=== PATIENT | female | born 1990 | race Caucasian/White ===

== ENCOUNTER 2018-02-20 20:20 | Emergency (ER) | payer OTHER ==
--- OUTSIDE RECORDS SUMMARY | 2018-02-20 20:22 | XMS REPORT | Clinical Summary ---
:1990 Author Organization [facility] Address [address] [place] [address] Phone Care Team Providers Name Role Phone Unavailable Primary Care Provider Unavailable Allergies No Known Allergies Current Medications Prescription Sig. Disp. Refills Start Date End Date Status levETIRAcetam Take 1 tablet 60 tablet 2 05/19/2017 Active (KEPPRA) 1000 MG (1,000 mg tablet total) by mouth 2 (two) times daily. vitamin Take 1 tablet 90 tablet 3 05/20/2017 Active w/obrjliq-cham-tkwb by mouth te ( PLUS) daily. 27 mg iron- 1 mg Tab folic acid Take 2 180 tablet 3 05/19/2017 05/19/2018 Active (FOLVITE) 1 MG tablets (2 mg tablet total) by mouth 2 (two) times daily. levETIRAcetam Take 1,000 mg 05/19/2017 Discontinued (KEPPRA) 1000 MG by mouth 2 tablet (two) times daily. escitalopram Take 1 tablet 30 tablet 2 05/20/2017 08/18/2017 oxalate (LEXAPRO) 5 (5 mg total) MG tablet by mouth daily for 90 days. Active Problems Problem Noted Date Hypokalemia 05/18/2017 Acute encephalopathy 05/14/2017 Seizure disorder (HCC) 05/14/2017 Leukocytosis 05/14/2017 Less than 8 weeks gestation of 05/14/2017 Resolved Problems Problem Noted Date Resolved Date Altered mental status 05/14/2017 05/18/2017 Encounters Date Type Specialty Care Team Description 05/14/2017 - [facility] General Internal Stew Soriano Acute 05/19/2017 Encounter Medicine MD Do encephalopathy;Less Pritesh, Dipaben than 8 weeks MD Hemant gestation of Maria Elena Clark, ;Leukocyto sis, unspecified Lina Becker, type;Seizure MD disorder (HCC);Transient alteration of awareness;Hypokalem ia after 02/19/2017 Social History Tobacco Use Types Packs/Day Years Used Date Never Smoker Alcohol Use Drinks/Week oz/Week Comments No Sex Assigned at Date Recorded Not on file Last Filed Vital Signs Vital Sign Reading Time Taken Blood Pressure 112/71 05/19/2017 7:39 AM GROUP PRODUCT MANAGER Pulse 84 05/19/2017 7:39 AM GROUP PRODUCT MANAGER Temperature 36.7 C (98 F) 05/19/2017 7:39 AM GROUP PRODUCT MANAGER Respiratory Rate 20 05/19/2017 7:39 AM GROUP PRODUCT MANAGER Oxygen Saturation 97% 05/19/2017 7:39 AM GROUP PRODUCT MANAGER Inhaled Oxygen Concentration - - Weight 63.5 kg (139 lb 14.4 oz) 05/19/2017 6:00 AM GROUP PRODUCT MANAGER Height 157.5 cm (5' 2") 05/16/2017 11:58 AM GROUP PRODUCT MANAGER Body Mass Index 25.59 05/19/2017 6:00 AM GROUP PRODUCT MANAGER Plan of Treatment Not on file Results RHYTHM STRIP - SCAN (05/20/2017 12:42 PM)CBC with platelet count + automated diff (05/18/2017 2:33 PM)Only the most recent of2 resultswithin the time period is included. Component Value Ref Range WBC 9.7 3.5 - 10.5 K/L RBC 4.31 3.93 - 5.22 M/L Hemoglobin 10.0 (L) 11.2 - 15.7 GM/DL Hematocrit 31.9 (L) 34.1 - 44.9 % MCV 74.0 (L) 79.4 - 94.8 fL MCH 23.2 (L) 25.6 - 32.2 pg MCHC 31.3 (L) 32.2 - 35.5 GM/DL RDW 19.0 (H) 11.7 - 14.4 % Platelets 259 150 - 450 K/CU MM MPV 9.9 9.4 - 12.3 fL nRBC 0 0 - 0 /100 WBC % Neutros 70 % % Lymphs 21 % % Monos 8 % % Eos 1 % % Baso 1 % # Neutros 6.75 (H) 1.56 - 6.13 K/L # Lymphs 2.01 1.18 - 3.74 K/L # Monos 0.75 (H) 0.24 - 0.36 K/L # Eos 0.07 0.04 - 0.36 K/L # Baso 0.08 0.01 - 0.08 K/L Immature Granulocytes-Relative 0 0 - 1 % Specimen Performing Laboratory Blood - Central Venous Line [address] [address] CBC with platelet count + automated diff (05/18/2017 2:33 PM)Only the most recent of2 resultswithin the time period is included. Specimen Performing Laboratory Blood Narrative The following orders were created for panel order CBC with platelet count + automated diff. Procedure Abnormality Status --------- ------ CBC with platelet count ...[[id number]]AbnormalFinal result Please view results for these tests on the individual orders. hCG, quantitative, (05/18/2017 2:32 PM) Component Value Ref Range hCG Quant 99140 (H) 0 - 10 mIU/mL Specimen Performing Laboratory Blood - Central Venous Line [address] [address] Narrative Non- Females: <10 mIU/mL Females: Gestation AgeReference Range(mIU/mL) 0.2-1 Week5-50 1-2 Cvepe13-241 2-3 Weeks 100-5,000 3-4 Weeks 500-10,000 4-5 Weeks 1,000-50,000 5-6 Weeks10,000-100,000 6-8 Weeks15,000-200,000 2-3 Months 10,000-100,000 Comprehensive metabolic panel (05/18/2017 2:32 PM) Component Value Ref Range Protein, Total 7.0 6.0 - 8.3 gm/dL Albumin 3.9 3.5 - 5.0 g/dL Alkaline Phosphatase 50 40 - 150 U/L Total Bilirubin 0.5 0.2 - 1.2 mg/dL Sodium 140 136 - 145 meq/L Potassium 3.4 (L) 3.5 - 5.1 meq/L Chloride 107 98 - 107 meq/L CO2 21 (L) 22 - 29 meq/L BUN 6 (L) 7 - 21 mg/dL Creatinine 0.54 (L) 0.57 - 1.25 mg/dL Glucose 76 70 - 105 mg/dL Calcium 9.2 8.4 - 10.2 mg/dL AST 57 (H) 5 - 34 U/L ALT 84 (H) 6 - 55 U/L EGFR 135Comment: ESTIMATED GFR IS NOT ACCURATE mL/min/1.73 sq m CREATININE CLEARANCE IN PREDICTING GLOMERULAR FILTRATION RATE. ESTIMATED GFR IS NOT APPLICABLE FOR DIALYSIS PATIENTS. Specimen Performing Laboratory Blood - Central Venous Line [address] first trimester (05/17/2017 5:30 AM) Specimen Performing Laboratory Hydrocapsule Narrative FINAL REPORT ULTRASOUND FIRST TRIMESTER, ULTRASOUND TRANSVAGINAL, ULTRASOUND DUPLEX DOPPLER HISTORY: Vaginal bleeding, COMPARISON: No comparison pelvic imaging TECHNIQUE: Real-time ultrasound of the pelvis was performed transabdominally and transvaginally. Examination included color and spectral Doppler evaluation of the ovaries and M-mode Doppler evaluation of the embryo. FINDINGS: The uterus measures 5.4 x 7.4 x 13.9 cm in size. No uterine mass lesion is visualized. There is an intrauterine gestational sac. Mean gestational sac diameter measures 2.8 cm, correlating with an estimated gestational age of 8 weeks 1 day. An embryonic pole is evident. Hugoton-rump length measures 0.63 cm, correlating with estimated gestational age of 6 weeks 4 days. Average ultrasound age is 7 weeks 3 days. There is a cardiac activity within the embryo with a heart rate of 108 bpm. A yolk sac is present in the gestational sac. The right ovary measures 2.0 x 2.5 x 3.2 cm.No right adnexal mass. Normal arterial and venous waveforms are present in the right ovary. The left ovary measures 2.4 x 2.8 x 3.4 cm. No left adnexal mass. Normal arterial and venous waveforms are present in the left ovary. Minimal anechoic free fluid is present in the pelvis, which can be a normal physiologic finding. IMPRESSION: 1. Single living intrauterine , with an average ultrasound age of 7 weeks 3 days. Signed: Lashell Garrido MD Report Verified Date/Time:05/17/2017 07:52:37 Reading Location: [facility] B1 C013X Ortho Consult Reading Room Procedure Note Interface, External Ris In - 06/02/2017 2:31 AM GROUP PRODUCT MANAGER FINAL REPORT ULTRASOUND FIRST TRIMESTER, ULTRASOUND TRANSVAGINAL, ULTRASOUND DUPLEX DOPPLER HISTORY: Vaginal bleeding, COMPARISON: No comparison pelvic imaging TECHNIQUE: Real-time ultrasound of the pelvis was performed transabdominally and transvaginally. Examination included color and spectral Doppler evaluation of the ovaries and M-mode Doppler evaluation of the embryo. FINDINGS: The uterus measures 5.4 x 7.4 x 13.9 cm in size. No uterine mass lesion is visualized. There is an intrauterine gestational sac. Mean gestational sac diameter measures 2.8 cm, correlating with an estimated gestational age of 8 weeks 1 day. An embryonic pole is evident. Hugoton-rump length measures 0.63 cm, correlating with estimated gestational age of 6 weeks 4 days. Average ultrasound age is 7 weeks 3 days. There is a cardiac activity within the embryo with a heart rate of 108 bpm. A yolk sac is present in the gestational sac. The right ovary measures 2.0 x 2.5 x 3.2 cm. No right adnexal mass. Normal arterial and venous waveforms are present in the right ovary. The left ovary measures 2.4 x 2.8 x 3.4 cm. No left adnexal mass. Normal arterial and venous waveforms are present in the left ovary. Minimal anechoic free fluid is present in the pelvis, which can be a normal physiologic finding. IMPRESSION: 1. Single living intrauterine , with an average ultrasound age of 7 weeks 3 days. Signed: Lashell Garrido MD Report Verified Date/Time: 05/17/2017 07:52:37 Reading Location: [facility] B1 [id number] Ortho Consult Reading Room Screen, urine (05/17/2017 4:38 AM) Component Value Ref Range Preg Test, Ur Positive Specimen Performing Laboratory Urine - Urine, Clean Catch [address] [address] MR brain without IV contrast (05/15/2017 7:10 PM) Specimen Performing Laboratory RIS Narrative FINAL REPORT MRI brain without contrast 05/15/2017 6:51 PM CLINICAL INDICATION: Epilepsy Stroke evaluation TECHNIQUE: Multiplanar, multisequence MR imaging of the brain was performed utilizing the following imaging sequences: Axial T1, T2, FLAIR, GRE, and DWI; sagittal and coronal T1-weighted images. COMPARISON: None available FINDINGS: Patient motion limits this examination. Pathology may be obscured. With this limitation mind, there is no infarct, hematoma, mass, extra-axial collection, or hydrocephalus. Normal appearing flow-voids are present in the major intracranial vascular structures. The sellar and pineal regions are normal. The craniovertebral junction is intact. The orbits, face, and skull base are without worrisome finding. IMPRESSION: Motion limited, but otherwise unremarkable noncontrast examination. Signed: Inderjit Cordova MD Report Verified Date/Time:05/15/2017 18:54:11 Reading Location: [facility] Reading Room Procedure Note Interface, External Ris In - 05/15/2017 7:11 PM GROUP PRODUCT MANAGER FINAL REPORT MRI brain without contrast 05/15/2017 6:51 PM CLINICAL INDICATION: Epilepsy Stroke evaluation TECHNIQUE: Multiplanar, multisequence MR imaging of the brain was performed utilizing the following imaging sequences: Axial T1, T2, FLAIR, GRE, and DWI; sagittal and coronal T1-weighted images. COMPARISON: None available FINDINGS: Patient motion limits this examination. Pathology may be obscured. With this limitation mind, there is no infarct, hematoma, mass, extra-axial collection, or hydrocephalus. Normal appearing flow-voids are present in the major intracranial vascular structures. The sellar and pineal regions are normal. The craniovertebral junction is intact. The orbits, face, and skull base are without worrisome finding. IMPRESSION: Motion limited, but otherwise unremarkable noncontrast examination. Signed: Inderjit Cordova MD Report Verified Date/Time: 05/15/2017 18:54:11 Reading Location: [facility] Reading Room AWAKE AND DROWSY (05/15/2017 10:56 AM) Specimen Performing Laboratory RIS Narrative DATE OF TEST: 05/15/2017 DATE OF REPORT 05/15/2017 ACC: [id number] EE Start time: 1034 Stop time: 1054 ICD-10: R56.9 CPT Code: 03115 HISTORY: 26 y/o woman with epilepsy found down and now with a prolonged post-ictal state. MEDICATIONS THAT COULD AFFECT EEG: Kera TECHNICAL SUMMARY: This is a digital video EEG recorded with 32 input channels reviewed with bipolar and referential montages using the modified combinatorial system nomenclature. DESCRIPTION OF RECORD: During the maximally alert state, the background consists of diffuse 5-7 Hz theta intermixed with rare 2-4 Hz delta activity. There is superimposed intermittent generalized rhythmic 4-6 Hz theta activity, consistent with ciganek rhythm which is a normal variant. The background demonstrates spontaneous variability. Drowsiness was characterized by background attenuation. No stage 2 sleep structures are present. EVENTS: During the study, the patient's mother mentioned that the patient stared off 4 times. There was no associated electrographic correlate. HV: Hyperventilation was not performed. PHOTIC STIMULATION: Flash stimulation was not done. IMPRESSION: Abnormal awake and drowsy EEG 1. Diffuse theta and rare delta slowing, reactive CLINICAL CORRELATION: The diffuse slowing seen in this record is consistent with a moderate encephalopathy. An EEG without epileptiform discharges does not exclude the possibility of epilepsy. If the clinical suspicion of epilepsy remains, consider additional EEG recordings. Marika Smith M.D. Neurophysiology Fellow Noemí Harper M.D. Neurophysiology Attending Procedure Note Interface, External Ris In - 05/15/2017 12:08 PM GROUP PRODUCT MANAGER DATE OF TEST: 05/15/2017 DATE OF REPORT 05/15/2017 ACC: [id number] EE Start time: 1034 Stop time: 1054 ICD-10: R56.9 CPT Code: 28957 HISTORY: 26 y/o woman with epilepsy found down and now with a prolonged post-ictal state. MEDICATIONS THAT COULD AFFECT EEG: Keppra TECHNICAL SUMMARY: This is a digital video EEG recorded with 32 input channels reviewed with bipolar and referential montages using the modified combinatorial system nomenclature. DESCRIPTION OF RECORD: During the maximally alert state, the background consists of diffuse 5-7 Hz theta intermixed with rare 2-4 Hz delta activity. There is superimposed intermittent generalized rhythmic 4-6 Hz theta activity, consistent with ciganek rhythm which is a normal variant. The background demonstrates spontaneous variability. Drowsiness was characterized by background attenuation. No stage 2 sleep structures are present. EVENTS: During the study, the patient's mother mentioned that the patient stared off 4 times. There was no associated electrographic correlate. HV: Hyperventilation was not performed. PHOTIC STIMULATION: Flash stimulation was not done. IMPRESSION: Abnormal awake and drowsy EEG 1. Diffuse theta and rare delta slowing, reactive CLINICAL CORRELATION: The diffuse slowing seen in this record is consistent with a moderate encephalopathy. An EEG without epileptiform discharges does not exclude the possibility of epilepsy. If the clinical suspicion of epilepsy remains, consider additional EEG recordings. Marika Smith M.D. Neurophysiology Fellow Noemí Harper M.D. Neurophysiology Attending Blood culture (05/15/2017 2:44 AM) Component Value Ref Range Result No growth in 5 days Specimen Performing Laboratory Blood - Arm, [place] [address] Procalcitonin (05/15/2017 2:43 AM) Component Value Ref Range Procalcitonin 0.17 (H) <0.05 ng/mL Specimen [place] [address] Narrative SEPSIS RISK (ng/mL) Low:0.05-0.50 Intermediate: 0.51-2.00 High: >=2.01 Lactic acid, venous, whole blood (05/15/2017 2:43 AM) Component Value Ref Range Lactate, Venous 0.6 0.5 - 2.2 mmol/L Specimen [place] [address] Narrative Effective 10/17/2015: Units/Reference Range Change New: 0.5-2.2 mmol/LPrevious: 5-20 mg/dL Prothrombin time/INR (05/15/2017 2:43 AM) Component Value Ref Range Protime 14.5 11.7 - 14.7 seconds INR 1.1 <=5.9 Specimen Performing Laboratory Blood [facility] [address] Narrative RECOMMENDED COUMADIN/WARFARIN INR THERAPY RANGES STANDARD DOSE: 2.0 - 3.0 Includes: PROPHYLAXIS for venous thrombosis, systemic embolization; TREATMENT for venous thrombosis and/or pulmonary embolus. HIGH RISK: Target INR is 2.5-3.5 for patients with mechanical heart valves. Phosphorus (05/15/2017 2:43 AM) Component Value Ref Range Phosphorus 3.1 2.3 - 4.7 mg/dL Specimen Performing Laboratory Blood [address] [address] Magnesium (05/15/2017 2:43 AM) Component Value Ref Range Magnesium 1.9 1.6 - 2.6 mg/dL Specimen Performing Laboratory [address] [address] Creatine Kinase (CK) (05/15/2017 2:43 AM) Component Value Ref Range Total CK 200 29 - 200 U/L Specimen Performing Laboratory [address] [address] Basic Metabolic Panel (05/15/2017 2:43 AM) Component Value Ref Range Sodium 139 136 - 145 meq/L Potassium 3.7 3.5 - 5.1 meq/L Chloride 110 (H) 98 - 107 meq/L CO2 19 (L) 22 - 29 meq/L BUN 8 7 - 21 mg/dL Creatinine 0.57 0.57 - 1.25 mg/dL Glucose 92 70 - 105 mg/dL Calcium 9.2 8.4 - 10.2 mg/dL EGFR 127Comment: ESTIMATED GFR IS NOT ACCURATE mL/min/1.73 sq m CREATININE CLEARANCE IN PREDICTING GLOMERULAR FILTRATION RATE. ESTIMATED GFR IS NOT APPLICABLE FOR DIALYSIS PATIENTS. Specimen Performing Laboratory Blood [address] [address] XR chest 1 view portable / bedside (05/15/2017 1:00 AM) Specimen Performing Laboratory GE RIS Narrative FINAL REPORT History: Infection. Comparison: None. Findings: A single view of the chest is submitted. The cardiomediastinal contours are unremarkable. There is no focal consolidation, pneumothorax, large pleural effusion or evidence of overt pulmonary edema. There is no acute bony abnormality. Impression: No acute abnormality. Signed: Shabnam Dailey MD Report Verified Date/Time:05/15/2017 01:06:06 Reading Location: [address] Reading Room Procedure Note Interface, External Ris In - 05/15/2017 1:30 AM GROUP PRODUCT MANAGER FINAL REPORT History: Infection. Comparison: None. Findings: A single view of the chest is submitted. The cardiomediastinal contours are unremarkable. There is no focal consolidation, pneumothorax, large pleural effusion or evidence of overt pulmonary edema. There is no acute bony abnormality. Impression: No acute abnormality. Signed: Shabnam Dailey MD Report Verified Date/Time: 05/15/2017 01:06:06 Reading Location: [address] Reading Room after 02/19/2017
--- OUTSIDE RECORDS SUMMARY | 2018-02-20 20:22 | XMS REPORT ---
:1990 [facility] Address [address] [place] [address] Care Team Providers Name Role Phone MILES RODAS Unavailable Unavailable Problems This patient has no known problems. Allergies, Adverse Reactions, Alerts This patient has no known allergies or adverse reactions. Medications This patient has no known medications. Results Test Description Test Time Test Comments Text Results Atomic Results Result Comments BLOOD CULTURE 2017-05-20 10:00:00 Test Item Value Reference Range Comments CULTURE (BEAKER) (test aagj=7781) No growth in 5 days HCG, QUANTITATIVE, [id number] 15:37:00 Test Item Value Reference Range Comments GONADOTROPIN, CHORIONIC (HCG) QUANT (BEAKER) 50361 mIU/mL 0-10 (test pfvn=612) Non- Females: <10 mIU/mL Females: Gestation Age Reference Range(mIU/mL) 0.2-1 Week 5-50 1-2 Weeks 50-500 2-3 Weeks 100-5,000 3-4Weeks 500-10,000 4 -5 Weeks 1,000-50,000 5-6 Weeks 10,000-100,000 6-8 Weeks 15,000-200,000 2-3 Months 10,000-100,000COMPREHENSIVE METABOLIC [id number] 15:10:00 Test Item Value Reference Range Comments TOTAL PROTEIN (BEAKER) 7.0 gm/dL 6.0-8.3 (test aajs=125) ALBUMIN (BEAKER) (test 3.9 g/dL 3.5-5.0 qtfj=6522) ALKALINE PHOSPHATASE 50 U/L 40-150 (BEAKER) (test bgzt=583) BILIRUBIN TOTAL (BEAKER) 0.5 mg/dL 0.2-1.2 (test vzbr=228) SODIUM (BEAKER) (test 140 meq/L 136-145 ubta=494) POTASSIUM (BEAKER) (test 3.4 meq/L 3.5-5.1 lagl=553) CHLORIDE (BEAKER) (test 107 meq/L 98-107 nfaw=443) CO2 (BEAKER) (test 21 meq/L 22-29 mjnk=050) BLOOD UREA NITROGEN 6 mg/dL 7-21 (BEAKER) (test xuhh=301) CREATININE (BEAKER) (test 0.54 mg/dL 0.57-1.25 ioez=483) GLUCOSE RANDOM (BEAKER) 76 mg/dL 70-105 (test woyh=893) CALCIUM (BEAKER) (test 9.2 mg/dL 8.4-10.2 fmto=384) AST (SGOT) (BEAKER) (test 57 U/L 5-34 bqji=762) ALT (SGPT) (BEAKER) (test 84 U/L 6-55 bzpq=753) EGFR (BEAKER) (test 135 mL/min/1.73 sq ESTIMATED GFR IS NOT yagc=7607) m ACCURATE CREATININE CLEARANCE IN PREDICTING GLOMERULAR FILTRATION RATE. ESTIMATED GFR IS NOT APPLICABLE FOR DIALYSIS PATIENTS. CBC W/PLT COUNT & AUTO [id number] 14:53:00 Test Item Value Reference Range Comments WHITE BLOOD CELL COUNT (BEAKER) (test zrlh=973) 9.7 K/ L 3.5-10.5 RED BLOOD CELL COUNT (BEAKER) (test jzle=823) 4.31 M/ L 3.93-5.22 HEMOGLOBIN (BEAKER) (test nhut=448) 10.0 GM/DL 11.2-15.7 HEMATOCRIT (BEAKER) (test five=848) 31.9 % 34.1-44.9 MEAN CORPUSCULAR VOLUME (BEAKER) (test tgpq=717) 74.0 fL 79.4-94.8 MEAN CORPUSCULAR HEMOGLOBIN (BEAKER) (test 23.2 pg 25.6-32.2 csxr=166) MEAN CORPUSCULAR HEMOGLOBIN CONC (BEAKER) (test 31.3 GM/DL 32.2-35.5 wqqp=706) RED CELL DISTRIBUTION WIDTH (BEAKER) (test 19.0 % 11.7-14.4 prvs=111) PLATELET COUNT (BEAKER) (test wlya=432) 259 K/CU MM 150-450 MEAN PLATELET VOLUME (BEAKER) (test uqpx=585) 9.9 fL 9.4-12.3 NUCLEATED RED BLOOD CELLS (BEAKER) (test 0 /100 WBC 0-0 wypg=312) NEUTROPHILS RELATIVE PERCENT (BEAKER) (test 70 % byoy=541) LYMPHOCYTES RELATIVE PERCENT (BEAKER) (test 21 % girj=345) MONOCYTES RELATIVE PERCENT (BEAKER) (test 8 % yjag=309) EOSINOPHILS RELATIVE PERCENT (BEAKER) (test 1 % hzsv=848) BASOPHILS RELATIVE PERCENT (BEAKER) (test 1 % bfwf=081) NEUTROPHILS ABSOLUTE COUNT (BEAKER) (test 6.75 K/ L 1.56-6.13 ipaq=210) LYMPHOCYTES ABSOLUTE COUNT (BEAKER) (test 2.01 K/ L 1.18-3.74 bmgn=623) MONOCYTES ABSOLUTE COUNT (BEAKER) (test 0.75 K/ L 0.24-0.36 hldk=979) EOSINOPHILS ABSOLUTE COUNT (BEAKER) (test 0.07 K/ L 0.04-0.36 zzdb=957) BASOPHILS ABSOLUTE COUNT (BEAKER) (test 0.08 K/ L 0.01-0.08 ullg=584) IMMATURE GRANULOCYTES-RELATIVE PERCENT (BEAKER) 0 % 0-1 (test pnnq=9270) U/S, , FIRST [id number] 07:52:00Reason for exam:-> Reason for exam:->please include transvaginal ultrasound for datingFINAL REPORT ULTRASOUND FIRST TRIMESTER , ULTRASOUND TRANSVAGINAL, ULTRASOUND DUPLEX DOPPLER HISTORY: Vaginal bleeding, COMPARISON: No comparison pelvic imaging TECHNIQUE: Real-time ultrasound of the pelvis was performed transabdominally and transvaginally. Examination included color and spectral Doppler evaluation of the ovaries and M- mode Doppler evaluationof the embryo. FINDINGS: The uterus measures 5.4 x 7.4 x 13.9 cm in size. No uterine mass lesion is visualized. There is an intrauterine gestational sac. Mean gestational sac diameter measures 2.8 cm, correlating with an estimated gestational age of 8 weeks 1 day. An embryonic pole is evident. [place]-rump length measures 0.63 cm, correlating with estimated [...] 7 weeks 3 days. Signed: Lashell Garrido Verified Date/Time: 05/17/2017 07:52:37 Reading Location: [address] Ortho Consult Reading Room PREGNANCY SCREEN, [id number] 05:28:00 Test Item Value Reference Range Comments TEST URINE (BEAKER) (test sjkb=625) Positive MR, BRAIN, WITHOUT [id number] 18:54:00Reason for exam:->Stroke evaluationFINAL REPORT MRI brain without contrast 2016 6:51 PM CLINICAL INDICATION: EpilepsyStroke evaluation TECHNIQUE: Multiplanar, multisequence MR imaging of the brain was performed utilizing the following imaging sequences: Axial T1, T2, FLAIR, GRE, and DWI; sagittal and coronalT1-weighted images. COMPARISON: None available FINDINGS: Patient motion [...] otherwise unremarkable noncontrast examination. Signed: Inderjit Cordova Verified Date/Time: 05/15/2017 18 :54:11 Reading Location: [facility] Radiology Reading Room EEG AWAKE AND [id number] 12:08:00Reason for exam:->? nonconvulsive statusDATE OF TEST: 2016DATE OF REPORT 05/15/2017 ACC: [id number] EE Start time: 1034 Stop time: 1054 ICD-10: R56.9CPT Code: 57874JAMIOHA: 26 y/o woman with epilepsy found down and now with a prolonged post-ictal state.MEDICATIONS THAT COULD AFFECT EEG: KeppraTECHNICAL SUMMARY: This is a digitalvideo EEG recorded with 32 input channels reviewed with bipolar and referential montages using the modified combinatorial system nomenclature.DESCRIPTION OF RECORD: During the maximally alert state, [...] 4 times. There was no associated electrographic correlate.HV: Hyperventilation was not performed. PHOTIC STIMULATION: Flash stimulation was not done.IMPRESSION: Abnormal awake and drowsy EEG1. Diffuse theta and rare delta slowing, reactiveCLINICAL CORRELATION : The diffuse slowing seen in this record is consistent with a moderate encephalopathy.An EEG without epileptiform discharges does not exclude the possibility of epilepsy. If the clinicalsuspicion of epilepsy remains, consider additional EEG recordings.Marika Smith M.D.Neurophysiology FellowNoemí Harper M.D.Neurophysiology Attending [id number] 04:27:00 Test Item Value Reference Range Comments PROCALCITONIN (BEAKER) (test nmnf=5818) 0.17 ng/mL <0.05 SEPSIS RISK (ng/mL)Low: 0.05-0.50Intermediate: 0.51-2.00High: & gt;=[id number] 03:15:00 Test Item Value Reference Range Comments PHOSPHORUS (BEAKER) (test ljob=086) 3.1 mg/dL 2.3-4.7 [id number] 03:15:00 Test Item Value Reference Range Comments MAGNESIUM (BEAKER) (test zgwi=015) 1.9 mg/dL 1.6-2.6 BASIC METABOLIC [id number] 03:15:00 Test Item Value Reference Range Comments SODIUM (BEAKER) (test 139 meq/L 136-145 nxzd=620) POTASSIUM (BEAKER) (test 3.7 meq/L 3.5-5.1 ppet=232) CHLORIDE (BEAKER) (test 110 meq/L 98-107 gxsv=460) CO2 (BEAKER) (test 19 meq/L 22-29 ldya=928) BLOOD UREA NITROGEN 8 mg/dL 7-21 (BEAKER) (test fjrp=291) CREATININE (BEAKER) (test 0.57 mg/dL 0.57-1.25 izvc=623) GLUCOSE RANDOM (BEAKER) 92 mg/dL 70-105 (test hdua=988) CALCIUM (BEAKER) (test 9.2 mg/dL 8.4-10.2 fpav=658) EGFR (BEAKER) (test 127 mL/min/1.73 sq m ESTIMATED GFR IS NOT vxqo=1109) ACCURATE CREATININE CLEARANCE IN PREDICTING GLOMERULAR FILTRATION RATE. ESTIMATED GFR IS NOT APPLICABLE FOR DIALYSIS PATIENTS. CREATINE KINASE (CK)2017-05-15 03:15:00 Test Item Value Reference Range Comments CREATINE KINASE TOTAL (BEAKER) (test zhsw=092) 200 U/L 29-200 LACTIC ACID, VENOUS, WHOLE [id number] 03:09:00 Test Item Value Reference Range Comments LACTATE BLOOD VENOUS (2) (BEAKER) (test 0.6 mmol/L 0.5-2.2 xwcv=2800) Effective 10/17/2015: Units/Reference Range ChangeNew: 0.5-2.2 mmol/L Previous: 5 -20 mg/dLPROTHROMBIN TIME/[id number] 03:07:00 Test Item Value Reference Range Comments PROTIME (BEAKER) (test gjwa=749) 14.5 seconds 11.7-14.7 INR (BEAKER) (test kzso=746) 1.1 <=5.9 RECOMMENDED COUMADIN/WARFARIN INR THERAPY RANGESSTANDARD DOSE: 2.0 - 3.0 Includes: PROPHYLAXIS forvenous thrombosis, systemic embolization; TREATMENT for venous thrombosis and/or pulmonary embolus.HIGH RISK: Target INR is 2.5-3.5 for patients with mechanical heart valves.CBC W/PLT COUNT & AUTO [id number] 03:00:00 Test Item Value Reference Range Comments WHITE BLOOD CELL COUNT (BEAKER) (test fhha=016) 21.6 K/ L 3.5-10.5 RED BLOOD CELL COUNT (BEAKER) (test ikah=641) 4.04 M/ L 3.93-5.22 HEMOGLOBIN (BEAKER) (test azdv=095) 9.3 GM/DL 11.2-15.7 HEMATOCRIT (BEAKER) (test qrbu=958) 30.1 % 34.1-44.9 MEAN CORPUSCULAR VOLUME (BEAKER) (test kvpu=126) 74.5 fL 79.4-94.8 MEAN CORPUSCULAR HEMOGLOBIN (BEAKER) (test 23.0 pg 25.6-32.2 myhg=811) MEAN CORPUSCULAR HEMOGLOBIN CONC (BEAKER) (test 30.9 GM/DL 32.2-35.5 gpuf=418) RED CELL DISTRIBUTION WIDTH (BEAKER) (test 19.3 % 11.7-14.4 emcq=102) PLATELET COUNT (BEAKER) (test ripj=038) 250 K/CU MM 150-450 MEAN PLATELET VOLUME (BEAKER) (test iklb=726) 10.3 fL 9.4-12.3 NUCLEATED RED BLOOD CELLS (BEAKER) (test 0 /100 WBC 0-0 igeh=003) NEUTROPHILS RELATIVE PERCENT (BEAKER) (test 83 % jstl=462) LYMPHOCYTES RELATIVE PERCENT (BEAKER) (test 9 % sxza=841) MONOCYTES RELATIVE PERCENT (BEAKER) (test 8 % oupd=976) EOSINOPHILS RELATIVE PERCENT (BEAKER) (test 0 % byka=713) BASOPHILS RELATIVE PERCENT (BEAKER) (test 0 % oacm=290) NEUTROPHILS ABSOLUTE COUNT (BEAKER) (test 17.85 K/ L 1.56-6.13 vlnw=279) LYMPHOCYTES ABSOLUTE COUNT (BEAKER) (test 1.98 K/ L 1.18-3.74 ntwj=396) MONOCYTES ABSOLUTE COUNT (BEAKER) (test 1.62 K/ L 0.24-0.36 bwaq=626) EOSINOPHILS ABSOLUTE COUNT (BEAKER) (test 0.01 K/ L 0.04-0.36 gkkh=850) BASOPHILS ABSOLUTE COUNT (BEAKER) (test 0.04 K/ L 0.01-0.08 rtkv=531) IMMATURE GRANULOCYTES-RELATIVE PERCENT (BEAKER) 1 % 0-1 (test mulk=1032) RAD, CHEST, 1 VIEW, NON [id number] 01:06:00Reason for exam:->possible infectionShould this be performed at the bedside?->YesFINAL REPORT History: Infection. Comparison: None. Findings: A single view of the chest is submitted. The cardiomediastinal contours are unremarkable. There is no focal consolidation, pneumothorax, large pleural effusion or evidence of overt pulmonary edema. There is no acute bony abnormality. Impression: No acute abnormality. Signed: Shabnam Dailey MDReport Verified Date/Time: 2016 01:06:06 Reading Location: [address] Reading Room
[2018-02-20] MEDS ORDERED: NA CHLORIDE 0.9% 1,000 ML ONE ×2 (20:32→21:41)
[2018-02-20] MEDS ORDERED: NA CHLORIDE 0.9% 100 ML IV ONE (20:58)
[2018-02-20] MEDS ORDERED: LEVETIRACETAM 500 MG/5 ML VIAL IV ONE (20:58)
[2018-02-20 21:02] LABS: Absolute Lymphocytes (CBC) 3.4 K/uL (0.7-4.9); Absolute Monocytes 1.2 K/uL (0.1-1.3); Absolute Neutrophil 5.3 K/uL (1.8-8.0); Basophils % 0.9 % (0-1.3); Lymphocytes % 33.7 % (15.3-44.8); MCH 31.1 pg (27.0-35.0); MCV 91.9 fL (80-100); MPV 8.4 fL (7.6-11.3); Monocytes % 11.7 % (3.3-12.3); RBC Red Blood Cell Count 4.36 M/uL (3.86-4.86)
[2018-02-20 21:19] LABS: Albumin 4.4 g/dL (3.4-5.0); Bilirubin Total 0.4 mg/dL (0.2-1.0); Potassium 3.3 mmol/L (3.5-5.1); Protein, Total 8.1 g/dL (6.4-8.2)
[2018-02-20 21:49] LABS: Urine Blood 1+ (NEG); Urine Glucose NEGATIVE (NEG); Urine Protein 1+ (NEG); Urine Specific Gravity >1.030 (1.005-1.030); Urine pH 5.5 (5.0-7.0)
--- NOTE | 2018-02-21 00:19 | EDPHYS ---
Physician Documentation [facility] Name: Heather Hope Age: 27 yrs Sex: Female : 1990 Arrival Date: 02/20/2018 Time: 20:23 Bed 2 Private MD: ED Physician Alexandre Tomas HPI: 02/20 20:30 This 27 yrs old Female presents to ER via EMS with complaints of Seizure. ps1 20:30 long history of seizure and on Keppra. Unknown compliance. Has history of stress ps1 induced seizures. Managed by Monserrat. Had two witnessed seizures today. Got into argument with boyfriend today. Seizure lasted minutes and EMS called. 2mg ativan given and then had one in ambulance that spontaneously resolved. Pt currently post ictal. . 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 - Social history:: Smoking status: Patient/guardian denies using tobacco. - Ebola Screening: : No symptoms or risks identified at this time. ROS: 20:30 Unable to obtain ROS due to obtunded state, post ictal. ps1 Exam: 20:30 Head/Face: Normocephalic, atraumatic. Eyes: Pupils equal round and reactive to light, ps1 extra-ocular motions intact. Lids and lashes normal. Conjunctiva and sclera are non-icteric and not injected. Chest/axilla: Normal chest wall appearance and motion. Nontender with no deformity. No lesions are appreciated. Respiratory: Lungs have equal breath sounds bilaterally, clear to auscultation and percussion. No rales, rhonchi or wheezes noted. No increased work of breathing, no retractions or nasal flaring. Abdomen/GI: Soft, non-tender, with normal bowel sounds. No distension or tympany. No guarding or rebound. No evidence of tenderness throughout. 20:30 Constitutional: The patient appears ubtunded and post ictal 20:30 Cardiovascular: Rate: tachycardic, Rhythm: regular, Pulses: no pulse deficits are appreciated. 02/21 00:20 Head/face: Noted is contusion, of the forehead. ps1 Vital Signs: 02/20 20:26 BP 141 / 88; Pulse 138; Resp 20; Pulse Ox 99% on R/A; Weight 70.31 kg; Height 5 ft. 3 tl2 in. (160.02 cm); 21:15 BP 121 / 81; Pulse 126; Resp 14; Pulse Ox 99% on R/A; tl2 21:31 BP 128 / 80; Pulse 119; Resp 22; Pulse Ox 97% on R/A; tl2 22:00 BP 126 / 81; Pulse 101; Resp 18; Pulse Ox 97% on R/A; tl2 22:46 BP 117 / 77; Pulse 94; Resp 24; Pulse Ox 99% on R/A; tl2 23:35 BP 112 / 76; Pulse 88; Resp 14; Pulse Ox 98% on R/A; tl2 02/21 00:41 BP 109 / 71; Pulse 89; Resp 18; Pulse Ox 98% on R/A; tl2 02/20 20:26 Body Mass Index 27.46 (70.31 kg, 160.02 cm) tl2 Thomas Coma Score: 02/20 20:26 Eye Response: to voice(3). Verbal Response: confused(4). Motor Response: withdraws from tl2 pain(4). Total: 11. 21:31 Eye Response: spontaneous(4). Verbal Response: oriented(5). Motor Response: obeys tl2 commands(6). Total: 15. MDM: 20:36 Patient medically screened. ps1 02/21 00:19 Data reviewed: vital signs, nurses notes, lab test result(s), and as a result, I will ps1 discharge patient. Counseling: I had a detailed discussion with the patient and/or guardian regarding: the historical points, exam findings, and any diagnostic results supporting the discharge/admit diagnosis, the need for outpatient follow up, a neurologist. 02/20 20:46 Order name: Lactate; Complete Time: 22:06 ps1 02/20 20:46 Order name: CBC with Diff; Complete Time: 21:11 ps1 02/20 20:46 Order name: CMP; Complete Time: 21:23 ps1 02/20 21:32 Order name: Urine Dipstick--Ancillary (enter results); Complete Time: 22:06 2 02/20 21:32 Order name: Urine --Ancillary (enter results); Complete Time: 22:06 mw2 02/20 20:46 Order name: Urine Dipstick-Ancillary (obtain specimen); Complete Time: 21:33 ps1 02/20 21:16 Order name: Straight Cath; Complete Time: 21:33 tl2 02/20 23:54 Order name: Lactate Sepsis 2 HR Follow-up; Complete Time: 00:16 EDMS Administered Medications: 02/20 20:48 Drug: NS 0.9% 1000 ml Route: IV; Rate: 1 bolus; Site: right hand; tl1 21:36 Follow up: IV Status: Completed infusion tl1 20:56 Drug: Keppra 1000 mg Route: IV; Rate: calculated rate; Infused Over: 30 mins; Site: tl2 right hand; 21:32 Follow up: IV Status: Completed infusion tl2 21:36 Drug: NS 0.9% 1000 ml Route: IV; Rate: 1 bolus; Site: right hand; tl1 02/21 00:43 Follow up: IV Status: Completed infusion; IV Intake: 1000ml tl2 Disposition: 00:20 Chart complete. ps1 Disposition: 02/21/18 00:18 Discharged to Home. Impression: recurrent seizure. - Condition is Stable. - Discharge Instructions: Seizure, Adult. - Medication Reconciliation Form, Thank You Letter, Antibiotic Education, Prescription Opioid Use form. - Follow up: Private Physician; When: As needed; Reason: Recheck today's complaints, Continuance of care, Re-evaluation by your physician. Follow up: Emergency Department; When: As needed; Reason: Worsening of condition. - Problem is an acute exacerbation. - Symptoms have improved. Signatures: Dispatcher [employer] [facility] Sofia Smith RN RN tl1 Kristyn Garza RN RN tl2 Alexandre Tomas MD MD ps1 Corrections: (The following items were deleted from the chart) 02/20 23:29 23:20 LACTATE+C.LAB.BRZ ordered. [facility] 02/21 00:58 00:18 02/21/2018 00:18 Discharged to Home. Impression: recurrent seizure. Condition is tl2 Stable. Forms are Medication Reconciliation Form, Thank You Letter, Antibiotic Education, Prescription Opioid Use. Follow up: Private Physician; When: As needed; Reason: Recheck today's complaints, Continuance of care, Re-evaluation by your physician. Follow up: Emergency Department; When: As needed; Reason: Worsening of condition. Problem is an acute exacerbation. Symptoms have improved. ps1
--- NOTE | 2018-02-21 00:19 | ER ---
Nurse's Notes [facility] Name: Heather Hope Age: 27 yrs Sex: Female : 1990 Arrival Date: 02/20/2018 Time: 20:23 Bed 2 Private MD: Diagnosis: recurrent seizure Presentation: 02/20 20:24 Presenting complaint: EMS states: Pt had a small seizure today at 1300 and had another tl2 seizure that last 4 mins prior to EMS arrival. EMS gave 2 mg IM Ativan. EMS reports that pt had short seizure en route but resolved on it's own. Pt is post ictal. Transition of care: patient was not received from another setting of care. Onset of symptoms was February 20, 2018 at 20:00. Risk Assessment: Do you want to hurt yourself or someone else? Patient reports no desire to harm self or others. Initial Sepsis Screen: Does the patient meet any 2 criteria? No. Patient's initial sepsis screen is negative. Does the patient have a suspected source of infection? No. Patient's initial sepsis screen is negative. Care prior to arrival: Medication(s) given: 2 mg IM ativan. 20:24 Method Of Arrival: EMS: [facility] tl2 20:24 Acuity: DARLYN 2 tl2 Triage Assessment: 20:26 General: Appears in no apparent distress. uncomfortable, Behavior is listless, post tl2 ictal. Pain: Unable to use pain scale. Patient is disoriented. Neuro: Level of Consciousness is post ictal, Oriented to non verbal. Cardiovascular: Patient's skin is warm and dry. Respiratory: Airway is patent Respiratory effort is even, unlabored, Respiratory pattern is regular, symmetrical. GI: No signs and/or symptoms were reported involving the gastrointestinal system. : No signs and/or symptoms were reported regarding the genitourinary system. Derm: Skin is pink, warm \T\ dry. Injury Description: Head injury sustained to forehead is closed, small hematoma was sustained 30-60 minutes ago. 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 - Social history:: Smoking status: Patient/guardian denies using tobacco. - Ebola Screening: : No symptoms or risks identified at this time. Screenin:29 Abuse screen: Denies threats or abuse. Nutritional screening: No deficits noted. tl2 Tuberculosis screening: No symptoms or risk factors identified. Fall Risk Fall in past 12 months (25 points). Secondary diagnosis (15 points) seizures, IV access (20 points). Assessment: 20:30 General: see triage assessment. tl2 21:15 Reassessment: Patient appears in no apparent distress at this time. No changes from tl2 previously documented assessment. Patient and/or family updated on plan of care and expected duration. Pain level reassessed. 22:00 Reassessment: Pt beginning to wake up and is AOx3. Awaiting further lab results. tl2 23:35 Reassessment: Patient appears in no apparent distress at this time. Patient and/or tl2 family updated on plan of care and expected duration. Pain level reassessed. Patient is alert, oriented x 3, equal unlabored respirations, skin warm/dry/pink. 02/21 00:41 Reassessment: Pt was able to ambulate around room. Called mother to picker/puller patient. tl2 Vital Signs: 02/20 20:26 BP 141 / 88; Pulse 138; Resp 20; Pulse Ox 99% on R/A; Weight 70.31 kg; Height 5 ft. 3 tl2 in. (160.02 cm); 21:15 BP 121 / 81; Pulse 126; Resp 14; Pulse Ox 99% on R/A; tl2 21:31 BP 128 / 80; Pulse 119; Resp 22; Pulse Ox 97% on R/A; tl2 22:00 BP 126 / 81; Pulse 101; Resp 18; Pulse Ox 97% on R/A; tl2 22:46 BP 117 / 77; Pulse 94; Resp 24; Pulse Ox 99% on R/A; tl2 23:35 BP 112 / 76; Pulse 88; Resp 14; Pulse Ox 98% on R/A; tl2 02/21 00:41 BP 109 / 71; Pulse 89; Resp 18; Pulse Ox 98% on R/A; tl2 02/20 20:26 Body Mass Index 27.46 (70.31 kg, 160.02 cm) tl2 Thomas Coma Score: 02/20 20:26 Eye Response: to voice(3). Verbal Response: confused(4). Motor Response: withdraws from tl2 pain(4). Total: 11. 21:31 Eye Response: spontaneous(4). Verbal Response: oriented(5). Motor Response: obeys tl2 commands(6). Total: 15. ED Course: 20:23 Patient arrived in ED. tl2 20:24 Alexandre Tomas MD is Attending Physician. ps1 20:26 Triage completed. tl2 20:26 Arm band placed on right wrist. tl2 20:29 Patient has correct armband on for positive identification. Bed in low position. Call tl2 light in reach. Side rails up X2. Adult w/ patient. Seizure precautions initiated. 20:29 Inserted saline lock: 22 gauge in right hand, using aseptic technique. Blood collected. tl2 placed by CLAUDIA Padron. 02/21 00:41 No provider procedures requiring assistance completed. IV discontinued, intact, tl2 bleeding controlled, No redness/swelling at site. Pressure dressing applied. 00:57 Kristyn Garza RN is Primary Nurse. tl2 Administered Medications: 02/20 20:48 Drug: NS 0.9% 1000 ml Route: IV; Rate: 1 bolus; Site: right hand; tl1 21:36 Follow up: IV Status: Completed infusion tl1 20:56 Drug: Keppra 1000 mg Route: IV; Rate: calculated rate; Infused Over: 30 mins; Site: tl2 right hand; 21:32 Follow up: IV Status: Completed infusion tl2 21:36 Drug: NS 0.9% 1000 ml Route: IV; Rate: 1 bolus; Site: right hand; tl1 02/21 00:43 Follow up: IV Status: Completed infusion; IV Intake: 1000ml tl2 Intake: 00:43 IV: 1000ml; Total: 1000ml. tl2 Outcome: 00:18 Discharge ordered by . ps1 00:41 Discharged to home via wheelchair, with family. tl2 00:41 Condition: stable 00:41 Discharge instructions given to patient, family, Instructed on discharge instructions, follow up and referral plans. Demonstrated understanding of instructions, follow-up care. 00:58 Patient left the ED. tl2 Signatures: Sofia Smith RN RN tl1 Kristyn Garza RN RN tl2 Tomas, Alexandre, MD MD ps1
[2018-02-21 01:22] VITALS: O2SAT 98
[2018-02-21 01:23] VITALS: BP 109/71
== END 2018-02-21 00:58 | disposition home or self-care (01) ==
LOC: ER 20:20
DX: G40.802 Other epilepsy, not intractable, without status epilepticus (principal)
CPT/HCPCS: 36415; 80053; 81003; 81025; 83605; 85025; 96361; 96365; 99284; J1953; J7030

== ENCOUNTER 2018-04-08 16:36 | Emergency (ER) | payer OTHER ==
--- OUTSIDE RECORDS SUMMARY | 2018-04-08 16:38 | XMS REPORT ---
:1990 [facility] Address [address] [place] [address] Care Team Providers Name Role Phone MILES RODAS Unavailable Unavailable Problems This patient has no known problems. Allergies, Adverse Reactions, Alerts This patient has no known allergies or adverse reactions. Medications This patient has no known medications. Results Test Description Test Time Test Comments Text Results Atomic Results Result Comments BLOOD CULTURE 2017-05-20 10:00:00 Test Item Value Reference Range Comments CULTURE (BEAKER) (test lmqi=7181) No growth in 5 days HCG, QUANTITATIVE, [id number] 15:37:00 Test Item Value Reference Range Comments GONADOTROPIN, CHORIONIC (HCG) QUANT (BEAKER) 61960 mIU/mL 0-10 (test wiks=855) Non- Females: <10 mIU/mL Females: Gestation Age Reference Range(mIU/mL) 0.2-1 Week 5-50 1-2 Weeks 50-500 2-3 Weeks 100-5,000 3-4Weeks 500-10,000 4 -5 Weeks 1,000-50,000 5-6 Weeks 10,000-100,000 6-8 Weeks 15,000-200,000 2-3 Months 10,000-100,000COMPREHENSIVE METABOLIC [id number] 15:10:00 Test Item Value Reference Range Comments TOTAL PROTEIN (BEAKER) 7.0 gm/dL 6.0-8.3 (test qdga=074) ALBUMIN (BEAKER) (test 3.9 g/dL 3.5-5.0 ykmu=0458) ALKALINE PHOSPHATASE 50 U/L 40-150 (BEAKER) (test deob=221) BILIRUBIN TOTAL (BEAKER) 0.5 mg/dL 0.2-1.2 (test acns=224) SODIUM (BEAKER) (test 140 meq/L 136-145 fbmw=392) POTASSIUM (BEAKER) (test 3.4 meq/L 3.5-5.1 tppa=379) CHLORIDE (BEAKER) (test 107 meq/L 98-107 pbjs=832) CO2 (BEAKER) (test 21 meq/L 22-29 evbd=817) BLOOD UREA NITROGEN 6 mg/dL 7-21 (BEAKER) (test snyr=222) CREATININE (BEAKER) (test 0.54 mg/dL 0.57-1.25 uzkl=965) GLUCOSE RANDOM (BEAKER) 76 mg/dL 70-105 (test aqno=877) CALCIUM (BEAKER) (test 9.2 mg/dL 8.4-10.2 hoxj=833) AST (SGOT) (BEAKER) (test 57 U/L 5-34 cboy=774) ALT (SGPT) (BEAKER) (test 84 U/L 6-55 yimf=202) EGFR (BEAKER) (test 135 mL/min/1.73 sq ESTIMATED GFR IS NOT raia=6294) m ACCURATE CREATININE CLEARANCE IN PREDICTING GLOMERULAR FILTRATION RATE. ESTIMATED GFR IS NOT APPLICABLE FOR DIALYSIS PATIENTS. CBC W/PLT COUNT & AUTO [id number] 14:53:00 Test Item Value Reference Range Comments WHITE BLOOD CELL COUNT (BEAKER) (test cejj=106) 9.7 K/ L 3.5-10.5 RED BLOOD CELL COUNT (BEAKER) (test ptyi=731) 4.31 M/ L 3.93-5.22 HEMOGLOBIN (BEAKER) (test dwuc=591) 10.0 GM/DL 11.2-15.7 HEMATOCRIT (BEAKER) (test gogc=310) 31.9 % 34.1-44.9 MEAN CORPUSCULAR VOLUME (BEAKER) (test lark=573) 74.0 fL 79.4-94.8 MEAN CORPUSCULAR HEMOGLOBIN (BEAKER) (test 23.2 pg 25.6-32.2 wehg=555) MEAN CORPUSCULAR HEMOGLOBIN CONC (BEAKER) (test 31.3 GM/DL 32.2-35.5 yujx=138) RED CELL DISTRIBUTION WIDTH (BEAKER) (test 19.0 % 11.7-14.4 kbax=684) PLATELET COUNT (BEAKER) (test tany=729) 259 K/CU MM 150-450 MEAN PLATELET VOLUME (BEAKER) (test kxaf=572) 9.9 fL 9.4-12.3 NUCLEATED RED BLOOD CELLS (BEAKER) (test 0 /100 WBC 0-0 nbyb=943) NEUTROPHILS RELATIVE PERCENT (BEAKER) (test 70 % lpts=582) LYMPHOCYTES RELATIVE PERCENT (BEAKER) (test 21 % kzdc=721) MONOCYTES RELATIVE PERCENT (BEAKER) (test 8 % idcy=252) EOSINOPHILS RELATIVE PERCENT (BEAKER) (test 1 % otti=623) BASOPHILS RELATIVE PERCENT (BEAKER) (test 1 % dago=129) NEUTROPHILS ABSOLUTE COUNT (BEAKER) (test 6.75 K/ L 1.56-6.13 vqcp=171) LYMPHOCYTES ABSOLUTE COUNT (BEAKER) (test 2.01 K/ L 1.18-3.74 hqju=155) MONOCYTES ABSOLUTE COUNT (BEAKER) (test 0.75 K/ L 0.24-0.36 ehqh=220) EOSINOPHILS ABSOLUTE COUNT (BEAKER) (test 0.07 K/ L 0.04-0.36 kdad=435) BASOPHILS ABSOLUTE COUNT (BEAKER) (test 0.08 K/ L 0.01-0.08 tuxu=593) IMMATURE GRANULOCYTES-RELATIVE PERCENT (BEAKER) 0 % 0-1 (test rrdv=7525) U/S, , FIRST [id number] 07:52:00Reason for exam:-> Reason for exam:->please include [...] 1 day. An embryonic pole is evident. [place]-rump length measures 0.63 cm, correlating with estimated [...] Garrido Verified Date/Time: 05/17/2017 07:52:37 Reading Location: [address] Ortho Consult Reading Room PREGNANCY SCREEN, [id number] 05:28:00 Test Item Value Reference Range Comments TEST URINE (BEAKER) (test eivb=043) Positive MR, BRAIN, WITHOUT [id number] 18:54:00Reason for exam:->Stroke evaluationFINAL REPORT MRI brain [...] Verified Date/Time: 05/15/2017 18 :54:11 Reading Location: [facility] Radiology Reading Room EEG AWAKE AND [id number] 12:08:00Reason for exam:->? nonconvulsive statusDATE OF TEST: 2016DATE OF REPORT 05/15/2017 ACC: [id number] EE Start time: 1034 Stop time: 1054 ICD-10: R56.9CPT Code: 72839OIKNJIH: 26 y/o woman with epilepsy found down [...] recordings.Marika Smith M.D.Neurophysiology FellowNoemí Harper M.D.Neurophysiology Attending [id number] 04:27:00 Test Item Value Reference Range Comments PROCALCITONIN (BEAKER) (test aznq=5235) 0.17 ng/mL <0.05 SEPSIS RISK (ng/mL)Low: 0.05-0.50Intermediate: 0.51-2.00High: & gt;=[id number] 03:15:00 Test Item Value Reference Range Comments PHOSPHORUS (BEAKER) (test bckl=873) 3.1 mg/dL 2.3-4.7 [id number] 03:15:00 Test Item Value Reference Range Comments MAGNESIUM (BEAKER) (test sgnv=975) 1.9 mg/dL 1.6-2.6 BASIC METABOLIC [id number] 03:15:00 Test Item Value Reference Range Comments SODIUM (BEAKER) (test 139 meq/L 136-145 buzg=793) POTASSIUM (BEAKER) (test 3.7 meq/L 3.5-5.1 fxbe=590) CHLORIDE (BEAKER) (test 110 meq/L 98-107 bnce=473) CO2 (BEAKER) (test 19 meq/L 22-29 ikpe=729) BLOOD UREA NITROGEN 8 mg/dL 7-21 (BEAKER) (test gecn=413) CREATININE (BEAKER) (test 0.57 mg/dL 0.57-1.25 ljhl=848) GLUCOSE RANDOM (BEAKER) 92 mg/dL 70-105 (test swrc=171) CALCIUM (BEAKER) (test 9.2 mg/dL 8.4-10.2 mqhi=662) EGFR (BEAKER) (test 127 mL/min/1.73 sq m ESTIMATED GFR IS NOT fvjo=9201) ACCURATE CREATININE CLEARANCE IN PREDICTING GLOMERULAR FILTRATION RATE. ESTIMATED GFR IS NOT APPLICABLE FOR DIALYSIS PATIENTS. CREATINE KINASE (CK)2017-05-15 03:15:00 Test Item Value Reference Range Comments CREATINE KINASE TOTAL (BEAKER) (test abhm=551) 200 U/L 29-200 LACTIC ACID, VENOUS, WHOLE [id number] 03:09:00 Test Item Value Reference Range Comments LACTATE BLOOD VENOUS (2) (BEAKER) (test 0.6 mmol/L 0.5-2.2 evnc=2735) Effective 10/17/2015: Units/Reference Range ChangeNew: 0.5-2.2 mmol/L Previous: 5 -20 mg/dLPROTHROMBIN TIME/[id number] 03:07:00 Test Item Value Reference Range Comments PROTIME (BEAKER) (test wdwd=038) 14.5 seconds 11.7-14.7 INR (BEAKER) (test yjoq=933) 1.1 <=5.9 RECOMMENDED COUMADIN/WARFARIN INR THERAPY RANGESSTANDARD DOSE: 2.0 - 3.0 Includes: PROPHYLAXIS forvenous thrombosis, systemic embolization; TREATMENT for venous thrombosis and/or pulmonary embolus.HIGH RISK: Target INR is 2.5-3.5 for patients with mechanical heart valves.CBC W/PLT COUNT & AUTO [id number] 03:00:00 Test Item Value Reference Range Comments WHITE BLOOD CELL COUNT (BEAKER) (test botg=860) 21.6 K/ L 3.5-10.5 RED BLOOD CELL COUNT (BEAKER) (test kdtu=755) 4.04 M/ L 3.93-5.22 HEMOGLOBIN (BEAKER) (test mekb=533) 9.3 GM/DL 11.2-15.7 HEMATOCRIT (BEAKER) (test yyld=173) 30.1 % 34.1-44.9 MEAN CORPUSCULAR VOLUME (BEAKER) (test ymog=069) 74.5 fL 79.4-94.8 MEAN CORPUSCULAR HEMOGLOBIN (BEAKER) (test 23.0 pg 25.6-32.2 ricu=948) MEAN CORPUSCULAR HEMOGLOBIN CONC (BEAKER) (test 30.9 GM/DL 32.2-35.5 iqja=002) RED CELL DISTRIBUTION WIDTH (BEAKER) (test 19.3 % 11.7-14.4 kakv=423) PLATELET COUNT (BEAKER) (test vfyc=499) 250 K/CU MM 150-450 MEAN PLATELET VOLUME (BEAKER) (test ycqj=771) 10.3 fL 9.4-12.3 NUCLEATED RED BLOOD CELLS (BEAKER) (test 0 /100 WBC 0-0 bcik=890) NEUTROPHILS RELATIVE PERCENT (BEAKER) (test 83 % ribg=150) LYMPHOCYTES RELATIVE PERCENT (BEAKER) (test 9 % sehn=279) MONOCYTES RELATIVE PERCENT (BEAKER) (test 8 % xewp=121) EOSINOPHILS RELATIVE PERCENT (BEAKER) (test 0 % dhom=279) BASOPHILS RELATIVE PERCENT (BEAKER) (test 0 % cpak=891) NEUTROPHILS ABSOLUTE COUNT (BEAKER) (test 17.85 K/ L 1.56-6.13 kaoy=534) LYMPHOCYTES ABSOLUTE COUNT (BEAKER) (test 1.98 K/ L 1.18-3.74 snjk=245) MONOCYTES ABSOLUTE COUNT (BEAKER) (test 1.62 K/ L 0.24-0.36 szwc=132) EOSINOPHILS ABSOLUTE COUNT (BEAKER) (test 0.01 K/ L 0.04-0.36 idab=402) BASOPHILS ABSOLUTE COUNT (BEAKER) (test 0.04 K/ L 0.01-0.08 roaz=984) IMMATURE GRANULOCYTES-RELATIVE PERCENT (BEAKER) 1 % 0-1 (test alys=8881) RAD, CHEST, 1 VIEW, NON [id number] 01:06:00Reason for exam:->possible infectionShould this be performed [...] MDReport Verified Date/Time: 2016 01:06:06 Reading Location: [address] Reading Room
--- OUTSIDE RECORDS SUMMARY | 2018-04-08 16:38 | XMS REPORT | Clinical Summary ---
:1990 Author Organization [facility] Address [address] [place] [address] Phone Care Team Providers Name Role Phone Unavailable Primary Care Provider Unavailable Allergies No Known Allergies Current Medications Prescription Sig. Disp. Refills Start Date End Date Status levETIRAcetam Take 1 tablet 60 tablet 2 05/19/2017 Active (KEPPRA) 1000 MG (1,000 mg tablet total) by mouth 2 (two) times daily. vitamin Take 1 tablet 90 tablet 3 05/20/2017 Active w/kdjurht-uhgy-lyna by mouth te ( PLUS) daily. 27 [...] Type Specialty Care Team Description 05/14/2017 - [facility] General Internal Stew Soriano Acute 05/19/2017 Encounter Medicine MD Do encephalopathy;Less Pritesh, Dipaben than 8 weeks MD Hemant gestation of Maria Elena Clark, ;Leukocyto sis, unspecified Lina Becker, type;Seizure MD disorder (HCC);Transient alteration of awareness;Hypokalem ia after 04/07/2017 Social History Tobacco Use Types Packs/Day Years Used Date Never Smoker Alcohol Use Drinks/Week oz/Week Comments No Sex Assigned at Date Recorded Not on file Last Filed Vital Signs Vital Sign Reading Time Taken Blood Pressure 112/71 05/19/2017 7:39 AM COST ESTIMATOR Pulse 84 05/19/2017 7:39 AM COST ESTIMATOR Temperature 36.7 C (98 F) 05/19/2017 7:39 AM COST ESTIMATOR Respiratory Rate 20 05/19/2017 7:39 AM COST ESTIMATOR Oxygen Saturation 97% 05/19/2017 7:39 AM COST ESTIMATOR Inhaled Oxygen Concentration - - Weight 63.5 kg (139 lb 14.4 oz) 05/19/2017 6:00 AM COST ESTIMATOR Height 157.5 cm (5' 2") 05/16/2017 11:58 AM COST ESTIMATOR Body Mass Index 25.59 05/19/2017 6:00 AM COST ESTIMATOR Plan of Treatment Not on file Results [...] Performing Laboratory Blood - Central Venous Line [address] [address] CBC with platelet count + automated diff (05/18/2017 2:33 PM)Only the most recent of2 resultswithin the time period is included. Specimen Performing Laboratory Blood Narrative The following orders were created for panel order CBC with platelet count + automated diff. Procedure Abnormality Status --------- ------ CBC with platelet count ...[[id number]]AbnormalFinal result Please view results for these tests on the individual orders. hCG, quantitative, (05/18/2017 2:32 PM) Component Value Ref Range hCG Quant 44493 (H) 0 - 10 mIU/mL Specimen Performing Laboratory Blood - Central Venous Line [address] [address] Narrative Non- Females: <10 mIU/mL Females: Gestation AgeReference Range(mIU/mL) 0.2-1 Week5-50 1-2 Weqmt39-047 2-3 Weeks 100-5,000 3-4 Weeks 500-10,000 4-5 [...] Performing Laboratory Blood - Central Venous Line [address] first trimester (05/17/2017 5:30 AM) Specimen Performing Laboratory IDbyME Narrative FINAL REPORT ULTRASOUND FIRST TRIMESTER, ULTRASOUND [...] 1 day. An embryonic pole is evident. [place]-rump length measures 0.63 cm, correlating with estimated [...] MD Report Verified Date/Time:05/17/2017 07:52:37 Reading Location: [facility] B1 C013X Ortho Consult Reading Room Procedure Note Interface, External Ris In - 06/02/2017 2:31 AM COST ESTIMATOR FINAL REPORT ULTRASOUND FIRST TRIMESTER, ULTRASOUND TRANSVAGINAL, [...] 1 day. An embryonic pole is evident. [place]-rump length measures 0.63 cm, correlating with estimated [...] Report Verified Date/Time: 05/17/2017 07:52:37 Reading Location: [facility] B1 C013X Ortho Consult Reading Room Screen, urine (05/17/2017 4:38 AM) Component Value Ref Range Preg Test, Ur Positive Specimen Performing Laboratory Urine - Urine, Clean Catch [address] [address] MR brain without IV contrast (05/15/2017 7:10 [...] MD Report Verified Date/Time:05/15/2017 18:54:11 Reading Location: [facility] Reading Room Procedure Note Interface, External Ris In - 05/15/2017 7:11 PM COST ESTIMATOR FINAL REPORT MRI brain without contrast 05/15/2017 [...] Report Verified Date/Time: 05/15/2017 18:54:11 Reading Location: [facility] Reading Room AWAKE AND DROWSY (05/15/2017 10:56 AM) Specimen Performing Laboratory RIS Narrative DATE OF TEST: 05/15/2017 DATE OF REPORT 05/15/2017 ACC: [id number] EE Start time: 1034 Stop time: 1054 ICD-10: R56.9 CPT Code: 44870 HISTORY: 26 y/o woman with epilepsy found [...] External Ris In - 05/15/2017 12:08 PM COST ESTIMATOR DATE OF TEST: 05/15/2017 DATE OF REPORT 05/15/2017 ACC: [id number] EE Start time: 1034 Stop time: 1054 ICD-10: R56.9 CPT Code: 51300 HISTORY: 26 y/o woman with epilepsy found [...] Specimen Performing Laboratory Blood - Arm, [place] [address] Procalcitonin (05/15/2017 2:43 AM) Component Value Ref Range Procalcitonin 0.17 (H) <0.05 ng/mL Specimen [place] [address] Narrative SEPSIS RISK (ng/mL) Low:0.05-0.50 Intermediate: 0.51-2.00 High: >=2.01 Lactic acid, venous, whole blood (05/15/2017 2:43 AM) Component Value Ref Range Lactate, Venous 0.6 0.5 - 2.2 mmol/L Specimen [place] [address] Narrative Effective 10/17/2015: Units/Reference Range Change New: 0.5-2.2 mmol/LPrevious: 5-20 mg/dL Prothrombin time/INR (05/15/2017 2:43 AM) Component Value Ref Range Protime 14.5 11.7 - 14.7 seconds INR 1.1 <=5.9 Specimen Performing Laboratory Blood [facility] [address] Narrative RECOMMENDED COUMADIN/WARFARIN INR THERAPY RANGES STANDARD DOSE: 2.0 - 3.0 Includes: PROPHYLAXIS for venous thrombosis, systemic embolization; TREATMENT for venous thrombosis and/or pulmonary embolus. HIGH RISK: Target INR is 2.5-3.5 for patients with mechanical heart valves. Phosphorus (05/15/2017 2:43 AM) Component Value Ref Range Phosphorus 3.1 2.3 - 4.7 mg/dL Specimen Performing Laboratory Blood [address] [address] Magnesium (05/15/2017 2:43 AM) Component Value Ref Range Magnesium 1.9 1.6 - 2.6 mg/dL Specimen Performing Laboratory [address] [address] Creatine Kinase (CK) (05/15/2017 2:43 AM) Component Value Ref Range Total CK 200 29 - 200 U/L Specimen Performing Laboratory [address] [address] Basic Metabolic Panel (05/15/2017 2:43 AM) Component [...] FOR DIALYSIS PATIENTS. Specimen Performing Laboratory Blood [address] [address] XR chest 1 view portable / bedside [...] MD Report Verified Date/Time:05/15/2017 01:06:06 Reading Location: [address] Reading Room Procedure Note Interface, External Ris In - 05/15/2017 1:30 AM COST ESTIMATOR FINAL REPORT History: Infection. Comparison: None. Findings: A single view of the chest is submitted. The cardiomediastinal contours are unremarkable. There is no focal consolidation, pneumothorax, large pleural effusion or evidence of overt pulmonary edema. There is no acute bony abnormality. Impression: No acute abnormality. Signed: Shabnam Dailey MD Report Verified Date/Time: 05/15/2017 01:06:06 Reading Location: [address] Reading Room after 04/07/2017
[2018-04-08] MEDS ORDERED: NA CHLORIDE 0.9% 1,000 ML ONE (17:00)
[2018-04-08] MEDS ORDERED: levETIRAcetam 1,000 MG in NA CHLORIDE 0.9% 100 ML IV ONE (17:00)
[2018-04-08 17:05] LABS: Absolute Lymphocytes (CBC) 1.1 K/uL (0.7-4.9); Absolute Monocytes 0.4 K/uL (0.1-1.3); Absolute Neutrophil 3.9 K/uL (1.8-8.0); Basophils % 1.2 % (0-1.3); Eosinophils % 1.1 % (0-4.4); Hematocrit 36.8 % (36.0-45.0); Lymphocytes % 19.2 % (15.3-44.8); MCV 87.5 fL (80-100); MPV 8.3 fL (7.6-11.3)
--- NOTE | 2018-04-08 17:15 | RAD REPORT ---
EXAM DESCRIPTION: CT - Head Brain Wo Cont - 04/08/2018 5:09 pm CLINICAL HISTORY: SEIZURE COMPARISON: Head Brain Wo Cont dated 04/02/2016; Head Brain Wo Cont dated 03/13/2016 TECHNIQUE: All CT scans are performed using dose optimization technique as appropriate and may inclu de automated exposure control or mA/KV adjustment according to patient size. FINDINGS: No intracranial hemorrhage, hydrocephalus or extra-axial fluid collection.No areas of brai n edema or evidence of midline shift. The paranasal sinuses and mastoids are clear. The calvarium is intact. IMPRESSION: No acute intracranial abnormality.
[2018-04-08 17:17] LABS: BUN Blood Urea Nitrogen 7 mg/dL (7-18); Bicarbonate 25 mmol/L (21-32); Glucose Level 101 mg/dL (74-106); Potassium 3.8 mmol/L (3.5-5.1); Sodium Level 140 mmol/L (136-145)
--- NOTE | 2018-04-08 17:58 | ER ---
Nurse's Notes [facility] Name: Heather Hope Age: 27 yrs Sex: Female : 1990 Arrival Date: 04/08/2018 Time: 16:40 Bed 4 Private MD: None, None Diagnosis: Epilepsy and recurrent seizures Presentation: 04/08 16:42 Presenting complaint: EMS states: pt was seizing per resident who say patient outside sg of apartment building, EMS reports one violent seizure in route to the facility, pt has hx of seizures, is able to open eyes and follow basic commands at this time, pt aa\T\ox2 to self and situation. Transition of care: patient was not received from another setting of care. Onset of symptoms was April 08, 2018. Risk Assessment: Do you want to hurt yourself or someone else? Patient reports no desire to harm self or others. Initial Sepsis Screen: Does the patient meet any 2 criteria? No. Patient's initial sepsis screen is negative. Does the patient have a suspected source of infection? No. Patient's initial sepsis screen is negative. Care prior to arrival: IV initiated. 20 GA, in the left antecubital area. 16:42 Method Of Arrival: EMS: [facility] sg 16:42 Acuity: DARLYN 3 sg SOLAR SALES CONSULTANT: 16:44 pt reports unsure at this time sg Historical: - Allergies: 16:45 No Known Allergies; sg - Home Meds: 16:45 Keppra Oral [Active]; sg - PMHx: 16:45 Seizures; sg - Immunization history:: Adult Immunizations up to date. - Social history:: Smoking status: unknown. - Ebola Screening: : Patient negative for fever greater than or equal to 101.5 degrees Fahrenheit, and additional compatible Ebola Virus Disease symptoms Patient denies exposure to infectious person Patient denies travel to an Ebola-affected area in the 21 days before illness onset No symptoms or risks identified at this time. - Family history:: not pertinent. - Hospitalizations: : No recent hospitalization is reported. Screenin:50 Abuse screen: no s/s of abuse noted at this time, pt will not answer screening sg questions. Nutritional screening: No deficits noted. Tuberculosis screening: Never had TB. Fall Risk None identified. Assessment: 16:47 General: Behavior is fussy, quiet, uncooperative. Pain: Denies pain. Neuro: Level of sg Consciousness is alert, obeys commands, Oriented to person, situation, Tier Lift Operator are equal bilaterally Moves all extremities. Speech is normal, with teeth gritted during speech. Facial symmetry appears normal, Pupils are PERRLA. Cardiovascular: Capillary refill is brisk in bilateral fingers Patient's skin is warm and dry. Respiratory: Airway is patent Respiratory effort is even, unlabored, Respiratory pattern is regular, symmetrical, Breath sounds are clear. GI: No deficits noted. Abdomen is flat, non-distended, Bowel sounds present X 4 quads. : No deficits noted. EENT: No deficits noted. Derm: Skin is intact, is healthy with good turgor, Skin is mottled, pale, Skin temperature is warm. Musculoskeletal: Circulation, motion, and sensation intact. Range of motion: intact in all extremities. Vital Signs: 16:44 BP 133 / 97; Pulse 90; Resp 18; Temp 98.6; Pulse Ox 100% on R/A; Weight 70.31 kg; Pain sg 0/10; ED Course: 16:40 Patient arrived in ED. sg 16:40 Moi Avalos MD is Attending Physician. rn 16:41 Bart Maguire, CLAUDIA is Primary Nurse. sg 16:44 Triage completed. sg 16:44 Arm band placed on. sg 16:45 Initial lab(s) drawn, by ED staff, sent to lab. dh3 16:46 None, None is Private Physician. sg 16:46 No provider procedures requiring assistance completed. Initial lab(s) drawn, by ED sg staff, sent to lab. Maintain EMS IV. Dressing intact. Site clean \T\ dry. Gauge \T\ site: 20 G LAC. IV is patent, is intact, with good blood return. 16:47 Patient has correct armband on for positive identification. Bed in low position. Call sg light in reach. Side rails up X2. Seizure precautions initiated. child monitor on. Pulse ox on. NIBP on. Warm blanket given. Head of bed elevated. 16:55 Radiology exam delayed due to IV insertion attempt and/or patient not having vm2 appropriate IV at this time. 16:55 Inserted saline lock: 24 gauge in right hand, using aseptic technique. Flushed right sv hand with 5 ml normal saline. 16:57 EKG done, by drafting technician. reviewed by Moi Avalos MD. 3 17:[address] via stretcher. sg 17:10 CT Head Brain wo Cont In Process Unspecified. EDMS 17:18 CT completed. Patient tolerated procedure well. Patient moved back from CT. vm2 18:00 IV discontinued, intact, bleeding controlled, No redness/swelling at site. Pressure sg dressing applied, x2. Administered Medications: 17:30 Drug: NS 0.9% 1000 ml Route: IV; Rate: 1000 ml; Site: right hand; sg 17:30 Drug: Keppra 1000 mg Route: IV; Rate: calculated rate; Site: right hand; Point of Care Testing: Blood Glucose: 16:50 Blood Glucose: 114 mg/dL; 3 Ranges: Outcome: 17:57 Discharge ordered by . rn 18:00 Discharged to home via wheelchair, with family. sg 18:00 Condition: good 18:00 Discharge instructions given to patient, family, Instructed on discharge instructions, follow up and referral plans. safety practices, Demonstrated understanding of instructions, follow-up care. 18:08 Patient left the ED. hb Signatures: Dispatcher [employer] EDMarissa Azul RN RN sv Gay, Steven, RN RN sg Nieto, Roman, MD MD rn Baxter, Heather, RN RN Kelin Mendoza 2 Lissett Reyes 3 Aminah Nelson 3 Corrections: (The following items were deleted from the chart) 16:55 16:[address] vm2 vm2
--- NOTE | 2018-04-08 17:58 | EDPHYS ---
Physician Documentation [facility] Name: Heather Hope Age: 27 yrs Sex: Female : 1990 Arrival Date: 04/08/2018 Time: 16:40 Bed 4 Private MD: None, None ED Physician Moi Avalos HPI: 04/08 16:45 This 27 yrs old Female presents to ER via EMS with complaints of seizure. rn 16:45 The patient presents with a history of multiple seizures, a total of 2. Seizure onset: rn today. Associated injury: The patient did not suffer any apparent associated injury. Current symptoms: confusion. The patient has experienced similar episodes in the past. The patient has not recently seen a physician. EMS reports seizures, possible 2-3, at home, witnessed, patient now post-ictal, EMS did not have to give anything because no longer seizing, patient with it enough to report she takes seizure meds but cannot recall name of medication. Denies drug use.. 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 - Social history:: Smoking status: unknown. - Ebola Screening: : Patient negative for fever greater than or equal to 101.5 degrees Fahrenheit, and additional compatible Ebola Virus Disease symptoms Patient denies exposure to infectious person Patient denies travel to an Ebola-affected area in the 21 days before illness onset No symptoms or risks identified at this time. - Family history:: not pertinent. - Hospitalizations: : No recent hospitalization is reported. ROS: 16:45 Constitutional: Negative for fever, chills, and weight loss, Eyes: Negative for injury, rn pain, redness, and discharge, Neck: Negative for injury, pain, and swelling, Cardiovascular: Negative for chest pain, palpitations, and edema, Respiratory: Negative for shortness of breath, cough, wheezing, and pleuritic chest pain, Abdomen/GI: Negative for abdominal pain, nausea, vomiting, diarrhea, and constipation, MS/Extremity: Negative for injury and deformity, Skin: Negative for injury, rash, and discoloration, Neuro: Negative for weakness, numbness, tingling, + headache Exam: 16:45 Constitutional: This is a well developed, well nourished patient who is awake, rn post-ictal, answers some questions and follows come commands. Head/Face: Normocephalic, atraumatic. Eyes: Pupils equal round and reactive to light, extra-ocular motions intact. Lids and lashes normal. Conjunctiva and sclera are non-icteric and not injected. Cornea within normal limits. Periorbital areas with no swelling, redness, or edema. Forced upward eye deviation when checking pupil size, corrects when directed to do so. ENT: MMM Neck: Trachea midline, no thyromegaly or masses palpated, and no cervical lymphadenopathy. Supple, full range of motion without nuchal rigidity, or vertebral point tenderness. No Meningismus. Cardiovascular: Regular rate and rhythm with a normal S1 and S2. No gallops, murmurs, or rubs. Normal PMI, no JVD. No pulse deficits. Respiratory: Lungs have equal breath sounds bilaterally, clear to auscultation and percussion. No rales, rhonchi or wheezes noted. No increased work of breathing, no retractions or nasal flaring. Abdomen/GI: Soft, non-tender, with normal bowel sounds. No distension or tympany. No guarding or rebound. No evidence of tenderness throughout. MS/ Extremity: Pulses equal, no cyanosis. Neurovascular intact. Full, normal range of motion. Equal circumference. Neuro: Awake, post-ictal, Moveall4 extremities, answers some questions and follows some commands, no nystagmus. Vital Signs: 16:44 BP 133 / 97; Pulse 90; Resp 18; Temp 98.6; Pulse Ox 100% on R/A; Weight 70.31 kg; Pain sg 0/10; MDM: 16:40 Patient medically screened. rn 17:55 Differential diagnosis: seizure. Data reviewed: vital signs, nurses notes, lab test rn result(s), EKG, radiologic studies, CT scan, and as a result, I will discharge patient. Counseling: I had a detailed discussion with the patient and/or guardian regarding: the historical points, exam findings, and any diagnostic results supporting the discharge/admit diagnosis, lab results, radiology results, the need for outpatient follow up, to return to the emergency department if symptoms worsen or persist or if there are any questions or concerns that arise at home. Response to treatment: the patient's symptoms have markedly improved after treatment, the patient's condition has returned to base line, the patient is now symptom free, and as a result, I will discharge patient. Special discussion: I discussed with the patient/guardian in detail that at this point there is no indication for admission to the hospital. It is understood, however, that if the symptoms persist or worsen the patient needs to return immediately for re-evaluation. Based on the history and exam findings, there is no indication for further emergent testing or inpatient evaluation. I discussed with the patient/guardian the need to see the neurologist for further evaluation of the symptoms. ED course: Padminiienroyce here and I spoke to her mom, apparently has seizures weekly, her neurologist has wanted to add 2nd agent, but they didn't accept, now back to baseline, still ahs not urinated, but boyfriend wants to take her home, states usually sleeps them off for a day or so. Knows return precautions, and patient has been having seizures since man year. Recommend f/u with Dr. German for reassessment. . 17:58 Refusal of service: The patient/guardian displays adequate decision making capability rn and despite a detailed discussion of alternatives, benefits, risks, and consequences refuses: urine studies. 04/08 16:42 Order name: CBC with Diff; Complete Time: 17:13 rn 04/08 16:42 Order name: Basic Metabolic Panel; Complete Time: 17:17 rn 04/08 16:44 Order name: Dilantin rn 04/08 16:51 Order name: Glucose, Ancillary Testing; Complete Time: 17:13 EDMS 04/08 16:42 Order name: CT Head Brain wo Cont; Complete Time: 17:17 rn 04/08 16:42 Order name: EKG; Complete Time: 16:43 rn 04/08 16:42 Order name: EKG - Nurse/Tech; Complete Time: 17:39 rn 04/08 16:42 Order name: Glucose Level; Complete Time: 16:51 rn Administered Medications: 17:30 Drug: NS 0.9% 1000 ml Route: IV; Rate: 1000 ml; Site: right hand; sg 17:30 Drug: Keppra 1000 mg Route: IV; Rate: calculated rate; Site: right hand; sg Point of Care Testing: Blood Glucose: 16:50 Blood Glucose: 114 mg/dL; dh3 Ranges: Critical Glucose Levels:Adult <50 mg/dl or >400 mg/dl <40 mg/dl or >180 mg/dl Disposition: 04/08/18 17:57 Discharged to Home. Impression: Epilepsy and recurrent seizures. - Condition is Stable. - Discharge Instructions: Seizure, Adult. - Medication Reconciliation Form, Thank You Letter, Antibiotic Education, Prescription Opioid Use form. - Follow up: Private Physician; When: As needed; Reason: Recheck today's complaints, Re-evaluation by your physician. - Problem is new. - Symptoms have improved. Signatures: Dispatcher [employer] EDMS Bart Maguire RN RN Moi Avalos MD MD rn Baxter, Heather, RN RN Corrections: (The following items were deleted from the chart) 18:08 17:57 04/08/2018 17:57 Discharged to Home. Impression: Epilepsy and recurrent seizures. hb Condition is Stable. Forms are Medication Reconciliation Form, Thank You Letter, Antibiotic Education, Prescription Opioid Use. Follow up: Private Physician; When: As needed; Reason: Recheck today's complaints, Re-evaluation by your physician. Problem is new. Symptoms have improved. rn
[2018-04-08 18:15] VITALS: BP 133/97; TEMP 98.6; O2SAT 100
--- NOTE | 2018-04-09 07:30 | EKG ---
Test Date: 2018-04-08 Test Time: 16:55:30 Product Analyst: ARCADIO MEASUREMENT RESULTS: Intervals: Rate: 96 IL: 142 QRSD: 84 QT: 342 QTc: 432 [place]: P: 48 IL: 142 QRS: 23 T: 34 INTERPRETIVE STATEMENTS: Normal sinus rhythm Cannot rule out Anterior infarct, age undetermined Abnormal ECG Compared to ECG 05/14/2017 15:03:05 Myocardial infarct finding now present Electronically Signed On 04-09-18 07:27:45 CDT by Merrill Guzman
== END 2018-04-08 18:08 | disposition home or self-care (01) ==
LOC: ER 16:36
DX: G40.802 Other epilepsy, not intractable, without status epilepticus (principal)
CPT/HCPCS: 36415; 70450; 80048; 80185; 82962; 85025; 93005; 96374; 99285; J1953; J7030

== ENCOUNTER 2018-05-26 14:21 | Emergency (ER) | payer OTHER ==
--- OUTSIDE RECORDS SUMMARY | 2018-05-26 14:25 | XMS REPORT | Clinical Summary ---
:1990 Author Organization [facility] Address [address] [place] [address] Care Team Providers Name Role Phone Unavailable Primary Care Provider Unavailable Allergies No Known Allergies Medications Medication Sig Dispensed Refills Start Date End Date Status levETIRAcetam Take 1 tablet 60 tablet 2 05/19/2017 Active (KEPPRA) 1000 MG (1,000 mg tablet total) by mouth 2 (two) times daily. vitamin Take 1 tablet 90 tablet 3 05/20/2017 Active w/muhxobx-uzzc-jvfjdf by mouth daily. ( PLUS) 27 mg iron- 1 mg Tab escitalopram oxalate Take 1 tablet 30 tablet 2 05/20/2017 08/18/2017 (LEXAPRO) 5 MG tablet (5 mg total) by mouth daily for 90 days. folic acid (FOLVITE) Take 2 tablets 180 tablet 3 05/19/2017 05/19/2018 1 MG tablet (2 mg total) by mouth 2 (two) times daily. Active Problems Problem Noted Date Hypokalemia 05/18/2017 Acute encephalopathy 05/14/2017 Seizure disorder 05/14/2017 Leukocytosis 05/14/2017 Less than 8 weeks gestation of 05/14/2017 Social History Tobacco Use Types Packs/Day Years Used Date Never Smoker Alcohol Use Drinks/Week oz/Week Comments No Sex Assigned at Date Recorded Not on file Job Start Date Occupation Industry Not on file Not on file Not on file Travel History Travel Start Travel End No recent travel history available. Last Filed Vital Signs Not on file Plan of Treatment Not on file Results Not on fileafter 05/25/2017 Insurance Payer Benefit Plan / Group Subscriber ID Type Phone Address MEDICAID [place]ICAID [place] xxxxxxxxx Medicaid Advance Directives For more information, please contact:[address] [phone] Code Status Date Activated Date Inactivated Comments Full Code 05/14/2017 10:10 PM 05/19/2017 2:55 PM This code status was determined by: Patient
--- OUTSIDE RECORDS SUMMARY | 2018-05-26 14:25 | XMS REPORT ---
:1990 [facility] Address [address] [place] [address] Care Team Providers Name Role Phone MILES RODAS Unavailable Unavailable Problems This patient has no known problems. Allergies, Adverse Reactions, Alerts This patient has no known allergies or adverse reactions. Medications This patient has no known medications. Results Test Description Test Time Test Comments Text Results Atomic Results Result Comments BLOOD CULTURE 2017-05-20 10:00:00 Test Item Value Reference Range Comments CULTURE (BEAKER) (test xsxl=5659) No growth in 5 days HCG, QUANTITATIVE, [id number] 15:37:00 Test Item Value Reference Range Comments GONADOTROPIN, CHORIONIC (HCG) QUANT (BEAKER) 51417 mIU/mL 0-10 (test ayok=210) Non- Females: <10 mIU/mL Females: Gestation Age Reference Range(mIU/mL) 0.2-1 Week 5-50 1-2 Weeks 50-500 2-3 Weeks 100-5,000 3-4Weeks 500-10,000 4 -5 Weeks 1,000-50,000 5-6 Weeks 10,000-100,000 6-8 Weeks 15,000-200,000 2-3 Months 10,000-100,000COMPREHENSIVE METABOLIC [id number] 15:10:00 Test Item Value Reference Range Comments TOTAL PROTEIN (BEAKER) 7.0 gm/dL 6.0-8.3 (test qzsl=646) ALBUMIN (BEAKER) (test 3.9 g/dL 3.5-5.0 fjks=7396) ALKALINE PHOSPHATASE 50 U/L 40-150 (BEAKER) (test gzju=046) BILIRUBIN TOTAL (BEAKER) 0.5 mg/dL 0.2-1.2 (test cuef=619) SODIUM (BEAKER) (test 140 meq/L 136-145 dbmj=378) POTASSIUM (BEAKER) (test 3.4 meq/L 3.5-5.1 qodo=690) CHLORIDE (BEAKER) (test 107 meq/L 98-107 ziua=663) CO2 (BEAKER) (test 21 meq/L 22-29 qdvl=952) BLOOD UREA NITROGEN 6 mg/dL 7-21 (BEAKER) (test pxgm=028) CREATININE (BEAKER) (test 0.54 mg/dL 0.57-1.25 jdmz=134) GLUCOSE RANDOM (BEAKER) 76 mg/dL 70-105 (test mrub=005) CALCIUM (BEAKER) (test 9.2 mg/dL 8.4-10.2 hqxb=679) AST (SGOT) (BEAKER) (test 57 U/L 5-34 kupk=532) ALT (SGPT) (BEAKER) (test 84 U/L 6-55 tlys=571) EGFR (BEAKER) (test 135 mL/min/1.73 sq ESTIMATED GFR IS NOT xryk=0857) m ACCURATE CREATININE CLEARANCE IN PREDICTING GLOMERULAR FILTRATION RATE. ESTIMATED GFR IS NOT APPLICABLE FOR DIALYSIS PATIENTS. CBC W/PLT COUNT & AUTO [id number] 14:53:00 Test Item Value Reference Range Comments WHITE BLOOD CELL COUNT (BEAKER) (test mrmf=661) 9.7 K/ L 3.5-10.5 RED BLOOD CELL COUNT (BEAKER) (test ctps=709) 4.31 M/ L 3.93-5.22 HEMOGLOBIN (BEAKER) (test ljfp=501) 10.0 GM/DL 11.2-15.7 HEMATOCRIT (BEAKER) (test jbme=848) 31.9 % 34.1-44.9 MEAN CORPUSCULAR VOLUME (BEAKER) (test widb=171) 74.0 fL 79.4-94.8 MEAN CORPUSCULAR HEMOGLOBIN (BEAKER) (test 23.2 pg 25.6-32.2 kthh=730) MEAN CORPUSCULAR HEMOGLOBIN CONC (BEAKER) (test 31.3 GM/DL 32.2-35.5 fdge=435) RED CELL DISTRIBUTION WIDTH (BEAKER) (test 19.0 % 11.7-14.4 tsjf=886) PLATELET COUNT (BEAKER) (test cppu=469) 259 K/CU MM 150-450 MEAN PLATELET VOLUME (BEAKER) (test xutw=675) 9.9 fL 9.4-12.3 NUCLEATED RED BLOOD CELLS (BEAKER) (test 0 /100 WBC 0-0 wgww=568) NEUTROPHILS RELATIVE PERCENT (BEAKER) (test 70 % dqlc=904) LYMPHOCYTES RELATIVE PERCENT (BEAKER) (test 21 % qvmw=133) MONOCYTES RELATIVE PERCENT (BEAKER) (test 8 % vuyb=899) EOSINOPHILS RELATIVE PERCENT (BEAKER) (test 1 % ntnb=327) BASOPHILS RELATIVE PERCENT (BEAKER) (test 1 % vpcp=657) NEUTROPHILS ABSOLUTE COUNT (BEAKER) (test 6.75 K/ L 1.56-6.13 ckqe=035) LYMPHOCYTES ABSOLUTE COUNT (BEAKER) (test 2.01 K/ L 1.18-3.74 phst=356) MONOCYTES ABSOLUTE COUNT (BEAKER) (test 0.75 K/ L 0.24-0.36 odwc=640) EOSINOPHILS ABSOLUTE COUNT (BEAKER) (test 0.07 K/ L 0.04-0.36 vurl=338) BASOPHILS ABSOLUTE COUNT (BEAKER) (test 0.08 K/ L 0.01-0.08 vrwv=965) IMMATURE GRANULOCYTES-RELATIVE PERCENT (BEAKER) 0 % 0-1 (test lqxv=0093) U/S, , FIRST [id number] 07:52:00Reason for exam:-> Reason for exam:->please include [...] 1 day. An embryonic pole is evident. [place]-rump length measures 0.63 cm, correlating with estimated [...] Garrido Verified Date/Time: 05/17/2017 07:52:37 Reading Location: [address] Ortho Consult Reading Room PREGNANCY SCREEN, [id number] 05:28:00 Test Item Value Reference Range Comments TEST URINE (BEAKER) (test jznq=160) Positive MR, BRAIN, WITHOUT [id number] 18:54:00Reason for exam:->Stroke evaluationFINAL REPORT MRI brain [...] Verified Date/Time: 05/15/2017 18 :54:11 Reading Location: [facility] Radiology Reading Room EEG AWAKE AND [id number] 12:08:00Reason for exam:->? nonconvulsive statusDATE OF TEST: 2016DATE OF REPORT 05/15/2017 ACC: [id number] EE Start time: 1034 Stop time: 1054 ICD-10: R56.9CPT Code: 94660EIUOVIR: 26 y/o woman with epilepsy found down [...] recordings.Marika Smith M.D.Neurophysiology FellowNoemí Harper M.D.Neurophysiology Attending [id number] 04:27:00 Test Item Value Reference Range Comments PROCALCITONIN (BEAKER) (test feuq=5443) 0.17 ng/mL <0.05 SEPSIS RISK (ng/mL)Low: 0.05-0.50Intermediate: 0.51-2.00High: & gt;=[id number] 03:15:00 Test Item Value Reference Range Comments PHOSPHORUS (BEAKER) (test vyud=132) 3.1 mg/dL 2.3-4.7 [id number] 03:15:00 Test Item Value Reference Range Comments MAGNESIUM (BEAKER) (test uhvt=314) 1.9 mg/dL 1.6-2.6 BASIC METABOLIC [id number] 03:15:00 Test Item Value Reference Range Comments SODIUM (BEAKER) (test 139 meq/L 136-145 fuaj=636) POTASSIUM (BEAKER) (test 3.7 meq/L 3.5-5.1 kfdg=408) CHLORIDE (BEAKER) (test 110 meq/L 98-107 njtg=090) CO2 (BEAKER) (test 19 meq/L 22-29 pigd=295) BLOOD UREA NITROGEN 8 mg/dL 7-21 (BEAKER) (test cwyu=106) CREATININE (BEAKER) (test 0.57 mg/dL 0.57-1.25 gpkb=816) GLUCOSE RANDOM (BEAKER) 92 mg/dL 70-105 (test pqoz=580) CALCIUM (BEAKER) (test 9.2 mg/dL 8.4-10.2 vagx=470) EGFR (BEAKER) (test 127 mL/min/1.73 sq m ESTIMATED GFR IS NOT pnlf=6683) ACCURATE CREATININE CLEARANCE IN PREDICTING GLOMERULAR FILTRATION RATE. ESTIMATED GFR IS NOT APPLICABLE FOR DIALYSIS PATIENTS. CREATINE KINASE (CK)2017-05-15 03:15:00 Test Item Value Reference Range Comments CREATINE KINASE TOTAL (BEAKER) (test frns=395) 200 U/L 29-200 LACTIC ACID, VENOUS, WHOLE [id number] 03:09:00 Test Item Value Reference Range Comments LACTATE BLOOD VENOUS (2) (BEAKER) (test 0.6 mmol/L 0.5-2.2 eumw=0977) Effective 10/17/2015: Units/Reference Range ChangeNew: 0.5-2.2 mmol/L Previous: 5 -20 mg/dLPROTHROMBIN [id number] 03:07:00 Test Item Value Reference Range Comments PROTIME (BEAKER) (test bhuy=274) 14.5 seconds 11.7-14.7 INR (BEAKER) (test yegj=257) 1.1 <=5.9 RECOMMENDED COUMADIN/WARFARIN INR THERAPY RANGESSTANDARD DOSE: 2.0 - 3.0 Includes: PROPHYLAXIS forvenous thrombosis, systemic embolization; TREATMENT for venous thrombosis and/or pulmonary embolus.HIGH RISK: Target INR is 2.5-3.5 for patients with mechanical heart valves.CBC W/PLT COUNT & AUTO [id number] 03:00:00 Test Item Value Reference Range Comments WHITE BLOOD CELL COUNT (BEAKER) (test iwvs=897) 21.6 K/ L 3.5-10.5 RED BLOOD CELL COUNT (BEAKER) (test twvz=208) 4.04 M/ L 3.93-5.22 HEMOGLOBIN (BEAKER) (test ihir=802) 9.3 GM/DL 11.2-15.7 HEMATOCRIT (BEAKER) (test wwai=853) 30.1 % 34.1-44.9 MEAN CORPUSCULAR VOLUME (BEAKER) (test fcfh=970) 74.5 fL 79.4-94.8 MEAN CORPUSCULAR HEMOGLOBIN (BEAKER) (test 23.0 pg 25.6-32.2 qpjw=266) MEAN CORPUSCULAR HEMOGLOBIN CONC (BEAKER) (test 30.9 GM/DL 32.2-35.5 lqso=473) RED CELL DISTRIBUTION WIDTH (BEAKER) (test 19.3 % 11.7-14.4 vtce=107) PLATELET COUNT (BEAKER) (test dsqy=766) 250 K/CU MM 150-450 MEAN PLATELET VOLUME (BEAKER) (test fxvt=617) 10.3 fL 9.4-12.3 NUCLEATED RED BLOOD CELLS (BEAKER) (test 0 /100 WBC 0-0 wckw=956) NEUTROPHILS RELATIVE PERCENT (BEAKER) (test 83 % ybgq=637) LYMPHOCYTES RELATIVE PERCENT (BEAKER) (test 9 % jdaf=998) MONOCYTES RELATIVE PERCENT (BEAKER) (test 8 % klra=307) EOSINOPHILS RELATIVE PERCENT (BEAKER) (test 0 % xvmc=254) BASOPHILS RELATIVE PERCENT (BEAKER) (test 0 % hqqv=591) NEUTROPHILS ABSOLUTE COUNT (BEAKER) (test 17.85 K/ L 1.56-6.13 yoep=290) LYMPHOCYTES ABSOLUTE COUNT (BEAKER) (test 1.98 K/ L 1.18-3.74 tggc=257) MONOCYTES ABSOLUTE COUNT (BEAKER) (test 1.62 K/ L 0.24-0.36 bcyb=112) EOSINOPHILS ABSOLUTE COUNT (BEAKER) (test 0.01 K/ L 0.04-0.36 xnva=817) BASOPHILS ABSOLUTE COUNT (BEAKER) (test 0.04 K/ L 0.01-0.08 wzsm=301) IMMATURE GRANULOCYTES-RELATIVE PERCENT (BEAKER) 1 % 0-1 (test rxbq=5549) RAD, CHEST, 1 VIEW, NON [id number] 01:06:00Reason for exam:->possible infectionShould this be performed at the bedside?->YesFINAL REPORT History: Infection. Comparison: None. Findings: A single view of the chest is submitted. The cardiomediastinal contours are unremarkable. There is no focal consolidation, pneumothorax, large pleural effusion or evidence of overt pulmonary edema. There is no acute bony abnormality. Impression: No acute abnormality. Signed: Shabnam Daileyort Verified Date/Time: 2016 01:06:06 Reading Location: [address] Reading Room
--- NOTE | 2018-05-26 15:31 | RAD REPORT ---
EXAM DESCRIPTION: CT - Head Brain Wo Cont - 05/26/2018 3:21 pm CLINICAL HISTORY: Seizure;Trauma Seizure COMPARISON: Head Brain Wo Cont dated 04/08/2018; Head Brain Wo Cont dated 04/02/2016 TECHNIQUE: All CT scans are performed using dose optimization technique as appropriate and may inclu de automated exposure control or mA/KV adjustment according to patient size. FINDINGS: No intracranial hemorrhage, hydrocephalus or extra-axial fluid collection.No areas of brai n edema or evidence of midline shift. The paranasal sinuses and mastoids are clear. The calvarium is intact. IMPRESSION: No acute intracranial abnormality.
[2018-05-26 15:38] LABS: BUN Blood Urea Nitrogen 7 mg/dL (7-18); Bicarbonate 25 mmol/L (21-32); Glucose Level 81 mg/dL (74-106); Potassium 3.9 mmol/L (3.5-5.1); Sodium Level 138 mmol/L (136-145)
[2018-05-26] MEDS ORDERED: levETIRAcetam 1,000 MG in NA CHLORIDE 0.9% 100 ML IV ONE (16:00)
[2018-05-26] MEDS ORDERED: NA CHLORIDE 0.9% 1,000 ML ONE (16:02)
[2018-05-26 16:35] LABS: Absolute Lymphocytes (CBC) 1.3 K/uL (0.7-4.9); Absolute Monocytes 0.5 K/uL (0.1-1.3); Absolute Neutrophil 6.9 K/uL (1.8-8.0); Basophils % 0.9 % (0-1.3); Eosinophils % 0.2 % (0-4.4); Lymphocytes % 14.6 % (15.3-44.8); MCH 27.9 pg (27.0-35.0); MCV 82.2 fL (80-100); MPV 8.5 fL (7.6-11.3); Monocytes % 5.5 % (3.3-12.3); RBC Red Blood Cell Count 4.26 M/uL (3.86-4.86)
--- NOTE | 2018-05-26 17:59 | EDPHYS ---
Physician Documentation [facility] Name: Heather Hoep Age: 27 yrs Sex: Female : 1990 Arrival Date: 05/26/2018 Time: 14:28 Bed 19 Private MD: ED Physician Moi Avalos HPI: 05/26 15:50 This 27 yrs old Female presents to ER via EMS with complaints of Seizure. kb 15:50 The patient presents with a history of multiple seizures, a total of 3. Character of kb seizure(s): Loss of consciousness: the patient experienced loss of consciousness, during seizure(s), Motor activity: generalized, shaking all over, Incontinence: none, Apnea: the patient did not experience apnea, Circulation: the patient did not experience evidence of pulse disturbance. Seizure onset: today. Context: the seizure(s) was witnessed, by family. Seizure Hx: Original onset: longstanding. Associated injury: The patient did not suffer any apparent associated injury. EMS care: Ativan, IM. The patient has experienced similar episodes in the past, chronically. The patient has not recently seen a physician. EMS reports pt has had 3 seizures today, last one in route to ER. Pt responds to voice, follows commands. Reports she has seizures regularly, last one was yesterday. Takes [place]ney and sees Monserrat. Pt fell from standing position when she had the first seizure. No injuries noted or reported. Historical: - Allergies: 14:32 No Known Allergies; iw - Home Meds: 14:32 Keppra Oral [Active]; iw - PMHx: 14:32 Seizures; iw - Immunization history:: Adult Immunizations up to date. - Ebola Screening: : Patient negative for fever greater than or equal to 101.5 degrees Fahrenheit, and additional compatible Ebola Virus Disease symptoms Patient denies exposure to infectious person Patient denies travel to an Ebola-affected area in the 21 days before illness onset No symptoms or risks identified at this time. - Social history:: Smoking status: Patient/guardian denies using tobacco. ROS: 15:55 Constitutional: Negative for fever, chills, and weight loss, Eyes: Negative for injury, kb pain, redness, and discharge, ENT: Negative for injury, pain, and discharge, Neck: Negative for injury, pain, and swelling, Cardiovascular: Negative for chest pain, palpitations, and edema, Respiratory: Negative for shortness of breath, cough, wheezing, and pleuritic chest pain, Abdomen/GI: Negative for abdominal pain, nausea, vomiting, diarrhea, and constipation, Back: Negative for injury and pain, : Negative for injury, bleeding, discharge, and swelling, MS/Extremity: Negative for injury and deformity, Skin: Negative for injury, rash, and discoloration. 15:55 Neuro: Positive for seizure activity. Exam: 15:55 Constitutional: This is a well developed, well nourished patient who is awake, alert, kb and in no acute distress. Head/Face: Normocephalic, atraumatic. Eyes: Pupils equal round and reactive to light, extra-ocular motions intact. Lids and lashes normal. Conjunctiva and sclera are non-icteric and not injected. Cornea within normal limits. Periorbital areas with no swelling, redness, or edema. ENT: Nares patent. No nasal discharge, no septal abnormalities noted. Tympanic membranes are normal and external auditory canals are clear. Oropharynx with no redness, swelling, or masses, exudates, or evidence of obstruction, uvula midline. Mucous membranes moist. Neck: Trachea midline, no thyromegaly or masses palpated, and no cervical lymphadenopathy. Supple, full range of motion without nuchal rigidity, or vertebral point tenderness. No Meningismus. Chest/axilla: Normal chest wall appearance and motion. Nontender with no deformity. No lesions are appreciated. Cardiovascular: Regular rate and rhythm with a normal S1 and S2. No gallops, murmurs, or rubs. Normal PMI, no JVD. No pulse deficits. Respiratory: Lungs have equal breath sounds bilaterally, clear to auscultation and percussion. No rales, rhonchi or wheezes noted. No increased work of breathing, no retractions or nasal flaring. Abdomen/GI: Soft, non-tender, with normal bowel sounds. No distension or tympany. No guarding or rebound. No evidence of tenderness throughout. Skin: Warm, dry with normal turgor. Normal color with no rashes, no lesions, and no evidence of cellulitis. MS/ Extremity: Pulses equal, no cyanosis. Neurovascular intact. Full, normal range of motion. Neuro: Awake and alert, GCS 15, oriented to person, place, time, and situation. Cranial nerves II-XII grossly intact. Motor strength 5/5 in all extremities. Sensory grossly intact. Cerebellar exam normal. Normal gait. Vital Signs: 14:32 BP 117 / 74; Pulse 88; Resp 16 S; Temp 98.2; Pulse Ox 100% on 2 lpm NC; Weight 63.5 kg; iw Height 5 ft. 3 in. (160.02 cm); 15:57 BP 118 / 72; Pulse 91; Resp 19; Pulse Ox 100% on 1 lpm NC; aj 17:15 BP 129 / 74; Pulse 87; Resp 18; Pulse Ox 100% ; aj1 18:00 BP 129 / 80; Pulse 84; Resp 18; Pulse Ox 100% on R/A; aj1 14:32 Body Mass Index 24.80 (63.50 kg, 160.02 cm) iw [place] Coma Score: 18:21 Eye Response: spontaneous(4). Verbal Response: oriented(5). Motor Response: obeys aj1 commands(6). Total: 15. MDM: 14:39 Patient medically screened. kb 15:55 Data reviewed: vital signs, nurses notes. Data interpreted: Pulse oximetry: on room air kb is 100 %. Interpretation: normal. Counseling: I had a detailed discussion with the patient and/or guardian regarding: the historical points, exam findings, and any diagnostic results supporting the discharge/admit diagnosis, lab results, radiology results, the need for outpatient follow up, a neurologist, to return to the emergency department if symptoms worsen or persist or if there are any questions or concerns that arise at home. 17:06 ED course: Pt awake alert and oriented. No complaints at this time. States she feels kb good. 05/26 14:54 Order name: CBC with Diff; Complete Time: 16:42 05/26 14:54 Order name: Basic Metabolic Panel; Complete Time: 15:44 05/26 14:54 Order name: CT Head Brain wo Cont; Complete Time: 15:33 05/26 17:29 Order name: Urine Dipstick--Ancillary (enter results); Complete Time: 18:15 05/26 17:29 Order name: Urine --Ancillary (enter results); Complete Time: 18:15 05/26 14:56 Order name: Urine Dipstick-Ancillary (obtain specimen); Complete Time: 17:33 kb Administered Medications: 15:56 Drug: NS 0.9% 1000 ml Route: IV; Rate: 1000 ml; Site: left hand; aj 18:22 Follow up: IV Status: Completed infusion aj1 15:56 Drug: Keppra 1000 mg Route: IV; Rate: calculated rate; Site: left hand; aj 18:22 Follow up: IV Status: Completed infusion aj1 Disposition: 05/26/18 17:58 Discharged to Home. Impression: Epilepsy and recurrent seizures. - Condition is Stable. - Discharge Instructions: Seizure, Adult, [id number]. - Medication Reconciliation Form, Thank You Letter, Antibiotic Education, Prescription Opioid Use form. - Follow up: Emergency Department; When: As needed; Reason: Worsening of condition. Follow up: Private Physician; When: 2 - 3 days; Reason: Recheck today's complaints, Continuance of care, Re-evaluation by your physician. Addendum: 06/01/2018 01:36 Co-signature as Attending Physician, Moi Avalos MD. r n Signatures: Dispatcher [employer] EDOpal Mckenzie, TOBACCO ROLLER-C TOBACCO ROLLER-Ckb Cassidy Hall RN RN aj1 Arlene Wong RN RN aj Lashawn Jimenez RN RN iw Moi Avalos MD MD garment turner: (The following items were deleted from the chart) 05/26 18:30 17:58 05/26/2018 17:58 Discharged to Home. Impression: Epilepsy and recurrent seizures. aj1 Condition is Stable. Discharge Instructions: Seizure, Adult, [id number]. Forms are Medication Reconciliation Form, Thank You Letter, Antibiotic Education, Prescription Opioid Use. Follow up: Emergency Department; When: As needed; Reason: Worsening of condition. Follow up: Private Physician; When: 2 - 3 days; Reason: Recheck today's complaints, Continuance of care, Re-evaluation by your physician. kb
--- NOTE | 2018-05-26 17:59 | ER ---
Nurse's Notes [facility] Name: Heather Hope Age: 27 yrs Sex: Female : 1990 Arrival Date: 05/26/2018 Time: 14:28 Bed 19 Private MD: Diagnosis: Epilepsy and recurrent seizures Presentation: 05/26 14:28 Presenting complaint: EMS states: seizure X 3 today, hx of seizures, pt states she iw takes Keppra, oriented to person and time, EMS reports pt fell from standing and hit her head. Transition of care: patient was not received from another setting of care. Onset of symptoms was May 26, 2018. Risk Assessment: Do you want to hurt yourself or someone else? Patient reports no desire to harm self or others. Initial Sepsis Screen: Does the patient meet any 2 criteria? No. Patient's initial sepsis screen is negative. Does the patient have a suspected source of infection? No. Patient's initial sepsis screen is negative. Care prior to arrival: Medication(s) given: Ativan 2 mg IM right arm Med neb given. 14:28 Method Of Arrival: EMS: [facility] iw 14:28 Acuity: DARLYN 3 iw Triage Assessment: 18:21 General: Appears in no apparent distress. comfortable. aj1 Historical: - Allergies: 14:32 No Known Allergies; iw - Home Meds: 14:32 Keppra Oral [Active]; iw - PMHx: 14:32 Seizures; iw - Immunization history:: Adult Immunizations up to date. - Ebola Screening: : Patient negative for fever greater than or equal to 101.5 degrees Fahrenheit, and additional compatible Ebola Virus Disease symptoms Patient denies exposure to infectious person Patient denies travel to an Ebola-affected area in the 21 days before illness onset No symptoms or risks identified at this time. - Social history:: Smoking status: Patient/guardian denies using tobacco. Screenin:57 Abuse screen: Denies threats or abuse. Denies injuries from another. Nutritional aj screening: No deficits noted. Tuberculosis screening: No symptoms or risk factors identified. Fall Risk None identified. Assessment: 14:57 General: Appears in no apparent distress. comfortable, Behavior is calm, cooperative, aj appropriate for age. Pain: Denies pain. Neuro: Level of Consciousness is awake, obeys commands, lethargic, Oriented to person, place, time, situation, Appropriate for age Speech is normal, Seizure activity reported prior to arrival. Type of seizure: tonic-clonic seizure. Respiratory: Airway is patent Respiratory effort is even, unlabored, Respiratory pattern is regular, symmetrical. Derm: Skin is intact, is healthy with good turgor, Skin is pink, warm \T\ dry. normal. 17:15 General: Appears in no apparent distress. comfortable, Behavior is calm, cooperative. aj1 Pain: Denies pain. Neuro: Level of Consciousness is awake, alert, obeys commands, Oriented to person, place, time, situation, Moves all extremities. Full function Speech is normal, Facial symmetry appears normal. Cardiovascular: Patient's skin is warm and dry. Respiratory: Airway is patent Respiratory effort is even, unlabored, Respiratory pattern is regular, symmetrical. GI: No signs and/or symptoms were reported involving the gastrointestinal system. : No signs and/or symptoms were reported regarding the genitourinary system. EENT: No signs and/or symptoms were reported regarding the EENT system. Derm: No signs and/or symptoms reported regarding the dermatologic system. Skin is pink, warm \T\ dry. normal. Musculoskeletal: No signs and/or symptoms reported regarding the musculoskeletal system. Circulation, motion, and sensation intact. Vital Signs: 14:32 BP 117 / 74; Pulse 88; Resp 16 S; Temp 98.2; Pulse Ox 100% on 2 lpm NC; Weight 63.5 kg; iw Height 5 ft. 3 in. (160.02 cm); 15:57 BP 118 / 72; Pulse 91; Resp 19; Pulse Ox 100% on 1 lpm NC; aj 17:15 BP 129 / 74; Pulse 87; Resp 18; Pulse Ox 100% ; aj1 18:00 BP 129 / 80; Pulse 84; Resp 18; Pulse Ox 100% on R/A; aj1 14:32 Body Mass Index 24.80 (63.50 kg, 160.02 cm) iw [place] Coma Score: 18:21 Eye Response: spontaneous(4). Verbal Response: oriented(5). Motor Response: obeys aj1 commands(6). Total: 15. ED Course: 14:28 Patient arrived in ED. iw 14:29 Triage completed. iw 14:33 Arm band placed on. iw 14:38 [facility]resh[facility]. kb 14:39 Moi Avalos MD is Attending Physician. kb 14:55 Arlene Wong, RN is Primary Nurse. aj 14:57 Patient has correct armband on for positive identification. Pulse ox on. NIBP on. aj 14:57 Inserted saline lock: 24 gauge in left hand, using aseptic technique. aj 15:23 CT Head Brain wo Cont In Process Unspecified. EDMS 15:26 CT completed. Patient tolerated procedure well. Patient moved back from CT. mw3 17:15 Patient has correct armband on for positive identification. aj1 18:21 No provider procedures requiring assistance completed. IV discontinued, intact, aj1 bleeding controlled, No redness/swelling at site. Pressure dressing applied. Administered Medications: 15:56 Drug: NS 0.9% 1000 ml Route: IV; Rate: 1000 ml; Site: left hand; aj 18:22 Follow up: IV Status: Completed infusion aj1 15:56 Drug: Keppra 1000 mg Route: IV; Rate: calculated rate; Site: left hand; aj 18:22 Follow up: IV Status: Completed infusion aj1 Outcome: 17:58 Discharge ordered by . kb 18:22 Discharged to home ambulatory, with family. aj1 18:22 Condition: good 18:22 Discharge instructions given to patient, family, Instructed on discharge instructions, follow up and referral plans. Demonstrated understanding of instructions, follow-up care. 18:30 Patient left the ED. aj1 Signatures: Dispatcher [employer] EDMI Opal Gresham FNP-C FNP-Cassidy Bower RN RN aj1 Arlene Wong, RN Lashawn Hoffman RN RN iw Willis, Michelle mw3
[2018-05-26 18:13] LABS: Urine Blood NEGATIVE (NEG); Urine Glucose NEGATIVE (NEG); Urine Protein NEGATIVE (NEG); Urine Specific Gravity >1.030 (1.005-1.030); Urine pH 5.5 (5.0-7.0)
[2018-05-26 18:38] VITALS: TEMP 98.2; O2SAT 100
[2018-05-26 18:43] VITALS: BP 129/80
== END 2018-05-26 18:30 | disposition home or self-care (01) ==
LOC: ER 14:21
DX: G40.802 Other epilepsy, not intractable, without status epilepticus (principal)
CPT/HCPCS: 36415; 70450; 80048; 81003; 81025; 85025; 96365; 96366; 99284; J1953; J7030

== ENCOUNTER 2018-10-13 15:17 | Emergency (ER) | payer OTHER ==
--- OUTSIDE RECORDS SUMMARY | 2018-10-13 15:22 | XMS REPORT ---
:1990 [facility] Address [address] [place] [address] Care Team Providers Name Role Phone MILES RODAS Unavailable Unavailable Payers Payer Name Policy Type Policy Number Effective Date Expiration Date Problems This patient has no known problems. Allergies, Adverse Reactions, Alerts Allergy Allergy Status Severity Reaction(s) Onset Inactive Treating Comments Name Type Date Date Clinician No Known DA Active U 2017-04 Allergies -24 00:00:0 0 Medications This patient has no known medications. Results Test Description Test Time Test Comments Text Results Atomic Results Result Comments LEVETIRACETAM 2018-09-18 19:07:00 Test Item Value Reference Range Comments LEVETIRACETAM (test 28.7 ug/mL 10.0-40.0 This test was developed and its code=LEVTAM) performance characteristicsdetermined by [facility]. It has not been cleared orapproved by the Food and Drug Administration.Performed At: [facility] [id number] Dias MD Ph:[phone] BASIC METABOLIC [id number] 04:58:00 Test Item Value Reference Range Comments SODIUM (test code=NA) 138 MMOL/L 133-145 POTASSIUM (test code=K) 3.7 MMOL/L 3.6-5.2 CHLORIDE (test code=CL) 104 MMOL/L 100-108 CARBON DIOXIDE (test 25 MMOL/L 22-32 code=CO2) GLUCOSE (test code=GLU) 90 MG/DL 65-99 Results of this assay method may be falsely depressed orelevated if patient is taking sulfasalazine. BLOOD UREA NITROGEN (test 8 MG/DL 6-20 code=BUN) GLOMERULAR FILTRATION RATE 137 71-165 Reporting units: (test code=GFR) mL/min/1.73m\S\2 (Modified MDRD Formula) CREATININE (test code=CREAT) 0.53 MG/DL 0.60-1.00 CALCIUM (test code=CA) 8.9 MG/DL 8.7-10.5 [id number] 04:58:00 Test Item Value Reference Range Comments MAGNESIUM (test code=MAG) 1.9 MG/DL 1.8-2.4 CBC W/AUTO [id number] 04:08:00 Test Item Value Reference Range Comments WHITE BLOOD CELL (test code=WBC) 8.24 x10 3/uL 4.80-10.80 RED BLOOD CELL (test code=RBC) 4.57 x10 6/uL 4.2-5.4 HEMOGLOBIN (test code=HGB) 11.2 G/DL 12.0-16.0 HEMATOCRIT (test code=HCT) 35.3 % 37-47 MEAN CELL VOLUME (test code=MCV) 77.2 FL 81-99 MEAN CELL HGB (test code=MCH) 24.5 PG 27-31 MEAN CELL HGB CONCENTRATION (test code=MCHC) 31.7 G/DL 33-37 RED CELL DISTRIBUTION WIDTH (test code=RDW) 15.2 % 11.5-14.5 PLATELET COUNT (test code=PLT) 282 x10 3/uL 150-450 MEAN PLATELET VOLUME (test code=MPV) 10.3 FL 7.4-10.4 NEUTROPHIL % (test code=NT%) 47.0 % 42-86 IMMATURE GRANULOCYTE % (test code=IG%) 0.1 % 0.0-2.0 LYMPHOCYTE % (test code=LY%) 40.5 % 24-44 MONOCYTE % (test code=MO%) 9.0 % 0.0-4.0 EOSINOPHIL % (test code=EO%) 2.9 % 0.0-2.7 BASOPHIL % (test code=BA%) 0.5 % 0.0-0.5 NUCLEATED RBC % (test code=NRBC%) 0.0 % 0.0-0.0 NEUTROPHIL # (test code=NT#) 3.87 x10 3/uL 1.8-7.7 IMMATURE GRANULOCYTE # (test code=IG#) 0.01 x10 3/uL 0.00-0.03 LYMPHOCYTE # (test code=LY#) 3.34 x10 3/uL 1.0-4.8 MONOCYTE # (test code=MO#) 0.74 x10 3/uL 0.0-0.8 EOSINOPHIL # (test code=EO#) 0.24 x10 3/uL 0.0-0.5 BASOPHIL # (test code=BA#) 0.04 x10 3/uL 0.0-0.2 NUCLEATED RBC # (test code=NRBC#) 0.0 X10 3/uL 0.0-0.2 - MRI BRAIN W/O [id number] 13:51:00 Patient Name: SAHRA NETTLES Unit No: [id number] EXAMS: CPT CODE: [id number] MRI BRAIN W/O CONTRAST 38722 Reason: sz INDICATION: Seizure COMPARISON: CT brain, 09/14/2018 TECHNIQUE: Scans of the brain are performed inthe sagittal, coronal and transaxial planes using T1, fast spin-echo T2, FLAIR, gradientecho and diffusion-weighted scan protocols. FINDINGS: Examination is grossly suboptimal due to motion artifact. Only limited information can be obtained from this study. Theventricular system and subarachnoid spaces appear normal and no acute infarct or hemorrhage isidentified. No additional findings are seen. IMPRESSION: Grossly suboptimal MR due to motion artifact; no acute findings noted. Due to movement disorder, please do not reschedule this exam until the patient can hold still. at 1350 Reported and signed by: Lashell Anderson MD CC: Fanny Knowles DO; Jacob Gutierrez MD Technologist: Andre Self MRI Trscrpt Dt/ (5316)AngeliqueDW6 Orig Print D/T: S: 09/17/2018 (7412) [facility] CntNAME: SAHRA NETTLES NOVEMBER [address] PHYS: [place] [address] : 1990 AGE: 27 SEX: F LOC: D.D313 1 PHONE #: [phone] EXAM DATE: 09/17/2018 STATUS: ADM IN FAX #: RAD NO: DC Dt: PAGE 1 Signed [id number] 07:25:00 Test Item Value Reference Range Comments PROLACTIN (test code=PROLAC) 24.6 ng/mL 4.8-23.3 Performed At: [facility] [id number] Sb Man MD Ph:[phone] UA RFLX MICROSCOPIC [id number] 19:02:00 Test Item Value Reference Range Comments UA COLOR (test code=COLU) YELLOW YELLOW UA APPEARANCE (test code=APPU) CLEAR CLEAR UA GLUCOSE DIPSTICK (test code=DGLUU) NEGATIVE mg/dL NEGATIVE UA BILIRUBIN DIPSTICK (test code=BILU) NEGATIVE NEGATIVE UA KETONE DIPSTICK (test code=KETU) NEGATIVE mg/dL NEGATIVE UA SPECIFIC GRAVITY (test code=SGU) 1.015 1.001-1.035 UA BLOOD DIPSTICK (test code=RIVER) NEGATIVE NEGATIVE UA PH DIPSTICK (test code=MARY) 6.0 5.5-7.0 UA PROTEIN DIPSTICK (test code=PROU) NEGATIVE mg/dL NEGATIVE UA UROBILINOGEN DIPSTICK (test code=URO) NORMAL mg/dL NORMAL UA NITRITE DIPSTICK (test code=KIET) NEGATIVE NEGATIVE UA LEUKOCYTE ESTERASE DIPSTICK (test NEGATIVE NEGATIVE code=LEUU) UA COMMENT (test code=COMU) VOLUME 10-12 ML URINE SPECIMEN DESCRIPTION (test Clean Catch code=UASPEC) UA WBC (test code=WBCU) < 10 #/hpf <10 UA SQUAMOUS CELLS (test code=SQU) 0 - 20 #/lpf <100 UA CULTURE NEEDED? (test code=UACULT) Criteria not met URINE SOURCE: Clean CatchUA RFLX MICROSCOPIC [id number] 18:56:00 Test Item Value Reference Range Comments UA COLOR (test code=COLU) YELLOW YELLOW UA APPEARANCE (test code=APPU) CLEAR CLEAR UA GLUCOSE DIPSTICK (test code=DGLUU) NEGATIVE mg/dL NEGATIVE UA BILIRUBIN DIPSTICK (test code=BILU) NEGATIVE NEGATIVE UA KETONE DIPSTICK (test code=KETU) NEGATIVE mg/dL NEGATIVE UA SPECIFIC GRAVITY (test code=SGU) 1.015 1.001-1.035 UA BLOOD DIPSTICK (test code=RIVER) NEGATIVE NEGATIVE UA PH DIPSTICK (test code=MARY) 6.0 5.5-7.0 UA PROTEIN DIPSTICK (test code=PROU) NEGATIVE mg/dL NEGATIVE UA UROBILINOGEN DIPSTICK (test code=URO) NORMAL mg/dL NORMAL UA NITRITE DIPSTICK (test code=KIET) NEGATIVE NEGATIVE UA LEUKOCYTE ESTERASE DIPSTICK (test NEGATIVE NEGATIVE code=LEUU) UA COMMENT (test code=COMU) VOLUME 10-12 ML URINE SPECIMEN DESCRIPTION (test Clean Catch code=UASPEC) UA WBC (test code=WBCU) #/hpf <10 UA SQUAMOUS CELLS (test code=SQU) #/lpf <100 UA CULTURE NEEDED? (test code=UACULT) URINE SOURCE: Clean [id number] 15:56:00 Test Item Value Reference Range Comments CK (test code=CKT) 34 Units/L 26-192 BASIC METABOLIC [id number] 12:57:00 Test Item Value Reference Range Comments SODIUM (test code=NA) 136 MMOL/L 133-145 POTASSIUM (test code=K) 3.5 MMOL/L 3.6-5.2 CHLORIDE (test code=CL) 103 MMOL/L 100-108 CARBON DIOXIDE (test 26 MMOL/L 22-32 code=CO2) GLUCOSE (test code=GLU) 115 MG/DL 65-99 Results of this assay method may be falsely depressed orelevated if patient is taking sulfasalazine. BLOOD UREA NITROGEN (test 8 MG/DL 6-20 code=BUN) GLOMERULAR FILTRATION RATE 119 71-165 Reporting units: (test code=GFR) mL/min/1.73m\S\2 (Modified MDRD Formula) CREATININE (test code=CREAT) 0.60 MG/DL 0.60-1.00 CALCIUM (test code=CA) 8.6 MG/DL 8.7-10.5 [id number] 12:57:00 Test Item Value Reference Range Comments CK (test code=CKT) 32 Units/L 26-192 CBC W/AUTO [id number] 12:33:00 Test Item Value Reference Range Comments WHITE BLOOD CELL (test code=WBC) 8.89 x10 3/uL 4.80-10.80 RED BLOOD CELL (test code=RBC) 4.54 x10 6/uL 4.2-5.4 HEMOGLOBIN (test code=HGB) 11.2 G/DL 12.0-16.0 HEMATOCRIT (test code=HCT) 35.0 % 37-47 MEAN CELL VOLUME (test code=MCV) 77.1 FL 81-99 MEAN CELL HGB (test code=MCH) 24.7 PG 27-31 MEAN CELL HGB CONCENTRATION (test code=MCHC) 32.0 G/DL 33-37 RED CELL DISTRIBUTION WIDTH (test code=RDW) 14.6 % 11.5-14.5 PLATELET COUNT (test code=PLT) 288 x10 3/uL 150-450 MEAN PLATELET VOLUME (test code=MPV) 9.5 FL 7.4-10.4 NEUTROPHIL % (test code=NT%) 61.7 % 42-86 IMMATURE GRANULOCYTE % (test code=IG%) 0.2 % 0.0-2.0 LYMPHOCYTE % (test code=LY%) 27.1 % 24-44 MONOCYTE % (test code=MO%) 9.2 % 0.0-4.0 EOSINOPHIL % (test code=EO%) 1.1 % 0.0-2.7 BASOPHIL % (test code=BA%) 0.7 % 0.0-0.5 NUCLEATED RBC % (test code=NRBC%) 0.0 % 0.0-0.0 NEUTROPHIL # (test code=NT#) 5.48 x10 3/uL 1.8-7.7 IMMATURE GRANULOCYTE # (test code=IG#) 0.02 x10 3/uL 0.00-0.03 LYMPHOCYTE # (test code=LY#) 2.41 x10 3/uL 1.0-4.8 MONOCYTE # (test code=MO#) 0.82 x10 3/uL 0.0-0.8 EOSINOPHIL # (test code=EO#) 0.10 x10 3/uL 0.0-0.5 BASOPHIL # (test code=BA#) 0.06 x10 3/uL 0.0-0.2 NUCLEATED RBC # (test code=NRBC#) 0.0 X10 3/uL 0.0-0.2 TOTAL IRON BINDING [id number] 05:50:00 Test Item Value Reference Range Comments SERUM IRON (test code=IRON) 17 MCG/DL 50-170 TOTAL IRON BINDING CAPACITY (test code=TIBC) 363 MCG/DL 280-400 IRON SATURATION (test code=FESAT) 5 % 15-50 [id number] 05:50:00 Test Item Value Reference Range Comments FERRITIN (test code=LULI) 11 NG/ML 3-105 HEPATIC FUNCTION [id number] 05:32:00 Test Item Value Reference Range Comments TOTAL PROTEIN (test 7.7 G/DL 6.4-8.2 code=PROT) ALBUMIN (test code=ALB) 4.0 G/DL 3.4-5.0 GLOBULIN (test code=GLOB) 3.7 G/DL 1.5-3.8 ALBUMIN/GLOBULIN RATIO (test 1.1 1.1-2.2 code=A/G) BILIRUBIN TOTAL (test 0.3 MG/DL 0.0-1.0 code=BILT) BILIRUBIN DIRECT (test 0.1 MG/DL 0.0-0.3 code=BILD) BILIRUBIN INDIRECT (test 0.2 MG/DL 0.0-0.7 code=BILIND) SGOT/AST (test code=AST) 21 Units/L 15-37 Results of this assay method may be falsely depressed orelevated if patient is taking sulfasalazine. SGPT/ALT (test code=ALT) 21 Units/L 30-65 Results of this assay method may be falsely depressed orelevated if patient is taking sulfasalazine. ALKALINE PHOSPHATASE TOTAL 100 Units/L 50-136 (test code=ALKP) - CT HEAD/BRAIN W/O [id number] 20:19:00 Patient Name: SAHRA NETTLES Unit No: [id number] EXAMS: CPT CODE: [id number] CT HEAD/BRAIN W/O CONT 63960 Reason: seizure TECHNIQUE: Contiguous 5 mm images were obtained throughbrain. No contrast was given. FINDINGS: The ventricles are normal in size and configuration. There is no intracranial hemorrhage, mass effect or abnormal extra-axial fluid collection. There are no focal attenuation abnormalities within the brain parenchyma. Bone targeted windows are unremarkable. IMPRESSION: Negative at 2019 Reported and signed by: Lashell Jimenez MD CC: Keanu Vázquez MD; Cristiane Heath Technologist: Edel Cade CT Trscrpt Dt / (2018)Tristan Orig Print D/T: S: 07/2018 (2021) CTDI: DLP: [facility] NAME: NADINE NETTLESICA [facility] PHYS: HOGSAVANAH. - Keanu Váz[place] [address] : 1990 AGE: 27 SEX: F LOC: D.NER PHONE#: [phone] EXAM DATE: 07/2018 STATUS: REG ER FAX #: RAD NO: DC Dt: PAGE 1 Signed Report- XR CHEST 1 [id number] 20:18:00 [facility] Unit No: [id number] EXAMS: CPT CODE: [id number] XR CHEST 1 V 28659 Reason: screen for pneumonia FINDINGS: Single view ofthe chest shows normal heart size and pulmonary vasculature. The lungs are clear bilaterally. There is no focal infiltrate, pleural effusion or pneumothorax. IMPRESSION: No acute cardiopulmonary findings at 2018 Reported and signed by : Lashell Jimenez MD CC: Keanu Vázquez MD; Cristiane Heath Technologist: Edel Cade CT Trscrpt Dt/ (2017)Tristan Orig PrintD/T: S: 09/14/2018 (2020) [facility] NAME: NADINE NETTLESICA [facility] PHYS: [place] [address] : 1990 AGE: 27 SEX: F LOC: D.NER PHONE #: [phone] EXAM DATE: 09/14/2018 STATUS: REG ER FAX #: RAD NO: DC Dt: PAGE 1 Signed ReportHCG SERUM [id number] 20:04:00 Test Item Value Reference Range Comments HCG SERUM QUAL (test NEGATIVE NEGATIVE False negatives may occur when code=HCGQL) levels of hCGare below 10 mIU/ml. When is still suspected, a new specimenshould be obtained after 48 hours and re-tested.If waiting 48 hours is not medically advisable,the test result should be confirmed using aquantitative hCG assay. BASIC METABOLIC [id number] 19:51:00 Test Item Value Reference Range Comments SODIUM (test code=NA) 139 MMOL/L 133-145 POTASSIUM (test code=K) 3.9 MMOL/L 3.6-5.2 CHLORIDE (test code=CL) 101 MMOL/L 100-108 CARBON DIOXIDE (test 30 MMOL/L 22-32 code=CO2) GLUCOSE (test code=GLU) 95 MG/DL 65-99 Results of this assay method may be falsely depressed orelevated if patient is taking sulfasalazine. BLOOD UREA NITROGEN (test 9 MG/DL 6-20 code=BUN) GLOMERULAR FILTRATION RATE 96 71-165 Reporting units: (test code=GFR) mL/min/1.73m\S\2 (Modified MDRD Formula) CREATININE (test code=CREAT) 0.72 MG/DL 0.60-1.00 CALCIUM (test code=CA) 9.3 MG/DL 8.7-10.5 CBC W/AUTO [id number] 19:46:00 Test Item Value Reference Range Comments WHITE BLOOD CELL (test code=WBC) 10.04 x10 3/uL 4.80-10.80 RED BLOOD CELL (test code=RBC) 4.90 x10 6/uL 4.2-5.4 HEMOGLOBIN (test code=HGB) 10.9 G/DL 12.0-16.0 HEMATOCRIT (test code=HCT) 37.4 % 37-47 MEAN CELL VOLUME (test code=MCV) 76.3 FL 81-99 MEAN CELL HGB (test code=MCH) 22.2 PG 27-31 MEAN CELL HGB CONCENTRATION (test code=MCHC) 29.1 G/DL 33-37 RED CELL DISTRIBUTION WIDTH (test code=RDW) 15.0 % 11.5-14.5 PLATELET COUNT (test code=PLT) 371 x10 3/uL 150-450 MEAN PLATELET VOLUME (test code=MPV) 9.8 FL 7.4-10.4 NEUTROPHIL % (test code=NT%) 65.2 % 42-86 LYMPHOCYTE % (test code=LY%) 22.2 % 24-44 MONOCYTE % (test code=MO%) 10.5 % 0.0-4.0 EOSINOPHIL % (test code=EO%) 1.6 % 0.0-2.7 BASOPHIL % (test code=BA%) 0.5 % 0.0-0.5 NEUTROPHIL # (test code=NT#) 6.55 x10 3/uL 1.8-7.7 LYMPHOCYTE # (test code=LY#) 2.23 x10 3/uL 1.0-4.8 MONOCYTE # (test code=MO#) 1.05 x10 3/uL 0.0-0.8 EOSINOPHIL # (test code=EO#) 0.16 x10 3/uL 0.0-0.5 BASOPHIL # (test code=BA#) 0.05 x10 3/uL 0.0-0.2 BLOOD [id number] 10:00:00 Test Item Value Reference Range Comments CULTURE (BEAKER) (test udqq=6205) No growth in 5 days HCG, QUANTITATIVE, [id number] 15:37:00 Test Item Value Reference Range Comments GONADOTROPIN, CHORIONIC (HCG) QUANT (BEAKER) 30932 mIU/mL 0-10 (test qzgu=012) Non- Females: <10 mIU/mL Females: Gestation Age Reference Range(mIU/mL) 0.2-1 Week 5-50 1-2 Weeks 50-500 2-3 Weeks 100-5,000 3-4Weeks 500-10,000 4 -5 Weeks 1,000-50,000 5-6 Weeks 10,000-100,000 6-8 Weeks 15,000-200,000 2-3 Months 10,000-100,000COMPREHENSIVE METABOLIC [id number] 15:10:00 Test Item Value Reference Range Comments TOTAL PROTEIN (BEAKER) 7.0 gm/dL 6.0-8.3 (test kszr=661) ALBUMIN (BEAKER) (test 3.9 g/dL 3.5-5.0 frei=4051) ALKALINE PHOSPHATASE 50 U/L 40-150 (BEAKER) (test ufuo=035) BILIRUBIN TOTAL (BEAKER) 0.5 mg/dL 0.2-1.2 (test uqvq=965) SODIUM (BEAKER) (test 140 meq/L 136-145 wtbu=015) POTASSIUM (BEAKER) (test 3.4 meq/L 3.5-5.1 uzkm=025) CHLORIDE (BEAKER) (test 107 meq/L 98-107 npei=682) CO2 (BEAKER) (test 21 meq/L 22-29 xeqt=484) BLOOD UREA NITROGEN 6 mg/dL 7-21 (BEAKER) (test svpl=887) CREATININE (BEAKER) (test 0.54 mg/dL 0.57-1.25 dgcu=316) GLUCOSE RANDOM (BEAKER) 76 mg/dL 70-105 (test myji=848) CALCIUM (BEAKER) (test 9.2 mg/dL 8.4-10.2 kynp=852) AST (SGOT) (BEAKER) (test 57 U/L 5-34 zfut=643) ALT (SGPT) (BEAKER) (test 84 U/L 6-55 wkol=989) EGFR (BEAKER) (test 135 mL/min/1.73 sq ESTIMATED GFR IS NOT vvgb=2888) m ACCURATE CREATININE CLEARANCE IN PREDICTING GLOMERULAR FILTRATION RATE. ESTIMATED GFR IS NOT APPLICABLE FOR DIALYSIS PATIENTS. CBC W/PLT COUNT & AUTO [id number] 14:53:00 Test Item Value Reference Range Comments WHITE BLOOD CELL COUNT (BEAKER) (test rigx=399) 9.7 K/ L 3.5-10.5 RED BLOOD CELL COUNT (BEAKER) (test btjb=701) 4.31 M/ L 3.93-5.22 HEMOGLOBIN (BEAKER) (test mtaf=067) 10.0 GM/DL 11.2-15.7 HEMATOCRIT (BEAKER) (test kelw=012) 31.9 % 34.1-44.9 MEAN CORPUSCULAR VOLUME (BEAKER) (test ctuw=583) 74.0 fL 79.4-94.8 MEAN CORPUSCULAR HEMOGLOBIN (BEAKER) (test 23.2 pg 25.6-32.2 xqva=243) MEAN CORPUSCULAR HEMOGLOBIN CONC (BEAKER) (test 31.3 GM/DL 32.2-35.5 tpph=198) RED CELL DISTRIBUTION WIDTH (BEAKER) (test 19.0 % 11.7-14.4 dabz=686) PLATELET COUNT (BEAKER) (test mdqh=500) 259 K/CU MM 150-450 MEAN PLATELET VOLUME (BEAKER) (test ozhv=133) 9.9 fL 9.4-12.3 NUCLEATED RED BLOOD CELLS (BEAKER) (test 0 /100 WBC 0-0 njeq=412) NEUTROPHILS RELATIVE PERCENT (BEAKER) (test 70 % sgur=507) LYMPHOCYTES RELATIVE PERCENT (BEAKER) (test 21 % wbga=944) MONOCYTES RELATIVE PERCENT (BEAKER) (test 8 % xwbv=593) EOSINOPHILS RELATIVE PERCENT (BEAKER) (test 1 % snyy=730) BASOPHILS RELATIVE PERCENT (BEAKER) (test 1 % ilrf=320) NEUTROPHILS ABSOLUTE COUNT (BEAKER) (test 6.75 K/ L 1.56-6.13 yndk=938) LYMPHOCYTES ABSOLUTE COUNT (BEAKER) (test 2.01 K/ L 1.18-3.74 hqzt=715) MONOCYTES ABSOLUTE COUNT (BEAKER) (test 0.75 K/ L 0.24-0.36 dcgb=291) EOSINOPHILS ABSOLUTE COUNT (BEAKER) (test 0.07 K/ L 0.04-0.36 auqc=844) BASOPHILS ABSOLUTE COUNT (BEAKER) (test 0.08 K/ L 0.01-0.08 rsho=772) IMMATURE GRANULOCYTES-RELATIVE PERCENT (BEAKER) 0 % 0-1 (test zaen=3210) U/S, , FIRST [id number] 07:52:00Reason for exam:-> Reason for exam:->please include [...] 1 day. An embryonic pole is evident. Stigler-rump length measures 0.63 cm, correlating with estimated [...] Garrido Verified Date/Time: 05/17/2017 07:52:37 Reading Location: [address] Ortho Consult Reading Room PREGNANCY SCREEN, [id number] 05:28:00 Test Item Value Reference Range Comments TEST URINE (BEAKER) (test gqih=354) Positive MR, BRAIN, WITHOUT [id number] 18:54:00Reason for exam:->Stroke evaluationFINAL REPORT MRI brain [...] but otherwise unremarkable noncontrast examination. Signed: Inderjit Parra Verified Date/Time: 05/15/2017 18 :54:11 Reading Location: [facility] Radiology Reading Room EEG AWAKE AND [id number] 12:08:00Reason for exam:->? nonconvulsive statusDATE OF TEST: 2016DATE OF REPORT 05/15/2017 ACC: [id number] EE Start time: 1034 Stop time: 1054 ICD-10: R56.9CPT Code: 82965LCPEPVI: 26 y/o woman with epilepsy found down [...] remains, consider additional EEG recordings.Marika Smith M.D.Neurophysiology FellowSwathi Harper M.D.Neurophysiology Attending [id number] 04:27:00 Test Item Value Reference Range Comments PROCALCITONIN (BEAKER) (test yrmu=2855) 0.17 ng/mL <0.05 SEPSIS RISK (ng/mL)Low: 0.05-0.50Intermediate: 0.51-2.00High: & gt;=[id number] 03:15:00 Test Item Value Reference Range Comments PHOSPHORUS (BEAKER) (test ayfe=893) 3.1 mg/dL 2.3-4.7 [id number] 03:15:00 Test Item Value Reference Range Comments MAGNESIUM (BEAKER) (test iqjc=939) 1.9 mg/dL 1.6-2.6 BASIC METABOLIC [id number] 03:15:00 Test Item Value Reference Range Comments SODIUM (BEAKER) (test 139 meq/L 136-145 kokj=505) POTASSIUM (BEAKER) (test 3.7 meq/L 3.5-5.1 sdjn=306) CHLORIDE (BEAKER) (test 110 meq/L 98-107 pgqr=081) CO2 (BEAKER) (test 19 meq/L 22-29 cczb=092) BLOOD UREA NITROGEN 8 mg/dL 7-21 (BEAKER) (test feom=661) CREATININE (BEAKER) (test 0.57 mg/dL 0.57-1.25 ikog=306) GLUCOSE RANDOM (BEAKER) 92 mg/dL 70-105 (test jgml=087) CALCIUM (BEAKER) (test 9.2 mg/dL 8.4-10.2 hjha=265) EGFR (BEAKER) (test 127 mL/min/1.73 sq m ESTIMATED GFR IS NOT jnhg=2972) ACCURATE CREATININE CLEARANCE IN PREDICTING GLOMERULAR FILTRATION RATE. ESTIMATED GFR IS NOT APPLICABLE FOR DIALYSIS PATIENTS. CREATINE KINASE (CK)2017-05-15 03:15:00 Test Item Value Reference Range Comments CREATINE KINASE TOTAL (BEAKER) (test lgba=363) 200 U/L 29-200 LACTIC ACID, VENOUS, WHOLE [id number] 03:09:00 Test Item Value Reference Range Comments LACTATE BLOOD VENOUS (2) (BEAKER) (test 0.6 mmol/L 0.5-2.2 ikyr=9575) Effective 10/17/2015: Units/Reference Range ChangeNew: 0.5-2.2 mmol/L Previous: 5 -20 mg/dLPROTHROMBIN TIME/[id number] 03:07:00 Test Item Value Reference Range Comments PROTIME (BEAKER) (test anjs=336) 14.5 seconds 11.7-14.7 INR (BEAKER) (test okia=832) 1.1 <=5.9 RECOMMENDED COUMADIN/WARFARIN INR THERAPY RANGESSTANDARD DOSE: 2.0 - 3.0 Includes: PROPHYLAXIS forvenous thrombosis, systemic embolization; TREATMENT for venous thrombosis and/or pulmonary embolus.HIGH RISK: Target INR is 2.5-3.5 for patients with mechanical heart valves.CBC W/PLT COUNT & AUTO [id number] 03:00:00 Test Item Value Reference Range Comments WHITE BLOOD CELL COUNT (BEAKER) (test iqyo=006) 21.6 K/ L 3.5-10.5 RED BLOOD CELL COUNT (BEAKER) (test qytd=149) 4.04 M/ L 3.93-5.22 HEMOGLOBIN (BEAKER) (test wuka=503) 9.3 GM/DL 11.2-15.7 HEMATOCRIT (BEAKER) (test wgcs=589) 30.1 % 34.1-44.9 MEAN CORPUSCULAR VOLUME (BEAKER) (test pnrg=218) 74.5 fL 79.4-94.8 MEAN CORPUSCULAR HEMOGLOBIN (BEAKER) (test 23.0 pg 25.6-32.2 rfmz=978) MEAN CORPUSCULAR HEMOGLOBIN CONC (BEAKER) (test 30.9 GM/DL 32.2-35.5 twqy=920) RED CELL DISTRIBUTION WIDTH (BEAKER) (test 19.3 % 11.7-14.4 fsgp=401) PLATELET COUNT (BEAKER) (test plmd=240) 250 K/CU MM 150-450 MEAN PLATELET VOLUME (BEAKER) (test ebzv=729) 10.3 fL 9.4-12.3 NUCLEATED RED BLOOD CELLS (BEAKER) (test 0 /100 WBC 0-0 xfwx=776) NEUTROPHILS RELATIVE PERCENT (BEAKER) (test 83 % skxp=287) LYMPHOCYTES RELATIVE PERCENT (BEAKER) (test 9 % rmsx=252) MONOCYTES RELATIVE PERCENT (BEAKER) (test 8 % mnzr=184) EOSINOPHILS RELATIVE PERCENT (BEAKER) (test 0 % wxhq=537) BASOPHILS RELATIVE PERCENT (BEAKER) (test 0 % wrnd=499) NEUTROPHILS ABSOLUTE COUNT (BEAKER) (test 17.85 K/ L 1.56-6.13 pzrt=487) LYMPHOCYTES ABSOLUTE COUNT (BEAKER) (test 1.98 K/ L 1.18-3.74 xbez=070) MONOCYTES ABSOLUTE COUNT (BEAKER) (test 1.62 K/ L 0.24-0.36 gdbw=991) EOSINOPHILS ABSOLUTE COUNT (BEAKER) (test 0.01 K/ L 0.04-0.36 wuje=986) BASOPHILS ABSOLUTE COUNT (BEAKER) (test 0.04 K/ L 0.01-0.08 zzyu=291) IMMATURE GRANULOCYTES-RELATIVE PERCENT (BEAKER) 1 % 0-1 (test xkdz=4041) RAD, CHEST, 1 VIEW, NON [id number] 01:06:00Reason for exam:->possible infectionShould this be performed at the bedside?->YesFINAL REPORT History: Infection. Comparison: None. Findings: A single view of the chest is submitted. The cardiomediastinal contours are unremarkable. There is no focal consolidation, pneumothorax, large pleural effusion or evidence of overt pulmonary edema. There is no acute bony abnormality. Impression: No acute abnormality. Signed: Kobi Zhu MDReport Verified Date/Time: 2016 01:06:06 Reading Location: [address] Reading Room
--- OUTSIDE RECORDS SUMMARY | 2018-10-13 15:22 | XMS REPORT | Clinical Summary ---
:1990 Author Organization [facility] Address [address] [place] [address] Care Team Providers Name Role Phone Unavailable Primary Care Provider Unavailable Allergies No Known Allergies Medications Medication Sig Dispensed Refills Start Date End Date Status levETIRAcetam Take 1 tablet 60 tablet 2 05/19/2017 Active (KEPPRA) 1000 MG (1,000 mg tablet total) by mouth 2 (two) times daily. vitamin Take 1 tablet 90 tablet 3 05/20/2017 Active w/sccvkkf-plpd-rgxvxz by mouth daily. ( PLUS) 27 mg iron- 1 mg Tab folic acid (FOLVITE) Take 2 tablets 180 [...] Not on file Results Not on fileafter 10/12/2017 Insurance Payer Benefit Plan / Group Subscriber ID Type Phone Address MEDICAID [place] xxxxxxxxx Medicaid Advance Directives For more information, please contact:[address] [phone] Code Status Date Activated Date Inactivated Comments Full Code 05/14/2017 10:10 PM 05/19/2017 2:55 PM This code status was determined by: Patient
[2018-10-13] MEDS ORDERED: LORazepam 2 MG/ML VIAL ONE (15:34)
[2018-10-13] MEDS ORDERED: NA CHLORIDE 0.9% 1,000 ML ONE (15:47)
[2018-10-13 16:05] LABS: Urine Blood 3+ (NEG); Urine Glucose NEGATIVE (NEG); Urine Protein 3+ (NEG); Urine Specific Gravity >1.030 (1.005-1.030); Urine pH 5.5 (5.0-7.0)
[2018-10-13 16:06] LABS: Absolute Lymphocytes (CBC) 2.3 K/uL (0.7-4.9); Absolute Monocytes 0.8 K/uL (0.1-1.3); Absolute Neutrophil 4.7 K/uL (1.8-8.0); Basophils % 0.6 % (0-1.3); Eosinophils % 1.6 % (0-4.4); Hematocrit 37.3 % (36.0-45.0); Lymphocytes % 28.9 % (15.3-44.8); MPV 9.1 fL (7.6-11.3); Monocytes % 9.9 % (3.3-12.3); RBC Red Blood Cell Count 4.84 M/uL (3.86-4.86)
[2018-10-13 16:15] LABS: Barbiturates NEGATIVE (NEGATIVE); Benzodiazepines NEGATIVE (NEGATIVE); Cocaine NEGATIVE (NEGATIVE); METHAMPHETAM NEGATIVE (NEGATIVE); Methadone NEGATIVE (NEGATIVE); Opiates NEGATIVE (NEGATIVE); Phencyclidine NEGATIVE (NEGATIVE); THC Cannibis NEGATIVE (NEGATIVE)
[2018-10-13 16:19] LABS: Protime INR 1.02
[2018-10-13 16:29] LABS: ALT/SGPT 18 U/L (12-78); AST/SGOT 18 U/L (15-37); Albumin 4.3 g/dL (3.4-5.0); Alkaline Phosphatase 71 U/L (45-117); BUN Blood Urea Nitrogen 7 mg/dL (7-18); Bicarbonate 19 mmol/L (21-32); Bilirubin Direct < 0.1 mg/dL (0-0.2); Bilirubin Total 0.2 mg/dL (0.2-1.0); Glucose Level 93 mg/dL (74-106); Potassium 3.6 mmol/L (3.5-5.1); Protein, Total 8.2 g/dL (6.4-8.2); Sodium Level 142 mmol/L (136-145)
--- NOTE | 2018-10-13 16:48 | EKG ---
Test Date: 2018-10-13 Test Time: 15:52:19 [employer]: [place]IO MEASUREMENT RESULTS: Intervals: Rate: 126 SD: 150 QRSD: 80 QT: 284 QTc: 411 [place]: P: 47 SD: 150 QRS: 11 T: 3 INTERPRETIVE STATEMENTS: Sinus tachycardia Possible Left atrial enlargement Cannot rule out Anterior infarct, age undetermined Abnormal ECG Compared to ECG 04/08/2018 16:55:30 Sinus rhythm no longer present questionable myocardial infarct finding still present Electronically Signed On 10-13-18 16:47:48 CDT by Gerard Edwards
--- NOTE | 2018-10-13 17:06 | ER ---
Nurse's Notes [facility] Name: Heather Hope Age: 27 yrs Sex: Female : 1990 Arrival Date: 10/13/2018 Time: 15:18 Bed 2 Private MD: Diagnosis: Nonepileptic Seizure Presentation: 10/13 15:19 Presenting complaint: EMS states: pt had hx of seizure and been taking keppra 750 mg 2x hj a day; she was was in [place] for seizure check up; today, she was altered and was uncooperative and not herself on scene; when EMT checks her pupils she rolls them up and she is shaking uncontrollably, not seizure type; V/S stable;. Transition of care: patient was not received from another setting of care. Onset of symptoms was October 13, 2018. Risk Assessment: Do you want to hurt yourself or someone else? Patient reports no desire to harm self or others. Initial Sepsis Screen: Does the patient meet any 2 criteria? No. Patient's initial sepsis screen is negative. Does the patient have a suspected source of infection? No. Patient's initial sepsis screen is negative. Care prior to arrival: None. 15:19 Method Of Arrival: EMS 15:19 Acuity: DARLYN 2 hj Triage Assessment: 15:29 General: Appears in no apparent distress. uncomfortable, Behavior is restless, hj uncooperative. Pain: Unable to use pain scale. Patient is disoriented. Neuro: Level of Consciousness is awake, confused, Oriented to none. 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 - Social history:: Smoking status: unknown Patient/guardian denies using. - Ebola Screening: : Patient negative for fever greater than or equal to 101.5 degrees Fahrenheit, and additional compatible Ebola Virus Disease symptoms Patient denies exposure to infectious person Patient denies travel to an Ebola-affected area in the 21 days before illness onset. Screenin:29 Abuse screen: Denies threats or abuse. Denies injuries from another. Nutritional hj screening: No deficits noted. Tuberculosis screening: No symptoms or risk factors identified. Fall Risk None identified. Assessment: 16:11 General: Appears in no apparent distress. uncomfortable, Behavior is calm, cooperative, hj appropriate for age. Pain: Denies pain. Neuro: Level of Consciousness is awake, alert, obeys commands. Cardiovascular: Capillary refill < 3 seconds Patient's skin is warm and dry. Cardiovascular: Rhythm is sinus tachycardia. Respiratory: Airway is patent Respiratory effort is even, unlabored, Respiratory pattern is regular, symmetrical, Breath sounds are clear. GI: No signs and/or symptoms were reported involving the gastrointestinal system. : No signs and/or symptoms were reported regarding the genitourinary system. EENT: No signs and/or symptoms were reported regarding the EENT system. Derm: No signs and/or symptoms reported regarding the dermatologic system. Musculoskeletal: No signs and/or symptoms reported regarding the musculoskeletal system. 16:23 Reassessment: awaiting results and POC: Patient states feeling better. Patient states hj symptoms have improved. Vital Signs: 15:28 BP 126 / 74; Pulse 140; Resp 18; Temp 98.1(TE); Pulse Ox 100% on R/A; Weight 70.31 kg; hj Height 5 ft. 4 in. (162.56 cm); 16:10 BP 117 / 70; Pulse 117; Resp 18; Pulse Ox 100% on 2 lpm NC; hj 15:28 Body Mass Index 26.61 (70.31 kg, 162.56 cm) hj Thomas Coma Score: 15:29 Eye Response: to pain(2). Verbal Response: confused(4). Motor Response: localizes hj pain(5). Total: 11. ED Course: 15:18 Patient arrived in ED. hj 15:23 George Rojas PA is PHCP. jr8 15:23 Richard Peters MD is Attending Physician. jr8 15:26 Triage completed. hj 15:30 Arm band placed on right wrist. hj 15:31 Coy Bruno, CLAUDIA is Primary Nurse. hj 15:31 Patient has correct armband on for positive identification. Placed in gown. Bed in low hj position. Call light in reach. Side rails up X2. Seizure precautions initiated. 15:44 Initial lab(s) drawn, by ED staff, sent to lab. Inserted saline lock: 22 gauge in right iw hand, using aseptic technique. Blood collected. IV inserted by DANISH Vazquez Missed attempt(s): 20 gauge in left antecubital area. Bleeding controlled, band aid applied, catheter tip intact. 16:31 EKG done, by accessibility lift technician. reviewed by George PENG. 3 17:03 Srinivas German MD is Referral Physician. jr8 17:23 No provider procedures requiring assistance completed. IV discontinued, intact, hj bleeding controlled, No redness/swelling at site. Pressure dressing applied. Administered Medications: 15:23 Drug: Ativan 2 mg Route: IVP; Site: left hand; hj 15:38 Follow up: Response: No adverse reaction; Anxiety decreased hj 15:37 Drug: NS 0.9% 1000 ml Route: IV; Rate: 1000 ml; Site: right hand; hj 17:27 Follow up: IV Status: Completed infusion; IV Intake: 1000ml hj Intake: 17:27 IV: 1000ml; Total: 1000ml. Outcome: 17:06 Discharge ordered by . jr8 17:24 Discharged to home via wheelchair, with family. hj 17:24 Condition: stable 17:24 Discharge instructions given to patient, family, Instructed on discharge instructions, follow up and referral plans. Demonstrated understanding of instructions, follow-up care. 17:24 Patient left the ED. Signatures: Lashawn Jimenez, RN RN George Araujo PA PA [facility] Coy Bruno RN RN hj Montes, Shakira 3
--- NOTE | 2018-10-13 17:07 | EDPHYS ---
Physician Documentation [facility] Name: Heather Hope Age: 27 yrs Sex: Female : 1990 Arrival Date: 10/13/2018 Time: 15:18 Bed 2 Private MD: ED Physician Richard Peters HPI: 10/13 16:23 This 27 yrs old Female presents to ER via EMS with complaints of Probable jr8 Seizure, Altered Mental Status. 16:23 Seizure onset: just prior to arrival. Context: occurred at home, outdoors. EMS care: IV jr8 fluids. Current symptoms: agitation . It is unknown whether or not the patient has had similar symptoms in the past. It is unknown whether or not the patient has recently seen a physician. EMS called to patient possibly seizing outside her home. Per EMS patient was not seizing upon arrival. Stated that she was combative and with altered mentation. Would somewhat follow commands but not respond to them . 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 - Social history:: Smoking status: unknown Patient/guardian denies using. - Ebola Screening: : Patient negative for fever greater than or equal to 101.5 degrees Fahrenheit, and additional compatible Ebola Virus Disease symptoms Patient denies exposure to infectious person Patient denies travel to an Ebola-affected area in the 21 days before illness onset. ROS: 16:23 Unable to obtain ROS due to altered mental status. jr8 Exam: 16:23 Eyes: Pupils equal round and reactive to light, extra-ocular motions intact. Lids and jr8 lashes normal. Conjunctiva and sclera are non-icteric and not injected. Cornea within normal limits. Periorbital areas with no swelling, redness, or edema. ENT: Nares patent. No nasal discharge, no septal abnormalities noted. Tympanic membranes are normal and external auditory canals are clear. Oropharynx with no redness, swelling, or masses, exudates, or evidence of obstruction, uvula midline. Mucous membranes moist. Neck: Trachea midline, no thyromegaly or masses palpated, and no cervical lymphadenopathy. Supple, full range of motion without nuchal rigidity, or vertebral point tenderness. No Meningismus. Cardiovascular: Regular rate and rhythm with a normal S1 and S2. No gallops, murmurs, or rubs. Normal PMI, no JVD. No pulse deficits. Respiratory: Lungs have equal breath sounds bilaterally, clear to auscultation and percussion. No rales, rhonchi or wheezes noted. No increased work of breathing, no retractions or nasal flaring. Abdomen/GI: Soft, non-tender, with normal bowel sounds. No distension or tympany. No guarding or rebound. No evidence of tenderness throughout. Back: No spinal tenderness. No costovertebral tenderness. Full range of motion. Skin: Warm, dry with normal turgor. Normal color with no rashes, no lesions, and no evidence of cellulitis. MS/ Extremity: Pulses equal, no cyanosis. Neurovascular intact. Full, normal range of motion. Neuro: Awake. Not oriented to person, place, time, event. Motor strength 5/5 in all extremities. Sensory grossly intact. 16:42 ECG was reviewed by the Attending Physician. [facility] Vital Signs: 15:28 BP 126 / 74; Pulse 140; Resp 18; Temp 98.1(TE); Pulse Ox 100% on R/A; Weight 70.31 kg; hj Height 5 ft. 4 in. (162.56 cm); 16:10 BP 117 / 70; Pulse 117; Resp 18; Pulse Ox 100% on 2 lpm NC; hj 15:28 Body Mass Index 26.61 (70.31 kg, 162.56 cm) Thomas Coma Score: 15:29 Eye Response: to pain(2). Verbal Response: confused(4). Motor Response: localizes hj pain(5). Total: 11. MDM: 15:23 Patient medically screened. [facility] 16:23 Data reviewed: vital signs, nurses notes, lab test result(s). Data interpreted: Pulse 8 oximetry: on room air is 100 %. Interpretation: normal. Counseling: I had a detailed discussion with the patient and/or guardian regarding: the historical points, exam findings, and any diagnostic results supporting the discharge/admit diagnosis, lab results, the need for outpatient follow up, a family practitioner, to return to the emergency department if symptoms worsen or persist or if there are any questions or concerns that arise at home. ED course: After ativan patient responsive and alert to person, place, time, event. Initially upon arrival was fighting us and could somewhat follow commands but would not verbally respond . 17:01 ED course: Patient still A\T\O x 4 after medication. Feeling much better. No acute lab [facility] findings. Will have her f/u with Dr. German who is her neurologist . 10/13 15:23 Order name: Acetaminophen; Complete Time: 16:44 10/13 15:23 Order name: Basic Metabolic Panel; Complete Time: 16:44 10/13 15:23 Order name: CBC with Diff; Complete Time: 16:10/13 15:23 Order name: ETOH Level; Complete Time: 16:44 10/13 15:23 Order name: Hepatic Function; Complete Time: 16:44 10/13 15:23 Order name: PT-INR; Complete Time: 16:10/13 15:23 Order name: Ptt, Activated; Complete Time: 16:10/13 15:23 Order name: Salicylate; Complete Time: 16:10/13 15:23 Order name: Urine Drug Screen; Complete Time: 16:10/13 15:23 Order name: EKG; Complete Time: 15:24 10/13 15:53 Order name: Urine Dipstick--Ancillary (enter results); Complete Time: 16: 10/13 15:53 Order name: Urine --Ancillary (enter results); Complete Time: 16: 10/13 15:23 Order name: Urine Test (obtain specimen); Complete Time: 15:10/13 15:23 Order name: EKG - Nurse/Tech; Complete Time: 15:10/13 15:23 Order name: IV Saline Lock; Complete Time: 15:44 10/13 15:23 Order name: Labs collected and sent; Complete Time: 15:10/13 15:23 Order name: Urine Dipstick-Ancillary (obtain specimen); Complete Time: 15:58 EC:42 Rate is 126 beats/min. Rhythm is regular, Sinus tachycardia. QRS Clarkia is Normal. MD jr8 interval is normal at 150 msec. QRS interval is normal at 80 msec. QT interval is normal at 411 msec. No Q waves. T waves are Inverted in leads III, V1, V2. T waves are Flattened in leads V3, V4, V5, V6. No ST changes noted. Clinical impression: Sinus tachycardia and Non specific T wav abnormality to anterolateral leas . Interpreted by me. Reviewed by me. Administered Medications: 15:23 Drug: Ativan 2 mg Route: IVP; Site: left hand; 15:38 Follow up: Response: No adverse reaction; Anxiety decreased 15:37 Drug: NS 0.9% 1000 ml Route: IV; Rate: 1000 ml; Site: right hand; 17:27 Follow up: IV Status: Completed infusion; IV Intake: 1000ml Disposition: 18:40 Co-signature as Attending Physician, Richard Peters MD. ma2 Disposition: 10/13/18 17:06 Discharged to Home. Impression: Nonepileptic Seizure . - Condition is Stable. - Discharge Instructions: Nonepileptic Seizures. - Medication Reconciliation Form, Thank You Letter, Antibiotic Education, Prescription Opioid Use form. - Follow up: Srinivas German MD; When: 5 - 6 days; Reason: Recheck today's complaints, Continuance of care, Re-evaluation by your physician. - Problem is new. - Symptoms have improved. Signatures: Dispatcher [employer] EDMS George Rojas PA PA 8 Coy Bruno RN RN Richard Peters MD MD ma2 Corrections: (The following items were deleted from the chart) 15:57 15:23 Straight Cath ordered. [facility] 17:06 17:06 10/13/2018 17:06 Discharged to Home. Impression: Non epileptic Seizure . jr Condition is Stable. Forms are Medication Reconciliation Form, Thank You Letter, Antibiotic Education, Prescription Opioid Use. Follow up: Srinivas German; When: 5 - 6 days; Reason: Recheck today's complaints, Continuance of care, Re-evaluation by your physician. Problem is new. Symptoms have improved. [facility] 17:24 17:06 10/13/2018 17:06 Discharged to Home. Impression: Nonepileptic Seizure . Condition hj is Stable. Discharge Instructions: Nonepileptic Seizures. Forms are Medication Reconciliation Form, Thank You Letter, Antibiotic Education, Prescription Opioid Use. Follow up: Srinivas German; When: 5 - 6 days; Reason: Recheck today's complaints, Continuance of care, Re-evaluation by your physician. Problem is new. Symptoms have improved. jr8
[2018-10-13 17:44] VITALS: TEMP 98.1; O2SAT 100
[2018-10-13 17:46] VITALS: BP 117/70
== END 2018-10-13 17:24 | disposition home or self-care (01) ==
LOC: ER 15:17
DX: R56.9 Unspecified convulsions (principal); G40.909 Epilepsy, unspecified, not intractable, without status epilepticus
CPT/HCPCS: 36415; 80048; 80076; 80307; 80320; 80329; 81003; 81025; 85025; 85610; 85730; 93005; 96361; 96374; 99284; J7030

== ENCOUNTER 2018-12-23 17:33 | Emergency (ER) | payer OTHER ==
--- OUTSIDE RECORDS SUMMARY | 2018-12-23 17:35 | XMS REPORT | Clinical Summary ---
:1990 Author Organization [facility] Address [address] [place] [address] Care Team Providers Name Role Phone Unavailable Primary Care Provider Unavailable Allergies No Known Allergies Medications Medication Sig Dispensed Refills Start Date End Date Status levETIRAcetam Take 1 tablet 60 tablet 2 05/19/2017 Active (KEPPRA) 1000 MG (1,000 mg tablet total) by mouth 2 (two) times daily. vitamin Take 1 tablet 90 tablet 3 05/20/2017 Active w/[id number] by mouth daily. ( PLUS) 27 mg [...] Not on file Results Not on fileafter 12/22/2017 Insurance Payer Benefit Plan / Group Subscriber ID Type Phone Address [place]ICA[place] xxxxxxxxx Medicaid Advance Directives For more information, please contact:[address] [phone] Code Status Date Activated Date Inactivated Comments Full Code 05/14/2017 10:10 PM 05/19/2017 2:55 PM This code status was determined by: Patient
--- OUTSIDE RECORDS SUMMARY | 2018-12-23 17:36 | XMS REPORT ---
:1990 [facility] Address [address] [place] [address] Care Team Providers Name Role Phone MILES [...] Comments Text Results Atomic Results Result Comments LIPID PROFILE (CORONARY RISK) 2018-12-08 14:27:00 Test Item Value Reference Range Comments TRIGLYCERIDES (test code=TRIG) 39 MG/DL 30-200 CHOLESTEROL (test code=CHOL) 139 MG/DL 122-200 CHOLESTEROL/HDL RATIO (test 2.2 1.5-4.5 1. Initial classification based code=CHOLHDL) on total cholesterol: <200 mg/dl Desirable cholesterol 200-239 mg/dl Borderline high risk cholesterol >240 mg/dl High risk cholesterol2. Initial classification based on LDL cholesterol: <130 mg/dl Desirable LDL cholesterol 130-159 mg/dl Borderline high risk LDL >159 mg/dl High risk LDL cholesterol3. HDL < 35 mg/dl represent increased CHD risk; HDL > 60 mg/dl represent decreased CHD risk.4. Chol/HDL > 5.0 represent increased CHD risk in men; Chol/HDL > 4.5 represent increased CHD risk in women. HDL CHOLESTEROL (test code=HDL) 63 MG/DL 40-60 LIPOPROTEIN LDL (test code=LDL) 68 MG/DL 62-130 LIPOPROTEIN VLDL (test code=VLDL) 8 MG/DL 3-60 RAPID PLASMA [id number] 10:31:00 Test Item Value Reference Range Comments RAPID PLASMA REAGIN (test code=RPR) Nonreactive Nonreactive GLYCOSYLATED HEMOGLOBIN (HA1C)2018-12-07 10:05:00 Test Item Value Reference Range Comments GLYCOSYLATED HEMOGLOBIN (HA1C) (test 5.8 % TOT HB 4.5-6.2 code=GLYHGB) [id number] 15:31:00 Test Item Value Reference Range Comments ACETAMINOPHEN (test < 1 MCG/ML 10-30 Acetaminophen is possibly code=ACET) toxic at levels of: 1. more than 150 MCG/ML 4 hours post ingestion. 2. more than 50 MCG/ML 12 hours post ingestion. [id number] 15:31:00 Test Item Value Reference Range Comments SALICYLATE (test code=BOSSMAN) < 3 MG/DL 0-20 Reference Range: Analgesic.................. < 10 mg/dl Therapeutic................ 15-20 mg/dl Mild Toxicity.............. > 30 mg/dl Severe Toxicity............ > 60 mg/dl UA RFLX [id number] 14:18:00 Test Item Value Reference Range Comments UA COLOR (test code=COLU) YELLOW YELLOW UA APPEARANCE (test code=APPU) CLEAR CLEAR UA GLUCOSE DIPSTICK (test code=DGLUU) NEGATIVE mg/dL NEGATIVE UA BILIRUBIN DIPSTICK (test code=BILU) NEGATIVE NEGATIVE UA KETONE DIPSTICK (test code=KETU) NEGATIVE mg/dL NEGATIVE UA SPECIFIC GRAVITY (test code=SGU) 1.010 1.001-1.035 UA BLOOD DIPSTICK (test code=RIVER) 4+ NEGATIVE UA PH DIPSTICK (test code=MARY) 8.0 5.5-7.0 UA PROTEIN DIPSTICK (test code=PROU) NEGATIVE mg/dL NEGATIVE UA UROBILINOGEN DIPSTICK (test code=URO) NORMAL mg/dL NORMAL UA NITRITE DIPSTICK (test code=KIET) NEGATIVE NEGATIVE UA LEUKOCYTE ESTERASE DIPSTICK (test NEGATIVE NEGATIVE code=LEUU) UA COMMENT (test code=COMU) VOLUME 10-12 ML URINE SPECIMEN DESCRIPTION (test Clean Catch code=UASPEC) UA [id number] 14:18:00 Test Item Value Reference Range Comments UA WBC (test code=WBCU) < 10 #/hpf <10 UA RBC (test code=RBCU) 0-2 #/hpf NONE SEEN UA BACTERIA (test code=BACU) RARE #/hpf NONE SEEN UA SQUAMOUS CELLS (test code=SQU) 0 - 20 #/lpf <100 UA MUCUS (test code=MUCU) 1+ #/lpf NONE SEEN BASIC METABOLIC [id number] 14:16:00 Test Item Value Reference Range Comments SODIUM (test code=NA) 140 MMOL/L 133-145 POTASSIUM (test code=K) 4.3 MMOL/L 3.6-5.2 CHLORIDE (test code=CL) 104 MMOL/L 100-108 CARBON DIOXIDE (test 22 MMOL/L 22-32 code=CO2) GLUCOSE (test code=GLU) 91 MG/DL 65-99 Results of this assay method may be falsely depressed orelevated if patient is taking sulfasalazine. BLOOD UREA NITROGEN (test 10 MG/DL 6-20 code=BUN) GLOMERULAR FILTRATION RATE 131 71-165 Reporting units: (test code=GFR) mL/min/1.73m\S\2 (Modified MDRD Formula) CREATININE (test code=CREAT) 0.55 MG/DL 0.60-1.00 CALCIUM (test code=CA) 9.4 MG/DL 8.7-10.5 HEPATIC FUNCTION [id number] 14:16:00 Test Item Value Reference Range Comments TOTAL PROTEIN (test code=PROT) 7.6 G/DL 6.4-8.2 ALBUMIN (test code=ALB) 4.2 G/DL 3.4-5.0 GLOBULIN (test code=GLOB) 3.4 G/DL 1.5-3.8 ALBUMIN/GLOBULIN RATIO (test 1.2 1.1-2.2 code=A/G) BILIRUBIN TOTAL (test 0.5 MG/DL 0.0-1.0 code=BILT) BILIRUBIN DIRECT (test 0.2 MG/DL 0.0-0.3 code=BILD) BILIRUBIN INDIRECT (test 0.3 MG/DL 0.0-0.7 code=BILIND) SGOT/AST (test code=AST) 25 Units/L 15-37 Results of this assay method may be falsely depressed orelevated if patient is taking sulfasalazine. SGPT/ALT (test code=ALT) 43 Units/L 30-65 Results of this assay method may be falsely depressed orelevated if patient is taking sulfasalazine. ALKALINE PHOSPHATASE TOTAL 74 Units/L 50-136 (test code=ALKP) [id number] 14:16:00 Test Item Value Reference Range Comments CK (test code=CKT) 87 Units/L 26-192 [id number] 14:16:00 Test Item Value Reference Range Comments ALCOHOL (test code=ALC) < 3 MG/DL 0-10 0 - 10: Should be interpreted as NEGATIVE. 11 - 50: None to mild euphoria. 51 - 100: Mild influence on vision and dark adaptation. > 80: Legal intoxication; Depression of [place] K[place] REO; Increasing degree of poisoning. > 400: Fatalities reported. Results are for medical purposes only and not forlegal or employment evaluative purposes. BASIC METABOLIC [id number] 14:09:00 Test Item Value Reference Range Comments SODIUM (test code=NA) 140 MMOL/L 133-145 POTASSIUM (test code=K) 4.3 MMOL/L 3.6-5.2 CHLORIDE (test code=CL) 104 MMOL/L 100-108 CARBON DIOXIDE (test 22 MMOL/L 22-32 code=CO2) GLUCOSE (test code=GLU) 91 MG/DL 65-99 Results of this assay method may be falsely depressed orelevated if patient is taking sulfasalazine. BLOOD UREA NITROGEN (test 10 MG/DL 6-20 code=BUN) GLOMERULAR FILTRATION RATE 131 71-165 Reporting units: (test code=GFR) mL/min/1.73m\S\2 (Modified MDRD Formula) CREATININE (test code=CREAT) 0.55 MG/DL 0.60-1.00 CALCIUM (test code=CA) 9.4 MG/DL 8.7-10.5 HEPATIC FUNCTION [id number] 14:09:00 Test Item Value Reference Range Comments TOTAL PROTEIN (test code=PROT) G/DL 6.4-8.2 ALBUMIN (test code=ALB) G/DL 3.4-5.0 GLOBULIN (test code=GLOB) G/DL 1.5-3.8 ALBUMIN/GLOBULIN RATIO (test code=A/G) 1.1-2.2 BILIRUBIN TOTAL (test code=BILT) MG/DL 0.0-1.0 BILIRUBIN DIRECT (test code=BILD) MG/DL 0.0-0.3 SGOT/AST (test code=AST) Units/L 15-37 SGPT/ALT (test code=ALT) Units/L 30-65 ALKALINE PHOSPHATASE TOTAL (test code=ALKP) Units/L 50-136 [id number] 14:09:00 Test Item Value Reference Range Comments CK (test code=CKT) Units/L 26-192 [id number] 14:09:00 Test Item Value Reference Range Comments ALCOHOL (test code=ALC) MG/DL 0-10 LACTIC ACID [id number] 13:50:00 Test Item Value Reference Range Comments LACTIC ACID POC (test 0.97 MMOL/L 0.90-1.70 Performed by certified code=LACTP) mill control operator at [facility] [id number] 13:48:00 Test Item Value Reference Range Comments GLUBED (test code=GLUBED) 88 MG/DL 65-99 Performed by certified mill control operator at [facility] DRUG OF ABUSE SCREEN [id number] 13:43:00 Test Item Value Reference Range Comments UR COCAINE (test NEGATIVE NEGATIVE code=COCAU) UR MDMA (test NEGATIVE NEGATIVE code=MDMAQLU) UR CANNABINOIDS (test NEGATIVE NEGATIVE code=CANU) UR AMPHETAMINE (test NEGATIVE NEGATIVE code=AMPHU) UR BARBITURATE QUAL (test NEGATIVE NEGATIVE code=BARBQLU) UR BENZODIAZEPINE (test NEGATIVE NEGATIVE code=BENZU) UR OPIATES QUAL (test NEGATIVE NEGATIVE code=OPIAQLU) UR PHENCYCLIDINE (PCP) NEGATIVE NEGATIVE Urine Drug Abuse Screen provides (test code=PHENCU) preliminary results thatmay be confirmed by alternate methods (i.e., GC/MS) at [facility]. Results of screen may not be usedin criminal justice, job performance or professionalcredential review, or custody issues. Negative [place] ng/ml ----- Cocaine 300 Methamphetamine (Ecstacy) 500 Cannabinoids (THC) 50 Amphetamine 1000 Barbiturates 200 Benzodiazepines 200 Opiates 300 Phencyclidine (PCP) 25 UR HCG [id number] 13:39:00 Test Item Value Reference Range Comments UR HCG QUAL (test NEGATIVE NEGATIVE False negatives may occur when code=HCGQLU) levels of hCGare below 20 mIU/ml. When is still suspected, a new specimenshould be obtained after 48 hours and re-tested.If waiting 48 hours is not medically advisable,the test result should be confirmed using aquantitative hCG assay. UA RFLX [id number] 13:38:00 Test Item Value Reference Range Comments UA COLOR (test code=COLU) YELLOW YELLOW UA APPEARANCE (test code=APPU) CLEAR CLEAR UA GLUCOSE DIPSTICK (test code=DGLUU) NEGATIVE mg/dL NEGATIVE UA BILIRUBIN DIPSTICK (test code=BILU) NEGATIVE NEGATIVE UA KETONE DIPSTICK (test code=KETU) NEGATIVE mg/dL NEGATIVE UA SPECIFIC GRAVITY (test code=SGU) 1.010 1.001-1.035 UA BLOOD DIPSTICK (test code=RIVER) 4+ NEGATIVE UA PH DIPSTICK (test code=MARY) 8.0 5.5-7.0 UA PROTEIN DIPSTICK (test code=PROU) NEGATIVE mg/dL NEGATIVE UA UROBILINOGEN DIPSTICK (test code=URO) NORMAL mg/dL NORMAL UA NITRITE DIPSTICK (test code=KIET) NEGATIVE NEGATIVE UA LEUKOCYTE ESTERASE DIPSTICK (test NEGATIVE NEGATIVE code=LEUU) UA COMMENT (test code=COMU) VOLUME 10-12 ML URINE SPECIMEN DESCRIPTION (test Clean Catch code=UASPEC) UA [id number] 13:38:00 Test Item Value Reference Range Comments UA WBC (test code=WBCU) #/hpf <10 UA RBC (test code=RBCU) #/hpf NONE SEEN UA SQUAMOUS CELLS (test code=SQU) #/lpf <100 UA RFLX [id number] 13:38:00 Test Item Value Reference Range Comments UA COLOR (test code=COLU) YELLOW YELLOW UA APPEARANCE (test code=APPU) CLEAR CLEAR UA GLUCOSE DIPSTICK (test code=DGLUU) NEGATIVE mg/dL NEGATIVE UA BILIRUBIN DIPSTICK (test code=BILU) NEGATIVE NEGATIVE UA KETONE DIPSTICK (test code=KETU) NEGATIVE mg/dL NEGATIVE UA SPECIFIC GRAVITY (test code=SGU) 1.010 1.001-1.035 UA BLOOD DIPSTICK (test code=RIVER) 4+ NEGATIVE UA PH DIPSTICK (test code=MARY) 8.0 5.5-7.0 UA PROTEIN DIPSTICK (test code=PROU) NEGATIVE mg/dL NEGATIVE UA UROBILINOGEN DIPSTICK (test code=URO) NORMAL mg/dL NORMAL UA NITRITE DIPSTICK (test code=KIET) NEGATIVE NEGATIVE UA LEUKOCYTE ESTERASE DIPSTICK (test NEGATIVE NEGATIVE code=LEUU) UA COMMENT (test code=COMU) VOLUME 10-12 ML URINE SPECIMEN DESCRIPTION (test Clean Catch code=UASPEC) UA [id number] 13:38:00 Test Item Value Reference Range Comments UA WBC (test code=WBCU) #/hpf <10 UA RBC (test code=RBCU) #/hpf NONE SEEN UA SQUAMOUS CELLS (test code=SQU) #/lpf <100 CBC W/AUTO [id number] 13:26:00 Test Item Value Reference Range Comments WHITE BLOOD CELL (test code=WBC) 10.42 x10 3/uL 4.80-10.80 RED BLOOD CELL (test code=RBC) 4.71 x10 6/uL 4.2-5.4 HEMOGLOBIN (test code=HGB) 11.3 G/DL 12.0-16.0 HEMATOCRIT (test code=HCT) 35.7 % 37-47 MEAN CELL VOLUME (test code=MCV) 75.8 FL 81-99 MEAN CELL HGB (test code=MCH) 24.0 PG 27-31 MEAN CELL HGB CONCENTRATION (test code=MCHC) 31.7 G/DL 33-37 RED CELL DISTRIBUTION WIDTH (test code=RDW) 15.4 % 11.5-14.5 PLATELET COUNT (test code=PLT) 258 x10 3/uL 150-450 MEAN PLATELET VOLUME (test code=MPV) 10.9 FL 7.4-10.4 NEUTROPHIL % (test code=NT%) 72.0 % 42-86 LYMPHOCYTE % (test code=LY%) 17.9 % 24-44 MONOCYTE % (test code=MO%) 8.4 % 0.0-4.0 EOSINOPHIL % (test code=EO%) 1.2 % 0.0-2.7 BASOPHIL % (test code=BA%) 0.5 % 0.0-0.5 NEUTROPHIL # (test code=NT#) 7.51 x10 3/uL 1.8-7.7 LYMPHOCYTE # (test code=LY#) 1.86 x10 3/uL 1.0-4.8 MONOCYTE # (test code=MO#) 0.88 x10 3/uL 0.0-0.8 EOSINOPHIL # (test code=EO#) 0.12 x10 3/uL 0.0-0.5 BASOPHIL # (test code=BA#) 0.05 x10 3/uL 0.0-0.2 [id number] 19:07:00 Test Item Value Reference Range Comments LEVETIRACETAM (test 28.7 ug/mL 10.0-40.0 This test was developed and its code=LEVTAM) performance characteristicsdetermined by [employer]. It has not been cleared orapproved by the Food and Drug Administration.Performed At: [address] [id number] Dias MD Ph:[phone] BASIC METABOLIC [id number] 04:58:00 Test Item Value Reference Range Comments [...] 0.60-1.00 CALCIUM (test code=CA) 8.9 MG/DL 8.7-10.5 [id number] 04:58:00 Test Item Value Reference Range Comments MAGNESIUM (test code=MAG) 1.9 MG/DL 1.8-2.4 CBC W/AUTO [id number] 04:08:00 Test Item Value Reference Range Comments [...] X10 3/uL 0.0-0.2 - MRI BRAIN W/O [id number] 13:51:00 Patient Name: SAHRA NETTLES TIERRA Unit No: [id number] EXAMS: CPT CODE: [id number] MRI BRAIN W/O CONTRAST [id number] Reason: sz INDICATION: Seizure COMPARISON: CT brain, [...] until the patient can hold still. at 135 Reported and signed by: Lashell Anderson MD CC: Fanny Knowles DO; Jacob Gutierrez MD Technologist: Andre Self MRI Trscrpt Dt/ (9151)[id number] Orig Print D/T: S: 09/17/2018 (8707) [facility] CntNAME: SAHRA NETTLES [address] [facility] PHYS: Fe[place] [address] : 1990 AGE: 27 SEX: F LOC: D.D313 1 PHONE #: [phone] EXAM DATE: 09/17/2018 STATUS: ADM IN FAX #: RAD NO: DC Dt: PAGE 1 Signed [id number] 07:25:00 Test Item Value Reference Range Comments PROLACTIN (test code=PROLAC) 24.6 ng/mL 4.8-23.3 Performed At: [facility] [id number] Sb Man MD Ph:[phone] UA RFLX MICROSCOPIC [id number] 19:02:00 Test Item Value Reference Range Comments [...] met URINE SOURCE: Clean CatchUA RFLX MICROSCOPIC [id number] 18:56:00 Test Item Value Reference Range Comments [...] CULTURE NEEDED? (test code=UACULT) URINE SOURCE: Clean [id number] 15:56:00 Test Item Value Reference Range Comments CK (test code=CKT) 34 Units/L 26-192 BASIC METABOLIC [id number] 12:57:00 Test Item Value Reference Range Comments [...] 0.60-1.00 CALCIUM (test code=CA) 8.6 MG/DL 8.7-10.5 [id number] 12:57:00 Test Item Value Reference Range Comments CK (test code=CKT) 32 Units/L 26-192 CBC W/AUTO [id number] 12:33:00 Test Item Value Reference Range Comments [...] 0.0 X10 3/uL 0.0-0.2 TOTAL IRON BINDING [id number] 05:50:00 Test Item Value Reference Range Comments SERUM IRON (test code=IRON) 17 MCG/DL 50-170 TOTAL IRON BINDING CAPACITY (test code=TIBC) 363 MCG/DL 280-400 IRON SATURATION (test code=FESAT) 5 % 15-50 [id number] 05:50:00 Test Item Value Reference Range Comments FERRITIN (test code=LULI) 11 NG/ML 3-105 HEPATIC FUNCTION [id number] 05:32:00 Test Item Value Reference Range Comments [...] 50-136 (test code=ALKP) - CT HEAD/BRAIN W/O [id number] 20:19:00 Patient Name: SAHRA NETTLES Unit No: [id number] EXAMS: CPT CODE: [id number] CT HEAD/BRAIN W/O CONT 19694 Reason: seizure TECHNIQUE: Contiguous 5 mm images [...] Keanu Vázquez MD; Cristiane Heath Technologist: Edel BURNS Trscrpt Dt / (2018)Tristan Orig Print D/T: S: 07/2018 (2021) CTDI: DLP: [facility] NAME: SAHRA NETTLES N[address] [id number] [facility] PHYS: NGA. - Keanu Váz[place] [address] : 1990 AGE: 27 SEX: F LOC: RichNER PHONE#: [phone] EXAM DATE: 07/2018 STATUS: REG ER FAX #: RAD NO: DC Dt: PAGE 1 Signed Report- XR CHEST 1 [id number] 20:18:00 Patient Name: SAHRA NETTLES Unit No: [id number] EXAMS: CPT CODE: [id number] XR CHEST 1 V 08136 Reason: screen for pneumonia FINDINGS: Single view ofthe chest shows normal heart size and pulmonary vasculature. The lungs are clear bilaterally. There is no focal infiltrate, pleural effusion or pneumothorax. IMPRESSION: No acute cardiopulmonary findings at 2018 Reported and signed by : Lashell Jimenez MD CC: Keanu Vázquez MD; Cristiane Heath Technologist: Edel Cade CT Trscrpt Dt/ (2017)[email or web address] Orig PrintD/T: S: 09/14/2018 (2020) [facility] NAME: SAHRA NETTLES NOVEM[address] [id number] [facility] PHYS: NGA. - Keanu Váz[place] [address] : 1990 AGE: 27 SEX: F LOC: RichNER PHONE #: [phone] EXAM DATE: 09/14/2018 STATUS: REG ER FAX #: RAD NO: DC Dt: PAGE 1 Signed ReportHCG SERUM [id number] 20:04:00 Test Item Value Reference Range Comments HCG SERUM QUAL (test NEGATIVE NEGATIVE False negatives may occur when code=HCGQL) levels of hCGare below 10 mIU/ml. When is still suspected, a new specimenshould be obtained after 48 hours and re-tested.If waiting 48 hours is not medically advisable,the test result should be confirmed using aquantitative hCG assay. BASIC METABOLIC [id number] 19:51:00 Test Item Value Reference Range Comments [...] (test code=CA) 9.3 MG/DL 8.7-10.5 CBC W/AUTO [id number] 19:46:00 Test Item Value Reference Range Comments [...] (test code=BA#) 0.05 x10 3/uL 0.0-0.2 BLOOD [id number] 10:00:00 Test Item Value Reference Range Comments CULTURE (BEAKER) (test ceuh=2076) No growth in 5 days HCG, QUANTITATIVE, [id number] 15:37:00 Test Item Value Reference Range Comments GONADOTROPIN, CHORIONIC (HCG) QUANT (BEAKER) 51897 mIU/mL 0-10 (test pkng=300) Non- Females: <10 mIU/mL Females: Gestation Age Reference Range(mIU/mL) 0.2-1 Week 5-50 1-2 Weeks 50-500 2-3 Weeks 100-5,000 3-4Weeks 500-10,000 4 -5 Weeks 1,000-50,000 5-6 Weeks 10,000-100,000 6-8 Weeks 15,000-200,000 2-3 Months 10,000-100,000COMPREHENSIVE METABOLIC [id number] 15:10:00 Test Item Value Reference Range Comments TOTAL PROTEIN (BEAKER) 7.0 gm/dL 6.0-8.3 (test bdpf=261) ALBUMIN (BEAKER) (test 3.9 g/dL 3.5-5.0 sjfi=9905) ALKALINE PHOSPHATASE 50 U/L 40-150 (BEAKER) (test rwkd=118) BILIRUBIN TOTAL (BEAKER) 0.5 mg/dL 0.2-1.2 (test ydrm=785) SODIUM (BEAKER) (test 140 meq/L 136-145 rpxq=450) POTASSIUM (BEAKER) (test 3.4 meq/L 3.5-5.1 giri=040) CHLORIDE (BEAKER) (test 107 meq/L 98-107 emqg=252) CO2 (BEAKER) (test 21 meq/L 22-29 clvn=603) BLOOD UREA NITROGEN 6 mg/dL 7-21 (BEAKER) (test tshx=741) CREATININE (BEAKER) (test 0.54 mg/dL 0.57-1.25 fevq=782) GLUCOSE RANDOM (BEAKER) 76 mg/dL 70-105 (test hrrs=512) CALCIUM (BEAKER) (test 9.2 mg/dL 8.4-10.2 sdbw=948) AST (SGOT) (BEAKER) (test 57 U/L 5-34 voim=332) ALT (SGPT) (BEAKER) (test 84 U/L 6-55 fbhu=390) EGFR (BEAKER) (test 135 mL/min/1.73 sq ESTIMATED GFR IS NOT rtkd=5760) m ACCURATE CREATININE CLEARANCE IN PREDICTING GLOMERULAR FILTRATION RATE. ESTIMATED GFR IS NOT APPLICABLE FOR DIALYSIS PATIENTS. CBC W/PLT COUNT & AUTO [id number] 14:53:00 Test Item Value Reference Range Comments WHITE BLOOD CELL COUNT (BEAKER) (test ejkz=955) 9.7 K/ L 3.5-10.5 RED BLOOD CELL COUNT (BEAKER) (test vjri=923) 4.31 M/ L 3.93-5.22 HEMOGLOBIN (BEAKER) (test jdir=909) 10.0 GM/DL 11.2-15.7 HEMATOCRIT (BEAKER) (test fwwc=145) 31.9 % 34.1-44.9 MEAN CORPUSCULAR VOLUME (BEAKER) (test vklg=837) 74.0 fL 79.4-94.8 MEAN CORPUSCULAR HEMOGLOBIN (BEAKER) (test 23.2 pg 25.6-32.2 yvvk=234) MEAN CORPUSCULAR HEMOGLOBIN CONC (BEAKER) (test 31.3 GM/DL 32.2-35.5 rkyo=773) RED CELL DISTRIBUTION WIDTH (BEAKER) (test 19.0 % 11.7-14.4 jazi=551) PLATELET COUNT (BEAKER) (test pyur=319) 259 K/CU MM 150-450 MEAN PLATELET VOLUME (BEAKER) (test pkml=074) 9.9 fL 9.4-12.3 NUCLEATED RED BLOOD CELLS (BEAKER) (test 0 /100 WBC 0-0 dxnl=481) NEUTROPHILS RELATIVE PERCENT (BEAKER) (test 70 % etbc=074) LYMPHOCYTES RELATIVE PERCENT (BEAKER) (test 21 % zorg=682) MONOCYTES RELATIVE PERCENT (BEAKER) (test 8 % brry=321) EOSINOPHILS RELATIVE PERCENT (BEAKER) (test 1 % zoho=021) BASOPHILS RELATIVE PERCENT (BEAKER) (test 1 % nost=361) NEUTROPHILS ABSOLUTE COUNT (BEAKER) (test 6.75 K/ L 1.56-6.13 etyd=018) LYMPHOCYTES ABSOLUTE COUNT (BEAKER) (test 2.01 K/ L 1.18-3.74 luew=975) MONOCYTES ABSOLUTE COUNT (BEAKER) (test 0.75 K/ L 0.24-0.36 cbtw=819) EOSINOPHILS ABSOLUTE COUNT (BEAKER) (test 0.07 K/ L 0.04-0.36 lxot=462) BASOPHILS ABSOLUTE COUNT (BEAKER) (test 0.08 K/ L 0.01-0.08 eame=302) IMMATURE GRANULOCYTES-RELATIVE PERCENT (BEAKER) 0 % 0-1 (test hflp=6873) U/S, , FIRST [id number] 07:52:00Reason for exam:-> Reason for exam:->please include [...] 1 day. An embryonic pole is evident. [facility]-rump length measures 0.63 cm, correlating with estimated [...] Garrido Verified Date/Time: 05/17/2017 07:52:37 Reading Location: [facility] C013X Ortho Consult Reading Room PREGNANCY SCREEN, [id number] 05:28:00 Test Item Value Reference Range Comments TEST URINE (BEAKER) (test tmnb=224) Positive MR, BRAIN, WITHOUT [id number] 18:54:00Reason for exam:->Stroke evaluationFINAL REPORT MRI brain [...] Verified Date/Time: 05/15/2017 18 :54:11 Reading Location: [facility] Radiology Reading Room EEG AWAKE AND [id number] 12:08:00Reason for exam:->? nonconvulsive statusDATE OF TEST: 2016DATE OF REPORT 05/15/2017 ACC: [id number] EE Start time: 1034 Stop time: 1054 ICD-10: R56.9CPT Code: [id number]: 26 y/o woman with epilepsy found down [...] recordings.Marika Smith M.D.Neurophysiology FellowSwathi Harper M.D.Neurophysiology Attending [id number] 04:27:00 Test Item Value Reference Range Comments PROCALCITONIN (BEAKER) (test ulwr=9602) 0.17 ng/mL <0.05 SEPSIS RISK (ng/mL)Low: 0.05-0.50Intermediate: 0.51-2.00High: & gt;=[id number] 03:15:00 Test Item Value Reference Range Comments PHOSPHORUS (BEAKER) (test wwbq=573) 3.1 mg/dL 2.3-4.7 [id number] 03:15:00 Test Item Value Reference Range Comments MAGNESIUM (BEAKER) (test xbot=785) 1.9 mg/dL 1.6-2.6 BASIC METABOLIC [id number] 03:15:00 Test Item Value Reference Range Comments SODIUM (BEAKER) (test 139 meq/L 136-145 souq=403) POTASSIUM (BEAKER) (test 3.7 meq/L 3.5-5.1 ffza=954) CHLORIDE (BEAKER) (test 110 meq/L 98-107 swlm=653) CO2 (BEAKER) (test 19 meq/L 22-29 kcwg=062) BLOOD UREA NITROGEN 8 mg/dL 7-21 (BEAKER) (test yjha=563) CREATININE (BEAKER) (test 0.57 mg/dL 0.57-1.25 xwya=552) GLUCOSE RANDOM (BEAKER) 92 mg/dL 70-105 (test qyvt=931) CALCIUM (BEAKER) (test 9.2 mg/dL 8.4-10.2 woxl=913) EGFR (BEAKER) (test 127 mL/min/1.73 sq m ESTIMATED GFR IS NOT ldhc=2114) ACCURATE CREATININE CLEARANCE IN PREDICTING GLOMERULAR FILTRATION RATE. ESTIMATED GFR IS NOT APPLICABLE FOR DIALYSIS PATIENTS. CREATINE KINASE (CK)2017-05-15 03:15:00 Test Item Value Reference Range Comments CREATINE KINASE TOTAL (BEAKER) (test nard=049) 200 U/L 29-200 LACTIC ACID, VENOUS, WHOLE [id number] 03:09:00 Test Item Value Reference Range Comments LACTATE BLOOD VENOUS (2) (BEAKER) (test 0.6 mmol/L 0.5-2.2 pref=5066) Effective 10/17/2015: Units/Reference Range ChangeNew: 0.5-2.2 mmol/L Previous: 5 -20 mg/dLPROTHROMBIN [id number] 03:07:00 Test Item Value Reference Range Comments PROTIME (BEAKER) (test oylm=341) 14.5 seconds 11.7-14.7 INR (BEAKER) (test sddx=502) 1.1 <=5.9 RECOMMENDED COUMADIN/WARFARIN INR THERAPY RANGESSTANDARD DOSE: 2.0 - 3.0 Includes: PROPHYLAXIS forvenous thrombosis, systemic embolization; TREATMENT for venous thrombosis and/or pulmonary embolus.HIGH RISK: Target INR is 2.5-3.5 for patients with mechanical heart valves.CBC W/PLT COUNT & AUTO [id number] 03:00:00 Test Item Value Reference Range Comments WHITE BLOOD CELL COUNT (BEAKER) (test rfih=701) 21.6 K/ L 3.5-10.5 RED BLOOD CELL COUNT (BEAKER) (test nnqu=679) 4.04 M/ L 3.93-5.22 HEMOGLOBIN (BEAKER) (test sxkr=685) 9.3 GM/DL 11.2-15.7 HEMATOCRIT (BEAKER) (test ugqu=448) 30.1 % 34.1-44.9 MEAN CORPUSCULAR VOLUME (BEAKER) (test hacl=419) 74.5 fL 79.4-94.8 MEAN CORPUSCULAR HEMOGLOBIN (BEAKER) (test 23.0 pg 25.6-32.2 zpxv=048) MEAN CORPUSCULAR HEMOGLOBIN CONC (BEAKER) (test 30.9 GM/DL 32.2-35.5 krgg=722) RED CELL DISTRIBUTION WIDTH (BEAKER) (test 19.3 % 11.7-14.4 cedj=988) PLATELET COUNT (BEAKER) (test flrv=869) 250 K/CU MM 150-450 MEAN PLATELET VOLUME (BEAKER) (test kork=796) 10.3 fL 9.4-12.3 NUCLEATED RED BLOOD CELLS (BEAKER) (test 0 /100 WBC 0-0 ircr=419) NEUTROPHILS RELATIVE PERCENT (BEAKER) (test 83 % vout=158) LYMPHOCYTES RELATIVE PERCENT (BEAKER) (test 9 % pfxo=429) MONOCYTES RELATIVE PERCENT (BEAKER) (test 8 % hkhe=820) EOSINOPHILS RELATIVE PERCENT (BEAKER) (test 0 % pdwx=981) BASOPHILS RELATIVE PERCENT (BEAKER) (test 0 % mlzn=391) NEUTROPHILS ABSOLUTE COUNT (BEAKER) (test 17.85 K/ L 1.56-6.13 pjjt=725) LYMPHOCYTES ABSOLUTE COUNT (BEAKER) (test 1.98 K/ L 1.18-3.74 uxtq=662) MONOCYTES ABSOLUTE COUNT (BEAKER) (test 1.62 K/ L 0.24-0.36 bgkc=296) EOSINOPHILS ABSOLUTE COUNT (BEAKER) (test 0.01 K/ L 0.04-0.36 jsws=069) BASOPHILS ABSOLUTE COUNT (BEAKER) (test 0.04 K/ L 0.01-0.08 scak=841) IMMATURE GRANULOCYTES-RELATIVE PERCENT (BEAKER) 1 % 0-1 (test mbuw=5467) RAD, CHEST, 1 VIEW, NON [id number] 01:06:00Reason for exam:->possible infectionShould this be performed at the bedside?->YesFINAL REPORT History: Infection. Comparison: None. Findings: A single view of the chest is submitted. The cardiomediastinal contours are unremarkable. There is no focal consolidation, pneumothorax, large pleural effusion or evidence of overt pulmonary edema. There is no acute bony abnormality. Impression: No acute abnormality. Signed: Kobi Zhu MDRepwali Verified Date/Time: 2016 01:06:06 Reading Location: [address] Reading Room
[2018-12-23 18:21] LABS: Absolute Lymphocytes (CBC) 1.8 K/uL (0.7-4.9); Basophils % 0.9 % (0-1.3); Eosinophils % 1.3 % (0-4.4); Lymphocytes % 23.5 % (15.3-44.8); MPV 8.8 fL (7.6-11.3); RBC Red Blood Cell Count 4.35 M/uL (3.86-4.86)
[2018-12-23 18:25] LABS: Protime INR 1.09
[2018-12-23 18:41] LABS: ALT/SGPT 25 U/L (12-78); AST/SGOT 17 U/L (15-37); Alkaline Phosphatase 66 U/L (45-117); BUN Blood Urea Nitrogen 11 mg/dL (7-18); Bicarbonate 22 mmol/L (21-32); Bilirubin Direct < 0.1 mg/dL (0-0.2); Bilirubin Total 0.2 mg/dL (0.2-1.0); Glucose Level 97 mg/dL (74-106); Potassium 3.7 mmol/L (3.5-5.1); Protein, Total 7.7 g/dL (6.4-8.2); Sodium Level 142 mmol/L (136-145)
[2018-12-23] MEDS ORDERED: LORazepam 2 MG/ML VIAL ONE (19:48)
[2018-12-23] MEDS ORDERED: NA CHLORIDE 0.9% 100 ML IV ONE (20:09)
[2018-12-23] MEDS ORDERED: LEVETIRACETAM 500 MG/5 ML VIAL IV ONE (20:09)
[2018-12-23 20:43] LABS: Barbiturates NEGATIVE (NEGATIVE); Benzodiazepines NEGATIVE (NEGATIVE); Cocaine NEGATIVE (NEGATIVE); METHAMPHETAM NEGATIVE (NEGATIVE); Methadone NEGATIVE (NEGATIVE); Opiates NEGATIVE (NEGATIVE); Phencyclidine NEGATIVE (NEGATIVE); THC Cannibis NEGATIVE (NEGATIVE)
[2018-12-23 20:59] LABS: Urine Blood TRACE (NEG); Urine Glucose NEGATIVE (NEG); Urine Protein TRACE (NEG); Urine Specific Gravity >1.030 (1.005-1.030)
[2018-12-23] MEDS ORDERED: NA CHLORIDE 0.9% 1,000 ML ONE (21:06)
--- NOTE | 2018-12-23 21:31 | EDPHYS ---
Physician Documentation [facility] Name: Heather Hope Age: 28 yrs Sex: Female : 1990 Arrival Date: 12/23/2018 Time: 17:40 Bed 18 Private MD: ED Physician Johnathan Sanchez HPI: 12/23 17:48 This 28 yrs old Female presents to ER via EMS with complaints of Seizure. jmm 17:48 The patient presents after having a single isolated seizure. Seizure onset: just prior jmm to arrival. Context: the seizure(s) was witnessed, by family. Seizure Hx: Seizure medications: Keppra. Associated injury: The patient did not suffer any apparent associated injury. This is a 28 year old female with a history of epilepsy that presents to the ED after a generalized seizure. patient has had similar episode in the past. Patient states she has had increased stress due to family situation. . Historical: - Allergies: 17:46 No Known Allergies; ae4 - Home Meds: 17:46 Keppra Oral [Active]; ae4 - PMHx: 17:47 Seizures; ae4 - Immunization history:: Adult Immunizations up to date. - Social history:: Smoking status: Patient/guardian denies using tobacco. - Ebola Screening: : Patient negative for fever greater than or equal to 101.5 degrees Fahrenheit, and additional compatible Ebola Virus Disease symptoms Patient denies exposure to infectious person No symptoms or risks identified at this time. ROS: 17:48 Constitutional: Negative for fever, chills, and weight loss, Cardiovascular: Negative jmm for chest pain, palpitations, and edema, Respiratory: Negative for shortness of breath, cough, wheezing, and pleuritic chest pain, Abdomen/GI: Negative for abdominal pain, nausea, vomiting, diarrhea, and constipation, Back: Negative for injury and pain. 17:48 Neuro: Positive for seizure activity. 17:48 All other systems are negative. Exam: 17:48 Constitutional: This is a well developed, well nourished patient who is awake, alert, jmm and in no acute distress. Head/Face: atraumatic. Eyes: EOMI, no conjunctival erythema appreciated ENT: Moist Mucus Membranes Neck: Trachea midline, Supple Chest/axilla: Normal chest wall appearance and motion. Cardiovascular: Regular rate and rhythm. No edema appreciated Respiratory: Normal respirations, no respiratory distress appreciated Abdomen/GI: Non distended, soft Back: Normal ROM Skin: General appearance color normal MS/ Extremity: Moves all extremities, no obvious deformities appreciated, no edema noted to the lower extremities Neuro: Awake and alert, normal gait Psych: Behavior is normal, Mood is normal, Patient is cooperative and pleasant Vital Signs: 17:41 BP 127 / 86; Pulse 125; Resp 12; Temp 99.4(A); Pulse Ox 98% on R/A; Weight 81.65 kg (R);ae4 18:54 BP 128 / 99; Pulse 103; Resp 16; Pulse Ox 98% on R/A; ae4 19:15 BP 135 / 106; Pulse 111; Resp 21 S; Temp 99.3(O); Pulse Ox 99% on R/A; cc3 19:30 BP 152 / 110; Pulse 106; Resp 22 S; Pulse Ox 100% on R/A; cc3 19:45 BP 141 / 77; Pulse 124; Resp 32 S; Pulse Ox 100% on Non-rebreather mask; cc3 20:00 BP 131 / 75; Pulse 125; Resp 17 S; Pulse Ox 100% on Non-rebreather mask; cc3 20:30 BP 131 / 81; Pulse 126; Resp 20 S; Pulse Ox 100% on Non-rebreather mask; cc3 21:10 BP 125 / 85; Pulse 107; Resp 17 S; Pulse Ox 98% on R/A; cc3 21:30 BP 126 / 81; Pulse 106; Resp 19 S; Pulse Ox 98% on R/A; cc3 21:50 BP 121 / 57; Pulse 103; Resp 18 S; Pulse Ox 98% on R/A; cc3 22:00 BP 114 / 54; Pulse 104; Resp 20 S; Pulse Ox 99% on R/A; cc3 [place] Coma Score: 17:47 Eye Response: to pain(2). Verbal Response: none(1). Motor Response: withdraws from ae4 pain(4). Total: 7. 18:52 Eye Response: spontaneous(4). Verbal Response: oriented(5). Motor Response: obeys ae4 commands(6). Total: 15. MDM: 18:05 Patient medically screened. juarez 21:26 Data reviewed: vital signs, nurses notes. Counseling: I had a detailed discussion with juarez the patient and/or guardian regarding: the historical points, exam findings, and any diagnostic results supporting the discharge/admit diagnosis, lab results, the need for outpatient follow up, to return to the emergency department if symptoms worsen or persist or if there are any questions or concerns that arise at home. ED course: While in the ED patient had apparent seizure and was combatitive, pulling off O2 mask. I discussed this episode with Dr. German whom states the patient has a combination of pseudo and epileptics seizures. Patient o2 has been maintained throughout the evaluation. patient is non toxic in the ED. Dr. German advised to discharge the patient and will follow up in clinic. . 12/23 17:48 Order name: Acetaminophen; Complete Time: 18:57 [facility] 12/23 17:48 Order name: Basic Metabolic Panel; Complete Time: 18:57 [facility] 12/23 17:48 Order name: CBC with Diff; Complete Time: 18:57 [facility] 12/23 17:48 Order name: ETOH Level; Complete Time: 18:57 [facility] 12/23 17:48 Order name: Hepatic Function; Complete Time: 18:57 [facility] 12/23 17:48 Order name: PT-INR; Complete Time: 18:57 [facility] 12/23 17:48 Order name: Ptt, Activated; Complete Time: 18:57 [facility] 12/23 17:48 Order name: Salicylate; Complete Time: 18:57 [facility] 12/23 17:48 Order name: Urine Drug Screen; Complete Time: 20:46 [facility] 12/23 20:47 Order name: Urine Dipstick--Ancillary (enter results); Complete Time: 21:09 [facility] 12/23 20:47 Order name: Urine --Ancillary (enter results); Complete Time: 21:09 [facility] 12/23 17:48 Order name: EKG; Complete Time: 17:48 [facility] 12/23 17:48 Order name: EKG - Nurse/Tech; Complete Time: 20:01 [facility] 12/23 17:48 Order name: IV Saline Lock; Complete Time: 18:17 [facility] 12/23 17:48 Order name: Labs collected and sent; Complete Time: 18:17 [facility] 12/23 17:48 Order name: Urine Dipstick-Ancillary (obtain specimen); Complete Time: 20:32 [facility] Administered Medications: 19:33 Drug: Ativan 1 mg Route: IVP; Site: right wrist; cc3 20:00 Follow up: Response: No adverse reaction cc3 19:35 Drug: Ativan 1 mg Route: IVP; Site: right wrist; cc3 20:00 Follow up: Response: No adverse reaction cc3 19:55 Drug: Keppra 1000 mg Route: IV; Rate: calculated rate; Site: right wrist; cc3 20:13 Follow up: Response: No adverse reaction; IV Status: Completed infusion; IV Intake: cc3 100ml 20:45 Drug: NS 0.9% 1000 ml Route: IV; Rate: 1 bolus; Site: right wrist; cc3 22:05 Follow up: Response: No adverse reaction; IV Status: Completed infusion; IV Intake: cc3 1000ml Disposition: 12/24 07:53 Co-signature as Attending Physician, Johnathan Sanchez MD I agree with the assessment and kdr plan of care. Disposition: 12/23/18 21:30 Discharged to Home. Impression: Epilepsy and recurrent seizures. - Condition is Stable. - Discharge Instructions: Seizure, Adult. - Medication Reconciliation Form, Thank You Letter, Antibiotic Education, Prescription Opioid Use form. - Follow up: Srinivas German MD; When: 2 - 3 days; Reason: Recheck today's complaints, Continuance of care, Re-evaluation by your physician. Signatures: Dispatcher [employer] EDMS Johnathan Sanchez MD MD kdr Mickail, Joel, PA PA [facility] Brenna Olson 3 Tarun Barrios RN RN ae4 Corrections: (The following items were deleted from the chart) 12/23 22:16 21:30 12/23/2018 21:30 Discharged to Home. Impression: Epilepsy and recurrent seizures. cc3 Condition is Stable. Forms are Medication Reconciliation Form, Thank You Letter, Antibiotic Education, Prescription Opioid Use. Follow up: Srinivas German; When: 2 - 3 days; Reason: Recheck today's complaints, Continuance of care, Re-evaluation by your physician. song
--- NOTE | 2018-12-23 21:31 | ER ---
Nurse's Notes [facility] Name: Heather Hope Age: 28 yrs Sex: Female : 1990 Arrival Date: 12/23/2018 Time: 17:40 Bed 18 Private MD: Diagnosis: Epilepsy and recurrent seizures Presentation: 12/23 17:43 Presenting complaint: EMS states: EMS states patient had a convulsive seizure witness ae4 by patient's aunt. Transition of care: patient was not received from another setting of care. Care prior to arrival: IV initiated. 22 GA, in the right wrist, Glucose check: 101 2nd glucose check 100. 17:43 Method Of Arrival: EMS: [facility] ae4 17:43 Acuity: DARLYN 2 ae4 18:52 Onset of symptoms was December 23, 2018 at 16:30. Risk Assessment: Do you want to hurt ae4 yourself or someone else? Patient reports no desire to harm self or others. Initial Sepsis Screen: Does the patient meet any 2 criteria? HR > 90 bpm. No. Patient's initial sepsis screen is negative. Does the patient have a suspected source of infection? No. Patient's initial sepsis screen is negative. Triage Assessment: 18:52 General: Appears in no apparent distress. Patient now appears more relaxed. . ae4 Historical: - Allergies: 17:46 No Known Allergies; ae4 - Home Meds: 17:46 Keppra Oral [Active]; ae4 - PMHx: 17:47 Seizures; ae4 - Immunization history:: Adult Immunizations up to date. - Social history:: Smoking status: Patient/guardian denies using tobacco. - Ebola Screening: : Patient negative for fever greater than or equal to 101.5 degrees Fahrenheit, and additional compatible Ebola Virus Disease symptoms Patient denies exposure to infectious person No symptoms or risks identified at this time. Screenin:50 Abuse screen: Denies threats or abuse. Nutritional screening: No deficits noted. ae4 Tuberculosis screening: No symptoms or risk factors identified. Fall Risk None identified. Assessment: 17:18 Reassessment: Patient is sitting up. General: Behavior is agitated. Neuro: Level of ae4 Consciousness is awake, alert, obeys commands, Oriented to person, place, situation. Respiratory: Airway is patent Respiratory effort is even, unlabored, Respiratory pattern is regular. 17:28 General: Appears in no apparent distress. Behavior is quiet. Pain: Unable to use pain ae4 scale. Patient is unresponsive. Patient withdraws to pain. Neuro: Level of Consciousness is post ictal, unresponsive, Oriented to none Cardiovascular: Skin is warm and mildly diaphoretic.. Respiratory: Airway is patent Respiratory effort is even, unlabored, shallow, Respiratory pattern is regular. Respiratory: Breath sounds are clear bilaterally. GI: Abdomen is round distended, Bowel sounds present X 4 quads. : No signs and/or symptoms were reported regarding the genitourinary system. EENT: No signs and/or symptoms were reported regarding the EENT system. Derm: Skin is normal. Musculoskeletal: No signs and/or symptoms reported regarding the musculoskeletal system. 18:42 Reassessment: Patient's aunt is at bedside, patient is visibly upset, crying. ae4 19:10 Reassessment: Patient appears in no apparent distress at this time. Patient and/or cc3 family updated on plan of care and expected duration. Pain level reassessed. Patient is alert, oriented x 3, equal unlabored respirations, skin warm/dry/pink. Received this female post-ictal patient from morning shift RN Zora with IV cannula gauge 22 at the right wrist saline locked. Aunt at bedside. Patient denies pain at this time. General: Appears in no apparent distress. comfortable, Behavior is calm, cooperative, appropriate for age. Pain: Denies pain. Neuro: Level of Consciousness is awake, alert, obeys commands, Oriented to person, place, situation, Appropriate for age. Cardiovascular: Denies chest pain, Capillary refill < 3 seconds Patient's skin is warm and dry. Respiratory: Airway is patent Respiratory effort is even, unlabored, Respiratory pattern is regular, symmetrical. GI: Abdomen is round distended, Bowel sounds present X 4 quads. : No signs and/or symptoms were reported regarding the genitourinary system. EENT: Sclera/Cornea are clear in bilaterally Nares are clear Throat with gag reflex present. Derm: Skin is intact, is healthy with good turgor, Skin is normal. Musculoskeletal: Circulation, motion, and sensation intact. Range of motion: intact in all extremities. 19:31 Reassessment: When research food technologist Tom was about to do an ECG for the patient, the patient cc3 suddenly just had generalized seizures with eyes rolled upwards. Immediately put the patient side-lying position and administered oxygen therapy by non-rebreather mask and informed provider DANISH Holt with new orders made and carried out. 19:40 Reassessment: Patient appears in no apparent distress at this time. Patient and/or cc3 family updated on plan of care and expected duration. Pain level reassessed. Patient confused and restless post-ictal GCS 14/15, DANISH Holt aware. 20:00 Reassessment: Patient appears in no apparent distress at this time. Patient and/or cc3 family updated on plan of care and expected duration. Pain level reassessed. Patient awake but still confused, GCS 14/15. Aunt at bedside. Patient denies pain at this time. 20:35 Reassessment: Patient appears in no apparent distress at this time. Patient and/or cc3 family updated on plan of care and expected duration. Pain level reassessed. Patient is alert, oriented x 3, equal unlabored respirations, skin warm/dry/pink. Patient cannot remember that she just had a seizure earlier. Patient can now answer questions, GCS 15/15. Aunt still at bedside. Patient denies pain at this time. Patient states feeling better. 21:13 Reassessment: Patient appears in no apparent distress at this time. Patient and/or cc3 family updated on plan of care and expected duration. Pain level reassessed. Patient is alert, oriented x 3, equal unlabored respirations, skin warm/dry/pink. 21:30 Reassessment: Patient appears in no apparent distress at this time. Patient and/or cc3 family updated on plan of care and expected duration. Pain level reassessed. Patient is alert, oriented x 3, equal unlabored respirations, skin warm/dry/pink. DANISH Holt ordered discharge for the patient after the bolus IV fluids. Discharge instructions explained to the patient and her aunt. Patient denies pain at this time. Patient states feeling better. Patient states symptoms have improved. 22:10 Reassessment: Patient appears in no apparent distress at this time. Patient and/or cc3 family updated on plan of care and expected duration. Pain level reassessed. Patient is alert, oriented x 3, equal unlabored respirations, skin warm/dry/pink. IV fluid bolus completed. Patient discharged home, no prescription given. IV cannula removed and patient left ER vitally stable by wheelchair escorted by me and the patient's aunt to their car. No valuables left in the patient's room. Patient denies pain at this time. Patient states feeling better. Patient states symptoms have improved. Vital Signs: 17:41 BP 127 / 86; Pulse 125; Resp 12; Temp 99.4(A); Pulse Ox 98% on R/A; Weight 81.65 kg (R);ae4 18:54 BP 128 / 99; Pulse 103; Resp 16; Pulse Ox 98% on R/A; ae4 19:15 BP 135 / 106; Pulse 111; Resp 21 S; Temp 99.3(O); Pulse Ox 99% on R/A; cc3 19:30 BP 152 / 110; Pulse 106; Resp 22 S; Pulse Ox 100% on R/A; cc3 19:45 BP 141 / 77; Pulse 124; Resp 32 S; Pulse Ox 100% on Non-rebreather mask; cc3 20:00 BP 131 / 75; Pulse 125; Resp 17 S; Pulse Ox 100% on Non-rebreather mask; cc3 20:30 BP 131 / 81; Pulse 126; Resp 20 S; Pulse Ox 100% on Non-rebreather mask; cc3 21:10 BP 125 / 85; Pulse 107; Resp 17 S; Pulse Ox 98% on R/A; cc3 21:30 BP 126 / 81; Pulse 106; Resp 19 S; Pulse Ox 98% on R/A; cc3 21:50 BP 121 / 57; Pulse 103; Resp 18 S; Pulse Ox 98% on R/A; cc3 22:00 BP 114 / 54; Pulse 104; Resp 20 S; Pulse Ox 99% on R/A; cc3 [place] Coma Score: 17:47 Eye Response: to pain(2). Verbal Response: none(1). Motor Response: withdraws from ae4 pain(4). Total: 7. 18:52 Eye Response: spontaneous(4). Verbal Response: oriented(5). Motor Response: obeys ae4 commands(6). Total: 15. ED Course: 17:40 Patient arrived in ED. iw 17:41 Og [facility] j[facility] 17:41 Johnathan Sanchez MD is Attending Physician. [facility] 17:41 Tarun Barrios, RN is Primary Nurse. ae4 17:41 Arm band placed on right wrist. ae4 17:45 Triage completed. ae4 17:45 panel monitor on. Pulse ox on. NIBP on. jp3 17:45 Bed in low position. Call light in reach. Side rails up X 1. Side rails up X2. Seizure jp3 precautions initiated. 18:00 Maintain EMS IV. Dressing intact. Good blood return noted. Site clean \T\ dry. Gauge \T\ cindy 3 site: 22-gauge in right wrist. 18:10 Initial lab(s) drawn, by me, sent to lab. jp3 18:17 Salicylate Sent. jp3 18:17 Ptt, Activated Sent. jp3 18:17 PT-INR Sent. jp3 18:18 Hepatic Function Sent. jp3 18:18 ETOH Level Sent. jp3 18:18 CBC with Diff Sent. jp3 18:18 Basic Metabolic Panel Sent. jp3 18:18 Acetaminophen Sent. jp3 21:30 Srinivas German MD is Referral Physician. [facility] 22:10 No provider procedures requiring assistance completed. IV discontinued, intact, cc3 bleeding controlled, No redness/swelling at site. Pressure dressing applied. Administered Medications: 19:33 Drug: Ativan 1 mg Route: IVP; Site: right wrist; cc3 20:00 Follow up: Response: No adverse reaction cc3 19:35 Drug: Ativan 1 mg Route: IVP; Site: right wrist; cc3 20:00 Follow up: Response: No adverse reaction cc3 19:55 Drug: Keppra 1000 mg Route: IV; Rate: calculated rate; Site: right wrist; cc3 20:13 Follow up: Response: No adverse reaction; IV Status: Completed infusion; IV Intake: cc3 100ml 20:45 Drug: NS 0.9% 1000 ml Route: IV; Rate: 1 bolus; Site: right wrist; cc3 22:05 Follow up: Response: No adverse reaction; IV Status: Completed infusion; IV Intake: cc3 1000ml Intake: 20:13 IV: 100ml; Total: 100ml. cc3 22:05 IV: 1000ml; Total: 1100ml. cc3 Outcome: 21:30 Discharge ordered by . jmm 22:10 Discharged to home via wheelchair, with family. cc3 22:10 Condition: stable 22:10 Discharge instructions given to patient, family, Instructed on discharge instructions, follow up and referral plans. Demonstrated understanding of instructions, follow-up care. 22:16 Patient left the ED. cc3 Signatures: Og Holt, Lashawn Gagnon RN RN Nasir Collins jp3 Brenna Olson cc3 Tarun Barrios RN RN ae4 Corrections: (The following items were deleted from the chart) 17:43 17:41 BP 127 / 86; Pulse 125bpm; Resp 12bpm; Pulse Ox 98% RA; Temp 99.4F Axillary; ae4 68.04 kg Reported; ae4 20:10 19:15 BP 135 / 106; Pulse 111bpm; Resp 21bpm; Spontaneous; Pulse Ox 99% RA; cc3 cc3 21:12 19:10 Reassessment: Patient appears in no apparent distress at this time. Patient cc3 and/or family updated on plan of care and expected duration. Pain level reassessed. Patient is alert, oriented x 3, equal unlabored respirations, skin warm/dry/pink. Received this female post-ictal patient from morning shift RN Zora with IV cannula gauge 22 at the right wrist saline locked. Patient denies pain at this time. cc3 21:12 20:00 Reassessment: Patient appears in no apparent distress at this time. Patient cc3 and/or family updated on plan of care and expected duration. Pain level reassessed. Patient awake but still confused. Patient denies pain at this time. cc3 22:20 20:35 Reassessment: Patient appears in no apparent distress at this time. Patient cc3 and/or family updated on plan of care and expected duration. Pain level reassessed. Patient is alert, oriented x 3, equal unlabored respirations, skin warm/dry/pink. Patient cannot remember that she just had a seizure earlier. Patient can now answer questions. Aunt still at bedside. Patient denies pain at this time. Patient states feeling better. cc3 22:21 19:40 Reassessment: Patient appears in no apparent distress at this time. Patient cc3 and/or family updated on plan of care and expected duration. Pain level reassessed. Patient confused and restless post-ictal, DANISH hidalgo. cc3 : 20:00 Reassessment: Patient appears in no apparent distress at this time. Patient cc3 and/or family updated on plan of care and expected duration. Pain level reassessed. Patient awake but still confused. Aunt at bedside. Patient denies pain at this time. cc3
[2018-12-23 22:54] VITALS: TEMP 99.3
[2018-12-23 23:01] VITALS: O2SAT 98
[2018-12-23 23:03] VITALS: BP 121/57
--- NOTE | 2018-12-24 07:34 | EKG ---
Test Date: 2018-12-23 Test Time: 19:41:26 Lcac Operator: AG3 MEASUREMENT RESULTS: Intervals: Rate: 125 CA: 156 QRSD: 78 QT: 292 QTc: 421 [place]: P: 52 CA: 156 QRS: 22 T: 10 INTERPRETIVE STATEMENTS: Sinus tachycardia Possible Left atrial enlargement Possible Anterior infarct, age undetermined Abnormal ECG Compared to ECG 10/13/2018 15:52:19 No significant changes Electronically Signed On 12-24-18 07:33:56 CDT by Merrill Guzman
== END 2018-12-23 22:16 | disposition home or self-care (01) ==
LOC: ER 17:33
DX: G40.802 Other epilepsy, not intractable, without status epilepticus (principal)
CPT/HCPCS: 36415; 80048; 80076; 80307; 80320; 80329; 81003; 81025; 85025; 85610; 85730; 93005; 96361; 96365; 96375; 99284; J1953; J7030

== ENCOUNTER 2018-12-24 20:11 | Emergency (ER) | payer OTHER ==
--- OUTSIDE RECORDS SUMMARY | 2018-12-24 20:13 | XMS REPORT | Clinical Summary ---
:1990 Author Organization [facility] Address [address] [place] [address] Care Team Providers Name Role Phone Unavailable Primary Care Provider Unavailable Allergies No Known Allergies Medications Medication Sig Dispensed Refills Start Date End Date Status levETIRAcetam Take 1 tablet 60 tablet 2 05/19/2017 Active (KEPPRA) 1000 MG (1,000 mg tablet total) by mouth 2 (two) times daily. vitamin Take 1 tablet 90 tablet 3 05/20/2017 Active w/tctjxkm-euhh-dnepky by mouth daily. ( PLUS) 27 mg [...] Not on file Results Not on fileafter 12/23/2017 Insurance Payer Benefit Plan / Group Subscriber ID Type Phone Address [place]ICA[place] xxxxxxxxx Medicaid Advance Directives For more information, please contact:[address] [phone] Code Status Date Activated Date Inactivated Comments Full Code 05/14/2017 10:10 PM 05/19/2017 2:55 PM This code status was determined by: Patient
--- OUTSIDE RECORDS SUMMARY | 2018-12-24 20:14 | XMS REPORT ---
:1990 [facility] Address [address] [place] [address] Care Team Providers Name Role Phone MILES [...] (test code=VLDL) 8 MG/DL 3-60 RAPID PLASMA [id number] 10:31:00 Test Item Value Reference Range Comments RAPID PLASMA REAGIN (test code=RPR) Nonreactive Nonreactive GLYCOSYLATED HEMOGLOBIN (HA1C)2018-12-07 10:05:00 Test Item Value Reference Range Comments GLYCOSYLATED HEMOGLOBIN (HA1C) (test 5.8 % TOT HB 4.5-6.2 code=GLYHGB) [id number] 15:31:00 Test Item Value Reference Range Comments ACETAMINOPHEN (test < 1 MCG/ML 10-30 Acetaminophen is possibly code=ACET) toxic at levels of: 1. more than 150 MCG/ML 4 hours post ingestion. 2. more than 50 MCG/ML 12 hours post ingestion. [id number] 15:31:00 Test Item Value Reference Range Comments SALICYLATE (test code=BOSSMAN) < 3 MG/DL 0-20 Reference Range: Analgesic.................. < 10 mg/dl Therapeutic................ 15-20 mg/dl Mild Toxicity.............. > 30 mg/dl Severe Toxicity............ > 60 mg/dl UA RFLX [id number] 14:18:00 Test Item Value Reference Range Comments [...] SPECIMEN DESCRIPTION (test Clean Catch code=UASPEC) UA [id number] 14:18:00 Test Item Value Reference Range Comments UA WBC (test code=WBCU) < 10 #/hpf <10 UA RBC (test code=RBCU) 0-2 #/hpf NONE SEEN UA BACTERIA (test code=BACU) RARE #/hpf NONE SEEN UA SQUAMOUS CELLS (test code=SQU) 0 - 20 #/lpf <100 UA MUCUS (test code=MUCU) 1+ #/lpf NONE SEEN BASIC METABOLIC [id number] 14:16:00 Test Item Value Reference Range Comments [...] (test code=CA) 9.4 MG/DL 8.7-10.5 HEPATIC FUNCTION [id number] 14:16:00 Test Item Value Reference Range Comments [...] PHOSPHATASE TOTAL 74 Units/L 50-136 (test code=ALKP) [id number] 14:16:00 Test Item Value Reference Range Comments CK (test code=CKT) 87 Units/L 26-192 [id number] 14:16:00 Test Item Value Reference Range Comments ALCOHOL (test code=ALC) < 3 MG/DL 0-10 0 - 10: Should be interpreted as NEGATIVE. 11 - 50: None to mild euphoria. 51 - 100: Mild influence on vision and dark adaptation. > 80: Legal intoxication; Depression of JUNIOR NETWORK ADMINISTRATOR; Increasing degree of poisoning. > 400: Fatalities reported. Results are for medical purposes only and not forlegal or employment evaluative purposes. BASIC METABOLIC [id number] 14:09:00 Test Item Value Reference Range Comments [...] (test code=CA) 9.4 MG/DL 8.7-10.5 HEPATIC FUNCTION [id number] 14:09:00 Test Item Value Reference Range Comments TOTAL PROTEIN (test code=PROT) G/DL 6.4-8.2 ALBUMIN (test code=ALB) G/DL 3.4-5.0 GLOBULIN (test code=GLOB) G/DL 1.5-3.8 ALBUMIN/GLOBULIN RATIO (test code=A/G) 1.1-2.2 BILIRUBIN TOTAL (test code=BILT) MG/DL 0.0-1.0 BILIRUBIN DIRECT (test code=BILD) MG/DL 0.0-0.3 SGOT/AST (test code=AST) Units/L 15-37 SGPT/ALT (test code=ALT) Units/L 30-65 ALKALINE PHOSPHATASE TOTAL (test code=ALKP) Units/L 50-136 [id number] 14:09:00 Test Item Value Reference Range Comments CK (test code=CKT) Units/L 26-192 [id number] 14:09:00 Test Item Value Reference Range Comments ALCOHOL (test code=ALC) MG/DL 0-10 LACTIC ACID [id number] 13:50:00 Test Item Value Reference Range Comments LACTIC ACID POC (test 0.97 MMOL/L 0.90-1.70 Performed by certified code=LACTP) brim stretching machine operator at [facility] [id number] 13:48:00 Test Item Value Reference Range Comments GLUBED (test code=GLUBED) 88 MG/DL 65-99 Performed by certified brim stretching machine operator at [facility] DRUG OF ABUSE SCREEN [id number] 13:43:00 Test Item Value Reference Range Comments [...] confirmed by alternate methods (i.e., [facility]) [facility]. Results of screen may not be usedin criminal justice, job performance or professionalcredential review, or infant custody issues. Negative [place] Level ng/ml ----- Cocaine 300 Methamphetamine (Ecstacy) 500 Cannabinoids (THC) 50 Amphetamine 1000 Barbiturates 200 Benzodiazepines 200 Opiates 300 Phencyclidine (PCP) 25 UR HCG [id number] 13:39:00 Test Item Value Reference Range Comments UR HCG QUAL (test NEGATIVE NEGATIVE False negatives may occur when code=HCGQLU) levels of hCGare below 20 mIU/ml. When is still suspected, a new specimenshould be obtained after 48 hours and re-tested.If waiting 48 hours is not medically advisable,the test result should be confirmed using aquantitative hCG assay. UA RFLX [id number] 13:38:00 Test Item Value Reference Range Comments [...] SPECIMEN DESCRIPTION (test Clean Catch code=UASPEC) UA [id number] 13:38:00 Test Item Value Reference Range Comments UA WBC (test code=WBCU) #/hpf <10 UA RBC (test code=RBCU) #/hpf NONE SEEN UA SQUAMOUS CELLS (test code=SQU) #/lpf <100 UA RFLX [id number] 13:38:00 Test Item Value Reference Range Comments [...] SPECIMEN DESCRIPTION (test Clean Catch code=UASPEC) UA [id number] 13:38:00 Test Item Value Reference Range Comments UA WBC (test code=WBCU) #/hpf <10 UA RBC (test code=RBCU) #/hpf NONE SEEN UA SQUAMOUS CELLS (test code=SQU) #/lpf <100 CBC W/AUTO [id number] 13:26:00 Test Item Value Reference Range Comments [...] # (test code=BA#) 0.05 x10 3/uL 0.0-0.2 [id number] 19:07:00 Test Item Value Reference Range Comments LEVETIRACETAM (test 28.7 ug/mL 10.0-40.0 This test was developed and its code=LEVTAM) performance characteristicsdetermined by [employer]. It has not been cleared orapproved by the Food and Drug Administration.Performed At: Lab[address] [id number] Dias MD Ph:[phone] BASIC METABOLIC [id number] 04:58:00 Test Item Value Reference Range Comments [...] 0.60-1.00 CALCIUM (test code=CA) 8.9 MG/DL 8.7-10.5 [id number] 04:58:00 Test Item Value Reference Range Comments MAGNESIUM (test code=MAG) 1.9 MG/DL 1.8-2.4 CBC W/AUTO [id number] 04:08:00 Test Item Value Reference Range Comments [...] X10 3/uL 0.0-0.2 - MRI BRAIN W/O [id number] 13:51:00 Patient Name: SAHRA NETTLES NOVEMBER Unit No: [id number] EXAMS: CPT CODE: [id number] MRI BRAIN W/O CONTRAST 96526 Reason: sz INDICATION: Seizure COMPARISON: CT brain, [...] until the patient can hold still. at 1352 Reported and signed by: Lashell Anderson MD CC: Fanny Knowles DO; Jacob Gutierrez MD Technologist: Andre Self MRI Trscrpt Dt/ (4970)Aurelio.DW6 Orig Print D/T: S: 09/17/2018 (8375) [facility] CntNAME: SAHRA NETTLES NOVEMBER [address] [facility] PHYS: [place] [address] : 1990 AGE: 27 SEX: F LOC: D.D313 1 PHONE #: [phone] EXAM DATE: 09/17/2018 STATUS: ADM IN FAX #: RAD NO: DC Dt: PAGE 1 Signed [id number] 07:25:00 Test Item Value Reference Range Comments PROLACTIN (test code=PROLAC) 24.6 ng/mL 4.8-23.3 Performed At: Lab[address] [id number] Sb Man MD Ph:[phone] UA RFLX MICROSCOPIC [id number] 19:02:00 Test Item Value Reference Range Comments [...] met URINE SOURCE: Clean CatchUA RFLX MICROSCOPIC [id number] 18:56:00 Test Item Value Reference Range Comments [...] CULTURE NEEDED? (test code=UACULT) URINE SOURCE: Clean [id number] 15:56:00 Test Item Value Reference Range Comments CK (test code=CKT) 34 Units/L 26-192 BASIC METABOLIC [id number] 12:57:00 Test Item Value Reference Range Comments [...] 0.60-1.00 CALCIUM (test code=CA) 8.6 MG/DL 8.7-10.5 [id number] 12:57:00 Test Item Value Reference Range Comments CK (test code=CKT) 32 Units/L 26-192 CBC W/AUTO [id number] 12:33:00 Test Item Value Reference Range Comments [...] 0.0 X10 3/uL 0.0-0.2 TOTAL IRON BINDING [id number] 05:50:00 Test Item Value Reference Range Comments SERUM IRON (test code=IRON) 17 MCG/DL 50-170 TOTAL IRON BINDING CAPACITY (test code=TIBC) 363 MCG/DL 280-400 IRON SATURATION (test code=FESAT) 5 % 15-50 [id number] 05:50:00 Test Item Value Reference Range Comments FERRITIN (test code=LULI) 11 NG/ML 3-105 HEPATIC FUNCTION [id number] 05:32:00 Test Item Value Reference Range Comments [...] 50-136 (test code=ALKP) - CT HEAD/BRAIN W/O [id number] 20:19:00 Patient Name: SAHRA NETTLES Unit No: [id number] EXAMS: CPT CODE: [id number] CT HEAD/BRAIN W/O CONT 08385 Reason: seizure TECHNIQUE: Contiguous 5 mm images [...] Print D/T: S: 07/2018 (2021) CTDI: DLP: [facility] NAME: SAHRA NETTLES TIERRA [address] [facility] PHYS: WONGJA. - Keanu Váz[place] [address] : 1990 AGE: 27 SEX: F LOC: RichNER PHONE#: [phone] EXAM DATE: 07/2018 STATUS: REG ER FAX #: RAD NO: DC Dt: PAGE 1 Signed Report- XR CHEST 1 [id number] 20:18:00 Patient Name: SAHRA NETTLES Unit No: [id number] EXAMS: CPT CODE: [id number] XR CHEST 1 V 93253 Reason: screen for pneumonia FINDINGS: Single view ofthe chest shows normal heart size and pulmonary vasculature. The lungs are clear bilaterally. There is no focal infiltrate, pleural effusion or pneumothorax. IMPRESSION: No acute cardiopulmonary findings at 2018 Reported and signed by : Lashell Jimenez MD CC: Keanu Vázquez MD; Cristiane Heath Technologist: Edel BURNS Trscrpt Dt/ (2017)t.DKW Orig PrintD/T: S: 09/14/2018 (2020) [facility] NAME: SAHRA NETTLES TIERRA [address] [facility] PHYS: NGA. - Keanu Váz[place] [address] : 1990 AGE: 27 SEX: F LOC: RichNER PHONE #: [phone] EXAM DATE: 09/14/2018 STATUS: REG ER FAX #: RAD NO: DC Dt: PAGE 1 Signed ReportHCG SERUM [id number] 20:04:00 Test Item Value Reference Range Comments HCG SERUM QUAL (test NEGATIVE NEGATIVE False negatives may occur when code=HCGQL) levels of hCGare below 10 mIU/ml. When is still suspected, a new specimenshould be obtained after 48 hours and re-tested.If waiting 48 hours is not medically advisable,the test result should be confirmed using aquantitative hCG assay. BASIC METABOLIC [id number] 19:51:00 Test Item Value Reference Range Comments [...] (test code=CA) 9.3 MG/DL 8.7-10.5 CBC W/AUTO [id number] 19:46:00 Test Item Value Reference Range Comments [...] (test code=BA#) 0.05 x10 3/uL 0.0-0.2 BLOOD [id number] 10:00:00 Test Item Value Reference Range Comments CULTURE (BEAKER) (test qpln=9062) No growth in 5 days HCG, QUANTITATIVE, [id number] 15:37:00 Test Item Value Reference Range Comments GONADOTROPIN, CHORIONIC (HCG) QUANT (BEAKER) 16608 mIU/mL 0-10 (test ykjw=698) Non- Females: <10 mIU/mL Females: Gestation Age Reference Range(mIU/mL) 0.2-1 Week 5-50 1-2 Weeks 50-500 2-3 Weeks 100-5,000 3-4Weeks 500-10,000 4 -5 Weeks 1,000-50,000 5-6 Weeks 10,000-100,000 6-8 Weeks 15,000-200,000 2-3 Months 10,000-100,000COMPREHENSIVE METABOLIC [id number] 15:10:00 Test Item Value Reference Range Comments TOTAL PROTEIN (BEAKER) 7.0 gm/dL 6.0-8.3 (test fdnl=127) ALBUMIN (BEAKER) (test 3.9 g/dL 3.5-5.0 cxll=6807) ALKALINE PHOSPHATASE 50 U/L 40-150 (BEAKER) (test uuas=100) BILIRUBIN TOTAL (BEAKER) 0.5 mg/dL 0.2-1.2 (test lyky=134) SODIUM (BEAKER) (test 140 meq/L 136-145 ddkp=329) POTASSIUM (BEAKER) (test 3.4 meq/L 3.5-5.1 jnec=102) CHLORIDE (BEAKER) (test 107 meq/L 98-107 llyu=390) CO2 (BEAKER) (test 21 meq/L 22-29 mzha=444) BLOOD UREA NITROGEN 6 mg/dL 7-21 (BEAKER) (test odnh=250) CREATININE (BEAKER) (test 0.54 mg/dL 0.57-1.25 hlhs=744) GLUCOSE RANDOM (BEAKER) 76 mg/dL 70-105 (test undj=823) CALCIUM (BEAKER) (test 9.2 mg/dL 8.4-10.2 ftzk=830) AST (SGOT) (BEAKER) (test 57 U/L 5-34 jxhe=102) ALT (SGPT) (BEAKER) (test 84 U/L 6-55 ixxz=066) EGFR (BEAKER) (test 135 mL/min/1.73 sq ESTIMATED GFR IS NOT sxwl=8010) m ACCURATE CREATININE CLEARANCE IN PREDICTING GLOMERULAR FILTRATION RATE. ESTIMATED GFR IS NOT APPLICABLE FOR DIALYSIS PATIENTS. CBC W/PLT COUNT & AUTO [id number] 14:53:00 Test Item Value Reference Range Comments WHITE BLOOD CELL COUNT (BEAKER) (test nifr=136) 9.7 K/ L 3.5-10.5 RED BLOOD CELL COUNT (BEAKER) (test tvse=923) 4.31 M/ L 3.93-5.22 HEMOGLOBIN (BEAKER) (test ggqv=632) 10.0 GM/DL 11.2-15.7 HEMATOCRIT (BEAKER) (test rjna=369) 31.9 % 34.1-44.9 MEAN CORPUSCULAR VOLUME (BEAKER) (test xxlq=423) 74.0 fL 79.4-94.8 MEAN CORPUSCULAR HEMOGLOBIN (BEAKER) (test 23.2 pg 25.6-32.2 wxxf=483) MEAN CORPUSCULAR HEMOGLOBIN CONC (BEAKER) (test 31.3 GM/DL 32.2-35.5 vggs=160) RED CELL DISTRIBUTION WIDTH (BEAKER) (test 19.0 % 11.7-14.4 zaex=515) PLATELET COUNT (BEAKER) (test hyby=019) 259 K/CU MM 150-450 MEAN PLATELET VOLUME (BEAKER) (test gosp=142) 9.9 fL 9.4-12.3 NUCLEATED RED BLOOD CELLS (BEAKER) (test 0 /100 WBC 0-0 bpjp=722) NEUTROPHILS RELATIVE PERCENT (BEAKER) (test 70 % idwd=329) LYMPHOCYTES RELATIVE PERCENT (BEAKER) (test 21 % zmwe=273) MONOCYTES RELATIVE PERCENT (BEAKER) (test 8 % mobk=266) EOSINOPHILS RELATIVE PERCENT (BEAKER) (test 1 % miob=050) BASOPHILS RELATIVE PERCENT (BEAKER) (test 1 % rdla=539) NEUTROPHILS ABSOLUTE COUNT (BEAKER) (test 6.75 K/ L 1.56-6.13 oklv=851) LYMPHOCYTES ABSOLUTE COUNT (BEAKER) (test 2.01 K/ L 1.18-3.74 lzdp=069) MONOCYTES ABSOLUTE COUNT (BEAKER) (test 0.75 K/ L 0.24-0.36 uqxf=548) EOSINOPHILS ABSOLUTE COUNT (BEAKER) (test 0.07 K/ L 0.04-0.36 tolj=719) BASOPHILS ABSOLUTE COUNT (BEAKER) (test 0.08 K/ L 0.01-0.08 smrv=958) IMMATURE GRANULOCYTES-RELATIVE PERCENT (BEAKER) 0 % 0-1 (test fkha=7588) U/S, , FIRST [id number] 07:52:00Reason for exam:-> Reason for exam:->please include [...] 1 day. An embryonic pole is evident. [place]-rump length measures 0.63 cm, correlating with estimated [...] Garrido Verified Date/Time: 05/17/2017 07:52:37 Reading Location: [facility] C0X Ortho Consult Reading Room PREGNANCY SCREEN, [id number] 05:28:00 Test Item Value Reference Range Comments TEST URINE (BEAKER) (test vtcv=269) Positive MR, BRAIN, WITHOUT [id number] 18:54:00Reason for exam:->Stroke evaluationFINAL REPORT MRI brain [...] Verified Date/Time: 05/15/2017 18 :54:11 Reading Location: [facility] Radiology Reading Room EEG AWAKE AND [id number] 12:08:00Reason for exam:->? nonconvulsive statusDATE OF TEST: 2016DATE OF REPORT 05/15/2017 ACC: [id number] EE Start time: 1034 Stop time: 1054 ICD-10: R56.9CPT Code: 79476ESKLBIB: 26 y/o woman with epilepsy found down [...] recordings.Marika Smith M.D.Neurophysiology FellowSwathi Harper M.D.Neurophysiology Attending [id number] 04:27:00 Test Item Value Reference Range Comments PROCALCITONIN (BEAKER) (test lwgu=4283) 0.17 ng/mL <0.05 SEPSIS RISK (ng/mL)Low: 0.05-0.50Intermediate: 0.51-2.00High: & gt;=[id number] 03:15:00 Test Item Value Reference Range Comments PHOSPHORUS (BEAKER) (test ytme=654) 3.1 mg/dL 2.3-4.7 [id number] 03:15:00 Test Item Value Reference Range Comments MAGNESIUM (BEAKER) (test qxmt=058) 1.9 mg/dL 1.6-2.6 BASIC METABOLIC [id number] 03:15:00 Test Item Value Reference Range Comments SODIUM (BEAKER) (test 139 meq/L 136-145 oqlb=654) POTASSIUM (BEAKER) (test 3.7 meq/L 3.5-5.1 thpl=024) CHLORIDE (BEAKER) (test 110 meq/L 98-107 ungl=537) CO2 (BEAKER) (test 19 meq/L 22-29 uyto=405) BLOOD UREA NITROGEN 8 mg/dL 7-21 (BEAKER) (test yazq=767) CREATININE (BEAKER) (test 0.57 mg/dL 0.57-1.25 dzwg=154) GLUCOSE RANDOM (BEAKER) 92 mg/dL 70-105 (test nmyc=173) CALCIUM (BEAKER) (test 9.2 mg/dL 8.4-10.2 ckam=503) EGFR (BEAKER) (test 127 mL/min/1.73 sq m ESTIMATED GFR IS NOT hrbj=9591) ACCURATE CREATININE CLEARANCE IN PREDICTING GLOMERULAR FILTRATION RATE. ESTIMATED GFR IS NOT APPLICABLE FOR DIALYSIS PATIENTS. CREATINE KINASE (CK)2017-05-15 03:15:00 Test Item Value Reference Range Comments CREATINE KINASE TOTAL (BEAKER) (test xjvr=195) 200 U/L 29-200 LACTIC ACID, VENOUS, WHOLE [id number] 03:09:00 Test Item Value Reference Range Comments LACTATE BLOOD VENOUS (2) (BEAKER) (test 0.6 mmol/L 0.5-2.2 sfoy=2790) Effective 10/17/2015: Units/Reference Range ChangeNew: 0.5-2.2 mmol/L Previous: 5 -20 mg/dLPROTHROMBIN TIME/[id number] 03:07:00 Test Item Value Reference Range Comments PROTIME (BEAKER) (test yvxw=578) 14.5 seconds 11.7-14.7 INR (BEAKER) (test urlr=039) 1.1 <=5.9 RECOMMENDED COUMADIN/WARFARIN INR THERAPY RANGESSTANDARD DOSE: 2.0 - 3.0 Includes: PROPHYLAXIS forvenous thrombosis, systemic embolization; TREATMENT for venous thrombosis and/or pulmonary embolus.HIGH RISK: Target INR is 2.5-3.5 for patients with mechanical heart valves.CBC W/PLT COUNT & AUTO [id number] 03:00:00 Test Item Value Reference Range Comments WHITE BLOOD CELL COUNT (BEAKER) (test dmwo=554) 21.6 K/ L 3.5-10.5 RED BLOOD CELL COUNT (BEAKER) (test oixd=868) 4.04 M/ L 3.93-5.22 HEMOGLOBIN (BEAKER) (test jphs=560) 9.3 GM/DL 11.2-15.7 HEMATOCRIT (BEAKER) (test dnbd=843) 30.1 % 34.1-44.9 MEAN CORPUSCULAR VOLUME (BEAKER) (test fjoj=403) 74.5 fL 79.4-94.8 MEAN CORPUSCULAR HEMOGLOBIN (BEAKER) (test 23.0 pg 25.6-32.2 boyc=152) MEAN CORPUSCULAR HEMOGLOBIN CONC (BEAKER) (test 30.9 GM/DL 32.2-35.5 rdgn=526) RED CELL DISTRIBUTION WIDTH (BEAKER) (test 19.3 % 11.7-14.4 vcgi=588) PLATELET COUNT (BEAKER) (test ccfr=503) 250 K/CU MM 150-450 MEAN PLATELET VOLUME (BEAKER) (test bvwa=444) 10.3 fL 9.4-12.3 NUCLEATED RED BLOOD CELLS (BEAKER) (test 0 /100 WBC 0-0 xkze=429) NEUTROPHILS RELATIVE PERCENT (BEAKER) (test 83 % tobu=054) LYMPHOCYTES RELATIVE PERCENT (BEAKER) (test 9 % pdus=928) MONOCYTES RELATIVE PERCENT (BEAKER) (test 8 % srmb=471) EOSINOPHILS RELATIVE PERCENT (BEAKER) (test 0 % qrkq=212) BASOPHILS RELATIVE PERCENT (BEAKER) (test 0 % gqmc=664) NEUTROPHILS ABSOLUTE COUNT (BEAKER) (test 17.85 K/ L 1.56-6.13 pauh=964) LYMPHOCYTES ABSOLUTE COUNT (BEAKER) (test 1.98 K/ L 1.18-3.74 krsj=164) MONOCYTES ABSOLUTE COUNT (BEAKER) (test 1.62 K/ L 0.24-0.36 rnml=013) EOSINOPHILS ABSOLUTE COUNT (BEAKER) (test 0.01 K/ L 0.04-0.36 udli=834) BASOPHILS ABSOLUTE COUNT (BEAKER) (test 0.04 K/ L 0.01-0.08 cndq=139) IMMATURE GRANULOCYTES-RELATIVE PERCENT (BEAKER) 1 % 0-1 (test lnzx=5451) RAD, CHEST, 1 VIEW, NON [id number] 01:06:00Reason for exam:->possible infectionShould this be performed [...] MDReport Verified Date/Time: 2016 01:06:06 Reading Location: [address] Reading Room
[2018-12-24] MEDS ORDERED: ACETAMINOPHEN 650MG/RECT SUPP PR ONE (21:28)
[2018-12-24 21:29] LABS: Absolute Lymphocytes (CBC) 1.8 K/uL (0.7-4.9); Basophils % 0.7 % (0-1.3); Eosinophils % 1.2 % (0-4.4); Hematocrit 31.8 % (36.0-45.0); MPV 8.5 fL (7.6-11.3); Monocytes % 7.5 % (3.3-12.3); RBC Red Blood Cell Count 4.26 M/uL (3.86-4.86)
[2018-12-24 21:31] LABS: Protime INR 1.11
[2018-12-24 21:37] LABS: Urine Blood NEGATIVE (NEG); Urine Glucose NEGATIVE (NEG); Urine Protein TRACE (NEG); Urine Specific Gravity >1.030 (1.005-1.030)
[2018-12-24 21:48] LABS: ALT/SGPT 21 U/L (12-78); AST/SGOT 13 U/L (15-37); Albumin 3.8 g/dL (3.4-5.0); Alkaline Phosphatase 65 U/L (45-117); BUN Blood Urea Nitrogen 9 mg/dL (7-18); Bicarbonate 28 mmol/L (21-32); Bilirubin Direct < 0.1 mg/dL (0-0.2); Bilirubin Total 0.2 mg/dL (0.2-1.0); Creatine Phosphokinase 74 U/L (26-192); Glucose Level 104 mg/dL (74-106); Lipase 131 U/L (73-393); Potassium 3.7 mmol/L (3.5-5.1); Protein, Total 7.3 g/dL (6.4-8.2); Sodium Level 142 mmol/L (136-145)
[2018-12-24 21:58] LABS: Urine Bacteria <20 /HPF (<20); Urine Culture Reflex Order NOT NEEDED; Urine Mucus 3+ /HPF (NONE SEEN); Urine RBC <5 /HPF (NONE SEEN)
[2018-12-24] MEDS ORDERED: NA CHLORIDE 0.9% 1,000 ML ONE (23:48)
--- NOTE | 2018-12-25 00:02 | EDPHYS ---
Physician Documentation [facility] Name: Heather Hope Age: 28 yrs Sex: Female : 1990 Arrival Date: 12/24/2018 Time: 20:09 Bed 3 Private MD: ED Physician Silvio Espinoza HPI: 12/24 23:53 This 28 yrs old Female presents to ER via EMS with complaints of Altered gs Mental Status - Possible seizure, Fever. 23:53 The patient presents after having a single isolated seizure. Character of seizure(s): gs Motor activity: generalized. Seizure onset: just prior to arrival. Associated injury: The patient did not suffer any apparent associated injury. Current symptoms: confusion, decreased level of consciousness, is sleeping but easy to arouse. The patient has experienced similar episodes in the past, a few times. The patient has been recently seen at the [facility] Emergency Department, yesterday. 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 - Social history:: The patient lives at home, Smoking status: Patient uses tobacco products. - Ebola Screening: : No symptoms or risks identified at this time. ROS: 23:53 All other systems are negative. gs Exam: 23:53 Head/Face: Normocephalic, atraumatic. Eyes: Pupils equal round and reactive to light, gs extra-ocular motions intact. Lids and lashes normal. Conjunctiva and sclera are non-icteric and not injected. Cornea within normal limits. Periorbital areas with no swelling, redness, or edema. ENT: Nares patent. No nasal discharge, no septal abnormalities noted. Tympanic membranes are normal and external auditory canals are clear. Oropharynx with no redness, swelling, or masses, exudates, or evidence of obstruction, uvula midline. Mucous membranes moist. Neck: Trachea midline, no thyromegaly or masses palpated, and no cervical lymphadenopathy. Supple, full range of motion without nuchal rigidity, or vertebral point tenderness. No Meningismus. Chest/axilla: Normal chest wall appearance and motion. Nontender with no deformity. No lesions are appreciated. 23:53 Respiratory: Lungs have equal breath sounds bilaterally, clear to auscultation and percussion. No rales, rhonchi or wheezes noted. No increased work of breathing, no retractions or nasal flaring. Abdomen/GI: Soft, non-tender, with normal bowel sounds. No distension or tympany. No guarding or rebound. No evidence of tenderness throughout. Back: No spinal tenderness. No costovertebral tenderness. Full range of motion. Skin: Warm, dry with normal turgor. Normal color with no rashes, no lesions, and no evidence of cellulitis. MS/ Extremity: Pulses equal, no cyanosis. Neurovascular intact. Full, normal range of motion. 23:53 Constitutional: The patient appears lethargic. 23:53 Neck: ROM/movement: no acute changes, Meningeal signs: are not present. 23:53 Cardiovascular: Rate: tachycardic, Rhythm: regular, Pulses: no pulse deficits are appreciated. 23:53 Neuro: Orientation: to person, place, time, situation, Cranial nerves: CN II- XII are normal as tested, Cerebellar function: is grossly normal, Motor: moves all fours, Sensation: no obvious gross deficits. Vital Signs: 20:17 BP 133 / 92; Pulse 122; Resp 16; Temp 101(R); Pulse Ox 100% on R/A; Weight 81.65 kg; lp1 21:00 BP 114 / 80; Pulse 95; Resp 16; Pulse Ox 97% on R/A; lp1 22:00 BP 133 / 86; Pulse 98; Resp 16; Pulse Ox 98% on R/A; lp1 22:30 BP 124 / 82; Pulse 92; Resp 18; Pulse Ox 99% on R/A; lp1 23:30 BP 128 / 81; Pulse 94; Resp 19; Temp 98.8(O); Pulse Ox 99% on R/A; lp1 12/25 00:05 BP 119 / 71; Pulse 99; Resp 19; Pulse Ox 100% on R/A; rr5 MDM: 12/24 20:42 Patient medically screened. gs 23:53 Differential diagnosis: seizure, sepsis. Data reviewed: vital signs, nurses notes. Data gs reviewed: old medical records, lab test result(s). Counseling: I had a detailed discussion with the patient and/or guardian regarding: the historical points, exam findings, and any diagnostic results supporting the discharge/admit diagnosis, lab results, the need for outpatient follow up. ED course: pt. much more lucid back to baseline per significant other, pt states she had a seizure she denies headache neck pain neck stiffness doesn't want LP. will forego LP based on pt wishes, improved mental status to baseline, normal labs, no physical signs of meningitis. plan discharge.. 12/24 20:42 Order name: Basic Metabolic Panel; Complete Time: 21:56 12/24 20:42 Order name: Blood Culture Adult (2) 12/24 20:42 Order name: CBC with Diff; Complete Time: 21:31 12/24 20:42 Order name: CPK; Complete Time: 21:56 12/24 20:42 Order name: Lactate; Complete Time: 21:56 12/24 20:42 Order name: LFT's; Complete Time: 21:56 12/24 20:42 Order name: Lipase; Complete Time: 21:56 12/24 20:42 Order name: Procalcitonin; Complete Time: 23:16 12/24 20:42 Order name: Protime (+inr); Complete Time: 21:56 12/24 20:42 Order name: Urine Microscopic Only; Complete Time: 23:16 12/24 21:32 Order name: Urine Dipstick--Ancillary (enter results); Complete Time: 21:56 [facility] 12/24 21:32 Order name: Urine --Ancillary (enter results) [facility] 12/24 21:33 Order name: Urine --Ancillary; Complete Time: 21:56 EDMS 12/24 20:42 Order name: Chest Single View XRAY 12/24 20:42 Order name: Accucheck; Complete Time: 23:43 12/24 20:42 Order name: Cardiac monitoring; Complete Time: 21:34 12/24 20:42 Order name: EKG - Nurse/Tech; Complete Time: 21:34 12/24 20:42 Order name: IV Saline Lock - Large Bore; Complete Time: 21:34 12/24 20:42 Order name: Labs collected and sent; Complete Time: 21:34 12/24 20:42 Order name: O2 Per Protocol; Complete Time: 21:34 12/24 20:42 Order name: O2 Sat Monitoring; Complete Time: 21:27 12/24 20:42 Order name: Urine Dipstick-Ancillary (obtain specimen); Complete Time: 21:34 Administered Medications: 21: Not Given (Duplicate Order): Tylenol 650 mg PO once tl1 21:27 Drug: Tylenol Suppository 650 mg Route: MT; tl1 23:38 Follow up: Response: Temperature is decreased lp1 23:37 Drug: NS 0.9% 1000 ml Route: IV; Rate: 1000 ml; Site: right antecubital; lp1 12/25 00:07 Follow up: Response: No adverse reaction; IV Status: Completed infusion; IV Intake: rr5 1000ml Disposition: 12/25/18 00:00 Discharged to Home. Impression: Epilepsy and recurrent seizures, Fever, unspecified. - Condition is Stable. - Discharge Instructions: Fever, Adult, Seizure, Adult. - Medication Reconciliation Form, Thank You Letter, Antibiotic Education, Prescription Opioid Use form. - Follow up: Private Physician; When: 2 - 3 days; Reason: Re-evaluation by your physician. Signatures: Dispatcher [employer] Marla Rodríguez RN RN lp1 Sofia Smith RN RN tl1 Silvio Espinoza MD MD Chicho Colunga RN RN rr5 Corrections: (The following items were deleted from the chart) 00:12/24 21:57 LP Consents ordered. rr5 12/25 00:12/24 21:57 LP Setup ordered. rr5 12/25 00:25 00:00 12/25/2018 00:00 Discharged to Home. Impression: Epilepsy and recurrent seizures; rr5 Fever, unspecified. Condition is Stable. Forms are Medication Reconciliation Form, Thank You Letter, Antibiotic Education, Prescription Opioid Use. Follow up: Private Physician; When: 2 - 3 days; Reason: Re-evaluation by your physician.
--- NOTE | 2018-12-25 00:02 | ER ---
Nurse's Notes [facility] Name: Heather Hope Age: 28 yrs Sex: Female : 1990 Arrival Date: 12/24/2018 Time: 20:09 Bed 3 Private MD: Diagnosis: Epilepsy and recurrent seizures;Fever, unspecified Presentation: 12/24 20:14 Presenting complaint: EMS states: Called to [facility] for patient with seizure-like lp1 activity; Hx of seizures related to stress; Per EMS, patient responsive to questions en route to ED, patient unresponsive on arrival to ED. Transition of care: patient was not received from another setting of care. Onset of symptoms was December 24, 2018. Risk Assessment: Do you want to hurt yourself or someone else? Unable to obtain. Initial Sepsis Screen: Does the patient meet any 2 criteria? Temp <36.0*C (96.8*F)) or > 38.3*C (100.9*F). Altered Mental Status. HR > 90 bpm. Yes Does the patient have a suspected source of infection? No. Patient's initial sepsis screen is negative. If YES to both, name of provider notified: Silvio Espinoza MD Care prior to arrival: Glucose check: 106. 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 - Social history:: The patient lives at home, Smoking status: Patient uses tobacco products. - Ebola Screening: : No symptoms or risks identified at this time. Screenin:44 Abuse screen: Denies threats or abuse. Denies injuries from another. Nutritional lp1 screening: No deficits noted. Tuberculosis screening: No symptoms or risk factors identified. Fall Risk Total Green Fall Scale indicates High Risk Score (45 or more points). Fall prevention measures have been instituted. Side Rails Up X 2 Frequent Obs/Assessments Occuring. Assessment: 20:30 General: Appears in no apparent distress. unkempt, Behavior is unresponsive. Pain: lp1 Unable to use pain scale. Patient is disoriented. FLACC scale score is 0 out of 10. Neuro: Level of Consciousness is unresponsive, Patient not responding to questions, keeping eyes closed, repositioning self independently in stretcher . Cardiovascular: Patient's skin is warm and dry. Respiratory: Airway is patent Respiratory effort is even, unlabored. GI: No deficits noted. : No deficits noted. EENT: No deficits noted. Derm: Skin is pink, warm \T\ dry. Musculoskeletal: No deficits noted. 21:00 Reassessment: Dr. Espinoza verbal order to cancel Code Sepsis protocol. lp1 21:30 Reassessment: Patient appears in no apparent distress at this time. No changes from lp1 previously documented assessment. Patient resting, eyes closed, respirations unlabored; Not responding to questions. 22:40 Reassessment: Patient's boyfriend at bedside; patient talking with boyfriend. lp1 23:30 Reassessment: Dr. Espinoza spoke with patient about plan of care; Verbal order to cancel lp1 plan for Lumbar pucture, administer NS 1L bolus. 23:39 Reassessment: Patient arousable with verbal stimuli, unable to recall what happened, lp1 reoriented by nurse and updated on plan of care; Patient continued resting with eyes closed. 12/25 00:08 Reassessment: Patient appears in no apparent distress at this time. Patient is alert, rr5 oriented x 3, equal unlabored respirations, skin warm/dry/pink. Spoke to Mr. rodriguez ( [phone])over the phone to assist the patient going home. 00:23 Reassessment: Patient appears in no apparent distress at this time. Patient is alert, rr5 oriented x 3, equal unlabored respirations, skin warm/dry/pink. accompanied by her boyfiend, no complaints made,ambulatory steady gait noted, discharged. Vital Signs: 12/24 20:17 BP 133 / 92; Pulse 122; Resp 16; Temp 101(R); Pulse Ox 100% on R/A; Weight 81.65 kg; lp1 21:00 BP 114 / 80; Pulse 95; Resp 16; Pulse Ox 97% on R/A; lp1 22:00 BP 133 / 86; Pulse 98; Resp 16; Pulse Ox 98% on R/A; lp1 22:30 BP 124 / 82; Pulse 92; Resp 18; Pulse Ox 99% on R/A; lp1 23:30 BP 128 / 81; Pulse 94; Resp 19; Temp 98.8(O); Pulse Ox 99% on R/A; lp1 12/25 00:05 BP 119 / 71; Pulse 99; Resp 19; Pulse Ox 100% on R/A; rr5 ED Course: 12/24 20:09 Patient arrived in ED. dm5 20:17 Triage completed. lp1 20:18 Arm band placed on. lp1 20:29 Silvio Espinoza MD is Attending Physician. gs 20:30 Patient has correct armband on for positive identification. Placed in gown. Bed in low lp1 position. Side rails up X2. Seizure precautions initiated. laboratory monitor on. Pulse ox on. NIBP on. 20:31 Marla Gibson, CLAUDIA is Primary Nurse. lp1 21:00 Chest Single View XRAY In Process Unspecified. EDMS 21:28 No provider procedures requiring assistance completed. Straight cath inserted, using tl1 sterile technique, 14 Fr. Returned clear yellow urine. Patient tolerated well. 12/25 00:10 IV discontinued, intact, bleeding controlled, No redness/swelling at site. Pressure rr5 dressing applied. Administered Medications: 12/24 21:26 Not Given (Duplicate Order): Tylenol 650 mg PO once tl1 21:27 Drug: Tylenol Suppository 650 mg Route: MI; tl1 23:38 Follow up: Response: Temperature is decreased lp1 23:37 Drug: NS 0.9% 1000 ml Route: IV; Rate: 1000 ml; Site: right antecubital; lp1 12/25 00:07 Follow up: Response: No adverse reaction; IV Status: Completed infusion; IV Intake: rr5 1000ml Intake: 00:07 IV: 1000ml; Total: 1000ml. rr5 Outcome: 00:00 Discharge ordered by . gs 00:10 Discharged to home ambulatory, with family. rr5 00:10 Condition: stable 00:10 Discharge instructions given to patient, Instructed on discharge instructions, follow up and referral plans. Demonstrated understanding of instructions, follow-up care. 00:25 Patient left the ED. rr5 Signatures: Dispatcher [employer] EDMS Sophia Jimenez, RN RN dm5 Marla Gibson RN RN lp1 Sofia Smith RN RN tl1 Silvio Espinoza MD MD Chicho Colunga RN RN rr5 Corrections: (The following items were deleted from the chart) 12/24 20:20 20:17 BP 133 / 92; Pulse 122bpm; Resp 16bpm; Pulse Ox 100% RA; Temp 101F Rectal; lp1 lp1 22:05 21:44 Fall Risk None identified. lp1 lp1
[2018-12-25 00:55] VITALS: TEMP 98.8
[2018-12-25 00:56] VITALS: BP 119/71; O2SAT 100
--- NOTE | 2018-12-25 12:06 | RAD REPORT ---
EXAM DESCRIPTION: RAD - Chest Single View - 12/24/2018 9:03 pm CLINICAL HISTORY: FEVER Chest pain. COMPARISON: <Comparisons> FINDINGS: Portable technique limits examination quality. The lungs are grossly clear. The heart is upper limit of normal in size. No displaced fractures. IMPRESSION: No acute intrathoracic process suspected.
== END 2018-12-25 00:25 | disposition home or self-care (01) ==
LOC: ER 20:11
DX: G40.802 Other epilepsy, not intractable, without status epilepticus (principal); R50.9 Fever, unspecified; Z72.0 Tobacco use
CPT/HCPCS: 36415; 51702; 71045; 80048; 80076; 81003; 81015; 81025; 82550; 83605; 83690; 84145; 85025; 85610; 87040; 99284; J7030

== ENCOUNTER 2018-12-25 18:54 | Emergency (ER) | payer OTHER ==
--- OUTSIDE RECORDS SUMMARY | 2018-12-25 18:56 | XMS REPORT | Clinical Summary ---
:1990 Author Organization [facility] Address [address] [place] [address] Care Team Providers Name Role Phone Unavailable Primary Care Provider Unavailable Allergies No Known Allergies Medications Medication Sig Dispensed Refills Start Date End Date Status levETIRAcetam Take 1 tablet 60 tablet 2 05/19/2017 Active (KEPPRA) 1000 MG (1,000 mg tablet total) by mouth 2 (two) times daily. vitamin Take 1 tablet 90 tablet 3 05/20/2017 Active w/jkzqkmc-kyqh-[id number] by mouth daily. ( PLUS) 27 mg [...] Not on file Results Not on fileafter 12/24/2017 Insurance Payer Benefit Plan / Group Subscriber ID Type Phone Address [place]ICA[place] xxxxxxxxx Medicaid Advance Directives For more information, please contact:[address] [phone] Code Status Date Activated Date Inactivated Comments Full Code 05/14/2017 10:10 PM 05/19/2017 2:55 PM This code status was determined by: Patient
--- OUTSIDE RECORDS SUMMARY | 2018-12-25 18:58 | XMS REPORT ---
:1990 [facility] [address] [place] [address] Care Team Providers Name Role Phone MILES [...] (test code=VLDL) 8 MG/DL 3-60 RAPID PLASMA [id number] 10:31:00 Test Item Value Reference Range Comments RAPID PLASMA REAGIN (test code=RPR) Nonreactive Nonreactive GLYCOSYLATED HEMOGLOBIN (HA1C)2018-12-07 10:05:00 Test Item Value Reference Range Comments GLYCOSYLATED HEMOGLOBIN (HA1C) (test 5.8 % TOT HB 4.5-6.2 code=GLYHGB) [id number] 15:31:00 Test Item Value Reference Range Comments ACETAMINOPHEN (test < 1 MCG/ML 10-30 Acetaminophen is possibly code=ACET) toxic at levels of: 1. more than 150 MCG/ML 4 hours post ingestion. 2. more than 50 MCG/ML 12 hours post ingestion. [id number] 15:31:00 Test Item Value Reference Range Comments SALICYLATE (test code=BOSSMAN) < 3 MG/DL 0-20 Reference Range: Analgesic.................. < 10 mg/dl Therapeutic................ 15-20 mg/dl Mild Toxicity.............. > 30 mg/dl Severe Toxicity............ > 60 mg/dl UA RFLX [id number] 14:18:00 Test Item Value Reference Range Comments [...] SPECIMEN DESCRIPTION (test Clean Catch code=UASPEC) UA [id number] 14:18:00 Test Item Value Reference Range Comments UA WBC (test code=WBCU) < 10 #/hpf <10 UA RBC (test code=RBCU) 0-2 #/hpf NONE SEEN UA BACTERIA (test code=BACU) RARE #/hpf NONE SEEN UA SQUAMOUS CELLS (test code=SQU) 0 - 20 #/lpf <100 UA MUCUS (test code=MUCU) 1+ #/lpf NONE SEEN BASIC METABOLIC [id number] 14:16:00 Test Item Value Reference Range Comments [...] (test code=CA) 9.4 MG/DL 8.7-10.5 HEPATIC FUNCTION [id number] 14:16:00 Test Item Value Reference Range Comments [...] PHOSPHATASE TOTAL 74 Units/L 50-136 (test code=ALKP) [id number] 14:16:00 Test Item Value Reference Range Comments CK (test code=CKT) 87 Units/L 26-192 [id number] 14:16:00 Test Item Value Reference Range Comments ALCOHOL (test code=ALC) < 3 MG/DL 0-10 0 - 10: Should be interpreted as NEGATIVE. 11 - 50: None to mild euphoria. 51 - 100: Mild influence on vision and dark adaptation. > 80: Legal intoxication; Depression of SOLAR TECH; Increasing degree of poisoning. > 400: Fatalities reported. Results are for medical purposes only and not forlegal or employment evaluative purposes. BASIC METABOLIC [id number] 14:09:00 Test Item Value Reference Range Comments [...] (test code=CA) 9.4 MG/DL 8.7-10.5 HEPATIC FUNCTION [id number] 14:09:00 Test Item Value Reference Range Comments TOTAL PROTEIN (test code=PROT) G/DL 6.4-8.2 ALBUMIN (test code=ALB) G/DL 3.4-5.0 GLOBULIN (test code=GLOB) G/DL 1.5-3.8 ALBUMIN/GLOBULIN RATIO (test code=A/G) 1.1-2.2 BILIRUBIN TOTAL (test code=BILT) MG/DL 0.0-1.0 BILIRUBIN DIRECT (test code=BILD) MG/DL 0.0-0.3 SGOT/AST (test code=AST) Units/L 15-37 SGPT/ALT (test code=ALT) Units/L 30-65 ALKALINE PHOSPHATASE TOTAL (test code=ALKP) Units/L 50-136 [id number] 14:09:00 Test Item Value Reference Range Comments CK (test code=CKT) Units/L 26-192 [id number] 14:09:00 Test Item Value Reference Range Comments ALCOHOL (test code=ALC) MG/DL 0-10 LACTIC ACID [id number] 13:50:00 Test Item Value Reference Range Comments LACTIC ACID POC (test 0.97 MMOL/L 0.90-1.70 Performed by certified code=LACTP) roaster operator at [facility] [id number] 13:48:00 Test Item Value Reference Range Comments GLUBED (test code=GLUBED) 88 MG/DL 65-99 Performed by certified roaster operator at [facility] DRUG OF ABUSE SCREEN [id number] 13:43:00 Test Item Value Reference Range Comments [...] confirmed by alternate methods (i.e., GC/MS) [facility]. Results of screen may not be usedin criminal justice, job performance or professionalcredential review, or infant custody issues. Negative [place] Level ng/ml ----- Cocaine 300 Methamphetamine (Ecstacy) 500 Cannabinoids (THC) 50 Amphetamine 1000 Barbiturates 200 Benzodiazepines 200 Opiates 300 Phencyclidine (PCP) 25 UR HCG [id number] 13:39:00 Test Item Value Reference Range Comments UR HCG QUAL (test NEGATIVE NEGATIVE False negatives may occur when code=HCGQLU) levels of hCGare below 20 mIU/ml. When is still suspected, a new specimenshould be obtained after 48 hours and re-tested.If waiting 48 hours is not medically advisable,the test result should be confirmed using aquantitative hCG assay. UA RFLX [id number] 13:38:00 Test Item Value Reference Range Comments [...] SPECIMEN DESCRIPTION (test Clean Catch code=UASPEC) UA [id number] 13:38:00 Test Item Value Reference Range Comments UA WBC (test code=WBCU) #/hpf <10 UA RBC (test code=RBCU) #/hpf NONE SEEN UA SQUAMOUS CELLS (test code=SQU) #/lpf <100 UA RFLX [id number] 13:38:00 Test Item Value Reference Range Comments [...] SPECIMEN DESCRIPTION (test Clean Catch code=UASPEC) UA [id number] 13:38:00 Test Item Value Reference Range Comments UA WBC (test code=WBCU) #/hpf <10 UA RBC (test code=RBCU) #/hpf NONE SEEN UA SQUAMOUS CELLS (test code=SQU) #/lpf <100 CBC W/AUTO [id number] 13:26:00 Test Item Value Reference Range Comments [...] # (test code=BA#) 0.05 x10 3/uL 0.0-0.2 [id number] 19:07:00 Test Item Value Reference Range Comments LEVETIRACETAM (test 28.7 ug/mL 10.0-40.0 This test was developed and its code=LEVTAM) performance characteristicsdetermined by [employer]. It has not been cleared orapproved by the Food and Drug Administration.Performed At: [address] [id number] Dias MD Ph:[phone] BASIC METABOLIC [id number] 04:58:00 Test Item Value Reference Range Comments [...] 0.60-1.00 CALCIUM (test code=CA) 8.9 MG/DL 8.7-10.5 [id number] 04:58:00 Test Item Value Reference Range Comments MAGNESIUM (test code=MAG) 1.9 MG/DL 1.8-2.4 CBC W/AUTO [id number] 04:08:00 Test Item Value Reference Range Comments [...] X10 3/uL 0.0-0.2 - MRI BRAIN W/O [id number] 13:51:00 Patient Name: SAHRA NETTLES NOVEMBER Unit No: [id number] EXAMS: CPT CODE: [id number] MRI BRAIN W/O CONTRAST 00311 Reason: sz INDICATION: Seizure COMPARISON: CT brain, [...] MD Technologist: Andre Self MRI Trscrpt Dt/ (7292)Aurelio.DW6 Orig Print D/T: S: 09/17/2018 (5250) [facility] CntNAME: SAHRA NETTLES NOVEMBER [address] [facility] PHYS: [place] [address] : 1990 AGE: 27 SEX: F LOC: D.D313 1 PHONE #: [phone] EXAM DATE: 09/17/2018 STATUS: ADM IN FAX #: RAD NO: DC Dt: PAGE 1 Signed [id number] 07:25:00 Test Item Value Reference Range Comments PROLACTIN (test code=PROLAC) 24.6 ng/mL 4.8-23.3 Performed At: [facility] [id number] Sb Man MD Ph:[phone] UA RFLX MICROSCOPIC [id number] 19:02:00 Test Item Value Reference Range Comments [...] met URINE SOURCE: Clean CatchUA RFLX MICROSCOPIC [id number] 18:56:00 Test Item Value Reference Range Comments [...] CULTURE NEEDED? (test code=UACULT) URINE SOURCE: Clean [id number] 15:56:00 Test Item Value Reference Range Comments CK (test code=CKT) 34 Units/L 26-192 BASIC METABOLIC [id number] 12:57:00 Test Item Value Reference Range Comments [...] 0.60-1.00 CALCIUM (test code=CA) 8.6 MG/DL 8.7-10.5 [id number] 12:57:00 Test Item Value Reference Range Comments CK (test code=CKT) 32 Units/L 26-192 CBC W/AUTO [id number] 12:33:00 Test Item Value Reference Range Comments [...] 0.0 X10 3/uL 0.0-0.2 TOTAL IRON BINDING [id number] 05:50:00 Test Item Value Reference Range Comments SERUM IRON (test code=IRON) 17 MCG/DL 50-170 TOTAL IRON BINDING CAPACITY (test code=TIBC) 363 MCG/DL 280-400 IRON SATURATION (test code=FESAT) 5 % 15-50 [id number] 05:50:00 Test Item Value Reference Range Comments FERRITIN (test code=LULI) 11 NG/ML 3-105 HEPATIC FUNCTION [id number] 05:32:00 Test Item Value Reference Range Comments [...] 50-136 (test code=ALKP) - CT HEAD/BRAIN W/O [id number] 20:19:00 Patient Name: SAHRA NETTLES Unit No: [id number] EXAMS: CPT CODE: [id number] CT HEAD/BRAIN W/O CONT 62452 Reason: seizure TECHNIQUE: Contiguous 5 mm images [...] Print D/T: S: 07/2018 (2021) CTDI: DLP: [facility] NAME: SAHRA NETTLES TIERRA [address] [facility] PHYS: WONGJA. - Keanu Váz[place] [address] : 1990 AGE: 27 SEX: F LOC: RichNER PHONE#: [phone] EXAM DATE: 07/2018 STATUS: REG ER FAX #: RAD NO: DC Dt: PAGE 1 Signed Report- XR CHEST 1 [id number] 20:18:00 Patient Name: SAHRA NETTLES Unit No: [id number] EXAMS: CPT CODE: [id number] XR CHEST 1 V 27887 Reason: screen for pneumonia FINDINGS: Single view ofthe chest shows normal heart size and pulmonary vasculature. The lungs are clear bilaterally. There is no focal infiltrate, pleural effusion or pneumothorax. IMPRESSION: No acute cardiopulmonary findings at 2018 Reported and signed by : Lashell Jimenez MD CC: Keanu Vázquez MD; Cristiane Heath Technologist: Edel BURNS Trscrpt Dt/ (2017)t.DKW Orig PrintD/T: S: 09/14/2018 (2020) [facility] NAME: SAHRA NETTLES TIERRA [address] [facility] PHYS: NGA. - Keanu Váz[place] [address] : 1990 AGE: 27 SEX: F LOC: RichNER PHONE #: [phone] EXAM DATE: 09/14/2018 STATUS: REG ER FAX #: RAD NO: DC Dt: PAGE 1 Signed ReportHCG SERUM [id number] 20:04:00 Test Item Value Reference Range Comments HCG SERUM QUAL (test NEGATIVE NEGATIVE False negatives may occur when code=HCGQL) levels of hCGare below 10 mIU/ml. When is still suspected, a new specimenshould be obtained after 48 hours and re-tested.If waiting 48 hours is not medically advisable,the test result should be confirmed using aquantitative hCG assay. BASIC METABOLIC [id number] 19:51:00 Test Item Value Reference Range Comments [...] (test code=CA) 9.3 MG/DL 8.7-10.5 CBC W/AUTO [id number] 19:46:00 Test Item Value Reference Range Comments [...] (test code=BA#) 0.05 x10 3/uL 0.0-0.2 BLOOD [id number] 10:00:00 Test Item Value Reference Range Comments CULTURE (BEAKER) (test bahe=3575) No growth in 5 days HCG, QUANTITATIVE, [id number] 15:37:00 Test Item Value Reference Range Comments GONADOTROPIN, CHORIONIC (HCG) QUANT (BEAKER) 57521 mIU/mL 0-10 (test ebew=507) Non- Females: <10 mIU/mL Females: Gestation Age Reference Range(mIU/mL) 0.2-1 Week 5-50 1-2 Weeks 50-500 2-3 Weeks 100-5,000 3-4Weeks 500-10,000 4 -5 Weeks 1,000-50,000 5-6 Weeks 10,000-100,000 6-8 Weeks 15,000-200,000 2-3 Months 10,000-100,000COMPREHENSIVE METABOLIC [id number] 15:10:00 Test Item Value Reference Range Comments TOTAL PROTEIN (BEAKER) 7.0 gm/dL 6.0-8.3 (test yqux=338) ALBUMIN (BEAKER) (test 3.9 g/dL 3.5-5.0 oqvd=4906) ALKALINE PHOSPHATASE 50 U/L 40-150 (BEAKER) (test qtcn=161) BILIRUBIN TOTAL (BEAKER) 0.5 mg/dL 0.2-1.2 (test aain=521) SODIUM (BEAKER) (test 140 meq/L 136-145 ejvf=207) POTASSIUM (BEAKER) (test 3.4 meq/L 3.5-5.1 bivq=284) CHLORIDE (BEAKER) (test 107 meq/L 98-107 qkbk=428) CO2 (BEAKER) (test 21 meq/L 22-29 yhni=848) BLOOD UREA NITROGEN 6 mg/dL 7-21 (BEAKER) (test ropi=517) CREATININE (BEAKER) (test 0.54 mg/dL 0.57-1.25 imsb=176) GLUCOSE RANDOM (BEAKER) 76 mg/dL 70-105 (test aeiy=532) CALCIUM (BEAKER) (test 9.2 mg/dL 8.4-10.2 wixk=508) AST (SGOT) (BEAKER) (test 57 U/L 5-34 rtki=081) ALT (SGPT) (BEAKER) (test 84 U/L 6-55 aqxd=410) EGFR (BEAKER) (test 135 mL/min/1.73 sq ESTIMATED GFR IS NOT xtnn=9581) m ACCURATE CREATININE CLEARANCE IN PREDICTING GLOMERULAR FILTRATION RATE. ESTIMATED GFR IS NOT APPLICABLE FOR DIALYSIS PATIENTS. CBC W/PLT COUNT & AUTO [id number] 14:53:00 Test Item Value Reference Range Comments WHITE BLOOD CELL COUNT (BEAKER) (test fqrh=260) 9.7 K/ L 3.5-10.5 RED BLOOD CELL COUNT (BEAKER) (test bsyx=222) 4.31 M/ L 3.93-5.22 HEMOGLOBIN (BEAKER) (test ylro=545) 10.0 GM/DL 11.2-15.7 HEMATOCRIT (BEAKER) (test wujz=064) 31.9 % 34.1-44.9 MEAN CORPUSCULAR VOLUME (BEAKER) (test apmd=916) 74.0 fL 79.4-94.8 MEAN CORPUSCULAR HEMOGLOBIN (BEAKER) (test 23.2 pg 25.6-32.2 wcsz=881) MEAN CORPUSCULAR HEMOGLOBIN CONC (BEAKER) (test 31.3 GM/DL 32.2-35.5 rwcx=441) RED CELL DISTRIBUTION WIDTH (BEAKER) (test 19.0 % 11.7-14.4 ftyr=634) PLATELET COUNT (BEAKER) (test sduz=182) 259 K/CU MM 150-450 MEAN PLATELET VOLUME (BEAKER) (test bpql=295) 9.9 fL 9.4-12.3 NUCLEATED RED BLOOD CELLS (BEAKER) (test 0 /100 WBC 0-0 yqmv=471) NEUTROPHILS RELATIVE PERCENT (BEAKER) (test 70 % vvae=599) LYMPHOCYTES RELATIVE PERCENT (BEAKER) (test 21 % ruha=716) MONOCYTES RELATIVE PERCENT (BEAKER) (test 8 % rgas=906) EOSINOPHILS RELATIVE PERCENT (BEAKER) (test 1 % tsqj=915) BASOPHILS RELATIVE PERCENT (BEAKER) (test 1 % mfgw=513) NEUTROPHILS ABSOLUTE COUNT (BEAKER) (test 6.75 K/ L 1.56-6.13 lsoo=768) LYMPHOCYTES ABSOLUTE COUNT (BEAKER) (test 2.01 K/ L 1.18-3.74 nlzl=364) MONOCYTES ABSOLUTE COUNT (BEAKER) (test 0.75 K/ L 0.24-0.36 gqyt=376) EOSINOPHILS ABSOLUTE COUNT (BEAKER) (test 0.07 K/ L 0.04-0.36 jzjt=292) BASOPHILS ABSOLUTE COUNT (BEAKER) (test 0.08 K/ L 0.01-0.08 fxxo=863) IMMATURE GRANULOCYTES-RELATIVE PERCENT (BEAKER) 0 % 0-1 (test qtdv=4937) U/S, , FIRST [id number] 07:52:00Reason for exam:-> Reason for exam:->please include [...] 1 day. An embryonic pole is evident. [place]-rump length measures 0.63 cm, correlating with estimated [...] Garrido Verified Date/Time: 05/17/2017 07:52:37 Reading Location: [facility] C0X Ortho Consult Reading Room PREGNANCY SCREEN, [id number] 05:28:00 Test Item Value Reference Range Comments TEST URINE (BEAKER) (test fbha=286) Positive MR, BRAIN, WITHOUT [id number] 18:54:00Reason for exam:->Stroke evaluationFINAL REPORT MRI brain [...] Verified Date/Time: 05/15/2017 18 :54:11 Reading Location: [facility] Radiology Reading Room EEG AWAKE AND [id number] 12:08:00Reason for exam:->? nonconvulsive statusDATE OF TEST: 2016DATE OF REPORT 05/15/2017 ACC: [id number] EE Start time: 1034 Stop time: 1054 ICD-10: R56.9CPT Code: 54646SGUIGPW: 26 y/o woman with epilepsy found down [...] recordings.Marika Smith M.D.Neurophysiology FellowSwathi Harper M.D.Neurophysiology Attending [id number] 04:27:00 Test Item Value Reference Range Comments PROCALCITONIN (BEAKER) (test qvzq=2694) 0.17 ng/mL <0.05 SEPSIS RISK (ng/mL)Low: 0.05-0.50Intermediate: 0.51-2.00High: & gt;=[id number] 03:15:00 Test Item Value Reference Range Comments PHOSPHORUS (BEAKER) (test caiw=259) 3.1 mg/dL 2.3-4.7 [id number] 03:15:00 Test Item Value Reference Range Comments MAGNESIUM (BEAKER) (test dzrj=486) 1.9 mg/dL 1.6-2.6 BASIC METABOLIC [id number] 03:15:00 Test Item Value Reference Range Comments SODIUM (BEAKER) (test 139 meq/L 136-145 lqpo=925) POTASSIUM (BEAKER) (test 3.7 meq/L 3.5-5.1 oncl=348) CHLORIDE (BEAKER) (test 110 meq/L 98-107 udfr=477) CO2 (BEAKER) (test 19 meq/L 22-29 fvcx=193) BLOOD UREA NITROGEN 8 mg/dL 7-21 (BEAKER) (test igis=235) CREATININE (BEAKER) (test 0.57 mg/dL 0.57-1.25 tleg=529) GLUCOSE RANDOM (BEAKER) 92 mg/dL 70-105 (test xsri=133) CALCIUM (BEAKER) (test 9.2 mg/dL 8.4-10.2 twqo=444) EGFR (BEAKER) (test 127 mL/min/1.73 sq m ESTIMATED GFR IS NOT zvno=6539) ACCURATE CREATININE CLEARANCE IN PREDICTING GLOMERULAR FILTRATION RATE. ESTIMATED GFR IS NOT APPLICABLE FOR DIALYSIS PATIENTS. CREATINE KINASE (CK)2017-05-15 03:15:00 Test Item Value Reference Range Comments CREATINE KINASE TOTAL (BEAKER) (test gffe=072) 200 U/L 29-200 LACTIC ACID, VENOUS, WHOLE [id number] 03:09:00 Test Item Value Reference Range Comments LACTATE BLOOD VENOUS (2) (BEAKER) (test 0.6 mmol/L 0.5-2.2 vdfu=3518) Effective 10/17/2015: Units/Reference Range ChangeNew: 0.5-2.2 mmol/L Previous: 5 -20 mg/dLPROTHROMBIN TIME/[id number] 03:07:00 Test Item Value Reference Range Comments PROTIME (BEAKER) (test nrfu=737) 14.5 seconds 11.7-14.7 INR (BEAKER) (test gfge=819) 1.1 <=5.9 RECOMMENDED COUMADIN/WARFARIN INR THERAPY RANGESSTANDARD DOSE: 2.0 - 3.0 Includes: PROPHYLAXIS forvenous thrombosis, systemic embolization; TREATMENT for venous thrombosis and/or pulmonary embolus.HIGH RISK: Target INR is 2.5-3.5 for patients with mechanical heart valves.CBC W/PLT COUNT & AUTO [id number] 03:00:00 Test Item Value Reference Range Comments WHITE BLOOD CELL COUNT (BEAKER) (test snhx=101) 21.6 K/ L 3.5-10.5 RED BLOOD CELL COUNT (BEAKER) (test lsbs=518) 4.04 M/ L 3.93-5.22 HEMOGLOBIN (BEAKER) (test nhqc=694) 9.3 GM/DL 11.2-15.7 HEMATOCRIT (BEAKER) (test xmqz=365) 30.1 % 34.1-44.9 MEAN CORPUSCULAR VOLUME (BEAKER) (test sjvc=826) 74.5 fL 79.4-94.8 MEAN CORPUSCULAR HEMOGLOBIN (BEAKER) (test 23.0 pg 25.6-32.2 asft=830) MEAN CORPUSCULAR HEMOGLOBIN CONC (BEAKER) (test 30.9 GM/DL 32.2-35.5 hjvh=706) RED CELL DISTRIBUTION WIDTH (BEAKER) (test 19.3 % 11.7-14.4 dsqm=138) PLATELET COUNT (BEAKER) (test hkqd=095) 250 K/CU MM 150-450 MEAN PLATELET VOLUME (BEAKER) (test uysr=814) 10.3 fL 9.4-12.3 NUCLEATED RED BLOOD CELLS (BEAKER) (test 0 /100 WBC 0-0 wgpn=228) NEUTROPHILS RELATIVE PERCENT (BEAKER) (test 83 % tufa=356) LYMPHOCYTES RELATIVE PERCENT (BEAKER) (test 9 % jwja=951) MONOCYTES RELATIVE PERCENT (BEAKER) (test 8 % qhba=965) EOSINOPHILS RELATIVE PERCENT (BEAKER) (test 0 % sjfv=644) BASOPHILS RELATIVE PERCENT (BEAKER) (test 0 % axvb=135) NEUTROPHILS ABSOLUTE COUNT (BEAKER) (test 17.85 K/ L 1.56-6.13 gnbd=578) LYMPHOCYTES ABSOLUTE COUNT (BEAKER) (test 1.98 K/ L 1.18-3.74 zgaw=228) MONOCYTES ABSOLUTE COUNT (BEAKER) (test 1.62 K/ L 0.24-0.36 yjdt=571) EOSINOPHILS ABSOLUTE COUNT (BEAKER) (test 0.01 K/ L 0.04-0.36 kebm=986) BASOPHILS ABSOLUTE COUNT (BEAKER) (test 0.04 K/ L 0.01-0.08 qmyj=201) IMMATURE GRANULOCYTES-RELATIVE PERCENT (BEAKER) 1 % 0-1 (test dath=8997) RAD, CHEST, 1 VIEW, NON [id number] 01:06:00Reason for exam:->possible infectionShould this be performed [...] Verified Date/Time: 2016 01:06:06 Reading Location: [address] Reading Room
[2018-12-25 19:16] LABS: Absolute Lymphocytes (CBC) 2.7 K/uL (0.7-4.9); Basophils % 1.1 % (0-1.3); Eosinophils % 1.6 % (0-4.4); Hematocrit 35.5 % (36.0-45.0); Lymphocytes % 28.2 % (15.3-44.8); MPV 8.8 fL (7.6-11.3); Monocytes % 9.7 % (3.3-12.3); RBC Red Blood Cell Count 4.74 M/uL (3.86-4.86)
[2018-12-25] MEDS ORDERED: NA CHLORIDE 0.9% 100 ML IV ONE (19:28)
[2018-12-25] MEDS ORDERED: LEVETIRACETAM 500 MG/5 ML VIAL IV ONE (19:28)
[2018-12-25] MEDS ORDERED: NA CHLORIDE 0.9% 1,000 ML ONE (19:28)
[2018-12-25 19:35] LABS: Potassium 3.9 mmol/L (3.5-5.1)
[2018-12-25] MEDS ORDERED: ACETAMINOPHEN 650MG/RECT SUPP PR ONE (19:36)
[2018-12-25 19:41] LABS: Barbiturates NEGATIVE (NEGATIVE); Benzodiazepines NEGATIVE (NEGATIVE); Cocaine NEGATIVE (NEGATIVE); METHAMPHETAM NEGATIVE (NEGATIVE); Methadone NEGATIVE (NEGATIVE); Opiates NEGATIVE (NEGATIVE); Phencyclidine NEGATIVE (NEGATIVE); THC Cannibis NEGATIVE (NEGATIVE)
[2018-12-25 19:42] LABS: ALT/SGPT 22 U/L (12-78); AST/SGOT 20 U/L (15-37); Alkaline Phosphatase 73 U/L (45-117); Bilirubin Direct < 0.1 mg/dL (0-0.2); Bilirubin Total 0.3 mg/dL (0.2-1.0); Protein, Total 7.9 g/dL (6.4-8.2)
[2018-12-25] MEDS ORDERED: MIDAZOLAM HCL 2 MG/2 ML INJ ONE (19:53)
[2018-12-25 20:27] LABS: CSF Glucose 63 mg/dL (40-70)
--- NOTE | 2018-12-25 20:40 | RAD REPORT ---
EXAM DESCRIPTION: CT - Head Brain Wo Cont - 12/25/2018 8:30 pm CLINICAL HISTORY: CONFUSED Headache, altered consciousness, drowsiness COMPARISON: Head Brain Wo Cont dated 05/26/2018; Head Brain Wo Cont dated 04/08/2018 TECHNIQUE: All CT scans are performed using dose optimization technique as appropriate and may inclu de automated exposure control or mA/KV adjustment according to patient size. FINDINGS: No intracranial hemorrhage, hydrocephalus or extra-axial fluid collection.No areas of brai n edema or evidence of midline shift. The paranasal sinuses and mastoids are clear. The calvarium is intact. IMPRESSION: No acute intracranial abnormality.
[2018-12-25 21:06] LABS: Body Fluid Source CSF; Color of fluid Colorless (COLORLESS)
[2018-12-25 21:07] LABS: Appearance CLEAR (CLEAR); Body Fluid WBC 1 /mm^3
[2018-12-25 21:16] LABS: Appearance CLEAR (CLEAR); Body Fluid Source CSF; Body Fluid WBC 1 /mm^3; Color of fluid Colorless (COLORLESS); Fluid Total Volume 4 ml
[2018-12-25 22:08] LABS: Urine Blood NEGATIVE (NEG); Urine Glucose NEGATIVE (NEG); Urine Protein TRACE (NEG)
--- NOTE | 2018-12-25 22:16 | EKG ---
Test Date: 2018-12-24 Test Time: 21:36:39 Crew Dispatcher: DORY MEASUREMENT RESULTS: Intervals: Rate: 92 WY: 148 QRSD: 78 QT: 344 QTc: 425 [place]: P: 46 WY: 148 QRS: 21 T: 10 INTERPRETIVE STATEMENTS: Normal sinus rhythm Normal ECG Compared to ECG 12/23/2018 19:41:26 Sinus tachycardia no longer present Myocardial infarct finding no longer present Electronically Signed On 12-25-18 22:16:03 CDT by Gerard Edwards
--- NOTE | 2018-12-26 01:01 | EDPHYS ---
Physician Documentation [facility] Name: Heather Hope Age: 28 yrs Sex: Female : 1990 Arrival Date: 12/25/2018 Time: 18:55 Bed 3 Private MD: ED Physician Silvio Mendoza HPI: 12/25 18:56 This 28 yrs old Female presents to ER via Unassigned with complaints of rn Probable Seizure. 18:58 The patient presents after having a possible seizure episode. Character of seizure(s): rn Motor activity: generalized, Incontinence: none, Apnea: the patient did not experience apnea, Circulation: the patient did not experience evidence of pulse disturbance. Associated injury: The patient did not suffer any apparent associated injury. The patient has experienced similar episodes in the past. Patient brought by EMS, found in grass for unknown length of time, seen last night by Dr mendoza, negative w/u for fever and seizure. Has known seizure disorder, takes keppra and other medication, no seizure like activity noted by EMS, but altered and rocking back and forth. Still febrile. Patient not cooperative, seems agitated.. 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 - Social history:: Smoking status: unknown. - Ebola Screening: : Unable to complete screening because. - Unable to obtain history due to: patient being uncooperative. ROS: 19:00 Unable to obtain ROS due to patient being uncooperative. rn Exam: 18:58 Constitutional: Agitated, no seizure activity, rocking back and forth and yelling at lab rn Head/Face: Normocephalic, atraumatic. Eyes: Pupils equal round and reactive to light, no nystagmus ENT: dry MM Neck: Trachea midline, no thyromegaly or masses palpated, resistant to neck mobility, difficult to assess for meningeal signs Cardiovascular: tachycardic, regular, no murmur Respiratory: mild tachypnea, clear bilateral breath sounds Abdomen/GI: soft, non-tender MS/ Extremity: Pulses equal, no cyanosis. Neuro: Awake, rocking, moving all 4 extremities, but not cooperative Vital Signs: 20:07 BP 124 / 73; Pulse 96; Resp 20 S; Temp 98.5(TE); Pulse Ox 100% on R/A; Weight 81.65 kg jd3 (R); Pain 0/10; 21:22 BP 122 / 75; Pulse 85; Resp 19 S; Pulse Ox 100% on R/A; Pain 0/10; jd3 22:10 BP 125 / 81; Pulse 95; Resp 18 S; Pulse Ox 99% on R/A; Pain 0/10; jd3 23:12 BP 126 / 80; Pulse 74; Resp 17 S; Pulse Ox 100% on R/A; Pain 0/10; jd3 12/26 00:08 BP 133 / 81; Pulse 67; Resp 18 S; Pulse Ox 100% on R/A; Pain 0/10; jd3 02:34 BP 120 / 80; Pulse 65; Resp 18 S; Temp 98.1(TE); Pulse Ox 99% on R/A; Pain 0/10; jd3 04:01 BP 130 / 82; Pulse 94; Resp 17 S; Pulse Ox 100% on R/A; Pain 0/10; jd3 04:37 BP 113 / 73; Pulse 71; Resp 17 S; Pulse Ox 99% on R/A; Pain 0/10; jd3 [place] Coma Score: 12/25 20:09 Eye Response: to pain(2). Verbal Response: incomprehensible(2). Motor Response: jd3 localizes pain(5). Total: 9. 20:12 Eye Response: to pain(2). Verbal Response: incomprehensible(2). Motor Response: jd3 localizes pain(5). Total: 9. 21:22 Eye Response: to pain(2). Verbal Response: incomprehensible(2). Motor Response: jd3 localizes pain(5). Total: 9. 22:10 Eye Response: to pain(2). Verbal Response: incomprehensible(2). Motor Response: jd3 localizes pain(5). Total: 9. 23:12 Eye Response: to pain(2). Verbal Response: oriented(5). Motor Response: localizes jd3 pain(5). Total: 12. 12/26 00:08 Eye Response: spontaneous(4). Verbal Response: oriented(5). Motor Response: obeys jd3 commands(6). Total: 15. 01:13 Eye Response: spontaneous(4). Verbal Response: oriented(5). Motor Response: obeys jd3 commands(6). Total: 15. 02:34 Eye Response: spontaneous(4). Verbal Response: oriented(5). Motor Response: obeys jd3 commands(6). Total: 15. 04:03 Eye Response: spontaneous(4). Verbal Response: oriented(5). Motor Response: obeys jd3 commands(6). Total: 15. Procedures: 00:55 Lumbar Puncture: Patient placed in right lateral decubitus position. Collected 5 ml's gs of clear fluid. Puncture site dressed with band aid, Patient tolerated well. MDM: 12/25 18:56 Patient medically screened. rn 19:00 Differential diagnosis: drug overdose, seizure, fever unknown origin, meningitis, rn encephalitis. Transition of care: After a detail discussion of the patient's case, care is transferred to Silvio Mendoza MD. ED course: Pt signed out to Dr. Mendoza pending w/u, will likely need LP to complete workup as not performed last visit. . 12/26 00:55 Data reviewed: vital signs, nurses notes. Counseling: I had a detailed discussion with gs the patient and/or guardian regarding: the historical points, exam findings, and any diagnostic results supporting the discharge/admit diagnosis, lab results, radiology results, the need for outpatient follow up. Response to treatment: the patient's symptoms have markedly improved after treatment. 00:55 ED course: improved back to baseline sleeping arousable. workup negative including LP. gs plan discharge. 12/25 18:57 Order name: CBC with Diff; Complete Time: 19:25 rn 12/25 18:57 Order name: Basic Metabolic Panel; Complete Time: 20:56 rn 12/25 18:57 Order name: Flu; Complete Time: 20:56 rn 12/25 18:57 Order name: Strep; Complete Time: 20:56 rn 12/25 19:00 Order name: Acetaminophen rn 12/25 19:00 Order name: ETOH Level 12/25 19:00 Order name: Hepatic Function 12/25 19:00 Order name: Salicylate; Complete Time: 20:56 12/25 19:00 Order name: Urine Drug Screen; Complete Time: 20:56 12/25 19:01 Order name: Acetaminophen Level; Complete Time: 20:56 [facility] 12/25 19:01 Order name: Alcohol Serum/Plasma; Complete Time: 20:56 [facility] 12/25 19:01 Order name: Liver (Hepatic) Function; Complete Time: 20:56 [facility] 12/25 19:22 Order name: Urine Dipstick--Ancillary (enter results) [facility] 12/25 19:22 Order name: Urine --Ancillary (enter results) [facility] 12/25 18:57 Order name: IV Start; Complete Time: 20:14 12/25 19:00 Order name: EKG; Complete Time: 19:02 12/25 19:31 Order name: Blood Culture* 12/25 19:31 Order name: Lactate; Complete Time: 21:43 12/25 19:31 Order name: Procalcitonin 12/25 19:31 Order name: Csf Culture 12/25 19:31 Order name: Fluid Cell Count,Body; Complete Time: 21:43 12/25 19:31 Order name: Spinal Fluid Profile; Complete Time: 21:43 12/25 19:35 Order name: CPK; Complete Time: 21:43 12/25 19:38 Order name: Throat Culture [facility] 12/25 20:01 Order name: CT Head Brain wo Cont; Complete Time: 20:56 12/25 19:00 Order name: EKG - Nurse/Tech; Complete Time: 20:47 12/25 19:00 Order name: Labs collected and sent; Complete Time: 20:47 12/25 19:00 Order name: Urine Dipstick-Ancillary (obtain specimen); Complete Time: 19:21 12/25 19:21 Order name: Straight Cath - Urine; Complete Time: 19:21 aa5 12/25 19:31 Order name: LP Consents; Complete Time: 20:14 12/25 19:31 Order name: LP Setup; Complete Time: 20:14 Administered Medications: 07/13 19:15 Drug: NS 0.9% 1000 ml Route: IV; Rate: 1000 ml; Site: right antecubital; jb4 20:30 Follow up: Response: No adverse reaction; IV Status: Completed infusion; IV Intake: jd3 1000ml 19:15 Drug: Keppra 1000 mg Route: IV; Rate: 1 calculated rate; Site: right antecubital; jb4 20:15 Follow up: Response: No adverse reaction; IV Status: Completed infusion jd3 19:20 Drug: Tylenol Suppository 650 mg Route: [place]; jb4 20:20 Follow up: Response: No adverse reaction jd3 20:13 Not Given (Physician Discretion): Versed 2 mg IVP once; hold for lp jd3 Point of Care Testing: Blood Glucose: : Blood Glucose: 93 mg/dL; rb1 Ranges: Critical Glucose Levels:Adult <50 mg/dl or >400 mg/dl <40 mg/dl or >180 mg/dl Disposition: 12/26/18 00:59 Discharged to Home. Impression: Epilepsy and recurrent seizures. - Condition is Stable. - Discharge Instructions: Seizure, Adult. - Medication Reconciliation Form, Thank You Letter, Antibiotic Education, Prescription Opioid Use form. - Follow up: Private Physician; When: 2 - 3 days; Reason: Re-evaluation by your physician. Signatures: Dispatcher [employer] EDMoi Damian MD MD rn Calderon, Audri RN RN aa5 Don Ag RN RN jb4 Silvio Mendoza MD MD gs Davies, Jonathon, RN RN jd3 Corrections: (The following items were deleted from the chart) 19:03 18:58 Constitutional: Agitated, no seizure activity, rocking back and forth and yelling rn at staff pharmac[facility] 12/26 05:08 00:59 12/26/2018 00:59 Discharged to Home. Impression: Epilepsy and recurrent seizures. jd3 Condition is Stable. Forms are Medication Reconciliation Form, Thank You Letter, Antibiotic Education, Prescription Opioid Use. Follow up: Private Physician; When: 2 - 3 days; Reason: Re-evaluation by your physician. gs
--- NOTE | 2018-12-26 01:01 | ER ---
Nurse's Notes [facility] Name: Heather Hope Age: 28 yrs Sex: Female : 1990 Arrival Date: 12/25/2018 Time: 18:55 Bed 3 Private MD: Diagnosis: Epilepsy and recurrent seizures Presentation: 12/25 18:55 Presenting complaint: EMS states: called out for unresponsive patient lying down on aa5 grass outside an apartment complex. EMS reports pt has history of seizures, EMS reports pt was awake upon their arrival and uncooperative. Pt screaming "I am not putting on an act". Pt awake, currently not following commands and not answering questions. 18:55 Transition of care: patient was not received from another setting of care. Onset of aa5 symptoms was December 25, 2018. Risk Assessment: Do you want to hurt yourself or someone else? Unable to obtain. Care prior to arrival: None. 18:55 Acuity: DARLYN 2 aa5 18:55 Method Of Arrival: EMS: [facility] aa5 20:12 Initial Sepsis Screen: Does the patient meet any 2 criteria? Altered Mental Status. HR jd3 > 90 bpm. Yes Does the patient have a suspected source of infection? No. Patient's initial sepsis screen is negative. 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 - Social history:: Smoking status: unknown. - Ebola Screening: : Unable to complete screening because. - Unable to obtain history due to: patient being uncooperative. Screenin:10 Abuse screen: no signs of abuse noted. Nutritional screening: No deficits noted. jd3 21:22 Tuberculosis screening: No symptoms or risk factors identified. Fall Risk IV access (20 jd3 points). Gait- Impaired (20 pts.). Total Green Fall Scale indicates Low Risk Score (25-44 pts). Fall prevention measures have been instituted. Side Rails Up X 2 Placed close to Nursing Station Frequent Obs/Assesments occuring. Assessment: 19:00 General: Appears distressed, uncomfortable, Behavior is uncooperative. Pain: Unable to jb4 use pain scale. Patient is disoriented. Neuro: Level of Consciousness is awake, confused, Oriented to none. Cardiovascular: Warm, clammy. Respiratory: Airway is patent Respiratory effort is even, labored, Respiratory pattern is symmetrical, hyperventilation. GI: No signs and/or symptoms were reported involving the gastrointestinal system. : No signs and/or symptoms were reported regarding the genitourinary system. EENT: No signs and/or symptoms were reported regarding the EENT system. Derm: Skin is intact, Skin is diaphoretic, Skin is normal, Skin temperature is warm. Musculoskeletal: Circulation, motion, and sensation intact. Range of motion: intact in all extremities. 19:45 Reassessment: Report given to CLAUDIA Weir. jb4 20:02 Reassessment: report received from Mundo TAYLOR. Dr. Olga oliveraing LP at bedside. jd3 General: Appears comfortable, well nourished, Behavior is drowsy. Pain: Unable to use pain scale. Patient is disoriented. FLACC scale score is 0 out of 10. Neuro: Level of Consciousness is post ictal, Oriented to none. Cardiovascular: Heart tones S1 S2 present Capillary refill < 3 seconds Patient's skin is warm and dry. Rhythm is sinus rhythm. Respiratory: Airway is patent Respiratory effort is even, unlabored, Respiratory pattern is regular, symmetrical, Breath sounds are clear bilaterally. GI: Abdomen is round non-distended, Bowel sounds present X 4 quads. Abd is soft and non tender X 4 quads. : No signs and/or symptoms were reported regarding the genitourinary system. EENT: No signs and/or symptoms were reported regarding the EENT system. Derm: Skin is intact, Skin is diaphoretic, Skin is normal, Skin temperature is warm. 21:20 Reassessment: No changes from previously documented assessment. Patient and/or family jd3 updated on plan of care and expected duration. Pain level reassessed. pt with even and unlabored respirations, responding to pain. monitoring vital signs. 22:08 Reassessment: Patient and/or family updated on plan of care and expected duration. Pain jd3 level reassessed. pt lying in bed with eyes closed, even and unlabored respirations. responds to painful stimulus. seizure pads in place. 23:09 Reassessment: Patient and/or family updated on plan of care and expected duration. Pain jd3 level reassessed. pt tuning self. responds to painful stimulus. even and unlabored respirations. seizure pads in place. lungs clear to auscultate. A\\T\\O X 3 when awoke. pt still drowsy. 12/26 00:06 Reassessment: Patient appears in no apparent distress at this time. Patient and/or jd3 family updated on plan of care and expected duration. Pain level reassessed. Patient is alert, oriented x 3, equal unlabored respirations, skin warm/dry/pink. pt assisted to wheelchair and to the restroom. pt ambulated with even and steady gait into and out of restroom to wheelchair. pt's boyfriend called and he reported he will not be able to pick her up till 0500. pt is awake and alert A\\T\\O X 4. Patient denies pain at this time. 00:08 Neuro: Level of Consciousness is awake, alert, obeys commands, Oriented to person, jd3 place, time, situation. 01:13 Reassessment: Patient appears in no apparent distress at this time. Patient and/or jd3 family updated on plan of care and expected duration. Pain level reassessed. Patient is alert, oriented x 3, equal unlabored respirations, skin warm/dry/pink. Patient denies pain at this time. 02:35 Reassessment: Patient appears in no apparent distress at this time. Patient and/or jd3 family updated on plan of care and expected duration. Pain level reassessed. Patient is alert, oriented x 3, equal unlabored respirations, skin warm/dry/pink. resting in bed with eyes closed, even and unlabored respirations, pt denied pain. awaiting discharge. Patient denies pain at this time. 04:01 Reassessment: Patient appears in no apparent distress at this time. No changes from jd3 previously documented assessment. Patient and/or family updated on plan of care and expected duration. Pain level reassessed. Patient is alert, oriented x 3, equal unlabored respirations, skin warm/dry/pink. Patient denies pain at this time. 04:40 Reassessment: Patient appears in no apparent distress at this time. No changes from jd3 previously documented assessment. Patient and/or family updated on plan of care and expected duration. Pain level reassessed. Patient is alert, oriented x 3, equal unlabored respirations, skin warm/dry/pink. 05:04 Reassessment: Patient appears in no apparent distress at this time. Patient and/or d3 family updated on plan of care and expected duration. Pain level reassessed. Patient is alert, oriented x 3, equal unlabored respirations, skin warm/dry/pink. pt's boyfriend arrived to take pt home, pt reported understanding of discharge instructions. even and steady gait upon discharge. 05:06 Neuro: Level of Consciousness is awake, alert, obeys commands, Oriented to person, jd3 place, time, situation. Vital Signs: 12/25 20:07 BP 124 / 73; Pulse 96; Resp 20 S; Temp 98.5(TE); Pulse Ox 100% on R/A; Weight 81.65 kg jd3 (R); Pain 0/10; 21:22 BP 122 / 75; Pulse 85; Resp 19 S; Pulse Ox 100% on R/A; Pain 0/10; jd3 22:10 BP 125 / 81; Pulse 95; Resp 18 S; Pulse Ox 99% on R/A; Pain 0/10; jd3 23:12 BP 126 / 80; Pulse 74; Resp 17 S; Pulse Ox 100% on R/A; Pain 0/10; jd3 12/26 00:08 BP 133 / 81; Pulse 67; Resp 18 S; Pulse Ox 100% on R/A; Pain 0/10; jd3 02:34 BP 120 / 80; Pulse 65; Resp 18 S; Temp 98.1(TE); Pulse Ox 99% on R/A; Pain 0/10; jd3 04:01 BP 130 / 82; Pulse 94; Resp 17 S; Pulse Ox 100% on R/A; Pain 0/10; jd3 04:37 BP 113 / 73; Pulse 71; Resp 17 S; Pulse Ox 99% on R/A; Pain 0/10; jd3 [place] Coma Score: 12/25 20:09 Eye Response: to pain(2). Verbal Response: incomprehensible(2). Motor Response: jd3 localizes pain(5). Total: 9. 20:12 Eye Response: to pain(2). Verbal Response: incomprehensible(2). Motor Response: jd3 localizes pain(5). Total: 9. :22 Eye Response: to pain(2). Verbal Response: incomprehensible(2). Motor Response: jd3 localizes pain(5). Total: 9. 22:10 Eye Response: to pain(2). Verbal Response: incomprehensible(2). Motor Response: jd3 localizes pain(5). Total: 9. 23:12 Eye Response: to pain(2). Verbal Response: oriented(5). Motor Response: localizes jd3 pain(5). Total: 12. 12/26 00:08 Eye Response: spontaneous(4). Verbal Response: oriented(5). Motor Response: obeys jd3 commands(6). Total: 15. 01:13 Eye Response: spontaneous(4). Verbal Response: oriented(5). Motor Response: obeys jd3 commands(6). Total: 15. 02:34 Eye Response: spontaneous(4). Verbal Response: oriented(5). Motor Response: obeys jd3 commands(6). Total: 15. 04:03 Eye Response: spontaneous(4). Verbal Response: oriented(5). Motor Response: obeys jd3 commands(6). Total: 15. ED Course: 12/25 18:55 Patient arrived in ED. aa5 18:55 Steve Arreaga PA is PHCP. cp 18:55 Moi Avalos MD is Attending Physician. cp 18:55 Arm band placed on Patient placed in an exam room, on a stretcher. aa5 18:59 Triage completed. aa5 19:21 Straight cath inserted, using sterile technique, 16 Fr. Specimen obtained. Returned aa5 clear yellow urine. Patient tolerated well. 19:24 Attending Physician role handed off by Moi Avalos MD 19:24 Silvio Espinoza MD is Attending Physician. gs 20:02 Eric Powell RN is Primary Nurse. jd3 20:11 Patient has correct armband on for positive identification. Placed in gown. Bed in low jd3 position. Call light in reach. Side rails up X2. Seizure precautions initiated. 20:[address] mw3 20:29 CT completed. Patient tolerated procedure well. Patient moved back from CT. mw3 20:29 CT Head Brain wo Cont In Process Unspecified. EDMS 21:05 First set of blood cultures drawn Second set of blood cultures drawn by me. Inserted rr5 saline lock: 22 gauge in left antecubital area, using aseptic technique. Blood collected. 12/26 00:09 No provider procedures requiring assistance completed. jd3 05:07 IV discontinued, intact, bleeding controlled, No redness/swelling at site. Pressure jd3 dressing applied. Administered Medications: 12/25 19:15 Drug: NS 0.9% 1000 ml Route: IV; Rate: 1000 ml; Site: right antecubital; jb4 20:30 Follow up: Response: No adverse reaction; IV Status: Completed infusion; IV Intake: jd3 1000ml 19:15 Drug: Keppra 1000 mg Route: IV; Rate: 1 calculated rate; Site: right antecubital; jb4 20:15 Follow up: Response: No adverse reaction; IV Status: Completed infusion jd3 19:20 Drug: Tylenol Suppository 650 mg Route: [place]; jb4 20:20 Follow up: Response: No adverse reaction jd3 20:13 Not Given (Physician Discretion): Versed 2 mg IVP once; hold for lp jd3 Point of Care Testing: Blood Glucose: 19:19 Blood Glucose: 93 mg/dL; rb1 Ranges: Intake: 20:30 IV: 1000ml; Total: 1000ml. jd3 Outcome: 12/26 00:59 Discharge ordered by . 05:05 Discharged to home ambulatory, with family. jd3 05:05 Condition: stable 05:05 Discharge instructions given to patient, family, Instructed on discharge instructions, follow up and referral plans. Demonstrated understanding of instructions, follow-up care. 05:08 Patient left the ED. jd3 Signatures: Dispatcher [employer] EDMS Mio Avalos MD MD rn Calderon, Audri, RN RN aa5 Steve Arreaga PA PA cp Barber, Rebecca, RN RN rb1 Don Ag RN RN jb4 Silvio Espinoza MD MD gs Davies, Jonathon, RN RN jd3 Ita Talley mw3 Chicho Colunga RN RN rr5 Corrections: (The following items were deleted from the chart) 12/25 21:05 21:05 Inserted saline lock: 22 gauge in left antecubital area, using aseptic technique. rr5 Blood collected. rr5 21:05 21:05 Second set of blood cultures drawn by me, rr5 rr5 23:11 22:08 Reassessment: Patient and/or family updated on plan of care and expected jd3 duration. Pain level reassessed. pt lying in bed with eyes closed, even and unlabored respirations. responds to painful stimulus. seizure percussions in place. jd3 23:11 23:09 Reassessment: Patient and/or family updated on plan of care and expected jd3 duration. Pain level reassessed. pt tuning self. responds to painful stimulus. even and unlabored respirations. jd3 23:16 23:12 GCS: 9, jd3 jd3 23:18 23:09 Reassessment: Patient and/or family updated on plan of care and expected jd3 duration. Pain level reassessed. pt tuning self. responds to painful stimulus. even and unlabored respirations. seizure pads in place. lungs clear to auscultate. A\\T\\O X 0. jd3 23:19 23:12 GCS: 11, jd3 jd3 23:22 20:07 BP 124 / 73; Pulse 96bpm; Resp 20bpm; Spontaneous; Pulse Ox 100% RA; Temp 98.5F jd3 Temporal; Pain 0/10; jd3 12/26 05:07 05:04 Reassessment: Patient appears in no apparent distress at this time. Patient jd3 and/or family updated on plan of care and expected duration. Pain level reassessed. Patient is alert, oriented x 3, equal unlabored respirations, skin warm/dry/pink. pt's boyfriend arrived to take pt home, pt reported understanding of discharge instructions. even and steady gait upon discharge. jd3
[2018-12-26 05:49] VITALS: TEMP 98.1
[2018-12-26 05:52] VITALS: BP 113/73; O2SAT 99
--- NOTE | 2018-12-26 20:11 | EKG ---
Test Date: 2018-12-25 Test Time: 20:42:43 Puffer Tender: JUSTIN MEASUREMENT RESULTS: Intervals: Rate: 93 NE: 142 QRSD: 74 QT: 344 QTc: 427 [place]: P: 51 NE: 142 QRS: 13 T: 9 INTERPRETIVE STATEMENTS: Normal sinus rhythm Normal ECG Compared to ECG 12/24/2018 21:36:39 No significant changes Electronically Signed On 12-26-18 20:09:12 CDT by Gerard Edwards
== END 2018-12-26 05:08 | disposition home or self-care (01) ==
LOC: ER 18:54
PROC: 009U3ZX Drainage of Spinal Canal, Percutaneous Approach, Diagnostic (ICD-10-PCS; principal; 2018-12-26)
DX: G40.802 Other epilepsy, not intractable, without status epilepticus (principal)
CPT/HCPCS: 36415; 51702; 62270; 70450; 80048; 80076; 80307; 80320; 80329; 81003; 81025; 82550; 82945; 82962; 83605; 84145; 84157; 85025; 87040; 87070; 87081; 87205; 87804; 89050; 93005; 96365; 99285; J1953; J2250; J7030

== ENCOUNTER 2019-02-02 16:27 | Emergency (ER) | payer OTHER ==
--- OUTSIDE RECORDS SUMMARY | 2019-02-02 16:29 | XMS REPORT | Clinical Summary ---
:1990 Author Organization [facility] Address [address] [place] [address] Care Team Providers Name Role Phone Unavailable Primary Care Provider Unavailable Allergies No Known Allergies Medications Medication Sig Dispensed Refills Start Date End Date Status levETIRAcetam Take 1 tablet 60 tablet 2 05/19/2017 Active (KEPPRA) 1000 MG (1,000 mg tablet total) by mouth 2 (two) times daily. vitamin Take 1 tablet 90 tablet 3 05/20/2017 Active w/unvicjs-yupv-irklxc by mouth daily. ( PLUS) 27 mg [...] Not on file Results Not on fileafter 02/01/2018 Insurance Payer Benefit Plan / Group Subscriber ID Type Phone Address [place]ICA[place] xxxxxxxxx Medicaid Advance Directives For more information, please contact:[address] [phone] Code Status Date Activated Date Inactivated Comments Full Code 05/14/2017 10:10 PM 05/19/2017 2:55 PM This code status was determined by: Patient
--- OUTSIDE RECORDS SUMMARY | 2019-02-02 16:30 | XMS REPORT ---
:1990 [facility] Address [address] [place] [address] Care Team Providers Name Role Phone MILES [...] (test code=VLDL) 8 MG/DL 3-60 RAPID PLASMA [id number] 10:31:00 Test Item Value Reference Range Comments RAPID PLASMA REAGIN (test code=RPR) Nonreactive Nonreactive GLYCOSYLATED HEMOGLOBIN (HA1C)2018-12-07 10:05:00 Test Item Value Reference Range Comments GLYCOSYLATED HEMOGLOBIN (HA1C) (test 5.8 % TOT HB 4.5-6.2 code=GLYHGB) [id number] 15:31:00 Test Item Value Reference Range Comments ACETAMINOPHEN (test < 1 MCG/ML 10-30 Acetaminophen is possibly code=ACET) toxic at levels of: 1. more than 150 MCG/ML 4 hours post ingestion. 2. more than 50 MCG/ML 12 hours post ingestion. [id number] 15:31:00 Test Item Value Reference Range Comments SALICYLATE (test code=BOSSMAN) < 3 MG/DL 0-20 Reference Range: Analgesic.................. < 10 mg/dl Therapeutic................ 15-20 mg/dl Mild Toxicity.............. > 30 mg/dl Severe Toxicity............ > 60 mg/dl UA RFLX [id number] 14:18:00 Test Item Value Reference Range Comments [...] SPECIMEN DESCRIPTION (test Clean Catch code=UASPEC) UA [id number] 14:18:00 Test Item Value Reference Range Comments UA WBC (test code=WBCU) < 10 #/hpf <10 UA RBC (test code=RBCU) 0-2 #/hpf NONE SEEN UA BACTERIA (test code=BACU) RARE #/hpf NONE SEEN UA SQUAMOUS CELLS (test code=SQU) 0 - 20 #/lpf <100 UA MUCUS (test code=MUCU) 1+ #/lpf NONE SEEN BASIC METABOLIC [id number] 14:16:00 Test Item Value Reference Range Comments [...] (test code=CA) 9.4 MG/DL 8.7-10.5 HEPATIC FUNCTION [id number] 14:16:00 Test Item Value Reference Range Comments [...] PHOSPHATASE TOTAL 74 Units/L 50-136 (test code=ALKP) [id number] 14:16:00 Test Item Value Reference Range Comments CK (test code=CKT) 87 Units/L 26-192 [id number] 14:16:00 Test Item Value Reference Range Comments ALCOHOL (test code=ALC) < 3 MG/DL 0-10 0 - 10: Should be interpreted as NEGATIVE. 11 - 50: None to mild euphoria. 51 - 100: Mild influence on vision and dark adaptation. > 80: Legal intoxication; Depression of SUPERVISOR HOUSECLEANER; Increasing degree of poisoning. > 400: Fatalities reported. Results are for medical purposes only and not forlegal or employment evaluative purposes. BASIC METABOLIC [id number] 14:09:00 Test Item Value Reference Range Comments [...] (test code=CA) 9.4 MG/DL 8.7-10.5 HEPATIC FUNCTION [id number] 14:09:00 Test Item Value Reference Range Comments TOTAL PROTEIN (test code=PROT) G/DL 6.4-8.2 ALBUMIN (test code=ALB) G/DL 3.4-5.0 GLOBULIN (test code=GLOB) G/DL 1.5-3.8 ALBUMIN/GLOBULIN RATIO (test code=A/G) 1.1-2.2 BILIRUBIN TOTAL (test code=BILT) MG/DL 0.0-1.0 BILIRUBIN DIRECT (test code=BILD) MG/DL 0.0-0.3 SGOT/AST (test code=AST) Units/L 15-37 SGPT/ALT (test code=ALT) Units/L 30-65 ALKALINE PHOSPHATASE TOTAL (test code=ALKP) Units/L 50-136 [id number] 14:09:00 Test Item Value Reference Range Comments CK (test code=CKT) Units/L 26-192 [id number] 14:09:00 Test Item Value Reference Range Comments ALCOHOL (test code=ALC) MG/DL 0-10 LACTIC ACID [id number] 13:50:00 Test Item Value Reference Range Comments LACTIC ACID POC (test 0.97 MMOL/L 0.90-1.70 Performed by certified code=LACTP) unisaw operator at [facility] [id number] 13:48:00 Test Item Value Reference Range Comments GLUBED (test code=GLUBED) 88 MG/DL 65-99 Performed by certified unisaw operator at [facility] DRUG OF ABUSE SCREEN [id number] 13:43:00 Test Item Value Reference Range Comments [...] confirmed by alternate methods (i.e., GC[facility]MS) [facility]. Results of screen may not be usedin criminal justice, job performance or professionalcredential review, or infant custody issues. Negative [place] Level ng/ml ----- Cocaine 300 Methamphetamine (Ecstacy) 500 Cannabinoids (THC) 50 Amphetamine 1000 Barbiturates 200 Benzodiazepines 200 Opiates 300 Phencyclidine (PCP) 25 UR HCG [id number] 13:39:00 Test Item Value Reference Range Comments UR HCG QUAL (test NEGATIVE NEGATIVE False negatives may occur when code=HCGQLU) levels of hCGare below 20 mIU/ml. When is still suspected, a new specimenshould be obtained after 48 hours and re-tested.If waiting 48 hours is not medically advisable,the test result should be confirmed using aquantitative hCG assay. UA RFLX [id number] 13:38:00 Test Item Value Reference Range Comments [...] SPECIMEN DESCRIPTION (test Clean Catch code=UASPEC) UA [id number] 13:38:00 Test Item Value Reference Range Comments UA WBC (test code=WBCU) #/hpf <10 UA RBC (test code=RBCU) #/hpf NONE SEEN UA SQUAMOUS CELLS (test code=SQU) #/lpf <100 UA RFLX [id number] 13:38:00 Test Item Value Reference Range Comments [...] SPECIMEN DESCRIPTION (test Clean Catch code=UASPEC) UA [id number] 13:38:00 Test Item Value Reference Range Comments UA WBC (test code=WBCU) #/hpf <10 UA RBC (test code=RBCU) #/hpf NONE SEEN UA SQUAMOUS CELLS (test code=SQU) #/lpf <100 CBC W/AUTO [id number] 13:26:00 Test Item Value Reference Range Comments [...] # (test code=BA#) 0.05 x10 3/uL 0.0-0.2 [id number] 19:07:00 Test Item Value Reference Range Comments LEVETIRACETAM (test 28.7 ug/mL 10.0-40.0 This test was developed and its code=LEVTAM) performance characteristicsdetermined by [employer]. It has not been cleared orapproved by the Food and Drug Administration.Performed At: [address] [id number] Dias MD Ph:[phone] BASIC METABOLIC [id number] 04:58:00 Test Item Value Reference Range Comments [...] 0.60-1.00 CALCIUM (test code=CA) 8.9 MG/DL 8.7-10.5 [id number] 04:58:00 Test Item Value Reference Range Comments MAGNESIUM (test code=MAG) 1.9 MG/DL 1.8-2.4 CBC W/AUTO [id number] 04:08:00 Test Item Value Reference Range Comments [...] X10 3/uL 0.0-0.2 - MRI BRAIN W/O [id number] 13:51:00 Patient Name: SAHRA NETTLES TIERRA Unit No: [id number] EXAMS: CPT CODE: [id number] MRI BRAIN W/O CONTRAST 69995 Reason: sz INDICATION: Seizure COMPARISON: CT brain, [...] until the patient can hold still. at 1354 Reported and signed by: Lashell Anderson MD CC: Fanny Knowles DO; Jacob Gutierrez MD Technologist: Andre Self MRI Trscrpt Dt/ (2529)t.GAVIOTAR.[email or web address] Orig Print D/T: S: 09/17/2018 (9459) [facility] N[facility]EM[facility] [address] PHYS: [place] [address] : 1990 AGE: 27 SEX: F LOC: D.D313 1 PHONE #: [phone] EXAM DATE: 09/17/2018 STATUS: ADM IN FAX #: RAD NO: DC Dt: PAGE 1 Signed [id number] 07:25:00 Test Item Value Reference Range Comments PROLACTIN (test code=PROLAC) 24.6 ng/mL 4.8-23.3 Performed At: [facility] [place] [id number] Sb Man MD Ph:[phone] UA RFLX MICROSCOPIC [id number] 19:02:00 Test Item Value Reference Range Comments [...] met URINE SOURCE: Clean CatchUA RFLX MICROSCOPIC [id number] 18:56:00 Test Item Value Reference Range Comments [...] CULTURE NEEDED? (test code=UACULT) URINE SOURCE: Clean [id number] 15:56:00 Test Item Value Reference Range Comments CK (test code=CKT) 34 Units/L 26-192 BASIC METABOLIC [id number] 12:57:00 Test Item Value Reference Range Comments [...] 0.60-1.00 CALCIUM (test code=CA) 8.6 MG/DL 8.7-10.5 [id number] 12:57:00 Test Item Value Reference Range Comments CK (test code=CKT) 32 Units/L 26-192 CBC W/AUTO [id number] 12:33:00 Test Item Value Reference Range Comments [...] 0.0 X10 3/uL 0.0-0.2 TOTAL IRON BINDING [id number] 05:50:00 Test Item Value Reference Range Comments SERUM IRON (test code=IRON) 17 MCG/DL 50-170 TOTAL IRON BINDING CAPACITY (test code=TIBC) 363 MCG/DL 280-400 IRON SATURATION (test code=FESAT) 5 % 15-50 [id number] 05:50:00 Test Item Value Reference Range Comments FERRITIN (test code=LULI) 11 NG/ML 3-105 HEPATIC FUNCTION [id number] 05:32:00 Test Item Value Reference Range Comments [...] 50-136 (test code=ALKP) - CT HEAD/BRAIN W/O [id number] 20:19:00 Patient Name: SAHRA NETTLES Unit No: [id number] EXAMS: CPT CODE: [id number] CT HEAD/BRAIN W/O CONT 36449 Reason: seizure TECHNIQUE: Contiguous 5 mm images [...] Print D/T: S: 07/2018 (2021) CTDI: DLP: [facility] NAME: SAHRA NETTLES November [facility] PHYS: NGA. - Keanu Váz[place] [address] : 1990 AGE: 27 SEX: F LOC: RichNER PHONE#: [phone] EXAM DATE: 07/2018 STATUS: REG ER FAX #: RAD NO: DC Dt: PAGE 1 Signed Report- XR CHEST 1 [id number] 20:18:00 Patient Name: SAHRA NETTLES Unit No: [id number] EXAMS: CPT CODE: [id number] XR CHEST 1 V 55258 Reason: screen for pneumonia FINDINGS: Single view ofthe chest shows normal heart size and pulmonary vasculature. The lungs are clear bilaterally. There is no focal infiltrate, pleural effusion or pneumothorax. IMPRESSION: No acute cardiopulmonary findings at 2018 Reported and signed by : Lashell Jimenze MD CC: Keanu Vázquez MD; Cristiane Heath Technologist: Edel Cade CT Trscrpt Dt/ (2017)t.FABIW Orig PrintD/T: S: 09/14/2018 (2020) [facility] NAME: SAHRA NETTLES November [facility] PHYS: NGA. - Keanu Váz[place] [address] : 1990 AGE: 27 SEX: F LOC: MATT PHONE #: [phone] EXAM DATE: 09/14/2018 STATUS: REG ER FAX #: RAD NO: DC Dt: PAGE 1 Signed ReportHCG SERUM [id number] 20:04:00 Test Item Value Reference Range Comments HCG SERUM QUAL (test NEGATIVE NEGATIVE False negatives may occur when code=HCGQL) levels of hCGare below 10 mIU/ml. When is still suspected, a new specimenshould be obtained after 48 hours and re-tested.If waiting 48 hours is not medically advisable,the test result should be confirmed using aquantitative hCG assay. BASIC METABOLIC [id number] 19:51:00 Test Item Value Reference Range Comments [...] (test code=CA) 9.3 MG/DL 8.7-10.5 CBC W/AUTO [id number] 19:46:00 Test Item Value Reference Range Comments [...] (test code=BA#) 0.05 x10 3/uL 0.0-0.2 BLOOD [id number] 10:00:00 Test Item Value Reference Range Comments CULTURE (BEAKER) (test olht=6466) No growth in 5 days HCG, QUANTITATIVE, [id number] 15:37:00 Test Item Value Reference Range Comments GONADOTROPIN, CHORIONIC (HCG) QUANT (BEAKER) 21144 mIU/mL 0-10 (test jlod=982) Non- Females: <10 mIU/mL Females: Gestation Age Reference Range(mIU/mL) 0.2-1 Week 5-50 1-2 Weeks 50-500 2-3 Weeks 100-5,000 3-4Weeks 500-10,000 4 -5 Weeks 1,000-50,000 5-6 Weeks 10,000-100,000 6-8 Weeks 15,000-200,000 2-3 Months 10,000-100,000COMPREHENSIVE METABOLIC [id number] 15:10:00 Test Item Value Reference Range Comments TOTAL PROTEIN (BEAKER) 7.0 gm/dL 6.0-8.3 (test epbf=084) ALBUMIN (BEAKER) (test 3.9 g/dL 3.5-5.0 opov=5655) ALKALINE PHOSPHATASE 50 U/L 40-150 (BEAKER) (test ggkp=911) BILIRUBIN TOTAL (BEAKER) 0.5 mg/dL 0.2-1.2 (test fulu=640) SODIUM (BEAKER) (test 140 meq/L 136-145 anah=098) POTASSIUM (BEAKER) (test 3.4 meq/L 3.5-5.1 mxzy=315) CHLORIDE (BEAKER) (test 107 meq/L 98-107 zsft=978) CO2 (BEAKER) (test 21 meq/L 22-29 vrez=988) BLOOD UREA NITROGEN 6 mg/dL 7-21 (BEAKER) (test owbm=539) CREATININE (BEAKER) (test 0.54 mg/dL 0.57-1.25 lffm=662) GLUCOSE RANDOM (BEAKER) 76 mg/dL 70-105 (test vnyd=562) CALCIUM (BEAKER) (test 9.2 mg/dL 8.4-10.2 fqhh=394) AST (SGOT) (BEAKER) (test 57 U/L 5-34 xvbu=749) ALT (SGPT) (BEAKER) (test 84 U/L 6-55 wakb=185) EGFR (BEAKER) (test 135 mL/min/1.73 sq ESTIMATED GFR IS NOT xdad=7944) m ACCURATE CREATININE CLEARANCE IN PREDICTING GLOMERULAR FILTRATION RATE. ESTIMATED GFR IS NOT APPLICABLE FOR DIALYSIS PATIENTS. CBC W/PLT COUNT & AUTO [id number] 14:53:00 Test Item Value Reference Range Comments WHITE BLOOD CELL COUNT (BEAKER) (test hocl=335) 9.7 K/ L 3.5-10.5 RED BLOOD CELL COUNT (BEAKER) (test pxgn=267) 4.31 M/ L 3.93-5.22 HEMOGLOBIN (BEAKER) (test yced=019) 10.0 GM/DL 11.2-15.7 HEMATOCRIT (BEAKER) (test fwzx=308) 31.9 % 34.1-44.9 MEAN CORPUSCULAR VOLUME (BEAKER) (test ltxl=255) 74.0 fL 79.4-94.8 MEAN CORPUSCULAR HEMOGLOBIN (BEAKER) (test 23.2 pg 25.6-32.2 jkvf=362) MEAN CORPUSCULAR HEMOGLOBIN CONC (BEAKER) (test 31.3 GM/DL 32.2-35.5 velw=105) RED CELL DISTRIBUTION WIDTH (BEAKER) (test 19.0 % 11.7-14.4 ogzc=679) PLATELET COUNT (BEAKER) (test nqua=713) 259 K/CU MM 150-450 MEAN PLATELET VOLUME (BEAKER) (test omzb=106) 9.9 fL 9.4-12.3 NUCLEATED RED BLOOD CELLS (BEAKER) (test 0 /100 WBC 0-0 rhhb=112) NEUTROPHILS RELATIVE PERCENT (BEAKER) (test 70 % ggot=547) LYMPHOCYTES RELATIVE PERCENT (BEAKER) (test 21 % utyk=598) MONOCYTES RELATIVE PERCENT (BEAKER) (test 8 % davs=589) EOSINOPHILS RELATIVE PERCENT (BEAKER) (test 1 % qvmn=664) BASOPHILS RELATIVE PERCENT (BEAKER) (test 1 % grho=815) NEUTROPHILS ABSOLUTE COUNT (BEAKER) (test 6.75 K/ L 1.56-6.13 uaif=675) LYMPHOCYTES ABSOLUTE COUNT (BEAKER) (test 2.01 K/ L 1.18-3.74 jwzg=729) MONOCYTES ABSOLUTE COUNT (BEAKER) (test 0.75 K/ L 0.24-0.36 kbpa=021) EOSINOPHILS ABSOLUTE COUNT (BEAKER) (test 0.07 K/ L 0.04-0.36 tjbh=805) BASOPHILS ABSOLUTE COUNT (BEAKER) (test 0.08 K/ L 0.01-0.08 xiln=532) IMMATURE GRANULOCYTES-RELATIVE PERCENT (BEAKER) 0 % 0-1 (test pduj=2262) U/S, , FIRST [id number] 07:52:00Reason for exam:-> Reason for exam:->please include [...] 1 day. An embryonic pole is evident. [place]-rump length measures 0.63 cm, correlating with estimated [...] Garrido Verified Date/Time: 05/17/2017 07:52:37 Reading Location: [facility] C013X Ortho Consult Reading Room PREGNANCY SCREEN, [id number] 05:28:00 Test Item Value Reference Range Comments TEST URINE (BEAKER) (test rxxh=039) Positive MR, BRAIN, WITHOUT [id number] 18:54:00Reason for exam:->Stroke evaluationFINAL REPORT MRI brain [...] Verified Date/Time: 05/15/2017 18 :54:11 Reading Location: [facility] Radiology Reading Room EEG AWAKE AND [id number] 12:08:00Reason for exam:->? nonconvulsive statusDATE OF TEST: 2016DATE OF REPORT 05/15/2017 ACC: [id number] EE Start time: 1034 Stop time: 1054 ICD-10: R56.9CPT Code: 32520RDKLEVJ: 26 y/o woman with epilepsy found down [...] recordings.Marika Smith M.D.Neurophysiology FellowSwathi Harper M.D.Neurophysiology Attending [id number] 04:27:00 Test Item Value Reference Range Comments PROCALCITONIN (BEAKER) (test inst=0713) 0.17 ng/mL <0.05 SEPSIS RISK (ng/mL)Low: 0.05-0.50Intermediate: 0.51-2.00High: & gt;=[id number] 03:15:00 Test Item Value Reference Range Comments PHOSPHORUS (BEAKER) (test xmbp=695) 3.1 mg/dL 2.3-4.7 [id number] 03:15:00 Test Item Value Reference Range Comments MAGNESIUM (BEAKER) (test yliv=829) 1.9 mg/dL 1.6-2.6 BASIC METABOLIC [id number] 03:15:00 Test Item Value Reference Range Comments SODIUM (BEAKER) (test 139 meq/L 136-145 kulo=180) POTASSIUM (BEAKER) (test 3.7 meq/L 3.5-5.1 hohx=745) CHLORIDE (BEAKER) (test 110 meq/L 98-107 lfrg=308) CO2 (BEAKER) (test 19 meq/L 22-29 axln=907) BLOOD UREA NITROGEN 8 mg/dL 7-21 (BEAKER) (test flvs=763) CREATININE (BEAKER) (test 0.57 mg/dL 0.57-1.25 mzef=757) GLUCOSE RANDOM (BEAKER) 92 mg/dL 70-105 (test wbbf=452) CALCIUM (BEAKER) (test 9.2 mg/dL 8.4-10.2 tcrz=051) EGFR (BEAKER) (test 127 mL/min/1.73 sq m ESTIMATED GFR IS NOT nljw=2503) ACCURATE CREATININE CLEARANCE IN PREDICTING GLOMERULAR FILTRATION RATE. ESTIMATED GFR IS NOT APPLICABLE FOR DIALYSIS PATIENTS. CREATINE KINASE (CK)2017-05-15 03:15:00 Test Item Value Reference Range Comments CREATINE KINASE TOTAL (BEAKER) (test fyid=664) 200 U/L 29-200 LACTIC ACID, VENOUS, WHOLE [id number] 03:09:00 Test Item Value Reference Range Comments LACTATE BLOOD VENOUS (2) (BEAKER) (test 0.6 mmol/L 0.5-2.2 haje=7508) Effective 10/17/2015: Units/Reference Range ChangeNew: 0.5-2.2 mmol/L Previous: 5 -20 mg/dLPROTHROMBIN TIME/[id number] 03:07:00 Test Item Value Reference Range Comments PROTIME (BEAKER) (test oara=035) 14.5 seconds 11.7-14.7 INR (BEAKER) (test kfhx=351) 1.1 <=5.9 RECOMMENDED COUMADIN/WARFARIN INR THERAPY RANGESSTANDARD DOSE: 2.0 - 3.0 Includes: PROPHYLAXIS forvenous thrombosis, systemic embolization; TREATMENT for venous thrombosis and/or pulmonary embolus.HIGH RISK: Target INR is 2.5-3.5 for patients with mechanical heart valves.CBC W/PLT COUNT & AUTO [id number] 03:00:00 Test Item Value Reference Range Comments WHITE BLOOD CELL COUNT (BEAKER) (test qnqk=474) 21.6 K/ L 3.5-10.5 RED BLOOD CELL COUNT (BEAKER) (test jahf=048) 4.04 M/ L 3.93-5.22 HEMOGLOBIN (BEAKER) (test uspi=119) 9.3 GM/DL 11.2-15.7 HEMATOCRIT (BEAKER) (test dtsf=137) 30.1 % 34.1-44.9 MEAN CORPUSCULAR VOLUME (BEAKER) (test yhjf=273) 74.5 fL 79.4-94.8 MEAN CORPUSCULAR HEMOGLOBIN (BEAKER) (test 23.0 pg 25.6-32.2 qgyb=503) MEAN CORPUSCULAR HEMOGLOBIN CONC (BEAKER) (test 30.9 GM/DL 32.2-35.5 quxt=159) RED CELL DISTRIBUTION WIDTH (BEAKER) (test 19.3 % 11.7-14.4 jjiz=447) PLATELET COUNT (BEAKER) (test bcvs=024) 250 K/CU MM 150-450 MEAN PLATELET VOLUME (BEAKER) (test sokg=336) 10.3 fL 9.4-12.3 NUCLEATED RED BLOOD CELLS (BEAKER) (test 0 /100 WBC 0-0 rlgx=501) NEUTROPHILS RELATIVE PERCENT (BEAKER) (test 83 % epbi=867) LYMPHOCYTES RELATIVE PERCENT (BEAKER) (test 9 % vfqs=529) MONOCYTES RELATIVE PERCENT (BEAKER) (test 8 % hwea=051) EOSINOPHILS RELATIVE PERCENT (BEAKER) (test 0 % wzix=586) BASOPHILS RELATIVE PERCENT (BEAKER) (test 0 % bvjl=478) NEUTROPHILS ABSOLUTE COUNT (BEAKER) (test 17.85 K/ L 1.56-6.13 ylgp=426) LYMPHOCYTES ABSOLUTE COUNT (BEAKER) (test 1.98 K/ L 1.18-3.74 xevx=660) MONOCYTES ABSOLUTE COUNT (BEAKER) (test 1.62 K/ L 0.24-0.36 cdsd=816) EOSINOPHILS ABSOLUTE COUNT (BEAKER) (test 0.01 K/ L 0.04-0.36 dhfb=378) BASOPHILS ABSOLUTE COUNT (BEAKER) (test 0.04 K/ L 0.01-0.08 yigk=098) IMMATURE GRANULOCYTES-RELATIVE PERCENT (BEAKER) 1 % 0-1 (test lsmr=8777) RAD, CHEST, 1 VIEW, NON [id number] 01:06:00Reason for exam:->possible infectionShould this be performed [...] MDReport Verified Date/Time: 2016 01:06:06 Reading Location: [address] Reading Room
[2019-02-02] MEDS ORDERED: FAMOTIDINE 20 MG/2 ML VIAL IV ONE (17:13)
[2019-02-02] MEDS ORDERED: ONDANSETRON 4 MG/2 ML VIAL ONE (17:13)
[2019-02-02] MEDS ORDERED: NA CHLORIDE 0.9% 1,000 ML ONE (17:13)
[2019-02-02 17:21] LABS: Absolute Lymphocytes (CBC) 1.4 K/uL (0.7-4.9); Basophils % 0.5 % (0-1.3); Hematocrit 31.5 % (36.0-45.0); Lymphocytes % 12.7 % (15.3-44.8); MPV 8.6 fL (7.6-11.3); RBC Red Blood Cell Count 4.36 M/uL (3.86-4.86)
[2019-02-02 17:22] LABS: Protime INR 0.92
[2019-02-02 17:32] LABS: ALT/SGPT 75 U/L (12-78); AST/SGOT 42 U/L (15-37); Albumin 3.8 g/dL (3.4-5.0); Alkaline Phosphatase 93 U/L (45-117); BUN Blood Urea Nitrogen 8 mg/dL (7-18); Bicarbonate 24 mmol/L (21-32); Bilirubin Direct < 0.1 mg/dL (0-0.2); Bilirubin Total 0.2 mg/dL (0.2-1.0); Glucose Level 101 mg/dL (74-106); Potassium 3.8 mmol/L (3.5-5.1); Protein, Total 7.5 g/dL (6.4-8.2); Sodium Level 141 mmol/L (136-145)
[2019-02-02] MEDS ORDERED: levETIRAcetam 1,000 MG in NA CHLORIDE 0.9% 100 ML IV ONE (18:15)
[2019-02-02 19:12] LABS: Barbiturates NEGATIVE (NEGATIVE); Benzodiazepines POSITIVE (NEGATIVE); Cocaine NEGATIVE (NEGATIVE); METHAMPHETAM NEGATIVE (NEGATIVE); Methadone NEGATIVE (NEGATIVE); Opiates NEGATIVE (NEGATIVE); Phencyclidine NEGATIVE (NEGATIVE); THC Cannibis NEGATIVE (NEGATIVE)
--- NOTE | 2019-02-02 19:12 | EDPHYS ---
Physician Documentation [facility] Name: Heather Hope Age: 28 yrs Sex: Female : 1990 Arrival Date: 02/02/2019 Time: 16:29 Bed 3 Private MD: ED Physician Moi Avalos HPI: 02/02 16:40 This 28 yrs old Female presents to ER via EMS with complaints of Seizure. cp 16:40 The patient presents with a history of multiple seizures, a total of 2, that last an cp unknown period of time, the episode(s) was witnessed, by EMS personnel. 16:40 Character of seizure(s): Loss of consciousness: the patient experienced loss of cp consciousness, Motor activity: generalized, shaking all over, Incontinence: none. Seizure onset: today. Context: occurred at home. Seizure Hx: Cause: unknown, Seizure medications: Keppra. Associated injury: The patient did not suffer any apparent associated injury. EMS care: versed, IM, 5 mg(s). Current symptoms: decreased level of consciousness, unable to arouse. Historical: - Allergies: 16:44 No Known Allergies; iw - Home Meds: 16:44 Fycompa 4 mg Oral tab 1 tab once daily [Active]; Keppra 750 mg Oral tab 2 tabs 2 times iw per day [Active]; - PMHx: 16:44 Seizures; iw - PSHx: 16:44 None; iw - Immunization history:: Adult Immunizations unknown. - Social history:: Smoking status: unknown. - Ebola Screening: : Patient negative for fever greater than or equal to 101.5 degrees Fahrenheit, and additional compatible Ebola Virus Disease symptoms Patient denies exposure to infectious person Patient denies travel to an Ebola-affected area in the 21 days before illness onset No symptoms or risks identified at this time. ROS: 16:45 Constitutional: Negative for fever. cp 16:45 Abdomen/GI: Positive for vomiting. 16:45 Neuro: Positive for history of seizure. 16:45 Unable to obtain ROS due to patient sedated. Exam: 16:40 ECG was reviewed by the Attending Physician. cp 16:50 Constitutional: The patient appears in no acute distress, alert, awake, non-toxic, well cp developed, well nourished. 16:50 Head/Face: Normocephalic, atraumatic. cp 16:50 Eyes: Periorbital structures: appear normal, Pupils: dilated, bilaterally, Conjunctiva: normal, no exudate, no injection, Lids and lashes: appear normal, bilaterally. 16:50 ENT: External ear(s): are unremarkable, Ear canal(s): are normal, clear, TM's: dullness, bilaterally, Nose: is normal, Mouth: Lips: moist, Oral mucosa: moist, Posterior pharynx: Airway: no evidence of obstruction, patent. 16:50 Chest/axilla: Inspection: normal, Palpation: is normal, no crepitus, no tenderness. 16:50 Cardiovascular: Rate: tachycardic, Rhythm: regular, Heart sounds: murmur, not appreciated, Edema: is not appreciated. 16:50 Respiratory: the patient does not display signs of respiratory distress, Respirations: normal, no use of accessory muscles, no retractions, no splinting, no tachypnea, labored breathing, is not present, Breath sounds: are clear throughout, no decreased breath sounds, no stridor, no wheezing. 16:50 Abdomen/GI: Inspection: abdomen appears normal, Palpation: abdomen is soft and non-tender, in all quadrants. 16:50 Musculoskeletal/extremity: Exam is negative for decreased range of motion, deformity, injury. 16:50 Skin: no rash present. 16:50 Neuro: Mentation: somnolent, responsive to pain. Vital Signs: 16:45 BP 133 / 84; Pulse 129; Resp 14 S; Temp 98.0(TE); Pulse Ox 100% on R/A; Weight 63.5 kg; iw Height 5 ft. 3 in. (160.02 cm); Pain 0/10; 17:06 BP 133 / 84; Pulse 116; Resp 18; Pulse Ox 99% on R/A; ph 18:00 BP 127 / 78; Pulse 110; Resp 18; Pulse Ox 99% on R/A; ph 16:45 Body Mass Index 24.80 (63.50 kg, 160.02 cm) iw Thomas Coma Score: 17:08 Eye Response: to voice(3). Verbal Response: oriented(5). Motor Response: obeys ph commands(6). Total: 14. MDM: 16:35 Patient medically screened. cp 19:10 Data reviewed: vital signs, nurses notes, lab test result(s), EKG, I have discussed the cp patient's presentation/case with the attending Emergency Department Physician; and as a result, I will discharge patient. 19:10 Differential diagnosis: cerebral vascular accident, drug overdose, seizure, TIA. cp Counseling: I had a detailed discussion with the patient and/or guardian regarding: the historical points, exam findings, and any diagnostic results supporting the discharge/admit diagnosis, lab results, the need for outpatient follow up, a neurologist. 02/02 16:33 Order name: Acetaminophen; Complete Time: 17:56 02/02 18:43 Interpretation: Reviewed. 02/02 16:33 Order name: Basic Metabolic Panel; Complete Time: 17:56 02/02 16:33 Order name: CBC with Diff; Complete Time: 17:56 02/02 18:44 Interpretation: Normal except: HGB 10.0; HCT 31.5; MCV 72.2; MCH 22.9; MCHC 31.7; RDW cp 15.8; MANUEL% 77.6; LYM% 12.7; NEUT A 8.3. 02/02 16:33 Order name: ETOH Level; Complete Time: 17:56 02/02 16:33 Order name: Hepatic Function; Complete Time: 17:56 02/02 18:44 Interpretation: Normal except: AST 42; GLOB 3.7; A/G 1.0. 02/02 16:33 Order name: PT-INR; Complete Time: 17:56 02/02 16:33 Order name: Ptt, Activated; Complete Time: 17:56 02/02 16:33 Order name: Salicylate; Complete Time: 18:43 02/02 18:43 Interpretation: Reviewed. 02/02 16:33 Order name: Urine Drug Screen 02/02 19:34 Order name: Urine Dipstick--Ancillary (enter results) [facility] 02/02 19:34 Order name: Urine --Ancillary (enter results) [facility] 02/02 16:33 Order name: Seizure Precautions; Complete Time: 16:58 02/02 16:33 Order name: Urine Test (obtain specimen); Complete Time: 19:12 02/02 16:33 Order name: EKG; Complete Time: 16:34 02/02 16:33 Order name: EKG - Nurse/Tech; Complete Time: 16:58 cp 02/02 16:33 Order name: IV Saline Lock; Complete Time: 16:58 cp 02/02 16:33 Order name: Labs collected and sent; Complete Time: 17:08 cp 02/02 16:33 Order name: Urine Dipstick-Ancillary (obtain specimen); Complete Time: 19:12 cp EC:40 Rate is 132 beats/min. Rhythm is regular. DC interval is normal. QRS interval is cp normal. QT interval is normal. T waves are Inverted in leads V2, V3. Interpreted by me. Reviewed by me. Administered Medications: 17:18 Drug: NS 0.9% 1000 ml Route: IV; Rate: 1 bolus; Site: right forearm; ph 19:27 Follow up: Response: No adverse reaction; IV Status: Completed infusion ph 17:18 Drug: Zofran 4 mg Route: IVP; Site: right forearm; ph 18:30 Follow up: Response: No adverse reaction ph 17:18 Drug: Pepcid 20 mg Route: IVP; Site: right forearm; ph 19:12 Follow up: Response: No adverse reaction ak1 18:11 Not Given (not carried in facility per pharmacist Fco): Fycompa 4 mg PO once sg 18:36 Drug: Keppra 1000 mg Route: IV; Rate: calculated rate; Site: right forearm; ph 19:27 Follow up: Response: No adverse reaction; IV Status: Completed infusion ph Disposition: 20:00 Chart complete. cp Disposition: 02/02/19 19:11 Discharged to Home. Impression: Epilepsy and recurrent seizures. - Condition is Stable. - Discharge Instructions: Seizure, Adult. - Medication Reconciliation Form, Thank You Letter, Antibiotic Education, Prescription Opioid Use form. - Follow up: Srinivas German MD; When: 1 - 2 days; Reason: seizure disorder. - Problem is an ongoing problem. - Symptoms have improved. Signatures: Dispatcher [employer] EDLashawn Quinones RN RN Lakesha Merlos RN RN ak1 Ewa Garcia RN RN Steve Kwon PA PA cp Gay, Steven RN sg Corrections: (The following items were deleted from the chart) 19:46 19:11 02/02/2019 19:11 Discharged to Home. Impression: Epilepsy and recurrent seizures. ak1 Condition is Stable. Forms are Medication Reconciliation Form, Thank You Letter, Antibiotic Education, Prescription Opioid Use. Follow up: Srinivas German; When: 1 - 2 days; Reason: seizure disorder. Problem is an ongoing problem. Symptoms have improved. cp
--- NOTE | 2019-02-02 19:12 | ER ---
Nurse's Notes [facility] Name: Heather Hope Age: 28 yrs Sex: Female : 1990 Arrival Date: 02/02/2019 Time: 16:29 Bed 3 Private MD: Diagnosis: Epilepsy and recurrent seizures Presentation: 02/02 16:33 Presenting complaint: Presenting complaint: EMS states: seizure like activity X 2 iw lasted 5 minutes each, hx of nonepileptic seizures, EMS administered 5 mg versed IM, pt arrives to ER drowsy and oriented X 0, VSS, respirations even and unlabored. 16:41 Transition of care: patient was not received from another setting of care. Onset of iw symptoms was February 02, 2019. Risk Assessment: Do you want to hurt yourself or someone else? Patient reports no desire to harm self or others. Initial Sepsis Screen: Does the patient meet any 2 criteria? No. Patient's initial sepsis screen is negative. Does the patient have a suspected source of infection? No. Patient's initial sepsis screen is negative. Care prior to arrival: None. 16:41 Method Of Arrival: EMS: [facility] iw 16:41 Acuity: DARLYN 2 iw Historical: - Allergies: 16:44 No Known Allergies; iw - Home Meds: 16:44 Fycompa 4 mg Oral tab 1 tab once daily [Active]; Keppra 750 mg Oral tab 2 tabs 2 times iw per day [Active]; - PMHx: 16:44 Seizures; iw - PSHx: 16:44 None; iw - Immunization history:: Adult Immunizations unknown. - Social history:: Smoking status: unknown. - Ebola Screening: : Patient negative for fever greater than or equal to 101.5 degrees Fahrenheit, and additional compatible Ebola Virus Disease symptoms Patient denies exposure to infectious person Patient denies travel to an Ebola-affected area in the 21 days before illness onset No symptoms or risks identified at this time. Screenin:07 Abuse screen: Denies injuries from another. Abuse screen: Denies threats or abuse. ph Nutritional screening: No deficits noted. Tuberculosis screening: No symptoms or risk factors identified. Fall Risk No fall in past 12 months (0 pts). Secondary diagnosis (15 points) seizures, IV access (20 points). Ambulatory Aid- None/Bed Rest/Nurse Assist (0 pts). Gait- Normal/Bed Rest/Wheelchair (0 pts) Mental Status- Oriented to own ability (0 pts). Total Green Fall Scale indicates High Risk Score (45 or more points). Fall prevention measures have been instituted. Side Rails Up X 2 Placed Close to Nursing Station Frequent Obs/Assessments Occuring As available patient and family educated on Fall Prevention Program and Strategies. Assessment: 17:06 General: Appears in no apparent distress. comfortable, slender, Behavior is drowsy, ph inappropriate for age, quiet. Pain: Denies pain. Neuro: Level of Consciousness is obeys commands, lethargic, listless, post ictal, Oriented to person, place. Neuro: Seizure activity reported prior to arrival. Patient is post-ictal at this time. Cardiovascular: Capillary refill < 3 seconds in bilateral fingers Patient's skin is warm and dry. Respiratory: Airway is patent Respiratory effort is even, unlabored. Derm: Skin is healthy with good turgor, Skin is pink, warm \\T\\ dry. Musculoskeletal: Circulation, motion, and sensation intact. Range of motion: intact in all extremities. 17:07 Reassessment: pt appears to be sleeping, awakens periodically , states "why do y'all iw keep saying nothing's wrong with me, do y'all think I'm faking this, why would I do that? Do you think I can get transported to another hospital to see a seizure specialist?", pt advised that our staff did not say nothing was wrong with her but sometimes people have different reactions to stress, pt then goes back to sleep, VSS, respirations even and unlabored. 18:09 Reassessment: Patient appears in no apparent distress at this time. orders for sg medication faxed to pharmacy at this time, awaiting delivery of medication. will continue to monitor\\E\\. 18:15 Reassessment: Patient appears in no apparent distress at this time. Patient and/or ph family updated on plan of care and expected duration. Pain level reassessed. Patient is alert, oriented x 3, equal unlabored respirations, skin warm/dry/pink. Pt awake and alert at this time, states, " I want to be transferred to another hospital because y'all never do anything for me here. I need to know why I'm having seizures and you can never tell me." Explained to pt that she did not meet criteria for transfer d/t her having a seizure hx, informed pt that she needed to follow up w/ neurologist for further testing. 19:33 General: Behavior is uncooperative. Neuro: Oriented to person, place, time, situation, ak1 pt upset and refused to sign discharge papers. pt next of kin on face sheet [facility] was contacted to pick pt up. pt "seized" pt has no neurological deficits. pt remains awake and grabbing at nurses while "seizing" pt informed to contact her neurologist for follow up visit. pt stated she saw her neurologist yesterday. pt stated she is upset she is not being transferred. pt informed she is being discharged but can go POV to any other ER she wishes. . 19:44 Reassessment: pt A\\T\\OX4 and ambulated to vehicle with no assistance. ak1 Vital Signs: 16:45 BP 133 / 84; Pulse 129; Resp 14 S; Temp 98.0(TE); Pulse Ox 100% on R/A; Weight 63.5 kg; iw Height 5 ft. 3 in. (160.02 cm); Pain 0/10; 17:06 BP 133 / 84; Pulse 116; Resp 18; Pulse Ox 99% on R/A; ph 18:00 BP 127 / 78; Pulse 110; Resp 18; Pulse Ox 99% on R/A; ph 16:45 Body Mass Index 24.80 (63.50 kg, 160.02 cm) iw Thomas Coma Score: 17:08 Eye Response: to voice(3). Verbal Response: oriented(5). Motor Response: obeys ph commands(6). Total: 14. ED Course: 16:29 Patient arrived in ED. iw 16:32 Steve Arreaga PA is PHCP. cp 16:32 Moi Avalos MD is Attending Physician. cp 16:44 Triage completed. iw 16:46 Arm band placed on. iw 16:49 EKG done, by flight test data acquisition technician. reviewed by Steve PENG. sm3 17:07 Patient has correct armband on for positive identification. Placed in gown. Call light ph in reach. Side rails up X2. Seizure precautions initiated. electronic device monitor on. Pulse ox on. NIBP on. Warm blanket given. 17:07 Initial lab(s) drawn, by me, sent to lab. Maintain EMS IV. Dressing intact. Good blood iw return noted. Site clean \\T\\ dry. Gauge \\T\\ site: 20 RFA. 17:12 Ewa Garcia RN is Primary Nurse. ph 18:19 Ewa Garcia RN is Primary Nurse. ph 18:36 No provider procedures requiring assistance completed. ph 19:10 Srinivas German MD is Referral Physician. cp 19:36 IV discontinued, intact, bleeding controlled, No redness/swelling at site. Pressure ak1 dressing applied. Administered Medications: 17:18 Drug: NS 0.9% 1000 ml Route: IV; Rate: 1 bolus; Site: right forearm; ph 19:27 Follow up: Response: No adverse reaction; IV Status: Completed infusion ph 17:18 Drug: Zofran 4 mg Route: IVP; Site: right forearm; ph 18:30 Follow up: Response: No adverse reaction ph 17:18 Drug: Pepcid 20 mg Route: IVP; Site: right forearm; ph 19:12 Follow up: Response: No adverse reaction ak1 18:11 Not Given (not carried in facility per pharmacist Fco): Fycompa 4 mg PO once sg 18:36 Drug: Keppra 1000 mg Route: IV; Rate: calculated rate; Site: right forearm; ph 19:27 Follow up: Response: No adverse reaction; IV Status: Completed infusion ph Outcome: 19:11 Discharge ordered by MD. cp 19:36 Discharged to home via wheelchair, with family, pt placed in wheelchair with gait belt ak1 for security due to "seizures" 19:36 Condition: stable 19:36 Discharge instructions given to patient, Instructed on discharge instructions, follow up and referral plans. Demonstrated understanding of instructions, follow-up care. 19:46 Patient left the ED. ak1 Signatures: Bart Maguire RN RN sg Lashawn Jimenez RN RN Lakesha Merlos RN RN ak1 Ewa Garcia RN RN Steve Arreaga PA PA cp Aminah Nelson 3 Corrections: (The following items were deleted from the chart) 16:44 16:33 Presenting complaint: iw iw 17:12 17:07 Reassessment: pt appears to be sleeping, awakens periodically , states "why do iw y'all keep saying nothing's wrong with me, do y'all think I'm faking this, why would I do that? Do you think I can get transported to another hospital to see a seizure specialist?", pt advised that our staff did not say nothing was wrong with her but sometimes have different reactions to stress, pt then goes back to sleep, VSS, respirations even and unlabored iw 18:36 18:36 Keppra 1000 mg IV at calculated rate in left antecubital ph ph
[2019-02-02 19:54] LABS: Urine Blood NEGATIVE (NEG); Urine Glucose NEGATIVE (NEG); Urine Protein NEGATIVE (NEG)
[2019-02-02 20:32] VITALS: TEMP 98
[2019-02-02 20:34] VITALS: O2SAT 99
[2019-02-02 20:35] VITALS: BP 127/78
--- NOTE | 2019-02-02 22:17 | EKG ---
Test Date: 2019-02-02 Test Time: 16:30:39 [employer]: AR[place]IO MEASUREMENT RESULTS: Intervals: Rate: 132 FL: 142 QRSD: 74 QT: 302 QTc: 447 [place]: P: 49 FL: 142 QRS: 19 T: 11 INTERPRETIVE STATEMENTS: Sinus tachycardia Cannot rule out Anterior infarct, age undetermined Abnormal ECG Compared to ECG 12/25/2018 20:42:43 Myocardial infarct finding now present Sinus rhythm no longer present Electronically Signed On 02-02-19 22:16:19 CDT by Gerard Edwards
== END 2019-02-02 19:46 | disposition home or self-care (01) ==
LOC: ER 16:27
DX: G40.909 Epilepsy, unspecified, not intractable, without status epilepticus (principal)
CPT/HCPCS: 93005; 85025; 80048; 36415; 80320; 80329 ×2; 81025; 85610; 80076; 80307 ×8; 85730; 81003; J1953; J7030; J2405; 96361; 96365; 96375; 99284

== ENCOUNTER 2019-07-03 20:46 | Emergency (ER) | payer OTHER ==
--- OUTSIDE RECORDS SUMMARY | 2019-07-03 20:51 | XMS REPORT | Summary of Care ---
:1990 Author Organization [facility] Address [address] [id number] Care Team Providers Name Role Phone Doctor Unassigned, [place] Insurance Hmo Unavailable Bibi Hicks [facility] Primary Care Provider Reason for Referral (Routine) Status Reason Specialty Diagnoses / Referred By Referred To Procedures Contact Contact New Request Diagnoses Recurrent seizures Griffin Rascon Roshunda Procedures Discharge Follow-up: PCP BIBI HICKS; 3-5 Days 301 [facility], [place], [place] [address] Phone: [place] [address] Phone: MRI/CAT Scan (STAT) Status Reason Specialty Diagnoses / Referred By Referred To Procedures Contact Contact New Request Diagnostic Diagnoses Recurrent seizures Griffin Rascon S Radiology Procedures CT HEAD WO CONTRAST [address] [place] [address] MRI/CAT Scan (STAT) Status Reason Specialty Diagnoses / Referred By Referred To Procedures Contact Contact New Request Diagnostic Diagnoses Recurrent seizures Griffin Rascon S Radiology Procedures CT HEAD WO CONTRAST [address] [place] [address] Reason for Visit Reason Comments Seizures Auth/Cert Status Reason Specialty Diagnoses / Referred By Referred To Procedures Contact Contact Emergency Medicine [facility] [address] [place] [address] [place] [address] Encounter Details Date Type Department Care Team Description 02/03/2019 - Hospital Encounter Neurology/Neurologica Kris Rogers MD 301 [facility] [id number] [place] [address] [phone] Seizure 02/04/2019 l Surgery (ERIC 11B) Griffin Rascon [address] [place], [place] [id number] [address] [place], [place] [id number] Allergies No Known Allergiesdocumented as of this encounter (statuses as of 02/04/2019) Medications Medication Sig Dispensed Refills Start Date End Date Status levETIRAcetam 750 mg Take 2 tablets by 60 tablet 2 12/14/2017 Active tablet mouth 2 (two) times daily. ibuprofen 600 mg Take 1 tablet by 60 tablet 2 11/19/2018 Active tabletIndications: mouth every 6 Breakthrough bleeding (six) hours as on depo provera needed for Pain (scale 1-3) or Pain (scale 4-6). perampanel 4 mg Tab Take 4 mg by 0 Active mouth 2 (two) times daily. rufinamide (BANZEL) 400 Take 1 tablet by 30 tablet 4 02/04/2019 Active mg tabletIndications: mouth 2 (two) Recurrent seizures times daily with meals. Hospital, Clinic, or Other Ordered Dose Route Frequency Start Date End Date Status Facility Administered Medication medroxyPROGESTERone 150 mg IM [id number] 08/30/2018 07/31/2019 Active (DEPO-PROVERA) injection 150 mgIndications: control counseling documented as of this encounter (statuses as of 02/04/2019) Active Problems Problem Noted Date Seizure 02/03/2019 Obesity, unspecified classification, unspecified obesity type, unspecified whether serious comorbidity present BMI 27.0-27.9,adult 05/12/2018 Well woman exam 05/12/2018 Encounter for contraceptive management, unspecified type 05/12/2018 Corpus luteum cyst or hematoma 03/10/2018 Papanicolaou smear of cervix with low grade squamous intraepithelial 2017 lesion (LGSIL) Status epilepticus 06/14/2017 Seizures 06/13/2017 documented as of this encounter (statuses as of 02/04/2019) Resolved Problems Problem Noted Date Resolved Date (spontaneous vaginal delivery) 12/13/2017 01/04/2018 Liveborn infant by vaginal delivery 12/13/2017 01/04/2018 37 weeks gestation of 12/12/2017 01/04/2018 Oligohydramnios in third trimester 12/12/2017 01/04/2018 BMI 23.0-23.9, adult 12/12/2017 01/04/2018 Oligohydramnios in rivera in third trimester 12/12/20172017 36 weeks gestation of 12/10/2017 01/04/2018 Supervision of high risk in third trimester 10/22/2017 01/04/2018 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 10/22/2017 01/04/2018 H/O maternal Chlamydia infection, currently , third 10/22/20172017 trimester LGSIL Pap smear of vagina 06/24/2017 10/22/2017 Overview: If patient does not receive colpo she will need colpo at 6 weeks Rh negative state in antepartum period 06/23/2017 01/04/2018 Overview: Will need rhogam at 28 weeks prn Chlamydia infection affecting 06/23/2017 01/04/2018 Overview: ERICK in 3/4 weeks and at 36 weeks Supervision of high-risk 06/22/2017 01/04/2018 Multiparity 06/22/2017 01/04/2018 History of miscarriage 06/22/2017 01/04/2018 Epilepsy affecting 06/22/2017 01/04/2018 10 weeks gestation of 06/13/2017 06/22/2017 Epilepsy affecting in first trimester 06/13/2017 06/22/2017 documented as of this encounter (statuses as of 02/04/2019) Immunizations Name Administration Dates Next Due Influenza Virus Vaccine Quad IM 3+ YRS 06/22/2017 Rho (d) Immune Globulin 12/13/2017, 12/21/2009 Tdap 10/22/2017 documented as of this encounter Social History Tobacco Use Types Packs/Day Years Used Date Light Tobacco Smoker Smokeless Tobacco: Never Used Tobacco Cessation: Ready to Quit: Yes; Counseling Given: Yes Alcohol Use Drinks/Week oz/Week Comments No Education Answer Date Recorded What is the highest level of school you have Some college, no degree 2018 completed or the highest degree you have received? Sex Assigned at Date Recorded Not on file Job Start Date Occupation Industry Not on file Not on file Not on file Travel History Travel Start Travel End No recent travel history available. documented as of this encounter Last Filed Vital Signs Vital Sign Reading Time Taken Comments Blood Pressure 112/65 02/04/2019 4:00 PM CDT Pulse 90 02/04/2019 4:00 PM CDT Temperature 36.3 C (97.4 F) 02/04/2019 4:00 PM CDT Respiratory Rate 18 02/04/2019 4:00 PM CDT Oxygen Saturation 96% 02/04/2019 4:00 PM CDT Inhaled Oxygen Concentration - - Weight 70.4 kg (155 lb 4 oz) 02/03/2019 3:50 PM CDT Height 160 cm (5' 3") 02/03/2019 9:53 PM CDT Body Mass Index 27.5 02/03/2019 3:50 PM CDT documented in this encounter Discharge Summaries Delonte Rivers MD - 02/04/2019 3:02 PM CDT GENERAL NEUROLOGY DISCHARGE SUMMARY Date of Service: 02/04/2019 15:34 ADMIT DATE: 02/03/2019 DISCHARGE DATE: 02/04/2019 15:34 ATTENDING MD: Tarah NGO MD: Kalina PCP: Bibi Hicks CHIEF COMPLAINT Seizures FINAL DIAGNOSIS Breakthrough seizures SECONDARY DIAGNOSIS: (any diagnosis that, on this admission, required clinical evaluation, therapeutic treatment, diagnostic procedures, extended hospital stay , or additional nursing care/monitoring) None HOSPITAL COURSE Heather Hope is a 28 year old female lady known history of seizure disorder presented to the hospital with a chief complaint off recurrent breakthrough seizures. The patient reports that shewas first diagnosed with epilepsy in her abdominal symptoms. She has been on several different kind of antiepileptic medications since. Most recently she is on Keppra 1500 mg twice a day and Perampanel8 mg daily at bedtime. She has a poorly controlled seizure frequency. At present she reports one seizure every 2 months. Over the past 3 days she has had 5 seizure episodes. Hence, she went to the outside hospital ER for further evaluation from there she was transferred here for neurologic workup. Thepatient reports excessive stress recently, which could have triggered her seizure episodes. The seizure semiology is vague. She is not able to describe her seizure valve. She claims complete loss of consciousness with each of her seizure. However, she doesn't go to the hospital every time she has a seizure. She usually tries to sleep it off and she is back to her normal baseline. The patient currently lives with her boyfriend and her daughter. She reports increase in the frequency of her seizures when she was with her daughter. The seizure frequency has since reduced. No trauma, andinfections, or any other precipitating factors at the onset of her seizure spells. She describes herseizures as always being generalized tonic-clonic in nature. She has postictal confusion which lastsfor several hours. Denies alcohol , smoking, illicit drug use, and any psychiatry illnesses. Not on any other medications other than Keppra and Perampanel. She was loaded with Dilantin and continued on Keppra. Both AEDs levels were therapeutic. CTH and labresults were unremarkable. She did not have any more seizures during the night and the next morning and did not complain of any other symptoms. She was explained that she will need to follow with her Neurologist to adjust her seizure medications. Discharged on Keppra and Banzel and advised to continuePerampanel. She was also advised to use the Copper IUD for contraception as Perampanel can interact with Depo-Provera. PLAN / ITEMS FOR FOLLOW UP PROVIDER: 1. Follow up with Neurology - adjust seizure medications PHYSICAL EXAM ON DISCHARGE: General: Alert and oriented x 4 (time, person, place and situation); no apparent distress. Mental Status: Consciousness, attention, concentration: normal, Stays focused and on task while being questioned. Speech/ Language: intact to comprehension, fluency, repetition and naming. Fund of knowledge: is congruent with level of education. Remote and recent memory: normal, can recall recent and distant memories Cranial Nerves: I. Not tested. II. PERRL. FOV full to confrontation. Discs visualized, no papilledema. III. IV., . Extraocular movements intact without nystagmus. V. Normal sensation in V1-3 distributions. VII. No facial droop noted. VIII. Hearing intact. IX., X. Palatal elevation and gag response present symmetrically. XI. Normal Strength of sternocleidomastoid and trapezius muscles bilaterally. XII. Tongue in midline. Motor: Tone: normal Bulk: normal STRENGTH Right Left Deltoid 5 5 Biceps 5 5 Triceps 5 5 Wrist extensors 5 5 Interossei 5 5 Hip flexors 5 5 Knee flexors (hamstring) 5 5 Knee extensors(quadriceps) 5 5 Ankle dorsiflexors 5 5 Ankle plantarflexors 5 5 DTR's: Right Left Biceps 2+ 2+ Triceps 2+ 2+ Brachioradialis 2+ 2+ Patella 2+ 2+ Achilles 2+ 2+ Pathologic reflexes and signs: Parikh: absent Babinski: absent Jaw Jerk: absent Cerebellar: Nystagmus: neg, FTN: nl, HTS:nl, Tremors: neg, Dysdiadochokinesia: neg Sensory: LT: intact, temperature: intact, PP: intact, proprioception: intact, Vibration: intact Gait: normal HEENT: pupils equal, round, reactive to light; extraocular movements intact; oropharynx clear; moistmucous membranes Lungs: clear to auscultation bilaterally Cardio: S1, S2 normal Extremities:no cyanosis,clubbing or edema Neck:supple,no carotid bruit,no JVD Abdomen: soft; non-tender; non-distended; normoactive bowel sounds heard PROCEDURES: None PERTINENT LABORATORY/IMAGING FINDINGS: Hospital Encounter on 02/03/19 CT HEAD WO CONTRAST Narrative * * * * * * * * ORIGINAL REPORT * * * * * * * * EXAM: CT HEAD WO CONTRAST HISTORY: Breakthrough seizures TECHNIQUE: CT of the head was performed without intravenous contrast. Sagittal and coronal reformats were generated. COMPARISON: None. FINDINGS: The ventricles and sulci are normal in caliber and configuration. No hydrocephalus, midline shift or pathological extra-axial fluid collection is present. The basal cisterns are unremarkable. There is no acute intracranial hemorrhage or significant mass effect. No parenchymal attenuation abnormality. The edmondson-white matter differentiation is preserved. The mastoid air cells and paranasal air sinuses are clear. The calvarium and central skull base are unremarkable. Impression No acute intracranial abnormality. DISCHARGE MEDICATIONS: Current Discharge Medication List START taking these medications Details rufinamide (BANZEL) 400 mg Take 400 mg by mouth 2 (two) times daily with meals. Qty: 30 tablet, Refills: 4 Start date: 02/04/2019 Associated Diagnoses: Recurrent seizures CONTINUE these medications which have NOT CHANGED Details perampanel (FYCOMPA) 4 mg Take 4 mg by mouth 2 (two) times daily. ibuprofen (IBU) 600 mg Take 600 mg by mouth every 6 (six) hours as needed for Pain (scale 1-3) or Pain (scale 4-6). Qty: 60 tablet, Refills: 2 Associated Diagnoses: Breakthrough bleeding on depo provera levETIRAcetam (KEPPRA) 1,500 mg Take 1,500 mg by mouth 2 (two) times daily. Qty: 60 tablet, Refills: 2 DISCHARGE DISPOSITION: Activity: as tolerated Discharged :Discharged: Home Condition at discharge: Fair PT/OT Follow-Up: no FOLLOW-UP APPOINTMENTS: Follow up with PCP in 5 days and with [facility] Neurology Clinics No future appointments. Discharge Orders Discharge Follow-up: PCP BIBI HICKS; 3-5 Days To PCP: BIBI HICKS [[id number]] Patient's Preferred Location: Unknown Discharge Disposition: Home, (AHR) When (Patients with risk for unplanned readmission score over 16 or those noted as Hospital Dependent should follow up within 7 days with PCP or primary DX specialist): 3-5 Days Risk of Unplanned Readmission:( Score greater than 16 indicates high risk) 5 Cardiac (2 gm Sodium, Low Fat, Low Cholesterol) Diet; Texture: Regular. Texture Regular. Diabetic: No Discharge Condition - Discharge Condition: FAIR Discharge Activity Discharge Activity: As Tolerated VTE Propylaxis- Was ordered during hospitalization Discharge Instructions Order Comments: Follow up with your Neurologist and discuss the need to adjust your AEDs to prevent further seizures. Delonte Gilman M.D Neurology (PGY-2) Doctor's Number: [id number] Pager: [phone] documented in this encounter Discharge Instructions AttachmentsThe following attachments cannot be sent through Care Everywhere.Seizure, Safety During A: Epilepsy (Taiwanese)How Seizures Affect the Body, Epilepsy (Taiwanese)Epilepsy, Treating, Medicines (Taiwanese)Rufinamide tablets (Taiwanese)documented in this encounter Progress Notes Antonina Rios RN - 02/04/2019 4:59 PM CDTCARE MANAGEMENT NOTE CC met with patient and she did not want to answer SFA questions, however she stated she doesn't know if she will have a ride home. CC contacted patient boyfriend Gee Goodwin P: [phone]. He stated that he was getting dressed to come and get her now. CC told patient that her boyfriend was on the way to pick her up. CC also left voucher #[id number] and put the patient [address] [place] [address] for [employer] P: [phone] just in case he doesn't arrive. CC instructed RN toplace under my door if it isn't used. CC to continue to follow and assist in discharge planning. Antonina DUNCAN", RN-BSN Bar[employer] [facility] [phone] [email or web address] documented in this encounter Plan of Treatment Name Type Priority Associated Diagnoses Date/Time Blood Culture - Peripheral LAB [facility] 02/03/2019 11:22 PM CDT Vein Blood Culture - Peripheral LAB [facility] 02/03/2019 11:22 PM CDT Vein # 2 Name Type Priority Associated Diagnoses Order Schedule GALV/CLC ONLY - URINE DRUG LAB Routine ONCE for 1 Occurrences (IMMUNOASSAY) - starting 02/03/2019 COMPREHENSIVE DRUG SCREEN until 02/03/2019 TEST, URINE LAB Routine ONCE for 1 Occurrences starting 02/03/2019 until 02/03/2019 URINALYSIS LAB Routine ONCE for 1 Occurrences starting 02/03/2019 until 02/03/2019 URINE CULTURE LAB Routine ONCE for 1 Occurrences starting 02/03/2019 until 02/03/2019 CBC with Differential LAB Routine EVERY MORNING AT 0400 for 3 Occurrences starting 02/04/2019 until 02/06/2019, 1 completed Basic Metabolic Panel (NA, LAB Routine EVERY MORNING AT 0400 K, CL, CO2, GLUCOSE, BUN, for 3 Occurrences CREATININE, CA) starting 02/04/2019 until 02/06/2019, 1 completed Magnesium Serum LAB Routine EVERY MORNING AT 0400 for 3 Days starting 02/04/2019 until 02/06/2019, 1 completed Health Maintenance Due Date Last Done Comments PNEUMOCOCCAL 0-64 YEARS COMBINED SERIES (1 11/08/1995 of 1 - PPSV23) INFLUENZA VACCINE (#1) 2019 06/22/2017 PAP SMEAR 07/13/2021 07/13/2018, 06/22/2017 DTaP,Tdap,and Td Vaccines (2 - Td) 10/23/2027 10/22/2017 documented as of this encounter Procedures Procedure Name Priority Date/Time Associated Comments Diagnosis CBC WITH DIFFERENTIAL Routine 02/04/2019 12:22 Results for this AM CDT procedure are in the results section. CBC WITH DIFF Routine 02/04/2019 12:22 Results for this AM CDT procedure are in the results section. BASIC METABOLIC PANEL Routine 02/04/2019 12:22 Results for this (NA, K, CL, CO2, AM CDT procedure are in GLUCOSE, BUN, the results CREATININE, CA) section. MAGNESIUM Routine 02/04/2019 12:22 Results for this AM CDT procedure are in the results section. EXTRA TUBE RED Routine 02/03/2019 11:21 PM CDT KEPPRA (LEVETIRACETAM) Routine 02/03/2019 11:21 Results for this PM CDT procedure are in the results section. PHENYTOIN FREE Routine 02/03/2019 11:21 Results for this PM CDT procedure are in the results section. ETHANOL Routine 02/03/2019 11:21 Results for this PM CDT procedure are in the results section. PHENYTOIN Routine 02/03/2019 11:21 Results for this PM CDT procedure are in the results section. TEST, SERUM Routine 02/03/2019 11:21 Results for this PM CDT procedure are in the results section. CREATINE KINASE Routine 02/03/2019 11:21 Results for this PM CDT procedure are in the results section. CT HEAD WO CONTRAST STAT 02/03/2019 10:39 Recurrent seizures Results for this PM CDT procedure are in the results section. CBC WITH DIFFERENTIAL STAT 02/03/2019 5:46 Recurrent seizures Results for this PM CDT procedure are in the results section. CBC WITH DIFF STAT 02/03/2019 5:46 Recurrent seizures Results for this PM CDT procedure are in the results section. COMP. METABOLIC PANEL STAT 02/03/2019 5:46 Recurrent seizures Results for this ([id number]) PM CDT procedure are in the results section. HEPATIC FUNCTION PANEL Add-on 02/03/2019 5:46 Results for this ([id number]) (ALB,T.PRO,BILI PM CDT procedure are in T,BU/BC,ALT,AST,ALK the results PHOS) section. MAGNESIUM STAT 02/03/2019 5:46 Recurrent seizures Results for this PM CDT procedure are in the results section. PHOSPHORUS Add-on 02/03/2019 5:46 Results for this PM CDT procedure are in the results section. POCT TEST SUSAN 02/03/2019 5:33 Recurrent seizures Results for this PM CDT procedure are in the results section. ADC / LCC - DRUG SCREEN STAT 02/03/2019 5:32 Recurrent seizures Results for this TRIAGE PM CDT procedure are in the results section. URINALYSIS STAT 02/03/2019 5:32 Recurrent seizures Results for this PM CDT procedure are in the results section. EMERGENCY SERVICES Routine 02/03/2019 12:01 AGREEMENTS AND AM CDT AUTHORIZATIONS EMERGENCY DEPARTMENT Routine 02/03/2019 12:01 DOCUMENTS AM CDT documented in this encounter Results CBC WITH DIFFERENTIAL (02/04/2019 12:22 AM CDT) WBC 10.47 4.30 - 11.10 [facility] 10*3/L SERVICES RBC 4.35 3.93 - 5.25 [facility] 10*6/L SERVICES HGB 9.7 (L) 11.6 - 15.0 [facility] g/dL SERVICES HCT 32.1 (L) 35.7 - 45.2 % [facility] SERVICES MCV 73.8 (L) 80.6 - 95.5 fL [facility] SERVICES MCH 22.3 (L) 25.9 - 32.8 pg [facility] SERVICES MCHC 30.2 (L) 31.6 - 35.1 [facility] g/dL SERVICES RDW-SD 40.5 39.0 - 49.9 fL [facility] SERVICES RDW-CV 15.1 12.0 - 15.5 % [facility] SERVICES PLT 305 166 - 358 [facility] 10*3/L SERVICES MPV 10.3 9.5 - 12.9 fL [facility] SERVICES NRBC/100 WBC 0.0 0.0 - 10.0 /100 [facility] WBCs SERVICES NRBC x10^3 <0.01 10*3/L [facility] SERVICES GRAN MAT (NEUT) % 58.2 % [facility] SERVICES IMM GRAN % 0.40 % [facility] LYMPH % 31.2 % [facility] MONO % 8.2 % [facility] EOS % 1.5 % [facility] BASO % 0.5 % [facility] SERVICES GRAN MAT x10^3(ANC) 6.09 1.88 - 7.09 [facility] 10*3/uL SERVICES IMM GRAN x10^3 0.04 0.00 - 0.06 [facility] 10*3/uL SERVICES LYMPH x10^3 3.27 1.32 - 3.29 [facility] 10*3/uL SERVICES MONO x10^3 0.86 0.33 - 0.92 [facility] 10*3/uL SERVICES EOS x10^3 0.16 0.03 - 0.39 [facility] 10*3/uL SERVICES BASO x10^3 0.05 0.01 - 0.07 [facility] 10*3/uL SERVICES Specimen Blood - ARM, RIGHT Performing Organization Address City/[facility]/Zipcode Phone Number [facility] SERVICES CLIA: [id number], [address] [place] [address] [facility] Magnesium Serum (02/04/2019 12:22 AM CDT) MAGNESIUM 2.1 1.7 - 2.4 mg/dL [facility] SERVICES Specimen Blood - ARM, RIGHT Performing Organization Address [facility] Phone Number [facility] SERVICES CLIA: [id number], [address] [place] [address] [facility] Basic Metabolic Panel (NA, K, CL, CO2, GLUCOSE, BUN, CREATININE, CA) (2018 12:22 AM CDT) NA 141 135 - 145 [facility] mmol/L SERVICES K 3.2 (L) 3.5 - 5.0 [facility] mmol/L SERVICES CL 106 98 - 108 mmol/L [facility] SERVICES CO2 TOTAL 24 23 - 31 mmol/L [facility] SERVICES AGAP 11 2 - 16 [facility] SERVICES BUN 9 7 - 23 mg/dL [facility] SERVICES GLUCOSE 91 70 - 110 mg/dL [facility] SERVICES CREATININE 0.50 0.50 - 1.04 [facility] mg/dL SERVICES CALCIUM 9.3 8.6 - 10.6 [facility] mg/dL SERVICES eGFR Calculation 145.9 mL/min/1.73m2 [facility] (Non- SERVICES English) eGFR Calculation 176.8 mL/min/1.73m2 [facility] () SERVICES Specimen Blood - ARM, RIGHT Narrative Performed At Association of Glomerular Filtration Rate (GFR) and Staging [facility] SERVICES of Kidney Disease* + + + + | GFR (mL/min/1.73 m2)| With Kidney Damage|Without Kidney Damage + + + + |>90|Stage one| Normal + + + + |60-89|Stage two| Decreased GFR + + + + |30-59|Stage three| Stage three + + + + |15-29|Stage four | Stage four + + + + |<15 (or dialysis)|Stage five | Stage five + + + + *Each stage assumes the associated GFR level has been in effect for at least three months.Stages 1 to 5, with or without kidney disease, indicate chronic kidney disease. Notes: Determination of stages one and two (with eGFR >59mL/min/1.73 m2) requires estimation of kidney damage for at least three months as defined by structural or functional abnormalities of the kidney, manifested by either: Pathological abnormalities or Markers of kidney damage (including abnormalities in the composition of the blood or urine or abnormalities in imaging tests). Performing Organization Address [facility] Phone Number [facility] SERVICES CLIA: [id number], [address] [place] [address] [facility] EXTRA TUBE RED (02/03/2019 11:21 PM CDT) Specimen Blood Performing Organization Address [facility] Phone Number [facility] CLIA: [id number], [address] [place] [address] [phone] [facility] ETHANOL (02/03/2019 11:21 PM CDT) ALCOHOL <10 mg/dL [facility] SERVICES Specimen Blood - ARM, LEFT Narrative Performed At Toxic Greater than or equal to 80 mg/dL. [facility] NOTE: Whole blood values are approximately 10% to 15% lower than serum and plasma. Performing Organization Address [facility] Phone Number [facility] CLIA: [id number], [address] [place] [address] [phone] [address] CREATINE KINASE (02/03/2019 11:21 PM CDT) CK 71 33 - 194 U/L [facility] Specimen Blood - ARM, LEFT Performing Organization Address City/State/Zipcode Phone Number [facility] CLIA: [id number], [address] [place] [phone] [facility] TEST, SERUM (02/03/2019 11:21 PM CDT) PREG SERUM Negative [facility] Specimen Blood - ARM, LEFT Narrative Performed At Less than 10 IU/L.If low titer or ectopic is [facility] suspected, resubmit specimen in 48-72 hours. Performing Organization Address City/State/Zipcode Phone Number [facility] CLIA: [id number], [address] [place] [address] [phone] [facility] KEPPRA (LEVETIRACETAM) (02/03/2019 11:21 PM CDT) KEPPRA 19 12 - 46 ug/mL [facility] Specimen Blood - ARM, LEFT Narrative Performed At Therapeutic range: 12-46 g/mLToxic: Not well [facility] established. Test developed and characteristics determined by [facility] Laboratory Services. Performing Organization Address City/State/[facility] Cent[facility] Phone Number [facility] CLIA: [id number], [address] [place] [address] [facility] PHENYTOIN (02/03/2019 11:21 PM CDT) PHENYTOIN 23.5 (H) 10.0 - 20.0 ug/mL [facility] Specimen Blood - ARM, LEFT Narrative Performed At Toxic Range: [facility] 0-3 Months Greater than 14 ug/mL 3 Months - 150 Years Greater than 20 ug/mL Performing Organization Address City/State/Zipcode Phone Number [facility] CLIA: [id number], [address] [place] [address] [phone] [facility] PHENYTOIN FREE (02/03/2019 11:21 PM CDT) PHENY FREE 1.7 1.0 - 2.0 ug/mL [facility] Specimen Blood - ARM, LEFT Narrative Performed At Toxic Range: Greater than 2.5 ug/mL [facility] Test developed and characteristics determined by [facility]. Performing Organization Address City/State/Zipcode Phone Number [facility] CLIA: [id number], [address] [place] [address] [phone] [facility] CT HEAD WO CONTRAST (02/03/2019 10:39 PM CDT) Specimen Impressions Performed At PACS/VR/DOSE No acute intracranial abnormality. Narrative Performed At * * * * * * * * ORIGINAL REPORT * * * * * * * * PACS/VR/DOSE EXAM: CT HEAD WO CONTRAST HISTORY: Breakthrough seizures TECHNIQUE: CT of the head was performed without intravenous contrast. Sagittal and coronal reformats were generated. COMPARISON: None. FINDINGS: The ventricles and sulci are normal in caliber and configuration. No hydrocephalus, midline shift or pathological extra-axial fluid collection is present. The basal cisterns are unremarkable. There is no acute intracranial hemorrhage or significant mass effect. No parenchymal attenuation abnormality. The edmondson-white matter differentiation is preserved. The mastoid air cells and paranasal air sinuses are clear. The calvarium and central skull base are unremarkable. Procedure Note [facility], Radiant Results Inft User - 02/03/2019 11:06 PM CDT * * * * * * * * ORIGINAL REPORT * * * * * * * * EXAM: CT HEAD WO CONTRAST HISTORY: Breakthrough seizures TECHNIQUE: CT of the head was performed without intravenous contrast. Sagittal and coronal reformats were generated. COMPARISON: None. FINDINGS: The ventricles and sulci are normal in caliber and configuration. No hydrocephalus, midline shift or pathological extra-axial fluid collection is present. The basal cisterns are unremarkable. There is no acute intracranial hemorrhage or significant mass effect. No parenchymal attenuation abnormality. The edmondson-white matter differentiation is preserved. The mastoid air cells and paranasal air sinuses are clear. The calvarium and central skull base are unremarkable. IMPRESSION No acute intracranial abnormality. Performing Organization Address City/State/Zipcode Phone Number PACS/VR/DOSE HEPATIC FUNCTION PANEL ([id number]) (ALB,T.PRO,BILI T,BU/BC,ALT,AST,ALK PHOS) (2018 5:46 PM CDT) TOTAL BILI 0.3 0.1 - 1.1 mg/dL [facility] BILI UNCON 0.2 0.1 - 1.1 mg/dL [facility] BILI CONJ 0.0 0.0 - 0.3 mg/dL [facility] T PROTEIN 8.2 6.3 - 8.2 g/dL [facility] ALBUMIN 4.7 3.5 - 5.0 g/dL [facility] ALK PHOS 87 34 - 122 U/L [facility] ALT(SGPT) 80 (H) 9 - 51 U/L [facility] AST(SGOT) 53 (H) 13 - 40 U/L [facility] Specimen Blood - VENOUS Performing Organization Address [facility] Phone Number [facility] CLIA: [id number], [address] [place] [address] Phosphorus Serum (02/03/2019 5:46 PM CDT) [facility] PHOSPHORUS 4.3 2.5 - 5.0 mg/dL [facility] Specimen Blood - VENOUS Performing Organization Address City/[facility] Phone Number [facility] CLIA: [id number], [address] [place] [address] CBC WITH DIFFERENTIAL (02/03/2019 5:46 PM CDT) [facility] WBC 9.60 4.30 - 11.10 [facility] 10*3/L [facility] RBC 4.79 3.93 - 5.25 [facility] 10*6/L [facility] HGB 10.8 (L) 11.6 - 15.0 [facility] g/dL [facility] HCT 35.8 35.7 - 45.2 % [facility] MCV 74.7 (L) 80.6 - 95.5 fL [facility] MCH 22.5 (L) 25.9 - 32.8 pg [facility] MCHC 30.2 (L) 31.6 - 35.1 [facility] g/dL [facility] RDW-SD 40.9 39.0 - 49.9 fL [facility] RDW-CV 15.2 12.0 - 15.5 % [facility] PLT 346 166 - 358 [facility] 10*3/L HOSPITAL LABORATORY MPV 10.3 9.5 - 12.9 fL [facility] NRBC/100 WBC 0.0 0.0 - 10.0 /100 [facility] WBCs [facility] NRBC x10^3 <0.01 10*3/L [facility] GRAN MAT (NEUT) % 63.0 % [facility] IMM GRAN % 0.30 % [facility] LYMPH % 27.0 % [facility] MONO % 7.3 % [facility] EOS % 1.7 % [facility] BASO % 0.7 % [facility] GRAN MAT x10^3(ANC) 6.05 1.88 - 7.09 [facility] 10*3/uL [facility] IMM GRAN x10^3 0.03 0.00 - 0.06 [facility] 10*3/uL HOSPITAL LABORATORY LYMPH x10^3 2.59 1.32 - 3.29 [facility] 10*3/uL HOSPITAL LAB[facility]ORY MONO x10^3 0.70 0.33 - 0.92 [facility] 10*3/uL HOSPITAL LABORATORY EOS x10^3 0.16 0.03 - 0.39 [facility] 10*3/uL HOSPITAL LABORATORY BASO x10^3 0.07 0.01 - 0.07 [facility] 10*3/uL [facility] Specimen Blood - VENOUS Performing Organization Address City/State/Zipcode Phone Number [facility] CLIA: [id number], [address] [place] [address] COMP. METABOLIC PANEL ([id number]) (02/03/2019 5:46 PM CDT) NA 142 135 - 145 [facility] mmol/L [facility] K 3.8 3.5 - 5.0 [facility] mmol/L [facility] CL 106 98 - 108 mmol/L [facility] CO2 TOTAL 24 23 - 31 mmol/L [facility] AGAP 12 2 - 16 [facility] BUN 8 7 - 23 mg/dL [facility] GLUCOSE 91 70 - 110 mg/dL [facility] CREATININE 0.45 (L) 0.50 - 1.04 [facility] mg/dL [facility] TOTAL BILI 0.4 0.1 - 1.1 mg/dL [facility] CALCIUM 9.0 8.6 - 10.6 [facility] mg/dL [facility] T PROTEIN 8.2 6.3 - 8.2 g/dL [facility] ALBUMIN 4.7 3.5 - 5.0 g/dL [facility] ALK PHOS 85 34 - 122 U/L [facility] ALT(SGPT) 70 (H) 9 - 51 U/L [facility] AST(SGOT) 49 (H) 13 - 40 U/L [facility] eGFR Calculation 164.7 mL/min/1.73m2 [facility] English) eGFR Calculation 199.7 mL/min/1.73m2 [facility] () [facility] Specimen Blood - VENOUS Narrative Performed At Association of Glomerular Filtration Rate (GFR) [facility] LABOR[facility] and Staging of Kidney Disease* + + +- + | GFR (mL/min/1.73 m2)| With Kidney Damage|Without Kidney Damage + + +- + |>90| Stage one| Normal + + +- + |60-89|S tage two| Decreased GFR + + +- + |30-59|S tage three| Stage three + + +- + |15-29|S tage four | Stage four + + +- + |<15 (or dialysis)|Stage five | Stage five + + +- + *Each stage assumes the associated GFR level has been in effect for at least three months.Stages 1 to 5, with or without kidney disease, indicate chronic kidney disease. Notes: Determination of stages one and two (with eGFR >59mL/min/1.73 m2) requires estimation of kidney damage for at least three months as defined by structural or functional abnormalities of the kidney, manifested by either: Pathological abnormalities or Markers of kidney damage (including abnormalities in the composition of the blood or urine or abnormalities in imaging tests). Performing Organization Address City/State/Zipcode Phone Number [facility] CLIA: [id number], [address] [place] [address] MAGNESIUM (02/03/2019 5:46 PM CDT) [facility] MAGNESIUM 2.3 1.7 - 2.4 mg/dL [facility] Specimen Blood - VENOUS Performing Organization Address City/[facility]/Zipcode Phone Number [facility] CLIA: [id number], [address] [place] [address] POCT TEST (02/03/2019 5:33 PM CDT) POCT PREG negative On board controls acceptable present with C Line POCT PREG LOT # [id number] POCT PREG TEST DATE 06/14/2002 Specimen Urine - URINE, CLEAN CATCH ADC / LCC - DRUG SCREEN TRIAGE (02/03/2019 5:32 PM CDT) BENZO U Negative Negative [facility] SHAHANA U Negative Negative [facility] AMPHET Negative Negative [facility] THC Negative Negative [facility] METHADONE Negative Negative [facility] Meth U Negative Negative [facility] OPIATES Negative Negative [facility] Cocaine Metabolite Negative Negative [facility] PROPOXY Negative Negative [facility] Tric U Negative Negative [facility] PCP Negative Negative [facility] OXYCOD Negative Negative [facility] Specimen Urine - URINE, CLEAN CATCH Narrative Performed At Urine Drug Cutoff Ranges [facility] Benzodiazepines: 150 ng/mL Barbiturates: 200 ng/mL Amphetamine: 500 ng/mL Cannabinoids: 50ng/mL Methadone: 200 ng/mL Methamphetamine: 500 ng/mL Opiates: 100 ng/mL or 2000 ng/mL Cocaine: 150 ng/mL Propoxyphene:300 ng/mL Tricyclics:300 ng/mL Oxycodone: 100 ng/mL PCP: 25ng/mL The results are to be used only for medical (i.e., treatment) purposes. Unconfirmed screening results must not be used for non-medical purposes (e.g., employment testing, legal testing). Performing Organization Address City/[facility]/Zipcode Phone Number [facility] CLIA: [id number], [address] [place] [address] URINALYSIS (02/03/2019 5:32 PM CDT) APPEARANCE Clear Clear [facility] COLOR Yellow Yellow [facility] PH 5.5 4.8 - 8.0 [facility] SP GRAVITY >=1.030 1.003 - 1.030 [facility] GLU U QUAL Negative Negative [facility] BLOOD Large (A) Negative [facility] KETONES Negative Negative [facility] PROTEIN Negative Negative [facility] UROBILIN 0.2 mg/dL 0-1.0 mg/dL [facility] BILIRUBIN Negative Negative [facility] NITRITE Negative Negative [facility] LEUK BLAKE Negative Negative [facility] RBC/HPF 15 (H) 0 - 3 HPF [facility] WBC/HPF 1 0 - 5 HPF [facility] BACTERIA Moderate (A) Negative [facility] MUCOUS Slight (A) Negative LPF [facility] SQ EPITH 1 HPF [facility] Specimen Urine - URINE, CLEAN CATCH Performing Organization Address City/State/Zipcode Phone Number [facility] CLIA: [id number], [address] [place] [address] documented in this encounter Visit Diagnoses Diagnosis Recurrent seizures - Primary Other forms of epilepsy and recurrent seizures without mention of intractable epilepsy Seizure Other convulsions documented in this encounter Administered Medications Medication Order MAR Action Action Date Dose Rate Site heparin injection 5,000 Given 02/03/2019 11:15 PM 5,000 Units Abdomen-SC Units CDT 5,000 Units, Subcutaneous, Q8H, First dose on Thu02/03/19 at 2200, Until Discontinued, Routine levETIRAcetam (KEPPRA) tablet 1,500 mg Given 02/04/2019 8:13 AM CDT 1,500 mg 1,500 mg, Oral, BID, First dose on Thu02/03/19 at 2200, Until Discontinued, Routine Given 02/03/2019 11:14 PM CDT 1,500 mg phenytoin Extended (DILANTIN KAPSEAL) capsule 100 mg 100 mg, Oral, TID, First dose on Thu02/04/19 at 0800, Until Discontinued, Routine Medication Order MAR Action Action Date Dose Rate Site fosphenytoin (CEREBYX) Given 02/03/2019 6:58 PM CDT 1,408 mg PE injection 1,408 mg PE 1,408 mg PE (20 mg PE/kg 70.4 kg), IV Piggyback, ONCE, 1 dose, Neris 02/03/19 at 1945, SUSAN KCL (KLOR-CON M20) tablet 40 mEq Given 02/04/2019 2:53 AM CDT 40 mEq 40 mEq, Oral, ONCE, 1 dose, Thu02/04/19 at 0330, Routine potassium acetate 40 mEq in NaCl 0.9% (NS) Given 02/04/2019 3:22 AM CDT 40 mEq piggyback 40 mEq, IV Piggyback, ONCE, 1 dose, Thu02/04/19 at 0330, 250 mL documented in this encounter documented as of this encounter
--- OUTSIDE RECORDS SUMMARY | 2019-07-03 20:51 | XMS REPORT | Summary of Care ---
:1990 Author Organization [address] [address] Care Team Providers Name Role Phone Doctor Unassigned, [place] [employer] Hmo Unavailable Bibi HicksP Primary Care Provider Reason for Visit Reason Comments Follow-up ED F/U [facility] (02/02/19) Encounter Details Date Type Department Care Team Description 02/02/[address] [facility] Parker Nieves, Follow-up (ED F/U Accountable Care RN [address] Yvonne FARIA (02/02/19)) [place] [id number] Allergies No Known Allergiesdocumented as of this encounter (statuses as of 02/02/2019) Medications Medication Sig Dispensed Refills Start Date End Date Status levETIRAcetam 750 mg Take 2 tablets by 60 tablet 2 12/14/2017 Active tablet mouth 2 (two) times daily. ibuprofen 600 mg Take 1 tablet by 60 tablet 2 11/19/2018 Active tabletIndications: mouth every 6 Breakthrough bleeding (six) hours as on depo provera needed for Pain (scale 1-3) or Pain (scale 4-6). Hospital, Clinic, or Other Ordered Dose Route Frequency Start Date End Date Status Facility Administered Medication medroxyPROGESTERone 150 mg IM [id number] 08/30/2018 07/31/2019 Active (DEPO-PROVERA) injection 150 mgIndications: control counseling documented as of this encounter (statuses as of 02/02/2019) Active Problems Problem Noted Date Obesity, unspecified classification, unspecified obesity type, unspecified whether serious comorbidity present BMI 27.0-27.9,adult 05/12/2018 Well woman exam 05/12/2018 Encounter for contraceptive management, unspecified type 05/12/2018 Corpus luteum cyst or hematoma 03/10/2018 Papanicolaou smear of cervix with low grade squamous intraepithelial 2017 lesion (LGSIL) Status epilepticus 06/14/2017 Seizures 06/13/2017 documented as of this encounter (statuses as of 02/02/2019) Resolved Problems Problem Noted Date Resolved Date [...] as of this encounter (statuses as of 02/02/2019) Immunizations Name Administration Dates Next Due Influenza Virus Vaccine Quad IM 3+ YRS 06/22/2017 Rho (d) Immune Globulin 12/13/2017, 12/21/2009 Tdap 10/22/2017 documented as of this encounter Social History Tobacco Use Types Packs/Day Years Used Date Never Smoker Smokeless Tobacco: Never Used Alcohol Use Drinks/Week oz/Week Comments No Sex Assigned at Date Recorded Not on file Job Start Date Occupation Industry Not on file Not on file Not on file Travel History Travel Start Travel End No recent travel history available. documented as of this encounter Last Filed Vital Signs Not on filedocumented in this encounter Progress Notes Parker Nieves RN - 02/02/2019 4:47 PM CDTJenichol Hope is a 28 year old female. Attempted to contact patient to help schedule a follow up appointment with her PCP following her recent ED visit, but she did not answer the call. Left a voicemail message requesting call back. Parker Nieves MSN, RN [facility] Care Management [phone] documented in this encounter Plan of Treatment Health Maintenance Due Date Last Done Comments INFLUENZA VACCINE (#1) 2019 06/22/2017 PAP SMEAR 07/13/2021 07/13/2018, 06/22/2017 DTaP,Tdap,and Td Vaccines (2 10/23/2027 10/22/2017 - Td) PNEUMOCOCCAL 0-64 YEARS Aged Out No longer eligible based COMBINED SERIES on patient's age to complete this topic documented as of this encounter Results Not on filedocumented in this encounter Insurance Payer Benefit Plan Subscriber ID Effective Phone Address Type / Group Dates CIGNA CIGNA II [id number] 2017-Prese HMO/PPO/POS nt HEALTHY [id number] xxxxxxxxx 2018-Pres [phone] Medicaid [place] [employer] ent [address] [place] [address] documented as of this encounter Advance Directives Name Relationship Healthcare Agent Communication Relationship Toya Schumacher Mother Primary healthcare agent
--- OUTSIDE RECORDS SUMMARY | 2019-07-03 20:51 | XMS REPORT | Summary of Care ---
:1990 Author Organization [facility] Address [address] [place] [address] Care Team Providers Name Role Phone Doctor Unassigned, [place] [employer] Hmo Unavailable Bibi Hicks Primary Care Provider Reason for Visit Auth/Cert Status Reason Specialty Diagnoses / Procedures Referred By Contact Referred To Contact [facility] [place] [facility] [address] [place] [address] Encounter Details Date Type Department Care Team Description 02/24/2019 Hospital Encounter [facility] Caesar Hussein MD CENTER [address] [facility] [id number] [place] [address] [place] [address] Allergies No Known Allergiesdocumented as of this encounter (statuses as of 02/27/2019) Medications Medication Sig Dispensed Refills Start Date [...] Facility Administered Medication medroxyPROGESTERone 150 mg IM [id number] 08/30/2018 07/31/2019 Active (DEPO-PROVERA) injection 150 mgIndications: control counseling documented as of this encounter (statuses as of 02/27/2019) Active Problems Problem Noted Date Seizure 02/03/2019 Obesity, unspecified classification, unspecified obesity type, unspecified whether serious comorbidity present BMI 27.0-27.9,adult 05/12/2018 Well woman exam 05/12/2018 Encounter for contraceptive management, unspecified type 05/12/2018 Corpus luteum cyst or hematoma 03/10/2018 Papanicolaou smear of cervix with low grade squamous intraepithelial 2017 lesion (LGSIL) Status epilepticus 06/14/2017 Seizures 06/13/2017 documented as of this encounter (statuses as of 02/27/2019) Resolved Problems Problem Noted Date Resolved Date (spontaneous vaginal delivery) 12/13/2017 01/04/2018 Liveborn by vaginal delivery 12/13/2017 01/04/2018 37 weeks [...] as of this encounter (statuses as of 02/27/2019) Immunizations Name Administration Dates Next Due Influenza Virus Vaccine Quad IM 3+ YRS 06/22/2017 Rho (d) Immune Globulin 12/13/2017, 12/21/2009 Tdap 10/22/2017 documented as of this encounter Social History Tobacco Use Types Packs/Day Years Used Date Light Tobacco Smoker Smokeless Tobacco: Never Used Alcohol Use Drinks/Week oz/Week Comments No Education [...] Signs Not on filedocumented in this encounter Plan of Treatment Health Maintenance Due Date Last Done Comments PNEUMOCOCCAL 0-64 YEARS COMBINED SERIES (1 11/08/1995 of 1 - PPSV23) INFLUENZA VACCINE (#1) 2019 06/22/2017 PAP SMEAR 07/13/2021 07/13/2018, 06/22/2017 DTaP,Tdap,and Td Vaccines (2 - Td) 10/23/2027 10/22/2017 documented as of this encounter Results Not on filedocumented in this encounter documented as of this encounter
--- OUTSIDE RECORDS SUMMARY | 2019-07-03 20:51 | XMS REPORT | Summary of Care ---
:[address] [facility] - Health Address [address] [place] [address] Care Team Providers Name Role Phone Doctor Unassigned, [place] [employer]mo Unavailable Bibi Hicks Primary Care Provider Reason for Visit Reason Comments Transition Of Care Encounter Details Date Type Department Care Team Description 02/07/2019 Transition of Care [facility] Transition Of [facility] [address] Allergies No Known Allergiesdocumented as of this encounter (statuses as of 02/08/2019) Medications Medication Sig Dispensed Refills Start Date [...] Facility Administered Medication medroxyPROGESTERone 150 mg IM [id number] 08/30/2018 07/31/2019 Active (DEPO-PROVERA) injection 150 mgIndications: control counseling documented as of this encounter (statuses as of 02/08/2019) Active Problems Problem Noted Date Seizure 02/03/2019 Obesity, unspecified classification, unspecified obesity type, unspecified whether serious comorbidity present BMI 27.0-27.9,adult 05/12/2018 Well woman exam 05/12/2018 Encounter for contraceptive management, unspecified type 05/12/2018 Corpus luteum cyst or hematoma 03/10/2018 Papanicolaou smear of cervix with low grade squamous intraepithelial 2017 lesion (LGSIL) Status epilepticus 06/14/2017 Seizures 06/13/2017 documented as of this encounter (statuses as of 02/08/2019) Resolved Problems Problem Noted Date Resolved Date [...] as of this encounter (statuses as of 02/08/2019) Immunizations Name Administration Dates Next Due Influenza [...] Type / Group Dates CIGNA CIGNA II [id number] 2017-Prese HMO/PPO/POS nt HEALTHY [id number]-RMCHP xxxxxxxxx 2018-Pres [phone] Medicaid [place] [employer] ent [address] [place] [address] documented as of this encounter
--- OUTSIDE RECORDS SUMMARY | 2019-07-03 20:51 | XMS REPORT ---
:1990 [facility] [address] [place] [address] Care Team Providers Name Role Phone MILES RODAS Unavailable Unavailable Payers Payer Name Policy Type Policy Number Effective Date Expiration Date Problems This patient has no known problems. Allergies, Adverse Reactions, Alerts Allergy Allergy Status Severity Reaction(s) Onset Inactive Treating Comments Name Type Date Date Clinician No Known DA Active U 2019-02 Allergies -11 00:00:0 0 No Known DA Active U 2017-04 Allergies -24 00:00:0 0 Medications This patient has no known medications. Results Test Description Test Time Test Comments Text Results Atomic Results Result Comments RPR Qualitative 2019-02-25 12:07:58 Test Item Value Reference Range Comments RPR Qual (test code=RPR Qual) Non-Reactive Non-Reactive Reactive Control (test code=Reactive Control) Reactive Weak Reactive Control (test code=Weak Reactive Control) Weak Reactive Non-Reactive Control (test code=Non-Reactive Control) Non-Reactive Lot # (test code=Lot #) [id number] Expiration Dt (test code=Expiration Dt) 04-14-2020 Thyroid Stimulating [id number] 07:59:52 Test Item Value Reference Range Comments TSH (test code=TSH) 0.717 mIU/mL 0.270-4.200 Lipid [id number] 07:52:46 Test Item Value Reference Range Comments Cholesterol Total (test 141 mg/dL 0-200 RISK OF HEART DISEASEPublished code=Cholesterol Total) by [place] [employer] Analyte Optimal Borderline Increased RiskCHOL <200 200-239 >240TRIG <150 150-199 >200HDL Male >60 <40HDL Female >60 <50LDL <100 130-159 >160LDL Near optimal is 100-129 Triglycerides (test 59 mg/dL 9-200 code=Triglycerides) HDL (test code=HDL) 57 mg/dL 50-60 LDL (test code=LDL) 73 mg/dL 0-130 The equation being used in this calculation is LDL=(Chol - HDL) - (Trig / 5) VLDL (test code=VLDL) 12 mg/dL 5-40 The equation being used in this calculation is VLDL=Trig / 5 Chol/HDL (test 2.5 ratio 0.0-4.4 code=Chol/HDL) LDL/HDL Ratio (test 1 The equation being used in this code=LDL/HDL Ratio) calculation is LDL/HDL Ratio=LDL Calc/HDL Chol Urine Drug [id number] 15:27:40 Test Item Value Reference Range Comments Amphetamine Screen Ur (test Negative Negative code=Amphetamine Screen Ur) Barbiturate Screen Ur (test Negative Negative code=Barbiturate Screen Ur) Benzodiazepines Ur (test POSITIVE Negative code=Benzodiazepines Ur) Cocaine Screen Ur (test Negative Negative code=Cocaine Screen Ur) U Methadone Scr (test code=U Negative Negative Methadone Scr) Opiate Screen Ur (test Negative Negative code=Opiate Screen Ur) U PCP Scrn (test code=U PCP Negative Negative Scrn) Cannabinoid Screen Ur (test Negative Negative code=Cannabinoid Screen Ur) U TCA (test code=U TCA) Negative Negative The results of all drug screen tests are only preliminary. Clinical consideration and professional judgment should be applied to any drug of abuse test result, particularly when preliminary positive results are obtained. Please order a separate confirmatory test if desired. Comprehensive Metabolic [id number] 15:15:20 Test Item Value Reference Range Comments Sodium Level (test code=Sodium Level) 140.0 mmol/L 135.0-145.0 Potassium Level (test code=Potassium Level) 3.8 mmol/L 3.5-5.1 Chloride Level (test code=Chloride Level) 103 mmol/L 98-105 CO2 (test code=CO2) 24 mmol/L 22-29 Anion Gap (test code=Anion Gap) 13 mmol/L 7-16 BUN (test code=BUN) 7.20 mg/dL 6.00-20.00 Creatinine Level (test code=Creatinine Level) 0.70 mg/dL 0.50-0.90 BUN/Creat Ratio (test code=BUN/Creat Ratio) 10 Glucose Level (test code=Glucose Level) 135 mg/dL 70-115 Calcium Level (test code=Calcium Level) 9.4 mg/dL 8.3-10.5 Alk Phos (test code=Alk Phos) 95 U/L 35-104 Bilirubin Total (test code=Bilirubin Total) 0.2 mg/dL 0.1-0.9 Albumin Level (test code=Albumin Level) 5.0 g/dL 3.5-5.2 Protein Total (test code=Protein Total) 7.7 g/dL 6.4-8.3 ALT (test code=ALT) 24 U/L 1-33 AST (test code=AST) 24 U/L 1-32 Globulin (test code=Globulin) 2.7 g/dL 2.9-3.1 A/G Ratio (test code=A/G Ratio) 1.9 ratio Comprehensive Metabolic [id number] 15:15:20 Test Item Value Reference Range Comments Sodium Level (test 140.0 mmol/L 135.0-145.0 code=Sodium Level) Potassium Level (test 3.8 mmol/L 3.5-5.1 code=Potassium Level) Chloride Level (test 103 mmol/L 98-105 code=Chloride Level) CO2 (test code=CO2) 24 mmol/L 22-29 Anion Gap (test 13 mmol/L 7-16 code=Anion Gap) BUN (test code=BUN) 7.20 mg/dL 6.00-20.00 Creatinine Level (test 0.70 mg/dL 0.50-0.90 code=Creatinine Level) BUN/Creat Ratio (test 10 code=BUN/Creat Ratio) Glucose Level (test 135 mg/dL 70-115 code=Glucose Level) Calcium Level (test 9.4 mg/dL 8.3-10.5 code=Calcium Level) Alk Phos (test code=Alk 95 U/L 35-104 Phos) Bilirubin Total (test 0.2 mg/dL 0.1-0.9 code=Bilirubin Total) Albumin Level (test 5.0 g/dL 3.5-5.2 code=Albumin Level) Protein Total (test 7.7 g/dL 6.4-8.3 code=Protein Total) ALT (test code=ALT) 24 U/L 1-33 AST (test code=AST) 24 U/L 1-32 Globulin (test 2.7 g/dL 2.9-3.1 code=Globulin) A/G Ratio (test code=A/G 1.9 ratio Ratio) eGFR AA (test code=eGFR >60 mL/min/1.73 m2 eGFR (estimated AA) Glomerular Filtration Rate) is an estimated value, calculated from the patient's serum creatinine using the MDRD equation. It is NOT the patient's actual GFR. The eGFR provides a more clinically useful measure of kidney disease than serum creatinine alone.This calculation takes sex and race into account, if the information is provided. If the race is not provided, and the patient is -[place], multiply by 1.212. If sex is not provided, and the patient is female, multiply by 0.742. Results for patients <18 years of age have not been validated by the MDRD study and should be interpreted with caution. eGFR Result Interpretation:eGFR > or=60 is in the Normal RangeeGFR < 60 may mean kidney diseaseeGFR < 15 may mean kidney failure Ranges recommended by the National Kidney Foundation, http://nkdep.nih.gov Alcohol [id number] 15:15:20 Test Item Value Reference Range Comments Ethanol Level (test <0.00 g/dL 0.00-0.01 Intoxicated 0.080 g/dL or more code=Ethanol Level) Ethanol Inst (test <0 code=Ethanol Inst) Comprehensive Metabolic [id number] 15:15:20 Test Item Value Reference Range Comments Sodium Level (test 140.0 mmol/L 135.0-145.0 code=Sodium Level) Potassium Level (test 3.8 mmol/L 3.5-5.1 code=Potassium Level) Chloride Level (test 103 mmol/L 98-105 code=Chloride Level) CO2 (test code=CO2) 24 mmol/L 22-29 Anion Gap (test 13 mmol/L 7-16 code=Anion Gap) BUN (test code=BUN) 7.20 mg/dL 6.00-20.00 Creatinine Level (test 0.70 mg/dL 0.50-0.90 code=Creatinine Level) BUN/Creat Ratio (test 10 code=BUN/Creat Ratio) Glucose Level (test 135 mg/dL 70-115 code=Glucose Level) Calcium Level (test 9.4 mg/dL 8.3-10.5 code=Calcium Level) Alk Phos (test code=Alk 95 U/L 35-104 Phos) Bilirubin Total (test 0.2 mg/dL 0.1-0.9 code=Bilirubin Total) Albumin Level (test 5.0 g/dL 3.5-5.2 code=Albumin Level) Protein Total (test 7.7 g/dL 6.4-8.3 code=Protein Total) ALT (test code=ALT) 24 U/L 1-33 AST (test code=AST) 24 U/L 1-32 Globulin (test 2.7 g/dL 2.9-3.1 code=Globulin) A/G Ratio (test code=A/G 1.9 ratio Ratio) eGFR AA (test code=eGFR >60 mL/min/1.73 m2 eGFR (estimated AA) Glomerular Filtration Rate) is an estimated value, calculated from the patient's serum creatinine using the MDRD equation. It is NOT the patient's actual GFR. The eGFR provides a more clinically useful measure of kidney disease than serum creatinine alone.This calculation takes sex and race into account, if the information is provided. If the race is not provided, and the patient is -[place], multiply by 1.212. If sex is not provided, and the patient is female, multiply by 0.742. Results for patients <18 years of age have not been validated by the MDRD study and should be interpreted with caution. eGFR Result Interpretation:eGFR > or=60 is in the Normal RangeeGFR < 60 may mean kidney diseaseeGFR < 15 may mean kidney failure Ranges recommended by the National Kidney Foundation, http://nkdep.nih.gov eGFR Non-AA (test >60.00 mL/min/1.73 eGFR (estimated code=eGFR Non-AA) m2 Glomerular Filtration Rate) is an estimated value, calculated from the patient's serum creatinine using the MDRD equation. It is NOT the patient's actual GFR. The eGFR provides a more clinically useful measure of kidney disease than serum creatinine alone.This calculation takes sex and race into account, if the information is provided. If the race is not provided, and the patient is -[place], multiply by 1.212. If sex is not provided, and the patient is female, multiply by 0.742. Results for patients <18 years of age have not been validated by the MDRD study and should be interpreted with caution. eGFR Result Interpretation:eGFR > or=60 is in the Normal RangeeGFR < 60 may mean kidney diseaseeGFR < 15 may mean kidney failure Ranges recommended by the National Kidney Foundation, http://nkdep.nih.gov Urinalysis [id number] 15:11:20 Test Item Value Reference Range Comments UA WBC (test code=UA WBC) 6-10 0-5 UA RBC (test code=UA RBC) 0-5 0-5 UA Bacteria (test code=UA Bacteria) Moderate UA Squam Epithelial (test code=UA Squam Epithelial) TNTC UA Mucous (test code=UA Mucous) Few Urinalysis with Microscopic if [id number] 14:42:58 Test Item Value Reference Range Comments UA Color (test code=UA Color) YELLO Yellow UA Appear (test code=UA CLEAR Clear Appear) UA pH (test code=UA pH) 6.5 UA Spec Grav (test code=UA 1.014 1.001-1.035 Spec Grav) UA Glucose (test code=UA NEG Negative Glucose) UA Ketones (test code=UA NEG Negative Ketones) UA Blood (test code=UA Blood) 250 cells/mcL Negative UA Protein (test code=UA NEG Negative Protein) UA Bili (test code=UA Bili) NEG Negative UA Urobilinogen (test code=UA 0.2 mg/dL Urobilinogen) UA Nitrite (test code=UA NEG Negative Nitrite) UA Leuk Est (test code=UA Leuk NEG Negative Est) UA Micro Ind? (test code=UA Indicated Not Indicated Result created by rule Micro Ind?) GL_SJM_UA_MICRO_IND Complete Blood Count with [id number] 14:37:26 Test Item Value Reference Range Comments WBC (test code=WBC) 9.2 x10 4.4-10.5 RBC (test code=RBC) 4.84 x10 3.75-5.20 Hgb (test code=Hgb) 10.8 g/dL 12.2-14.8 Hct (test code=Hct) 35.3 % 36.5-44.4 MCV (test code=MCV) 72.90 fL 80.00-100.00 MCHC (test code=MCHC) 30.60 g/dL 32.00-37.50 MCH (test code=MCH) 22.3 pg 27.0-32.5 RDW CV (test code=RDW CV) 14.8 % 11.5-14.5 Platelets (test 332.0 x10 140.0-440.0 code=Platelets) MPV (test code=MPV) 9.7 fL Slide Review (test code=Slide Auto Auto Result created by Review) GL_SJM_SLIDE_REV_AUTO GL_SJM_XN_RFLX nRBC (test code=nRBC) 0 NRBC Abs (test code=NRBC Abs) 0.00 x10 Pos Morph XN (test code=Pos A Morph XN) IPF (test code=IPF) 0 % Automated [id number] 14:37:26 Test Item Value Reference Range Comments Neutro Auto (test code=Neutro Auto) 65.8 % 36.0-70.0 Lymph Auto (test code=Lymph Auto) 25.5 % 12.0-44.0 [place] Auto (test code=[place] Auto) 7.3 % 0.0-11.0 Eos, Auto (test code=Eos, Auto) 0.7 % 0.0-7.0 Basophil Auto (test code=Basophil Auto) 0.5 % 0.0-2.0 Neutro Absolute (test code=Neutro Absolute) 6.0 x10 1.6-7.4 Lymph Absolute (test code=Lymph Absolute) 2.34 x10 .50-4.60 [place] Absolute (test code=[place] Absolute) .67 x10 .00-1.20 Eos Absolute (test code=Eos Absolute) 0.06 x10 0.00-0.74 Baso Absolute (test code=Baso Absolute) 0.05 x10 0.00-0.21 IG [id number] 14:37:26 Test Item Value Reference Range Comments IG (test code=IG) 0.2 % 0.0-5.0 IG Abs (test code=IG Abs) 0 x10 HCG Qualitative [id number] 14:34:08 Test Item Value Reference Range Comments hCG Ur (test code=hCG Ur) Negative If the result is "Negative" in patients suspected to be , recommend retest with a sample obtained 48 to 72 hours later, or by ordering a quantitative assay. If the result is "Borderline" testing should be repeated in 48 to 72 hours. Lot # (test code=Lot #) [id number] Expiration Dt (test 2020-03-14 code=Expiration Dt) Neg Control (test code=Neg Negative Control) Pos Control (test code=Pos Positive Control) Internal QC (test Acceptable code=Internal QC) DRUGS OF ABUSE SCREEN [id number] 17:11:00 Test Item Value Reference Range Comments URN COCAINE (test NEGATIVE NEGATIVE Cocaine cut-off concentration: code=COCAURN) 300 ng/mL URN CANNABINOIDS (test NEGATIVE NEGATIVE Cannabinoids cut-off code=CANNABURN) concentration: 50 ng/mL URN AMPHETAMINE (test NEGATIVE NEGATIVE Amphetamine cut-off code=AMPHETURN) concentration: 1000 ng/mL URN BARBITURATE (test NEGATIVE NEGATIVE Barbiturate cut-off code=BARBITURN) concentration: 200 ng/mL URN BENZODIAZEPINE (test NEGATIVE NEGATIVE Benzodiazepine cut-off code=BENZOURN) concentration: 200 ng/mL URN OPIATES (test NEGATIVE NEGATIVE Opiates cut-off concentration: code=OPIATURN) 200 ng/mL URN PHENCYCLIDINE (PCP) (test NEGATIVE NEGATIVE Phencyclidine(PCP) cut-off code=PHENCURN) concentration: 25 ng/ml URN METHADONE (test NEGATIVE NEGATIVE Methadone cut-off code=METHAURN) concentration: 300 ng/mL URINALYSIS [id number] 17:08:00 Test Item Value Reference Range Comments UA COLOR (test code=COLU) YELLOW UA APPEARANCE (test code=APPU) SLHZY UA GLUCOSE DIPSTICK (test code=DGLUU) NORMAL mg/dl NORMAL UA BILIRUBIN DIPSTICK (test code=BILU) NEGATIVE mg/dL NEGATIVE UA KETONE DIPSTICK (test code=KETU) NEGATIVE mg/dl NEGATIVE UA SPECIFIC GRAVITY (test code=SGU) 1.020 1.000-1.030 UA BLOOD DIPSTICK (test code=RIVER) 250 Gilbert/micL Gilbert/micL NEGATIVE UA PH DIPSTICK (test code=MARY) 6.0 5.0-9.0 UA PROTEIN DIPSTICK (test code=PROU) NEGATIVE mg/dl NEGATIVE UA UROBILINIOGEN DIPSTICK (test NORMAL mg/dl NORMAL code=URO) UA NITRITE DIPSTICK (test code=KIET) NEGATIVE NEGATIVE UA LEUKOCYTE ESTERASE DIPSTICK (test NEGATIVE Bryan/micL NEGATIVE code=LEUU) UA WBC (test code=WBCU) 0-3 WBC/HPF NONE UA RBC (test code=RBCU) 10-25 RBC/HPF 0-3 UA EPITHELIAL CELLS (test code=EPIU) 5-10 EPI/HPF 0-3 UA BACTERIA (test code=BACU) MOD NONE URINALYSIS [id number] 17:00:00 Test Item Value Reference Range Comments UA COLOR (test code=COLU) UA APPEARANCE (test code=APPU) UA GLUCOSE DIPSTICK (test code=DGLUU) NORMAL mg/dl NORMAL UA BILIRUBIN DIPSTICK (test code=BILU) NEGATIVE mg/dL NEGATIVE UA KETONE DIPSTICK (test code=KETU) NEGATIVE mg/dl NEGATIVE UA SPECIFIC GRAVITY (test code=SGU) 1.020 1.000-1.030 UA BLOOD DIPSTICK (test code=RIVER) 250 [place]/micL Gilbert/micL NEGATIVE UA PH DIPSTICK (test code=MARY) 6.0 5.0-9.0 UA PROTEIN DIPSTICK (test code=PROU) NEGATIVE mg/dl NEGATIVE UA UROBILINIOGEN DIPSTICK (test NORMAL mg/dl NORMAL code=URO) UA NITRITE DIPSTICK (test code=KIET) NEGATIVE NEGATIVE UA LEUKOCYTE ESTERASE DIPSTICK (test NEGATIVE Bryan/micL NEGATIVE code=LEUU) UA WBC (test code=WBCU) WBC/HPF NONE UA RBC (test code=RBCU) RBC/HPF 0-3 UA EPITHELIAL CELLS (test code=EPIU) EPI/HPF 0-3 UA BACTERIA (test code=BACU) NONE HCG SERUM [id number] 16:52:00 Test Item Value Reference Range Comments HCG SERUM QUAL (test code=HCGQL) NEGATIVE NEGATIVE - CT HEAD/BRAIN W/O [id number] 16:51:00 FAX: Theresa Fields MD [place]: St: REG Name: SAHRA NTETLES [facility] : 1990 Age/S: 28/F [address] [facility] Unit: [id number] Loc: [place], [place] Phys: [place] [id number] Acct: [id number] Dis Date: Status: REG ER PHONE #: [phone] Exam Date: 02/23/2019 1642 FAX #: [phone] Reason: SEIZURE EXAMS: CPT CODE: [id number] CT HEAD/BRAIN W/O CONT 04040 Dictation location: U19. CT HEAD WITHOUT CONTRAST. HISTORY: SEIZURE COMPARISON: No comparison is available. TECHNIQUE: Axial CT images of the head were obtained with coronal and/or sagittal reformattedviews. Automated exposure control, iterative reconstruction technique, and/or adjustment of mA and/or kV according to patient's size was utilized for radiation dose reduction. IV CONTRAST: None. FINDINGS: No intracranial abnormalities such as hemorrhage, mass, mass effect, hydrocephalus, midline shift, extra-axial fluid collection or secondary signs of an acute infarct are noted. The calvarium and skull base are intact.The visualized paranasal sinus and mastoid air cells are clear. IMPRESSION: No evidence of acute intracranial abnormality. at 1651 Reported and signed by: Mark Morrison M.D. CC: Theresa Fields MD Technologist: SAHRA DICKSON Trnscrd Dt/Tm: 02/23/2019 ([id number]) [id number] Orig Print D/T: S: 02/23/2019 (1654 PAGE 1 Signed ReportBASIC METABOLIC [id number] 16:31:00 Test Item Value Reference Range Comments SODIUM (test code=NA) 138 mmol/l 134.0-147.0 POTASSIUM (test code=K) 3.8 mmol/L 3.6-5.2 CHLORIDE (test code=CL) 102 mmol/l 98.0-107.0 CARBON DIOXIDE (test code=CO2) 26.7 mmol/l 21.0-33.0 ANION GAP (test code=GAP) 13.1 0-20 GLUCOSE (test code=GLU) 110 mg/dl 70.0-110.0 BLOOD UREA NITROGEN (test code=BUN) 8 mg/dl 7.0-18.0 CREATININE (test code=CREAT) 0.66 mg/dL 0.60-1.30 GFR NON BLACK (test code=GFRNONBLACK) 112 mL/min 110-120 GFR BLACK (test code=GFRBLACK) 136 mL/min 133-145 CALCIUM (test code=CA) 8.8 mg/dl 8.0-10.5 BASIC METABOLIC [id number] 16:26:00 Test Item Value Reference Range Comments SODIUM (test code=NA) 138 mmol/l 134.0-147.0 POTASSIUM (test code=K) 3.8 mmol/L 3.6-5.2 CHLORIDE (test code=CL) 102 mmol/l 98.0-107.0 CARBON DIOXIDE (test code=CO2) 26.7 mmol/l 21.0-33.0 ANION GAP (test code=GAP) 13.1 0-20 GLUCOSE (test code=GLU) mg/dl 70.0-110.0 BLOOD UREA NITROGEN (test code=BUN) mg/dl 7.0-18.0 CREATININE (test code=CREAT) mg/dL 0.60-1.30 GFR NON BLACK (test code=GFRNONBLACK) mL/min 110-120 GFR BLACK (test code=GFRBLACK) mL/min 133-145 CALCIUM (test code=CA) mg/dl 8.0-10.5 CBC W/AUTO [id number] 16:15:00 Test Item Value Reference Range Comments WHITE BLOOD CELL (test code=WBC) 8.0 K/mm3 4.5-11.0 RED BLOOD CELL (test code=RBC) 4.57 M/mm3 3.80-5.20 HEMOGLOBIN (test code=HGB) 10.1 gm/dL 12.0-16.0 HEMATOCRIT (test code=HCT) 33.6 % 36.0-48.0 MEAN CELL VOLUME (test code=MCV) 73.5 UM3 82.0-99.0 MEAN CELL HGB (test code=MCH) 22.1 UUG 25.5-32.5 MEAN CELL HGB CONCETRATION (test code=MCHC) 30.1 gm/dL 29.0-35.5 RED CELL DISTRIBUTION WIDTH (test code=RDW) 15.0 % 11.5-15.0 RED CELL DISTRIBUTION WIDTH SD (test 39.3 fL 34.8-50.2 code=RDW-SD) PLATELET COUNT (test code=PLT) 319 K/mm3 150-400 MEAN PLATELET VOLUME (test code=MPV) 10.5 fl 7.4-10.4 NEUTROPHIL % (test code=NT%) 59.5 % 49.0-76.0 IMMATURE GRANULOCYTE % (test code=IG%) 0.2 % 0.0-0.4 LYMPHOCYTE % (test code=LY%) 26.9 % 23.0-38.0 MONOCYTE % (test code=MO%) 10.4 % 1.0-10.0 EOSINOPHIL % (test code=EO%) 2.1 % 1.0-5.0 BASOPHIL % (test code=BA%) 0.9 % 0.0-1.0 NEUTROPHIL # (test code=NT#) 4.8 K/mm3 2.4-6.3 IMMATURE GRANULOCYTE # (test code=IG#) 0.02 x10 3/uL 0.00-0.07 LYMPHOCYTE # (test code=LY#) 2.2 K/mm3 1.2-4.0 MONOCYTE # (test code=MO#) 0.8 K/mm3 0.0-0.6 EOSINOPHIL # (test code=EO#) 0.2 K/MM3 0.0-0.7 BASOPHIL # (test code=BA#) 0.1 K/mm3 0.0-0.2 LIPID PROFILE (CORONARY RISK)2018-12-08 14:27:00 Test Item Value Reference Range Comments TRIGLYCERIDES (test 39 MG/DL 30-200 code=TRIG) CHOLESTEROL (test code=CHOL) 139 MG/DL 122-200 CHOLESTEROL/HDL RATIO (test 2.2 1.5-4.5 1. Initial classification code=CHOLHDL) based on total cholesterol: <200 mg/dl Desirable cholesterol [...] CHD risk in women. HDL CHOLESTEROL (test 63 MG/DL 40-60 code=HDL) LIPOPROTEIN LDL (test 68 MG/DL 62-130 code=LDL) LIPOPROTEIN VLDL (test 8 MG/DL 3-60 code=VLDL) RAPID PLASMA [id number] 10:31:00 Test Item Value Reference Range Comments RAPID PLASMA REAGIN (test code=RPR) Nonreactive Nonreactive GLYCOSYLATED HEMOGLOBIN (HA1C)2018-12-07 10:05:00 Test Item Value Reference Range Comments GLYCOSYLATED HEMOGLOBIN (HA1C) (test 5.8 % TOT HB 4.5-6.2 code=GLYHGB) [id number] 15:31:00 Test Item Value Reference Range Comments ACETAMINOPHEN (test < 1 MCG/ML 10-30 Acetaminophen is possibly code=ACET) toxic at levels of: 1. more than 150 MCG/ML 4 hours post ingestion. 2. more than 50 MCG/ML 12 hours post ingestion. [id number] 15:31:00 Test Item Value Reference Range Comments SALICYLATE (test code=BOSSMAN) < 3 MG/DL 0-20 Reference Range: Analgesic.................. < 10 mg/dl Therapeutic................ 15-20 mg/dl Mild Toxicity.............. > 30 mg/dl Severe Toxicity............ > 60 mg/dl UA RFLX [id number] 14:18:00 Test Item Value Reference Range Comments [...] SPECIMEN DESCRIPTION (test Clean Catch code=UASPEC) UA [id number] 14:18:00 Test Item Value Reference Range Comments UA WBC (test code=WBCU) < 10 #/hpf <10 UA RBC (test code=RBCU) 0-2 #/hpf NONE SEEN UA BACTERIA (test code=BACU) RARE #/hpf NONE SEEN UA SQUAMOUS CELLS (test code=SQU) 0 - 20 #/lpf <100 UA MUCUS (test code=MUCU) 1+ #/lpf NONE SEEN BASIC METABOLIC [id number] 14:16:00 Test Item Value Reference Range Comments [...] RATE 131 71-165 Reporting units: (test code=GFR) mL/min/1.73m\\S\\2 (Modified MDRD Formula) CREATININE (test code=CREAT) 0.55 MG/DL 0.60-1.00 CALCIUM (test code=CA) 9.4 MG/DL 8.7-10.5 HEPATIC FUNCTION [id number] 14:16:00 Test Item Value Reference Range Comments [...] PHOSPHATASE TOTAL 74 Units/L 50-136 (test code=ALKP) [id number] 14:16:00 Test Item Value Reference Range Comments CK (test code=CKT) 87 Units/L 26-192 [id number] 14:16:00 Test Item Value Reference Range Comments ALCOHOL (test code=ALC) < 3 MG/DL 0-10 0 - 10: Should be interpreted as NEGATIVE. 11 - 50: None to mild euphoria. 51 - 100: Mild influence on vision and dark adaptation. > 80: Legal intoxication; Depression of MEAT MANAGER; Increasing degree of poisoning. > 400: Fatalities reported. Results are for medical purposes only and not forlegal or employment evaluative purposes. BASIC METABOLIC [id number] 14:09:00 Test Item Value Reference Range Comments [...] RATE 131 71-165 Reporting units: (test code=GFR) mL/min/1.73m\\S\\2 (Modified MDRD Formula) CREATININE (test code=CREAT) 0.55 MG/DL 0.60-1.00 CALCIUM (test code=CA) 9.4 MG/DL 8.7-10.5 HEPATIC FUNCTION [id number] 14:09:00 Test Item Value Reference Range Comments TOTAL PROTEIN (test code=PROT) G/DL 6.4-8.2 ALBUMIN (test code=ALB) G/DL 3.4-5.0 GLOBULIN (test code=GLOB) G/DL 1.5-3.8 ALBUMIN/GLOBULIN RATIO (test code=A/G) 1.1-2.2 BILIRUBIN TOTAL (test code=BILT) MG/DL 0.0-1.0 BILIRUBIN DIRECT (test code=BILD) MG/DL 0.0-0.3 SGOT/AST (test code=AST) Units/L 15-37 SGPT/ALT (test code=ALT) Units/L 30-65 ALKALINE PHOSPHATASE TOTAL (test code=ALKP) Units/L 50-136 [id number] 14:09:00 Test Item Value Reference Range Comments CK (test code=CKT) Units/L 26-192 [id number] 14:09:00 Test Item Value Reference Range Comments ALCOHOL (test code=ALC) MG/DL 0-10 LACTIC ACID [id number] 13:50:00 Test Item Value Reference Range Comments LACTIC ACID POC (test 0.97 MMOL/L 0.90-1.70 Performed by certified code=LACTP) letterset press set up operator at [facility] [id number] 13:48:00 Test Item Value Reference Range Comments GLUBED (test code=GLUBED) 88 MG/DL 65-99 Performed by certified letterset press set up operator at [facility] DRUG OF ABUSE SCREEN [id number] 13:43:00 Test Item Value Reference Range Comments [...] confirmed by alternate methods (i.e., GC/MS) at [facility]. Results of screen may not be usedin criminal justice, job performance or professionalcredential review, or custody issues. Negative [place] Level ng/ml ----- Cocaine 300 Methamphetamine (Ecstacy) 500 Cannabinoids (THC) 50 Amphetamine 1000 Barbiturates 200 Benzodiazepines 200 Opiates 300 Phencyclidine (PCP) 25 UR HCG [id number] 13:39:00 Test Item Value Reference Range Comments UR HCG QUAL (test NEGATIVE NEGATIVE False negatives may occur when code=HCGQLU) levels of hCGare below 20 mIU/ml. When is still suspected, a new specimenshould be obtained after 48 hours and re-tested.If waiting 48 hours is not medically advisable,the test result should be confirmed using aquantitative hCG assay. UA RFLX [id number] 13:38:00 Test Item Value Reference Range Comments [...] SPECIMEN DESCRIPTION (test Clean Catch code=UASPEC) UA [id number] 13:38:00 Test Item Value Reference Range Comments UA WBC (test code=WBCU) #/hpf <10 UA RBC (test code=RBCU) #/hpf NONE SEEN UA SQUAMOUS CELLS (test code=SQU) #/lpf <100 UA RFLX [id number] 13:38:00 Test Item Value Reference Range Comments [...] SPECIMEN DESCRIPTION (test Clean Catch code=UASPEC) UA [id number] 13:38:00 Test Item Value Reference Range Comments UA WBC (test code=WBCU) #/hpf <10 UA RBC (test code=RBCU) #/hpf NONE SEEN UA SQUAMOUS CELLS (test code=SQU) #/lpf <100 CBC W/AUTO [id number] 13:26:00 Test Item Value Reference Range Comments [...] # (test code=BA#) 0.05 x10 3/uL 0.0-0.2 [id number] 19:07:00 Test Item Value Reference Range Comments LEVETIRACETAM (test 28.7 ug/mL 10.0-40.0 This test was developed and its code=LEVTAM) performance characteristicsdetermined by [facility]. It has not been cleared orapproved by the Food and Drug Administration.Performed At: [address] [id number] Dias MD Ph:[phone] BASIC METABOLIC [id number] 04:58:00 Test Item Value Reference Range Comments [...] RATE 137 71-165 Reporting units: (test code=GFR) mL/min/1.73m\\S\\2 (Modified MDRD Formula) CREATININE (test code=CREAT) 0.53 MG/DL 0.60-1.00 CALCIUM (test code=CA) 8.9 MG/DL 8.7-10.5 [id number] 04:58:00 Test Item Value Reference Range Comments MAGNESIUM (test code=MAG) 1.9 MG/DL 1.8-2.4 CBC W/AUTO [id number] 04:08:00 Test Item Value Reference Range Comments [...] X10 3/uL 0.0-0.2 - MRI BRAIN W/O [id number] 13:51:00 Patient Name: SAHRA NETTLES Unit No: [id number] EXAMS: CPT CODE: [id number] MRI BRAIN W/O CONTRAST 46641 Reason: sz INDICATION: Seizure COMPARISON: CT brain, [...] until the patient can hold still. at 1351 Reported and signed by: Lashell Anderson MD CC: Fanny Knowles DO; Jacob Gutierrez MD Technologist: Andre FRANCIS Trscrpt Dt/ (4625)Aurelio.DW6 Orig Print D/T: S: 09/17/2018 (6377) [facility] CntNAME: SAHRA NETTLES [address]EM[address] PHYS: [place] [address] : 1990 AGE: 27 SEX: F LOC: D.D313 1 PHONE #: [phone] EXAM DATE: 09/17/2018 STATUS: ADM IN FAX #: RAD NO: DC Dt: PAGE 1 Signed [id number] 07:25:00 Test Item Value Reference Range Comments PROLACTIN (test code=PROLAC) 24.6 ng/mL 4.8-23.3 Performed At: [facility] [address] [id number] Sb Man MD Ph:[phone] UA RFLX MICROSCOPIC [id number] 19:02:00 Test Item Value Reference Range Comments [...] met URINE SOURCE: Clean CatchUA RFLX MICROSCOPIC [id number] 18:56:00 Test Item Value Reference Range Comments [...] CULTURE NEEDED? (test code=UACULT) URINE SOURCE: Clean [id number] 15:56:00 Test Item Value Reference Range Comments CK (test code=CKT) 34 Units/L 26-192 BASIC METABOLIC [id number] 12:57:00 Test Item Value Reference Range Comments [...] RATE 119 71-165 Reporting units: (test code=GFR) mL/min/1.73m\\S\\2 (Modified MDRD Formula) CREATININE (test code=CREAT) 0.60 MG/DL 0.60-1.00 CALCIUM (test code=CA) 8.6 MG/DL 8.7-10.5 [id number] 12:57:00 Test Item Value Reference Range Comments CK (test code=CKT) 32 Units/L 26-192 CBC W/AUTO [id number] 12:33:00 Test Item Value Reference Range Comments [...] 0.0 X10 3/uL 0.0-0.2 TOTAL IRON BINDING [id number] 05:50:00 Test Item Value Reference Range Comments SERUM IRON (test code=IRON) 17 MCG/DL 50-170 TOTAL IRON BINDING CAPACITY (test code=TIBC) 363 MCG/DL 280-400 IRON SATURATION (test code=FESAT) 5 % 15-50 [id number] 05:50:00 Test Item Value Reference Range Comments FERRITIN (test code=LULI) 11 NG/ML 3-105 HEPATIC FUNCTION [id number] 05:32:00 Test Item Value Reference Range Comments [...] 50-136 (test code=ALKP) - CT HEAD/BRAIN W/O [id number] 20:19:00 Patient Name: SAHRA NETTLES Unit No: [id number] EXAMS: CPT CODE: [id number] CT HEAD/BRAIN W/O CONT 68784 Reason: seizure TECHNIQUE: Contiguous 5 mm images [...] Heath Technologist: Edel BURNS Trscrpt Dt / (2018)t.PAMELA Orig Print D/T: S: 07/2018 (2021) CTDI: DLP: [facility] NAME: [place] [id number] PHYS: NGA. - Keanu V[address] [address] : 1990 AGE: 27 SEX: F LOC: D.NER PHONE#: [phone] EXAM DATE: 07/2018 STATUS: REG ER FAX #: RAD NO: DC Dt: PAGE 1 Signed Report- XR CHEST 1 [id number] 20:18:00 Patient Name: [facility] Unit No: [id number] EXAMS: CPT CODE: [id number] XR CHEST 1 V 68211 Reason: screen for pneumonia FINDINGS: Single view ofthe chest shows normal heart size and pulmonary vasculature. The lungs are clear bilaterally. There is no focal infiltrate, pleural effusion or pneumothorax. IMPRESSION: No acute cardiopulmonary findings at 2018 Reported and signed by : Lashell Jimenez MD CC: Keanu Vázquez MD; Cristiane Heath Technologist: Edel Cade CT Trscrpt Dt/ (2017)Tristan Orig PrintD/T: S: 09/14/2018 (2020) [facility] NAME: [facility] PHYS: [place] [address] : 1990 AGE: 27 SEX: F LOC: MATT PHONE #: [phone] EXAM DATE: 09/14/2018 STATUS: REG ER FAX #: RAD NO: DC Dt: PAGE 1 Signed ReportHCG SERUM [id number] 20:04:00 Test Item Value Reference Range Comments HCG SERUM QUAL (test NEGATIVE NEGATIVE False negatives may occur when code=HCGQL) levels of hCGare below 10 mIU/ml. When is still suspected, a new specimenshould be obtained after 48 hours and re-tested.If waiting 48 hours is not medically advisable,the test result should be confirmed using aquantitative hCG assay. BASIC METABOLIC [id number] 19:51:00 Test Item Value Reference Range Comments [...] RATE 96 71-165 Reporting units: (test code=GFR) mL/min/1.73m\\S\\2 (Modified MDRD Formula) CREATININE (test code=CREAT) 0.72 MG/DL 0.60-1.00 CALCIUM (test code=CA) 9.3 MG/DL 8.7-10.5 CBC W/AUTO [id number] 19:46:00 Test Item Value Reference Range Comments [...] (test code=BA#) 0.05 x10 3/uL 0.0-0.2 BLOOD [id number] 10:00:00 Test Item Value Reference Range Comments CULTURE (Keenko) (test qipd=3992) No growth in 5 days HCG, QUANTITATIVE, [id number] 15:37:00 Test Item Value Reference Range Comments GONADOTROPIN, CHORIONIC (HCG) QUANT (DecoSnapAKER) 15015 mIU/mL 0-10 (test xodv=514) Non- Females: <10 mIU/mL Females: Gestation Age Reference Range(mIU/mL) 0.2-1 Week 5-50 1-2 Weeks 50-500 2-3 Weeks 100-5,000 3-4Weeks 500-10,000 4 -5 Weeks 1,000-50,000 5-6 Weeks 10,000-100,000 6-8 Weeks 15,000-200,000 2-3 Months 10,000-100,000COMPREHENSIVE METABOLIC [id number] 15:10:00 Test Item Value Reference Range Comments TOTAL PROTEIN (BEAKER) 7.0 gm/dL 6.0-8.3 (test zjhm=338) ALBUMIN (BEAKER) (test 3.9 g/dL 3.5-5.0 onlk=5747) ALKALINE PHOSPHATASE 50 U/L 40-150 (BEAKER) (test kavu=317) BILIRUBIN TOTAL (BEAKER) 0.5 mg/dL 0.2-1.2 (test jzzi=404) SODIUM (BEAKER) (test 140 meq/L 136-145 iszx=747) POTASSIUM (BEAKER) (test 3.4 meq/L 3.5-5.1 wqna=734) CHLORIDE (BEAKER) (test 107 meq/L 98-107 gazt=945) CO2 (BEAKER) (test 21 meq/L 22-29 bzym=608) BLOOD UREA NITROGEN 6 mg/dL 7-21 (BEAKER) (test jxfn=730) CREATININE (BEAKER) (test 0.54 mg/dL 0.57-1.25 mkob=241) GLUCOSE RANDOM (BEAKER) 76 mg/dL 70-105 (test fsax=982) CALCIUM (BEAKER) (test 9.2 mg/dL 8.4-10.2 lsjl=159) AST (SGOT) (BEAKER) (test 57 U/L 5-34 rqik=585) ALT (SGPT) (BEAKER) (test 84 U/L 6-55 wefw=924) EGFR (BEAKER) (test 135 mL/min/1.73 sq ESTIMATED GFR IS NOT prum=2900) m ACCURATE CREATININE CLEARANCE IN PREDICTING GLOMERULAR FILTRATION RATE. ESTIMATED GFR IS NOT APPLICABLE FOR DIALYSIS PATIENTS. CBC W/PLT COUNT & AUTO [id number] 14:53:00 Test Item Value Reference Range Comments WHITE BLOOD CELL COUNT (BEAKER) (test vzfd=429) 9.7 K/ L 3.5-10.5 RED BLOOD CELL COUNT (BEAKER) (test uddr=711) 4.31 M/ L 3.93-5.22 HEMOGLOBIN (BEAKER) (test kqvm=480) 10.0 GM/DL 11.2-15.7 HEMATOCRIT (BEAKER) (test btld=199) 31.9 % 34.1-44.9 MEAN CORPUSCULAR VOLUME (BEAKER) (test pvyu=004) 74.0 fL 79.4-94.8 MEAN CORPUSCULAR HEMOGLOBIN (BEAKER) (test 23.2 pg 25.6-32.2 drwt=897) MEAN CORPUSCULAR HEMOGLOBIN CONC (BEAKER) (test 31.3 GM/DL 32.2-35.5 wgiy=065) RED CELL DISTRIBUTION WIDTH (BEAKER) (test 19.0 % 11.7-14.4 cjxz=948) PLATELET COUNT (BEAKER) (test fmnb=585) 259 K/CU MM 150-450 MEAN PLATELET VOLUME (BEAKER) (test hbio=820) 9.9 fL 9.4-12.3 NUCLEATED RED BLOOD CELLS (BEAKER) (test 0 /100 WBC 0-0 mwab=666) NEUTROPHILS RELATIVE PERCENT (BEAKER) (test 70 % lqcm=977) LYMPHOCYTES RELATIVE PERCENT (BEAKER) (test 21 % ujtc=205) MONOCYTES RELATIVE PERCENT (BEAKER) (test 8 % fkde=235) EOSINOPHILS RELATIVE PERCENT (BEAKER) (test 1 % hpkt=277) BASOPHILS RELATIVE PERCENT (BEAKER) (test 1 % udoh=131) NEUTROPHILS ABSOLUTE COUNT (BEAKER) (test 6.75 K/ L 1.56-6.13 oimx=822) LYMPHOCYTES ABSOLUTE COUNT (BEAKER) (test 2.01 K/ L 1.18-3.74 ygrl=740) MONOCYTES ABSOLUTE COUNT (BEAKER) (test 0.75 K/ L 0.24-0.36 wcoe=990) EOSINOPHILS ABSOLUTE COUNT (BEAKER) (test 0.07 K/ L 0.04-0.36 xyrw=487) BASOPHILS ABSOLUTE COUNT (BEAKER) (test 0.08 K/ L 0.01-0.08 dygb=077) IMMATURE GRANULOCYTES-RELATIVE PERCENT (BEAKER) 0 % 0-1 (test ykqn=7143) U/S, , FIRST [id number] 07:52:00Reason for exam:-> Reason for exam:->please include [...] 1 day. An embryonic pole is evident. [place]-rump length measures 0.63 cm, correlating with estimated [...] 7 weeks 3 days. Signed: Lashell Garrido MDReport Verified Date/Time: 05/17/2017 07:52:37 Reading Location: [address] Ortho Consult Reading Room PREGNANCY SCREEN, [id number] 05:28:00 Test Item Value Reference Range Comments TEST URINE (BEAKER) (test jtzc=488) Positive MR, BRAIN, WITHOUT [id number] 18:54:00Reason for exam:->Stroke evaluationFINAL REPORT MRI brain [...] Verified Date/Time: 05/15/2017 18 :54:11 Reading Location: [facility] Radiology Reading Room EEG AWAKE AND [id number] 12:08:00Reason for exam:->? nonconvulsive statusDATE OF TEST: 2016DATE OF REPORT 05/15/2017 ACC: [id number] EE Start time: 1034 Stop time: 1054 ICD-10: R56.9CPT Code: 01171LFKSQUM: 26 y/o woman with epilepsy found down [...] recordings.Marika Smith M.D.Neurophysiology FellowSwathi Harper M.D.Neurophysiology Attending [id number] 04:27:00 Test Item Value Reference Range Comments PROCALCITONIN (BEAKER) (test wsie=8346) 0.17 ng/mL <0.05 SEPSIS RISK (ng/mL)Low: 0.05-0.50Intermediate: 0.51-2.00High: & gt;=[id number] 03:15:00 Test Item Value Reference Range Comments PHOSPHORUS (BEAKER) (test snyz=798) 3.1 mg/dL 2.3-4.7 [id number] 03:15:00 Test Item Value Reference Range Comments MAGNESIUM (BEAKER) (test yrvj=923) 1.9 mg/dL 1.6-2.6 BASIC METABOLIC [id number] 03:15:00 Test Item Value Reference Range Comments SODIUM (BEAKER) (test 139 meq/L 136-145 rvbf=761) POTASSIUM (BEAKER) (test 3.7 meq/L 3.5-5.1 gpny=255) CHLORIDE (BEAKER) (test 110 meq/L 98-107 slaz=374) CO2 (BEAKER) (test 19 meq/L 22-29 drso=500) BLOOD UREA NITROGEN 8 mg/dL 7-21 (BEAKER) (test yyba=213) CREATININE (BEAKER) (test 0.57 mg/dL 0.57-1.25 kpdi=081) GLUCOSE RANDOM (BEAKER) 92 mg/dL 70-105 (test hybe=681) CALCIUM (BEAKER) (test 9.2 mg/dL 8.4-10.2 oqbo=540) EGFR (BEAKER) (test 127 mL/min/1.73 sq m ESTIMATED GFR IS NOT myws=1129) ACCURATE CREATININE CLEARANCE IN PREDICTING GLOMERULAR FILTRATION RATE. ESTIMATED GFR IS NOT APPLICABLE FOR DIALYSIS PATIENTS. CREATINE KINASE (CK)2017-05-15 03:15:00 Test Item Value Reference Range Comments CREATINE KINASE TOTAL (BEAKER) (test iwys=542) 200 U/L 29-200 LACTIC ACID, VENOUS, WHOLE [id number] 03:09:00 Test Item Value Reference Range Comments LACTATE BLOOD VENOUS (2) (BEAKER) (test 0.6 mmol/L 0.5-2.2 glvs=5148) Effective 10/17/2015: Units/Reference Range ChangeNew: 0.5-2.2 mmol/L Previous: 5 -20 mg/dLPROTHROMBIN TIME/[id number] 03:07:00 Test Item Value Reference Range Comments PROTIME (BEAKER) (test fluc=848) 14.5 seconds 11.7-14.7 INR (BEAKER) (test gnsv=870) 1.1 <=5.9 RECOMMENDED COUMADIN/WARFARIN INR THERAPY RANGESSTANDARD DOSE: 2.0 - 3.0 Includes: PROPHYLAXIS forvenous thrombosis, systemic embolization; TREATMENT for venous thrombosis and/or pulmonary embolus.HIGH RISK: Target INR is 2.5-3.5 for patients with mechanical heart valves.CBC W/PLT COUNT & AUTO [id number] 03:00:00 Test Item Value Reference Range Comments WHITE BLOOD CELL COUNT (BEAKER) (test jmhu=682) 21.6 K/ L 3.5-10.5 RED BLOOD CELL COUNT (BEAKER) (test srge=071) 4.04 M/ L 3.93-5.22 HEMOGLOBIN (BEAKER) (test twlg=300) 9.3 GM/DL 11.2-15.7 HEMATOCRIT (BEAKER) (test xlof=122) 30.1 % 34.1-44.9 MEAN CORPUSCULAR VOLUME (BEAKER) (test nhqj=598) 74.5 fL 79.4-94.8 MEAN CORPUSCULAR HEMOGLOBIN (BEAKER) (test 23.0 pg 25.6-32.2 asdx=270) MEAN CORPUSCULAR HEMOGLOBIN CONC (BEAKER) (test 30.9 GM/DL 32.2-35.5 bkzn=865) RED CELL DISTRIBUTION WIDTH (BEAKER) (test 19.3 % 11.7-14.4 zkeq=923) PLATELET COUNT (BEAKER) (test vuio=192) 250 K/CU MM 150-450 MEAN PLATELET VOLUME (BEAKER) (test xyti=768) 10.3 fL 9.4-12.3 NUCLEATED RED BLOOD CELLS (BEAKER) (test 0 /100 WBC 0-0 gxxv=860) NEUTROPHILS RELATIVE PERCENT (BEAKER) (test 83 % tumj=758) LYMPHOCYTES RELATIVE PERCENT (BEAKER) (test 9 % jnyz=724) MONOCYTES RELATIVE PERCENT (BEAKER) (test 8 % smzb=370) EOSINOPHILS RELATIVE PERCENT (BEAKER) (test 0 % ersr=813) BASOPHILS RELATIVE PERCENT (BEAKER) (test 0 % mhwe=000) NEUTROPHILS ABSOLUTE COUNT (BEAKER) (test 17.85 K/ L 1.56-6.13 hofl=723) LYMPHOCYTES ABSOLUTE COUNT (BEAKER) (test 1.98 K/ L 1.18-3.74 cklk=412) MONOCYTES ABSOLUTE COUNT (BEAKER) (test 1.62 K/ L 0.24-0.36 rllb=642) EOSINOPHILS ABSOLUTE COUNT (BEAKER) (test 0.01 K/ L 0.04-0.36 bkbo=077) BASOPHILS ABSOLUTE COUNT (BEAKER) (test 0.04 K/ L 0.01-0.08 xgtj=949) IMMATURE GRANULOCYTES-RELATIVE PERCENT (BEAKER) 1 % 0-1 (test hmwq=2726) RAD, CHEST, 1 VIEW, NON [id number] 01:06:00Reason for exam:->possible infectionShould this be performed [...] MDReport Verified Date/Time: 2016 01:06:06 Reading Location: [address] Reading Room
[2019-07-03] MEDS ORDERED: LEVETIRACETAM 500 MG/5 ML VIAL IV ONE (21:45)
[2019-07-03] MEDS ORDERED: NA CHLORIDE 0.9% 0 ML ONE (21:46)
[2019-07-03] MEDS ORDERED: NA CHLORIDE 0.9% 1,000 ML ONE (21:46)
[2019-07-03] MEDS ORDERED: NA CHLORIDE 0.9% 100 ML IV ONE (21:52)
--- NOTE | 2019-07-03 22:10 | RAD REPORT ---
EXAM DESCRIPTION: RAD - Chest Single View - 07/03/2019 10:02 pm CLINICAL HISTORY: COUGH Chest pain. COMPARISON: Chest Single View dated 12/24/2018; Chest Single View dated 12/05/2016 FINDINGS: Portable technique limits examination quality. The lungs are grossly clear. The heart is normal in size. No displaced fractures. IMPRESSION: No acute intrathoracic process suspected.
[2019-07-03 22:26] LABS: Absolute Lymphocytes (CBC) 1.2 K/uL (0.7-4.9); Basophils % 0.7 % (0-1.3); Hematocrit 30.4 % (36.0-45.0); Lymphocytes % 14.6 % (15.3-44.8); MPV 8.2 fL (7.6-11.3); RBC Red Blood Cell Count 4.25 M/uL (3.86-4.86)
[2019-07-03 22:30] LABS: Protime INR 1.11
[2019-07-03 22:43] LABS: ALT/SGPT 22 U/L (12-78); AST/SGOT 14 U/L (15-37); Albumin 3.7 g/dL (3.4-5.0); Alkaline Phosphatase 73 U/L (45-117); BUN Blood Urea Nitrogen 9 mg/dL (7-18); Bicarbonate 24 mmol/L (21-32); Bilirubin Direct 0.1 mg/dL (0-0.2); Bilirubin Total 0.4 mg/dL (0.2-1.0); Glucose Level 88 mg/dL (74-106); Potassium 3.6 mmol/L (3.5-5.1); Protein, Total 7.1 g/dL (6.4-8.2); Sodium Level 141 mmol/L (136-145); Troponin (Emerg Dept Use Only) < 0.02 ng/mL (0.0-0.045)
[2019-07-03 22:50] LABS: NT PRO-BNP 56 pg/mL (<125)
[2019-07-03 23:04] LABS: Urine Blood 3+ (NEG); Urine Glucose NEGATIVE (NEG); Urine Protein TRACE (NEG); Urine Specific Gravity >1.030 (1.005-1.030); Urine pH 5.5 (5.0-7.0)
[2019-07-03 23:20] LABS: Barbiturates NEGATIVE (NEGATIVE); Benzodiazepines NEGATIVE (NEGATIVE); Cocaine NEGATIVE (NEGATIVE); METHAMPHETAM NEGATIVE (NEGATIVE); Methadone NEGATIVE (NEGATIVE); Opiates NEGATIVE (NEGATIVE); Phencyclidine NEGATIVE (NEGATIVE); THC Cannibis NEGATIVE (NEGATIVE)
--- NOTE | 2019-07-03 23:23 | ER ---
Nurse's Notes [facility] Name: Heather Hope Age: 28 yrs Sex: Female : 1990 Arrival Date: 07/03/2019 Time: 20:49 Bed 6 Private MD: Diagnosis: Epilepsy and recurrent seizures Presentation: 07/03 20:51 Presenting complaint: EMS states: Pt was found in the drive way on her side un jb4 responsive. She has reportedly had 2 seizures in total. She was post-ictal but was aroused by sternal rubs. Pt was A\T\ O x1 while loading her into the ambulance, began to have seizure like activity, was given 2mg of Ativan. After Ativan was given was able to give her name and date of birht. Transition of care: patient was not received from another setting of care. Onset of symptoms was July 03, 2019. Risk Assessment: Do you want to hurt yourself or someone else? Patient reports no desire to harm self or others. Initial Sepsis Screen: Does the patient meet any 2 criteria? RR > 20 per min. HR > 90 bpm. Yes Does the patient have a suspected source of infection? No. Patient's initial sepsis screen is negative. Care prior to arrival: Medication(s) given: Ativan 2mg IV initiated. 20 GA, in the right hand. 20:51 Method Of Arrival: EMS: [facility] 20:51 Acuity: DARLYN 2 jb4 Historical: - Allergies: 21:01 No Known Allergies; jb4 - Home Meds: 21:01 Keppra 750 mg Oral tab 2 tabs 2 times per day [Active]; Prozac Oral [Active]; jb4 - PMHx: 21:01 Seizures; jb4 - PSHx: 21:01 None; jb4 - Immunization history:: Adult Immunizations unknown. - Social history:: Smoking status: unknown. - Ebola Screening: : No symptoms or risks identified at this time. - Family history:: not pertinent. Screenin:01 Abuse screen: Denies threats or abuse. Nutritional screening: No deficits noted. jb4 Tuberculosis screening: No symptoms or risk factors identified. Fall Risk IV access (20 points). Mental Status- Overestimates/Forgets Limitations (15 pts.). Total Green Fall Scale indicates Low Risk Score (25-44 pts). Fall prevention measures have been instituted. Side Rails Up X 2 Placed close to Nursing Station Frequent Obs/Assesments occuring Family Present and informed to notify staff if they need to leave bedside As available Patient and Family Educated on Fall Prevention Program and strategies. Assessment: 21:01 General: Appears in no apparent distress. comfortable, Behavior is calm, cooperative, jb4 appropriate for age. Pain: Denies pain. Neuro: Level of Consciousness is awake, obeys commands, lethargic, Oriented to person, place, time, situation. Cardiovascular: Patient's skin is warm and dry. Respiratory: Airway is patent Respiratory effort is even, unlabored, Respiratory pattern is regular, symmetrical. GI: No signs and/or symptoms were reported involving the gastrointestinal system. : No signs and/or symptoms were reported regarding the genitourinary system. EENT: No signs and/or symptoms were reported regarding the EENT system. Derm: Skin is intact, Skin is pink, warm \T\ dry. Musculoskeletal: Circulation, motion, and sensation intact. Range of motion: intact in all extremities. 22:30 Reassessment: Patient appears in no apparent distress at this time. Patient and/or jb4 family updated on plan of care and expected duration. Pain level reassessed. Patient is alert, oriented x 3, equal unlabored respirations, skin warm/dry/pink. 23:28 Reassessment: Patient appears in no apparent distress at this time. Patient and/or jb4 family updated on plan of care and expected duration. Pain level reassessed. Patient is alert, oriented x 3, equal unlabored respirations, skin warm/dry/pink. Called pt's mother, informed her of D/c status. D/c pending arrival of pt's mother. Vital Signs: 21:01 BP 138 / 103; Pulse 123; Resp 23; Temp 98.3(A); Pulse Ox 100% on R/A; Weight 68.04 kg jb4 (R); Height 5 ft. 7 in. (170.18 cm) (R); Pain 0/10; 22:00 BP 132 / 76; Pulse 109; Resp 16; Pulse Ox 98% on R/A; jb4 23:00 BP 123 / 87; Pulse 99; Resp 18; Pulse Ox 100% on R/A; jb4 21:01 Body Mass Index 23.49 (68.04 kg, 170.18 cm) jb4 ED Course: 20:49 Patient arrived in ED. rv 20:49 Steve Lawrence MD is Attending Physician. [facility] 20:54 Triage completed. jb4 21:01 Arm band placed on right wrist. jb4 21:01 Patient has correct armband on for positive identification. Bed in low position. Call jb4 light in reach. Side rails up X 1. purse maker on. Pulse ox on. NIBP on. 21:01 Maintain EMS IV. Dressing intact. Site clean \T\ dry. Gauge \T\ site: 20g Rhand. IV is michael 4 patent, is intact, with fluids infusing freely. 21:26 Don Ag, RN is Primary Nurse. jb4 22:03 XRAY Chest (1 view) In Process Unspecified. EDMS 22:45 CT Head Brain wo Cont In Process Unspecified. EDMS 23:23 Srinivas German MD is Referral Physician. [facility] 23:50 No provider procedures requiring assistance completed. IV discontinued, intact, jb4 bleeding controlled, No redness/swelling at site. Pressure dressing applied. Administered Medications: 21:54 Drug: NS 0.9% 1000 ml Route: IV; Rate: 1 bolus; Site: right hand; jb4 23:00 Follow up: Response: No adverse reaction; IV Status: Completed infusion; IV Intake: jb4 1000ml 21:54 Drug: Keppra 1000 mg Route: IV; Rate: per protocol; Site: right hand; jb4 22:09 Follow up: Response: No adverse reaction; IV Status: Completed infusion jb4 Intake: 23:00 IV: 1000ml; Total: 1000ml. jb4 Outcome: 23:23 Discharge ordered by . [facility] 23:50 Discharged to home via wheelchair, with family. jb4 23:50 Condition: stable 23:50 Discharge instructions given to patient, family, Instructed on discharge instructions, follow up and referral plans. medication usage, Demonstrated understanding of instructions, follow-up care, medications, Prescriptions given X 1. 23:51 Patient left the ED. mt Signatures: Dispatcher [employer] EDME Steve Lawrence MD MD cha Bryson, James, RN RN [facility] Rita Heath mt, Ronaldo, RN RN rv Corrections: (The following items were deleted from the chart) 22:43 21:01 Neuro: Level of Consciousness is awake, alert, obeys commands, Oriented to jb4 person, place, time, situation, jb4
--- NOTE | 2019-07-03 23:24 | EDPHYS ---
Physician Documentation [facility] Name: Heather Hope Age: 28 yrs Sex: Female : 1990 Arrival Date: 07/03/2019 Time: 20:49 Bed 6 Private MD: Steve Botello HPI: 07/03 21:40 This 28 yrs old Female presents to ER via EMS with complaints of two seizures issac and not acting right. 21:40 The patient presents with a history of multiple seizures, a total of 2. Character of issac seizure(s): Loss of consciousness: it is not known if the patient experienced loss of consciousness, Motor activity: generalized, Incontinence: none, Apnea: the patient did not experience apnea, Circulation: the patient did not experience evidence of pulse disturbance. Seizure onset: just prior to arrival. Context: the seizure(s) was witnessed, unknown. Seizure Hx: Last seizure: The patient's last seizure was approximately 1 week(s) ago. Associated injury: The patient did not suffer any apparent associated injury. The patient has experienced similar episodes in the past, multiple times. Historical: - Allergies: 21:01 No Known Allergies; jb4 - Home Meds: 21:01 Keppra 750 mg Oral tab 2 tabs 2 times per day [Active]; Prozac Oral [Active]; jb4 - PMHx: 21:01 Seizures; jb4 - PSHx: 21:01 None; jb4 - Immunization history:: Adult Immunizations unknown. - Social history:: Smoking status: unknown. - Ebola Screening: : No symptoms or risks identified at this time. - Family history:: not pertinent. ROS: 21:40 Constitutional: Negative for fever, chills, and weight loss, Eyes: Negative for injury, issac pain, redness, and discharge, ENT: Negative for injury, pain, and discharge, Neck: Negative for injury, pain, and swelling, Cardiovascular: Negative for chest pain, palpitations, and edema, Respiratory: Negative for shortness of breath, cough, wheezing, and pleuritic chest pain, Abdomen/GI: Negative for abdominal pain, nausea, vomiting, diarrhea, and constipation, Back: Negative for injury and pain, : Negative for injury, bleeding, discharge, and swelling, MS/Extremity: Negative for injury and deformity, Skin: Negative for injury, rash, and discoloration, Psych: Negative for depression, anxiety, suicide ideation, homicidal ideation, and hallucinations, Allergy/Immunology: Negative for hives, rash, and allergies, Endocrine: Negative for neck swelling, polydipsia, polyuria, polyphagia, and marked weight changes, Hematologic/Lymphatic: Negative for swollen nodes, abnormal bleeding, and unusual bruising. 21:40 Neuro: Positive for altered mental status, seizure activity, weakness. Exam: 21:40 Constitutional: This is a well developed, well nourished patient who is awake, alert, issac and in no acute distress. Head/Face: Normocephalic, atraumatic. Eyes: Pupils equal round and reactive to light, extra-ocular motions intact. Lids and lashes normal. Conjunctiva and sclera are non-icteric and not injected. Cornea within normal limits. Periorbital areas with no swelling, redness, or edema. ENT: Nares patent. No nasal discharge, no septal abnormalities noted. Tympanic membranes are normal and external auditory canals are clear. Oropharynx with no redness, swelling, or masses, exudates, or evidence of obstruction, uvula midline. Mucous membranes moist. Neck: Trachea midline, no thyromegaly or masses palpated, and no cervical lymphadenopathy. Supple, full range of motion without nuchal rigidity, or vertebral point tenderness. No Meningismus. Chest/axilla: Normal chest wall appearance and motion. Nontender with no deformity. No lesions are appreciated. Respiratory: Lungs have equal breath sounds bilaterally, clear to auscultation and percussion. No rales, rhonchi or wheezes noted. No increased work of breathing, no retractions or nasal flaring. Abdomen/GI: Soft, non-tender, with normal bowel sounds. No distension or tympany. No guarding or rebound. No evidence of tenderness throughout. Back: No spinal tenderness. No costovertebral tenderness. Full range of motion. Female : Normal external genitalia. Skin: Warm, dry with normal turgor. Normal color with no rashes, no lesions, and no evidence of cellulitis. MS/ Extremity: Pulses equal, no cyanosis. Neurovascular intact. Full, normal range of motion. Psych: Awake, alert, with orientation to person, place and time. Behavior, mood, and affect are within normal limits. 21:40 Cardiovascular: Rate: tachycardic, Rhythm: regular, Pulses: Pulses are 4+ in bilateral radial, brachial, femoral, popliteal, posterior tibial and and dorsalis pedis arteries.. Heart sounds: normal, Edema: is not appreciated, JVD: is not appreciated. 21:40 Neuro: Orientation: to person, place, time, situation, Mentation: slow to respond, Memory: unable to test, Cranial nerves: grossly normal, is grossly normal based on the patient's age, Cerebellar function: unable to test, Motor: moves all fours, strength is normal, Sensation: no obvious gross deficits, appropriate no acute changes, Gait: not tested. seizure activity, is not displayed by the patient. Vital Signs: 21:01 BP 138 / 103; Pulse 123; Resp 23; Temp 98.3(A); Pulse Ox 100% on R/A; Weight 68.04 kg jb4 (R); Height 5 ft. 7 in. (170.18 cm) (R); Pain 0/10; 22:00 BP 132 / 76; Pulse 109; Resp 16; Pulse Ox 98% on R/A; jb4 23:00 BP 123 / 87; Pulse 99; Resp 18; Pulse Ox 100% on R/A; jb4 21:01 Body Mass Index 23.49 (68.04 kg, 170.18 cm) jb4 MDM: 20:49 Patient medically screened. [facility] 21:43 Data reviewed: vital signs, nurses notes, lab test result(s), EKG, radiologic studies, [facility] CT scan, plain films. 07/03 21:38 Order name: Basic Metabolic Panel; Complete Time: 23:19 [facility] 07/03 21:38 Order name: CBC with Diff; Complete Time: 22:34 [facility] 07/03 21:38 Order name: LFT's; Complete Time: 23:19 [facility] 07/03 21:38 Order name: Magnesium; Complete Time: 23:19 [facility] 07/03 21:38 Order name: NT PRO-BNP; Complete Time: 23:19 [facility] 07/03 21:38 Order name: PT-INR; Complete Time: 23:19 [facility] 07/03 21:38 Order name: Troponin (emerg Dept Use Only); Complete Time: 23:19 [facility] 07/03 21:38 Order name: Acetaminophen; Complete Time: 23:19 [facility] 07/03 21:38 Order name: ETOH Level; Complete Time: 23:19 [facility] 07/03 21:38 Order name: Salicylate; Complete Time: 23:19 [facility] 07/03 21:38 Order name: Urine Drug Screen; Complete Time: 23:23 [facility] 07/03 22:52 Order name: Urine Dipstick--Ancillary (enter results); Complete Time: 23:19 id 07/03 22:52 Order name: Urine --Ancillary (enter results); Complete Time: 23:19 id 07/03 21:38 Order name: XRAY Chest (1 view); Complete Time: 22:34 [facility] 07/03 21:38 Order name: EKG; Complete Time: 21:39 [facility] 07/03 21:38 Order name: Cardiac monitoring; Complete Time: 21:39 [facility] 07/03 21:38 Order name: EKG - Nurse/Tech; Complete Time: 21:39 [facility] 07/03 21:38 Order name: IV Saline Lock; Complete Time: 21:39 [facility] 07/03 21:38 Order name: Labs collected and sent; Complete Time: 22:43 [facility] 07/03 21:38 Order name: O2 Per Protocol; Complete Time: 21:39 [facility] 07/03 21:38 Order name: O2 Sat Monitoring; Complete Time: 21:39 [facility] 07/03 21:38 Order name: Urine Dipstick-Ancillary (obtain specimen); Complete Time: 22:43 [facility] 07/03 21:38 Order name: CT Head Brain wo Cont [facility] 07/03 21:38 Order name: Seizure Precautions; Complete Time: 21:40 [facility] Administered Medications: 21:54 Drug: NS 0.9% 1000 ml Route: IV; Rate: 1 bolus; Site: right hand; jb4 23:00 Follow up: Response: No adverse reaction; IV Status: Completed infusion; IV Intake: jb4 1000ml 21:54 Drug: Keppra 1000 mg Route: IV; Rate: per protocol; Site: right hand; jb4 22:09 Follow up: Response: No adverse reaction; IV Status: Completed infusion jb4 Disposition: 07/03/19 23:23 Discharged to Home. Impression: Epilepsy and recurrent seizures. - Condition is Stable. - Discharge Instructions: Seizure, Adult, Seizure, Adult, [id number]. - Prescriptions for Keppra 500 mg Oral Tablet - take 2 tablet by ORAL route every 12 hours; 60 tablet. - Medication Reconciliation Form, Thank You Letter, Antibiotic Education, Prescription Opioid Use form. - Follow up: Private Physician; When: 2 - 3 days; Reason: Recheck today's complaints, Continuance of care, Re-evaluation by your physician. Follow up: Srinivas German; When: 2 - 3 days; Reason: Recheck today's complaints, Continuance of care, Re-evaluation by your physician. - Problem is new. - Symptoms have improved. Signatures: Dispatcher [employer] [facility] Steve Lawrence MD MD cha Bryson, James, RN RN jb4 Rita Heath id Corrections: (The following items were deleted from the chart) 22:22 21:39 PTT, ACTIVATED+[email or web address] ordered. [facility] 23:51 23:23 07/03/2019 23:23 Discharged to Home. Impression: Epilepsy and recurrent seizures. mt Condition is Stable. Discharge Instructions: Seizure, Adult, Seizure, Adult, [id number]. Prescriptions for Keppra 500 mg Oral Tablet - take 2 tablet by ORAL route every 12 hours; 60 tablet. and Forms are Medication Reconciliation Form, Thank You Letter, Antibiotic Education, Prescription Opioid Use. Follow up: Private Physician; When: 2 - 3 days; Reason: Recheck today's complaints, Continuance of care, Re-evaluation by your physician. Follow up: Srinivas German; When: 2 - 3 days; Reason: Recheck today's complaints, Continuance of care, Re-evaluation by your physician. Problem is new. Symptoms have improved. issac
[2019-07-03 23:55] VITALS: TEMP 98.3
[2019-07-03 23:58] VITALS: BP 123/87; O2SAT 100
--- NOTE | 2019-07-04 10:28 | EKG ---
Test Date: 2019-07-03 Test Time: 20:57:11 Safety Inspector: JUSTIN MEASUREMENT RESULTS: Intervals: Rate: 109 NC: 156 QRSD: 82 QT: 336 QTc: 452 Elmer: P: 43 NC: 156 QRS: 8 T: 8 INTERPRETIVE STATEMENTS: Sinus tachycardia Otherwise normal ECG Compared to ECG 02/02/2019 16:30:39 Myocardial infarct finding no longer present Electronically Signed On 07-04-19 10:27:07 SENIOR DIRECTOR INSIGHT by Gerard Edwards
--- NOTE | 2019-07-04 12:42 | RAD REPORT ---
EXAM DESCRIPTION: CT Head Brain Wo Cont CLINICAL HISTORY: SEIZURE TECHNIQUE: Contiguous axial CT images obtained through the brain without IV contrast. Coronal and sa gittal reformatted images were provided. This exam was performed according to our departmental dose-optimization program, which includes autom ated exposure control, adjustment of the mA and/or kV according to patient size and/or use of iterati ve reconstruction technique. COMPARISON: 12/25/2018 FINDINGS: Brain: No significant white matter changes. No focal mass effect. Brantley-white matter differ entiation is within normal limits. No hemorrhage. Ventricles: No ventriculomegaly or midline shift. Extra-axial spaces: No extra-axial collection or hemorrhage. Paranasal sinuses and mastoid air cells: Well-aerated Vessels: Unremarkable Bones: Unremarkable Soft tissues: Unremarkable IMPRESSION: No acute intracranial or extra-axial abnormality. Electronically signed by: Nava Chapman MD 07/03/2019 10:57 PM MANAGER MONEY Due to temporary technical issues with the PACS/Fluency reporting system, reports are being signed by the in house radiologist as a courtesy to ensure prompt reporting. The interpreting radiologist is f ully responsible for the content of the report.
== END 2019-07-03 23:51 | disposition home or self-care (01) ==
LOC: ER 20:46
DX: G40.909 Epilepsy, unspecified, not intractable, without status epilepticus (principal)
CPT/HCPCS: 96361; 93005; 85025; 80048; 36415; 80320; 83735; 80329 ×2; 81025; 85610; 80076; 80307 ×8; 81003; 84484; 83880; 70450; 71045; 96374; 99284; J1953; J7030

== ENCOUNTER 2019-08-09 16:22 | Emergency (ER) | payer OTHER ==
--- OUTSIDE RECORDS SUMMARY | 2019-08-09 16:32 | XMS REPORT ---
:1990 [facility] [address] [place] [address] Care Team Providers Name Role Phone MILES [...] Dt (test code=Expiration Dt) 04-14-2020 Thyroid Stimulating [id number] 07:59:52 Test Item Value Reference Range Comments TSH (test code=TSH) 0.717 mIU/mL 0.270-4.200 Lipid [id number] 07:52:46 Test Item Value Reference Range Comments Cholesterol Total (test 141 mg/dL 0-200 RISK OF HEART DISEASEPublished code=Cholesterol Total) by [place] [employer] Analyte Optimal Borderline Increased RiskCHOL [...] is LDL/HDL Ratio=LDL Calc/HDL Chol Urine Drug [id number] 15:27:40 Test Item Value Reference Range Comments [...] separate confirmatory test if desired. Comprehensive Metabolic [id number] 15:15:20 Test Item Value Reference Range Comments [...] (test code=A/G Ratio) 1.9 ratio Comprehensive Metabolic [id number] 15:15:20 Test Item Value Reference Range Comments [...] is not provided, and the patient is -Belgian, multiply by 1.212. If sex is not [...] by the National Kidney Foundation, http://nkdep.nih.gov Alcohol [id number] 15:15:20 Test Item Value Reference Range Comments Ethanol Level (test <0.00 g/dL 0.00-0.01 Intoxicated 0.080 g/dL or more code=Ethanol Level) Ethanol Inst (test <0 code=Ethanol Inst) Comprehensive Metabolic [id number] 15:15:20 Test Item Value Reference Range Comments [...] is not provided, and the patient is -Belgian, multiply by 1.212. If sex is not [...] is not provided, and the patient is -Belgian, multiply by 1.212. If sex is not [...] by the National Kidney Foundation, http://nkdep.nih.gov Urinalysis [id number] 15:11:20 Test Item Value Reference Range Comments UA WBC (test code=UA WBC) 6-10 0-5 UA RBC (test code=UA RBC) 0-5 0-5 UA Bacteria (test code=UA Bacteria) Moderate UA Squam Epithelial (test code=UA Squam Epithelial) TNTC UA Mucous (test code=UA Mucous) Few Urinalysis with Microscopic if [id number] 14:42:58 Test Item Value Reference Range Comments [...] Micro Ind?) GL_SJM_UA_MICRO_IND Complete Blood Count with [id number] 14:37:26 Test Item Value Reference Range Comments [...] XN) IPF (test code=IPF) 0 % Automated [id number] 14:37:26 Test Item Value Reference Range Comments Neutro Auto (test code=Neutro Auto) 65.8 % 36.0-70.0 Lymph Auto (test code=Lymph Auto) 25.5 % 12.0-44.0 Yazoo Auto (test code=Yazoo Auto) 7.3 % 0.0-11.0 Eos, Auto (test code=Eos, Auto) 0.7 % 0.0-7.0 Basophil Auto (test code=Basophil Auto) 0.5 % 0.0-2.0 Neutro Absolute (test code=Neutro Absolute) 6.0 x10 1.6-7.4 Lymph Absolute (test code=Lymph Absolute) 2.34 x10 .50-4.60 Yazoo Absolute (test code=Yazoo Absolute) .67 x10 .00-1.20 Eos Absolute (test code=Eos Absolute) 0.06 x10 0.00-0.74 Baso Absolute (test code=Baso Absolute) 0.05 x10 0.00-0.21 IG [id number] 14:37:26 Test Item Value Reference Range Comments IG (test code=IG) 0.2 % 0.0-5.0 IG Abs (test code=IG Abs) 0 x10 HCG Qualitative [id number] 14:34:08 Test Item Value Reference Range Comments hCG Ur (test code=hCG Ur) Negative If the result is "Negative" in patients suspected to be , recommend retest with a sample obtained 48 to 72 hours later, or by ordering a quantitative assay. If the result is "Borderline" testing should be repeated in 48 to 72 hours. Lot # (test code=Lot #) [id number] Expiration Dt (test 2020-03-14 code=Expiration Dt) Neg Control (test code=Neg Negative Control) Pos Control (test code=Pos Positive Control) Internal QC (test Acceptable code=Internal QC) DRUGS OF ABUSE SCREEN [id number] 17:11:00 Test Item Value Reference Range Comments [...] Methadone cut-off code=METHAURN) concentration: 300 ng/mL URINALYSIS [id number] 17:08:00 Test Item Value Reference Range Comments [...] UA BACTERIA (test code=BACU) MOD NONE URINALYSIS [id number] 17:00:00 Test Item Value Reference Range Comments [...] UA BACTERIA (test code=BACU) NONE HCG SERUM [id number] 16:52:00 Test Item Value Reference Range Comments HCG SERUM QUAL (test code=HCGQL) NEGATIVE NEGATIVE - CT HEAD/BRAIN W/O [id number] 16:51:00 FAX: Theresa Fields MD [place]: St: REG Name: SAHRA NETTLES [facility] : 1990 Age/S: 28/F [address] [facility] Unit: [id number] Loc: [place], [place]: [place] [address] Acct: [id number] Dis Date: Status: REG ER PHONE #: [phone] Exam Date: 02/23/2019 1642 FAX #: [phone] Reason: SEIZURE EXAMS: CPT CODE: [id number] CT HEAD/BRAIN W/O CONT 18893 Dictation location: U19. CT HEAD WITHOUT CONTRAST. [...] No evidence of acute intracranial abnormality. at 6501 Reported and signed by: Mark Morrison M.D. CC: Theresa Fields MD Technologist: SAHRA DICKSON Trnscrd Dt/Tm: 02/23/2019 (9507) [email or web address] Orig Print D/T: S: 02/23/2019 (1654 PAGE 1 Signed ReportBASIC METABOLIC [id number] 16:31:00 Test Item Value Reference Range Comments [...] (test code=CA) 8.8 mg/dl 8.0-10.5 BASIC METABOLIC [id number] 16:26:00 Test Item Value Reference Range Comments [...] CALCIUM (test code=CA) mg/dl 8.0-10.5 CBC W/AUTO [id number] 16:15:00 Test Item Value Reference Range Comments [...] (test 8 MG/DL 3-60 code=VLDL) RAPID PLASMA [id number] 10:31:00 Test Item Value Reference Range Comments RAPID PLASMA REAGIN (test code=RPR) Nonreactive Nonreactive GLYCOSYLATED HEMOGLOBIN (HA1C)2018-12-07 10:05:00 Test Item Value Reference Range Comments GLYCOSYLATED HEMOGLOBIN (HA1C) (test 5.8 % TOT HB 4.5-6.2 code=GLYHGB) [id number] 15:31:00 Test Item Value Reference Range Comments ACETAMINOPHEN (test < 1 MCG/ML 10-30 Acetaminophen is possibly code=ACET) toxic at levels of: 1. more than 150 MCG/ML 4 hours post ingestion. 2. more than 50 MCG/ML 12 hours post ingestion. [id number] 15:31:00 Test Item Value Reference Range Comments SALICYLATE (test code=BOSSMAN) < 3 MG/DL 0-20 Reference Range: Analgesic.................. < 10 mg/dl Therapeutic................ 15-20 mg/dl Mild Toxicity.............. > 30 mg/dl Severe Toxicity............ > 60 mg/dl UA RFLX [id number] 14:18:00 Test Item Value Reference Range Comments [...] SPECIMEN DESCRIPTION (test Clean Catch code=UASPEC) UA [id number] 14:18:00 Test Item Value Reference Range Comments UA WBC (test code=WBCU) < 10 #/hpf <10 UA RBC (test code=RBCU) 0-2 #/hpf NONE SEEN UA BACTERIA (test code=BACU) RARE #/hpf NONE SEEN UA SQUAMOUS CELLS (test code=SQU) 0 - 20 #/lpf <100 UA MUCUS (test code=MUCU) 1+ #/lpf NONE SEEN BASIC METABOLIC [id number] 14:16:00 Test Item Value Reference Range Comments [...] (test code=CA) 9.4 MG/DL 8.7-10.5 HEPATIC FUNCTION [id number] 14:16:00 Test Item Value Reference Range Comments [...] PHOSPHATASE TOTAL 74 Units/L 50-136 (test code=ALKP) [id number] 14:16:00 Test Item Value Reference Range Comments CK (test code=CKT) 87 Units/L 26-192 [id number] 14:16:00 Test Item Value Reference Range Comments ALCOHOL (test code=ALC) < 3 MG/DL 0-10 0 - 10: Should be interpreted as NEGATIVE. 11 - 50: None to mild euphoria. 51 - 100: Mild influence on vision and dark adaptation. > 80: Legal intoxication; Depression of PRIMER PRESS OPERATOR; Increasing degree of poisoning. > 400: Fatalities reported. Results are for medical purposes only and not forlegal or employment evaluative purposes. BASIC METABOLIC [id number] 14:09:00 Test Item Value Reference Range Comments [...] (test code=CA) 9.4 MG/DL 8.7-10.5 HEPATIC FUNCTION [id number] 14:09:00 Test Item Value Reference Range Comments TOTAL PROTEIN (test code=PROT) G/DL 6.4-8.2 ALBUMIN (test code=ALB) G/DL 3.4-5.0 GLOBULIN (test code=GLOB) G/DL 1.5-3.8 ALBUMIN/GLOBULIN RATIO (test code=A/G) 1.1-2.2 BILIRUBIN TOTAL (test code=BILT) MG/DL 0.0-1.0 BILIRUBIN DIRECT (test code=BILD) MG/DL 0.0-0.3 SGOT/AST (test code=AST) Units/L 15-37 SGPT/ALT (test code=ALT) Units/L 30-65 ALKALINE PHOSPHATASE TOTAL (test code=ALKP) Units/L 50-136 [id number] 14:09:00 Test Item Value Reference Range Comments CK (test code=CKT) Units/L 26-192 [id number] 14:09:00 Test Item Value Reference Range Comments ALCOHOL (test code=ALC) MG/DL 0-10 LACTIC ACID [id number] 13:50:00 Test Item Value Reference Range Comments LACTIC ACID POC (test 0.97 MMOL/L 0.90-1.70 Performed by certified code=LACTP) cement grinding mill operator at [facility] [id number] 13:48:00 Test Item Value Reference Range Comments GLUBED (test code=GLUBED) 88 MG/DL 65-99 Performed by certified cement grinding mill operator at [facility] DRUG OF ABUSE SCREEN [id number] 13:43:00 Test Item Value Reference Range Comments [...] confirmed by alternate methods (i.e., GC/MS) at [facility]. Results of screen may not be usedin criminal justice, job performance or professionalcredential review, or custody issues. Negative [place] Level ng/ml ----- Cocaine 300 Methamphetamine (Ecstacy) 500 Cannabinoids (THC) 50 Amphetamine 1000 Barbiturates 200 Benzodiazepines 200 Opiates 300 Phencyclidine (PCP) 25 UR HCG [id number] 13:39:00 Test Item Value Reference Range Comments UR HCG QUAL (test NEGATIVE NEGATIVE False negatives may occur when code=HCGQLU) levels of hCGare below 20 mIU/ml. When is still suspected, a new specimenshould be obtained after 48 hours and re-tested.If waiting 48 hours is not medically advisable,the test result should be confirmed using aquantitative hCG assay. UA RFLX [id number] 13:38:00 Test Item Value Reference Range Comments [...] SPECIMEN DESCRIPTION (test Clean Catch code=UASPEC) UA [id number] 13:38:00 Test Item Value Reference Range Comments UA WBC (test code=WBCU) #/hpf <10 UA RBC (test code=RBCU) #/hpf NONE SEEN UA SQUAMOUS CELLS (test code=SQU) #/lpf <100 UA RFLX [id number] 13:38:00 Test Item Value Reference Range Comments [...] SPECIMEN DESCRIPTION (test Clean Catch code=UASPEC) UA [id number] 13:38:00 Test Item Value Reference Range Comments UA WBC (test code=WBCU) #/hpf <10 UA RBC (test code=RBCU) #/hpf NONE SEEN UA SQUAMOUS CELLS (test code=SQU) #/lpf <100 CBC W/AUTO [id number] 13:26:00 Test Item Value Reference Range Comments [...] # (test code=BA#) 0.05 x10 3/uL 0.0-0.2 [id number] 19:07:00 Test Item Value Reference Range Comments LEVETIRACETAM (test 28.7 ug/mL 10.0-40.0 This test was developed and its code=LEVTAM) performance characteristicsdetermined by [facility]. It has not been cleared orapproved by the Food and Drug Administration.Performed At: [address] [id number] Dias MD Ph:[phone] BASIC METABOLIC [id number] 04:58:00 Test Item Value Reference Range Comments [...] 0.60-1.00 CALCIUM (test code=CA) 8.9 MG/DL 8.7-10.5 [id number] 04:58:00 Test Item Value Reference Range Comments MAGNESIUM (test code=MAG) 1.9 MG/DL 1.8-2.4 CBC W/AUTO [id number] 04:08:00 Test Item Value Reference Range Comments [...] X10 3/uL 0.0-0.2 - MRI BRAIN W/O [id number] 13:51:00 Patient Name: SAHRA NETTLES Unit No: [id number] EXAMS: CPT CODE: [id number] MRI BRAIN W/O CONTRAST 58945 Reason: sz INDICATION: Seizure COMPARISON: CT brain, [...] Gutierrez MD Technologist: Andre FRANCIS Trscrpt Dt/ (9203)AngeliqueDW6 Orig Print D/T: S: 09/17/2018 (8409) [facility] CntNAME: SAHRA NETTLES NOVEM[address] PHYS: [place] [address] : 1990 AGE: 27 SEX: F LOC: D.D313 1 PHONE #: [phone] EXAM DATE: 09/17/2018 STATUS: ADM IN FAX #: RAD NO: DC Dt: PAGE 1 Signed [id number] 07:25:00 Test Item Value Reference Range Comments PROLACTIN (test code=PROLAC) 24.6 ng/mL 4.8-23.3 Performed At: [facility] [address] [id number] Sb Man MD Ph:[phone] UA RFLX MICROSCOPIC [id number] 19:02:00 Test Item Value Reference Range Comments [...] met URINE SOURCE: Clean CatchUA RFLX MICROSCOPIC [id number] 18:56:00 Test Item Value Reference Range Comments [...] CULTURE NEEDED? (test code=UACULT) URINE SOURCE: Clean [id number] 15:56:00 Test Item Value Reference Range Comments CK (test code=CKT) 34 Units/L 26-192 BASIC METABOLIC [id number] 12:57:00 Test Item Value Reference Range Comments [...] 0.60-1.00 CALCIUM (test code=CA) 8.6 MG/DL 8.7-10.5 [id number] 12:57:00 Test Item Value Reference Range Comments CK (test code=CKT) 32 Units/L 26-192 CBC W/AUTO [id number] 12:33:00 Test Item Value Reference Range Comments [...] 0.0 X10 3/uL 0.0-0.2 TOTAL IRON BINDING [id number] 05:50:00 Test Item Value Reference Range Comments SERUM IRON (test code=IRON) 17 MCG/DL 50-170 TOTAL IRON BINDING CAPACITY (test code=TIBC) 363 MCG/DL 280-400 IRON SATURATION (test code=FESAT) 5 % 15-50 [id number] 05:50:00 Test Item Value Reference Range Comments FERRITIN (test code=LULI) 11 NG/ML 3-105 HEPATIC FUNCTION [id number] 05:32:00 Test Item Value Reference Range Comments [...] 50-136 (test code=ALKP) - CT HEAD/BRAIN W/O [id number] 20:19:00 Patient Name: SAHRA NETTLES Unit No: [id number] EXAMS: CPT CODE: [id number] CT HEAD/BRAIN W/O CONT 18870 Reason: seizure TECHNIQUE: Contiguous 5 mm images [...] Print D/T: S: 07/2018 (2021) CTDI: DLP: [facility] NAME: SAMAN[place]A [place] [id number] PHYS: NGA. - Keanu Váz[place] [address] : 1990 AGE: 27 SEX: F LOC: D.NER PHONE#: [phone] EXAM DATE: 07/2018 STATUS: REG ER FAX #: RAD NO: DC Dt: PAGE 1 Signed Report- XR CHEST 1 [id number] 20:18:00 [facility] Unit No: [id number] EXAMS: CPT CODE: [id number] XR CHEST 1 V 17926 Reason: screen for pneumonia FINDINGS: Single view ofthe chest shows normal heart size and pulmonary vasculature. The lungs are clear bilaterally. There is no focal infiltrate, pleural effusion or pneumothorax. IMPRESSION: No acute cardiopulmonary findings at 2018 Reported and signed by : Lashell Jimenez MD CC: Keanu Vázquez MD; Cristiane Heath Technologist: Edel Cade CT Trscrpt Dt/ (2017)Tristan Orig PrintD/T: S: 09/14/2018 (2020) [facility] PHYS: NGA. - Keanu Váz[place] [address] : 1990 AGE: 27 SEX: F LOC: MATT PHONE #: [phone] EXAM DATE: 09/14/2018 STATUS: REG ER FAX #: RAD NO: DC Dt: PAGE 1 Signed ReportHCG SERUM [id number] 20:04:00 Test Item Value Reference Range Comments HCG SERUM QUAL (test NEGATIVE NEGATIVE False negatives may occur when code=HCGQL) levels of hCGare below 10 mIU/ml. When is still suspected, a new specimenshould be obtained after 48 hours and re-tested.If waiting 48 hours is not medically advisable,the test result should be confirmed using aquantitative hCG assay. BASIC METABOLIC [id number] 19:51:00 Test Item Value Reference Range Comments [...] (test code=CA) 9.3 MG/DL 8.7-10.5 CBC W/AUTO [id number] 19:46:00 Test Item Value Reference Range Comments [...] (test code=BA#) 0.05 x10 3/uL 0.0-0.2 BLOOD [id number] 10:00:00 Test Item Value Reference Range Comments CULTURE (Getaround) (test pbxs=6811) No growth in 5 days HCG, QUANTITATIVE, [id number] 15:37:00 Test Item Value Reference Range Comments GONADOTROPIN, CHORIONIC (HCG) QUANT (Getaround) 72319 mIU/mL 0-10 (test dmgf=060) Non- Females: <10 mIU/mL Females: Gestation Age Reference Range(mIU/mL) 0.2-1 Week 5-50 1-2 Weeks 50-500 2-3 Weeks 100-5,000 3-4Weeks 500-10,000 4 -5 Weeks 1,000-50,000 5-6 Weeks 10,000-100,000 6-8 Weeks 15,000-200,000 2-3 Months 10,000-100,000COMPREHENSIVE METABOLIC [id number] 15:10:00 Test Item Value Reference Range Comments TOTAL PROTEIN (BEAKER) 7.0 gm/dL 6.0-8.3 (test rtkm=736) ALBUMIN (BEAKER) (test 3.9 g/dL 3.5-5.0 dard=6216) ALKALINE PHOSPHATASE 50 U/L 40-150 (BEAKER) (test eoum=109) BILIRUBIN TOTAL (BEAKER) 0.5 mg/dL 0.2-1.2 (test hcfw=644) SODIUM (BEAKER) (test 140 meq/L 136-145 mrsl=240) POTASSIUM (BEAKER) (test 3.4 meq/L 3.5-5.1 zfpq=272) CHLORIDE (BEAKER) (test 107 meq/L 98-107 nrca=184) CO2 (BEAKER) (test 21 meq/L 22-29 ymmp=119) BLOOD UREA NITROGEN 6 mg/dL 7-21 (BEAKER) (test nrrm=272) CREATININE (BEAKER) (test 0.54 mg/dL 0.57-1.25 eqob=511) GLUCOSE RANDOM (BEAKER) 76 mg/dL 70-105 (test fuay=033) CALCIUM (BEAKER) (test 9.2 mg/dL 8.4-10.2 scmg=043) AST (SGOT) (BEAKER) (test 57 U/L 5-34 kvjh=293) ALT (SGPT) (BEAKER) (test 84 U/L 6-55 kvdd=207) EGFR (BEAKER) (test 135 mL/min/1.73 sq ESTIMATED GFR IS NOT glci=9162) m ACCURATE CREATININE CLEARANCE IN PREDICTING GLOMERULAR FILTRATION RATE. ESTIMATED GFR IS NOT APPLICABLE FOR DIALYSIS PATIENTS. CBC W/PLT COUNT & AUTO [id number] 14:53:00 Test Item Value Reference Range Comments WHITE BLOOD CELL COUNT (BEAKER) (test zzou=745) 9.7 K/ L 3.5-10.5 RED BLOOD CELL COUNT (BEAKER) (test zony=777) 4.31 M/ L 3.93-5.22 HEMOGLOBIN (BEAKER) (test zmva=142) 10.0 GM/DL 11.2-15.7 HEMATOCRIT (BEAKER) (test auic=424) 31.9 % 34.1-44.9 MEAN CORPUSCULAR VOLUME (BEAKER) (test ijgh=007) 74.0 fL 79.4-94.8 MEAN CORPUSCULAR HEMOGLOBIN (BEAKER) (test 23.2 pg 25.6-32.2 vevz=457) MEAN CORPUSCULAR HEMOGLOBIN CONC (BEAKER) (test 31.3 GM/DL 32.2-35.5 gzwp=547) RED CELL DISTRIBUTION WIDTH (BEAKER) (test 19.0 % 11.7-14.4 ilbx=096) PLATELET COUNT (BEAKER) (test wwhk=546) 259 K/CU MM 150-450 MEAN PLATELET VOLUME (BEAKER) (test mojh=968) 9.9 fL 9.4-12.3 NUCLEATED RED BLOOD CELLS (BEAKER) (test 0 /100 WBC 0-0 cwxq=741) NEUTROPHILS RELATIVE PERCENT (BEAKER) (test 70 % jtcp=752) LYMPHOCYTES RELATIVE PERCENT (BEAKER) (test 21 % aqpd=282) MONOCYTES RELATIVE PERCENT (BEAKER) (test 8 % xsft=417) EOSINOPHILS RELATIVE PERCENT (BEAKER) (test 1 % msnx=116) BASOPHILS RELATIVE PERCENT (BEAKER) (test 1 % kixz=678) NEUTROPHILS ABSOLUTE COUNT (BEAKER) (test 6.75 K/ L 1.56-6.13 ygio=327) LYMPHOCYTES ABSOLUTE COUNT (BEAKER) (test 2.01 K/ L 1.18-3.74 fchg=556) MONOCYTES ABSOLUTE COUNT (BEAKER) (test 0.75 K/ L 0.24-0.36 vgsk=651) EOSINOPHILS ABSOLUTE COUNT (BEAKER) (test 0.07 K/ L 0.04-0.36 mtrh=694) BASOPHILS ABSOLUTE COUNT (BEAKER) (test 0.08 K/ L 0.01-0.08 figk=436) IMMATURE GRANULOCYTES-RELATIVE PERCENT (BEAKER) 0 % 0-1 (test nzku=9711) U/S, , FIRST [id number] 07:52:00Reason for exam:-> Reason for exam:->please include [...] 1 day. An embryonic pole is evident. Glassmanor-rump length measures 0.63 cm, correlating with estimated [...] MDReport Verified Date/Time: 05/17/2017 07:52:37 Reading Location: [address] Consult Reading Room PREGNANCY SCREEN, [id number] 05:28:00 Test Item Value Reference Range Comments TEST URINE (BEAKER) (test vwls=868) Positive MR, BRAIN, WITHOUT [id number] 18:54:00Reason for exam:->Stroke evaluationFINAL REPORT MRI brain [...] Verified Date/Time: 05/15/2017 18 :54:11 Reading Location: [facility] Radiology Reading Room EEG AWAKE AND [id number] 12:08:00Reason for exam:->? nonconvulsive statusDATE OF TEST: 2016DATE OF REPORT 05/15/2017 ACC: [id number] EE Start time: 1034 Stop time: 1054 ICD-10: R56.9CPT Code: 82354BULVOCI: 26 y/o woman with epilepsy found down [...] recordings.Marika Smith M.D.Neurophysiology FellowSwathi Harper M.D.Neurophysiology Attending [id number] 04:27:00 Test Item Value Reference Range Comments PROCALCITONIN (BEAKER) (test eymk=5861) 0.17 ng/mL <0.05 SEPSIS RISK (ng/mL)Low: 0.05-0.50Intermediate: 0.51-2.00High: & gt;=[id number] 03:15:00 Test Item Value Reference Range Comments PHOSPHORUS (BEAKER) (test ynzl=078) 3.1 mg/dL 2.3-4.7 [id number] 03:15:00 Test Item Value Reference Range Comments MAGNESIUM (BEAKER) (test fjdt=235) 1.9 mg/dL 1.6-2.6 BASIC METABOLIC [id number] 03:15:00 Test Item Value Reference Range Comments SODIUM (BEAKER) (test 139 meq/L 136-145 cxqb=156) POTASSIUM (BEAKER) (test 3.7 meq/L 3.5-5.1 kbyd=781) CHLORIDE (BEAKER) (test 110 meq/L 98-107 fctk=864) CO2 (BEAKER) (test 19 meq/L 22-29 wekg=534) BLOOD UREA NITROGEN 8 mg/dL 7-21 (BEAKER) (test nykk=537) CREATININE (BEAKER) (test 0.57 mg/dL 0.57-1.25 evum=479) GLUCOSE RANDOM (BEAKER) 92 mg/dL 70-105 (test ephx=599) CALCIUM (BEAKER) (test 9.2 mg/dL 8.4-10.2 idir=452) EGFR (BEAKER) (test 127 mL/min/1.73 sq m ESTIMATED GFR IS NOT gyvp=9025) ACCURATE CREATININE CLEARANCE IN PREDICTING GLOMERULAR FILTRATION RATE. ESTIMATED GFR IS NOT APPLICABLE FOR DIALYSIS PATIENTS. CREATINE KINASE (CK)2017-05-15 03:15:00 Test Item Value Reference Range Comments CREATINE KINASE TOTAL (BEAKER) (test phny=794) 200 U/L 29-200 LACTIC ACID, VENOUS, WHOLE [id number] 03:09:00 Test Item Value Reference Range Comments LACTATE BLOOD VENOUS (2) (BEAKER) (test 0.6 mmol/L 0.5-2.2 epzw=3484) Effective 10/17/2015: Units/Reference Range ChangeNew: 0.5-2.2 mmol/L Previous: 5 -20 mg/dLPROTHROMBIN TIME/[id number] 03:07:00 Test Item Value Reference Range Comments PROTIME (BEAKER) (test juam=092) 14.5 seconds 11.7-14.7 INR (BEAKER) (test nlex=067) 1.1 <=5.9 RECOMMENDED COUMADIN/WARFARIN INR THERAPY RANGESSTANDARD DOSE: 2.0 - 3.0 Includes: PROPHYLAXIS forvenous thrombosis, systemic embolization; TREATMENT for venous thrombosis and/or pulmonary embolus.HIGH RISK: Target INR is 2.5-3.5 for patients with mechanical heart valves.CBC W/PLT COUNT & AUTO [id number] 03:00:00 Test Item Value Reference Range Comments WHITE BLOOD CELL COUNT (BEAKER) (test mfgs=607) 21.6 K/ L 3.5-10.5 RED BLOOD CELL COUNT (BEAKER) (test kjjb=073) 4.04 M/ L 3.93-5.22 HEMOGLOBIN (BEAKER) (test nhyb=274) 9.3 GM/DL 11.2-15.7 HEMATOCRIT (BEAKER) (test wanc=664) 30.1 % 34.1-44.9 MEAN CORPUSCULAR VOLUME (BEAKER) (test bfjh=233) 74.5 fL 79.4-94.8 MEAN CORPUSCULAR HEMOGLOBIN (BEAKER) (test 23.0 pg 25.6-32.2 jxfj=259) MEAN CORPUSCULAR HEMOGLOBIN CONC (BEAKER) (test 30.9 GM/DL 32.2-35.5 wxtq=334) RED CELL DISTRIBUTION WIDTH (BEAKER) (test 19.3 % 11.7-14.4 xmbx=116) PLATELET COUNT (BEAKER) (test brrd=071) 250 K/CU MM 150-450 MEAN PLATELET VOLUME (BEAKER) (test gcsj=086) 10.3 fL 9.4-12.3 NUCLEATED RED BLOOD CELLS (BEAKER) (test 0 /100 WBC 0-0 fdeb=827) NEUTROPHILS RELATIVE PERCENT (BEAKER) (test 83 % xqsk=948) LYMPHOCYTES RELATIVE PERCENT (BEAKER) (test 9 % xmyt=747) MONOCYTES RELATIVE PERCENT (BEAKER) (test 8 % wfng=429) EOSINOPHILS RELATIVE PERCENT (BEAKER) (test 0 % qwdt=071) BASOPHILS RELATIVE PERCENT (BEAKER) (test 0 % bzbg=039) NEUTROPHILS ABSOLUTE COUNT (BEAKER) (test 17.85 K/ L 1.56-6.13 tayp=227) LYMPHOCYTES ABSOLUTE COUNT (BEAKER) (test 1.98 K/ L 1.18-3.74 owuv=771) MONOCYTES ABSOLUTE COUNT (BEAKER) (test 1.62 K/ L 0.24-0.36 webv=847) EOSINOPHILS ABSOLUTE COUNT (BEAKER) (test 0.01 K/ L 0.04-0.36 jkom=924) BASOPHILS ABSOLUTE COUNT (BEAKER) (test 0.04 K/ L 0.01-0.08 oztg=376) IMMATURE GRANULOCYTES-RELATIVE PERCENT (BEAKER) 1 % 0-1 (test jazy=0640) RAD, CHEST, 1 VIEW, NON [id number] 01:06:00Reason for exam:->possible infectionShould this be performed [...] MDReport Verified Date/Time: 2016 01:06:06 Reading Location: [address] Reading Room
[2019-08-09] MEDS ORDERED: ONDANSETRON 4 MG/2 ML VIAL ONE (16:53)
[2019-08-09] MEDS ORDERED: NA CHLORIDE 0.9% 1,000 ML ONE (17:05)
[2019-08-09 17:36] LABS: Absolute Lymphocytes (CBC) 2.1 K/uL (0.7-4.9); Basophils % 0.6 % (0-1.3); Hematocrit 28.3 % (36.0-45.0); Lymphocytes % 24.9 % (15.3-44.8); MPV 8.4 fL (7.6-11.3); RBC Red Blood Cell Count 3.85 M/uL (3.86-4.86)
[2019-08-09] MEDS ORDERED: levETIRAcetam 1,000 MG in NA CHLORIDE 0.9% 100 ML IV ONE (18:00)
[2019-08-09 18:25] LABS: BUN Blood Urea Nitrogen 7 mg/dL (7-18); Bicarbonate 26 mmol/L (21-32); Glucose Level 109 mg/dL (74-106); Potassium 3.6 mmol/L (3.5-5.1); Sodium Level 140 mmol/L (136-145)
--- NOTE | 2019-08-09 18:36 | RAD REPORT ---
EXAM DESCRIPTION: CT - Head Brain W Cont - 08/09/2019 6:30 pm CLINICAL HISTORY: seizure COMPARISON: Head Brain Wo Cont dated 07/03/2019 TECHNIQUE: Axial 5 mm thick images of the head were obtained without IV contrast. All CT scans are performed using dose optimization technique as appropriate and may include automated exposure control or mA/KV adjustment according to patient size. FINDINGS: No intracranial hemorrhage, mass, edema or shift of mid-line structures. No acute infarcti on changes seen. No abnormal extra-axial fluid collections. Ventricles are normal. Physiologic calcif ications are present. Mastoid air cells and visualized portions of the paranasal sinuses are clear. No acute bony findings. IMPRESSION: Negative non-contrast CT head examination. No significant change from July 03 imagi ng.
--- NOTE | 2019-08-09 19:22 | RAD REPORT ---
EXAM DESCRIPTION: RAD - Chest Single View - 08/09/2019 6:34 pm CLINICAL HISTORY: r/o pneumonia, shortness of breath, chest pain episodes COMPARISON: Chest Single View dated 07/03/2019 TECHNIQUE: AP portable chest image was obtained 08/09/2019 6:34 pm . FINDINGS: Lungs are clear. Heart and vasculature are normal. No measurable pleural effusion and no p neumothorax. No acute bony abnormality seen. No acute aortic findings suspected. IMPRESSION: No acute cardiopulmonary process. No significant interval change.
--- NOTE | 2019-08-09 23:33 | EDPHYS ---
Physician Documentation [facility] Name: Heather Hope Age: 28 yrs Sex: Female : 1990 Arrival Date: 08/09/2019 Time: 16:23 Bed 5 Private MD: ED Physician Rambo Beck HPI: 08/09 16:59 This 28 yrs old Female presents to ER via Ambulatory with complaints of kb Seizure, Vaginal Bleeding. 16:59 The patient presents with a history of multiple seizures, multiple over the last 4 kb days. Character of seizure(s): Loss of consciousness: the patient experienced loss of consciousness, Motor activity: generalized, shaking all over, Incontinence: none. Seizure onset: 4 days ago. Context: Contributing factors: unknown. Seizure Hx: Original onset: longstanding. Associated injury: The patient did not suffer any apparent associated injury. Current symptoms: Currently, the patient is not experiencing any symptoms, the patient feels back to baseline, no decreased level of consciousness, no confusion, no dysphasia, no headache, no paralysis, no visual changes. The patient has experienced similar episodes in the past. The patient has not recently seen a physician. Pt reports seizures over the past 4 days, vaginal bleeding for 2 weeks, and head and chest pain after a fall caused by a seizure 3 days ago. Historical: - Allergies: 16:28 No Known Allergies; sv - PMHx: 16:28 Seizures; sv - PSHx: 16:28 None; sv - Immunization history:: Adult Immunizations unknown. - Coronavirus screen:: The patient has NOT traveled to [place] in the past 14 days. - Social history:: Smoking status: unknown. - Ebola Screening: : No symptoms or risks identified at this time. ROS: 16:52 Constitutional: Negative for fever, chills, and weight loss, ENT: Negative for injury, kb pain, and discharge, Neck: Negative for injury, pain, and swelling, Respiratory: Negative for shortness of breath, cough, wheezing, and pleuritic chest pain, Abdomen/GI: Negative for abdominal pain, nausea, vomiting, diarrhea, and constipation, Back: Negative for injury and pain, MS/Extremity: Negative for injury and deformity, Skin: Negative for injury, rash, and discoloration. 16:52 Cardiovascular: Positive for chest pain. 16:52 Neuro: Positive for seizure activity. 16:58 : Positive for vaginal bleeding. kb Exam: 17:07 Head/Face: Normocephalic, atraumatic. ENT: Nares patent. No nasal discharge, no kb septal abnormalities noted. Tympanic membranes are normal and external auditory canals are clear. Oropharynx with no redness, swelling, or masses, exudates, or evidence of obstruction, uvula midline. Mucous membranes moist. Neck: Trachea midline, no thyromegaly or masses palpated, and no cervical lymphadenopathy. Supple, full range of motion without nuchal rigidity, or vertebral point tenderness. No Meningismus. Chest/axilla: Normal chest wall appearance and motion. Nontender with no deformity. No lesions are appreciated. Respiratory: Lungs have equal breath sounds bilaterally, clear to auscultation and percussion. No rales, rhonchi or wheezes noted. No increased work of breathing, no retractions or nasal flaring. Abdomen/GI: Soft, non-tender, with normal bowel sounds. No distension or tympany. No guarding or rebound. No evidence of tenderness throughout. Skin: Warm, dry with normal turgor. Normal color with no rashes, no lesions, and no evidence of cellulitis. MS/ Extremity: Pulses equal, no cyanosis. Neurovascular intact. Full, normal range of motion. 17:07 Constitutional: The patient appears drowsy 17:07 Cardiovascular: Rate: tachycardic, Rhythm: regular, Pulses: no pulse deficits are appreciated, Heart sounds: normal, normal S1and S2. 17:07 Neuro: Orientation: to person, place, time \T\ situation. Mentation: is normal, able to follow commands. 17:16 ECG was reviewed by the Attending Physician. kb Vital Signs: 16:28 BP 128 / 86; Pulse 130; Resp 20; Temp 98.8(TE); Pulse Ox 98% ; Weight 58.97 kg; Height sv 5 ft. 3 in. (160.02 cm); 17:46 BP 110 / 76; Pulse 133; Resp 18; Pulse Ox 100% ; ph 19:04 BP 124 / 73; Pulse 114; Resp 18; Pulse Ox 98% on R/A; ph 16:28 Body Mass Index 23.03 (58.97 kg, 160.02 cm) sv [place] Coma Score: 16:54 Eye Response: to voice(3). Verbal Response: confused(4). Motor Response: localizes ph pain(5). Total: 12. MDM: 16:43 Patient medically screened. kb 16:52 Data reviewed: vital signs, nurses notes. Data interpreted: Pulse oximetry: on room air kb is 98 %. Interpretation: normal. 17:41 Transition of care: After a detail discussion of the patient's case, care is kb transferred to Rambo Beck MD. 19:52 Data reviewed: lab test result(s), CBC, electrolytes, radiologic studies, CT scan. tw4 Counseling: I had a detailed discussion with the patient and/or guardian regarding: the historical points, exam findings, and any diagnostic results supporting the discharge/admit diagnosis, lab results. Special discussion: I discussed with the patient/guardian in detail that at this point there is no indication for admission to the hospital. It is understood, however, that if the symptoms persist or worsen the patient needs to return immediately for re-evaluation. 08/09 16:51 Order name: CBC with Diff 08/09 16:51 Order name: Basic Metabolic Panel 08/09 17:07 Order name: CT Head Brain wo Cont 08/09 17:07 Order name: Chest Single View XRAY 08/09 16:51 Order name: IV Start; Complete Time: 16:58 kb 08/09 16:51 Order name: EKG; Complete Time: 22:46 kb 08/09 16:51 Order name: EKG - Nurse/Tech; Complete Time: 17:18 kb EC:16 Rate is 133 beats/min. Rhythm is regular, Sinus tachycardia. QRS [place] is Normal. SC kb interval is normal at 112 msec. QRS interval is normal at 84 msec. QT interval is normal at 386 msec. Administered Medications: 16:57 Drug: Zofran 4 mg Route: IVP; Site: right antecubital; ph 18:33 Follow up: Response: No adverse reaction; Nausea is decreased ph 17:16 Drug: NS 0.9% 1000 ml Route: IV; Rate: 1000 ml; Site: right antecubital; ph 17:45 Drug: Keppra 1000 mg Route: IV; Rate: calculated rate; Site: right antecubital; ph 18:00 Follow up: Response: No adverse reaction; IV Status: Completed infusion ph Disposition: 19:54 Co-signature as Attending Physician, Rmabo Beck MD I agree with the assessment and tw4 plan of care. Disposition: 08/09/19 19:53 Discharged to Home. Impression: Epilepsy and recurrent seizures. - Condition is Stable. - Discharge Instructions: Seizure, Adult. - Prescriptions for Keppra 750 mg Oral Tablet - take 1 tablet by ORAL route every 12 hours; 20 tablet. - Medication Reconciliation Form, Thank You Letter, Antibiotic Education, Prescription Opioid Use form. - Follow up: Private Physician; When: Upon discharge from the Emergency Department; Reason: If symptoms return, Recheck today's complaints, Continuance of care, Re-evaluation by your physician. - Problem is an ongoing problem. - Symptoms have improved. Signatures: Dispatcher [employer] EDMS Opal Gresham, HEAD FIELD HOCKEY COACH-C HEAD FIELD HOCKEY COACH-Marissa Espitia, RN RN Bart Arnett RN RN Ewa Dominguez RN Rambo Ham ph, MD MD tw4 Corrections: (The following items were deleted from the chart) 20:51 19:53 08/09/2019 19:53 Discharged to Home. Impression: Epilepsy and recurrent seizures. sg Condition is Stable. Forms are Medication Reconciliation Form, Thank You Letter, Antibiotic Education, Prescription Opioid Use. Follow up: Private Physician; When: Upon discharge from the Emergency Department; Reason: If symptoms return, Recheck today's complaints, Continuance of care, Re-evaluation by your physician. Problem is an ongoing problem. Symptoms have improved. tw4
--- NOTE | 2019-08-09 23:33 | ER ---
Nurse's Notes [facility] Name: Heather Hope Age: 28 yrs Sex: Female : 1990 Arrival Date: 08/09/2019 Time: 16:23 Bed 5 Private MD: Diagnosis: Epilepsy and recurrent seizures Presentation: 08/09 16:26 Presenting complaint: Patient states: mx seizures the past 4 days, has a hx of sv seizures. Reports vaginal bleeding x 2 week and the bleeding has increased, is going through 3 pads an hours. Reports she had fallen 3 days ago after having a seizure and hit her head and started having chest pain since then. Transition of care: patient was not received from another setting of care. Onset of symptoms was August 06, 2019. Care prior to arrival: None. 16:26 Method Of Arrival: Ambulatory sv 16:26 Acuity: DARLYN 2 sv 16:55 Risk Assessment: Do you want to hurt yourself or someone else? Patient reports no ph desire to harm self or others. Initial Sepsis Screen: Does the patient meet any 2 criteria? Altered Mental Status. HR > 90 bpm. No. Patient's initial sepsis screen is negative. Does the patient have a suspected source of infection? No. Patient's initial sepsis screen is negative. Triage Assessment: 16:54 General: Appears ill, Behavior is drowsy, uncooperative. ph Historical: - Allergies: 16:28 No Known Allergies; sv - PMHx: 16:28 Seizures; sv - PSHx: 16:28 None; sv - Immunization history:: Adult Immunizations unknown. - Coronavirus screen:: The patient has NOT traveled to [place] in the past 14 days. - Social history:: Smoking status: unknown. - Ebola Screening: : No symptoms or risks identified at this time. Screenin:53 Abuse screen: Denies threats or abuse. Nutritional screening: No deficits noted. ph Tuberculosis screening: No symptoms or risk factors identified. Fall Risk Fall in past 12 months (25 points). Secondary diagnosis (15 points) seizures, IV access (20 points). Ambulatory Aid- None/Bed Rest/Nurse Assist (0 pts). Gait- Impaired (20 pts.). Mental Status- Total Green Fall Scale indicates High Risk Score (45 or more points). Assessment: 16:51 General: Appears ill, Behavior is drowsy, uncooperative. Pain: Unable to use pain ph scale. Patient is disoriented. Neuro: Reports multiple seizures the past few days. Cardiovascular:. Respiratory: No deficits noted. GI: No deficits noted. : Reports vaginal bleeding that is. 19:02 : Reports vaginal bleeding that is heavy flow. Derm: Skin is intact, is healthy with ph good turgor, Skin is pink, warm \\T\\ dry. Musculoskeletal: Circulation, motion, and sensation intact. Range of motion: intact in all extremities. 19:05 Reassessment: PT is resting in bed with eyes closed, respirations are even, symmetrical jb4 and unlabored. No s/s of distress or pain noted. Skin is intact, pink warm and dry. 20:40 Reassessment: at bedside updating pt on results and discharge instructions, sg pt stated understanding, pt is alert and oriented x 3 at this time, reports "feeling groggy, tired." pt to be discharged to home. Vital Signs: 16:28 BP 128 / 86; Pulse 130; Resp 20; Temp 98.8(TE); Pulse Ox 98% ; Weight 58.97 kg; Height sv 5 ft. 3 in. (160.02 cm); 17:46 BP 110 / 76; Pulse 133; Resp 18; Pulse Ox 100% ; ph 19:04 BP 124 / 73; Pulse 114; Resp 18; Pulse Ox 98% on R/A; ph 16:28 Body Mass Index 23.03 (58.97 kg, 160.02 cm) sv [place] Coma Score: 16:54 Eye Response: to voice(3). Verbal Response: confused(4). Motor Response: localizes ph pain(5). Total: 12. ED Course: 16:23 Patient arrived in ED. as 16:27 Triage completed. sv 16:28 Arm band placed on. sv 16:32 Ramonita Barrera RN is Primary Nurse. jl7 16:43 Opal Gresham FNP-C [facility]. kb 16:43 Johnathan Sanchez MD is Attending Physician. kb 16:45 Inserted saline lock: 20 gauge in right antecubital area, using aseptic technique. ph Blood collected. 16:51 Ewa Garcia, CLAUDIA is Primary Nurse. ph 16:56 Patient has correct armband on for positive identification. Fall risk band placed. Bed ph in low position. Call light in reach. Side rails up X2. Adult w/ patient. Seizure precautions initiated. Pulse ox on. NIBP on. 17:42 Rambo Beck MD is Attending Physician. kb 17:45 Warm blanket given. Pillow given. Verbal reassurance given. Head of bed elevated. ph Turned to back. 19:53 Primary Nurse role handed off by Ewa Garcia, CLAUDIA jb4 19:53 Don Ag, RN is Primary Nurse. jb4 20:45 No provider procedures requiring assistance completed. IV discontinued, intact, sg bleeding controlled, No redness/swelling at site. Pressure dressing applied. Administered Medications: 16:57 Drug: Zofran 4 mg Route: IVP; Site: right antecubital; ph 18:33 Follow up: Response: No adverse reaction; Nausea is decreased ph 17:16 Drug: NS 0.9% 1000 ml Route: IV; Rate: 1000 ml; Site: right antecubital; ph 17:45 Drug: Keppra 1000 mg Route: IV; Rate: calculated rate; Site: right antecubital; ph 18:00 Follow up: Response: No adverse reaction; IV Status: Completed infusion ph Outcome: 19:53 Discharge ordered by . tw4 20:45 Discharged to pt able to ambulate to wheelchair for [facility] 20:45 Condition: good 20:45 Discharge instructions given to patient, Instructed on discharge instructions, follow up and referral plans. safety practices, Demonstrated understanding of instructions, follow-up care, medications, Prescriptions given X 1. 20:51 Patient left the ED. sg Signatures: Opal Gresham FNP-C FNP-Marissa Espitia RN RN Bart Maguire RN RN sg Codi Bianchi as Ewa Garcia RN RN Don Ag RN RN jb4 Ramonita Barrera RN RN jl7 Rambo Beck MD MD tw4 Corrections: (The following items were deleted from the chart) 16:29 16:26 Presenting complaint: Patient states: mx seizures the past 4 days, has a hx of sv seizures. Reports vaginal bleeding x 2 week and the bleeding has increased, is going through 3 pads an hours. sv 16:29 16:28 Pulse 130bpm; Resp 20bpm; Pulse Ox 98%; Temp 98.8F Temporal; 58.97 kg; Height 5 sv ft. 3 in.; BMI: 23.0; sv
[2019-08-10 01:17] VITALS: TEMP 98.8
[2019-08-10 01:20] VITALS: BP 124/73; O2SAT 98
--- NOTE | 2019-08-10 08:18 | EKG ---
Test Date: 2019-08-09 Test Time: 16:57:01 Facility Mechanic: MARISOL MEASUREMENT RESULTS: Intervals: Rate: 133 [place]: 112 QRSD: 84 QT: 386 QTc: 574 [place]: P: [place]: 112 QRS: 62 T: 27 INTERPRETIVE STATEMENTS: Sinus tachycardia Otherwise normal ECG Compared to ECG 07/03/2019 20:57:11 No significant changes Electronically Signed On 08-10-19 08:17:53 HUMAN SERVICES ASSISTANT by Gerard Edwards
== END 2019-08-09 20:51 | disposition home or self-care (01) ==
LOC: ER 16:22
DX: G40.802 Other epilepsy, not intractable, without status epilepticus (principal)
CPT/HCPCS: 93005; 85025; 80048; 36415; 70460; 71045; 96375; 96374; 99284; J1953; J7030; J2405

== ENCOUNTER 2019-08-21 13:23 | Observation (INO) | payer OTHER ==
--- OUTSIDE RECORDS SUMMARY | 2019-08-21 13:27 | XMS REPORT ---
:1990 [facility] Address [address] [place] [address] Care Team Providers Name Role Phone MILES [...] Dt (test code=Expiration Dt) 04-14-2020 Thyroid Stimulating [id number] 07:59:52 Test Item Value Reference Range Comments TSH (test code=TSH) 0.717 mIU/mL 0.270-4.200 Lipid [id number] 07:52:46 Test Item Value Reference Range Comments Cholesterol Total (test 141 mg/dL 0-200 RISK OF HEART DISEASEPublished code=Cholesterol Total) by [employer] Analyte Optimal Borderline Increased RiskCHOL [...] is LDL/HDL Ratio=LDL Calc/HDL Chol Urine Drug [id number] 15:27:40 Test Item Value Reference Range Comments [...] separate confirmatory test if desired. Comprehensive Metabolic [id number] 15:15:20 Test Item Value Reference Range Comments [...] (test code=A/G Ratio) 1.9 ratio Comprehensive Metabolic [id number] 15:15:20 Test Item Value Reference Range Comments [...] is not provided, and the patient is -Polish, multiply by 1.212. If sex is not [...] by the National Kidney Foundation, http://nkdep.nih.gov Alcohol [id number] 15:15:20 Test Item Value Reference Range Comments Ethanol Level (test <0.00 g/dL 0.00-0.01 Intoxicated 0.080 g/dL or more code=Ethanol Level) Ethanol Inst (test <0 code=Ethanol Inst) Comprehensive Metabolic [id number] 15:15:20 Test Item Value Reference Range Comments [...] is not provided, and the patient is -Polish, multiply by 1.212. If sex is not [...] is not provided, and the patient is -Polish, multiply by 1.212. If sex is not [...] by the National Kidney Foundation, http://nkdep.nih.gov Urinalysis [id number] 15:11:20 Test Item Value Reference Range Comments UA WBC (test code=UA WBC) 6-10 0-5 UA RBC (test code=UA RBC) 0-5 0-5 UA Bacteria (test code=UA Bacteria) Moderate UA Squam Epithelial (test code=UA Squam Epithelial) TNTC UA Mucous (test code=UA Mucous) Few Urinalysis with Microscopic if [id number] 14:42:58 Test Item Value Reference Range Comments [...] Micro Ind?) GL_SJM_UA_MICRO_IND Complete Blood Count with [id number] 14:37:26 Test Item Value Reference Range Comments [...] XN) IPF (test code=IPF) 0 % Automated [id number] 14:37:26 Test Item Value Reference Range Comments Neutro Auto (test code=Neutro Auto) 65.8 % 36.0-70.0 Lymph Auto (test code=Lymph Auto) 25.5 % 12.0-44.0 Lyman Auto (test code=Lyman Auto) 7.3 % 0.0-11.0 Eos, Auto (test code=Eos, Auto) 0.7 % 0.0-7.0 Basophil Auto (test code=Basophil Auto) 0.5 % 0.0-2.0 Neutro Absolute (test code=Neutro Absolute) 6.0 x10 1.6-7.4 Lymph Absolute (test code=Lymph Absolute) 2.34 x10 .50-4.60 Lyman Absolute (test code=Lyman Absolute) .67 x10 .00-1.20 Eos Absolute (test code=Eos Absolute) 0.06 x10 0.00-0.74 Baso Absolute (test code=Baso Absolute) 0.05 x10 0.00-0.21 IG [id number] 14:37:26 Test Item Value Reference Range Comments IG (test code=IG) 0.2 % 0.0-5.0 IG Abs (test code=IG Abs) 0 x10 HCG Qualitative [id number] 14:34:08 Test Item Value Reference Range Comments hCG Ur (test code=hCG Ur) Negative If the result is "Negative" in patients suspected to be , recommend retest with a sample obtained 48 to 72 hours later, or by ordering a quantitative assay. If the result is "Borderline" testing should be repeated in 48 to 72 hours. Lot # (test code=Lot #) [id number] Expiration Dt (test 2020-03-14 code=Expiration Dt) Neg Control (test code=Neg Negative Control) Pos Control (test code=Pos Positive Control) Internal QC (test Acceptable code=Internal QC) DRUGS OF ABUSE SCREEN [id number] 17:11:00 Test Item Value Reference Range Comments [...] Methadone cut-off code=METHAURN) concentration: 300 ng/mL URINALYSIS [id number] 17:08:00 Test Item Value Reference Range Comments [...] UA BACTERIA (test code=BACU) MOD NONE URINALYSIS [id number] 17:00:00 Test Item Value Reference Range Comments [...] UA BACTERIA (test code=BACU) NONE HCG SERUM [id number] 16:52:00 Test Item Value Reference Range Comments HCG SERUM QUAL (test code=HCGQL) NEGATIVE NEGATIVE - CT HEAD/BRAIN W/O [id number] 16:51:00 FAX: Theresa Fields MD [place]: St: REG Name: SAHRA NETTLES [facility] : 1990 Age/S: 28/F [address] Unit: [id number] Loc: [place], [place]: [place] [id number] Acct: [id number] Dis Date: Status: REG ER PHONE #: [phone] Exam Date: 02/23/2019 1642 FAX #: [phone] Reason: SEIZURE EXAMS: CPT CODE: [id number] CT HEAD/BRAIN W/O CONT 07396 Dictation location: U19. CT HEAD WITHOUT CONTRAST. [...] No evidence of acute intracranial abnormality. at 2891 Reported and signed by: Mark Morrison M.D. CC: Theresa Fields MD Technologist: SAHRA DICKSON Trnscrd Dt/Tm: 02/23/2019 (6304) AngeliqueSP17 Orig Print D/T: S: 02/23/2019 (1654 PAGE 1 Signed ReportBASIC METABOLIC [id number] 16:31:00 Test Item Value Reference Range Comments [...] (test code=CA) 8.8 mg/dl 8.0-10.5 BASIC METABOLIC [id number] 16:26:00 Test Item Value Reference Range Comments [...] CALCIUM (test code=CA) mg/dl 8.0-10.5 CBC W/AUTO [id number] 16:15:00 Test Item Value Reference Range Comments [...] (test 8 MG/DL 3-60 code=VLDL) RAPID PLASMA [id number] 10:31:00 Test Item Value Reference Range Comments RAPID PLASMA REAGIN (test code=RPR) Nonreactive Nonreactive GLYCOSYLATED HEMOGLOBIN (HA1C)2018-12-07 10:05:00 Test Item Value Reference Range Comments GLYCOSYLATED HEMOGLOBIN (HA1C) (test 5.8 % TOT HB 4.5-6.2 code=GLYHGB) [id number] 15:31:00 Test Item Value Reference Range Comments ACETAMINOPHEN (test < 1 MCG/ML 10-30 Acetaminophen is possibly code=ACET) toxic at levels of: 1. more than 150 MCG/ML 4 hours post ingestion. 2. more than 50 MCG/ML 12 hours post ingestion. [id number] 15:31:00 Test Item Value Reference Range Comments SALICYLATE (test code=BOSSMAN) < 3 MG/DL 0-20 Reference Range: Analgesic.................. < 10 mg/dl Therapeutic................ 15-20 mg/dl Mild Toxicity.............. > 30 mg/dl Severe Toxicity............ > 60 mg/dl UA RFLX [id number] 14:18:00 Test Item Value Reference Range Comments [...] SPECIMEN DESCRIPTION (test Clean Catch code=UASPEC) UA [id number] 14:18:00 Test Item Value Reference Range Comments UA WBC (test code=WBCU) < 10 #/hpf <10 UA RBC (test code=RBCU) 0-2 #/hpf NONE SEEN UA BACTERIA (test code=BACU) RARE #/hpf NONE SEEN UA SQUAMOUS CELLS (test code=SQU) 0 - 20 #/lpf <100 UA MUCUS (test code=MUCU) 1+ #/lpf NONE SEEN BASIC METABOLIC [id number] 14:16:00 Test Item Value Reference Range Comments [...] (test code=CA) 9.4 MG/DL 8.7-10.5 HEPATIC FUNCTION [id number] 14:16:00 Test Item Value Reference Range Comments [...] PHOSPHATASE TOTAL 74 Units/L 50-136 (test code=ALKP) [id number] 14:16:00 Test Item Value Reference Range Comments CK (test code=CKT) 87 Units/L 26-192 [id number] 14:16:00 Test Item Value Reference Range Comments ALCOHOL (test code=ALC) < 3 MG/DL 0-10 0 - 10: Should be interpreted as NEGATIVE. 11 - 50: None to mild euphoria. 51 - 100: Mild influence on vision and dark adaptation. > 80: Legal intoxication; Depression of CENTRIFUGAL SEPARATOR; Increasing degree of poisoning. > 400: Fatalities reported. Results are for medical purposes only and not forlegal or employment evaluative purposes. BASIC METABOLIC [id number] 14:09:00 Test Item Value Reference Range Comments [...] (test code=CA) 9.4 MG/DL 8.7-10.5 HEPATIC FUNCTION [id number] 14:09:00 Test Item Value Reference Range Comments TOTAL PROTEIN (test code=PROT) G/DL 6.4-8.2 ALBUMIN (test code=ALB) G/DL 3.4-5.0 GLOBULIN (test code=GLOB) G/DL 1.5-3.8 ALBUMIN/GLOBULIN RATIO (test code=A/G) 1.1-2.2 BILIRUBIN TOTAL (test code=BILT) MG/DL 0.0-1.0 BILIRUBIN DIRECT (test code=BILD) MG/DL 0.0-0.3 SGOT/AST (test code=AST) Units/L 15-37 SGPT/ALT (test code=ALT) Units/L 30-65 ALKALINE PHOSPHATASE TOTAL (test code=ALKP) Units/L 50-136 [id number] 14:09:00 Test Item Value Reference Range Comments CK (test code=CKT) Units/L 26-192 [id number] 14:09:00 Test Item Value Reference Range Comments ALCOHOL (test code=ALC) MG/DL 0-10 LACTIC ACID [id number] 13:50:00 Test Item Value Reference Range Comments LACTIC ACID POC (test 0.97 MMOL/L 0.90-1.70 Performed by certified code=LACTP) electric drill operator at [facility] [id number] 13:48:00 Test Item Value Reference Range Comments GLUBED (test code=GLUBED) 88 MG/DL 65-99 Performed by certified electric drill operator at [facility] DRUG OF ABUSE SCREEN [id number] 13:43:00 Test Item Value Reference Range Comments [...] confirmed by alternate methods (i.e., GC/MS) at [facility]. Results of screen may not be usedin criminal justice, job performance or professionalcredential review, or infant custody issues. Negative Robinson Level ng/ml ----- Cocaine 300 Methamphetamine (Ecstacy) 500 Cannabinoids (THC) 50 Amphetamine 1000 Barbiturates 200 Benzodiazepines 200 Opiates 300 Phencyclidine (PCP) 25 UR HCG [id number] 13:39:00 Test Item Value Reference Range Comments UR HCG QUAL (test NEGATIVE NEGATIVE False negatives may occur when code=HCGQLU) levels of hCGare below 20 mIU/ml. When is still suspected, a new specimenshould be obtained after 48 hours and re-tested.If waiting 48 hours is not medically advisable,the test result should be confirmed using aquantitative hCG assay. UA RFLX [id number] 13:38:00 Test Item Value Reference Range Comments [...] SPECIMEN DESCRIPTION (test Clean Catch code=UASPEC) UA [id number] 13:38:00 Test Item Value Reference Range Comments UA WBC (test code=WBCU) #/hpf <10 UA RBC (test code=RBCU) #/hpf NONE SEEN UA SQUAMOUS CELLS (test code=SQU) #/lpf <100 UA RFLX [id number] 13:38:00 Test Item Value Reference Range Comments [...] SPECIMEN DESCRIPTION (test Clean Catch code=UASPEC) UA [id number] 13:38:00 Test Item Value Reference Range Comments UA WBC (test code=WBCU) #/hpf <10 UA RBC (test code=RBCU) #/hpf NONE SEEN UA SQUAMOUS CELLS (test code=SQU) #/lpf <100 CBC W/AUTO [id number] 13:26:00 Test Item Value Reference Range Comments [...] # (test code=BA#) 0.05 x10 3/uL 0.0-0.2 [id number] 19:07:00 Test Item Value Reference Range Comments LEVETIRACETAM (test 28.7 ug/mL 10.0-40.0 This test was developed and its code=LEVTAM) performance characteristicsdetermined by [facility]. It has not been cleared orapproved by the Food and Drug Administration.Performed At: [address] [id number] Dias MD Ph:[phone] BASIC METABOLIC [id number] 04:58:00 Test Item Value Reference Range Comments [...] 0.60-1.00 CALCIUM (test code=CA) 8.9 MG/DL 8.7-10.5 [id number] 04:58:00 Test Item Value Reference Range Comments MAGNESIUM (test code=MAG) 1.9 MG/DL 1.8-2.4 CBC W/AUTO [id number] 04:08:00 Test Item Value Reference Range Comments [...] X10 3/uL 0.0-0.2 - MRI BRAIN W/O [id number] 13:51:00 Patient Name: SAHRA NETTLES Unit No: [id number] EXAMS: CPT CODE: [id number] MRI BRAIN W/O CONTRAST 19801 Reason: sz INDICATION: Seizure COMPARISON: CT brain, [...] Gutierrez MD Technologist: Andre FRANCIS Trscrpt Dt/ (6014)Aurelio.DW6 Orig Print D/T: S: 09/17/2018 (0470) [facility] CntNAME: SAHRA NETTLES [address] PHYS: [place] [address] : 1990 AGE: 27 SEX: F LOC: D.D313 1 PHONE #: [phone] EXAM DATE: 09/17/2018 STATUS: ADM IN FAX #: RAD NO: DC Dt: PAGE 1 Signed [id number] 07:25:00 Test Item Value Reference Range Comments PROLACTIN (test code=PROLAC) 24.6 ng/mL 4.8-23.3 Performed At: [facility] [address] [id number] Sb Man MD Ph:[phone] UA RFLX MICROSCOPIC [id number] 19:02:00 Test Item Value Reference Range Comments [...] met URINE SOURCE: Clean CatchUA RFLX MICROSCOPIC [id number] 18:56:00 Test Item Value Reference Range Comments [...] CULTURE NEEDED? (test code=UACULT) URINE SOURCE: Clean [id number] 15:56:00 Test Item Value Reference Range Comments CK (test code=CKT) 34 Units/L 26-192 BASIC METABOLIC [id number] 12:57:00 Test Item Value Reference Range Comments [...] 0.60-1.00 CALCIUM (test code=CA) 8.6 MG/DL 8.7-10.5 [id number] 12:57:00 Test Item Value Reference Range Comments CK (test code=CKT) 32 Units/L 26-192 CBC W/AUTO [id number] 12:33:00 Test Item Value Reference Range Comments [...] 0.0 X10 3/uL 0.0-0.2 TOTAL IRON BINDING [id number] 05:50:00 Test Item Value Reference Range Comments SERUM IRON (test code=IRON) 17 MCG/DL 50-170 TOTAL IRON BINDING CAPACITY (test code=TIBC) 363 MCG/DL 280-400 IRON SATURATION (test code=FESAT) 5 % 15-50 [id number] 05:50:00 Test Item Value Reference Range Comments FERRITIN (test code=LULI) 11 NG/ML 3-105 HEPATIC FUNCTION [id number] 05:32:00 Test Item Value Reference Range Comments [...] 50-136 (test code=ALKP) - CT HEAD/BRAIN W/O [id number] 20:19:00 Patient Name: SAHRA NETTLES Unit No: [id number] EXAMS: CPT CODE: [id number] CT HEAD/BRAIN W/O CONT 79340 Reason: seizure TECHNIQUE: Contiguous 5 mm images [...] Print D/T: S: 07/2018 (2021) CTDI: DLP: [facility] NAME: [address] PHYS: NGA. - Keanu Váz[place] [address] : 1990 AGE: 27 SEX: F LOC: D.NER PHONE#: [phone] EXAM DATE: 07/2018 STATUS: REG ER FAX #: RAD NO: DC Dt: PAGE 1 Signed Report- XR CHEST 1 [id number] 20:18:00 [facility] Unit No: [id number] EXAMS: CPT CODE: [id number] XR CHEST 1 V 64661 Reason: screen for pneumonia FINDINGS: Single view ofthe chest shows normal heart size and pulmonary vasculature. The lungs are clear bilaterally. There is no focal infiltrate, pleural effusion or pneumothorax. IMPRESSION: No acute cardiopulmonary findings at 2018 Reported and signed by : Lashell Jimenez MD CC: Keanu Vázquez MD; Cristiane Heath Technologist: Edel Cade CT Trscrpt Dt/ (2017)Tristan Orig PrintD/T: S: 09/14/2018 (2020) [facility]: NGA. - Keanu Váz[place] [address] : 1990 AGE: 27 SEX: F LOC: MATT PHONE #: [phone] EXAM DATE: 09/14/2018 STATUS: REG ER FAX #: RAD NO: DC Dt: PAGE 1 Signed ReportHCG SERUM [id number] 20:04:00 Test Item Value Reference Range Comments HCG SERUM QUAL (test NEGATIVE NEGATIVE False negatives may occur when code=HCGQL) levels of hCGare below 10 mIU/ml. When is still suspected, a new specimenshould be obtained after 48 hours and re-tested.If waiting 48 hours is not medically advisable,the test result should be confirmed using aquantitative hCG assay. BASIC METABOLIC [id number] 19:51:00 Test Item Value Reference Range Comments [...] (test code=CA) 9.3 MG/DL 8.7-10.5 CBC W/AUTO [id number] 19:46:00 Test Item Value Reference Range Comments [...] (test code=BA#) 0.05 x10 3/uL 0.0-0.2 BLOOD [id number] 10:00:00 Test Item Value Reference Range Comments CULTURE (StyleCaster) (test ljzn=7896) No growth in 5 days HCG, QUANTITATIVE, [id number] 15:37:00 Test Item Value Reference Range Comments GONADOTROPIN, CHORIONIC (HCG) QUANT (MopedAKER) 12467 mIU/mL 0-10 (test mjzc=427) Non- Females: <10 mIU/mL Females: Gestation Age Reference Range(mIU/mL) 0.2-1 Week 5-50 1-2 Weeks 50-500 2-3 Weeks 100-5,000 3-4Weeks 500-10,000 4 -5 Weeks 1,000-50,000 5-6 Weeks 10,000-100,000 6-8 Weeks 15,000-200,000 2-3 Months 10,000-100,000COMPREHENSIVE METABOLIC [id number] 15:10:00 Test Item Value Reference Range Comments TOTAL PROTEIN (BEAKER) 7.0 gm/dL 6.0-8.3 (test iulm=952) ALBUMIN (BEAKER) (test 3.9 g/dL 3.5-5.0 cobx=3142) ALKALINE PHOSPHATASE 50 U/L 40-150 (BEAKER) (test gizl=480) BILIRUBIN TOTAL (BEAKER) 0.5 mg/dL 0.2-1.2 (test xrot=617) SODIUM (BEAKER) (test 140 meq/L 136-145 tmae=468) POTASSIUM (BEAKER) (test 3.4 meq/L 3.5-5.1 rknj=849) CHLORIDE (BEAKER) (test 107 meq/L 98-107 bxlb=236) CO2 (BEAKER) (test 21 meq/L 22-29 tkmk=354) BLOOD UREA NITROGEN 6 mg/dL 7-21 (BEAKER) (test nwzy=074) CREATININE (BEAKER) (test 0.54 mg/dL 0.57-1.25 ojak=389) GLUCOSE RANDOM (BEAKER) 76 mg/dL 70-105 (test hytb=658) CALCIUM (BEAKER) (test 9.2 mg/dL 8.4-10.2 phly=472) AST (SGOT) (BEAKER) (test 57 U/L 5-34 dhtx=113) ALT (SGPT) (BEAKER) (test 84 U/L 6-55 qplb=150) EGFR (BEAKER) (test 135 mL/min/1.73 sq ESTIMATED GFR IS NOT fkjg=6858) m ACCURATE CREATININE CLEARANCE IN PREDICTING GLOMERULAR FILTRATION RATE. ESTIMATED GFR IS NOT APPLICABLE FOR DIALYSIS PATIENTS. CBC W/PLT COUNT & AUTO [id number] 14:53:00 Test Item Value Reference Range Comments WHITE BLOOD CELL COUNT (BEAKER) (test omkl=311) 9.7 K/ L 3.5-10.5 RED BLOOD CELL COUNT (BEAKER) (test onwq=914) 4.31 M/ L 3.93-5.22 HEMOGLOBIN (BEAKER) (test msvi=022) 10.0 GM/DL 11.2-15.7 HEMATOCRIT (BEAKER) (test twic=791) 31.9 % 34.1-44.9 MEAN CORPUSCULAR VOLUME (BEAKER) (test edff=478) 74.0 fL 79.4-94.8 MEAN CORPUSCULAR HEMOGLOBIN (BEAKER) (test 23.2 pg 25.6-32.2 aadt=081) MEAN CORPUSCULAR HEMOGLOBIN CONC (BEAKER) (test 31.3 GM/DL 32.2-35.5 mafz=672) RED CELL DISTRIBUTION WIDTH (BEAKER) (test 19.0 % 11.7-14.4 dojx=608) PLATELET COUNT (BEAKER) (test clqi=309) 259 K/CU MM 150-450 MEAN PLATELET VOLUME (BEAKER) (test hyaa=895) 9.9 fL 9.4-12.3 NUCLEATED RED BLOOD CELLS (BEAKER) (test 0 /100 WBC 0-0 ccsm=404) NEUTROPHILS RELATIVE PERCENT (BEAKER) (test 70 % ulwf=989) LYMPHOCYTES RELATIVE PERCENT (BEAKER) (test 21 % mbcp=960) MONOCYTES RELATIVE PERCENT (BEAKER) (test 8 % hmfn=129) EOSINOPHILS RELATIVE PERCENT (BEAKER) (test 1 % vyga=408) BASOPHILS RELATIVE PERCENT (BEAKER) (test 1 % hoqf=499) NEUTROPHILS ABSOLUTE COUNT (BEAKER) (test 6.75 K/ L 1.56-6.13 zxcs=085) LYMPHOCYTES ABSOLUTE COUNT (BEAKER) (test 2.01 K/ L 1.18-3.74 kjty=252) MONOCYTES ABSOLUTE COUNT (BEAKER) (test 0.75 K/ L 0.24-0.36 qhof=714) EOSINOPHILS ABSOLUTE COUNT (BEAKER) (test 0.07 K/ L 0.04-0.36 wluk=521) BASOPHILS ABSOLUTE COUNT (BEAKER) (test 0.08 K/ L 0.01-0.08 lmjt=822) IMMATURE GRANULOCYTES-RELATIVE PERCENT (BEAKER) 0 % 0-1 (test vyzr=6932) U/S, , FIRST [id number] 07:52:00Reason for exam:-> Reason for exam:->please include [...] 1 day. An embryonic pole is evident. [place]-rump length measures 0.63 cm, correlating with [...] MDReport Verified Date/Time: 05/17/2017 07:52:37 Reading Location: [address] Consult Reading Room PREGNANCY SCREEN, [id number] 05:28:00 Test Item Value Reference Range Comments TEST URINE (BEAKER) (test fdju=525) Positive MR, BRAIN, WITHOUT [id number] 18:54:00Reason for exam:->Stroke evaluationFINAL REPORT MRI brain [...] Verified Date/Time: 05/15/2017 18 :54:11 Reading Location: [facility] Reading Room EEG AWAKE AND [id number] 12:08:00Reason for exam:->? nonconvulsive statusDATE OF TEST: 2016DATE OF REPORT 05/15/2017 ACC: [id number] EE Start time: 1034 Stop time: 105 ICD-10: R56.9CPT Code: 04518VMEHJTX: 26 y/o woman with epilepsy found down [...] recordings.Marika Smith M.D.Neurophysiology FellowSwathi Harper M.D.Neurophysiology Attending [id number] 04:27:00 Test Item Value Reference Range Comments PROCALCITONIN (BEAKER) (test rgwp=3172) 0.17 ng/mL <0.05 SEPSIS RISK (ng/mL)Low: 0.05-0.50Intermediate: 0.51-2.00High: & gt;=[id number] 03:15:00 Test Item Value Reference Range Comments PHOSPHORUS (BEAKER) (test xzne=869) 3.1 mg/dL 2.3-4.7 [id number] 03:15:00 Test Item Value Reference Range Comments MAGNESIUM (BEAKER) (test jowu=450) 1.9 mg/dL 1.6-2.6 BASIC METABOLIC [id number] 03:15:00 Test Item Value Reference Range Comments SODIUM (BEAKER) (test 139 meq/L 136-145 ryde=755) POTASSIUM (BEAKER) (test 3.7 meq/L 3.5-5.1 xtip=372) CHLORIDE (BEAKER) (test 110 meq/L 98-107 jxht=746) CO2 (BEAKER) (test 19 meq/L 22-29 xdeq=962) BLOOD UREA NITROGEN 8 mg/dL 7-21 (BEAKER) (test lkrc=847) CREATININE (BEAKER) (test 0.57 mg/dL 0.57-1.25 uwtq=533) GLUCOSE RANDOM (BEAKER) 92 mg/dL 70-105 (test ftle=540) CALCIUM (BEAKER) (test 9.2 mg/dL 8.4-10.2 erhf=322) EGFR (BEAKER) (test 127 mL/min/1.73 sq m ESTIMATED GFR IS NOT aaer=2959) ACCURATE CREATININE CLEARANCE IN PREDICTING GLOMERULAR FILTRATION RATE. ESTIMATED GFR IS NOT APPLICABLE FOR DIALYSIS PATIENTS. CREATINE KINASE (CK)2017-05-15 03:15:00 Test Item Value Reference Range Comments CREATINE KINASE TOTAL (BEAKER) (test pvvs=665) 200 U/L 29-200 LACTIC ACID, VENOUS, WHOLE [id number] 03:09:00 Test Item Value Reference Range Comments LACTATE BLOOD VENOUS (2) (BEAKER) (test 0.6 mmol/L 0.5-2.2 zigj=6827) Effective 10/17/2015: Units/Reference Range ChangeNew: 0.5-2.2 mmol/L Previous: 5 -20 mg/dLPROTHROMBIN TIME/[id number] 03:07:00 Test Item Value Reference Range Comments PROTIME (BEAKER) (test sqbw=642) 14.5 seconds 11.7-14.7 INR (BEAKER) (test myds=870) 1.1 <=5.9 RECOMMENDED COUMADIN/WARFARIN INR THERAPY RANGESSTANDARD DOSE: 2.0 - 3.0 Includes: PROPHYLAXIS forvenous thrombosis, systemic embolization; TREATMENT for venous thrombosis and/or pulmonary embolus.HIGH RISK: Target INR is 2.5-3.5 for patients with mechanical heart valves.CBC W/PLT COUNT & AUTO [id number] 03:00:00 Test Item Value Reference Range Comments WHITE BLOOD CELL COUNT (BEAKER) (test ozts=529) 21.6 K/ L 3.5-10.5 RED BLOOD CELL COUNT (BEAKER) (test whdr=238) 4.04 M/ L 3.93-5.22 HEMOGLOBIN (BEAKER) (test nyjw=195) 9.3 GM/DL 11.2-15.7 HEMATOCRIT (BEAKER) (test cqeh=048) 30.1 % 34.1-44.9 MEAN CORPUSCULAR VOLUME (BEAKER) (test hakv=597) 74.5 fL 79.4-94.8 MEAN CORPUSCULAR HEMOGLOBIN (BEAKER) (test 23.0 pg 25.6-32.2 exuo=680) MEAN CORPUSCULAR HEMOGLOBIN CONC (BEAKER) (test 30.9 GM/DL 32.2-35.5 wzco=583) RED CELL DISTRIBUTION WIDTH (BEAKER) (test 19.3 % 11.7-14.4 rmfn=747) PLATELET COUNT (BEAKER) (test hyex=735) 250 K/CU MM 150-450 MEAN PLATELET VOLUME (BEAKER) (test etmf=959) 10.3 fL 9.4-12.3 NUCLEATED RED BLOOD CELLS (BEAKER) (test 0 /100 WBC 0-0 mwel=210) NEUTROPHILS RELATIVE PERCENT (BEAKER) (test 83 % lnar=728) LYMPHOCYTES RELATIVE PERCENT (BEAKER) (test 9 % pcha=691) MONOCYTES RELATIVE PERCENT (BEAKER) (test 8 % xrpx=818) EOSINOPHILS RELATIVE PERCENT (BEAKER) (test 0 % zwca=241) BASOPHILS RELATIVE PERCENT (BEAKER) (test 0 % orwy=295) NEUTROPHILS ABSOLUTE COUNT (BEAKER) (test 17.85 K/ L 1.56-6.13 ppjl=660) LYMPHOCYTES ABSOLUTE COUNT (BEAKER) (test 1.98 K/ L 1.18-3.74 zyba=078) MONOCYTES ABSOLUTE COUNT (BEAKER) (test 1.62 K/ L 0.24-0.36 eosu=464) EOSINOPHILS ABSOLUTE COUNT (BEAKER) (test 0.01 K/ L 0.04-0.36 ardt=386) BASOPHILS ABSOLUTE COUNT (BEAKER) (test 0.04 K/ L 0.01-0.08 etfw=768) IMMATURE GRANULOCYTES-RELATIVE PERCENT (BEAKER) 1 % 0-1 (test dwct=5967) RAD, CHEST, 1 VIEW, NON [id number] 01:06:00Reason for exam:->possible infectionShould this be performed [...] MDReport Verified Date/Time: 2016 01:06:06 Reading Location: [address] Reading Room
--- OUTSIDE RECORDS SUMMARY | 2019-08-21 13:28 | XMS REPORT | Summary of Care ---
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 [address] [place] [address] Reason for Visit Reason Comments Vaginal Bleeding on-going for 3 weeks Encounter Details Date Type Department Care Team Description 08/10/2019 Office Visit [facility] Women's Daina Adam, Abnormal vaginal bleeding (Primary Dx); [facility]- Hany MENDOZA Papanicolaou smear of cervix with low grade squamous intraepithelial lesion ( LGSIL); [address] [place] [address] Iron deficiency anemia, unspecified iron deficiency anemia type; [address] Dr. Osborn [facility] 208 [address] [place], [place] [phone] [address] Allergies No Known Allergiesdocumented as of this encounter (statuses as of 08/10/2019) Medications Medication Sig Dispensed Refills Start Date End Date Status levETIRAcetam 750 mg Take 2 60 tablet 2 12/14/2017 Active tablet tablets by mouth 2 (two) times daily. ibuprofen 600 mg Take 1 tablet 60 tablet 2 11/19/2018 Active tabletIndications: by mouth Breakthrough bleeding on every 6 (six) depo provera hours as needed for Pain (scale 1-3) or Pain (scale 4-6). perampanel 4 mg Tab Take 4 mg by 0 Active mouth 2 (two) times daily. rufinamide (BANZEL) 400 mg Take 1 tablet 30 tablet 4 02/04/2019 Active tabletIndications: by mouth 2 Recurrent seizures (two) times daily with meals. fluoxetine HCl (PROZAC Take by 0 Active ORAL) mouth. medroxyPROGESTERone 10 mg Take 1 tablet 10 tablet 0 08/10/2019 08/20/2019 Active tabletIndications: by mouth Abnormal vaginal bleeding daily for 10 days. documented as of this encounter (statuses as of 08/10/2019) Active Problems Problem Noted Date Abnormal vaginal bleeding 08/10/2019 Seizure 02/03/2019 Obesity, unspecified classification, unspecified obesity type, unspecified whether serious comorbidity present BMI 27.0-27.9,adult 05/12/2018 Well woman exam 05/12/2018 Encounter for contraceptive management, unspecified type 05/12/2018 Corpus luteum cyst or hematoma 03/10/2018 Papanicolaou smear of cervix with low grade squamous intraepithelial 2017 lesion (LGSIL) Status epilepticus 06/14/2017 Seizures 06/13/2017 documented as of this encounter (statuses as of 08/10/2019) Resolved Problems Problem Noted Date Resolved Date [...] as of this encounter (statuses as of 08/10/2019) Immunizations Name Administration Dates Next Due Influenza Virus Vaccine Quad IM 3+ YRS 06/22/2017 Rho (d) Immune Globulin 12/13/2017, 12/21/2009 Tdap 10/22/2017 documented as of this encounter Social History Tobacco Use Types Packs/Day Years Used Date Former Smoker Smokeless Tobacco: Never Used Alcohol Use [...] Sign Reading Time Taken Comments Blood Pressure 126/81 08/10/2019 2:34 PM ROPE TIER Pulse 97 08/10/2019 2:34 PM ROPE TIER Temperature 36.9 C (98.4 F) 08/10/2019 2:34 PM ROPE TIER Respiratory Rate 18 08/10/2019 2:34 PM ROPE TIER Oxygen Saturation - - Inhaled Oxygen Concentration - - Weight 66.2 kg (146 lb) 08/10/2019 2:34 PM ROPE TIER Height 160 cm (5' 3") 08/10/2019 2:34 PM ROPE TIER Body Mass Index 25.86 08/10/2019 2:34 PM ROPE TIER documented in this encounter Progress Notes Daina Adam MD - 08/10/2019 2:00 PM CST Chief complaint: Chief Complaint Patient presents with Vaginal Bleeding on-going for 3 weeks 28 year-old present today for evaluation of abnormal vaginal bleeding ongoing since 07/17/2019. Bleeding is heavy with clots and painful, she wears at least 2 pads at a time and soaks through them. Her is known to have seizure disorder and reports that she has more seizure episodes( despite taking her medication, Keppra) since the bleeding started, necessitating visits to ER, her last visit [facility] ER. Her cycles are regular- although she is known to have heavier periods, she has never bled for this length of time and reports that her period in Jun was normal. She was on Depo Provera last year but had to stop due to continual breakthrough bleeding, last depo shot was Mar last year. Lab work done yesterday, which I reviewed ( BMP and CBC ) showed Iron deficiency anemia with a hemoglobin of 9 g/dl. Patient reports that she would like a hysterectomy as she is sure she has completed her family. She denies any abnormal vaginal discharge, reports being a stable relationship. Her last pap smear was abnormal in Jun 2018, LGSIL s/p normal colposcopy per patient. Histories Past Medical History: Diagnosis Date Chlamydia infection affecting 06/23/2017 Corpus luteum cyst or hematoma 03/10/2018 Pap smear abnormality of cervix 06/22/2017 Seizures 2006 Started having seizures at 13 y/o; currently on Keppra; last episode 05/06/18 Family History Problem Relation Age of Onset Hypertension Mother Cancer Maternal Grandmother Cancer Maternal Grandfather Other - see comments Paternal Grandmother MS Arthritis NoFHx Asthma NoFHx defects NoFHx Breast Cancer NoFHx Colon Cancer NoFHx Ovarian Cancer NoFHx Uterine Cancer NoFHx Depression NoFHx Diabetes NoFHx Genetic NoFHx Heart NoFHx High cholesterol NoFHx Mental retardation NoFHx Neurological NoFHx Psychiatry NoFHx Osteoporosis NoFHx Family Status Relation Name Status Mo Alive Fa Alive MGMo MGFa PGMo (Not Specified) NoFHx (Not Specified) Past Surgical History: Procedure Laterality Date OBSTETRICAL CARE,VAG DELIV ONLY 12/21/2009 Social History Socioeconomic History Marital status: Single Spouse name: Gee Goodwin Number of children: 1 Years of education: Not on file Highest education level: Some college, no degree Occupational History Not on file Social Needs Financial resource strain: Patient refused Food insecurity: Worry: Patient refused Inability: Patient refused Transportation needs: Medical: Patient refused Non-medical: Patient refused Tobacco Use Smoking status: Former Smoker Smokeless tobacco: Never Used Substance and Sexual Activity Alcohol use: No Drug use: No Sexual activity: Not Currently Partners: Male control/protection: None Lifestyle Physical activity: Days per week: Not on file Minutes per session: Not on file Stress: Not on file Relationships Social connections: Talks on phone: Not on file Gets together: Not on file Attends anabaptism service: Not on file Active member of club or organization: Not on file Attends meetings of clubs or organizations: Not on file Relationship status: Not on file Intimate partner violence: Fear of current or ex partner: Not on file Emotionally abused: Not on file Physically abused: Not on file Forced sexual activity: Not on file Other Topics Concern Not on file Social History Narrative Patient denies abuse or domestic violence. Social History Substance and Sexual Activity Sexual Activity Not Currently Partners: Male control/protection: None Labs No new labs Radiology No new radiology. Allergies Heather has No Known Allergies. Medications Heather has a current medication list which includes the following prescription( s): fluoxetine hcl, medroxyprogesterone, levetiracetam, rufinamide, perampanel, and ibuprofen. Review of Systems Constitutional: Negative. HENT: Negative. Eyes: Negative. Respiratory: Negative. Breasts: Negative. Cardiovascular: Negative. Gastrointestinal: Negative. Genitourinary: Positive for vaginal bleeding and menstrual problem. Musculoskeletal: Negative. Skin: Negative. Neurological: Negative. Psychiatric/Behavioral: Negative. Endocrine: Endocrine negative BP 126/81 (BP Location: Left arm, Patient Position: Sitting, BP CUFF SIZE: Adult Medium) | Pulse 97 | Temp 36.9 C (98.4 F) (Oral) | Resp 18 | Ht 5' 3" (1.6 m) | Wt 146 lb (66.2 kg) | LMP 07/17/2019 | BMI 25.86 kg/m Pregravid BMI: Could not be calculated Physical Exam Vitals reviewed. Constitutional: She is oriented to person, place, and time. She appears well- developed and well-groomed. Abdominal: Abdomen is soft. No mass palpated. No tenderness present. There is no rigidity and no guarding. Neuro/Psychiatric: Patient looked sleepy- reports that she is tired She is oriented to person, place, and time. External genitalia: Normal external genitalia appropriate for age. Urethral meatus: Normal urethral meatus Urethra: Normal urethra. Bladder: Normal bladder Vagina:Vaginal discharge (moderate amount of blood in the fonix with dim sized clots) found. Cervix: Normal cervix. Small clot at cervical os. Os closed Uterus: Uterus is normal size (less than 8 weks size, anteverted and slightly tender), normal contour and normal position. Normal uterus Adnexa: Right adnexa without tenderness or mass. Left adnexa without tenderness or mass. Assessment/Plan Abnormal vaginal bleeding (primary encounter diagnosis) Comment: Discussed the various etiologies of abnormal uterine bleeding, including polyps, fibroids,hyperplasia or atypia, anovulation, adenomyosis etc. Evaluation will typical evaluation usually include pelvic US, sonohysterogram and endometrial biopsyas indicated. UPT in the office was negative today. I ordered a pelvic sonogram, TSH and also screened her infection. Progestin prescribed for short term. We discussed Mirena IUD- as I think she would be a good candidate for it especially if the pelvic sonogram is normal. Information provided. Plan: [facility] ONLY - VAGINAL PATHOGENS BY DNA PROBE, GC & CHLAMYDIA AMPLIFIED ASSAY, THYROID STIMULATING HORMONE, medroxyPROGESTERone 10 mg tablet, US PELVIS COMPLETE WITH TRANSVAGINAL Seizures Comment: Recommend contacting her neurologist, Dr Cleveland about the increased frequency of seizures. Papanicolaou smear of cervix with low grade squamous intraepithelial lesion ( LGSIL) Needs a pap smear at next visit- I was unable to perform one today. I recommend that she is seen in 1-2 weeks for review of her sonogram and also for an annual examination. Iron deficiency anemia, unspecified iron deficiency anemia type Start daily Iron supplements, OTC with increased fibre to reduce risk of constipation. Daina Adam MD 08/10/2019 4:00 PM documented in this encounter Plan of Treatment Date Type Specialty Care Team Description 08/24/2019 Office Visit Obstetrics & Gynecology Daina Adam MD [address] [place] [address] [place] [phone] Name Type Priority Associated Diagnoses Order Schedule [facility] ONLY - VAGINAL LAB Routine Abnormal vaginal Ordered: 08/10/2019 PATHOGENS BY DNA PROBE bleeding GC & CHLAMYDIA AMPLIFIED LAB Routine Abnormal vaginal Ordered: 08/10/2019 ASSAY bleeding THYROID STIMULATING LAB Routine Abnormal vaginal Expected: 08/11/2019 HORMONE bleeding (Approximate), Expires: 11/08/2019 US PELVIS COMPLETE WITH IMAGING Routine Abnormal vaginal Expected: TRANSVAGINAL bleeding 08/10/2019, Expires: 08/10/2020 Health Maintenance Due Date Last Done Comments INFLUENZA VACCINE (#1) 2019 06/22/2017 PAP SMEAR 07/13/2021 07/13/2018, 06/22/2017 DTaP,Tdap,and Td Vaccines (2 10/23/2027 10/22/2017 - Td) PNEUMOCOCCAL 0-64 YEARS Aged Out No longer eligible based COMBINED SERIES on patient's age to complete this topic documented as of this encounter Results Not on filedocumented in this encounter Visit Diagnoses Diagnosis Abnormal vaginal bleeding - Primary Other specified noninflammatory disorder of vagina Papanicolaou smear of cervix with low grade squamous intraepithelial lesion ( LGSIL) Iron deficiency anemia, unspecified iron deficiency anemia type Seizures Other convulsions documented in this encounter documented as of this encounter
--- OUTSIDE RECORDS SUMMARY | 2019-08-21 13:28 | XMS REPORT | Summary of Care ---
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 documented as of this encounter (statuses as of 08/10/2019) Active Problems Problem Noted Date Seizure 02/03/2019 [...] encounter Procedures Procedure Name Priority Date/Time Associated Diagnosis Comments ASSIGNMENT OF BENEFITS Routine 08/10/2019 2:10 PM CHECKING CLERK documented in this encounter Results Not on filedocumented in this encounter Insurance Payer Benefit Plan / Group Subscriber ID Effective Dates Phone Address Type EDELMIRA CIGERLINDA II [id number] 2017-Present HMO/PPO/POS documented as of this encounter
--- OUTSIDE RECORDS SUMMARY | 2019-08-21 13:28 | XMS REPORT | Summary of Care ---
:[address] [facility] Address [address] [place] [address] Care Team Providers Name Role Phone Doctor Unassigned, 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 metroNIDAZOLE 500 mg Take 1 tablet 14 tablet 0 08/12/2019 08/19/2019 Active tabletIndications: BV by mouth 2 (bacterial vaginosis) (two) times daily for 7 days. documented as of this encounter (statuses as of 08/12/2019) Active Problems Problem Noted Date Abnormal vaginal [...] as of this encounter (statuses as of 08/12/2019) Resolved Problems Problem Noted Date Resolved Date [...] as of this encounter (statuses as of 08/12/2019) Immunizations Name Administration Dates Next Due Influenza [...] on filedocumented in this encounter Progress Notes Daina Adam MD - 08/12/2019 8:15 AM CSTPositive BV. Metronidazole prescribed. Patient notified by staff documented in this encounter Plan of Treatment Date Type Specialty Care Team Description 08/24/2019 Office Visit Obstetrics & Gynecology Daina Adam MD [address] [place] [address] [place] [address] Health Maintenance Due Date Last Done Comments INFLUENZA VACCINE (#1) 2019 06/22/2017 PAP SMEAR 07/13/2021 07/13/2018, 06/22/2017 DTaP,Tdap,and Td Vaccines (2 10/23/2027 10/22/2017 - Td) PNEUMOCOCCAL 0-64 YEARS Aged Out No longer eligible based COMBINED SERIES on patient's age to complete this topic documented as of this encounter Results Not on filedocumented in this encounter Visit Diagnoses Diagnosis BV (bacterial vaginosis) - Primary Vaginitis and vulvovaginitis, unspecified documented in this encounter Insurance Payer Benefit Plan / Group Subscriber ID Effective Dates Phone Address Type EDELMIRA HICKEY II [id number] 2017-Present HMO/PPO/POS documented as of this encounter
--- OUTSIDE RECORDS SUMMARY | 2019-08-21 13:28 | XMS REPORT | Summary of Care ---
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 [address] [place] [address] Reason for Visit Reason Comments Vaginal Bleeding on-going for 3 weeks Encounter Details Date Type Department Care Team Description 08/10/2019 Office Visit [facility] Women's Daina Adam, Abnormal vaginal bleeding (Primary Dx); [facility]- Hany MENDOZA Papanicolaou smear of cervix with low grade squamous intraepithelial lesion ( LGSIL); [address] [place] [address] Iron deficiency anemia, unspecified iron deficiency anemia type; [address] Dr. [facility] 208 [address] [place], [place] [phone] [address] Allergies No Known Allergiesdocumented as of [...] Comments Blood Pressure 126/81 08/10/2019 2:34 PM DOOR FRAMER Pulse 97 08/10/2019 2:34 PM DOOR FRAMER Temperature 36.9 C (98.4 F) 08/10/2019 2:34 PM DOOR FRAMER Respiratory Rate 18 08/10/2019 2:34 PM DOOR FRAMER Oxygen Saturation - - Inhaled Oxygen Concentration - - Weight 66.2 kg (146 lb) 08/10/2019 2:34 PM DOOR FRAMER Height 160 cm (5' 3") 08/10/2019 2:34 PM DOOR FRAMER Body Mass Index 25.86 08/10/2019 2:34 PM DOOR FRAMER documented in this encounter Progress Notes Daina [...] ER, [facility]. Her cycles are regular- although [...] file Gets together: Not on file Attends religion service: Not on file Active member of [...] Visit Obstetrics & Gynecology Daina Adam MD [address] [place] [address] [place] [phone] Name Type Priority Associated Diagnoses Order Schedule [...]
--- OUTSIDE RECORDS SUMMARY | 2019-08-21 13:29 | XMS REPORT | Summary of Care ---
:1990 Author Organization [facility] Address [address] [place] [address] Care Team Providers Name Role Phone Doctor Unassigned, [place] Insurance Hmo Unavailable [facility] Primary Care Provider Fanny Damian welt sewer Unavailable Reason for Visit Reason Comments Notification patient wishes to cancel u/s appointment Encounter Details Date Type Department Care Team Description 08/12/2019 Telephone [facility] Women's AdDaina salvador MD Notification (patient Healthcare- [address] wishes to cancel u/s [address] [place] [address], [address] appointment) [address] [place] [phone] Allergies No Known Allergiesdocumented as of this encounter (statuses as of 08/17/2019) Medications Medication Sig Dispensed Refills Start Date [...] as of this encounter (statuses as of 08/17/2019) Active Problems Problem Noted Date Abnormal vaginal [...] as of this encounter (statuses as of 08/17/2019) Resolved Problems Problem Noted Date Resolved Date [...] as of this encounter (statuses as of 08/17/2019) Immunizations Name Administration Dates Next Due Influenza [...] filedocumented in this encounter Plan of Treatment Date Type Specialty Care Team Description 08/17/2019 Appointment Radiology Daina Adam MD [address] [place] [address] Dr. Bueno [address] [place] [phone] 08/24/2019 Office Visit Obstetrics & Gynecology Daina Adam MD [address] [place] [address] [place] [phone] Health Maintenance Due Date Last Done Comments [...] Dates Phone Address Type EDELMIRA HICKEY II [id number] 2017-Present HMO/PPO/POS documented as of this encounter
[2019-08-21 15:27] LABS: Absolute Lymphocytes (CBC) 1.3 K/uL (0.7-4.9); Basophils % 0.5 % (0-1.3); Hematocrit 22.5 % (36.0-45.0); Lymphocytes % 18.8 % (15.3-44.8); MPV 7.8 fL (7.6-11.3)
[2019-08-21 15:38] LABS: BUN Blood Urea Nitrogen 9 mg/dL (7-18); Bicarbonate 23 mmol/L (21-32); Glucose Level 87 mg/dL (74-106); Potassium 3.8 mmol/L (3.5-5.1); Sodium Level 138 mmol/L (136-145)
[2019-08-21] MEDS ORDERED: NA CHLORIDE 0.9% 1,000 ML ONE (16:00)
[2019-08-21] MEDS ORDERED: ONDANSETRON 4 MG/2 ML VIAL ONE (16:00)
[2019-08-21] MEDS ORDERED: NA CHLORIDE 0.9% 500 ML ONE (19:50)
--- NOTE | 2019-08-21 20:05 | EDPHYS ---
Physician Documentation [facility] Name: Heather Hope Age: 28 yrs Sex: Female : 1990 Arrival Date: 08/21/2019 Time: 13:26 Bed 8 Private MD: ED Physician Moi Avalos HPI: 08/20 15:13 This 28 yrs old Female presents to ER via Ambulatory with complaints of la1 Probable Seizure, Vaginal Bleeding. 15:13 The patient presents with a history of multiple seizures, pt reports she has had an la1 increase in the number of seizures that she has for the last week. Pt reports she usually has them once a month but has been having them daily for the last week. . Character of seizure(s): Loss of consciousness: it is not known if the patient experienced loss of consciousness, Motor activity: generalized. Context: the seizure(s) was witnessed, by family. Current symptoms: Currently, the patient is not experiencing any symptoms. The patient has experienced similar episodes in the past. pt had an EEG with Dr. montgomery about three weeks ago which she reports did not show anything. Has had two negative ct head WO contrast here in the last two months. PT states she would really like a place to stay for the next few days. Pt is requesting transfer to another acute care for a new neurologist to evaluate her sz disorder. After discussing the requirements that need to be met for emergent transfer pt then asked is there was a mental hospital we could send her to for a few days. When asked if pt is Suicidal she denies but states she has been in the past. Pt is unhappy that when she has workups when nothing is found that she is discharged. 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 - Social history:: Smoking status: unknown. ROS: 15:22 Constitutional: Negative for fever, chills, and weight loss, Eyes: Negative for injury, la1 pain, redness, and discharge, ENT: Negative for injury, pain, and discharge, Neck: Negative for injury, pain, and swelling, Cardiovascular: Negative for chest pain, palpitations, and edema, Respiratory: Negative for shortness of breath, cough, wheezing, and pleuritic chest pain. 15:22 Back: Negative for injury and pain. 15:22 MS/Extremity: Negative for injury and deformity. 15:22 Abdomen/GI: Positive for nausea. 15:22 : Positive for vaginal bleeding. 15:22 Neuro: Positive for seizure activity, Negative for altered mental status, dizziness, hearing loss, speech changes, tinnitus. 15:22 Psych: Negative for alcohol dependence, auditory hallucinations, visual hallucinations, homicidal ideation, suicide gesture, suicidal ideation. Exam: 15:23 Constitutional: This is a well developed, well nourished patient who is awake, alert, la1 and in no acute distress. Head/Face: Normocephalic, atraumatic. Eyes: Pupils equal round and reactive to light, extra-ocular motions intact. Lids and lashes normal. Conjunctiva and sclera are non-icteric and not injected. Cornea within normal limits. Periorbital areas with no swelling, redness, or edema. ENT: Mucous membranes moist. Neck: Trachea midlineSupple, full range of motion without nuchal rigidity, or vertebral point tenderness. No Meningismus. Chest/axilla: Normal chest wall appearance and motion. Nontender with no deformity. No lesions are appreciated. Cardiovascular: Regular rate and rhythm with a normal S1 and S2. No gallops, murmurs, or rubs. Normal PMI, no JVD. No pulse deficits. Respiratory: Lungs have equal breath sounds bilaterally, clear to auscultation Abdomen/GI: Soft, non-tender, with normal bowel sounds. No distension or tympany. No guarding or rebound. No evidence of tenderness throughout. Back: No spinal tenderness. No costovertebral tenderness. Full range of motion. Skin: Warm, dry with normal turgor. Normal color with no rashes, no lesions, and no evidence of cellulitis. MS/ Extremity: Pulses equal, no cyanosis. Neurovascular intact. Full, normal range of motion. Neuro: Awake and alert, GCS 15, oriented to person, place, time, and situation. Cranial nerves II-XII grossly intact. Motor strength 5/5 in all extremities. Sensory grossly intact. Cerebellar exam normal. Normal gait. Vital Signs: 13:30 BP 129 / 86; Pulse 100; Resp 18; Temp 98.9; Pulse Ox 98% on R/A; Weight 63.5 kg; Height ph 5 ft. 3 in. (160.02 cm); 14:50 BP 120 / 77; Pulse 100; Resp 18; Pulse Ox 100% on R/A; aj1 15:50 BP 119 / 73; Pulse 90; Resp 18; Pulse Ox 100% on R/A; aj1 16:50 BP 130 / 82; Pulse 111; Resp 18; Pulse Ox 100% on R/A; aj1 17:45 BP 130 / 82; Pulse 112; Resp 20; Pulse Ox 100% on R/A; aj1 18:41 BP 131 / 77; Pulse 90; Resp 17; Pulse Ox 100% on R/A; aj1 20:15 BP 125 / 89; Pulse 94; Resp 16; Pulse Ox 99% on R/A; rv 22:36 BP 121 / 75; Pulse 96; Resp 17; Temp 98; Pulse Ox 100% on R/A; rv 13:30 Body Mass Index 24.80 (63.50 kg, 160.02 cm) ph Thomas Coma Score: 20:16 Eye Response: spontaneous(4). Verbal Response: oriented(5). Motor Response: obeys rv commands(6). Total: 15. MDM: 13:54 Patient medically screened. la1 20:00 Data reviewed: vital signs, nurses notes, lab test result(s), I have discussed the la1 patient's presentation/case with the attending Emergency Department Physician; and as a result, I will admit patient. Data interpreted: Pulse oximetry: on room air is 100 %. Counseling: I had a detailed discussion with the patient and/or guardian regarding: the historical points, exam findings, and any diagnostic results supporting the discharge/admit diagnosis, lab results, the need for further work-up and treatment in the hospital. ED course: pt hgb was 7.2, still having active mild vaginal bleeding and reporting feeling very tired. Attempted to transfuse in the ED but pt had many antibodies and it would take about 5 hours to get the blood and then longer to transfuse. Discussed case with hospitalist who was willing to admit her as an obs patient for anemia and a transfusion. This was discussed with the patient who verbally agreed with the plan of care. 08/20 15:19 Order name: Basic Metabolic Panel; Complete Time: 15:49 [facility] 08/20 15:19 Order name: CBC with Automated Diff; Complete Time: 15:49 [facility] 08/20 15:59 Order name: Urine --Ancillary (enter results) eb 08/20 16:47 Order name: Type and Screen [facility] 08/20 20:14 Order name: CBC w/o diff ls4 08/20 20:58 Order name: Ferritin [facility] 08/20 20:58 Order name: Transferrin Sat/Iron Binding [facility] 08/20 21:09 Order name: Packed RBC Leukored [facility] 08/20 14:34 Order name: IV Saline Lock; Complete Time: 15:02 [facility] 08/20 14:34 Order name: Labs collected and sent; Complete Time: 15:02 [facility] 08/20 14:34 Order name: Urine Dipstick-Ancillary (obtain specimen); Complete Time: 16:31 [facility] 08/20 14:34 Order name: Urine Test (obtain specimen); Complete Time: 16:31 [facility] 08/20 20:57 Order name: CONS Pharmacy Consult [facility] 08/20 20:58 Order name: CONS Physician Consult [facility] 08/20 20:58 Order name: CONS Physician Consult [facility] 08/20 20:58 Order name: Regular EDMS Administered Medications: 16:15 Drug: NS 0.9% 1000 ml Route: IV; Rate: 1000 ml; Site: right forearm; em 19:58 Follow up: IV Status: Completed infusion; IV Intake: 1000ml rv 16:20 Drug: Zofran (Ondansetron) 4 mg Route: IVP; Site: right forearm; em 19:58 Follow up: Response: No adverse reaction rv Disposition: 08/21 07:04 Co-signature as Attending Physician, Moi Avalos MD. rn Disposition: 08/21/19 20:04 Hospitalization ordered by Yonathan Haynes for Observation. Preliminary diagnosis are Anemia, Abnormal uterine and vaginal bleeding, unspecified. - Bed requested for Telemetry/MedSurg (observation). - Status is Observation. rv - Condition is Stable. - Problem is an ongoing problem. - Symptoms are unchanged. Signatures: Dispatcher [facility] Cassidy Hall, RN RN aj1 Rayo Hernandez, RN RN Moi Casanova MD MD rn Killian Zee, LEGISLATIVE ADVOCATE-C LEGISLATIVE ADVOCATE-Cla1 Ewa Garcia RN RN ph Garcia, Cindy, RN CLAUDIA cg Aniceto See, RN RN rv Corrections: (The following items were deleted from the chart) 08/20 19:32 17:16 BASIC METABOLIC PANEL+C.LAB.BRZ ordered. [facility] EDMS 19:33 17:16 CBC+H.LAB.BRZ ordered. [facility] EDMS 19:33 17:22 TYPE AND SCREEN+BB.LAB.BRZ ordered. [facility] 21:08 20:57 Packed RBC Leukored ordered. EDNY EDNY 21:08 21:00 ABO/RH typing ordered. EDNY EDNY 21:08 21:00 Antibody Screen ordered. EDNY EDNY 21:36 20:04 Hospitalization Ordered by Yonathan Haynes MD for Observation. Preliminary cg diagnosis is Anemia; Abnormal uterine and vaginal bleeding, unspecified. Bed requested for Telemetry/MedSurg (observation). Status is Observation. Condition is Stable. Problem is an ongoing problem. Symptoms are unchanged. la1 22:37 21:36 08/21/2019 20:04 Hospitalization Ordered by Yonathan Haynes MD for Observation. rv Preliminary diagnosis is Anemia; Abnormal uterine and vaginal bleeding, unspecified. Bed requested for Telemetry/MedSurg (observation). Status is Observation. Condition is Stable. Problem is an ongoing problem. Symptoms are unchanged. cg
--- NOTE | 2019-08-21 20:05 | ER ---
Nurse's Notes [facility] Name: Heather Hope Age: 28 yrs Sex: Female : 1990 Arrival Date: 08/21/2019 Time: 13:26 Bed 8 Private MD: Diagnosis: Anemia;Abnormal uterine and vaginal bleeding, unspecified Presentation: 08/20 13:30 Chief complaint: Patient states: Having frequent seizures x 1 week, heavy vaginal ph bleeding x 1 month, reports hx of seizures, states, " I've already come here for my seizures but y'all never do anything for me, Do you think y'all can transfer me or something?". Coronavirus screen: The patient has NOT traveled to a country currently being monitored by the [facility] within the last 14 days. The patient has NOT had contact with any known and/or suspected case of coronavirus. Ebola Screen: No symptoms or risks identified at this time. Initial Sepsis Screen: Does the patient meet any 2 criteria? No. Patient's initial sepsis screen is negative. Does the patient have a suspected source of infection? No. Patient's initial sepsis screen is negative. Risk Assessment: Do you want to hurt yourself or someone else? Patient reports no desire to harm self or others. 13:30 Method Of Arrival: Ambulatory ph 13:30 Acuity: DARLYN 3 ph 20:16 Onset of symptoms is unknown. rv Triage Assessment: 20:16 General: Appears in no apparent distress. 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 - Social history:: Smoking status: unknown. Screenin:50 Abuse screen: Denies threats or abuse. Denies injuries from another. Nutritional aj1 screening: No deficits noted. Tuberculosis screening: No symptoms or risk factors identified. 20:16 Fall Risk Fall in past 12 months (25 points). Secondary diagnosis (15 points) seizures, rv IV access (20 points). Ambulatory Aid- None/Bed Rest/Nurse Assist (0 pts). Gait- Normal/Bed Rest/Wheelchair (0 pts) Mental Status- Oriented to own ability (0 pts). Total Green Fall Scale indicates Low Risk Score (25-44 pts). Fall prevention measures have been instituted. Side Rails Up X 2 Placed close to Nursing Station Frequent Obs/Assesments occuring As available Patient and Family Educated on Fall Prevention Program and strategies. Assessment: 13:50 General: Appears in no apparent distress. comfortable, Behavior is cooperative, aj1 appropriate for age, agitated. Pain: Denies pain. Neuro: Level of Consciousness is awake, alert, obeys commands, Oriented to person, place, time, situation, Moves all extremities. Full function Gait is steady, Speech is normal, Facial symmetry appears normal, Reports increased seizures, states that she has seen her neurologist Dr. German, who increased her seizure medications. Cardiovascular: Patient's skin is warm and dry. Respiratory: Airway is patent Respiratory effort is even, unlabored, Respiratory pattern is regular, symmetrical. GI: No signs and/or symptoms were reported involving the gastrointestinal system. : Reports vaginal bleeding that is bright red, States that she has seen her AGRICULTURAL SERVICE WORKER, was prescribed medication to stop the bleeding, of which she has one pill left and advised to follow up after completing the medicine if the bleeding has not stopped. EENT: No signs and/or symptoms were reported regarding the EENT system. Derm: No signs and/or symptoms reported regarding the dermatologic system. Skin is pink, warm \\T\\ dry. normal. Musculoskeletal: No signs and/or symptoms reported regarding the musculoskeletal system. Circulation, motion, and sensation intact. 14:50 Reassessment: Patient appears in no apparent distress at this time. No changes from aj1 previously documented assessment. Patient and/or family updated on plan of care and expected duration. Pain level reassessed. Patient is alert, oriented x 3, equal unlabored respirations, skin warm/dry/pink. 15:50 Reassessment: Patient appears in no apparent distress at this time. No changes from aj1 previously documented assessment. Patient and/or family updated on plan of care and expected duration. Pain level reassessed. Patient is alert, oriented x 3, equal unlabored respirations, skin warm/dry/pink. 16:45 Reassessment: Patient assisted to the restroom, voided x1, tolerated well. aj1 16:50 Reassessment: Patient appears in no apparent distress at this time. No changes from aj1 previously documented assessment. Patient and/or family updated on plan of care and expected duration. Pain level reassessed. Patient is alert, oriented x 3, equal unlabored respirations, skin warm/dry/pink. 17:00 Reassessment: Patient assisted to restroom, voided x1 tolerated well. aj1 17:45 Reassessment: Patient assisted to the restroom, voided x1, tolerated well. aj1 18:00 Reassessment: Patient requests a glass of water, patient given a glass of water. aj1 18:12 Reassessment: Patient requests a glass of water, glass of water provided. aj1 18:40 Reassessment: Patient assisted to bathroom, voided x1, tolerated well. aj1 18:52 Reassessment: Patient ambulated to the bathroom, accompanied by family. Voided x1, then aj1 returned to bed. Tolerated well. Vital Signs: 13:30 BP 129 / 86; Pulse 100; Resp 18; Temp 98.9; Pulse Ox 98% on R/A; Weight 63.5 kg; Height ph 5 ft. 3 in. (160.02 cm); 14:50 BP 120 / 77; Pulse 100; Resp 18; Pulse Ox 100% on R/A; aj1 15:50 BP 119 / 73; Pulse 90; Resp 18; Pulse Ox 100% on R/A; aj1 16:50 BP 130 / 82; Pulse 111; Resp 18; Pulse Ox 100% on R/A; aj1 17:45 BP 130 / 82; Pulse 112; Resp 20; Pulse Ox 100% on R/A; aj1 18:41 BP 131 / 77; Pulse 90; Resp 17; Pulse Ox 100% on R/A; aj1 20:15 BP 125 / 89; Pulse 94; Resp 16; Pulse Ox 99% on R/A; rv 22:36 BP 121 / 75; Pulse 96; Resp 17; Temp 98; Pulse Ox 100% on R/A; rv 13:30 Body Mass Index 24.80 (63.50 kg, 160.02 cm) ph Thomas Coma Score: 20:16 Eye Response: spontaneous(4). Verbal Response: oriented(5). Motor Response: obeys rv commands(6). Total: 15. ED Course: 13:26 Patient arrived in ED. ag5 13:28 None, None is Private Physician. ag5 13:34 Triage completed. ph 13:36 Arm band placed on Patient placed in an exam room. ph 13:39 Cassidy Hall, RN is Primary Nurse. aj1 13:50 Patient has correct armband on for positive identification. Bed in low position. Call aj1 light in reach. Side rails up X 1. 13:50 No provider procedures requiring assistance completed. aj1 13:54 Killian Zee FNP-C is PHCP. la1 13:54 Moi Avalos MD is Attending Physician. la1 15:00 Initial lab(s) drawn, by me, sent to lab. Inserted saline lock: 22 gauge in right em forearm, using aseptic technique. Blood collected. 16:25 T\\T\\S collected, blood band applied to patient. em 19:58 Repeat lab(s) drawn. by me, sent to lab. Inserted saline lock: 20 gauge in left rv forearm, using aseptic technique. Blood collected. 20:04 Yonathan Haynes MD is Hospitalizing Provider. la1 20:16 Fall risk band placed. Placed in gown. Side rails up X2. Seizure precautions initiated. rv 22:37 IV is patent, with fluids infusing freely, with good blood return, Patient admitted, IV rv remains in place. Administered Medications: 16:15 Drug: NS 0.9% 1000 ml Route: IV; Rate: 1000 ml; Site: right forearm; em 19:58 Follow up: IV Status: Completed infusion; IV Intake: 1000ml rv 16:20 Drug: Zofran (Ondansetron) 4 mg Route: IVP; Site: right forearm; em 19:58 Follow up: Response: No adverse reaction rv Intake: 19:58 IV: 1000ml; Total: 1000ml. rv Outcome: 20:04 Decision to Hospitalize by Provider. la1 22:36 Admitted to Tele accompanied by [facility], via wheelchair, room 425, with chart, Report rv called to CON TAYLOR 22:36 Condition: good 22:36 Instructed on the need for admit, Demonstrated understanding of instructions. 22:37 Patient left the ED. rv Signatures: Cassidy Hall RN RN aj1 Rayo Hernandez RN Killian Jurado, DRAFTING LAYOUT WORKER-C DRAFTING LAYOUT WORKER-Cla1 Ewa Garcia RN RN ph Vicente, Ronaldo, RN RN rv Gaskin, Ajare 5 Corrections: (The following items were deleted from the chart) 18:10 17:45 Reassessment: Patient assisted to the restroom, tolerated well aj1 aj1 18:10 17:00 Reassessment: Patient assisted to restroom, tolerated wel [place] [id number]
[2019-08-21 20:32] LABS: Urine Specific Gravity 1.025 (1.005-1.030)
[2019-08-21] MEDS ORDERED: ONDANSETRON 4 MG/2 ML VIAL IV PRN (20:49)
[2019-08-21] MEDS ORDERED: MORPHINE 2 MG/ML SYR IV PRN (20:49)
[2019-08-21] MEDS: MEDROXYPROGESTERONE 5 MG TAB PO SCH (20:54)
[2019-08-21] MEDS ORDERED: LORazepam 2 MG/ML VIAL IV PRN (20:55)
[2019-08-21 22:50] LABS: Ferritin 2.3 ng/mL (8-388)
--- NOTE | 2019-08-21 23:23 | HP ---
Date of Admission: 08/21/2019 Presenting Complaint: Weakness and feeling sick. History Of Present Illness: Ms. Heather Hope is a 28-year-old female with past medical hi story of seizure disorder, who presented because of history of recurrent seizures more frequent now s lisa the last 2 months. She was seen by Dr. German 1 week ago and has a Keppra dose adjusted. The patient says she has a seizure episode again yesterday that was witnessed by the mom. She is unable to tell if she has any postictal incontinence or actual pattern of the seizures. She also has been having vaginal bleeding since the last 2 months. She was seen in a Gynecology Clinic in [place] 10 days ago, started on medroxyprogesterone for 10 days, which she says she finished yesterday, but she still continued to pass clots in the vagina. She says she has not had any gynecological workup or ob esity in the past. She is unable to tell who her doctor that saw her at the clinic was. She is an e xtremely poor historian. She presented today because of complaining of the same recurrent seizures a nd vaginal bleed. She is unsure if she has any fever or chills. She is unsure if she has any dysuri a. On presentation, she was noted with a hemoglobin of 7.2 and was initially planned to be transfuse d 2 units and discharged from the emergency room, but she was reported by the blood bank to have mult iple antibodies and delay in transfusion. She has been admitted for observation until she is able to get PRBC. She denies any palpitations, but she has just feels unwell. She denies any recent travel . She states she has not had blood or PRBC blood transfusion in the past. Past Medical History: Seizures, recurrent seizures. Past Surgical History: Unknown. Family History: Both parents are alive, well. Allergies: THE PATIENT DENIES ANY KNOWN ALLERGIES. Home Medications: Keppra 750 b.i.d. Review of Systems: All systems reviewed x14 were negative except to complain of nausea. Physical Examination: Vital signs: Blood pressure 129/86, pulse ranging from 90 to 112, respiratory rate of 18, temperatur e 98.9, O2 saturation 98 on room air. Weight 63.5 kg. General: A young female, lying in bed, feeling drowsy, but not in any distress. Head: Atraumatic, normocephalic. Pupils equal, reactive to light. Slightly pale conjunctiva. Neck: No JVD. No carotid bruit. Respiratory: Good air entry. No crepitation. Cardiovascular: S1, S2. Rate and rhythm regular. Intermittent tachycardia. GI: Abdomen full, soft, nontender. No epigastric tenderness. No rebound tenderness. : Deferred. Rectal: Deferred. Musculoskeletal: No pedal edema. No calf tenderness. Neuro: Patient is alert, oriented. Cranial nerves 2 through 12 grossly intact. Laboratory Data: WBC 7.1, hemoglobin 7.2, platelet 403, neutrophils 73%, no bands. Sodium 138, pota ssium 3.8, bicarb 23, EGFR 90, creatinine 0.2. Urinalysis, urine test was negative. No fu ll urinalysis done. Impression: 1.Recurrent vaginal bleed. 2.Recurrent seizures, on medication. 3.Symptomatic anemia -- mild. Plan: We admit patient to observation. We await PRBC from blood bank and transfuse 2 units when blo od available. We will obtain iron level and give iron replacement if low. We will resume patient on medroxyprogesterone again since she having vaginal bleed. We will consult Gynecology, if any is michelle ilable, to evaluate patient in a.m. We will also consult Dr. German, patient's neurologist to see patient. If cleared by Neurology, the patient can be discharged home posttransfusion. We do DVT prophylaxis with SCDs. No heparin for now. We do Pepcid for GI prophyla xis. Continue to monitor patient. EO/MODL Voice ID: [id number]
[2019-08-21] MEDS: D5 0.9 NS 1,000 ML IV SCH (23:37)
[2019-08-21] MEDS: FAMOTIDINE 20 MG TAB PO SCH (23:37)
[2019-08-21] MEDS: levETIRAcetam 500 MG TAB PO SCH (23:37)
[2019-08-22 00:34] VITALS: BMI 24.6
[2019-08-22] MEDS ORDERED: ACETAMINOPHEN 325 MG TABLET PO PRN (02:27)
[2019-08-22] MEDS ORDERED: DIPHENHYDRAMINE 50 MG/ML VIAL IV PRN (02:27)
[2019-08-22] MEDS ORDERED: INFLUENZA VACCINE (for 3y+) 0.5 ML DOSE IMVAC ONE (02:46)
[2019-08-22] MEDS ORDERED: NA CHLORIDE 0.9% 250 ML ONE (03:28)
--- NOTE | 2019-08-22 06:12 | P.PN ---
Date of Service: 08/22/19 pt started on PRBC , tolerating well. Blood bank d/w and earlier report of pt having multiple antibodies was an error . patient did not have multiple antibodies .
[2019-08-22] MEDS: D5 0.9 NS 1,000 ML IV SCH (07:00)
[2019-08-22] MEDS ORDERED: NA CHLORIDE 0.9% 500 ML ONE (08:21)
[2019-08-22] MEDS: levETIRAcetam 500 MG TAB PO SCH (08:29)
[2019-08-22] MEDS: FAMOTIDINE 20 MG TAB PO SCH (08:29)
--- NOTE | 2019-08-22 08:51 | CON ---
This 28-year-old 2, para 2, with history of seizure disorder and anemia. Patient states that she has been seen by [facility] for this problem, has been on Depo-Provera for about a year, but has anirudh nued to have bleeding especially during the last 2 to 3 months. She has consulted with them about op tions of treatment including Mirena IUD, and ablation with a tubal at the same time. I think that th is is a reasonable thing given the history that she says every time she has bleeding problems it gets low enough to where it triggers her seizures. Patient is currently bleeding but not severely. She is receiving a blood transfusion. I would suggest at this point to start her on control pills twice a day for the next 30 days, not for control but of course for bleeding control. She has an appointment with [facility] next week, I think if we get her bleeding under control she can then discuss with them the options that they have already been talking about such as the tubal ligation and ablat ion the same time or to a minimum Mirena IUD which they have also discussed and we discussed again to day. Other options including getting back on the Depo with control pills as a supplement even Nexplanon but I think of all those options the ablation with concomitant tubal sterilization would be the most long-lasting solution and it would be of benefit to the patient is certainly what she wishe s. Secondly, would be the Mirena IUD which I think is a very good second choice. Full discussion wi the patient, she is slightly obtunded this morning because of the Benadryl she was given before e blood transfusion but during the conversation she became more coherent and was alert by the end of the conversation and stated that she understood everything and would follow up with [facility]. DEJON/MARIA ESTHER Voice ID: [id number] Report ID: [id number]
[2019-08-22] MEDS: MEDROXYPROGESTERONE 5 MG TAB PO SCH (09:00)
[2019-08-22 12:17] VITALS: O2SAT 96
[2019-08-22 12:19] VITALS: BP 103/58; TEMP 98.8
[2019-08-22 13:53] LABS: ALT/SGPT 17 U/L (12-78); AST/SGOT 18 U/L (15-37); Albumin 3.3 g/dL (3.4-5.0); Alkaline Phosphatase 77 U/L (45-117); BUN Blood Urea Nitrogen 6 mg/dL (7-18); Bicarbonate 23 mmol/L (21-32); Bilirubin Total 0.5 mg/dL (0.2-1.0); Glucose Level 113 mg/dL (74-106); Protein, Total 6.6 g/dL (6.4-8.2); Sodium Level 141 mmol/L (136-145)
[2019-08-22 13:58] LABS: Absolute Lymphocytes (CBC) 1.8 K/uL (0.7-4.9); Basophils % 0.9 % (0-1.3); Hematocrit 27.2 % (36.0-45.0); Lymphocytes % 24.4 % (15.3-44.8); MPV 8.1 fL (7.6-11.3); RBC Red Blood Cell Count 3.68 M/uL (3.86-4.86)
--- NOTE | 2019-08-22 14:53 | P.DS ---
Admission Date: 08/21/19 Discharge Date: 08/22/19 Primary Care Provider: [facility] [place] [facility] Reason for Admission: Anemia from Menometrorrhagia Consultations: Dr. Hernandez Brief History of Present Illness: Patient came to ED for increased weakness seizures secondary to chronic vaginal bleeding over the past 2 months without resolution. Stated that she has had this in past and that the anemia causes her to have seizures. Patient found to be anemic in ED and was admitted for transfusion and consult with OB Hospital Course: Patient has remained stable while in the hospital. Bleeding controlled at this time. Was put on Provera once daily and OB was consulted. Patient was also transfused. Latest Hemoglobin was 8.7. Patient feeling tired but better. Discussed with her that she must f/u with OB for IUD placement or ablation. That until then will need to be on OCPs to control bleeding. Will also start her on iron supplementation. Knows to come back to ED if something were to change or worsen. <Emil Rojas - Last Filed: 08/22/19 14:48> Admission Date: 08/21/19 Discharge Date: 08/23/19 <Linnea Farris - Last Filed: 08/23/19 14:17> Disposition: ROUTINE DISCHARGE Discharge Condition: GOOD Vital Signs/Physical Exam: Temp Pulse Resp BP Pulse Ox 98.8 F 90 18 103/58 L 96 08/22/19 12:00 08/22/19 12:00 08/22/19 12:00 08/22/19 12:00 08/22/19 12:00 General: Alert, In no apparent distress, Oriented x3 HEENT: PERRLA, Mucous membr. moist/pink, EOMI Neck: Supple, 2+ carotid pulse no bruit, JVD not distended Respiratory: Clear to auscultation bilaterally, Normal air movement Cardiovascular: No edema, Normal pulses, Regular rate/rhythm, Normal S1 S2, No gallops, No rubs, No murmurs Capillary refill: <2 Seconds Gastrointestinal: Normal bowel sounds, Soft and benign, Non-distended, No ascites, No tenderness, No masses, No rebound, No guarding Musculoskeletal: No clubbing, No swelling, No contractures, No erythema, No tenderness, No warmth Integumentary: No rashes, No breakdown, No significant lesion, No tenderness/ swelling, No erythema, No warmth, No cyanosis Neurological: Normal speech, Normal strength at 5/5 x4 extr, Normal tone, Sensation intact, Cranial nerves 3-12 intact, Normal reflexes 2+, Normal affect Lymphatics: No axilla or inguinal lymphadenopathy Laboratory Data at Discharge: WBC 7.2 K/uL (4.3-10.9) 08/22/19 13:22 Hgb 8.7 g/dL (12.0-15.0) L 08/22/19 13:22 Hct 27.2 % (36.0-45.0) L D 08/22/19 13:22 Plt Count 345 K/uL (152-406) 08/22/19 13:22 Sodium 141 mmol/L (136-145) 08/22/19 13:22 Potassium 4.0 mmol/L (3.5-5.1) 08/22/19 13:22 BUN 6 mg/dL (7-18) L 08/22/19 13:22 Creatinine 0.56 mg/dL (0.55-1.3) 08/22/19 13:22 Glucose 113 mg/dL (74-106) H 08/22/19 13:22 Total Bilirubin 0.5 mg/dL (0.2-1.0) 08/22/19 13:22 AST 18 U/L (15-37) 08/22/19 13:22 ALT 17 U/L (12-78) 08/22/19 13:22 Alkaline Phosphatase 77 U/L (45-117) 08/22/19 13:22 <Emil Rojas - Last Filed: 08/22/19 14:48> Vital Signs/Physical Exam: Temp Pulse Resp BP Pulse Ox 98.8 F 90 18 103/58 L 96 08/22/19 12:00 08/22/19 12:00 08/22/19 12:00 08/22/19 12:00 08/22/19 12:00 Laboratory Data at Discharge: WBC 7.2 K/uL (4.3-10.9) 08/22/19 13:22 Hgb 8.7 g/dL (12.0-15.0) L 08/22/19 13:22 Hct 27.2 % (36.0-45.0) L D 08/22/19 13:22 Plt Count 345 K/uL (152-406) 08/22/19 13:22 Sodium 141 mmol/L (136-145) 08/22/19 13:22 Potassium 4.0 mmol/L (3.5-5.1) 08/22/19 13:22 BUN 6 mg/dL (7-18) L 08/22/19 13:22 Creatinine 0.56 mg/dL (0.55-1.3) 08/22/19 13:22 Glucose 113 mg/dL (74-106) H 08/22/19 13:22 Total Bilirubin 0.5 mg/dL (0.2-1.0) 08/22/19 13:22 AST 18 U/L (15-37) 08/22/19 13:22 ALT 17 U/L (12-78) 08/22/19 13:22 Alkaline Phosphatase 77 U/L (45-117) 08/22/19 13:22 <Linnea Farris - Last Filed: 08/23/19 14:17> Patient Discharge Instructions: 1.Follow up with [facility] [place] this upcoming week for talks about Ablasion surgery and possible IUD placement. 2. Take OCP as prescribed for bleeding control. 3. Take iron supplementation. 4. Rest for next couple of days. 5. Return to ED if worse Diet: Regular Activity: Ad jack Time spent managing pt's care (in minutes): 45 <Emil Rojas - Last Filed: 08/22/19 14:48> Physician Review: Patient Assessed, Agree with Above Assessment and Plan (Case discussed w PA. Chart reviewed) <Linnea Farris - Last Filed: 08/23/19 14:17> Home Medications: Levetiracetam [Keppra] 1 tab PO BID 08/21/19 Ferrous Sulfate 325 mg PO BID #60 tablet 08/22/19 Medroxyprogester [Provera*] 10 mg PO DAILY #30 tab 08/22/19 New Medications: Ferrous Sulfate 325 mg PO BID #60 tablet Medroxyprogester [Provera*] 10 mg PO DAILY #30 tab
--- NOTE | 2019-08-23 00:38 | CON ---
Reason For Consultation: Consultation called because of seizures. History Of Present Illness: Ms. Hope is a 28-year-old right-handed patient who was seen in clinic for localization-related complex partial seizures. She has frequent seizures despite taking Keppra 750 mg twice daily. She has had an increase in seizure frequency over the last 2 months, coin cident with increasing menses type bleeding that she says has been excessive for at least 2 months. She has become weak and in the emergency room blood work revealed a hemoglobin of 7.2. She was admit vandana for further evaluation and blood transfusion. Previously, she was seen in the [facility] for the excess bleeding and was treated medically with medroxyprogesterone, which did not help. H er next possibility is surgical treatment for which she was seeking a followup. In hospital she had no evidence of infection with blood work showing a normal white blood cell count and her chemistries essentially unremarkable. Since hospitalization she has had no additional seizure-like activity and she did have Keppra dosage adjusted to 1000 mg twice daily. Past Medical History: Includes [id number] seizures. Past Surgical History: None. Family History: Noncontributory. Allergies: NO KNOWN DRUG ALLERGIES. Medications: At home, Keppra 750 mg twice daily. Review of Systems: She reports excess bleeding, diffuse weakness, and multiple seizures, otherwise a 10-point systems re viewed and negative. Physical Examination: Vital Signs: Blood pressure 103/58, pulse 90, respiratory rate 17, temperature 98.8, oxygen saturati on 96% on room air. Weight 139 pounds, height 5 feet 3 inches, BMI 24.6. General: Ms. Hope is resting in bed. She is in no acute distress. HEENT: She is normocephalic, atraumatic. Sclerae anicteric. Oropharynx is pink and moist. Neck: Supple. Chest: Clear. Heart: Regular. Extremities: Showed no edema, cyanosis, or clubbing. Neurologic: Alert, oriented to situation, place, and person. She has no postictal state at this poi nt. Her cranial nerve exam show no deficits. She has no deficits in terms of motor, coordination, s trength, balance, and gait. Assessment: Ms. Hope is a 28-year-old patient with localization-related seizures who has had an inc rease in seizure frequency with excess of vaginal bleeding from prolonged menstrual cycles. She is t o be evaluated by gynecology at [facility] for possible surgical procedure. She failed medical management for controlling her excess bleeding. Plan: 1.She will continue actually the increased Keppra dosage of 1000 mg twice daily. 2.She should have blood levels done in a week. 3.Follow up in Dr. German's clinic in 2 weeks. 4.Maintain a seizure diary. WILFRED/MARIA ESTHER Voice ID: [id number] Report ID: [id number]
== END 2019-08-22 15:38 | disposition home or self-care (01) ==
LOC: ER 13:23 → ERHOLD 21:38 → 4TH 22:19
PROVIDERS: ADMIT Internal Medicine; ATTEND Family Medicine
PROC: 30233N1 Transfusion of Nonautologous Red Blood Cells into Peripheral Vein, Percutaneous Approach (ICD-10-PCS; principal; 2019-08-22)
DX: D64.9 Anemia, unspecified (principal); N93.8 Other specified abnormal uterine and vaginal bleeding; G40.909 Epilepsy, unspecified, not intractable, without status epilepticus; Z79.899 Other long term (current) drug therapy
CPT/HCPCS: 36430; 96361; 85025 ×2; 80048; 36415 ×2; 86900; 86850; 81025; 86901; 85027; 82728; 83540; 80053; 84466; 96374; 99285; J1200; P9016 ×2; J7042; J7030 ×2; J7040 ×2; J2405; G0378 ×3

== ENCOUNTER 2019-10-12 14:40 | Emergency (ER) | payer OTHER ==
--- OUTSIDE RECORDS SUMMARY | 2019-10-12 14:43 | XMS REPORT ---
:1990 Author Organization [facility] t Address [address] [place] [address] Care Team Providers Name Role Phone BRANDO RODAS Unavailable Unavailable Payers Payer Name Policy Type Policy Number Effective Date Expiration D ate Problems This patient has no known problems. Allergies, Adverse Reactions, Alerts Allergy Allergy Status Severity Reaction(s) Onset Inactive Treating C omments Name Type Date Date Clinician No Known DA Active U 2019-02 Allergies -11 00:00:0 0 No Known DA Active U 2017-04 Allergies -24 00:00:0 0 Medications This patient has no known medications. Results Test Description Test Time Test Comments Text Results Atomic Results Result Comments RPR Qualitative 2019-02-25 12:07:58 Test Item Value Reference Range Comments RPR Qual (test code = RPR Qual) Non-Reactive Non-Reactive Reactive Control (test code = Reactive Control) Reactive Weak Reactive Control (test code = Weak Reactive Weak Reactive Control) Non-Reactive Control (test code = Non-Reactive Control) Non-Reac tive Lot # (test code = Lot #) [id number] Expiration Dt (test code = Expiration Dt) 04-14-2020 Thyroid Stimulating [id number] 07:59:52 Test Item Value Reference Range Comments TSH (test code = TSH) 0.717 mIU/mL 0.270-4.200 Lipid [id number] 07:52:46 Test Item Value Reference Range Comments Cholesterol Total (test code 141 mg/dL 0-200 RIS K OF HEART DISEASEPublished = Cholesterol Total) by [place] [employer] Analyte Optimal Borderline Increased RiskCH OL <200 200-239 >240TRIG <150 150-199 >200HDL Male >6 0 <40HDL Female >60 <50 LDL <100 130-159 >160LDL Near optimal is 100-129 Triglycerides (test code = 59 mg/dL 9-200 Triglycerides) HDL (test code = HDL) 57 mg/dL 50-60 LDL (test code = LDL) 73 mg/dL 0-130 The equati on being used in this calculation is LDL = (Chol - HDL) - (Trig / 5 ) VLDL (test code = VLDL) 12 mg/dL 5-40 The equa tion being used in this calculation is VLDL = Trig / 5 Chol/HDL (test code = 2.5 ratio 0.0-4.4 Chol/HDL) LDL/HDL Ratio (test code = 1 The e quation being used in this LDL/HDL Ratio) calculation is LDL/HDL Ratio=LDL Calc/H DL Chol Urine Drug [id number] 15:27:40 Test Item Value Reference Range Comments Amphetamine Screen Ur (test Negative Negative code = Amphetamine Screen Ur) Barbiturate Screen Ur (test Negative Negative code = Barbiturate Screen Ur) Benzodiazepines Ur (test code = POSITIVE Negative Benzodiazepines Ur) Cocaine Screen Ur (test code = Negative Negative Cocaine Screen Ur) U Methadone Scr (test code = U Negative Negative Methadone Scr) Opiate Screen Ur (test code = Negative Negative Opiate Screen Ur) U PCP Scrn (test code = U PCP Negative Negative Scrn) Cannabinoid Screen Ur (test Negative Negative code = Cannabinoid Screen Ur) U TCA (test code = U TCA) Negative Negative The re sults of all drug screen tests are only preliminary. Cli nical consideration an d professional peter gment should be applied to an y drug of abuse test resul t, particularly whe n preliminary positive results are obtained. Please order a separate confirm atory test if desired. Comprehensive Metabolic [id number] 15:15:20 Test Item Value Reference Range Comments Sodium Level (test code = Sodium Level) 140.0 mmol/L 135.0-14 5.0 Potassium Level (test code = Potassium Level) 3.8 mmol/L 3. 5-5.1 Chloride Level (test code = Chloride Level) 103 mmol/L 98-1 05 CO2 (test code = CO2) 24 mmol/L 22-29 Anion Gap (test code = Anion Gap) 13 mmol/L 7-16 BUN (test code = BUN) 7.20 mg/dL 6.00-20.00 Creatinine Level (test code = Creatinine Level) 0.70 mg/dL 0.50-0.90 BUN/Creat Ratio (test code = BUN/Creat Ratio) 10 Glucose Level (test code = Glucose Level) 135 mg/dL 70-115 Calcium Level (test code = Calcium Level) 9.4 mg/dL 8.3-10 .5 Alk Phos (test code = Alk Phos) 95 U/L 35-104 Bilirubin Total (test code = Bilirubin Total) 0.2 mg/dL 0. 1-0.9 Albumin Level (test code = Albumin Level) 5.0 g/dL 3.5-5. 2 Protein Total (test code = Protein Total) 7.7 g/dL 6.4-8. 3 ALT (test code = ALT) 24 U/L 1-33 AST (test code = AST) 24 U/L 1-32 Globulin (test code = Globulin) 2.7 g/dL 2.9-3.1 A/G Ratio (test code = A/G Ratio) 1.9 ratio Comprehensive Metabolic [id number] 15:15:20 Test Item Value Reference Range Comments Sodium Level (test code = 140.0 mmol/L 135.0-145.0 Sodium Level) Potassium Level (test 3.8 mmol/L 3.5-5.1 code = Potassium Level) Chloride Level (test code 103 mmol/L 98-105 = Chloride Level) CO2 (test code = CO2) 24 mmol/L 22-29 Anion Gap (test code = 13 mmol/L 7-16 Anion Gap) BUN (test code = BUN) 7.20 mg/dL 6.00-20.00 Creatinine Level (test 0.70 mg/dL 0.50-0.90 code = Creatinine Level) BUN/Creat Ratio (test 10 code = BUN/Creat Ratio) Glucose Level (test code 135 mg/dL 70-115 = Glucose Level) Calcium Level (test code 9.4 mg/dL 8.3-10.5 = Calcium Level) Alk Phos (test code = Alk 95 U/L 35-104 Phos) Bilirubin Total (test 0.2 mg/dL 0.1-0.9 code = Bilirubin Total) Albumin Level (test code 5.0 g/dL 3.5-5.2 = Albumin Level) Protein Total (test code 7.7 g/dL 6.4-8.3 = Protein Total) ALT (test code = ALT) 24 U/L 1-33 AST (test code = AST) 24 U/L 1-32 Globulin (test code = 2.7 g/dL 2.9-3.1 Globulin) A/G Ratio (test code = 1.9 ratio A/G Ratio) eGFR AA (test code = eGFR >60 mL/min/1.73 m2 eGF R (estimated AA) Glomerular Filtr ation Rate) is an shae mated value, calculate d from the patient's se rum creatinine using the MDRD equation. It is NOT the patient's actual GFR. The eGFR provides a more clinically usefu l measure of kidney diseas e than serum creatinine alone.This ca lculation takes sex and ra ce into account, if the information is p rovided. If the race is n ot provided, and th e patient is -Ameri can, multiply by 1.21 2. If sex is not provided, and the patient is femal e, multiply by 0.74 2. Results for christin ents <18 years of age hav e not been validated b y the MDRD study and s tabitha be interpreted with caution. eGFR Result Interpretation:e GFR > or = 60 is in the N ormal RangeeGFR < 60 m ay mean kidney diseaseeG FR < 15 may mean kidney failure Range s recommended by nina arguelles [employer] Foundation, http://nkdep.nih .gov Alcohol [id number] 15:15:20 Test Item Value Reference Range Comments Ethanol Level (test code = <0.00 g/dL 0.00-0.01 Intox icated 0.080 g/dL or more Ethanol Level) Ethanol Inst (test code = <0 Ethanol Inst) Comprehensive Metabolic [id number] 15:15:20 Test Item Value Reference Range Comments Sodium Level (test code = 140.0 mmol/L 135.0-145.0 Sodium Level) Potassium Level (test 3.8 mmol/L 3.5-5.1 code = Potassium Level) Chloride Level (test code 103 mmol/L 98-105 = Chloride Level) CO2 (test code = CO2) 24 mmol/L 22-29 Anion Gap (test code = 13 mmol/L 7-16 Anion Gap) BUN (test code = BUN) 7.20 mg/dL 6.00-20.00 Creatinine Level (test 0.70 mg/dL 0.50-0.90 code = Creatinine Level) BUN/Creat Ratio (test 10 code = BUN/Creat Ratio) Glucose Level (test code 135 mg/dL 70-115 = Glucose Level) Calcium Level (test code 9.4 mg/dL 8.3-10.5 = Calcium Level) Alk Phos (test code = Alk 95 U/L 35-104 Phos) Bilirubin Total (test 0.2 mg/dL 0.1-0.9 code = Bilirubin Total) Albumin Level (test code 5.0 g/dL 3.5-5.2 = Albumin Level) Protein Total (test code 7.7 g/dL 6.4-8.3 = Protein Total) ALT (test code = ALT) 24 U/L 1-33 AST (test code = AST) 24 U/L 1-32 Globulin (test code = 2.7 g/dL 2.9-3.1 Globulin) A/G Ratio (test code = 1.9 ratio A/G Ratio) eGFR AA (test code = eGFR >60 mL/min/1.73 m2 eGF R (estimated AA) Glomerular Filtr ation Rate) is an shae mated value, calculate d from the patient's se rum creatinine using the MDRD equation. It is NOT the patient's actual GFR. The eGFR provides a more clinically usefu l measure of kidney diseas e than serum creatinine alone.This ca lculation takes sex and ra ce into account, if the information is p rovided. If the race is n ot provided, and th e patient is -Ameri can, multiply by 1.21 2. If sex is not provided, and the patient is femal e, multiply by 0.74 2. Results for christin ents <18 years of age hav e not been validated b y the MDRD study and marion lu be interpreted with caution. eGFR Result Interpretation:e GFR > or = 60 is in the N ormal RangeeGFR < 60 m ay mean kidney diseaseeG FR < 15 may mean kidney failure Range s recommended by nina arguelles [employer] Foundation, http://nkdep.nih .gov eGFR Non-AA (test code = >60.00 mL/min/1.73 eGFR (estimated eGFR Non-AA) m2 Glomerular Filtr ation Rate) is an shae mated value, calculate d from the patient's se rum creatinine using the MDRD equation. It is NOT the patient's actual GFR. The eGFR provides a more clinically usefu l measure of kidney diseas e than serum creatinine alone.This ca lculation takes sex and ra ce into account, if the information is p rovided. If the race is n ot provided, and th e patient is -Ameri can, multiply by 1.21 2. If sex is not provided, and the patient is femal e, multiply by 0.74 2. Results for christin ents <18 years of age hav e not been validated b y the MDRD study and s tabitha be interpreted with caution. eGFR Result Interpretation:e GFR > or = 60 is in the N ormal RangeeGFR < 60 m ay mean kidney diseaseeG FR < 15 may mean kidney failure Range s recommended by nina arguelles National Kid[employer] Foundation, http://nkdep.nih .gov Urinalysis [id number] 15:11:20 Test Item Value Reference Range Comments UA WBC (test code = UA WBC) 6-10 0-5 UA RBC (test code = UA RBC) 0-5 0-5 UA Bacteria (test code = UA Bacteria) Moderate UA Squam Epithelial (test code = UA Squam TNTC Epithelial) UA Mucous (test code = UA Mucous) Few Urinalysis with Microscopic if [id number] 14:42:58 Test Item Value Reference Range Comments UA Color (test code = UA YELLO Yellow Color) UA Appear (test code = UA CLEAR Clear Appear) UA pH (test code = UA pH) 6.5 UA Spec Grav (test code = UA 1.014 1.001-1.035 Spec Grav) UA Glucose (test code = UA NEG Negative Glucose) UA Ketones (test code = UA NEG Negative Ketones) UA Blood (test code = UA 250 cells/mcL Negative Blood) UA Protein (test code = UA NEG Negative Protein) UA Bili (test code = UA Bili) NEG Negative UA Urobilinogen (test code = 0.2 mg/dL UA Urobilinogen) UA Nitrite (test code = UA NEG Negative Nitrite) UA Leuk Est (test code = UA NEG Negative Leuk Est) UA Micro Ind? (test code = UA Indicated Not Indicated Re sult created by rule Micro Ind?) GL_SJM_UA_MICRO_ IND Complete Blood Count with [id number] 14:37:26 Test Item Value Reference Range Comments WBC (test code = WBC) 9.2 x10 4.4-10.5 RBC (test code = RBC) 4.84 x10 3.75-5.20 Hgb (test code = Hgb) 10.8 g/dL 12.2-14.8 Hct (test code = Hct) 35.3 % 36.5-44.4 MCV (test code = MCV) 72.90 fL 80.00-100.00 MCHC (test code = MCHC) 30.60 g/dL 32.00-37.50 MCH (test code = MCH) 22.3 pg 27.0-32.5 RDW CV (test code = RDW CV) 14.8 % 11.5-14.5 Platelets (test code = 332.0 x10 140.0-440.0 Platelets) MPV (test code = MPV) 9.7 fL Slide Review (test code = Auto Auto Result created by Slide Review) GL_SJM_SLIDE_REV _AUTO GL_SJM_XN_RFLX nRBC (test code = nRBC) 0 NRBC Abs (test code = NRBC 0.00 x10 Abs) Pos Morph XN (test code = Pos A Morph XN) IPF (test code = IPF) 0 % Automated [id number] 14:37:26 Test Item Value Reference Range Comments Neutro Auto (test code = Neutro Auto) 65.8 % 36.0-70.0 Lymph Auto (test code = Lymph Auto) 25.5 % 12.0-44.0 [place] Auto (test code = [place] Auto) 7.3 % 0.0-11.0 Eos, Auto (test code = Eos, Auto) 0.7 % 0.0-7.0 Basophil Auto (test code = Basophil Auto) 0.5 % 0.0-2. 0 Neutro Absolute (test code = Neutro Absolute) 6.0 x10 1. 6-7.4 Lymph Absolute (test code = Lymph Absolute) 2.34 x10 .50- 4.60 [place] Absolute (test code = [place] Absolute) .67 x10 .00-1. 20 Eos Absolute (test code = Eos Absolute) 0.06 x10 0.00-0.7 4 Baso Absolute (test code = Baso Absolute) 0.05 x10 0.00-0 .21 IG [id number] 14:37:26 Test Item Value Reference Range Comments IG (test code = IG) 0.2 % 0.0-5.0 IG Abs (test code = IG Abs) 0 x10 HCG Qualitative [id number] 14:34:08 Test Item Value Reference Range Comments hCG Ur (test code = hCG Ur) Negative If t he result is "Negative" in patients suspect ed to be , recomm end retest with a sample ob tained 48 to 72 hours later, or by ordering a quantitative a ssay. If the result is "Borde rline" testing should be repeat ed in 48 to 72 hours. Lot # (test code = Lot #) [id number] Expiration Dt (test code = 2020-03-14 Expiration Dt) Neg Control (test code = Neg Negative Control) Pos Control (test code = Pos Positive Control) Internal QC (test code = Acceptable Internal QC) DRUGS OF ABUSE SCREEN [id number] 17:11:00 Test Item Value Reference Range Comments URN COCAINE (test code = NEGATIVE NEGATIVE Cocaine cut-off concentration: COCAURN) 300 ng/mL URN CANNABINOIDS (test code = NEGATIVE NEGATIVE Ca nnabinoids cut-off CANNABURN) concentration: 5 0 ng/mL URN AMPHETAMINE (test code = NEGATIVE NEGATIVE Amp hetamine cut-off AMPHETURN) concentration: 1 000 ng/mL URN BARBITURATE (test code = NEGATIVE NEGATIVE Bar biturate cut-off BARBITURN) concentration: 2 00 ng/mL URN BENZODIAZEPINE (test code NEGATIVE NEGATIVE Be nzodiazepine cut-off = BENZOURN) concentration: 2 00 ng/mL URN OPIATES (test code = NEGATIVE NEGATIVE Opiates cut-off concentration: OPIATURN) 200 ng/mL URN PHENCYCLIDINE (PCP) (test NEGATIVE NEGATIVE Ph encyclidine(PCP) cut-off code = PHENCURN) concentration: 25 ng/ml URN METHADONE (test code = NEGATIVE NEGATIVE Metha done cut-off METHAURN) concentration: 3 00 ng/mL URINALYSIS [id number] 17:08:00 Test Item Value Reference Range Comments UA COLOR (test code = COLU) YELLOW UA APPEARANCE (test code = APPU) SLHZY UA GLUCOSE DIPSTICK (test code = NORMAL mg/dl NORMAL DGLUU) UA BILIRUBIN DIPSTICK (test code = NEGATIVE mg/dL NEGATIVE BILU) UA KETONE DIPSTICK (test code = KETU) NEGATIVE mg/dl NEGATIVE UA SPECIFIC GRAVITY (test code = SGU) 1.020 1.000-1.03 0 UA BLOOD DIPSTICK (test code = RIVER) 250 Gilbert/micL Gilbert/micL NEGATI VE UA PH DIPSTICK (test code = MARY) 6.0 5.0-9.0 UA PROTEIN DIPSTICK (test code = PROU) NEGATIVE mg/dl NEGATIVE UA UROBILINIOGEN DIPSTICK (test code = NORMAL mg/dl NORMAL URO) UA NITRITE DIPSTICK (test code = KIET) NEGATIVE NEGATIVE UA LEUKOCYTE ESTERASE DIPSTICK (test NEGATIVE Bryan/micL NEGATIVE code = LEUU) UA WBC (test code = WBCU) 0-3 WBC/HPF NONE UA RBC (test code = RBCU) 10-25 RBC/HPF 0-3 UA EPITHELIAL CELLS (test code = EPIU) 5-10 EPI/HPF 0-3 UA BACTERIA (test code = BACU) MOD NONE URINALYSIS [id number] 17:00:00 Test Item Value Reference Range Comments UA COLOR (test code = COLU) UA APPEARANCE (test code = APPU) UA GLUCOSE DIPSTICK (test code = NORMAL mg/dl NORMAL DGLUU) UA BILIRUBIN DIPSTICK (test code = NEGATIVE mg/dL NEGATIVE BILU) UA KETONE DIPSTICK (test code = KETU) NEGATIVE mg/dl NEGATIVE UA SPECIFIC GRAVITY (test code = SGU) 1.020 1.000-1.03 0 UA BLOOD DIPSTICK (test code = RIVER) 250 Gilbert/micL Gilbert/micL NEGATI VE UA PH DIPSTICK (test code = MARY) 6.0 5.0-9.0 UA PROTEIN DIPSTICK (test code = PROU) NEGATIVE mg/dl NEGATIVE UA UROBILINIOGEN DIPSTICK (test code = NORMAL mg/dl NORMAL URO) UA NITRITE DIPSTICK (test code = KIET) NEGATIVE NEGATIVE UA LEUKOCYTE ESTERASE DIPSTICK (test NEGATIVE Bryan/micL NEGATIVE code = LEUU) UA WBC (test code = WBCU) WBC/HPF NONE UA RBC (test code = RBCU) RBC/HPF 0-3 UA EPITHELIAL CELLS (test code = EPIU) EPI/HPF 0-3 UA BACTERIA (test code = BACU) NONE HCG SERUM [id number] 16:52:00 Test Item Value Reference Range Comments HCG SERUM QUAL (test code = HCGQL) NEGATIVE NEGATIVE - CT HEAD/BRAIN W/O [id number] 16:51:00 FAX: Theresa Fields MD [place]: St: REG Name: SAHRA NETTLES [facility] : 1990 Age/S: 28/F [address] [facility] Unit: [id number] Loc: [place], [place] Phys: [place] [id number] Acct: [id number] Dis Date: Status: REG ER PHONE #: [phone] Exam Date: 02/23/2019 1642 FAX #: [phone] Reason: SEIZURE EXAMS: CPT CODE: [id number] CT HEAD/BRAIN W/O CONT [id number] Dictation location: U19. CT HEAD WITHOUT CONTRAST. HISTORY: SEIZURE COMPARISON: No comparison is available. TECHNIQUE: Axial CT images of the head were obtained with coronal and/or sagittal reformattedviews. Automated exposure control, iterative reconstruction technique, and/or adjustment of mA and/or kV according to patient's size was utilized for radiation dose reduction. IV CONTRAST: None. FINDINGS: No intracranial abnormalities such as hemor rhage, mass, mass effect, hydrocephalus, midline shift, extra-axial fluid collection or secondary signs of an acute infarct are noted. The calvarium and skull base are intact.The visualized paranasal sinus and mastoid air cells are clear. IMPRESSION: No evidence of acute intracranial abnormality. at 1651 Reported and signed by: Mark Morrison M.D. CC: Theresa Fields MD Technologist: SAHRA DICKSON Trnscrd Dt/Tm: 02/23/2019 (4621) [email or web address] Orig Print D/T: S: 02/23/2019 ([id number] PAGE 1 Signed ReportBASIC METABOLIC [id number] 16:31:00 Test Item Value Reference Range Comments SODIUM (test code = NA) 138 mmol/l 134.0-147.0 POTASSIUM (test code = K) 3.8 mmol/L 3.6-5.2 CHLORIDE (test code = CL) 102 mmol/l 98.0-107.0 CARBON DIOXIDE (test code = CO2) 26.7 mmol/l 21.0-33.0 ANION GAP (test code = GAP) 13.1 0-20 GLUCOSE (test code = GLU) 110 mg/dl 70.0-110.0 BLOOD UREA NITROGEN (test code = BUN) 8 mg/dl 7.0-18.0 CREATININE (test code = CREAT) 0.66 mg/dL 0.60-1.30 GFR NON BLACK (test code = GFRNONBLACK) 112 mL/min 110-120 GFR BLACK (test code = GFRBLACK) 136 mL/min 133-145 CALCIUM (test code = CA) 8.8 mg/dl 8.0-10.5 BASIC METABOLIC [id number] 16:26:00 Test Item Value Reference Range Comments SODIUM (test code = NA) 138 mmol/l 134.0-147.0 POTASSIUM (test code = K) 3.8 mmol/L 3.6-5.2 CHLORIDE (test code = CL) 102 mmol/l 98.0-107.0 CARBON DIOXIDE (test code = CO2) 26.7 mmol/l 21.0-33.0 ANION GAP (test code = GAP) 13.1 0-20 GLUCOSE (test code = GLU) mg/dl 70.0-110.0 BLOOD UREA NITROGEN (test code = BUN) mg/dl 7.0-18.0 CREATININE (test code = CREAT) mg/dL 0.60-1.30 GFR NON BLACK (test code = GFRNONBLACK) mL/min 110-120 GFR BLACK (test code = GFRBLACK) mL/min 133-145 CALCIUM (test code = CA) mg/dl 8.0-10.5 CBC W/AUTO [id number] 16:15:00 Test Item Value Reference Range Comments WHITE BLOOD CELL (test code = WBC) 8.0 K/mm3 4.5-11.0 RED BLOOD CELL (test code = RBC) 4.57 M/mm3 3.80-5.20 HEMOGLOBIN (test code = HGB) 10.1 gm/dL 12.0-16.0 HEMATOCRIT (test code = HCT) 33.6 % 36.0-48.0 MEAN CELL VOLUME (test code = MCV) 73.5 UM3 82.0-99.0 MEAN CELL HGB (test code = MCH) 22.1 UUG 25.5-32.5 MEAN CELL HGB CONCETRATION (test code = MCHC) 30.1 gm/dL 29 .0-35.5 RED CELL DISTRIBUTION WIDTH (test code = RDW) 15.0 % 11 .5-15.0 RED CELL DISTRIBUTION WIDTH SD (test code = 39.3 fL 34.8 -50.2 RDW-SD) PLATELET COUNT (test code = PLT) 319 K/mm3 150-400 MEAN PLATELET VOLUME (test code = MPV) 10.5 fl 7.4-10.4 NEUTROPHIL % (test code = NT%) 59.5 % 49.0-76.0 IMMATURE GRANULOCYTE % (test code = IG%) 0.2 % 0.0-0.4 LYMPHOCYTE % (test code = LY%) 26.9 % 23.0-38.0 MONOCYTE % (test code = MO%) 10.4 % 1.0-10.0 EOSINOPHIL % (test code = EO%) 2.1 % 1.0-5.0 BASOPHIL % (test code = BA%) 0.9 % 0.0-1.0 NEUTROPHIL # (test code = NT#) 4.8 K/mm3 2.4-6.3 IMMATURE GRANULOCYTE # (test code = IG#) 0.02 x10 3/uL 0.00-0. 07 LYMPHOCYTE # (test code = LY#) 2.2 K/mm3 1.2-4.0 MONOCYTE # (test code = MO#) 0.8 K/mm3 0.0-0.6 EOSINOPHIL # (test code = EO#) 0.2 K/MM3 0.0-0.7 BASOPHIL # (test code = BA#) 0.1 K/mm3 0.0-0.2 LIPID PROFILE (CORONARY RISK)2018-12-08 14:27:00 Test Item Value Reference Range Comments TRIGLYCERIDES (test code = 39 MG/DL 30-200 TRIG) CHOLESTEROL (test code = 139 MG/DL 122-200 CHOL) CHOLESTEROL/HDL RATIO (test 2.2 1.5-4.5 1. Initial classification code = CHOLHDL) based on total c holesterol: <200 mg/dl Desirable choles terol 200-239 mg/dl Borderline high risk choles terol >240 mg/dl High risk cholesterol2. Initial classification b ased on LDL cholesterol: <130 mg/dl Desirable LDL cholesterol 130-159 mg/dl Borde rline high risk LDL > 159 mg/dl High risk LDL cholesterol3. HDL < 35 mg/dl represent increased CHD ri sk; HDL > 60 mg/dl represe nt decreased CHD risk.4. Ch ol/HDL > 5.0 represent increa sed CHD risk in men; Chol /HDL > 4.5 represent increa sed CHD risk in women. HDL CHOLESTEROL (test code = 63 MG/DL 40-60 HDL) LIPOPROTEIN LDL (test code = 68 MG/DL 62-130 LDL) LIPOPROTEIN VLDL (test code = 8 MG/DL 3-60 VLDL) RAPID PLASMA [id number] 10:31:00 Test Item Value Reference Range Comments RAPID PLASMA REAGIN (test code = RPR) Nonreactive Nonreactiv e GLYCOSYLATED HEMOGLOBIN (HA1C)2018-12-07 10:05:00 Test Item Value Reference Range Comments GLYCOSYLATED HEMOGLOBIN (HA1C) (test code = 5.8 % TOT HB 4.5- 6.2 GLYHGB) [id number] 15:31:00 Test Item Value Reference Range Comments ACETAMINOPHEN (test code = < 1 MCG/ML 10-30 Aceta minophen is possibly ACET) toxic at levels of: 1. more than 150 MCG/ML 4 hours post ingestion. 2. mo re than 50 MCG/ML 12 hours post ingestion. [id number] 15:31:00 Test Item Value Reference Range Comments SALICYLATE (test code = BOSSMAN) < 3 MG/DL 0-20 Ref erence Range: Analgesic....... ........... < 10 mg/dl Therapeutic..... ........... 15-20 mg/dl Mil d Toxicity........ ...... > 30 mg/dl Severe Toxicity........ .... > 60 mg/dl UA RFLX [id number] 14:18:00 Test Item Value Reference Range Comments UA COLOR (test code = COLU) YELLOW YELLOW UA APPEARANCE (test code = APPU) CLEAR CLEAR UA GLUCOSE DIPSTICK (test code = DGLUU) NEGATIVE mg/dL NEGATIVE UA BILIRUBIN DIPSTICK (test code = BILU) NEGATIVE NEGATIV E UA KETONE DIPSTICK (test code = KETU) NEGATIVE mg/dL NEGATIVE UA SPECIFIC GRAVITY (test code = SGU) 1.010 1.001-1.03 5 UA BLOOD DIPSTICK (test code = RIVER) 4+ NEGATIVE UA PH DIPSTICK (test code = MARY) 8.0 5.5-7.0 UA PROTEIN DIPSTICK (test code = PROU) NEGATIVE mg/dL NEGATIVE UA UROBILINOGEN DIPSTICK (test code = URO) NORMAL mg/dL MISAEL L UA NITRITE DIPSTICK (test code = KIET) NEGATIVE NEGATIVE UA LEUKOCYTE ESTERASE DIPSTICK (test code = NEGATIVE NEGA TIVE LEUU) UA COMMENT (test code = COMU) VOLUME 10-12 ML URINE SPECIMEN DESCRIPTION (test code = Clean Catch UASPEC) UA [id number] 14:18:00 Test Item Value Reference Range Comments UA WBC (test code = WBCU) < 10 #/hpf <10 UA RBC (test code = RBCU) 0-2 #/hpf NONE SEEN UA BACTERIA (test code = BACU) RARE #/hpf NONE SEEN UA SQUAMOUS CELLS (test code = SQU) 0 - 20 #/lpf <100 UA MUCUS (test code = MUCU) 1+ #/lpf NONE SEEN BASIC METABOLIC [id number] 14:16:00 Test Item Value Reference Range Comments SODIUM (test code = NA) 140 MMOL/L 133-145 POTASSIUM (test code = K) 4.3 MMOL/L 3.6-5.2 CHLORIDE (test code = CL) 104 MMOL/L 100-108 CARBON DIOXIDE (test code = 22 MMOL/L 22-32 CO2) GLUCOSE (test code = GLU) 91 MG/DL 65-99 Result s of this assay method may be falsely d epressed orelevated if pa tient is taking sulfasala zine. BLOOD UREA NITROGEN (test 10 MG/DL 6-20 code = BUN) GLOMERULAR FILTRATION RATE 131 71-165 Repor ting units: (test code = GFR) mL/min/1.73m\\S \\2 (Modified MDRD Formula) CREATININE (test code = 0.55 MG/DL 0.60-1.00 CREAT) CALCIUM (test code = CA) 9.4 MG/DL 8.7-10.5 HEPATIC FUNCTION [id number] 14:16:00 Test Item Value Reference Range Comments TOTAL PROTEIN (test code = 7.6 G/DL 6.4-8.2 PROT) ALBUMIN (test code = ALB) 4.2 G/DL 3.4-5.0 GLOBULIN (test code = GLOB) 3.4 G/DL 1.5-3.8 ALBUMIN/GLOBULIN RATIO (test 1.2 1.1-2.2 code = A/G) BILIRUBIN TOTAL (test code = 0.5 MG/DL 0.0-1.0 BILT) BILIRUBIN DIRECT (test code = 0.2 MG/DL 0.0-0.3 BILD) BILIRUBIN INDIRECT (test code 0.3 MG/DL 0.0-0.7 = BILIND) SGOT/AST (test code = AST) 25 Units/L 15-37 Resul ts of this assay method may be falsely d epressed orelevated if pa tient is taking sulfasala zine. SGPT/ALT (test code = ALT) 43 Units/L 30-65 Resul ts of this assay method may be falsely d epressed orelevated if pa tient is taking sulfasala zine. ALKALINE PHOSPHATASE TOTAL 74 Units/L 50-136 (test code = ALKP) [id number] 14:16:00 Test Item Value Reference Range Comments CK (test code = CKT) 87 Units/L 26-192 [id number] 14:16:00 Test Item Value Reference Range Comments ALCOHOL (test code = ALC) < 3 MG/DL 0-10 0 - 10: Should be interpreted as NEGATIVE. 11 - 50: None to mild euphoria. 5 1 - 100: Mild influence on vis ion and dark adaptation. 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 > 400: Fatalities reported. Result s are for medical purposes only an d not forlegal or employment evalu ative purposes. BASIC METABOLIC [id number] 14:09:00 Test Item Value Reference Range Comments SODIUM (test code = NA) 140 MMOL/L 133-145 POTASSIUM (test code = K) 4.3 MMOL/L 3.6-5.2 CHLORIDE (test code = CL) 104 MMOL/L 100-108 CARBON DIOXIDE (test code = 22 MMOL/L 22-32 CO2) GLUCOSE (test code = GLU) 91 MG/DL 65-99 Result s of this assay method may be falsely d epressed orelevated if hailey hicks is taking sulfasala zine. BLOOD UREA NITROGEN (test 10 MG/DL 6-20 code = BUN) GLOMERULAR FILTRATION RATE 131 71-165 Repor ting units: (test code = GFR) mL/min/1.73m\\S \\2 (Modified MDRD Formula) CREATININE (test code = 0.55 MG/DL 0.60-1.00 CREAT) CALCIUM (test code = CA) 9.4 MG/DL 8.7-10.5 HEPATIC FUNCTION [id number] 14:09:00 Test Item Value Reference Range Comments TOTAL PROTEIN (test code = PROT) G/DL 6.4-8.2 ALBUMIN (test code = ALB) G/DL 3.4-5.0 GLOBULIN (test code = GLOB) G/DL 1.5-3.8 ALBUMIN/GLOBULIN RATIO (test code = A/G) 1.1-2.2 BILIRUBIN TOTAL (test code = BILT) MG/DL 0.0-1.0 BILIRUBIN DIRECT (test code = BILD) MG/DL 0.0-0.3 SGOT/AST (test code = AST) Units/L 15-37 SGPT/ALT (test code = ALT) Units/L 30-65 ALKALINE PHOSPHATASE TOTAL (test code = ALKP) Units/L 50 -136 [id number] 14:09:00 Test Item Value Reference Range Comments CK (test code = CKT) Units/L 26-192 [id number] 14:09:00 Test Item Value Reference Range Comments ALCOHOL (test code = ALC) MG/DL 0-10 LACTIC ACID [id number] 13:50:00 Test Item Value Reference Range Comments LACTIC ACID POC (test code 0.97 MMOL/L 0.90-1.70 Perfo rmed by certified = LACTP) long distance operator at [facility] [id number] 13:48:00 Test Item Value Reference Range Comments GLUBED (test code = GLUBED) 88 MG/DL 65-99 Perf ormed by certified long distance operator at [facility] DRUG OF ABUSE SCREEN [id number] 13:43:00 Test Item Value Reference Range Comments UR COCAINE (test code = NEGATIVE NEGATIVE COCAU) UR MDMA (test code = NEGATIVE NEGATIVE MDMAQLU) UR CANNABINOIDS (test code NEGATIVE NEGATIVE = CANU) UR AMPHETAMINE (test code NEGATIVE NEGATIVE = AMPHU) UR BARBITURATE QUAL (test NEGATIVE NEGATIVE code = BARBQLU) UR BENZODIAZEPINE (test NEGATIVE NEGATIVE code = BENZU) UR OPIATES QUAL (test code NEGATIVE NEGATIVE = OPIAQLU) UR PHENCYCLIDINE (PCP) NEGATIVE NEGATIVE Urine Charlie g Abuse Screen provides (test code = PHENCU) preliminary results thatmay be confirmed by alt ernate methods (i.e., GC/[facility]) [facility]. Res ults of screen may not be usedin cr iminal justice, job performance or professionalcred ential review, or custody i ssues. Negative [place] Level ng/ml -------- ----- Cocaine 300 Methamphetamine (Ecstacy) 500 Cannabinoids (TH C) 50 Amphetamine 1000 Barbiturates 200 Benzodiazepines 200 Opiates 300 Phe ncyclidine (PCP) 25 UR HCG [id number] 13:39:00 Test Item Value Reference Range Comments UR HCG QUAL (test code = NEGATIVE NEGATIVE False n egatives may occur when HCGQLU) levels of hCGare below 20 mIU/ml. When i s still suspected, a new specimensh ould be obtained after 48 hours a nd re-tested.If waiting 48 hours is not medically advisable,the te st result should be confirmed using aquantitative hCG assay. UA RFLX [id number] 13:38:00 Test Item Value Reference Range Comments UA COLOR (test code = COLU) YELLOW YELLOW UA APPEARANCE (test code = APPU) CLEAR CLEAR UA GLUCOSE DIPSTICK (test code = DGLUU) NEGATIVE mg/dL NEGATIVE UA BILIRUBIN DIPSTICK (test code = BILU) NEGATIVE NEGATIV E UA KETONE DIPSTICK (test code = KETU) NEGATIVE mg/dL NEGATIVE UA SPECIFIC GRAVITY (test code = SGU) 1.010 1.001-1.03 5 UA BLOOD DIPSTICK (test code = RIVER) 4+ NEGATIVE UA PH DIPSTICK (test code = MARY) 8.0 5.5-7.0 UA PROTEIN DIPSTICK (test code = PROU) NEGATIVE mg/dL NEGATIVE UA UROBILINOGEN DIPSTICK (test code = URO) NORMAL mg/dL MISAEL L UA NITRITE DIPSTICK (test code = KIET) NEGATIVE NEGATIVE UA LEUKOCYTE ESTERASE DIPSTICK (test code = NEGATIVE NEGA TIVE LEUU) UA COMMENT (test code = COMU) VOLUME 10-12 ML URINE SPECIMEN DESCRIPTION (test code = Clean Catch UASPEC) UA [id number] 13:38:00 Test Item Value Reference Range Comments UA WBC (test code = WBCU) #/hpf <10 UA RBC (test code = RBCU) #/hpf NONE SEEN UA SQUAMOUS CELLS (test code = SQU) #/lpf <100 UA RFLX [id number] 13:38:00 Test Item Value Reference Range Comments UA COLOR (test code = COLU) YELLOW YELLOW UA APPEARANCE (test code = APPU) CLEAR CLEAR UA GLUCOSE DIPSTICK (test code = DGLUU) NEGATIVE mg/dL NEGATIVE UA BILIRUBIN DIPSTICK (test code = BILU) NEGATIVE NEGATIV E UA KETONE DIPSTICK (test code = KETU) NEGATIVE mg/dL NEGATIVE UA SPECIFIC GRAVITY (test code = SGU) 1.010 1.001-1.03 5 UA BLOOD DIPSTICK (test code = RIVER) 4+ NEGATIVE UA PH DIPSTICK (test code = MARY) 8.0 5.5-7.0 UA PROTEIN DIPSTICK (test code = PROU) NEGATIVE mg/dL NEGATIVE UA UROBILINOGEN DIPSTICK (test code = URO) NORMAL mg/dL MISAEL L UA NITRITE DIPSTICK (test code = KIET) NEGATIVE NEGATIVE UA LEUKOCYTE ESTERASE DIPSTICK (test code = NEGATIVE NEGA TIVE LEUU) UA COMMENT (test code = COMU) VOLUME 10-12 ML URINE SPECIMEN DESCRIPTION (test code = Clean Catch UASPEC) UA [id number] 13:38:00 Test Item Value Reference Range Comments UA WBC (test code = WBCU) #/hpf <10 UA RBC (test code = RBCU) #/hpf NONE SEEN UA SQUAMOUS CELLS (test code = SQU) #/lpf <100 CBC W/AUTO [id number] 13:26:00 Test Item Value Reference Range Comments WHITE BLOOD CELL (test code = WBC) 10.42 x10 3/uL 4.80-10.80 RED BLOOD CELL (test code = RBC) 4.71 x10 6/uL 4.2-5.4 HEMOGLOBIN (test code = HGB) 11.3 G/DL 12.0-16.0 HEMATOCRIT (test code = HCT) 35.7 % 37-47 MEAN CELL VOLUME (test code = MCV) 75.8 FL 81-99 MEAN CELL HGB (test code = MCH) 24.0 PG 27-31 MEAN CELL HGB CONCENTRATION (test code = 31.7 G/DL 33-37 MCHC) RED CELL DISTRIBUTION WIDTH (test code = RDW) 15.4 % 11 .5-14.5 PLATELET COUNT (test code = PLT) 258 x10 3/uL 150-450 MEAN PLATELET VOLUME (test code = MPV) 10.9 FL 7.4-10.4 NEUTROPHIL % (test code = NT%) 72.0 % 42-86 LYMPHOCYTE % (test code = LY%) 17.9 % 24-44 MONOCYTE % (test code = MO%) 8.4 % 0.0-4.0 EOSINOPHIL % (test code = EO%) 1.2 % 0.0-2.7 BASOPHIL % (test code = BA%) 0.5 % 0.0-0.5 NEUTROPHIL # (test code = NT#) 7.51 x10 3/uL 1.8-7.7 LYMPHOCYTE # (test code = LY#) 1.86 x10 3/uL 1.0-4.8 MONOCYTE # (test code = MO#) 0.88 x10 3/uL 0.0-0.8 EOSINOPHIL # (test code = EO#) 0.12 x10 3/uL 0.0-0.5 BASOPHIL # (test code = BA#) 0.05 x10 3/uL 0.0-0.2 [id number] 19:07:00 Test Item Value Reference Range Comments LEVETIRACETAM (test 28.7 ug/mL 10.0-40.0 This test wa s developed and its code = LEVTAM) performance characteristicsd etermined by [employer]. It has not been cleared orapproved by [facility] Food and Drug Administration.P erformed At: [facility] [id number] [place], [place] [id number] Dias MD Ph:[phone] BASIC METABOLIC [id number] 04:58:00 Test Item Value Reference Range Comments SODIUM (test code = NA) 138 MMOL/L 133-145 POTASSIUM (test code = K) 3.7 MMOL/L 3.6-5.2 CHLORIDE (test code = CL) 104 MMOL/L 100-108 CARBON DIOXIDE (test code = 25 MMOL/L 22-32 CO2) GLUCOSE (test code = GLU) 90 MG/DL 65-99 Result s of this assay method may be falsely d epressed orelevated if hailey hicks is taking sulfasala zine. BLOOD UREA NITROGEN (test 8 MG/DL 6-20 code = BUN) GLOMERULAR FILTRATION RATE 137 71-165 Repor ting units: (test code = GFR) mL/min/1.73m\\S \\2 (Modified MDRD Formula) CREATININE (test code = 0.53 MG/DL 0.60-1.00 CREAT) CALCIUM (test code = CA) 8.9 MG/DL 8.7-10.5 [id number] 04:58:00 Test Item Value Reference Range Comments MAGNESIUM (test code = MAG) 1.9 MG/DL 1.8-2.4 CBC W/AUTO [id number] 04:08:00 Test Item Value Reference Range Comments WHITE BLOOD CELL (test code = WBC) 8.24 x10 3/uL 4.80-10.80 RED BLOOD CELL (test code = RBC) 4.57 x10 6/uL 4.2-5.4 HEMOGLOBIN (test code = HGB) 11.2 G/DL 12.0-16.0 HEMATOCRIT (test code = HCT) 35.3 % 37-47 MEAN CELL VOLUME (test code = MCV) 77.2 FL 81-99 MEAN CELL HGB (test code = MCH) 24.5 PG 27-31 MEAN CELL HGB CONCENTRATION (test code = MCHC) 31.7 G/DL 3 3-37 RED CELL DISTRIBUTION WIDTH (test code = RDW) 15.2 % 11 .5-14.5 PLATELET COUNT (test code = PLT) 282 x10 3/uL 150-450 MEAN PLATELET VOLUME (test code = MPV) 10.3 FL 7.4-10.4 NEUTROPHIL % (test code = NT%) 47.0 % 42-86 IMMATURE GRANULOCYTE % (test code = IG%) 0.1 % 0.0-2.0 LYMPHOCYTE % (test code = LY%) 40.5 % 24-44 MONOCYTE % (test code = MO%) 9.0 % 0.0-4.0 EOSINOPHIL % (test code = EO%) 2.9 % 0.0-2.7 BASOPHIL % (test code = BA%) 0.5 % 0.0-0.5 NUCLEATED RBC % (test code = NRBC%) 0.0 % 0.0-0.0 NEUTROPHIL # (test code = NT#) 3.87 x10 3/uL 1.8-7.7 IMMATURE GRANULOCYTE # (test code = IG#) 0.01 x10 3/uL 0.00-0. 03 LYMPHOCYTE # (test code = LY#) 3.34 x10 3/uL 1.0-4.8 MONOCYTE # (test code = MO#) 0.74 x10 3/uL 0.0-0.8 EOSINOPHIL # (test code = EO#) 0.24 x10 3/uL 0.0-0.5 BASOPHIL # (test code = BA#) 0.04 x10 3/uL 0.0-0.2 NUCLEATED RBC # (test code = NRBC#) 0.0 X10 3/uL 0.0-0.2 - MRI BRAIN W/O [id number] 13:51:00 Patient Name: SAHRA NETTLES Unit No: [id number] EXAMS: CPT CODE: [id number] MRI BRAIN W/O CONTRAST [id number] Reason: sz INDICATION: Seizure COMPARISON: CT brain, [...] MD Technologist: Andre Self MRI Trscrpt Dt/ ([email or web address] Orig Print D/T: S: 09/17/2018 (2314) [facility] CntNAME: SAHRA NETTLES [address] [facility] PHYS: [place] [address] : 1990 AGE: 27 SEX: F LOC: D.D313 1 PHONE #: [phone] EXAM DATE: 09/17/2018 STATUS: ADM IN FAX #: RAD NO: DC Dt: PAGE 1 Signed [id number] 07:25:00 Test Item Value Reference Range Comments PROLACTIN (test code = 24.6 ng/mL 4.8-23.3 Performed At: [facility] PROLAC) [address] [id number] Sb Man MD Ph:[phone] UA RFLX MICROSCOPIC [id number] 19:02:00 Test Item Value Reference Range Comments UA COLOR (test code = COLU) YELLOW YELLOW UA APPEARANCE (test code = APPU) CLEAR CLEAR UA GLUCOSE DIPSTICK (test code = DGLUU) NEGATIVE mg/dL NEGATIVE UA BILIRUBIN DIPSTICK (test code = BILU) NEGATIVE NEGATIV E UA KETONE DIPSTICK (test code = KETU) NEGATIVE mg/dL NEGATIVE UA SPECIFIC GRAVITY (test code = SGU) 1.015 1.001-1.03 5 UA BLOOD DIPSTICK (test code = RIVER) NEGATIVE NEGATIVE UA PH DIPSTICK (test code = MARY) 6.0 5.5-7.0 UA PROTEIN DIPSTICK (test code = PROU) NEGATIVE mg/dL NEGATIVE UA UROBILINOGEN DIPSTICK (test code = URO) NORMAL mg/dL MISAEL L UA NITRITE DIPSTICK (test code = KIET) NEGATIVE NEGATIVE UA LEUKOCYTE ESTERASE DIPSTICK (test code = NEGATIVE NEGA TIVE LEUU) UA COMMENT (test code = COMU) VOLUME 10-12 ML URINE SPECIMEN DESCRIPTION (test code = Clean Catch UASPEC) UA WBC (test code = WBCU) < 10 #/hpf <10 UA SQUAMOUS CELLS (test code = SQU) 0 - 20 #/lpf <100 UA CULTURE NEEDED? (test code = UACULT) Criteria not met URINE SOURCE: Clean CatchUA RFLX MICROSCOPIC [id number] 18:56:00 Test Item Value Reference Range Comments UA COLOR (test code = COLU) YELLOW YELLOW UA APPEARANCE (test code = APPU) CLEAR CLEAR UA GLUCOSE DIPSTICK (test code = DGLUU) NEGATIVE mg/dL NEGATIVE UA BILIRUBIN DIPSTICK (test code = BILU) NEGATIVE NEGATIV E UA KETONE DIPSTICK (test code = KETU) NEGATIVE mg/dL NEGATIVE UA SPECIFIC GRAVITY (test code = SGU) 1.015 1.001-1.03 5 UA BLOOD DIPSTICK (test code = RIVER) NEGATIVE NEGATIVE UA PH DIPSTICK (test code = MARY) 6.0 5.5-7.0 UA PROTEIN DIPSTICK (test code = PROU) NEGATIVE mg/dL NEGATIVE UA UROBILINOGEN DIPSTICK (test code = URO) NORMAL mg/dL MISAEL L UA NITRITE DIPSTICK (test code = KIET) NEGATIVE NEGATIVE UA LEUKOCYTE ESTERASE DIPSTICK (test code = NEGATIVE NEGA TIVE LEUU) UA COMMENT (test code = COMU) VOLUME 10-12 ML URINE SPECIMEN DESCRIPTION (test code = Clean Catch UASPEC) UA WBC (test code = WBCU) #/hpf <10 UA SQUAMOUS CELLS (test code = SQU) #/lpf <100 UA CULTURE NEEDED? (test code = UACULT) URINE SOURCE: Clean [id number] 15:56:00 Test Item Value Reference Range Comments CK (test code = CKT) 34 Units/L 26-192 BASIC METABOLIC [id number] 12:57:00 Test Item Value Reference Range Comments SODIUM (test code = NA) 136 MMOL/L 133-145 POTASSIUM (test code = K) 3.5 MMOL/L 3.6-5.2 CHLORIDE (test code = CL) 103 MMOL/L 100-108 CARBON DIOXIDE (test code = 26 MMOL/L 22-32 CO2) GLUCOSE (test code = GLU) 115 MG/DL 65-99 Result s of this assay method may be falsely d epressed orelevated if hailey hicks is taking sulfasala zine. BLOOD UREA NITROGEN (test 8 MG/DL 6-20 code = BUN) GLOMERULAR FILTRATION RATE 119 71-165 Repor ting units: (test code = GFR) mL/min/1.73m\\S \\2 (Modified MDRD Formula) CREATININE (test code = 0.60 MG/DL 0.60-1.00 CREAT) CALCIUM (test code = CA) 8.6 MG/DL 8.7-10.5 [id number] 12:57:00 Test Item Value Reference Range Comments CK (test code = CKT) 32 Units/L 26-192 CBC W/AUTO [id number] 12:33:00 Test Item Value Reference Range Comments WHITE BLOOD CELL (test code = WBC) 8.89 x10 3/uL 4.80-10.80 RED BLOOD CELL (test code = RBC) 4.54 x10 6/uL 4.2-5.4 HEMOGLOBIN (test code = HGB) 11.2 G/DL 12.0-16.0 HEMATOCRIT (test code = HCT) 35.0 % 37-47 MEAN CELL VOLUME (test code = MCV) 77.1 FL 81-99 MEAN CELL HGB (test code = MCH) 24.7 PG 27-31 MEAN CELL HGB CONCENTRATION (test code = MCHC) 32.0 G/DL 3 3-37 RED CELL DISTRIBUTION WIDTH (test code = RDW) 14.6 % 11 .5-14.5 PLATELET COUNT (test code = PLT) 288 x10 3/uL 150-450 MEAN PLATELET VOLUME (test code = MPV) 9.5 FL 7.4-10.4 NEUTROPHIL % (test code = NT%) 61.7 % 42-86 IMMATURE GRANULOCYTE % (test code = IG%) 0.2 % 0.0-2.0 LYMPHOCYTE % (test code = LY%) 27.1 % 24-44 MONOCYTE % (test code = MO%) 9.2 % 0.0-4.0 EOSINOPHIL % (test code = EO%) 1.1 % 0.0-2.7 BASOPHIL % (test code = BA%) 0.7 % 0.0-0.5 NUCLEATED RBC % (test code = NRBC%) 0.0 % 0.0-0.0 NEUTROPHIL # (test code = NT#) 5.48 x10 3/uL 1.8-7.7 IMMATURE GRANULOCYTE # (test code = IG#) 0.02 x10 3/uL 0.00-0. 03 LYMPHOCYTE # (test code = LY#) 2.41 x10 3/uL 1.0-4.8 MONOCYTE # (test code = MO#) 0.82 x10 3/uL 0.0-0.8 EOSINOPHIL # (test code = EO#) 0.10 x10 3/uL 0.0-0.5 BASOPHIL # (test code = BA#) 0.06 x10 3/uL 0.0-0.2 NUCLEATED RBC # (test code = NRBC#) 0.0 X10 3/uL 0.0-0.2 TOTAL IRON BINDING [id number] 05:50:00 Test Item Value Reference Range Comments SERUM IRON (test code = IRON) 17 MCG/DL 50-170 TOTAL IRON BINDING CAPACITY (test code = TIBC) 363 MCG/DL 2 80-400 IRON SATURATION (test code = FESAT) 5 % 15-50 [id number] 05:50:00 Test Item Value Reference Range Comments FERRITIN (test code = LULI) 11 NG/ML 3-105 HEPATIC FUNCTION [id number] 05:32:00 Test Item Value Reference Range Comments TOTAL PROTEIN (test code = 7.7 G/DL 6.4-8.2 PROT) ALBUMIN (test code = ALB) 4.0 G/DL 3.4-5.0 GLOBULIN (test code = GLOB) 3.7 G/DL 1.5-3.8 ALBUMIN/GLOBULIN RATIO (test 1.1 1.1-2.2 code = A/G) BILIRUBIN TOTAL (test code = 0.3 MG/DL 0.0-1.0 BILT) BILIRUBIN DIRECT (test code = 0.1 MG/DL 0.0-0.3 BILD) BILIRUBIN INDIRECT (test code 0.2 MG/DL 0.0-0.7 = BILIND) SGOT/AST (test code = AST) 21 Units/L 15-37 Resul ts of this assay method may be falsely d epressed orelevated if pa tient is taking sulfasala zine. SGPT/ALT (test code = ALT) 21 Units/L 30-65 Resul ts of this assay method may be falsely d epressed orelevated if pa tient is taking sulfasala zine. ALKALINE PHOSPHATASE TOTAL 100 Units/L 50-136 (test code = ALKP) - CT HEAD/BRAIN W/O [id number] 20:19:00 Patient Name: SAHRA NETTLES Unit No: [id number] EXAMS: CPT CODE: [id number] CT HEAD/BRAIN W/O CONT 55502 Reason: seizure TECHNIQUE: Contiguous 5 mm images [...] Cristiane Heath Technologist: Edel BURNS Trscrpt Dt/ (2019)Tristan Orig Print D/T: S: 09/14/2018 (2021) CTDI: DLP: [facility] NAME: SAHRA NETTLES [facility] PHYS: NGA. - Keanu Váz[place] [address] : 1990 AGE: 27 SEX: F LOC: D.NER PHONE#: [phone] EXAM DATE: 09/14/2018 STATUS: REG ER FAX #: RAD NO: DC Dt: PAGE 1 Signed Report- XR CHEST 1 [id number] 20:18:00 Patient Name: SAHRA NETTLES [facility] Unit No: [id number] EXAMS: CPT CODE: [id number] XR CHEST 1 V 18684 Reason: screen for pneumonia FINDINGS: Single view ofthe chest shows normal heart size and pulmonary vasculature. The lungs are clear bilaterally. There is no focal infiltrate, pleural effusion or pneumothorax. IMPRESSION: No a cute cardiopulmonary findings at 2018 Reported and signed by: Lashell Jimenez MD CC: Keanu Vázquez MD; Cristiane Heath Technologist: Edel Cade CT Trscrpt Dt/ (2017)Tristan Orig PrintD/T: S: 09/14/2018 (2020) [facility] NAME: SAHRA NETTLES November [facility] PHYS: WONGSAVANAH. - Keanu Váz[place] [address] : 1990 AGE: 27 SEX: F LOC: D.NER PHONE #: [phone] EXAM DATE: STATUS: REG ER FAX #: RAD NO: DC Dt: PAGE 1 Signed ReportHCG SERUM [id number] 20:04:00 Test Item Value Reference Range Comments HCG SERUM QUAL (test code NEGATIVE NEGATIVE False negatives may occur when = HCGQL) levels of hCGare below 10 mIU/ml. When i s still suspected, a new specimensh ould be obtained after 48 hours a nd re-tested.If waiting 48 hours is not medically advisable,the te st result should be confirmed usi ng aquantitative hCG assay. BASIC METABOLIC [id number] 19:51:00 Test Item Value Reference Range Comments SODIUM (test code = NA) 139 MMOL/L 133-145 POTASSIUM (test code = K) 3.9 MMOL/L 3.6-5.2 CHLORIDE (test code = CL) 101 MMOL/L 100-108 CARBON DIOXIDE (test code = 30 MMOL/L 22-32 CO2) GLUCOSE (test code = GLU) 95 MG/DL 65-99 Result s of this assay method may be falsely d epressed orelevated if hailey hicks is taking sulfasala zine. BLOOD UREA NITROGEN (test 9 MG/DL 6-20 code = BUN) GLOMERULAR FILTRATION RATE 96 71-165 Repor ting units: (test code = GFR) mL/min/1.73m\\S \\2 (Modified MDRD Formula) CREATININE (test code = 0.72 MG/DL 0.60-1.00 CREAT) CALCIUM (test code = CA) 9.3 MG/DL 8.7-10.5 CBC W/AUTO [id number] 19:46:00 Test Item Value Reference Range Comments WHITE BLOOD CELL (test code = WBC) 10.04 x10 3/uL 4.80-10.80 RED BLOOD CELL (test code = RBC) 4.90 x10 6/uL 4.2-5.4 HEMOGLOBIN (test code = HGB) 10.9 G/DL 12.0-16.0 HEMATOCRIT (test code = HCT) 37.4 % 37-47 MEAN CELL VOLUME (test code = MCV) 76.3 FL 81-99 MEAN CELL HGB (test code = MCH) 22.2 PG 27-31 MEAN CELL HGB CONCENTRATION (test code = 29.1 G/DL 33-37 MCHC) RED CELL DISTRIBUTION WIDTH (test code = RDW) 15.0 % 11 .5-14.5 PLATELET COUNT (test code = PLT) 371 x10 3/uL 150-450 MEAN PLATELET VOLUME (test code = MPV) 9.8 FL 7.4-10.4 NEUTROPHIL % (test code = NT%) 65.2 % 42-86 LYMPHOCYTE % (test code = LY%) 22.2 % 24-44 MONOCYTE % (test code = MO%) 10.5 % 0.0-4.0 EOSINOPHIL % (test code = EO%) 1.6 % 0.0-2.7 BASOPHIL % (test code = BA%) 0.5 % 0.0-0.5 NEUTROPHIL # (test code = NT#) 6.55 x10 3/uL 1.8-7.7 LYMPHOCYTE # (test code = LY#) 2.23 x10 3/uL 1.0-4.8 MONOCYTE # (test code = MO#) 1.05 x10 3/uL 0.0-0.8 EOSINOPHIL # (test code = EO#) 0.16 x10 3/uL 0.0-0.5 BASOPHIL # (test code = BA#) 0.05 x10 3/uL 0.0-0.2 BLOOD [id number] 10:00:00 Test Item Value Reference Range Comments CULTURE (BEAKER) (test code = 1095) No growth in 5 days HCG, QUANTITATIVE, [id number] 15:37:00 Test Item Value Reference Range Comments GONADOTROPIN, CHORIONIC (HCG) QUANT (BEAKER) 31891 mIU/mL 0-1 0 (test code = 649) Non- Females: <10 mIU/mL Females: Gestation Age Reference Range(mIU/mL) 0.2-1 Week 5-50 1-2 Weeks 50-500 2-3 Weeks 100-5,000 3-4Weeks 500-10,000 4-5 Weeks 1,000-50,000 5-6 Weeks 10,000-100,000 6-8 Weeks 15,000-200,000 2-3 Months 10,000-100,000COMPREHENSIVE METABOLIC [id number] 15:10:00 Test Item Value Reference Range Comments TOTAL PROTEIN (BEAKER) 7.0 gm/dL 6.0-8.3 (test code = 770) ALBUMIN (BEAKER) (test 3.9 g/dL 3.5-5.0 code = 1145) ALKALINE PHOSPHATASE 50 U/L 40-150 (BEAKER) (test code = 346) BILIRUBIN TOTAL (BEAKER) 0.5 mg/dL 0.2-1.2 (test code = 377) SODIUM (BEAKER) (test code 140 meq/L 136-145 = 381) POTASSIUM (BEAKER) (test 3.4 meq/L 3.5-5.1 code = 379) CHLORIDE (BEAKER) (test 107 meq/L 98-107 code = 382) CO2 (BEAKER) (test code = 21 meq/L 22-29 355) BLOOD UREA NITROGEN 6 mg/dL 7-21 (BEAKER) (test code = 354) CREATININE (BEAKER) (test 0.54 mg/dL 0.57-1.25 code = 358) GLUCOSE RANDOM (BEAKER) 76 mg/dL 70-105 (test code = 652) CALCIUM (BEAKER) (test 9.2 mg/dL 8.4-10.2 code = 697) AST (SGOT) (BEAKER) (test 57 U/L 5-34 code = 353) ALT (SGPT) (BEAKER) (test 84 U/L 6-55 code = 347) EGFR (BEAKER) (test code = 135 mL/min/1.73 sq ES TIMATED GFR IS NOT 1092) m ACCURATE CREA TININE CLEARANCE IN PRE DICTING GLOMERULAR FILTR ATION RATE. ESTIMATED GFR IS NOT APPLICABLE F OR DIALYSIS PATIENT S. CBC W/PLT COUNT & AUTO [id number] 14:53:00 Test Item Value Reference Range Comments WHITE BLOOD CELL COUNT (BEAKER) (test code = 9.7 K/ L 3.5 -10.5 775) RED BLOOD CELL COUNT (BEAKER) (test code = 761) 4.31 M/ L 3.93-5.22 HEMOGLOBIN (BEAKER) (test code = 410) 10.0 GM/DL 11.2-15.7 HEMATOCRIT (BEAKER) (test code = 411) 31.9 % 34.1-44.9 MEAN CORPUSCULAR VOLUME (BEAKER) (test code = 74.0 fL 79 .4-94.8 753) MEAN CORPUSCULAR HEMOGLOBIN (BEAKER) (test code 23.2 pg 25.6-32.2 = 751) MEAN CORPUSCULAR HEMOGLOBIN CONC (BEAKER) (test 31.3 GM/DL 32.2-35.5 code = 752) RED CELL DISTRIBUTION WIDTH (BEAKER) (test code 19.0 % 11.7-14.4 = 412) PLATELET COUNT (BEAKER) (test code = 756) 259 K/CU MM 150-45 0 MEAN PLATELET VOLUME (BEAKER) (test code = 754) 9.9 fL 9.4-12.3 NUCLEATED RED BLOOD CELLS (BEAKER) (test code = 0 /100 WBC 0-0 413) NEUTROPHILS RELATIVE PERCENT (BEAKER) (test code 70 % = 429) LYMPHOCYTES RELATIVE PERCENT (BEAKER) (test code 21 % = 430) MONOCYTES RELATIVE PERCENT (BEAKER) (test code = 8 % 431) EOSINOPHILS RELATIVE PERCENT (BEAKER) (test code 1 % = 432) BASOPHILS RELATIVE PERCENT (BEAKER) (test code = 1 % 437) NEUTROPHILS ABSOLUTE COUNT (BEAKER) (test code = 6.75 K/ L 1.56-6.13 670) LYMPHOCYTES ABSOLUTE COUNT (BEAKER) (test code = 2.01 K/ L 1.18-3.74 414) MONOCYTES ABSOLUTE COUNT (BEAKER) (test code = 0.75 K/ L 0 .24-0.36 415) EOSINOPHILS ABSOLUTE COUNT (BEAKER) (test code = 0.07 K/ L 0.04-0.36 416) BASOPHILS ABSOLUTE COUNT (BEAKER) (test code = 0.08 K/ L 0 .01-0.08 417) IMMATURE GRANULOCYTES-RELATIVE PERCENT (BEAKER) 0 % 0-1 (test code = 2801) U/S, , FIRST [id number] 07:52:00Reason for exam:-> Reason for exam:->please include transvaginal ultrasound for dating FINAL REPORT ULTRASOUND FIRST TRIMESTER, ULTRASOUND TRANSVAGINAL, ULTRASOUND DUPLEX DOPPLER HISTORY: Vaginal bleeding, COMPARISON: No comparison pelvic imaging TECHNIQUE: Real-time ultrasound of the pelvis was performed transabdominally and transvaginally. Exa mination included color and spectral Doppler evaluation of the ovaries and M- mode Doppler evaluationof the embryo. FINDINGS: The uterus measures 5.4 x 7.4 x 13.9 cm in size. No uterine mass lesion is visualized. There is an intrauterine gestational sac. Mean gestational sac diameter measures 2.8 cm,correlating with an estimated gestational age of 8 weeks 1 day. An embryonic pole is evident. Nevis-rump length measures 0.63 cm, correlating with estimated [...] Garrido Verified Date/Time: 05/17/2017 07:52:37 Reading Location: [address] Ortho Consult Reading Room PREGNANCY SCREEN, [id number] 05:28:00 Test Item Value Reference Range Comments TEST URINE (BEAKER) (test code = 583) Positive MR, BRAIN, WITHOUT [id number] 18:54:00Reason for exam:->Stroke evaluationFINAL REPORT MRI brain without contrast 05/15/2017 6:51 PM CLINICAL INDICATION: EpilepsyStroke evaluation TECHNIQUE: [...] examination. Signed: Inderjit Parra Verified Date/Time: 05/15/2017 18:54:11 Reading Location: [facility] Radiology Reading Room EEG AWAKE AND [id number] 12:08:00Reason for exam:->? nonconvulsive statusDATE OF TEST: 05/15/2017DATE OF REPORT 05/15/2017 ACC: [id number] EE Start time: 1034 Stop time: 1054 ICD-10: R56.9CPT Code: 91690BILTGUN: 26 y/o woman with epilepsy found down [...] Diffuse theta and rare delta slowing, reactiveCLINICAL CORRELATION: The diffuse slowing seen in this record is consistent with a moderate encephalopathy.An EEG without epileptiform discharges does not exclude the possibility of epilepsy. If the clinicalsuspicion of epilepsy remains, consider additional EEG recordings.Marika Smith M.D.Neurophysiology FellowSwathi Harper M.D.Neurophysiology Attending [id number] 04:27:00 Test Item Value Reference Range Comments PROCALCITONIN (BEAKER) (test code = 3036) 0.17 ng/mL <0.05 SEPSIS RISK (ng/mL)Low: 0.05-0.50Intermediate: 0.51-2.00High: >=[id number] 03:15:00 Test Item Value Reference Range Comments PHOSPHORUS (BEAKER) (test code = 604) 3.1 mg/dL 2.3-4.7 [id number] 03:15:00 Test Item Value Reference Range Comments MAGNESIUM (BEAKER) (test code = 627) 1.9 mg/dL 1.6-2.6 BASIC METABOLIC [id number] 03:15:00 Test Item Value Reference Range Comments SODIUM (BEAKER) (test 139 meq/L 136-145 code = 381) POTASSIUM (BEAKER) (test 3.7 meq/L 3.5-5.1 code = 379) CHLORIDE (BEAKER) (test 110 meq/L 98-107 code = 382) CO2 (BEAKER) (test code = 19 meq/L 22-29 355) BLOOD UREA NITROGEN 8 mg/dL 7-21 (BEAKER) (test code = 354) CREATININE (BEAKER) (test 0.57 mg/dL 0.57-1.25 code = 358) GLUCOSE RANDOM (BEAKER) 92 mg/dL 70-105 (test code = 652) CALCIUM (BEAKER) (test 9.2 mg/dL 8.4-10.2 code = 697) EGFR (BEAKER) (test code 127 mL/min/1.73 sq m ES TIMATED GFR IS NOT = 1092) ACCURATE CREA TININE CLEARANCE IN PRE DICTING GLOMERULAR FILTR ATION RATE. ESTIMATED GFR IS NOT APPLICABLE F OR DIALYSIS PATIENT S. CREATINE KINASE (CK)2017-05-15 03:15:00 Test Item Value Reference Range Comments CREATINE KINASE TOTAL (BEAKER) (test code = 380) 200 U/L 29-200 LACTIC ACID, VENOUS, WHOLE [id number] 03:09:00 Test Item Value Reference Range Comments LACTATE BLOOD VENOUS (2) (BEAKER) (test code = 0.6 mmol/L 0 .5-2.2 2872) Effective 10/17/2015: Units/Reference Range ChangeNew: 0.5-2.2 mmol/L Previous: 5-20 mg/dLPROTHROMBIN TIME/[id number] 03:07:00 Test Item Value Reference Range Comments PROTIME (BEAKER) (test code = 759) 14.5 seconds 11.7-14.7 INR (BEAKER) (test code = 370) 1.1 <=5.9 RECOMMENDED COUMADIN/WARFARIN INR THERAPY RANGESSTANDARD DOSE: 2.0 - 3.0 Includes: PROPHYLAXIS forvenous thrombosis, systemic embolization; TREATMENT for venous thrombosis and/or pulmonary embolus.HIGH RISK: Target INR is 2.5-3.5 for patients with mechanical heart valves.CBC W/PLT COUNT & AUTO DIFFERENTIAL 2017-05-15 03:00:00 Test Item Value Reference Range Comments WHITE BLOOD CELL COUNT (BEAKER) (test code = 21.6 K/ L 3.5 -10.5 775) RED BLOOD CELL COUNT (BEAKER) (test code = 761) 4.04 M/ L 3.93-5.22 HEMOGLOBIN (BEAKER) (test code = 410) 9.3 GM/DL 11.2-15.7 HEMATOCRIT (BEAKER) (test code = 411) 30.1 % 34.1-44.9 MEAN CORPUSCULAR VOLUME (BEAKER) (test code = 74.5 fL 79 .4-94.8 753) MEAN CORPUSCULAR HEMOGLOBIN (BEAKER) (test code 23.0 pg 25.6-32.2 = 751) MEAN CORPUSCULAR HEMOGLOBIN CONC (BEAKER) (test 30.9 GM/DL 32.2-35.5 code = 752) RED CELL DISTRIBUTION WIDTH (BEAKER) (test code 19.3 % 11.7-14.4 = 412) PLATELET COUNT (BEAKER) (test code = 756) 250 K/CU MM 150-45 0 MEAN PLATELET VOLUME (BEAKER) (test code = 754) 10.3 fL 9.4-12.3 NUCLEATED RED BLOOD CELLS (BEAKER) (test code = 0 /100 WBC 0-0 413) NEUTROPHILS RELATIVE PERCENT (BEAKER) (test code 83 % = 429) LYMPHOCYTES RELATIVE PERCENT (BEAKER) (test code 9 % = 430) MONOCYTES RELATIVE PERCENT (BEAKER) (test code = 8 % 431) EOSINOPHILS RELATIVE PERCENT (BEAKER) (test code 0 % = 432) BASOPHILS RELATIVE PERCENT (BEAKER) (test code = 0 % 437) NEUTROPHILS ABSOLUTE COUNT (BEAKER) (test code = 17.85 K/ L 1.56-6.13 670) LYMPHOCYTES ABSOLUTE COUNT (BEAKER) (test code = 1.98 K/ L 1.18-3.74 414) MONOCYTES ABSOLUTE COUNT (BEAKER) (test code = 1.62 K/ L 0 .24-0.36 415) EOSINOPHILS ABSOLUTE COUNT (BEAKER) (test code = 0.01 K/ L 0.04-0.36 416) BASOPHILS ABSOLUTE COUNT (BEAKER) (test code = 0.04 K/ L 0 .01-0.08 417) IMMATURE GRANULOCYTES-RELATIVE PERCENT (BEAKER) 1 % 0-1 (test code = 2801) RAD, CHEST, 1 VIEW, NON [id number] 01:06:00Reason for exam:->possible infectionShould this be performed at the bedside?->YesFINAL REPORT History: Infection. Comparison: None. Findings: A single view of the chest is submitted. The cardiomediastinal contours are unremarkable. There is no focal consolidation, pneumothorax, large pleural effusion or evidence of overt pulmonary edema. There is no acute bony abnormality. Impression: No acute abnormality. Signed: Kobi Zhu MDReport Verified Date/Time: 05/15/2017 01:06:06 Reading Location: [address] Reading Room
--- OUTSIDE RECORDS SUMMARY | 2019-10-12 14:46 | XMS REPORT | Summary of Care ---
:1990 Author Organization [facility] Address [address] [place] [id number] Care Team Providers Name Role Phone Doctor Unassigned, [place] Insurance Hmo Unavailable Stepan Henderson Primary Care Provider Reason for Visit Reason Comments Follow-up Encounter Details Date Type Department Care Team Description 10/06/2019 Telemedicine Visit [facility] Cecilia Salinas Abnor mal vaginal bleeding (Primary Dx); Women's PA-C Surveillance for control, oral con [address], [address] [place] [phone] Allergies No Known Allergiesdocumented as of this encounter (statuses as of 10/06/2019) Medications Medication Sig Dispensed Refills Start Date End Date Status levETIRAcetam 750 mg Take 2 tablets 60 tablet 2 12/14/2017 Active tablet by mouth 2 (two) times daily. ibuprofen 600 mg Take 1 tablet 60 tablet 2 11/19/2018 Active tabletIndications: by mouth every Breakthrough bleeding on 6 (six) hours depo provera as needed for Pain (scale 1-3) or Pain (scale 4-6). perampanel 4 mg Tab Take 4 mg by 0 Active mouth 2 (two) times daily. rufinamide (BANZEL) 400 mg Take 1 tablet 30 tablet 4 9 Active tabletIndications: by mouth 2 Recurrent seizures (two) times daily with meals. fluoxetine HCl (PROZAC Take by 0 Active ORAL) mouth. medroxyPROGESTERone Take 1 tablet 30 tablet 3 10/06/2019 Active (PROVERA) 10 mg by mouth tabletIndications: daily. Abnormal vaginal bleeding, Surveillance for control, oral contraceptives documented as of this encounter (statuses as of 10/06/2019) Active Problems Problem Noted Date Abnormal vaginal bleeding 08/10/2019 Seizure 02/03/2019 Obesity, unspecified classification, unspecified obesi ty type, unspecified 05/12/2018 whether serious comorbidity present BMI 27.0-27.9,adult 05/12/2018 Well woman exam 05/12/2018 Encounter for contraceptive management, unspecified ty pe 05/12/2018 Corpus luteum cyst or hematoma 03/10/2018 Papanicolaou smear of cervix with low grade squamous i ntraepithelial 10/22/2017 lesion (LGSIL) Status epilepticus 06/14/2017 Seizures 06/13/2017 documented as of this encounter (statuses as of 10/06/2019) Resolved Problems Problem Noted Date Resolved Date (spontaneous vaginal delivery) 12/13/201701/04 Liveborn by vaginal delivery 12/13/201712/14 37 weeks gestation of 12/12/2017 01/05/20 18 Oligohydramnios in third trimester 12/12/201701/04 BMI 23.0-23.9, adult 12/12/2017 01/04/2018 Oligohydramnios in [place] in third trimester 01/04/2018 36 weeks gestation of 12/10/2017 01/05/20 18 Supervision of high risk in third trimester 201701/04/2018 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 10/22/2017 01/04/2018 H/O maternal Chlamydia infection, currently , third 10/22/2017 01/04/2018 trimester LGSIL Pap smear of vagina 06/24/2017 10/22/2017 Overview: If patient does not receive colpo she wi ll need colpo at 6 weeks Rh negative state in antepartum period 06/23/2017 0 01/04/2018 Overview: Will need rhogam at 28 weeks prn Chlamydia infection affecting 06/23/2017 01/04/2018 Overview: ERICK in 3/4 weeks and at 36 weeks Supervision of high-risk 06/22/201701/04 Multiparity 06/22/2017 01/04/2018 History of miscarriage 06/22/2017 01/04/2018 Epilepsy affecting 06/22/2017 01/04/2018 10 weeks gestation of 06/13/2017 06/22/19 18 Epilepsy affecting in first trimester 06/13/2017 06/22/2017 documented as of this encounter (statuses as of 10/06/2019) Immunizations Name Administration Dates Next Due Influenza Virus Vaccine Quad IM 3+ YRS 06/22/2017 Rho (d) Immune Globulin 12/13/2017, 12/21/2009 Tdap 10/22/2017 documented as of this encounter Social History Tobacco Use Types Packs/Day Years Used Date Former Smoker Smokeless Tobacco: Never Used Alcohol Use Drinks/Week oz/Week Comments No Education Answer Date Recorded What is the highest level of school you have Some college, n o degree 02/03/2019 completed or the highest degree you have received? Sex Assigned at Date Recorded Not on file Job Start Date Occupation Industry Not on file Not on file Not on file Travel History Travel Start Travel End No recent travel history available. documented as of this encounter Last Filed Vital Signs Not on filedocumented in this encounter Progress Notes Cecilia Salinas PA-C - 10/06/2019 3:00 PM CDT TELEHEALTH NOTE -conducted OV via telehealth due to covid-19 crisis- Verbal consent obtained from Patient: Heather Hope for telehealth services provided below. Communication with patient was conducted via Telephone due to patient unable to obtain video call option. Location of Patient: [facility] Location of Provider: Office Date of Service: 10/06/2019 Chief Complaint: FOLLOW-UP on irregular bleeding HPI: Heather Hope is a 28 year old female with Past Medical History: Diagnosis Date Chlamydia infection affecting 06/23/2017 Corpus luteum cyst or hematoma 03/10/2018 Pap smear abnormality of cervix 06/22/2017 Seizures 2006 Started having seizures at 13 y/o; currently on Keppra; last episode 05/06/18 Patient reports she had to go to the ER in [place] on august 20, 2019 for a blood transfusion dueto heavy menses. Patient was suppose to get IUD placed and is wanting to get something scheduled SUSAN. Patient is also wanting to discuss possible ablation. Patient was prescribed OCPs and reports it has been better controlled. She has no complaints and reports is doing well. Patient denies any abnormal/pelvic pain, discharge, dysuria, hematuria, abnormal bleeding. MEDICATIONS: No outpatient medications have been marked as taking for the 10/06/19 encounter (Telemedicine Visit) with Cecilia Salinas PA-C. ROS She has no complaints and reports is doing well. Patient denies any abnormal/pelvic pain, discharge, dysuria, hematuria, abnormal bleeding. Denies fever, chills, body aches, sob, chest pain, dyspnea. ROS otherwise negative. TELEHEALTH EXAM Alert. Happy. Stable. Answering and asking questions appropriately. ASSESSMENT/ PLAN Heather Hope is a 28 year old female with PMH as above presenting with: 1. Abnormal vaginal bleeding FOLLOW-UP with dr ALMAZAN for IUD insertion. 2. Surveillance for control, oral contraceptives Patient denies self or family history of thromboembolic disease or thrombophilia, migraine headache. I counseled patient regarding use of oral contraceptives. There are combined oral contraceptive, which has both estrogen and progestin, and there is progestin only oral contraceptive. With typical us e, 9 out 100 women get in the first year and with perfect use 0.3 out of 100 women get in the first year according to ACOG Practice Bulletin. Risks include but not limited to increase risk of thromboembolic disease, headache, weight gain, mood lability, and breast cancer. Decrease risks of ovarian cancer, colon cancer, and endometrial cancer. Oral contraceptive may decrease milk supply. Alternatives reviewed include patch, ring, Depo-Provera, Nexplanon, and IUD. Advise using condoms for STDs prevention. Plan of care, desired health behaviors, goals, Ddx, and any prescribed medications were discussed with the patient. I spent 15 minute(s) conducting this Telehealth encounter with the patient over the telephone due to patient unable to botain video call option. Education resources and self-management t ools were provided is the AVS which is accessible through [employer]. Patient/guardian/family verbalized understanding and agrees to the plan of care. Barriers to care: None. Ability to manage care: Good. If applicable, the [employer] database was accessed to review any controlled substance prescription claims data. If the patient is taking prescribed medications, the [employer] prescription claims data in Epic was reviewed to assess patient compliance with the medication treatment plan. COVID-19 precautions given including frequent handwashing, social distancing, cleaning and disinfecting, indications for testing, etc. After visit summary (AVS ) documentation will be available through [employer] for this encounter. Cecilia Salinas PA-C 10/06/2019 3:19 PM documented in this encounter Plan of Treatment Date Type Specialty Care Team Description 10/07/2019 Office Visit Obstetrics & Gynecology AdCherrie salvador MD [address] [place] [address] Dr. Carpio [place] [phone] Health Maintenance Due Date Last Done Comments INFLUENZA VACCINE (#1) 2019 06/22/2017 PAP SMEAR 07/13/2021 07/13/2018, 06/22/2017 DTaP,Tdap,and Td Vaccines (2 10/23/2027 10/22/2017 - Td) PNEUMOCOCCAL 0-64 YEARS Aged Out No longe r eligible based COMBINED SERIES on patient's age to complete this to [facility] documented as of this encounter Results Not on filedocumented in this encounter Visit Diagnoses Diagnosis Abnormal vaginal bleeding - Primary Other specified noninflammatory disorder of vagina Surveillance for control, oral con traceptives Surveillance of previously prescribed co ntraceptive pill documented in this encounter documented as of this encounter
--- OUTSIDE RECORDS SUMMARY | 2019-10-12 14:46 | XMS REPORT | Summary of Care ---
:1990 Author Organization [facility] Address [address] [place] [address] Care Team Providers Name Role Phone Doctor Unassigned, [place] Insurance Hmo Unavailable Stepan Henderson Primary Care Provider Reason for Visit Reason Comments Refill Request Encounter Details Date Type Department Care Team Description 10/11/2019 Refill [facility] Women's Alda Salinas PA-C Refill Request Healthcare- [address], [address] [facility] [address] [place] [address] [place] [address] [phone] Allergies No Known Allergiesdocumented as of this encounter (statuses as of 10/11/2019) Medications Medication Sig Dispensed Refills Start Date End Date Status levETIRAcetam 750 mg Take 2 60 tablet 2 12/14/2017 Active tablet tablets by mouth 2 (two) times daily. ibuprofen 600 mg Take 1 60 tablet 2 11/19/2018 Ac tive tabletIndications: tablet by Breakthrough bleeding on mouth every depo provera 6 (six) hours as needed for Pain (scale 1-3) or Pain (scale 4-6). perampanel 4 mg Tab Take 4 mg by 0 Active mouth 2 (two) times daily. rufinamide (BANZEL) 400 Take 1 30 tablet 4 02/04/2019 Active mg tabletIndications: tablet by Recurrent seizures mouth 2 (two) times daily with meals. fluoxetine HCl (PROZAC Take by 0 Active ORAL) mouth. MEDROXYPROGESTERONE 10 TAKE 1 90 tablet 0 10/11/2019 Active mg tabletIndications: TABLET BY Abnormal vaginal MOUTH EVERY bleeding, Surveillance DAY for control, oral contraceptives medroxyPROGESTERone Take 1 30 tablet 3 10/06/2019 10/11/19 Discontinued (PROVERA) 10 mg tablet by 20 tabletIndications: mouth daily. Abnormal vaginal bleeding, Surveillance for control, oral contraceptives documented as of this encounter (statuses as of 10/11/2019) Active Problems Problem Noted Date Abnormal vaginal [...] as of this encounter (statuses as of 10/11/2019) Resolved Problems Problem Noted Date Resolved Date [...] as of this encounter (statuses as of 10/11/2019) Immunizations Name Administration Dates Next Due Influenza [...] on patient's age to complete this to pic documented as of this encounter Results Not on filedocumented in this encounter Visit Diagnoses Diagnosis Abnormal vaginal bleeding Other specified noninflammatory disorder of vagina Surveillance for control, oral con traceptives Surveillance of previously prescribed co ntraceptive pill documented in this encounter Insurance Payer Benefit Plan / Group Subscriber ID Effective Dates Phone Address Type EDELMIRA HICKEY II [id number] 2017-Present H [place]/PPO/POS documented as of this encounter
--- NOTE | 2019-10-12 15:57 | RAD REPORT ---
EXAM DESCRIPTION: RAD - Chest Single View - 10/12/2019 3:50 pm CLINICAL HISTORY: syncope, shortness of breath COMPARISON: August 09 TECHNIQUE: AP portable chest image was obtained 10/12/2019 3:50 pm . FINDINGS: Lungs are clear. Heart and vasculature are normal. No measurable pleural effusion and no p neumothorax. No acute bony abnormality seen. No acute aortic findings suspected. Clothing artifact ov erlies the midline lower chest. IMPRESSION: No acute cardiopulmonary process.
[2019-10-12 16:33] LABS: Absolute Lymphocytes (CBC) 2.1 K/uL (0.7-4.9); Hematocrit 36.9 % (36.0-45.0); Lymphocytes % 20.2 % (15.3-44.8); MPV 8.3 fL (7.6-11.3); RBC Red Blood Cell Count 4.59 M/uL (3.86-4.86)
[2019-10-12 16:38] LABS: Barbiturates NEGATIVE (NEGATIVE); Benzodiazepines NEGATIVE (NEGATIVE); Cocaine NEGATIVE (NEGATIVE); METHAMPHETAM NEGATIVE (NEGATIVE); Methadone NEGATIVE (NEGATIVE); Opiates NEGATIVE (NEGATIVE); Phencyclidine NEGATIVE (NEGATIVE); THC Cannibis NEGATIVE (NEGATIVE)
[2019-10-12 16:53] LABS: Anisocytosis 1+; Blood Morphology Comment NOTED (NOT SEEN); Platelet Estimate ADEQ; Urine White Blood Cell Casts OK
[2019-10-12 16:55] LABS: ALT/SGPT 27 U/L (12-78); AST/SGOT 21 U/L (15-37); Albumin 3.6 g/dL (3.4-5.0); Alkaline Phosphatase 84 U/L (45-117); BUN Blood Urea Nitrogen 7 mg/dL (7-18); Bicarbonate 25 mmol/L (21-32); Bilirubin Direct < 0.1 mg/dL (0-0.2); Bilirubin Total 0.2 mg/dL (0.2-1.0); Glucose Level 111 mg/dL (74-106); NT PRO-BNP 55 pg/mL (<125); Potassium 3.8 mmol/L (3.5-5.1); Protein, Total 7.4 g/dL (6.4-8.2); Sodium Level 138 mmol/L (136-145); Troponin (Emerg Dept Use Only) < 0.02 ng/mL (0.0-0.045)
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
[2019-10-12 17:36] VITALS: TEMP 98.3; O2SAT 100
[2019-10-12 17:41] VITALS: BP 114/76
[2019-10-12 19:33] LABS: Urine Blood NEGATIVE (NEG); Urine Glucose NEGATIVE (NEG); Urine Protein NEGATIVE (NEG); Urine pH 5.5 (5.0-7.0)
--- NOTE | 2019-10-13 14:42 | EKG ---
Test Date: 2019-10-12 Test Time: 15:29:32 Clinical Research Assistant: PATY MEASUREMENT RESULTS: Intervals: Rate: 101 MD: 148 QRSD: 82 QT: 352 QTc: 456 Ida: P: 65 MD: 148 QRS: 49 T: 47 INTERPRETIVE STATEMENTS: Sinus tachycardia Possible Left atrial enlargement Borderline ECG Compared to ECG 08/09/2019 16:57:01 No significant changes Electronically Signed On 10-13-19 14:41:06 CDT by Merrill Guzman
== END 2019-10-12 17:17 | disposition home or self-care (01) ==
LOC: ER 14:40
DX: R55 Syncope and collapse (principal); R56.9 Unspecified convulsions
CPT/HCPCS: 36415; 71045; 80048; 80076; 80307; 81003; 81025; 83735; 83880; 84484; 85025; 93005; 99283

== ENCOUNTER 2019-10-23 19:01 | Emergency (ER) | payer OTHER ==
--- OUTSIDE RECORDS SUMMARY | 2019-10-23 19:04 | XMS REPORT | Clinical Summary ---
:1990 Author [facility] Address [address] [place] [address] Care Team Providers Name Role Phone Unavailable Primary Care Provider Unavailable Allergies No Known Allergies Medications Medication Sig Dispensed Refills Start Date End Date Status levETIRAcetam (KEPPRA) Take 1 tablet 60 tablet 2 05/19/2017 Active 1000 MG tablet (1,000 mg total) by mouth 2 (two) times daily. vitamin Take 1 tablet by 90 tablet 3 05/20/2017 Active w/dcznjjh-qqyb-bsvcrv mouth daily. ( PLUS) 27 mg iron- 1 mg Tab Active Problems Problem Noted Date Hypokalemia 05/18/2017 [...] Not on file Results Not on fileafter 10/22/2018 Insurance Payer Benefit Plan / Group Subscriber ID Type Phone A [facility] MEDICAID MEDICAID [place] xxxxxxxxx Medicaid [id number] 1 Advance Directives For more information, please contact:[facility] ke'[facility]ardAejdux[address] [place], [place] [phone] Code Status Date Activated Date Inactivated Comments Full Code 05/14/2017 10:10 PM 05/19/2017 2:55 PM This code status was determined by: Patient
--- OUTSIDE RECORDS SUMMARY | 2019-10-23 19:06 | XMS REPORT ---
:1990 Author Organization [facility] t Address [address] [place] [address] Care Team Providers Name Role Phone BRANDO [...] code = Expiration Dt) 04-14-2020 Thyroid Stimulating [id number] 07:59:52 Test Item Value Reference Range Comments TSH (test code = TSH) 0.717 mIU/mL 0.270-4.200 Lipid [id number] 07:52:46 Test Item Value Reference Range Comments Cholesterol Total (test code 141 mg/dL 0-200 RIS K OF HEART DISEASEPublished = Cholesterol Total) by [employer] Analyte Optimal Borderline Increased RiskCH [...] LDL/HDL Ratio=LDL Calc/H DL Chol Urine Drug [id number] 15:27:40 Test Item Value Reference Range Comments [...] confirm atory test if desired. Comprehensive Metabolic [id number] 15:15:20 Test Item Value Reference Range Comments [...] = A/G Ratio) 1.9 ratio Comprehensive Metabolic [id number] 15:15:20 Test Item Value Reference Range Comments [...] arguelles National Kidney Foundation, http://nkdep.nih .gov Alcohol [id number] 15:15:20 Test Item Value Reference Range Comments Ethanol Level (test code = <0.00 g/dL 0.00-0.01 Intox icated 0.080 g/dL or more Ethanol Level) Ethanol Inst (test code = <0 Ethanol Inst) Comprehensive Metabolic [id number] 15:15:20 Test Item Value Reference Range Comments [...] b y the MDRD study and s hould be interpreted with caution. eGFR Result Interpretation:e GFR > or = 60 is in the N ormal RangeeGFR < 60 m ay mean kidney diseaseeG FR < 15 may mean kidney failure Range s recommended by nina arguelles National Kidney Foundation, http://nkdep.nih .gov Urinalysis [id number] 15:11:20 Test Item Value Reference Range Comments UA WBC (test code = UA WBC) 6-10 0-5 UA RBC (test code = UA RBC) 0-5 0-5 UA Bacteria (test code = UA Bacteria) Moderate UA Squam Epithelial (test code = UA Squam TNTC Epithelial) UA Mucous (test code = UA Mucous) Few Urinalysis with Microscopic if [id number] 14:42:58 Test Item Value Reference Range Comments [...] Ind?) GL_SJM_UA_MICRO_ IND Complete Blood Count with [id number] 14:37:26 Test Item Value Reference Range Comments [...] (test code = IPF) 0 % Automated [id number] 14:37:26 Test Item Value Reference Range Comments Neutro Auto (test code = Neutro Auto) 65.8 % 36.0-70.0 Lymph Auto (test code = Lymph Auto) 25.5 % 12.0-44.0 [place] Auto (test code = [place] Auto) 7.3 % 0.0-11.0 Eos, Auto (test code = Eos, Auto) 0.7 % 0.0-7.0 Basophil Auto (test code = Basophil Auto) 0.5 % 0.0-2. 0 Neutro Absolute (test code = Neutro Absolute) 6.0 x10 1. 6-7.4 Lymph Absolute (test code = Lymph Absolute) 2.34 x10 .50- 4.60 [place] Absolute (test code = [place] Absolute) .67 x10 .00-1. 20 Eos Absolute (test code = Eos Absolute) 0.06 x10 0.00-0.7 4 Baso Absolute (test code = Baso Absolute) 0.05 x10 0.00-0 .21 IG [id number] 14:37:26 Test Item Value Reference Range Comments IG (test code = IG) 0.2 % 0.0-5.0 IG Abs (test code = IG Abs) 0 x10 HCG Qualitative [id number] 14:34:08 Test Item Value Reference Range Comments [...] Lot # (test code = Lot #) [id number] Expiration Dt (test code = 2020-03-14 Expiration Dt) Neg Control (test code = Neg Negative Control) Pos Control (test code = Pos Positive Control) Internal QC (test code = Acceptable Internal QC) DRUGS OF ABUSE SCREEN [id number] 17:11:00 Test Item Value Reference Range Comments [...] cut-off [place]) concentration: 3 00 ng/mL URINALYSIS [id number] 17:08:00 Test Item Value Reference Range Comments [...] (test code = BACU) MOD NONE URINALYSIS [id number] 17:00:00 Test Item Value Reference Range Comments [...] (test code = BACU) NONE HCG SERUM [id number] 16:52:00 Test Item Value Reference Range Comments HCG SERUM QUAL (test code = HCGQL) NEGATIVE NEGATIVE - CT HEAD/BRAIN W/O [id number] 16:51:00 FAX: Theresa Fields MD [place]: St: REG Name: SAHRA NETTLES [facility] : 1990 Age/S: 28/F [address] [facility] Unit: [id number] Loc: [place], [place]: [place] [id number] Acct: [id number] Dis Date: Status: REG ER PHONE #: [phone] Exam Date: 02/23/2019 1642 FAX #: [phone] Reason: SEIZURE EXAMS: CPT CODE: [id number] CT HEAD/BRAIN W/O CONT 37538 Dictation location: U19. CT HEAD WITHOUT CONTRAST. [...] MD Technologist: SAHRA DICKSON Trnscrd Dt/Tm: 02/23/2019 (0191) t.SDR.SP17 Orig Print D/T: S: 02/23/2019 (9114 PAGE 1 Signed ReportBASIC METABOLIC [id number] 16:31:00 Test Item Value Reference Range Comments [...] = CA) 8.8 mg/dl 8.0-10.5 BASIC METABOLIC [id number] 16:26:00 Test Item Value Reference Range Comments [...] code = CA) mg/dl 8.0-10.5 CBC W/AUTO [id number] 16:15:00 Test Item Value Reference Range Comments [...] = 8 MG/DL 3-60 VLDL) RAPID PLASMA [id number] 10:31:00 Test Item Value Reference Range Comments RAPID PLASMA REAGIN (test code = RPR) Nonreactive Nonreactiv e GLYCOSYLATED HEMOGLOBIN (HA1C)2018-12-07 10:05:00 Test Item Value Reference Range Comments GLYCOSYLATED HEMOGLOBIN (HA1C) (test code = 5.8 % TOT HB 4.5- 6.2 GLYHGB) [id number] 15:31:00 Test Item Value Reference Range Comments ACETAMINOPHEN (test code = < 1 MCG/ML 10-30 Aceta minophen is possibly ACET) toxic at levels of: 1. more than 150 MCG/ML 4 hours post ingestion. 2. mo re than 50 MCG/ML 12 hours post ingestion. [id number] 15:31:00 Test Item Value Reference Range Comments SALICYLATE (test code = BOSSMAN) < 3 MG/DL 0-20 Ref erence Range: Analgesic....... ........... < 10 mg/dl Therapeutic..... ........... 15-20 mg/dl Mil d Toxicity........ ...... > 30 mg/dl Severe Toxicity........ .... > 60 mg/dl UA RFLX [id number] 14:18:00 Test Item Value Reference Range Comments [...] (test code = Clean Catch UASPEC) UA [id number] 14:18:00 Test Item Value Reference Range Comments UA WBC (test code = WBCU) < 10 #/hpf <10 UA RBC (test code = RBCU) 0-2 #/hpf NONE SEEN UA BACTERIA (test code = BACU) RARE #/hpf NONE SEEN UA SQUAMOUS CELLS (test code = SQU) 0 - 20 #/lpf <100 UA MUCUS (test code = MUCU) 1+ #/lpf NONE SEEN BASIC METABOLIC [id number] 14:16:00 Test Item Value Reference Range Comments [...] = CA) 9.4 MG/DL 8.7-10.5 HEPATIC FUNCTION [id number] 14:16:00 Test Item Value Reference Range Comments [...] if hailey hicks is taking sulfasala zine. SGPT/ALT (test code = ALT) 43 Units/L 30-65 Resul ts of this assay method may be falsely d epressed orelevated if hailey hicks is taking sulfasala zine. ALKALINE PHOSPHATASE TOTAL 74 Units/L 50-136 (test code = ALKP) [id number] 14:16:00 Test Item Value Reference Range Comments CK (test code = CKT) 87 Units/L 26-192 [id number] 14:16:00 Test Item Value Reference Range Comments ALCOHOL (test code = ALC) < 3 MG/DL 0-10 0 - 10: Should be interpreted as NEGATIVE. 11 - 50: None to mild euphoria. 5 1 - 100: Mild influence on vis ion and dark adaptation. > 80: Legal intoxication; De pression of HVAC PROJECT MANAGER; Increa sing degree of poisoning. > 400: Fatalities reported. Result s are for medical purposes only an d not forlegal or employment evalu ative purposes. BASIC METABOLIC [id number] 14:09:00 Test Item Value Reference Range Comments [...] = CA) 9.4 MG/DL 8.7-10.5 HEPATIC FUNCTION [id number] 14:09:00 Test Item Value Reference Range Comments [...] (test code = ALKP) Units/L 50 -136 [id number] 14:09:00 Test Item Value Reference Range Comments CK (test code = CKT) Units/L 26-192 [id number] 14:09:00 Test Item Value Reference Range Comments ALCOHOL (test code = ALC) MG/DL 0-10 LACTIC ACID [id number] 13:50:00 Test Item Value Reference Range Comments LACTIC ACID POC (test code 0.97 MMOL/L 0.90-1.70 Perfo rmed by certified = LACTP) exposure machine operator at [facility] [id number] 13:48:00 Test Item Value Reference Range Comments GLUBED (test code = GLUBED) 88 MG/DL 65-99 Perf ormed by certified exposure machine operator at [facility] DRUG OF ABUSE SCREEN [id number] 13:43:00 Test Item Value Reference Range Comments [...] by alt ernate methods (i.e., GC/MS) at [facility]. Res ults of screen may not be usedin cr iminal justice, job performance or professionalcred ential review, or custody i ssues. Negative [place] Level ng/ml -------- ----- Cocaine 300 Methamphetamine (Ecstacy) 500 Cannabinoids (TH C) 50 Amphetamine 1000 Barbiturates 200 Benzodiazepines 200 Opiates 300 Phe ncyclidine (PCP) 25 UR HCG [id number] 13:39:00 Test Item Value Reference Range Comments [...] confirmed using aquantitative hCG assay. UA RFLX [id number] 13:38:00 Test Item Value Reference Range Comments [...] (test code = Clean Catch UASPEC) UA [id number] 13:38:00 Test Item Value Reference Range Comments UA WBC (test code = WBCU) #/hpf <10 UA RBC (test code = RBCU) #/hpf NONE SEEN UA SQUAMOUS CELLS (test code = SQU) #/lpf <100 UA RFLX [id number] 13:38:00 Test Item Value Reference Range Comments [...] (test code = Clean Catch UASPEC) UA [id number] 13:38:00 Test Item Value Reference Range Comments UA WBC (test code = WBCU) #/hpf <10 UA RBC (test code = RBCU) #/hpf NONE SEEN UA SQUAMOUS CELLS (test code = SQU) #/lpf <100 CBC W/AUTO [id number] 13:26:00 Test Item Value Reference Range Comments [...] code = BA#) 0.05 x10 3/uL 0.0-0.2 [id number] 19:07:00 Test Item Value Reference Range Comments LEVETIRACETAM (test 28.7 ug/mL 10.0-40.0 This test wa s developed and its code = LEVTAM) performance characteristicsd etermined by [employer]. It has not been cleared orapproved by [facility] Food and Drug Administration.P erformed At: [facility] [id number] [place], [place] [id number] Dias MD Ph:[phone] BASIC METABOLIC [id number] 04:58:00 Test Item Value Reference Range Comments [...] (test code = CA) 8.9 MG/DL 8.7-10.5 [id number] 04:58:00 Test Item Value Reference Range Comments MAGNESIUM (test code = MAG) 1.9 MG/DL 1.8-2.4 CBC W/AUTO [id number] 04:08:00 Test Item Value Reference Range Comments [...] X10 3/uL 0.0-0.2 - MRI BRAIN W/O [id number] 13:51:00 Patient Name: SAHRA NETTLES TIERRA Unit No: [id number] EXAMS: CPT CODE: [id number] MRI BRAIN W/O CONTRAST 41681 Reason: sz INDICATION: Seizure COMPARISON: CT brain, [...] MD Technologist: Andre Self MRI Trscrpt Dt/ (4033)tRAMSESR.DW6 Orig Print D/T: S: 09/17/2018 (1905) [facility] CntNAME: SAHRA NETTLES NOVEMBER [address] PHYS: [place] [address] : 1990 AGE: 27 SEX: F LOC: D.D313 1 PHONE #: [phone] EXAM DATE: 09/17/2018 STATUS: ADM IN FAX #: RAD NO: DC Dt: PAGE 1 Signed [id number] 07:25:00 Test Item Value Reference Range Comments PROLACTIN (test code = 24.6 ng/mL 4.8-23.3 Performed At: [facility] PROLAC) [address] [address]Dnvza Sb Man MD Ph:[phone] UA RFLX MICROSCOPIC [id number] 19:02:00 Test Item Value Reference Range Comments [...] met URINE SOURCE: Clean CatchUA RFLX MICROSCOPIC [id number] 18:56:00 Test Item Value Reference Range Comments [...] (test code = UACULT) URINE SOURCE: Clean [id number] 15:56:00 Test Item Value Reference Range Comments CK (test code = CKT) 34 Units/L 26-192 BASIC METABOLIC [id number] 12:57:00 Test Item Value Reference Range Comments [...] (test code = CA) 8.6 MG/DL 8.7-10.5 [id number] 12:57:00 Test Item Value Reference Range Comments CK (test code = CKT) 32 Units/L 26-192 CBC W/AUTO [id number] 12:33:00 Test Item Value Reference Range Comments [...] 0.0 X10 3/uL 0.0-0.2 TOTAL IRON BINDING [id number] 05:50:00 Test Item Value Reference Range Comments SERUM IRON (test code = IRON) 17 MCG/DL 50-170 TOTAL IRON BINDING CAPACITY (test code = TIBC) 363 MCG/DL 2 80-400 IRON SATURATION (test code = FESAT) 5 % 15-50 [id number] 05:50:00 Test Item Value Reference Range Comments FERRITIN (test code = LULI) 11 NG/ML 3-105 HEPATIC FUNCTION [id number] 05:32:00 Test Item Value Reference Range Comments [...] code = ALKP) - CT HEAD/BRAIN W/O [id number] 20:19:00 Patient Name: SAHRA NETTLES Unit No: [id number] EXAMS: CPT CODE: [id number] CT HEAD/BRAIN W/O CONT 12241 Reason: seizure TECHNIQUE: Contiguous 5 mm images [...] Cristiane Heath Technologist: Edel BURNS Trscrpt Dt/ (2019)t.SDR.DKW Orig Print D/T: S: 09/14/2018 (2021) CTDI: DLP: [facility] NAME: NADINE NETTLESICA November [facility] PHYS: NGA. - Keanu Vázquez [place] [address] : 1990 AGE: 27 SEX: F LOC: D.NER PHONE#: [phone] EXAM DATE: 09/14/2018 STATUS: REG ER FAX #: RAD NO: DC Dt: PAGE 1 Signed Report- XR CHEST 1 [id number] 20:18:00 Patient Name: SAHRA NETTLES [facility] Unit No: [id number] EXAMS: CPT CODE: [id number] XR CHEST 1 V 73327 Reason: screen for pneumonia FINDINGS: Single view ofthe chest shows normal heart size and pulmonary vasculature. The lungs are clear bilaterally. There is no focal infiltrate, pleural effusion or pneumothorax. IMPRESSION: No a cute cardiopulmonary findings at 2018 Reported and signed by: Lashell Jimenez MD CC: Keanu Vázquez MD; Cristiane Heath Technologist: Edel Cade CT Trscrpt Dt/ (2017)Tristan Orig PrintD/T: S: 09/14/2018 (2020) [facility] NAME: NADINE NETTLESICA November [facility] PHYS: - Keanu Váz[place] [address] : 1990 AGE: 27 SEX: F LOC: D.NER PHONE #: [phone] EXAM DATE: STATUS: REG ER FAX #: RAD NO: DC Dt: PAGE 1 Signed ReportHCG SERUM [id number] 20:04:00 Test Item Value Reference Range Comments [...] usi ng aquantitative hCG assay. BASIC METABOLIC [id number] 19:51:00 Test Item Value Reference Range Comments [...] = CA) 9.3 MG/DL 8.7-10.5 CBC W/AUTO [id number] 19:46:00 Test Item Value Reference Range Comments [...] = BA#) 0.05 x10 3/uL 0.0-0.2 BLOOD [id number] 10:00:00 Test Item Value Reference Range Comments CULTURE (BEAKER) (test code = 1095) No growth in 5 days HCG, QUANTITATIVE, [id number] 15:37:00 Test Item Value Reference Range Comments GONADOTROPIN, CHORIONIC (HCG) QUANT (BEAKER) 20877 mIU/mL 0-1 0 (test code = 649) Non- Females: <10 mIU/mL Females: Gestation Age Reference Range(mIU/mL) 0.2-1 Week 5-50 1-2 Weeks 50-500 2-3 Weeks 100-5,000 3-4Weeks 500-10,000 4-5 Weeks 1,000-50,000 5-6 Weeks 10,000-100,000 6-8 Weeks 15,000-200,000 2-3 Months 10,000-100,000COMPREHENSIVE METABOLIC [id number] 15:10:00 Test Item Value Reference Range Comments [...] PATIENT S. CBC W/PLT COUNT & AUTO [id number] 14:53:00 Test Item Value Reference Range Comments [...] (test code = 2801) U/S, , FIRST [id number] 07:52:00Reason for exam:-> Reason for exam:->please include [...] 1 day. An embryonic pole is evident. [place]-rump length measures 0.63 cm, correlating with estimated [...] Garrido Verified Date/Time: 05/17/2017 07:52:37 Reading Location: [facility] C013X Ortho Consult Reading Room PREGNANCY SCREEN, [id number] 05:28:00 Test Item Value Reference Range Comments TEST URINE (BEAKER) (test code = 583) Positive MR, BRAIN, WITHOUT [id number] 18:54:00Reason for exam:->Stroke evaluationFINAL REPORT MRI brain [...] Parra Verified Date/Time: 05/15/2017 18:54:11 Reading Location: [facility] Radiology Reading Room EEG AWAKE AND [id number] 12:08:00Reason for exam:->? nonconvulsive statusDATE OF TEST: 05/15/2017DATE OF REPORT 05/15/2017 ACC: [id number] EE Start time: 1034 Stop time: 1054 ICD-10: R56.9CPT Code: 94730GZNGTVM: 26 y/o woman with epilepsy found down [...] recordings.Marika Smith M.D.Neurophysiology FellowSwathi Harper M.D.Neurophysiology Attending [id number] 04:27:00 Test Item Value Reference Range Comments PROCALCITONIN (BEAKER) (test code = 3036) 0.17 ng/mL <0.05 SEPSIS RISK (ng/mL)Low: 0.05-0.50Intermediate: 0.51-2.00High: >=[id number] 03:15:00 Test Item Value Reference Range Comments PHOSPHORUS (BEAKER) (test code = 604) 3.1 mg/dL 2.3-4.7 [id number] 03:15:00 Test Item Value Reference Range Comments MAGNESIUM (BEAKER) (test code = 627) 1.9 mg/dL 1.6-2.6 BASIC METABOLIC [id number] 03:15:00 Test Item Value Reference Range Comments [...] 200 U/L 29-200 LACTIC ACID, VENOUS, WHOLE [id number] 03:09:00 Test Item Value Reference Range Comments LACTATE BLOOD VENOUS (2) (BEAKER) (test code = 0.6 mmol/L 0 .5-2.2 2872) Effective 10/17/2015: Units/Reference Range ChangeNew: 0.5-2.2 mmol/L Previous: 5-20 mg/dLPROTHROMBIN TIME/[id number] 03:07:00 Test Item Value Reference Range Comments [...] = 2801) RAD, CHEST, 1 VIEW, NON [id number] 01:06:00Reason for exam:->possible infectionShould this be performed [...] MDReport Verified Date/Time: 05/15/2017 01:06:06 Reading Location: [address] Reading Room
[2019-10-23 19:30] LABS: Absolute Lymphocytes (CBC) 1.9 K/uL (0.7-4.9); Basophils % 0.6 % (0-1.3); Hematocrit 39.2 % (36.0-45.0); Lymphocytes % 18.1 % (15.3-44.8); MPV 7.7 fL (7.6-11.3); RBC Red Blood Cell Count 4.75 M/uL (3.86-4.86)
[2019-10-23] MEDS ORDERED: NA CHLORIDE 0.9% 1,000 ML ONE (19:31)
[2019-10-23] MEDS ORDERED: NA CHLORIDE 0.9% 100 ML IV ONE (19:31)
[2019-10-23] MEDS ORDERED: LEVETIRACETAM 500 MG/5 ML VIAL IV ONE (19:31)
[2019-10-23] MEDS ORDERED: PROMETHAZINE INJ 25 MG/ML AMP ONE (19:44)
[2019-10-23 19:47] LABS: BUN Blood Urea Nitrogen 16 mg/dL (7-18); Bicarbonate 28 mmol/L (21-32); Glucose Level 88 mg/dL (74-106); Potassium 3.9 mmol/L (3.5-5.1); Sodium Level 140 mmol/L (136-145)
[2019-10-23 19:57] LABS: Anisocytosis 1+; Blood Morphology Comment NOTED (NOT SEEN); Platelet Estimate ADEQ; Urine White Blood Cell Casts OK
[2019-10-23 20:26] LABS: Urine Blood NEGATIVE (NEG); Urine Glucose NEGATIVE (NEG); Urine Protein NEGATIVE (NEG); Urine Specific Gravity >1.030 (1.005-1.030); Urine pH 6.5 (5.0-7.0)
[2019-10-23 20:28] LABS: Urine Bacteria <20 /HPF (<20); Urine Culture Reflex Order NOT NEEDED; Urine RBC NONE SEEN /HPF (NONE SEEN)
[2019-10-23 20:29] LABS: Barbiturates NEGATIVE (NEGATIVE); Benzodiazepines NEGATIVE (NEGATIVE); Cocaine NEGATIVE (NEGATIVE); METHAMPHETAM NEGATIVE (NEGATIVE); Methadone NEGATIVE (NEGATIVE); Opiates NEGATIVE (NEGATIVE); Phencyclidine NEGATIVE (NEGATIVE); THC Cannibis NEGATIVE (NEGATIVE)
--- NOTE | 2019-10-23 20:35 | EDPHYS ---
Physician Documentation [facility] Name: Heather Hope Age: 28 yrs Sex: Female : 1990 Arrival Date: 10/23/2019 Time: 19:08 Bed 5 Private MD: ED Physician Tariq Doe HPI: 10/22 19:22 This 28 yrs old Female presents to ER via Wheelchair with complaints of snw seizure. 19:22 The patient presents the episode(s) was witnessed, registration. Character of snw seizure(s): Loss of consciousness: the patient did not lose consciousness, Motor activity: blank stare, Incontinence: none, Apnea: Circulation: the patient did not experience evidence of pulse disturbance. Seizure onset: the onset is not known. Context: the seizure(s) was witnessed, registration in lobby. Seizure Hx: Cause: epilepsy, Last seizure: The patient's last seizure 10/12/19, Seizure medications: Keppra. Associated injury: The patient did not suffer any apparent associated injury. Current symptoms: confusion. The patient has experienced similar episodes in the past, chronically. 10/11 - similar presentation. Historical: - Allergies: 19:15 No Known Drug Allergies; ll1 - PMHx: 19:15 Seizures; Anemia; ll1 - PSHx: 19:15 Unable to obtain; ll1 - Social history:: Smoking status: unknown. ROS: 19:22 Constitutional: Negative for fever, chills, and weight loss, Eyes: Negative for injury, snw pain, redness, and discharge, ENT: Negative for injury, pain, and discharge, Neck: Negative for injury, pain, and swelling, Cardiovascular: Negative for chest pain, palpitations, and edema, Respiratory: Negative for shortness of breath, cough, wheezing, and pleuritic chest pain, Abdomen/GI: Negative for abdominal pain, nausea, vomiting, diarrhea, and constipation, Back: Negative for injury and pain, : Negative for injury, bleeding, discharge, and swelling, MS/Extremity: Negative for injury and deformity, Neuro: Negative for headache, weakness, numbness, tingling, and seizure, Psych: Negative for depression, anxiety, suicide ideation, homicidal ideation, and hallucinations. 19:22 Neuro: Positive for seizure activity. snw Exam: 19:21 Head/Face: Normocephalic, atraumatic. Eyes: Pupils equal round and reactive to light, snw extra-ocular motions intact. Lids and lashes normal. Conjunctiva and sclera are non-icteric and not injected. Cornea within normal limits. Periorbital areas with no swelling, redness, or edema. ENT: Nares patent. No nasal discharge, no septal abnormalities noted. Tympanic membranes are normal and external auditory canals are clear. Oropharynx with no redness, swelling, or masses, exudates, or evidence of obstruction, uvula midline. Mucous membranes moist. Neck: Trachea midline, no thyromegaly or masses palpated, and no cervical lymphadenopathy. Supple, full range of motion without nuchal rigidity, or vertebral point tenderness. No Meningismus. Chest/axilla: Normal chest wall appearance and motion. Nontender with no deformity. No lesions are appreciated. Cardiovascular: Regular rate and rhythm with a normal S1 and S2. No gallops, murmurs, or rubs. Normal PMI, no JVD. No pulse deficits. Respiratory: Lungs have equal breath sounds bilaterally, clear to auscultation and percussion. No rales, rhonchi or wheezes noted. No increased work of breathing, no retractions or nasal flaring. Abdomen/GI: Soft, non-tender, with normal bowel sounds. No distension or tympany. No guarding or rebound. No evidence of tenderness throughout. Back: No spinal tenderness. No costovertebral tenderness. Full range of motion. MS/ Extremity: Pulses equal, no cyanosis. Neurovascular intact. Full, normal range of motion. Neuro: Awake and alert, GCS 15, oriented to person, place, time, and situation. Cranial nerves II-XII grossly intact. Motor strength 5/5 in all extremities. Sensory grossly intact. Cerebellar exam normal. Normal gait. Psych: Awake, alert, with orientation to person, place and time. Behavior, mood, and affect are within normal limits. 19:21 Constitutional: The patient appears agitated, obese. 19:21 Skin: Appearance: normal except for affected area, healing burn to right forearm/thigh. Vital Signs: 19:12 BP 129 / 86; Pulse 108; Resp 18; Temp 97.9; Pulse Ox 100% ; Pain 0/10; ll1 20:30 BP 123 / 86; Pulse 99; Resp 16; Pulse Ox 100% on R/A; jb4 MDM: 19:16 Patient medically screened. snw 20:35 Data reviewed: vital signs, nurses notes. Data interpreted: Pulse oximetry: on room air snw is 100 %. Interpretation: normal. Counseling: I had a detailed discussion with the patient and/or guardian regarding: the historical points, exam findings, and any diagnostic results supporting the discharge/admit diagnosis, lab results, the need for outpatient follow up, to return to the emergency department if symptoms worsen or persist or if there are any questions or concerns that arise at home. Special discussion: Based on the history and exam findings, there is no indication for further emergent testing or inpatient evaluation. I discussed with the patient/guardian the need to see the neurologist for further evaluation of the symptoms. I discussed with the patient/guardian the need to see the primary care provider for further evaluation of the symptoms. 10/22 19:15 Order name: UDS; Complete Time: 20:33 snw 10/22 19:15 Order name: Urine Microscopic Only; Complete Time: 20:33 snw 10/22 19:15 Order name: CBC with Diff; Complete Time: 20:00 snw 10/22 19:15 Order name: Chem 7; Complete Time: 19:47 snw 10/22 19:32 Order name: CBC Smear Scan; Complete Time: 20:00 EDMS 10/22 20:20 Order name: Urine Dipstick--Ancillary (enter results); Complete Time: 20:27 mw2 10/22 19:15 Order name: Urine Test (obtain specimen); Complete Time: 20:06 snw 10/22 19:15 Order name: Seizure Precautions; Complete Time: 20:06 snw 10/22 20:20 Order name: Urine --Ancillary (enter results); Complete Time: 20:27 mw2 Administered Medications: 19:30 Drug: Keppra 500 mg Route: IV; Rate: calculated rate; Site: right antecubital; jb4 20:00 Follow up: Response: No adverse reaction; IV Status: Completed infusion; IV Intake: jb4 100ml 19:30 Drug: NS 0.9% 1000 ml Route: IV; Rate: 1 bolus; Site: right antecubital; jb4 20:30 Follow up: Response: No adverse reaction; IV Status: Completed infusion; IV Intake: jb4 1000ml 19:40 Drug: Phenergan 12.5 mg Route: IVP; Site: right antecubital; jb4 20:10 Follow up: Response: No adverse reaction; Nausea is decreased jb4 Disposition: 10/23 07:08 Co-signature as Attending Physician, Tariq Doe MD I agree with the assessment and [facility] plan of care. Disposition: 10/23/19 20:34 Discharged to Home. Impression: Epilepsy and recurrent seizures. - Condition is Stable. - Discharge Instructions: Seizure, Adult. - Medication Reconciliation Form, Thank You Letter, Antibiotic Education, Prescription Opioid Use form. - Follow up: Emergency Department; When: As needed; Reason: Worsening of condition. Follow up: Private Physician; When: 1 - 2 days; Reason: Recheck today's complaints, Continuance of care, Re-evaluation by your physician. Signatures: Dispatcher [employer] EDMS Ruby Snider, REVENUE ACCOUNTANT-C REVENUE ACCOUNTANT-Csnw Don Ag RN RN jb4 Brittnee Tobar mw2 Donald Marcum RN RN 1 Tariq Doe MD MD [facility] Corrections: (The following items were deleted from the chart) 10/22 19:22 19:22 Skin: Positive for snw snw 20:59 20:34 10/23/2019 20:34 Discharged to Home. Impression: Epilepsy and recurrent seizures. mw2 Condition is Stable. Forms are Medication Reconciliation Form, Thank You Letter, Antibiotic Education, Prescription Opioid Use. Follow up: Emergency Department; When: As needed; Reason: Worsening of condition. Follow up: Private Physician; When: 1 - 2 days; Reason: Recheck today's complaints, Continuance of care, Re-evaluation by your physician. snw
--- NOTE | 2019-10-23 20:35 | ER ---
Nurse's Notes [facility] Name: Heather Hope Age: 28 yrs Sex: Female : 1990 Arrival Date: 10/23/2019 Time: 19:08 Bed 5 Private MD: Diagnosis: Epilepsy and recurrent seizures Presentation: 10/22 19:12 Chief complaint: Patient states: Came to ER window altered. Doesn't know where she is ll1 or what she is doing here. Fell out of chair while trying to register. No seizure activity noted. + N/V. Very altered, responds to painful stimuli. Coronavirus screen: Proceed with normal triage. Patient denies a cough. Patient denies shortness of breath or difficulty breathing. Patient denies measured and/or subjective temperature greater than 100.4F prior to today's visit. Patient denies travel on a cruise ship or to a country the [facility] currently lists as an affected area. Patient denies contact with known and/or suspected case of COVID-19. Ebola Screen: Patient denies travel to an Ebola-affected area in the 21 days before illness onset. Initial Sepsis Screen: Does the patient meet any 2 criteria? HR > 90 bpm. No. Patient's initial sepsis screen is negative. Does the patient have a suspected source of infection? No. Patient's initial sepsis screen is negative. Risk Assessment: Do you want to hurt yourself or someone else? Unable to obtain. Onset of symptoms is unknown. 19:12 Method Of Arrival: Wheelchair ll1 19:12 Acuity: DARLYN 2 ll1 Historical: - Allergies: 19:15 No Known Drug Allergies; ll1 - PMHx: 19:15 Seizures; Anemia; ll1 - PSHx: 19:15 Unable to obtain; ll1 - Social history:: Smoking status: unknown. Screenin:15 Abuse screen: Denies threats or abuse. Nutritional screening: No deficits noted. jb4 Tuberculosis screening: No symptoms or risk factors identified. Fall Risk Secondary diagnosis (15 points) Seizures. Gait- Impaired (20 pts.). Mental Status- Overestimates/Forgets Limitations (15 pts.). Assessment: 19:15 General: Appears in no apparent distress. uncomfortable, Behavior is uncooperative. jb4 Pain: Denies pain. Neuro: Level of Consciousness is post ictal, Oriented to none. Cardiovascular: Patient's skin is warm and dry. Respiratory: Airway is patent Respiratory effort is even, unlabored, Respiratory pattern is regular, symmetrical. GI: Pt is actively vomiting. : No signs and/or symptoms were reported regarding the genitourinary system. EENT: No signs and/or symptoms were reported regarding the EENT system. Derm: Skin is pink, warm \T\ dry. Musculoskeletal: Circulation, motion, and sensation intact. Range of motion: intact in all extremities. 19:15 Injury Description: Pt has healing scabbed over gomez on her right posterior forearm, jb4 and right lateral thigh. 20:30 Reassessment: Patient appears in no apparent distress at this time. Patient and/or jb4 family updated on plan of care and expected duration. Pain level reassessed. Patient is alert, oriented x 3, equal unlabored respirations, skin warm/dry/pink. 20:50 Reassessment: Patient appears in no apparent distress at this time. Patient and/or jb4 family updated on plan of care and expected duration. Pain level reassessed. Patient is alert, oriented x 3, equal unlabored respirations, skin warm/dry/pink. Pt verbalized understanding of D/c and follow up instructions. Ambulates with steady gait. Is not longer vomiting or exhibiting signs of seizure like activity. Assisted to vehicle via wheelchair. Vital Signs: 19:12 BP 129 / 86; Pulse 108; Resp 18; Temp 97.9; Pulse Ox 100% ; Pain 0/10; ll1 20:30 BP 123 / 86; Pulse 99; Resp 16; Pulse Ox 100% on R/A; jb4 ED Course: 19:08 Patient arrived in ED. lp1 19:15 Triage completed. ll1 19:15 Ruby Snider FNP-C [facility] snw 19:15 Tariq Doe MD is Attending Physician. snw 19:15 Patient has correct armband on for positive identification. Placed in gown. Bed in low jb4 position. Call light in reach. Side rails up X2. Seizure precautions initiated. weekday babysitter on. Pulse ox on. NIBP on. 19:16 Arm band placed on Patient placed in an exam room, on a stretcher. ll1 19:31 Aniceto See RN is Primary Nurse. rv 20:45 No provider procedures requiring assistance completed. IV discontinued, intact, jb4 bleeding controlled, No redness/swelling at site. Pressure dressing applied. Administered Medications: 19:30 Drug: Keppra 500 mg Route: IV; Rate: calculated rate; Site: right antecubital; jb4 20:00 Follow up: Response: No adverse reaction; IV Status: Completed infusion; IV Intake: jb4 100ml 19:30 Drug: NS 0.9% 1000 ml Route: IV; Rate: 1 bolus; Site: right antecubital; jb4 20:30 Follow up: Response: No adverse reaction; IV Status: Completed infusion; IV Intake: jb4 1000ml 19:40 Drug: Phenergan 12.5 mg Route: IVP; Site: right antecubital; jb4 20:10 Follow up: Response: No adverse reaction; Nausea is decreased jb4 Intake: 20:00 IV: 100ml; Total: 100ml. jb4 20:30 IV: 1000ml; Total: 1100ml. jb4 Outcome: 20:34 Discharge ordered by . snw 20:45 Discharged to home via wheelchair, with family. jb4 20:45 Condition: stable 20:45 Discharge instructions given to patient, family, Instructed on discharge instructions, follow up and referral plans. Demonstrated understanding of instructions, follow-up care. 20:59 Patient left the ED. mw2 Signatures: Ruby Snider, MEDICAL REPRESENTATIVE-C MEDICAL REPRESENTATIVE-Csnw Marla Gibson RN RN lp1 Don Ag RN RN jb4 Brittnee Tobar mw2 Aniceto See RN RN rv Lewis, Lynsay RN RN ll1 Corrections: (The following items were deleted from the chart) 22:34 19:15 Derm: Skin is intact, Skin is pink, warm \T\ dry. jb4 jb4
[2019-10-23 21:10] VITALS: BP 129/86; TEMP 97.9; O2SAT 100
--- NOTE | 2019-10-24 18:46 | EKG ---
Test Date: 2019-10-23 Test Time: 19:24:36 Landscape Crew Leader: ANGELO MEASUREMENT RESULTS: Intervals: Rate: 109 MO: 140 QRSD: 76 QT: 322 QTc: 433 [place]: P: 47 MO: 140 QRS: 11 T: 21 INTERPRETIVE STATEMENTS: Sinus tachycardia Otherwise normal ECG Compared to ECG 10/12/2019 15:29:32 No significant changes Electronically Signed On 10-24-19 18:44:03 CDT by Merrill Guzman
== END 2019-10-23 20:59 | disposition home or self-care (01) ==
LOC: ER 19:01
DX: G40.909 Epilepsy, unspecified, not intractable, without status epilepticus (principal)
CPT/HCPCS: 96365; 93005; 85025; 80048; 36415; 81025; 80307 ×8; 96375; 99284; J2550; J1953; J7030; 81003; 81015

== ENCOUNTER 2019-11-09 23:03 | Emergency (ER) | payer OTHER ==
--- OUTSIDE RECORDS SUMMARY | 2019-11-09 23:05 | XMS REPORT | Clinical Summary ---
:[address] [facility] Address [address] [place] [address] Care Team Providers Name Role Phone Unavailable Primary Care Provider Unavailable Allergies No Known Allergies Medications Medication Sig Dispensed Refills Start Date End Date Status levETIRAcetam (KEPPRA) Take 1 tablet 60 tablet 2 05/19/2017 Active 1000 MG tablet (1,000 mg total) by mouth 2 (two) times daily. vitamin Take 1 tablet by 90 tablet 3 05/20/2017 Active w/jhnmswz-grkn-[id number] mouth daily. ( PLUS) 27 mg iron- [...] Not on file Results Not on fileafter 11/08/2018 Insurance Payer Benefit Plan / Group Subscriber ID Type Phone [facility] MEDICAID [place]ICAID [place] xxxxxxxxx Medicaid [id number] 1 Advance Directives For more information, please contact: [employer] Info [facility] [place], [place] [phone] Code Status Date Activated Date Inactivated Comments Full Code 05/14/2017 10:10 PM 05/19/2017 2:55 PM This code status was determined by: Patient
--- OUTSIDE RECORDS SUMMARY | 2019-11-09 23:08 | XMS REPORT ---
:1990 Author Organization [facility] t Address [address] [place] [address] Care Team Providers Name Role Phone Aleksandar MENDOZA Attending Clinician Rita SABA Attending Clinician Magda Adam MD Attending Clinician BRANDO RODAS Attending Clinician Unavailable Juliano DEJESUS Admitting Clinician Unavailable Payers Payer Name Policy Type Policy Number Effective Date Expiration Date S ource Problems This patient has no known problems. Allergies, Adverse Reactions, Alerts Allergy Allergy Status Severity Reaction(s) Onset Inactive Treating Comm ents Source Name Type Date Date Clinician No Known DA Active U [facility] No Known DA Active U 2016-06 [facility] 07-08 [facility] 00:00: Jess 00 [facility] Medications This patient has no known medications. Procedures This patient has no known procedures. Encounters Start End Encounter Admission Attending Care Care Encounter Source Date/Time Date/Time Type Type Clinicians Facility Department ID 2019-10-24 2019-10-24 [facility] [id number] 14:33:37 23:59:00 Encounter Sj OCHOA [id number] MEDICAL [id number] [place] [id number] 2019-10-11 2019-10-11 [id number] 00:00:00 00:00:00 Cecilia Leach [id number] [place] [id number] Professio [phone] [address] 2019-10-06 2019-10-06 [facility] [id number] 08:13:12 15:30:52 ne Visit Cecilia Leach [id number] [place] [id number] Professio [phone] [address] 2019-08-12 2019-08-12 Case Ad, [facility] [id number] 00:00:00 00:00:00 Management Daina Leach [id number] [place] [id number] Professio [phone] [address] 2019-08-12 2019-08-12 Telephone Ad, [facility] [id number] 00:00:00 00:00:00 Daina Leach [id number] [place] [id number] Professio [phone] [address] 2019-08-10 2019-08-10 Office Adum, [facility] [id number] 14:12:35 15:35:54 Visit Daina Leach [id number] [place] [id number] Professio [phone] [address] Results Test Description Test Time Test Comments Results Result Comments Source RPR Qualitative 2019-10-25 16:47:08 Test Item Value Reference Range Interpretation Comme nts RPR Qual (test code = RPR Qual) Non-Reactive Non-Reactive Reactive Control (test code = Reactive Control) Reactive Weak Reactive Control (test code = Weak Reactive Weak Reactive Control) Non-Reactive Control (test code = Non-Reactive Non-Reactive Control) Lot # (test code = Lot #) [id number] Expiration Dt (test code = Expiration Dt) 06-14-2020 N Thyroid Stimulating [id number] 06:31:44 Test Item Value Reference Range Interpretation Comments TSH (test code = TSH) 3.830 mIU/mL 0.270-4.200 Lipid [id number] 06:24:40 Test Item Value Reference Range Interpretation Comments Cholesterol Total 152 mg/dL 0-200 RISK OF HE ART (test code = DISEASEPublishe d by Cholesterol Total) [employer] Laurel lyte Optimal Borderl ine Increased RiskC HOL <200 200-239 >2 40TRIG <150 150-199 >2 00HDL Male >60 <40H DL Female >60 <5 0LDL <100 130-159 >1 60LDL Near optimal is 100-129 Triglycerides (test 43 mg/dL 9-200 code = Triglycerides) HDL (test code = HDL) 66 mg/dL 50-60 H LDL (test code = LDL) 77 mg/dL 0-130 The eq uation being used in this calcula tion is LDL = (Chol - H DL) - (Trig / 5) VLDL (test code = 9 mg/dL 5-40 The equati on being used VLDL) in this calcula tion is VLDL = Trig / 5 Chol/HDL (test code = 2.3 ratio 0.0-4.4 Chol/HDL) LDL/HDL Ratio (test 1 N The equa tion being used code = LDL/HDL Ratio) in thi s calculation is LDL/HDL Ratio=L DL Calc/HDL Chol Urine Drug [id number] 21:53:06 Test Item Value Reference Range Interpretation Comments Amphetamine Screen Ur Negative Negative (test code = Amphetamine Screen Ur) Barbiturate Screen Ur Negative Negative (test code = Barbiturate Screen Ur) Benzodiazepines Ur (test Negative Negative code = Benzodiazepines Ur) Cocaine Screen Ur (test Negative Negative code = Cocaine Screen Ur) U Methadone Scr (test Negative Negative code = U Methadone Scr) Opiate Screen Ur (test Negative Negative code = Opiate Screen Ur) U PCP Scrn (test code = Negative Negative U PCP Scrn) Cannabinoid Screen Ur Negative Negative (test code = Cannabinoid Screen Ur) U TCA (test code = U Negative Negative The res ults of all TCA) drug screen devin ts are only preliminar y. Clinical consideration a nd professional ju dgment should be appli ed to any drug of abu se test result, particularly wh en preliminary pos itive results are obt ained. Please order a separate confir matory test if desired . Urinalysis with Culture, if [id number] 21:40:53 Test Item Value Reference Range Interpretation Comments UA Color (test code = UA Color) YELLO Yellow UA Appear (test code = UA CLEAR Clear Appear) UA pH (test code = UA pH) 5.0 UA Spec Grav (test code = UA 1.030 1.001-1.035 Spec Grav) UA Glucose (test code = UA NEG Negative Glucose) UA Bili (test code = UA Bili) NEG Negative UA Ketones (test code = UA NEG Negative Ketones) UA Blood (test code = UA Blood) NEG Negative UA Protein (test code = UA NEG Negative Protein) UA Urobilinogen (test code = UA .2 mg/dL >0.2 Urobilinogen) UA Nitrite (test code = UA NEG Negative Nitrite) UA Leuk Est (test code = UA NEG Negative Leuk Est) UA Micro Ind? (test code = UA Not Indicated Not Indicated Micro Ind?) Comprehensive Metabolic [id number] 21:34:15 Test Item Value Reference Range Interpretation Comments Sodium Level (test code = Sodium 139.0 mmol/L 135.0-145.0 Level) Potassium Level (test code = 4.0 mmol/L 3.5-5.1 Potassium Level) Chloride Level (test code = 104 mmol/L 98-105 Chloride Level) CO2 (test code = CO2) 24 mmol/L 22-29 Anion Gap (test code = Anion 11 mmol/L 7-16 Gap) BUN (test code = BUN) 9.90 mg/dL 6.00-20.00 Creatinine Level (test code = 0.60 mg/dL 0.50-0.90 Creatinine Level) BUN/Creat Ratio (test code = 16 N BUN/Creat Ratio) Glucose Level (test code = 95 mg/dL 70-115 Glucose Level) Calcium Level (test code = 9.0 mg/dL 8.3-10.5 Calcium Level) Alk Phos (test code = Alk Phos) 83 U/L 35-104 Bilirubin Total (test code = <0.1 mg/dL 0.1-0.9 Bilirubin Total) Albumin Level (test code = 4.3 g/dL 3.5-5.2 Albumin Level) Protein Total (test code = 7.0 g/dL 6.4-8.3 Protein Total) ALT (test code = ALT) 40 U/L 1-33 H AST (test code = AST) 48 U/L 1-32 H Globulin (test code = Globulin) 2.7 g/dL 2.9-3.1 L A/G Ratio (test code = A/G 1.6 ratio N Ratio) Alcohol [id number] 21:34:15 Test Item Value Reference Range Interpretation Comments Ethanol Level (test <0.00 g/dL 0.00-0.01 Intoxica vandana 0.080 g/dL code = Ethanol or more Level) Ethanol Inst (test <0 N code = Ethanol Inst) Comprehensive Metabolic [id number] 21:34:15 Test Item Value Reference Range Interpretation Comments Sodium Level (test 139.0 mmol/L 135.0-145.0 code = Sodium Level) Potassium Level 4.0 mmol/L 3.5-5.1 (test code = Potassium Level) Chloride Level (test 104 mmol/L 98-105 code = Chloride Level) CO2 (test code = 24 mmol/L 22-29 CO2) Anion Gap (test code 11 mmol/L 7-16 = Anion Gap) BUN (test code = 9.90 mg/dL 6.00-20.00 BUN) Creatinine Level 0.60 mg/dL 0.50-0.90 (test code = Creatinine Level) BUN/Creat Ratio 16 N (test code = BUN/Creat Ratio) Glucose Level (test 95 mg/dL 70-115 code = Glucose Level) Calcium Level (test 9.0 mg/dL 8.3-10.5 code = Calcium Level) Alk Phos (test code 83 U/L 35-104 = Alk Phos) Bilirubin Total <0.1 mg/dL 0.1-0.9 (test code = Bilirubin Total) Albumin Level (test 4.3 g/dL 3.5-5.2 code = Albumin Level) Protein Total (test 7.0 g/dL 6.4-8.3 code = Protein Total) ALT (test code = 40 U/L 1-33 H ALT) AST (test code = 48 U/L 1-32 H AST) Globulin (test code 2.7 g/dL 2.9-3.1 L = Globulin) A/G Ratio (test code 1.6 ratio N = A/G Ratio) eGFR AA (test code = >60 N eGFR (e stimated eGFR AA) mL/min/1.73 m2 Glomerular Filtration Rate ) is an estimated va lue, calculated from the patient's serum creatinine usin g the MDRD equation. It is NOT the patient 's actual GFR. The eGFR provides a more clinically usef ul measure of kidn ey disease than se rum creatinine alone.This calculation nisa es sex and race in to account, if the information is provided. If th e race is not provided, and t he patient is -Yanira n, multiply by 1.2 12. If sex is not provided, and t he patient is fema le, multiply by 0.7 42. Results for pat ients <18 years of ag e have not been validated by th e MDRD study and should be interpreted wit h caution. eGFR R esult Interpretation: eGFR > or = 60 is in the Normal RangeeGF R < 60 may mean kid shannan diseaseeGFR < 1 5 may mean kidney failure Rang es recommended by the National Kidney Foundation, http://nkdep.ni h.gov Comprehensive Metabolic [id number] 21:34:15 Test Item Value Reference Range Interpretation Comments Sodium Level (test 139.0 mmol/L 135.0-145.0 code = Sodium Level) Potassium Level 4.0 mmol/L 3.5-5.1 (test code = Potassium Level) Chloride Level (test 104 mmol/L 98-105 code = Chloride Level) CO2 (test code = 24 mmol/L 22-29 CO2) Anion Gap (test code 11 mmol/L 7-16 = Anion Gap) BUN (test code = 9.90 mg/dL 6.00-20.00 BUN) Creatinine Level 0.60 mg/dL 0.50-0.90 (test code = Creatinine Level) BUN/Creat Ratio 16 N (test code = BUN/Creat Ratio) Glucose Level (test 95 mg/dL 70-115 code = Glucose Level) Calcium Level (test 9.0 mg/dL 8.3-10.5 code = Calcium Level) Alk Phos (test code 83 U/L 35-104 = Alk Phos) Bilirubin Total <0.1 mg/dL 0.1-0.9 (test code = Bilirubin Total) Albumin Level (test 4.3 g/dL 3.5-5.2 code = Albumin Level) Protein Total (test 7.0 g/dL 6.4-8.3 code = Protein Total) ALT (test code = 40 U/L 1-33 H ALT) AST (test code = 48 U/L 1-32 H AST) Globulin (test code 2.7 g/dL 2.9-3.1 L = Globulin) A/G Ratio (test code 1.6 ratio N = A/G Ratio) eGFR AA (test code = >60 N eGFR (e stimated eGFR AA) mL/min/1.73 m2 Glomerular Filtration Rate ) is an estimated va lue, calculated from the patient's serum creatinine usin g the MDRD equation. It is NOT the patient 's actual GFR. The eGFR provides a more clinically usef ul measure of kidn ey disease than se rum creatinine alone.This calculation nisa es sex and race in to account, if the information is provided. If th e race is not provided, and t he patient is -Yanira n, multiply by 1.2 12. If sex is not provided, and t he patient is fema le, multiply by 0.7 42. Results for pat ients <18 years of ag e have not been validated by th e MDRD study and should be interpreted wit h caution. eGFR R esult Interpretation: eGFR > or = 60 is in the Normal RangeeGF R < 60 may mean kid shannan diseaseeGFR < 1 5 may mean kidney failure Rang es recommended by the National Kidney Foundation, http://nkdep.ni h.gov eGFR Non-AA (test >60.00 N eGFR (shae mated code = eGFR Non-AA) mL/min/1.73 m2 Glomer ular Filtration Rate ) is an estimated va lue, calculated from the patient's serum creatinine usin g the MDRD equation. It is NOT the patient 's actual GFR. The eGFR provides a more clinically usef ul measure of kidn ey disease than se rum creatinine alone.This calculation nisa es sex and race in to account, if the information is provided. If th e race is not provided, and t he patient is -Yanira n, multiply by 1.2 12. If sex is not provided, and t he patient is fema le, multiply by 0.7 42. Results for pat ients <18 years of ag e have not been validated by th e MDRD study and should be interpreted wit h caution. eGFR R esult Interpretation: eGFR > or = 60 is in the Normal RangeeGF R < 60 may mean kid shannan diseaseeGFR < 1 5 may mean kidney failure Rang es recommended by the National Kidney Foundation, http://nkdep.ni h.gov Complete Blood Count with [id number] 21:15:24 Test Item Value Reference Range Interpretation Comments WBC (test code = WBC) 11.5 x10 4.4-10.5 H RBC (test code = RBC) 4.38 x10 3.75-5.20 Hgb (test code = Hgb) 11.5 g/dL 12.2-14.8 L Hct (test code = Hct) 38.1 % 36.5-44.4 MCV (test code = MCV) 87.00 fL 80.00-100.00 MCHC (test code = 30.20 g/dL 32.00-37.50 L MCHC) RDW CV (test code = 18.2 % 11.5-14.5 H RDW CV) MCH (test code = MCH) 26.3 pg 27.0-32.5 L Platelets (test code = 306.0 x10 140.0-440.0 Platelets) MPV (test code = MPV) 9.2 fL N Slide Review (test Auto Auto Result cr eated by code = Slide Review) GL_SJM_ SLIDE_REV_AUTO nRBC (test code = 0 N nRBC) NRBC Abs (test code = 0.00 x10 N NRBC Abs) IPF (test code = IPF) 0 % N Automated [id number] 21:15:24 Test Item Value Reference Range Interpretation Comments Neutro Auto (test code = Neutro 54.3 % 36.0-70.0 Auto) Lymph Auto (test code = Lymph Auto) 32.3 % 12.0-44.0 Fisher Auto (test code = Fisher Auto) 11.1 % 0.0-11.0 H Eos, Auto (test code = Eos, Auto) 1.3 % 0.0-7.0 Basophil Auto (test code = Basophil 0.7 % 0.0-2.0 Auto) Neutro Absolute (test code = Neutro 6.2 x10 1.6-7.4 Absolute) Lymph Absolute (test code = Lymph 3.71 x10 .50-4.60 Absolute) Fisher Absolute (test code = Fisher 1.28 x10 .00-1.20 H Absolute) Eos Absolute (test code = Eos 0.15 x10 0.00-0.74 Absolute) Baso Absolute (test code = Baso 0.08 x10 0.00-0.21 Absolute) IG [id number] 21:15:24 Test Item Value Reference Range Interpretation Comments IG (test code = IG) 0.3 % 0.0-5.0 IG Abs (test code = IG Abs) 0 x10 N HCG Qualitative [id number] 20:45:17 Test Item Value Reference Range Interpretation Comments hCG Ur (test code = Negative If the r esult is hCG Ur) "Negative" in p atients suspected to be , recom mend retest with a s ample obtained 48 to 72 hours later, or by ordering a quantitative as say. If the result i s "Borderline" te sting should be repea vandana in 48 to 72 hours. Lot # (test code = [id number] N Lot #) Expiration Dt (test 2020-12-12 N code = Expiration Dt) Neg Control (test Negative code = Neg Control) Pos Control (test Positive code = Pos Control) Internal QC (test Acceptable code = Internal QC) RPR [id number] 12:07:58 Test Item Value Reference Range Interpretation Comments RPR Qual (test code = RPR Qual) Non-Reactive Non-Reactive Reactive Control (test code = Reactive Reactive Control) Weak Reactive Control (test Weak Reactive code = Weak Reactive Control) Non-Reactive Control (test code Non-Reactive = Non-Reactive Control) Lot # (test code = Lot #) [id number] N Expiration Dt (test code = 04-14-2020 N Expiration Dt) Thyroid Stimulating [id number] 07:59:52 Test Item Value Reference Range Interpretation Comments TSH (test code = TSH) 0.717 mIU/mL 0.270-4.200 Lipid [id number] 07:52:46 Test Item Value Reference Range Interpretation Comments Cholesterol Total 141 mg/dL 0-200 RISK OF HE ART (test code = DISEASEPublishe d by Cholesterol Total) [employer] Laurel lyte Optimal Borderl ine Increased RiskC HOL <200 200-239 >2 40TRIG <150 150-199 >2 00HDL Male >60 <40H DL Female >60 <5 0LDL <100 130-159 >1 60LDL Near optimal is 100-129 Triglycerides (test 59 mg/dL 9-200 code = Triglycerides) HDL (test code = HDL) 57 mg/dL 50-60 LDL (test code = LDL) 73 mg/dL 0-130 The eq uation being used in this calcula tion is LDL = (Chol - H DL) - (Trig / 5) VLDL (test code = 12 mg/dL 5-40 The equati on being used VLDL) in this calcula tion is VLDL = Trig / 5 Chol/HDL (test code = 2.5 ratio 0.0-4.4 Chol/HDL) LDL/HDL Ratio (test 1 N The equa tion being used code = LDL/HDL Ratio) in thi s calculation is LDL/HDL Ratio=L DL Calc/HDL Chol Urine Drug [id number] 15:27:40 Test Item Value Reference Range Interpretation Comments Amphetamine Screen Ur Negative Negative (test code = Amphetamine Screen Ur) Barbiturate Screen Ur Negative Negative (test code = Barbiturate Screen Ur) Benzodiazepines Ur (test POSITIVE Negative A code = Benzodiazepines Ur) Cocaine Screen Ur (test Negative Negative code = Cocaine Screen Ur) U Methadone Scr (test Negative Negative code = U Methadone Scr) Opiate Screen Ur (test Negative Negative code = Opiate Screen Ur) U PCP Scrn (test code = Negative Negative U PCP Scrn) Cannabinoid Screen Ur Negative Negative (test code = Cannabinoid Screen Ur) U TCA (test code = U Negative Negative The res ults of all TCA) drug screen devin ts are only preliminar y. Clinical consideration a nd professional ju dgment should be appli ed to any drug of abu se test result, particularly wh en preliminary pos itive results are obt ained. Please order a separate confir matory test if desired . Comprehensive Metabolic [id number] 15:15:20 Test Item Value Reference Range Interpretation Comments Sodium Level (test code = Sodium 140.0 mmol/L 135.0-145.0 Level) Potassium Level (test code = 3.8 mmol/L 3.5-5.1 Potassium Level) Chloride Level (test code = 103 mmol/L 98-105 Chloride Level) CO2 (test code = CO2) 24 mmol/L 22-29 Anion Gap (test code = Anion 13 mmol/L 7-16 Gap) BUN (test code = BUN) 7.20 mg/dL 6.00-20.00 Creatinine Level (test code = 0.70 mg/dL 0.50-0.90 Creatinine Level) BUN/Creat Ratio (test code = 10 N BUN/Creat Ratio) Glucose Level (test code = 135 mg/dL 70-115 H Glucose Level) Calcium Level (test code = 9.4 mg/dL 8.3-10.5 Calcium Level) Alk Phos (test code = Alk Phos) 95 U/L 35-104 Bilirubin Total (test code = 0.2 mg/dL 0.1-0.9 Bilirubin Total) Albumin Level (test code = 5.0 g/dL 3.5-5.2 Albumin Level) Protein Total (test code = 7.7 g/dL 6.4-8.3 Protein Total) ALT (test code = ALT) 24 U/L 1-33 AST (test code = AST) 24 U/L 1-32 Globulin (test code = Globulin) 2.7 g/dL 2.9-3.1 L A/G Ratio (test code = A/G 1.9 ratio N Ratio) Comprehensive Metabolic [id number] 15:15:20 Test Item Value Reference Range Interpretation Comments Sodium Level (test 140.0 mmol/L 135.0-145.0 code = Sodium Level) Potassium Level 3.8 mmol/L 3.5-5.1 (test code = Potassium Level) Chloride Level (test 103 mmol/L 98-105 code = Chloride Level) CO2 (test code = 24 mmol/L 22-29 CO2) Anion Gap (test code 13 mmol/L 7-16 = Anion Gap) BUN (test code = 7.20 mg/dL 6.00-20.00 BUN) Creatinine Level 0.70 mg/dL 0.50-0.90 (test code = Creatinine Level) BUN/Creat Ratio 10 N (test code = BUN/Creat Ratio) Glucose Level (test 135 mg/dL 70-115 H code = Glucose Level) Calcium Level (test 9.4 mg/dL 8.3-10.5 code = Calcium Level) Alk Phos (test code 95 U/L 35-104 = Alk Phos) Bilirubin Total 0.2 mg/dL 0.1-0.9 (test code = Bilirubin Total) Albumin Level (test 5.0 g/dL 3.5-5.2 code = Albumin Level) Protein Total (test 7.7 g/dL 6.4-8.3 code = Protein Total) ALT (test code = 24 U/L 1-33 ALT) AST (test code = 24 U/L 1-32 AST) Globulin (test code 2.7 g/dL 2.9-3.1 L = Globulin) A/G Ratio (test code 1.9 ratio N = A/G Ratio) eGFR AA (test code = >60 N eGFR (e stimated eGFR AA) mL/min/1.73 m2 Glomerular Filtration Rate ) is an estimated va lue, calculated from the patient's serum creatinine usin g the MDRD equation. It is NOT the patient 's actual GFR. The eGFR provides a more clinically usef ul measure of kidn ey disease than se rum creatinine alone.This calculation nisa es sex and race in to account, if the information is provided. If th e race is not provided, and t he patient is -Yanira n, multiply by 1.2 12. If sex is not provided, and t he patient is fema le, multiply by 0.7 42. Results for pat ients <18 years of ag e have not been validated by th e MDRD study and should be interpreted wit h caution. eGFR R esult Interpretation: eGFR > or = 60 is in the Normal RangeeGF R < 60 may mean kid shannan diseaseeGFR < 1 5 may mean kidney failure Rang es recommended by the National Kidney Foundation, http://nkdep.ni h.gov Alcohol [id number] 15:15:20 Test Item Value Reference Range Interpretation Comments Ethanol Level (test <0.00 g/dL 0.00-0.01 Intoxica vandana 0.080 g/dL code = Ethanol or more Level) Ethanol Inst (test <0 N code = Ethanol Inst) Comprehensive Metabolic [id number] 15:15:20 Test Item Value Reference Range Interpretation Comments Sodium Level (test 140.0 mmol/L 135.0-145.0 code = Sodium Level) Potassium Level 3.8 mmol/L 3.5-5.1 (test code = Potassium Level) Chloride Level (test 103 mmol/L 98-105 code = Chloride Level) CO2 (test code = 24 mmol/L 22-29 CO2) Anion Gap (test code 13 mmol/L 7-16 = Anion Gap) BUN (test code = 7.20 mg/dL 6.00-20.00 BUN) Creatinine Level 0.70 mg/dL 0.50-0.90 (test code = Creatinine Level) BUN/Creat Ratio 10 N (test code = BUN/Creat Ratio) Glucose Level (test 135 mg/dL 70-115 H code = Glucose Level) Calcium Level (test 9.4 mg/dL 8.3-10.5 code = Calcium Level) Alk Phos (test code 95 U/L 35-104 = Alk Phos) Bilirubin Total 0.2 mg/dL 0.1-0.9 (test code = Bilirubin Total) Albumin Level (test 5.0 g/dL 3.5-5.2 code = Albumin Level) Protein Total (test 7.7 g/dL 6.4-8.3 code = Protein Total) ALT (test code = 24 U/L 1-33 ALT) AST (test code = 24 U/L 1-32 AST) Globulin (test code 2.7 g/dL 2.9-3.1 L = Globulin) A/G Ratio (test code 1.9 ratio N = A/G Ratio) eGFR AA (test code = >60 N eGFR (e stimated eGFR AA) mL/min/1.73 m2 Glomerular Filtration Rate ) is an estimated va lue, calculated from the patient's serum creatinine usin g the MDRD equation. It is NOT the patient 's actual GFR. The eGFR provides a more clinically usef ul measure of kidn ey disease than se rum creatinine alone.This calculation nisa es sex and race in to account, if the information is provided. If th e race is not provided, and t he patient is -Yanira n, multiply by 1.2 12. If sex is not provided, and t he patient is fema le, multiply by 0.7 42. Results for pat ients <18 years of ag e have not been validated by [facility] MDRD study and should be interpreted wit h caution. eGFR R esult Interpretation: eGFR > or = 60 is in the Normal RangeeGF R < 60 may mean kid shannan diseaseeGFR < 1 5 may mean kidney failure Rang es recommended by the National Kidney Foundation, http://nkdep.ni h.gov eGFR Non-AA (test >60.00 N eGFR (shae mated code = eGFR Non-AA) mL/min/1.73 m2 Glomer ular Filtration Rate ) is an estimated va lue, calculated from the patient's serum creatinine usin g the MDRD equation. It is NOT the patient 's actual GFR. The eGFR provides a more clinically usef ul measure of kidn ey disease than se rum creatinine alone.This calculation nisa es sex and race in to account, if the information is provided. If th e race is not provided, and t he patient is -Yanira n, multiply by 1.2 12. If sex is not provided, and t he patient is fema le, multiply by 0.7 42. Results for pat ients <18 years of ag e have not been validated by [facility] MDRD study and should be interpreted wit h caution. eGFR R esult Interpretation: eGFR > or = 60 is in the Normal RangeeGF R < 60 may mean kid shannan diseaseeGFR < 1 5 may mean kidney failure Rang es recommended by the National Kidney Foundation, http://nkdep.ni h.gov Urinalysis [id number] 15:11:20 Test Item Value Reference Range Interpretation Comments UA WBC (test code = UA WBC) 6-10 0-5 A UA RBC (test code = UA RBC) 0-5 0-5 UA Bacteria (test code = UA Moderate A Bacteria) UA Squam Epithelial (test code = UA TNTC A Squam Epithelial) UA Mucous (test code = UA Mucous) Few A Urinalysis with Microscopic if [id number] 14:42:58 Test Item Value Reference Range Interpretation Comments UA Color (test code = YELLO Yellow UA Color) UA Appear (test code = CLEAR Clear UA Appear) UA pH (test code = UA 6.5 pH) UA Spec Grav (test 1.014 1.001-1.035 code = UA Spec Grav) UA Glucose (test code NEG Negative = UA Glucose) UA Ketones (test code NEG Negative = UA Ketones) UA Blood (test code = 250 cells/mcL Negative A UA Blood) UA Protein (test code NEG Negative = UA Protein) UA Bili (test code = NEG Negative UA Bili) UA Urobilinogen (test 0.2 mg/dL N code = UA Urobilinogen) UA Nitrite (test code NEG Negative = UA Nitrite) UA Leuk Est (test code NEG Negative = UA Leuk Est) UA Micro Ind? (test Indicated Not Indicated A Result created by code = UA Micro Ind?) rule [id number] _IN D Complete Blood Count with [id number] 14:37:26 Test Item Value Reference Range Interpretation Comments WBC (test code = WBC) 9.2 x10 4.4-10.5 RBC (test code = RBC) 4.84 x10 3.75-5.20 Hgb (test code = Hgb) 10.8 g/dL 12.2-14.8 L Hct (test code = Hct) 35.3 % 36.5-44.4 L MCV (test code = MCV) 72.90 fL 80.00-100.00 L MCHC (test code = 30.60 g/dL 32.00-37.50 L MCHC) MCH (test code = MCH) 22.3 pg 27.0-32.5 L RDW CV (test code = 14.8 % 11.5-14.5 H RDW CV) Platelets (test code = 332.0 x10 140.0-440.0 Platelets) MPV (test code = MPV) 9.7 fL N Slide Review (test Auto Auto Result cr eated by code = Slide Review) GL_SJM_ SLIDE_REV_AUTO GL_SJM_XN_RFLX nRBC (test code = 0 N nRBC) NRBC Abs (test code = 0.00 x10 N NRBC Abs) Pos Morph XN (test A N code = Pos Morph XN) IPF (test code = IPF) 0 % N Automated [id number] 14:37:26 Test Item Value Reference Range Interpretation Comments Neutro Auto (test code = Neutro 65.8 % 36.0-70.0 Auto) Lymph Auto (test code = Lymph Auto) 25.5 % 12.0-44.0 Fisher Auto (test code = Fisher Auto) 7.3 % 0.0-11.0 Eos, Auto (test code = Eos, Auto) 0.7 % 0.0-7.0 Basophil Auto (test code = Basophil 0.5 % 0.0-2.0 Auto) Neutro Absolute (test code = Neutro 6.0 x10 1.6-7.4 Absolute) Lymph Absolute (test code = Lymph 2.34 x10 .50-4.60 Absolute) Fisher Absolute (test code = Fisher .67 x10 .00-1.20 Absolute) Eos Absolute (test code = Eos 0.06 x10 0.00-0.74 Absolute) Baso Absolute (test code = Baso 0.05 x10 0.00-0.21 Absolute) IG [id number] 14:37:26 Test Item Value Reference Range Interpretation Comments IG (test code = IG) 0.2 % 0.0-5.0 IG Abs (test code = IG Abs) 0 x10 N HCG Qualitative [id number] 14:34:08 Test Item Value Reference Range Interpretation Comments hCG Ur (test code = Negative If the r esult is hCG Ur) "Negative" in p atients suspected to be , recom mend retest with a s ample obtained 48 to 72 hours later, or by ordering a quantitative as say. If the result i s "Borderline" te sting should be repea vandana in 48 to 72 hours. Lot # (test code = [id number] N Lot #) Expiration Dt (test 2020-03-14 N code = Expiration Dt) Neg Control (test Negative code = Neg Control) Pos Control (test Positive code = Pos Control) Internal QC (test Acceptable code = Internal QC) DRUGS OF ABUSE SCREEN [id number] 17:11:00 Test Item Value Reference Range Interpretation Comments URN COCAINE (test code NEGATIVE NEGATIVE Cocai ne cut-off = COCAURN) concentration: 300 ng/mL URN CANNABINOIDS (test NEGATIVE NEGATIVE Canna binoids cut-off code = CANNABURN) concentrat ion: 50 ng/mL URN AMPHETAMINE (test NEGATIVE NEGATIVE Amphet amine cut-off code = AMPHETURN) concentrat ion: 1000 ng/mL URN BARBITURATE (test NEGATIVE NEGATIVE Barbit urate cut-off code = BARBITURN) concentrat ion: 200 ng/mL URN BENZODIAZEPINE NEGATIVE NEGATIVE Benzodiaz epine cut-off (test code = BENZOURN) miguel ntration: 200 ng/mL URN OPIATES (test code NEGATIVE NEGATIVE Opiat es cut-off = OPIATURN) concentration: 200 ng/mL URN PHENCYCLIDINE (PCP) NEGATIVE NEGATIVE Phen cyclidine(PCP) (test code = PHENCURN) cut-o ff concentration: 25 ng/ml URN METHADONE (test NEGATIVE NEGATIVE Methadon e cut-off code = METHAURN) concentrati on: 300 ng/mL URINALYSIS [id number] 17:08:00 Test Item Value Reference Range Interpretation Comments UA COLOR (test code = YELLOW COLU) UA APPEARANCE (test code SLHZY = APPU) UA GLUCOSE DIPSTICK (test NORMAL mg/dl NORMAL code = DGLUU) UA BILIRUBIN DIPSTICK NEGATIVE mg/dL NEGATIVE (test code = BILU) UA KETONE DIPSTICK (test NEGATIVE mg/dl NEGATIVE code = KETU) UA SPECIFIC GRAVITY (test 1.020 1.000-1.030 code = SGU) UA BLOOD DIPSTICK (test 250 Gilbert/micL NEGATIVE A code = RIVER) Gilbert/micL UA PH DIPSTICK (test code 6.0 5.0-9.0 = MARY) UA PROTEIN DIPSTICK (test NEGATIVE mg/dl NEGATIVE code = PROU) UA UROBILINIOGEN DIPSTICK NORMAL mg/dl NORMAL (test code = URO) UA NITRITE DIPSTICK (test NEGATIVE NEGATIVE code = KIET) UA LEUKOCYTE ESTERASE NEGATIVE Bryan/micL NEGATIVE DIPSTICK (test code = LEUU) UA WBC (test code = WBCU) 0-3 WBC/HPF NONE UA RBC (test code = RBCU) 10-25 RBC/HPF 0-3 A UA EPITHELIAL CELLS (test 5-10 EPI/HPF 0-3 A code = EPIU) UA BACTERIA (test code = MOD NONE BACU) URINALYSIS [id number] 17:00:00 Test Item Value Reference Range Interpretation Comments UA COLOR (test code = COLU) UA APPEARANCE (test code = APPU) UA GLUCOSE DIPSTICK (test NORMAL mg/dl NORMAL code = DGLUU) UA BILIRUBIN DIPSTICK NEGATIVE mg/dL NEGATIVE (test code = BILU) UA KETONE DIPSTICK (test NEGATIVE mg/dl NEGATIVE code = KETU) UA SPECIFIC GRAVITY (test 1.020 1.000-1.030 code = SGU) UA BLOOD DIPSTICK (test 250 Gilbert/micL NEGATIVE A code = RIVER) Gilbert/micL UA PH DIPSTICK (test code 6.0 5.0-9.0 = MARY) UA PROTEIN DIPSTICK (test NEGATIVE mg/dl NEGATIVE code = PROU) UA UROBILINIOGEN DIPSTICK NORMAL mg/dl NORMAL (test code = URO) UA NITRITE DIPSTICK (test NEGATIVE NEGATIVE code = KIET) UA LEUKOCYTE ESTERASE NEGATIVE Bryan/micL NEGATIVE DIPSTICK (test code = LEUU) UA WBC (test code = WBCU) WBC/HPF NONE UA RBC (test code = RBCU) RBC/HPF 0-3 UA EPITHELIAL CELLS (test EPI/HPF 0-3 code = EPIU) UA BACTERIA (test code = NONE BACU) HCG SERUM [id number] 16:52:00 Test Item Value Reference Range Interpretation Comments HCG SERUM QUAL (test code = HCGQL) NEGATIVE NEGATIVE - CT HEAD/BRAIN W/O [id number] 16:51:00 FAX: Theresa Fields MD [place]: EM St: REG Name: SAHRA NETTLES [facility] : 1990 Age/S: 28/F [address] [facility] Unit: [id number] Loc: E.[place], [place] Phys: [place] [id number] Acct: [id number] Dis Date: Status: REG ER PHONE #: [phone] Exam Date: 02/23/2019 1642 FAX #: [phone] Reason: SEIZURE EXAMS: CPT CODE: [id number] CT HEAD/BRAIN W/O CONT [id number] Dictation location: U19. CT HEAD WITHOUT CONTRAST. [...] signed by: Mark Morrison M.D. CC: Theresa iFelds MD Technologist: SAHRA DICKSON Trnscrd Dt/Tm: 02/23/2019 (0081) [email or web address] Orig Print D/T: S: 02/23/2019 (3544 PAGE 1 Signed ReportBASIC METABOLIC [id number] 16:31:00 Test Item Value Reference Range Interpretation Comments SODIUM (test code = NA) 138 mmol/l 134.0-147.0 N POTASSIUM (test code = K) 3.8 mmol/L 3.6-5.2 N CHLORIDE (test code = CL) 102 mmol/l 98.0-107.0 N CARBON DIOXIDE (test code = CO2) 26.7 mmol/l 21.0-33.0 N ANION GAP (test code = GAP) 13.1 0-20 N GLUCOSE (test code = GLU) 110 mg/dl 70.0-110.0 N BLOOD UREA NITROGEN (test code = 8 mg/dl 7.0-18.0 N BUN) CREATININE (test code = CREAT) 0.66 mg/dL 0.60-1.30 N GFR NON BLACK (test code = 112 mL/min 110-120 N GFRNONBLACK) GFR BLACK (test code = GFRBLACK) 136 mL/min 133-145 N CALCIUM (test code = CA) 8.8 mg/dl 8.0-10.5 N BASIC METABOLIC [id number] 16:26:00 Test Item Value Reference Range Interpretation Comments SODIUM (test code = NA) 138 mmol/l 134.0-147.0 N POTASSIUM (test code = K) 3.8 mmol/L 3.6-5.2 N CHLORIDE (test code = CL) 102 mmol/l 98.0-107.0 N CARBON DIOXIDE (test code = CO2) 26.7 mmol/l 21.0-33.0 N ANION GAP (test code = GAP) 13.1 0-20 N GLUCOSE (test code = GLU) mg/dl 70.0-110.0 BLOOD UREA NITROGEN (test code = mg/dl 7.0-18.0 BUN) CREATININE (test code = CREAT) mg/dL 0.60-1.30 GFR NON BLACK (test code = mL/min 110-120 GFRNONBLACK) GFR BLACK (test code = GFRBLACK) mL/min 133-145 CALCIUM (test code = CA) mg/dl 8.0-10.5 CBC W/AUTO [id number] 16:15:00 Test Item Value Reference Range Interpretation Comments WHITE BLOOD CELL (test code = 8.0 K/mm3 4.5-11.0 N WBC) RED BLOOD CELL (test code = 4.57 M/mm3 3.80-5.20 N RBC) HEMOGLOBIN (test code = HGB) 10.1 gm/dL 12.0-16.0 L HEMATOCRIT (test code = HCT) 33.6 % 36.0-48.0 L MEAN CELL VOLUME (test code = 73.5 UM3 82.0-99.0 L MCV) MEAN CELL HGB (test code = MCH) 22.1 UUG 25.5-32.5 L MEAN CELL HGB CONCETRATION 30.1 gm/dL 29.0-35.5 N (test code = MCHC) RED CELL DISTRIBUTION WIDTH 15.0 % 11.5-15.0 N (test code = RDW) RED CELL DISTRIBUTION WIDTH SD 39.3 fL 34.8-50.2 N (test code = RDW-SD) PLATELET COUNT (test code = 319 K/mm3 150-400 N PLT) MEAN PLATELET VOLUME (test code 10.5 fl 7.4-10.4 H = MPV) NEUTROPHIL % (test code = NT%) 59.5 % 49.0-76.0 N IMMATURE GRANULOCYTE % (test 0.2 % 0.0-0.4 N code = IG%) LYMPHOCYTE % (test code = LY%) 26.9 % 23.0-38.0 N MONOCYTE % (test code = MO%) 10.4 % 1.0-10.0 H EOSINOPHIL % (test code = EO%) 2.1 % 1.0-5.0 N BASOPHIL % (test code = BA%) 0.9 % 0.0-1.0 N NEUTROPHIL # (test code = NT#) 4.8 K/mm3 2.4-6.3 N IMMATURE GRANULOCYTE # (test 0.02 x10 3/uL 0.00-0.07 N code = IG#) LYMPHOCYTE # (test code = LY#) 2.2 K/mm3 1.2-4.0 N MONOCYTE # (test code = MO#) 0.8 K/mm3 0.0-0.6 H EOSINOPHIL # (test code = EO#) 0.2 K/MM3 0.0-0.7 N BASOPHIL # (test code = BA#) 0.1 K/mm3 0.0-0.2 N LIPID PROFILE (CORONARY RISK)2018-12-08 14:27:00 Test Item Value Reference Range Interpretation Comments TRIGLYCERIDES (test 39 MG/DL 30-200 N code = TRIG) CHOLESTEROL (test code 139 MG/DL 122-200 N = CHOL) CHOLESTEROL/HDL RATIO 2.2 1.5-4.5 N 1. I nitial (test code = CHOLHDL) classi fication based on total choles terol: <200 mg/dl Desirable chol esterol 200-239 m g/dl Borderline hi gh risk cholesterol >240 mg/dl H igh risk cholestero l2. Initial classif ication based on LDL cholesterol: <130 mg/dl Desirable LDL cholesterol 130-159 mg/dl Borderline high risk LDL >159 mg/dl High risk LDL cholesterol3. HDL < 35 mg/dl repres ent increased CHD r isk; HDL > 60 mg/dl represent decre ased CHD risk.4. C hol/HDL > 5.0 represent increased CHD risk in men; Chol/H DL > 4.5 represent increased CHD risk in women. HDL CHOLESTEROL (test 63 MG/DL 40-60 H code = HDL) LIPOPROTEIN LDL (test 68 MG/DL 62-130 N code = LDL) LIPOPROTEIN VLDL (test 8 MG/DL 3-60 N code = VLDL) RAPID PLASMA [id number] 10:31:00 Test Item Value Reference Range Interpretation Comments RAPID PLASMA REAGIN (test code = Nonreactive Nonreactive RPR) GLYCOSYLATED HEMOGLOBIN (HA1C)2018-12-07 10:05:00 Test Item Value Reference Range Interpretation Comments GLYCOSYLATED HEMOGLOBIN (HA1C) 5.8 % TOT HB 4.5-6.2 N (test code = GLYHGB) [id number] 15:31:00 Test Item Value Reference Range Interpretation Comments ACETAMINOPHEN (test < 1 MCG/ML 10-30 L Acetamin ophen is code = ACET) possibly toxic at levels of: 1. m ore than 150 MCG/ML 4 hours post kaylin stion. 2. more than 5 0 MCG/ML 12 hours post ingestion. [id number] 15:31:00 Test Item Value Reference Range Interpretation Comments SALICYLATE (test code = < 3 MG/DL 0-20 N Refe rence Range: BOSSMAN) Analgesic...... ...... ...... < 10 mg /dl Therapeutic.... ...... ...... 15-20 mg /dl Mild Toxicity....... ...... . > 30 mg/dl Severe Toxicity....... ..... > 60 mg/dl UA RFLX [id number] 14:18:00 Test Item Value Reference Range Interpretation Comments UA COLOR (test code = COLU) YELLOW YELLOW UA APPEARANCE (test code = CLEAR CLEAR APPU) UA GLUCOSE DIPSTICK (test NEGATIVE mg/dL NEGATIVE code = DGLUU) UA BILIRUBIN DIPSTICK (test NEGATIVE NEGATIVE code = BILU) UA KETONE DIPSTICK (test code NEGATIVE mg/dL NEGATIVE = KETU) UA SPECIFIC GRAVITY (test 1.010 1.001-1.035 N code = SGU) UA BLOOD DIPSTICK (test code 4+ NEGATIVE A = RIVER) UA PH DIPSTICK (test code = 8.0 5.5-7.0 H MARY) UA PROTEIN DIPSTICK (test NEGATIVE mg/dL NEGATIVE code = PROU) UA UROBILINOGEN DIPSTICK NORMAL mg/dL NORMAL (test code = URO) UA NITRITE DIPSTICK (test NEGATIVE NEGATIVE code = KIET) UA LEUKOCYTE ESTERASE NEGATIVE NEGATIVE DIPSTICK (test code = LEUU) UA COMMENT (test code = COMU) VOLUME 10-12 ML URINE SPECIMEN DESCRIPTION Clean Catch (test code = UASPEC) UA [id number] 14:18:00 Test Item Value Reference Range Interpretation Comments UA WBC (test code = WBCU) < 10 #/hpf <10 UA RBC (test code = RBCU) 0-2 #/hpf NONE SEEN A UA BACTERIA (test code = BACU) RARE #/hpf NONE SEEN UA SQUAMOUS CELLS (test code = 0 - 20 #/lpf <100 SQU) UA MUCUS (test code = MUCU) 1+ #/lpf NONE SEEN BASIC METABOLIC [id number] 14:16:00 Test Item Value Reference Range Interpretation Comments SODIUM (test code = 140 MMOL/L 133-145 N NA) POTASSIUM (test code = 4.3 MMOL/L 3.6-5.2 N K) CHLORIDE (test code = 104 MMOL/L 100-108 N CL) CARBON DIOXIDE (test 22 MMOL/L 22-32 N code = CO2) GLUCOSE (test code = 91 MG/DL 65-99 N Results of this assay GLU) method may be f alsely depressed orele vated if patient is t aking sulfasalazine. BLOOD UREA NITROGEN 10 MG/DL 6-20 N (test code = BUN) GLOMERULAR FILTRATION 131 71-165 N Report ing units: RATE (test code = GFR) mL/mi n/1.73m\\S\\2 (Modified MDRD Formula) CREATININE (test code 0.55 MG/DL 0.60-1.00 L = CREAT) CALCIUM (test code = 9.4 MG/DL 8.7-10.5 N CA) HEPATIC FUNCTION [id number] 14:16:00 Test Item Value Reference Range Interpretation Comments TOTAL PROTEIN (test 7.6 G/DL 6.4-8.2 N code = PROT) ALBUMIN (test code = 4.2 G/DL 3.4-5.0 N ALB) GLOBULIN (test code = 3.4 G/DL 1.5-3.8 N GLOB) ALBUMIN/GLOBULIN RATIO 1.2 1.1-2.2 N (test code = A/G) BILIRUBIN TOTAL (test 0.5 MG/DL 0.0-1.0 N code = BILT) BILIRUBIN DIRECT (test 0.2 MG/DL 0.0-0.3 N code = BILD) BILIRUBIN INDIRECT 0.3 MG/DL 0.0-0.7 N (test code = BILIND) SGOT/AST (test code = 25 Units/L 15-37 N Result s of this assay AST) method may be f alsely depressed orele vated if patient is t aking sulfasalazine. SGPT/ALT (test code = 43 Units/L 30-65 N Result s of this assay ALT) method may be f alsely depressed orele vated if patient is t aking sulfasalazine. ALKALINE PHOSPHATASE 74 Units/L 50-136 N TOTAL (test code = ALKP) [id number] 14:16:00 Test Item Value Reference Range Interpretation Comments CK (test code = CKT) 87 Units/L 26-192 N [id number] 14:16:00 Test Item Value Reference Range Interpretation Comments ALCOHOL (test code = < 3 MG/DL 0-10 N 0 - 10: Should be ALC) interpreted as NEGATIVE. 11 - 50: None to mild euphoria. 51 - 100: Mild influence on vision and dark adapta tion. > 80: Legal intoxication; D epression of OIL FIELD PUMPER; Increasing degr ee of poisoning. > 400: Fatalities repo rted. Results are for medical purposes only a nd not forlegal or emp loyment evaluative purp oses. BASIC METABOLIC [id number] 14:09:00 Test Item Value Reference Range Interpretation Comments SODIUM (test code = 140 MMOL/L 133-145 N NA) POTASSIUM (test code = 4.3 MMOL/L 3.6-5.2 N K) CHLORIDE (test code = 104 MMOL/L 100-108 N CL) CARBON DIOXIDE (test 22 MMOL/L 22-32 N code = CO2) GLUCOSE (test code = 91 MG/DL 65-99 N Results of this assay GLU) method may be f alsely depressed orele vated if patient is t aking sulfasalazine. BLOOD UREA NITROGEN 10 MG/DL 6-20 N (test code = BUN) GLOMERULAR FILTRATION 131 71-165 N Report ing units: RATE (test code = GFR) mL/mi n/1.73m\\S\\2 (Modified MDRD Formula) CREATININE (test code 0.55 MG/DL 0.60-1.00 L = CREAT) CALCIUM (test code = 9.4 MG/DL 8.7-10.5 N CA) HEPATIC FUNCTION [id number] 14:09:00 Test Item Value Reference Range Interpretation Comments TOTAL PROTEIN (test code = PROT) G/DL 6.4-8.2 ALBUMIN (test code = ALB) G/DL 3.4-5.0 GLOBULIN (test code = GLOB) G/DL 1.5-3.8 ALBUMIN/GLOBULIN RATIO (test code = 1.1-2.2 A/G) BILIRUBIN TOTAL (test code = BILT) MG/DL 0.0-1.0 BILIRUBIN DIRECT (test code = BILD) MG/DL 0.0-0.3 SGOT/AST (test code = AST) Units/L 15-37 SGPT/ALT (test code = ALT) Units/L 30-65 ALKALINE PHOSPHATASE TOTAL (test Units/L 50-136 code = ALKP) [id number] 14:09:00 Test Item Value Reference Range Interpretation Comments CK (test code = CKT) Units/L 26-192 [id number] 14:09:00 Test Item Value Reference Range Interpretation Comments ALCOHOL (test code = ALC) MG/DL 0-10 LACTIC ACID [id number] 13:50:00 Test Item Value Reference Range Interpretation Comments LACTIC ACID POC 0.97 MMOL/L 0.90-1.70 N Performed by certified (test code = LACTP) shredding machine operator at [facility] [id number] 13:48:00 Test Item Value Reference Range Interpretation Comments GLUBED (test code = 88 MG/DL 65-99 N Performe d by certified GLUBED) shredding machine operator at [facility] DRUG OF ABUSE SCREEN [id number] 13:43:00 Test Item Value Reference Interpretation Comments Range UR COCAINE (test NEGATIVE NEGATIVE code = COCAU) UR MDMA (test code = NEGATIVE NEGATIVE MDMAQLU) UR CANNABINOIDS NEGATIVE NEGATIVE (test code = CANU) UR AMPHETAMINE (test NEGATIVE NEGATIVE code = AMPHU) UR BARBITURATE QUAL NEGATIVE NEGATIVE (test code = BARBQLU) UR BENZODIAZEPINE NEGATIVE NEGATIVE (test code = BENZU) UR OPIATES QUAL NEGATIVE NEGATIVE (test code = OPIAQLU) UR PHENCYCLIDINE NEGATIVE NEGATIVE Urine Drug Abuse Screen (PCP) (test code = provides preliminary PHENCU) results thatmay be confirmed by [place] rader methods (i.e., GC/MS) at [facility]. Results of scre en may not be usedin crimi nal justice, job performance or professionalcre dential review, or infa nt custody issues. Negativ e [place] Level ng/ml ------- ----- Cocaine 300 Methamp hetamine (Ecstacy) 500 Cannabinoids (THC) 50 Amphetamine 1000 Barbiturate s 200 Benzodia zepines 200 Opiat es 300 Ph encyclidine (PCP) 25 UR HCG [id number] 13:39:00 Test Item Value Reference Range Interpretation Comments UR HCG QUAL (test NEGATIVE NEGATIVE False nega tives may occur code = HCGQLU) when levels o f hCGare below 20 mIU/ml. When is still suspec vandana, a new specimenshould be obtained after 48 hours and re-tested.If wa iting 48 hours is not me dically advisable,the t est result should be confi rmed using aquantitative h CG assay. UA RFLX [id number] 13:38:00 Test Item Value Reference Range Interpretation Comments UA COLOR (test code = COLU) YELLOW YELLOW UA APPEARANCE (test code = CLEAR CLEAR APPU) UA GLUCOSE DIPSTICK (test NEGATIVE mg/dL NEGATIVE code = DGLUU) UA BILIRUBIN DIPSTICK (test NEGATIVE NEGATIVE code = BILU) UA KETONE DIPSTICK (test code NEGATIVE mg/dL NEGATIVE = KETU) UA SPECIFIC GRAVITY (test 1.010 1.001-1.035 N code = SGU) UA BLOOD DIPSTICK (test code 4+ NEGATIVE A = RIVER) UA PH DIPSTICK (test code = 8.0 5.5-7.0 H MARY) UA PROTEIN DIPSTICK (test NEGATIVE mg/dL NEGATIVE code = PROU) UA UROBILINOGEN DIPSTICK NORMAL mg/dL NORMAL (test code = URO) UA NITRITE DIPSTICK (test NEGATIVE NEGATIVE code = KIET) UA LEUKOCYTE ESTERASE NEGATIVE NEGATIVE DIPSTICK (test code = LEUU) UA COMMENT (test code = COMU) VOLUME 10-12 ML URINE SPECIMEN DESCRIPTION Clean Catch (test code = UASPEC) UA [id number] 13:38:00 Test Item Value Reference Range Interpretation Comments UA WBC (test code = WBCU) #/hpf <10 UA RBC (test code = RBCU) #/hpf NONE SEEN UA SQUAMOUS CELLS (test code = SQU) #/lpf <100 UA RFLX [id number] 13:38:00 Test Item Value Reference Range Interpretation Comments UA COLOR (test code = COLU) YELLOW YELLOW UA APPEARANCE (test code = CLEAR CLEAR APPU) UA GLUCOSE DIPSTICK (test NEGATIVE mg/dL NEGATIVE code = DGLUU) UA BILIRUBIN DIPSTICK (test NEGATIVE NEGATIVE code = BILU) UA KETONE DIPSTICK (test code NEGATIVE mg/dL NEGATIVE = KETU) UA SPECIFIC GRAVITY (test 1.010 1.001-1.035 N code = SGU) UA BLOOD DIPSTICK (test code 4+ NEGATIVE A = RIVER) UA PH DIPSTICK (test code = 8.0 5.5-7.0 H MARY) UA PROTEIN DIPSTICK (test NEGATIVE mg/dL NEGATIVE code = PROU) UA UROBILINOGEN DIPSTICK NORMAL mg/dL NORMAL (test code = URO) UA NITRITE DIPSTICK (test NEGATIVE NEGATIVE code = KIET) UA LEUKOCYTE ESTERASE NEGATIVE NEGATIVE DIPSTICK (test code = LEUU) UA COMMENT (test code = COMU) VOLUME 10-12 ML URINE SPECIMEN DESCRIPTION Clean Catch (test code = UASPEC) UA [id number] 13:38:00 Test Item Value Reference Range Interpretation Comments UA WBC (test code = WBCU) #/hpf <10 UA RBC (test code = RBCU) #/hpf NONE SEEN UA SQUAMOUS CELLS (test code = SQU) #/lpf <100 CBC W/AUTO [id number] 13:26:00 Test Item Value Reference Range Interpretation Comments WHITE BLOOD CELL (test code = 10.42 x10 3/uL 4.80-10.80 N WBC) RED BLOOD CELL (test code = 4.71 x10 6/uL 4.2-5.4 N RBC) HEMOGLOBIN (test code = HGB) 11.3 G/DL 12.0-16.0 L HEMATOCRIT (test code = HCT) 35.7 % 37-47 L MEAN CELL VOLUME (test code = 75.8 FL 81-99 L MCV) MEAN CELL HGB (test code = 24.0 PG 27-31 L MCH) MEAN CELL HGB CONCENTRATION 31.7 G/DL 33-37 L (test code = MCHC) RED CELL DISTRIBUTION WIDTH 15.4 % 11.5-14.5 H (test code = RDW) PLATELET COUNT (test code = 258 x10 3/uL 150-450 N PLT) MEAN PLATELET VOLUME (test 10.9 FL 7.4-10.4 H code = MPV) NEUTROPHIL % (test code = NT%) 72.0 % 42-86 N LYMPHOCYTE % (test code = LY%) 17.9 % 24-44 L MONOCYTE % (test code = MO%) 8.4 % 0.0-4.0 H EOSINOPHIL % (test code = EO%) 1.2 % 0.0-2.7 N BASOPHIL % (test code = BA%) 0.5 % 0.0-0.5 N NEUTROPHIL # (test code = NT#) 7.51 x10 3/uL 1.8-7.7 N LYMPHOCYTE # (test code = LY#) 1.86 x10 3/uL 1.0-4.8 N MONOCYTE # (test code = MO#) 0.88 x10 3/uL 0.0-0.8 H EOSINOPHIL # (test code = EO#) 0.12 x10 3/uL 0.0-0.5 N BASOPHIL # (test code = BA#) 0.05 x10 3/uL 0.0-0.2 N [id number] 19:07:00 Test Item Value Reference Interpretation Comments Range LEVETIRACETAM 28.7 ug/mL 10.0-40.0 This test was developed and (test code = its performance LEVTAM) characteristics determined by [facility]. It has not been cleared orappro froylan by the Food and Drug Administration. Performed At: [facility] [id number] [facility] [place], [place] [id number] ra Larissa MENDOZA Ph:[phone] BASIC METABOLIC [id number] 04:58:00 Test Item Value Reference Range Interpretation Comments SODIUM (test code = 138 MMOL/L 133-145 N NA) POTASSIUM (test code = 3.7 MMOL/L 3.6-5.2 N K) CHLORIDE (test code = 104 MMOL/L 100-108 N CL) CARBON DIOXIDE (test 25 MMOL/L 22-32 N code = CO2) GLUCOSE (test code = 90 MG/DL 65-99 N Results of this assay GLU) method may be f alsely depressed orele vated if patient is t aking sulfasalazine. BLOOD UREA NITROGEN 8 MG/DL 6-20 N (test code = BUN) GLOMERULAR FILTRATION 137 71-165 N Report ing units: RATE (test code = GFR) mL/mi n/1.73m\\S\\2 (Modified MDRD Formula) CREATININE (test code 0.53 MG/DL 0.60-1.00 L = CREAT) CALCIUM (test code = 8.9 MG/DL 8.7-10.5 N CA) [id number] 04:58:00 Test Item Value Reference Range Interpretation Comments MAGNESIUM (test code = MAG) 1.9 MG/DL 1.8-2.4 N CBC W/AUTO [id number] 04:08:00 Test Item Value Reference Range Interpretation Comments WHITE BLOOD CELL (test code = 8.24 x10 3/uL 4.80-10.80 N WBC) RED BLOOD CELL (test code = 4.57 x10 6/uL 4.2-5.4 N RBC) HEMOGLOBIN (test code = HGB) 11.2 G/DL 12.0-16.0 L HEMATOCRIT (test code = HCT) 35.3 % 37-47 L MEAN CELL VOLUME (test code = 77.2 FL 81-99 L MCV) MEAN CELL HGB (test code = MCH) 24.5 PG 27-31 L MEAN CELL HGB CONCENTRATION 31.7 G/DL 33-37 L (test code = MCHC) RED CELL DISTRIBUTION WIDTH 15.2 % 11.5-14.5 H (test code = RDW) PLATELET COUNT (test code = 282 x10 3/uL 150-450 N PLT) MEAN PLATELET VOLUME (test code 10.3 FL 7.4-10.4 N = MPV) NEUTROPHIL % (test code = NT%) 47.0 % 42-86 N IMMATURE GRANULOCYTE % (test 0.1 % 0.0-2.0 N code = IG%) LYMPHOCYTE % (test code = LY%) 40.5 % 24-44 N MONOCYTE % (test code = MO%) 9.0 % 0.0-4.0 H EOSINOPHIL % (test code = EO%) 2.9 % 0.0-2.7 H BASOPHIL % (test code = BA%) 0.5 % 0.0-0.5 N NUCLEATED RBC % (test code = 0.0 % 0.0-0.0 N NRBC%) NEUTROPHIL # (test code = NT#) 3.87 x10 3/uL 1.8-7.7 N IMMATURE GRANULOCYTE # (test 0.01 x10 3/uL 0.00-0.03 N code = IG#) LYMPHOCYTE # (test code = LY#) 3.34 x10 3/uL 1.0-4.8 N MONOCYTE # (test code = MO#) 0.74 x10 3/uL 0.0-0.8 N EOSINOPHIL # (test code = EO#) 0.24 x10 3/uL 0.0-0.5 N BASOPHIL # (test code = BA#) 0.04 x10 3/uL 0.0-0.2 N NUCLEATED RBC # (test code = 0.0 X10 3/uL 0.0-0.2 N NRBC#) - MRI BRAIN W/O [id number] 13:51:00 Patient Name: SAHRA NETTLES Unit No: [id number] EXAMS: CPT CODE: [id number] MRI BRAIN W/O CONTRAST 11240 Reason: sz INDICATION: Seizure COMPARISON: CT brain, [...] MD Technologist: Andre Self MRI Trscrpt Dt/ ([id number] Orig Print D/T: S: 09/17/2018 ([id number]) [facility] CntNAME: SAHRA NETTLES NOVEMBER [address] [facility] PHYS: [place] [address] : 1990 AGE: 27 SEX: F LOC: [phone] PHONE #: [phone] EXAM DATE: 09/17/2018 STATUS: ADM IN FAX #: RAD NO: DC Dt: PAGE 1 Signed [id number] 07:25:00 Test Item Value Reference Range Interpretation Comments PROLACTIN (test code = 24.6 ng/mL 4.8-23.3 H Perfo rmed At: HD PROLAC) [facility] [address] [id number] Sb Man MD Ph:[phone] UA RFLX MICROSCOPIC [id number] 19:02:00 Test Item Value Reference Range Interpretation Comments UA COLOR (test code = COLU) YELLOW YELLOW UA APPEARANCE (test code = CLEAR CLEAR APPU) UA GLUCOSE DIPSTICK (test NEGATIVE mg/dL NEGATIVE code = DGLUU) UA BILIRUBIN DIPSTICK (test NEGATIVE NEGATIVE code = BILU) UA KETONE DIPSTICK (test NEGATIVE mg/dL NEGATIVE code = KETU) UA SPECIFIC GRAVITY (test 1.015 1.001-1.035 N code = SGU) UA BLOOD DIPSTICK (test code NEGATIVE NEGATIVE = RIVER) UA PH DIPSTICK (test code = 6.0 5.5-7.0 N MARY) UA PROTEIN DIPSTICK (test NEGATIVE mg/dL NEGATIVE code = PROU) UA UROBILINOGEN DIPSTICK NORMAL mg/dL NORMAL (test code = URO) UA NITRITE DIPSTICK (test NEGATIVE NEGATIVE code = KIET) UA LEUKOCYTE ESTERASE NEGATIVE NEGATIVE DIPSTICK (test code = LEUU) UA COMMENT (test code = VOLUME 10-12 ML COMU) URINE SPECIMEN DESCRIPTION Clean Catch (test code = UASPEC) UA WBC (test code = WBCU) < 10 #/hpf <10 UA SQUAMOUS CELLS (test code 0 - 20 #/lpf <100 = SQU) UA CULTURE NEEDED? (test Criteria not met code = UACULT) URINE SOURCE: Clean CatchUA RFLX MICROSCOPIC [id number] 18:56:00 Test Item Value Reference Range Interpretation Comments UA COLOR (test code = COLU) YELLOW YELLOW UA APPEARANCE (test code = CLEAR CLEAR APPU) UA GLUCOSE DIPSTICK (test NEGATIVE mg/dL NEGATIVE code = DGLUU) UA BILIRUBIN DIPSTICK (test NEGATIVE NEGATIVE code = BILU) UA KETONE DIPSTICK (test code NEGATIVE mg/dL NEGATIVE = KETU) UA SPECIFIC GRAVITY (test 1.015 1.001-1.035 N code = SGU) UA BLOOD DIPSTICK (test code NEGATIVE NEGATIVE = RIVER) UA PH DIPSTICK (test code = 6.0 5.5-7.0 N MARY) UA PROTEIN DIPSTICK (test NEGATIVE mg/dL NEGATIVE code = PROU) UA UROBILINOGEN DIPSTICK NORMAL mg/dL NORMAL (test code = URO) UA NITRITE DIPSTICK (test NEGATIVE NEGATIVE code = KIET) UA LEUKOCYTE ESTERASE NEGATIVE NEGATIVE DIPSTICK (test code = LEUU) UA COMMENT (test code = COMU) VOLUME 10-12 ML URINE SPECIMEN DESCRIPTION Clean Catch (test code = UASPEC) UA WBC (test code = WBCU) #/hpf <10 UA SQUAMOUS CELLS (test code #/lpf <100 = SQU) UA CULTURE NEEDED? (test code = UACULT) URINE SOURCE: Clean [id number] 15:56:00 Test Item Value Reference Range Interpretation Comments CK (test code = CKT) 34 Units/L 26-192 N BASIC METABOLIC [id number] 12:57:00 Test Item Value Reference Range Interpretation Comments SODIUM (test code = 136 MMOL/L 133-145 N NA) POTASSIUM (test code = 3.5 MMOL/L 3.6-5.2 L K) CHLORIDE (test code = 103 MMOL/L 100-108 N CL) CARBON DIOXIDE (test 26 MMOL/L 22-32 N code = CO2) GLUCOSE (test code = 115 MG/DL 65-99 H Results of this assay GLU) method may be f alsely depressed orele vated if patient is t aking sulfasalazine. BLOOD UREA NITROGEN 8 MG/DL 6-20 N (test code = BUN) GLOMERULAR FILTRATION 119 71-165 N Report ing units: RATE (test code = GFR) mL/mi n/1.73m\\S\\2 (Modified MDRD Formula) CREATININE (test code 0.60 MG/DL 0.60-1.00 N = CREAT) CALCIUM (test code = 8.6 MG/DL 8.7-10.5 L CA) [id number] 12:57:00 Test Item Value Reference Range Interpretation Comments CK (test code = CKT) 32 Units/L 26-192 N CBC W/AUTO [id number] 12:33:00 Test Item Value Reference Range Interpretation Comments WHITE BLOOD CELL (test code = 8.89 x10 3/uL 4.80-10.80 N WBC) RED BLOOD CELL (test code = 4.54 x10 6/uL 4.2-5.4 N RBC) HEMOGLOBIN (test code = HGB) 11.2 G/DL 12.0-16.0 L HEMATOCRIT (test code = HCT) 35.0 % 37-47 L MEAN CELL VOLUME (test code = 77.1 FL 81-99 L MCV) MEAN CELL HGB (test code = MCH) 24.7 PG 27-31 L MEAN CELL HGB CONCENTRATION 32.0 G/DL 33-37 L (test code = MCHC) RED CELL DISTRIBUTION WIDTH 14.6 % 11.5-14.5 H (test code = RDW) PLATELET COUNT (test code = 288 x10 3/uL 150-450 N PLT) MEAN PLATELET VOLUME (test code 9.5 FL 7.4-10.4 N = MPV) NEUTROPHIL % (test code = NT%) 61.7 % 42-86 N IMMATURE GRANULOCYTE % (test 0.2 % 0.0-2.0 N code = IG%) LYMPHOCYTE % (test code = LY%) 27.1 % 24-44 N MONOCYTE % (test code = MO%) 9.2 % 0.0-4.0 H EOSINOPHIL % (test code = EO%) 1.1 % 0.0-2.7 N BASOPHIL % (test code = BA%) 0.7 % 0.0-0.5 H NUCLEATED RBC % (test code = 0.0 % 0.0-0.0 N NRBC%) NEUTROPHIL # (test code = NT#) 5.48 x10 3/uL 1.8-7.7 N IMMATURE GRANULOCYTE # (test 0.02 x10 3/uL 0.00-0.03 N code = IG#) LYMPHOCYTE # (test code = LY#) 2.41 x10 3/uL 1.0-4.8 N MONOCYTE # (test code = MO#) 0.82 x10 3/uL 0.0-0.8 H EOSINOPHIL # (test code = EO#) 0.10 x10 3/uL 0.0-0.5 N BASOPHIL # (test code = BA#) 0.06 x10 3/uL 0.0-0.2 N NUCLEATED RBC # (test code = 0.0 X10 3/uL 0.0-0.2 N NRBC#) TOTAL IRON BINDING [id number] 05:50:00 Test Item Value Reference Range Interpretation Comments SERUM IRON (test code = IRON) 17 MCG/DL 50-170 L TOTAL IRON BINDING CAPACITY (test 363 MCG/DL 280-400 N code = TIBC) IRON SATURATION (test code = 5 % 15-50 L FESAT) [id number] 05:50:00 Test Item Value Reference Range Interpretation Comments FERRITIN (test code = LULI) 11 NG/ML 3-105 N HEPATIC FUNCTION [id number] 05:32:00 Test Item Value Reference Range Interpretation Comments TOTAL PROTEIN (test 7.7 G/DL 6.4-8.2 N code = PROT) ALBUMIN (test code = 4.0 G/DL 3.4-5.0 N ALB) GLOBULIN (test code = 3.7 G/DL 1.5-3.8 N GLOB) ALBUMIN/GLOBULIN RATIO 1.1 1.1-2.2 N (test code = A/G) BILIRUBIN TOTAL (test 0.3 MG/DL 0.0-1.0 N code = BILT) BILIRUBIN DIRECT (test 0.1 MG/DL 0.0-0.3 N code = BILD) BILIRUBIN INDIRECT 0.2 MG/DL 0.0-0.7 N (test code = BILIND) SGOT/AST (test code = 21 Units/L 15-37 N Result s of this AST) assay method ma y be falsely depress ed orelevated if patient is taki ng sulfasalazine. SGPT/ALT (test code = 21 Units/L 30-65 L Result s of this ALT) assay method ma y be falsely depress ed orelevated if patient is taki ng sulfasalazine. ALKALINE PHOSPHATASE 100 Units/L 50-136 N TOTAL (test code = ALKP) - CT HEAD/BRAIN W/O [id number] 20:19:00 Patient Name: SAHRA NETTLES Unit No: [id number] EXAMS: CPT CODE: [id number] CT HEAD/BRAIN W/O CONT [id number] Reason: seizure TECHNIQUE: Contiguous 5 mm images [...] Heath Technologist: Edel Cade CT Trscrpt Dt/ (2018)Tristan Orig Print D/T: S: 09/14/2018 (2021) CTDI: DLP: [facility] NAME: SAHRA NETTLES [address]ER[address] [address] [facility] PHYS: NGA. - Keanu Váz[place] [address] : 1990 AGE: 27 SEX: F LOC: DCHERYL PHONE#: [phone] EXAM DATE: 09/14/2018 STATUS: REG ER FAX #: RAD NO: DC Dt: PAGE 1 Signed Report- XR CHEST 1 [id number] 20:18:00 Patient Name: SAHRA NETTLES Unit No: [id number] EXAMS: CPT CODE: [id number] XR CHEST 1 V [id number] Reason: screen for pneumonia FINDINGS: Single view ofthe chest shows normal heart size and pulmonary vasculature. The lungs are clear bilaterally. There is no focal infiltrate, pleural effusion or pneumothorax. IMPRESSION: No a cute cardiopulmonary findings at 2018 Reported and signed by: Lashell Jimenez MD CC: Keanu Vázquez MD; Cristiane Heath Technologist: Edel Cade CT Trscrpt Dt/ (2017)t.[email or web address] Orig PrintD/T: S: 09/14/2018 (2020) [facility] NAME: SAHRA NETTLES [address] [facility] PHYS: NGA. Keanu Váz[place] [address] : 1990 AGE: 27 SEX: F LOC: D.NER PHONE #: [phone] EXAM DATE: STATUS: REG ER FAX #: RAD NO: DC Dt: PAGE 1 Signed ReportHCG SERUM [id number] 20:04:00 Test Item Value Reference Range Interpretation Comments HCG SERUM QUAL NEGATIVE NEGATIVE False negativ es may occur (test code = when levels of hCGare below HCGQL) 10 mIU/ml. When is still suspec vandana, a new specimenshould be obtained after 48 hours and re-tested.If wa iting 48 hours is not me dically advisable,the t est result should be confi rmed using aquantitative h CG assay. BASIC METABOLIC [id number] 19:51:00 Test Item Value Reference Range Interpretation Comments SODIUM (test code = 139 MMOL/L 133-145 N NA) POTASSIUM (test code = 3.9 MMOL/L 3.6-5.2 N K) CHLORIDE (test code = 101 MMOL/L 100-108 N CL) CARBON DIOXIDE (test 30 MMOL/L 22-32 N code = CO2) GLUCOSE (test code = 95 MG/DL 65-99 N Results of this assay GLU) method may be f alsely depressed orele vated if patient is t aking sulfasalazine. BLOOD UREA NITROGEN 9 MG/DL 6-20 N (test code = BUN) GLOMERULAR FILTRATION 96 71-165 N Report ing units: RATE (test code = GFR) mL/mi n/1.73m\\S\\2 (Modified MDRD Formula) CREATININE (test code 0.72 MG/DL 0.60-1.00 N = CREAT) CALCIUM (test code = 9.3 MG/DL 8.7-10.5 N CA) CBC W/AUTO [id number] 19:46:00 Test Item Value Reference Range Interpretation Comments WHITE BLOOD CELL (test code = 10.04 x10 3/uL 4.80-10.80 N WBC) RED BLOOD CELL (test code = 4.90 x10 6/uL 4.2-5.4 N RBC) HEMOGLOBIN (test code = HGB) 10.9 G/DL 12.0-16.0 L HEMATOCRIT (test code = HCT) 37.4 % 37-47 N MEAN CELL VOLUME (test code = 76.3 FL 81-99 L MCV) MEAN CELL HGB (test code = 22.2 PG 27-31 L MCH) MEAN CELL HGB CONCENTRATION 29.1 G/DL 33-37 L (test code = MCHC) RED CELL DISTRIBUTION WIDTH 15.0 % 11.5-14.5 H (test code = RDW) PLATELET COUNT (test code = 371 x10 3/uL 150-450 N PLT) MEAN PLATELET VOLUME (test 9.8 FL 7.4-10.4 N code = MPV) NEUTROPHIL % (test code = NT%) 65.2 % 42-86 N LYMPHOCYTE % (test code = LY%) 22.2 % 24-44 L MONOCYTE % (test code = MO%) 10.5 % 0.0-4.0 H EOSINOPHIL % (test code = EO%) 1.6 % 0.0-2.7 N BASOPHIL % (test code = BA%) 0.5 % 0.0-0.5 N NEUTROPHIL # (test code = NT#) 6.55 x10 3/uL 1.8-7.7 N LYMPHOCYTE # (test code = LY#) 2.23 x10 3/uL 1.0-4.8 N MONOCYTE # (test code = MO#) 1.05 x10 3/uL 0.0-0.8 H EOSINOPHIL # (test code = EO#) 0.16 x10 3/uL 0.0-0.5 N BASOPHIL # (test code = BA#) 0.05 x10 3/uL 0.0-0.2 N BLOOD [id number] 10:00:00 Test Item Value Reference Range Interpretation Comments CULTURE (BEAKER) (test No growth in 5 days code = 1095) HCG, QUANTITATIVE, [id number] 15:37:00 Test Item Value Reference Range Interpretation Comments GONADOTROPIN, CHORIONIC (HCG) 55910 mIU/mL 0-10 H QUANT (BEAKER) (test code = 649) Non- Females: <10 mIU/mL Females: Gestation Age Reference Range(mIU/mL) 0.2-1 Week 5-50 1-2 Weeks 50-500 2-3 Weeks 100-5,000 3-4Weeks 500-10,000 4-5 Weeks 1,000-50,000 5-6 Weeks 10,000-100,000 6-8 Weeks 15,000-200,000 2-3 Months 10,000-100,000COMPREHENSIVE METABOLIC [id number] 15:10:00 Test Item Value Reference Range Interpretation Comments TOTAL PROTEIN 7.0 gm/dL 6.0-8.3 (BEAKER) (test code = 770) ALBUMIN (BEAKER) 3.9 g/dL 3.5-5.0 (test code = 1145) ALKALINE PHOSPHATASE 50 U/L 40-150 (BEAKER) (test code = 346) BILIRUBIN TOTAL 0.5 mg/dL 0.2-1.2 (BEAKER) (test code = 377) SODIUM (BEAKER) (test 140 meq/L 136-145 code = 381) POTASSIUM (BEAKER) 3.4 meq/L 3.5-5.1 L (test code = 379) CHLORIDE (BEAKER) 107 meq/L 98-107 (test code = 382) CO2 (BEAKER) (test 21 meq/L 22-29 L code = 355) BLOOD UREA NITROGEN 6 mg/dL 7-21 L (BEAKER) (test code = 354) CREATININE (BEAKER) 0.54 mg/dL 0.57-1.25 L (test code = 358) GLUCOSE RANDOM 76 mg/dL 70-105 (BEAKER) (test code = 652) CALCIUM (BEAKER) 9.2 mg/dL 8.4-10.2 (test code = 697) AST (SGOT) (BEAKER) 57 U/L 5-34 H (test code = 353) ALT (SGPT) (BEAKER) 84 U/L 6-55 H (test code = 347) EGFR (BEAKER) (test 135 ESTIMATE D GFR IS code = 1092) mL/min/1.73 sq NOT ACCURA TE m CREATININE CLEARANCE IN PREDICTING GLOMERULAR FILTRATION RATE . ESTIMATED GFR I S NOT APPLICABLE FOR DIALYSIS PATIEN TS. CBC W/PLT COUNT & AUTO [id number] 14:53:00 Test Item Value Reference Range Interpretation Comments WHITE BLOOD CELL COUNT (BEAKER) 9.7 K/ L 3.5-10.5 (test code = 775) RED BLOOD CELL COUNT (BEAKER) 4.31 M/ L 3.93-5.22 (test code = 761) HEMOGLOBIN (BEAKER) (test code = 10.0 GM/DL 11.2-15.7 L 410) HEMATOCRIT (BEAKER) (test code = 31.9 % 34.1-44.9 L 411) MEAN CORPUSCULAR VOLUME (BEAKER) 74.0 fL 79.4-94.8 L (test code = 753) MEAN CORPUSCULAR HEMOGLOBIN 23.2 pg 25.6-32.2 L (BEAKER) (test code = 751) MEAN CORPUSCULAR HEMOGLOBIN CONC 31.3 GM/DL 32.2-35.5 L (BEAKER) (test code = 752) RED CELL DISTRIBUTION WIDTH 19.0 % 11.7-14.4 H (BEAKER) (test code = 412) PLATELET COUNT (BEAKER) (test 259 K/CU MM 150-450 code = 756) MEAN PLATELET VOLUME (BEAKER) 9.9 fL 9.4-12.3 (test code = 754) NUCLEATED RED BLOOD CELLS 0 /100 WBC 0-0 (BEAKER) (test code = 413) NEUTROPHILS RELATIVE PERCENT 70 % (BEAKER) (test code = 429) LYMPHOCYTES RELATIVE PERCENT 21 % (BEAKER) (test code = 430) MONOCYTES RELATIVE PERCENT 8 % (BEAKER) (test code = 431) EOSINOPHILS RELATIVE PERCENT 1 % (BEAKER) (test code = 432) BASOPHILS RELATIVE PERCENT 1 % (BEAKER) (test code = 437) NEUTROPHILS ABSOLUTE COUNT 6.75 K/ L 1.56-6.13 H (BEAKER) (test code = 670) LYMPHOCYTES ABSOLUTE COUNT 2.01 K/ L 1.18-3.74 (BEAKER) (test code = 414) MONOCYTES ABSOLUTE COUNT (BEAKER) 0.75 K/ L 0.24-0.36 H (test code = 415) EOSINOPHILS ABSOLUTE COUNT 0.07 K/ L 0.04-0.36 (BEAKER) (test code = 416) BASOPHILS ABSOLUTE COUNT (BEAKER) 0.08 K/ L 0.01-0.08 (test code = 417) IMMATURE GRANULOCYTES-RELATIVE 0 % 0-1 PERCENT (BEAKER) (test code = 2801) U/S, , FIRST [id number] 07:52:00Reason for exam:-> Reason for exam:->please include [...] 1 day. An embryonic pole is evident. Boling-rump length measures 0.63 cm, correlating with estimated [...] Garrido Verified Date/Time: 05/17/2017 07:52:37 Reading Location: [facility] [id number] Ortho Consult Reading Room PREGNANCY SCREEN, [id number] 05:28:00 Test Item Value Reference Range Interpretation Comments TEST URINE (BEAKER) (test Positive code = 583) MR, BRAIN, WITHOUT [id number] 18:54:00Reason for exam:->Stroke evaluationFINAL REPORT MRI brain [...] Parra Verified Date/Time: 05/15/2017 18:54:11 Reading Location: [facility] Radiology Reading Room EEG AWAKE AND [id number] 12:08:00Reason for exam:->? nonconvulsive statusDATE OF TEST: 05/15/2017DATE OF REPORT 05/15/2017 ACC: [id number] EE Start time: 1034 Stop time: 1054 ICD-10: R56.9CPT Code: 01171UFKWJDX: 26 y/o woman with epilepsy found down [...] recordings.Marika Smith M.D.Neurophysiology FellowSwathi Harper M.D.Neurophysiology Attending [id number] 04:27:00 Test Item Value Reference Range Interpretation Comments PROCALCITONIN (BEAKER) (test code 0.17 ng/mL <0.05 H = 3036) SEPSIS RISK (ng/mL)Low: 0.05-0.50Intermediate: 0.51-2.00High: >=[id number] 03:15:00 Test Item Value Reference Range Interpretation Comments PHOSPHORUS (BEAKER) (test code = 3.1 mg/dL 2.3-4.7 604) [id number] 03:15:00 Test Item Value Reference Range Interpretation Comments MAGNESIUM (BEAKER) (test code = 1.9 mg/dL 1.6-2.6 627) BASIC METABOLIC [id number] 03:15:00 Test Item Value Reference Range Interpretation Comments SODIUM (BEAKER) 139 meq/L 136-145 (test code = 381) POTASSIUM (BEAKER) 3.7 meq/L 3.5-5.1 (test code = 379) CHLORIDE (BEAKER) 110 meq/L 98-107 H (test code = 382) CO2 (BEAKER) (test 19 meq/L 22-29 L code = 355) BLOOD UREA NITROGEN 8 mg/dL 7-21 (BEAKER) (test code = 354) CREATININE (BEAKER) 0.57 mg/dL 0.57-1.25 (test code = 358) GLUCOSE RANDOM 92 mg/dL 70-105 (BEAKER) (test code = 652) CALCIUM (BEAKER) 9.2 mg/dL 8.4-10.2 (test code = 697) EGFR (BEAKER) (test 127 mL/min/1.73 ESTIM ATED GFR IS code = 1092) sq m NOT ACCURATE CREATININE CLEARANCE IN PREDICTING GLOMERULAR FILTRATION RATE . ESTIMATED GFR I S NOT APPLICABLE FOR DIALYSIS PATIEN TS. CREATINE KINASE (CK)2017-05-15 03:15:00 Test Item Value Reference Range Interpretation Comments CREATINE KINASE TOTAL (BEAKER) (test 200 U/L 29-200 code = 380) LACTIC ACID, VENOUS, WHOLE [id number] 03:09:00 Test Item Value Reference Range Interpretation Comments LACTATE BLOOD VENOUS (2) (BEAKER) 0.6 mmol/L 0.5-2.2 (test code = 2872) Effective 10/17/2015: Units/Reference Range ChangeNew: 0.5-2.2 mmol/L Previous: 5-20 mg/dLPROTHROMBIN TIME/[id number] 03:07:00 Test Item Value Reference Range Interpretation Comments PROTIME (BEAKER) (test code = 14.5 seconds 11.7-14.7 759) INR (BEAKER) (test code = 370) 1.1 <=5.9 RECOMMENDED COUMADIN/WARFARIN INR THERAPY RANGESSTANDARD DOSE: 2.0 - 3.0 Includes: PROPHYLAXIS forvenous thrombosis, systemic embolization; TREATMENT for venous thrombosis and/or pulmonary embolus.HIGH RISK: Target INR is 2.5-3.5 for patients with mechanical heart valves.CBC W/PLT COUNT & AUTO DIFFERENTIAL 2017-05-15 03:00:00 Test Item Value Reference Range Interpretation Comments WHITE BLOOD CELL COUNT (BEAKER) 21.6 K/ L 3.5-10.5 H (test code = 775) RED BLOOD CELL COUNT (BEAKER) 4.04 M/ L 3.93-5.22 (test code = 761) HEMOGLOBIN (BEAKER) (test code = 9.3 GM/DL 11.2-15.7 L 410) HEMATOCRIT (BEAKER) (test code = 30.1 % 34.1-44.9 L 411) MEAN CORPUSCULAR VOLUME (BEAKER) 74.5 fL 79.4-94.8 L (test code = 753) MEAN CORPUSCULAR HEMOGLOBIN 23.0 pg 25.6-32.2 L (BEAKER) (test code = 751) MEAN CORPUSCULAR HEMOGLOBIN CONC 30.9 GM/DL 32.2-35.5 L (BEAKER) (test code = 752) RED CELL DISTRIBUTION WIDTH 19.3 % 11.7-14.4 H (BEAKER) (test code = 412) PLATELET COUNT (BEAKER) (test 250 K/CU MM 150-450 code = 756) MEAN PLATELET VOLUME (BEAKER) 10.3 fL 9.4-12.3 (test code = 754) NUCLEATED RED BLOOD CELLS 0 /100 WBC 0-0 (BEAKER) (test code = 413) NEUTROPHILS RELATIVE PERCENT 83 % (BEAKER) (test code = 429) LYMPHOCYTES RELATIVE PERCENT 9 % (BEAKER) (test code = 430) MONOCYTES RELATIVE PERCENT 8 % (BEAKER) (test code = 431) EOSINOPHILS RELATIVE PERCENT 0 % (BEAKER) (test code = 432) BASOPHILS RELATIVE PERCENT 0 % (BEAKER) (test code = 437) NEUTROPHILS ABSOLUTE COUNT 17.85 K/ L 1.56-6.13 H (BEAKER) (test code = 670) LYMPHOCYTES ABSOLUTE COUNT 1.98 K/ L 1.18-3.74 (BEAKER) (test code = 414) MONOCYTES ABSOLUTE COUNT (BEAKER) 1.62 K/ L 0.24-0.36 H (test code = 415) EOSINOPHILS ABSOLUTE COUNT 0.01 K/ L 0.04-0.36 L (BEAKER) (test code = 416) BASOPHILS ABSOLUTE COUNT (BEAKER) 0.04 K/ L 0.01-0.08 (test code = 417) IMMATURE GRANULOCYTES-RELATIVE 1 % 0-1 PERCENT (BEAKER) (test code = 2801) RAD, CHEST, 1 VIEW, NON [id number] 01:06:00Reason for exam:->possible infectionShould this be performed [...] MDReport Verified Date/Time: 05/15/2017 01:06:06 Reading Location: [address] Reading Room
--- OUTSIDE RECORDS SUMMARY | 2019-11-09 23:09 | XMS REPORT | Summary of Care ---
:1990 Author Organization [facility] Address [address] [place] [address] Care Team Providers Name Role Phone Doctor Unassigned, [place] Insurance Hmo Unavailable [facility] Primary Care Provider Reason for Visit Auth/Cert Status Reason Specialty Diagnoses / Procedures Referred By Wanda armas Referred To Contact [facility] [place] [address] [place] [phone] Phone: Encounter Details Date Type Department Care Team Description 10/24/2019 Hospital Encounter [facility] AleksandarDaisy reyes [place] [address] [id number] [place] [address] [phone] Allergies No Known Allergiesdocumented as of this encounter (statuses as of 11/01/2019) Medications Medication Sig Dispensed Refills Start Date [...] by 0 Active ORAL) mouth. MEDROXYPROGESTERONE 10 mg TAKE 1 TABLET 90 tablet 0 10/11/2019 Active tabletIndications: BY MOUTH EVERY Abnormal vaginal bleeding, DAY Surveillance for control, oral contraceptives documented as of this encounter (statuses as of 11/01/2019) Active Problems Problem Noted Date Abnormal vaginal [...] as of this encounter (statuses as of 11/01/2019) Resolved Problems Problem Noted Date Resolved Date [...] as of this encounter (statuses as of 11/01/2019) Immunizations Name Administration Dates Next Due Influenza [...] Due Date Last Done Comments INFLUENZA VACCINE (Season 02/14/2020 06/22/2017 Ended) PAP SMEAR 07/13/2021 07/13/2018, 06/22/2017 DTaP,Tdap,and Td Vaccines (2 10/23/2027 10/22/2017 - Td) PNEUMOCOCCAL 0-64 YEARS Aged Out No longe r eligible based COMBINED SERIES on patient's age to complete this to [facility] documented as of this encounter Results Not on filedocumented in this encounter documented as of this encounter
[2019-11-09 23:59] LABS: Absolute Lymphocytes (CBC) 2.7 K/uL (0.7-4.9); Basophils % 0.7 % (0-1.3); Hematocrit 33.7 % (36.0-45.0); Lymphocytes % 30.2 % (15.3-44.8); MPV 8.2 fL (7.6-11.3); RBC Red Blood Cell Count 4.14 M/uL (3.86-4.86)
[2019-11-10 00:03] LABS: Protime INR 0.98
[2019-11-10 00:28] LABS: ALT/SGPT 45 U/L (12-78); AST/SGOT 33 U/L (15-37); Albumin 3.4 g/dL (3.4-5.0); Alkaline Phosphatase 75 U/L (45-117); BUN Blood Urea Nitrogen 6 mg/dL (7-18); Bicarbonate 23 mmol/L (21-32); Bilirubin Direct < 0.1 mg/dL (0-0.2); Bilirubin Total 0.2 mg/dL (0.2-1.0); Glucose Level 104 mg/dL (74-106); Potassium 3.5 mmol/L (3.5-5.1); Protein, Total 6.8 g/dL (6.4-8.2); Sodium Level 138 mmol/L (136-145)
[2019-11-10 01:17] LABS: Blood Morphology Comment NOT SEEN (NOT SEEN); Platelet Estimate ADEQ; Urine White Blood Cell Casts OK
[2019-11-10 01:29] LABS: Barbiturates NEGATIVE (NEGATIVE); Benzodiazepines NEGATIVE (NEGATIVE); Cocaine NEGATIVE (NEGATIVE); METHAMPHETAM NEGATIVE (NEGATIVE); Methadone NEGATIVE (NEGATIVE); Opiates NEGATIVE (NEGATIVE); Phencyclidine NEGATIVE (NEGATIVE); THC Cannibis NEGATIVE (NEGATIVE)
[2019-11-10 04:40] VITALS: TEMP 98
[2019-11-10 04:43] VITALS: BP 106/72; O2SAT 98
--- NOTE | 2019-11-10 06:18 | EKG ---
Test Date: 2019-11-09 Test Time: 23:21:01 Metropolitan Editor: TT MEASUREMENT RESULTS: Intervals: Rate: 96 SD: 156 QRSD: 74 QT: 346 QTc: 437 [place]: P: 43 SD: 156 QRS: 27 T: 31 INTERPRETIVE STATEMENTS: Normal sinus rhythm Normal ECG Compared to ECG 10/23/2019 19:24:36 Sinus tachycardia no longer present Electronically Signed On 11-10-19 06:17:37 CDT by Merrill Guzman
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
--- NOTE | 2019-11-14 15:23 | EDPHYS ---
Physician Documentation [facility] Name: Heather Hope Age: 29 yrs Sex: Female : 1990 Arrival Date: 11/09/2019 Time: 23:05 Bed 4 Private MD: ED Physician Richard Peters HPI: 11/08 23:10 This 29 yrs old Female presents to ER via Unassigned with complaints of ma2 Seizure. 23:10 The patient presents after having a single isolated seizure. Seizure onset: just prior ma2 to arrival. Current symptoms: Currently, the patient is not experiencing any symptoms. The patient has experienced similar episodes in the past. has si mom thinks she overdosed tylenol 1 nathalia prior to arrival. 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 - Social history:: Patient/guardian denies using alcohol, street drugs, The patient lives with family, Smoking status: unknown. - Family history:: not pertinent. ROS: 23:10 Constitutional: Negative for fever, chills, and weight loss, Eyes: Negative for injury, ma2 pain, redness, and discharge, Cardiovascular: Negative for chest pain, palpitations, and edema. 23:10 All other systems are negative. Exam: 23:10 Constitutional: This is a well developed, well nourished patient who is awake, alert, ma2 and in no acute distress. Chest/axilla: Normal chest wall appearance and motion. Nontender with no deformity. No lesions are appreciated. Cardiovascular: Regular rate and rhythm with a normal S1 and S2. No gallops, murmurs, or rubs. Normal PMI, no JVD. No pulse deficits. Respiratory: Lungs have equal breath sounds bilaterally, clear to auscultation and percussion. No rales, rhonchi or wheezes noted. No increased work of breathing, no retractions or nasal flaring. Abdomen/GI: Soft, non-tender, with normal bowel sounds. No distension or tympany. No guarding or rebound. No evidence of tenderness throughout. Skin: Warm, dry with normal turgor. Normal color with no rashes, no lesions, and no evidence of cellulitis. MS/ Extremity: Pulses equal, no cyanosis. Neurovascular intact. Full, normal range of motion. Neuro: Awake and alert, GCS 15, oriented to person, place, time, and situation. Cranial nerves II-XII grossly intact. Motor strength 5/5 in all extremities. Sensory grossly intact. Cerebellar exam normal. Normal gait. 23:10 Psych: Behavior/mood is suicidal, depressed, Affect is flat. Vital Signs: 23:05 BP 121 / 78; Pulse 103; Resp 16; Pulse Ox 100% on R/A; jb4 23:08 BP 121 / 78; Pulse 92; Resp 18; Temp 98; Pulse Ox 100% on R/A; mg2 11/09 01:00 BP 115 / 80; Pulse 84; Resp 18; Pulse Ox 99% on R/A; mg2 04:12 BP 106 / 72; Pulse 76; Resp 18; Pulse Ox 98% on R/A; mg2 Thomas Coma Score: 01:24 Eye Response: to voice(3). Verbal Response: incomprehensible(2). Motor Response: obeys mg2 commands(6). Total: 11. MDM: 11/08 23:05 Patient medically screened. [facility] 23:10 Differential diagnosis: drug overdose, seizure, si. [facility] 11/09 00:35 Data reviewed: vital signs, nurses notes. Counseling: I had a detailed discussion with ma2 the patient and/or guardian regarding: the historical points, exam findings, and any diagnostic results supporting the discharge/admit diagnosis, the presence of at least one elevated blood pressure reading (>120/80) during this emergency department visit, the need for outpatient follow up. Response to treatment: the patient's symptoms have markedly improved after treatment. 03:51 ED course: patient is awake talking denies si, mom mentioned that she did not report si ma2 but she think that it could be as she has had that before. . 11/08 23:06 Order name: Acetaminophen; Complete Time: 00:34 [facility] 11/08 23:06 Order name: Basic Metabolic Panel; Complete Time: 00:34 [facility] 11/08 23:06 Order name: CBC with Diff [facility] 11/08 23:06 Order name: ETOH Level; Complete Time: 00:34 [facility] 11/08 23:06 Order name: Hepatic Function; Complete Time: 00:34 [facility] 11/08 23:06 Order name: PT-INR; Complete Time: 00:34 [facility] 11/08 23:06 Order name: Ptt, Activated; Complete Time: 00:34 [facility] 11/08 23:06 Order name: Salicylate; Complete Time: 00:34 [facility] 11/08 23:06 Order name: Urine Drug Screen [facility] 11/08 23:06 Order name: EKG; Complete Time: 23:07 [facility] 11/08 23:31 Order name: Glucose, Ancillary Testing; Complete Time: 00:34 [facility] 11/09 00:19 Order name: CBC Smear Scan [facility] 11/09 01:46 Order name: Acetaminophen; Complete Time: 03:26 [facility] 11/08 23:06 Order name: Urine Test (obtain specimen); Complete Time: 01:00 [facility] 11/08 23:06 Order name: EKG - Nurse/Tech; Complete Time: 23:22 [facility] 11/08 23:06 Order name: IV Saline Lock; Complete Time: 23:22 [facility] 11/08 23:06 Order name: Labs collected and sent; Complete Time: 23:22 [facility] 11/08 23:06 Order name: Urine Dipstick-Ancillary (obtain specimen); Complete Time: 23:22 ma Administered Medications: No medications were administered Disposition: 11/10/19 03:52 Discharged to Home. Impression: Major depressive disorder, recurrent. - Condition is Stable. - Discharge Instructions: Major Depressive Disorder. - Medication Reconciliation Form, Thank You Letter, Antibiotic Education, Prescription Opioid Use form. - Follow up: Private Physician; When: Tomorrow; Reason: If symptoms return. Signatures: Dispatcher [employer] Don Ramachandran RN RN jb4 Richard Peters MD MD ma2 Adair Mccormick RN RN mg2 Corrections: (The following items were deleted from the chart) 00:35 11/08 23:08 ACETAMINOPHEN+C.LAB.BRZ ordered. [facility] 05/28 03:52 00:35 11/10/2019 00:35 Transfer ordered to Psych Facility. Diagnosis is Suicidal ma2 ideations. Reason for transfer: Higher level of care. Accepting physician is osh. Condition is Stable. Problem is new. Symptoms are unchanged. ma2 04:34 03:52 11/10/2019 03:52 Discharged to Home. Impression: Major depressive disorder, mg2 recurrent. Condition is Stable. Forms are Medication Reconciliation Form, Thank You Letter, Antibiotic Education, Prescription Opioid Use. Follow up: Private Physician; When: Tomorrow; Reason: If symptoms return. ma2
== END 2019-11-10 04:34 | disposition home or self-care (01) ==
LOC: ER 23:03
DX: F33.9 Major depressive disorder, recurrent, unspecified (principal)
CPT/HCPCS: 36415; 80048; 80076; 80307; 80320; 80329; 82947; 85025; 85610; 85730; 93005; 99284

== ENCOUNTER 2019-11-11 15:57 | Emergency (ER) | payer OTHER ==
--- OUTSIDE RECORDS SUMMARY | 2019-11-11 15:59 | XMS REPORT | Clinical Summary ---
:1990 [facility] Address [address] [place] [address] Care Team Providers Name Role Phone Unavailable Primary Care Provider Unavailable Allergies No Known Allergies Medications Medication Sig Dispensed Refills Start Date End Date Status levETIRAcetam (KEPPRA) Take 1 tablet 60 tablet 2 05/19/2017 Active 1000 MG tablet (1,000 mg total) by mouth 2 (two) times daily. vitamin Take 1 tablet by 90 tablet 3 05/20/2017 Active w/ectzcnv-vziy-afejsk mouth daily. ( PLUS) 27 mg iron- [...] Not on file Results Not on fileafter 11/10/2018 Insurance Payer Benefit Plan / Group Subscriber ID Type Phone A [facility] MEDICAID [place]ICAID [place] xxxxxxxxx Medicaid [id number] 1 Advance Directives For more information, please contact:[facility] [employer] [facility] [place] [address] [place], [place] [phone] Code Status Date Activated Date Inactivated Comments Full Code 05/14/2017 10:10 PM 05/19/2017 2:55 PM This code status was determined by: Patient
--- OUTSIDE RECORDS SUMMARY | 2019-11-11 16:03 | XMS REPORT ---
:1990 Author Organization [facility] t Address [address] [place] [address] Care Team Providers Name Role Phone Aleksandar [...] Allergie 07-08 Corpus s 00:00: [facility] Medications This patient has no known medications. Procedures This patient has no known procedures. Encounters Start End Encounter Admission Attending Care Care Encounter Source Date/Time Date/Time Type Type Clinicians Facility Department ID 2019-10-24 2019-10-24 [facility] [id number] 14:33:37 23:59:00 Encounter Sj OCHOA 350.1.13.10 MEDICAL 4.2.7.2.686 [place] [id number] 2019-10-11 2019-10-11 [facility] [id number] 00:00:00 00:00:00 Cecilia Leach 350.1.13.10 [place] 4.2.7.2.686 Professio [phone] [address] 2019-10-06 2019-10-06 [facility] [id number] 08:13:12 15:30:52 ne Visit Cecilia Leach 350.1.13.10 [place] 4.2.7.2.686 Professio [phone] [address] 2019-08-12 2019-08-12 Case Ad, [facility] [id number] 00:00:00 00:00:00 Management Daina Leach 350.1.13.10 [place] 4.2.7.2.686 Professio [phone] [address] 2019-08-12 2019-08-12 Telephone Ad, [facility] [id number] 00:00:00 00:00:00 Daina Leach 350.1.13.10 [place] 4.2.7.2.686 Professio [phone] [address] 2019-08-10 2019-08-10 Office Adum, [facility] [id number] 14:12:35 15:35:54 Visit Daina Leach 350.1.13.10 [place] 4.2.7.2.686 Professio [phone] [address] Results Test Description Test Time Test [...] = Expiration Dt) 06-14-2020 N Thyroid Stimulating [id number] 06:31:44 Test Item Value Reference Range Interpretation Comments TSH (test code = TSH) 3.830 mIU/mL 0.270-4.200 Lipid [id number] 06:24:40 Test Item Value Reference Range Interpretation Comments Cholesterol Total 152 mg/dL 0-200 RISK OF HE ART (test code = DISEASEPublishe d by Cholesterol Total) [place] [employer] Laurel lyte Optimal Borderl ine [...] LDL/HDL Ratio=L DL Calc/HDL Chol Urine Drug [id number] 21:53:06 Test Item Value Reference Range Interpretation [...] if desired . Urinalysis with Culture, if [id number] 21:40:53 Test Item Value Reference Range Interpretation [...] Indicated Not Indicated Micro Ind?) Comprehensive Metabolic [id number] 21:34:15 Test Item Value Reference Range Interpretation [...] = A/G 1.6 ratio N Ratio) Alcohol [id number] 21:34:15 Test Item Value Reference Range Interpretation Comments Ethanol Level (test <0.00 g/dL 0.00-0.01 Intoxica vandana 0.080 g/dL code = Ethanol or more Level) Ethanol Inst (test <0 N code = Ethanol Inst) Comprehensive Metabolic [id number] 21:34:15 Test Item Value Reference Range Interpretation [...] National Kidney Foundation, http://nkdep.ni h.gov Comprehensive Metabolic [id number] 21:34:15 Test Item Value Reference Range Interpretation [...] Foundation, http://nkdep.ni h.gov Complete Blood Count with Udrxxmexwdfj0134-78-12 21:15:24 Test Item Value Reference Range Interpretation [...] code = IPF) 0 % N Automated [id number] 21:15:24 Test Item Value Reference Range Interpretation Comments Neutro Auto (test code = Neutro 54.3 % 36.0-70.0 Auto) Lymph Auto (test code = Lymph Auto) 32.3 % 12.0-44.0 Kinney Auto (test code = Kinney Auto) 11.1 % 0.0-11.0 H Eos, Auto (test code = Eos, Auto) 1.3 % 0.0-7.0 Basophil Auto (test code = Basophil 0.7 % 0.0-2.0 Auto) Neutro Absolute (test code = Neutro 6.2 x10 1.6-7.4 Absolute) Lymph Absolute (test code = Lymph 3.71 x10 .50-4.60 Absolute) Kinney Absolute (test code = Kinney 1.28 x10 .00-1.20 H Absolute) Eos Absolute (test code = Eos 0.15 x10 0.00-0.74 Absolute) Baso Absolute (test code = Baso 0.08 x10 0.00-0.21 Absolute) IG [id number] 21:15:24 Test Item Value Reference Range Interpretation Comments IG (test code = IG) 0.3 % 0.0-5.0 IG Abs (test code = IG Abs) 0 x10 N HCG Qualitative [id number] 20:45:17 Test Item Value Reference Range Interpretation [...] 72 hours. Lot # (test code = [id number] N Lot #) Expiration Dt (test 2020-12-12 N code = Expiration Dt) Neg Control (test Negative code = Neg Control) Pos Control (test Positive code = Pos Control) Internal QC (test Acceptable code = Internal QC) RPR [id number] 12:07:58 Test Item Value Reference Range Interpretation [...] = 04-14-2020 N Expiration Dt) Thyroid Stimulating [id number] 07:59:52 Test Item Value Reference Range Interpretation Comments TSH (test code = TSH) 0.717 mIU/mL 0.270-4.200 Lipid [id number] 07:52:46 Test Item Value Reference Range Interpretation Comments Cholesterol Total 141 mg/dL 0-200 RISK OF HE ART (test code = DISEASEPublishe d by Cholesterol Total) [employer] Laurel lyte Optimal Borderl ine [...] LDL/HDL Ratio=L DL Calc/HDL Chol Urine Drug [id number] 15:27:40 Test Item Value Reference Range Interpretation [...] matory test if desired . Comprehensive Metabolic [id number] 15:15:20 Test Item Value Reference Range Interpretation [...] A/G 1.9 ratio N Ratio) Comprehensive Metabolic [id number] 15:15:20 Test Item Value Reference Range Interpretation [...] the National Kidney Foundation, http://nkdep.ni h.gov Alcohol [id number] 15:15:20 Test Item Value Reference Range Interpretation Comments Ethanol Level (test <0.00 g/dL 0.00-0.01 Intoxica vandana 0.080 g/dL code = Ethanol or more Level) Ethanol Inst (test <0 N code = Ethanol Inst) Comprehensive Metabolic [id number] 15:15:20 Test Item Value Reference Range Interpretation [...] ag e have not been validated by [facility] MDRD study and should be interpreted [...] ag e have not been validated by [facility] MDRD study and should be interpreted wit h caution. eGFR R esult Interpretation: eGFR > or = 60 is in the Normal RangeeGF R < 60 may mean kid shannan diseaseeGFR < 1 5 may mean kidney failure Rang es recommended by the National Kidney Foundation, http://nkdep.ni h.gov Urinalysis [id number] 15:11:20 Test Item Value Reference Range Interpretation Comments UA WBC (test code = UA WBC) 6-10 0-5 A UA RBC (test code = UA RBC) 0-5 0-5 UA Bacteria (test code = UA Moderate A Bacteria) UA Squam Epithelial (test code = UA TNTC A Squam Epithelial) UA Mucous (test code = UA Mucous) Few A Urinalysis with Microscopic if [id number] 14:42:58 Test Item Value Reference Range Interpretation [...] GL_SJM_UA_MICRO _IN D Complete Blood Count with Zlkvukdidlnh9056-75-80 14:37:26 Test Item Value Reference Range Interpretation [...] code = IPF) 0 % N Automated [id number] 14:37:26 Test Item Value Reference Range Interpretation Comments Neutro Auto (test code = Neutro 65.8 % 36.0-70.0 Auto) Lymph Auto (test code = Lymph Auto) 25.5 % 12.0-44.0 Kinney Auto (test code = Kinney Auto) 7.3 % 0.0-11.0 Eos, Auto (test code = Eos, Auto) 0.7 % 0.0-7.0 Basophil Auto (test code = Basophil 0.5 % 0.0-2.0 Auto) Neutro Absolute (test code = Neutro 6.0 x10 1.6-7.4 Absolute) Lymph Absolute (test code = Lymph 2.34 x10 .50-4.60 Absolute) Kinney Absolute (test code = Kinney .67 x10 .00-1.20 Absolute) Eos Absolute (test code = Eos 0.06 x10 0.00-0.74 Absolute) Baso Absolute (test code = Baso 0.05 x10 0.00-0.21 Absolute) IG [id number] 14:37:26 Test Item Value Reference Range Interpretation Comments IG (test code = IG) 0.2 % 0.0-5.0 IG Abs (test code = IG Abs) 0 x10 N HCG Qualitative [id number] 14:34:08 Test Item Value Reference Range Interpretation [...] 72 hours. Lot # (test code = [id number] N Lot #) Expiration Dt (test 2020-03-14 N code = Expiration Dt) Neg Control (test Negative code = Neg Control) Pos Control (test Positive code = Pos Control) Internal QC (test Acceptable code = Internal QC) DRUGS OF ABUSE SCREEN [id number] 17:11:00 Test Item Value Reference Range Interpretation [...] = [place]) concentrati on: 300 ng/mL URINALYSIS [id number] 17:08:00 Test Item Value Reference Range Interpretation [...] (test code = MOD NONE BACU) URINALYSIS [id number] 17:00:00 Test Item Value Reference Range Interpretation [...] (test code = NONE BACU) HCG SERUM [id number] 16:52:00 Test Item Value Reference Range Interpretation Comments HCG SERUM QUAL (test code = HCGQL) NEGATIVE NEGATIVE - CT HEAD/BRAIN W/O [id number] 16:51:00 FAX: Theresa Fields MD [place]: EM St: REG Name: SAHRA NETTLES [facility] : 1990 Age/S: 28/F [address] [facility] Unit: [id number] Loc: E.ERS [place], [place]: [place] [id number] Acct: [id number] Dis Date: Status: REG ER PHONE #: [phone] Exam Date: 02/23/2019 1642 FAX #: [phone] Reason: SEIZURE EXAMS: CPT CODE: [id number] CT HEAD/BRAIN W/O CONT 17587 Dictation location: U19. CT HEAD WITHOUT CONTRAST. [...] MD Technologist: SAHRA DICKSON Trnscrd Dt/Tm: 02/23/2019 (7191) [email or web address] Orig Print D/T: S: 02/23/2019 (0957 PAGE 1 Signed ReportBASIC METABOLIC [id number] 16:31:00 Test Item Value Reference Range Interpretation [...] CA) 8.8 mg/dl 8.0-10.5 N BASIC METABOLIC [id number] 16:26:00 Test Item Value Reference Range Interpretation [...] code = CA) mg/dl 8.0-10.5 CBC W/AUTO [id number] 16:15:00 Test Item Value Reference Range Interpretation [...] 3-60 N code = VLDL) RAPID PLASMA [id number] 10:31:00 Test Item Value Reference Range Interpretation Comments RAPID PLASMA REAGIN (test code = Nonreactive Nonreactive RPR) GLYCOSYLATED HEMOGLOBIN (HA1C)2018-12-07 10:05:00 Test Item Value Reference Range Interpretation Comments GLYCOSYLATED HEMOGLOBIN (HA1C) 5.8 % TOT HB 4.5-6.2 N (test code = GLYHGB) [id number] 15:31:00 Test Item Value Reference Range Interpretation Comments ACETAMINOPHEN (test < 1 MCG/ML 10-30 L Acetamin ophen is code = ACET) possibly toxic at levels of: 1. m ore than 150 MCG/ML 4 hours post kaylin stion. 2. more than 5 0 MCG/ML 12 hours post ingestion. [id number] 15:31:00 Test Item Value Reference Range Interpretation Comments SALICYLATE (test code = < 3 MG/DL 0-20 N Refe rence Range: BOSSMAN) Analgesic...... ...... ...... < 10 mg /dl Therapeutic.... ...... ...... 15-20 mg /dl Mild Toxicity....... ...... . > 30 mg/dl Severe Toxicity....... ..... > 60 mg/dl UA RFLX [id number] 14:18:00 Test Item Value Reference Range Interpretation [...] Clean Catch (test code = UASPEC) UA [id number] 14:18:00 Test Item Value Reference Range Interpretation Comments UA WBC (test code = WBCU) < 10 #/hpf <10 UA RBC (test code = RBCU) 0-2 #/hpf NONE SEEN A UA BACTERIA (test code = BACU) RARE #/hpf NONE SEEN UA SQUAMOUS CELLS (test code = 0 - 20 #/lpf <100 SQU) UA MUCUS (test code = MUCU) 1+ #/lpf NONE SEEN BASIC METABOLIC [id number] 14:16:00 Test Item Value Reference Range Interpretation [...] 9.4 MG/DL 8.7-10.5 N CA) HEPATIC FUNCTION [id number] 14:16:00 Test Item Value Reference Range Interpretation [...] 50-136 N TOTAL (test code = ALKP) [id number] 14:16:00 Test Item Value Reference Range Interpretation Comments CK (test code = CKT) 87 Units/L 26-192 N [id number] 14:16:00 Test Item Value Reference Range Interpretation Comments ALCOHOL (test code = < 3 MG/DL 0-10 N 0 - 10: Should be ALC) interpreted as NEGATIVE. 11 - 50: None to mild euphoria. 51 - 100: Mild influence on vision and dark adapta tion. > 80: Legal intoxication; D epression of STOREROOM CLERK; Increasing degr ee of poisoning. > 400: Fatalities repo rted. Results are for medical purposes only a nd not forlegal or emp loyment evaluative purp oses. BASIC METABOLIC [id number] 14:09:00 Test Item Value Reference Range Interpretation [...] 9.4 MG/DL 8.7-10.5 N CA) HEPATIC FUNCTION [id number] 14:09:00 Test Item Value Reference Range Interpretation [...] TOTAL (test Units/L 50-136 code = ALKP) [id number] 14:09:00 Test Item Value Reference Range Interpretation Comments CK (test code = CKT) Units/L 26-192 [id number] 14:09:00 Test Item Value Reference Range Interpretation Comments ALCOHOL (test code = ALC) MG/DL 0-10 LACTIC ACID [id number] 13:50:00 Test Item Value Reference Range Interpretation Comments LACTIC ACID POC 0.97 MMOL/L 0.90-1.70 N Performed by certified (test code = LACTP) desktop publishing operator at [facility] [id number] 13:48:00 Test Item Value Reference Range Interpretation Comments GLUBED (test code = 88 MG/DL 65-99 N Performe d by certified GLUBED) desktop publishing operator at [facility] DRUG OF ABUSE SCREEN [id number] 13:43:00 Test Item Value Reference Interpretation Comments [...] by layton rader methods (i.e., GC/MS) at [facility]. Results of scre en may not be usedin crimi nal justice, job performance or professionalcre dential review, or infa nt custody issues. Negativ e [place] Level ng/ml ------- ----- Cocaine 300 Methamp hetamine (Ecstacy) 500 Cannabinoids (THC) 50 Amphetamine 1000 Barbiturate s 200 Benzodia zepines 200 Opiat es 300 Ph encyclidine (PCP) 25 UR HCG [id number] 13:39:00 Test Item Value Reference Range Interpretation [...] using aquantitative h CG assay. UA RFLX [id number] 13:38:00 Test Item Value Reference Range Interpretation [...] Clean Catch (test code = UASPEC) UA [id number] 13:38:00 Test Item Value Reference Range Interpretation Comments UA WBC (test code = WBCU) #/hpf <10 UA RBC (test code = RBCU) #/hpf NONE SEEN UA SQUAMOUS CELLS (test code = SQU) #/lpf <100 UA RFLX [id number] 13:38:00 Test Item Value Reference Range Interpretation [...] Clean Catch (test code = UASPEC) UA [id number] 13:38:00 Test Item Value Reference Range Interpretation Comments UA WBC (test code = WBCU) #/hpf <10 UA RBC (test code = RBCU) #/hpf NONE SEEN UA SQUAMOUS CELLS (test code = SQU) #/lpf <100 CBC W/AUTO [id number] 13:26:00 Test Item Value Reference Range Interpretation [...] = BA#) 0.05 x10 3/uL 0.0-0.2 N [id number] 19:07:00 Test Item Value Reference Interpretation Comments Range LEVETIRACETAM 28.7 ug/mL 10.0-40.0 This test was developed and (test code = its performance LEVTAM) characteristics determined by [facility]. It has not been cleared orappro froylan by the Food and Drug Administration. Performed At: [facility] [address] [facility] [place], [place] [id number] ra Larissa MENDOZA Ph:[phone] BASIC METABOLIC [id number] 04:58:00 Test Item Value Reference Range Interpretation [...] code = 8.9 MG/DL 8.7-10.5 N CA) [id number] 04:58:00 Test Item Value Reference Range Interpretation Comments MAGNESIUM (test code = MAG) 1.9 MG/DL 1.8-2.4 N CBC W/AUTO [id number] 04:08:00 Test Item Value Reference Range Interpretation [...] 0.0-0.2 N NRBC#) - MRI BRAIN W/O [id number] 13:51:00 Patient Name: SAHRA NETTLES Unit No: [id number] EXAMS: CPT CODE: [id number] MRI BRAIN W/O CONTRAST 73588 Reason: sz INDICATION: Seizure COMPARISON: CT brain, [...] MD Technologist: Andre Self MRI Trscrpt Dt/ (5590)t.GAVIOTARVipinDW6 Orig Print D/T: S: 09/17/2018 (1596) [facility] CntNAME: SAHRA NETTLES NOVEMBER [address] [facility] PHYS: [place] [address] : 1990 AGE: 27 SEX: F LOC: D.D313 1 PHONE #: [phone] EXAM DATE: 09/17/2018 STATUS: ADM IN FAX #: RAD NO: DC Dt: PAGE 1 Signed [id number] 07:25:00 Test Item Value Reference Range Interpretation Comments PROLACTIN (test code = 24.6 ng/mL 4.8-23.3 H Perfo rmed At: HD PROLAC) [facility] [address] [id number] Sb Man MD Ph:[phone] UA RFLX MICROSCOPIC [id number] 19:02:00 Test Item Value Reference Range Interpretation [...] UACULT) URINE SOURCE: Clean CatchUA RFLX MICROSCOPIC [id number] 18:56:00 Test Item Value Reference Range Interpretation [...] (test code = UACULT) URINE SOURCE: Clean [id number] 15:56:00 Test Item Value Reference Range Interpretation Comments CK (test code = CKT) 34 Units/L 26-192 N BASIC METABOLIC [id number] 12:57:00 Test Item Value Reference Range Interpretation [...] code = 8.6 MG/DL 8.7-10.5 L CA) [id number] 12:57:00 Test Item Value Reference Range Interpretation Comments CK (test code = CKT) 32 Units/L 26-192 N CBC W/AUTO [id number] 12:33:00 Test Item Value Reference Range Interpretation [...] 3/uL 0.0-0.2 N NRBC#) TOTAL IRON BINDING [id number] 05:50:00 Test Item Value Reference Range Interpretation Comments SERUM IRON (test code = IRON) 17 MCG/DL 50-170 L TOTAL IRON BINDING CAPACITY (test 363 MCG/DL 280-400 N code = TIBC) IRON SATURATION (test code = 5 % 15-50 L FESAT) [id number] 05:50:00 Test Item Value Reference Range Interpretation Comments FERRITIN (test code = LULI) 11 NG/ML 3-105 N HEPATIC FUNCTION [id number] 05:32:00 Test Item Value Reference Range Interpretation [...] code = ALKP) - CT HEAD/BRAIN W/O [id number] 20:19:00 Patient Name: SAHRA NETTLES Unit No: [id number] EXAMS: CPT CODE: [id number] CT HEAD/BRAIN W/O CONT 28099 Reason: seizure TECHNIQUE: Contiguous 5 mm images [...] Print D/T: S: 09/14/2018 (2021) CTDI: DLP: [facility] NAME: SAHRA NETTLES [address] [address] [facility] PHYS: NGA. - Keanu Váz[place] [address] : 1990 AGE: 27 SEX: F LOC: DCHERYL PHONE#: [phone] EXAM DATE: 09/14/2018 STATUS: REG ER FAX #: RAD NO: DC Dt: PAGE 1 Signed Report- XR CHEST 1 [id number] 20:18:00 Patient Name: SAHRA NETTLES Unit No: [id number] EXAMS: CPT CODE: [id number] XR CHEST 1 V 01063 Reason: screen for pneumonia FINDINGS: Single view ofthe chest shows normal heart size and pulmonary vasculature. The lungs are clear bilaterally. There is no focal infiltrate, pleural effusion or pneumothorax. IMPRESSION: No a cute cardiopulmonary findings at 2018 Reported and signed by: Lashell Jimenez MD CC: Kenau Vázquez MD; Cristiane Heath Technologist: Edel Cade CT Trscrpt Dt/ (2017)t.GAVIOTAR.DKW Orig PrintD/T: S: 09/14/2018 (2020) [facility] NAME: SAHRA NETTLES [address] [facility] PHYS: NGA. Keanu Váz[place] [address] : 1990 AGE: 27 SEX: F LOC: D.NER PHONE #: [phone] EXAM DATE: STATUS: REG ER FAX #: RAD NO: DC Dt: PAGE 1 Signed ReportHCG SERUM [id number] 20:04:00 Test Item Value Reference Range Interpretation [...] using aquantitative h CG assay. BASIC METABOLIC [id number] 19:51:00 Test Item Value Reference Range Interpretation [...] 9.3 MG/DL 8.7-10.5 N CA) CBC W/AUTO [id number] 19:46:00 Test Item Value Reference Range Interpretation [...] BA#) 0.05 x10 3/uL 0.0-0.2 N BLOOD [id number] 10:00:00 Test Item Value Reference Range Interpretation Comments CULTURE (BEAKER) (test No growth in 5 days code = 1095) HCG, QUANTITATIVE, [id number] 15:37:00 Test Item Value Reference Range Interpretation Comments GONADOTROPIN, CHORIONIC (HCG) 96969 mIU/mL 0-10 H QUANT (BEAKER) (test code = 649) Non- Females: <10 mIU/mL Females: Gestation Age Reference Range(mIU/mL) 0.2-1 Week 5-50 1-2 Weeks 50-500 2-3 Weeks 100-5,000 3-4Weeks 500-10,000 4-5 Weeks 1,000-50,000 5-6 Weeks 10,000-100,000 6-8 Weeks 15,000-200,000 2-3 Months 10,000-100,000COMPREHENSIVE METABOLIC [id number] 15:10:00 Test Item Value Reference Range Interpretation [...] PATIEN TS. CBC W/PLT COUNT & AUTO [id number] 14:53:00 Test Item Value Reference Range Interpretation [...] (test code = 2801) U/S, , FIRST [id number] 07:52:00Reason for exam:-> Reason for exam:->please include [...] 1 day. An embryonic pole is evident. [place]-rump length measures 0.63 cm, correlating with estimated [...] Garrido Verified Date/Time: 05/17/2017 07:52:37 Reading Location: [facility] C013X Ortho Consult Reading Room PREGNANCY SCREEN, [id number] 05:28:00 Test Item Value Reference Range Interpretation Comments TEST URINE (BEAKER) (test Positive code = 583) MR, BRAIN, WITHOUT [id number] 18:54:00Reason for exam:->Stroke evaluationFINAL REPORT MRI brain [...] Parra Verified Date/Time: 05/15/2017 18:54:11 Reading Location: [facility] Radiology Reading Room EEG AWAKE AND [id number] 12:08:00Reason for exam:->? nonconvulsive statusDATE OF TEST: 05/15/2017DATE OF REPORT 05/15/2017 ACC: [id number] EE Start time: 1034 Stop time: 1054 ICD-10: R56.9CPT Code: 69830UXSQCTE: 26 y/o woman with epilepsy found down [...] recordings.Marika Smith M.D.Neurophysiology FellowSwathi Harper M.D.Neurophysiology Attending [id number] 04:27:00 Test Item Value Reference Range Interpretation Comments PROCALCITONIN (BEAKER) (test code 0.17 ng/mL <0.05 H = 3036) SEPSIS RISK (ng/mL)Low: 0.05-0.50Intermediate: 0.51-2.00High: >=[id number] 03:15:00 Test Item Value Reference Range Interpretation Comments PHOSPHORUS (BEAKER) (test code = 3.1 mg/dL 2.3-4.7 604) [id number] 03:15:00 Test Item Value Reference Range Interpretation Comments MAGNESIUM (BEAKER) (test code = 1.9 mg/dL 1.6-2.6 627) BASIC METABOLIC [id number] 03:15:00 Test Item Value Reference Range Interpretation [...] code = 380) LACTIC ACID, VENOUS, WHOLE [id number] 03:09:00 Test Item Value Reference Range Interpretation Comments LACTATE BLOOD VENOUS (2) (BEAKER) 0.6 mmol/L 0.5-2.2 (test code = 2872) Effective 10/17/2015: Units/Reference Range ChangeNew: 0.5-2.2 mmol/L Previous: 5-20 mg/dLPROTHROMBIN TIME/[id number] 03:07:00 Test Item Value Reference Range Interpretation [...] = 2801) RAD, CHEST, 1 VIEW, NON [id number] 01:06:00Reason for exam:->possible infectionShould this be performed [...] MDReport Verified Date/Time: 05/15/2017 01:06:06 Reading Location: [address] Reading Room
[2019-11-11 16:43] LABS: Absolute Lymphocytes (CBC) 2.5 K/uL (0.7-4.9); Basophils % 0.9 % (0-1.3); Hematocrit 33.8 % (36.0-45.0); Lymphocytes % 28.6 % (15.3-44.8); MPV 8.1 fL (7.6-11.3); RBC Red Blood Cell Count 4.12 M/uL (3.86-4.86)
[2019-11-11] MEDS ORDERED: SILVER SULFADIAZINE 1% 25 GM TOP ONE (16:47)
[2019-11-11] MEDS ORDERED: NA CHLORIDE 0.9% 1,000 ML ONE (16:47)
[2019-11-11] MEDS ORDERED: LORazepam 2 MG/ML VIAL ONE (16:47)
[2019-11-11] MEDS ORDERED: levETIRAcetam 1,000 MG in NA CHLORIDE 0.9% 100 ML IV ONE (17:00)
[2019-11-11 17:18] LABS: Protime INR 1.01
[2019-11-11 17:23] LABS: ALT/SGPT 47 U/L (12-78); AST/SGOT 33 U/L (15-37); Albumin 3.5 g/dL (3.4-5.0); Alkaline Phosphatase 84 U/L (45-117); BUN Blood Urea Nitrogen 7 mg/dL (7-18); Bicarbonate 25 mmol/L (21-32); Bilirubin Direct < 0.1 mg/dL (0-0.2); Bilirubin Total 0.2 mg/dL (0.2-1.0); Glucose Level 104 mg/dL (74-106); Potassium 3.7 mmol/L (3.5-5.1); Sodium Level 140 mmol/L (136-145)
[2019-11-11 19:10] LABS: Barbiturates NEGATIVE (NEGATIVE); Benzodiazepines NEGATIVE (NEGATIVE); Cocaine NEGATIVE (NEGATIVE); METHAMPHETAM NEGATIVE (NEGATIVE); Methadone NEGATIVE (NEGATIVE); Opiates NEGATIVE (NEGATIVE); Phencyclidine NEGATIVE (NEGATIVE); THC Cannibis NEGATIVE (NEGATIVE)
[2019-11-11 19:43] LABS: Urine Blood NEGATIVE (NEG); Urine Glucose NEGATIVE (NEG); Urine Protein NEGATIVE (NEG); Urine pH 6.5 (5.0-7.0)
--- NOTE | 2019-11-11 19:59 | RAD REPORT ---
EXAM DESCRIPTION: CT - Head C Spine Mpr Wo Con - 11/11/2019 7:43 pm CLINICAL HISTORY: Seizure. Head and neck injury status post fall. Head and neck pain COMPARISON: 2016 TECHNIQUE: Computed axial tomography of the head and cervical spine was obtained. Sagittal and coronal reconstruction was performed. All CT scans are performed using dose optimization technique as appropriate and may include automated exposure control or mA/KV adjustment according to patient size. FINDINGS: An intracranial bleed is not seen. The ventricles are normal in caliber. An extra-axial fl uid collection is not noted.Fluid within the visualized sinuses and mastoids is not seen A cervical fracture is not visualized. No dislocation is noted. IMPRESSION: No acute intracranial abnormality is seen. A cervical fracture is not visualized. If the patient continues to have symptoms to suggest intracra nial /spinal cord pathology then MRI would be recommended
--- NOTE | 2019-11-11 20:08 | RAD REPORT ---
EXAM DESCRIPTION: CT - Facial Bones W/ Mpr - 11/11/2019 7:43 pm CLINICAL HISTORY: Facial injury status post fall. Facial pain COMPARISON: 2009 TECHNIQUE: Computed axial tomography of the face was obtained. Coronal and sagittal reconstruction w as performed. All CT scans are performed using dose optimization technique as appropriate and may include automated exposure control or mA/KV adjustment according to patient size. FINDINGS: Left cheek /supraorbital swelling. A fracture is not seen. A TMJ dislocation is not noted. The globes are intact. Fluid within the sinuses is not seen. IMPRESSION: Negative for a facial fracture.
[2019-11-11 22:23] VITALS: TEMP 100
[2019-11-11 22:30] VITALS: O2SAT 97
[2019-11-11 22:33] VITALS: BP 129/82
--- NOTE | 2019-11-12 12:55 | EKG ---
Test Date: 2019-11-11 Test Time: 18:00:41 Motion Picture Scene Builder: MARISOL MEASUREMENT RESULTS: Intervals: Rate: 117 WV: 164 QRSD: 72 QT: 326 QTc: 454 [place]: P: 53 WV: 164 QRS: 36 T: 36 INTERPRETIVE STATEMENTS: Sinus tachycardia Cannot rule out Anterior infarct, age undetermined Abnormal ECG Electronically Signed On 11-12-19 12:54:26 CDT by Merrill Guzman
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
== END 2019-11-11 21:49 | disposition home or self-care (01) ==
LOC: ER 15:57
PROC: 05HQ33Z Insertion of Infusion Device into Left External Jugular Vein, Percutaneous Approach (ICD-10-PCS; principal; 2019-11-11)
DX: G40.802 Other epilepsy, not intractable, without status epilepticus (principal); T22.211A Burn of second degree of right forearm, initial encounter; W18.00XA Striking against unspecified object with subsequent fall, initial encounter; Y93.9 Activity, unspecified; Y92.9 Unspecified place or not applicable
CPT/HCPCS: 96365; 96361; 93005; 85025; 80048; 36415; 80320; 80329 ×2; 81025; 85610; 80076; 80307 ×8; 85730; 81003; 70450; 72125; 70486; 76377; 51702; 96375; 99285; 36569; J1953; J7030

== ENCOUNTER 2019-12-14 17:30 | Emergency (ER) | payer OTHER ==
[2019-12-14] MEDS ORDERED: ONDANSETRON 4 MG/2 ML VIAL ONE (18:25)
[2019-12-14] MEDS ORDERED: NA CHLORIDE 0.9% 1,000 ML ONE (18:25)
[2019-12-14 18:46] LABS: Hematocrit 37.5 % (36.0-45.0); RBC Red Blood Cell Count 4.33 M/uL (3.86-4.86)
[2019-12-14 18:47] LABS: Absolute Lymphocytes (CBC) 2.1 K/uL (0.7-4.9); Basophils % 0.7 % (0-1.3); Lymphocytes % 21.2 % (15.3-44.8); MPV 8.3 fL (7.6-11.3)
[2019-12-14 18:49] LABS: BUN Blood Urea Nitrogen 7 mg/dL (7-18); Bicarbonate 24 mmol/L (21-32); Glucose Level 103 mg/dL (74-106); Sodium Level 140 mmol/L (136-145)
[2019-12-14] MEDS ORDERED: levETIRAcetam 1,000 MG in NA CHLORIDE 0.9% 100 ML IV ONE (19:00)
--- NOTE | 2019-12-14 19:27 | ER ---
Nurse's Notes [facility] Name: Heather Hope Age: 29 yrs Sex: Female : 1990 Arrival Date: 12/14/2019 Time: 17:32 Bed 19 Private MD: Diagnosis: Epilepsy and recurrent seizures Presentation: 12/13 17:35 Chief complaint: EMS states: Called for possible seizure. He friend is driving her from ca1 work when she noticed a possible seizure that lasted 5 seconds. Pt has history of seizure with multiple ER visits. Pt is currently taking Keppra for the seizures. Pt is drowsy but easily awaken. VS: BP 134/60, WA 70, RR 20, 98% RA. T-99.8F, BGL 89. 17:43 Coronavirus screen: Proceed with normal triage. Patient denies a cough. Patient denies ca1 shortness of breath or difficulty breathing. Patient denies measured and/or subjective temperature greater than 100.4F prior to today's visit. Patient denies travel on a cruise ship or to a country the [facility] currently lists as an affected area. Patient denies contact with known and/or suspected case of COVID-19. Ebola Screen: Patient negative for fever greater than or equal to 101.5 degrees Fahrenheit, and additional compatible Ebola Virus Disease symptoms Patient denies exposure to infectious person. Patient denies travel to an Ebola-affected area in the 21 days before illness onset. No symptoms or risks identified at this time. Initial Sepsis Screen: Does the patient meet any 2 criteria? No. Patient's initial sepsis screen is negative. Does the patient have a suspected source of infection? No. Patient's initial sepsis screen is negative. Risk Assessment: Do you want to hurt yourself or someone else? Patient reports no desire to harm self or others. Onset of symptoms was December 14, 2019. 17:43 Method Of Arrival: EMS: [facility] ca1 17:43 Acuity: DARLYN 3 ca1 Triage Assessment: 17:47 General: Appears in no apparent distress. comfortable, Behavior is calm, cooperative, ca1 drowsy. Pain: Denies pain. Pain: Pain began pt states, "I just don't feel right". EENT: No signs and/or symptoms were reported regarding the EENT system. Neuro: Level of Consciousness is obeys commands, Oriented to person, place, time, situation, Appropriate for age. Neuro: Revising Clerk are equal bilaterally Moves all extremities. Speech is normal, Facial symmetry appears normal, Pupils are PERRLA. Cardiovascular: Heart tones S1 S2 present Capillary refill < 3 seconds Patient's skin is warm and dry. Respiratory: Airway is patent Respiratory effort is even, unlabored, Respiratory pattern is regular, symmetrical. GI: Abdomen is round non-distended, Bowel sounds present X 4 quads. Abd is soft and non tender X 4 quads. : No signs and/or symptoms were reported regarding the genitourinary system. Derm: Skin is intact, is healthy with good turgor, Skin is pink, warm \\T\\ dry. Musculoskeletal: Circulation, motion, and sensation intact. Capillary refill < 3 seconds. 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 - Social history:: Smoking status: Patient denies any tobacco usage or history of. Screenin:50 Abuse screen: Denies threats or abuse. Denies injuries from another. Nutritional ca1 screening: No deficits noted. Tuberculosis screening: No symptoms or risk factors identified. Fall Risk IV access (20 points). Assessment: 17:50 Reassessment: see triage assessment. ca1 17:53 GI: Pt is actively vomiting undigested food. ca1 18:50 Reassessment: Patient appears in no apparent distress at this time. No changes from ca1 previously documented assessment. Patient and/or family updated on plan of care and expected duration. Pain level reassessed. Patient is alert, oriented x 3, equal unlabored respirations, skin warm/dry/pink. 19:35 Reassessment: Patient appears in no apparent distress at this time. Patient is alert, ca1 oriented x 3, equal unlabored respirations, skin warm/dry/pink. Patient is alert/active/playful, equal unlabored respirations, skin warm/dry/pink. Pt ambulated to restroom. Vital Signs: 17:43 BP 128 / 78; Pulse 116; Resp 18 S; Temp 98.9(O); Pulse Ox 99% on R/A; Weight 64.86 kg ca1 (R); Height 5 ft. 3 in. (160.02 cm) (R); Pain 0/10; 18:30 BP 124 / 82; Pulse 98; Resp 15 S; Pulse Ox 100% on R/A; ca1 19:35 BP 134 / 82; Pulse 95; Resp 15 S; Pulse Ox 100% on R/A; ca1 17:43 Body Mass Index 25.33 (64.86 kg, 160.02 cm) ca1 ED Course: 17:32 Patient arrived in ED. ss 17:35 Jannette Romero, RN is Primary Nurse. ca1 17:47 Triage completed. ca1 17:47 Arm band placed on right wrist. ca1 17:50 Patient has correct armband on for positive identification. Bed in low position. Call ca1 light in reach. Side rails up X2. Seizure precautions initiated. Pulse ox on. NIBP on. Door closed. Noise minimized. Lights dimmed. Warm blanket given. 17:50 No provider procedures requiring assistance completed. ca1 17:56 [facility] Gresh[facility]C [facility]. kb 17:56 Johnathan Sanchez MD is Attending Physician. kb 18:20 Initial lab(s) drawn, by me, sent to lab. Inserted saline lock: 22 gauge in right hand, ca1 using aseptic technique. Blood collected. 20:05 IV discontinued, intact, bleeding controlled, No redness/swelling at site. Pressure ca1 dressing applied. Administered Medications: 18:25 Drug: NS 0.9% 1000 ml Route: IV; Rate: 1000 ml; Site: right hand; ca1 19:36 Follow up: Response: No adverse reaction; IV Status: Completed infusion ca1 18:27 Drug: Zofran (Ondansetron) 4 mg Route: IVP; Site: right hand; ca1 19:36 Follow up: Response: No adverse reaction; Nausea is decreased ca1 18:35 Drug: Keppra 1000 mg Route: IV; Rate: calculated rate; Site: right hand; ca1 18:52 Follow up: Response: No adverse reaction; IV Status: Completed infusion ca1 Outcome: 19:27 Discharge ordered by . kb 20:05 Discharged to home ambulatory. ca1 20:05 Condition: stable 20:05 Discharge instructions given to patient, Instructed on discharge instructions, follow up and referral plans. Demonstrated understanding of instructions, follow-up care. 20:06 Patient left the ED. ca1 Signatures: Opal Gresham, Anyi Henriquez RN RN ss Jannette Romero RN RN ca1 Corrections: (The following items were deleted from the chart) 17:47 17:35 Chief complaint: EMS states: Called for possible seizure. He friend is driving ca1 her from work when she noticed a possible seizure that lasted 5 seconds. Pt has history of seizure with multiple ER visits. Pt is currently taking Keppra for the seizures. Pt is drowsy but easily awaken. ca1
--- NOTE | 2019-12-14 19:27 | EDPHYS ---
Physician Documentation [facility] Name: Heather Hope Age: 29 yrs Sex: Female : 1990 Arrival Date: 12/14/2019 Time: 17:32 Bed 19 Private MD: ED Physician Johanthan Sanchez HPI: 12/13 18:36 This 29 yrs old Female presents to ER via EMS with complaints of seizure. kb 18:36 The patient presents after having a single isolated seizure, that lasted 5 second(s). kb Character of seizure(s): Loss of consciousness: the patient experienced loss of consciousness, Motor activity: generalized, shaking all over, Incontinence: none, Apnea: the patient did not experience apnea. Seizure onset: just prior to arrival. Context: the seizure(s) was witnessed, by a friend, occurred in passenger seat of car, occurred while the patient was sitting, Contributing factors: unknown. Seizure Hx: Original onset: longstanding, Last seizure: The patient's last seizure was approximately 1 month(s) ago. Associated injury: The patient did not suffer any apparent associated injury. EMS care: none. Current symptoms: Currently, the patient is not experiencing any symptoms. The patient has experienced similar episodes in the past, chronically. The patient has not recently seen a physician. 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 Reports fatigue and nausea that is normal for her after a seizure. Has not seen a neurologist in a long time, but has been on keppra. 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 - Social history:: Smoking status: Patient denies any tobacco usage or history of. ROS: 18:35 Constitutional: Negative for fever, chills, and weight loss, Cardiovascular: Negative kb for chest pain, palpitations, and edema, Respiratory: Negative for shortness of breath, cough, wheezing, and pleuritic chest pain, Back: Negative for injury and pain, MS/Extremity: Negative for injury and deformity, Skin: Negative for injury, rash, and discoloration. 18:35 Abdomen/GI: Positive for nausea, Negative for abdominal pain, vomiting, diarrhea. 18:35 Neuro: Positive for seizure activity, Negative for altered mental status, dizziness, gait disturbance, headache, hearing loss, loss of consciousness, numbness, speech changes, syncope, near syncope, tingling, tinnitus, tremor, visual changes, weakness. Exam: 18:35 Constitutional: This is a well developed, well nourished patient who is awake, alert, kb and in no acute distress. Head/Face: Normocephalic, atraumatic. Eyes: Pupils equal round and reactive to light, extra-ocular motions intact. Lids and lashes normal. Conjunctiva and sclera are non-icteric and not injected. Cornea within normal limits. Periorbital areas with no swelling, redness, or edema. Chest/axilla: Normal chest wall appearance and motion. Nontender with no deformity. No lesions are appreciated. Cardiovascular: Regular rate and rhythm with a normal S1 and S2. No gallops, murmurs, or rubs. Normal PMI, no JVD. No pulse deficits. Respiratory: Lungs have equal breath sounds bilaterally, clear to auscultation and percussion. No rales, rhonchi or wheezes noted. No increased work of breathing, no retractions or nasal flaring. Abdomen/GI: Soft, non-tender, with normal bowel sounds. No distension or tympany. No guarding or rebound. No evidence of tenderness throughout. Skin: Warm, dry with normal turgor. Normal color with no rashes, no lesions, and no evidence of cellulitis. MS/ Extremity: Pulses equal, no cyanosis. Neurovascular intact. Full, normal range of motion. Neuro: Awake and alert, GCS 15, oriented to person, place, time, and situation. Cranial nerves II-XII grossly intact. Motor strength 5/5 in all extremities. Sensory grossly intact. Cerebellar exam normal. Normal gait. Vital Signs: 17:43 BP 128 / 78; Pulse 116; Resp 18 S; Temp 98.9(O); Pulse Ox 99% on R/A; Weight 64.86 kg ca1 (R); Height 5 ft. 3 in. (160.02 cm) (R); Pain 0/10; 18:30 BP 124 / 82; Pulse 98; Resp 15 S; Pulse Ox 100% on R/A; ca1 19:35 BP 134 / 82; Pulse 95; Resp 15 S; Pulse Ox 100% on R/A; ca1 17:43 Body Mass Index 25.33 (64.86 kg, 160.02 cm) ca1 MDM: 17:56 Patient medically screened. kb 18:35 Data reviewed: vital signs, nurses notes. Data interpreted: Pulse oximetry: on room air kb is 99 %. Interpretation: normal. 19:26 Counseling: I had a detailed discussion with the patient and/or guardian regarding: the kb historical points, exam findings, and any diagnostic results supporting the discharge/admit diagnosis, lab results, the need for outpatient follow up, a neurologist, to return to the emergency department if symptoms worsen or persist or if there are any questions or concerns that arise at home. 12/13 17:56 Order name: CBC with Diff kb 12/13 17:56 Order name: Basic Metabolic Panel; Complete Time: 18:51 kb 12/13 19:20 Order name: Urine Dipstick--Ancillary (enter results); Complete Time: 19:33 ar5 12/13 19:20 Order name: Urine --Ancillary (enter results); Complete Time: 19:33 ar5 12/13 17:56 Order name: Urine Dipstick-Ancillary (obtain specimen); Complete Time: 19:18 kb 12/13 17:56 Order name: IV Start; Complete Time: 18:42 kb Administered Medications: 18:25 Drug: NS 0.9% 1000 ml Route: IV; Rate: 1000 ml; Site: right hand; ca1 19:36 Follow up: Response: No adverse reaction; IV Status: Completed infusion ca1 18:27 Drug: Zofran (Ondansetron) 4 mg Route: IVP; Site: right hand; ca1 19:36 Follow up: Response: No adverse reaction; Nausea is decreased ca1 18:35 Drug: Keppra 1000 mg Route: IV; Rate: calculated rate; Site: right hand; ca1 18:52 Follow up: Response: No adverse reaction; IV Status: Completed infusion ca1 Disposition: 12/14 05:45 Co-signature as Attending Physician, Johnathan Sanchez MD I agree with the assessment and kdr plan of care. Disposition: 12/14/19 19:27 Discharged to Home. Impression: Epilepsy and recurrent seizures. - Condition is Stable. - Discharge Instructions: Seizure, Adult, [id number]. - Medication Reconciliation Form, Thank You Letter, Antibiotic Education, Prescription Opioid Use form. - Follow up: Emergency Department; When: As needed; Reason: Worsening of condition. Follow up: Private Physician; When: 2 - 3 days; Reason: Recheck today's complaints, Continuance of care, Re-evaluation by your physician. Signatures: Dispatcher [employer] EDOpal Mckenzie, SARAH-C SARAH-Johnathan Ngo MD MD [facility] Jannette Romero RN RN ca1 Corrections: (The following items were deleted from the chart) 12/13 20:06 19:27 12/14/2019 19:27 Discharged to Home. Impression: Epilepsy and recurrent seizures. ca1 Condition is Stable. Forms are Medication Reconciliation Form, Thank You Letter, Antibiotic Education, Prescription Opioid Use. Follow up: Emergency Department; When: As needed; Reason: Worsening of condition. Follow up: Private Physician; When: 2 - 3 days; Reason: Recheck today's complaints, Continuance of care, Re-evaluation by your physician. kb
[2019-12-14 19:28] LABS: Urine Blood NEGATIVE (NEG); Urine Glucose NEGATIVE (NEG); Urine Protein TRACE (NEG); Urine Specific Gravity 1.025 (1.005-1.030); Urine pH 7.5 (5.0-7.0)
--- OUTSIDE RECORDS SUMMARY | 2019-12-14 19:31 | XMS REPORT | Clinical Summary ---
:1990 Author Organization [facility] Address [address] [place] [address] Care Team Providers Name Role Phone Asked, No Pcp Primary Care Provider Unavailable Allergies No Known Allergies Medications Medication Sig Dispensed Refills Start End Date Status Date levETIRAcetam Take 3 tablets 180 tablet 0 12/15/19 Active (KEPPRA) 750 MG (2,250 mg total) 0 20 tablet by mouth 2 (two) times a day for 30 days. B complex-vitamin Take 1 tablet by 30 tablet 0 12/14 Active C-folic acid mouth daily for 0 20 (FOLBEE PLUS 5 30 days. MG) 5 mg tablet per tablet cloBAZam (ONFI) Take 1 tablet 30 tablet 0 12/15/19 Active 10 mg tablet (10 mg total) by 0 20 mouth nightly for 30 days. ferrous sulfate Take 1 tablet 60 tablet 0 12/15/19 Active 325 (65 FE) MG (325 mg total) 0 20 tablet by mouth 2 (two) times a day with meals for 30 days. docusate sodium Take 1 capsule 60 capsule 0 12/15/19 Active (COLACE) 100 MG (100 mg total) 0 20 capsule by mouth 2 (two) times a day as needed for constipation for up to 30 days. levETIRAcetam Take 750 mg by 0 11/15/19 D iscontinued (KEPPRA) 750 MG mouth 2 (two) 20 (Stop Taking at tablet times a day. Dischar ge) Active Problems Problem Noted Date Seizure 11/12/2019 Encounters Date Type Specialty Care Team Description 11/24/2019 Telephone Neurology Richard Henley MD 11/17/2019 Patient Outreach Quality Nola Sevilla RN 11/16/2019 Patient Outreach Quality Nola Sevilla RN 11/12/2019 - Hospital Encounter General Internal Shari Bailey (HCC) 11/15/2019 Medicine MD Adolfo (Primary Dx) Caesar Maxwell MD Adenwala, Yusuf Ebrahim, MD 10/31/2019 Travel 10/24/2019 Travel after 12/13/2018 Social History Tobacco Use Types Packs/Day Years Used Date Never Smoker Smokeless Tobacco: Never Used Alcohol Use Drinks/Week oz/Week Comments Not Currently Sex Assigned at Date Recorded Not on file Job Start Date Occupation Industry Not on file Not on file Not on file Travel History Travel Start Travel End No recent travel history available. Last Filed Vital Signs Vital Sign Reading Time Taken Comments Blood Pressure 114/74 11/15/2019 12:02 PM CDT Pulse 93 11/15/2019 12:02 PM CDT Temperature 36.8 C (98.2 F) 11/15/2019 12:02 PM CDT Respiratory Rate 18 11/15/2019 12:02 PM CDT Oxygen Saturation 97% 11/15/2019 12:02 PM CDT Inhaled Oxygen Concentration - - Weight 69 kg (152 lb 3.2 oz) 11/12/2019 8:45 PM CDT Height 160 cm (5' 3") 11/12/2019 8:45 PM CDT Body Mass Index 26.96 11/12/2019 8:45 PM CDT Plan of Treatment Health Maintenance Due Date Last Done Comments CERVICAL CANCER SCREENING 2010 INFLUENZA VACCINE 01/14/2020 Procedures Procedure Name Priority Date/Time Associated Comments Diagnosis UNMONITORED VIDEO-EEG STAT 11/15/2019 9:41 Re sults for this 36 HRS 1 MIN-50 HRS AM CDT procedur e are in the results section. MANUAL DIFFERENTIAL Routine 11/15/2019 4:30 Resu lts for this AM CDT procedure are i n the results section. CBC WITH PLATELET AND Routine 11/15/2019 4:30 Re sults for this DIFFERENTIAL AM CDT procedure are i n the results section. ESTIMATED GFR Routine 11/15/2019 4:00 Results fo r this AM CDT procedure are i n the results section. BASIC METABOLIC PANEL Routine 11/15/2019 4:00 Re sults for this AM CDT procedure are i n the results section. UNMONITORED VIDEO STAT 11/15/2019 1:22 Result s for this DAILY AM CDT procedure are i n the results section. EEG SETUP STAT 11/14/2019 12:26 Results for this AM CDT procedure are i n the results section. EEG (ROUTINE) STAT 11/13/2019 7:46 Results fo r this AM CDT procedure are i n the results section. MANUAL DIFFERENTIAL Routine 11/13/2019 4:00 Resu lts for this AM CDT procedure are i n the results section. ESTIMATED GFR Routine 11/13/2019 4:00 Results fo r this AM CDT procedure are i n the results section. FERRITIN LEVEL Routine 11/13/2019 4:00 Results f or this AM CDT procedure are i n the results section. TOTAL IRON BINDING Routine 11/13/2019 4:00 Resul ts for this CAPACITY AM CDT procedure are i n the results section. BASIC METABOLIC PANEL Routine 11/13/2019 4:00 Re sults for this AM CDT procedure are i n the results section. CBC WITH PLATELET AND Routine 11/13/2019 4:00 Re sults for this DIFFERENTIAL AM CDT procedure are i n the results section. MRI BRAIN W WO Routine 11/13/2019 2:16 Results f or this CONTRAST AM CDT procedure are i n the results section. CONSULT TO OSTOMY CARE Routine 11/12/2019 11:40 NURSE PM CDT ECG 12-LEAD Routine 11/12/2019 9:10 Results for this PM CDT procedure are i n the results section. MARCELINO TITER Routine 11/12/2019 7:40 Results for this PM CDT procedure are i n the results section. PROLACTIN LEVEL Routine 11/12/2019 7:40 Results for this PM CDT procedure are i n the results section. CREATINE KINASE, TOTAL Routine 11/12/2019 7:40 R esults for this (CPK) PM CDT procedure are i n the results section. VITAMIN D 25 HYDROXY Routine 11/12/2019 7:40 Res ults for this LEVEL PM CDT procedure are i n the results section. HIV AG/AB COMBINATION Routine 11/12/2019 7:40 Re sults for this PM CDT procedure are i n the results section. SYPHILIS TOTAL Routine 11/12/2019 7:40 Results f or this ANTIBODY PM CDT procedure are i n the results section. T4, FREE Routine 11/12/2019 7:40 Results for this PM CDT procedure are i n the results section. THYROID STIMULATING Routine 11/12/2019 7:40 Resu lts for this HORMONE PM CDT procedure are i n the results section. RHEUMATOID FACTOR Routine 11/12/2019 7:40 Result s for this PM CDT procedure are i n the results section. SEDIMENTATION RATE Routine 11/12/2019 7:40 Resul ts for this PM CDT procedure are i n the results section. CORTISOL LEVEL, RANDOM Routine 11/12/2019 7:40 R esults for this PM CDT procedure are i n the results section. HOMOCYSTINE, PLASMA Routine 11/12/2019 7:40 Resu lts for this PM CDT procedure are i n the results section. C-REACTIVE PROTEIN Routine 11/12/2019 7:40 Resul ts for this PM CDT procedure are i n the results section. VITAMIN B12 LEVEL Routine 11/12/2019 7:40 Result s for this PM CDT procedure are i n the results section. FOLATE LEVEL Routine 11/12/2019 7:40 Results for this PM CDT procedure are i n the results section. MARCELINO Routine 11/12/2019 7:40 Results for this PM CDT procedure are i n the results section. CT CERVICAL SPINE WO STAT 11/12/2019 6:12 Res ults for this CONTRAST PM CDT procedure are i n the results section. CT MAXILLOFACIAL WO STAT 11/12/2019 6:09 Resu lts for this CONTRAST PM CDT procedure are i n the results section. CT HEAD WO CONTRAST STAT 11/12/2019 6:09 Resu lts for this PM CDT procedure are i n the results section. XR CHEST 1 VW PORTABLE STAT 11/12/2019 5:35 R esults for this PM CDT procedure are i n the results section. ESTIMATED GFR STAT 11/12/2019 5:04 Results fo r this PM CDT procedure are i n the results section. KEPPRA (LEVETIRACETAM) STAT 11/12/2019 5:04 R esults for this LEVEL PM CDT procedure are i n the results section. ALCOHOL LEVEL, BLOOD STAT 11/12/2019 5:04 Res ults for this PM CDT procedure are i n the results section. COMPREHENSIVE STAT 11/12/2019 5:04 Results fo r this METABOLIC PANEL PM CDT procedure ar e in the results section. HC COMPLETE BLD COUNT STAT 11/12/2019 5:04 Re sults for this W/AUTO DIFF PM CDT procedure are i n the results section. URINE DRUGS OF ABUSE STAT 11/12/2019 2:44 Res ults for this SCREEN PM CDT procedure are i n the results section. HCG QUALITATIVE, URINE Routine 11/12/2019 2:44 R esults for this SCREEN PM CDT procedure are i n the results section. URINALYSIS SCREEN AND Routine 11/12/2019 2:44 Re sults for this MICROSCOPY, WITH PM CDT procedure a re in REFLEX TO CULTURE the result s section. URINE CULTURE Routine 11/12/2019 2:44 Results fo r this PM CDT procedure are i n the results section. after 12/13/2018 Results Continuous EEG monitoring (11/15/2019 9:41 AM CDT) Narrative Performed At This result has an attachment that is no t available. CONTINUOUS VIDEO-EEG MONITORING REPORT Patient Name: Heather Hope Date of : 1990 Gender: female Initial Study Start Date: 11/13/2019 Initial Study Start Time: 5:07 Current Study Start Date: 11/15/2019 Current Study Start Time: 00:00 Current Study End Date: 11/15/2019 Current Study End Time: 7:33 Indication Seizures Technical Summary Technique:Modified international 10/20 system of EEG e lectrode placement was used. Visual Analysis of EEG-Video Monitoring:This electroen cephalogram was recorded simultaneously with video throughout the sonya toring. The EEG was visually inspected and analyzed for characterization o f the background activity in all awake and sleep states, abnormal focal and generalized features, and intraictal and ictal epileptiform activi ty. Electrical seizure activity was correlated with the patients clin ical activity recorded on video and video captured clinical events w ere correlated with simultaneously recorded EEG activity. Computer Analysis of EEG Waveforms:The EEG underwent c ontinuous computerized digital spectral analysis, which consiste d of real time detection of electrical events that could be considere d epileptiform. All electrographic events identified by the detection prog cass were visually inspected in order to assess the waveform characterist ics and significance of these electrographic events. All intraictal and ict al epileptiform events are described further below with additional det ails of the visual analysis of the EEG. Events detected by computer riky sis that were not determined by visual analysis to be epileptiform were considered to be myogenic, biologic, mechanical, or electrical artifact in origin. Only computer detected events that have been verified by vi sual inspection to be interictal or ictal epileptiform discharges are rep orted below and considered in the final report of this monitoring stud y. Findings Awake Recordings:The occipital dominant rhythm is 8- 9 Hz.2-3 Hz activity was present in all regions. 18-22 Hz activity was pres ent in all regions.Intermittent 3-4 Hz activity with sharp wave s were recorded in the right frontal central temporal greater than left f rontal cental temporal regions. Sleep Recording:Intermittent 3-4 Hz activity with sharp waves were recorded in the right frontal central temporal greater than left frontal central temporal regions. Hyperventilation: Was not performed. Photic Stimulation: Was not performed. Impression:The background activity is mildly diffuse ly slow which is consistent with a diffuse disturbance in brain functio n with focal potentially epileptogenic lesions in the right and lef t frontal central temporal regions independently. No seizures occurred. ICD-10 Code: R56.9 Manual differential (11/15/2019 4:30 AM CDT)Only the most recent of2 results within the time period is included. Manual differential PERFORMED [facility] Neutrophils 51.0 39.0 - 69.0 % [facility] Lymphocytes 34.0 25.0 - 45.0 % [facility] Monocytes 13.0 (H) 0.0 - 10.0 % [facility] Eosinophils 2.0 0.0 - 5.0 % [facility] Basophils 0.0 0.0 - 1.0 % [facility] Metamyelocytes 0 % [facility] Promyelocytes 0 % [facility] Platelet slide review Sana adequate [facility] Anisocytosis Moderate [facility] Ovalocytes Moderate [facility] Enlarged platelets Moderate (A) [facility] Specimen Performing Organization Address City/State/Zipcode Phone Number [facility] DEPARTMENT OF PATHOLOGY AND [address], [place] [phone] GENOMIC MEDICINE [facility] [address] [place] [address] CBC with platelet and differential (11/15/2019 4:30 AM CDT)Only the most recent of3 resultswithin the time period is included. Pathologist Sig nature WBC 7.99 4.50 - 11.00 k/uL [facility] RBC 4.06 (L) 4.20 - 5.50 m/uL [facility] HGB 10.8 (L) 12.0 - 16.0 g/dL [facility] HCT 34.1 (L) 37.0 - 47.0 % [facility] MCV 84.0 82.0 - 100.0 fL [facility] MCH 26.6 (L) 27.0 - 34.0 pg [facility] MCHC 31.7 31.0 - 37.0 g/dL [facility] RDW - SD 48.1 37.0 - 55.0 fL [facility] MPV 10.2 8.8 - 13.2 fL [facility] Platelet count 251 150 - 400 k/uL [facility] Nucleated RBC 0.00 /100 WBC [facility] Neutrophils 51.0 39.0 - 69.0 % [facility] Lymphocytes 34.0 25.0 - 45.0 % [facility] Monocytes 13.0 (H) 0.0 - 10.0 % [facility] Eosinophils 2.0 0.0 - 5.0 % [facility] Basophils 0.0 0.0 - 1.0 % [facility] Specimen Blood Performing Organization Address City/State/Zipcode Phone Number [facility] DEPARTMENT OF PATHOLOGY AND [address] [place] [phone] GENOMIC MEDICINE [address] [address] Estimated GFR (11/15/2019 4:00 AM CDT)Only the most recent of3 resultswithin the time period is included. Estimated GFR >=90 mL/min/1.73 [facility] Comment: m2 HOSPITAL Catergory Units Interpretation G1 >=90 Normal or high G2 60-89 Mildly decreased G3a 45-59 Mildly to moderately decreas ed G3b 30-44 Moderately to severely decre ased G4 15-29 Severely decreased G5 <15 Kidney failure The eGFR was calculated using the Chronic Kidney Disea se Epidemiology Collaboration (CKD-EPI) equation. Interpretation is based on recommendations of the National Kidney Foundation-Kidney Disease Outcomes Neel lity Initiative (NKF-KDOQI) published in 2014. Specimen Performing Organization Address City/State/Zipcode Phone Number [facility] DEPARTMENT OF PATHOLOGY AND [address] [place] [address] [phone] [address] Basic metabolic panel (11/15/2019 4:00 AM CDT)Only the most recent of2 results within the time period is included. Pathologist Sig nature Sodium 135 135 - 148 mEq/L [facility] Potassium 3.4 (L) 3.5 - 5.0 mEq/L [facility] Chloride 103 98 - 112 mEq/L [facility] CO2 21 (L) 24 - 31 mEq/L [facility] Anion gap 11@ANIO 7 - 15 mEq/L [facility] BUN 9 6 - 20 mg/dL [facility] Creatinine 0.48 (L) 0.50 - 0.90 mg/dL [facility] Glucose 95 65 - 99 mg/dL [facility] Calcium 9.2 8.3 - 10.2 mg/dL [facility] Specimen Blood Performing Organization Address City/State/Zipcode Phone Number [facility] DEPARTMENT OF PATHOLOGY AND [address] [place] [phone] Continuous EEG monitoring (11/15/2019 1:22 AM CDT) Narrative Performed At This result has an attachment that is no t available. CONTINUOUS VIDEO-EEG MONITORING REPORT Patient Name: Heather Hope Date of : 1990 Gender: female Initial Study Start Date: 11/13/2019 Initial Study Start Time: 5:07 Current Study Start Date: 11/14/2019 Current Study Start Time: 00:00 Current Study End Date: 11/14/2019 Current Study End Time: 23:59 Indication Seizures Technical Summary Technique:Modified international 10/20 system of EEG e lectrode placement was used. Visual Analysis of EEG-Video Monitoring:This electroen cephalogram was recorded simultaneously with video throughout the toring. The EEG was visually inspected and analyzed for characterization o f the background activity in all awake and sleep states, abnormal focal and generalized features, and intraictal and ictal epileptiform activi ty. Electrical seizure activity was correlated with the patients clin ical activity recorded on video and video captured clinical events w ere correlated with simultaneously recorded EEG activity. Computer Analysis of EEG Waveforms:The EEG underwent c ontinuous computerized digital spectral analysis, which consiste d of real time detection of electrical events that could be considere d epileptiform. All electrographic events identified by the detection prog cass were visually inspected in order to assess the waveform characterist ics and significance of these electrographic events. All intraictal and ict al epileptiform events are described further below with additional det ails of the visual analysis of the EEG. Events detected by computer riky sis that were not determined by visual analysis to be epileptiform were considered to be myogenic, biologic, mechanical, or electrical artifact in origin. Only computer detected events that have been verified by vi sual inspection to be interictal or ictal epileptiform discharges are rep orted below and considered in the final report of this monitoring stud y. Findings Awake Recordings:The occipital dominant rhythm is 8- 9 Hz.2-3 Hz activity was present in all regions. 18-22 Hz activity was pres ent in all regions.Intermittent 3-4 Hz activity with sharp wave s were recorded in the right frontal central temporal greater than left f rontal cental temporal regions. Sleep Recording:Intermittent 3-4 Hz activity with sharp waves were recorded in the right frontal central temporal greater than left frontal central temporal regions. Hyperventilation: Was not performed. Photic Stimulation: Was not performed. Impression:The background activity is mildly diffuse ly slow which is consistent with a diffuse disturbance in brain functio n with focal potentially epileptogenic lesions in the right and lef t frontal central temporal regions independently. No seizures occurred. ICD-10 Code: R56.9 Continuous EEG monitoring (11/14/2019 12:26 AM CDT) Narrative Performed At This result has an attachment that is no t available. CONTINUOUS VIDEO-EEG MONITORING REPORT Patient Name: Heather Hope Date of : 1990 Gender: female Initial Study Start Date: 11/13/2019 Initial Study Start Time: 5:07 Current Study Start Date: 11/13/2019 Current Study Start Time: 5:07 Current Study End Date: 11/13/2019 Current Study End Time: 23:59 Indication Seizures Technical Summary Technique:Modified international 10/20 system of EEG e lectrode placement was used. Visual Analysis of EEG-Video Monitoring:This electroen cephalogram was recorded simultaneously with video throughout the sonya toring. The EEG was visually inspected and analyzed for characterization o f the background activity in all awake and sleep states, abnormal focal and generalized features, and intraictal and ictal epileptiform activi ty. Electrical seizure activity was correlated with the patients clin ical activity recorded on video and video captured clinical events w ere correlated with simultaneously recorded EEG activity. Computer Analysis of EEG Waveforms:The EEG underwent c ontinuous computerized digital spectral analysis, which consiste d of real time detection of electrical events that could be considere d epileptiform. All electrographic events identified by the detection prog cass were visually inspected in order to assess the waveform characterist ics and significance of these electrographic events. All intraictal and ict al epileptiform events are described further below with additional det ails of the visual analysis of the EEG. Events detected by computer riky sis that were not determined by visual analysis to be epileptiform were considered to be myogenic, biologic, mechanical, or electrical artifact in origin. Only computer detected events that have been verified by vi sual inspection to be interictal or ictal epileptiform discharges are rep orted below and considered in the final report of this monitoring stud y. Findings Awake Recordings: The occipital dominant rhythm is 6-7 Hz. 2-3 Hz activity was present in all regions. 18-22 Hz activity was pres ent in all regions. Intermittent 3-4 Hz activity with sharp waves were rec orded in the right frontal central temporal greater than left frontal [place] temporal regions. Sleep Recording: Intermittent 3-4 Hz activity with s harp waves were recorded in the right frontal central temporal greater than left frontal central temporal regions. Hyperventilation: Was not performed. Photic Stimulation: Was not performed. Impression: The background activity is diffusely slow which is consistent with a diffuse disturbance in brain function with foca l potentially epileptogenic lesions in the right and left frontal ce ntral temporal regions independently. No seizures occurred. ICD-10 Code: R56.9 EEG (routine) - Baseline EEG (11/13/2019 7:46 AM CDT) Narrative Performed At This result has an attachment that is no t available. EEG RECORDING AWAKE & ASLEEP - Baseline for Bedside Date of Service:11/13/19 Awake Recordings: The occipital dominant rhythm is 6-7 Hz. 2-3 Hz activity was present in all regions. 18-22 Hz activity was pres ent in all regions. Intermittent 3-4 Hz activity with sharp waves were rec orded in the right frontal temporal greater than left frontal temporal re gions. Sleep Recording: Intermittent 3-4 Hz activity with s harp waves were recorded in the right frontal temporal greater than le ft frontal temporal regions. Hyperventilation: Was not performed. Photic Stimulation: Was not performed. Impression: The background activity is diffusely slow which is consistent with a diffuse disturbance in brain function with foca l potentially epileptogenic lesions in the right and left frontal te mporal regions independently. No seizures occurred. ICD-10 Code: R56.9 Romain Bailey MD Fellow, Clinical Neurophysiology I reviewed the entire EEG and agree with the above fin dings. Richard Henley MD Total iron binding capacity (11/13/2019 4:00 AM CDT) Pathologist [facility] nature Iron level 20 (L) 37 - 145 ug/dL [facility] Iron binding capacity 335 200 - 400 ug/dL [facility] % Saturation 6.0 (L) 15.0 - 38.0 % [facility] Specimen Blood Performing Organization Address City/[facility] Phone Number [facility] DEPARTMENT OF PATHOLOGY AND [address] [place], [place] [phone] Ferritin level (11/13/2019 4:00 AM CDT) Pathologist Sig [facility] Ferritin level <13 (A) 13 - 150 ng/mL [facility] Specimen Blood Performing Organization Address City/[facility] Phone Number [facility] DEPARTMENT OF PATHOLOGY AND [address] [place] [phone] MRI Brain W Wo Contrast (11/13/2019 2:16 AM CDT) Specimen Narrative Performed At This result has an attachment that is no t available. EXAMINATION: MRI BRAIN W WO CONTRAST RADIANT CLINICAL HISTORY: Seizure protocol COMPARISON: Head CT on 11/12/2019 TECHNIQUE: Brain MRI without and with in travenous gadolinium contrast, seizure protocol, including high resolution 3D T1 DOWD, coronal oblique T2 FSE and T2 FLAIR, and 3D pCASL with PLD of 1.5 seconds. FINDINGS: The study is somewhat limited by patient motion, particularly on high-resolution coronal 3D T1 DOWD, T2 FSE, and T2 FLAIR images. Accounting for this limitation, the brain appears normal in signal and configuration with no evidence of acute infarction, hemorrhage, mass lesion, or abnormal enhancement. Hippocampi are symmetric and within norm al limits in signal and configuration with no evidence of mesial temporal sclerosis. No evidence of edmondson matter heterotopia or cortical dysplasia. Cerebral perfusion is unremarkable with no interictal hypoperfusion or cuco- ictal hyperperfusion identified. Ventricles, sulci, and cisterns are norm al in size and configuration. No extra- axial fluid collection. Flow voids of the major intracranial vessels are intact. Visualized paranasal sinuses and mastoid air cells are clear. Bones, orbits, and soft tissues are unremarkable. IMPRESSION: 1. Unremarkable brain MRI with no struct ural abnormality identified to explain patient's seizures. 2. Cerebral perfusion within normal limi ts with no regional interictal hypoperfusion or cuco-ictal hyperperfusion to localize seizure focus. [facility]-[id number] Procedure Note [facility], Radiology Results - 11/13/2019 6:14 AM CDT EXAMINATION: MRI BRAIN W WO CONTRAST CLINICAL HISTORY: Seizure protocol COMPARISON: Head CT on 11/12/2019 TECHNIQUE: Brain MRI without and with in travenous gadolinium contrast, seizure protocol, including high resolution 3D T1 DOWD, coronal oblique T2 FSE and T2 FLAIR, and 3D pCASL with PLD of 1.5 seconds. FINDINGS: The study is somewhat limited by patient motion, particularly on high-resolution coronal 3D T1 DOWD, T2 FSE, and T2 FLAIR images. Accounting for this limitation, the brain appears normal in signal and configuration with no evidence of acute infarction, hemorrhage, mass lesion, or abnormal enh ancement. Hippocampi are symmetric and within norm al limits in signal and configuration with no evidence of mesial temporal sclerosis. No evidence of edmondson matter heterotopia or cortical dysplasia. Cerebral perfusion is unremarkable with no interictal hypoperfusion or cuco- ictal hyperperfusion identified. Ventricles, sulci, and cisterns are norm al in size and configuration. No extra- axial fluid collection. Flow voids of the major intracranial vessels are intact. Visualized paranasal sinuses and mastoid air cells are clear. Bones, orbits, and soft tissues are unremarkable. IMPRESSION: 1. Unremarkable brain MRI with no struct ural abnormality identified to explain patient's seizures. 2. Cerebral perfusion within normal limi ts with no regional interictal hypoperfusion or cuco-ictal hyperperfusion to localize seizure focus. [facility]-[id number] Performing Organization Address City/State/Zipcode Phone Number [facility] [address] [place] [address] ECG 12 lead (11/12/2019 9:10 PM CDT) Pathologist Sig nature Ventricular rate 81 [facility] Atrial rate 81 [facility] DE interval 164 [facility] QRSD interval 84 [facility] QT interval 386 [facility] QTC interval 448 [facility] MUSE P axis 1 52 [facility] MUSE QRS axis 1 4 [facility] MUSE T wave axis 13 [facility] MUSE EKG impression Normal sinus [facility] MUSE rhythm-Normal ECG-No previous ECGs available-Electronicall y Signed By Adrian Ibarra MD ([id number]) on 11/13/2019 8:07:25 PM Specimen Narrative Performed At This result has an attachment that is no t available. Performing Organization Address [facility] Phone Number [facility] MUSE [address] [place] [phone] Syphilis total antibody (11/12/2019 7:40 PM CDT) Pathologist [facility] Syphilis total Non-reactiveComment Non-reactive [facility] antibody : No serological HOSPITAL evidence of syphilis infection. Specimen Serum Performing Organization Address [facility] Phone Number [facility] DEPARTMENT OF PATHOLOGY AND [address] [place] [address] [phone] [address] HIV Ag/Ab combination (11/12/2019 7:40 PM CDT) Pathologist [facility] HIV Ag/Ab combination Non-reactive Non-reactive [facility] Specimen Blood Performing Organization Address [facility] Phone Number [facility] DEPARTMENT OF PATHOLOGY AND [address] [place] [address] [phone] [address] Homocystine, plasma (11/12/2019 7:40 PM CDT) Pathologist [facility] Homocysteine 10.3 0.0 - 15.0 [facility] Comment: umol/L HOSPITAL The risk for coronary vascular disease increases progr essively with homocysteine concentration. A 3.4 times greater risk is associated with a homocysteine concentration of greate r than 15.8 umol/L as compared to a concentration below 14.1 umol/L. Specimen Blood Performing Organization Address City/[facility]/Zipcode Phone Number [facility] DEPARTMENT OF PATHOLOGY AND [address] [place] [address] [phone] [address] MARCELINO titer (11/12/2019 7:40 PM CDT) Pathologist Sig nature MARCELINO titer 1:160 (A) Not-Detected [facility] MARCELINO pattern Homogeneous (A) Not-Detected [facility] Specimen Blood Performing Organization Address City/[facility]/Zipcode Phone Number [facility] DEPARTMENT OF PATHOLOGY AND [address] [place] [address] [phone] [address] Vitamin D 25 hydroxy level (11/12/2019 7:40 PM CDT) Vitamin D, 13.6 (L) 30.0 - 150.0 [facility] 25-hydroxy Comment: ng/mL HOSPITAL This assay reports the sum of 25-hydroxy vitamin D3 an d 25-hydroxy vitamin D2. Reference range: 0-17 years: Deficiency: less than 20ng/mL Optimum level: greater than or equal to 20 ng/mL. 18 years and older: Deficiency: less than 20ng/mL Insufficiency: 20-29 ng/mL Optimum Level: 30-80 ng/mL The assay reportable range is 3.4 155.9 ng/mL. Level s higher than 150 ng/mL may be associated with toxicity. If toxicity is clinically suspected and the reported r esult is >155.9 ng/mL,contact lab for alternative methods to obtain a definitive level. If separate quantitation of 25-hydroxy vitamin D3 and 25-hydroxy vitamin D2 is needed, please contact lab for alternative methods. Specimen Blood Performing Organization Address City/State/Zipcode Phone Number [facility] DEPARTMENT OF PATHOLOGY AND [address] [place] [address] [phone] [address] Prolactin level (11/12/2019 7:40 PM CDT) Pathologist Sig nature Prolactin 22 5 - 23 ng/mL [facility] Specimen Performing Organization Address City/State/Zipcode Phone Number [facility] DEPARTMENT OF PATHOLOGY AND [address] [place] [address] [phone] [address] Sedimentation rate (11/12/2019 7:40 PM CDT) Pathologist Sig [facility] Sedimentation rate 9 0 - 20 mm/hr [facility] Specimen Blood Performing Organization Address City/[facility] Cent[facility]ode Phone Number [facility] DEPARTMENT OF PATHOLOGY AND [address] [place] [address] [place] [phone] Rheumatoid factor (11/12/2019 7:40 PM CDT) Pathologist [facility] Rheumatoid factor <10 0 - 13 IU/mL [facility] Specimen Blood Performing Organization Address [facility] Centercode Phone Number [facility] DEPARTMENT OF PATHOLOGY AND [address] [place] [address] [place] [phone] C-reactive protein (11/12/2019 7:40 PM CDT) Pathologist [facility] CRP <0.30 0.00 - 0.50 mg/dL [facility] Specimen Blood Performing Organization Address [facility] Phone Number [facility] DEPARTMENT OF PATHOLOGY AND [address] [place] [phone] MARCELINO (11/12/2019 7:40 PM CDT) MARCELINO screen Positive (A) Negative [facility] Comment: HOSPITAL Test performed using NOVA Lite DAPI MARCELINO kit (Indirect Immunofluorescence Assay) for Anti-Nuclear Antibody on InterseA-Lyser 160 Analyzer. Specimen Blood Performing Organization Address [facility] Phone Number [facility] DEPARTMENT OF PATHOLOGY AND [address] [place] [address] Thyroid stimulating hormone (11/12/2019 7:40 PM CDT) Pathologist Sig [facility] TSH 2.21 0.27 - 4.20 uIU/mL [facility] Specimen Blood Performing Organization Address [facility] Phone Number [facility] DEPARTMENT OF PATHOLOGY AND [address] [place] [address] [place] [address] T4, free (11/12/2019 7:40 PM CDT) Pathologist [facility] T4, free 1.2 0.9 - 1.7 ng/dL [facility] Specimen Blood Performing Organization Address City/[facility] Centercode Phone Number [facility] DEPARTMENT OF PATHOLOGY AND [address] [place] [address] [phone] [address] Folate level (11/12/2019 7:40 PM CDT) Pathologist Sig [facility] Folate 9.3 4.8 - 24.2 ng/mL [facility] Specimen Serum Performing Organization Address [facility] Centercode Phone Number [facility] DEPARTMENT OF PATHOLOGY AND [address] [place] [address] [phone] [address] Vitamin B12 level (11/12/2019 7:40 PM CDT) [facility] Vitamin B12 [phone] 946 [facility] Comment: pg/mL HOSPITAL Significant overlap exists between normal and deficien cy states. However, most patients with deficiencies will have Ser um B12 <200 pg/mL. Specimen Serum Performing Organization Address [facility] Phone Number [facility] DEPARTMENT OF PATHOLOGY AND [address] [place] [address] [phone] [address] Creatine kinase, total (CPK) (11/12/2019 7:40 PM CDT) Pathologist [facility] Creatine kinase 56 26 - 192 U/L [facility] Specimen Performing Organization Address [facility] Centercode Phone Number [facility] DEPARTMENT OF PATHOLOGY AND [address] [place] [address] [phone] [address] Cortisol level, random (11/12/2019 7:40 PM CDT) Pathologist [facility] Cortisol, random 2 ug/dL [facility] Comment: HOSPITAL Reference Ranges are not established for non-timed Cor tisol levels. Reference Range for Timed Cortisol: 6 - 10 AM 6 - 18 ug/d l 4 - 8 PM 3 - 11 ug/ dl Specimen Blood Performing Organization Address [facility] Centercode Phone Number [facility] DEPARTMENT OF PATHOLOGY AND [address] [place] [address] [phone] [address] [address] Cervical Spine Wo Contrast (11/12/2019 6:12 PM CDT) Specimen Narrative Performed At EXAMINATION: CT CERVICAL SPINE WO CONTRA ST [facility] CLINICAL HISTORY: fall COMPARISON: None TECHNIQUE: Axial noncontrast enhanced images of the ce rvical spine were obtained with coronal and sagittal reconstructed algor ithms. CT imaging was performed with iterative reconstruction technique and/or automated exposure control to reduce radiation dose. FINDINGS: There is straightening of the normal cervical lordosis which may be positional in nature. There is grade 1 anterolisthesis of C4 on C5 by 0.4 cm. The vertebral body heights are maintained. No acute fracture or subluxation is identified in the cervica l spine. The bony spinal canal of the cervical spine is patent. No high-grade bony neural foraminal narrowing is ident ified in the cervical spine. The visualized mastoid air cells are clear bilaterally . The occipital condyles are intact. The included lung apices are clear bilat erally. IMPRESSION: No acute fracture or subluxation identif ied in the cervical spine. [facility]-[id number] Procedure Note Interface, Radiology Results Incoming - 11/12/2019 6:20 PM CDT EXAMINATION: CT CERVICAL SPINE WO CONTRAST CLINICAL HISTORY: fall COMPARISON: None TECHNIQUE: Axial noncontrast enhanced im ages of the cervical spine were obtained with coronal and sagittal reconstructed algorithms. CT imaging was performed with iterative reconstruction technique and/or automated exposure control to reduce radiation dose. FINDINGS: There is straightening of the normal cer vical lordosis which may be positional in nature. There is grade 1 anterolisthesis of C4 on C5 by 0.4 cm. The vertebral body heights are maintained. No acute fracture or subluxation is identified in the cervica l spine. The bony spinal canal of the cervical sp ine is patent. No high-grade bony neural foraminal narrowing is identified in the cervical spine. The visualized mastoid air cells are jaret ar bilaterally. The occipital condyles are intact. The included lung apices are clear bilat erally. IMPRESSION: No acute fracture or subluxation identif ied in the cervical spine. [facility]-[id number] Performing Organization Address City/State/Zipcode Phone Number [facility] [address] [place] [address] CT Maxillofacial Wo Contrast (11/12/2019 6:09 PM CDT) Specimen Narrative Performed At EXAMINATION: CT MAXILLOFACIAL WO CONTRAS T [facility] CLINICAL HISTORY: Facial trauma fx sofy pected COMPARISON: None TECHNIQUE: Axial noncontrast enhanced images through the maxillofacial bones were obtained with bone and soft tissue algorith ms. Coronal and sagittal reconstructions were also perfo rmed. CT imaging was performed with iterative reconstruction techniques and/or automated exposure control to reduce rad iation dose. IMPRESSION: There is soft tissue swelling over the l eft zygoma and left maxilla. No fractures identified. Postseptal orbital soft tissues are unre markable. The paranasal sinuses are clear. [facility]-[id number] Procedure Note Interface, Radiology Results Incoming - 11/12/2019 6:18 PM CDT EXAMINATION: CT MAXILLOFACIAL WO CONTRAST CLINICAL HISTORY: Facial trauma fx susp ected COMPARISON: None TECHNIQUE: Axial noncontrast enhanced i mages through the maxillofacial bones were obtained with bone and soft tissue algorithms. Coronal and sagittal reconstructions were also performed. CT imaging was performed with iterative reconstruction techniques and/or automated exposure control to reduce radiation dose. IMPRESSION: There is soft tissue swelling over the l eft zygoma and left maxilla. No fractures identified. Postseptal orbital soft tissues are unre markable. The paranasal sinuses are clear. [facility]-[id number] Performing Organization Address City/State/Zipcode Phone Number [facility] [address] [place] [address] CT Head Wo Contrast (11/12/2019 6:09 PM CDT) Specimen Narrative Performed At EXAMINATION: CT HEAD WO CONTRAST [facility] CLINICAL HISTORY: Seizure new nontra umatic 18-40 yrs COMPARISON: None TECHNIQUE: Noncontrast CT of the brain was performed f rom the skull base to the vertex. Both soft tissue and bone reconstructio n algorithms are interpreted. CT imaging was performed with iterative reconstruction techniques and/or automated exposure control to reduce rad iation dose. FINDINGS: No intracranial hemorrhage, extra-axial collection, or mass-effect is seen. No acute cortical infarct is identified. No hy perdense vessel is seen. No air-fluid level is seen in the visualized portions of the paranasal sinuses. Mastoid air cells are clear. IMPRESSION: No acute intracranial abnormality identi fied. [facility]-[id number] Procedure Note Interface, Radiology Results Incoming - 11/12/2019 6:14 PM CDT EXAMINATION: CT HEAD WO CONTRAST CLINICAL HISTORY: Seizure new nontraum atic 18-40 yrs COMPARISON: None TECHNIQUE: Noncontrast CT of the brain w as performed from the skull base to the vertex. Both soft tissue and bone reconstruction algorithms are interpreted. CT imaging was performed with iterative reconstruction techniques and/or automated exposure control to reduce radiation dose. FINDINGS: No intracranial hemorrhage, extra-axial collection, or mass-effect is seen. No acute cortical infarct is identified. No hyperdense vessel is seen. No air-fluid level is seen in the visual ized portions of the paranasal sinuses. Mastoid air cells are clear. IMPRESSION: No acute intracranial abnormality identi fied. [id number] Performing Organization Address [facility] Phone Number [facility] [address] [place] [address] XR Chest 1 Vw Portable (11/12/2019 5:35 PM CDT) Specimen Narrative Performed At EXAMINATION: XR CHEST 1 [facility]W [facility]ABLE [facility] CL[facility]ICAL [facility]: SOB XR CHEST 1 VW PORTABLE images are subm itted COMPARISON: NONE FINDINGS: The cardiac silhouette is normal in size. The pulmonar y vasculature is within normal limits. The lung zones have no focal are a of consolidation. There is no pleural effus ion or pneumothorax. IMPRESSION: 1. There is no acute cardiopulmonary dis ease. [id number] Procedure Note Hm Interface, Radiology Results Incoming - 11/12/2019 5:40 PM CDT EXAMINATION: XR CHEST 1 VW PORTABLE CLINICAL HISTORY: SOB XR CHEST 1 VW PORTABLE images are submi tted COMPARISON: NONE FINDINGS: The cardiac silhouette is normal in size . The pulmonary vasculature is within normal limits. The lung zones have no focal area of consolidation. There is no pleural effusion or pneumothorax. IMPRESSION: 1. There is no acute cardiopulmonary dis ease. [id number] Performing Organization Address [facility] Phone Number [facility] [address] [place] [address] Keppra (Levetiracetam) level (11/12/2019 5:04 PM CDT) Levetiracetam 30 12 - 46 ug/mL [facility] Comment: INTERPRETIVE INFORMATION: Keppra (Levetiracetam) Therapeutic Range: 12-46 ug/mL Toxic: Not well Established Pharmacokinetics of levetiracetam are affected by lamberto l function. Adverse effects may include somnolence, weakness, head ache and vomiting. This levetiracetam (Keppra) immunoassay uses the [employer] reagents, which has known cross-reactivity with the dr norma collinsracetam (Briviact) and may report inaccurate resu lts. Patients transitioning from levetiracetam to brivarace goldstein or those who are using both medications should not monitor drug concentrations with the [employer] assay. These p atients should be monitored using a validated chromatographic methodology that distinguishes between drugs to determine drug con centrations. Performed by [facility], [address] [place] [address] [id number] [email or web address], Josué Barreto MD, Lab. Director Specimen Serum Performing Organization Address [facility]/Zipcode Phone Number [facility] [address] [place] [address] [facility] [address] [place] [address] Alcohol level, blood (11/12/2019 5:04 PM CDT) Alcohol None Detected mg/dL [facility] Comment: HOSPITAL Normal None Detected Legal Intoxication in [place] 80 mg/dL (0.08%) - Whole Blood Toxic Concentration 200 mg/dL (0.2%) Potentially Fatal 350 - 500 mg/dL (0. 35 - 0.5%) Alcohol percent None Detected % [facility] Specimen Blood Performing Organization Address City/[facility]/Zipcode Phone Number [facility] DEPARTMENT OF PATHOLOGY AND [address] [place] [phone] GENOMIC MEDICINE [address] [address] Comprehensive metabolic panel (11/12/2019 5:04 PM CDT) Sodium 142 135 - 148 [facility] mEq/L [facility] Potassium 3.7 3.5 - 5.0 [facility] mEq/L [facility] Chloride 106 98 - 112 [facility] mEq/L [facility] CO2 22 (L) 24 - 31 mEq/L [facility] Anion gap 14@ANIO 7 - 15 mEq/L [facility] BUN 4 (L) 6 - 20 mg/dL [facility] Creatinine 0.60 0.50 - 0.90 [facility] mg/dL HOSPITAL Glucose 98 65 - 99 mg/dL [facility] Calcium 9.4 8.3 - 10.2 [facility] mg/dL HOSPITAL Protein 7.2 6.3 - 8.3 [facility] Comment: g/dL [facility] - [place] 4.6-7.0 g/dL 1 week 4.4-7.6 g/dL 7 months-1year 5.1-7.3 g/dL 1-2 years 5.6-7.5 g/dL >3 years 6.0-8.0 g/dL 18-150 6.3-8.3 g/dL Albumin 3.7 3.5 - 5.0 [facility] g/dL HOSPITAL A/G ratio 1.1 0.7 - 3.8 [facility] Alkaline phosphatase 79 35 - 104 U/L [facility] AST 29 10 - 35 U/L [facility] ALT 39 5 - 50 U/L [facility] Total bilirubin <0.2 0.0 - 1.2 [facility] mg/dL [facility] Specimen Blood Performing Organization Address City/State/Zipcode Phone Number [facility] DEPARTMENT OF PATHOLOGY AND [address] [place], [place] [address] GENOMIC MEDICINE [address] [address] Urinalysis screen and microscopy, with reflex to culture (11/12/2019 2:44 PM CDT) Specimen site Clean catch [facility] Color, UA Straw [facility] Appearance, UA Hazy [facility] Specific gravity, UA 1.020 1.001 - 1.035 [facility] pH, UA 8.0 5.0 - 8.5 [facility] Protein, UA Negative Negative [facility] Glucose, UA Negative Negative [facility] Ketones, UA Negative Negative [facility] Bilirubin, UA Negative Negative [facility] Blood, UA Negative Negative [facility] Nitrite, UA Negative Negative [facility] Urobilinogen, UA <2.0 <2.0 [facility] Leukocyte esterase, Negative Negative [facility] Epithelial cells, UA 6 /HPF [facility] WBC, UA <1 0 - 4 /HPF [facility] RBC, UA None seen 0 - 5 /HPF [facility] Bacteria, UA Few None seen [facility] Yeast, UA None seen [facility] Yeast with None seen [facility] pseudohyphae, UA HOSPITAL Specimen Urine Performing Organization Address City/[facility]/Zipcode Phone Number [facility] DEPARTMENT OF PATHOLOGY AND [address] [place] [address] [phone] [address] hCG qualitative, urine screen (11/12/2019 2:44 PM CDT) hCG qualitative, NegativeComment: [facility] urine Sensitivity of [facility] test: 25 mIU/mL Specimen Urine Performing Organization Address City/[facility] Phone Number [facility] DEPARTMENT OF PATHOLOGY AND [address] [place] [address] [phone] [address] Urine drugs of abuse screen (11/12/2019 2:44 PM CDT) Amphetamine screen, Negative [place] urine [facility] Barbiturate screen, Negative [place] urine [facility] Benzodiazepine Negative [place] screen, urine [facility] Cocaine screen, urine Negative [facility] Methadone metabolite Negative [place] (EDDP), urine [facility] Opiates screen, urine Negative [facility] Oxycodone screen, Negative [place] urine [facility] Phencyclidine screen, Negative [place] urine [facility] Tricyclic screen, Negative [place] urine [facility] Cannabinoid screen, Negative [place] urine Comment: [facility] Drug screen minimum concentration of detectability [facility]OSPITAL Amphetamines 1000 ng/mL Barbiturates 200 ng/mL Benzodiazepines 300 ng/mL Cocaine 300 ng/mL Methadone 300 ng/mL Opiates 300 ng/mL Oxycodone 300 ng/mL Phencyclidine 25 ng/mL Cannabinoids 50 ng/mL Tricyclics 1000 ng/mL Results are from screening tests and should only be used for medical evaluation. Drug testing for legal purposes requires definitive (or confirmatory) testing methods, which are available upon request. Contact the laboratory if definitive testing is requir ed. Specimen Urine Performing Organization Address City/[facility] Phone Number [facility] DEPARTMENT OF PATHOLOGY AND [address] [place] [address] [phone] [address] Urine culture (11/12/2019 2:44 PM CDT) Pathologist Sig nature Urine culture SEE COMMENTComment: [facility] Bacteriuria screen HOSPITAL negative. 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
--- OUTSIDE RECORDS SUMMARY | 2019-12-14 19:31 | XMS REPORT | Clinical Summary ---
:1990 Author Organization [facility] Address [address] [place] [address] Care Team Providers Name Role Phone Unavailable Primary Care Provider Unavailable Allergies No Known Allergies Medications Medication Sig Dispensed Refills Start Date End Date Status levETIRAcetam (KEPPRA) Take 1 tablet 60 tablet 2 05/19/2017 Active 1000 MG tablet (1,000 mg total) by mouth 2 (two) times daily. vitamin Take 1 tablet by 90 tablet 3 05/20/2017 Active w/crbznng-qdnw-qyesqh mouth daily. ( PLUS) 27 mg iron- [...] Not on file Results Not on fileafter 12/13/2018 Insurance Payer Benefit Plan / Group Subscriber ID Type Phone A [facility] MEDICAID [place]ICA[place] xxxxxxxxx Medicaid [id number] Advance Directives For more information, please contact:[facility] [place], [place] [phone] Code Status Date Activated Date Inactivated Comments Full Code 05/14/2017 10:10 PM 05/19/2017 2:55 PM This code status was determined by: Patient
--- OUTSIDE RECORDS SUMMARY | 2019-12-14 19:36 | XMS REPORT | Continuity of Care Document ---
:1990 Author Organization [facility] t Address [address] [place] [address] Care Team Providers Name Role Phone Asked, Pcp Primary Care Physician Unavailable Adrianne Hansen Attending Clinician Rita SABA Attending Clinician Doctor Unassigned, Name Attending Clinician Unavailable Lory MENDOZA Attending Clinician Di TAYLOR Attending Clinician Unavailable Adolfo Bailey MD Attending Clinician Alissa MENDOZA Attending Clinician Susi Diana MD Attending Clinician Aleksandar MENDOZA Attending Clinician Kia MENDOZA, L Attending Clinician BRANDO RODAS Attending Clinician Unavailable ALISSA Admitting Clinician Unavailable Juliano DEJESUS Admitting Clinician Unavailable Payers Payer Name Policy Type Policy Number Effective Date Expiration Date S sb CIGNACIGNA OPEN xxxxxxxxxxx 2019 [place] ACCESS/NETWORKxx 00:00:00 Methodis t 0-PresentHMO MEDICAIDMEDICAID xxxxxxxxx 2019 [place] 00:00:00 Methodis t 0-PresentMedicai d Problems Condition Condition Condition Status Onset Resolution Last Treating Co mments Source Name Details Category Date Date Treatment Clinician Date Seizure Seizure Disease Active [place] 11-11 [facility] 00:00: st 00 Hypokalemi Hypokalemi Disease Active 2016-[address] [facility]04 [facility] Acute Acute Disease Active 2016-[address] [facility] encephalop encephalop 1-30 Marianna kes - athy athy 00:00: Medical 00 Means Seizure Seizure Disease Active 2016-[address] [facility] [address] disorder disorder 1-30 [facility] - 00:[facility] Medical 00 Means Leukocytos Leukocytos Disease Active 2016-[address] [facility] is 1-30 [facility] 00 Center Less than Less than Disease Active 2016-[address] [facility] 8 weeks 8 weeks 1-30 [facility] - gestation gestation 00:00: [facility] Allergies, Adverse Reactions, Alerts Allergy Allergy Status Severity Reaction(s) Onset Inactive Treating Comm ents Source Name Type Date Date Clinician No Known DA Active [facility] 9[facility]11 [facility] No Known DA Active U 2016-06 [facility] Allergie -24 [facility] s 00:00: Jess Medical Means Social History Social Habit Start Date Stop Date Quantity Comments Source Sex Assigned At [facility] ethodist Alcohol intake 2019-11-12 2019-11-12 Ex-drinker [facility] thodist 00:00:00 00:00:00 (finding) Smoking Status Start Date Stop Date Source Never smoker [place] Methodis t Medications Ordered Filled Start Stop Current Ordering Indication Dosage Frequency Signature Comments Components Source Medication Medication Date Date Medication? Clinician (SIG) Name Name levETIRAcet 2019- No 750mg Q.5D Take 750 [facility] am (KEPPRA) 11-1402 mg by Method i 750 MG 17:12: 00:[address] tablet 15 :00 (two) times a day. levETIRAcet 2019- Yes 2250mg Q.5D Take 3 [place] am (KEPPRA) 11-14 tablets Meth maude 750 MG 00:00: 23:59 (2,[address] tablet 00 :00 total) by mouth 2 (two) times a day for 30 days. B 2019- Yes 1{tbl} QD Take 1 [facility] complex-vit 11-14 tablet by Dc thodi carter 00:00: 23:[address] C-folic 00 :00 daily for acid 30 days. (FOLBEE PLUS 5 MG) 5 mg tablet per tablet cloBAZam 2019- Yes 10mg QD Take 1 [place] (ONFI) 10 11-14 tablet (10 Met hodi mg tablet 00:00: 23:59 mg total) st 00 :00 by mouth nightly for 30 days. ferrous 2019- Yes 325mg Q.5D Take 1 [place] sulfate 325 11-14 tablet Metho di (65 FE) MG 00:00: 23:59 ([address] tablet 00 :00 total) by mouth 2 (two) times a day with meals for 30 days. docusate 2019- Yes 100mg Q.5D Take 1 [place] on sodium 11-14 capsule Methodi (COLACE) 00:00: 23:59 ([address] 100 MG 00 :00 total) by capsule mouth 2 (two) times a day as needed for constipati on for up to 30 days. 2016-06 Yes 1{tbl} QD Take 1 [facility] vitamin 2-06 tablet by [facility] - w/calcium-i 00:00: mouth Medic al arabella-folate 00 daily. Center ( PLUS) 27 mg iron- 1 mg Tab levETIRAcet 2016-06 Yes 1000mg Q.5D Take [address] am (KEPPRA) 2-05 tablet [facility] - 1000 MG 00:00: (1,000 mg Medic al tablet 00 total) by Center mouth 2 (two) times daily. Vital Signs Vital Name Observation Time Observation Value Comments Source Systolic blood 2019-11-15 12:02:13 114 mm[Hg] Luz n [facility] pressure Diastolic blood 2019-11-15 12:02:13 74 mm[Hg] Julee on [facility] pressure Heart rate 2019-11-15 12:02:13 93 /min Enrique Piedra Body temperature 2019-11-15 12:02:13 36.78 Melody Hous ton [facility] Respiratory rate 2019-11-15 12:02:13 18 /min Sonja ton [facility] Oxygen saturation in 2019-11-15 12:02:13 97 /min Enrique Piedra Arterial blood by Pulse oximetry Body height 2019-11-12 20:45:30 160 cm Enrique Piedra Body weight 2019-11-12 20:45:30 69.037 kg Enrique Piedra BMI 2019-11-12 20:45:30 26.96 kg/m2 Enrique Piedra Procedures Procedure Date / Time Performing Clinician Source Performed UNMONITORED VIDEO-EEG 36 2019-11-15 09:41:23 Bina Bonds HRS 1 MIN-50 HRS CBC WITH PLATELET AND 2019-11-15 04:30:00 Adrian Diana DIFFERENTIAL Ebrahim MANUAL DIFFERENTIAL 2019-11-15 04:30:00 Adrian Dianaist Ebrahim BASIC METABOLIC PANEL 2019-11-15 04:00:00 Adrian Diana Ebrahim ESTIMATED GFR 2019-11-15 04:00:00 Adrian Diana Meth odist Ebrahim UNMONITORED VIDEO DAILY 2019-11-15 01:22:22 Bina Bonds EEG SETUP 2019-11-14 00:26:44 Bina Bonds EEG (ROUTINE) 2019-11-13 07:46:23 Bina Bonds CBC WITH PLATELET AND 2019-11-13 04:00:00 Caesar Maxwellist DIFFERENTIAL BASIC METABOLIC PANEL 2019-11-13 04:00:00 Caesar Maxwell on [facility] TOTAL IRON BINDING 2019-11-13 04:00:00 Caesar Maxwell [facility] CAPACITY FERRITIN LEVEL 2019-11-13 04:00:00 Caesar Maxwell Met hodist ESTIMATED GFR 2019-11-13 04:00:00 Caesar Maxwell Met hodist MANUAL DIFFERENTIAL 2019-11-13 04:00:00 Caesar Maxwell MRI BRAIN W WO CONTRAST 2019-11-13 02:16:00 Bina Bonds CONSULT TO OSTOMY CARE 2019-11-12 23:40:27 Caesar Maxwell [facility] NURSE ECG 12-LEAD 2019-11-12 21:10:47 Bina Bonds MARCELINO 2019-11-12 19:40:00 Bina Bonds FOLATE LEVEL 2019-11-12 19:40:00 Bina Bonds VITAMIN B12 LEVEL 2019-11-12 19:40:00 Bina Bonds [facility] C-REACTIVE PROTEIN 2019-11-12 19:40:00 Bina Bonds on Anglican HOMOCYSTINE, PLASMA 2019-11-12 19:40:00 Bina Bonds [facility] CORTISOL LEVEL, RANDOM 2019-11-12 19:40:00 Bina Bondsston [facility] SEDIMENTATION RATE 2019-11-12 19:40:00 Bina Bonds on Anglican RHEUMATOID FACTOR 2019-11-12 19:40:00 Bina Bonds [facility] THYROID STIMULATING 2019-11-12 19:40:00 Bina Bonds [facility] HORMONE T4, FREE 2019-11-12 19:40:00 Bina Bonds SYPHILIS TOTAL ANTIBODY 2019-11-12 19:40:00 Bina Bonds HIV AG/AB COMBINATION 2019-11-12 19:40:00 Bina Bonds [facility] VITAMIN D 25 HYDROXY 2019-11-12 19:40:00 Bina Bonds stoalberta Anglican LEVEL CREATINE KINASE, TOTAL 2019-11-12 19:40:00 Bailey, Shari Ladd on Anglican (CPK) Adolfo PROLACTIN LEVEL 2019-11-12 19:40:00 Shari Bailey Meth odist Adolfo MARCELINO TITER 2019-11-12 19:40:00 Shari Bailey Meth odist Adolfo CT CERVICAL SPINE WO 2019-11-12 18:12:54 Shari Bailey [facility] CONTRAST Adolfo CT MAXILLOFACIAL WO 2019-11-12 18:09:40 Shari Bailey [facility] CONTRAST Adolfo CT HEAD WO CONTRAST 2019-11-12 18:09:19 BaileyShari chase [facility] Adolfo XR CHEST 1 VW PORTABLE 2019-11-12 17:35:36 Leo Shari Ladd on Anglican Adolfo HC COMPLETE BLD COUNT 2019-11-12 17:04:00 Shari Bailey Anglican W/AUTO DIFF [facility] COMPREHENSIVE METABOLIC 2019-11-12 17:04:00 Shari Bailey [facility] PANEL [facility] ALCOHOL LEVEL, BLOOD 2019-11-12 17:04:00 Leo Sharimayda Nunez Anglican Adolfo KEPPRA (LEVETIRACETAM) 2019-11-12 17:04:00 Shari Bailey on Anglican LEVEL [facility] ESTIMATED GFR 2019-11-12 17:04:00 BaileyShari chase Meth odist Adolfo URINE CULTURE 2019-11-12 14:44:00 Keanu Flores Meth odist URINALYSIS SCREEN AND 2019-11-12 14:44:00 Keanu Flores [facility] MICROSCOPY, WITH REFLEX TO CULTURE HCG QUALITATIVE, URINE 2019-11-12 14:44:00 Keanu Flores [facility] SCREEN URINE DRUGS OF ABUSE 2019-11-12 14:44:00 Keanu Floresist SCREEN Plan of Care Planned Activity Planned Date Details Comments Source Future Scheduled 2020-01-14 INFLUENZA VACCINE Luz pinzon [facility] Test 00:00:00 [code = INFLUENZA VACCINE] Future Scheduled 2010 Screening for [facility] thodist Test 00:00:00 malignant neoplasm of cervix (procedure) [code = 243807666] Encounters Start End Encounter Admission Attending Care Care Encounter Source Date/Time Date/Time Type Type Clinicians Facility Department ID 2019-11-29 2019-11-29 Emergency Rohit [facility] [id number] 13:51:42 18:42:00 Brittany Leach [id number] [place] 4.2.7.2.686 [place] [id number] 2019-11-29 2019-11-29 Telephone Rita [facility] [id number] 00:00:00 00:00:00 Cecilia Leach [id number] [place] [id number] [id number] 134 [facility] 2019-11-29 2019-11-29 Orders Doctor ELVIA [id number] 00:00:00 00:00:00 Only Unassigned, MICHAELLE [id number] [place] [facility] 4.2.7.2.686 [id number] 2019-11-12 2019-11-15 Inpatient [facility] [id number] [place] 00:00:00 00:00:[address] 2019-10-24 2019-10-24 [facility] [id number] 14:33:37 23:59:00 Encounter Sj OCHOA [id number] MEDICAL 4.2.7.2.686 [place] [id number] 2019-10-11 2019-10-11 [id number] 00:00:00 00:00:00 Cecilia Leach [id number] [place] 4.2.7.2.686 [facility] [phone] [facility] 134 [facility] 2019-10-06 2019-10-06 Telemedici Rita [facility] [id number] 08:13:12 15:30:52 ne Visit Cecilia Leach [id number] [place] 4.2.7.2.686 Professio [id number] [address] 2019-08-12 2019-08-12 [facility] [id number] 00:00:00 00:00:00 Management Daina Leach [id number] [place] 4.2.7.2.686 Professio [id number] [address] 2019-08-12 2019-08-12 Telephone Ad, [facility] [id number] 00:00:00 00:00:00 Daina Leach 350.1.13.10 [place] 4.2.7.2.686 Professio [id number] [address] 2019-08-10 2019-08-10 [facility] [id number] 14:12:35 15:35:54 Visit Daina Leach 350.1.13.10 [place] 4.2.7.2.686 Professio [id number] [address] Results Test Description Test Test Results Result Source Time Comments Comments Continuous EEG 2019-11- CONTINUOUS VIDEO-EEG [facility] [address] 17:34:53 Patient Name: Heather Hope Date of : 1990 Gender: female Initial Study Start Date: 11/13/2019Initial Study Start Time: 5:07 Current Study Start Date: 11/15/2019Current Study Start Time: 00:00 Current Study End Date: 11/15/2019Current Study End Time: 7:33 IndicationSeizures Technical SummaryTechnique:Modifie d international 10/20 system of EEG electrode placement was used. Visual Analysis of EEG-Video Monitoring:This electroencephalogram was recorded simultaneously with video throughout the monitoring. The EEG was visually inspected and analyzed for characterization of the background activity in all awake and sleep states, abnormal focal and generalized features, and intraictal and ictal epileptiform activity. Electrical seizure activity was correlated with the patients clinical activity recorded on video and video captured clinical events were correlated with simultaneously recorded EEG activity. Computer Analysis of EEG Waveforms:The EEG underwent continuous computerized digital spectral analysis, which consisted of real time detection of electrical events that could be considered epileptiform. All electrographic events identified by the detection program were visually inspected in order to assess the waveform characteristics and significance of these electrographic events. All intraictal and ictal epileptiform events are described further below with additional details of the visual analysis of the EEG. Events detected by computer analysis that were not determined by visual analysis to be epileptiform were considered to be myogenic, biologic, mechanical, or electrical artifact in origin. Only computer detected events that have been verified by visual inspection to be interictal or ictal epileptiform discharges are reported below and considered in the final report of this monitoring study. Findings Awake Recordings: The occipital dominant rhythm is 8-9 Hz. 2-3 Hz activity was present in all regions. 18-22 Hz activity was present in all regions. Intermittent 3-4 Hz activity with sharp waves were recorded in the right frontal central temporal greater than left frontal cental temporal regions. Sleep Recording: Intermittent 3-4 Hz activity with sharp waves were recorded in the right frontal central temporal greater than left frontal central temporal regions. Hyperventilation: Was not performed. Photic Stimulation: Was not performed. Impression: The background activity is mildly diffusely slow which is consistent with a diffuse disturbance in brain function with focal potentially epileptogenic lesions in the right and left frontal central temporal regions independently. No seizures occurred. ICD-10 Code: R56.9 MARCELINO titer 2019-11-15 13:12:21 Test Item Value Reference Range Interpretation Comme nts MARCELINO titer (test code = 04719-8) 1:160 Not-Detected A MARCELINO pattern (test code = 21100-7) Homogeneous Not-Detected A Lab Interpretation (test code = 68796-9) [facility]normal [id number] 13:08:33 Test Item Value Reference Range Interpretation Comments MARCELINO screen (test code Positive Negative A Test p erformed using = 550) NOVA Lite DAPI MARCELINO kit (Indirect Immunofluoresce nce Assay) for Anti -Nuclear Antibody on Social Shopping Network[employer]-Lyser 16 0 Analyzer. Lab Interpretation Abnormal (test code = 74292-2) [place] [facility] with platelet and [id number] 08:57:11 Test Item Value Reference Range Interpretation Comments WBC (test code = 78413-2) 7.99 4.50- 11.00 k/uL RBC (test code = 03713-1) 4.06 m/uL 4.2-5.5 L HGB (test code = 718-7) 10.8 g/dL 12-16 L HCT (test code = 4544-3) 34.1 % 37-47 L MCV (test code = 787-2) 84.0 fL 82-100 MCH (test code = 785-6) 26.6 pg 27-34 L MCHC (test code = 786-4) 31.7 g/dL 31-37 RDW - SD (test code = 41885-0) 48.1 fL 37-55 MPV (test code = 86435-1) 10.2 fL 8.8-13.2 Platelet count (test code = 251 150- 400 k/uL 14722-9) Nucleated RBC (test code = 0.00 /100 WBC 82328-3) Neutrophils (test code = 15585-5) 51.0 % 39-69 Lymphocytes (test code = 65650-9) 34.0 % 25-45 Monocytes (test code = 15507-7) 13.0 % 0-10 H Eosinophils (test code = 24141-8) 2.0 % 0-5 Basophils (test code = 28731-4) 0.0 % 0-1 Lab Interpretation (test code = Abnormal 16286-3) Enrique MethodistManual [id number] 08:57:11 Test Item Value Reference Range Interpretation Comments Manual differential (test code = PERFORMED 97862-1) Neutrophils (test code = 51.0 % 39-69 18518-3) Lymphocytes (test code = 34.0 % 25-45 54337-3) Monocytes (test code = 85990-4) 13.0 % 0-10 H Eosinophils (test code = 2.0 % 0-5 76771-3) Basophils (test code = 16109-6) 0.0 % 0-1 Metamyelocytes (test code = 0 % 740-1) Promyelocytes (test code = 0 % 783-1) Platelet slide review (test code Sana adequate = 65199-5) Anisocytosis (test code = 702-1) Moderate Ovalocytes (test code = 774-0) Moderate Enlarged platelets (test code = Moderate A 52834-7) Lab Interpretation (test code = Abnormal 76108-2) Enrique MethodistContinuous EEG [id number] 07:42:19CONTINUOUS VIDEO- EEG MONITORING REPORT Patient Name: Heather Hope Date of : 1990 Gender: female Initial Study Start Date: 11/13/2019Initial Study Start Time: 5:07 Current Study Start Date: 11/14/2019Current Study Start Time: 00:00 Current Study End Date: 11/14/2019Current Study End Time: 23:59 IndicationSeizures Technical SummaryTechnique:Modified international 10/20 system of EEG electrode placement was used. Visual Analysis of EEG-Video Monitoring:This electroencephalogram was recorded simultaneously with video throughout the monitoring. The EEG was visually inspected and analyzed for characterization of the background activity in all awake and sleep states, abnormal focal and generalized features, and intraictal and ictal epileptiform activity. Electrical seizure activity was correlated with the patients clinical activity recorded on video and video captured clinical events were correlated with simultaneously recorded EEG activity. Computer Analysis of EEG Waveforms:The EEG underwent continuous computerized digital spectral analysis, which consisted of real time detection of electrical events that could be considered epileptiform. Allelectrographic events identified by the detection program were visually inspected in order to assessthe waveform characteristics and significance of these electrographic events. All intraictal and ictal epileptiform events are described further below with additional details of the visual analysis of the EEG. Events detected by computer analysis that were not determined by visual analysis to be epileptiform were considered to be myogenic, biologic, mechanical, or electrical artifact in origin. Only computer detected events that have been verified by visual inspection to be interictal or ictal epileptiform discharges are reported below and considered in the final report of this monitoring study. Findings Awake Recordings: The occipital dominant rhythm is 8-9 Hz. 2-3 Hz activity was present in all regions. 18-22 Hz activity was present in all regions. Intermittent 3-4 Hz activity with sharp waves were recorded in the right frontal central temporal greater than left frontal cental temporal regions. Sleep Recording: Intermittent 3-4 Hz activity with sharp waves were recorded in the right frontal central temporal greater than left frontal central temporal regions. Hyperventilation: Was not performed. Photic Stimulation: Was not performed. Impression: The background activity is mildly diffusely slow which is consistent with a diffuse disturbance in brain function with focal potentially epileptoge stefania lesions in the right and left frontal central temporal regions independently. No seizures occurred. ICD-10 Code: R56.9[facility] MethodistBasic metabolic [id number] 06:44:31 Test Item Value Reference Range Interpretation Comments Sodium (test code = 2951-2) 135 135- 148 mEq/L Potassium (test code = 2823-3) 3.4 3.5- 5.0 mEq/L L Chloride (test code = 2075-0) 103 98- 112 mEq/L CO2 (test code = 2027-9) 21 24- 31 mEq/L L Anion gap (test code = 25511-7) 11@ANIO 7- 15 mEq/L BUN (test code = 3094-0) 9 mg/dL 6-20 Creatinine (test code = 2160-0) 0.48 mg/dL 0.5-0.9 L Glucose (test code = 2345-7) 95 mg/dL 65-99 Calcium (test code = 44855-2) 9.2 mg/dL 8.3-10.2 Lab Interpretation (test code = Abnormal 89660-0) Nunez MethodistEstimated [id number] 06:44:31 Test Item Value Reference Range Interpretation Comments Estimated GFR (test >=90 mL/min/1.73 m2 Catjohn wiggins Units code = 5488) InterpretationG 1 >=90 Normal or highG2 60-89 Mildly dtyodrnagQ5z 45-59 Mildly to mode rately tfwwrokaoN5g 30-44 Moderately to severely decreasedG4 15-29 Severely decre asedG5 <15 Kidn ey failureThe eGFR was calculated alyssa fortune the Chronic Kidney Disease Epidemiology Co llaboration (CKD-EPI) equat ion. Interpretation is based on recommendations of the National Kidney Foundation-Kidn ey Disease Outcomes Qualit y Initiative (NKF-KDOQI) pub lished in 2014. Enrique CruzistKeppra (Levetiracetam) [id number] 05:29:41 Test Item Value Reference Interpretation Comments Range Levetiracetam 30 ug/mL 12-46 INTERPRETIVE I NFORMATION: (test code = Danilora 4478-4) (Levetiracetam) Therapeutic Range: 12-46 u g/mL Toxic: Not wel l EstablishedPhar macokinetics of levetiracetam a re affected by renal function. Adverse effects may include andi nolence, weakness, heada justus and vomiting.This l evetiracetam (Keppra) immuno assay uses the [employer] reagents, which has known cross -reactivity with the drug brivar acetam (Briviact) and may report inaccurate resu lts. Patients transitioning f rom levetiracetam t o brivaracetam or those who ar e using both medications alejandra uld not monitor drug concentrat ions with the [employer] assay. These patients should be monitored using a validat ed chromatographic methodology that distinguis hes between drugs to determ ine drug concentrations. Performed by [facility],[address] [facility],[place] [address] thj .[employer], Josué Barreto MD, Lab. Director Enrique CruzistVitamin D 25 hydroxy [id number] 15:46:04 Test Item Value Reference Range Interpretation Comments Vitamin D, 25-hydroxy 13.6 ng/mL 30-150 L This a ssay reports (test code = 1989-3) the sum of 25-hydroxy vandana min D3 and 25-hydro xy vitamin D2. Reference range :0-17 years:Deficienc y: less than 20ng/mLOptimum level: greater than or equal to 20 ng/mL.18 years and older:Deficienc y: less than 20ng/mLInsuffic iency : 20-29 ng/mLOp timum Level: 30-80 ng/mLThe assay reportable rang e is 3.4 155.9 ng/m L. Levels higher t strickland 150 ng/mL may b e associated with toxicity.If tox icity is clinically suspected and t he reported result is >155.9 ng/mL,co ntact lab for alterna tive methods to obta in a definitive lev el.If separate quantitation of 25-hydroxy vandana min D3 and 25-hydro xy vitamin D2 is needed, please contact lab for alternative met hods. Lab Interpretation Abnormal (test code = 04664-1) Enrique PiedraContinuous EEG [id number] 07:19:24 CONTINUOUS VIDEO-EEG MONITORING REPORT Patient Name: Heather Hope Date of : 1990 Gender: female Initial Study Start Date: 11/13/2019Initial Study Start Time: 5:07 Current StudyStart Date: 11/13/2019Current Study Start Time: 5:07 Current Study End Date: 11/13/2019Current Study End Time: 23:59 IndicationSeizures Technical SummaryTechnique:Modified international 10/20 system of EEG electrode placement was used. Visual Analysis of EEG-Video Monitoring:This electroencephalogram was recorded simultaneously with video throughout the monitoring. The EEG was visually inspected and analyzed for characterization of the background activity in all awake and sleep states, abnormal focaland generalized features, and intraictal and ictal epileptiform activity. Electrical seizure activity was correlated with the patients clinical activity recorded on video and video captured clinical events were correlated with simultaneously recorded EEG activity. Computer Analysis of EEG Waveforms:The EEG underwent continuous computerized digital spectral analysis, which consisted of real time detection of electrical events that could be considered epileptiform. All electrographic events identified by the detection program were visually inspected in order to assess the waveform characteristics and significance of these electrographic events. All intraictal and ictal epileptiform events are described further below with additional details of the visual analysis of the EEG. Events detected by computer analysis that were not determined by visual analysis to be epileptiform were considered to be myogenic, biologic, mechanical, or electrical artifact in origin. Only computer detected events that have been verified by visual inspection to be interictal or ictal epileptiform discharges are reported below and considered in the final report of this monitoring study. Findings Awake Recordings: The occipital dominant rhythm is 6-7 Hz. 2-3 Hz activity was present in all regions. 18-22 Hz activity was pr esent in all regions. Intermittent 3-4 Hz activity with sharp waves were recorded in the right frontal central temporal greater than left frontal cental temporal regions. Sleep Recording: Intermittent3-4 Hz activity with sharp waves were recorded in the right frontal central temporal greater than left frontal central temporal regions. Hyperventilation: Was not performed. Photic Stimulation: Was notperformed. Impression: The background activity is diffusely slow which is consistent with a diffuse disturbance in brain function with focal potentially epileptogenic lesions in the right and left frontal central temporal regions independently. No seizures occurred. ICD-10 Code: R56.9[facility] (routine) - Baseline [id number] 06:43:32EEG RECORDING AWAKE & ASLEEP - Baseline for Bedside Date of Service:11/13/19 Awake Recordings: The occipital dominant rhythm is 6-7 Hz. 2-3 Hz activity was present in all regions. 18-22 Hz activitywas present in all regions. Intermittent 3-4 Hz activity with sharp waves were recorded in the rightfrontal temporal greater than left frontal temporal regions. Sleep Recording: Intermittent 3-4 Hz activity with sharp waves were recorded in the right frontal temporal greater than left frontal temporal regions. Hyperventilation: Was not performed. Photic Stimulation: Was not performed. Impression: The background activity is diffusely slow which is consistent with a diffuse disturbance in brain function with focal potentially epileptogenic lesions in the right and left frontal temporal regions indep endently. No seizures occurred. ICD-10 Code: R56.9 Shahzad Childers, Clinical Neurophysiology I reviewed the entire EEG and agree with the above findings. Toya Rojo MethodistECG 12 [id number] 20:07:26 Test Item Value Reference Range Interpretation Comments Ventricular rate (test 81 code = 253) Atrial rate (test code = 81 255) MI interval (test code = 164 266) QRSD interval (test code 84 = 260) QT interval (test code = 386 264) QTC interval (test code 448 = 265) P axis 1 (test code = 52 267) QRS axis 1 (test code = 4 268) T wave axis (test code = 13 270) EKG impression (test Normal sinus code = 273) rhythm-Normal ECG-No previous ECGs available-Electronica lly Signed By Adrian Ibarra MD ([id number]) on 11/13/2019 8:07:25 PM [place] MethodistSyphilis total eaqryuvy3944-26-35 10:13:08 Test Item Value Reference Range Interpretation Comments Syphilis total Non-reactive Non-reactive No serologica l antibody (test code evidence of syphilis = 6194) infection. [facility] MethodistFerritin zfxzh8658-31-50 07:54:01 Test Item Value Reference Range Interpretation Comments Ferritin level (test code = 2276-4) <13 13-150 A Lab Interpretation (test code = Abnormal 09598-6) [facility] MethodistTotal iron binding sedpdwwa0697-80-93 07:50:12 Test Item Value Reference Range Interpretation Comments Iron level (test code = 2498-4) 20 ug/dL 37-145 L Iron binding capacity (test code = 335 ug/dL 822-656 5114-7) % Saturation (test code = 2502-3) 6.0 % 15-38 L Lab Interpretation (test code = Abnormal 80221-0) [facility]MRI Brain W Wo [id number] 06:11:14Hm Interface, Radiology Results 11/13/2019 6:14 AM CDTEXAMINATION: MRI BRAIN W WO CONTRASTCLINICAL HISTORY: Seizure protocolCOMPARISON: Head CT on 11/12/2019TECHNIQUE: Brain MRI without and with intravenous gadolinium contrast, seizure protocol, including high resolution 3D T1 DOWD, coronal oblique T2 FSE and T2 FLAIR, and 3D pCASL with PLD of 1.5 seconds.FINDINGS:The study is somewhatlimited by patient motion, particularly on high-resolution coronal 3D T1 DOWD, T2 FSE, and T2 FLAIRimages. Accounting for this limitation, the brain appears normal in signal and configuration with noevidence of acute infarction, hemorrhage, mass lesion, or abnormal enhancement.Hippocampi are symmetric and within normal limits in signal and configuration with no evidence of mesial temporal sclerosis. No evidence of edmondson matter heterotopia or cortical dysplasia.Cerebral perfusion is unremarkable with no interictal hypoperfusion or cuco-ictal hyperperfusion identified.Ventricles, sulci, and cisterns are normal in size and configuration. No extra-axial fluid collection. Flow voids of the major intracranial vessels are intact.Visualized paranasal sinuses and mastoid air cells are clear. Bones, orbits, and soft tissues are unremarkable.IMPRESSION:1. Unremarkable brain MRI with no structural abnormality identified to explain patient's seizures.2. Cerebral perfusion within normal limits with no regional interictal hypoperfusion or cuco-ictal hyperperfusion to localize seizure focus.[facility]-[id number] MethodistSedimentation rate 2019-11-12 22:03:32 Test Item Value Reference Range Interpretation Comments Sedimentation rate (test code = 9 0- 20 mm/hr 51363-9) [place] [facility]Ab wvgyaatwiwf4334-23-76 21:46:22 Test Item Value Reference Range Interpretation Comments HIV Ag/Ab combination (test code Non-reactive Non-reactive = 5299) [facility] Station[facility]itamin B12 wwzny8632-93-49 20:56:33 Test Item Value Reference Range Interpretation Comments Vitamin B12 (test 466 pg/mL 211-946 Significan t overlap code = 2132-9) exists betwee n normal and deficiency states.However, most patients with deficiencies wi ll have Serum B12 <2 00 pg/mL. [place] MethodistFolate llffu2301-59-63 20:56:33 Test Item Value Reference Range Interpretation Comments Folate (test code = 2284-8) 9.3 ng/mL 4.8-24.2 [facility] MethodistT4, fzpn5264-88-70 20:48:50 Test Item Value Reference Range Interpretation Comments T4, free (test code = 3024-7) 1.2 ng/dL 0.9-1.7 [facility] MethodistCortisol level, vsswzp2516-24-04 20:48:37 Test Item Value Reference Range Interpretation Comments Cortisol, random 2 ug/dL Reference R anges are not (test code = 2143-6) establi shed for non-timed Cortisol levels .Reference Range for Timed Cortisol: 6 - 10 AM 6 - 18 ug/dl 4 - 8 PM 3 - 11 ug/ dl [place] MethodistThyroid stimulating andkwon4606-00-05 20:48:37 Test Item Value Reference Range Interpretation Comments TSH (test code = 3016-3) 2.21 0.27- 4.20 uIU/mL [place] MethodistProlactin vyumn1897-28-82 20:48:36 Test Item Value Reference Range Interpretation Comments Prolactin (test code = 2842-3) 22 ng/mL 5-23 [place] MethodistCreatine kinase, total (CPK)2019-11-12 20:42:35 Test Item Value Reference Range Interpretation Comments Creatine kinase (test code = 2157-6) 56 U/L 26-192 [facility] MethodistC-reactive lqqsfiw8699-86-21 20:42:35 Test Item Value Reference Range Interpretation Comments CRP (test code = 1987-) <0.30 0-0.5 [facility] MethodistRheumatoid qkfybv4789-78-11 20:36:01 Test Item Value Reference Range Interpretation Comments Rheumatoid factor (test code = 16678-7) <10 0- 13 IU/mL [place] MethodistHomocystine, brdaqm2910-90-71 20:36:01 Test Item Value Reference Range Interpretation Comments Homocysteine (test 10.3 umol/L 0-15 The risk for coronary code = 97127-1) vascular dis ease increases progressively w ith homocysteine concentration. A 3.4 times greater r isk is associated wit h a homocysteine concentration o f greater than 15.8 umol/L as carlin red to a concentration below 14.1 umol/L. [facility] MethodistCT Cervical Spine Wo Qvxuikex8686-16-49 18:17:20Hm Interface, Radiology Results 11/12/2019 6:20 PM CDTEXAMINATION: CT CERVICAL SPINE WO CONTRASTCLINICAL HISTORY: fallCOMPARISON: NoneTECHNIQUE: Axial noncontrast enhanced images of the cervical spine were obtained with coronal and sagittal reconstructed algorithms. CT imaging was performed with iterative reconstruction technique and/or automated exposure control to reduce radiation dose.FINDINGS:There is straightening of the normal cervical lordosis which may be positional in nature. There is grade 1 anterolisthesis of C4 on C5 by 0.4 cm. The vertebral body heights are maintained. No acute fracture or subluxation is identified in the cervical spine.The bony spinal canal of the cervical spine is patent. No high-grade bony neural foraminal narrowing is identified in the cervical spine.The visualized mastoid air cells are clear bilaterally. The occipital condyles are intact.The included lung apices are clear bilaterally. IMPRESSION: No acute fracture or subluxation identified in the cervical spine.[facility]-[id number] MethodistCT Maxillofacial Wo Kgqugisz6072-51-39 18:15:46Hm Interface, Radiology Results 11/12/2019 6:18 PM CDTEXAMINATION: CT MAXILLOFACIAL WO CONTRASTCLINICAL HISTORY: Facial trauma fx suspectedCOMPARISON: NoneTECHNIQUE: Axial noncontrast enhanced images through the maxillofacial bones were obtained with bone and soft tissue algorithms. Barbara nal and sagittal reconstructions were also performed. CT imaging was performed with iterative reconstruction techniques and/or automated exposure control to reduce radiation dose.IMPRESSION:There is soft tissue swelling over the left zygoma and left maxilla.No fractures identified.Postseptal orbital soft tissues are unremarkable.The paranasal sinuses are clear.[facility]-[id number] [facility] CT Head Wo Tmmdzlqv7199-75-03 18:11:26Hm Interface, Radiology Results 11/12/2019 6:14 PM CDTEXAMINATION: CT HEAD WO CONTRASTCLINICAL HISTORY: Seizure new nontraumatic 18-40 yrsCOMPARISON: NoneTECHNIQUE: Noncontrast CT of the brain was performed from the skull base to the vertex. Both soft tissue and bone reconstruction algorithms are interpreted.CT imaging was performed with iterative reconstruction techniques and/or automated exposure control to reduce radiation dose.FINDINGS:No intracranial hemorrhage, extra-axial collection, or mass-effect is seen. No acute cortical infarct is identified. No hyperdense vessel is seen.No air-fluid level is seen in the visualized portions of the paranasal sinuses. Mastoid air cells are clear.IMPRESSION:No acute intracranial abnormality identified.[facility]-[id number] MethodistComprehensive metabolic fdimm8983-28-19 18:10:58 Test Item Value Reference Range Interpretation Comments Sodium (test code = 142 135- 148 mEq/L 2951-2) Potassium (test code = 3.7 3.5- 5.0 mEq/L 2823-3) Chloride (test code = 106 98- 112 mEq/L 2075-0) CO2 (test code = 2027-9) 22 24- 31 mEq/L L Anion gap (test code = 14@ANIO 7- 15 mEq/L 82132-2) BUN (test code = 3094-0) 4 mg/dL 6-20 L Creatinine (test code = 0.60 mg/dL 0.5-0.9 2160-0) Glucose (test code = 98 mg/dL 65-99 2345-7) Calcium (test code = 9.4 mg/dL 8.3-10.2 05829-2) Protein (test code = 7.2 g/dL 6.3-8.3 -[place] n 2885-2) 4.6-7.0 g/dL1 week 4.4-7 .6 g/dL7 months-1y ear 5.1-7 .3 g/dL1-2 years 5.6-7 .5 g/dL>3 years 6.0-8 .0 g/oH27-329 6.3-8 .3 g/dL Albumin (test code = 3.7 g/dL 3.5-5 1751-7) A/G ratio (test code = 1.1 0.7-3.8 1759-0) Alkaline phosphatase 79 U/L 35-104 (test code = 6768-6) AST (test code = 1920-8) 29 U/L 10-35 ALT (test code = 1742-6) 39 U/L 5-50 Total bilirubin (test <0.2 0-1.2 code = 1975-2) Lab Interpretation (test Abnormal code = 85676-0) [facility] MethodistAlcohol level, [id number] 18:06:03 Test Item Value Reference Range Interpretation Comments Alcohol percent None Detected % Normal (test code = None Detec tedLegal 5643-2) Intoxication in [place] 80 mg/dL (0.08% ) - Whole BloodToxi c Concentration 200 mg/dL (0.2%)Potential ly Fatal 350 - 500 mg/dL (0.35 - 0 .5%) [facility] MethodistXR Chest 1 Vw Zlstftgr5488-88-27 17:37:03Hm Interface, Radiology Results 11/12/2019 5:40 PM CDTEXAMINATION: XR CHEST 1 VW PORTABLECLINICAL HISTORY: SOBXR CHEST 1 VW PORTABLE images are submittedCOMPARISON: NONEFINDINGS:The cardiac silhouette is normal in size. The pulmonary vasculature is within normal limits. The lung zones have no focal area of consolidation. There is no pleural effusion or pneumothorax.IMPRESSION:1. Thereis no acute cardiopulmonary disease.[id number] [facility] Urinalysis screen and microscopy, with reflex to qqwbhuk9461-18-55 16:10:59 Test Item Value Reference Range Interpretation Comments Specimen site (test code = Clean catch 5327978) Color, UA (test code = 5778-6) Straw Appearance, UA (test code = Hazy 5767-9) Specific gravity, UA (test code = 1.020 1.001-1.035 5811-5) pH, UA (test code = 5803-2) 8.0 5.0-8.5 Protein, UA (test code = 31333-6) Negative Negative Glucose, UA (test code = 12177-4) Negative Negative Ketones, UA (test code = 2514-8) Negative Negative Bilirubin, UA (test code = Negative Negative 5770-3) Blood, UA (test code = 5794-3) Negative Negative Nitrite, UA (test code = 5802-4) Negative Negative Urobilinogen, UA (test code = <2.0 <2.0 76706-5) Leukocyte esterase, UA (test code Negative Negative = 5799-2) Epithelial cells, UA (test code = 6 /HPF 5787-7) WBC, UA (test code = 5821-4) <1 0- 4 /HPF RBC, UA (test code = 97827-9) None seen 0- 5 /HPF Bacteria, UA (test code = Few None seen 63576-6) Yeast, UA (test code = 30906-6) None seen Yeast with pseudohyphae, UA (test None seen code = 97131-7) Enrique Bowman drugs of abuse lppmju8282-32-84 15:33:59 Test Item Value Reference Interpretation Comments Range Amphetamine screen, Negative urine (test code = 3349-8) Barbiturate screen, Negative urine (test code = 3377-9) Benzodiazepine Negative screen, urine (test code = 3390-2) Cocaine screen, Negative urine (test code = 3397-7) Methadone Negative metabolite (EDDP), urine (test code = 56509-9) Opiates screen, Negative urine (test code = 3879-4) Oxycodone screen, Negative urine (test code = 20591-7) Phencyclidine Negative screen, urine (test code = 3936-2) Tricyclic screen, Negative urine (test code = 42438-4) Cannabinoid screen, Negative Drug scr een minimum urine (test code = concentra tion of 3427-2) detectabilityAm phetamines 1000 ng/mLBarbiturat es 200 ng/mLBe nzodiazepines 300 ng/mLCocaine 300 ng/mLMethadone 300 ng/mLOp iates 300 ng/mLOxycodone 300 ng/mLPh encyclidine 25 ng/mLCannabinoi ds 50 ng/mLTr icyclics 1000 ng/mLResults are from screen ing tests and should only be used for medical evaluat ion. Drug testing for leg al purposes requires defini tive (or confirmatory) t esting methods, which are available upon request. C ontact the laboratory if d efinitive testing is requ ired. Enrique Bowman ggohzql9553-83-23 15:28:27 Test Item Value Reference Range Interpretation Comments Urine culture (test SEE COMMENT Bacteriu landry screen code = 9793335) negative. [facility] qualitative, urine racaqt0133-48-61 15:26:18 Test Item Value Reference Range Interpretation Comments hCG qualitative, Negative Sensitivity of HCG test: urine (test code = 25 mIU/mL 6-3) [facility] MethodistRPR Jqsasumthpv1209-60-38 16:47:08 Test Item Value Reference Range Interpretation Comments RPR Qual (test code = RPR Qual) Non-Reactive Non-Reactive Reactive Control (test code = Reactive Reactive Control) Weak Reactive Control (test Weak Reactive code = Weak Reactive Control) Non-Reactive Control (test code Non-Reactive = Non-Reactive Control) Lot # (test code = Lot #) [id number] Expiration Dt (test code = 06-14-2020 N Expiration Dt) Thyroid Stimulating Fecebug0768-39-95 06:31:44 Test Item Value Reference Range Interpretation Comments TSH (test code = TSH) 3.830 mIU/mL 0.270-4.200 Lipid Qyhbk3749-93-34 06:24:40 Test Item Value Reference Range Interpretation Comments Cholesterol Total 152 mg/dL 0-200 RISK OF HE ART (test code = DISEASEPublishe d by Cholesterol Total) [employer] Marcelino lyte Optimal Borderl ine Increased RiskC HOL [...] LDL/HDL Ratio=L DL Calc/HDL Chol Urine Drug Alsukg1068-56-69 21:53:06 Test Item Value Reference Range Interpretation [...] if desired . Urinalysis with Culture, if vpqxzeqzk7405-68-30 21:40:53 Test Item Value Reference Range Interpretation [...] Indicated Not Indicated Micro Ind?) Comprehensive Metabolic Ewcuc1559-02-05 21:34:15 Test Item Value Reference Range Interpretation [...] = A/G 1.6 ratio N Ratio) Alcohol Wyrlz6522-50-44 21:34:15 Test Item Value Reference Range Interpretation Comments Ethanol Level (test <0.00 g/dL 0.00-0.01 Intoxica vandana 0.080 g/dL code = Ethanol or more Level) Ethanol Inst (test <0 N code = Ethanol Inst) Comprehensive Metabolic Lckjg3059-95-21 21:34:15 Test Item Value Reference Range Interpretation [...] National Kidney Foundation, http://nkdep.ni h.gov Comprehensive Metabolic Qhclg8012-48-08 21:34:15 Test Item Value Reference Range Interpretation [...] Foundation, http://nkdep.ni h.gov Complete Blood Count with Dqlnxbrpxbbz5230-74-90 21:15:24 Test Item Value Reference Range Interpretation [...] code = IPF) 0 % N Automated Rawopepbyoqb4812-32-55 21:15:24 Test Item Value Reference Range Interpretation Comments Neutro Auto (test code = Neutro 54.3 % 36.0-70.0 Auto) Lymph Auto (test code = Lymph Auto) 32.3 % 12.0-44.0 [place] Auto (test code = [place] Auto) 11.1 % 0.0-11.0 H Eos, Auto (test code = Eos, Auto) 1.3 % 0.0-7.0 Basophil Auto (test code = Basophil 0.7 % 0.0-2.0 Auto) Neutro Absolute (test code = Neutro 6.2 x10 1.6-7.4 Absolute) Lymph Absolute (test code = Lymph 3.71 x10 .50-4.60 Absolute) [place] Absolute (test code = [place] 1.28 x10 .00-1.20 H Absolute) Eos Absolute (test code = Eos 0.15 x10 0.00-0.74 Absolute) Baso Absolute (test code = Baso 0.08 x10 0.00-0.21 Absolute) IG [id number] 21:15:24 Test Item Value Reference Range Interpretation Comments IG (test code = IG) 0.3 % 0.0-5.0 IG Abs (test code = IG Abs) 0 x10 N HCG Qualitative [id number] 20:45:17 Test Item Value Reference Range Interpretation [...] 72 hours. Lot # (test code = [id number] N Lot #) Expiration Dt (test 2020-12-12 N code = Expiration Dt) Neg Control (test Negative code = Neg Control) Pos Control (test Positive code = Pos Control) Internal QC (test Acceptable code = Internal QC) RPR Ihfqrptstnu9625-60-23 12:07:58 Test Item Value Reference Range Interpretation [...] = 04-14-2020 N Expiration Dt) Thyroid Stimulating Vzyseug6541-50-04 07:59:52 Test Item Value Reference Range Interpretation Comments TSH (test code = TSH) 0.717 mIU/mL 0.270-4.200 Lipid Ylaay5204-40-11 07:52:46 Test Item Value Reference Range Interpretation Comments Cholesterol Total 141 mg/dL 0-200 RISK OF HE ART (test code = DISEASEPublishe d by Cholesterol Total) [employer] Marcelino lyte Optimal Borderl ine Increased RiskC HOL [...] LDL/HDL Ratio=L DL Calc/HDL Chol Urine Drug [id number] 15:27:40 Test Item Value Reference Range Interpretation [...] matory test if desired . Comprehensive Metabolic [id number] 15:15:20 Test Item Value Reference Range Interpretation [...] A/G 1.9 ratio N Ratio) Comprehensive Metabolic [id number] 15:15:20 Test Item Value Reference Range Interpretation [...] the National Kidney Foundation, http://nkdep.ni h.gov Alcohol Mseyc2253-41-79 15:15:20 Test Item Value Reference Range Interpretation Comments Ethanol Level (test <0.00 g/dL 0.00-0.01 Intoxica vandana 0.080 g/dL code = Ethanol or more Level) Ethanol Inst (test <0 N code = Ethanol Inst) Comprehensive Metabolic [id number] 15:15:20 Test Item Value Reference Range Interpretation [...] ag e have not been validated by [facility] MDRD study and should be interpreted [...] ag e have not been validated by [facility] MDRD study and should be interpreted wit h caution. eGFR R esult Interpretation: eGFR > or = 60 is in the Normal RangeeGF R < 60 may mean kid shannan diseaseeGFR < 1 5 may mean kidney failure Rang es recommended by the National Kidney Foundation, http://nkdep.ni h.gov Urinalysis Wruzcxepvds9324-21-41 15:11:20 Test Item Value Reference Range Interpretation Comments UA WBC (test code = UA WBC) 6-10 0-5 A UA RBC (test code = UA RBC) 0-5 0-5 UA Bacteria (test code = UA Moderate A Bacteria) UA Squam Epithelial (test code = UA TNTC A Squam Epithelial) UA Mucous (test code = UA Mucous) Few A Urinalysis with Microscopic if egryoqyhe8136-33-41 14:42:58 Test Item Value Reference Range Interpretation [...] GL_SJM_UA_MICRO _IN D Complete Blood Count with Gdrnlwjkpcla8761-07-69 14:37:26 Test Item Value Reference Range Interpretation [...] code = IPF) 0 % N Automated Nhcsnprbmail1649-92-00 14:37:26 Test Item Value Reference Range Interpretation Comments Neutro Auto (test code = Neutro 65.8 % 36.0-70.0 Auto) Lymph Auto (test code = Lymph Auto) 25.5 % 12.0-44.0 [place] Auto (test code = [place] Auto) 7.3 % 0.0-11.0 Eos, Auto (test code = Eos, Auto) 0.7 % 0.0-7.0 Basophil Auto (test code = Basophil 0.5 % 0.0-2.0 Auto) Neutro Absolute (test code = Neutro 6.0 x10 1.6-7.4 Absolute) Lymph Absolute (test code = Lymph 2.34 x10 .50-4.60 Absolute) [place] Absolute (test code = [place] .67 x10 .00-1.20 Absolute) Eos Absolute (test code = Eos 0.06 x10 0.00-0.74 Absolute) Baso Absolute (test code = Baso 0.05 x10 0.00-0.21 Absolute) IG [id number] 14:37:26 Test Item Value Reference Range Interpretation Comments IG (test code = IG) 0.2 % 0.0-5.0 IG Abs (test code = IG Abs) 0 x10 N HCG Qualitative [id number] 14:34:08 Test Item Value Reference Range Interpretation [...] 72 hours. Lot # (test code = [id number] N Lot #) Expiration Dt (test 2020-03-14 N code = Expiration Dt) Neg Control (test Negative code = Neg Control) Pos Control (test Positive code = Pos Control) Internal QC (test Acceptable code = Internal QC) DRUGS OF ABUSE SCREEN [id number] 17:11:00 Test Item Value Reference Range Interpretation [...] = [place]) concentrati on: 300 ng/mL URINALYSIS [id number] 17:08:00 Test Item Value Reference Range Interpretation [...] (test code = MOD NONE BACU) URINALYSIS [id number] 17:00:00 Test Item Value Reference Range Interpretation [...] (test code = NONE BACU) HCG SERUM [id number] 16:52:00 Test Item Value Reference Range Interpretation Comments HCG SERUM QUAL (test code = HCGQL) NEGATIVE NEGATIVE - CT HEAD/BRAIN W/O [id number] 16:51:00 FAX: Theresa Fields MD Sheldon: STACEY St: REG Name: HEATHER HOPE [facility] : 1990 Age/S: 28/F [address] [facility] [place] Unit: [id number] Loc: K[place], [place]: [place] [id number] Acct: [id number] Dis Date: Status: REG ER PHONE #: [phone] Exam Date: 02/23/2019 1642 FAX #: [phone] Reason: SEIZURE EXAMS: CPT CODE: [id number] CT HEAD/BRAIN W/O CONT [id number] Dictation location: U19. CT HEAD WITHOUT CONTRAST. [...] Morrison M.D. CC: Theresa Fields MD Technologist: HEATHER DICKSON Trnscrd Dt/Tm: 02/23/2019 (1651) [id number].[email or web address] Orig Print D/T: S: 02/23/2019 (6714 PAGE 1 Signed ReportBASI METABOLIC [id number] 16:31:00 Test Item Value Reference Range Interpretation [...] CA) 8.8 mg/dl 8.0-10.5 N BASIC METABOLIC [id number] 16:26:00 Test Item Value Reference Range Interpretation [...] code = CA) mg/dl 8.0-10.5 CBC W/AUTO [id number] 16:15:00 Test Item Value Reference Range Interpretation [...] 3-60 N code = VLDL) RAPID PLASMA [id number] 10:31:00 Test Item Value Reference Range Interpretation Comments RAPID PLASMA REAGIN (test code = Nonreactive Nonreactive RPR) GLYCOSYLATED HEMOGLOBIN (HA1C)2018-12-07 10:05:00 Test Item Value Reference Range Interpretation Comments GLYCOSYLATED HEMOGLOBIN (HA1C) 5.8 % TOT HB 4.5-6.2 N (test code = GLYHGB) [id number] 15:31:00 Test Item Value Reference Range Interpretation Comments ACETAMINOPHEN (test < 1 MCG/ML 10-30 L Acetamin ophen is code = ACET) possibly toxic at levels of: 1. m ore than 150 MCG/ML 4 hours post kaylin stion. 2. more than 5 0 MCG/ML 12 hours post ingestion. [id number] 15:31:00 Test Item Value Reference Range Interpretation Comments SALICYLATE (test code = < 3 MG/DL 0-20 N Refe rence Range: BOSSMAN) Analgesic...... ...... ...... < 10 mg /dl Therapeutic.... ...... ...... 15-20 mg /dl Mild Toxicity....... ...... . > 30 mg/dl Severe Toxicity....... ..... > 60 mg/dl UA RFLX [id number] 14:18:00 Test Item Value Reference Range Interpretation [...] Clean Catch (test code = UASPEC) UA [id number] 14:18:00 Test Item Value Reference Range Interpretation Comments UA WBC (test code = WBCU) < 10 #/hpf <10 UA RBC (test code = RBCU) 0-2 #/hpf NONE SEEN A UA BACTERIA (test code = BACU) RARE #/hpf NONE SEEN UA SQUAMOUS CELLS (test code = 0 - 20 #/lpf <100 SQU) UA MUCUS (test code = MUCU) 1+ #/lpf NONE SEEN BASIC METABOLIC [id number] 14:16:00 Test Item Value Reference Range Interpretation [...] 9.4 MG/DL 8.7-10.5 N CA) HEPATIC FUNCTION [id number] 14:16:00 Test Item Value Reference Range Interpretation [...] 50-136 N TOTAL (test code = ALKP) [id number] 14:16:00 Test Item Value Reference Range Interpretation Comments CK (test code = CKT) 87 Units/L 26-192 N [id number] 14:16:00 Test Item Value Reference Range Interpretation Comments ALCOHOL (test code = < 3 MG/DL 0-10 N 0 - 10: Should be ALC) interpreted as NEGATIVE. 11 - 50: None to mild euphoria. 51 - 100: Mild influence on vision and dark adapta tion. > 80: Legal intoxication; D epression of AUTOMOTIVE HEAVY MECHANIC; Increasing degr ee of poisoning. > 400: Fatalities repo rted. Results are for medical purposes only a nd not forlegal or emp loyment evaluative purp oses. BASIC METABOLIC [id number] 14:09:00 Test Item Value Reference Range Interpretation [...] 9.4 MG/DL 8.7-10.5 N CA) HEPATIC FUNCTION [id number] 14:09:00 Test Item Value Reference Range Interpretation [...] TOTAL (test Units/L 50-136 code = ALKP) [id number] 14:09:00 Test Item Value Reference Range Interpretation Comments CK (test code = CKT) Units/L 26-192 [id number] 14:09:00 Test Item Value Reference Range Interpretation Comments ALCOHOL (test code = ALC) MG/DL 0-10 LACTIC ACID [id number] 13:50:00 Test Item Value Reference Range Interpretation Comments LACTIC ACID POC 0.97 MMOL/L 0.90-1.70 N Performed by certified (test code = LACTP) 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 Results of scre en may not be usedin crimi nal justice, job performance or professionalcre dential review, or infa nt custody issues. Negativ e [place] Level ng/ml ------- ----- Cocaine 300 Methamp hetamine (Ecstacy) 500 Cannabinoids (THC) 50 Amphetamine 1000 Barbiturate s 200 Benzodia zepines 200 Opiat es 300 Ph encyclidine (PCP) 25 UR HCG [id number] 13:39:00 Test Item Value Reference Range Interpretation [...] using aquantitative h CG assay. UA RFLX [id number] 13:38:00 Test Item Value Reference Range Interpretation [...] Clean Catch (test code = UASPEC) UA [id number] 13:38:00 Test Item Value Reference Range Interpretation Comments UA WBC (test code = WBCU) #/hpf <10 UA RBC (test code = RBCU) #/hpf NONE SEEN UA SQUAMOUS CELLS (test code = SQU) #/lpf <100 UA RFLX [id number] 13:38:00 Test Item Value Reference Range Interpretation [...] Clean Catch (test code = UASPEC) UA [id number] 13:38:00 Test Item Value Reference Range Interpretation Comments UA WBC (test code = WBCU) #/hpf <10 UA RBC (test code = RBCU) #/hpf NONE SEEN UA SQUAMOUS CELLS (test code = SQU) #/lpf <100 CBC W/AUTO [id number] 13:26:00 Test Item Value Reference Range Interpretation [...] = BA#) 0.05 x10 3/uL 0.0-0.2 N [id number] 19:07:00 Test Item Value Reference Interpretation Comments Range LEVETIRACETAM 28.7 ug/mL 10.0-40.0 This test was developed and (test code = its performance LEVTAM) characteristics determined by [facility]. It has not been cleared orappro froylan by the Food and Drug Administration. Performed At: [facility] [address] [facility] [place], [place] [id number] ra Larissa MENDOZA Ph:[phone] BASIC METABOLIC [id number] 04:58:00 Test Item Value Reference Range Interpretation [...] code = 8.9 MG/DL 8.7-10.5 N CA) [id number] 04:58:00 Test Item Value Reference Range Interpretation Comments MAGNESIUM (test code = MAG) 1.9 MG/DL 1.8-2.4 N CBC W/AUTO [id number] 04:08:00 Test Item Value Reference Range Interpretation [...] 0.0-0.2 N NRBC#) - MRI BRAIN W/O [id number] 13:51:00 Patient Name: HEATHER HOPE Unit No: [id number] EXAMS: CPT CODE: [id number] MRI BRAIN W/O CONTRAST 07675 Reason: sz INDICATION: Seizure COMPARISON: CT brain, [...] until the patient can hold still. at 1355 Reported and signed by: Lashell Anderson MD CC: Fanny Knowles DO; Jacob Gutierrez MD Technologist: Andre Self MRI Trscrpt Dt/ (0019)t.DW6 Orig Print D/T: S: 09/17/2018 (8061) [facility] CntNAME: YOONHEATHER NOVEMBER [address] [facility] PHYS: [place] [address] : 1990 AGE: 27 SEX: F LOC: D.D313 1 PHONE #: [phone] EXAM DATE: 09/17/2018 STATUS: ADM IN FAX #: RAD NO: DC Dt: PAGE 1 Signed [id number] 07:25:00 Test Item Value Reference Range Interpretation Comments PROLACTIN (test code = 24.6 ng/mL 4.8-23.3 H Perfo rmed At: HD PROLAC) [facility] [address] [id number] Sb Man MD Ph:[phone] UA RFLX MICROSCOPIC [id number] 19:02:00 Test Item Value Reference Range Interpretation [...] UACULT) URINE SOURCE: Clean CatchUA RFLX MICROSCOPIC [id number] 18:56:00 Test Item Value Reference Range Interpretation [...] (test code = UACULT) URINE SOURCE: Clean [id number] 15:56:00 Test Item Value Reference Range Interpretation Comments CK (test code = CKT) 34 Units/L 26-192 N BASIC METABOLIC [id number] 12:57:00 Test Item Value Reference Range Interpretation [...] code = 8.6 MG/DL 8.7-10.5 L CA) [id number] 12:57:00 Test Item Value Reference Range Interpretation Comments CK (test code = CKT) 32 Units/L 26-192 N CBC W/AUTO [id number] 12:33:00 Test Item Value Reference Range Interpretation [...] 3/uL 0.0-0.2 N NRBC#) TOTAL IRON BINDING [id number] 05:50:00 Test Item Value Reference Range Interpretation Comments SERUM IRON (test code = IRON) 17 MCG/DL 50-170 L TOTAL IRON BINDING CAPACITY (test 363 MCG/DL 280-400 N code = TIBC) IRON SATURATION (test code = 5 % 15-50 L FESAT) [id number] 05:50:00 Test Item Value Reference Range Interpretation Comments FERRITIN (test code = LULI) 11 NG/ML 3-105 N HEPATIC FUNCTION [id number] 05:32:00 Test Item Value Reference Range Interpretation [...] code = ALKP) - CT HEAD/BRAIN W/O [id number] 20:19:00 Patient Name: HEATHER HOPE Unit No: [id number] EXAMS: CPT CODE: [id number] CT HEAD/BRAIN W/O CONT 76538 Reason: seizure TECHNIQUE: Contiguous 5 mm images [...] Cristiane Heath Technologist: Edel BURNS Trscrpt Dt/ (2018)Tristan Orig Print D/T: S: 09/14/2018 (2021) CTDI: DLP: [facility] NAME: HEATHER HOPE [id number] [facility] PHYS: NGA. - Keanu Váz[place] [address] : 1990 AGE: 27 SEX: F LOC: D.KIN PHONE#: [phone] EXAM DATE: 09/14/2018 STATUS: REG ER FAX #: RAD NO: DC Dt: PAGE 1 Signed Report- XR CHEST 1 [id number] 20:18:00 Patient Name: HEATHER HOPE Unit No: [id number] EXAMS: CPT CODE: [id number] XR CHEST 1 V 53918 Reason: screen for pneumonia FINDINGS: Single view ofthe chest shows normal heart size and pulmonary vasculature. The lungs are clear bilaterally. There is no focal infiltrate, pleural effusion or pneumothorax. IMPRESSION: No a cute cardiopulmonary findings at 2018 Reported and signed by: Lashell Jimenez MD CC: Keanu Vázquez MD; Cristiane Heath Technologist: Edel BURNS Trscrpt Dt/ (2017)tDAINA.DKW Orig PrintD/T: S: 09/14/2018 (2020) [facility] NAME: HEATHER HOPE [address] [facility] PHYS: NGA. - Keanu Váz[place] [address] : 1990 AGE: 27 SEX: F LOC: RichNER PHONE #: [phone] EXAM DATE: STATUS: REG ER FAX #: RAD NO: DC Dt: PAGE 1 Signed ReportHCG SERUM [id number] 20:04:00 Test Item Value Reference Range Interpretation [...] using aquantitative h CG assay. BASIC METABOLIC [id number] 19:51:00 Test Item Value Reference Range Interpretation [...] 9.3 MG/DL 8.7-10.5 N CA) CBC W/AUTO [id number] 19:46:00 Test Item Value Reference Range Interpretation [...] BA#) 0.05 x10 3/uL 0.0-0.2 N BLOOD [id number] 10:00:00 Test Item Value Reference Range Interpretation Comments CULTURE (BEAKER) (test No growth in 5 days code = 1095) HCG, QUANTITATIVE, [id number] 15:37:00 Test Item Value Reference Range Interpretation Comments GONADOTROPIN, CHORIONIC (HCG) 55976 mIU/mL 0-10 H QUANT (BEAKER) (test code = 649) Non- Females: <10 mIU/mL Females: Gestation Age Reference Range(mIU/mL) 0.2-1 Week 5-50 1-2 Weeks 50-500 2-3 Weeks 100-5,000 3-4Weeks 500-10,000 4-5 Weeks 1,000-50,000 5-6 Weeks 10,000-100,000 6-8 Weeks 15,000-200,000 2-3 Months 10,000-100,000COMPREHENSIVE METABOLIC [id number] 15:10:00 Test Item Value Reference Range Interpretation [...] PATIEN TS. CBC W/PLT COUNT & AUTO [id number] 14:53:00 Test Item Value Reference Range Interpretation [...] (test code = 2801) U/S, , FIRST [id number] 07:52:00Reason for exam:-> Reason for exam:->please include [...] 1 day. An embryonic pole is evident. [place]-rump length measures 0.63 cm, correlating with estimated [...] Garrido Verified Date/Time: 05/17/2017 07:52:37 Reading Location: [facility] C013X Ortho Consult Reading Room PREGNANCY SCREEN, [id number] 05:28:00 Test Item Value Reference Range Interpretation Comments TEST URINE (BEAKER) (test Positive code = 583) MR, BRAIN, WITHOUT [id number] 18:54:00Reason for exam:->Stroke evaluationFINAL REPORT MRI brain [...] limited, but otherwise unremarkable noncontrast examination. Signed: Brandon Parraort Verified Date/Time: 05/15/2017 18:54:11 Reading Location: [facility] Radiology Reading Room EEG AWAKE AND [id number] 12:08:00Reason for exam:->? nonconvulsive statusDATE OF TEST: 05/15/2017DATE OF REPORT 05/15/2017 ACC: [id number] EE Start time: 1034 Stop time: 1054 ICD-10: R56.9CPT Code: 92576ZWFIPPM: 26 y/o woman with epilepsy found down [...] recordings.Marika Smith M.D.Neurophysiology FellowSwathi Harper M.D.Neurophysiology Attending [id number] 04:27:00 Test Item Value Reference Range Interpretation Comments PROCALCITONIN (BEAKER) (test code 0.17 ng/mL <0.05 H = 3036) SEPSIS RISK (ng/mL)Low: 0.05-0.50Intermediate: 0.51-2.00High: >=[id number] 03:15:00 Test Item Value Reference Range Interpretation Comments PHOSPHORUS (BEAKER) (test code = 3.1 mg/dL 2.3-4.7 604) [id number] 03:15:00 Test Item Value Reference Range Interpretation Comments MAGNESIUM (BEAKER) (test code = 1.9 mg/dL 1.6-2.6 627) BASIC METABOLIC [id number] 03:15:00 Test Item Value Reference Range Interpretation [...] code = 380) LACTIC ACID, VENOUS, WHOLE [id number] 03:09:00 Test Item Value Reference Range Interpretation Comments LACTATE BLOOD VENOUS (2) (BEAKER) 0.6 mmol/L 0.5-2.2 (test code = 2872) Effective 10/17/2015: Units/Reference Range ChangeNew: 0.5-2.2 mmol/L Previous: 5-20 mg/dLPROTHROMBIN TIME/[id number] 03:07:00 Test Item Value Reference Range Interpretation [...] = 2801) RAD, CHEST, 1 VIEW, NON [id number] 01:06:00Reason for exam:->possible infectionShould this be performed at the bedside?->YesFINAL REPORT History: Infection. Comparison: None. Findings: A single view of the chest is submitted. The cardiomediastinal contours are unremarkable. There is no focal consolidation, pneumothorax, large pleural effusion or evidence of overt pulmonary edema. There is no acute bony abnormality. Impression: No acute abnormality. Signed: Shbanam Zhu Verified Date/Time: 05/15/2017 01:06:06 Reading Location: [address] Reading Room
--- OUTSIDE RECORDS SUMMARY | 2019-12-14 19:37 | XMS REPORT | Summary of Care ---
:1990 Author Organization [facility] - Health Address [address] [place] [address] Care Team Providers Name Role Phone Doctor Unassigned, [place] Insurance Hmo Unavailable Denilson Lorenz MD Primary Care Provider Encounter Details Date Type Department Care Team Description 11/29/2019 Orders Only [facility] Doctor Unassigned, No [address] [facility] Name [place] [phone] [place] [address] Allergies No Known Allergiesdocumented as of this encounter (statuses as of 11/29/2019) Medications Medication Sig Dispensed Refills Start Date [...] as of this encounter (statuses as of 11/29/2019) Active Problems Problem Noted Date Abnormal vaginal [...] as of this encounter (statuses as of 11/29/2019) Resolved Problems Problem Noted Date Resolved Date [...] as of this encounter (statuses as of 11/29/2019) Immunizations Name Administration Dates Next Due Influenza [...] Treatment Date Type Specialty Care Team Description 12/16/2019 Office Visit Family Medicine Don Lorenz MD [address] [place] [address] [phone] Health Maintenance Due Date Last Done Comments Depression Screening 2001 INFLUENZA VACCINE (Season 02/14/2020 06/22/2017 Ended) PAP SMEAR 07/13/2021 07/13/2018, 06/22/2017 DTaP,Tdap,and Td Vaccines (2 10/23/2027 10/22/2017 - Td) PNEUMOCOCCAL 0-64 YEARS Aged Out No longe r eligible based COMBINED SERIES on patient's age to complete this to [facility] documented as of this encounter Procedures Procedure Name Priority Date/Time Associated Diagnosis Comme nts CONSENT/REFUSAL FOR Routine 11/29/2019 1:45 PM CDT DIAGNOSIS AND TREATMENT documented in this encounter Results Not on filedocumented in this encounter Insurance Payer Benefit Plan / Group Subscriber ID Effective Dates Phone Address Type CIGERLINDA CIGERLINDA II [id number] 2017-Present H [place]/PPO/POS documented as of this encounter
--- OUTSIDE RECORDS SUMMARY | 2019-12-14 19:37 | XMS REPORT | Summary of Care ---
:1990 Author Organization [facility] Address [address] [place] [address] Care Team Providers Name Role Phone Doctor Unassigned, [place] Insurance Hmo Unavailable Denilson Lorenz MD Primary Care Provider Reason for Visit Reason Comments Assessment Encounter Details Date Type Department Care Team Description 11/29/2019 Telephone [facility] Women's Alda Salinas PA-C Assessment [facility] [place] [address] [address] [place] [address] [place] [address] [phone] Allergies No Known Allergiesdocumented as of this [...] Resolved Date (spontaneous vaginal delivery) 12/13/201701/04 Liveborn infant by vaginal delivery 12/13/201712/14 37 weeks gestation [...] Office Visit Family Medicine Don Lorenz MD [address] [place] [address] [phone] Health Maintenance Due Date Last Done Comments Depression Screening 2001 INFLUENZA VACCINE (Season 02/14/2020 06/22/2017 Ended) PAP SMEAR 07/13/2021 07/13/2018, 06/22/2017 DTaP,Tdap,and Td Vaccines (2 10/23/2027 10/22/2017 - Td) PNEUMOCOCCAL 0-64 YEARS Aged Out No longe r eligible based COMBINED SERIES on patient's age to complete this to [facility] documented as of this encounter Results Not on filedocumented in this encounter Insurance Payer Benefit Plan / Group Subscriber ID Effective Dates Phone Address Type CIGALDA CIGALDA II [id number] 2017-Present H [place]/PPO/POS documented as of this encounter
--- OUTSIDE RECORDS SUMMARY | 2019-12-14 19:39 | XMS REPORT | Summary of Care ---
:1990 Author Organization [facility] - [facility] Address [address] [place] [address] Care Team Providers Name Role Phone Doctor Unassigned, [place] [employer] Unavailable Denilson Lorenz MD Primary Care Provider Reason for Referral MRI/CAT Scan (STAT) Status Reason Specialty Diagnoses / Referred By Referred To Procedures Contact Contact New Request Diagnostic Diagnoses Abdominal pain, unspecified abdominal location [place], Radiology Procedures CT ABDOMEN PELVIS W CONTRAST Folusho F, FIRST PRESS OPERATOR [address] [facility] [address] [place] [id number] Reason for Visit Reason Comments Sore Throat Abdominal Pain Body Aches Auth/Cert Status Reason Specialty Diagnoses / Referred By Referred To Procedures Contact Contact Emergency Medicine [facility] Em ergency Dept [address] [place] [address] Fax: Encounter Details Date Type Department Care Team Description 11/29/2019 Emergency ADC-Emergency [place] Folusho Abdominal pain, unspecified abdominal location (Primary Dx); Department F, FIRST PRESS OPERATOR Dehydration [address] [place] [id number] [place] [address] [phone] Allergies No Known Allergiesdocumented as of this [...] Travel End No recent travel history available. COVID-19 Exposure Response Date Recorded In the last month, have you been in contact with No / Unsure 11/29/2019 1:46 PM CDT someone who was confirmed or suspected to have Coronavirus / COVID-19? documented as of this encounter Last Filed Vital Signs Vital Sign Reading Time Taken Comments Blood Pressure 117/77 11/29/2019 5:55 PM CDT Pulse 83 11/29/2019 5:55 PM CDT Temperature 37 C (98.6 F) 11/29/2019 4:55 PM CDT Respiratory Rate 16 11/29/2019 5:55 PM CDT Oxygen Saturation 100% 11/29/2019 5:55 PM CDT Inhaled Oxygen Concentration - - Weight 64.9 kg (143 lb) 11/29/2019 1:56 PM CDT Height 160 cm (5' 3") 11/29/2019 1:56 PM CDT Body Mass Index 25.33 11/29/2019 1:56 PM CDT documented in this encounter Discharge Instructions Brittany Salvador FNP - 11/29/2019 You were seen today for Chief Complaint Patient presents with Sore Throat Abdominal Pain Body Aches Your ER diagnosis was ICD-10-CM ICD-9-CM 1. Abdominal pain, unspecified abdominal location R10.9 789.00 2. Dehydration E86.0 276.51 NO LIFE-THREATENING FINDINGS ON TODAY'S EXAM. YOUR PRESCRIPTIONS : Medication List ASK your doctor about these medications ibuprofen 600 mg tablet Commonly known as: IBU Take 1 tablet by mouth every 6 (six) hours as needed for Pain (scale 1-3) or Pain (scale 4-6). levETIRAcetam 750 mg tablet Commonly known as: KEPPRA Take 2 tablets by mouth 2 (two) times daily. medroxyPROGESTERone 10 mg tablet Commonly known as: CYCRIN TAKE 1 TABLET BY MOUTH EVERY DAY perampanel 4 mg Tab Commonly known as: FYCOMPA PROZAC ORAL rufinamide 400 mg tablet Commonly known as: BANZEL Take 1 tablet by mouth 2 (two) times daily with meals. ER precautions and follow up : 1. Return to ER if your symptoms should worsen or fail to improve within 72 hours. 2. The care provided in the emergency room was for acute problems only. 3. You should follow up with your primary care provider within 72 hours. 4. Fill and take all your medications as prescribed. 5. Make sure you are staying adequately hydrated. Busque attencion immediatamente si usted tiene los sitomas sigue, vuelve peor o si hay sitomas nuevas o para cualquiera preoccupacion incluyendo dolor del pecho, falta aire, se siente debile, mas fievre, mas dolor, nausea, vomitando, sangrando que no es normal, confusion, baja or pierdas conciencia. FOLLOW-UP RECOMMENDATIONS: RECOMMEND FOLLOW-UP WITH A PRIMARY CARE PROVIDER OR SPECIALIST IN 2-5 DAYS, ESPECIALLY IF NO IMPROVEMENT IN SYMPTOMS. MAY FOLLOW-UP WITH A PROVIDER OF YOUR CHOICE, SUCH : 1. A PHYSICIAN OF YOUR CHOICE 2. [facility], . LOCATIONS IN [facility] 3. [facility], [address], [place]; [phone] OR, IF YOU WISH TO FOLLOW-UP WITHIN THE [facility], MAY TRY THESE OPTIONS (CLINIC APPOINTMENTS AVAILABLE ON GDPH-SS-PZAN BASIS): 1. SCHEDULE AN APPOINTMENT ONLINE AT [email or web address][facility] 2. OR CALL THE [facility] AT OR 3. OR CALL YOUR [facility] PHYSICIAN'S OFFICE DIRECTLY IF YOU ARE ALREADY AN ESTABLISHED [facility] PATIENT. documented in this encounter Plan of Treatment Date Type Specialty Care Team Description 12/16/2019 Office Visit Family Medicine Don Lorenz MD [address] [place] [address] [phone] Health Maintenance Due Date Last Done Comments Depression Screening 2001 INFLUENZA VACCINE (Season 02/14/2020 06/22/2017 Ended) PAP SMEAR 07/13/2021 07/13/2018, 06/22/2017 DTaP,Tdap,and Td Vaccines (2 10/23/2027 10/22/2017 - Td) PNEUMOCOCCAL 0-64 YEARS Aged Out No longe r eligible based COMBINED SERIES on patient's age to complete this to [facility] documented as of this encounter Procedures Procedure Name Priority Date/Time Associated Diagnosis Comme nts CT ABDOMEN PELVIS W STAT 11/29/2019 4:09 Abdominal pain, R esults for this CONTRAST PM CDT unspecified procedure are i n abdominal location the resul ts section. POCT TEST Routine 11/29/2019 2:28 Abdominal pain, R esults for this PM CDT unspecified procedure are i n abdominal location the resul ts section. COVID-19 (ID NOW STAT 11/29/2019 2:25 Abdominal pain, Resu lts for this RAPID TESTING) PM CDT unspecified procedure are in abdominal location the resul ts section. CBC WITH DIFFERENTIAL STAT 11/29/2019 2:25 Abdominal pain, Results for this PM CDT unspecified procedure are i n abdominal location the resul ts section. URINALYSIS STAT 11/29/2019 2:25 Abdominal pain, Results for this PM CDT unspecified procedure are i n abdominal location the resul ts section. CBC WITH DIFFERENTIAL Routine 11/29/2019 2:25 Abdominal pain, Results for this PM CDT unspecified procedure are i n abdominal location the resul ts section. COMP. METABOLIC PANEL STAT 11/29/2019 2:25 Abdominal pain, Results for this (67105) PM CDT unspecified procedure are i n abdominal location the resul ts section. LIPASE STAT 11/29/2019 2:25 Abdominal pain, Results for this PM CDT unspecified procedure are i n abdominal location the resul ts section. NOTICE OF PRIVACY Routine 11/29/2019 1:51 PRACTICES PM CDT documented in this encounter Results CT ABDOMEN PELVIS W CONTRAST (11/29/2019 4:09 PM CDT) Specimen Narrative Performed At CT Abdomen and Pelvis with intravenous c ontrast. PACS/VR/DOSE CLINICAL HISTORY: Abdominal pain. Fever. Nausea, vomiting. Abscess suspected. DOSE: Up-to-date CT equipment and radiation dose reduc tion techniques were employed. CTDIvol: 8.53 mGy. DLP: 405 mGy-cm. TECHNIQUE : Contiguous axial imaging fro m the level of the lung bases through the pubic symphysis were perform ed after the uncomplicated administration of Omnipaque contrast mat erial. Coronal and sagittal reconstructions were obtained. Auto mA and/or iterativ e reconstruction were used to reduce radiation dose. FINDINGS: Comparison is made with 019 study. Lower lungs: Clear. No pleural effusion or pericardial effusion. Short sliding hiatal hernia noted. Liver, Gallbladder and Spleen: Liver is 12.6 cm and sp shantanu is 12 x 3.5 cm in size. No focal lesions detected in th e liver or in the spleen. No calcified gallstones. Biliary ducts and the pancreatic duct appear of normal size. Peritoneum: No free air or free fluid. No lymphadenopathy. Pancreas and Adrenals: Unremarkable pa ncreas and adrenal glands. Kidneys and Ureters: No visible calculi in the renal collecting systems. No hydroureter or hydronephrosis. No enh ancing kidney lesions. Vessels: Normal. Retroperitoneum: No abnormal fluid or ly mphadenopathy. Bowel: No acute findings. Mild constipat ion noted. Normal appendix is visualized. Bladder and Reproductive Organs: Grossly unremarkable unopacified urinary bladder. Cystic lesions in the ovaries n oted, none larger than 1.5 cm in size, consistent with physiologic change s. Minimal free fluid in the cul-de-sac is also consistent with physi ologic changes. Bones: Unremarkable. Soft tissues: Unremarkable. CONCLUSION: 1. No acute findings detected in CT scan of abdomen and pelvis. 2. Small cysts in the ovaries and small amount of flui d in the cul-de-sac likely physiologic changes. Procedure Note [facility], Radiant Results Inft User - 2019 4:[address] Abdomen and Pelvis with intravenous contrast. CLINICAL HISTORY: Abdominal pain. Fever. Nausea, vomiting. Abscess suspected. DOSE: Up-to-date CT equipment and radiat ion dose reduction techniques were employed. CTDIvol: 8.53 mGy. DLP: 405 mGy-cm. TECHNIQUE : Contiguous axial imaging fro m the level of the lung bases through the pubic symphysis were perform ed after the uncomplicated administration of Omnipaque contrast mat erial. Coronal and sagittal reconstructions were obtained. Auto mA a nd/or iterative reconstruction were used to reduce radiation dose. FINDINGS: Comparison is made with 019 study. Lower lungs: Clear. No pleural effusion or pericardial effusion. Short sliding hiatal hernia noted. Liver, Gallbladder and Spleen: Liver is 12.6 cm and spleen is 12 x 3.5 cm in size. No focal lesions detected in th e liver or in the spleen. No calcified gallstones. Biliary ducts and the pancreatic duct appear of normal size. Peritoneum: No free air or free fluid. No lymphadenopathy. Pancreas and Adrenals: Unremarkable infante creas and adrenal glands. Kidneys and Ureters: No visible calculi in the renal collecting systems. No hydroureter or hydronephrosis. No enh ancing kidney lesions. Vessels: Normal. Retroperitoneum: No abnormal fluid or ly mphadenopathy. Bowel: No acute findings. Mild constipat ion noted. Normal appendix is visualized. Bladder and Reproductive Organs: Grossly unremarkable unopacified urinary bladder. Cystic lesions in the ovaries n oted, none larger than 1.5 cm in size, consistent with physiologic change s. Minimal free fluid in the cul-de-sac is also consistent with physi ologic changes. Bones: Unremarkable. Soft tissues: Unremarkable. CONCLUSION: 1. No acute findings detected in CT scan of abdomen and pelvis. 2. Small cysts in the ovaries and small amount of fluid in the cul-de-sac likely physiologic changes. Performing Organization Address City/[facility]/Zipcode Phone Number PACS/VR/DOSE POCT Test (11/29/2019 2:28 PM CDT) Pathologist [facility] christopher POCT PREG negative On board controls acceptable present with C Line Specimen Urine - URINE, CLEAN CATCH COVID-19 (ID NOW RAPID TESTING) (11/29/2019 2:25 PM CDT) SARS-CoV-2 Rapid ID Not Detected Not Detected [facility] Specimen Swab - NASOPHARYNGEAL SWAB Narrative Performed At IN NOW COVID-19 Assay is an isothermal nucleic [facility] acid amplification test intended for the qualitative detection of nucleic acid from SARS-CoV-2 viral RNA in nasopharyngeal (LABORER HEADING) specimens. It is used under Emergency Use Authorization (EUA) by FDA. The limit of detection (LOD) of the assay is 125 Genome Equivalents/mL. A positive result is indicative of the presence of SARS-CoV-2 RNA. Clinical correlation with patient history and other diagnostic information is necessary to determine patient infection status. A negative (Not Detected) result does not preclude SARS-CoV-2 infection. In patients with clinical symptoms and other tests that are consistent with SARS-CoV-2 infection, negative results should be treated as presumptive negative and a new specimen should be tested with alternative PCR molecular test. Invalid: Please collect a new specimen for repeat patient testing if clinically indicated. Performing Organization Address City/[facility]/Zipcode Phone Number [facility] CLIA: [id number], [address] [place], [place] [address] CBC WITH DIFFERENTIAL (11/29/2019 2:25 PM CDT) [facility] christopher WBC 7.66 4.30 - 11.10 [facility] 10*3/L [facility] RBC 4.37 3.93 - 5.25 [facility] 10*6/L [facility] HGB 12.1 11.6 - 15.0 [facility] g/dL [facility] HCT 36.9 35.7 - 45.2 % [facility] MCV 84.4 80.6 - 95.5 fL [facility] MCH 27.7 25.9 - 32.8 pg [facility] MCHC 32.8 31.6 - 35.1 [facility] g/dL [facility] RDW-SD 47.7 39.0 - 49.9 fL [facility] RDW-CV 15.9 (H) 12.0 - 15.5 % [facility] PLT 279 166 - 358 [facility] 10*3/L [facility] MPV 9.4 (L) 9.5 - 12.9 fL [facility] NRBC/100 WBC 0.0 0.0 - 10.0 /100 [facility] WBCs [facility] NRBC x10^3 <0.01 10*3/L [facility] GRAN MAT (NEUT) % 64.7 % [facility] IMM GRAN % 0.40 % [facility] LYMPH % 25.6 % [facility] MONO % 7.2 % [facility] EOS % 1.4 % [facility] BASO % 0.7 % [facility] GRAN MAT x10^3(ANC) 4.96 1.88 - 7.09 [facility] 10*3/uL [facility] IMM GRAN x10^3 0.03 0.00 - 0.06 [facility] 10*3/uL [facility] LYMPH x10^3 1.96 1.32 - 3.29 [facility] 10*3/uL [facility] MONO x10^3 0.55 0.33 - 0.92 [facility] 10*3/uL [facility] EOS x10^3 0.11 0.03 - 0.39 [facility] 10*3/uL [facility] BASO x10^3 0.05 0.01 - 0.07 [facility] 10*3/uL [facility] Specimen Blood - VENOUS Performing Organization Address City/State/Zipcode Phone Number [facility] CLIA: [id number], [address] [place], [place] [address] Urinalysis (11/29/2019 2:25 PM CDT) Pathologist Sig nature APPEARANCE Cloudy (A) Clear [facility] COLOR Yellow Yellow [facility] PH 6.0 4.8 - 8.0 [facility] SP GRAVITY 1.025 1.003 - 1.030 [facility] GLU U QUAL Normal Normal [facility] BLOOD 3+ (A) Negative [facility] KETONES Negative Negative [facility] PROTEIN 30 mg/dL (A) Negative [facility] UROBILIN Normal Normal [facility] BILIRUBIN Negative Negative [facility] NITRITE Negative Negative [facility] LEUK BLAKE Negative Negative [facility] RBC/HPF >182 (H) 0 - 3 HPF [facility] WBC/HPF 0 0 - 5 HPF [facility] BACTERIA Negative Negative [facility] MUCOUS Slight (A) Negative LPF [facility] SQ EPITH 1 HPF [facility] Specimen Urine - URINE, CLEAN CATCH Performing Organization Address [facility] Phone Number [facility] CLIA: [id number], [address] [place] [address] Lipase, Serum (11/29/2019 2:25 PM CDT) Pathologist Sig nature LIPASE 35 0 - 220 U/L [facility] Specimen Blood - VENOUS Performing Organization Address [facility] Phone Number [facility] CLIA: [id number], [address] [place] [address] Complete Metabolic Panel (11/29/2019 2:25 PM CDT) NA 137 135 - 145 [facility] mmol/L [facility] K 3.8 3.5 - 5.0 [facility] mmol/L [facility] CL 107 98 - 108 mmol/L [facility] CO2 TOTAL 23 23 - 31 mmol/L [facility] AGAP 7 2 - 16 [facility] BUN 6 (L) 7 - 23 mg/dL [facility] GLUCOSE 89 70 - 110 mg/dL [facility] CREATININE 0.42 (L) 0.50 - 1.04 [facility] mg/dL [facility] TOTAL BILI 0.4 0.1 - 1.1 mg/dL [facility] CALCIUM 9.1 8.6 - 10.6 [facility] mg/dL [facility] T PROTEIN 7.8 6.3 - 8.2 g/dL [facility] ALBUMIN 4.5 3.5 - 5.0 g/dL [facility] ALK PHOS 75 34 - 122 U/L [facility] ALTv 29 5 - 35 U/L [facility] AST(SGOT) 32 13 - 40 U/L [facility] eGFR Calculation 177.2 mL/min/1.73m2 [facility] (Non[facility] LABORATORY [place]) eGFR Calculation 214.7 mL/min/1.73m2 [facility] () [facility] Specimen Blood - VENOUS Narrative Performed At [facility] of Glomerular Filtration Rate (GFR) [facility] and Staging of Kidney Disease* + + +- + | GFR (mL/min/1.73 m2) | With Kidney Damage | Without Kidney Damage + + +- + | >90 | Stage one | Normal + + +- + | 60-89 | Stage two | Decreased GFR + + +- + | 30-59 | Stage three | Stage three + + +- + | 15-29 | Stage four | Stage four + + +- + | <15 (or dialysis) | Stage five | Stage five + + +- + *Each stage assumes the associated GFR level has been in effect for at least three months. Stages 1 to 5, with or without kidney [...] tests). Performing Organization Address City/State/Zipcode Phone Number [facility] CLIA: [id number], [address] [place], [place] [address] documented in this encounter Visit Diagnoses Diagnosis Abdominal pain, unspecified abdominal lo cation - Primary Dehydration documented in this encounter Administered Medications Medication Order MAR Action Action Date Dose Rate Site iohexol (OMNIPAQUE 350 BULK-100 Given 11/29/2019 4:05 PM CDT 12 0 mL mL) injection 120 mL 120 mL, Intravenous, ONCE, 1 dose, 11/29/19 at 1615, Routine maalox:diphenhydrAMINE:lidocaine 2 % viscous Given 4:57 PM CDT 15 mL 1:1:1 (FIRST-MOUTHWASH BLM) oral suspension 15 mL 15 mL, Oral, ONCE, 1 dose, 11/29/19 at 1630, Routine morpHINE injection 4 mg Given 11/29/2019 4:55 PM CDT 4 mg 4 mg, Slow IV Push, ONCE, 1 dose, 11/29/19 at 1630, STAT NaCl 0.9% (NS) bolus infusion New Bag 11/29/2019 4:52 PM CDT 1,000 mL 999 mL/hr 1,000 mL at 999 mL/hr, 1,000 mL, IV Infusion, ONCE, 1 dose, 11/29/19 at 1630, STAT ondansetron (ZOFRAN (PF)) injection 4 mg Given 11/29/2019 4:54 PM CDT 4 mg 4 mg, Slow IV Push, ONCE, 1 dose, 11/29/19 at 1630, SUSAN documented in this encounter Insurance Payer Benefit Plan Subscriber ID Effective Dates Phone Address Type / Group EDELMIRA [place] [id number] [facility] xxxxxxxxx 2019-[facility] Medicaid COMM PLAN - STAR t MANAGED MEDICAID documented as of this encounter
[2019-12-14 20:18] VITALS: TEMP 98.9
[2019-12-14 20:19] VITALS: O2SAT 100
[2019-12-14 20:21] VITALS: BP 134/82
[2019-12-14 21:16] LABS: Urine White Blood Cell Casts OK
[2019-12-14 21:17] LABS: Blood Morphology Comment NOT SEEN (NOT SEEN); Platelet Estimate ADEQ
== END 2019-12-14 20:06 | disposition home or self-care (01) ==
LOC: ER 17:30
DX: G40.802 Other epilepsy, not intractable, without status epilepticus (principal)
CPT/HCPCS: 96365; 96361; 85025; 80048; 36415; 81025; 81003; 96375; 99284; J1953; J7030; J2405

== ENCOUNTER 2019-12-14 21:46 | Emergency (ER) | payer OTHER ==
--- OUTSIDE RECORDS SUMMARY | 2019-12-14 21:49 | XMS REPORT | Clinical Summary ---
:1990 Author Organization [facility] Address [address] [place] [address] Care Team Providers Name Role Phone Asked, [...] time period is included. Manual differential PERFORMED [facility] Neutrophils 51.0 39.0 - 69.0 % [facility] Lymphocytes 34.0 25.0 - 45.0 % [facility] Monocytes 13.0 (H) 0.0 - 10.0 % [facility] Eosinophils 2.0 0.0 - 5.0 % [facility] Basophils 0.0 0.0 - 1.0 % [facility] Metamyelocytes 0 % [facility] Promyelocytes 0 % [facility] Platelet slide review Sana adequate [facility] Anisocytosis Moderate [facility] Ovalocytes Moderate [facility] Enlarged platelets Moderate (A) [facility] Specimen Performing Organization Address City/State/Zipcode Phone Number [facility] DEPARTMENT OF PATHOLOGY AND [address] [place], [place] [phone] GENOMIC MEDICINE [facility] [address] [place] [address] CBC with platelet and differential (11/15/2019 4:30 AM CDT)Only the most recent of3 resultswithin the time period is included. Pathologist Sig nature WBC 7.99 4.50 - 11.00 k/uL [facility] RBC 4.06 (L) 4.20 - 5.50 m/uL [facility] HGB 10.8 (L) 12.0 - 16.0 g/dL [facility] HCT 34.1 (L) 37.0 - 47.0 % [facility] MCV 84.0 82.0 - 100.0 fL [facility] MCH 26.6 (L) 27.0 - 34.0 pg [facility] MCHC 31.7 31.0 - 37.0 g/dL [facility] RDW - SD 48.1 37.0 - 55.0 fL [facility] MPV 10.2 8.8 - 13.2 fL [facility] Platelet count 251 150 - 400 k/uL [facility] Nucleated RBC 0.00 /100 WBC [facility] Neutrophils 51.0 39.0 - 69.0 % [facility] Lymphocytes 34.0 25.0 - 45.0 % [facility] Monocytes 13.0 (H) 0.0 - 10.0 % [facility] Eosinophils 2.0 0.0 - 5.0 % [facility] Basophils 0.0 0.0 - 1.0 % [facility] Specimen Blood Performing Organization Address City/State/Zipcode Phone Number [facility] DEPARTMENT OF PATHOLOGY AND [address] [place] [phone] [address] Estimated GFR (11/15/2019 4:00 AM CDT)Only the most recent of3 resultswithin the time period is included. Estimated GFR >=90 mL/min/1.73 [facility] Comment: m2 HOSPITAL Catergory Units Interpretation G1 [...] Specimen Performing Organization Address City/State/Zipcode Phone Number [facility] DEPARTMENT OF PATHOLOGY AND [address] [place] [address] [phone] [address] Basic metabolic panel (11/15/2019 4:00 AM CDT)Only the most recent of2 results within the time period is included. Pathologist Sig nature Sodium 135 135 - 148 mEq/L [facility] Potassium 3.4 (L) 3.5 - 5.0 mEq/L [facility] Chloride 103 98 - 112 mEq/L [facility] CO2 21 (L) 24 - 31 mEq/L [facility] Anion gap 11@ANIO 7 - 15 mEq/L [facility] BUN 9 6 - 20 mg/dL [facility] Creatinine 0.48 (L) 0.50 - 0.90 mg/dL [facility] Glucose 95 65 - 99 mg/dL [facility] Calcium 9.2 8.3 - 10.2 mg/dL [facility] Specimen Blood Performing Organization Address City/State/Zipcode Phone Number [facility] DEPARTMENT OF PATHOLOGY AND [address] [place] [phone] Continuous EEG monitoring (11/15/2019 1:22 AM CDT) [...] binding capacity (11/13/2019 4:00 AM CDT) Pathologist [facility] nature Iron level 20 (L) 37 - 145 ug/dL [facility] Iron binding capacity 335 200 - 400 ug/dL [facility] % Saturation 6.0 (L) 15.0 - 38.0 % [facility] Specimen Blood Performing Organization Address City/[facility] Phone Number [facility] DEPARTMENT OF PATHOLOGY AND [address] [place], [place] [phone] Ferritin level (11/13/2019 4:00 AM CDT) Pathologist [facility] Ferritin level <13 (A) 13 - 150 ng/mL [facility] Specimen Blood Performing Organization Address City/[facility] Phone Number [facility] DEPARTMENT OF PATHOLOGY AND [address] [place] [phone] MRI Brain W Wo Contrast (11/13/2019 2:16 [...] or cuco-ictal hyperperfusion to localize seizure focus. [facility]-[id number] Procedure Note [facility], Radiology Results - 11/13/2019 6:14 AM CDT [...] or cuco-ictal hyperperfusion to localize seizure focus. [facility]-[id number] Performing Organization Address City/State/Zipcode Phone Number [facility] [address] [place] [address] ECG 12 lead (11/12/2019 9:10 PM CDT) Pathologist Sig nature Ventricular rate 81 [facility] Atrial rate 81 [facility] IA interval 164 [facility] QRSD interval 84 [facility] QT interval 386 [facility] QTC interval 448 [facility] MUSE P axis 1 52 [facility] MUSE QRS axis 1 4 [facility] MUSE T wave axis 13 [facility] MUSE EKG impression Normal sinus [facility] MUSE rhythm-Normal ECG-No previous ECGs available-Electronicall y Signed By Adrian Ibarra MD ([id number]) on 11/13/2019 8:07:25 PM Specimen Narrative Performed At This result has an attachment that is no t available. Performing Organization Address [facility] Phone Number [facility] MUSE [address] [place] [phone] Syphilis total antibody (11/12/2019 7:40 PM CDT) Pathologist [facility] Syphilis total Non-reactiveComment Non-reactive [facility] antibody : No serological HOSPITAL evidence of syphilis infection. Specimen Serum Performing Organization Address [facility] Phone Number [facility] DEPARTMENT OF PATHOLOGY AND [address] [place] [address] [phone] [address] HIV Ag/Ab combination (11/12/2019 7:40 PM CDT) Pathologist [facility] HIV Ag/Ab combination Non-reactive Non-reactive [facility] Specimen Blood Performing Organization Address [facility] Phone Number [facility] DEPARTMENT OF PATHOLOGY AND [address] [place] [address] [phone] [address] Homocystine, plasma (11/12/2019 7:40 PM CDT) Pathologist [facility] Homocysteine 10.3 0.0 - 15.0 [facility] Comment: umol/L HOSPITAL The risk for coronary vascular disease increases progr essively with homocysteine concentration. A 3.4 times greater risk is associated with a homocysteine concentration of greate r than 15.8 umol/L as compared to a concentration below 14.1 umol/L. Specimen Blood Performing Organization Address City/[facility]/Zipcode Phone Number [facility] DEPARTMENT OF PATHOLOGY AND [address] [place] [address] [phone] [address] MARCELINO titer (11/12/2019 7:40 PM CDT) Pathologist Sig nature MARCELINO titer 1:160 (A) Not-Detected [facility] MARCELINO pattern Homogeneous (A) Not-Detected [facility] Specimen Blood Performing Organization Address City/[facility]/Zipcode Phone Number [facility] DEPARTMENT OF PATHOLOGY AND [address] [place] [address] [phone] [address] Vitamin D 25 hydroxy level (11/12/2019 7:40 PM CDT) Vitamin D, 13.6 (L) 30.0 - 150.0 [facility] 25-hydroxy Comment: ng/mL HOSPITAL This assay reports [...] Blood Performing Organization Address City/State/Zipcode Phone Number [facility] DEPARTMENT OF PATHOLOGY AND [address] [place] [address] [phone] [address] Prolactin level (11/12/2019 7:40 PM CDT) Pathologist Sig nature Prolactin 22 5 - 23 ng/mL [facility] Specimen Performing Organization Address City/State/Zipcode Phone Number [facility] DEPARTMENT OF PATHOLOGY AND [address] [place] [address] [phone] [address] Sedimentation rate (11/12/2019 7:40 PM CDT) Pathologist [facility] Sedimentation rate 9 0 - 20 mm/hr [facility] Specimen Blood Performing Organization Address City/[facility] Phone Number [facility] DEPARTMENT OF PATHOLOGY AND [address] [place] [address] [place] [phone] Rheumatoid factor (11/12/2019 7:40 PM CDT) Pathologist [facility] Rheumatoid factor <10 0 - 13 IU/mL [facility] Specimen Blood Performing Organization Address [facility] Phone Number [facility] DEPARTMENT OF PATHOLOGY AND [address] [place] [address] [place] [phone] C-reactive protein (11/12/2019 7:40 PM CDT) Pathologist [facility] CRP <0.30 0.00 - 0.50 mg/dL [facility] Specimen Blood Performing Organization Address [facility] Phone Number [facility] DEPARTMENT OF PATHOLOGY AND [address] [place] [phone] MARCELINO (11/12/2019 7:40 PM CDT) MARCELINO screen Positive (A) Negative [facility] Comment: HOSPITAL Test performed using NOVA Lite DAPI MARCELINO kit (Indirect Immunofluorescence Assay) for Anti-Nuclear Antibody on VisionGate[employer]-Lyser 160 Analyzer. Specimen Blood Performing Organization Address [facility] Phone Number [facility] DEPARTMENT OF PATHOLOGY AND [address] [place] [address] Thyroid stimulating hormone (11/12/2019 7:40 PM CDT) Pathologist [facility] TSH 2.21 0.27 - 4.20 uIU/mL [facility] Specimen Blood Performing Organization Address [facility] Phone Number [facility] DEPARTMENT OF PATHOLOGY AND [address] [place] [address] [place] [phone] T4, free (11/12/2019 7:40 PM CDT) Pathologist [facility] T4, free 1.2 0.9 - 1.7 ng/dL [facility] Specimen Blood Performing Organization Address City/[facility] Phone Number [facility] DEPARTMENT OF PATHOLOGY AND [address] [place] [address] [phone] [address] Folate level (11/12/2019 7:40 PM CDT) Pathologist [facility] Folate 9.3 4.8 - 24.2 ng/mL [facility] Specimen Serum Performing Organization Address [facility] Phone Number [facility] DEPARTMENT OF PATHOLOGY AND [address] [place] [address] [phone] [address] Vitamin B12 level (11/12/2019 7:40 PM CDT) [facility] Vitamin B12 466 211 - 946 [facility] Comment: pg/mL HOSPITAL Significant overlap exists between normal and deficien cy states. However, most patients with deficiencies will have Ser um B12 <200 pg/mL. Specimen Serum Performing Organization Address [facility] Phone Number [facility] DEPARTMENT OF PATHOLOGY AND [address] [place] [address] [phone] [address] Creatine kinase, total (CPK) (11/12/2019 7:40 PM CDT) Pathologist [facility] Creatine kinase 56 26 - 192 U/L [facility] Specimen Performing Organization Address [facility] Phone Number [facility] DEPARTMENT OF PATHOLOGY AND [address] [place] [address] [phone] [address] Cortisol level, random (11/12/2019 7:40 PM CDT) Pathologist [facility] Cortisol, random 2 ug/dL [facility] Comment: HOSPITAL Reference Ranges are not established for non-timed Cor tisol levels. Reference Range for Timed Cortisol: 6 - 10 AM 6 - 18 ug/d l 4 - 8 PM 3 - 11 ug/ dl Specimen Blood Performing Organization Address [facility] Phone Number [facility] DEPARTMENT OF PATHOLOGY AND [address] [place] [address] [phone] [address] [address] Cervical Spine Wo Contrast (11/12/2019 6:12 [...] subluxation identif ied in the cervical spine. [facility]-[id number] Procedure Note Interface, Radiology Results Incoming - [...] subluxation identif ied in the cervical spine. [facility]-[id number] Performing Organization Address City/State/Zipcode Phone Number [facility] [address] [place] [address] CT Maxillofacial Wo Contrast (11/12/2019 6:09 PM [...] unre markable. The paranasal sinuses are clear. [facility]-[id number] Procedure Note Interface, Radiology Results Incoming - [...] unre markable. The paranasal sinuses are clear. [facility]-[id number] Performing Organization Address City/State/Zipcode Phone Number [facility] [address] [place] [address] CT Head Wo Contrast (11/12/2019 6:09 PM [...] IMPRESSION: No acute intracranial abnormality identi fied. [facility]-[id number] Procedure Note Interface, Radiology Results Incoming - [...] IMPRESSION: No acute intracranial abnormality identi fied. [facility]-[id number] Performing Organization Address [facility] Phone Number [facility] [address] [place] [address] XR Chest 1 Vw Portable (11/12/2019 5:35 PM CDT) Specimen Narrative Performed At EXAMINATION: XR CHEST 1 VW PORTABLE [facility]: SOB XR CHEST 1 VW PORTABLE images are subm itted COMPARISON: NONE FINDINGS: The cardiac silhouette is normal in size. The pulmonar y vasculature is within normal limits. The lung zones have no focal are a of consolidation. There is no pleural effus ion or pneumothorax. IMPRESSION: 1. There is no acute cardiopulmonary dis ease. [id number] Procedure Note Hm Interface, Radiology Results Incoming [...] There is no acute cardiopulmonary dis ease. [id number] Performing Organization Address [facility] Phone Number [facility] [address] [place] [address] Keppra (Levetiracetam) level (11/12/2019 5:04 PM CDT) Levetiracetam 30 12 - 46 ug/mL [facility] Comment: INTERPRETIVE INFORMATION: Keppra (Levetiracetam) Therapeutic Range: 12-46 ug/mL Toxic: Not well Established Pharmacokinetics of levetiracetam are affected by lamberto l function. Adverse effects may include somnolence, weakness, head ache and vomiting. This levetiracetam (Keppra) immunoassay uses the [employer] D allyve reagents, which has known cross-reactivity with the dr norma collinsracetam (Briviact) and may report inaccurate resu lts. Patients transitioning from levetiracetam to brivarace goldstein or those who are using both medications should not monitor drug concentrations with the [employer] Diagnostics assay. These p atients should be monitored using a validated chromatographic methodology that distinguishes between drugs to determine drug con centrations. Performed by [facility], [address] [place] [id number] [email or web address], Josué Barreto MD, Lab. Director Specimen Serum Performing Organization Address [facility]/Zipcode Phone Number [facility] [address] [place] [address] [facility] [address] [place] [address] Alcohol level, blood (11/12/2019 5:04 PM CDT) Alcohol None Detected mg/dL [facility] Comment: HOSPITAL Normal None Detected Legal Intoxication in [place] 80 mg/dL (0.08%) - Whole Blood Toxic Concentration 200 mg/dL (0.2%) Potentially Fatal 350 - 500 mg/dL (0. 35 - 0.5%) Alcohol percent None Detected % [facility] Specimen Blood Performing Organization Address City/[facility]/Zipcode Phone Number [facility] DEPARTMENT OF PATHOLOGY AND [address] [place] [phone] GENOM[address] [address] Comprehensive metabolic panel (11/12/2019 5:04 PM CDT) Sodium 142 135 - 148 [facility] mEq/L [facility] Potassium 3.7 3.5 - 5.0 [facility] mEq/L [facility] Chloride 106 98 - 112 [facility] mEq/L [facility] CO2 22 (L) 24 - 31 mEq/L [facility] Anion gap 14@ANIO 7 - 15 mEq/L [facility] BUN 4 (L) 6 - 20 mg/dL [facility] Creatinine 0.60 0.50 - 0.90 [facility] mg/dL HOSPITAL Glucose 98 65 - 99 mg/dL [facility] Calcium 9.4 8.3 - 10.2 [facility] mg/dL HOSPITAL Protein 7.2 6.3 - 8.3 [facility] Comment: g/dL [facility] - [facility] 4.6-7.0 g/dL 1 week 4.4-7.6 g/dL 7 months-1year 5.1-7.3 g/dL 1-2 years 5.6-7.5 g/dL >3 years 6.0-8.0 g/dL 18-150 6.3-8.3 g/dL Albumin 3.7 3.5 - 5.0 [facility] g/dL HOSPITAL A/G ratio 1.1 0.7 - 3.8 [facility] Alkaline phosphatase 79 35 - 104 U/L [facility] AST 29 10 - 35 U/L [facility] ALT 39 5 - 50 U/L [facility] Total bilirubin <0.2 0.0 - 1.2 [facility] mg/dL [facility] Specimen Blood Performing Organization Address City/State/Zipcode Phone Number [facility] DEPARTMENT OF PATHOLOGY AND [address] [place], [place] [address] GENOMIC [address] [address] Urinalysis screen and microscopy, with reflex to culture (11/12/2019 2:44 PM CDT) Specimen site Clean catch [facility] Color, UA Straw [facility] Appearance, UA Hazy [facility] Specific gravity, UA 1.020 1.001 - 1.035 [facility] pH, UA 8.0 5.0 - 8.5 [facility] Protein, UA Negative Negative [facility] Glucose, UA Negative Negative [facility] Ketones, UA Negative Negative [facility] Bilirubin, UA Negative Negative [facility] Blood, UA Negative Negative [facility] Nitrite, UA Negative Negative [facility] Urobilinogen, UA <2.0 <2.0 [facility] Leukocyte esterase, Negative Negative [facility] Epithelial cells, UA 6 /HPF [facility] WBC, UA <1 0 - 4 /HPF [facility] RBC, UA None seen 0 - 5 /HPF [facility] Bacteria, UA Few None seen [facility] Yeast, UA None seen [facility] Yeast with None seen [facility] pseudohyphae, UA HOSPITAL Specimen Urine Performing Organization Address City/[facility]/Zipcode Phone Number [facility] DEPARTMENT OF PATHOLOGY AND [address] [place] [address] [phone] [address] hCG qualitative, urine screen (11/12/2019 2:44 PM CDT) hCG qualitative, NegativeComment: [facility] urine Sensitivity of [facility] test: 25 mIU/mL Specimen Urine Performing Organization Address City/[facility] Phone Number [facility] DEPARTMENT OF PATHOLOGY AND [address] [place] [address] [phone] [address] Urine drugs of abuse screen (11/12/2019 2:44 PM CDT) Amphetamine screen, Negative [facility] Barbiturate screen, Negative [place] urine [facility] Benzodiazepine Negative [place] screen, urine [facility] Cocaine screen, urine Negative [facility] Methadone metabolite Negative [facility] (EDDP), urine [facility] Opiates screen, urine Negative [facility] Oxycodone screen, Negative [place] urine [facility] Phencyclidine screen, Negative [place] urine [facility] Tricyclic screen, Negative [place] urine [facility] Cannabinoid screen, Negative [facility] urine Comment: PENTECOSTALISM Drug screen minimum concentration of detectability HOSPITAL [...] requir ed. Specimen Urine Performing Organization Address City/[facility] Phone Number [facility] DEPARTMENT OF PATHOLOGY AND [address] [place] [address] [phone] [address] Urine culture (11/12/2019 2:44 PM CDT) Pathologist Sig nature Urine culture SEE COMMENTComment: [facility] Bacteriuria screen HOSPITAL negative. 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
--- OUTSIDE RECORDS SUMMARY | 2019-12-14 21:49 | XMS REPORT | Clinical Summary ---
:1990 Author Organization [facility] Address [address] [place] [address] Care Team Providers Name Role Phone Unavailable Primary Care Provider Unavailable Allergies No Known Allergies Medications Medication Sig Dispensed Refills Start Date End Date Status levETIRAcetam (KEPPRA) Take 1 tablet 60 tablet 2 05/19/2017 Active 1000 MG tablet (1,000 mg total) by mouth 2 (two) times daily. vitamin Take 1 tablet by 90 tablet 3 05/20/2017 Active w/xrqfthu-kggs-ucweej mouth daily. ( PLUS) 27 mg iron- [...] / Group Subscriber ID Type Phone A [facility] MEDICAID MEDICAID OF [place] xxxxxxxxx Medicaid [id number] Advance Directives For more information, please contact:[facility] B-Obvious ke'[facility] CenterHqrlfb[address] [place], [place] [phone] Code Status Date Activated Date Inactivated Comments Full Code 05/14/2017 10:10 PM 05/19/2017 2:55 PM This code status was determined by: Patient
--- OUTSIDE RECORDS SUMMARY | 2019-12-14 21:53 | XMS REPORT | Continuity of Care Document ---
:1990 Author Organization [facility] t Address [address] [place] [address] Care Team Providers Name Role Phone Asked, Pcp Primary Care Physician Unavailable Rohit SMITH F Attending Clinician Rita SABA Attending Clinician Doctor Unassigned, Name Attending Clinician Unavailable Lory MENDOZA Attending Clinician Di TAYLOR Attending Clinician Unavailable Adolfo Bailey MD Attending Clinician Alissa MENDOZA Attending Clinician Susi Diana MD Attending Clinician Aleksandar MENDOZA Attending Clinician Magda Adam MD Attending Clinician BRANDO RODAS Attending Clinician Unavailable ALISSA Admitting Clinician Unavailable Juliano DEJESUS Admitting Clinician Unavailable Payers Payer Name Policy Type Policy Number Effective Date Expiration Date Moses basurto CIGNACIGNA OPEN xxxxxxxxxxx 2019 [place] ACCESS/NETWORKxx 00:00:00 Methodis t 0-PresentHMO MEDICAIDMEDICAID xxxxxxxxx 2019 [place] 00:00:00 Methodis t 0-PresentMedicai d Problems Condition Condition Condition Status Onset Resolution Last Treating Co mments Source Name Details Category Date Date Treatment Clinician Date Seizure Seizure Disease Active [place] 11-11 Methodi 00:00: st 00 Hypokalemi Hypokalemi Disease Active 2016-[address] [facility] Acute Acute Disease Active 2016-[address] [facility] [address] encephalop encephalop 1-30 [facility] kes - athy athy 00:00: [facility] 00 Center Seizure Seizure Disease Active 2016-[address] [facility] [address] disorder disorder 1-30 [facility] 00 [place] Leukocytos Leukocytos Disease Active 2016-[address] [facility] 1-[facility] Less than Less than Disease Active 2016-[address] [facility] [address] 8 weeks 8 weeks 1-30 [facility] - gestation gestation 00:00: [facility] jesica of of 00 Center Allergies, Adverse Reactions, Alerts Allergy Allergy Status Severity Reaction(s) Onset Inactive Treating Comm ents Source Name Type Date Date Clinician No Known DA Active U [facility]11 [facility] No Known DA Active U 2016-06 [facility] Allergie 24 [facility] s 00:00: [address] Social History Social Habit Start Date Stop Date Quantity Comments Source Sex Assigned At [facility] ethodist Alcohol intake 2019-11-12 2019-11-12 Ex-drinker [facility] thodist 00:00:00 00:00:00 (finding) Smoking Status Start Date Stop Date Source Never smoker [place] Methodis t Medications Ordered Filled Start Stop Current Ordering Indication Dosage Frequency Signature Comments Components Source Medication Medication Date Date Medication? Clinician (SIG) Name Name levETIRAcet 2020- No 750mg Q.5D Take 750 Nunez am [...] Take 1 Nunez complex-vit 11-14 tablet by Me mohan carter 00:00: 23:[address] C-folic 00 [...] Systolic blood 2019-11-15 12:02:13 114 mm[Hg] Luz pinzon Baptism pressure Diastolic blood 2019-11-15 12:02:13 74 mm[Hg] Julee on Baptism pressure Heart rate 2019-11-15 12:02:13 93 /min Enrique Piedra Body temperature 2019-11-15 12:02:13 36.78 Melody Sonja ton Baptism Respiratory rate 2019-11-15 12:02:13 18 /min Sonja ton Baptism Oxygen saturation in 2019-11-15 12:02:13 97 /min [...] DIFFERENTIAL Ebrahim MANUAL DIFFERENTIAL 2019-11-15 04:30:00 Adrian Diana Ebrahim BASIC METABOLIC PANEL 2019-11-15 04:00:00 Adrian Diana Ebrahim ESTIMATED GFR 2019-11-15 04:00:00 Adrian Diana Meth odist Ebrahim UNMONITORED VIDEO DAILY 2019-11-15 01:22:22 Bina Bonds EEG SETUP 2019-11-14 00:26:44 Bina Bonds EEG (ROUTINE) 2019-11-13 07:46:23 Bina Bonds CBC WITH PLATELET AND 2019-11-13 04:00:00 Caesar Maxwell on Bapt[facility] DIFFERENTIAL BASIC METABOLIC PANEL 2019-11-13 04:00:00 Caesar Maxwell on [facility] TOTAL IRON BINDING 2019-11-13 04:00:00 Caesar Maxwell [facility] CAPACITY FERRITIN LEVEL 2019-11-13 04:00:00 Caesar Maxwell Met hodist ESTIMATED GFR 2019-11-13 04:00:00 Caesar Maxwell Met hodist MANUAL DIFFERENTIAL 2019-11-13 04:00:00 Caesar Maxwell MRI BRAIN W WO CONTRAST 2019-11-13 02:16:00 Bina Bonds CONSULT TO OSTOMY CARE 2019-11-12 23:40:27 Caesar Maxwell [facility] NURSE ECG 12-LEAD 2019-11-12 21:10:47 Bina Bonds MARCELINO 2019-11-12 19:40:00 Bina Bonds FOLATE LEVEL 2019-11-12 19:40:00 Bina Bonds VITAMIN B12 LEVEL 2019-11-12 19:40:00 Bina Bonds [facility] C-REACTIVE PROTEIN 2019-11-12 19:40:00 Bina Bonds on Baptism HOMOCYSTINE, PLASMA 2019-11-12 19:40:00 Bina Bonds [facility] CORTISOL LEVEL, RANDOM 2019-11-12 19:40:00 Bina Bonds [facility] SEDIMENTATION RATE 2019-11-12 19:40:00 Bina Bonds on Baptism RHEUMATOID FACTOR 2019-11-12 19:40:00 Bina Bonds [facility] THYROID STIMULATING 2019-11-12 19:40:00 Bina Bonds [facility] HORMONE T4, FREE 2019-11-12 19:40:00 Bina Bonds SYPHILIS TOTAL ANTIBODY 2019-11-12 19:40:00 Bina Bonds HIV AG/AB COMBINATION 2019-11-12 19:40:00 Bina Bonds [facility] VITAMIN D 25 HYDROXY 2019-11-12 19:40:00 Bina Bonds stoalberta Baptism LEVEL CREATINE KINASE, TOTAL 2019-11-12 19:40:00 Bailey, Shari Ladd on Baptism (CPK) Adolfo PROLACTIN LEVEL 2019-11-12 19:40:00 Shari Bailey Meth odist Adolfo MARCELINO TITER 2019-11-12 19:40:00 Shari Bailey Meth odist Adolfo CT CERVICAL SPINE WO 2019-11-12 18:12:54 Shari Bailey Nunez Baptism CONTRAST Adolfo CT MAXILLOFACIAL WO 2019-11-12 18:09:40 Shari Bailey [facility] CONTRAST Adolfo CT HEAD WO CONTRAST 2019-11-12 18:09:19 Shari Bailey Enrique Baptism Adolfo XR CHEST 1 VW PORTABLE 2019-11-12 17:35:36 Leo Shari Ladd on Baptism Adolfo HC COMPLETE BLD COUNT 2019-11-12 17:04:00 Shari Bailey Bapt[facility] W/AUTO DIFF [facility] [place] COMPREHENSIVE METABOLIC 2019-11-12 17:04:00 Shari Bailey [facility] PANEL [facility] [place] ALCOHOL LEVEL, BLOOD 2019-11-12 17:04:00 Leo Shari Enrique Baptism Adolfo KEPPRA (LEVETIRACETAM) 2019-11-12 17:04:00 Shari Bailey on Baptism LEVEL [facility] [place] ESTIMATED GFR 2019-11-12 17:04:00 Shari Bailey Enrique Meth odist Adolfo URINE CULTURE 2019-11-12 14:44:00 Keanu Flores Meth odist URINALYSIS SCREEN AND 2019-11-12 14:44:00 Keanu Flores Bapt[facility] MICROSCOPY, WITH REFLEX TO CULTURE HCG QUALITATIVE, URINE 2019-11-12 14:44:00 Keanu Flores [facility] SCREEN URINE DRUGS OF ABUSE 2019-11-12 14:44:00 Keanu Flores [facility] SCREEN Plan of Care Planned Activity Planned Date Details Comments Source Future Scheduled 2020-01-14 INFLUENZA VACCINE Luz n Baptism Test 00:00:00 [code = INFLUENZA VACCINE] Future Scheduled 2010 Screening for Nunez Me thodist Test 00:00:00 malignant neoplasm of cervix (procedure) [code = 649506912] Encounters Start End Encounter Admission Attending Care Care Encounter Source Date/Time Date/Time Type Type Clinicians Facility Department ID 2019-11-29 2019-11-29 Emergency Rohit [facility] [id number] 13:51:42 18:42:00 Brittany Leach [id number] [place] 4.2.7.2.686 [place] [id number] 2019-11-29 2019-11-29 [facility] [id number] 00:00:00 00:00:00 Cecilia Leach [id number] [place] 4.2.7.2.686 Profess[place] [id number] [address] 2019-11-29 2019-11-29 Orders Doctor ELVIA [id number] 00:00:00 00:00:00 Only Unassigned, MICHAELLE [id number] [place] [facility] 4.2.7.2.686 [id number] 2019-11-12 2019-11-15 Inpatient [place] [id number] [place] 00:00:00 00:00:[address] 2019-10-24 2019-10-24 [facility] [id number] 14:33:37 23:59:00 Encounter Sj OCHOA [id number] MEDICAL 4.2.7.2.686 [place] [id number] 2019-10-11 2019-10-11 [facility] [id number] 00:00:00 00:00:00 Cecilia Leach [id number] [place] 4.2.7.2.686 Professio [id number] [address] 2019-10-06 2019-10-06 [facility]medici [facility] [id number] 08:13:12 15:30:52 ne Visit Cecilia Leach [id number] [place] 4.2.7.2.686 Professio [id number] [address] 2019-08-12 2019-08-12 Case Ad, [facility] [id number] 00:00:00 00:00:00 Management Daina Leach [id number] [place] 4.2.7.2.686 Professio [id number] [address] 2019-08-12 2019-08-12 Telephone Ad, [facility] [id number] 00:00:00 00:00:00 Daina Leach 350.1.13.10 [place] 4.2.7.2.686 Professio [id number] [address] 2019-08-10 2019-08-10 Office Admodesto [facility] [id number] 14:12:35 15:35:54 Visit Daina Leach 350.1.13.10 [place] 4.2.7.2.686 Professio [id number] [address] Results Test Description Test Test Results Result Source Time Comments Comments Continuous EEG 2019-11- CONTINUOUS VIDEO-EEG [facility] [address] 17:34:53 Patient [...] Comme nts MARCELINO titer (test code = 01104-7) 1:160 Not-Detected A MARCELINO pattern (test code = 78586-6) Homogeneous Not-Detected A Lab Interpretation (test code = 39898-9) Abnormal [place] IsdhfkgjvCTL6332-79-95 13:08:33 Test Item Value Reference Range Interpretation Comments MARCELINO screen (test code Positive Negative A Test p erformed using = 550) NOVA Lite DAPI MARCELINO kit (Indirect Immunofluoresce nce Assay) for Anti -Nuclear Antibody on Printed PieceA-Lyser 16 0 Analyzer. Lab Interpretation Abnormal (test code = 91742-3) [place] MethodistCB with platelet and owdbnwdknqnj8579-68-62 08:57:11 Test Item Value Reference Range Interpretation Comments WBC (test code = 50346-2) 7.99 4.50- 11.00 k/uL RBC (test code = 84059-4) 4.06 m/uL 4.2-5.5 L HGB (test code = 718-7) 10.8 g/dL 12-16 L HCT (test code = 4544-3) 34.1 % 37-47 L MCV (test code = 787-2) 84.0 fL 82-100 MCH (test code = 785-6) 26.6 pg 27-34 L MCHC (test code = 786-4) 31.7 g/dL 31-37 RDW - SD (test code = 79206-6) 48.1 fL 37-55 MPV (test code = 58969-6) 10.2 fL 8.8-13.2 Platelet count (test code = 251 150- 400 k/uL 14453-3) Nucleated RBC (test code = 0.00 /100 WBC 71681-6) Neutrophils (test code = 29113-3) 51.0 % 39-69 Lymphocytes (test code = 83476-4) 34.0 % 25-45 Monocytes (test code = 80830-7) 13.0 % 0-10 H Eosinophils (test code = 80167-6) 2.0 % 0-5 Basophils (test code = 92828-1) 0.0 % 0-1 Lab Interpretation (test code = Abnormal 07273-7) Enrique MethodistManual fmltukrdmmjm2225-87-51 08:57:11 Test Item Value Reference Range Interpretation Comments Manual differential (test code = PERFORMED 74168-3) Neutrophils (test code = 51.0 % 39-69 19753-4) Lymphocytes (test code = 34.0 % 25-45 84854-5) Monocytes (test code = 18086-4) 13.0 % 0-10 H Eosinophils (test code = 2.0 % 0-5 63939-6) Basophils (test code = 69383-0) 0.0 % 0-1 Metamyelocytes (test code = 0 % 740-1) Promyelocytes (test code = 0 % 783-1) Platelet slide review (test code Sana adequate = 70151-1) Anisocytosis (test code = 702-1) Moderate Ovalocytes (test code = 774-0) Moderate Enlarged platelets (test code = Moderate A 00326-4) Lab Interpretation (test code = Abnormal 45026-0) Enrique MethodistContinuous EEG lxutuajyvl8786-80-43 07:42:19CONTINUOUS VIDEO- EEG MONITORING REPORT Patient Name: [...] regions independently. No seizures occurred. ICD-10 Code: R56.9HTexoma Medical CenteristBasic metabolic yjdfk2902-98-86 06:44:31 Test Item Value Reference Range Interpretation Comments Sodium (test code = 2951-2) 135 135- 148 mEq/L Potassium (test code = 2823-3) 3.4 3.5- 5.0 mEq/L L Chloride (test code = 2075-0) 103 98- 112 mEq/L CO2 (test code = 8-9) 21 24- 31 mEq/L L Anion gap (test code = 32304-7) 11@ANIO 7- 15 mEq/L BUN (test code = 3094-0) 9 mg/dL 6-20 Creatinine (test code = 2160-0) 0.48 mg/dL 0.5-0.9 L Glucose (test code = 2345-7) 95 mg/dL 65-99 Calcium (test code = 63784-0) 9.2 mg/dL 8.3-10.2 Lab Interpretation (test code = Abnormal 25326-3) Enrique MethodistEstimated [id number] 06:44:31 Test Item Value Reference Range Interpretation Comments Estimated GFR (test >=90 mL/min/1.73 m2 [facility] Units code = 5488) InterpretationG 1 >=90 Normal or highG2 60-89 Mildly zfpkxkaovU9c 45-59 Mildly to mode rately zgwbotlkuR8x 30-44 Moderately to severely decreasedG4 15-29 Severely decre asedG5 <15 Kidn ey failureThe eGFR was calculated alyssa fortune the Chronic Kidney Disease Epidemiology Co llaboration (CKD-EPI) equat ion. Interpretation is based on recommendations of the National Kidney Foundation-Kidn ey Disease Outcomes Qualit y Initiative (NKF-KDOQI) pub lished in 2014. Enrique MethodistKeppra (Levetiracetam) [id number] 05:29:41 Test Item Value Reference Interpretation Comments Range Levetiracetam 30 ug/mL 12-46 INTERPRETIVE I NFORMATION: (test code = Keppra 4478-4) (Levetiracetam) Therapeutic Range: 12-46 u g/mL Toxic: Not wel l EstablishedPhar macokinetics of levetiracetam a re affected by renal function. Adverse effects may include andi nolence, weakness, heada justus and vomiting.This l evetiracetam (Keppra) immuno assay uses the [employer] reagents, which has known cross -reactivity [...] to determ ine drug concentrations. Performed by [facility] [facility],[address] [facility], [facility],[place] [address] .[employer], Josué Barreto MD, Lab. Director Enrique CruzistVitamin D 25 hydroxy pyykz1878-21-14 15:46:04 Test Item Value Reference Range Interpretation Comments Vitamin D, 25-hydroxy 13.6 ng/mL 30-150 L This a ssay reports (test code = 1989-) the sum of 25-hydroxy vandana min D3 [...] hods. Lab Interpretation Abnormal (test code = 81000-4) Enrique PiedraContinuous EEG sandrlmnsu4297-73-62 07:19:24 CONTINUOUS VIDEO-EEG MONITORING REPORT Patient Name: [...] regions independently. No seizures occurred. ICD-10 Code: R56.9[facility] EEG (routine) - Baseline [id number] 06:43:32EEG RECORDING AWAKE & ASLEEP - Baseline [...] EEG and agree with the above findings. Richard Henley MDSpringfield MethodistECG 12 nldj1611-71-69 20:07:26 Test Item Value Reference Range Interpretation Comments Ventricular rate (test 81 code = 253) Atrial rate (test code = 81 255) NC interval (test code = 164 266) QRSD [...] Ibarra MD (1082) on 11/13/2019 8:07:25 PM [place] MethodistSyphilis total xjjxtifq6054-53-57 10:13:08 Test Item Value Reference Range Interpretation Comments Syphilis total Non-reactive Non-reactive No serologica l antibody (test code evidence of syphilis = 6194) infection. [place] MethodistFerritin dvolu4984-95-39 07:54:01 Test Item Value Reference Range Interpretation Comments Ferritin level (test code = 2276-4) <13 13-150 A Lab Interpretation (test code = Abnormal 85281-0) [place] MethodistTotal iron binding dksdtkge3347-99-44 07:50:12 Test Item Value Reference Range Interpretation Comments Iron level (test code = 2498-4) 20 ug/dL 37-145 L Iron binding capacity (test code = 335 ug/dL 128-486 7982-7) % Saturation (test code = 2502-3) 6.0 % 15-38 L Lab Interpretation (test code = Abnormal 74497-4) [place] BaptismMRI Brain W Wo Iegxncma4708-29-21 06:11:14Hm Interface, Radiology Results 11/13/2019 6:14 AM [...] hypoperfusion or cuco-ictal hyperperfusion to localize seizure focus.[facility]-[id number] MethodistSedimentation rate 2019-11-12 22:03:32 Test Item Value Reference Range Interpretation Comments Sedimentation rate (test code = 9 0- 20 mm/hr 16456-1) [facility]Ab gjnjozxkzcl4097-77-99 21:46:22 Test Item Value Reference Range Interpretation Comments HIV Ag/Ab combination (test code Non-reactive Non-reactive = 5299) [facility]healthVitamin B12 llrjg4191-74-57 20:56:33 Test Item Value Reference Range Interpretation Comments Vitamin B12 (test 466 pg/mL 211-946 Significan t overlap code = 2132-9) exists betwee n normal and deficiency states.However, most patients with deficiencies wi ll have Serum B12 <2 00 pg/mL. [place] MethodistFolate xlayq1322-35-05 20:56:33 Test Item Value Reference Range Interpretation Comments Folate (test code = 2284-8) 9.3 ng/mL 4.8-24.2 [place] MethodistT4, quzd8840-50-57 20:48:50 Test Item Value Reference Range Interpretation Comments T4, free (test code = 3024-7) 1.2 ng/dL 0.9-1.7 [place] MethodistCortisol level, tiosjh4543-65-08 20:48:37 Test Item Value Reference Range Interpretation Comments Cortisol, random 2 ug/dL Reference R anges are not (test code = 2143-6) establi shed for non-timed Cortisol levels .Reference Range for Timed Cortisol: 6 - 10 AM 6 - 18 ug/dl 4 - 8 PM 3 - 11 ug/ dl [place] MethodistThyroid stimulating gwsnbsw6949-89-15 20:48:37 Test Item Value Reference Range Interpretation Comments TSH (test code = 3016-3) 2.21 0.27- 4.20 uIU/mL [place] MethodistProlactin zvoga4835-57-40 20:48:36 Test Item Value Reference Range Interpretation Comments Prolactin (test code = 2842-3) 22 ng/mL 5-23 [place] MethodistCreatine kinase, total (CPK)2019-11-12 20:42:35 Test Item Value Reference Range Interpretation Comments Creatine kinase (test code = 2157-6) 56 U/L 26-192 [place] MethodistC-reactive xcpbmrd0281-45-44 20:42:35 Test Item Value Reference Range Interpretation Comments CRP (test code = 1987-) <0.30 0-0.5 [place] MethodistRheumatoid ebpwfu1884-07-22 20:36:01 Test Item Value Reference Range Interpretation Comments Rheumatoid factor (test code = 19417-4) <10 0- 13 IU/mL [place] MethodistHomocystine, avksif2020-63-87 20:36:01 Test Item Value Reference Range Interpretation Comments Homocysteine (test 10.3 umol/L 0-15 The risk for coronary code = 41428-2) vascular dis ease increases progressively w ith homocysteine concentration. A 3.4 times greater r isk is associated wit h a homocysteine concentration o f greater than 15.8 umol/L as carlin red to a concentration below 14.1 umol/L. [place] MethodistCT Cervical Spine Wo [id number] 18:17:20Hm Interface, Radiology Results 11/12/2019 6:20 PM [...] fracture or subluxation identified in the cervical spine.[facility]-[id number] MethodistCT Maxillofacial Wo Namogooq5779-28-95 18:15:46Hm Interface, Radiology Results 11/12/2019 6:18 PM [...] soft tissues are unremarkable.The paranasal sinuses are clear.[facility]-[id number] Baptism CT Head Wo [id number] 18:11:26Hm Interface, Radiology Results 11/12/2019 6:14 PM [...] air cells are clear.IMPRESSION:No acute intracranial abnormality identified.[facility]-[id number] MethodistComprehensive metabolic fomnp8522-00-37 18:10:58 Test Item Value Reference Range Interpretation Comments Sodium (test code = 142 135- 148 mEq/L 2951-2) Potassium (test code = 3.7 3.5- 5.0 mEq/L 2823-3) Chloride (test code = 106 98- 112 mEq/L 2075-0) CO2 (test code = 2027-9) 22 24- 31 mEq/L L Anion gap (test code = 14@ANIO 7- 15 mEq/L 42500-7) BUN (test code = 3094-0) 4 mg/dL 6-20 L Creatinine (test code = 0.60 mg/dL 0.5-0.9 2160-0) Glucose (test code = 98 mg/dL 65-99 2345-7) Calcium (test code = 9.4 mg/dL 8.3-10.2 11186-8) Protein (test code = 7.2 g/dL 6.3-8.3 -[place] n 2885-2) 4.6-7.0 g/dL1 week 4.4-7 .6 g/dL7 months-1y ear 5.1-7 .3 g/dL1-2 years 5.6-7 .5 g/dL>3 years 6.0-8 .0 g/rO92-233 6.3-8 .3 g/dL Albumin (test code = 3.7 g/dL 3.5-5 1751-7) A/G ratio (test code = 1.1 0.7-3.8 1759-0) Alkaline phosphatase 79 U/L 35-104 (test code = 6768-6) AST (test code = 1920-8) 29 U/L 10-35 ALT (test code = 1742-6) 39 U/L 5-50 Total bilirubin (test <0.2 0-1.2 code = 1975-2) Lab Interpretation (test Abnormal code = 08160-5) [place] MethodistAlcohol level, [id number] 18:06:03 Test Item Value Reference Range Interpretation Comments Alcohol percent None Detected % Normal (test code = None Detec tedLegal 5643-2) Intoxication in [place] 80 mg/dL (0.08% ) - Whole BloodToxi c Concentration 200 mg/dL (0.2%)Potential ly Fatal 350 - 500 mg/dL (0.35 - 0 .5%) [place] MethodistXR Chest 1 Vw Daqkpbzq5910-65-63 17:37:03Hm Interface, Radiology Results 11/12/2019 5:40 PM CDTEXAMINATION: XR CHEST 1 VW PORTABLECLINICAL HISTORY: SOBXR CHEST 1 VW PORTABLE images are submittedCOMPARISON: NONEFINDINGS:The cardiac silhouette is normal in size. The pulmonary vasculature is within normal limits. The lung zones have no focal area of consolidation. There is no pleural effusion or pneumothorax.IMPRESSION:1. Thereis no acute cardiopulmonary disease.[id number] Baptism Urinalysis screen and microscopy, with reflex to kshtsih0704-01-97 16:10:59 Test Item Value Reference Range Interpretation Comments Specimen site (test code = Clean catch 8048905) Color, UA (test code = 5778-6) Straw Appearance, UA (test code = Hazy 5767-9) Specific gravity, UA (test code = 1.020 1.001-1.035 5811-5) pH, UA (test code = 5803-2) 8.0 5.0-8.5 Protein, UA (test code = 20469-2) Negative Negative Glucose, UA (test code = 03059-7) Negative Negative Ketones, UA (test code = 2514-8) Negative Negative Bilirubin, UA (test code = Negative Negative 5770-3) Blood, UA (test code = 5794-3) Negative Negative Nitrite, UA (test code = 5802-4) Negative Negative Urobilinogen, UA (test code = <2.0 <2.0 10520-5) Leukocyte esterase, UA (test code Negative Negative = 5799-2) Epithelial cells, UA (test code = 6 /HPF 5787-7) WBC, UA (test code = 5821-4) <1 0- 4 /HPF RBC, UA (test code = 09176-6) None seen 0- 5 /HPF Bacteria, UA (test code = Few None seen 67854-8) Yeast, UA (test code = 20697-0) None seen Yeast with pseudohyphae, UA (test None seen code = 36407-3) Enrique Bowman drugs of abuse [id number] 15:33:59 Test Item Value Reference Interpretation Comments Range Amphetamine screen, Negative urine (test code = 3349-8) Barbiturate screen, Negative urine (test code = 3377-9) Benzodiazepine Negative screen, urine (test code = 3390-2) Cocaine screen, Negative urine (test code = 3397-7) Methadone Negative metabolite (EDDP), urine (test code = 20632-2) Opiates screen, Negative urine (test code = 3879-4) Oxycodone screen, Negative urine (test code = 42424-1) Phencyclidine Negative screen, urine (test code = 3936-2) Tricyclic screen, Negative urine (test code = 27660-0) Cannabinoid screen, Negative Drug scr een minimum [...] efinitive testing is requ ired. Enrique Bowman ofxwanb1165-32-29 15:28:27 Test Item Value Reference Range Interpretation Comments Urine culture (test SEE COMMENT Bacteriu landry screen code = 7884754) negative. Enrique Carrizales qualitative, urine elowzi2536-02-60 15:26:18 Test Item Value Reference Range Interpretation Comments hCG qualitative, Negative Sensitivity of HCG test: urine (test code = 25 mIU/mL 2106-3) Enrique MethodistRPR Objxzoqrmnx7397-73-14 16:47:08 Test Item Value Reference Range Interpretation [...] = 06-14-2020 N Expiration Dt) Thyroid Stimulating Ygidvxd3104-29-37 06:31:44 Test Item Value Reference Range Interpretation Comments TSH (test code = TSH) 3.830 mIU/mL 0.270-4.200 Lipid Izgrx3136-39-55 06:24:40 Test Item Value Reference Range Interpretation Comments Cholesterol Total 152 mg/dL 0-200 RISK OF HE ART (test code = DISEASEPublishe d by Cholesterol Total) [place] [employer] Marcelino lyte Optimal Borderl ine [...] LDL/HDL Ratio=L DL Calc/HDL Chol Urine Drug [id number] 21:53:06 Test Item Value Reference Range Interpretation [...] if desired . Urinalysis with Culture, if izupznwwu2876-44-26 21:40:53 Test Item Value Reference Range Interpretation [...] Indicated Not Indicated Micro Ind?) Comprehensive Metabolic Qtzgf6093-58-30 21:34:15 Test Item Value Reference Range Interpretation [...] = A/G 1.6 ratio N Ratio) Alcohol Lnxqv2201-23-85 21:34:15 Test Item Value Reference Range Interpretation Comments Ethanol Level (test <0.00 g/dL 0.00-0.01 Intoxica vandana 0.080 g/dL code = Ethanol or more Level) Ethanol Inst (test <0 N code = Ethanol Inst) Comprehensive Metabolic Ixdsw3850-58-18 21:34:15 Test Item Value Reference Range Interpretation [...] National Kidney Foundation, http://nkdep.ni h.gov Comprehensive Metabolic Dsgvz4802-68-58 21:34:15 Test Item Value Reference Range Interpretation [...] ag e have not been validated by e MDRD study and should be interpreted wit h caution. eGFR R esult Interpretation: eGFR > or = 60 is in the Normal RangeeGF R < 60 may mean kid shannan diseaseeGFR < 1 5 may mean kidney failure Rang es recommended by the National Kidney Foundation, http://nkdep.ni h.gov Complete Blood Count with [id number] 21:15:24 Test Item Value Reference Range Interpretation [...] code = IPF) 0 % N Automated [id number] 21:15:24 Test Item Value Reference Range Interpretation Comments Neutro Auto (test code = Neutro 54.3 % 36.0-70.0 Auto) Lymph Auto (test code = Lymph Auto) 32.3 % 12.0-44.0 Gilpin Auto (test code = Gilpin Auto) 11.1 % 0.0-11.0 H Eos, Auto (test code = Eos, Auto) 1.3 % 0.0-7.0 Basophil Auto (test code = Basophil 0.7 % 0.0-2.0 Auto) Neutro Absolute (test code = Neutro 6.2 x10 1.6-7.4 Absolute) Lymph Absolute (test code = Lymph 3.71 x10 .50-4.60 Absolute) Gilpin Absolute (test code = Gilpin 1.28 x10 .00-1.20 H Absolute) Eos Absolute (test code = Eos 0.15 x10 0.00-0.74 Absolute) Baso Absolute (test code = Baso 0.08 x10 0.00-0.21 Absolute) IG [id number] 21:15:24 Test Item Value Reference Range Interpretation Comments IG (test code = IG) 0.3 % 0.0-5.0 IG Abs (test code = IG Abs) 0 x10 N HCG Qualitative [id number] 20:45:17 Test Item Value Reference Range Interpretation [...] 72 hours. Lot # (test code = [id number] N Lot #) Expiration Dt (test 2020-12-12 N code = Expiration Dt) Neg Control (test Negative code = Neg Control) Pos Control (test Positive code = Pos Control) Internal QC (test Acceptable code = Internal QC) RPR [id number] 12:07:58 Test Item Value Reference Range Interpretation [...] = 04-14-2020 N Expiration Dt) Thyroid Stimulating [id number] 07:59:52 Test Item Value Reference Range Interpretation Comments TSH (test code = TSH) 0.717 mIU/mL 0.270-4.200 Lipid [id number] 07:52:46 Test Item Value Reference Range Interpretation Comments Cholesterol Total 141 mg/dL 0-200 RISK OF HE ART (test code = DISEASEPublishe d by Cholesterol Total) [employer] Marcelino lyte Optimal Borderl ine [...] LDL/HDL Ratio=L DL Calc/HDL Chol Urine Drug [id number] 15:27:40 Test Item Value Reference Range Interpretation [...] y. Clinical consideration a nd professional ju dgjessica should be appli ed to any drug of abu se test result, particularly wh en preliminary pos itive results are obt ained. Please order a separate confir matory test if desired . Comprehensive Metabolic [id number] 15:15:20 Test Item Value Reference Range Interpretation [...] A/G 1.9 ratio N Ratio) Comprehensive Metabolic [id number] 15:15:20 Test Item Value Reference Range Interpretation [...] the National Kidney Foundation, http://nkdep.ni h.gov Alcohol [id number] 15:15:20 Test Item Value Reference Range Interpretation Comments Ethanol Level (test <0.00 g/dL 0.00-0.01 Intoxica vandana 0.080 g/dL code = Ethanol or more Level) Ethanol Inst (test <0 N code = Ethanol Inst) Comprehensive Metabolic [id number] 15:15:20 Test Item Value Reference Range Interpretation [...] ag e have not been validated by [facility] MDRD study and should be interpreted wit h caution. eGFR R esult Interpretation: eGFR > or = 60 is in the Normal RangeeGF R < 60 may mean kid shannan diseaseeGFR < 1 5 may mean kidney failure Rang es recommended by the National Kidney Foundation, http://nkdep.ni h.gov eGFR Non-AA (test >60.00 N eGFR (sahe mated code = eGFR Non-AA) mL/min/1.73 m2 [...] ag e have not been validated by [facility] MDRD study and should be interpreted wit h caution. eGFR R esult Interpretation: eGFR > or = 60 is in the Normal RangeeGF R < 60 may mean kid shannan diseaseeGFR < 1 5 may mean kidney failure Rang es recommended by the National Kidney Foundation, http://nkdep.ni h.gov Urinalysis [id number] 15:11:20 Test Item Value Reference Range Interpretation Comments UA WBC (test code = UA WBC) 6-10 0-5 A UA RBC (test code = UA RBC) 0-5 0-5 UA Bacteria (test code = UA Moderate A Bacteria) UA Squam Epithelial (test code = UA TNTC A Squam Epithelial) UA Mucous (test code = UA Mucous) Few A Urinalysis with Microscopic if [id number] 14:42:58 Test Item Value Reference Range Interpretation [...] GL_SJM_UA_MICRO _IN D Complete Blood Count with [id number] 14:37:26 Test Item Value Reference Range Interpretation [...] code = IPF) 0 % N Automated [id number] 14:37:26 Test Item Value Reference Range Interpretation Comments Neutro Auto (test code = Neutro 65.8 % 36.0-70.0 Auto) Lymph Auto (test code = Lymph Auto) 25.5 % 12.0-44.0 Gilpin Auto (test code = Gilpin Auto) 7.3 % 0.0-11.0 Eos, Auto (test code = Eos, Auto) 0.7 % 0.0-7.0 Basophil Auto (test code = Basophil 0.5 % 0.0-2.0 Auto) Neutro Absolute (test code = Neutro 6.0 x10 1.6-7.4 Absolute) Lymph Absolute (test code = Lymph 2.34 x10 .50-4.60 Absolute) Gilpin Absolute (test code = Gilpin .67 x10 .00-1.20 Absolute) Eos Absolute (test code = Eos 0.06 x10 0.00-0.74 Absolute) Baso Absolute (test code = Baso 0.05 x10 0.00-0.21 Absolute) IG [id number] 14:37:26 Test Item Value Reference Range Interpretation Comments IG (test code = IG) 0.2 % 0.0-5.0 IG Abs (test code = IG Abs) 0 x10 N HCG Qualitative [id number] 14:34:08 Test Item Value Reference Range Interpretation [...] 72 hours. Lot # (test code = [id number] N Lot #) Expiration Dt (test 2020-03-14 N code = Expiration Dt) Neg Control (test Negative code = Neg Control) Pos Control (test Positive code = Pos Control) Internal QC (test Acceptable code = Internal QC) DRUGS OF ABUSE SCREEN [id number] 17:11:00 Test Item Value Reference Range Interpretation [...] = [place]) concentrati on: 300 ng/mL URINALYSIS [id number] 17:08:00 Test Item Value Reference Range Interpretation [...] (test code = MOD NONE BACU) URINALYSIS [id number] 17:00:00 Test Item Value Reference Range Interpretation [...] (test code = NONE BACU) HCG SERUM [id number] 16:52:00 Test Item Value Reference Range Interpretation Comments HCG SERUM QUAL (test code = HCGQL) NEGATIVE NEGATIVE - CT HEAD/BRAIN W/O [id number] 16:51:00 FAX: Theresa Fields MD [place]: [address]: REG Name: HEATHER HOPE [facility] : 1990 Age/S: 28/F [address] Unit: [id number] Loc: [place], [place]: [place] [address] Acct: [id number] Dis Date: Status: REG ER PHONE #: [phone] Exam Date: 02/23/2019 1642 FAX #: [phone] Reason: SEIZURE EXAMS: CPT CODE: [id number] CT HEAD/BRAIN W/O CONT 65409 Dictation location: U19. CT HEAD WITHOUT CONTRAST. [...] Technologist: HEATHER DICKSON Trnscrd Dt/Tm: 02/23/2019 (1651) t.GAVIOTAR.SP17 Orig Print D/T: S: 02/23/2019 (0754 PAGE 1 Signed ReportBASIC METABOLIC [id number] 16:31:00 Test Item Value Reference Range Interpretation [...] CA) 8.8 mg/dl 8.0-10.5 N BASIC METABOLIC [id number] 16:26:00 Test Item Value Reference Range Interpretation [...] code = CA) mg/dl 8.0-10.5 CBC W/AUTO [id number] 16:15:00 Test Item Value Reference Range Interpretation [...] 3-60 N code = VLDL) RAPID PLASMA [id number] 10:31:00 Test Item Value Reference Range Interpretation Comments RAPID PLASMA REAGIN (test code = Nonreactive Nonreactive RPR) GLYCOSYLATED HEMOGLOBIN (HA1C)2018-12-07 10:05:00 Test Item Value Reference Range Interpretation Comments GLYCOSYLATED HEMOGLOBIN (HA1C) 5.8 % TOT HB 4.5-6.2 N (test code = GLYHGB) [id number] 15:31:00 Test Item Value Reference Range Interpretation Comments ACETAMINOPHEN (test < 1 MCG/ML 10-30 L Acetamin ophen is code = ACET) possibly toxic at levels of: 1. m ore than 150 MCG/ML 4 hours post kaylin stion. 2. more than 5 0 MCG/ML 12 hours post ingestion. [id number] 15:31:00 Test Item Value Reference Range Interpretation Comments SALICYLATE (test code = < 3 MG/DL 0-20 N Refe rence Range: BOSSMAN) Analgesic...... ...... ...... < 10 mg /dl Therapeutic.... ...... ...... 15-20 mg /dl Mild Toxicity....... ...... . > 30 mg/dl Severe Toxicity....... ..... > 60 mg/dl UA RFLX [id number] 14:18:00 Test Item Value Reference Range Interpretation [...] Clean Catch (test code = UASPEC) UA [id number] 14:18:00 Test Item Value Reference Range Interpretation Comments UA WBC (test code = WBCU) < 10 #/hpf <10 UA RBC (test code = RBCU) 0-2 #/hpf NONE SEEN A UA BACTERIA (test code = BACU) RARE #/hpf NONE SEEN UA SQUAMOUS CELLS (test code = 0 - 20 #/lpf <100 SQU) UA MUCUS (test code = MUCU) 1+ #/lpf NONE SEEN BASIC METABOLIC [id number] 14:16:00 Test Item Value Reference Range Interpretation [...] 9.4 MG/DL 8.7-10.5 N CA) HEPATIC FUNCTION [id number] 14:16:00 Test Item Value Reference Range Interpretation [...] 50-136 N TOTAL (test code = ALKP) [id number] 14:16:00 Test Item Value Reference Range Interpretation Comments CK (test code = CKT) 87 Units/L 26-192 N [id number] 14:16:00 Test Item Value Reference Range Interpretation Comments ALCOHOL (test code = < 3 MG/DL 0-10 N 0 - 10: Should be ALC) interpreted as NEGATIVE. 11 - 50: None to mild euphoria. 51 - 100: Mild influence on vision and dark adapta tion. > 80: Legal intoxication; D epression of [employer] [facility] DIRECTOR; Increasing degr ee of poisoning. > 400: Fatalities repo rted. Results are for medical purposes only a nd not forlegal or emp loyment evaluative purp oses. BASIC METABOLIC [id number] 14:09:00 Test Item Value Reference Range Interpretation [...] 9.4 MG/DL 8.7-10.5 N CA) HEPATIC FUNCTION [id number] 14:09:00 Test Item Value Reference Range Interpretation [...] TOTAL (test Units/L 50-136 code = ALKP) [id number] 14:09:00 Test Item Value Reference Range Interpretation Comments CK (test code = CKT) Units/L 26-192 [id number] 14:09:00 Test Item Value Reference Range Interpretation Comments ALCOHOL (test code = ALC) MG/DL 0-10 LACTIC ACID [id number] 13:50:00 Test Item Value Reference Range Interpretation Comments LACTIC ACID POC 0.97 MMOL/L 0.90-1.70 N Performed by certified (test code = LACTP) hose operator at [facility] [id number] 13:48:00 Test Item Value Reference Range Interpretation Comments GLUBED (test code = 88 MG/DL 65-99 N Performe d by certified GLUBED) hose operator at [facility] DRUG OF ABUSE SCREEN [id number] 13:43:00 Test Item Value Reference Interpretation Comments [...] by layton rader methods (i.e., GC/MS) at [facility]. Results of scre en may not be usedin crimi nal justice, job performance or professionalcre dential review, or infa nt custody issues. Negativ e [place] Level ng/ml ------- ----- Cocaine 300 Methamp hetamine (Ecstacy) 500 Cannabinoids (THC) 50 Amphetamine 1000 Barbiturate s 200 Benzodia zepines 200 Opiat es 300 Ph encyclidine (PCP) 25 UR HCG [id number] 13:39:00 Test Item Value Reference Range Interpretation [...] using aquantitative h CG assay. UA RFLX [id number] 13:38:00 Test Item Value Reference Range Interpretation [...] Clean Catch (test code = UASPEC) UA [id number] 13:38:00 Test Item Value Reference Range Interpretation Comments UA WBC (test code = WBCU) #/hpf <10 UA RBC (test code = RBCU) #/hpf NONE SEEN UA SQUAMOUS CELLS (test code = SQU) #/lpf <100 UA RFLX [id number] 13:38:00 Test Item Value Reference Range Interpretation [...] Clean Catch (test code = UASPEC) UA [id number] 13:38:00 Test Item Value Reference Range Interpretation Comments UA WBC (test code = WBCU) #/hpf <10 UA RBC (test code = RBCU) #/hpf NONE SEEN UA SQUAMOUS CELLS (test code = SQU) #/lpf <100 CBC W/AUTO [id number] 13:26:00 Test Item Value Reference Range Interpretation [...] = BA#) 0.05 x10 3/uL 0.0-0.2 N [id number] 19:07:00 Test Item Value Reference Interpretation Comments Range LEVETIRACETAM 28.7 ug/mL 10.0-40.0 This test was developed and (test code = its performance LEVTAM) characteristics determined by [facility]. It has not been cleared orappro froylan by the Food and Drug Administration. Performed At: [facility] [facility] ServicesallanFR[place], [place] [id number] ra Larissa MENDOZA Ph:[phone] BASIC METABOLIC [id number] 04:58:00 Test Item Value Reference Range Interpretation [...] code = 8.9 MG/DL 8.7-10.5 N CA) [id number] 04:58:00 Test Item Value Reference Range Interpretation Comments MAGNESIUM (test code = MAG) 1.9 MG/DL 1.8-2.4 N CBC W/AUTO [id number] 04:08:00 Test Item Value Reference Range Interpretation [...] 0.0-0.2 N NRBC#) - MRI BRAIN W/O [id number] 13:51:00 Patient Name: HEATHER HOPE Unit No: [id number] EXAMS: CPT CODE: [id number] MRI BRAIN W/O CONTRAST 60763 Reason: sz INDICATION: Seizure COMPARISON: CT brain, [...] MD Technologist: Andre Self MRI Trscrpt Dt/ (6289)tHELENDW6 Orig Print D/T: S: 09/17/2018 (8454) [facility] CntNAME: HEATHER HOPE NOVEMBER [address] PHYS: Fele[place] [address] : 1990 AGE: 27 SEX: F LOC: D.D313 1 PHONE #: [phone] EXAM DATE: 09/17/2018 STATUS: ADM IN FAX #: RAD NO: DC Dt: PAGE 1 Signed [id number] 07:25:00 Test Item Value Reference Range Interpretation Comments PROLACTIN (test code = 24.6 ng/mL 4.8-23.3 H Perfo rmed At: HD PROLAC) [facility] [address] [id number] Sb Man MD Ph:[phone] UA RFLX MICROSCOPIC [id number] 19:02:00 Test Item Value Reference Range Interpretation [...] UACULT) URINE SOURCE: Clean CatchUA RFLX MICROSCOPIC [id number] 18:56:00 Test Item Value Reference Range Interpretation [...] (test code = UACULT) URINE SOURCE: Clean [id number] 15:56:00 Test Item Value Reference Range Interpretation Comments CK (test code = CKT) 34 Units/L 26-192 N BASIC METABOLIC [id number] 12:57:00 Test Item Value Reference Range Interpretation [...] code = 8.6 MG/DL 8.7-10.5 L CA) [id number] 12:57:00 Test Item Value Reference Range Interpretation Comments CK (test code = CKT) 32 Units/L 26-192 N CBC W/AUTO [id number] 12:33:00 Test Item Value Reference Range Interpretation [...] 3/uL 0.0-0.2 N NRBC#) TOTAL IRON BINDING [id number] 05:50:00 Test Item Value Reference Range Interpretation Comments SERUM IRON (test code = IRON) 17 MCG/DL 50-170 L TOTAL IRON BINDING CAPACITY (test 363 MCG/DL 280-400 N code = TIBC) IRON SATURATION (test code = 5 % 15-50 L FESAT) [id number] 05:50:00 Test Item Value Reference Range Interpretation Comments FERRITIN (test code = LULI) 11 NG/ML 3-105 N HEPATIC FUNCTION [id number] 05:32:00 Test Item Value Reference Range Interpretation [...] code = ALKP) - CT HEAD/BRAIN W/O [id number] 20:19:00 Patient Name: HEATHER HOPE Unit No: [id number] EXAMS: CPT CODE: [id number] CT HEAD/BRAIN W/O CONT 68150 Reason: seizure TECHNIQUE: Contiguous 5 mm images [...] Cristiane Heath Technologist: Edel BURNS Trscrpt Dt/ (2018)t.FABIW Orig Print D/T: S: 09/14/2018 (2021) CTDI: DLP: [facility] NAME: HEATHER HOPE [address] [address] [facility] PHYS: NGA. Keanu Váz[place] [address] : 1990 AGE: 27 SEX: F LOC: D.NER PHONE#: [phone] EXAM DATE: 09/14/2018 STATUS: REG ER FAX #: RAD NO: DC Dt: PAGE 1 Signed Report- XR CHEST 1 [id number] 20:18:00 Patient Name: HEATHER HOPE Unit No: [id number] EXAMS: CPT CODE: [id number] XR CHEST 1 V 07537 Reason: screen for pneumonia FINDINGS: Single view ofthe chest shows normal heart size and pulmonary vasculature. The lungs are clear bilaterally. There is no focal infiltrate, pleural effusion or pneumothorax. IMPRESSION: No a cute cardiopulmonary findings at 2018 Reported and signed by: Lashell Jimenez MD CC: Keanu Vázquez MD; Cristiane Heath Technologist: Edel BURNS Trscrpt Dt/ (2017)tHELENDKW Orig PrintD/T: S: 09/14/2018 (2020) [facility] NAME: HEATHER HOPE [address] PHYS: NGA. - Keanu Váz[place] [address] : 1990 AGE: 27 SEX: F LOC: MATT PHONE #: [phone] EXAM DATE: STATUS: REG ER FAX #: RAD NO: DC Dt: PAGE 1 Signed ReportHCG SERUM [id number] 20:04:00 Test Item Value Reference Range Interpretation [...] using aquantitative h CG assay. BASIC METABOLIC [id number] 19:51:00 Test Item Value Reference Range Interpretation [...] 9.3 MG/DL 8.7-10.5 N CA) CBC W/AUTO [id number] 19:46:00 Test Item Value Reference Range Interpretation [...] BA#) 0.05 x10 3/uL 0.0-0.2 N BLOOD [id number] 10:00:00 Test Item Value Reference Range Interpretation Comments CULTURE (BEAKER) (test No growth in 5 days code = 1095) HCG, QUANTITATIVE, [id number] 15:37:00 Test Item Value Reference Range Interpretation Comments GONADOTROPIN, CHORIONIC (HCG) 49957 mIU/mL 0-10 H QUANT (BEAKER) (test code = 649) Non- Females: <10 mIU/mL Females: Gestation Age Reference Range(mIU/mL) 0.2-1 Week 5-50 1-2 Weeks 50-500 2-3 Weeks 100-5,000 3-4Weeks 500-10,000 4-5 Weeks 1,000-50,000 5-6 Weeks 10,000-100,000 6-8 Weeks 15,000-200,000 2-3 Months 10,000-100,000COMPREHENSIVE METABOLIC [id number] 15:10:00 Test Item Value Reference Range Interpretation [...] PATIEN TS. CBC W/PLT COUNT & AUTO [id number] 14:53:00 Test Item Value Reference Range Interpretation [...] (test code = 2801) U/S, , FIRST [id number] 07:52:00Reason for exam:-> Reason for exam:->please include [...] 1 day. An embryonic pole is evident. Massac-rump length measures 0.63 cm, correlating with estimated [...] 05/17/2017 07:52:37 Reading Location: [facility] C013X Ortho Consult Reading Room PREGNANCY SCREEN, [id number] 05:28:00 Test Item Value Reference Range Interpretation Comments TEST URINE (BEAKER) (test Positive code = 583) MR, BRAIN, WITHOUT [id number] 18:54:00Reason for exam:->Stroke evaluationFINAL REPORT MRI brain [...] but otherwise unremarkable noncontrast examination. Signed: Brandon Parra Verified Date/Time: 05/15/2017 18:54:11 Reading Location: [facility] Radiology Reading Room EEG AWAKE AND [id number] 12:08:00Reason for exam:->? nonconvulsive statusDATE OF TEST: 05/15/2017DATE OF REPORT 05/15/2017 ACC: [id number] EE Start time: 1034 Stop time: 1054 ICD-10: R56.9CPT Code: 78197UFGXMZC: 26 y/o woman with epilepsy found down [...] recordings.Marika Smith M.D.Neurophysiology FellowSwathi Harper M.D.Neurophysiology Attending [id number] 04:27:00 Test Item Value Reference Range Interpretation Comments PROCALCITONIN (BEAKER) (test code 0.17 ng/mL <0.05 H = 3036) SEPSIS RISK (ng/mL)Low: 0.05-0.50Intermediate: 0.51-2.00High: >=[id number] 03:15:00 Test Item Value Reference Range Interpretation Comments PHOSPHORUS (BEAKER) (test code = 3.1 mg/dL 2.3-4.7 604) [id number] 03:15:00 Test Item Value Reference Range Interpretation Comments MAGNESIUM (BEAKER) (test code = 1.9 mg/dL 1.6-2.6 627) BASIC METABOLIC [id number] 03:15:00 Test Item Value Reference Range Interpretation [...] code = 380) LACTIC ACID, VENOUS, WHOLE [id number] 03:09:00 Test Item Value Reference Range Interpretation Comments LACTATE BLOOD VENOUS (2) (BEAKER) 0.6 mmol/L 0.5-2.2 (test code = 2872) Effective 10/17/2015: Units/Reference Range ChangeNew: 0.5-2.2 mmol/L Previous: 5-20 mg/dLPROTHROMBIN TIME/[id number] 03:07:00 Test Item Value Reference Range Interpretation [...] = 2801) RAD, CHEST, 1 VIEW, NON [id number] 01:06:00Reason for exam:->possible infectionShould this be performed at the bedside?->YesFINAL REPORT History: Infection. Comparison: None. Findings: A single view of the chest is submitted. The cardiomediastinal contours are unremarkable. There is no focal consolidation, pneumothorax, large pleural effusion or evidence of overt pulmonary edema. There is no acute bony abnormality. Impression: No acute abnormality. Signed: Shabnam Zhu Verified Date/Time: 05/15/2017 01:06:06 Reading Location: [address] Reading Room
[2019-12-14 22:27] LABS: Absolute Lymphocytes (CBC) 2.2 K/uL (0.7-4.9); Basophils % 0.6 % (0-1.3); Hematocrit 33.1 % (36.0-45.0); Lymphocytes % 26.1 % (15.3-44.8); MPV 8.1 fL (7.6-11.3); RBC Red Blood Cell Count 3.88 M/uL (3.86-4.86)
[2019-12-14 22:32] LABS: Protime INR 0.97
[2019-12-14 22:41] LABS: ALT/SGPT 19 U/L (12-78); AST/SGOT 15 U/L (15-37); Albumin 3.2 g/dL (3.4-5.0); Alkaline Phosphatase 65 U/L (45-117); BUN Blood Urea Nitrogen 8 mg/dL (7-18); Bicarbonate 22 mmol/L (21-32); Bilirubin Direct < 0.1 mg/dL (0-0.2); Bilirubin Total 0.2 mg/dL (0.2-1.0); CKMB Creatine Kinase MB < 1.0 ng/mL (0.3-3.6); Creatine Phosphokinase 88 U/L (26-192); Glucose Level 87 mg/dL (74-106); Lipase 47 U/L (73-393); Magnesium 1.9 mg/dL (1.8-2.4); Potassium 3.7 mmol/L (3.5-5.1); Protein, Total 6.4 g/dL (6.4-8.2); Sodium Level 141 mmol/L (136-145); Troponin (Emerg Dept Use Only) < 0.02 ng/mL (0.0-0.045)
[2019-12-14] MEDS ORDERED: LIDOCAINE 1% MPF 5 ML VIAL ONE (23:15)
[2019-12-14] MEDS ORDERED: CEFAZOLIN/SWI 1gm 1 GM/10 ML SYR ONE (23:36)
[2019-12-14] MEDS ORDERED: TETANUS & DIPHTHERIA TOX,ADULT 0.5 ML VIAL ONE (23:36)
[2019-12-15 00:42] LABS: Barbiturates NEGATIVE (NEGATIVE); Benzodiazepines NEGATIVE (NEGATIVE); Cocaine NEGATIVE (NEGATIVE); METHAMPHETAM NEGATIVE (NEGATIVE); Methadone NEGATIVE (NEGATIVE); Opiates NEGATIVE (NEGATIVE); Phencyclidine NEGATIVE (NEGATIVE); THC Cannibis NEGATIVE (NEGATIVE)
--- NOTE | 2019-12-15 01:07 | EDPHYS ---
Physician Documentation [facility] Name: Heather Hope Age: 29 yrs Sex: Female : 1990 Arrival Date: 12/14/2019 Time: 21:44 Bed 3 Private MD: ED Physician Steve Lawrence HPI: 12/13 23:07 This 29 yrs old Female presents to ER via EMS with complaints of Syncope, issac Probable Seizure. 23:07 The patient has experienced syncope, became unresponsive, collapsed. Onset: The issac symptoms/episode began/occurred just prior to arrival. Duration: This was a single episode, that lasted an unknown period of time. Context: the episode(s) was witnessed, by a bystander. Associated injury: Head/face: mouth, laceration, pain, swelling. Associated signs and symptoms: Pertinent positives: weakness. Unable to obtain HPI due to post ictal. Historical: - Allergies: 12/14 01:46 No Known Allergies; sg - PMHx: 01:46 Seizures; Anemia; sg - PSHx: 01:46 None; sg - Immunization history:: Adult Immunizations unknown. - Social history:: Smoking status: unknown. - Family history:: not pertinent. ROS: 12/13 23:07 Constitutional: Negative for fever, chills, and weight loss, Eyes: Negative for injury, issac pain, redness, and discharge, Neck: Negative for injury, pain, and swelling, Cardiovascular: Negative for chest pain, palpitations, and edema, Respiratory: Negative for shortness of breath, cough, wheezing, and pleuritic chest pain, Abdomen/GI: Negative for abdominal pain, nausea, vomiting, diarrhea, and constipation, Back: Negative for injury and pain, : Negative for injury, bleeding, discharge, and swelling, MS/Extremity: Negative for injury and deformity, Skin: Negative for injury, rash, and discoloration, Psych: Negative for depression, anxiety, suicide ideation, homicidal ideation, and hallucinations, Allergy/Immunology: Negative for hives, rash, and allergies, Endocrine: Negative for neck swelling, polydipsia, polyuria, polyphagia, and marked weight changes, Hematologic/Lymphatic: Negative for swollen nodes, abnormal bleeding, and unusual bruising. ENT: Positive for dental pain, injury or acute deformity, of the mouth. Neuro: Positive for altered mental status, weakness. Exam: 23:07 Constitutional: This is a well developed, well nourished patient who is awake, alert, issac and in no acute distress. Eyes: Pupils equal round and reactive to light, extra-ocular motions intact. Lids and lashes normal. Conjunctiva and sclera are non-icteric and not injected. Cornea within normal limits. Periorbital areas with no swelling, redness, or edema. Neck: Trachea midline, no thyromegaly or masses palpated, and no cervical lymphadenopathy. Supple, full range of motion without nuchal rigidity, or vertebral point tenderness. No Meningismus. Chest/axilla: Normal chest wall appearance and motion. Nontender with no deformity. No lesions are appreciated. Cardiovascular: Regular rate and rhythm with a normal S1 and S2. No gallops, murmurs, or rubs. Normal PMI, no JVD. No pulse deficits. Respiratory: Lungs have equal breath sounds bilaterally, clear to auscultation and percussion. No rales, rhonchi or wheezes noted. No increased work of breathing, no retractions or nasal flaring. Abdomen/GI: Soft, non-tender, with normal bowel sounds. No distension or tympany. No guarding or rebound. No evidence of tenderness throughout. Back: No spinal tenderness. No costovertebral tenderness. Full range of motion. Skin: Warm, dry with normal turgor. Normal color with no rashes, no lesions, and no evidence of cellulitis. MS/ Extremity: Pulses equal, no cyanosis. Neurovascular intact. Full, normal range of motion. Psych: Awake, alert, with orientation to person, place and time. Behavior, mood, and affect are within normal limits. 23:07 Head/face: Noted is contusion, swelling, tenderness, that is moderate, of the mouth. 23:07 Neuro: Orientation: unable to test, Mentation: unable to test, post ictal, Cranial nerves: no acute changes, Cerebellar function: unable to test, Motor: moves all fours, Sensation: unable to test, Gait: not tested. seizure activity, is not displayed by the patient. Vital Signs: 22:03 BP 127 / 87; Pulse 96; Resp 18; Pulse Ox 99% on R/A; ea 12/14 00:39 BP 130 / 90; Pulse 81; Resp 18; Pulse Ox 100% on R/A; ea Laceration: 12/13 23:07 Wound Repair of 1cm ( 0.4in ) subcutaneous laceration to lower lip. Irregularly issac shaped.. Distal neuro/vascular/tendon intact. Anesthesia: Local anesthetic administered with 3 mls of 1% lidocaine. Wound prep: Simple cleansing by me. Skin closed with 2 1-0 Prolene using simple sutures and sterile technique. Dressed with Neosporin. Patient tolerated well. MDM: 22:53 Patient medically screened. [facility] 23:07 Differential Diagnosis: drug effect, , vasovagal episode. Data reviewed: vital issac signs, nurses notes, EMS record, lab test result(s), EKG, radiologic studies, CT scan. Data interpreted: equipment monitor phototypesetting: rate is 96 beats/min, rhythm is regular, Pulse oximetry: on room air is 99 %. Test interpretation: by ED physician or midlevel provider: ECG, plain radiologic studies. Counseling: I had a detailed discussion with the patient and/or guardian regarding: the historical points, exam findings, and any diagnostic results supporting the discharge/admit diagnosis, lab results, radiology results, the need for outpatient follow up, for definitive care, a neurosurgeon. 12/14 01:05 ED course: pt awake, patient knows to follow up, return if worsens. [facility] 12/13 21:48 Order name: FSBG - FOR PT WITH NO ID; Complete Time: 00:11 12/13 22:04 Order name: Basic Metabolic Panel; Complete Time: 00:11 12/13 22:04 Order name: CBC with Diff; Complete Time: 00:11 12/13 22:04 Order name: Ckmb; Complete Time: 00:11 12/13 22:04 Order name: CPK; Complete Time: 00:11 12/13 22:04 Order name: Hepatic Function; Complete Time: 00:11 12/13 22:04 Order name: Lipase; Complete Time: 00:11 12/13 22:04 Order name: Magnesium; Complete Time: 00:11 12/13 22:04 Order name: Protime (+inr); Complete Time: 00:11 12/13 22:04 Order name: Ptt, Activated; Complete Time: 00:11 12/13 22:04 Order name: Troponin (emerg Dept Use Only); Complete Time: 00:11 12/13 23:07 Order name: UDS; Complete Time: 01:05 [facility] 12/13 23:07 Order name: CT Head C Spine [facility] 12/13 22:04 Order name: EKG; Complete Time: 22:06 12/13 22:04 Order name: Cardiac monitoring; Complete Time: 22:05 12/13 22:04 Order name: EKG - Nurse/Tech; Complete Time: 22:05 12/13 22:04 Order name: IV Saline Lock; Complete Time: 22:06 12/13 22:04 Order name: Labs collected and sent; Complete Time: 22:06 12/13 22:04 Order name: NPO; Complete Time: 22:06 12/13 22:04 Order name: O2 Per Protocol; Complete Time: 22:06 12/13 22:04 Order name: O2 Sat Monitoring; Complete Time: 22:06 12/13 23:07 Order name: Prolene, Sutures; Complete Time: 23:10 [facility] 12/13 23:07 Order name: Dressing - Wound; Complete Time: 23:10 [facility] 12/13 23:07 Order name: Gloves, Sterile; Complete Time: 23:10 [facility] 12/13 23:07 Order name: CT Facial Bones W/O Con [facility] 12/13 23:07 Order name: Setup Suture Tray; Complete Time: 23:10 [facility] 12/13 23:07 Order name: Seizure Precautions; Complete Time: 23:10 [facility] Administered Medications: 12/13 23:22 Drug: Lidocaine (2 %) 2 ml {Note: administered by provider.} Volume: 5 ml; Route: ea Infiltration; 12/14 00:20 Drug: Ancef 1 grams Route: IVPB; Site: left antecubital; ea 00:22 Drug: Tetanus-Diphtheria Toxoid Adult 0.5 ml {Felt Dyeing Machine Tender: [employer]. Exp: ls4 07/29/2021. Lot #: [id number]. } Route: IM; Site: right deltoid; Disposition: 12/15/19 01:06 Discharged to Home. Impression: Syncope and collapse, Epileptic seizures related to external causes, Laceration without foreign body of other part of head - lip, lower. - Condition is Stable. - Discharge Instructions: Facial Laceration, Syncope, Near-Syncope, [id number], Facial Laceration, Anud-fa-Oukb, Syncope, Hflm-wf-Wyak. - Prescriptions for Keflex 500 mg Oral Capsule - take 1 capsule by ORAL route every 6 hours for 7 days; 28 capsule. Keppra 500 mg Oral Tablet - take 1 tablet by ORAL route every 12 hours; 20 tablet. - Medication Reconciliation Form, Thank You Letter, Antibiotic Education, Prescription Opioid Use form. - Follow up: Private Physician; When: 2 - 3 days; Reason: Recheck today's complaints, Continuance of care, Re-evaluation by your physician. Follow up: Srinivas German; When: 2 - 3 days; Reason: Recheck today's complaints, Re-evaluation by your physician. - Problem is new. - Symptoms have improved. Signatures: Dispatcher [employer] EDBart Koch RN Steve Umaña MD MD cha Antunez, Elena RN Bernarda Sorensen ea, RN RN ls4 Corrections: (The following items were deleted from the chart) 02:03 01:06 12/15/2019 01:06 Discharged to Home. Impression: Syncope and collapse; Epileptic ea seizures related to external causes; Laceration without foreign body of other part of head - lip, lower. Condition is Stable. Discharge Instructions: Facial Laceration, Syncope, Near-Syncope, Eych-gu-Canj, Facial Laceration, Csqc-bt-Gsgl, Syncope, Gjuo-en-Umtw. Prescriptions for Keflex 500 mg Oral Capsule - take 1 capsule by ORAL route every 6 hours for 7 days; 28 capsule, Keppra 500 mg Oral Tablet - take 1 tablet by ORAL route every 12 hours; 20 tablet. and Forms are Medication Reconciliation Form, Thank You Letter, Antibiotic Education, Prescription Opioid Use. Follow up: Private Physician; When: 2 - 3 days; Reason: Recheck today's complaints, Continuance of care, Re-evaluation by your physician. Follow up: Srinivas German; When: 2 - 3 days; Reason: Recheck today's complaints, Re-evaluation by your physician. Problem is new. Symptoms have improved. issac
--- NOTE | 2019-12-15 01:07 | ER ---
Nurse's Notes [facility] Name: Heather Hope Age: 29 yrs Sex: Female : 1990 Arrival Date: 12/14/2019 Time: 21:44 Bed 3 Private MD: Diagnosis: Syncope and collapse;Epileptic seizures related to external causes;Laceration without foreign body of other part of head-lip, lower Presentation: 12/13 21:45 Chief complaint: EMS states: A bystander reports the patient was walking in the parking sg lot with keys in hand when she fell face forward to the ground and sat herself up with bleeding to nose and lip, pt aa\T\ox1 per EMS, no one reported to EMS any seizure like activity, just that the patient fell forward hitting head on the parking lot pavement. Coronavirus screen: Proceed with normal triage. Ebola Screen: Patient negative for fever greater than or equal to 101.5 degrees Fahrenheit, and additional compatible Ebola Virus Disease symptoms Patient denies exposure to infectious person. Patient denies travel to an Ebola-affected area in the 21 days before illness onset. No symptoms or risks identified at this time. Initial Sepsis Screen: Does the patient meet any 2 criteria? No. Patient's initial sepsis screen is negative. Does the patient have a suspected source of infection? No. Patient's initial sepsis screen is negative. Risk Assessment: Do you want to hurt yourself or someone else? Patient reports no desire to harm self or others. Onset of symptoms was December 14, 2019. Care prior to arrival: Cervical collar in place. Placed on backboard. IV initiated. 20 GA, in the left antecubital area, Glucose check: 119 Oxygen administered. via nasal cannula. Transition of care: patient was not received from another setting of care. 21:45 Acuity: DARLYN 3 sg 21:45 Method Of Arrival: EMS: [facility] sg Historical: - Allergies: 12/14 01:46 No Known Allergies; sg - PMHx: 01:46 Seizures; Anemia; sg - PSHx: 01:46 None; sg - Immunization history:: Adult Immunizations unknown. - Social history:: Smoking status: unknown. - Family history:: not pertinent. Screenin/01 21:57 Abuse screen: Denies threats or abuse. Nutritional screening: No deficits noted. ea Tuberculosis screening: No symptoms or risk factors identified. Fall Risk IV access (20 points). Assessment: 22:01 General: Appears pt reacts to painful stimulus . Behavior is drowsy. Pain: Unable to ea use pain scale. FLACC scale score is 2 out of 10. Neuro: Level of Consciousness is post ictal, Oriented to none. Cardiovascular: Patient's skin is warm and dry. Respiratory: Airway is patent Respiratory effort is even, unlabored, Respiratory pattern is regular, symmetrical. Derm: Skin is pink, warm \T\ dry. Injury Description: Laceration sustained to mouth is jagged, was sustained less than 30 minutes ago. a small amount of bleeding noted at this time. 23:00 Reassessment: Patient and/or family updated on plan of care and expected duration. Pain ea level reassessed. Pt resting with eyes closed, respirations even and unlabored. Chest expansions even and symmetrical. 12/14 00:37 Reassessment: Patient and/or family updated on plan of care and expected duration. Pain ea level reassessed. Pt resting with eyes closed, respirations even and unlabored, chest expansions even and symmetrical. Vital Signs: 12/13 22:03 BP 127 / 87; Pulse 96; Resp 18; Pulse Ox 99% on R/A; ea 12/14 00:39 BP 130 / 90; Pulse 81; Resp 18; Pulse Ox 100% on R/A; ea ED Course: 12/13 21:44 Patient arrived in ED. sg 21:47 Triage completed. sg 21:47 Arm band placed on. sg 21:57 Cammie Ramos, RN is Primary Nurse. ea 22:02 Patient has correct armband on for positive identification. Bed in low position. Call ea light in reach. Side rails up X2. color television console monitor on. Pulse ox on. NIBP on. 22:02 Maintain EMS IV. Dressing intact. Good blood return noted. Site clean \T\ dry. Gauge \T\ ea site: 20G Left hand. 22:53 Steve Lawrence MD is Attending Physician. issac 23:38 Assist provider with laceration repair on mouth that was 2.5 cm. or less using royal. ea Set up tray. Performed by Steve Lawrence MD Patient tolerated well. 12/14 00:10 CT Head C Spine In Process Unspecified. EDMS 00:10 CT Facial Bones W/O Con In Process Unspecified. EDMS 01:06 Srinivas German MD is Referral Physician. issac Administered Medications: 12/13 23:22 Drug: Lidocaine (2 %) 2 ml {Note: administered by provider.} Volume: 5 ml; Route: ea Infiltration; 12/14 00:20 Drug: Ancef 1 grams Route: IVPB; Site: left antecubital; ea 00:22 Drug: Tetanus-Diphtheria Toxoid Adult 0.5 ml {Publicity Consultant: [employer]. Exp: ls4 07/29/2021. Lot #: [id number]. } Route: IM; Site: right deltoid; Outcome: 01:06 Discharge ordered by . issac 02:03 Patient left the ED. ea Signatures: Dispatcher [employer] EDNC Bart Maguire, RN Steve Umaña MD MD cha Antunez, Elena RN RN Bernarda Conway RN RN ls4
[2019-12-15 02:10] VITALS: BP 130/90; O2SAT 100
--- NOTE | 2019-12-15 14:09 | RAD REPORT ---
EXAM DESCRIPTION: CT - [id number] - 12/15/2019 8:28 am CLINICAL HISTORY: The patient is 29 years old and is Female; PAIN TECHNIQUE: Axial computed tomography images of the head/brain and cervical spine without intravenous contrast. Sagittal and coronal reformatted images were created and reviewed. This CT exam was pe rformed using one or more of the following dose reduction techniques: automated exposure control, a djustment of the mA and/or kV according to patient size, and/or use of iterative reconstruction techn ique. COMPARISON: No relevant prior studies available. FINDINGS: BRAIN: Unremarkable. No hemorrhage. No significant white matter disease. No edema. VENTRICLES: Unremarkable. No ventriculomegaly. SKULL: No acute fracture. SINUSES: Unremarkable as visualized. No acute sinusitis. MASTOID AIR CELLS: Unremarkable as visualized. No mastoid effusion. VERTEBRAE: The vertebral body heights and alignment are maintained. No acute fracture. DISCS/SPINAL CANAL/NEURAL FORAMINA: The intervertebral disc spaces are maintained. No spinal can al stenosis. SOFT TISSUES: The soft tissues are normal. LUNG APICES: Unremarkable as visualized. IMPRESSION: 1. No acute intracranial findings. 2. No fracture or malalignment of the cervical spine. EXAM DESCRIPTION: CT Maxillofacial Without Intravenous Contrast CLINICAL HISTORY: The patient is 29 years old and is Female; PAIN TECHNIQUE: Axial computed tomography images of the face without intravenous contrast. Sagittal and coronal reformatted images were created and reviewed. This CT exam was performed using one or more of the following dose reduction techniques: automated exposure control, adjustment of the mA and/o r kV according to patient size, and/or use of iterative reconstruction technique. COMPARISON: No relevant prior studies available. FINDINGS: BONES/JOINTS: The orbital floors and bob are intact. The zygomatic arches and pteryg oid plates are intact. The visualized maxilla and mandible are intact. SOFT TISSUES: Unremarkable. ORBITS: The globes, extraocular muscles, and optic nerve complexes are within normal limits. SINUSES: The visualized paranasal sinuses are clear. No air-fluid levels. NASAL CAVITY/SEPTUM: The nasal bones are intact. IMPRESSION: No acute facial fracture. Electronically signed by: Tiffany Funes MD 12/15/2019 12:22 AM CDT Due to temporary technical issues with the PACS/Fluency reporting system, reports are being signed by the in house radiologist as a courtesy to ensure prompt reporting. The interpreting radiologist is f ully responsible for the content of the report.
--- NOTE | 2019-12-15 14:12 | RAD REPORT ---
EXAM DESCRIPTION: CT - Facial Bones W/ Mpr - 12/15/2019 8:28 am CLINICAL HISTORY: The patient is 29 years old and is Female; PAIN TECHNIQUE: Axial computed tomography images of the head/brain and cervical spine without intravenous contrast. Sagittal and coronal reformatted images were created and reviewed. This CT exam was pe rformed using one or more of the following dose reduction techniques: automated exposure control, a djustment of the mA and/or kV according to patient size, and/or use of iterative reconstruction techn ique. COMPARISON: No relevant prior studies available. FINDINGS: BRAIN: Unremarkable. No hemorrhage. No significant white matter disease. No edema. VENTRICLES: Unremarkable. No ventriculomegaly. SKULL: No acute fracture. SINUSES: Unremarkable as visualized. No acute sinusitis. MASTOID AIR CELLS: Unremarkable as visualized. No mastoid effusion. VERTEBRAE: The vertebral body heights and alignment are maintained. No acute fracture. DISCS/SPINAL CANAL/NEURAL FORAMINA: The intervertebral disc spaces are maintained. No spinal can al stenosis. SOFT TISSUES: The soft tissues are normal. LUNG APICES: Unremarkable as visualized. IMPRESSION: 1. No acute intracranial findings. 2. No fracture or malalignment of the cervical spine. EXAM DESCRIPTION: CT Maxillofacial Without Intravenous Contrast CLINICAL HISTORY: The patient is 29 years old and is Female; PAIN TECHNIQUE: Axial computed tomography images of the face without intravenous contrast. Sagittal and coronal reformatted images were created and reviewed. This CT exam was performed using one or more of the following dose reduction techniques: automated exposure control, adjustment of the mA and/o r kV according to patient size, and/or use of iterative reconstruction technique. COMPARISON: No relevant prior studies available. FINDINGS: BONES/JOINTS: The orbital floors and bob are intact. The zygomatic arches and pteryg oid plates are intact. The visualized maxilla and mandible are intact. SOFT TISSUES: Unremarkable. ORBITS: The globes, extraocular muscles, and optic nerve complexes are within normal limits. SINUSES: The visualized paranasal sinuses are clear. No air-fluid levels. NASAL CAVITY/SEPTUM: The nasal bones are intact. IMPRESSION: No acute facial fracture. Electronically signed by: Tiffany Funes MD 12/15/2019 12:22 AM CDT Due to temporary technical issues with the PACS/Fluency reporting system, reports are being signed by the in house radiologist as a courtesy to ensure prompt reporting. The interpreting radiologist is f ully responsible for the content of the report.
== END 2019-12-15 02:03 | disposition home or self-care (01) ==
LOC: ER 21:46
PROC: 0CQ1XZZ Repair Lower Lip, External Approach (ICD-10-PCS; principal; 2019-12-15)
DX: G40.509 Epileptic seizures related to external causes, not intractable, without status epilepticus (principal); S01.511A Laceration without foreign body of lip, initial encounter; Z23 Encounter for immunization
CPT/HCPCS: 93005; 85025; 80048; 36415; 83735; 82550; 85610; 82947; 80076; 80307 ×8; 85730; 84484; 82553; 83690; 70450; 72125; 70486; 76377; 90471; 90714; 96374; 99284; 12011; J0690

== ENCOUNTER 2019-12-15 17:37 | Emergency (ER) | payer OTHER ==
[2019-12-15 19:59] LABS: Absolute Lymphocytes (CBC) 0.8 K/uL (0.7-4.9); Basophils % 0.3 % (0-1.3); Hematocrit 40.5 % (36.0-45.0); Lymphocytes % 6.5 % (15.3-44.8); MPV 8.3 fL (7.6-11.3); RBC Red Blood Cell Count 4.67 M/uL (3.86-4.86)
[2019-12-15 20:07] LABS: BUN Blood Urea Nitrogen 8 mg/dL (7-18); Bicarbonate 24 mmol/L (21-32); Glucose Level 109 mg/dL (74-106); Potassium 4.2 mmol/L (3.5-5.1); Sodium Level 138 mmol/L (136-145)
--- OUTSIDE RECORDS SUMMARY | 2019-12-15 21:14 | XMS REPORT | Clinical Summary ---
:1990 Author Organization [facility] Address [address] [place] [address] Care Team Providers Name Role Phone Asked, [...] Ebrahim, MD 10/31/2019 Travel 10/24/2019 Travel after 12/14/2018 Social History Tobacco Use Types Packs/Day Years [...] are i n the results section. after 12/14/2018 Results Continuous EEG monitoring (11/15/2019 9:41 AM [...] time period is included. Manual differential PERFORMED [facility] Neutrophils 51.0 39.0 - 69.0 % [facility] Lymphocytes 34.0 25.0 - 45.0 % [facility] Monocytes 13.0 (H) 0.0 - 10.0 % [facility] Eosinophils 2.0 0.0 - 5.0 % [facility] Basophils 0.0 0.0 - 1.0 % [facility] Metamyelocytes 0 % [facility] Promyelocytes 0 % [facility] Platelet slide review Sana adequate [facility] Anisocytosis Moderate [facility] Ovalocytes Moderate [facility] Enlarged platelets Moderate (A) [facility] Specimen Performing Organization Address City/State/Zipcode Phone Number [facility] DEPARTMENT OF PATHOLOGY AND [address] [place], [place] [address] GENOMIC MEDICINE [facility] [address] [place] [address] CBC with platelet and differential (11/15/2019 4:30 AM CDT)Only the most recent of3 resultswithin the time period is included. Pathologist Sig nature WBC 7.99 4.50 - 11.00 k/uL [facility] RBC 4.06 (L) 4.20 - 5.50 m/uL [facility] HGB 10.8 (L) 12.0 - 16.0 g/dL [facility] HCT 34.1 (L) 37.0 - 47.0 % [facility] MCV 84.0 82.0 - 100.0 fL [facility] MCH 26.6 (L) 27.0 - 34.0 pg [facility] MCHC 31.7 31.0 - 37.0 g/dL [facility] RDW - SD 48.1 37.0 - 55.0 fL [facility] MPV 10.2 8.8 - 13.2 fL [facility] Platelet count 251 150 - 400 k/uL [facility] Nucleated RBC 0.00 /100 WBC [facility] Neutrophils 51.0 39.0 - 69.0 % [facility] Lymphocytes 34.0 25.0 - 45.0 % [facility] Monocytes 13.0 (H) 0.0 - 10.0 % [facility] Eosinophils 2.0 0.0 - 5.0 % [facility] Basophils 0.0 0.0 - 1.0 % [facility] Specimen Blood Performing Organization Address City/State/Zipcode Phone Number [facility] DEPARTMENT OF PATHOLOGY AND [address] [place] [phone] GENOM[address] [address] Estimated GFR (11/15/2019 4:00 AM CDT)Only the most recent of3 resultswithin the time period is included. Estimated GFR >=90 mL/min/1.73 [facility] Comment: m2 HOSPITAL Catergory Units Interpretation [...] Specimen Performing Organization Address City/State/Zipcode Phone Number [facility] DEPARTMENT OF PATHOLOGY AND [address] [place] [address] [phone] [address] Basic metabolic panel (11/15/2019 4:00 AM CDT)Only the most recent of2 results within the time period is included. Pathologist Sig nature Sodium 135 135 - 148 mEq/L [facility] Potassium 3.4 (L) 3.5 - 5.0 mEq/L [facility] Chloride 103 98 - 112 mEq/L [facility] CO2 21 (L) 24 - 31 mEq/L [facility] Anion gap 11@ANIO 7 - 15 mEq/L [facility] BUN 9 6 - 20 mg/dL [facility] Creatinine 0.48 (L) 0.50 - 0.90 mg/dL [facility] Glucose 95 65 - 99 mg/dL [facility] Calcium 9.2 8.3 - 10.2 mg/dL [facility] Specimen Blood Performing Organization Address City/State/Zipcode Phone Number [facility] DEPARTMENT OF PATHOLOGY AND [address] [place] [phone] Continuous EEG monitoring (11/15/2019 1:22 AM CDT) [...] binding capacity (11/13/2019 4:00 AM CDT) Pathologist [facility] nature Iron level 20 (L) 37 - 145 ug/dL [facility] Iron binding capacity 335 200 - 400 ug/dL [facility] % Saturation 6.0 (L) 15.0 - 38.0 % [facility] Specimen Blood Performing Organization Address City[facility] Phone Number [facility] DEPARTMENT OF PATHOLOGY AND [address] [place], [place] [phone] Ferritin level (11/13/2019 4:00 AM CDT) Pathologist Sig [facility] Ferritin level <13 (A) 13 - 150 ng/mL [facility] Specimen Blood Performing Organization Address City[facility] Phone Number [facility] DEPARTMENT OF PATHOLOGY AND [address] [place] [phone] MRI Brain W Wo Contrast (11/13/2019 2:16 [...] or cuco-ictal hyperperfusion to localize seizure focus. [id number] Procedure Note [facility], Radiology Results - 11/13/2019 6:14 AM CDT EXAMINATION: MRI BRAIN W WO CONTRAST CLINICAL HISTORY: Seizure protocol COMPARISON: Head CT on 11/12/2019 TECHNIQUE: Brain MRI without and with in travenous gadolinium contrast, seizure protocol, including high resolution 3D T1 DWOD, coronal oblique T2 FSE and T2 FLAIR, [...] or cuco-ictal hyperperfusion to localize seizure focus. [id number] Performing Organization Address City/State/Zipcode Phone Number [facility] [address] [place] [address] ECG 12 lead (11/12/2019 9:10 PM CDT) Pathologist Sig nature Ventricular rate 81 [facility] Atrial rate 81 [facility] RI interval 164 [facility] QRSD interval 84 [facility] QT interval 386 [facility] QTC interval 448 [facility] P axis 1 52 [facility] MUSE QRS axis 1 4 [facility] T wave axis 13 [facility] EKG impression Normal sinus [facility] MUSE rhythm-Normal ECG-No previous ECGs available-Electronicall y Signed By Adrian Ibarra MD ([id number]) on 11/13/2019 8:07:25 PM Specimen Narrative Performed At This result has an attachment that is no t available. Performing Organization Address [facility] Phone Number [facility] MUSE [address] [place] [phone] Syphilis total antibody (11/12/2019 7:40 PM CDT) Pathologist [facility] [place] Syphilis total Non-reactiveComment Non-reactive [facility] antibody : No serological HOSPITAL evidence of syphilis infection. Specimen Serum Performing Organization Address [facility] Phone Number [facility] DEPARTMENT OF PATHOLOGY AND [address] [place] [address] [phone] [address] HIV Ag/Ab combination (11/12/2019 7:40 PM CDT) Pathologist [facility] [place] HIV Ag/Ab combination Non-reactive Non-reactive [facility] Specimen Blood Performing Organization Address [place]/[facility] Phone Number [facility] DEPARTMENT OF PATHOLOGY AND [address] [place] [address] [phone] [address] Homocystine, plasma (11/12/2019 7:40 PM CDT) Pathologist [facility] Homocysteine 10.3 0.0 - 15.0 [facility] Comment: umol/L HOSPITAL The risk for coronary vascular disease increases progr essively with homocysteine concentration. A 3.4 times greater risk is associated with a homocysteine concentration of greate r than 15.8 umol/L as compared to a concentration below 14.1 umol/L. Specimen Blood Performing Organization Address City/[facility]/Zipcode Phone Number [facility] DEPARTMENT OF PATHOLOGY AND [address] [place] [address] [phone] [address] MARCELINO titer (11/12/2019 7:40 PM CDT) Pathologist Sig nature MARCELINO titer 1:160 (A) Not-Detected [facility] MARCELINO pattern Homogeneous (A) Not-Detected [facility] Specimen Blood Performing Organization Address City/[facility]/Zipcode Phone Number [facility] DEPARTMENT OF PATHOLOGY AND [address] [place] [address] [phone] [address] Vitamin D 25 hydroxy level (11/12/2019 7:40 PM CDT) Vitamin D, 13.6 (L) 30.0 - 150.0 [facility] 25-hydroxy Comment: ng/mL HOSPITAL This assay [...] Blood Performing Organization Address City/State/Zipcode Phone Number [facility] DEPARTMENT OF PATHOLOGY AND [address] [place] [address] [phone] [address] Prolactin level (11/12/2019 7:40 PM CDT) Pathologist Sig nature Prolactin 22 5 - 23 ng/mL [facility] Specimen Performing Organization Address City/State/Zipcode Phone Number [facility] DEPARTMENT OF PATHOLOGY AND [address] [place] [address] [phone] [address] Sedimentation rate (11/12/2019 7:40 PM CDT) Pathologist Sig [facility] Sedimentation rate 9 0 - 20 mm/hr [facility] Specimen Blood Performing Organization Address City[facility] Phone Number [facility] DEPARTMENT OF PATHOLOGY AND [address] [place] [address] [place] [phone] Rheumatoid factor (11/12/2019 7:40 PM CDT) Pathologist [facility] Rheumatoid factor <10 0 - 13 IU/mL [facility] Specimen Blood Performing Organization Address [place]/[facility] Phone Number [facility] DEPARTMENT OF PATHOLOGY AND [address] [place] [address] [place] [phone] C-reactive protein (11/12/2019 7:40 PM CDT) Pathologist [facility] CRP <0.30 0.00 - 0.50 mg/dL [facility] Specimen Blood Performing Organization Address [facility] Phone Number [facility] DEPARTMENT OF PATHOLOGY AND [address] [place] [phone] MARCELINO (11/12/2019 7:40 PM CDT) MARCELINO screen Positive (A) Negative [facility] Comment: HOSPITAL Test performed using NOVA Lite DAPI MARCELINO kit (Indirect Immunofluorescence Assay) for Anti-Nuclear Antibody on SocureA-Lyser 160 Analyzer. Specimen Blood Performing Organization Address [place]/[facility] Phone Number [facility] DEPARTMENT OF PATHOLOGY AND [address] [place] [address] Thyroid stimulating hormone (11/12/2019 7:40 PM CDT) Pathologist Sig [facility] TSH 2.21 0.27 - 4.20 uIU/mL [facility] Specimen Blood Performing Organization Address [place] Phone Number [facility] DEPARTMENT OF PATHOLOGY AND [address] [place] [address] [place] [address] T4, free (11/12/2019 7:40 PM CDT) Pathologist [facility] T4, free 1.2 0.9 - 1.7 ng/dL [facility] Specimen Blood Performing Organization Address City[facility] Phone Number [facility] DEPARTMENT OF PATHOLOGY AND [address] [place] [address] [phone] [address] Folate level (11/12/2019 7:40 PM CDT) Pathologist Sig [facility] Folate 9.3 4.8 - 24.2 ng/mL [facility] Specimen Serum Performing Organization Address [place] Phone Number [facility] DEPARTMENT OF PATHOLOGY AND [address] [place] [address] [phone] [address] Vitamin B12 level (11/12/2019 7:40 PM CDT) [facility] Vitamin B12 466 211 - 946 [facility] Comment: pg/mL HOSPITAL Significant overlap exists between normal and deficien cy states. However, most patients with deficiencies will have Ser um B12 <200 pg/mL. Specimen Serum Performing Organization Address [place]/[facility] Phone Number [facility] DEPARTMENT OF PATHOLOGY AND [address] [place] [address] [phone] [address] Creatine kinase, total (CPK) (11/12/2019 7:40 PM CDT) Pathologist [facility] Creatine kinase 56 26 - 192 U/L [facility] Specimen Performing Organization Address [place] Phone Number [facility] DEPARTMENT OF PATHOLOGY AND [address] [place] [address] [phone] [address] Cortisol level, random (11/12/2019 7:40 PM CDT) Pathologist [facility] [place] Cortisol, random 2 ug/dL [facility] Comment: HOSPITAL Reference Ranges are not established for non-timed Cor tisol levels. Reference Range for Timed Cortisol: 6 - 10 AM 6 - 18 ug/d l 4 - 8 PM 3 - 11 ug/ dl Specimen Blood Performing Organization Address [place] Phone Number [facility] DEPARTMENT OF PATHOLOGY AND [address] [place] [address] [phone] [address] [address] Cervical Spine Wo Contrast (11/12/2019 6:12 [...] subluxation identif ied in the cervical spine. [id number] Procedure Note Interface, Radiology Results Incoming - [...] subluxation identif ied in the cervical spine. [id number] Performing Organization Address City/State/Zipcode Phone Number [facility] [address] [place] [address] CT Maxillofacial Wo Contrast (11/12/2019 6:09 PM [...] unre markable. The paranasal sinuses are clear. [id number] Procedure Note Interface, Radiology Results Incoming - [...] unre markable. The paranasal sinuses are clear. [id number] Performing Organization Address City/State/Zipcode Phone Number [facility] [address] [place] [address] CT Head Wo Contrast (11/12/2019 6:09 PM [...] IMPRESSION: No acute intracranial abnormality identi fied. [id number] Procedure Note Interface, Radiology Results Incoming - [...] IMPRESSION: No acute intracranial abnormality identi fied. [id number] Performing Organization Address [place] Phone Number [facility] [address] [place] [address] XR Chest 1 Vw Portable (11/12/2019 5:35 PM CDT) Specimen Narrative Performed At EXAMINATION: XR CHEST 1 VW PORTABLE [facility] CL[facility]ICAL [facility]: SOB XR CHEST 1 VW PORTABLE images are subm itted COMPARISON: NONE FINDINGS: The cardiac silhouette is normal in size. The pulmonar y vasculature is within normal limits. The lung zones have no focal are a of consolidation. There is no pleural effus ion or pneumothorax. IMPRESSION: 1. There is no acute cardiopulmonary dis ease. [id number] Procedure Note Hm Interface, Radiology Results Incoming [...] There is no acute cardiopulmonary dis ease. [id number] Performing Organization Address [place]/[facility] Phone Number [facility] [address] [place] [address] Keppra (Levetiracetam) level (11/12/2019 5:04 PM CDT) Levetiracetam 30 12 - 46 ug/mL [facility] Comment: INTERPRETIVE INFORMATION: Keppra (Levetiracetam) Therapeutic Range: 12-46 ug/mL Toxic: Not well Established Pharmacokinetics of levetiracetam are affected by lamberto l function. Adverse effects may include somnolence, weakness, head ache and vomiting. This levetiracetam (Keppra) immunoassay uses the [employer] reagents, which has known cross-reactivity with the dr norma collinsracetam (Briviact) and may report inaccurate resu lts. Patients transitioning from levetiracetam to brivarace goldstein or those who are using both medications should not monitor drug concentrations with the [employer] assay. These p atients should be monitored using a validated chromatographic methodology that distinguishes between drugs to determine drug con centrations. Performed by [facility], [address] [place] [id number] [email or web address], Josué Barreto MD, Lab. Director Specimen Serum Performing Organization Address [place]/[facility]/Zipcode Phone Number [facility] [address] [place] [address] [facility] [address] [place] [address] Alcohol level, blood (11/12/2019 5:04 PM CDT) Alcohol None Detected mg/dL [facility] Comment: HOSPITAL Normal None Detected Legal Intoxication in [place] 80 mg/dL (0.08%) - Whole Blood Toxic Concentration 200 mg/dL (0.2%) Potentially Fatal 350 - 500 mg/dL (0. 35 - 0.5%) Alcohol percent None Detected % [facility] Specimen Blood Performing Organization Address City/[facility]/Zipcode Phone Number [facility] DEPARTMENT OF PATHOLOGY AND [address] [place] [phone] GENOMIC MEDICINE [address] [address] Comprehensive metabolic panel (11/12/2019 5:04 PM CDT) Sodium 142 135 - 148 [facility] mEq/L [facility] Potassium 3.7 3.5 - 5.0 [facility] mEq/L [facility] Chloride 106 98 - 112 [facility] mEq/L [facility] CO2 22 (L) 24 - 31 mEq/L [facility] Anion gap 14@ANIO 7 - 15 mEq/L [facility] BUN 4 (L) 6 - 20 mg/dL [facility] Creatinine 0.60 0.50 - 0.90 [facility] mg/dL HOSPITAL Glucose 98 65 - 99 mg/dL [facility] Calcium 9.4 8.3 - 10.2 [facility] mg/dL HOSPITAL Protein 7.2 6.3 - 8.3 [facility] Comment: g/dL HOSPITAL - [place] 4.6-7.0 g/dL 1 week 4.4-7.6 g/dL 7 months-1year 5.1-7.3 g/dL 1-2 years 5.6-7.5 g/dL >3 years 6.0-8.0 g/dL 18-150 6.3-8.3 g/dL Albumin 3.7 3.5 - 5.0 [facility] g/dL HOSPITAL A/G ratio 1.1 0.7 - 3.8 [facility] Alkaline phosphatase 79 35 - 104 U/L [facility] AST 29 10 - 35 U/L [facility] ALT 39 5 - 50 U/L [facility] Total bilirubin <0.2 0.0 - 1.2 [facility] mg/dL [facility] Specimen Blood Performing Organization Address City/State/Zipcode Phone Number [facility] DEPARTMENT OF PATHOLOGY AND [address] [place], [place] [phone] GENOMIC MEDIC[address] [address] Urinalysis screen and microscopy, with reflex to culture (11/12/2019 2:44 PM CDT) Specimen site Clean catch [facility] Color, UA Straw [facility] Appearance, UA Hazy [facility] Specific gravity, UA 1.020 1.001 - 1.035 [facility] pH, UA 8.0 5.0 - 8.5 [facility] Protein, UA Negative Negative [facility] Glucose, UA Negative Negative [facility] Ketones, UA Negative Negative [facility] Bilirubin, UA Negative Negative [facility] Blood, UA Negative Negative [facility] Nitrite, UA Negative Negative [facility] Urobilinogen, UA <2.0 <2.0 [facility] Leukocyte esterase, Negative Negative [facility] Epithelial cells, UA 6 /HPF [facility] WBC, UA <1 0 - 4 /HPF [facility] RBC, UA None seen 0 - 5 /HPF [facility] Bacteria, UA Few None seen [facility] Yeast, UA None seen [facility] Yeast with None seen [facility] pseudohyphae, UA HOSPITAL Specimen Urine Performing Organization Address City/[facility]/Zipcode Phone Number [facility] DEPARTMENT OF PATHOLOGY AND [address] [place] [address] [phone] [address] hCG qualitative, urine screen (11/12/2019 2:44 PM CDT) hCG qualitative, NegativeComment: [facility] urine Sensitivity of [facility] test: 25 mIU/mL Specimen Urine Performing Organization Address [facility] Phone Number [facility] DEPARTMENT OF PATHOLOGY AND [address] [place] [address] [phone] [address] Urine drugs of abuse screen (11/12/2019 2:44 PM CDT) Amphetamine screen, Negative SAYRE urine [facility] Barbiturate screen, Negative [facility] urine [facility] Benzodiazepine Negative [facility] screen, urine [facility] Cocaine screen, urine Negative [facility] Methadone metabolite Negative [facility] (EDDP), urine [facility] Opiates screen, urine Negative [facility] Oxycodone screen, Negative [facility] urine [facility] Phencyclidine screen, Negative [facility] urine [facility] Tricyclic screen, Negative [facility] urine [facility] Cannabinoid screen, Negative [facility] urine Comment: [facility] Drug screen minimum concentration of detectability HOSPITAL [...] requir ed. Specimen Urine Performing Organization Address [facility] Phone Number [facility] DEPARTMENT OF PATHOLOGY AND [address] [place] [address] [phone] [address] Urine culture (11/12/2019 2:44 PM CDT) Pathologist Sig nature Urine culture SEE COMMENTComment: [facility] Bacteriuria screen HOSPITAL negative. 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
--- OUTSIDE RECORDS SUMMARY | 2019-12-15 21:14 | XMS REPORT | Clinical Summary ---
:1990 Author Organization [facility] Address [address] [place] [address] Care Team Providers Name Role Phone Unavailable Primary Care Provider Unavailable Allergies No Known Allergies Medications Medication Sig Dispensed Refills Start Date End Date Status levETIRAcetam (KEPPRA) Take 1 tablet 60 tablet 2 05/19/2017 Active 1000 MG tablet (1,000 mg total) by mouth 2 (two) times daily. vitamin Take 1 tablet by 90 tablet 3 05/20/2017 Active w/roebetl-qtrh-pjxlgp mouth daily. ( PLUS) 27 mg iron- [...] Not on file Results Not on fileafter 12/14/2018 Insurance Payer Benefit Plan / Group Subscriber ID Type Phone A [facility] MEDICAID [place] xxxxxxxxx Medicaid [id number] 1 Advance Directives For more information, please contact:[facility] [employer] [facility] [id number] [place], [place] [phone] Code Status Date Activated Date Inactivated Comments Full Code 05/14/2017 10:10 PM 05/19/2017 2:55 PM This code status was determined by: Patient
--- OUTSIDE RECORDS SUMMARY | 2019-12-15 21:18 | XMS REPORT | Continuity of Care Document ---
:1990 Author Organization [facility] t Address [address] [place] [address] Care Team Providers Name Role Phone Asked, Pcp Primary Care Physician Unavailable Adrianne Hansen Attending Clinician Rita SABA Attending Clinician Doctor Unassigned, Name Attending Clinician Unavailable Lroy MENDOZA Attending Clinician Di TAYLOR Attending Clinician Unavailable Adolfo Bailey MD Attending Clinician Alissa MENDOZA Attending Clinician Susi Diana MD Attending Clinician Aleksandar MENDOZA Attending Clinician Kia MENDOZA, L Attending Clinician BRANDO RODAS Attending Clinician Unavailable ALISSA Admitting Clinician Unavailable Juliano DEJESUS Admitting Clinician Unavailable Payers Payer Name Policy Type Policy Number Effective Date Expiration Date S sb CIGNACIGNA OPEN xxxxxxxxxxx 2019 [place] ACCESS/NETWORKxx 00:00:00 Methodis t 0-PresentHMO MEDICAIDMEDICAID xxxxxxxxx 2019 [place] 00:00:00 Methodis t 0-PresentMedicai d Problems Condition Condition Condition Status Onset Resolution Last Treating Co mments Source Name Details Category Date Date Treatment Clinician Date Seizure Seizure Disease Active [place] 11-11 [facility]: st 00 Hypokalemi Hypokalemi Disease Active 2016-[address] [facility] [place] Acute Acute Disease Active 2016-[address] [facility] encephalop encephalop 1-30 [place] kes - athy athy 00:00: Medical 00 [place] Seizure Seizure Disease Active 2016-[address] [facility] [address] disorder disorder 1-30 [facility] 00 [place] Leukocytos Leukocytos Disease Active 2016-[address] [facility] is 1-30 [facility] 00 Center Less than Less than Disease Active 2016-[address] [facility] 8 weeks 8 weeks 1-30 [facility] - gestation gestation 00:00: [facility] Allergies, Adverse Reactions, Alerts Allergy Allergy Status Severity Reaction(s) Onset Inactive Treating Comm ents Source Name Type Date Date Clinician No Known DA Active [facility] No Known DA Active U 2016-06 [facility] Allergie -24 [facility] [facility] 00:[facility]: [facility] [place] Social History Social Habit Start Date Stop Date Quantity Comments Source Sex Assigned At [facility] ethodist Alcohol intake 2019-11-12 2019-11-12 Ex-drinker [facility] thodist 00:00:00 00:00:00 (finding) Smoking Status Start Date Stop Date Source Never smoker [place] Methodis t Medications Ordered Filled Start Stop [...] Take 1 Nunez complex-vit 11-14 tablet by Mo thodi carter 00:00: 23:[address] C-folic [...] blood 2019-11-15 12:02:13 114 mm[Hg] Luz n Pentecostal pressure Diastolic blood 2019-11-15 12:02:13 74 mm[Hg] Julee on Pentecostal pressure Heart rate 2019-11-15 12:02:13 93 /min Enrique Piedra Body temperature 2019-11-15 12:02:13 36.78 Melody Hous ton Pentecostal Respiratory rate 2019-11-15 12:02:13 18 /min Sonja ton Pentecostal Oxygen saturation in 2019-11-15 12:02:13 97 /min [...] METABOLIC PANEL 2019-11-13 04:00:00 Caesar Maxwell on [facility] TOTAL IRON BINDING 2019-11-13 04:00:00 Caesar Maxwell [facility] CAPACITY FERRITIN LEVEL 2019-11-13 04:00:00 Caesar Maxwell Met hodist ESTIMATED GFR 2019-11-13 04:00:00 Caesar Maxwell Met hodist MANUAL DIFFERENTIAL 2019-11-13 04:00:00 Caesar Maxwell MRI BRAIN W WO CONTRAST 2019-11-13 02:16:00 Bina Bonds CONSULT TO OSTOMY CARE 2019-11-12 23:40:27 Caesar Maxwell [facility]ec[facility]al NURSE ECG 12-LEAD 2019-11-12 21:10:47 Bina Bonds MARCELINO 2019-11-12 19:40:00 Bina Bonds FOLATE LEVEL 2019-11-12 19:40:00 Bina Bonds VITAMIN B12 LEVEL 2019-11-12 19:40:00 Bina Bonds [facility]al C-REACTIVE PROTEIN 2019-11-12 19:40:00 Bina Bonds on [facility]ec[facility]al HOMOCYSTINE, PLASMA 2019-11-12 19:40:00 Bina Bonds [facility]al CORTISOL LEVEL, RANDOM 2019-11-12 19:40:00 Bina Bondsston [facility]ec[facility]al SEDIMENTATION RATE 2019-11-12 19:40:00 Bina Bonds on [facility]ec[facility]al RHEUMATOID FACTOR 2019-11-12 19:40:00 Bina Bonds [facility] THYROID STIMULATING 2019-11-12 19:40:00 Bina Bonds [facility] HORMONE T4, FREE 2019-11-12 19:40:00 Bina Bonds SYPHILIS TOTAL ANTIBODY 2019-11-12 19:40:00 Bina Bonds HIV AG/AB COMBINATION 2019-11-12 19:40:00 Bina Bonds [facility] VITAMIN D 25 HYDROXY 2019-11-12 19:40:00 Bina Bonds stoalberta Pentecostal LEVEL CREATINE KINASE, TOTAL 2019-11-12 19:40:00 Bailey, Shari Ladd on Pentecostal (CPK) Adolfo PROLACTIN LEVEL 2019-11-12 19:40:00 Shari Bailey Meth odist Adolfo MARCELINO TITER 2019-11-12 19:40:00 Shari Bailey Meth odist Adolfo CT CERVICAL SPINE WO 2019-11-12 18:12:54 Shari Bailey [facility]ec[facility]al CONTRAST Adolfo CT MAXILLOFACIAL WO 2019-11-12 18:09:40 Shari Bailey [facility]ec[facility] CONTRAST Adolfo CT HEAD WO CONTRAST 2019-11-12 18:09:19 BaileyShari chase Pentecostal Adolfo XR CHEST 1 VW PORTABLE 2019-11-12 17:35:36 Leo Shari Ladd on Pentecostal Adolfo HC COMPLETE BLD COUNT 2019-11-12 17:04:00 Shari Bailey [facility]ec[facility]al W/AUTO DIFF [facility] COMPREHENSIVE METABOLIC 2019-11-12 17:04:00 Shari Bailey [facility]ec[facility]al PANEL [facility] ALCOHOL LEVEL, BLOOD 2019-11-12 17:04:00 Leo Sharimayda Nunez Pentecostal Adolfo KEPPRA (LEVETIRACETAM) 2019-11-12 17:04:00 Shari Bailey on Pentecostal LEVEL [facility] ESTIMATED GFR 2019-11-12 17:04:00 BaileyShari chase Meth odist Adolfo URINE CULTURE 2019-11-12 14:44:00 Keanu Flores Meth odist URINALYSIS SCREEN AND 2019-11-12 14:44:00 Keanu Flores [facility] MICROSCOPY, WITH REFLEX TO CULTURE HCG QUALITATIVE, URINE 2019-11-12 14:44:00 Keanu Flores [facility] SCREEN URINE DRUGS OF ABUSE 2019-11-12 14:44:00 Keanu Floresist SCREEN Plan of Care Planned Activity Planned Date Details Comments Source Future Scheduled 2020-01-14 INFLUENZA VACCINE Luz pinzon [facility]ec[facility]al Test 00:00:00 [code = INFLUENZA VACCINE] Future Scheduled 2010 Screening for [facility] thodist Test 00:00:00 malignant neoplasm of cervix (procedure) [code = 456583100] Encounters Start End Encounter Admission Attending Care Care Encounter Source Date/Time Date/Time Type Type Clinicians Facility Department ID 2019-11-29 2019-11-29 Emergency Rohit [facility] [id number] 13:51:42 18:42:00 Brittany Leach [id number] [place] 4.2.7.2.686 [place] [id number] 2019-11-29 2019-11-29 Telephone Rita [facility] [id number] 00:00:00 00:00:00 Cecilia Leach [id number] [place] 4.2.7.2.686 [id number] [facility] 2019-11-29 2019-11-29 Orders Doctor ELVIA [id number] 00:00:00 00:00:00 Only Unassigned, MICHAELLE [id number] [place] [facility] 4.2.7.2.686 [id number] 2019-11-12 2019-11-15 Inpatient [facility] [id number] [place] 00:00:00 00:00:[address] 2019-10-24 2019-10-24 [facility] [id number] 14:33:37 23:59:00 Encounter Sj OCHOA [id number] MEDICAL 4.2.7.2.686 [place] [id number] [id number] 2019-10-11 2019-10-11 [facility] [id number] 00:00:00 00:00:00 Cecilia Leach 350.1.13.10 [place] 4.2.7.2.686 [facility] [id number] [facility] 2019-10-06 2019-10-06 Telemedici Rita [facility] 1.2.840.114 [id number] 08:13:12 15:30:52 ne Visit Cecilia Leach [id number] [place] 4.2.7.2.686 Professio [id number] [address] 2019-08-12 2019-08-12 [facility] [id number] 00:00:00 00:00:00 Management Daina Leach 350.1.13.10 [place] 4.2.7.2.686 Professio [id number] [address] 2019-08-12 2019-08-12 Telephone Ad, [facility] [id number] 00:00:00 00:00:00 Daina Leach 350.1.13.10 [place] 4.2.7.2.686 Professio [id number] [address] 2019-08-10 2019-08-10 Office [facility] [id number] 14:12:35 15:35:54 Visit Daina Leach 350.1.13.10 [place] 4.2.7.2.686 Professio [id number] [address] Results Test Description Test Test Results Result Source Time Comments Comments Continuous EEG 2019-11- CONTINUOUS VIDEO-EEG [facility] [address] 17:34:53 [...] Comme nts MARCELINO titer (test code = 71881-2) 1:160 Not-Detected A MARCELINO pattern (test code = 12987-0) Homogeneous Not-Detected A Lab Interpretation (test code = 68712-4) [facility]normal [facility]-59-28 13:08:33 Test Item Value Reference Range Interpretation Comments MARCELINO screen (test code Positive Negative A Test p erformed using = 550) NOVA Lite DAPI MARCELINO kit (Indirect Immunofluoresce nce Assay) for Anti -Nuclear Antibody on VoxPop ClothingA-Lyser 16 0 Analyzer. Lab Interpretation Abnormal (test code = 10846-9) [place] [facility] with platelet and srkkyknmadui6390-53-84 08:57:11 Test Item Value Reference Range Interpretation Comments WBC (test code = 37548-1) 7.99 4.50- 11.00 k/uL RBC (test code = 17636-8) 4.06 m/uL 4.2-5.5 L HGB (test code = 718-7) 10.8 g/dL 12-16 L HCT (test code = 4544-3) 34.1 % 37-47 L MCV (test code = 787-2) 84.0 fL 82-100 MCH (test code = 785-6) 26.6 pg 27-34 L MCHC (test code = 786-4) 31.7 g/dL 31-37 RDW - SD (test code = 46456-4) 48.1 fL 37-55 MPV (test code = 75224-0) 10.2 fL 8.8-13.2 Platelet count (test code = 251 150- 400 k/uL 18772-8) Nucleated RBC (test code = 0.00 /100 WBC 69148-1) Neutrophils (test code = 10290-0) 51.0 % 39-69 Lymphocytes (test code = 17903-6) 34.0 % 25-45 Monocytes (test code = 97074-0) 13.0 % 0-10 H Eosinophils (test code = 77472-4) 2.0 % 0-5 Basophils (test code = 71750-1) 0.0 % 0-1 Lab Interpretation (test code = Abnormal 93265-4) Enrique MethodistManual qtpqarwljezw5584-68-75 08:57:11 Test Item Value Reference Range Interpretation Comments Manual differential (test code = PERFORMED 39396-4) Neutrophils (test code = 51.0 % 39-69 18301-2) Lymphocytes (test code = 34.0 % 25-45 46970-4) Monocytes (test code = 50717-2) 13.0 % 0-10 H Eosinophils (test code = 2.0 % 0-5 27266-7) Basophils (test code = 01894-1) 0.0 % 0-1 Metamyelocytes (test code = 0 % 740-1) Promyelocytes (test code = 0 % 783-1) Platelet slide review (test code Sana adequate = 78967-6) Anisocytosis (test code = 702-1) Moderate Ovalocytes (test code = 774-0) Moderate Enlarged platelets (test code = Moderate A 13548-8) Lab Interpretation (test code = Abnormal 05919-9) Enrique MethodistContinuous EEG ldmppqjpoc2337-19-58 07:42:19CONTINUOUS VIDEO- EEG MONITORING REPORT Patient Name: [...] seizures occurred. ICD-10 Code: R56.9[facility] MethodistBasic metabolic utsvy0332-86-00 06:44:31 Test Item Value Reference Range Interpretation Comments Sodium (test code = 2951-2) 135 135- 148 mEq/L Potassium (test code = 2823-3) 3.4 3.5- 5.0 mEq/L L Chloride (test code = 2075-0) 103 98- 112 mEq/L CO2 (test code = 2027-9) 21 24- 31 mEq/L L Anion gap (test code = 96670-5) 11@ANIO 7- 15 mEq/L BUN (test code = 3094-0) 9 mg/dL 6-20 Creatinine (test code = 2160-0) 0.48 mg/dL 0.5-0.9 L Glucose (test code = 2345-7) 95 mg/dL 65-99 Calcium (test code = 55529-4) 9.2 mg/dL 8.3-10.2 Lab Interpretation (test code = Abnormal 22381-8) Nunez MethodistEstimated [id number] 06:44:31 Test Item Value Reference Range Interpretation Comments Estimated GFR (test >=90 mL/min/1.73 m2 Catjohn wiggins Units code = 5488) InterpretationG 1 >=90 Normal or highG2 60-89 Mildly dmhnyoaqiX5b 45-59 Mildly to mode rately sxdzzlpduQ1b 30-44 Moderately to severely decreasedG4 15-29 Severely decre asedG5 <15 Kidn ey failureThe eGFR was calculated alyssa fortune the Chronic Kidney Disease Epidemiology Co llaboration (CKD-EPI) equat ion. Interpretation is based on recommendations of the National Kidney Foundation-Kidn ey Disease Outcomes Qualit y Initiative (NKF-KDOQI) pub lished in 2014. Enrique CruzistKeppra (Levetiracetam) feuar0025-48-69 05:29:41 Test Item Value Reference Interpretation Comments Range Levetiracetam 30 ug/mL 12-46 INTERPRETIVE I NFORMATION: (test code = Danilora 4478-4) (Levetiracetam) Therapeutic Range: 12-46 u g/mL Toxic: Not wel l EstablishedPhar macokinetics of levetiracetam a re affected by renal function. Adverse effects may include andi nolence, weakness, heada justus and vomiting.This l evetiracetam (Keppra) immuno assay uses the [employer] reagents, which has known cross -reactivity [...] to determ ine drug concentrations. Performed by [facility],[address] [facility],[place] [address] 08 wop .inmobly, Josué Barreto MD, Lab. Director Enrique CruzistVitamin D 25 hydroxy ebcxh1933-43-45 15:46:04 Test Item Value Reference Range Interpretation [...] hods. Lab Interpretation Abnormal (test code = 92226-0) Enrique PiedraContinuous EEG qzaknwubyl7843-60-81 07:19:24 CONTINUOUS VIDEO-EEG MONITORING REPORT Patient Name: [...] regions independently. No seizures occurred. ICD-10 Code: R56.9[facility] EEG (routine) - Baseline [id number] 06:43:32EEG RECORDING AWAKE & ASLEEP - Baseline [...] the above findings. Toya Rojo MethodistECG 12 agvf7994-37-60 20:07:26 Test Item Value Reference Range Interpretation Comments Ventricular rate (test 81 code = 253) Atrial rate (test code = 81 255) MA interval (test code = 164 266) QRSD [...] Ibarra MD (1082) on 11/13/2019 8:07:25 PM [place] MethodistSyphilis total hwolhpoq2558-01-95 10:13:08 Test Item Value Reference Range Interpretation Comments Syphilis total Non-reactive Non-reactive No serologica l antibody (test code evidence of syphilis = 6194) infection. [place] MethodistFerritin idtui7461-41-00 07:54:01 Test Item Value Reference Range Interpretation Comments Ferritin level (test code = 2276-4) <13 13-150 A Lab Interpretation (test code = Abnormal 77597-2) [place] MethodistTotal iron binding macnyeiw9891-02-92 07:50:12 Test Item Value Reference Range Interpretation Comments Iron level (test code = 2498-4) 20 ug/dL 37-145 L Iron binding capacity (test code = 335 ug/dL 587-061 1334-7) % Saturation (test code = 2502-3) 6.0 % 15-38 L Lab Interpretation (test code = Abnormal 92445-6) Nunez PentecostalMRI Brain W Wo Figqhwvp7868-07-69 06:11:14Hm Interface, Radiology Results 11/13/2019 6:14 AM [...] hypoperfusion or cuco-ictal hyperperfusion to localize seizure focus.[facility]-[id number] MethodistSedimentation rate 2019-11-12 22:03:32 Test Item Value Reference Range Interpretation Comments Sedimentation rate (test code = 9 0- 20 mm/hr 05407-6) [place] [facility]/Ab avtnkxsumhi0892-32-17 21:46:22 Test Item Value Reference Range Interpretation Comments HIV Ag/Ab combination (test code Non-reactive Non-reactive = 5299) [facility] yqcam5051-97-94 20:56:33 Test Item Value Reference Range Interpretation Comments Vitamin B12 (test 466 pg/mL 211-946 Significan t overlap code = 2132-9) exists betwee n normal and deficiency states.However, most patients with deficiencies wi ll have Serum B12 <2 00 pg/mL. [place] MethodistFolate lphbr2145-66-44 20:56:33 Test Item Value Reference Range Interpretation Comments Folate (test code = 2284-8) 9.3 ng/mL 4.8-24.2 Nunez MethodistT4, nsmt1620-38-46 20:48:50 Test Item Value Reference Range Interpretation Comments T4, free (test code = 3024-7) 1.2 ng/dL 0.9-1.7 Nunez MethodistCortisol level, rovsmn8574-40-21 20:48:37 Test Item Value Reference Range Interpretation Comments Cortisol, random 2 ug/dL Reference R anges are not (test code = 2143-6) establi shed for non-timed Cortisol levels .Reference Range for Timed Cortisol: 6 - 10 AM 6 - 18 ug/dl 4 - 8 PM 3 - 11 ug/ dl [place] MethodistThyroid stimulating tlfqwjp9615-34-23 20:48:37 Test Item Value Reference Range Interpretation Comments TSH (test code = 3016-3) 2.21 0.27- 4.20 uIU/mL [place] MethodistProlactin ajmok4509-35-55 20:48:36 Test Item Value Reference Range Interpretation Comments Prolactin (test code = 2842-3) 22 ng/mL 5-23 [place] MethodistCreatine kinase, total (CPK)2019-11-12 20:42:35 Test Item Value Reference Range Interpretation Comments Creatine kinase (test code = 2157-6) 56 U/L 26-192 Nunez MethodistC-reactive bnttady1742-58-18 20:42:35 Test Item Value Reference Range Interpretation Comments CRP (test code = 1987-) <0.30 0-0.5 Nunez MethodistRheumatoid vapfjq4215-04-03 20:36:01 Test Item Value Reference Range Interpretation Comments Rheumatoid factor (test code = 07340-1) <10 0- 13 IU/mL [place] MethodistHomocystine, wluoex2145-89-17 20:36:01 Test Item Value Reference Range Interpretation Comments Homocysteine (test 10.3 umol/L 0-15 The risk for coronary code = 98957-3) vascular dis ease increases progressively w ith homocysteine concentration. A 3.4 times greater r isk is associated wit h a homocysteine concentration o f greater than 15.8 umol/L as carlin red to a concentration below 14.1 umol/L. [place] MethodistCT Cervical Spine Wo Vfmlcuwl1725-94-85 18:17:20Hm Interface, Radiology Results 11/12/2019 6:20 PM [...] fracture or subluxation identified in the cervical spine.[facility]-[id number] MethodistCT Maxillofacial Wo Vlshpxkh3113-09-15 18:15:46Hm Interface, Radiology Results 11/12/2019 6:18 PM [...] soft tissues are unremarkable.The paranasal sinuses are clear.[facility]-[id number] Pentecostal CT Head Wo Qcothdtu1017-49-66 18:11:26Hm Interface, Radiology Results 11/12/2019 6:14 PM [...] air cells are clear.IMPRESSION:No acute intracranial abnormality identified.[facility]-[id number] MethodistComprehensive metabolic hnktl4092-13-16 18:10:58 Test Item Value Reference Range Interpretation Comments Sodium (test code = 142 135- 148 mEq/L 2951-2) Potassium (test code = 3.7 3.5- 5.0 mEq/L 2823-3) Chloride (test code = 106 98- 112 mEq/L 2075-0) CO2 (test code = 2027-9) 22 24- 31 mEq/L L Anion gap (test code = 14@ANIO 7- 15 mEq/L 92460-2) BUN (test code = 3094-0) 4 mg/dL 6-20 L Creatinine (test code = 0.60 mg/dL 0.5-0.9 2160-0) Glucose (test code = 98 mg/dL 65-99 2345-7) Calcium (test code = 9.4 mg/dL 8.3-10.2 05138-6) Protein (test code = 7.2 g/dL 6.3-8.3 -[place] n 2885-2) 4.6-7.0 g/dL1 week 4.4-7 .6 g/dL7 months-1y ear 5.1-7 .3 g/dL1-2 years 5.6-7 .5 g/dL>3 years 6.0-8 .0 g/rP25-767 6.3-8 .3 g/dL Albumin (test code = 3.7 g/dL 3.5-5 1751-7) A/G ratio (test code = 1.1 0.7-3.8 1759-0) Alkaline phosphatase 79 U/L 35-104 (test code = 6768-6) AST (test code = 1920-8) 29 U/L 10-35 ALT (test code = 1742-6) 39 U/L 5-50 Total bilirubin (test <0.2 0-1.2 code = 1975-2) Lab Interpretation (test Abnormal code = 79068-5) Nunez MethodistAlcohol level, kjpto6147-11-21 18:06:03 Test Item Value Reference Range Interpretation Comments Alcohol percent None Detected % Normal (test code = None Detec tedLegal 5643-2) Intoxication in [place] 80 mg/dL (0.08% ) - Whole BloodToxi c Concentration 200 mg/dL (0.2%)Potential ly Fatal 350 - 500 mg/dL (0.35 - 0 .5%) [place] MethodistXR Chest 1 Vw Ayjxeyfk8813-19-22 17:37:03Hm Interface, Radiology Results 11/12/2019 5:40 PM CDTEXAMINATION: XR CHEST 1 VW PORTABLECLINICAL HISTORY: SOBXR CHEST 1 VW PORTABLE images are submittedCOMPARISON: NONEFINDINGS:The cardiac silhouette is normal in size. The pulmonary vasculature is within normal limits. The lung zones have no focal area of consolidation. There is no pleural effusion or pneumothorax.IMPRESSION:1. Thereis no acute cardiopulmonary disease.[id number] Pentecostal Urinalysis screen and microscopy, with reflex to nqmiqlz4532-55-98 16:10:59 Test Item Value Reference Range Interpretation Comments Specimen site (test code = Clean catch 9803510) Color, UA (test code = 5778-6) Straw Appearance, UA (test code = Hazy 5767-9) Specific gravity, UA (test code = 1.020 1.001-1.035 5811-5) pH, UA (test code = 5803-2) 8.0 5.0-8.5 Protein, UA (test code = 77091-3) Negative Negative Glucose, UA (test code = 65717-4) Negative Negative Ketones, UA (test code = 2514-8) Negative Negative Bilirubin, UA (test code = Negative Negative 5770-3) Blood, UA (test code = 5794-3) Negative Negative Nitrite, UA (test code = 5802-4) Negative Negative Urobilinogen, UA (test code = <2.0 <2.0 41737-1) Leukocyte esterase, UA (test code Negative Negative = 5799-2) Epithelial cells, UA (test code = 6 /HPF 5787-7) WBC, UA (test code = 5821-4) <1 0- 4 /HPF RBC, UA (test code = 65382-6) None seen 0- 5 /HPF Bacteria, UA (test code = Few None seen 58627-5) Yeast, UA (test code = 23371-4) None seen Yeast with pseudohyphae, UA (test None seen code = 67950-4) Enrique Bowman drugs of abuse yzhqsc0356-65-89 15:33:59 Test Item Value Reference Interpretation Comments Range Amphetamine screen, Negative urine (test code = 3349-8) Barbiturate screen, Negative urine (test code = 3377-9) Benzodiazepine Negative screen, urine (test code = 3390-2) Cocaine screen, Negative urine (test code = 3397-7) Methadone Negative metabolite (EDDP), urine (test code = 13811-7) Opiates screen, Negative urine (test code = 3879-4) Oxycodone screen, Negative urine (test code = 79035-9) Phencyclidine Negative screen, urine (test code = 3936-2) Tricyclic screen, Negative urine (test code = 51320-9) Cannabinoid screen, Negative Drug scr een minimum [...] efinitive testing is requ ired. Enrique Bowman anykpwd0910-26-41 15:28:27 Test Item Value Reference Range Interpretation Comments Urine culture (test SEE COMMENT Bacteriu landry screen code = 7434622) negative. [facility] [place] iqrrdv2659-38-57 15:26:18 Test Item Value Reference Range Interpretation Comments hCG qualitative, Negative Sensitivity of HCG test: urine (test code = 25 mIU/mL 6-3) Nunez MethodistRPR Vzqlkhzgffg2564-12-14 16:47:08 Test Item Value Reference Range Interpretation [...] = 06-14-2020 N Expiration Dt) Thyroid Stimulating Mxnujda6406-07-97 06:31:44 Test Item Value Reference Range Interpretation Comments TSH (test code = TSH) 3.830 mIU/mL 0.270-4.200 Lipid Exbgi1557-35-80 06:24:40 Test Item Value Reference Range Interpretation Comments Cholesterol Total 152 mg/dL 0-200 RISK OF HE ART (test code = DISEASEPublishe d by Cholesterol Total) [place] [employer] Marcelino lyte Optimal Borderl ine [...] LDL/HDL Ratio=L DL Calc/HDL Chol Urine Drug Qfeixf0874-28-97 21:53:06 Test Item Value Reference Range Interpretation [...] if desired . Urinalysis with Culture, if oqmgrgtan8604-02-50 21:40:53 Test Item Value Reference Range Interpretation [...] Indicated Not Indicated Micro Ind?) Comprehensive Metabolic Issji2041-37-07 21:34:15 Test Item Value Reference Range Interpretation [...] = A/G 1.6 ratio N Ratio) Alcohol Iuelk6056-93-41 21:34:15 Test Item Value Reference Range Interpretation Comments Ethanol Level (test <0.00 g/dL 0.00-0.01 Intoxica vandana 0.080 g/dL code = Ethanol or more Level) Ethanol Inst (test <0 N code = Ethanol Inst) Comprehensive Metabolic Vouom6367-45-66 21:34:15 Test Item Value Reference Range Interpretation [...] National Kidney Foundation, [email or web address] h.gov Comprehensive Metabolic Oktxs4964-00-95 21:34:15 Test Item Value Reference Range Interpretation [...] Foundation, [email or web address].ni h.gov Complete Blood Count with Cgysjacpbsfa1036-89-69 21:15:24 Test Item Value Reference Range Interpretation [...] code = IPF) 0 % N Automated Dddmqlkxetpa3609-14-22 21:15:24 Test Item Value Reference Range Interpretation Comments Neutro Auto (test code = Neutro 54.3 % 36.0-70.0 Auto) Lymph Auto (test code = Lymph Auto) 32.3 % 12.0-44.0 Yell Auto (test code = Yell Auto) 11.1 % 0.0-11.0 H Eos, Auto (test code = Eos, Auto) 1.3 % 0.0-7.0 Basophil Auto (test code = Basophil 0.7 % 0.0-2.0 Auto) Neutro Absolute (test code = Neutro 6.2 x10 1.6-7.4 Absolute) Lymph Absolute (test code = Lymph 3.71 x10 .50-4.60 Absolute) Yell Absolute (test code = Yell 1.28 x10 .00-1.20 H Absolute) Eos Absolute (test code = Eos 0.15 x10 0.00-0.74 Absolute) Baso Absolute (test code = Baso 0.08 x10 0.00-0.21 Absolute) IG [id number] 21:15:24 Test Item Value Reference Range Interpretation Comments IG (test code = IG) 0.3 % 0.0-5.0 IG Abs (test code = IG Abs) 0 x10 N HCG Qualitative [id number] 20:45:17 Test Item Value Reference Range Interpretation [...] 72 hours. Lot # (test code = [id number] Lot #) Expiration Dt (test 2020-12-12 N code = Expiration Dt) Neg Control (test Negative code = Neg Control) Pos Control (test Positive code = Pos Control) Internal QC (test Acceptable code = Internal QC) RPR [id number] 12:07:58 Test Item Value Reference Range Interpretation [...] = 04-14-2020 N Expiration Dt) Thyroid Stimulating [id number] 07:59:52 Test Item Value Reference Range Interpretation Comments TSH (test code = TSH) 0.717 mIU/mL 0.270-4.200 Lipid [id number] 07:52:46 Test Item Value Reference Range Interpretation Comments Cholesterol Total 141 mg/dL 0-200 RISK OF HE ART (test code = DISEASEPublishe d by Cholesterol Total) [place] [employer] Marcelino lyte Optimal Borderl ine [...] LDL/HDL Ratio=L DL Calc/HDL Chol Urine Drug [id number] 15:27:40 Test Item Value Reference Range Interpretation [...] matory test if desired . Comprehensive Metabolic [id number] 15:15:20 Test Item Value Reference Range Interpretation [...] A/G 1.9 ratio N Ratio) Comprehensive Metabolic [id number] 15:15:20 Test Item Value Reference Range Interpretation [...] the National Kidney Foundation, http://nkdep.ni h.gov Alcohol [id number] 15:15:20 Test Item Value Reference Range Interpretation Comments Ethanol Level (test <0.00 g/dL 0.00-0.01 Intoxica vandana 0.080 g/dL code = Ethanol or more Level) Ethanol Inst (test <0 N code = Ethanol Inst) Comprehensive Metabolic [id number] 15:15:20 Test Item Value Reference Range Interpretation [...] ag e have not been validated by [facility] MDRD study and should be interpreted [...] ag e have not been validated by [facility] MDRD study and should be interpreted wit h caution. eGFR R esult Interpretation: eGFR > or = 60 is in the Normal RangeeGF R < 60 may mean kid shannan diseaseeGFR < 1 5 may mean kidney failure Rang es recommended by the National Kidney Foundation, http://nkdep.ni h.gov Urinalysis [id number] 15:11:20 Test Item Value Reference Range Interpretation Comments UA WBC (test code = UA WBC) 6-10 0-5 A UA RBC (test code = UA RBC) 0-5 0-5 UA Bacteria (test code = UA Moderate A Bacteria) UA Squam Epithelial (test code = UA TNTC A Squam Epithelial) UA Mucous (test code = UA Mucous) Few A Urinalysis with Microscopic if [id number] 14:42:58 Test Item Value Reference Range Interpretation [...] GL_SJM_UA_MICRO _IN D Complete Blood Count with [id number] 14:37:26 Test Item Value Reference Range Interpretation [...] code = IPF) 0 % N Automated [id number] 14:37:26 Test Item Value Reference Range Interpretation Comments Neutro Auto (test code = Neutro 65.8 % 36.0-70.0 Auto) Lymph Auto (test code = Lymph Auto) 25.5 % 12.0-44.0 Yell Auto (test code = Yell Auto) 7.3 % 0.0-11.0 Eos, Auto (test code = Eos, Auto) 0.7 % 0.0-7.0 Basophil Auto (test code = Basophil 0.5 % 0.0-2.0 Auto) Neutro Absolute (test code = Neutro 6.0 x10 1.6-7.4 Absolute) Lymph Absolute (test code = Lymph 2.34 x10 .50-4.60 Absolute) Yell Absolute (test code = Yell .67 x10 .00-1.20 Absolute) Eos Absolute (test code = Eos 0.06 x10 0.00-0.74 Absolute) Baso Absolute (test code = Baso 0.05 x10 0.00-0.21 Absolute) IG [id number] 14:37:26 Test Item Value Reference Range Interpretation Comments IG (test code = IG) 0.2 % 0.0-5.0 IG Abs (test code = IG Abs) 0 x10 N HCG Qualitative [id number] 14:34:08 Test Item Value Reference Range Interpretation [...] 72 hours. Lot # (test code = [id number] N Lot #) Expiration Dt (test 2020-03-14 N code = Expiration Dt) Neg Control (test Negative code = Neg Control) Pos Control (test Positive code = Pos Control) Internal QC (test Acceptable code = Internal QC) DRUGS OF ABUSE SCREEN [id number] 17:11:00 Test Item Value Reference Range Interpretation [...] = [place]) concentrati on: 300 ng/mL URINALYSIS [id number] 17:08:00 Test Item Value Reference Range Interpretation [...] (test code = MOD NONE BACU) URINALYSIS [id number] 17:00:00 Test Item Value Reference Range Interpretation [...] (test code = NONE BACU) HCG SERUM [id number] 16:52:00 Test Item Value Reference Range Interpretation Comments HCG SERUM QUAL (test code = HCGQL) NEGATIVE NEGATIVE - CT HEAD/BRAIN W/O [id number] 16:51:00 FAX: Theresa Fields MD Mayo: STACEY St: REG Name: HEATHER HOPE [facility] : 1990 Age/S: 28/F [address] [facility] [place] Unit: [id number] Loc: [place], [place]: [place] [id number] Acct: [id number] Dis Date: Status: REG ER PHONE #: [phone] Exam Date: 02/23/2019 1642 FAX #: [phone] Reason: SEIZURE EXAMS: CPT CODE: [id number] CT HEAD/BRAIN W/O CONT 82773 Dictation location: U19. CT HEAD WITHOUT CONTRAST. [...] (1651) t.SDR.SP17 Orig Print D/T: S: 02/23/2019 (9384 PAGE 1 Signed ReportBASI METABOLIC [id number] 16:31:00 Test Item Value Reference Range Interpretation [...] CA) 8.8 mg/dl 8.0-10.5 N BASIC METABOLIC [id number] 16:26:00 Test Item Value Reference Range Interpretation [...] code = CA) mg/dl 8.0-10.5 CBC W/AUTO [id number] 16:15:00 Test Item Value Reference Range Interpretation [...] 3-60 N code = VLDL) RAPID PLASMA [id number] 10:31:00 Test Item Value Reference Range Interpretation Comments RAPID PLASMA REAGIN (test code = Nonreactive Nonreactive RPR) GLYCOSYLATED HEMOGLOBIN (HA1C)2018-12-07 10:05:00 Test Item Value Reference Range Interpretation Comments GLYCOSYLATED HEMOGLOBIN (HA1C) 5.8 % TOT HB 4.5-6.2 N (test code = GLYHGB) [id number] 15:31:00 Test Item Value Reference Range Interpretation Comments ACETAMINOPHEN (test < 1 MCG/ML 10-30 L Acetamin ophen is code = ACET) possibly toxic at levels of: 1. m ore than 150 MCG/ML 4 hours post kaylin stion. 2. more than 5 0 MCG/ML 12 hours post ingestion. [id number] 15:31:00 Test Item Value Reference Range Interpretation Comments SALICYLATE (test code = < 3 MG/DL 0-20 N Refe rence Range: BOSSMAN) Analgesic...... ...... ...... < 10 mg /dl Therapeutic.... ...... ...... 15-20 mg /dl Mild Toxicity....... ...... . > 30 mg/dl Severe Toxicity....... ..... > 60 mg/dl UA RFLX [id number] 14:18:00 Test Item Value Reference Range Interpretation [...] Clean Catch (test code = UASPEC) UA [id number] 14:18:00 Test Item Value Reference Range Interpretation Comments UA WBC (test code = WBCU) < 10 #/hpf <10 UA RBC (test code = RBCU) 0-2 #/hpf NONE SEEN A UA BACTERIA (test code = BACU) RARE #/hpf NONE SEEN UA SQUAMOUS CELLS (test code = 0 - 20 #/lpf <100 SQU) UA MUCUS (test code = MUCU) 1+ #/lpf NONE SEEN BASIC METABOLIC [id number] 14:16:00 Test Item Value Reference Range Interpretation [...] 9.4 MG/DL 8.7-10.5 N CA) HEPATIC FUNCTION [id number] 14:16:00 Test Item Value Reference Range Interpretation [...] 50-136 N TOTAL (test code = ALKP) [id number] 14:16:00 Test Item Value Reference Range Interpretation Comments CK (test code = CKT) 87 Units/L 26-192 N [id number] 14:16:00 Test Item Value Reference Range Interpretation Comments ALCOHOL (test code = < 3 MG/DL 0-10 N 0 - 10: Should be ALC) interpreted as NEGATIVE. 11 - 50: None to mild euphoria. 51 - 100: Mild influence on vision and dark adapta tion. > 80: Legal intoxication; D epression of PER ASSESSMENT NURSE; Increasing degr ee of poisoning. > 400: Fatalities repo rted. Results are for medical purposes only a nd not forlegal or emp loyment evaluative purp oses. BASIC METABOLIC [id number] 14:09:00 Test Item Value Reference Range Interpretation [...] 9.4 MG/DL 8.7-10.5 N CA) HEPATIC FUNCTION [id number] 14:09:00 Test Item Value Reference Range Interpretation [...] TOTAL (test Units/L 50-136 code = ALKP) [id number] 14:09:00 Test Item Value Reference Range Interpretation Comments CK (test code = CKT) Units/L 26-192 [id number] 14:09:00 Test Item Value Reference Range Interpretation Comments ALCOHOL (test code = ALC) MG/DL 0-10 LACTIC ACID [id number] 13:50:00 Test Item Value Reference Range Interpretation Comments LACTIC ACID POC 0.97 MMOL/L 0.90-1.70 N Performed by certified (test code = LACTP) capsule machine operator at [facility] [id number] 13:48:00 Test Item Value Reference Range Interpretation Comments GLUBED (test code = 88 MG/DL 65-99 N Performe d by certified GLUBED) capsule machine operator at [facility] DRUG OF ABUSE SCREEN [id number] 13:43:00 Test Item Value Reference Interpretation Comments [...] by layton rader methods (i.e., GC/MS) at [facility]. Results of scre en may not be usedin crimi nal justice, job performance or professionalcre dential review, or infa nt custody issues. Negativ e [place] Level ng/ml ------- ----- Cocaine 300 Methamp hetamine (Ecstacy) 500 Cannabinoids (THC) 50 Amphetamine 1000 Barbiturate s 200 Benzodia zepines 200 Opiat es 300 Ph encyclidine (PCP) 25 UR HCG [id number] 13:39:00 Test Item Value Reference Range Interpretation [...] using aquantitative h CG assay. UA RFLX [id number] 13:38:00 Test Item Value Reference Range Interpretation [...] Clean Catch (test code = UASPEC) UA [id number] 13:38:00 Test Item Value Reference Range Interpretation Comments UA WBC (test code = WBCU) #/hpf <10 UA RBC (test code = RBCU) #/hpf NONE SEEN UA SQUAMOUS CELLS (test code = SQU) #/lpf <100 UA RFLX [id number] 13:38:00 Test Item Value Reference Range Interpretation [...] Clean Catch (test code = UASPEC) UA [id number] 13:38:00 Test Item Value Reference Range Interpretation Comments UA WBC (test code = WBCU) #/hpf <10 UA RBC (test code = RBCU) #/hpf NONE SEEN UA SQUAMOUS CELLS (test code = SQU) #/lpf <100 CBC W/AUTO [id number] 13:26:00 Test Item Value Reference Range Interpretation [...] = BA#) 0.05 x10 3/uL 0.0-0.2 N [id number] 19:07:00 Test Item Value Reference Interpretation Comments Range LEVETIRACETAM 28.7 ug/mL 10.0-40.0 This test was developed and (test code = its performance LEVTAM) characteristics determined by [facility]. It has not been cleared orappro froylan by the Food and Drug Administration. Performed At: [facility] [id number] [facility] [place], [place] [id number] ra Larissa MENDOZA Ph:[phone] BASIC METABOLIC [id number] 04:58:00 Test Item Value Reference Range Interpretation [...] code = 8.9 MG/DL 8.7-10.5 N CA) [id number] 04:58:00 Test Item Value Reference Range Interpretation Comments MAGNESIUM (test code = MAG) 1.9 MG/DL 1.8-2.4 N CBC W/AUTO [id number] 04:08:00 Test Item Value Reference Range Interpretation [...] 0.0-0.2 N NRBC#) - MRI BRAIN W/O [id number] 13:51:00 Patient Name: HEATHER HOPE Unit No: [id number] EXAMS: CPT CODE: [id number] MRI BRAIN W/O CONTRAST 52799 Reason: sz INDICATION: Seizure COMPARISON: CT brain, [...] MD Technologist: Andre Self MRI Trscrpt Dt/ (6231)t.DW6 Orig Print D/T: S: 09/17/2018 (0617) [facility] CntNAME: YOONHEATHER NOVEMBER [address] [facility] PHYS: [place] [address] : 1990 AGE: 27 SEX: F LOC: D.D313 1 PHONE #: [phone] EXAM DATE: 09/17/2018 STATUS: ADM IN FAX #: RAD NO: DC Dt: PAGE 1 Signed [id number] 07:25:00 Test Item Value Reference Range Interpretation Comments PROLACTIN (test code = 24.6 ng/mL 4.8-23.3 H Perfo rmed At: HD PROLAC) [facility] [address] [id number] Sb Man MD Ph:[phone] UA RFLX MICROSCOPIC [id number] 19:02:00 Test Item Value Reference Range Interpretation [...] UACULT) URINE SOURCE: Clean CatchUA RFLX MICROSCOPIC [id number] 18:56:00 Test Item Value Reference Range Interpretation [...] (test code = UACULT) URINE SOURCE: Clean [id number] 15:56:00 Test Item Value Reference Range Interpretation Comments CK (test code = CKT) 34 Units/L 26-192 N BASIC METABOLIC [id number] 12:57:00 Test Item Value Reference Range Interpretation [...] code = 8.6 MG/DL 8.7-10.5 L CA) [id number] 12:57:00 Test Item Value Reference Range Interpretation Comments CK (test code = CKT) 32 Units/L 26-192 N CBC W/AUTO [id number] 12:33:00 Test Item Value Reference Range Interpretation [...] 3/uL 0.0-0.2 N NRBC#) TOTAL IRON BINDING [id number] 05:50:00 Test Item Value Reference Range Interpretation Comments SERUM IRON (test code = IRON) 17 MCG/DL 50-170 L TOTAL IRON BINDING CAPACITY (test 363 MCG/DL 280-400 N code = TIBC) IRON SATURATION (test code = 5 % 15-50 L FESAT) [id number] 05:50:00 Test Item Value Reference Range Interpretation Comments FERRITIN (test code = LULI) 11 NG/ML 3-105 N HEPATIC FUNCTION [id number] 05:32:00 Test Item Value Reference Range Interpretation [...] code = ALKP) - CT HEAD/BRAIN W/O [id number] 20:19:00 Patient Name: HEATHER HOPE Unit No: [id number] EXAMS: CPT CODE: [id number] CT HEAD/BRAIN W/O CONT 79425 Reason: seizure TECHNIQUE: Contiguous 5 mm images [...] Print D/T: S: 09/14/2018 (2021) CTDI: DLP: [facility] NAME: HEATHER HOPE [address] [facility] PHYS: NGA. - Keanu Vázquez [place] [address] : 1990 AGE: 27 SEX: F LOC: D.KIN PHONE#: [phone] EXAM DATE: 09/14/2018 STATUS: REG ER FAX #: RAD NO: DC Dt: PAGE 1 Signed Report- XR CHEST 1 [id number] 20:18:00 Patient Name: HEATHER HOPE Unit No: [id number] EXAMS: CPT CODE: [id number] XR CHEST 1 V 00822 Reason: screen for pneumonia FINDINGS: Single view ofthe chest shows normal heart size and pulmonary vasculature. The lungs are clear bilaterally. There is no focal infiltrate, pleural effusion or pneumothorax. IMPRESSION: No a cute cardiopulmonary findings at 2018 Reported and signed by: Lashell Jimenez MD CC: Keanu Vázquez MD; Cristiane Heath Technologist: Edel BURNS Trscrpt Dt/ (2017)tDAINA.DKW Orig PrintD/T: S: 09/14/2018 (2020) [facility] NAME: HEATHER HOPE [address] [facility] PHYS: NGA. - Keanu Váz[place] [address] : 1990 AGE: 27 SEX: F LOC: RichNER PHONE #: [phone] EXAM DATE: STATUS: REG ER FAX #: RAD NO: DC Dt: PAGE 1 Signed ReportHCG SERUM [id number] 20:04:00 Test Item Value Reference Range Interpretation [...] using aquantitative h CG assay. BASIC METABOLIC [id number] 19:51:00 Test Item Value Reference Range Interpretation [...] 9.3 MG/DL 8.7-10.5 N CA) CBC W/AUTO [id number] 19:46:00 Test Item Value Reference Range Interpretation [...] BA#) 0.05 x10 3/uL 0.0-0.2 N BLOOD [id number] 10:00:00 Test Item Value Reference Range Interpretation Comments CULTURE (BEAKER) (test No growth in 5 days code = 1095) HCG, QUANTITATIVE, [id number] 15:37:00 Test Item Value Reference Range Interpretation Comments GONADOTROPIN, CHORIONIC (HCG) 79271 mIU/mL 0-10 H QUANT (BEAKER) (test code = 649) Non- Females: <10 mIU/mL Females: Gestation Age Reference Range(mIU/mL) 0.2-1 Week 5-50 1-2 Weeks 50-500 2-3 Weeks 100-5,000 3-4Weeks 500-10,000 4-5 Weeks 1,000-50,000 5-6 Weeks 10,000-100,000 6-8 Weeks 15,000-200,000 2-3 Months 10,000-100,000COMPREHENSIVE METABOLIC [id number] 15:10:00 Test Item Value Reference Range Interpretation [...] PATIEN TS. CBC W/PLT COUNT & AUTO [id number] 14:53:00 Test Item Value Reference Range Interpretation [...] (test code = 2801) U/S, , FIRST [id number] 07:52:00Reason for exam:-> Reason for exam:->please include [...] 1 day. An embryonic pole is evident. [place]-rump length measures 0.63 cm, correlating with estimated [...] Garrido Verified Date/Time: 05/17/2017 07:52:37 Reading Location: [facility] C013X Ortho Consult Reading Room PREGNANCY SCREEN, [id number] 05:28:00 Test Item Value Reference Range Interpretation Comments TEST URINE (BEAKER) (test Positive code = 583) MR, BRAIN, WITHOUT [id number] 18:54:00Reason for exam:->Stroke evaluationFINAL REPORT MRI brain [...] 05/15/2017 18:54:11 Reading Location: [facility] Radiology Reading Room EEG AWAKE AND [id number] 12:08:00Reason for exam:->? nonconvulsive statusDATE OF TEST: 05/15/2017DATE OF REPORT 05/15/2017 ACC: [id number] EE Start time: 1034 Stop time: 1054 ICD-10: R56.9CPT Code: 18319LDFRWDT: 26 y/o woman with epilepsy found down [...] recordings.Marika Smith M.D.Neurophysiology FellowSwathi Harper M.D.Neurophysiology Attending [id number] 04:27:00 Test Item Value Reference Range Interpretation Comments PROCALCITONIN (BEAKER) (test code 0.17 ng/mL <0.05 H = 3036) SEPSIS RISK (ng/mL)Low: 0.05-0.50Intermediate: 0.51-2.00High: >=[id number] 03:15:00 Test Item Value Reference Range Interpretation Comments PHOSPHORUS (BEAKER) (test code = 3.1 mg/dL 2.3-4.7 604) [id number] 03:15:00 Test Item Value Reference Range Interpretation Comments MAGNESIUM (BEAKER) (test code = 1.9 mg/dL 1.6-2.6 627) BASIC METABOLIC [id number] 03:15:00 Test Item Value Reference Range Interpretation [...] code = 380) LACTIC ACID, VENOUS, WHOLE [id number] 03:09:00 Test Item Value Reference Range Interpretation Comments LACTATE BLOOD VENOUS (2) (BEAKER) 0.6 mmol/L 0.5-2.2 (test code = 2872) Effective 10/17/2015: Units/Reference Range ChangeNew: 0.5-2.2 mmol/L Previous: 5-20 mg/dLPROTHROMBIN TIME/[id number] 03:07:00 Test Item Value Reference Range Interpretation [...] = 2801) RAD, CHEST, 1 VIEW, NON [id number] 01:06:00Reason for exam:->possible infectionShould this be performed at the bedside?->YesFINAL REPORT History: Infection. Comparison: None. Findings: A single view of the chest is submitted. The cardiomediastinal contours are unremarkable. There is no focal consolidation, pneumothorax, large pleural effusion or evidence of overt pulmonary edema. There is no acute bony abnormality. Impression: No acute abnormality. Signed: Shabnam Zhu Verified Date/Time: 05/15/2017 01:06:06 Reading Location: [address] Reading Room
[2019-12-15 21:19] LABS: Blood Morphology Comment NOT SEEN (NOT SEEN); Platelet Estimate ADEQ
[2019-12-15 22:27] LABS: Urine Blood NEGATIVE (NEG); Urine Glucose NEGATIVE (NEG); Urine Protein NEGATIVE (NEG); Urine Specific Gravity 1.025 (1.005-1.030)
[2019-12-15 22:38] LABS: Barbiturates NEGATIVE (NEGATIVE); Benzodiazepines NEGATIVE (NEGATIVE); Cocaine NEGATIVE (NEGATIVE); METHAMPHETAM NEGATIVE (NEGATIVE); Methadone NEGATIVE (NEGATIVE); Opiates NEGATIVE (NEGATIVE); Phencyclidine NEGATIVE (NEGATIVE); THC Cannibis NEGATIVE (NEGATIVE)
--- NOTE | 2019-12-15 23:51 | EDPHYS ---
Physician Documentation [facility] Name: Heather Hope Age: 29 yrs Sex: Female : 1990 Arrival Date: 12/15/2019 Time: 17:37 Bed 5 Private MD: ED Physician Rambo Beck HPI: 12/15 06:25 This 29 yrs old Female presents to ER via EMS with complaints of Probable tw4 Seizure. 06:25 The patient presents after having a single isolated seizure, that lasted an unknown tw4 period of time. Character of seizure(s): Loss of consciousness: it is not known if the patient experienced loss of consciousness, Motor activity: generalized, Incontinence: Apnea: it is not know whether or not the patient experienced apnea, Circulation: it is unknown whether or not the patient experienced a disturbance in pulse. Seizure onset: just prior to arrival. Context: the seizure(s) was witnessed, by a bystander. Seizure Hx: Original onset: longstanding, Seizure medications: Keppra. Associated injury: Head/face: lower lip, contusion. The patient has not experienced similar symptoms in the past. Historical: - Allergies: 12/14 17:41 No Known Allergies; bp - Home Meds: 17:41 Keppra 750 mg Oral tab 2 tabs 2 times per day [Active]; bp - PMHx: 17:41 Anemia; Seizures; bp - Immunization history:: Adult Immunizations unknown. - Social history:: Smoking status: Patient denies any tobacco usage or history of. ROS: 12/15 06:25 Constitutional: Negative for fever, chills, and weight loss, Eyes: Negative for injury, tw4 pain, redness, and discharge, Cardiovascular: Negative for chest pain, palpitations, and edema, Respiratory: Negative for shortness of breath, cough, wheezing, and pleuritic chest pain, Abdomen/GI: Negative for abdominal pain, nausea, vomiting, diarrhea, and constipation, Back: Negative for injury and pain, MS/Extremity: Negative for injury and deformity, Skin: Negative for injury, rash, and discoloration. Neuro: Positive for seizure activity, Negative for altered mental status, dizziness, headache, tinnitus, tremor. Exam: 06:25 Constitutional: This is a well developed, well nourished patient who is awake, alert, tw4 and in no acute distress. Chest/axilla: Normal chest wall appearance and motion. Nontender with no deformity. No lesions are appreciated. Cardiovascular: Regular rate and rhythm with a normal S1 and S2. No gallops, murmurs, or rubs. Normal PMI, no JVD. No pulse deficits. Respiratory: Lungs have equal breath sounds bilaterally, clear to auscultation and percussion. No rales, rhonchi or wheezes noted. No increased work of breathing, no retractions or nasal flaring. 06:25 Abdomen/GI: Soft, non-tender, with normal bowel sounds. No distension or tympany. No guarding or rebound. No evidence of tenderness throughout. Skin: Warm, dry with normal turgor. Normal color with no rashes, no lesions, and no evidence of cellulitis. MS/ Extremity: Pulses equal, no cyanosis. Neurovascular intact. Full, normal range of motion. Neuro: Awake and alert, GCS 15, oriented to person, place, time, and situation. Cranial nerves II-XII grossly intact. Motor strength 5/5 in all extremities. Sensory grossly intact. Cerebellar exam normal. Normal gait. 06:25 Head/face: Noted is contusion, of the lower lip. Vital Signs: /02 17:38 BP 112 / 84; Pulse 106; Resp 18; Temp 98.9; Pulse Ox 96% on R/A; bp 18:43 BP 110 / 76; Pulse 92; Resp 16; Pulse Ox 98% ; bp 19:30 BP 115 / 80; Pulse 94; Resp 18; Pulse Ox 99% on R/A; rv 20:00 BP 114 / 72; Pulse 87; Resp 16; Pulse Ox 98% on R/A; rv 20:30 BP 118 / 70; Pulse 88; Resp 16; Pulse Ox 98% on R/A; rv 21:00 BP 122 / 93; Pulse 86; Resp 17; Pulse Ox 98% on R/A; rv 22:00 BP 119 / 91; Pulse 87; Resp 18; Pulse Ox 98% on R/A; rv 22:30 BP 120 / 85; Pulse 92; Resp 16; Temp 98.5(O); Pulse Ox 99% ; rv [place] Coma Score: 17:41 Eye Response: spontaneous(4). Verbal Response: none(1). Motor Response: localizes bp pain(5). Total: 10. 20:00 Eye Response: spontaneous(4). Verbal Response: oriented(5). Motor Response: obeys rv commands(6). Total: 15. 21:00 Eye Response: spontaneous(4). Verbal Response: oriented(5). Motor Response: obeys rv commands(6). Total: 15. 22:00 Eye Response: spontaneous(4). Verbal Response: oriented(5). Motor Response: obeys rv commands(6). Total: 15. 17:41 PT REFUSES TO SPEAK bp MDM: 23:50 Patient medically screened. 12/15 06:25 Data reviewed: vital signs, nurses notes. Data interpreted: Pulse oximetry: tw4 Interpretation: normal. Counseling: I had a detailed discussion with the patient and/or guardian regarding: the historical points, exam findings, and any diagnostic results supporting the discharge/admit diagnosis. Special discussion: I discussed with the patient/guardian in detail that at this point there is no indication for admission to the hospital. It is understood, however, that if the symptoms persist or worsen the patient needs to return immediately for re-evaluation. 12/14 18:32 Order name: CBC with Diff; Complete Time: 22:10 kdr 12/14 23:56 Interpretation: Normal except: WBC 12.4; RBC 4.67; HCT 40.5; RDW 16.7; MANUEL% 87.7; LYM% tw4 6.5; PLT 247. 12/14 18:32 Order name: Chem 7; Complete Time: 22:10 kdr 12/14 22:10 Interpretation: Normal except: GLUC 109. tw4 12/14 18:32 Order name: UDS; Complete Time: 23:52 kdr 12/14 23:52 Interpretation: Within normal limits. tw12/14 18:32 Order name: ETOH Level; Complete Time: 22:10 kdr 12/14 22:10 Interpretation: Within normal limits: ETOH < 10. 12/14 20:19 Order name: Manual Differential; Complete Time: 22:10 EDMS 12/14 22:10 Interpretation: Normal except: SEGS 83; BANDS [F] 2; LYM 8. tw4 12/14 22:23 Order name: Urine --Ancillary (enter results); Complete Time: 23:56 tt3 12/14 23:56 Interpretation: Within normal limits: URINE PREG NEG. tw4 12/14 22:23 Order name: Urine Dipstick--Ancillary (enter results); Complete Time: 23:52 tt3 12/14 23:52 Interpretation: Normal except: UKET 2+. tw4 Administered Medications: No medications were administered Disposition: 12/15/19 23:50 Discharged to Home. Impression: Epilepsy and recurrent seizures, Contusion of unspecified part of head. - Condition is Stable. - Discharge Instructions: Contusion, Seizure, Adult, Head Injury, Adult, [id number]. - Prescriptions for Ibuprofen 800 mg Oral Tablet - take 1 tablet by ORAL route every 8 hours As needed take with food; 30 tablet. Keppra 500 mg Oral Tablet - take 1 tablet by ORAL route every 12 hours; 20 tablet. - Medication Reconciliation Form, Thank You Letter, Antibiotic Education, Prescription Opioid Use form. - Follow up: Private Physician; When: Upon discharge from the Emergency Department; Reason: Recheck today's complaints, Continuance of care, Re-evaluation by your physician. - Problem is an ongoing problem. - Symptoms have improved. Signatures: Dispatcher [employer] EDTN Johnny Kennedy RN RN Rambo Beck MD MD tw4 Aniceto See RN RN rv Corrections: (The following items were deleted from the chart) 12/14 23:51 23:50 12/15/2019 23:50 Discharged to Home. Impression: Epilepsy and recurrent seizures. tw4 Condition is Stable. Forms are Medication Reconciliation Form, Thank You Letter, Antibiotic Education, Prescription Opioid Use. Follow up: Private Physician; When: Upon discharge from the Emergency Department; Reason: Recheck today's complaints, Continuance of care, Re-evaluation by your physician. Problem is an ongoing problem. Symptoms have improved. tw4 23:56 22:10 Normal except: WBC 12.4; RBC 4.67; HCT 40.5; RDW 16.7; PLT 247; MANUEL% 87.7; LYM% tw4 6.5. tw4 12/15 00:13 12/14 23:51 12/15/2019 23:50 Discharged to Home. Impression: Epilepsy and recurrent rv seizures; Contusion of unspecified part of head. Condition is Stable. Discharge Instructions: Seizure, Adult. Prescriptions for Ibuprofen 800 mg Oral Tablet - take 1 tablet by ORAL route every 8 hours As needed take with food; 30 tablet, Keppra 500 mg Oral Tablet - take 1 tablet by ORAL route every 12 hours; 20 tablet. and Forms are Medication Reconciliation Form, Thank You Letter, Antibiotic Education, Prescription Opioid Use. Follow up: Private Physician; When: Upon discharge from the Emergency Department; Reason: Recheck today's complaints, Continuance of care, Re-evaluation by your physician. Problem is an ongoing problem. Symptoms have improved. tw4
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
[2019-12-16] MEDS ORDERED: levETIRAcetam 500 MG TAB ONE (00:18)
[2019-12-16 00:31] VITALS: BP 120/85; TEMP 98.5; O2SAT 99
== END 2019-12-16 00:13 | disposition home or self-care (01) ==
LOC: ER 17:37
DX: S00.531A Contusion of lip, initial encounter (principal)
CPT/HCPCS: 36415; 80048; 80307; 80320; 81003; 81025; 85025; 99284

== ENCOUNTER 2020-01-14 20:00 | Emergency (ER) | payer OTHER ==
--- OUTSIDE RECORDS SUMMARY | 2020-01-14 20:03 | XMS REPORT | Clinical Summary ---
:1990 Author Organization [facility] Address [address] [place] [address] Care Team Providers Name Role Phone Asked, No Pcp Primary Care Provider Unavailable Allergies No Known Allergies Medications Medication Sig Dispensed Refills Start End Date Status Date levETIRAcetam Take 750 mg by 0 11/15/19 D iscontinued (KEPPRA) 750 MG mouth 2 (two) 20 (Stop Taking at tablet times a day. Dischar ge) levETIRAcetam Take 3 tablets 180 tablet 0 12/15/19 (KEPPRA) 750 MG (2,250 mg total) 0 20 tablet by mouth 2 (two) times a day for 30 days. B complex-vitamin Take 1 tablet by 30 tablet 0 12/14 C-folic acid mouth daily for 0 20 (FOLBEE PLUS 5 30 days. MG) 5 mg tablet per tablet cloBAZam (ONFI) Take 1 tablet 30 tablet 0 12/15/19 10 mg tablet (10 mg total) by 0 20 mouth nightly for 30 days. ferrous sulfate Take 1 tablet 60 tablet 0 12/15/19 325 (65 FE) MG (325 mg total) 0 20 tablet by mouth 2 (two) times a day with meals for 30 days. docusate sodium Take 1 capsule 60 capsule 0 12/15/19 (COLACE) 100 MG (100 mg total) 0 20 capsule by mouth 2 (two) times a day as needed for constipation for up to 30 days. Active Problems Problem Noted Date Seizure 11/12/2019 Encounters Date Type Specialty Care Team Description 11/24/2019 Telephone Neurology Richard Henley MD 11/17/2019 Patient Outreach Quality Nola Sevilla RN 11/16/2019 Patient Outreach Quality Nola Sevilla RN 11/12/2019 - Hospital Encounter General Internal Shari Bailey (HCC) 11/15/2019 Medicine MD Adolfo (Primary Dx) Caesar Maxwell MD Adenwala, Yusuf Ebrahim, MD 10/31/2019 Travel 10/24/2019 Travel after 01/13/2019 Social History Tobacco Use Types Packs/Day Years [...] are i n the results section. after 01/13/2019 Results Continuous EEG monitoring (11/15/2019 9:41 AM [...] time period is included. Manual differential PERFORMED [facility] Neutrophils 51.0 39.0 - 69.0 % [facility] Lymphocytes 34.0 25.0 - 45.0 % [facility] Monocytes 13.0 (H) 0.0 - 10.0 % [facility] Eosinophils 2.0 0.0 - 5.0 % [facility] Basophils 0.0 0.0 - 1.0 % [facility] Metamyelocytes 0 % [facility] Promyelocytes 0 % [facility] Platelet slide review Sana adequate [facility] Anisocytosis Moderate [facility] Ovalocytes Moderate [facility] Enlarged platelets Moderate (A) [facility] Specimen Performing Organization Address City/State/Zipcode Phone Number [facility] DEPARTMENT OF PATHOLOGY AND [address] [place], [place] [address] [facility] [place] [id number] [place] [address] CBC with platelet and differential (11/15/2019 4:30 AM CDT)Only the most recent of3 resultswithin the time period is included. Pathologist Sig nature WBC 7.99 4.50 - 11.00 k/uL [facility] RBC 4.06 (L) 4.20 - 5.50 m/uL [facility] HGB 10.8 (L) 12.0 - 16.0 g/dL [facility] HCT 34.1 (L) 37.0 - 47.0 % [facility] MCV 84.0 82.0 - 100.[address] [facility] MCH 26.6 (L) 27.0 - 34.[address] [facility] MCHC 31.7 31.0 - 37.0 g/dL [facility] RDW - SD 48.1 37.0 - 55.[address] [facility] MPV 10.2 8.8 - 13.[address] [facility] Platelet count 251 150 - 400 k/uL [facility] Nucleated RBC 0.00 /[address] [facility] Neutrophils 51.0 39.0 - 69.0 % [facility] Lymphocytes 34.0 25.0 - 45.0 % [facility] Monocytes 13.0 (H) 0.0 - 10.0 % [facility] Eosinophils 2.0 0.0 - 5.0 % [facility] Basophils 0.0 0.0 - 1.0 % [facility] Specimen Blood Performing Organization Address City/State/Zipcode Phone Number [facility] DEPARTMENT OF PATHOLOGY AND [address] [place] [phone] [facility] [address] [address] Estimated GFR (11/15/2019 4:00 AM CDT)Only the most recent of3 resultswithin the time period is included. Estimated GFR >=90 mL/min/1.73 [facility] Comment: m2 HOSPITAL Catergory Units Interpretation [...] Specimen Performing Organization Address City/State/Zipcode Phone Number [facility] DEPARTMENT OF PATHOLOGY AND [address] [place], [place] [phone] [facility] [address] [place] [address] Basic metabolic panel (11/15/2019 4:00 AM CDT)Only the most recent of2 results within the time period is included. Pathologist Sig nature Sodium 135 135 - 148 mEq/L [facility] Potassium 3.4 (L) 3.5 - 5.0 mEq/L [facility] Chloride 103 98 - 112 mEq/L [facility] CO2 21 (L) 24 - 31 mEq/L [facility] Anion gap 11@ANIO 7 - 15 mEq/L [facility] BUN 9 6 - 20 mg/dL [facility] Creatinine 0.48 (L) 0.50 - 0.90 mg/dL [facility] Glucose 95 65 - 99 mg/dL [facility] Calcium 9.2 8.3 - 10.2 mg/dL [facility] Specimen Blood Performing Organization Address City/State/Zipcode Phone Number [facility] DEPARTMENT OF PATHOLOGY AND [address] [place], [place] [address] [facility] [address] [place] [address] Continuous EEG monitoring (11/15/2019 1:22 AM CDT) [...] binding capacity (11/13/2019 4:00 AM CDT) Pathologist Sig nature Iron level 20 (L) 37 - 145 ug/dL [facility] Iron binding capacity 335 200 - 400 ug/dL [facility] % Saturation 6.0 (L) 15.0 - 38.0 % [facility] Specimen Blood Performing Organization Address City/[facility] Cent[facility] Phone Number [facility] DEPARTMENT OF PATHOLOGY AND [address] [place], [place] [phone] Ferritin level (11/13/2019 4:00 AM CDT) Pathologist Sig nature Ferritin level <13 (A) 13 - 150 ng/mL [facility] Specimen Blood Performing Organization Address City/[facility] Centercofl Phone Number [facility] DEPARTMENT OF PATHOLOGY AND [address] [place], [place] [phone] [address] [place] [phone] MRI Brain W Wo Contrast (11/13/2019 2:16 [...] or cuco-ictal hyperperfusion to localize seizure focus. [id number] Procedure Note [facility], Radiology Results Incoming - 11/13/2019 6:14 AM CDT EXAMINATION: MRI [...] or cuco-ictal hyperperfusion to localize seizure focus. [id number] Performing Organization Address [facility] Centercode Phone Number [facility] [address] [place] [address] ECG 12 lead (11/12/2019 9:10 PM CDT) Pathologist [facility] nature Ventricular rate 81 [facility]USE Atrial rate 81 [facility] NH interval 164 [facility] QRSD interval 84 [facility] QT interval 386 [facility] QTC interval 448 [facility] MUSE P axis 1 52 [facility]USE QRS axis 1 4 [facility] MUSE T wave axis 13 [facility] MUSE EKG impression Normal sinus [facility] MUSE rhythm-Normal ECG-No previous ECGs available-Electronicall y Signed By Adrian Ibarra MD ([id number]) on 11/13/2019 8:07:25 PM Specimen Narrative Performed At This result has an attachment that is no t available. Performing Organization Address [facility] Phone Number [facility] MUSE [address] [place] [phone] Syphilis total antibody (11/12/2019 7:40 PM CDT) Pathologist [facility] Syphilis total Non-reactiveComment Non-reactive [facility] antibody : No serological HOSPITAL evidence of syphilis infection. Specimen Serum Performing Organization Address [facility] Phone Number [facility] DEPARTMENT OF PATHOLOGY AND [address] [place] [address] [phone] [address] HIV Ag/Ab combination (11/12/2019 7:40 PM CDT) [facility] HIV Ag/Ab combination Non-reactive Non-reactive [facility] Specimen Blood Performing Organization Address [facility] Cent[facility] Phone Number [facility] DEPARTMENT OF PATHOLOGY AND [address] [place] [address] [phone] [address] Homocystine, plasma (11/12/2019 7:40 PM CDT) Pathologist [facility] Homocysteine 10.3 0.0 - 15.0 [facility] Comment: umol/L HOSPITAL The risk for coronary vascular disease increases progr essively with homocysteine concentration. A 3.4 times greater risk is associated with a homocysteine concentration of greate r than 15.8 umol/L as compared to a concentration below 14.1 umol/L. Specimen Blood Performing Organization Address City/[facility] Phone Number [facility] DEPARTMENT OF PATHOLOGY AND [address] [place] [address] [phone] [address] MARCELINO titer (11/12/2019 7:40 PM CDT) Pathologist Sig nature MARCELINO titer 1:160 (A) Not-Detected [facility] MARCELINO pattern Homogeneous (A) Not-Detected [facility] Specimen Blood Performing Organization Address City/[facility]/Zipcode Phone Number [facility] DEPARTMENT OF PATHOLOGY AND [address] [place] [address] [phone] [address] Vitamin D 25 hydroxy level (11/12/2019 7:40 PM CDT) Vitamin D, 13.6 (L) 30.0 - 150.0 [facility] 25-hydroxy Comment: ng/mL HOSPITAL This assay [...] Blood Performing Organization Address City/State/Zipcode Phone Number [facility] DEPARTMENT OF PATHOLOGY AND [address] [place] [address] [phone] [address] Prolactin level (11/12/2019 7:40 PM CDT) Pathologist Sig nature Prolactin 22 5 - 23 ng/mL [facility] Specimen Performing Organization Address City/State/Zipcode Phone Number [facility] DEPARTMENT OF PATHOLOGY AND [address] [place] [address] [phone] [address] Sedimentation rate (11/12/2019 7:40 PM CDT) Pathologist [facility] Sedimentation rate 9 0 - 20 mm/hr [facility] Specimen Blood Performing Organization Address [facility]ofl Phone Number [facility] DEPARTMENT OF PATHOLOGY AND [address] [place] [address] [place] [address] Rheumatoid factor (11/12/2019 7:40 PM CDT) Pathologist [facility] Rheumatoid factor <10 0 - 13 IU/mL [facility] Specimen Blood Performing Organization Address [facility] Centercode Phone Number [facility] DEPARTMENT OF PATHOLOGY AND [address] [place] [address] [place] [address] C-reactive protein (11/12/2019 7:40 PM CDT) Pathologist [facility] CRP <0.30 0.00 - 0.50 mg/dL [facility] Specimen Blood Performing Organization Address [facility] Phone Number [facility] DEPARTMENT OF PATHOLOGY AND [address] [place] [address] MARCELINO (11/12/2019 7:40 PM CDT) MARCELINO screen Positive (A) Negative [facility] Comment: HOSPITAL Test performed using [employer] Virtual[employer] DAPI MARCELINO kit (Indirect Immunofluorescence Assay) for Anti-Nuclear Antibody on Wanderable[employer]-Lyser 160 Analyzer. Specimen Blood Performing Organization Address [facility] Phone Number [facility] DEPARTMENT OF PATHOLOGY AND [address] [place] [address] Thyroid stimulating hormone (11/12/2019 7:40 PM CDT) Pathologist [facility] TSH 2.21 0.27 - 4.20 uIU/mL [facility] Specimen Blood Performing Organization Address [facility]ofl Phone Number [facility] DEPARTMENT OF PATHOLOGY AND [address] [place] [phone] [place] [address] T4, free (11/12/2019 7:40 PM CDT) Pathologist [facility] T4, free 1.2 0.9 - 1.7 ng/dL [facility] Specimen Blood Performing Organization Address [facility] Phone Number [facility] DEPARTMENT OF PATHOLOGY AND [address] [place] [phone] [place] [address] Folate level (11/12/2019 7:40 PM CDT) Pathologist Sig [facility] Folate 9.3 4.8 - 24.2 ng/mL [facility] Specimen Serum Performing Organization Address [facility] Phone Number [facility] DEPARTMENT OF PATHOLOGY AND [address] [place] [phone] [place] [address] Vitamin B12 level (11/12/2019 7:40 PM CDT) Pathologist [facility] Vitamin B12 466 211 - 946 [facility] Comment: pg/mL HOSPITAL Significant overlap exists between normal and deficien cy states. However, most patients with deficiencies will have Ser um B12 <200 pg/mL. Specimen Serum Performing Organization Address [facility] Phone Number [facility] DEPARTMENT OF PATHOLOGY AND [address] [place] [phone] [place] [address] Creatine kinase, total (CPK) (11/12/2019 7:40 PM CDT) Pathologist Sig [facility] Creatine kinase 56 26 - 192 U/L [facility] Specimen Performing Organization Address [facility] Phone Number [facility] DEPARTMENT OF PATHOLOGY AND [address] [place] [address] [place] [phone] Cortisol level, random (11/12/2019 7:40 PM CDT) Pathologist [facility] Cortisol, random 2 ug/dL [facility] Comment: HOSPITAL Reference Ranges are not established for non-timed Cor tisol levels. Reference Range for Timed Cortisol: 6 - 10 AM 6 - 18 ug/d l 4 - 8 PM 3 - 11 ug/ dl Specimen Blood Performing Organization Address [facility]/Zipcode Phone Number [facility] DEPARTMENT OF PATHOLOGY AND [address] [place] [address] [place] [address] [place] [address] CT Cervical Spine Wo Contrast (11/12/2019 6:12 [...] subluxation identif ied in the cervical spine. [id number] Procedure Note Interface, Radiology Results Incoming - [...] subluxation identif ied in the cervical spine. [id number] Performing Organization Address City/State/Zipcode Phone Number [facility] [address] [place] [address] CT Maxillofacial Wo Contrast (11/12/2019 6:09 PM [...] unre markable. The paranasal sinuses are clear. [id number] Procedure Note Interface, Radiology Results Incoming - [...] unre markable. The paranasal sinuses are clear. [id number] Performing Organization Address City/State/Zipcode Phone Number [facility] [address] [place] [address] CT Head Wo Contrast (11/12/2019 6:09 PM [...] IMPRESSION: No acute intracranial abnormality identi fied. [id number] Procedure Note Interface, Radiology Results Incoming - [...] IMPRESSION: No acute intracranial abnormality identi fied. [id number] Performing Organization Address [facility]ofl Phone Number [facility] [address] [place] [address] XR Chest 1 Vw Portable (11/12/2019 5:35 PM CDT) Specimen Narrative Performed At EXAMINATION: XR CHEST 1 VW PORTABLE [facility] CLINICAL HISTORY: SOB XR CHEST 1 VW PORTABLE images are subm itted COMPARISON: NONE FINDINGS: The cardiac silhouette is normal in size. The pulmonar y vasculature is within normal limits. The lung zones have no focal are a of consolidation. There is no pleural effus ion or pneumothorax. IMPRESSION: 1. There is no acute cardiopulmonary dis ease. [id number] Procedure Note Interface, Radiology Results Incoming - 11/12/2019 5:40 [...] There is no acute cardiopulmonary dis ease. [id number] Performing Organization Address [facility] Phone Number [facility] [address] [place] [address] Keppra (Levetiracetam) level (11/12/2019 5:04 PM CDT) Levetiracetam 30 12 - 46 ug/mL [facility] Comment: INTERPRETIVE INFORMATION: Keppra (Levetiracetam) Therapeutic Range: 12-46 ug/mL Toxic: Not well Established Pharmacokinetics of levetiracetam are affected by lamberto l function. Adverse effects may include somnolence, weakness, head ache and vomiting. This levetiracetam (Keppra) immunoassay uses the [employer] reagents, which has known cross-reactivity with the dr norma brownivaracetam (Briviact) and may report inaccurate resu lts. Patients transitioning from levetiracetam to brivarace goldstein or those who are using both medications should not monitor drug concentrations with the [employer] assay. These p atients should be monitored using a validated chromatographic methodology that distinguishes between drugs to determine drug con centrations. Performed by [facility], [address] [place] [address] [id number] [email or web address], Josué Barreto MD, Lab. Director Specimen Serum Performing Organization Address [facility]/Zipcode Phone Number [facility] [address] [place] [address] [facility] [address] [place] [phone] Alcohol level, blood (11/12/2019 5:04 PM CDT) Alcohol None Detected mg/dL [facility] Comment: HOSPITAL Normal None Detected Legal Intoxication in [place] 80 mg/dL (0.08%) - Whole Blood Toxic Concentration 200 mg/dL (0.2%) Potentially Fatal 350 - 500 mg/dL (0. 35 - 0.5%) Alcohol percent None Detected % [facility] Specimen Blood Performing Organization Address City/[facility]/Zipcode Phone Number [facility] DEPARTMENT OF PATHOLOGY AND [address] [place] [phone] GENOMIC MEDICINE [address] [address] Comprehensive metabolic panel (11/12/2019 5:04 PM CDT) Sodium 142 135 - 148 [facility] mEq/L [facility] Potassium 3.7 3.5 - 5.0 [facility] mEq/L [facility] Chloride 106 98 - 112 [facility] mEq/L [facility] CO2 22 (L) 24 - 31 mEq/L [facility] Anion gap 14@ANIO 7 - 15 mEq/L [facility] BUN 4 (L) 6 - 20 mg/dL [facility] Creatinine 0.60 0.50 - 0.90 [facility] mg/dL HOSPITAL Glucose 98 65 - 99 mg/dL [facility] Calcium 9.4 8.3 - 10.2 [facility] mg/dL [facility] Protein 7.2 6.3 - 8.3 [facility] Comment: g/dL HOSPITAL - 4.6-7.0 g/dL 1 week 4.4-7.6 g/dL 7 months-1year 5.1-7.3 g/dL 1-2 years 5.6-7.5 g/dL >3 years 6.0-8.0 g/dL 18-150 6.3-8.3 g/dL Albumin 3.7 3.5 - 5.0 [facility] g/dL [facility] A/G ratio 1.1 0.7 - 3.[address] [facility] Alkaline phosphatase 79 35 - 104 U/L [facility] AST 29 10 - 35 U/L [facility] ALT 39 5 - 50 U/L [facility] Total bilirubin <0.2 0.0 - 1.2 [facility] mg/dL [facility] Specimen Blood Performing Organization Address City/State/Zipcode Phone Number [facility] DEPARTMENT OF PATHOLOGY AND [address] [place] [phone] GENOMIC MEDICINE [address] [address] Urinalysis screen and microscopy, with reflex to culture (11/12/2019 2:44 PM CDT) Specimen site Clean catch [facility] Color, UA Straw [facility] Appearance, UA Hazy [facility] Specific gravity, UA 1.020 1.001 - 1.[address] [facility] pH, UA 8.0 5.0 - 8.[address] [facility] Protein, UA Negative Negative [facility] Glucose, UA Negative Negative [facility] Ketones, UA Negative Negative [facility] Bilirubin, UA Negative Negative [facility] Blood, UA Negative Negative [facility] Nitrite, UA Negative Negative [facility] Urobilinogen, UA <2.0 <2.[address] [facility] Leukocyte esterase, Negative Negative [facility] Epithelial cells, UA 6 /HPF [facility] WBC, UA <1 0 - 4 /HPF [facility] RBC, UA None seen 0 - 5 /HPF [facility] Bacteria, UA Few None seen [facility] Yeast, UA None seen [facility] Yeast with None seen [facility] pseudohyphae, UA [facility] Specimen Urine Performing Organization Address City/State/Zipcode Phone Number [facility] DEPARTMENT OF PATHOLOGY AND [address] [place] [address] [phone] [address] hCG qualitative, urine screen (11/12/2019 2:44 PM CDT) hCG qualitative, NegativeComment: [facility] urine Sensitivity of [facility] test: 25 mIU/mL Specimen Urine Performing Organization Address City/[facility] Phone Number [facility] DEPARTMENT OF PATHOLOGY AND [address] [place] [address] [phone] [address] Urine drugs of abuse screen (11/12/2019 2:44 PM CDT) Amphetamine screen, Negative [place] urine [facility] Barbiturate screen, Negative [place] urine [facility] Benzodiazepine Negative [place] screen, urine [facility] Cocaine screen, urine Negative [facility] Methadone metabolite Negative [place] (EDDP), urine [facility] Opiates screen, urine Negative [facility] Oxycodone screen, Negative [place] urine [facility] Phencyclidine screen, Negative [place] urine [facility] Tricyclic screen, Negative [place] urine [facility] Cannabinoid screen, Negative [place] urine Comment: [place] Drug screen minimum concentration of detectability [facility] Amphetamines 1000 ng/mL Barbiturates 200 ng/mL Benzodiazepines [...] requir ed. Specimen Urine Performing Organization Address City/[facility] Phone Number [facility] DEPARTMENT OF PATHOLOGY AND [address] [place] [address] [phone] [address] Urine culture (11/12/2019 2:44 PM CDT) Pathologist Sig nature Urine culture SEE COMMENTComment: [facility] Bacteriuria screen HOSPITAL negative. Specimen Performing Organization Address City/State/Zipcode Phone Number [facility] DEPARTMENT OF PATHOLOGY AND [address] [place], [place] [phone] [facility] [address] [place] [address] after 01/13/2019 Advance Directives For more information, please contact: [phone] Type Date Recorded Patient Shank Faker Explanati on Advance Directives, Living Will and Medical Power of Campaign Analyst
--- OUTSIDE RECORDS SUMMARY | 2020-01-14 20:03 | XMS REPORT | Clinical Summary ---
:1990 Author Organization [facility] Address [address] [place] [address] Care Team Providers Name Role Phone Unavailable Primary Care Provider Unavailable Allergies No Known Allergies Medications Medication Sig Dispensed Refills Start Date End Date Status levETIRAcetam (KEPPRA) Take 1 tablet 60 tablet 2 05/19/2017 Active 1000 MG tablet (1,000 mg total) by mouth 2 (two) times daily. vitamin Take 1 tablet by 90 tablet 3 05/20/2017 Active w/yhgtxzn-ldna-ivbzhg mouth daily. ( PLUS) 27 mg iron- [...] Not on file Results Not on fileafter 01/13/2019 Insurance Payer Benefit Plan / Group Subscriber ID Type Phone [facility] MEDICAID [place] xxxxxxxxx Medicaid [id number] Advance Directives For more information, please contact:[facility] [employer] ke'[facility] AdministrationBxkele[address] [place], [place] [phone] Code Status Date Activated Date Inactivated Comments Full Code 05/14/2017 10:10 PM 05/19/2017 2:55 PM This code status was determined by: Patient
--- OUTSIDE RECORDS SUMMARY | 2020-01-14 20:07 | XMS REPORT | Continuity of Care Document ---
:1990 Author Organization [facility] t Address [address] [place] [address] Care Team Providers Name Role Phone Asked, [...] Date Moses basurto CIGNACIGNA OPEN xxxxxxxxxxx 2019 [place] ACCESS/NETWORKxx 00:00:00 Methodis t 0-PresentHMO MEDICAIDMEDICAID xxxxxxxxx 2019 [place] 00:00:00 Methodis t 0-PresentMedicai d Problems Condition Condition Condition Status Onset Resolution Last Treating Co mments Source Name Details Category Date Date Treatment Clinician Date Seizure Seizure Disease Active [place] 11-11 Method[facility] 00:[facility]: st 00 Hypokalemi Hypokalemi Disease Active 2016-[address] [facility] Acute Acute Disease Active 2016-[address] [facility] [address] encephalop encephalop 1-30 Marianna kes - athy athy 00:00: Medical 00 Center Seizure Seizure Disease Active 2016-[address] [facility] [address] disorder disorder 1-30 [facility] 00 [place] Leukocytos Leukocytos Disease Active 2016-[address] [facility] 1-30 [facility] Less than Less than Disease Active 2016-[address] [facility] [address] 8 weeks 8 weeks 1-30 [facility] - gestation gestation 00:00: [facility] Allergies, Adverse Reactions, Alerts Allergy Allergy Status Severity Reaction(s) Onset Inactive Treating Comm ents Source Name Type Date Date Clinician No Known DA Active [facility] No Known DA Active U 2016-06 [facility] Allergie 24 Corpus s 00:00: [address] Social History Social Habit Start Date Stop Date Quantity Comments Source Sex Assigned At [facility] ethodist Alcohol intake 2019-11-12 2019-11-12 Ex-drinker [facility] thodist 00:00:00 00:00:00 (finding) Smoking Status Start Date Stop Date Source Never smoker [place] Methodis t Medications Ordered Filled Start Stop Current Ordering Indication Dosage Frequency Signature Comments Components Source Medication Medication Date Date Medication? Clinician (SIG) Name Name levETIRAcet 2019- No 750mg Q.5D Take 750 [place] am (KEPPRA) 11-1402 mg by Method i 750 MG 17:12: 00:[address] tablet 15 :00 (two) times a day. levETIRAcet 2019- No 2250mg Q.5D Take 3 [place] (KEPPRA) 11-14 tablets Meth maude 750 MG 00:00: 23:59 (2,[address] tablet 00 :00 total) by mouth 2 (two) times a day for 30 days. B 2019- No 1{tbl} QD Take 1 [place]z complex-vit 11-14 tablet by Me mhoan carter 00:00: 23:[address] C-folic 00 :00 daily for acid 30 days. (FOLBEE PLUS 5 MG) 5 mg tablet per tablet cloBAZam 2019- No 10mg QD Take 1 [place] (ONFI) 10 11-14 tablet (10 Met hodi mg tablet 00:00: 23:59 mg total) st 00 :00 by mouth nightly for 30 days. ferrous 2019- No 325mg Q.5D Take 1 [place] sulfate 325 11-14 tablet Metho di (65 FE) MG 00:00: 23:59 ([address] tablet 00 :00 total) by mouth 2 (two) times a day with meals for 30 days. docusate 2019- No 100mg Q.5D Take 1 [place] on sodium [...] blood 2019-11-15 12:02:13 114 mm[Hg] Luz pinzon [facility] pressure Diastolic blood 2019-11-15 12:02:13 74 mm[Hg] Julee on [facility] pressure Heart rate 2019-11-15 12:02:13 93 /min Enrique Piedra Body temperature 2019-11-15 12:02:13 36.78 Melody Sonja ton [facility] Respiratory rate 2019-11-15 12:02:13 18 /min Sonja ton [facility] Oxygen saturation in 2019-11-15 12:02:13 97 /min [...] PLATELET AND 2019-11-13 04:00:00 Caesar Maxwell on [facility] DIFFERENTIAL BASIC METABOLIC PANEL 2019-11-13 04:00:00 Caesar Maxwell on [facility] TOTAL IRON BINDING 2019-11-13 04:00:00 Caesar Maxwell [facility] CAPACITY FERRITIN LEVEL 2019-11-13 04:00:00 Caesar Maxwell Met hodist ESTIMATED GFR 2019-11-13 04:00:00 Caesar Maxwell Met hodist MANUAL DIFFERENTIAL 2019-11-13 04:00:00 Caesar Maxwell MRI BRAIN W WO CONTRAST 2019-11-13 02:16:00 Bina Bonds CONSULT TO OSTOMY CARE 2019-11-12 23:40:27 Caesar Maxwell [facility] NURSE ECG 12-LEAD 2019-11-12 21:10:47 Bina Bonds MARCELINO 2019-11-12 19:40:00 Bina Bonds FOLATE LEVEL 2019-11-12 19:40:00 Bina Bonds VITAMIN B12 LEVEL 2019-11-12 19:40:00 Bina Bonds [facility] C-REACTIVE PROTEIN 2019-11-12 19:40:00 Bina Bonds on [facility] HOMOCYSTINE, PLASMA 2019-11-12 19:40:00 Bina Bonds [facility] CORTISOL LEVEL, RANDOM 2019-11-12 19:40:00 Bina Bonds [facility] SEDIMENTATION RATE 2019-11-12 19:40:00 Bina Bonds on [facility] RHEUMATOID FACTOR 2019-11-12 19:40:00 Bina Bonds [facility] THYROID STIMULATING 2019-11-12 19:40:00 Bina Bonds [facility] HORMONE T4, FREE 2019-11-12 19:40:00 Bina Bonds SYPHILIS TOTAL ANTIBODY 2019-11-12 19:40:00 Bina Bonds HIV AG/AB COMBINATION 2019-11-12 19:40:00 Bina Bonds [facility] VITAMIN D 25 HYDROXY 2019-11-12 19:40:00 Bina Bonds stoalberta [facility] LEVEL CREATINE KINASE, TOTAL 2019-11-12 19:40:00 Bailey, Shari Ladd on [facility] (CPK) Adolfo PROLACTIN LEVEL 2019-11-12 19:40:00 Shari Bailey Meth odist Adolfo MARCELINO TITER 2019-11-12 19:40:00 Shari Bailey Meth odist Adolfo CT CERVICAL SPINE WO 2019-11-12 18:12:54 Shari Bailey Nunez [facility] CONTRAST Adolfo CT MAXILLOFACIAL WO 2019-11-12 18:09:40 Shari Bailey [facility] CONTRAST Adolfo CT HEAD WO CONTRAST 2019-11-12 18:09:19 Shari Bailey Enrique [facility] Adolfo XR CHEST 1 VW PORTABLE 2019-11-12 17:35:36 Leo Shari Ladd on [facility] Adolfo HC COMPLETE BLD COUNT 2019-11-12 17:04:00 Shari Bailey [facility] W/AUTO DIFF [facility] COMPREHENSIVE METABOLIC 2019-11-12 17:04:00 Shari Bailey [facility] PANEL [facility] ALCOHOL LEVEL, BLOOD 2019-11-12 17:04:00 Leo Shari Enrique [facility] Adolfo KEPPRA (LEVETIRACETAM) 2019-11-12 17:04:00 Shari Bailey on [facility] LEVEL [facility] ESTIMATED GFR 2019-11-12 17:04:00 Shari Bailey Enrique Meth odist Adolfo URINE CULTURE 2019-11-12 14:44:00 Keanu Flores Meth odist URINALYSIS SCREEN AND 2019-11-12 14:44:00 Keanu Flores [facility] MICROSCOPY, WITH REFLEX TO CULTURE HCG QUALITATIVE, URINE 2019-11-12 14:44:00 Keanu Flores [facility] SCREEN URINE DRUGS OF ABUSE 2019-11-12 14:44:00 Keanu Flores [facility] SCREEN Plan of Care Planned Activity Planned Date Details Comments Source Future Scheduled 2020-01-14 INFLUENZA VACCINE Luz n [facility] Test 00:00:00 [code = INFLUENZA VACCINE] Future Scheduled 2010 Screening for Nunez Me thodist Test 00:00:00 malignant neoplasm of cervix (procedure) [code = 464892938] Encounters Start End Encounter Admission Attending Care Care Encounter Source Date/Time Date/Time Type Type Clinicians Facility Department ID 2019-11-29 2019-11-29 Emergency Rohit [facility] [id number] 13:51:42 18:42:00 Brittany Leach [id number] [place] 4.2.7.2.686 [place] [id number] 2019-11-29 2019-11-29 [facility] [id number] 00:00:00 00:00:00 Cecilia Leach [id number] [place] 4.2.7.2.686 [place] [id number] [address] 2019-11-29 2019-11-29 Orders Doctor ELVIA [id number] 00:00:00 00:00:00 Only Unassigned, MICHAELLE 350.1.13.10 [place] [facility] 4.2.7.2.686 [id number] 2019-11-12 2019-11-15 Inpatient [place] [id number] [place] 00:00:00 00:00:00 [address]RI[address] 2019-10-24 2019-10-24 [facility] [id number] 14:33:37 23:59:00 Encounter Sj OCHOA [id number] MEDICAL 4.2.7.2.686 [place] [id number] 2019-10-11 2019-10-11 [facility] [id number] 00:00:00 00:00:00 Cecilia Leach 350.1.13.10 [place] 4.2.7.2.686 Professio [id number] [address] 2019-10-06 2019-10-06 [facility] [id number] 08:13:12 15:30:52 ne Visit Cecilia Leach [id number] [place] 4.2.7.2.686 [place] [id number] [address] 2019-08-12 2019-08-12 Case Ad, [facility] [id number] 00:00:00 00:00:00 Management Daina Leach [id number] [place] 4.2.7.2.686 [place] [id number] [address] 2019-08-12 2019-08-12 Telephone Ad, [facility] [id number] 00:00:00 00:00:00 Daina Laech 350.1.13.10 [place] 4.2.7.2.686 Profess[place] [id number] [address] 2019-08-10 2019-08-10 Office Admodesto [facility] [id number] 14:12:35 15:35:54 Visit Daina Leach 350.1.13.10 [place] 4.2.7.2.686 Professio [id number] [address] Results Test Description Test Test Results Result Source Time Comments Comments Continuous EEG 2019-11- CONTINUOUS VIDEO-EEG [facility] [address] 17:34:53 [...] Comme nts MARCELINO titer (test code = 53530-0) 1:160 Not-Detected A MARCELINO pattern (test code = 37194-7) Homogeneous Not-Detected A Lab Interpretation (test code = 97817-9) Abnormal [place] CphkazlztRMA4295-95-37 13:08:33 Test Item Value Reference Range Interpretation Comments MARCELINO screen (test code Positive Negative A Test p erformed using = 550) NOVA Lite DAPI MARCELINO kit (Indirect Immunofluoresce nce Assay) for Anti -Nuclear Antibody on [employer]A-Lyser 16 0 Analyzer. Lab Interpretation Abnormal (test code = 04120-5) [place] MethodistCB with platelet and gayxxapkwnnb2764-35-36 08:57:11 Test Item Value Reference Range Interpretation Comments WBC (test code = 47759-2) 7.99 4.50- 11.00 k/uL RBC (test code = 25191-8) 4.06 m/uL 4.2-5.5 L HGB (test code = 718-7) 10.8 g/dL 12-16 L HCT (test code = 4544-3) 34.1 % 37-47 L MCV (test code = 787-2) 84.0 fL 82-100 MCH (test code = 785-6) 26.6 pg 27-34 L MCHC (test code = 786-4) 31.7 g/dL 31-37 RDW - SD (test code = 32049-9) 48.1 fL 37-55 MPV (test code = 86056-4) 10.2 fL 8.8-13.2 Platelet count (test code = 251 150- 400 k/uL 43523-0) Nucleated RBC (test code = 0.00 /100 WBC 82415-9) Neutrophils (test code = 42185-9) 51.0 % 39-69 Lymphocytes (test code = 33166-8) 34.0 % 25-45 Monocytes (test code = 04101-6) 13.0 % 0-10 H Eosinophils (test code = 98042-2) 2.0 % 0-5 Basophils (test code = 80640-4) 0.0 % 0-1 Lab Interpretation (test code = Abnormal 16256-4) Enrique MethodistManual fhhjdfjhovag5448-11-56 08:57:11 Test Item Value Reference Range Interpretation Comments Manual differential (test code = PERFORMED 23641-0) Neutrophils (test code = 51.0 % 39-69 62701-6) Lymphocytes (test code = 34.0 % 25-45 44689-0) Monocytes (test code = 24758-2) 13.0 % 0-10 H Eosinophils (test code = 2.0 % 0-5 09903-4) Basophils (test code = 97801-7) 0.0 % 0-1 Metamyelocytes (test code = 0 % 740-1) Promyelocytes (test code = 0 % 783-1) Platelet slide review (test code Sana adequate = 25368-7) Anisocytosis (test code = 702-1) Moderate Ovalocytes (test code = 774-0) Moderate Enlarged platelets (test code = Moderate A 95767-1) Lab Interpretation (test code = Abnormal 61385-5) Enrique MethodistContinuous EEG xeosunzzdf7350-54-44 07:42:19CONTINUOUS VIDEO- EEG MONITORING REPORT Patient Name: [...] regions independently. No seizures occurred. ICD-10 Code: R56.9[facility] HospitalistBasic metabolic kcyvg2791-24-70 06:44:31 Test Item Value Reference Range Interpretation Comments Sodium (test code = 2951-2) 135 135- 148 mEq/L Potassium (test code = 2823-3) 3.4 3.5- 5.0 mEq/L L Chloride (test code = 2075-0) 103 98- 112 mEq/L CO2 (test code = 8-9) 21 24- 31 mEq/L L Anion gap (test code = 01055-3) 11@ANIO 7- 15 mEq/L BUN (test code = 3094-0) 9 mg/dL 6-20 Creatinine (test code = 2160-0) 0.48 mg/dL 0.5-0.9 L Glucose (test code = 2345-7) 95 mg/dL 65-99 Calcium (test code = 50402-4) 9.2 mg/dL 8.3-10.2 Lab Interpretation (test code = Abnormal 85852-9) Enrique MethodistEstimated [id number] 06:44:31 Test Item Value Reference Range Interpretation Comments Estimated GFR (test >=90 mL/min/1.73 m2 [facility] Units code = 5488) InterpretationG 1 >=90 Normal or highG2 60-89 Mildly nlvncletjF3r 45-59 Mildly to mode rately xjtsnvjfeK2h 30-44 Moderately to severely decreasedG4 15-29 Severely decre asedG5 <15 Kidn ey failureThe eGFR was calculated alyssa fortune the Chronic Kidney Disease Epidemiology Co llaboration (CKD-EPI) equat ion. Interpretation is based on recommendations of the National Kidney Foundation-Kidn ey Disease Outcomes Qualit y Initiative (NKF-KDOQI) pub lished in 2014. Enrique MethodistKeppra (Levetiracetam) navaw4962-91-33 05:29:41 Test Item Value Reference Interpretation Comments Range Levetiracetam 30 ug/mL 12-46 INTERPRETIVE I NFORMATION: (test code = Keppra 4478-4) (Levetiracetam) Therapeutic Range: 12-46 u g/mL Toxic: Not wel l EstablishedPhar macokinetics of levetiracetam a re affected by renal function. Adverse effects may include andi nolence, weakness, heada justus and vomiting.This l evetiracetam (Keppra) immuno assay uses the [employer] reagents, which has known cross -reactivity [...] to determ ine drug concentrations. Performed by [employer] [facility],[address] [facility], [facility] 84 08 esr .[employer], Josué Barreto MD, Lab. Director Enrique CruzistVitamin D 25 hydroxy hrrtg2808-22-22 15:46:04 Test Item Value Reference Range Interpretation [...] hods. Lab Interpretation Abnormal (test code = 43323-0) Enrique PiedraContinuous EEG gkvdtfspef7730-29-87 07:19:24 CONTINUOUS VIDEO-EEG MONITORING REPORT Patient Name: [...] regions independently. No seizures occurred. ICD-10 Code: R56.9[facility] EEG (routine) - Baseline [id number] 06:43:32EEG RECORDING AWAKE & ASLEEP - Baseline [...] agree with the above findings. Richard Henley MDNorth [place] MethodistECG 12 dxsd1540-61-17 20:07:26 Test Item Value Reference Range Interpretation Comments Ventricular rate (test 81 code = 253) Atrial rate (test code = 81 255) WV interval (test code = 164 266) QRSD [...] Ibarra MD (1082) on 11/13/2019 8:07:25 PM [place] MethodistSyphilis total lrqmtvyg5106-34-96 10:13:08 Test Item Value Reference Range Interpretation Comments Syphilis total Non-reactive Non-reactive No serologica l antibody (test code evidence of syphilis = 6194) infection. [place] MethodistFerritin mctva4992-23-56 07:54:01 Test Item Value Reference Range Interpretation Comments Ferritin level (test code = 2276-4) <13 13-150 A Lab Interpretation (test code = Abnormal 21733-1) [place] MethodistTotal iron binding bcoceabo1713-43-25 07:50:12 Test Item Value Reference Range Interpretation Comments Iron level (test code = 2498-4) 20 ug/dL 37-145 L Iron binding capacity (test code = 335 ug/dL 930-781 0729-7) % Saturation (test code = 2502-3) 6.0 % 15-38 L Lab Interpretation (test code = Abnormal 18816-9) [place] ScientologyMRI Brain W Wo Qslsoyql2775-26-21 06:11:14Hm Interface, Radiology Results 11/13/2019 6:14 AM [...] hypoperfusion or cuco-ictal hyperperfusion to localize seizure focus.[facility]-[id number] MethodistSedimentation rate 2019-11-12 22:03:32 Test Item Value Reference Range Interpretation Comments Sedimentation rate (test code = 9 0- 20 mm/hr 51756-6) [facility] vdvhpzomymb0949-53-35 21:46:22 Test Item Value Reference Range Interpretation Comments HIV Ag/Ab combination (test code Non-reactive Non-reactive = 5299) [facility] CenterVitamin B12 jxsuh9398-98-83 20:56:33 Test Item Value Reference Range Interpretation Comments Vitamin B12 (test 466 pg/mL 211-946 Significan t overlap code = 2132-9) exists betwee n normal and deficiency states.However, most patients with deficiencies wi ll have Serum B12 <2 00 pg/mL. [place] MethodistFolate sjmdl0212-78-45 20:56:33 Test Item Value Reference Range Interpretation Comments Folate (test code = 2284-8) 9.3 ng/mL 4.8-24.2 [place] MethodistT4, dqeb2149-02-79 20:48:50 Test Item Value Reference Range Interpretation Comments T4, free (test code = 3024-7) 1.2 ng/dL 0.9-1.7 [place] MethodistCortisol level, blwspo3279-10-51 20:48:37 Test Item Value Reference Range Interpretation Comments Cortisol, random 2 ug/dL Reference R anges are not (test code = 2143-6) establi shed for non-timed Cortisol levels .Reference Range for Timed Cortisol: 6 - 10 AM 6 - 18 ug/dl 4 - 8 PM 3 - 11 ug/ dl [place] MethodistThyroid stimulating vmgyame7197-88-68 20:48:37 Test Item Value Reference Range Interpretation Comments TSH (test code = 3016-3) 2.21 0.27- 4.20 uIU/mL [place] MethodistProlactin obtjy2101-41-19 20:48:36 Test Item Value Reference Range Interpretation Comments Prolactin (test code = 2842-3) 22 ng/mL 5-23 [place] MethodistCreatine kinase, total (CPK)2019-11-12 20:42:35 Test Item Value Reference Range Interpretation Comments Creatine kinase (test code = 2157-6) 56 U/L 26-192 [place] MethodistC-reactive rqiqvkq7467-13-33 20:42:35 Test Item Value Reference Range Interpretation Comments CRP (test code = 1987-) <0.30 0-0.5 [place] MethodistRheumatoid qhgcsx7473-19-13 20:36:01 Test Item Value Reference Range Interpretation Comments Rheumatoid factor (test code = 00491-6) <10 0- 13 IU/mL [place] MethodistHomocystine, kwpipr0553-37-39 20:36:01 Test Item Value Reference Range Interpretation Comments Homocysteine (test 10.3 umol/L 0-15 The risk for coronary code = 23072-9) vascular dis ease increases progressively w ith homocysteine concentration. A 3.4 times greater r isk is associated wit h a homocysteine concentration o f greater than 15.8 umol/L as carlin red to a concentration below 14.1 umol/L. [place] MethodistCT Cervical Spine Wo Ijuqyuzx8891-65-52 18:17:20Hm Interface, Radiology Results 11/12/2019 6:20 PM [...] fracture or subluxation identified in the cervical spine.[facility]-[id number] MethodistCT Maxillofacial Wo Sqszmdli2351-76-24 18:15:46Hm Interface, Radiology Results 11/12/2019 6:18 PM [...] soft tissues are unremarkable.The paranasal sinuses are clear.[facility]-[id number] Scient[facility] CT Head Wo [id number] 18:11:26Hm Interface, Radiology Results 11/12/2019 6:14 PM [...] air cells are clear.IMPRESSION:No acute intracranial abnormality identified.[facility]-[id number] MethodistComprehensive metabolic uzoew0487-31-31 18:10:58 Test Item Value Reference Range Interpretation Comments Sodium (test code = 142 135- 148 mEq/L 2951-2) Potassium (test code = 3.7 3.5- 5.0 mEq/L 2823-3) Chloride (test code = 106 98- 112 mEq/L 2075-0) CO2 (test code = 2027-9) 22 24- 31 mEq/L L Anion gap (test code = 14@ANIO 7- 15 mEq/L 89287-4) BUN (test code = 3094-0) 4 mg/dL 6-20 L Creatinine (test code = 0.60 mg/dL 0.5-0.9 2160-0) Glucose (test code = 98 mg/dL 65-99 2345-7) Calcium (test code = 9.4 mg/dL 8.3-10.2 79378-0) Protein (test code = 7.2 g/dL 6.3-8.3 -[place] n 2885-2) 4.6-7.0 g/dL1 week 4.4-7 .6 g/dL7 months-1y ear 5.1-7 .3 g/dL1-2 years 5.6-7 .5 g/dL>3 years 6.0-8 .0 g/iM10-905 6.3-8 .3 g/dL Albumin (test code = 3.7 g/dL 3.5-5 1751-7) A/G ratio (test code = 1.1 0.7-3.8 1759-0) Alkaline phosphatase 79 U/L 35-104 (test code = 6768-6) AST (test code = 1920-8) 29 U/L 10-35 ALT (test code = 1742-6) 39 U/L 5-50 Total bilirubin (test <0.2 0-1.2 code = 1975-2) Lab Interpretation (test Abnormal code = 20005-6) [place] MethodistAlcohol level, [id number] 18:06:03 Test Item Value Reference Range Interpretation Comments Alcohol percent None Detected % Normal (test code = None Detec tedLegal 5643-2) Intoxication in [place] 80 mg/dL (0.08% ) - Whole BloodToxi c Concentration 200 mg/dL (0.2%)Potential ly Fatal 350 - 500 mg/dL (0.35 - 0 .5%) [place] MethodistXR Chest 1 Vw [id number] 17:37:03Hm Interface, Radiology Results 11/12/2019 5:40 PM CDTEXAMINATION: XR CHEST 1 VW PORTABLECLINICAL HISTORY: SOBXR CHEST 1 VW PORTABLE images are submittedCOMPARISON: NONEFINDINGS:The cardiac silhouette is normal in size. The pulmonary vasculature is within normal limits. The lung zones have no focal area of consolidation. There is no pleural effusion or pneumothorax.IMPRESSION:1. Thereis no acute cardiopulmonary disease.[id number] Scientology Urinalysis screen and microscopy, with reflex to qahttjw9647-58-24 16:10:59 Test Item Value Reference Range Interpretation Comments Specimen site (test code = Clean catch 9859351) Color, UA (test code = 5778-6) Straw Appearance, UA (test code = Hazy 5767-9) Specific gravity, UA (test code = 1.020 1.001-1.035 5811-5) pH, UA (test code = 5803-2) 8.0 5.0-8.5 Protein, UA (test code = 14939-8) Negative Negative Glucose, UA (test code = 56349-1) Negative Negative Ketones, UA (test code = 2514-8) Negative Negative Bilirubin, UA (test code = Negative Negative 5770-3) Blood, UA (test code = 5794-3) Negative Negative Nitrite, UA (test code = 5802-4) Negative Negative Urobilinogen, UA (test code = <2.0 <2.0 54550-6) Leukocyte esterase, UA (test code Negative Negative = 5799-2) Epithelial cells, UA (test code = 6 /HPF 5787-7) WBC, UA (test code = 5821-4) <1 0- 4 /HPF RBC, UA (test code = 23834-9) None seen 0- 5 /HPF Bacteria, UA (test code = Few None seen 55300-3) Yeast, UA (test code = 52326-6) None seen Yeast with pseudohyphae, UA (test None seen code = 74012-7) Enrique Bowman drugs of abuse oljkkx0579-15-85 15:33:59 Test Item Value Reference Interpretation Comments Range Amphetamine screen, Negative urine (test code = 3349-8) Barbiturate screen, Negative urine (test code = 3377-9) Benzodiazepine Negative screen, urine (test code = 3390-2) Cocaine screen, Negative urine (test code = 3397-7) Methadone Negative metabolite (EDDP), urine (test code = 64962-1) Opiates screen, Negative urine (test code = 3879-4) Oxycodone screen, Negative urine (test code = 84264-5) Phencyclidine Negative screen, urine (test code = 3936-2) Tricyclic screen, Negative urine (test code = 57463-4) Cannabinoid screen, Negative Drug scr een minimum [...] efinitive testing is requ ired. Enrique Bowman ocmnlde3113-68-66 15:28:27 Test Item Value Reference Range Interpretation Comments Urine culture (test SEE COMMENT Bacteriu landry screen code = 8921427) negative. Enrique Carrizales qualitative, urine tvdqgy1810-36-81 15:26:18 Test Item Value Reference Range Interpretation Comments hCG qualitative, Negative Sensitivity of HCG test: urine (test code = 25 mIU/mL 2106-3) Enrique MethodistRPR Zqpeuvlyklq8576-10-19 16:47:08 Test Item Value Reference Range Interpretation [...] = 06-14-2020 N Expiration Dt) Thyroid Stimulating Hjmshdm4780-29-53 06:31:44 Test Item Value Reference Range Interpretation Comments TSH (test code = TSH) 3.830 mIU/mL 0.270-4.200 Lipid Gimoj8794-05-55 06:24:40 Test Item Value Reference Range Interpretation Comments Cholesterol Total 152 mg/dL 0-200 RISK OF HE ART (test code = DISEASEPublishe d by Cholesterol Total) [place] [employer] Marcelino lyte Optimal Borderl ine [...] LDL/HDL Ratio=L DL Calc/HDL Chol Urine Drug Bdkizt8611-88-92 21:53:06 Test Item Value Reference Range Interpretation [...] if desired . Urinalysis with Culture, if inxjxuelr3216-75-13 21:40:53 Test Item Value Reference Range Interpretation [...] Indicated Not Indicated Micro Ind?) Comprehensive Metabolic Reiue8391-91-29 21:34:15 Test Item Value Reference Range Interpretation [...] = A/G 1.6 ratio N Ratio) Alcohol Dobas1827-34-13 21:34:15 Test Item Value Reference Range Interpretation Comments Ethanol Level (test <0.00 g/dL 0.00-0.01 Intoxica vandana 0.080 g/dL code = Ethanol or more Level) Ethanol Inst (test <0 N code = Ethanol Inst) Comprehensive Metabolic Kxuks2595-07-66 21:34:15 Test Item Value Reference Range Interpretation [...] National Kidney Foundation, http://nkdep.ni h.gov Comprehensive Metabolic Wywlp7962-86-29 21:34:15 Test Item Value Reference Range Interpretation [...] Foundation, http://nkdep.ni h.gov Complete Blood Count with Ztuxkhqhjmrv2166-56-03 21:15:24 Test Item Value Reference Range Interpretation [...] code = IPF) 0 % N Automated Ttvspdeoethf2423-97-23 21:15:24 Test Item Value Reference Range Interpretation Comments Neutro Auto (test code = Neutro 54.3 % 36.0-70.0 Auto) Lymph Auto (test code = Lymph Auto) 32.3 % 12.0-44.0 [place] Auto (test code = [place] Auto) 11.1 % 0.0-11.0 H Eos, Auto (test code = Eos, Auto) 1.3 % 0.0-7.0 Basophil Auto (test code = Basophil 0.7 % 0.0-2.0 Auto) Neutro Absolute (test code = Neutro 6.2 x10 1.6-7.4 Absolute) Lymph Absolute (test code = Lymph 3.71 x10 .50-4.60 Absolute) [place] Absolute (test code = [place] 1.28 x10 .00-1.20 H Absolute) Eos Absolute (test code = Eos 0.15 x10 0.00-0.74 Absolute) Baso Absolute (test code = Baso 0.08 x10 0.00-0.21 Absolute) IG [id number] 21:15:24 Test Item Value Reference Range Interpretation Comments IG (test code = IG) 0.3 % 0.0-5.0 IG Abs (test code = IG Abs) 0 x10 N HCG Qualitative [id number] 20:45:17 Test Item Value Reference Range Interpretation [...] 72 hours. Lot # (test code = [id number] N Lot #) Expiration Dt (test 2020-12-12 N code = Expiration Dt) Neg Control (test Negative code = Neg Control) Pos Control (test Positive code = Pos Control) Internal QC (test Acceptable code = Internal QC) RPR [id number] 12:07:58 Test Item Value Reference Range Interpretation [...] = 04-14-2020 N Expiration Dt) Thyroid Stimulating [id number] 07:59:52 Test Item Value Reference Range Interpretation Comments TSH (test code = TSH) 0.717 mIU/mL 0.270-4.200 Lipid [id number] 07:52:46 Test Item Value Reference Range Interpretation Comments Cholesterol Total 141 mg/dL 0-200 RISK OF HE ART (test code = DISEASEPublishe d by Cholesterol Total) [place] [employer] Marcelino lyte Optimal Borderl ine [...] LDL/HDL Ratio=L DL Calc/HDL Chol Urine Drug [id number] 15:27:40 Test Item Value Reference Range Interpretation [...] matory test if desired . Comprehensive Metabolic [id number] 15:15:20 Test Item Value Reference Range Interpretation [...] A/G 1.9 ratio N Ratio) Comprehensive Metabolic [id number] 15:15:20 Test Item Value Reference Range Interpretation [...] the National Kidney Foundation, http://nkdep.ni h.gov Alcohol [id number] 15:15:20 Test Item Value Reference Range Interpretation Comments Ethanol Level (test <0.00 g/dL 0.00-0.01 Intoxica vandana 0.080 g/dL code = Ethanol or more Level) Ethanol Inst (test <0 N code = Ethanol Inst) Comprehensive Metabolic [id number] 15:15:20 Test Item Value Reference Range Interpretation [...] ag e have not been validated by [facility] MDRD study and should be [...] ag e have not been validated by [facility] MDRD study and should be interpreted wit h caution. eGFR R esult Interpretation: eGFR > or = 60 is in the Normal RangeeGF R < 60 may mean kid shannan diseaseeGFR < 1 5 may mean kidney failure Rang es recommended by the National Kidney Foundation, http://nkdep.ni h.gov Urinalysis [id number] 15:11:20 Test Item Value Reference Range Interpretation Comments UA WBC (test code = UA WBC) 6-10 0-5 A UA RBC (test code = UA RBC) 0-5 0-5 UA Bacteria (test code = UA Moderate A Bacteria) UA Squam Epithelial (test code = UA TNTC A Squam Epithelial) UA Mucous (test code = UA Mucous) Few A Urinalysis with Microscopic if [id number] 14:42:58 Test Item Value Reference Range Interpretation [...] GL_SJM_UA_MICRO _IN D Complete Blood Count with [id number] 14:37:26 Test Item Value Reference Range Interpretation [...] code = IPF) 0 % N Automated [id number] 14:37:26 Test Item Value Reference Range Interpretation Comments Neutro Auto (test code = Neutro 65.8 % 36.0-70.0 Auto) Lymph Auto (test code = Lymph Auto) 25.5 % 12.0-44.0 [place] Auto (test code = [place] Auto) 7.3 % 0.0-11.0 Eos, Auto (test code = Eos, Auto) 0.7 % 0.0-7.0 Basophil Auto (test code = Basophil 0.5 % 0.0-2.0 Auto) Neutro Absolute (test code = Neutro 6.0 x10 1.6-7.4 Absolute) Lymph Absolute (test code = Lymph 2.34 x10 .50-4.60 Absolute) [place] Absolute (test code = [place] .67 x10 .00-1.20 Absolute) Eos Absolute (test code = Eos 0.06 x10 0.00-0.74 Absolute) Baso Absolute (test code = Baso 0.05 x10 0.00-0.21 Absolute) IG [id number] 14:37:26 Test Item Value Reference Range Interpretation Comments IG (test code = IG) 0.2 % 0.0-5.0 IG Abs (test code = IG Abs) 0 x10 N HCG Qualitative [id number] 14:34:08 Test Item Value Reference Range Interpretation [...] 72 hours. Lot # (test code = [id number] N Lot #) Expiration Dt (test 2020-03-14 N code = Expiration Dt) Neg Control (test Negative code = Neg Control) Pos Control (test Positive code = Pos Control) Internal QC (test Acceptable code = Internal QC) DRUGS OF ABUSE SCREEN [id number] 17:11:00 Test Item Value Reference Range Interpretation [...] = [place]) concentrati on: 300 ng/mL URINALYSIS [id number] 17:08:00 Test Item Value Reference Range Interpretation [...] (test code = MOD NONE BACU) URINALYSIS [id number] 17:00:00 Test Item Value Reference Range Interpretation [...] (test code = NONE BACU) HCG SERUM [id number] 16:52:00 Test Item Value Reference Range Interpretation Comments HCG SERUM QUAL (test code = HCGQL) NEGATIVE NEGATIVE - CT HEAD/BRAIN W/O [id number] 16:51:00 FAX: Theresa Fields MD [place]: [address] St: REG Name: HEATHER HOPE [facility] : 1990 Age/S: 28/F [address] Unit: [id number] Loc: [place], [place] Phys: [place] [id number] Acct: [id number] Dis Date: Status: REG ER PHONE #: [phone] Exam Date: 02/23/2019 1642 FAX #: [phone] Reason: SEIZURE EXAMS: CPT CODE: [id number] CT HEAD/BRAIN W/O CONT 68383 Dictation location: U19. CT HEAD WITHOUT CONTRAST. [...] (1651) t.GAVIOTAR.SP17 Orig Print D/T: S: 02/23/2019 (6644 PAGE 1 Signed ReportBASIC METABOLIC [id number] 16:31:00 Test Item Value Reference Range Interpretation [...] CA) 8.8 mg/dl 8.0-10.5 N BASIC METABOLIC [id number] 16:26:00 Test Item Value Reference Range Interpretation [...] code = CA) mg/dl 8.0-10.5 CBC W/AUTO [id number] 16:15:00 Test Item Value Reference Range Interpretation [...] 3-60 N code = VLDL) RAPID PLASMA [id number] 10:31:00 Test Item Value Reference Range Interpretation Comments RAPID PLASMA REAGIN (test code = Nonreactive Nonreactive RPR) GLYCOSYLATED HEMOGLOBIN (HA1C)2018-12-07 10:05:00 Test Item Value Reference Range Interpretation Comments GLYCOSYLATED HEMOGLOBIN (HA1C) 5.8 % TOT HB 4.5-6.2 N (test code = GLYHGB) [id number] 15:31:00 Test Item Value Reference Range Interpretation Comments ACETAMINOPHEN (test < 1 MCG/ML 10-30 L Acetamin ophen is code = ACET) possibly toxic at levels of: 1. m ore than 150 MCG/ML 4 hours post kaylin stion. 2. more than 5 0 MCG/ML 12 hours post ingestion. [id number] 15:31:00 Test Item Value Reference Range Interpretation Comments SALICYLATE (test code = < 3 MG/DL 0-20 N Refe rence Range: BOSSMAN) Analgesic...... ...... ...... < 10 mg /dl Therapeutic.... ...... ...... 15-20 mg /dl Mild Toxicity....... ...... . > 30 mg/dl Severe Toxicity....... ..... > 60 mg/dl UA RFLX [id number] 14:18:00 Test Item Value Reference Range Interpretation [...] Clean Catch (test code = UASPEC) UA [id number] 14:18:00 Test Item Value Reference Range Interpretation Comments UA WBC (test code = WBCU) < 10 #/hpf <10 UA RBC (test code = RBCU) 0-2 #/hpf NONE SEEN A UA BACTERIA (test code = BACU) RARE #/hpf NONE SEEN UA SQUAMOUS CELLS (test code = 0 - 20 #/lpf <100 SQU) UA MUCUS (test code = MUCU) 1+ #/lpf NONE SEEN BASIC METABOLIC [id number] 14:16:00 Test Item Value Reference Range Interpretation [...] 9.4 MG/DL 8.7-10.5 N CA) HEPATIC FUNCTION [id number] 14:16:00 Test Item Value Reference Range Interpretation [...] 50-136 N TOTAL (test code = ALKP) [id number] 14:16:00 Test Item Value Reference Range Interpretation Comments CK (test code = CKT) 87 Units/L 26-192 N [id number] 14:16:00 Test Item Value Reference Range Interpretation Comments ALCOHOL (test code = < 3 MG/DL 0-10 N 0 - 10: Should be ALC) interpreted as NEGATIVE. 11 - 50: None to mild euphoria. 51 - 100: Mild influence on vision and dark adapta tion. > 80: Legal intoxication; D epression of MOTOR RUNNER; Increasing degr ee of poisoning. > 400: Fatalities repo rted. Results are for medical purposes only a nd not forlegal or emp loyment evaluative purp oses. BASIC METABOLIC [id number] 14:09:00 Test Item Value Reference Range Interpretation [...] 9.4 MG/DL 8.7-10.5 N CA) HEPATIC FUNCTION [id number] 14:09:00 Test Item Value Reference Range Interpretation [...] TOTAL (test Units/L 50-136 code = ALKP) [id number] 14:09:00 Test Item Value Reference Range Interpretation Comments CK (test code = CKT) Units/L 26-192 [id number] 14:09:00 Test Item Value Reference Range Interpretation Comments ALCOHOL (test code = ALC) MG/DL 0-10 LACTIC ACID [id number] 13:50:00 Test Item Value Reference Range Interpretation Comments LACTIC ACID POC 0.97 MMOL/L 0.90-1.70 N Performed by certified (test code = LACTP) line painting machine operator at [facility] [id number] 13:48:00 Test Item Value Reference Range Interpretation Comments GLUBED (test code = 88 MG/DL 65-99 N Performe d by certified GLUBED) line painting machine operator at [facility] DRUG OF ABUSE SCREEN [id number] 13:43:00 Test Item Value Reference Interpretation Comments [...] by layton rader methods (i.e., GC/MS) at [facility]. Results of scre en may not be usedin crimi nal justice, job performance or professionalcre dential review, or infa nt custody issues. Negativ e Arthur Level ng/ml ------- ----- Cocaine 300 Methamp hetamine (Ecstacy) 500 Cannabinoids (THC) 50 Amphetamine 1000 Barbiturate s 200 Benzodia zepines 200 Opiat es 300 Ph encyclidine (PCP) 25 UR HCG [id number] 13:39:00 Test Item Value Reference Range Interpretation [...] using aquantitative h CG assay. UA RFLX [id number] 13:38:00 Test Item Value Reference Range Interpretation [...] Clean Catch (test code = UASPEC) UA [id number] 13:38:00 Test Item Value Reference Range Interpretation Comments UA WBC (test code = WBCU) #/hpf <10 UA RBC (test code = RBCU) #/hpf NONE SEEN UA SQUAMOUS CELLS (test code = SQU) #/lpf <100 UA RFLX [id number] 13:38:00 Test Item Value Reference Range Interpretation [...] Clean Catch (test code = UASPEC) UA [id number] 13:38:00 Test Item Value Reference Range Interpretation Comments UA WBC (test code = WBCU) #/hpf <10 UA RBC (test code = RBCU) #/hpf NONE SEEN UA SQUAMOUS CELLS (test code = SQU) #/lpf <100 CBC W/AUTO [id number] 13:26:00 Test Item Value Reference Range Interpretation [...] = BA#) 0.05 x10 3/uL 0.0-0.2 N [id number] 19:07:00 Test Item Value Reference Interpretation Comments Range LEVETIRACETAM 28.7 ug/mL 10.0-40.0 This test was developed and (test code = its performance LEVTAM) characteristics determined by [facility]. It has not been cleared orappro froylan by the Food and Drug Administration. Performed At: [facility] [facility], [place] [id number] ra Larissa MENDOZA Ph:[phone] BASIC METABOLIC [id number] 04:58:00 Test Item Value Reference Range Interpretation [...] code = 8.9 MG/DL 8.7-10.5 N CA) [id number] 04:58:00 Test Item Value Reference Range Interpretation Comments MAGNESIUM (test code = MAG) 1.9 MG/DL 1.8-2.4 N CBC W/AUTO [id number] 04:08:00 Test Item Value Reference Range Interpretation [...] 0.0-0.2 N NRBC#) - MRI BRAIN W/O [id number] 13:51:00 Patient Name: HEATHER HOPE Unit No: [id number] EXAMS: CPT CODE: [id number] MRI BRAIN W/O CONTRAST 03907 Reason: sz INDICATION: Seizure COMPARISON: CT brain, [...] MD Technologist: Andre Self MRI Trscrpt Dt/ (9084)tHELENDW6 Orig Print D/T: S: 09/17/2018 (5499) [facility] CntNAME: HEATHER HOPE NOVEMBER [address] PHYS: Fele[place] [address] : 1990 AGE: 27 SEX: F LOC: D.D313 1 PHONE #: [phone] EXAM DATE: 09/17/2018 STATUS: ADM IN FAX #: RAD NO: DC Dt: PAGE 1 Signed [id number] 07:25:00 Test Item Value Reference Range Interpretation Comments PROLACTIN (test code = 24.6 ng/mL 4.8-23.3 H Perfo rmed At: HD PROLAC) [facility] [address] [id number] Sb Man MD Ph:[phone] UA RFLX MICROSCOPIC [id number] 19:02:00 Test Item Value Reference Range Interpretation [...] UACULT) URINE SOURCE: Clean CatchUA RFLX MICROSCOPIC [id number] 18:56:00 Test Item Value Reference Range Interpretation [...] (test code = UACULT) URINE SOURCE: Clean [id number] 15:56:00 Test Item Value Reference Range Interpretation Comments CK (test code = CKT) 34 Units/L 26-192 N BASIC METABOLIC [id number] 12:57:00 Test Item Value Reference Range Interpretation [...] code = 8.6 MG/DL 8.7-10.5 L CA) [id number] 12:57:00 Test Item Value Reference Range Interpretation Comments CK (test code = CKT) 32 Units/L 26-192 N CBC W/AUTO [id number] 12:33:00 Test Item Value Reference Range Interpretation [...] 3/uL 0.0-0.2 N NRBC#) TOTAL IRON BINDING [id number] 05:50:00 Test Item Value Reference Range Interpretation Comments SERUM IRON (test code = IRON) 17 MCG/DL 50-170 L TOTAL IRON BINDING CAPACITY (test 363 MCG/DL 280-400 N code = TIBC) IRON SATURATION (test code = 5 % 15-50 L FESAT) [id number] 05:50:00 Test Item Value Reference Range Interpretation Comments FERRITIN (test code = LULI) 11 NG/ML 3-105 N HEPATIC FUNCTION [id number] 05:32:00 Test Item Value Reference Range Interpretation [...] code = ALKP) - CT HEAD/BRAIN W/O [id number] 20:19:00 Patient Name: HEATHER HOPE Unit No: [id number] EXAMS: CPT CODE: [id number] CT HEAD/BRAIN W/O CONT 91392 Reason: seizure TECHNIQUE: Contiguous 5 mm images [...] Print D/T: S: 09/14/2018 (2021) CTDI: DLP: [facility] NAME: HEATHER HOPE [address] [address] [facility] PHYS: NGA. Keanu Váz[place] [address] : 1990 AGE: 27 SEX: F LOC: D.NER PHONE#: [phone] EXAM DATE: 09/14/2018 STATUS: REG ER FAX #: RAD NO: DC Dt: PAGE 1 Signed Report- XR CHEST 1 [id number] 20:18:00 Patient Name: HEATHER HOPE Unit No: [id number] EXAMS: CPT CODE: [id number] XR CHEST 1 V 44299 Reason: screen for pneumonia FINDINGS: Single view ofthe chest shows normal heart size and pulmonary vasculature. The lungs are clear bilaterally. There is no focal infiltrate, pleural effusion or pneumothorax. IMPRESSION: No a cute cardiopulmonary findings at 2018 Reported and signed by: Lashell Jimenez MD CC: Keanu Vázquez MD; Cristiane Heath Technologist: Edel BURNS Trscrpt Dt/ (2017)tHELENDKW Orig PrintD/T: S: 09/14/2018 (2020) [facility] NAME: HEATHER HOPE [address] PHYS: NGA. - Keanu Váz[place] [address] : 1990 AGE: 27 SEX: F LOC: MATT PHONE #: [phone] EXAM DATE: STATUS: REG ER FAX #: RAD NO: DC Dt: PAGE 1 Signed ReportHCG SERUM [id number] 20:04:00 Test Item Value Reference Range Interpretation [...] using aquantitative h CG assay. BASIC METABOLIC [id number] 19:51:00 Test Item Value Reference Range Interpretation [...] 9.3 MG/DL 8.7-10.5 N CA) CBC W/AUTO [id number] 19:46:00 Test Item Value Reference Range Interpretation [...] BA#) 0.05 x10 3/uL 0.0-0.2 N BLOOD [id number] 10:00:00 Test Item Value Reference Range Interpretation Comments CULTURE (BEAKER) (test No growth in 5 days code = 1095) HCG, QUANTITATIVE, [id number] 15:37:00 Test Item Value Reference Range Interpretation Comments GONADOTROPIN, CHORIONIC (HCG) 29298 mIU/mL 0-10 H QUANT (BEAKER) (test code = 649) Non- Females: <10 mIU/mL Females: Gestation Age Reference Range(mIU/mL) 0.2-1 Week 5-50 1-2 Weeks 50-500 2-3 Weeks 100-5,000 3-4Weeks 500-10,000 4-5 Weeks 1,000-50,000 5-6 Weeks 10,000-100,000 6-8 Weeks 15,000-200,000 2-3 Months 10,000-100,000COMPREHENSIVE METABOLIC [id number] 15:10:00 Test Item Value Reference Range Interpretation [...] PATIEN TS. CBC W/PLT COUNT & AUTO [id number] 14:53:00 Test Item Value Reference Range Interpretation [...] (test code = 2801) U/S, , FIRST [id number] 07:52:00Reason for exam:-> Reason for exam:->please include [...] 1 day. An embryonic pole is evident. [place]-rump length measures 0.63 cm, correlating with estimated [...] Garrido Verified Date/Time: 05/17/2017 07:52:37 Reading Location: [facility] C013X Ortho Consult Reading Room PREGNANCY SCREEN, [id number] 05:28:00 Test Item Value Reference Range Interpretation Comments TEST URINE (BEAKER) (test Positive code = 583) MR, BRAIN, WITHOUT [id number] 18:54:00Reason for exam:->Stroke evaluationFINAL REPORT MRI brain [...] Parra Verified Date/Time: 05/15/2017 18:54:11 Reading Location: [facility] Radiology Reading Room EEG AWAKE AND [id number] 12:08:00Reason for exam:->? nonconvulsive statusDATE OF TEST: 05/15/2017DATE OF REPORT 05/15/2017 ACC: [id number] EE Start time: 1034 Stop time: 1054 ICD-10: R56.9CPT Code: 88933MONSJMR: 26 y/o woman with epilepsy found down [...] recordings.Marika Smith M.D.Neurophysiology FellowSwathi Harper M.D.Neurophysiology Attending [id number] 04:27:00 Test Item Value Reference Range Interpretation Comments PROCALCITONIN (BEAKER) (test code 0.17 ng/mL <0.05 H = 3036) SEPSIS RISK (ng/mL)Low: 0.05-0.50Intermediate: 0.51-2.00High: >=[id number] 03:15:00 Test Item Value Reference Range Interpretation Comments PHOSPHORUS (BEAKER) (test code = 3.1 mg/dL 2.3-4.7 604) [id number] 03:15:00 Test Item Value Reference Range Interpretation Comments MAGNESIUM (BEAKER) (test code = 1.9 mg/dL 1.6-2.6 627) BASIC METABOLIC [id number] 03:15:00 Test Item Value Reference Range Interpretation [...] code = 380) LACTIC ACID, VENOUS, WHOLE [id number] 03:09:00 Test Item Value Reference Range Interpretation Comments LACTATE BLOOD VENOUS (2) (BEAKER) 0.6 mmol/L 0.5-2.2 (test code = 2872) Effective 10/17/2015: Units/Reference Range ChangeNew: 0.5-2.2 mmol/L Previous: 5-20 mg/dLPROTHROMBIN TIME/[id number] 03:07:00 Test Item Value Reference Range Interpretation [...] = 2801) RAD, CHEST, 1 VIEW, NON [id number] 01:06:00Reason for exam:->possible infectionShould this be performed at the bedside?->YesFINAL REPORT History: Infection. Comparison: None. Findings: A single view of the chest is submitted. The cardiomediastinal contours are unremarkable. There is no focal consolidation, pneumothorax, large pleural effusion or evidence of overt pulmonary edema. There is no acute bony abnormality. Impression: No acute abnormality. Signed: Shabnam Zhu Verified Date/Time: 05/15/2017 01:06:06 Reading Location: [address] Reading Room
[2020-01-14] MEDS ORDERED: NA CHLORIDE 0.9% 1,000 ML ONE (20:20)
[2020-01-14 20:43] LABS: Absolute Lymphocytes (CBC) 2.1 K/uL (0.7-4.9); Basophils % 0.9 % (0-1.3); Hematocrit 37.7 % (36.0-45.0); Lymphocytes % 28.8 % (15.3-44.8); MPV 8.2 fL (7.6-11.3); RBC Red Blood Cell Count 4.37 M/uL (3.86-4.86)
[2020-01-14 21:32] LABS: Barbiturates NEGATIVE (NEGATIVE); Benzodiazepines NEGATIVE (NEGATIVE); Cocaine NEGATIVE (NEGATIVE); METHAMPHETAM NEGATIVE (NEGATIVE); Methadone NEGATIVE (NEGATIVE); Opiates NEGATIVE (NEGATIVE); Phencyclidine NEGATIVE (NEGATIVE); THC Cannibis NEGATIVE (NEGATIVE)
[2020-01-14 21:35] LABS: ALT/SGPT 24 U/L (12-78); AST/SGOT 21 U/L (15-37); Albumin 4.1 g/dL (3.4-5.0); Alkaline Phosphatase 78 U/L (45-117); BUN Blood Urea Nitrogen 8 mg/dL (7-18); Bicarbonate 23 mmol/L (21-32); Bilirubin Direct < 0.1 mg/dL (0-0.2); Bilirubin Total 0.3 mg/dL (0.2-1.0); Glucose Level 84 mg/dL (74-106); Potassium 3.7 mmol/L (3.5-5.1); Protein, Total 7.6 g/dL (6.4-8.2); Sodium Level 138 mmol/L (136-145)
[2020-01-14 21:56] LABS: Urine Blood NEGATIVE (NEG); Urine Glucose NEGATIVE (NEG); Urine Protein NEGATIVE (NEG); Urine pH 5.5 (5.0-7.0)
[2020-01-14] MEDS ORDERED: levETIRAcetam 500 MG TAB ONE (22:17)
--- NOTE | 2020-01-14 22:50 | EDPHYS ---
Physician Documentation [facility] Name: Heather Hope Age: 29 yrs Sex: Female : 1990 Arrival Date: 01/14/2020 Time: 20:04 Bed 27 Private MD: ED Physician Rambo Beck HPI: 01/13 20:10 This 29 yrs old Female presents to ER via EMS with complaints of Probable cp Seizure. 20:10 The patient presents after having a single isolated seizure, that lasted an unknown cp period of time. 20:10 Character of seizure(s): Loss of consciousness: the patient experienced loss of cp consciousness, brief, Motor activity: the motor activity is unknown, Incontinence: none. Seizure onset: just prior to arrival. Context: the seizure(s) was witnessed, by co-worker(s), occurred at work, Contributing factors: unknown, the patient is post-ictal. Seizure Hx: Seizure medications: Keppra. Associated injury: The patient did not suffer any apparent associated injury. EMS care: IV fluids. Current symptoms: decreased level of consciousness, patient arousable to painful stimuli. Historical: - Allergies: 20:07 No Known Allergies; - Home Meds: 20:07 Keppra 750 mg Oral tab 2 tabs 2 times per day [Active]; - PMHx: 20:07 Anemia; Seizures; - PSHx: 20:07 Unable to obtain; - Immunization history:: Adult Immunizations up to date. - Social history:: Smoking status: Patient denies any tobacco usage or history of. ROS: 20:15 Constitutional: Negative for body aches, chills, fever, poor PO intake. cp 20:15 Eyes: Negative for injury, pain, redness, and discharge. cp 20:15 ENT: Negative for ear pain, sore throat, difficulty swallowing, difficulty handling secretions. 20:15 Cardiovascular: Negative for chest pain, palpitations. 20:15 Respiratory: Negative for cough, shortness of breath, wheezing. 20:15 Abdomen/GI: Negative for abdominal pain, nausea, vomiting, and diarrhea. 20:15 Neuro: Positive for history of seizure, Negative for headache. 20:15 All other systems are negative. Exam: 20:20 Head/Face: Normocephalic, atraumatic. cp 20:20 Constitutional: The patient appears in no acute distress, non-diaphoretic, non-toxic, well developed, well nourished. 20:20 Eyes: Periorbital structures: appear normal, Pupils: equal, round, and reactive to cp light and accomodation, Conjunctiva: normal, no exudate, no injection, Sclera: no appreciated abnormality, Lids and lashes: appear normal, bilaterally. 20:20 ENT: External ear(s): are unremarkable, Ear canal(s): are normal, clear, TM's: dullness, bilaterally, Nose: is normal, Mouth: Lips: moist, Oral mucosa: moist, Posterior pharynx: Airway: no evidence of obstruction, patent. 20:20 Neck: C-spine: vertebral tenderness, is not appreciated, crepitus, is not appreciated. 20:20 Chest/axilla: Inspection: normal, Palpation: is normal, no crepitus, no tenderness. 20:20 Cardiovascular: Rate: normal, Rhythm: regular. 20:20 Respiratory: the patient does not display signs of respiratory distress, Respirations: normal, no use of accessory muscles, no retractions, labored breathing, is not present, Breath sounds: are clear throughout, no decreased breath sounds, no stridor, no wheezing. 20:20 Abdomen/GI: Inspection: abdomen appears normal, Bowel sounds: active, all quadrants, Palpation: abdomen is soft and non-tender, in all quadrants. 20:20 Skin: no rash present. 20:20 Neuro: Mentation: responsive to pain. 20:45 ECG was reviewed by the Attending Physician. cp Vital Signs: 20:04 BP 123 / 85; Pulse 82; Resp 16; Temp 98.5; Pulse Ox 100% ; ah 21:00 BP 118 / 88; Pulse 91; Resp 16; Pulse Ox 100% on R/A; Pain 0/10; jb4 22:00 BP 122 / 81; Pulse 89; Resp 16; Pulse Ox 99% on R/A; jb4 23:00 BP 113 / 68; Pulse 86; Resp 16; Pulse Ox 100% on R/A; jb4 MDM: 20:05 Patient medically screened. cp 20:30 Differential diagnosis: drug overdose, cardiac arrhythmia, seizure. cp 22:48 Data reviewed: vital signs, nurses notes, lab test result(s), EKG, and as a result, I cp will discharge patient. 22:48 Test interpretation: by ED physician or midlevel provider: ECG. Counseling: I had a cp detailed discussion with the patient and/or guardian regarding: the historical points, exam findings, and any diagnostic results supporting the discharge/admit diagnosis, lab results, radiology results, to return to the emergency department if symptoms worsen or persist or if there are any questions or concerns that arise at home. Response to treatment: the patient's symptoms have markedly improved after treatment, Patient sleeping in exam room but easily arousable. Patient alert times 3 upon questioning. Appears non-toxic and in no distress. Will discharge to home for continued monitoring. 01/13 20:05 Order name: Acetaminophen; Complete Time: 22:20 cp 01/13 22:21 Interpretation: Reviewed. cp 01/13 20:05 Order name: Basic Metabolic Panel; Complete Time: 22:20 cp 01/13 22:20 Interpretation: Normal except: CL 109. cp 01/13 20:05 Order name: CBC with Diff; Complete Time: 21:02 cp 01/13 20:05 Order name: ETOH Level; Complete Time: 22:20 cp 01/13 20:05 Order name: Hepatic Function; Complete Time: 22:20 cp 01/13 22:21 Interpretation: Reviewed. cp 01/13 20:05 Order name: PT-INR; Complete Time: 23:22 cp 01/13 23:23 Interpretation: Reviewed. cp 01/13 20:05 Order name: Ptt, Activated; Complete Time: 23:22 cp 01/13 23:23 Interpretation: Reviewed. cp 01/13 20:05 Order name: Salicylate; Complete Time: 22:20 cp 01/13 22:20 Interpretation: Reviewed. cp 01/13 20:05 Order name: Urine Drug Screen; Complete Time: 22:20 cp 01/13 22:21 Interpretation: Reviewed. cp 01/13 20:05 Order name: EKG; Complete Time: 20:06 cp 01/13 21:12 Order name: Urine --Ancillary (enter results); Complete Time: 22:20 tt3 01/13 21:12 Order name: Urine Dipstick--Ancillary (enter results); Complete Time: 22:20 tt3 01/13 20:05 Order name: Urine Test (obtain specimen); Complete Time: 21:12 cp 01/13 20:05 Order name: EKG - Nurse/Tech; Complete Time: 20:47 cp 01/13 20:05 Order name: IV Saline Lock; Complete Time: 20:47 cp 01/13 20:05 Order name: Labs collected and sent; Complete Time: 20:47 cp 01/13 20:05 Order name: Urine Dipstick-Ancillary (obtain specimen); Complete Time: 21:12 cp EC:45 Rate is 72 beats/min. Rhythm is regular. IN interval is normal. QRS interval is normal. cp QT interval is normal. T waves are Inverted in leads III, aVR, V2. Interpreted by me. Reviewed by me. Administered Medications: 20:35 Drug: NS 0.9% 1000 ml {Note: Administered by CLAUDIA Doran.} Route: IV; Rate: 1 bolus; Site: [facility] right hand; 22:16 Follow up: Response: No adverse reaction; IV Status: Completed infusion; IV Intake: [facility] 1000ml 22:11 Drug: Keppra 500 mg Route: PO; [facility] 23:00 Follow up: Response: No adverse reaction [facility] Disposition: 01/14/20 22:49 Discharged to Home. Impression: Epilepsy and recurrent seizures. - Condition is Stable. - Discharge Instructions: Seizure, Adult. - Prescriptions for Keppra 500 mg Oral Tablet - take 1 tablet by ORAL route every 12 hours; 20 tablet. - Medication Reconciliation Form, Thank You Letter, Antibiotic Education, Prescription Opioid Use form. - Follow up: Private Physician; When: 1 - 2 days; Reason: Recheck today's complaints. - Problem is an ongoing problem. - Symptoms have improved. Signatures: Dispatcher [employer] EDNE Steve Arreaga PA PA cp Bryson, James RN RN [facility] Andreea Edwards RN RN Corrections: (The following items were deleted from the chart) 23:40 22:49 01/14/2020 22:49 Discharged to Home. Impression: Epilepsy and recurrent seizures. jb Condition is Stable. Forms are Medication Reconciliation Form, Thank You Letter, Antibiotic Education, Prescription Opioid Use. Follow up: Private Physician; When: 1 - 2 days; Reason: Recheck today's complaints. Problem is an ongoing problem. Symptoms have improved. cp
--- NOTE | 2020-01-14 22:50 | ER ---
Nurse's [facility] Name: Heather Hope Age: 29 yrs Sex: Female : 1990 Arrival Date: 01/14/2020 Time: 20:04 Bed 27 Private MD: Diagnosis: Epilepsy and recurrent seizures Presentation: 01/13 20:04 Chief complaint: EMS states: she stared off into space while working and co-workers assisted her to the floor. Pt has hx of seizures. Vitals per EMS 135/90, 83, 109, 97%, 98.2. Ebola Screen: No symptoms or risks identified at this time. Initial Sepsis Screen: Does the patient meet any 2 criteria? No. Patient's initial sepsis screen is negative. Does the patient have a suspected source of infection? No. Patient's initial sepsis screen is negative. Risk Assessment: Do you want to hurt yourself or someone else? Patient reports no desire to harm self or others. Onset of symptoms was January 14, 2020. 20:04 Method Of Arrival: EMS: [facility] 20:04 Acuity: DARLYN 3 21:14 Coronavirus screen: Client denies travel out of the [place] in the last 14 days. At this time, the client does not indicate any symptoms associated with coronavirus-19. Historical: - Allergies: 20:07 No Known Allergies; - Home Meds: 20:07 Keppra 750 mg Oral tab 2 tabs 2 times per day [Active]; - PMHx: 20:07 Anemia; Seizures; - PSHx: 20:07 Unable to obtain; - Immunization history:: Adult Immunizations up to date. - Social history:: Smoking status: Patient denies any tobacco usage or history of. Screenin:14 Abuse screen: Denies threats or abuse. Nutritional screening: No deficits noted. Tuberculosis screening: No symptoms or risk factors identified. Fall Risk None identified. Assessment: 20:45 General: Appears in no apparent distress. comfortable, Behavior is calm, cooperative, jb4 appropriate for age. Pain: Denies pain. Neuro: Level of Consciousness is awake, alert, obeys commands, Oriented to person, place, time, situation. Cardiovascular: Patient's skin is warm and dry. Respiratory: Airway is patent Respiratory effort is even, unlabored, Respiratory pattern is regular, symmetrical. GI: No signs and/or symptoms were reported involving the gastrointestinal system. : No signs and/or symptoms were reported regarding the genitourinary system. EENT: No signs and/or symptoms were reported regarding the EENT system. Derm: Skin is intact, Skin is pink, warm \T\ dry. Musculoskeletal: Circulation, motion, and sensation intact. Range of motion: intact in all extremities. 21:00 Reassessment: assisted pt to restroom via WC and back to bed. Pt tolerated well. Pt ah alert and oriented at this time but unaware how long she has been in the ER. Warm blanket given. No other needs voiced. 22:00 Reassessment: Patient appears in no apparent distress at this time. Patient and/or jb4 family updated on plan of care and expected duration. Pain level reassessed. Patient is alert, oriented x 3, equal unlabored respirations, skin warm/dry/pink. 23:15 Reassessment: Patient appears in no apparent distress at this time. Patient and/or jb4 family updated on plan of care and expected duration. Pain level reassessed. Patient is alert, oriented x 3, equal unlabored respirations, skin warm/dry/pink. PT verbalized understanding of d/c and follow up instructions, denies questions or concerns. Is currently on the phone contacting her ride home. Vital Signs: 20:04 BP 123 / 85; Pulse 82; Resp 16; Temp 98.5; Pulse Ox 100% ; ah 21:00 BP 118 / 88; Pulse 91; Resp 16; Pulse Ox 100% on R/A; Pain 0/10; jb4 22:00 BP 122 / 81; Pulse 89; Resp 16; Pulse Ox 99% on R/A; jb4 23:00 BP 113 / 68; Pulse 86; Resp 16; Pulse Ox 100% on R/A; jb4 ED Course: 20:04 Patient arrived in ED. ah 20:04 Steve Arreaga PA is PHCP. cp 20:04 Rambo Beck MD is Attending Physician. cp 20:07 Triage completed. ah 20:33 Inserted saline lock: 22 gauge in right hand, using aseptic technique. Blood collected. rr5 20:40 Don Ag RN is Primary Nurse. jb4 21:15 Patient has correct armband on for positive identification. Bed in low position. Call light in reach. Side rails up X2. Seizure precautions initiated. 23:17 No provider procedures requiring assistance completed. IV discontinued, intact, jb4 bleeding controlled, No redness/swelling at site. Pressure dressing applied. Administered Medications: 20:35 Drug: NS 0.9% 1000 ml {Note: Administered by CLAUDIA Doran.} Route: IV; Rate: 1 bolus; Site: jb4 right hand; 22:16 Follow up: Response: No adverse reaction; IV Status: Completed infusion; IV Intake: jb4 1000ml 22:11 Drug: Keppra 500 mg Route: PO; jb4 23:00 Follow up: Response: No adverse reaction jb4 Intake: 22:16 IV: 1000ml; Total: 1000ml. jb4 Outcome: 22:49 Discharge ordered by . familia 23:17 Discharged to home ambulatory, with family. jb4 23:17 Condition: stable 23:17 Discharge instructions given to patient, Instructed on discharge instructions, follow up and referral plans. medication usage, Demonstrated understanding of instructions, follow-up care, medications, Prescriptions given X 1. 23:40 Patient left the ED. jb4 Signatures: Steve Arreaga PA PA cp Bryson, James RN RN jb4 Chicho Colunga, RN RN rr5 Andreea Edwards, RN RN
[2020-01-14 23:04] LABS: Protime INR 1.02
[2020-01-14 23:46] VITALS: TEMP 98.5
[2020-01-14 23:50] VITALS: BP 113/68; O2SAT 100
== END 2020-01-14 23:40 | disposition home or self-care (01) ==
LOC: ER 20:00
DX: G40.802 Other epilepsy, not intractable, without status epilepticus (principal)
CPT/HCPCS: 96361; 93005; 85025; 80048; 36415; 80320; 80329 ×2; 81025; 85610; 80076; 80307 ×8; 85730; 81003; 96360; 99284; J7030

== ENCOUNTER 2020-01-20 19:07 | Emergency (ER) | payer OTHER ==
--- OUTSIDE RECORDS SUMMARY | 2020-01-20 19:11 | XMS REPORT | Clinical Summary ---
:1990 Author Organization [facility] Address [address] [place] [address] Care Team Providers Name Role Phone Asked, [...] Encounters Date Type Specialty Care Team Description 01/18/2020 Travel 11/24/2019 Telephone Neurology Richard Henley MD 11/17/2019 Patient Outreach Quality Nola Sevilla RN 11/16/2019 Patient Outreach Quality Nola Sevilla RN 11/12/2019 - Hospital Encounter General Internal Shari Bailey ([facility]) 11/15/2019 Medicine MD Adolfo (Primary Dx) Caesar Maxwell MD Adenwala, Yusuf Ebrahim, MD 10/31/2019 Travel 10/24/2019 Travel after 01/19/2019 Social History Tobacco Use Types Packs/Day Years [...] been in contact with No / Unsure 01/18/2020 3:42 PM CDT someone who was confirmed or suspected to have Coronavirus / COVID-19? Last Filed Vital Signs Vital Sign Reading [...] 11/12/2019 8:45 PM CDT Plan of Treatment Date Type Specialty Care Team Description 01/25/2020 Telemedicine Neurology Richard Henley MD [address] [facility] [address] [place], [place] [address] [phone] Health Maintenance Due Date Last Done Comments [...] are i n the results section. after 01/19/2019 Results Continuous EEG monitoring (11/15/2019 9:41 AM [...] time period is included. Manual differential PERFORMED [facility] Neutrophils 51.0 39.0 - 69.0 % [facility] Lymphocytes 34.0 25.0 - 45.0 % [facility] Monocytes 13.0 (H) 0.0 - 10.0 % [facility] Eosinophils 2.0 0.0 - 5.0 % [facility] Basophils 0.0 0.0 - 1.0 % [facility] Metamyelocytes 0 % [facility] Promyelocytes 0 % [facility] Platelet slide review Sana adequate [facility] Anisocytosis Moderate [facility] Ovalocytes Moderate [facility] Enlarged platelets Moderate (A) [facility] Specimen Performing Organization Address City/[facility]/Zipcode Phone Number [facility] DEPARTMENT OF PATHOLOGY AND [address] [place] [address] [phone] [address] CBC with platelet and differential (11/15/2019 4:30 AM CDT)Only the most recent of3 resultswithin the time period is included. Pathologist Sig nature WBC 7.99 4.50 - 11.00 k/uL [facility] RBC 4.06 (L) 4.20 - 5.50 m/uL [facility] HGB 10.8 (L) 12.0 - 16.0 g/dL [facility] HCT 34.1 (L) 37.0 - 47.0 % [facility] MCV 84.0 82.0 - 100.0 fL [facility] MCH 26.6 (L) 27.0 - 34.0 pg [facility] MCHC 31.7 31.0 - 37.0 g/dL [facility] RDW - SD 48.1 37.0 - 55.0 fL [facility] MPV 10.2 8.8 - 13.2 fL [facility] Platelet count 251 150 - 400 k/uL [facility] Nucleated RBC 0.00 /100 WBC [facility] Neutrophils 51.0 39.0 - 69.0 % [facility] Lymphocytes 34.0 25.0 - 45.0 % [facility] Monocytes 13.0 (H) 0.0 - 10.0 % [facility] Eosinophils 2.0 0.0 - 5.0 % [facility] Basophils 0.0 0.0 - 1.0 % [facility] Specimen Blood Performing Organization Address City/State/Zipcode Phone Number [facility] DEPARTMENT OF PATHOLOGY AND [address] [place], [place] [address] [address] Estimated GFR (11/15/2019 4:00 AM CDT)Only the most recent of3 resultswithin the time period is included. Estimated GFR >=90 mL/min/1.73 [facility] Comment: m2 HOSPITAL Catergory Units Interpretation G1 [...] published in 2014. Specimen Performing Organization Address City/[facility] Phone Number [facility] DEPARTMENT OF PATHOLOGY AND [address] [place], [place] [phone] Basic metabolic panel (11/15/2019 4:00 AM CDT)Only the most recent of2 results within the time period is included. Pathologist Sig nature Sodium 135 135 - 148 mEq/L [facility] Potassium 3.4 (L) 3.5 - 5.0 mEq/L [facility] Chloride 103 98 - 112 mEq/L [facility] CO2 21 (L) 24 - 31 mEq/L [facility] Anion gap 11@ANIO 7 - 15 mEq/L [facility] BUN 9 6 - 20 mg/dL [facility] Creatinine 0.48 (L) 0.50 - 0.90 mg/dL [facility] Glucose 95 65 - 99 mg/dL [facility] Calcium 9.2 8.3 - 10.2 mg/dL [facility] Specimen Blood Performing Organization Address City/[facility] Phone Number [facility] DEPARTMENT OF PATHOLOGY AND [address] [place], [place] [phone] Continuous EEG monitoring (11/15/2019 1:22 AM CDT) [...] level 20 (L) 37 - 145 ug/dL [facility] Iron binding capacity 335 200 - 400 ug/dL [facility] % Saturation 6.0 (L) 15.0 - 38.0 % [facility] Specimen Blood Performing Organization Address City/[facility] Phone Number [facility] DEPARTMENT OF PATHOLOGY AND [address] [place] [address] [phone] [address] Ferritin level (11/13/2019 4:00 AM CDT) Pathologist Sig nature Ferritin level <13 (A) 13 - 150 ng/mL [facility] Specimen Blood Performing Organization Address City/[facility]/Zipcode Phone Number [facility] DEPARTMENT OF PATHOLOGY AND [address] [place] [address] [phone] [address] MRI Brain W Wo Contrast (11/13/2019 2:16 [...] or cuco-ictal hyperperfusion to localize seizure focus. [facility]-[id number] Procedure Note Interface, Radiology Results Incoming - 11/13/2019 6:14 AM [...] or cuco-ictal hyperperfusion to localize seizure focus. [facility]-[id number] Performing Organization Address [facility]/Zipcode Phone Number [facility] [address] [place] [address] ECG 12 lead (11/12/2019 9:10 PM CDT) Pathologist Sig nature Ventricular rate 81 [facility] Atrial rate 81 [facility] HI interval 164 [facility] QRSD interval 84 [facility] QT interval 386 [facility] QTC interval 448 [facility] MUSE P axis 1 52 [facility] MUSE QRS axis 1 4 [facility] MUSE T wave axis 13 [facility] MUSE EKG impression Normal sinus [facility] MUSE rhythm-Normal ECG-No previous ECGs available-Electronicall y Signed By Adrian Ibarra MD ([id number]) on 11/13/2019 8:07:25 PM Specimen Narrative Performed At This result has an attachment that is no t available. Performing Organization Address [facility] Phone Number [facility] MUSE [address] [place] [address] Syphilis total antibody (11/12/2019 7:40 PM CDT) Syphilis total Non-reactiveComment Non-reactive [facility] antibody : No serological HOSPITAL evidence of syphilis infection. Specimen Serum Performing Organization Address [facility]/Zipcode Phone Number [facility] DEPARTMENT OF PATHOLOGY AND [address] [place] [address] [phone] [address] HIV Ag/Ab combination (11/12/2019 7:40 PM CDT) HIV Ag/Ab combination Non-reactive Non-reactive [facility] Specimen Blood Performing Organization Address [facility]/Zipcode Phone Number [facility] DEPARTMENT OF PATHOLOGY AND [address] [place] [address] [phone] [address] Homocystine, plasma (11/12/2019 7:40 PM CDT) Homocysteine 10.3 0.0 - 15.0 [facility] Comment: umol/L [facility] The risk for coronary vascular disease increases progr essively with homocysteine concentration. A 3.4 times greater risk is associated with a homocysteine concentration of greate r than 15.8 umol/L as compared to a concentration below 14.1 umol/L. Specimen Blood Performing Organization Address [facility] Phone Number [facility] DEPARTMENT OF PATHOLOGY AND [address] [place] [address] [phone] [address] MARCELINO titer (11/12/2019 7:40 PM CDT) Pathologist Sig nature MARCELINO titer 1:160 (A) Not-Detected [facility] MARCELINO pattern Homogeneous (A) Not-Detected [facility] Specimen Blood Performing Organization Address [facility] Phone Number [facility] DEPARTMENT OF PATHOLOGY AND [address] [place] [address] [phone] [address] Vitamin D 25 hydroxy level (11/12/2019 7:40 PM CDT) Vitamin D, 13.6 (L) 30.0 - 150.0 [facility] 25-hydroxy Comment: ng/mL HOSPITAL This assay reports [...] alternative methods. Specimen Blood Performing Organization Address City/[facility]/Zipcode Phone Number [facility] DEPARTMENT OF PATHOLOGY AND [address] [place] [address] [phone] [address] Prolactin level (11/12/2019 7:40 PM CDT) Pathologist Sig [facility] Prolactin 22 5 - 23 ng/mL [facility] Specimen Performing Organization Address City/[facility]/Zipcode Phone Number [facility] DEPARTMENT OF PATHOLOGY AND [address] [place] [address] [phone] [address] Sedimentation rate (11/12/2019 7:40 PM CDT) Pathologist [facility] Sedimentation rate 9 0 - 20 mm/hr [facility] Specimen Blood Performing Organization Address City/[facility] Phone Number [facility] DEPARTMENT OF PATHOLOGY AND [address] [place] [address] [place] [address] Rheumatoid factor (11/12/2019 7:40 PM CDT) Pathologist [facility] Rheumatoid factor <10 0 - 13 IU/mL [facility] Specimen Blood Performing Organization Address [facility] Phone Number [facility] DEPARTMENT OF PATHOLOGY AND [address] [place] [address] [phone] [address] C-reactive protein (11/12/2019 7:40 PM CDT) Pathologist [facility] CRP <0.30 0.00 - 0.50 mg/dL [facility] Specimen Blood Performing Organization Address City/[facility] Phone Number [facility] DEPARTMENT OF PATHOLOGY AND [address] [place] [address] [place] [address] MARCELINO (11/12/2019 7:40 PM CDT) MARCELINO screen Positive (A) Negative [facility] Comment: HOSPITAL Test performed using [employer] DAPI MARCELINO kit (Indirect Immunofluorescence Assay) for Anti-Nuclear Antibody on [employer] 160 Analyzer. Specimen Blood Performing Organization Address City/[facility] Phone Number [facility] DEPARTMENT OF PATHOLOGY AND [address] [place] [address] [place] [address] Thyroid stimulating hormone (11/12/2019 7:40 PM CDT) Pathologist [facility] TSH 2.21 0.27 - 4.20 uIU/mL [facility] ITAL Specimen Blood Performing Organization Address [facility] Phone Number [facility] DEPARTMENT OF PATHOLOGY AND [address] [place] [address] [phone] [address] T4, free (11/12/2019 7:40 PM CDT) Pathologist [facility] T4, free 1.2 0.9 - 1.7 ng/dL [facility] Specimen Blood Performing Organization Address [facility] Phone Number [facility] DEPARTMENT OF PATHOLOGY AND [address] [place] [address] [place] [address] Folate level (11/12/2019 7:40 PM CDT) Pathologist [facility] Folate 9.3 4.8 - 24.2 ng/mL [facility] Specimen Serum Performing Organization Address [facility] Phone Number [facility] DEPARTMENT OF PATHOLOGY AND [address] [place] [address] [phone] [address] Vitamin B12 level (11/12/2019 7:40 PM CDT) Pathologist [facility] Vitamin B12 [phone] [facility] Comment: pg/mL HOSPITAL Significant overlap exists between normal and deficien cy states. However, most patients with deficiencies will have Ser um B12 <200 pg/mL. Specimen Serum Performing Organization Address [facility] Phone Number [facility] DEPARTMENT OF PATHOLOGY AND [address] [place] [address] [place] [address] Creatine kinase, total (CPK) (11/12/2019 7:40 PM CDT) Pathologist [facility] Creatine kinase 56 26 - 192 U/L [facility] Specimen Performing Organization Address City/[facility] Phone Number [facility] DEPARTMENT OF PATHOLOGY AND [address] [place] [address] [phone] [address] Cortisol level, random (11/12/2019 7:40 PM CDT) Cortisol, random 2 ug/dL [facility] Comment: HOSPITAL Reference Ranges are not established for non-timed Cor tisol levels. Reference Range for Timed Cortisol: 6 - 10 AM 6 - 18 ug/d l 4 - 8 PM 3 - 11 ug/ dl Specimen Blood Performing Organization Address City/State/Zipcode Phone Number [facility] DEPARTMENT OF PATHOLOGY AND [address] [place], [place] [address] GENOMIC MEDICINE [facility] [address] [place] [address] CT Cervical Spine Wo Contrast (11/12/2019 6:12 [...] subluxation identif ied in the cervical spine. [facility]-[id number] Procedure Note Interface, Radiology Results Incoming - [...] subluxation identif ied in the cervical spine. [facility]-[id number] Performing Organization Address [facility]/Zipcode Phone Number [facility] [address] [place] [address] CT Maxillofacial Wo Contrast (11/12/2019 6:09 PM [...] unre markable. The paranasal sinuses are clear. [facility]-[id number] Procedure Note Hm Interface, Radiology Results Incoming - 11/12/2019 6:18 [...] unre markable. The paranasal sinuses are clear. [facility]-[id number] Performing Organization Address [facility]/Zipcode Phone Number [facility] [address] [place] [address] CT Head Wo Contrast (11/12/2019 6:09 PM CDT) Specimen Narrative Performed At EXAMINATION: CT HEAD WO CONTRAST [facility] CLINICAL HISTORY: Seizure new nontra umatic [...] IMPRESSION: No acute intracranial abnormality identi fied. [facility]-[id number] Procedure Note Interface, Radiology Results Incoming - [...] IMPRESSION: No acute intracranial abnormality identi fied. [facility]-[id number] Performing Organization Address City/State/Zipcode Phone Number [facility] [address] [place] [address] XR Chest 1 Vw Portable (11/12/2019 5:35 [...] There is no acute cardiopulmonary dis ease. [id number] Procedure Note Interface, Radiology Results Incoming - [...] There is no acute cardiopulmonary dis ease. [id number] Performing Organization Address City/[facility]/Zipcode Phone Number [facility] [address] [place] [address] Keppra (Levetiracetam) level (11/12/2019 5:04 PM CDT) Levetiracetam 30 12 - 46 ug/mL [facility] Comment: INTERPRETIVE INFORMATION: Keppra (Levetiracetam) Therapeutic Range: 12-46 ug/mL Toxic: Not well Established Pharmacokinetics of levetiracetam are affected by lamberto l function. Adverse effects may include somnolence, weakness, head ache and vomiting. This levetiracetam (Keppra) immunoassay uses the [employer] Sient[employer] reagents, which has known cross-reactivity with the dr norma brownivaracetam (Briviact) and may report inaccurate resu lts. Patients transitioning from levetiracetam to brivarace goldstein or those who are using both medications should not monitor drug concentrations with the [employer] assay. These p atients should be monitored using a validated chromatographic methodology that distinguishes between drugs to determine drug con centrations. Performed by [facility], [address] [place] [id number] [email or web address], Josué Barreto MD, Lab. Director Specimen Serum Performing Organization Address [facility] Phone Number [facility] [address] [place] [address] [facility] [address] [place] [address] Alcohol level, blood (11/12/2019 5:04 PM CDT) Alcohol None Detected mg/dL [facility] Comment: HOSPITAL Normal None Detected Legal Intoxication in [place] 80 mg/dL (0.08%) - Whole Blood Toxic Concentration 200 mg/dL (0.2%) Potentially Fatal 350 - 500 mg/dL (0. 35 - 0.5%) Alcohol percent None Detected % [facility] Specimen Blood Performing Organization Address [facility]/Zipcode Phone Number [facility] DEPARTMENT OF PATHOLOGY AND [address] [place] [phone] GENOMIC MEDICINE [address] [place] [address] Comprehensive metabolic panel (11/12/2019 5:04 PM CDT) Sodium 142 135 - 148 [facility] mEq/L [facility] Potassium 3.7 3.5 - 5.0 [facility] mEq/L [facility] Chloride 106 98 - 112 [facility] mEq/L [facility] CO2 22 (L) 24 - 31 mEq/L [facility] Anion gap 14@ANIO 7 - 15 mEq/L [facility] BUN 4 (L) 6 - 20 mg/dL [facility] Creatinine 0.60 0.50 - 0.90 [facility] mg/dL [facility] Glucose 98 65 - 99 mg/dL [facility] Calcium 9.4 8.3 - 10.2 [facility] mg/dL [facility] Protein 7.2 6.3 - 8.3 [facility] Comment: g/dL HOSPITAL - Alligator 4.6-7.0 g/dL 1 week 4.4-7.6 g/dL 7 months-1year 5.1-7.3 g/dL 1-2 years 5.6-7.5 g/dL >3 years 6.0-8.0 g/dL 18-150 6.3-8.3 g/dL Albumin 3.7 3.5 - 5.0 [facility] g/dL HOSPITAL A/G ratio 1.1 0.7 - 3.8 [facility] Alkaline phosphatase 79 35 - 104 U/L [facility] AST 29 10 - 35 U/L [facility] ALT 39 5 - 50 U/L [facility] Total bilirubin <0.2 0.0 - 1.2 [facility] mg/dL HOSPITAL Specimen Blood Performing Organization Address City/State/Zipcode Phone Number [facility] DEPARTMENT OF PATHOLOGY AND [address] [place] [address] GENOMIC MEDICINE [address] [address] Urinalysis screen and microscopy, with reflex to culture (11/12/2019 2:44 PM CDT) Specimen site Clean catch [facility] Color, UA Straw [facility] Appearance, UA Hazy [facility] Specific gravity, UA 1.020 1.001 - 1.035 [facility] pH, UA 8.0 5.0 - 8.5 [facility] Protein, UA Negative Negative [facility] Glucose, UA Negative Negative [facility] Ketones, UA Negative Negative [facility] Bilirubin, UA Negative Negative [facility] Blood, UA Negative Negative [facility] Nitrite, UA Negative Negative [facility] Urobilinogen, UA <2.0 <2.0 [facility] Leukocyte esterase, Negative Negative [facility] Epithelial cells, UA 6 /HPF [facility] WBC, UA <1 0 - 4 /HPF [facility] RBC, UA None seen 0 - 5 /HPF [facility] Bacteria, UA Few None seen [facility] Yeast, UA None seen [facility] Yeast with None seen [facility] pseudohyphae, HOSPITAL Specimen Urine Performing Organization Address City/[facility] Phone Number [facility] DEPARTMENT OF PATHOLOGY AND [address] [place] [address] [phone] [address] hCG qualitative, urine screen (11/12/2019 2:44 PM CDT) Pathologist [facility] hCG qualitative, NegativeComment: [facility] urine Sensitivity of [facility] test: 25 mIU/mL Specimen Urine Performing Organization Address City/[facility] Phone Number [facility] DEPARTMENT OF PATHOLOGY AND [address] [place] [address] [phone] [address] Urine drugs of abuse screen (11/12/2019 2:44 PM CDT) Pathologist [facility] Amphetamine screen, Negative [facility] Barbiturate screen, Negative [facility] Benzodiazepine Negative [facility] screen, urine [facility] Cocaine screen, urine Negative [facility] Methadone metabolite Negative [facility] (EDDP), urine [facility] Opiates screen, urine Negative [facility] Oxycodone screen, Negative [facility] urine [facility] Phencyclidine screen, Negative [facility] Tricyclic screen, Negative [facility] Cannabinoid screen, Negative [facility] urine Comment: JUDAISM Drug screen minimum concentration of detectability HOSPITAL [...] requir ed. Specimen Urine Performing Organization Address City/State/Zipcode Phone Number [facility] DEPARTMENT OF PATHOLOGY AND [address] [place] [address] [facility] [address] [place] [address] Urine culture (11/12/2019 2:44 PM CDT) Pathologist Sig nature Urine culture SEE COMMENTComment: [facility] Bacteriuria screen HOSPITAL negative. 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
--- OUTSIDE RECORDS SUMMARY | 2020-01-20 19:11 | XMS REPORT | Clinical Summary ---
:1990 Author Organization [facility] Address [address] [place] [address] Care Team Providers Name Role Phone Unavailable Primary Care Provider Unavailable Allergies No Known Allergies Medications Medication Sig Dispensed Refills Start Date End Date Status levETIRAcetam (KEPPRA) Take 1 tablet 60 tablet 2 05/19/2017 Active 1000 MG tablet (1,000 mg total) by mouth 2 (two) times daily. vitamin Take 1 tablet by 90 tablet 3 05/20/2017 Active w/jdxzmfi-drht-ycizxx mouth daily. ( PLUS) 27 mg iron- [...] Not on file Results Not on fileafter 01/19/2019 Insurance Payer Benefit Plan / Group Subscriber ID Type Phone A [facility] MEDICAID [place] xxxxxxxxx Medicaid [id number] Advance Directives For more information, please contact: [employer] ke'[facility] HospitalVtazjs[address] [place], [place] [phone] Code Status Date Activated Date Inactivated Comments Full Code 05/14/2017 10:10 PM 05/19/2017 2:55 PM This code status was determined by: Patient
--- OUTSIDE RECORDS SUMMARY | 2020-01-20 19:16 | XMS REPORT | Continuity of Care Document ---
:1990 Author Organization [facility] t Address [address] [place] [place] [address] Care Team Providers Name Role Phone Asked, Pcp Primary Care Physician Unavailable Jung TAYLOR, A Attending Clinician Unavailable Maximino Palomino Attending Clinician Doctor Unassigned, Name Attending Clinician Unavailable Adrianne Hansen Attending Clinician Rita SABA Attending Clinician Lory MENDOZA Attending Clinician Di TAYLOR Attending Clinician Unavailable Adolfo Bailey MD Attending Clinician Alissa MENDOZA Attending Clinician Liana MENDOZA, Susi Attending Clinician Aleksandar MENDOZA Attending Clinician Magda Adam MD Attending Clinician BRANDO RODAS Attending Clinician Unavailable ALISSA Admitting Clinician Unavailable Juliano DEJESUS Admitting Clinician Unavailable Payers Payer Name Policy Type Policy Number Effective Date Expiration Date Moses basurto CIGNACIGNA OPEN xxxxxxxxxxx 2019 [place] ACCESS/NETWORKxx 00:00:00 Methodis t 0-PresentHMO MEDICAIDMEDICAID xxxxxxxxx 2019 [place] 00:00:00 Methodis t 0-PresentMedicai d Problems Condition Condition Condition Status Onset Resolution Last Treating Co mments Source Name Details Category Date Date Treatment Clinician Date Seizure Seizure Disease Active [place] 11-11 [facility] st 00 Hypokalemi Hypokalemi Disease Active 2016-[address] [facility]04 [facility] [place] Acute Acute Disease Active 2016-[address] [facility] encephalop encephalop 1-30 Marianna kes - athy athy 00:00: Medical 00 [place] Seizure Seizure Disease Active 2016-[address] [facility] [address] disorder disorder -30 [facility] 00 [place] Leukocytos Leukocytos Disease Active 2016-[address] is is 1-30 [facility]: Medical 00 [place] Less than Less than Disease Active 2016-[address] [facility] [address] 8 weeks 8 weeks 1-30 [facility] - gestation gestation 00:00: Medi jesica of of 00 Center Allergies, Adverse Reactions, Alerts Allergy Allergy Status Severity Reaction(s) Onset Inactive Treating Comm ents Source Name Type Date Date Clinician No Known DA Active U [facility] 9[facility]11 [facility] 00:[facility]: d Medical [place] No Known DA Active U 2016-06 [facility] Allergie -24 [facility] s 00:00: [address] Social History Social Habit Start Date Stop Date Quantity Comments Source Sex Assigned At [place] Exposure to Not sure [place] [facility] dist SARS-CoV-2 (event) Alcohol intake 2019-11-12 2019-11-12 Ex-drinker [facility] thodist 00:00:00 00:00:00 (finding) Smoking Status Start Date Stop Date Source Never smoker Enrique Cruzis nina Medications Ordered Filled Start Stop Current Ordering Indication Dosage Frequency Signature Comments Components Source Medication Medication Date Date Medication? Clinician (SIG) Name Name levETIRAcet 2019- 2020- No 750mg Q.5D Take 750 Nunez [...] times a day for 30 days. B 2020- No 1{tbl} QD Take 1 N[facility]z complex-vit 11-14 tablet by Nd thodi carter 00:00: 23:[address] C-folic 00 :00 daily for acid 30 days. (FOLBEE PLUS 5 MG) 5 mg tablet per tablet cloBAZam 2020- No 10mg QD Take 1 [place] (ONFI) 10 11-14 tablet (10 Met hodi mg tablet 00:00: 23:59 mg total) st 00 :00 by mouth nightly for 30 days. ferrous 2019- 2020- No 325mg Q.5D Take 1 [place] sulfate 325 11-14 tablet Metho di (65 FE) MG 00:00: 23:59 ([address] tablet 00 :00 total) by mouth 2 (two) times a day with meals for 30 days. docusate 2020- No 100mg Q.5D Take 1 [place] on sodium 11-14 capsule Methodi (COLACE) 00:00: 23:59 ([address] 100 MG 00 :00 total) by capsule mouth 2 (two) times a day as needed for constipati on for up to 30 days. 2017- Yes 1{tbl} QD Take 1 [facility]-06 tablet by [facility] - w/calcium-i 00:00: mouth Medic al arabella-folate 00 daily. Center ( PLUS) 27 mg iron- 1 mg Tab levETIRAcet 2016- Yes 1000mg Q.5D Take [address] (KEPPRA) 2-05 tablet [facility] - 1000 MG 00:00: (1,000 mg Medic al tablet 00 total) by Center mouth 2 (two) times daily. Vital Signs Vital Name Observation Time Observation Value Comments Source Systolic blood 2019-11-15 12:02:13 114 mm[Hg] Sonjato n [facility] pressure Diastolic blood 2019-11-15 12:02:13 74 mm[Hg] Julee on [facility] pressure Heart rate 2019-11-15 12:02:13 93 /min Enrique Piedra Body temperature 2019-11-15 12:02:13 36.78 Melody Sonja ton [facility] Respiratory rate 2019-11-15 12:02:13 18 /min Sonja Piedra Oxygen saturation in 2019-11-15 12:02:13 97 /min [...] PLATELET AND 2019-11-13 04:00:00 Caesar Maxwell on [facility] DIFFERENTIAL BASIC METABOLIC PANEL 2019-11-13 04:00:00 Caesar Maxwell [facility] TOTAL IRON BINDING 2019-11-13 04:00:00 Caesar Maxwell CAPACITY FERRITIN LEVEL 2019-11-13 04:00:00 Caesar Maxwell Met hodist ESTIMATED GFR 2019-11-13 04:00:00 Caesar Maxwell Met hodist MANUAL DIFFERENTIAL 2019-11-13 04:00:00 Caesar Maxwell MRI BRAIN W WO CONTRAST 2019-11-13 02:16:00 Bina Bonds CONSULT TO OSTOMY CARE 2019-11-12 23:40:27 Caesar Maxwell [facility] NURSE ECG 12-LEAD 2019-11-12 21:10:47 Bina Bonds MARCELINO 2019-11-12 19:40:00 Bina Bonds FOLATE LEVEL 2019-11-12 19:40:00 Bina Bonds VITAMIN B12 LEVEL 2019-11-12 19:40:00 Bina Bonds [facility] C-REACTIVE PROTEIN 2019-11-12 19:40:00 Bina Bonds on [facility] HOMOCYSTINE, PLASMA 2019-11-12 19:40:00 Bina Bonds [facility] CORTISOL LEVEL, RANDOM 2019-11-12 19:40:00 Bina Bonds [facility] SEDIMENTATION RATE 2019-11-12 19:40:00 Bina Bonds on [facility] RHEUMATOID FACTOR 2019-11-12 19:40:00 Bina Bonds [facility] THYROID STIMULATING 2019-11-12 19:40:00 Bina Bonds [facility] HORMONE T4, FREE 2019-11-12 19:40:00 Bina Bonds SYPHILIS TOTAL ANTIBODY 2019-11-12 19:40:00 Bnia Bonds HIV AG/AB COMBINATION 2019-11-12 19:40:00 Bina Bonds [facility] VITAMIN D 25 HYDROXY 2019-11-12 19:40:00 Bina Bonds [facility] LEVEL CREATINE KINASE, TOTAL 2019-11-12 19:40:00 Shari Bailey on [facility] (CPK) Adolfo PROLACTIN LEVEL 2019-11-12 19:40:00 Shari Bailey Meth odist Adolfo MARCELINO TITER 2019-11-12 19:40:00 Shari Bailey Meth odist Adolfo CT CERVICAL SPINE WO 2019-11-12 18:12:54 Bailey, Shari Nunez [facility] CONTRAST Adolfo CT MAXILLOFACIAL WO 2019-11-12 18:09:40 BaileyManas chasemayda Nunez [facility] CONTRAST Adolfo CT HEAD WO CONTRAST 2019-11-12 18:09:19 BaileyManas chasemayda Nunez [facility] Adolfo XR CHEST 1 VW PORTABLE 2019-11-12 17:35:36 Shari Bailey on [facility] Adolfo HC COMPLETE BLD COUNT 2019-11-12 17:04:00 Shari Bailey [facility] W/AUTO DIFF Adolfo COMPREHENSIVE METABOLIC 2019-11-12 17:04:00 Shari Bailey [facility] PANEL Adolfo ALCOHOL LEVEL, BLOOD 2019-11-12 17:04:00 Shari Bailey [facility] Adolfo KEPPRA (LEVETIRACETAM) 2019-11-12 17:04:00 Shari Bailey on [facility] LEVEL Adolfo ESTIMATED GFR 2019-11-12 17:04:00 Leo Sharimayda Nunez Meth odist Adolfo URINE CULTURE 2019-11-12 14:44:00 Keanu Flores Meth odist URINALYSIS SCREEN AND 2019-11-12 14:44:00 Keanu Flores [facility] MICROSCOPY, WITH REFLEX TO CULTURE HCG QUALITATIVE, URINE 2019-11-12 14:44:00 Keanu Flores on [facility] SCREEN URINE DRUGS OF ABUSE 2019-11-12 14:44:00 Keanu Flores [facility] SCREEN Plan of Care Planned Activity Planned Date Details Comments Source Future Scheduled 2020-01-14 INFLUENZA VACCINE Luz pinzon [facility] Test 00:00:00 [code = INFLUENZA VACCINE] Future Scheduled 2010 Screening for Enrique Parks thodist Test 00:00:00 malignant neoplasm of cervix (procedure) [code = 963281598] Encounters Start End Encounter Admission Attending Care Care Encounter Source Date/Time Date/Time Type Type Clinicians Facility Department ID 2020-01-18 2020-01-18 Transition Marlyn Fengalberta [id number] 00:00:00 00:00:00 of Care Adair Starksy [id number] [place] 4.2.7.2.686 [id number] 2020-01-16 2020-01-17 Emergency [facility] [id number] 22:16:00 00:53:00 Pamela Leach [id number] [place] 4.2.7.2.686 [place] [id number] 2020-01-16 2020-01-16 Orders Doctor ELVIA [id number] 00:00:00 00:00:00 Only Unassigned, MICHAELLE [id number] [place] [address]686 [id number] 2019-11-29 2019-11-29 [id number] 13:51:42 18:42:00 Brittany Leach [id number] [place] 4.2.7.2.686 [place] [id number] 2019-11-29 2019-11-29 Telephone [facility] [id number] 00:00:00 00:00:00 Cecilia Leach [id number] [place] 4.2.7.2.686 [facility] [id number] [address] 2019-11-29 2019-11-29 Orders Doctor ELVIA 1.2.840.114 [id number] 00:00:00 00:00:00 Only Unassigned, MICHAELLE [id number] [place] [address]686 [id number] [id number] 2019-11-12 2019-11-15 Inpatient LIANA, [facility] [id number] [place] 00:00:00 00:00:[address] 2019-10-24 2019-10-24 Hospital Aleksandar . 1.2.840.114 [id number] 14:33:37 23:59:00 Encounter [facility]j [facility] 350.1.13.10 [facility] 4.2.7.2.686 [place] [id number] 2019-10-11 2019-10-11 Refill Rita [facility] [id number] 00:00:00 00:00:00 Cecilia Hany 350.1.13.10 [place] 4.2.7.2.686 [facility] [id number] [address] 2019-10-06 2019-10-06 Telemedici Rita [facility] 1.2.840.114 [id number] 08:13:12 15:30:52 ne Visit Cecilia Carcamoton 350.1.13.10 [place] 4.2.7.2.686 Professio [id number] [address] 2019-08-12 2019-08-12 Case [facility] [id number] 00:00:00 00:00:00 Management Daina Carcamoton 350.1.13.10 [place] 4.2.7.2.686 [facility] [id number] [address] 2019-08-12 2019-08-12 Telephone Ad, [facility] [id number] 00:00:00 00:00:00 Daina Leach 350.1.13.10 [place] 4.2.7.2.686 Profess[facility] [id number] [address] 2019-08-10 2019-08-10 [facility] [id number] 14:12:35 15:35:54 Visit Daina Man Hany 350.1.13.10 [place] 4.2.7.2.[address] [id number] [address] Results Test Description Test Test Results Result Source Time Comments Comments Continuous EEG 2019-11- CONTINUOUS VIDEO-EEG [place] monitoring [address] 17:34:53 Patient [...] Comme nts MARCELINO titer (test code = 70145-6) 1:160 Not-Detected A MARCELINO pattern (test code = 26576-3) Homogeneous Not-Detected A Lab Interpretation (test code = 57241-5) Abnormal Enrique [id number] 13:08:33 Test Item Value Reference Range Interpretation Comments MARCELINO screen (test code Positive Negative A Test p erformed using = 550) [employer] DAPI MARCELINO kit (Indirect Immunofluoresce nce Assay) for Anti -Nuclear Antibody on [employer] 16 0 Analyzer. Lab Interpretation Abnormal (test code = 29634-0) Nunez MethodistCBC with platelet and ynhfynbvevhr3644-88-74 08:57:11 Test Item Value Reference Range Interpretation Comments WBC (test code = 68565-3) 7.99 4.50- 11.00 k/uL RBC (test code = 73464-0) 4.06 m/uL 4.2-5.5 L HGB (test code = 718-7) 10.8 g/dL 12-16 L HCT (test code = 4544-3) 34.1 % 37-47 L MCV (test code = 787-2) 84.0 fL 82-100 MCH (test code = 785-6) 26.6 pg 27-34 L MCHC (test code = 786-4) 31.7 g/dL 31-37 RDW - SD (test code = 40340-5) 48.1 fL 37-55 MPV (test code = 90826-0) 10.2 fL 8.8-13.2 Platelet count (test code = 251 150- 400 k/uL 87943-2) Nucleated RBC (test code = 0.00 /100 WBC 48803-1) Neutrophils (test code = 11456-7) 51.0 % 39-69 Lymphocytes (test code = 86975-3) 34.0 % 25-45 Monocytes (test code = 40938-2) 13.0 % 0-10 H Eosinophils (test code = 25814-7) 2.0 % 0-5 Basophils (test code = 07681-8) 0.0 % 0-1 Lab Interpretation (test code = Abnormal 20836-4) [place] MethodistManual ymygzhmxaiml6490-35-52 08:57:11 Test Item Value Reference Range Interpretation Comments Manual differential (test code = PERFORMED 47450-1) Neutrophils (test code = 51.0 % 39-69 88192-3) Lymphocytes (test code = 34.0 % 25-45 88103-9) Monocytes (test code = 07624-8) 13.0 % 0-10 H Eosinophils (test code = 2.0 % 0-5 87301-6) Basophils (test code = 32640-7) 0.0 % 0-1 Metamyelocytes (test code = 0 % 740-1) Promyelocytes (test code = 0 % 783-1) Platelet slide review (test code Sana adequate = 93894-3) Anisocytosis (test code = 702-1) Moderate Ovalocytes (test code = 774-0) Moderate Enlarged platelets (test code = Moderate A 55533-8) Lab Interpretation (test code = Abnormal 61151-4) [place] MethodistContinuous EEG brrwfnwiuk3824-75-13 07:42:19CONTINUOUS VIDEO- EEG MONITORING REPORT Patient Name: [...] seizures occurred. ICD-10 Code: R56.9[facility] MethodistBasic metabolic kzsbl6635-41-06 06:44:31 Test Item Value Reference Range Interpretation Comments Sodium (test code = 2951-2) 135 135- 148 mEq/L Potassium (test code = 2823-3) 3.4 3.5- 5.0 mEq/L L Chloride (test code = 2075-0) 103 98- 112 mEq/L CO2 (test code = 8-9) 21 24- 31 mEq/L L Anion gap (test code = 42503-2) 11@ANIO 7- 15 mEq/L BUN (test code = 3094-0) 9 mg/dL 6-20 Creatinine (test code = 2160-0) 0.48 mg/dL 0.5-0.9 L Glucose (test code = 2345-7) 95 mg/dL 65-99 Calcium (test code = 24066-7) 9.2 mg/dL 8.3-10.2 Lab Interpretation (test code = Abnormal 90723-2) Nunez MethodistEstimated [id number] 06:44:31 Test Item Value Reference Range Interpretation Comments Estimated GFR (test >=90 mL/min/1.73 m2 Haider wiggins Units code = 5488) InterpretationG 1 >=90 Normal or highG2 60-89 Mildly bmddzkbjiC4h 45-59 Mildly to mode rately kdkhtyzcmK9n 30-44 Moderately to severely decreasedG4 15-29 Severely decre asedG5 <15 Kidn ey failureThe eGFR was calculated alyssa fortune the Chronic Kidney Disease Epidemiology Co llaboration (CKD-EPI) equat ion. Interpretation is based on recommendations of the National Kidney Foundation-Kidn ey Disease Outcomes Qualit y Initiative (NKF-KDOQI) pub lished in 2014. Enrique MethodistKeppra (Levetiracetam) [id number] 05:29:41 Test Item Value Reference Interpretation Comments Range Levetiracetam 30 ug/mL 12-46 INTERPRETIVE I NFORMATION: (test code = Keppra 4478-4) (Levetiracetam) Therapeutic Range: 12-46 u g/mL Toxic: Not wel l EstablishedPhar macokinetics of levetiracetam a re affected by renal function. Adverse effects may include andi nolence, weakness, heada justus and vomiting.This l evetiracetam (Keppra) immuno assay uses the [employer] reagents, which has known cross -reactivity with the drug brivar acetam (Briviact) and may report inaccurate resu lts. Patients transitioning f rom levetiracetam t o brivaracetam or those who ar e using both medications alejandra uld not monitor drug concentrat ions with the [employer]MRKTK Diagnostics assay. These patients should be monitored using a validat ed chromatographic methodology that distinguis hes between drugs to determ ine drug concentrations. Performed by [employer] ,[address] [address] 08 tol .[facility], Josué Barreto MD, Lab. Director Enrique CruzistVitamin D 25 hydroxy gkpon1183-08-36 15:46:04 Test Item Value Reference Range Interpretation [...] hods. Lab Interpretation Abnormal (test code = 94132-9) [place] MethodistContinuous EEG nmtokiepcs1162-08-51 07:19:24 CONTINUOUS VIDEO-EEG MONITORING REPORT Patient Name: [...] No seizures occurred. ICD-10 Code: R56.9[facility] EEG (routine) - Baseline [id number] 06:43:32EEG RECORDING AWAKE & ASLEEP - Baseline [...] EEG and agree with the above findings. Rihcard Henley MDSsm Health Caremingo MethodistECG 12 [id number] 20:07:26 Test Item Value Reference Range Interpretation Comments Ventricular rate (test 81 code = 253) Atrial rate (test code = 81 255) [place] interval (test code = 164 266) QRSD [...] available-Electronica lly Signed By Adrian Ibarra MD ([id number]) on 11/13/2019 8:07:25 PM Nunez MethodistSyphilis total ahxfprlv6509-88-71 10:13:08 Test Item Value Reference Range Interpretation Comments Syphilis total Non-reactive Non-reactive No serologica l antibody (test code evidence of syphilis = 6194) infection. [place] MethodistFerritin szyra4082-17-19 07:54:01 Test Item Value Reference Range Interpretation Comments Ferritin level (test code = 2276-4) <13 13-150 A Lab Interpretation (test code = Abnormal 95185-8) Nunez MethodistTotal iron binding kdzivkxh2838-14-90 07:50:12 Test Item Value Reference Range Interpretation Comments Iron level (test code = 2498-4) 20 ug/dL 37-145 L Iron binding capacity (test code = 335 ug/dL 442-197 2881-7) % Saturation (test code = 2502-3) 6.0 % 15-38 L Lab Interpretation (test code = Abnormal 97628-1) [place] NancyistMRI Brain W Wo Vxtbyyse0215-23-93 06:11:14Hm Interface, Radiology Results - 11/13/2019 6:14 AM CDTEXAMINATION: MRI BRAIN W [...] hypoperfusion or cuco-ictal hyperperfusion to localize seizure focus.[facility]-[id number] MethodistSedimentation rate 2019-11-12 22:03:32 Test Item Value Reference Range Interpretation Comments Sedimentation rate (test code = 9 0- 20 mm/hr 92274-6) [facility] gclgjdzfjpa1133-24-27 21:46:22 Test Item Value Reference Range Interpretation Comments HIV Ag/Ab combination (test code Non-reactive Non-reactive = 5299) [facility] HospitalVitamin B12 [id number] 20:56:33 Test Item Value Reference Range Interpretation Comments Vitamin B12 (test 466 pg/mL 211-946 Significan t overlap code = 2132-9) exists betwee n normal and deficiency states.However, most patients with deficiencies wi ll have Serum B12 <2 00 pg/mL. [place] MethodistFolate oqjqm6663-11-08 20:56:33 Test Item Value Reference Range Interpretation Comments Folate (test code = 2284-8) 9.3 ng/mL 4.8-24.2 [facility] HospitalistT4, [id number] 20:48:50 Test Item Value Reference Range Interpretation Comments T4, free (test code = 3024-7) 1.2 ng/dL 0.9-1.7 [facility] HospitalCortisol level, [id number] 20:48:37 Test Item Value Reference Range Interpretation Comments Cortisol, random 2 ug/dL Reference R anges are not (test code = 2143-6) establi shed for non-timed Cortisol levels .Reference Range for Timed Cortisol: 6 - 10 AM 6 - 18 ug/dl 4 - 8 PM 3 - 11 ug/ dl [facility] HospitalThyroid stimulating [id number] 20:48:37 Test Item Value Reference Range Interpretation Comments TSH (test code = 3016-3) 2.21 0.27- 4.20 uIU/mL [place] MethodistProlactin [id number] 20:48:36 Test Item Value Reference Range Interpretation Comments Prolactin (test code = 2842-3) 22 ng/mL 5-23 [place] MethodistCreatine kinase, total (CPK)2019-11-12 20:42:35 Test Item Value Reference Range Interpretation Comments Creatine kinase (test code = 2157-6) 56 U/L 26-192 [place] MethodistC-reactive [id number] 20:42:35 Test Item Value Reference Range Interpretation Comments CRP (test code = 1988-) <0.30 0-0.5 [place] MethodistRheumatoid [id number] 20:36:01 Test Item Value Reference Range Interpretation Comments Rheumatoid factor (test code = 96968-4) <10 0- 13 IU/mL [place] MethodistHomocystine, cnvbgo2703-68-20 20:36:01 Test Item Value Reference Range Interpretation Comments Homocysteine (test 10.3 umol/L 0-15 The risk for coronary code = 40308-1) vascular dis ease increases progressively w ith homocysteine concentration. A 3.4 times greater r isk is associated wit h a homocysteine concentration o f greater than 15.8 umol/L as carlin red to a concentration below 14.1 umol/L. [place] MethodistCT Cervical Spine Wo [id number] 18:17:20Hm Interface, Radiology Results 11/12/2019 6:20 PM [...] fracture or subluxation identified in the cervical spine.[facility]-[id number] MethodistCT Maxillofacial Wo Vlcjhoil1873-00-48 18:15:46Hm Interface, Radiology Results 11/12/2019 6:18 PM [...] soft tissues are unremarkable.The paranasal sinuses are clear.[id number] [facility] CT Head Wo Enyabnsd3055-96-23 18:11:26Hm Interface, Radiology Results 11/12/2019 6:14 PM [...] air cells are clear.IMPRESSION:No acute intracranial abnormality identified.[id number] MethodistComprehensive metabolic [id number] 18:10:58 Test Item Value Reference Range Interpretation Comments Sodium (test code = 142 135- 148 mEq/L 2951-2) Potassium (test code = 3.7 3.5- 5.0 mEq/L 2823-3) Chloride (test code = 106 98- 112 mEq/L 2075-0) CO2 (test code = 8-9) 22 24- 31 mEq/L L Anion gap (test code = 14@ANIO 7- 15 mEq/L 74602-5) BUN (test code = 3094-0) 4 mg/dL 6-20 L Creatinine (test code = 0.60 mg/dL 0.5-0.9 2160-0) Glucose (test code = 98 mg/dL 65-99 2345-7) Calcium (test code = 9.4 mg/dL 8.3-10.2 56411-6) Protein (test code = 7.2 g/dL 6.3-8.3 -[place] n 2885-2) 4.6-7.0 g/dL1 week 4.4-7 .6 g/dL7 months-1y ear 5.1-7 .3 g/dL1-2 years 5.6-7 .5 g/dL>3 years 6.0-8 .0 g/lU02-935 6.3-8 .3 g/dL Albumin (test code = 3.7 g/dL 3.5-5 1751-7) A/G ratio (test code = 1.1 0.7-3.8 1759-0) Alkaline phosphatase 79 U/L 35-104 (test code = 6768-6) AST (test code = 1920-8) 29 U/L 10-35 ALT (test code = 1742-6) 39 U/L 5-50 Total bilirubin (test <0.2 0-1.2 code = 1974-2) Lab Interpretation (test Abnormal code = 43018-8) [place] MethodistAlcohol level, [id number] 18:06:03 Test Item Value Reference Range Interpretation Comments Alcohol percent None Detected % Normal (test code = None Detec tedLegal 5643-2) Intoxication in [place] 80 mg/dL (0.08% ) - Whole BloodToxi c Concentration 200 mg/dL (0.2%)Potential ly Fatal 350 - 500 mg/dL (0.35 - 0 .5%) [place] MethodistXR Chest 1 Vw [id number] 17:37:03Hm Interface, Radiology Results 11/12/2019 5:40 PM CDTEXAMINATION: XR CHEST 1 VW PORTABLECLINICAL HISTORY: SOBXR CHEST 1 VW PORTABLE images are submittedCOMPARISON: NONEFINDINGS:The cardiac silhouette is normal in size. The pulmonary vasculature is within normal limits. The lung zones have no focal area of consolidation. There is no pleural effusion or pneumothorax.IMPRESSION:1. Thereis no acute cardiopulmonary disease.[id number] [facility] Urinalysis screen and microscopy, with reflex to [id number] 16:10:59 Test Item Value Reference Range Interpretation Comments Specimen site (test code = Clean catch 7224491) Color, UA (test code = 5778-6) Straw Appearance, UA (test code = Hazy 5767-9) Specific gravity, UA (test code = 1.020 1.001-1.035 5811-5) pH, UA (test code = 5803-2) 8.0 5.0-8.5 Protein, UA (test code = 37045-1) Negative Negative Glucose, UA (test code = 81355-1) Negative Negative Ketones, UA (test code = 2514-8) Negative Negative Bilirubin, UA (test code = Negative Negative 5770-3) Blood, UA (test code = 5794-3) Negative Negative Nitrite, UA (test code = 5802-4) Negative Negative Urobilinogen, UA (test code = <2.0 <2.0 84619-4) Leukocyte esterase, UA (test code Negative Negative = 5799-2) Epithelial cells, UA (test code = 6 /HPF 5787-7) WBC, UA (test code = 5821-4) <1 0- 4 /HPF RBC, UA (test code = 65425-3) None seen 0- 5 /HPF Bacteria, UA (test code = Few None seen 33508-0) Yeast, UA (test code = 24760-7) None seen Yeast with pseudohyphae, UA (test None seen code = 50953-2) Enrique PiedraUrine drugs of abuse kpyftu0519-75-09 15:33:59 Test Item Value Reference Interpretation Comments Range Amphetamine screen, Negative urine (test code = 3349-8) Barbiturate screen, Negative urine (test code = 3377-9) Benzodiazepine Negative screen, urine (test code = 3390-2) Cocaine screen, Negative urine (test code = 3397-7) Methadone Negative metabolite (EDDP), urine (test code = 62690-6) Opiates screen, Negative urine (test code = 3879-4) Oxycodone screen, Negative urine (test code = 75410-3) Phencyclidine Negative screen, urine (test code = 3936-2) Tricyclic screen, Negative urine (test code = 17127-2) Cannabinoid screen, Negative Drug scr een minimum [...] d efinitive testing is requ ired. Enrique MethodistUrine lteazqh5454-42-36 15:28:27 Test Item Value Reference Range Interpretation Comments Urine culture (test SEE COMMENT Bacteriu landry screen code = 5175691) negative. Enrique MethodisthCG qualitative, urine rleujk8526-94-31 15:26:18 Test Item Value Reference Range Interpretation Comments hCG qualitative, Negative Sensitivity of HCG test: urine (test code = 25 mIU/mL 2106-3) Enrique MethodistRPR Yjbpjolhsjn0681-36-23 16:47:08 Test Item Value Reference Range Interpretation [...] = 06-14-2020 N Expiration Dt) Thyroid Stimulating Ciwkpyg7915-40-58 06:31:44 Test Item Value Reference Range Interpretation Comments TSH (test code = TSH) 3.830 mIU/mL 0.270-4.200 Lipid [id number] 06:24:40 Test Item Value Reference Range Interpretation Comments Cholesterol Total 152 mg/dL 0-200 RISK OF HE ART (test code = DISEASEPublishe d by Cholesterol Total) [employer] Marcelino lyte Optimal Borderl ine [...] LDL/HDL Ratio=L DL Calc/HDL Chol Urine Drug [id number] 21:53:06 Test Item Value Reference Range Interpretation [...] if desired . Urinalysis with Culture, if [id number] 21:40:53 Test Item Value Reference Range Interpretation [...] Indicated Not Indicated Micro Ind?) Comprehensive Metabolic [id number] 21:34:15 Test Item Value Reference Range Interpretation [...] = A/G 1.6 ratio N Ratio) Alcohol [id number] 21:34:15 Test Item Value Reference Range Interpretation Comments Ethanol Level (test <0.00 g/dL 0.00-0.01 Intoxica vandana 0.080 g/dL code = Ethanol or more Level) Ethanol Inst (test <0 N code = Ethanol Inst) Comprehensive Metabolic [id number] 21:34:15 Test Item Value Reference Range Interpretation [...] National Kidney Foundation, http://nkdep.ni h.gov Comprehensive Metabolic [id number] 21:34:15 Test Item Value Reference Range Interpretation [...] ag e have not been validated by [facility] MDRD study and should be interpreted [...] ag e have not been validated by [facility] MDRD study and should be interpreted wit h caution. eGFR R esult Interpretation: eGFR > or = 60 is in the Normal RangeeGF R < 60 may mean kid shannan diseaseeGFR < 1 5 may mean kidney failure Rang es recommended by the National Kidney Foundation, http://nkdep.ni h.gov Complete Blood Count with Lfctclfspqca6635-39-47 21:15:24 Test Item Value Reference Range Interpretation [...] code = IPF) 0 % N Automated [id number] 21:15:24 Test Item Value Reference Range Interpretation Comments Neutro Auto (test code = Neutro 54.3 % 36.0-70.0 Auto) Lymph Auto (test code = Lymph Auto) 32.3 % 12.0-44.0 [place] Auto (test code = [place] Auto) 11.1 % 0.0-11.0 H Eos, Auto (test code = Eos, Auto) 1.3 % 0.0-7.0 Basophil Auto (test code = Basophil 0.7 % 0.0-2.0 Auto) Neutro Absolute (test code = Neutro 6.2 x10 1.6-7.4 Absolute) Lymph Absolute (test code = Lymph 3.71 x10 .50-4.60 Absolute) [place] Absolute (test code = [place] 1.28 x10 .00-1.20 H Absolute) Eos Absolute (test code = Eos 0.15 x10 0.00-0.74 Absolute) Baso Absolute (test code = Baso 0.08 x10 0.00-0.21 Absolute) IG [id number] 21:15:24 Test Item Value Reference Range Interpretation Comments IG (test code = IG) 0.3 % 0.0-5.0 IG Abs (test code = IG Abs) 0 x10 N HCG Qualitative [id number] 20:45:17 Test Item Value Reference Range Interpretation [...] 72 hours. Lot # (test code = [id number] N Lot #) Expiration Dt (test 2020-12-12 N code = Expiration Dt) Neg Control (test Negative code = Neg Control) Pos Control (test Positive code = Pos Control) Internal QC (test Acceptable code = Internal QC) RPR [id number] 12:07:58 Test Item Value Reference Range Interpretation [...] = 04-14-2020 N Expiration Dt) Thyroid Stimulating [id number] 07:59:52 Test Item Value Reference Range Interpretation Comments TSH (test code = TSH) 0.717 mIU/mL 0.270-4.200 Lipid [id number] 07:52:46 Test Item Value Reference Range Interpretation Comments Cholesterol Total 141 mg/dL 0-200 RISK OF HE ART (test code = DISEASEPublishe d by Cholesterol Total) [employer] Marcelino lyte Optimal Borderl ine [...] LDL/HDL Ratio=L DL Calc/HDL Chol Urine Drug [id number] 15:27:40 Test Item Value Reference Range Interpretation [...] matory test if desired . Comprehensive Metabolic [id number] 15:15:20 Test Item Value Reference Range Interpretation [...] A/G 1.9 ratio N Ratio) Comprehensive Metabolic [id number] 15:15:20 Test Item Value Reference Range Interpretation [...] the National Kidney Foundation, http://nkdep.ni h.gov Alcohol [id number] 15:15:20 Test Item Value Reference Range Interpretation Comments Ethanol Level (test <0.00 g/dL 0.00-0.01 Intoxica vandana 0.080 g/dL code = Ethanol or more Level) Ethanol Inst (test <0 N code = Ethanol Inst) Comprehensive Metabolic [id number] 15:15:20 Test Item Value Reference Range Interpretation [...] the National Kidney Foundation, http://nkdep.ni h.gov Urinalysis [id number] 15:11:20 Test Item Value Reference Range Interpretation Comments UA WBC (test code = UA WBC) 6-10 0-5 A UA RBC (test code = UA RBC) 0-5 0-5 UA Bacteria (test code = UA Moderate A Bacteria) UA Squam Epithelial (test code = UA TNTC A Squam Epithelial) UA Mucous (test code = UA Mucous) Few A Urinalysis with Microscopic if [id number] 14:42:58 Test Item Value Reference Range Interpretation [...] GL_SJM_UA_MICRO _IN D Complete Blood Count with Bfmumhxtbcsj1962-62-39 14:37:26 Test Item Value Reference Range Interpretation [...] code = IPF) 0 % N Automated [id number] 14:37:26 Test Item Value Reference Range Interpretation Comments Neutro Auto (test code = Neutro 65.8 % 36.0-70.0 Auto) Lymph Auto (test code = Lymph Auto) 25.5 % 12.0-44.0 [place] Auto (test code = [place] Auto) 7.3 % 0.0-11.0 Eos, Auto (test code = Eos, Auto) 0.7 % 0.0-7.0 Basophil Auto (test code = Basophil 0.5 % 0.0-2.0 Auto) Neutro Absolute (test code = Neutro 6.0 x10 1.6-7.4 Absolute) Lymph Absolute (test code = Lymph 2.34 x10 .50-4.60 Absolute) [place] Absolute (test code = [place] .67 x10 .00-1.20 Absolute) Eos Absolute (test code = Eos 0.06 x10 0.00-0.74 Absolute) Baso Absolute (test code = Baso 0.05 x10 0.00-0.21 Absolute) IG [id number] 14:37:26 Test Item Value Reference Range Interpretation Comments IG (test code = IG) 0.2 % 0.0-5.0 IG Abs (test code = IG Abs) 0 x10 N HCG Qualitative [id number] 14:34:08 Test Item Value Reference Range Interpretation [...] 72 hours. Lot # (test code = [id number] N Lot #) Expiration Dt (test 2020-03-14 N code = Expiration Dt) Neg Control (test Negative code = Neg Control) Pos Control (test Positive code = Pos Control) Internal QC (test Acceptable code = Internal QC) DRUGS OF ABUSE SCREEN [id number] 17:11:00 Test Item Value Reference Range Interpretation [...] = [place]) concentrati on: 300 ng/mL URINALYSIS [id number] 17:08:00 Test Item Value Reference Range Interpretation [...] (test code = MOD NONE BACU) URINALYSIS [id number] 17:00:00 Test Item Value Reference Range Interpretation [...] (test code = NONE BACU) HCG SERUM [id number] 16:52:00 Test Item Value Reference Range Interpretation Comments HCG SERUM QUAL (test code = HCGQL) NEGATIVE NEGATIVE - CT HEAD/BRAIN W/O [id number] 16:51:00 FAX: Theresa Fields MD [place]: St: REG Name: HEATHER HOPE [facility] : 1990 Age/S: 28/F [address] [facility] Unit: [id number] Loc: [place], [place] Phys: [place] [id number] Acct: [id number] Dis Date: Status: REG ER PHONE #: [phone] Exam Date: 02/23/2019 1642 FAX #: [phone] Reason: SEIZURE EXAMS: CPT CODE: [id number] CT HEAD/BRAIN W/O CONT 52513 Dictation location: U19. CT HEAD WITHOUT CONTRAST. [...] MD Technologist: HEATHER DICKSON Trnscrd Dt/Tm: 02/23/2019 (1173) t.GAVIOTAR.SP17 Orig Print D/T: S: 02/23/2019 (3734 PAGE 1 Signed ReportBASIC METABOLIC [id number] 16:31:00 Test Item Value Reference Range Interpretation [...] CA) 8.8 mg/dl 8.0-10.5 N BASIC METABOLIC [id number] 16:26:00 Test Item Value Reference Range Interpretation [...] code = CA) mg/dl 8.0-10.5 CBC W/AUTO [id number] 16:15:00 Test Item Value Reference Range Interpretation [...] 3-60 N code = VLDL) RAPID PLASMA [id number] 10:31:00 Test Item Value Reference Range Interpretation Comments RAPID PLASMA REAGIN (test code = Nonreactive Nonreactive RPR) GLYCOSYLATED HEMOGLOBIN (HA1C)2018-12-07 10:05:00 Test Item Value Reference Range Interpretation Comments GLYCOSYLATED HEMOGLOBIN (HA1C) 5.8 % TOT HB 4.5-6.2 N (test code = GLYHGB) [id number] 15:31:00 Test Item Value Reference Range Interpretation Comments ACETAMINOPHEN (test < 1 MCG/ML 10-30 L Acetamin ophen is code = ACET) possibly toxic at levels of: 1. m ore than 150 MCG/ML 4 hours post kaylin stion. 2. more than 5 0 MCG/ML 12 hours post ingestion. [id number] 15:31:00 Test Item Value Reference Range Interpretation Comments SALICYLATE (test code = < 3 MG/DL 0-20 N Refe rence Range: BOSSMAN) Analgesic...... ...... ...... < 10 mg /dl Therapeutic.... ...... ...... 15-20 mg /dl Mild Toxicity....... ...... . > 30 mg/dl Severe Toxicity....... ..... > 60 mg/dl UA RFLX [id number] 14:18:00 Test Item Value Reference Range Interpretation [...] Clean Catch (test code = UASPEC) UA [id number] 14:18:00 Test Item Value Reference Range Interpretation Comments UA WBC (test code = WBCU) < 10 #/hpf <10 UA RBC (test code = RBCU) 0-2 #/hpf NONE SEEN A UA BACTERIA (test code = BACU) RARE #/hpf NONE SEEN UA SQUAMOUS CELLS (test code = 0 - 20 #/lpf <100 SQU) UA MUCUS (test code = MUCU) 1+ #/lpf NONE SEEN BASIC METABOLIC [id number] 14:16:00 Test Item Value Reference Range Interpretation [...] 9.4 MG/DL 8.7-10.5 N CA) HEPATIC FUNCTION [id number] 14:16:00 Test Item Value Reference Range Interpretation [...] 50-136 N TOTAL (test code = ALKP) [id number] 14:16:00 Test Item Value Reference Range Interpretation Comments CK (test code = CKT) 87 Units/L 26-192 N [id number] 14:16:00 Test Item Value Reference Range Interpretation Comments ALCOHOL (test code = < 3 MG/DL 0-10 N 0 - 10: Should be ALC) interpreted as NEGATIVE. 11 - 50: None to mild euphoria. 51 - 100: Mild influence on vision and dark adapta tion. > 80: Legal intoxication; D epression of GERMINATION TESTING MANAGER; Increasing degr ee of poisoning. > 400: Fatalities repo rted. Results are for medical purposes only a nd not forlegal or emp loyment evaluative purp oses. BASIC METABOLIC [id number] 14:09:00 Test Item Value Reference Range Interpretation [...] 9.4 MG/DL 8.7-10.5 N CA) HEPATIC FUNCTION [id number] 14:09:00 Test Item Value Reference Range Interpretation [...] TOTAL (test Units/L 50-136 code = ALKP) [id number] 14:09:00 Test Item Value Reference Range Interpretation Comments CK (test code = CKT) Units/L 26-192 [id number] 14:09:00 Test Item Value Reference Range Interpretation Comments ALCOHOL (test code = ALC) MG/DL 0-10 LACTIC ACID [id number] 13:50:00 Test Item Value Reference Range Interpretation Comments LACTIC ACID POC 0.97 MMOL/L 0.90-1.70 N Performed by certified (test code = LACTP) anode machine operator at [facility] [id number] 13:48:00 Test Item Value Reference Range Interpretation Comments GLUBED (test code = 88 MG/DL 65-99 N Performe d by certified GLUBED) anode machine operator at Located within [facility] DRUG OF ABUSE SCREEN [id number] 13:43:00 Test Item Value Reference Interpretation Comments [...] or infa nt custody issues. Negativ e [place] Level ng/ml ------- ----- Cocaine 300 Methamp hetamine (Ecstacy) 500 Cannabinoids (THC) 50 Amphetamine 1000 Barbiturate s 200 Benzodia zepines 200 Opiat es 300 Ph encyclidine (PCP) 25 UR HCG [id number] 13:39:00 Test Item Value Reference Range Interpretation [...] using aquantitative h CG assay. UA RFLX [id number] 13:38:00 Test Item Value Reference Range Interpretation [...] Clean Catch (test code = UASPEC) UA [id number] 13:38:00 Test Item Value Reference Range Interpretation Comments UA WBC (test code = WBCU) #/hpf <10 UA RBC (test code = RBCU) #/hpf NONE SEEN UA SQUAMOUS CELLS (test code = SQU) #/lpf <100 UA RFLX [id number] 13:38:00 Test Item Value Reference Range Interpretation [...] Clean Catch (test code = UASPEC) UA [id number] 13:38:00 Test Item Value Reference Range Interpretation Comments UA WBC (test code = WBCU) #/hpf <10 UA RBC (test code = RBCU) #/hpf NONE SEEN UA SQUAMOUS CELLS (test code = SQU) #/lpf <100 CBC W/AUTO [id number] 13:26:00 Test Item Value Reference Range Interpretation [...] = BA#) 0.05 x10 3/uL 0.0-0.2 N [id number] 19:07:00 Test Item Value Reference Interpretation Comments Range LEVETIRACETAM 28.7 ug/mL 10.0-40.0 This test was developed and (test code = its performance LEVTAM) characteristics [facility]. It has not been cleared orappro froylan by the Food and Drug Administration. Performed At: [place] [place], [place] [id number] ra Larissa MENDOZA Ph:[phone] BASIC METABOLIC [id number] 04:58:00 Test Item Value Reference Range Interpretation [...] code = 8.9 MG/DL 8.7-10.5 N CA) [id number] 04:58:00 Test Item Value Reference Range Interpretation Comments MAGNESIUM (test code = MAG) 1.9 MG/DL 1.8-2.4 N CBC W/AUTO [id number] 04:08:00 Test Item Value Reference Range Interpretation [...] 0.0-0.2 N NRBC#) - MRI BRAIN W/O [id number] 13:51:00 Patient Name: HEATHER HOPE Unit No: [id number] EXAMS: CPT CODE: [id number] MRI BRAIN W/O CONTRAST 90869 Reason: sz INDICATION: Seizure COMPARISON: CT brain, [...] MD Technologist: Andre Self MRI Trscrpt Dt/ (4029)AngeliqueDW6 Orig Print D/T: S: 09/17/2018 (7134) [facility] CntNAME: HEATHER HOPE NOVEMBER [address] PHYS: Felecia Dominguez [place] [address] : 1990 AGE: 27 SEX: F LOC: Nabil.D313 1 PHONE #: [phone] EXAM DATE: 09/17/2018 STATUS: ADM IN FAX #: RAD NO: DC Dt: PAGE 1 Signed [id number] 07:25:00 Test Item Value Reference Range Interpretation Comments PROLACTIN (test code = 24.6 ng/mL 4.8-23.3 H Perfo rmed At: HD PROLAC) [facility] [id number] Sb Man MD Ph:[phone] UA RFLX MICROSCOPIC [id number] 19:02:00 Test Item Value Reference Range Interpretation [...] UACULT) URINE SOURCE: Clean CatchUA RFLX MICROSCOPIC [id number] 18:56:00 Test Item Value Reference Range Interpretation [...] (test code = UACULT) URINE SOURCE: Clean [id number] 15:56:00 Test Item Value Reference Range Interpretation Comments CK (test code = CKT) 34 Units/L 26-192 N BASIC METABOLIC [id number] 12:57:00 Test Item Value Reference Range Interpretation [...] code = 8.6 MG/DL 8.7-10.5 L CA) [id number] 12:57:00 Test Item Value Reference Range Interpretation Comments CK (test code = CKT) 32 Units/L 26-192 N CBC W/AUTO [id number] 12:33:00 Test Item Value Reference Range Interpretation [...] 3/uL 0.0-0.2 N NRBC#) TOTAL IRON BINDING [id number] 05:50:00 Test Item Value Reference Range Interpretation Comments SERUM IRON (test code = IRON) 17 MCG/DL 50-170 L TOTAL IRON BINDING CAPACITY (test 363 MCG/DL 280-400 N code = TIBC) IRON SATURATION (test code = 5 % 15-50 L FESAT) [id number] 05:50:00 Test Item Value Reference Range Interpretation Comments FERRITIN (test code = LULI) 11 NG/ML 3-105 N HEPATIC FUNCTION [id number] 05:32:00 Test Item Value Reference Range Interpretation [...] code = ALKP) - CT HEAD/BRAIN W/O [id number] 20:19:00 Patient Name: HEATHER HOPE Unit No: [id number] EXAMS: CPT CODE: [id number] CT HEAD/BRAIN W/O CONT 52049 Reason: seizure TECHNIQUE: Contiguous 5 mm images [...] Cristiane Heath Technologist: Edel BURNS Trscrpt Dt/ (2018)t.PAMELA Orig Print D/T: S: 09/14/2018 (2021) CTDI: DLP: [facility] NAME: [address] PHYS: NGA. - Keanu Váz[place] [address] : 1990 AGE: 27 SEX: F LOC: D.NER PHONE#: [phone] EXAM DATE: 09/14/2018 STATUS: REG ER FAX #: RAD NO: DC Dt: PAGE 1 Signed Report- XR CHEST 1 [id number] 20:18:00 [facility] Unit No: [id number] EXAMS: CPT CODE: [id number] XR CHEST 1 V 47176 Reason: screen for pneumonia FINDINGS: Single view ofthe chest shows normal heart size and pulmonary vasculature. The lungs are clear bilaterally. There is no focal infiltrate, pleural effusion or pneumothorax. IMPRESSION: No a cute cardiopulmonary findings at 2018 Reported and signed by: Lashell Jimenez MD CC: Keanu Vázquez MD; Cristiane Heath Technologist: Edel Cade CT Trscrpt Dt/ (2017)Tristan Orig PrintD/T: S: 09/14/2018 (2020) [facility] PHYS: HOGSAVANAH. - Keanu [place] [address] : 1990 AGE: 27 SEX: F LOC: MATT PHONE #: [phone] EXAM DATE: STATUS: REG ER FAX #: RAD NO: DC Dt: PAGE 1 Signed ReportHCG SERUM [id number] 20:04:00 Test Item Value Reference Range Interpretation [...] using aquantitative h CG assay. BASIC METABOLIC [id number] 19:51:00 Test Item Value Reference Range Interpretation [...] 9.3 MG/DL 8.7-10.5 N CA) CBC W/AUTO [id number] 19:46:00 Test Item Value Reference Range Interpretation [...] BA#) 0.05 x10 3/uL 0.0-0.2 N BLOOD [id number] 10:00:00 Test Item Value Reference Range Interpretation Comments CULTURE (BEAKER) (test No growth in 5 days code = 1095) HCG, QUANTITATIVE, [id number] 15:37:00 Test Item Value Reference Range Interpretation Comments GONADOTROPIN, CHORIONIC (HCG) 63610 mIU/mL 0-10 H QUANT (BEAKER) (test code = 649) Non- Females: <10 mIU/mL Females: Gestation Age Reference Range(mIU/mL) 0.2-1 Week 5-50 1-2 Weeks 50-500 2-3 Weeks 100-5,000 3-4Weeks 500-10,000 4-5 Weeks 1,000-50,000 5-6 Weeks 10,000-100,000 6-8 Weeks 15,000-200,000 2-3 Months 10,000-100,000COMPREHENSIVE METABOLIC [id number] 15:10:00 Test Item Value Reference Range Interpretation [...] PATIEN TS. CBC W/PLT COUNT & AUTO [id number] 14:53:00 Test Item Value Reference Range Interpretation [...] (test code = 2801) U/S, , FIRST [id number] 07:52:00Reason for exam:-> Reason for exam:->please include [...] 1 day. An embryonic pole is evident. Lane-rump length measures 0.63 cm, correlating with estimated [...] MDReport Verified Date/Time: 05/17/2017 07:52:37 Reading Location: [facility] [address] [place] [address] Consult Reading Room PREGNANCY SCREEN, [id number] 05:28:00 Test Item Value Reference Range Interpretation Comments TEST URINE (BEAKER) (test Positive code = 583) MR, BRAIN, WITHOUT [id number] 18:54:00Reason for exam:->Stroke evaluationFINAL REPORT MRI brain [...] otherwise unremarkable noncontrast examination. Signed: Brandon Parra MDReport Verified Date/Time: 05/15/2017 18:54:11 Reading Location: [facility] Radiology Reading Room EEG AWAKE AND [id number] 12:08:00Reason for exam:->? nonconvulsive statusDATE OF TEST: 05/15/2017DATE OF REPORT 05/15/2017 ACC: [id number] EE Start time: 1034 Stop time: 1054 ICD-10: R56.9CPT Code: 91690MMWCIPJ: 26 y/o woman with epilepsy found down [...] recordings.Marika Smith M.D.Neurophysiology FellowSwathi Harper M.D.Neurophysiology Attending [id number] 04:27:00 Test Item Value Reference Range Interpretation Comments PROCALCITONIN (BEAKER) (test code 0.17 ng/mL <0.05 H = 3036) SEPSIS RISK (ng/mL)Low: 0.05-0.50Intermediate: 0.51-2.00High: >=[id number] 03:15:00 Test Item Value Reference Range Interpretation Comments PHOSPHORUS (BEAKER) (test code = 3.1 mg/dL 2.3-4.7 604) [id number] 03:15:00 Test Item Value Reference Range Interpretation Comments MAGNESIUM (BEAKER) (test code = 1.9 mg/dL 1.6-2.6 627) BASIC METABOLIC [id number] 03:15:00 Test Item Value Reference Range Interpretation [...] code = 380) LACTIC ACID, VENOUS, WHOLE [id number] 03:09:00 Test Item Value Reference Range Interpretation Comments LACTATE BLOOD VENOUS (2) (BEAKER) 0.6 mmol/L 0.5-2.2 (test code = 2872) Effective 10/17/2015: Units/Reference Range ChangeNew: 0.5-2.2 mmol/L Previous: 5-20 mg/dLPROTHROMBIN TIME/[id number] 03:07:00 Test Item Value Reference Range Interpretation [...] = 2801) RAD, CHEST, 1 VIEW, NON [id number] 01:06:00Reason for exam:->possible infectionShould this be performed [...] Verified Date/Time: 05/15/2017 01:06:06 Reading Location: [address] Reading Room
--- OUTSIDE RECORDS SUMMARY | 2020-01-20 19:18 | XMS REPORT | Summary of Care ---
:1990 Author Organization [facility] - Health Address [address] [place] [address] Care Team Providers Name Role Phone Doctor Unassigned, [place] Insurance Hmo Unavailable Denilson Lorenz MD Primary Care Provider Encounter Details Date Type Department Care Team Description 01/16/2020 Orders Only [facility] Doctor Unassigned, No [address] [facility] Name [place] [id number] [id number] Allergies No Known Allergiesdocumented as of this encounter (statuses as of 01/16/2020) Medications Medication Sig Dispensed Refills Start Date [...] as of this encounter (statuses as of 01/16/2020) Active Problems Problem Noted Date Abnormal vaginal [...] as of this encounter (statuses as of 01/16/2020) Resolved Problems Problem Noted Date Resolved Date [...] as of this encounter (statuses as of 01/16/2020) Immunizations Name Administration Dates Next Due Influenza Virus Vaccine Quad IM 3+ YRS 06/22/2017 Rho (d) Immune Globulin 12/13/2017, 12/21/2009 TDAP 10/22/2017 documented as of this encounter Social History Tobacco Use Types Packs/Day Years Used Date Former Smoker Smokeless Tobacco: Never Used Alcohol Use Drinks/Week oz/Week Comments No Education Answer Date Recorded What is the highest level of school you have Some college, n o degree 02/03/2019 completed or the highest degree you have received? Sex Assigned at Date Recorded Not on file documented as of this encounter Last Filed Vital Signs Not on filedocumented in this encounter Plan of Treatment Health Maintenance Due Date Last Done Comments Depression Screening 2001 INFLUENZA VACCINE (#1) 2020 06/22/2017 PAP SMEAR 07/13/2021 07/13/2018, 06/22/2017 DTaP,Tdap,and Td Vaccines (2 10/23/2027 10/22/2017 - Td) PNEUMOCOCCAL 0-64 YEARS Aged Out No longe r eligible based COMBINED SERIES on patient's age to complete this to pic documented as of this encounter Procedures Procedure Name Priority Date/Time Associated Diagnosis Comme nts CONSENT/REFUSAL FOR Routine 01/16/2020 9:50 PM CDT DIAGNOSIS AND TREATMENT documented in this encounter Results Not on filedocumented in this encounter Insurance Payer Benefit Plan Subscriber ID Effective Dates Phone Address Type / Group CIGERLINDA CIGERLINDA II [id number] [facility] [id number] 2019-Pres Medicaid COMM PLAN - STAR t MANAGED MEDICAID documented as of this encounter
--- OUTSIDE RECORDS SUMMARY | 2020-01-20 19:19 | XMS REPORT | Summary of Care ---
:1990 Author Organization [facility] Address [address] [place] [id number] Care Team Providers Name Role Phone Doctor Unassigned, [employer] Insurance Hmo Unavailable Deinlson Lorenz MD Primary Care Provider Reason for Referral (Routine) Status Reason Specialty Diagnoses / Referred By Referred To Procedures Contact Contact New Request PN-NEUROLOGY Diagnoses Seizure Contusion of lip, initial encounter Pamela Last, Procedures Discharge Follow-Up: Specialty Service PN-NEUROLOGY ; [address] [phone] Radiology Services (STAT) Status Reason Specialty Diagnoses / Referred By Referred To Procedures Contact Contact New Request Diagnostic Diagnoses Seizure Pamela Last, Radiology Procedures Chest [address] [address] Reason for Visit Reason Comments Seizures Auth/Cert Status Reason Specialty Diagnoses / Referred By Referred To Procedures Contact Contact Emergency Medicine [facility] ergency Dept [address] [place] [address] Fax: Encounter Details Date Type Department Care Team Description 01/16/2020 - Emergency ADC-Emergency Pamela Last, Seizure ( Primary Dx); 01/17/2020 Department [facility] Contusion of lip, initial encounter [address] [place] [phone] Allergies No Known Allergiesdocumented as of this encounter (statuses as of 01/17/2020) Medications Medication Sig Dispensed Refills Start Date [...] as of this encounter (statuses as of 01/17/2020) Active Problems Problem Noted Date Abnormal vaginal [...] as of this encounter (statuses as of 01/17/2020) Resolved Problems Problem Noted Date Resolved Date [...] as of this encounter (statuses as of 01/17/2020) Immunizations Name Administration Dates Next Due Influenza [...] Assigned at Date Recorded Not on file COVID-19 Exposure Response Date Recorded In the last month, have you been in contact with No / Unsure 01/16/2020 10:12 PM CDT someone who was confirmed or suspected to have Coronavirus / COVID-19? documented as of this encounter Last Filed Vital Signs Vital Sign Reading Time Taken Comments Blood Pressure 119/72 01/17/2020 12:00 AM CDT Pulse 71 01/17/2020 12:00 AM CDT Temperature 36.7 C (98 F) 01/16/2020 10:14 PM CDT Respiratory Rate 16 01/17/2020 12:00 AM CDT Oxygen Saturation 99% 01/17/2020 12:00 AM CDT Inhaled Oxygen Concentration - - Weight 68 kg (150 lb) 01/16/2020 10:14 PM CDT Height 160 cm (5' 3") 01/16/2020 10:14 PM CDT Body Mass Index 26.57 01/16/2020 10:14 PM CDT documented in this encounter Discharge Instructions Pamela Kennedy FNP - 01/17/2020Continue taking home medication Follow up with your neurologist or new one given- call an make an appointment tomorrow Return for any concerns AttachmentsThe following attachments cannot be sent through Care Everywhere.Soft Tissue Contusion ([place])Bruises (Contusions) ([place])Seizure, Recurrent (Adult) ([place])documented in this encounter ED Notes Shanae Chilel RN - 01/16/2020 10:12 PM CDTPatient complaining of seizures. States she has a history and takes keppra as prescribed. She is concerned because she states she is compliant with meds and is unsure of why she is having breakthrough seizures. documented in this encounter Miscellaneous Notes ED Nurse Note - Tara Bianchi RN - 01/17/2020 12:47 AM CDTPt given printed and verbal discharge instructions regarding seizure and contusion of lip, encouraged hydration, No prescriptions provided Pt verbalized understanding of instructions, pt awake alert oriented, resp reg unlabored, skin w/d, color appropriate for race, moves all ext well,pt encouraged to follow up with pcp Advised to seek medical attention for new/prolonged/worsening of symptoms, Symptoms were addressed No adverse reaction to meds given in ER noted upon discharge PIV d'cd, dressing to site, catheter in tact. Awake, alert oriented, resp reg unlabored, skin w/d, pt leaving amb with steady gait, in no apparent distress, D Nurse Note - Tara Bianchi RN - 01/17/2020 12:20 AM CDTPatient resting with eyes closed at this time. VSS. Will continue to monitor. documented in this encounter Plan of Treatment [...] Procedure Name Priority Date/Time Associated Comments Diagnosis ADC / LCC - DRUG STAT 01/17/2020 12:06 AM Seizure Resu lts for this SCREEN TRIAGE CDT procedure are in the results section. XR CHEST 1 VW STAT 01/16/2020 11:09 PM Seizure Results for this CDT procedure are i n the results section. POCT TEST SUSAN 01/16/2020 10:58 PM Seizure R esults for this CDT procedure are i n the results section. URINALYSIS STAT 01/16/2020 10:33 PM Seizure Results for this CDT procedure are i n the results section. CBC WITH DIFF STAT 01/16/2020 10:33 PM Seizure Results for this CDT procedure are i n the results section. BASIC METABOLIC STAT 01/16/2020 10:33 PM Seizure Resul ts for this PANEL (NA, K, CL, CDT procedure are in CO2, GLUCOSE, BUN, the resul ts CREATININE, CA) section. HEPATIC FUNCTION STAT 01/16/2020 10:33 PM Seizure Resu lts for this PANEL ([id number]) CDT procedure are in (ALB,T.PRO,BILI the results T,BU/BC,ALT,AST,ALK section. PHOS) NOTICE OF PRIVACY Routine 01/16/2020 9:51 PM PRACTICES CDT documented in this encounter Results ADC / LCC - DRUG SCREEN TRIAGE (01/17/2020 12:06 AM CDT) Pathologist Sig nature BENZO U Negative Negative [facility] SHAHANA U Negative Negative [facility] AMPHET Negative Negative [facility] THC Negative Negative [facility] METHADONE Negative Negative [facility] Meth U Negative Negative [facility] OPIATES Negative Negative [facility] Cocaine Metabolite Negative Negative [facility] PROPOXY Negative Negative [facility] Tric U Negative Negative [facility] PCP Negative Negative [facility] OXYCOD Negative Negative [facility] Specimen Urine - URINE, CLEAN CATCH Narrative Performed At Urine Drug Cutoff Ranges [facility] Benzodiazepines: 150 ng/mL Barbiturates: 200 ng/mL Amphetamine: 500 ng/mL Cannabinoids: 50 ng/mL Methadone: 200 ng/mL Methamphetamine: 500 ng/mL Opiates: 100 ng/mL or 2000 ng/mL Cocaine: 150 ng/mL Propoxyphene: 300 ng/mL Tricyclics: 300 ng/mL Oxycodone: 100 ng/mL PCP: 25 ng/mL The results are to be used only for medical (i.e., treatment) purposes. Unconfirmed screening results must not be used for non-medical purposes (e.g., employment testing, legal testing). Performing Organization Address City/State/Zipcode Phone Number [facility] CLIA: [id number] [place] [address] Chest 1 View (01/16/2020 11:09 PM CDT) Specimen Impressions Performed At PAC/VR/DOSE No acute cardiopulmonary abnormality. Preliminary Report Dictated by Resident: Adriana May MD., have reviewed this study and agree with the above report. Narrative Performed At PACS/VR/DOSE EXAM: XR CHEST 1 VW HISTORY: SZ COMPARISON: None FINDINGS: The lungs are clear without evidence of consolidation, pleural effusion or pneumothorax. The cardiomediastinal silhouette is norm al. No acute osseous abnormality is identifi ed. Procedure Note [facility], Radiant Results Inft User - 2019 11:13 PM CDT EXAM: XR CHEST 1 VW HISTORY: SZ COMPARISON: None FINDINGS: The lungs are clear without evidence of consolidation, pleural effusion or pneumothorax. The cardiomediastinal silhouette is norm al. No acute osseous abnormality is identifi ed. IMPRESSION No acute cardiopulmonary abnormality. Preliminary Report Dictated by Resident: Adriana May MD., have reviewed this study and agree with the above report. Performing Organization Address City/State/Zipcode Phone Number PACS/VR/DOSE POCT Test (01/16/2020 10:58 PM CDT) Pathologist Sig nature POCT PREG Negative On board controls acceptable Present with C Line POCT PREG LOT # [id number] POCT PREG TEST DATE 03/14/2021 Specimen Urine - URINE, CLEAN CATCH Hepatic Function Panel (ALB, T.PRO, BILI T, BU/BC, ALT, AST, ALK PHOS) (01/16/2020 10:33 PM CDT) Pathologist Sig [facility] TOTAL BILI 0.5 0.1 - 1.1 mg/dL [facility] BILI UNCON 0.6 0.1 - 1.1 mg/dL [facility] BILI CONJ 0.0 0.0 - 0.3 mg/dL [facility] T PROTEIN 7.6 6.3 - 8.2 g/dL [facility] ALBUMIN 4.4 3.5 - 5.0 g/dL [facility] ALK PHOS 65 34 - 122 U/L [facility] ALTv 14 5 - 35 U/L [facility] AST(SGOT) 30 13 - 40 U/L [facility] Specimen Blood - VENOUS Performing Organization Address City/[facility]/Zipcode Phone Number [facility] CLIA: [id number] [place] [address] Basic Metabolic Panel (NA, K, CL, CO2, GLUCOSE, BUN, CREATININE, CA) (01/16/2020 10:33 PM CDT) Pathologist Sig [facility] NA 139 135 - 145 [facility] mmol/L [facility] K 3.3 (L) 3.5 - 5.0 [facility] mmol/L [facility] CL 105 98 - 108 mmol/L [facility] CO2 TOTAL 24 23 - 31 mmol/L [facility] AGAP 10 2 - 16 [facility] BUN 10 7 - 23 mg/dL [facility] GLUCOSE 91 70 - 110 mg/dL [facility] CREATININE 0.51 0.50 - 1.04 [facility] mg/dL [facility] CALCIUM 9.2 8.6 - 10.6 [facility] mg/dL [facility] eGFR Calculation 141.6 mL/min/1.73m2 [facility] (Non[facility] [place]) eGFR Calculation 171.6 mL/min/1.73m2 [facility] () [facility] Specimen Blood - VENOUS Narrative Performed At [facility] of Glomerular Filtration Rate (GFR) [facility] and Staging of Kidney Disease* + [...] tests). Performing Organization Address City/State/Zipcode Phone Number [facility] CLIA: [id number] [place] [address] CBC with Differential (01/16/2020 10:33 PM CDT) Pathologist Sig nature WBC 10.07 4.30 - 11.10 [facility] 10*3/L [facility] RBC 4.21 3.93 - 5.25 [facility] 10*6/L [facility] HGB 12.3 11.6 - 15.0 [facility] g/dL [facility] HCT 36.8 35.7 - 45.2 % [facility] MCV 87.4 80.6 - 95.5 fL [facility] MCH 29.2 25.9 - 32.8 pg [facility] MCHC 33.4 31.6 - 35.1 [facility] g/dL [facility]PITAL [facility] RDW-SD 42.8 39.0 - 49.9 fL [facility] RDW-CV 13.6 12.0 - 15.5 % [facility] PLT 243 166 - 358 [facility] 10*3/L [facility] MPV 10.2 9.5 - 12.9 fL [facility] NRBC/100 WBC 0.0 0.0 - 10.0 /100 [facility] WBCs [facility] NRBC x10^3 <0.01 10*3/L [facility] GRAN MAT (NEUT) % 59.6 % [facility] IMM GRAN % 0.80 % [facility] LYMPH % 27.7 % [facility] MONO % 10.5 % [facility] EOS % 0.7 % [facility] BASO % 0.7 % [facility] GRAN MAT x10^3(ANC) 6.00 1.88 - 7.09 [facility] 10*3/uL [facility] IMM GRAN x10^3 0.08 (H) 0.00 - 0.06 [facility] 10*3/uL [facility] LYMPH x10^3 2.79 1.32 - 3.29 [facility] 10*3/uL [facility] MONO x10^3 1.06 (H) 0.33 - 0.92 [facility] 10*3/uL [facility] EOS x10^3 0.07 0.03 - 0.39 [facility] 10*3/uL [facility] BASO x10^3 0.07 0.01 - 0.07 [facility] 10*3/uL [facility] Specimen Blood - VENOUS Performing Organization Address City/State/Zipcode Phone Number [facility] CLIA: [id number] [place], [place] [id number] LABORATORY [address] Urinalysis (01/16/2020 10:33 PM CDT) Pathologist Sig nature APPEARANCE Hazy (A) Clear [facility] COLOR Yellow Yellow [facility] PH 5.0 4.8 - 8.0 [facility] SP GRAVITY 1.041 (H) 1.003 - 1.030 [facility] GLU U QUAL Normal Normal [facility] BLOOD Negative Negative [facility] KETONES 80 mg/dL (A) Negative [facility] PROTEIN 30 mg/dL (A) Negative [facility] UROBILIN Normal Normal [facility] BILIRUBIN Negative Negative [facility] NITRITE Negative Negative [facility] LEUK BLAKE 25/uL (A) Negative [facility] RBC/HPF 2 0 - 3 HPF [facility] WBC/HPF 6 (H) 0 - 5 HPF [facility] BACTERIA Moderate (A) Negative [facility] MUCOUS Marked (A) Negative LPF [facility] SQ EPITH 11 HPF [facility] Specimen Urine - URINE, CLEAN CATCH Performing Organization Address City/State/Zipcode Phone Number [facility] CLIA: [id number] [place], [place] [id number] LABORATORY [address] documented in this encounter Visit Diagnoses Diagnosis Seizure - Primary Other convulsions Contusion of lip, initial encounter documented in this encounter Administered Medications Medication Order MAR Action Action Date Dose Rate Site levETIRAcetam (KEPPRA) in NACL Given 01/17/2020 12:15 AM CDT 1,0 00 mg (ISO-OS) 1,000 mg/100 mL RTU 1,000 mg, IV Infusion, ONCE, 1 dose, 01/17/20 at 0100, 100 mL NaCl 0.9% (NS) bolus infusion New Bag 01/16/2020 10:58 PM CDT 1,000 mL 999 mL/hr 1,000 mL at 999 mL/hr, 1,000 mL, IV Infusion, ONCE, 1 dose, 01/16/20 at 2215, SUSAN documented in this encounter Insurance Payer Benefit Plan Subscriber ID Effective Dates Phone Address Type / Group EDELMIRA HICKEY II [id number] 2017-[place] O/PPO/POS t [facility] [id number] 2019-[place] Medicaid COMM PLAN - STAR t MANAGED MEDICAID [id number] documented as of this encounter
--- OUTSIDE RECORDS SUMMARY | 2020-01-20 19:19 | XMS REPORT | Summary of Care ---
:1990 Author Organization [address] [address] Care Team Providers Name Role Phone Doctor Unassigned, [place] Insurance Hmo Unavailable Denilson Lorenz MD Primary Care Provider Reason for Visit Reason Comments ED F/U Encounter Details Date Type Department Care Team Description 01/18/2020 Transition of Care [facility] Adair Feng RN ED F/U [address] [address] Allergies No Known Allergiesdocumented as of this encounter (statuses as of 01/18/2020) Medications Medication Sig Dispensed Refills Start Date [...] as of this encounter (statuses as of 01/18/2020) Active Problems Problem Noted Date Abnormal vaginal [...] as of this encounter (statuses as of 01/18/2020) Resolved Problems Problem Noted Date Resolved Date [...] as of this encounter (statuses as of 01/18/2020) Immunizations Name Administration Dates Next Due Influenza [...] Signs Not on filedocumented in this encounter Miscellaneous Notes Telephone Encounter - Adair Feng RN - 01/18/2020 12:38 PM Robert Feng RN, sql ssrs ssis developer, called Heather Hope is a 29 year old female following ED discharge on 01/17/2020; patient has had 2 ED visits in 90 days. CM made follow up call to patient post ED discharge. No answer and call went to voicemail. CM left adiscreet message with purpose of call and CM's call back information. documented in this encounter Plan of Treatment [...] Effective Dates Phone Address Type / Group CIGNA CIGNA II [id number] 2017-[place] O/PPO/POS t [facility] [id number] 2019-[place] Medicaid COMM PLAN - STAR t MANAGED MEDICAID documented as of this encounter
[2020-01-20 20:26] LABS: Absolute Lymphocytes (CBC) 1.8 K/uL (0.7-4.9); Basophils % 0.6 % (0-1.3); Hematocrit 39.9 % (36.0-45.0); Lymphocytes % 24.2 % (15.3-44.8); MPV 8.3 fL (7.6-11.3)
[2020-01-20] MEDS ORDERED: NA CHLORIDE 0.9% 100 ML IV ONE (20:30)
[2020-01-20] MEDS ORDERED: LEVETIRACETAM 500 MG/5 ML VIAL IV ONE (20:30)
[2020-01-20 20:34] LABS: Urine Blood 3+ (NEG); Urine Glucose NEGATIVE (NEG); Urine Protein 1+ (NEG); Urine Specific Gravity >1.030 (1.005-1.030)
[2020-01-20 20:42] LABS: ALT/SGPT 20 U/L (12-78); AST/SGOT 20 U/L (15-37); Albumin 4.3 g/dL (3.4-5.0); Alkaline Phosphatase 92 U/L (45-117); BUN Blood Urea Nitrogen 7 mg/dL (7-18); Bicarbonate 30 mmol/L (21-32); Bilirubin Direct 0.1 mg/dL (0-0.2); Bilirubin Total 0.4 mg/dL (0.2-1.0); Glucose Level 90 mg/dL (74-106); Potassium 3.7 mmol/L (3.5-5.1); Protein, Total 8.3 g/dL (6.4-8.2); Sodium Level 141 mmol/L (136-145)
[2020-01-20 20:47] LABS: Barbiturates NEGATIVE (NEGATIVE); Benzodiazepines NEGATIVE (NEGATIVE); Cocaine NEGATIVE (NEGATIVE); METHAMPHETAM NEGATIVE (NEGATIVE); Methadone NEGATIVE (NEGATIVE); Opiates NEGATIVE (NEGATIVE); Phencyclidine NEGATIVE (NEGATIVE); THC Cannibis NEGATIVE (NEGATIVE)
--- NOTE | 2020-01-20 21:31 | EDPHYS ---
Physician Documentation [facility] Name: Heather Hope Age: 29 yrs Sex: Female : 1990 Arrival Date: 01/20/2020 Time: 19:09 Bed 17 Private MD: ED Physician Tariq Doe HPI: 01/19 19:47 This 29 yrs old Female presents to ER via EMS with complaints of Probable mh7 Seizure. 19:47 The patient presents after having a possible seizure episode, no tonic-clonic activity mh7 was appreciated, the episode(s) was witnessed, by co-worker(s). Character of seizure(s): Loss of consciousness: it is not known if the patient experienced loss of consciousness, Motor activity: the motor activity is unknown, Incontinence: none, Apnea: the patient did not experience apnea, Circulation: the patient did not experience evidence of pulse disturbance, Eye movements: are unknown. Seizure onset: today. Context: the seizure(s) was witnessed, by co-worker(s), occurred at work, occurred while the patient was unknown. Contributing factors: unknown. Seizure Hx: Original onset: longstanding, Cause: unknown, Last seizure: The patient's last seizure was approximately 6 day(s) ago, Usual frequency: irregular frequency, Seizure medications: Keppra. Associated injury: The patient did not suffer any apparent associated injury. EMS care: none. Current symptoms: drowsy. The patient has experienced similar episodes in the past, chronically. 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 - Social history:: Smoking status: Patient/guardian denies using. ROS: 19:47 Constitutional: Negative for fever, chills, and weight loss, Eyes: Negative for injury, mh7 pain, redness, and discharge, ENT: Negative for injury, pain, and discharge, Neck: Negative for injury, pain, and swelling, Cardiovascular: Negative for chest pain, palpitations, and edema, Respiratory: Negative for shortness of breath, cough, wheezing, and pleuritic chest pain, Abdomen/GI: Negative for abdominal pain, nausea, vomiting, diarrhea, and constipation, Back: Negative for injury and pain, : Negative for injury, bleeding, discharge, and swelling, MS/Extremity: Negative for injury and deformity, Skin: Negative for injury, rash, and discoloration, Psych: Negative for depression, anxiety, suicide ideation, homicidal ideation, and hallucinations, Allergy/Immunology: Negative for hives, rash, and allergies, Endocrine: Negative for neck swelling, polydipsia, polyuria, polyphagia, and marked weight changes, Hematologic/Lymphatic: Negative for swollen nodes, abnormal bleeding, and unusual bruising. Exam: 19:47 Head/Face: Normocephalic, atraumatic. Eyes: Pupils equal round and reactive to light, mh7 extra-ocular motions intact. Lids and lashes normal. Conjunctiva and sclera are non-icteric and not injected. Cornea within normal limits. Periorbital areas with no swelling, redness, or edema. Neck: Trachea midline, no thyromegaly or masses palpated, and no cervical lymphadenopathy. Supple, full range of motion without nuchal rigidity, or vertebral point tenderness. No Meningismus. Chest/axilla: Normal chest wall appearance and motion. Nontender with no deformity. No lesions are appreciated. Cardiovascular: Regular rate and rhythm with a normal S1 and S2. No gallops, murmurs, or rubs. Normal PMI, no JVD. No pulse deficits. Respiratory: Lungs have equal breath sounds bilaterally, clear to auscultation and percussion. No rales, rhonchi or wheezes noted. No increased work of breathing, no retractions or nasal flaring. Abdomen/GI: Soft, non-tender, with normal bowel sounds. No distension or tympany. No guarding or rebound. No evidence of tenderness throughout. Back: No spinal tenderness. No costovertebral tenderness. Full range of motion. Skin: Warm, dry with normal turgor. Normal color with no rashes, no lesions, and no evidence of cellulitis. MS/ Extremity: Pulses equal, no cyanosis. Neurovascular intact. Full, normal range of motion. 19:47 Constitutional: The patient appears in no acute distress, comfortable, well developed, drowsy 19:47 Neuro: Orientation: is normal, Mentation: is normal, Memory: is normal, Cranial nerves: grossly normal, Cerebellar function: is grossly normal, Motor: is normal, Sensation: is normal, Gait: not tested. Deep tendon reflexes are normal, Babinski testing is normal, seizure activity, is not displayed by the patient, Abnormal movements: there are no abnormal movements. 19:47 Psych: Behavior/mood is pleasant, cooperative, Affect is calm, Oriented to person, place, time, Patient has no thoughts/intents to harm self or others. Judgement / Insight is normal. Memory is normal. Delusions/hallucinations are not present. Vital Signs: 19:14 BP 140 / 88; Pulse 101; Resp 18; Temp 98.2; Pulse Ox 100% ; Weight 68.04 kg; Height 5 wh ft. 3 in. (160.02 cm); 21:00 BP 118 / 59; Pulse 83; Resp 18; Pulse Ox 99% on R/A; wh 19:14 Body Mass Index 26.57 (68.04 kg, 160.02 cm) [place] Coma Score: 19:24 Eye Response: spontaneous(4). Verbal Response: oriented(5). Motor Response: obeys commands(6). Total: 15. MDM: 19:32 Patient medically screened. mh7 21:28 Differential diagnosis: drug overdose, seizure, hypoglycemia, medication non mh7 compliance. Data reviewed: vital signs, nurses notes, EMS record, old medical records, lab test result(s), CBC, drug level(s), electrolytes, urinalysis, UPT:. Data interpreted: Pulse oximetry: on room air is 99 %. Interpretation: normal. Counseling: I had a detailed discussion with the patient and/or guardian regarding: the historical points, exam findings, and any diagnostic results supporting the discharge/admit diagnosis, lab results, the need for outpatient follow up, to return to the emergency department if symptoms worsen or persist or if there are any questions or concerns that arise at home. Response to treatment: the patient's symptoms have resolved after treatment, the patient's blood pressure is in an acceptable range, mental status has returned to baseline, the patient no longer shows bradycardia, the patient is not short of breath, the patient is not tachycardic, the patient's pain is gone, the patient's temperature has normalized. 01/19 19:47 Order name: CBC with Diff mh7 01/19 19:47 Order name: Basic Metabolic Panel [facility] 01/19 19:47 Order name: LFT's [facility] 01/19 19:47 Order name: ETOH Level [facility] 01/19 19:47 Order name: UDS [facility] 01/19 20:20 Order name: Urine --Ancillary (enter results) [facility] 01/19 20:20 Order name: Urine Dipstick--Ancillary (enter results) [facility] 01/19 20:27 Order name: Glucose, Ancillary Testing; Complete Time: 20:56 EDMS 01/19 20:29 Order name: CBC with Automated Diff; Complete Time: 20:56 EDMS 01/19 20:34 Order name: Urine --Ancillary; Complete Time: 20:56 EDMS 01/19 20:34 Order name: Urine Dipstick-Ancillary; Complete Time: 20:56 EDMS 01/19 20:43 Order name: Basic Metabolic Panel; Complete Time: 20:56 EDMS 01/19 20:43 Order name: Liver (Hepatic) Function; Complete Time: 20:56 EDMS 01/19 20:47 Order name: Urine Drug Screen; Complete Time: 20:56 EDMS 01/19 19:35 Order name: Urine Dipstick-Ancillary (obtain specimen); Complete Time: 20:18 [facility] 01/19 19:35 Order name: Urine Test (obtain specimen); Complete Time: 20:18 [facility] 01/19 20:56 Order name: Alcohol Serum/Plasma; Complete Time: 20:56 EDMS Administered Medications: 20:18 Drug: NS 0.9% 1000 ml Route: IV; Rate: 1000 ml; Site: right antecubital; 21:49 Follow up: Response: No adverse reaction; IV Status: Completed infusion 20:23 Drug: Keppra 1000 mg Route: IV; Rate: bolus; Site: right antecubital; 21:49 Follow up: Response: No adverse reaction; IV Status: Completed infusion Disposition: 01/20 06:21 Co-signature as Attending Physician, Tariq Doe MD. [facility] Disposition: 01/20/20 21:31 Discharged to Home. Impression: Epilepsy and recurrent seizures, Urinary tract infection, site not specified. - Condition is Stable. - Discharge Instructions: Seizure, Adult, Urinary Tract Infection, Adult, [employer]-Vm[employer]. - Prescriptions for Keflex 500 mg Oral Capsule - take 1 capsule by ORAL route every 12 hours for 7 days; 14 capsule. - Medication Reconciliation Form, Thank You Letter, Antibiotic Education, Prescription Opioid Use form. - Follow up: Private Physician; When: 1 - 2 days; Reason: Worsening of condition, Recheck today's complaints, Continuance of care, Re-evaluation by your physician. Follow up: Srinivas German MD; When: 1 - 2 days; Reason: Worsening of condition, Recheck today's complaints. - Problem is an ongoing problem. - Symptoms have improved. Signatures: Dispatcher [employer] EDMS Yen Santamaria Maurice, MD MD mh7 Corrections: (The following items were deleted from the chart) 01/19 22:13 21:31 01/20/2020 21:31 Discharged to Home. Impression: Epilepsy and recurrent seizures; wh Urinary tract infection, site not specified. Condition is Stable. Forms are Medication Reconciliation Form, Thank You Letter, Antibiotic Education, Prescription Opioid Use. Follow up: Private Physician; When: 1 - 2 days; Reason: Worsening of condition, Recheck today's complaints, Continuance of care, Re-evaluation by your physician. Follow up: Srinivas German; When: 1 - 2 days; Reason: Worsening of condition, Recheck today's complaints. Problem is an ongoing problem. Symptoms have improved. mh7
--- NOTE | 2020-01-20 21:31 | ER ---
Nurse's Notes [facility] Name: Heather Hope Age: 29 yrs Sex: Female : 1990 Arrival Date: 01/20/2020 Time: 19:09 Bed 17 Private MD: Diagnosis: Epilepsy and recurrent seizures;Urinary tract infection, site not specified Presentation: 01/19 19:14 Chief complaint: EMS states: Coworker toned them because Pt looks like about to faint, wh cold rag was applied and Pt was AOx4, en rout to ER Pt was shaking but no seizures noted, Pt was sleepy but was AOx4. Coronavirus screen: Client denies travel out of the [place] in the last 14 days. At this time, the client does not indicate any symptoms associated with coronavirus-19. Ebola Screen: Patient negative for fever greater than or equal to 101.5 degrees Fahrenheit, and additional compatible Ebola Virus Disease symptoms Patient denies exposure to infectious person. Initial Sepsis Screen: Does the patient meet any 2 criteria? HR > 90 bpm. Does the patient have a suspected source of infection? No. Patient's initial sepsis screen is negative. Risk Assessment: Do you want to hurt yourself or someone else? Patient reports no desire to harm self or others. Onset of symptoms was January 20, 2020. 19:14 Method Of Arrival: EMS: [facility] 19:14 Acuity: [facility] OFFICER: 19:18 LMP 01/20/2020 Historical: - Allergies: 19:18 No Known Allergies; - Home Meds: 19:18 Keppra 750 mg Oral tab 3 tabs 2 times per day [Active]; - PMHx: 19:18 Anemia; Seizures; - Immunization history:: Adult Immunizations unknown. - Social history:: Smoking status: Patient/guardian denies using. Screenin:18 Abuse screen: Denies threats or abuse. Denies injuries from another. Nutritional screening: No deficits noted. Tuberculosis screening: No symptoms or risk factors identified. Fall Risk None identified. 19:24 VAN Screening: Arm Drift: Patient shows no arm weakness. Visual Disturbance: No visual wh disturbance noted. Aphasia: No aphasia noted. Neglect: No neglect noted. Assessment: 19:18 General: Appears in no apparent distress. Behavior is calm, cooperative, appropriate wh for age. Pain: Denies pain. Neuro: Level of Consciousness is awake, alert, obeys commands, Oriented to person, place, time, situation, Appropriate for age Commissary Worker are equal bilaterally Moves all extremities. Speech is normal, Facial symmetry appears normal, Pupils are PERRLA. Cardiovascular: Capillary refill < 3 seconds. Respiratory: Airway is patent Respiratory effort is even, unlabored, Respiratory pattern is regular, symmetrical. GI: Abdomen is flat, non-distended. : No signs and/or symptoms were reported regarding the genitourinary system. EENT: No signs and/or symptoms were reported regarding the EENT system. Derm: Skin is intact, is healthy with good turgor, Skin is pink, warm \T\ dry. normal. Musculoskeletal: Circulation, motion, and sensation intact. 21:00 Reassessment: Patient appears in no apparent distress at this time. No changes from previously documented assessment. Patient and/or family updated on plan of care and expected duration. Pain level reassessed. Patient is alert, oriented x 3, equal unlabored respirations, skin warm/dry/pink. 21:40 Reassessment: Pt already discharged, awaiting for a ride, notified Charge Nurse. 21:50 Reassessment: primary nurse states pt reports she is unable to find a ride to her home, pt mother contacted, states she will take the pt home. awaiting transport for pt due to discharge ordered at this time. Vital Signs: 19:14 BP 140 / 88; Pulse 101; Resp 18; Temp 98.2; Pulse Ox 100% ; Weight 68.04 kg; Height 5 wh ft. 3 in. (160.02 cm); 21:00 BP 118 / 59; Pulse 83; Resp 18; Pulse Ox 99% on R/A; wh 19:14 Body Mass Index 26.57 (68.04 kg, 160.02 cm) [place] Coma Score: 19:24 Eye Response: spontaneous(4). Verbal Response: oriented(5). Motor Response: obeys commands(6). Total: 15. ED Course: 19:09 Patient arrived in ED. es 19:14 Yen Santamaria is Primary Nurse. wh 19:17 Triage completed. 19:18 Tariq Doe MD is Attending Physician. [facility] 19:18 Seizure precautions initiated. 19:24 Arm band placed on right wrist. 19:45 Inserted saline lock: 22 gauge in right antecubital area, using aseptic technique. Blood collected. 21:30 Srinivas German MD is Referral Physician. [facility] 21:48 No provider procedures requiring assistance completed. IV discontinued, intact, bleeding controlled, No redness/swelling at site. Administered Medications: 20:18 Drug: NS 0.9% 1000 ml Route: IV; Rate: 1000 ml; Site: right antecubital; 21:49 Follow up: Response: No adverse reaction; IV Status: Completed infusion 20:23 Drug: Keppra 1000 mg Route: IV; Rate: bolus; Site: right antecubital; 21:49 Follow up: Response: No adverse reaction; IV Status: Completed infusion Outcome: 21:31 Discharge ordered by MD. [facility] 21:48 Discharged to home ambulatory. 21:48 Condition: stable 21:48 Discharge instructions given to patient, Instructed on discharge instructions, follow up and referral plans. medication usage, POC Demonstrated understanding of instructions, follow-up care, medications, POC Prescriptions given X 1. 22:13 Patient left the ED. Signatures: Bart Maguire, RN Carol Moran Winsy Tariq Doe MD MD [facility]
[2020-01-20 22:20] VITALS: TEMP 98.2
[2020-01-20 22:21] VITALS: BP 118/59; O2SAT 99
== END 2020-01-20 22:13 | disposition home or self-care (01) ==
LOC: ER 19:07
DX: N39.0 Urinary tract infection, site not specified (principal)
CPT/HCPCS: 96365; 85025; 80048; 36415; 80320; 81025; 82947; 80076; 80307 ×8; 81003; 99284; J1953

== ENCOUNTER 2020-02-12 09:58 | Emergency (ER) | payer OTHER ==
--- OUTSIDE RECORDS SUMMARY | 2020-02-12 10:00 | XMS REPORT | Clinical Summary ---
:1990 [facility] Address [address] [place] [address] Care Team Providers Name Role Phone Unavailable Primary Care Provider Unavailable Allergies No Known Allergies Medications Medication Sig Dispensed Refills Start Date End Date Status levETIRAcetam (KEPPRA) Take 1 tablet 60 tablet 2 05/19/2017 Active 1000 MG tablet (1,000 mg total) by mouth 2 (two) times daily. vitamin Take 1 tablet by 90 tablet 3 05/20/2017 Active w/imqgbkc-bwhb-usekax mouth daily. ( PLUS) 27 mg iron- [...] Not on file Results Not on fileafter 02/11/2019 Insurance Payer Benefit Plan / Group Subscriber ID Type Phone A [facility] MEDICAID MEDICAID OF [place] xxxxxxxxx Medicaid [id number] 1 Advance Directives For more information, please contact:[facility] [address] [facility] [id number] [place], [place] [phone] Code Status Date Activated Date Inactivated Comments Full Code 05/14/2017 10:10 PM 05/19/2017 2:55 PM This code status was determined by: Patient
--- OUTSIDE RECORDS SUMMARY | 2020-02-12 10:00 | XMS REPORT | Clinical Summary ---
:1990 Author Organization [facility] [employer] Address [address] [place] [address] Care Team Providers Name Role Phone Asked, [...] - Hospital Encounter General Internal Shari Bailey ([facility]) 11/15/2019 Medicine MD Adolfo (Primary Dx) Caesar Maxwell MD Adenwala, Yusuf Ebrahim, MD 10/31/2019 Travel 10/24/2019 Travel after 02/11/2019 Social History Tobacco Use Types Packs/Day Years [...] Comments CERVICAL CANCER SCREENING 2010 INFLUENZA VACCINE 03/15/2020 Procedures Procedure Name Priority Date/Time Associated Comments [...] are i n the results section. after 02/11/2019 Results Continuous EEG monitoring (11/15/2019 9:41 AM [...] time period is included. Manual differential PERFORMED [facility] Neutrophils 51.0 39.0 - 69.0 % [facility] Lymphocytes 34.0 25.0 - 45.0 % [facility] Monocytes 13.0 (H) 0.0 - 10.0 % [facility] Eosinophils 2.0 0.0 - 5.0 % [facility] Basophils 0.0 0.0 - 1.0 % [facility] Metamyelocytes 0 % [facility] Promyelocytes 0 % [facility] Platelet slide review Sana adequate [facility] Anisocytosis Moderate [facility] Ovalocytes Moderate [facility] Enlarged platelets Moderate (A) [facility] Specimen Performing Organization Address City/State/Zipcode Phone Number [facility] DEPARTMENT OF PATHOLOGY AND [address] [place] [address] [phone] [facility] [address] [place] [address] CBC with platelet and differential (11/15/2019 4:30 AM CDT)Only the most recent of3 resultswithin the time period is included. Pathologist Sig nature WBC 7.99 4.50 - 11.00 k/uL [facility] RBC 4.06 (L) 4.20 - 5.50 m/uL [facility] HGB 10.8 (L) 12.0 - 16.0 g/dL [facility] HCT 34.1 (L) 37.0 - 47.0 % [facility] MCV 84.0 82.0 - 100.0 fL [facility] MCH 26.6 (L) 27.0 - 34.0 pg [facility] MCHC 31.7 31.0 - 37.0 g/dL [facility] RDW - SD 48.1 37.0 - 55.0 fL [facility] MPV 10.2 8.8 - 13.2 fL [facility] Platelet count 251 150 - 400 k/uL [facility] Nucleated RBC 0.00 /100 WBC [facility] Neutrophils 51.0 39.0 - 69.0 % [facility] Lymphocytes 34.0 25.0 - 45.0 % [facility] Monocytes 13.0 (H) 0.0 - 10.0 % [facility] Eosinophils 2.0 0.0 - 5.0 % [facility] Basophils 0.0 0.0 - 1.0 % [facility] Specimen Blood Performing Organization Address City/State/Zipcode Phone Number [facility] DEPARTMENT OF PATHOLOGY AND [address] [place] [address] [phone] [place] [id number] [place] [address] Estimated GFR (11/15/2019 4:00 AM CDT)Only the most recent of3 resultswithin the time period is included. Estimated GFR >=90 mL/min/1.73 [facility] Comment: m2 HOSPITAL Catergory Units Interpretation G1 [...] published in 2014. Specimen Performing Organization Address City/[facility] Phone Number [facility] DEPARTMENT OF PATHOLOGY AND [address] [place], [place] [address] [address] [address] Basic metabolic panel (11/15/2019 4:00 AM CDT)Only the most recent of2 results within the time period is included. Pathologist Sig nature Sodium 135 135 - 148 mEq/L [facility] Potassium 3.4 (L) 3.5 - 5.0 mEq/L [facility] Chloride 103 98 - 112 mEq/L [facility] CO2 21 (L) 24 - 31 mEq/L [facility] Anion gap 11@ANIO 7 - 15 mEq/L [facility] BUN 9 6 - 20 mg/dL [facility] Creatinine 0.48 (L) 0.50 - 0.90 mg/dL [facility] Glucose 95 65 - 99 mg/dL [facility] Calcium 9.2 8.3 - 10.2 mg/dL [facility] Specimen Blood Performing Organization Address City/[facility]/Zipcode Phone Number [facility] DEPARTMENT OF PATHOLOGY AND [address] [place] [phone] Continuous EEG monitoring (11/15/2019 1:22 AM CDT) [...] binding capacity (11/13/2019 4:00 AM CDT) Pathologist [facility] nature Iron level 20 (L) 37 - 145 ug/dL [facility] Iron binding capacity 335 200 - 400 ug/dL [facility] % Saturation 6.0 (L) 15.0 - 38.0 % [facility] Specimen Blood Performing Organization Address City/[facility] Phone Number [facility] DEPARTMENT OF PATHOLOGY AND [address] [place] [phone] Ferritin level (11/13/2019 4:00 AM CDT) Pathologist Sig nature Ferritin level <13 (A) 13 - 150 ng/mL [facility] Specimen Blood Performing Organization Address City/[facility] Phone Number [facility] DEPARTMENT OF PATHOLOGY AND [address] [place] [address] [phone] [address] MRI Brain W Wo Contrast (11/13/2019 2:16 [...] or cuco-ictal hyperperfusion to localize seizure focus. [facility]-[id number] Procedure Note [facility], Radiology Results Incoming - 11/13/2019 6:14 [...] or cuco-ictal hyperperfusion to localize seizure focus. [facility]-[id number] Performing Organization Address [facility]/Zipcode Phone Number [facility] [address] [place] [address] ECG 12 lead (11/12/2019 9:10 PM CDT) Pathologist [facility] nature Ventricular rate 81 [facility] MUSE Atrial rate 81 [facility] MUSE IA interval 164 [facility] MUSE QRSD interval 84 [facility]USE QT interval 386 [facility] QTC interval 448 [facility] MUSE P axis 1 52 [facility] MUSE QRS axis 1 4 [facility] MUSE T wave axis 13 [facility] MUSE EKG impression Normal sinus [facility] MUSE rhythm-Normal ECG-No previous ECGs available-Electronicall y Signed By Adrian Ibarra MD ([id number]) on 11/13/2019 8:07:25 PM Specimen Narrative Performed At This result has an attachment that is no t available. Performing Organization Address [facility] Phone Number [facility] MUSE [address] [place] [address] Syphilis total antibody (11/12/2019 7:40 PM CDT) [facility] Syphilis total Non-reactiveComment Non-reactive [facility] antibody : No serological HOSPITAL evidence of syphilis infection. Specimen Serum Performing Organization Address [facility] Phone Number [facility] DEPARTMENT OF PATHOLOGY AND [address] [place] [address] [phone] [address] HIV Ag/Ab combination (11/12/2019 7:40 PM CDT) [facility] HIV Ag/Ab combination Non-reactive Non-reactive [facility] Specimen Blood Performing Organization Address [facility]/Zipcode Phone Number [facility] DEPARTMENT OF PATHOLOGY AND [address] [place] [address] [phone] [address] Homocystine, plasma (11/12/2019 7:40 PM CDT) Pathologist [facility] Homocysteine 10.3 0.0 - 15.0 [facility] Comment: [facility] The risk for coronary vascular disease increases progr essively with homocysteine concentration. A 3.4 times greater risk is associated with a homocysteine concentration of greate r than 15.8 umol/L as compared to a concentration below 14.1 umol/L. Specimen Blood Performing Organization Address City/[facility]/Zipcode Phone Number [facility] DEPARTMENT OF PATHOLOGY AND [address] [place] [address] [phone] [address] MARCELINO titer (11/12/2019 7:40 PM CDT) Pathologist Sig nature MARCELINO titer 1:160 (A) Not-Detected [facility] MARCELINO pattern Homogeneous (A) Not-Detected [facility] Specimen Blood Performing Organization Address [facility] Phone Number [facility] DEPARTMENT OF PATHOLOGY AND [address] [place] [address] [phone] [address] Vitamin D 25 hydroxy level (11/12/2019 7:40 PM CDT) Vitamin D, 13.6 (L) 30.0 - 150.0 [facility] 25-hydroxy Comment: ng/mL HOSPITAL This assay reports [...] alternative methods. Specimen Blood Performing Organization Address City/[facility]/Zipcode Phone Number [facility] DEPARTMENT OF PATHOLOGY AND [address] [place] [address] [phone] [address] Prolactin level (11/12/2019 7:40 PM CDT) Pathologist Sig nature Prolactin 22 5 - 23 ng/mL [facility] Specimen Performing Organization Address City/[facility] Phone Number [facility] DEPARTMENT OF PATHOLOGY AND [address] [place] [address] [place] [phone] Sedimentation rate (11/12/2019 7:40 PM CDT) Pathologist Sig nature Sedimentation rate 9 0 - 20 mm/hr [facility] Specimen Blood Performing Organization Address [facility] Phone Number [facility] DEPARTMENT OF PATHOLOGY AND [address] [place] [address] [place] [phone] Rheumatoid factor (11/12/2019 7:40 PM CDT) Pathologist Sig [facility] Rheumatoid factor <10 0 - 13 IU/mL [facility] Specimen Blood Performing Organization Address [facility] Phone Number [facility] DEPARTMENT OF PATHOLOGY AND [address] [place] [address] [place] [phone] C-reactive protein (11/12/2019 7:40 PM CDT) Pathologist Sig nature CRP <0.30 0.00 - 0.50 mg/dL [facility] Specimen Blood Performing Organization Address [facility] Phone Number [facility] DEPARTMENT OF PATHOLOGY AND [address] [place] [address] [place] [phone] MARCELINO (11/12/2019 7:40 PM CDT) MARCELINO screen Positive (A) Negative [facility] Comment: HOSPITAL Test performed using [employer]ite DAPI MARCELINO kit (Indirect Immunofluorescence Assay) for Anti-Nuclear Antibody on [employer] 160 Analyzer. Specimen Blood Performing Organization Address [facility] Phone Number [facility] DEPARTMENT OF PATHOLOGY AND [address] [place] [phone] Thyroid stimulating hormone (11/12/2019 7:40 PM CDT) Pathologist Sig nature TSH 2.21 0.27 - 4.20 uIU/mL [facility] Specimen Blood Performing Organization Address [facility]/State/[facility] Phone Number [facility] DEPARTMENT OF PATHOLOGY AND [address] [place] [phone] [place] [address] T4, free (11/12/2019 7:40 PM CDT) Pathologist Sig [facility] T4, free 1.2 0.9 - 1.7 ng/dL [facility] Specimen Blood Performing Organization Address City/[facility] Phone Number [facility] DEPARTMENT OF PATHOLOGY AND [address] [place] [address] [place] [phone] Folate level (11/12/2019 7:40 PM CDT) Pathologist Sig [facility] Folate 9.3 4.8 - 24.2 ng/mL [facility] Specimen Serum Performing Organization Address [facility] Phone Number [facility] DEPARTMENT OF PATHOLOGY AND [address] [place] [phone] [place] [phone] Vitamin B12 level (11/12/2019 7:40 PM CDT) Vitamin B12 [phone] [facility] Comment: pg/mL HOSPITAL Significant overlap exists between normal and deficien cy states. However, most patients with deficiencies will have Ser um B12 <200 pg/mL. Specimen Serum Performing Organization Address [facility] Phone Number [facility] DEPARTMENT OF PATHOLOGY AND [address] [place] [phone] [place] [phone] Creatine kinase, total (CPK) (11/12/2019 7:40 PM CDT) Pathologist Sig [facility] Creatine kinase 56 26 - 192 U/L [facility] Specimen Performing Organization Address [facility]/Zipcode Phone Number [facility] DEPARTMENT OF PATHOLOGY AND [address] [place] [phone] [place] [phone] Cortisol level, random (11/12/2019 7:40 PM CDT) Cortisol, random 2 ug/dL [facility] Comment: HOSPITAL Reference Ranges are not established for non-timed Cor tisol levels. Reference Range for Timed Cortisol: 6 - 10 AM 6 - 18 ug/d l 4 - 8 PM 3 - 11 ug/ dl Specimen Blood Performing Organization Address City/State/Zipcode Phone Number [facility] DEPARTMENT OF PATHOLOGY AND [address] [place] [phone] GENOMIC MEDICINE [facility] [address] [place] [address] CT Cervical Spine Wo Contrast (11/12/2019 6:12 [...] subluxation identif ied in the cervical spine. [id number] Procedure Note Interface, Radiology Results Incoming - [...] subluxation identif ied in the cervical spine. [facility]-[id number] Performing Organization Address [facility] Phone Number [facility] [address] [place] [address] CT Maxillofacial Wo Contrast (11/12/2019 6:09 PM [...] unre markable. The paranasal sinuses are clear. [facility]-[id number] Procedure Note Hm Interface, Radiology Results Incoming [...] unre markable. The paranasal sinuses are clear. [facility]-[id number] Performing Organization Address [facility] Phone Number [facility] [address] [place] [address] CT Head Wo Contrast (11/12/2019 6:09 PM [...] IMPRESSION: No acute intracranial abnormality identi fied. [id number] Procedure Note [facility], Radiology Results Incoming - 11/12/2019 6:14 PM [...] IMPRESSION: No acute intracranial abnormality identi fied. [facility]-[id number] Performing Organization Address [facility] Phone Number [facility] [address] [place] [address] XR Chest 1 Vw Portable (11/12/2019 5:35 [...] There is no acute cardiopulmonary dis ease. [id number] Procedure Note [facility], Radiology Results Incoming - 11/12/2019 5:40 PM [...] There is no acute cardiopulmonary dis ease. [id number] Performing Organization Address [facility] Phone Number [facility] [address] [place] [address] Keppra (Levetiracetam) level (11/12/2019 5:04 PM CDT) Pathologist [facility] Levetiracetam 30 12 - 46 ug/mL [facility] Comment: INTERPRETIVE INFORMATION: Keppra (Levetiracetam) Therapeutic Range: 12-46 ug/mL Toxic: Not well Established Pharmacokinetics of levetiracetam are affected by lamberto l function. Adverse effects may include somnolence, weakness, head ache and vomiting. This levetiracetam (Keppra) immunoassay uses the [employer] reagents, which has known cross-reactivity with the dr norma collinsracetam (Briviact) and may report inaccurate resu lts. Patients transitioning from levetiracetam to brivarace goldstein or those who are using both medications should not monitor drug concentrations with the [employer] assay. These p atients should be monitored using a validated chromatographic methodology that distinguishes between drugs to determine drug con centrations. Performed by [employer], [address] [place] [id number] [email or web address], Josué Barreto MD, Lab. Director Specimen Serum Performing Organization Address City/[facility]/Zipcode Phone Number [facility] [address] [place] [address] [place] [facility] [address] [place] [address] Alcohol level, blood (11/12/2019 5:04 PM CDT) [facility] Alcohol None Detected mg/dL [facility] Comment: HOSPITAL Normal None Detected Legal Intoxication in [place] 80 mg/dL (0.08%) - Whole Blood Toxic Concentration 200 mg/dL (0.2%) Potentially Fatal 350 - 500 mg/dL (0. 35 - 0.5%) Alcohol percent None Detected % [facility] Specimen Blood Performing Organization Address City/[facility]/Zipcode Phone Number [facility] DEPARTMENT OF PATHOLOGY AND [address] [place] [phone] GENOMIC MEDICINE [address] [address] Comprehensive metabolic panel (11/12/2019 5:04 PM CDT) [facility] Sodium 142 135 - 148 [facility] mEq/L [facility] Potassium 3.7 3.5 - 5.0 [facility] mEq/L [facility] Chloride 106 98 - 112 [facility] mEq/L [facility] CO2 22 (L) 24 - 31 mEq/L [facility] Anion gap 14@ANIO 7 - 15 mEq/L [facility] BUN 4 (L) 6 - 20 mg/dL [facility] Creatinine 0.60 0.50 - 0.90 [facility] mg/dL HOSPITAL Glucose 98 65 - 99 mg/dL [facility] Calcium 9.4 8.3 - 10.2 [facility] mg/dL [facility] Protein 7.2 6.3 - 8.3 [facility] Comment: g/dL [facility] [place] 4.6-7.0 g/dL 1 week 4.4-7.6 g/dL 7 months-1year 5.1-7.3 g/dL 1-2 years 5.6-7.5 g/dL >3 years 6.0-8.0 g/dL 18-150 6.3-8.3 g/dL Albumin 3.7 3.5 - 5.0 [facility] g/dL HOSPITAL A/G ratio 1.1 0.7 - 3.8 [facility] Alkaline phosphatase 79 35 - 104 U/L [facility] AST 29 10 - 35 U/L [facility] ALT 39 5 - 50 U/L [facility] Total bilirubin <0.2 0.0 - 1.2 [facility] mg/dL [facility] Specimen Blood Performing Organization Address City/State/Zipcode Phone Number [facility] DEPARTMENT OF PATHOLOGY AND [address] [place] [phone] GENOMIC MEDICINE [address] [address] Urinalysis screen and microscopy, with reflex to culture (11/12/2019 2:44 PM CDT) Specimen site Clean catch [facility] Color, UA Straw [facility] Appearance, UA Hazy [facility] Specific gravity, UA 1.020 1.001 - 1.035 [facility] pH, UA 8.0 5.0 - 8.5 [facility] Protein, UA Negative Negative [facility] Glucose, UA Negative Negative [facility] Ketones, UA Negative Negative [facility] Bilirubin, UA Negative Negative [facility] Blood, UA Negative Negative [facility] Nitrite, UA Negative Negative [facility] Urobilinogen, UA <2.0 <2.0 [facility] Leukocyte esterase, Negative Negative [facility] Epithelial cells, UA 6 /HPF [facility] WBC, UA <1 0 - 4 /HPF [facility] RBC, UA None seen 0 - 5 /HPF [facility] Bacteria, UA Few None seen [facility] Yeast, UA None seen [facility] Yeast with None seen [facility] pseudohyphae, UA HOSPITAL Specimen Urine Performing Organization Address City/[facility] Phone Number [facility] DEPARTMENT OF PATHOLOGY AND [address] [place] [address] [phone] [address] hCG qualitative, urine screen (11/12/2019 2:44 PM CDT) hCG qualitative, NegativeComment: [facility] urine Sensitivity of [facility] test: 25 mIU/mL Specimen Urine Performing Organization Address City/[facility] Phone Number [facility] DEPARTMENT OF PATHOLOGY AND [address] [place] [address] [phone] [address] Urine drugs of abuse screen (11/12/2019 2:44 PM CDT) Amphetamine screen, Negative KIRVIN urine [facility] Barbiturate screen, Negative [facility] urine [facility] Benzodiazepine Negative [facility] screen, urine [facility] Cocaine screen, urine Negative [facility] Methadone metabolite Negative KIRVIN (EDDP), urine [facility] Opiates screen, urine Negative [facility] Oxycodone screen, Negative [facility] urine [facility] Phencyclidine screen, Negative [facility] urine [facility] Tricyclic screen, Negative [facility] urine [facility] Cannabinoid screen, Negative [facility] urine Comment: [facility] Drug screen minimum concentration of detectability HOSPITAL [...] Urine Performing Organization Address City/State/Zipcode Phone Number [facility] DEPARTMENT OF PATHOLOGY AND [address] [place], [place] [phone] [facility] [address] [place] [address] Urine culture (11/12/2019 2:44 PM CDT) Pathologist Sig nature Urine culture SEE COMMENTComment: [facility] Bacteriuria screen HOSPITAL negative. Specimen Performing Organization Address City/State/Zipcode Phone Number [facility] DEPARTMENT OF PATHOLOGY AND [address] [place] [phone] [facility] [address] [place] [address] after 02/11/2019 [id number] 1 Advance Directives For more information, please contact: [phone] Type Date Recorded Patient Forensic Science Examiner Explanati on Advance Directives, Living Will and Medical Power of Children'S Service Supervisor
--- OUTSIDE RECORDS SUMMARY | 2020-02-12 10:04 | XMS REPORT | Continuity of Care Document ---
:1990 Author Organization [facility] t Address [address] [place] [address] Care Team Providers Name Role Phone Asked, Pcp Primary Care Physician Unavailable Jung TAYLOR, A Attending Clinician Unavailable Maximino Palomino Attending Clinician Doctor Unassigned, Name Attending Clinician Unavailable Adrianne Hansen Attending Clinician Rita SABA Attending Clinician Lory MENDOZA Attending Clinician Di TAYLOR Attending Clinician Unavailable Adolfo Bailey MD Attending Clinician Alissa MENDOZA Attending Clinician Liana MENDOZA, Michaelazsong Attending Clinician Aleksandar MENDOZA Attending Clinician Magda Adam MD Attending Clinician BRANDO RODAS Attending Clinician Unavailable ALISSA Admitting Clinician Unavailable Juliano DEJESUS Admitting Clinician Unavailable Payers Payer Name Policy Type Policy Number Effective Date Expiration Date Moses basurto CIGNACIGNA OPEN xxxxxxxxxxx 2019 [place] ACCESS/NETWORKxx 00:00:00 Methodis t 0-PresentHMO MEDICAIDMEDICAID xxxxxxxxx 2019 [place] 00:00:00 Methodis t 0-PresentMedicai d Problems Condition Condition Condition Status Onset Resolution Last Treating Co mments Source Name Details Category Date Date Treatment Clinician Date Seizure Seizure Disease Active [place] 11-11 [facility]: st 00 Hypokalemi Hypokalemi Disease Active 2016-[address] [facility] 00 [place] Acute Acute Disease Active 2016-[address] [facility] [address] encephalop encephalop 1-30 [place] kes - athy athy 00:00: Medical 00 [place] Seizure Seizure Disease Active 2016-[address] [facility] [address] disorder disorder -30 [facility] 00 [place] Leukocytos Leukocytos Disease Active 2016-[address] [facility] is 1-30 [facility] 00 [place] Less than Less than Disease Active 2016-[address] [facility] [address] 8 weeks 8 weeks 1-30 [facility] - gestation gestation 00:00: Medi jes[facility] of of 00 Center Allergies, Adverse Reactions, Alerts Allergy Allergy Status Severity Reaction(s) Onset Inactive Treating Comm ents Source Name Type Date Date Clinician No Known DA Active U [facility] 9[facility]11 [place] [facility] 00:[facility]: d Medical [place] No Known DA Active U 2016-06 [facility] Allergie 24 [facility] 00:00: [address] Social History Social Habit Start Date Stop Date Quantity Comments Source Sex Assigned At [place] M ethodist Exposure to Not sure [place] Metho dist SARS-CoV-2 (event) Alcohol intake 2019-11-12 2019-11-12 Ex-drinker [facility] thodist 00:00:00 00:00:00 (finding) Smoking Status [...] Take 1 Nunez complex-vit 11-14 tablet by Mn thodi carter 00:00: 23:[address] C-folic [...] blood 2019-11-15 12:02:13 114 mm[Hg] Sonjato n [facility] pressure Diastolic blood 2019-11-15 12:02:13 74 mm[Hg] Julee on [facility] pressure Heart rate 2019-11-15 12:02:13 93 /min Enrique Piedra Body temperature 2019-11-15 12:02:13 36.78 Melody Sonja ton [facility] Respiratory rate 2019-11-15 12:02:13 18 /min Sonja [...] PLATELET AND 2019-11-13 04:00:00 Caesar Maxwell on [facility] DIFFERENTIAL BASIC METABOLIC PANEL 2019-11-13 04:00:00 Caesar Maxwell on [facility] TOTAL IRON BINDING 2019-11-13 04:00:00 Caesar Maxwell CAPACITY FERRITIN LEVEL 2019-11-13 04:00:00 Caesar Maxwell Met hodist ESTIMATED GFR 2019-11-13 04:00:00 Caesar Maxwell Met hodist MANUAL DIFFERENTIAL 2019-11-13 04:00:00 Caesar Maxwell MRI BRAIN W WO CONTRAST 2019-11-13 02:16:00 Bina Bonds CONSULT TO OSTOMY CARE 2019-11-12 23:40:27 Caesar Maxwell [facility] NURSE ECG 12-LEAD 2019-11-12 21:10:47 Bina Bonds MARCELINO 2019-11-12 19:40:00 Bina Bonds FOLATE LEVEL 2019-11-12 19:40:00 Bina Bonds VITAMIN B12 LEVEL 2019-11-12 19:40:00 Bina Bonds [facility] C-REACTIVE PROTEIN 2019-11-12 19:40:00 Bina Bonds on [facility] HOMOCYSTINE, PLASMA 2019-11-12 19:40:00 Bina Bonds [facility] CORTISOL LEVEL, RANDOM 2019-11-12 19:40:00 Bina Bonds [facility] SEDIMENTATION RATE 2019-11-12 19:40:00 Bina Bonds on [facility] RHEUMATOID FACTOR 2019-11-12 19:40:00 Bina Bonds [facility] THYROID STIMULATING 2019-11-12 19:40:00 Bina Bonds [facility] HORMONE T4, FREE 2019-11-12 19:40:00 Bina Bonds SYPHILIS TOTAL ANTIBODY 2019-11-12 19:40:00 Bina Bonds HIV AG/AB COMBINATION 2019-11-12 19:40:00 Bina Bonds [facility] VITAMIN D 25 HYDROXY 2019-11-12 19:40:00 Bina Bonds [facility] LEVEL CREATINE KINASE, TOTAL 2019-11-12 19:40:00 Shari Bailey on [facility] (CPK) Adolfo PROLACTIN LEVEL 2019-11-12 19:40:00 Shari Bailey Meth odist Adolfo MARCELINO TITER 2019-11-12 19:40:00 Shari Bailey Meth odist Adolfo CT CERVICAL SPINE WO 2019-11-12 18:12:54 Bailey, Shari Nunez [facility] CONTRAST Adolfo CT MAXILLOFACIAL WO 2019-11-12 18:09:40 BaileyManas chasemayda Nunez [facility] CONTRAST Adolfo CT HEAD WO CONTRAST 2019-11-12 18:09:19 BaileyManas chasemayda Nunez [facility] Adolfo XR CHEST 1 VW PORTABLE 2019-11-12 17:35:36 Shari Bailey on [facility] Adolfo HC COMPLETE BLD COUNT 2019-11-12 17:04:00 Shari Bailey [facility] W/AUTO DIFF Adolfo COMPREHENSIVE METABOLIC 2019-11-12 17:04:00 Shari Bailey [facility] PANEL Adolfo ALCOHOL LEVEL, BLOOD 2019-11-12 17:04:00 Shari Bailey [facility] Adolfo KEPPRA (LEVETIRACETAM) 2019-11-12 17:04:00 Shari Bailey on [facility] LEVEL Adolfo ESTIMATED GFR 2019-11-12 17:04:00 Leo Sharimayda Nunez Meth odist Adolfo URINE CULTURE 2019-11-12 14:44:00 Keanu Flores Meth odist URINALYSIS SCREEN AND 2019-11-12 14:44:00 Keanu Flores [facility] MICROSCOPY, WITH REFLEX TO CULTURE HCG QUALITATIVE, URINE 2019-11-12 14:44:00 Keanu Flores on [facility] SCREEN URINE DRUGS OF ABUSE 2019-11-12 14:44:00 Keanu Flores [facility] SCREEN Plan of Care Planned Activity Planned Date Details Comments Source Future Scheduled 2020-03-15 INFLUENZA VACCINE Luz pinzon [facility] Test 00:00:00 [code = INFLUENZA VACCINE] Future Scheduled 2010 Screening for Enrique Parks thodist Test 00:00:00 malignant neoplasm of cervix (procedure) [code = 658396565] Encounters Start End Encounter Admission Attending Care Care Encounter Source Date/Time Date/Time Type Type Clinicians Facility Department ID 2020-01-18 2020-01-18 Transition Marlyn Fengalberta [id number] 00:00:00 00:00:00 of Care Adair Starksy [id number] [place] 4.2.7.2.686 [id number] 2020-01-16 2020-01-17 Emergency [facility] [id number] 22:16:00 00:53:00 Pamela Leach [id number] [place] 4.2.7.2.686 [place] [id number] 2020-01-16 2020-01-16 Orders Doctor ELVIA [id number] 00:00:00 00:00:00 Only Unassigned, MICHAELLE 350.1.13.10 [place] [address]686 [id number] 2019-11-29 2019-11-29 [facility] [id number] 13:51:42 18:42:00 Brittany Leach 350.1.13.10 [place] 4.2.7.2.686 [place] [id number] [id number] 2019-11-29 2019-11-29 Telephone [facility] [id number] 00:00:00 00:00:00 Cecilia Leach [id number] [place] [address] [facility] [id number] [address] 2019-11-29 2019-11-29 Orders Doctor ELVIA 1.2.840.114 [id number] 00:00:00 00:00:00 Only Unassigned, MICHAELLE 350.1.13.10 [place] [address]686 [id number] 2019-11-12 2019-11-15 Inpatient LIANA, [facility] [id number] [place] 00:00:00 00:00:[address] 2019-10-24 2019-10-24 Hospital Aleksandar . [id number] 14:33:37 23:59:00 Encounter [facility]j [facility] 350.1.13.10 MEDICAL 4.2.7.2.686 [place] [id number] 2019-10-11 2019-10-11 Refill Rita [facility] [id number] 00:00:00 00:00:00 Cecilia Hany 350.1.13.10 [place] 4.2.7.2.686 Professio [id number] [address] 2019-10-06 2019-10-06 Telemedici Rita [facility] [id number] 08:13:12 15:30:52 ne Visit Cecilia Carcamoton 350.1.13.10 [place] 4.2.7.2.686 Professio [id number] [address] 2019-08-12 2019-08-12 Case [facility] [id number] 00:00:00 00:00:00 Management Daina Carcamoton 350.1.13.10 [place] 4.2.7.2.686 Professio [id number] [address] 2019-08-12 2019-08-12 Telephone Ad, [facility] [id number] 00:00:00 00:00:00 Daina Leach 350.1.13.10 [place] 4.2.7.2.686 Professio [id number] [address] 2019-08-10 2019-08-10 [facility] [id number] 14:12:35 15:35:54 Visit Daina Man Hany 350.1.13.10 [place] 4.2.7.2.686 Professio [id number] [address] Results Test Description Test Test Results Result Source Time Comments Comments Continuous EEG 2019-11- CONTINUOUS VIDEO-EEG [place] monitoring [address] 17:34:53 [...] Comme nts MARCELINO titer (test code = 91092-1) 1:160 Not-Detected A MARCELINO pattern (test code = 76558-4) Homogeneous Not-Detected A Lab Interpretation (test code = 56866-8) Abnormal Enrique YbupaoddrMYT1768-95-78 13:08:33 Test Item Value Reference Range Interpretation Comments MARCELINO screen (test code Positive Negative A Test p erformed using = 550) NOVA [employer] DAPI MARCELINO kit (Indirect Immunofluoresce nce Assay) for Anti -Nuclear Antibody on [employer] 16 0 Analyzer. Lab Interpretation Abnormal (test code = 31670-6) Nunez MethodistCBC with platelet and kfwzqhljygmz1927-54-95 08:57:11 Test Item Value Reference Range Interpretation Comments WBC (test code = 34782-5) 7.99 4.50- 11.00 k/uL RBC (test code = 12070-5) 4.06 m/uL 4.2-5.5 L HGB (test code = 718-7) 10.8 g/dL 12-16 L HCT (test code = 4544-3) 34.1 % 37-47 L MCV (test code = 787-2) 84.0 fL 82-100 MCH (test code = 785-6) 26.6 pg 27-34 L MCHC (test code = 786-4) 31.7 g/dL 31-37 RDW - SD (test code = 76490-9) 48.1 fL 37-55 MPV (test code = 13421-2) 10.2 fL 8.8-13.2 Platelet count (test code = 251 150- 400 k/uL 40336-1) Nucleated RBC (test code = 0.00 /100 WBC 39726-7) Neutrophils (test code = 98898-9) 51.0 % 39-69 Lymphocytes (test code = 12979-4) 34.0 % 25-45 Monocytes (test code = 23500-5) 13.0 % 0-10 H Eosinophils (test code = 56021-4) 2.0 % 0-5 Basophils (test code = 55193-6) 0.0 % 0-1 Lab Interpretation (test code = Abnormal 87268-0) [place] MethodistManual akidvpxzasos7462-93-83 08:57:11 Test Item Value Reference Range Interpretation Comments Manual differential (test code = PERFORMED 04071-1) Neutrophils (test code = 51.0 % 39-69 51805-3) Lymphocytes (test code = 34.0 % 25-45 96397-1) Monocytes (test code = 43510-4) 13.0 % 0-10 H Eosinophils (test code = 2.0 % 0-5 87056-5) Basophils (test code = 63262-6) 0.0 % 0-1 Metamyelocytes (test code = 0 % 740-1) Promyelocytes (test code = 0 % 783-1) Platelet slide review (test code Sana adequate = 95627-2) Anisocytosis (test code = 702-1) Moderate Ovalocytes (test code = 774-0) Moderate Enlarged platelets (test code = Moderate A 98557-2) Lab Interpretation (test code = Abnormal 65939-9) [place] MethodistContinuous EEG ytewzwdvay3008-51-77 07:42:19CONTINUOUS VIDEO- EEG MONITORING REPORT Patient Name: [...] seizures occurred. ICD-10 Code: R56.9[place] MethodistBasic metabolic ivgms0301-93-56 06:44:31 Test Item Value Reference Range Interpretation Comments Sodium (test code = 2951-2) 135 135- 148 mEq/L Potassium (test code = 2823-3) 3.4 3.5- 5.0 mEq/L L Chloride (test code = 2075-0) 103 98- 112 mEq/L CO2 (test code = 8-9) 21 24- 31 mEq/L L Anion gap (test code = 59278-3) 11@ANIO 7- 15 mEq/L BUN (test code = 3094-0) 9 mg/dL 6-20 Creatinine (test code = 2160-0) 0.48 mg/dL 0.5-0.9 L Glucose (test code = 2345-7) 95 mg/dL 65-99 Calcium (test code = 02507-6) 9.2 mg/dL 8.3-10.2 Lab Interpretation (test code = Abnormal 45415-3) Nunez MethodistEstimated [id number] 06:44:31 Test Item Value Reference Range Interpretation Comments Estimated GFR (test >=90 mL/min/1.73 m2 Haider wiggins Units code = 5488) InterpretationG 1 >=90 Normal or highG2 60-89 Mildly duudduryiQ3o 45-59 Mildly to mode rately mrbvkhlwtZ4g 30-44 Moderately to severely decreasedG4 15-29 Severely decre asedG5 <15 Kidn ey failureThe eGFR was calculated alyssa fortune the Chronic Kidney Disease Epidemiology Co llaboration (CKD-EPI) equat ion. Interpretation is based on recommendations of the National Kidney Foundation-Kidn ey Disease Outcomes Qualit y Initiative (NKF-KDOQI) pub lished in 2014. Enrique MethodistKeppra (Levetiracetam) zyqys0628-83-52 05:29:41 Test Item Value Reference Interpretation Comments Range Levetiracetam 30 ug/mL 12-46 INTERPRETIVE I NFORMATION: (test code = Keppra 4478-4) (Levetiracetam) Therapeutic Range: 12-46 u g/mL Toxic: Not wel l EstablishedPhar macokinetics of levetiracetam a re affected by renal function. Adverse effects may include andi nolence, weakness, heada justus and vomiting.This l evetiracetam (Keppra) immuno assay uses the [employer] reagents, which has known cross -reactivity with the drug brivar acetam (Briviact) and may report inaccurate resu lts. Patients transitioning f rom levetiracetam t o brivaracetam or those who ar e using both medications alejandra uld not monitor drug concentrat ions with the [employer] assay. These patients should be monitored using a validat ed chromatographic methodology that distinguis hes between drugs to determ ine drug concentrations. Performed by [facility] ,[address] [address] 08 hmm .[employer], Josué Barreto MD, Lab. Director Enrique CruzistVitamin D 25 hydroxy jvrgh7702-05-18 15:46:04 Test Item Value Reference Range Interpretation [...] hods. Lab Interpretation Abnormal (test code = 17779-1) [place] MethodistContinuous EEG jlgnxflmim0630-67-23 07:19:24 CONTINUOUS VIDEO-EEG MONITORING REPORT Patient Name: [...] regions independently. No seizures occurred. ICD-10 Code: R56.9[facility] EEG (routine) - Baseline [id number] 06:43:32EEG RECORDING AWAKE & ASLEEP - Baseline [...] agree with the above findings. Richard Henley MDTexas County Memorial Hospitalmingo MethodistECG 12 ufbv7412-81-71 20:07:26 Test Item Value Reference Range Interpretation [...] available-Electronica lly Signed By Adrian Ibarra MD ([id number]) on 11/13/2019 8:07:25 PM Nunez MethodistSyphilis total xalwfgzu0846-84-07 10:13:08 Test Item Value Reference Range Interpretation Comments Syphilis total Non-reactive Non-reactive No serologica l antibody (test code evidence of syphilis = 6194) infection. [place] MethodistFerritin urspo1965-94-82 07:54:01 Test Item Value Reference Range Interpretation Comments Ferritin level (test code = 2276-4) <13 13-150 A Lab Interpretation (test code = Abnormal 87831-3) Nunez MethodistTotal iron binding aidhbyor7278-55-04 07:50:12 Test Item Value Reference Range Interpretation Comments Iron level (test code = 2498-4) 20 ug/dL 37-145 L Iron binding capacity (test code = 335 ug/dL 451-500 8109-7) % Saturation (test code = 2502-3) 6.0 % 15-38 L Lab Interpretation (test code = Abnormal 82365-7) [place] NancyistMRI Brain W Wo Zjavdcuw4199-25-30 06:11:14Hm Interface, Radiology Results - 11/13/2019 6:14 [...] hypoperfusion or cuco-ictal hyperperfusion to localize seizure focus.[facility]-[id number] MethodistSedimentation rate 2019-11-12 22:03:32 Test Item Value Reference Range Interpretation Comments Sedimentation rate (test code = 9 0- 20 mm/hr 76275-0) [facility]Ab aeycprjtyrg7479-08-68 21:46:22 Test Item Value Reference Range Interpretation Comments HIV Ag/Ab combination (test code Non-reactive Non-reactive = 5299) [facility] ShorelineVitamin B12 juikt3619-57-18 20:56:33 Test Item Value Reference Range Interpretation Comments Vitamin B12 (test 466 pg/mL 211-946 Significan t overlap code = 2132-9) exists betwee n normal and deficiency states.However, most patients with deficiencies wi ll have Serum B12 <2 00 pg/mL. [place] MethodistFolate iuyjq8212-02-66 20:56:33 Test Item Value Reference Range Interpretation Comments Folate (test code = 2284-8) 9.3 ng/mL 4.8-24.2 [facility] HospitalistT4, kvpi2147-43-31 20:48:50 Test Item Value Reference Range Interpretation Comments T4, free (test code = 3024-7) 1.2 ng/dL 0.9-1.7 [facility] ShorelineCortisol level, tvnokz1495-25-81 20:48:37 Test Item Value Reference Range Interpretation Comments Cortisol, random 2 ug/dL Reference R anges are not (test code = 2143-6) establi shed for non-timed Cortisol levels .Reference Range for Timed Cortisol: 6 - 10 AM 6 - 18 ug/dl 4 - 8 PM 3 - 11 ug/ dl [facility] ShorelineThyroid stimulating bvuqaxo3634-07-34 20:48:37 Test Item Value Reference Range Interpretation Comments TSH (test code = 3016-3) 2.21 0.27- 4.20 uIU/mL [place] MethodistProlactin inadt7808-63-91 20:48:36 Test Item Value Reference Range Interpretation Comments Prolactin (test code = 2842-3) 22 ng/mL 5-23 [place] MethodistCreatine kinase, total (CPK)2019-11-12 20:42:35 Test Item Value Reference Range Interpretation Comments Creatine kinase (test code = 2157-6) 56 U/L 26-192 [place] MethodistC-reactive kadamau0146-94-83 20:42:35 Test Item Value Reference Range Interpretation Comments CRP (test code = 1988-) <0.30 0-0.5 [place] MethodistRheumatoid yijaks9334-16-45 20:36:01 Test Item Value Reference Range Interpretation Comments Rheumatoid factor (test code = 13781-7) <10 0- 13 IU/mL [place] MethodistHomocystine, einssh1386-04-67 20:36:01 Test Item Value Reference Range Interpretation Comments Homocysteine (test 10.3 umol/L 0-15 The risk for coronary code = 34246-4) vascular dis ease increases progressively w ith homocysteine concentration. A 3.4 times greater r isk is associated wit h a homocysteine concentration o f greater than 15.8 umol/L as carlin red to a concentration below 14.1 umol/L. [place] MethodistCT Cervical Spine Wo Voqyqvpz5523-13-50 18:17:20Hm Interface, Radiology Results 11/12/2019 6:20 PM [...] fracture or subluxation identified in the cervical spine.[facility]-[id number] MethodistCT Maxillofacial Wo Leibbcwi4897-46-54 18:15:46Hm Interface, Radiology Results 11/12/2019 6:18 PM [...] soft tissues are unremarkable.The paranasal sinuses are clear.[facility]0AS30727BEHkkpgti [facility] CT Head Wo Idmsxdfq9784-32-85 18:11:26Hm Interface, Radiology Results 11/12/2019 6:14 PM [...] air cells are clear.IMPRESSION:No acute intracranial abnormality identified.[id number] MethodistComprehensive metabolic cumdt4858-17-42 18:10:58 Test Item Value Reference Range Interpretation Comments Sodium (test code = 142 135- 148 mEq/L 2951-2) Potassium (test code = 3.7 3.5- 5.0 mEq/L 2823-3) Chloride (test code = 106 98- 112 mEq/L 2075-0) CO2 (test code = 8-9) 22 24- 31 mEq/L L Anion gap (test code = 14@ANIO 7- 15 mEq/L 14999-6) BUN (test code = 3094-0) 4 mg/dL 6-20 L Creatinine (test code = 0.60 mg/dL 0.5-0.9 2160-0) Glucose (test code = 98 mg/dL 65-99 2345-7) Calcium (test code = 9.4 mg/dL 8.3-10.2 50028-2) Protein (test code = 7.2 g/dL 6.3-8.3 -[place] n 2885-2) 4.6-7.0 g/dL1 week 4.4-7 .6 g/dL7 months-1y ear 5.1-7 .3 g/dL1-2 years 5.6-7 .5 g/dL>3 years 6.0-8 .0 g/mE50-992 6.3-8 .3 g/dL Albumin (test code = 3.7 g/dL 3.5-5 1751-7) A/G ratio (test code = 1.1 0.7-3.8 1759-0) Alkaline phosphatase 79 U/L 35-104 (test code = 6768-6) AST (test code = 1920-8) 29 U/L 10-35 ALT (test code = 1742-6) 39 U/L 5-50 Total bilirubin (test <0.2 0-1.2 code = 1974-2) Lab Interpretation (test Abnormal code = 88146-3) [place] MethodistAlcohol level, rwptw9195-40-31 18:06:03 Test Item Value Reference Range Interpretation Comments Alcohol percent None Detected % Normal (test code = None Detec tedLegal 5643-2) Intoxication in [place] 80 mg/dL (0.08% ) - Whole BloodToxi c Concentration 200 mg/dL (0.2%)Potential ly Fatal 350 - 500 mg/dL (0.35 - 0 .5%) [place] MethodistXR Chest 1 Vw Hpelpmpl2062-55-93 17:37:03Hm Interface, Radiology Results 11/12/2019 5:40 PM CDTEXAMINATION: XR CHEST 1 VW PORTABLECLINICAL HISTORY: SOBXR CHEST 1 VW PORTABLE images are submittedCOMPARISON: NONEFINDINGS:The cardiac silhouette is normal in size. The pulmonary vasculature is within normal limits. The lung zones have no focal area of consolidation. There is no pleural effusion or pneumothorax.IMPRESSION:1. Thereis no acute cardiopulmonary disease.[id number] [facility] Urinalysis screen and microscopy, with reflex to eaztcne2949-70-97 16:10:59 Test Item Value Reference Range Interpretation Comments Specimen site (test code = Clean catch 9414168) Color, UA (test code = 5778-6) Straw Appearance, UA (test code = Hazy 5767-9) Specific gravity, UA (test code = 1.020 1.001-1.035 5811-5) pH, UA (test code = 5803-2) 8.0 5.0-8.5 Protein, UA (test code = 67239-6) Negative Negative Glucose, UA (test code = 59019-3) Negative Negative Ketones, UA (test code = 2514-8) Negative Negative Bilirubin, UA (test code = Negative Negative 5770-3) Blood, UA (test code = 5794-3) Negative Negative Nitrite, UA (test code = 5802-4) Negative Negative Urobilinogen, UA (test code = <2.0 <2.0 95042-4) Leukocyte esterase, UA (test code Negative Negative = 5799-2) Epithelial cells, UA (test code = 6 /HPF 5787-7) WBC, UA (test code = 5821-4) <1 0- 4 /HPF RBC, UA (test code = 21664-0) None seen 0- 5 /HPF Bacteria, UA (test code = Few None seen 47838-0) Yeast, UA (test code = 98153-3) None seen Yeast with pseudohyphae, UA (test None seen code = 35372-6) Enrique PiedraUrine drugs of abuse ppglmu8433-02-23 15:33:59 Test Item Value Reference Interpretation Comments Range Amphetamine screen, Negative urine (test code = 3349-8) Barbiturate screen, Negative urine (test code = 3377-9) Benzodiazepine Negative screen, urine (test code = 3390-2) Cocaine screen, Negative urine (test code = 3397-7) Methadone Negative metabolite (EDDP), urine (test code = 35551-6) Opiates screen, Negative urine (test code = 3879-4) Oxycodone screen, Negative urine (test code = 06965-7) Phencyclidine Negative screen, urine (test code = 3936-2) Tricyclic screen, Negative urine (test code = 70920-3) Cannabinoid screen, Negative Drug scr een minimum [...] efinitive testing is requ ired. Enrique MethodistUrine ohwhjcm1621-17-81 15:28:27 Test Item Value Reference Range Interpretation Comments Urine culture (test SEE COMMENT Bacteriu landry screen code = 9605064) negative. Enrique MethodisthCG qualitative, urine tegiwj1203-70-22 15:26:18 Test Item Value Reference Range Interpretation Comments hCG qualitative, Negative Sensitivity of HCG test: urine (test code = 25 mIU/mL 2106-3) Enrique MethodistRPR Jbyxpzyheci6050-85-60 16:47:08 Test Item Value Reference Range Interpretation [...] = 06-14-2020 N Expiration Dt) Thyroid Stimulating Bovatoj2229-60-38 06:31:44 Test Item Value Reference Range Interpretation Comments TSH (test code = TSH) 3.830 mIU/mL 0.270-4.200 Lipid Hnhgj4221-67-50 06:24:40 Test Item Value Reference Range Interpretation Comments Cholesterol Total 152 mg/dL 0-200 RISK OF HE ART (test code = DISEASEPublishe d by Cholesterol Total) [employer] Marcelino lyte Optimal Borderl ine [...] LDL/HDL Ratio=L DL Calc/HDL Chol Urine Drug Alzwqm6882-33-34 21:53:06 Test Item Value Reference Range Interpretation [...] if desired . Urinalysis with Culture, if xnvefijbu1891-75-17 21:40:53 Test Item Value Reference Range Interpretation [...] Indicated Not Indicated Micro Ind?) Comprehensive Metabolic Fichu5632-97-35 21:34:15 Test Item Value Reference Range Interpretation [...] = A/G 1.6 ratio N Ratio) Alcohol Nfgzm4511-59-32 21:34:15 Test Item Value Reference Range Interpretation Comments Ethanol Level (test <0.00 g/dL 0.00-0.01 Intoxica vandana 0.080 g/dL code = Ethanol or more Level) Ethanol Inst (test <0 N code = Ethanol Inst) Comprehensive Metabolic Jaowl0225-61-20 21:34:15 Test Item Value Reference Range Interpretation [...] National Kidney Foundation, http://nkdep.ni h.gov Comprehensive Metabolic Iqdlf4378-78-43 21:34:15 Test Item Value Reference Range Interpretation [...] have not been validated by [facility] MDRD study and should be interpreted wit [...] have not been validated by [facility] MDRD study and should be interpreted wit h caution. eGFR R esult Interpretation: eGFR > or = 60 is in the Normal RangeeGF R < 60 may mean kid shannan diseaseeGFR < 1 5 may mean kidney failure Rang es recommended by the National Kidney Foundation, http://nkdep.ni h.gov Complete Blood Count with [id number] 21:15:24 Test Item Value Reference Range Interpretation [...] code = IPF) 0 % N Automated [id number] 21:15:24 Test Item Value Reference Range Interpretation Comments Neutro Auto (test code = Neutro 54.3 % 36.0-70.0 Auto) Lymph Auto (test code = Lymph Auto) 32.3 % 12.0-44.0 [place] Auto (test code = [place] Auto) 11.1 % 0.0-11.0 H Eos, Auto (test code = Eos, Auto) 1.3 % 0.0-7.0 Basophil Auto (test code = Basophil 0.7 % 0.0-2.0 Auto) Neutro Absolute (test code = Neutro 6.2 x10 1.6-7.4 Absolute) Lymph Absolute (test code = Lymph 3.71 x10 .50-4.60 Absolute) [place] Absolute (test code = [place] 1.28 x10 .00-1.20 H Absolute) Eos Absolute (test code = Eos 0.15 x10 0.00-0.74 Absolute) Baso Absolute (test code = Baso 0.08 x10 0.00-0.21 Absolute) IG [id number] 21:15:24 Test Item Value Reference Range Interpretation Comments IG (test code = IG) 0.3 % 0.0-5.0 IG Abs (test code = IG Abs) 0 x10 N HCG Qualitative [id number] 20:45:17 Test Item Value Reference Range Interpretation [...] 72 hours. Lot # (test code = [id number] N Lot #) Expiration Dt (test 2020-12-12 N code = Expiration Dt) Neg Control (test Negative code = Neg Control) Pos Control (test Positive code = Pos Control) Internal QC (test Acceptable code = Internal QC) RPR [id number] 12:07:58 Test Item Value Reference Range Interpretation [...] = 04-14-2020 N Expiration Dt) Thyroid Stimulating [id number] 07:59:52 Test Item Value Reference Range Interpretation Comments TSH (test code = TSH) 0.717 mIU/mL 0.270-4.200 Lipid [id number] 07:52:46 Test Item Value Reference Range Interpretation Comments Cholesterol Total 141 mg/dL 0-200 RISK OF HE ART (test code = DISEASEPublishe d by Cholesterol Total) [employer] Marcelino lyte Optimal Borderl ine [...] LDL/HDL Ratio=L DL Calc/HDL Chol Urine Drug [id number] 15:27:40 Test Item Value Reference Range Interpretation [...] matory test if desired . Comprehensive Metabolic [id number] 15:15:20 Test Item Value Reference Range Interpretation [...] A/G 1.9 ratio N Ratio) Comprehensive Metabolic [id number] 15:15:20 Test Item Value Reference Range Interpretation [...] the National Kidney Foundation, http://nkdep.ni h.gov Alcohol [id number] 15:15:20 Test Item Value Reference Range Interpretation Comments Ethanol Level (test <0.00 g/dL 0.00-0.01 Intoxica vandana 0.080 g/dL code = Ethanol or more Level) Ethanol Inst (test <0 N code = Ethanol Inst) Comprehensive Metabolic [id number] 15:15:20 Test Item Value Reference Range Interpretation [...] the National Kidney Foundation, http://nkdep.ni h.gov Urinalysis [id number] 15:11:20 Test Item Value Reference Range Interpretation Comments UA WBC (test code = UA WBC) 6-10 0-5 A UA RBC (test code = UA RBC) 0-5 0-5 UA Bacteria (test code = UA Moderate A Bacteria) UA Squam Epithelial (test code = UA TNTC A Squam Epithelial) UA Mucous (test code = UA Mucous) Few A Urinalysis with Microscopic if [id number] 14:42:58 Test Item Value Reference Range Interpretation [...] GL_SJM_UA_MICRO _IN D Complete Blood Count with [id number] 14:37:26 Test Item Value Reference Range Interpretation [...] code = IPF) 0 % N Automated [id number] 14:37:26 Test Item Value Reference Range Interpretation Comments Neutro Auto (test code = Neutro 65.8 % 36.0-70.0 Auto) Lymph Auto (test code = Lymph Auto) 25.5 % 12.0-44.0 [place] Auto (test code = [place] Auto) 7.3 % 0.0-11.0 Eos, Auto (test code = Eos, Auto) 0.7 % 0.0-7.0 Basophil Auto (test code = Basophil 0.5 % 0.0-2.0 Auto) Neutro Absolute (test code = Neutro 6.0 x10 1.6-7.4 Absolute) Lymph Absolute (test code = Lymph 2.34 x10 .50-4.60 Absolute) [place] Absolute (test code = [place] .67 x10 .00-1.20 Absolute) Eos Absolute (test code = Eos 0.06 x10 0.00-0.74 Absolute) Baso Absolute (test code = Baso 0.05 x10 0.00-0.21 Absolute) IG [id number] 14:37:26 Test Item Value Reference Range Interpretation Comments IG (test code = IG) 0.2 % 0.0-5.0 IG Abs (test code = IG Abs) 0 x10 N HCG Qualitative [id number] 14:34:08 Test Item Value Reference Range Interpretation [...] 72 hours. Lot # (test code = [id number] N Lot #) Expiration Dt (test 2020-03-14 N code = Expiration Dt) Neg Control (test Negative code = Neg Control) Pos Control (test Positive code = Pos Control) Internal QC (test Acceptable code = Internal QC) DRUGS OF ABUSE SCREEN [id number] 17:11:00 Test Item Value Reference Range Interpretation [...] = [place]) concentrati on: 300 ng/mL URINALYSIS [id number] 17:08:00 Test Item Value Reference Range Interpretation [...] (test code = MOD NONE BACU) URINALYSIS [id number] 17:00:00 Test Item Value Reference Range Interpretation [...] (test code = NONE BACU) HCG SERUM [id number] 16:52:00 Test Item Value Reference Range Interpretation Comments HCG SERUM QUAL (test code = HCGQL) NEGATIVE NEGATIVE - CT HEAD/BRAIN W/O [id number] 16:51:00 FAX: Theresa Fields MD [place]: St: REG Name: HEATHER HOPE [facility] : 1990 Age/S: 28/F [address] [facility] Unit: [id number] Loc: [place], [place]: [place] [address] Acct: [id number] Dis Date: Status: REG ER PHONE #: [phone] Exam Date: 02/23/2019 1642 FAX #: [phone] Reason: SEIZURE EXAMS: CPT CODE: [id number] CT HEAD/BRAIN W/O CONT 82660 Dictation location: U19. CT HEAD WITHOUT CONTRAST. [...] MD Technologist: HEATHER DICKSON Trnscrd Dt/Tm: 02/23/2019 (9363) [email or web address] Orig Print D/T: S: 02/23/2019 (0434 PAGE 1 Signed ReportBASIC METABOLIC [id number] 16:31:00 Test Item Value Reference Range Interpretation [...] CA) 8.8 mg/dl 8.0-10.5 N BASIC METABOLIC [id number] 16:26:00 Test Item Value Reference Range Interpretation [...] code = CA) mg/dl 8.0-10.5 CBC W/AUTO [id number] 16:15:00 Test Item Value Reference Range Interpretation [...] 3-60 N code = VLDL) RAPID PLASMA [id number] 10:31:00 Test Item Value Reference Range Interpretation Comments RAPID PLASMA REAGIN (test code = Nonreactive Nonreactive RPR) GLYCOSYLATED HEMOGLOBIN (HA1C)2018-12-07 10:05:00 Test Item Value Reference Range Interpretation Comments GLYCOSYLATED HEMOGLOBIN (HA1C) 5.8 % TOT HB 4.5-6.2 N (test code = GLYHGB) [id number] 15:31:00 Test Item Value Reference Range Interpretation Comments ACETAMINOPHEN (test < 1 MCG/ML 10-30 L Acetamin ophen is code = ACET) possibly toxic at levels of: 1. m ore than 150 MCG/ML 4 hours post kaylin stion. 2. more than 5 0 MCG/ML 12 hours post ingestion. [id number] 15:31:00 Test Item Value Reference Range Interpretation Comments SALICYLATE (test code = < 3 MG/DL 0-20 N Refe rence Range: BOSSMAN) Analgesic...... ...... ...... < 10 mg /dl Therapeutic.... ...... ...... 15-20 mg /dl Mild Toxicity....... ...... . > 30 mg/dl Severe Toxicity....... ..... > 60 mg/dl UA RFLX [id number] 14:18:00 Test Item Value Reference Range Interpretation [...] Clean Catch (test code = UASPEC) UA [id number] 14:18:00 Test Item Value Reference Range Interpretation Comments UA WBC (test code = WBCU) < 10 #/hpf <10 UA RBC (test code = RBCU) 0-2 #/hpf NONE SEEN A UA BACTERIA (test code = BACU) RARE #/hpf NONE SEEN UA SQUAMOUS CELLS (test code = 0 - 20 #/lpf <100 SQU) UA MUCUS (test code = MUCU) 1+ #/lpf NONE SEEN BASIC METABOLIC [id number] 14:16:00 Test Item Value Reference Range Interpretation [...] 9.4 MG/DL 8.7-10.5 N CA) HEPATIC FUNCTION [id number] 14:16:00 Test Item Value Reference Range Interpretation [...] 50-136 N TOTAL (test code = ALKP) [id number] 14:16:00 Test Item Value Reference Range Interpretation Comments CK (test code = CKT) 87 Units/L 26-192 N [id number] 14:16:00 Test Item Value Reference Range Interpretation Comments ALCOHOL (test code = < 3 MG/DL 0-10 N 0 - 10: Should be ALC) interpreted as NEGATIVE. 11 - 50: None to mild euphoria. 51 - 100: Mild influence on vision and dark adapta tion. > 80: Legal intoxication; D epression of LPN CMA; Increasing degr ee of poisoning. > 400: Fatalities repo rted. Results are for medical purposes only a nd not forlegal or emp loyment evaluative purp oses. BASIC METABOLIC [id number] 14:09:00 Test Item Value Reference Range Interpretation [...] 9.4 MG/DL 8.7-10.5 N CA) HEPATIC FUNCTION [id number] 14:09:00 Test Item Value Reference Range Interpretation [...] TOTAL (test Units/L 50-136 code = ALKP) [id number] 14:09:00 Test Item Value Reference Range Interpretation Comments CK (test code = CKT) Units/L 26-192 [id number] 14:09:00 Test Item Value Reference Range Interpretation Comments ALCOHOL (test code = ALC) MG/DL 0-10 LACTIC ACID [id number] 13:50:00 Test Item Value Reference Range Interpretation Comments LACTIC ACID POC 0.97 MMOL/L 0.90-1.70 N Performed by certified (test code = LACTP) ribbing machine operator at [facility] [id number] 13:48:00 Test Item Value Reference Range Interpretation Comments GLUBED (test code = 88 MG/DL 65-99 N Performe d by certified GLUBED) ribbing machine operator at [facility] DRUG OF ABUSE SCREEN [id number] 13:43:00 Test Item Value Reference Interpretation Comments [...] by layton rader methods (i.e., GC/MS) at [facility]. Results of scre en may not be usedin crimi nal justice, job performance or professionalcre dential review, or infa nt custody issues. Negativ e [place] Level ng/ml ------- ----- Cocaine 300 Methamp hetamine (Ecstacy) 500 Cannabinoids (THC) 50 Amphetamine 1000 Barbiturate s 200 Benzodia zepines 200 Opiat es 300 Ph encyclidine (PCP) 25 UR HCG [id number] 13:39:00 Test Item Value Reference Range Interpretation [...] using aquantitative h CG assay. UA RFLX [id number] 13:38:00 Test Item Value Reference Range Interpretation [...] Clean Catch (test code = UASPEC) UA [id number] 13:38:00 Test Item Value Reference Range Interpretation Comments UA WBC (test code = WBCU) #/hpf <10 UA RBC (test code = RBCU) #/hpf NONE SEEN UA SQUAMOUS CELLS (test code = SQU) #/lpf <100 UA RFLX [id number] 13:38:00 Test Item Value Reference Range Interpretation [...] Clean Catch (test code = UASPEC) UA [id number] 13:38:00 Test Item Value Reference Range Interpretation Comments UA WBC (test code = WBCU) #/hpf <10 UA RBC (test code = RBCU) #/hpf NONE SEEN UA SQUAMOUS CELLS (test code = SQU) #/lpf <100 CBC W/AUTO [id number] 13:26:00 Test Item Value Reference Range Interpretation [...] = BA#) 0.05 x10 3/uL 0.0-0.2 N [id number] 19:07:00 Test Item Value Reference Interpretation Comments Range LEVETIRACETAM 28.7 ug/mL 10.0-40.0 This test was developed and (test code = its performance LEVTAM) characteristics determined by [facility]. It has not been cleared orappro froylan by the Food and Drug Administration. Performed At: [place] [place], [place] [id number] ra Larissa MENDOZA Ph:[phone] BASIC METABOLIC [id number] 04:58:00 Test Item Value Reference Range Interpretation [...] code = 8.9 MG/DL 8.7-10.5 N CA) [id number] 04:58:00 Test Item Value Reference Range Interpretation Comments MAGNESIUM (test code = MAG) 1.9 MG/DL 1.8-2.4 N CBC W/AUTO [id number] 04:08:00 Test Item Value Reference Range Interpretation [...] 0.0-0.2 N NRBC#) - MRI BRAIN W/O [id number] 13:51:00 Patient Name: HEATHER HOPE Unit No: [id number] EXAMS: CPT CODE: [id number] MRI BRAIN W/O CONTRAST 04401 Reason: sz INDICATION: Seizure COMPARISON: CT brain, [...] MD Technologist: Andre Self MRI Trscrpt Dt/ (5974)AngeliqueDW6 Orig Print D/T: S: 09/17/2018 (9455) [facility] CntNAME: HEATHER HOPE NOVEMBER [address] PHYS: Felecia Dominguez MD [facility] [place] [address] : 1990 AGE: 27 SEX: F LOC: Nabil.D313 1 PHONE #: [phone] EXAM DATE: 09/17/2018 STATUS: ADM IN FAX #: RAD NO: DC Dt: PAGE 1 Signed [id number] 07:25:00 Test Item Value Reference Range Interpretation Comments PROLACTIN (test code = 24.6 ng/mL 4.8-23.3 H Perfo rmed At: HD PROLAC) [facility] [id number] Sb Man MD Ph:[phone] UA RFLX MICROSCOPIC [id number] 19:02:00 Test Item Value Reference Range Interpretation [...] UACULT) URINE SOURCE: Clean CatchUA RFLX MICROSCOPIC [id number] 18:56:00 Test Item Value Reference Range Interpretation [...] (test code = UACULT) URINE SOURCE: Clean [id number] 15:56:00 Test Item Value Reference Range Interpretation Comments CK (test code = CKT) 34 Units/L 26-192 N BASIC METABOLIC [id number] 12:57:00 Test Item Value Reference Range Interpretation [...] code = 8.6 MG/DL 8.7-10.5 L CA) [id number] 12:57:00 Test Item Value Reference Range Interpretation Comments CK (test code = CKT) 32 Units/L 26-192 N CBC W/AUTO [id number] 12:33:00 Test Item Value Reference Range Interpretation [...] 3/uL 0.0-0.2 N NRBC#) TOTAL IRON BINDING [id number] 05:50:00 Test Item Value Reference Range Interpretation Comments SERUM IRON (test code = IRON) 17 MCG/DL 50-170 L TOTAL IRON BINDING CAPACITY (test 363 MCG/DL 280-400 N code = TIBC) IRON SATURATION (test code = 5 % 15-50 L FESAT) [id number] 05:50:00 Test Item Value Reference Range Interpretation Comments FERRITIN (test code = LULI) 11 NG/ML 3-105 N HEPATIC FUNCTION [id number] 05:32:00 Test Item Value Reference Range Interpretation [...] code = ALKP) - CT HEAD/BRAIN W/O [id number] 20:19:00 Patient Name: HEATHER HOPE Unit No: [id number] EXAMS: CPT CODE: [id number] CT HEAD/BRAIN W/O CONT 02548 Reason: seizure TECHNIQUE: Contiguous 5 mm images [...] Print D/T: S: 09/14/2018 (2021) CTDI: DLP: [facility] NAME: [address] PHYS: NGA. - Keanu Váz[place] [address] : 1990 AGE: 27 SEX: F LOC: D.NER PHONE#: [phone] EXAM DATE: 09/14/2018 STATUS: REG ER FAX #: RAD NO: DC Dt: PAGE 1 Signed Report- XR CHEST 1 [id number] 20:18:00 [facility] Unit No: [id number] EXAMS: CPT CODE: [id number] XR CHEST 1 V 25351 Reason: screen for pneumonia FINDINGS: Single view ofthe chest shows normal heart size and pulmonary vasculature. The lungs are clear bilaterally. There is no focal infiltrate, pleural effusion or pneumothorax. IMPRESSION: No a cute cardiopulmonary findings at 2018 Reported and signed by: Lashell Jimenez MD CC: Keanu Vázquez MD; Cristiane Heath Technologist: Edel Cade CT Trscrpt Dt/ (2017)Tristan Orig PrintD/T: S: 09/14/2018 (2020) [facility] PHYS: HOGSAVANAH. - Keanu Váz[place] [address] : 1990 AGE: 27 SEX: F LOC: MATT PHONE #: [phone] EXAM DATE: STATUS: REG ER FAX #: RAD NO: DC Dt: PAGE 1 Signed ReportHCG SERUM [id number] 20:04:00 Test Item Value Reference Range Interpretation [...] using aquantitative h CG assay. BASIC METABOLIC [id number] 19:51:00 Test Item Value Reference Range Interpretation [...] 9.3 MG/DL 8.7-10.5 N CA) CBC W/AUTO [id number] 19:46:00 Test Item Value Reference Range Interpretation [...] BA#) 0.05 x10 3/uL 0.0-0.2 N BLOOD [id number] 10:00:00 Test Item Value Reference Range Interpretation Comments CULTURE (BEAKER) (test No growth in 5 days code = 1095) HCG, QUANTITATIVE, [id number] 15:37:00 Test Item Value Reference Range Interpretation Comments GONADOTROPIN, CHORIONIC (HCG) 71892 mIU/mL 0-10 H QUANT (BEAKER) (test code = 649) Non- Females: <10 mIU/mL Females: Gestation Age Reference Range(mIU/mL) 0.2-1 Week 5-50 1-2 Weeks 50-500 2-3 Weeks 100-5,000 3-4Weeks 500-10,000 4-5 Weeks 1,000-50,000 5-6 Weeks 10,000-100,000 6-8 Weeks 15,000-200,000 2-3 Months 10,000-100,000COMPREHENSIVE METABOLIC [id number] 15:10:00 Test Item Value Reference Range Interpretation [...] PATIEN TS. CBC W/PLT COUNT & AUTO [id number] 14:53:00 Test Item Value Reference Range Interpretation [...] (test code = 2801) U/S, , FIRST [id number] 07:52:00Reason for exam:-> Reason for exam:->please include [...] 1 day. An embryonic pole is evident. [place]-rump length measures 0.63 cm, correlating with estimated [...] MDReport Verified Date/Time: 05/17/2017 07:52:37 Reading Location: [facility] [address] [place] [address] Consult Reading Room PREGNANCY SCREEN, [id number] 05:28:00 Test Item Value Reference Range Interpretation Comments TEST URINE (BEAKER) (test Positive code = 583) MR, BRAIN, WITHOUT [id number] 18:54:00Reason for exam:->Stroke evaluationFINAL REPORT MRI brain [...] MDReport Verified Date/Time: 05/15/2017 18:54:11 Reading Location: [facility] Reading Room EEG AWAKE AND [id number] 12:08:00Reason for exam:->? nonconvulsive statusDATE OF TEST: 05/15/2017DATE OF REPORT 05/15/2017 ACC: [id number] EE Start time: 1034 Stop time: 1054 ICD-10: R56.9CPT Code: 96606YEEBPBI: 26 y/o woman with epilepsy found down [...] recordings.Marika Smith M.D.Neurophysiology FellowSwathi Harper M.D.Neurophysiology Attending [id number] 04:27:00 Test Item Value Reference Range Interpretation Comments PROCALCITONIN (BEAKER) (test code 0.17 ng/mL <0.05 H = 3036) SEPSIS RISK (ng/mL)Low: 0.05-0.50Intermediate: 0.51-2.00High: >=[id number] 03:15:00 Test Item Value Reference Range Interpretation Comments PHOSPHORUS (BEAKER) (test code = 3.1 mg/dL 2.3-4.7 604) [id number] 03:15:00 Test Item Value Reference Range Interpretation Comments MAGNESIUM (BEAKER) (test code = 1.9 mg/dL 1.6-2.6 627) BASIC METABOLIC [id number] 03:15:00 Test Item Value Reference Range Interpretation [...] code = 380) LACTIC ACID, VENOUS, WHOLE [id number] 03:09:00 Test Item Value Reference Range Interpretation Comments LACTATE BLOOD VENOUS (2) (BEAKER) 0.6 mmol/L 0.5-2.2 (test code = 2872) Effective 10/17/2015: Units/Reference Range ChangeNew: 0.5-2.2 mmol/L Previous: 5-20 mg/dLPROTHROMBIN TIME/[id number] 03:07:00 Test Item Value Reference Range Interpretation [...] = 2801) RAD, CHEST, 1 VIEW, NON [id number] 01:06:00Reason for exam:->possible infectionShould this be performed at the bedside?->YesFINAL REPORT History: Infection. Comparison: None. Findings: A single view of the chest is submitted. The cardiomediastinal contours are unremarkable. There is no focal consolidation, pneumothorax, large pleural effusion or evidence of overt pulmonary edema. There is no acute bony abnormality. Impression: No acute abnormality. Signed: Shabnam Zhu Verified Date/Time: 05/15/2017 01:06:06 Reading Location: [address] Reading Room
[2020-02-12] MEDS ORDERED: NA CHLORIDE 0.9% 1,000 ML ONE (10:31)
[2020-02-12] MEDS ORDERED: levETIRAcetam 1,000 MG in NA CHLORIDE 0.9% 100 ML IV ONE (11:00)
[2020-02-12 11:14] LABS: Urine Blood NEGATIVE (NEG); Urine Glucose NEGATIVE (NEG); Urine Protein NEGATIVE (NEG)
[2020-02-12 11:18] LABS: Urine Bacteria >50 /HPF (<20); Urine Culture Reflex Order NOT NEEDED; Urine RBC NONE SEEN /HPF (NONE SEEN)
[2020-02-12 11:26] LABS: ALT/SGPT 23 U/L (12-78); AST/SGOT 20 U/L (15-37); Alkaline Phosphatase 82 U/L (45-117); BUN Blood Urea Nitrogen 9 mg/dL (7-18); Bicarbonate 25 mmol/L (21-32); Bilirubin Total 0.5 mg/dL (0.2-1.0); Glucose Level 53 mg/dL (74-106); Potassium 4.1 mmol/L (3.5-5.1); Protein, Total 8.2 g/dL (6.4-8.2); Sodium Level 140 mmol/L (136-145)
--- NOTE | 2020-02-12 13:35 | ER ---
Nurse's Notes [facility] Name: Heather Hope Age: 29 yrs Sex: Female : 1990 Arrival Date: 02/12/2020 Time: 09:59 Bed 4 Private MD: Diagnosis: Epilepsy and recurrent seizures Presentation: 02/11 09:59 Chief complaint: Patient states: Witnessed seizure at work just prior to arrival. Pt ss has a history of seizures. Coronavirus screen: Client denies travel out of the [place] in the last 14 days. At this time, the client does not indicate any symptoms associated with coronavirus-19. Ebola Screen: Patient denies exposure to infectious person. Patient denies travel to an Ebola-affected area in the 21 days before illness onset. Initial Sepsis Screen: Does the patient meet any 2 criteria? No. Patient's initial sepsis screen is negative. Does the patient have a suspected source of infection? No. Patient's initial sepsis screen is negative. Risk Assessment: Do you want to hurt yourself or someone else? Patient reports no desire to harm self or others. Onset of symptoms was February 12, 2020. 09:59 Method Of Arrival: EMS: [facility] 09:59 Acuity: DARLYN 3 ss Triage Assessment: 11:22 General: Appears uncomfortable, Behavior is cooperative, drowsy. ll1 Historical: - Allergies: 10:01 No Known Allergies; ss - PMHx: 10:01 Anemia; Seizures; ss - Immunization history:: Adult Immunizations up to date. - Social history:: Smoking status: Patient denies any tobacco usage or history of. Patient/guardian denies using alcohol, street drugs, The patient lives with family. - Family history:: not pertinent. Screenin:21 Abuse screen: Denies threats or abuse. Nutritional screening: No deficits noted. ll1 Tuberculosis screening: No symptoms or risk factors identified. Fall Risk Fall in past 12 months (25 points). Secondary diagnosis (15 points) seizures, IV access (20 points). Ambulatory Aid- Crutches/Cane/Walker (15 pts). Gait- Weak (10 pts.). Mental Status- Overestimates/Forgets Limitations (15 pts.). Total Green Fall Scale indicates High Risk Score (45 or more points). Fall prevention measures have been instituted. Side Rails Up X 2 Placed Close to Nursing Station Frequent Obs/Assessments Occuring As available patient and family educated on Fall Prevention Program and Strategies. Assessment: 11:20 General: Appears uncomfortable, Behavior is cooperative, flat. Pain: Denies pain. ll1 Neuro: Level of Consciousness is awake, alert, obeys commands, Oriented to person, place, time, situation, Appropriate for age Gang Supervisor Pipe Lines are weak bilaterally Moves all extremities. Full function Gait is steady, Speech is normal, Facial symmetry appears normal, Pupils are PERRLA, Seizure activity reported prior to arrival. Cardiovascular: No deficits noted. Respiratory: No deficits noted. GI: Abdomen is flat, Bowel sounds present X 4 quads. Abd is soft and non tender X 4 quads. : No deficits noted. 12:00 Reassessment: No changes from previously documented assessment. Patient and/or family ll1 updated on plan of care and expected duration. Pain level reassessed. Patient is alert, oriented x 3, equal unlabored respirations, skin warm/dry/pink. No seizure activity. Drank PO orange juice. No N/V. 12:31 Reassessment: No changes from previously documented assessment. Patient and/or family ll1 updated on plan of care and expected duration. Pain level reassessed. Patient is alert, oriented x 3, equal unlabored respirations, skin warm/dry/pink. Ate some potato chips, coke, and crackers. No N/V. Vital Signs: 09:59 BP 137 / 87; Pulse 110; Resp 16; Temp 97.6(TE); Pulse Ox 99% on R/A; ss 11:19 BP 118 / 74; Pulse 77; Resp 16; Pulse Ox 99% ; ll1 12:30 BP 114 / 72; Pulse 71; Resp 16; Pulse Ox 98% ; ll1 Thomas Coma Score: 11:22 Eye Response: spontaneous(4). Verbal Response: oriented(5). Motor Response: obeys ll1 commands(6). Total: 15. ED Course: 09:59 Patient arrived in ED. ss 10:00 Triage completed. ss 10:01 Richard Peters MD is Attending Physician. ma2 10:01 Arm band placed on right wrist. ss 10:45 UA MICROSCOPIC Sent. hb 10:54 Donald Marcum RN is Primary Nurse. ll1 11:21 Fall risk band placed. Bed in low position. Call light in reach. Side rails up X2. ll1 Seizure precautions initiated. Pulse ox on. NIBP on. 11:54 Diet: Patient given juice. Tolerated well. ll1 13:35 Srinivas German MD is Referral Physician. ma2 Administered Medications: 10:54 Drug: NS 0.9% 1000 ml Route: IV; Rate: 1 bolus; Site: left wrist; 1 10:59 Drug: Keppra 1000 mg Route: IV; Rate: calculated rate; Site: left wrist; 1 11:18 Follow up: Response: No adverse reaction; RASS: Drowsy (-1); IV Status: Completed ll1 infusion; IV Intake: 100ml Intake: 11:18 IV: 100ml; Total: 100ml. 1 Outcome: 13:35 Discharge ordered by . kourtney 14:00 Patient left the ED. 1 Signatures: Anyi Car RN RN Kiley Nixon RN RN hb Alzahri, Mohammad, MD MD ma2 Lewis, Lynsay, RN RN [facility]
--- NOTE | 2020-02-12 13:35 | EDPHYS ---
Physician Documentation [facility] Name: Heather Hope Age: 29 yrs Sex: Female : 1990 Arrival Date: 02/12/2020 Time: 09:59 Bed 4 Private MD: ED Physician Richard Peters HPI: 02/11 11:05 This 29 yrs old Female presents to ER via EMS with complaints of Seizure. ma2 11:05 The patient presents after having a single isolated seizure. Seizure onset: this ma2 morning. Context: occurred at home. Current symptoms: Currently, the patient is not experiencing any symptoms. The patient has experienced similar episodes in the past. Historical: - Allergies: 10: No Known Allergies; ss - PMHx: 10: Anemia; Seizures; ss - Immunization history:: Adult Immunizations up to date. - Social history:: Smoking status: Patient denies any tobacco usage or history of. Patient/guardian denies using alcohol, street drugs, The patient lives with family. - Family history:: not pertinent. ROS: 11:05 Constitutional: Negative for fever, chills, and weight loss. ma2 11:05 All other systems are negative. Exam: 11:05 Constitutional: This is a well developed, well nourished patient who is awake, alert, ma2 and in no acute distress. Chest/axilla: Normal chest wall appearance and motion. Nontender with no deformity. No lesions are appreciated. Cardiovascular: Regular rate and rhythm with a normal S1 and S2. No gallops, murmurs, or rubs. Normal PMI, no JVD. No pulse deficits. Respiratory: Lungs have equal breath sounds bilaterally, clear to auscultation and percussion. No rales, rhonchi or wheezes noted. No increased work of breathing, no retractions or nasal flaring. Abdomen/GI: Soft, non-tender, with normal bowel sounds. No distension or tympany. No guarding or rebound. No evidence of tenderness throughout. Skin: Warm, dry with normal turgor. Normal color with no rashes, no lesions, and no evidence of cellulitis. MS/ Extremity: Pulses equal, no cyanosis. Neurovascular intact. Full, normal range of motion. Neuro: Awake and alert, GCS 15, oriented to person, place, time, and situation. Cranial nerves II-XII grossly intact. Motor strength 5/5 in all extremities. Sensory grossly intact. Cerebellar exam normal. Normal gait. Vital Signs: 09:59 BP 137 / 87; Pulse 110; Resp 16; Temp 97.6(TE); Pulse Ox 99% on R/A; ss 11:19 BP 118 / 74; Pulse 77; Resp 16; Pulse Ox 99% ; ll1 12:30 BP 114 / 72; Pulse 71; Resp 16; Pulse Ox 98% ; ll1 [place] Coma Score: 11:22 Eye Response: spontaneous(4). Verbal Response: oriented(5). Motor Response: obeys ll1 commands(6). Total: 15. MDM: 10:01 Patient medically screened. ma2 11:05 Differential diagnosis: drug overdose, seizure. Data reviewed: vital signs, nurses ma2 notes. Counseling: I had a detailed discussion with the patient and/or guardian regarding: the historical points, exam findings, and any diagnostic results supporting the discharge/admit diagnosis, the presence of at least one elevated blood pressure reading (>120/80) during this emergency department visit, the need for outpatient follow up. Response to treatment: the patient's symptoms have markedly improved after treatment. 02/11 10:02 Order name: CMP; Complete Time: 12:44 wv2 02/11 10:02 Order name: UA MICROSCOPIC; Complete Time: 12:44 ma2 02/11 10:56 Order name: Urine Dipstick--Ancillary (enter results); Complete Time: 12:44 eb 02/11 10:56 Order name: Urine --Ancillary (enter results); Complete Time: 12:44 eb Administered Medications: 10:54 Drug: NS 0.9% 1000 ml Route: IV; Rate: 1 bolus; Site: left wrist; ll1 10:59 Drug: Keppra 1000 mg Route: IV; Rate: calculated rate; Site: left wrist; ll1 11:18 Follow up: Response: No adverse reaction; RASS: Drowsy (-1); IV Status: Completed ll1 infusion; IV Intake: 100ml Disposition: 02/12/20 13:35 Discharged to Home. Impression: Epilepsy and recurrent seizures. - Condition is Stable. - Discharge Instructions: Seizure, Adult. - Medication Reconciliation Form, Thank You Letter, Antibiotic Education, Prescription Opioid Use form. - Follow up: Srinivas German MD; When: Tomorrow; Reason: If symptoms return, Continuance of care. Signatures: Dispatcher [employer] Anyi Alfaro RN RN Richard Peters MD MD ma2 Donald Marcum RN RN ll1 Corrections: (The following items were deleted from the chart) 14:00 13:35 02/12/2020 13:35 Discharged to Home. Impression: Epilepsy and recurrent seizures. ll1 Condition is Stable. Forms are Medication Reconciliation Form, Thank You Letter, Antibiotic Education, Prescription Opioid Use. Follow up: Srinivas German; When: Tomorrow; Reason: If symptoms return, Continuance of care. [email or web address]
[2020-02-15 17:06] VITALS: TEMP 97.6
[2020-02-15 17:08] VITALS: BP 114/72; O2SAT 98
== END 2020-02-12 14:00 | disposition home or self-care (01) ==
LOC: ER 09:58
DX: G40.802 Other epilepsy, not intractable, without status epilepticus (principal)
CPT/HCPCS: 96365; 36415; 81025; 80053; 99284; J1953; J7030; 81003; 81015

== ENCOUNTER 2020-02-14 12:38 | Observation (INO) | payer OTHER ==
--- OUTSIDE RECORDS SUMMARY | 2020-02-14 12:40 | XMS REPORT | Clinical Summary ---
:1990 Author Organization [employer] Address [address] [place] [address] Care Team Providers Name Role Phone Asked, [...] Encounters Date Type Specialty Care Team Description 02/14/2020 Telephone Neurology Richard Henley MD 01/18/2020 Travel 11/24/2019 Telephone Neurology Richard Henley MD 11/17/2019 Patient Outreach Nola Gonzalez RN 11/16/2019 Patient Outreach Quality Nola Sevilla RN 11/12/2019 - Hospital Encounter General Internal Shari Bailey (HCC) 11/15/2019 Medicine MD Adolfo (Primary Dx) Caesar Maxwell MD Adenwala, Yusuf Ebrahim, MD 10/31/2019 Travel 10/24/2019 Travel after 02/13/2019 Social History Tobacco Use Types Packs/Day Years [...] Treatment Date Type Specialty Care Team Description 02/16/2020 Telemedicine Neurology Richard Henley MD [address] [facility] [address] [place], [place] [address] [phone] Health Maintenance Due Date Last Done Comments [...] are i n the results section. after 02/13/2019 Results Continuous EEG monitoring (11/15/2019 9:41 AM [...] Manual differential PERFORMED [facility] Neutrophils 51.0 39.0 - 69.0 % [facility] Lymphocytes 34.0 25.0 - 45.0 % [facility] Monocytes 13.0 (H) 0.0 - 10.0 % [facility] Eosinophils 2.0 0.0 - 5.0 % [facility] Basophils 0.0 0.0 - 1.0 % [facility] Metamyelocytes 0 % [facility] Promyelocytes 0 % [facility] Platelet slide review Sana adequate [facility] Anisocytosis Moderate [facility] Ovalocytes Moderate [facility] Enlarged platelets Moderate (A) [facility] Specimen Performing Organization Address City/[facility] Cent[facility] Phone Number [facility] DEPARTMENT OF PATHOLOGY AND [address] [place] [address] [id number] [place] [address] CBC with platelet and differential (11/15/2019 4:30 AM CDT)Only the most recent of3 resultswithin the time period is included. Pathologist Sig nature WBC 7.99 4.50 - 11.00 k/uL [facility] RBC 4.06 (L) 4.20 - 5.50 m/uL [facility] HGB 10.8 (L) 12.0 - 16.0 g/dL [facility] HCT 34.1 (L) 37.0 - 47.0 % [facility] MCV 84.0 82.0 - 100.0 fL [facility] MCH 26.6 (L) 27.0 - 34.0 pg [facility] MCHC 31.7 31.0 - 37.0 g/dL [facility] RDW - SD 48.1 37.0 - 55.0 fL [facility] MPV 10.2 8.8 - 13.2 fL [facility] Platelet count 251 150 - 400 k/uL [facility] Nucleated RBC 0.00 /100 WBC [facility] Neutrophils 51.0 39.0 - 69.0 % [facility] Lymphocytes 34.0 25.0 - 45.0 % [facility] Monocytes 13.0 (H) 0.0 - 10.0 % [facility] Eosinophils 2.0 0.0 - 5.0 % [facility] Basophils 0.0 0.0 - 1.0 % [facility] Specimen Blood Performing Organization Address City/State/Zipcode Phone Number [facility] DEPARTMENT OF PATHOLOGY AND [address] [place], [place] [address] [address] Estimated GFR (11/15/2019 4:00 AM CDT)Only the most recent of3 resultswithin the time period is included. Estimated GFR >=90 mL/min/1.73 [facility] Comment: m2 HOSPITAL Catergory Units Interpretation [...] published in 2014. Specimen Performing Organization Address City/[facility] Centercode Phone Number [facility] DEPARTMENT OF PATHOLOGY AND [address] [place] [address] [place] [phone] Basic metabolic panel (11/15/2019 4:00 AM CDT)Only the most recent of2 results within the time period is included. Pathologist Sig nature Sodium 135 135 - 148 mEq/L [facility] Potassium 3.4 (L) 3.5 - 5.0 mEq/L [facility] Chloride 103 98 - 112 mEq/L [facility] CO2 21 (L) 24 - 31 mEq/L [facility] Anion gap 11@ANIO 7 - 15 mEq/L [facility] BUN 9 6 - 20 mg/dL [facility] Creatinine 0.48 (L) 0.50 - 0.90 mg/dL [facility] Glucose 95 65 - 99 mg/dL [facility] Calcium 9.2 8.3 - 10.2 mg/dL [facility] Specimen Blood Performing Organization Address City/[facility]/Zipcode Phone Number [facility] DEPARTMENT OF PATHOLOGY AND [address] [place] [phone] Continuous EEG monitoring (11/15/2019 1:22 AM CDT) [...] - 145 ug/dL [facility] Iron binding capacity 335 200 - 400 ug/dL [facility] % Saturation 6.0 (L) 15.0 - 38.0 % [facility] Specimen Blood Performing Organization Address City/[facility] Centercode Phone Number [facility] DEPARTMENT OF PATHOLOGY AND [address] [place] [address] [phone] [address] Ferritin level (11/13/2019 4:00 AM CDT) Pathologist Sig nature Ferritin level <13 (A) 13 - 150 ng/mL [facility] Specimen Blood Performing Organization Address City/[facility] Centercode Phone Number [facility] DEPARTMENT OF PATHOLOGY AND [address] [place] [address] [phone] [address] MRI Brain W Wo Contrast (11/13/2019 2:16 [...] or cuco-ictal hyperperfusion to localize seizure focus. [id number] Procedure Note Interface, Radiology Results Incoming - [...] or cuco-ictal hyperperfusion to localize seizure focus. [id number] Performing Organization Address [facility]/Zipcode Phone Number [facility] [address] [place] [address] ECG 12 lead (11/12/2019 9:10 PM CDT) Pathologist Sig nature Ventricular rate 81 [facility] MUSE Atrial rate 81 [facility] MUSE AK interval 164 [facility] QRSD interval 84 [facility] QT interval 386 [facility] QTC interval 448 [facility] P axis 1 52 [facility] QRS axis 1 4 [facility] M[facility] T wave axis 13 [facility] EKG impression Normal sinus [facility] M[facility] rhythm-Normal ECG-No previous ECGs available-Electronicall y Signed By Adrian Ibarra MD ([id number]) on 11/13/2019 8:07:25 PM Specimen Narrative Performed At This result has an attachment that is no t available. Performing Organization Address [facility] Phone Number [facility] MUSE [address] [place] [address] Syphilis total antibody (11/12/2019 7:40 PM CDT) Pathologist [facility] Syphilis total Non-reactiveComment Non-reactive [facility] antibody : No serological HOSPITAL evidence of syphilis infection. Specimen Serum Performing Organization Address [facility]/Zipcode Phone Number [facility] DEPARTMENT OF PATHOLOGY AND [address] [place] [address] [phone] [address] HIV Ag/Ab combination (11/12/2019 7:40 PM CDT) Pathologist [facility] HIV Ag/Ab combination Non-reactive Non-reactive [facility] Specimen Blood Performing Organization Address City/[facility]/Zipcode Phone Number [facility] DEPARTMENT OF PATHOLOGY AND [address] [place] [address] [phone] [address] Homocystine, plasma (11/12/2019 7:40 PM CDT) Homocysteine 10.3 0.0 - 15.0 [facility] Comment: umol/L [facility] The risk for coronary vascular disease increases progr essively with homocysteine concentration. A 3.4 times greater risk is associated with a homocysteine concentration of greate r than 15.8 umol/L as compared to a concentration below 14.1 umol/L. Specimen Blood Performing Organization Address City/[facility]/Zipcode Phone Number [facility] DEPARTMENT OF PATHOLOGY AND [address] [place] [address] [phone] [address] MARCELINO titer (11/12/2019 7:40 PM CDT) Pathologist Sig nature MARCELINO titer 1:160 (A) Not-Detected [facility] MARCELINO pattern Homogeneous (A) Not-Detected [facility] Specimen Blood Performing Organization Address [facility] Centercode Phone Number [facility] DEPARTMENT OF PATHOLOGY AND [address] [place] [address] [phone] [address] Vitamin D 25 hydroxy level (11/12/2019 7:40 PM CDT) Pathologist [facility] Vitamin D, 13.6 (L) 30.0 - 150.0 [facility] 25-hydroxy Comment: ng/mL HOSPITAL This assay [...] Blood Performing Organization Address City/State/Zipcode Phone Number [facility] DEPARTMENT OF PATHOLOGY AND [address] [place] [address] [phone] [address] Prolactin level (11/12/2019 7:40 PM CDT) Pathologist Sig nature Prolactin 22 5 - 23 ng/mL [facility] Specimen Performing Organization Address City/[facility] Centercode Phone Number [facility] DEPARTMENT OF PATHOLOGY AND [address] [place] [address] [phone] [address] Sedimentation rate (11/12/2019 7:40 PM CDT) Pathologist Sig [facility] Sedimentation rate 9 0 - 20 mm/hr [facility] Specimen Blood Performing Organization Address [facility] Phone Number [facility] DEPARTMENT OF PATHOLOGY AND [address] [place] [address] [place] [address] Rheumatoid factor (11/12/2019 7:40 PM CDT) Pathologist Sig [facility] Rheumatoid factor <10 0 - 13 IU/mL [facility] Specimen Blood Performing Organization Address [facility] Phone Number [facility] DEPARTMENT OF PATHOLOGY AND [address] [place] [phone] [place] [address] C-reactive protein (11/12/2019 7:40 PM CDT) Pathologist Sig [facility] CRP <0.30 0.00 - 0.50 mg/dL [facility] Specimen Blood Performing Organization Address City/[facility] Centercode Phone Number [facility] DEPARTMENT OF PATHOLOGY AND [address] [place] [address] [phone] [address] MARCELINO (11/12/2019 7:40 PM CDT) MARCELINO screen Positive (A) Negative [facility] Comment: HOSPITAL Test performed using N[employer] Lite DAPI MARCELINO kit (Indirect Immunofluorescence Assay) for Anti-Nuclear Antibody on [employer] 160 Analyzer. Specimen Blood Performing Organization Address City/[facility]/Zipcode Phone Number [facility] DEPARTMENT OF PATHOLOGY AND [address] [place] [address] [phone] [address] Thyroid stimulating hormone (11/12/2019 7:40 PM CDT) Pathologist Sig [facility] TSH 2.21 0.27 - 4.20 uIU/mL [facility] ITAL Specimen Blood Performing Organization Address City/[facility] Centercode Phone Number [facility] DEPARTMENT OF PATHOLOGY AND [address] [place] [address] [phone] [address] T4, free (11/12/2019 7:40 PM CDT) Pathologist [facility] T4, free 1.2 0.9 - 1.7 ng/dL [facility] Specimen Blood Performing Organization Address [facility] Phone Number [facility] DEPARTMENT OF PATHOLOGY AND [address] [place] [address] [phone] [address] Folate level (11/12/2019 7:40 PM CDT) Pathologist [facility] Folate 9.3 4.8 - 24.2 ng/mL [facility] Specimen Serum Performing Organization Address [facility] Centercomd Phone Number [facility] DEPARTMENT OF PATHOLOGY AND [address] [place] [address] [phone] [address] Vitamin B12 level (11/12/2019 7:40 PM CDT) Pathologist [facility] Vitamin B12 466 211 - 946 [facility] Comment: pg/mL HOSPITAL Significant overlap exists between normal and deficien cy states. However, most patients with deficiencies will have Ser um B12 <200 pg/mL. Specimen Serum Performing Organization Address City/[facility] Centercode Phone Number [facility] DEPARTMENT OF PATHOLOGY AND [address] [place] [address] [phone] [address] Creatine kinase, total (CPK) (11/12/2019 7:40 PM CDT) Pathologist Sig [facility] Creatine kinase 56 26 - 192 U/L [facility] Specimen Performing Organization Address City/[facility]/Zipcode Phone Number [facility] DEPARTMENT OF PATHOLOGY AND [address] [place] [address] [phone] [place] [address] Cortisol level, random (11/12/2019 7:40 PM CDT) Cortisol, random 2 ug/dL [facility] Comment: HOSPITAL Reference Ranges are not established for non-timed Cor tisol levels. Reference Range for Timed Cortisol: 6 - 10 AM 6 - 18 ug/d l 4 - 8 PM 3 - 11 ug/ dl Specimen Blood Performing Organization Address City/State/Zipcode Phone Number [facility] DEPARTMENT OF PATHOLOGY AND [address] [place], [place] [address] GENOMIC MEDICINE [facility] [address] [place] [address] [address] Cervical Spine Wo Contrast (11/12/2019 6:12 [...] subluxation identif ied in the cervical spine. [facility]-[id number] Procedure Note Interface, Radiology Results Incoming - [...] subluxation identif ied in the cervical spine. [id number] Performing Organization Address [facility] Centercode Phone Number [facility] [address] [place] [address] CT Maxillofacial Wo Contrast (11/12/2019 6:09 PM [...] unre markable. The paranasal sinuses are clear. [id number] Procedure Note Hm Interface, Radiology Results Incoming [...] unre markable. The paranasal sinuses are clear. [facility]-[id number] Performing Organization Address [facility] Centercode Phone Number [facility] [address] [place] [address] CT Head Wo Contrast (11/12/2019 6:09 PM [...] IMPRESSION: No acute intracranial abnormality identi fied. [id number] Procedure Note Interface, Radiology Results Incoming - [...] IMPRESSION: No acute intracranial abnormality identi fied. [facility]-[id number] Performing Organization Address City/State/Zipcode Phone Number [facility] [address] [place] [address] XR Chest 1 Vw Portable (11/12/2019 5:35 PM CDT) Specimen Narrative Performed At EXAMINATION: XR CHEST 1 VW PORTABLE [facility]: SOB XR CHEST 1 VW PORTABLE images are subm itted COMPARISON: NONE FINDINGS: The cardiac silhouette is normal in size. The pulmonar y vasculature is within normal limits. The lung zones have no focal are a of consolidation. There is no pleural effus ion or pneumothorax. IMPRESSION: 1. There is no acute cardiopulmonary dis ease. [id number] Procedure Note Interface, Radiology Results Incoming - [...] There is no acute cardiopulmonary dis ease. [id number] Performing Organization Address City/[facility]/Zipcode Phone Number [facility] [address] [place] [address] Keppra (Levetiracetam) level (11/12/2019 5:04 PM CDT) Levetiracetam 30 12 - 46 ug/mL [facility] Comment: INTERPRETIVE INFORMATION: Keppra (Levetiracetam) Therapeutic Range: 12-46 ug/mL Toxic: Not well Established Pharmacokinetics of levetiracetam are affected by lamberto l function. Adverse effects may include somnolence, weakness, head ache and vomiting. This levetiracetam (Keppra) immunoassay uses the [employer] idemama reagents, which has known cross-reactivity with the dr norma brownivarakatetam (Briviact) and may report inaccurate resu lts. Patients transitioning from levetiracetam to brivarace goldstein or those who are using both medications should not monitor drug concentrations with the [employer] assay. These p atients should be monitored using a validated chromatographic methodology that distinguishes between drugs to determine drug con centrations. Performed by [facility], [address] [place] [address] [id number] [email or web address], Josué Barreto MD, Lab. Director Specimen Serum Performing Organization Address [facility] Phone Number [facility] [address] [place] [address] [facility] [address] [place] [address] Alcohol level, blood (11/12/2019 5:04 PM CDT) Alcohol None Detected mg/dL [facility] Comment: HOSPITAL Normal None Detected Legal Intoxication in [place] 80 mg/dL (0.08%) - Whole Blood Toxic Concentration 200 mg/dL (0.2%) Potentially Fatal 350 - 500 mg/dL (0. 35 - 0.5%) Alcohol percent None Detected % [facility] Specimen Blood Performing Organization Address [facility] Centercode Phone Number [facility] DEPARTMENT OF PATHOLOGY AND [address] [place] [phone] [facility] [address] [place] [address] Comprehensive metabolic panel (11/12/2019 5:04 PM CDT) [facility] Sodium 142 135 - 148 [facility] mEq/L [facility] Potassium 3.7 3.5 - 5.0 [facility] mEq/L [facility] Chloride 106 98 - 112 [facility] mEq/L [facility] CO2 22 (L) 24 - 31 mEq/L [facility] Anion gap 14@ANIO 7 - 15 mEq/L [facility] BUN 4 (L) 6 - 20 mg/dL [facility] Creatinine 0.60 0.50 - 0.90 [facility] mg/dL [facility] Glucose 98 65 - 99 mg/dL [facility] Calcium 9.4 8.3 - 10.2 [facility] mg/dL [facility] Protein 7.2 6.3 - 8.3 [facility] Comment: g/dL [facility] [place] 4.6-7.0 g/dL 1 week 4.4-7.6 g/dL 7 months-1year 5.1-7.3 g/dL 1-2 years 5.6-7.5 g/dL >3 years 6.0-8.0 g/dL 18-150 6.3-8.3 g/dL Albumin 3.7 3.5 - 5.0 [facility] g/dL [facility] A/G ratio 1.1 0.7 - 3.8 [facility] Alkaline phosphatase 79 35 - 104 U/L [facility] AST 29 10 - 35 U/L [facility] ALT 39 5 - 50 U/L [facility] Total bilirubin <0.2 0.0 - 1.2 [facility] mg/dL [facility] Specimen Blood Performing Organization Address City/State/Zipcode Phone Number [facility] DEPARTMENT OF PATHOLOGY AND [address] [place], [place] [address] [facility] [address] [place] [address] Urinalysis screen and microscopy, with reflex to culture (11/12/2019 2:44 PM CDT) Specimen site Clean catch [facility] Color, UA Straw [facility] Appearance, UA Hazy [facility] Specific gravity, UA 1.020 1.001 - 1.035 [facility] pH, UA 8.0 5.0 - 8.5 [facility] Protein, UA Negative Negative [facility] Glucose, UA Negative Negative [facility] Ketones, UA Negative Negative [facility] Bilirubin, UA Negative Negative [facility] Blood, UA Negative Negative [facility] Nitrite, UA Negative Negative [facility] Urobilinogen, UA <2.0 <2.0 [facility] Leukocyte esterase, Negative Negative [facility] Epithelial cells, UA 6 /HPF [facility] WBC, UA <1 0 - 4 /HPF [facility] RBC, UA None seen 0 - 5 /HPF [facility] Bacteria, UA Few None seen [facility] Yeast, UA None seen [facility] Yeast with None seen [facility] pseudohyphae, [facility] Specimen Urine Performing Organization Address City/[facility] Cent[facility]ode Phone Number [facility] DEPARTMENT OF PATHOLOGY AND [address] [place] [address] [phone] [address] hCG qualitative, urine screen (11/12/2019 2:44 PM CDT) hCG qualitative, NegativeComment: [facility] urine Sensitivity of [facility] test: 25 mIU/mL Specimen Urine Performing Organization Address City/[facility] Center[facility]d Phone Number [facility] DEPARTMENT OF PATHOLOGY AND [address] [place] [address] [phone] [address] Urine drugs of abuse screen (11/12/2019 2:44 PM CDT) Amphetamine screen, Negative [place] urine [facility] Barbiturate screen, Negative [place] urine [facility] Benzodiazepine Negative [place] screen, urine [facility] Cocaine screen, urine Negative [facility] Methadone metabolite Negative [place] (EDDP), urine [facility] Opiates screen, urine Negative [facility] Oxycodone screen, Negative [place] urine [facility] Phencyclidine screen, Negative [place] [facility] Tricyclic screen, Negative [place] [facility] Cannabinoid screen, Negative [place] urine Comment: [facility] Drug screen [facility] Amphetamines 1000 ng/mL Barbiturates 200 ng/mL Benzodiazepines [...] Urine Performing Organization Address City/State/Zipcode Phone Number [facility] DEPARTMENT OF PATHOLOGY AND [address] [place], [place] [address] [address] Urine culture (11/12/2019 2:44 PM CDT) Pathologist Sig nature Urine culture SEE COMMENTComment: [facility] Bacteriuria screen HOSPITAL negative. 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
--- OUTSIDE RECORDS SUMMARY | 2020-02-14 12:40 | XMS REPORT | Clinical Summary ---
:1990 Author Organization [facility] Address [address] [place] [address] Care Team Providers Name Role Phone Unavailable Primary Care Provider Unavailable Allergies No Known Allergies Medications Medication Sig Dispensed Refills Start Date End Date Status levETIRAcetam (KEPPRA) Take 1 tablet 60 tablet 2 05/19/2017 Active 1000 MG tablet (1,000 mg total) by mouth 2 (two) times daily. vitamin Take 1 tablet by 90 tablet 3 05/20/2017 Active w/abhlolc-tgli-vrcdej mouth daily. ( PLUS) 27 mg iron- [...] Not on file Results Not on fileafter 02/13/2019 Insurance Payer Benefit Plan / Group Subscriber ID Type Phone [facility] MEDICAID MEDICAID [place] xxxxxxxxx Medicaid [id number] 1 Advance Directives For more information, please contact:[facility] [employer] [facility] [place], [place] [phone] Code Status Date Activated Date Inactivated Comments Full Code 05/14/2017 10:10 PM 05/19/2017 2:55 PM This code status was determined by: Patient
--- OUTSIDE RECORDS SUMMARY | 2020-02-14 12:43 | XMS REPORT | Continuity of Care Document ---
:1990 Author Organization [facility] t Address [address] [place] [address] Care Team Providers Name Role Phone Asked, Pcp Primary Care Physician Unavailable Lory MENDOZA Attending Clinician Jeffrey BRITO L Attending Clinician Jung TAYLOR, A Attending Clinician Unavailable Berhane SMITH J Attending Clinician Doctor Unassigned, Name Attending Clinician Unavailable Rohit SMITH F Attending Clinician Rita SABA Attending Clinician Di TAYLOR Attending Clinician Unavailable Adolfo Bailey MD Attending Clinician Alissa MENDOZA Attending Clinician Susi Diana MD Attending Clinician Aleksandar MENDOZA Attending Clinician Magda Adam MD Attending Clinician BRANDO RODAS Attending Clinician Unavailable ALISSA Admitting Clinician Unavailable Juliano DEJESUS Admitting Clinician Unavailable Payers Payer Name Policy Type Policy Number Effective Date Expiration Date Moses basurto CIGNACIGNA OPEN xxxxxxxxxxx 2019 [facility] ACCESS/NETWORKxx 00:00:00 Methodis t 0-PresentHMO MEDICAIDMEDICAID xxxxxxxxx 2019 [facility] 00:00:00 Methodis t 0-PresentMedicai d Problems Condition Condition Condition Status Onset Resolution Last Treating Co mments Source Name Details Category Date Date Treatment Clinician Date Seizure Seizure Disease Active [facility] 11-11 [facility] 00:00: st 00 Hypokalemi Hypokalemi Disease Active 2016-[address] [facility] Acute Acute Disease Active 2016-[address] [facility] [address] encephalop encephalop 07-14 Marianna kes - athy athy 00:00: Medical 00 [facility] Seizure Seizure Disease Active 2016-[address] [facility] [address] disorder disorder 07-14 [facility] 00 [facility] Leukocytos Leukocytos Disease Active 2016-[address] [facility] 07-14 [facility] 00 [facility] Less than Less than Disease Active 2016-[address] [facility] [address] 8 weeks 8 weeks 130 [facility] gestation gestation 00:00: [facility] Center Allergies, Adverse Reactions, Alerts Allergy Allergy Status Severity Reaction(s) Onset Inactive Treating Comm ents Source Name Type Date Date Clinician No Known DA Active [facility] No Known DA Active U 2016-[facility] Social History Social Habit Start Date Stop Date Quantity Comments Source Sex Assigned At [facility] M ethodist Exposure to Not sure [facility] Metho dist SARS-CoV-2 (event) Alcohol intake 2019-11-12 2019-11-12 Ex-drinker [facility] thodist 00:00:00 00:00:00 (finding) Smoking Status Start Date Stop Date Source Never smoker [facility] Nancyis nina Medications Ordered Filled Start Stop Current Ordering Indication Dosage Frequency Signature Comments Components Source Medication Medication Date Date Medication? Clinician (SIG) Name Name levETIRAcet 2019- No 750mg Q.5D Take 750 [facility] am (KEPPRA) 11-14 mg by Method i 750 MG 17:12: 00:[address] tablet 15 :00 (two) times a day. levETIRAcet 2019- No 2250mg Q.5D Take [facility] (KEPPRA) 11-14 tablets Meth maude 750 MG 00:00: 23:59 (2,[address] tablet 00 :00 total) by mouth 2 (two) times a day for 30 days. B 2019- No 1{tbl} QD Take 1 [facility] complex-vit 11-14 tablet by Pr thodi carter 00:00: 23:[address] C-folic [...] constipati on for up to 30 days. 2016- Yes 1{tbl} QD Take 1 [facility] [...] blood 2019-11-15 12:02:13 114 mm[Hg] Luz n [facility] pressure Diastolic blood 2019-11-15 12:02:13 74 mm[Hg] Julee Piedra pressure Heart rate 2019-11-15 12:02:13 93 /min Enrique Piedra Body temperature 2019-11-15 12:02:13 36.78 Melody Sonja ton Caoda[facility] Respiratory rate 2019-11-15 12:02:13 18 /min Sonja ton [facility]oda[facility] Oxygen saturation in 2019-11-15 12:02:13 97 /min [...] Bina Bonds EEG SETUP 2019-11-14 00:26:44 Bina Bondsist EEG (ROUTINE) 2019-11-13 07:46:23 Bina Bonds CBC WITH PLATELET AND 2019-11-13 04:00:00 Caesar Maxwell on [facility] DIFFERENTIAL BASIC METABOLIC PANEL 2019-11-13 04:00:00 Caesar Maxwell on [facility] TOTAL IRON BINDING 2019-11-13 04:00:00 Caesar Maxwell CAPACITY FERRITIN LEVEL 2019-11-13 04:00:00 Caesar Maxwell Met hodist ESTIMATED GFR 2019-11-13 04:00:00 Caesar Maxwell Met hodist MANUAL DIFFERENTIAL 2019-11-13 04:00:00 Caesar Maxwell MRI BRAIN W WO CONTRAST 2019-11-13 02:16:00 Bina Bonds CONSULT TO OSTOMY CARE 2019-11-12 23:40:27 Caesar Maxwell [facility] NURSE ECG 12-LEAD 2019-11-12 21:10:47 Bina Bonds MARCELINO 2019-11-12 19:40:00 Bina Bonds FOLATE LEVEL 2019-11-12 19:40:00 Bina Bonds VITAMIN B12 LEVEL 2019-11-12 19:40:00 Bina Bonds [facility] C-REACTIVE PROTEIN 2019-11-12 19:40:00 Bina Bonds on [facility] HOMOCYSTINE, PLASMA 2019-11-12 19:40:00 Bina Bonds [facility] CORTISOL LEVEL, RANDOM 2019-11-12 19:40:00 Bina Bonds [place] [facility] SEDIMENTATION RATE 2019-11-12 19:40:00 Bina Bonds on [facility] RHEUMATOID FACTOR 2019-11-12 19:40:00 Bina Bonds [facility] THYROID STIMULATING 2019-11-12 19:40:00 Bina Bonds [facility] HORMONE T4, FREE 2019-11-12 19:40:00 Bina Bonds SYPHILIS TOTAL ANTIBODY 2019-11-12 19:40:00 Bina Bonds [facility] HIV AG/AB COMBINATION 2019-11-12 19:40:00 Bina Bonds [facility] VITAMIN D 25 HYDROXY 2019-11-12 19:40:00 Bina Bonds [facility] LEVEL CREATINE KINASE, TOTAL 2019-11-12 19:40:00 Shari Bailey on Caoda[facility] (CPK) Adolfo PROLACTIN LEVEL 2019-11-12 19:40:00 Shari Bailey Meth odist Adolfo MARCELINO TITER 2019-11-12 19:40:00 Shari Bailey Meth odist Adolfo CT CERVICAL SPINE WO 2019-11-12 18:12:54 Shari Bailey [facility] CONTRAST Adolfo CT MAXILLOFACIAL WO 2019-11-12 18:09:40 BaileyShari chase [facility] CONTRAST Adolfo CT HEAD WO CONTRAST 2019-11-12 18:09:19 BaileyShari chase [facility] Adolfo XR CHEST 1 VW PORTABLE 2019-11-12 17:35:36 Shari Bailey on Caoda[facility] Adolfo HC COMPLETE BLD COUNT 2019-11-12 17:04:00 Shari Bailey [facility] W/AUTO DIFF [facility] COMPREHENSIVE METABOLIC 2019-11-12 17:04:00 Shari Bailey [facility] PANEL [facility] ALCOHOL LEVEL, BLOOD 2019-11-12 17:04:00 Leo Shari Enrique Caodaism Adolfo KEPPRA (LEVETIRACETAM) 2019-11-12 17:04:00 Shari Bailey on [facility] LEVEL Adolfo ESTIMATED GFR 2019-11-12 17:04:00 Loe Shari [facility] Meth odist Adolfo URINE CULTURE 2019-11-12 14:44:00 Keanu Flores Meth odist URINALYSIS SCREEN AND 2019-11-12 14:44:00 Keanu Flores [facility] MICROSCOPY, WITH REFLEX TO CULTURE HCG QUALITATIVE, URINE 2019-11-12 14:44:00 Keanu Flores on [facility] SCREEN URINE DRUGS OF ABUSE 2019-11-12 14:44:00 Keanu Florse [facility] SCREEN Plan of Care Planned Activity Planned Date Details Comments Source Future Scheduled 2020-03-15 INFLUENZA VACCINE Luz pinzon [facility] Test 00:00:00 [code = INFLUENZA VACCINE] Future Scheduled 2010 Screening for Enrique Me thodist Test 00:00:00 malignant neoplasm of cervix (procedure) [code = 035998277] Encounters Start End Encounter Admission Attending Care Care Encounter Source Date/Time Date/Time Type Type Clinicians Facility Department ID 2020-02-13 2020-02-13 Telephone [facility] [id number] 00:00:00 00:00:00 April Man TARIFF SUPERVISOR [id number] [facility] 4.2.7.2.686 MATERNAL [id number] & CHILD [address] [place] [address] 2020-01-18 2020-01-18 Transition Jen Feng [id number] 00:00:00 00:00:00 of Care Adair Coleman [id number] [place] 4.2.7.2.686 [id number] 2020-01-16 2020-01-17 [facility] [id number] 22:16:00 00:53:00 Pamela Leach [id number] [place] 4.2.7.2.686 [place] [id number] 2020-01-16 2020-01-16 Orders Doctor ELVIA [id number] 00:00:00 00:00:00 Only Unassigned, MICHAELLE [id number] [facility] 4.2.7.2.686 [id number] 2019-11-29 2019-11-29 Emergency Rohit [facility] [id number] 13:51:42 18:42:00 Brittany Leach 350.1.13.10 [place] 4.2.7.2.686 [place] [id number] 2019-11-29 2019-11-29 [facility] [id number] 00:00:00 00:00:00 Cecilia Leach 350.1.13.10 [place] 4.2.7.2.686 Professio [id number] [address] 2019-11-29 2019-11-29 Orders Doctor ELVIA 1.2.840.114 [id number] 00:00:00 00:00:00 Only Unassigned, MICHAELLE 350.1.13.10 [facility] 4.2.7.2.686 [id number] 2019-11-12 2019-11-15 Inpatient [facility] [id number] [facility] 00:00:00 00:00:[address] 2019-10-24 2019-10-24 [facility] 1.2.840.114 [id number] 14:33:37 23:59:00 Encounter Sj OCHOA 350.1.13.10 MEDICAL 4.2.7.2.686 [place] [id number] 2019-10-11 2019-10-11 [facility] [id number] 00:00:00 00:00:00 Cecilia Leach 350.1.13.10 [place] 4.2.7.2.686 Professio [id number] [address] 2019-10-06 2019-10-06 [facility]ici [facility] [id number] 08:13:12 15:30:52 ne Visit Cecilia Leach 350.1.13.10 [place] 4.2.7.2.686 Professio [id number] [address] 2019-08-12 2019-08-12 Case [facility] [id number] 00:00:00 00:00:00 Management Daina Leach 350.1.13.10 [place] 4.2.7.2.686 Professio [id number] [address] 2019-08-12 2019-08-12 Telephone [facility] [id number] 00:00:00 00:00:00 Daina Leach 350.1.13.10 [place] 4.2.7.2.686 [facility]ac[facility] [id number] nal 134 Building 2019-08-10 2019-08-10 Office SENDY Adam 1.2.840.114 [id number] 14:12:35 15:35:54 Visit Daina Leach 350.1.13.10 [place] 4.2.7.2.686 Ltac[facility] [id number] [facility] 134 [facility] Results Test Description Test Test Results Result Source Time Comments Comments Continuous EEG 2019-11- CONTINUOUS VIDEO-EEG [facility] MONITORING REPORT Methodi st 17:34:53 Patient Name: [...] Comme nts MARCELINO titer (test code = 12617-6) 1:160 Not-Detected A MARCELINO pattern (test code = 97856-4) Homogeneous Not-Detected A Lab Interpretation (test code = 16686-3) Abnormal [facility] OroyhfifmSPX3121-82-70 13:08:33 Test Item Value Reference Range Interpretation Comments MARCELINO screen (test code Positive Negative A Test p erformed using = 550) NOVA [place] [employer] DAPI MARCELINO kit (Indirect Immunofluoresce nce Assay) for Anti -Nuclear Antibody on Omny[employer]-Lyser 16 0 Analyzer. Lab Interpretation Abnormal (test code = 90907-4) [facility] MethodistCBC with platelet and xbijebundust2410-93-62 08:57:11 Test Item Value Reference Range Interpretation Comments WBC (test code = 16114-9) 7.99 4.50- 11.00 k/uL RBC (test code = 87449-4) 4.06 m/uL 4.2-5.5 L HGB (test code = 718-7) 10.8 g/dL 12-16 L HCT (test code = 4544-3) 34.1 % 37-47 L MCV (test code = 787-2) 84.0 fL 82-100 MCH (test code = 785-6) 26.6 pg 27-34 L MCHC (test code = 786-4) 31.7 g/dL 31-37 RDW - SD (test code = 48758-4) 48.1 fL 37-55 MPV (test code = 00697-1) 10.2 fL 8.8-13.2 Platelet count (test code = 251 150- 400 k/uL 53442-5) Nucleated RBC (test code = 0.00 /100 WBC 09601-1) Neutrophils (test code = 23227-2) 51.0 % 39-69 Lymphocytes (test code = 50323-3) 34.0 % 25-45 Monocytes (test code = 69347-6) 13.0 % 0-10 H Eosinophils (test code = 62304-6) 2.0 % 0-5 Basophils (test code = 53946-0) 0.0 % 0-1 Lab Interpretation (test code = Abnormal 44357-3) [facility] MethodistManual bqfrxigaflpz8610-89-67 08:57:11 Test Item Value Reference Range Interpretation Comments Manual differential (test code = PERFORMED 34735-4) Neutrophils (test code = 51.0 % 39-69 76276-1) Lymphocytes (test code = 34.0 % 25-45 25533-2) Monocytes (test code = 81435-0) 13.0 % 0-10 H Eosinophils (test code = 2.0 % 0-5 41917-1) Basophils (test code = 43165-1) 0.0 % 0-1 Metamyelocytes (test code = 0 % 740-1) Promyelocytes (test code = 0 % 783-1) Platelet slide review (test code Sana adequate = 12577-2) Anisocytosis (test code = 702-1) Moderate Ovalocytes (test code = 774-0) Moderate Enlarged platelets (test code = Moderate A 63606-1) Lab Interpretation (test code = Abnormal 10871-5) [facility] MethodistContinuous EEG hqujlmqmyv4294-11-18 07:42:19CONTINUOUS VIDEO- EEG MONITORING REPORT Patient Name: [...] regions independently. No seizures occurred. ICD-10 Code: [facility]56.9[facility] MethodistBasic metabolic kwtqu1855-11-87 06:44:31 Test Item Value Reference Range Interpretation Comments Sodium (test code = 2951-2) 135 135- 148 mEq/L Potassium (test code = 2823-3) 3.4 3.5- 5.0 mEq/L L Chloride (test code = 2075-0) 103 98- 112 mEq/L CO2 (test code = 2027-9) 21 24- 31 mEq/L L Anion gap (test code = 11617-5) 11@ANIO 7- 15 mEq/L BUN (test code = 3094-0) 9 mg/dL 6-20 Creatinine (test code = 2160-0) 0.48 mg/dL 0.5-0.9 L Glucose (test code = 2345-7) 95 mg/dL 65-99 Calcium (test code = 38717-2) 9.2 mg/dL 8.3-10.2 Lab Interpretation (test code = Abnormal 81341-4) Enrique MethodistEstimated [id number] 06:44:31 Test Item Value Reference Range Interpretation Comments Estimated GFR (test >=90 mL/min/1.73 m2 Caterg ory Units code = 5488) InterpretationG 1 >=90 Normal or highG2 60-89 Mildly helxxesiqR8j 45-59 Mildly to mode rately cwcppncdjN4d 30-44 Moderately to severely decreasedG4 15-29 Severely decre asedG5 <15 Kidn ey failureThe eGFR was calculated alyssa fortune the Chronic Kidney Disease Epidemiology Co llaboration (CKD-EPI) equat ion. Interpretation is based on recommendations of the National Kidney Foundation-Kidn ey Disease Outcomes Qualit y Initiative (NKF-KDOQI) pub lished in 2014. Enrique MethodistKeppra (Levetiracetam) szpoj3349-20-24 05:29:41 Test Item Value Reference Interpretation Comments Range Levetiracetam 30 ug/mL 12-46 INTERPRETIVE I NFORMATION: (test code = Keppra 4478-4) (Levetiracetam) Therapeutic Range: 12-46 u g/mL Toxic: Not wel l EstablishedPhar macokinetics of levetiracetam a re affected by renal function. Adverse effects may include andi nolence, weakness, heada justus and vomiting.This l evetiracetam (Keppra) immuno assay uses the [employer] reagents, which has known cross -reactivity with the drug brivar acetam (Briviact) and may report inaccurate resu lts. Patients transitioning f rom levetiracetam t o brivaracetam or those who ar e using both medications alejandra uld not monitor drug concentrat ions with the [employer] assay. These patients should be monitored using a validat ed chromatographic methodology that distinguis hes between drugs to determ ine drug concentrations. Performed by JAKE chakraborty,[facility] [place] [facility] Daniel, [facility] 08 bgr .[employer], Josué Barreto MD, Lab. Director [facility] MethodistVitamin D 25 hydroxy habsf7690-33-16 15:46:04 Test Item Value Reference Range Interpretation [...] hods. Lab Interpretation Abnormal (test code = 78674-1) [facility] MethodistContinuous EEG xomzunovhf9515-34-66 07:19:24 CONTINUOUS VIDEO-EEG MONITORING REPORT Patient Name: [...] regions independently. No seizures occurred. ICD-10 Code: [facility]56.9[facility] EEG (routine) - Baseline [id number] 06:43:32EEG RECORDING AWAKE & ASLEEP - Baseline [...] the above findings. Toya Rojo MethodistECG 12 yjmq9081-21-87 20:07:26 Test Item Value Reference Range Interpretation Comments Ventricular rate (test 81 code = 253) Atrial rate (test code = 81 255) DE interval (test code = 164 266) QRSD [...] available-Electronica lly Signed By Adrian Ibarra MD ([id number]) on 11/13/2019 8:07:25 PM [facility] MethodistSyphilis total cxqwexah8945-78-45 10:13:08 Test Item Value Reference Range Interpretation Comments Syphilis total Non-reactive Non-reactive No serologica l antibody (test code evidence of syphilis = 6194) infection. [facility] MethodistFerritin msdei2394-05-30 07:54:01 Test Item Value Reference Range Interpretation Comments Ferritin level (test code = 2276-4) <13 13-150 A Lab Interpretation (test code = Abnormal 14458-9) [facility] MethodistTotal iron binding zmlyqfml7440-26-48 07:50:12 Test Item Value Reference Range Interpretation Comments Iron level (test code = 2498-4) 20 ug/dL 37-145 L Iron binding capacity (test code = 335 ug/dL 261-095 8060-7) % Saturation (test code = 2502-3) 6.0 % 15-38 L Lab Interpretation (test code = Abnormal 45152-6) Enrique CruzistMRI Brain W Wo [id number] 06:11:14Hm Interface, Radiology Results - 11/13/2019 6:14 [...] hypoperfusion or cuco-ictal hyperperfusion to localize seizure focus.[facility]-[id number] MethodistSedimentation rate 2019-11-12 22:03:32 Test Item Value Reference Range Interpretation Comments Sedimentation rate (test code = 9 0- 20 mm/hr 86024-7) [facility] sahftjkypwt6977-13-50 21:46:22 Test Item Value Reference Range Interpretation Comments HIV Ag/Ab combination (test code Non-reactive Non-reactive = 5299) [facility]anoVitamin B12 fytkc6237-87-98 20:56:33 Test Item Value Reference Range Interpretation Comments Vitamin B12 (test 466 pg/mL 211-946 Significan t overlap code = 2132-9) exists betwee n normal and deficiency states.However, most patients with deficiencies wi ll have Serum B12 <2 00 pg/mL. [facility] Methodgallup indian medical centerFolate eszmz9059-46-07 20:56:33 Test Item Value Reference Range Interpretation Comments Folate (test code = 2284-8) 9.3 ng/mL 4.8-24.2 [facility] NancyistT4, [id number] 20:48:50 Test Item Value Reference Range Interpretation Comments T4, free (test code = 3024-7) 1.2 ng/dL 0.9-1.7 [facility] CaodaismCortisol level, scxcyd1184-80-12 20:48:37 Test Item Value Reference Range Interpretation Comments Cortisol, random 2 ug/dL Reference R anges are not (test code = 2143-6) establi shed for non-timed Cortisol levels .Reference Range for Timed Cortisol: 6 - 10 AM 6 - 18 ug/dl 4 - 8 PM 3 - 11 ug/ dl [facility] MethodistThyroid stimulating eulxwmz9097-21-02 20:48:37 Test Item Value Reference Range Interpretation Comments TSH (test code = 3016-3) 2.21 0.27- 4.20 uIU/mL [facility] MethodistProlactin [id number] 20:48:36 Test Item Value Reference Range Interpretation Comments Prolactin (test code = 2842-3) 22 ng/mL 5-23 [facility] MethodistCreatine kinase, total (CPK)2019-11-12 20:42:35 Test Item Value Reference Range Interpretation Comments Creatine kinase (test code = 2157-6) 56 U/L 26-192 [facility] MethodistC-reactive kgvcknx0706-77-28 20:42:35 Test Item Value Reference Range Interpretation Comments CRP (test code = 1988-5) <0.30 0-0.5 [facility] MethodistRheumatoid ptqaxj6823-70-89 20:36:01 Test Item Value Reference Range Interpretation Comments Rheumatoid factor (test code = 67722-9) <10 0- 13 IU/mL [facility] MethodistHomocystine, njkiom6885-72-71 20:36:01 Test Item Value Reference Range Interpretation Comments Homocysteine (test 10.3 umol/L 0-15 The risk for coronary code = 92762-3) vascular dis ease increases progressively w ith homocysteine concentration. A 3.4 times greater r isk is associated wit h a homocysteine concentration o f greater than 15.8 umol/L as carlin red to a concentration below 14.1 umol/L. [facility] MethodistCT Cervical Spine Wo Ceplnliu0503-61-89 18:17:20Hm Interface, Radiology Results 11/12/2019 6:20 PM [...] fracture or subluxation identified in the cervical spine.[facility]-[id number] MethodistCT Maxillofacial Wo Oqfquibn3260-26-04 18:15:46Hm Interface, Radiology Results 11/12/2019 6:18 PM [...] soft tissues are unremarkable.The paranasal sinuses are clear.[facility]-[id number] Caodaism CT Head Wo Pkceejpo9798-89-37 18:11:26Hm Interface, Radiology Results 11/12/2019 6:14 PM [...] air cells are clear.IMPRESSION:No acute intracranial abnormality identified.[facility]-[id number] MethodistComprehensive metabolic myslc1457-96-27 18:10:58 Test Item Value Reference Range Interpretation Comments Sodium (test code = 142 135- 148 mEq/L 2951-2) Potassium (test code = 3.7 3.5- 5.0 mEq/L 2823-3) Chloride (test code = 106 98- 112 mEq/L 5-0) CO2 (test code = 2027-) 22 24- 31 mEq/L L Anion gap (test code = 14@ANIO 7- 15 mEq/L 99869-8) BUN (test code = 3094-0) 4 mg/dL 6-20 L Creatinine (test code = 0.60 mg/dL 0.5-0.9 2160-0) Glucose (test code = 98 mg/dL 65-99 2345-7) Calcium (test code = 9.4 mg/dL 8.3-10.2 17748-5) Protein (test code = 7.2 g/dL 6.3-8.3 -[place] n 2885-2) 4.6-7.0 g/dL1 week 4.4-7 .6 g/dL7 months-1y ear 5.1-7 .3 g/dL1-2 years 5.6-7 .5 g/dL>3 years 6.0-8 .0 g/vZ84-633 6.3-8 .3 g/dL Albumin (test code = 3.7 g/dL 3.5-5 1751-7) A/G ratio (test code = 1.1 0.7-3.8 1759-0) Alkaline phosphatase 79 U/L 35-104 (test code = 6768-6) AST (test code = 1920-8) 29 U/L 10-35 ALT (test code = 1742-6) 39 U/L 5-50 Total bilirubin (test <0.2 0-1.2 code = 1974-2) Lab Interpretation (test Abnormal code = 95810-5) [facility] MethodistAlcohol level, [id number] 18:06:03 Test Item Value Reference Range Interpretation Comments Alcohol percent None Detected % Normal (test code = None Detec tedLegal 5643-2) Intoxication in [place] 80 mg/dL (0.08% ) - Whole BloodToxi c Concentration 200 mg/dL (0.2%)Potential ly Fatal 350 - 500 mg/dL (0.35 - 0 .5%) Enrique PiedraXR Chest 1 Vw Rmudnfbn5495-10-95 17:37:03Hm Interface, Radiology Results 11/12/2019 5:40 PM CDTEXAMINATION: XR CHEST 1 VW PORTABLECLINICAL HISTORY: SOBXR CHEST 1 VW PORTABLE images are submittedCOMPARISON: NONEFINDINGS:The cardiac silhouette is normal in size. The pulmonary vasculature is within normal limits. The lung zones have no focal area of consolidation. There is no pleural effusion or pneumothorax.IMPRESSION:1. Thereis no acute cardiopulmonary disease.[id number] Caodaism Urinalysis screen and microscopy, with reflex to nwzgyro5495-36-44 16:10:59 Test Item Value Reference Range Interpretation Comments Specimen site (test code = Clean catch 9159697) Color, UA (test code = 5778-6) Straw Appearance, UA (test code = Hazy 5767-9) Specific gravity, UA (test code = 1.020 1.001-1.035 5811-5) pH, UA (test code = 5803-2) 8.0 5.0-8.5 Protein, UA (test code = 27711-4) Negative Negative Glucose, UA (test code = 30291-0) Negative Negative Ketones, UA (test code = 2514-8) Negative Negative Bilirubin, UA (test code = Negative Negative 5770-3) Blood, UA (test code = 5794-3) Negative Negative Nitrite, UA (test code = 5802-4) Negative Negative Urobilinogen, UA (test code = <2.0 <2.0 16541-4) Leukocyte esterase, UA (test code Negative Negative = 5799-2) Epithelial cells, UA (test code = 6 /HPF 5787-7) WBC, UA (test code = 5821-4) <1 0- 4 /HPF RBC, UA (test code = 16420-9) None seen 0- 5 /HPF Bacteria, UA (test code = Few None seen 26219-5) Yeast, UA (test code = 12304-2) None seen Yeast with pseudohyphae, UA (test None seen code = 81917-9) [facility] CaodaismUrine drugs of abuse whxwum5193-89-30 15:33:59 Test Item Value Reference Interpretation Comments Range Amphetamine screen, Negative urine (test code = 3349-8) Barbiturate screen, Negative urine (test code = 3377-9) Benzodiazepine Negative screen, urine (test code = 3390-2) Cocaine screen, Negative urine (test code = 3397-7) Methadone Negative metabolite (EDDP), urine (test code = 60822-1) Opiates screen, Negative urine (test code = 3879-4) Oxycodone screen, Negative urine (test code = 77396-6) Phencyclidine Negative screen, urine (test code = 3936-2) Tricyclic screen, Negative urine (test code = 67804-8) Cannabinoid screen, Negative Drug scr een minimum [...] d efinitive testing is requ ired. Enrique CruzistUrine wwrhhqi0744-17-30 15:28:27 Test Item Value Reference Range Interpretation Comments Urine culture (test SEE COMMENT Bacteriu landry screen code = 1665529) negative. Enrique CruzisthCG qualitative, urine ceznev4094-96-34 15:26:18 Test Item Value Reference Range Interpretation Comments hCG qualitative, Negative Sensitivity of HCG test: urine (test code = 25 mIU/mL 6-3) Enrique MethodistRPR Mjhmjjpbmhq9146-12-60 16:47:08 Test Item Value Reference Range Interpretation [...] = 06-14-2020 N Expiration Dt) Thyroid Stimulating Xskenmq3468-93-46 06:31:44 Test Item Value Reference Range Interpretation Comments TSH (test code = TSH) 3.830 mIU/mL 0.270-4.200 Lipid Lcurl0303-17-52 06:24:40 Test Item Value Reference Range Interpretation Comments Cholesterol Total 152 mg/dL 0-200 RISK OF HE ART (test code = DISEASEPublishe d by Cholesterol Total) [employer] Marcelino lyte Optimal Borderl ine [...] LDL/HDL Ratio=L DL Calc/HDL Chol Urine Drug [id number] 21:53:06 Test Item Value Reference Range Interpretation [...] if desired . Urinalysis with Culture, if [id number] 21:40:53 Test Item Value Reference Range Interpretation [...] Indicated Not Indicated Micro Ind?) Comprehensive Metabolic [id number] 21:34:15 Test Item Value Reference Range Interpretation [...] = A/G 1.6 ratio N Ratio) Alcohol [id number] 21:34:15 Test Item Value Reference Range Interpretation Comments Ethanol Level (test <0.00 g/dL 0.00-0.01 Intoxica vandana 0.080 g/dL code = Ethanol or more Level) Ethanol Inst (test <0 N code = Ethanol Inst) Comprehensive Metabolic [id number] 21:34:15 Test Item Value Reference Range Interpretation [...] National Kidney Foundation, http://nkdep.ni h.gov Comprehensive Metabolic [id number] 21:34:15 Test Item Value Reference Range Interpretation [...] not provided, and t he patient is femdelmi le, multiply by 0.7 42. Results for [...] Foundation, http://nkdep.ni h.gov Complete Blood Count with Fvmrmbpgfjdr1612-05-57 21:15:24 Test Item Value Reference Range Interpretation [...] code = IPF) 0 % N Automated [id number] 21:15:24 Test Item Value Reference Range Interpretation Comments Neutro Auto (test code = Neutro 54.3 % 36.0-70.0 Auto) Lymph Auto (test code = Lymph Auto) 32.3 % 12.0-44.0 Freestone Auto (test code = Freestone Auto) 11.1 % 0.0-11.0 H Eos, Auto (test code = Eos, Auto) 1.3 % 0.0-7.0 Basophil Auto (test code = Basophil 0.7 % 0.0-2.0 Auto) Neutro Absolute (test code = Neutro 6.2 x10 1.6-7.4 Absolute) Lymph Absolute (test code = Lymph 3.71 x10 .50-4.60 Absolute) Freestone Absolute (test code = Freestone 1.28 x10 .00-1.20 H Absolute) Eos Absolute (test code = Eos 0.15 x10 0.00-0.74 Absolute) Baso Absolute (test code = Baso 0.08 x10 0.00-0.21 Absolute) IG [id number] 21:15:24 Test Item Value Reference Range Interpretation Comments IG (test code = IG) 0.3 % 0.0-5.0 IG Abs (test code = IG Abs) 0 x10 N HCG Qualitative [id number] 20:45:17 Test Item Value Reference Range Interpretation [...] 72 hours. Lot # (test code = [id number] N Lot #) Expiration Dt (test 2020-12-12 N code = Expiration Dt) Neg Control (test Negative code = Neg Control) Pos Control (test Positive code = Pos Control) Internal QC (test Acceptable code = Internal QC) RPR [id number] 12:07:58 Test Item Value Reference Range Interpretation [...] = 04-14-2020 N Expiration Dt) Thyroid Stimulating [id number] 07:59:52 Test Item Value Reference Range Interpretation Comments TSH (test code = TSH) 0.717 mIU/mL 0.270-4.200 Lipid [id number] 07:52:46 Test Item Value Reference Range Interpretation Comments Cholesterol Total 141 mg/dL 0-200 RISK OF HE ART (test code = DISEASEPublishe d by Cholesterol Total) [employer] Marcelino lyte Optimal Borderl ine [...] LDL/HDL Ratio=L DL Calc/HDL Chol Urine Drug [id number] 15:27:40 Test Item Value Reference Range Interpretation [...] matory test if desired . Comprehensive Metabolic [id number] 15:15:20 Test Item Value Reference Range Interpretation [...] A/G 1.9 ratio N Ratio) Comprehensive Metabolic [id number] 15:15:20 Test Item Value Reference Range Interpretation [...] the National Kidney Foundation, http://nkdep.ni h.gov Alcohol [id number] 15:15:20 Test Item Value Reference Range Interpretation Comments Ethanol Level (test <0.00 g/dL 0.00-0.01 Intoxica vandana 0.080 g/dL code = Ethanol or more Level) Ethanol Inst (test <0 N code = Ethanol Inst) Comprehensive Metabolic [id number] 15:15:20 Test Item Value Reference Range Interpretation [...] ag e have not been validated by [facility] MDRD study and should be interpreted [...] ag e have not been validated by [facility] MDRD study and should be interpreted wit h caution. eGFR R esult Interpretation: eGFR > or = 60 is in the Normal RangeeGF R < 60 may mean kid shannan diseaseeGFR < 1 5 may mean kidney failure Rang es recommended by the National Kidney Foundation, http://nkdep.ni h.gov Urinalysis [id number] 15:11:20 Test Item Value Reference Range Interpretation Comments UA WBC (test code = UA WBC) 6-10 0-5 A UA RBC (test code = UA RBC) 0-5 0-5 UA Bacteria (test code = UA Moderate A Bacteria) UA Squam Epithelial (test code = UA TNTC A Squam Epithelial) UA Mucous (test code = UA Mucous) Few A Urinalysis with Microscopic if [id number] 14:42:58 Test Item Value Reference Range Interpretation [...] GL_SJM_UA_MICRO _IN D Complete Blood Count with [id number] 14:37:26 Test Item Value Reference Range Interpretation [...] code = IPF) 0 % N Automated [id number] 14:37:26 Test Item Value Reference Range Interpretation Comments Neutro Auto (test code = Neutro 65.8 % 36.0-70.0 Auto) Lymph Auto (test code = Lymph Auto) 25.5 % 12.0-44.0 Freestone Auto (test code = Freestone Auto) 7.3 % 0.0-11.0 Eos, Auto (test code = Eos, Auto) 0.7 % 0.0-7.0 Basophil Auto (test code = Basophil 0.5 % 0.0-2.0 Auto) Neutro Absolute (test code = Neutro 6.0 x10 1.6-7.4 Absolute) Lymph Absolute (test code = Lymph 2.34 x10 .50-4.60 Absolute) Freestone Absolute (test code = Freestone .67 x10 .00-1.20 Absolute) Eos Absolute (test code = Eos 0.06 x10 0.00-0.74 Absolute) Baso Absolute (test code = Baso 0.05 x10 0.00-0.21 Absolute) IG [id number] 14:37:26 Test Item Value Reference Range Interpretation Comments IG (test code = IG) 0.2 % 0.0-5.0 IG Abs (test code = IG Abs) 0 x10 N HCG Qualitative [id number] 14:34:08 Test Item Value Reference Range Interpretation [...] 72 hours. Lot # (test code = [id number] N Lot #) Expiration Dt (test 2020-03-14 N code = Expiration Dt) Neg Control (test Negative code = Neg Control) Pos Control (test Positive code = Pos Control) Internal QC (test Acceptable code = Internal QC) DRUGS OF ABUSE SCREEN [id number] 17:11:00 Test Item Value Reference Range Interpretation [...] = [place]) concentrati on: 300 ng/mL URINALYSIS [id number] 17:08:00 Test Item Value Reference Range Interpretation [...] (test code = MOD NONE BACU) URINALYSIS [id number] 17:00:00 Test Item Value Reference Range Interpretation [...] (test code = NONE BACU) HCG SERUM [id number] 16:52:00 Test Item Value Reference Range Interpretation Comments HCG SERUM QUAL (test code = HCGQL) NEGATIVE NEGATIVE - CT HEAD/BRAIN W/O [id number] 16:51:00 FAX: Theresa Fields MD [place]: St: REG Name: HEATHER HOPE [facility] : 1990 Age/S: 28/F [address] [facility] Unit: [id number] Loc: E.[place], [place]: [place] [address] Acct: [id number] Dis Date: Status: REG ER PHONE #: [phone] Exam Date: 02/23/2019 1642 FAX #: [phone] Reason: SEIZURE EXAMS: CPT CODE: [id number] CT HEAD/BRAIN W/O CONT 17432 Dictation location: U19. CT HEAD WITHOUT CONTRAST. [...] MD Technologist: HEATHER DICKSON Trnscrd Dt/Tm: 02/23/2019 (3421) t.[email or web address] Orig Print D/T: S: 02/23/2019 (4274 PAGE 1 Signed ReportBASIC METABOLIC [id number] 16:31:00 Test Item Value Reference Range Interpretation [...] CA) 8.8 mg/dl 8.0-10.5 N BASIC METABOLIC [id number] 16:26:00 Test Item Value Reference Range Interpretation [...] code = CA) mg/dl 8.0-10.5 CBC W/AUTO [id number] 16:15:00 Test Item Value Reference Range Interpretation [...] 3-60 N code = VLDL) RAPID PLASMA [id number] 10:31:00 Test Item Value Reference Range Interpretation Comments RAPID PLASMA REAGIN (test code = Nonreactive Nonreactive RPR) GLYCOSYLATED HEMOGLOBIN (HA1C)2018-12-07 10:05:00 Test Item Value Reference Range Interpretation Comments GLYCOSYLATED HEMOGLOBIN (HA1C) 5.8 % TOT HB 4.5-6.2 N (test code = GLYHGB) [id number] 15:31:00 Test Item Value Reference Range Interpretation Comments ACETAMINOPHEN (test < 1 MCG/ML 10-30 L Acetamin ophen is code = ACET) possibly toxic at levels of: 1. m ore than 150 MCG/ML 4 hours post kaylin stion. 2. more than 5 0 MCG/ML 12 hours post ingestion. [id number] 15:31:00 Test Item Value Reference Range Interpretation Comments SALICYLATE (test code = < 3 MG/DL 0-20 N Refe rence Range: BOSSMAN) Analgesic...... ...... ...... < 10 mg /dl Therapeutic.... ...... ...... 15-20 mg /dl Mild Toxicity....... ...... . > 30 mg/dl Severe Toxicity....... ..... > 60 mg/dl UA RFLX [id number] 14:18:00 Test Item Value Reference Range Interpretation [...] Clean Catch (test code = UASPEC) UA [id number] 14:18:00 Test Item Value Reference Range Interpretation Comments UA WBC (test code = WBCU) < 10 #/hpf <10 UA RBC (test code = RBCU) 0-2 #/hpf NONE SEEN A UA BACTERIA (test code = BACU) RARE #/hpf NONE SEEN UA SQUAMOUS CELLS (test code = 0 - 20 #/lpf <100 SQU) UA MUCUS (test code = MUCU) 1+ #/lpf NONE SEEN BASIC METABOLIC [id number] 14:16:00 Test Item Value Reference Range Interpretation [...] 9.4 MG/DL 8.7-10.5 N CA) HEPATIC FUNCTION [id number] 14:16:00 Test Item Value Reference Range Interpretation [...] 50-136 N TOTAL (test code = ALKP) [id number] 14:16:00 Test Item Value Reference Range Interpretation Comments CK (test code = CKT) 87 Units/L 26-192 N [id number] 14:16:00 Test Item Value Reference Range Interpretation Comments ALCOHOL (test code = < 3 MG/DL 0-10 N 0 - 10: Should be ALC) interpreted as NEGATIVE. 11 - 50: None to mild euphoria. 51 - 100: Mild influence on vision and dark adapta tion. > 80: Legal intoxication; D epression of WAX PATTERN REPAIRER; Increasing degr ee of poisoning. > 400: Fatalities repo rted. Results are for medical purposes only a nd not forlegal or emp loyment evaluative purp oses. BASIC METABOLIC [id number] 14:09:00 Test Item Value Reference Range Interpretation [...] 9.4 MG/DL 8.7-10.5 N CA) HEPATIC FUNCTION [id number] 14:09:00 Test Item Value Reference Range Interpretation [...] TOTAL (test Units/L 50-136 code = ALKP) [id number] 14:09:00 Test Item Value Reference Range Interpretation Comments CK (test code = CKT) Units/L 26-192 [id number] 14:09:00 Test Item Value Reference Range Interpretation Comments ALCOHOL (test code = ALC) MG/DL 0-10 LACTIC ACID [id number] 13:50:00 Test Item Value Reference Range Interpretation Comments LACTIC ACID POC 0.97 MMOL/L 0.90-1.70 N Performed by certified (test code = LACTP) medical numerical control operator at [facility] [id number] 13:48:00 Test Item Value Reference Range Interpretation Comments GLUBED (test code = 88 MG/DL 65-99 N Performe d by certified GLUBED) medical numerical control operator at [facility] DRUG OF ABUSE SCREEN [id number] 13:43:00 Test Item Value Reference Interpretation Comments [...] by layton rader methods (i.e., GC/MS) at [facility]. Results of scre en may not be usedin crimi nal justice, job performance or professionalcre dential review, or infa nt custody issues. Negativ e [place] Level ng/ml ------- ----- Cocaine 300 Methamp hetamine (Ecstacy) 500 Cannabinoids (THC) 50 Amphetamine 1000 Barbiturate s 200 Benzodia zepines 200 Opiat es 300 Ph encyclidine (PCP) 25 UR HCG [id number] 13:39:00 Test Item Value Reference Range Interpretation [...] using aquantitative h CG assay. UA RFLX [id number] 13:38:00 Test Item Value Reference Range Interpretation [...] Clean Catch (test code = UASPEC) UA [id number] 13:38:00 Test Item Value Reference Range Interpretation Comments UA WBC (test code = WBCU) #/hpf <10 UA RBC (test code = RBCU) #/hpf NONE SEEN UA SQUAMOUS CELLS (test code = SQU) #/lpf <100 UA RFLX [id number] 13:38:00 Test Item Value Reference Range Interpretation [...] Clean Catch (test code = UASPEC) UA [id number] 13:38:00 Test Item Value Reference Range Interpretation Comments UA WBC (test code = WBCU) #/hpf <10 UA RBC (test code = RBCU) #/hpf NONE SEEN UA SQUAMOUS CELLS (test code = SQU) #/lpf <100 CBC W/AUTO [id number] 13:26:00 Test Item Value Reference Range Interpretation [...] = BA#) 0.05 x10 3/uL 0.0-0.2 N [id number] 19:07:00 Test Item Value Reference Interpretation Comments Range LEVETIRACETAM 28.7 ug/mL 10.0-40.0 This test was developed and (test code = its performance LEVTAM) characteristics determined by [facility]. It has not been cleared orappro froylan by the Food and Drug Administration. Performed At: [facility] [place] [id number] [facility] [place] [id number] ra Larissa MENDOZA Ph:[phone] BASIC METABOLIC [id number] 04:58:00 Test Item Value Reference Range Interpretation [...] code = 8.9 MG/DL 8.7-10.5 N CA) [id number] 04:58:00 Test Item Value Reference Range Interpretation Comments MAGNESIUM (test code = MAG) 1.9 MG/DL 1.8-2.4 N CBC W/AUTO [id number] 04:08:00 Test Item Value Reference Range Interpretation [...] 0.0-0.2 N NRBC#) - MRI BRAIN W/O [id number] 13:51:00 Patient Name: HEATHER HOPE Unit No: [id number] EXAMS: CPT CODE: [id number] MRI BRAIN W/O CONTRAST 00810 Reason: sz INDICATION: Seizure COMPARISON: CT brain, [...] MD Technologist: Andre Self MRI Trscrpt Dt/ (2596)AngeliqueDW6 Orig Print D/T: S: 09/17/2018 (8877) [facility] CntNAME: HEATHER HOPE NOVEMBER [address] PHYS: Felecia Dominguez [place] [address] : 1990 AGE: 27 SEX: F LOC: D.D313 1 PHONE #: [phone] EXAM DATE: 09/17/2018 STATUS: ADM IN FAX #: RAD NO: DC Dt: PAGE 1 Signed [id number] 07:25:00 Test Item Value Reference Range Interpretation Comments PROLACTIN (test code = 24.6 ng/mL 4.8-23.3 H Perfo rmed At: HD PROLAC) [facility] [id number] Kyle L MD Ph:[phone] UA RFLX MICROSCOPIC [id number] 19:02:00 Test Item Value Reference Range Interpretation [...] UACULT) URINE SOURCE: Clean CatchUA RFLX MICROSCOPIC [id number] 18:56:00 Test Item Value Reference Range Interpretation [...] (test code = UACULT) URINE SOURCE: Clean [id number] 15:56:00 Test Item Value Reference Range Interpretation Comments CK (test code = CKT) 34 Units/L 26-192 N BASIC METABOLIC [id number] 12:57:00 Test Item Value Reference Range Interpretation [...] code = 8.6 MG/DL 8.7-10.5 L CA) [id number] 12:57:00 Test Item Value Reference Range Interpretation Comments CK (test code = CKT) 32 Units/L 26-192 N CBC W/AUTO [id number] 12:33:00 Test Item Value Reference Range Interpretation [...] 3/uL 0.0-0.2 N NRBC#) TOTAL IRON BINDING [id number] 05:50:00 Test Item Value Reference Range Interpretation Comments SERUM IRON (test code = IRON) 17 MCG/DL 50-170 L TOTAL IRON BINDING CAPACITY (test 363 MCG/DL 280-400 N code = TIBC) IRON SATURATION (test code = 5 % 15-50 L FESAT) [id number] 05:50:00 Test Item Value Reference Range Interpretation Comments FERRITIN (test code = LULI) 11 NG/ML 3-105 N HEPATIC FUNCTION [id number] 05:32:00 Test Item Value Reference Range Interpretation [...] code = ALKP) - CT HEAD/BRAIN W/O [id number] 20:19:00 Patient Name: HEATHER HOPE Unit No: [id number] EXAMS: CPT CODE: [id number] CT HEAD/BRAIN W/O CONT 92746 Reason: seizure TECHNIQUE: Contiguous 5 mm images [...] Heath Technologist: Edel Cade CT Trscrpt Dt/ (2018)t.[email or web address].DKW Orig Print D/T: S: 09/14/2018 (2021) CTDI: DLP: [facility] NAME: HEATHER HOPE [address] [facility] PHYS: NGA. - Keanu Váz[place] [address] : 1990 AGE: 27 SEX: F LOC: D.KIN PHONE#: [phone] EXAM DATE: 09/14/2018 STATUS: REG ER FAX #: RAD NO: DC Dt: PAGE 1 Signed Report- XR CHEST 1 [id number] 20:18:00 Patient Name: HEATHER HOPE Unit No: [id number] EXAMS: CPT CODE: [id number] XR CHEST 1 V 27376 Reason: screen for pneumonia FINDINGS: Single view ofthe chest shows normal heart size and pulmonary vasculature. The lungs are clear bilaterally. There is no focal infiltrate, pleural effusion or pneumothorax. IMPRESSION: No a cute cardiopulmonary findings at 2018 Reported and signed by: Lashell Jimenez MD CC: Keanu Vázquez MD; Cristiane Heath Technologist: Edel BURNS Trscrpt Dt/ (2017)Tristan Orig PrintD/T: S: 09/14/2018 (2020) [facility] NAME: HEATHER HOPE NOVEMBER [address] PHYS: NGA. - Kaenu Váz[place] [address] : 1990 AGE: 27 SEX: F LOC: MATT PHONE #: [phone] EXAM DATE: STATUS: REG ER FAX #: RAD NO: DC Dt: PAGE 1 Signed ReportHCG SERUM [id number] 20:04:00 Test Item Value Reference Range Interpretation [...] using aquantitative h CG assay. BASIC METABOLIC [id number] 19:51:00 Test Item Value Reference Range Interpretation [...] 9.3 MG/DL 8.7-10.5 N CA) CBC W/AUTO [id number] 19:46:00 Test Item Value Reference Range Interpretation [...] BA#) 0.05 x10 3/uL 0.0-0.2 N BLOOD [id number] 10:00:00 Test Item Value Reference Range Interpretation Comments CULTURE (BEAKER) (test No growth in 5 days code = 1095) HCG, QUANTITATIVE, [id number] 15:37:00 Test Item Value Reference Range Interpretation Comments GONADOTROPIN, CHORIONIC (HCG) 40718 mIU/mL 0-10 H QUANT (BEAKER) (test code = 649) Non- Females: <10 mIU/mL Females: Gestation Age Reference Range(mIU/mL) 0.2-1 Week 5-50 1-2 Weeks 50-500 2-3 Weeks 100-5,000 3-4Weeks 500-10,000 4-5 Weeks 1,000-50,000 5-6 Weeks 10,000-100,000 6-8 Weeks 15,000-200,000 2-3 Months 10,000-100,000COMPREHENSIVE METABOLIC [id number] 15:10:00 Test Item Value Reference Range Interpretation [...] PATIEN TS. CBC W/PLT COUNT & AUTO [id number] 14:53:00 Test Item Value Reference Range Interpretation [...] (test code = 2801) U/S, , FIRST [id number] 07:52:00Reason for exam:-> Reason for exam:->please include [...] 1 day. An embryonic pole is evident. [place]-rump length measures 0.63 cm, correlating with estimated [...] MDReport Verified Date/Time: 05/17/2017 07:52:37 Reading Location: [facility] C0X [facility] Consult Reading Room PREGNANCY SCREEN, [id number] 05:28:00 Test Item Value Reference Range Interpretation Comments TEST URINE (BEAKER) (test Positive code = 583) MR, BRAIN, WITHOUT [id number] 18:54:00Reason for exam:->Stroke evaluationFINAL REPORT MRI brain [...] Parra Verified Date/Time: 05/15/2017 18:54:11 Reading Location: [facility] Radiology Reading Room EEG AWAKE AND [id number] 12:08:00Reason for exam:->? nonconvulsive statusDATE OF TEST: 05/15/2017DATE OF REPORT 05/15/2017 ACC: [id number] EE Start time: 1034 Stop time: 1054 ICD-10: R56.9CPT Code: 88651GYLEPUL: 26 y/o woman with epilepsy found down [...] recordings.Marika Smith M.D.Neurophysiology FellowSwathi Harper M.D.Neurophysiology Attending [id number] 04:27:00 Test Item Value Reference Range Interpretation Comments PROCALCITONIN (BEAKER) (test code 0.17 ng/mL <0.05 H = 3036) SEPSIS RISK (ng/mL)Low: 0.05-0.50Intermediate: 0.51-2.00High: >=[id number] 03:15:00 Test Item Value Reference Range Interpretation Comments PHOSPHORUS (BEAKER) (test code = 3.1 mg/dL 2.3-4.7 604) [id number] 03:15:00 Test Item Value Reference Range Interpretation Comments MAGNESIUM (BEAKER) (test code = 1.9 mg/dL 1.6-2.6 627) BASIC METABOLIC [id number] 03:15:00 Test Item Value Reference Range Interpretation [...] code = 380) LACTIC ACID, VENOUS, WHOLE [id number] 03:09:00 Test Item Value Reference Range Interpretation Comments LACTATE BLOOD VENOUS (2) (BEAKER) 0.6 mmol/L 0.5-2.2 (test code = 2872) Effective 10/17/2015: Units/Reference Range ChangeNew: 0.5-2.2 mmol/L Previous: 5-20 mg/dLPROTHROMBIN TIME/[id number] 03:07:00 Test Item Value Reference Range Interpretation [...] = 2801) RAD, CHEST, 1 VIEW, NON [id number] 01:06:00Reason for exam:->possible infectionShould this be performed at the bedside?->YesFINAL REPORT History: Infection. Comparison: None. Findings: A single view of the chest is submitted. The cardiomediastinal contours are unremarkable. There is no focal consolidation, pneumothorax, large pleural effusion or evidence of overt pulmonary edema. There is no acute bony abnormality. Impression: No acute abnormality. Signed: Shabnam Zhu Verified Date/Time: 05/15/2017 01:06:06 Reading Location: [address] Reading Room
--- OUTSIDE RECORDS SUMMARY | 2020-02-14 12:44 | XMS REPORT | Summary of Care ---
:1990 Author Organization [facility] Address [address] [place] [address] Care Team Providers Name Role Phone Doctor Unassigned, [place] [employer] Hmo Unavailable Denilson Lorenz MD Primary Care Provider Reason for Visit Reason Comments Assessment has more seizures during per iod Encounter Details Date Type Department Care Team Description 02/13/[address] [facility]- April Murphy Ass essment (has more Beaman L, [facility]) [address] [phone] Allergies No Known Allergiesdocumented as of this encounter (statuses as of 02/13/2020) Medications Medication Sig Dispensed Refills Start Date [...] as of this encounter (statuses as of 02/13/2020) Active Problems Problem Noted Date Abnormal vaginal [...] as of this encounter (statuses as of 02/13/2020) Resolved Problems Problem Noted Date Resolved Date [...] as of this encounter (statuses as of 02/13/2020) Immunizations Name Administration Dates Next Due Influenza [...] this encounter Miscellaneous Notes Telephone Encounter - Cecilia Salinas PA-C - 02/13/2020 3:36 PM CDTPatient was started on OCPs in 10/06/2019. Patient was suppose to FOLLOW-UP with Dr. Adam afterwards for IUD insertion but never came in. Please schedule appointment for IUD insertion with Dr. Adam. elephone Encounter - Deb Rodas - 02/13/2020 3:11 PM CDTHeather Hope is a 29 year old female Is calling because she has more seizures during her period. She has had 4 already this week and is missing work. Neurologist doesn't do anything but change medication. Please advise. documented in this encounter Plan of Treatment [...] Address Type / Group EDELMIRA HICKEY II [id number] [facility] [id number] 2019-Pres Medicaid COMM PLAN - STAR t MANAGED MEDICAID documented as of this encounter
[2020-02-14] MEDS ORDERED: NA CHLORIDE 0.9% 500 ML ONE (13:27)
[2020-02-14] MEDS ORDERED: levETIRAcetam 1,000 MG in NA CHLORIDE 0.9% 100 ML IV ONE (13:30)
[2020-02-14 14:02] LABS: Barbiturates NEGATIVE (NEGATIVE); Benzodiazepines NEGATIVE (NEGATIVE); Cocaine NEGATIVE (NEGATIVE); METHAMPHETAM NEGATIVE (NEGATIVE); Methadone NEGATIVE (NEGATIVE); Opiates NEGATIVE (NEGATIVE); Phencyclidine NEGATIVE (NEGATIVE); THC Cannibis NEGATIVE (NEGATIVE)
[2020-02-14 14:04] LABS: Urine Bacteria <20 /HPF (<20); Urine Culture Reflex Order NOT NEEDED; Urine RBC <5 /HPF (NONE SEEN)
[2020-02-14 14:21] LABS: Absolute Lymphocytes (CBC) 1.4 K/uL (0.7-4.9); Basophils % 0.6 % (0-1.3); Hematocrit 38.3 % (36.0-45.0); Lymphocytes % 16.5 % (15.3-44.8); MPV 8.3 fL (7.6-11.3); RBC Red Blood Cell Count 4.48 M/uL (3.86-4.86)
[2020-02-14 14:32] LABS: Urine Blood NEGATIVE (NEG); Urine Glucose NEGATIVE (NEG); Urine Protein NEGATIVE (NEG); Urine Specific Gravity 1.025 (1.005-1.030)
[2020-02-14 14:32] LABS: BUN Blood Urea Nitrogen 8 mg/dL (7-18); Bicarbonate 24 mmol/L (21-32); Glucose Level 97 mg/dL (74-106); Potassium 3.9 mmol/L (3.5-5.1); Sodium Level 139 mmol/L (136-145)
--- NOTE | 2020-02-14 14:57 | ER ---
Nurse's Notes [facility] Name: Heather Hope Age: 29 yrs Sex: Female : 1990 Arrival Date: 02/14/2020 Time: 12:39 Bed 19 Private MD: Diagnosis: Epilepsy and recurrent seizures Presentation: 02/13 12:45 Chief complaint: Patient states: Hx of seizure, takes Keppra 750mg 3 tabs BID, denies ca1 missing doses. Seizures started Thursday, 3 episodes per day. Denies fever, abdominal pain, N/V/D. Reports loss of appetite. Coronavirus screen: Client denies travel out of the [place] in the last 14 days. At this time, the client does not indicate any symptoms associated with coronavirus-19. Ebola Screen: Patient negative for fever greater than or equal to 101.5 degrees Fahrenheit, and additional compatible Ebola Virus Disease symptoms Patient denies exposure to infectious person. Patient denies travel to an Ebola-affected area in the 21 days before illness onset. No symptoms or risks identified at this time. Initial Sepsis Screen: Does the patient meet any 2 criteria? No. Patient's initial sepsis screen is negative. Does the patient have a suspected source of infection? No. Patient's initial sepsis screen is negative. Risk Assessment: Do you want to hurt yourself or someone else? Patient reports no desire to harm self or others. Onset of symptoms was February 14, 2020. 12:45 Method Of Arrival: Wheelchair ca1 12:45 Acuity: DARLYN 3 ca1 Triage Assessment: 12:45 General: Appears in no apparent distress. Behavior is calm, cooperative, appropriate ca1 for age. Pain: Denies pain. Neuro: Level of Consciousness is awake, alert, obeys commands, Oriented to person, place, time, situation. 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 - Social history:: Smoking status: Patient denies any tobacco usage or history of. - Family history:: not pertinent. - Hospitalizations: : No recent hospitalization is reported. Screenin:30 Abuse screen: Denies threats or abuse. Denies injuries from another. Nutritional iw screening: No deficits noted. Tuberculosis screening: No symptoms or risk factors identified. Fall Risk IV access (20 points). Assessment: 12:50 General: Appears in no apparent distress. Behavior is drowsy. Neuro: Level of iw Consciousness is listless, Oriented to none. Cardiovascular: Patient's skin is warm and dry. Respiratory: Respiratory effort is even, unlabored, Respiratory pattern is regular, symmetrical. GI: Abdomen is non-distended. Derm: Skin is intact, is healthy with good turgor. Musculoskeletal: Range of motion: intact in all extremities. 13:44 Reassessment: lab at beside for lab draw, urine sent to lab. iw 14:19 Reassessment: Patient appears in no apparent distress at this time. pt appears to be iw sleeping in bed, awakens to tactile stimuli, able to follow commands, oriented X3 but slow to respond. 14:30 Reassessment: no seizure activity noted for duration of visit. iw 17:10 Reassessment: Patient appears in no apparent distress at this time. Patient and/or iw family updated on plan of care and expected duration. Pain level reassessed. Patient is alert, oriented x 3, equal unlabored respirations, skin warm/dry/pink. pt sitting up eating food. Vital Signs: 12:45 BP 123 / 70; Pulse 90; Resp 16 S; Temp 98.9(TE); Pulse Ox 100% on R/A; Weight 68.04 kg ca1 (R); Height 5 ft. 3 in. (160.02 cm) (R); 14:43 BP 101 / 85; Pulse 81; Resp 16; Pulse Ox 100% on R/A; Pain 0/10; iw 12:45 Body Mass Index 26.57 (68.04 kg, 160.02 cm) ca1 Thomas Coma Score: 12:45 Eye Response: spontaneous(4). Verbal Response: oriented(5). Motor Response: obeys ca1 commands(6). Total: 15. ED Course: 12:39 Patient arrived in ED. ag5 12:42 Moi Avalos MD is Attending Physician. rn 12:45 Arm band placed on right wrist. ca1 12:45 Patient has correct armband on for positive identification. Placed in gown. Bed in low ca1 position. Call light in reach. Side rails up X2. Seizure precautions initiated. Pulse ox on. NIBP on. Door closed. Noise minimized. Lights dimmed. Warm blanket given. 13:12 Triage completed. ca1 13:13 Lashawn Jimenez RN is Primary Nurse. iw 13:13 Initial lab(s) drawn, by me, sent to lab. Missed attempt(s): 22 gauge in right iw antecubital area. Bleeding controlled, band aid applied, catheter tip intact. 13:45 Urine collected: straight cath specimen, clear. iw 14:00 Inserted saline lock: 20 gauge in left EJ, using aseptic technique. Blood collected. iw 14:56 Chicho Avalos MD is Hospitalizing Provider. rn 17:48 No provider procedures requiring assistance completed. Patient did not have IV access iw during this emergency room visit. Administered Medications: 14:10 Drug: Keppra 1000 mg Route: IV; Rate: calculated rate; Site: left jugular; iw 14:25 Follow up: IV Status: Completed infusion iw 14:10 Drug: NS 0.9% 500 ml Route: IV; Rate: bolus; Site: left jugular; iw 15:00 Follow up: IV Status: Completed infusion iw 15:13 Drug: Depakote 1000 mg Route: PO; iw 17:27 Follow up: Response: No adverse reaction iw Outcome: 14:56 Decision to Hospitalize by Provider. rn 17:48 Admitted to 17:48 Condition: good 17:48 Discharge instructions given to patient, Instructed on the need for admit. 17:49 Patient left the ED. aa5 Signatures: Lashawn Jimenez RN RN iw Moi Avalos MD MD rn Calderon, Audri, RN RN aa5 Jannette Romero RN RN ca1 Abbey Valdez 5 Corrections: (The following items were deleted from the chart) 13:15 13:13 Arm band placed on right wrist. ca1 ca1
--- NOTE | 2020-02-14 14:57 | EDPHYS ---
Physician Documentation [facility] Name: Heather Hope Age: 29 yrs Sex: Female : 1990 Arrival Date: 02/14/2020 Time: 12:39 Bed 19 Private MD: ED Physician Moi Avalos HPI: 02/13 14:05 This 29 yrs old Female presents to ER via Wheelchair with complaints of rn Seizure. 14:05 The patient presents with a history of multiple seizures, a total of 3. Seizure onset: rn just prior to arrival. Current symptoms: Currently, the patient is not experiencing any symptoms. The patient has experienced similar episodes in the past. Reports told by family had 3 seizures today, was off from work, happened at home, generalized, reports compliant with keppra, just seen here recently for seizure, reports has seen Dr. German in past. No fever, does not feel ill. No head trauma. Reports feels tired right now, but normal after her seizures. She would like to know why she is having more seizures recently. Denies drug use. . TRANSCRIPTION: 13:13 LMP 01/23/2020 ca1 Historical: - Allergies: 13:13 No Known Allergies; ca1 - Home Meds: 13:13 Keppra 750 mg Oral tab 3 tabs 2 times per day [Active]; ca1 - PMHx: 13:13 Anemia; Seizures; ca1 - PSHx: 13:13 None; ca1 - Immunization history:: Adult Immunizations up to date. - Social history:: Smoking status: Patient denies any tobacco usage or history of. - Family history:: not pertinent. - Hospitalizations: : No recent hospitalization is reported. ROS: 14:05 Constitutional: Negative for fever, chills, and weight loss, Eyes: Negative for injury, rn pain, redness, and discharge, ENT: Negative for injury, pain, and discharge, Neck: Negative for injury, pain, and swelling, Cardiovascular: Negative for chest pain, palpitations, and edema, Respiratory: Negative for shortness of breath, cough, wheezing, and pleuritic chest pain, Abdomen/GI: Negative for abdominal pain, nausea, vomiting, diarrhea, and constipation, MS/Extremity: Negative for injury and deformity, Skin: Negative for injury, rash, and discoloration, Neuro: Negative for weakness, numbness, tingling Exam: 14:05 Constitutional: This is a well developed, well nourished patient who is awake, alert, rn and in no acute distress. Head/Face: Normocephalic, atraumatic. Eyes: Pupils equal round and reactive to light, extra-ocular motions intact. Lids and lashes normal. Conjunctiva and sclera are non-icteric and not injected. Cornea within normal limits. Periorbital areas with no swelling, redness, or edema. Cardiovascular: Regular rate and rhythm . No pulse deficits. Respiratory: No increased work of breathing, no retractions or nasal flaring. Abdomen/GI: soft, non-tender MS/ Extremity: Pulses equal, no cyanosis. Neurovascular intact. Full, normal range of motion. Equal circumference. Neuro: Awake and alert, GCS 15, oriented to person, place, time, and situation. Cranial nerves II-XII grossly intact. Motor strength 5/5 in all extremities. Sensory grossly intact. 14:41 ECG was reviewed by the Attending Physician. rn Vital Signs: 12:45 BP 123 / 70; Pulse 90; Resp 16 S; Temp 98.9(TE); Pulse Ox 100% on R/A; Weight 68.04 kg ca1 (R); Height 5 ft. 3 in. (160.02 cm) (R); 14:43 BP 101 / 85; Pulse 81; Resp 16; Pulse Ox 100% on R/A; Pain 0/10; iw 12:45 Body Mass Index 26.57 (68.04 kg, 160.02 cm) ca1 Orchard Coma Score: 12:45 Eye Response: spontaneous(4). Verbal Response: oriented(5). Motor Response: obeys ca1 commands(6). Total: 15. MDM: 12:42 Patient medically screened. rn 14:55 Differential diagnosis: seizure. Data reviewed: vital signs, nurses notes, lab test rn result(s), EKG, and as a result, I will admit patient. Counseling: I had a detailed discussion with the patient and/or guardian regarding: the historical points, exam findings, and any diagnostic results supporting the discharge/admit diagnosis, lab results, the need for further work-up and treatment in the hospital. Response to treatment: the patient's symptoms have mildly improved after treatment, and as a result, I will admit patient. Admission orders: after a detailed discussion of the patient's condition and case, the admit orders are written by me. ED course: Consulted with Kristy German, requests depakote load 15mg/kg, then depakote 250mg bid, will admit to Dr. Avalos and observe in hospital. . 02/13 12:51 Order name: CBC with Diff; Complete Time: 14:36 rn 02/13 12:51 Order name: Basic Metabolic Panel; Complete Time: 14:36 rn 02/13 12:51 Order name: Urine Drug Screen; Complete Time: 14:36 rn 02/13 12:51 Order name: Urine Microscopic Only; Complete Time: 14:36 rn 02/13 14:09 Order name: Urine Dipstick--Ancillary (enter results); Complete Time: 14:36 bd 02/13 14:09 Order name: Urine --Ancillary (enter results); Complete Time: 14:36 bd 02/13 12:51 Order name: IV Start; Complete Time: 14:10 rn 02/13 12:51 Order name: Urine Test (obtain specimen); Complete Time: 14:10 rn 02/13 12:51 Order name: EKG; Complete Time: 12:52 rn 02/13 15:38 Order name: CONS Physician Consult EDWA 02/13 16:52 Order name: Diet Regular; Complete Time: 16:53 mh5 02/13 12:51 Order name: Urine Dipstick-Ancillary (obtain specimen); Complete Time: 14:10 rn 02/13 12:51 Order name: EKG - Nurse/Tech; Complete Time: 14:22 rn 02/13 13:23 Order name: Labs - recollect needed; Complete Time: 14:09 bd EC:41 Rate is 83 beats/min. Rhythm is regular. QRS Burns is Normal. UT interval is normal. QRS rn interval is normal. QT interval is normal. No Q waves. T waves are Normal. No ST changes noted. Clinical impression: NSR w/ Non-specific ST/T Changes. Interpreted by me. Reviewed by me. Administered Medications: 14:10 Drug: Keppra 1000 mg Route: IV; Rate: calculated rate; Site: left jugular; iw 14:25 Follow up: IV Status: Completed infusion iw 14:10 Drug: NS 0.9% 500 ml Route: IV; Rate: bolus; Site: left jugular; iw 15:00 Follow up: IV Status: Completed infusion iw 15:13 Drug: Depakote 1000 mg Route: PO; iw 17:27 Follow up: Response: No adverse reaction iw Disposition: 02/14/20 14:56 Hospitalization ordered by Chicho Avalos for Observation. Preliminary diagnosis is Epilepsy and recurrent seizures. - Bed requested for Telemetry/MedSurg (observation). - Status is Observation. aa5 - Condition is Stable. - Problem is an ongoing problem. - Symptoms have improved. Signatures: Dispatcher [employer] EDMS Harmony Brooke Diana, RN RN dw Lashawn Jimenez RN RN iw Moi Avalos MD MD rn Calderon, Audri RN RN aa5 Jannette Romero RN RN ca1 Corrections: (The following items were deleted from the chart) 17:02 14:56 Hospitalization Ordered by Chicho Avalos MD for Observation. Preliminary dw diagnosis is Epilepsy and recurrent seizures. Bed requested for Telemetry/MedSurg (observation). Status is Observation. Condition is Stable. Problem is an ongoing problem. Symptoms have improved. rn 17:49 17:02 02/14/2020 14:56 Hospitalization Ordered by Chicho Avalos MD for Observation. aa5 Preliminary diagnosis is Epilepsy and recurrent seizures. Bed requested for Telemetry/MedSurg (observation). Status is Observation. Condition is Stable. Problem is an ongoing problem. Symptoms have improved. dw
[2020-02-14] MEDS ORDERED: DIVALPROEX DR 250 MG TAB PO ONE (15:09)
--- NOTE | 2020-02-14 16:18 | P.HP ---
Certification for Inpatient Patient admitted to: Observation With expected LOS: <2 Midnights Practitioner: I am a practitioner with admitting privileges, knowledge of patient current condition, hospital course, and medical plan of care. Services: Services provided to patient in accordance with Admission requirements found in Title 42 Section 412.3 of the Code of Federal Regulations Patient History Date of Service: 02/14/20 Reason for admission: Epilepsy with breakthrough seizures History of Present Illness: 29 yo female who presents to ED after multiple seizures. She does not recall the events leading up to the seizures nor much of what occurred after. She states she had 1 seizure today, 2 yesterday, and 1 the day prior to that She has PMH: epilepsy which she has been following with Dr. German. She is currently taking Keppra. She reported he recently referred her to a Dr. Henley for further management of her difficult case. She states she has an appointment with him this . She has had decreased appetite for 1 week, but otherwise has felt like her normal self. She has been taking her Keppra as prescribed and has not missed a dose. She denies fever,chills, SOB, chest pain, n/v, abdominal pain ,rash, lesions, urinary complaints. In the ED, labs were unremarkable. Dr. German was consulted in the ED and recommended admission and adding depakote to patient's regimen. Allergies No Known Drug Allergies Allergy (Verified 08/21/19 23:48) Unknown No Known Allergies Allergy (Uncoded 10/03/15 07:25) Unknown Home medications list reviewed: Yes Home Medications: Levetiracetam [Keppra] 1 tab PO BID 08/21/19 Ferrous Sulfate 325 mg PO BID #60 tablet 08/22/19 Medroxyprogester [Provera*] 10 mg PO DAILY #30 tab 08/22/19 - Past Medical/Surgical History Diabetic: No -: Complex Partial Seizures, Neurology-Dr. 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 moist/pink, EOMI, Sclerae nonicteric Neck: Supple, 2+ carotid pulse no bruit, No LAD, Without JVD or thyroid abnormality Respiratory: Clear to auscultation bilaterally, Normal air movement Cardiovascular: Regular rate/rhythm, Normal S1 S2 Gastrointestinal: Normal bowel sounds, No tenderness Musculoskeletal: No tenderness Integumentary: No rashes Neurological: Normal speech, Normal tone, Cranial nerves 3-12 intact, Normal affect - Studies Laboratory Data (last 24 hrs) 02/14/20 14:05: Sodium 139, Potassium 3.9, BUN 8, Creatinine 0.49 L, Glucose 97 02/14/20 14:05: WBC 8.8, Hgb 12.8, Hct 38.3, Plt Count 234 Assessment and Plan - Plan Epilepsy, breakthrough seizures -does not seem to have some acute stressor/infection -Neurology consulted in ED -will bring patient in to hospital -loaded with depakote and keppra in ED -continue home Keppra -start depakote 250mg BID -will monitor closely overnight - Advance Directives Does patient have a Living Will: No Does patient have a Durable POA for Healthcare: No Time Spent Managing Pts Care (In Minutes): 55
[2020-02-14 18:22] VITALS: O2SAT 99; BMI 28.7
[2020-02-15] MEDS ORDERED: DIVALPROEX DR 500MG TAB PO SCH (09:00)
[2020-02-15] MEDS ORDERED: FERROUS SULFATE 325 MG TAB PO SCH (09:00)
[2020-02-15] MEDS ORDERED: levETIRAcetam 500 MG TAB PO SCH (09:00)
--- NOTE | 2020-02-15 12:25 | EKG ---
Test Date: 2020-02-14 Test Time: 14:16:02 Merchandising Consultant: EBER MEASUREMENT RESULTS: Intervals: Rate: 83 ID: [id number] QRSD: 86 QT: 380 QTc: 446 Hagerman: P: 17 ID: [id number] QRS: 25 T: 19 INTERPRETIVE STATEMENTS: Normal sinus rhythm Anterior infarct, age undetermined Abnormal ECG Compared to ECG 01/14/2020 20:36:33 Myocardial infarct finding now present Electronically Signed On 02-15-20 12:22:51 CDT by Merrill Guzman
--- NOTE | 2020-02-15 15:33 | P.DS ---
Admission Date: 02/14/20 Discharge Date: 02/15/20 Primary Care Provider: Unknown Disposition: ROUTINE DISCHARGE Discharge Condition: GOOD Reason for Admission: Epilepsy with breakthrough seizures Consultations: Neurology-Dr. German Brief History of Present Illness: 29 yo female who presents to ED after multiple seizures. She does not recall the events leading up to the seizures nor much of what occurred after. She states she had 1 seizure today, 2 yesterday, and 1 the day prior to that She has PMH: epilepsy which she has been following with Dr. German. She is currently taking Keppra. She reported he recently referred her to a Dr. Henley for further management of her difficult case. She states she has an appointment with him this . She has had decreased appetite for 1 week, but otherwise has felt like her normal self. She has been taking her Keppra as prescribed and has not missed a dose. She denies fever,chills, SOB, chest pain, n/v, abdominal pain ,rash, lesions, urinary complaints. In the ED, labs were unremarkable. Dr. German was consulted in the ED and recommended admission and adding depakote to patient's regimen. Hospital Course: Patient lists admitted overnight and started on Depakote in addition to her Keppra. She did not have any recurrence/witnessed seizures during her hospitalization. She was feeling well, tolerated the addition of Depakote, and was discharged home. She has an appointment tomorrow with a specialist from [place] who will be evaluating her for her difficult to control seizures. Vital Signs/Physical Exam: Temp Pulse Resp BP Pulse Ox 98.1 F 81 18 110/59 L 97 02/15/20 12:02/15/20 12:02/15/20 12:02/15/20 12:02/15/20 12:00 General: Alert, In no apparent distress HEENT: Atraumatic, PERRLA, EOMI Neck: Supple, JVD not distended Respiratory: Clear to auscultation bilaterally, Normal air movement Cardiovascular: Regular rate/rhythm, Normal S1 S2 Gastrointestinal: Normal bowel sounds, Soft and benign, Non-distended, No tenderness Musculoskeletal: No tenderness Integumentary: No rashes Neurological: Normal speech, Cranial nerves 3-12 intact, Normal affect Laboratory Data at Discharge: WBC 8.8 K/uL (4.3-10.9) 02/14/20 14:05 Hgb 12.8 g/dL (12.0-15.0) 02/14/20 14:05 Hct 38.3 % (36.0-45.0) 02/14/20 14:05 Plt Count 234 K/uL (152-406) 02/14/20 14:05 Sodium 139 mmol/L (136-145) 02/14/20 14:05 Potassium 3.9 mmol/L (3.5-5.1) 02/14/20 14:05 BUN 8 mg/dL (7-18) 02/14/20 14:05 Creatinine 0.49 mg/dL (0.55-1.3) L 02/14/20 14:05 Glucose 97 mg/dL (74-106) 02/14/20 14:05 Home Medications: Levetiracetam [Keppra] 1 tab PO BID 08/21/19 Ferrous Sulfate 325 mg PO BID #60 tablet 08/22/19 Divalproex Sodium [Depakote] 250 mg PO BID 30 Days #60 tablet. 02/15/20 New Medications: Divalproex Sodium [Depakote] 250 mg PO BID 30 Days #60 tablet. Patient Discharge Instructions: follow up with PCP within 1 week. Keep your neurology appointment as scheduled tomorrow. Diet: Regular Activity: no driving. Time spent managing pt's care (in minutes): 35
[2020-02-15 16:40] VITALS: BP 104/59; TEMP 97.6
--- NOTE | 2020-02-16 00:02 | CON ---
Reason For Consultation: Consultation called because of breakthrough seizures. History Of Present Illness: Ms. Hope is a 29-year-old, right-handed, patient, who has medi jesica refractory complex partial seizures and who is on Keppra monotherapy when she had 2 seizures on t january and 1 seizure on February 13. She was seen in [facility]. Head imaging showed no acute ischemic or hemorrhagic change. In the emergency room, she was continued on Keppra and given a load of Depakote and placed on 250 mg twice daily. Since her admission, no additional se izures. Complete blood count showed no abnormalities. Electrolytes, chemistry panel essentially nor mal. Urinalysis showed 5% epithelial cells, otherwise normal and toxicology screen was negative. patient denies poor compliance with antiepileptic medications. Denies any fever, sleep deprivation , or significant stressors. She has been followed in the clinic for quite a while and she has an pablo ointment in [facility] with Dr. Richard Henley for potential inpatient EEG monitoring vel or to possible surgery for epilepsy. The appointment is on , which is tomorrow. Past Medical History: Chronic anemia, medically refractory complex partial seizures. Allergies: NO KNOWN DRUG ALLERGIES. Social History: She denies alcohol, tobacco, or IV drug use. She has a child, who is healthy. Family History: No seizures in her family. Review of Systems: She denies any recent fevers, chills, nausea, vomiting, myalgias, arthralgias, psychiatric issues, or other issues on a 10-point systems review. Physical Examination: Vital Signs: Blood pressure 104 up to 119/59 to 67, pulse from 72 to 94, temperature 98.1, respirato ry rate 15 to 20. Weight 162 pounds, height 5 feet 3 inches. General: Ms. Hope is resting in bed. She is slightly sleepy after receiving a Depakote load, but s he is easily aroused and alert and oriented to person, place, situation, and time. Abdomen: She has good bowel sounds bilaterally. Abdomen is soft. Extremities: Show no edema or cyanosis. She has evidence of chronic bruising from prior gomez due t o seizures in the right arm and left arm. On cranial nerves, she is intact on 2 through 12. No foca l motor, sensory, coordination, or gait abnormalities. Reflexes 2+ upper and lower extremities. Assessment: Ms. Hope is a 29-year-old patient with medically refractory complex partial seizures, n ow on Keppra and Depakote. She does have a scheduled appointment with Dr. Richard Henley in [place] for inpatient EEG monitoring prior to possible epilepsy surgery, which may include a vagus nerve stimulat or or other devices. Plan: She may be discharged home on Depakote 250 mg twice daily, Keppra continued at the dosage of 7 50 mg twice daily, ferrous sulfate 325 mg twice daily, and she is actually discharged on 500 mg twice daily of Depakote. She may follow up with Dr. German in clinic in 1 month. WILFRED/MARIA ESTHER Voice ID: [id number] Report ID: [id number]
== END 2020-02-15 17:59 | disposition home or self-care (01) ==
LOC: ER 12:38 → ERHOLD 16:10 → 2ND 17:38
PROVIDERS: ADMIT Hospitalist; ATTEND Hospitalist
DX: G40.209 Localization-related (focal) (partial) symptomatic epilepsy and epileptic syndromes with complex partial seizures, not intractable, without status epilepticus (principal); Z79.899 Other long term (current) drug therapy; Z20.828 Contact with and (suspected) exposure to other viral communicable diseases; R94.31 Abnormal electrocardiogram [ECG] [EKG]
CPT/HCPCS: 96361; 93005; 85025; 80048; 36415; 81025; 80307 ×8; 96374; 99285; U0002; J1953; J7040; G0378 ×3; 81003; 81015

== ENCOUNTER 2020-04-02 11:05 | Emergency (ER) | payer OTHER ==
--- OUTSIDE RECORDS SUMMARY | 2020-04-02 11:07 | XMS REPORT | Clinical Summary ---
:1990 Author Organization [facility] Address [address] [place] [address] Care Team Providers Name Role Phone Asked, No Pcp Primary Care Provider Unavailable Allergies No Known Active Allergies Medications Medication Sig Dispensed Refills Start End Date Status Date levETIRAcetam 2 (two) times a 0 Active (KEPPRA) 750 MG day. 0 tablet cloBAZam (ONFI) Take 1 tablet 90 tablet 1 09/12/19 Active 10 mg tablet (10 mg total) by 0 21 mouth nightly for 180 days. levETIRAcetam Take 750 mg by 0 [...] for constipation for up to 30 days. divalproex Take 250 mg by 0 03/15/20 Disc ontinued (DEPAKOTE) 250 MG mouth 2 (two) 20 (Stop Taking at EC tablet times a day. 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 03/12/2020 Seizure 11/12/2019 Encounters Date Type Specialty Care Team Description 03/30/2020 Hospital Encounter Radiology Richard Henley MD Seizur e ([facility]) 03/30/2020 Telephone Neurology Richard Henley MD 03/30/2020 Travel 03/27/2020 Travel 03/15/2020 Travel 03/14/2020 Orders Only Neurology Maria E Prince Seizure ([facility] ) CLAUDIA Dotson (Primary Dx) 03/12/2020 - Hospital Encounter Nephrology Richard Henley MD 03/15/2020 03/12/2020 Orders Only Neurology Richard Henley MD 03/08/2020 Telephone Neurology Richard Henley MD 02/17/2020 Telephone Neurology Richard Henley MD 02/16/2020 Telemedicine Neurology Richard Henley MD Seizure ([facility] ) (Primary Dx) 02/14/2020 Telephone Neurology Richard Henley MD 01/18/2020 Travel 11/24/2019 Telephone Neurology Richard Henley MD 11/17/2019 Patient Outreach Quality Nola Sevilla RN 11/16/2019 Patient Outreach Quality Nola Sevilla RN 11/12/2019 - Hospital Encounter General Internal Shari Bailey Seiz ure ([facility]) 11/15/2019 Medicine MD Adolfo (Primary Dx) Caesar Maxwell MD Adenwala, Adrian Goldman MD 10/31/2019 Travel 10/24/2019 Travel after 04/02/2019 Medical History Medical History Date Comments Seizures ([facility]) Depression Social History Tobacco Use Types Packs/Day Years Used Date Never Smoker Smokeless Tobacco: Never Used Alcohol Use Drinks/Week oz/Week Comments Not Currently Sex Assigned at Date Recorded Not on file COVID-19 Exposure Response Date Recorded In the last month, have you been in contact with No / Unsure 03/30/2020 9:49 AM CDT someone who was confirmed or suspected to have Coronavirus / COVID-19? Last Filed Vital Signs Vital Sign Reading Time Taken Comments Blood Pressure 130/89 03/27/2020 12:00 PM CDT Pulse 73 03/27/2020 12:00 PM CDT Temperature 37 C (98.6 F) 03/15/2020 7:18 AM CDT Respiratory Rate 16 03/15/2020 7:18 AM CDT Oxygen Saturation 99% 03/15/2020 7:18 AM CDT Inhaled Oxygen Concentration - - Weight 70.3 kg (155 lb) 03/27/2020 12:00 PM CDT Height 160 cm (5' 3") 03/27/2020 12:00 PM CDT Body Mass Index 27.46 03/27/2020 12:00 PM CDT Plan of Treatment Date Type Specialty Care Team Description 04/12/2020 Telephone Consult Neurology Richard Henley M D [address] [facility] [address] [place], [place] [address] [phone] Health Maintenance Due Date Last Done Comments CERVICAL CANCER SCREENING 2010 INFLUENZA VACCINE 01/14/2020 Procedures Procedure Name Priority Date/Time Associated Comments Diagnosis PET BRAIN METABOLIC Routine 03/30/2020 1:51 Seizure (HCC) Res ults for this EVAL PM CDT procedure are i n the results section. POC GLUCOSE Routine 03/30/2020 12:29 Results for this PM CDT procedure are i n the results section. MRI BRAIN W WO Routine 03/27/2020 1:50 Seizure (HCC) Results for this CONTRAST PM CDT procedure are i n the results section. MAGNESIUM LEVEL Routine 03/12/2020 2:18 Results for this PM CDT procedure are i n the results section. ESTIMATED GFR Routine 03/12/2020 2:18 Results fo r this PM CDT procedure are i n the results section. COMPREHENSIVE Routine 03/12/2020 2:18 Results fo r this METABOLIC PANEL PM CDT procedure ar e in the results section. HC COMPLETE BLD COUNT Routine 03/12/2020 2:18 Re sults for this W/AUTO DIFF PM CDT procedure are i n the results section. CT HEAD WO CONTRAST Routine 03/12/2020 1:25 Resu lts for this PM CDT procedure are i n the results section. COVID-19 QUALITATIVE Routine 03/12/2020 11:53 Res ults for this PCR AM CDT procedure are i n the results section. UNMONITORED VIDEO-EEG STAT 11/15/2019 9:41 Re sults [...] are i n the results section. after 04/02/2019 Results PET Brain Metabolic Eval (03/30/2020 1:51 PM CDT) Specimen Narrative Performed At PROCEDURE: PET BRAIN METABOLIC EVAL HM RADIANT INDICATION: R56.9 Unspecified convulsion s, Seizures COMPARISON: MRI brain 03/27/2020 TECHNIQUE: Blood glucose measured at the time of injec tion was 86 mg/dL. The patient was injected IV with 8 mCi of 18F-FDG. Sana roximately one hour later, PET images of the brain were obtained. Cor responding low dose CT scanning was performed as part o f the attenuation correction process. FINDINGS: There is mild hypometabolism in the bilate ral mesial temporal lobes marginally more pronounced on the right . Remaining bilateral cerebral hemispheres demonstrate preserved c ortical edmondson matter metabolism. Subcortical structure s demonstrate normal metabolic activity. There is diffusely reduced cerebellar metabolism. IMPRESSION: 1.Mild hypometabolism in the bilateral mesial temporal lobes is equivocal for epileptogenic foci in a pr esumed interictal study. 2.Diffuse cerebellar hypometabolism sugg ests a pharmacologic effect. [facility]-[id number] Procedure Note Interface, Radiology Results Incoming - 03/30/2020 2:45 PM CDT PROCEDURE: PET BRAIN METABOLIC EVAL INDICATION: R56.9 Unspecified convulsion s, Seizures COMPARISON: MRI brain 03/27/2020 TECHNIQUE: Blood glucose measured at the time of injection was 86 mg/dL. The patient was injected IV with 8 mCi of 18F-FDG. Approximately one hour later, PET images of the brain were obtained. Corresponding low dose CT scanning was performed as part of the attenuation correction process. FINDINGS: There is mild hypometabolism in the bilateral mesial temporal lobes marginally more pronounced on the right. Remaining bilateral cerebral hemispheres demonstrate preserved cortical edmondson matter metabolism. Subcortical structures demon strate normal metabolic activity. There is diff usely reduced cerebellar metabolism. IMPRESSION: 1.Mild hypometabolism in the bilateral m esial temporal lobes is equivocal for epileptogenic foci in a presumed interictal study. 2.Diffuse cerebellar hypometabolism sugg ests a pharmacologic effect. [facility]-[id number] Performing Organization Address City/[facility]/ZIP Code Phon e Number [facility] [address] [place] [id number] POC glucose (03/30/2020 12:29 PM CDT) Pathologist Sig nature POC glucose 86 65 - 99 mg/dL [facility] Comment: HOSPITAL Duplex Trimmer Name: Holly Hobbs Device ID: [id number] Chartable: No Action Needed Specimen Blood Performing Organization Address City/State/ZIP Code Phon e Number [facility] DEPARTMENT OF PATHOLOGY AND [address] [place] [phone] [facility]INE [address] [address] MRI Brain W Wo Contrast (03/27/2020 1:50 PM CDT)Only the most recent of2 resultswithin the time period is included. Specimen Narrative Performed At This result has an attachment that is no t available. EXAMINATION: MRI BRAIN W WO [facility] CLINICAL HISTORY: R56.9 Unspecified convulsions, Sei zures COMPARISON: Brain MRI on 11/13/[address] on 03/12/20 20. TECHNIQUE: High-resolution brain MRI wit hout and with intravenous gadolinium contrast acquired using 7T MRI with 1Tx/32Rx head coil. Acquired sequences include MPRAGE, [id number], T2 JAEL, T2 FLAIR, SWI, and DTI reviewed in multiple planes. FINDINGS: Artifacts obscure ventral aspects of cinthya ateral temporal lobes and cerebellum. Patient motion obscures some of the acquired images. Multiple small left more than right para falcine dural calcifications with susceptibility effect. 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 Hippocampi are symmetric and within norm al limits in signal and configuration with no evidence of mesial temporal sclerosis. No evidence of edmondson matter heterotopia or cortical dysplasia. No evidence of acute infarction, hemorrh age, mass lesion, or abnormal enhancement. Ventricles, sulci, and cisterns are norm al in size and configuration. No extra- axial fluid collection. Flow voids of the major intracranial vessels are intact. IMPRESSION: No structural abnormality identified to explain patien t's seizures. [facility]-[id number] Procedure Note [facility], Radiology Results Incoming - 03/28/2020 2:52 PM CDT EXAMINATION: MRI BRAIN W WO CONTRAST CLINICAL HISTORY: R56.9 Unspecified con vulsions, Seizures COMPARISON: Brain MRI on 11/13/[address] on 03/12/2020. TECHNIQUE: High-resolution brain MRI wit hout and with intravenous gadolinium contrast acquired using 7T MRI with 1Tx/32Rx head coil. Acquired sequences include MPRAGE, [id number], T2 JAEL, T2 FLAIR, SWI, and DTI reviewed in multiple planes. FINDINGS: Artifacts obscure ventral aspects of cinthya ateral temporal lobes and cerebellum. Patient motion obscures some of the acquired images. Multiple small left more than right para falcine dural calcifications with susceptibility effect. 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 Hippocampi are symmetric and within norm al limits in signal and configuration with no evidence of mesial temporal sclerosis. No evidence of edmondson matter heterotopia or cortical dysplasia. No evidence of acute infarction, hemorrh age, mass lesion, or abnormal enhancement. Ventricles, sulci, and cisterns are norm al in size and configuration. No extra- axial fluid collection. Flow voids of the major intracranial vessels are intact. IMPRESSION: No structural abnormality identified to explain patient's seizures. [facility]-[id number] Performing Organization Address City/[facility] Phon e Number [facility] [address] [place] [address] Estimated GFR (03/12/2020 2:18 PM CDT)Only the most recent of4 resultswithin the time period is included. Estimated GFR >=90 mL/min/1.73 [facility] Comment: m2 HOSPITAL Catergory Units Interpretation G1 [...] published in 2014. Specimen Performing Organization Address City/[facility] Phon e Number [facility] DEPARTMENT OF PATHOLOGY AND [address], [place] [address] GENOMIC MEDICINE [place] [phone] [place] [address] CBC with platelet and differential (03/12/2020 2:18 PM CDT)Only the most recent of4 resultswithin the time period is included. WBC 9.85 4.50 - 11.00 [facility] k/[facility] RBC 5.00 4.20 - 5.50 [facility] HGB 14.1 12.0 - 16.0 [facility] g/dL [facility] HCT 43.3 37.0 - 47.0 % [facility] MCV 86.6 82.0 - 100.0 [facility] MCH 28.2 27.0 - 34.0 pg [facility] MCHC 32.6 31.0 - 37.0 [facility] g/dL [facility] RDW - SD 39.1 37.0 - 55.0 [facility] MPV 10.0 8.8 - 13.2 fL [facility] Platelet count 300 150 - 400 k/uL [facility] Nucleated RBC 0.00 /100 WBC [facility] Neutrophils 72.8 (H) 39.0 - 69.0 % [facility] Lymphocytes 18.6 (L) 25.0 - 45.0 % [facility] Monocytes 6.5 0.0 - 10.0 % [facility] Eosinophils 1.1 0.0 - 5.0 % [facility] Basophils 0.6 0.0 - 1.0 % [facility] Immature granulocytes 0.4Comment: 0.0 - 1.0 % [facility] "Immature HOSPITAL granulocytes" (promyelocytes , myelocytes, metamyelocytes ) Specimen Blood Performing Organization Address City/[facility] Phon e Number [facility] DEPARTMENT OF PATHOLOGY AND [address] [place] [address] [phone] [address] Magnesium level (03/12/2020 2:18 PM CDT) Pathologist Sig nature Magnesium 2.1 1.6 - 2.6 mg/dL [facility] Specimen Performing Organization Address City/[facility] Phon e Number [facility] DEPARTMENT OF PATHOLOGY AND [address] [place] [address] [phone] [address] Comprehensive metabolic panel (03/12/2020 2:18 PM CDT)Only the most recent of2 resultswithin the time period is included. Sodium 135 135 - 148 [facility] mEq/L [facility] Potassium 3.9 3.5 - 5.0 [facility] mEq/L [facility] Chloride 97 (L) 98 - 112 [facility] mEq/L [facility] CO2 23 (L) 24 - 31 mEq/L [facility] Anion gap 15@ANIO 7 - 15 mEq/L [facility] BUN 6 6 - 20 mg/dL [facility] Creatinine 0.51 0.50 - 0.90 [facility] mg/dL [facility] Glucose 117 (H) 65 - 99 mg/dL [facility] Calcium 10.0 8.3 - 10.2 [facility] mg/dL HOSPITAL Protein 8.3 6.3 - 8.3 [facility] Comment: g/dL [facility] [place] 4.6-7.0 g/dL 1 week 4.4-7.6 g/dL 7 months-1year 5.1-7.3 g/dL 1-2 years 5.6-7.5 g/dL >3 years 6.0-8.0 g/dL 18-150 6.3-8.3 g/dL Albumin 4.1 3.5 - 5.0 [facility] g/dL [facility] A/G ratio 1.0 0.7 - 3.8 [facility] Alkaline phosphatase 76 35 - 104 U/L [facility] AST 24 10 - 35 U/L [facility] ALT 23 5 - 50 U/L [facility] Total bilirubin 0.4 0.0 - 1.2 [facility] mg/dL [facility] Specimen Blood Performing Organization Address City/State/ZIP Code Phon e Number [facility] DEPARTMENT OF PATHOLOGY AND [address] [place], [place] [phone] GENOMIC MEDICINE [facility] [address] [place] [address] CT Head Wo Contrast (03/12/2020 1:25 PM CDT)Only the most recent of2 results within the time period is included. Specimen Narrative Performed At EXAMINATION: CT HEAD WO CONTRAST RADIANT COMPARISON: November 12, 2019 CLINICAL HISTORY Head trauma minor GCS> 13 high clinical risk initial exam. TECHNIQUE: Non-contrast CT scan of the head with thin- section contiguous transaxial images from the skull base to the vertex. CT scans are performed using radiation dose reduction techniques. Technical factors are evaluated and adjusted to ensure appropriate moderation of exposure. Automated dose property management bookkeeper nology is applied to adjust radiation exposure while achie ving a highly diagnostic quality image. FINDINGS: Nonenhanced emergency cranial CT was performed at appr oximately 1310 hours. The ventricular system and subarachnoid spaces are nor mal for the patient's age. There is no definite acute edema or hemorrhage or mass effect or midline shift or extra-axial lesion. EEG electrodes overlie the scalp. There is no interval change in the appea shankar of the brain. IMPRESSION: No acute intracranial abnormalities or interval change s in the appearance of the brain since November 11 20 [id number] Procedure Note Interface, Radiology Results Incoming - 03/12/2020 1:33 PM CDT EXAMINATION: CT HEAD WO CONTRAST COMPARISON: November 12, 2019 CLINICAL HISTORY Head trauma minor GCS > 13 high clinical risk initial exam. TECHNIQUE: Non-contrast CT scan of the h ead with thin-section contiguous transaxial images from the skull base to the vertex. CT scans are performed using radiation dose reduction techniques. Technical factors are evaluated and adjusted to ensure appropriate moderation of exposure. Automated dose management technology is applied to adjust radiation exposure while achievin g a highly diagnostic quality image. FINDINGS: Nonenhanced emergency cranial CT was per formed at approximately 1310 hours. The ventricular system and subarachnoid spaces are normal for the patient's age. There is no definite acute edema or hemo rrhage or mass effect or midline shift or extra-axial lesion. EEG electrodes overlie the scalp. There is no interval change in the appea shankar of the brain. IMPRESSION: No acute intracranial abnormalities or i nterval changes in the appearance of the brain since November 12, 2019 [facility]-[id number] Performing Organization Address [facility] Phon e Number [facility] [address] [place] [address] COVID-19 qualitative PCR (03/12/2020 11:53 AM CDT) Interpretation Negative results do not prec lude 2019-nCoV infection and should not be used as the sole basis for treatment or other patient management decisions. Negative results must be combined with clinical observations, patient history, and epidemiological [facility] information. [facility] COVID-19 qualitative Not-Detected Not-Detecte [facility]ARD PCR result d [facility] COVID-19 qualitative See link below for WILLARD PCR PDF Lab VOODOO ReportComment: Case HOSPITAL Number: [id number] Specimen Nasal swab Performing Organization Address [facility] Phon e Number [facility] DEPARTMENT OF PATHOLOGY AND [address] [place] [phone] GENOMIC MEDICINE [address] [address] [facility] Continuous EEG monitoring (11/15/2019 9:41 AM CDT) [...] time period is included. Manual differential PERFORMED [facility] Neutrophils 51.0 39.0 - 69.0 % [facility] Lymphocytes 34.0 25.0 - 45.0 % [facility] Monocytes 13.0 (H) 0.0 - 10.0 % [facility] Eosinophils 2.0 0.0 - 5.0 % [facility] Basophils 0.0 0.0 - 1.0 % [facility] Metamyelocytes 0 % [facility] Promyelocytes 0 % [facility] Platelet slide review Sana adequate [facility] Anisocytosis Moderate [facility] Ovalocytes Moderate [facility] Enlarged platelets Moderate (A) [facility] Specimen Performing Organization Address [facility] Phon e Number [facility] DEPARTMENT OF PATHOLOGY AND [address] [place] [phone] [address] Basic metabolic panel (11/15/2019 4:00 AM CDT)Only the most recent of2 results within the time period is included. Pathologist Sig nature Sodium 135 135 - 148 mEq/L [facility] Potassium 3.4 (L) 3.5 - 5.0 mEq/L [facility] Chloride 103 98 - 112 mEq/L [facility] CO2 21 (L) 24 - 31 mEq/L [facility] Anion gap 11@ANIO 7 - 15 mEq/L [facility] BUN 9 6 - 20 mg/dL [facility] Creatinine 0.48 (L) 0.50 - 0.90 mg/dL [facility] Glucose 95 65 - 99 mg/dL [facility] Calcium 9.2 8.3 - 10.2 mg/dL [facility] Specimen Blood Performing Organization Address City/[facility] Phon e Number [facility] DEPARTMENT OF PATHOLOGY AND [address] [place], [place] [phone] [place] [phone] [place] [address] Continuous EEG monitoring (11/15/2019 1:22 AM CDT) [...] level 20 (L) 37 - 145 ug/dL [facility] Iron binding capacity 335 200 - 400 ug/dL [facility] % Saturation 6.0 (L) 15.0 - 38.0 % [facility] Specimen Blood Performing Organization Address City/[facility] Phon e Number [facility] DEPARTMENT OF PATHOLOGY AND [address] [place] [address] [phone] [address] Ferritin level (11/13/2019 4:00 AM CDT) Pathologist Sig nature Ferritin level <13 (A) 13 - 150 ng/mL [facility] Specimen Blood Performing Organization Address [facility] Phon e Number [facility] DEPARTMENT OF PATHOLOGY AND [address] [place] [phone] [facility] MEDICINE [address] [address] ECG 12 lead (11/12/2019 9:10 PM CDT) Pathologist Sig nature Ventricular rate 81 [facility] Atrial rate 81 [facility] MA interval 164 [facility] QRSD interval 84 [facility] QT interval 386 [facility] QTC interval 448 [facility] P axis 1 52 [facility] QRS axis 1 4 [facility] T wave axis 13 [facility] MUSE EKG impression Normal sinus [facility] MUSE rhythm-Normal ECG-No previous ECGs available-Electronicall y Signed By Adrian Ibarra MD ([id number]) on 11/13/2019 8:07:25 PM Specimen Narrative Performed At This result has an attachment that is no t available. Performing Organization Address City/[facility]/ZIP Code Phon e Number [facility] MUSE [address] [place] [phone] Syphilis total antibody (11/12/2019 7:40 PM CDT) Pathologist [facility] Syphilis total Non-reactiveComment Non-reactive [facility] antibody : No serological HOSPITAL evidence of syphilis infection. Specimen Serum Performing Organization Address City/[facility] Phon e Number [facility] DEPARTMENT OF PATHOLOGY AND [address] [place] [address] [phone] [address] HIV Ag/Ab combination (11/12/2019 7:40 PM CDT) Pathologist [facility] HIV Ag/Ab combination Non-reactive Non-reactive [facility] Specimen Blood Performing Organization Address City/[facility]/ZIP [facility] Phon e Number [facility] DEPARTMENT OF PATHOLOGY AND [address] [place] [address] [phone] [address] Homocystine, plasma (11/12/2019 7:40 PM CDT) Pathologist [facility] Homocysteine 10.3 0.0 - 15.0 [facility] Comment: umol/L HOSPITAL The risk for coronary vascular disease increases progr essively with homocysteine concentration. A 3.4 times greater risk is associated with a homocysteine concentration of greate r than 15.8 umol/L as compared to a concentration below 14.1 umol/L. Specimen Blood Performing Organization Address City/[facility]/ZIP Code Phon e Number [facility] DEPARTMENT OF PATHOLOGY AND [address] [place] [address] [phone] [address] MARCELINO titer (11/12/2019 7:40 PM CDT) Pathologist Sig nature MARCELINO titer 1:160 (A) Not-Detected [facility] MARCELINO pattern Homogeneous (A) Not-Detected [facility] Specimen Blood Performing Organization Address [facility] Phon e Number [facility] DEPARTMENT OF PATHOLOGY AND [address] [place] [address] [phone] [address] Vitamin D 25 hydroxy level (11/12/2019 7:40 PM CDT) Vitamin D, 13.6 (L) 30.0 - 150.0 [facility] 25-hydroxy Comment: ng/mL HOSPITAL This assay reports [...] alternative methods. Specimen Blood Performing Organization Address [facility] Phon e Number [facility] DEPARTMENT OF PATHOLOGY AND [address] [place] [address] [phone] [address] Prolactin level (11/12/2019 7:40 PM CDT) Pathologist Sig nature Prolactin 22 5 - 23 ng/mL [facility] Specimen Performing Organization Address City/[facility]/ZIP [facility] Phon e Number [facility] DEPARTMENT OF PATHOLOGY AND [address] [place] [address] [phone] [address] Sedimentation rate (11/12/2019 7:40 PM CDT) Pathologist Sig nature Sedimentation rate 9 0 - 20 mm/hr [facility] Specimen Blood Performing Organization Address City/[facility] Phon e Number [facility] DEPARTMENT OF PATHOLOGY AND [address] [place] [address] [phone] [address] Rheumatoid factor (11/12/2019 7:40 PM CDT) Pathologist Sig nature Rheumatoid factor <10 0 - 13 IU/mL [facility] Specimen Blood Performing Organization Address [facility] Phon e Number [facility] DEPARTMENT OF PATHOLOGY AND [address] [place] [phone] [address] C-reactive protein (11/12/2019 7:40 PM CDT) Pathologist Sig [facility] CRP <0.30 0.00 - 0.50 mg/dL [facility] Specimen Blood Performing Organization Address [facility] Phon e Number [facility] DEPARTMENT OF PATHOLOGY AND [address] [place] [address] [address] MARCELINO (11/12/2019 7:40 PM CDT) MARCELINO screen Positive (A) Negative [facility] Comment: HOSPITAL Test performed using [employer] DAPI MARCELINO kit (Indirect Immunofluorescence Assay) for Anti-Nuclear Antibody on [employer] 160 Analyzer. Specimen Blood Performing Organization Address [facility] Phon e Number [facility] DEPARTMENT OF PATHOLOGY AND [address] [place] [address] Thyroid stimulating hormone (11/12/2019 7:40 PM CDT) Pathologist Sig [facility] TSH 2.21 0.27 - 4.20 uIU/mL [facility] ITAL Specimen Blood Performing Organization Address City/[facility] Phon e Number [facility] DEPARTMENT OF PATHOLOGY AND [address] [place] [address] [phone] [address] T4, free (11/12/2019 7:40 PM CDT) Pathologist Sig [facility] T4, free 1.2 0.9 - 1.7 ng/dL [facility] L Specimen Blood Performing Organization Address City/[facility]/ZIP Code Phon e Number [facility] DEPARTMENT OF PATHOLOGY AND [address] [place] [address] [phone] [address] Folate level (11/12/2019 7:40 PM CDT) Pathologist Sig [facility] Folate 9.3 4.8 - 24.2 ng/mL [facility] Specimen Serum Performing Organization Address [facility] Phon e Number [facility] DEPARTMENT OF PATHOLOGY AND [address] [place] [phone] [place] [address] Vitamin B12 level (11/12/2019 7:40 PM CDT) Vitamin B12 466 211 - 946 ERI [facility] Comment: pg/mL HOSPITAL Significant overlap exists between normal and deficien cy states. However, most patients with deficiencies will have Ser um B12 <200 pg/mL. Specimen Serum Performing Organization Address [facility] Phon e Number [facility] DEPARTMENT OF PATHOLOGY AND [address] [place] [address] Creatine kinase, total (CPK) (11/12/2019 7:40 PM CDT) Pathologist Sig [facility] Creatine kinase 56 26 - 192 U/L [facility] L Specimen Performing Organization Address City/[facility] Phon e Number [facility] DEPARTMENT OF PATHOLOGY AND [address] [place] [address] [phone] [address] Cortisol level, random (11/12/2019 7:40 PM CDT) Cortisol, random 2 ug/dL [facility] Comment: HOSPITAL Reference Ranges are not established for non-timed Cor tisol levels. Reference Range for Timed Cortisol: 6 - 10 AM 6 - 18 ug/d l 4 - 8 PM 3 - 11 ug/ dl Specimen Blood Performing Organization Address City/[facility] Phon e Number [facility] DEPARTMENT OF PATHOLOGY AND [address] [place] [address] [phone] [address] [address] Cervical Spine Wo Contrast (11/12/2019 6:12 PM CDT) Specimen Narrative Performed At EXAMINATION: CT CERVICAL SPINE WO CONTRA ST [facility] CLINICAL HISTORY: fall COMPARISON: None TECHNIQUE: [...] subluxation identif ied in the cervical spine. [facility]-[id number] Procedure Note Interface, Radiology Results Incoming - [...] subluxation identif ied in the cervical spine. [facility]-[id number] Performing Organization Address City/State/ZIP Code Phon e Number [facility] [address] [place] [address] CT Maxillofacial Wo Contrast (11/12/2019 6:09 PM [...] unre markable. The paranasal sinuses are clear. [facility]-[id number] Procedure Note Interface, Radiology Results Incoming - [...] unre markable. The paranasal sinuses are clear. [facility]-[id number] Performing Organization Address [facility] Phon e Number [facility] [address] [place] [address] XR Chest 1 Vw Portable (11/12/2019 5:35 [...] There is no acute cardiopulmonary dis ease. [id number] Procedure Note Interface, Radiology Results Incoming - [...] There is no acute cardiopulmonary dis ease. [id number] Performing Organization Address [facility] Code Phon e Number [facility] [address] [place] [address] Keppra (Levetiracetam) level (11/12/2019 5:04 PM CDT) Pathologist [facility] Levetiracetam 30 12 - 46 ug/mL [facility] Comment: INTERPRETIVE INFORMATION: Keppra (Levetiracetam) Therapeutic Range: 12-46 ug/mL Toxic: Not well Established Pharmacokinetics of levetiracetam are affected by lamberto l function. Adverse effects may include somnolence, weakness, head ache and vomiting. This levetiracetam (Keppra) immunoassay uses the [employer] reagents, which has known cross-reactivity with the dr norma sadler (Briviact) and may report inaccurate resu lts. Patients transitioning from levetiracetam to brivarace goldstein or those who are using both medications should not monitor drug concentrations with the Cater to u assay. These p atients should be monitored using a validated chromatographic methodology that distinguishes between drugs to determine drug con centrations. Performed by [facility], [address] [place] [address] [email or web address], Josué Barreto MD, Lab. Director Specimen Serum Performing Organization Address [facility] Phon e Number [facility] [address] [place] [address] [facility] [address] [place] [address] Alcohol level, blood (11/12/2019 5:04 PM CDT) Pathologist [facility] Alcohol None Detected mg/dL [facility] Comment: HOSPITAL Normal None Detected Legal Intoxication in [place] 80 mg/dL (0.08%) - Whole Blood Toxic Concentration 200 mg/dL (0.2%) Potentially Fatal 350 - 500 mg/dL (0. 35 - 0.5%) Alcohol percent None Detected % [facility] Specimen Blood Performing Organization Address City/[facility] Phon e Number [facility] DEPARTMENT OF PATHOLOGY AND [address] [place], [place] [phone] GENOMIC MEDICINE [address] [address] Urinalysis screen and microscopy, with reflex to culture (11/12/2019 2:44 PM CDT) Specimen site Clean catch [facility] Color, UA Straw [facility] Appearance, UA Hazy [facility] Specific gravity, UA 1.020 1.001 - 1.035 [facility] pH, UA 8.0 5.0 - 8.5 [facility] Protein, UA Negative Negative [facility] Glucose, UA Negative Negative [facility] Ketones, UA Negative Negative [facility] Bilirubin, UA Negative Negative [facility] Blood, UA Negative Negative [facility] Nitrite, UA Negative Negative [facility] Urobilinogen, UA <2.0 <2.0 [facility] Leukocyte esterase, Negative Negative [facility] Epithelial cells, UA 6 /HPF [facility] WBC, UA <1 0 - 4 /HPF [facility] RBC, UA None seen 0 - 5 /HPF [facility] Bacteria, UA Few None seen [facility] Yeast, UA None seen [facility] Yeast with None seen [facility] pseudohyphae, [facility] Specimen Urine Performing Organization Address City/State/[facility] Phon e Number [facility] DEPARTMENT OF PATHOLOGY AND [address] [place] [address] [phone] [address] hCG qualitative, urine screen (11/12/2019 2:44 PM CDT) Pathologist [facility] hCG qualitative, NegativeComment: [facility] urine Sensitivity of [facility] test: 25 mIU/mL Specimen Urine Performing Organization Address City/State/[facility] Phon e Number [facility] DEPARTMENT OF PATHOLOGY AND [address] [place], [place] [phone] [address] [address] Urine drugs of abuse screen (11/12/2019 2:44 PM CDT) Pathologist [facility] Amphetamine screen, Negative [facility] urine [facility] Barbiturate screen, Negative [facility] urine [facility] Benzodiazepine Negative [place] screen, urine [facility] Cocaine screen, urine Negative [facility] Methadone metabolite Negative WILLARD (EDDP), urine [facility] Opiates screen, urine Negative [facility] Oxycodone screen, Negative [place] urine [facility] Phencyclidine screen, Negative [place] urine [facility] Tricyclic screen, Negative [facility] urine [facility] Cannabinoid screen, Negative [facility] urine Comment: [facility] Drug screen minimum concentration of detectability [facility] Amphetamines 1000 ng/mL Barbiturates 200 ng/mL Benzodiazepines [...] requir ed. Specimen Urine Performing Organization Address City/[facility] Phon e Number [facility] DEPARTMENT OF PATHOLOGY AND [address] [place] [address] [phone] [address] Urine culture (11/12/2019 2:44 PM CDT) Pathologist Sig nature Urine culture SEE COMMENTComment: [facility] Bacteriuria screen [facility] negative. Specimen Performing Organization Address [facility] Phon e Number [facility] DEPARTMENT OF PATHOLOGY AND [address] [place] [address] [phone] [address] after 04/02/2019 7753 1 Advance Directives For more information, please contact: [phone] Type Date Recorded Patient Sugar Presser Explanati on Advance Directives, Living Will and Medical Power of Manager Media
--- OUTSIDE RECORDS SUMMARY | 2020-04-02 11:07 | XMS REPORT | Clinical Summary ---
:1990 Author Organization [facility] Address [address] [place] [address] Care Team Providers Name Role Phone Unavailable Primary Care Provider Unavailable Allergies No Known Allergies Medications Medication Sig Dispensed Refills Start Date End Date Status levETIRAcetam (KEPPRA) Take 1 tablet 60 tablet 2 05/19/2017 Active 1000 MG tablet (1,000 mg total) by mouth 2 (two) times daily. vitamin Take 1 tablet by 90 tablet 3 05/20/2017 Active w/hadflwq-odzh-zbbfmq mouth daily. ( PLUS) 27 mg iron- 1 mg Tab Active Problems Problem Noted Date Hypokalemia 05/18/2017 Acute encephalopathy 05/14/2017 Seizure disorder 05/14/2017 Leukocytosis 05/14/2017 Less than 8 weeks gestation of 05/14/2017 Social History Tobacco Use Types Packs/Day Years Used Date Never Smoker Alcohol Use Drinks/Week oz/Week Comments No Sex Assigned at Date Recorded Not on file Last Filed Vital Signs Not on file Plan of Treatment Not on file Results Not on fileafter 04/02/2019 7753 1 Advance Directives For more information, please contact: [phone] Code Status Date Activated Date Inactivated Comments Full Code 05/14/2017 10:10 PM 05/19/2017 2:55 PM This code status was determined by: Patient
--- OUTSIDE RECORDS SUMMARY | 2020-04-02 11:12 | XMS REPORT | Continuity of Care Document ---
:1990 Author Organization [facility] t Address [address] [place] [address] Care Team Providers Name Role Phone Asked, Pcp Primary Care Physician Unavailable Gaye MENDOZA Attending Clinician Niki RN, A Attending Clinician Unavailable Jeffrey BRITO L Attending Clinician Jung TAYLOR, A Attending Clinician Unavailable Berhane SMITH J Attending Clinician Doctor Unassigned, Name Attending Clinician Unavailable Rohit SMITH F Attending Clinician Rita SABA Attending Clinician Di TAYLOR Attending Clinician Unavailable Adolfo Bailey MD Attending Clinician Alissa MENDOZA Attending Clinician Adalgisa MENDOZA, Susi Attending Clinician Aleksandar MENDOZA Attending Clinician Magda Adam MD Attending Clinician BRANDO RODAS Attending Clinician Unavailable GAYE Admitting Clinician Unavailable ALISSA Admitting Clinician Unavailable Juliano DEJESUS Admitting Clinician Unavailable Payers Payer Name Policy Type Policy Effective Date Expiration Date Sour ce Number CIGNACIGNA OPEN [id number] 2019 [place] ACCESS/NETWORKxx 00:00:00 Methodis t [id number]/ 0-PresentHMO MEDICAIDMEDICAID [id number] 2019 [place] [id number] 00:00:00 Methodis t 0-PresentMedicai d Problems Condition Condition Condition Status Onset Resolution Last Treating Co mments Source Name Details Category Date Date Treatment Clinician Date 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 00:00: st with with 00 generaliza generaliza tion and tion and with with intractabl intractabl e epilepsy e epilepsy Seizure Seizure Disease Active [place] 5-30 [facility] 00:[facility]: st 00 Hypokalemi Hypokalemi Disease Active 2016-[address] [facility] Acute Acute Disease Active 2016-[address] [facility] encephalop encephalop 30 [place] kes - athy athy 00:00: Medical 00 Center Seizure Seizure Disease Active 2016-[address] [facility] [address] disorder disorder 07-14 [facility] 00 [place] Leukocytos Leukocytos Disease Active 2016-[address] is is 1 [facility] Less than Less than Disease Active 2016-[address] [facility] [address] 8 weeks 8 weeks 30 [facility] - gestation gestation 00:00: Medi jesica of of 00 Center Allergies, Adverse Reactions, Alerts Allergy Allergy Status Severity Reaction(s) Onset Inactive Treating Comm ents Source Name Type Date Date Clinician No Known DA Active U [facility] 9[facility]11 [facility] No Known DA Active U 2016- [facility] Allergie 1-24 [facility] 00:00: Jess 00 [facility] Social History Social Habit Start Date Stop Date Quantity Comments Source Sex Assigned At [facility] ethodist Exposure to Not sure [place] Metho dist SARS-CoV-2 (event) Tobacco use and 2020-03-27 2020-03-27 Never used [facility] ethodist exposure 00:00:00 00:00:00 Alcohol intake 2020-03-27 2020-03-27 Ex-drinker [facility] thodist 00:00:00 00:00:00 (finding) Smoking Status Start Date Stop Date Source Never smoker [place] Methodis t Medications Ordered Filled Start Stop Current Ordering Indication Dosage Frequency Signature Comments Components Source Medication Medication Date Date Medication? Clinician (SIG) Name Name divalproex 2019-06- No 250mg Q.5D Take 250 [place] (DEPAKOTE) 0- 10-01 mg by Methodi 250 MG EC 12:25: 00:[address] tablet 56 :00 (two) times a day. cloBAZam 2019-06- Yes 10mg QD Take 1 [place] (ONFI) 10 0- 03-30 tablet (10 Met hodi mg tablet 00:00: 23:59 mg total) st 00 :00 by mouth nightly for 180 days. levETIRAcet Yes Q.5D 2 (two) [place] ston am (KEPPRA) 8-08 times a Metho di 750 MG 00:00: day. st tablet 00 levETIRAcet 2019- No 750mg Q.5D Take 750 [place] am (KEPPRA) 11-14 06-02 mg by Method i 750 MG 17:12: 00:[address] tablet 15 :00 (two) times a day. levETIRAcet 2019- No 2250mg Q.5D Take 3 [place] (KEPPRA) 11-14 07-02 tablets Meth maude 750 MG 00:00: 23:59 (2,[address] tablet 00 :00 total) by mouth 2 (two) times a day for 30 days. B 2019-2019- No 1{tbl} QD Take 1 [place]z complex-vit 11-14 tablet by Me thodi carter 00:00: 23:[address] C-folic 00 :00 daily for acid 30 days. (FOLBEE PLUS 5 MG) 5 mg tablet per tablet cloBAZam 2019- No 10mg QD Take 1 [place] (ONFI) 10 11-14 tablet (10 Met hodi mg tablet 00:00: 23:59 mg total) st 00 :00 by mouth nightly for 30 days. ferrous No 325mg Q.5D Take 1 [place] sulfate 325 11-14 tablet Metho di (65 FE) MG 00:00: 23:59 ([address] tablet 00 :00 total) by mouth 2 (two) times a day with meals for 30 days. docusate No 100mg Q.5D Take 1 [place] [...] Time Observation Value Comments Source Systolic blood 2020-03-27 12:00:00 130 mm[Hg] [place] Scientologist pressure Diastolic blood 2020-03-27 12:00:00 89 mm[Hg] [place] Scientologist pressure Heart rate 2020-03-27 12:00:00 73 /min Enrique Piedra Body height 2020-03-27 12:00:00 160 cm Enrique Piedra Body weight 2020-03-27 12:00:00 70.308 kg Enrique Piedra BMI 2020-03-27 12:00:00 27.46 kg/m2 Enrique Piedra Body temperature 2020-03-15 07:18:41 37 Melody [place] Scientologist Respiratory rate 2020-03-15 07:18:41 16 /min Sonja Piedra Oxygen saturation in 2020-03-15 07:18:41 99 /min Enrique Piedra Arterial blood by Pulse oximetry Procedures Procedure Date / Time Performing Clinician Source Performed PET BRAIN METABOLIC EVAL 2020-03-30 13:51:58 Richard Huizar [place] Piedra POC GLUCOSE 2020-03-30 12:29:00 Pinky Huizarnina Nunez Meth odadriano MRI BRAIN W WO CONTRAST 2020-03-27 13:50:00 Huizar, Richard Piedra HC COMPLETE BLD COUNT 2020-03-12 14:18:00 Ulises Choudhary W/AUTO DIFF COMPREHENSIVE METABOLIC 2020-03-12 14:18:00 Ulises Choudhary PANEL ESTIMATED GFR 2020-03-12 14:18:00 Pinky Huizarnina Light odadriano MAGNESIUM LEVEL 2020-03-12 14:18:00 Huizar, Richard Light odadriano CT HEAD WO CONTRAST 2020-03-12 13:25:51 Ulises Choudhary COVID-19 QUALITATIVE PCR 2020-03-12 11:53:00 Ulises Choudhary UNMONITORED VIDEO-EEG 36 2019-11-15 09:41:23 Bina Bonds HRS 1 MIN-50 HRS CBC WITH PLATELET AND 2019-11-15 04:30:00 Adrian Diana DIFFERENTIAL Ebrahim MANUAL DIFFERENTIAL 2019-11-15 04:30:00 Adrian Diana Ebrahim BASIC METABOLIC PANEL 2019-11-15 04:00:00 Adrian Diana Ebrahim ESTIMATED GFR 2019-11-15 04:00:00 Adrian Diana Ebrahim UNMONITORED VIDEO DAILY 2019-11-15 01:22:22 Bina oBnds EEG SETUP 2019-11-14 00:26:44 Bina Bonds EEG (ROUTINE) 2019-11-13 07:46:23 Bina Bonds CBC WITH PLATELET AND 2019-11-13 04:00:00 Caesar Maxwell on Scientologist DIFFERENTIAL BASIC METABOLIC PANEL 2019-11-13 04:00:00 Caesar Maxwell on Scientologist TOTAL IRON BINDING 2019-11-13 04:00:00 Caesar Maxwell CAPACITY FERRITIN LEVEL 2019-11-13 04:00:00 Caesar Maxwell Met hodist ESTIMATED GFR 2019-11-13 04:00:00 Caesar Maxwell Met hodist MANUAL DIFFERENTIAL 2019-11-13 04:00:00 Caesar Maxwell MRI BRAIN W WO CONTRAST 2019-11-13 02:16:00 Bina Bonds CONSULT TO OSTOMY CARE 2019-11-12 23:40:27 Caesar Maxwell Scientologist NURSE ECG 12-LEAD 2019-11-12 21:10:47 Bina Bonds MARCELINO 2019-11-12 19:40:00 Bina Bonds FOLATE LEVEL 2019-11-12 19:40:00 Bina Bonds VITAMIN B12 LEVEL 2019-11-12 19:40:00 Bina Bonds Scientologist C-REACTIVE PROTEIN 2019-11-12 19:40:00 Bina Bonds on Scientologist HOMOCYSTINE, PLASMA 2019-11-12 19:40:00 Bina Bonds Scientologist CORTISOL LEVEL, RANDOM 2019-11-12 19:40:00 Bina Bonds Scientologist SEDIMENTATION RATE 2019-11-12 19:40:00 Bina Bonds on Scientologist RHEUMATOID FACTOR 2019-11-12 19:40:00 Bina Bonds Scientologist THYROID STIMULATING 2019-11-12 19:40:00 Bina Bonds Scientologist HORMONE T4, FREE 2019-11-12 19:40:00 Bina Bonds SYPHILIS TOTAL ANTIBODY 2019-11-12 19:40:00 Bina Bonds HIV AG/AB COMBINATION 2019-11-12 19:40:00 Bina Bonds Scientologist VITAMIN D 25 HYDROXY 2019-11-12 19:40:00 Bina Bonds Scientologist LEVEL CREATINE KINASE, TOTAL 2019-11-12 19:40:00 Shari Bailey on Scientologist (CPK) Adolfo PROLACTIN LEVEL 2019-11-12 19:40:00 Shari Bailey Meth odist Adolfo MARCELINO TITER 2019-11-12 19:40:00 Shari Bailey Meth odist Adolfo CT CERVICAL SPINE WO 2019-11-12 18:12:54 Shari Bailey Scientologist CONTRAST Adolfo CT MAXILLOFACIAL WO 2019-11-12 18:09:40 BaileyShari chase Enrique Cruzist CONTRAST Adolfo CT HEAD WO CONTRAST 2019-11-12 18:09:19 Leo Sharimayda Cruzist Adolfo XR CHEST 1 VW PORTABLE 2019-11-12 17:35:36 Shari Bailey on Scientologist Adolfo HC COMPLETE BLD COUNT 2019-11-12 17:04:00 Shari Bailey Scientologist W/AUTO DIFF [facility] COMPREHENSIVE METABOLIC 2019-11-12 17:04:00 Shari Bailey Scientologist PANEL [facility] ALCOHOL LEVEL, BLOOD 2019-11-12 17:04:00 Shari Bailey Scientologist Adolfo KEPPRA (LEVETIRACETAM) 2019-11-12 17:04:00 Shari Bailey on Scientologist LEVEL Adolfo ESTIMATED GFR 2019-11-12 17:04:00 Leo Sharimayda Nunez Meth odist Adolfo URINE CULTURE 2019-11-12 14:44:00 Keanu Flores Meth odist URINALYSIS SCREEN AND 2019-11-12 14:44:00 Keanu Flores Scientologist MICROSCOPY, WITH REFLEX TO CULTURE HCG QUALITATIVE, URINE 2019-11-12 14:44:00 Keanu Flores on Scientologist SCREEN URINE DRUGS OF ABUSE 2019-11-12 14:44:00 Flores, Keanu Domingo Nunez Scientologist SCREEN Plan of Care Planned Activity Planned Date Details Comments Source Future Scheduled 2020-01-14 INFLUENZA VACCINE Luz pinzon Scientologist Test 00:00:00 [code = INFLUENZA VACCINE] Future Scheduled 2010 Screening for Enrique Parks thodist Test 00:00:00 malignant neoplasm of cervix (procedure) [code = 705257655] Encounters Start End Encounter Admission Attending Care Care Encounter Source Date/Time Date/Time Type Type Clinicians Facility Department ID 2020-03-30 2020-03-30 Outpatient RICHARD HUIZAR [facility] [id number] [place] 00:00:00 00:00:[address] 2020-03-27 2020-03-27 Outpatient AGYE RICHARD [facility] [id number] [place] 00:00:00 00:00:[address] 2020-03-12 2020-03-15 Inpatient RICHARD HUIZAR [facility] [id number] [place] 00:00:00 00:00:[address] 2020-02-16 2020-02-16 Outpatient RICHARD HUIZAR [facility] [id number] [place] 00:00:00 00:00:[address] 2020-02-13 2020-02-13 Telephone [facility] [id number] 00:00:00 00:00:00 April Man RECEIVER/LABORER [id number] [facility] 4.2.7.2.686 MATERNAL [id number] & CHILD [address] [place] [address] 2020-01-18 2020-01-18 Transition Jen Feng 1.2.840.114 [id number] 00:00:00 00:00:00 of Care Adair Coleman [id number] [place] 4.2.7.2.686 [id number] 2020-01-16 2020-01-[address] [facility], [facility] [id number] 22:16:00 00:53:00 Pamela Leach [id number] [place] 4.2.7.2.686 [place] [id number] 2020-01-16 2020-01-16 Orders Doctor ELVIA 1.2.840.114 [id number] 00:00:00 00:00:00 Only Unassigned, MICHAELLE [id number] [facility] 4.2.7.2.686 [id number] 2019-11-29 2019-11-[address] [facility] 1.2.840.114 [id number] 13:51:42 18:42:00 Brittany Silver Hany [id number] [place] 4.2.7.2.686 [place] [id number] 2019-11-29 2019-11-[address] [facility] 1.2.840.114 [id number] 00:00:00 00:00:00 Ceciliayue Leach [id number] [place] 4.2.7.2.686 Professio [phone] [facility] 134 [facility] 2019-11-29 2019-11-29 Orders Doctor ELVIA 1.2.840.114 [id number] 00:00:00 00:00:00 Only Unassigned, MICHAELLE [id number] [facility] 4.2.7.2.686 [id number] 2019-11-12 2019-11-15 Inpatient [facility] [id number] [place] 00:00:00 00:00:[address] 2019-10-24 2019-10-24 [facility] 1.2.840.114 [id number] 14:33:37 23:59:00 Encounter Sj OCHOA [id number] MEDICAL 4.2.7.2.686 [place] [id number] 2019-10-11 2019-10-[address] [facility] [id number] 00:00:00 00:00:00 Cecilia Leach 350.1.13.10 [place] 4.2.7.2.686 Professio [id number] [facility] 134 [facility] 2019-10-06 2019-10-[address] [facility] 1.2.840.114 [id number] 08:13:12 15:30:52 ne Visit Cecilia Leach 350.1.13.10 [place] 4.2.7.2.686 Professio [id number] nal [address] [place] [address] 2019-08-12 2019-08-12 Case Admodesto MELETY 1.2.840.114 [id number] 00:00:00 00:00:00 Management Daina Leach [id number] [place] 4.2.7.2.686 Professio [id number] [address] 2019-08-12 2019-08-12 Telephone Admodesto MELETY [id number] 00:00:00 00:00:00 Daina Leach 350.1.13.10 [place] 4.2.7.2.686 Professio [phone] [address] 2019-08-10 2019-08-10 Office Kia MELETY 1.2.840.114 [id number] 14:12:35 15:35:54 Visit Daina Leach 350.1.13.10 [place] 4.2.7.2.686 Professio [id number] [address] Results Test Description Test Time Test Comments Results Result Sour e Comments PET Brain 2020-03-15 [facility] [place] Metabolic Eval 6 Radiology Results Met hodist 14:42:07 Incoming - 03/30/2020 2:45 PM CDTPROCEDURE: PET BRAIN METABOLIC EVALINDICATION: R56.9 Unspecified convulsions, SeizuresCOMPARISON: MRI brain 03/27/2020 TECHNIQUE: Blood glucose measured [...] preserved cortical edmondson matter metabolism. Subcortical structures demonstrate normal metabolic activity. There is diffusely reduced cerebellar metabolism. IMPRESSION: 1.Mild hypometabolism in the bilateral mesial temporal lobes is equivocal for epileptogenic foci in a presumed interictal study.2.Diffuse cerebellar hypometabolism suggests a pharmacologic effect.[facility]-[id number] P7 POC glucose 2020-03-30 12:39:28 Test Item Value Reference Range Interpretation Comme nts POC glucose (test code = 86 mg/dL 65-99 Ope rator Name: Holly Herrera ID: [id number]) [id number] able: No Action Needed Enrique MethodistCOVID-19 qualitative [id number] 19:18:13 Test Item Value Reference Range Interpretation Comments Interpretation (test Negative results do code = 5242071) not preclude 2019-nCoV infection and should not be used as the sole basis for treatment or other patient management decisions. Negative results must be combined with clinical observations, patient history, and epidemiological information. COVID-19 qualitative Not-Detected Not-Detected PCR result (test code = 88225-8) COVID-19 qualitative See link below for C ase Number: PCR (test code = PDF Lab Report [id number]) Enrique MethodistComprehensive metabolic [id number] 15:49:53 Test Item Value Reference Range Interpretation Comments Sodium (test code = 135 135- 148 mEq/L 2951-2) Potassium (test code = 3.9 3.5- 5.0 mEq/L 2823-3) Chloride (test code = 97 98- 112 mEq/L L 2075-0) CO2 (test code = 8-9) 23 24- 31 mEq/L L Anion gap (test code = 15@ANIO 7- 15 mEq/L 08747-2) BUN (test code = 3094-0) 6 mg/dL 6-20 Creatinine (test code = 0.51 mg/dL 0.5-0.9 2160-0) Glucose (test code = 117 mg/dL 65-99 H 2345-7) Calcium (test code = 10.0 mg/dL 8.3-10.2 93304-5) Protein (test code = 8.3 g/dL 6.3-8.3 -[place] n 2885-2) 4.6-7.0 g/dL1 week 4.4-7 .6 g/dL7 months-1y ear 5.1-7 .3 g/dL1-2 years 5.6-7 .5 g/dL>3 years 6.0-8 .0 g/kH30-267 6.3-8 .3 g/dL Albumin (test code = 4.1 g/dL 3.5-5 1751-7) A/G ratio (test code = 1.0 0.7-3.8 1759-0) Alkaline phosphatase 76 U/L 35-104 (test code = 6768-6) AST (test code = 1920-8) 24 U/L 10-35 ALT (test code = 1742-6) 23 U/L 5-50 Total bilirubin (test 0.4 mg/dL 0-1.2 code = 1975-2) Lab Interpretation (test Abnormal code = 25940-0) Enrique MethodistMagnesium [id number] 15:49:51 Test Item Value Reference Range Interpretation Comments Magnesium (test code = 47825-3) 2.1 mg/dL 1.6-2.6 [place] MethodistEstimated [id number] 15:49:51 Test Item Value Reference Range Interpretation Comments Estimated GFR (test >=90 mL/min/1.73 m2 [facility] Units code = 5488) InterpretationG 1 >=90 Normal or highG2 60-89 Mildly mwkajcgneJ0w 45-59 Mildly to mode rately tnrrbjtuzW7x 30-44 Moderately to severely decreasedG4 15-29 Severely decre asedG5 <15 Kidn ey failureThe eGFR was calculated usin g the Chronic Kidney Disease Epidemiology Co llaboration (CKD-EPI) equat ion. Interpretation is based on recommendations of the National Kidney Foundation-Kidn ey Disease Outcomes Qualit y Initiative (NKF-KDOQI) pub lished in 2014. Nunez MethodistCBC with platelet and [id number] 15:17:36 Test Item Value Reference Range Interpretation Comments WBC (test code = 11570-1) 9.85 4.50- 11.00 k/uL RBC (test code = 46777-3) 5.00 m/uL 4.2-5.5 HGB (test code = 718-7) 14.1 g/dL 12-16 HCT (test code = 4544-3) 43.3 % 37-47 MCV (test code = 787-2) 86.6 fL 82-100 MCH (test code = 785-6) 28.2 pg 27-34 MCHC (test code = 786-4) 32.6 g/dL 31-37 RDW - SD (test code = 39.1 fL 37-55 34547-7) MPV (test code = 28146-8) 10.0 fL 8.8-13.2 Platelet count (test code 300 150- 400 k/uL = 41937-8) Nucleated RBC (test code 0.00 /100 WBC = 13330-6) Neutrophils (test code = 72.8 % 39-69 H 67818-8) Lymphocytes (test code = 18.6 % 25-45 L 14844-4) Monocytes (test code = 6.5 % 0-10 02366-4) Eosinophils (test code = 1.1 % 0-5 43581-7) Basophils (test code = 0.6 % 0-1 88731-8) Immature granulocytes 0.4 % 0-1 "Immat ure (test code = 51445-3) granul ocytes" (promyelocytes, myelocytes, metamyelocytes) Lab Interpretation (test Abnormal code = 22432-4) [place] [facility] [id number] 13:30:31Hm Interface, Radiology Results 03/12/2020 1:33 PM CDTEXAMINATION: CT HEAD WO CONTRASTCOM PARISON: November 12, 2019CLINICAL HISTORY Head trauma minor GCS> 13 high clinical risk initial exam. TECHNIQUE: Non-contrast CT scan of the head with thin-section contiguous transaxial images from the skull base to the vertex. CT scans are performed using radiation dose reduction techniques. Technical factors are evaluated and adjusted to ensure appropriate moderation of exposure. Automated dose management technology is applied to adjust radiation exposure while achieving a highly diagnostic quality image.FINDINGS:Nonenhanced emergency cranial CT was performed at approximately 1310 hours.The ventricular system and subarachnoid spaces are normal for the patient's age.There is no definite acute edema or hemorrhage or mass effect or midline shift or extra-axial lesion.EEG electrodes overlie the scalp.There is no interval change in the appearance of the brain.IMPRESSION:No acute intracranial abnormalities or interval changes in the appearance of the brain since November 12, 2019[facility]-[id number] Scientologist Continuous EEG [id number] 17:34:53CONTINUOUS VIDEO-EEG MONITORING REPORT Patient Name: Heather Hope Date of : 1990 Gender: female Initial Study Start Date: 11/13/2019Initial Study Start Time: 5:07 Current Study Start Date: 11/15/2019Current Study Start Time: 00:00 Current Study End Date: 11/15/2019Current Study End Time: 7:33 IndicationSeizures Technical SummaryTechnique:Modifiedinternational 10/20 system of EEG electrode placement was [...] with the patients clinical activity recorded on videoand video captured clinical events were correlated with [...] temporal greater than left frontal cental temporal regions.Sleep Recording: Intermittent 3-4 Hz activity with sharp [...] independently. No seizures occurred. ICD-10 Code: R56.9[facility] MethodistANA [id number] 13:12:21 Test Item Value Reference Range Interpretation Comments MARCELINO titer (test code = 19944-1) 1:160 Not-Detected A MARCELINO pattern (test code = 00984-5) Homogeneous Not-Detected A Lab Interpretation (test code = Abnormal 53911-3) [place] [id number] 13:08:33 Test Item Value Reference Range Interpretation Comments MARCELINO screen (test code Positive Negative A Test p erformed using = 550) NOVA Lite DAPI MARCELINO kit (Indirect Immunofluoresce nce Assay) for Anti -Nuclear Antibody on Trinity-NobleA-Lyser 16 0 Analyzer. Lab Interpretation Abnormal (test code = 93987-9) [place] MethodistManual [id number] 08:57:11 Test Item Value Reference Range Interpretation Comments Manual differential (test code = PERFORMED 42399-7) Neutrophils (test code = 51.0 % 39-69 14411-3) Lymphocytes (test code = 34.0 % 25-45 19188-4) Monocytes (test code = 81894-5) 13.0 % 0-10 H Eosinophils (test code = 2.0 % 0-5 75291-9) Basophils (test code = 83792-5) 0.0 % 0-1 Metamyelocytes (test code = 0 % 740-1) Promyelocytes (test code = 0 % 783-1) Platelet slide review (test code Sana adequate = 24891-5) Anisocytosis (test code = 702-1) Moderate Ovalocytes (test code = 774-0) Moderate Enlarged platelets (test code = Moderate A 39357-0) Lab Interpretation (test code = Abnormal 31852-9) [place] MethodistContinuous EEG [id number] 07:42:19CONTINUOUS VIDEO- EEG MONITORING REPORT Patient Name: [...] regions independently. No seizures occurred. ICD-10 Code: R56.9[facility] [id number] 06:44:31 Test Item Value Reference Range Interpretation Comments Sodium (test code = 2951-2) 135 135- 148 mEq/L Potassium (test code = 2823-3) 3.4 3.5- 5.0 mEq/L L Chloride (test code = 2075-0) 103 98- 112 mEq/L CO2 (test code = 2027-9) 21 24- 31 mEq/L L Anion gap (test code = 31429-3) 11@ANIO 7- 15 mEq/L BUN (test code = 3094-0) 9 mg/dL 6-20 Creatinine (test code = 2160-0) 0.48 mg/dL 0.5-0.9 L Glucose (test code = 2345-7) 95 mg/dL 65-99 Calcium (test code = 13695-9) 9.2 mg/dL 8.3-10.2 Lab Interpretation (test code = Abnormal 86450-5) Nunez MethodistKeppra (Levetiracetam) [id number] 05:29:41 Test Item Value Reference Interpretation Comments Range Levetiracetam 30 ug/mL 12-46 INTERPRETIVE I NFORMATION: (test code = Keppra 4478-4) (Levetiracetam) Therapeutic Range: 12-46 u g/mL Toxic: Not wel l EstablishedPhar macokinetics of levetiracetam a re affected by renal function. Adverse effects may include andi nolence, weakness, heada justus and vomiting.This l evetiracetam (Keppra) immuno assay uses the [employer] reagents, which has known cross -reactivity with the drug brivar acetam (Briviact) and may report inaccurate resu lts. Patients transitioning f rom levetiracetam t o brivaracetam or those who ar e using both medications alejandra uld not monitor drug concentrat ions with the [employer] assay. These patients should be monitored using a validat ed chromatographic methodology that distinguis hes between drugs to determ ine drug concentrations. Performed by [facility] ,[address] [place] [address] 08 isx .[employer], Josué Barreto MD, Lab. Director Enrique MethodistVitamin D 25 hydroxy [id number] 15:46:04 Test Item Value Reference Range Interpretation [...] hods. Lab Interpretation Abnormal (test code = 75373-9) [place] MethodistContinuous EEG [id number] 07:19:24 CONTINUOUS VIDEO-EEG MONITORING REPORT Patient Name: Heather Hope Date of : 1990 Gender: female Initial Study Start Date: 11/13/2019Initial Study Start Time: 5: Current StudyStart Date: 11/13/2019Current Study Start Time: [...] regions independently. No seizures occurred. ICD-10 Code: R56.9[facility] Scientologist EEG (routine) - Baseline [id number] 06:43:32EEG RECORDING AWAKE & ASLEEP - Baseline [...] and agree with the above findings. Richard Huizar MDSsm Health Caremingo MethodistEC 12 [id number] 20:07:26 Test Item Value Reference Range Interpretation Comments Ventricular rate (test 81 code = 253) Atrial rate (test code = 81 255) MO interval (test code = 164 266) QRSD [...] available-Electronica lly Signed By Adrian Ibarra MD ([id number]) on 11/13/2019 8:07:25 PM [place] NancyistSyphilis total [id number] 10:13:08 Test Item Value Reference Range Interpretation Comments Syphilis total Non-reactive Non-reactive No serologica l antibody (test code evidence of syphilis = 6194) infection. [place] MethodistFerritin [id number] 07:54:01 Test Item Value Reference Range Interpretation Comments Ferritin level (test code = 2276-4) <13 13-150 A Lab Interpretation (test code = Abnormal 19421-7) [place] MethodadrianoTotal iron binding gtwppycx7737-71-90 07:50:12 Test Item Value Reference Range Interpretation Comments Iron level (test code = 2498-4) 20 ug/dL 37-145 L Iron binding capacity (test code = 335 ug/dL 607-861 0231-7) % Saturation (test code = 2502-3) 6.0 % 15-38 L Lab Interpretation (test code = Abnormal 61491-0) [place] MethodistSedimentation xtdf7312-83-90 22:03:32 Test Item Value Reference Range Interpretation Comments Sedimentation rate (test code = 9 0- 20 mm/hr 58264-7) [place] MethodadrianoHIV Ag/Ab rxdhaailkkc3793-92-59 21:46:22 Test Item Value Reference Range Interpretation Comments HIV Ag/Ab combination (test code Non-reactive Non-reactive = 5299) [place] MethodistVitamin B12 sdedr2468-07-87 20:56:33 Test Item Value Reference Range Interpretation Comments Vitamin B12 (test 466 pg/mL 211-946 Significan t overlap code = 2132-9) exists betwee n normal and deficiency states.However, most patients with deficiencies wi ll have Serum B12 <2 00 pg/mL. [place] MethodistFolate alhze4937-62-64 20:56:33 Test Item Value Reference Range Interpretation Comments Folate (test code = 2284-8) 9.3 ng/mL 4.8-24.2 [facility] MethodistT4, cnct9020-70-16 20:48:50 Test Item Value Reference Range Interpretation Comments T4, free (test code = 3024-7) 1.2 ng/dL 0.9-1.7 [facility] NancyistCortisol level, evlnso2857-76-68 20:48:37 Test Item Value Reference Range Interpretation Comments Cortisol, random 2 ug/dL Reference R anges are not (test code = 2143-6) establi shed for non-timed Cortisol levels .Reference Range for Timed Cortisol: 6 - 10 AM 6 - 18 ug/dl 4 - 8 PM 3 - 11 ug/ dl [facility] MethodistThyroid stimulating ocecoca1824-29-12 20:48:37 Test Item Value Reference Range Interpretation Comments TSH (test code = 3016-3) 2.21 0.27- 4.20 uIU/mL [place] MethodistProlactin aqukv4914-30-96 20:48:36 Test Item Value Reference Range Interpretation Comments Prolactin (test code = 2842-3) 22 ng/mL 5-23 [place] MethodistCreatine kinase, total (CPK)2019-11-12 20:42:35 Test Item Value Reference Range Interpretation Comments Creatine kinase (test code = 2157-6) 56 U/L 26-192 [place] MethodistC-reactive pbpqlby0603-65-21 20:42:35 Test Item Value Reference Range Interpretation Comments CRP (test code = 1988-5) <0.30 0-0.5 [place] MethodistRheumatoid fyavol2243-73-75 20:36:01 Test Item Value Reference Range Interpretation Comments Rheumatoid factor (test code = 76494-8) <10 0- 13 IU/mL [place] MethodistHomocystine, gtddsx5082-29-56 20:36:01 Test Item Value Reference Range Interpretation Comments Homocysteine (test 10.3 umol/L 0-15 The risk for coronary code = 74655-8) vascular dis ease increases progressively w ith homocysteine concentration. A 3.4 times greater r isk is associated wit h a homocysteine concentration o f greater than 15.8 umol/L as carlin red to a concentration below 14.1 umol/L. [facility] MethodistCT Cervical Spine Wo Idxopppv4892-37-81 18:17:20Hm Interface, Radiology Results 11/12/2019 6:20 PM [...] subluxation identified in the cervical spine.[facility]-[id number] [facility]ro[facility] hospitalCT Maxillofacial Wo Teuqzeln5289-42-52 18:15:46Hm Interface, Radiology Results 11/12/2019 6:18 PM [...] are unremarkable.The paranasal sinuses are clear.[facility]-[id number] Scientologist Alcohol level, skpqm8223-92-26 18:06:03 Test Item Value Reference Range Interpretation Comments Alcohol percent None Detected % Normal (test code = None Detec tedLegal 5643-2) Intoxication in [place] 80 mg/dL (0.08% ) - Whole BloodToxi c Concentration 200 mg/dL (0.2%)Potential ly Fatal 350 - 500 mg/dL (0.35 - 0 .5%) [place] [facility]roosevelt [facility] hospitalXR Chest 1 Vw Ihobiqxb0533-88-11 17:37:03Hm Interface, Radiology Results 11/12/2019 5:40 PM CDTEXAMINATION: XR CHEST 1 VW PORTABLECLINICAL HISTORY: SOBXR CHEST 1 VW PORTABLE images are submittedCOMPARISON: NONEFINDINGS:The cardiac silhouette is normal in size. The pulmonary vasculature is within normal limits. The lung zones have no focal area of consolidation. There is no pleural effusion or pneumothorax.IMPRESSION:1. Thereis no acute cardiopulmonary disease.[facility]-[id number] Scientologist Urinalysis screen and microscopy, with reflex to fdpxksh6283-88-07 16:10:59 Test Item Value Reference Range Interpretation Comments Specimen site (test code = Clean catch 2451489) Color, UA (test code = 5778-6) Straw Appearance, UA (test code = Hazy 5767-9) Specific gravity, UA (test code = 1.020 1.001-1.035 5811-5) pH, UA (test code = 5803-2) 8.0 5.0-8.5 Protein, UA (test code = 21383-9) Negative Negative Glucose, UA (test code = 01995-1) Negative Negative Ketones, UA (test code = 2514-8) Negative Negative Bilirubin, UA (test code = Negative Negative 5770-3) Blood, UA (test code = 5794-3) Negative Negative Nitrite, UA (test code = 5802-4) Negative Negative Urobilinogen, UA (test code = <2.0 <2.0 39336-2) Leukocyte esterase, UA (test code Negative Negative = 5799-2) Epithelial cells, UA (test code = 6 /HPF 5787-7) WBC, UA (test code = 5821-4) <1 0- 4 /HPF RBC, UA (test code = 13996-4) None seen 0- 5 /HPF Bacteria, UA (test code = Few None seen 63364-7) Yeast, UA (test code = 87625-9) None seen Yeast with pseudohyphae, UA (test None seen code = 13138-2) [facility] drugs of abuse dsenfa1598-73-12 15:33:59 Test Item Value Reference Interpretation Comments Range Amphetamine screen, Negative urine (test code = 3349-8) Barbiturate screen, Negative urine (test code = 3377-9) Benzodiazepine Negative screen, urine (test code = 3390-2) Cocaine screen, Negative urine (test code = 3397-7) Methadone Negative metabolite (EDDP), urine (test code = 87941-6) Opiates screen, Negative urine (test code = 1829-4) Oxycodone screen, Negative urine (test code = 57403-4) Phencyclidine Negative screen, urine (test code = 3936-2) Tricyclic screen, Negative urine (test code = 75994-3) Cannabinoid screen, Negative Drug scr een minimum [...] efinitive testing is requ ired. [facility] MethodistUrine iqplcny3142-87-46 15:28:27 Test Item Value Reference Range Interpretation Comments Urine culture (test SEE COMMENT Bacteriu landry screen code = 1057406) negative. [facility] MethodisthCG qualitative, urine spwmvt8514-10-98 15:26:18 Test Item Value Reference Range Interpretation Comments hCG qualitative, Negative Sensitivity of HCG test: urine (test code = 25 mIU/mL 6-3) [facility] MethodistRPR Frxakwrbpyt4310-66-02 16:47:08 Test Item Value Reference Range Interpretation [...] = 06-14-2020 N Expiration Dt) Thyroid Stimulating Gebthma7476-93-61 06:31:44 Test Item Value Reference Range Interpretation Comments TSH (test code = TSH) 3.830 mIU/mL 0.270-4.200 Lipid Avtiz1333-20-68 06:24:40 Test Item Value Reference Range Interpretation Comments Cholesterol Total 152 mg/dL 0-200 RISK OF HE ART (test code = DISEASEPublishe d by Cholesterol Total) [place] [employer] Marcelino lyte Optimal Borderl ine [...] LDL/HDL Ratio=L DL Calc/HDL Chol Urine Drug Nvaypc2393-08-55 21:53:06 Test Item Value Reference Range Interpretation [...] if desired . Urinalysis with Culture, if ngdzmhlco3158-97-61 21:40:53 Test Item Value Reference Range Interpretation [...] Indicated Not Indicated Micro Ind?) Comprehensive Metabolic Duuux1548-44-20 21:34:15 Test Item Value Reference Range Interpretation [...] = A/G 1.6 ratio N Ratio) Alcohol Dvcoo3171-61-43 21:34:15 Test Item Value Reference Range Interpretation Comments Ethanol Level (test <0.00 g/dL 0.00-0.01 Intoxica vandana 0.080 g/dL code = Ethanol or more Level) Ethanol Inst (test <0 N code = Ethanol Inst) Comprehensive Metabolic Dpwoi2893-14-29 21:34:15 Test Item Value Reference Range Interpretation [...] National Kidney Foundation, http://nkdep.ni h.gov Comprehensive Metabolic Lunbn4956-16-98 21:34:15 Test Item Value Reference Range Interpretation [...] ag e have not been validated by [facility] MDRD study and should be interpreted [...] ag e have not been validated by [facility] MDRD study and should be interpreted wit h caution. eGFR R esult Interpretation: eGFR > or = 60 is in the Normal RangeeGF R < 60 may mean kid shannan diseaseeGFR < 1 5 may mean kidney failure Rang es recommended by the National Kidney Foundation, http://nkdep.ni h.gov Complete Blood Count with Icicebrsqpsy9423-14-58 21:15:24 Test Item Value Reference Range Interpretation [...] code = IPF) 0 % N Automated Fafifhqjdohd2810-13-91 21:15:24 Test Item Value Reference Range Interpretation Comments Neutro Auto (test code = Neutro 54.3 % 36.0-70.0 Auto) Lymph Auto (test code = Lymph Auto) 32.3 % 12.0-44.0 [place] Auto (test code = [place] Auto) 11.1 % 0.0-11.0 H Eos, Auto (test code = Eos, Auto) 1.3 % 0.0-7.0 Basophil Auto (test code = Basophil 0.7 % 0.0-2.0 Auto) Neutro Absolute (test code = Neutro 6.2 x10 1.6-7.4 Absolute) Lymph Absolute (test code = Lymph 3.71 x10 .50-4.60 Absolute) [place] Absolute (test code = [place] 1.28 x10 .00-1.20 H Absolute) Eos Absolute (test code = Eos 0.15 x10 0.00-0.74 Absolute) Baso Absolute (test code = Baso 0.08 x10 0.00-0.21 Absolute) IG Fgdyz4038-57-15 21:15:24 Test Item Value Reference Range Interpretation Comments IG (test code = IG) 0.3 % 0.0-5.0 IG Abs (test code = IG Abs) 0 x10 N HCG Qualitative Nmvbx4354-04-10 20:45:17 Test Item Value Reference Range Interpretation [...] 72 hours. Lot # (test code = [id number] N Lot #) Expiration Dt (test 2020-12-12 N code = Expiration Dt) Neg Control (test Negative code = Neg Control) Pos Control (test Positive code = Pos Control) Internal QC (test Acceptable code = Internal QC) RPR Jzltjrszhsn9351-43-29 12:07:58 Test Item Value Reference Range Interpretation [...] = 04-14-2020 N Expiration Dt) Thyroid Stimulating Hqxjfxf0243-76-96 07:59:52 Test Item Value Reference Range Interpretation Comments TSH (test code = TSH) 0.717 mIU/mL 0.270-4.200 Lipid Nciqp7303-72-56 07:52:46 Test Item Value Reference Range Interpretation Comments Cholesterol Total 141 mg/dL 0-200 RISK OF HE ART (test code = DISEASEPublishe d by Cholesterol Total) [place] [employer] Marcelino lyte Optimal Borderl ine [...] LDL/HDL Ratio=L DL Calc/HDL Chol Urine Drug Adaxwy4085-44-48 15:27:40 Test Item Value Reference Range Interpretation [...] matory test if desired . Comprehensive Metabolic Ptgcb8572-96-43 15:15:20 Test Item Value Reference Range Interpretation [...] A/G 1.9 ratio N Ratio) Comprehensive Metabolic Lmtnl2398-33-99 15:15:20 Test Item Value Reference Range Interpretation [...] the National Kidney Foundation, http://nkdep.ni h.gov Alcohol Oaovo1986-86-86 15:15:20 Test Item Value Reference Range Interpretation Comments Ethanol Level (test <0.00 g/dL 0.00-0.01 Intoxica vandana 0.080 g/dL code = Ethanol or more Level) Ethanol Inst (test <0 N code = Ethanol Inst) Comprehensive Metabolic Grgya8886-78-97 15:15:20 Test Item Value Reference Range Interpretation [...] the National Kidney Foundation, http://nkdep.ni h.gov Urinalysis Wpkyktamivx2493-77-10 15:11:20 Test Item Value Reference Range Interpretation Comments UA WBC (test code = UA WBC) 6-10 0-5 A UA RBC (test code = UA RBC) 0-5 0-5 UA Bacteria (test code = UA Moderate A Bacteria) UA Squam Epithelial (test code = UA TNTC A Squam Epithelial) UA Mucous (test code = UA Mucous) Few A Urinalysis with Microscopic if fkmxixwbd4018-64-48 14:42:58 Test Item Value Reference Range Interpretation [...] GL_SJM_UA_MICRO _IN D Complete Blood Count with Mooemxjwdilb3499-97-64 14:37:26 Test Item Value Reference Range Interpretation [...] code = IPF) 0 % N Automated Hopwxupiaxwk7589-95-03 14:37:26 Test Item Value Reference Range Interpretation Comments Neutro Auto (test code = Neutro 65.8 % 36.0-70.0 Auto) Lymph Auto (test code = Lymph Auto) 25.5 % 12.0-44.0 [place] Auto (test code = [place] Auto) 7.3 % 0.0-11.0 Eos, Auto (test code = Eos, Auto) 0.7 % 0.0-7.0 Basophil Auto (test code = Basophil 0.5 % 0.0-2.0 Auto) Neutro Absolute (test code = Neutro 6.0 x10 1.6-7.4 Absolute) Lymph Absolute (test code = Lymph 2.34 x10 .50-4.60 Absolute) [place] Absolute (test code = [place] .67 x10 .00-1.20 Absolute) Eos Absolute (test code = Eos 0.06 x10 0.00-0.74 Absolute) Baso Absolute (test code = Baso 0.05 x10 0.00-0.21 Absolute) IG Zrkao2175-73-17 14:37:26 Test Item Value Reference Range Interpretation Comments IG (test code = IG) 0.2 % 0.0-5.0 IG Abs (test code = IG Abs) 0 x10 N HCG Qualitative Sfwfv4470-95-26 14:34:08 Test Item Value Reference Range Interpretation [...] 72 hours. Lot # (test code = [id number] N Lot #) Expiration Dt (test 2020-03-14 N code = Expiration Dt) Neg Control (test Negative code = Neg Control) Pos Control (test Positive code = Pos Control) Internal QC (test Acceptable code = Internal QC) DRUGS OF ABUSE SCREEN [id number] 17:11:00 Test Item Value Reference Range Interpretation [...] = [place]) concentrati on: 300 ng/mL URINALYSIS [id number] 17:08:00 Test Item Value Reference Range Interpretation [...] (test code = MOD NONE BACU) URINALYSIS [id number] 17:00:00 Test Item Value Reference Range Interpretation [...] (test code = NONE BACU) HCG SERUM [id number] 16:52:00 Test Item Value Reference Range Interpretation Comments HCG SERUM QUAL (test code = HCGQL) NEGATIVE NEGATIVE - CT HEAD/BRAIN W/O [id number] 16:51:00 FAX: Theresa Fields MD [place]: St: REG Name: HEATHER HOPE [facility] : 1990 Age/S: 28/F [address] [facility] Unit: [id number] Loc: [place], [place]: [place] [address] Acct: [id number] Dis Date: Status: REG ER PHONE #: [phone] Exam Date: 02/23/2019 1642 FAX #: [phone] Reason: SEIZURE EXAMS: CPT CODE: [id number] CT HEAD/BRAIN W/O CONT 44666 Dictation location: U19. CT HEAD WITHOUT CONTRAST. [...] MD Technologist: HEATHER DICKSON Trnscrd Dt/Tm: 02/23/2019 (1601) t.GAVIOTAR.SP17 Orig Print D/T: S: 02/23/2019 (5544 PAGE 1 Signed ReportBASIC METABOLIC [id number] 16:31:00 Test Item Value Reference Range Interpretation [...] CA) 8.8 mg/dl 8.0-10.5 N BASIC METABOLIC [id number] 16:26:00 Test Item Value Reference Range Interpretation [...] code = CA) mg/dl 8.0-10.5 CBC W/AUTO [id number] 16:15:00 Test Item Value Reference Range Interpretation [...] 3-60 N code = VLDL) RAPID PLASMA [id number] 10:31:00 Test Item Value Reference Range Interpretation Comments RAPID PLASMA REAGIN (test code = Nonreactive Nonreactive RPR) GLYCOSYLATED HEMOGLOBIN (HA1C)2018-12-07 10:05:00 Test Item Value Reference Range Interpretation Comments GLYCOSYLATED HEMOGLOBIN (HA1C) 5.8 % TOT HB 4.5-6.2 N (test code = GLYHGB) [id number] 15:31:00 Test Item Value Reference Range Interpretation Comments ACETAMINOPHEN (test < 1 MCG/ML 10-30 L Acetamin ophen is code = ACET) possibly toxic at levels of: 1. m ore than 150 MCG/ML 4 hours post kaylin stion. 2. more than 5 0 MCG/ML 12 hours post ingestion. [id number] 15:31:00 Test Item Value Reference Range Interpretation Comments SALICYLATE (test code = < 3 MG/DL 0-20 N Refe rence Range: BOSSMAN) Analgesic...... ...... ...... < 10 mg /dl Therapeutic.... ...... ...... 15-20 mg /dl Mild Toxicity....... ...... . > 30 mg/dl Severe Toxicity....... ..... > 60 mg/dl UA RFLX [id number] 14:18:00 Test Item Value Reference Range Interpretation [...] Clean Catch (test code = UASPEC) UA [id number] 14:18:00 Test Item Value Reference Range Interpretation Comments UA WBC (test code = WBCU) < 10 #/hpf <10 UA RBC (test code = RBCU) 0-2 #/hpf NONE SEEN A UA BACTERIA (test code = BACU) RARE #/hpf NONE SEEN UA SQUAMOUS CELLS (test code = 0 - 20 #/lpf <100 SQU) UA MUCUS (test code = MUCU) 1+ #/lpf NONE SEEN BASIC METABOLIC [id number] 14:16:00 Test Item Value Reference Range Interpretation [...] 9.4 MG/DL 8.7-10.5 N CA) HEPATIC FUNCTION [id number] 14:16:00 Test Item Value Reference Range Interpretation [...] 50-136 N TOTAL (test code = ALKP) [id number] 14:16:00 Test Item Value Reference Range Interpretation Comments CK (test code = CKT) 87 Units/L 26-192 N [id number] 14:16:00 Test Item Value Reference Range Interpretation Comments ALCOHOL (test code = < 3 MG/DL 0-10 N 0 - 10: Should be ALC) interpreted as NEGATIVE. 11 - 50: None to mild euphoria. 51 - 100: Mild influence on vision and dark adapta tion. > 80: Legal intoxication; D epression of TRANSFORMER MOLDER; Increasing degr ee of poisoning. > 400: Fatalities repo rted. Results are for medical purposes only a nd not forlegal or emp loyment evaluative purp oses. BASIC METABOLIC [id number] 14:09:00 Test Item Value Reference Range Interpretation [...] 9.4 MG/DL 8.7-10.5 N CA) HEPATIC FUNCTION [id number] 14:09:00 Test Item Value Reference Range Interpretation [...] TOTAL (test Units/L 50-136 code = ALKP) [id number] 14:09:00 Test Item Value Reference Range Interpretation Comments CK (test code = CKT) Units/L 26-192 [id number] 14:09:00 Test Item Value Reference Range Interpretation Comments ALCOHOL (test code = ALC) MG/DL 0-10 LACTIC ACID [id number] 13:50:00 Test Item Value Reference Range Interpretation Comments LACTIC ACID POC 0.97 MMOL/L 0.90-1.70 N Performed by certified (test code = LACTP) stem processing machine operator at [facility] [id number] 13:48:00 Test Item Value Reference Range Interpretation Comments GLUBED (test code = 88 MG/DL 65-99 N Performe d by certified GLUBED) stem processing machine operator at [facility] DRUG OF ABUSE SCREEN [id number] 13:43:00 Test Item Value Reference Interpretation Comments [...] by layton rader methods (i.e., GC/MS) at [facility]. Results of scre en may not be usedin crimi nal justice, job performance or professionalcre dential review, or infa nt custody issues. Negativ e [place] Level ng/ml ------- ----- Cocaine 300 Methamp hetamine (Ecstacy) 500 Cannabinoids (THC) 50 Amphetamine 1000 Barbiturate s 200 Benzodia zepines 200 Opiat es 300 Ph encyclidine (PCP) 25 UR HCG [id number] 13:39:00 Test Item Value Reference Range Interpretation [...] using aquantitative h CG assay. UA RFLX [id number] 13:38:00 Test Item Value Reference Range Interpretation [...] Clean Catch (test code = UASPEC) UA [id number] 13:38:00 Test Item Value Reference Range Interpretation Comments UA WBC (test code = WBCU) #/hpf <10 UA RBC (test code = RBCU) #/hpf NONE SEEN UA SQUAMOUS CELLS (test code = SQU) #/lpf <100 UA RFLX [id number] 13:38:00 Test Item Value Reference Range Interpretation [...] Clean Catch (test code = UASPEC) UA [id number] 13:38:00 Test Item Value Reference Range Interpretation Comments UA WBC (test code = WBCU) #/hpf <10 UA RBC (test code = RBCU) #/hpf NONE SEEN UA SQUAMOUS CELLS (test code = SQU) #/lpf <100 CBC W/AUTO [id number] 13:26:00 Test Item Value Reference Range Interpretation [...] = BA#) 0.05 x10 3/uL 0.0-0.2 N [id number] 19:07:00 Test Item Value Reference Interpretation Comments Range LEVETIRACETAM 28.7 ug/mL 10.0-40.0 This test was developed and (test code = its performance LEVTAM) characteristics determined by [facility]. It has not been cleared orappro froylan by the Food and Drug Administration. Performed At: [facility] [id number] [place], [place] [id number] ra Larissa MENDOZA Ph:[phone] BASIC METABOLIC [id number] 04:58:00 Test Item Value Reference Range Interpretation [...] code = 8.9 MG/DL 8.7-10.5 N CA) [id number] 04:58:00 Test Item Value Reference Range Interpretation Comments MAGNESIUM (test code = MAG) 1.9 MG/DL 1.8-2.4 N CBC W/AUTO [id number] 04:08:00 Test Item Value Reference Range Interpretation [...] 0.0-0.2 N NRBC#) - MRI BRAIN W/O [id number] 13:51:00 Patient Name: HEATHER HOPE Unit No: [id number] EXAMS: CPT CODE: [id number] MRI BRAIN W/O CONTRAST 82099 Reason: sz INDICATION: Seizure COMPARISON: CT brain, [...] MD Technologist: Andre Self MRI Trscrpt Dt/ (1127)AngeliqueDW6 Orig Print D/T: S: 09/17/2018 (0033) [facility] CntNAME: HEATHER HOPE [address] PHYS: [place] [address] : 1990 AGE: 27 SEX: F LOC: D.D313 1 PHONE #: [phone] EXAM DATE: 09/17/2018 STATUS: ADM IN FAX #: RAD NO: DC Dt: PAGE 1 Signed [id number] 07:25:00 Test Item Value Reference Range Interpretation Comments PROLACTIN (test code = 24.6 ng/mL 4.8-23.3 H Perfo rmed At: HD PROLAC) [facility] [address] [id number] Sb Man MD Ph:[phone] UA RFLX MICROSCOPIC [id number] 19:02:00 Test Item Value Reference Range Interpretation [...] UACULT) URINE SOURCE: Clean CatchUA RFLX MICROSCOPIC [id number] 18:56:00 Test Item Value Reference Range Interpretation [...] (test code = UACULT) URINE SOURCE: Clean [id number] 15:56:00 Test Item Value Reference Range Interpretation Comments CK (test code = CKT) 34 Units/L 26-192 N BASIC METABOLIC [id number] 12:57:00 Test Item Value Reference Range Interpretation [...] code = 8.6 MG/DL 8.7-10.5 L CA) [id number] 12:57:00 Test Item Value Reference Range Interpretation Comments CK (test code = CKT) 32 Units/L 26-192 N CBC W/AUTO [id number] 12:33:00 Test Item Value Reference Range Interpretation [...] 3/uL 0.0-0.2 N NRBC#) TOTAL IRON BINDING [id number] 05:50:00 Test Item Value Reference Range Interpretation Comments SERUM IRON (test code = IRON) 17 MCG/DL 50-170 L TOTAL IRON BINDING CAPACITY (test 363 MCG/DL 280-400 N code = TIBC) IRON SATURATION (test code = 5 % 15-50 L FESAT) [id number] 05:50:00 Test Item Value Reference Range Interpretation Comments FERRITIN (test code = LULI) 11 NG/ML 3-105 N HEPATIC FUNCTION [id number] 05:32:00 Test Item Value Reference Range Interpretation [...] code = ALKP) - CT HEAD/BRAIN W/O [id number] 20:19:00 Patient Name: HEATHER HOPE Unit No: [id number] EXAMS: CPT CODE: [id number] CT HEAD/BRAIN W/O CONT [id number] Reason: seizure TECHNIQUE: Contiguous 5 mm images [...] D/T: S: 09/14/2018 (2021) CTDI: DLP: [facility] NAME: NADINE HOPEICA November [facility] PHYS: NGA. - Keanu Váz[place] [address] : 1990 AGE: 27 SEX: F LOC: MATT PHONE#: [phone] EXAM DATE: 09/14/2018 STATUS: REG ER FAX #: RAD NO: DC Dt: PAGE 1 Signed Report- XR CHEST 1 [id number] 20:18:00 Patient Name: HEATHER HOPE [facility] Unit No: [id number] EXAMS: CPT CODE: [id number] XR CHEST 1 V 00087 Reason: screen for pneumonia FINDINGS: Single view [...] (2017)Tristan Orig PrintD/T: S: 09/14/2018 (2020) [facility] NAME: HEATHER HOPE November [facility] PHYS: NGA. [place] [address] : 1990 AGE: 27 SEX: F LOC: MATT PHONE #: [phone] EXAM DATE: STATUS: REG ER FAX #: RAD NO: DC Dt: PAGE 1 Signed ReportHCG SERUM [id number] 20:04:00 Test Item Value Reference Range Interpretation [...] using aquantitative h CG assay. BASIC METABOLIC [id number] 19:51:00 Test Item Value Reference Range Interpretation [...] 9.3 MG/DL 8.7-10.5 N CA) CBC W/AUTO [id number] 19:46:00 Test Item Value Reference Range Interpretation [...] BA#) 0.05 x10 3/uL 0.0-0.2 N BLOOD [id number] 10:00:00 Test Item Value Reference Range Interpretation Comments CULTURE (IM-SenseAKER) (test No growth in 5 days code = 1095) HCG, QUANTITATIVE, [id number] 15:37:00 Test Item Value Reference Range Interpretation Comments GONADOTROPIN, CHORIONIC (HCG) 13366 mIU/mL 0-10 H QUANT (BEAKER) (test code = 649) Non- Females: <10 mIU/mL Females: Gestation Age Reference Range(mIU/mL) 0.2-1 Week 5-50 1-2 Weeks 50-500 2-3 Weeks 100-5,000 3-4Weeks 500-10,000 4-5 Weeks 1,000-50,000 5-6 Weeks 10,000-100,000 6-8 Weeks 15,000-200,000 2-3 Months 10,000-100,000COMPREHENSIVE METABOLIC [id number] 15:10:00 Test Item Value Reference Range Interpretation [...] PATIEN TS. CBC W/PLT COUNT & AUTO [id number] 14:53:00 Test Item Value Reference Range Interpretation [...] (test code = 2801) U/S, , FIRST [id number] 07:52:00Reason for exam:-> Reason for exam:->please include [...] 1 day. An embryonic pole is evident. [place]-rump length measures 0.63 cm, correlating with estimated [...] MDReport Verified Date/Time: 05/17/2017 07:52:37 Reading Location: [address] Consult Reading Room PREGNANCY SCREEN, [id number] 05:28:00 Test Item Value Reference Range Interpretation Comments TEST URINE (BEAKER) (test Positive code = 583) MR, BRAIN, WITHOUT [id number] 18:54:00Reason for exam:->Stroke evaluationFINAL REPORT MRI brain [...] Reading Location: [facility] Radiology Reading Room EEG AWAKE AND [id number] 12:08:00Reason for exam:->? nonconvulsive statusDATE OF TEST: 05/15/2017DATE OF REPORT 05/15/2017 ACC: [id number] EE Start time: 1034 Stop time: 1054 ICD-10: R56.9CPT Code: 36207HULDQHS: 26 y/o woman with epilepsy found down [...] recordings.Marika Smith M.D.Neurophysiology FellowSwathi Harper M.D.Neurophysiology Attending [id number] 04:27:00 Test Item Value Reference Range Interpretation Comments PROCALCITONIN (BEAKER) (test code 0.17 ng/mL <0.05 H = 3036) SEPSIS RISK (ng/mL)Low: 0.05-0.50Intermediate: 0.51-2.00High: >=[id number] 03:15:00 Test Item Value Reference Range Interpretation Comments PHOSPHORUS (BEAKER) (test code = 3.1 mg/dL 2.3-4.7 604) [id number] 03:15:00 Test Item Value Reference Range Interpretation Comments MAGNESIUM (BEAKER) (test code = 1.9 mg/dL 1.6-2.6 627) BASIC METABOLIC [id number] 03:15:00 Test Item Value Reference Range Interpretation [...] code = 380) LACTIC ACID, VENOUS, WHOLE [id number] 03:09:00 Test Item Value Reference Range Interpretation Comments LACTATE BLOOD VENOUS (2) (BEAKER) 0.6 mmol/L 0.5-2.2 (test code = 2872) Effective 10/17/2015: Units/Reference Range ChangeNew: 0.5-2.2 mmol/L Previous: 5-20 mg/dLPROTHROMBIN [id number] 03:07:00 Test Item Value Reference Range Interpretation [...] = 2801) RAD, CHEST, 1 VIEW, NON [id number] 01:06:00Reason for exam:->possible infectionShould this be performed at the bedside?->YesFINAL REPORT History: Infection. Comparison: None. Findings: A single view of the chest is submitted. The cardiomediastinal contours are unremarkable. There is no focal consolidation, pneumothorax, large pleural effusion or evidence of overt pulmonary edema. There is no acute bony abnormality. Impression: No acute abnormality. Signed: Shabnam Zhu MDReport Verified Date/Time: 05/15/2017 01:06:06 Reading Location: [address] Reading Room
[2020-04-02 12:05] LABS: Absolute Lymphocytes (CBC) 1.3 K/uL (0.7-4.9); Basophils % 0.6 % (0-1.3); Hematocrit 38.3 % (36.0-45.0); Lymphocytes % 16.2 % (15.3-44.8); RBC Red Blood Cell Count 4.47 M/uL (3.86-4.86)
[2020-04-02 12:21] LABS: Potassium 3.6 mmol/L (3.5-5.1)
--- NOTE | 2020-04-02 12:32 | RAD REPORT ---
EXAM DESCRIPTION: CT - Head Brain Wo Cont - 04/02/2020 12:22 pm CLINICAL HISTORY: Seizure COMPARISON: October 2019 TECHNIQUE: Computed axial tomography of the head was obtained. IV contrast was not requested. All CT scans are performed using dose optimization technique as appropriate and may include automated exposure control or mA/KV adjustment according to patient size. FINDINGS: An intracranial bleed is not seen . The ventricles are normal in caliber. No extra-axial fluid collection is noted. Fluid within the sinuses/ mastoids is not seen. IMPRESSION: No acute intracranial abnormality is seen. If patient's symptoms persist MRI of the bra in would be recommended.
[2020-04-02 12:37] LABS: Blood Morphology Comment NOT SEEN (NOT SEEN); Platelet Estimate ADEQ
[2020-04-02] MEDS ORDERED: levETIRAcetam 1,000 MG in NA CHLORIDE 0.9% 100 ML IV ONE (13:30)
--- NOTE | 2020-04-02 14:11 | ER ---
Nurse's Notes [facility] Name: Heather Hope Age: 29 yrs Sex: Female : 1990 Arrival Date: 04/02/2020 Time: 11:06 Bed 7 Private MD: Diagnosis: Epilepsy and recurrent seizures Presentation: 04/02 11:08 Chief complaint: EMS states: called out for possible seizure, witnessed by mother, was em seen here yesterday for the same thing, pt awake and alert x 3. Coronavirus screen: Client denies travel out of the [place] in the last 14 days. Ebola Screen: Patient negative for fever greater than or equal to 101.5 degrees Fahrenheit, and additional compatible Ebola Virus Disease symptoms Patient denies exposure to infectious person. Patient denies travel to an Ebola-affected area in the 21 days before illness onset. No symptoms or risks identified at this time. Initial Sepsis Screen: Does the patient meet any 2 criteria? No. Patient's initial sepsis screen is negative. Does the patient have a suspected source of infection? No. Patient's initial sepsis screen is negative. Risk Assessment: Do you want to hurt yourself or someone else? Patient reports no desire to harm self or others. Onset of symptoms was April 02, 2020. 11:08 Method Of Arrival: EMS: [facility] em 11:08 Acuity: DARLYN 3 em Historical: - Allergies: 11:14 No Known Allergies; em - Home Meds: 11:48 Keppra 750 mg Oral tab 3 tabs 2 times per day [Active]; em - PMHx: 11:14 Anemia; Seizures; em - PSHx: 11:14 None; em - Immunization history:: Adult Immunizations up to date. - Social history:: Smoking status: Patient denies any tobacco usage or history of. Screenin:13 Abuse screen: Denies threats or abuse. Nutritional screening: No deficits noted. em Tuberculosis screening: No symptoms or risk factors identified. Fall Risk Secondary diagnosis (15 points) seizures, Total Green Fall Scale indicates No Risk (0-24 pts). Assessment: 11:08 General: Appears in no apparent distress. comfortable, Behavior is calm, cooperative, em flat. Pain: Denies pain. Neuro: Level of Consciousness is awake, alert, obeys commands, Oriented to person, place, time, situation, Appropriate for age. Cardiovascular: Capillary refill < 3 seconds Patient's skin is warm and dry. Respiratory: Airway is patent Respiratory effort is even, unlabored, Respiratory pattern is regular, symmetrical. Derm: Skin is intact, is healthy with good turgor, Skin is pink, warm \T\ dry. Musculoskeletal: Capillary refill < 3 seconds, Range of motion: intact in all extremities. 12:30 Reassessment: Patient appears in no apparent distress at this time. Patient and/or em family updated on plan of care and expected duration. Pain level reassessed. Patient is alert, oriented x 3, equal unlabored respirations, skin warm/dry/pink. Patient states feeling better. 13:45 Reassessment: Patient appears in no apparent distress at this time. Patient and/or em family updated on plan of care and expected duration. Pain level reassessed. Patient is alert, oriented x 3, equal unlabored respirations, skin warm/dry/pink. 14:24 Reassessment: Patient appears in no apparent distress at this time. Patient and/or em family updated on plan of care and expected duration. Pain level reassessed. Patient is alert, oriented x 3, equal unlabored respirations, skin warm/dry/pink. 14:27 Reassessment: completion of IV Keppra, waiting for ride. em Vital Signs: 11:08 BP 121 / 79; Pulse 99; Resp 18; Temp 99.0; Pulse Ox 98% on R/A; Weight 58.97 kg; Height em 5 ft. 3 in. (160.02 cm); Pain 0/10; 12:00 BP 116 / 79; Pulse 101; Resp 16; Pulse Ox 97% on R/A; Pain 0/10; em 13:00 BP 121 / 79; Pulse 94; Resp 18; Pulse Ox 98% on R/A; em 14:00 BP 121 / 77; Pulse 102; Resp 18; Pulse Ox 99% on R/A; em 11:08 Body Mass Index 23.03 (58.97 kg, 160.02 cm) em Thomas Coma Score: 11:08 Eye Response: spontaneous(4). Verbal Response: oriented(5). Motor Response: obeys em commands(6). Total: 15. ED Course: 11:06 Patient arrived in ED. ph 11:08 Rayo Hernandez, RN is Primary Nurse. em 11:08 Arm band placed on. em 11:08 Seizure precautions initiated. em 11:12 Triage completed. em 11:13 Patient has correct armband on for positive identification. Placed in gown. Bed in low em position. Pulse ox on. NIBP on. 11:48 Jarvis Greer NP is PHCP. pm1 11:48 Johnathan Sanchez MD is Attending Physician. pm1 11:59 Initial lab(s) drawn, by tx, sent to lab. mt 11:59 Chem 7 Sent. mt 11:59 CBC with Manual Differential Sent. mt 13:53 Inserted saline lock: 22 gauge in right antecubital area, using aseptic technique. em 14:11 Srinivas German MD is Referral Physician. pm1 15:09 No provider procedures requiring assistance completed. IV discontinued, intact, em bleeding controlled, No redness/swelling at site. Pressure dressing applied. Administered Medications: 13:54 Drug: Keppra 1000 mg Route: IV; Rate: calculated rate; Site: right antecubital; em 14:26 Follow up: Response: No adverse reaction; IV Status: Completed infusion; IV Intake: em 100ml Intake: 14:26 IV: 100ml; Total: 100ml. em Outcome: 14:10 Discharge ordered by . pm1 15:09 Discharged to home via wheelchair. em 15:09 Condition: improved 15:09 Discharge instructions given to patient, Instructed on discharge instructions, follow up and referral plans. Demonstrated understanding of instructions, follow-up care. 15:23 Patient left the ED. em Signatures: Rayo Hernandez RN RN Ewa Garcia RN RN Jarvis Greer NP CAMP HOUSEKEEPER pm1 Rita Heath sc
--- NOTE | 2020-04-02 14:11 | EDPHYS ---
Physician Documentation [facility] Name: Heather Hope Age: 29 yrs Sex: Female : 1990 Arrival Date: 04/02/2020 Time: 11:06 Bed 7 Private MD: ED Physician Johnathan Sanchez HPI: 04/02 12:42 This 29 yrs old Female presents to ER via EMS with complaints of Probable pm1 Seizure. 12:42 The patient presents after having a single isolated seizure, the episode(s) was pm1 witnessed, by family, mother. Character of seizure(s): Patient does not know the character of her seizures. Seizure onset: just prior to arrival. Context: the seizure(s) was witnessed, by family, mother, occurred at home, occurred while the patient was Patient unable to recall. Contributing factors: unknown. Seizure Hx: Last seizure: The patient's last seizure 1 day ago and prior to that about 6 weeks ago, Seizure medications: Keppra, and another medication that the patient is unable to recall. Associated injury: Head/face: left side of the back of head, pain. Current symptoms: sleepiness and headache. The patient has experienced similar episodes in the past. Historical: - Allergies: 11:14 No Known Allergies; em - Home Meds: 11:48 Keppra 750 mg Oral tab 3 tabs 2 times per day [Active]; em - PMHx: 11:14 Anemia; Seizures; em - PSHx: 11:14 None; em - Immunization history:: Adult Immunizations up to date. - Social history:: Smoking status: Patient denies any tobacco usage or history of. ROS: 12:42 Constitutional: Negative for fever, chills, and weight loss, Eyes: Negative for injury, pm1 pain, redness, and discharge, ENT: Negative for injury, pain, and discharge, Neck: Negative for injury, pain, and swelling, Cardiovascular: Negative for chest pain, palpitations, and edema, Respiratory: Negative for shortness of breath, cough, wheezing, and pleuritic chest pain, Abdomen/GI: Negative for abdominal pain, nausea, vomiting, diarrhea, and constipation, Back: Negative for injury and pain, MS/Extremity: Negative for injury and deformity, Skin: Negative for injury, rash, and discoloration. 12:42 Neuro: Positive for headache, seizure activity, Negative for numbness, tingling, weakness. Exam: 12:42 Constitutional: This is a well developed, well nourished patient who is awake, alert, pm1 and in no acute distress. 12:42 Eyes: Pupils equal round and reactive to light, extra-ocular motions intact. Lids and lashes normal. Conjunctiva and sclera are non-icteric and not injected. Cornea within normal limits. Periorbital areas with no swelling, redness, or edema. ENT: Nares patent. No nasal discharge, no septal abnormalities noted. Tympanic membranes are normal and external auditory canals are clear. Oropharynx with no redness, swelling, or masses, exudates, or evidence of obstruction, uvula midline. Mucous membranes moist. Neck: Trachea midline, no thyromegaly or masses palpated, and no cervical lymphadenopathy. Supple, full range of motion without nuchal rigidity, or vertebral point tenderness. No Meningismus. 12:42 Back: No spinal tenderness. No costovertebral tenderness. Full range of motion. Skin: Warm, dry with normal turgor. Normal color with no rashes, no lesions, and no evidence of cellulitis. 12:42 MS/ Extremity: Pulses equal, no cyanosis. Neurovascular intact. Full, normal range of motion. 12:42 Head/face: Noted is no obvious of injury or deformity except tenderness, that is mild, of the left side of the back of head. 12:42 Cardiovascular: Exam negative for acute changes, Rate: normal, Rhythm: regular, Pulses: no pulse deficits are appreciated. 12:42 Respiratory: Exam negative for acute changes, respiratory distress, shortness of breath. 12:42 Abdomen/GI: Exam negative for acute changes, Inspection: abdomen appears normal, Palpation: abdomen is soft and non-tender, in all quadrants. 12:42 Neuro: Exam negative for acute changes, Orientation: is normal, Mentation: is normal, Motor: is normal, moves all fours, strength is normal, strength is 5/5 in all extremities, Sensation: is normal, no obvious gross deficits. Vital Signs: 11:08 BP 121 / 79; Pulse 99; Resp 18; Temp 99.0; Pulse Ox 98% on R/A; Weight 58.97 kg; Height em 5 ft. 3 in. (160.02 cm); Pain 0/10; 12:00 BP 116 / 79; Pulse 101; Resp 16; Pulse Ox 97% on R/A; Pain 0/10; em 13:00 BP 121 / 79; Pulse 94; Resp 18; Pulse Ox 98% on R/A; em 14:00 BP 121 / 77; Pulse 102; Resp 18; Pulse Ox 99% on R/A; em 11:08 Body Mass Index 23.03 (58.97 kg, 160.02 cm) em Thomas Coma Score: 11:08 Eye Response: spontaneous(4). Verbal Response: oriented(5). Motor Response: obeys em commands(6). Total: 15. MDM: 11:48 Patient medically screened. pm1 13:41 Data reviewed: vital signs. Data interpreted: Pulse oximetry: on room air is 98 %. pm1 Interpretation: normal. 14:07 Counseling: I had a detailed discussion with the patient and/or guardian regarding: the pm1 historical points, exam findings, and any diagnostic results supporting the discharge/admit diagnosis, lab results, radiology results, the need for outpatient follow up, for definitive care, a neurologist, to return to the emergency department if symptoms worsen or persist or if there are any questions or concerns that arise at home. 04/02 11:49 Order name: CBC with Manual Differential em 04/02 11:49 Order name: Chem 7 em 04/02 12:03 Order name: CT Head Brain wo Cont pm1 04/02 12:11 Order name: CBC with Manual Differential; Complete Time: 12:57 EDMS 04/02 12:21 Order name: Basic Metabolic Panel; Complete Time: 12:57 EDMS 04/02 12:33 Order name: CT; Complete Time: 12:57 EDMS 04/02 12:03 Order name: EKG; Complete Time: 12:04 pm1 04/02 12:03 Order name: EKG - Nurse/Tech; Complete Time: 12:42 pm1 Administered Medications: 13:54 Drug: Keppra 1000 mg Route: IV; Rate: calculated rate; Site: right antecubital; em 14:26 Follow up: Response: No adverse reaction; IV Status: Completed infusion; IV Intake: em 100ml Disposition: 04/03 07:42 Co-signature as Attending Physician, Johnathan Sanchez MD I agree with the assessment and kdr plan of care. Disposition: 04/02/20 14:10 Discharged to Home. Impression: Epilepsy and recurrent seizures. - Condition is Stable. - Discharge Instructions: Seizure, Adult, [id number]. - Medication Reconciliation Form, Thank You Letter, Antibiotic Education, Prescription Opioid Use form. - Follow up: Emergency Department; When: As needed; Reason: Worsening of condition. Follow up: Srinivas German MD; When: 2 - 3 days; Reason: Recheck today's complaints, Continuance of care, Re-evaluation by your physician. - Problem is new. - Symptoms have improved. Signatures: Dispatcher [employer] EDMS Johnathan Sanchez MD MD [facility] Rayo Hernandez RN RN em Jarvis Greer, RADHA VANSTONE MACHINE OPERATOR pm1 Corrections: (The following items were deleted from the chart) 04/02 14:11 14:10 04/02/2020 14:10 Discharged to Home. Impression: Epilepsy and recurrent seizures. pm1 Condition is Stable. Forms are Medication Reconciliation Form, Thank You Letter, Antibiotic Education, Prescription Opioid Use. Follow up: Emergency Department; When: As needed; Reason: Worsening of condition. Follow up: Private Physician; When: 2 - 3 days; Reason: Recheck today's complaints, Continuance of care, Re-evaluation by your physician. Problem is new. Symptoms have improved. pm1 15:23 14:11 04/02/2020 14:10 Discharged to Home. Impression: Epilepsy and recurrent seizures. em Condition is Stable. Discharge Instructions: Seizure, Adult, [id number]. Forms are Medication Reconciliation Form, Thank You Letter, Antibiotic Education, Prescription Opioid Use. Follow up: Emergency Department; When: As needed; Reason: Worsening of condition. Follow up: Srinivas German; When: 2 - 3 days; Reason: Recheck today's complaints, Continuance of care, Re-evaluation by your physician. Problem is new. Symptoms have improved. pm1
[2020-04-02 16:27] VITALS: TEMP 99
[2020-04-02 16:31] VITALS: BP 121/77; O2SAT 99
--- NOTE | 2020-04-03 16:11 | EKG ---
Test Date: 2020-04-02 Test Time: 12:40:23 Professor Of Violin: RENE MEASUREMENT RESULTS: Intervals: Rate: 81 AK: 150 QRSD: 88 QT: 366 QTc: 425 [place]: P: 8 AK: 150 QRS: 5 T: 4 INTERPRETIVE STATEMENTS: Normal sinus rhythm Anterior infarct, age undetermined Abnormal ECG Compared to ECG 02/14/2020 14:16:02 No significant changes Electronically Signed On 04-03-20 16:08:22 CDT by Merrill Guzman
== END 2020-04-02 15:23 | disposition home or self-care (01) ==
LOC: ER 11:05
DX: G40.909 Epilepsy, unspecified, not intractable, without status epilepticus (principal)
CPT/HCPCS: 96365; 93005; 85025; 80048; 36415; 70450; 99284; J1953

== ENCOUNTER 2020-05-01 14:01 | Emergency (ER) | payer OTHER ==
--- OUTSIDE RECORDS SUMMARY | 2020-05-01 14:18 | XMS REPORT | Clinical Summary ---
:1990 Author Organization [facility] Address [address] [place] [address] Care Team Providers Name Role Phone Asked, No Pcp Primary Care Provider Unavailable Allergies No Known Active Allergies Medications Medication Sig Dispensed Refills Start End Date Status Date levETIRAcetam Take 3 tablets 180 tablet 0 05/08/20 Active (KEPPRA) 750 MG (2,250 mg total) 0 20 tablet by mouth 2 (two) times a day for 30 days. ergocalciferol Take 1 capsule 4 capsule 0 05/14/20 Active (VITAMIN D2) (50,000 Units 0 20 50,000 unit total) by mouth capsule once a week for 30 days. cloBAZam (ONFI) 10 Take 3 tablets 270 tablet 1 10/23 Active mg tablet (30 mg total) by 0 21 mouth daily for 180 days. levETIRAcetam Take 750 mg [...] daily for 0 20 (FOLBEE PLUS 5 MG) 30 days. 5 mg tablet per tablet cloBAZam (ONFI) 10 Take 1 tablet 30 tablet 0 0 mg tablet (10 mg total) by 0 [...] days. levETIRAcetam Take 750 mg by 0 04/07/20 D iscontinued (KEPPRA) 750 MG mouth 2 (two) 0 20 (Stop Taking at tablet times a day. Ambrosio ge) divalproex Take 250 mg by 0 03/15/20 Disc ontinued (DEPAKOTE) 250 MG mouth 2 (two) 20 (Stop Taking at EC tablet times a day. Dischar ge) cloBAZam (ONFI) 10 Take 1 tablet 90 tablet 1 0 Discontinued mg tablet (10 mg total) by 0 20 (St op Taking at mouth nightly Discha rge) for 180 days. levETIRAcetam Take 5 tablets 300 tablet 0 04/07/20 Discontinued (KEPPRA) 250 MG (1,250 mg total) 0 20 (Stop Taking at tablet by mouth 2 (two) Dis charge) times a day for 30 days. cloBAZam (ONFI) 10 Take 1 tablet 60 tablet 0 0 Discontinued mg tablet (10 mg total) by 0 20 (Re order) mouth 2 (two) times a day for 30 days. 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 (HCC) (Primary Dx) 04/09/2020 Patient Outreach Quality Shyanne Banks MA 04/06/2020 Telephone Neurology Richard Henley MD 04/04/2020 - Hospital Encounter Neurology Max Ron Seizure ( HCC) (Primary Dx); 04/07/2020 MD Chandrika Partial symptomatic epilepsy with simple partial seizures, not intractable, without status epilepticus (HCC); Alissa UTI (urinary tr act infection), bacterial MD Ninfa Maynard Yahya, MD 03/30/2020 Hospital Encounter Radiology Richard Henley MD Seizur e (HCC) 03/30/2020 Telephone Neurology Richard Henley MD 03/30/2020 Travel 03/27/2020 Travel 03/15/2020 Travel 03/14/2020 Orders Only Neurology Maria E Prince Seizure (HCC ) CLAUDIA Dotson (Primary Dx) 03/12/2020 - Hospital Encounter Nephrology Richard Henley MD 03/15/2020 03/12/2020 Orders Only Neurology Richard Henley MD 03/08/2020 Telephone Neurology Richard Henley MD 02/17/2020 Telephone Neurology Richard Henley MD 02/16/2020 Telemedicine Neurology Richard Henley MD Seizure (HCC ) (Primary Dx) 02/14/2020 Telephone Neurology Richard Henley MD 01/18/2020 Travel 11/24/2019 Telephone Neurology Richard Henley MD 11/17/2019 Patient Outreach Quality Nola Sevilla RN 11/16/2019 Patient Outreach Quality Nola Sevilla RN 11/12/2019 - Hospital Encounter General Internal Shari Bailey Seiz ure (HCC) 11/15/2019 Medicine MD Adolfo (Primary Dx) Caesar Maxwell MD Adenwala, Yusuf Ebrahim, MD 10/31/2019 Travel 10/24/2019 Travel after 05/01/2019 Surgical History Surgery Date Site/Laterality Comments NO PAST SURGERIES Medical History Medical History Date Comments Seizures (HCC) Depression Social History Tobacco Use Types Packs/Day Years Used Date Never Smoker Smokeless Tobacco: Never Used Alcohol Use Drinks/Week oz/Week Comments Not Currently Sex Assigned at Date Recorded Not on file Job Start Date Occupation Industry Not on file Not on file Not on file COVID-19 Exposure Response Date Recorded In the last month, have you been in contact with No / Unsure 04/27/2020 10:24 AM [employer]IDEO [employer] DEVEL[employer] someone who was confirmed or suspected to have Coronavirus / COVID-19? 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 SS-B ANTIBODY Routine 04/06/2020 4:50 Results fo r this PM CDT procedure are i n the results section. SS-A ANTIBODY Routine 04/06/2020 4:50 Results fo r this PM CDT procedure are i n the results section. CENTROMERE ANTIBODY Routine 04/06/2020 4:50 Resu lts for this PM CDT procedure are i n the results section. SCL-70 ANTIBODY Routine 04/06/2020 4:50 Results for this PM CDT procedure are i n the results section. MATTHEW ANTIBODY Routine 04/06/2020 4:50 Results f or this PM CDT procedure are i n the results section. DOUBLE-STRANDED DNA Routine 04/06/2020 4:50 Resu lts for this (DSDNA) ANTIBODIES, PM CDT procedur e are in CRITHIDIA the results section. BERNARDA-1 ANTIBODY Routine 04/06/2020 4:50 Results fo r this PM CDT procedure are i n the results section. RIBONUCLEIC ANTIBODY Routine 04/06/2020 4:50 Res ults for this (ORE DIGGER) PM CDT procedure are i n the results section. HOMOCYSTINE, PLASMA Routine 04/05/2020 5:40 Resu lts for this PM CDT procedure are i n the results section. POTASSIUM LEVEL Routine 04/05/2020 5:40 Results for this PM CDT procedure are i n the results section. EEG AWAKE/DROWSY LESS Routine 04/05/2020 11:03 Re sults for this THAN 41 MIN AM CDT procedure are i n the results section. ESTIMATED GFR Routine 04/05/2020 4:00 Results fo r this AM CDT procedure are i n the results section. MAGNESIUM LEVEL Routine 04/05/2020 4:00 Results for this AM CDT procedure are i n the results section. FOLATE LEVEL Routine 04/05/2020 4:00 Results for this AM CDT procedure are i n the results section. BASIC METABOLIC PANEL Routine 04/05/2020 4:00 Re sults for this AM CDT procedure are i n the results section. VITAMIN D 25 HYDROXY Routine 04/05/2020 4:00 Res ults for this LEVEL AM CDT procedure are i n the results section. HIV AG/AB COMBINATION Routine 04/05/2020 4:00 Re sults for this AM CDT procedure are i n the results section. SYPHILIS TOTAL Routine 04/05/2020 4:00 Results f or this ANTIBODY AM CDT procedure are i n the results section. T3 Routine 04/05/2020 4:00 Results for this AM CDT procedure are i n the results section. T4, FREE Routine 04/05/2020 4:00 Results for this AM CDT procedure are i n the results section. THYROID STIMULATING Routine 04/05/2020 4:00 Resu lts for this HORMONE AM CDT procedure are i n the results section. RHEUMATOID FACTOR Routine 04/05/2020 4:00 Result s for this AM CDT procedure are i n the results section. HOMOCYSTINE, PLASMA Routine 04/05/2020 4:00 Resu lts for this AM CDT procedure are i n the results section. C-REACTIVE PROTEIN Routine 04/05/2020 4:00 Resul ts for this AM CDT procedure are i n the results section. VITAMIN B12 LEVEL Routine 04/05/2020 4:00 Result s for this AM CDT procedure are i n the results section. HC COMPLETE BLD COUNT Routine 04/05/2020 4:00 Re sults for this W/AUTO DIFF AM CDT procedure are i n the results section. COVID-19 QUALITATIVE Routine 04/04/2020 10:52 Res ults for this PCR PM CDT procedure are i n the results section. CT HEAD WO CONTRAST STAT 04/04/2020 9:17 Resu lts for this PM CDT procedure are i n the results section. SEDIMENTATION RATE STAT 04/04/2020 9:00 Resul ts for this PM CDT procedure are i n the results section. CBC HEMOGRAM STAT 04/04/2020 9:00 Results for this PM CDT procedure are i n the results section. URINE CULTURE STAT 04/04/2020 8:52 Results fo r this PM CDT procedure are i n the results section. KEPPRA (LEVETIRACETAM) Routine 04/04/2020 8:15 R esults for this LEVEL PM CDT procedure are i n the results section. URINE DRUGS OF ABUSE STAT 04/04/2020 7:19 Res ults for this SCREEN PM CDT procedure are i n the results section. URINALYSIS SCREEN AND STAT 04/04/2020 7:19 Re sults for this MICROSCOPY, WITH PM CDT procedure a re in REFLEX TO CULTURE the result s section. PROLACTIN LEVEL Routine 04/04/2020 7:07 Results for this PM CDT procedure are i n the results section. ECG 12-LEAD STAT 04/04/2020 7:02 Results for this PM CDT procedure are i n the results section. CRITICAL CARE Routine 04/04/2020 6:48 Results fo r this PM CDT procedure are i n the results section. ESTIMATED GFR STAT 04/04/2020 6:33 Results fo r this PM CDT procedure are i n the results section. PHOSPHORUS LEVEL STAT 04/04/2020 6:33 Results for this PM CDT procedure are i n the results section. MAGNESIUM LEVEL STAT 04/04/2020 6:33 Results for this PM CDT procedure are i n the results section. LACTIC ACID LEVEL, STAT 04/04/2020 6:33 Resul ts for this SEPSIS - NOW AND PM CDT procedure a re in REPEAT 2X EVERY 3 the result s HOURS section. COMPREHENSIVE STAT 04/04/2020 6:33 Results fo r this METABOLIC PANEL PM CDT procedure ar e in the results section. PET BRAIN METABOLIC Routine 03/30/2020 1:51 Seizure (HCC) Res ults for this EVAL PM CDT procedure are i n the results section. POC GLUCOSE Routine 03/30/2020 12:29 Results for this PM CDT procedure are i n the results section. MRI BRAIN W WO Routine 03/27/2020 1:50 Seizure (HCC) Results for this CONTRAST PM CDT procedure are i n the results section. MONITORED VIDEO-EEG 60 Routine 03/15/2020 12:14 R esults for this HRS 1 MIN-74 HRS PM CDT procedure a re in the results section. MONITORED W VIDEO Routine 03/15/2020 12:12 Result s for this DAILY AM CDT procedure are i n the results section. MONITORED W VIDEO Routine 03/14/2020 12:24 Result s for this DAILY AM CDT procedure are i n the results section. EEG SETUP Routine 03/13/2020 12:17 Results for this AM CDT procedure are [...] are i n the results section. after 05/01/2019 Results POC glucose (04/06/2020 5:27 PM CDT)Only the most recent of2 resultswithin the time period is included. Pathologist Sig nature POC glucose 102 (H) 65 - 99 mg/dL [facility] Comment: HOSPITAL Paste Mixer Liquid Name: Gerber Mcdonald Device ID: [id number] Specimen Blood Performing Organization Address [facility] Phon e Number [facility] DEPARTMENT OF PATHOLOGY AND [address] [place] [address] [address] SS-B antibody (04/06/2020 4:50 PM CDT) Pathologist [facility] Sjogren's SS-B 0.6 0.0 - 0.9 [facility] SS-B antibody Negative [facility] inter Comment: YARSANISM SS-B/La antibody is seen in patients with Sjogre n syndrome, but may also be HOSPITAL positive with systemic lupus erythematosus (SLE), and systemic sclerosis. Specimen Serum Performing Organization Address [facility] Phon e Number [facility] DEPARTMENT OF PATHOLOGY AND [address] [place] [address] [phone] [address] SS-A antibody (04/06/2020 4:50 PM CDT) Pathologist [facility] Sjogren's SS-A <0.2 0.0 - 0.9 [facility] SS-A antibody Negative [facility] inter Comment: YARSANISM SS-A antibody is sensitive for Sjogren's syndrom e, but may also be positive HOSPITAL with systemic lupus erythematosus (SLE), and systemic sclerosis. Specimen Serum Performing Organization Address City/State/ZIP Code Phon e Number [facility] DEPARTMENT OF PATHOLOGY AND [address] [place] [address] [phone] [address] Matthew antibody (04/06/2020 4:50 PM CDT) Matthew antibody <0.2 0.0 - 0.9 [facility] Matthew antibody Negative [facility] interp Comment: YARSANISM Anti-Matthew antibodies occurs in 30-35% of system lupus erythematosus HOSPITAL (SLE) cases, but is very specific for SLE. It may also present in mixed connective-tissue disease (MCTD). Specimen Serum Performing Organization Address City/[facility]/ZIP Code Phon e Number [facility] DEPARTMENT OF PATHOLOGY AND [address] [place] [address] [address] Scl-70 antibody (04/06/2020 4:50 PM CDT) Scleroderma SCL-70 <0.2 0.0 - 0.9 [facility] Scl-70 antibody Negative [facility] interp Comment: YARSANISM Anti-Scl-70 (topoisomerase I) antibodies are found in patients with HOSPITAL systemic sclerosis (SSc or scleroderma), and have been reported to be predictive of diffuse cutaneous involvement. Anti-Scl- 70 antibodies may also be present in patients with systemic lupus erythe matosus (SLE). Specimen Serum Performing Organization Address City/[facility]/ZIP Code Phon e Number [facility] DEPARTMENT OF PATHOLOGY AND [address] [place] [address] [phone] [address] Ribonucleic antibody (ORE DIGGER) (04/06/2020 4:50 PM CDT) Ribonucleic <0.2 0.0 - 0.9 [facility] antibody (ORE DIGGER) [facility] Ribonucleic Negative [facility] antibody (ORE DIGGER) Comment: YARSANISM interp Anti-ribonucleic protein (anti-ORE DIGGER) antibodies a re typically found in HOSPITAL patients with mixed connective tissue disease, but can also be seen in patients with systemic lupus erythematosus (SLE) or sy stematic sclerosis. Specimen Serum Performing Organization Address City/State/ZIP Code Phon e Number [facility] DEPARTMENT OF PATHOLOGY AND [address] [place] [phone] Bernarda-1 antibody (04/06/2020 4:50 PM CDT) Pathologist [facility] Bernarda-1 antibody <0.2 0.0 - 0.9 [facility] Bernarda-1 antibody Negative [facility] Comment: YARSANISM Anti-Bernarda-1 antibody is predominantly found in pat ients with polymyositis, HOSPITAL especially for those with interstitial pulmonary fibro sis. It can also be found in patients with dermatomyositis. Specimen Serum Performing Organization Address City/[facility] Phon e Number [facility] DEPARTMENT OF PATHOLOGY AND [address] [place] [phone] Centromere antibody (04/06/2020 4:50 PM CDT) Pathologist [facility] Centromere <0.2 0.0 - 0.9 [facility] Centromere Negative [facility] antibody interp Comment: [facility] Anti-centromere antibodies are found in patients with systemic sclerosis (SSc or scleroderma), especially for those with limite d cutaneous or CREST syndrome. Anti-centromere antibodies may also be found in patients with other rheumatic or connective tissue diseases. Specimen Serum Performing Organization Address City/[facility] Phon e Number [facility] DEPARTMENT OF PATHOLOGY AND [address] [place], [place] [address] [address] [address] Double-stranded DNA (dsDNA) antibodies, Crithidia (04/06/2020 4:50 PM CDT) Pathologist Sig nature DNA Ab screen Not Detected Not-Detected [facility] Specimen Blood Performing Organization Address City/[facility] Phon e Number [facility] DEPARTMENT OF PATHOLOGY AND [address] [place] [phone] Homocystine, plasma (04/05/2020 5:40 PM CDT)Only the most recent of3 results within the time period is included. Pathologist [facility] Homocysteine 6.7 0.0 - 15.0 [facility] Comment: umol/L HOSPITAL The risk for coronary vascular disease increases progr essively with homocysteine concentration. A 3.4 times greater risk is associated with a homocysteine concentration of greate r than 15.8 umol/L as compared to a concentration below 14.1 umol/L. Specimen is slightly hemolyzed. Interpret results ac cordingly. Specimen Plasma Performing Organization Address City/[facility] Phon e Number [facility] DEPARTMENT OF PATHOLOGY AND [address], [place] [address] [address] Potassium level (04/05/2020 5:40 PM CDT) Pathologist [facility] christopher Potassium 3.7 3.5 - 5.0 mEq/L [facility] L Specimen Plasma Performing Organization Address City/[facility] Code Phon e Number [facility] DEPARTMENT OF PATHOLOGY AND [address] [place] [address] [phone] [address] EEG (routine) (04/05/2020 11:03 AM CDT) Narrative Performed At This result has an attachment that is no t available. VIDEO-EEG RECORDING AWAKE & ASLEEP. Date of Service:04/05/20 Patient Name: Heather Hope Date of : 1990 Attending MD: Jojo Pink MD Technique: Recordings were obtained using a standard i nternational 10-20 electrode placement supplemented with a single electro cardiogram chest electrode. The recordings were obtained using a refere nce electrode and reformatted digitally into sequential bipolar and refe rential montages for review. Indication: 29 y.o.right-handedwomanwith a H s ignificant for epilepsy and depression presented to ED with complains of incre ased seizure frequency referred for video-EEG to evaluate for seizu res. Findings: Background: The background is continuous, composed of predominantly alpha and theta frequencies, with normal voltages and fair a nterior to posterior organization. There is a reactive posterior dominant r hythm of 7-8 Hz. With drowsiness, there is the expected attenuation of the posterior dominant rhythm. During sleep, there is the emergence of normal sleep architecture including symmetric and well-defined slee p spindles and K complexes noted. Hyperventilation: was performed showing intermittent d iffuse theta slowing Photic stimulation: was performed with no evidence of photic driving Interictal: frequent bursts of sharpened delta with em bedded sharp wave discharges maximal over the right frontotemporal regio n Impression: This is an abnormal Video-EEG study characterized by 1. Mild diffuse slowing of the background, a non-speci fic indicator of global cerebral dysfunction. 2. Frequent epileptiform discharges over the right fro ntotemporal region. No seizures are captured. Jojo Pink MD ICD-10 Code: R569 Estimated GFR (04/05/2020 4:00 AM CDT)Only the most recent of6 resultswithin the time period is included. Estimated GFR >=90 mL/min/1.73 [facility] Comment: HOSPITAL Catergory Units Interpretation G1 >=90 Normal [...] lity Initiative (NKF-KDOQI) published in 2014. Specimen Plasma Performing Organization Address City/State/ZIP Code Phon e Number [facility] DEPARTMENT OF PATHOLOGY AND [address], [place] [address] [facility] [address] Syphilis total antibody (04/05/2020 4:00 AM CDT)Only the most recent of2 resultswithin the time period is included. Syphilis total Non-reactiveComment Non-reactive [facility] antibody : No serological HOSPITAL evidence of syphilis infection. Specimen Serum Narrative Performed At Unable to perform testing, specimen is [facility] DEPARTMENT OF PATHOLOGY AND GENOMIC _HEMOLYZED___. Recollect MEDICINE requested for __K__ (tests). __ENOC [id number] (name/location) notified by ___JT_ (tech ID) at __ 04/05/2020 07:01 __ (date/time). Credit issued. Unable to perform testing, specimen is _HEMOLYZED___. Recollect requested for _HCYT (tests). __ENOC JOHN (name/location) notified by ___JT_ (tech ID) at __ 04/05/2020 09:26 __ (date/time). Credit issued. Performing Organization Address City/[facility] Phon e Number [facility] DEPARTMENT OF PATHOLOGY AND [address] [place] [address] [phone] [address] HIV Ag/Ab combination (04/05/2020 4:00 AM CDT)Only the most recent of2 results within the time period is included. [facility] HIV Ag/Ab combination Non-reactive Non-reactive [facility] Specimen Blood Performing Organization Address [facility] Phon e Number [facility] DEPARTMENT OF PATHOLOGY AND [address] [place] [address] [address] Vitamin D 25 hydroxy level (04/05/2020 4:00 AM CDT)Only the most recent of2 resultswithin the time period is included. [facility] Vitamin D, 12.1 (L) 30.0 - 150.0 [facility] 25-hydroxy Comment: ng/mL HOSPITAL This assay reports [...] alternative methods. Specimen Blood Performing Organization Address [facility] Phon e Number [facility] DEPARTMENT OF PATHOLOGY AND [address] [place], [place] [address] [address] [address] CBC with platelet and differential (04/05/2020 4:00 AM CDT)Only the most recent of5 resultswithin the time period is included. [facility] WBC 6.97 4.50 - 11.00 [facility] k/uL HOSPITAL RBC 4.12 (L) 4.20 - 5.50 [facility] m/uL HOSPITAL HGB 12.1 12.0 - 16.0 [facility] g/dL [facility] HCT 35.6 (L) 37.0 - 47.0 % [facility] MCV 86.4 82.0 - 100.0 [facility] MCH 29.4 27.0 - 34.0 pg [facility] MCHC 34.0 31.0 - 37.0 [facility] g/dL [facility] RDW - SD 39.6 37.0 - 55.0 fL [facility] MPV 10.4 8.8 - 13.2 fL [facility] Platelet count 267 150 - 400 k/uL [facility] Nucleated RBC 0.00 /100 WBC [facility] Neutrophils 49.6 39.0 - 69.0 % [facility] Lymphocytes 39.5 25.0 - 45.0 % [facility] Monocytes 7.2 0.0 - 10.0 % [facility] Eosinophils 2.7 0.0 - 5.0 % [facility] Basophils 0.9 0.0 - 1.0 % [facility] Immature granulocytes 0.1Comment: 0.0 - 1.0 % [facility] "Immature [facility] granulocytes" (promyelocytes , myelocytes, metamyelocytes ) Specimen Plasma Performing Organization Address City/State/ZIP Code Phon e Number [facility] DEPARTMENT OF PATHOLOGY AND [address], [place] [address] GENOM[facility] MEDICINE [address] [address] Rheumatoid factor (04/05/2020 4:00 AM CDT)Only the most recent of2 results within the time period is included. Pathologist Sig nature Rheumatoid factor <10 0 - 13 IU/mL [facility] [place] Specimen Plasma Narrative Performed At Unable to perform testing, specimen is [facility] DEPARTMENT OF PATHOLOGY AND GENOMIC _HEMOLYZED___. Recollect MEDICINE requested for __K__ (tests). __ENOC [id number] (name/location) notified by ___JT_ (tech ID) at __ 04/05/2020 07:01 __ (date/time). Credit issued. Performing Organization Address City/[facility] Phon e Number [facility] DEPARTMENT OF PATHOLOGY AND [address] [place] [phone] [place], [id number] C-reactive protein (04/05/2020 4:00 AM CDT)Only the most recent of2 results within the time period is included. Pathologist Sig nature CRP <0.30 0.00 - 0.50 mg/dL [facility] [place] Specimen Plasma Performing Organization Address [facility] Phon e Number [facility] DEPARTMENT OF PATHOLOGY AND [address] [place] [address] [address] T3 (04/05/2020 4:00 AM CDT) Pathologist Sig nature T3 89 80 - 200 ng/dL [facility] Specimen Plasma Performing Organization Address [facility] Phon e Number [facility] DEPARTMENT OF PATHOLOGY AND [address] [place] [address] Thyroid stimulating hormone (04/05/2020 4:00 AM CDT)Only the most recent of2 resultswithin the time period is included. Pathologist Sig nature TSH 1.26 0.27 - 4.20 uIU/mL [facility] Specimen Plasma Performing Organization Address [facility] Phon e Number [facility] DEPARTMENT OF PATHOLOGY AND [address] [place] [address] [address] T4, free (04/05/2020 4:00 AM CDT)Only the most recent of2 resultswithin the time period is included. Pathologist Sig nature T4, free 1.1 0.9 - 1.7 ng/dL [facility] L Specimen Plasma Performing Organization Address [facility] Phon e Number [facility] DEPARTMENT OF PATHOLOGY AND [address] [place] [address] Magnesium level (04/05/2020 4:00 AM CDT)Only the most recent of3 resultswithin the time period is included. Pathologist Sig nature Magnesium 1.8 1.6 - 2.6 mg/dL [facility] L Specimen Plasma Performing Organization Address [facility] Phon e Number [facility] DEPARTMENT OF PATHOLOGY AND [address] [place] [address] [address] [address] Folate level (04/05/2020 4:00 AM CDT)Only the most recent of2 resultswithin the time period is included. Pathologist Sig nature Folate 14.0 4.8 - 24.2 ng/mL [facility] Specimen Serum Performing Organization Address [facility] Phon e Number [facility] DEPARTMENT OF PATHOLOGY AND [address] [place] [address] [address] Vitamin B12 level (04/05/2020 4:00 AM CDT)Only the most recent of2 results within the time period is included. Vitamin B12 [phone] [facility] Comment: pg/mL HOSPITAL Significant overlap exists between normal and deficien cy states. However, most patients with deficiencies will have Ser um B12 <200 pg/mL. Specimen Serum Performing Organization Address [facility] Phon e Number [facility] DEPARTMENT OF PATHOLOGY AND [address] [place] [address] [address] Basic metabolic panel (04/05/2020 4:00 AM CDT)Only the most recent of3 results within the time period is included. Pathologist Sig nature Sodium 138 135 - 148 mEq/L [facility] Potassium Footnote 3.5 - 5.0 mEq/L [facility] Comment: HOSPITAL Unable to perform testing, specimen is _HEMOLYZED. R ecollect requested for __K_ (tests). Chloride 105 98 - 112 mEq/L [facility] CO2 21 (L) 24 - 31 mEq/L [facility] Anion gap 12@ANIO 7 - 15 mEq/L [facility] BUN 6 6 - 20 mg/dL [facility] Creatinine 0.42 (L) 0.50 - 0.90 [facility] mg/dL [facility] Glucose 89 65 - 99 mg/dL [facility] Calcium 9.0 8.3 - 10.2 [facility] mg/dL HOSPITAL Specimen Plasma Performing Organization Address City/[facility] Code Phon e Number [facility] DEPARTMENT OF PATHOLOGY AND [address] [place] [address] 0 [place] [address] COVID-19 qualitative PCR (04/04/2020 10:52 PM CDT)Only the most recent of2 resultswithin the time period is included. Interpretation Negative results do not prec lude 2019-nCoV infection and should not be used as the sole basis for treatment or other patient management decisions. Negative results must be combined with clinical observations, patient history, and epidemiological [facility] information. [facility] COVID-19 qualitative Not-Detected Not-Detecte [facility] PCR result d [facility] COVID-19 qualitative See link below for [facility] PCR PDF Lab YARSANISM ReportComment: Case HOSPITAL Number: [id number] Specimen Nasal swab Performing Organization Address [facility] Phon e Number [facility] DEPARTMENT OF PATHOLOGY AND [address] [place] [address] Head Wo Contrast (04/04/2020 9:17 PM CDT)Only the most recent of3 results within the time period is included. Specimen Narrative Performed At EXAMINATION: CT HEAD WO CONTRAST RADIANT CLINICAL HISTORY: fall trauma COMPARISON: MRI of the brain dated Mar FINDINGS: There is no evidence of acute hemorrhage, mass lesion, or midline shift. The edmondson-white matter differentiation is preserved wit h no evidence of acute territorial infarction. Ventricles, sulci, and c isterns are age-appropriate in size and configuratio n. There is no extra-axial fluid collection . Visualized paranasal sinuses and mastoid air cells are clear. Bones, orbits, and soft tissues are unremarkabl e. All CT images were acquired using low-dose technique w ith automated exposure control. IMPRESSION: Unremarkable CT of the head with no evidence of acute intracranial hemorrhage or mass effect. [id number] Procedure Note Hm Interface, Radiology Results Incoming - 04/04/2020 9:25 PM CDT EXAMINATION: CT HEAD WO CONTRAST CLINICAL HISTORY: fall trauma COMPARISON: MRI of the brain dated 2019 FINDINGS: There is no evidence of acute hemorrhage , mass lesion, or midline shift. The edmondson-white matter differentiation is preserved with no evidence of acute territorial infarction. Ventricles, sulci, and cisterns are age-appropriate in size and configuratio n. There is no extra-axial fluid collection . Visualized paranasal sinuses and mastoid air cells are clear. Bones, orbits, and soft tissues are unremarkable. All CT images were acquired using low-do se technique with automated exposure control. IMPRESSION: Unremarkable CT of the head with no evid ence of acute intracranial hemorrhage or mass effect. [id number] Performing Organization Address [facility] Phon [facility] Number [facility] [address] [place] [address] Sedimentation rate (04/04/2020 9:00 PM CDT)Only the most recent of2 results within the time period is included. Pathologist Sig [facility] Sedimentation rate 6 0 - 20 mm/hr [facility] Specimen Plasma Performing Organization Address [facility] Phon e Number [facility] DEPARTMENT OF PATHOLOGY AND [address] [place] [address] 0 [facility] MEDICINE [address] [address] CBC hemogram (04/04/2020 9:00 PM CDT) Pathologist Sig nature WBC 7.66 4.50 - 11.00 k/uL [facility] RBC 4.23 4.20 - 5.50 m/uL [facility] HGB 12.2 12.0 - 16.0 g/dL [facility] HCT 36.8 (L) 37.0 - 47.0 % [facility] MCV 87.0 82.0 - 100.0 fL [facility] MCH 28.8 27.0 - 34.0 pg [facility] MCHC 33.2 31.0 - 37.0 g/dL [facility] RDW - SD 40.3 37.0 - 55.0 fL [facility] MPV 10.1 8.8 - 13.2 fL [facility] Platelet count 247 150 - 400 k/uL [facility] Nucleated RBC 0.00 /100 WBC [facility] Specimen Plasma Performing Organization Address [facility] Phon e Number [facility] DEPARTMENT OF PATHOLOGY AND [address] [place], [place] [address] [facility] [address] [place] [address] Urine culture (04/04/2020 8:52 PM CDT)Only the most recent of2 resultswithin the time period is included. Urine culture Mixed prem 10-5 col/cc [facility] isolate Comment: HOSPITAL Specimen Information Specimen Source: Urine Specimen Site: Clean catch Specimen Urine Performing Organization Address City/[facility] Phon e Number [facility] DEPARTMENT OF PATHOLOGY AND [address] [place], [place] [address] [facility] [address] [place] [address] Keppra (Levetiracetam) level (04/04/2020 8:15 PM CDT)Only the most recent of2 resultswithin the time period is included. Levetiracetam 23 12 - 46 ug/mL [facility] Comment: INTERPRETIVE INFORMATION: Keppra (Levetiracetam) Therapeutic Range: 12-46 ug/mL Toxic: Not well Established Pharmacokinetics of levetiracetam are affected by lamberto l function. Adverse effects may include somnolence, weakness, head ache and vomiting. This levetiracetam (Keppra) immunoassay uses the EnGene[employer] D navabis reagents, which has known cross-reactivity with the dr norma brownivaracetam (Briviact) and may report inaccurate resu lts. Patients transitioning from levetiracetam to brivarace goldstein or those who are using both medications should not monitor drug concentrations with the [employer] Diagnostics assay. These p atients should be monitored using a validated chromatographic methodology that distinguishes between drugs to determine drug con centrations. Performed By: [facility] [address] [place] [address] [employer] Plant Consultant: Gege Pierson MD Specimen Serum Performing Organization Address City/[facility] Phon e Number [facility] [address] [place] [address] [facility] [address] [place] [address] Urinalysis screen and microscopy, with reflex to culture (04/04/2020 7:19 PM CDT)Only the most recent of2 resultswithin the time period is included. Specimen site Clean catch [facility] Color, UA Dark Yellow [facility] Appearance, UA Cloudy [facility] Specific gravity, UA 1.028 1.001 - 1.035 [facility] pH, UA 6.0 5.0 - 8.5 [facility] Protein, UA 1+ (A) Negative [facility] Glucose, UA Negative Negative [facility] Ketones, UA Negative Negative [facility] Bilirubin, UA Negative Negative [facility] Blood, UA Negative Negative [facility] Nitrite, UA Negative Negative [facility] Urobilinogen, UA 4.0 (A) <2.0 [facility] Leukocyte esterase, Moderate (A) Negative [facility] Epithelial cells, UA >20 /HPF [facility] WBC, UA 22 (H) 0 - 4 /HPF [facility] RBC, UA <1 0 - 5 /HPF [facility] Bacteria, UA Few None seen [facility] Yeast, UA None seen [facility] Yeast with None seen [facility] pseudohyphae, [facility] Specimen Urine Performing Organization Address City/State/[facility] Code Phon e Number [facility] DEPARTMENT OF PATHOLOGY AND [address] [place] [phone] [facility] [address] [address] Urine drugs of abuse screen (04/04/2020 7:19 PM CDT)Only the most recent of2 resultswithin the time period is included. Amphetamine screen, Negative [facility] urine [facility] Barbiturate screen, Negative [facility] urine [facility] Benzodiazepine Positive (A) [facility] screen, urine [facility] Cocaine screen, urine Negative [facility] Methadone metabolite Negative [facility] (EDDP), urine [facility] Opiates screen, urine Negative [facility] Oxycodone screen, Negative [facility] urine [facility] Phencyclidine screen, Negative [facility] urine [facility] Tricyclic screen, Negative [facility] urine [facility] Cannabinoid screen, Negative [facility] urine Comment: YARSANISM Drug screen minimum concentration of detectability HOSPITAL [...] requir ed. Specimen Urine Performing Organization Address [facility] Phon e Number [facility] DEPARTMENT OF PATHOLOGY AND [address] [place] [address] [address] [address] Prolactin level (04/04/2020 7:07 PM CDT)Only the most recent of2 resultswithin the time period is included. Pathologist Sig nature Prolactin 13 5 - 23 ng/mL [facility] Specimen Plasma Performing Organization Address [facility] Phon e Number [facility] DEPARTMENT OF PATHOLOGY AND [address] [place], [place] [address] [address] [address] ECG 12 lead (04/04/2020 7:02 PM CDT)Only the most recent of2 resultswithin the time period is included. Pathologist Sig nature Ventricular rate 77 [facility] Atrial rate 77 [facility] NE interval 154 [facility] QRSD interval 82 [facility] QT interval 378 [facility] QTC interval 427 [facility] P axis 1 17 [facility] QRS axis 1 16 [facility] T wave axis 11 [facility] EKG impression Normal sinus [facility] rhythm-Possible Anterior infarct , age undetermined-Abnormal ECG-In automated comparison with ECG of 12-NOV-2019 21:10,-No significant change was found- Specimen Narrative Performed At This result has an attachment that is no t available. Performing Organization Address [facility] Phon e Number [facility] MUSE [address] [place] [address] CRITICAL CARE (04/04/2020 6:48 PM CDT) Narrative Performed At Max Ron MD 04/20/2020 3:37 PM Critical Care Performed by: Enoc Byers Authorized by: Max Ron MD Critical care provider statement: Critical care time (minutes): 20 Critical care was necessary to treat or prevent imminent or life-threatening deterioration of the following condit ions: FUR COAT SEWER failure or compromise Critical care was time spent personal ly by me on the following activities: Blood draw for specimens, development of treatment plan with patient or surrogate, discussions with c onsultants, discussions with primary provider, evaluation of patient' s response to treatment, examination of patient, review of old charts, re-evalu ation of patient's condition, pulse oximetry, ordering and review of radiographic studies, ordering and review of laboratory studie s and ordering and performing treatments and interventions Vlad 'yes' if you are taking over critical care for this patient from another provider.: no Lactic acid level, SEPSIS - Now and repeat 2x every 3 hours (04/04/2020 6:33 PM CDT) Pathologist Sig nature Lactic acid 1.1 0.5 - 2.2 mmol/L [facility] Specimen Plasma Performing Organization Address [facility] Phon e Number [facility] DEPARTMENT OF PATHOLOGY AND [address] [place] [address] Phosphorus level (04/04/2020 6:33 PM CDT) Pathologist Sig nature Phosphorus 3.7 2.4 - 4.5 mg/dL [facility] Specimen Plasma Performing Organization Address City/[facility] Phon e Number [facility] DEPARTMENT OF PATHOLOGY AND [address] [place] [address] [address] Comprehensive metabolic panel (04/04/2020 6:33 PM CDT)Only the most recent of3 resultswithin the time period is included. Sodium 138 135 - 148 [facility] mEq/L [facility] Potassium 3.6 3.5 - 5.0 [facility] mEq/L [facility] Chloride 105 98 - 112 [facility] mEq/L [facility] CO2 22 (L) 24 - 31 mEq/L [facility] Anion gap 11@ANIO 7 - 15 mEq/L [facility] BUN 7 6 - 20 mg/dL [facility] Creatinine 0.46 (L) 0.50 - 0.90 [facility] mg/dL [facility] Glucose 96 65 - 99 mg/dL [facility] Calcium 9.2 8.3 - 10.2 [facility] mg/dL HOSPITAL Protein 7.1 6.3 - 8.3 [facility] Comment: g/dL HOSPITAL - 4.6-7.0 g/dL 1 week 4.4-7.6 g/dL 7 months-1year 5.1-7.3 g/dL 1-2 years 5.6-7.5 g/dL >3 years 6.0-8.0 g/dL 18-150 6.3-8.3 g/dL Albumin 3.8 3.5 - 5.0 [facility] g/dL [facility] A/G ratio 1.2 0.7 - 3.8 [facility] Alkaline phosphatase 64 35 - 104 U/L [facility] AST 20 10 - 35 U/L [facility] ALT 14 5 - 50 U/L [facility] Total bilirubin 0.4 0.0 - 1.2 [facility] mg/dL [facility] Specimen Plasma Performing Organization Address City/State/ZIP Code Phon e Number [facility] DEPARTMENT OF PATHOLOGY AND [address] [place], [place] [address] GENOMIC MEDICINE [facility] [address] [place] [address] PET Brain Metabolic Eval (03/30/2020 1:51 PM CDT) Specimen Narrative Performed At PROCEDURE: PET BRAIN METABOLIC EVAL RADIANT INDICATION: R56.9 Unspecified convulsion s, Seizures [...] cerebellar hypometabolism sugg ests a pharmacologic effect. [facility]-[id number] Procedure Note Hm Interface, Radiology Results Incoming - 03/30/2020 2:45 [...] cerebellar hypometabolism sugg ests a pharmacologic effect. [id number] Performing Organization Address City/State/ZIP Code Phon e Number [facility] [address] [place] [address] MRI Brain W Wo Contrast (03/27/2020 1:50 PM CDT)Only the most recent of2 resultswithin the time period is included. Specimen Narrative Performed At This result has an attachment that is no t available. EXAMINATION: MRI BRAIN W WO CONTRAST RADIANT CLINICAL HISTORY: R56.9 Unspecified convulsions, Sei zures COMPARISON: Brain MRI on 11/13/[address] on 03/12/20. TECHNIQUE: High-resolution brain MRI wit hout and with intravenous gadolinium contrast acquired using 7T MRI with 1Tx/32Rx head coil. Acquired sequences include MPRAGE, EL2XTIT, T2 JAEL, T2 FLAIR, SWI, and DTI [...] abnormality identified to explain patien t's seizures. [facility]-[id number] Procedure Note Hm Interface, Radiology Results Incoming - 03/28/2020 2:52 PM CDT EXAMINATION: MRI BRAIN W WO CONTRAST CLINICAL HISTORY: R56.9 Unspecified con vulsions, Seizures COMPARISON: Brain MRI on 11/13/[address] on 03/12/2020. TECHNIQUE: High-resolution brain MRI wit hout and with intravenous gadolinium contrast acquired using 7T MRI with 1Tx/32Rx head coil. Acquired sequences include MPRAGE, [id number], T2 JAEL, T2 FLAIR, SWI, and DTI [...] structural abnormality identified to explain patient's seizures. [facility]-[id number] Performing Organization Address City/State/ZIP Code Phon e Number [facility] [address] [place] [address] Epilepsy/Seizure monitoring (03/15/2020 12:14 PM CDT) Narrative Performed At This result has an attachment that is no t available. EPILEPSY MONITORING UNIT REPORT Patient Name: Heather Hope Date of : 1990 Gender: female Initial Study Start Date: 03/12/2020 Initial Study Start Time: 10:21 Current Study Start Date: 03/15/2020 Current Study Start Time: 00:00 Current Study End Date: 03/15/2020 Current Study End Time: 11:00 Indication Seizures Technical Summary Technique: Modified international 10/20 system of EEG electrode placement was used Visual Analysis of Ambulatory EEG Monitoring:This elec troencephalogram was recorded simultaneously with video throughout the tor. The EEG was visually inspected and analyzed for characterization o f the background activity in all awake and sleep states, abnormal focal and generalized features, and intenictal and ictal epileptiform activi ty. Electrical seizure activity was correlated with the patients clin ical activity recorded on video and video captured clinical events w ere correlated with simultaneously recorded EEG activity. Computer Analysis of EEG Waveforms:The EEG underwent c ontinuous computerized digital analysis that consisted of real t sailaja detection of electrical events that could be considered epileptifor m. All electrographic events identified by the detection prog cass were visually inspected in order to assess the waveform characterist ics and significance of these electrographic events. All intenctal and icta l epileptiform events are described further below with [...] final report of this monitoring stud y. Awake Recordings: The occipital dominant rhythm is 7-8 Hz and is poorly sustained. 4-5 Hz and 1.5-3 Hz activity is present in all regions. 18-22 Hz activity was present in all regions. 1.5-3 Hz activ ity and spike and sharp wave discharges were recorded in the right and l eft frontal central temporal region. Sleep Recordin.5-3 Hz activity and spike and sharp wave discharges were recorded in the right and left frontal central te mporal region. There was an accentuation of this activity during sleep. Hyperventilation: No additional abnormalities elicited . Photic Stimulation: No additional abnormalities elicit ed. Seizures: Seizure #1: This occurred at 16:02 on 03/12/2020. The patient was sitting up in bed and became confused. She had elevation of th e arms that were in a tonic posture. She then began to have rotation movem ents of the right leg followed by flexion extension movements of the rig ht leg. The seizure lasted approximately 2 minutes. The onset of the seizu re was associated with an attenuation of the background, followed by rhy thmic 4-6 Hz activity in the frontal central regions with higher am plitude on the left side. This evolved and was then symmetric over both he mispheres. Impression: The findings are consistent with a mild di ffuse disturbance in brain function with focal potentially epileptogenic le sions in the right and left frontal central temporal region. One seizure occurred on 03/12/2020 that was clinically a tonic seizure with pos sible onset in the left frontal central temporal region. ICD-10 Code: R569 Epilepsy/Seizure monitoring (03/15/2020 12:12 AM CDT) Narrative Performed At This result has an attachment that is no t available. EPILEPSY MONITORING UNIT REPORT Patient Name: Heather Hope Date of : 1990 Gender: female Initial Study Start Date: 03/12/2020 Initial Study Start Time: 10:21 Current Study Start Date: 03/14/2020 Current Study Start Time: 00:00 Current Study End Date: 03/14/2020 Current Study End Time: 23:59 Indication Seizures Technical Summary Technique: Modified international 10/20 system of EEG electrode placement was used Visual Analysis of Ambulatory EEG Monitoring:This elec troencephalogram was recorded simultaneously with video throughout the sonya toring. The EEG was visually inspected and analyzed for characterization o f the background activity in all awake and sleep states, abnormal focal and generalized features, and intenictal and ictal epileptiform activi ty. Electrical seizure activity was correlated with the patients clin ical activity recorded on video and video captured clinical events w ere correlated with simultaneously recorded EEG activity. Computer Analysis of EEG Waveforms:The EEG underwent c ontinuous computerized digital analysis that consisted of real t sailaja detection of electrical events that could be considered epileptifor m. All electrographic events identified by the detection prog cass were visually inspected in order to assess the waveform characterist ics and significance of these electrographic events. All intenctal and icta l epileptiform events are described further below with [...] final report of this monitoring stud y. Awake Recordings: The occipital dominant rhythm is 7-8 Hz and is poorly sustained. 4-5 Hz and 1.5-3 Hz activity is present in all regions. 18-22 Hz activity was present in all regions. 1.5-3 Hz activ ity and spike and sharp wave discharges were recorded in the right and l eft frontal central temporal region. Sleep Recordin.5-3 Hz activity and spike and sharp wave discharges were recorded in the right and left frontal central te mporal region. There was an accentuation of this activity during sleep. Hyperventilation: No additional abnormalities elicited . Photic Stimulation: No additional abnormalities elicit ed. Seizures: Seizure #1: This occurred at 16:02 on 03/12/2020. The patient was sitting up in bed and became confused. She had elevation of th e arms that were in a tonic posture. She then began to have rotation movem ents of the right leg followed by flexion extension movements of the rig ht leg. The seizure lasted approximately 2 minutes. The onset of the seizu re was associated with an attenuation of the background, followed by rhy thmic 4-6 Hz activity in the frontal central regions with higher am plitude on the left side. This evolved and was then symmetric over both he mispheres. Impression: The findings are consistent with a mild di ffuse disturbance in brain function with focal potentially epileptogenic le sions in the right and left frontal central temporal region. One seizure occurred on 03/12/2020 that was clinically a tonic seizure with pos sible onset in the left frontal central temporal region. ICD-10 Code: R569 Epilepsy/Seizure monitoring (03/14/2020 12:24 AM CDT) Narrative Performed At This result has an attachment that is no t available. EPILEPSY MONITORING UNIT REPORT Patient Name: Heather Hope Date of : 1990 Gender: female Initial Study Start Date: 03/12/2020 Initial Study Start Time: 10:21 Current Study Start Date: 03/13/2020 Current Study Start Time: 00:00 Current Study End Date: 03/13/2020 Current Study End Time: 23:59 Indication Seizures Technical Summary Technique: Modified international 10/20 system of EEG electrode placement was used Visual Analysis of Ambulatory EEG Monitoring:This elec troencephalogram was recorded simultaneously with video throughout the toring. The EEG was visually inspected and analyzed for characterization o f the background activity in all awake and sleep states, abnormal focal and generalized features, and intenictal and ictal epileptiform activi ty. Electrical seizure activity was correlated with the patients clin ical activity recorded on video and video captured clinical events w ere correlated with simultaneously recorded EEG activity. Computer Analysis of EEG Waveforms:The EEG underwent c ontinuous computerized digital analysis that consisted of real t sailaja detection of electrical events that could be considered epileptifor m. All electrographic events identified by the detection prog cass were visually inspected in order to assess the waveform characterist ics and significance of these electrographic events. All intenctal and icta l epileptiform events are described further below with [...] final report of this monitoring stud y. Awake Recordings: The occipital dominant rhythm is 7-8 Hz and is poorly sustained. 4-5 Hz and 1.5-3 Hz activity is present in all regions. 18-22 Hz activity was present in all regions. 1.5-3 Hz activ ity and spike and sharp wave discharges were recorded in the right and l eft frontal central temporal region. Sleep Recordin.5-3 Hz activity and spike and sharp wave discharges were recorded in the right and left frontal central te mporal region. There was an accentuation of this activity during sleep. Hyperventilation: No additional abnormalities elicited . Photic Stimulation: No additional abnormalities elicit ed. Seizures: Seizure #1: This occurred at 16:02 on 03/12/2020. The patient was sitting up in bed and became confused. She had elevation of th e arms that were in a tonic posture. She then began to have rotation movem ents of the right leg followed by flexion extension movements of the rig ht leg. The seizure lasted approximately 2 minutes. The onset of the seizu re was associated with an attenuation of the background, followed by rhy thmic 4-6 Hz activity in the frontal central regions with higher am plitude on the left side. This evolved and was then symmetric over both he mispheres. Impression: The findings are consistent with a mild di ffuse disturbance in brain function with focal potentially epileptogenic le sions in the right and left frontal central temporal region. One seizure occurred on 03/12/2020 that was clinically a tonic seizure with pos sible onset in the left frontal central temporal region. ICD-10 Code: R569 Epilepsy/Seizure monitoring (03/13/2020 12:17 AM CDT) Narrative Performed At This result has an attachment that is no t available. EPILEPSY MONITORING UNIT REPORT Patient Name: Heather Hope Date of : 1990 Gender: female Initial Study Start Date: 03/12/2020 Initial Study Start Time: 10:21 Current Study Start Date: 03/12/2020 Current Study Start Time: 10:21 Current Study End Date: 03/12/2020 Current Study End Time: 23:59 Indication Seizures Technical Summary Technique: Modified international 10/20 system of EEG electrode placement was used Visual Analysis of Ambulatory EEG Monitoring:This elec troencephalogram was recorded simultaneously with video throughout the sonya toring. The EEG was visually inspected and analyzed for characterization o f the background activity in all awake and sleep states, abnormal focal and generalized features, and intenictal and ictal epileptiform activi ty. Electrical seizure activity was correlated with the patients clin ical activity recorded on video and video captured clinical events w ere correlated with simultaneously recorded EEG activity. Computer Analysis of EEG Waveforms:The EEG underwent c ontinuous computerized digital analysis that consisted of real t sailaja detection of electrical events that could be considered epileptifor m. All electrographic events identified by the detection prog cass were visually inspected in order to assess the waveform characterist ics and significance of these electrographic events. All intenctal and icta l epileptiform events are described further below with [...] final report of this monitoring stud y. Awake Recordings: The occipital dominant rhythm is 7-8 Hz and is poorly sustained. 4-5 Hz and 1.5-3 Hz activity is present in all regions. 18-22 Hz activity was present in all regions. 1.5-3 Hz activ ity and spike and sharp wave discharges were recorded in the right and l eft frontal central temporal region. Sleep Recordin.5-3 Hz activity and spike and sharp wave discharges were recorded in the right and left frontal central te mporal region. There was an accentuation of this activity during sleep. Hyperventilation: No additional abnormalities elicited . Photic Stimulation: No additional abnormalities elicit ed. Seizures: One seizure was recorded. This occurred at 1 6:02 on 03/12/2020. The patient was sitting up in bed and became confused. She had elevation of the arms that were in a tonic posture. She then beg an to have rotation movements of the right leg followed by flexion extensi on movements of the right leg. The seizure lasted approximately 2 minutes. The onset of the seizure was associated with an attenuation of the back ground, followed by rhythmic 4-6 Hz activity in the frontal central region s with higher amplitude on the left side. This evolved and was then symmetric over both hemispheres. Impression: The findings are consistent with a mild di ffuse disturbance in brain function with focal potentially epileptogenic le sions in the right and left frontal central temporal region. One seizure occurred that was clinically a tonic seizure with possible onset in the left frontal central temporal region. ICD-10 Code: R569 Continuous EEG monitoring (11/15/2019 9:41 AM CDT) [...] time period is included. Manual differential PERFORMED [facility] Neutrophils 51.0 39.0 - 69.0 % [facility] Lymphocytes 34.0 25.0 - 45.0 % [facility] Monocytes 13.0 (H) 0.0 - 10.0 % [facility] Eosinophils 2.0 0.0 - 5.0 % [facility] Basophils 0.0 0.0 - 1.0 % [facility] Metamyelocytes 0 % [facility] Promyelocytes 0 % [facility] Platelet slide review Sana adequate [facility] Anisocytosis Moderate [facility] Ovalocytes Moderate [facility] Enlarged platelets Moderate (A) [facility] Specimen Performing Organization Address City/State/ZIP Code Phon e Number [facility] DEPARTMENT OF PATHOLOGY AND [address] [place], [place] [phone] GENOMIC MEDICINE [facility] [address] [place] [address] Continuous EEG monitoring (11/15/2019 1:22 AM CDT) [...] level 20 (L) 37 - 145 ug/dL [facility] Iron binding capacity 335 200 - 400 ug/dL [facility] % Saturation 6.0 (L) 15.0 - 38.0 % [facility] Specimen Blood Performing Organization Address City/State/ZIP Code Phon e Number [facility] DEPARTMENT OF PATHOLOGY AND [address] [place] [address] [phone] [address] Ferritin level (11/13/2019 4:00 AM CDT) Pathologist [facility] Ferritin level <13 (A) 13 - 150 ng/mL [facility] Specimen Blood Performing Organization Address City/[facility] Phon e Number [facility] DEPARTMENT OF PATHOLOGY AND [address] [place] [address] [phone] [address] MARCELINO titer (11/12/2019 7:40 PM CDT) Pathologist [facility] MARCELINO titer 1:160 (A) Not-Detected [facility] MARCELINO pattern Homogeneous (A) Not-Detected [facility] Specimen Blood Performing Organization Address [facility] Phon e Number [facility] DEPARTMENT OF PATHOLOGY AND [address] [place] [address] [phone] [address] MARCELINO (11/12/2019 7:40 PM CDT) [facility] MARCELINO screen Positive (A) Negative [facility] Comment: HOSPITAL Test performed using [facility] [employer] DAPI MARCELINO kit (Indirect Immunofluorescence Assay) for Anti-Nuclear Antibody on [employer] Systemser 160 Analyzer. Specimen Blood Performing Organization Address City/[facility] Phon e Number [facility] DEPARTMENT OF PATHOLOGY AND [address] [place] [address] [phone] [address] Creatine kinase, total (CPK) (11/12/2019 7:40 PM CDT) Pathologist [facility] Creatine kinase 56 26 - 192 U/L [facility] L Specimen Performing Organization Address City/[facility] Phon e Number [facility] DEPARTMENT OF PATHOLOGY AND [address] [place] [address] [place] [phone] Cortisol level, random (11/12/2019 7:40 PM CDT) Pathologist [facility] Cortisol, random 2 ug/dL [facility] Comment: HOSPITAL Reference Ranges are not established for non-timed Cor tisol levels. Reference Range for Timed Cortisol: 6 - 10 AM 6 - 18 ug/d l 4 - 8 PM 3 - 11 ug/ dl Specimen Blood Performing Organization Address City/State/ZIP Code Phon e Number [facility] DEPARTMENT OF PATHOLOGY AND [address] [facility] [phone] GENOMIC MEDICINE [facility] [address] [place] [address] CT Cervical Spine Wo Contrast (11/12/2019 6:12 [...] subluxation identif ied in the cervical spine. [id number] Procedure Note Interface, Radiology Results Incoming - [...] subluxation identif ied in the cervical spine. [facility]-[id number] Performing Organization Address [facility]/ZIP Code Phon e Number [facility] [address] [place] [address] CT Maxillofacial Wo Contrast (11/12/2019 6:09 PM [...] unre markable. The paranasal sinuses are clear. [id number] Procedure Note Interface, Radiology Results Incoming - [...] unre markable. The paranasal sinuses are clear. [facility]-[id number] Performing Organization Address [facility] Code Phon e Number [facility] [address] [place] [address] XR Chest 1 Vw Portable (11/12/2019 5:35 [...] There is no acute cardiopulmonary dis ease. [id number] Procedure Note Interface, Radiology Results Incoming - [...] There is no acute cardiopulmonary dis ease. [id number] Performing Organization Address [facility] Phon e Number [facility] [address] [place] [phone] Alcohol level, blood (11/12/2019 5:04 PM CDT) Alcohol None Detected mg/dL [facility] Comment: HOSPITAL Normal None Detected Legal Intoxication in [place] 80 mg/dL (0.08%) - Whole Blood Toxic Concentration 200 mg/dL (0.2%) Potentially Fatal 350 - 500 mg/dL (0. 35 - 0.5%) Alcohol percent None Detected % [facility] Specimen Blood Performing Organization Address [facility] Phon e Number [facility] DEPARTMENT OF PATHOLOGY AND [address] [place] [phone] GENOMIC [address] [address] hCG qualitative, urine screen (11/12/2019 2:44 PM CDT) hCG qualitative, NegativeComment: [facility] urine Sensitivity of HCG [facility] test: 25 mIU/mL Specimen Urine Performing Organization Address [facility] Phon e Number [facility] DEPARTMENT OF PATHOLOGY AND [address] [place] [address] [phone] [address] after 05/01/2019 Advance Directives For more information, please contact: [phone] Type Date Recorded Patient Councilperson Explanati on Advance Directives, Living Will and Medical Power of Alliance Manager
--- OUTSIDE RECORDS SUMMARY | 2020-05-01 14:18 | XMS REPORT | Clinical Summary ---
:1990 Author Organization [facility] Address [address] [place] [address] Care Team Providers Name Role Phone Unavailable Primary Care Provider Unavailable Allergies No Known Allergies Medications Medication Sig Dispensed Refills Start Date End Date Status levETIRAcetam (KEPPRA) Take 1 tablet 60 tablet 2 05/19/2017 Active 1000 MG tablet (1,000 mg total) by mouth 2 (two) times daily. vitamin Take 1 tablet by 90 tablet 3 05/20/2017 Active w/mjrclnx-czic-ncnuif mouth daily. ( PLUS) 27 mg iron- [...] Signs Not on file Plan of Treatment Health Maintenance Due Date Last Done Comments CERVICAL CANCER SCREENING PAP ONLY (Age 21-65) 2010 INFLUENZA VACCINE (#1) 2020 Results Not on fileafter 05/01/2019 3741 1 Advance Directives For more information, please contact: [phone] Code Status Date Activated Date Inactivated Comments Full Code 05/14/2017 10:10 PM 05/19/2017 2:55 PM This code status was determined by: Patient
--- OUTSIDE RECORDS SUMMARY | 2020-05-01 14:21 | XMS REPORT | Summary of Care ---
:1990 Author Organization [facility] Address [address] [place] [id number] Care Team Providers Name Role Phone Doctor Unassigned, [place] Insurance Hmo Unavailable Denilson Lorenz MD Primary Care Provider Reason for Referral (Routine) Status Reason Specialty Diagnoses / Referred By Referred To Procedures Contact Contact New Request Family Medicine Diagnoses Lupus A[place]ipe, Procedures CONSULT/REFERRAL FAMILY MEDICINE DARYL Blandon [address] [place] [address] Reason for Visit Reason Comments Well Woman Exam Encounter Details Date Type Department Care Team Description [facility] for contraceptive management, unspecified type (Primary Dx); DARYL Jorgensen Well woman exam; [address] [facility] [address] Obesity (BMI 30-39.9); Street [place] A Seizures; [place] [id number] [place] [id number] Allergies No Known Allergiesdocumented as of this encounter (statuses as of 04/10/2020) Medications Medication Sig Dispensed Refills Start Date [...] bleeding, DAY Surveillance for control, oral contraceptives CLONAZEPAM ORAL Take by 0 Acti ve mouth. documented as of this encounter (statuses as of 04/10/2020) Active Problems Problem Noted Date Abnormal vaginal bleeding 08/10/2019 Seizure 02/03/2019 Obesity, unspecified classification, unspecified obesi ty type, unspecified 05/12/2018 whether serious comorbidity present Obesity (BMI 30-39.9) 05/12/2018 Well woman exam 05/12/2018 Encounter for contraceptive management, unspecified ty pe 05/12/2018 Corpus luteum cyst or hematoma 03/10/2018 Papanicolaou smear of cervix with low grade squamous i ntraepithelial 10/22/2017 lesion (LGSIL) Status epilepticus 06/14/2017 Seizures 06/13/2017 documented as of this encounter (statuses as of 04/10/2020) Resolved Problems Problem Noted Date Resolved Date [...] as of this encounter (statuses as of 04/10/2020) Immunizations Name Administration Dates Next Due Influenza [...] been in contact with No / Unsure 04/10/2020 2:24 PM CDT someone who was confirmed or suspected to have Coronavirus / COVID-19? documented as of this encounter Last Filed Vital Signs Vital Sign Reading Time Taken Comments Blood Pressure 116/76 04/10/2020 2:25 PM CDT Pulse 72 04/10/2020 2:25 PM CDT Temperature 36.2 C (97.1 F) 04/10/2020 2:25 PM CDT Respiratory Rate 16 04/10/2020 2:25 PM CDT Oxygen Saturation - - Inhaled Oxygen Concentration - - Weight 77.1 kg (170 lb) 04/10/2020 2:25 PM CDT Height 160 cm (5' 3") 04/10/2020 2:25 PM CDT Body Mass Index 30.11 04/10/2020 2:25 PM CDT documented in this encounter Patient Instructions Patient InstructionsFanny Piper LVN - 04/10/2020 2:15 PM CDT Patient Education Clinical Breast Exam Many health organizations recommend a yearly clinical breast exam. This exam may be done by a department specialist, family healthcare provider, nurse practitioner, nurse venetian blind installer, or specially trained nurse. Yearly breast exams help tomake surethat breast conditions are found early. Your healthcare providers role A healthcare professional knows the tests and follow-up care needed if a problem is found. Your clinical exam is also a great time to ask questions about breast self-exams. You can find out if yourechecking your breasts in the best way. Or you may want to ask how , breast implants, or breast reduction surgery affect the way you should check your breasts. Diagnostic tests If a clinical exam reveals a breast change, you may have other tests to find out more. These tests may include: Mammography. A low-dose X-ray of your breast tissue. Ultrasound. An imaging test that uses sound waves to create images of your breast. Biopsy. A small amount of breast tissue is removed by needle or by a cut (incision). The tissue is then checked under a microscope. Guidelines for having clinical breast exams The [place] [employer] recommends that starting at age 29, you should have a clinical breast exam every 1 to 3 years. After age 40, have a clinical breast exam each year. If youre at higher risk for breast cancer, you may need exams more often. Risk factors for breast cancer may include: Being over 50 or postmenopausal Having a family history of breast cancer Having the BRCA1 or BRCA2 gene mutation or certain other gene mutations Having more menstrual periods due to starting menstruation early(before age 12) or having a late menopause (after age 55) Having no pregnancies Having a first after age 30 Being obese Having a history of radiation treatment to your chest area Exposure to GUICHO during your mother's Not being active Drinking too much alcohol Having dense breast tissue Taking hormone therapy after menopause Other health organizations have different recommendations. Talk with your healthcare provider about what is best for you. [employer] ravi reviewed this educational content on 09/14/201919996569-5859 The [employer]. All rights reserved. This information is not intended as a substitute for professional medical care. Always follow your healthcare professional's instructions. Patient Education Breast Health: Breast Self-Awareness What is breast self-awareness? Breast self-awareness is knowing how your breasts normally look and feel. Your breasts change as yougo through different stages of your life. So its important to learn what is normal for your breasts. Knowing about your breasts helps you spot any changes in them right away. Tell your healthcare provider about any changes. Why is breast self-awareness important? Many experts now say that women should focus on breast self-awareness instead of doing a breast self-examination (BSE). These experts include the [place] [employer] and the [place] [employer]. Some experts even advise not teaching women to do a BSE. Thats because research hasnt shown a clear benefit to doing BSEs. Breast self-awareness is different than a BSE. It isnt about following a certain method and schedule. Its about knowing what's normal for your breasts. That way you can spot even small changes right away. If you see any changes, tell your healthcare provider. Changes to look for Call your healthcare provider if you find any changes in your breasts that worry you. These changes may be: A lump Nipple discharge other than breast milk, especially if it's bloody Swelling A change in size or shape Skin changes, such as redness, thickening, or dimpling of the skin Swollen lymph nodes in the armpit Nipple problems, such as pain or redness If you find a lump Call your provider if you find lumpiness in one breast. Also call if you feel something different inthe tissue or feel a definite lump. Sometimes lumpiness may be due to menstrual changes. But there may be reason for concern. Your provider may want to see you right away if you have: Nipple discharge that is bloody Skin changes on your breast, such as dimpling or puckering Its okay to be upset if you find a lump. Be sure to call your provider right away. Remember that most breast lumps are benign. This means they are not cancer. [employer] last reviewed this educational content on 10/14/201919996138-7667 The [employer]. All rights reserved. This information is not intended as a substitute for professional medical care. Always follow your healthcare professional's instructions. Patient Education Prevention Guidelines,Women Ages 18 to 39 Screening tests and vaccines are an important part of managing your health. A screening test is doneto find possible disorders or diseases in people who don't have any symptoms. The goal is to find a disease early so lifestyle changes can be made and you can be watched more closely to reduce the riskof disease, or to detect it early enough to treat it most effectively. Screening tests are not considered diagnostic, but are used to determine if more testing is needed. Health counseling is essential, too. Below are guidelines for these, for women ages 18 to 39. Talk with your healthcare provider tomake sure youre up-to-date on what you need. Screening Who needs it How often Alcohol misuse All women in this age group At routine exams Blood pressure All women in this age group Yearly checkup if your blood pressure is normal Normal blood pressure is less than 120/80 mm Hg If your blood pressure reading is higher than normal, follow the advice of your healthcare provider Breast cancer All women in this age group should talk with their healthcare providers about the needfor clinical breast exams (CBE)1 Clinical breast exam every 3 years1 Cervical cancer Women ages 21 and older Women between ages 21 and 29 should have a Pap test every 3years; women between ages 30 and 65 are advised to have a Pap test plus an HPV test every 5 years Chlamydia Sexually active women ages 24 and younger, and women at increased risk for infection Every 3 years if you're at risk or have symptoms Depression All women in this age group At routine exams Diabetes mellitus, type 2 Adults with no symptoms who are overweight or obese and have 1 or more other risk factors for diabetes At least every 3 years. Also, testing for diabetes during after the 24th week. Gonorrhea Sexually active women at increased risk for infection At routine exams Hepatitis C Anyone at increased risk At routine exams HIV All women At routine exams3 Obesity All women in this age group At routine exams Syphilis Women at increased risk for infection should talk with their healthcare provider At routine exams Tuberculosis Women at increased risk for infection should talk with their healthcare provider Ask your healthcare provider Vision All women in this age group At least 1 complete exam in your 20s, and 2 in your 30s Vaccine Who needs it How often Chickenpox (varicella) All women in this age group who have no record of this infection or vaccine2 doses; the second dose should be given 4 to 8 weeks after the first dose Hepatitis A Women at increased risk for infection should talk with their healthcare provider 2 doses given at least 6 months apart Hepatitis B Women at increased risk for infection should talk with their healthcare provider 3 doses over 6 months; second dose should be given 1 month after the first dose; the third dose should be given at least 2 months after the second dose and at least 4 months after the first dose Haemophilus influenzae Type B (HIB) Women at increased risk for infection should talk with their healthcare provider 1 to 3 doses Human papillomavirus (HPV) All women in this age group up to age 26 3 doses; the second dose should be given 1 to 2 months after the first dose and the third dose given 6 months after the first dose Influenza (flu) All women in this age group Once a year Measles, mumps, rubella (MMR) All women in this age group who have no record of these infections orvaccines 1 or 2 doses Meningococcal Women at increased risk for infection should talk with their healthcare provider 1 ormore doses Pneumococcal conjugate vaccine (PCV13)and pneumococcal polysaccharidevaccine(PPSV23) Women atincreased risk for infection should talk with their healthcare provider PCV13: 1 dose ages 19 to 65(protects against 13 types of pneumococcal bacteria) PPSV23: 1 to2 doses through age 64, or 1 dose at 65 or older (protects against 23 types of pneumococcal bacteria) Tetanus/diphtheria/pertussis (Td/Tdap) booster All women in this age group Td every 10 years, or a one-time dose of Tdap instead of a Td booster after age 18, then Td every 10 years Counseling Who needs it How often BRCA gene mutation testing for breast and ovarian cancer susceptibility Women with increased risk for having gene mutation When your risk is known Breast cancer and chemoprevention Women at high risk for breast cancer When your risk is known Diet and exercise Women who are overweight or obese When diagnosed, and then at routine exams Domestic violence Women at the age in which they are able to have children At routine exams Sexually transmitted infection prevention Women who are sexually active At routine exams Skin cancer Prevention of skin cancer in fair-skinned adults At routine exams Use of tobacco and the health effects it can cause All women in this age group Every visit 1 According to the ACS, women ages 20 to 39 years should have a clinical breast exam (CBE) as part of their routine health exam every 3 years. Breast self-exams are an option for women starting in their 20s.But the U.S. Preventive Services Task Force (USPSTF) does not recommend CBE. 2 Those who are 18 years old and not up-to-date on their childhood vaccines should get all appropriate catch-up vaccines recommended by the CDC. 3 The USPSTF recommends that all people ages 15 to 65 years be screened for HIV and those younger orolder people at increased risk. The CDC recommends that everyone between the ages of 13 and 64 get tested for HIV at least once as part of routine health care. [employer] last reviewed this educational content on 03/15/201719991608-3016 The [employer]. All rights reserved. This information is not intended as a substitute for professional medical care. Always follow your healthcare professional's instructions. Patient Education Understanding STIs When it comes to sex, nothing is risk-free. Any sexual contact with the penis, vagina, anus, or mouth can spread a sexually transmitted infection (STI). These include chlamydia, gonorrhea, herpes, HIV,and genital warts. STIs are also known as sexually transmitted diseases (STDs). The only sure way toprevent STIs is not having sex (abstinence). But there are ways to make sex safer. Use a latex condom each time you have sex. And choose your partner wisely. Use condoms for safer sex If you have sex, latex condoms provide the best protection against STIs. Latex condoms stop the exchange of body fluids that carry certain STIs. They also limit contact with affected skin. Be aware that a condom doesnt cover all skin. So affected skin that isn't covered can still transfer disease. But youre safer with a condom than without one. Use a condom even if you use other control. control methods such as the pill or IUD help prevent , but they don't protect against STIs. Choose the right condom Condoms made of latex prevent disease best. If youre allergic to latex, use polyurethane condoms instead. Male condoms fit over the penis. Female condoms line the vagina. Before buying a condom, read the label to be sure it prevents disease. Some novelty condoms dont. The right lubricant helps Buy lubricated condoms or use lubricant. This provides greater comfort and reduces the risk for condom breakage. Use only water-based lubricants. Dont use oil, lotion, or petroleum jelly. They can weaken the condom, causing breakage. Also, you may want to choose lubricants without nonoxynol-9. This spermicide may cause irritation. It can raise the risk for certain STIs. Use condoms correctly For condoms to work, they must be used the right way. Keep these tips in mind: Use a new latex condom each time you have sex. Slip the condom on the penis before any contact ismade. When ready to withdraw, hold the rim of the condom as the penis pulls out. This prevents the condom from slipping off. Check the expiration date before using a condom. Dont store condoms in places that can get hot, such as a car or a wallet that is carried in a back pocket. Get to know your partner Safer sex is a process. It involves getting to know your partner and making informed choices. Ask each other how many partners you have had in the past, and how many you have now. Find out if either ofyou has HIV or any other STI. If you decide to have sex, use a condom each time. Dont stop using condoms unless youre sure neither of you has other partners and youve both been tested to confirm you dont have HIV or other STIs. Then stay free of disease by having sex only with each other (monogamy). Keep your cool Dont let alcohol or drugs cloud your judgment. They could lead you to have sex with someone you wouldnt have chosen if you were sober. Or you might forget to use a condom. If you do plan to have sex, keep a latex condom with you. Dont wait until youre in the heat of passion to try to find one. Consider abstinence The only way to be sure you wont get an STI is to abstain from sex. Abstinence is a choice that many people make at some point in their life. Maybe you want to wait until you are sure youre readybefore you have sex. Maybe youd like a break from the responsibilities of sex for a while. Or maybe you just want to know your partner better before taking the next step. Abstinence is a choice you can make now to protect your future. [employer] last reviewed this educational content on 05/15/201819995700-2813 The [employer]. [address] [place] [address], [place] [address]. All rights reserved. This information is not intended as a substitute for professional medical care. Always follow your healthcare professional's instructions. Patient Education Understanding HIV and AIDS It's important to know how HIV can get into your body and what happens once its there. Then youll be better prepared to protect yourself or others against this virus. A person with HIV can look and feel perfectly healthy. But that person can give HIV to others as soon as he or she is infected with the virus. Having unsafe or unprotected sex or sharing needles puts you at risk for HIV. Talk with your healthcare provider about ways to protect yourself or a loved one from getting HIV. How HIV infection progresses After HIV enters the body, it attacks the immune system in the stages below. A person with HIV can infect others once the virus gets into the blood. HIV with no symptoms. A person with HIV may have no symptoms for years. The only sign of infection may be a positive blood test for HIV 2 weeks to 3 months or later after HIV enters the body. HIV with symptoms. Some people develop an illness similar to mono (mononucleosis) 2 to 4 weeks after the virus enters the body. This is called acute retroviral syndrome. Symptoms may include swollen lymph glands, chills, fever, night sweats, weakness, weight loss, skin rashes, mouth ulcers, or sore t hroat. Symptoms may be mild or the person can feel quite sick. Even without treatment the symptoms almost always go away in a few days or up to 2 to 3 weeks. Then the person has no symptoms, often for years. But over time the immune system starts to get weaker and symptoms start appearing. People at this stage may have a yeast infection in the mouth (oral thrush), shingles, skin problems, pneumonia, diarrhea that keeps coming back, or weight loss. AIDS. AIDS is the most advanced stage of HIV infection, when the immune system is severely weakened.Certain rare diseases and cancers that normally would not occur, now can occur because the body can no longer fight them well enough. It is often these diseases that cause in people with AIDS. HIV may also directly attack the brain and nervous system. This causes seizures and loss of memory and body movement. It also affects many other parts of the body. This leads to problems such as anemia, low white blood cell count, diarrhea, belly pain, skin problems, and many others. How HIV enters the body HIV is carried in semen, vaginal fluid, blood, and breastmilk. During sex, HIV can enter the body. It gets in through the fragile tissue and linings, sores, or cuts in or around the vagina, penis, anus, and mouth. During drug use, tattooing, or body piercing, the virus can enter the blood through an infected needle. A mother who has HIV can infect her child during , childbirth, and . [employer] last reviewed this educational content on 11/13/201819994527-5078 The [employer]. [address] [place] [address], [place] [address]. All rights reserved. This information is not intended as a substitute for professional medical care. Always follow your healthcare professional's instructions. Patient Education Eating Heart-Healthy Foods Eating has a big impact on your heart health. In fact, eating healthier can improve several of your heart risks at once. For instance, it helps you manage weight, cholesterol, and blood pressure. Here are ideas to help you make heart- healthy changes without giving up allthe foods and flavors you love. Getting started Talk with your healthcare provider about eating plans, such as the DASH or Mediterranean diet. You may also be referred to a dietitian. Change a few things at a time. Give yourself time to get used to a few eating changes before adding more. Work to create a tasty, healthy eating plan that you can stick to for the rest of your life. Goals for healthy eating Below are some tips to improve your eating habits: Limit saturated fats and trans fats. Saturated fats raise your levels of cholesterol, so keep these fats to a minimum. They are found in foods such as fatty meats, whole milk, cheese, and palm and coconut oils. Avoid trans fats because they lower good cholesterol as well as raise bad cholesterol. Trans fats are most often found in processed foods, such as pastries, cookies, pies, muffins, fried foods, stick margarines, and shortening. Reduce how much sodium (salt) you have. Eating too much salt may increase your blood pressure. Limit your sodium intake to 2,300 milligrams (mg) per day(the amount in 1 teaspoon of salt), or less if your healthcare provider recommends it. Dining out less often and eating fewer processed foods aretwo great ways to decrease the amount of salt you consume. At home, flavor your foods with other spices and herbs instead of salt. Managing calories. A calorie is a unit of energy. Your body gomez calories for fuel, but if you eat more calories than your body gomez, the extras are stored as fat. Your healthcare provider can help you create a diet plan to manage your calories. This will likely include eating healthier foods andgetting regular exercise. To help you track your progress, keep a diary to record what you eat and how often you exercise. Choose the right foods Aim to make these foods royal of your diet. If you have diabetes, you may have different recommendations than what is listed here: Fruits and vegetables provide plenty of nutrients without a lot of calories. At meals, fill half your plate with these foods. Choose between fresh, frozen, canned, or dried without added sauces, salt, or sugars. Split the other half of your plate between whole grains and lean protein. Whole grains are high in fiber and rich in vitamins and nutrients. Good choices include whole wheat bread, pasta, oats, and brown rice. Make at least half of your grains whole grains. Lean proteins give you nutrition with less fat. Good choices include fish, skinless chicken and turkey, and beans. Draining the fat from cooked ground meat is another way to reduce the amount of fatyou eat. Low-fat and nonfat dairy provide nutrients without a lot of fat. Try low-fat or nonfat milk, cheese, or yogurt. Healthy fats can be good for you in small amounts. These are unsaturated fats, such as olive oil,nuts, and fish. Try to have at least 2 servings per week of fatty fish, such as salmon, sardines, mackerel, rainbow trout, and albacore tuna. These contain omega-3 fatty acids, which are good for your heart. Flaxseed and walnuts are other sources of heart-healthy fats. More on heart-healthy eating Read food labels Healthy eating starts at the grocery store. Be sure to pay attention to food labels on packaged foods. Look for products that are high in fiber and protein, and low in saturated fat, added sugars, and sodium. Avoid products that contain trans fat. And pay close attention to serving size. For instance,if you plan to eat two servings, double all the numbers on the label. Prepare food right A hogue part of healthy cooking is cutting down on added fat, sugar and salt. Look on the internet forlower-fat, lower-sodium recipes without a lot of added sugars. Also try these tips: Remove fat from meat and skin from poultry before cooking. Skim fat from the surface of soups and sauces. Broil, roast, boil, bake, steam, grill, or microwave food without added fats. Choose ingredients that spice up your food without adding calories, fat, sugar, or sodium. Try these items: horseradish, hot sauce, lemon, mustard, nonfat salad dressings, and vinegar. Small amountsof olive oil-based vinaigrettes are OK, too. For salt-free herbs and spices, try basil, cilantro, cinnamon, cumin, paprika, pepper, and moy. [employer] last reviewed this educational content on 12/14/201919990932-0921 The [employer]. All rights reserved. This information is not intended as a substitute for professional medical care. Always follow your healthcare professional's instructions. Patient Education Understanding [employer] MyPlate The [employer] has guidelines to help you make healthy food choices. These are called MyPlate. MyPlate shows the food groups that make up healthy meals using the image of a place setting. Before you eat, think about the healthiest choices for what to put on your plate or in your cup or bowl. To learn more about building a healthy plate, visit www.choosemyplate.gov. The food groups Fruits. Any fruit or 100% fruit juice counts as part of the Fruit Group. Fruits may be fresh, canned, frozen, or dried, and may be whole, cut-up, or pureed. Make 1/2 of your plate fruits and vegetables. Vegetables. Any vegetable or 100% vegetable juice counts as a member of the Vegetable Group. Vegetables may be fresh, frozen, canned, or dried. They can be served raw or cooked and may be whole, cut-up, or mashed. Make 1/2 of your plate fruits and vegetables. Grains. All foods made from grains are part of the Grains Group. These include wheat, rice, oats,cornmeal, and barley. Grains are often used to make foods such as bread, pasta, oatmeal, cereal, tortillas, and grits. Grains should be no more than 1/4 of your plate. At least half of your grains should be whole grains. Protein. This group includes meat, poultry, seafood, beans and peas, eggs, processed soy products(such as tofu), nuts (including nut butters), and seeds. Make protein choices no more than 1/4 of your plate. Meat and poultry choices should be lean or low fat. Dairy. The Dairy Group includes all fluid milk products and foods made from milk that contain calcium, such as yogurt and cheese. (Foods that have little calcium, such as cream, butter, and cream cheese, are not part of this group.) Most dairy choices should be low-fat or fat-free. Oils. Oils aren't a food group, but they do contain essential nutrients. However it's important to watch your intake of oils. These are fats that are liquid at room temperature. They include canola,corn, olive, soybean, vegetable, and sunflower oil. Foods that are mainly oil include mayonnaise, certain salad dressings, and soft margarines. You likely already get your daily oil allowance from the foods you eat. Things to limit Eating healthy also means limiting these things in your diet: Salt (sodium). Many processed foods have a lot of sodium. To keep sodium intake down, eat fresh vegetables, meats, poultry, and seafood when possible. Purchase low-sodium, reduced-sodium, or [id number] food products at the store. And don't add salt to your meals at home. Instead, season them with herbs and spices such as dill, oregano, cumin, and paprika. Or try adding flavor with lemon or limezest and juice. Saturated fat. Saturated fats are most often found in animal products such as beef, pork, and chicken. They are often solid at room temperature, such as butter. To reduce your saturated fat intake, choose leaner cuts of meat and poultry. And try healthier cooking methods such as grilling, broiling,roasting, or baking. For a simple lower-fat swap, use plain nonfat yogurt instead of mayonnaise whenmaking potato salad or macaroni salad. Added sugars. These are sugars added to foods. They are in foods such as ice cream, candy, soda, fruit drinks, sports drinks, energy drinks, cookies, pastries, jams, and syrups. Cut down on added sugars by sharing sweet treats with a family member or friend. You can also choose fruit for dessert, and drink water or other unsweetened beverages. [employer] last reviewed this educational content on 11/14/201919990090-4469 The [employer]. All rights reserved. This information is not intended as a substitute for professional medical care. Always follow your healthcare professional's instructions. documented in this encounter Progress Notes Savanna Haines, WHCNP - 04/10/2020 2:15 PM CDT Chief complaint: Chief Complaint Patient presents with Well Woman Exam HPI: the patient is here today for WWE and contraceptive mangement. She reports she is doing well today with no issue or concerns. She does however report seizures and state she was recently d/c from the hospital due to seizures, she reports she is on meds and has a neurologist that she sees. She reports that some lab work she had done a while ago stated something in regards to lupus and she desires to be screened. She declines the need for STI testing today reporting no new sexual partners and she declines the need for control as well. Pt (denies) current or past physical, sexual or emotional abuse. Histories Past Medical History: Diagnosis Date Chlamydia [...] Needs Financial resource strain: Patient refused Food insecurity Worry: Patient refused Inability: Patient refused Transportation needs Medical: Patient refused Non-medical: Patient refused Tobacco Use Smoking status: Former Smoker Smokeless tobacco: Never Used Substance and Sexual Activity Alcohol use: No Drug use: No Sexual activity: Not Currently Partners: Male control/protection: None Comment: Last intercourse: 10/14/2019 Lifestyle Physical activity Days per week: Not on file Minutes per session: Not on file Stress: Not on file Relationships Social connections Talks on phone: Not on file Gets together: Not on file Attends latter-day service: Not on file Active member of club or organization: Not on file Attends meetings of clubs or organizations: Not on file Relationship status: Not on file Intimate partner violence Fear of current or ex partner: Not on file Emotionally abused: Not on file Physically abused: Not on file Forced sexual activity: Not on file Other Topics Concern Not on file Social History Narrative Patient denies abuse or domestic violence. Patient lives with mom, patient feels safe at home. Social History Substance and Sexual Activity Sexual Activity Not Currently Partners: Male control/protection: None Comment: Last intercourse: 10/14/2019 Labs Labs are pending. and Admission on 01/16/2020, Discharged on 01/17/2020 Component Date Value APPEARANCE 01/16/2020 Hazy* COLOR 01/16/2020 Yellow PH 01/16/2020 5.0 SP GRAVITY 01/16/2020 1.041* GLU U QUAL 01/16/2020 Normal BLOOD 01/16/2020 Negative KETONES 01/16/2020 80 mg/dL* PROTEIN 01/16/2020 30 mg/dL* UROBILIN 01/16/2020 Normal BILIRUBIN 01/16/2020 Negative NITRITE 01/16/2020 Negative LEUK BLAKE 01/16/2020 25/uL* RBC/HPF 01/16/2020 2 WBC/HPF 01/16/2020 6* BACTERIA 01/16/2020 Moderate* MUCOUS 01/16/2020 Marked* SQ EPITH 01/16/2020 11 POCT PREG 01/16/2020 Negative On board controls accept* 01/16/2020 Present POCT PREG LOT # 01/16/2020 [id number] POCT PREG TEST DA* 01/16/2020 03/14/2021 WBC 01/16/2020 10.07 RBC 01/16/2020 4.21 HGB 01/16/2020 12.3 HCT 01/16/2020 36.8 MCV 01/16/2020 87.4 MCH 01/16/2020 29.2 MCHC 01/16/2020 33.4 RDW-SD 01/16/2020 42.8 RDW-CV 01/16/2020 13.6 PLT 01/16/2020 243 MPV 01/16/2020 10.2 NRBC/100 WBC 01/16/2020 0.0 NRBC x10^3 01/16/2020 <0.01 GRAN MAT (NEUT) % 01/16/2020 59.6 IMM GRAN % 01/16/2020 0.80 LYMPH % 01/16/2020 27.7 MONO % 01/16/2020 10.5 EOS % 01/16/2020 0.7 BASO % 01/16/2020 0.7 GRAN MAT x10^3(ANC) 01/16/2020 6.00 IMM GRAN x10^3 01/16/2020 0.08* LYMPH x10^3 01/16/2020 2.79 MONO x10^3 01/16/2020 1.06* EOS x10^3 01/16/2020 0.07 BASO x10^3 01/16/2020 0.07 NA 01/16/2020 139 K 01/16/2020 3.3* CL 01/16/2020 105 CO2 TOTAL 01/16/2020 24 AGAP 01/16/2020 10 BUN 01/16/2020 10 GLUCOSE 01/16/2020 91 CREATININE 01/16/2020 0.51 CALCIUM 01/16/2020 9.2 eGFR Calculation (Non-Af* 01/16/2020 141.6 eGFR Calculation (Michelle* 01/16/2020 171.6 TOTAL BILI 01/16/2020 0.5 BILI UNCON 01/16/2020 0.6 BILI CONJ 01/16/2020 0.0 T PROTEIN 01/16/2020 7.6 ALBUMIN 01/16/2020 4.4 ALK PHOS 01/16/2020 65 ALTv 01/16/2020 14 AST(SGOT) 01/16/2020 30 BENZO U 01/17/2020 Negative SHAHANA U 01/17/2020 Negative AMPHET 01/17/2020 Negative THC 01/17/2020 Negative METHADONE 01/17/2020 Negative Meth U 01/17/2020 Negative OPIATES 01/17/2020 Negative Cocaine Metabolite 01/17/2020 Negative PROPOXY 01/17/2020 Negative Tric U 01/17/2020 Negative PCP 01/17/2020 Negative OXYCOD 01/17/2020 Negative Radiology No new radiology. Allergies Heather has No Known Allergies. Medications Heather has a current medication list which includes the following prescription(s): clonazepam, medroxyprogesterone, fluoxetine hcl, rufinamide, perampanel, ibuprofen, and levetiracetam. Review of Systems Constitutional: Negative. HENT: Negative. Eyes: Negative. Respiratory: Negative. Breasts: Negative. Cardiovascular: Negative. Gastrointestinal: Negative. Genitourinary: Negative. Musculoskeletal: Negative. Skin: Negative. Neurological: Negative. Psychiatric/Behavioral: Negative. Endocrine: Endocrine negative BP 116/76 (BP Location: Right arm, Patient Position: Sitting, BP CUFF SIZE: Adult Medium) | Pulse 72 | Temp 36.2 C (97.1 F) (Oral) | Resp 16 | Ht 5' 3" (1.6 m) | Wt 170 lb (77.1 kg) | LMP 03/15/2020 (Approximate) | BMI 30.11 kg/m Pregravid BMI: Could not be calculated Physical Exam Vitals reviewed. Constitutional: She is oriented to person, place, and time. She appears well- developed. Her body habitus is normal. Neck: No tenderness and no mass. No thyroid nodules and no thyromegaly palpated. No neck adenopathy. Cardiovascular: Regular rate and rhythm. No gallop, no friction rub and no murmur auscultated. No peripheral edema present. Pulmonary/Chest: Breath sounds clear to auscultation. Normal inspiratory effort. Abdominal: Abdomen is soft. No mass palpated. No tenderness present. There is no hepatosplenomegaly,splenomegaly or hepatomegaly. There is no rigidity. No hernia palpated or inspected. Neuro/Psychiatric: She has a normal mood and affect. She is oriented to person, place, and time. Skin: No lesion, no rash and no ulceration present. Lymphadenopathy: No neck adenopathy present. No axillary adenopathy present. No inguinal adenopathy present. Breast: Right breast exhibits no mass, no nipple discharge and no tenderness. Left breast exhibits no mass, no nipple discharge and no tenderness. Breasts are symmetrical. Normal left breast and normalright breast Rectal: Rectal exam with normal anal tone. No mass, no external hemorrhoid and no internal hemorrhoid palpated or inspected. External genitalia: Normal external genitalia appropriate for age. Normal hair distribution. No labial lesion. Urethral meatus: Normal urethral meatus size, location and no lesion. No prolapse present. Normal urethral meatus Urethra: Normal urethra. No urethral tenderness, no mass and no urethral scarring palpated. Bladder: Bladder has no fullness, no mass palpated and no tenderness. Normal bladder Vagina:Normal vagina. No lesion inspected. Normal estrogen effect. Normal support. No abnormal vaginal discharge found. No lesions in the vagina. Cervix: Normal cervix. No lesion. No tenderness and no discharge present. Uterus: Uterus is normal size, normal contour, normal position and non-tender. Normal uterus Adnexa: Right adnexa without tenderness, ovary enlargement or mass. Left adnexa without tenderness, ovary enlargement or mass. Normal left adnexa and normal right adnexa Anus/perineum: Normal perineum and normal anus. Assessment/Plan Return to clinic in 1 year for WWE or sooner as needed Encounter for contraceptive management, unspecified type (primary encounter diagnosis) Comment: routine Plan: as needed mgmt Well woman exam Comment: routine Plan: PAP Smear-Liquid Based, HIGH RISK HPV-THIN PREP Obesity (BMI 30-39.9) Comment: see bmi Plan: BMI discussed, appropriate weight gain, sensible diet, and exercise, increased fiber and waterintake and protein low in fat. Encouraged exercise for 30 min everyday; begin regimen with caution to prevent injury. Encouraged to decrease BMI to <25. Educated on how obesity and smoking can affect future and health. Educated on the effects of chronic health problems, tobacco use, and mental health on future pregnancies and/or correction health. Seizures Comment: reports managed Plan: continue mgt with neuro Lupus Comment: reports, Plan: CONSULT/REFERRAL FAMILY MEDICINE This visit did not involve counseling and coordination that comprised more than 50% of the visit time. DARYL Carpenter 04/10/2020 3:03 PM Dotty Blevins RN - 04/10/2020 2:15 PM CDT29 year old presents to the clinic for wwe. 1) Previous BCM: None 2) Desired BCM: None 3) LMP: 03/15/2020 4) Last [place]: 10/14/2019 5) Last Pap: 07/13/2018 Results: Negative 6) Tdap: 2017 7) Gardasil: N/A 8) C/O: Patient denies any complaints 9) Patient denies history of physical, emotional, or sexual abuse. Patient states that she currently feels safe at home. DOTTY BLEVINS RN 04/10/2020 2:40 PM documented in this encounter Plan of Treatment Name Type Priority Associated Diagnoses Order S chedule PAP Smear-Liquid Based LAB Routine Well woman exam Ex pected: 04/10/2020, Expires: 2020 HIGH RISK HPV-THIN PREP LAB Routine Well woman exam E xpected: 04/10/2020, Expires: 2020 Health Maintenance Due Date Last Done Comments INFLUENZA VACCINE (#1) 2020 06/22/2017 Postponed from 02/14/2020 (Refused) Depression Screening 04/10/2021 04/10/2020 PAP SMEAR 07/13/2021 07/13/2018, 06/22/2017 DTaP,Tdap,and Td Vaccines (2 10/23/2027 10/22/2017 - Td) PNEUMOCOCCAL 0-64 YEARS Aged Out No longe r eligible based COMBINED SERIES on patient's age to complete this to [facility] documented as of this encounter Results Not on filedocumented in this encounter Visit Diagnoses Diagnosis Encounter for contraceptive management, unspecified type - Primary Obesity (BMI 30-39.9) Obesity, unspecified Seizures Other convulsions Lupus Systemic lupus erythematosus documented in this encounter Insurance Payer Benefit Plan Subscriber ID Effective Dates Phone Address Type / Group EDELMIRA HICKEY II [id number] [facility] [id number] 2019-[place] Medicaid COMM PLAN - STAR t MANAGED MEDICAID documented as of this encounter Advance Directives Name Relationship Healthcare Agent Communication Relationship Toya Schumacher Mother Health Care Agent
--- OUTSIDE RECORDS SUMMARY | 2020-05-01 14:21 | XMS REPORT | Continuity of Care Document ---
:1990 Author Organization [facility] t Address [address] [place] [place] [address] Care Team Providers Name Role Phone Asked, Pcp Primary Care Physician Unavailable Gaye MENDOZA Attending Clinician Wanda Snyder Attending Clinician Darren CRUZ Attending Clinician Unavailable Chandrika Ron MD Attending Clinician Alissa MENDOZA Attending Clinician Ninfa MENDOZA Attending Clinician Niki TAYLOR, A Attending Clinician Unavailable Di TAYLOR Attending Clinician Unavailable Adolfo Bailey MD Attending Clinician Susi Diana MD Attending Clinician BRANDO RODAS Attending Clinician Unavailable ALISSA Admitting Clinician Unavailable GAYE Admitting Clinician Unavailable Juliano DEJESUS Admitting Clinician Unavailable Payers Payer Name Policy Type Policy Effective Date Expiration Date Sour ce Number MEDICAIDMEDICAID [id number] 2019 [place] [id number] 00:00:00 Methodis t 0-PresentMedicai d CIGNACIGNA OPEN [id number] 2019 [place] ACCESS/NETWORKxx 00:00:00 Methodis t [id number] 0-PresentHMO Problems Condition Condition Condition Status Onset Resolution Last Treating Co mments Source Name Details Category Date Date Treatment Clinician Date Epilepsy Epilepsy Disease Active 2019-06 [place] 0 [facility] 00:00: st 00 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 00:00: st with with 00 generaliza generaliza tion and tion and with with intractabl intractabl e epilepsy e epilepsy Seizure Seizure Disease Active [place] 5 [facility] 00:00: st 00 Hypokalemi Hypokalemi Disease Active 2016-[address] [facility] Acute Acute Disease Active 2016-[address] [facility] encephalop encephalop 1-30 [facility] kes - athy athy 00:00: Medical 00 Martin Seizure Seizure Disease Active 2016-[address] [facility] [address] disorder disorder 07-14 [facility] Leukocytos Leukocytos Disease Active 2016-[address] is is 1-[facility] Less than Less than Disease Active 2016-[address] [facility] [address] 8 weeks 8 weeks 30 [facility] - gestation gestation 00:00: [facility] of of 00 Center Allergies, Adverse Reactions, Alerts Allergy Allergy Status Severity Reaction(s) Onset Inactive Treating Comm ents Source Name Type Date Date Clinician No Known DA Active U [facility]ie 9- [place] s 00:00: d Medical Martin No Known DA Active U 2016-06 [facility]ie 24 [facility] Social History Social Habit Start Date Stop Date Quantity Comments Source Sex Assigned At [facility] ethodist Exposure to Not sure [place] Metho dist SARS-CoV-2 (event) Tobacco use and 2020-04-26 2020-04-26 Never used [facility] ethodist exposure 00:00:00 00:00:00 Alcohol intake 2020-04-26 2020-04-26 Ex-drinker [facility] thodist 00:00:00 00:00:00 (finding) Smoking Status Start Date Stop Date Source Never smoker [place] Methodis t Medications Ordered Filled Start Stop Current Ordering Indication Dosage Frequency Signature Comments Components Source Medication Medication Date Date Medication? Clinician (SIG) Name Name cloBAZam 2019-06- Yes 30mg QD Take 3 [place] (ONFI) 10 1-12 05-11 tablets Method i mg tablet 00:00: 23:59 ([address] 00 :00 total) by mouth daily for 180 days. ergocalcife 2019-06- Yes [id number] Q7D Take 1 [place] rol 0-31 11-30 capsule [facility] (VITAMIN 00:00: 23:59 (50,000 st D2) 50,000 00 :00 Units unit total) by capsule mouth once a week for 30 days. levETIRAcet 2019-06- Yes 2250mg Q.5D Take 3 [place] (KEPPRA) 0-25 11-24 tablets Meth maude 750 MG 00:00: 23:59 (2,[address] tablet 00 :00 total) by mouth 2 (two) times a day for 30 days. cloBAZam 2019-06- No 10mg Q.5D Take 1 [place] (ONFI) 10 0-24 11-12 tablet (10 Met hodi mg tablet 00:00: 00:00 mg total) st 00 :00 by mouth 2 (two) times a day for 30 days. levETIRAcet 2019-06- No 1250mg Q.5D Take 5 [place] (KEPPRA) 0-23 10-24 tablets Meth maude 250 MG 00:00: 00:00 (1,[address] tablet 00 :00 total) by mouth 2 (two) times a day for 30 days. divalproex 2019-06- No 250mg Q.5D Take 250 [place] (DEPAKOTE) 0-01 10-01 mg by Methodi 250 MG EC 12:25: 00:[address] tablet 56 :00 (two) times a day. cloBAZam 2019-06- No 10mg QD Take 1 [place] (ONFI) 10 0-01 10-24 tablet (10 Met hodi mg tablet 00:00: 00:00 mg total) st 00 :00 by mouth nightly for 180 days. levETIRAcet 2020- No 750mg Q.5D Take 750 [place] am (KEPPRA) 8-08 10-24 mg by Method i 750 MG 00:00: 00:[address] tablet 00 :00 (two) times a day. levETIRAcet 2019- No 750mg Q.5D Take 750 [...] Take 1 [place] complex-vit 11-14 tablet by Wi marques carter 00:00: 23:[address] C-folic 00 :00 daily for acid 30 days. (FOLBEE PLUS 5 MG) 5 mg tablet per tablet cloBAZam 2019- No 10mg QD Take 1 [place] (ONFI) 10 11-14 tablet (10 Met hodi mg tablet 00:00: 23:59 mg total) st 00 :00 by mouth nightly for 30 days. ferrous 2019-2019- No 325mg Q.5D Take 1 [place] [...] Time Observation Value Comments Source Systolic blood 2020-04-26 09:37:00 131 mm[Hg] Luz pinzon Sab[facility]ist pressure Diastolic blood 2020-04-26 09:37:00 85 mm[Hg] Julee ewing [facility]ist pressure Heart rate 2020-04-26 09:37:00 99 /min Enrique Piedra Body temperature 2020-04-26 09:37:00 35.83 Melody Sonja Piedra Body height 2020-04-26 09:37:00 160 cm Enrique Piedra Body weight 2020-04-26 09:37:00 78.064 kg Enrique Piedra BMI 2020-04-26 09:37:00 30.49 kg/m2 Enrique Piedra Respiratory rate 2020-04-07 15:41:43 16 /min Sonja Piedra Oxygen saturation in 2020-04-07 15:41:43 96 /min Enrique Piedra Arterial blood by Pulse oximetry Procedures Procedure Date / Time Performing Clinician Source Performed POC GLUCOSE 2020-04-06 17:27:00 Freddy Ocasio Meth odadriano DOUBLE-STRANDED DNA 2020-04-06 16:50:00 Ninfa Johnson (DSDNA) ANTIBODIES, Ninfa CRITHIDIA CENTROMERE ANTIBODY 2020-04-06 16:50:00 Ninfa Johnson SS-B ANTIBODY 2020-04-06 16:50:00 Ninfa Johnson Wi thodist Ninfa POTASSIUM LEVEL 2020-04-05 17:40:00 Reza Avelar Meth odist HOMOCYSTINE, PLASMA 2020-04-05 17:40:00 Reza Avelar [facility] EEG AWAKE/DROWSY LESS 2020-04-05 11:03:26 Reza Avelar Sab[facility]ist THAN 41 MIN HC COMPLETE BLD COUNT 2020-04-05 04:00:00 Caesar Maxwell on Sabianist W/AUTO DIFF VITAMIN B12 LEVEL 2020-04-05 04:00:00 Reza Avelar Me thodist C-REACTIVE PROTEIN 2020-04-05 04:00:00 Reza Avelar M ethodist HOMOCYSTINE, PLASMA 2020-04-05 04:00:00 Reza Avelar RHEUMATOID FACTOR 2020-04-05 04:00:00 Reza Avelar thodist THYROID STIMULATING 2020-04-05 04:00:00 Reza Avelar HORMONE T4, FREE 2020-04-05 04:00:00 Reza Avelar Meth odist T3 2020-04-05 04:00:00 Reza Avelar Meth odist SYPHILIS TOTAL ANTIBODY 2020-04-05 04:00:00 Reza Avelar Sabianist HIV AG/AB COMBINATION 2020-04-05 04:00:00 Reza Avelar Sabianist VITAMIN D 25 HYDROXY 2020-04-05 04:00:00 Reza Avelar LEVEL BASIC METABOLIC PANEL 2020-04-05 04:00:00 Caesar Maxwell on Sabianist FOLATE LEVEL 2020-04-05 04:00:00 Caesar Maxwell Met aleah MAGNESIUM LEVEL 2020-04-05 04:00:00 Caesar Maxwell Met aleah ESTIMATED GFR 2020-04-05 04:00:00 Caesar Maxwell Met aleah COVID-19 QUALITATIVE PCR 2020-04-04 22:52:[address] HEAD WO CONTRAST 2020-04-04 21:17:59 Max Ron CBC HEMOGRAM 2020-04-04 21:00:00 Max Ron Me thodist SEDIMENTATION RATE 2020-04-04 21:00:00 Max Ron URINE CULTURE 2020-04-04 20:52:00 Max Ron Nunez Me thodist KEPPRA (LEVETIRACETAM) 2020-04-04 20:15:00 Max Ron Chandrika aguila Sabianist LEVEL URINALYSIS SCREEN AND 2020-04-04 19:19:00 Tank Ronwanda lemus [facility]ist MICROSCOPY, WITH REFLEX TO CULTURE URINE DRUGS OF ABUSE 2020-04-04 19:19:00 Tank Ronwanda Ladd on Sabianist SCREEN PROLACTIN LEVEL 2020-04-04 19:07:00 Tank Ronwanda Nunez Me thodist ECG 12-LEAD 2020-04-04 19:02:38 Tank Ronwanda Nunez Me thodist CRITICAL CARE 2020-04-04 18:48:10 Lila Byers Meth odist COMPREHENSIVE METABOLIC 2020-04-04 18:33:00 EnricotaMax del cid Chandrika Mccabe uston Sabianist PANEL LACTIC ACID LEVEL, SEPSIS 2020-04-04 18:33:00 Asaf Maxwanda Piedra - NOW AND REPEAT 2X EVERY 3 HOURS MAGNESIUM LEVEL 2020-04-04 18:33:00 EnricotaTank del cidwanda Nunez Me thodist PHOSPHORUS LEVEL 2020-04-04 18:33:00 Tank Ronwanda Nunez M ethodist ESTIMATED GFR 2020-04-04 18:33:00 Tank Ronwanda Nunez Me thodist PET BRAIN METABOLIC EVAL 2020-03-30 13:51:58 Richard Huizar Sabianist POC GLUCOSE 2020-03-30 12:29:00 Richard Huizar Meth odist MRI BRAIN W WO CONTRAST 2020-03-27 13:50:00 Richard Huizar Sabianist MONITORED VIDEO-EEG 60 2020-03-15 12:14:01 Richard Huizar on Sabianist HRS 1 MIN-74 HRS MONITORED W VIDEO DAILY 2020-03-15 00:12:21 Richard Huizar Sabianist MONITORED W VIDEO DAILY 2020-03-14 00:24:17 Richard Huizar Sabianist EEG SETUP 2020-03-13 00:17:20 Richard Huizar Meth odist HC COMPLETE BLD COUNT 2020-03-12 14:18:00 Ulises Choudhary Sabianist W/AUTO DIFF COMPREHENSIVE METABOLIC 2020-03-12 14:18:00 Ulises Choudhary Sabianist PANEL ESTIMATED GFR 2020-03-12 14:18:00 Richard Huizar Meth odist MAGNESIUM LEVEL 2020-03-12 14:18:[address] od[address] HEAD WO CONTRAST 2020-03-12 13:25:51 Ulises Choudhary COVID-19 QUALITATIVE PCR 2020-03-12 11:53:00 Ulises Choudhary Sabianist UNMONITORED VIDEO-EEG 36 2019-11-15 09:41:23 Bina Bonds HRS 1 MIN-50 HRS CBC WITH PLATELET AND 2019-11-15 04:30:00 Adrian Diana Sabianist DIFFERENTIAL Ebrahim MANUAL DIFFERENTIAL 2019-11-15 04:30:00 Adrian Diana Ebrahim BASIC METABOLIC PANEL 2019-11-15 04:00:00 Adrian Diana Sabianist Ebrahim ESTIMATED GFR 2019-11-15 04:00:00 Adrian Diana Meth odadriano Ebrahim UNMONITORED VIDEO DAILY 2019-11-15 01:22:22 Bina Bonds EEG SETUP 2019-11-14 00:26:44 Bina Bonds EEG (ROUTINE) 2019-11-13 07:46:23 Bina Bonds CBC WITH PLATELET AND 2019-11-13 04:00:00 Caesar Maxwell on Sabianist DIFFERENTIAL BASIC METABOLIC PANEL 2019-11-13 04:00:00 Caesar Maxwell on Sabianist TOTAL IRON BINDING 2019-11-13 04:00:00 Caesar Maxwell CAPACITY FERRITIN LEVEL 2019-11-13 04:00:00 Caesar Maxwell Met hodist ESTIMATED GFR 2019-11-13 04:00:00 Caesar Maxwell Met hodist MANUAL DIFFERENTIAL 2019-11-13 04:00:00 Caesar Maxwell MRI BRAIN W WO CONTRAST 2019-11-13 02:16:00 Bina Bonds Sabianist CONSULT TO OSTOMY CARE 2019-11-12 23:40:27 Caesar Maxwell [facility]ianist NURSE ECG 12-LEAD 2019-11-12 21:10:47 Bina Bonds Sabianist MARCELINO 2019-11-12 19:40:00 Bina Bonds FOLATE LEVEL 2019-11-12 19:40:00 Bina Bonds VITAMIN B12 LEVEL 2019-11-12 19:40:00 Bina Bonds Sabianist C-REACTIVE PROTEIN 2019-11-12 19:40:00 Bina Bonds on Sabianist HOMOCYSTINE, PLASMA 2019-11-12 19:40:00 Bina Bonds Sabianist CORTISOL LEVEL, RANDOM 2019-11-12 19:40:00 Bina Bonds Sabianist SEDIMENTATION RATE 2019-11-12 19:40:00 Bina Bonds on Sabianist RHEUMATOID FACTOR 2019-11-12 19:40:00 Bina Bonds Sabianist THYROID STIMULATING 2019-11-12 19:40:00 Bina Bonds Sabianist HORMONE T4, FREE 2019-11-12 19:40:00 Bina Bonds Sabianist SYPHILIS TOTAL ANTIBODY 2019-11-12 19:40:00 Bina Bonds HIV AG/AB COMBINATION 2019-11-12 19:40:00 Bina Bonds Sabianist VITAMIN D 25 HYDROXY 2019-11-12 19:40:00 Bina Bonds Sabianist LEVEL CREATINE KINASE, TOTAL 2019-11-12 19:40:00 Shari Bailey on Sabianist (CPK) Adolfo PROLACTIN LEVEL 2019-11-12 19:40:00 Shari Bailey Meth odadriano Mata MARCELINO TITER 2019-11-12 19:40:00 Shari Bailey Meth nitin Mata CT CERVICAL SPINE WO 2019-11-12 18:12:54 eLo Shari Nunez Sabianist CONTRAST Adolfo CT MAXILLOFACIAL WO 2019-11-12 18:09:40 Leo Shari Nunez Sabianist CONTRAST Adolfo CT HEAD WO CONTRAST 2019-11-12 18:09:19 Manas Baileymayda Nunez Sabianist Adolfo XR CHEST 1 VW PORTABLE 2019-11-12 17:35:36 Leo Shari Ladd on Sabianist Adolfo HC COMPLETE BLD COUNT 2019-11-12 17:04:00 Shari Bailey Sabianist W/AUTO DIFF [facility] COMPREHENSIVE METABOLIC 2019-11-12 17:04:00 Shari Bailey Sabianist PANEL [facility] ALCOHOL LEVEL, BLOOD 2019-11-12 17:04:00 Leo Shari Cruzist Adolfo KEPPRA (LEVETIRACETAM) 2019-11-12 17:04:00 Shari Bailey on Sabianist LEVEL [facility] ESTIMATED GFR 2019-11-12 17:04:00 BaileyManas chasemayda Nunez Meth odist Adolfo URINE CULTURE 2019-11-12 14:44:00 Keanu Flores Meth odist URINALYSIS SCREEN AND 2019-11-12 14:44:00 Keanu Flores Sabianist MICROSCOPY, WITH REFLEX TO CULTURE HCG QUALITATIVE, URINE 2019-11-12 14:44:00 Keanu Flores on Sabianist SCREEN URINE DRUGS OF ABUSE 2019-11-12 14:44:00 Keanu Flores Sabianist SCREEN Plan of Care Planned Activity Planned Date Details Comments Source Future Scheduled 2020-02-[address] [facility] - Test 00:00:00 (#1) [code = [facility] INFLUENZA VACCINE (#1)] Future Scheduled 2020-01-14 INFLU[place]ZA VACCINE [place] [facility] Test 00:00:00 [code = INFLUENZA VACCINE] Future Scheduled [address] [facility] - Test 00:00:00 malignant neoplasm Medical C enter of cervix (procedure) [code = 640420758] Future Scheduled 2010 Screening for [facility] Me thodist Test 00:00:00 malignant neoplasm of cervix (procedure) [code = 929649840] Encounters Start End Encounter Admission Attending Care Care Encounter Source Date/Time Date/Time Type Type Clinicians Facility Department ID 2020-04-26 2020-04-26 Outpatient RICHARD HUIZAR [facility] [id number] [place] 00:00:00 00:00:[address] 2020-04-10 2020-04-10 Office Yancy, [facility] [id number] 14:14:37 15:26:08 Visit Savanna Muñoz [employer] [id number] [facility] [id number] MATERNAL [id number] & CHILD [address] [place] [address] 2020-04-04 2020-04-07 Inpatient NINFA, [facility] [id number] [place] 00:00:00 00:00:00 YAHYNila [address] 2020-03-30 2020-03-30 Outpatient RICHARD HUIZAR [facility] [id number] [place] 00:00:00 00:00:[address] 2020-03-27 2020-03-27 Outpatient RICHARD HUIZAR [facility] [id number] [place] 00:00:00 00:00:[address] 2020-03-12 2020-03-15 Inpatient GAYE [facility] [id number] [place] 00:00:00 00:00:[address] 2020-02-16 2020-02-16 Outpatient RICHARD HUIZAR [facility] [id number] [place] 00:00:00 00:00:[address] 2019-11-12 2019-11-15 Inpatient LIANA [facility] [id number] [place] 00:00:00 00:00:[address] ADRIAN [address] Results Test Description Test Test Results Result Source Time Comments Comments Epilepsy/Seizure 2020-04- EPILEPSY MONITORING UNIT [place] monitoring REPORT Patient Name: Met bullard 09:01:11 Heather Hope Date of : 1990 Gender: female Initial Study Start Date: 03/12/2020Initial Study Start Time: 10:21 Current Study Start Date: 03/15/2020Current Study Start Time: 00:00 Current Study End Date: 03/15/2020Current Study End Time: 11:00 IndicationSeizures Technical SummaryTechnique: Modified international 10/20 system of EEG electrode placement was used Visual Analysis of Ambulatory EEG Monitoring:This electroencephalogram was recorded simultaneously with video throughout the monitoring. The EEG was visually inspected and analyzed for characterization of the background activity in all awake and sleep states, abnormal focal and generalized features, and intenictal and ictal epileptiform activity. Electrical seizure activity was correlated with the patients clinical activity recorded on video and video captured clinical events were correlated with simultaneously recorded EEG activity. Computer Analysis of EEG Waveforms:The EEG underwent continuous computerized digital analysis that consisted of real time detection of electrical events that could be considered epileptiform. All electrographic events identified by the detection program were visually inspected in order to assess the waveform characteristics and significance of these electrographic events. All intenctal and ictal epileptiform events are described further [...] the final report of this monitoring study. Awake Recordings: The occipital dominant rhythm is 7-8 Hz and is poorly sustained. 4-5 Hz and 1.5-3 Hz activity is present in all regions. 18-22 Hz activity was present in all regions. 1.5-3 Hz activity and spike and sharp wave discharges were recorded in the right and left frontal central temporal region. Sleep Recordin.5-3 Hz activity and spike and sharp wave discharges were recorded in the right and left frontal central temporal region. There was an accentuation of this activity during sleep. Hyperventilation: No additional abnormalities elicited. Photic Stimulation: No additional abnormalities elicited. Seizures: Seizure #1: This occurred at 16:02 on 03/12/2020. The patient was sitting up in bed and became confused. She had elevation of the arms that were in a tonic posture. She then began to have rotation movements of the right leg followed by flexion extension movements of the right leg. The seizure lasted approximately 2 minutes. The onset of the seizure was associated with an attenuation of the background, followed by rhythmic 4-6 Hz activity in the frontal central regions with higher amplitude on the left side. This evolved and was then symmetric over both hemispheres. Impression: The findings are consistent with a mild diffuse disturbance in brain function with focal potentially epileptogenic lesions in the right and left frontal central temporal region. One seizure occurred on 03/12/2020 that was clinically a tonic seizure with possible onset in the left frontal central temporal region. ICD-10 Code: R569 Epilepsy/Seizure 2020-04- EPILEPSY MONITORING UNIT [facility] 09 REPORT Patient Name: Met bullard 09:00:05 Heather Hope Date of : 1990 Gender: female Initial Study Start Date: 03/12/2020Initial Study Start Time: 10:21 Current Study Start Date: 03/14/2020Current Study Start Time: 00:00 Current Study End Date: 03/14/2020Current Study End Time: 23:59 IndicationSeizures Technical SummaryTechnique: Modified international 10/20 system of EEG electrode placement was used Visual Analysis of Ambulatory EEG Monitoring:This electroencephalogram was recorded simultaneously with video throughout the monitoring. The EEG was visually inspected and analyzed for characterization of the background activity in all awake and sleep states, abnormal focal and generalized features, and intenictal and ictal epileptiform activity. Electrical seizure activity was correlated with the patients clinical activity recorded on video and video captured clinical events were correlated with simultaneously recorded EEG activity. Computer Analysis of EEG Waveforms:The EEG underwent continuous computerized digital analysis that consisted of real time detection of electrical events that could be considered epileptiform. All electrographic events identified by the detection program were visually inspected in order to assess the waveform characteristics and significance of these electrographic events. All intenctal and ictal epileptiform events are described further [...] the final report of this monitoring study. Awake Recordings: The occipital dominant rhythm is 7-8 Hz and is poorly sustained. 4-5 Hz and 1.5-3 Hz activity is present in all regions. 18-22 Hz activity was present in all regions. 1.5-3 Hz activity and spike and sharp wave discharges were recorded in the right and left frontal central temporal region. Sleep Recordin.5-3 Hz activity and spike and sharp wave discharges were recorded in the right and left frontal central temporal region. There was an accentuation of this activity during sleep. Hyperventilation: No additional abnormalities elicited. Photic Stimulation: No additional abnormalities elicited. Seizures: Seizure #1: This occurred at 16:02 on 03/12/2020. The patient was sitting up in bed and became confused. She had elevation of the arms that were in a tonic posture. She then began to have rotation movements of the right leg followed by flexion extension movements of the right leg. The seizure lasted approximately 2 minutes. The onset of the seizure was associated with an attenuation of the background, followed by rhythmic 4-6 Hz activity in the frontal central regions with higher amplitude on the left side. This evolved and was then symmetric over both hemispheres. Impression: The findings are consistent with a mild diffuse disturbance in brain function with focal potentially epileptogenic lesions in the right and left frontal central temporal region. One seizure occurred on 03/12/2020 that was clinically a tonic seizure with possible onset in the left frontal central temporal region. ICD-10 Code: R569 Epilepsy/Seizure 2020-04- EPILEPSY MONITORING UNIT [facility] 09 REPORT Patient Name: Met bullard 08:55:34 Heather Hope Date of : 1990 Gender: female Initial Study Start Date: 03/12/2020Initial Study Start Time: 10:21 Current Study Start Date: 03/13/2020Current Study Start Time: 00:00 Current Study End Date: 03/13/2020Current Study End Time: 23:59 IndicationSeizures Technical SummaryTechnique: Modified international 10/20 system of EEG electrode placement was used Visual Analysis of Ambulatory EEG Monitoring:This electroencephalogram was recorded simultaneously with video throughout the monitoring. The EEG was visually inspected and analyzed for characterization of the background activity in all awake and sleep states, abnormal focal and generalized features, and intenictal and ictal epileptiform activity. Electrical seizure activity was correlated with the patients clinical activity recorded on video and video captured clinical events were correlated with simultaneously recorded EEG activity. Computer Analysis of EEG Waveforms:The EEG underwent continuous computerized digital analysis that consisted of real time detection of electrical events that could be considered epileptiform. All electrographic events identified by the detection program were visually inspected in order to assess the waveform characteristics and significance of these electrographic events. All intenctal and ictal epileptiform events are described further [...] the final report of this monitoring study. Awake Recordings: The occipital dominant rhythm is 7-8 Hz and is poorly sustained. 4-5 Hz and 1.5-3 Hz activity is present in all regions. 18-22 Hz activity was present in all regions. 1.5-3 Hz activity and spike and sharp wave discharges were recorded in the right and left frontal central temporal region. Sleep Recordin.5-3 Hz activity and spike and sharp wave discharges were recorded in the right and left frontal central temporal region. There was an accentuation of this activity during sleep. Hyperventilation: No additional abnormalities elicited. Photic Stimulation: No additional abnormalities elicited. Seizures: Seizure #1: This occurred at 16:02 on 03/12/2020. The patient was sitting up in bed and became confused. She had elevation of the arms that were in a tonic posture. She then began to have rotation movements of the right leg followed by flexion extension movements of the right leg. The seizure lasted approximately 2 minutes. The onset of the seizure was associated with an attenuation of the background, followed by rhythmic 4-6 Hz activity in the frontal central regions with higher amplitude on the left side. This evolved and was then symmetric over both hemispheres. Impression: The findings are consistent with a mild diffuse disturbance in brain function with focal potentially epileptogenic lesions in the right and left frontal central temporal region. One seizure occurred on 03/12/2020 that was clinically a tonic seizure with possible onset in the left frontal central temporal region. ICD-10 Code: R569 Epilepsy/Seizure 2020-04- EPILEPSY MONITORING UNIT [facility] 09 REPORT Patient Name: Met bullard 08:45:34 Heather oHpe Date of : 1990 Gender: female Initial Study Start Date: 03/12/2020Initial Study Start Time: 10: Current Study Start Date: 03/12/2020Current Study Start Time: 10: Current Study End Date: 03/12/2020Current Study End Time: 23:59 IndicationSeizures Technical SummaryTechnique: Modified international 10/20 system of EEG electrode placement was used Visual Analysis of Ambulatory EEG Monitoring:This electroencephalogram was recorded simultaneously with video throughout the monitoring. The EEG was visually inspected and analyzed for characterization of the background activity in all awake and sleep states, abnormal focal and generalized features, and intenictal and ictal epileptiform activity. Electrical seizure activity was correlated with the patients clinical activity recorded on video and video captured clinical events were correlated with simultaneously recorded EEG activity. Computer Analysis of EEG Waveforms:The EEG underwent continuous computerized digital analysis that consisted of real time detection of electrical events that could be considered epileptiform. All electrographic events identified by the detection program were visually inspected in order to assess the waveform characteristics and significance of these electrographic events. All intenctal and ictal epileptiform events are described further [...] the final report of this monitoring study. Awake Recordings: The occipital dominant rhythm is 7-8 Hz and is poorly sustained. 4-5 Hz and 1.5-3 Hz activity is present in all regions. 18-22 Hz activity was present in all regions. 1.5-3 Hz activity and spike and sharp wave discharges were recorded in the right and left frontal central temporal region. Sleep Recordin.5-3 Hz activity and spike and sharp wave discharges were recorded in the right and left frontal central temporal region. There was an accentuation of this activity during sleep. Hyperventilation: No additional abnormalities elicited. Photic Stimulation: No additional abnormalities elicited. Seizures: One seizure was recorded. This occurred at 16:02 on 03/12/2020. The patient was sitting up in bed and became confused. She had elevation of the arms that were in a tonic posture. She then began to have rotation movements of the right leg followed by flexion extension movements of the right leg. The seizure lasted approximately 2 minutes. The onset of the seizure was associated with an attenuation of the background, followed by rhythmic 4-6 Hz activity in the frontal central regions with higher amplitude on the left side. This evolved and was then symmetric over both hemispheres. Impression: The findings are consistent with a mild diffuse disturbance in brain function with focal potentially epileptogenic lesions in the right and left frontal central temporal region. One seizure occurred that was clinically a tonic seizure with possible onset in the left frontal central temporal region. ICD-10 Code: R569 Double-stranded DNA (dsDNA) antibodies, Crithidia 2020-04-09 13:15:26 Test Item Value Reference Range Interpretation Comme nts DNA Ab screen (test code = 1297) Not Detected Not-Detected Enrique PiedraUrine [id number] 14:33:04 Test Item Value Reference Range Interpretation Comments Urine culture Mixed prem Specimen isolate (test 03-19 col/cc InformationSpe [facility] code = 77648-7) Source: Urin eSpecimen Site: Clean cat Nunez MethodistRibonucleic antibody (MOLD FORMS BUILDER)2020-04-06 18:25:47 Test Item Value Reference Range Interpretation Comments Ribonucleic antibody <0.2 0.0- 0.9 AI (MOLD FORMS BUILDER) (test code = 40454-6) Ribonucleic antibody Negative AI Anti-ri bonucleic (MOLD FORMS BUILDER) interp (test protein ( anti-MOLD FORMS BUILDER) code = 5267) antibodies are typically found in patients with m ixed connective tiss ue disease, but ca n also be seen in christin ents with systemic l upus erythematosus ( SLE) or systematic scle rosis. Enrique CruzistJo-1 [id number] 18:25:46 Test Item Value Reference Range Interpretation Comments Bernarda-1 antibody (test <0.2 0.0- 0.9 AI code = 15770-0) Bernarda-1 antibody interp Negative Anti-Bernarda -1 antibody is (test code = 5263) predomina ntly found in patients with polymyositis, e specially for those with interstitial pu lmonary fibrosis. It ca n also be found in patien ts with dermatomyositis . Enrique CruzistScl-70 [id number] 18:25:46 Test Item Value Reference Range Interpretation Comments Scleroderma SCL-70 Ab <0.2 0.0- 0.9 AI (test code = 88657-0) Scl-70 antibody interp Negative AI Anti- Scl-70 (test code = 5268) (topoisom erase I) antibodies are found in patients with s ystemic sclerosis (SSc or scleroderma), a nd have been reported t o be predictive of d iffuse cutaneous invol vement. Anti-Scl-70 ant ibodies may also be pre sent in patients with s ystemic lupus erythemat osus (SLE). Nunez MethodistSS-A amezwxxn2425-19-85 18:25:46 Test Item Value Reference Range Interpretation Comments Sjogren's SS-A <0.2 0.0- 0.9 AI antibody (test code = 53445-3) SS-A antibody interp Negative AI SS-A an tibody is (test code = 2235) sensitive for Sjogren's syndrome, but m ay also be positive with s ystemic lupus erythemat osus (SLE), and syst emic sclerosis. [place] MethodistCentromere [id number] 18:25:45 Test Item Value Reference Range Interpretation Comments Centromere antibody <0.2 0.0- 0.9 AI (test code = 8068-9) Centromere antibody Negative AI Anti-sae tromere interp (test code = antibodi es are found 31299-0) in patients wit h systemic sclero sis (SSc or sclerod sb), especially for those with limited cu taneous or CREST syndro me. Anti-centromere antibodies may also be found in patien ts with other rheumatic or connective tiss ue diseases. [place] MethodistSmith tbnyqstc2887-61-58 18:25:45 Test Item Value Reference Range Interpretation Comments Matthew antibody (test <0.2 0.0- 0.9 AI code = 15410-5) Matthew antibody Negative AI Anti-Matthew an tibodies interp (test code = occurs i n 30-35% of 5269) systemic lupus erythematosus ( SLE) cases, but is v gilbert specific for SL E. It may also present in mixed connective-tiss ue disease (MCTD). [place] MethodistSS-B [id number] 18:25:44 Test Item Value Reference Range Interpretation Comments Sjogren's SS-B 0.6 0.0- 0.9 AI antibody (test code = 3001) SS-B antibody interp Negative AI SS-B/La antibody is seen (test code = 2237) in patien ts with Sjogren syndrome, but m ay also be positive with s ystemic lupus erythemat osus (SLE), and syst emic sclerosis. [place] MethodistKeppra (Levetiracetam) fywjl5598-65-27 17:50:04 Test Item Value Reference Interpretation Comments Range Levetiracetam 23 ug/mL 12-46 INTERPRETIVE I NFORMATION: (test code = Keppra 4478-4) (Levetiracetam) Therapeutic Range: 12-46 u g/mL Toxic: Not wel l EstablishedPhar macokinetics of levetiracetam a re affected by renal function. Adverse effects may include andi nolence, weakness, heada justus and vomiting.This l evetiracetam (Keppra) immuno assay uses the [employer] reagents, which has known cross -reactivity with the drug brivar acetam (Briviact) and may report inaccurate resu lts. Patients transitioning f rom levetiracetam t o brivaracetam or those who ar e using both medications alejandra uld not monitor drug concentrat ions with the [employer] assay. These patients should be monitored using a validat ed chromatographic methodology that distinguis hes between drugs to determ ine drug concentrations. Performed By: [facility] [place] [address] [id number] Director: MD Enrique SidhuPresbyterian [facility] ohahcpu1437-09-69 17:38:16 Test Item Value Reference Range Interpretation Comments POC glucose (test code = 102 mg/dL 65-99 H Ope rator Name: [id number]) Gerber Coulter ice ID: [id number] Lab Interpretation (test Abnormal code = 11415-9) Enrique CruzistHomocystine, lxevnq0214-42-19 18:55:23 Test Item Value Reference Range Interpretation Comments Homocysteine (test 6.7 umol/L 0-15 The risk for coronary code = 36774-3) vascular dis ease increases progressively w ith homocysteine concentration. A 3.4 times greater r isk is associated with a homocysteine concentration o f greater than 15.8 umol/L as carlin red to a concentration below 14.1 umol/L. S pecimen is slightly hem olyzed. Interpret resu lts accordingly. Enrique MethodistPotassium [id number] 18:49:08 Test Item Value Reference Range Interpretation Comments Potassium (test code = 2823-3) 3.7 3.5- 5.0 mEq/L Enrique MethodistVitamin D 25 hydroxy minku8462-89-17 15:53:37 Test Item Value Reference Range Interpretation Comments Vitamin D, 25-hydroxy 12.1 ng/mL 30-150 L This a ssay reports (test code = 1988-) the sum of 25-hydroxy vandana min D3 [...] hods. Lab Interpretation Abnormal (test code = 33969-1) Enrique Guzman 12 aldr0012-06-57 13:34:29 Test Item Value Reference Range Interpretation Comments Ventricular rate (test 77 code = 253) Atrial rate (test code 77 = 255) ME interval (test code 154 = 266) QRSD interval (test 82 code = 260) QT interval (test code 378 = 264) QTC interval (test code 427 = 265) P axis 1 (test code = 17 267) QRS axis 1 (test code = 16 268) T wave axis (test code 11 = 270) EKG impression (test Normal sinus code = 273) rhythm-Possible Anterior infarct , age undetermined-Abnormal ECG-In automated comparison with ECG of 12-NOV-2019 21:10,-No significant change was found- Enrique Lou (routine)2020-04-05 11:50:53VIDEO-EEG RECORDING AWAKE & ASLEEP. Date of Service:04/05/20 Patient Name: Heather Hope of : 1990 Attending MD: Jojo Cruz MD Technique: Recordings were obtained using a standard international 10-20 electrode placement supplemented with a single electrocardiogram chest electrode. The recordings were obtained using a reference electrode and reformatted digitally into sequential bipolar and referential montages for review. Indication: 29 y.o. right-handed woman with a PMH significant for epilepsy and depression presented to ED with complains of increased seizurefrequency referred for video- EEG to evaluate for seizures. Findings: Background: The background is co ntinuous, composed of predominantly alpha and theta frequencies, with normal voltages and fair anterior to posterior organization. There is a reactive posterior dominant rhythm of 7-8 Hz. With drowsiness, there is the expected attenuation of the posterior dominant rhythm. During sleep, there is the em ergence of normal sleep architecture including symmetric and well-defined sleep spindles and K complexes noted. Hyperventilation: was performed showing intermittent diffuse theta slowingPhotic stimulation: was performed with no evidence of photic driving Interictal: frequent bursts of sharpened deltawith embedded sharp wave discharges maximal over the right frontotemporal region Impression: This isan abnormal Video-EEG study characterized by 1. Mild diffuse slowing of the background, a non-specific indicator of global cerebral dysfunction. 2. Frequent epileptiform discharges over the right frontotemporal region. No seizures are captured. Jojo Cruz MD ICD-10 Code: G494Bkbqfrc MethodistSyphilis total jirfeqmj0737-00-00 10:02:20 Test Item Value Reference Range Interpretation Comments Syphilis total Non-reactive Non-reactive No serologica l antibody (test evidence of code = 6194) syphilis infect ion. LUIS MIGUEL (test code = Unable to perform LUIS MIGUEL) testing, specimen is _HEMOLYZED___. Recollect requested for __K__ (tests). __[facility] (name/location) notified by ___JT_ (tech ID) at __ 04/05/2020 07:01 __ (date/time). Credit issued.Unable to perform testing, specimen is _HEMOLYZED___. Recollect requested for _HCYT (tests). __[facility] (name/location) notified by ___JT_ (tech ID) at __ 04/05/2020 09:26 __ (date/time). Credit issued. Enrique MethodistRheumatoid ezolfy5586-60-23 09:01:34 Test Item Value Reference Range Interpretation Comments Rheumatoid factor (test <10 0- 13 IU/mL code = 66445-1) LUIS MIGUEL (test code = LUIS MIGUEL) Unable to perform testing, specimen is _HEMOLYZED___. Recollect requested for __K__ (tests). __[facility] (name/location) notified by ___JT_ (tech ID) at __ 04/05/2020 07:01 __ (date/time). Credit issued. Nunez MethodistVitamin B12 afjly0106-41-56 06:58:42 Test Item Value Reference Range Interpretation Comments Vitamin B12 (test 739 pg/mL 211-946 Significan t overlap code = 2132-9) exists betwee n normal and deficiency states.However, most patients with deficiencies wi ll have Serum B12 <2 00 pg/mL. Enrique CruzistFolate yovhf2699-29-13 06:58:42 Test Item Value Reference Range Interpretation Comments Folate (test code = 2284-8) 14.0 ng/mL 4.8-24.2 [place] SabianistBasic metabolic nudtz7273-43-43 06:52:05 Test Item Value Reference Range Interpretation Comments Sodium (test code = 138 135- 148 mEq/L 2951-2) Potassium (test code = Footnote 3.5- 5.0 mEq/L Katt ble to perform 2823-3) testing, specim en is _HEMOLYZED. Recollect reque sted for __K_ (tests ). Chloride (test code = 105 98- 112 mEq/L 2074-0) CO2 (test code = 2027-9) 21 24- 31 mEq/L L Anion gap (test code = 12@ANIO 7- 15 mEq/L 20739-3) BUN (test code = 3094-0) 6 mg/dL 6-20 Creatinine (test code = 0.42 mg/dL 0.5-0.9 L 2160-0) Glucose (test code = 89 mg/dL 65-99 2345-7) Calcium (test code = 9.0 mg/dL 8.3-10.2 96044-5) Lab Interpretation (test Abnormal code = 09533-5) Nunez MethodistMagnesium [id number] 06:52:05 Test Item Value Reference Range Interpretation Comments Magnesium (test code = 89834-1) 1.8 mg/dL 1.6-2.6 Enrique MethodistT4, wbgx9429-30-17 06:52:05 Test Item Value Reference Range Interpretation Comments T4, free (test code = 3024-7) 1.1 ng/dL 0.9-1.7 Enrique PiedraThyroid stimulating umytwjx5716-40-35 06:52:05 Test Item Value Reference Range Interpretation Comments TSH (test code = 3016-3) 1.26 0.27- 4.20 uIU/mL Nunez GalipsksfC86546-08-39 06:52:05 Test Item Value Reference Range Interpretation Comments T3 (test code = 3053-6) 89 ng/dL 80-200 Enrique PiedraC-reactive zuwfzny0831-17-44 06:52:05 Test Item Value Reference Range Interpretation Comments CRP (test code = 1987-) <0.30 0-0.5 Nunez MethodistEstimated [id number] 06:52:05 Test Item Value Reference Range Interpretation Comments Estimated GFR (test >=90 mL/min/1.73 m2 [facility] Units code = 5488) InterpretationG 1 >=90 Normal or highG2 60-89 Mildly vpepavvupS1k 45-59 Mildly to mode rately zdeggfzfvS4t 30-44 Moderately to severely decreasedG4 15-29 Severely decre asedG5 <15 Kidn ey failureThe eGFR was calculated usin g the Chronic Kidney Disease Epidemiology Co llaboration (CKD-EPI) equat ion. Interpretation is based on recommendations of the National Kidney Foundation-Kidn ey Disease Outcomes Qualit y Initiative (NKF-KDOQI) pub lished in 2014. Enrique PiedraHIV Ag/Ab mkskpzzzsfq4065-56-35 06:48:46 Test Item Value Reference Range Interpretation Comments HIV Ag/Ab combination (test code Non-reactive Non-reactive = 5299) Enrique CruzistCBC with platelet and fbwdylllejsp1277-18-01 05:15:46 Test Item Value Reference Range Interpretation Comments WBC (test code = 71857-3) 6.97 4.50- 11.00 k/uL RBC (test code = 11747-6) 4.12 m/uL 4.2-5.5 L HGB (test code = 718-7) 12.1 g/dL 12-16 HCT (test code = 4544-3) 35.6 % 37-47 L MCV (test code = 787-2) 86.4 fL 82-100 MCH (test code = 785-6) 29.4 pg 27-34 MCHC (test code = 786-4) 34.0 g/dL 31-37 RDW - SD (test code = 39.6 fL 37-55 58351-2) MPV (test code = 19093-6) 10.4 fL 8.8-13.2 Platelet count (test code 267 150- 400 k/uL = 41460-3) Nucleated RBC (test code 0.00 /100 WBC = 24330-9) Neutrophils (test code = 49.6 % 39-69 33055-4) Lymphocytes (test code = 39.5 % 25-45 61327-3) Monocytes (test code = 7.2 % 0-10 77054-1) Eosinophils (test code = 2.7 % 0-5 58059-9) Basophils (test code = 0.9 % 0-1 15619-9) Immature granulocytes 0.1 % 0-1 "Immat ure (test code = 86392-3) granul ocytes" (promyelocytes, myelocytes, metamyelocytes) Lab Interpretation (test Abnormal code = 22793-1) Enrique MethodistCOVID-19 qualitative [id number] 04:39:53 Test Item Value Reference Range Interpretation Comments Interpretation (test Negative results do code = 7683117) not preclude 2019-nCoV infection and should not be used as the sole basis for treatment or other patient management decisions. Negative results must be combined with clinical observations, patient history, and epidemiological information. COVID-19 qualitative Not-Detected Not-Detected PCR result (test code = 19794-9) COVID-19 qualitative See link below for C ase Number: PCR (test code = PDF Lab Report [id number]) Enrique MethodistSedimentation smky4612-96-83 22:23:01 Test Item Value Reference Range Interpretation Comments Sedimentation rate (test code = 6 0- 20 mm/hr 19062-5) Enrique MethodistUrinalysis screen and microscopy, with reflex to culture 2020-04-04 21:41:18 Test Item Value Reference Range Interpretation Comments Specimen site (test code = Clean catch 8525671) Color, UA (test code = 5778-6) Dark Yellow Appearance, UA (test code = Cloudy 5767-9) Specific gravity, UA (test code = 1.028 1.001-1.035 5811-5) pH, UA (test code = 5803-2) 6.0 5.0-8.5 Protein, UA (test code = 08490-5) 1+ Negative A Glucose, UA (test code = 57891-1) Negative Negative Ketones, UA (test code = 2514-8) Negative Negative Bilirubin, UA (test code = Negative Negative 5770-3) Blood, UA (test code = 5794-3) Negative Negative Nitrite, UA (test code = 5802-4) Negative Negative Urobilinogen, UA (test code = 4.0 <2.0 A 90194-7) Leukocyte esterase, UA (test code Moderate Negative A = 5799-2) Epithelial cells, UA (test code = >20 /HPF 5787-7) WBC, UA (test code = 5821-4) 22 0- 4 /HPF H RBC, UA (test code = 34359-4) <1 0- 5 /HPF Bacteria, UA (test code = Few None seen 19575-3) Yeast, UA (test code = 10050-4) None seen Yeast with pseudohyphae, UA (test None seen code = 58093-3) Lab Interpretation (test code = Abnormal 01837-5) Enrique Bowman drugs of abuse nzscdk8550-37-00 21:28:59 Test Item Value Reference Interpretation Comments Range Amphetamine screen, Negative urine (test code = 3349-8) Barbiturate screen, Negative urine (test code = 3377-9) Benzodiazepine Positive A screen, urine (test code = 3390-2) Cocaine screen, Negative urine (test code = 3397-7) Methadone Negative metabolite (EDDP), urine (test code = 93809-0) Opiates screen, Negative urine (test code = 9789-4) Oxycodone screen, Negative urine (test code = 08464-8) Phencyclidine Negative screen, urine (test code = 3936-2) Tricyclic screen, Negative urine (test code = 15396-0) Cannabinoid screen, Negative Drug scr een minimum [...] if d efinitive testing is requ ired. Lab Interpretation Abnormal (test code = 70055-5) [place] MethodistComprehensive metabolic agigt2046-52-64 21:27:39 Test Item Value Reference Range Interpretation Comments Sodium (test code = 138 135- 148 mEq/L 2951-2) Potassium (test code = 3.6 3.5- 5.0 mEq/L 2823-3) Chloride (test code = 105 98- 112 mEq/L 5-0) CO2 (test code = 2027-9) 22 24- 31 mEq/L L Anion gap (test code = 11@ANIO 7- 15 mEq/L 65083-4) BUN (test code = 3094-0) 7 mg/dL 6-20 Creatinine (test code = 0.46 mg/dL 0.5-0.9 L 2160-0) Glucose (test code = 96 mg/dL 65-99 2345-7) Calcium (test code = 9.2 mg/dL 8.3-10.2 35154-2) Protein (test code = 7.1 g/dL 6.3-8.3 -[place] n 2885-2) 4.6-7.0 g/dL1 week 4.4-7 .6 g/dL7 months-1y ear 5.1-7 .3 g/dL1-2 years 5.6-7 .5 g/dL>3 years 6.0-8 .0 g/hB87-519 6.3-8 .3 g/dL Albumin (test code = 3.8 g/dL 3.5-5 1751-7) A/G ratio (test code = 1.2 0.7-3.8 1759-0) Alkaline phosphatase 64 U/L 35-104 (test code = 6768-6) AST (test code = 1920-8) 20 U/L 10-35 ALT (test code = 1742-6) 14 U/L 5-50 Total bilirubin (test 0.4 mg/dL 0-1.2 code = 1975-2) Lab Interpretation (test Abnormal code = 61514-7) [place] MethodistLactic acid level, SEPSIS - Now and repeat 2x every 3 hours 2020-04-04 21:27:38 Test Item Value Reference Range Interpretation Comments Lactic acid (test code = 56165-0) 1.1 mmol/L 0.5-2.2 [place] MethodistPhosphorus [id number] 21:27:37 Test Item Value Reference Range Interpretation Comments Phosphorus (test code = 2777-1) 3.7 mg/dL 2.4-4.5 [place] MethodistCT Head Wo Ssengznc9303-86-36 21:22:41Hm Interface, Radiology Results 04/04/2020 9:25 PM CDTEXAMINATION: CT HEAD WO CONTRASTCL INICAL HISTORY: fall traumaCOMPARISON: MRI of the brain dated March 27, 2020FINDINGS: There is no evidence of acute hemorrhage, mass lesion, or midline shift. The edmondson-white matter differentiationis preserved with no evidence of acute territorial infarction. Ventricles, sulci, and cisterns are age- appropriate in size and configuration. There is no extra-axial fluid collection.Visualized paranasal sinuses and mastoid air cells are clear. Bones, orbits, and soft tissues are unremarkable.All CT images were acquired using low- dose technique with automated exposure control.IMPRESSION: UnremarkableCT of the head with no evidence of acute intracranial hemorrhage or mass effect.RM-CGAAXDZ8OhwexsfCovenant Children's Hospital avqpisdc6435-20-65 21:21:43 Test Item Value Reference Range Interpretation Comments WBC (test code = 69450-7) 7.66 4.50- 11.00 k/uL RBC (test code = 76471-8) 4.23 m/uL 4.2-5.5 HGB (test code = 718-7) 12.2 g/dL 12-16 HCT (test code = 4544-3) 36.8 % 37-47 L MCV (test code = 787-2) 87.0 fL 82-100 MCH (test code = 785-6) 28.8 pg 27-34 MCHC (test code = 786-4) 33.2 g/dL 31-37 RDW - SD (test code = 73487-7) 40.3 fL 37-55 MPV (test code = 88320-4) 10.1 fL 8.8-13.2 Platelet count (test code = 247 150- 400 k/uL 85543-2) Nucleated RBC (test code = 0.00 /100 WBC 39065-0) Lab Interpretation (test code = Abnormal 89491-9) [place] MethodistProlactin [id number] 21:11:11 Test Item Value Reference Range Interpretation Comments Prolactin (test code = 2842-3) 13 ng/mL 5-23 [place] MethodistCRITICAL [id number] 18:48:10BMax gleason MD 04/20/2020 3:37 PMCritical CarePerformed by: Lila ByersAuthorized by: Max Ron MD Critical care provider statement: Critical care time (minutes): 20 Critical care was necessary to treat or prevent imminent or life- threatening deterioration of the following conditions: [employer] failure or compromise Critical care was time spent personally by me on the following a ctivities: Blood draw for specimens, development of treatment plan with patient or surrogate, discussions with consultants, discussions with primary provider, evaluation of patient's response to treatment, examination of patient, review of old charts, re-evaluation of patient's condition, pulse oximetry, ordering and review of radiographic studies, ordering and review of laboratory studies and ordering and performing treatments and interventions Vlad 'yes' if you are taking over critical care for this patient from another provider.: Hawa Dalton Brain Metabolic Qjml5995-53-12 14:42:07Hm Interface, Radiology Results - 03/30/2020 2:45 PM CDTPROCEDURE: PET BRAIN METABOLIC EVAL INDICATION: R56.9 Unspecified convulsions, SeizuresCOMPARISON: MRI brain 03/27/2020 TECHNIQUE: Bloodglucose measured at the time of injection was 86 mg/dL. The patient was injected IV with 8 mCi of 18F-FDG. Approximately one hour later, PET images of the brain were obtained. Corresponding low dose CTscanning was performed as part of the attenuation correction process. FINDINGS: There is mild hypometabolism in the bilateral mesial temporal lobes marginally more pronounced on the right. Remainingbilateral cerebral hemispheres demonstrate preserved cortical edmondson matter metabolism. Subcortical structures demonstrate normal metabolic activity. There is diffusely reduced cerebellar metabolism. IMPRESSION: 1.Mild hypometabolism in the bilateral mesial temporal lobes is equivocal for epileptogenic foci in a presumed interictal study.2.Diffuse cerebellar hypometabolism suggests a pharmacologic effect.[facility]-[id number] MethodistContinuous EEG skhuaavddc4258-77-16 17:34:53CONTINUOUS VIDEO-EEG MONITORING REPORT Patient Name: Heather [...] No seizures occurred. ICD-10 Code: R56.9[place] MethodistANA dvcxr4236-64-06 13:12:21 Test Item Value Reference Range Interpretation Comments MARCELINO titer (test code = 23395-9) 1:160 Not-Detected A MARCELINO pattern (test code = 82849-0) Homogeneous Not-Detected A Lab Interpretation (test code = Abnormal 48609-7) [place] VvkhvgzdsLYK0814-33-04 13:08:33 Test Item Value Reference Range Interpretation Comments MARCELINO screen (test code Positive Negative A Test p erformed using = 550) NOVA Meltye DAPI MARCELINO kit (Indirect Immunofluoresce nce Assay) for Anti -Nuclear Antibody on [employer]-Lyser 16 0 Analyzer. Lab Interpretation Abnormal (test code = 87813-9) Nunez MethodistManual ihoaxwkroytg0459-03-15 08:57:11 Test Item Value Reference Range Interpretation Comments Manual differential (test code = PERFORMED 24940-2) Neutrophils (test code = 51.0 % 39-69 60541-3) Lymphocytes (test code = 34.0 % 25-45 66542-9) Monocytes (test code = 95373-1) 13.0 % 0-10 H Eosinophils (test code = 2.0 % 0-5 33941-2) Basophils (test code = 15374-6) 0.0 % 0-1 Metamyelocytes (test code = 0 % 740-1) Promyelocytes (test code = 0 % 783-1) Platelet slide review (test code Sana adequate = 44888-9) Anisocytosis (test code = 702-1) Moderate Ovalocytes (test code = 774-0) Moderate Enlarged platelets (test code = Moderate A 58949-0) Lab Interpretation (test code = Abnormal 82447-4) [place] MethodistContinuous EEG rrvvbllugm6416-92-46 07:42:19CONTINUOUS VIDEO- EEG MONITORING REPORT Patient Name: [...] independently. No seizures occurred. ICD-10 Code: R56.9[place] Sabianist Continuous EEG qznxgccvqa3983-92-65 07:19:24 CONTINUOUS VIDEO-EEG MONITORING REPORT Patient Name: Haether Hope Date of : 1990 Gender: female [...] regions independently. No seizures occurred. ICD-10 Code: R56.9[facility] MethodistEEG (routine) - Baseline QSD9281-42-91 06:43:32EEG RECORDING AWAKE & ASLEEP - Baseline [...] the right and left frontal temporal regions independently. No seizures occurred. ICD-10 Code: R56.9 Shahzad Childers, Clinical Neurophysiology I reviewed the entire EEG and agree with the above findings. Toya Rojo MethodistFerritin uyoip4331-31-61 07:54:01 Test Item Value Reference Range Interpretation Comments Ferritin level (test code = 2276-4) <13 13-150 A Lab Interpretation (test code = Abnormal 56013-4) Enrique MethodistTotal iron binding cigzkgtn7982-03-76 07:50:12 Test Item Value Reference Range Interpretation Comments Iron level (test code = 2498-4) 20 ug/dL 37-145 L Iron binding capacity (test code = 335 ug/dL 790-457 5601-7) % Saturation (test code = 2502-3) 6.0 % 15-38 L Lab Interpretation (test code = Abnormal 42803-2) Enrique MethodistCortisol level, tcgwyh4910-00-20 20:48:37 Test Item Value Reference Range Interpretation Comments Cortisol, random 2 ug/dL Reference R anges are not (test code = 2143-6) establi shed for non-timed Cortisol levels .Reference Range for Timed Cortisol: 6 - 10 AM 6 - 18 ug/dl 4 - 8 PM 3 - 11 ug/ dl [facility], total (CPK)2019-11-12 20:42:35 Test Item Value Reference Range Interpretation Comments Creatine kinase (test code = 2157-6) 56 U/L 26-192 [place] MethodistCT Cervical Spine Wo Voatbmoy4687-52-63 18:17:20Hm Interface, Radiology Results 11/12/2019 6:20 PM [...] fracture or subluxation identified in the cervical spine.[facility]-4OW3141M32Srcdsef MethodistCT Maxillofacial Wo Jzgzshqk8409-84-00 18:15:46Hm Interface, Radiology Results 11/12/2019 6:18 PM CDTEXAMINATION: CT MAXILLOFACIAL WO CONTRASTCLINICAL HISTORY: Facial trauma fx suspectedCOMPARISON: NoneTECHNIQUE: Axial noncontrast enhanced images through the maxillofacial bones were obtained with bone and soft tissue algorithms. Barbaar nal and sagittal reconstructions were also performed. CT imaging was performed with iterative reconstruction techniques and/or automated exposure control to reduce radiation dose.IMPRESSION:There is soft tissue swelling over the left zygoma and left maxilla.No fractures identified.Postseptal orbital soft tissues are unremarkable.The paranasal sinuses are clear.[facility]-9ZG92816HFDkglwcc Sabianist Alcohol level, ncacl1784-17-60 18:06:03 Test Item Value Reference Range Interpretation Comments Alcohol percent None Detected % Normal (test code = None Detec tedLegal 5643-2) Intoxication in [place] 80 mg/dL (0.08% ) - Whole BloodToxi c Concentration 200 mg/dL (0.2%)Potential ly Fatal 350 - 500 mg/dL (0.35 - 0 .5%) Enrique MethodistXR Chest 1 Vw Sicprlsy0661-27-93 17:37:03Hm Interface, Radiology Results 11/12/2019 5:40 PM CDTEXAMINATION: XR CHEST 1 VW PORTABLECLINICAL HISTORY: SOBXR CHEST 1 VW PORTABLE images are submittedCOMPARISON: NONEFINDINGS:The cardiac silhouette is normal in size. The pulmonary vasculature is within normal limits. The lung zones have no focal area of consolidation. There is no pleural effusion or pneumothorax.IMPRESSION:1. Thereis no acute cardiopulmonary disease.STJO-2BZ9344BNILipwiiu MethodisthCG qualitative, urine lstsww7828-61-97 15:26:18 Test Item Value Reference Range Interpretation Comments hCG qualitative, Negative Sensitivity of HCG test: urine (test code = 25 mIU/mL 2106-3) [place] MethodistRPR Qzrxmjgvjfv5151-27-66 16:47:08 Test Item Value Reference Range Interpretation [...] = 06-14-2020 N Expiration Dt) Thyroid Stimulating Zynjnwe2296-97-61 06:31:44 Test Item Value Reference Range Interpretation Comments TSH (test code = TSH) 3.830 mIU/mL 0.270-4.200 Lipid Ftqcu6297-35-16 06:24:40 Test Item Value Reference Range Interpretation Comments Cholesterol Total 152 mg/dL 0-200 RISK OF HE ART (test code = DISEASEPublishe d by Cholesterol Total) [employer] [employer] Marcelino lyte Optimal Borderl ine [...] LDL/HDL Ratio=L DL Calc/HDL Chol Urine Drug Dknwaz5861-75-91 21:53:06 Test Item Value Reference Range Interpretation [...] if desired . Urinalysis with Culture, if zdequwzxd9043-34-38 21:40:53 Test Item Value Reference Range Interpretation [...] Indicated Not Indicated Micro Ind?) Comprehensive Metabolic Zohep6994-51-88 21:34:15 Test Item Value Reference Range Interpretation [...] = A/G 1.6 ratio N Ratio) Alcohol Bzofb4462-30-97 21:34:15 Test Item Value Reference Range Interpretation Comments Ethanol Level (test <0.00 g/dL 0.00-0.01 Intoxica vandana 0.080 g/dL code = Ethanol or more Level) Ethanol Inst (test <0 N code = Ethanol Inst) Comprehensive Metabolic Nyfxx6386-93-61 21:34:15 Test Item Value Reference Range Interpretation [...] National Kidney Foundation, http://nkdep.ni h.gov Comprehensive Metabolic Rkhdd6636-18-48 21:34:15 Test Item Value Reference Range Interpretation [...] ag e have not been validated by [facility] MDRD study and should be interpreted wit [...] ag e have not been validated by [facility] MDRD study and should be interpreted wit h caution. eGFR R esult Interpretation: eGFR > or = 60 is in the Normal RangeeGF R < 60 may mean kid shannan diseaseeGFR < 1 5 may mean kidney failure Rang es recommended by the National Kidney Foundation, http://nkdep.ni h.gov Complete Blood Count with Jlmmabjtijht6282-44-94 21:15:24 Test Item Value Reference Range Interpretation [...] code = IPF) 0 % N Automated Adpuuhycxyys9025-09-72 21:15:24 Test Item Value Reference Range Interpretation Comments Neutro Auto (test code = Neutro 54.3 % 36.0-70.0 Auto) Lymph Auto (test code = Lymph Auto) 32.3 % 12.0-44.0 Garden Auto (test code = Garden Auto) 11.1 % 0.0-11.0 H Eos, Auto (test code = Eos, Auto) 1.3 % 0.0-7.0 Basophil Auto (test code = Basophil 0.7 % 0.0-2.0 Auto) Neutro Absolute (test code = Neutro 6.2 x10 1.6-7.4 Absolute) Lymph Absolute (test code = Lymph 3.71 x10 .50-4.60 Absolute) Garden Absolute (test code = Garden 1.28 x10 .00-1.20 H Absolute) Eos Absolute (test code = Eos 0.15 x10 0.00-0.74 Absolute) Baso Absolute (test code = Baso 0.08 x10 0.00-0.21 Absolute) IG Qckte0064-99-01 21:15:24 Test Item Value Reference Range Interpretation Comments IG (test code = IG) 0.3 % 0.0-5.0 IG Abs (test code = IG Abs) 0 x10 N HCG Qualitative Yoisk9681-50-94 20:45:17 Test Item Value Reference Range Interpretation [...] 72 hours. Lot # (test code = [id number] N Lot #) Expiration Dt (test 2020-12-12 N code = Expiration Dt) Neg Control (test Negative code = Neg Control) Pos Control (test Positive code = Pos Control) Internal QC (test Acceptable code = Internal QC) RPR Ovxtixouzwv5714-14-12 12:07:58 Test Item Value Reference Range Interpretation [...] = 04-14-2020 N Expiration Dt) Thyroid Stimulating Diwpqla1164-55-08 07:59:52 Test Item Value Reference Range Interpretation Comments TSH (test code = TSH) 0.717 mIU/mL 0.270-4.200 Lipid Ntzao6749-27-89 07:52:46 Test Item Value Reference Range Interpretation Comments Cholesterol Total 141 mg/dL 0-200 RISK OF HE ART (test code = DISEASEPublishe d by Cholesterol Total) [employer] Marcelino lyte Optimal Borderl ine [...] LDL/HDL Ratio=L DL Calc/HDL Chol Urine Drug Jdjyuu7468-40-94 15:27:40 Test Item Value Reference Range Interpretation [...] matory test if desired . Comprehensive Metabolic Hnero4098-22-17 15:15:20 Test Item Value Reference Range Interpretation [...] A/G 1.9 ratio N Ratio) Comprehensive Metabolic Nttme8138-54-05 15:15:20 Test Item Value Reference Range Interpretation [...] the National Kidney Foundation, http://nkdep.ni h.gov Alcohol Irguy5114-59-04 15:15:20 Test Item Value Reference Range Interpretation Comments Ethanol Level (test <0.00 g/dL 0.00-0.01 Intoxica vandana 0.080 g/dL code = Ethanol or more Level) Ethanol Inst (test <0 N code = Ethanol Inst) Comprehensive Metabolic Hlshz7758-94-29 15:15:20 Test Item Value Reference Range Interpretation [...] RangeeGF R < 60 may mean kid shannna diseaseeGFR < 1 5 may mean kidney [...] the National Kidney Foundation, http://nkdep.ni h.gov Urinalysis Fmgubqsyfnh1914-31-55 15:11:20 Test Item Value Reference Range Interpretation Comments UA WBC (test code = UA WBC) 6-10 0-5 A UA RBC (test code = UA RBC) 0-5 0-5 UA Bacteria (test code = UA Moderate A Bacteria) UA Squam Epithelial (test code = UA TNTC A Squam Epithelial) UA Mucous (test code = UA Mucous) Few A Urinalysis with Microscopic if hoywmciwe6959-06-88 14:42:58 Test Item Value Reference Range Interpretation [...] GL_SJM_UA_MICRO _IN D Complete Blood Count with Btqzgwpfmudb4542-37-83 14:37:26 Test Item Value Reference Range Interpretation [...] code = IPF) 0 % N Automated Hbflvvclijkk3532-38-22 14:37:26 Test Item Value Reference Range Interpretation Comments Neutro Auto (test code = Neutro 65.8 % 36.0-70.0 Auto) Lymph Auto (test code = Lymph Auto) 25.5 % 12.0-44.0 Garden Auto (test code = Garden Auto) 7.3 % 0.0-11.0 Eos, Auto (test code = Eos, Auto) 0.7 % 0.0-7.0 Basophil Auto (test code = Basophil 0.5 % 0.0-2.0 Auto) Neutro Absolute (test code = Neutro 6.0 x10 1.6-7.4 Absolute) Lymph Absolute (test code = Lymph 2.34 x10 .50-4.60 Absolute) Garden Absolute (test code = Garden .67 x10 .00-1.20 Absolute) Eos Absolute (test code = Eos 0.06 x10 0.00-0.74 Absolute) Baso Absolute (test code = Baso 0.05 x10 0.00-0.21 Absolute) IG Mqdkr1586-77-04 14:37:26 Test Item Value Reference Range Interpretation Comments IG (test code = IG) 0.2 % 0.0-5.0 IG Abs (test code = IG Abs) 0 x10 N HCG Qualitative Cpeyp4492-84-47 14:34:08 Test Item Value Reference Range Interpretation [...] 72 hours. Lot # (test code = [id number] N Lot #) Expiration Dt (test 2020-03-14 N code = Expiration Dt) Neg Control (test Negative code = Neg Control) Pos Control (test Positive code = Pos Control) Internal QC (test Acceptable code = Internal QC) DRUGS OF ABUSE SCREEN [id number] 17:11:00 Test Item Value Reference Range Interpretation [...] = [place]) concentrati on: 300 ng/mL URINALYSIS [id number] 17:08:00 Test Item Value Reference Range Interpretation [...] (test code = MOD NONE BACU) URINALYSIS [id number] 17:00:00 Test Item Value Reference Range Interpretation [...] (test code = NONE BACU) HCG SERUM [id number] 16:52:00 Test Item Value Reference Range Interpretation Comments HCG SERUM QUAL (test code = HCGQL) NEGATIVE NEGATIVE - CT HEAD/BRAIN W/O [id number] 16:51:00 FAX: Theresa Fields MD [place]: St: REG Name: HEATHER HOPE [facility] : 1990 Age/S: 28/F [address] [facility] Unit: [id number] [place]: [place] [address] Acct: [id number] Dis Date: Status: REG ER PHONE #: [phone] Exam Date: 02/23/2019 1642 FAX #: [phone] Reason: SEIZURE EXAMS: CPT CODE: [id number] CT HEAD/BRAIN W/O CONT 92657 Dictation location: U19. CT HEAD WITHOUT CONTRAST. [...] MD Technologist: HEATHER DICKSON Trnscrd Dt/Tm: 02/23/2019 (1591) AngeliqueSP17 Orig Print D/T: S: 02/23/2019 (4924 PAGE 1 Signed ReportBASIC METABOLIC [id number] 16:31:00 Test Item Value Reference Range Interpretation [...] CA) 8.8 mg/dl 8.0-10.5 N BASIC METABOLIC [id number] 16:26:00 Test Item Value Reference Range Interpretation [...] code = CA) mg/dl 8.0-10.5 CBC W/AUTO [id number] 16:15:00 Test Item Value Reference Range Interpretation [...] 3-60 N code = VLDL) RAPID PLASMA [id number] 10:31:00 Test Item Value Reference Range Interpretation Comments RAPID PLASMA REAGIN (test code = Nonreactive Nonreactive RPR) GLYCOSYLATED HEMOGLOBIN (HA1C)2018-12-07 10:05:00 Test Item Value Reference Range Interpretation Comments GLYCOSYLATED HEMOGLOBIN (HA1C) 5.8 % TOT HB 4.5-6.2 N (test code = GLYHGB) [id number] 15:31:00 Test Item Value Reference Range Interpretation Comments ACETAMINOPHEN (test < 1 MCG/ML 10-30 L Acetamin ophen is code = ACET) possibly toxic at levels of: 1. m ore than 150 MCG/ML 4 hours post kaylin stion. 2. more than 5 0 MCG/ML 12 hours post ingestion. [id number] 15:31:00 Test Item Value Reference Range Interpretation Comments SALICYLATE (test code = < 3 MG/DL 0-20 N Refe rence Range: BOSSMAN) Analgesic...... ...... ...... < 10 mg /dl Therapeutic.... ...... ...... 15-20 mg /dl Mild Toxicity....... ...... . > 30 mg/dl Severe Toxicity....... ..... > 60 mg/dl UA RFLX [id number] 14:18:00 Test Item Value Reference Range Interpretation [...] NITRITE DIPSTICK (test NEGATIVE NEGATIVE code = KITE) UA LEUKOCYTE ESTERASE NEGATIVE NEGATIVE DIPSTICK (test code = LEUU) UA COMMENT (test code = COMU) VOLUME 10-12 ML URINE SPECIMEN DESCRIPTION Clean Catch (test code = UASPEC) UA [id number] 14:18:00 Test Item Value Reference Range Interpretation Comments UA WBC (test code = WBCU) < 10 #/hpf <10 UA RBC (test code = RBCU) 0-2 #/hpf NONE SEEN A UA BACTERIA (test code = BACU) RARE #/hpf NONE SEEN UA SQUAMOUS CELLS (test code = 0 - 20 #/lpf <100 SQU) UA MUCUS (test code = MUCU) 1+ #/lpf NONE SEEN BASIC METABOLIC [id number] 14:16:00 Test Item Value Reference Range Interpretation [...] 9.4 MG/DL 8.7-10.5 N CA) HEPATIC FUNCTION [id number] 14:16:00 Test Item Value Reference Range Interpretation [...] 50-136 N TOTAL (test code = ALKP) [id number] 14:16:00 Test Item Value Reference Range Interpretation Comments CK (test code = CKT) 87 Units/L 26-192 N [id number] 14:16:00 Test Item Value Reference Range Interpretation Comments ALCOHOL (test code = < 3 MG/DL 0-10 N 0 - 10: Should be ALC) interpreted as NEGATIVE. 11 - 50: None to mild euphoria. 51 - 100: Mild influence on vision and dark adapta tion. > 80: Legal intoxication; D epression of [employer]; Increasing degr ee of poisoning. > 400: Fatalities repo rted. Results are for medical purposes only a nd not forlegal or emp loyment evaluative purp oses. BASIC METABOLIC [id number] 14:09:00 Test Item Value Reference Range Interpretation [...] 9.4 MG/DL 8.7-10.5 N CA) HEPATIC FUNCTION [id number] 14:09:00 Test Item Value Reference Range Interpretation [...] TOTAL (test Units/L 50-136 code = ALKP) [id number] 14:09:00 Test Item Value Reference Range Interpretation Comments CK (test code = CKT) Units/L 26-192 [id number] 14:09:00 Test Item Value Reference Range Interpretation Comments ALCOHOL (test code = ALC) MG/DL 0-10 LACTIC ACID [id number] 13:50:00 Test Item Value Reference Range Interpretation Comments LACTIC ACID POC 0.97 MMOL/L 0.90-1.70 N Performed by certified (test code = LACTP) drying machine operator at [facility] [id number] 13:48:00 Test Item Value Reference Range Interpretation Comments GLUBED (test code = 88 MG/DL 65-99 N Performe d by certified GLUBED) drying machine operator at [facility] DRUG OF ABUSE SCREEN [id number] 13:43:00 Test Item Value Reference Interpretation Comments [...] by layton rader methods (i.e., GC/MS) at [facility]. Results of scre en may not be usedin crimi nal justice, job performance or professionalcre dential review, or infa nt custody issues. Negativ e [place] Level ng/ml ------- ----- Cocaine 300 Methamp hetamine (Ecstacy) 500 Cannabinoids (THC) 50 Amphetamine 1000 Barbiturate s 200 Benzodia zepines 200 Opiat es 300 Ph encyclidine (PCP) 25 UR HCG [id number] 13:39:00 Test Item Value Reference Range Interpretation [...] using aquantitative h CG assay. UA RFLX [id number] 13:38:00 Test Item Value Reference Range Interpretation [...] Clean Catch (test code = UASPEC) UA [id number] 13:38:00 Test Item Value Reference Range Interpretation Comments UA WBC (test code = WBCU) #/hpf <10 UA RBC (test code = RBCU) #/hpf NONE SEEN UA SQUAMOUS CELLS (test code = SQU) #/lpf <100 UA RFLX [id number] 13:38:00 Test Item Value Reference Range Interpretation [...] Clean Catch (test code = UASPEC) UA [id number] 13:38:00 Test Item Value Reference Range Interpretation Comments UA WBC (test code = WBCU) #/hpf <10 UA RBC (test code = RBCU) #/hpf NONE SEEN UA SQUAMOUS CELLS (test code = SQU) #/lpf <100 CBC W/AUTO [id number] 13:26:00 Test Item Value Reference Range Interpretation [...] = BA#) 0.05 x10 3/uL 0.0-0.2 N [id number] 19:07:00 Test Item Value Reference Interpretation Comments Range LEVETIRACETAM 28.7 ug/mL 10.0-40.0 This test was developed and (test code = its performance LEVTAM) characteristics determined by [employer]. It has not been cleared orappro froylan by the Food and Drug Administration. Performed At: [facility] [place], [place] [id number] ra Larissa MENDOZA Ph:[phone] BASIC METABOLIC [id number] 04:58:00 Test Item Value Reference Range Interpretation [...] code = 8.9 MG/DL 8.7-10.5 N CA) [id number] 04:58:00 Test Item Value Reference Range Interpretation Comments MAGNESIUM (test code = MAG) 1.9 MG/DL 1.8-2.4 N CBC W/AUTO [id number] 04:08:00 Test Item Value Reference Range Interpretation [...] 0.0-0.2 N NRBC#) - MRI BRAIN W/O [id number] 13:51:00 Patient Name: HEATHER HOPE NOVEMBER Unit No: [id number] EXAMS: CPT CODE: [id number] MRI BRAIN W/O CONTRAST 81207 Reason: sz INDICATION: Seizure COMPARISON: CT brain, [...] until the patient can hold still. at 1358 Reported and signed by: Lashell Anderson MD CC: Fanny Knowles DO; Jacob Gutierrez MD Technologist: Andre Self MRI Trscrpt Dt/ (3285)AngeliqueDW6 Orig Print D/T: S: 09/17/2018 (3578) [facility] CntNAME: HEATHER HOPE NOVEMBER [address] PHYS: [place] [address] : 1990 AGE: 27 SEX: F LOC: D.D313 1 PHONE #: [phone] EXAM DATE: 09/17/2018 STATUS: ADM IN FAX #: RAD NO: DC Dt: PAGE 1 Signed [id number] 07:25:00 Test Item Value Reference Range Interpretation Comments PROLACTIN (test code = 24.6 ng/mL 4.8-23.3 H Perfo rmed At: HD PROLAC) [facility] [id number] Sb Man MD Ph:[phone] UA RFLX MICROSCOPIC [id number] 19:02:00 Test Item Value Reference Range Interpretation [...] UACULT) URINE SOURCE: Clean CatchUA RFLX MICROSCOPIC [id number] 18:56:00 Test Item Value Reference Range Interpretation [...] (test code = UACULT) URINE SOURCE: Clean [id number] 15:56:00 Test Item Value Reference Range Interpretation Comments CK (test code = CKT) 34 Units/L 26-192 N BASIC METABOLIC [id number] 12:57:00 Test Item Value Reference Range Interpretation [...] code = 8.6 MG/DL 8.7-10.5 L CA) [id number] 12:57:00 Test Item Value Reference Range Interpretation Comments CK (test code = CKT) 32 Units/L 26-192 N CBC W/AUTO [id number] 12:33:00 Test Item Value Reference Range Interpretation [...] 3/uL 0.0-0.2 N NRBC#) TOTAL IRON BINDING [id number] 05:50:00 Test Item Value Reference Range Interpretation Comments SERUM IRON (test code = IRON) 17 MCG/DL 50-170 L TOTAL IRON BINDING CAPACITY (test 363 MCG/DL 280-400 N code = TIBC) IRON SATURATION (test code = 5 % 15-50 L FESAT) [id number] 05:50:00 Test Item Value Reference Range Interpretation Comments FERRITIN (test code = LULI) 11 NG/ML 3-105 N HEPATIC FUNCTION [id number] 05:32:00 Test Item Value Reference Range Interpretation [...] code = ALKP) - CT HEAD/BRAIN W/O [id number] 20:19:00 Patient Name: HEATHER HOPE Unit No: [id number] EXAMS: CPT CODE: [id number] CT HEAD/BRAIN W/O CONT 86091 Reason: seizure TECHNIQUE: Contiguous 5 mm images [...] Print D/T: S: 09/14/2018 (2021) CTDI: DLP: [facility] NAME: HEATHER HOPE [address] PHYS: NGA. - [place] [address] : 1990 AGE: 27 SEX: F LOC: MATT PHONE#: [phone] EXAM DATE: 09/14/2018 STATUS: REG ER FAX #: RAD NO: DC Dt: PAGE 1 Signed Report- XR CHEST 1 [id number] 20:18:00 Patient Name: HEATHER HOPE [facility] Unit No: [id number] EXAMS: CPT CODE: [id number] XR CHEST 1 V 03718 Reason: screen for pneumonia FINDINGS: Single view ofthe chest shows normal heart size and pulmonary vasculature. The lungs are clear bilaterally. There is no focal infiltrate, pleural effusion or pneumothorax. IMPRESSION: No a cute cardiopulmonary findings at 2018 Reported and signed by: Lsahell Jimenez MD CC: Keanu Vázquez MD; Cristiane Heath Technologist: Edel Cade CT Trscrpt Dt/ (2017)Tristan Orig PrintD/T: S: 09/14/2018 (2020) [facility] NAME: HEATHER HOPE [address] PHYS: NGA. [place] [address] : 1990 AGE: 27 SEX: F LOC: DVipinNER PHONE #: [phone] EXAM DATE: STATUS: REG ER FAX #: RAD NO: DC Dt: PAGE 1 Signed ReportHCG SERUM [id number] 20:04:00 Test Item Value Reference Range Interpretation [...] using aquantitative h CG assay. BASIC METABOLIC [id number] 19:51:00 Test Item Value Reference Range Interpretation [...] 9.3 MG/DL 8.7-10.5 N CA) CBC W/AUTO [id number] 19:46:00 Test Item Value Reference Range Interpretation [...] BA#) 0.05 x10 3/uL 0.0-0.2 N BLOOD [id number] 10:00:00 Test Item Value Reference Range Interpretation Comments CULTURE (BEAKER) (test No growth in 5 days code = 1095) HCG, QUANTITATIVE, [id number] 15:37:00 Test Item Value Reference Range Interpretation Comments GONADOTROPIN, CHORIONIC (HCG) 37699 mIU/mL 0-10 H QUANT (BEAKER) (test code = 649) Non- Females: <10 mIU/mL Females: Gestation Age Reference Range(mIU/mL) 0.2-1 Week 5-50 1-2 Weeks 50-500 2-3 Weeks 100-5,000 3-4Weeks 500-10,000 4-5 Weeks 1,000-50,000 5-6 Weeks 10,000-100,000 6-8 Weeks 15,000-200,000 2-3 Months 10,000-100,000COMPREHENSIVE METABOLIC [id number] 15:10:00 Test Item Value Reference Range Interpretation [...] PATIEN TS. CBC W/PLT COUNT & AUTO [id number] 14:53:00 Test Item Value Reference Range Interpretation [...] (test code = 2801) U/S, , FIRST [id number] 07:52:00Reason for exam:-> Reason for exam:->please include [...] 1 day. An embryonic pole is evident. [place]-rump length measures 0.63 cm, correlating with estimated [...] MDReport Verified Date/Time: 05/17/2017 07:52:37 Reading Location: [address] Consult Reading Room PREGNANCY SCREEN, [id number] 05:28:00 Test Item Value Reference Range Interpretation Comments TEST URINE (BEAKER) (test Positive code = 583) MR, BRAIN, WITHOUT [id number] 18:54:00Reason for exam:->Stroke evaluationFINAL REPORT MRI brain [...] Parra Verified Date/Time: 05/15/2017 18:54:11 Reading Location: [facility] Radiology Reading Room EEG AWAKE AND [id number] 12:08:00Reason for exam:->? nonconvulsive statusDATE OF TEST: 05/15/2017DATE OF REPORT 05/15/2017 ACC: [id number] EE Start time: 1034 Stop time: 1054 ICD-10: R56.9CPT Code: 35622HDNRASK: 26 y/o woman with epilepsy found down [...] recordings.Marika Smith M.D.Neurophysiology FellowSwathi Harper M.D.Neurophysiology Attending [id number] 04:27:00 Test Item Value Reference Range Interpretation Comments PROCALCITONIN (BEAKER) (test code 0.17 ng/mL <0.05 H = 3036) SEPSIS RISK (ng/mL)Low: 0.05-0.50Intermediate: 0.51-2.00High: >=[id number] 03:15:00 Test Item Value Reference Range Interpretation Comments PHOSPHORUS (BEAKER) (test code = 3.1 mg/dL 2.3-4.7 604) [id number] 03:15:00 Test Item Value Reference Range Interpretation Comments MAGNESIUM (BEAKER) (test code = 1.9 mg/dL 1.6-2.6 627) BASIC METABOLIC [id number] 03:15:00 Test Item Value Reference Range Interpretation [...] code = 380) LACTIC ACID, VENOUS, WHOLE [id number] 03:09:00 Test Item Value Reference Range Interpretation Comments LACTATE BLOOD VENOUS (2) (BEAKER) 0.6 mmol/L 0.5-2.2 (test code = 2872) Effective 10/17/2015: Units/Reference Range ChangeNew: 0.5-2.2 mmol/L Previous: 5-20 mg/dLPROTHROMBIN TIME/[id number] 03:07:00 Test Item Value Reference Range Interpretation [...] = 2801) RAD, CHEST, 1 VIEW, NON [id number] 01:06:00Reason for exam:->possible infectionShould this be performed [...] MDReport Verified Date/Time: 05/15/2017 01:06:06 Reading Location: [address] Reading Room
--- OUTSIDE RECORDS SUMMARY | 2020-05-01 14:22 | XMS REPORT | Summary of Care ---
:1990 Author Organization [facility] Address [address] [place] [address] Care Team Providers Name Role Phone Doctor Unassigned, [place] Insurance Hmo Unavailable Denilson Lorenz MD Primary Care Provider Reason for Referral (Routine) Status Reason Specialty Diagnoses / Referred By Referred To Procedures Contact Contact New Request Family Medicine Diagnoses Lupus Akinsipe, Procedures CONSULT/REFERRAL FAMILY MEDICINE DARYL Blandon [address] [place] [address] Reason for Visit Reason Comments Well Woman Exam Encounter Details Date Type Department Care Team Description [facility] Haines Enc ounter for contraceptive management, unspecified type (Primary Dx); DARYL Jorgensen Well woman exam; [address] [place] [facility] [address] Obesity (BMI 30-39.9); Street [place] A Seizures; [place] [address] 15 Lupus [phone] Allergies No Known Allergiesdocumented as of this [...] This exam may be done by a marking room supervisor, family healthcare provider, nurse practitioner, nurse retail warehouse associate, or specially trained nurse. Yearly breast exams [...] Guidelines for having clinical breast exams The [place] [employer]ians [employer] Gynecologists recommends that [...] provider about what is best for you. [employer] ravi reviewed this educational content on 09/14/201919993799-5876 The Box[employer]. All rights reserved. This information is not [...] breast self-examination (BSE). These experts include the [place] [employer] and the [place] Congress of Obstetricians and Gynecologists. Some experts [...] benign. This means they are not cancer. [email or web address] last reviewed this educational content on 10/14/201919993845-1238 The [employer]. All rights reserved. This information is not [...] once as part of routine health care. [email or web address] last reviewed this educational content on 03/15/201719994054-5339 The Box[employer]. All rights reserved. This information is not [...] can make now to protect your future. [email or web address] last reviewed this educational content on 05/15/201819994160-3344 The [employer]. [address] [place] [address], [place] [address]. All rights reserved. This information is not [...] her child during , childbirth, and . [email or web address] last reviewed this educational content on 11/13/201819992941-0366 The Box[employer]. [address] [place] [address], [place] [address]. All rights reserved. This information is not [...] cilantro, cinnamon, cumin, paprika, pepper, and moy. [employer] last reviewed this educational content on 12/14/201919991872-7694 The Box[employer]. All rights reserved. This information is not intended as a substitute for professional medical care. Always follow your healthcare professional's instructions. Patient Education Understanding [employer] MyPlate The [employer] has guidelines to help you make healthy [...] seafood when possible. Purchase low-sodium, reduced-sodium, or rh-hgyd-xdvep food products at the store. And don't [...] and drink water or other unsweetened beverages. [employer] last reviewed this educational content on 11/14/201919994494-8521 The Box[employer]. All rights reserved. This information is not [...] file Gets together: Not on file Attends bahai service: Not on file Active member of [...] 01/16/2020 Present POCT PREG LOT # 01/16/2020 [id number] POCT PREG TEST DA* 01/16/2020 03/14/2021 WBC [...] and mental health on future pregnancies and/or retirement health. Seizures Comment: reports managed Plan: continue [...] BCM: None 3) LMP: 03/15/2020 4) Last [place]: 10/14/2019 5) Last Pap: 07/13/2018 Results: Negative 6) Tdap: 2017 7) Gardasil: N/A 8) C/O: Patient denies any complaints 9) Patient denies history of physical, emotional, or sexual abuse. Patient states that she currently feels safe at home. DOTTY BLEVINS RN 04/10/2020 2:40 PM documented in this encounter Plan of Treatment Name Type Priority Associated Diagnoses Date/Ti me PAP Smear-Liquid Based LAB Routine Well woman exam 3:25 PM CDT HIGH RISK HPV-THIN PREP LAB Routine Well woman exam 1 3:25 PM CDT Name Type Priority Associated Diagnoses Order S [...] Dates Phone Address Type / Group CIGERLINDA HICKEY II [id number] 2017-Pres[employer] O/PPO/POS t [facility] [id number] 2019-[employer] Medicaid COMM PLAN - STAR t MANAGED MEDICAID documented as of this encounter Advance Directives Name Relationship Healthcare Agent Communication Relationship Toya Schumacher [facility] Health Care Agent
--- OUTSIDE RECORDS SUMMARY | 2020-05-01 14:22 | XMS REPORT | Summary of Care ---
:1990 Author Organization [facility] Address [address] [place] [address] Care Team Providers Name Role Phone Doctor Unassigned, [place] Insurance Hmo Unavailable Denilson Lorenz MD Primary Care Provider Reason for Referral (Routine) Status Reason Specialty Diagnoses / Referred By Referred To Procedures Contact Contact New Request Family Medicine Diagnoses Lupus Akinsipe, Procedures CONSULT/REFERRAL FAMILY MEDICINE DARYL Blandon [address] [place] [address] Reason for Visit Reason Comments Well Woman Exam Encounter Details Date Type Department Care Team Description 04/10/2020 [facility] Savanna Haines Enc ounter for contraceptive management, unspecified type (Primary Dx); DARYL Jorgensen Well woman exam; [address] [place] [address] [facility] [address] Obesity (BMI 30-39.9); Street [address] Seizures; [place] [address] 15 Lupus [phone] Allergies No Known Allergiesdocumented as of this [...] This exam may be done by a cook frozen dessert, family healthcare provider, nurse practitioner, nurse front desk agent, or specially trained nurse. Yearly breast exams [...] Guidelines for having clinical breast exams The [place] [employer]st[employer]ians and Gynecologists recommends that [...] provider about what is best for you. [employer] ravi reviewed this educational content on 09/14/201919993327-2732 The [employer]. All rights reserved. This information is not [...] breast self-examination (BSE). These experts include the [employer] and the [place] Congress of Obstetricians and Gynecologists. Some experts [...] benign. This means they are not cancer. [employer] last reviewed this educational content on 10/14/201919998612-9750 The [employer]. All rights reserved. This information is not [...] once as part of routine health care. [employer] last reviewed this educational content on 03/15/201719994943-9067 The [employer]. All rights reserved. This information is not [...] can make now to protect your future. [employer] last reviewed this educational content on 05/15/201819996236-[address] The [employer] [place] [address], [place] [address]. All rights reserved. This information is not [...] her child during , childbirth, and . [employer] last reviewed this educational content on 11/13/201819994841-8129 The [employer]. [address] [place] [address], [place] [address]. All rights reserved. This information is not [...] cilantro, cinnamon, cumin, paprika, pepper, and moy. [employer] last reviewed this educational content on 12/14/201919990839-5090 The [employer]. All rights reserved. This information is not intended as a substitute for professional medical care. Always follow your healthcare professional's instructions. Patient Education Understanding [employer] MyPlate The [employer] has guidelines to help you make healthy [...] seafood when possible. Purchase low-sodium, reduced-sodium, or gn-zrmo-ylsog food products at the store. And don't [...] and drink water or other unsweetened beverages. [employer] last reviewed this educational content on 11/14/201919993572-2914 The [employer]. All rights reserved. This information is not [...] file Gets together: Not on file Attends druze service: Not on file Active member of [...] 01/16/2020 Present POCT PREG LOT # 01/16/2020 [id number] POCT PREG TEST DA* 01/16/2020 03/14/2021 WBC [...] and mental health on future pregnancies and/or alf health. Seizures Comment: reports managed Plan: continue [...] BCM: None 3) LMP: 03/15/2020 4) Last [place]: 10/14/2019 5) Last Pap: 07/13/2018 Results: Negative [...] on patient's age to complete this to [facility] documented as of this encounter Results Not on filedocumented in this encounter Visit Diagnoses Diagnosis Encounter for contraceptive management, unspecified type - Primary Obesity (BMI 30-39.9) Obesity, unspecified Seizures Other convulsions Lupus Systemic lupus erythematosus documented in this encounter Insurance Payer Benefit Plan Subscriber ID Effective Dates Phone Address Type / Group EDELMIRA HICKEY II [id number] [facility] [id number] 2019-[place] Medicaid COMM PLAN - STAR t MANAGED MEDICAID documented as of this encounter Advance Directives Name Relationship Healthcare Agent Communication Relationship Toya Schumacher Mother Health Care Agent
--- OUTSIDE RECORDS SUMMARY | 2020-05-01 14:22 | XMS REPORT | Summary of Care ---
:1990 Author Organization [facility] Address [address] [place] [address] Care Team Providers Name Role Phone Doctor Unassigned, [place] Insurance Hmo Unavailable Denilson Lorenz MD Primary Care Provider Reason for Referral (Routine) Status Reason Specialty Diagnoses / Referred By Referred To Procedures Contact Contact New Request Family Medicine Diagnoses Lupus Akinsipe, Procedures CONSULT/REFERRAL FAMILY MEDICINE DARYL Blandon [address] [place] [address] Reason for Visit Reason Comments Well Woman Exam Encounter Details Date Type Department Care Team Description [facility]/10[facility]vanna Haines Enc ounter for contraceptive management, unspecified type (Primary Dx); DARYL Jorgensen Well woman exam; [address] [place] [address] [facility] [address] Obesity (BMI 30-39.9); Street [address] Seizures; [place] [address] 15 Lupus [phone] Allergies No Known Allergiesdocumented as of this [...] This exam may be done by a maintenance person, family healthcare provider, nurse practitioner, nurse electrical construction project manager, or specially trained nurse. Yearly breast exams [...] Guidelines for having clinical breast exams The [place] [employer]stetricians and Gynecologists recommends that [...] provider about what is best for you. [employer] ravi reviewed this educational content on 09/14/201919999311-7485 The [employer]. All rights reserved. This information is not [...] breast self-examination (BSE). These experts include the [place] [employer] and the [place] [employer] of Obstetricians and Gynecologists. Some experts [...] benign. This means they are not cancer. [employer] last reviewed this educational content on 10/14/201919990855-3290 The [employer]. All rights reserved. This information is not [...] once as part of routine health care. [employer] last reviewed this educational content on 03/15/201719991979-0596 The [employer]. All rights reserved. This information is not [...] can make now to protect your future. [employer] last reviewed this educational content on 05/15/201819998815-4085 The [employer]. [address] [place] [address], [place] [address]. All rights reserved. This information is not [...] her child during , childbirth, and . [employer] last reviewed this educational content on 11/13/201819995162-9269 The [employer]. [address] [place] [address], [place] [address]. All rights reserved. This information is not [...] cilantro, cinnamon, cumin, paprika, pepper, and moy. [employer] last reviewed this educational content on 12/14/201919999511-4123 The [employer]. All rights reserved. This information is not intended as a substitute for professional medical care. Always follow your healthcare professional's instructions. Patient Education Understanding [employer] MyPlate The [employer] has guidelines to help you make healthy [...] seafood when possible. Purchase low-sodium, reduced-sodium, or ou-ldvs-ithjw food products at the store. And don't [...] and drink water or other unsweetened beverages. [employer] last reviewed this educational content on 11/14/201919997862-2615 The [employer]. All rights reserved. This information is not [...] file Gets together: Not on file Attends episcopal service: Not on file Active member of [...] 01/16/2020 Present POCT PREG LOT # 01/16/2020 [id number] POCT PREG TEST DA* 01/16/2020 03/14/2021 WBC [...] and mental health on future pregnancies and/or jail health. Seizures Comment: reports managed Plan: continue [...] BCM: None 3) LMP: 03/15/2020 4) Last [place]: 10/14/2019 5) Last Pap: 07/13/2018 Results: Negative [...] on patient's age to complete [facility] to [facility] documented as of this encounter Results Not on filedocumented in this encounter Visit Diagnoses Diagnosis Encounter for contraceptive management, unspecified type - Primary Obesity (BMI 30-39.9) Obesity, unspecified Seizures Other convulsions Lupus Systemic lupus erythematosus documented in this encounter Insurance Payer Benefit Plan Subscriber ID Effective Dates Phone Address Type / Group EDELMIRA HICKEY II [id number] [facility] [id number] 2019-[place] Medicaid COMM PLAN - STAR t MANAGED MEDICAID documented as of this encounter Advance Directives Name Relationship Healthcare Agent Communication Relationship Toya Schumacher Mother Health Care Agent
[2020-05-01] MEDS ORDERED: levETIRAcetam 1,000 MG in NA CHLORIDE 0.9% 100 ML IV ONE (14:45)
[2020-05-01] MEDS ORDERED: NA CHLORIDE 0.9% 1,000 ML ONE (15:05)
[2020-05-01 15:13] LABS: Barbiturates NEGATIVE (NEGATIVE); Benzodiazepines POSITIVE (NEGATIVE); Cocaine NEGATIVE (NEGATIVE); METHAMPHETAM NEGATIVE (NEGATIVE); Methadone NEGATIVE (NEGATIVE); Opiates NEGATIVE (NEGATIVE); Phencyclidine NEGATIVE (NEGATIVE); THC Cannibis NEGATIVE (NEGATIVE)
[2020-05-01 16:00] LABS: Urine Blood NEGATIVE (NEG); Urine Glucose NEGATIVE (NEG); Urine Protein NEGATIVE (NEG); Urine pH 7.5 (5.0-7.0)
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
[2020-05-01 23:21] VITALS: BP 125/89; TEMP 99.1; O2SAT 99
--- NOTE | 2020-05-03 06:09 | EKG ---
Test Date: 2020-05-01 Test Time: 14:18:43 Leaf Tinner: ROBERT MEASUREMENT RESULTS: Intervals: Rate: 95 NV: 158 QRSD: 82 QT: 360 QTc: 452 [place]: P: 51 NV: 158 QRS: 7 T: 19 INTERPRETIVE STATEMENTS: Normal sinus rhythm Possible Left atrial enlargement Cannot rule out Anterior infarct, age undetermined Abnormal ECG Compared to ECG 04/02/2020 12:40:23 No significant changes Electronically Signed On 05-03-20 06:03:40 MATURITY CHECKER by Merrill Guzman
== END 2020-05-01 16:10 | disposition left against medical advice (07) ==
LOC: ER 14:01
DX: G40.802 Other epilepsy, not intractable, without status epilepticus (principal)
CPT/HCPCS: 96365; 93005; 81025; 80307 ×8; 81003; 51702; 99284; J1953; J7030

== ENCOUNTER 2020-05-03 12:02 | Emergency (ER) | payer OTHER ==
--- OUTSIDE RECORDS SUMMARY | 2020-05-03 12:08 | XMS REPORT | Clinical Summary ---
:1990 Author Organization [facility] Address [address] [place] [address] Care Team Providers Name Role Phone Unavailable Primary Care Provider Unavailable Allergies No Known Allergies Medications Medication Sig Dispensed Refills Start Date End Date Status levETIRAcetam (KEPPRA) Take 1 tablet 60 tablet 2 05/19/2017 Active 1000 MG tablet (1,000 mg total) by mouth 2 (two) times daily. vitamin Take 1 tablet by 90 tablet 3 05/20/2017 Active w/usitwdi-xveg-hbqcvd mouth daily. ( PLUS) 27 mg iron- [...] VACCINE (#1) 2020 Results Not on fileafter 05/03/2019 [id number] 1 Advance Directives For more information, please contact: [phone] Code Status Date Activated Date Inactivated Comments Full Code 05/14/2017 10:10 PM 05/19/2017 2:55 PM This code status was determined by: Patient
--- OUTSIDE RECORDS SUMMARY | 2020-05-03 12:08 | XMS REPORT | Clinical Summary ---
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 Critical care was time [...] Lactic acid 1.1 0.5 - 2.2 mmol/L [facility] Specimen Plasma Performing Organization Address [facility] Phon e Number [facility] DEPARTMENT OF PATHOLOGY AND [address] [place] [address] Phosphorus level (04/04/2020 6:33 PM CDT) Pathologist Sig nature Phosphorus 3.7 2.4 - 4.5 mg/dL [facility] L Specimen Plasma Performing Organization Address [facility] Phon e Number [facility] DEPARTMENT OF PATHOLOGY AND [address] [place] [address] [address] Comprehensive metabolic panel (04/04/2020 6:33 PM CDT)Only the most recent of3 resultswithin the time period is included. Sodium 138 135 - 148 [facility] mEq/L [facility] Potassium 3.6 3.5 - 5.0 [facility] mEq/L [facility] Chloride 105 98 - 112 [facility] mEq/L [facility] CO2 22 (L) 24 - 31 mEq/L [facility] Anion gap 11@ANIO 7 - 15 mEq/L [facility] BUN 7 6 - 20 mg/dL [facility] Creatinine 0.46 (L) 0.50 - 0.90 [facility] mg/dL [facility] Glucose 96 65 - 99 mg/dL [facility] Calcium 9.2 8.3 - 10.2 [facility] mg/dL HOSPITAL Protein 7.1 6.3 - 8.3 [facility] Comment: g/dL HOSPITAL - 4.6-7.0 g/dL 1 week 4.4-7.6 g/dL 7 months-1year 5.1-7.3 g/dL 1-2 years 5.6-7.5 g/dL >3 years 6.0-8.0 g/dL 18-150 6.3-8.3 g/dL Albumin 3.8 3.5 - 5.0 [facility] g/dL [facility] A/G ratio 1.2 0.7 - 3.8 [facility] Alkaline phosphatase 64 35 - 104 U/L [facility] AST 20 10 - 35 U/L [facility] ALT 14 5 - 50 U/L [facility] Total bilirubin 0.4 0.0 - 1.2 [facility] mg/dL [facility] Specimen Plasma Performing Organization Address City/State/ZIP Code Phon e Number [facility] DEPARTMENT OF PATHOLOGY AND [address] [place], [place] [address] GENOMIC MEDICINE [facility] [address] [place] [address] PET Brain Metabolic Eval (03/30/2020 1:51 PM [...] cerebellar hypometabolism sugg ests a pharmacologic effect. [facility]-[id number] Procedure Note Hm Interface, Radiology Results Incoming [...] cerebellar hypometabolism sugg ests a pharmacologic effect. [facility]-[id number] Performing Organization Address City/State/ZIP Code Phon e Number [facility] [address] [place] [address] MRI Brain W Wo Contrast (03/27/2020 1:50 [...] 1Tx/32Rx head coil. Acquired sequences include MPRAGE, [id number], T2 JAEL, T2 FLAIR, SWI, and DTI [...] abnormality identified to explain patien t's seizures. [facility]-[id number] Procedure Note Hm Interface, Radiology Results Incoming - 03/28/2020 2:52 PM CDT EXAMINATION: MRI BRAIN W WO CONTRAST CLINICAL HISTORY: R56.9 Unspecified con vulsions, Seizures COMPARISON: Brain MRI on 11/13/[address] on 03/12/2020. TECHNIQUE: High-resolution brain MRI wit hout and with intravenous gadolinium contrast acquired using 7T MRI with 1Tx/32Rx head coil. Acquired sequences include MPRAGE, [id number], T2 JAEL, T2 FLAIR, SWI, and DTI [...] structural abnormality identified to explain patient's seizures. [facility]-[id number] Performing Organization Address City/State/ZIP Code Phon e Number [facility] [address] [place] [address] Epilepsy/Seizure monitoring (03/15/2020 12:14 PM CDT) Narrative [...] is included. Manual differential PERFORMED [facility] Neutrophils 51.0 39.0 - 69.0 % [facility] Lymphocytes 34.0 25.0 - 45.0 % [facility] Monocytes 13.0 (H) 0.0 - 10.0 % [facility] Eosinophils 2.0 0.0 - 5.0 % [facility] Basophils 0.0 0.0 - 1.0 % [facility] Metamyelocytes 0 % [facility] Promyelocytes 0 % [facility] Platelet slide review Sana adequate [facility] Anisocytosis Moderate [facility] Ovalocytes Moderate [facility] Enlarged platelets Moderate (A) [facility] Specimen Performing Organization Address City/State/ZIP Code Phon e Number [facility] DEPARTMENT OF PATHOLOGY AND [address] [place], [place] [address] GENOMIC MEDICINE [facility] [address] [place] [address] Continuous EEG monitoring (11/15/2019 1:22 AM CDT) [...] (L) 37 - 145 ug/dL [facility] Iron binding capacity 335 200 - 400 ug/dL [facility] % Saturation 6.0 (L) 15.0 - 38.0 % [facility] Specimen Blood Performing Organization Address City/State/ZIP Code Phon e Number [facility] DEPARTMENT OF PATHOLOGY AND [address] [place] [address] [phone] [address] Ferritin level (11/13/2019 4:00 AM CDT) Pathologist [facility] Ferritin level <13 (A) 13 - 150 ng/mL [facility] Specimen Blood Performing Organization Address City/[facility] Phon e Number [facility] DEPARTMENT OF PATHOLOGY AND [address] [place] [address] [phone] [address] MARCELINO titer (11/12/2019 7:40 PM CDT) Pathologist Sig [facility] MARCELINO titer 1:160 (A) Not-Detected [facility] MARCELINO pattern Homogeneous (A) Not-Detected [facility] Specimen Blood Performing Organization Address [facility] Phon e Number [facility] DEPARTMENT OF PATHOLOGY AND [address] [place] [address] [phone] [address] MARCELINO (11/12/2019 7:40 PM CDT) [facility] MARCELINO screen Positive (A) Negative [facility] Comment: HOSPITAL Test performed using [employer]ovascul[employer] DAPI MARCELINO kit (Indirect Immunofluorescence Assay) for Anti-Nuclear Antibody on [employer]x StudioA-Lyser 160 Analyzer. Specimen Blood Performing Organization Address City/[facility] Phon e Number [facility] DEPARTMENT OF PATHOLOGY AND [address] [place] [address] [phone] [address] Creatine kinase, total (CPK) (11/12/2019 7:40 PM CDT) Pathologist Sig [facility] Creatine kinase 56 26 - 192 U/L [facility] L Specimen Performing Organization Address City/[facility] Phon e Number [facility] DEPARTMENT OF PATHOLOGY AND [address] [place] [address] [phone] [address] Cortisol level, random (11/12/2019 7:40 PM CDT) Pathologist [facility] Cortisol, random 2 ug/dL [facility] Comment: HOSPITAL Reference Ranges are not established for non-timed Cor tisol levels. Reference Range for Timed Cortisol: 6 - 10 AM 6 - 18 ug/d l 4 - 8 PM 3 - 11 ug/ dl Specimen Blood Performing Organization Address City/State/ZIP Code Phon e Number [facility] DEPARTMENT OF PATHOLOGY AND [address] [facility] [place] [address] GENOMIC MEDICINE [facility] [address] [place] [address] CT Cervical Spine Wo Contrast (11/12/2019 6:12 [...] subluxation identif ied in the cervical spine. [facility]-[id number] Procedure Note Interface, Radiology Results Incoming - [...] subluxation identif ied in the cervical spine. [facility]-[id number] Performing Organization Address [facility]/ZIP Code Phon e Number [facility] [address] [place] [address] CT Maxillofacial Wo Contrast (11/12/2019 6:09 PM [...] unre markable. The paranasal sinuses are clear. [facility]-[id number] Procedure Note Interface, Radiology Results Incoming - [...] unre markable. The paranasal sinuses are clear. [facility]-[id number] Performing Organization Address [facility] Code Phon e Number [facility] [address] [place] [address] XR Chest 1 Vw Portable (11/12/2019 5:35 [...] There is no acute cardiopulmonary dis ease. [id number] Procedure Note Interface, Radiology Results Incoming - [...] There is no acute cardiopulmonary dis ease. [id number] Performing Organization Address [facility] Number [facility] [address] [place] [phone] Alcohol level, blood (11/12/2019 5:04 PM CDT) Alcohol None Detected mg/dL [facility] Comment: HOSPITAL Normal None Detected Legal Intoxication in [place] 80 mg/dL (0.08%) - Whole Blood Toxic Concentration 200 mg/dL (0.2%) Potentially Fatal 350 - 500 mg/dL (0. 35 - 0.5%) Alcohol percent None Detected % [facility] Specimen Blood Performing Organization Address [facility] Phon e Number [facility] DEPARTMENT OF PATHOLOGY AND [address] [place] [phone] [address] hCG qualitative, urine screen (11/12/2019 2:44 PM CDT) hCG qualitative, NegativeComment: [facility] urine Sensitivity of HCG [facility] 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
--- OUTSIDE RECORDS SUMMARY | 2020-05-03 12:12 | XMS REPORT | Continuity of Care Document ---
:1990 Author Organization Formerly [facility] t Address [address] [place] [address] Care Team Providers Name Role Phone Asked, Pcp Primary Care Physician Unavailable Vini Turner MD Attending Clinician Gaye MENDOZA Attending Clinician Yancy ROACHP C Attending Clinician Darren CRUZ Attending Clinician Unavailable Chandrika Ron MD Attending Clinician Alissa MENDOZA Attending Clinician Ninfa MENDOZA Attending Clinician Niki RN, A Attending Clinician Unavailable Di TAYLOR Attending Clinician Unavailable Adolfo Bailey MD Attending Clinician Susi Diana MD Attending Clinician BRANDO RODAS Attending Clinician Unavailable ALISSA Admitting Clinician Unavailable GAYE Admitting Clinician Unavailable Juliano DEJESUS Admitting Clinician Unavailable Payers Payer Name Policy Type Policy Effective Date Expiration Date Sour ce Number MEDICAIDMEDICAID [id number] 2019 [place] [id number] 00:00:00 Methodis t 0-PresentMedicai d CIGNACIGNA OPEN [id number] 2019 [place] ACCESS/NETWORKxx 00:00:00 Methodis t [id number] 0-PresentHMO Problems Condition Condition Condition Status Onset Resolution Last Treating Co mments Source Name Details Category Date Date Treatment Clinician Date Epilepsy Epilepsy Disease Active 2019-06 [place] 0 [facility]: st 00 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 00:00: st with with 00 generaliza generaliza tion and tion and with with intractabl intractabl e epilepsy e epilepsy Seizure Seizure Disease Active [place] 11-11 [facility]: st 00 Hypokalemi Hypokalemi Disease Active 2016-[address] [facility] 00 [place] Acute Acute Disease Active 2016-[address] [facility] [address] encephalop encephalop 1-30 [facility] kes - athy athy 00:00: Medical 00 [place] Seizure Seizure Disease Active 2016-[address] [facility] [address] disorder disorder 1-30 [facility] 00 [place] Leukocytos Leukocytos Disease Active 2016-[address] [facility] is 1-30 [facility] 00 [place] Less than Less than Disease Active 2016-[address] [facility] [address] 8 weeks 8 weeks 130 [facility] - gestation gestation 00:00: Medi jesica of 00 Center Allergies, Adverse Reactions, Alerts Allergy Allergy Status Severity Reaction(s) Onset Inactive Treating Comm ents Source Name Type Date Date Clinician No Known DA Active U [facility] All[facility]ie 02-23 [place] [facility] 00:00: d Medical [place] No Known DA Active U 2016-06 [facility] Allergie 07-08 [facility] 00:00: Jess 00 Medical [place] Social History Social Habit Start Date Stop Date Quantity Comments Source Sex Assigned At [facility] ethodist Exposure to Not sure [place] Metho dist SARS-CoV-2 (event) Tobacco use and 2020-05-02 2020-05-02 Never used [facility] ethodist exposure 00:00:00 00:00:00 Alcohol intake 2020-05-02 2020-05-02 Ex-drinker [facility] thodist 00:00:00 00:00:00 (finding) Smoking Status Start Date Stop Date Source Never smoker [place] Methodis t Medications Ordered Filled Start Stop Current Ordering Indication Dosage Frequency Signature Comments Components Source Medication Medication Date Date Medication? Clinician (SIG) Name Name cloBAZam 2019-06- Yes 30mg QD Take 3 [place] (ONFI) 10 1-12 05-11 tablets Method i mg tablet 00:00: 23:59 ([address] 00 :00 total) by mouth daily for 180 days. ergocalcife 2019-06- Yes [id number] Q7D Take 1 [place] 0-31 [...] by mouth nightly for 180 days. levETIRAcet 2019- No 750mg Q.5D Take 750 [place] am (KEPPRA) 8-08 10-24 mg by Method i 750 MG 00:00: 00:[address] tablet 00 :00 (two) times a day. levETIRAcet 2020- No 750mg Q.5D Take 750 [place] am (KEPPRA) 6- 06-02 mg by Method i 750 MG [...] Take 1 [place] complex-vit 11-14 tablet by Tn marques carter 00:00: 23:[address] C-folic 00 :00 daily for acid 30 days. (FOLBEE PLUS 5 MG) 5 mg tablet per tablet cloBAZam 2019- No 10mg QD Take 1 [place] (ONFI) 10 11-14- tablet (10 Met hodi mg tablet 00:00: [...] 100mg Q.5D Take 1 [place] sodium 6-02 07-02 capsule Methodi (COLACE) 00:00: 23:59 (100 mg [...] by Center mouth 2 (two) times daily. Immunizations Ordered Immunization Filled Immunization Date Status Commen ts Source Name Name Tdap 2020-05-02 Completed [place] 00:00:00 Gnosticism Vital Signs Vital Name Observation Time Observation Value Comments Source Systolic blood 2020-05-02 17:45:00 127 mm[Hg] Luz n Gnosticism pressure Diastolic blood 2020-05-02 17:45:00 74 mm[Hg] Julee on Gnosticism pressure Heart rate 2020-05-02 17:45:00 82 /min Enrique Piedra Respiratory rate 2020-05-02 17:45:00 14 /min Sonja ton Gnosticism Oxygen saturation in 2020-05-02 17:45:00 100 /min Enrique Piedra Arterial blood by Pulse oximetry Body height 2020-05-02 14:28:00 160 cm [place] Gnosticism Body weight 2020-05-02 14:28:00 78.019 kg Enrique Piedra BMI 2020-05-02 14:28:00 30.47 kg/m2 Enrique Piedra Body temperature 2020-05-02 14:17:21 36.94 Melody Sonja ton Gnosticism Procedures Procedure Date / Time Performing Clinician Source Performed COVID-19 QUALITATIVE PCR 2020-05-02 16:10:00 Daniel Turner URINE CULTURE 2020-05-02 15:51:[address] HEAD WO CONTRAST 2020-05-02 15:47:02 Daniel Turner on Gnosticism HC COMPLETE BLD COUNT 2020-05-02 15:30:00 Turner, Daniel Vini Chandler ston Gnosticism W/AUTO DIFF HCG QUALITATIVE, SERUM 2020-05-02 15:30:00 Daniel Turner Gnosticism SCREEN BASIC METABOLIC PANEL 2020-05-02 15:30:00 Daniel Turner Gnosticism ESTIMATED GFR 2020-05-02 15:30:00 Anthony Danielori Rai ethodist SMEAR REVIEW 2020-05-02 15:30:00 Terri Turnerori Rai ethodist URINALYSIS SCREEN AND 2020-05-02 15:28:00 Daniel Turner Gnosticism MICROSCOPY, WITH REFLEX TO CULTURE POC GLUCOSE 2020-04-06 17:27:00 Freddy Ocasio Meth odist DOUBLE-STRANDED DNA 2020-04-06 16:50:00 Ninfa Johnson [facility] (DSDNA) ANTIBODIES, Ninfa CRITHIDIA CENTROMERE ANTIBODY 2020-04-06 16:50:00 Ninfa Johnson Gnosticism Ahmed SS-B ANTIBODY 2020-04-06 16:50:00 Ninfa Johnson Me thodist Ahmed POTASSIUM LEVEL 2020-04-05 17:40:00 Reza Avelar odist HOMOCYSTINE, PLASMA 2020-04-05 17:40:00 Reza Avelar Gnostic[facility] EEG AWAKE/DROWSY LESS 2020-04-05 11:03:26 Reza Avelar Gnosticism THAN 41 MIN HC COMPLETE BLD COUNT 2020-04-05 04:00:00 Caesar Maxwell Gnosticism W/AUTO DIFF VITAMIN B12 LEVEL 2020-04-05 04:00:00 Reza Avelar Tn thodist C-REACTIVE PROTEIN 2020-04-05 04:00:00 Reza Avelar ethodist HOMOCYSTINE, PLASMA 2020-04-05 04:00:00 Reza Avelar Gn[facility] RHEUMATOID FACTOR 2020-04-05 04:00:00 Reza Avelar Tn thodist THYROID STIMULATING 2020-04-05 04:00:00 Reza Avelar Gnostic[facility] HORMONE T4, FREE 2020-04-05 04:00:00 Reza Avelar Meth odist T3 2020-04-05 04:00:00 Reza Avelar Meth odist SYPHILIS TOTAL ANTIBODY 2020-04-05 04:00:00 Reza Avelar Gnostic[facility] HIV AG/AB COMBINATION 2020-04-05 04:00:00 Reza Avelar Gnosticism VITAMIN D 25 HYDROXY 2020-04-05 04:00:00 Reza Avelar Gnosticism LEVEL BASIC METABOLIC PANEL 2020-04-05 04:00:00 Caesar Maxwell on Gnosticism FOLATE LEVEL 2020-04-05 04:00:00 Caesar Maxwell Met aleah MAGNESIUM LEVEL 2020-04-05 04:00:00 Caesar Maxwell Met aleah ESTIMATED GFR 2020-04-05 04:00:00 Caesar Maxwell Met aleah COVID-19 QUALITATIVE PCR 2020-04-04 22:52:[address] HEAD WO CONTRAST 2020-04-04 21:17:59 Max Ron Gn[facility] CBC HEMOGRAM 2020-04-04 21:00:00 Max Ron Me thodist SEDIMENTATION RATE 2020-04-04 21:00:00 Max Ron Gnosticism URINE CULTURE 2020-04-04 20:52:00 Max Ron Me thodist KEPPRA (LEVETIRACETAM) 2020-04-04 20:15:00 Max Ron ston Gnosticism LEVEL URINALYSIS SCREEN AND 2020-04-04 19:19:00 Max Ron Gnosticism MICROSCOPY, WITH REFLEX TO CULTURE URINE DRUGS OF ABUSE 2020-04-04 19:19:00 Max Ron on Gnosticism SCREEN PROLACTIN LEVEL 2020-04-04 19:07:00 Max Ron Me thodist ECG 12-LEAD 2020-04-04 19:02:38 Max Ron Me thodist CRITICAL CARE 2020-04-04 18:48:10 Lila Byers Meth odist COMPREHENSIVE METABOLIC 2020-04-04 18:33:00 Max Ron [place] Gnosticism PANEL LACTIC ACID LEVEL, SEPSIS 2020-04-04 18:33:00 Asaf Max Piedra - NOW AND REPEAT 2X EVERY 3 HOURS MAGNESIUM LEVEL 2020-04-04 18:33:00 Tank Rontheo Nunez Me thodist PHOSPHORUS LEVEL 2020-04-04 18:33:00 Tank Rontheo Cobos Enrique M ethodist ESTIMATED GFR 2020-04-04 18:33:00 Tank Rontheo Nunez Me thodist PET BRAIN METABOLIC EVAL 2020-03-30 13:51:58 Pinky Huizarnina Piedra POC GLUCOSE 2020-03-30 12:29:00 Richard Huizar Enrique Light odist MRI BRAIN W WO CONTRAST 2020-03-27 13:50:00 Gaye Richard Piedra MONITORED VIDEO-EEG 60 2020-03-15 12:14:01 Pinky Huizarnina Ladd on Gnosticism HRS 1 MIN-74 HRS MONITORED W VIDEO DAILY 2020-03-15 00:12:21 Gaye Richard lemus Gnosticism MONITORED W VIDEO DAILY 2020-03-14 00:24:17 Gaye Richard lemus Gnosticism EEG SETUP 2020-03-13 00:17:20 Pinky Huizarnina Nunez Meth odist HC COMPLETE BLD COUNT 2020-03-12 14:18:00 Ulises Choudhary W/AUTO DIFF COMPREHENSIVE METABOLIC 2020-03-12 14:18:00 Ulises Choudhary PANEL ESTIMATED GFR 2020-03-12 14:18:00 Pinky Huizarnina Nunez Meth odadriano MAGNESIUM LEVEL 2020-03-12 14:18:00 Pinky Huizarnina Nunez Meth odadriano CT HEAD WO CONTRAST 2020-03-12 13:25:51 Ulises Choudhary COVID-19 QUALITATIVE PCR 2020-03-12 11:53:00 Ulises Choudhary UNMONITORED VIDEO-EEG 36 2019-11-15 09:41:23 Bina Bonds HRS 1 MIN-50 HRS CBC WITH PLATELET AND 2019-11-15 04:30:00 Adrian Diana DIFFERENTIAL Ebrahim MANUAL DIFFERENTIAL 2019-11-15 04:30:00 Adrian Diana Ebrahim BASIC METABOLIC PANEL 2019-11-15 04:00:00 Liana Adrian pinzon Gnosticism Ebrahim ESTIMATED GFR 2019-11-15 04:00:00 Adrian Diana Meth odist Ebrahim UNMONITORED VIDEO DAILY 2019-11-15 01:22:22 Bina Bonds Gnosticism EEG SETUP 2019-11-14 00:26:44 Bina Bonds EEG (ROUTINE) 2019-11-13 07:46:23 Bina Bonds CBC WITH PLATELET AND 2019-11-13 04:00:00 Caesar Maxwell on Gnosticism DIFFERENTIAL BASIC METABOLIC PANEL 2019-11-13 04:00:00 Caesar Maxwell on Gnosticism TOTAL IRON BINDING 2019-11-13 04:00:00 Caesar Maxwell CAPACITY FERRITIN LEVEL 2019-11-13 04:00:00 Caesar Maxwell Met hodist ESTIMATED GFR 2019-11-13 04:00:00 Caesar Maxwell Met hodist MANUAL DIFFERENTIAL 2019-11-13 04:00:00 Caesar Maxwell MRI BRAIN W WO CONTRAST 2019-11-13 02:16:00 Bina Bonds CONSULT TO OSTOMY CARE 2019-11-12 23:40:27 Caesar Maxwell Gnosticism NURSE ECG 12-LEAD 2019-11-12 21:10:47 Bina Bonds MARCELINO 2019-11-12 19:40:00 Bina Bonds FOLATE LEVEL 2019-11-12 19:40:00 Bina Bonds VITAMIN B12 LEVEL 2019-11-12 19:40:00 Bina Bonds Gnosticism C-REACTIVE PROTEIN 2019-11-12 19:40:00 Bina Bonds Gnosticism HOMOCYSTINE, PLASMA 2019-11-12 19:40:00 Bina Bonds Gnosticism CORTISOL LEVEL, RANDOM 2019-11-12 19:40:00 Bina Bonds Gnosticism SEDIMENTATION RATE 2019-11-12 19:40:00 Bina Bonds on Gnosticism RHEUMATOID FACTOR 2019-11-12 19:40:00 Bina Bonds Gnosticism THYROID STIMULATING 2019-11-12 19:40:00 Bina Bonds Gnosticism HORMONE T4, FREE 2019-11-12 19:40:00 Bina Bonds SYPHILIS TOTAL ANTIBODY 2019-11-12 19:40:00 Bina Bonds HIV AG/AB COMBINATION 2019-11-12 19:40:00 Bina Bonds Gnosticism VITAMIN D 25 HYDROXY 2019-11-12 19:40:00 Vamshi Debbiecarlee Arteaga stoalberta Gnosticism LEVEL CREATINE KINASE, TOTAL 2019-11-12 19:40:00 Shari Bailey on Gnosticism (CPK) [facility] PROLACTIN LEVEL 2019-11-12 19:40:00 Leo Sharimayda Nunez Meth odist Adolfo MARCELINO TITER 2019-11-12 19:40:00 LeoManasSharimayda Nunez Meth odist Adolfo CT CERVICAL SPINE WO 2019-11-12 18:12:54 Shari Bailey Gnosticism CONTRAST Adolfo CT MAXILLOFACIAL WO 2019-11-12 18:09:40 Shari Bailey [facility] CONTRAST Adolfo CT HEAD WO CONTRAST 2019-11-12 18:09:19 Shari Bailey Gnosticism [facility] XR CHEST 1 VW PORTABLE 2019-11-12 17:35:36 Shari Bailey on Gnosticism [facility] HC COMPLETE BLD COUNT 2019-11-12 17:04:00 Shari Bailey Gnostic[facility] W/AUTO DIFF [facility] COMPREHENSIVE METABOLIC 2019-11-12 17:04:00 Shari Bailey [facility] PANEL [facility] ALCOHOL LEVEL, BLOOD 2019-11-12 17:04:00 Shari Bailey Gnosticism Adolfo KEPPRA (LEVETIRACETAM) 2019-11-12 17:04:00 Shari Bailey on Gnosticism LEVEL Adolfo ESTIMATED GFR 2019-11-12 17:04:00 Shari Bailey Meth odist Adolfo URINE CULTURE 2019-11-12 14:44:00 Keanu Flores Meth odist URINALYSIS SCREEN AND 2019-11-12 14:44:00 Keanu Flores Gnosticism MICROSCOPY, WITH REFLEX TO CULTURE HCG QUALITATIVE, URINE 2019-11-12 14:44:00 Keanu Flores on Gnosticism SCREEN URINE DRUGS OF ABUSE 2019-11-12 14:44:00 Keanu Flores [facility]ism SCREEN Plan of Care Planned Activity Planned Date Details Comments Source Future Scheduled 2020-02-[address] [facility] - Test 00:00:00 (#1) [code = [facility] INFLUENZA VACCINE (#1)] Future Scheduled 2020-01-14 INFLU[place]ZA VACCINE [place] [facility] Test 00:00:00 [code = INFLUENZA VACCINE] Future Scheduled [address] [facility] [facility] - Test 00:00:00 malignant neoplasm Medical C enter of cervix (procedure) [code = 784108266] Future Scheduled 2010 Screening for Nunez Me thodist Test 00:00:00 malignant neoplasm of cervix (procedure) [code = 203547148] Encounters Start End Encounter Admission Attending Care Care Encounter Source Date/Time Date/Time Type Type Clinicians Facility Department ID 2020-05-02 2020-05-02 Emergency ANTHONY, [facility] 064 [id number] [place] 00:00:00 00:00:00 DANIEL [address] 2020-04-26 2020-04-26 Outpatient RICHARD HUIZAR [facility] [id number] [place] 00:00:00 00:00:[address] 2020-04-10 2020-04-10 Office [facility], [facility] [id number] 14:14:37 15:26:08 Visit Savanna Muñoz [employer] [id number] [facility] [id number] MATERNAL [id number] & CHILD [address] [place] [address] 2020-04-04 2020-04-07 Inpatient JOSE MARTIN, [facility] 064 [id number] [place] 00:00:00 00:00:00 YATHU [address] 2020-03-30 2020-03-30 Outpatient RICHARD HUIZAR [facility] [id number] [place] 00:00:00 00:00:[address] 2020-03-27 2020-03-27 Outpatient RICHARD HUIZAR [facility] [id number] [place] 00:00:00 00:00:[address] 2020-03-12 2020-03-15 Inpatient RICHARD HUIZAR [facility] 016 [id number] [place] 00:00:00 00:00:[address] 2020-02-16 2020-02-16 Outpatient RICHARD HUIZAR [facility] [id number] [place] 00:00:00 00:00:[address] 2019-11-12 2019-11-15 Inpatient LIANA [facility] 064 [id number] [place] 00:00:00 00:00:00 ADRIAN [address] Results Test Description Test Time Test Comments Results Result Comments Source COVID-19 qualitative PCR 2020-05-02 22:57:50 Test Item Value Reference Range Interpretation Comme nts Interpretation (test code = Negative results do not 0335820) preclude 2019-nCoV infection and should not be used as the sole basis for treatment or other patient management decisions. Negative results must be combined with clinical observations, patient history, and epidemiological information. COVID-19 qualitative PCR Not-Detected Not-Detected result (test code = 85628-4) COVID-19 qualitative PCR See link below for PDF Lab Case Number: (test code = 7070) Report [id number] [place] MethodistUrinalysis screen and microscopy, with reflex to culture 2020-05-02 17:03:04 Test Item Value Reference Range Interpretation Comments Specimen site (test code = Clean catch 7096495) Color, UA (test code = 5778-6) Yellow Appearance, UA (test code = Clear 5767-9) Specific gravity, UA (test code = 1.035 1.001-1.035 5811-5) pH, UA (test code = 5803-2) 5.0 5.0-8.5 Protein, UA (test code = 75652-6) Negative Negative Glucose, UA (test code = 47321-8) Negative Negative Ketones, UA (test code = 2514-8) Trace Negative A Bilirubin, UA (test code = Negative Negative 5770-3) Blood, UA (test code = 5794-3) Negative Negative Nitrite, UA (test code = 5802-4) Negative Negative Urobilinogen, UA (test code = <2.0 <2.0 41872-5) Leukocyte esterase, UA (test code Small Negative A = 5799-2) Epithelial cells, UA (test code = 6 /HPF 5787-7) WBC, UA (test code = 5821-4) 10 0- 4 /HPF H RBC, UA (test code = 55593-7) 2 0- 5 /HPF Bacteria, UA (test code = Few None seen 09827-7) Yeast, UA (test code = 43925-5) None seen Yeast with pseudohyphae, UA (test None seen code = 50109-1) Lab Interpretation (test code = Abnormal 35061-6) [facility], serum [id number] 16:18:10 Test Item Value Reference Range Interpretation Comments hCG qualitative, Negative Sensitivity of HCG test: serum (test code = 25 mIU/mL 2117-8) [facility] MethodistBasic metabolic [id number] 16:11:00 Test Item Value Reference Range Interpretation Comments Sodium (test code = 2951-2) 140 135- 148 mEq/L Potassium (test code = 2823-3) 3.7 3.5- 5.0 mEq/L Chloride (test code = 2075-0) 103 98- 112 mEq/L CO2 (test code = 2027-9) 25 24- 31 mEq/L Anion gap (test code = 92906-4) 12@ANIO 7- 15 mEq/L BUN (test code = 3094-0) 13 mg/dL 6-20 Creatinine (test code = 2160-0) 0.70 mg/dL 0.5-0.9 Glucose (test code = 2345-7) 93 mg/dL 65-99 Calcium (test code = 91584-4) 9.6 mg/dL 8.3-10.2 [place] MethodistEstimated [id number] 16:11:00 Test Item Value Reference Range Interpretation Comments Estimated GFR (test >=90 mL/min/1.73 m2 [facility] or Units code = 5488) InterpretationG 1 >=90 Normal or highG2 60-89 Mildly lcjpqqlibN5p 45-59 Mildly to mode rately goblkzkjtV7d 30-44 Moderately to severely decreasedG4 15-29 Severely decre asedG5 <15 Kidn ey failureThe eGFR was calculated alyssa fortune the Chronic Kidney Disease Epidemiology Co llaboration (CKD-EPI) equat ion. Interpretation is based on recommendations of the National Kidney Foundation-Kidn ey Disease Outcomes Qualit y Initiative (NKF-KDOQI) pub lished in 2013. Enrique MethodistCBC with platelet and [id number] 16:06:29 Test Item Value Reference Range Interpretation Comments WBC (test code = 46264-9) 10.69 4.50- 11.00 k/uL RBC (test code = 66010-7) 4.71 m/uL 4.2-5.5 HGB (test code = 718-7) 13.5 g/dL 12-16 HCT (test code = 4544-3) 42.4 % 37-47 MCV (test code = 787-2) 90.0 fL 82-100 MCH (test code = 785-6) 28.7 pg 27-34 MCHC (test code = 786-4) 31.8 g/dL 31-37 RDW - SD (test code = 41.3 fL 37-55 98755-3) MPV (test code = 60972-3) 10.0 fL 8.8-13.2 Platelet count (test code 260 150- 400 k/uL = 74382-9) Nucleated RBC (test code 0.00 /100 WBC = 86564-9) Neutrophils (test code = 65.7 % 39-69 83553-7) Lymphocytes (test code = 24.7 % 25-45 L 55492-1) Monocytes (test code = 7.3 % 0-10 51845-1) Eosinophils (test code = 1.3 % 0-5 81387-0) Basophils (test code = 0.7 % 0-1 95565-0) Immature granulocytes 0.3 % 0-1 "Immat ure (test code = 43139-7) granul ocytes" (promyelocytes, myelocytes, metamyelocytes) Lab Interpretation (test Abnormal code = 14003-0) Enrique MethodistSmear [id number] 16:06:29 Test Item Value Reference Range Interpretation Comments Platelet slide review (test code Sana adequate = 96860-2) Enlarged platelets (test code = Moderate A 47636-8) Lab Interpretation (test code = Abnormal 08828-4) Nunez MethodistCT Head Wo [id number] 15:54:03Hm Interface, Radiology Results 05/02/2020 3:57 PM CSTEXAMINATION: CT HEAD WO CONTRASTCL INICAL HISTORY: szCOMPARISON: CT head 04/04/2020TECHNIQUE: Noncontrast head CT performed using radiation dose reduction techniques. Technical factors are evaluated and adjusted to ensure appropriatemoderation of exposure. Automated dose management technology is applied to adjust radiation exposure while achieving a diagnostic quality image. FINDINGS:Correlate for small left parietal scalp contusion.No evidence of acute intracranial hemorrhage, mass, mass effect, midline shift, or acute infarct. Ventricles and sulci are normal in appearance for age. Basal cisterns are clear. Calvarium is intact. Scattered calcifications along the midline falx.Orbits are normal in appearance. Trace sinus inflammatory changes. Mastoid air cells are clear. IMPRESSION:1. No CT evidence of acute intracranial abnormality.[id number] Gnosticism Epilepsy/Seizure [id number] 09:01:11EPILEPSY MONITORING UNIT REPORT Patient Name: Heather Hope Date of : 1990 Gender: female Initial Study Start Date: 03/12/2020Initial Study Start Time: 10: Current Study Start Date: 03/15/2020Current Study Start Time: 00:00 Current Study End Date: 03/15/2020Current Study End Time: 11:00 IndicationSeizures Technical SummaryTechnique: Modified international 10/20 system of EEG electrode placement was used Visual Analysis of Ambulatory EEG Monitoring:This electroencephalogram was recorded simultaneously with video throughout the monitoring. TheEEG was visually inspected and analyzed for characterization of the background activity in all awakeand sleep states, abnormal focal and generalized features, [...] determined by visual analysis to be epileptiform wereconsidered to be myogenic, biologic, mechanical, or electrical artifact in origin. Only computer detected events that have been verified by visual inspection to be interictal or ictal epileptiform discharges are reported below and considered in the final report of this monitoring study. Awake Recordings: The occipital dominant rhythm is 7-8 Hz and is poorly sustained. 4-5 Hz and 1.5- 3 Hz activity is present in all regions. 18-22 Hz activity was present in all regions. 1.5-3 Hz activity and spike andsharp wave discharges were recorded in the right [...] extension movements of the right leg. The seizurelasted approximately 2 minutes. The onset of the seizure was associated with an attenuation of the background, followed by rhythmic 4-6 Hz activity in the frontal central regions with higher amplitude on the left side. This evolved and was then symmetric over both hemispheres. Impression: The findingsare consistent with a mild diffuse disturbance in brain function with focal potentially epileptogenic lesions in the right and left frontal central temporal region. One seizure occurred on 03/12/2020 that was clinically a tonic seizure with possible onset in the left frontal central temporal region. ICD-10 Code: [id number] MethodistEpilepsy/Seizure monitoring 2020-04-23 09:00:05EPILEPSY MONITORING UNIT REPORT Patient Name: Heahter Hope Date of : 1990 Gender: female [...] and is poorly sustained. 4-5 Hz and 1.5- 3 Hz activity ispresent in all regions. 18-22 Hz activity was [...] in the frontal central regions with higher amplitudeon the left side. This evolved and was then symmetric over both hemispheres. Impression: The findings are consistent with a mild diffuse disturbance in brain function with focal potentially epileptogenic lesions in the right and left frontal central temporal region. One seizure occurred on 03/12/2020 that was clinically a tonic seizure with possible onset in the left frontal central temporal region. ICD-10 Code: [id number] Gnosticism Epilepsy/Seizure [id number] 08:55:34EPILEPSY MONITORING UNIT REPORT Patient Name: Heather Hope Date of : 1990 Gender: female Initial Study Start Date: 03/12/2020Initial Study Start Time: 10:21 Current Study Start Date: 03/13/2020Current Study Start Time: 00:00 Current Study End Date: 03/13/2020Current Study End Time: 23:59 IndicationSeizures Technical SummaryTechnique: Modified international 10/20 system of EEG electrode placement was used Visual Analysis of Ambulatory EEG Monitoring:This electroencephalogram wasrecorded simultaneously with video throughout the monitoring. The [...] that consisted of real time detection of electr ical events that could be considered epileptiform. All electrographic events identified by the detection program were visually inspected in order to assess the waveform characteristics and significanceof these electrographic events. All intenctal and ictal [...] and is poorly sustained. 4-5 Hz and 1.5- 3 Hz activity is present in all regions. 18-22 Hz activity was present in all regions. 1.5-3 Hz activity and spike and sharp wave discharges were recorded in the right and left frontal central temporal region. Sleep Recordin.5-3 Hz activity and spikeand sharp wave discharges were recorded in the right and left frontal central temporal region. Therewas an accentuation of this activity during sleep. [...] attenuation of the background, followed by rhythmic 4-6Hz activity in the frontal central regions with [...] left frontal central temporal region. ICD-10 Code: Y202Rfyngis Gnosticism Epilepsy/Seizure khjzjtyrpe7751-90-49 08:45:34EPILEPSY MONITORING UNIT REPORT Patient Name: Heather Hope Date of : 1990 Gender: female Initial Study Start Date: 03/12/2020Initial Study Start Time: 10:21 Current Study Start Date: 03/12/2020Current Study Start Time: 10:21 Current Study End Date: 03/12/2020Current Study End Time: 23:59 IndicationSeizures Technical SummaryTechnique: Modified international 10/20 system of EEG electrode placement was used Visual Analysis of Ambulatory EEG Monitoring:This electroencephalogram wasrecorded simultaneously with video throughout the monitoring. The [...] that consisted of real time detection of electr ical events that could be considered epileptiform. All electrographic events identified by the detection program were visually inspected in order to assess the waveform characteristics and significanceof these electrographic events. All intenctal and ictal [...] and is poorly sustained. 4-5 Hz and 1.5- 3 Hz activity is present in all regions. 18-22 Hz activity was present in all regions. 1.5-3 Hz activity and spike and sharp wave discharges were recorded in the right and left frontal central temporal region. Sleep Recordin.5-3 Hz activity and spikeand sharp wave discharges were recorded in the right and left frontal central temporal region. Therewas an accentuation of this activity during sleep. [...] the right leg. The seizure lasted approximately 2minutes. The onset of the seizure was associated [...] left frontal central temporal region. ICD-10 Code: N366Dfxucwq MethodistDouble-stranded DNA (dsDNA) antibodies, Wofxrfchj7287-69-73 13:15:26 Test Item Value Reference Range Interpretation Comments DNA Ab screen (test code = 1297) Not Detected Not-Detected Rolfe GnosticismUrine kmihszj1392-29-55 14:33:04 Test Item Value Reference Range Interpretation Comments Urine culture Mixed prem Specimen isolate (test 10-5 col/cc InformationSpe [facility] code = 00209-8) Source: Urin eSpecimen Site: Clean cat ch Nunez MethodistRibonucleic antibody (COMMUNITY MENTAL HEALTH WORKER)2020-04-06 18:25:47 Test Item Value Reference Range Interpretation Comments Ribonucleic antibody <0.2 0.0- 0.9 AI (COMMUNITY MENTAL HEALTH WORKER) (test code = 09237-1) Ribonucleic antibody Negative AI Anti-ri bonucleic (COMMUNITY MENTAL HEALTH WORKER) interp (test protein ( anti-COMMUNITY MENTAL HEALTH WORKER) code = 5267) antibodies are typically found in patients with m ixed connective tiss ue disease, but ca n also be seen in christin ents with systemic l upus erythematosus ( SLE) or systematic scle rosis. Rolfe MethodistJo-1 rgtwvmwg0202-09-55 18:25:46 Test Item Value Reference Range Interpretation Comments Bernarda-1 antibody (test <0.2 0.0- 0.9 AI code = 13701-9) Bernarda-1 antibody interp Negative Anti-Bernarda -1 antibody is (test code = 5263) predomina ntly found in patients with polymyositis, e specially for those with interstitial pu lmonary fibrosis. It ca n also be found in patien ts with dermatomyositis . Rolfe MethodistScl-70 msoeslbw8848-92-58 18:25:46 Test Item Value Reference Range Interpretation Comments Scleroderma SCL-70 Ab <0.2 0.0- 0.9 AI (test code = 32830-5) Scl-70 antibody interp Negative AI Anti- Scl-70 (test code = 5268) (topoisom erase I) antibodies are found in patients with s ystemic sclerosis (SSc or scleroderma), a nd have been reported t o be predictive of d iffuse cutaneous invol vement. Anti-Scl-70 ant ibodies may also be pre sent in patients with s ystemic lupus erythemat osus (SLE). Nunez MethodistSS-A mxaolhfg0945-79-95 18:25:46 Test Item Value Reference Range Interpretation Comments Sjogren's SS-A <0.2 0.0- 0.9 AI antibody (test code = 45592-6) SS-A antibody interp Negative AI SS-A an tibody is (test code = 2235) sensitive for Sjogren's syndrome, but m ay also be positive with s ystemic lupus erythemat osus (SLE), and syst emic sclerosis. Rolfe MethodistCentromere mlsxuhma9875-27-48 18:25:45 Test Item Value Reference Range Interpretation Comments Centromere antibody <0.2 0.0- 0.9 AI (test code = 8068-9) Centromere antibody Negative AI Anti-sae tromere interp (test code = antibodi es are found 41870-9) in patients wit h systemic sclero sis (SSc or sclerod sb), especially for those with limited cu taneous or CREST syndro me. Anti-centromere antibodies may also be found in patien ts with other rheumatic or connective tiss ue diseases. Rolfe MethodistSmith zjhvbivo5523-80-05 18:25:45 Test Item Value Reference Range Interpretation Comments Matthew antibody (test <0.2 0.0- 0.9 AI code = 03252-3) Matthew antibody Negative AI Anti-Matthew an tibodies interp (test code = occurs i n 30-35% of 5269) systemic lupus erythematosus ( SLE) cases, but is v gilbert specific for SL E. It may also present in mixed connective-tiss ue disease (MCTD). Rolfe MethodistSS-B jyflvjbb1168-64-88 18:25:44 Test Item Value Reference Range Interpretation Comments Sjogren's SS-B 0.6 0.0- 0.9 AI antibody (test code = 3001) SS-B antibody interp Negative AI SS-B/La antibody is seen (test code = 2237) in patien ts with Sjogren syndrome, but m ay also be positive with s ystemic lupus erythemat osus (SLE), and syst emic sclerosis. Rolfe MethodistKeppra (Levetiracetam) glefk0193-81-40 17:50:04 Test Item Value Reference Interpretation Comments Range Levetiracetam 23 ug/mL 12-46 INTERPRETIVE I NFORMATION: (test code = Keppra 4478-4) (Levetiracetam) Therapeutic Range: 12-46 u g/mL Toxic: Not wel l EstablishedPhar macokinetics of levetiracetam a re affected by renal function. Adverse effects may include andi nolence, weakness, heada justus and vomiting.This l evetiracetam (Keppra) immuno assay uses the Crono reagents, which has known cross -reactivity with [...] to determ ine drug concentrations. Performed By: [facility] [address] [place], [place] [address]Hkcumudfro Director: Gege Pierson MD Rolfe NancyistPOC nokfqfm8459-58-50 17:38:16 Test Item Value Reference Range Interpretation Comments POC glucose (test code = 102 mg/dL 65-99 H Ope rator Name: [id number]) Gerber Coulter ice ID: [id number] Lab Interpretation (test Abnormal code = 28043-6) Rolfe MethodistHomocystine, rrmzwc4518-27-87 18:55:23 Test Item Value Reference Range Interpretation Comments Homocysteine (test 6.7 umol/L 0-15 The risk for coronary code = 54421-9) vascular dis ease increases progressively w ith homocysteine concentration. A 3.4 times greater r isk is associated with a homocysteine concentration o f greater than 15.8 umol/L as carlin red to a concentration below 14.1 umol/L. S pecimen is slightly hem olyzed. Interpret resu lts accordingly. Rolfe MethodistPotassium ghnol8026-00-04 18:49:08 Test Item Value Reference Range Interpretation Comments Potassium (test code = 2823-3) 3.7 3.5- 5.0 mEq/L Rolfe MethodistVitamin D 25 hydroxy fukmy4345-49-67 15:53:37 Test Item Value Reference Range Interpretation Comments Vitamin D, 25-hydroxy 12.1 ng/mL 30-150 L This a ssay reports (test code = 1988-08) the sum of 25-hydroxy vandana min D3 [...] hods. Lab Interpretation Abnormal (test code = 27374-6) Nunez MethodistEC 12 mckh0441-99-87 13:34:29 Test Item Value Reference Range Interpretation Comments Ventricular rate (test 77 code = 253) Atrial rate (test code 77 = 255) GA interval (test code 154 = 266) QRSD [...] of 12-NOV-2019 21:10,-No significant change was found- Nunez MethodistEEG (routine)2020-04-05 11:50:53VIDEO-EEG RECORDING AWAKE & ASLEEP. Date [...] are captured. Jojo Cruz MD ICD-10 Code: T521Uzgquei MethodistSyphilis total dupsolhr5594-25-93 10:02:20 Test Item Value Reference Range Interpretation Comments Syphilis total Non-reactive Non-reactive No serologica l antibody (test evidence of code = 6194) syphilis infect ion. LUIS MIGUEL (test code = Unable to perform LUIS MIGUEL) testing, specimen is _HEMOLYZED___. Recollect requested for __K__ (tests). __[facility] (name/location) notified by ___JT_ (tech ID) at __ 04/05/2020 07:01 __ (date/time). Credit issued.Unable to perform testing, specimen is _HEMOLYZED___. Recollect requested for _HCYT (tests). __[facility] (name/location) notified by ___JT_ (tech ID) at __ 04/05/2020 09:26 __ (date/time). Credit issued. Nunez MethodistRheumatoid xpdcvv6297-88-22 09:01:34 Test Item Value Reference Range Interpretation Comments Rheumatoid factor (test <10 0- 13 IU/mL code = 56283-9) LUIS MIGUEL (test code = LUIS MIGUEL) Unable to perform testing, specimen is _HEMOLYZED___. Recollect requested for __K__ (tests). __[facility] (name/location) notified by ___JT_ (tech ID) at __ 04/05/2020 07:01 __ (date/time). Credit issued. Nunez MethodadrianoVitamin B12 enrxv8222-21-67 06:58:42 Test Item Value Reference Range Interpretation Comments Vitamin B12 (test 739 pg/mL 211-946 Significan t overlap code = 2132-9) exists betwee n normal and deficiency states.However, most patients with deficiencies wi ll have Serum B12 <2 00 pg/mL. Nunez MethodistFolate eeihp3328-94-36 06:58:42 Test Item Value Reference Range Interpretation Comments Folate (test code = 2284-8) 14.0 ng/mL 4.8-24.2 Nunez MethodistMagnesium mygzf9995-88-64 06:52:05 Test Item Value Reference Range Interpretation Comments Magnesium (test code = 43937-8) 1.8 mg/dL 1.6-2.6 Enrique CruzistT4, aydc5547-35-71 06:52:05 Test Item Value Reference Range Interpretation Comments T4, free (test code = 3024-7) 1.1 ng/dL 0.9-1.7 Nunez GnosticismThyroid stimulating uwnvywo8468-89-46 06:52:05 Test Item Value Reference Range Interpretation Comments TSH (test code = 3016-3) 1.26 0.27- 4.20 uIU/mL Enrique CruzEqiomprdyK18304-19-42 06:52:05 Test Item Value Reference Range Interpretation Comments T3 (test code = 3053-6) 89 ng/dL 80-200 Enrique PiedraC-reactive jmpszpn0583-04-03 06:52:05 Test Item Value Reference Range Interpretation Comments CRP (test code = 1987-5) <0.30 0-0.5 Enrique PiedraHIV Ag/Ab udwczwtfpkm3169-93-84 06:48:46 Test Item Value Reference Range Interpretation Comments HIV Ag/Ab combination (test code Non-reactive Non-reactive = 5299) Nunez Hermiloedimentation ragr0786-70-74 22:23:01 Test Item Value Reference Range Interpretation Comments Sedimentation rate (test code = 6 0- 20 mm/hr 32497-3) Enrique Bowman drugs of abuse nfqemp0929-38-99 21:28:59 Test Item Value Reference Interpretation Comments Range Amphetamine screen, Negative urine (test code = 3349-8) Barbiturate screen, Negative urine (test code = 3377-9) Benzodiazepine Positive A screen, urine (test code = 3390-2) Cocaine screen, Negative urine (test code = 3397-7) Methadone Negative metabolite (EDDP), urine (test code = 59177-3) Opiates screen, Negative urine (test code = 3879-4) Oxycodone screen, Negative urine (test code = 29757-7) Phencyclidine Negative screen, urine (test code = 3936-2) Tricyclic screen, Negative urine (test code = 55603-8) Cannabinoid screen, Negative Drug scr een minimum [...] ired. Lab Interpretation Abnormal (test code = 50761-8) Rolfe MethodistComprehensive metabolic iknyf0468-03-62 21:27:39 Test Item Value Reference Range Interpretation Comments Sodium (test code = 138 135- 148 mEq/L 2951-2) Potassium (test code = 3.6 3.5- 5.0 mEq/L 2823-3) Chloride (test code = 105 98- 112 mEq/L 5-0) CO2 (test code = 2027-) 22 24- 31 mEq/L L Anion gap (test code = 11@ANIO 7- 15 mEq/L 60630-0) BUN (test code = 3094-0) 7 mg/dL 6-20 Creatinine (test code = 0.46 mg/dL 0.5-0.9 L 2160-0) Glucose (test code = 96 mg/dL 65-99 2345-7) Calcium (test code = 9.2 mg/dL 8.3-10.2 31318-9) Protein (test code = 7.1 g/dL 6.3-8.3 -[place] n 2885-2) 4.6-7.0 g/dL1 week 4.4-7 .6 g/dL7 months-1y ear 5.1-7 .3 g/dL1-2 years 5.6-7 .5 g/dL>3 years 6.0-8 .0 g/iI10-494 6.3-8 .3 g/dL Albumin (test code = 3.8 g/dL 3.5-5 175-7) A/G ratio (test code = 1.2 0.7-3.8 1759-0) Alkaline phosphatase 64 U/L 35-104 (test code = 6768-6) AST (test code = 1920-8) 20 U/L 10-35 ALT (test code = 1742-6) 14 U/L 5-50 Total bilirubin (test 0.4 mg/dL 0-1.2 code = 1974-2) Lab Interpretation (test Abnormal code = 78456-2) Rolfe MethodistLactic acid level, SEPSIS - Now and repeat 2x every 3 hours 2020-04-04 21:27:38 Test Item Value Reference Range Interpretation Comments Lactic acid (test code = 75869-5) 1.1 mmol/L 0.5-2.2 [facility]Ph[facility] dozut3621-42-83 21:27:37 Test Item Value Reference Range Interpretation Comments Phosphorus (test code = 2777-1) 3.7 mg/dL 2.4-4.5 [facility] iesshlbr8101-74-18 21:21:43 Test Item Value Reference Range Interpretation Comments WBC (test code = 15253-7) 7.66 4.50- 11.00 k/uL RBC (test code = 86336-7) 4.23 m/uL 4.2-5.5 HGB (test code = 718-7) 12.2 g/dL 12-16 HCT (test code = 4544-3) 36.8 % 37-47 L MCV (test code = 787-2) 87.0 fL 82-100 MCH (test code = 785-6) 28.8 pg 27-34 MCHC (test code = 786-4) 33.2 g/dL 31-37 RDW - SD (test code = 78189-8) 40.3 fL 37-55 MPV (test code = 17465-2) 10.1 fL 8.8-13.2 Platelet count (test code = 247 150- 400 k/uL 99027-1) Nucleated RBC (test code = 0.00 /100 WBC 96644-6) Lab Interpretation (test code = Abnormal 46553-1) Rolfe MethodistProlactin buedh7056-88-21 21:11:11 Test Item Value Reference Range Interpretation Comments Prolactin (test code = 2842-3) 13 ng/mL 5-23 Rolfe MethodistCRITICAL RSHI8386-53-73 18:48:10BMax gleason MD 04/20/2020 3:37 PMCritical CarePerformed by: Lila ByersAuthorized by: Max Ron MD Critical care provider statement: Critical care time (minutes): 20 Critical care was necessary to treat or prevent imminent or life- threatening deterioration of the following conditions: [employer] VAULT failure or compromise Critical care was time [...] care for this patient from another provider.: [facility] Brain Metabolic Cjcw0085-39-11 14:42:07Hm Interface, Radiology Results - 03/30/2020 2:45 [...] interictal study.2.Diffuse cerebellar hypometabolism suggests a pharmacologic effect.[facility]-[id number] MethodistContinuous EEG hubsxlyvrn4046-13-14 17:34:53CONTINUOUS VIDEO-EEG MONITORING REPORT Patient Name: Heather [...] No seizures occurred. ICD-10 Code: R56.9[place] MethodistANA spetl1954-77-95 13:12:21 Test Item Value Reference Range Interpretation Comments MARCELINO titer (test code = 81203-2) 1:160 Not-Detected A MARCELINO pattern (test code = 76259-3) Homogeneous Not-Detected A Lab Interpretation (test code = Abnormal 21463-1) Enrique VifsqzpehOXW6561-02-02 13:08:33 Test Item Value Reference Range Interpretation Comments MARCELINO screen (test code Positive Negative A Test p erformed using = 550) NOVA TrueAccorde DAPI MARCELINO kit (Indirect Immunofluoresce nce Assay) for Anti -Nuclear Antibody on Fetch TechnologiesA-Lyser 16 0 Analyzer. Lab Interpretation Abnormal (test code = 74308-0) Enrique MethodistManual qbqhklzvoyyy0088-97-64 08:57:11 Test Item Value Reference Range Interpretation Comments Manual differential (test code = PERFORMED 32642-7) Neutrophils (test code = 51.0 % 39-69 77387-6) Lymphocytes (test code = 34.0 % 25-45 44618-2) Monocytes (test code = 39814-2) 13.0 % 0-10 H Eosinophils (test code = 2.0 % 0-5 28970-7) Basophils (test code = 58993-4) 0.0 % 0-1 Metamyelocytes (test code = 0 % 740-1) Promyelocytes (test code = 0 % 783-1) Platelet slide review (test code Sana adequate = 45575-1) Anisocytosis (test code = 702-1) Moderate Ovalocytes (test code = 774-0) Moderate Enlarged platelets (test code = Moderate A 57868-0) Lab Interpretation (test code = Abnormal 39261-4) Enrique MethodistContinuous EEG yxwhqjziuf3205-48-27 07:42:19CONTINUOUS VIDEO- EEG MONITORING REPORT Patient Name: [...] independently. No seizures occurred. ICD-10 Code: R56.9[place] Gnosticism Continuous EEG yqlkflbrmi9607-49-85 07:19:24 CONTINUOUS VIDEO-EEG MONITORING REPORT Patient Name: [...] independently. No seizures occurred. ICD-10 Code: R56.9[place] MethodistEEG (routine) - Baseline [id number] 06:43:32EEG RECORDING AWAKE & ASLEEP - Baseline [...] with the above findings. Toya Rojo MethodistFerritin vpvlf7443-73-39 07:54:01 Test Item Value Reference Range Interpretation Comments Ferritin level (test code = 2276-4) <13 13-150 A Lab Interpretation (test code = Abnormal 31032-0) Nunez MethodistTotal iron binding sczmiprr2891-52-62 07:50:12 Test Item Value Reference Range Interpretation Comments Iron level (test code = 2498-4) 20 ug/dL 37-145 L Iron binding capacity (test code = 335 ug/dL 178-005 0311-7) % Saturation (test code = 2502-3) 6.0 % 15-38 L Lab Interpretation (test code = Abnormal 37045-6) Enrique MethodistCortisol level, ydbcmr9402-50-47 20:48:37 Test Item Value Reference Range Interpretation Comments Cortisol, random 2 ug/dL Reference R anges are not (test code = 2143-6) establi shed for non-timed Cortisol levels .Reference Range for Timed Cortisol: 6 - 10 AM 6 - 18 ug/dl 4 - 8 PM 3 - 11 ug/ dl Enrique CruzistCreatine kinase, total (CPK)2019-11-12 20:42:35 Test Item Value Reference Range Interpretation Comments Creatine kinase (test code = 2157-6) 56 U/L 26-192 Nunez MethodistCT Cervical Spine Wo Aterftiu1667-17-24 18:17:20Hm Interface, Radiology Results 11/12/2019 6:20 PM [...] fracture or subluxation identified in the cervical spine.[facility]-[id number] MethodistCT Maxillofacial Wo Vagepnho9812-38-10 18:15:46Hm Interface, Radiology Results Incoming 11/12/2019 6:18 PM CDTEXAMINATION: CT MAXILLOFACIAL WO [...] soft tissues are unremarkable.The paranasal sinuses are clear.[facility]-[id number] Gnosticism Alcohol level, pxidr9000-13-70 18:06:03 Test Item Value Reference Range Interpretation Comments Alcohol percent None Detected % Normal (test code = None Detec tedLegal 5643-2) Intoxication in [place] 80 mg/dL (0.08% ) - Whole BloodToxi c Concentration 200 mg/dL (0.2%)Potential ly Fatal 350 - 500 mg/dL (0.35 - 0 .5%) [facility] 1 Vw Xlreuxwm5919-12-37 17:37:03Hm Interface, Radiology Results Incoming - 11/12/2019 5:40 PM CDTEXAMINATION: XR CHEST 1 VW PORTABLECLINICAL HISTORY: SOBXR CHEST 1 VW PORTABLE images are submittedCOMPARISON: NONEFINDINGS:The cardiac silhouette is normal in size. The pulmonary vasculature is within normal limits. The lung zones have no focal area of consolidation. There is no pleural effusion or pneumothorax.IMPRESSION:1. Thereis no acute cardiopulmonary disease.STJO-[id number] MethodisthCG qualitative, urine pgrard3779-00-86 15:26:18 Test Item Value Reference Range Interpretation Comments hCG qualitative, Negative Sensitivity of HCG test: urine (test code = 25 mIU/mL 2106-3) Rolfe MethodistRPR Kvmnyexmfss5991-57-54 16:47:08 Test Item Value Reference Range Interpretation [...] = 06-14-2020 N Expiration Dt) Thyroid Stimulating Tcqeean6573-34-86 06:31:44 Test Item Value Reference Range Interpretation Comments TSH (test code = TSH) 3.830 mIU/mL 0.270-4.200 Lipid Ygkgb1381-72-78 06:24:40 Test Item Value Reference Range Interpretation Comments Cholesterol Total 152 mg/dL 0-200 RISK OF HE ART (test code = DISEASEPublishe d by Cholesterol Total) [employer] Marcelino lyte Optimal Borderl ine [...] LDL/HDL Ratio=L DL Calc/HDL Chol Urine Drug Zwnhrt2216-23-77 21:53:06 Test Item Value Reference Range Interpretation [...] if desired . Urinalysis with Culture, if enyvbztst4143-11-89 21:40:53 Test Item Value Reference Range Interpretation [...] Indicated Not Indicated Micro Ind?) Comprehensive Metabolic Ivriy4198-99-02 21:34:15 Test Item Value Reference Range Interpretation [...] = A/G 1.6 ratio N Ratio) Alcohol Zrkze8973-59-49 21:34:15 Test Item Value Reference Range Interpretation Comments Ethanol Level (test <0.00 g/dL 0.00-0.01 Intoxica vandana 0.080 g/dL code = Ethanol or more Level) Ethanol Inst (test <0 N code = Ethanol Inst) Comprehensive Metabolic Oklng4598-74-56 21:34:15 Test Item Value Reference Range Interpretation [...] National Kidney Foundation, http://nkdep.ni h.gov Comprehensive Metabolic Yugbq4580-98-40 21:34:15 Test Item Value Reference Range Interpretation [...] ag e have not been validated by [facility] MDRD study and should be [...] account, if the information is provided. If e race is not provided, and t he patient is -Yanira n, multiply by 1.2 12. If sex is not provided, and t he patient is fema le, multiply by 0.7 42. Results for pat ients <18 years of ag e have not been validated by [facility] MDRD study and should be interpreted wit h caution. eGFR R esult Interpretation: eGFR > or = 60 is in the Normal RangeeGF R < 60 may mean kid shannan diseaseeGFR < 1 5 may mean kidney failure Rang es recommended by the National Kidney Foundation, http://nkdep.ni h.gov Complete Blood Count with Uewjcdtjvsfq2722-63-12 21:15:24 Test Item Value Reference Range Interpretation [...] code = IPF) 0 % N Automated Yohkphzrynro3278-80-71 21:15:24 Test Item Value Reference Range Interpretation Comments Neutro Auto (test code = Neutro 54.3 % 36.0-70.0 Auto) Lymph Auto (test code = Lymph Auto) 32.3 % 12.0-44.0 [place] Auto (test code = [place] Auto) 11.1 % 0.0-11.0 H Eos, Auto (test code = Eos, Auto) 1.3 % 0.0-7.0 Basophil Auto (test code = Basophil 0.7 % 0.0-2.0 Auto) Neutro Absolute (test code = Neutro 6.2 x10 1.6-7.4 Absolute) Lymph Absolute (test code = Lymph 3.71 x10 .50-4.60 Absolute) [place] Absolute (test code = [place] 1.28 x10 .00-1.20 H Absolute) Eos Absolute (test code = Eos 0.15 x10 0.00-0.74 Absolute) Baso Absolute (test code = Baso 0.08 x10 0.00-0.21 Absolute) IG Fbixe0382-50-79 21:15:24 Test Item Value Reference Range Interpretation Comments IG (test code = IG) 0.3 % 0.0-5.0 IG Abs (test code = IG Abs) 0 x10 N HCG Qualitative Hojil5013-67-33 20:45:17 Test Item Value Reference Range Interpretation [...] 72 hours. Lot # (test code = [id number] N Lot #) Expiration Dt (test 2020-12-12 N code = Expiration Dt) Neg Control (test Negative code = Neg Control) Pos Control (test Positive code = Pos Control) Internal QC (test Acceptable code = Internal QC) RPR Zxsctcdoicd5890-40-65 12:07:58 Test Item Value Reference Range Interpretation [...] = 04-14-2020 N Expiration Dt) Thyroid Stimulating Xsaqnby2748-01-85 07:59:52 Test Item Value Reference Range Interpretation Comments TSH (test code = TSH) 0.717 mIU/mL 0.270-4.200 Lipid Ueqbo6406-26-91 07:52:46 Test Item Value Reference Range Interpretation Comments Cholesterol Total 141 mg/dL 0-200 RISK OF HE ART (test code = DISEASEPublishe d by Cholesterol Total) [employer] Marcelino lyte Optimal Borderl ine [...] LDL/HDL Ratio=L DL Calc/HDL Chol Urine Drug Rylhcd6942-22-76 15:27:40 Test Item Value Reference Range Interpretation [...] matory test if desired . Comprehensive Metabolic Jyvxr3824-00-03 15:15:20 Test Item Value Reference Range Interpretation [...] A/G 1.9 ratio N Ratio) Comprehensive Metabolic Iyshq1096-43-87 15:15:20 Test Item Value Reference Range Interpretation [...] the National Kidney Foundation, http://nkdep.ni h.gov Alcohol Mcxzt1658-68-19 15:15:20 Test Item Value Reference Range Interpretation Comments Ethanol Level (test <0.00 g/dL 0.00-0.01 Intoxica vandana 0.080 g/dL code = Ethanol or more Level) Ethanol Inst (test <0 N code = Ethanol Inst) Comprehensive Metabolic Yomdw5991-19-37 15:15:20 Test Item Value Reference Range Interpretation [...] the National Kidney Foundation, http://nkdep.ni h.gov Urinalysis Nbipmfxnpyf5657-26-29 15:11:20 Test Item Value Reference Range Interpretation Comments UA WBC (test code = UA WBC) 6-10 0-5 A UA RBC (test code = UA RBC) 0-5 0-5 UA Bacteria (test code = UA Moderate A Bacteria) UA Squam Epithelial (test code = UA TNTC A Squam Epithelial) UA Mucous (test code = UA Mucous) Few A Urinalysis with Microscopic if hlaarcqdr1817-15-52 14:42:58 Test Item Value Reference Range Interpretation [...] GL_SJM_UA_MICRO _IN D Complete Blood Count with Assyrpqfbemn4554-64-09 14:37:26 Test Item Value Reference Range Interpretation [...] code = IPF) 0 % N Automated [id number] 14:37:26 Test Item Value Reference Range Interpretation Comments Neutro Auto (test code = Neutro 65.8 % 36.0-70.0 Auto) Lymph Auto (test code = Lymph Auto) 25.5 % 12.0-44.0 [place] Auto (test code = [place] Auto) 7.3 % 0.0-11.0 Eos, Auto (test code = Eos, Auto) 0.7 % 0.0-7.0 Basophil Auto (test code = Basophil 0.5 % 0.0-2.0 Auto) Neutro Absolute (test code = Neutro 6.0 x10 1.6-7.4 Absolute) Lymph Absolute (test code = Lymph 2.34 x10 .50-4.60 Absolute) [place] Absolute (test code = [place] .67 x10 .00-1.20 Absolute) Eos Absolute (test code = Eos 0.06 x10 0.00-0.74 Absolute) Baso Absolute (test code = Baso 0.05 x10 0.00-0.21 Absolute) IG [id number] 14:37:26 Test Item Value Reference Range Interpretation Comments IG (test code = IG) 0.2 % 0.0-5.0 IG Abs (test code = IG Abs) 0 x10 N HCG Qualitative [id number] 14:34:08 Test Item Value Reference Range Interpretation [...] 72 hours. Lot # (test code = [id number] N Lot #) Expiration Dt (test 2020-03-14 N code = Expiration Dt) Neg Control (test Negative code = Neg Control) Pos Control (test Positive code = Pos Control) Internal QC (test Acceptable code = Internal QC) DRUGS OF ABUSE SCREEN [id number] 17:11:00 Test Item Value Reference Range Interpretation [...] = [place]) concentrati on: 300 ng/mL URINALYSIS [id number] 17:08:00 Test Item Value Reference Range Interpretation [...] (test code = MOD NONE BACU) URINALYSIS [id number] 17:00:00 Test Item Value Reference Range Interpretation [...] (test code = NONE BACU) HCG SERUM [id number] 16:52:00 Test Item Value Reference Range Interpretation Comments HCG SERUM QUAL (test code = HCGQL) NEGATIVE NEGATIVE - CT HEAD/BRAIN W/O [id number] 16:51:00 FAX: Theresa Fields MD [place]: St: REG Name: HEATHER HOPE [facility] : 1990 Age/S: 28/F [address] [facility] Unit: [id number] Loc: [place], [place] Phys: [place] [id number] Acct: [id number] Dis Date: Status: REG ER PHONE #: [phone] Exam Date: 02/23/2019 1642 FAX #: [phone] Reason: SEIZURE EXAMS: CPT CODE: [id number] CT HEAD/BRAIN W/O CONT 10406 Dictation location: U19. CT HEAD WITHOUT CONTRAST. [...] MD Technologist: HEATHER DICKSON Trnscrd Dt/Tm: 02/23/2019 (9785) [id number] Orig Print D/T: S: 02/23/2019 (1654 PAGE 1 Signed ReportBASIC METABOLIC [id number] 16:31:00 Test Item Value Reference Range Interpretation [...] CA) 8.8 mg/dl 8.0-10.5 N BASIC METABOLIC [id number] 16:26:00 Test Item Value Reference Range Interpretation [...] code = CA) mg/dl 8.0-10.5 CBC W/AUTO [id number] 16:15:00 Test Item Value Reference Range Interpretation [...] 3-60 N code = VLDL) RAPID PLASMA [id number] 10:31:00 Test Item Value Reference Range Interpretation Comments RAPID PLASMA REAGIN (test code = Nonreactive Nonreactive RPR) GLYCOSYLATED HEMOGLOBIN (HA1C)2018-12-07 10:05:00 Test Item Value Reference Range Interpretation Comments GLYCOSYLATED HEMOGLOBIN (HA1C) 5.8 % TOT HB 4.5-6.2 N (test code = GLYHGB) [id number] 15:31:00 Test Item Value Reference Range Interpretation Comments ACETAMINOPHEN (test < 1 MCG/ML 10-30 L Acetamin ophen is code = ACET) possibly toxic at levels of: 1. m ore than 150 MCG/ML 4 hours post kaylin stion. 2. more than 5 0 MCG/ML 12 hours post ingestion. [id number] 15:31:00 Test Item Value Reference Range Interpretation Comments SALICYLATE (test code = < 3 MG/DL 0-20 N Refe rence Range: BOSSMAN) Analgesic...... ...... ...... < 10 mg /dl Therapeutic.... ...... ...... 15-20 mg /dl Mild Toxicity....... ...... . > 30 mg/dl Severe Toxicity....... ..... > 60 mg/dl UA RFLX [id number] 14:18:00 Test Item Value Reference Range Interpretation [...] DIPSTICK (test code = 8.0 5.5-7.0 H MAYR) UA PROTEIN DIPSTICK (test NEGATIVE mg/dL NEGATIVE code = PROU) UA UROBILINOGEN DIPSTICK NORMAL mg/dL NORMAL (test code = URO) UA NITRITE DIPSTICK (test NEGATIVE NEGATIVE code = KIET) UA LEUKOCYTE ESTERASE NEGATIVE NEGATIVE DIPSTICK (test code = LEUU) UA COMMENT (test code = COMU) VOLUME 10-12 ML URINE SPECIMEN DESCRIPTION Clean Catch (test code = UASPEC) UA [id number] 14:18:00 Test Item Value Reference Range Interpretation Comments UA WBC (test code = WBCU) < 10 #/hpf <10 UA RBC (test code = RBCU) 0-2 #/hpf NONE SEEN A UA BACTERIA (test code = BACU) RARE #/hpf NONE SEEN UA SQUAMOUS CELLS (test code = 0 - 20 #/lpf <100 SQU) UA MUCUS (test code = MUCU) 1+ #/lpf NONE SEEN BASIC METABOLIC [id number] 14:16:00 Test Item Value Reference Range Interpretation [...] 9.4 MG/DL 8.7-10.5 N CA) HEPATIC FUNCTION [id number] 14:16:00 Test Item Value Reference Range Interpretation [...] 50-136 N TOTAL (test code = ALKP) [id number] 14:16:00 Test Item Value Reference Range Interpretation Comments CK (test code = CKT) 87 Units/L 26-192 N [id number] 14:16:00 Test Item Value Reference Range Interpretation Comments ALCOHOL (test code = < 3 MG/DL 0-10 N 0 - 10: Should be ALC) interpreted as NEGATIVE. 11 - 50: None to mild euphoria. 51 - 100: Mild influence on vision and dark adapta tion. > 80: Legal intoxication; D epression of [employer]; Increasing degr ee of poisoning. > 400: Fatalities repo rted. Results are for medical purposes only a nd not forlegal or emp loyment evaluative purp oses. BASIC METABOLIC [id number] 14:09:00 Test Item Value Reference Range Interpretation [...] 9.4 MG/DL 8.7-10.5 N CA) HEPATIC FUNCTION [id number] 14:09:00 Test Item Value Reference Range Interpretation [...] TOTAL (test Units/L 50-136 code = ALKP) [id number] 14:09:00 Test Item Value Reference Range Interpretation Comments CK (test code = CKT) Units/L 26-192 [id number] 14:09:00 Test Item Value Reference Range Interpretation Comments ALCOHOL (test code = ALC) MG/DL 0-10 LACTIC ACID [id number] 13:50:00 Test Item Value Reference Range Interpretation Comments LACTIC ACID POC 0.97 MMOL/L 0.90-1.70 N Performed by certified (test code = LACTP) 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 Results of scre en may not be usedin crimi nal justice, job performance or professionalcre dential review, or infa nt custody issues. Negativ e [place] Level ng/ml ------- ----- Cocaine 300 Methamp hetamine (Ecstacy) 500 Cannabinoids (THC) 50 Amphetamine 1000 Barbiturate s 200 Benzodia zepines 200 Opiat es 300 Ph encyclidine (PCP) 25 UR HCG [id number] 13:39:00 Test Item Value Reference Range Interpretation [...] using aquantitative h CG assay. UA RFLX [id number] 13:38:00 Test Item Value Reference Range Interpretation [...] Clean Catch (test code = UASPEC) UA [id number] 13:38:00 Test Item Value Reference Range Interpretation Comments UA WBC (test code = WBCU) #/hpf <10 UA RBC (test code = RBCU) #/hpf NONE SEEN UA SQUAMOUS CELLS (test code = SQU) #/lpf <100 UA RFLX [id number] 13:38:00 Test Item Value Reference Range Interpretation [...] Clean Catch (test code = UASPEC) UA [id number] 13:38:00 Test Item Value Reference Range Interpretation Comments UA WBC (test code = WBCU) #/hpf <10 UA RBC (test code = RBCU) #/hpf NONE SEEN UA SQUAMOUS CELLS (test code = SQU) #/lpf <100 CBC W/AUTO [id number] 13:26:00 Test Item Value Reference Range Interpretation [...] = BA#) 0.05 x10 3/uL 0.0-0.2 N [id number] 19:07:00 Test Item Value Reference Interpretation Comments Range LEVETIRACETAM 28.7 ug/mL 10.0-40.0 This test was developed and (test code = its performance LEVTAM) characteristics determined by [facility]. It has not been cleared orappro froylan by the Food and Drug Administration. Performed At: [facility] [place], [place] [id number] ra Larissa MENDOZA Ph:[phone] BASIC METABOLIC [id number] 04:58:00 Test Item Value Reference Range Interpretation [...] code = 8.9 MG/DL 8.7-10.5 N CA) [id number] 04:58:00 Test Item Value Reference Range Interpretation Comments MAGNESIUM (test code = MAG) 1.9 MG/DL 1.8-2.4 N CBC W/AUTO [id number] 04:08:00 Test Item Value Reference Range Interpretation [...] 0.0-0.2 N NRBC#) - MRI BRAIN W/O [id number] 13:51:00 Patient Name: HEATHER HOPE TIERRA Unit No: [id number] EXAMS: CPT CODE: [id number] MRI BRAIN W/O CONTRAST 76486 Reason: sz INDICATION: Seizure COMPARISON: CT brain, [...] MD Technologist: Andre Self MRI Trscrpt Dt/ (1688)[id number] Orig Print D/T: S: 09/17/2018 (6795) [facility] CntNAME: HEATHER HOPE NOVEMBER [address] [facility] PHYS: [place] [address] : 1990 AGE: 27 SEX: F LOC: D.D313 1 PHONE #: [phone] EXAM DATE: 09/17/2018 STATUS: ADM IN FAX #: RAD NO: DC Dt: PAGE 1 Signed [id number] 07:25:00 Test Item Value Reference Range Interpretation Comments PROLACTIN (test code = 24.6 ng/mL 4.8-23.3 H Perfo rmed At: [facility] PROLAC) [facility] [id number] Kyle L MD Ph:[phone] UA RFLX MICROSCOPIC [id number] 19:02:00 Test Item Value Reference Range Interpretation [...] UACULT) URINE SOURCE: Clean CatchUA RFLX MICROSCOPIC [id number] 18:56:00 Test Item Value Reference Range Interpretation [...] (test code = UACULT) URINE SOURCE: Clean [id number] 15:56:00 Test Item Value Reference Range Interpretation Comments CK (test code = CKT) 34 Units/L 26-192 N BASIC METABOLIC [id number] 12:57:00 Test Item Value Reference Range Interpretation [...] code = 8.6 MG/DL 8.7-10.5 L CA) [id number] 12:57:00 Test Item Value Reference Range Interpretation Comments CK (test code = CKT) 32 Units/L 26-192 N CBC W/AUTO [id number] 12:33:00 Test Item Value Reference Range Interpretation [...] 3/uL 0.0-0.2 N NRBC#) TOTAL IRON BINDING [id number] 05:50:00 Test Item Value Reference Range Interpretation Comments SERUM IRON (test code = IRON) 17 MCG/DL 50-170 L TOTAL IRON BINDING CAPACITY (test 363 MCG/DL 280-400 N code = TIBC) IRON SATURATION (test code = 5 % 15-50 L FESAT) [id number] 05:50:00 Test Item Value Reference Range Interpretation Comments FERRITIN (test code = LULI) 11 NG/ML 3-105 N HEPATIC FUNCTION [id number] 05:32:00 Test Item Value Reference Range Interpretation [...] code = ALKP) - CT HEAD/BRAIN W/O [id number] 20:19:00 Patient Name: HEATHER HOPE Unit No: [id number] EXAMS: CPT CODE: [id number] CT HEAD/BRAIN W/O CONT 25861 Reason: seizure TECHNIQUE: Contiguous 5 mm images [...] Print D/T: S: 09/14/2018 (2021) CTDI: DLP: [facility] NAME: HEATHER HOPE November [facility] PHYS: NGA. - Keanu Vázquez [place] [address] : 1990 AGE: 27 SEX: F LOC: D.NER PHONE#: [phone] EXAM DATE: 09/14/2018 STATUS: REG ER FAX #: RAD NO: DC Dt: PAGE 1 Signed Report- XR CHEST 1 [id number] 20:18:00 Patient Name: HEATHER HOPE [facility] Unit No: [id number] EXAMS: CPT CODE: [id number] XR CHEST 1 V 77776 Reason: screen for pneumonia FINDINGS: Single view ofthe chest shows normal heart size and pulmonary vasculature. The lungs are clear bilaterally. There is no focal infiltrate, pleural effusion or pneumothorax. IMPRESSION: No a cute cardiopulmonary findings at 2018 Reported and signed by: Lashell Jimenez MD CC: Keanu Vázquez MD; Cristiane Heath Technologist: Edel Cade CT Trscrpt Dt/ (2017)Tristan Orig PrintD/T: S: 09/14/2018 (2020) [facility] NAME: NADINE HOPEICA November [facility] PHYS: NGA. - Keanu Váz[place] [address] : 1990 AGE: 27 SEX: F LOC: D.NER PHONE #: [phone] EXAM DATE: STATUS: REG ER FAX #: RAD NO: DC Dt: PAGE 1 Signed ReportHCG SERUM [id number] 20:04:00 Test Item Value Reference Range Interpretation [...] using aquantitative h CG assay. BASIC METABOLIC [id number] 19:51:00 Test Item Value Reference Range Interpretation [...] 9.3 MG/DL 8.7-10.5 N CA) CBC W/AUTO [id number] 19:46:00 Test Item Value Reference Range Interpretation [...] BA#) 0.05 x10 3/uL 0.0-0.2 N BLOOD [id number] 10:00:00 Test Item Value Reference Range Interpretation Comments CULTURE (BEAKER) (test No growth in 5 days code = 1095) HCG, QUANTITATIVE, [id number] 15:37:00 Test Item Value Reference Range Interpretation Comments GONADOTROPIN, CHORIONIC (HCG) 41495 mIU/mL 0-10 H QUANT (BEAKER) (test code = 649) Non- Females: <10 mIU/mL Females: Gestation Age Reference Range(mIU/mL) 0.2-1 Week 5-50 1-2 Weeks 50-500 2-3 Weeks 100-5,000 3-4Weeks 500-10,000 4-5 Weeks 1,000-50,000 5-6 Weeks 10,000-100,000 6-8 Weeks 15,000-200,000 2-3 Months 10,000-100,000COMPREHENSIVE METABOLIC [id number] 15:10:00 Test Item Value Reference Range Interpretation [...] PATIEN TS. CBC W/PLT COUNT & AUTO [id number] 14:53:00 Test Item Value Reference Range Interpretation [...] (test code = 2801) U/S, , FIRST [id number] 07:52:00Reason for exam:-> Reason for exam:->please include [...] 1 day. An embryonic pole is evident. Smock-rump length measures 0.63 cm, correlating with estimated [...] Verified Date/Time: 05/17/2017 07:52:37 Reading Location: [address] Ortho Consult Reading Room PREGNANCY SCREEN, [id number] 05:28:00 Test Item Value Reference Range Interpretation Comments TEST URINE (BEAKER) (test Positive code = 583) MR, BRAIN, WITHOUT [id number] 18:54:00Reason for exam:->Stroke evaluationFINAL REPORT MRI brain [...] MDReport Verified Date/Time: 05/15/2017 18:54:11 Reading Location: [facility] Radiology Reading Room EEG AWAKE AND [id number] 12:08:00Reason for exam:->? nonconvulsive statusDATE OF TEST: 05/15/2017DATE OF REPORT 05/15/2017 ACC: [id number] EE Start time: 1034 Stop time: 1054 ICD-10: R56.9CPT Code: 98411DVPRWUN: 26 y/o woman with epilepsy found down [...] recordings.Marika Smith M.D.Neurophysiology FellowSwathi Harper M.D.Neurophysiology Attending [id number] 04:27:00 Test Item Value Reference Range Interpretation Comments PROCALCITONIN (BEAKER) (test code 0.17 ng/mL <0.05 H = 3036) SEPSIS RISK (ng/mL)Low: 0.05-0.50Intermediate: 0.51-2.00High: >=[id number] 03:15:00 Test Item Value Reference Range Interpretation Comments PHOSPHORUS (BEAKER) (test code = 3.1 mg/dL 2.3-4.7 604) [id number] 03:15:00 Test Item Value Reference Range Interpretation Comments MAGNESIUM (BEAKER) (test code = 1.9 mg/dL 1.6-2.6 627) BASIC METABOLIC [id number] 03:15:00 Test Item Value Reference Range Interpretation [...] code = 380) LACTIC ACID, VENOUS, WHOLE [id number] 03:09:00 Test Item Value Reference Range Interpretation Comments LACTATE BLOOD VENOUS (2) (BEAKER) 0.6 mmol/L 0.5-2.2 (test code = 2872) Effective 10/17/2015: Units/Reference Range ChangeNew: 0.5-2.2 mmol/L Previous: 5-20 mg/dLPROTHROMBIN TIME/[id number] 03:07:00 Test Item Value Reference Range Interpretation [...] = 2801) RAD, CHEST, 1 VIEW, NON [id number] 01:06:00Reason for exam:->possible infectionShould this be performed at the bedside?->YesFINAL REPORT History: Infection. Comparison: None. Findings: A single view of the chest is submitted. The cardiomediastinal contours are unremarkable. There is no focal consolidation, pneumothorax, large pleural effusion or evidence of overt pulmonary edema. There is no acute bony abnormality. Impression: No acute abnormality. Signed: Shabnam Zhu Verified Date/Time: 05/15/2017 01:06:06 Reading Location: [address] Reading Room
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
[2020-05-03] MEDS ORDERED: levETIRAcetam 500 MG TAB ONE (14:44)
[2020-05-03] MEDS ORDERED: LORazepam 2 MG/ML VIAL ONE (14:44)
[2020-05-03 14:46] LABS: Urine Blood NEGATIVE (NEG); Urine Glucose NEGATIVE (NEG); Urine Protein NEGATIVE (NEG); Urine Specific Gravity >1.030 (1.005-1.030); Urine pH 5.5 (5.0-7.0)
[2020-05-03 14:51] LABS: Absolute Lymphocytes (CBC) 1.9 K/uL (0.7-4.9); Basophils % 0.7 % (0-1.3); Hematocrit 36.6 % (36.0-45.0); Lymphocytes % 18.5 % (15.3-44.8); MPV 8.3 fL (7.6-11.3); RBC Red Blood Cell Count 4.29 M/uL (3.86-4.86)
[2020-05-03 15:02] LABS: Protime INR 1.04
[2020-05-03 15:13] LABS: ALT/SGPT 29 U/L (12-78); AST/SGOT 17 U/L (15-37); Albumin 3.7 g/dL (3.4-5.0); Alkaline Phosphatase 79 U/L (45-117); BUN Blood Urea Nitrogen 9 mg/dL (7-18); Bicarbonate 28 mmol/L (21-32); Bilirubin Direct 0.2 mg/dL (0-0.2); Bilirubin Total 0.4 mg/dL (0.2-1.0); Glucose Level 89 mg/dL (74-106); Potassium 3.9 mmol/L (3.5-5.1); Protein, Total 7.2 g/dL (6.4-8.2); Sodium Level 140 mmol/L (136-145)
[2020-05-03 23:17] VITALS: BP 111/76; TEMP 98.1; O2SAT 100
== END 2020-05-03 14:39 | disposition short-term general hospital (02) ==
LOC: ER 12:02
DX: T20.23XA Burn of second degree of chin, initial encounter (principal); T20.20XA Burn of second degree of head, face, and neck, unspecified site, initial encounter; T31.0 Burns involving less than 10% of body surface; X16.XXXA Contact with hot heating appliances, radiators and pipes, initial encounter; Y93.9 Activity, unspecified; Y92.9 Unspecified place or not applicable; G40.909 Epilepsy, unspecified, not intractable, without status epilepticus
CPT/HCPCS: 36415; 80048; 80076; 80320; 80329; 81003; 81025; 85025; 85610; 85730; 93005; 96374; 99285

== ENCOUNTER 2020-05-15 22:59 | Emergency (ER) | payer OTHER ==
--- OUTSIDE RECORDS SUMMARY | 2020-05-15 23:02 | XMS REPORT | Clinical Summary ---
:1990 Author Organization [facility] Address [address] [place] [address] Care Team Providers Name Role Phone Unavailable Primary Care Provider Unavailable Allergies No Known Allergies Medications Medication Sig Dispensed Refills Start Date End Date Status levETIRAcetam (KEPPRA) Take 1 tablet 60 tablet 2 05/19/2017 Active 1000 MG tablet (1,000 mg total) by mouth 2 (two) times daily. vitamin Take 1 tablet by 90 tablet 3 05/20/2017 Active w/zfietly-dqba-dkidai mouth daily. ( PLUS) 27 mg iron- [...] VACCINE (#1) 2020 Results Not on fileafter 05/15/2019 [id number] 1 Advance Directives For more information, please contact: [phone] Code Status Date Activated Date Inactivated Comments Full Code 05/14/2017 10:10 PM 05/19/2017 2:55 PM This code status was determined by: Patient
--- OUTSIDE RECORDS SUMMARY | 2020-05-15 23:02 | XMS REPORT | Clinical Summary ---
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 23 ng/mL [facility] Specimen Plasma Performing Organization Address [facility] Phon e Number [facility] DEPARTMENT OF PATHOLOGY AND [address] [place], [place] [phone] [address] [address] ECG 12 lead (04/04/2020 7:02 PM CDT)Only the most recent of2 resultswithin the time period is included. Pathologist Sig nature Ventricular rate 77 [facility] Atrial rate 77 [facility] CO interval 154 [facility] QRSD interval 82 [...] is no t available. Performing Organization Address [place]/[facility] Phon e Number [facility] MUSE [address] [place] [address] CRITICAL CARE (04/04/2020 6:48 PM CDT) Narrative Performed At Max Ron MD 04/20/2020 3:37 PM Critical Care Performed by: Enoc Byers Authorized by: Max Ron MD Critical care provider statement: Critical care time (minutes): 20 Critical care was necessary to treat or prevent imminent or life-threatening deterioration of the following condit ions: [employer] failure or compromise Critical care was time [...] 1.1 0.5 - 2.2 mmol/L [facility] [place] Specimen Plasma Performing Organization Address [place]/[facility] Phon e Number [facility] DEPARTMENT OF PATHOLOGY AND [address] [place], [place] [phone] [address] [address] Phosphorus level (04/04/2020 6:33 PM CDT) Pathologist Sig nature Phosphorus 3.7 2.4 - 4.5 mg/dL [facility] L Specimen Plasma Performing Organization Address [place]/[facility] Phon e Number [facility] DEPARTMENT OF PATHOLOGY AND [address] [place] [address] [phone] [address] Comprehensive metabolic panel (04/04/2020 6:33 PM CDT)Only the most recent of3 resultswithin the time period is included. Sodium 138 135 - 148 [facility] mEq/L [facility] Potassium 3.6 3.5 - 5.0 [facility] mEq/L [facility] Chloride 105 98 - 112 [facility] mEq/L [facility] CO2 22 (L) 24 - 31 mEq/L [facility] Anion gap 11@ANIO 7 - 15 mEq/L [facility] BUN 7 6 - 20 mg/dL [facility] Creatinine 0.46 (L) 0.50 - 0.90 [facility] mg/dL HOSPITAL Glucose 96 65 - 99 mg/dL [facility] Calcium 9.2 8.3 - 10.2 [facility] mg/dL [facility] Protein 7.1 6.3 - 8.3 [facility] Comment: g/dL [facility] [place] 4.6-7.0 g/dL 1 week 4.4-7.6 g/dL 7 months-1year 5.1-7.3 g/dL 1-2 years 5.6-7.5 g/dL >3 years 6.0-8.0 g/dL 18-150 6.3-8.3 g/dL Albumin 3.8 3.5 - 5.0 [facility] g/dL [facility] A/G ratio 1.2 0.7 - 3.8 [facility] Alkaline phosphatase 64 35 - 104 U/L [facility] AST 20 10 - 35 U/L [facility] ALT 14 5 - 50 U/L [facility] Total bilirubin 0.4 0.0 - 1.2 [facility] mg/dL [facility] Specimen Plasma Performing Organization Address City/State/[facility] Code Phon e Number [facility] DEPARTMENT OF PATHOLOGY AND [address] [place], [place] [address] GENOMIC MEDICINE [facility] [address] [place] [address] PET Brain Metabolic Eval (03/30/2020 1:51 PM [...] cerebellar hypometabolism sugg ests a pharmacologic effect. [facility]-[id number] Procedure Note Interface, Radiology Results Incoming - [...] cerebellar hypometabolism sugg ests a pharmacologic effect. [facility]-[id number] Performing Organization Address City/State/ZIP Code Phon e Number [facility] [address] [place] [address] MRI Brain W Wo Contrast (03/27/2020 1:50 [...] 1Tx/32Rx head coil. Acquired sequences include MPRAGE, [id number], T2 JAEL, T2 FLAIR, SWI, and DTI [...] abnormality identified to explain patien t's seizures. [facility]-[id number] Procedure Note Hm Interface, Radiology Results Incoming - 03/28/2020 2:52 PM CDT EXAMINATION: MRI BRAIN W WO CONTRAST CLINICAL HISTORY: R56.9 Unspecified con vulsions, Seizures COMPARISON: Brain MRI on 11/13/[address] on 03/12/2020. TECHNIQUE: High-resolution brain MRI wit hout and with intravenous gadolinium contrast acquired using 7T MRI with 1Tx/32Rx head coil. Acquired sequences include MPRAGE, [id number], T2 JAEL, T2 FLAIR, SWI, and DTI [...] structural abnormality identified to explain patient's seizures. [facility]-[id number] Performing Organization Address City/State/ZIP Code Phon e Number [facility] [address] [place] [address] Epilepsy/Seizure monitoring (03/15/2020 12:14 PM CDT) Narrative [...] was recorded simultaneously with video throughout the [facility]. The EEG was visually inspected and analyzed [...] was recorded simultaneously with video throughout the . The EEG was visually inspected and analyzed [...] Start Date: 03/12/2020 Initial Study Start Time: 10: Current Study Start Date: 03/12/2020 Current Study [...] time period is included. Manual differential PERFORMED [facility] Neutrophils 51.0 39.0 - 69.0 % [facility] Lymphocytes 34.0 25.0 - 45.0 % [facility] Monocytes 13.0 (H) 0.0 - 10.0 % [facility] Eosinophils 2.0 0.0 - 5.0 % [facility] Basophils 0.0 0.0 - 1.0 % [facility] Metamyelocytes 0 % [facility] Promyelocytes 0 % [facility] Platelet slide review Sana adequate [facility] Anisocytosis Moderate [facility] Ovalocytes Moderate [facility] Enlarged platelets Moderate (A) [facility] Specimen Performing Organization Address City/State/ZIP Code Phon e Number [facility] DEPARTMENT OF PATHOLOGY AND [address] [place], [place] [address] GENOMIC MEDICINE [facility] [address] [place] [address] Continuous EEG monitoring (11/15/2019 1:22 AM CDT) [...] recorded simultaneously with video throughout the sonya tor. The EEG was visually inspected and [...] EEG and agree with the above fin esaus. Richard Henley MD Total iron binding capacity (11/13/2019 4:00 AM CDT) Pathologist Sig [facility] Iron level 20 (L) 37 - 145 ug/dL [facility] Iron binding capacity 335 200 - 400 ug/dL [facility] % Saturation 6.0 (L) 15.0 - 38.0 % [facility] Specimen Blood Performing Organization Address City/[facility] Phon e Number [facility] DEPARTMENT OF PATHOLOGY AND [address] [place] [address] [phone] [address] Ferritin level (11/13/2019 4:00 AM CDT) Pathologist Sig nature Ferritin level <13 (A) 13 - 150 ng/mL [facility] Specimen Blood Performing Organization Address City/[facility] Phon e Number [facility] DEPARTMENT OF PATHOLOGY AND [address] [place] [address] [phone] [address] MARCELINO titer (11/12/2019 7:40 PM CDT) Pathologist Sig nature MARCELINO titer 1:160 (A) Not-Detected [facility] MARCELINO pattern Homogeneous (A) Not-Detected [facility] Specimen Blood Performing Organization Address [place]/[facility] Phon e Number [facility] DEPARTMENT OF PATHOLOGY AND [address] [place] [address] [phone] [address] MARCELINO (11/12/2019 7:40 PM CDT) MARCELINO screen Positive (A) Negative [facility] Comment: HOSPITAL Test performed using NOVA Lite DAPI MARCELNIO kit (Indirect Immunofluorescence Assay) for Anti-Nuclear Antibody on NetScaler[employer]-Lyser 160 Analyzer. Specimen Blood Performing Organization Address City/[facility] Phon e Number [facility] DEPARTMENT OF PATHOLOGY AND [address] [place] [address] [phone] [address] Creatine kinase, total (CPK) (11/12/2019 7:40 PM CDT) Pathologist Sig nature Creatine kinase 56 26 - 192 U/L [facility] Specimen Performing Organization Address City/[facility]/ZIP [facility] Phon e Number [facility] DEPARTMENT OF PATHOLOGY AND [address] [place] [address] [phone] [address] Cortisol level, random (11/12/2019 7:40 PM CDT) Cortisol, random 2 ug/dL [facility] Comment: HOSPITAL Reference Ranges are not established for non-timed Cor tisol levels. Reference Range for Timed Cortisol: 6 - 10 AM 6 - 18 ug/d l 4 - 8 PM 3 - 11 ug/ dl Specimen Blood Performing Organization Address City/State/ZIP Code Phon e Number [facility] DEPARTMENT OF PATHOLOGY AND [address] [place], [place] [address] GENOMIC MEDICINE [facility] [address] [place] [address] CT Cervical Spine Wo Contrast (11/12/2019 6:12 [...] ied in the cervical spine. [facility]-[id number] Procedure Note Interface, Radiology Results Incoming - [...] ied in the cervical spine. [facility]-[id number] Performing Organization Address [place]/[facility]/ZIP Code Phon e Number [facility] [address] [place] [address] CT Maxillofacial Wo Contrast (11/12/2019 6:09 PM [...] The paranasal sinuses are clear. [facility]-[id number] Procedure Note Hm Interface, Radiology Results Incoming [...] The paranasal sinuses are clear. [facility]-[id number] Performing Organization Address [place]/[facility]/ZIP Code Phon e Number [facility] [address] [place] [address] XR Chest 1 Vw Portable (11/12/2019 5:35 [...] There is no acute cardiopulmonary dis ease. [id number] Procedure Note Hm Interface, Radiology Results Incoming [...] There is no acute cardiopulmonary dis ease. [id number] Performing Organization Address [place]/[facility]/ZIP [facility] Phon e Number [facility] [address] [place] [address] Alcohol level, blood (11/12/2019 5:04 PM CDT) Alcohol None Detected mg/dL [facility] Comment: HOSPITAL Normal None Detected Legal Intoxication in [place] 80 mg/dL (0.08%) - Whole Blood Toxic Concentration 200 mg/dL (0.2%) Potentially Fatal 350 - 500 mg/dL (0. 35 - 0.5%) Alcohol percent None Detected % [facility] Specimen Blood Performing Organization Address [place]/[facility] Phon e Number [facility] DEPARTMENT OF PATHOLOGY AND [address] [place] [phone] GENOMIC MEDICINE [address] [address] hCG qualitative, urine screen (11/12/2019 2:44 PM CDT) hCG qualitative, NegativeComment: [facility] urine Sensitivity of HCG HOSPITAL test: 25 mIU/mL Specimen Urine Performing Organization Address City/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
--- OUTSIDE RECORDS SUMMARY | 2020-05-15 23:06 | XMS REPORT | Continuity of Care Document ---
:1990 Author Organization [facility] t Address [address] [place] [address] Care Team Providers Name Role Phone Asked, Pcp Primary Care Physician Unavailable Chauncey Foster MD Attending Clinician Aron TAYLOR, L Attending Clinician Unavailable Danie Lala MD Attending Clinician Vini Turner MD Attending Clinician Gaye MENDOZA Attending Clinician Yancy BRITO C Attending Clinician Darren CRUZ Attending Clinician Unavailable Chandrika Ron MD Attending Clinician Alissa MENDOZA Attending Clinician Ninfa MENDOZA Attending Clinician Niki TAYLOR, A Attending Clinician Unavailable Di TAYLOR Attending Clinician Unavailable Adolfo Bailey MD Attending Clinician Susi Diana MD Attending Clinician BRANDO RODAS Attending Clinician Unavailable Danie Lala MD Admitting Clinician ALISSA Admitting Clinician Unavailable GAYE Admitting Clinician Unavailable Juliano DEJSEUS Admitting Clinician Unavailable Payers Payer Name Policy Type Policy Effective Date Expiration Date Sour ce Number CIGNACIGNA OPEN [id number] 2019 [place] ACCESS/NETWORKxx 00:00:00 Methodis t [id number]/ 0-PresentHMO MEDICAIDMEDICAID [id number] 2019 [place] [id number] 00:00:00 Methodis t 0-PresentMedicai d Problems Condition Condition Condition Status Onset Resolution Last Treating Co mments Source Name Details Category Date Date Treatment Clinician Date Epilepsy Epilepsy Disease Active 2019-06 [place] 0-21 [facility]i 00:00: st 00 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 00:00: st with with 00 generaliza generaliza tion and tion and with with intractabl intractabl e epilepsy e epilepsy Seizure Seizure Disease Active [place] 5 Methodi 00:00: st 00 Hypokalemi Hypokalemi Disease Active 2016-[address] [facility] [place] Acute Acute Disease Active 2016-[address] [facility] [address] encephalop encephalop 07-14 [facility] kes - athy athy 00:00: Medical 00 [place] Seizure Seizure Disease Active 2016-[address] [facility] [address] disorder disorder 07-14 [facility] [place] Leukocytos Leukocytos Disease Active 2016-[address] is is 07-14 [facility] 00 [place] Less than Less than Disease Active 2016-06 [...] Known DA Active U 2016-06 [facility] Social History Social Habit Start Date Stop Date Quantity Comments Source Sex Assigned At [facility] ethodist Exposure to Not sure [place] Metho dist SARS-CoV-2 (event) Tobacco use and 2020-05-02 2020-05-02 Never used [facility] ethodist exposure 00:00:00 00:00:00 Alcohol intake 2020-05-02 2020-05-02 Ex-drinker [facility] thodist 00:00:00 00:00:00 (finding) Smoking Status Start Date Stop Date Source Never smoker [place] Methodis t Medications Ordered Filled Start Stop Current Ordering Indication Dosage Frequency Signature Comments Components Source Medication Medication Date Date Medication? Clinician (SIG) Name Name cloBAZam 2019-06- Yes 30mg QD Take 3 [place] (ONFI) 10 1-12 05-11 tablets Method i mg tablet 00:00: 23:59 ([address] 00 :00 total) by mouth daily for 180 days. ergocalcife 2019-06- No 76497P Q7D Take 1 [place] rol 0-31 11-30 capsule Methodi (VITAMIN 00:00: 23:59 (50,000 st D2) 50,000 00 :00 Units unit total) by capsule mouth once a week for 30 days. levETIRAcet 2019-06- No 2250mg Q.5D Take 3 [place] [...] 750mg Q.5D Take 750 [place] am (KEPPRA) 6-02 06-02 mg by Method i 750 MG 17:12: 00:[address] tablet 15 :00 (two) times a day. levETIRAcet 2019- No 2250mg Q.5D Take 3 [place] (KEPPRA) 6- 07-02 tablets Meth maude 750 MG 00:00: 23:59 (2,[address] tablet 00 :00 total) by mouth 2 (two) times a day for 30 days. B 2019- No 1{tbl} QD Take 1 [place] complex-vit 6- 07-02 tablet by [place] marques carter 00:00: 23:[address] C-folic 00 :00 daily for acid 30 days. (FOLBEE PLUS 5 MG) 5 mg tablet per tablet cloBAZam 2019- No 10mg QD Take 1 [place] (ONFI) 10 6-02 07-02 tablet (10 Met hodi mg tablet 00:00: [...] ts Source Name Name Tdap 2020-05-02 Completed [place] 00:00:00 [place] Vital Signs Vital Name Observation Time Observation Value Comments Source Systolic blood 2020-05-02 17:45:00 127 mm[Hg] [place] pressure Diastolic blood 2020-05-02 17:45:00 74 mm[Hg] [place] pressure Heart rate 2020-05-02 17:45:00 82 /min [place] Respiratory rate 2020-05-02 17:45:00 14 /min [place] Oxygen saturation in 2020-05-02 17:45:00 100 /min [place] Arterial blood by Pulse oximetry Body height 2020-05-02 14:28:00 160 cm [place] Body weight 2020-05-02 14:28:00 78.019 kg [place] BMI 2020-05-02 14:28:00 30.47 kg/m2 [place] Body temperature 2020-05-02 14:17:21 36.94 Melody [place] Procedures Procedure Date / Time Performing Clinician Source Performed COVID-19 QUALITATIVE PCR 2020-05-02 16:10:00 Daniel Turner Vinijamal Piedra URINE CULTURE 2020-05-02 15:51:[address] HEAD WO CONTRAST 2020-05-02 15:47:02 Daniel Turner on [place] HC COMPLETE BLD COUNT 2020-05-02 15:30:00 Turner, Daniel Mccaberadha aguila [place] W/AUTO DIFF HCG QUALITATIVE, SERUM 2020-05-02 15:30:00 Terri Turnerori Martini Eliot farooq [place] SCREEN BASIC METABOLIC PANEL 2020-05-02 15:30:00 Terri Turnerori Martini Chandler aguila [place] ESTIMATED GFR 2020-05-02 15:30:00 TurnerDaniel ethodist SMEAR REVIEW 2020-05-02 15:30:00 Turner, Daniel Rai ethodist URINALYSIS SCREEN AND 2020-05-02 15:28:00 Terri Turnerori Martini Chandler aguila [place] MICROSCOPY, WITH REFLEX TO CULTURE POC GLUCOSE 2020-04-06 17:27:00 Freddy Ocasio odadriano DOUBLE-STRANDED DNA 2020-04-06 16:50:00 Ninfa Johnson (DSDNA) ANTIBODIES, Ninfa CRITHIDIA CENTROMERE ANTIBODY 2020-04-06 16:50:00 Ninfa Johnson [place] Ahmed SS-B ANTIBODY 2020-04-06 16:50:00 Ninfa Johnson N[place] thodist Ahmed POTASSIUM LEVEL 2020-04-05 17:40:00 Reza Avelar Meth odist HOMOCYSTINE, PLASMA 2020-04-05 17:40:00 Reza Avelar [place] EEG AWAKE/DROWSY LESS 2020-04-05 11:03:26 Reza Avelar THAN 41 MIN HC COMPLETE BLD COUNT 2020-04-05 04:00:00 Caesar Maxwell on [place] W/AUTO DIFF VITAMIN B12 LEVEL 2020-04-05 04:00:00 Reza Avelar Me thodist C-REACTIVE PROTEIN 2020-04-05 04:00:00 Reza Avelar ethodist HOMOCYSTINE, PLASMA 2020-04-05 04:00:00 Reza Avelar [place] RHEUMATOID FACTOR 2020-04-05 04:00:00 Reza Avelar Me thodist THYROID STIMULATING 2020-04-05 04:00:00 Reza Avelar [place] HORMONE T4, FREE 2020-04-05 04:00:00 Reza Avelar Meth odist T3 2020-04-05 04:00:00 Reza Avelar Meth odist SYPHILIS TOTAL ANTIBODY 2020-04-05 04:00:00 Reza Avelar [place] HIV AG/AB COMBINATION 2020-04-05 04:00:00 Reza Avelar [place] VITAMIN D 25 HYDROXY 2020-04-05 04:00:00 Reza Avelar [place] LEVEL BASIC METABOLIC PANEL 2020-04-05 04:00:00 Caesar Maxwell on [place] FOLATE LEVEL 2020-04-05 04:00:00 Caesar Maxwell Met hodist MAGNESIUM LEVEL 2020-04-05 04:00:00 Caesar Maxwell Met hodist ESTIMATED GFR 2020-04-05 04:00:00 Caesar Maxwell Met hodist COVID-19 QUALITATIVE PCR 2020-04-04 22:52:[address] HEAD WO CONTRAST 2020-04-04 21:17:59 Max Ron [place] CBC HEMOGRAM 2020-04-04 21:00:00 Max Ron Me thodist SEDIMENTATION RATE 2020-04-04 21:00:00 Max Ron URINE CULTURE 2020-04-04 20:52:00 Max Ron Me thodist KEPPRA (LEVETIRACETAM) 2020-04-04 20:15:00 Max Ron stoalberta [place] LEVEL URINALYSIS SCREEN AND 2020-04-04 19:19:00 Max Ron [place] MICROSCOPY, WITH REFLEX TO CULTURE URINE DRUGS OF ABUSE 2020-04-04 19:19:00 Max Ron on [place] SCREEN PROLACTIN LEVEL 2020-04-04 19:07:00 Max Ron Me thodist ECG 12-LEAD 2020-04-04 19:02:38 Max Ron Me thodist CRITICAL CARE 2020-04-04 18:48:10 Zeeshan Lila Enrique Meth odist COMPREHENSIVE METABOLIC 2020-04-04 18:33:00 Max Ron capri [place] PANEL LACTIC ACID LEVEL, SEPSIS 2020-04-04 18:33:00 Max Ron Enrique [place] - NOW AND REPEAT 2X EVERY 3 HOURS MAGNESIUM LEVEL 2020-04-04 18:33:00 Max Ron Nj thodist PHOSPHORUS LEVEL 2020-04-04 18:33:00 Max Ron M ethodist ESTIMATED GFR 2020-04-04 18:33:00 Max Ron Nj thodist PET BRAIN METABOLIC EVAL 2020-03-30 13:51:58 Gaye Richard [place] POC GLUCOSE 2020-03-30 12:29:00 Richard Huizar Enrique Light odist MRI BRAIN W WO CONTRAST 2020-03-27 13:50:00 Huizar, Richard Piedra MONITORED VIDEO-EEG 60 2020-03-15 12:14:01 Pinky Huizarnina Piedra HRS 1 MIN-74 HRS MONITORED W VIDEO DAILY 2020-03-15 00:12:21 Gaye Richard lemus [place] MONITORED W VIDEO DAILY 2020-03-14 00:24:17 Gaye Richard lemus [place] EEG SETUP 2020-03-13 00:17:20 Richard Huizar Enrique Light odist HC COMPLETE BLD COUNT 2020-03-12 14:18:00 Ulises Choudhary W/AUTO DIFF COMPREHENSIVE METABOLIC 2020-03-12 14:18:00 Ulises Choudhary PANEL ESTIMATED GFR 2020-03-12 14:18:00 Richard Huizar Enrique Meth odist MAGNESIUM LEVEL 2020-03-12 14:18:00 Richard Huizar [facility] Meth odist CT HEAD WO CONTRAST 2020-03-12 13:25:51 Ulises Choudhray COVID-19 QUALITATIVE PCR 2020-03-12 11:53:00 Dubovoy, Ulises A Chandler ston [place] UNMONITORED VIDEO-EEG 36 2019-11-15 09:41:23 Bina Bonds HRS 1 MIN-50 HRS CBC WITH PLATELET AND 2019-11-15 04:30:00 Adrian Diana [place] DIFFERENTIAL Ebrahim MANUAL DIFFERENTIAL 2019-11-15 04:30:00 Adrian Diana Ebrahim BASIC METABOLIC PANEL 2019-11-15 04:00:00 Adrian Diana Ebrahim ESTIMATED GFR 2019-11-15 04:00:00 Adrian Diana Meth odist Ebrahim UNMONITORED VIDEO DAILY 2019-11-15 01:22:22 Bina Bonds EEG SETUP 2019-11-14 00:26:44 Bina Bonds EEG (ROUTINE) 2019-11-13 07:46:23 Bina Bonds CBC WITH PLATELET AND 2019-11-13 04:00:00 Caesar Maxwell [place] DIFFERENTIAL BASIC METABOLIC PANEL 2019-11-13 04:00:00 Caesar Maxwell on [place] TOTAL IRON BINDING 2019-11-13 04:00:00 Caesar Maxwell CAPACITY FERRITIN LEVEL 2019-11-13 04:00:00 Caesar Maxwell Met hodist ESTIMATED GFR 2019-11-13 04:00:00 Caesar Maxwell Met hodist MANUAL DIFFERENTIAL 2019-11-13 04:00:00 Caesar Maxwell MRI BRAIN W WO CONTRAST 2019-11-13 02:16:00 Bina Bonds CONSULT TO OSTOMY CARE 2019-11-12 23:40:27 Caesar Maxwell [place] NURSE ECG 12-LEAD 2019-11-12 21:10:47 Bina Bonds MARCELINO 2019-11-12 19:40:00 Bina Bonds FOLATE LEVEL 2019-11-12 19:40:00 Bina Bonds VITAMIN B12 LEVEL 2019-11-12 19:40:00 Bina Bonds n [place] C-REACTIVE PROTEIN 2019-11-12 19:40:00 Bina Bonds on [place] HOMOCYSTINE, PLASMA 2019-11-12 19:40:00 Bina Bonds [place] CORTISOL LEVEL, RANDOM 2019-11-12 19:40:00 Bina Bondsston [place] SEDIMENTATION RATE 2019-11-12 19:40:00 Bina Bonds on [place] RHEUMATOID FACTOR 2019-11-12 19:40:00 Bina Bonds [place] THYROID STIMULATING 2019-11-12 19:40:00 Bina Bonds [place] HORMONE T4, FREE 2019-11-12 19:40:00 Bina Bonds [place] SYPHILIS TOTAL ANTIBODY 2019-11-12 19:40:00 Bina Bonds HIV AG/AB COMBINATION 2019-11-12 19:40:00 Bina Bondston [place] VITAMIN D 25 HYDROXY 2019-11-12 19:40:00 Bina Bonds stoalberta [place] LEVEL CREATINE KINASE, TOTAL 2019-11-12 19:40:00 Shari Bailey on [place] (CPK) [facility] PROLACTIN LEVEL 2019-11-12 19:40:00 Shari Bailey Meth odist Adolfo MARCELINO TITER 2019-11-12 19:40:00 Shari Bailey Meth odist Adolfo CT CERVICAL SPINE WO 2019-11-12 18:12:54 Shari Bailey [place] CONTRAST [facility] CT MAXILLOFACIAL WO 2019-11-12 18:09:40 Shari Bailey [place] CONTRAST Adolfo CT HEAD WO CONTRAST 2019-11-12 18:09:19 Shari Bailey [place] Adolfo XR CHEST 1 VW PORTABLE 2019-11-12 17:35:36 Shari Bailey on [place] [facility] HC COMPLETE BLD COUNT 2019-11-12 17:04:00 Shari Bailey [place] W/AUTO DIFF [facility] COMPREHENSIVE METABOLIC 2019-11-12 17:04:00 Shari Bailey [place] PANEL Adolfo ALCOHOL LEVEL, BLOOD 2019-11-12 17:04:00 Shari Baileyist Adolfo KEPPRA (LEVETIRACETAM) 2019-11-12 17:04:00 Shari Bailey on [place] LEVEL Adolfo ESTIMATED GFR 2019-11-12 17:04:00 Shari Bailey Meth odist Adolfo URINE CULTURE 2019-11-12 14:44:00 Keanu Flores Meth odist URINALYSIS SCREEN AND 2019-11-12 14:44:00 Keanu Flores [place] MICROSCOPY, WITH REFLEX TO CULTURE HCG QUALITATIVE, URINE 2019-11-12 14:44:00 Keanu Flores on [place] SCREEN URINE DRUGS OF ABUSE 2019-11-12 14:44:00 Keanu Flores [place] SCREEN Plan of Care Planned Activity Planned Date Details Comments Source Future Scheduled 2020-02-[address] [facility] - Test 00:00:00 (#1) [code = [facility] INFLUENZA VACCINE (#1)] Future Scheduled 2020-01-14 IN[place]ZA VACCINE [place] Test 00:00:00 [code = INFLUENZA VACCINE] Future Scheduled [address] [facility] - Test 00:00:00 malignant neoplasm Medical C enter of cervix (procedure) [code = 506684961] Future Scheduled 2010 Screening for [facility] Me thodist Test 00:00:00 malignant neoplasm of cervix (procedure) [code = 252694316] Encounters Start End Encounter Admission Attending Care Care Encounter Source Date/Time Date/Time Type Type Clinicians Facility Department ID 2020-05-15 2020-05-15 Outpatient JASS MARILEE [facility] [id number] [place] 00:00:00 00:00:[address] 2020-05-15 2020-05-15 Transition Jen Sharp [id number] 00:00:00 00:00:00 of Care Lesly Coleman [id number] [place] [id number] [facility] 2020-05-03 2020-05-12 [facility] Joann Lala [id number] 16:38:00 13:43:00 Encounter Papo Aden [id number] [place] [id number] 2020-05-02 2020-05-02 Emergency ANTHONY, [facility] [id number] [place] 00:00:00 00:00:00 DANIEL [address] 2020-04-26 2020-04-26 Outpatient RICHARD HUIZAR [facility] [id number] [place] 00:00:00 00:00:[address] 2020-04-10 2020-04-10 Office [facility] [id number] 14:14:37 15:26:08 Visit Savanna Muñoz 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 [id number] [facility] [id number] MATERNAL [id number] & CHILD [address] [place] [address] 2020-04-04 2020-04-07 Inpatient NINFA, [facility] 064 [id number] [place] 00:00:00 00:00:00 YAHYA [address] 2020-03-30 2020-03-30 Outpatient RICHARD HUIZAR [facility] [id number] [place] 00:00:00 00:00:[address] 2020-03-27 2020-03-27 Outpatient RICHARD HUIZAR [facility] [id number] [place] 00:00:00 00:00:[address] 2020-03-12 2020-03-15 Inpatient GAYE [facility] [id number] [place] 00:00:00 00:00:[address] 2020-02-16 2020-02-16 Outpatient RICHARD HUIZAR [facility] [id number] [place] 00:00:00 00:00:[address] 2019-11-12 2019-11-15 [facility] [place] [address] [id number] [place] 00:00:00 00:00:00 ADRIAN [address] Results Test Description Test Time Test Comments Results Result Comments Source Urine culture 2020-05-03 19:14:09 Test Item Value Reference Range Interpretation Comme nts Urine culture isolate Mixed prem <=10-3 Specimen InformationSpecimen (test code = 72674-3) col/cc Source : UrineSpecimen Site: Clean catch [place] MethodistCOVID-19 qualitative [id number] 22:57:50 Test Item Value Reference Range Interpretation Comments Interpretation (test Negative results do code = 0025148) not preclude 2019-nCoV infection and should not be used as the sole basis for treatment or other patient management decisions. Negative results must be combined with clinical observations, patient history, and epidemiological information. COVID-19 qualitative Not-Detected Not-Detected PCR result (test code = 75090-1) COVID-19 qualitative See link below for C ase Number: PCR (test code = PDF Lab Report [id number]) [place] MethodistUrinalysis screen and microscopy, with reflex to culture 2020-05-02 17:03:04 Test Item Value Reference Range Interpretation Comments Specimen site (test code = Clean catch 4441853) Color, UA (test code = 5778-6) Yellow Appearance, UA (test code = Clear 5767-9) Specific gravity, UA (test code = 1.035 1.001-1.035 5811-5) pH, UA (test code = 5803-2) 5.0 5.0-8.5 Protein, UA (test code = 96176-0) Negative Negative Glucose, UA (test code = 68345-1) Negative Negative Ketones, UA (test code = 2514-8) Trace Negative A Bilirubin, UA (test code = Negative Negative 5770-3) Blood, UA (test code = 5794-3) Negative Negative Nitrite, UA (test code = 5802-4) Negative Negative Urobilinogen, UA (test code = <2.0 <2.0 49028-0) Leukocyte esterase, UA (test code Small Negative A = 5799-2) Epithelial cells, UA (test code = 6 /HPF 5787-7) WBC, UA (test code = 5821-4) 10 0- 4 /HPF H RBC, UA (test code = 28474-5) 2 0- 5 /HPF Bacteria, UA (test code = Few None seen 82492-4) Yeast, UA (test code = 90983-9) None seen Yeast with pseudohyphae, UA (test None seen code = 58340-1) Lab Interpretation (test code = Abnormal 02826-2) [facility] MethodisthCG qualitative, serum [id number] 16:18:10 Test Item Value Reference Range Interpretation Comments hCG qualitative, Negative Sensitivity of HCG test: serum (test code = 25 mIU/mL 2117-8) [place] MethodistBasic metabolic [id number] 16:11:00 Test Item Value Reference Range Interpretation Comments Sodium (test code = 2951-2) 140 135- 148 mEq/L Potassium (test code = 2823-3) 3.7 3.5- 5.0 mEq/L Chloride (test code = 2075-0) 103 98- 112 mEq/L CO2 (test code = 2027-9) 25 24- 31 mEq/L Anion gap (test code = 89542-7) 12@ANIO 7- 15 mEq/L BUN (test code = 3094-0) 13 mg/dL 6-20 Creatinine (test code = 2160-0) 0.70 mg/dL 0.5-0.9 Glucose (test code = 2345-7) 93 mg/dL 65-99 Calcium (test code = 55168-9) 9.6 mg/dL 8.3-10.2 [facility] MethodistEstimated [id number] 16:11:00 Test Item Value Reference Range Interpretation Comments Estimated GFR (test >=90 mL/min/1.73 m2 Haider wiggins Units code = 5488) InterpretationG 1 >=90 Normal or highG2 60-89 Mildly uazowbqtiP7y 45-59 Mildly to mode rately oduyxlmpeQ2l 30-44 Moderately to severely decreasedG4 15-29 Severely decre asedG5 <15 Kidn ey failureThe eGFR was calculated alyssa fortune the Chronic Kidney Disease Epidemiology Co llaboration (CKD-EPI) equat ion. Interpretation is based on recommendations of the National Kidney Foundation-Kidn ey Disease Outcomes Qualit y Initiative (NKF-KDOQI) pub lished in 2014. [facility] MethodistCBC with platelet and [id number] 16:06:29 Test Item Value Reference Range Interpretation Comments WBC (test code = 77558-5) 10.69 4.50- 11.00 k/uL RBC (test code = 78759-7) 4.71 m/uL 4.2-5.5 HGB (test code = 718-7) 13.5 g/dL 12-16 HCT (test code = 4544-3) 42.4 % 37-47 MCV (test code = 787-2) 90.0 fL 82-100 MCH (test code = 785-6) 28.7 pg 27-34 MCHC (test code = 786-4) 31.8 g/dL 31-37 RDW - SD (test code = 41.3 fL 37-55 40528-9) MPV (test code = 72005-9) 10.0 fL 8.8-13.2 Platelet count (test code 260 150- 400 k/uL = 82112-8) Nucleated RBC (test code 0.00 /100 WBC = 85655-0) Neutrophils (test code = 65.7 % 39-69 30679-9) Lymphocytes (test code = 24.7 % 25-45 L 08765-9) Monocytes (test code = 7.3 % 0-10 20080-3) Eosinophils (test code = 1.3 % 0-5 84868-6) Basophils (test code = 0.7 % 0-1 71012-7) Immature granulocytes 0.3 % 0-1 "Immat ure (test code = 79785-6) granul ocytes" (promyelocytes, myelocytes, metamyelocytes) Lab Interpretation (test Abnormal code = 23341-8) [facility] MethodistSmear [id number] 16:06:29 Test Item Value Reference Range Interpretation Comments Platelet slide review (test code Sana adequate = 57594-4) Enlarged platelets (test code = Moderate A 66636-9) Lab Interpretation (test code = Abnormal 49793-8) [place] MethodistCT Head Wo [id number] 15:54:03Hm Interface, Radiology Results 05/02/2020 3:57 PM [...] IMPRESSION:1. No CT evidence of acute intracranial abnormality.[id number] [place] Epilepsy/Seizure [id number] 09:01:11EPILEPSY MONITORING UNIT REPORT Patient Name: Heather [...] left frontal central temporal region. ICD-10 Code: Z583Gtjaule MethodistEpilepsy/Seizure monitoring 2020-04-23 09:00:05EPILEPSY MONITORING UNIT REPORT Patient Name: Heather Hope [...] left frontal central temporal region. ICD-10 Code: Q244Qrjtyeo [place] Epilepsy/Seizure [id number] 08:55:34EPILEPSY MONITORING UNIT REPORT Patient Name: Heather [...] left frontal central temporal region. ICD-10 Code: D688Zcwzmec [place] Epilepsy/Seizure [id number] 08:45:34EPILEPSY MONITORING UNIT REPORT Patient Name: Heather [...] left frontal central temporal region. ICD-10 Code: A327Aayuuaj MethodistDouble-stranded DNA (dsDNA) antibodies, [id number] 13:15:26 Test Item Value Reference Range Interpretation Comments DNA Ab screen (test code = 1297) Not Detected Not-Detected Enrique MethodistRibonucleic antibody (NATURAL SCIENCE MANAGER)2020-04-06 18:25:47 Test Item Value Reference Range Interpretation Comments Ribonucleic antibody <0.2 0.0- 0.9 AI (NATURAL SCIENCE MANAGER) (test code = 21490-4) Ribonucleic antibody Negative AI Anti-ri bonucleic (NATURAL SCIENCE MANAGER) interp (test protein ( anti-NATURAL SCIENCE MANAGER) code = 5267) antibodies are typically found in patients with m ixed connective tiss ue disease, but ca n also be seen in christin ents with systemic l upus erythematosus ( SLE) or systematic scle rosis. Enrique MethodistJo-1 [id number] 18:25:46 Test Item Value Reference Range Interpretation Comments Bernarda-1 antibody (test <0.2 0.0- 0.9 AI code = 86181-9) Bernarda-1 antibody interp Negative Anti-Bernarda -1 antibody is (test code = 5263) predomina ntly found in patients with polymyositis, e specially for those with interstitial pu lmonary fibrosis. It ca n also be found in patien ts with dermatomyositis . [facility] MethodistScl-70 [id number] 18:25:46 Test Item Value Reference Range Interpretation Comments Scleroderma SCL-70 Ab <0.2 0.0- 0.9 AI (test code = 29541-1) Scl-70 antibody interp Negative AI Anti- Scl-70 (test code = 5268) (topoisom erase I) antibodies are found in patients with s ystemic sclerosis (SSc or scleroderma), a nd have been reported t o be predictive of d iffuse cutaneous invol vement. Anti-Scl-70 ant ibodies may also be pre sent in patients with s ystemic lupus erythemat osus (SLE). Nunez MethodistSS-A [id number] 18:25:46 Test Item Value Reference Range Interpretation Comments Sjogren's SS-A <0.2 0.0- 0.9 AI antibody (test code = 08261-4) SS-A antibody interp Negative AI SS-A an tibody is (test code = 2235) sensitive for Sjogren's syndrome, but m ay also be positive with s ystemic lupus erythemat osus (SLE), and syst emic sclerosis. [facility] MethodistCentromere [id number] 18:25:45 Test Item Value Reference Range Interpretation Comments Centromere antibody <0.2 0.0- 0.9 AI (test code = 8068-9) Centromere antibody Negative AI Anti-sae tromere interp (test code = antibodi es are found 04937-3) in patients wit h systemic sclero sis (SSc or sclerod sb), especially for those with limited cu taneous or CREST syndro me. Anti-centromere antibodies may also be found in patien ts with other rheumatic or connective tiss ue diseases. [facility] MethodistSmith [id number] 18:25:45 Test Item Value Reference Range Interpretation Comments Matthew antibody (test <0.2 0.0- 0.9 AI code = 59987-4) Matthew antibody Negative AI Anti-Matthew an tibodies interp (test code = occurs i n 30-35% of 5269) systemic lupus erythematosus ( SLE) cases, but is v gilbert specific for SL E. It may also present in mixed connective-tiss ue disease (MCTD). [place] MethodistSS-B [id number] 18:25:44 Test Item Value Reference Range Interpretation Comments Sjogren's SS-B 0.6 0.0- 0.9 AI antibody (test code = 3001) SS-B antibody interp Negative AI SS-B/La antibody is seen (test code = 2237) in patien ts with Sjogren syndrome, but m ay also be positive with s ystemic lupus erythemat osus (SLE), and syst emic sclerosis. [place] MethodistKeppra (Levetiracetam) [id number] 17:50:04 Test Item Value Reference Interpretation Comments Range Levetiracetam 23 ug/mL 12-46 INTERPRETIVE I NFORMATION: (test code = Keppra 4478-4) (Levetiracetam) Therapeutic Range: 12-46 u g/mL Toxic: Not wel l EstablishedPhar macokinetics of levetiracetam a re affected by renal function. Adverse effects may include andi nolence, weakness, heada justus and vomiting.This l evetiracetam (Keppra) immuno assay uses the [employer] reagents, which has known cross -reactivity with the drug brivar acetam (Briviact) and may report inaccurate resu lts. Patients transitioning f rom levetiracetam t o brivaracetam or those who ar e using both medications alejandra uld not monitor drug concentrat ions with the [facility] assay. These patients should be monitored using a validat ed chromatographic methodology that distinguis hes between drugs to determ ine drug concentrations. Performed By: [facility] [place] [address] [id number] Director: Gege Pierson MD [place] NancyistPO lgtgjlx7085-31-26 17:38:16 Test Item Value Reference Range Interpretation Comments POC glucose (test code = 102 mg/dL 65-99 H Ope rator Name: [id number]) Gerber Coulter ice ID: [id number] Lab Interpretation (test Abnormal code = 29258-4) [place] DruzeHomocystine, blykji5192-37-23 18:55:23 Test Item Value Reference Range Interpretation Comments Homocysteine (test 6.7 umol/L 0-15 The risk for coronary code = 45365-0) vascular dis ease increases progressively w ith homocysteine concentration. A 3.4 times greater r isk is associated with a homocysteine concentration o f greater than 15.8 umol/L as carlin red to a concentration below 14.1 umol/L. S pecimen is slightly hem olyzed. Interpret resu lts accordingly. Nunez MethodistPotassium ajscu4137-54-01 18:49:08 Test Item Value Reference Range Interpretation Comments Potassium (test code = 2823-3) 3.7 3.5- 5.0 mEq/L [place] MethodistVitamin D 25 hydroxy mgspy9478-24-20 15:53:37 Test Item Value Reference Range Interpretation [...] hods. Lab Interpretation Abnormal (test code = 62854-3) Nunez MethodistECG 12 gddg7281-67-15 13:34:29 Test Item Value Reference Range Interpretation Comments Ventricular rate (test 77 code = 253) Atrial rate (test code 77 = 255) [place] interval (test code 154 = 266) QRSD [...] of 12-NOV-2019 21:10,-No significant change was found- [place] MethodistEEG (routine)2020-04-05 11:50:53VIDEO-EEG RECORDING AWAKE & ASLEEP. [...] are captured. Jojo Cruz MD ICD-10 Code: V868Oybfsyt MethodistSyphilis total rrvdfssp8147-48-80 10:02:20 Test Item Value Reference Range Interpretation Comments Syphilis total Non-reactive Non-reactive No serologica l antibody (test evidence of code = 6194) syphilis infect ion. LUIS MIGUEL (test code = Unable to perform LUIS MIGUEL) testing, specimen is _HEMOLYZED___. Recollect requested for __K__ (tests). __LILA JOHN (name/location) notified by ___JT_ (tech ID) at __ 04/05/2020 07:01 __ (date/time). Credit issued.Unable to perform testing, specimen is _HEMOLYZED___. Recollect requested for _HCYT (tests). __LILA JOHN (name/location) notified by ___JT_ (tech ID) at __ 04/05/2020 09:26 __ (date/time). Credit issued. Enrique MethodistRheumatoid bbpjbg9476-04-46 09:01:34 Test Item Value Reference Range Interpretation Comments Rheumatoid factor (test <10 0- 13 IU/mL code = 18991-6) LUIS MIGUEL (test code = LUIS MIGUEL) Unable to perform testing, specimen is _HEMOLYZED___. Recollect requested for __K__ (tests). __LILA JOHN (name/location) notified by ___JT_ (tech ID) at __ 04/05/2020 07:01 __ (date/time). Credit issued. Enrique PiedraVitamin B12 fwrvz5078-22-80 06:58:42 Test Item Value Reference Range Interpretation Comments Vitamin B12 (test 739 pg/mL 211-946 Significan t overlap code = 2132-9) exists betwee n normal and deficiency states.However, most patients with deficiencies wi ll have Serum B12 <2 00 pg/mL. Enrique MethodistFolate yugip9835-27-00 06:58:42 Test Item Value Reference Range Interpretation Comments Folate (test code = 2284-8) 14.0 ng/mL 4.8-24.2 Enrique MethodistMagnesium ryjzc4371-04-44 06:52:05 Test Item Value Reference Range Interpretation Comments Magnesium (test code = 23342-7) 1.8 mg/dL 1.6-2.6 Enrique CruzistT4, mypo1831-44-93 06:52:05 Test Item Value Reference Range Interpretation Comments T4, free (test code = 3024-7) 1.1 ng/dL 0.9-1.7 Enrique MethodistThyroid stimulating gocpwcs8635-09-19 06:52:05 Test Item Value Reference Range Interpretation Comments TSH (test code = 3016-3) 1.26 0.27- 4.20 uIU/mL Enrique CruzSefvuqdicV81777-58-60 06:52:05 Test Item Value Reference Range Interpretation Comments T3 (test code = 3053-6) 89 ng/dL 80-200 Enrique PiedraC-reactive wuqzmth5994-70-59 06:52:05 Test Item Value Reference Range Interpretation Comments CRP (test code = 1988-5) <0.30 0-0.5 Nunez DruzeHIV Ag/Ab ukpkwjngmxt2670-99-34 06:48:46 Test Item Value Reference Range Interpretation Comments HIV Ag/Ab combination (test code Non-reactive Non-reactive = 5299) Nunez Hermiloedimentation ypps1125-30-18 22:23:01 Test Item Value Reference Range Interpretation Comments Sedimentation rate (test code = 6 0- 20 mm/hr 16668-3) [facility] rwxjsx1950-97-82 21:28:59 Test Item Value Reference Interpretation Comments Range Amphetamine screen, Negative urine (test code = 3349-8) Barbiturate screen, Negative urine (test code = 3377-9) Benzodiazepine Positive A screen, urine (test code = 3390-2) Cocaine screen, Negative urine (test code = 3397-7) Methadone Negative metabolite (EDDP), urine (test code = 49313-1) Opiates screen, Negative urine (test code = 3879-4) Oxycodone screen, Negative urine (test code = 35016-0) Phencyclidine Negative screen, urine (test code = 3936-2) Tricyclic screen, Negative urine (test code = 84903-1) Cannabinoid screen, Negative Drug scr een minimum [...] ired. Lab Interpretation Abnormal (test code = 11588-6) Enrique MethodistComprehensive metabolic tdzbt7373-18-42 21:27:39 Test Item Value Reference Range Interpretation Comments Sodium (test code = 138 135- 148 mEq/L 2951-2) Potassium (test code = 3.6 3.5- 5.0 mEq/L 2823-3) Chloride (test code = 105 98- 112 mEq/L 2075-0) CO2 (test code = 2027-9) 22 24- 31 mEq/L L Anion gap (test code = 11@ANIO 7- 15 mEq/L 33852-4) BUN (test code = 3094-0) 7 mg/dL 6-20 Creatinine (test code = 0.46 mg/dL 0.5-0.9 L 2160-0) Glucose (test code = 96 mg/dL 65-99 2345-7) Calcium (test code = 9.2 mg/dL 8.3-10.2 40148-4) Protein (test code = 7.1 g/dL 6.3-8.3 -[place] n 2885-2) 4.6-7.0 g/dL1 week 4.4-7 .6 g/dL7 months-1y ear 5.1-7 .3 g/dL1-2 years 5.6-7 .5 g/dL>3 years 6.0-8 .0 g/mH98-944 6.3-8 .3 g/dL Albumin (test code = 3.8 g/dL 3.5-5 1751-7) A/G ratio (test code = 1.2 0.7-3.8 1759-0) Alkaline phosphatase 64 U/L 35-104 (test code = 6768-6) AST (test code = 1920-8) 20 U/L 10-35 ALT (test code = 1742-6) 14 U/L 5-50 Total bilirubin (test 0.4 mg/dL 0-1.2 code = 1974-2) Lab Interpretation (test Abnormal code = 56438-7) Enrique MethodistLactic acid level, SEPSIS - Now and repeat 2x every 3 hours 2020-04-04 21:27:38 Test Item Value Reference Range Interpretation Comments Lactic acid (test code = 34025-1) 1.1 mmol/L 0.5-2.2 [place] MethodistPhosphorus wougf3482-10-45 21:27:37 Test Item Value Reference Range Interpretation Comments Phosphorus (test code = 2777-1) 3.7 mg/dL 2.4-4.5 [facility] ghdvippw2923-73-27 21:21:43 Test Item Value Reference Range Interpretation Comments WBC (test code = 48984-7) 7.66 4.50- 11.00 k/uL RBC (test code = 92246-6) 4.23 m/uL 4.2-5.5 HGB (test code = 718-7) 12.2 g/dL 12-16 HCT (test code = 4544-3) 36.8 % 37-47 L MCV (test code = 787-2) 87.0 fL 82-100 MCH (test code = 785-6) 28.8 pg 27-34 MCHC (test code = 786-4) 33.2 g/dL 31-37 RDW - SD (test code = 51734-0) 40.3 fL 37-55 MPV (test code = 05085-0) 10.1 fL 8.8-13.2 Platelet count (test code = 247 150- 400 k/uL 61986-3) Nucleated RBC (test code = 0.00 /100 WBC 68976-8) Lab Interpretation (test code = Abnormal 71661-3) [place] MethodistProlactin tliji9480-96-07 21:11:11 Test Item Value Reference Range Interpretation Comments Prolactin (test code = 2842-3) 13 ng/mL 5-23 [place] MethodistCRITICAL ZVVE9418-14-83 18:48:10BMax gleason MD 04/20/2020 3:37 PMCritical CarePerformed by: Lila ByersAuthorized by: Max Ron MD Critical care provider statement: Critical care time (minutes): 20 Critical care was necessary to treat or prevent imminent or life- threatening deterioration of the following conditions: NUTRITION COORDINATOR failure or compromise Critical care was time [...] for this patient from another provider.: Hawa CruzistPET Brain Metabolic Yfyh7781-06-93 14:42:07Hm Interface, Radiology Results Incoming - 03/30/2020 2:45 PM CDTPROCEDURE: PET [...] interictal study.2.Diffuse cerebellar hypometabolism suggests a pharmacologic effect.[facility]-[id number] MethodistContinuous EEG nnfjylcswy8552-63-28 17:34:53CONTINUOUS VIDEO-EEG MONITORING REPORT Patient Name: Heather [...] No seizures occurred. ICD-10 Code: R56.9[place] MethodistANA gjtvp7646-62-81 13:12:21 Test Item Value Reference Range Interpretation Comments MARCELINO titer (test code = 58979-6) 1:160 Not-Detected A MARCELINO pattern (test code = 33177-4) Homogeneous Not-Detected A Lab Interpretation (test code = Abnormal 56016-9) Enrique PopmdugvgYNO4004-64-23 13:08:33 Test Item Value Reference Range Interpretation Comments MARCELINO screen (test code Positive Negative A Test p erformed using = 550) [employer] DAPI MARCELINO kit (Indirect Immunofluoresce nce Assay) for Anti -Nuclear Antibody on HARL[place] QUANTA-Lyser 16 0 Analyzer. Lab Interpretation Abnormal (test code = 37370-6) [place] MethodistManual gsorruzjqxma9332-13-54 08:57:11 Test Item Value Reference Range Interpretation Comments Manual differential (test code = PERFORMED 46090-5) Neutrophils (test code = 51.0 % 39-69 94691-7) Lymphocytes (test code = 34.0 % 25-45 90723-5) Monocytes (test code = 64012-5) 13.0 % 0-10 H Eosinophils (test code = 2.0 % 0-5 51640-4) Basophils (test code = 65297-1) 0.0 % 0-1 Metamyelocytes (test code = 0 % 740-1) Promyelocytes (test code = 0 % 783-1) Platelet slide review (test code Sana adequate = 45499-2) Anisocytosis (test code = 702-1) Moderate Ovalocytes (test code = 774-0) Moderate Enlarged platelets (test code = Moderate A 57192-4) Lab Interpretation (test code = Abnormal 00436-1) [place] MethodistContinuous EEG ldguwkrwso9184-84-98 07:42:19CONTINUOUS VIDEO- EEG MONITORING REPORT Patient Name: [...] regions independently. No seizures occurred. ICD-10 Code: R56.9[facility] Druze Continuous EEG cpseaxrcca9436-45-81 07:19:24 CONTINUOUS VIDEO-EEG MONITORING REPORT Patient Name: [...] regions independently. No seizures occurred. ICD-10 Code: R56.9[facility] MethodistEEG (routine) - Baseline OJN9364-98-00 06:43:32EEG RECORDING AWAKE & ASLEEP - Baseline [...] agree with the above findings. Richard Huizar MDAnchorage MethodistFerritin alsql8629-68-40 07:54:01 Test Item Value Reference Range Interpretation Comments Ferritin level (test code = 2276-4) <13 13-150 A Lab Interpretation (test code = Abnormal 69714-0) [place] MethodistTotal iron binding ydlparna5237-43-84 07:50:12 Test Item Value Reference Range Interpretation Comments Iron level (test code = 2498-4) 20 ug/dL 37-145 L Iron binding capacity (test code = 335 ug/dL 879-853 4172-7) % Saturation (test code = 2502-3) 6.0 % 15-38 L Lab Interpretation (test code = Abnormal 83224-5) Nunez MethodistCortisol level, zarbcj7321-07-69 20:48:37 Test Item Value Reference Range Interpretation Comments Cortisol, random 2 ug/dL Reference R anges are not (test code = 2143-6) establi shed for non-timed Cortisol levels .Reference Range for Timed Cortisol: 6 - 10 AM 6 - 18 ug/dl 4 - 8 PM 3 - 11 ug/ dl [place] MethodistCreatine kinase, total (CPK)2019-11-12 20:42:35 Test Item Value Reference Range Interpretation Comments Creatine kinase (test code = 2157-6) 56 U/L 26-192 [place] MethodistCT Cervical Spine Wo Edqejlbx3894-19-04 18:17:20Hm Interface, Radiology Results 11/12/2019 6:20 PM [...] fracture or subluxation identified in the cervical spine.[facility]-6OZ5010W96Urqylbu MethodistCT Maxillofacial Wo Dobpbbxs1860-01-02 18:15:46Hm Interface, Radiology Results 11/12/2019 6:18 PM [...] soft tissues are unremarkable.The paranasal sinuses are clear.[facility]-1DC81169YBRdbwcgrVal [facility]de [facility] Alcohol level, ipjsk9693-83-58 18:06:03 Test Item Value Reference Range Interpretation Comments Alcohol percent None Detected % Normal (test code = None Detec tedLegal 5643-2) Intoxication in [place] 80 mg/dL (0.08% ) - Whole BloodToxi c Concentration 200 mg/dL (0.2%)Potential ly Fatal 350 - 500 mg/dL (0.35 - 0 .5%) [place] Methodunm cancer centerXR Chest 1 Vw Gmicgxog4664-03-08 17:37:03Hm Interface, Radiology Results 11/12/2019 5:40 PM CDTEXAMINATION: XR CHEST 1 VW PORTABLECLINICAL HISTORY: SOBXR CHEST 1 VW PORTABLE images are submittedCOMPARISON: NONEFINDINGS:The cardiac silhouette is normal in size. The pulmonary vasculature is within normal limits. The lung zones have no focal area of consolidation. There is no pleural effusion or pneumothorax.IMPRESSION:1. Thereis no acute cardiopulmonary disease.STJO-9IY6238MNFFyxgufc MethodisthCG qualitative, urine zpvekd8974-60-95 15:26:18 Test Item Value Reference Range Interpretation Comments hCG qualitative, Negative Sensitivity of HCG test: urine (test code = 25 mIU/mL 2106-3) [place] MethodistDRUGS OF ABUSE SCREEN KZ4605-67-01 17:11:00 Test Item Value Reference Range Interpretation [...] = [place]) concentrati on: 300 ng/mL URINALYSIS UQCXEQYE4196-58-25 17:08:00 Test Item Value Reference Range Interpretation [...] (test code = MOD NONE BACU) URINALYSIS EWPRMYQT9544-39-02 17:00:00 Test Item Value Reference Range Interpretation [...] (test code = NONE BACU) HCG SERUM [id number] 16:52:00 Test Item Value Reference Range Interpretation Comments HCG SERUM QUAL (test code = HCGQL) NEGATIVE NEGATIVE - CT HEAD/BRAIN W/O [id number] 16:51:00 FAX: Theresa Fields MD [place]: St: REG Name: HEATHER HOPE [facility] : 1990 Age/S: 28/F [address] [facility] Unit: [id number] Loc: [place], [place] Phys: [place] [address] Acct: [id number] Dis Date: Status: REG ER PHONE #: [phone] Exam Date: 02/23/2019 1642 FAX #: [phone] Reason: SEIZURE EXAMS: CPT CODE: [id number] CT HEAD/BRAIN W/O CONT 92291 Dictation location: U19. CT HEAD WITHOUT CONTRAST. [...] MD Technologist: HEATHER DICKSON Trnscrd Dt/Tm: 02/23/2019 (6241) t.SDR.SP17 Orig Print D/T: S: 02/23/2019 (1907 PAGE 1 Signed ReportBASIC METABOLIC [id number] 16:31:00 Test Item Value Reference Range Interpretation [...] CA) 8.8 mg/dl 8.0-10.5 N BASIC METABOLIC [id number] 16:26:00 Test Item Value Reference Range Interpretation [...] code = CA) mg/dl 8.0-10.5 CBC W/AUTO [id number] 16:15:00 Test Item Value Reference Range Interpretation [...] 3-60 N code = VLDL) RAPID PLASMA [id number] 10:31:00 Test Item Value Reference Range Interpretation Comments RAPID PLASMA REAGIN (test code = Nonreactive Nonreactive RPR) GLYCOSYLATED HEMOGLOBIN (HA1C)2018-12-07 10:05:00 Test Item Value Reference Range Interpretation Comments GLYCOSYLATED HEMOGLOBIN (HA1C) 5.8 % TOT HB 4.5-6.2 N (test code = GLYHGB) [id number] 15:31:00 Test Item Value Reference Range Interpretation Comments ACETAMINOPHEN (test < 1 MCG/ML 10-30 L Acetamin ophen is code = ACET) possibly toxic at levels of: 1. m ore than 150 MCG/ML 4 hours post kaylin stion. 2. more than 5 0 MCG/ML 12 hours post ingestion. [id number] 15:31:00 Test Item Value Reference Range Interpretation Comments SALICYLATE (test code = < 3 MG/DL 0-20 N Refe rence Range: BOSSMAN) Analgesic...... ...... ...... < 10 mg /dl Therapeutic.... ...... ...... 15-20 mg /dl Mild Toxicity....... ...... . > 30 mg/dl Severe Toxicity....... ..... > 60 mg/dl UA RFLX [id number] 14:18:00 Test Item Value Reference Range Interpretation [...] Clean Catch (test code = UASPEC) UA [id number] 14:18:00 Test Item Value Reference Range Interpretation Comments UA WBC (test code = WBCU) < 10 #/hpf <10 UA RBC (test code = RBCU) 0-2 #/hpf NONE SEEN A UA BACTERIA (test code = BACU) RARE #/hpf NONE SEEN UA SQUAMOUS CELLS (test code = 0 - 20 #/lpf <100 SQU) UA MUCUS (test code = MUCU) 1+ #/lpf NONE SEEN BASIC METABOLIC [id number] 14:16:00 Test Item Value Reference Range Interpretation [...] 9.4 MG/DL 8.7-10.5 N CA) HEPATIC FUNCTION [id number] 14:16:00 Test Item Value Reference Range Interpretation [...] 50-136 N TOTAL (test code = ALKP) [id number] 14:16:00 Test Item Value Reference Range Interpretation Comments CK (test code = CKT) 87 Units/L 26-192 N [id number] 14:16:00 Test Item Value Reference Range Interpretation Comments ALCOHOL (test code = < 3 MG/DL 0-10 N 0 - 10: Should be ALC) interpreted as NEGATIVE. 11 - 50: None to mild euphoria. 51 - 100: Mild influence on vision and dark adapta tion. > 80: Legal intoxication; D epression of NUTRITION COORDINATOR; Increasing degr ee of poisoning. > 400: Fatalities repo rted. Results are for medical purposes only a nd not forlegal or emp loyment evaluative purp oses. BASIC METABOLIC [id number] 14:09:00 Test Item Value Reference Range Interpretation [...] 9.4 MG/DL 8.7-10.5 N CA) HEPATIC FUNCTION [id number] 14:09:00 Test Item Value Reference Range Interpretation [...] TOTAL (test Units/L 50-136 code = ALKP) [id number] 14:09:00 Test Item Value Reference Range Interpretation Comments CK (test code = CKT) Units/L 26-192 [id number] 14:09:00 Test Item Value Reference Range Interpretation Comments ALCOHOL (test code = ALC) MG/DL 0-10 LACTIC ACID [id number] 13:50:00 Test Item Value Reference Range Interpretation Comments LACTIC ACID POC 0.97 MMOL/L 0.90-1.70 N Performed by certified (test code = LACTP) fire engine operator at [facility] [id number] 13:48:00 Test Item Value Reference Range Interpretation Comments GLUBED (test code = 88 MG/DL 65-99 N Performe d by certified GLUBED) fire engine operator at [facility] DRUG OF ABUSE SCREEN [id number] 13:43:00 Test Item Value Reference Interpretation Comments [...] by layton rader methods (i.e., GC/MS) at [facility]. Results of scre en may not be usedin crimi nal justice, job performance or professionalcre dential review, or infa nt custody issues. Negativ e [place] Level ng/ml ------- ----- Cocaine 300 Methamp hetamine (Ecstacy) 500 Cannabinoids (THC) 50 Amphetamine 1000 Barbiturate s 200 Benzodia zepines 200 Opiat es 300 Ph encyclidine (PCP) 25 UR HCG [id number] 13:39:00 Test Item Value Reference Range Interpretation [...] using aquantitative h CG assay. UA RFLX [id number] 13:38:00 Test Item Value Reference Range Interpretation [...] Clean Catch (test code = UASPEC) UA [id number] 13:38:00 Test Item Value Reference Range Interpretation Comments UA WBC (test code = WBCU) #/hpf <10 UA RBC (test code = RBCU) #/hpf NONE SEEN UA SQUAMOUS CELLS (test code = SQU) #/lpf <100 UA RFLX [id number] 13:38:00 Test Item Value Reference Range Interpretation [...] Clean Catch (test code = UASPEC) UA [id number] 13:38:00 Test Item Value Reference Range Interpretation Comments UA WBC (test code = WBCU) #/hpf <10 UA RBC (test code = RBCU) #/hpf NONE SEEN UA SQUAMOUS CELLS (test code = SQU) #/lpf <100 CBC W/AUTO [id number] 13:26:00 Test Item Value Reference Range Interpretation [...] = BA#) 0.05 x10 3/uL 0.0-0.2 N [id number] 19:07:00 Test Item Value Reference Interpretation Comments Range LEVETIRACETAM 28.7 ug/mL 10.0-40.0 This test was developed and (test code = its performance LEVTAM) characteristics determined by [facility]. It has not been cleared orappro froylan by the Food and Drug Administration. Performed At: [facility] hospital[facility] [facility] [place]DATEL[place], [place] [id number] ra Larissa MENDOZA Ph:[phone] BASIC METABOLIC [id number] 04:58:00 Test Item Value Reference Range Interpretation [...] code = 8.9 MG/DL 8.7-10.5 N CA) [id number] 04:58:00 Test Item Value Reference Range Interpretation Comments MAGNESIUM (test code = MAG) 1.9 MG/DL 1.8-2.4 N CBC W/AUTO [id number] 04:08:00 Test Item Value Reference Range Interpretation [...] 0.0-0.2 N NRBC#) - MRI BRAIN W/O [id number] 13:51:00 Patient Name: HEATHER HOPE Unit No: [id number] EXAMS: CPT CODE: [id number] MRI BRAIN W/O CONTRAST 46442 Reason: sz INDICATION: Seizure COMPARISON: CT brain, [...] MD Technologist: Andre Self MRI Trscrpt Dt/ (9695)t.GAVIOTAR.DW6 Orig Print D/T: S: 09/17/2018 (2972) [facility] CntNAME: HEATHER HOPE NOVEMBER [address] PHYS: Felecia Dominguez MD [facility] [place] [address] : 1990 AGE: 27 SEX: F LOC: D.D313 1 PHONE #: [phone] EXAM DATE: 09/17/2018 STATUS: ADM IN FAX #: RAD NO: DC Dt: PAGE 1 Signed [id number] 07:25:00 Test Item Value Reference Range Interpretation Comments PROLACTIN (test code = 24.6 ng/mL 4.8-23.3 H Perfo rmed At: HD PROLAC) [facility] [address] [id number] Sb Man MD Ph:[phone] UA RFLX MICROSCOPIC [id number] 19:02:00 Test Item Value Reference Range Interpretation [...] UACULT) URINE SOURCE: Clean CatchUA RFLX MICROSCOPIC [id number] 18:56:00 Test Item Value Reference Range Interpretation [...] (test code = UACULT) URINE SOURCE: Clean [id number] 15:56:00 Test Item Value Reference Range Interpretation Comments CK (test code = CKT) 34 Units/L 26-192 N BASIC METABOLIC [id number] 12:57:00 Test Item Value Reference Range Interpretation [...] code = 8.6 MG/DL 8.7-10.5 L CA) [id number] 12:57:00 Test Item Value Reference Range Interpretation Comments CK (test code = CKT) 32 Units/L 26-192 N CBC W/AUTO [id number] 12:33:00 Test Item Value Reference Range Interpretation [...] 3/uL 0.0-0.2 N NRBC#) TOTAL IRON BINDING [id number] 05:50:00 Test Item Value Reference Range Interpretation Comments SERUM IRON (test code = IRON) 17 MCG/DL 50-170 L TOTAL IRON BINDING CAPACITY (test 363 MCG/DL 280-400 N code = TIBC) IRON SATURATION (test code = 5 % 15-50 L FESAT) [id number] 05:50:00 Test Item Value Reference Range Interpretation Comments FERRITIN (test code = LULI) 11 NG/ML 3-105 N HEPATIC FUNCTION [id number] 05:32:00 Test Item Value Reference Range Interpretation [...] code = ALKP) - CT HEAD/BRAIN W/O [id number] 20:19:00 Patient Name: HEATHER HOPE Unit No: [id number] EXAMS: CPT CODE: [id number] CT HEAD/BRAIN W/O CONT 63021 Reason: seizure TECHNIQUE: Contiguous 5 mm images [...] Heath Technologist: Edel Cade CT Trscrpt Dt/ (2018)t.DKW Orig Print D/T: S: 09/14/2018 (2021) CTDI: DLP: [facility] NAME: HEATHER HOPE [place] [address] [facility] PHYS: NGA. - Keanu Váz[place] [address] : 1990 AGE: 27 SEX: F LOC: D.KIN PHONE#: [phone] EXAM DATE: 09/14/2018 STATUS: REG ER FAX #: RAD NO: DC Dt: PAGE 1 Signed Report- XR CHEST 1 [id number] 20:18:00 Patient Name: HEATHER HOPE Unit No: [id number] EXAMS: CPT CODE: [id number] XR CHEST 1 V 19811 Reason: screen for pneumonia FINDINGS: Single view ofthe chest shows normal heart size and pulmonary vasculature. The lungs are clear bilaterally. There is no focal infiltrate, pleural effusion or pneumothorax. IMPRESSION: No a cute cardiopulmonary findings at 2018 Reported and signed by: Lashell Jimenez MD CC: Keanu Vázquez MD; Cristiane Heath Technologist: Edel Cade CT Trscrpt Dt/ (2017)t.SDR.DKW Orig PrintD/T: S: 09/14/2018 (2020) [facility] NAME: HEATHER HOPE NOVEMBER [address] [facility] PHYS: WONGSAVANAH. - Keanu Vázquez [place] [address] : 1990 AGE: 27 SEX: F LOC: MATT PHONE #: [phone] EXAM DATE: STATUS: REG ER FAX #: RAD NO: DC Dt: PAGE 1 Signed ReportHCG SERUM [id number] 20:04:00 Test Item Value Reference Range Interpretation [...] using aquantitative h CG assay. BASIC METABOLIC [id number] 19:51:00 Test Item Value Reference Range Interpretation [...] 9.3 MG/DL 8.7-10.5 N CA) CBC W/AUTO [id number] 19:46:00 Test Item Value Reference Range Interpretation [...] BA#) 0.05 x10 3/uL 0.0-0.2 N BLOOD [id number] 10:00:00 Test Item Value Reference Range Interpretation Comments CULTURE (BEAKER) (test No growth in 5 days code = 1095) HCG, QUANTITATIVE, [id number] 15:37:00 Test Item Value Reference Range Interpretation Comments GONADOTROPIN, CHORIONIC (HCG) 36028 mIU/mL 0-10 H QUANT (BEAKER) (test code = 649) Non- Females: <10 mIU/mL Females: Gestation Age Reference Range(mIU/mL) 0.2-1 Week 5-50 1-2 Weeks 50-500 2-3 Weeks 100-5,000 3-4Weeks 500-10,000 4-5 Weeks 1,000-50,000 5-6 Weeks 10,000-100,000 6-8 Weeks 15,000-200,000 2-3 Months 10,000-100,000COMPREHENSIVE METABOLIC [id number] 15:10:00 Test Item Value Reference Range Interpretation [...] PATIEN TS. CBC W/PLT COUNT & AUTO [id number] 14:53:00 Test Item Value Reference Range Interpretation [...] (test code = 2801) U/S, , FIRST [id number] 07:52:00Reason for exam:-> Reason for exam:->please include [...] 1 day. An embryonic pole is evident. Selz-rump length measures 0.63 cm, correlating with estimated [...] age of 7 weeks 3 days. Signed: Wells, Lashell MDReport Verified Date/Time: 05/17/2017 07:52:37 Reading Location: [facility] B1 [id number] Ortho Consult Reading Room PREGNANCY SCREEN, [id number] 05:28:00 Test Item Value Reference Range Interpretation Comments TEST URINE (BEAKER) (test Positive code = 583) MR, BRAIN, WITHOUT [id number] 18:54:00Reason for exam:->Stroke evaluationFINAL REPORT MRI brain [...] Parra Verified Date/Time: 05/15/2017 18:54:11 Reading Location: [facility] Radiology Reading Room EEG AWAKE AND [id number] 12:08:00Reason for exam:->? nonconvulsive statusDATE OF TEST: 05/15/2017DATE OF REPORT 05/15/2017 ACC: [id number] EE Start time: 1034 Stop time: 1054 ICD-10: R56.9CPT Code: 54347AIRTRGI: 26 y/o woman with epilepsy found down [...] recordings.Marika Smith M.D.Neurophysiology FellowSwathi Harper M.D.Neurophysiology Attending [id number] 04:27:00 Test Item Value Reference Range Interpretation Comments PROCALCITONIN (BEAKER) (test code 0.17 ng/mL <0.05 H = 3036) SEPSIS RISK (ng/mL)Low: 0.05-0.50Intermediate: 0.51-2.00High: >=[id number] 03:15:00 Test Item Value Reference Range Interpretation Comments PHOSPHORUS (BEAKER) (test code = 3.1 mg/dL 2.3-4.7 604) [id number] 03:15:00 Test Item Value Reference Range Interpretation Comments MAGNESIUM (BEAKER) (test code = 1.9 mg/dL 1.6-2.6 627) BASIC METABOLIC [id number] 03:15:00 Test Item Value Reference Range Interpretation [...] code = 380) LACTIC ACID, VENOUS, WHOLE [id number] 03:09:00 Test Item Value Reference Range Interpretation Comments LACTATE BLOOD VENOUS (2) (BEAKER) 0.6 mmol/L 0.5-2.2 (test code = 2872) Effective 10/17/2015: Units/Reference Range ChangeNew: 0.5-2.2 mmol/L Previous: 5-20 mg/dLPROTHROMBIN TIME/[id number] 03:07:00 Test Item Value Reference Range Interpretation [...] = 2801) RAD, CHEST, 1 VIEW, NON [id number] 01:06:00Reason for exam:->possible infectionShould this be performed at the bedside?->YesFINAL REPORT History: Infection. Comparison: None. Findings: A single view of the chest is submitted. The cardiomediastinal contours are unremarkable. There is no focal consolidation, pneumothorax, large pleural effusion or evidence of overt pulmonary edema. There is no acute bony abnormality. Impression: No acute abnormality. Signed: Shabnam Dailey Verified Date/Time: 05/15/2017 01:06:06 Reading Location: [address] Reading Room
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
[2020-05-15] MEDS ORDERED: NA CHLORIDE 0.9% 1,000 ML ONE (23:23)
[2020-05-15] MEDS ORDERED: NA CHLORIDE 0.9% 100 ML ONE (23:23)
[2020-05-15] MEDS ORDERED: LEVETIRACETAM 500 MG/5 ML VIAL IV ONE (23:23)
[2020-05-16] LABS: Absolute Lymphocytes (CBC) 3.2 K/uL (0.7-4.9); Basophils % 0.8 % (0-1.3); Hematocrit 32.6 % (36.0-45.0); MPV 8.2 fL (7.6-11.3); RBC Red Blood Cell Count 3.81 M/uL (3.86-4.86)
[2020-05-16 00:03] LABS: Protime INR 0.93
[2020-05-16 00:20] LABS: ALT/SGPT 28 U/L (12-78); AST/SGOT 22 U/L (15-37); Albumin 3.7 g/dL (3.4-5.0); Alkaline Phosphatase 76 U/L (45-117); BUN Blood Urea Nitrogen 6 mg/dL (7-18); Bicarbonate 22 mmol/L (21-32); Bilirubin Direct 0.1 mg/dL (0-0.2); Bilirubin Total 0.2 mg/dL (0.2-1.0); Glucose Level 101 mg/dL (74-106); Potassium 3.5 mmol/L (3.5-5.1); Protein, Total 7.1 g/dL (6.4-8.2); Sodium Level 140 mmol/L (136-145)
[2020-05-16 00:23] LABS: Barbiturates NEGATIVE (NEGATIVE); Benzodiazepines POSITIVE (NEGATIVE); Cocaine NEGATIVE (NEGATIVE); METHAMPHETAM NEGATIVE (NEGATIVE); Methadone NEGATIVE (NEGATIVE); Opiates NEGATIVE (NEGATIVE); Phencyclidine NEGATIVE (NEGATIVE); THC Cannibis NEGATIVE (NEGATIVE)
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
[2020-05-16] MEDS ORDERED: IBUPROFEN 400 MG TAB ONE (07:13)
--- NOTE | 2020-05-17 06:10 | EKG ---
Test Date: 2020-05-15 Test Time: 23:01:36 Cork Cutter: YOLANDE MEASUREMENT RESULTS: Intervals: Rate: 100 MI: 150 QRSD: 72 QT: 344 QTc: 443 [place]: P: 47 MI: 150 QRS: 16 T: 11 INTERPRETIVE STATEMENTS: Normal sinus rhythm Normal ECG Compared to ECG 05/03/2020 12:28:21 Myocardial infarct finding no longer present Electronically Signed On 05-17-20 06:07:29 GEOGRAPHIC ANALYST by Mrerill Guzman
== END 2020-05-16 07:35 | disposition home or self-care (01) ==
LOC: ER 22:59
DX: F33.9 Major depressive disorder, recurrent, unspecified (principal); G40.909 Epilepsy, unspecified, not intractable, without status epilepticus
CPT/HCPCS: 96365; 93005; 85025; 80048; 36415; 80320; 80329 ×2; 85610; 82947; 80076; 80307 ×8; 85730; 51702; 99284; 96366; J1953; J7030

== ENCOUNTER 2020-05-16 14:56 | Emergency (ER) | payer OTHER ==
--- OUTSIDE RECORDS SUMMARY | 2020-05-16 15:07 | XMS REPORT | Clinical Summary ---
:1990 Author Organization [facility] Address [address] [place] [address] Care Team Providers Name Role Phone Asked, [...] Ebrahim, MD 10/31/2019 Travel 10/24/2019 Travel after 05/16/2019 Immunizations Name Administration Dates Next Due Tdap [...] No / Unsure 05/14/2020 8:10 AM [employer] someone who was confirmed or suspected to have Coronavirus / COVID-19? Last Filed Vital Signs Vital Sign Reading Time Taken Comments Blood Pressure 127/74 05/02/2020 5:45 PM [employer] Pulse 82 05/02/2020 5:45 PM [employer] Temperature 36.9 C (98.5 F) 05/02/2020 2:17 PM [employer] Respiratory Rate 14 05/02/2020 5:45 PM [employer] Oxygen Saturation 100% 05/02/2020 5:45 PM [employer] Inhaled Oxygen Concentration - - Weight 78 kg (172 lb) 05/02/2020 2:28 PM [employer] Height 160 cm (5' 3") 05/02/2020 2:28 PM [employer] Body Mass Index 30.47 05/02/2020 2:28 PM [employer] Plan of Treatment Health Maintenance Due Date Last Done Comments CERVICAL CANCER SCREENING 2010 INFLUENZA VACCINE 01/14/2020 Procedures Procedure Name Priority Date/Time Associated Comments Diagnosis COVID-19 QUALITATIVE STAT 05/02/2020 4:10 Res ults for this PCR PM [employer] procedure are i n the results section. URINE CULTURE STAT 05/02/2020 3:51 Results fo r this PM [employer] procedure are i n the results section. CT HEAD WO CONTRAST STAT 05/02/2020 3:47 Resu lts for this PM [employer] procedure are i n the results section. SMEAR REVIEW STAT 05/02/2020 3:30 Results for this PM [employer] procedure are i n the results section. ESTIMATED GFR STAT 05/02/2020 3:30 Results fo r this PM [employer] procedure are i n the results section. BASIC METABOLIC PANEL STAT 05/02/2020 3:30 Re sults for this PM [employer] procedure are i n the results section. HCG QUALITATIVE, SERUM STAT 05/02/2020 3:30 R esults for this SCREEN PM [employer] procedure are i n the results section. HC COMPLETE BLD COUNT STAT 05/02/2020 3:30 Re sults for this W/AUTO DIFF PM [employer] procedure are i n the results section. URINALYSIS SCREEN AND STAT 05/02/2020 3:28 Re sults for this MICROSCOPY, WITH PM [employer] procedure a re in REFLEX TO CULTURE [...] Routine 04/06/2020 4:50 Res ults for this (NUT TAPPER) PM CDT procedure are i n the [...] are i n the results section. after 05/16/2019 Results COVID-19 qualitative PCR (05/02/2020 4:10 PM [employer])Only the most recent of3 resultswithin the time period is included. Interpretation Negative results do not prec lude 2019-nCoV infection and should not be used as the sole basis for treatment or other patient management decisions. Negative results must be combined with clinical observations, patient history, and epidemiological OMAR information. [facility] COVID-19 qualitative Not-Detected Not-Detecte OMAR PCR result d [facility] COVID19 qualitative See link below for OMAR PCR PDF Lab JUDAISM ReportComment: Case HOSPITAL Number: [id number] Specimen Nasopharyngeal swab Performing Organization Address [facility] Phon e Number [facility] DEPARTMENT OF PATHOLOGY AND [address], [place] [address] [address] [facility] Urine culture (05/02/2020 3:51 PM [employer])Only the most recent of3 resultswithin the time period is included. Urine culture Mixed prem <=10-3 col/cc [facility] IST isolate Comment: HOSPITAL Specimen Information Specimen Source: Urine Specimen Site: Clean catch Specimen Urine Performing Organization Address [facility] Phon e Number [facility] DEPARTMENT OF PATHOLOGY AND [address], [place] [address] [facility] [address] [place] [address] CT Head Wo Contrast (05/02/2020 3:47 PM [employer])Only the most recent of4 results within the [...] No CT evidence of acute intracranial abnormality. [id number] Procedure Note Hm Interface, Radiology Results Incoming - 05/02/2020 3:57 PM [employer] EXAMINATION: CT HEAD WO CONTRAST CLINICAL HISTORY: [...] No CT evidence of acute intracranial abnormality. [id number] Performing Organization Address City/[facility] Code Phon e Number [facility] [address] [place] [address] Smear review (05/02/2020 3:30 PM [employer]) Pathologist Sig nature Platelet slide Sana adequate [facility] Enlarged platelets Moderate (A) [facility] Specimen Plasma Performing Organization Address City/State/[facility] Phon e Number [facility] DEPARTMENT OF PATHOLOGY AND [address], [place] [address] [facility] [address] [address] Estimated GFR (05/02/2020 3:30 PM [employer])Only the most recent of7 resultswithin the time period is included. Estimated GFR >=90 mL/min/1.73 [facility] Comment: m2 HOSPITAL Catergory Units [...] in 2014. Specimen Plasma Performing Organization Address [facility] Phon e Number [facility] DEPARTMENT OF PATHOLOGY AND [address], [place] [address] [address] CBC with platelet and differential (05/02/2020 3:30 PM [employer])Only the most recent of6 resultswithin the time period is included. WBC 10.69 4.50 - 11.00 [facility] k/uL HOSPITAL RBC 4.71 4.20 - 5.50 [facility] m/uL [facility] HGB 13.5 12.0 - 16.0 [facility] gdL [facility] HCT 42.4 37.0 - 47.0 % [facility] MCV 90.0 82.0 - 100.0 [facility] MCH 28.7 27.0 - 34.0 pg [facility] MCHC 31.8 31.0 - 37.0 [facility] gdL [facility] RDW - SD 41.3 37.0 - 55.0 fL [facility] MPV 10.0 8.8 - 13.2 fL [facility] Platelet count 260 150 - 400 k/uL [facility] Nucleated RBC 0.00 /100 WBC [facility] Neutrophils 65.7 39.0 - 69.0 % [facility] Lymphocytes 24.7 (L) 25.0 - 45.0 % [facility] Monocytes 7.3 0.0 - 10.0 % [facility] Eosinophils 1.3 0.0 - 5.0 % [facility] Basophils 0.7 0.0 - 1.0 % [facility] Immature granulocytes 0.3Comment: 0.0 - 1.0 % [facility] "Immature HOSPITAL granulocytes" (promyelocytes , myelocytes, metamyelocytes ) Specimen Plasma Performing Organization Address City/[facility] Phon e Number [facility] DEPARTMENT OF PATHOLOGY AND [address], [place] [address] [address] hCG qualitative, serum screen (05/02/2020 3:30 PM [employer]) hCG qualitative, NegativeComment: [facility] serum Sensitivity of HCG HOSPITAL test: 25 mIU/mL Specimen Blood Performing Organization Address City/[facility] Phon e Number [facility] DEPARTMENT OF PATHOLOGY AND [address], [place] [address] [place] [id number] [place] [address] Basic metabolic panel (05/02/2020 3:30 PM [employer])Only the most recent of4 results within the time period is included. Pathologist Sig nature Sodium 140 135 - 148 mEq/L [facility] L Potassium 3.7 3.5 - 5.0 mEq/L [facility] L Chloride 103 98 - 112 mEq/L [facility] CO2 25 24 - 31 mEq/L [facility] Anion gap 12@ANIO 7 - 15 mEq/L [facility] BUN 13 6 - 20 mg/dL [facility] Creatinine 0.70 0.50 - 0.90 mg/dL [facility] Glucose 93 65 - 99 mg/dL [facility] Calcium 9.6 8.3 - 10.2 mg/dL [facility] Specimen Plasma Performing Organization Address [facility] Phon e Number [facility] DEPARTMENT OF PATHOLOGY AND [address] [place] [address] [phone] [place] [address] Urinalysis screen and microscopy, with reflex to culture (05/02/2020 3:28 PM [employer])Only the most recent of3 resultswithin the time period is included. Specimen site Clean catch [facility] Color, UA Yellow [facility] Appearance, UA Clear [facility] Specific gravity, UA 1.035 1.001 - 1.035 [facility] pH, UA 5.0 5.0 - 8.5 [facility] Protein, UA Negative Negative [facility] Glucose, UA Negative Negative [facility] Ketones, UA Trace (A) Negative [facility] Bilirubin, UA Negative Negative [facility] Blood, UA Negative Negative [facility] Nitrite, UA Negative Negative [facility] Urobilinogen, UA <2.0 <2.0 [facility] Leukocyte esterase, Small (A) Negative [facility] Epithelial cells, UA 6 /HPF [facility] WBC, UA 10 (H) 0 - 4 /HPF [facility] RBC, UA 2 0 - 5 /HPF [facility] Bacteria, UA Few None seen [facility] Yeast, UA None seen [facility] Yeast with None seen [facility] pseudohyphae, UA HOSPITAL Specimen Urine Performing Organization Address City/[facility]/ZIP Code Phon e Number [facility] DEPARTMENT OF PATHOLOGY AND [address] [place] [address] [address] [address] POC glucose (04/06/2020 5:27 PM CDT)Only the most recent of2 resultswithin the time period is included. Pathologist Sig nature POC glucose 102 (H) 65 - 99 mg/dL [facility] Comment: HOSPITAL Intermediate Frame Tender Name: Gerber Mcdonald Device ID: [id number] Specimen Blood Performing Organization Address [facility] Phon e Number [facility] DEPARTMENT OF PATHOLOGY AND [address] [place] [address] [address] [address] SS-B antibody (04/06/2020 4:50 PM CDT) Sjogren's SS-B 0.6 0.0 - [address].9 [facility] SS-B antibody Negative [facility] interp Comment: JUDAISM SS-B/La antibody is seen in patients with Sjogre n syndrome, but may also be HOSPITAL positive with systemic lupus erythematosus (SLE), and systemic sclerosis. Specimen Serum Performing Organization Address City/[facility] Phon e Number [facility] DEPARTMENT OF PATHOLOGY AND [address] [place] [address] [address] [address] SS-A antibody (04/06/2020 4:50 PM CDT) Sjogren's SS-A <0.2 0.0 - 0.9 [facility] SS-A antibody Negative [facility] inter Comment: JUDAISM SS-A antibody is sensitive for Sjogren's syndrom e, but may also be positive HOSPITAL with systemic lupus erythematosus (SLE), and systemic sclerosis. Specimen Serum Performing Organization Address City/[facility]/ZIP [facility] Phon e Number [facility] DEPARTMENT OF PATHOLOGY AND [address] [place] [address] [address] [address] Matthew antibody (04/06/2020 4:50 PM CDT) Matthew antibody <0.2 0.0 - 0.9 [facility] Matthew antibody Negative [facility] interp Comment: JUDAISM Anti-Matthew antibodies occurs in 30-35% of [facility] lupus erythematosus HOSPITAL (SLE) cases, but is very specific for SLE. It may also present in mixed connective-tissue disease (MCTD). Specimen Serum Performing Organization Address City/State/ZIP Code Phon e Number [facility] DEPARTMENT OF PATHOLOGY AND [address] [place] [phone] Scl-70 antibody (04/06/2020 4:50 PM CDT) Scleroderma SCL-70 <0.2 0.0 - 0.9 [facility] Scl-70 antibody Negative [facility] interp Comment: JUDAISM Anti-Scl-70 (topoisomerase I) antibodies are found in patients with HOSPITAL systemic sclerosis (SSc or scleroderma), and have been reported to be predictive of diffuse cutaneous involvement. Anti-Scl- 70 antibodies may also be present in patients with systemic lupus erythe matosus (SLE). Specimen Serum Performing Organization Address City/[facility]/ZIP Code Phon e Number [facility] DEPARTMENT OF PATHOLOGY AND [address] [place] [phone] Ribonucleic antibody (NUT TAPPER) (04/06/2020 4:50 PM CDT) Ribonucleic <0.2 0.0 - 0.9 [facility] antibody (NUT TAPPER) [facility] Ribonucleic Negative [facility] antibody (NUT TAPPER) Comment: [facility] Anti-ribonucleic protein (anti-NUT TAPPER) antibodies a re typically found in HOSPITAL patients with mixed connective tissue disease, but can also be seen in patients with systemic lupus erythematosus (SLE) or sy stematic sclerosis. Specimen Serum Performing Organization Address City/State/ZIP Code Phon e Number [facility] DEPARTMENT OF PATHOLOGY AND [address] [place] [phone] Bernarda-1 antibody (04/06/2020 4:50 PM CDT) Bernarda-1 antibody <0.2 0.0 - 0.9 [facility] Bernarda-1 antibody Negative [facility] Comment: JUDAISM Anti-Bernarda-1 antibody is predominantly found in pat ients with polymyositis, HOSPITAL especially for those with interstitial pulmonary fibro sis. It can also be found in patients with dermatomyositis. Specimen Serum Performing Organization Address City/[facility] Phon e Number [facility] DEPARTMENT OF PATHOLOGY AND [address] [place] [phone] Centromere antibody (04/06/2020 4:50 PM CDT) Pathologist [facility] Centromere <0.2 0.0 - 0.9 [facility] Centromere Negative [facility] antibody interp Comment: [facility] Anti-centromere antibodies are found in patients with systemic sclerosis (SSc or scleroderma), especially for those with limite d cutaneous or CREST syndrome. Anti-centromere antibodies may also be found in patients with other rheumatic or connective tissue diseases. Specimen Serum Performing Organization Address City/[facility] Phon e Number [facility] DEPARTMENT OF PATHOLOGY AND [address] [place] [address] [address] Double-stranded DNA (dsDNA) antibodies, Crithidia (04/06/2020 4:50 PM CDT) Pathologist [facility] nature DNA Ab screen Not Detected Not-Detected [facility] Specimen Blood Performing Organization Address City/[facility] Phon e Number [facility] DEPARTMENT OF PATHOLOGY AND [address] [place] [phone] Homocystine, plasma (04/05/2020 5:40 PM CDT)Only the most recent of3 results within the time period is included. Pathologist [facility] Homocysteine 6.7 0.0 - 15.0 [facility] Comment: umol/L HOSPITAL The risk for coronary vascular disease increases progr essively with homocysteine concentration. A 3.4 times greater risk is associated with a homocysteine concentration of greate r than 15.8 umol/L as compared to a concentration below 14.1 umol/L. Specimen is slightly hemolyzed. Interpret results ac cordingly. Specimen Plasma Performing Organization Address City/[facility]/ZIP Code Phon e Number [facility] DEPARTMENT OF PATHOLOGY AND [address], [place] [address] [address] Potassium level (04/05/2020 5:40 PM CDT) Pathologist Sig nature Potassium 3.7 3.5 - 5.0 mEq/L [facility] L Specimen Plasma Performing Organization Address City/[facility] Code Phon e Number [facility] DEPARTMENT OF PATHOLOGY AND [address], [place] [address] [address] EEG (routine) (04/05/2020 11:03 AM CDT) Narrative [...] resultswithin the time period is included. Pathologist [facility] Syphilis total Non-reactiveComment Non-reactive [facility] antibody : No serological HOSPITAL evidence of syphilis infection. Specimen Serum Narrative Performed At Unable to perform testing, specimen is [facility] DEPARTMENT OF PATHOLOGY AND GENOMIC _HEMOLYZED___. [...] Organization Address City/State/ZIP Code Phon e Number [facility] DEPARTMENT OF PATHOLOGY AND [address] [place] [address] [address] [address] HIV Ag/Ab combination (04/05/2020 4:00 AM CDT)Only the most recent of2 results within the time period is included. [facility] HIV Ag/Ab combination Non-reactive Non-reactive [facility] Specimen Blood Performing Organization Address City/[facility] Phon e Number [facility] DEPARTMENT OF PATHOLOGY AND [address] [place] [address] [address] [address] Vitamin D 25 hydroxy level (04/05/2020 4:00 AM CDT)Only the most recent of2 resultswithin the time period is included. Pathologist [facility] Vitamin D, 12.1 (L) 30.0 - 150.0 [facility] 25-hydroxy Comment: ng/mL HOSPITAL This [...] alternative methods. Specimen Blood Performing Organization Address City/[facility] Code Phon e Number [facility] DEPARTMENT OF PATHOLOGY AND [address] [place] [phone] Rheumatoid factor (04/05/2020 4:00 AM CDT)Only the most recent of2 results within the time period is included. [facility] Rheumatoid factor <10 0 - 13 IU/mL [facility] Specimen Plasma Narrative Performed At Unable to perform testing, specimen is [facility] DEPARTMENT OF PATHOLOGY AND [facility] _HEMOLYZED___. [employer]IC[employer] requested for __K__ (tests). __ENOC [id number]/[id number] (name/location) notified by ___JT_ (tech ID) at __ 04/05/2020 07:01 __ (date/time). Credit issued. Performing Organization Address City/[facility] Phon e Number [facility] DEPARTMENT OF PATHOLOGY AND [address] [place] [address] [address] C-reactive protein (04/05/2020 4:00 AM CDT)Only the most recent of2 results within the time period is included. [facility] CRP <0.30 0.00 - 0.50 mg/dL [facility] Specimen Plasma Performing Organization Address City/[facility]/ZIP [facility] Phon e Number [facility] DEPARTMENT OF PATHOLOGY AND [address] [place] [address] [address] T3 (04/05/2020 4:00 AM CDT) Pathologist Sig [facility] T3 89 80 - 200 ng/dL [facility] Specimen Plasma Performing Organization Address City/[facility] Phon e Number [facility] DEPARTMENT OF PATHOLOGY AND [address] [place] [address] [phone] [address] Thyroid stimulating hormone (04/05/2020 4:00 AM CDT)Only the most recent of2 resultswithin the time period is included. Pathologist Sig nature TSH 1.26 0.27 - 4.20 uIU/mL [facility] ITAL Specimen Plasma Performing Organization Address [facility] Phon e Number [facility] DEPARTMENT OF PATHOLOGY AND [address] [place] [phone] T4, free (04/05/2020 4:00 AM CDT)Only the most recent of2 resultswithin the time period is included. Pathologist Sig [facility] T4, free 1.1 0.9 - 1.7 ng/dL [facility] L Specimen Plasma Performing Organization Address [facility] Phon e Number [facility] DEPARTMENT OF PATHOLOGY AND [address] [place] [address] [place] [phone] Magnesium level (04/05/2020 4:00 AM CDT)Only the most recent of3 resultswithin the time period is included. Pathologist Sig nature Magnesium 1.8 1.6 - 2.6 mg/dL [facility] L Specimen Plasma Performing Organization Address City/[facility] Phon e Number [facility] DEPARTMENT OF PATHOLOGY AND [address] [place] [address] [address] [address] Folate level (04/05/2020 4:00 AM CDT)Only the most recent of2 resultswithin the time period is included. Pathologist Sig nature Folate 14.0 4.8 - 24.2 ng/mL [facility] Specimen Serum Performing Organization Address City/[facility] Phon e Number [facility] DEPARTMENT OF PATHOLOGY AND [address] [place] [address] [address] [address] Vitamin B12 level (04/05/2020 4:00 AM CDT)Only the most recent of2 results within the time period is included. Vitamin B12 [phone] 946 [facility] Comment: pg/mL HOSPITAL Significant overlap exists between normal and deficien cy states. However, most patients with deficiencies will have Ser um B12 <200 pg/mL. Specimen Serum Performing Organization Address City/[facility] Phon e Number [facility] DEPARTMENT OF PATHOLOGY AND [address] [place] [phone] [address] [address] Sedimentation rate (04/04/2020 9:00 PM CDT)Only the most recent of2 results within the time period is included. Pathologist Sig nature Sedimentation rate 6 0 - 20 mm/hr [facility] Specimen Plasma Performing Organization Address [facility] Phon e Number [facility] DEPARTMENT OF PATHOLOGY AND [address] [place] [address] [phone] [address] CBC hemogram (04/04/2020 9:00 PM CDT) Pathologist Sig nature WBC 7.66 4.50 - 11.00 k/uL [facility] RBC 4.23 4.20 - 5.50 m/uL [facility] HGB 12.2 12.0 - 16.0 g/dL [facility] HCT 36.8 (L) 37.0 - 47.0 % [facility] MCV 87.0 82.0 - 100.0 fL [facility] MCH 28.8 27.0 - 34.0 pg [facility] MCHC 33.2 31.0 - 37.0 g/dL [facility] RDW - SD 40.3 37.0 - 55.0 fL [facility] MPV 10.1 8.8 - 13.2 fL [facility] Platelet count 247 150 - 400 k/uL [facility] Nucleated RBC 0.00 /100 WBC [facility] Specimen Plasma Performing Organization Address City/[facility] Phon e Number [facility] DEPARTMENT OF PATHOLOGY AND [address] [place] [address], [place] [phone] GENOMIC MEDICINE [facility] [address] [place] [address] Keppra (Levetiracetam) level (04/04/2020 8:15 PM CDT)Only [...] vomiting. This levetiracetam (Keppra) immunoassay uses the [employer] Per[employer] reagents, which has known cross-reactivity with the dr norma collinsracetam (Briviact) and may report inaccurate resu lts. Patients transitioning from levetiracetam to brivarace goldstein or those who are using both medications should not monitor drug concentrations with the [employer] assay. These p atients should be monitored using a validated chromatographic methodology that distinguishes between drugs to determine drug con centrations. Performed By: [facility] [address] [place] [address] Meat And Poultry Inspector: Gege Pierson MD Specimen Serum Performing Organization Address City/State/[facility] Code Phon e Number [facility] [address] [place] [address] [facility] REF LAB [address] [place] [address] Urine drugs of abuse screen (04/04/2020 7:19 PM CDT)Only the most recent of2 resultswithin the time period is included. Amphetamine screen, Negative [facility] urine [facility] Barbiturate screen, Negative [facility] urine [facility] Benzodiazepine Positive (A) [facility] screen, [facility] Cocaine screen, urine Negative [facility] Methadone metabolite Negative [facility] (EDDP), urine [facility] Opiates screen, urine Negative [facility] Oxycodone screen, Negative [facility] urine [facility] Phencyclidine screen, Negative [facility] urine [facility] Tricyclic screen, Negative [facility] urine [facility] Cannabinoid screen, Negative [facility] urine Comment: JUDAISM Drug screen minimum concentration [...] requir ed. Specimen Urine Performing Organization Address [facility] Phon e Number [facility] DEPARTMENT OF PATHOLOGY AND [address] [place] [address] [phone] [address] Prolactin level (04/04/2020 7:07 PM CDT)Only the most recent of2 resultswithin the time period is included. Pathologist Sig nature Prolactin 13 5 - 23 ng/mL [facility] Specimen Plasma Performing Organization Address [facility] Phon e Number [facility] DEPARTMENT OF PATHOLOGY AND [address] [place], [place] [phone] [address] [address] ECG 12 lead (04/04/2020 7:02 PM CDT)Only the most recent of2 resultswithin the time period is included. Pathologist Sig nature Ventricular rate 77 [facility] Atrial rate 77 [facility] ME interval 154 [facility] QRSD interval 82 [...] is no t available. Performing Organization Address [facility] Phon e Number [facility] MUSE [address] [place] [phone] CRITICAL CARE (04/04/2020 6:48 PM CDT) Narrative Performed At Max Rno MD 04/20/2020 3:37 PM Critical Care Performed by: Enoc Byers Authorized by: Max Ron MD Critical care provider statement: Critical care time (minutes): 20 Critical care was necessary to treat or prevent imminent or life-threatening deterioration of the following condit ions: CERTIFIED PHYSICIAN'S ASSISTANT failure or compromise Critical care was time [...] Lactic acid 1.1 0.5 - 2.2 mmol/L [facility] Specimen Plasma Performing Organization Address [facility] Phon e Number [facility] DEPARTMENT OF PATHOLOGY AND [address] [place], [place] [phone] [address] [address] Phosphorus level (04/04/2020 6:33 PM CDT) Pathologist Sig nature Phosphorus 3.7 2.4 - 4.5 mg/dL [facility] Specimen Plasma Performing Organization Address [facility] Phon e Number [facility] DEPARTMENT OF PATHOLOGY AND [address] [place] [address] [phone] [address] Comprehensive metabolic panel (04/04/2020 6:33 PM CDT)Only the most recent of3 resultswithin the time period is included. Sodium 138 135 - 148 [facility] mEq/L [facility] Potassium 3.6 3.5 - 5.0 [facility] mEq/L [facility] Chloride 105 98 - 112 [facility] mEq/L [facility] CO2 22 (L) 24 - 31 mEq/L [facility] Anion gap 11@ANIO 7 - 15 mEq/L [facility] BUN 7 6 - 20 mg/dL [facility] Creatinine 0.46 (L) 0.50 - 0.90 [facility] mg/dL HOSPITAL Glucose 96 65 - 99 mg/dL [facility] Calcium 9.2 8.3 - 10.2 [facility] mg/dL [facility] Protein 7.1 6.3 - 8.3 [facility] Comment: g/dL [facility] [place] 4.6-7.0 g/dL 1 week 4.4-7.6 g/dL 7 months-1year 5.1-7.3 g/dL 1-2 years 5.6-7.5 g/dL >3 years 6.0-8.0 g/dL 18-150 6.3-8.3 g/dL Albumin 3.8 3.5 - 5.0 [facility] g/dL [facility] A/G ratio 1.2 0.7 - 3.8 [facility] Alkaline phosphatase 64 35 - 104 U/L [facility] AST 20 10 - 35 U/L [facility] ALT 14 5 - 50 U/L [facility] Total bilirubin 0.4 0.0 - 1.2 [facility] mg/dL [facility] Specimen Plasma Performing Organization Address City/State/[facility] Code Phon e Number [facility] DEPARTMENT OF PATHOLOGY AND [address] [place], [place] [address] GENOMIC MEDICINE [facility] [address] [place] [phone] PET Brain Metabolic Eval (03/30/2020 1:51 PM [...] cerebellar hypometabolism sugg ests a pharmacologic effect. [facility]-[id number] Procedure Note Interface, Radiology Results Incoming - [...] cerebellar hypometabolism sugg ests a pharmacologic effect. [facility]-[id number] Performing Organization Address City/State/ZIP Code Phon e Number [facility] [address] [place] [address] MRI Brain W Wo Contrast (03/27/2020 1:50 [...] 1Tx/32Rx head coil. Acquired sequences include MPRAGE, [id number], T2 JAEL, T2 FLAIR, SWI, and DTI [...] abnormality identified to explain patien t's seizures. [facility]-[id number] Procedure Note Hm Interface, Radiology Results Incoming - 03/28/2020 2:52 PM CDT EXAMINATION: MRI BRAIN W WO CONTRAST CLINICAL HISTORY: R56.9 Unspecified con vulsions, Seizures COMPARISON: Brain MRI on 11/13/[address] on 03/12/2020. TECHNIQUE: High-resolution brain MRI wit hout and with intravenous gadolinium contrast acquired using 7T MRI with 1Tx/32Rx head coil. Acquired sequences include MPRAGE, [id number], T2 JAEL, T2 FLAIR, SWI, and DTI [...] structural abnormality identified to explain patient's seizures. [facility]-[id number] Performing Organization Address City/State/ZIP Code Phon e Number [facility] [address] [place] [address] Epilepsy/Seizure monitoring (03/15/2020 12:14 PM CDT) Narrative [...] was recorded simultaneously with video throughout the [facility]. The EEG was visually inspected and analyzed [...] of the EEG. Events detected by computer riyk sis that were not determined by visual [...] time period is included. Manual differential PERFORMED [facility] Neutrophils 51.0 39.0 - 69.0 % [facility] Lymphocytes 34.0 25.0 - 45.0 % [facility] Monocytes 13.0 (H) 0.0 - 10.0 % [facility] Eosinophils 2.0 0.0 - 5.0 % [facility] Basophils 0.0 0.0 - 1.0 % [facility] Metamyelocytes 0 % [facility] Promyelocytes 0 % [facility] Platelet slide review Asna adequate [facility] Anisocytosis Moderate [facility] Ovalocytes Moderate [facility] Enlarged platelets Moderate (A) [facility] Specimen Performing Organization Address City/State/ZIP Code Phon e Number [facility] DEPARTMENT OF PATHOLOGY AND [address] [place], [place] [address] GENOMIC MEDICINE [facility] [address] [place] [address] Continuous EEG monitoring (11/15/2019 1:22 AM CDT) [...] capacity (11/13/2019 4:00 AM CDT) Pathologist Sig formerly [facility] Iron level 20 (L) 37 - 145 ug/dL [facility] Iron binding capacity 335 200 - 400 ug/dL [facility] % Saturation 6.0 (L) 15.0 - 38.0 % [facility] Specimen Blood Performing Organization Address City/[facility] Phon e Number [facility] DEPARTMENT OF PATHOLOGY AND [address] [place] [address] [phone] [address] Ferritin level (11/13/2019 4:00 AM CDT) Pathologist Sig nature Ferritin level <13 (A) 13 - 150 ng/mL [facility] Specimen Blood Performing Organization Address City/[facility] Phon e Number [facility] DEPARTMENT OF PATHOLOGY AND [address] [place] [address] [phone] [address] MARCELINO titer (11/12/2019 7:40 PM CDT) Pathologist Sig nature MARCELINO titer 1:160 (A) Not-Detected [facility] MARCELINO pattern Homogeneous (A) Not-Detected [facility] Specimen Blood Performing Organization Address [facility] Phon e Number [facility] DEPARTMENT OF PATHOLOGY AND [address] [place] [address] [phone] [address] MARCELINO (11/12/2019 7:40 PM CDT) MARCELINO screen Positive (A) Negative [facility] Comment: HOSPITAL Test performed using NOVA Lite DAPI MARCELINO kit (Indirect Immunofluorescence Assay) for Anti-Nuclear Antibody on ConsortiEXA-Lyser 160 Analyzer. Specimen Blood Performing Organization Address City/[facility] Phon e Number [facility] DEPARTMENT OF PATHOLOGY AND [address] [place] [address] [phone] [address] Creatine kinase, total (CPK) (11/12/2019 7:40 PM CDT) Pathologist Sig nature Creatine kinase 56 26 - 192 U/L [facility] Specimen Performing Organization Address City/[facility]/ZIP [facility] Phon e Number [facility] DEPARTMENT OF PATHOLOGY AND [address] [place] [address] [phone] [address] Cortisol level, random (11/12/2019 7:40 PM CDT) Cortisol, random 2 ug/dL [facility] Comment: HOSPITAL Reference Ranges are not established for non-timed Cor tisol levels. Reference Range for Timed Cortisol: 6 - 10 AM 6 - 18 ug/d l 4 - 8 PM 3 - 11 ug/ dl Specimen Blood Performing Organization Address City/State/ZIP Code Phon e Number [facility] DEPARTMENT OF PATHOLOGY AND [address] [place], [place] [address] GENOMIC MEDICINE [facility] [address] [place] [address] CT Cervical Spine Wo Contrast (11/12/2019 6:12 [...] ied in the cervical spine. [facility]-[id number] Procedure Note Interface, Radiology Results Incoming - [...] ied in the cervical spine. [facility]-[id number] Performing Organization Address [facility]/ZIP Code Phon e Number [facility] [address] [place] [address] CT Maxillofacial Wo Contrast (11/12/2019 6:09 PM [...] The paranasal sinuses are clear. [facility]-[id number] Procedure Note Hm Interface, Radiology Results Incoming [...] The paranasal sinuses are clear. [facility]-[id number] Performing Organization Address [facility]/ZIP Code Phon e Number [facility] [address] [place] [address] XR Chest 1 Vw Portable (11/12/2019 5:35 [...] There is no acute cardiopulmonary dis ease. [id number] Procedure Note Hm Interface, Radiology Results Incoming [...] There is no acute cardiopulmonary dis ease. [id number] Performing Organization Address [facility]/ZIP [facility] Phon e Number [facility] [address] [place] [phone] Alcohol level, blood (11/12/2019 5:04 PM CDT) Alcohol None Detected mg/dL [facility] Comment: HOSPITAL Normal None Detected Legal Intoxication in [place] 80 mg/dL (0.08%) - Whole Blood Toxic Concentration 200 mg/dL (0.2%) Potentially Fatal 350 - 500 mg/dL (0. 35 - 0.5%) Alcohol percent None Detected % [facility] Specimen Blood Performing Organization Address [facility] Phon e Number [facility] DEPARTMENT OF PATHOLOGY AND [address] [place] [phone] GENOMIC MEDICINE [address] [address] hCG qualitative, urine screen (11/12/2019 2:44 PM CDT) hCG qualitative, NegativeComment: [facility] urine Sensitivity of HCG HOSPITAL test: 25 mIU/mL Specimen Urine Performing Organization Address City/[facility] Phon e Number [facility] DEPARTMENT OF PATHOLOGY AND [address] [place] [address] [phone] [address] after 05/16/2019 Advance Directives For more information, please contact: [phone] Type Date Recorded Patient Regional Economic Liaison Explanati on Advance Directives, Living 05/02/2020 4:24 PM Will and Medical Power of Technical Instructor Course Developer
--- OUTSIDE RECORDS SUMMARY | 2020-05-16 15:07 | XMS REPORT | Clinical Summary ---
:1990 Author Organization [facility] Address [address] [place] [address] Care Team Providers Name Role Phone Unavailable Primary Care Provider Unavailable Allergies No Known Allergies Medications Medication Sig Dispensed Refills Start Date End Date Status levETIRAcetam (KEPPRA) Take 1 tablet 60 tablet 2 05/19/2017 Active 1000 MG tablet (1,000 mg total) by mouth 2 (two) times daily. vitamin Take 1 tablet by 90 tablet 3 05/20/2017 Active w/bncycmy-bfhs-zihhbs mouth daily. ( PLUS) 27 mg iron- [...] Not on file Results Not on fileafter 05/16/2019 [id number] Advance Directives For more information, please contact: [phone] Code Status Date Activated Date Inactivated Comments Full Code 05/14/2017 10:10 PM 05/19/2017 2:55 PM This code status was determined by: Patient
--- OUTSIDE RECORDS SUMMARY | 2020-05-16 15:10 | XMS REPORT | Continuity of Care Document ---
:1990 Author Organization [facility] t Address [address] [place] [place] [address] Care Team Providers Name Role Phone Asked, Pcp Primary Care Physician Unavailable Singer GONZALES Attending Clinician Yaquelin Regan MD. Attending Clinician Aron TAYLOR, L Attending Clinician Unavailable Spike MENDOZA, Danie Attending Clinician Vini Turner MD Attending Clinician Gaye MENDOZA Attending Clinician Akinsipe WHCNP, C Attending Clinician Darren CRUZ Attending Clinician [...] Expiration Date Sour ce Number CIGNACIGNA OPEN [id number] 2019 [facility] ACCESS/NETWORKxx 00:00:00 Methodis t [id number]/ 0-PresentHMO MEDICAIDMEDICAID [id number] 2019 [facility] [id number] 00:00:00 Methodis t 0-PresentMedicai d Problems Condition Condition Condition Status Onset Resolution Last Treating Co mments Source Name Details Category Date Date Treatment Clinician Date 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 00:00: st with with 00 generaliza generaliza tion and tion and with with intractabl intractabl e epilepsy e epilepsy Seizure Seizure Disease Active [facility] 11-11 Methodi 00:00: st 00 Hypokalemi Hypokalemi [...] [facility] Less [...] Date Quantity Comments Source Sex Assigned At [facility] ethodist Exposure to Not sure [facility] Metho dist SARS-CoV-2 (event) Tobacco use and 2020-05-02 2020-05-02 Never used [facility] ethodist exposure 00:00:00 00:00:00 Alcohol intake 2020-05-02 2020-05-02 Ex-drinker [facility] thodist 00:00:00 00:00:00 (finding) Smoking Status Start Date Stop Date Source Never smoker [facility] Methodis t Medications Ordered Filled Start Stop Current Ordering Indication Dosage Frequency Signature Comments Components Source Medication Medication Date Date Medication? Clinician (SIG) Name Name cloBAZam 2019-06- Yes 30mg QD Take 3 [place] (ONFI) 10 1-12 05-11 tablets Method i mg tablet 00:00: 23:59 ([address] 00 :00 total) by mouth daily for 180 days. ergocalcife 2019-06- No 07217P Q7D Take 1 [place] rol 0-31 11-30 capsule Methodi (VITAMIN 00:00: 23:59 (50,000 st D2) 50,000 00 :00 Units unit total) by capsule mouth once a week for 30 days. levETIRAcet 2019-06 2020- No 2250mg Q.5D Take 3 [place] [...] times a day for 30 days. levETIRAcet 2019- 2020- No 1250mg Q.5D Take 5 [place] am (KEPPRA) 0-23 10-24 tablets Meth maude 250 MG 00:00: 00:00 (1,[address] tablet 00 :00 total) by mouth 2 (two) times a day for 30 days. divalproex 2019- 2020- No 250mg Q.5D Take 250 [place] (DEPAKOTE) 0-01 10-01 mg by Methodi 250 MG EC 12:25: 00:[address] tablet 56 :00 (two) times a day. cloBAZam 2019-06 2020- No 10mg QD Take 1 [place] (ONFI) 10 0- 10-24 tablet (10 Met hodi mg tablet 00:00: 00:00 mg total) st 00 :00 by mouth nightly for 180 days. levETIRAcet 2019- 2020- No 750mg Q.5D Take 750 [facility] am (KEPPRA) 8-08 10-24 mg by Method i 750 MG 00:00: 00:[address] tablet 00 :00 (two) times a day. levETIRAcet 2019- 2020- No 750mg Q.5D Take 750 [place] am (KEPPRA) 6- 06-02 mg by Method i 750 MG 17:12: 00:[address] tablet 15 :00 (two) times a day. levETIRAcet 2019- 2020- No 2250mg Q.5D Take 3 [place] (KEPPRA) - 07-02 tablets Meth maude 750 MG 00:00: 23:59 (2,[address] tablet 00 :00 total) by mouth 2 (two) times a day for 30 days. B 2019- 2020- No 1{tbl} QD Take 1 Nunez complex-vit 11-14- tablet by [facility] carter 00:00: 23:[address] C-folic 00 :00 daily for acid 30 days. (FOLBEE PLUS 5 MG) 5 mg tablet per tablet cloBAZam 2019- 2020- No 10mg QD Take 1 [place] (ONFI) 10 6- 07-02 tablet (10 Met hodi mg tablet 00:00: 23:59 mg total) st 00 :00 by mouth nightly for 30 days. ferrous 2019- No 325mg Q.5D Take 1 [place] sulfate 325 11-14- tablet Metho di (65 FE) MG 00:00: [...] ts Source Name Name Tdap 2020-05-02 Completed [facility] 00:00:00 [facility] Vital Signs Vital Name Observation Time Observation Value Comments Source Systolic blood 2020-05-02 17:45:00 127 mm[Hg] [place] n [facility]ec[facility]al pressure Diastolic blood 2020-05-02 17:45:00 74 mm[Hg] [place] [facility] pressure Heart rate 2020-05-02 17:45:00 82 /min [facility] Respiratory rate 2020-05-02 17:45:00 14 /min Sonja ton Pentecostal Oxygen saturation in 2020-05-02 17:45:00 100 /min Enrique Piedra Arterial blood by Pulse oximetry Body height 2020-05-02 14:28:00 160 cm Enrique Piedra Body weight 2020-05-02 14:28:00 78.019 kg Enrique Piedra BMI 2020-05-02 14:28:00 30.47 kg/m2 [facility] Body temperature 2020-05-02 14:17:21 36.94 Melody Sonja ton [facility]ecostal Procedures Procedure Date / Time Performing Clinician Source Performed COVID-19 QUALITATIVE PCR 2020-05-02 16:10:00 Daniel Turner URINE CULTURE 2020-05-02 15:51:00 Daniel Turner Vini Nunez Cecelia ethodist CT HEAD WO CONTRAST 2020-05-02 15:47:02 Daniel Turner on Pentecostal HC COMPLETE BLD COUNT 2020-05-02 15:30:00 Daniel Turner [facility]ecostal W/AUTO DIFF HCG QUALITATIVE, SERUM 2020-05-02 15:30:00 Daniel Turner Pentecostal SCREEN BASIC METABOLIC PANEL 2020-05-02 15:30:00 Daniel Turner [facility]ecostal ESTIMATED GFR 2020-05-02 15:30:00 Terri Turnerori Nunez Cecelia ethodist SMEAR REVIEW 2020-05-02 15:30:00 Daniel Turner Vini Nunez Cecelia ethodist URINALYSIS SCREEN AND 2020-05-02 15:28:00 Daniel Turner MICROSCOPY, WITH REFLEX TO CULTURE POC GLUCOSE 2020-04-06 17:27:00 Freddy Ocasio Meth odadriano DOUBLE-STRANDED DNA 2020-04-06 16:50:00 Ninfa Johnson (DSDNA) ANTIBODIES, Ninfa CRITHIDIA CENTROMERE ANTIBODY 2020-04-06 16:50:00 Ninfa Johnson Pentecostal Ahmed SS-B ANTIBODY 2020-04-06 16:50:00 Ninfa Johnson Ks thodist Ahmed POTASSIUM LEVEL 2020-04-05 17:40:00 Reza Avelar Meth odadriano HOMOCYSTINE, PLASMA 2020-04-05 17:40:00 Reza Avelar EEG AWAKE/DROWSY LESS 2020-04-05 11:03:26 Reza Avelar THAN 41 MIN HC COMPLETE BLD COUNT 2020-04-05 04:00:00 Caesar Maxwell on Pentecostal W/AUTO DIFF VITAMIN B12 LEVEL 2020-04-05 04:00:00 Reza Avelar Me thodist C-REACTIVE PROTEIN 2020-04-05 04:00:00 Valentino Reza Nunez M ethodist HOMOCYSTINE, PLASMA 2020-04-05 04:00:00 Reza Avelar Pentecostal RHEUMATOID FACTOR 2020-04-05 04:00:00 Reza Avelar Me thodist THYROID STIMULATING 2020-04-05 04:00:00 Reza Avelar Pentecostal HORMONE T4, FREE 2020-04-05 04:00:00 Reza Avelar Meth odist T3 2020-04-05 04:00:00 Reza Avelar Meth odist SYPHILIS TOTAL ANTIBODY 2020-04-05 04:00:00 Reza Avelar Pentecostal HIV AG/AB COMBINATION 2020-04-05 04:00:00 Reza Avelar Pentecostal VITAMIN D 25 HYDROXY 2020-04-05 04:00:00 Reza Avelar Pentecostal LEVEL BASIC METABOLIC PANEL 2020-04-05 04:00:00 Caesar Maxwell on Pentecostal FOLATE LEVEL 2020-04-05 04:00:00 Caesar Maxwell Met hodist MAGNESIUM LEVEL 2020-04-05 04:00:00 Caesar Maxwell Met hodist ESTIMATED GFR 2020-04-05 04:00:00 Caesar Maxwell Met hodist COVID-19 QUALITATIVE PCR 2020-04-04 22:52:[address] HEAD WO CONTRAST 2020-04-04 21:17:59 Max Ron Pentecostal CBC HEMOGRAM 2020-04-04 21:00:00 Max Ron Me thodist SEDIMENTATION RATE 2020-04-04 21:00:00 Max Ron [facility]ec[facility] URINE CULTURE 2020-04-04 20:52:00 Max Ron Me thodist KEPPRA (LEVETIRACETAM) 2020-04-04 20:15:00 Max Ron Pentecostal LEVEL URINALYSIS SCREEN AND 2020-04-04 19:19:00 Max Ron Pentecostal MICROSCOPY, WITH REFLEX TO CULTURE URINE DRUGS OF ABUSE 2020-04-04 19:19:00 Max Ron on Pentecostal SCREEN PROLACTIN LEVEL 2020-04-04 19:07:00 Max Ron Me thodist ECG 12-LEAD 2020-04-04 19:02:38 Max Ron Me thodist CRITICAL CARE 2020-04-04 18:48:10 Lila Byers Meth odist COMPREHENSIVE METABOLIC 2020-04-04 18:33:00 Max Ron [place] [facility] PANEL LACTIC ACID LEVEL, SEPSIS 2020-04-04 18:33:00 AsafMax Nunez Pentecostal - NOW AND REPEAT 2X EVERY 3 HOURS MAGNESIUM LEVEL 2020-04-04 18:33:00 Max Ron Me thodist PHOSPHORUS LEVEL 2020-04-04 18:33:00 Max Ron M ethodist ESTIMATED GFR 2020-04-04 18:33:00 Max Ron Me thodist PET BRAIN METABOLIC EVAL 2020-03-30 13:51:58 Richard Huizarradha aguila Pentecostal POC GLUCOSE 2020-03-30 12:29:00 Richard Huizar Nadege odist MRI BRAIN W WO CONTRAST 2020-03-27 13:50:00 Pinky Huizarnina lemus Pentecostal MONITORED VIDEO-EEG 60 2020-03-15 12:14:01 Richard Huizar Julee ewing Pentecostal HRS 1 MIN-74 HRS MONITORED W VIDEO DAILY 2020-03-15 00:12:21 Pinky Huizarnina lemus Pentecostal MONITORED W VIDEO DAILY 2020-03-14 00:24:17 Pinky Huizarnina lemus Pentecostal EEG SETUP 2020-03-13 00:17:20 Richard Huizar Nadege odist HC COMPLETE BLD COUNT 2020-03-12 14:18:00 Ulises Choudhary W/AUTO DIFF COMPREHENSIVE METABOLIC 2020-03-12 14:18:00 Ulises Choudharyist PANEL ESTIMATED GFR 2020-03-12 14:18:00 Richard Huizar Meth odist MAGNESIUM LEVEL 2020-03-12 14:18:[address] odist CT HEAD WO CONTRAST 2020-03-12 13:25:51 Ulises Choudhary COVID-19 QUALITATIVE PCR 2020-03-12 11:53:00 Funmi Ulises Dotson Chandler aguila Pentecostal UNMONITORED VIDEO-EEG 36 2019-11-15 09:41:23 Bina Bonds HRS 1 MIN-50 HRS CBC WITH PLATELET AND 2019-11-15 04:30:00 Adrian Diana Pentecostal DIFFERENTIAL Ebrahim MANUAL DIFFERENTIAL 2019-11-15 04:30:00 Adrian Diana Ebrahim BASIC METABOLIC PANEL 2019-11-15 04:00:00 Adrian Diana Pentecostal Ebrahim ESTIMATED GFR 2019-11-15 04:00:00 Adrian Diana Meth odist Ebrahim UNMONITORED VIDEO DAILY 2019-11-15 01:22:22 Bina Bonds EEG SETUP 2019-11-14 00:26:44 Bina Bonds EEG (ROUTINE) 2019-11-13 07:46:23 Bina Bonds CBC WITH PLATELET AND 2019-11-13 04:00:00 Caesar Maxwell on Pentecostal DIFFERENTIAL BASIC METABOLIC PANEL 2019-11-13 04:00:00 Caesar [...] Bonds VITAMIN B12 LEVEL 2019-11-12 19:40:00 Bina Bondsto n Pentecostal C-REACTIVE PROTEIN 2019-11-12 19:40:00 Bina Bonds on Pentecostal HOMOCYSTINE, PLASMA 2019-11-12 19:40:00 Bina Bonds Pentecostal CORTISOL LEVEL, RANDOM 2019-11-12 19:40:00 Bina Bondsston Pentecostal SEDIMENTATION RATE 2019-11-12 19:40:00 Bina Bonds on Pentecostal RHEUMATOID FACTOR 2019-11-12 19:40:00 Bina Bonds n Pentecostal THYROID STIMULATING 2019-11-12 19:40:00 Bina Bonds Pentecostal HORMONE T4, FREE 2019-11-12 19:40:00 Bina Bonds Pentecostal SYPHILIS TOTAL ANTIBODY 2019-11-12 19:40:00 Bina Bonds Pentecostal HIV AG/AB COMBINATION 2019-11-12 19:40:00 Bina Bondston Pentecostal VITAMIN D 25 HYDROXY 2019-11-12 19:40:00 Bina Bonds stoalberta Pentecostal LEVEL CREATINE KINASE, TOTAL 2019-11-12 19:40:00 Shari Bailey on Pentecostal (CPK) Adolfo PROLACTIN LEVEL 2019-11-12 19:40:00 Shari Bailey Meth odist Adolfo MARCELINO TITER 2019-11-12 19:40:00 Shari Bailey Meth odist Adolfo CT CERVICAL SPINE WO 2019-11-12 18:12:54 Shari Bailey Pentecostal CONTRAST Adolfo CT MAXILLOFACIAL WO 2019-11-12 18:09:40 Shari Bailey [facility]ec[facility] CONTRAST Adolfo CT HEAD WO CONTRAST 2019-11-12 18:09:19 Shari Bailey Pentecostal Adolfo XR CHEST 1 VW PORTABLE 2019-11-12 17:35:36 Shari Bailey on Pentecostal Adolfo HC COMPLETE BLD COUNT 2019-11-12 17:04:00 Shari Bailey [facility]ecostal W/AUTO DIFF Adolfo COMPREHENSIVE METABOLIC 2019-11-12 17:04:00 Shari Bailey [facility]ecostal PANEL Adolfo ALCOHOL LEVEL, BLOOD 2019-11-12 17:04:00 Leo Shari Cruzist Adolfo KEPPRA (LEVETIRACETAM) 2019-11-12 17:04:00 Shari Bailey on Pentecostal LEVEL Adolfo ESTIMATED GFR 2019-11-12 17:04:00 Shari Bailey Enrique Meth odist Adolfo URINE CULTURE 2019-11-12 14:44:00 Keanu Flores Meth odist URINALYSIS SCREEN AND 2019-11-12 14:44:00 Keanu Flores [facility]ecostal MICROSCOPY, WITH REFLEX TO CULTURE HCG QUALITATIVE, URINE 2019-11-12 14:44:00 Keanu Flores on Pentecostal SCREEN URINE DRUGS OF ABUSE 2019-11-12 14:44:00 Keanu Flores [facility]ecostal SCREEN Plan of Care Planned Activity Planned Date Details Comments Source Future Scheduled 2020-01-14 INFLUENZA VACCINE Luz pinzon [facility]ecostal Test 00:00:00 [code = INFLUENZA VACCINE] Future Scheduled 2010 Screening for Nunez Me thodist Test 00:00:00 malignant neoplasm of cervix (procedure) [code = 785340408] Encounters Start End Encounter Admission Attending Care Care Encounter Source Date/Time Date/Time Type Type Clinicians Facility Department ID 2020-05-16 2020-05-16 Emergency SENDY Tomas [id number] 11:31:00 13:00:00 Alexandre Leach [id number] [place] [id number] [place] [id number] 2020-05-15 2020-05-15 Outpatient MARILEE REGAN [facility] [id number] [facility] 00:00:00 00:00:[address] 2020-05-15 2020-05-15 Transition JuanyadiraJen [id number] 00:00:00 00:00:00 of Care Lesly Coleman [id number] [place] 4.2.7.2.686 [id number] 2020-05-03 2020-05-12 [facility] Joann Lala [id number] 16:38:00 13:43:00 Encounter Papo Aden [id number] [facility] [id number] [id number] 2020-05-02 2020-05-02 Emergency ANTHONY, [facility] [id number] [facility] 00:00:00 00:00:00 DANIEL [address] 2020-04-26 2020-04-26 Outpatient RICHARD HUIZAR [facility] [id number] [facility] 00:00:00 00:00:[address] 2020-04-10 2020-04-10 [facility] [id number] 14:14:37 15:26:08 Visit Savanna Muñoz [employer]PER[employer] [id number] [facility] 4.2.7.2.686 MATERNAL [id number] & CHILD [address] [place] [address] 2020-04-04 2020-04-07 Inpatient NINFA, [facility] [id number] [facility] 00:00:00 00:00:00 YAHYA [address] 2020-03-30 2020-03-30 Outpatient RICHARD HUIZAR [facility] [id number] [facility] 00:00:00 00:00:[address] 2020-03-27 2020-03-27 Outpatient GAYE RICHARD [facility] [id number] [facility] 00:00:00 00:00:[address] 2020-03-12 2020-03-15 Inpatient GAYE RICHARD [facility] 016 [id number] [facility] 00:00:00 00:00:[address] 2020-02-16 2020-02-16 Outpatient RICHARD HUIZAR [facility] [id number] [facility] 00:00:00 00:00:[address] 2019-11-12 2019-11-15 [facility] [place] [id number] [facility] 00:00:00 00:00:00 ADRIAN [address] Results Test Description Test Time Test Comments Results Result Comments Source Urine culture 2020-05-03 19:14:09 Test Item Value Reference Range Interpretation Comme nts Urine culture isolate Mixed prem <=10-3 Specimen InformationSpecimen (test code = 22364-4) col/cc Source : UrineSpecimen Site: Clean catch [facility] MethodistCOVID-19 qualitative [id number] 22:57:50 Test Item Value Reference Range Interpretation Comments Interpretation (test Negative results do code = 2472051) not preclude 2019-nCoV infection and should not be used as the sole basis for treatment or other patient management decisions. Negative results must be combined with clinical observations, patient history, and epidemiological information. COVID-19 qualitative Not-Detected Not-Detected PCR result (test code = 14963-1) COVID-19 qualitative See link below for C ase Number: PCR (test code = PDF Lab Report [id number]) [facility] MethodistUrinalysis screen and microscopy, with reflex to culture 2020-05-02 17:03:04 Test Item Value Reference Range Interpretation Comments Specimen site (test code = Clean catch 4759610) Color, UA (test code = 5778-6) Yellow Appearance, UA (test code = Clear 5767-9) Specific gravity, UA (test code = 1.035 1.001-1.035 5811-5) pH, UA (test code = 5803-2) 5.0 5.0-8.5 Protein, UA (test code = 94744-3) Negative Negative Glucose, UA (test code = 06026-0) Negative Negative Ketones, UA (test code = 2514-8) Trace Negative A Bilirubin, UA (test code = Negative Negative 5770-3) Blood, UA (test code = 5794-3) Negative Negative Nitrite, UA (test code = 5802-4) Negative Negative Urobilinogen, UA (test code = <2.0 <2.0 47304-5) Leukocyte esterase, UA (test code Small Negative A = 5799-2) Epithelial cells, UA (test code = 6 /HPF 5787-7) WBC, UA (test code = 5821-4) 10 0- 4 /HPF H RBC, UA (test code = 24122-1) 2 0- 5 /HPF Bacteria, UA (test code = Few None seen 67116-3) Yeast, UA (test code = 64201-7) None seen Yeast with pseudohyphae, UA (test None seen code = 83968-5) Lab Interpretation (test code = Abnormal 22646-6) Nunez MethodisthCG qualitative, serum [id number] 16:18:10 Test Item Value Reference Range Interpretation Comments hCG qualitative, Negative Sensitivity of HCG test: serum (test code = 25 mIU/mL 8-8) Nunez MethodistBasic metabolic [id number] 16:11:00 Test Item Value Reference Range Interpretation Comments Sodium (test code = 2951-2) 140 135- 148 mEq/L Potassium (test code = 2823-3) 3.7 3.5- 5.0 mEq/L Chloride (test code = 2075-0) 103 98- 112 mEq/L CO2 (test code = 8-9) 25 24- 31 mEq/L Anion gap (test code = 60556-5) 12@ANIO 7- 15 mEq/L BUN (test code = 3094-0) 13 mg/dL 6-20 Creatinine (test code = 2160-0) 0.70 mg/dL 0.5-0.9 Glucose (test code = 2345-7) 93 mg/dL 65-99 Calcium (test code = 03893-4) 9.6 mg/dL 8.3-10.2 Nunez MethodistEstimated [id number] 16:11:00 Test Item Value Reference Range Interpretation Comments Estimated GFR (test >=90 mL/min/1.73 m2 [facility] code = 5488) InterpretationG 1 >=90 Normal or highG2 60-89 Mildly gcxnrozkaU8z 45-59 Mildly to mode rately lyuyijcvrI0p 30-44 Moderately to severely decreasedG4 15-29 Severely decre asedG5 <15 Kidn ey failureThe eGFR was calculated alyssa fortune the Chronic Kidney Disease Epidemiology Co llaboration (CKD-EPI) equat ion. Interpretation is based on recommendations of the National Kidney Foundation-Kidn ey Disease Outcomes Qualit y Initiative (NKF-KDOQI) pub lished in 2014. Nunez MethodistCBC with platelet and [id number] 16:06:29 Test Item Value Reference Range Interpretation Comments WBC (test code = 54322-7) 10.69 4.50- 11.00 k/uL RBC (test code = 65017-9) 4.71 m/uL 4.2-5.5 HGB (test code = 718-7) 13.5 g/dL 12-16 HCT (test code = 4544-3) 42.4 % 37-47 MCV (test code = 787-2) 90.0 fL 82-100 MCH (test code = 785-6) 28.7 pg 27-34 MCHC (test code = 786-4) 31.8 g/dL 31-37 RDW - SD (test code = 41.3 fL 37-55 50381-6) MPV (test code = 77617-0) 10.0 fL 8.8-13.2 Platelet count (test code 260 150- 400 k/uL = 21348-5) Nucleated RBC (test code 0.00 /100 WBC = 19794-4) Neutrophils (test code = 65.7 % 39-69 94183-5) Lymphocytes (test code = 24.7 % 25-45 L 96061-3) Monocytes (test code = 7.3 % 0-10 41754-8) Eosinophils (test code = 1.3 % 0-5 04618-2) Basophils (test code = 0.7 % 0-1 82121-5) Immature granulocytes 0.3 % 0-1 "Immat ure (test code = 40224-1) granul ocytes" (promyelocytes, myelocytes, metamyelocytes) Lab Interpretation (test Abnormal code = 83148-9) [facility] MethodistSmear [id number] 16:06:29 Test Item Value Reference Range Interpretation Comments Platelet slide review (test code Sana adequate = 42206-3) Enlarged platelets (test code = Moderate A 05421-6) Lab Interpretation (test code = Abnormal 39920-2) [facility] MethodistCT Head Wo [id number] 15:54:03Hm Interface, Radiology Results 05/02/2020 3:57 PM [...] IMPRESSION:1. No CT evidence of acute intracranial abnormality.[id number] Pentecostal Epilepsy/Seizure [id number] 09:01:11EPILEPSY MONITORING UNIT REPORT Patient Name: Heather [...] left frontal central temporal region. ICD-10 Code: N178Dyqmxtw MethodistEpilepsy/Seizure monitoring 2020-04-23 09:00:05EPILEPSY MONITORING UNIT REPORT [...] left frontal central temporal region. ICD-10 Code: A877Nsiembw Pentecostal Epilepsy/Seizure [id number] 08:55:34EPILEPSY MONITORING UNIT REPORT Patient Name: Heather [...] left frontal central temporal region. ICD-10 Code: D445Kxwsoen Pentecostal Epilepsy/Seizure [id number] 08:45:34EPILEPSY MONITORING UNIT REPORT Patient Name: Heather [...] left frontal central temporal region. ICD-10 Code: L991Ewbsdfs MethodistDouble-stranded DNA (dsDNA) antibodies, [id number] 13:15:26 Test Item Value Reference Range Interpretation Comments DNA Ab screen (test code = 1297) Not Detected Not-Detected Enrique MethodistRibonucleic antibody (GUM DIPPER)2020-04-06 18:25:47 Test Item Value Reference Range Interpretation Comments Ribonucleic antibody <0.2 0.0- 0.9 AI (GUM DIPPER) (test code = 30952-8) Ribonucleic antibody Negative AI Anti-ri bonucleic (GUM DIPPER) interp (test protein ( anti-GUM DIPPER) code = 5267) antibodies are typically found in patients with m ixed connective tiss ue disease, but ca n also be seen in christin ents with systemic l upus erythematosus ( SLE) or systematic scle rosis. Enrique MethodistJo-1 [id number] 18:25:46 Test Item Value Reference Range Interpretation Comments Bernarda-1 antibody (test <0.2 0.0- 0.9 AI code = 96357-8) Bernarda-1 antibody interp Negative Anti-Bernarda -1 antibody is (test code = 5263) predomina ntly found in patients with polymyositis, e specially for those with interstitial pu lmonary fibrosis. It ca n also be found in patien ts with dermatomyositis . Nunez MethodistScl-70 [id number] 18:25:46 Test Item Value Reference Range Interpretation Comments Scleroderma SCL-70 Ab <0.2 0.0- 0.9 AI (test code = 08115-0) Scl-70 antibody interp Negative AI Anti- Scl-70 (test code = 5268) (topoisom erase I) antibodies are found in patients with s ystemic sclerosis (SSc or scleroderma), a nd have been reported t o be predictive of d iffuse cutaneous invol vement. Anti-Scl-70 ant ibodies may also be pre sent in patients with s ystemic lupus erythemat osus (SLE). Nunez MethodistSS-A [id number] 18:25:46 Test Item Value Reference Range Interpretation Comments Sjogren's SS-A <0.2 0.0- 0.9 AI antibody (test code = 78082-7) SS-A antibody interp Negative AI SS-A an tibody is (test code = 2235) sensitive for Sjogren's syndrome, but m ay also be positive with s ystemic lupus erythemat osus (SLE), and syst emic sclerosis. Nunez MethodistCentromere [id number] 18:25:45 Test Item Value Reference Range Interpretation Comments Centromere antibody <0.2 0.0- 0.9 AI (test code = 8068-9) Centromere antibody Negative AI Anti-sae tromere interp (test code = antibodi es are found 83946-9) in patients wit h systemic sclero sis (SSc or sclerod sb), especially for those with limited cu taneous or CREST syndro me. Anti-centromere antibodies may also be found in patien ts with other rheumatic or connective tiss ue diseases. Nunez MethodistSmith [id number] 18:25:45 Test Item Value Reference Range Interpretation Comments Matthew antibody (test <0.2 0.0- 0.9 AI code = 95221-4) Matthew antibody Negative AI Anti-Matthew an tibodies interp (test code = occurs i n 30-35% of 5269) systemic lupus erythematosus ( SLE) cases, but is v gilbert specific for SL E. It may also present in mixed connective-tiss ue disease (MCTD). Enrique CruzistSS-B [id number] 18:25:44 Test Item Value Reference Range Interpretation Comments Sjogren's SS-B 0.6 0.0- 0.9 AI antibody (test code = 3001) SS-B antibody interp Negative AI SS-B/La antibody is seen (test code = 2237) in patien ts with Sjogren syndrome, but m ay also be positive with s ystemic lupus erythemat osus (SLE), and syst emic sclerosis. Nunez MethodistKeppra (Levetiracetam) [id number] 17:50:04 Test Item Value Reference Interpretation Comments Range Levetiracetam 23 ug/mL 12-46 INTERPRETIVE I NFORMATION: (test code = Keppra 4478-4) (Levetiracetam) Therapeutic Range: 12-46 u g/mL Toxic: Not wel l EstablishedPhar macokinetics of levetiracetam a re affected by renal function. Adverse effects may include andi nolence, weakness, heada justus and vomiting.This l evetiracetam (Keppra) immuno assay uses the [employer] reagents, which has known cross -reactivity with the drug brivar acetam (Briviact) and may report inaccurate resu lts. Patients transitioning f rom levetiracetam t o brivaracetam or those who ar e using both medications alejandra uld not monitor drug concentrat ions with the [employer] assay. These patients should be monitored using a validat ed chromatographic methodology that distinguis hes between drugs to determ ine drug concentrations. Performed By: [facility] [address] [place], [place] [id number] Director: MD Enrique SidhuWanda [id number] 17:38:16 Test Item Value Reference Range Interpretation Comments POC glucose (test code = 102 mg/dL 65-99 H Ope rator Name: [id number]) Gerber Coulter ice ID: [id number] Lab Interpretation (test Abnormal code = 03262-9) Enrique Rubiocystine, afhgrs6463-66-90 18:55:23 Test Item Value Reference Range Interpretation Comments Homocysteine (test 6.7 umol/L 0-15 The risk for coronary code = 11986-0) vascular dis ease increases progressively w ith homocysteine concentration. A 3.4 times greater r isk is associated with a homocysteine concentration o f greater than 15.8 umol/L as carlin red to a concentration below 14.1 umol/L. S pecimen is slightly hem olyzed. Interpret resu lts accordingly. Nunez MethodistPotassium fruit6225-42-75 18:49:08 Test Item Value Reference Range Interpretation Comments Potassium (test code = 2823-3) 3.7 3.5- 5.0 mEq/L Spearman MethodistVitamin D 25 hydroxy vzegd5179-48-54 15:53:37 Test Item Value Reference Range Interpretation [...] hods. Lab Interpretation Abnormal (test code = 67512-1) Enrique MethodistECG 12 nysg0777-10-10 13:34:29 Test Item Value Reference Range Interpretation Comments Ventricular rate (test 77 code = 253) Atrial rate (test code 77 = 255) OK interval (test code 154 = 266) QRSD [...] of 12-NOV-2019 21:10,-No significant change was found- Spearman MethodistEEG (routine)2020-04-05 11:50:53VIDEO-EEG RECORDING AWAKE & ASLEEP. [...] are captured. Jojo Cruz MD ICD-10 Code: E525Jnmtaht MethodistSyphilis total tmkhvuyh3991-11-55 10:02:20 Test Item Value Reference Range Interpretation [...] 04/05/2020 09:26 __ (date/time). Credit issued. Enrique CruzistRheumatoid jpltzv0620-06-39 09:01:34 Test Item Value Reference Range Interpretation Comments Rheumatoid factor (test <10 0- 13 IU/mL code = 87815-2) LUIS MIGUEL (test code = LUIS MIGUEL) Unable to perform testing, specimen is _HEMOLYZED___. Recollect requested for __K__ (tests). __LILA JOHN (name/location) notified by ___JT_ (tech ID) at __ 04/05/2020 07:01 __ (date/time). Credit issued. Enrique PiedraVitamin B12 mkwgu4880-37-99 06:58:42 Test Item Value Reference Range Interpretation Comments Vitamin B12 (test 739 pg/mL 211-946 Significan t overlap code = 2132-9) exists betwee n normal and deficiency states.However, most patients with deficiencies wi ll have Serum B12 <2 00 pg/mL. Enrique MethodistFolate pgqta3296-04-81 06:58:42 Test Item Value Reference Range Interpretation Comments Folate (test code = 2284-8) 14.0 ng/mL 4.8-24.2 Enrique CruzistMagnesium ymjwy6901-39-81 06:52:05 Test Item Value Reference Range Interpretation Comments Magnesium (test code = 83762-6) 1.8 mg/dL 1.6-2.6 Enrique CruzistT4, gifs2365-05-95 06:52:05 Test Item Value Reference Range Interpretation Comments T4, free (test code = 3024-7) 1.1 ng/dL 0.9-1.7 Nunez PentecostalThyroid stimulating hbzeqjh4708-99-23 06:52:05 Test Item Value Reference Range Interpretation Comments TSH (test code = 3016-3) 1.26 0.27- 4.20 uIU/mL Enrique PiedraXtktzvtqwG10955-69-00 06:52:05 Test Item Value Reference Range Interpretation Comments T3 (test code = 3053-6) 89 ng/dL 80-200 Nunez PentecostalC-reactive iydvmbx0477-69-16 06:52:05 Test Item Value Reference Range Interpretation Comments CRP (test code = 1987-5) <0.30 0-0.5 Nunez PentecostalHIV Ag/Ab hjcgvkcxcel9130-43-56 06:48:46 Test Item Value Reference Range Interpretation Comments HIV Ag/Ab combination (test code Non-reactive Non-reactive = 5299) Nunez Hermiloedimentation gued6900-86-66 22:23:01 Test Item Value Reference Range Interpretation Comments Sedimentation rate (test code = 6 0- 20 mm/hr 67246-5) [facility] drugs of abuse rezdkz2125-50-65 21:28:59 Test Item Value Reference Interpretation Comments Range Amphetamine screen, Negative urine (test code = 3349-8) Barbiturate screen, Negative urine (test code = 3377-9) Benzodiazepine Positive A screen, urine (test code = 3390-2) Cocaine screen, Negative urine (test code = 3397-7) Methadone Negative metabolite (EDDP), urine (test code = 12055-4) Opiates screen, Negative urine (test code = 3879-4) Oxycodone screen, Negative urine (test code = 83642-3) Phencyclidine Negative screen, urine (test code = 3936-2) Tricyclic screen, Negative urine (test code = 26692-9) Cannabinoid screen, Negative Drug scr een minimum [...] ired. Lab Interpretation Abnormal (test code = 03720-0) Spearman Methodm[facility] hospitalComprehensive metabolic wttqz0673-59-98 21:27:39 Test Item Value Reference Range Interpretation Comments Sodium (test code = 138 135- 148 mEq/L 2951-2) Potassium (test code = 3.6 3.5- 5.0 mEq/L 2823-3) Chloride (test code = 105 98- 112 mEq/L 5-0) CO2 (test code = 2027-9) 22 24- 31 mEq/L L Anion gap (test code = 11@ANIO 7- 15 mEq/L 13603-0) BUN (test code = 3094-0) 7 mg/dL 6-20 Creatinine (test code = 0.46 mg/dL 0.5-0.9 L 0-0) Glucose (test code = 96 mg/dL 65-99 5-7) Calcium (test code = 9.2 mg/dL 8.3-10.2 80887-1) Protein (test code = 7.1 g/dL 6.3-8.3 -[place] n 2885-2) 4.6-7.0 g/dL1 week 4.4-7 .6 g/dL7 months-1y ear 5.1-7 .3 g/dL1-2 years 5.6-7 .5 g/dL>3 years 6.0-8 .0 g/iD05-115 6.3-8 .3 g/dL Albumin (test code = 3.8 g/dL 3.5-5 1751-7) A/G ratio (test code = 1.2 0.7-3.8 1759-0) Alkaline phosphatase 64 U/L 35-104 (test code = 6768-6) AST (test code = 1920-8) 20 U/L 10-35 ALT (test code = 1742-6) 14 U/L 5-50 Total bilirubin (test 0.4 mg/dL 0-1.2 code = 1974-) Lab Interpretation (test Abnormal code = 70543-1) Spearman MethodistLactic acid level, SEPSIS - Now and repeat 2x every 3 hours 2020-04-04 21:27:38 Test Item Value Reference Range Interpretation Comments Lactic acid (test code = 13620-0) 1.1 mmol/L 0.5-2.2 Nunez MethodistPhosphorus wggvm9330-76-08 21:27:37 Test Item Value Reference Range Interpretation Comments Phosphorus (test code = 2777-1) 3.7 mg/dL 2.4-4.5 Spearman MethodistCBC zdshkvuv6832-48-86 21:21:43 Test Item Value Reference Range Interpretation Comments WBC (test code = 65095-3) 7.66 4.50- 11.00 k/uL RBC (test code = 90545-5) 4.23 m/uL 4.2-5.5 HGB (test code = 718-7) 12.2 g/dL 12-16 HCT (test code = 4544-3) 36.8 % 37-47 L MCV (test code = 787-2) 87.0 fL 82-100 MCH (test code = 785-6) 28.8 pg 27-34 MCHC (test code = 786-4) 33.2 g/dL 31-37 RDW - SD (test code = 82524-0) 40.3 fL 37-55 MPV (test code = 08592-4) 10.1 fL 8.8-13.2 Platelet count (test code = 247 150- 400 k/uL 11226-9) Nucleated RBC (test code = 0.00 /100 WBC 89083-7) Lab Interpretation (test code = Abnormal 55755-9) Spearman MethodistProlactin rrsbe7535-81-68 21:11:11 Test Item Value Reference Range Interpretation Comments Prolactin (test code = 2842-3) 13 ng/mL 5-23 Spearman MethodistCRITICAL ZMZB8062-66-43 18:48:10BMax gleason MD 04/20/2020 3:37 PMCritical CarePerformed by: Lila ByersAuthorized by: Max Ron MD Critical care provider statement: Critical care time (minutes): 20 Critical care was necessary to treat or prevent imminent or life- threatening deterioration of the following conditions: COLORECTAL SURGEON failure or compromise Critical care was time [...] from another provider.: Hawa CruzistPET Brain Metabolic Rhqy2400-81-96 14:42:07Hm Interface, Radiology [facility] - 03/30/2020 2:45 PM CDTPROCEDURE: PET BRAIN [...] interictal study.2.Diffuse cerebellar hypometabolism suggests a pharmacologic effect.[facility]-[id number] MethodistContinuous EEG krlhytdxbx4912-17-65 17:34:53CONTINUOUS VIDEO-EEG MONITORING REPORT Patient Name: Heather [...] regions independently. No seizures occurred. ICD-10 Code: R56.9[facility] MethodistANA qgawj8679-49-94 13:12:21 Test Item Value Reference Range Interpretation Comments MARCELINO titer (test code = 09405-4) 1:160 Not-Detected A MARCELINO pattern (test code = 19332-6) Homogeneous Not-Detected A Lab Interpretation (test code = Abnormal 66128-3) Spearman LqxhjzdvqDOU0006-46-81 13:08:33 Test Item Value Reference Range Interpretation Comments MARCELINO screen (test code Positive Negative A Test p erformed using = 550) NOVSgnam DAPI MARCELINO kit (Indirect Immunofluoresce nce Assay) for Anti -Nuclear Antibody on [place] QUANTA-Lyser 16 0 Analyzer. Lab Interpretation Abnormal (test code = 47201-2) Spearman MethodistManual argmabdixpej2677-10-04 08:57:11 Test Item Value Reference Range Interpretation Comments Manual differential (test code = PERFORMED 57314-7) Neutrophils (test code = 51.0 % 39-69 90326-3) Lymphocytes (test code = 34.0 % 25-45 20004-7) Monocytes (test code = 56053-7) 13.0 % 0-10 H Eosinophils (test code = 2.0 % 0-5 37421-3) Basophils (test code = 94051-3) 0.0 % 0-1 Metamyelocytes (test code = 0 % 740-1) Promyelocytes (test code = 0 % 783-1) Platelet slide review (test code Sana adequate = 35285-2) Anisocytosis (test code = 702-1) Moderate Ovalocytes (test code = 774-0) Moderate Enlarged platelets (test code = Moderate A 91372-8) Lab Interpretation (test code = Abnormal 73158-5) Spearman MethodistContinuous EEG oekrpxmerr6231-65-14 07:42:19CONTINUOUS VIDEO- EEG MONITORING REPORT Patient Name: [...] independently. No seizures occurred. ICD-10 Code: R56.9[place] Pentecostal Continuous EEG apmjqwspvi6851-09-28 07:19:24 CONTINUOUS VIDEO-EEG MONITORING REPORT Patient Name: [...] regions independently. No seizures occurred. ICD-10 Code: R56.9[facility] MethodistEEG (routine) - Baseline [id number] 06:43:32EEG RECORDING AWAKE & ASLEEP - Baseline [...] and agree with the above findings. Richard Toya Huizar MethodistFerritin mokyh2686-08-36 07:54:01 Test Item Value Reference Range Interpretation Comments Ferritin level (test code = 2276-4) <13 13-150 A Lab Interpretation (test code = Abnormal 01493-9) Nunez MethodistTotal iron binding dodczrvx1816-82-25 07:50:12 Test Item Value Reference Range Interpretation Comments Iron level (test code = 2498-4) 20 ug/dL 37-145 L Iron binding capacity (test code = 335 ug/dL 403-942 7330-7) % Saturation (test code = 2502-3) 6.0 % 15-38 L Lab Interpretation (test code = Abnormal 74413-2) Nunez MethodistCortisol level, tekhgu1756-63-99 20:48:37 Test Item Value Reference Range Interpretation Comments Cortisol, random 2 ug/dL Reference R anges are not (test code = 2143-6) establi shed for non-timed Cortisol levels .Reference Range for Timed Cortisol: 6 - 10 AM 6 - 18 ug/dl 4 - 8 PM 3 - 11 ug/ dl Enrique MethodistCreatine kinase, total (CPK)2019-11-12 20:42:35 Test Item Value Reference Range Interpretation Comments Creatine kinase (test code = 2157-6) 56 U/L 26-192 Enrique MethodistCT Cervical Spine Wo Goxpvphp7947-29-02 18:17:20Hm Interface, Radiology Results 11/12/2019 6:20 PM [...] fracture or subluxation identified in the cervical spine.[facility]-[id number] MethodistCT Maxillofacial Wo Huxephsk1959-16-64 18:15:46Hm Interface, Radiology Results 11/12/2019 6:18 PM [...] soft tissues are unremarkable.The paranasal sinuses are clear.[facility]-8BT63726OEQdnemndNacogdoches Memorial Hospital Alcohol level, cjtzx3999-30-57 18:06:03 Test Item Value Reference Range Interpretation Comments Alcohol percent None Detected % Normal (test code = None Detec tedLegal 5643-2) Intoxication in [place] 80 mg/dL (0.08% ) - Whole BloodToxi c Concentration 200 mg/dL (0.2%)Potential ly Fatal 350 - 500 mg/dL (0.35 - 0 .5%) [facility] 1 Vw Qujuemsv5397-27-95 17:37:03Hm Interface, Radiology Results 11/12/2019 5:40 PM CDTEXAMINATION: XR CHEST 1 VW PORTABLECLINICAL HISTORY: SOBXR CHEST 1 VW PORTABLE images are submittedCOMPARISON: NONEFINDINGS:The cardiac silhouette is normal in size. The pulmonary vasculature is within normal limits. The lung zones have no focal area of consolidation. There is no pleural effusion or pneumothorax.IMPRESSION:1. Thereis no acute cardiopulmonary disease.STJO-[id number] MethodisthCG qualitative, urine chyusx8641-94-21 15:26:18 Test Item Value Reference Range Interpretation Comments hCG qualitative, Negative Sensitivity of HCG test: urine (test code = 25 mIU/mL 6-3) Spearman MethodadrianoDRUGS OF ABUSE SCREEN [id number] 17:11:00 Test Item Value Reference Range Interpretation [...] = [place]) concentrati on: 300 ng/mL URINALYSIS [id number] 17:08:00 Test Item Value Reference Range Interpretation [...] (test code = MOD NONE BACU) URINALYSIS [id number] 17:00:00 Test Item Value Reference Range Interpretation [...] (test code = NONE BACU) HCG SERUM [id number] 16:52:00 Test Item Value Reference Range Interpretation Comments HCG SERUM QUAL (test code = HCGQL) NEGATIVE NEGATIVE - CT HEAD/BRAIN W/O [id number] 16:51:00 FAX: Theresa Fields MD [place]: St: REG Name: HEATHER HOPE [facility] : 1990 Age/S: 28/F [address] [facility] [employer] Unit: [id number] Loc: [place]: [place] [address] Acct: [id number] Dis Date: Status: REG ER PHONE #: [phone] Exam Date: 02/23/2019 1642 FAX #: [phone] Reason: SEIZURE EXAMS: CPT CODE: [id number] CT HEAD/BRAIN W/O CONT 33311 Dictation location: U19. CT HEAD WITHOUT CONTRAST. [...] MD Technologist: HEATHER DICKSON Trnscrd Dt/Tm: 02/23/2019 (7852) [email or web address] Orig Print D/T: S: 02/23/2019 (4934 PAGE 1 Signed ReportBASI METABOLIC [id number] 16:31:00 Test Item Value Reference Range Interpretation [...] CA) 8.8 mg/dl 8.0-10.5 N BASIC METABOLIC [id number] 16:26:00 Test Item Value Reference Range Interpretation [...] code = CA) mg/dl 8.0-10.5 CBC W/AUTO [id number] 16:15:00 Test Item Value Reference Range Interpretation [...] 3-60 N code = VLDL) RAPID PLASMA [id number] 10:31:00 Test Item Value Reference Range Interpretation Comments RAPID PLASMA REAGIN (test code = Nonreactive Nonreactive RPR) GLYCOSYLATED HEMOGLOBIN (HA1C)2018-12-07 10:05:00 Test Item Value Reference Range Interpretation Comments GLYCOSYLATED HEMOGLOBIN (HA1C) 5.8 % TOT HB 4.5-6.2 N (test code = GLYHGB) [id number] 15:31:00 Test Item Value Reference Range Interpretation Comments ACETAMINOPHEN (test < 1 MCG/ML 10-30 L Acetamin ophen is code = ACET) possibly toxic at levels of: 1. m ore than 150 MCG/ML 4 hours post kaylin stion. 2. more than 5 0 MCG/ML 12 hours post ingestion. [id number] 15:31:00 Test Item Value Reference Range Interpretation Comments SALICYLATE (test code = < 3 MG/DL 0-20 N Refe rence Range: BOSSMAN) Analgesic...... ...... ...... < 10 mg /dl Therapeutic.... ...... ...... 15-20 mg /dl Mild Toxicity....... ...... . > 30 mg/dl Severe Toxicity....... ..... > 60 mg/dl UA RFLX [id number] 14:18:00 Test Item Value Reference Range Interpretation [...] Clean Catch (test code = UASPEC) UA [id number] 14:18:00 Test Item Value Reference Range Interpretation Comments UA WBC (test code = WBCU) < 10 #/hpf <10 UA RBC (test code = RBCU) 0-2 #/hpf NONE SEEN A UA BACTERIA (test code = BACU) RARE #/hpf NONE SEEN UA SQUAMOUS CELLS (test code = 0 - 20 #/lpf <100 SQU) UA MUCUS (test code = MUCU) 1+ #/lpf NONE SEEN BASIC METABOLIC [id number] 14:16:00 Test Item Value Reference Range Interpretation [...] 9.4 MG/DL 8.7-10.5 N CA) HEPATIC FUNCTION [id number] 14:16:00 Test Item Value Reference Range Interpretation [...] 50-136 N TOTAL (test code = ALKP) [id number] 14:16:00 Test Item Value Reference Range Interpretation Comments CK (test code = CKT) 87 Units/L 26-192 N [id number] 14:16:00 Test Item Value Reference Range Interpretation Comments ALCOHOL (test code = < 3 MG/DL 0-10 N 0 - 10: Should be ALC) interpreted as NEGATIVE. 11 - 50: None to mild euphoria. 51 - 100: Mild influence on vision and dark adapta tion. > 80: Legal intoxication; D epression of COLORECTAL SURGEON; Increasing degr ee of poisoning. > 400: Fatalities repo rted. Results are for medical purposes only a nd not forlegal or emp loyment evaluative purp oses. BASIC METABOLIC [id number] 14:09:00 Test Item Value Reference Range Interpretation [...] 9.4 MG/DL 8.7-10.5 N CA) HEPATIC FUNCTION [id number] 14:09:00 Test Item Value Reference Range Interpretation [...] TOTAL (test Units/L 50-136 code = ALKP) [id number] 14:09:00 Test Item Value Reference Range Interpretation Comments CK (test code = CKT) Units/L 26-192 [id number] 14:09:00 Test Item Value Reference Range Interpretation Comments ALCOHOL (test code = ALC) MG/DL 0-10 LACTIC ACID [id number] 13:50:00 Test Item Value Reference Range Interpretation Comments LACTIC ACID POC 0.97 MMOL/L 0.90-1.70 N Performed by certified (test code = LACTP) reach truck operator at [facility] [id number] 13:48:00 Test Item Value Reference Range Interpretation Comments GLUBED (test code = 88 MG/DL 65-99 N Performe d by certified GLUBED) reach truck operator at [facility] DRUG OF ABUSE SCREEN [id number] 13:43:00 Test Item Value Reference Interpretation Comments [...] by layton rader methods (i.e., GC/MS) at [facility]. Results of scre en may not be usedin crimi nal justice, job performance or professionalcre dential review, or infa nt custody issues. Negativ e [place] Level ng/ml ------- ----- Cocaine 300 Methamp hetamine (Ecstacy) 500 Cannabinoids (THC) 50 Amphetamine 1000 Barbiturate s 200 Benzodia zepines 200 Opiat es 300 Ph encyclidine (PCP) 25 UR HCG [id number] 13:39:00 Test Item Value Reference Range Interpretation [...] using aquantitative h CG assay. UA RFLX [id number] 13:38:00 Test Item Value Reference Range Interpretation [...] Clean Catch (test code = UASPEC) UA [id number] 13:38:00 Test Item Value Reference Range Interpretation Comments UA WBC (test code = WBCU) #/hpf <10 UA RBC (test code = RBCU) #/hpf NONE SEEN UA SQUAMOUS CELLS (test code = SQU) #/lpf <100 UA RFLX [id number] 13:38:00 Test Item Value Reference Range Interpretation [...] Clean Catch (test code = UASPEC) UA [id number] 13:38:00 Test Item Value Reference Range Interpretation Comments UA WBC (test code = WBCU) #/hpf <10 UA RBC (test code = RBCU) #/hpf NONE SEEN UA SQUAMOUS CELLS (test code = SQU) #/lpf <100 CBC W/AUTO [id number] 13:26:00 Test Item Value Reference Range Interpretation [...] = BA#) 0.05 x10 3/uL 0.0-0.2 N [id number] 19:07:00 Test Item Value Reference Interpretation Comments Range LEVETIRACETAM 28.7 ug/mL 10.0-40.0 This test was developed and (test code = its performance LEVTAM) characteristics determined by [employer]. It has not been cleared orappro froylan by the Food and Drug Administration. Performed At: [address] [place], [place] [id number] ra Larissa MENDOZA Ph:[phone] BASIC METABOLIC [id number] 04:58:00 Test Item Value Reference Range Interpretation [...] code = 8.9 MG/DL 8.7-10.5 N CA) [id number] 04:58:00 Test Item Value Reference Range Interpretation Comments MAGNESIUM (test code = MAG) 1.9 MG/DL 1.8-2.4 N CBC W/AUTO [id number] 04:08:00 Test Item Value Reference Range Interpretation [...] 0.0-0.2 N NRBC#) - MRI BRAIN W/O [id number] 13:51:00 Patient Name: HEATHER HOPE Unit No: [id number] EXAMS: CPT CODE: [id number] MRI BRAIN W/O CONTRAST 81463 Reason: sz INDICATION: Seizure COMPARISON: CT brain, [...] MD Technologist: Andre Self MRI Trscrpt Dt/ (3889)[email or web address] Orig Print D/T: S: 09/17/2018 (6082) [facility] CntNAME: HEATHER HOPE NOVEMBER [address] PHYS: Felecia Dominguez [place] [facility] [place] [address] : 1990 AGE: 27 SEX: F LOC: D.D313 1 PHONE #: [phone] EXAM DATE: 09/17/2018 STATUS: ADM IN FAX #: RAD NO: DC Dt: PAGE 1 Signed [id number] 07:25:00 Test Item Value Reference Range Interpretation Comments PROLACTIN (test code = 24.6 ng/mL 4.8-23.3 H Perfo rmed At: HD PROLAC) [facility] [address] [id number] Kyle L MD Ph:[phone] UA RFLX MICROSCOPIC [id number] 19:02:00 Test Item Value Reference Range Interpretation [...] UACULT) URINE SOURCE: Clean CatchUA RFLX MICROSCOPIC [id number] 18:56:00 Test Item Value Reference Range Interpretation [...] (test code = UACULT) URINE SOURCE: Clean [id number] 15:56:00 Test Item Value Reference Range Interpretation Comments CK (test code = CKT) 34 Units/L 26-192 N BASIC METABOLIC [id number] 12:57:00 Test Item Value Reference Range Interpretation [...] code = 8.6 MG/DL 8.7-10.5 L CA) [id number] 12:57:00 Test Item Value Reference Range Interpretation Comments CK (test code = CKT) 32 Units/L 26-192 N CBC W/AUTO [id number] 12:33:00 Test Item Value Reference Range Interpretation [...] 3/uL 0.0-0.2 N NRBC#) TOTAL IRON BINDING [id number] 05:50:00 Test Item Value Reference Range Interpretation Comments SERUM IRON (test code = IRON) 17 MCG/DL 50-170 L TOTAL IRON BINDING CAPACITY (test 363 MCG/DL 280-400 N code = TIBC) IRON SATURATION (test code = 5 % 15-50 L FESAT) [id number] 05:50:00 Test Item Value Reference Range Interpretation Comments FERRITIN (test code = LULI) 11 NG/ML 3-105 N HEPATIC FUNCTION [id number] 05:32:00 Test Item Value Reference Range Interpretation [...] Result s of this AST) assay method ida y be falsely depress ed orelevated if patient is taki ng sulfasalazine. SGPT/ALT (test code = 21 Units/L 30-65 L Result s of this ALT) assay method ma y be falsely depress ed orelevated if patient is taki ng sulfasalazine. ALKALINE PHOSPHATASE 100 Units/L 50-136 N TOTAL (test code = ALKP) - CT HEAD/BRAIN W/O [id number] 20:19:00 Patient Name: HEATHER HOPE Unit No: [id number] EXAMS: CPT CODE: [id number] CT HEAD/BRAIN W/O CONT 82944 Reason: seizure TECHNIQUE: Contiguous 5 mm images [...] Heath Technologist: Edel Cade CT Trscrpt Dt/ (2018)MarlyW Orig Print D/T: S: 09/14/2018 (2021) CTDI: DLP: [facility] NAME: HEATHER HOPE [place] [address] [facility] PHYS: NGA. - Keanu Váz[place] [address] : 1990 AGE: 27 SEX: F LOC: MATT PHONE#: [phone] EXAM DATE: 09/14/2018 STATUS: REG ER FAX #: RAD NO: DC Dt: PAGE 1 Signed Report- XR CHEST 1 [id number] 20:18:00 Patient Name: HEATHER HOPE Unit No: [id number] EXAMS: CPT CODE: [id number] XR CHEST 1 V 07166 Reason: screen for pneumonia FINDINGS: Single view ofthe chest shows normal heart size and pulmonary vasculature. The lungs are clear bilaterally. There is no focal infiltrate, pleural effusion or pneumothorax. IMPRESSION: No a cute cardiopulmonary findings at 2018 Reported and signed by: Lashell Jimenez MD CC: Keanu Vázquez MD; Cristiane Heath Technologist: Edel Cade CT Trscrpt Dt/ (2017)[email or web address].DKW Orig PrintD/T: S: 09/14/2018 (2020) [facility] NAME: HEATHER HOPE [facility] PHYS: NGA. Keanu Váz[place] [address] : 1990 AGE: 27 SEX: F LOC: MATT PHONE #: [phone] EXAM DATE: STATUS: REG ER FAX #: RAD NO: DC Dt: PAGE 1 Signed ReportHCG SERUM [id number] 20:04:00 Test Item Value Reference Range Interpretation [...] using aquantitative h CG assay. BASIC METABOLIC [id number] 19:51:00 Test Item Value Reference Range Interpretation [...] 9.3 MG/DL 8.7-10.5 N CA) CBC W/AUTO [id number] 19:46:00 Test Item Value Reference Range Interpretation [...] BA#) 0.05 x10 3/uL 0.0-0.2 N BLOOD [id number] 10:00:00 Test Item Value Reference Range Interpretation Comments CULTURE (BEAKER) (test No growth in 5 days code = 1095) HCG, QUANTITATIVE, [id number] 15:37:00 Test Item Value Reference Range Interpretation Comments GONADOTROPIN, CHORIONIC (HCG) 35661 mIU/mL 0-10 H QUANT (BEAKER) (test code = 649) Non- Females: <10 mIU/mL Females: Gestation Age Reference Range(mIU/mL) 0.2-1 Week 5-50 1-2 Weeks 50-500 2-3 Weeks 100-5,000 3-4Weeks 500-10,000 4-5 Weeks 1,000-50,000 5-6 Weeks 10,000-100,000 6-8 Weeks 15,000-200,000 2-3 Months 10,000-100,000COMPREHENSIVE METABOLIC [id number] 15:10:00 Test Item Value Reference Range Interpretation [...] PATIEN TS. CBC W/PLT COUNT & AUTO [id number] 14:53:00 Test Item Value Reference Range Interpretation [...] (test code = 2801) U/S, , FIRST [id number] 07:52:00Reason for exam:-> Reason for exam:->please include [...] 1 day. An embryonic pole is evident. Mascot-rump length measures 0.63 cm, correlating with estimated [...] Garrido Verified Date/Time: 05/17/2017 07:52:37 Reading Location: [facility] B1 C013X Ortho Consult Reading Room PREGNANCY SCREEN, [id number] 05:28:00 Test Item Value Reference Range Interpretation Comments TEST URINE (BEAKER) (test Positive code = 583) MR, BRAIN, WITHOUT [id number] 18:54:00Reason for exam:->Stroke evaluationFINAL REPORT MRI brain [...] Verified Date/Time: 05/15/2017 18:54:11 Reading Location: [facility] Radiology Reading Room EEG AWAKE AND [id number] 12:08:00Reason for exam:->? nonconvulsive statusDATE OF TEST: 05/15/2017DATE OF REPORT 05/15/2017 ACC: [id number] EE Start time: 1034 Stop time: 1054 ICD-10: R56.9CPT Code: 35033KXIAENO: 26 y/o woman with epilepsy found down [...] recordings.Marika Smith M.D.Neurophysiology FellowSwathi Harper M.D.Neurophysiology Attending [id number] 04:27:00 Test Item Value Reference Range Interpretation Comments PROCALCITONIN (BEAKER) (test code 0.17 ng/mL <0.05 H = 3036) SEPSIS RISK (ng/mL)Low: 0.05-0.50Intermediate: 0.51-2.00High: >=[id number] 03:15:00 Test Item Value Reference Range Interpretation Comments PHOSPHORUS (BEAKER) (test code = 3.1 mg/dL 2.3-4.7 604) [id number] 03:15:00 Test Item Value Reference Range Interpretation Comments MAGNESIUM (BEAKER) (test code = 1.9 mg/dL 1.6-2.6 627) BASIC METABOLIC [id number] 03:15:00 Test Item Value Reference Range Interpretation [...] code = 380) LACTIC ACID, VENOUS, WHOLE [id number] 03:09:00 Test Item Value Reference Range Interpretation Comments LACTATE BLOOD VENOUS (2) (BEAKER) 0.6 mmol/L 0.5-2.2 (test code = 2872) Effective 10/17/2015: Units/Reference Range ChangeNew: 0.5-2.2 mmol/L Previous: 5-20 mg/dLPROTHROMBIN TIME/[id number] 03:07:00 Test Item Value Reference Range Interpretation [...] = 2801) RAD, CHEST, 1 VIEW, NON [id number] 01:06:00Reason for exam:->possible infectionShould this be performed at the bedside?->YesFINAL REPORT History: Infection. Comparison: None. Findings: A single view of the chest is submitted. The cardiomediastinal contours are unremarkable. There is no focal consolidation, pneumothorax, large pleural effusion or evidence of overt pulmonary edema. There is no acute bony abnormality. Impression: No acute abnormality. Signed: Shabnam Dailey MDReport Verified Date/Time: 05/15/2017 01:06:06 Reading Location: [address] Reading Room
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
[2020-05-16 16:37] LABS: Urine Blood NEGATIVE (NEG); Urine Glucose NEGATIVE (NEG); Urine Protein NEGATIVE (NEG); Urine Specific Gravity 1.015 (1.005-1.030)
[2020-05-16 16:55] LABS: Barbiturates NEGATIVE (NEGATIVE); Benzodiazepines POSITIVE (NEGATIVE); Cocaine NEGATIVE (NEGATIVE); METHAMPHETAM NEGATIVE (NEGATIVE); Methadone NEGATIVE (NEGATIVE); Opiates NEGATIVE (NEGATIVE); Phencyclidine NEGATIVE (NEGATIVE); THC Cannibis NEGATIVE (NEGATIVE)
[2020-05-16 17:50] LABS: Absolute Lymphocytes (CBC) 1.7 K/uL (0.7-4.9); Basophils % 0.8 % (0-1.3); Hematocrit 29.9 % (36.0-45.0); Lymphocytes % 20.4 % (15.3-44.8); RBC Red Blood Cell Count 3.51 M/uL (3.86-4.86)
[2020-05-16 17:54] LABS: Protime INR 1.01
[2020-05-16 18:09] LABS: ALT/SGPT 25 U/L (12-78); AST/SGOT 24 U/L (15-37); Albumin 3.4 g/dL (3.4-5.0); Alkaline Phosphatase 62 U/L (45-117); BUN Blood Urea Nitrogen 5 mg/dL (7-18); Bicarbonate 23 mmol/L (21-32); Bilirubin Direct < 0.1 mg/dL (0-0.2); Bilirubin Total 0.3 mg/dL (0.2-1.0); Glucose Level 89 mg/dL (74-106); Potassium 3.5 mmol/L (3.5-5.1); Protein, Total 6.5 g/dL (6.4-8.2); Sodium Level 142 mmol/L (136-145)
--- NOTE | 2020-05-16 20:30 | ER ---
Nurse's Notes [facility] Name: Heather Hope Age: 29 yrs Sex: Female : 1990 Arrival Date: 05/16/2020 Time: 15:08 Bed 17 Private MD: Diagnosis: Major Depression;Suicidal Ideation Presentation: 05/16 15:20 Chief complaint: EMS states: "the pt is having suicidal behavior and this is the third jd3 attempt in the last 32 hours. she was cleared at [facility] for a Tylenol overdose and was going to be taken with mental health to [place], but with this attempt she needed to come to the ER. she reported drinking a bottle of hydrogen peroxide. she has vomited twice, once shortly after drinking it and once when we got her here. she is reporting a burning pain in her throat. poison control was called and they recommended treating for the burn and any other symptoms.". Coronavirus screen: At this time, the client does not indicate any symptoms associated with coronavirus-19. Ebola Screen: Patient negative for fever greater than or equal to 101.5 degrees Fahrenheit, and additional compatible Ebola Virus Disease symptoms. Initial Sepsis Screen: Does the patient meet any 2 criteria? No. Patient's initial sepsis screen is negative. Does the patient have a suspected source of infection? No. Patient's initial sepsis screen is negative. Risk Assessment: Do you want to hurt yourself or someone else? Patient reports no desire to harm self or others. Onset of symptoms was May 16, 2020. 15:20 Method Of Arrival: EMS: [facility] jd3 15:20 Acuity: DARLYN 2 jd3 VASCULAR TECHNOLOGIST SONOGRAPHER: 15:50 LMP 04/2020 jd3 Historical: - Allergies: 15:50 No Known Allergies; jd3 - Home Meds: 15:50 clobazam oral oral [Active]; Keppra 250 mg Oral tab [Active]; jd3 - PMHx: 15:50 Anemia; Seizures; Depression; jd3 - PSHx: 15:50 None; jd3 - Immunization history:: Adult Immunizations up to date. - Social history:: Smoking status: unknown. Screenin:25 Abuse screen: Denies threats or abuse. Denies injuries from another. Nutritional jl7 screening: No deficits noted. Tuberculosis screening: No symptoms or risk factors identified. Fall Risk Secondary diagnosis (15 points) seizures, Ambulatory Aid- None/Bed Rest/Nurse Assist (0 pts). Gait- Weak (10 pts.). Total Green Fall Scale indicates Low Risk Score (25-44 pts). Fall prevention measures have been instituted. Side Rails Up X 2 Placed close to Nursing Station Frequent Obs/Assesments occuring As available Patient and Family Educated on Fall Prevention Program and strategies. Assessment: 15:10 General: Appears in no apparent distress. uncomfortable, unkempt, Behavior is jl7 cooperative, drowsy. Pain: Complains of pain in "All over.". Neuro: Level of Consciousness is awake, obeys commands, drowsy. Oriented to person, place, time, situation, Speech is slurred. Cardiovascular: Patient's skin is warm and dry. Respiratory: Airway is patent Respiratory effort is even, unlabored, Respiratory pattern is regular, symmetrical. GI: Reports nausea, pt actively vomiting x 1. Derm: Skin is pink, warm \\T\\ dry. 15:17 Reassessment: Spoke to Roberto Carlos with Poison Control at [facility], recommendations aa5 are as follow: toxic work-up, GI upset is expected, monitor for vomiting, PO challenge is recommended, and supportive care as needed. Case # [id number]. . 15:20 Reassessment: Dr. Sanchez at bedside, pt lethargic, not verbally responding to ERD at [facility] this time. 15:40 Reassessment: Pt verbally responding at this time, requesting pain medications for pain [facility] all over. Informed pt the doctor was attempting to assess her and that she was too drowsy to talk with him. Pt denies taking anything other than ingesting the peroxide. 16:30 Reassessment: Unable to gain IV access, ERD notified, lab notified and will be to [facility] bedside to draw labs. 16:45 Reassessment: lab at bedside to draw labs. [facility] 17:25 Reassessment: Pt continues to be drowsy, reports taking Klonopin yesterday but nothing jl7 today. Lab unable to draw labs, ERD notified. 17:39 Reassessment: poison control updated on pt's condition. no change in plan of care. [facility] poison control will call back for an update at a later time. 18:50 Reassessment: Rohini smith [facility] at bedside . aa5 18:55 Reassessment: Rohini Maria Beauty Operator Apprentice speaking to Dr. Sanchez about pt not aa5 willing to speak to her at this time for psych evaluation. . 19:00 Reassessment: Rohini Maria Beauty Operator Apprentice able to speak to patient at this time and aa5 inpatient treatment is recommended, Dr. Sancehz was notified. . 20:12 Reassessment: report given Claudia Gibbs of [facility]. mg2 21:45 Reassessment: patient refused to go with the EMS to mental health. patient is on GRACIELA. 2 [facility] senior security architect and 2 exercise scientist came to restrain the patient because she is trying to run away and has been aggressive with the staff. 22:03 Reassessment: jacques huggins was called. mg2 22:45 Reassessment: patient out of restraint. patient is calmer. mg2 23:43 Reassessment: mental health officer/deputy at bedside talking with the patient. mg2 23:55 Reassessment: Reassessment: [facility] is asking to keep the [facility] patient in our ed first. she needs to be out of restraint for 6 hours before they can accept her. provider and charge nurse is well aware. spoke to sierra-coordinator of the [facility] facility. 12 00:44 Reassessment: report given to Herlinda of [facility]. [facility] 01:15 Reassessment: nurse to nurse report done with Gege of [facility]. mg2 05:49 Reassessment: waiting for mental health deputy to come and transfer the patient to [address] patient is calmer and talking to the sitter. 05:56 Reassessment: [id number]. mg2 07:04 General: Appears in no apparent distress. comfortable, Behavior is calm, cooperative. rb3 Neuro: Level of Consciousness is awake, alert, obeys commands, Oriented to person, place, time, situation. Cardiovascular: Patient's skin is warm and dry. Respiratory: Airway is patent Respiratory effort is even, unlabored, Respiratory pattern is regular, symmetrical. Musculoskeletal: Range of motion: intact in all extremities. 07:19 Reassessment: patient waiting for mental health deputy. patient to be transferred to [address] 08:00 Reassessment: Patient appears in no apparent distress at this time. No changes from rb3 previously documented assessment. Psych: 05/16 15:08 Subjective: Patient's mood is irritable, hopeless, Delusions are denied, Hallucinations jl7 are denied Having thoughts of suicide. Plan for suicide is attempt with drinking hydrogen peroxide. Objective: Speech is. Interventions: Removed personal items and placed in bag. Patient placed in hospital gown. Searched person for dangerous items. Urine collected and sent for urine drug test. Belonging list filled out. Suicide Risk Assessment: Sad Person Scale: Sex of patient: Female: Score 0 points. Age of patient: Score 1 point if patient 15-34. Depression: Score 1 point if signs of depression are present. Previous Attempt: Score 1 point if patient has previously attempted suicide. Substance Abuse: Score 0 point if patient does not abuse alcohol or drugs. Rational Thinking: Score 1 point if patient is lacking rational thinking. Social Support: Score 1 point if social support is lacking and/or unavailable. Organized Plan: Score 1 point if patient had a plan in place. Relationship: Score 1 point if patient is , , , or for a single male Chronic Sickness: Score 1 point if patient has illness, chronic, debilitating, or severe. TOTAL POINTS: If total points are 7-10, the proposed clinical action is to hospitalize or commit. Implement suicide precautions. Safety Checks: Personal items have been removed. Door is open. No visitors are present at this time. Pt denies substance abuse. Commitment: Patient will be an involuntary commitment. Vital Signs: 15:50 BP 127 / 81; Pulse 120; Resp 18 S; Temp 98.6(O); Pulse Ox 95% on R/A; Weight 68.04 kg jd3 (R); Height 5 ft. 2 in. (157.48 cm) (R); Pain 10/10; 17:07 Pulse 101; Resp 13; Pulse Ox 100% ; jl7 05/17 00:40 BP 120 / 81; Pulse 83; Resp 18; Temp 98; Pulse Ox 100% on R/A; mg2 07:04 BP 126 / 80; Pulse 87; Resp 16; Pulse Ox 99% ; rb3 05/16 15:50 Body Mass Index 27.44 (68.04 kg, 157.48 cm) d3 ED Course: 05/16 15:08 Patient arrived in ED. aa5 15:08 Arm band placed on Patient placed in an exam room, on a stretcher. aa5 15:10 Patient has correct armband on for positive identification. Placed in gown. Bed in low jl7 position. Call light in reach. Side rails up X2. Warm blanket given. 15:10 Pulse ox on. NIBP on. jl7 15:30 Missed attempt(s): 20 gauge in left antecubital area. Bleeding controlled, band aid jl7 applied, catheter tip intact. 15:40 Ramonita Barrera RN is Primary Nurse. jl7 15:42 Johnathan Sanchez MD is Attending Physician. kdr 15:44 Triage completed. jd3 15:45 Missed attempt(s): 22 gauge in right hand. Bleeding controlled, band aid applied, jl7 catheter tip intact. 16:00 Missed attempt(s): 22 gauge in right antecubital area. Bleeding controlled, band aid jl7 applied, catheter tip intact. 16:15 Missed attempt(s): 22 gauge in left antecubital area. Bleeding controlled, band aid jl7 applied, catheter tip intact. 16:20 Urine collected: clean catch specimen, clear. jl7 17:30 Initial lab(s) drawn, by ED staff, sent to lab. Inserted saline lock: 22 gauge in left jl7 EJ, using aseptic technique. ,using aseptic technique. Inserted by Dr. Sanchez. 18:00 EKG done, by ED staff, reviewed by Johnathan Sanchez MD. jl7 18:19 contacted [facility], asked for screener to come to er or facetime with bd pt. 18:35 was contacted by screener with [facility], will be here in about 15 min. bd 19:09 Primary Nurse role handed off by Ramonita Barrera RN jl7 19:10 Faxed pt chart to [facility]. tt3 20:07 Attending Physician role handed off by Johnathan Sanchez MD [facility] 20:07 Tariq Doe MD is Attending Physician. 7 20:16 [facility] called with the number to do Doc. to Doc between Dr. jasson Doe and Dr. Ramirez. 20:43 Adair Mccormick, CLAUDIA is Primary Nurse. mg2 22:00 IV discontinued, intact, bleeding controlled, No redness/swelling at site. Pressure mg2 dressing applied. 12 00:10 Faxed chart to other facilities. tt3 00:32 Herlinda from [facility] called to do nurse to nurse. tt3 02:43 Padmini with [facility] wanted to speak to the nurse of the patient. dm5 05:50 No provider procedures requiring assistance completed. mg2 07:19 Report given to CLAUDIA OROZCO. mg2 Administered Medications: 05/16 22:45 Drug: Ativan 2 mg Route: IM; Site: right deltoid; mg2 05/17 00:39 Follow up: Response: No adverse reaction; Marked relief of symptoms mg2 Outcome: 05/16 20:29 ER care complete, transfer ordered by . mh7 05/17 08:59 Patient left the ED. em1 Signatures: Harmony Brooke Deana, RN RN dmJohnathan Bryan MD MD kdr Martinez, Eric em1 Sivan Nash RN RN Ramonita Gallegos RN RN jl7 Eric Powell RN RN jd3 Gardose, Michele, RN RN mg2 Tariq Doe MD MD 7 Mundo Mendez tt3 Christine Jackson, RN RN rb3 Corrections: (The following items were deleted from the chart) 05/16 18:56 18:55 Reassessment: Rohini [facility] Beauty Operator Apprentice speaking to Dr. Sanchez about pt not aa5 willing to speak to her at this time. . aa5 19:02 17:25 Reassessment: Pt continue to be drowsy, reports taking Klonopin yesterday but jl7 nothing today. Lab unable to draw labs, ERD notified jl7 05/17 00:33 00:32 Faxed chart to other facilities. tt3 tt3 05:59 05/16 23:55 Reassessment: mg2 mg2 05/17 06:00 12 22:58 Reassessment: patient refused [facility]. patient mg2 is on GRACIELA. 2 senior security architect and 2 exercise scientist came to restrain the patient because she is trying to run away and has been aggressive with the staff. mg2
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
[2020-05-16] MEDS ORDERED: LORazepam 2 MG/ML VIAL ONE (22:58)
== END 2020-05-17 08:59 ==
LOC: ER 14:56
DX: T49.0X2A Poisoning by local antifungal, anti-infective and anti-inflammatory drugs, intentional self-harm, initial encounter (principal); F32.9 Major depressive disorder, single episode, unspecified; G40.909 Epilepsy, unspecified, not intractable, without status epilepticus; Z20.828 Contact with and (suspected) exposure to other viral communicable diseases
CPT/HCPCS: 93005; 85025; 80048; 36415; 80320; 80329 ×3; 81025; 85610; 80076; 80307 ×8; 85730; 81003; 96372; 99285; U0003

== ENCOUNTER 2020-06-05 13:41 | Emergency (ER) | payer OTHER ==
--- OUTSIDE RECORDS SUMMARY | 2020-06-05 13:45 | XMS REPORT | Clinical Summary ---
:1990 Author Organization [facility] Address [address] [place] [address] Care Team Providers Name Role Phone Unavailable Primary Care Provider Unavailable Allergies No Known Allergies Medications Medication Sig Dispensed Refills Start Date End Date Status levETIRAcetam (KEPPRA) Take 1 tablet 60 tablet 2 05/19/2017 Active 1000 MG tablet (1,000 mg total) by mouth 2 (two) times daily. vitamin Take 1 tablet by 90 tablet 3 05/20/2017 Active w/pnhxbfj-hsie-qvxhrk mouth daily. ( PLUS) 27 mg iron- [...] Not on file Results Not on fileafter 06/05/2019 [id number] Advance Directives For more information, please contact: [phone] Code Status Date Activated Date Inactivated Comments Full Code 05/14/2017 10:10 PM 05/19/2017 2:55 PM This code status was determined by: Patient
--- OUTSIDE RECORDS SUMMARY | 2020-06-05 13:45 | XMS REPORT | Clinical Summary ---
:1990 Author Organization [facility] Address [address] [place] [address] Care Team Providers Name Role Phone Asked, [...] Encounters Date Type Specialty Care Team Description 05/31/2020 Telephone Neurology Savannah Quintero MA 05/15/2020 Office Visit Neurosurgery Griffin Foster Complex [...] RN 11/12/2019 - Hospital Encounter General Internal BaileyShari Seiz ure (HCC) 11/15/2019 Medicine Adolfo, (Primary Dx) Caesar Huber MD Adenwala, Yusuf Ebrahim, MD 10/31/2019 Travel 10/24/2019 Travel after 06/05/2019 Immunizations Name Administration Dates Next Due Tdap [...] with No / Unsure 05/14/2020 8:10 AM FIRE HYDRANT 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 Last Filed Vital Signs Vital Sign Reading Time Taken Comments Blood Pressure 127/74 05/02/2020 5:45 PM FIRE HYDRANT OPERATOR Pulse 82 05/02/2020 5:45 PM FIRE HYDRANT OPERATOR Temperature 36.9 C (98.5 F) 05/02/2020 2:17 PM FIRE HYDRANT OPERATOR Respiratory Rate 14 05/02/2020 5:45 PM FIRE HYDRANT OPERATOR Oxygen Saturation 100% 05/02/2020 5:45 PM FIRE HYDRANT OPERATOR Inhaled Oxygen Concentration - - Weight 78 kg (172 lb) 05/02/2020 2:28 PM FIRE HYDRANT OPERATOR Height 160 cm (5' 3") 05/02/2020 2:28 PM FIRE HYDRANT OPERATOR Body Mass Index 30.47 05/02/2020 2:28 PM FIRE HYDRANT OPERATOR Plan of Treatment Health Maintenance Due Date Last Done Comments COVID-19 VACCINE (#1) 2005 CERVICAL CANCER SCREENING 2010 INFLUENZA VACCINE 01/14/2020 Procedures Procedure Name Priority Date/Time Associated Comments Diagnosis COVID-19 QUALITATIVE STAT 05/02/2020 4:10 Res ults for this PCR PM FIRE HYDRANT OPERATOR procedure are i n the results section. URINE CULTURE STAT 05/02/2020 3:51 Results fo r this PM FIRE HYDRANT OPERATOR procedure are i n the results section. CT HEAD WO CONTRAST STAT 05/02/2020 3:47 Resu lts for this PM FIRE HYDRANT OPERATOR procedure are i n the results section. SMEAR REVIEW STAT 05/02/2020 3:30 Results for this PM FIRE HYDRANT OPERATOR procedure are i n the results section. ESTIMATED GFR STAT 05/02/2020 3:30 Results fo r this PM FIRE HYDRANT OPERATOR procedure are i n the results section. BASIC METABOLIC PANEL STAT 05/02/2020 3:30 Re sults for this PM FIRE HYDRANT OPERATOR procedure are i n the results section. HCG QUALITATIVE, SERUM STAT 05/02/2020 3:30 R esults for this SCREEN PM FIRE HYDRANT OPERATOR procedure are i n the results section. HC COMPLETE BLD COUNT STAT 05/02/2020 3:30 Re sults for this W/AUTO DIFF PM FIRE HYDRANT OPERATOR procedure are i n the results section. URINALYSIS SCREEN AND STAT 05/02/2020 3:28 Re sults for this MICROSCOPY, WITH PM FIRE HYDRANT OPERATOR procedure a re in REFLEX TO CULTURE [...] Routine 04/06/2020 4:50 Res ults for this (INFO SPECIALIST) PM CDT procedure are i n the [...] are i n the results section. after 06/05/2019 Results COVID-19 qualitative PCR (05/02/2020 4:10 PM FIRE HYDRANT OPERATOR)Only the most recent of3 resultswithin the time period is included. Interpretation Negative results do not prec lude 2019-nCoV infection and should not be used as the sole basis for treatment or other patient management decisions. Negative results must be combined with clinical observations, patient history, and epidemiological [facility] information. [facility] COVID-19 qualitative Not-Detected Not-Detecte [facility] PCR result d [facility] COVID-19 qualitative See link below for [facility] PCR PDF Lab [facility]ORO[facility]RIANISM ReportComment: Case HOSPITAL Number: [id number] Specimen Nasopharyngeal swab Performing Organization Address [facility] Phon e Number [facility] DEPARTMENT OF PATHOLOGY AND [address] [place] [address] [phone] [address] [facility] Urine culture (05/02/2020 3:51 PM FIRE HYDRANT OPERATOR)Only the most recent of3 resultswithin the time period is included. Urine culture Mixed prem <=10-3 col/cc [facility] IST isolate Comment: HOSPITAL Specimen Information Specimen Source: Urine Specimen Site: Clean catch Specimen Urine Performing Organization Address [facility] Phon e Number [facility] DEPARTMENT OF PATHOLOGY AND [address] [place] [address] [phone] [address] [address] Head Wo Contrast (05/02/2020 3:47 PM FIRE HYDRANT OPERATOR)Only the most recent of4 results within the [...] No CT evidence of acute intracranial abnormality. [id number] Procedure Note Hm Interface, Radiology Results Incoming - 05/02/2020 3:57 PM FIRE HYDRANT OPERATOR EXAMINATION: CT HEAD WO CONTRAST CLINICAL HISTORY: [...] No CT evidence of acute intracranial abnormality. [id number] Performing Organization Address City/[facility]/ZIP Code Phon e Number [facility] [address] [place] [address] Smear review (05/02/2020 3:30 PM FIRE HYDRANT OPERATOR) Pathologist Sig nature Platelet slide Sana adequate [facility] Enlarged platelets Moderate (A) [facility] Specimen Plasma Performing Organization Address City/[facility] Phon e Number [facility] DEPARTMENT OF PATHOLOGY AND [address] [place], [place] [address] GENOMIC MEDICINE [facility] [address] [place] [address] Estimated GFR (05/02/2020 3:30 PM FIRE HYDRANT OPERATOR)Only the most recent of7 resultswithin the time period is included. Estimated GFR >=90 mL/min/1.73 [facility] Comment: m2 HOSPITAL Catergory Units Interpretation G1 [...] in 2014. Specimen Plasma Performing Organization Address City/[facility] Phon e Number [facility] DEPARTMENT OF PATHOLOGY AND [address] [place] [address] [phone] [address] CBC with platelet and differential (05/02/2020 3:30 PM FIRE HYDRANT OPERATOR)Only the most recent of6 resultswithin the time period is included. WBC 10.69 4.50 - 11.00 [facility] k/uL HOSPITAL RBC 4.71 4.20 - 5.50 [facility] m/uL [facility] HGB 13.5 12.0 - 16.0 [facility] g/dL [facility] HCT 42.4 37.0 - 47.0 % [facility] MCV 90.0 82.0 - 100.0 [facility] MCH 28.7 27.0 - 34.0 pg [facility] MCHC 31.8 31.0 - 37.0 [facility] g/dL [facility] RDW - SD 41.3 37.0 - 55.0 fL [facility] MPV 10.0 8.8 - 13.2 fL [facility] Platelet count 260 150 - 400 k/uL [facility] Nucleated RBC 0.00 /100 WBC [facility] Neutrophils 65.7 39.0 - 69.0 % [facility] Lymphocytes 24.7 (L) 25.0 - 45.0 % [facility] Monocytes 7.3 0.0 - 10.0 % [facility] Eosinophils 1.3 0.0 - 5.0 % [facility] Basophils 0.7 0.0 - 1.0 % [facility] Immature granulocytes 0.3Comment: 0.0 - 1.0 % [facility] "Immature HOSPITAL granulocytes" (promyelocytes , myelocytes, metamyelocytes ) Specimen Plasma Performing Organization Address City/[facility] Phon e Number [facility] DEPARTMENT OF PATHOLOGY AND [address] [place] [address] [phone] [address] hCG qualitative, serum screen (05/02/2020 3:30 PM FIRE HYDRANT OPERATOR) Pathologist [facility] hCG qualitative, NegativeComment: [facility] serum Sensitivity of HCG HOSPITAL test: 25 mIU/mL Specimen Blood Performing Organization Address [facility] Phon e Number [facility] DEPARTMENT OF PATHOLOGY AND [address] [place] [address] [phone] [address] Basic metabolic panel (05/02/2020 3:30 PM FIRE HYDRANT OPERATOR)Only the most recent of4 results within the time period is included. [facility] Sodium 140 135 - 148 mEq/L [facility] L Potassium 3.7 3.5 - 5.0 mEq/L [facility] Chloride 103 98 - 112 mEq/L [facility] CO2 25 24 - 31 mEq/L [facility] Anion gap 12@ANIO 7 - 15 mEq/L [facility] BUN 13 6 - 20 mg/dL [facility] Creatinine 0.70 0.50 - 0.90 mg/dL [facility] Glucose 93 65 - 99 mg/dL [facility] Calcium 9.6 8.3 - 10.2 mg/dL [facility] Specimen Plasma Performing Organization Address [facility] Phon e Number [facility] DEPARTMENT OF PATHOLOGY AND [address] [place] [address] [phone] [address] Urinalysis screen and microscopy, with reflex to culture (05/02/2020 3:28 PM FIRE HYDRANT OPERATOR)Only the most recent of3 resultswithin the time period is included. Pathologist [facility] Specimen site Clean catch [facility] Color, UA Yellow [facility] Appearance, UA Clear [facility] Specific gravity, UA 1.035 1.001 - 1.035 [facility] pH, UA 5.0 5.0 - 8.5 [facility] Protein, UA Negative Negative [facility] Glucose, UA Negative Negative [facility] Ketones, UA Trace (A) Negative [facility] Bilirubin, UA Negative Negative [facility] Blood, UA Negative Negative [facility] Nitrite, UA Negative Negative [facility] Urobilinogen, UA <2.0 <2.0 [facility] Leukocyte esterase, Small (A) Negative [facility]PITAL Epithelial cells, UA 6 /HPF [facility] WBC, UA 10 (H) 0 - 4 /HPF [facility] RBC, UA 2 0 - 5 /HPF [facility] Bacteria, UA Few None seen [facility] Yeast, UA None seen [facility] Yeast with None seen [facility] pseudohyphae, UA HOSPITAL Specimen Urine Performing Organization Address City/[facility]/ZIP [facility] Phon e Number [facility] DEPARTMENT OF PATHOLOGY AND [address] [place] [address] [phone] [address] POC glucose (04/06/2020 5:27 PM CDT)Only the most recent of2 resultswithin the time period is included. Pathologist Sig nature POC glucose 102 (H) 65 - 99 mg/dL [facility] Comment: HOSPITAL Superintendent [employer] Name: Gerber Mcdonald Device ID: [id number] Specimen Blood Performing Organization Address [facility] Phon e Number [facility] DEPARTMENT OF PATHOLOGY AND [address] [place] [address] [phone] [address] SS-B antibody (04/06/2020 4:50 PM CDT) Sjogren's SS-B 0.6 0.0 - 0.9 [facility] SS-B antibody Negative [facility] interp Comment: [facility]ISM SS-B/La antibody is seen in patients with Sjogre n syndrome, but may also be HOSPITAL positive with systemic lupus erythematosus (SLE), and systemic sclerosis. Specimen Serum Performing Organization Address [facility] Phon e Number [facility] DEPARTMENT OF PATHOLOGY AND [address] [place] [address] [address] SS-A antibody (04/06/2020 4:50 PM CDT) Sjogren's SS-A <0.2 0.0 - 0.9 [facility] SS-A antibody Negative [facility] interp Comment: [facility]ISM SS-A antibody is sensitive for Sjogren's syndrom e, but may also be positive HOSPITAL with systemic lupus erythematosus (SLE), and systemic sclerosis. Specimen Serum Performing Organization Address City/[facility] Phon e Number [facility] DEPARTMENT OF PATHOLOGY AND [address] [place] [address] [phone] [address] Matthew antibody (04/06/2020 4:50 PM CDT) Matthew antibody <0.2 0.0 - 0.9 [facility] Matthew antibody Negative [facility] interp Comment: [facility] Anti-Matthew antibodies occurs in 30-35% of system lupus erythematosus HOSPITAL (SLE) cases, but is very specific for SLE. It may also present in mixed connective-tissue disease (MCTD). Specimen Serum Performing Organization Address City/State/ZIP Code Phon e Number [facility] DEPARTMENT OF PATHOLOGY AND [address] [place] [address] [address] Scl-70 antibody (04/06/2020 4:50 PM CDT) Scleroderma SCL-70 <0.2 0.0 - 0.9 [facility] Ab [facility] Scl-70 antibody Negative [facility] interp Comment: [facility] Anti-Scl-70 (topoisomerase I) antibodies are found in patients with HOSPITAL systemic sclerosis (SSc or scleroderma), and have been reported to be predictive of diffuse cutaneous involvement. Anti-Scl- 70 antibodies may also be present in patients with systemic lupus erythe matosus (SLE). Specimen Serum Performing Organization Address City/State/ZIP Code Phon e Number [facility] DEPARTMENT OF PATHOLOGY AND [address] [place] [address] [phone] [address] Ribonucleic antibody (INFO SPECIALIST) (04/06/2020 4:50 PM CDT) Ribonucleic <0.2 0.0 - 0.9 [facility] antibody (INFO SPECIALIST) [facility] Ribonucleic Negative [facility] antibody (INFO SPECIALIST) Comment: [facility] interp Anti-ribonucleic protein (anti-INFO SPECIALIST) antibodies a re typically found in HOSPITAL patients with mixed connective tissue disease, but can also be seen in patients with systemic lupus erythematosus (SLE) or sy stematic sclerosis. Specimen Serum Performing Organization Address City/State/ZIP Code Phon e Number [facility] DEPARTMENT OF PATHOLOGY AND [address] [place] [address] [phone] [address] Bernarda-1 antibody (04/06/2020 4:50 PM CDT) Pathologist [facility] Bernarda-1 antibody <0.2 0.0 - 0.9 [facility] Bernarda-1 antibody Negative [facility] Comment: ZOROASTRIANISM Anti-Bernarda-1 antibody is predominantly found in pat ients with polymyositis, HOSPITAL especially for those with interstitial pulmonary fibro sis. It can also be found in patients with dermatomyositis. Specimen Serum Performing Organization Address City/[facility] Phon e Number [facility] DEPARTMENT OF PATHOLOGY AND [address] [place] [address] Centromere antibody (04/06/2020 4:50 PM CDT) Pathologist [facility] Centromere <0.2 0.0 - 0.9 [facility] Centromere Negative [facility] antibody inter Comment: [facility] Anti-centromere antibodies are found in patients with systemic sclerosis (SSc or scleroderma), especially for those with limite d cutaneous or CREST syndrome. Anti-centromere antibodies may also be found in patients with other rheumatic or connective tissue diseases. Specimen Serum Performing Organization Address City/[facility] Phon e Number [facility] DEPARTMENT OF PATHOLOGY AND [address] [place] [address] Double-stranded DNA (dsDNA) antibodies, Crithidia (04/06/2020 4:50 PM CDT) Pathologist Sig nature DNA Ab screen Not Detected Not-Detected [facility] Specimen Blood Performing Organization Address City/[facility] Phon e Number [facility] DEPARTMENT OF PATHOLOGY AND [address] [place] [address] Homocystine, plasma (04/05/2020 5:40 PM CDT)Only the most recent of3 results within the time period is included. Pathologist [facility] Homocysteine 6.7 0.0 - 15.0 [facility] Comment: umol/L HOSPITAL The risk for coronary vascular disease increases progr essively with homocysteine concentration. A 3.4 times greater risk is associated with a homocysteine concentration of greate r than 15.8 umol/L as compared to a concentration below 14.1 umol/L. Specimen is slightly hemolyzed. Interpret results ac cordingly. Specimen Plasma Performing Organization Address City/[facility]/ZIP Code Phon e Number [facility] DEPARTMENT OF PATHOLOGY AND [address] [place] [address] [phone] [address] Potassium level (04/05/2020 5:40 PM CDT) Pathologist Sig christopher Potassium 3.7 3.5 - 5.0 mEq/L [facility] L Specimen Plasma Performing Organization Address City/[facility] Phon e Number [facility] DEPARTMENT OF PATHOLOGY AND [address] [place] [address] [phone] [address] EEG (routine) (04/05/2020 11:03 AM CDT) Narrative [...] period is included. Syphilis total Non-reactiveComment Non-reactive [facility] antibody : No serological HOSPITAL evidence of syphilis infection. Specimen Serum Narrative Performed At Unable to perform testing, specimen is [facility] DEPARTMENT OF PATHOLOGY AND GENOMIC _HEMOLYZED___. Recollect [...] Organization Address City/State/ZIP Code Phon e Number [facility] DEPARTMENT OF PATHOLOGY AND [address] [place] [address] [phone] [address] HIV Ag/Ab combination (04/05/2020 4:00 AM CDT)Only the most recent of2 results within the time period is included. HIV Ag/Ab combination Non-reactive Non-reactive [facility] Specimen Blood Performing Organization Address City/State/ZIP Code Phon e Number [facility] DEPARTMENT OF PATHOLOGY AND [address] [place] [address] [address] Vitamin D 25 hydroxy level (04/05/2020 4:00 AM CDT)Only the most recent of2 resultswithin the time period is included. Pathologist [facility] Vitamin D, 12.1 (L) 30.0 - 150.0 [facility] 25-hydroxy Comment: ng/mL HOSPITAL This assay reports [...] alternative methods. Specimen Blood Performing Organization Address City/[facility] Phon e Number [facility] DEPARTMENT OF PATHOLOGY AND [address] [place] [address] [phone] [address] Rheumatoid factor (04/05/2020 4:00 AM CDT)Only the most recent of2 results within the time period is included. Pathologist [facility] Rheumatoid factor <10 0 - 13 IU/mL [facility] Specimen Plasma Narrative Performed At Unable to perform testing, specimen is [facility] DEPARTMENT OF PATHOLOGY AND [facility] _HEMOLYZED___. Recollect MEDICINE requested for __K__ (tests). __YIFANJONATHAN MARGARITA/[email or web address] (name/location) notified by ___JT_ (tech ID) at __ 04/05/2020 07:01 __ (date/time). Credit issued. Performing Organization Address City/[facility] Phon e Number [facility] DEPARTMENT OF PATHOLOGY AND [address] [place] [address] [phone] [address] C-reactive protein (04/05/2020 4:00 AM CDT)Only the most recent of2 results within the time period is included. Pathologist [facility] nature CRP <0.30 0.00 - 0.50 mg/dL [facility] Specimen Plasma Performing Organization Address City/[facility]/ZIP Code Phon e Number [facility] DEPARTMENT OF PATHOLOGY AND [address] [place] [address] [phone] [address] T3 (04/05/2020 4:00 AM CDT) Pathologist Sig nature T3 89 80 - 200 ng/dL [facility] Specimen Plasma Performing Organization Address City/[facility] Phon e Number [facility] DEPARTMENT OF PATHOLOGY AND [address] [place] [address] [phone] [address] Thyroid stimulating hormone (04/05/2020 4:00 AM CDT)Only the most recent of2 resultswithin the time period is included. Pathologist Sig nature TSH 1.26 0.27 - 4.20 uIU/mL [facility] Specimen Plasma Performing Organization Address [facility] Phon e Number [facility] DEPARTMENT OF PATHOLOGY AND [address] [place] [address] [phone] [address] T4, free (04/05/2020 4:00 AM CDT)Only the most recent of2 resultswithin the time period is included. Pathologist Sig nature T4, free 1.1 0.9 - 1.7 ng/dL [facility] L Specimen Plasma Performing Organization Address [facility] Phon e Number [facility] DEPARTMENT OF PATHOLOGY AND [address] [place] [address] [phone] [address] Magnesium level (04/05/2020 4:00 AM CDT)Only the most recent of3 resultswithin the time period is included. Pathologist Sig nature Magnesium 1.8 1.6 - 2.6 mg/dL [facility] L Specimen Plasma Performing Organization Address City/[facility] Phon e Number [facility] DEPARTMENT OF PATHOLOGY AND [address] [place] [phone] Folate level (04/05/2020 4:00 AM CDT)Only the most recent of2 resultswithin the time period is included. Pathologist Sig nature Folate 14.0 4.8 - 24.2 ng/mL [facility] Specimen Serum Performing Organization Address City/[facility] Phon e Number [facility] DEPARTMENT OF PATHOLOGY AND [address] [place], [place] [address] [address] Vitamin B12 level (04/05/2020 4:00 AM CDT)Only the most recent of2 results within the time period is included. Vitamin B12 739 211 - 946 [facility] Comment: pg/mL HOSPITAL Significant overlap exists between normal and deficien cy states. However, most patients with deficiencies will have Ser um B12 <200 pg/mL. Specimen Serum Performing Organization Address City/[facility] Phon e Number [facility] DEPARTMENT OF PATHOLOGY AND [address] [place] [address] [phone] [address] Sedimentation rate (04/04/2020 9:00 PM CDT)Only the most recent of2 results within the time period is included. Pathologist Sig nature Sedimentation rate 6 0 - 20 mm/hr [facility] Specimen Plasma Performing Organization Address City/[facility] Phon e Number [facility] DEPARTMENT OF PATHOLOGY AND [address] [place], [place] [address] [place] [id number] [place] [address] CBC hemogram (04/04/2020 9:00 PM CDT) Pathologist Sig nature WBC 7.66 4.50 - 11.00 k/uL [facility] RBC 4.23 4.20 - 5.50 m/uL [facility] HGB 12.2 12.0 - 16.0 g/dL [facility] HCT 36.8 (L) 37.0 - 47.0 % [facility] MCV 87.0 82.0 - 100.0 fL [facility] MCH 28.8 27.0 - 34.0 pg [facility] MCHC 33.2 31.0 - 37.0 g/dL [facility] RDW - SD 40.3 37.0 - 55.0 fL [facility] MPV 10.1 8.8 - 13.2 fL [facility] Platelet count 247 150 - 400 k/uL [facility] Nucleated RBC 0.00 /100 WBC [facility] Specimen Plasma Performing Organization Address City/[facility] Phon e Number [facility] DEPARTMENT OF PATHOLOGY AND [address] [place], [place] [address] GENOMIC MEDICINE [facility] [address] [place] [address] Keppra (Levetiracetam) level (04/04/2020 8:15 PM CDT)Only [...] vomiting. This levetiracetam (Keppra) immunoassay uses the [employer] reagents, which has known cross-reactivity with the dr norma brownivaracetam (Briviact) and may report inaccurate resu lts. Patients transitioning from levetiracetam to brivarace goldstein or those who are using both medications should not monitor drug concentrations with the [employer] assay. These p atients should be monitored using a validated chromatographic methodology that distinguishes between drugs to determine drug con centrations. Performed By: [facility] [address] [place] [address] Value Engineer: Gege Pierson MD Specimen Serum Performing Organization Address City/[facility] Phon e Number [facility] [address] [place] [address] [facility] [address] [place] [address] Urine drugs of abuse screen (04/04/2020 7:19 PM CDT)Only the most recent of2 resultswithin the time period is included. Amphetamine screen, Negative [place] [facility] Barbiturate screen, Negative [place] [facility] Benzodiazepine Positive (A) [place] screen, urine [facility] Cocaine screen, urine Negative [facility] Methadone metabolite Negative [place] (EDDP), urine [facility] Opiates screen, urine Negative [facility] Oxycodone screen, Negative [place] [facility] Phencyclidine screen, Negative [place] [facility] Tricyclic screen, Negative [place] [facility] Cannabinoid screen, Negative [place] urine Comment: ZOROASTRIANISM Drug screen [facility] Amphetamines 1000 ng/mL Barbiturates 200 ng/mL Benzodiazepines [...] requir ed. Specimen Urine Performing Organization Address [facility] Phon e Number [facility] DEPARTMENT OF PATHOLOGY AND [address] [place] [address] [phone] [address] Prolactin level (04/04/2020 7:07 PM CDT)Only the most recent of2 resultswithin the time period is included. Pathologist Sig nature Prolactin 13 5 - 23 ng/mL [facility] Specimen Plasma Performing Organization Address [facility] Phon e Number [facility] DEPARTMENT OF PATHOLOGY AND [address] [place] [address] [phone] [address] ECG 12 lead (04/04/2020 7:02 PM CDT)Only [...] 11 [facility] EKG impression Normal sinus [facility] rhythm-Possible Anterior infarct , age undetermined-Abnormal ECG-In automated comparison with ECG of 12-NOV-2019 21:10,-No significant change was found- Specimen Narrative Performed At This result has an attachment that is no t available. Performing Organization Address [facility] Phon e Number [facility] MUSE [address] [place] [address] CRITICAL CARE (04/04/2020 6:48 PM CDT) Narrative Performed At Max Ron MD 04/20/2020 3:37 PM Critical Care Performed by: Enoc Byers Authorized by: Max Ron MD Critical care provider statement: Critical care time (minutes): 20 Critical care was necessary to treat or prevent imminent or life-threatening deterioration of the following condit ions: [employer] TECHNICIAN failure or compromise Critical care was time [...] Lactic acid 1.1 0.5 - 2.2 mmol/L [facility] Specimen Plasma Performing Organization Address [facility] Phon e Number [facility] DEPARTMENT OF PATHOLOGY AND [address] [place] [phone] Phosphorus level (04/04/2020 6:33 PM CDT) Pathologist Sig nature Phosphorus 3.7 2.4 - 4.5 mg/dL [facility] L Specimen Plasma Performing Organization Address City/[facility] Phon e Number [facility] DEPARTMENT OF PATHOLOGY AND [address] [place] [address] [phone] [address] Comprehensive metabolic panel (04/04/2020 6:33 PM CDT)Only the most recent of3 resultswithin the time period is included. Sodium 138 135 - 148 [facility] mEq/L [facility] Potassium 3.6 3.5 - 5.0 [facility] mEq/L [facility] Chloride 105 98 - 112 [facility] mEq/L [facility] CO2 22 (L) 24 - 31 mEq/L [facility] Anion gap 11@ANIO 7 - 15 mEq/L [facility] BUN 7 6 - 20 mg/dL [facility] Creatinine 0.46 (L) 0.50 - 0.90 [facility] mg/dL HOSPITAL Glucose 96 65 - 99 mg/dL [facility] Calcium 9.2 8.3 - 10.2 [facility] mg/dL [facility] Protein 7.1 6.3 - 8.3 [facility] Comment: g/dL [facility] [place] 4.6-7.0 g/dL 1 week 4.4-7.6 g/dL 7 months-1year 5.1-7.3 g/dL 1-2 years 5.6-7.5 g/dL >3 years 6.0-8.0 g/dL 18-150 6.3-8.3 g/dL Albumin 3.8 3.5 - 5.0 [facility] g/dL [facility] A/G ratio 1.2 0.7 - 3.8 [facility] Alkaline phosphatase 64 35 - 104 U/L [facility] AST 20 10 - 35 U/L [facility] ALT 14 5 - 50 U/L [facility] Total bilirubin 0.4 0.0 - 1.2 [facility] mg/dL [facility] Specimen Plasma Performing Organization Address City/State/ZIP Code Phon e Number [facility] DEPARTMENT OF PATHOLOGY AND [address] [place] [phone] GENOMIC MEDICINE [address] [address] PET Brain Metabolic Eval (03/30/2020 1:51 PM [...] cerebellar hypometabolism sugg ests a pharmacologic effect. [facility]-[id number] Procedure Note Interface, Radiology Results Incoming - [...] cerebellar hypometabolism sugg ests a pharmacologic effect. [facility]-[id number] Performing Organization Address City/State/ZIP Code Phon e Number [facility] [address] [place] [address] MRI Brain W Wo Contrast (03/27/2020 1:50 PM CDT)Only the most recent of2 resultswithin the time period is included. Specimen Narrative Performed At This result has an attachment that is no t available. EXAMINATION: MRI BRAIN W WO CONTRAST [facility] CLINICAL HISTORY: R56.9 Unspecified convulsions, Sei zures COMPARISON: Brain MRI on 11/13/[address] on 03/12/20. TECHNIQUE: High-resolution brain MRI wit hout and with intravenous gadolinium contrast acquired using 7T MRI with 1Tx/32Rx head coil. Acquired sequences include MPRAGE, FH1HVNY, T2 JAEL, T2 FLAIR, SWI, and DTI [...] abnormality identified to explain patien t's seizures. [facility]-[id number] Procedure Note Hm Interface, Radiology Results Incoming - 03/28/2020 2:52 PM CDT EXAMINATION: MRI BRAIN W WO CONTRAST CLINICAL HISTORY: R56.9 Unspecified con vulsions, Seizures COMPARISON: Brain MRI on 11/13/[address] on 03/12/2020. TECHNIQUE: High-resolution brain MRI wit hout and with intravenous gadolinium contrast acquired using 7T MRI with 1Tx/32Rx head coil. Acquired sequences include MPRAGE, CH0AOUW, T2 JAEL, T2 FLAIR, SWI, and DTI [...] structural abnormality identified to explain patient's seizures. [facility]-[id number] Performing Organization Address City/State/ZIP Code Phon e Number [facility] [address] [place] [address] Epilepsy/Seizure monitoring (03/15/2020 12:14 PM CDT) Narrative [...] was recorded simultaneously with video throughout the [facility]. The EEG was visually inspected and analyzed [...] time period is included. Manual differential PERFORMED [facility] Neutrophils 51.0 39.0 - 69.0 % [facility] Lymphocytes 34.0 25.0 - 45.0 % [facility] Monocytes 13.0 (H) 0.0 - 10.0 % [facility] Eosinophils 2.0 0.0 - 5.0 % [facility] Basophils 0.0 0.0 - 1.0 % [facility] Metamyelocytes 0 % [facility] Promyelocytes 0 % [facility] Platelet slide review Sana adequate [facility] Anisocytosis Moderate [facility] Ovalocytes Moderate [facility] Enlarged platelets Moderate (A) [facility] Specimen Performing Organization Address City/State/ZIP Code Phon e Number [facility] DEPARTMENT OF PATHOLOGY AND [address] [place], [place] [phone] GENOMIC MEDICINE [facility] [address] [place] [address] Continuous EEG monitoring (11/15/2019 1:22 AM CDT) [...] entire EEG and agree with the above syed leung. Richard Henley MD Total iron binding capacity (11/13/2019 4:00 AM CDT) Pathologist Sig nature Iron level 20 (L) 37 - 145 ug/dL [facility] Iron binding capacity 335 200 - 400 ug/dL [facility] % Saturation 6.0 (L) 15.0 - 38.0 % [facility] Specimen Blood Performing Organization Address City/[facility]/ZIP [facility] Phon e Number [facility] DEPARTMENT OF PATHOLOGY AND [address] [place] [address] [phone] [address] Ferritin level (11/13/2019 4:00 AM CDT) Pathologist Sig nature Ferritin level <13 (A) 13 - 150 ng/mL [facility] Specimen Blood Performing Organization Address City/[facility] Phon e Number [facility] DEPARTMENT OF PATHOLOGY AND [address] [place] [address] [address] MARCELINO titer (11/12/2019 7:40 PM CDT) Pathologist Sig nature MARCELINO titer 1:160 (A) Not-Detected [facility] MARCELINO pattern Homogeneous (A) Not-Detected [facility] Specimen Blood Performing Organization Address City/[facility] Phon e Number [facility] DEPARTMENT OF PATHOLOGY AND [address] [place] [address] [address] MARCELINO (11/12/2019 7:40 PM CDT) MARCELINO screen Positive (A) Negative [facility] Comment: HOSPITAL Test performed using [employer] [place] DAPI MARCELINO kit (Indirect Immunofluorescence Assay) for Anti-Nuclear Antibody on [employer] 160 Analyzer. Specimen Blood Performing Organization Address City/[facility]/ZIP [facility] Phon e Number [facility] DEPARTMENT OF PATHOLOGY AND [address] [place] [address] [phone] [address] Creatine kinase, total (CPK) (11/12/2019 7:40 PM CDT) Pathologist Sig nature Creatine kinase 56 26 - 192 U/L [facility] Specimen Performing Organization Address City/[facility]/ZIP Code Phon e Number [facility] DEPARTMENT OF PATHOLOGY AND [address] [place] [phone] [facility] [address] [place] [address] Cortisol level, random (11/12/2019 7:40 PM CDT) Cortisol, random 2 ug/dL [facility] Comment: HOSPITAL Reference Ranges are not established for non-timed Cor tisol levels. Reference Range for Timed Cortisol: 6 - 10 AM 6 - 18 ug/d l 4 - 8 PM 3 - 11 ug/ dl Specimen Blood Performing Organization Address City/State/ZIP Code Phon e Number [facility] DEPARTMENT OF PATHOLOGY AND [address] [place], [place] [address] [facility] [address] [place] [address] CT Cervical Spine Wo Contrast (11/12/2019 6:12 [...] subluxation identif ied in the cervical spine. [facility]-[id number] Procedure Note Interface, Radiology Results Incoming - [...] subluxation identif ied in the cervical spine. [facility]-[id number] Performing Organization Address [facility] Phon e Number [facility] [address] [place] [address] CT Maxillofacial Wo Contrast (11/12/2019 6:09 PM [...] unre markable. The paranasal sinuses are clear. [facility]-[id number] Procedure Note Hm Interface, Radiology Results Incoming [...] unre markable. The paranasal sinuses are clear. [facility]-[id number] Performing Organization Address [facility] Code Phon e Number [facility] [address] [place] [address] XR Chest 1 Vw Portable (11/12/2019 5:35 PM CDT) Specimen Narrative Performed At EXAMINATION: XR CHEST 1 VW PORTABLE [facility] CLINICAL HISTORY: SOB XR CHEST 1 VW PORTABLE images are subm itted COMPARISON: NONE FINDINGS: The cardiac silhouette is normal in size. The pulmonar y vasculature is within normal limits. The lung zones have no focal are a of consolidation. There is no pleural effus ion or pneumothorax. IMPRESSION: 1. There is no acute cardiopulmonary dis ease. [id number] Procedure Note Hm Interface, Radiology Results Incoming [...] There is no acute cardiopulmonary dis ease. [id number] Performing Organization Address [facility] Phon e Number [facility] [address] [place] [address] Alcohol level, blood (11/12/2019 5:04 PM CDT) Alcohol None Detected mg/dL [facility] Comment: HOSPITAL Normal None Detected Legal Intoxication in [place] 80 mg/dL (0.08%) - Whole Blood Toxic Concentration 200 mg/dL (0.2%) Potentially Fatal 350 - 500 mg/dL (0. 35 - 0.5%) Alcohol percent None Detected % [facility] Specimen Blood Performing Organization Address [facility] Phon e Number [facility] DEPARTMENT OF PATHOLOGY AND [address] [place] [address] [phone] [address] hCG qualitative, urine screen (11/12/2019 2:44 PM CDT) hCG qualitative, NegativeComment: [facility] urine Sensitivity of HCG [facility] test: 25 mIU/mL Specimen Urine Performing Organization Address [facility] Phon e Number [facility] DEPARTMENT OF PATHOLOGY AND [address] [place] [address] [phone] [address] after 06/05/2019 Advance Directives For more information, please contact: [phone] Type Date Recorded Patient Residential Advisor Explanati on Advance Directives, Living 05/02/2020 4:24 PM Will and Medical Power of Chemical Maker
--- OUTSIDE RECORDS SUMMARY | 2020-06-05 13:49 | XMS REPORT | Continuity of Care Document ---
:1990 Author Organization [facility] t Address [address] [place] [address] Care Team Providers Name Role Phone Asked, Pcp Primary Care Physician Unavailable Leon CRUZ Attending Clinician Unavailable Kartik MENDOZA Attending Clinician Room, Therapy Tub Attending Clinician Unavailable Chauncey Foster MD Attending Clinician Vini Turner MD Attending Clinician Gaye MENDOZA Attending Clinician Darren CRUZ Attending Clinician Unavailable Chandrika Ron MD Attending Clinician Alissa MENDOZA Attending Clinician Ninfa MENDOZA Attending Clinician Niki TAYLOR, A Attending Clinician Unavailable Di TAYLOR Attending Clinician Unavailable Adolfo Bailey MD Attending Clinician Liana MENDOZA, Susi Attending Clinician BRANDO RODAS Attending Clinician Unavailable ALISSA Admitting Clinician Unavailable GAYE Admitting Clinician Unavailable Juliano DEJESUS Admitting Clinician Unavailable Payers Payer Name Policy Type Policy Effective Date Expiration Date Sour ce Number CIGNACIGNA OPEN [id number] 2019 [place] ACCESS/NETWORKxx 00:00:00 Methodis t [id number] 0-PresentHMO MEDICAIDMEDICAID [id number] 2019 [place] [id number] 00:00:00 Methodis t 0-PresentMedicai d Problems Condition Condition Condition Status Onset Resolution Last Treating Co mments Source Name Details Category Date Date Treatment Clinician Date Epilepsy Epilepsy Disease Active 2019-06 [place] 0-21 [facility]: st 00 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 00:00: st with with 00 generaliza generaliza tion and tion and with with intractabl intractabl e epilepsy e epilepsy Seizure Seizure Disease Active [place] 5-30 [facility] st 00 Hypokalemi Hypokalemi Disease Active 2016-[address] [facility] [place] Acute Acute Disease Active 2016-[address] [facility] [address] encephalop encephalop 1-30 [facility] - athy athy 00:00: Medical 00 Center Seizure Seizure Disease Active 2016-[address] [facility] [address] disorder disorder 1-30 [facility] 00 [place] Leukocytos Leukocytos Disease Active 2016-06 [facility] [...] Allergie 1-24 [facility] s 00:00: Jess 00 [facility] Social History Social Habit Start Date Stop Date Quantity Comments Source Sex Assigned At [facility] ethodist Exposure to Not sure [place] Metho dist SARS-CoV-2 (event) Tobacco use and 2020-05-02 2020-05-02 Never used [facility] ethodist exposure 00:00:00 00:00:00 Alcohol intake 2020-05-02 2020-05-02 Ex-drinker [facility] thodist 00:00:00 00:00:00 (finding) Smoking Status Start Date Stop Date Source Never smoker [place] Methodis t Medications Ordered Filled Start Stop Current Ordering Indication Dosage Frequency Signature Comments Components Source Medication Medication Date Date Medication? Clinician (SIG) Name Name cloBAZam 2019-06- Yes 30mg QD Take 3 [place] (ONFI) 10 1-12 05-11 tablets Method i mg tablet 00:00: 23:59 ([address] 00 :00 total) by mouth daily for 180 days. ergocalcife 2019-06- No 02831X Q7D Take 1 [place]l 0-31 [...] times a day for 30 days. cloBAZam 2019-06 2020- No 10mg Q.5D Take 1 [place] (ONFI) 10 0-24 11-12 tablet (10 Met hodi mg tablet 00:00: 00:00 mg total) st 00 :00 by mouth 2 (two) times a day for 30 days. levETIRAcet 2019-06 2020- No 1250mg Q.5D Take 5 H [...] Q.5D Take 3 [place] (KEPPRA) 11-14- tablets Meth maude 750 MG 00:00: 23:59 (2,[address] tablet 00 :00 total) by mouth 2 (two) times a day for 30 days. B 2019- No 1{tbl} QD Take 1 Nunez complex-vit 11-14 tablet by Nc marques carter 00:00: 23:[address] C-folic [...] ts Source Name Name Tdap 2020-05-02 Completed [place] 00:00:00 Christian Vital Signs Vital Name Observation Time Observation Value Comments Source Systolic blood 2020-05-02 17:45:00 127 mm[Hg] Sonjato n Christian pressure Diastolic blood 2020-05-02 17:45:00 74 mm[Hg] Julee on Christian pressure Heart rate 2020-05-02 17:45:00 82 /min Enrique Piedra Respiratory rate 2020-05-02 17:45:00 14 /min Sonja ton Christian Oxygen saturation in 2020-05-02 17:45:00 100 /min Enrique Piedra Arterial blood by Pulse oximetry Body height 2020-05-02 14:28:00 160 cm Enrique Piedra Body weight 2020-05-02 14:28:00 78.019 kg Enrique Piedra BMI 2020-05-02 14:28:00 30.47 kg/m2 Enrique Piedra Body temperature 2020-05-02 14:17:21 36.94 Melody Sonja Piedra Procedures Procedure Date / Time Performing Clinician Source Performed COVID-19 QUALITATIVE PCR 2020-05-02 16:10:00 Daniel Turner URINE CULTURE 2020-05-02 15:51:[address] HEAD WO CONTRAST 2020-05-02 15:47:02 TurnerDaniel arroyo on Christian HC COMPLETE BLD COUNT 2020-05-02 15:30:00 Turner, Daniel Martini Chandler aguila Christian W/AUTO DIFF HCG QUALITATIVE, SERUM 2020-05-02 15:30:00 Turner, Daniel Mccabe allan Christian SCREEN BASIC METABOLIC PANEL 2020-05-02 15:30:00 Daniel Turnerok Chandler aguila Christian ESTIMATED GFR 2020-05-02 15:30:00 TurnerDaniel ethodist SMEAR REVIEW 2020-05-02 15:30:00 Terri Turnerori Rai ethodist URINALYSIS SCREEN AND 2020-05-02 15:28:00 Daniel Turnerok Chandler Piedra MICROSCOPY, WITH REFLEX TO CULTURE POC GLUCOSE 2020-04-06 17:27:00 Freddy Ocasio Meth odadriano DOUBLE-STRANDED DNA 2020-04-06 16:50:00 Ninfa Johnson Christian (DSDNA) ANTIBODIES, Ninfa CRITHIDIA CENTROMERE ANTIBODY 2020-04-06 16:50:00 Ninfa Johnson Christian Ahmed SS-B ANTIBODY 2020-04-06 16:50:00 Ninfa Johnson Nc thodist Ahmed POTASSIUM LEVEL 2020-04-05 17:40:00 Reza Avelar Meth odist HOMOCYSTINE, PLASMA 2020-04-05 17:40:00 Reza Avelar Christian EEG AWAKE/DROWSY LESS 2020-04-05 11:03:26 Reza Avelar Christian THAN 41 MIN HC COMPLETE BLD COUNT 2020-04-05 04:00:00 Caesar Maxwell on Christian W/AUTO DIFF VITAMIN B12 LEVEL 2020-04-05 04:00:00 Reza Avelar Nc thodist C-REACTIVE PROTEIN 2020-04-05 04:00:00 Reza Avelar ethodist HOMOCYSTINE, PLASMA 2020-04-05 04:00:00 Reza Avelar Christian RHEUMATOID FACTOR 2020-04-05 04:00:00 Reza Avelar Me thodist THYROID STIMULATING 2020-04-05 04:00:00 Valentino Reza Nunez Christian HORMONE T4, FREE 2020-04-05 04:00:00 Valentino Reza Nunez Meth odist T3 2020-04-05 04:00:00 Reza Avelar Meth odist SYPHILIS TOTAL ANTIBODY 2020-04-05 04:00:00 Reza Avelar Christian HIV AG/AB COMBINATION 2020-04-05 04:00:00 Reza Avelar n Christian VITAMIN D 25 HYDROXY 2020-04-05 04:00:00 Reza Avelar Christian LEVEL BASIC METABOLIC PANEL 2020-04-05 04:00:00 Caesar Maxwell on Christian FOLATE LEVEL 2020-04-05 04:00:00 Caesar Maxwell Met hodist MAGNESIUM LEVEL 2020-04-05 04:00:00 Caesar Maxwell Met hodist ESTIMATED GFR 2020-04-05 04:00:00 Caesar Maxwell Met hodadriano COVID-19 QUALITATIVE PCR 2020-04-04 22:52:[address] HEAD WO CONTRAST 2020-04-04 21:17:59 Max Ron n Christian CBC HEMOGRAM 2020-04-04 21:00:00 Max Ron Me thodist SEDIMENTATION RATE 2020-04-04 21:00:00 Max Ron URINE CULTURE 2020-04-04 20:52:00 Max Ron Me thodist KEPPRA (LEVETIRACETAM) 2020-04-04 20:15:00 Max Ronu ston Christian LEVEL URINALYSIS SCREEN AND 2020-04-04 19:19:00 Max Ron Christian MICROSCOPY, WITH REFLEX TO CULTURE URINE DRUGS OF ABUSE 2020-04-04 19:19:00 Max Ron on Christian SCREEN PROLACTIN LEVEL 2020-04-04 19:07:00 Max Ron Me thodist ECG 12-LEAD 2020-04-04 19:02:38 Max Ron Me thodist CRITICAL CARE 2020-04-04 18:48:10 Lila Byers Enrique Meth odist COMPREHENSIVE METABOLIC 2020-04-04 18:33:00 Max Ron Eliot farooq Christian PANEL LACTIC ACID LEVEL, SEPSIS 2020-04-04 18:33:00 AsafMax Chandrika Nunez Christian - NOW AND REPEAT 2X EVERY 3 HOURS MAGNESIUM LEVEL 2020-04-04 18:33:00 Max Ron Chandrika Nunez Me thodist PHOSPHORUS LEVEL 2020-04-04 18:33:00 Max Ron M ethodist ESTIMATED GFR 2020-04-04 18:33:00 Max Ron Me thodist PET BRAIN METABOLIC EVAL 2020-03-30 13:51:58 Richard Huizar Chandler aguila Christian POC GLUCOSE 2020-03-30 12:29:00 Richard Huizar Nadege odist MRI BRAIN W WO CONTRAST 2020-03-27 13:50:00 Gaye Richard lemus Christian MONITORED VIDEO-EEG 60 2020-03-15 12:14:01 Pinky Huizarnina ewing Christian HRS 1 MIN-74 HRS MONITORED W VIDEO DAILY 2020-03-15 00:12:21 Gaye Richard lemus Christian MONITORED W VIDEO DAILY 2020-03-14 00:24:17 Gaye Richard lemus Christian EEG SETUP 2020-03-13 00:17:20 Richard Huizar Meth odist HC COMPLETE BLD COUNT 2020-03-12 14:18:00 Ulises Choudhary W/AUTO DIFF COMPREHENSIVE METABOLIC 2020-03-12 14:18:00 Ulises Choudhary Christian PANEL ESTIMATED GFR 2020-03-12 14:18:00 Pinky Huizarnina Nunez Meth odist MAGNESIUM LEVEL 2020-03-12 14:18:00 Richard Huizar Nunez Meth odist CT HEAD WO CONTRAST 2020-03-12 13:25:51 Ulises Choudhary COVID-19 QUALITATIVE PCR 2020-03-12 11:53:00 Ulises Choudhary UNMONITORED VIDEO-EEG 36 2019-11-15 09:41:23 Bina Bonds HRS 1 MIN-50 HRS CBC WITH PLATELET AND 2019-11-15 04:30:00 Adrian Diana Christian DIFFERENTIAL Ebrahim MANUAL DIFFERENTIAL 2019-11-15 04:30:00 Adrian Diana Christian Ebrahim BASIC METABOLIC PANEL 2019-11-15 04:00:00 Adrian Diana Christian Ebrahim ESTIMATED GFR 2019-11-15 04:00:00 Adrian Diana Meth odist Ebrahim UNMONITORED VIDEO DAILY 2019-11-15 01:22:22 Bina Bonds EEG SETUP 2019-11-14 00:26:44 Bina Bonds EEG (ROUTINE) 2019-11-13 07:46:23 Bina Bonds CBC WITH PLATELET AND 2019-11-13 04:00:00 Caesar Maxwell on Christian DIFFERENTIAL BASIC METABOLIC PANEL 2019-11-13 04:00:00 Caesar Maxwell on Christian TOTAL IRON BINDING 2019-11-13 04:00:00 Caesar Maxwell CAPACITY FERRITIN LEVEL 2019-11-13 04:00:00 Caesar Maxwell Met hodist ESTIMATED GFR 2019-11-13 04:00:00 Caesar Maxwell Met hodist MANUAL DIFFERENTIAL 2019-11-13 04:00:00 Caesar Maxwell MRI BRAIN W WO CONTRAST 2019-11-13 02:16:00 Bina Bonds CONSULT TO OSTOMY CARE 2019-11-12 23:40:27 Caesar Maxwell Christian NURSE ECG 12-LEAD 2019-11-12 21:10:47 Bina Bonds MARCELINO 2019-11-12 19:40:00 Bina Bonds FOLATE LEVEL 2019-11-12 19:40:00 Bina Bonds VITAMIN B12 LEVEL 2019-11-12 19:40:00 Bina Bonds Christian C-REACTIVE PROTEIN 2019-11-12 19:40:00 Bina Bonds on Christian HOMOCYSTINE, PLASMA 2019-11-12 19:40:00 Bina Bonds Christian CORTISOL LEVEL, RANDOM 2019-11-12 19:40:00 Bina Bonds Christian SEDIMENTATION RATE 2019-11-12 19:40:00 Bina Bonds on Christian RHEUMATOID FACTOR 2019-11-12 19:40:00 Bina Bonds Christian THYROID STIMULATING 2019-11-12 19:40:00 Bina Bonds Christian HORMONE T4, FREE 2019-11-12 19:40:00 Bina Bonds Christian SYPHILIS TOTAL ANTIBODY 2019-11-12 19:40:00 Bina Bonds HIV AG/AB COMBINATION 2019-11-12 19:40:00 Bina Bondston Christian VITAMIN D 25 HYDROXY 2019-11-12 19:40:00 Bina Bonds Christian LEVEL CREATINE KINASE, TOTAL 2019-11-12 19:40:00 Shari Bailey on Christian (CPK) [facility] PROLACTIN LEVEL 2019-11-12 19:40:00 Shari Bailey Meth odist Adolfo MARCELINO TITER 2019-11-12 19:40:00 Shari Bailey Meth odist Adolfo CT CERVICAL SPINE WO 2019-11-12 18:12:54 Shari Bailey Christian CONTRAST Adolfo CT MAXILLOFACIAL WO 2019-11-12 18:09:40 Shari Bailey Christian CONTRAST Adolfo CT HEAD WO CONTRAST 2019-11-12 18:09:19 Shari Baliey Christian Adolfo XR CHEST 1 VW PORTABLE 2019-11-12 17:35:36 Shari Bailey on Christian Adolfo HC COMPLETE BLD COUNT 2019-11-12 17:04:00 Shari Bailey Christian W/AUTO DIFF [facility] COMPREHENSIVE METABOLIC 2019-11-12 17:04:00 Shari Bailey Christian PANEL [facility] ALCOHOL LEVEL, BLOOD 2019-11-12 17:04:00 Shari Bailey Nunez Christian Adolfo KEPPRA (LEVETIRACETAM) 2019-11-12 17:04:00 Leo Shari Ladd on Christian LEVEL Adolfo ESTIMATED GFR 2019-11-12 17:04:00 Shari Bailey Meth odist Adolfo URINE CULTURE 2019-11-12 14:44:00 Keanu Flores Meth odist URINALYSIS SCREEN AND 2019-11-12 14:44:00 Keanu Flores Christian MICROSCOPY, WITH REFLEX TO CULTURE HCG QUALITATIVE, URINE 2019-11-12 14:44:00 Keanu Flores on Christian SCREEN URINE DRUGS OF ABUSE 2019-11-12 14:44:00 Keanu Flores Christian SCREEN Plan of Care Planned Activity Planned Date Details Comments Source Future Scheduled 2020-01-14 INFLUENZA VACCINE [place] n Christian Test 00:00:00 [code = INFLUENZA VACCINE] Future Scheduled 2010 Screening for [facility] thodist Test 00:00:00 malignant neoplasm of cervix (procedure) [code = 844319138] Future Scheduled 2005 COVID-19 VACCINE [place] [facility] Christian Test 00:00:00 (#1) [code = COVID-19 VACCINE (#1)] Encounters Start End Encounter Admission Attending Care Care Encounter Source Date/Time Date/Time Type Type Clinicians Facility Department ID 2020-05-30 2020-05-30 [facility] Joann Verdugo [id number] 12:21:08 23:59:00 Encounter Bart Aden [id number] [facility] [id number] 2020-05-30 2020-05-30 Ancillary [id number] 14:15:07 15:15:07 Visit Kristofer Keiko [id number] Therapy [facility] [id number] 2020-05-15 2020-05-15 Outpatient MARILEE FOSTER [facility] [id number] [place] 00:00:00 00:00:[address] 2020-05-02 2020-05-02 Emergency ANTHONY [facility] [id number] [place] 00:00:00 00:00:00 DANIEL [address] 2020-04-26 2020-04-26 Outpatient RICHARD HUIZAR [facility] [id number] [place] 00:00:00 00:00:[address] 2020-04-04 2020-04-07 Inpatient NINFA [facility] [id number] [place] 00:00:00 00:00:00 YAHYA [address] 2020-03-30 2020-03-30 Outpatient RICHARD HUIZAR [facility] [id number] [place] 00:00:00 00:00:[address] 2020-03-27 2020-03-27 Outpatient GAYE [facility] [id number] [place] 00:00:00 00:00:[address] 2020-03-12 2020-03-15 Inpatient RICHARD HUIZAR [facility] [id number] [place] 00:00:00 00:00:[address] 2020-02-16 2020-02-16 Outpatient RICHARD HUIZAR [facility] [id number] [place] 00:00:00 00:00:[address] 2019-11-12 2019-11-15 Inpatient LIANA [facility] [id number] [place] 00:00:00 00:00:00 ADRIAN [address] Results Test Description Test Time Test Comments Results Result Comments Source Urine culture 2020-05-03 19:14:09 Test Item Value Reference Range Interpretation Comme nts Urine culture isolate Mixed prem <=10-3 Specimen InformationSpecimen (test code = 04653-2) col/cc Source : UrineSpecimen Site: Clean catch [place] MethodistCOVID-19 qualitative [id number] 22:57:50 Test Item Value Reference Range Interpretation Comments Interpretation (test Negative results do code = 0297940) not preclude 2019-nCoV infection and should not be used as the sole basis for treatment or other patient management decisions. Negative results must be combined with clinical observations, patient history, and epidemiological information. COVID-19 qualitative Not-Detected Not-Detected PCR result (test code = 70604-4) COVID-19 qualitative See link below for C ase Number: PCR (test code = PDF Lab Report [id number]) [place] MethodistUrinalysis screen and microscopy, with reflex to culture 2020-05-02 17:03:04 Test Item Value Reference Range Interpretation Comments Specimen site (test code = Clean catch 4282523) Color, UA (test code = 5778-6) Yellow Appearance, UA (test code = Clear 5767-9) Specific gravity, UA (test code = 1.035 1.001-1.035 5811-5) pH, UA (test code = 5803-2) 5.0 5.0-8.5 Protein, UA (test code = 38882-5) Negative Negative Glucose, UA (test code = 70966-2) Negative Negative Ketones, UA (test code = 2514-8) Trace Negative A Bilirubin, UA (test code = Negative Negative 5770-3) Blood, UA (test code = 5794-3) Negative Negative Nitrite, UA (test code = 5802-4) Negative Negative Urobilinogen, UA (test code = <2.0 <2.0 14757-8) Leukocyte esterase, UA (test code Small Negative A = 5799-2) Epithelial cells, UA (test code = 6 /HPF 5787-7) WBC, UA (test code = 5821-4) 10 0- 4 /HPF H RBC, UA (test code = 04840-9) 2 0- 5 /HPF Bacteria, UA (test code = Few None seen 18439-0) Yeast, UA (test code = 51777-7) None seen Yeast with pseudohyphae, UA (test None seen code = 23620-8) Lab Interpretation (test code = Abnormal 79384-0) [place] [facility], serum [id number] 16:18:10 Test Item Value Reference Range Interpretation Comments hCG qualitative, Negative Sensitivity of HCG test: serum (test code = 25 mIU/mL 2117-8) [place] [facility] [id number] 16:11:00 Test Item Value Reference Range Interpretation Comments Sodium (test code = 2951-2) 140 135- 148 mEq/L Potassium (test code = 2823-3) 3.7 3.5- 5.0 mEq/L Chloride (test code = 2075-0) 103 98- 112 mEq/L CO2 (test code = 2027-) 25 24- 31 mEq/L Anion gap (test code = 54737-5) 12@ANIO 7- 15 mEq/L BUN (test code = 3094-0) 13 mg/dL 6-20 Creatinine (test code = 2160-0) 0.70 mg/dL 0.5-0.9 Glucose (test code = 2345-7) 93 mg/dL 65-99 Calcium (test code = 41216-7) 9.6 mg/dL 8.3-10.2 Enrique MethodistEstimated [id number] 16:11:00 Test Item Value Reference Range Interpretation Comments Estimated GFR (test >=90 mL/min/1.73 m2 Haider wiggins Units code = 5488) InterpretationG 1 >=90 Normal or highG2 60-89 Mildly czgvzutcmM5x 45-59 Mildly to mode rately zwjdqrspnA8q 30-44 Moderately to severely decreasedG4 15-29 Severely decre asedG5 <15 Kidn ey failureThe eGFR was calculated alyssa fortune the Chronic Kidney Disease Epidemiology Co llaboration (CKD-EPI) equat ion. Interpretation is based on recommendations of the National Kidney Foundation-Kidn ey Disease Outcomes Qualit y Initiative (NKF-KDOQI) pub lished in 2014. N[facility] MethodistCBC with platelet and [id number] 16:06:29 Test Item Value Reference Range Interpretation Comments WBC (test code = 40636-5) 10.69 4.50- 11.00 k/uL RBC (test code = 95352-7) 4.71 m/uL 4.2-5.5 HGB (test code = 718-7) 13.5 g/dL 12-16 HCT (test code = 4544-3) 42.4 % 37-47 MCV (test code = 787-2) 90.0 fL 82-100 MCH (test code = 785-6) 28.7 pg 27-34 MCHC (test code = 786-4) 31.8 g/dL 31-37 RDW - SD (test code = 41.3 fL 37-55 84783-8) MPV (test code = 45115-8) 10.0 fL 8.8-13.2 Platelet count (test code 260 150- 400 k/uL = 85202-1) Nucleated RBC (test code 0.00 /100 WBC = 83131-8) Neutrophils (test code = 65.7 % 39-69 39041-1) Lymphocytes (test code = 24.7 % 25-45 L 95718-1) Monocytes (test code = 7.3 % 0-10 68467-7) Eosinophils (test code = 1.3 % 0-5 45498-7) Basophils (test code = 0.7 % 0-1 13830-6) Immature granulocytes 0.3 % 0-1 "Immat ure (test code = 10577-8) granul ocytes" (promyelocytes, myelocytes, metamyelocytes) Lab Interpretation (test Abnormal code = 60477-2) Nunez MethodistSmear [id number] 16:06:29 Test Item Value Reference Range Interpretation Comments Platelet slide review (test code Sana adequate = 07771-5) Enlarged platelets (test code = Moderate A 64276-0) Lab Interpretation (test code = Abnormal 37863-6) [facility] MethodistCT Head Wo [id number] 15:54:03Hm Interface, Radiology Results - 05/02/2020 3:57 PM CSTEXAMINATION: CT HEAD WO [...] IMPRESSION:1. No CT evidence of acute intracranial abnormality.[id number] Christian Epilepsy/Seizure [id number] 09:01:11EPILEPSY MONITORING UNIT REPORT Patient Name: Heather [...] left frontal central temporal region. ICD-10 Code: I188Hufnpja MethodistEpilepsy/Seizure monitoring 2020-04-23 09:00:05EPILEPSY MONITORING UNIT REPORT [...] left frontal central temporal region. ICD-10 Code: A014Ykfhjap Christian Epilepsy/Seizure jnrvedpjav4521-04-35 08:55:34EPILEPSY MONITORING UNIT REPORT Patient Name: Heather [...] left frontal central temporal region. ICD-10 Code: C628Davdsmx Christian Epilepsy/Seizure [id number] 08:45:34EPILEPSY MONITORING UNIT REPORT Patient Name: Heather [...] left frontal central temporal region. ICD-10 Code: X588Zchzdhk MethodistDouble-stranded DNA (dsDNA) antibodies, [id number] 13:15:26 Test Item Value Reference Range Interpretation Comments DNA Ab screen (test code = 1297) Not Detected Not-Detected Enrique MethodistRibonucleic antibody (WATERPROOFING SUPERVISOR)2020-04-06 18:25:47 Test Item Value Reference Range Interpretation Comments Ribonucleic antibody <0.2 0.0- 0.9 AI (WATERPROOFING SUPERVISOR) (test code = 43941-4) Ribonucleic antibody Negative AI Anti-ri bonucleic (WATERPROOFING SUPERVISOR) interp (test protein ( anti-WATERPROOFING SUPERVISOR) code = 5267) antibodies are typically found in patients with m ixed connective tiss ue disease, but ca n also be seen in christin ents with systemic l upus erythematosus ( SLE) or systematic scle rosis. Enrique CruzistJo-1 [id number] 18:25:46 Test Item Value Reference Range Interpretation Comments Bernarda-1 antibody (test <0.2 0.0- 0.9 AI code = 54936-0) Bernarda-1 antibody interp Negative Anti-Bernarda -1 antibody is (test code = 5263) predomina ntly found in patients with polymyositis, e specially for those with interstitial pu lmonary fibrosis. It ca n also be found in patien ts with dermatomyositis . Enrique CruzistScl-70 [id number] 18:25:46 Test Item Value Reference Range Interpretation Comments Scleroderma SCL-70 Ab <0.2 0.0- 0.9 AI (test code = 31672-7) Scl-70 antibody interp Negative AI Anti- Scl-70 (test code = 5268) (topoisom erase I) antibodies are found in patients with s ystemic sclerosis (SSc or scleroderma), a nd have been reported t o be predictive of d iffuse cutaneous invol vement. Anti-Scl-70 ant ibodies may also be pre sent in patients with s ystemic lupus erythemat osus (SLE). Nunez MethodistSS-A [id number] 18:25:46 Test Item Value Reference Range Interpretation Comments Sjogren's SS-A <0.2 0.0- 0.9 AI antibody (test code = 38484-8) SS-A antibody interp Negative AI SS-A an tibody is (test code = 2235) sensitive for Sjogren's syndrome, but m ay also be positive with s ystemic lupus erythemat osus (SLE), and syst emic sclerosis. [place] MethodistCentromere [id number] 18:25:45 Test Item Value Reference Range Interpretation Comments Centromere antibody <0.2 0.0- 0.9 AI (test code = 8068-9) Centromere antibody Negative AI Anti-sae tromere interp (test code = antibodi es are found 34754-9) in patients wit h systemic sclero sis (SSc or sclerod sb), especially for those with limited cu taneous or CREST syndro me. Anti-centromere antibodies may also be found in patien ts with other rheumatic or connective tiss ue diseases. [place] MethodistSmith [id number] 18:25:45 Test Item Value Reference Range Interpretation Comments Matthew antibody (test <0.2 0.0- 0.9 AI code = 38623-7) Matthew antibody Negative AI Anti-Matthew an tibodies interp (test code = occurs i n 30-35% of 5269) systemic lupus erythematosus ( SLE) cases, but is v gilbert specific for SL E. It may also present in mixed connective-tiss ue disease (MCTD). Nunez MethodistSS-B [id number] 18:25:44 Test Item Value Reference Range Interpretation Comments Sjogren's SS-B 0.6 0.0- 0.9 AI antibody (test code = 3001) SS-B antibody interp Negative AI SS-B/La antibody is seen (test code = 2237) in patien ts with Sjogren syndrome, but m ay also be positive with s ystemic lupus erythemat osus (SLE), and syst emic sclerosis. Nunez MethodistKeppra (Levetiracetam) [id number] 17:50:04 Test Item Value Reference Interpretation Comments Range Levetiracetam 23 ug/mL 12-46 INTERPRETIVE I NFORMATION: (test code = Keppra 4478-4) (Levetiracetam) Therapeutic Range: 12-46 u g/mL Toxic: Not wel l EstablishedPhar macokinetics of levetiracetam a re affected by renal function. Adverse effects may include andi nolence, weakness, heada justus and vomiting.This l evetiracetam (Keppra) immuno assay uses the [employer] reagents, which has known cross -reactivity with the drug brivar acetam (Briviact) and may report inaccurate resu lts. Patients transitioning f rom levetiracetam t o brivaracetam or those who ar e using both medications alejandra uld not monitor drug concentrat ions with the [employer] assay. These patients should be monitored using a validat ed chromatographic methodology that distinguis hes between drugs to determ ine drug concentrations. Performed By: [employer] [address] [place] [address] [id number] Director: MD [facility] brkxeed0915-23-80 17:38:16 Test Item Value Reference Range Interpretation Comments POC glucose (test code = 102 mg/dL 65-99 H Ope rator Name: [id number]) Gerber Coulter ice ID: [id number] Lab Interpretation (test Abnormal code = 02453-4) Nunez NancyistHomocystine, kgohed5963-84-13 18:55:23 Test Item Value Reference Range Interpretation Comments Homocysteine (test 6.7 umol/L 0-15 The risk for coronary code = 37103-9) vascular dis ease increases progressively w ith homocysteine concentration. A 3.4 times greater r isk is associated with a homocysteine concentration o f greater than 15.8 umol/L as carlin red to a concentration below 14.1 umol/L. S pecimen is slightly hem olyzed. Interpret resu lts accordingly. Enrique MethodistPotassium grxsy9275-41-69 18:49:08 Test Item Value Reference Range Interpretation Comments Potassium (test code = 2823-3) 3.7 3.5- 5.0 mEq/L [place] MethodistVitamin D 25 hydroxy ylvvl2346-43-88 15:53:37 Test Item Value Reference Range Interpretation [...] hods. Lab Interpretation Abnormal (test code = 68290-8) Enrique PiedraEC 12 jndr0148-67-59 13:34:29 Test Item Value Reference Range Interpretation Comments Ventricular rate (test 77 code = 253) Atrial rate (test code 77 = 255) TN interval (test code 154 = 266) QRSD [...] are captured. Jojo Cruz MD ICD-10 Code: A190Tejmrfe MethodistSyphilis total dfcayrnr6013-86-52 10:02:20 Test Item Value Reference Range Interpretation Comments Syphilis total Non-reactive Non-reactive No serologica l antibody (test evidence of code = 6194) syphilis infect ion. LUIS MIGUEL (test code = Unable to perform LUIS MIGUEL) testing, specimen is _HEMOLYZED___. Recollect requested for __K__ (tests). __[facility] (name/location) notified by ___JT_ (tech ID) at __ 04/05/2020 07:01 __ (date/time). Credit issued.Unable to perform testing, specimen is _HEMOLYZED___. Recollect requested for _HCYT (tests). __[facility] (name/location) notified by ___JT_ (tech ID) at __ 04/05/2020 09:26 __ (date/time). Credit issued. Enrique MethodistRheumatoid encgcq7542-79-54 09:01:34 Test Item Value Reference Range Interpretation Comments Rheumatoid factor (test <10 0- 13 IU/mL code = 64847-2) LUIS MIGUEL (test code = LUIS MIGUEL) Unable to perform testing, specimen is _HEMOLYZED___. Recollect requested for __K__ (tests). __[facility] (name/location) notified by ___JT_ (tech ID) at __ 04/05/2020 07:01 __ (date/time). Credit issued. Enrique PiedraVitamin B12 lpkaw2106-09-27 06:58:42 Test Item Value Reference Range Interpretation Comments Vitamin B12 (test 739 pg/mL 211-946 Significan t overlap code = 2132-9) exists betwee n normal and deficiency states.However, most patients with deficiencies wi ll have Serum B12 <2 00 pg/mL. Enrique CruzistFolate gzvpo5755-51-45 06:58:42 Test Item Value Reference Range Interpretation Comments Folate (test code = 2284-8) 14.0 ng/mL 4.8-24.2 Enrique PiedraMagnesium tkeoo6579-77-55 06:52:05 Test Item Value Reference Range Interpretation Comments Magnesium (test code = 97259-7) 1.8 mg/dL 1.6-2.6 Enrique PiedraT4, lphh4171-56-04 06:52:05 Test Item Value Reference Range Interpretation Comments T4, free (test code = 3024-7) 1.1 ng/dL 0.9-1.7 Enrique PiedraThyroid stimulating mlgtukr9907-26-33 06:52:05 Test Item Value Reference Range Interpretation Comments TSH (test code = 3016-3) 1.26 0.27- 4.20 uIU/mL Enrique CruzTofgivdhfH64593-61-91 06:52:05 Test Item Value Reference Range Interpretation Comments T3 (test code = 3053-6) 89 ng/dL 80-200 Enrique PiedraC-reactive gkjuwvt7411-37-41 06:52:05 Test Item Value Reference Range Interpretation Comments CRP (test code = 1987-) <0.30 0-0.5 Enrique PiedraHIV Ag/Ab hhkswrzihic8423-07-93 06:48:46 Test Item Value Reference Range Interpretation Comments HIV Ag/Ab combination (test code Non-reactive Non-reactive = 5299) Enrique CruzistSedimentation rgds3836-17-77 22:23:01 Test Item Value Reference Range Interpretation Comments Sedimentation rate (test code = 6 0- 20 mm/hr 36231-2) Enrique Bowman drugs of abuse jkbtka4266-52-94 21:28:59 Test Item Value Reference Interpretation Comments Range Amphetamine screen, Negative urine (test code = 3349-8) Barbiturate screen, Negative urine (test code = 3377-9) Benzodiazepine Positive A screen, urine (test code = 3390-2) Cocaine screen, Negative urine (test code = 3397-7) Methadone Negative metabolite (EDDP), urine (test code = 58006-9) Opiates screen, Negative urine (test code = 3879-4) Oxycodone screen, Negative urine (test code = 92029-0) Phencyclidine Negative screen, urine (test code = 3936-2) Tricyclic screen, Negative urine (test code = 37337-0) Cannabinoid screen, Negative Drug scr een minimum [...] ired. Lab Interpretation Abnormal (test code = 62684-9) Enrique PiedraComprehensive metabolic bgxeb1696-02-92 21:27:39 Test Item Value Reference Range Interpretation Comments Sodium (test code = 138 135- 148 mEq/L 2951-2) Potassium (test code = 3.6 3.5- 5.0 mEq/L 2823-3) Chloride (test code = 105 98- 112 mEq/L 2075-0) CO2 (test code = 2027-9) 22 24- 31 mEq/L L Anion gap (test code = 11@ANIO 7- 15 mEq/L 29847-2) BUN (test code = 3094-0) 7 mg/dL 6-20 Creatinine (test code = 0.46 mg/dL 0.5-0.9 L 2160-0) Glucose (test code = 96 mg/dL 65-99 2345-7) Calcium (test code = 9.2 mg/dL 8.3-10.2 21973-1) Protein (test code = 7.1 g/dL 6.3-8.3 -[place] n 2885-2) 4.6-7.0 g/dL1 week 4.4-7 .6 g/dL7 months-1y ear 5.1-7 .3 g/dL1-2 years 5.6-7 .5 g/dL>3 years 6.0-8 .0 g/cL11-672 6.3-8 .3 g/dL Albumin (test code = 3.8 g/dL 3.5-5 1751-7) A/G ratio (test code = 1.2 0.7-3.8 1759-0) Alkaline phosphatase 64 U/L 35-104 (test code = 6768-6) AST (test code = 1920-8) 20 U/L 10-35 ALT (test code = 1742-6) 14 U/L 5-50 Total bilirubin (test 0.4 mg/dL 0-1.2 code = 1975-2) Lab Interpretation (test Abnormal code = 66761-8) [place] MethodistLactic acid level, SEPSIS - Now and repeat 2x every 3 hours 2020-04-04 21:27:38 Test Item Value Reference Range Interpretation Comments Lactic acid (test code = 11617-5) 1.1 mmol/L 0.5-2.2 [facility] njmtu9120-91-67 21:27:37 Test Item Value Reference Range Interpretation Comments Phosphorus (test code = 2777-1) 3.7 mg/dL 2.4-4.5 [facility] bhqfmlwu8771-44-11 21:21:43 Test Item Value Reference Range Interpretation Comments WBC (test code = 02072-2) 7.66 4.50- 11.00 k/uL RBC (test code = 76725-4) 4.23 m/uL 4.2-5.5 HGB (test code = 718-7) 12.2 g/dL 12-16 HCT (test code = 4544-3) 36.8 % 37-47 L MCV (test code = 787-2) 87.0 fL 82-100 MCH (test code = 785-6) 28.8 pg 27-34 MCHC (test code = 786-4) 33.2 g/dL 31-37 RDW - SD (test code = 88382-4) 40.3 fL 37-55 MPV (test code = 28587-0) 10.1 fL 8.8-13.2 Platelet count (test code = 247 150- 400 k/uL 08994-0) Nucleated RBC (test code = 0.00 /100 WBC 87799-0) Lab Interpretation (test code = Abnormal 79606-1) Nunez MethodistProlactin trzss0273-68-63 21:11:11 Test Item Value Reference Range Interpretation Comments Prolactin (test code = 2842-3) 13 ng/mL 5-23 [place] MethodistCRITICAL ULGF9733-07-50 18:48:10BMax gleason MD 04/20/2020 3:37 PMCritical CarePerformed by: Lila ByersAuthorized by: Max Ron MD Critical care provider statement: Critical care time (minutes): 20 Critical care was necessary to treat or prevent imminent or life- threatening deterioration of the following conditions: ENTRY LEVEL ADMINISTRATIVE ASSISTANT failure or compromise Critical care was [...] for this patient from another provider.: Hawa PiedraPET Brain Metabolic Tsgk7697-00-63 14:42:07Hm Interface, Radiology Results 03/30/2020 2:45 PM CDTPROCEDURE: PET BRAIN METABOLIC [...] interictal study.2.Diffuse cerebellar hypometabolism suggests a pharmacologic effect.[facility]-[id number] MethodistContinuous EEG gwkuqdwmkx8431-68-81 17:34:53CONTINUOUS VIDEO-EEG MONITORING REPORT Patient Name: Heather [...] No seizures occurred. ICD-10 Code: R56.9[place] MethodistANA jhsss6801-64-44 13:12:21 Test Item Value Reference Range Interpretation Comments MARCELINO titer (test code = 50528-3) 1:160 Not-Detected A MARCELINO pattern (test code = 62995-7) Homogeneous Not-Detected A Lab Interpretation (test code = Abnormal 01629-6) Enrique MlhrorhbnTMV8704-88-19 13:08:33 Test Item Value Reference Range Interpretation Comments MARCELINO screen (test code Positive Negative A Test p erformed using = 550) [employer] DAPI MARCELINO kit (Indirect Immunofluoresce nce Assay) for Anti -Nuclear Antibody on [employer]-Lyser 16 0 Analyzer. Lab Interpretation Abnormal (test code = 57530-0) Enrique MethodistManual drgaypkelryb6623-90-41 08:57:11 Test Item Value Reference Range Interpretation Comments Manual differential (test code = PERFORMED 29598-4) Neutrophils (test code = 51.0 % 39-69 81566-7) Lymphocytes (test code = 34.0 % 25-45 95260-9) Monocytes (test code = 91366-7) 13.0 % 0-10 H Eosinophils (test code = 2.0 % 0-5 77981-7) Basophils (test code = 11930-0) 0.0 % 0-1 Metamyelocytes (test code = 0 % 740-1) Promyelocytes (test code = 0 % 783-1) Platelet slide review (test code Sana adequate = 16867-6) Anisocytosis (test code = 702-1) Moderate Ovalocytes (test code = 774-0) Moderate Enlarged platelets (test code = Moderate A 82749-3) Lab Interpretation (test code = Abnormal 67669-8) [place] MethodistContinuous EEG oilfzfsfoc2842-73-68 07:42:19CONTINUOUS VIDEO- EEG MONITORING REPORT Patient Name: [...] independently. No seizures occurred. ICD-10 Code: R56.9[place] [facility] Continuous EEG zjzyzkjjmu1927-60-44 07:19:24 CONTINUOUS VIDEO-EEG MONITORING REPORT Patient Name: Heather Hope Date of : 1990 Gender: female Initial Study Start Date: 11/13/2019Initial Study Start Time: 5: Current StudyStart Date: 11/13/2019Current Study Start Time: 5: Current Study End Date: 11/13/2019Current Study End [...] regions independently. No seizures occurred. ICD-10 Code: R56.9[facility] MethodistEEG (routine) - Baseline AGC1877-31-19 06:43:32EEG RECORDING AWAKE & ASLEEP - Baseline [...] with the above findings. Toya Rojo MethodistFerritin ufmce5004-37-03 07:54:01 Test Item Value Reference Range Interpretation Comments Ferritin level (test code = 2276-4) <13 13-150 A Lab Interpretation (test code = Abnormal 46223-7) Nunez MethodistTotal iron binding eyooywit4825-88-30 07:50:12 Test Item Value Reference Range Interpretation Comments Iron level (test code = 2498-4) 20 ug/dL 37-145 L Iron binding capacity (test code = 335 ug/dL 141-444 9269-7) % Saturation (test code = 2502-3) 6.0 % 15-38 L Lab Interpretation (test code = Abnormal 91958-7) Enrique CruzistCortisol level, gztbdi1223-19-40 20:48:37 Test Item Value Reference Range Interpretation Comments Cortisol, random 2 ug/dL Reference R anges are not (test code = 2143-6) establi shed for non-timed Cortisol levels .Reference Range for Timed Cortisol: 6 - 10 AM 6 - 18 ug/dl 4 - 8 PM 3 - 11 ug/ dl [place] Methodcib[facility] hospitalCreatine kinase, total (CPK)2019-11-12 20:42:35 Test Item Value Reference Range Interpretation Comments Creatine kinase (test code = 2157-6) 56 U/L 26-192 [place] MethodistCT Cervical Spine Wo Xfjjkotp4430-40-30 18:17:20Hm Interface, Radiology Results 11/12/2019 6:20 PM [...] fracture or subluxation identified in the cervical spine.[facility]-[id number] Methodcibola general hospitalCT Maxillofacial Wo Wtoeyeoj7481-40-93 18:15:46Hm Interface, Radiology Results 11/12/2019 6:18 PM [...] soft tissues are unremarkable.The paranasal sinuses are clear.[facility]-[id number] Christian Alcohol level, axrkx5486-09-37 18:06:03 Test Item Value Reference Range Interpretation Comments Alcohol percent None Detected % Normal (test code = None Detec tedLegal 5643-2) Intoxication in [place] 80 mg/dL (0.08% ) - Whole BloodToxi c Concentration 200 mg/dL (0.2%)Potential ly Fatal 350 - 500 mg/dL (0.35 - 0 .5%) [facility] 1 Vw Dbbljjoz0669-65-89 17:37:03Hm Interface, Radiology Results 11/12/2019 5:40 PM CDTEXAMINATION: XR CHEST 1 VW PORTABLECLINICAL HISTORY: SOBXR CHEST 1 VW PORTABLE images are submittedCOMPARISON: NONEFINDINGS:The cardiac silhouette is normal in size. The pulmonary vasculature is within normal limits. The lung zones have no focal area of consolidation. There is no pleural effusion or pneumothorax.IMPRESSION:1. Thereis no acute cardiopulmonary disease.STJO-7XI8810HFICqfwhfc MethodisthCG qualitative, urine baeqlk3900-85-67 15:26:18 Test Item Value Reference Range Interpretation Comments hCG qualitative, Negative Sensitivity of HCG test: urine (test code = 25 mIU/mL 2106-3) [place] MethodistRPR Deotrkddplb2603-44-34 16:47:08 Test Item Value Reference Range Interpretation [...] = 06-14-2020 N Expiration Dt) Thyroid Stimulating Xirwfzf5629-11-63 06:31:44 Test Item Value Reference Range Interpretation Comments TSH (test code = TSH) 3.830 mIU/mL 0.270-4.200 Lipid Qnpdo0838-37-02 06:24:40 Test Item Value Reference Range Interpretation Comments Cholesterol Total 152 mg/dL 0-200 RISK OF HE ART (test code = DISEASEPublishe d by Cholesterol Total) [place] [employer] [employer] Marcelino lyte Optimal Borderl ine [...] LDL/HDL Ratio=L DL Calc/HDL Chol Urine Drug Xvwmvt0701-85-27 21:53:06 Test Item Value Reference Range Interpretation [...] if desired . Urinalysis with Culture, if dyysayvkv9883-28-51 21:40:53 Test Item Value Reference Range Interpretation [...] Indicated Not Indicated Micro Ind?) Comprehensive Metabolic Tguap0263-67-38 21:34:15 Test Item Value Reference Range Interpretation [...] = A/G 1.6 ratio N Ratio) Alcohol Aczxf2395-56-13 21:34:15 Test Item Value Reference Range Interpretation Comments Ethanol Level (test <0.00 g/dL 0.00-0.01 Intoxica vandana 0.080 g/dL code = Ethanol or more Level) Ethanol Inst (test <0 N code = Ethanol Inst) Comprehensive Metabolic Oqgah3812-27-25 21:34:15 Test Item Value Reference Range Interpretation [...] National Kidney Foundation, http://nkdep.ni h.gov Comprehensive Metabolic Zednd6416-26-23 21:34:15 Test Item Value Reference Range Interpretation [...] ag e have not been validated by [facility] MDRD study and should be interpreted [...] ag e have not been validated by [facility] MDRD study and should be interpreted wit h caution. eGFR R esult Interpretation: eGFR > or = 60 is in the Normal RangeeGF R < 60 may mean kid shannan diseaseeGFR < 1 5 may mean kidney failure Rang es recommended by the National Kidney Foundation, http://nkdep.ni h.gov Complete Blood Count with Ftndqcyxjhny6558-36-43 21:15:24 Test Item Value Reference Range Interpretation [...] code = IPF) 0 % N Automated Byfyjpacotzz6308-98-35 21:15:24 Test Item Value Reference Range Interpretation Comments Neutro Auto (test code = Neutro 54.3 % 36.0-70.0 Auto) Lymph Auto (test code = Lymph Auto) 32.3 % 12.0-44.0 Craig Auto (test code = Craig Auto) 11.1 % 0.0-11.0 H Eos, Auto (test code = Eos, Auto) 1.3 % 0.0-7.0 Basophil Auto (test code = Basophil 0.7 % 0.0-2.0 Auto) Neutro Absolute (test code = Neutro 6.2 x10 1.6-7.4 Absolute) Lymph Absolute (test code = Lymph 3.71 x10 .50-4.60 Absolute) Craig Absolute (test code = Craig 1.28 x10 .00-1.20 H Absolute) Eos Absolute (test code = Eos 0.15 x10 0.00-0.74 Absolute) Baso Absolute (test code = Baso 0.08 x10 0.00-0.21 Absolute) IG Oloih7438-21-79 21:15:24 Test Item Value Reference Range Interpretation Comments IG (test code = IG) 0.3 % 0.0-5.0 IG Abs (test code = IG Abs) 0 x10 N HCG Qualitative Trbdf1138-88-30 20:45:17 Test Item Value Reference Range Interpretation [...] 72 hours. Lot # (test code = [id number] N Lot #) Expiration Dt (test 2020-12-12 N code = Expiration Dt) Neg Control (test Negative code = Neg Control) Pos Control (test Positive code = Pos Control) Internal QC (test Acceptable code = Internal QC) RPR Tgduhdptajh2415-54-35 12:07:58 Test Item Value Reference Range Interpretation [...] = 04-14-2020 N Expiration Dt) Thyroid Stimulating Yeoyofc0862-15-02 07:59:52 Test Item Value Reference Range Interpretation Comments TSH (test code = TSH) 0.717 mIU/mL 0.270-4.200 Lipid Rdjnu5403-66-43 07:52:46 Test Item Value Reference Range Interpretation Comments Cholesterol Total 141 mg/dL 0-200 RISK OF HE ART (test code = DISEASEPublishe d by Cholesterol Total) [place] [employer] Marcelino lyte Optimal Borderl ine [...] LDL/HDL Ratio=L DL Calc/HDL Chol Urine Drug Mwunea1287-96-06 15:27:40 Test Item Value Reference Range Interpretation [...] matory test if desired . Comprehensive Metabolic Ccfkf7419-49-25 15:15:20 Test Item Value Reference Range Interpretation [...] A/G 1.9 ratio N Ratio) Comprehensive Metabolic Lsxrc6525-91-72 15:15:20 Test Item Value Reference Range Interpretation [...] the National Kidney Foundation, http://nkdep.ni h.gov Alcohol Aapxl1716-80-45 15:15:20 Test Item Value Reference Range Interpretation Comments Ethanol Level (test <0.00 g/dL 0.00-0.01 Intoxica vandana 0.080 g/dL code = Ethanol or more Level) Ethanol Inst (test <0 N code = Ethanol Inst) Comprehensive Metabolic Rdaxo7764-94-28 15:15:20 Test Item Value Reference Range Interpretation [...] not provided, and t he patient is -Aynira n, multiply by 1.2 12. If sex [...] the National Kidney Foundation, http://nkdep.ni h.gov Urinalysis Lfbohoysshv7264-81-04 15:11:20 Test Item Value Reference Range Interpretation Comments UA WBC (test code = UA WBC) 6-10 0-5 A UA RBC (test code = UA RBC) 0-5 0-5 UA Bacteria (test code = UA Moderate A Bacteria) UA Squam Epithelial (test code = UA TNTC A Squam Epithelial) UA Mucous (test code = UA Mucous) Few A Urinalysis with Microscopic if swsumchns2513-36-45 14:42:58 Test Item Value Reference Range Interpretation [...] GL_SJM_UA_MICRO _IN D Complete Blood Count with Vymmlydsxqzo6649-76-93 14:37:26 Test Item Value Reference Range Interpretation [...] code = IPF) 0 % N Automated Vqiusfrkqfkw4868-98-36 14:37:26 Test Item Value Reference Range Interpretation Comments Neutro Auto (test code = Neutro 65.8 % 36.0-70.0 Auto) Lymph Auto (test code = Lymph Auto) 25.5 % 12.0-44.0 Craig Auto (test code = Craig Auto) 7.3 % 0.0-11.0 Eos, Auto (test code = Eos, Auto) 0.7 % 0.0-7.0 Basophil Auto (test code = Basophil 0.5 % 0.0-2.0 Auto) Neutro Absolute (test code = Neutro 6.0 x10 1.6-7.4 Absolute) Lymph Absolute (test code = Lymph 2.34 x10 .50-4.60 Absolute) Craig Absolute (test code = Craig .67 x10 .00-1.20 Absolute) Eos Absolute (test code = Eos 0.06 x10 0.00-0.74 Absolute) Baso Absolute (test code = Baso 0.05 x10 0.00-0.21 Absolute) IG Feaft3454-87-70 14:37:26 Test Item Value Reference Range Interpretation Comments IG (test code = IG) 0.2 % 0.0-5.0 IG Abs (test code = IG Abs) 0 x10 N HCG Qualitative Tbeff7719-57-07 14:34:08 Test Item Value Reference Range Interpretation [...] 72 hours. Lot # (test code = [id number] N Lot #) Expiration Dt (test 2020-03-14 N code = Expiration Dt) Neg Control (test Negative code = Neg Control) Pos Control (test Positive code = Pos Control) Internal QC (test Acceptable code = Internal QC) DRUGS OF ABUSE SCREEN [id number] 17:11:00 Test Item Value Reference Range Interpretation [...] = [place]) concentrati on: 300 ng/mL URINALYSIS [id number] 17:08:00 Test Item Value Reference Range Interpretation [...] (test code = MOD NONE BACU) URINALYSIS [id number] 17:00:00 Test Item Value Reference Range Interpretation [...] (test code = NONE BACU) HCG SERUM [id number] 16:52:00 Test Item Value Reference Range Interpretation Comments HCG SERUM QUAL (test code = HCGQL) NEGATIVE NEGATIVE - CT HEAD/BRAIN W/O [id number] 16:51:00 FAX: Theresa Fields MD [place]: St: REG Name: HEATHER HOPE [facility] : 1990 Age/S: 28/F [address] [facility] Unit: [id number] Loc: [place], [place]: [place] [id number] Acct: [id number] Dis Date: Status: REG ER PHONE #: [phone] Exam Date: 02/23/2019 1642 FAX #: [phone] Reason: SEIZURE EXAMS: CPT CODE: [id number] CT HEAD/BRAIN W/O CONT 74037 Dictation location: U19. CT HEAD WITHOUT CONTRAST. [...] MD Technologist: HEATHER DICKSON Trnscrd Dt/Tm: 02/23/2019 (6671) [email or web address] Orig Print D/T: S: 02/23/2019 (4834 PAGE 1 Signed ReportBASIC METABOLIC [id number] 16:31:00 Test Item Value Reference Range Interpretation [...] CA) 8.8 mg/dl 8.0-10.5 N BASIC METABOLIC [id number] 16:26:00 Test Item Value Reference Range Interpretation [...] code = CA) mg/dl 8.0-10.5 CBC W/AUTO [id number] 16:15:00 Test Item Value Reference Range Interpretation [...] 3-60 N code = VLDL) RAPID PLASMA [id number] 10:31:00 Test Item Value Reference Range Interpretation Comments RAPID PLASMA REAGIN (test code = Nonreactive Nonreactive RPR) GLYCOSYLATED HEMOGLOBIN (HA1C)2018-12-07 10:05:00 Test Item Value Reference Range Interpretation Comments GLYCOSYLATED HEMOGLOBIN (HA1C) 5.8 % TOT HB 4.5-6.2 N (test code = GLYHGB) [id number] 15:31:00 Test Item Value Reference Range Interpretation Comments ACETAMINOPHEN (test < 1 MCG/ML 10-30 L Acetamin ophen is code = ACET) possibly toxic at levels of: 1. m ore than 150 MCG/ML 4 hours post kaylin stion. 2. more than 5 0 MCG/ML 12 hours post ingestion. [id number] 15:31:00 Test Item Value Reference Range Interpretation Comments SALICYLATE (test code = < 3 MG/DL 0-20 N Refe rence Range: BOSSMAN) Analgesic...... ...... ...... < 10 mg /dl Therapeutic.... ...... ...... 15-20 mg /dl Mild Toxicity....... ...... . > 30 mg/dl Severe Toxicity....... ..... > 60 mg/dl UA RFLX [id number] 14:18:00 Test Item Value Reference Range Interpretation [...] Clean Catch (test code = UASPEC) UA [id number] 14:18:00 Test Item Value Reference Range Interpretation Comments UA WBC (test code = WBCU) < 10 #/hpf <10 UA RBC (test code = RBCU) 0-2 #/hpf NONE SEEN A UA BACTERIA (test code = BACU) RARE #/hpf NONE SEEN UA SQUAMOUS CELLS (test code = 0 - 20 #/lpf <100 SQU) UA MUCUS (test code = MUCU) 1+ #/lpf NONE SEEN BASIC METABOLIC [id number] 14:16:00 Test Item Value Reference Range Interpretation [...] 9.4 MG/DL 8.7-10.5 N CA) HEPATIC FUNCTION [id number] 14:16:00 Test Item Value Reference Range Interpretation [...] 50-136 N TOTAL (test code = ALKP) [id number] 14:16:00 Test Item Value Reference Range Interpretation Comments CK (test code = CKT) 87 Units/L 26-192 N [id number] 14:16:00 Test Item Value Reference Range Interpretation Comments ALCOHOL (test code = < 3 MG/DL 0-10 N 0 - 10: Should be ALC) interpreted as NEGATIVE. 11 - 50: None to mild euphoria. 51 - 100: Mild influence on vision and dark adapta tion. > 80: Legal intoxication; D epression of ENTRY LEVEL ADMINISTRATIVE ASSISTANT; Increasing degr ee of poisoning. > 400: Fatalities repo rted. Results are for medical purposes only a nd not forlegal or emp loyment evaluative purp oses. BASIC METABOLIC [id number] 14:09:00 Test Item Value Reference Range Interpretation [...] 9.4 MG/DL 8.7-10.5 N CA) HEPATIC FUNCTION [id number] 14:09:00 Test Item Value Reference Range Interpretation [...] TOTAL (test Units/L 50-136 code = ALKP) [id number] 14:09:00 Test Item Value Reference Range Interpretation Comments CK (test code = CKT) Units/L 26-192 [id number] 14:09:00 Test Item Value Reference Range Interpretation Comments ALCOHOL (test code = ALC) MG/DL 0-10 LACTIC ACID [id number] 13:50:00 Test Item Value Reference Range Interpretation Comments LACTIC ACID POC 0.97 MMOL/L 0.90-1.70 N Performed by certified (test code = LACTP) turbo operator at [facility] [id number] 13:48:00 Test Item Value Reference Range Interpretation Comments GLUBED (test code = 88 MG/DL 65-99 N Performe d by certified GLUBED) turbo operator at [facility] DRUG OF ABUSE SCREEN [id number] 13:43:00 Test Item Value Reference Interpretation Comments [...] by layton rader methods (i.e., GC/MS) at [facility]. Results of scre en may not be usedin crimi nal justice, job performance or professionalcre dential review, or infa nt custody issues. Negativ e [place] Level ng/ml ------- ----- Cocaine 300 Methamp hetamine (Ecstacy) 500 Cannabinoids (THC) 50 Amphetamine 1000 Barbiturate s 200 Benzodia zepines 200 Opiat es 300 Ph encyclidine (PCP) 25 UR HCG [id number] 13:39:00 Test Item Value Reference Range Interpretation [...] using aquantitative h CG assay. UA RFLX [id number] 13:38:00 Test Item Value Reference Range Interpretation [...] Clean Catch (test code = UASPEC) UA [id number] 13:38:00 Test Item Value Reference Range Interpretation Comments UA WBC (test code = WBCU) #/hpf <10 UA RBC (test code = RBCU) #/hpf NONE SEEN UA SQUAMOUS CELLS (test code = SQU) #/lpf <100 UA RFLX [id number] 13:38:00 Test Item Value Reference Range Interpretation [...] Clean Catch (test code = UASPEC) UA [id number] 13:38:00 Test Item Value Reference Range Interpretation Comments UA WBC (test code = WBCU) #/hpf <10 UA RBC (test code = RBCU) #/hpf NONE SEEN UA SQUAMOUS CELLS (test code = SQU) #/lpf <100 CBC W/AUTO [id number] 13:26:00 Test Item Value Reference Range Interpretation [...] = BA#) 0.05 x10 3/uL 0.0-0.2 N [id number] 19:07:00 Test Item Value Reference Interpretation Comments Range LEVETIRACETAM 28.7 ug/mL 10.0-40.0 This test was developed and (test code

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
[2020-06-05] MEDS ORDERED: NA CHLORIDE 0.9% 1,000 ML ONE ×2 (14:52→17:57)
[2020-06-05 14:57] LABS: Absolute Lymphocytes (CBC) 2.2 K/uL (0.7-4.9); Basophils % 0.6 % (0-1.3); Hematocrit 34.1 % (36.0-45.0); Lymphocytes % 32.2 % (15.3-44.8); RBC Red Blood Cell Count 4.01 M/uL (3.86-4.86)
[2020-06-05 15:01] LABS: Protime INR 1.02
[2020-06-05 15:16] LABS: ALT/SGPT 13 U/L (12-78); AST/SGOT 12 U/L (15-37); Albumin 3.9 g/dL (3.4-5.0); Alkaline Phosphatase 79 U/L (45-117); BUN Blood Urea Nitrogen 8 mg/dL (7-18); Bicarbonate 27 mmol/L (21-32); Bilirubin Direct < 0.1 mg/dL (0-0.2); Bilirubin Total 0.2 mg/dL (0.2-1.0); Glucose Level 91 mg/dL (74-106); Potassium 3.6 mmol/L (3.5-5.1); Protein, Total 7.5 g/dL (6.4-8.2); Sodium Level 139 mmol/L (136-145)
[2020-06-05 16:08] LABS: Barbiturates NEGATIVE (NEGATIVE); Benzodiazepines NEGATIVE (NEGATIVE); Cocaine NEGATIVE (NEGATIVE); METHAMPHETAM NEGATIVE (NEGATIVE); Methadone NEGATIVE (NEGATIVE); Opiates NEGATIVE (NEGATIVE); Phencyclidine NEGATIVE (NEGATIVE); THC Cannibis NEGATIVE (NEGATIVE)
[2020-06-05 16:15] LABS: Urine Blood NEGATIVE (NEG); Urine Glucose NEGATIVE (NEG); Urine Protein NEGATIVE (NEG); Urine Specific Gravity 1.015 (1.005-1.030)
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
--- NOTE | 2020-06-05 20:10 | EDPHYS ---
Physician Documentation [facility] Name: Heather Hope Age: 29 yrs Sex: Female : 1990 Arrival Date: 06/05/2020 Time: 13:42 Bed 14 Private MD: ED Physician Johnathan Sanchez HPI: 06/05 14:59 This 29 yrs old Female presents to ER via EMS with complaints of Possible kb Overdose, Suicidal Ideation. 14:59 The patient presents to the emergency department with a possible overdose, pt drowsy kb and parents concerned that she took too many medications, pt denies overdose. Context: Method: the patient has a confirmed or suspected ingestion, Time: the patient's OD/poisoning occurred at an unknown time, Extent: the OD/poisoning occurred at at home, Psychiatric history: the patient has a known psychiatric disorder, depression. Associated signs and symptoms: Pertinent positives: drowsiness. Severity of symptoms: At their worst the symptoms were moderate in the emergency department the symptoms are unchanged. The patient has not experienced similar symptoms in the past. It is unknown whether or not the patient has recently seen a physician. PD reports 911 was called by pt's parents because they were concerned that she took too many of her medications causing her to be drowsy. Pt states she is just tired and denies overdose. Pt denies homicidal or suicidal ideations. . 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 - Social history:: Smoking status: . ROS: 15:02 Constitutional: Negative for fever, chills, and weight loss, Eyes: Negative for injury, kb pain, redness, and discharge, Cardiovascular: Negative for chest pain, palpitations, and edema, Respiratory: Negative for shortness of breath, cough, wheezing, and pleuritic chest pain, Abdomen/GI: Negative for abdominal pain, nausea, vomiting, diarrhea, and constipation, MS/Extremity: Negative for injury and deformity, Skin: Negative for injury, rash, and discoloration, Neuro: Negative for headache, weakness, numbness, tingling, and seizure. Exam: 14:37 ECG was reviewed by the Attending Physician. kb 15:02 Head/Face: Normocephalic, atraumatic. Eyes: Pupils equal round and reactive to light, kb extra-ocular motions intact. Lids and lashes normal. Conjunctiva and sclera are non-icteric and not injected. Cornea within normal limits. Periorbital areas with no swelling, redness, or edema. Chest/axilla: Normal chest wall appearance and motion. Nontender with no deformity. No lesions are appreciated. Cardiovascular: Regular rate and rhythm with a normal S1 and S2. No gallops, murmurs, or rubs. Normal PMI, no JVD. No pulse deficits. Respiratory: Lungs have equal breath sounds bilaterally, clear to auscultation and percussion. No rales, rhonchi or wheezes noted. No increased work of breathing, no retractions or nasal flaring. Abdomen/GI: Soft, non-tender, with normal bowel sounds. No distension or tympany. No guarding or rebound. No evidence of tenderness throughout. Skin: Warm, dry with normal turgor. Normal color with no rashes, no lesions, and no evidence of cellulitis. MS/ Extremity: Pulses equal, no cyanosis. Neurovascular intact. Full, normal range of motion. Neuro: Awake and alert, GCS 15, oriented to person, place, time, and situation. Cranial nerves II-XII grossly intact. Motor strength 5/5 in all extremities. Sensory grossly intact. Cerebellar exam normal. Normal gait. 15:02 Constitutional: The patient appears alert, awake, drowsy Vital Signs: 13:43 BP 137 / 86; Pulse 101; Resp 17; Temp 98.4(O); Pulse Ox 100% on R/A; Weight 76.66 kg tw2 (R); Height 5 ft. 3 in. (160.02 cm); 14:34 BP 118 / 87; Pulse 100; Resp 16; Pulse Ox 96% on R/A; tw2 15:26 BP 112 / 82; Pulse 100; Resp 17; Pulse Ox 96% on R/A; tw2 16:30 BP 109 / 71; Pulse 94; Resp 16; Pulse Ox 98% on R/A; tw2 17:10 BP 89 / 59 Supine; Pulse 97; Resp 16; Pulse Ox 97% on R/A; tw2 18:12 BP 98 / 61; Pulse 92; Resp 17; Pulse Ox 97% on R/A; tw2 13:43 Body Mass Index 29.94 (76.66 kg, 160.02 cm) tw2 MDM: 13:53 Patient medically screened. kb 14:59 Data reviewed: vital signs, nurses notes. Data interpreted: Pulse oximetry: on room air kb is 96 %. Interpretation: normal. 18:12 ED course: Pt awake, alert and eating. Pt still denies overdose and suicidal ideations. kb . 18:40 ED course: Spoke to pt's father. States pt's phenytoin sodium was missing approx 50 kb tabs. States he believes she overdosed on those. Father reports he believes pt is a danger to herself and possibly others. Father states he has pt on video saying she is going to kill herself. PT's parents were recently granted custody of her 2 year old which seems to have triggered the suicidal thoughts and attempts.. 19:01 ED course: Mental Health officer called. kb 19:07 ED course: I spoke to pt about the new information that I was told. Pt states she was kb suicidal prior to going to an inpatient mental facility this month. States she has been back at home since last Thursday. States they have put her on different medications that cause her to be very drowsy. Pt states she did not take more medication than is prescribed to her. States the medication that her father is talking about is dilantin with she takes 3 pills twice per day. States she is not suicidal, does not want to harm herself and would never hurt anyone else. [facility] called for screening. 19:56 Counseling: I had a detailed discussion with the patient and/or guardian regarding: the historical points, exam findings, and any diagnostic results supporting the discharge/admit diagnosis, lab results, radiology results, the need for outpatient follow up, a psychiatrist, to return to the emergency department if symptoms worsen or persist or if there are any questions or concerns that arise at home. 19:57 ED course: [facility] screener recommends outpatient treatment. . kb 06/05 13:54 Order name: Acetaminophen; Complete Time: 15:47 kb 06/05 13:54 Order name: Basic Metabolic Panel; Complete Time: 15:47 kb 06/05 13:54 Order name: CBC with Diff; Complete Time: 15:08 kb 06/05 13:54 Order name: ETOH Level; Complete Time: 15:47 kb 06/05 13:54 Order name: Hepatic Function; Complete Time: 15:47 kb 06/05 13:54 Order name: PT-INR; Complete Time: 15:08 kb 06/05 13:54 Order name: Ptt, Activated; Complete Time: 15:08 kb 06/05 13:54 Order name: Salicylate; Complete Time: 15:47 kb 06/05 13:54 Order name: Urine Drug Screen; Complete Time: 16:16 kb 06/05 13:54 Order name: EKG; Complete Time: 13:55 kb 06/05 15:48 Order name: Urine Dipstick--Ancillary (enter results); Complete Time: 16:16 bd 06/05 15:48 Order name: Urine --Ancillary (enter results); Complete Time: 16:16 bd 06/05 13:54 Order name: Urine Test (obtain specimen); Complete Time: 15:44 kb 06/05 13:54 Order name: EKG - Nurse/Tech; Complete Time: 14:35 kb 06/05 13:54 Order name: IV Saline Lock; Complete Time: 15:45 kb 06/05 13:54 Order name: Labs collected and sent; Complete Time: 15:45 kb 06/05 13:54 Order name: Urine Dipstick-Ancillary (obtain specimen); Complete Time: 15:45 kb EC:37 Rate is 101 beats/min. Rhythm is regular. QRS [place] is Normal. WA interval is normal at kb 156 msec. QRS interval is normal at 82 msec. QT interval is normal at 322 msec. Administered Medications: 14:50 Drug: NS 0.9% 1000 ml Route: IV; Rate: 1000 ml; Site: right antecubital; tw2 19:00 Follow up: Response: No adverse reaction; IV Status: Completed infusion; IV Intake: tw2 1000ml 17:48 Drug: NS 0.9% 1000 ml Route: IV; Rate: 1000 ml; Site: right antecubital; tw2 Disposition: 06/06 06:27 Co-signature as Attending Physician, Johnathan Sanchez MD I agree with the assessment and kdr plan of care. Disposition: 06/05/20 20:08 Discharged to Home. Impression: Other fatigue - due to medication change. - Condition is Stable. - Discharge Instructions: Fatigue. - Medication Reconciliation Form, Thank You Letter, Antibiotic Education, Prescription Opioid Use form. - Follow up: Emergency Department; When: As needed; Reason: Worsening of condition. Follow up: Private Physician; When: 2 - 3 days; Reason: Recheck today's complaints, Continuance of care, Re-evaluation by your physician. Signatures: Dispatcher [employer] EDMS Opal Gresham, LAW FIRM PARTNER-C LAW FIRM PARTNER-Johnathan Ngo MD MD [facility] Lolita Peña RN RN tw2 Ro Lo RN RN ll2 Corrections: (The following items were deleted from the chart) 06/05 15:03 15:02 Constitutional: This is a well developed, well nourished patient who is awake, kb alert, and in no acute distress. Head/Face: Normocephalic, atraumatic. Eyes: Pupils equal round and reactive to light, extra-ocular motions intact. Lids and lashes normal. Conjunctiva and sclera are non-icteric and not injected. Cornea within normal limits. Periorbital areas with no swelling, redness, or edema. Chest/axilla: Normal chest wall appearance and motion. Nontender with no deformity. No lesions are appreciated. Cardiovascular: Regular rate and rhythm with a normal S1 and S2. No gallops, murmurs, or rubs. Normal PMI, no JVD. No pulse deficits. Respiratory: Lungs have equal breath sounds bilaterally, clear to auscultation and percussion. No rales, rhonchi or wheezes noted. No increased work of breathing, no retractions or nasal flaring. Abdomen/GI: Soft, non-tender, with normal bowel sounds. No distension or tympany. No guarding or rebound. No evidence of tenderness throughout. Skin: Warm, dry with normal turgor. Normal color with no rashes, no lesions, and no evidence of cellulitis. MS/ Extremity: Pulses equal, no cyanosis. Neurovascular intact. Full, normal range of motion. Neuro: Awake and alert, GCS 15, oriented to person, place, time, and situation. Cranial nerves II-XII grossly intact. Motor strength 5/5 in all extremities. Sensory grossly intact. Cerebellar exam normal. Normal gait. kb 18:46 18:12 Counseling: I had a detailed discussion with the patient and/or guardian sonido regarding: the historical points, exam findings, and any diagnostic results supporting the discharge/admit diagnosis, lab results, the need for outpatient follow up, a family practitioner, to return to the emergency department if symptoms worsen or persist or if there are any questions or concerns that arise at home, kb 20:57 20:08 06/05/2020 20:08 Discharged to Home. Impression: Other fatigue - due to ll2 medication change. Condition is Stable. Forms are Medication Reconciliation Form, Thank You Letter, Antibiotic Education, Prescription Opioid Use. Follow up: Emergency Department; When: As needed; Reason: Worsening of condition. Follow up: Private Physician; When: 2 - 3 days; Reason: Recheck today's complaints, Continuance of care, Re-evaluation by your physician. kb
[2020-06-06 12:01] VITALS: TEMP 98.4
[2020-06-06 12:06] VITALS: O2SAT 97
[2020-06-06 12:07] VITALS: BP 98/61
== END 2020-06-05 20:57 | disposition home or self-care (01) ==
LOC: ER 13:41
DX: R53.83 Other fatigue (principal); F32.9 Major depressive disorder, single episode, unspecified
CPT/HCPCS: 96361; 93005; 85025; 80048; 36415; 80320; 80329 ×2; 81025; 85610; 80076; 80307 ×8; 85730; 81003; 96360; 99284; J7030 ×2

== ENCOUNTER 2020-06-11 03:26 | Observation (INO) | payer OTHER ==
--- OUTSIDE RECORDS SUMMARY | 2020-06-11 03:30 | XMS REPORT | Clinical Summary ---
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 Last Filed Vital Signs Vital Sign Reading Time Taken Comments Blood Pressure 127/74 05/02/2020 5:45 PM [employer] Pulse 82 05/02/2020 5:45 PM [employer] Temperature 36.9 C (98.5 F) 05/02/2020 2:17 PM [employer] Respiratory Rate 14 05/02/2020 5:45 PM [employer] Oxygen Saturation 100% 05/02/2020 5:45 PM [employer] Inhaled Oxygen Concentration - - Weight 78 kg (172 lb) 05/02/2020 2:28 PM [employer] Height 160 cm (5' 3") 05/02/2020 2:28 PM [employer] Body Mass Index 30.47 05/02/2020 2:28 PM [employer] Plan of Treatment Date Type Specialty Care Team Description 07/02/2020 Hospital Encounter General Surgery Griffin Foster MD [address] [facility] [address] [place], [place] [address] [phone] 07/02/2020 Surgery General Surgery Griffin Foster, INSERTION OF DBS FOR EPILEPSY [address] [facility] [address] [place], [place] [address] [phone] Health Maintenance Due Date Last Done Comments COVID-19 VACCINE (#1) 2005 CERVICAL CANCER SCREENING 2010 INFLUENZA VACCINE 01/14/2020 Procedures Procedure Name Priority Date/Time Associated Comments Diagnosis COVID-19 QUALITATIVE STAT 05/02/2020 4:10 Res ults for this PCR PM [employer] procedure are i n the results section. URINE CULTURE STAT 05/02/2020 3:51 Results fo r this PM [employer] procedure are i n the results section. CT HEAD WO CONTRAST STAT 05/02/2020 3:47 Resu lts for this PM [employer] procedure are i n the results section. SMEAR REVIEW STAT 05/02/2020 3:30 Results for this PM [employer] procedure are i n the results section. ESTIMATED GFR STAT 05/02/2020 3:30 Results fo r this PM [employer] procedure are i n the results section. BASIC METABOLIC PANEL STAT 05/02/2020 3:30 Re sults for this PM [employer] procedure are i n the results section. HCG QUALITATIVE, SERUM STAT 05/02/2020 3:30 R esults for this SCREEN PM [employer] procedure are i n the results section. HC COMPLETE BLD COUNT STAT 05/02/2020 3:30 Re sults for this W/AUTO DIFF PM [employer] procedure are i n the results section. URINALYSIS SCREEN AND STAT 05/02/2020 3:28 Re sults for this MICROSCOPY, WITH PM [employer] procedure a re in REFLEX TO CULTURE [...] Routine 04/06/2020 4:50 Res ults for this (BLEMISH REMOVER) PM CDT procedure are i n the [...] are i n the results section. after 06/11/2019 Results COVID-19 qualitative PCR (05/02/2020 4:10 PM [employer])Only the most recent of3 resultswithin the time period is included. Interpretation Negative results do not prec lude 2019-nCoV infection and should not be used as the sole basis for treatment or other patient management decisions. Negative results must be combined with clinical observations, patient history, and epidemiological HEMATITE information. [facility] COVID-19 qualitative Not-Detected Not-Detecte HEMATITE PCR result d [facility] COVID-19 qualitative See link below for HEMATITE PCR PDF Lab ROMAN CATHOLIC ReportComment: Case HOSPITAL Number: [id number] Specimen Nasopharyngeal swab Performing Organization Address City/[facility] Phon e Number [facility] DEPARTMENT OF PATHOLOGY AND [address] [place] [address] [address] [facility] Urine culture (05/02/2020 3:51 PM [employer])Only the most recent of3 resultswithin the time period is included. Urine culture Mixed prem <=10-3 col/cc [facility] IST isolate Comment: HOSPITAL Specimen Information Specimen Source: Urine Specimen Site: Clean catch Specimen Urine Performing Organization Address City/[facility] Phon e Number [facility] DEPARTMENT OF PATHOLOGY AND [address] [place] [address] [address] [address] Head Wo Contrast (05/02/2020 3:47 PM [employer])Only the most recent of4 results within the time period is included. Specimen Narrative Performed At EXAMINATION: CT HEAD WO CONTRAST [facility] CLINICAL HISTORY: sz COMPARISON: CT head [...] No CT evidence of acute intracranial abnormality. [id number] Procedure Note Hm Interface, Radiology Results Incoming - 05/02/2020 3:57 PM [employer] EXAMINATION: CT HEAD WO CONTRAST CLINICAL HISTORY: [...] No CT evidence of acute intracranial abnormality. [id number] Performing Organization Address City/State/ZIP Code Phon e Number [facility] [address] [place] [address] Smear review (05/02/2020 3:30 PM [employer]) Pathologist Sig nature Platelet slide Sana adequate [facility] Enlarged platelets Moderate (A) [facility] Specimen Plasma Performing Organization Address City/State/ZIP Code Phon e Number [facility] DEPARTMENT OF PATHOLOGY AND [address] [place], [place] [address] GENOMIC MEDICINE [facility] [address] [place] [address] Estimated GFR (05/02/2020 3:30 PM [employer])Only the most recent of7 resultswithin the time period is included. Pathologist [facility] Estimated GFR >=90 mL/min/1.73 [facility] Comment: m2 HOSPITAL Catergory Units [...] Organization Address City/State/ZIP Code Phon e Number [facility] DEPARTMENT OF PATHOLOGY AND [address] [place] [phone] GENOM[address] [address] CBC with platelet and differential (05/02/2020 3:30 PM [employer])Only the most recent of6 resultswithin the time period is included. [facility] WBC 10.69 4.50 - 11.00 [facility] k/uL [facility] RBC 4.71 4.20 - 5.50 [facility] m/uL [facility] HGB 13.5 12.0 - 16.0 [facility]/dL [facility] HCT 42.4 37.0 - 47.0 % [facility] MCV 90.0 82.0 - 100.0 [facility] MCH 28.7 27.0 - 34.0 pg [facility] MCHC 31.8 31.0 - 37.0 [facility] g/dL [facility] RDW - SD 41.3 37.0 - 55.0 fL [facility] MPV 10.0 8.8 - 13.2 fL [facility] Platelet count 260 150 - 400 k/uL [facility] Nucleated RBC 0.00 /100 WBC [facility] Neutrophils 65.7 39.0 - 69.0 % [facility] Lymphocytes 24.7 (L) 25.0 - 45.0 % [facility] Monocytes 7.3 0.0 - 10.0 % [facility] Eosinophils 1.3 0.0 - 5.0 % [facility] Basophils 0.7 0.0 - 1.0 % [facility] Immature granulocytes 0.3Comment: 0.0 - 1.0 % [facility] "Immature [facility] granulocytes" (promyelocytes , myelocytes, metamyelocytes ) Specimen Plasma Performing Organization Address City/[facility] Phon e Number [facility] DEPARTMENT OF PATHOLOGY AND [address] [place] [address] [address] [address] hCG qualitative, serum screen (05/02/2020 3:30 PM [employer]) [facility] hCG qualitative, NegativeComment: [facility] serum Sensitivity of HCG HOSPITAL test: 25 mIU/mL Specimen Blood Performing Organization Address [facility] Phon e Number [facility] DEPARTMENT OF PATHOLOGY AND [address] [place], [place] [address] [address] [address] Basic metabolic panel (05/02/2020 3:30 PM [employer])Only the most recent of4 results within the time period is included. [facility] nature Sodium 140 135 - 148 mEq/L [facility] L Potassium 3.7 3.5 - 5.0 mEq/L [facility] L Chloride 103 98 - 112 mEq/L [facility] CO2 25 24 - 31 mEq/L [facility] Anion gap 12@ANIO 7 - 15 mEq/L [facility] BUN 13 6 - 20 mg/dL [facility] Creatinine 0.70 0.50 - 0.90 mg/dL [facility] [place] Glucose 93 65 - 99 mg/dL [facility] Calcium 9.6 8.3 - 10.2 mg/dL [facility] AL Specimen Plasma Performing Organization Address City/[facility] Phon e Number [facility] DEPARTMENT OF PATHOLOGY AND [address] [place], [place] [address] 0 [place] [phone] Urinalysis screen and microscopy, with reflex to culture (05/02/2020 3:28 PM [employer])Only the most recent of3 resultswithin the time period is included. Specimen site Clean catch [facility] Color, UA Yellow [facility] Appearance, UA Clear [facility] Specific gravity, UA 1.035 1.001 - 1.035 [facility] pH, UA 5.0 5.0 - 8.5 [facility] Protein, UA Negative Negative [facility] Glucose, UA Negative Negative [facility] Ketones, UA Trace (A) Negative [facility] Bilirubin, UA Negative Negative [facility] Blood, UA Negative Negative [facility] Nitrite, UA Negative Negative [facility] Urobilinogen, UA <2.0 <2.0 [facility] Leukocyte esterase, Small (A) Negative [facility] Epithelial cells, UA 6 /HPF [facility] WBC, UA 10 (H) 0 - 4 /HPF [facility] RBC, UA 2 0 - 5 /HPF [facility] Bacteria, UA Few None seen [facility] Yeast, UA None seen [facility] Yeast with None seen [facility] pseudohyphae, HOSPITAL Specimen Urine Performing Organization Address [facility] Phon e Number [facility] DEPARTMENT OF PATHOLOGY AND [address] [place] [address] [address] POC glucose (04/06/2020 5:27 PM CDT)Only the most recent of2 resultswithin the time period is included. Pathologist Sig nature POC glucose 102 (H) 65 - 99 mg/dL [facility] Comment: HOSPITAL Envelope Folder Name: Gerber Mcdonald Device ID: [id number] Specimen Blood Performing Organization Address [facility] Phon e Number [facility] DEPARTMENT OF PATHOLOGY AND [address] [place], [place] [address] [address] [address] SS-B antibody (04/06/2020 4:50 PM CDT) Sjogren's SS-B 0.6 0.0 - 0.9 [facility] antibody [facility] SS-B antibody Negative [facility] Comment: ROMAN CATH[facility]IC SS-B/La antibody is seen in patients with Sjogre n syndrome, but may also be HOSPITAL positive with systemic lupus erythematosus (SLE), and systemic sclerosis. Specimen Serum Performing Organization Address City/[facility] Phon e Number [facility] DEPARTMENT OF PATHOLOGY AND [address] [place], [place] [address] [address] [address] SS-A antibody (04/06/2020 4:50 PM CDT) Sjogren's SS-A <0.2 0.0 - 0.9 [facility] antibody [facility] SS-A antibody Negative [facility] interp Comment: [facility] C[facility]IC SS-A antibody is sensitive for Sjogren's syndrom e, but may also be positive HOSPITAL with systemic lupus erythematosus (SLE), and systemic sclerosis. Specimen Serum Performing Organization Address City/State/ZIP Code Phon e Number [facility] DEPARTMENT OF PATHOLOGY AND [address] [place] [phone] Matthew antibody (04/06/2020 4:50 PM CDT) Matthew antibody <0.2 0.0 - 0.9 [facility] Matthew antibody Negative [facility] interp Comment: [facility] CATH[facility] Anti-Matthew antibodies occurs in 30-35% of system lupus erythematosus HOSPITAL (SLE) cases, but is very specific for SLE. It may also present in mixed connective-tissue disease (MCTD). Specimen Serum Performing Organization Address City/[facility] Phon e Number [facility] DEPARTMENT OF PATHOLOGY AND [address] [place] [address] Scl-70 antibody (04/06/2020 4:50 PM CDT) Scleroderma SCL-70 <0.2 0.0 - 0.9 [facility] Ab [facility] Scl-70 antibody Negative [facility] interp Comment: [facility] Anti-Scl-70 (topoisomerase I) antibodies are found in patients with HOSPITAL systemic sclerosis (SSc or scleroderma), and have been reported to be predictive of diffuse cutaneous involvement. Anti-Scl- 70 antibodies may also be present in patients with systemic lupus erythe matosus (SLE). Specimen Serum Performing Organization Address City/State/ZIP Code Phon e Number [facility] DEPARTMENT OF PATHOLOGY AND [address] [place] [address] [address] Ribonucleic antibody (BLEMISH REMOVER) (04/06/2020 4:50 PM CDT) Ribonucleic <0.2 0.0 - 0.9 [facility] antibody (BLEMISH REMOVER) [facility] Ribonucleic Negative [facility] antibody (BLEMISH REMOVER) Comment: [facility] interp Anti-ribonucleic protein (anti-BLEMISH REMOVER) antibodies a re typically found in HOSPITAL patients with mixed connective tissue disease, but can also be seen in patients with systemic lupus erythematosus (SLE) or sy stematic sclerosis. Specimen Serum Performing Organization Address City/[facility]/ZIP Code Phon e Number [facility] DEPARTMENT OF PATHOLOGY AND [address] [place] [phone] Bernarda-1 antibody (04/06/2020 4:50 PM CDT) Bernarda-1 antibody <0.2 0.0 - 0.9 [facility] Bernarda-1 antibody Negative [facility] Comment: ROMAN CATHOLIC Anti-Bernarda-1 antibody is predominantly found in pat ients with polymyositis, HOSPITAL especially for those with interstitial pulmonary fibro sis. It can also be found in patients with dermatomyositis. Specimen Serum Performing Organization Address City/[facility] Phon e Number [facility] DEPARTMENT OF PATHOLOGY AND [address] [place] [address] [address] Centromere antibody (04/06/2020 4:50 PM CDT) Centromere <0.2 0.0 - 0.9 [facility] Centromere Negative [facility] interp Comment: HOSPITAL Anti-centromere antibodies are found in patients with systemic sclerosis (SSc or scleroderma), especially for those with limite d cutaneous or CREST syndrome. Anti-centromere antibodies may also be found in patients with other rheumatic or connective tissue diseases. Specimen Serum Performing Organization Address City/State/ZIP Code Phon e Number [facility] DEPARTMENT OF PATHOLOGY AND [address] [place] [address] [address] Double-stranded DNA (dsDNA) antibodies, Crithidia (04/06/2020 4:50 PM CDT) Pathologist Sig nature DNA Ab screen Not Detected Not-Detected [facility] Specimen Blood Performing Organization Address City/State/ZIP Code Phon e Number [facility] DEPARTMENT OF PATHOLOGY AND [address] [place] [address] [address] [address] Homocystine, plasma (04/05/2020 5:40 PM CDT)Only the most recent of3 results within the time period is included. Homocysteine 6.7 0.0 - 15.0 [facility] Comment: umol/L HOSPITAL The risk for coronary vascular disease increases progr essively with homocysteine concentration. A 3.4 times greater risk is associated with a homocysteine concentration of greate r than 15.8 umol/L as compared to a concentration below 14.1 umol/L. Specimen is slightly hemolyzed. Interpret results ac cordingly. Specimen Plasma Performing Organization Address City/[facility] Phon e Number [facility] DEPARTMENT OF PATHOLOGY AND [address] [place], [place] [address] [address] [address] Potassium level (04/05/2020 5:40 PM CDT) Pathologist Sig nature Potassium 3.7 3.5 - 5.0 mEq/L [facility] L Specimen Plasma Performing Organization Address City/State/[facility] Phon e Number [facility] DEPARTMENT OF PATHOLOGY AND [address] [place] [address] [address] EEG (routine) (04/05/2020 11:03 AM CDT) Narrative [...] period is included. Syphilis total Non-reactiveComment Non-reactive [facility] antibody : No serological HOSPITAL evidence of syphilis infection. Specimen Serum Narrative Performed At Unable to perform testing, specimen is [facility] DEPARTMENT OF PATHOLOGY AND GENOMIC [...] Organization Address City/State/ZIP Code Phon e Number [facility] DEPARTMENT OF PATHOLOGY AND [address] [place], [place] [address] [address] [address] HIV Ag/Ab combination (04/05/2020 4:00 AM CDT)Only the most recent of2 results within the time period is included. HIV Ag/Ab combination Non-reactive Non-reactive [facility] Specimen Blood Performing Organization Address City/[facility] Phon e Number [facility] DEPARTMENT OF PATHOLOGY AND [address] [place] [address] [address] [address] Vitamin D 25 hydroxy level (04/05/2020 4:00 AM CDT)Only the most recent of2 resultswithin the time period is included. Vitamin D, 12.1 (L) 30.0 - 150.0 [facility] 25-hydroxy Comment: ng/mL HOSPITAL This [...] alternative methods. Specimen Blood Performing Organization Address City/[facility] Phon e Number [facility] DEPARTMENT OF PATHOLOGY AND [address] [place] [address] [address] [address] Rheumatoid factor (04/05/2020 4:00 AM CDT)Only the most recent of2 results within the time period is included. Pathologist Sig nature Rheumatoid factor <10 0 - 13 IU/mL [facility] [place] Specimen Plasma Narrative Performed At Unable to perform testing, specimen is [facility] DEPARTMENT OF PATHOLOGY AND GENOMIC _HEMOLYZED___. Recollect MEDICINE requested for __K__ (tests). __ENOC [id number] (name/location) notified by ___JT_ (tech ID) at __ 04/05/2020 07:01 __ (date/time). Credit issued. Performing Organization Address City/[facility] Phon e Number [facility] DEPARTMENT OF PATHOLOGY AND [address] [place] [address] [address] [address] C-reactive protein (04/05/2020 4:00 AM CDT)Only the most recent of2 results within the time period is included. Pathologist Sig nature CRP <0.30 0.00 - 0.50 mg/dL [facility] [place] Specimen Plasma Performing Organization Address [facility] Phon e Number [facility] DEPARTMENT OF PATHOLOGY AND [address] [place] [address] [place] [address] T3 (04/05/2020 4:00 AM CDT) Pathologist Sig nature T3 89 80 - 200 ng/dL [facility] Specimen Plasma Performing Organization Address [facility] Phon e Number [facility] DEPARTMENT OF PATHOLOGY AND [address] [place] [address] Thyroid stimulating hormone (04/05/2020 4:00 AM CDT)Only the most recent of2 resultswithin the time period is included. Pathologist Sig nature TSH 1.26 0.27 - 4.20 uIU/mL [facility] ITAL Specimen Plasma Performing Organization Address [facility] Phon e Number [facility] DEPARTMENT OF PATHOLOGY AND [address] [place] [address] [address] T4, free (04/05/2020 4:00 AM CDT)Only the most recent of2 resultswithin the time period is included. Pathologist Sig nature T4, free 1.1 0.9 - 1.7 ng/dL [facility] L Specimen Plasma Performing Organization Address [facility] Phon e Number [facility] DEPARTMENT OF PATHOLOGY AND [address] [place] [address] [address] Magnesium level (04/05/2020 4:00 AM CDT)Only the most recent of3 resultswithin the time period is included. Pathologist Sig nature Magnesium 1.8 1.6 - 2.6 mg/dL [facility] L Specimen Plasma Performing Organization Address [facility] Phon e Number [facility] DEPARTMENT OF PATHOLOGY AND [address] [place] [address] [address] [address] Folate level (04/05/2020 4:00 AM CDT)Only the most recent of2 resultswithin the time period is included. Pathologist Sig nature Folate 14.0 4.8 - 24.2 ng/mL [facility] Specimen Serum Performing Organization Address [facility] Phon e Number [facility] DEPARTMENT OF PATHOLOGY AND [address] [place] [address] Vitamin B12 level (04/05/2020 4:00 AM CDT)Only the most recent of2 results within the time period is included. Vitamin B12 [phone] [facility] Comment: pg/mL HOSPITAL Significant overlap exists between normal and deficien cy states. However, most patients with deficiencies will have Ser um B12 <200 pg/mL. Specimen Serum Performing Organization Address [facility] Phon e Number [facility] DEPARTMENT OF PATHOLOGY AND [address] [place] [address] [address] Sedimentation rate (04/04/2020 9:00 PM CDT)Only the most recent of2 results within the time period is included. Pathologist Sig nature Sedimentation rate 6 0 - 20 mm/hr [facility] Specimen Plasma Performing Organization Address [facility] Phon e Number [facility] DEPARTMENT OF PATHOLOGY AND [address] [place] [address] [address] [address] CBC hemogram (04/04/2020 9:00 PM CDT) Pathologist Sig nature WBC 7.66 4.50 - 11.00 k/uL [facility] RBC 4.23 4.20 - 5.50 m/uL [facility] HGB 12.2 12.0 - 16.0 g/dL [facility] HCT 36.8 (L) 37.0 - 47.0 % [facility] MCV 87.0 82.0 - 100.0 fL [facility] MCH 28.8 27.0 - 34.0 pg [facility] MCHC 33.2 31.0 - 37.0 g/dL [facility] RDW - SD 40.3 37.0 - 55.0 fL [facility] MPV 10.1 8.8 - 13.2 fL [facility] Platelet count 247 150 - 400 k/uL [facility] Nucleated RBC 0.00 /100 WBC [facility] Specimen Plasma Performing Organization Address [facility] Phon e Number [facility] DEPARTMENT OF PATHOLOGY AND [address] [place] [address] [phone] GENOMIC MEDICINE [place] [id number] [place] [address] Keppra (Levetiracetam) level (04/04/2020 8:15 PM CDT)Only [...] vomiting. This levetiracetam (Keppra) immunoassay uses the [facility] CSDNs reagents, which has known cross-reactivity with the dr norma estrellatam (Briviact) and may report inaccurate resu lts. Patients transitioning from levetiracetam to brivarace goldstein or those who are using both medications should not monitor drug concentrations with the Bitnami assay. These p atients should be monitored using a validated chromatographic methodology that distinguishes between drugs to determine drug con centrations. Performed By: [facility] [address] [place] [address] Cover Assembler: Gege Pierson MD Specimen Serum Performing Organization Address [facility] Phon e Number [facility] [address] [place] [address] [facility] [address] [place] [address] Urine drugs of abuse screen (04/04/2020 7:19 PM CDT)Only the most recent of2 resultswithin the time period is included. Amphetamine screen, Negative HEMATITE urine [facility] Barbiturate screen, Negative HEMATITE urine [facility] Benzodiazepine Positive (A) HEMATITE screen, urine [facility] Cocaine screen, urine Negative [facility] Methadone metabolite Negative HEMATITE (EDDP), urine [facility] Opiates screen, urine Negative [facility] Oxycodone screen, Negative HEMATITE urine [facility] Phencyclidine screen, Negative HEMATITE urine [facility] Tricyclic screen, Negative HEMATITE urine [facility] Cannabinoid screen, Negative HEMATITE urine Comment: [facility] Drug screen minimum [...] requir ed. Specimen Urine Performing Organization Address City/[facility] Phon e Number [facility] DEPARTMENT OF PATHOLOGY AND [address] [place] [address] [phone] [address] Prolactin level (04/04/2020 7:07 PM CDT)Only the most recent of2 resultswithin the time period is included. Pathologist Sig nature Prolactin 13 5 - 23 ng/mL [facility] Specimen Plasma Performing Organization Address City/[facility] Phon e Number [facility] DEPARTMENT OF PATHOLOGY AND [address] [place] [address] [phone] [address] ECG 12 lead (04/04/2020 7:02 PM CDT)Only the most recent of2 resultswithin the time period is included. Pathologist Sig nature Ventricular rate 77 [facility] Atrial rate 77 [facility] ND interval 154 [facility] QRSD interval 82 [facility] QT interval 378 [facility] QTC interval 427 [facility] P axis 1 17 [facility] QRS axis 1 16 [facility] MUSE T wave axis 11 [facility] MUSE EKG impression Normal sinus [facility] MUSE rhythm-Possible Anterior infarct , age undetermined-Abnormal ECG-In automated comparison with ECG of 12-NOV-2019 21:10,-No significant change was found- Specimen Narrative Performed At This result has an attachment that is no t available. Performing Organization Address [facility] Phon e Number [facility] MUSE [address] [place] [address] CRITICAL CARE (04/04/2020 6:48 PM CDT) Narrative Performed At Max Ron MD 04/20/2020 3:37 PM Critical Care Performed by: Enoc Byers Authorized by: Max Ron MD Critical care provider statement: Critical care time (minutes): 20 Critical care was necessary to treat or prevent imminent or life-threatening deterioration of the following condit ions: QUALITY SUPERVISOR failure or compromise Critical care was [...] Lactic acid 1.1 0.5 - 2.2 mmol/L [facility] Specimen Plasma Performing Organization Address [facility] Phon e Number [facility] DEPARTMENT OF PATHOLOGY AND [address] [place] [address] [phone] GENOMIC MEDICINE [address] [address] Phosphorus level (04/04/2020 6:33 PM CDT) Pathologist Sig nature Phosphorus 3.7 2.4 - 4.5 mg/dL [facility] L Specimen Plasma Performing Organization Address [facility]/State/ZIP Code Phon e Number [facility] DEPARTMENT OF PATHOLOGY AND [address] [place], [place] [address] [facility] [address] [place] [address] Comprehensive metabolic panel (04/04/2020 6:33 PM CDT)Only the most recent of3 resultswithin the time period is included. Sodium 138 135 - 148 [facility] mEq/L [facility] Potassium 3.6 3.5 - 5.0 [facility] mEq/L [facility] Chloride 105 98 - 112 [facility] mEq/L [facility] CO2 22 (L) 24 - 31 mEq/L [facility] Anion gap 11@ANIO 7 - 15 mEq/L [facility] BUN 7 6 - 20 mg/dL [facility] Creatinine 0.46 (L) 0.50 - 0.90 [facility] mg/dL [facility] Glucose 96 65 - 99 mg/dL [facility] Calcium 9.2 8.3 - 10.2 [facility] mg/dL [facility] Protein 7.1 6.3 - 8.3 [facility] Comment: g/dL [facility] [place] 4.6-7.0 g/dL 1 week 4.4-7.6 g/dL 7 months-1year 5.1-7.3 g/dL 1-2 years 5.6-7.5 g/dL >3 years 6.0-8.0 g/dL 18-150 6.3-8.3 g/dL Albumin 3.8 3.5 - 5.0 [facility] g/dL [facility] A/G ratio 1.2 0.7 - 3.8 [facility] Alkaline phosphatase 64 35 - 104 U/L [facility] AST 20 10 - 35 U/L [facility] ALT 14 5 - 50 U/L [facility] Total bilirubin 0.4 0.0 - 1.2 [facility] mg/dL [facility] Specimen Plasma Performing Organization Address City/State/ZIP Code Phon e Number [facility] DEPARTMENT OF PATHOLOGY AND [address] [place], [place] [phone] [place] [id number] [place] [address] PET Brain Metabolic Eval (03/30/2020 1:51 PM [...] cerebellar hypometabolism sugg ests a pharmacologic effect. [facility]-[id number] Procedure Note Interface, Radiology Results Incoming - [...] cerebellar hypometabolism sugg ests a pharmacologic effect. [facility]-[id number] Performing Organization Address City/State/ZIP Code Phon e Number [facility] [address] [place] [address] MRI Brain W Wo Contrast (03/27/2020 1:50 PM CDT)Only the most recent of2 resultswithin the time period is included. Specimen Narrative Performed At This result has an attachment that is no t available. EXAMINATION: MRI BRAIN W WO CONTRAST [facility] CLINICAL HISTORY: R56.9 Unspecified convulsions, Sei zures COMPARISON: Brain MRI on 11/13/[address] on 03/12/20 20. TECHNIQUE: High-resolution brain MRI wit hout and with intravenous gadolinium contrast acquired using 7T MRI with 1Tx/32Rx head coil. Acquired sequences include MPRAGE, [id number], T2 JAEL, T2 FLAIR, SWI, and DTI [...] abnormality identified to explain patien t's seizures. [facility]-[id number] Procedure Note [facility], Radiology Results Incoming - 03/28/2020 2:52 PM CDT EXAMINATION: MRI BRAIN W WO CONTRAST CLINICAL HISTORY: R56.9 Unspecified con vulsions, Seizures COMPARISON: Brain MRI on 11/13/[address] on 03/12/2020. TECHNIQUE: High-resolution brain MRI wit hout and with intravenous gadolinium contrast acquired using 7T MRI with 1Tx/32Rx head coil. Acquired sequences include MPRAGE, [id number], T2 JAEL, T2 FLAIR, SWI, and DTI [...] structural abnormality identified to explain patient's seizures. [facility]-[id number] Performing Organization Address City/State/ZIP Code [facility] e Number [facility] [address] [place] [address] Epilepsy/Seizure monitoring (03/15/2020 12:14 PM CDT) Narrative [...] time period is included. Manual differential PERFORMED [facility] Neutrophils 51.0 39.0 - 69.0 % [facility] Lymphocytes 34.0 25.0 - 45.0 % [facility] Monocytes 13.0 (H) 0.0 - 10.0 % [facility] Eosinophils 2.0 0.0 - 5.0 % [facility] Basophils 0.0 0.0 - 1.0 % [facility] Metamyelocytes 0 % [facility] Promyelocytes 0 % [facility] Platelet slide review Sana adequate [facility] Anisocytosis Moderate [facility] Ovalocytes Moderate [facility] Enlarged platelets Moderate (A) [facility] Specimen Performing Organization Address City/State/ZIP Code Phon e Number [facility] DEPARTMENT OF PATHOLOGY AND [address] [place] [phone] GENOMIC MEDICINE [facility] [address] [place] [address] Continuous EEG monitoring (11/15/2019 1:22 AM CDT) [...] level 20 (L) 37 - 145 ug/dL [facility] Iron binding capacity 335 200 - 400 ug/dL [facility] % Saturation 6.0 (L) 15.0 - 38.0 % [facility] Specimen Blood Performing Organization Address City/[facility] Phon e Number [facility] DEPARTMENT OF PATHOLOGY AND [address] [place] [address] Ferritin level (11/13/2019 4:00 AM CDT) Pathologist Sig [facility] Ferritin level <13 (A) 13 - 150 ng/mL [facility] Specimen Blood Performing Organization Address City/[facility] Phon e Number [facility] DEPARTMENT OF PATHOLOGY AND [address] [place] [address] [address] MARCELINO titer (11/12/2019 7:40 PM CDT) Pathologist Sig nature MARCELINO titer 1:160 (A) Not-Detected [facility] MARCELINO pattern Homogeneous (A) Not-Detected [facility] Specimen Blood Performing Organization Address City/[facility] Phon e Number [facility] DEPARTMENT OF PATHOLOGY AND [address] [place] [address] [address] MARCELINO (11/12/2019 7:40 PM CDT) MARCELINO screen Positive (A) Negative [facility] Comment: HOSPITAL Test performed using [employer] DAPI MARCELINO kit (Indirect Immunofluorescence Assay) for Anti-Nuclear Antibody on [employer] 160 Analyzer. Specimen Blood Performing Organization Address City/[facility] Phon e Number [facility] DEPARTMENT OF PATHOLOGY AND [address] [place] [address] [phone] [address] Creatine kinase, total (CPK) (11/12/2019 7:40 PM CDT) Pathologist Sig nature Creatine kinase 56 26 - 192 U/L [facility] HOSPITA L Specimen Performing Organization Address [facility] Phon e Number [facility] DEPARTMENT OF PATHOLOGY AND [address] [place] [address] [phone] [address] Cortisol level, random (11/12/2019 7:40 PM CDT) Cortisol, random 2 ug/dL [facility] Comment: HOSPITAL Reference Ranges are not established for non-timed Cor tisol levels. Reference Range for Timed Cortisol: 6 - 10 AM 6 - 18 ug/d l 4 - 8 PM 3 - 11 ug/ dl Specimen Blood Performing Organization Address [facility] Phon e Number [facility] DEPARTMENT OF PATHOLOGY AND [address] [place] [address] [phone] [address] [address] Cervical Spine Wo Contrast (11/12/2019 6:12 [...] subluxation identif ied in the cervical spine. [facility]-[id number] Procedure Note Interface, Radiology Results Incoming - [...] subluxation identif ied in the cervical spine. [facility]-[id number] Performing Organization Address City/State/ZIP Code Phon e Number [facility] [address] [place] [address] CT Maxillofacial Wo Contrast (11/12/2019 6:09 PM [...] unre markable. The paranasal sinuses are clear. [facility]-[id number] Procedure Note Interface, Radiology Results Incoming - [...] unre markable. The paranasal sinuses are clear. [facility]-[id number] Performing Organization Address [facility] Phon e Number [facility] [address] [place] [address] XR Chest 1 Vw Portable (11/12/2019 5:35 [...] There is no acute cardiopulmonary dis ease. [id number] Procedure Note Interface, Radiology Results Incoming - [...] There is no acute cardiopulmonary dis ease. [id number] Performing Organization Address [facility] Phon e Number [facility] [address] [place] [address] Alcohol level, blood (11/12/2019 5:04 PM CDT) [facility] Alcohol None Detected mg/dL [facility] Comment: HOSPITAL Normal None Detected Legal Intoxication in [place] 80 mg/dL (0.08%) - Whole Blood Toxic Concentration 200 mg/dL (0.2%) Potentially Fatal 350 - 500 mg/dL (0. 35 - 0.5%) Alcohol percent None Detected % [facility] Specimen Blood Performing Organization Address [facility] Phon e Number [facility] DEPARTMENT OF PATHOLOGY AND [address] [place] [address] [phone] GENOMIC MEDICINE [address] [address] hCG qualitative, urine screen (11/12/2019 2:44 PM CDT) hCG qualitative, NegativeComment: [facility] urine Sensitivity of HCG HOSPITAL test: 25 mIU/mL Specimen Urine Performing Organization Address City/State/ZIP Code Phon e Number [facility] DEPARTMENT OF PATHOLOGY AND [address] [place], [place] [address] GENOMIC MEDICINE [facility] [address] [place] [address] after 06/11/2019 Advance Directives For more information, please contact: [phone] Type Date Recorded Patient Health Information Administrator Explanati on Advance Directives, Living 05/02/2020 4:24 PM Will and Medical Power of Preschool Adviser
--- OUTSIDE RECORDS SUMMARY | 2020-06-11 03:30 | XMS REPORT | Clinical Summary ---
:1990 Author Organization [facility] Address [address] [place] [address] Care Team Providers Name Role Phone Unavailable Primary Care Provider Unavailable Allergies No Known Allergies Medications Medication Sig Dispensed Refills Start Date End Date Status levETIRAcetam (KEPPRA) Take 1 tablet 60 tablet 2 05/19/2017 Active 1000 MG tablet (1,000 mg total) by mouth 2 (two) times daily. vitamin Take 1 tablet by 90 tablet 3 05/20/2017 Active w/fqyqheg-ugnr-qeqacp mouth daily. ( PLUS) 27 mg iron- [...] Not on file Results Not on fileafter 06/11/2019 [id number] Advance Directives For more information, please contact: [phone] Code Status Date Activated Date Inactivated Comments Full Code 05/14/2017 10:10 PM 05/19/2017 2:55 PM This code status was determined by: Patient
--- OUTSIDE RECORDS SUMMARY | 2020-06-11 03:33 | XMS REPORT | Continuity of Care Document ---
:1990 Author Organization [facility] t Address [address] [place] [address] Care Team Providers Name Role Phone Asked, Pcp Primary Care Physician Unavailable Chauncey Regan MD Attending Clinician Room, Therapy Tub Attending Clinician Unavailable Vini Turner MD Attending Clinician Gaye [...] Expiration Date Sour ce Number CIGNACIGNA OPEN [id number] 2019 [place] ACCESS/NETWORKxx 00:00:00 Methodis t [id number]/ 0-PresentHMO MEDICAIDMEDICAID [id number] 2019 [place] [id number] 00:00:00 Methodis t 0-PresentMedicai d Problems Condition Condition Condition Status Onset Resolution Last Treating Co mments Source Name Details Category Date Date Treatment Clinician Date Epilepsy Epilepsy Disease Active 2019-06 [place] [facility] 00:[facility]: st 00 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[facility]i epilepsy epilepsy 00:00: st with with 00 generaliza generaliza tion and tion and with with intractabl intractabl e epilepsy e epilepsy Seizure Seizure Disease Active [place] 11-11 [facility] 00:00: st 00 Hypokalemi Hypokalemi Disease Active 2016-[address] [facility] [place] Acute Acute Disease Active 2016-[address] [facility] encephalop encephalop 07-14 [facility] kes - athy athy 00:00: Medical 00 Center Seizure Seizure Disease Active 2016-[address] [facility] [address] disorder disorder 07-14 [facility] 00 [place] Leukocytos Leukocytos Disease Active 2016-[address] is is 07-14 [facility] Less than Less than Disease Active 2016-[address] [facility] 8 weeks 8 weeks 07-14 [facility] - gestation gestation 00:00: Medi jesica of of 00 Center Allergies, Adverse Reactions, Alerts Allergy Allergy Status Severity Reaction(s) Onset Inactive Treating Comm ents Source Name Type Date Date Clinician No Known DA Active U [facility] 02[facility]23 [place] [facility] No Known DA Active U 2016- [facility] Allergie 24 [facility] s 00:[facility]: [facility] Social History Social Habit Start Date Stop Date Quantity Comments Source Sex Assigned At [facility] ethodist Exposure to Not sure [place] Metho dist SARS-CoV-2 (event) Tobacco use and 2020-05-02 2020-05-02 Never used [facility] ethodist exposure 00:00:00 00:00:00 Alcohol intake 2020-05-02 2020-05-02 Ex-drinker [facility] thodist 00:00:00 00:00:00 (finding) Smoking Status Start Date Stop Date Source Never smoker [place] Methodis t Medications Ordered Filled Start Stop Current Ordering Indication Dosage Frequency Signature Comments Components Source Medication Medication Date Date Medication? Clinician (SIG) Name Name cloBAZam 2019-06- Yes 30mg QD Take 3 [place] (ONFI) 10 1-12 05-11 tablets Method i mg tablet 00:00: 23:59 ([address] 00 :00 total) by mouth daily for 180 days. ergocalcife 2019-06- No 16442F Q7D Take 1 [place]l 0-31 [...] times a day for 30 days. divalproex 2019-2019- No 250mg Q.5D Take 250 [place] [...] Q.5D Take 3 [place] (KEPPRA) 11-14-02 tablets Meth maude 750 MG 00:00: 23:59 (2,[address] tablet 00 :00 total) by mouth 2 (two) times a day for 30 days. B 2019- No 1{tbl} QD Take 1 Nunez complex-vit 11-14- tablet by Pr marques carter 00:00: 23:[address] C-folic 00 :00 daily for acid 30 days. (FOLBEE PLUS 5 MG) 5 mg tablet per tablet cloBAZam 2020- No 10mg QD Take 1 [place] (ONFI) 10 11-14-02 tablet (10 Met hodi mg tablet 00:00: 23:59 mg total) st 00 :00 by mouth nightly for 30 days. ferrous 2019- 2020- No 325mg Q.5D Take 1 [place] sulfate 325 11-14- tablet Metho di (65 FE) MG 00:00: 23:59 ([address] tablet 00 :00 total) by mouth 2 (two) times a day with meals for 30 days. docusate 2019- 2020- No 100mg Q.5D Take 1 [place] [...] ts Source Name Name Tdap 2020-05-02 Completed [place] 00:00:00 Amish Vital Signs Vital Name Observation Time Observation Value Comments Source Systolic blood 2020-05-02 17:45:00 127 mm[Hg] Sonjato n Amish pressure Diastolic blood 2020-05-02 17:45:00 74 mm[Hg] Julee on Amish pressure Heart rate 2020-05-02 17:45:00 82 /min Nunez Amish Respiratory rate 2020-05-02 17:45:00 14 /min Sonja Piedra Oxygen saturation in 2020-05-02 17:45:00 100 /min Nunez Amish Arterial blood by Pulse oximetry Body height 2020-05-02 14:28:00 160 cm Nunez Amish Body weight 2020-05-02 14:28:00 78.019 kg Nunez Amish BMI 2020-05-02 14:28:00 30.47 kg/m2 [place] Amish Body temperature 2020-05-02 14:17:21 36.94 Melody Sonja ton Amish Procedures Procedure Date / Time Performing Clinician Source Performed COVID-19 QUALITATIVE PCR 2020-05-02 16:10:00 Daniel Turner URINE CULTURE 2020-05-02 15:51:[address] HEAD WO CONTRAST 2020-05-02 15:47:02 Daniel Turner on Amish HC COMPLETE BLD COUNT 2020-05-02 15:30:00 Terri Turneril Vini aguila Amish W/AUTO DIFF HCG QUALITATIVE, SERUM 2020-05-02 15:30:00 Daniel Turner Vini Mccabe capri Amish SCREEN BASIC METABOLIC PANEL 2020-05-02 15:30:00 Daniel Turner Vini Chandler aguila Amish ESTIMATED GFR 2020-05-02 15:30:00 Daniel Turner Vini Rai ethodist SMEAR REVIEW 2020-05-02 15:30:00 Terri Turnerori Rai ethodist URINALYSIS SCREEN AND 2020-05-02 15:28:00 Daniel Turner Amish MICROSCOPY, WITH REFLEX TO CULTURE POC GLUCOSE 2020-04-06 17:27:00 Freddy Ocasio Meth odist DOUBLE-STRANDED DNA 2020-04-06 16:50:00 Ninfa Johnson Amish (DSDNA) ANTIBODIES, Ninfa CRITHIDIA CENTROMERE ANTIBODY 2020-04-06 16:50:00 Ninfa Johnson Amish Ahmed SS-B ANTIBODY 2020-04-06 16:50:00 Ninfa Johnson thodist Ahmed POTASSIUM LEVEL 2020-04-05 17:40:00 Reza Avelar odadriano HOMOCYSTINE, PLASMA 2020-04-05 17:40:00 Reza Avelar EEG AWAKE/DROWSY LESS 2020-04-05 11:03:26 Reza Avelar Amish THAN 41 MIN HC COMPLETE BLD COUNT 2020-04-05 04:00:00 Caesar Maxwell on Amish W/AUTO DIFF VITAMIN B12 LEVEL 2020-04-05 04:00:00 Reza Avelar Pr thodist C-REACTIVE PROTEIN 2020-04-05 04:00:00 Reza Avelar ethodist HOMOCYSTINE, PLASMA 2020-04-05 04:00:00 Reza Avelar RHEUMATOID FACTOR 2020-04-05 04:00:00 Reza Avelar Pr thodist THYROID STIMULATING 2020-04-05 04:00:00 Reza Avelar HORMONE T4, FREE 2020-04-05 04:00:00 Reza Avelar Meth odist T3 2020-04-05 04:00:00 eRza Avelar Meth odist SYPHILIS TOTAL ANTIBODY 2020-04-05 04:00:00 Reza Avelar Amish HIV AG/AB COMBINATION 2020-04-05 04:00:00 Reza Avelar Amish VITAMIN D 25 HYDROXY 2020-04-05 04:00:00 Reza Avelar LEVEL BASIC METABOLIC PANEL 2020-04-05 04:00:00 Caesar Maxwell on Amish FOLATE LEVEL 2020-04-05 04:00:00 Caesar Maxwell Met aleah MAGNESIUM LEVEL 2020-04-05 04:00:00 Caesar Maxwell Met aleah ESTIMATED GFR 2020-04-05 04:00:00 Caesar Maxwell Met aleah COVID-19 QUALITATIVE PCR 2020-04-04 22:52:[address] HEAD WO CONTRAST 2020-04-04 21:17:59 Max Ron n Amish CBC HEMOGRAM 2020-04-04 21:00:00 Max Ron Me thodist SEDIMENTATION RATE 2020-04-04 21:00:00 Max Ron URINE CULTURE 2020-04-04 20:52:00 Max Ron Me thodist KEPPRA (LEVETIRACETAM) 2020-04-04 20:15:00 Max Ronu ston Amish LEVEL URINALYSIS SCREEN AND 2020-04-04 19:19:00 Max Ron Amish MICROSCOPY, WITH REFLEX TO CULTURE URINE DRUGS OF ABUSE 2020-04-04 19:19:00 Max Ron on Amish SCREEN PROLACTIN LEVEL 2020-04-04 19:07:00 Max Ron Me thodist ECG 12-LEAD 2020-04-04 19:02:38 Max Ron Me thodist CRITICAL CARE 2020-04-04 18:48:10 Lila Byers Meth odist COMPREHENSIVE METABOLIC 2020-04-04 18:33:00 Asaf Max Chandrika farooq Amish PANEL LACTIC ACID LEVEL, SEPSIS 2020-04-04 18:33:00 Asaf Maxtheo Nunez Amish - NOW AND REPEAT 2X EVERY 3 HOURS MAGNESIUM LEVEL 2020-04-04 18:33:00 Max Ron Cobos Nunez Me thodist PHOSPHORUS LEVEL 2020-04-04 18:33:00 Max Ron M ethodist ESTIMATED GFR 2020-04-04 18:33:00 Max Ron Me thodist PET BRAIN METABOLIC EVAL 2020-03-30 13:51:58 Pinky Huizarnina aguila Amish POC GLUCOSE 2020-03-30 12:29:00 Richard Huizar Enrique Meth odist MRI BRAIN W WO CONTRAST 2020-03-27 13:50:00 HuizarPinky awadnina Piedra MONITORED VIDEO-EEG 60 2020-03-15 12:14:01 Pinky Huizarnina Cruzist HRS 1 MIN-74 HRS MONITORED W VIDEO DAILY 2020-03-15 00:12:21 Gaye Richard lemus Amish MONITORED W VIDEO DAILY 2020-03-14 00:24:17 Gaye Richard lemus Amish EEG SETUP 2020-03-13 00:17:20 Richard Huizar Nunez Meth odist HC COMPLETE BLD COUNT 2020-03-12 14:18:00 Ulises Choudhary W/AUTO DIFF COMPREHENSIVE METABOLIC 2020-03-12 14:18:00 Ulises Choudhary Amish PANEL ESTIMATED GFR 2020-03-12 14:18:00 Pinky Huizarnina Nunez Meth odist MAGNESIUM LEVEL 2020-03-12 14:18:00 Richard Huizar Enrique Meth odist CT HEAD WO CONTRAST 2020-03-12 13:25:51 Ulises Choudhary COVID-19 QUALITATIVE PCR 2020-03-12 11:53:00 Ulises Choudhary UNMONITORED VIDEO-EEG 36 2019-11-15 09:41:23 Bina Bonds HRS 1 MIN-50 HRS CBC WITH PLATELET AND 2019-11-15 04:30:00 Adenw[place], Adrian [place] DIFFERENTIAL Ebrahim MANUAL DIFFERENTIAL 2019-11-15 04:30:00 Liana Adrianricardo Nunez Amish Ebrahim BASIC METABOLIC PANEL 2019-11-15 04:00:00 Adrian Diana Amish Ebrahim ESTIMATED GFR 2019-11-15 04:00:00 Adrian Diana Meth odist Ebrahim UNMONITORED VIDEO DAILY 2019-11-15 01:22:22 Bina Bonds EEG SETUP 2019-11-14 00:26:44 Bina Bonds EEG (ROUTINE) 2019-11-13 07:46:23 Bina Bonds CBC WITH PLATELET AND 2019-11-13 04:00:00 Caesar Maxwell on Amish DIFFERENTIAL BASIC METABOLIC PANEL 2019-11-13 04:00:00 Caesar Maxwell on Amish TOTAL IRON BINDING 2019-11-13 04:00:00 Caesar Maxwell CAPACITY FERRITIN LEVEL 2019-11-13 04:00:00 Caesar Maxwell Met hodist ESTIMATED GFR 2019-11-13 04:00:00 Caesar Maxwell Met hodist MANUAL DIFFERENTIAL 2019-11-13 04:00:00 Caesar Maxwell MRI BRAIN W WO CONTRAST 2019-11-13 02:16:00 Bina Bonds CONSULT TO OSTOMY CARE 2019-11-12 23:40:27 Caesar Maxwell Amish NURSE ECG 12-LEAD 2019-11-12 21:10:47 Bina Bonds MARCELINO 2019-11-12 19:40:00 Bina Bonds FOLATE LEVEL 2019-11-12 19:40:00 Bina Bonds VITAMIN B12 LEVEL 2019-11-12 19:40:00 Bina Bonds Amish C-REACTIVE PROTEIN 2019-11-12 19:40:00 Bina Bonds on Amish HOMOCYSTINE, PLASMA 2019-11-12 19:40:00 Bina Bonds Amish CORTISOL LEVEL, RANDOM 2019-11-12 19:40:00 Bina Bonds Amish SEDIMENTATION RATE 2019-11-12 19:40:00 Bina Bonds on Amish RHEUMATOID FACTOR 2019-11-12 19:40:00 Bina Bonds Amish THYROID STIMULATING 2019-11-12 19:40:00 Bina Bonds Amish HORMONE T4, FREE 2019-11-12 19:40:00 Bina Bonds SYPHILIS TOTAL ANTIBODY 2019-11-12 19:40:00 Bina Bonds HIV AG/AB COMBINATION 2019-11-12 19:40:00 Bina Bonds Amish VITAMIN D 25 HYDROXY 2019-11-12 19:40:00 Bina Bonds stoalberta Amish LEVEL CREATINE KINASE, TOTAL 2019-11-12 19:40:00 Shari Bailey on Amish (CPK) [facility] PROLACTIN LEVEL 2019-11-12 19:40:00 Shari Bailey Meth odist Adolfo MARCELINO TITER 2019-11-12 19:40:00 Leo Shari Nunez Meth odist Adolfo CT CERVICAL SPINE WO 2019-11-12 18:12:54 Shari Baileyist CONTRAST [facility] CT MAXILLOFACIAL WO 2019-11-12 18:09:40 Shari Bailey Amish CONTRAST [facility] CT HEAD WO CONTRAST 2019-11-12 18:09:19 Leo Shari Nunez Amish Adolfo XR CHEST 1 VW PORTABLE 2019-11-12 17:35:36 Shari Bailey on Amish Adolfo HC COMPLETE BLD COUNT 2019-11-12 17:04:00 Shari Bailey Amish W/AUTO DIFF [facility] COMPREHENSIVE METABOLIC 2019-11-12 17:04:00 Shari Bailey Amish PANEL [facility] ALCOHOL LEVEL, BLOOD 2019-11-12 17:04:00 Shari Bailey Amish Adolfo KEPPRA (LEVETIRACETAM) 2019-11-12 17:04:00 Shari Bailey on Amish LEVEL Adolfo ESTIMATED GFR 2019-11-12 17:04:00 Shari Bailey Meth odist Adolfo URINE CULTURE 2019-11-12 14:44:00 Keanu Flores Meth odist URINALYSIS SCREEN AND 2019-11-12 14:44:00 Keanu Flores n Amish MICROSCOPY, WITH REFLEX TO CULTURE HCG QUALITATIVE, URINE 2019-11-12 14:44:00 Keanu Flores on Amish SCREEN URINE DRUGS OF ABUSE 2019-11-12 14:44:00 Keanu Flores Amish SCREEN Plan of Care Planned Activity Planned Date Details Comments Source Future Scheduled Test 2020-01-14 INFLUENZA VACCINE [place] [facility] 00:00:00 [code = INFLUENZA VACCINE] Future Scheduled Test 2010 Screening for [place] [facility]ish 00:00:00 malignant neoplasm of cervix (procedure) [code = 060078434] Future Scheduled Test 2005 COVID-19 VACCINE [place] Amish 00:00:00 (#1) [code = COVID-19 VACCINE (#1)] Future Appointment 2020-07-02 Marilee Regan MD, [address] capri Amish 07:30:00 [facility]; [address], [place] [address] Future Appointment 2020-07-02 Marilee Regan MD, [address] Amish 07:30:00 [facility]; [address], [place] [address] Encounters Start End Encounter Admission Attending Care Care Encounter Source Date/Time Date/Time Type Type Clinicians Facility Department ID 2020-05-30 2020-05-30 Ancillary Room, Joann [id number] 14:15:07 15:15:07 Visit EmilyStacyDiana Keiko [id number] [facility] [id number] 2020-05-15 2020-05-15 Outpatient MARILEE REGAN [facility] [id number] [place] 00:00:00 00:00:[address] 2020-05-02 2020-05-02 Emergency [facility] [id number] [place] 00:00:00 00:00:00 DANIEL [address] 2020-04-26 2020-04-26 Outpatient RICHARD HUIZAR [facility] [id number] [place] 00:00:00 00:00:[address] 2020-04-04 2020-04-07 Inpatient NINFA, [facility] 064 [id number] [place] 00:00:00 00:00:00 YAHYA [address] 2020-03-30 2020-03-30 Outpatient RICHARD HUIZAR [facility] [id number] [place] 00:00:00 00:00:[address] 2020-03-27 2020-03-27 Outpatient GAYE [facility] [id number] [place] 00:00:00 00:00:[address] 2020-03-12 2020-03-15 Inpatient RICHARD HUIZAR [facility] 016 [id number] [place] 00:00:00 00:00:[address] 2020-02-16 2020-02-16 Outpatient RICHARD HUIZAR [facility] [id number] [place] 00:00:00 00:00:[address] 2019-11-12 2019-11-15 Inpatient LIANA, [facility] [id number] [place] 00:00:00 00:00:00 ADRIAN [address] Results Test Description Test Time Test Comments Results Result Comments Source Urine culture 2020-05-03 19:14:09 Test Item Value Reference Range Interpretation Comme nts Urine culture isolate Mixed prem <=10-3 Specimen InformationSpecimen (test code = 49119-0) col/cc Source : UrineSpecimen Site: Clean catch [place] MethodistCOVID-19 qualitative [id number] 22:57:50 Test Item Value Reference Range Interpretation Comments Interpretation (test Negative results do code = 8292494) not preclude 2019-nCoV infection and should not be used as the sole basis for treatment or other patient management decisions. Negative results must be combined with clinical observations, patient history, and epidemiological information. COVID-19 qualitative Not-Detected Not-Detected PCR result (test code = 83945-2) COVID-19 qualitative See link below for C ase Number: PCR (test code = PDF Lab Report [id number]) [place] MethodistUrinalysis screen and microscopy, with reflex to culture 2020-05-02 17:03:04 Test Item Value Reference Range Interpretation Comments Specimen site (test code = Clean catch 3877266) Color, UA (test code = 5778-6) Yellow Appearance, UA (test code = Clear 5767-9) Specific gravity, UA (test code = 1.035 1.001-1.035 5811-5) pH, UA (test code = 5803-2) 5.0 5.0-8.5 Protein, UA (test code = 54854-2) Negative Negative Glucose, UA (test code = 19455-9) Negative Negative Ketones, UA (test code = 2514-8) Trace Negative A Bilirubin, UA (test code = Negative Negative 5770-3) Blood, UA (test code = 5794-3) Negative Negative Nitrite, UA (test code = 5802-4) Negative Negative Urobilinogen, UA (test code = <2.0 <2.0 77966-5) Leukocyte esterase, UA (test code Small Negative A = 5799-2) Epithelial cells, UA (test code = 6 /HPF 5787-7) WBC, UA (test code = 5821-4) 10 0- 4 /HPF H RBC, UA (test code = 46287-7) 2 0- 5 /HPF Bacteria, UA (test code = Few None seen 31817-4) Yeast, UA (test code = 21939-5) None seen Yeast with pseudohyphae, UA (test None seen code = 63208-2) Lab Interpretation (test code = Abnormal 56213-8) Nunez [facility] qualitative, serum [id number] 16:18:10 Test Item Value Reference Range Interpretation Comments hCG qualitative, Negative Sensitivity of HCG test: serum (test code = 25 mIU/mL 2117-8) [facility] [id number] 16:11:00 Test Item Value Reference Range Interpretation Comments Sodium (test code = 2951-2) 140 135- 148 mEq/L Potassium (test code = 2823-3) 3.7 3.5- 5.0 mEq/L Chloride (test code = 2075-0) 103 98- 112 mEq/L CO2 (test code = 2027-9) 25 24- 31 mEq/L Anion gap (test code = 26055-3) 12@ANIO 7- 15 mEq/L BUN (test code = 3094-0) 13 mg/dL 6-20 Creatinine (test code = 2160-0) 0.70 mg/dL 0.5-0.9 Glucose (test code = 2345-7) 93 mg/dL 65-99 Calcium (test code = 06848-2) 9.6 mg/dL 8.3-10.2 Nunez MethodistEstimated [id number] 16:11:00 Test Item Value Reference Range Interpretation Comments Estimated GFR (test >=90 mL/min/1.73 m2 Haider wiggins Units code = 5488) InterpretationG 1 >=90 Normal or highG2 60-89 Mildly rkmzuxxcmL2p 45-59 Mildly to mode rately lguyqggrnK2r 30-44 Moderately to severely decreasedG4 15-29 Severely decre asedG5 <15 Kidn ey failureThe eGFR was calculated alyssa fortune the Chronic Kidney Disease Epidemiology Co llaboration (CKD-EPI) equat ion. Interpretation is based on recommendations of the National Kidney Foundation-Kidn ey Disease Outcomes Qualit y Initiative (NKF-KDOQI) pub lished in 2014. Nunez MethodistCBC with platelet and [id number] 16:06:29 Test Item Value Reference Range Interpretation Comments WBC (test code = 18107-1) 10.69 4.50- 11.00 k/uL RBC (test code = 67498-0) 4.71 m/uL 4.2-5.5 HGB (test code = 718-7) 13.5 g/dL 12-16 HCT (test code = 4544-3) 42.4 % 37-47 MCV (test code = 787-2) 90.0 fL 82-100 MCH (test code = 785-6) 28.7 pg 27-34 MCHC (test code = 786-4) 31.8 g/dL 31-37 RDW - SD (test code = 41.3 fL 37-55 63429-5) MPV (test code = 28321-6) 10.0 fL 8.8-13.2 Platelet count (test code 260 150- 400 k/uL = 54311-9) Nucleated RBC (test code 0.00 /100 WBC = 65869-7) Neutrophils (test code = 65.7 % 39-69 34821-3) Lymphocytes (test code = 24.7 % 25-45 L 12610-4) Monocytes (test code = 7.3 % 0-10 56433-8) Eosinophils (test code = 1.3 % 0-5 86869-8) Basophils (test code = 0.7 % 0-1 78031-0) Immature granulocytes 0.3 % 0-1 "Immat ure (test code = 63436-7) granul ocytes" (promyelocytes, myelocytes, metamyelocytes) Lab Interpretation (test Abnormal code = 96029-1) [place] MethodistSmear [id number] 16:06:29 Test Item Value Reference Range Interpretation Comments Platelet slide review (test code Sana adequate = 35121-4) Enlarged platelets (test code = Moderate A 47393-4) Lab Interpretation (test code = Abnormal 70573-7) [place] MethodistCT Head Wo [id number] 15:54:03Hm Interface, Radiology Results 05/02/2020 3:57 PM [...] IMPRESSION:1. No CT evidence of acute intracranial abnormality.[id number] Amish Epilepsy/Seizure [id number] 09:01:11EPILEPSY MONITORING UNIT REPORT Patient Name: Heather [...] left frontal central temporal region. ICD-10 Code: V352Ayinuzx MethodistEpilepsy/Seizure monitoring 2020-04-23 09:00:05EPILEPSY MONITORING UNIT REPORT [...] left frontal central temporal region. ICD-10 Code: S746Dnikgrk Amish Epilepsy/Seizure [id number] 08:55:34EPILEPSY MONITORING UNIT REPORT Patient Name: Heather [...] left frontal central temporal region. ICD-10 Code: K437Jflaaxe Amish Epilepsy/Seizure [id number] 08:45:34EPILEPSY MONITORING UNIT REPORT Patient Name: Heather [...] left frontal central temporal region. ICD-10 Code: W920Pnfznhi MethodistDouble-stranded DNA (dsDNA) antibodies, [id number] 13:15:26 Test Item Value Reference Range Interpretation Comments DNA Ab screen (test code = 1297) Not Detected Not-Detected Enrique MethodistRibonucleic antibody (PRODUCTION CONTROL EXPERT)2020-04-06 18:25:47 Test Item Value Reference Range Interpretation Comments Ribonucleic antibody <0.2 0.0- 0.9 AI (PRODUCTION CONTROL EXPERT) (test code = 91136-0) Ribonucleic antibody Negative AI Anti-ri bonucleic (PRODUCTION CONTROL EXPERT) interp (test protein ( anti-PRODUCTION CONTROL EXPERT) code = 5267) antibodies are typically found in patients with m ixed connective tiss ue disease, but ca n also be seen in christin ents with systemic l upus erythematosus ( SLE) or systematic scle rosis. Enrique CruzistJo-1 [id number] 18:25:46 Test Item Value Reference Range Interpretation Comments Bernarda-1 antibody (test <0.2 0.0- 0.9 AI code = 50008-0) Bernarda-1 antibody interp Negative Anti-Bernarda -1 antibody is (test code = 5263) predomina ntly found in patients with polymyositis, e specially for those with interstitial pu lmonary fibrosis. It ca n also be found in patien ts with dermatomyositis . Enrique CruzistScl-70 [id number] 18:25:46 Test Item Value Reference Range Interpretation Comments Scleroderma SCL-70 Ab <0.2 0.0- 0.9 AI (test code = 55866-0) Scl-70 antibody interp Negative AI Anti- Scl-70 (test code = 5268) (topoisom erase I) antibodies are found in patients with s ystemic sclerosis (SSc or scleroderma), a nd have been reported t o be predictive of d iffuse cutaneous invol vement. Anti-Scl-70 ant ibodies may also be pre sent in patients with s ystemic lupus erythemat osus (SLE). Enrique CruzistSS-A [id number] 18:25:46 Test Item Value Reference Range Interpretation Comments Sjogren's SS-A <0.2 0.0- 0.9 AI antibody (test code = 66169-2) SS-A antibody interp Negative AI SS-A an tibody is (test code = 2235) sensitive for Sjogren's syndrome, but m ay also be positive with s ystemic lupus erythemat osus (SLE), and syst emic sclerosis. [place] MethodistCentromere [id number] 18:25:45 Test Item Value Reference Range Interpretation Comments Centromere antibody <0.2 0.0- 0.9 AI (test code = 8068-9) Centromere antibody Negative AI Anti-sae tromere interp (test code = antibodi es are found 62265-2) in patients wit h systemic sclero sis (SSc or sclerod sb), especially for those with limited cu taneous or CREST syndro me. Anti-centromere antibodies may also be found in patien ts with other rheumatic or connective tiss ue diseases. [place] MethodistSmith [id number] 18:25:45 Test Item Value Reference Range Interpretation Comments Matthew antibody (test <0.2 0.0- 0.9 AI code = 85338-0) Matthew antibody Negative AI Anti-Matthew an tibodies interp (test code = occurs i n 30-35% of 5269) systemic lupus erythematosus ( SLE) cases, but is v gilbert specific for SL E. It may also present in mixed connective-tiss ue disease (MCTD). [place] MethodistSS-B [id number] 18:25:44 Test Item Value Reference Range Interpretation Comments Sjogren's SS-B 0.6 0.0- 0.9 AI antibody (test code = 3001) SS-B antibody interp Negative AI SS-B/La antibody is seen (test code = 2237) in patien ts with Sjogren syndrome, but m ay also be positive with s ystemic lupus erythemat osus (SLE), and syst emic sclerosis. Nunez MethodistKeppra (Levetiracetam) [id number] 17:50:04 Test Item Value Reference Interpretation Comments Range Levetiracetam 23 ug/mL 12-46 INTERPRETIVE I NFORMATION: (test code = Keppra 4478-4) (Levetiracetam) Therapeutic Range: 12-46 u g/mL Toxic: Not wel l EstablishedPhar macokinetics of levetiracetam a re affected by renal function. Adverse effects may include andi nolence, weakness, heada justus and vomiting.This l evetiracetam (Keppra) immuno assay uses the [employer] reagents, which has known cross -reactivity with the drug brivar acetam (Briviact) and may report inaccurate resu lts. Patients transitioning f rom levetiracetam t o brivaracetam or those who ar e using both medications alejandra uld not monitor drug concentrat ions with the [employer] assay. These patients should be monitored using a validat ed chromatographic methodology that distinguis hes between drugs to determ ine drug concentrations. Performed By: [facility] [address] [place], [place] [address]Jsbuajjstl Director: MD Enrique Sidhu [facility] [id number] 17:38:16 Test Item Value Reference Range Interpretation Comments POC glucose (test code = 102 mg/dL 65-99 H Ope rator Name: 14589-3) Gerber Coulter ice ID: [id number] Lab Interpretation (test Abnormal code = 37907-5) Enrique PiedraHomocystine, [id number] 18:55:23 Test Item Value Reference Range Interpretation Comments Homocysteine (test 6.7 umol/L 0-15 The risk for coronary code = 03405-7) vascular dis ease increases progressively w ith homocysteine concentration. A 3.4 times greater r isk is associated with a homocysteine concentration o f greater than 15.8 umol/L as carlin red to a concentration below 14.1 umol/L. S pecimen is slightly hem olyzed. Interpret resu lts accordingly. Enrique MethodistPotassium jskuz4643-86-94 18:49:08 Test Item Value Reference Range Interpretation Comments Potassium (test code = 2823-3) 3.7 3.5- 5.0 mEq/L Nunez MethodistVitamin D 25 hydroxy ptyhs1482-35-61 15:53:37 Test Item Value Reference Range Interpretation [...] hods. Lab Interpretation Abnormal (test code = 89841-5) Enrique MethodistEC 12 yfhu4598-68-62 13:34:29 Test Item Value Reference Range Interpretation Comments Ventricular rate (test 77 code = 253) Atrial rate (test code 77 = 255) MS interval (test code 154 = 266) QRSD [...] 12-NOV-2019 21:10,-No significant change was found- Enrique MethodistEEG (routine)2020-04-05 11:50:53VIDEO-EEG RECORDING AWAKE & ASLEEP. [...] are captured. Jojo Cruz MD ICD-10 Code: G659Slfwlhc MethodistSyphilis total xwdudayt3706-96-69 10:02:20 Test Item Value Reference Range Interpretation Comments Syphilis total Non-reactive Non-reactive No serologica l antibody (test evidence of code = 6194) syphilis infect ion. LUIS MIGUEL (test code = Unable to perform LUIS MIGUEL) testing, specimen is _HEMOLYZED___. Recollect requested for __K__ (tests). __[facility] (name/location) notified by ___JT_ (tech ID) at __ 04/05/2020 07:01 __ (date/time). Credit issued.Unable to perform testing, specimen is _HEMOLYZED___. Recollect requested for _HCYT (tests). __[facility] (name/location) notified by ___JT_ (tech ID) at __ 04/05/2020 09:26 __ (date/time). Credit issued. Nunez MethodistRheumatoid znxwif7214-79-32 09:01:34 Test Item Value Reference Range Interpretation Comments Rheumatoid factor (test <10 0- 13 IU/mL code = 69479-3) LUIS MIGUEL (test code = LUIS MIGUEL) Unable to perform testing, specimen is _HEMOLYZED___. Recollect requested for __K__ (tests). __[facility] (name/location) notified by ___JT_ (tech ID) at __ 04/05/2020 07:01 __ (date/time). Credit issued. Enrique PiedraVitamin B12 yjsgg9921-71-64 06:58:42 Test Item Value Reference Range Interpretation Comments Vitamin B12 (test 739 pg/mL 211-946 Significan t overlap code = 2132-9) exists betwee n normal and deficiency states.However, most patients with deficiencies wi ll have Serum B12 <2 00 pg/mL. Enrique MethodistFolate chanx2772-18-49 06:58:42 Test Item Value Reference Range Interpretation Comments Folate (test code = 2284-8) 14.0 ng/mL 4.8-24.2 Enrique PiedraMagnesium hhjhl3983-86-72 06:52:05 Test Item Value Reference Range Interpretation Comments Magnesium (test code = 76268-2) 1.8 mg/dL 1.6-2.6 Enrique PiedraT4, haix5292-43-16 06:52:05 Test Item Value Reference Range Interpretation Comments T4, free (test code = 3024-7) 1.1 ng/dL 0.9-1.7 Enrique PiedraThyroid stimulating oyxbtqx4263-69-83 06:52:05 Test Item Value Reference Range Interpretation Comments TSH (test code = 3016-3) 1.26 0.27- 4.20 uIU/mL Enrique CruzLkgsksfmlH73921-72-44 06:52:05 Test Item Value Reference Range Interpretation Comments T3 (test code = 3053-6) 89 ng/dL 80-200 Enrique PiedraC-reactive fnbjfyw7405-93-57 06:52:05 Test Item Value Reference Range Interpretation Comments CRP (test code = 1988-) <0.30 0-0.5 Enrique PiedraHIV Ag/Ab odeuojippsz0559-23-18 06:48:46 Test Item Value Reference Range Interpretation Comments HIV Ag/Ab combination (test code Non-reactive Non-reactive = 5299) Enrique Akhtaredimentation ttss6049-46-67 22:23:01 Test Item Value Reference Range Interpretation Comments Sedimentation rate (test code = 6 0- 20 mm/hr 21272-1) Enrique Bowman drugs of abuse graypz1108-63-10 21:28:59 Test Item Value Reference Interpretation Comments Range Amphetamine screen, Negative urine (test code = 3349-8) Barbiturate screen, Negative urine (test code = 3377-9) Benzodiazepine Positive A screen, urine (test code = 3390-2) Cocaine screen, Negative urine (test code = 3397-7) Methadone Negative metabolite (EDDP), urine (test code = 45897-5) Opiates screen, Negative urine (test code = 3879-4) Oxycodone screen, Negative urine (test code = 04919-2) Phencyclidine Negative screen, urine (test code = 3936-2) Tricyclic screen, Negative urine (test code = 51770-9) Cannabinoid screen, Negative Drug scr een minimum [...] ired. Lab Interpretation Abnormal (test code = 10492-8) Enrique PiedraComprehensive metabolic toetm0829-75-98 21:27:39 Test Item Value Reference Range Interpretation Comments Sodium (test code = 138 135- 148 mEq/L 2951-2) Potassium (test code = 3.6 3.5- 5.0 mEq/L 2823-3) Chloride (test code = 105 98- 112 mEq/L 2075-0) CO2 (test code = 2027-9) 22 24- 31 mEq/L L Anion gap (test code = 11@ANIO 7- 15 mEq/L 04735-2) BUN (test code = 3094-0) 7 mg/dL 6-20 Creatinine (test code = 0.46 mg/dL 0.5-0.9 L 2160-0) Glucose (test code = 96 mg/dL 65-99 2345-7) Calcium (test code = 9.2 mg/dL 8.3-10.2 01673-1) Protein (test code = 7.1 g/dL 6.3-8.3 -[place] n 2885-2) 4.6-7.0 g/dL1 week 4.4-7 .6 g/dL7 months-1y ear 5.1-7 .3 g/dL1-2 years 5.6-7 .5 g/dL>3 years 6.0-8 .0 g/oQ49-263 6.3-8 .3 g/dL Albumin (test code = 3.8 g/dL 3.5-5 1751-7) A/G ratio (test code = 1.2 0.7-3.8 1759-0) Alkaline phosphatase 64 U/L 35-104 (test code = 6768-6) AST (test code = 1920-8) 20 U/L 10-35 ALT (test code = 1742-6) 14 U/L 5-50 Total bilirubin (test 0.4 mg/dL 0-1.2 code = 1974-2) Lab Interpretation (test Abnormal code = 70556-5) [place] MethodistLactic acid level, SEPSIS - Now and repeat 2x every 3 hours 2020-04-04 21:27:38 Test Item Value Reference Range Interpretation Comments Lactic acid (test code = 95146-6) 1.1 mmol/L 0.5-2.2 [place] MethodistPhosphorus iajji8661-25-35 21:27:37 Test Item Value Reference Range Interpretation Comments Phosphorus (test code = 2777-1) 3.7 mg/dL 2.4-4.5 [facility] sfekaqyp3887-13-20 21:21:43 Test Item Value Reference Range Interpretation Comments WBC (test code = 77690-5) 7.66 4.50- 11.00 k/uL RBC (test code = 05461-0) 4.23 m/uL 4.2-5.5 HGB (test code = 718-7) 12.2 g/dL 12-16 HCT (test code = 4544-3) 36.8 % 37-47 L MCV (test code = 787-2) 87.0 fL 82-100 MCH (test code = 785-6) 28.8 pg 27-34 MCHC (test code = 786-4) 33.2 g/dL 31-37 RDW - SD (test code = 00251-0) 40.3 fL 37-55 MPV (test code = 63096-6) 10.1 fL 8.8-13.2 Platelet count (test code = 247 150- 400 k/uL 53780-6) Nucleated RBC (test code = 0.00 /100 WBC 75327-8) Lab Interpretation (test code = Abnormal 74682-8) Nunez MethodistProlactin ttzaz6480-08-20 21:11:11 Test Item Value Reference Range Interpretation Comments Prolactin (test code = 2842-3) 13 ng/mL 5-23 [place] MethodistCRITICAL JRTS5034-08-37 18:48:10BMax gleason MD 04/20/2020 3:37 PMCritical CarePerformed by: Lila ByersAuthorized by: Max Ron MD Critical care provider statement: Critical care time (minutes): 20 Critical care was necessary to treat or prevent imminent or life- threatening deterioration of the following conditions: METAL TESTER failure or compromise Critical care was time [...] from another provider.: Hawa PiedraPET Brain Metabolic Ptbb7043-75-64 14:42:07Hm Interface, Radiology Results - 03/30/2020 2:45 [...] interictal study.2.Diffuse cerebellar hypometabolism suggests a pharmacologic effect.[facility]-[id number] MethodistContinuous EEG npflzpswme0863-11-37 17:34:53CONTINUOUS VIDEO-EEG MONITORING REPORT Patient Name: Heather [...] No seizures occurred. ICD-10 Code: R56.9[place] MethodistANA tcxpp8515-05-47 13:12:21 Test Item Value Reference Range Interpretation Comments MARCELINO titer (test code = 72710-2) 1:160 Not-Detected A MARCELINO pattern (test code = 33963-6) Homogeneous Not-Detected A Lab Interpretation (test code = Abnormal 33373-0) [place] YrjfjmcjbDKS7674-13-38 13:08:33 Test Item Value Reference Range Interpretation Comments MARCELINO screen (test code Positive Negative A Test p erformed using = 550) NOVA Lite DAPI MARCELINO kit (Indirect Immunofluoresce nce Assay) for Anti -Nuclear Antibody on HAM-IT QUANTA-Lyser 16 0 Analyzer. Lab Interpretation Abnormal (test code = 94582-0) Nunez MethodistManual xnkmvnxrkhdv9109-70-80 08:57:11 Test Item Value Reference Range Interpretation Comments Manual differential (test code = PERFORMED 55460-7) Neutrophils (test code = 51.0 % 39-69 68557-1) Lymphocytes (test code = 34.0 % 25-45 46734-8) Monocytes (test code = 45293-0) 13.0 % 0-10 H Eosinophils (test code = 2.0 % 0-5 47130-8) Basophils (test code = 76079-3) 0.0 % 0-1 Metamyelocytes (test code = 0 % 740-1) Promyelocytes (test code = 0 % 783-1) Platelet slide review (test code Sana adequate = 58073-4) Anisocytosis (test code = 702-1) Moderate Ovalocytes (test code = 774-0) Moderate Enlarged platelets (test code = Moderate A 16020-6) Lab Interpretation (test code = Abnormal 24233-3) Nunez MethodistContinuous EEG jqjptizwcc4351-85-48 07:42:19CONTINUOUS VIDEO- EEG MONITORING REPORT Patient Name: [...] independently. No seizures occurred. ICD-10 Code: R56.9[place] [facility] Continuous EEG tauathhdnt7082-36-17 07:19:24 CONTINUOUS VIDEO-EEG MONITORING REPORT Patient Name: [...] regions independently. No seizures occurred. ICD-10 Code: R56.9[facility] MethodistEEG (routine) - Baseline BWI5965-95-37 06:43:32EEG RECORDING AWAKE & ASLEEP - Baseline [...] with the above findings. Toya Rojo MethodistFerritin spviz3691-20-98 07:54:01 Test Item Value Reference Range Interpretation Comments Ferritin level (test code = 2276-4) <13 13-150 A Lab Interpretation (test code = Abnormal 41892-6) Enrique MethodistTotal iron binding fluvonvq9960-31-44 07:50:12 Test Item Value Reference Range Interpretation Comments Iron level (test code = 2498-4) 20 ug/dL 37-145 L Iron binding capacity (test code = 335 ug/dL 363-818 4237-7) % Saturation (test code = 2502-3) 6.0 % 15-38 L Lab Interpretation (test code = Abnormal 42082-2) Enrique CruzistCortisol level, fqvunc8057-29-35 20:48:37 Test Item Value Reference Range Interpretation Comments Cortisol, random 2 ug/dL Reference R anges are not (test code = 2143-6) establi shed for non-timed Cortisol levels .Reference Range for Timed Cortisol: 6 - 10 AM 6 - 18 ug/dl 4 - 8 PM 3 - 11 ug/ dl [facility], total (CPK)2019-11-12 20:42:35 Test Item Value Reference Range Interpretation Comments Creatine kinase (test code = 2157-6) 56 U/L 26-192 [place] MethodistCT Cervical Spine Wo Tuyxxqcw8409-28-32 18:17:20Hm Interface, Radiology Results 11/12/2019 6:20 PM [...] fracture or subluxation identified in the cervical spine.[facility]-[id number] MethodistCT Maxillofacial Wo Fpenpgwz4832-18-30 18:15:46Hm Interface, Radiology Results 11/12/2019 6:18 PM [...] soft tissues are unremarkable.The paranasal sinuses are clear.[facility]-[id number] R. [facility] Alcohol level, xecym6223-30-65 18:06:03 Test Item Value Reference Range Interpretation Comments Alcohol percent None Detected % Normal (test code = None Detec tedLegal 5643-2) Intoxication in [place] 80 mg/dL (0.08% ) - Whole BloodToxi c Concentration 200 mg/dL (0.2%)Potential ly Fatal 350 - 500 mg/dL (0.35 - 0 .5%) [place] MethodistXR Chest 1 Vw Mppmsock3710-54-80 17:37:03Hm Interface, Radiology Results 11/12/2019 5:40 PM CDTEXAMINATION: XR CHEST 1 VW PORTABLECLINICAL HISTORY: SOBXR CHEST 1 VW PORTABLE images are submittedCOMPARISON: NONEFINDINGS:The cardiac silhouette is normal in size. The pulmonary vasculature is within normal limits. The lung zones have no focal area of consolidation. There is no pleural effusion or pneumothorax.IMPRESSION:1. Thereis no acute cardiopulmonary disease.STJO-[id number] MethodisthCG qualitative, urine uwhrws4881-25-01 15:26:18 Test Item Value Reference Range Interpretation Comments hCG qualitative, Negative Sensitivity of HCG test: urine (test code = 25 mIU/mL 2106-3) [place] MethodistRPR Cbxeeuxwifg4353-78-13 16:47:08 Test Item Value Reference Range Interpretation [...] = 06-14-2020 N Expiration Dt) Thyroid Stimulating Mybepkw4054-42-20 06:31:44 Test Item Value Reference Range Interpretation Comments TSH (test code = TSH) 3.830 mIU/mL 0.270-4.200 Lipid Gftal5134-78-33 06:24:40 Test Item Value Reference Range Interpretation Comments Cholesterol Total 152 mg/dL 0-200 RISK OF HE ART (test code = DISEASEPublishe d by Cholesterol Total) [employer] Marcelino lyte Optimal Borderl ine [...] LDL/HDL Ratio=L DL Calc/HDL Chol Urine Drug Jrzwef9543-30-19 21:53:06 Test Item Value Reference Range Interpretation [...] if desired . Urinalysis with Culture, if avdjarigm4351-68-41 21:40:53 Test Item Value Reference Range Interpretation [...] Indicated Not Indicated Micro Ind?) Comprehensive Metabolic Ryvpt1553-90-25 21:34:15 Test Item Value Reference Range Interpretation [...] = A/G 1.6 ratio N Ratio) Alcohol Ixxqe9268-67-73 21:34:15 Test Item Value Reference Range Interpretation Comments Ethanol Level (test <0.00 g/dL 0.00-0.01 Intoxica vandana 0.080 g/dL code = Ethanol or more Level) Ethanol Inst (test <0 N code = Ethanol Inst) Comprehensive Metabolic Zsnhb2321-76-12 21:34:15 Test Item Value Reference Range Interpretation [...] National Kidney Foundation, http://nkdep.ni h.gov Comprehensive Metabolic Khkqn6041-90-93 21:34:15 Test Item Value Reference Range Interpretation [...] Foundation, http://nkdep.ni h.gov Complete Blood Count with Vxtnylgtmmud1617-52-62 21:15:24 Test Item Value Reference Range Interpretation [...] code = IPF) 0 % N Automated Ykyakpkmbrjp4349-99-56 21:15:24 Test Item Value Reference Range Interpretation Comments Neutro Auto (test code = Neutro 54.3 % 36.0-70.0 Auto) Lymph Auto (test code = Lymph Auto) 32.3 % 12.0-44.0 Cottle Auto (test code = Cottle Auto) 11.1 % 0.0-11.0 H Eos, Auto (test code = Eos, Auto) 1.3 % 0.0-7.0 Basophil Auto (test code = Basophil 0.7 % 0.0-2.0 Auto) Neutro Absolute (test code = Neutro 6.2 x10 1.6-7.4 Absolute) Lymph Absolute (test code = Lymph 3.71 x10 .50-4.60 Absolute) Cottle Absolute (test code = Cottle 1.28 x10 .00-1.20 H Absolute) Eos Absolute (test code = Eos 0.15 x10 0.00-0.74 Absolute) Baso Absolute (test code = Baso 0.08 x10 0.00-0.21 Absolute) IG Teerg5889-40-26 21:15:24 Test Item Value Reference Range Interpretation Comments IG (test code = IG) 0.3 % 0.0-5.0 IG Abs (test code = IG Abs) 0 x10 N HCG Qualitative Objpk6973-29-94 20:45:17 Test Item Value Reference Range Interpretation [...] 72 hours. Lot # (test code = [id number] N Lot #) Expiration Dt (test 2020-12-12 N code = Expiration Dt) Neg Control (test Negative code = Neg Control) Pos Control (test Positive code = Pos Control) Internal QC (test Acceptable code = Internal QC) RPR Cjkxcgqmelk4018-15-05 12:07:58 Test Item Value Reference Range Interpretation [...] = 04-14-2020 N Expiration Dt) Thyroid Stimulating Licjdwz0123-77-67 07:59:52 Test Item Value Reference Range Interpretation Comments TSH (test code = TSH) 0.717 mIU/mL 0.270-4.200 Lipid Olynp9834-78-93 07:52:46 Test Item Value Reference Range Interpretation Comments Cholesterol Total 141 mg/dL 0-200 RISK OF HE ART (test code = DISEASEPublishe d by Cholesterol Total) [employer] Marcelino lyte Optimal Borderl ine [...] LDL/HDL Ratio=L DL Calc/HDL Chol Urine Drug Gkevnh7434-10-39 15:27:40 Test Item Value Reference Range Interpretation [...] matory test if desired . Comprehensive Metabolic Ucajf4663-97-83 15:15:20 Test Item Value Reference Range Interpretation [...] A/G 1.9 ratio N Ratio) Comprehensive Metabolic Diulh1275-56-70 15:15:20 Test Item Value Reference Range Interpretation [...] the National Kidney Foundation, http://nkdep.ni h.gov Alcohol Ndlnq5522-80-77 15:15:20 Test Item Value Reference Range Interpretation Comments Ethanol Level (test <0.00 g/dL 0.00-0.01 Intoxica vandana 0.080 g/dL code = Ethanol or more Level) Ethanol Inst (test <0 N code = Ethanol Inst) Comprehensive Metabolic Ttgdd5431-10-73 15:15:20 Test Item Value Reference Range Interpretation [...] the National Kidney Foundation, http://nkdep.ni h.gov Urinalysis Oomebqgstat4488-50-67 15:11:20 Test Item Value Reference Range Interpretation Comments UA WBC (test code = UA WBC) 6-10 0-5 A UA RBC (test code = UA RBC) 0-5 0-5 UA Bacteria (test code = UA Moderate A Bacteria) UA Squam Epithelial (test code = UA TNTC A Squam Epithelial) UA Mucous (test code = UA Mucous) Few A Urinalysis with Microscopic if nmbxpmjam8335-77-81 14:42:58 Test Item Value Reference Range Interpretation [...] GL_SJM_UA_MICRO _IN D Complete Blood Count with Tewwxndwgdqr7563-77-14 14:37:26 Test Item Value Reference Range Interpretation [...] code = IPF) 0 % N Automated Hnejedddyxuj7423-82-29 14:37:26 Test Item Value Reference Range Interpretation Comments Neutro Auto (test code = Neutro 65.8 % 36.0-70.0 Auto) Lymph Auto (test code = Lymph Auto) 25.5 % 12.0-44.0 Cottle Auto (test code = Cottle Auto) 7.3 % 0.0-11.0 Eos, Auto (test code = Eos, Auto) 0.7 % 0.0-7.0 Basophil Auto (test code = Basophil 0.5 % 0.0-2.0 Auto) Neutro Absolute (test code = Neutro 6.0 x10 1.6-7.4 Absolute) Lymph Absolute (test code = Lymph 2.34 x10 .50-4.60 Absolute) Cottle Absolute (test code = Cottle .67 x10 .00-1.20 Absolute) Eos Absolute (test code = Eos 0.06 x10 0.00-0.74 Absolute) Baso Absolute (test code = Baso 0.05 x10 0.00-0.21 Absolute) IG Mxxnz2737-19-97 14:37:26 Test Item Value Reference Range Interpretation Comments IG (test code = IG) 0.2 % 0.0-5.0 IG Abs (test code = IG Abs) 0 x10 N HCG Qualitative Tatky3553-48-94 14:34:08 Test Item Value Reference Range Interpretation [...] 72 hours. Lot # (test code = [id number] N Lot #) Expiration Dt (test 2020-03-14 N code = Expiration Dt) Neg Control (test Negative code = Neg Control) Pos Control (test Positive code = Pos Control) Internal QC (test Acceptable code = Internal QC) DRUGS OF ABUSE SCREEN [id number] 17:11:00 Test Item Value Reference Range Interpretation [...] = [place]) concentrati on: 300 ng/mL URINALYSIS [id number] 17:08:00 Test Item Value Reference Range Interpretation [...] (test code = MOD NONE BACU) URINALYSIS [id number] 17:00:00 Test Item Value Reference Range Interpretation [...] (test code = NONE BACU) HCG SERUM [id number] 16:52:00 Test Item Value Reference Range Interpretation Comments HCG SERUM QUAL (test code = HCGQL) NEGATIVE NEGATIVE - CT HEAD/BRAIN W/O [id number] 16:51:00 FAX: Theresa Fields MD [place]: St: REG Name: HEATHER HOPE [facility] : 1990 Age/S: 28/F [address] [facility] Unit: [id number] [place]: [place] [id number] Acct: [id number] Dis Date: Status: REG ER PHONE #: [phone] Exam Date: 02/23/2019 1642 FAX #: [phone] Reason: SEIZURE EXAMS: CPT CODE: [id number] CT HEAD/BRAIN W/O CONT 45614 Dictation location: U19. CT HEAD WITHOUT CONTRAST. [...] MD Technologist: HEATHER DICKSON Trnscrd Dt/Tm: 02/23/2019 (3341) t.SDR.SP17 Orig Print D/T: S: 02/23/2019 (8944 PAGE 1 Signed ReportBASIC METABOLIC [id number] 16:31:00 Test Item Value Reference Range Interpretation [...] CA) 8.8 mg/dl 8.0-10.5 N BASIC METABOLIC [id number] 16:26:00 Test Item Value Reference Range Interpretation [...] code = CA) mg/dl 8.0-10.5 CBC W/AUTO [id number] 16:15:00 Test Item Value Reference Range Interpretation [...] 3-60 N code = VLDL) RAPID PLASMA [id number] 10:31:00 Test Item Value Reference Range Interpretation Comments RAPID PLASMA REAGIN (test code = Nonreactive Nonreactive RPR) GLYCOSYLATED HEMOGLOBIN (HA1C)2018-12-07 10:05:00 Test Item Value Reference Range Interpretation Comments GLYCOSYLATED HEMOGLOBIN (HA1C) 5.8 % TOT HB 4.5-6.2 N (test code = GLYHGB) [id number] 15:31:00 Test Item Value Reference Range Interpretation Comments ACETAMINOPHEN (test < 1 MCG/ML 10-30 L Acetamin ophen is code = ACET) possibly toxic at levels of: 1. m ore than 150 MCG/ML 4 hours post kaylin stion. 2. more than 5 0 MCG/ML 12 hours post ingestion. [id number] 15:31:00 Test Item Value Reference Range Interpretation Comments SALICYLATE (test code = < 3 MG/DL 0-20 N Refe rence Range: BOSSMAN) Analgesic...... ...... ...... < 10 mg /dl Therapeutic.... ...... ...... 15-20 mg /dl Mild Toxicity....... ...... . > 30 mg/dl Severe Toxicity....... ..... > 60 mg/dl UA RFLX [id number] 14:18:00 Test Item Value Reference Range Interpretation [...] Clean Catch (test code = UASPEC) UA [id number] 14:18:00 Test Item Value Reference Range Interpretation Comments UA WBC (test code = WBCU) < 10 #/hpf <10 UA RBC (test code = RBCU) 0-2 #/hpf NONE SEEN A UA BACTERIA (test code = BACU) RARE #/hpf NONE SEEN UA SQUAMOUS CELLS (test code = 0 - 20 #/lpf <100 SQU) UA MUCUS (test code = MUCU) 1+ #/lpf NONE SEEN BASIC METABOLIC [id number] 14:16:00 Test Item Value Reference Range Interpretation [...] 9.4 MG/DL 8.7-10.5 N CA) HEPATIC FUNCTION [id number] 14:16:00 Test Item Value Reference Range Interpretation [...] 50-136 N TOTAL (test code = ALKP) [id number] 14:16:00 Test Item Value Reference Range Interpretation Comments CK (test code = CKT) 87 Units/L 26-192 N [id number] 14:16:00 Test Item Value Reference Range Interpretation Comments ALCOHOL (test code = < 3 MG/DL 0-10 N 0 - 10: Should be ALC) interpreted as NEGATIVE. 11 - 50: None to mild euphoria. 51 - 100: Mild influence on vision and dark adapta tion. > 80: Legal intoxication; D epression of METAL TESTER; Increasing degr ee of poisoning. > 400: Fatalities repo rted. Results are for medical purposes only a nd not forlegal or emp loyment evaluative purp oses. BASIC METABOLIC [id number] 14:09:00 Test Item Value Reference Range Interpretation [...] 9.4 MG/DL 8.7-10.5 N CA) HEPATIC FUNCTION [id number] 14:09:00 Test Item Value Reference Range Interpretation [...] TOTAL (test Units/L 50-136 code = ALKP) [id number] 14:09:00 Test Item Value Reference Range Interpretation Comments CK (test code = CKT) Units/L 26-192 [id number] 14:09:00 Test Item Value Reference Range Interpretation Comments ALCOHOL (test code = ALC) MG/DL 0-10 LACTIC ACID [id number] 13:50:00 Test Item Value Reference Range Interpretation Comments LACTIC ACID POC 0.97 MMOL/L 0.90-1.70 N Performed by certified (test code = LACTP) extruding press operator at [facility] [id number] 13:48:00 Test Item Value Reference Range Interpretation Comments GLUBED (test code = 88 MG/DL 65-99 N Performe d by certified GLUBED) extruding press operator at [facility] DRUG OF ABUSE SCREEN [id number] 13:43:00 Test Item Value Reference Interpretation Comments [...] by layton rader methods (i.e., GC/MS) at [facility]. Results of scre en may not be usedin crimi nal justice, job performance or professionalcre dential review, or infa nt custody issues. Negativ e [place] Level ng/ml ------- ----- Cocaine 300 Methamp hetamine (Ecstacy) 500 Cannabinoids (THC) 50 Amphetamine 1000 Barbiturate s 200 Benzodia zepines 200 Opiat es 300 Ph encyclidine (PCP) 25 UR HCG [id number] 13:39:00 Test Item Value Reference Range Interpretation [...] using aquantitative h CG assay. UA RFLX [id number] 13:38:00 Test Item Value Reference Range Interpretation [...] Clean Catch (test code = UASPEC) UA [id number] 13:38:00 Test Item Value Reference Range Interpretation Comments UA WBC (test code = WBCU) #/hpf <10 UA RBC (test code = RBCU) #/hpf NONE SEEN UA SQUAMOUS CELLS (test code = SQU) #/lpf <100 UA RFLX [id number] 13:38:00 Test Item Value Reference Range Interpretation [...] Clean Catch (test code = UASPEC) UA [id number] 13:38:00 Test Item Value Reference Range Interpretation Comments UA WBC (test code = WBCU) #/hpf <10 UA RBC (test code = RBCU) #/hpf NONE SEEN UA SQUAMOUS CELLS (test code = SQU) #/lpf <100 CBC W/AUTO [id number] 13:26:00 Test Item Value Reference Range Interpretation [...] = BA#) 0.05 x10 3/uL 0.0-0.2 N [id number] 19:07:00 Test Item Value Reference Interpretation Comments Range LEVETIRACETAM 28.7 ug/mL 10.0-40.0 This test was developed and (test code = its performance LEVTAM) characteristics determined by [facility]. It has not been cleared orappro froylan by the Food and Drug Administration. Performed At: [facility] [place], [place] [id number] ra Larissa MENDOZA Ph:[phone] BASIC METABOLIC [id number] 04:58:00 Test Item Value Reference Range Interpretation [...] code = 8.9 MG/DL 8.7-10.5 N CA) [id number] 04:58:00 Test Item Value Reference Range Interpretation Comments MAGNESIUM (test code = MAG) 1.9 MG/DL 1.8-2.4 N CBC W/AUTO [id number] 04:08:00 Test Item Value Reference Range Interpretation [...] 0.0-0.2 N NRBC#) - MRI BRAIN W/O [id number] 13:51:00 Patient Name: HEATHER HOPE Unit No: [id number] EXAMS: CPT CODE: [id number] MRI BRAIN W/O CONTRAST 22814 Reason: sz INDICATION: Seizure COMPARISON: CT brain, [...] MD Technologist: Andre Self MRI Trscrpt Dt/ (8935)AngeliqueDW6 Orig Print D/T: S: 09/17/2018 (8145) [facility] CntNAME: HEATHER HOPE NOVEMBER [address] PHYS: [place] [address] : 1990 AGE: 27 SEX: F LOC: D.D313 1 PHONE #: [phone] EXAM DATE: 09/17/2018 STATUS: ADM IN FAX #: RAD NO: DC Dt: PAGE 1 Signed [id number] 07:25:00 Test Item Value Reference Range Interpretation Comments PROLACTIN (test code = 24.6 ng/mL 4.8-23.3 H Perfo rmed At: HD PROLAC) [facility] [id number] Sb Man MD Ph:[phone] UA RFLX MICROSCOPIC [id number] 19:02:00 Test Item Value Reference Range Interpretation [...] UACULT) URINE SOURCE: Clean CatchUA RFLX MICROSCOPIC [id number] 18:56:00 Test Item Value Reference Range Interpretation [...] (test code = UACULT) URINE SOURCE: Clean [id number] 15:56:00 Test Item Value Reference Range Interpretation Comments CK (test code = CKT) 34 Units/L 26-192 N BASIC METABOLIC [id number] 12:57:00 Test Item Value Reference Range Interpretation [...] code = 8.6 MG/DL 8.7-10.5 L CA) [id number] 12:57:00 Test Item Value Reference Range Interpretation Comments CK (test code = CKT) 32 Units/L 26-192 N CBC W/AUTO [id number] 12:33:00 Test Item Value Reference Range Interpretation [...] 3/uL 0.0-0.2 N NRBC#) TOTAL IRON BINDING [id number] 05:50:00 Test Item Value Reference Range Interpretation Comments SERUM IRON (test code = IRON) 17 MCG/DL 50-170 L TOTAL IRON BINDING CAPACITY (test 363 MCG/DL 280-400 N code = TIBC) IRON SATURATION (test code = 5 % 15-50 L FESAT) [id number] 05:50:00 Test Item Value Reference Range Interpretation Comments FERRITIN (test code = LULI) 11 NG/ML 3-105 N HEPATIC FUNCTION [id number] 05:32:00 Test Item Value Reference Range Interpretation [...] code = ALKP) - CT HEAD/BRAIN W/O [id number] 20:19:00 Patient Name: HEATHER HOPE Unit No: [id number] EXAMS: CPT CODE: [id number] CT HEAD/BRAIN W/O CONT 71100 Reason: seizure TECHNIQUE: Contiguous 5 mm images [...] CTDI: DLP: [facility] NAME: NADINE HOPEICA November [facility] PHYS: NGA. - Keanu Váz[place] [address] : 1990 AGE: 27 SEX: F LOC: D.KIN PHONE#: [phone] EXAM DATE: 09/14/2018 STATUS: REG ER FAX #: RAD NO: DC Dt: PAGE 1 Signed Report- XR CHEST 1 [id number] 20:18:00 Patient Name: HEATHER HOPE [facility] Unit No: [id number] EXAMS: CPT CODE: [id number] XR CHEST 1 V 89284 Reason: screen for pneumonia FINDINGS: Single view [...] (2017)Tristan Orig PrintD/T: S: 09/14/2018 (2020) [facility] NAME: HEATHER HOPE November [facility] PHYS: NGA. - Keanu Váz[place] [address] : 1990 AGE: 27 SEX: F LOC: MATT PHONE #: [phone] EXAM DATE: STATUS: REG ER FAX #: RAD NO: DC Dt: PAGE 1 Signed ReportHCG SERUM [id number] 20:04:00 Test Item Value Reference Range Interpretation [...] using aquantitative h CG assay. BASIC METABOLIC [id number] 19:51:00 Test Item Value Reference Range Interpretation [...] 9.3 MG/DL 8.7-10.5 N CA) CBC W/AUTO [id number] 19:46:00 Test Item Value Reference Range Interpretation [...] BA#) 0.05 x10 3/uL 0.0-0.2 N BLOOD [id number] 10:00:00 Test Item Value Reference Range Interpretation Comments CULTURE (BEAKER) (test No growth in 5 days code = 1095) HCG, QUANTITATIVE, [id number] 15:37:00 Test Item Value Reference Range Interpretation Comments GONADOTROPIN, CHORIONIC (HCG) 84558 mIU/mL 0-10 H QUANT (BEAKER) (test code = 649) Non- Females: <10 mIU/mL Females: Gestation Age Reference Range(mIU/mL) 0.2-1 Week 5-50 1-2 Weeks 50-500 2-3 Weeks 100-5,000 3-4Weeks 500-10,000 4-5 Weeks 1,000-50,000 5-6 Weeks 10,000-100,000 6-8 Weeks 15,000-200,000 2-3 Months 10,000-100,000COMPREHENSIVE METABOLIC [id number] 15:10:00 Test Item Value Reference Range Interpretation [...] PATIEN TS. CBC W/PLT COUNT & AUTO [id number] 14:53:00 Test Item Value Reference Range Interpretation [...] (test code = 2801) U/S, , FIRST [id number] 07:52:00Reason for exam:-> Reason for exam:->please include [...] 1 day. An embryonic pole is evident. Kurten-rump length measures 0.63 cm, correlating with estimated [...] MDReport Verified Date/Time: 05/17/2017 07:52:37 Reading Location: [address] Consult Reading Room PREGNANCY SCREEN, [id number] 05:28:00 Test Item Value Reference Range Interpretation Comments TEST URINE (BEAKER) (test Positive code = 583) MR, BRAIN, WITHOUT [id number] 18:54:00Reason for exam:->Stroke evaluationFINAL REPORT MRI brain [...] Parra Verified Date/Time: 05/15/2017 18:54:11 Reading Location: [facility] Radiology Reading Room EEG AWAKE AND [id number] 12:08:00Reason for exam:->? nonconvulsive statusDATE OF TEST: 05/15/2017DATE OF REPORT 05/15/2017 ACC: [id number] EE Start time: 1034 Stop time: 1054 ICD-10: R56.9CPT Code: 08932DVEHDYF: 26 y/o woman with epilepsy found down [...] recordings.Marika Smith M.D.Neurophysiology FellowSwathi Harper M.D.Neurophysiology Attending [id number] 04:27:00 Test Item Value Reference Range Interpretation Comments PROCALCITONIN (BEAKER) (test code 0.17 ng/mL <0.05 H = 3036) SEPSIS RISK (ng/mL)Low: 0.05-0.50Intermediate: 0.51-2.00High: >=[id number] 03:15:00 Test Item Value Reference Range Interpretation Comments PHOSPHORUS (BEAKER) (test code = 3.1 mg/dL 2.3-4.7 604) [id number] 03:15:00 Test Item Value Reference Range Interpretation Comments MAGNESIUM (BEAKER) (test code = 1.9 mg/dL 1.6-2.6 627) BASIC METABOLIC [id number] 03:15:00 Test Item Value Reference Range Interpretation [...] code = 380) LACTIC ACID, VENOUS, WHOLE [id number] 03:09:00 Test Item Value Reference Range Interpretation Comments LACTATE BLOOD VENOUS (2) (BEAKER) 0.6 mmol/L 0.5-2.2 (test code = 2872) Effective 10/17/2015: Units/Reference Range ChangeNew: 0.5-2.2 mmol/L Previous: 5-20 mg/dLPROTHROMBIN TIME/[id number] 03:07:00 Test Item Value Reference Range Interpretation [...] = 2801) RAD, CHEST, 1 VIEW, NON [id number] 01:06:00Reason for exam:->possible infectionShould this be performed [...] MDReport Verified Date/Time: 05/15/2017 01:06:06 Reading Location: [address] Reading Room
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
[2020-06-11] MEDS ORDERED: NA CHLORIDE 0.9% 1,000 ML ONE (04:18)
[2020-06-11] MEDS ORDERED: LEVETIRACETAM 500 MG/5 ML VIAL IV ONE (06:28)
[2020-06-11] MEDS ORDERED: NA CHLORIDE 0.9% 100 ML ONE (06:28)
[2020-06-11 06:49] LABS: ALT/SGPT 11 U/L (12-78); AST/SGOT 16 U/L (15-37); Albumin 3.7 g/dL (3.4-5.0); Alkaline Phosphatase 75 U/L (45-117); BUN Blood Urea Nitrogen 9 mg/dL (7-18); Bicarbonate 26 mmol/L (21-32); Bilirubin Direct < 0.1 mg/dL (0-0.2); Bilirubin Total 0.1 mg/dL (0.2-1.0); Glucose Level 86 mg/dL (74-106); Potassium 3.5 mmol/L (3.5-5.1); Protein, Total 7.1 g/dL (6.4-8.2); Sodium Level 140 mmol/L (136-145)
--- NOTE | 2020-06-11 07:10 | EDPHYS ---
Physician Documentation [facility] Name: Heather Hope Age: 29 yrs Sex: Female : 1990 Arrival Date: 06/11/2020 Time: 03:31 Bed 3 Private MD: ED Physician Rambo Beck HPI: 06/11 03:45 This 29 yrs old Female presents to ER via Unassigned with complaints of tw4 SEIZURE. 03:45 The patient presents after having a single isolated seizure. Character of seizure(s): tw4 Motor activity: generalized. Seizure onset: just prior to arrival. Context: the seizure(s) was witnessed, by no one. Seizure Hx: the patient has no previous seizure history. Associated injury: The patient did not suffer any apparent associated injury. The patient has not experienced similar symptoms in the past. Historical: - Allergies: 07:52 No Known Drug Allergies; sv - Home Meds: 04:09 Keppra 250 mg Oral tab [Active]; clobazam Oral [Active]; ea - PMHx: 04:09 Seizures; Depression; Anemia; ea - PSHx: 04:09 None; ea - Immunization history:: Adult Immunizations up to date. - Social history:: Smoking status: unknown. ROS: 03:45 Constitutional: Negative for fever, chills, and weight loss, Eyes: Negative for injury, tw4 pain, redness, and discharge, Cardiovascular: Negative for chest pain, palpitations, and edema, Respiratory: Negative for shortness of breath, cough, wheezing, and pleuritic chest pain, Abdomen/GI: Negative for abdominal pain, nausea, vomiting, diarrhea, and constipation, Back: Negative for injury and pain, MS/Extremity: Negative for injury and deformity, Skin: Negative for injury, rash, and discoloration, Neuro: Negative for headache, weakness, numbness, tingling, and seizure. 03:45 Neuro: Positive for altered mental status, seizure activity, Negative for dizziness, gait disturbance, headache, hearing loss, loss of consciousness, numbness, syncope, near syncope, tingling, tinnitus, tremor, visual changes. Exam: 03:45 Head/Face: Normocephalic, atraumatic. Chest/axilla: Normal chest wall appearance and tw4 motion. Nontender with no deformity. No lesions are appreciated. Cardiovascular: Regular rate and rhythm with a normal S1 and S2. No gallops, murmurs, or rubs. Normal PMI, no JVD. No pulse deficits. Respiratory: Lungs have equal breath sounds bilaterally, clear to auscultation and percussion. No rales, rhonchi or wheezes noted. No increased work of breathing, no retractions or nasal flaring. Abdomen/GI: Soft, non-tender, with normal bowel sounds. No distension or tympany. No guarding or rebound. No evidence of tenderness throughout. Back: No spinal tenderness. No costovertebral tenderness. Full range of motion. Skin: Warm, dry with normal turgor. Normal color with no rashes, no lesions, and no evidence of cellulitis. MS/ Extremity: Pulses equal, no cyanosis. Neurovascular intact. Full, normal range of motion. 03:45 Constitutional: The patient appears comatose, POST ICTAL 03:45 Neuro: Orientation: unable to test, the patient is post-ictal, Mentation: Vital Signs: 04:01 BP 136 / 96; Pulse 101; Resp 20; Pulse Ox 97% on R/A; Weight 74.84 kg; lp1 05:12 BP 120 / 79; Pulse 93; Resp 18; Temp 97.6; Pulse Ox 97% on R/A; ea 06:15 BP 118 / 85; Pulse 98; Resp 13; Pulse Ox 99% on R/A; lp1 Thomas Coma Score: 04:01 Eye Response: to pain(2). Verbal Response: confused(4). Motor Response: withdraws from lp1 pain(4). Total: 10. MDM: 03:34 Patient medically screened. tw4 07:08 Data reviewed: vital signs, nurses notes. Data interpreted: Pulse oximetry: tw4 Interpretation: normal. Counseling: I had a detailed discussion with the patient and/or guardian regarding: the historical points, exam findings, and any diagnostic results supporting the discharge/admit diagnosis, lab results, radiology results. Physician consultation: Richard Pisano MD was called at 07:05, was contacted at 07:05, regarding admission, to the telemetry unit. patient's condition, and will see patient in ED. 06/11 03:31 Order name: Acetaminophen; Complete Time: 07:04 tw4 06/11 03:31 Order name: Basic Metabolic Panel; Complete Time: 07:04 [facility] 06/11 03:31 Order name: CBC with Diff [facility] 06/11 03:31 Order name: ETOH Level; Complete Time: 07:04 [facility] 06/11 03:31 Order name: Hepatic Function; Complete Time: 07:04 [facility] 06/11 03:31 Order name: PT-INR [facility] 06/11 03:31 Order name: Ptt, Activated [facility] 06/11 03:31 Order name: Salicylate; Complete Time: 07:04 [facility] 06/11 03:31 Order name: Urine Drug Screen [facility] 06/11 07:08 Order name: CT Head Brain wo Cont [facility] 06/11 09:10 Order name: Urine Dipstick--Ancillary (enter results) 06/11 09:10 Order name: Urine --Ancillary (enter results) 06/11 09:54 Order name: Urine --Ancillary [facility] 06/11 09:54 Order name: Urine Dipstick-Ancillary [facility] 06/11 03:31 Order name: EKG; Complete Time: 03:32 [facility] 06/11 03:31 Order name: EKG - Nurse/Tech; Complete Time: 03:57 [facility] 06/11 03:31 Order name: IV Saline Lock; Complete Time: 03:57 [facility] 06/11 03:31 Order name: Labs collected and sent; Complete Time: 03:57 [facility] 06/11 03:31 Order name: Urine Dipstick-Ancillary (obtain specimen); Complete Time: 03:57 [facility] 06/11 08:14 Order name: CONS Pharmacy Consult [facility] 06/11 08:14 Order name: CONS Physician Consult [facility] 06/11 08:14 Order name: NPO [facility] 06/11 08:15 Order name: EEG Request [facility] Administered Medications: 04:44 Drug: NS 0.9% 1000 ml Route: IV; Rate: 1 bolus; Site: left hand; ea 06:15 Follow up: IV Status: Completed infusion; IV Intake: 1000ml 1 06:15 Drug: Keppra 1000 mg Route: IV; Rate: per protocol; Site: left hand; lp1 Disposition: 06/11/20 07:09 Hospitalization ordered by Richard Pisano for Inpatient Admission. Preliminary diagnosis are POST ICTAL STATE, Epilepsy and recurrent seizures, Epileptic seizures related to external causes. - Bed requested for [facility] ER HOLD. - Status is Inpatient Admission. ss - Condition is Stable. - Problem is new. - Symptoms have improved. Signatures: Dispatcher [employer] EDMS Marissa Lee RN CLAUDIA Anyi Car RN RN ss Marla Gibson RN RN lp1 Cammie Ramos RN RN ea Wadley, Terrence, MD MD tw4 Kari Rivera Corrections: (The following items were deleted from the chart) 09:55 07:09 Hospitalization Ordered by Richard Pisano MD for Inpatient Admission. Preliminary ss diagnosis is POST ICTAL STATE; Epilepsy and recurrent seizures; Epileptic seizures related to external causes. Bed requested for Telemetry/MedSurg (Inpatient). Status is Inpatient Admission. Condition is Stable. Problem is new. Symptoms have improved. tw4 15:46 09:55 06/11/2020 07:09 Hospitalization Ordered by Richard Pisano MD for Inpatient eb Admission. Preliminary diagnosis is POST ICTAL STATE; Epilepsy and recurrent seizures; Epileptic seizures related to external causes. Bed requested for [facility] ER HOLD. Status is Inpatient Admission. Condition is Stable. Problem is new. Symptoms have improved. ss 16:39 15:46 06/11/2020 07:09 Hospitalization Ordered by Richard Pisano MD for Inpatient sv Admission. Preliminary diagnosis is POST ICTAL STATE; Epilepsy and recurrent seizures; Epileptic seizures related to external causes. Bed requested for Telemetry/MedSurg (Inpatient). Status is Inpatient Admission. Condition is Stable. Problem is new. Symptoms have improved. eb 16:39 16:39 06/11/2020 07:09 Hospitalization Ordered by Richard Pisano MD for Inpatient sv Admission. Preliminary diagnosis is POST ICTAL STATE; Epilepsy and recurrent seizures; Epileptic seizures related to external causes. Bed requested for Telemetry/MedSurg (Inpatient). Status is Inpatient Admission. Condition is Stable. Problem is new. Symptoms have improved. sv 16:40 16:39 06/11/2020 07:09 Hospitalization Ordered by Rcihard Pisano MD for Inpatient sv Admission. Preliminary diagnosis is POST ICTAL STATE; Epilepsy and recurrent seizures; Epileptic seizures related to external causes. Bed requested for [facility] ER HOLD. Status is Inpatient Admission. Condition is Stable. Problem is new. Symptoms have improved. sv 18:35 16:40 06/11/2020 07:09 Hospitalization Ordered by Richard Pisano MD for Inpatient ss Admission. Preliminary diagnosis is POST ICTAL STATE; Epilepsy and recurrent seizures; Epileptic seizures related to external causes. Bed requested for [facility] ER HOLD. Status is Inpatient Admission. Condition is Stable. Problem is new. Symptoms have improved. sv
--- NOTE | 2020-06-11 07:10 | ER ---
Nurse's Notes [facility] Name: Heather Hope Age: 29 yrs Sex: Female : 1990 Arrival Date: 06/11/2020 Time: 03:31 Bed 3 Private MD: Diagnosis: POST ICTAL STATE;Epilepsy and recurrent seizures;Epileptic seizures related to external causes Presentation: 06/11 03:30 Chief complaint: EMS states: Found by parents, reported seizure activity for ten ea minutes. Parents report suicide attempt history and history of seizures. Parents reported to EMS that they were unsure if she took anything tonight. Coronavirus screen: At this time, the client does not indicate any symptoms associated with coronavirus-19. Ebola Screen: No symptoms or risks identified at this time. Initial Sepsis Screen: Does the patient meet any 2 criteria? HR > 90 bpm. Does the patient have a suspected source of infection? No. Patient's initial sepsis screen is negative. Risk Assessment: Do you want to hurt yourself or someone else? Patient reports no desire to harm self or others. Onset of symptoms was June 11, 2020. 03:30 Method Of Arrival: EMS: [facility] ea 03:30 Acuity: DARLYN 3 ea Historical: - Allergies: 07:52 No Known Drug Allergies; sv - Home Meds: 04:09 Keppra 250 mg Oral tab [Active]; clobazam Oral [Active]; ea - PMHx: 04:09 Seizures; Depression; Anemia; ea - PSHx: 04:09 None; ea - Immunization history:: Adult Immunizations up to date. - Social history:: Smoking status: unknown. Screenin:01 Abuse screen: Denies threats or abuse. Denies injuries from another. Nutritional lp1 screening: No deficits noted. Tuberculosis screening: No symptoms or risk factors identified. Fall Risk Total Green Fall Scale indicates High Risk Score (45 or more points). Fall prevention measures have been instituted. Side Rails Up X 2 Placed Close to Nursing Station Frequent Obs/Assessments Occuring. Assessment: 04:00 General: Appears in no apparent distress. Behavior is unresponsive. Pain: Unable to use lp1 pain scale. Patient is disoriented. Neuro: Level of Consciousness is Responsive to painful stimuli. Oriented to none Moves all extremities. Cardiovascular: Capillary refill < 3 seconds in bilateral fingers toes Patient's skin is warm and dry. Rhythm is sinus rhythm. Respiratory: Airway is patent Trachea midline Respiratory effort is even, Respiratory pattern is symmetrical, Breath sounds are clear bilaterally. GI: Abdomen is non-distended. : No signs and/or symptoms were reported regarding the genitourinary system. EENT: No deficits noted. Derm: Skin is pink, warm \T\ dry. Scars noted to general body, neck, right upper thigh, right forearm. Musculoskeletal: Range of motion: intact in all extremities. 04:45 Reassessment: Patient moving independently in bed, eyes remain closed, respirations lp1 even. 05:11 Reassessment: Patient and/or family updated on plan of care and expected duration. Pain ea level reassessed. Pt resting with eyes closed, respirations even and unlabored. Pt reacts to painful stimulus and loud verbal stimulus. 06:15 Reassessment: Verbal order per Dr. Beck for Keppra 1g IV now. lp1 07:19 Reassessment: Called lab to obtain lab recollect CBC and PT, PTT. Spoke with Kena. ss 07:58 Reassessment: Pt back from CT. ss 09:02 Reassessment: urine obtained at this time. Pt is responsive to loud verbal and painful ss stimuli. Vital Signs: 04:01 BP 136 / 96; Pulse 101; Resp 20; Pulse Ox 97% on R/A; Weight 74.84 kg; lp1 05:12 BP 120 / 79; Pulse 93; Resp 18; Temp 97.6; Pulse Ox 97% on R/A; ea 06:15 BP 118 / 85; Pulse 98; Resp 13; Pulse Ox 99% on R/A; lp1 Thomas Coma Score: 04:01 Eye Response: to pain(2). Verbal Response: confused(4). Motor Response: withdraws from lp1 pain(4). Total: 10. ED Course: 03:30 Patient has correct armband on for positive identification. Placed in gown. Bed in low lp1 position. Call light in reach. Side rails up X2. Seizure precautions initiated. powerhouse mechanic on. Pulse ox on. NIBP on. 03:31 Patient arrived in ED. tw4 03:34 Rambo Beck MD is Attending Physician. tw4 03:45 Accessed peripheral vein via ultrasound, utilizing dynamic ultrasound technique using lp1 20G Nexia IV catheter ,sterile technique, per hospital protocol. Clean \T\ dry. Good blood return. Flushes easily. 04:00 Marla Gibson, RN is Primary Nurse. lp1 04:08 Triage completed. ea 04:08 Arm band placed on right wrist. Patient placed in an exam room, on a stretcher, on ea gritting machine operator, on pulse oximetry. EKG completed in triage. Results shown to MD. 04:10 Pope cath inserted, using sterile technique, 18 Fr., by me, balloon inflated. ea 06:15 Lab(s) recollected, by me, sent to lab. lp1 06:20 Inserted saline lock: 22 gauge in left ,using aseptic technique. IV is inserted in left ds4 breast. 07:04 Primary Nurse role handed off by Marla Gibson RN eb 07:08 Richard Pisano MD is Hospitalizing Provider. tw4 07:[address] via stretcher. sv 07:52 CT Head Brain wo Cont In Process Unspecified. EDMS 07:57 Marissa Lee, CLAUDIA is Primary Nurse. sv 07:57 Patient moved back from CT. sv 10:00 No provider procedures requiring assistance completed. Patient admitted, IV remains in sv place. intact. Administered Medications: 04:44 Drug: NS 0.9% 1000 ml Route: IV; Rate: 1 bolus; Site: left hand; ea 06:15 Follow up: IV Status: Completed infusion; IV Intake: 1000ml lp1 06:15 Drug: Keppra 1000 mg Route: IV; Rate: per protocol; Site: left hand; lp1 Intake: 06:15 IV: 1000ml; Total: 1000ml. lp1 Outcome: 07:09 Decision to Hospitalize by Provider. tw4 10:00 Admitted to ER Hold. Please see [facility] for further documentation. sv 10:00 Condition: stable 10:00 Instructed on the need for admit. sv 18:35 Patient left the ED. Signatures: Dispatcher [employer] Marissa Donahue RN RN Anyi Car RN RN Marla Gibson, CLAUDIA TAYLOR lp1 Richard Brewer ds4 Cammie Ramos RN RN ea Wadley, Terrence, MD MD tw4 Kari Rivera eb
[2020-06-11] MEDS ORDERED: ONDANSETRON 4 MG/2 ML VIAL IV PRN (08:11)
[2020-06-11] MEDS ORDERED: ACETAMINOPHEN 500 MG TAB PO PRN (08:11)
--- NOTE | 2020-06-11 08:18 | RAD REPORT ---
EXAM DESCRIPTION: CT - Head Brain Wo Cont - 06/11/2020 7:52 am CLINICAL HISTORY: altered mental status Headache, drowsiness, seizure COMPARISON: Head Brain Wo Cont dated 04/02/2020; Facial Bones W/ Mpr dated 12/14/2019 TECHNIQUE: All CT scans are performed using dose optimization technique as appropriate and may inclu de automated exposure control or mA/KV adjustment according to patient size. FINDINGS: No intracranial hemorrhage, hydrocephalus or extra-axial fluid collection.No areas of brai n edema or evidence of midline shift. The paranasal sinuses and mastoids are clear. The calvarium is intact. IMPRESSION: No acute intracranial abnormality.
[2020-06-11] MEDS ORDERED: levETIRAcetam 500 MG in NA CHLORIDE 0.9% 100 ML IV SCH (09:00)
[2020-06-11] MEDS ORDERED: NA CHLORIDE 0.9% 1,000 ML IV SCH (09:00)
[2020-06-11] MEDS ORDERED: clonazePAM 0.5 MG TAB PO SCH (09:00)
[2020-06-11 09:03] LABS: Absolute Lymphocytes (CBC) 1.9 K/uL (0.7-4.9); Basophils % 1.1 % (0-1.3); Hematocrit 35.7 % (36.0-45.0); Lymphocytes % 25.6 % (15.3-44.8); MPV 7.9 fL (7.6-11.3); RBC Red Blood Cell Count 4.22 M/uL (3.86-4.86)
[2020-06-11 09:15] LABS: Protime INR 1.08
[2020-06-11 09:44] LABS: Barbiturates NEGATIVE (NEGATIVE); Benzodiazepines POSITIVE (NEGATIVE); Cocaine NEGATIVE (NEGATIVE); METHAMPHETAM NEGATIVE (NEGATIVE); Methadone NEGATIVE (NEGATIVE); Opiates NEGATIVE (NEGATIVE); Phencyclidine NEGATIVE (NEGATIVE); THC Cannibis NEGATIVE (NEGATIVE)
[2020-06-11 09:54] LABS: Urine Blood NEGATIVE (NEG); Urine Glucose NEGATIVE (NEG); Urine Protein 1+ (NEG)
[2020-06-11 11:11] VITALS: BMI 28.9
[2020-06-11 12:04] VITALS: BP 113/66; TEMP 97.8
--- NOTE | 2020-06-11 14:20 | P.HP ---
Certification for Inpatient Patient admitted to: Observation With expected LOS: <2 Midnights Patient will require the following post-hospital care: None Practitioner: I am a practitioner with admitting privileges, knowledge of patient current condition, hospital course, and medical plan of care. Services: Services provided to patient in accordance with Admission requirements found in Title 42 Section 412.3 of the Code of Federal Regulations Patient History Date of Service: 06/11/20 Reason for admission: Seizure disorder History of Present Illness: Patient is a 29-year-old female came to the hospital after having a seizure. Patient has had multiple episodes of the similar occurrences. Otherwise nothing new occurred. She was more altered for right quite a bit longer than normal. We decided to admit her to the hospital as she was having a prolonged postictal state. We may need to do further workup depending on how her mentation she does. Allergies No Known Drug Allergies Allergy (Verified 08/21/19 23:48) Unknown Home Medications: Levetiracetam [Keppra] 1 tab PO BID 08/21/19 Ferrous Sulfate 325 mg PO BID #60 tablet 08/22/19 Divalproex Sodium [Depakote] 250 mg PO BID 30 Days #60 tablet. 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 moist/pink, EOMI, Sclerae nonicteric Neck: Supple, 2+ carotid pulse no bruit, No LAD, Without JVD or thyroid abnormality Respiratory: Clear to auscultation bilaterally, Normal air movement Cardiovascular: Regular rate/rhythm, Normal S1 S2, No murmurs Gastrointestinal: Normal bowel sounds, Soft and benign, Non-distended, No tenderness Musculoskeletal: No clubbing, No swelling, No tenderness Integumentary: No rashes Neurological: Normal gait, Normal speech, Normal strength at 5/5 x4 extr, Normal tone, Sensation intact, Cranial nerves 3-12 intact, Normal affect Lymphatics: No axilla or inguinal lymphadenopathy - Studies Laboratory Data (last 24 hrs) 06/11/20 06:10: Sodium 140, Potassium 3.5, BUN 9, Creatinine 0.46 L, Glucose 86, Total Bilirubin 0.1 L, AST 16, ALT 11 L, Alkaline Phosphatase 75 Assessment & Plan - Problems (Diagnosis) (1) Complex partial epilepsy Onset Date: 01/30/15 Current Visit: No Status: Acute Qualifiers: Epilepsy type: partial symptomatic - Plan Plan: 1. Continue anti epileptics 2. EEG 3. Neurology consultation 4. Benzodiazepines as needed 5. GI and DVT prophylaxis Discharge Plan: Home Plan to discharge in: Greater than 2 days - Advance Directives Does patient have a Living Will: No Does patient have a Durable POA for Healthcare: No - Code Status/Comfort Care Code Status Assessed: Yes Code Status: Full Code Critical Care: No Time Spent Managing PTS Care (In Minutes): 40
[2020-06-11 19:14] VITALS: O2SAT 99
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
--- NOTE | 2020-06-19 00:31 | P.DS ---
Discharge Date: 06/11/20 Disposition: ROUTINE DISCHARGE Discharge Condition: GOOD Reason for Admission: Seizure disorder - Problems (1) Complex partial epilepsy Onset Date: 01/30/15 Status: Acute Qualifiers: Epilepsy type: partial symptomatic Brief History of Present Illness: Patient is a 29-year-old female came to the hospital after having a seizure. Patient has had multiple episodes of the similar occurrences. Otherwise nothing new occurred. She was more altered for right quite a bit longer than normal. We decided to admit her to the hospital as she was having a prolonged postictal state. We may need to do further workup depending on how her mentation she does. Hospital Course: Patient had done well during hospital stay. Patient wants to go home and we will clear the patient for discharge. She will need to follow with neurology in 1-2 weeks. At this time, patient is stable for discharge home with outpatient follow up. Vital Signs/Physical Exam: Temp Pulse Resp BP Pulse Ox 97.8 F 92 H 17 113/66 100 06/11/20 14:19 06/11/20 14:19 06/11/20 14:19 06/11/20 14:19 06/11/20 14:19 General: Alert, In no apparent distress, Oriented x3 Laboratory Data at Discharge: WBC 7.6 K/uL (4.3-10.9) 06/11/20 08:50 Hgb 11.6 g/dL (12.0-15.0) L 06/11/20 08:50 Hct 35.7 % (36.0-45.0) L 06/11/20 08:50 Plt Count 252 K/uL (152-406) 06/11/20 08:50 PT 12.7 SECONDS (9.5-12.5) H 06/11/20 08:50 INR 1.08 06/11/20 08:50 APTT 24.5 SECONDS (24.3-36.9) 06/11/20 08:50 Sodium 140 mmol/L (136-145) 06/11/20 06:10 Potassium 3.5 mmol/L (3.5-5.1) 06/11/20 06:10 BUN 9 mg/dL (7-18) 06/11/20 06:10 Creatinine 0.46 mg/dL (0.55-1.3) L 06/11/20 06:10 Glucose 86 mg/dL (74-106) 06/11/20 06:10 Total Bilirubin 0.1 mg/dL (0.2-1.0) L 06/11/20 06:10 AST 16 U/L (15-37) 06/11/20 06:10 ALT 11 U/L (12-78) L 06/11/20 06:10 Alkaline Phosphatase 75 U/L (45-117) 06/11/20 06:10 Home Medications: Levetiracetam [Keppra] 1 tab PO BID 08/21/19 Ferrous Sulfate 325 mg PO BID #60 tablet 08/22/19 Divalproex Sodium [Depakote] 250 mg PO BID 30 Days #60 tablet. 02/15/20 clonazePAM [Klonopin*] 0.5 mg PO TID #30 tab 06/11/20 New Medications: clonazePAM [Klonopin*] 0.5 mg PO TID #30 tab Patient Discharge Instructions: OK TO DC IV AND DC HOME. FOLLOW-UP WITH PRIMARY CARE PROVIDER IN 1-2 WEEKS. FOLLOW-UP WITH NEUROLOGY IN 1-2 WEEKS. RETURN TO THE ER IF symptoms worsen. CALL or TEXT DR. GARCIA AT [phone] IF ANY QUESTIONS REGARDING HOSPITAL STAY. PLEASE CALL THE FLOOR AT [phone] IF ANY MEDICATION OR NURSING QUESTIONS. Diet: Regular Activity: Fall precautions Followup: Alda Oliver DO [Primary Care Provider] - Time spent managing pt's care (in minutes): 35
== END 2020-06-11 18:30 | disposition home or self-care (01) ==
LOC: ER 03:26 → ERHOLD 08:11
PROVIDERS: ADMIT Hospitalist; ATTEND Hospitalist
DX: G40.209 Localization-related (focal) (partial) symptomatic epilepsy and epileptic syndromes with complex partial seizures, not intractable, without status epilepticus (principal); F32.9 Major depressive disorder, single episode, unspecified
CPT/HCPCS: 96361; 93005; 85025; 80048; 36415; 80320; 80329 ×2; 81025; 85610; 80076; 80307 ×8; 85730; 81003; 70450; 51702; 96374; 99285; J1953 ×2; J7030

== ENCOUNTER 2020-06-17 09:13 | Emergency (ER) | payer OTHER ==
--- OUTSIDE RECORDS SUMMARY | 2020-06-17 09:17 | XMS REPORT | Clinical Summary ---
:1990 Author Organization [facility] Address [address] [place] [address] Care Team Providers Name Role Phone Unavailable Primary Care Provider Unavailable Allergies No Known Allergies Medications Medication Sig Dispensed Refills Start Date End Date Status levETIRAcetam (KEPPRA) Take 1 tablet 60 tablet 2 05/19/2017 Active 1000 MG tablet (1,000 mg total) by mouth 2 (two) times daily. vitamin Take 1 tablet by 90 tablet 3 05/20/2017 Active w/aatbrww-jfck-wfmule mouth daily. ( PLUS) 27 mg iron- [...] Not on file Results Not on fileafter 06/17/2019 [id number] Advance Directives For more information, please contact: [phone] Code Status Date Activated Date Inactivated Comments Full Code 05/14/2017 10:10 PM 05/19/2017 2:55 PM This code status was determined by: Patient
--- OUTSIDE RECORDS SUMMARY | 2020-06-17 09:17 | XMS REPORT | Clinical Summary ---
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 [...] Henley MD 11/17/2019 Patient Outreach Quality Nola Sevilla, CLAUDIA 11/16/2019 Patient Outreach Quality Nola Sevilla RN 11/12/2019 - Hospital Encounter General Internal Bailey, Shari Seiz ure (HCC) 11/15/2019 Medicine Adolfo, (Primary Dx) MD MaxwellCaesar MD Adenwala, Yusuf Ebrahim, MD 10/31/2019 Travel 10/24/2019 Travel after 06/17/2019 Immunizations Name Administration Dates Next Due Tdap [...] file Not on file Not on file Last Filed Vital Signs Vital Sign Reading Time Taken Comments Blood Pressure 127/74 05/02/2020 5:45 PM FIELD INSPECTOR Pulse 82 05/02/2020 5:45 PM FIELD INSPECTOR Temperature 36.9 C (98.5 F) 05/02/2020 2:17 PM FIELD INSPECTOR Respiratory Rate 14 05/02/2020 5:45 PM FIELD INSPECTOR Oxygen Saturation 100% 05/02/2020 5:45 PM FIELD INSPECTOR Inhaled Oxygen Concentration - - Weight 78 kg (172 lb) 05/02/2020 2:28 PM FIELD INSPECTOR Height 160 cm (5' 3") 05/02/2020 2:28 PM FIELD INSPECTOR Body Mass Index 30.47 05/02/2020 2:28 PM FIELD INSPECTOR Plan of Treatment Date Type Specialty Care Team Description 07/02/2020 Hospital Encounter General Surgery Griffin Foster MD [address] [facility] [address] [place], [place] [address] [phone] 07/02/2020 Surgery General Surgery Griffin Foster, INSERTION OF DBS FOR MD EPILEPSY [address] [facility] [place], [place] [address] [phone] Health Maintenance Due Date Last Done Comments COVID-19 VACCINE (#1) 2005 CERVICAL CANCER SCREENING 2010 INFLUENZA VACCINE 01/14/2020 Procedures Procedure Name Priority Date/Time Associated Comments Diagnosis COVID-19 QUALITATIVE STAT 05/02/2020 4:10 Res ults for this PCR PM FIELD INSPECTOR procedure are i n the results section. URINE CULTURE STAT 05/02/2020 3:51 Results fo r this PM FIELD INSPECTOR procedure are i n the results section. CT HEAD WO CONTRAST STAT 05/02/2020 3:47 Resu lts for this PM FIELD INSPECTOR procedure are i n the results section. SMEAR REVIEW STAT 05/02/2020 3:30 Results for this PM FIELD INSPECTOR procedure are i n the results section. ESTIMATED GFR STAT 05/02/2020 3:30 Results fo r this PM FIELD INSPECTOR procedure are i n the results section. BASIC METABOLIC PANEL STAT 05/02/2020 3:30 Re sults for this PM FIELD INSPECTOR procedure are i n the results section. HCG QUALITATIVE, SERUM STAT 05/02/2020 3:30 R esults for this SCREEN PM FIELD INSPECTOR procedure are i n the results section. HC COMPLETE BLD COUNT STAT 05/02/2020 3:30 Re sults for this W/AUTO DIFF PM FIELD INSPECTOR procedure are i n the results section. URINALYSIS SCREEN AND STAT 05/02/2020 3:28 Re sults for this MICROSCOPY, WITH PM FIELD INSPECTOR procedure a re in REFLEX TO CULTURE [...] Routine 04/06/2020 4:50 Res ults for this ([employer]) PM CDT procedure are i n the [...] are i n the results section. after 06/17/2019 Results COVID-19 qualitative PCR (05/02/2020 4:10 PM FIELD INSPECTOR)Only the most recent of3 resultswithin the time period is included. Interpretation Negative results do not prec lude 2019-nCoV infection and should not be used as the sole basis for treatment or other patient management decisions. Negative results must be combined with clinical observations, patient history, and epidemiological [place] information. [facility] COVID-19 qualitative Not-Detected Not-Detecte [place] PCR result d [facility] See link below for [place] PCR PDF Lab JEWISH ReportComment: Case HOSPITAL Number: [id number] Specimen Nasopharyngeal swab Performing Organization Address [facility] Phon e Number [facility] DEPARTMENT OF PATHOLOGY AND [address] [place] [address] [address] [facility] Urine culture (05/02/2020 3:51 PM FIELD INSPECTOR)Only the most recent of3 resultswithin the time period is included. Urine culture Mixed prem <=10-3 col/cc [facility] IST isolate Comment: HOSPITAL Specimen Information Specimen Source: Urine Specimen Site: Clean catch Specimen Urine Performing Organization Address [facility] Phon e Number [facility] DEPARTMENT OF PATHOLOGY AND [address] [place] [address] [phone] [address] [address] Head Wo Contrast (05/02/2020 3:47 PM FIELD INSPECTOR)Only the most recent of4 results within the [...] No CT evidence of acute intracranial abnormality. [id number] Procedure Note Hm Interface, Radiology Results Incoming - 05/02/2020 3:57 PM FIELD INSPECTOR EXAMINATION: CT HEAD WO CONTRAST CLINICAL HISTORY: [...] No CT evidence of acute intracranial abnormality. [id number] Performing Organization Address City/State/[facility] Code Phon e Number [facility] [address] [place] [address] Smear review (05/02/2020 3:30 PM FIELD INSPECTOR) Pathologist Sig nature Platelet slide Sana adequate [facility] Enlarged platelets Moderate (A) [facility] Specimen Plasma Performing Organization Address City/State/[facility] Phon e Number [facility] DEPARTMENT OF PATHOLOGY AND [address] [place], [place] [address] GENOMIC MEDICINE [facility] [address] [place] [address] Estimated GFR (05/02/2020 3:30 PM FIELD INSPECTOR)Only the most recent of7 resultswithin the time period is included. Estimated GFR >=90 mL/min/1.73 [facility] Comment: m2 HOSPITAL Catergory Units [...] in 2014. Specimen Plasma Performing Organization Address City/State/[facility] Code Phon e Number [facility] DEPARTMENT OF PATHOLOGY AND [address] [place], [place] [address] GENOMIC MEDICINE [facility] [address] [place] [address] CBC with platelet and differential (05/02/2020 3:30 PM FIELD INSPECTOR)Only the most recent of6 resultswithin the time period is included. WBC 10.69 4.50 - 11.00 [facility] k/uL HOSPITAL RBC 4.71 4.20 - 5.50 [facility] m/[facility] HGB 13.5 12.0 - 16.0 [facility]/dL [facility] HCT 42.4 37.0 - 47.0 % [facility] MCV 90.0 82.0 - 100.0 [facility] MCH 28.7 27.0 - 34.0 pg [facility] MCHC 31.8 31.0 - 37.0 [facility] g/dL [facility] RDW - SD 41.3 37.0 - 55.0 fL [facility] MPV 10.0 8.8 - 13.2 fL [facility] Platelet count 260 150 - 400 k/uL [facility] Nucleated RBC 0.00 /100 WBC [facility] Neutrophils 65.7 39.0 - 69.0 % [facility] Lymphocytes 24.7 (L) 25.0 - 45.0 % [facility] Monocytes 7.3 0.0 - 10.0 % [facility] Eosinophils 1.3 0.0 - 5.0 % [facility] Basophils 0.7 0.0 - 1.0 % [facility] Immature granulocytes 0.3Comment: 0.0 - 1.0 % [facility] "Immature HOSPITAL granulocytes" (promyelocytes , myelocytes, metamyelocytes ) Specimen Plasma Performing Organization Address [facility] Phon e Number [facility] DEPARTMENT OF PATHOLOGY AND [address] [place] [address] [phone] [address] hCG qualitative, serum screen (05/02/2020 3:30 PM FIELD INSPECTOR) [facility] hCG qualitative, NegativeComment: [facility] serum Sensitivity of HCG HOSPITAL test: 25 mIU/mL Specimen Blood Performing Organization Address [facility] Phon e Number [facility] DEPARTMENT OF PATHOLOGY AND [address] [place] [address] [phone] [address] Basic metabolic panel (05/02/2020 3:30 PM FIELD INSPECTOR)Only the most recent of4 results within the time period is included. [facility] Sodium 140 135 - 148 mEq/L [facility] L Potassium 3.7 3.5 - 5.0 mEq/L [facility] L Chloride 103 98 - 112 mEq/L [facility] CO2 25 24 - 31 mEq/L [facility] Anion gap 12@ANIO 7 - 15 mEq/L [facility] BUN 13 6 - 20 mg/dL [facility] Creatinine 0.70 0.50 - 0.90 mg/dL [facility] Glucose 93 65 - 99 mg/dL [facility] Calcium 9.6 8.3 - 10.2 mg/dL [facility] Specimen Plasma Performing Organization Address [facility] Phon e Number [facility] DEPARTMENT OF PATHOLOGY AND [address] [place], [place] [address] [address] [address] Urinalysis screen and microscopy, with reflex to culture (05/02/2020 3:28 PM FIELD INSPECTOR)Only the most recent of3 resultswithin the time period is included. Pathologist [facility] Specimen site Clean catch [facility] Color, UA Yellow [facility] Appearance, UA Clear [facility] Specific gravity, UA 1.035 1.001 - 1.035 [facility] pH, UA 5.0 5.0 - 8.5 [facility] Protein, UA Negative Negative [facility] Glucose, UA Negative Negative [facility] Ketones, UA Trace (A) Negative [facility] Bilirubin, UA Negative Negative [facility] Blood, UA Negative Negative [facility] Nitrite, UA Negative Negative [facility] Urobilinogen, UA <2.0 <2.0 [facility] Leukocyte esterase, Small (A) Negative [facility] Epithelial cells, UA 6 /HPF [facility] WBC, UA 10 (H) 0 - 4 /HPF [facility] RBC, UA 2 0 - 5 /HPF [facility] Bacteria, UA Few None seen [facility] Yeast, UA None seen [facility] Yeast with None seen [facility] pseudohyphae, HOSPITAL Specimen Urine Performing Organization Address City/[facility] Phon e Number [facility] DEPARTMENT OF PATHOLOGY AND [address] [place] [address] [address] POC glucose (04/06/2020 5:27 PM CDT)Only the most recent of2 resultswithin the time period is included. Pathologist Sig nature POC glucose 102 (H) 65 - 99 mg/dL [facility] Comment: HOSPITAL Direct Care Staffer Name: Gerber Mcdonald Device ID: [id number] Specimen Blood Performing Organization Address City/[facility] Phon e Number [facility] DEPARTMENT OF PATHOLOGY AND [address] [place] [address] [phone] [address] SS-B antibody (04/06/2020 4:50 PM CDT) Pathologist [facility] Sjogren's SS-B 0.6 0.0 - 0.9 [facility] antibody [facility] SS-B antibody Negative [facility] Comment: JEWISH SS-B/La antibody is seen in patients with Sjogre n syndrome, but may also be HOSPITAL positive with systemic lupus erythematosus (SLE), and systemic sclerosis. Specimen Serum Performing Organization Address City/[facility] Phon e Number [facility] DEPARTMENT OF PATHOLOGY AND [address] [place] [address] [phone] [address] SS-A antibody (04/06/2020 4:50 PM CDT) Pathologist [facility] Sjogren's SS-A <0.2 0.0 - 0.9 [facility] [place] antibody [facility] SS-A antibody Negative [facility] interp Comment: JEWISH SS-A antibody is sensitive for Sjogren's syndrom e, but may also be positive HOSPITAL with systemic lupus erythematosus (SLE), and systemic sclerosis. Specimen Serum Performing Organization Address City/[facility]/ZIP Code Phon e Number [facility] DEPARTMENT OF PATHOLOGY AND [address] [place] [address] [address] Matthew antibody (04/06/2020 4:50 PM CDT) Matthew antibody <0.2 0.0 - 0.9 [facility] Matthew antibody Negative [facility] interp Comment: JEWISH Anti-Matthew antibodies occurs in 30-35% of [facility] lupus erythematosus HOSPITAL (SLE) cases, but is very specific for SLE. It may also present in mixed connective-tissue disease (MCTD). Specimen Serum Performing Organization Address City/[facility] Phon e Number [facility] DEPARTMENT OF PATHOLOGY AND [address] [place] [address] [address] Scl-70 antibody (04/06/2020 4:50 PM CDT) Scleroderma SCL-70 <0.2 0.0 - 0.9 [facility] Ab [facility] Scl-70 antibody Negative [facility] interp Comment: JEWISH Anti-Scl-70 (topoisomerase I) antibodies are found in patients with HOSPITAL systemic sclerosis (SSc or scleroderma), and have been reported to be predictive of diffuse cutaneous involvement. Anti-Scl- 70 antibodies may also be present in patients with systemic lupus erythe matosus (SLE). Specimen Serum Performing Organization Address City/State/ZIP Code Phon e Number [facility] DEPARTMENT OF PATHOLOGY AND [address] [place] [address] [address] Ribonucleic antibody ([employer]ANT) (04/06/2020 4:50 PM CDT) Ribonucleic <0.2 0.0 - 0.9 [facility] antibody ([employer]ANT) [facility] Ribonucleic Negative [facility] antibody ([employer]) Comment: [facility]-ribonucleic protein (anti-[employer]SULTANT) antibodies a re typically found in HOSPITAL patients with mixed connective tissue disease, but can also be seen in patients with systemic lupus erythematosus (SLE) or sy stematic sclerosis. Specimen Serum Performing Organization Address City/[facility]/ZIP Code Phon e Number [facility] DEPARTMENT OF PATHOLOGY AND [address] [place] [address] Bernarda-1 antibody (04/06/2020 4:50 PM CDT) Bernarda-1 antibody <0.2 0.0 - 0.9 [facility] Bernarda-1 antibody Negative [place] interp Comment: JEWISH Anti-Bernarda-1 antibody is predominantly found in pat ients with polymyositis, HOSPITAL especially for those with interstitial pulmonary fibro sis. It can also be found in patients with dermatomyositis. Specimen Serum Performing Organization Address [facility] Phon e Number [facility] DEPARTMENT OF PATHOLOGY AND [address] [place] [address] [address] Centromere antibody (04/06/2020 4:50 PM CDT) Centromere <0.2 0.0 - 0.9 [facility] Centromere Negative [facility] interp Comment: HOSPITAL Anti-centromere antibodies are found in patients with systemic sclerosis (SSc or scleroderma), especially for those with limite d cutaneous or CREST syndrome. Anti-centromere antibodies may also be found in patients with other rheumatic or connective tissue diseases. Specimen Serum Performing Organization Address City/[facility]/ZIP Code Phon e Number [facility] DEPARTMENT OF PATHOLOGY AND [address] [place] [address] [phone] [address] Double-stranded DNA (dsDNA) antibodies, Crithidia (04/06/2020 4:50 PM CDT) Pathologist Sig nature DNA Ab screen Not Detected Not-Detected [facility] Specimen Blood Performing Organization Address City/State/ZIP Code Phon e Number [facility] DEPARTMENT OF PATHOLOGY AND [address] [place] [address] [phone] [address] Homocystine, plasma (04/05/2020 5:40 PM CDT)Only the most recent of3 results within the time period is included. Homocysteine 6.7 0.0 - 15.0 [facility] Comment: umol/L HOSPITAL The risk for coronary vascular disease increases progr essively with homocysteine concentration. A 3.4 times greater risk is associated with a homocysteine concentration of greate r than 15.8 umol/L as compared to a concentration below 14.1 umol/L. Specimen is slightly hemolyzed. Interpret results ac cordingly. Specimen Plasma Performing Organization Address [facility] Phon e Number [facility] DEPARTMENT OF PATHOLOGY AND [address] [place] [address] [phone] [address] Potassium level (04/05/2020 5:40 PM CDT) Pathologist Sig nature Potassium 3.7 3.5 - 5.0 mEq/L [facility] L Specimen Plasma Performing Organization Address [facility] Phon e Number [facility] DEPARTMENT OF PATHOLOGY AND [address] [place] [phone] [place] [id number] [place] [address] EEG (routine) (04/05/2020 11:03 AM CDT) Narrative [...] time period is included. Pathologist [facility] Syphilis total Non-reactiveComment Non-reactive [facility] antibody : No serological HOSPITAL evidence of syphilis infection. Specimen Serum Narrative Performed At Unable to perform testing, specimen is [facility] DEPARTMENT OF PATHOLOGY AND GENOMIC _HEMOLYZED___. Recollect MEDICINE requested for __K__ (tests). __ENOC BECKETTSAVANAHFay/[id number] (name/location) notified by ___JT_ (tech ID) at __ 04/05/2020 07:01 __ (date/time). Credit issued. Unable to perform testing, specimen is _HEMOLYZED___. Recollect requested for _HCYT (tests). __ENOC BECKETTSAVANAHFay/[email or web address] (name/location) notified by ___JT_ (tech ID) at __ 04/05/2020 09:26 __ (date/time). Credit issued. Performing Organization Address City/State/ZIP Code Phon e Number [facility] DEPARTMENT OF PATHOLOGY AND [address] [place], [place] [address] GENOMIC [address] [address] HIV Ag/Ab combination (04/05/2020 4:00 AM CDT)Only the most recent of2 results within the time period is included. Pathologist [facility] HIV Ag/Ab combination Non-reactive Non-reactive [facility] Specimen Blood Performing Organization Address City/State/ZIP Code Phon e Number [facility] DEPARTMENT OF PATHOLOGY AND [address] [place] [address] [phone] [address] Vitamin D 25 hydroxy level (04/05/2020 4:00 AM CDT)Only the most recent of2 resultswithin the time period is included. Vitamin D, 12.1 (L) 30.0 - 150.0 [facility] 25-hydroxy Comment: ng/mL HOSPITAL This [...] alternative methods. Specimen Blood Performing Organization Address City/State/ZIP Code Phon e Number [facility] DEPARTMENT OF PATHOLOGY AND [address] [place] [address] [address] Rheumatoid factor (04/05/2020 4:00 AM CDT)Only the most recent of2 results within the time period is included. Pathologist Sig nature Rheumatoid factor <10 0 - 13 IU/mL [facility] Specimen Plasma Narrative Performed At Unable to perform testing, specimen is [facility] DEPARTMENT OF PATHOLOGY AND GENOMIC _HEMOLYZED___. Recollect MEDICINE requested for __K__ (tests). __ENOC AVILA/[email or web address] (name/location) notified by ___JT_ (tech ID) at __ 04/05/2020 07:01 __ (date/time). Credit issued. Performing Organization Address City/State/ZIP Code Phon e Number [facility] DEPARTMENT OF PATHOLOGY AND [address] [place] [address] [place] [address] C-reactive protein (04/05/2020 4:00 AM CDT)Only the most recent of2 results within the time period is included. Pathologist Sig nature CRP <0.30 0.00 - 0.50 mg/dL [facility] Specimen Plasma Performing Organization Address [facility] Phon e Number [facility] DEPARTMENT OF PATHOLOGY AND [address] [place] [address] T3 (04/05/2020 4:00 AM CDT) Pathologist Sig nature T3 89 80 - 200 ng/dL [facility] Specimen Plasma Performing Organization Address [facility] Phon e Number [facility] DEPARTMENT OF PATHOLOGY AND [address] [place] [address] Thyroid stimulating hormone (04/05/2020 4:00 AM CDT)Only the most recent of2 resultswithin the time period is included. Pathologist Sig nature TSH 1.26 0.27 - 4.20 uIU/mL [facility] Specimen Plasma Performing Organization Address [facility] Phon e Number [facility] DEPARTMENT OF PATHOLOGY AND [address] [place] [address] T4, free (04/05/2020 4:00 AM CDT)Only the most recent of2 resultswithin the time period is included. Pathologist Sig nature T4, free 1.1 0.9 - 1.7 ng/dL [facility] L Specimen Plasma Performing Organization Address [facility] Phon e Number [facility] DEPARTMENT OF PATHOLOGY AND [address] [place] [address] Magnesium level (04/05/2020 4:00 AM CDT)Only the most recent of3 resultswithin the time period is included. Pathologist Sig nature Magnesium 1.8 1.6 - 2.6 mg/dL [facility] L Specimen Plasma Performing Organization Address [facility]/ZIP Code Phon e Number [facility] DEPARTMENT OF PATHOLOGY AND [address] [place] [address] [phone] [address] Folate level (04/05/2020 4:00 AM CDT)Only the most recent of2 resultswithin the time period is included. Pathologist Sig nature Folate 14.0 4.8 - 24.2 ng/mL [facility] Specimen Serum Performing Organization Address City/[facility] Phon e Number [facility] DEPARTMENT OF PATHOLOGY AND [address] [place] [address] [phone] [address] Vitamin B12 level (04/05/2020 4:00 AM CDT)Only the most recent of2 results within the time period is included. Vitamin B12 [phone] - 566 [facility] Comment: pg/mL HOSPITAL Significant overlap exists between normal and deficien cy states. However, most patients with deficiencies will have Ser um B12 <200 pg/mL. Specimen Serum Performing Organization Address City/[facility] Phon e Number [facility] DEPARTMENT OF PATHOLOGY AND [address] [place], [place] [address] [address] [address] Sedimentation rate (04/04/2020 9:00 PM CDT)Only the most recent of2 results within the time period is included. Pathologist Sig nature Sedimentation rate 6 0 - 20 mm/hr [facility] Specimen Plasma Performing Organization Address City/[facility] Phon e Number [facility] DEPARTMENT OF PATHOLOGY AND [address] [place], [place] [address] [address] [address] CBC hemogram (04/04/2020 9:00 PM CDT) Pathologist Sig nature WBC 7.66 4.50 - 11.00 k/uL [facility] RBC 4.23 4.20 - 5.50 m/uL [facility] HGB 12.2 12.0 - 16.0 g/dL [facility] HCT 36.8 (L) 37.0 - 47.0 % [facility] MCV 87.0 82.0 - 100.0 fL [facility] MCH 28.8 27.0 - 34.0 pg [facility] MCHC 33.2 31.0 - 37.0 g/dL [facility] RDW - SD 40.3 37.0 - 55.0 fL [facility] MPV 10.1 8.8 - 13.2 fL [facility] Platelet count 247 150 - 400 k/uL [facility] Nucleated RBC 0.00 /100 WBC [facility] Specimen Plasma Performing Organization Address City/[facility] Phon e Number [facility] DEPARTMENT OF PATHOLOGY AND [address] [place] [address] [phone] GENOMIC MEDICINE [facility] [address] [place] [address] Keppra (Levetiracetam) level (04/04/2020 8:15 PM CDT)Only the most recent of2 resultswithin the time period is included. [facility] Levetiracetam 23 12 - 46 ug/mL [facility] Comment: INTERPRETIVE INFORMATION: Keppra (Levetiracetam) Therapeutic Range: 12-46 ug/mL Toxic: Not well Established Pharmacokinetics of levetiracetam are affected by lamberto l function. Adverse effects may include somnolence, weakness, head ache and vomiting. This levetiracetam (Keppra) immunoassay uses the [employer] D Erydel reagents, which has known cross-reactivity with the dr norma collinsracetam (Briviact) and may report inaccurate resu lts. Patients transitioning from levetiracetam to brivarace goldstein or those who are using both medications should not monitor drug concentrations with the [employer] assay. These p atients should be monitored using a validated chromatographic methodology that distinguishes between drugs to determine drug con centrations. Performed By: [email or web address] [address] [place] [address] Classer: Gege Pierson MD Specimen Serum Performing Organization Address City/[facility] Phon e Number [facility] [address] [place] [address] [facility] [address] [place] [address] Urine drugs of abuse screen (04/04/2020 7:19 PM CDT)Only the most recent of2 resultswithin the time period is included. Pathologist [facility] Amphetamine screen, Negative [facility] Barbiturate screen, Negative [place] urine [facility] Benzodiazepine Positive (A) [place] screen, urine [facility] Cocaine screen, urine Negative [facility] Methadone metabolite Negative [place] (EDDP), urine [facility] Opiates screen, urine Negative [facility] Oxycodone screen, Negative [place] urine [facility] Phencyclidine screen, Negative [place] urine [facility] Tricyclic screen, Negative [place] urine [facility] Cannabinoid screen, Negative [place] urine Comment: [facility] Drug screen [facility] Amphetamines 1000 ng/mL Barbiturates 200 [...] requir ed. Specimen Urine Performing Organization Address City/[facility] Phon e Number [facility] DEPARTMENT OF PATHOLOGY AND [address] [place] [address] [address] Prolactin level (04/04/2020 7:07 PM CDT)Only the most recent of2 resultswithin the time period is included. Pathologist Sig [facility] Prolactin 13 5 - 23 ng/mL [facility] Specimen Plasma Performing Organization Address [facility] Phon e Number [facility] DEPARTMENT OF PATHOLOGY AND [address] [place] [address] [phone] [address] ECG 12 lead (04/04/2020 7:02 PM CDT)Only the most recent of2 resultswithin the time period is included. Pathologist Sig nature Ventricular rate 77 [facility] Atrial rate 77 [facility] GA interval 154 [facility] QRSD interval 82 [facility] QT interval 378 [facility] QTC interval 427 [facility] P axis 1 17 [facility] QRS axis 1 16 [facility] T wave axis 11 H MUSE EKG impression Normal sinus [facility] MUSE rhythm-Possible Anterior infarct , age undetermined-Abnormal ECG-In automated comparison with ECG of 12-NOV-2019 21:10,-No significant change was found- Specimen Narrative Performed At This result has an attachment that is no t available. Performing Organization Address City/[facility] Code Phon e Number [facility] MUSE [address] [place] [phone] CRITICAL CARE (04/04/2020 6:48 PM CDT) Narrative Performed At Max Ron MD 04/20/2020 3:37 PM Critical Care Performed by: Enoc Byers Authorized by: Max Ron MD Critical care provider statement: Critical care time (minutes): 20 Critical care was necessary to treat or prevent imminent or life-threatening deterioration of the following condit ions: [employer] failure or compromise Critical care was time [...] acid 1.1 0.5 - 2.2 mmol/L [facility] Specimen Plasma Performing Organization Address [facility] Phon e Number [facility] DEPARTMENT OF PATHOLOGY AND [address] [place] [address] [phone] [address] Phosphorus level (04/04/2020 6:33 PM CDT) Pathologist Sig nature Phosphorus 3.7 2.4 - 4.5 mg/dL [facility] L Specimen Plasma Performing Organization Address [facility] Phon e Number [facility] DEPARTMENT OF PATHOLOGY AND [address] [place] [address] [phone] [address] Comprehensive metabolic panel (04/04/2020 6:33 PM CDT)Only the most recent of3 resultswithin the time period is included. Sodium 138 135 - 148 [facility] mEq/L [facility] Potassium 3.6 3.5 - 5.0 [facility] mEq/L [facility] Chloride 105 98 - 112 [facility] mEq/L [facility] CO2 22 (L) 24 - 31 mEq/L [facility] Anion gap 11@ANIO 7 - 15 mEq/L [facility] BUN 7 6 - 20 mg/dL [facility] Creatinine 0.46 (L) 0.50 - 0.90 [facility] mg/dL [facility] Glucose 96 65 - 99 mg/dL [facility] Calcium 9.2 8.3 - 10.2 [facility] mg/dL [facility] Protein 7.1 6.3 - 8.3 [facility] Comment: g/dL HOSPITAL - 4.6-7.0 g/dL 1 week 4.4-7.6 g/dL 7 months-1year 5.1-7.3 g/dL 1-2 years 5.6-7.5 g/dL >3 years 6.0-8.0 g/dL 18-150 6.3-8.3 g/dL Albumin 3.8 3.5 - 5.0 [facility] g/dL [facility] A/G ratio 1.2 0.7 - 3.8 [facility] Alkaline phosphatase 64 35 - 104 U/L [facility] AST 20 10 - 35 U/L [facility] ALT 14 5 - 50 U/L [facility] Total bilirubin 0.4 0.0 - 1.2 [facility] mg/dL [facility] Specimen Plasma Performing Organization Address City/State/ZIP Code Phon e Number [facility] DEPARTMENT OF PATHOLOGY AND [address] [place] [address] [phone] GENOMIC MEDICINE [address] [address] PET Brain Metabolic Eval (03/30/2020 1:51 PM [...] cerebellar hypometabolism sugg ests a pharmacologic effect. [facility]-[id number] Procedure Note Interface, Radiology Results Incoming - [...] cerebellar hypometabolism sugg ests a pharmacologic effect. [facility]-[id number] Performing Organization Address City/State/ZIP Code Phon e Number [facility] [address] [place] [address] MRI Brain W Wo Contrast (03/27/2020 1:50 PM CDT)Only the most recent of2 resultswithin the time period is included. Specimen Narrative Performed At This result has an attachment that is no t available. EXAMINATION: [facility]IN [facility]: R56.9 Unspecified convulsions, Sei zures COMPARISON: Brain MRI on 11/13/[address] on 03/12/20. TECHNIQUE: High-resolution brain MRI wit hout and with intravenous gadolinium contrast acquired using 7T MRI with 1Tx/32Rx head coil. Acquired sequences include MPRAGE, [id number], T2 JAEL, T2 FLAIR, SWI, and DTI [...] abnormality identified to explain patien t's seizures. [facility]-[id number] Procedure Note [facility], Radiology Results Incoming - 03/28/2020 2:52 PM CDT EXAMINATION: MRI BRAIN W WO CONTRAST CLINICAL HISTORY: R56.9 Unspecified con vulsions, Seizures COMPARISON: Brain MRI on 11/13/[address] on 03/12/2020. TECHNIQUE: High-resolution brain MRI wit hout and with intravenous gadolinium contrast acquired using 7T MRI with 1Tx/32Rx head coil. Acquired sequences include MPRAGE, [id number], T2 JAEL, T2 FLAIR, SWI, and DTI [...] structural abnormality identified to explain patient's seizures. [facility]-[id number] Performing Organization Address City/State/ZIP Code Phon e Number [facility] [address] [place] [address] Epilepsy/Seizure monitoring (03/15/2020 12:14 PM CDT) Narrative [...] was recorded simultaneously with video throughout the [facility]. The EEG was visually inspected and analyzed [...] time period is included. Manual differential PERFORMED [facility] Neutrophils 51.0 39.0 - 69.0 % [facility] Lymphocytes 34.0 25.0 - 45.0 % [facility] Monocytes 13.0 (H) 0.0 - 10.0 % [facility] Eosinophils 2.0 0.0 - 5.0 % [facility] Basophils 0.0 0.0 - 1.0 % [facility] Metamyelocytes 0 % [facility] Promyelocytes 0 % [facility] Platelet slide review Sana adequate [facility] Anisocytosis Moderate [facility] Ovalocytes Moderate [facility] Enlarged platelets Moderate (A) [facility] Specimen Performing Organization Address City/State/ZIP Code Phon e Number [facility] DEPARTMENT OF PATHOLOGY AND [address] [place] [phone] GENOMIC MEDICINE [facility] [address] [place] [phone] Continuous EEG monitoring (11/15/2019 1:22 AM CDT) [...] level 20 (L) 37 - 145 ug/dL [facility] Iron binding capacity 335 200 - 400 ug/dL [facility] % Saturation 6.0 (L) 15.0 - 38.0 % [facility] Specimen Blood Performing Organization Address [facility] Phon e Number [facility] DEPARTMENT OF PATHOLOGY AND [address] [place] [address] Ferritin level (11/13/2019 4:00 AM CDT) Pathologist Sig nature Ferritin level <13 (A) 13 - 150 ng/mL [facility] Specimen Blood Performing Organization Address [facility] Phon e Number [facility] DEPARTMENT OF PATHOLOGY AND [address] [place] [address] [phone] [address] MARCELINO titer (11/12/2019 7:40 PM CDT) Pathologist Sig nature MARCELINO titer 1:160 (A) Not-Detected [facility] MARCELINO pattern Homogeneous (A) Not-Detected [facility] Specimen Blood Performing Organization Address City/[facility] Phon e Number [facility] DEPARTMENT OF PATHOLOGY AND [address] [place], [place] [phone] [address] [address] MARCELINO (11/12/2019 7:40 PM CDT) MARCELINO screen Positive (A) Negative [facility] Comment: HOSPITAL Test performed using [employer] DAPI MARCELINO kit (Indirect Immunofluorescence Assay) for Anti-Nuclear Antibody on [employer]yser 160 Analyzer. Specimen Blood Performing Organization Address City/[facility] Phon e Number [facility] DEPARTMENT OF PATHOLOGY AND [address] [place], [place] [address] [address] [place] [address] Creatine kinase, total (CPK) (11/12/2019 7:40 PM CDT) Pathologist Sig nature Creatine kinase 56 26 - 192 U/L [facility] HOSPITA L Specimen Performing Organization Address City/[facility] Phon e Number [facility] DEPARTMENT OF PATHOLOGY AND [address] [place] [address] [phone] [address] Cortisol level, random (11/12/2019 7:40 PM CDT) Cortisol, random 2 ug/dL [facility] Comment: HOSPITAL Reference Ranges are not established for non-timed Cor tisol levels. Reference Range for Timed Cortisol: 6 - 10 AM 6 - 18 ug/d l 4 - 8 PM 3 - 11 ug/ dl Specimen Blood Performing Organization Address [facility] Phon e Number [facility] DEPARTMENT OF PATHOLOGY AND [address] [place] [address] [phone] [address] [address] Cervical Spine Wo Contrast (11/12/2019 6:12 [...] subluxation identif ied in the cervical spine. [facility]-[id number] Procedure Note Hm Interface, Radiology Results Incoming - 11/12/2019 6:20 [...] subluxation identif ied in the cervical spine. [facility]-[id number] Performing Organization Address City/State/ZIP Code Phon e Number [facility] [address] [place] [address] CT Maxillofacial Wo Contrast (11/12/2019 6:09 PM CDT) Specimen Narrative Performed At EXAMINATION: CT MAXILLOFACIAL WO CONTRAS T [facility] CLINICAL HISTORY: Facial trauma fx sofy [...] unre markable. The paranasal sinuses are clear. [facility]-[id number] Procedure Note Interface, Radiology Results Incoming - [...] unre markable. The paranasal sinuses are clear. [id number] Performing Organization Address [facility] Phon e Number [facility] [address] [place] [address] XR Chest 1 Vw Portable (11/12/2019 5:35 [...] There is no acute cardiopulmonary dis ease. [id number] Procedure Note Interface, Radiology Results Incoming - [...] There is no acute cardiopulmonary dis ease. [id number] Performing Organization Address [facility] Phon e Number [facility] [address] [place] [address] Alcohol level, blood (11/12/2019 5:04 PM CDT) Alcohol None Detected mg/dL [facility] Comment: HOSPITAL Normal None Detected Legal Intoxication in [place] 80 mg/dL (0.08%) - Whole Blood Toxic Concentration 200 mg/dL (0.2%) Potentially Fatal 350 - 500 mg/dL (0. 35 - 0.5%) Alcohol percent None Detected % [facility] Specimen Blood Performing Organization Address [facility] Phon e Number [facility] DEPARTMENT OF PATHOLOGY AND [address] [place] [phone] GENOMIC MEDICINE [address] [address] hCG qualitative, urine screen (11/12/2019 2:44 PM CDT) hCG qualitative, NegativeComment: [facility] urine Sensitivity of HCG HOSPITAL test: 25 mIU/mL Specimen Urine Performing Organization Address City/[facility] Phon e Number [facility] DEPARTMENT OF PATHOLOGY AND [address] [place] [phone] GENOMIC MEDICINE [facility] [address] [place] [address] after 06/17/2019 Advance Directives For more information, please contact: [phone] Type Date Recorded 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
--- OUTSIDE RECORDS SUMMARY | 2020-06-17 09:21 | XMS REPORT | Continuity of Care Document ---
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 Interpretation Comments Ventricular rate (test 77 code = 253) Atrial rate (test code 77 = 255) OH interval (test code 154 = 266) QRSD [...] are captured. Jojo Cruz MD ICD-10 Code: P955Rfghaxs MethodistSyphilis total mxzbyawf8874-54-85 10:02:20 Test Item Value Reference Range Interpretation Comments Syphilis total Non-reactive Non-reactive No serologica l antibody (test evidence of code = 6194) syphilis infect ion. LUIS MIGUEL (test code = Unable to perform LUIS MIGUEL) testing, specimen is _HEMOLYZED___. Recollect requested for __K__ (tests). __YIFANJONATHAN MARGARITA/WT18 (name/location) notified by ___JT_ (tech ID) at __ 04/05/2020 07:01 __ (date/time). Credit issued.Unable to perform testing, specimen is _HEMOLYZED___. Recollect requested for _HCYT (tests). __LILA JOHN (name/location) notified by ___JT_ (tech ID) at __ 04/05/2020 09:26 __ (date/time). Credit issued. Nunez MethodistRheumatoid ghzesc9481-08-79 09:01:34 Test Item Value Reference Range Interpretation Comments Rheumatoid factor (test <10 0- 13 IU/mL code = 12529-3) LUIS MIGUEL (test code = LUIS MIGUEL) Unable to perform testing, specimen is _HEMOLYZED___. Recollect requested for __K__ (tests). __LILA JOHN (name/location) notified by ___JT_ (tech ID) at __ 04/05/2020 07:01 __ (date/time). Credit issued. Nunez MethodistVitamin B12 vduej3051-01-29 06:58:42 Test Item Value Reference Range Interpretation Comments Vitamin B12 (test 739 pg/mL 211-946 Significan t overlap code = 2132-9) exists betwee n normal and deficiency states.However, most patients with deficiencies wi ll have Serum B12 <2 00 pg/mL. Nunez MethodistFolate ujuvz6562-16-42 06:58:42 Test Item Value Reference Range Interpretation Comments Folate (test code = 2284-8) 14.0 ng/mL 4.8-24.2 Nunez MethodistMagnesium zigso8362-36-51 06:52:05 Test Item Value Reference Range Interpretation Comments Magnesium (test code = 12761-1) 1.8 mg/dL 1.6-2.6 Nunez MethodistT4, nxnw1347-66-66 06:52:05 Test Item Value Reference Range Interpretation Comments T4, free (test code = 3024-7) 1.1 ng/dL 0.9-1.7 Nunez MethodistThyroid stimulating tcgsjeh3162-84-27 06:52:05 Test Item Value Reference Range Interpretation Comments TSH (test code = 3016-3) 1.26 0.27- 4.20 uIU/mL Enrique FcyehqxaqW45780-63-13 06:52:05 Test Item Value Reference Range Interpretation Comments T3 (test code = 3053-6) 89 ng/dL 80-200 Enrique PiedraC-reactive vbxrvdm5941-88-77 06:52:05 Test Item Value Reference Range Interpretation Comments CRP (test code = 1988-) <0.30 0-0.5 Enrique PiedraHIV Ag/Ab kjrwotrjhnl9699-06-72 06:48:46 Test Item Value Reference Range Interpretation Comments HIV Ag/Ab combination (test code Non-reactive Non-reactive = 5299) Enrique Akhtaredimentation jimd3221-65-33 22:23:01 Test Item Value Reference Range Interpretation Comments Sedimentation rate (test code = 6 0- 20 mm/hr 05380-4) Ernique PiedraUrine drugs of abuse hwdbwe7319-97-23 21:28:59 Test Item Value Reference Interpretation Comments Range Amphetamine screen, Negative urine (test code = 3349-8) Barbiturate screen, Negative urine (test code = 3377-9) Benzodiazepine Positive A screen, urine (test code = 3390-2) Cocaine screen, Negative urine (test code = 3397-7) Methadone Negative metabolite (EDDP), urine (test code = 65939-9) Opiates screen, Negative urine (test code = 3879-4) Oxycodone screen, Negative urine (test code = 48912-0) Phencyclidine Negative screen, urine (test code = 3936-2) Tricyclic screen, Negative urine (test code = 03744-1) Cannabinoid screen, Negative Drug scr een minimum [...] ired. Lab Interpretation Abnormal (test code = 48359-7) Enrique PiedraComprehensive metabolic wanrq7997-38-28 21:27:39 Test Item Value Reference Range Interpretation Comments Sodium (test code = 138 135- 148 mEq/L 2951-2) Potassium (test code = 3.6 3.5- 5.0 mEq/L 2823-3) Chloride (test code = 105 98- 112 mEq/L 2074-0) CO2 (test code = 2027-9) 22 24- 31 mEq/L L Anion gap (test code = 11@ANIO 7- 15 mEq/L 42495-2) BUN (test code = 3094-0) 7 mg/dL 6-20 Creatinine (test code = 0.46 mg/dL 0.5-0.9 L 2160-0) Glucose (test code = 96 mg/dL 65-99 5-7) Calcium (test code = 9.2 mg/dL 8.3-10.2 19506-7) Protein (test code = 7.1 g/dL 6.3-8.3 -[place] n 2885-2) 4.6-7.0 g/dL1 week 4.4-7 .6 g/dL7 months-1y ear 5.1-7 .3 g/dL1-2 years 5.6-7 .5 g/dL>3 years 6.0-8 .0 g/iB19-889 6.3-8 .3 g/dL Albumin (test code = 3.8 g/dL 3.5-5 1750-7) A/G ratio (test code = 1.2 0.7-3.8 9-0) Alkaline phosphatase 64 U/L 35-104 (test code = 6768-6) AST (test code = 1920-8) 20 U/L 10-35 ALT (test code = 1742-6) 14 U/L 5-50 Total bilirubin (test 0.4 mg/dL 0-1.2 code = 1974-2) Lab Interpretation (test Abnormal code = 70999-7) Enrique MethodistLactic acid level, SEPSIS - Now and repeat 2x every 3 hours 2020-04-04 21:27:38 Test Item Value Reference Range Interpretation Comments Lactic acid (test code = 05998-0) 1.1 mmol/L 0.5-2.2 Enrique MethodistPhosphorus uftfc8551-23-50 21:27:37 Test Item Value Reference Range Interpretation Comments Phosphorus (test code = 2777-1) 3.7 mg/dL 2.4-4.5 [facility] dnszqeom2382-61-76 21:21:43 Test Item Value Reference Range Interpretation Comments WBC (test code = 14270-3) 7.66 4.50- 11.00 k/uL RBC (test code = 00318-4) 4.23 m/uL 4.2-5.5 HGB (test code = 718-7) 12.2 g/dL 12-16 HCT (test code = 4544-3) 36.8 % 37-47 L MCV (test code = 787-2) 87.0 fL 82-100 MCH (test code = 785-6) 28.8 pg 27-34 MCHC (test code = 786-4) 33.2 g/dL 31-37 RDW - SD (test code = 67614-1) 40.3 fL 37-55 MPV (test code = 94086-4) 10.1 fL 8.8-13.2 Platelet count (test code = 247 150- 400 k/uL 57034-2) Nucleated RBC (test code = 0.00 /100 WBC 22260-9) Lab Interpretation (test code = Abnormal 12978-3) Strawberry MethodistProlactin pmuao4439-32-86 21:11:11 Test Item Value Reference Range Interpretation Comments Prolactin (test code = 2842-3) 13 ng/mL 5-23 Strawberry MethodistCRITICAL EFRM1074-23-76 18:48:10BMax gleason MD 04/20/2020 3:37 PMCritical CarePerformed by: Lila ByersAuthorized by: Max Ron MD Critical care provider statement: Critical care time (minutes): 20 Critical care was necessary to treat or prevent imminent or life- threatening deterioration of the following conditions: NON DESTRUCTIVE TESTING TECHNICIAN failure or compromise Critical care was [...] for this patient from another provider.: Hawa CruzistT Brain Metabolic Ocds1002-66-32 14:42:07Hm Interface, Radiology Results - 03/30/2020 2:45 [...] interictal study.2.Diffuse cerebellar hypometabolism suggests a pharmacologic effect.[facility]-[id number] MethodistContinuous EEG uqankwiugi9407-73-19 17:34:53CONTINUOUS VIDEO-EEG MONITORING REPORT Patient Name: Heather [...] No seizures occurred. ICD-10 Code: R56.9[place] MethodistANA wyhsb6090-08-24 13:12:21 Test Item Value Reference Range Interpretation Comments MARCELINO titer (test code = 73206-4) 1:160 Not-Detected A MARCELINO pattern (test code = 44212-5) Homogeneous Not-Detected A Lab Interpretation (test code = Abnormal 37960-5) Nunez UrrftcvulPNT8338-35-89 13:08:33 Test Item Value Reference Range Interpretation Comments MARCELINO screen (test code Positive Negative A Test p erformed using = 550) NOVA Lite DAPI MARCELINO kit (Indirect Immunofluoresce nce Assay) for Anti -Nuclear Antibody on Ap[facility] LaboratoriesA-Lyser 16 0 Analyzer. Lab Interpretation Abnormal (test code = 63050-1) Enrique MethodistManual bygtfxxpiznb4231-11-56 08:57:11 Test Item Value Reference Range Interpretation Comments Manual differential (test code = PERFORMED 09832-5) Neutrophils (test code = 51.0 % 39-69 52083-1) Lymphocytes (test code = 34.0 % 25-45 39622-3) Monocytes (test code = 84918-8) 13.0 % 0-10 H Eosinophils (test code = 2.0 % 0-5 38195-6) Basophils (test code = 86305-3) 0.0 % 0-1 Metamyelocytes (test code = 0 % 740-1) Promyelocytes (test code = 0 % 783-1) Platelet slide review (test code Sana adequate = 23729-5) Anisocytosis (test code = 702-1) Moderate Ovalocytes (test code = 774-0) Moderate Enlarged platelets (test code = Moderate A 62538-4) Lab Interpretation (test code = Abnormal 91327-8) Strawberry MethodistContinuous EEG ftgwasmfjf9341-43-16 07:42:19CONTINUOUS VIDEO- EEG MONITORING REPORT Patient Name: [...] independently. No seizures occurred. ICD-10 Code: R56.9[place] Buddhist Continuous EEG uxyhhyqdrn2666-20-80 07:19:24 CONTINUOUS VIDEO-EEG MONITORING REPORT Patient Name: [...] seizures occurred. ICD-10 Code: R56.9[facility] MethodistEEG (routine) - Baseline AST3207-75-26 06:43:32EEG RECORDING AWAKE & ASLEEP - Baseline [...] with the above findings. Toya Rojo MethodistFerritin nmdyy9816-67-21 07:54:01 Test Item Value Reference Range Interpretation Comments Ferritin level (test code = 2276-4) <13 13-150 A Lab Interpretation (test code = Abnormal 64173-0) Strawberry MethodistTotal iron binding pvcjfowx0609-95-33 07:50:12 Test Item Value Reference Range Interpretation Comments Iron level (test code = 2498-4) 20 ug/dL 37-145 L Iron binding capacity (test code = 335 ug/dL 395-812 2004-7) % Saturation (test code = 2502-3) 6.0 % 15-38 L Lab Interpretation (test code = Abnormal 75320-5) Nunez MethodistCortisol level, zweulx9510-77-75 20:48:37 Test Item Value Reference Range Interpretation Comments Cortisol, random 2 ug/dL Reference R anges are not (test code = 2143-6) establi shed for non-timed Cortisol levels .Reference Range for Timed Cortisol: 6 - 10 AM 6 - 18 ug/dl 4 - 8 PM 3 - 11 ug/ dl Strawberry MethodistCreatine kinase, total (CPK)2019-11-12 20:42:35 Test Item Value Reference Range Interpretation Comments Creatine kinase (test code = 2157-6) 56 U/L 26-192 Strawberry MethodistCT Cervical Spine Wo Zrqwowkv8367-01-49 18:17:20Hm Interface, Radiology Results 11/12/2019 6:20 PM [...] or subluxation identified in the cervical spine.[facility]-[id number] MethodistCT Maxillofacial Wo Skisfbuw8197-42-47 18:15:46Hm Interface, Radiology Results 11/12/2019 6:18 PM [...] tissues are unremarkable.The paranasal sinuses are clear.[facility]-5FC02462NTEfhhjzy Buddhist Alcohol level, sxqts8758-54-54 18:06:03 Test Item Value Reference Range Interpretation Comments Alcohol percent None Detected % Normal (test code = None Detec tedLegal 5643-2) Intoxication in [place] 80 mg/dL (0.08% ) - Whole BloodToxi c Concentration 200 mg/dL (0.2%)Potential ly Fatal 350 - 500 mg/dL (0.35 - 0 .5%) [facility] 1 Vw Ivxildxi7414-47-35 17:37:03Hm Interface, Radiology Results 11/12/2019 5:40 PM CDTEXAMINATION: XR CHEST 1 VW PORTABLECLINICAL HISTORY: SOBXR CHEST 1 VW PORTABLE images are submittedCOMPARISON: NONEFINDINGS:The cardiac silhouette is normal in size. The pulmonary vasculature is within normal limits. The lung zones have no focal area of consolidation. There is no pleural effusion or pneumothorax.IMPRESSION:1. Thereis no acute cardiopulmonary disease.STJO-1NI6780FEPXmeuueb MethodisthCG qualitative, urine kwpdoo0375-68-30 15:26:18 Test Item Value Reference Range Interpretation Comments hCG qualitative, Negative Sensitivity of HCG test: urine (test code = 25 mIU/mL 2106-3) Strawberry MethodistRPR Flxcoafjsll5390-83-54 16:47:08 Test Item Value Reference Range Interpretation [...] = 06-14-2020 N Expiration Dt) Thyroid Stimulating Jmvbplv4627-26-03 06:31:44 Test Item Value Reference Range Interpretation Comments TSH (test code = TSH) 3.830 mIU/mL 0.270-4.200 Lipid Qqpuk8334-62-21 06:24:40 Test Item Value Reference Range Interpretation Comments Cholesterol Total 152 mg/dL 0-200 RISK OF HE ART (test code = DISEASEPublishe d by Cholesterol Total) [place] [employer] Marcelino lyte Optimal Borderl ine [...] LDL/HDL Ratio=L DL Calc/HDL Chol Urine Drug Jaxppp0685-79-14 21:53:06 Test Item Value Reference Range Interpretation [...] if desired . Urinalysis with Culture, if ojjzkonqk0785-63-75 21:40:53 Test Item Value Reference Range Interpretation [...] Indicated Not Indicated Micro Ind?) Comprehensive Metabolic Arxoy4781-09-99 21:34:15 Test Item Value Reference Range Interpretation [...] = A/G 1.6 ratio N Ratio) Alcohol Eppaa8467-28-99 21:34:15 Test Item Value Reference Range Interpretation Comments Ethanol Level (test <0.00 g/dL 0.00-0.01 Intoxica vandana 0.080 g/dL code = Ethanol or more Level) Ethanol Inst (test <0 N code = Ethanol Inst) Comprehensive Metabolic Btzxa9749-92-19 21:34:15 Test Item Value Reference Range Interpretation [...] National Kidney Foundation, http://nkdep.ni h.gov Comprehensive Metabolic Kibhv3713-74-43 21:34:15 Test Item Value Reference Range Interpretation [...] ag e have not been validated by [facility] MDRD study and should be interpreted wit [...] Foundation, http://nkdep.ni h.gov Complete Blood Count with Yqdxwelrvdlc4974-33-75 21:15:24 Test Item Value Reference Range Interpretation [...] code = IPF) 0 % N Automated Nrcyiesozhpu0285-62-25 21:15:24 Test Item Value Reference Range Interpretation [...] = Baso 0.08 x10 0.00-0.21 Absolute) IG Gfurd3257-22-00 21:15:24 Test Item Value Reference Range Interpretation Comments IG (test code = IG) 0.3 % 0.0-5.0 IG Abs (test code = IG Abs) 0 x10 N HCG Qualitative Muqif1486-79-20 20:45:17 Test Item Value Reference Range Interpretation [...] 72 hours. Lot # (test code = 449858 N Lot #) Expiration Dt (test 2020-12-12 N code = Expiration Dt) Neg Control (test Negative code = Neg Control) Pos Control (test Positive code = Pos Control) Internal QC (test Acceptable code = Internal QC) RPR Omtcitjsjfw2775-59-33 12:07:58 Test Item Value Reference Range Interpretation [...] = 04-14-2020 N Expiration Dt) Thyroid Stimulating Itqkpvt8555-78-11 07:59:52 Test Item Value Reference Range Interpretation Comments TSH (test code = TSH) 0.717 mIU/mL 0.270-4.200 Lipid Hyuij4310-27-80 07:52:46 Test Item Value Reference Range Interpretation Comments Cholesterol Total 141 mg/dL 0-200 RISK OF HE ART (test code = DISEASEPublishe d by Cholesterol Total) [place] [employer] Marcelino lyte Optimal Borderl ine [...] LDL/HDL Ratio=L DL Calc/HDL Chol Urine Drug Kihzag0019-20-10 15:27:40 Test Item Value Reference Range Interpretation [...] matory test if desired . Comprehensive Metabolic Hoqjw2934-80-73 15:15:20 Test Item Value Reference Range Interpretation [...] A/G 1.9 ratio N Ratio) Comprehensive Metabolic Yjurn2459-23-78 15:15:20 Test Item Value Reference Range Interpretation [...] the National Kidney Foundation, http://nkdep.ni h.gov Alcohol Foirv2683-41-95 15:15:20 Test Item Value Reference Range Interpretation Comments Ethanol Level (test <0.00 g/dL 0.00-0.01 Intoxica vandana 0.080 g/dL code = Ethanol or more Level) Ethanol Inst (test <0 N code = Ethanol Inst) Comprehensive Metabolic Ryiqx3954-32-23 15:15:20 Test Item Value Reference Range Interpretation [...] the National Kidney Foundation, http://nkdep.ni h.gov Urinalysis Kcjmmshntbt7741-82-89 15:11:20 Test Item Value Reference Range Interpretation Comments UA WBC (test code = UA WBC) 6-10 0-5 A UA RBC (test code = UA RBC) 0-5 0-5 UA Bacteria (test code = UA Moderate A Bacteria) UA Squam Epithelial (test code = UA TNTC A Squam Epithelial) UA Mucous (test code = UA Mucous) Few A Urinalysis with Microscopic if ytzeoytxp6832-05-66 14:42:58 Test Item Value Reference Range Interpretation [...] GL_SJM_UA_MICRO _IN D Complete Blood Count with Stownssmdtks7764-18-46 14:37:26 Test Item Value Reference Range Interpretation [...] code = IPF) 0 % N Automated Aurtyfcynafg8425-39-73 14:37:26 Test Item Value Reference Range Interpretation [...] = Baso 0.05 x10 0.00-0.21 Absolute) IG Rdlxz3433-18-18 14:37:26 Test Item Value Reference Range Interpretation Comments IG (test code = IG) 0.2 % 0.0-5.0 IG Abs (test code = IG Abs) 0 x10 N HCG Qualitative Kdfrb6026-87-60 14:34:08 Test Item Value Reference Range Interpretation [...] 72 hours. Lot # (test code = 288950 N Lot #) Expiration Dt (test 2020-03-14 N code = Expiration Dt) Neg Control (test Negative code = Neg Control) Pos Control (test Positive code = Pos Control) Internal QC (test Acceptable code = Internal QC) DRUGS OF ABUSE SCREEN [id number] 17:11:00 Test Item Value Reference Range Interpretation [...] = [place]) concentrati on: 300 ng/mL URINALYSIS VCKKFBTE5568-10-82 17:08:00 Test Item Value Reference Range Interpretation [...] (test code = MOD NONE BACU) URINALYSIS [id number] 17:00:00 Test Item Value Reference Range Interpretation [...] (test code = NONE BACU) HCG SERUM [id number] 16:52:00 Test Item Value Reference Range Interpretation Comments HCG SERUM QUAL (test code = HCGQL) NEGATIVE NEGATIVE - CT HEAD/BRAIN W/O [id number] 16:51:00 FAX: Theresa Fields MD [place]: St: REG Name: HEATHER HOPE [facility] : 1990 Age/S: 28/F [address] [facility] Unit: [id number] [place]: [place] [id number] Acct: [id number] Dis Date: Status: REG ER PHONE #: [phone] Exam Date: 02/23/2019 1642 FAX #: [phone] Reason: SEIZURE EXAMS: CPT CODE: [id number] CT HEAD/BRAIN W/O CONT [id number] Dictation location: U19. CT HEAD WITHOUT CONTRAST. [...] MD Technologist: HEATHER DICKSON Trnscrd Dt/Tm: 02/23/2019 (7871) [email or web address] Orig Print D/T: S: 02/23/2019 (9124 PAGE 1 Signed ReportBASIC METABOLIC [id number] 16:31:00 Test Item Value Reference Range Interpretation [...] CA) 8.8 mg/dl 8.0-10.5 N BASIC METABOLIC [id number] 16:26:00 Test Item Value Reference Range Interpretation [...] code = CA) mg/dl 8.0-10.5 CBC W/AUTO [id number] 16:15:00 Test Item Value Reference Range Interpretation [...] 3-60 N code = VLDL) RAPID PLASMA [id number] 10:31:00 Test Item Value Reference Range Interpretation Comments RAPID PLASMA REAGIN (test code = Nonreactive Nonreactive RPR) GLYCOSYLATED HEMOGLOBIN (HA1C)2018-12-07 10:05:00 Test Item Value Reference Range Interpretation Comments GLYCOSYLATED HEMOGLOBIN (HA1C) 5.8 % TOT HB 4.5-6.2 N (test code = GLYHGB) [id number] 15:31:00 Test Item Value Reference Range Interpretation Comments ACETAMINOPHEN (test < 1 MCG/ML 10-30 L Acetamin ophen is code = ACET) possibly toxic at levels of: 1. m ore than 150 MCG/ML 4 hours post kaylin stion. 2. more than 5 0 MCG/ML 12 hours post ingestion. [id number] 15:31:00 Test Item Value Reference Range Interpretation Comments SALICYLATE (test code = < 3 MG/DL 0-20 N Refe rence Range: BOSSMAN) Analgesic...... ...... ...... < 10 mg /dl Therapeutic.... ...... ...... 15-20 mg /dl Mild Toxicity....... ...... . > 30 mg/dl Severe Toxicity....... ..... > 60 mg/dl UA RFLX [id number] 14:18:00 Test Item Value Reference Range Interpretation [...] Clean Catch (test code = UASPEC) UA [id number] 14:18:00 Test Item Value Reference Range Interpretation Comments UA WBC (test code = WBCU) < 10 #/hpf <10 UA RBC (test code = RBCU) 0-2 #/hpf NONE SEEN A UA BACTERIA (test code = BACU) RARE #/hpf NONE SEEN UA SQUAMOUS CELLS (test code = 0 - 20 #/lpf <100 SQU) UA MUCUS (test code = MUCU) 1+ #/lpf NONE SEEN BASIC METABOLIC [id number] 14:16:00 Test Item Value Reference Range Interpretation [...] 9.4 MG/DL 8.7-10.5 N CA) HEPATIC FUNCTION [id number] 14:16:00 Test Item Value Reference Range Interpretation [...] 50-136 N TOTAL (test code = ALKP) [id number] 14:16:00 Test Item Value Reference Range Interpretation Comments CK (test code = CKT) 87 Units/L 26-192 N [id number] 14:16:00 Test Item Value Reference Range Interpretation Comments ALCOHOL (test code = < 3 MG/DL 0-10 N 0 - 10: Should be ALC) interpreted as NEGATIVE. 11 - 50: None to mild euphoria. 51 - 100: Mild influence on vision and dark adapta tion. > 80: Legal intoxication; D epression of NON DESTRUCTIVE TESTING TECHNICIAN; Increasing degr ee of poisoning. > 400: Fatalities repo rted. Results are for medical purposes only a nd not forlegal or emp loyment evaluative purp oses. BASIC METABOLIC [id number] 14:09:00 Test Item Value Reference Range Interpretation [...] 9.4 MG/DL 8.7-10.5 N CA) HEPATIC FUNCTION [id number] 14:09:00 Test Item Value Reference Range Interpretation [...] TOTAL (test Units/L 50-136 code = ALKP) [id number] 14:09:00 Test Item Value Reference Range Interpretation Comments CK (test code = CKT) Units/L 26-192 [id number] 14:09:00 Test Item Value Reference Range Interpretation Comments ALCOHOL (test code = ALC) MG/DL 0-10 LACTIC ACID [id number] 13:50:00 Test Item Value Reference Range Interpretation Comments LACTIC ACID POC 0.97 MMOL/L 0.90-1.70 N Performed by certified (test code = LACTP) test and research reactor operator at [facility] [id number] 13:48:00 Test Item Value Reference Range Interpretation Comments GLUBED (test code = 88 MG/DL 65-99 N Performe d by certified GLUBED) test and research reactor operator at [facility] DRUG OF ABUSE SCREEN [id number] 13:43:00 Test Item Value Reference Interpretation Comments [...] preliminary PHENCU) results thatmay be confirmed by al agusnatyadira methods (i.e., GC/MS) at [facility]. Results of scre en may not be usedin crimi nal justice, job performance or professionalcre dential review, or infa nt custody issues. Negativ e Hamer Level ng/ml ------- ----- Cocaine 300 Methamp hetamine (Ecstacy) 500 Cannabinoids (THC) 50 Amphetamine 1000 Barbiturate s 200 Benzodia zepines 200 Opiat es 300 Ph encyclidine (PCP) 25 UR HCG [id number] 13:39:00 Test Item Value Reference Range Interpretation [...] using aquantitative h CG assay. UA RFLX [id number] 13:38:00 Test Item Value Reference Range Interpretation [...] Clean Catch (test code = UASPEC) UA [id number] 13:38:00 Test Item Value Reference Range Interpretation Comments UA WBC (test code = WBCU) #/hpf <10 UA RBC (test code = RBCU) #/hpf NONE SEEN UA SQUAMOUS CELLS (test code = SQU) #/lpf <100 UA RFLX [id number] 13:38:00 Test Item Value Reference Range Interpretation [...] Clean Catch (test code = UASPEC) UA [id number] 13:38:00 Test Item Value Reference Range Interpretation Comments UA WBC (test code = WBCU) #/hpf <10 UA RBC (test code = RBCU) #/hpf NONE SEEN UA SQUAMOUS CELLS (test code = SQU) #/lpf <100 CBC W/AUTO [id number] 13:26:00 Test Item Value Reference Range Interpretation [...] = BA#) 0.05 x10 3/uL 0.0-0.2 N [id number] 19:07:00 Test Item Value Reference Interpretation Comments Range LEVETIRACETAM 28.7 ug/mL 10.0-40.0 This test was developed and (test code = its performance LEVTAM) characteristics determined by [facility]. It has not been cleared orappro froylan by the Food and Drug Administration. Performed At: [facility] [place] [address] [facility] [place] [id number] ra Larissa MENDOZA Ph:[phone] BASIC METABOLIC [id number] 04:58:00 Test Item Value Reference Range Interpretation [...] code = 8.9 MG/DL 8.7-10.5 N CA) [id number] 04:58:00 Test Item Value Reference Range Interpretation Comments MAGNESIUM (test code = MAG) 1.9 MG/DL 1.8-2.4 N CBC W/AUTO [id number] 04:08:00 Test Item Value Reference Range Interpretation [...] 0.0-0.2 N NRBC#) - MRI BRAIN W/O [id number] 13:51:00 Patient Name: HEATHER HOPE Unit No: [id number] EXAMS: CPT CODE: [id number] MRI BRAIN W/O CONTRAST [id number] Reason: sz INDICATION: Seizure COMPARISON: CT brain, [...] Gutierrez MD Technologist: Andre FRANCIS Trscrpt Dt/ ([id number])[email or web address] Orig Print D/T: S: 09/17/2018 (2892) [facility] CntNAME: HEATHER HOPE [address] PHYS: Felecia Dominguez MD [facility], [place] [address] : 1990 AGE: 27 SEX: F LOC: D.D313 1 PHONE #: [phone] EXAM DATE: 09/17/2018 STATUS: ADM IN FAX #: RAD NO: DC Dt: PAGE 1 Signed [id number] 07:25:00 Test Item Value Reference Range Interpretation Comments PROLACTIN (test code = 24.6 ng/mL 4.8-23.3 H Perfo rmed At: HD PROLAC) [facility] [address] [id number] Sb Man MD Ph:[phone] UA RFLX MICROSCOPIC [id number] 19:02:00 Test Item Value Reference Range Interpretation [...] UACULT) URINE SOURCE: Clean CatchUA RFLX MICROSCOPIC [id number] 18:56:00 Test Item Value Reference Range Interpretation [...] (test code = UACULT) URINE SOURCE: Clean [id number] 15:56:00 Test Item Value Reference Range Interpretation Comments CK (test code = CKT) 34 Units/L 26-192 N BASIC METABOLIC [id number] 12:57:00 Test Item Value Reference Range Interpretation [...] code = 8.6 MG/DL 8.7-10.5 L CA) [id number] 12:57:00 Test Item Value Reference Range Interpretation Comments CK (test code = CKT) 32 Units/L 26-192 N CBC W/AUTO [id number] 12:33:00 Test Item Value Reference Range Interpretation [...] 3/uL 0.0-0.2 N NRBC#) TOTAL IRON BINDING [id number] 05:50:00 Test Item Value Reference Range Interpretation Comments SERUM IRON (test code = IRON) 17 MCG/DL 50-170 L TOTAL IRON BINDING CAPACITY (test 363 MCG/DL 280-400 N code = TIBC) IRON SATURATION (test code = 5 % 15-50 L FESAT) [id number] 05:50:00 Test Item Value Reference Range Interpretation Comments FERRITIN (test code = LULI) 11 NG/ML 3-105 N HEPATIC FUNCTION [id number] 05:32:00 Test Item Value Reference Range Interpretation [...] code = ALKP) - CT HEAD/BRAIN W/O [id number] 20:19:00 Patient Name: HEATHER HOPE Unit No: [id number] EXAMS: CPT CODE: [id number] CT HEAD/BRAIN W/O CONT [id number] Reason: seizure TECHNIQUE: Contiguous 5 mm images [...] [facility] NAME: HEATHER HOPE [id number] [facility] PHYS: HOGJA. - Keanu Váz[place] [address] : 1990 AGE: 27 SEX: F LOC: RichKIN PHONE#: [phone] EXAM DATE: 09/14/2018 STATUS: REG ER FAX #: RAD NO: DC Dt: PAGE 1 Signed Report- XR CHEST 1 [id number] 20:18:00 Patient Name: HEATHER HOPE Unit No: [id number] EXAMS: CPT CODE: [id number] XR CHEST 1 V 64809 Reason: screen for pneumonia FINDINGS: Single view ofthe chest shows normal heart size and pulmonary vasculature. The lungs are clear bilaterally. There is no focal infiltrate, pleural effusion or pneumothorax. IMPRESSION: No a cute cardiopulmonary findings at 2018 Reported and signed by: Lashell Jimenez MD CC: Keanu Vázquez MD; Cristiane Heath Technologist: Edel BURNS Trscrpt Dt/ (2017)Aurelio.DKW Orig PrintD/T: S: 09/14/2018 (2020) [facility] NAME: HEATHER HOPE N[address] PHYS: NGA.01 - Keanu Váz[place] [address] : 1990 AGE: 27 SEX: F LOC: MATT PHONE #: [phone] EXAM DATE: STATUS: REG ER FAX #: RAD NO: DC Dt: PAGE 1 Signed ReportHCG SERUM [id number] 20:04:00 Test Item Value Reference Range Interpretation [...] using aquantitative h CG assay. BASIC METABOLIC [id number] 19:51:00 Test Item Value Reference Range Interpretation [...] 9.3 MG/DL 8.7-10.5 N CA) CBC W/AUTO [id number] 19:46:00 Test Item Value Reference Range Interpretation [...] BA#) 0.05 x10 3/uL 0.0-0.2 N BLOOD [id number] 10:00:00 Test Item Value Reference Range Interpretation Comments CULTURE (BEAKER) (test No growth in 5 days code = 1095) HCG, QUANTITATIVE, [id number] 15:37:00 Test Item Value Reference Range Interpretation Comments GONADOTROPIN, CHORIONIC (HCG) 09327 mIU/mL 0-10 H QUANT (BEAKER) (test code = 649) Non- Females: <10 mIU/mL Females: Gestation Age Reference Range(mIU/mL) 0.2-1 Week 5-50 1-2 Weeks 50-500 2-3 Weeks 100-5,000 3-4Weeks 500-10,000 4-5 Weeks 1,000-50,000 5-6 Weeks 10,000-100,000 6-8 Weeks 15,000-200,000 2-3 Months 10,000-100,000COMPREHENSIVE METABOLIC [id number] 15:10:00 Test Item Value Reference Range Interpretation [...] PATIEN TS. CBC W/PLT COUNT & AUTO [id number] 14:53:00 Test Item Value Reference Range Interpretation [...] (test code = 2801) U/S, , FIRST [id number] 07:52:00Reason for exam:-> Reason for exam:->please include [...] 1 day. An embryonic pole is evident. Hodgen-rump length measures 0.63 cm, correlating with estimated [...] MDReport Verified Date/Time: 05/17/2017 07:52:37 Reading Location: [facility] C013X [facility] Consult Reading Room PREGNANCY SCREEN, [id number] 05:28:00 Test Item Value Reference Range Interpretation Comments TEST URINE (BECAROLE) (test Positive code = 583) MR, BRAIN, WITHOUT [id number] 18:54:00Reason for exam:->Stroke evaluationFINAL REPORT MRI brain [...] Parra Verified Date/Time: 05/15/2017 18:54:11 Reading Location: [facility] Radiology Reading Room EEG AWAKE AND [id number] 12:08:00Reason for exam:->? nonconvulsive statusDATE OF TEST: 05/15/2017DATE OF REPORT 05/15/2017 ACC: [id number] EE Start time: 1034 Stop time: 1054 ICD-10: R56.9CPT Code: 90643KOEYOBD: 26 y/o woman with epilepsy found down [...] recordings.Marika Smith M.D.Neurophysiology FellowSwathi Harper M.D.Neurophysiology Attending [id number] 04:27:00 Test Item Value Reference Range Interpretation Comments PROCALCITONIN (BEAKER) (test code 0.17 ng/mL <0.05 H = 3036) SEPSIS RISK (ng/mL)Low: 0.05-0.50Intermediate: 0.51-2.00High: >=[id number] 03:15:00 Test Item Value Reference Range Interpretation Comments PHOSPHORUS (BEAKER) (test code = 3.1 mg/dL 2.3-4.7 604) [id number] 03:15:00 Test Item Value Reference Range Interpretation Comments MAGNESIUM (BEAKER) (test code = 1.9 mg/dL 1.6-2.6 627) BASIC METABOLIC [id number] 03:15:00 Test Item Value Reference Range Interpretation [...] code = 380) LACTIC ACID, VENOUS, WHOLE [id number] 03:09:00 Test Item Value Reference Range Interpretation Comments LACTATE BLOOD VENOUS (2) (BEAKER) 0.6 mmol/L 0.5-2.2 (test code = 2872) Effective 10/17/2015: Units/Reference Range ChangeNew: 0.5-2.2 mmol/L Previous: 5-20 mg/dLPROTHROMBIN [id number] 03:07:00 Test Item Value Reference Range Interpretation [...] = 2801) RAD, CHEST, 1 VIEW, NON [id number] 01:06:00Reason for exam:->possible infectionShould this be performed [...] MDReport Verified Date/Time: 05/15/2017 01:06:06 Reading Location: [address] Reading Room
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
[2020-06-17 10:11] LABS: BUN Blood Urea Nitrogen 7 mg/dL (7-18); Bicarbonate 26 mmol/L (21-32); Glucose Level 95 mg/dL (74-106); Sodium Level 139 mmol/L (136-145)
[2020-06-17 10:21] LABS: Absolute Lymphocytes (CBC) 1.7 K/uL (0.7-4.9); Basophils % 0.8 % (0-1.3); Hematocrit 33.9 % (36.0-45.0); Lymphocytes % 24.7 % (15.3-44.8); RBC Red Blood Cell Count 4.02 M/uL (3.86-4.86)
[2020-06-17] MEDS ORDERED: NA CHLORIDE 0.9% 1,000 ML ONE (10:45)
--- NOTE | 2020-06-17 11:14 | RAD REPORT ---
EXAM DESCRIPTION: CT - Head Brain Wo Cont - 06/17/2020 10:58 am CLINICAL HISTORY: DIZZINESS Headache, drowsiness COMPARISON: Head Brain Wo Cont dated 06/11/2020; Head Brain Wo Cont dated 04/02/2020 TECHNIQUE: All CT scans are performed using dose optimization technique as appropriate and may inclu de automated exposure control or mA/KV adjustment according to patient size. FINDINGS: No intracranial hemorrhage, hydrocephalus or extra-axial fluid collection.No areas of brai n edema or evidence of midline shift. The paranasal sinuses and mastoids are clear. The calvarium is intact. IMPRESSION: No acute intracranial abnormality.
--- NOTE | 2020-06-17 11:30 | EDPHYS ---
Physician Documentation [facility] Name: Heather Hope Age: 29 yrs Sex: Female : 1990 Arrival Date: 06/17/2020 Time: 09:17 Bed 2 Private MD: ED Physician Steve Lawrence HPI: 06/17 11:27 This 29 yrs old Female presents to ER via EMS with complaints of Blurred kb Vision. 11:27 The patient presents with dizziness, generalized weakness. Onset: The symptoms/episode kb began/occurred this morning. Context: occurred at home, occurred while the patient was getting up from bed, just prior to the episode the patient experienced no apparent symptoms. Modifying factors: The symptoms are alleviated by nothing, the symptoms are aggravated by nothing. Associated signs and symptoms: The patient has no apparent associated signs or symptoms. Severity of symptoms: At their worst the symptoms were moderate in the emergency department the symptoms are unchanged. Patient's baseline: Neuro: alert and fully oriented, Motor: no deficits, Ambulation: walks without assistance, Speech: normal, The patient has a previous history of seizure disorder. The patient has not experienced similar symptoms in the past. The patient has not recently seen a physician. Pt reports she has had weakness, dizziness, and "it's like my vision is blurry" since this morning. . Historical: - Allergies: 09:19 No Known Drug Allergies; sv - PMHx: 09:19 Anemia; Depression; Seizures; sv - PSHx: 09:19 None; sv - Immunization history:: Adult Immunizations up to date. - Social history:: Smoking status: . ROS: 11:26 Constitutional: Negative for fever, chills, and weight loss, Cardiovascular: Negative kb for chest pain, palpitations, and edema, Respiratory: Negative for shortness of breath, cough, wheezing, and pleuritic chest pain, Abdomen/GI: Negative for abdominal pain, nausea, vomiting, diarrhea, and constipation, MS/Extremity: Negative for injury and deformity, Skin: Negative for injury, rash, and discoloration. 11:26 Neuro: Positive for dizziness, visual changes, weakness. Exam: 11:26 Radiologist reports: no acute findings kb 11:26 Constitutional: This is a well developed, well nourished patient who is awake, alert, and in no acute distress. Head/Face: Normocephalic, atraumatic. Eyes: Pupils equal round and reactive to light, extra-ocular motions intact. Lids and lashes normal. Conjunctiva and sclera are non-icteric and not injected. Cornea within normal limits. Periorbital areas with no swelling, redness, or edema. Chest/axilla: Normal chest wall appearance and motion. Nontender with no deformity. No lesions are appreciated. Cardiovascular: Regular rate and rhythm with a normal S1 and S2. No gallops, murmurs, or rubs. Normal PMI, no JVD. No pulse deficits. Respiratory: Lungs have equal breath sounds bilaterally, clear to auscultation and percussion. No rales, rhonchi or wheezes noted. No increased work of breathing, no retractions or nasal flaring. Abdomen/GI: Soft, non-tender, with normal bowel sounds. No distension or tympany. No guarding or rebound. No evidence of tenderness throughout. Skin: Warm, dry with normal turgor. Normal color with no rashes, no lesions, and no evidence of cellulitis. MS/ Extremity: Pulses equal, no cyanosis. Neurovascular intact. Full, normal range of motion. Neuro: Awake and alert, GCS 15, oriented to person, place, time, and situation. Cranial nerves II-XII grossly intact. Motor strength 5/5 in all extremities. Sensory grossly intact. Cerebellar exam normal. Normal gait. Vital Signs: 09:19 BP 128 / 84; Pulse 90; Resp 16; Temp 98.5(O); Pulse Ox 98% ; Weight 76.2 kg; Height 5 sv ft. 3 in. (160.02 cm); Pain 0/10; 09:42 BP 125 / 82 LA Supine (auto/reg); Pulse 87; sv 09:44 BP 126 / 84 LA Sitting (auto/reg); Pulse 93; sv 09:46 BP 123 / 87 LA Standing (auto/reg); Pulse 87; sv 10:33 BP 118 / 74; Pulse 84; Resp 16; Pulse Ox 100% ; sv 11:16 BP 123 / 76; Pulse 86; Resp 16; Pulse Ox 100% ; sv 09:19 Body Mass Index 29.76 (76.20 kg, 160.02 cm) sv Visual Acuity: 09:56 Left Eye Visual acuity 20/30, ; Right Eye Visual acuity 20/40, ; Both Eyes Visual sv acuity 20/25; Without Lenses; MDM: 09:24 Patient medically screened. kb 09:30 Patient medically screened. [facility] 11:25 Data reviewed: vital signs, nurses notes. Data interpreted: Pulse oximetry: on room air kb is 100 %. Interpretation: normal. Counseling: I had a detailed discussion with the patient and/or guardian regarding: the historical points, exam findings, and any diagnostic results supporting the discharge/admit diagnosis, lab results, radiology results, the need for outpatient follow up, a family practitioner, to return to the emergency department if symptoms worsen or persist or if there are any questions or concerns that arise at home. 06/17 09:30 Order name: CBC with Diff; Complete Time: 10:25 kb 06/17 09:30 Order name: Basic Metabolic Panel; Complete Time: 10:16 kb 06/17 09:24 Order name: Visual Acuity; Complete Time: 09:56 kb 06/17 10:28 Order name: CT Head Brain wo Cont; Complete Time: 11:17 kb 06/17 09:30 Order name: IV Start; Complete Time: 09:56 kb 06/17 09:30 Order name: Orthostatics; Complete Time: 09:56 kb Administered Medications: 10:32 Drug: NS 0.9% 1000 ml Route: IV; Rate: 1000 ml; Site: left wrist; sv 12:00 Follow up: Response: No adverse reaction; IV Status: Completed infusion; IV Intake: sv 1000ml 11:36 Drug: Zofran (Ondansetron) 4 mg Route: IVP; Site: left wrist; sv 12:00 Follow up: Response: No adverse reaction; Nausea is decreased sv Disposition: 06/18 08:35 Co-signature as Attending Physician, Steve Lawrence MD I agree with the assessment and [facility] plan of care. Disposition: 06/17/20 11:29 Discharged to Home. Impression: Weakness. - Condition is Stable. - Discharge Instructions: Weakness, [id number]. - Prescriptions for Zofran 4 mg Oral Tablet - take 1 tablet by ORAL route every 12 hours As needed; 10 tablet. - Medication Reconciliation Form, Thank You Letter, Antibiotic Education, Prescription Opioid Use form. - Follow up: Emergency Department; When: As needed; Reason: Worsening of condition. Follow up: Private Physician; When: 2 - 3 days; Reason: Recheck today's complaints, Continuance of care, Re-evaluation by your physician. Signatures: Dispatcher [employer] Opal Wasserman, Marissa Donis RN RN sv Anderson, Corey, MD MD cha Corrections: (The following items were deleted from the chart) 06/17 12:08 11:29 06/17/2020 11:29 Discharged to Home. Impression: Weakness. Condition is Stable. sv Forms are Medication Reconciliation Form, Thank You Letter, Antibiotic Education, Prescription Opioid Use. Follow up: Emergency Department; When: As needed; Reason: Worsening of condition. Follow up: Private Physician; When: 2 - 3 days; Reason: Recheck today's complaints, Continuance of care, Re-evaluation by your physician. kb
--- NOTE | 2020-06-17 11:30 | ER ---
Nurse's Notes [facility] Name: Heather Hope Age: 29 yrs Sex: Female : 1990 Arrival Date: 06/17/2020 Time: 09:17 Bed 2 Private MD: Diagnosis: Weakness Presentation: 06/17 09:18 Chief complaint: EMS states: blurred vision since this morning. Vitals WNL. States she sv feels like she's going to have a seizure. Coronavirus screen: Client denies travel out of the [place] in the last 14 days. At this time, the client does not indicate any symptoms associated with coronavirus-19. Ebola Screen: No symptoms or risks identified at this time. Risk Assessment: Do you want to hurt yourself or someone else? Patient reports no desire to harm self or others. Onset of symptoms was June 17, 2020. 09:18 Method Of Arrival: EMS: [facility] sv 09:18 Acuity: DARLYN 3 sv 09:19 Initial Sepsis Screen: Does the patient meet any 2 criteria? No. Patient's initial sv sepsis screen is negative. Does the patient have a suspected source of infection? No. Patient's initial sepsis screen is negative. Triage Assessment: 09:18 General: Appears in no apparent distress. comfortable, well developed, Behavior is sv calm, cooperative, appropriate for age. Pain: Denies pain. Neuro: Level of Consciousness is awake, alert, obeys commands, Oriented to person, place, time, situation, Moves all extremities. Full function. Neuro: Reports blurred vision. Respiratory: Airway is patent Respiratory effort is even, unlabored, Respiratory pattern is regular, symmetrical. Derm: Skin is intact, Skin is pink, warm \T\ dry. Historical: - Allergies: 09:19 No Known Drug Allergies; sv - PMHx: 09:19 Anemia; Depression; Seizures; sv - PSHx: :19 None; sv - Immunization history:: Adult Immunizations up to date. - Social history:: Smoking status: . Screenin:19 Abuse screen: Denies threats or abuse. Denies injuries from another. Nutritional sv screening: No deficits noted. Tuberculosis screening: No symptoms or risk factors identified. Fall Risk None identified. Assessment: 10:09 Reassessment: Patient appears in no apparent distress at this time. No changes from sv previously documented assessment. Patient and/or family updated on plan of care and expected duration. Pain level reassessed. Patient is alert, oriented x 3, equal unlabored respirations, skin warm/dry/pink. 10:34 Reassessment: Patient appears in no apparent distress at this time. No changes from sv previously documented assessment. Patient and/or family updated on plan of care and expected duration. Pain level reassessed. Patient is alert, oriented x 3, equal unlabored respirations, skin warm/dry/pink. 11:34 Reassessment: Patient appears in no apparent distress at this time. Patient and/or sv family updated on plan of care and expected duration. Pain level reassessed. Patient is alert, oriented x 3, equal unlabored respirations, skin warm/dry/pink. GI: Reports nausea, Informed Opal HOUSE FELLOW, medication order received. See MAR. 12:07 Reassessment: Patient appears in no apparent distress at this time. Patient and/or sv family updated on plan of care and expected duration. Pain level reassessed. Patient is alert, oriented x 3, equal unlabored respirations, skin warm/dry/pink. Patient states feeling better. Vital Signs: 09:19 BP 128 / 84; Pulse 90; Resp 16; Temp 98.5(O); Pulse Ox 98% ; Weight 76.2 kg; Height 5 sv ft. 3 in. (160.02 cm); Pain 0/10; 09:42 BP 125 / 82 LA Supine (auto/reg); Pulse 87; sv 09:44 BP 126 / 84 LA Sitting (auto/reg); Pulse 93; sv 09:46 BP 123 / 87 LA Standing (auto/reg); Pulse 87; sv 10:33 BP 118 / 74; Pulse 84; Resp 16; Pulse Ox 100% ; sv 11:16 BP 123 / 76; Pulse 86; Resp 16; Pulse Ox 100% ; sv 09:19 Body Mass Index 29.76 (76.20 kg, 160.02 cm) sv Visual Acuity: 09:56 Left Eye Visual acuity 20/30, ; Right Eye Visual acuity 20/40, ; Both Eyes Visual sv acuity 20/25; Without Lenses; ED Course: 09:17 Patient arrived in ED. sv 09:17 Marissa Lee, CLAUDIA is Primary Nurse. sv 09:18 Triage completed. sv 09:19 Arm band placed on. sv 09:19 Patient has correct armband on for positive identification. Bed in low position. Call sv light in reach. Side rails up X2. Seizure precautions initiated. Pulse ox on. NIBP on. 09:24 Opal Gresham FNP-C is PHCP. kb 09:24 Steve Lawrence MD is Attending Physician. kb 09:40 Inserted saline lock: 22 gauge in left wrist, using aseptic technique. ,using aseptic sv technique. diffusics Blood collected. Flushed left with 5 ml normal saline. 10:09 Awaiting lab results. sv 10:58 CT Head Brain wo Cont In Process Unspecified. EDMS 11:38 No provider procedures requiring assistance completed. sv 12:07 IV discontinued, intact, bleeding controlled, No redness/swelling at site. Pressure sv dressing applied. Administered Medications: 10:32 Drug: NS 0.9% 1000 ml Route: IV; Rate: 1000 ml; Site: left wrist; sv 12:00 Follow up: Response: No adverse reaction; IV Status: Completed infusion; IV Intake: sv 1000ml 11:36 Drug: Zofran (Ondansetron) 4 mg Route: IVP; Site: left wrist; sv 12:00 Follow up: Response: No adverse reaction; Nausea is decreased sv Intake: 12:00 IV: 1000ml; Total: 1000ml. sv Outcome: 11:29 Discharge ordered by . kb 11:39 Discharged to home via wheelchair, with friend, Pt waiting for her friend Ted to come pick her up. 11:39 Condition: stable 11:39 Discharge instructions given to patient, Instructed on discharge instructions, follow up and referral plans. medication usage, Demonstrated understanding of instructions, follow-up care, medications, Prescriptions given X 1. 12:08 Patient left the ED. sv Signatures: Dispatcher [employer] EDMS Opal Gresham FNP-C FNP-Ckb Verde, Stephanie RN RN sv Corrections: (The following items were deleted from the chart) 09:20 09:19 BP 128 / 84; Pulse 90bpm; Resp 16bpm; Pulse Ox 98%; sv sv 11:38 11:34 Reassessment: Patient appears in no apparent distress at this time. Patient sv and/or family updated on plan of care and expected duration. Pain level reassessed. Patient is alert, oriented x 3, equal unlabored respirations, skin warm/dry/pink. sv 11:38 11:34 GI: Reports nausea, sv sv
[2020-06-17] MEDS ORDERED: ONDANSETRON 4 MG/2 ML VIAL ONE (11:49)
[2020-06-17 12:59] VITALS: TEMP 98.5
[2020-06-17 13:06] VITALS: O2SAT 100
[2020-06-17 13:08] VITALS: BP 123/76
== END 2020-06-17 12:08 | disposition home or self-care (01) ==
LOC: ER 09:13
DX: R53.1 Weakness (principal)
CPT/HCPCS: 96361; 85025; 80048; 36415; 70450; 96374; 99284; J7030; J2405

== ENCOUNTER 2020-06-19 14:05 | Emergency (ER) | payer OTHER ==
--- OUTSIDE RECORDS SUMMARY | 2020-06-19 14:08 | XMS REPORT | Clinical Summary ---
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 City/[facility] Phon e Number [facility] DEPARTMENT OF PATHOLOGY AND [address] [place] [address] [phone] [address] Sedimentation rate (04/04/2020 9:00 PM CDT)Only the most recent of2 results within the time period is included. Pathologist Sig nature Sedimentation rate 6 0 - 20 mm/hr [facility] Specimen Plasma Performing Organization Address City/[facility] Phon e Number [facility] DEPARTMENT OF PATHOLOGY AND [address] [place] [address] [phone] [address] CBC hemogram (04/04/2020 9:00 PM CDT) Pathologist Sig nature WBC 7.66 4.50 - 11.00 k/uL [facility] RBC 4.23 4.20 - 5.50 m/uL [facility] HGB 12.2 12.0 - 16.0 g/dL [facility] HCT 36.8 (L) 37.0 - 47.0 % [facility] MCV 87.0 82.0 - 100.0 fL [facility] MCH 28.8 27.0 - 34.0 pg [facility] MCHC 33.2 31.0 - 37.0 g/dL [facility] RDW - SD 40.3 37.0 - 55.0 fL [facility] MPV 10.1 8.8 - 13.2 fL [facility] Platelet count 247 150 - 400 k/uL [facility] Nucleated RBC 0.00 /100 WBC [facility] Specimen Plasma Performing Organization Address City/[facility] Phon e Number [facility] DEPARTMENT OF PATHOLOGY AND [address] [place], [place] [address] GENOMIC MEDICINE [facility] [address] [place] [address] Keppra (Levetiracetam) level (04/04/2020 8:15 PM CDT)Only [...] vomiting. This levetiracetam (Keppra) immunoassay uses the Itug[employer] reagents, which has known cross-reactivity with the dr norma collinsracetam (Briviact) and may report inaccurate resu lts. Patients transitioning from levetiracetam to brivarace goldstein or those who are using both medications should not monitor drug concentrations with the [employer] assay. These p atients should be monitored using a validated chromatographic methodology that distinguishes between drugs to determine drug con centrations. Performed By: [facility] [address] [place] [address] Advisor Consultant: Gege Pierson MD Specimen Serum Performing Organization Address City/State/ZIP Code Phon e Number [facility] [address] [place] [address] [facility] [address] [place] [address] Urine drugs of abuse screen (04/04/2020 7:19 PM CDT)Only the most recent of2 resultswithin the time period is included. Amphetamine screen, Negative [place] urine [facility] Barbiturate screen, Negative [place] urine [facility] Benzodiazepine Positive (A) [place] screen, [facility] Cocaine screen, urine Negative [facility] Methadone metabolite Negative [place] (EDDP), urine [facility] Opiates screen, urine Negative [facility] Oxycodone screen, Negative [place] urine [facility] Phencyclidine screen, Negative [place] urine [facility] Tricyclic screen, Negative [place] urine [facility] Cannabinoid screen, Negative [place] urine Comment: [place] Drug screen minimum concentration of detectability HOSPITAL [...] requir ed. Specimen Urine Performing Organization Address [facility] Phon e Number [facility] DEPARTMENT OF PATHOLOGY AND [address] [place] [address] [phone] [address] Prolactin level (04/04/2020 7:07 PM CDT)Only the most recent of2 resultswithin the time period is included. Pathologist Sig nature Prolactin 13 5 - 23 ng/mL [facility] Specimen Plasma Performing Organization Address [facility] Phon e Number [facility] DEPARTMENT OF PATHOLOGY AND [address] [place] [address] [phone] [address] ECG 12 lead (04/04/2020 7:02 PM CDT)Only [...] is no t available. 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 Critical care was time [...] - 2.2 mmol/L [facility] AL Specimen Plasma Performing Organization Address [facility] Phon e Number [facility] DEPARTMENT OF PATHOLOGY AND [address] [place] [address] [phone] [address] Phosphorus level (04/04/2020 6:33 PM CDT) Pathologist Sig nature Phosphorus 3.7 2.4 - 4.5 mg/dL [facility] L Specimen Plasma Performing Organization Address [facility] Phon e Number [facility] DEPARTMENT OF PATHOLOGY AND [address] [place] [address] [phone] [address] PET Brain Metabolic Eval (03/30/2020 1:51 PM [...] cerebellar hypometabolism sugg ests a pharmacologic effect. [id number] Procedure Note Interface, Radiology Results Incoming - [...] cerebellar hypometabolism sugg ests a pharmacologic effect. [id number] Performing Organization Address City/State/ZIP Code Phon e Number [facility] [address] [place] [address] MRI Brain W Wo Contrast (03/27/2020 1:50 PM CDT)Only the most recent of2 resultswithin the time period is included. Specimen Narrative Performed At This result has an attachment that is no t available. EXAMINATION: [facility]: R56.9 Unspecified convulsions, Sei zures COMPARISON: Brain MRI on 11/13/[address] on 03/12/20 20. TECHNIQUE: High-resolution brain MRI wit hout and with intravenous gadolinium contrast acquired using 7T MRI with 1Tx/32Rx head coil. Acquired sequences include MPRAGE, [id number], T2 JAEL, T2 FLAIR, SWI, and DTI [...] abnormality identified to explain patien t's seizures. [id number] Procedure Note Hm Interface, Radiology Results Incoming - 03/28/2020 2:52 PM CDT EXAMINATION: MRI BRAIN W WO CONTRAST CLINICAL HISTORY: R56.9 Unspecified con vulsions, Seizures COMPARISON: Brain MRI on 11/13/[address] on 03/12/2020. TECHNIQUE: High-resolution brain MRI wit hout and with intravenous gadolinium contrast acquired using 7T MRI with 1Tx/32Rx head coil. Acquired sequences include MPRAGE, NP1BUID, T2 JAEL, T2 FLAIR, SWI, and DTI [...] structural abnormality identified to explain patient's seizures. [id number] Performing Organization Address City/State/ZIP Code Phon e Number [facility] [address] [place] [address] Epilepsy/Seizure monitoring (03/15/2020 12:14 PM CDT) Narrative Performed At This result has an attachment that is no t available. EPILEPSY MONITORING UNIT REPORT Patient Name: eHather Hope Date of : 1990 Gender: female [...] recorded simultaneously with video throughout the [facility]. The EEG was visually inspected and [...] period is included. Manual differential PERFORMED [facility] Neutrophils 51.0 39.0 - 69.0 % [facility] Lymphocytes 34.0 25.0 - 45.0 % [facility] Monocytes 13.0 (H) 0.0 - 10.0 % [facility] Eosinophils 2.0 0.0 - 5.0 % [facility] Basophils 0.0 0.0 - 1.0 % [facility] Metamyelocytes 0 % [facility] Promyelocytes 0 % [facility] Platelet slide review Sana adequate [facility] Anisocytosis Moderate [facility] Ovalocytes Moderate [facility] Enlarged platelets Moderate (A) [facility] Specimen Performing Organization Address City/State/ZIP Code Phon e Number [facility] DEPARTMENT OF PATHOLOGY AND [address] [place], [place] [address] GENOMIC MEDICINE [facility] [address] [place] [address] Continuous EEG monitoring (11/15/2019 1:22 AM CDT) [...] 20 (L) 37 - 145 ug/dL [facility] Iron binding capacity 335 200 - 400 ug/dL [facility] % Saturation 6.0 (L) 15.0 - 38.0 % [facility] Specimen Blood Performing Organization Address [facility] Phon e Number [facility] DEPARTMENT OF PATHOLOGY AND [address] [place] [address] Ferritin level (11/13/2019 4:00 AM CDT) Pathologist Sig nature Ferritin level <13 (A) 13 - 150 ng/mL [facility] Specimen Blood Performing Organization Address [facility] Phon e Number [facility] DEPARTMENT OF PATHOLOGY AND [address] [place] [address] [phone] [address] MARCELINO titer (11/12/2019 7:40 PM CDT) Pathologist Sig nature MARCELINO titer 1:160 (A) Not-Detected [facility] MARCELINO pattern Homogeneous (A) Not-Detected [facility] Specimen Blood Performing Organization Address [facility] Phon e Number [facility] DEPARTMENT OF PATHOLOGY AND [address] [place] [address] [place] [address] MARCELINO (11/12/2019 7:40 PM CDT) MARCELINO screen Positive (A) Negative [facility] Comment: HOSPITAL Test performed using NOVA Lite DAPI MARCELINO kit (Indirect Immunofluorescence Assay) for Anti-Nuclear Antibody on AGELON ?A-Lyser 160 Analyzer. Specimen Blood Performing Organization Address [facility] Phon e Number [facility] DEPARTMENT OF PATHOLOGY AND [address] [place] [address] [phone] [address] Creatine kinase, total (CPK) (11/12/2019 7:40 PM CDT) Pathologist Sig nature Creatine kinase 56 26 - 192 U/L [facility] HOSPITA L Specimen Performing Organization Address City/[facility] Phon e Number [facility] DEPARTMENT OF PATHOLOGY AND [address] [place] [address] Cortisol level, random (11/12/2019 7:40 PM CDT) Cortisol, random 2 ug/dL [facility] Comment: HOSPITAL Reference Ranges are not established for non-timed Cor tisol levels. Reference Range for Timed Cortisol: 6 - 10 AM 6 - 18 ug/d l 4 - 8 PM 3 - 11 ug/ dl Specimen Blood Performing Organization Address [facility] Phon e Number [facility] DEPARTMENT OF PATHOLOGY AND [address] [place] [address] Cervical Spine Wo Contrast (11/12/2019 6:12 [...] subluxation identif ied in the cervical spine. [id number] Procedure Note Interface, Radiology Results Incoming - [...] subluxation identif ied in the cervical spine. [id number] Performing Organization Address City/[facility] Phon e Number [facility] [address] [place] [address] CT Maxillofacial Wo Contrast (11/12/2019 6:09 PM [...] unre markable. The paranasal sinuses are clear. [id number] Procedure Note Hm Interface, Radiology Results Incoming [...] unre markable. The paranasal sinuses are clear. [id number] Performing Organization Address City/[facility] Code Phon e Number [facility] [address] [place] [address] XR Chest 1 Vw Portable (11/12/2019 5:35 [...] There is no acute cardiopulmonary dis ease. [id number] Procedure Note Interface, Radiology Results Incoming - [...] There is no acute cardiopulmonary dis ease. [id number] Performing Organization Address City/[facility] Phon e Number [facility] [address] [place] [address] Alcohol level, blood (11/12/2019 5:04 PM CDT) Alcohol None Detected mg/dL [facility] Comment: HOSPITAL Normal None Detected Legal Intoxication in [place] 80 mg/dL (0.08%) - Whole Blood Toxic Concentration 200 mg/dL (0.2%) Potentially Fatal 350 - 500 mg/dL (0. 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
--- OUTSIDE RECORDS SUMMARY | 2020-06-19 14:08 | XMS REPORT | Clinical Summary ---
:1990 Author Organization [facility] Address [address] [place] [address] Care Team Providers Name Role Phone Unavailable Primary Care Provider Unavailable Allergies No Known Allergies Medications Medication Sig Dispensed Refills Start Date End Date Status levETIRAcetam (KEPPRA) Take 1 tablet 60 tablet 2 05/19/2017 Active 1000 MG tablet (1,000 mg total) by mouth 2 (two) times daily. vitamin Take 1 tablet by 90 tablet 3 05/20/2017 Active w/kofrqsg-slbk-axbtlb mouth daily. ( PLUS) 27 mg iron- [...] Not on file Results Not on fileafter 06/19/2019 [id number] 1 Advance Directives For more information, please contact: [phone] Code Status Date Activated Date Inactivated Comments Full Code 05/14/2017 10:10 PM 05/19/2017 2:55 PM This code status was determined by: Patient
--- OUTSIDE RECORDS SUMMARY | 2020-06-19 14:12 | XMS REPORT | Continuity of Care Document ---
:1990 Author Organization [facility] t Address [address] [place] [address] Care Team Providers Name Role Phone Asked, Pcp Primary Care Physician Unavailable Cecil Van MD Attending Clinician Mayito Daily MD Attending Clinician Kenroy Wick MD Attending Clinician [...] Expiration Date Sour ce Number CIGNACIGNA OPEN [id number] 2019 [place] ACCESS/NETWORKxx 00:00:00 Methodis t [id number]/ 0-PresentHMO MEDICAIDMEDICAID [id number] 2019 [place] [id number] 00:00:00 Methodis t 0-PresentMedicai d Problems Condition Condition Condition Status Onset Resolution Last Treating Co mments Source Name Details Category Date Date Treatment Clinician Date Epilepsy Epilepsy Disease Active 2019-06 [place] 0-21 [facility]: st 00 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 00:00: st with with 00 generaliza generaliza tion and tion and with with intractabl intractabl e epilepsy e epilepsy Seizure Seizure Disease Active [place] 5-30 [facility] st 00 Hypokalemi Hypokalemi Disease Active 2016-[address] [facility] Acute Acute Disease Active 2016-[address] [facility] [address] encephalop encephalop 07-14 [facility] kes - athy athy 00:00: Medical 00 Interior Seizure Seizure Disease Active 2016-[address] [facility] disorder disorder 07-14 [facility] Interior Leukocytos Leukocytos Disease Active 2016-06 C [facility] [...] Allergie 1-24 [facility] s 00:00: Jess 00 [facility] Social History Social Habit Start Date Stop Date Quantity Comments Source Sex Assigned At [facility] ethodist Exposure to Not sure [place] Metho dist SARS-CoV-2 (event) Tobacco use and 2020-05-02 2020-05-02 Never used [facility] ethodist exposure 00:00:00 00:00:00 Alcohol intake 2020-05-02 2020-05-02 Ex-drinker [facility] thodist 00:00:00 00:00:00 (finding) Smoking Status Start Date Stop Date Source Never smoker [place] Methodis t Medications Ordered Filled Start Stop Current Ordering Indication Dosage Frequency Signature Comments Components Source Medication Medication Date Date Medication? Clinician (SIG) Name Name cloBAZam 2019-06- Yes 30mg QD Take 3 [place] (ONFI) 10 1-12 05-11 tablets Method i mg tablet 00:00: 23:59 ([address] 00 :00 total) by mouth daily for 180 days. ergocalcife 2019-06- No [id number] Q7D Take 1 [place] 0-31 [...] Take 1 Nunez complex-vit 11-14- tablet by Nm marques carter 00:00: 23:[address] C-folic [...] Commen ts Source Name Name Tdap 2020-05-02 [facility] 00:00:00 Ca[facility] Vital Signs Vital Name Observation Time Observation Value Comments Source Systolic blood 2020-06-19 03:50:00 124 mm[Hg] Luz [place] pressure Diastolic blood 2020-06-19 03:50:00 80 mm[Hg] Julee ewing [facility] pressure Heart rate 2020-06-19 03:50:00 70 /min Enrique [place] Body temperature 2020-06-19 03:50:00 36.61 Melody Sonja ton Caoda[facility] Respiratory rate 2020-06-19 03:50:00 16 /min Sonja [place] Oxygen saturation in 2020-06-19 03:50:00 98 /min Enrique [place] Arterial blood by Pulse oximetry Body height 2020-06-18 19:53:00 160 cm Enrique [place] Body weight 2020-06-18 19:53:00 76.658 kg Enrique [place] BMI 2020-06-18 19:53:00 29.94 kg/m2 Enrique [place] Procedures Procedure Date / Time Performing Clinician Source Performed CT ABDOMEN PELVIS W 2020-06-19 01:41:06 Yovany Van CONTRAST COVID-19 QUALITATIVE PCR 2020-06-19 00:31:00 Yovany Van [facility] CBC WITH PLATELET AND 2020-06-19 00:31:00 Yovany Van [facility] DIFFERENTIAL COMPREHENSIVE METABOLIC 2020-06-19 00:31:00 Yovany Van [facility] PANEL LIPASE LEVEL 2020-06-19 00:31:00 Yovany Van Me thodist ESTIMATED GFR 2020-06-19 00:31:00 Yovany Van Me thodist URINE CULTURE 2020-06-18 23:56:00 Yovany Van Me thodist URINALYSIS SCREEN AND 2020-06-18 23:56:00 Yovany Van [facility]ism MICROSCOPY, WITH REFLEX TO CULTURE HCG QUALITATIVE, URINE 2020-06-18 23:56:00 Yovany Van [facility] SCREEN COVID-19 QUALITATIVE PCR 2020-05-02 16:10:00 Daniel Turner URINE CULTURE 2020-05-02 15:51:[address] HEAD WO CONTRAST 2020-05-02 15:47:02 Daniel Turner on Caodaism HC COMPLETE BLD COUNT 2020-05-02 15:30:00 Daniel Turner [facility] W/AUTO DIFF HCG QUALITATIVE, SERUM 2020-05-02 15:30:00 Daniel Turner [facility] SCREEN BASIC METABOLIC PANEL 2020-05-02 15:30:00 Daniel Turner [facility] ESTIMATED GFR 2020-05-02 15:30:00 Daniel Turner ethodist SMEAR REVIEW 2020-05-02 15:30:00 Daniel Turner ethodist URINALYSIS SCREEN AND 2020-05-02 15:28:00 Daniel Turner [facility] MICROSCOPY, WITH REFLEX TO CULTURE POC GLUCOSE 2020-04-06 17:27:00 Freddy Ocasio Meth odist DOUBLE-STRANDED DNA 2020-04-06 16:50:00 Ninfa Johnson [facility] (DSDNA) ANTIBODIES, Ninfa CRITHIDIA CENTROMERE ANTIBODY 2020-04-06 16:50:00 Ninfa Johnson [facility] Ahmed SS-B ANTIBODY 2020-04-06 16:50:00 Ninfa Johnson Me thodist Ahmed POTASSIUM LEVEL 2020-04-05 17:40:00 Reza Avelar Meth odist HOMOCYSTINE, PLASMA 2020-04-05 17:40:00 Reza Avelar [facility] EEG AWAKE/DROWSY LESS 2020-04-05 11:03:26 Reza Avelar Caodaism THAN 41 MIN HC COMPLETE BLD COUNT 2020-04-05 04:00:00 Caesar Maxwell Caodaism W/AUTO DIFF VITAMIN B12 LEVEL 2020-04-05 04:00:00 Reza Avelar Me thodist C-REACTIVE PROTEIN 2020-04-05 04:00:00 Reza Avelar M ethodist HOMOCYSTINE, PLASMA 2020-04-05 04:00:00 Reza Avelarist RHEUMATOID FACTOR 2020-04-05 04:00:00 Reza Avelar Me thodist THYROID STIMULATING 2020-04-05 04:00:00 Reza Avelar HORMONE T4, FREE 2020-04-05 04:00:00 Reza Avelar Meth odist T3 2020-04-05 04:00:00 Reza Avelar Meth odist SYPHILIS TOTAL ANTIBODY 2020-04-05 04:00:00 Reza Avelar [facility] HIV AG/AB COMBINATION 2020-04-05 04:00:00 Reza Avelar [facility] VITAMIN D 25 HYDROXY 2020-04-05 04:00:00 Reza Avelar [facility] LEVEL BASIC METABOLIC PANEL 2020-04-05 04:00:00 Caesar Maxwell on Caodaism FOLATE LEVEL 2020-04-05 04:00:00 Caesar Maxwell Met hodadriano MAGNESIUM LEVEL 2020-04-05 04:00:00 Caesar Maxwell Met hodist ESTIMATED GFR 2020-04-05 04:00:00 Caesar Maxwell Met hodadriano COVID-19 QUALITATIVE PCR 2020-04-04 22:52:[address] HEAD WO CONTRAST 2020-04-04 21:17:59 Max Ron Luz n Caodaism CBC HEMOGRAM 2020-04-04 21:00:00 Max Ron Me thodist SEDIMENTATION RATE 2020-04-04 21:00:00 Max Ron Enrique [facility] URINE CULTURE 2020-04-04 20:52:00 Max Ron Me thodist KEPPRA (LEVETIRACETAM) 2020-04-04 20:15:00 Max Ron Chandrika aguila Caodaism LEVEL URINALYSIS SCREEN AND 2020-04-04 19:19:00 Tank Rontheo lemus Caodaism MICROSCOPY, WITH REFLEX TO CULTURE URINE DRUGS OF ABUSE 2020-04-04 19:19:00 Tank Rontheo [place] [facility] SCREEN PROLACTIN LEVEL 2020-04-04 19:07:00 Max Ron Nunez Me thodist ECG 12-LEAD 2020-04-04 19:02:38 Max Ron Nunez Me thodist CRITICAL CARE 2020-04-04 18:48:10 Lila Byers Meth odist COMPREHENSIVE METABOLIC 2020-04-04 18:33:00 Max Ron Eliot [place] Caodaism PANEL LACTIC ACID LEVEL, SEPSIS 2020-04-04 18:33:00 EnricotaTank del cidtheo Nunez Caodaism - NOW AND REPEAT 2X EVERY 3 HOURS MAGNESIUM LEVEL 2020-04-04 18:33:00 Max Ron Chandrika Nunez Me thodist PHOSPHORUS LEVEL 2020-04-04 18:33:00 Max Ron Chandrika Nunez M ethodist ESTIMATED GFR 2020-04-04 18:33:00 Tank Ronc Cobos Enrique Me thodist PET BRAIN METABOLIC EVAL 2020-03-30 13:51:58 Richard Huizar Caodaism POC GLUCOSE 2020-03-30 12:29:00 Richard Huizar Meth odist MRI BRAIN W WO CONTRAST 2020-03-27 13:50:00 Richard Huizar Ca[facility]ism MONITORED VIDEO-EEG 60 2020-03-15 12:14:01 HuizarIsis awadnina [place] [facility] HRS 1 MIN-74 HRS MONITORED W VIDEO DAILY 2020-03-15 00:12:21 Isis Huizarnina lemus Caodaism MONITORED W VIDEO DAILY 2020-03-14 00:24:17 Isis Huizarnina lemus Caodaism EEG SETUP 2020-03-13 00:17:20 Isis Huizarnina Nunez Meth odist HC COMPLETE BLD COUNT 2020-03-12 14:18:00 Ulises Choudhary Caodaism W/AUTO DIFF COMPREHENSIVE METABOLIC 2020-03-12 14:18:00 Ulises Choudhary Caodaism PANEL ESTIMATED GFR 2020-03-12 14:18:00 Isis Huizarnina Nunez Meth odist MAGNESIUM LEVEL 2020-03-12 14:18:00 Isis Huizarnina Nunez Meth odist CT HEAD WO CONTRAST 2020-03-12 13:25:51 Ulises Choudhary COVID-19 QUALITATIVE PCR 2020-03-12 11:53:00 Ulises Choudhary Caodaism UNMONITORED VIDEO-EEG 36 2019-11-15 09:41:23 Bina Bonds Caodaism HRS 1 MIN-50 HRS CBC WITH PLATELET AND 2019-11-15 04:30:00 Adrian Diana Caodaism DIFFERENTIAL Ebrahim MANUAL DIFFERENTIAL 2019-11-15 04:30:00 Adrian Diana Ebrahim BASIC METABOLIC PANEL 2019-11-15 04:00:00 Adrian Diana Caodaism Ebrahim ESTIMATED GFR 2019-11-15 04:00:00 Adrian Diana Meth odist Ebrahim UNMONITORED VIDEO DAILY 2019-11-15 01:22:22 Bina Bonds Caodaism EEG SETUP 2019-11-14 00:26:44 Bina Bonds EEG (ROUTINE) 2019-11-13 07:46:23 Bina Bonds Caodaism CBC WITH PLATELET AND 2019-11-13 04:00:00 Caesar Maxwell on Caodaism DIFFERENTIAL BASIC METABOLIC PANEL 2019-11-13 04:00:00 Caesar Maxwell on Caodaism TOTAL IRON BINDING 2019-11-13 04:00:00 Caesar Maxwell Caodaism CAPACITY FERRITIN LEVEL 2019-11-13 04:00:00 Caesar Maxwell Met hodist ESTIMATED GFR 2019-11-13 04:00:00 Caesar Maxwell Met hodist MANUAL DIFFERENTIAL 2019-11-13 04:00:00 Caesar Maxwell MRI BRAIN W WO CONTRAST 2019-11-13 02:16:00 Bina Bonds CONSULT TO OSTOMY CARE 2019-11-12 23:40:27 Caesar Maxwell Caodaism NURSE ECG 12-LEAD 2019-11-12 21:10:47 Bnia Bonds MARCELINO 2019-11-12 19:40:00 Bina Bonds FOLATE LEVEL 2019-11-12 19:40:00 Bina Bonds VITAMIN B12 LEVEL 2019-11-12 19:40:00 Bina Bonds Ca[facility]ism C-REACTIVE PROTEIN 2019-11-12 19:40:00 Bina Bonds on Caodaism HOMOCYSTINE, PLASMA 2019-11-12 19:40:00 Bina Bonds Caodaism CORTISOL LEVEL, RANDOM 2019-11-12 19:40:00 Bina Bonds Caodaism SEDIMENTATION RATE 2019-11-12 19:40:00 Bina Bonds on Caodaism RHEUMATOID FACTOR 2019-11-12 19:40:00 Bina Bonds Caodaism THYROID STIMULATING 2019-11-12 19:40:00 Bina Bonds Caodaism HORMONE T4, FREE 2019-11-12 19:40:00 Bina Bonds SYPHILIS TOTAL ANTIBODY 2019-11-12 19:40:00 Bina Bonds HIV AG/AB COMBINATION 2019-11-12 19:40:00 Bina Bonds Caodaism VITAMIN D 25 HYDROXY 2019-11-12 19:40:00 Bina Bonds Caodaism LEVEL CREATINE KINASE, TOTAL 2019-11-12 19:40:00 Manas Baileymayda [place] [facility] (CPK) Adolfo PROLACTIN LEVEL 2019-11-12 19:40:00 Shari Bailey Meth odist Adolfo MARCELINO TITER 2019-11-12 19:40:00 Shari Bailey Meth odist Adolfo CT CERVICAL SPINE WO 2019-11-12 18:12:54 Shari Bailey Ca[facility]ism CONTRAST Adolfo CT MAXILLOFACIAL WO 2019-11-12 18:09:40 Shari Bailey [facility] CONTRAST Adolfo CT HEAD WO CONTRAST 2019-11-12 18:09:19 Shari Bailey Nunez Caodaism Adolfo XR CHEST 1 VW PORTABLE 2019-11-12 17:35:36 Bailey Shari [place] Ca[facility]ism Adolfo HC COMPLETE BLD COUNT 2019-11-12 17:04:00 Shari Bailey Caodaism W/AUTO DIFF [facility] COMPREHENSIVE METABOLIC 2019-11-12 17:04:00 Shari Bailey Caodaism PANEL [facility] ALCOHOL LEVEL, BLOOD 2019-11-12 17:04:00 Leo Sharimayda Nunez Caodaism Adolfo KEPPRA (LEVETIRACETAM) 2019-11-12 17:04:00 Shari Bailey on Caodaism LEVEL [facility] ESTIMATED GFR 2019-11-12 17:04:00 BaileyShari chase Nunez Meth odist Adolfo URINE CULTURE 2019-11-12 14:44:00 Keanu Flores Meth odist URINALYSIS SCREEN AND 2019-11-12 14:44:00 Keanu Flores Ca[facility]ism MICROSCOPY, WITH REFLEX TO CULTURE HCG QUALITATIVE, URINE 2019-11-12 14:44:00 Keanu Flores on Caodaism SCREEN URINE DRUGS OF ABUSE 2019-11-12 14:44:00 Keanu Floresist SCREEN Plan of Care Planned Activity Planned Date Details Comments Source Future Scheduled Test 2020-01-14 INFLUENZA VACCINE H en [place] 00:00:00 [code = INFLUENZA VACCINE] Future Scheduled Test 2010 Screening for [place] [facility] 00:00:00 malignant neoplasm of cervix (procedure) [code = 507530466] Future Scheduled Test 2005 COVID-19 VACCINE Ho capri Caodaism 00:00:00 (#1) [code = COVID-19 VACCINE (#1)] Future Appointment 2020-07-02 Marilee Foster MD, [address] [place] 07:30:00 [facility]; [address], [place] [address] Future Appointment 2020-07-02 Marilee Foster MD, [address] [place] 07:30:00 [facility]; [address], [place] [address] Encounters Start End Encounter Admission Attending Care Care Encounter Source Date/Time Date/Time Type Type Clinicians Facility Department ID 2020-06-18 2020-06-19 Emergency TOYA, [facility] 064 [id number] [place] 00:00:00 00:00:00 BEAU [address] 2020-06-13 2020-06-13 [facility] Darvin Daily [id number] 12:13:01 23:59:00 Encounter William Wick [id number] [facility] [id number] 2020-06-13 2020-06-13 Ancillary Joann Cabrera [id number] 15:41:48 15:48:57 Visit SandraDiana Aden [id number] Therapy Tub [facility] [id number] 2020-05-15 2020-05-15 Outpatient MARILEE FOSTER [facility] [id number] [place] 00:00:00 00:00:[address] 2020-05-02 2020-05-02 Emergency ANTHONY, [facility] [id number] [place] 00:00:00 00:00:00 DANIEL [address] 2020-04-26 2020-04-26 Outpatient ISIS HUIZART [facility] [id number] [place] 00:00:00 00:00:[address] 2020-04-04 2020-04-07 Inpatient AHMED, [facility] 064 [id number] [place] 00:00:00 00:00:00 YAHYA [address] 2020-03-30 2020-03-30 Outpatient RICHARD HUIZAR [facility] [id number] [place] 00:00:00 00:00:[address] 2020-03-27 2020-03-27 Outpatient RICHARD HUIZAR [facility] [id number] [place] 00:00:00 00:00:[address] 2020-03-12 2020-03-15 Inpatient RICHARD HUIZAR [facility] 016 [id number] [place] 00:00:00 00:00:[address] 2020-02-16 2020-02-16 Outpatient RICHARD HUIZAR [facility] [id number] [place] 00:00:00 00:00:[address] 2019-11-12 2019-11-15 Inpatient LIANA [facility] 064 [id number] [place] 00:00:00 00:00:00 ADRIAN [address] Results Test Description Test Time Test Comments Results Result Comments Source COVID-19 qualitative PCR 2020-06-19 06:49:49 Test Item Value Reference Range Interpretation Comme nts Interpretation (test code = Negative results do not 7535985) preclude 2019-nCoV infection and should not be used as the sole basis for treatment or other patient management decisions. Negative results must be combined with clinical observations, patient history, and epidemiological information. COVID-19 qualitative PCR Not-Detected Not-Detected result (test code = 27049-8) COVID-19 qualitative PCR See link below for PDF Lab Case Number: (test code = 7070) Report [id number] [place] MethodistUrinalysis screen and microscopy, with reflex to culture 2020-06-19 06:42:31 Test Item Value Reference Range Interpretation Comments Specimen site (test code = Clean catch 1121352) Color, UA (test code = 5778-6) Yellow Appearance, UA (test code = Clear 5767-9) Specific gravity, UA (test code = 1.029 1.001-1.035 5811-5) pH, UA (test code = 5803-2) 6.0 5.0-8.5 Protein, UA (test code = 38538-0) 1+ Negative A Glucose, UA (test code = 48504-0) Negative Negative Ketones, UA (test code = 2514-8) 2+ Negative A Bilirubin, UA (test code = Negative Negative 5770-3) Blood, UA (test code = 5794-3) Negative Negative Nitrite, UA (test code = 5802-4) Negative Negative Urobilinogen, UA (test code = 2.0 <2.0 A 44640-4) Leukocyte esterase, UA (test code Negative Negative = 5799-2) Epithelial cells, UA (test code = 6 /HPF 5787-7) WBC, UA (test code = 5821-4) 4 0- 4 /HPF RBC, UA (test code = 54797-3) <1 0- 5 /HPF Bacteria, UA (test code = Few None seen 68721-0) Yeast, UA (test code = 90417-8) None seen Yeast with pseudohyphae, UA (test None seen code = 52419-8) Lab Interpretation (test code = Abnormal 57369-3) [place] MethodrustCT Abdomen Pelvis W [id number] 01:50:17Hm Interface, Radiology Results 06/19/2020 1:53 AM CSTEXAMINATION: CT ABDOMEN PELVIS W CONTRASTCLINICAL HISTORY: abd pain gen acuteTECHNIQUE: Multiple axial images of the abdomen and pelvis were obtained following intravenous administration of iodinated contrast. Sagittal and coronal computerized reformatted images were also obtained.CT imaging was performed with iterative reconstruction techniques and/or automated exposure control to reduce radiation dose.COMPARISON: None.FINDINGS:Small hiatal hernia.No evidence of bowel obstruction or inflammation. Normal appendix.Trace free fluid in the pelvis is likely physiologic.No suspicious or acute findings in the abdominal solid organs.Gallbladder is nondistended.Osseous structures are intact.IMPRESSION:No acute process.Small hiatal hernia.[facility]-AJJSXK3Zzxiwmf MethodistComprehensive metabolic [id number] 01:13:41 Test Item Value Reference Range Interpretation Comments Sodium (test code = 135 135- 148 mEq/L 2951-2) Potassium (test code = 3.9 3.5- 5.0 mEq/L 2823-3) Chloride (test code = 102 98- 112 mEq/L 2075-0) CO2 (test code = 2027-9) 23 24- 31 mEq/L L Anion gap (test code = 10@ANIO 7- 15 mEq/L 21844-0) BUN (test code = 3094-0) 8 mg/dL 6-20 Creatinine (test code = 0.47 mg/dL 0.5-0.9 L 2160-0) Glucose (test code = 88 mg/dL 65-99 2345-7) Calcium (test code = 9.3 mg/dL 8.3-10.2 99061-1) Protein (test code = 7.4 g/dL 6.3-8.3 -[place] n 2885-2) 4.6-7.0 g/dL1 week 4.4-7 .6 g/dL7 months-1y ear 5.1-7 .3 g/dL1-2 years 5.6-7 .5 g/dL>3 years 6.0-8 .0 g/qI08-485 6.3-8 .3 g/dL Albumin (test code = 4.0 g/dL 3.5-5 1751-7) A/G ratio (test code = 1.2 0.7-3.8 1759-0) Alkaline phosphatase 76 U/L 35-104 (test code = 6768-6) AST (test code = 1920-8) 20 U/L 10-35 ALT (test code = 1742-6) 9 U/L 5-50 Total bilirubin (test <0.2 0-1.2 code = 1974-2) Lab Interpretation (test Abnormal code = 49510-0) [place] MethodistLipase [id number] 01:13:41 Test Item Value Reference Range Interpretation Comments Lipase (test code = 3040-3) 19 U/L 13-60 [place] MethodistEstimated [id number] 01:13:29 Test Item Value Reference Range Interpretation Comments Estimated GFR (test >=90 mL/min/1.73 m2 Caterg ory Units code = 5488) InterpretationG 1 >=90 Normal or highG2 60-89 Mildly lfxjtzbeeS2x 45-59 Mildly to mode rately yrhalqhwmC9a 30-44 Moderately to severely decreasedG4 15-29 Severely decre asedG5 <15 Kidn ey failureThe eGFR was calculated usin g the Chronic Kidney Disease Epidemiology Co llaboration (CKD-EPI) equat ion. Interpretation is based on recommendations of the National Kidney Foundation-Kidn ey Disease Outcomes Qualit y Initiative (NKF-KDOQI) pub lished in 2013. [place] [facility] with [facility] and [id number] 00:50:23 Test Item Value Reference Range Interpretation Comments WBC (test code = 48430-6) 8.70 4.50- 11.00 k/uL RBC (test code = 65104-4) 4.28 m/uL 4.2-5.5 HGB (test code = 718-7) 11.7 g/dL 12-16 L HCT (test code = 4544-3) 37.0 % 37-47 MCV (test code = 787-2) 86.4 fL 82-100 MCH (test code = 785-6) 27.3 pg 27-34 MCHC (test code = 786-4) 31.6 g/dL 31-37 RDW - SD (test code = 40.4 fL 37-55 05994-6) MPV (test code = 53618-7) 9.6 fL 8.8-13.2 Platelet count (test code 297 150- 400 k/uL = 47680-1) Nucleated RBC (test code 0.00 /100 WBC = 95316-6) Neutrophils (test code = 51.1 % 39-69 07020-7) Lymphocytes (test code = 39.2 % 25-45 57870-9) Monocytes (test code = 7.8 % 0-10 08578-4) Eosinophils (test code = 1.0 % 0-5 46813-6) Basophils (test code = 0.7 % 0-1 29018-2) Immature granulocytes 0.2 % 0-1 "Immat ure (test code = 26218-7) granul ocytes" (promyelocytes, myelocytes, metamyelocytes) Lab Interpretation (test Abnormal code = 47265-8) [place] [facility] urine [id number] 00:36:03 Test Item Value Reference Range Interpretation Comments hCG qualitative, Negative Sensitivity of HCG test: urine (test code = 25 mIU/mL 6-3) [facility] [id number] 00:34:58 Test Item Value Reference Range Interpretation Comments Urine culture (test SEE COMMENT Bacteriu landry screen code = 7619603) negative. [place] [facility] qualitative, serum [id number] 16:18:10 Test Item Value Reference Range Interpretation Comments hCG qualitative, Negative Sensitivity of HCG test: serum (test code = 25 mIU/mL 8-8) [place] MethodistBasic metabolic [id number] 16:11:00 Test Item Value Reference Range Interpretation Comments Sodium (test code = 2951-2) 140 135- 148 mEq/L Potassium (test code = 2823-3) 3.7 3.5- 5.0 mEq/L Chloride (test code = 2075-0) 103 98- 112 mEq/L CO2 (test code = 2027-9) 25 24- 31 mEq/L Anion gap (test code = 23555-9) 12@ANIO 7- 15 mEq/L BUN (test code = 3094-0) 13 mg/dL 6-20 Creatinine (test code = 2160-0) 0.70 mg/dL 0.5-0.9 Glucose (test code = 2345-7) 93 mg/dL 65-99 Calcium (test code = 55524-5) 9.6 mg/dL 8.3-10.2 [place] MethodistSmear [id number] 16:06:29 Test Item Value Reference Range Interpretation Comments Platelet slide review (test code Sana adequate = 52715-1) Enlarged platelets (test code = Moderate A 67667-0) Lab Interpretation (test code = Abnormal 82796-7) [place] MethodistCT Head Wo [id number] 15:54:03Hm Interface, Radiology Results 05/02/2020 3:57 PM [...] IMPRESSION:1. No CT evidence of acute intracranial abnormality.[id number] Caodaism Epilepsy/Seizure [id number] 09:01:11EPILEPSY MONITORING UNIT REPORT Patient Name: Heather [...] left frontal central temporal region. ICD-10 Code: K482Wcgpyrw MethodistEpilepsy/Seizure monitoring 2020-04-23 09:00:05EPILEPSY MONITORING UNIT REPORT [...] left frontal central temporal region. ICD-10 Code: M275Flytvfr Caodaism Epilepsy/Seizure [id number] 08:55:34EPILEPSY MONITORING UNIT REPORT Patient Name: Heather [...] left frontal central temporal region. ICD-10 Code: Q431Dmslzep Caodaism Epilepsy/Seizure [id number] 08:45:34EPILEPSY MONITORING UNIT REPORT Patient Name: Heather [...] left frontal central temporal region. ICD-10 Code: L868Qtexykd MethodistDouble-stranded DNA (dsDNA) antibodies, [id number] 13:15:26 Test Item Value Reference Range Interpretation Comments DNA Ab screen (test code = 1297) Not Detected Not-Detected Enrique MethodistRibonucleic antibody (SHAKER OUT)2020-04-06 18:25:47 Test Item Value Reference Range Interpretation Comments Ribonucleic antibody <0.2 0.0- 0.9 AI (SHAKER OUT) (test code = 71894-8) Ribonucleic antibody Negative AI Anti-ri bonucleic (SHAKER OUT) interp (test protein ( anti-SHAKER OUT) code = 5267) antibodies are typically found in patients with m ixed connective tiss ue disease, but ca n also be seen in christin ents with systemic l upus erythematosus ( SLE) or systematic scle rosis. Enrique PiedraJo-1 [id number] 18:25:46 Test Item Value Reference Range Interpretation Comments Bernarda-1 antibody (test <0.2 0.0- 0.9 AI code = 47927-5) Bernarda-1 antibody interp Negative Anti-Bernarda -1 antibody is (test code = 5263) predomina ntly found in patients with polymyositis, e specially for those with interstitial pu lmonary fibrosis. It ca n also be found in patien ts with dermatomyositis . Enrique CruzistScl-70 [id number] 18:25:46 Test Item Value Reference Range Interpretation Comments Scleroderma SCL-70 Ab <0.2 0.0- 0.9 AI (test code = 86762-6) Scl-70 antibody interp Negative AI Anti- Scl-70 (test code = 5268) (topoisom erase I) antibodies are found in patients with s ystemic sclerosis (SSc or scleroderma), a nd have been reported t o be predictive of d iffuse cutaneous invol vement. Anti-Scl-70 ant ibodies may also be pre sent in patients with s ystemic lupus erythemat osus (SLE). [facility] [id number] 18:25:46 Test Item Value Reference Range Interpretation Comments Sjogren's SS-A <0.2 0.0- 0.9 AI antibody (test code = 63644-9) SS-A antibody interp Negative AI SS-A an tibody is (test code = 2235) sensitive for Sjogren's syndrome, but m ay also be positive with s ystemic lupus erythemat osus (SLE), and syst emic sclerosis. [facility] [id number] 18:25:45 Test Item Value Reference Range Interpretation Comments Centromere antibody <0.2 0.0- 0.9 AI (test code = 8068-9) Centromere antibody Negative AI Anti-sae tromere interp (test code = antibodi es are found 78996-7) in patients wit h systemic sclero sis (SSc or sclerod sb), especially for those with limited cu taneous or CREST syndro me. Anti-centromere antibodies may also be found in patien ts with other rheumatic or connective tiss ue diseases. [place] NancyistSmith sofkkatu4859-36-30 18:25:45 Test Item Value Reference Range Interpretation Comments Matthew antibody (test <0.2 0.0- 0.9 AI code = 61176-5) Matthew antibody Negative AI Anti-Matthew an tibodies interp (test code = occurs i n 30-35% of 5269) systemic lupus erythematosus ( SLE) cases, but is v gilbert specific for SL E. It may also present in mixed connective-tiss ue disease (MCTD). Nunez MethodistSS-B rpuqrdcp4962-93-41 18:25:44 Test Item Value Reference Range Interpretation Comments Sjogren's SS-B 0.6 0.0- 0.9 AI antibody (test code = 3001) SS-B antibody interp Negative AI SS-B/La antibody is seen (test code = 2237) in patien ts with Sjogren syndrome, but m ay also be positive with s ystemic lupus erythemat osus (SLE), and syst emic sclerosis. [place] MethodistKeppra (Levetiracetam) waomt8566-62-23 17:50:04 Test Item Value Reference Interpretation Comments Range Levetiracetam 23 ug/mL 12-46 INTERPRETIVE I NFORMATION: (test code = Keppra 4478-4) (Levetiracetam) Therapeutic Range: 12-46 u g/mL Toxic: Not wel l EstablishedPhar macokinetics of levetiracetam a re affected by renal function. Adverse effects may include andi nolence, weakness, heada justus and vomiting.This l evetiracetam (Keppra) immuno assay uses the [employer] reagents, which has known cross -reactivity with the drug brivar acetam (Briviact) and may report inaccurate resu lts. Patients transitioning f rom levetiracetam t o brivaracetam or those who ar e using both medications alejandra uld not monitor drug concentrat ions with the Serious [employer] assay. These patients should be monitored using a validat ed chromatographic methodology that distinguis hes between drugs to determ ine drug concentrations. Performed By: [facility] [place] [address] [id number] Director: Gege Pierson MD [facility] wkcscbb4699-00-31 17:38:16 Test Item Value Reference Range Interpretation Comments POC glucose (test code = 102 mg/dL 65-99 H Ope rator Name: [id number]) Gerber Coulter ice ID: [id number] Lab Interpretation (test Abnormal code = 13961-4) [place] NancyistHomocystine, ekkhya0430-30-15 18:55:23 Test Item Value Reference Range Interpretation Comments Homocysteine (test 6.7 umol/L 0-15 The risk for coronary code = 28221-5) vascular dis ease increases progressively w ith homocysteine concentration. A 3.4 times greater r isk is associated with a homocysteine concentration o f greater than 15.8 umol/L as carlin red to a concentration below 14.1 umol/L. S nieshan is slightly hem olyzed. Interpret resu lts accordingly. Enrique MethodistPotassium gvxwb0815-78-58 18:49:08 Test Item Value Reference Range Interpretation Comments Potassium (test code = 2823-3) 3.7 3.5- 5.0 mEq/L Nunez MethodistVitamin D 25 hydroxy ecsta9336-68-85 15:53:37 Test Item Value Reference Range Interpretation [...] hods. Lab Interpretation Abnormal (test code = 68006-1) Enrique MethodistECG 12 vems6800-39-47 13:34:29 Test Item Value Reference Range Interpretation Comments Ventricular rate (test 77 code = 253) Atrial rate (test code 77 = 255) NE interval (test code 154 = 266) QRSD [...] of 12-NOV-2019 21:10,-No significant change was found- [place] MethodistEEG (routine)2020-04-05 11:50:53VIDEO-EEG RECORDING AWAKE & ASLEEP. [...] are captured. Jojo Cruz MD ICD-10 Code: U783Rxuyluu MethodistSyphilis total wandbaqb8696-28-39 10:02:20 Test Item Value Reference Range Interpretation [...] 09:26 __ (date/time). Credit issued. Enrique CruzistRheumatoid kcmmls0845-14-39 09:01:34 Test Item Value Reference Range Interpretation Comments Rheumatoid factor (test <10 0- 13 IU/mL code = 44466-8) LUIS MIGUEL (test code = LUIS MIGUEL) Unable to perform testing, specimen is _HEMOLYZED___. Recollect requested for __K__ (tests). __LILA JOHN (name/location) notified by ___JT_ (tech ID) at __ 04/05/2020 07:01 __ (date/time). Credit issued. Enrique MethodistVitamin B12 rotqt7401-19-99 06:58:42 Test Item Value Reference Range Interpretation Comments Vitamin B12 (test 739 pg/mL 211-946 Significan t overlap code = 2132-9) exists betwee n normal and deficiency states.However, most patients with deficiencies wi ll have Serum B12 <2 00 pg/mL. Enrqiue MethodistFolate vfeey0125-33-49 06:58:42 Test Item Value Reference Range Interpretation Comments Folate (test code = 2284-8) 14.0 ng/mL 4.8-24.2 Enrique MethodistMagnesium zgugo4499-45-94 06:52:05 Test Item Value Reference Range Interpretation Comments Magnesium (test code = 36119-2) 1.8 mg/dL 1.6-2.6 Enrique MethodistT4, fxia0205-73-30 06:52:05 Test Item Value Reference Range Interpretation Comments T4, free (test code = 3024-7) 1.1 ng/dL 0.9-1.7 Enrique CruzistThyroid stimulating ohfpvzh0239-48-75 06:52:05 Test Item Value Reference Range Interpretation Comments TSH (test code = 3016-3) 1.26 0.27- 4.20 uIU/mL Enrique QgjqjmcfbI44244-37-88 06:52:05 Test Item Value Reference Range Interpretation Comments T3 (test code = 3053-6) 89 ng/dL 80-200 Enrique PiedraC-reactive vemwjup5513-83-72 06:52:05 Test Item Value Reference Range Interpretation Comments CRP (test code = 1987-) <0.30 0-0.5 Enrique PiedraHIV Ag/Ab twuanvosvsa6965-25-95 06:48:46 Test Item Value Reference Range Interpretation Comments HIV Ag/Ab combination (test code Non-reactive Non-reactive = 5299) Nunez MethodistSedimentation bncg0299-18-84 22:23:01 Test Item Value Reference Range Interpretation Comments Sedimentation rate (test code = 6 0- 20 mm/hr 34354-6) Nunez NancyadrianoUrine drugs of abuse udsvdk0599-75-84 21:28:59 Test Item Value Reference Interpretation Comments Range Amphetamine screen, Negative urine (test code = 3349-8) Barbiturate screen, Negative urine (test code = 3377-9) Benzodiazepine Positive A screen, urine (test code = 3390-2) Cocaine screen, Negative urine (test code = 3397-7) Methadone Negative metabolite (EDDP), urine (test code = 48070-1) Opiates screen, Negative urine (test code = 3879-4) Oxycodone screen, Negative urine (test code = 38371-4) Phencyclidine Negative screen, urine (test code = 3936-2) Tricyclic screen, Negative urine (test code = 41614-0) Cannabinoid screen, Negative Drug scr een minimum [...] ired. Lab Interpretation Abnormal (test code = 80938-6) Enrique MethodistLactic acid level, SEPSIS - Now and repeat 2x every 3 hours 2020-04-04 21:27:38 Test Item Value Reference Range Interpretation Comments Lactic acid (test code = 92429-0) 1.1 mmol/L 0.5-2.2 [place] MethodistPhosphorus phyfr5982-49-38 21:27:37 Test Item Value Reference Range Interpretation Comments Phosphorus (test code = 2777-1) 3.7 mg/dL 2.4-4.5 [place] MethodistCBC upyzlxwo8002-69-46 21:21:43 Test Item Value Reference Range Interpretation Comments WBC (test code = 70142-4) 7.66 4.50- 11.00 k/uL RBC (test code = 11019-1) 4.23 m/uL 4.2-5.5 HGB (test code = 718-7) 12.2 g/dL 12-16 HCT (test code = 4544-3) 36.8 % 37-47 L MCV (test code = 787-2) 87.0 fL 82-100 MCH (test code = 785-6) 28.8 pg 27-34 MCHC (test code = 786-4) 33.2 g/dL 31-37 RDW - SD (test code = 44414-4) 40.3 fL 37-55 MPV (test code = 99429-8) 10.1 fL 8.8-13.2 Platelet count (test code = 247 150- 400 k/uL 68926-1) Nucleated RBC (test code = 0.00 /100 WBC 46003-3) Lab Interpretation (test code = Abnormal 83934-9) [place] MethodistProlactin begxo9364-24-97 21:11:11 Test Item Value Reference Range Interpretation Comments Prolactin (test code = 2842-3) 13 ng/mL 5-23 [place] MethodistCRITICAL ZYLY2366-79-41 18:48:10BMax gleason MD 04/20/2020 3:37 PMCritical CarePerformed by: Lila ByersAuthorized by: Max Ron MD Critical care provider statement: Critical care time (minutes): 20 Critical care was necessary to treat or prevent imminent or life- threatening deterioration of the following conditions: ADVANCED PRACTICE PROFESSIONAL failure or compromise Critical care was time [...] from another provider.: Hawa CruzistPET Brain Metabolic Feaq9957-25-49 14:42:07Hm Interface, Radiology Results Incoming - 03/30/2020 [...] interictal study.2.Diffuse cerebellar hypometabolism suggests a pharmacologic effect.[facility]-[id number] MethodistContinuous EEG npuyjctypt9424-26-83 17:34:53CONTINUOUS VIDEO-EEG MONITORING REPORT Patient Name: Heather [...] regions independently. No seizures occurred. ICD-10 Code: R56.9[facility] MethodistANA blztl2948-31-06 13:12:21 Test Item Value Reference Range Interpretation Comments MARCELINO titer (test code = 16819-0) 1:160 Not-Detected A MARCELINO pattern (test code = 84084-3) Homogeneous Not-Detected A Lab Interpretation (test code = Abnormal 99191-1) Nunez ZzsmazsoiLAF7514-63-58 13:08:33 Test Item Value Reference Range Interpretation Comments MARCELINO screen (test code Positive Negative A Test p erformed using = 550) [employer] DAPI MARCELINO kit (Indirect Immunofluoresce nce Assay) for Anti -Nuclear Antibody on [employer]AFootfall123er 16 0 Analyzer. Lab Interpretation Abnormal (test code = 38093-8) [place] MethodistManual hbarvqyudxpl1857-33-68 08:57:11 Test Item Value Reference Range Interpretation Comments Manual differential (test code = PERFORMED 02519-3) Neutrophils (test code = 51.0 % 39-69 63245-9) Lymphocytes (test code = 34.0 % 25-45 81518-8) Monocytes (test code = 48329-7) 13.0 % 0-10 H Eosinophils (test code = 2.0 % 0-5 40485-0) Basophils (test code = 83399-8) 0.0 % 0-1 Metamyelocytes (test code = 0 % 740-1) Promyelocytes (test code = 0 % 783-1) Platelet slide review (test code Sana adequate = 38727-6) Anisocytosis (test code = 702-1) Moderate Ovalocytes (test code = 774-0) Moderate Enlarged platelets (test code = Moderate A 62466-4) Lab Interpretation (test code = Abnormal 54092-4) [place] MethodistContinuous EEG hsyzzjairt9323-91-29 07:42:19CONTINUOUS VIDEO- EEG MONITORING REPORT Patient Name: [...] independently. No seizures occurred. ICD-10 Code: R56.9[place] Caodaism Continuous EEG hvjvoudrkq8907-67-29 07:19:24 CONTINUOUS VIDEO-EEG MONITORING REPORT Patient Name: [...] ICD-10 Code: R56.9[place] MethodistEEG (routine) - Baseline RBR5381-77-72 06:43:32EEG RECORDING AWAKE & ASLEEP - Baseline [...] agree with the above findings. Richard Huizar MDSac-Osage Hospitalmingo MethodistFerritin afdro4319-52-59 07:54:01 Test Item Value Reference Range Interpretation Comments Ferritin level (test code = 2276-4) <13 13-150 A Lab Interpretation (test code = Abnormal 66729-0) [place] MethodistTotal iron binding qubunhjm1911-29-03 07:50:12 Test Item Value Reference Range Interpretation Comments Iron level (test code = 2498-4) 20 ug/dL 37-145 L Iron binding capacity (test code = 335 ug/dL 923-539 8567-7) % Saturation (test code = 2502-3) 6.0 % 15-38 L Lab Interpretation (test code = Abnormal 01412-7) [place] MethodistCortisol level, ihlwte5749-25-06 20:48:37 Test Item Value Reference Range Interpretation Comments Cortisol, random 2 ug/dL Reference R anges are not (test code = 2143-6) establi shed for non-timed Cortisol levels .Reference Range for Timed Cortisol: 6 - 10 AM 6 - 18 ug/dl 4 - 8 PM 3 - 11 ug/ dl [place] MethodistCreatine kinase, total (CPK)2019-11-12 20:42:35 Test Item Value Reference Range Interpretation Comments Creatine kinase (test code = 2157-6) 56 U/L 26-192 [place] MethodistCT Cervical Spine Wo Ijkjbhyp6934-70-16 18:17:20Hm Interface, Radiology Results 11/12/2019 6:20 PM [...] fracture or subluxation identified in the cervical spine.[facility]-[id number] MethodistCT Maxillofacial Wo Efbrzuil1612-65-79 18:15:46Hm Interface, Radiology Results 11/12/2019 6:18 PM [...] soft tissues are unremarkable.The paranasal sinuses are clear.[facility]-[id number] Caodaism Alcohol level, fuxxu8321-91-77 18:06:03 Test Item Value Reference Range Interpretation Comments Alcohol percent None Detected % Normal (test code = None Detec tedLegal 5643-2) Intoxication in [place] 80 mg/dL (0.08% ) - Whole BloodToxi c Concentration 200 mg/dL (0.2%)Potential ly Fatal 350 - 500 mg/dL (0.35 - 0 .5%) [place] MethodrustXR Chest 1 Vw Qwbyusdd9945-74-86 17:37:03Hm Interface, Radiology Results 11/12/2019 5:40 PM CDTEXAMINATION: XR CHEST 1 VW PORTABLECLINICAL HISTORY: SOBXR CHEST 1 VW PORTABLE images are submittedCOMPARISON: NONEFINDINGS:The cardiac silhouette is normal in size. The pulmonary vasculature is within normal limits. The lung zones have no focal area of consolidation. There is no pleural effusion or pneumothorax.IMPRESSION:1. Thereis no acute cardiopulmonary disease.JO-1AQ4373VVHIcwkvyf MethodistRPR Sivpaajqdxg8455-35-29 16:47:08 Test Item Value Reference Range Interpretation [...] = 06-14-2020 N Expiration Dt) Thyroid Stimulating Elkpuap8080-55-52 06:31:44 Test Item Value Reference Range Interpretation Comments TSH (test code = TSH) 3.830 mIU/mL 0.270-4.200 Lipid Afpsh7997-37-35 06:24:40 Test Item Value Reference Range Interpretation Comments Cholesterol Total 152 mg/dL 0-200 RISK OF HE ART (test code = DISEASEPublishe d by Cholesterol Total) Citizen Of [place] Heart Association Marcelino lyte Optimal Borderl ine [...] LDL/HDL Ratio=L DL Calc/HDL Chol Urine Drug Rdrdtk5919-78-15 21:53:06 Test Item Value Reference Range Interpretation [...] if desired . Urinalysis with Culture, if pztgdmudj2384-44-30 21:40:53 Test Item Value Reference Range Interpretation [...] Indicated Not Indicated Micro Ind?) Comprehensive Metabolic Jzubk5826-19-86 21:34:15 Test Item Value Reference Range Interpretation [...] = A/G 1.6 ratio N Ratio) Alcohol Nbijd9740-70-64 21:34:15 Test Item Value Reference Range Interpretation Comments Ethanol Level (test <0.00 g/dL 0.00-0.01 Intoxica vandana 0.080 g/dL code = Ethanol or more Level) Ethanol Inst (test <0 N code = Ethanol Inst) Comprehensive Metabolic Lfrqu8288-47-26 21:34:15 Test Item Value Reference Range Interpretation [...] National Kidney Foundation, http://nkdep.ni h.gov Comprehensive Metabolic Xhgyt0887-97-35 21:34:15 Test Item Value Reference Range Interpretation [...] Foundation, http://nkdep.ni h.gov Complete Blood Count with Pfnhovtvxdgo3550-38-63 21:15:24 Test Item Value Reference Range Interpretation [...] code = IPF) 0 % N Automated Tmjwrvfsjxan4262-67-92 21:15:24 Test Item Value Reference Range Interpretation Comments Neutro Auto (test code = Neutro 54.3 % 36.0-70.0 Auto) Lymph Auto (test code = Lymph Auto) 32.3 % 12.0-44.0 Jackson Auto (test code = Jackson Auto) 11.1 % 0.0-11.0 H Eos, Auto (test code = Eos, Auto) 1.3 % 0.0-7.0 Basophil Auto (test code = Basophil 0.7 % 0.0-2.0 Auto) Neutro Absolute (test code = Neutro 6.2 x10 1.6-7.4 Absolute) Lymph Absolute (test code = Lymph 3.71 x10 .50-4.60 Absolute) Jackson Absolute (test code = Jackson 1.28 x10 .00-1.20 H Absolute) Eos Absolute (test code = Eos 0.15 x10 0.00-0.74 Absolute) Baso Absolute (test code = Baso 0.08 x10 0.00-0.21 Absolute) IG Tadcp9347-26-82 21:15:24 Test Item Value Reference Range Interpretation Comments IG (test code = IG) 0.3 % 0.0-5.0 IG Abs (test code = IG Abs) 0 x10 N HCG Qualitative Vlzyq7419-15-58 20:45:17 Test Item Value Reference Range Interpretation [...] 72 hours. Lot # (test code = 194839 N Lot #) Expiration Dt (test 2020-12-12 N code = Expiration Dt) Neg Control (test Negative code = Neg Control) Pos Control (test Positive code = Pos Control) Internal QC (test Acceptable code = Internal QC) RPR Iodmhvgegly4650-99-00 12:07:58 Test Item Value Reference Range Interpretation [...] = 04-14-2020 N Expiration Dt) Thyroid Stimulating Ymchgdx1203-64-05 07:59:52 Test Item Value Reference Range Interpretation Comments TSH (test code = TSH) 0.717 mIU/mL 0.270-4.200 Lipid Sxxso8906-09-82 07:52:46 Test Item Value Reference Range Interpretation Comments Cholesterol Total 141 mg/dL 0-200 RISK OF HE ART (test code = DISEASEPublishe d by Cholesterol Total) Citizen Of [place] Heart Association Marcelino lyte Optimal Borderl ine [...] LDL/HDL Ratio=L DL Calc/HDL Chol Urine Drug Sbimhm4181-21-28 15:27:40 Test Item Value Reference Range Interpretation [...] matory test if desired . Comprehensive Metabolic Mfdcf8071-19-67 15:15:20 Test Item Value Reference Range Interpretation [...] A/G 1.9 ratio N Ratio) Comprehensive Metabolic Xsrct4987-69-37 15:15:20 Test Item Value Reference Range Interpretation [...] the National Kidney Foundation, http://nkdep.ni h.gov Alcohol Gktuu2541-28-72 15:15:20 Test Item Value Reference Range Interpretation Comments Ethanol Level (test <0.00 g/dL 0.00-0.01 Intoxica vandana 0.080 g/dL code = Ethanol or more Level) Ethanol Inst (test <0 N code = Ethanol Inst) Comprehensive Metabolic Rrexp3723-52-44 15:15:20 Test Item Value Reference Range Interpretation [...] ag e have not been validated by [facility] MDRD study and should be interpreted wit h caution. eGFR R esult Interpretation: eGFR > or = 60 is in the Normal RangeeGF R < 60 may mean kid shannan diseaseeGFR < 1 5 may mean kidney failure Rang es recommended by the National Kidney Foundation, http://nkdep.ni h.gov Urinalysis Qjvnvdudcwk1177-90-21 15:11:20 Test Item Value Reference Range Interpretation Comments UA WBC (test code = UA WBC) 6-10 0-5 A UA RBC (test code = UA RBC) 0-5 0-5 UA Bacteria (test code = UA Moderate A Bacteria) UA Squam Epithelial (test code = UA TNTC A Squam Epithelial) UA Mucous (test code = UA Mucous) Few A Urinalysis with Microscopic if awdmuqhwr6964-62-88 14:42:58 Test Item Value Reference Range Interpretation [...] GL_SJM_UA_MICRO _IN D Complete Blood Count with Tpmykhpnuwne2247-48-38 14:37:26 Test Item Value Reference Range Interpretation [...] code = IPF) 0 % N Automated Yvgbomydamgt7144-41-89 14:37:26 Test Item Value Reference Range Interpretation Comments Neutro Auto (test code = Neutro 65.8 % 36.0-70.0 Auto) Lymph Auto (test code = Lymph Auto) 25.5 % 12.0-44.0 Jackson Auto (test code = Jackson Auto) 7.3 % 0.0-11.0 Eos, Auto (test code = Eos, Auto) 0.7 % 0.0-7.0 Basophil Auto (test code = Basophil 0.5 % 0.0-2.0 Auto) Neutro Absolute (test code = Neutro 6.0 x10 1.6-7.4 Absolute) Lymph Absolute (test code = Lymph 2.34 x10 .50-4.60 Absolute) Jackson Absolute (test code = Jackson .67 x10 .00-1.20 Absolute) Eos Absolute (test code = Eos 0.06 x10 0.00-0.74 Absolute) Baso Absolute (test code = Baso 0.05 x10 0.00-0.21 Absolute) IG [id number] 14:37:26 Test Item Value Reference Range Interpretation Comments IG (test code = IG) 0.2 % 0.0-5.0 IG Abs (test code = IG Abs) 0 x10 N HCG Qualitative Esdeo8903-26-25 14:34:08 Test Item Value Reference Range Interpretation [...] 72 hours. Lot # (test code = [id number] N Lot #) Expiration Dt (test 2020-03-14 N code = Expiration Dt) Neg Control (test Negative code = Neg Control) Pos Control (test Positive code = Pos Control) Internal QC (test Acceptable code = Internal QC) DRUGS OF ABUSE SCREEN [id number] 17:11:00 Test Item Value Reference Range Interpretation [...] = [place]) concentrati on: 300 ng/mL URINALYSIS [id number] 17:08:00 Test Item Value Reference Range Interpretation [...] (test code = MOD NONE BACU) URINALYSIS [id number] 17:00:00 Test Item Value Reference Range Interpretation [...] (test code = NONE BACU) HCG SERUM [id number] 16:52:00 Test Item Value Reference Range Interpretation Comments HCG SERUM QUAL (test code = HCGQL) NEGATIVE NEGATIVE - CT HEAD/BRAIN W/O [id number] 16:51:00 FAX: Theresa Fields MD [place]: St: REG Name: HEATHER HOPE [facility] : 1990 Age/S: 28/F [address] [facility] Unit: [id number] Loc: [place], [place]: [place] [address] Acct: [id number] Dis Date: Status: REG ER PHONE #: [phone] Exam Date: 02/23/2019 1642 FAX #: [phone] Reason: SEIZURE EXAMS: CPT CODE: [id number] CT HEAD/BRAIN W/O CONT 19325 Dictation location: U19. CT HEAD WITHOUT CONTRAST. [...] MD Technologist: HEATHER DICKSON Trnscrd Dt/Tm: 02/23/2019 (9001) t.[email or web address] Orig Print D/T: S: 02/23/2019 (6250 PAGE 1 Signed ReportBASIC METABOLIC [id number] 16:31:00 Test Item Value Reference Range Interpretation [...] CA) 8.8 mg/dl 8.0-10.5 N BASIC METABOLIC [id number] 16:26:00 Test Item Value Reference Range Interpretation [...] code = CA) mg/dl 8.0-10.5 CBC W/AUTO [id number] 16:15:00 Test Item Value Reference Range Interpretation [...] 3-60 N code = VLDL) RAPID PLASMA [id number] 10:31:00 Test Item Value Reference Range Interpretation Comments RAPID PLASMA REAGIN (test code = Nonreactive Nonreactive RPR) GLYCOSYLATED HEMOGLOBIN (HA1C)2018-12-07 10:05:00 Test Item Value Reference Range Interpretation Comments GLYCOSYLATED HEMOGLOBIN (HA1C) 5.8 % TOT HB 4.5-6.2 N (test code = GLYHGB) [id number] 15:31:00 Test Item Value Reference Range Interpretation Comments ACETAMINOPHEN (test < 1 MCG/ML 10-30 L Acetamin ophen is code = ACET) possibly toxic at levels of: 1. m ore than 150 MCG/ML 4 hours post kaylin stion. 2. more than 5 0 MCG/ML 12 hours post ingestion. [id number] 15:31:00 Test Item Value Reference Range Interpretation Comments SALICYLATE (test code = < 3 MG/DL 0-20 N Refe rence Range: BOSSMAN) Analgesic...... ...... ...... < 10 mg /dl Therapeutic.... ...... ...... 15-20 mg /dl Mild Toxicity....... ...... . > 30 mg/dl Severe Toxicity....... ..... > 60 mg/dl UA RFLX [id number] 14:18:00 Test Item Value Reference Range Interpretation [...] Clean Catch (test code = UASPEC) UA [id number] 14:18:00 Test Item Value Reference Range Interpretation Comments UA WBC (test code = WBCU) < 10 #/hpf <10 UA RBC (test code = RBCU) 0-2 #/hpf NONE SEEN A UA BACTERIA (test code = BACU) RARE #/hpf NONE SEEN UA SQUAMOUS CELLS (test code = 0 - 20 #/lpf <100 SQU) UA MUCUS (test code = MUCU) 1+ #/lpf NONE SEEN BASIC METABOLIC [id number] 14:16:00 Test Item Value Reference Range Interpretation [...] 9.4 MG/DL 8.7-10.5 N CA) HEPATIC FUNCTION [id number] 14:16:00 Test Item Value Reference Range Interpretation [...] 50-136 N TOTAL (test code = ALKP) [id number] 14:16:00 Test Item Value Reference Range Interpretation Comments CK (test code = CKT) 87 Units/L 26-192 N [id number] 14:16:00 Test Item Value Reference Range Interpretation Comments ALCOHOL (test code = < 3 MG/DL 0-10 N 0 - 10: Should be ALC) interpreted as NEGATIVE. 11 - 50: None to mild euphoria. 51 - 100: Mild influence on vision and dark adapta tion. > 80: Legal intoxication; D epression of ADVANCED PRACTICE PROFESSIONAL; Increasing degr ee of poisoning. > 400: Fatalities repo rted. Results are for medical purposes only a nd not forlegal or emp loyment evaluative purp oses. BASIC METABOLIC [id number] 14:09:00 Test Item Value Reference Range Interpretation [...] 9.4 MG/DL 8.7-10.5 N CA) HEPATIC FUNCTION [id number] 14:09:00 Test Item Value Reference Range Interpretation [...] TOTAL (test Units/L 50-136 code = ALKP) [id number] 14:09:00 Test Item Value Reference Range Interpretation Comments CK (test code = CKT) Units/L 26-192 [id number] 14:09:00 Test Item Value Reference Range Interpretation Comments ALCOHOL (test code = ALC) MG/DL 0-10 LACTIC ACID [id number] 13:50:00 Test Item Value Reference Range Interpretation Comments LACTIC ACID POC 0.97 MMOL/L 0.90-1.70 N Performed by certified (test code = LACTP) research manufacturing operator at [facility] [id number] 13:48:00 Test Item Value Reference Range Interpretation Comments GLUBED (test code = 88 MG/DL 65-99 N Performe d by certified GLUBED) research manufacturing operator at [facility] DRUG OF ABUSE SCREEN [id number] 13:43:00 Test Item Value Reference Interpretation Comments [...] by layton rader methods (i.e., GC/MS) at [facility]. Results of scre en may not be usedin crimi nal justice, job performance or professionalcre dential review, or infa nt custody issues. Negativ e Blanco Level ng/ml ------- ----- Cocaine 300 Methamp hetamine (Ecstacy) 500 Cannabinoids (THC) 50 Amphetamine 1000 Barbiturate s 200 Benzodia zepines 200 Opiat es 300 Ph encyclidine (PCP) 25 UR HCG [id number] 13:39:00 Test Item Value Reference Range Interpretation [...] using aquantitative h CG assay. UA RFLX [id number] 13:38:00 Test Item Value Reference Range Interpretation [...] Clean Catch (test code = UASPEC) UA [id number] 13:38:00 Test Item Value Reference Range Interpretation Comments UA WBC (test code = WBCU) #/hpf <10 UA RBC (test code = RBCU) #/hpf NONE SEEN UA SQUAMOUS CELLS (test code = SQU) #/lpf <100 UA RFLX [id number] 13:38:00 Test Item Value Reference Range Interpretation [...] Clean Catch (test code = UASPEC) UA [id number] 13:38:00 Test Item Value Reference Range Interpretation Comments UA WBC (test code = WBCU) #/hpf <10 UA RBC (test code = RBCU) #/hpf NONE SEEN UA SQUAMOUS CELLS (test code = SQU) #/lpf <100 CBC W/AUTO [id number] 13:26:00 Test Item Value Reference Range Interpretation [...] = BA#) 0.05 x10 3/uL 0.0-0.2 N [id number] 19:07:00 Test Item Value Reference Interpretation Comments Range LEVETIRACETAM 28.7 ug/mL 10.0-40.0 This test was developed and (test code = its performance LEVTAM) characteristics determined by [facility]. It has not been cleared orappro froylan by the Food and Drug Administration. Performed At: [facility] Ezekiel benz[address] [facility] Ezekiel benz [place] [id number] ra Larissa MENDOZA Ph:[phone] BASIC METABOLIC [id number] 04:58:00 Test Item Value Reference Range Interpretation [...] code = 8.9 MG/DL 8.7-10.5 N CA) [id number] 04:58:00 Test Item Value Reference Range Interpretation Comments MAGNESIUM (test code = MAG) 1.9 MG/DL 1.8-2.4 N CBC W/AUTO [id number] 04:08:00 Test Item Value Reference Range Interpretation [...] 0.0-0.2 N NRBC#) - MRI BRAIN W/O [id number] 13:51:00 Patient Name: HEATHER HOPE Unit No: [id number] EXAMS: CPT CODE: [id number] MRI BRAIN W/O CONTRAST [id number] Reason: sz INDICATION: Seizure COMPARISON: CT brain, [...] MD Technologist: Andre Self MRI Trscrpt Dt/ (5692)t.[id number].[id number] Orig Print D/T: S: 09/17/2018 (3027) [facility] CntNAME: HEATHER HOPE [address] PHYS: Felecia Dominguez MD [facility] [address] : 1990 AGE: 27 SEX: F LOC: D.D313 1 PHONE #: [phone] EXAM DATE: 09/17/2018 STATUS: ADM IN FAX #: RAD NO: DC Dt: PAGE 1 Signed [id number] 07:25:00 Test Item Value Reference Range Interpretation Comments PROLACTIN (test code = 24.6 ng/mL 4.8-23.3 H Perfo rmed At: HD PROLAC) [facility] [address] [id number] Sb Man MD Ph:[phone] UA RFLX MICROSCOPIC [id number] 19:02:00 Test Item Value Reference Range Interpretation [...] UACULT) URINE SOURCE: Clean CatchUA RFLX MICROSCOPIC [id number] 18:56:00 Test Item Value Reference Range Interpretation [...] (test code = UACULT) URINE SOURCE: Clean [id number] 15:56:00 Test Item Value Reference Range Interpretation Comments CK (test code = CKT) 34 Units/L 26-192 N BASIC METABOLIC [id number] 12:57:00 Test Item Value Reference Range Interpretation [...] code = 8.6 MG/DL 8.7-10.5 L CA) [id number] 12:57:00 Test Item Value Reference Range Interpretation Comments CK (test code = CKT) 32 Units/L 26-192 N CBC W/AUTO [id number] 12:33:00 Test Item Value Reference Range Interpretation [...] 3/uL 0.0-0.2 N NRBC#) TOTAL IRON BINDING [id number] 05:50:00 Test Item Value Reference Range Interpretation Comments SERUM IRON (test code = IRON) 17 MCG/DL 50-170 L TOTAL IRON BINDING CAPACITY (test 363 MCG/DL 280-400 N code = TIBC) IRON SATURATION (test code = 5 % 15-50 L FESAT) [id number] 05:50:00 Test Item Value Reference Range Interpretation Comments FERRITIN (test code = LULI) 11 NG/ML 3-105 N HEPATIC FUNCTION [id number] 05:32:00 Test Item Value Reference Range Interpretation [...] code = ALKP) - CT HEAD/BRAIN W/O [id number] 20:19:00 Patient Name: HEATHER HOPE Unit No: [id number] EXAMS: CPT CODE: [id number] CT HEAD/BRAIN W/O CONT 62723 Reason: seizure TECHNIQUE: Contiguous 5 mm images [...] Heath Technologist: Edel Cade CT Trscrpt Dt/ (2018)t.GAVIOTAR.DKW Orig Print D/T: S: 09/14/2018 (2021) CTDI: DLP: [facility] NAME: HEATHER HOPE TIERRA [id number] [facility] PHYS: NGA. Keanu Vázquez [place] [address] : 1990 AGE: 27 SEX: F LOC: D.NER PHONE#: [phone] EXAM DATE: 09/14/2018 STATUS: REG ER FAX #: RAD NO: DC Dt: PAGE 1 Signed Report- XR CHEST 1 [id number] 20:18:00 Patient Name: HEATHER HOPE TIERRA Unit No: [id number] EXAMS: CPT CODE: [id number] XR CHEST 1 V 20487 Reason: screen for pneumonia FINDINGS: Single view ofthe chest shows normal heart size and pulmonary vasculature. The lungs are clear bilaterally. There is no focal infiltrate, pleural effusion or pneumothorax. IMPRESSION: No a cute cardiopulmonary findings at 2018 Reported and signed by: Lashell Jimenez MD CC: Keanu Vázquez MD; Cristiane Heath Technologist: Edel BURNS Trscrpt Dt/ (2017)AngeliqueDKW Orig PrintD/T: S: 09/14/2018 (2020) [facility] NAME: HEATHER HOPE N[id number] PHYS: NGA.01 - Keanu [place]áz[place] [address] : 1990 AGE: 27 SEX: F LOC: DVipinNER PHONE #: [phone] EXAM DATE: STATUS: REG ER FAX #: RAD NO: DC Dt: PAGE 1 Signed ReportHCG SERUM [id number] 20:04:00 Test Item Value Reference Range Interpretation [...] using aquantitative h CG assay. BASIC METABOLIC [id number] 19:51:00 Test Item Value Reference Range Interpretation [...] 9.3 MG/DL 8.7-10.5 N CA) CBC W/AUTO [id number] 19:46:00 Test Item Value Reference Range Interpretation [...] BA#) 0.05 x10 3/uL 0.0-0.2 N BLOOD [id number] 10:00:00 Test Item Value Reference Range Interpretation Comments CULTURE (BEAKER) (test No growth in 5 days code = 1095) HCG, QUANTITATIVE, [id number] 15:37:00 Test Item Value Reference Range Interpretation Comments GONADOTROPIN, CHORIONIC (HCG) 24789 mIU/mL 0-10 H QUANT (BEAKER) (test code = 649) Non- Females: <10 mIU/mL Females: Gestation Age Reference Range(mIU/mL) 0.2-1 Week 5-50 1-2 Weeks 50-500 2-3 Weeks 100-5,000 3-4Weeks 500-10,000 4-5 Weeks 1,000-50,000 5-6 Weeks 10,000-100,000 6-8 Weeks 15,000-200,000 2-3 Months 10,000-100,000COMPREHENSIVE METABOLIC [id number] 15:10:00 Test Item Value Reference Range Interpretation [...] PATIEN TS. CBC W/PLT COUNT & AUTO [id number] 14:53:00 Test Item Value Reference Range Interpretation [...] (test code = 2801) U/S, , FIRST [id number] 07:52:00Reason for exam:-> Reason for exam:->please include [...] 1 day. An embryonic pole is evident. Hamberg-rump length measures 0.63 cm, correlating with estimated [...] MDReport Verified Date/Time: 05/17/2017 07:52:37 Reading Location: [address] Reading Room PREGNANCY SCREEN, [id number] 05:28:00 Test Item Value Reference Range Interpretation Comments TEST URINE (BEAKER) (test Positive code = 583) MR, BRAIN, WITHOUT [id number] 18:54:00Reason for exam:->Stroke evaluationFINAL REPORT MRI brain [...] Parra Verified Date/Time: 05/15/2017 18:54:11 Reading Location: [facility] Radiology Reading Room EEG AWAKE AND [id number] 12:08:00Reason for exam:->? nonconvulsive statusDATE OF TEST: 05/15/2017DATE OF REPORT 05/15/2017 ACC: [id number] EE Start time: 1034 Stop time: 1054 ICD-10: R56.9CPT Code: 51950XSGZWQK: 26 y/o woman with epilepsy found down [...] recordings.Marika Smith M.D.Neurophysiology FellowSwathi Harper M.D.Neurophysiology Attending [id number] 04:27:00 Test Item Value Reference Range Interpretation Comments PROCALCITONIN (BEAKER) (test code 0.17 ng/mL <0.05 H = 3036) SEPSIS RISK (ng/mL)Low: 0.05-0.50Intermediate: 0.51-2.00High: >=[id number] 03:15:00 Test Item Value Reference Range Interpretation Comments PHOSPHORUS (BEAKER) (test code = 3.1 mg/dL 2.3-4.7 604) [id number] 03:15:00 Test Item Value Reference Range Interpretation Comments MAGNESIUM (BEAKER) (test code = 1.9 mg/dL 1.6-2.6 627) BASIC METABOLIC [id number] 03:15:00 Test Item Value Reference Range Interpretation [...] code = 380) LACTIC ACID, VENOUS, WHOLE [id number] 03:09:00 Test Item Value Reference Range Interpretation Comments LACTATE BLOOD VENOUS (2) (BEAKER) 0.6 mmol/L 0.5-2.2 (test code = 2872) Effective 10/17/2015: Units/Reference Range ChangeNew: 0.5-2.2 mmol/L Previous: 5-20 mg/dLPROTHROMBIN TIME/[id number] 03:07:00 Test Item Value Reference Range Interpretation [...] = 2801) RAD, CHEST, 1 VIEW, NON [id number] 01:06:00Reason for exam:->possible infectionShould this be performed at the bedside?->YesFINAL REPORT History: Infection. Comparison: None. Findings: A single view of the chest is submitted. The cardiomediastinal contours are unremarkable. There is no focal consolidation, pneumothorax, large pleural effusion or evidence of overt pulmonary edema. There is no acute bony abnormality. Impression: No acute abnormality. Signed: Shabnam Zhu Verified Date/Time: 05/15/2017 01:06:06 Reading Location: [address] Reading Room
[2020-06-19] MEDS ORDERED: ONDANSETRON 4 MG/2 ML VIAL ONE (15:11)
[2020-06-19] MEDS ORDERED: NA CHLORIDE 0.9% 1,000 ML ONE (15:11)
[2020-06-19] MEDS ORDERED: FAMOTIDINE 20 MG/2 ML VIAL IV ONE (15:11)
[2020-06-19 15:28] LABS: Barbiturates NEGATIVE (NEGATIVE); Benzodiazepines NEGATIVE (NEGATIVE); Cocaine NEGATIVE (NEGATIVE); METHAMPHETAM NEGATIVE (NEGATIVE); Methadone NEGATIVE (NEGATIVE); Opiates NEGATIVE (NEGATIVE); Phencyclidine NEGATIVE (NEGATIVE); THC Cannibis NEGATIVE (NEGATIVE)
[2020-06-19 15:45] LABS: Urine Blood NEGATIVE (NEG); Urine Glucose NEGATIVE (NEG); Urine Protein NEGATIVE (NEG); Urine Specific Gravity 1.025 (1.005-1.030)
[2020-06-19 16:39] LABS: Absolute Lymphocytes (CBC) 1.2 K/uL (0.7-4.9); Basophils % 0.8 % (0-1.3); Hematocrit 35.1 % (36.0-45.0); Lymphocytes % 17.5 % (15.3-44.8); MPV 7.8 fL (7.6-11.3); RBC Red Blood Cell Count 4.19 M/uL (3.86-4.86)
[2020-06-19 17:06] LABS: ALT/SGPT 15 U/L (12-78); AST/SGOT 16 U/L (15-37); Albumin 3.9 g/dL (3.4-5.0); Alkaline Phosphatase 78 U/L (45-117); BUN Blood Urea Nitrogen 7 mg/dL (7-18); Bicarbonate 25 mmol/L (21-32); Bilirubin Direct < 0.1 mg/dL (0-0.2); Bilirubin Total 0.2 mg/dL (0.2-1.0); Glucose Level 110 mg/dL (74-106); Lipase 62 U/L (73-393); Potassium 3.7 mmol/L (3.5-5.1); Protein, Total 7.4 g/dL (6.4-8.2); Sodium Level 137 mmol/L (136-145)
--- NOTE | 2020-06-19 17:30 | ER ---
Nurse's Notes [facility] Name: Heather Hope Age: 29 yrs Sex: Female : 1990 Arrival Date: 06/19/2020 Time: 14:06 Bed 26 Private MD: Diagnosis: Nausea and vomiting Presentation: 06/19 14:23 Chief complaint: Patient states: i keep throwing up, for a bout a week now, i throw up tw2 everything i eat,all i have been doing is laying down, i have been dizzy, and some chills. Coronavirus screen: chills, fever, nausea, Client presents with at least one sign or symptom that may indicate coronavirus-19. Standard/surgical mask placed on the client. Provider contacted for isolation considerations. Ebola Screen: Patient denies travel to an Ebola-affected area in the 21 days before illness onset. Initial Sepsis Screen: Does the patient meet any 2 criteria? HR > 90 bpm. No. Patient's initial sepsis screen is negative. Does the patient have a suspected source of infection? No. Patient's initial sepsis screen is negative. Risk Assessment: Do you want to hurt yourself or someone else? Patient reports no desire to harm self or others. Onset of symptoms was June 19, 2020. 14:23 Method Of Arrival: Ambulatory tw2 14:23 Acuity: DARLYN 3 tw2 Triage Assessment: 14:25 General: Appears in no apparent distress. uncomfortable, Behavior is calm, cooperative, tw2 appropriate for age. Pain: Complains of pain in abdomen. GI: Reports lower abdominal pain, upper abdominal pain, intolerance of fluids, intolerance of food, nausea, vomiting. 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 - Social history:: Smoking status: . Screenin:00 Abuse screen: Denies threats or abuse. Denies injuries from another. Nutritional zb screening: No deficits noted. Tuberculosis screening: No symptoms or risk factors identified. Fall Risk None identified. Assessment: 14:30 General: Appears in no apparent distress. uncomfortable, Behavior is calm, cooperative, zb appropriate for age, quiet. Pain: Denies pain. Neuro: Level of Consciousness is awake, alert, obeys commands, Oriented to person, place, time, situation. Cardiovascular: Capillary refill < 3 seconds in bilateral fingers Patient's skin is warm and dry. Respiratory: Airway is patent Respiratory effort is even, unlabored, Respiratory pattern is regular, symmetrical. GI: Abdomen is round non-distended, Pt is actively vomiting clear fluid, Bowel sounds present X 4 quads. Abd is soft and non tender X 4 quads. Reports nausea, vomiting. : No signs and/or symptoms were reported regarding the genitourinary system. EENT: No signs and/or symptoms were reported regarding the EENT system. Derm: Skin is intact, is healthy with good turgor, has lesions on facial lesion present Skin is dry, Skin is normal, Skin temperature is warm. Musculoskeletal: Circulation, motion, and sensation intact. Capillary refill < 3 seconds, in bilateral fingers. Range of motion: intact in all extremities. 15:30 Reassessment: Patient appears in no apparent distress at this time. Patient and/or zb family updated on plan of care and expected duration. Pain level reassessed. Patient is alert, oriented x 3, equal unlabored respirations, skin warm/dry/pink. pt c/o nausea, notified pt once IV is place medication will be given. 16:30 Reassessment: Patient appears in no apparent distress at this time. Patient and/or zb family updated on plan of care and expected duration. Pain level reassessed. Patient is alert, oriented x 3, equal unlabored respirations, skin warm/dry/pink. pt currently resting, eyes clothes blanket provided. 17:11 Reassessment: Patient appears in no apparent distress at this time. Patient and/or zb family updated on plan of care and expected duration. Pain level reassessed. Patient is alert, oriented x 3, equal unlabored respirations, skin warm/dry/pink. pt asleep. lights dimmed. 18:11 Reassessment: Patient appears in no apparent distress at this time. Patient and/or zb family updated on plan of care and expected duration. Pain level reassessed. Patient is alert, oriented x 3, equal unlabored respirations, skin warm/dry/pink. pt notified of d/c. instruction given. Vital Signs: 14:23 BP 123 / 78; Pulse 93; Resp 18; Temp 97.1(TE); Pulse Ox 99% on R/A; Weight 76.2 kg (R); tw2 Height 5 ft. 3 in. (160.02 cm); Pain 8/10; 14:52 BP 125 / 85 RA Sitting (auto/lg); Pulse 93; Resp 20; Pulse Ox 100% on R/A; dh4 14:52 BP 115 / 84 RA Supine (auto/lg); Pulse 91; Resp 20; Pulse Ox 98% on R/A; dh4 14:52 BP 125 / 95 RA Standing (auto/lg); Pulse 96; Resp 20; Pulse Ox 100% on R/A; dh4 15:50 BP 129 / 95; Pulse 89; Resp 16; Pulse Ox 100% on R/A; zb 16:50 BP 106 / 83; Pulse 85; Resp 16; Pulse Ox 100% on R/A; zb 14:23 Body Mass Index 29.76 (76.20 kg, 160.02 cm) tw2 ED Course: 14:06 Patient arrived in ED. ag3 14:24 Triage completed. tw2 14:25 Arm band placed on. tw2 14:27 Steve Arreaga PA is PHCP. cp 14:27 Steve Lawrence MD is Attending Physician. cp 14:27 Rowena Baxter RN is Primary Nurse. zb 17:00 Patient has correct armband on for positive identification. Placed in gown. Bed in low zb position. Call light in reach. Pulse ox on. NIBP on. 17:00 Inserted saline lock: 20 gauge in left EJ, using aseptic technique. ,using aseptic zb technique. perfomed by CLAUDIA Turner Blood collected. 18:23 No provider procedures requiring assistance completed. zb 18:24 IV discontinued, intact, bleeding controlled, No redness/swelling at site. Pressure zb dressing applied. Administered Medications: 16:34 Drug: Zofran (Ondansetron) 4 mg Route: IVP; Site: left jugular; zb 18:22 Follow up: Response: No adverse reaction zb 16:34 Drug: Pepcid 20 mg Route: IVP; Site: left jugular; zb 18:22 Follow up: Response: No adverse reaction zb 16:34 Drug: NS 0.9% 1000 ml Route: IV; Rate: 1 bolus; Site: left jugular; zb 18:22 Follow up: Response: No adverse reaction; IV Status: Completed infusion; IV Intake: zb 1000ml Intake: 18:22 IV: 1000ml; Total: 1000ml. zb Outcome: 17:30 Discharge ordered by MD. cp 18:24 Discharged to home via wheelchair. zb 18:24 Condition: stable 18:24 Discharge instructions given to patient, Instructed on discharge instructions, follow up and referral plans. medication usage, Demonstrated understanding of instructions, follow-up care, medications, Prescriptions given X 2. 18:40 Patient left the ED. zb Signatures: Steve Arreaga PA PA cp Wise, Tara, RN RN tw2 Estee Mcdonald [facility] Neo Jeter 4 Rowena Baxter RN RN zb
--- NOTE | 2020-06-19 17:30 | EDPHYS ---
Physician Documentation [facility] Name: Heather Hope Age: 29 yrs Sex: Female : 1990 Arrival Date: 06/19/2020 Time: 14:06 Bed 26 Private MD: ED Physician Steve Lawrence HPI: 06/19 14:41 This 29 yrs old Female presents to ER via Ambulatory with complaints of cp Vomiting. 14:41 The patient presents to the emergency department with nausea, that is moderate, cp vomiting, that is intermittent. Onset: The symptoms/episode began/occurred 1 week(s) ago. Possible causes: unknown. 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 - Social history:: Smoking status: . ROS: 14:45 Constitutional: Positive for poor PO intake, Negative for body aches, chills, fever. cp 14:45 Eyes: Negative for injury, pain, redness, and discharge. cp 14:45 Cardiovascular: Negative for chest pain, palpitations. cp 14:45 Respiratory: Negative for cough, shortness of breath, wheezing. 14:45 Abdomen/GI: Positive for nausea and vomiting, Negative for abdominal pain, diarrhea, constipation, hematemesis. 14:45 Neuro: Negative for altered mental status, weakness. cp 14:45 All other systems are negative. Exam: 14:50 Constitutional: The patient appears in no acute distress, alert, awake, non-toxic, well cp developed, well nourished, obese. 14:50 Head/Face: Normocephalic, atraumatic. cp 14:50 Eyes: Periorbital structures: appear normal, Conjunctiva: normal, no exudate, no injection, Sclera: no appreciated abnormality, Lids and lashes: appear normal, bilaterally. 14:50 ENT: External ear(s): are unremarkable, Nose: is normal, Mouth: Lips: moist, Oral mucosa: moist, Posterior pharynx: Airway: no evidence of obstruction, patent. 14:50 Chest/axilla: Inspection: normal, Palpation: is normal, no crepitus, no tenderness. cp 14:50 Cardiovascular: Rate: normal, Rhythm: regular. 14:50 Respiratory: the patient does not display signs of respiratory distress, Respirations: normal, no use of accessory muscles, no retractions, labored breathing, is not present, Breath sounds: are clear throughout, no decreased breath sounds. 14:50 Abdomen/GI: Inspection: abdomen appears normal, Bowel sounds: active, all quadrants, Palpation: abdomen is soft and non-tender, in all quadrants, rebound tenderness, is not appreciated, voluntary guarding, is not appreciated, involuntary guarding, is not appreciated. Vital Signs: 14:23 BP 123 / 78; Pulse 93; Resp 18; Temp 97.1(TE); Pulse Ox 99% on R/A; Weight 76.2 kg (R); tw2 Height 5 ft. 3 in. (160.02 cm); Pain 8/10; 14:52 BP 125 / 85 RA Sitting (auto/lg); Pulse 93; Resp 20; Pulse Ox 100% on R/A; dh4 14:52 BP 115 / 84 RA Supine (auto/lg); Pulse 91; Resp 20; Pulse Ox 98% on R/A; dh4 14:52 BP 125 / 95 RA Standing (auto/lg); Pulse 96; Resp 20; Pulse Ox 100% on R/A; dh4 15:50 BP 129 / 95; Pulse 89; Resp 16; Pulse Ox 100% on R/A; zb 16:50 BP 106 / 83; Pulse 85; Resp 16; Pulse Ox 100% on R/A; zb 14:23 Body Mass Index 29.76 (76.20 kg, 160.02 cm) tw2 MDM: 14:29 Patient medically screened. cp 15:00 Differential diagnosis: gastritis, pancreatitis, viral gastroenteritis, gastroenteritis.cp 17:28 Data reviewed: vital signs, nurses notes, lab test result(s). ED course: VSS. Nausea cp markedly improved. Vomiting resolved. Patient observed sleeping in exam room. Will discharge to home for continued monitoring. 17:30 Counseling: I had a detailed discussion with the patient and/or guardian regarding: the cp historical points, exam findings, and any diagnostic results supporting the discharge/admit diagnosis, lab results, to return to the emergency department if symptoms worsen or persist or if there are any questions or concerns that arise at home. 17:30 Response to treatment: the patient's symptoms have markedly improved after treatment, cp VSS. Vomiting resolved. Patient observed resting comfortably in exam room, and as a result, I will discharge patient. 06/19 14:45 Order name: Basic Metabolic Panel cp 06/19 14:45 Order name: CBC with Diff cp 06/19 14:45 Order name: Hepatic Function cp 06/19 14:45 Order name: Lipase; Complete Time: 17:13 cp 06/19 14:45 Order name: Magnesium; Complete Time: 17:13 cp 06/19 14:45 Order name: UDS; Complete Time: 16:53 cp 06/19 14:46 Order name: Basic Metabolic Panel; Complete Time: 17:13 EDMS 06/19 17:13 Interpretation: Normal except: GLUC 110; CRE 0.47. cp 06/19 14:46 Order name: CBC with Automated Diff; Complete Time: 16:53 EDMS 06/19 16:53 Interpretation: Normal except: HGB 11.4; HCT 35.1; MANUEL% 75.2. cp 06/19 14:46 Order name: Liver (Hepatic) Function; Complete Time: 17:13 EDMS 06/19 15:11 Order name: Urine Dipstick--Ancillary (enter results); Complete Time: 16:53 bd 06/19 15:11 Order name: Urine --Ancillary (enter results); Complete Time: 16:53 bd 06/19 14:33 Order name: Orthostatics; Complete Time: 14:55 cp 06/19 14:45 Order name: IV Saline Lock; Complete Time: 16:35 cp 06/19 14:45 Order name: Labs collected and sent; Complete Time: 16:35 cp 06/19 14:45 Order name: Urine Dipstick-Ancillary (obtain specimen); Complete Time: 15:17 cp 06/19 14:45 Order name: Urine Test (obtain specimen); Complete Time: 15:17 cp 06/19 17:14 Order name: PO challenge; Complete Time: 17:40 cp Administered Medications: 16:34 Drug: Zofran (Ondansetron) 4 mg Route: IVP; Site: left jugular; zb 18:22 Follow up: Response: No adverse reaction zb 16:34 Drug: Pepcid 20 mg Route: IVP; Site: left jugular; zb 18:22 Follow up: Response: No adverse reaction zb 16:34 Drug: NS 0.9% 1000 ml Route: IV; Rate: 1 bolus; Site: left jugular; zb 18:22 Follow up: Response: No adverse reaction; IV Status: Completed infusion; IV Intake: zb 1000ml Disposition: 06/20 17:23 Co-signature as Attending Physician, Steve Lawrence MD I agree with the assessment and [facility] plan of care. Disposition: 06/19/20 17:30 Discharged to Home. Impression: Nausea and vomiting. - Condition is Stable. - Discharge Instructions: Nausea and Vomiting, Adult. - Prescriptions for Pepcid 20 mg Oral Tablet - take 1 tablet by ORAL route every 12 hours for 10 days; 20 tablet. Zofran 4 mg Oral Tablet - take 1 tablet by ORAL route every 12 hours As needed; 20 tablet. - Medication Reconciliation Form, Thank You Letter, Antibiotic Education, Prescription Opioid Use form. - Follow up: Private Physician; When: 1 - 2 days; Reason: Recheck today's complaints. - Problem is new. - Symptoms have improved. Signatures: Dispatcher [employer] EDSteve Russell MD MD cha Page, Corey, PA PA cp Wise, Tara, RN RN tw2 Rowena Baxter RN RN zb Corrections: (The following items were deleted from the chart) 06/19 18:40 17:30 06/19/2020 17:30 Discharged to Home. Impression: Nausea and vomiting. Condition zb is Stable. Forms are Medication Reconciliation Form, Thank You Letter, Antibiotic Education, Prescription Opioid Use. Follow up: Private Physician; When: 1 - 2 days; Reason: Recheck today's complaints. Problem is new. Symptoms have improved. cp
[2020-06-19 19:03] VITALS: O2SAT 100
[2020-06-19 19:05] VITALS: BP 106/83
[2020-06-19 19:09] VITALS: TEMP 97.8
== END 2020-06-19 18:40 | disposition home or self-care (01) ==
LOC: ER 14:05
DX: R11.2 Nausea with vomiting, unspecified (principal); F41.8 Other specified anxiety disorders
CPT/HCPCS: 96361; 85025; 80048; 36415; 83735; 81025; 80076; 80307 ×8; 81003; 83690; 96375; 96374; 99284; J7030; J2405

== ENCOUNTER 2020-09-08 17:41 | Emergency (ER) | payer OTHER ==
--- OUTSIDE RECORDS SUMMARY | 2020-09-08 17:46 | XMS REPORT | Continuity of Care Document ---
:1990 Author Organization [facility] t Address [address] [place] [address] Care Team Providers Name Role Phone Pavan Matos DO Attending Clinician Mayito Daily MD Attending Clinician LEO Attending Clinician Unavailable ROE Attending Clinician Unavailable JASS Attending Clinician Unavailable TOYA Attending Clinician Unavailable ANTHONY Attending Clinician Unavailable GAYE Attending Clinician Unavailable KRISSY Attending Clinician Unavailable LIANA Attending Clinician Unavailable BRANDO RODAS Attending Clinician Unavailable HOWARD Admitting Clinician Unavailable ALBERT Admitting Clinician Unavailable GAYE Admitting Clinician Unavailable Juliano DEJESUS Admitting Clinician Unavailable Payers Payer Name Policy Type Policy Number Effective Date Expiration Date S ourkate Problems Condition Condition Condition Status Onset Resolution Last Treating Co mments Source Name Details Category Date Date Treatment Clinician Date Hypokalemi Hypokalemi Disease Active 2016-[address] [facility] [place] Acute Acute Disease Active 2016-[address] [facility] encephalop encephalop 07-14 Dao kes - athy athy 00:00: Medical 00 [place] Seizure Seizure Disease Active 2016-[address] [facility] [address] disorder disorder 07-14 [facility] [place] Leukocytos Leukocytos Disease Active 2016-[address] [facility] is 07-14 [facility] 00 [place] Less than Less than Disease Active 2016-[address] [facility] 8 weeks 8 weeks 07-14 [facility] - gestation gestation 00:00: [facility]i [facility] of 00 Center Allergies, Adverse Reactions, Alerts Allergy Allergy Status Severity Reaction(s) Onset Inactive Treating Comm ents Source Name Type Date Date Clinician No Known DA Active U [facility] [place] 00:[facility]: d [place] No Known DA Active U 2016-06 [facility] 24 [facility] [facility] 00:00: [address] Social History Social Habit Start Date Stop Date Quantity Comments Source Sex Assigned At [facility] Alcohol intake 2017-05-14 2017-05-14 Current [facility] es - 00:00:00 00:00:00 non-drinker of Medical Ce nter alcohol (finding) Smoking Status Start Date Stop Date Source Never smoker [facility] Medications Ordered Filled Start Stop Current Ordering Indication Dosage Frequency Signature Comments Components Source Medication Medication Date Date Medication? Clinician (SIG) Name Name 2016-06 Yes 1{tbl} QD Take 1 [facility] [...] by Center mouth 2 (two) times daily. Procedures This patient has no known procedures. Encounters Start End Encounter Admission Attending Care Care Encounter Source Date/Time Date/Time Type Type Clinicians Facility Department ID 2020-09-04 2020-09-04 Patient SENDY Matos [id number] 00:00:00 00:00:00 Outreach Papo PRIMARY [id number] [facility] [id number] DAVE [id number] 2020-07-26 2020-07-26 [facility] Darvin Daily [id number] 09:42:44 23:59:00 Encounter Keiko [id number] [facility] [id number] 2020-06-25 2020-06-29 Inpatient LEO, [facility] [id number] [place] 00:00:00 00:00:00 MILA [address] 2020-06-25 2020-06-25 Outpatient CHIRAMSEYA, [facility] [id number] [place] 00:00:00 00:00:00 RAY [address] 2020-06-25 2020-06-25 Outpatient ASHKANA, [facility] [id number] [place] 00:00:00 00:00:00 RAY [address] 2020-06-22 2020-06-22 Outpatient JASS, MARILEE [facility] [id number] [place] 00:00:00 00:00:[address] 2020-06-18 2020-06-19 Emergency TOYA, [facility] 064 [id number] [place] 00:00:00 00:00:00 BEAU [address] 2020-05-15 2020-05-15 Outpatient JASS, MARILEE [facility] [id number] [place] 00:00:00 00:00:[address] 2020-05-02 2020-05-02 Emergency ANTHONY, [facility] 064 [id number] [place] 00:00:00 00:00:00 DANIEL [address] 2020-04-26 2020-04-26 Outpatient HUIZARISIS DotsonT [facility] [id number] [place] 00:00:00 00:00:[address] 2020-04-04 2020-04-07 Inpatient AHMED, [facility] 064 [id number] [place] 00:00:00 00:00:00 YAHYA [address] 2020-03-30 2020-03-30 Outpatient MARY HUIZAR [facility] [id number] [place] 00:00:00 00:00:[address] 2020-03-27 2020-03-27 Outpatient MARY HUIZAR [facility] [id number] [place] 00:00:00 00:00:[address] 2020-03-12 2020-03-15 Inpatient MARY HUIZAR [facility] [id number] [place] 00:00:00 00:00:[address] 2020-02-16 2020-02-16 Outpatient MARY HUIZAR [facility] [id number] [place] 00:00:00 00:00:[address] 2019-11-12 2019-11-15 Inpatient LIANA, [facility] [id number] [place] 00:00:00 00:00:00 REID [address] Results Test Description [...] = Expiration Dt) 06-14-2020 N Thyroid Stimulating [id number] 06:31:44 Test Item Value Reference Range Interpretation Comments TSH (test code = TSH) 3.830 mIU/mL 0.270-4.200 Lipid [id number] 06:24:40 Test Item Value Reference Range Interpretation Comments Cholesterol Total 152 mg/dL 0-200 RISK OF HE ART (test code = DISEASEPublishe d by Cholesterol Total) [employer] Laurel lyte Optimal Borderl ine [...] LDL/HDL Ratio=L DL Calc/HDL Chol Urine Drug [id number] 21:53:06 Test Item Value Reference Range Interpretation [...] if desired . Urinalysis with Culture, if [id number] 21:40:53 Test Item Value Reference Range Interpretation [...] Indicated Not Indicated Micro Ind?) Comprehensive Metabolic [id number] 21:34:15 Test Item Value Reference Range Interpretation [...] = A/G 1.6 ratio N Ratio) Alcohol [id number] 21:34:15 Test Item Value Reference Range Interpretation Comments Ethanol Level (test <0.00 g/dL 0.00-0.01 Intoxica vandana 0.080 g/dL code = Ethanol or more Level) Ethanol Inst (test <0 N code = Ethanol Inst) Comprehensive Metabolic [id number] 21:34:15 Test Item Value Reference Range Interpretation [...] National Kidney Foundation, http://nkdep.ni h.gov Comprehensive Metabolic [id number] 21:34:15 Test Item Value Reference Range Interpretation [...] Filtration Rate ) is an estimated va daoe, calculated from the patient's serum creatinine usin [...] ag e have not been validated by [facility] MDRD study and should be interpreted [...] ag e have not been validated by [facility] MDRD study and should be interpreted wit h caution. eGFR R esult Interpretation: eGFR > or = 60 is in the Normal RangeeGF R < 60 may mean kid shannan diseaseeGFR < 1 5 may mean kidney failure Rang es recommended by the National Kidney Foundation, http://nkdep.ni h.gov Complete Blood Count with [id number] 21:15:24 Test Item Value Reference Range Interpretation [...] code = IPF) 0 % N Automated [id number] 21:15:24 Test Item Value Reference Range Interpretation Comments Neutro Auto (test code = Neutro 54.3 % 36.0-70.0 Auto) Lymph Auto (test code = Lymph Auto) 32.3 % 12.0-44.0 Hardee Auto (test code = Hardee Auto) 11.1 % 0.0-11.0 H Eos, Auto (test code = Eos, Auto) 1.3 % 0.0-7.0 Basophil Auto (test code = Basophil 0.7 % 0.0-2.0 Auto) Neutro Absolute (test code = Neutro 6.2 x10 1.6-7.4 Absolute) Lymph Absolute (test code = Lymph 3.71 x10 .50-4.60 Absolute) Hardee Absolute (test code = Hardee 1.28 x10 .00-1.20 H Absolute) Eos Absolute (test code = Eos 0.15 x10 0.00-0.74 Absolute) Baso Absolute (test code = Baso 0.08 x10 0.00-0.21 Absolute) IG [id number] 21:15:24 Test Item Value Reference Range Interpretation Comments IG (test code = IG) 0.3 % 0.0-5.0 IG Abs (test code = IG Abs) 0 x10 N HCG Qualitative [id number] 20:45:17 Test Item Value Reference Range Interpretation [...] 72 hours. Lot # (test code = [id number] N Lot #) Expiration Dt (test 2020-12-12 N code = Expiration Dt) Neg Control (test Negative code = Neg Control) Pos Control (test Positive code = Pos Control) Internal QC (test Acceptable code = Internal QC) RPR [id number] 12:07:58 Test Item Value Reference Range Interpretation [...] = 04-14-2020 N Expiration Dt) Thyroid Stimulating [id number] 07:59:52 Test Item Value Reference Range Interpretation Comments TSH (test code = TSH) 0.717 mIU/mL 0.270-4.200 Lipid [id number] 07:52:46 Test Item Value Reference Range Interpretation Comments Cholesterol Total 141 mg/dL 0-200 RISK OF HE ART (test code = DISEASEPublishe d by Cholesterol Total) [employer] Laurel lyte Optimal Borderl ine [...] LDL/HDL Ratio=L DL Calc/HDL Chol Urine Drug [id number] 15:27:40 Test Item Value Reference Range Interpretation [...] matory test if desired . Comprehensive Metabolic [id number] 15:15:20 Test Item Value Reference Range Interpretation [...] A/G 1.9 ratio N Ratio) Comprehensive Metabolic [id number] 15:15:20 Test Item Value Reference Range Interpretation [...] the National Kidney Foundation, http://nkdep.ni h.gov Alcohol [id number] 15:15:20 Test Item Value Reference Range Interpretation Comments Ethanol Level (test <0.00 g/dL 0.00-0.01 Intoxica vandana 0.080 g/dL code = Ethanol or more Level) Ethanol Inst (test <0 N code = Ethanol Inst) Comprehensive Metabolic [id number] 15:15:20 Test Item Value Reference Range Interpretation [...] the National Kidney Foundation, http://nkdep.ni h.gov Urinalysis [id number] 15:11:20 Test Item Value Reference Range Interpretation Comments UA WBC (test code = UA WBC) 6-10 0-5 A UA RBC (test code = UA RBC) 0-5 0-5 UA Bacteria (test code = UA Moderate A Bacteria) UA Squam Epithelial (test code = UA TNTC A Squam Epithelial) UA Mucous (test code = UA Mucous) Few A Urinalysis with Microscopic if [id number] 14:42:58 Test Item Value Reference Range Interpretation [...] GL_SJM_UA_MICRO _IN D Complete Blood Count with [id number] 14:37:26 Test Item Value Reference Range Interpretation [...] code = IPF) 0 % N Automated [id number] 14:37:26 Test Item Value Reference Range Interpretation Comments Neutro Auto (test code = Neutro 65.8 % 36.0-70.0 Auto) Lymph Auto (test code = Lymph Auto) 25.5 % 12.0-44.0 Hardee Auto (test code = Hardee Auto) 7.3 % 0.0-11.0 Eos, Auto (test code = Eos, Auto) 0.7 % 0.0-7.0 Basophil Auto (test code = Basophil 0.5 % 0.0-2.0 Auto) Neutro Absolute (test code = Neutro 6.0 x10 1.6-7.4 Absolute) Lymph Absolute (test code = Lymph 2.34 x10 .50-4.60 Absolute) Hardee Absolute (test code = Hardee .67 x10 .00-1.20 Absolute) Eos Absolute (test code = Eos 0.06 x10 0.00-0.74 Absolute) Baso Absolute (test code = Baso 0.05 x10 0.00-0.21 Absolute) IG [id number] 14:37:26 Test Item Value Reference Range Interpretation Comments IG (test code = IG) 0.2 % 0.0-5.0 IG Abs (test code = IG Abs) 0 x10 N HCG Qualitative [id number] 14:34:08 Test Item Value Reference Range Interpretation [...] 72 hours. Lot # (test code = [id number] N Lot #) Expiration Dt (test 2020-03-14 N code = Expiration Dt) Neg Control (test Negative code = Neg Control) Pos Control (test Positive code = Pos Control) Internal QC (test Acceptable code = Internal QC) DRUGS OF ABUSE SCREEN [id number] 17:11:00 Test Item Value Reference Range Interpretation [...] = [place]) concentrati on: 300 ng/mL URINALYSIS [id number] 17:08:00 Test Item Value Reference Range Interpretation [...] (test code = MOD NONE BACU) URINALYSIS [id number] 17:00:00 Test Item Value Reference Range Interpretation [...] (test 250 Gilbert/micL NEGATIVE A code = RIVRE) Gilbert/micL UA PH DIPSTICK (test code 6.0 [...] (test code = NONE BACU) HCG SERUM [id number] 16:52:00 Test Item Value Reference Range Interpretation Comments HCG SERUM QUAL (test code = HCGQL) NEGATIVE NEGATIVE - CT HEAD/BRAIN W/O [id number] 16:51:00 FAX: Theresa Fields MD [place]: St: REG Name: SAHRA NETTLES [facility] : 1990 Age/S: 28/F [address] [facility] Unit: [id number] Loc: [place], [place]: [place] [id number] Acct: [id number] Dis Date: Status: REG ER PHONE #: [phone] Exam Date: 02/23/2019 1642 FAX #: [phone] Reason: SEIZURE EXAMS: CPT CODE: [id number] CT HEAD/BRAIN W/O CONT 80052 Dictation location: U19. CT HEAD WITHOUT CONTRAST. [...] MD Technologist: SAHRA DICKSON Trnscrd Dt/Tm: 02/23/2019 (9161) AngeliqueSP17 Orig Print D/T: S: 02/23/2019 (8684 PAGE 1 Signed ReportBASIC METABOLIC [id number] 16:31:00 Test Item Value Reference Range Interpretation [...] CA) 8.8 mg/dl 8.0-10.5 N BASIC METABOLIC [id number] 16:26:00 Test Item Value Reference Range Interpretation [...] code = CA) mg/dl 8.0-10.5 CBC W/AUTO [id number] 16:15:00 Test Item Value Reference Range Interpretation [...] 3-60 N code = VLDL) RAPID PLASMA [id number] 10:31:00 Test Item Value Reference Range Interpretation Comments RAPID PLASMA REAGIN (test code = Nonreactive Nonreactive RPR) GLYCOSYLATED HEMOGLOBIN (HA1C)2018-12-07 10:05:00 Test Item Value Reference Range Interpretation Comments GLYCOSYLATED HEMOGLOBIN (HA1C) 5.8 % TOT HB 4.5-6.2 N (test code = GLYHGB) [id number] 15:31:00 Test Item Value Reference Range Interpretation Comments ACETAMINOPHEN (test < 1 MCG/ML 10-30 L Acetamin ophen is code = ACET) possibly toxic at levels of: 1. m ore than 150 MCG/ML 4 hours post kaylin stion. 2. more than 5 0 MCG/ML 12 hours post ingestion. [id number] 15:31:00 Test Item Value Reference Range Interpretation Comments SALICYLATE (test code = < 3 MG/DL 0-20 N Refe rence Range: BOSSMAN) Analgesic...... ...... ...... < 10 mg /dl Therapeutic.... ...... ...... 15-20 mg /dl Mild Toxicity....... ...... . > 30 mg/dl Severe Toxicity....... ..... > 60 mg/dl UA RFLX [id number] 14:18:00 Test Item Value Reference Range Interpretation [...] Clean Catch (test code = UASPEC) UA [id number] 14:18:00 Test Item Value Reference Range Interpretation Comments UA WBC (test code = WBCU) < 10 #/hpf <10 UA RBC (test code = RBCU) 0-2 #/hpf NONE SEEN A UA BACTERIA (test code = BACU) RARE #/hpf NONE SEEN UA SQUAMOUS CELLS (test code = 0 - 20 #/lpf <100 SQU) UA MUCUS (test code = MUCU) 1+ #/lpf NONE SEEN BASIC METABOLIC [id number] 14:16:00 Test Item Value Reference Range Interpretation [...] 9.4 MG/DL 8.7-10.5 N CA) HEPATIC FUNCTION [id number] 14:16:00 Test Item Value Reference Range Interpretation [...] 50-136 N TOTAL (test code = ALKP) [id number] 14:16:00 Test Item Value Reference Range Interpretation Comments CK (test code = CKT) 87 Units/L 26-192 N [id number] 14:16:00 Test Item Value Reference Range Interpretation Comments ALCOHOL (test code = < 3 MG/DL 0-10 N 0 - 10: Should be ALC) interpreted as NEGATIVE. 11 - 50: None to mild euphoria. 51 - 100: Mild influence on vision and dark adapta tion. > 80: Legal intoxication; D epression of JOB PLACEMENT COUNSELOR; Increasing degr ee of poisoning. > 400: Fatalities repo rted. Results are for medical purposes only a nd not forlegal or emp loyment evaluative purp oses. BASIC METABOLIC [id number] 14:09:00 Test Item Value Reference Range Interpretation [...] 9.4 MG/DL 8.7-10.5 N CA) HEPATIC FUNCTION [id number] 14:09:00 Test Item Value Reference Range Interpretation [...] TOTAL (test Units/L 50-136 code = ALKP) [id number] 14:09:00 Test Item Value Reference Range Interpretation Comments CK (test code = CKT) Units/L 26-192 [id number] 14:09:00 Test Item Value Reference Range Interpretation Comments ALCOHOL (test code = ALC) MG/DL 0-10 LACTIC ACID [id number] 13:50:00 Test Item Value Reference Range Interpretation Comments LACTIC ACID POC 0.97 MMOL/L 0.90-1.70 N Performed by certified (test code = LACTP) disposal operator at [facility] [id number] 13:48:00 Test Item Value Reference Range Interpretation Comments GLUBED (test code = 88 MG/DL 65-99 N Performe d by certified GLUBED) disposal operator at [facility] DRUG OF ABUSE SCREEN [id number] 13:43:00 Test Item Value Reference Interpretation Comments [...] by layton rader methods (i.e., GC/MS) at [facility]. Results of scre en may not be usedin crimi nal justice, job performance or professionalcre dential review, or infa nt custody issues. Negativ e [place] Level ng/ml ------- ----- Cocaine 300 Methamp hetamine (Ecstacy) 500 Cannabinoids (THC) 50 Amphetamine 1000 Barbiturate s 200 Benzodia zepines 200 Opiat es 300 Ph encyclidine (PCP) 25 UR HCG [id number] 13:39:00 Test Item Value Reference Range Interpretation [...] using aquantitative h CG assay. UA RFLX [id number] 13:38:00 Test Item Value Reference Range Interpretation [...] Clean Catch (test code = UASPEC) UA [id number] 13:38:00 Test Item Value Reference Range Interpretation Comments UA WBC (test code = WBCU) #/hpf <10 UA RBC (test code = RBCU) #/hpf NONE SEEN UA SQUAMOUS CELLS (test code = SQU) #/lpf <100 UA RFLX [id number] 13:38:00 Test Item Value Reference Range Interpretation [...] Clean Catch (test code = UASPEC) UA [id number] 13:38:00 Test Item Value Reference Range Interpretation Comments UA WBC (test code = WBCU) #/hpf <10 UA RBC (test code = RBCU) #/hpf NONE SEEN UA SQUAMOUS CELLS (test code = SQU) #/lpf <100 CBC W/AUTO [id number] 13:26:00 Test Item Value Reference Range Interpretation [...] = BA#) 0.05 x10 3/uL 0.0-0.2 N [id number] 19:07:00 Test Item Value Reference Interpretation Comments Range LEVETIRACETAM 28.7 ug/mL 10.0-40.0 This test was developed and (test code = its performance LEVTAM) characteristics determined by [facility]. It has not been cleared orappro froylan by the Food and Drug Administration. Performed At: [facility] [address] [facility] [place], [place] [id number] ra Larissa MENDOZA Ph:[phone] BASIC METABOLIC [id number] 04:58:00 Test Item Value Reference Range Interpretation [...] code = 8.9 MG/DL 8.7-10.5 N CA) [id number] 04:58:00 Test Item Value Reference Range Interpretation Comments MAGNESIUM (test code = MAG) 1.9 MG/DL 1.8-2.4 N CBC W/AUTO [id number] 04:08:00 Test Item Value Reference Range Interpretation [...] 0.0-0.2 N NRBC#) - MRI BRAIN W/O [id number] 13:51:00 Patient Name: SAHRA NETTLES Unit No: [id number] EXAMS: CPT CODE: [id number] MRI BRAIN W/O CONTRAST 68924 Reason: sz INDICATION: Seizure COMPARISON: CT brain, [...] MD Technologist: Andre Self MRI Trscrpt Dt/ (2017)tDAINA.DW6 Orig Print D/T: S: 09/17/2018 (8412) [facility] CntNAME: SAHRA NETTLES [address] PHYS: [place] [address] : 1990 AGE: 27 SEX: F LOC: D.D313 1 PHONE #: [phone] EXAM DATE: 09/17/2018 STATUS: ADM IN FAX #: RAD NO: DC Dt: PAGE 1 Signed [id number] 07:25:00 Test Item Value Reference Range Interpretation Comments PROLACTIN (test code = 24.6 ng/mL 4.8-23.3 H Perfo rmed At: HD PROLAC) [facility] [address] [id number] Sb Man MD Ph:[phone] UA RFLX MICROSCOPIC [id number] 19:02:00 Test Item Value Reference Range Interpretation [...] UACULT) URINE SOURCE: Clean CatchUA RFLX MICROSCOPIC [id number] 18:56:00 Test Item Value Reference Range Interpretation [...] (test code = UACULT) URINE SOURCE: Clean [id number] 15:56:00 Test Item Value Reference Range Interpretation Comments CK (test code = CKT) 34 Units/L 26-192 N BASIC METABOLIC [id number] 12:57:00 Test Item Value Reference Range Interpretation [...] code = 8.6 MG/DL 8.7-10.5 L CA) [id number] 12:57:00 Test Item Value Reference Range Interpretation Comments CK (test code = CKT) 32 Units/L 26-192 N CBC W/AUTO [id number] 12:33:00 Test Item Value Reference Range Interpretation [...] 3/uL 0.0-0.2 N NRBC#) TOTAL IRON BINDING [id number] 05:50:00 Test Item Value Reference Range Interpretation Comments SERUM IRON (test code = IRON) 17 MCG/DL 50-170 L TOTAL IRON BINDING CAPACITY (test 363 MCG/DL 280-400 N code = TIBC) IRON SATURATION (test code = 5 % 15-50 L FESAT) [id number] 05:50:00 Test Item Value Reference Range Interpretation Comments FERRITIN (test code = LULI) 11 NG/ML 3-105 N HEPATIC FUNCTION [id number] 05:32:00 Test Item Value Reference Range Interpretation [...] code = ALKP) - CT HEAD/BRAIN W/O [id number] 20:19:00 Patient Name: SAHRA NETTLES Unit No: [id number] EXAMS: CPT CODE: [id number] CT HEAD/BRAIN W/O CONT 76415 Reason: seizure TECHNIQUE: Contiguous 5 mm images [...] Print D/T: S: 09/14/2018 (2021) CTDI: DLP: [facility] NAME[facility] PHYS: [place] [address] : 1990 AGE: 27 SEX: F LOC: D.NER PHONE#: [phone] EXAM DATE: 09/14/2018 STATUS: REG ER FAX #: RAD NO: DC Dt: PAGE 1 Signed Report- XR CHEST 1 [id number] 20:18:00 Patient Name: SAHRA NETTLES [facility] Unit No: [id number] EXAMS: CPT CODE: [id number] XR CHEST 1 V 52992 Reason: screen for pneumonia FINDINGS: Single view ofthe chest shows normal heart size and pulmonary vasculature. The lungs are clear bilaterally. There is no focal infiltrate, pleural effusion or pneumothorax. IMPRESSION: No a cute cardiopulmonary findings at 2018 Reported and signed by: Lashell Jimenez MD CC: Keanu Vázquez MD; Cristiane Heath Technologist: Edel Cade CT Trscrpt Dt/ (2017)Tristan Orig PrintD/T: S: 09/14/2018 (2020) [facility] NAME: SAHRA NETTLES [facility] PHYS: [place] [address] : 1990 AGE: 27 SEX: F LOC: D.NER PHONE #: [phone] EXAM DATE: STATUS: REG ER FAX #: RAD NO: DC Dt: PAGE 1 Signed ReportHCG SERUM [id number] 20:04:00 Test Item Value Reference Range Interpretation [...] using aquantitative h CG assay. BASIC METABOLIC [id number] 19:51:00 Test Item Value Reference Range Interpretation [...] 9.3 MG/DL 8.7-10.5 N CA) CBC W/AUTO [id number] 19:46:00 Test Item Value Reference Range Interpretation [...] BA#) 0.05 x10 3/uL 0.0-0.2 N BLOOD [id number] 10:00:00 Test Item Value Reference Range Interpretation Comments CULTURE (BEAKER) (test No growth in 5 days code = 1095) HCG, QUANTITATIVE, [id number] 15:37:00 Test Item Value Reference Range Interpretation Comments GONADOTROPIN, CHORIONIC (HCG) 14983 mIU/mL 0-10 H QUANT (BEAKER) (test code = 649) Non- Females: <10 mIU/mL Females: Gestation Age Reference Range(mIU/mL) 0.2-1 Week 5-50 1-2 Weeks 50-500 2-3 Weeks 100-5,000 3-4Weeks 500-10,000 4-5 Weeks 1,000-50,000 5-6 Weeks 10,000-100,000 6-8 Weeks 15,000-200,000 2-3 Months 10,000-100,000COMPREHENSIVE METABOLIC [id number] 15:10:00 Test Item Value Reference Range Interpretation [...] PATIEN TS. CBC W/PLT COUNT & AUTO [id number] 14:53:00 Test Item Value Reference Range Interpretation [...] (test code = 2801) U/S, , FIRST [id number] 07:52:00Reason for exam:-> Reason for exam:->please include [...] 1 day. An embryonic pole is evident. [place]-rump length measures 0.63 cm, correlating with estimated [...] of 7 weeks 3 days. Signed: Lashell Garridoort Verified Date/Time: 05/17/2017 07:52:37 Reading Location: [address] Consult Reading Room PREGNANCY SCREEN, [id number] 05:28:00 Test Item Value Reference Range Interpretation Comments TEST URINE (BEAKER) (test Positive code = 583) MR, BRAIN, WITHOUT [id number] 18:54:00Reason for exam:->Stroke evaluationFINAL REPORT MRI brain [...] Parra Verified Date/Time: 05/15/2017 18:54:11 Reading Location: [facility] Radiology Reading Room EEG AWAKE AND [id number] 12:08:00Reason for exam:->? nonconvulsive statusDATE OF TEST: 05/15/2017DATE OF REPORT 05/15/2017 ACC: [id number] EE Start time: 1034 Stop time: 1054 ICD-10: R56.9CPT Code: 22834QXDDMRD: 26 y/o woman with epilepsy found down [...] recordings.Marika Smith M.D.Neurophysiology FellowSwathi Harper M.D.Neurophysiology Attending [id number] 04:27:00 Test Item Value Reference Range Interpretation Comments PROCALCITONIN (BEAKER) (test code 0.17 ng/mL <0.05 H = 3036) SEPSIS RISK (ng/mL)Low: 0.05-0.50Intermediate: 0.51-2.00High: >=2.01BASIC METABOLIC [id number] 03:15:00 Test Item Value Reference Range Interpretation [...] (test 200 U/L 29-200 code = 380) [id number] 03:15:00 Test Item Value Reference Range Interpretation Comments PHOSPHORUS (BEAKER) (test code = 3.1 mg/dL 2.3-4.7 604) [id number] 03:15:00 Test Item Value Reference Range Interpretation Comments MAGNESIUM (BEAKER) (test code = 1.9 mg/dL 1.6-2.6 627) LACTIC ACID, VENOUS, WHOLE [id number] 03:09:00 Test Item Value Reference Range Interpretation Comments LACTATE BLOOD VENOUS (2) (BEAKER) 0.6 mmol/L 0.5-2.2 (test code = 2872) Effective 10/17/2015: Units/Reference Range ChangeNew: 0.5-2.2 mmol/L Previous: 5-20 mg/dLPROTHROMBIN [id number] 03:07:00 Test Item Value Reference Range Interpretation [...] = 2801) RAD, CHEST, 1 VIEW, NON [id number] 01:06:00Reason for exam:->possible infectionShould this be performed [...] MDReport Verified Date/Time: 05/15/2017 01:06:06 Reading Location: [address] Reading Room
--- NOTE | 2020-09-08 18:32 | RAD REPORT ---
EXAM DESCRIPTION: CT - Head Brain Wo Cont - 09/08/2020 6:21 pm CLINICAL HISTORY: Seizure COMPARISON: June 2020 TECHNIQUE: Computed axial tomography of the head was obtained. IV contrast was not requested. All CT scans are performed using dose optimization technique as appropriate and may include automated exposure control or mA/KV adjustment according to patient size. FINDINGS: An intracranial bleed is not seen . The ventricles are normal in caliber. No extra-axial fluid collection is noted. . Fluid within the sinuses/ mastoids is not seen. IMPRESSION: No acute intracranial abnormality is seen. If patient's symptoms persist MRI of the bra in would be recommended.
[2020-09-08 19:51] LABS: Absolute Lymphocytes (CBC) 1.8 K/uL (0.7-4.9); Basophils % 0.7 % (0-1.3); Hematocrit 34.4 % (36.0-45.0); Lymphocytes % 22.5 % (15.3-44.8); MPV 8.4 fL (7.6-11.3); RBC Red Blood Cell Count 4.33 M/uL (3.86-4.86)
[2020-09-08 19:59] LABS: Protime INR 1.02
[2020-09-08 20:02] LABS: Barbiturates NEGATIVE (NEGATIVE); Benzodiazepines POSITIVE (NEGATIVE); Cocaine NEGATIVE (NEGATIVE); METHAMPHETAM NEGATIVE (NEGATIVE); Methadone NEGATIVE (NEGATIVE); Opiates NEGATIVE (NEGATIVE); Phencyclidine NEGATIVE (NEGATIVE); THC Cannibis NEGATIVE (NEGATIVE)
[2020-09-08 20:06] LABS: ALT/SGPT 21 U/L (12-78); AST/SGOT 12 U/L (15-37); Albumin 3.8 g/dL (3.4-5.0); Alkaline Phosphatase 77 U/L (45-117); BUN Blood Urea Nitrogen 8 mg/dL (7-18); Bicarbonate 25 mmol/L (21-32); Bilirubin Direct < 0.1 mg/dL (0-0.2); Bilirubin Total 0.2 mg/dL (0.2-1.0); Glucose Level 94 mg/dL (74-106); Potassium 3.6 mmol/L (3.5-5.1); Protein, Total 7.3 g/dL (6.4-8.2); Sodium Level 138 mmol/L (136-145)
[2020-09-08 20:57] LABS: Urine Blood NEGATIVE (Negative); Urine Glucose NEGATIVE (Negative); Urine Protein NEGATIVE (NEG); Urine Specific Gravity 1.025 (1.005-1.030); Urine Specific Gravity/Preg 1.025 (1.005-1.030)
--- NOTE | 2020-09-08 21:02 | EDPHYS ---
Physician Documentation [facility] Name: Heather Hope Age: 29 yrs Sex: Female : 1990 Arrival Date: 09/08/2020 Time: 17:44 Bed 7 Private MD: ED Physician Moi Avalos HPI: 09/08 18:07 This 29 yrs old Female presents to ER via EMS with complaints of Seizure. pm1 18:07 The patient presents with a history of multiple seizures, the episode(s) was witnessed, pm1 by EMS personnel. Character of seizure(s): Motor activity: generalized. Seizure onset: just prior to arrival. Seizure Hx: Seizure medications: clonazepam. Associated injury: The patient did not suffer any apparent associated injury. EMS care: ammonia packet, alert and oriented after used by EMS. The patient has experienced similar episodes in the past, multiple times. Report obtained from EMS. Patient not cooperative. Patient called 911 that she was having a seizure. On arrival by EMS, the patient opened the door and then fell down and had a seizure. Patient was administered ammonia packet in route and she was alert and oriented x 4. At arrival to ER bay patient became unresponsive . Historical: - Allergies: 17:50 No Known Drug Allergies; hb - PMHx: 17:50 Anemia; Depression; Seizures; hb - PSHx: 17:50 None; hb - Immunization history:: Adult Immunizations unknown. - Social history:: Smoking status: unknown. ROS: 20:45 Unable to obtain ROS due to patient being uncooperative. pm1 Exam: 18:07 Constitutional: This is a well developed, well nourished patient who is awake, alert, pm1 and in no acute distress. 18:07 Back: No spinal tenderness. No costovertebral tenderness. Full range of motion. Skin: Warm, dry with normal turgor. Normal color with no rashes, no lesions, and no evidence of cellulitis. MS/ Extremity: Pulses equal, no cyanosis. Neurovascular intact. Full, normal range of motion. 18:07 Eyes: Periorbital structures: appear normal, Pupils: no acute changes, normal size, normal reaction to light, Conjunctiva: normal, Lids and lashes: appear normal. 18:07 Cardiovascular: Exam negative for acute changes, Rate: normal, Rhythm: regular, Pulses: no pulse deficits are appreciated, Heart sounds: normal, normal S1and S2. 18:07 Respiratory: Exam negative for acute changes, respiratory distress, shortness of breath. 18:07 Abdomen/GI: Palpation: abdomen is soft and non-tender, in all quadrants. 18:07 Neuro: Patient fights off sternal rubbing and then returns to being uncooperative and sleeping. Patient fights off [place] Sal[place] Test to each eye and then returns to being uncooperative and sleeping. Vital Signs: 17:45 BP 131 / 86; Pulse 105; Resp 16; Temp 97.2; Pulse Ox 100% on R/A; Pain 0/10; hb 19:40 BP 124 / 85; Pulse 72; Resp 18; Pulse Ox 98% on R/A; lp1 20:15 BP 126 / 86; Pulse 72; Resp 16; Pulse Ox 97% on R/A; lp1 21:15 BP 127 / 80; Pulse 76; Resp 18; Pulse Ox 97% on R/A; lp1 17:45 Maria Victoria (FACES) hb Thomas Coma Score: 19:40 Eye Response: spontaneous(4). Verbal Response: confused(4). Motor Response: obeys lp1 commands(6). Total: 14. MDM: 17:51 Patient medically screened. pm1 20:46 Data reviewed: vital signs. Data interpreted: Pulse oximetry: on room air is 97 %. pm1 Interpretation: normal. 21:01 Counseling: I had a detailed discussion with the patient and/or guardian regarding: the pm1 historical points, exam findings, and any diagnostic results supporting the discharge/admit diagnosis, lab results, radiology results, the need for outpatient follow up, for definitive care, a neurologist, to return to the emergency department if symptoms worsen or persist or if there are any questions or concerns that arise at home. 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 Based on examination, patient's appears to be having pseudoseizures. Patient without any further seizure episodes in the ER and she is currently AAOx4. Patient is only prescribed by her neurologist Dr. Henley clonazepam. Instructed her to follow up with Dr. Henley for further evaluation and treatment. 09/08 17:52 Order name: Acetaminophen pm1 09/08 17:52 Order name: Basic Metabolic Panel pm09/08 17:52 Order name: CBC with Diff pm09/08 17:52 Order name: ETOH Level 09/08 17:52 Order name: Hepatic Function pm09/08 17:52 Order name: PT-INR 09/08 17:52 Order name: Ptt, Activated pm09/08 17:52 Order name: Salicylate; Complete Time: 20:33 pm09/08 17:52 Order name: Urine Drug Screen; Complete Time: 20:09 pm09/08 17:52 Order name: Acetaminophen Level; Complete Time: 20:21 EDMS 09/08 17:52 Order name: Basic Metabolic Panel; Complete Time: 20:21 EDMS 09/08 17:52 Order name: CBC with Automated Diff ED09/08 17:53 Order name: Alcohol Serum/Plasma; Complete Time: 20:09 EDMS 09/08 17:53 Order name: Liver (Hepatic) Function; Complete Time: 20:21 EDMS 09/08 17:52 Order name: Urine Test (obtain specimen); Complete Time: 19:58 pm09/08 17:52 Order name: EKG; Complete Time: 17:53 pm09/08 17:52 Order name: EKG - Nurse/Tech; Complete Time: 18:08 pm09/08 17:52 Order name: IV Saline Lock; Complete Time: 19:58 pm09/08 17:52 Order name: Labs collected and sent; Complete Time: 19:59 pm09/08 17:52 Order name: Urine Dipstick-Ancillary (obtain specimen); Complete Time: 19:59 pm09/08 17:52 Order name: CT Head Brain wo Cont; Complete Time: 18:39 pm09/08 17:53 Order name: Protime (+INR); Complete Time: 20:46 EDMS 09/08 17:53 Order name: PTT, Activated Partial Thromb; Complete Time: 20:46 EDMS 09/08 19:47 Order name: Urine Dipstick--Ancillary (enter results); Complete Time: 21:01 2 09/08 19:47 Order name: Urine --Ancillary (enter results); Complete Time: 21:01 [facility] 09/08 21:03 Order name: CBC Smear Scan EDMS Administered Medications: No medications were administered Disposition: 09/09 07:07 Co-signature as Attending Physician, Moi Avalos MD. rn Disposition: 09/08/20 21:02 Discharged to Home. Impression: Epilepsy and recurrent seizures. - Condition is Stable. - Discharge Instructions: Seizure, Adult, [id number]. - Medication Reconciliation Form, Thank You Letter, Antibiotic Education, Prescription Opioid Use form. - Follow up: Emergency Department; When: As needed; Reason: Worsening of condition. Follow up: Private Physician; When: 2 - 3 days; Reason: Recheck today's complaints, Continuance of care, Re-evaluation by your physician. - Problem is new. - Symptoms have improved. Signatures: Dispatcher [employer] EDMS Moi Avalos MD MD rn Pena, Laura RN RN lp1 Jarvis Greer, HOSPICE CARE TRANSITIONS COORDINATOR HOSPICE CARE TRANSITIONS COORDINATOR pm1 Kiley Nixon RN RN Corrections: (The following items were deleted from the chart) 09/08 21:32 21:02 09/08/2020 21:02 Discharged to Home. Impression: Epilepsy and recurrent seizures. lp1 Condition is Stable. Forms are Medication Reconciliation Form, Thank You Letter, Antibiotic Education, Prescription Opioid Use. Follow up: Emergency Department; When: As needed; Reason: Worsening of condition. Follow up: Private Physician; When: 2 - 3 days; Reason: Recheck today's complaints, Continuance of care, Re-evaluation by your physician. Problem is new. Symptoms have improved. pm1
--- NOTE | 2020-09-08 21:02 | ER ---
Nurse's Notes [facility] Name: Heather Hope Age: 29 yrs Sex: Female : 1990 Arrival Date: 09/08/2020 Time: 17:44 Bed 7 Private MD: Diagnosis: Epilepsy and recurrent seizures Presentation: 09/08 17:45 Chief complaint: EMS states: Called 911 and stated she was having a seizure, when EMS hb arrived she answered the door then dropped to the floor and became responsive to pain only. In route to ED, she woke after ammonia inhalant and was instantly AOx4 and remained that way until they opened the ambulance door then became responsive to pain only. Coronavirus screen: At this time, the client does not indicate any symptoms associated with coronavirus-19. Ebola Screen: No symptoms or risks identified at this time. Initial Sepsis Screen: Does the patient meet any 2 criteria? No. Patient's initial sepsis screen is negative. Does the patient have a suspected source of infection? No. Patient's initial sepsis screen is negative. Risk Assessment: Do you want to hurt yourself or someone else? Patient reports no desire to harm self or others. Onset of symptoms was September 08, 2020. 17:45 Method Of Arrival: EMS: [facility] hb 17:45 Acuity: DARLYN 3 hb Historical: - Allergies: 17:50 No Known Drug Allergies; hb - PMHx: 17:50 Anemia; Depression; Seizures; hb - PSHx: 17:50 None; hb - Immunization history:: Adult Immunizations unknown. - Social history:: Smoking status: unknown. Screenin:21 Abuse screen: Denies threats or abuse. Denies injuries from another. Nutritional hb screening: No deficits noted. Tuberculosis screening: No symptoms or risk factors identified. Fall Risk Total Green Fall Scale indicates High Risk Score (45 or more points). Fall prevention measures have been instituted. Side Rails Up X 2 Frequent Obs/Assessments Occuring As available patient and family educated on Fall Prevention Program and Strategies. Assessment: 18:00 General: Appears in no apparent distress. Behavior is flat. Pain: Unable to use pain hb scale. FLACC scale score is 0 out of 10. Neuro: Level of Consciousness is obtunded. Cardiovascular: Patient's skin is warm and dry. Rhythm is regular. Respiratory: Respiratory effort is even, unlabored, Respiratory pattern is regular, symmetrical. GI: No signs and/or symptoms were reported involving the gastrointestinal system. : No signs and/or symptoms were reported regarding the genitourinary system. EENT: No signs and/or symptoms were reported regarding the EENT system. Derm: Skin is pink, warm \T\ dry. Musculoskeletal: No signs and/or symptoms reported regarding the musculoskeletal system. 18:25 Reassessment: Unable to establish PIV access. Inside lab called for blood draw. BPO SPECIALIST yon Conley notified. 18:26 Reassessment: Pt to CT. hb 18:37 Reassessment: Pt returned from CT. hb 18:43 Reassessment: Inside lab at bedside for lab draw. hb 19:40 Reassessment: Patient awake, reoriented to time and place; Asking if she will be lp1 transferred, reports she has been having seizures for the past 2 days. Nurse and patient spoke with mother on phone, aware she is here in ED. 20:45 Reassessment: Provider at bedside to discuss results with patient and plan for lp1 discharge, patient demonstrates understanding for follow up care with neurologist. 20:50 Reassessment: Patient calling for ride home. lp1 21:25 Reassessment: Patient noted to have steady gait upon discharge, dressed self lp1 independently, place in WC to get to ride outside of ED. Vital Signs: 17:45 BP 131 / 86; Pulse 105; Resp 16; Temp 97.2; Pulse Ox 100% on R/A; Pain 0/10; hb 19:40 BP 124 / 85; Pulse 72; Resp 18; Pulse Ox 98% on R/A; lp1 20:15 BP 126 / 86; Pulse 72; Resp 16; Pulse Ox 97% on R/A; lp1 21:15 BP 127 / 80; Pulse 76; Resp 18; Pulse Ox 97% on R/A; lp1 17:45 Leach-Ngoc (FACES) hb [place] Coma Score: 19:40 Eye Response: spontaneous(4). Verbal Response: confused(4). Motor Response: obeys lp1 commands(6). Total: 14. ED Course: 17:44 Patient arrived in ED. sv 17:49 Triage completed. hb 17:50 Arm band placed on. hb 17:51 Jarvis Greer NP is PHCP. pm1 17:51 Moi Avalos MD is Attending Physician. pm1 17:53 Kiley Nixon, RN is Primary Nurse. hb 17:57 EKG done, by ED staff, reviewed by Jarvis Greer NP. sv 18:09 Missed attempt(s): 24 gauge in left hand. Bleeding controlled, band aid applied, hb catheter tip intact. 18:12 Missed attempt(s): 22 gauge in right antecubital area. Bleeding controlled, band aid hb applied, catheter tip intact. 18:15 Missed attempt(s): 24 gauge in left hand. Bleeding controlled, band aid applied, hb catheter tip intact. 18:20 CT Head Brain wo Cont In Process Unspecified. EDMS 18:23 Side rails up X2. hb 19:14 Primary Nurse role handed off by Kiley Nixon RN 19:55 Marla Gibson, CLAUDIA is Primary Nurse. lp1 21:31 No provider procedures requiring assistance completed. Patient did not have IV access lp1 during this emergency room visit. Administered Medications: No medications were administered Outcome: 21:02 Discharge ordered by MD. pm1 21:32 Discharged to home via wheelchair. lp1 21:32 Condition: stable 21:32 Discharge instructions given to patient, Instructed on discharge instructions, follow up and referral plans. Demonstrated understanding of instructions, follow-up care. 21:32 Patient left the ED. lp1 Signatures: Dispatcher [employer] Marissa Donahue RN RN Marla Gibson RN RN lp1 Jarvis Greer NP BPO SPECIALIST pm1 Kiley Nixon RN RN Kari Rivera
[2020-09-08 21:04] LABS: Platelet Estimate ADEQ; White Blood Cell Scan OK (OK)
[2020-09-08 21:05] LABS: Blood Morphology Comment NOT SEEN (NOT SEEN)
[2020-09-09 03:27] VITALS: TEMP 97.2
[2020-09-09 03:31] VITALS: O2SAT 97
[2020-09-09 03:33] VITALS: BP 127/80
--- NOTE | 2020-09-09 09:49 | EKG ---
Test Date: 2020-09-08 Test Time: 17:57:19 Composite Laminator: SV MEASUREMENT RESULTS: Intervals: Rate: 100 KS: 156 QRSD: 86 QT: 336 QTc: 433 Vale: P: 51 KS: 156 QRS: 14 T: 43 INTERPRETIVE STATEMENTS: Normal sinus rhythm Possible Left atrial enlargement Cannot rule out Anterior infarct, age undetermined Abnormal ECG Compared to ECG 06/11/2020 03:43:37 Myocardial infarct finding now present Electronically Signed On 09-09-20 09:47:44 CDT by Merrill Guzman
== END 2020-09-08 21:32 | disposition home or self-care (01) ==
LOC: ER 17:41
DX: G40.802 Other epilepsy, not intractable, without status epilepticus (principal)
CPT/HCPCS: 36415; 70450; 80048; 80076; 80307; 80320; 80329; 81003; 81025; 85025; 85610; 85730; 93005; 99284

== ENCOUNTER 2020-09-28 18:46 | Emergency (ER) | payer OTHER ==
--- OUTSIDE RECORDS SUMMARY | 2020-09-28 18:52 | XMS REPORT | Continuity of Care Document ---
:1990 Author Organization [facility] t Address [address] [place] [address] Care Team Providers Name Role Phone Asked, Pcp Primary Care Physician Unavailable Justin Foster MD Attending Clinician Rickie TAYLOR, A Attending Clinician Unavailable Cecil Van MD Attending Clinician Arya MENDOZA Attending Clinician Rafael CRUZ Attending Clinician Unavailable Niki TAYLOR, A Attending Clinician Unavailable Pavan Matos DO Attending Clinician Gaye MENDOZA Attending Clinician Mayito Daily MD Attending Clinician Vicente Alvarado MD Attending Clinician Pham Watkins MD Attending Clinician Lisa MENDOZA Attending Clinician Leo MENDOZA Attending Clinician Nivia MENDOZA Attending Clinician Vini Turner MD Attending Clinician Darren CRUZ Attending Clinician Unavailable Chandrika Ron MD Attending Clinician Alissa MENDOZA Attending Clinician Ninfa MENDOZA Attending Clinician Di TAYLOR Attending Clinician Unavailable Adolfo Koenig MD Attending Clinician uSsi Diana MD Attending Clinician BRANDO RODAS Attending Clinician Unavailable ARYA Admitting Clinician Unavailable HOWARD Admitting Clinician Unavailable ALISSA Admitting Clinician Unavailable GAYE Admitting Clinician Unavailable Juliano DEJESUS Admitting Clinician Unavailable Payers Payer Name Policy Policy Effective Expiration Source Type Number Date Date CIGNACIGNA OPEN [id number] 2019 [facility] ACCESS/[id number] 2 00:00:00 Worship /2020-PresentO [facility] MEDICAIDUNITEDHEALTHCARE [id number] 2020 [facility] 00:00:00 Worship [id number] 2020-Present O Problems Condition Condition Condition Status Onset Resolution Last Treating Co mments Source Name Details Category Date Date Treatment Clinician Date Abdominal Abdominal Disease Active [facility] pain pain 1-11 [facility] st 00 Epilepsy Epilepsy Disease Active 2019-06 [place] 0-[facility] st 00 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 00:00: st with with 00 generaliza generaliza tion and tion and with with intractabl intractabl e epilepsy e epilepsy Seizure Seizure Disease Active [facility] 5-30 [facility] st 00 Hypokalemi Hypokalemi Disease Active 2016-[address] [facility] [place] Acute Acute Disease Active 2016-[address] [facility] encephalop encephalop 30 [place] kes - athy athy 00:00: Medical 00 [place] Seizure Seizure Disease Active 2016-[address] [facility] [address] disorder disorder 07-14 [facility] Medical 00 [place] Leukocytos Leukocytos Disease Active 2016-[address] is is 07-14 [facility]: Medical 00 [place] Less than Less than Disease Active 2016-[address] [facility] [address] 8 weeks 8 weeks 07-14 [facility] - gestation gestation 00:00: [facility] jesica of of 00 Center Allergies, Adverse Reactions, Alerts Allergy Allergy Status Severity Reaction(s) Onset Inactive Treating Comm ents Source Name Type Date Date Clinician No Known DA Active U [facility] All[facility]ie 02-23 [facility] 00:[facility]: d [facility] No Known DA Active U 2016-06 [facility] Allergie 07-08 [facility] [facility] 00:[facility]: [address] Family History Family Member Diagnosis Comments Start Date Stop Date Source Natural father No Known Problems [facility] Natural mother No Known Problems [facility] Paternal Multiple sclerosis Luz Cruzist grandmother Family member Diabetes [facility] Family member Hypertension [facility] ethodist Social History Social Habit Start Date Stop Date Quantity Comments Source Exposure to Not sure [facility] Metho dist SARS-CoV-2 (event) Tobacco use and 2020-09-10 2020-09-10 Never used [facility] ethodist exposure 00:00:00 00:00:00 Alcohol intake 2020-09-10 2020-09-10 Ex-drinker [facility]ly [facility] thodist 00:00:00 00:00:00 (finding) Sex [birth year] [facility] ethodist 00:00:00 00:00:00 Smoking Status Start Date Stop Date Source Never smoker [facility] Nancyis t Medications Ordered Filled Start Stop Current Ordering Indication Dosage Frequency Signature Comments Components Source Medication Medication Date Date Medication? Clinician (SIG) Name Name ferrous 2020- Yes 325mg Q.5D Take 1 [place] sulfate 325 09-13 tablet Metho di (65 FE) MG 00:00: 23:59 ([address] tablet 00 :00 total) by mouth 2 (two) times a day with meals for 30 days. cloBAZam 2020- Yes Other 25mg Q.5D Take 2.5 [facility] st[facility] (ONFI) 10 09-13 generalized tablets [facility] mg tablet 00:00: 23:59 epilepsy, ([address] 00 :00 intractable total) by , without mouth 2 status (two) epilepticus times a (HCC) day for 30 days. cloBAZam 2020- No Other 30mg Q.5D Take 1.5 [facility] st[facility] (ONFI) 20 09-13 generalized tablets [facility] mg tablet 00:00: 00:00 epilepsy, ([address] 00 :00 intractable total) by , without mouth 2 status (two) epilepticus times a (HCC) day for 30 days. cloBAZam 2020- No Other 25mg Q.5D Take 2.5 [facility] (ONFI) 10 09-13 generalized tablets [facility] mg tablet 00:00: 00:00 epilepsy, ([address] 00 :00 intractable total) by , without mouth 2 status (two) epilepticus times a (HCC) day for 30 days. cloBAZam 2020- No 40mg QD Take 2 [place] (ONFI) 20 309-13 tablets [facility] i mg tablet 00:00: 00:00 ([address] 00 :00 total) by mouth daily for 60 days. phenytoin 2020- No 100mg Q.5D Take 100 [place] (DILANTIN) 1-15 01-15 mg by [facility] 100 MG ER 13:41: 00:[address] capsule 47 :00 (two) times a day. cloBAZam 2020- No 30mg QD Take 3 [place] (ONFI) 10 1-15 03-09 tablets Method i mg tablet 00:00: 00:00 ([address] 00 :00 total) by mouth daily for 60 days. cloBAZam 2019-06- No 30mg QD Take 3 [place] (ONFI) 10 1-12 01-15 tablets Method i mg tablet 00:00: 00:00 ([address] 00 :00 total) by mouth daily for 180 days. ergocalcife 2019-2019- No [id number] Q7D Take 1 [place] rol 0-31 [...] Take 1 Nunez complex-vit 11-14 tablet by Ia thodi carter 00:00: 23:[address] C-folic [...] ts Source Name Name Tdap 2020-05-02 Completed [facility] 00:00:00 Worship Vital Signs Vital Name Observation Time Observation Value Comments Source Systolic blood 2020-09-13 11:57:40 134 mm[Hg] [place] [facility] pressure Diastolic blood 2020-09-13 11:57:40 79 mm[Hg] [place] W[facility] pressure Heart rate 2020-09-13 11:57:40 71 /min Enrique Piedra Respiratory rate 2020-09-13 11:57:40 18 /min [place] [facility] Oxygen saturation in 2020-09-13 11:57:40 100 /min Enrique Piedra Arterial blood by Pulse oximetry Body temperature 2020-09-13 04:06:17 36.78 Melody Sonja lemus Worship Body weight 2020-09-10 19:14:07 72.122 kg Enrique Piedra BMI 2020-09-10 19:14:07 28.17 kg/m2 Enrique Piedra Body height 2020-09-10 13:57:00 160 cm Enrique Piedra Procedures Procedure Date / Time Performing Clinician Source Performed HC COMPLETE BLD COUNT 2020-09-13 04:31:00 Rosalie Koenig Worship W/AUTO DIFF COMPREHENSIVE METABOLIC 2020-09-13 04:31:00 Rosalie Koenig Worship PANEL ESTIMATED GFR 2020-09-13 04:31:00 Rosalie Koenig Meth odist HC COMPLETE BLD COUNT 2020-09-12 05:40:00 Rosalie Koenig Worship W/AUTO DIFF COMPREHENSIVE METABOLIC 2020-09-12 04:00:00 Rosalie Koenig Worship PANEL ESTIMATED GFR 2020-09-12 04:00:00 Rosalie Koenig Meth odist FERRITIN LEVEL 2020-09-11 04:48:00 Ulises Choudhary odadriano TOTAL IRON BINDING 2020-09-11 04:48:00 Ulises Choudhary M ethodist CAPACITY CT HEAD WO CONTRAST 2020-09-10 21:15:00 Ulises Choudhary XR CHEST 1 VW PORTABLE 2020-09-10 17:39:00 Yovany Van URINE CULTURE 2020-09-10 17:05:00 Tu, Alexander Piedra URINALYSIS SCREEN AND 2020-09-10 16:30:00 Tu, Alexander Piedra MICROSCOPY, WITH REFLEX TO CULTURE HCG QUALITATIVE, URINE 2020-09-10 16:30:00 Tu, Alexander Piedra SCREEN COVID-19 QUALITATIVE PCR 2020-09-10 16:24:00 Yovany Van HC COMPLETE BLD COUNT 2020-09-10 14:59:00 Tu, Alexander Piedra W/AUTO DIFF COMPREHENSIVE METABOLIC 2020-09-10 14:00:00 Tu, Alexander Piedra PANEL ESTIMATED GFR 2020-09-10 14:00:00 Tu, Alexander Piedra HC COMPLETE BLD COUNT 2020-06-29 05:00:00 Mila Fitzgerald Worship W/AUTO DIFF FREE PHENYTOIN LEVEL 2020-06-29 05:00:00 Mila Fitzgerald BASIC METABOLIC PANEL 2020-06-29 04:00:00 Mila Fitzgerald Worship MAGNESIUM LEVEL 2020-06-29 04:00:00 Mila Fitzgerald Meth odist PHOSPHORUS LEVEL 2020-06-29 04:00:00 Mila Fitzgerald Met hodist PHENYTOIN LEVEL 2020-06-29 04:00:00 Mila Fitzgerald Meth odist ESTIMATED GFR 2020-06-29 04:00:00 Mila Fitzgerald Meth odist HC COMPLETE BLD COUNT 2020-06-28 05:00:00 Mila Fitzgerald Worship W/AUTO DIFF BASIC METABOLIC PANEL 2020-06-28 04:00:00 Mila Fitzgerald Worship MAGNESIUM LEVEL 2020-06-28 04:00:00 Mila Fitzgerald Meth odist PHOSPHORUS LEVEL 2020-06-28 04:00:00 Mila Fitzgerald Met hodist PHENYTOIN LEVEL 2020-06-28 04:00:00 Mila Fitzgerald Meth odist FREE PHENYTOIN LEVEL 2020-06-28 04:00:00 Mila Fitzgerald ESTIMATED GFR 2020-06-28 04:00:00 Mila Fitzgerald odist EEG AWAKE/ASLEEP LESS 2020-06-27 17:27:27 [place] THAN 41 MIN BASIC METABOLIC PANEL 2020-06-27 05:00:00 Mila Fitzgerald HC COMPLETE BLD COUNT 2020-06-27 05:00:00 Mila Fitzgerald W/AUTO DIFF MAGNESIUM LEVEL 2020-06-27 05:00:00 Mila Fitzgerald odist PHOSPHORUS LEVEL 2020-06-27 05:00:00 Mila Fitzgerald Met hodist PHENYTOIN LEVEL 2020-06-27 05:00:00 Mila Fitzgerald odist FREE PHENYTOIN LEVEL 2020-06-27 05:00:00 Mila Fitzgerald ESTIMATED GFR 2020-06-27 05:00:00 Mila Fitzgerald odist SODIUM LEVEL, URINE, 2020-06-26 21:12:00 Gonzalo Watkins RANDOM OSMOLALITY, URINE 2020-06-26 21:12:00 Gonzalo Watkins OSMOLALITY, SERUM 2020-06-26 19:10:00 Gonzalo Watkins HCG QUALITATIVE, URINE 2020-06-26 18:50:00 Gonzalo Watkins SCREEN PROTHROMBIN TIME WITH INR 2020-06-26 16:30:00 Mila Fitzgerald PARTIAL THROMBOPLASTIN 2020-06-26 16:30:00 Mila Fitzgerald Worship TIME (PTT) HC COMPLETE BLD COUNT 2020-06-26 16:30:00 Mila Fitzgerald W/AUTO DIFF XR ABDOMEN ACUTE INC 2020-06-26 13:54:27 Gonzalo Watkins CHEST 1V HC COMPLETE BLD COUNT 2020-06-26 12:26:00 Leo, Mila [place] [facility] W/AUTO DIFF BASIC METABOLIC PANEL 2020-06-26 11:25:00 Mila Fitzgerald Worship ESTIMATED GFR 2020-06-26 11:25:00 Mila Fitzgerald Meth odist VENIPUNC NEED PHYS 2020-06-26 10:40:22 Juanita Matthew ethodist SKILL,DX OR RX CT HEAD WO CONTRAST 2020-06-25 23:24:53 Gonzalo Watkins HC COMPLETE BLD COUNT 2020-06-25 21:00:00 Gonzalo Watkins W/AUTO DIFF PROTHROMBIN TIME WITH INR 2020-06-25 21:00:00 Gonzalo Watkins PARTIAL THROMBOPLASTIN 2020-06-25 21:00:00 Gonzalo Watkins TIME (PTT) B NATRIURETIC PEPTIDE 2020-06-25 21:00:00 Gonzalo Watkins SMEAR REVIEW 2020-06-25 21:00:00 Gonzalo Watkins Worship COMPREHENSIVE METABOLIC 2020-06-25 20:12:00 Gonzalo Watkins Worship PANEL PHENYTOIN LEVEL 2020-06-25 20:12:00 Gonzalo Watkins Worship HC COMPLETE BLD COUNT 2020-06-25 11:53:00 Mina Gonzáles W/AUTO DIFF COMPREHENSIVE METABOLIC 2020-06-25 11:53:00 Mina Gonzáles Worship PANEL PREALBUMIN LEVEL 2020-06-25 11:53:00 Mina Gonzáles Met hodist MAGNESIUM LEVEL 2020-06-25 11:53:00 Mina Gonzáles Meth odist PHOSPHORUS LEVEL 2020-06-25 11:53:00 Mina Gonzáles Met hodist FREE PHENYTOIN LEVEL 2020-06-25 11:53:00 Mina Gonzáles ESTIMATED GFR 2020-06-25 11:53:00 Mina Gonzáles Meth odist ACHR ABS, TITIN AB, STM 2020-06-25 11:53:00 ChiharMina awad ABS RFLX PANEL STRIATED MUSCLE ABS, IGG 2020-06-25 11:53:00 Mina Gonzáles TITER COVID-19 QUALITATIVE PCR 2020-06-25 10:39:00 Mina Gonzáles BASIC METABOLIC PANEL 2020-06-22 14:58:00 Cristian, Marilee Piedra PARTIAL THROMBOPLASTIN 2020-06-22 14:58:00 Cristian, Marilee [facility] capri Piedra TIME (PTT) PROTHROMBIN TIME WITH INR 2020-06-22 14:58:00 Cristian, Marilee [facility] Worship CBC HEMOGRAM 2020-06-22 14:58:00 Cristian, Marilee [facility] M ethodist HEMOGLOBIN A1C 2020-06-22 14:58:00 Arlene Brumfield M ethodist ESTIMATED GFR 2020-06-22 14:58:00 Cristian, Marilee [facility] M ethodist CT ABDOMEN PELVIS W 2020-06-19 01:41:06 Yovany Van Worship CONTRAST COVID-19 QUALITATIVE PCR 2020-06-19 00:31:00 Yovany Van HC COMPLETE BLD COUNT 2020-06-19 00:31:00 Yovany Van W/AUTO DIFF COMPREHENSIVE METABOLIC 2020-06-19 00:31:00 Yovany Van PANEL LIPASE LEVEL 2020-06-19 00:31:00 Yovany Van Me thodist ESTIMATED GFR 2020-06-19 00:31:00 Yovany Van Me thodist URINE CULTURE 2020-06-18 23:56:00 Yovany Van Me thodist URINALYSIS SCREEN AND 2020-06-18 23:56:00 Yovany Van MICROSCOPY, WITH REFLEX TO CULTURE HCG QUALITATIVE, URINE 2020-06-18 23:56:00 Yovany Van SCREEN COVID-19 QUALITATIVE PCR 2020-05-02 16:10:00 Daniel Turner URINE CULTURE 2020-05-02 15:51:[address] HEAD WO CONTRAST 2020-05-02 15:47:02 Daniel [place] on Worship HC COMPLETE BLD COUNT 2020-05-02 15:30:00 Terri Turnerori Martini [facility] aguila Worship W/AUTO DIFF HCG QUALITATIVE, SERUM 2020-05-02 15:30:00 Daniel Turner Worship SCREEN BASIC METABOLIC PANEL 2020-05-02 15:30:00 Daniel Turner Worship ESTIMATED GFR 2020-05-02 15:30:00 Daniel Turner Vini Rai ethodist SMEAR REVIEW 2020-05-02 15:30:00 Daniel Turner Viin Rai ethodi URINALYSIS SCREEN AND 2020-05-02 15:28:00 Daniel Turner MICROSCOPY, WITH REFLEX TO CULTURE POC GLUCOSE 2020-04-06 17:27:00 Freddy Ocasio Meth odist RIBONUCLEIC ANTIBODY 2020-04-06 16:50:00 Ninfa Johnson Worship (WASTE HANDLING 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) Ninfa DOUBLE-STRANDED DNA 2020-04-06 16:50:00 Ninfa Johnson Worship (DSDNA) ANTIBODIES, Ninfa CRITHIDIA CENTROMERE ANTIBODY 2020-04-06 16:50:00 Ninfa Johnson Worship Ahmed POTASSIUM LEVEL 2020-04-05 17:40:00 Reza Avelar odist HOMOCYSTINE, PLASMA 2020-04-05 17:40:00 Reza Avelar EEG AWAKE/DROWSY LESS 2020-04-05 11:03:26 Reza Avelar Worship THAN 41 MIN HC COMPLETE BLD COUNT 2020-04-05 04:00:00 Caesar Maxwell on Worship W/AUTO DIFF VITAMIN B12 LEVEL 2020-04-05 04:00:00 Reza Avelar Me thodist C-REACTIVE PROTEIN 2020-04-05 04:00:00 Reza Avelar ethodist HOMOCYSTINE, PLASMA 2020-04-05 04:00:00 Reza Avelar Worship RHEUMATOID FACTOR 2020-04-05 04:00:00 Reza Avelar Me thodist THYROID STIMULATING 2020-04-05 04:00:00 Reza Avelar HORMONE T4, FREE 2020-04-05 04:00:00 Reza Avelar Meth odist T3 2020-04-05 04:00:00 Reza Avelar Meth odist SYPHILIS TOTAL ANTIBODY 2020-04-05 04:00:00 Reza Avelar Worship HIV AG/AB COMBINATION 2020-04-05 04:00:00 Reza Avelar n Worship VITAMIN D 25 HYDROXY 2020-04-05 04:00:00 Reza Avelar Worship LEVEL BASIC METABOLIC PANEL 2020-04-05 04:00:00 Caesar Maxwell on Worship FOLATE LEVEL 2020-04-05 04:00:00 Caesar Maxwell Met hodist MAGNESIUM LEVEL 2020-04-05 04:00:00 Caesar Maxwell Met hodist ESTIMATED GFR 2020-04-05 04:00:00 Caesar Maxwell Met hodist COVID-19 QUALITATIVE PCR 2020-04-04 22:52:[address] HEAD WO CONTRAST 2020-04-04 21:17:59 Max Ron Worship CBC HEMOGRAM 2020-04-04 21:00:00 Max Ron Me thodist SEDIMENTATION RATE 2020-04-04 21:00:00 Max Ron URINE CULTURE 2020-04-04 20:52:00 Max Ron Me thodist KEPPRA (LEVETIRACETAM) 2020-04-04 20:15:00 Max Ronu ston Worship LEVEL URINALYSIS SCREEN AND 2020-04-04 19:19:00 Max Ron Worship MICROSCOPY, WITH REFLEX TO CULTURE URINE DRUGS OF ABUSE 2020-04-04 19:19:00 Max Ron on Worship SCREEN PROLACTIN LEVEL 2020-04-04 19:07:00 Max Ron Me thodist ECG 12-LEAD 2020-04-04 19:02:38 Max Ron Me thodist CRITICAL CARE 2020-04-04 18:48:10 ZeeshanLila dunn Enrique Meth odist COMPREHENSIVE METABOLIC 2020-04-04 18:33:00 Max Ron Eliot farooq Worship PANEL LACTIC ACID LEVEL, SEPSIS 2020-04-04 18:33:00 Max Ron Nunez Worship - NOW AND REPEAT 2X EVERY 3 HOURS MAGNESIUM LEVEL 2020-04-04 18:33:00 Max Ron Me thodist PHOSPHORUS LEVEL 2020-04-04 18:33:00 Max Ron M ethodist ESTIMATED GFR 2020-04-04 18:33:00 Max Ron Me thodist PET BRAIN METABOLIC EVAL 2020-03-30 13:51:58 Richard Huizar [place] Piedra POC GLUCOSE 2020-03-30 12:29:00 Richard Huizar Enrique Light odist MRI BRAIN W WO CONTRAST 2020-03-27 13:50:00 Huizar, Richard lemus Worship MONITORED VIDEO-EEG 60 2020-03-15 12:14:01 Pinky Huizarnina [place] on Worship HRS 1 MIN-74 HRS MONITORED W VIDEO DAILY 2020-03-15 00:12:21 Gaye Richard lemus Worship MONITORED W VIDEO DAILY 2020-03-14 00:24:17 Gaye Richard lemus Worship EEG SETUP 2020-03-13 00:17:20 Richard Huizar Enrique Light odist HC COMPLETE BLD COUNT 2020-03-12 14:18:00 Ulises Choudhary W/AUTO DIFF COMPREHENSIVE METABOLIC 2020-03-12 14:18:00 Ulises Choudhary Worship PANEL ESTIMATED GFR 2020-03-12 14:18:00 HuizarPinky awadnina Light odist MAGNESIUM LEVEL 2020-03-12 14:18:00 Richard Huizar Enrique Meth odist CT HEAD WO CONTRAST 2020-03-12 13:25:51 Ulises Choudhary COVID-19 QUALITATIVE PCR 2020-03-12 11:53:00 Ulises Choudhary UNMONITORED VIDEO-EEG 36 2019-11-15 09:41:23 Bina Bonds HRS 1 MIN-50 HRS CBC WITH PLATELET AND 2019-11-15 04:30:00 Adrian Diana Worship DIFFERENTIAL Ebrahim MANUAL DIFFERENTIAL 2019-11-15 04:30:00 Adrian Diana Ebrahim BASIC METABOLIC PANEL 2019-11-15 04:00:00 Adrian Diana Worship Ebrahim ESTIMATED GFR 2019-11-15 04:00:00 Adrian Diana Meth odist Ebrahim UNMONITORED VIDEO DAILY 2019-11-15 01:22:22 Bina Bonds EEG SETUP 2019-11-14 00:26:44 Bina Bonds EEG (ROUTINE) 2019-11-13 07:46:23 Bina Bonds CBC WITH PLATELET AND 2019-11-13 04:00:00 Caesar Maxwell on Worship DIFFERENTIAL BASIC METABOLIC PANEL 2019-11-13 04:00:00 Caesar Maxwell on Worship TOTAL IRON BINDING 2019-11-13 04:00:00 Caesar Maxwell CAPACITY FERRITIN LEVEL 2019-11-13 04:00:00 Caesar Maxwell Met hodist ESTIMATED GFR 2019-11-13 04:00:00 Caesar Maxwell Met hodist MANUAL DIFFERENTIAL 2019-11-13 04:00:00 Caesar Maxwell MRI BRAIN W WO CONTRAST 2019-11-13 02:16:00 Bina Bonds CONSULT TO OSTOMY CARE 2019-11-12 23:40:27 Caesar Maxwell Worship NURSE ECG 12-LEAD 2019-11-12 21:10:47 Bina Bonds MARCELINO 2019-11-12 19:40:00 Bina Bonds FOLATE LEVEL 2019-11-12 19:40:00 Bina Bonds VITAMIN B12 LEVEL 2019-11-12 19:40:00 Bina Bonds C-REACTIVE PROTEIN 2019-11-12 19:40:00 Bina Bonds on Worship HOMOCYSTINE, PLASMA 2019-11-12 19:40:00 Bina Bonds Worship CORTISOL LEVEL, RANDOM 2019-11-12 19:40:00 Bina Bondsston Worship SEDIMENTATION RATE 2019-11-12 19:40:00 Bina Bonds on Worship RHEUMATOID FACTOR 2019-11-12 19:40:00 Bina Bonds Worship THYROID STIMULATING 2019-11-12 19:40:00 Bina Bonds Worship HORMONE T4, FREE 2019-11-12 19:40:00 Bina Bonds Worship SYPHILIS TOTAL ANTIBODY 2019-11-12 19:40:00 Bina Bonds Worship HIV AG/AB COMBINATION 2019-11-12 19:40:00 Bina Bonds Worship VITAMIN D 25 HYDROXY 2019-11-12 19:40:00 Bina Bonds ston Worship LEVEL CREATINE KINASE, TOTAL 2019-11-12 19:40:00 Shari Koenig on Worship (CPK) [facility] PROLACTIN LEVEL 2019-11-12 19:40:00 Shari Koenig Meth odist Adolfo MARCELINO TITER 2019-11-12 19:40:00 Shari Koenig Meth odist Adolfo CT CERVICAL SPINE WO 2019-11-12 18:12:54 Shari Koenig Worship CONTRAST [facility] CT MAXILLOFACIAL WO 2019-11-12 18:09:40 Shari Koenig Worship CONTRAST Adolfo CT HEAD WO CONTRAST 2019-11-12 18:09:19 Shari Koenig Worship Adolfo XR CHEST 1 VW PORTABLE 2019-11-12 17:35:36 Shari Koenig on Worship Adolfo HC COMPLETE BLD COUNT 2019-11-12 17:04:00 Shari Koenig Worship W/AUTO DIFF [facility] COMPREHENSIVE METABOLIC 2019-11-12 17:04:00 Shari Koenig Worship PANEL Adolfo ALCOHOL LEVEL, BLOOD 2019-11-12 17:04:00 Shari Koenigist Adolfo KEPPRA (LEVETIRACETAM) 2019-11-12 17:04:00 Shari Koenig on Worship LEVEL Adolfo ESTIMATED GFR 2019-11-12 17:04:00 Arya Sharimayda Nunez Meth odist Adolfo URINE CULTURE 2019-11-12 14:44:00 Keanu Flores Meth odist URINALYSIS SCREEN AND 2019-11-12 14:44:00 Keanu Flores Worship MICROSCOPY, WITH REFLEX TO CULTURE HCG QUALITATIVE, URINE 2019-11-12 14:44:00 Keanu Flores on Worship SCREEN URINE DRUGS OF ABUSE 2019-11-12 14:44:00 Keanu Flores Worship SCREEN Plan of Care Planned Activity Planned Date Details Comments Source Future Scheduled 2021-01-13 INFLUENZA VACCINE [place] [facility] W[facility] Test 00:00:00 [code = INFLUENZA VACCINE] Future Scheduled 2010 Screening for Enrique Me thodist Test 00:00:00 malignant neoplasm of cervix (procedure) [code = 781953197] Future Scheduled 2007-11-08 Hepatitis C Enrique Met hodist Test 00:00:00 screening (procedure) [code = 447205144] Future Scheduled 2005 COVID-19 VACCINE (1) Chandler aguila Worship Test 00:00:00 [code = COVID-19 VACCINE (1)] Encounters Start End Encounter Admission Attending Care Care Encounter Source Date/Time Date/Time Type Type Clinicians Facility Department ID 2020-09-26 2020-09-26 Outpatient CRISTIAN MARILEE [facility] [id number] [place] 00:00:00 00:00:[address] 2020-09-19 2020-09-19 Transition ELVIA Damian [id number] 00:00:00 00:00:00 of Care Fanny BRASWELL [id number] [facility] [id number] 2020-09-10 2020-09-13 [facility]patient [facility] [id number] [place] 00:00:00 00:00:00 ROSALIE [address] 2020-09-04 2020-09-04 Patient SENDY Matos [id number] 00:00:00 00:00:00 Outreach Papo KIM [id number] [id number] [id number] 2020-07-26 2020-07-26 [facility] Darvin Mayito Joann [id number] 09:42:44 23:59:00 Encounter Keiko [id number] [place] [id number] 2020-06-25 2020-06-29 Inpatient LEO, [facility] [id number] [place] 00:00:00 00:00:00 MILA [address] 2020-06-25 2020-06-25 Outpatient CHIHARA, [facility] [id number] [place] 00:00:00 00:00:00 RAY [address] 2020-06-25 2020-06-25 Outpatient CHIRAMSEYA, [facility] [id number] [place] 00:00:00 00:00:00 RAY [address] 2020-06-22 2020-06-22 Outpatient CRISTIAN, MARILEE [facility] [id number] [place] 00:00:00 00:00:[address] 2020-06-18 2020-06-19 Emergency TOYA, [facility] [id number] [place] 00:00:00 00:00:00 BEAU [address] 2020-05-15 2020-05-15 Outpatient CRISTIAN, MARILEE [facility] [id number] [place] 00:00:00 00:00:[address] 2020-05-02 2020-05-02 Emergency ANTHONY, [facility] [id number] [place] 00:00:00 00:00:00 DANIEL [address] 2020-04-26 2020-04-26 Outpatient HUIZARRICHARD [facility] [id number] [place] 00:00:00 00:00:[address] 2020-04-04 2020-04-07 Inpatient NINFA, [facility] [id number] [place] 00:00:00 00:00:00 YAHYA [address] 2020-03-30 2020-03-30 Outpatient RICHARD HUIZAR [facility] [id number] [place] 00:00:00 00:00:[address] 2020-03-27 2020-03-27 Outpatient RICHARD HUIZAR [facility] [id number] [place] 00:00:00 00:00:[address] 2020-03-12 2020-03-15 Inpatient RICHARD HUIZAR [facility] [id number] [place] 00:00:00 00:00:[address] 2020-02-16 2020-02-16 Outpatient RICHARD HUIZAR [facility] [id number] [place] 00:00:00 00:00:[address] 2019-11-12 2019-11-15 Inpatient LIANA, [facility] [id number] [place] 00:00:00 00:00:00 ADRIAN [address] Results Test Description Test Time Test Comments Results Result Comments Source Urine culture 2020-09-11 20:20:59 Test Item Value Reference Range Interpretation Comme nts Urine culture isolate Mixed prem <=10-3 Specimen InformationSpecimen (test code = 33581-9) col/cc Source : UrineSpecimen Site: Clean catch [place] [facility] Wo [id number] 21:41:56Hm Interface, Radiology Results 09/10/2020 9:44 PM CDTFormatting of this note might be di fferent from the original.EXAMINATION: CT HEAD WO CONTRASTCLINICAL HISTORY: Seizure nontraumatic (Age 18-40y)COMPARISON: CT head 06/25/2020.TECHNIQUE: Noncontrast head CT performed using radiation dose reduction techniques. Technical factors are evaluated and adjusted to ensure appropriate moderation of exposure. Automated dose management technology is applied to adjust radiation exposure while achieving a diagnostic quality image. FINDINGS:No acute intra or extra-axial hemorrhage identified. The edmondson-white matter differentiation is preserved. The basal ganglia, thalami, midbrain, [place] and cervicomedullary junction are unremarkable. No mass, mass effect, or midline shift is seen. Ventricles and sulci are normal in appearance for patient's age. Basal cisterns are patent. Calvarium is intact.The orbital contents are symmetric and normal in appearance. The visualized paranasal sinuses are unremarkable. The mastoid air cells and middle ear cavities are clear. Scalp soft tissues are unremarkab le.IMPRESSION:No acute intracranial abnormality identified.1M2RAD_PS01[facility] Chest 1 Vw [id number] 17:40:12Hm Interface, Radiology Results Incoming - 09/10/2020 5:43 PM CDTFormatting of this note might be di fferent from the original.SINGLE VIEW CHEST, 09/10/2020linical History: Seizure.Technique: Single, portable AP view chest.Comparison: 11/12/2019Impression:1.Lungs are clear and symmetrically inflated.2.No pleural effusions or pneumothorax.3.Normal heart size and mediastinal contour for technique.4.Normal pulmonary vasculature.5.Intact skeleton.[facility]EEG (routine)2020-06-28 08:27:01VIDEO-EEG RECORDING AWAKE & DROWSY. Date of Service:06/27/20 Patient Name: Heather Hope of : 1990 Attending MD: Jojo Cruz MD Technique: Recordings were obtain ed using a standard international 10-20 electrode placement supplemented with a single electrocardiogram chest electrode. The recordings were obtained using a reference electrode and reformatted digitally into sequential bipolar and referential montages for review. Indication: 29 y.o. right-handed woman with a PMH significant for recurrent seizures and depression referred for video-EEG to evaluate for seizures. Findings: Background: The waking background at rest is continuous, composed of an admixture of largely alpha and beta frequencies, with the expected anterior to posterior voltage and frequency gradient with intermixed faster frequencies anteriorly and a symmetric and well-formed posterior dominant alpha rhythm of 9 hertz, that is reactive to eye opening. With drowsiness, there is the expected attenuation of the posterior dominant rhythm. Sleep is not captured. Hyperventilation: was notperformedPhotic stimulation: was not performed Interictal: occasional sharp waves over the right frontal temporal occipital region that occasionally occur in 3-7 second bursts . Impression:This is an abnormal Video-EEG study characterized by occasional epileptiform discharges over the right frontal temporal occipital region. No seizures were captured. Jojo Cruz MD ICD-10 Code: P759Sahlxui MethodistXR Abdomen Acute Inc [id number] 14:14:14Hm Interface, Radiology Results Incoming - 06/26/2020 2:17 PM CST EXAMINATION: XR ABDOMEN ACUTE INC CHEST 1VHISTORY: Nausea vomiting, LMP 18 20COMPARISON: 11/11/2020.IMPRESSION: Support Devices: None.Mediastinum: Normal appearance of cardiomediastinal contours.Lungs: The lungs are clear. No evidence of pleural effusion or pulmonary edema.No pneumothorax. Abdomen: Mild gaseous distention of small and large bowel loops. Overall nonobstructive bowel gas pattern. Moderate colonic stool burden visualized on the level of the distal sigmoid. No rectal gas visualized. No pneumatosis or evidence of portal venous gas. No pathologic calcifications evident.Bones/Other: Unremarkable.1D2RAD_PS01[facility] MethodistVENIPUNC NEED PHYS SKILL,DX OR [id number] 10:40:22Juanita Matthew RN 06/26/2020 10:42 AMMidline Insertion Date/Time: 06/26/2020 10:40 AMPerformed by:Juanita Matthew, RNAuthorized by: Mila Fitzgerald MD Consent: Consent obtained: Verbal Consent given by: Patient Risks discussed: Arterial puncture, incorrect placement, nerve damage, bleeding, infection, superficial thrombus and deep vein thrombus Alternatives discussed: Alternative treatment, delayed treatment and no treatmentUniversal protocol: Procedure explained and questions answered to patient or proxy's satisfaction: yes Relevant documents present and verified: yes Test result s available and properly labeled: yes Imaging studies available: yes Required blood products, implants, devices, and special equipment available: yes Site/side marked: yes Immediately priorto procedure, a time out was called: yes Patient identity confirmed: Verbally with patient, arm band and hospital-assigned identification numberPre-procedure details: Hand hygiene: Hand hygiene performed prior to insertion Sterile barrier technique: All elements of maximal sterile technique followed Skin preparation: ChloraPrep Skin preparation agent: Dried prior to procedure Anesthesia (see MAR for exact dosages): Anesthesia method: Local infiltration Local anesthetic: Lidocaine 1% w/o epi Route administered: SubcutaneousMidLine Placement Details (Will create an LDA): Patient position: Flat Vessel Size (mm): 3 Indication: Poor venous access and 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 Location: Right basilic Device Type: Non-valved Catheter Lumen(s): Single lumen Catheter size: 4 FrMidLine Characteristics: Catheter Brand: BioFlo Midline External Catheter Length (cm):0 Internal Catheter Length (cm): 11 Total Catheter Length (cm): 11 Catheter Lot Number: [id number] Catheter Expiration Date: 03/14/2021rocedure details: Landmarks identified: yes Ultrasound guidance: yes Sterile ultrasound techniques: Sterile gel and sterile probe covers were used Number of attempts: 1 Number of MidLine kits used during procedure: 1 Extra guide wire required?: No Purpose of procedure: Midline Placement Patency/Placement: Flushes without difficulty, ultrasound, flushed with 10 mL normal saline, injection cap placed and positive blood return MidLine placed utilizing ultrasound-guided Modified Seldinger Technique: Yes Dressing/Securement: Catheter securement device and antimicrobial dressing applied Blood Loss Amount: Less than 20 mLSturtevant MethodistCT Abdomen Pelvis W [id number] 01:50:17Hm Interface, Radiology Results 06/19/2020 1:53 AM CST EXAMINATION: CT ABDOMEN PELVIS W CONTRASTCLINICAL HISTORY: abd [...] nondistended.Osseous structures are intact.IMPRESSION:No acute process.Small hiatal hernia.HMRM-LQVVQV3Zpwlify MethodistEpilepsy/Seizure kgntntitww7258-18-56 09:01:11EPILEPSY MONITORING UNIT REPORT Patient Name: Heather [...] left frontal central temporal region. ICD-10 Code: P025Cvzkbnt MethodistEpilepsy/Seizure monitoring 2020-04-23 09:00:05EPILEPSY MONITORING UNIT REPORT [...] left frontal central temporal region. ICD-10 Code: L392Pycqyvz [facility] Epilepsy/Seizure lqexmxtvkp9940-87-57 08:55:34EPILEPSY MONITORING UNIT REPORT Patient Name: Heather [...] left frontal central temporal region. ICD-10 Code: Z613Pfzgiqx [facility] Epilepsy/Seizure osaayziwyv7577-87-86 08:45:34EPILEPSY MONITORING UNIT REPORT Patient Name: Heather [...] left frontal central temporal region. ICD-10 Code: V058Errfapf MethodistECG 12 tatw1747-56-05 13:34:29 Test Item Value Reference Range Interpretation Comments Ventricular rate (test 77 code = 253) Atrial rate (test code 77 = 255) ND interval (test code 154 = 266) QRSD [...] of 12-NOV-2019 21:10,-No significant change was found- [facility]EEG (routine)2020-04-05 11:50:53VIDEO-EEG RECORDING AWAKE & ASLEEP. [...] are captured. Jojo Cruz MD ICD-10 Code: R255Brqfgbd MethodistCRITICAL [id number] 18:48:10BMax gleason MD 04/20/2020 3:37 PMCritical CarePerformed by: Lila ByersAuthorized by: Max Ron MD Critical care provider statement: Critical care time (minutes): 20 Critical care was necessary to treat or prevent imminent or life-threatening deterioration of the following conditions: SHIFT LEADER failure or compromise Critical care was time spent personally by me on the following activities: Blood draw for specimens, development of treatment plan with patient or surrogate, discus sions with consultants, discussions with primary provider, evaluation of patient's response to treatment, examination of patient, review of old charts, re-evaluation of patient's condition, pulse oximetry, ordering and review of radiographic studies, ordering and review of laboratory studies and ordering and performing treatments and interventions Vlad 'yes' if you are taking over critical care for this patient from another provider.: Hawa PiedraPET Brain Metabolic [id number] 14:42:07Hm Interface, Radiology Results [facility] - 03/30/2020 2:45 PM CDT PROCEDURE: PET BRAIN METABOLIC EVALINDICATION: R56.9 Unspecified convulsions, SeizuresCOMPARISON: MRI brain 03/27/2020 TECHNIQUE: Blood glucose measured at the time of injection was 86 mg/dL. The patient was injected IV with 8 mCi of 18F-FDG. Approximately one hour later, PETimages of the brain were obtained. Corresponding low dose CT scanning was performed as part of the at tenuation correction process. FINDINGS: There is mild hypometabolism [...] interictal study.2.Diffuse cerebellar hypometabolism suggests a pharmacologic effect.[facility]-[id number] [facility] Continuous EEG mrdlamlrpk0222-45-27 17:34:53CONTINUOUS VIDEO-EEG MONITORING REPORT Patient Name: Heather [...] independently. No seizures occurred. ICD-10 Code: R56.9[facility] MethodistContinuous EEG gshqjbkhho7481-28-37 07:42:19CONTINUOUS VIDEO-EEG MONITORING REPORT Patient Name: Heather Hope Date of : 1990 Gender: female Initial Study Start Date: 11/13/2019Initial Study Start Time: 5:07 Current Study Start Date: 11/14/2019Current Study Start Time: 00:00 Current Study End Date: 11/14/2019Current Study End Time: 23:59 IndicationSeizures Technical SummaryTechnique:Modified international 10/20 system of EEG electrode placement was used. Visual Analysis of EEG-Video Monitor ing:This electroencephalogram was recorded simultaneously with video throughout [...] Awake Recordings: The occipital dominant rhythm is 8- 9 Hz. 2-3 Hz activity was present in [...] independently. No seizures occurred. ICD-10 Code: R56.9[facility] Continuous EEG dgervruqxj3909-02-67 07:19:24 CONTINUOUS VIDEO-EEG MONITORING REPORT Patient Name: [...] regions independently. No seizures occurred. ICD-10 Code: R56.9[facility] MethodistEEG (routine) - Baseline [id number] 06:43:32EEG RECORDING AWAKE & ASLEEP - Baseline [...] agree with the above findings. Toya Rojo MethodistCT Cervical Spine Wo [id number] 18:17:20 Hm Interface, Radiology Results 11/12/2019 6:20 PM CDT EXAMINATION: CT CERVICAL SPINE WO CONTRASTCLINICAL HISTORY: fallCOMPARISON: NoneTECHNIQUE: Axial noncontrast enhanced images of the cervical spine were obtained with coronal and sagittal reconstructed algorithms. CT imaging was performed with iterative reconstruction technique and/or automated exposure control to reduce radiation dose.FINDINGS:There is straightening of the normal cervical lordosis which may be positional in nature. There is grade 1 anterolisthesis of C4 onC5 by 0.4 cm. The vertebral body heights [...] fracture or subluxation identified in the cervical spine.[facility]-[id number] MethodistCT Maxillofacial Wo Zpdscaft8087-41-04 18:15:46Hm Interface, Radiology Results 11/12/2019 6:18 PM CDT EXAMINATION: CT MAXILLOFACIAL WO CONTRASTCLINICAL HISTORY: Facial trauma fx suspectedCOMPARISON: NoneTECHNIQUE: Axial noncontrast enhanced images through the maxillofacial bones were obtained with bone and soft tissue algorithms. Coronal and sagittal reconstructions were also performed. CT imaging was performed with iterative reconstruction techniques and/or automated exposure control to reduce radiation dose.IMPRESSION:There is soft tissue swelling over the left zygomaand left maxilla.No fractures identified.Postseptal orbital soft tissues are unremarkable.The paranasal sinuses are clear.[facility]-[id number] MethodistRPR Shrxfbzhelc5347-79-71 16:47:08 Test Item Value Reference Range Interpretation [...] = 06-14-2020 N Expiration Dt) Thyroid Stimulating Svgmmjc1614-27-68 06:31:44 Test Item Value Reference Range Interpretation Comments TSH (test code = TSH) 3.830 mIU/mL 0.270-4.200 Lipid [id number] 06:24:40 Test Item Value Reference Range Interpretation Comments Cholesterol Total 152 mg/dL 0-200 RISK OF HE ART (test code = DISEASEPublishe d by Cholesterol Total) Citizen Of [place] Heart Association Marcelino lyte Optimal Borderl ine [...] LDL/HDL Ratio=L DL Calc/HDL Chol Urine Drug [id number] 21:53:06 Test Item Value Reference Range Interpretation [...] if desired . Urinalysis with Culture, if osxluidpe7549-05-00 21:40:53 Test Item Value Reference Range Interpretation [...] Indicated Not Indicated Micro Ind?) Comprehensive Metabolic [id number] 21:34:15 Test Item Value Reference Range Interpretation [...] = A/G 1.6 ratio N Ratio) Alcohol [id number] 21:34:15 Test Item Value Reference Range Interpretation Comments Ethanol Level (test <0.00 g/dL 0.00-0.01 Intoxica vandana 0.080 g/dL code = Ethanol or more Level) Ethanol Inst (test <0 N code = Ethanol Inst) Comprehensive Metabolic [id number] 21:34:15 Test Item Value Reference Range Interpretation [...] ag e have not been validated [facility] and should be interpreted wit h caution. eGFR R esult Interpretation: eGFR > or = 60 is in the Normal RangeeGF R < 60 may mean kid shannan diseaseeGFR < 1 5 may mean kidney failure Rang es recommended by the National Kidney Foundation, http://nkdep.ni h.gov Comprehensive Metabolic [id number] 21:34:15 Test Item Value Reference Range Interpretation [...] ag e have not been validated [facility] and should be interpreted [...] ag e have not been validated by [facility]D study and should be interpreted wit h caution. eGFR R esult Interpretation: eGFR > or = 60 is in the Normal RangeeGF R < 60 may mean kid shannan diseaseeGFR < 1 5 may mean kidney failure Rang es recommended by the National Kidney Foundation, http://nkdep.ni h.gov Complete Blood Count with Jvyaveprvvmd0294-47-56 21:15:24 Test Item Value Reference Range Interpretation [...] code = IPF) 0 % N Automated [id number] 21:15:24 Test Item Value Reference Range Interpretation Comments Neutro Auto (test code = Neutro 54.3 % 36.0-70.0 Auto) Lymph Auto (test code = Lymph Auto) 32.3 % 12.0-44.0 Attala Auto (test code = Attala Auto) 11.1 % 0.0-11.0 H Eos, Auto (test code = Eos, Auto) 1.3 % 0.0-7.0 Basophil Auto (test code = Basophil 0.7 % 0.0-2.0 Auto) Neutro Absolute (test code = Neutro 6.2 x10 1.6-7.4 Absolute) Lymph Absolute (test code = Lymph 3.71 x10 .50-4.60 Absolute) Attala Absolute (test code = Attala 1.28 x10 .00-1.20 H Absolute) Eos Absolute (test code = Eos 0.15 x10 0.00-0.74 Absolute) Baso Absolute (test code = Baso 0.08 x10 0.00-0.21 Absolute) IG [id number] 21:15:24 Test Item Value Reference Range Interpretation Comments IG (test code = IG) 0.3 % 0.0-5.0 IG Abs (test code = IG Abs) 0 x10 N HCG Qualitative [id number] 20:45:17 Test Item Value Reference Range Interpretation [...] 72 hours. Lot # (test code = [id number] N Lot #) Expiration Dt (test 2020-12-12 N code = Expiration Dt) Neg Control (test Negative code = Neg Control) Pos Control (test Positive code = Pos Control) Internal QC (test Acceptable code = Internal QC) RPR [id number] 12:07:58 Test Item Value Reference Range Interpretation [...] = 04-14-2020 N Expiration Dt) Thyroid Stimulating Jgpopqs8054-09-02 07:59:52 Test Item Value Reference Range Interpretation Comments TSH (test code = TSH) 0.717 mIU/mL 0.270-4.200 Lipid [id number] 07:52:46 Test Item Value Reference Range Interpretation Comments Cholesterol Total 141 mg/dL 0-200 RISK OF HE ART (test code = DISEASEPublishe d by Cholesterol Total) Citizen Of [place] Heart [employer] Marcelino lyte Optimal Borderl ine [...] LDL/HDL Ratio=L DL Calc/HDL Chol Urine Drug [id number] 15:27:40 Test Item Value Reference Range Interpretation [...] matory test if desired . Comprehensive Metabolic [id number] 15:15:20 Test Item Value Reference Range Interpretation [...] A/G 1.9 ratio N Ratio) Comprehensive Metabolic [id number] 15:15:20 Test Item Value Reference Range Interpretation [...] the National Kidney Foundation, http://nkdep.ni h.gov Alcohol [id number] 15:15:20 Test Item Value Reference Range Interpretation Comments Ethanol Level (test <0.00 g/dL 0.00-0.01 Intoxica vandana 0.080 g/dL code = Ethanol or more Level) Ethanol Inst (test <0 N code = Ethanol Inst) Comprehensive Metabolic [id number] 15:15:20 Test Item Value Reference Range Interpretation [...] the National Kidney Foundation, http://nkdep.ni h.gov Urinalysis Mgvygtvbhml1157-79-77 15:11:20 Test Item Value Reference Range Interpretation Comments UA WBC (test code = UA WBC) 6-10 0-5 A UA RBC (test code = UA RBC) 0-5 0-5 UA Bacteria (test code = UA Moderate A Bacteria) UA Squam Epithelial (test code = UA TNTC A Squam Epithelial) UA Mucous (test code = UA Mucous) Few A Urinalysis with Microscopic if [id number] 14:42:58 Test Item Value Reference Range Interpretation [...] GL_SJM_UA_MICRO _IN D Complete Blood Count with Stcqosipvfst2020-99-30 14:37:26 Test Item Value Reference Range Interpretation [...] code = IPF) 0 % N Automated [id number] 14:37:26 Test Item Value Reference Range Interpretation Comments Neutro Auto (test code = Neutro 65.8 % 36.0-70.0 Auto) Lymph Auto (test code = Lymph Auto) 25.5 % 12.0-44.0 Attala Auto (test code = Attala Auto) 7.3 % 0.0-11.0 Eos, Auto (test code = Eos, Auto) 0.7 % 0.0-7.0 Basophil Auto (test code = Basophil 0.5 % 0.0-2.0 Auto) Neutro Absolute (test code = Neutro 6.0 x10 1.6-7.4 Absolute) Lymph Absolute (test code = Lymph 2.34 x10 .50-4.60 Absolute) Attala Absolute (test code = Attala .67 x10 .00-1.20 Absolute) Eos Absolute (test code = Eos 0.06 x10 0.00-0.74 Absolute) Baso Absolute (test code = Baso 0.05 x10 0.00-0.21 Absolute) IG [id number] 14:37:26 Test Item Value Reference Range Interpretation Comments IG (test code = IG) 0.2 % 0.0-5.0 IG Abs (test code = IG Abs) 0 x10 N HCG Qualitative [id number] 14:34:08 Test Item Value Reference Range Interpretation [...] 72 hours. Lot # (test code = [id number] N Lot #) Expiration Dt (test 2020-03-14 N code = Expiration Dt) Neg Control (test Negative code = Neg Control) Pos Control (test Positive code = Pos Control) Internal QC (test Acceptable code = Internal QC) DRUGS OF ABUSE SCREEN [id number] 17:11:00 Test Item Value Reference Range Interpretation [...] = [place]) concentrati on: 300 ng/mL URINALYSIS [id number] 17:08:00 Test Item Value Reference Range Interpretation [...] (test code = MOD NONE BACU) URINALYSIS [id number] 17:00:00 Test Item Value Reference Range Interpretation [...] (test code = NONE BACU) HCG SERUM [id number] 16:52:00 Test Item Value Reference Range Interpretation Comments HCG SERUM QUAL (test code = HCGQL) NEGATIVE NEGATIVE - CT HEAD/BRAIN W/O [id number] 16:51:00 FAX: Theresa Fields MD [place]: St: REG Name: HEATHER HOPE [facility] : 1990 Age/S: 28/F [address] [facility] Unit: [id number] [place]: [place]: [place] [id number] Acct: [id number] Dis Date: Status: REG ER PHONE #: [phone] Exam Date: 02/23/2019 1642 FAX #: [phone] Reason: SEIZURE EXAMS: CPT CODE: [id number] CT HEAD/BRAIN W/O CONT 41622 Dictation location: U19. CT HEAD WITHOUT CONTRAST. [...] (1651) t.GAVIOTAR.SP17 Orig Print D/T: S: 02/23/2019 (8554 PAGE 1 Signed ReportBASIC METABOLIC [id number] 16:31:00 Test Item Value Reference Range Interpretation [...] CA) 8.8 mg/dl 8.0-10.5 N BASIC METABOLIC [id number] 16:26:00 Test Item Value Reference Range Interpretation [...] code = CA) mg/dl 8.0-10.5 CBC W/AUTO [id number] 16:15:00 Test Item Value Reference Range Interpretation [...] 3-60 N code = VLDL) RAPID PLASMA [id number] 10:31:00 Test Item Value Reference Range Interpretation Comments RAPID PLASMA REAGIN (test code = Nonreactive Nonreactive RPR) GLYCOSYLATED HEMOGLOBIN (HA1C)2018-12-07 10:05:00 Test Item Value Reference Range Interpretation Comments GLYCOSYLATED HEMOGLOBIN (HA1C) 5.8 % TOT HB 4.5-6.2 N (test code = GLYHGB) [id number] 15:31:00 Test Item Value Reference Range Interpretation Comments ACETAMINOPHEN (test < 1 MCG/ML 10-30 L Acetamin ophen is code = ACET) possibly toxic at levels of: 1. m ore than 150 MCG/ML 4 hours post kaylin stion. 2. more than 5 0 MCG/ML 12 hours post ingestion. [id number] 15:31:00 Test Item Value Reference Range Interpretation Comments SALICYLATE (test code = < 3 MG/DL 0-20 N Refe rence Range: BOSSMAN) Analgesic...... ...... ...... < 10 mg /dl Therapeutic.... ...... ...... 15-20 mg /dl Mild Toxicity....... ...... . > 30 mg/dl Severe Toxicity....... ..... > 60 mg/dl UA RFLX [id number] 14:18:00 Test Item Value Reference Range Interpretation [...] Clean Catch (test code = UASPEC) UA [id number] 14:18:00 Test Item Value Reference Range Interpretation Comments UA WBC (test code = WBCU) < 10 #/hpf <10 UA RBC (test code = RBCU) 0-2 #/hpf NONE SEEN A UA BACTERIA (test code = BACU) RARE #/hpf NONE SEEN UA SQUAMOUS CELLS (test code = 0 - 20 #/lpf <100 SQU) UA MUCUS (test code = MUCU) 1+ #/lpf NONE SEEN BASIC METABOLIC [id number] 14:16:00 Test Item Value Reference Range Interpretation [...] 9.4 MG/DL 8.7-10.5 N CA) HEPATIC FUNCTION [id number] 14:16:00 Test Item Value Reference Range Interpretation [...] 50-136 N TOTAL (test code = ALKP) [id number] 14:16:00 Test Item Value Reference Range Interpretation Comments CK (test code = CKT) 87 Units/L 26-192 N [id number] 14:16:00 Test Item Value Reference Range Interpretation Comments ALCOHOL (test code = < 3 MG/DL 0-10 N 0 - 10: Should be ALC) interpreted as NEGATIVE. 11 - 50: None to mild euphoria. 51 - 100: Mild influence on vision and dark adapta tion. > 80: Legal intoxication; D epression of SHIFT LEADER; Increasing degr ee of poisoning. > 400: Fatalities repo rted. Results are for medical purposes only a nd not forlegal or emp loyment evaluative purp oses. BASIC METABOLIC [id number] 14:09:00 Test Item Value Reference Range Interpretation [...] 9.4 MG/DL 8.7-10.5 N CA) HEPATIC FUNCTION [id number] 14:09:00 Test Item Value Reference Range Interpretation [...] TOTAL (test Units/L 50-136 code = ALKP) [id number] 14:09:00 Test Item Value Reference Range Interpretation Comments CK (test code = CKT) Units/L 26-192 [id number] 14:09:00 Test Item Value Reference Range Interpretation Comments ALCOHOL (test code = ALC) MG/DL 0-10 LACTIC ACID [id number] 13:50:00 Test Item Value Reference Range Interpretation Comments LACTIC ACID POC 0.97 MMOL/L 0.90-1.70 N Performed by certified (test code = LACTP) leak operator paraffin plant at [facility] [id number] 13:48:00 Test Item Value Reference Range Interpretation Comments GLUBED (test code = 88 MG/DL 65-99 N Performe d by certified GLUBED) [facility] DRUG OF ABUSE SCREEN [id number] 13:43:00 Test Item Value Reference Interpretation Comments [...] or infa nt custody issues. Negativ e [place] Level ng/ml ------- ----- Cocaine 300 Methamp hetamine (Ecstacy) 500 Cannabinoids (THC) 50 Amphetamine 1000 Barbiturate s 200 Benzodia zepines 200 Opiat es 300 Ph encyclidine (PCP) 25 UR HCG [id number] 13:39:00 Test Item Value Reference Range Interpretation [...] using aquantitative h CG assay. UA RFLX [id number] 13:38:00 Test Item Value Reference Range Interpretation [...] Clean Catch (test code = UASPEC) UA [id number] 13:38:00 Test Item Value Reference Range Interpretation Comments UA WBC (test code = WBCU) #/hpf <10 UA RBC (test code = RBCU) #/hpf NONE SEEN UA SQUAMOUS CELLS (test code = SQU) #/lpf <100 UA RFLX [id number] 13:38:00 Test Item Value Reference Range Interpretation [...] Clean Catch (test code = UASPEC) UA [id number] 13:38:00 Test Item Value Reference Range Interpretation Comments UA WBC (test code = WBCU) #/hpf <10 UA RBC (test code = RBCU) #/hpf NONE SEEN UA SQUAMOUS CELLS (test code = SQU) #/lpf <100 CBC W/AUTO [id number] 13:26:00 Test Item Value Reference Range Interpretation [...] = BA#) 0.05 x10 3/uL 0.0-0.2 N [id number] 19:07:00 Test Item Value Reference Interpretation Comments Range LEVETIRACETAM 28.7 ug/mL 10.0-40.0 This test was developed and (test code = its performance LEVTAM) characteristics determined by [facility] Media. It has not been cleared orappro froylan by the Food and Drug Administration. Performed At: Lab[address] [id number] ra Larissa MENDOZA Ph:[phone] BASIC METABOLIC [id number] 04:58:00 Test Item Value Reference Range Interpretation [...] code = 8.9 MG/DL 8.7-10.5 N CA) [id number] 04:58:00 Test Item Value Reference Range Interpretation Comments MAGNESIUM (test code = MAG) 1.9 MG/DL 1.8-2.4 N CBC W/AUTO [id number] 04:08:00 Test Item Value Reference Range Interpretation [...] 0.0-0.2 N NRBC#) - MRI BRAIN W/O [id number] 13:51:00 Patient Name: HEATHER HOPE Unit No: [id number] EXAMS: CPT CODE: [id number] MRI BRAIN W/O CONTRAST [id number] Reason: sz INDICATION: Seizure COMPARISON: CT brain, [...] MD Technologist: Andre Self MRI Trscrpt Dt/ ([id number])AngeliqueDW6 Orig Print D/T: S: 09/17/2018 (2390) [facility] CntNAME: HEATHER HOPE NOVEMBER [address] PHYS: [place] [address] : 1990 AGE: 27 SEX: F LOC: D.D313 1 PHONE #: [phone] EXAM DATE: 09/17/2018 STATUS: ADM IN FAX #: RAD NO: DC Dt: PAGE 1 Signed [id number] 07:25:00 Test Item Value Reference Range Interpretation Comments PROLACTIN (test code = 24.6 ng/mL 4.8-23.3 H Perfo rmed At: HD PROLAC) [facility] [address] [id number] Sb Man MD Ph:[phone] UA RFLX MICROSCOPIC [id number] 19:02:00 Test Item Value Reference Range Interpretation [...] UACULT) URINE SOURCE: Clean CatchUA RFLX MICROSCOPIC [id number] 18:56:00 Test Item Value Reference Range Interpretation [...] (test code = UACULT) URINE SOURCE: Clean [id number] 15:56:00 Test Item Value Reference Range Interpretation Comments CK (test code = CKT) 34 Units/L 26-192 N BASIC METABOLIC [id number] 12:57:00 Test Item Value Reference Range Interpretation [...] code = 8.6 MG/DL 8.7-10.5 L CA) [id number] 12:57:00 Test Item Value Reference Range Interpretation Comments CK (test code = CKT) 32 Units/L 26-192 N CBC W/AUTO [id number] 12:33:00 Test Item Value Reference Range Interpretation [...] 3/uL 0.0-0.2 N NRBC#) TOTAL IRON BINDING [id number] 05:50:00 Test Item Value Reference Range Interpretation Comments SERUM IRON (test code = IRON) 17 MCG/DL 50-170 L TOTAL IRON BINDING CAPACITY (test 363 MCG/DL 280-400 N code = TIBC) IRON SATURATION (test code = 5 % 15-50 L FESAT) [id number] 05:50:00 Test Item Value Reference Range Interpretation Comments FERRITIN (test code = LULI) 11 NG/ML 3-105 N HEPATIC FUNCTION [id number] 05:32:00 Test Item Value Reference Range Interpretation [...] code = ALKP) - CT HEAD/BRAIN W/O [id number] 20:19:00 Patient Name: HEATHER HOPE Unit No: [id number] EXAMS: CPT CODE: [id number] CT HEAD/BRAIN W/O CONT [id number] Reason: seizure TECHNIQUE: Contiguous 5 mm images [...] Print D/T: S: 09/14/2018 (2021) CTDI: DLP: [facility] NAME: NADINE HOPEICA November [facility] PHYS: [place] [address] : 1990 AGE: 27 SEX: F LOC: D.NER PHONE#: [phone] EXAM DATE: 09/14/2018 STATUS: REG ER FAX #: RAD NO: DC Dt: PAGE 1 Signed Report- XR CHEST 1 [id number] 20:18:00 Patient Name: HEATHER HOPE [facility] Unit No: [id number] EXAMS: CPT CODE: [id number] XR CHEST 1 V 15565 Reason: screen for pneumonia FINDINGS: Single view ofthe chest shows normal heart size and pulmonary vasculature. The lungs are clear bilaterally. There is no focal infiltrate, pleural effusion or pneumothorax. IMPRESSION: No a cute cardiopulmonary findings at 2018 Reported and signed by: Lashell Jimenez MD CC: Keanu Vázquez MD; Cristiane Heath Technologist: Edel Cade CT Trscrpt Dt/ (2017)Tristan Orig PrintD/T: S: 09/14/2018 (2020) [facility] NAME: HEATHER HOPE November [facility] PHYS: [place] [address] : 1990 AGE: 27 SEX: F LOC: D.NER PHONE #: [phone] EXAM DATE: STATUS: REG ER FAX #: RAD NO: DC Dt: PAGE 1 Signed ReportHCG SERUM [id number] 20:04:00 Test Item Value Reference Range Interpretation [...] using aquantitative h CG assay. BASIC METABOLIC [id number] 19:51:00 Test Item Value Reference Range Interpretation [...] 9.3 MG/DL 8.7-10.5 N CA) CBC W/AUTO [id number] 19:46:00 Test Item Value Reference Range Interpretation [...] BA#) 0.05 x10 3/uL 0.0-0.2 N BLOOD [id number] 10:00:00 Test Item Value Reference Range Interpretation Comments CULTURE (BEAKER) (test No growth in 5 days code = 1095) HCG, QUANTITATIVE, [id number] 15:37:00 Test Item Value Reference Range Interpretation Comments GONADOTROPIN, CHORIONIC (HCG) 31039 mIU/mL 0-10 H QUANT (BEAKER) (test code = 649) Non- Females: <10 mIU/mL Females: Gestation Age Reference Range(mIU/mL) 0.2-1 Week 5-50 1-2 Weeks 50-500 2-3 Weeks 100-5,000 3-4Weeks 500-10,000 4-5 Weeks 1,000-50,000 5-6 Weeks 10,000-100,000 6-8 Weeks 15,000-200,000 2-3 Months 10,000-100,000COMPREHENSIVE METABOLIC [id number] 15:10:00 Test Item Value Reference Range Interpretation [...] PATIEN TS. CBC W/PLT COUNT & AUTO [id number] 14:53:00 Test Item Value Reference Range Interpretation [...] (test code = 2801) U/S, , FIRST [id number] 07:52:00Reason for exam:-> Reason for exam:->please include [...] 1 day. An embryonic pole is evident. [place]-rump length measures 0.63 cm, correlating with [...] of 7 weeks 3 days. Signed: Lashell Garridoeport Verified Date/Time: 05/17/2017 07:52:37 Reading Location: [address] Consult Reading Room PREGNANCY SCREEN, [id number] 05:28:00 Test Item Value Reference Range Interpretation Comments TEST URINE (BEAKER) (test Positive code = 583) MR, BRAIN, WITHOUT [id number] 18:54:00Reason for exam:->Stroke evaluationFINAL REPORT MRI brain [...] Verified Date/Time: 05/15/2017 18:54:11 Reading Location: [facility] Radiology Reading Room EEG AWAKE AND [id number] 12:08:00Reason for exam:->? nonconvulsive statusDATE OF TEST: 05/15/2017DATE OF REPORT 05/15/2017 ACC: [id number] EE Start time: 1034 Stop time: 1054 ICD-10: R56.9CPT Code: 66281LNKNVMS: 26 y/o woman with epilepsy found down [...] recordings.Marika Smith M.D.Neurophysiology FellowSwathi Harper M.D.Neurophysiology Attending [id number] 04:27:00 Test Item Value Reference Range Interpretation Comments PROCALCITONIN (BEAKER) (test code 0.17 ng/mL <0.05 H = 3036) SEPSIS RISK (ng/mL)Low: 0.05-0.50Intermediate: 0.51-2.00High: >=2.01BASIC METABOLIC [id number] 03:15:00 Test Item Value Reference Range Interpretation [...] (test 200 U/L 29-200 code = 380) [id number] 03:15:00 Test Item Value Reference Range Interpretation Comments PHOSPHORUS (BEAKER) (test code = 3.1 mg/dL 2.3-4.7 604) [id number] 03:15:00 Test Item Value Reference Range Interpretation Comments MAGNESIUM (BEAKER) (test code = 1.9 mg/dL 1.6-2.6 627) LACTIC ACID, VENOUS, WHOLE [id number] 03:09:00 Test Item Value Reference Range Interpretation Comments LACTATE BLOOD VENOUS (2) (BEAKER) 0.6 mmol/L 0.5-2.2 (test code = 2872) Effective 10/17/2015: Units/Reference Range ChangeNew: 0.5-2.2 mmol/L Previous: 5-20 mg/dLPROTHROMBIN TIME/[id number] 03:07:00 Test Item Value Reference Range Interpretation [...] = 2801) RAD, CHEST, 1 VIEW, NON [id number] 01:06:00Reason for exam:->possible infectionShould this be performed [...] Verified Date/Time: 05/15/2017 01:06:06 Reading Location: [address] Reading Room
[2020-09-28 20:01] LABS: Absolute Lymphocytes (CBC) 1.9 K/uL (0.7-4.9); Basophils % 0.8 % (0-1.3); Hematocrit 36.2 % (36.0-45.0); Lymphocytes % 24.5 % (15.3-44.8); MPV 8.2 fL (7.6-11.3); RBC Red Blood Cell Count 4.45 M/uL (3.86-4.86)
[2020-09-28 20:12] LABS: Protime INR 0.99
[2020-09-28 20:23] LABS: ALT/SGPT 17 U/L (12-78); AST/SGOT 12 U/L (15-37); Alkaline Phosphatase 68 U/L (45-117); BUN Blood Urea Nitrogen 9 mg/dL (7-18); Bicarbonate 27 mmol/L (21-32); Bilirubin Direct 0.1 mg/dL (0-0.2); Bilirubin Total 0.3 mg/dL (0.2-1.0); Glucose Level 86 mg/dL (74-106); Potassium 3.9 mmol/L (3.5-5.1); Protein, Total 7.4 g/dL (6.4-8.2); Sodium Level 140 mmol/L (136-145)
[2020-09-28 20:37] LABS: Barbiturates NEGATIVE (NEGATIVE); Benzodiazepines POSITIVE (NEGATIVE); Cocaine NEGATIVE (NEGATIVE); METHAMPHETAM NEGATIVE (NEGATIVE); Methadone NEGATIVE (NEGATIVE); Opiates NEGATIVE (NEGATIVE); Phencyclidine NEGATIVE (NEGATIVE); THC Cannibis NEGATIVE (NEGATIVE)
[2020-09-28 20:45] LABS: Urine Specific Gravity/Preg 1.025 (1.005-1.030)
[2020-09-28] MEDS ORDERED: LORazepam 2 MG/ML VIAL ONE (20:56)
[2020-09-28] MEDS ORDERED: NA CHLORIDE 0.9% 1,000 ML ONE (20:57)
[2020-09-28 21:33] LABS: Anisocytosis 1+; Blood Morphology Comment NOTED (NOT SEEN); Hypochromasia 1+; Macrocytosis 1+; Platelet Estimate ADEQ; White Blood Cell Scan OK (OK)
--- NOTE | 2020-09-28 21:48 | ER ---
Nurse's Notes [facility] Name: Heather Hope Age: 29 yrs Sex: Female : 1990 Arrival Date: 09/28/2020 Time: 18:47 Bed 13 Private MD: Diagnosis: Epilepsy, unspecified Presentation: 09/28 18:53 Chief complaint: Patient states: HX of seizure. Seizure today, has been increasing and ca1 have them for 4 - 5 days now. Reports taking seizure meds as prescribed. Denies fever. Coronavirus screen: Client denies travel out of the [place] in the last 14 days. At this time, the client does not indicate any symptoms associated with coronavirus-19. Ebola Screen: Patient negative for fever greater than or equal to 101.5 degrees Fahrenheit, and additional compatible Ebola Virus Disease symptoms Patient denies exposure to infectious person. Patient denies travel to an Ebola-affected area in the 21 days before illness onset. No symptoms or risks identified at this time. Initial Sepsis Screen: Does the patient meet any 2 criteria? No. Patient's initial sepsis screen is negative. Does the patient have a suspected source of infection? No. Patient's initial sepsis screen is negative. Risk Assessment: Do you want to hurt yourself or someone else? Patient reports no desire to harm self or others. Onset of symptoms was September 28, 2020. 18:53 Method Of Arrival: Wheelchair ca1 18:53 Acuity: DARLYN 3 ca1 DESK MONITOR: 18:57 [facility] 08/2020 ca1 Historical: - Allergies: 18:57 No Known Allergies; ca1 - Home Meds: 18:57 clobazam oral 10 mg oral 2.5 tab 2 times per day [Active]; ca1 - PMHx: 18:57 Anemia; Seizures; Depression; ca1 - PSHx: 18:57 None; ca1 - Immunization history:: Flu vaccine is not up to date. - Social history:: Smoking status: Patient denies any tobacco usage or history of. Screenin:45 Abuse screen: Denies threats or abuse. Denies injuries from another. Nutritional sf screening: No deficits noted. Tuberculosis screening: No symptoms or risk factors identified. Fall Risk Fall in past 12 months (25 points). Secondary diagnosis (15 points) seizures, IV access (20 points). Ambulatory Aid- None/Bed Rest/Nurse Assist (0 pts). Gait- Normal/Bed Rest/Wheelchair (0 pts) Mental Status- Oriented to own ability (0 pts). Total Green Fall Scale indicates High Risk Score (45 or more points). Fall prevention measures have been instituted. Side Rails Up X 2 Placed Close to Nursing Station Frequent Obs/Assessments Occuring. Assessment: 19:45 General: Appears in no apparent distress. comfortable, Behavior is calm, cooperative. sf Pain: Denies pain. Neuro: No deficits noted. Level of Consciousness is awake, alert, Oriented to person, place, time, situation. Cardiovascular: No deficits noted. Respiratory: No deficits noted. GI: No deficits noted. No signs and/or symptoms were reported involving the gastrointestinal system. : No deficits noted. No signs and/or symptoms were reported regarding the genitourinary system. Derm: No deficits noted. No signs and/or symptoms reported regarding the dermatologic system. Musculoskeletal: No deficits noted. No signs and/or symptoms reported regarding the musculoskeletal system. 21:00 Reassessment: Patient appears in no apparent distress at this time. No changes from sf previously documented assessment. Patient and/or family updated on plan of care and expected duration. Pain level reassessed. Patient is alert, oriented x 3, equal unlabored respirations, skin warm/dry/pink. 22:15 Reassessment: Patient appears in no apparent distress at this time. Patient and/or sf family updated on plan of care and expected duration. Pain level reassessed. Patient is alert, oriented x 3, equal unlabored respirations, skin warm/dry/pink. To room for discharge, patient states "I don't feel safe being discharged, I want to talk to the doctor and be transferred." Og Holt PA-C and CLAUDIA Gutiérrez charge notified. 22:53 Reassessment: Patient and/or family updated on plan of care and expected duration. Pain ea level reassessed. Patient is alert, oriented x 3, equal unlabored respirations, skin warm/dry/pink. Discharge instruction given to patient verbalized the understanding of instruction. Pt left ED ambulatory tolerating well. Pt mother awaiting in lobby to take pt home. Vital Signs: 18:53 BP 132 / 83; Pulse 100; Resp 16 S; Temp 98(TE); Pulse Ox 99% on R/A; Weight 72.57 kg ca1 (R); Height 5 ft. 3 in. (160.02 cm) (R); Pain 0/10; 22:11 BP 116 / 81; Pulse 89; Resp 16; Pulse Ox 99% ; sf 18:53 Body Mass Index 28.34 (72.57 kg, 160.02 cm) ca1 [place] Coma Score: 18:57 Eye Response: spontaneous(4). Verbal Response: oriented(5). Motor Response: obeys ca1 commands(6). Total: 15. ED Course: 18:47 Patient arrived in ED. am2 18:56 Triage completed. ca1 18:57 Arm band placed on right wrist. ca1 19:04 Bart Reese, CLAUDIA is Primary Nurse. sf 19:05 Patient has correct armband on for positive identification. Bed in low position. Call ca1 light in reach. Side rails up X2. Seizure precautions initiated. Pulse ox on. NIBP on. Door closed. Noise minimized. Lights dimmed. 19:20 Og Holt PA is PHCP. [facility] 19:20 Rambo Beck MD is Attending Physician. [facility] 19:50 Initial lab(s) drawn, by nc, sent to lab. Inserted saline lock: 20 gauge in right sf antecubital area, using aseptic technique. Blood collected. 20:50 Urine --Ancillary (enter results) Sent. [facility] 22:24 No provider procedures requiring assistance completed. sf 22:55 IV discontinued, intact, bleeding controlled, No redness/swelling at site. Pressure ea dressing applied. Administered Medications: 20:41 Drug: NS 0.9% 1000 ml Route: IV; Rate: 1 bolus; Site: right antecubital; sf 22:10 Follow up: Response: No adverse reaction; IV Status: Completed infusion; IV Intake: sf 1000ml 20:43 Drug: Ativan (LORazepam) 1 mg Route: IVP; Site: right antecubital; sf 22:10 Follow up: Response: No adverse reaction sf Intake: 22:10 IV: 1000ml; Total: 1000ml. sf Outcome: 21:48 Discharge ordered by . [facility] 22:55 Discharged to home ambulatory, with family. ea 22:55 Condition: stable 22:55 Discharge instructions given to patient, Instructed on discharge instructions, follow up and referral plans. Demonstrated understanding of instructions, follow-up care. 22:55 Patient left the ED. ea Signatures: Og Holt PA PA jmm Moreno, Amanda am2 Cammie Ramos RN RN Jannette Donis RN RN [facility] 4 Bart Reese RN RN sf
--- NOTE | 2020-09-28 21:48 | EDPHYS ---
Physician Documentation [facility] Name: Heather Hope Age: 29 yrs Sex: Female : 1990 Arrival Date: 09/28/2020 Time: 18:47 Bed 13 Private MD: ED Physician Rambo Beck HPI: 09/28 19:35 This 29 yrs old Female presents to ER via Wheelchair with complaints of jmm Probable Seizure. 19:35 The patient presents after having a single isolated seizure. Seizure onset: today. jmm Context: the seizure(s) was witnessed, by no one. Seizure Hx: Seizure medications:. This is a 29 year old female with a history of epilepsy that presents to the ED with complaints of increased frequency of seizures. Patient is taking a new medication and does not feel its working. Patient states no medicine has helped. . 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 - Social history:: Smoking status: Patient denies any tobacco usage or history of. ROS: 19:35 Constitutional: Negative for fever, chills, and weight loss, Cardiovascular: Negative jmm for chest pain, palpitations, and edema, Respiratory: Negative for shortness of breath, cough, wheezing, and pleuritic chest pain. 19:35 Neuro: Positive for seizure activity. 19:35 All other systems are negative. Exam: 19:35 Constitutional: This is a well developed, well nourished patient who is awake, alert, jmm and in no acute distress. Head/Face: atraumatic. Eyes: EOMI, no conjunctival erythema appreciated ENT: Moist Mucus Membranes Neck: Trachea midline, Supple Chest/axilla: Normal chest wall appearance and motion. Cardiovascular: Regular rate and rhythm. No edema appreciated Respiratory: Normal respirations, no respiratory distress appreciated Abdomen/GI: Non distended, soft Back: Normal ROM Skin: General appearance color normal MS/ Extremity: Moves all extremities, no obvious deformities appreciated, no edema noted to the lower extremities Neuro: Awake and alert, normal gait Psych: Behavior is normal, Mood is normal, Patient is cooperative and pleasant Vital Signs: 18:53 BP 132 / 83; Pulse 100; Resp 16 S; Temp 98(TE); Pulse Ox 99% on R/A; Weight 72.57 kg ca1 (R); Height 5 ft. 3 in. (160.02 cm) (R); Pain 0/10; 22:11 BP 116 / 81; Pulse 89; Resp 16; Pulse Ox 99% ; sf 18:53 Body Mass Index 28.34 (72.57 kg, 160.02 cm) ca1 [place] Coma Score: 18:57 Eye Response: spontaneous(4). Verbal Response: oriented(5). Motor Response: obeys ca1 commands(6). Total: 15. MDM: 19:35 Patient medically screened. [facility] 21:43 Data reviewed: vital signs, nurses notes. Counseling: I had a detailed discussion with [facility] the patient and/or guardian regarding: the historical points, exam findings, and any diagnostic results supporting the discharge/admit diagnosis, lab results, the need for outpatient follow up, to return to the emergency department if symptoms worsen or persist or if there are any questions or concerns that arise at home. 21:46 Data reviewed: lab test result(s). ED course: I discussed the patient with Neuro on [facility] call. Advised to continue medication and call Dr. Henley on Thursday. Patient is otherwise given strict return precautions. patient understood and agrees with the plan of care. . 09/28 19:35 Order name: Acetaminophen [facility] 09/28 19:35 Order name: Basic Metabolic Panel [facility] 09/28 19:35 Order name: CBC with Diff [facility] 09/28 19:35 Order name: ETOH Level [facility] 09/28 19:35 Order name: Hepatic Function; Complete Time: 20:35 [facility] 09/28 19:35 Order name: PT-INR; Complete Time: 20:20 [facility] 09/28 19:35 Order name: Ptt, Activated; Complete Time: 20:20 [facility] 09/28 19:35 Order name: Salicylate; Complete Time: 20:47 [facility] 09/28 19:35 Order name: Urine Drug Screen; Complete Time: 20:37 [facility] 09/28 19:36 Order name: Acetaminophen Level; Complete Time: 20:35 [facility] 09/28 19:36 Order name: Basic Metabolic Panel; Complete Time: 20:35 [facility] 09/28 19:36 Order name: CBC with Automated Diff; Complete Time: 21:35 [facility] 09/28 19:36 Order name: Alcohol Serum/Plasma; Complete Time: 20:35 [facility] 09/28 20:18 Order name: Urine --Ancillary (enter results) tt3 09/28 19:35 Order name: EKG; Complete Time: 19:36 [facility] 09/28 19:35 Order name: EKG - Nurse/Tech; Complete Time: 20:35 [facility] 09/28 19:35 Order name: IV Saline Lock; Complete Time: 20:35 [facility] 09/28 19:35 Order name: Labs collected and sent; Complete Time: 20:36 [facility] 09/28 19:35 Order name: Urine Dipstick-Ancillary (obtain specimen); Complete Time: 20:50 [facility] 09/28 20:19 Order name: Urine --Ancillary; Complete Time: 20:47 [facility] 09/28 21:33 Order name: CBC Smear Scan; Complete Time: 21:35 EDMS Administered Medications: 20:41 Drug: NS 0.9% 1000 ml Route: IV; Rate: 1 bolus; Site: right antecubital; sf 22:10 Follow up: Response: No adverse reaction; IV Status: Completed infusion; IV Intake: sf 1000ml 20:43 Drug: Ativan (LORazepam) 1 mg Route: IVP; Site: right antecubital; sf 22:10 Follow up: Response: No adverse reaction sf Disposition: 09/28/20 21:48 Discharged to Home. Impression: Epilepsy, unspecified. - Condition is Stable. - Discharge Instructions: Seizure, Adult. - Medication Reconciliation Form, Thank You Letter, Antibiotic Education, Prescription Opioid Use form. - Follow up: Private Physician; When: 1 - 2 days; Reason: Recheck today's complaints, Continuance of care, Re-evaluation by your physician. Addendum: 10/03/2020 10:11 Co-signature as Attending Physician, Rambo Beck MD I agree with the assessment and t w4 plan of care. Signatures: Dispatcher [employer] EDMS Og Holt PA PA jmm Antunez, Elena, RN RN Rambo Paiz MD MD tw4 Jannette Romero RN RN ca1 Bart Reese RN RN sf Corrections: (The following items were deleted from the chart) 09/28 19:58 19:35 Suicide Screening ([place]) ordered. juarez lp1 22:55 21:48 09/28/2020 21:48 Discharged to Home. Impression: Epilepsy, unspecified. Condition ea is Stable. Forms are Medication Reconciliation Form, Thank You Letter, Antibiotic Education, Prescription Opioid Use. Follow up: Private Physician; When: 1 - 2 days; Reason: Recheck today's complaints, Continuance of care, Re-evaluation by your physician. juarez
[2020-09-28 23:12] VITALS: O2SAT 99
[2020-09-28 23:17] VITALS: BP 116/81
[2020-09-28 23:25] VITALS: TEMP 97.9
[2020-10-03 16:20] LABS: Urine Blood NEGATIVE (Negative); Urine Glucose NEGATIVE (Negative); Urine Protein NEGATIVE (Negative); Urine Specific Gravity 1.025 (1.005-1.030)
== END 2020-09-28 22:55 | disposition home or self-care (01) ==
LOC: ER 18:46
DX: G40.909 Epilepsy, unspecified, not intractable, without status epilepticus (principal)
CPT/HCPCS: 96361; 93005; 85025; 80048; 36415; 80320; 80329 ×2; 81025; 85610; 80076; 80307 ×8; 85730; 96374; 99284; J7030; 81003

== ENCOUNTER 2020-10-17 12:23 | Inpatient (IN) | payer OTHER ==
--- OUTSIDE RECORDS SUMMARY | 2020-10-17 12:27 | XMS REPORT | Continuity of Care Document ---
:1990 Author Organization [facility] t Address [address] [place] [address] Care Team Providers Name Role Phone GAYE Attending Clinician Unavailable MOJGAN Attending Clinician Unavailable JASS Attending Clinician Unavailable Rickie TAYLOR, A Attending Clinician Unavailable ARYA Attending Clinician Unavailable Pavan Matos DO Attending Clinician Mayito Daily MD Attending Clinician LEO Attending Clinician Unavailable ROE Attending Clinician Unavailable TOYA Attending Clinician Unavailable ANTHONY Attending Clinician Unavailable KRISSY Attending Clinician Unavailable LIANA Attending Clinician Unavailable BRANDO RODAS Attending Clinician Unavailable ARYA Admitting Clinician Unavailable HOWARD Admitting Clinician Unavailable ALBERT Admitting Clinician Unavailable GAYE Admitting Clinician Unavailable Juliano DEJESUS Admitting Clinician Unavailable Payers Payer Name Policy Type Policy Number Effective Date Expiration Date S ource Problems Condition Condition Condition Status Onset Resolution Last Treating Co mments Source Name Details Category Date Date Treatment Clinician Date Hypokalemi Hypokalemi Disease Active 2016-[address] [facility] [place] Acute Acute Disease Active 2016-[address] [facility] encephalop encephalop 07-14 Marianna kes - athy athy 00:00: Medical 00 [place] Seizure Seizure Disease Active 2016-[address] [facility] disorder disorder 07-14 [facility] [place] Leukocytos Leukocytos Disease Active 2016-[address] is is 07-14 [facility] 00 [place] Less than Less than Disease Active 2016-[address] [facility] 8 weeks 8 weeks 07-14 [facility] gestation gestation 00:00: [facility] Allergies, Adverse Reactions, Alerts Allergy Allergy Status Severity Reaction(s) Onset Inactive Treating Comm ents Source Name Type Date Date Clinician No Known DA Active U [facility]23 [facility] 00:[facility]: d [facility] No Known DA Active U 2016-06 [facility] Allergie 07-08 [facility] 00:00: [address] Social History Social Habit Start Date Stop Date Quantity Comments Source Sex Assigned At [facility] Alcohol intake 2017-05-14 2017-05-14 Current [facility] - 00:00:00 00:00:00 non-drinker of Medical Ce nter alcohol (finding) Smoking Status Start Date Stop Date Source Never smoker [facility] Medications Ordered Filled Start Stop Current Ordering [...] Date/Time Type Type Clinicians Facility Department ID 2020-10-04 2020-10-04 Outpatient MARY HUIZAR [facility] [id number] [place] 00:00:00 00:00:00 548 Method i 2020-10-04 2020-10-04 Emergency MOJGAN, [facility] 064 [id number] [place] 00:00:00 00:00:00 POPPY 400 Method i 2020-09-26 2020-09-26 Outpatient MARILEE REGAN [facility] [id number] [place] 00:00:00 00:00:00 276 Method i 2020-09-19 2020-09-19 Transition ELVIA Damian [id number] 00:00:00 00:00:00 of Care Fanny BRASWELL [id number] [place] [id number] 2020-09-10 2020-09-13 Inpatient ARYA, [facility] 064 [id number] [place] 00:00:00 00:00:00 NASRA 937 Method i 2020-09-04 2020-09-04 Patient Carlo [facility] [id number] 00:00:00 00:00:00 Outreach Papo KIM [id number] [facility] [id number] [place] [id number] 2020-07-26 2020-07-26 [facility] Darvin Daily [id number] 09:42:44 23:59:00 Encounter Keiko [id number] [place] [id number] 2020-06-25 2020-06-29 Inpatient LEO, [facility] 064 [id number] [place] 00:00:00 00:00:00 MILA 804 Method i 2020-06-25 2020-06-25 [facility] [id number] [place] 00:00:00 00:00:00 RAY 444 Method i 2020-06-25 2020-06-25 [facility] [id number] [place] 00:00:00 00:00:00 RAY [address] 2020-06-22 2020-06-22 Outpatient MARILEE REGAN [facility] [id number] [place] 00:00:00 00:00:[address] 2020-06-18 2020-06-19 Emergency TOYA, [facility] 064 [id number] [place] 00:00:00 00:00:00 BEAU [address] 2020-05-15 2020-05-15 Outpatient MARILEE REGAN [facility] [id number] [place] 00:00:00 00:00:[address] 2020-05-02 2020-05-02 Emergency ANTHONY, [facility] [id number] [place] 00:00:00 00:00:00 DANIEL [address] 2020-04-26 2020-04-26 Outpatient ISIS HUIZART [facility] [id number] [place] 00:00:00 00:00:[address] 2020-04-04 2020-04-07 Inpatient KRISSY, [facility] 064 [id number] [place] 00:00:00 00:00:00 YAHYA [address] 2020-03-30 2020-03-30 Outpatient HUIZAR, MARY [facility] 033 [id number] [place] 00:00:00 00:00:[address] 2020-03-27 2020-03-27 Outpatient HUIZAR, MARY [facility] [id number] [place] 00:00:00 00:00:[address] 2020-03-12 2020-03-15 Inpatient HUIZAR, MARY [facility] 016 [id number] [place] 00:00:00 00:00:[address] 2020-02-16 2020-02-16 Outpatient HUIZAR, MARY [facility] [id number] [place] 00:00:00 00:00:[address] 2019-11-12 2019-11-15 Inpatient ADENWALA, [facility] [id number] [place] 00:00:00 00:00:00 REID [address] [...] = Expiration Dt) 06-14-2020 N Thyroid Stimulating [id number] 06:31:44 Test Item Value Reference Range Interpretation Comments TSH (test code = TSH) 3.830 mIU/mL 0.270-4.200 Lipid [id number] 06:24:40 Test Item Value Reference Range Interpretation Comments Cholesterol Total 152 mg/dL 0-200 RISK OF HE ART (test code = DISEASEPublishe d by Cholesterol Total) [employer] Laurel lyte Optimal Borderl ine [...] LDL/HDL Ratio=L DL Calc/HDL Chol Urine Drug [id number] 21:53:06 Test Item Value Reference Range Interpretation [...] if desired . Urinalysis with Culture, if [id number] 21:40:53 Test Item Value Reference Range Interpretation [...] Indicated Not Indicated Micro Ind?) Comprehensive Metabolic [id number] 21:34:15 Test Item Value Reference Range Interpretation [...] = A/G 1.6 ratio N Ratio) Alcohol [id number] 21:34:15 Test Item Value Reference Range Interpretation Comments Ethanol Level (test <0.00 g/dL 0.00-0.01 Intoxica vandana 0.080 g/dL code = Ethanol or more Level) Ethanol Inst (test <0 N code = Ethanol Inst) Comprehensive Metabolic [id number] 21:34:15 Test Item Value Reference Range Interpretation [...] National Kidney Foundation, http://nkdep.ni h.gov Comprehensive Metabolic [id number] 21:34:15 Test Item Value Reference Range Interpretation [...] Foundation, http://nkdep.ni h.gov Complete Blood Count with [id number] 21:15:24 Test Item Value Reference Range Interpretation [...] code = IPF) 0 % N Automated [id number] 21:15:24 Test Item Value Reference Range Interpretation Comments Neutro Auto (test code = Neutro 54.3 % 36.0-70.0 Auto) Lymph Auto (test code = Lymph Auto) 32.3 % 12.0-44.0 [place] Auto (test code = [place] Auto) 11.1 % 0.0-11.0 H Eos, Auto (test code = Eos, Auto) 1.3 % 0.0-7.0 Basophil Auto (test code = Basophil 0.7 % 0.0-2.0 Auto) Neutro Absolute (test code = Neutro 6.2 x10 1.6-7.4 Absolute) Lymph Absolute (test code = Lymph 3.71 x10 .50-4.60 Absolute) [place] Absolute (test code = [place] 1.28 x10 .00-1.20 H Absolute) Eos Absolute (test code = Eos 0.15 x10 0.00-0.74 Absolute) Baso Absolute (test code = Baso 0.08 x10 0.00-0.21 Absolute) IG [id number] 21:15:24 Test Item Value Reference Range Interpretation Comments IG (test code = IG) 0.3 % 0.0-5.0 IG Abs (test code = IG Abs) 0 x10 N HCG Qualitative [id number] 20:45:17 Test Item Value Reference Range Interpretation [...] 72 hours. Lot # (test code = [id number] N Lot #) Expiration Dt (test 2020-12-12 N code = Expiration Dt) Neg Control (test Negative code = Neg Control) Pos Control (test Positive code = Pos Control) Internal QC (test Acceptable code = Internal QC) RPR [id number] 12:07:58 Test Item Value Reference Range Interpretation [...] = 04-14-2020 N Expiration Dt) Thyroid Stimulating [id number] 07:59:52 Test Item Value Reference Range Interpretation Comments TSH (test code = TSH) 0.717 mIU/mL 0.270-4.200 Lipid [id number] 07:52:46 Test Item Value Reference Range Interpretation Comments Cholesterol Total 141 mg/dL 0-200 RISK OF HE ART (test code = DISEASEPublishe d by Cholesterol Total) [employer] Laurel lyte Optimal Borderl ine [...] LDL/HDL Ratio=L DL Calc/HDL Chol Urine Drug [id number] 15:27:40 Test Item Value Reference Range Interpretation [...] matory test if desired . Comprehensive Metabolic [id number] 15:15:20 Test Item Value Reference Range Interpretation [...] A/G 1.9 ratio N Ratio) Comprehensive Metabolic [id number] 15:15:20 Test Item Value Reference Range Interpretation [...] the National Kidney Foundation, http://nkdep.ni h.gov Alcohol [id number] 15:15:20 Test Item Value Reference Range Interpretation Comments Ethanol Level (test <0.00 g/dL 0.00-0.01 Intoxica vandana 0.080 g/dL code = Ethanol or more Level) Ethanol Inst (test <0 N code = Ethanol Inst) Comprehensive Metabolic [id number] 15:15:20 Test Item Value Reference Range Interpretation [...] ag e have not been validated by [facility] MDRD study and should be interpreted [...] ag e have not been validated by [facility] MDRD study and should be interpreted wit h caution. eGFR R esult Interpretation: eGFR > or = 60 is in the Normal RangeeGF R < 60 may mean kid shannan diseaseeGFR < 1 5 may mean kidney failure Rang es recommended by the National Kidney Foundation, http://nkdep.ni h.gov Urinalysis [id number] 15:11:20 Test Item Value Reference Range Interpretation Comments UA WBC (test code = UA WBC) 6-10 0-5 A UA RBC (test code = UA RBC) 0-5 0-5 UA Bacteria (test code = UA Moderate A Bacteria) UA Squam Epithelial (test code = UA TNTC A Squam Epithelial) UA Mucous (test code = UA Mucous) Few A Urinalysis with Microscopic if [id number] 14:42:58 Test Item Value Reference Range Interpretation [...] GL_SJM_UA_MICRO _IN D Complete Blood Count with [id number] 14:37:26 Test Item Value Reference Range Interpretation [...] code = IPF) 0 % N Automated [id number] 14:37:26 Test Item Value Reference Range Interpretation Comments Neutro Auto (test code = Neutro 65.8 % 36.0-70.0 Auto) Lymph Auto (test code = Lymph Auto) 25.5 % 12.0-44.0 [place] Auto (test code = [place] Auto) 7.3 % 0.0-11.0 Eos, Auto (test code = Eos, Auto) 0.7 % 0.0-7.0 Basophil Auto (test code = Basophil 0.5 % 0.0-2.0 Auto) Neutro Absolute (test code = Neutro 6.0 x10 1.6-7.4 Absolute) Lymph Absolute (test code = Lymph 2.34 x10 .50-4.60 Absolute) [place] Absolute (test code = [place] .67 x10 .00-1.20 Absolute) Eos Absolute (test code = Eos 0.06 x10 0.00-0.74 Absolute) Baso Absolute (test code = Baso 0.05 x10 0.00-0.21 Absolute) IG [id number] 14:37:26 Test Item Value Reference Range Interpretation Comments IG (test code = IG) 0.2 % 0.0-5.0 IG Abs (test code = IG Abs) 0 x10 N HCG Qualitative [id number] 14:34:08 Test Item Value Reference Range Interpretation [...] 72 hours. Lot # (test code = [id number] N Lot #) Expiration Dt (test 2020-03-14 N code = Expiration Dt) Neg Control (test Negative code = Neg Control) Pos Control (test Positive code = Pos Control) Internal QC (test Acceptable code = Internal QC) DRUGS OF ABUSE SCREEN [id number] 17:11:00 Test Item Value Reference Range Interpretation [...] = [place]) concentrati on: 300 ng/mL URINALYSIS [id number] 17:08:00 Test Item Value Reference Range Interpretation [...] (test code = MOD NONE BACU) URINALYSIS [id number] 17:00:00 Test Item Value Reference Range Interpretation [...] (test code = NONE BACU) HCG SERUM [id number] 16:52:00 Test Item Value Reference Range Interpretation Comments HCG SERUM QUAL (test code = HCGQL) NEGATIVE NEGATIVE - CT HEAD/BRAIN W/O [id number] 16:51:00 FAX: Theresa Fields MD [place]: [address]: REG Name: SAHRA NETTLES [facility] : 1990 Age/S: 28/F [address] [facility] [employer] Unit: [id number] Loc: E.ULYSSES [place], [place]: [place] [address] Acct: [id number] Dis Date: Status: REG ER PHONE #: [phone] Exam Date: 02/23/2019 1642 FAX #: [phone] Reason: SEIZURE EXAMS: CPT CODE: [id number] CT HEAD/BRAIN W/O CONT 09631 Dictation location: U19. CT HEAD WITHOUT CONTRAST. [...] MD Technologist: SAHRA DICKSON Trnscrd Dt/Tm: 02/23/2019 (1531) [email or web address] Orig Print D/T: S: 02/23/2019 (5074 PAGE 1 Signed ReportBASIC METABOLIC [id number] 16:31:00 Test Item Value Reference Range Interpretation [...] CA) 8.8 mg/dl 8.0-10.5 N BASIC METABOLIC [id number] 16:26:00 Test Item Value Reference Range Interpretation [...] code = CA) mg/dl 8.0-10.5 CBC W/AUTO [id number] 16:15:00 Test Item Value Reference Range Interpretation [...] 3-60 N code = VLDL) RAPID PLASMA [id number] 10:31:00 Test Item Value Reference Range Interpretation Comments RAPID PLASMA REAGIN (test code = Nonreactive Nonreactive RPR) GLYCOSYLATED HEMOGLOBIN (HA1C)2018-12-07 10:05:00 Test Item Value Reference Range Interpretation Comments GLYCOSYLATED HEMOGLOBIN (HA1C) 5.8 % TOT HB 4.5-6.2 N (test code = GLYHGB) [id number] 15:31:00 Test Item Value Reference Range Interpretation Comments ACETAMINOPHEN (test < 1 MCG/ML 10-30 L Acetamin ophen is code = ACET) possibly toxic at levels of: 1. m ore than 150 MCG/ML 4 hours post kaylin stion. 2. more than 5 0 MCG/ML 12 hours post ingestion. [id number] 15:31:00 Test Item Value Reference Range Interpretation Comments SALICYLATE (test code = < 3 MG/DL 0-20 N Refe rence Range: BOSSMAN) Analgesic...... ...... ...... < 10 mg /dl Therapeutic.... ...... ...... 15-20 mg /dl Mild Toxicity....... ...... . > 30 mg/dl Severe Toxicity....... ..... > 60 mg/dl UA RFLX [id number] 14:18:00 Test Item Value Reference Range Interpretation [...] Clean Catch (test code = UASPEC) UA [id number] 14:18:00 Test Item Value Reference Range Interpretation Comments UA WBC (test code = WBCU) < 10 #/hpf <10 UA RBC (test code = RBCU) 0-2 #/hpf NONE SEEN A UA BACTERIA (test code = BACU) RARE #/hpf NONE SEEN UA SQUAMOUS CELLS (test code = 0 - 20 #/lpf <100 SQU) UA MUCUS (test code = MUCU) 1+ #/lpf NONE SEEN BASIC METABOLIC [id number] 14:16:00 Test Item Value Reference Range Interpretation [...] 9.4 MG/DL 8.7-10.5 N CA) HEPATIC FUNCTION [id number] 14:16:00 Test Item Value Reference Range Interpretation [...] 50-136 N TOTAL (test code = ALKP) [id number] 14:16:00 Test Item Value Reference Range Interpretation Comments CK (test code = CKT) 87 Units/L 26-192 N [id number] 14:16:00 Test Item Value Reference Range Interpretation Comments ALCOHOL (test code = < 3 MG/DL 0-10 N 0 - 10: Should be ALC) interpreted as NEGATIVE. 11 - 50: None to mild euphoria. 51 - 100: Mild influence on vision and dark adapta tion. > 80: Legal intoxication; D epression of [employer]; Increasing degr ee of poisoning. > 400: Fatalities repo rted. Results are for medical purposes only a nd not forlegal or emp loyment evaluative purp oses. BASIC METABOLIC [id number] 14:09:00 Test Item Value Reference Range Interpretation [...] 9.4 MG/DL 8.7-10.5 N CA) HEPATIC FUNCTION [id number] 14:09:00 Test Item Value Reference Range Interpretation [...] TOTAL (test Units/L 50-136 code = ALKP) [id number] 14:09:00 Test Item Value Reference Range Interpretation Comments CK (test code = CKT) Units/L 26-192 [id number] 14:09:00 Test Item Value Reference Range Interpretation Comments ALCOHOL (test code = ALC) MG/DL 0-10 LACTIC ACID [id number] 13:50:00 Test Item Value Reference Range Interpretation Comments LACTIC ACID POC 0.97 MMOL/L 0.90-1.70 N Performed by certified (test code = LACTP) needle loom operator at [facility] [id number] 13:48:00 Test Item Value Reference Range Interpretation Comments GLUBED (test code = 88 MG/DL 65-99 N Performe d by certified GLUBED) needle loom operator at [facility] DRUG OF ABUSE SCREEN [id number] 13:43:00 Test Item Value Reference Interpretation Comments [...] or infa nt custody issues. Negativ e [place] Level ng/ml ------- ----- Cocaine 300 Methamp hetamine (Ecstacy) 500 Cannabinoids (THC) 50 Amphetamine 1000 Barbiturate s 200 Benzodia zepines 200 Opiat es 300 Ph encyclidine (PCP) 25 UR HCG [id number] 13:39:00 Test Item Value Reference Range Interpretation [...] using aquantitative h CG assay. UA RFLX [id number] 13:38:00 Test Item Value Reference Range Interpretation [...] Clean Catch (test code = UASPEC) UA [id number] 13:38:00 Test Item Value Reference Range Interpretation Comments UA WBC (test code = WBCU) #/hpf <10 UA RBC (test code = RBCU) #/hpf NONE SEEN UA SQUAMOUS CELLS (test code = SQU) #/lpf <100 UA RFLX [id number] 13:38:00 Test Item Value Reference Range Interpretation [...] Clean Catch (test code = UASPEC) UA [id number] 13:38:00 Test Item Value Reference Range Interpretation Comments UA WBC (test code = WBCU) #/hpf <10 UA RBC (test code = RBCU) #/hpf NONE SEEN UA SQUAMOUS CELLS (test code = SQU) #/lpf <100 CBC W/AUTO [id number] 13:26:00 Test Item Value Reference Range Interpretation [...] = BA#) 0.05 x10 3/uL 0.0-0.2 N [id number] 19:07:00 Test Item Value Reference Interpretation Comments Range LEVETIRACETAM 28.7 ug/mL 10.0-40.0 This test was developed and (test code = its performance LEVTAM) characteristics determined by [facility]. It has not been cleared orappro froylan by the Food and Drug Administration. Performed At: [facility] [address] [facility] [place], [place] [id number] ra Larissa MENDOZA Ph:[phone] BASIC METABOLIC [id number] 04:58:00 Test Item Value Reference Range Interpretation [...] code = 8.9 MG/DL 8.7-10.5 N CA) [id number] 04:58:00 Test Item Value Reference Range Interpretation Comments MAGNESIUM (test code = MAG) 1.9 MG/DL 1.8-2.4 N CBC W/AUTO [id number] 04:08:00 Test Item Value Reference Range Interpretation [...] 0.0-0.2 N NRBC#) - MRI BRAIN W/O [id number] 13:51:00 Patient Name: SAHRA NETTLES Unit No: [id number] EXAMS: CPT CODE: [id number] MRI BRAIN W/O CONTRAST 91426 Reason: sz INDICATION: Seizure COMPARISON: CT brain, [...] MD Technologist: Andre Self MRI Trscrpt Dt/ (3166)[id number].[email or web address].DW6 Orig Print D/T: S: 09/17/2018 (0598) [facility] CntNAME: SAHRA NETTLES NOVEMBER [address] PHYS: [place] [address] : 1990 AGE: 27 SEX: F LOC: D.D313 1 PHONE #: [phone] EXAM DATE: 09/17/2018 STATUS: ADM IN FAX #: RAD NO: DC Dt: PAGE 1 Signed [id number] 07:25:00 Test Item Value Reference Range Interpretation Comments PROLACTIN (test code = 24.6 ng/mL 4.8-23.3 H Perfo rmed At: HD PROLAC) [facility] [address] [id number] Sb Man MD Ph:[phone] UA RFLX MICROSCOPIC [id number] 19:02:00 Test Item Value Reference Range Interpretation [...] UACULT) URINE SOURCE: Clean CatchUA RFLX MICROSCOPIC [id number] 18:56:00 Test Item Value Reference Range Interpretation [...] (test code = UACULT) URINE SOURCE: Clean [id number] 15:56:00 Test Item Value Reference Range Interpretation Comments CK (test code = CKT) 34 Units/L 26-192 N BASIC METABOLIC [id number] 12:57:00 Test Item Value Reference Range Interpretation [...] code = 8.6 MG/DL 8.7-10.5 L CA) [id number] 12:57:00 Test Item Value Reference Range Interpretation Comments CK (test code = CKT) 32 Units/L 26-192 N CBC W/AUTO [id number] 12:33:00 Test Item Value Reference Range Interpretation [...] 3/uL 0.0-0.2 N NRBC#) TOTAL IRON BINDING [id number] 05:50:00 Test Item Value Reference Range Interpretation Comments SERUM IRON (test code = IRON) 17 MCG/DL 50-170 L TOTAL IRON BINDING CAPACITY (test 363 MCG/DL 280-400 N code = TIBC) IRON SATURATION (test code = 5 % 15-50 L FESAT) [id number] 05:50:00 Test Item Value Reference Range Interpretation Comments FERRITIN (test code = LULI) 11 NG/ML 3-105 N HEPATIC FUNCTION [id number] 05:32:00 Test Item Value Reference Range Interpretation [...] code = ALKP) - CT HEAD/BRAIN W/O [id number] 20:19:00 Patient Name: SAHRA NETTLES Unit No: [id number] EXAMS: CPT CODE: [id number] CT HEAD/BRAIN W/O CONT 21155 Reason: seizure TECHNIQUE: Contiguous 5 mm images [...] Print D/T: S: 09/14/2018 (2021) CTDI: DLP: [facility] NAME: SAHRA NETTLES [address] PHYS: NGA.01 - Keanu Váz[place] [address] : 1990 AGE: 27 SEX: F LOC: MATT PHONE#: [phone] EXAM DATE: 09/14/2018 STATUS: REG ER FAX #: RAD NO: DC Dt: PAGE 1 Signed Report- XR CHEST 1 [id number] 20:18:00 Patient Name: SAHRA NETTLES TIERRA Unit No: [id number] EXAMS: CPT CODE: [id number] XR CHEST 1 V 36607 Reason: screen for pneumonia FINDINGS: Single view ofthe chest shows normal heart size and pulmonary vasculature. The lungs are clear bilaterally. There is no focal infiltrate, pleural effusion or pneumothorax. IMPRESSION: No a cute cardiopulmonary findings at 2018 Reported and signed by: Lashell Jimenez MD CC: Keanu Vázquez MD; Cristiane Heath Technologist: Edel Cade CT Trscrpt Dt/ (2017)[email or web address].[id number].[id number] Orig PrintD/T: S: 09/14/2018 (2020) [facility] NAME: SAHRA NETTLES NOVEMBER [address] [facility] PHYS: WONGSAVANAH. - Keanu Váz[place] [address] : 1990 AGE: 27 SEX: F LOC: D.KIN PHONE #: [phone] EXAM DATE: STATUS: REG ER FAX #: RAD NO: DC Dt: PAGE 1 Signed ReportHCG SERUM [id number] 20:04:00 Test Item Value Reference Range Interpretation [...] using aquantitative h CG assay. BASIC METABOLIC [id number] 19:51:00 Test Item Value Reference Range Interpretation [...] 9.3 MG/DL 8.7-10.5 N CA) CBC W/AUTO [id number] 19:46:00 Test Item Value Reference Range Interpretation [...] BA#) 0.05 x10 3/uL 0.0-0.2 N BLOOD [id number] 10:00:00 Test Item Value Reference Range Interpretation Comments CULTURE (BEAKER) (test No growth in 5 days code = 1095) HCG, QUANTITATIVE, [id number] 15:37:00 Test Item Value Reference Range Interpretation Comments GONADOTROPIN, CHORIONIC (HCG) 16353 mIU/mL 0-10 H QUANT (BEAKER) (test code = 649) Non- Females: <10 mIU/mL Females: Gestation Age Reference Range(mIU/mL) 0.2-1 Week 5-50 1-2 Weeks 50-500 2-3 Weeks 100-5,000 3-4Weeks 500-10,000 4-5 Weeks 1,000-50,000 5-6 Weeks 10,000-100,000 6-8 Weeks 15,000-200,000 2-3 Months 10,000-100,000COMPREHENSIVE METABOLIC [id number] 15:10:00 Test Item Value Reference Range Interpretation [...] PATIEN TS. CBC W/PLT COUNT & AUTO [id number] 14:53:00 Test Item Value Reference Range Interpretation [...] (test code = 2801) U/S, , FIRST [id number] 07:52:00Reason for exam:-> Reason for exam:->please include [...] 1 day. An embryonic pole is evident. [place]-rump length measures 0.63 cm, correlating with estimated [...] Garrido Verified Date/Time: 05/17/2017 07:52:37 Reading Location: [facility] C013X Ortho Consult Reading Room PREGNANCY SCREEN, [id number] 05:28:00 Test Item Value Reference Range Interpretation Comments TEST URINE (BEAKER) (test Positive code = 583) MR, BRAIN, WITHOUT [id number] 18:54:00Reason for exam:->Stroke evaluationFINAL REPORT MRI brain [...] Parra Verified Date/Time: 05/15/2017 18:54:11 Reading Location: [facility] Radiology Reading Room EEG AWAKE AND [id number] 12:08:00Reason for exam:->? nonconvulsive statusDATE OF TEST: 05/15/2017DATE OF REPORT 05/15/2017 ACC: [id number] EE Start time: 1034 Stop time: 1054 ICD-10: R56.9CPT Code: 43318PIQCMYI: 26 y/o woman with epilepsy found down [...] recordings.Marika Smith M.D.Neurophysiology FellowSwathi Harper M.D.Neurophysiology Attending [id number] 04:27:00 Test Item Value Reference Range Interpretation Comments PROCALCITONIN (BEAKER) (test code 0.17 ng/mL <0.05 H = 3036) SEPSIS RISK (ng/mL)Low: 0.05-0.50Intermediate: 0.51-2.00High: >=[id number] 03:15:00 Test Item Value Reference Range Interpretation Comments PHOSPHORUS (BEAKER) (test code = 3.1 mg/dL 2.3-4.7 604) [id number] 03:15:00 Test Item Value Reference Range Interpretation Comments MAGNESIUM (BEAKER) (test code = 1.9 mg/dL 1.6-2.6 627) BASIC METABOLIC [id number] 03:15:00 Test Item Value Reference Range Interpretation [...] code = 380) LACTIC ACID, VENOUS, WHOLE [id number] 03:09:00 Test Item Value Reference Range Interpretation Comments LACTATE BLOOD VENOUS (2) (BEAKER) 0.6 mmol/L 0.5-2.2 (test code = 2872) Effective 10/17/2015: Units/Reference Range ChangeNew: 0.5-2.2 mmol/L Previous: 5-20 mg/dLPROTHROMBIN [id number] 03:07:00 Test Item Value Reference Range Interpretation [...] = 2801) RAD, CHEST, 1 VIEW, NON [id number] 01:06:00Reason for exam:->possible infectionShould this be performed [...] Verified Date/Time: 05/15/2017 01:06:06 Reading Location: [address] Reading Room
[2020-10-17] MEDS ORDERED: ONDANSETRON 4 MG/2 ML VIAL ONE (15:55)
[2020-10-17] MEDS ORDERED: MECLIZINE HCL 12.5 MG TAB ONE (15:55)
[2020-10-17] MEDS ORDERED: FAMOTIDINE 20 MG/2 ML VIAL IV ONE (15:55)
[2020-10-17] MEDS ORDERED: NA CHLORIDE 0.9% 1,000 ML ONE (15:55)
[2020-10-17 17:19] LABS: Absolute Lymphocytes (CBC) 2.6 K/uL (0.7-4.9); Basophils % 0.8 % (0-1.3); Hematocrit 35.9 % (36.0-45.0); MPV 7.7 fL (7.6-11.3); RBC Red Blood Cell Count 4.26 M/uL (3.86-4.86)
[2020-10-17 17:56] LABS: ALT/SGPT 20 U/L (12-78); AST/SGOT 16 U/L (15-37); Albumin 3.8 g/dL (3.4-5.0); Alkaline Phosphatase 64 U/L (45-117); BUN Blood Urea Nitrogen 9 mg/dL (7-18); Bicarbonate 28 mmol/L (21-32); Bilirubin Direct < 0.1 mg/dL (0-0.2); Bilirubin Total 0.1 mg/dL (0.2-1.0); Glucose Level 95 mg/dL (74-106); Lipase 67 U/L (73-393); Magnesium 1.9 mg/dL (1.8-2.4); Potassium 3.9 mmol/L (3.5-5.1); Protein, Total 7.1 g/dL (6.4-8.2); Sodium Level 139 mmol/L (136-145)
[2020-10-17 18:27] LABS: Phenytoin (Dilantin) Level 44.1 ug/mL (10.0-20.0)
[2020-10-17 19:58] LABS: Urine Blood Negative (Negative); Urine Glucose Negative (Negative); Urine Protein Negative (Negative); Urine Specific Gravity 1.025 (1.005-1.030)
--- NOTE | 2020-10-17 19:58 | ER ---
Nurse's Notes [facility] Name: Heather Hope Age: 29 yrs Sex: Female : 1990 Arrival Date: 10/17/2020 Time: 12:25 Bed 16 Private MD: Diagnosis: Poisoning by hydantoin derivatives, accidental (unintentional) Presentation: 10/17 12:47 Chief complaint: Patient states: Dizziness, blurring of vision, N/V x 3 - 4 days. ca1 Coronavirus screen: Client denies travel out of the [place] in the last 14 days. nausea, Client presents with at least one sign or symptom that may indicate coronavirus-19. Standard/surgical mask placed on the client. Provider contacted for isolation considerations. Ebola Screen: Patient negative for fever greater than or equal to 101.5 degrees Fahrenheit, and additional compatible Ebola Virus Disease symptoms Patient denies exposure to infectious person. Patient denies travel to an Ebola-affected area in the 21 days before illness onset. No symptoms or risks identified at this time. Initial Sepsis Screen: Does the patient meet any 2 criteria? No. Patient's initial sepsis screen is negative. Does the patient have a suspected source of infection? No. Patient's initial sepsis screen is negative. Risk Assessment: Do you want to hurt yourself or someone else? Patient reports no desire to harm self or others. Onset of symptoms was October 17, 2020. 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 Flu vaccine is not up to date. - Social history:: Smoking status: Patient denies any tobacco usage or history of. Screenin:32 Abuse screen: Denies threats or abuse. Nutritional screening: No deficits noted. bb Tuberculosis screening: No symptoms or risk factors identified. Fall Risk Secondary diagnosis (15 points) dizziness. IV access (20 points). Gait- Impaired (20 pts.). Mental Status- Overestimates/Forgets Limitations (15 pts.). Total Green Fall Scale indicates High Risk Score (45 or more points). Fall prevention measures have been instituted. Side Rails Up X 2 As available patient and family educated on Fall Prevention Program and Strategies. Assessment: 14:30 General: Appears comfortable, Behavior is calm, cooperative, appropriate for age, ap3 drowsy. Pain: Denies pain. Neuro: Level of Consciousness is awake, alert, obeys commands, Oriented to person, place, time, situation. Cardiovascular: Capillary refill. Respiratory: Airway is patent Respiratory effort is even, Respiratory pattern is regular, symmetrical. GI: Abdomen is round Abd is soft and non tender Reports nausea. : No signs and/or symptoms were reported regarding the genitourinary system. EENT: No signs and/or symptoms were reported regarding the EENT system. Derm:. 19:31 Reassessment: Patient is alert, oriented x 3, equal unlabored respirations, skin bb warm/dry/pink. pt denies pain at this time states she is feeling better. 20:02 Reassessment: Allan Hall DIGITAL RESEARCH ANALYST at bedside for discussion of admission. bb 21:38 Reassessment: Patient is alert, oriented x 3, equal unlabored respirations, skin bb warm/dry/pink. pt ambulated with steady gait to the bathroom, awaiting room assignment. 22:20 Reassessment: pt appears to be sleeping, eyes closed, resp unlabored, awaiting room bb assignment. 10/18 01:03 Reassessment: pt appears to be sleeping, eyes closed, resp unlabored, now admitted as bb ED hold. Vital Signs: 10/17 12:47 BP 113 / 67; Pulse 92; Resp 16 S; Temp 97.9(TE); Pulse Ox 99% on R/A; Weight 70.31 kg ca1 (R); Height 5 ft. 3 in. (160.02 cm) (R); 14:30 BP 118 / 82; Pulse 90; Pulse Ox 100% ; ap3 15:30 BP 119 / 80; Pulse 87; Pulse Ox 98% ; ap3 17:00 BP 121 / 85; Pulse 89; Pulse Ox 99% ; ap3 19:32 BP 112 / 78; Pulse 81; Resp 16 S; Pulse Ox 100% on R/A; Pain 0/10; bb 21:39 BP 127 / 82; Pulse 85; Resp 16 S; Pulse Ox 98% on R/A; bb 22:22 BP 114 / 79; Pulse 87; Resp 16 S; Pulse Ox 98% on R/A; bb 10/18 01:03 BP 110 / 69; Pulse 81; Resp 14 S; Pulse Ox 98% on R/A; bb 10/17 12:47 Body Mass Index 27.46 (70.31 kg, 160.02 cm) ca1 ED Course: 10/17 12:25 Patient arrived in ED. as 12:48 Triage completed. ca1 12:48 Arm band placed on right wrist. ca1 14:21 Steve Arreaga PA is PHCP. cp 14:21 Steve Lawrence MD is Attending Physician. cp 14:30 Arlene Lewis RN is Primary Nurse. ap3 17:00 Inserted saline lock: 20 gauge in right upper arm, using aseptic technique. ,using bp aseptic technique. MIDLINE Blood collected. 19:32 Patient has correct armband on for positive identification. Pulse ox on. NIBP on. bb 19:52 Allan Hall PA is Hospitalizing Provider. cp 20:02 Urine collected: clean catch specimen, clear. bb 20:29 Hospitalizing Provider role handed off by Allan Hall PA cp 20:29 Richrad Pisano MD is Hospitalizing Provider. cp 21:39 No provider procedures requiring assistance completed. Patient admitted, IV remains in bb place. Administered Medications: 15:43 Drug: Meclizine 25 mg Route: PO; ap3 16:42 Follow up: Response: No adverse reaction ap3 17:14 Drug: Zofran (Ondansetron) 4 mg Route: IVP; Site: right upper arm; ap3 20:01 Follow up: Response: No adverse reaction bb 17:14 Drug: Pepcid (famotidine) 20 mg Route: IVP; Site: right upper arm; ap3 20:01 Follow up: Response: No adverse reaction bb 17:15 Drug: NS 0.9% 1000 ml Route: IV; Rate: 1 bolus; Site: right upper arm; ap3 19:00 Follow up: IV Status: Completed infusion; IV Intake: 1000ml bb Intake: 19:00 IV: 1000ml; Total: 1000ml. bb Outcome: 19:57 Decision to Hospitalize by Provider. cp 20:03 Instructed on the need for admit. bb 21:39 Condition: stable bb 10/18 01:05 Admitted to ER Hold. Please see [facility] for further documentation. bb 09:31 Patient left the ED. ap3 Signatures: Codi Bianchi Brenda, RN RN bb Steve Arreaga PA PA cp Peltier, Brian, RN RN bp Arlene Lewis RN RN ap3 Jannette Romero RN RN ca1 Corrections: (The following items were deleted from the chart) 10/17 17:15 17:14 Inserted saline lock: 20 gauge in right upper arm, using aseptic technique. bp ,using aseptic technique. MIDLINE Blood collected. bp
--- NOTE | 2020-10-17 19:58 | EDPHYS ---
Physician Documentation [facility] Name: Heather Hope Age: 29 yrs Sex: Female : 1990 Arrival Date: 10/17/2020 Time: 12:25 Bed 16 Private MD: ED Physician Steve Lawrence HPI: 10/17 15:00 This 29 yrs old Female presents to ER via Ambulatory with complaints of cp Vomiting, Dizziness. 15:00 The patient presents to the emergency department with nausea, that is moderate, cp vomiting, that is intermittent. 15:00 Onset: The symptoms/episode began/occurred 4 day(s) ago. Possible causes: unknown. cp Associated signs and symptoms: Pertinent positives: dizziness, blurred vision, Pertinent negatives: constipation, diarrhea, fever. Severity of symptoms: in the emergency department the symptoms are unchanged despite home interventions. 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 Flu vaccine is not up to date. - Social history:: Smoking status: Patient denies any tobacco usage or history of. ROS: 15:05 Constitutional: Negative for body aches, chills, fever. cp 15:05 Eyes: Positive for blurry vision, Negative for vision loss. cp 15:05 ENT: Negative for ear pain, sore throat, difficulty swallowing, difficulty handling secretions. 15:05 Neck: Negative for pain with movement, pain at rest, stiffness. 15:05 Cardiovascular: Negative for chest pain, palpitations. 15:05 Respiratory: Negative for cough, shortness of breath, wheezing. 15:05 Abdomen/GI: Positive for nausea and vomiting, Negative for diarrhea, constipation, hematemesis, black/tarry stool, rectal bleeding. 15:05 Neuro: Positive for dizziness, Negative for altered mental status, seizure activity, speech changes, syncope, weakness. 15:05 All other systems are negative. Exam: 15:10 Constitutional: The patient appears in no acute distress, alert, awake, cp non-diaphoretic, non-toxic, well developed, well nourished. 15:10 Head/Face: Normocephalic, atraumatic. cp 15:10 Eyes: Periorbital structures: appear normal, Pupils: equal, round, and reactive to light and accomodation, Extraocular movements: intact throughout, Conjunctiva: normal, no exudate, no injection, Sclera: no appreciated abnormality, Lids and lashes: appear normal, bilaterally, Nystagmus: nystagmus with fast component noted, bilaterally. 15:10 ENT: External ear(s): are unremarkable, Ear canal(s): are normal, clear, TM's: dullness, bilaterally, Nose: is normal, Mouth: Lips: moist, Oral mucosa: pink and intact, moist, Posterior pharynx: Airway: no evidence of obstruction, patent. 15:10 Neck: ROM/movement: is normal, is supple, without pain, no range of motions limitations, no meningismus. 15:10 Chest/axilla: Inspection: normal, Palpation: is normal, no crepitus, no tenderness. 15:10 Cardiovascular: Rate: normal, Rhythm: regular. 15:10 Respiratory: the patient does not display signs of respiratory distress, Respirations: normal, no use of accessory muscles, no retractions, labored breathing, is not present, Breath sounds: are clear throughout, no decreased breath sounds. 15:10 Abdomen/GI: Inspection: abdomen appears normal, Bowel sounds: active, all quadrants, Palpation: abdomen is soft and non-tender, in all quadrants. 15:10 Back: pain, is absent, ROM is normal. 15:10 Neuro: Orientation: to person, place \\T\\ time. Mentation: is normal, Cerebellar function: Romberg testing is negative, Motor: moves all fours, strength is normal, Sensation: is normal. 16:25 ECG was reviewed by the Attending Physician. cp Vital Signs: 12:47 BP 113 / 67; Pulse 92; Resp 16 S; Temp 97.9(TE); Pulse Ox 99% on R/A; Weight 70.31 kg ca1 (R); Height 5 ft. 3 in. (160.02 cm) (R); 14:30 BP 118 / 82; Pulse 90; Pulse Ox 100% ; ap3 15:30 BP 119 / 80; Pulse 87; Pulse Ox 98% ; ap3 17:00 BP 121 / 85; Pulse 89; Pulse Ox 99% ; ap3 19:32 BP 112 / 78; Pulse 81; Resp 16 S; Pulse Ox 100% on R/A; Pain 0/10; bb 21:39 BP 127 / 82; Pulse 85; Resp 16 S; Pulse Ox 98% on R/A; bb 22:22 BP 114 / 79; Pulse 87; Resp 16 S; Pulse Ox 98% on R/A; bb 10/18 01:03 BP 110 / 69; Pulse 81; Resp 14 S; Pulse Ox 98% on R/A; bb 10/17 12:47 Body Mass Index 27.46 (70.31 kg, 160.02 cm) ca1 MDM: 10/17 14:22 Patient medically screened. 19:05 Data reviewed: vital signs, nurses notes, lab test result(s), EKG. 19:10 Physician consultation: Srinivas German MD was called at 19:00, was contacted at 19:00, cp regarding consult, patient's condition, wants patient admitted to hospitalist and to hold dilantin for next 1-2 days. 19:45 Response to treatment: the patient's symptoms have mildly improved after treatment, and cp as a result, I will admit patient. 19:45 Physician consultation: Allan PENG was called at 19:45, was contacted at 19:45, cp regarding admission, to the telemetry unit. patient's condition, and will see patient in ED, shortly. 10/17 14:52 Order name: Basic Metabolic Panel 10/17 14:52 Order name: CBC with Diff 10/17 14:52 Order name: LFT's 10/17 14:52 Order name: Magnesium cp 10/17 14:52 Order name: Lipase; Complete Time: 18:44 10/17 14:52 Order name: Dilantin; Complete Time: 18:44 10/17 18:44 Interpretation: Abnormal: PTN 44.1. 10/17 14:52 Order name: Basic Metabolic Panel; Complete Time: 18:44 EDMS 10/17 14:52 Order name: CBC with Automated Diff; Complete Time: 17:34 EDMS 10/17 17:34 Interpretation: Normal except: HGB 11.8; HCT 35.9; RDW 19.8. 10/17 14:52 Order name: Liver (Hepatic) Function; Complete Time: 18:44 EDMS 10/17 14:52 Order name: Magnesium; Complete Time: 18:44 EDMS 10/17 14:52 Order name: EKG; Complete Time: 14:52 cp 10/17 19:59 Order name: Urine Dipstick-Ancillary EDMS 10/17 21:20 Order name: COVID-19 : Document "Date of Symptom Onset" if Symptomatic. tt3 10/17 21:50 Order name: CORONAVIRUS EDMS 10/17 22:33 Order name: SARS-COV-2 RT PCR EDMS 10/18 06:48 Order name: CBC with Automated Diff EDMS 10/18 07:05 Order name: Comprehensive Metabolic Panel EDMS 10/18 07:05 Order name: Phosphorus EDMS 10/18 07:05 Order name: Magnesium EDMS 10/18 07:19 Order name: Phenytoin (Dilantin) Level EDMS 10/17 14:24 Order name: Orthostatics; Complete Time: 17:16 cp 10/17 14:52 Order name: Cardiac monitoring; Complete Time: 16:32 cp 10/17 14:52 Order name: EKG - Nurse/Tech; Complete Time: 16:33 cp 10/17 14:52 Order name: IV Saline Lock; Complete Time: 16:33 cp 10/17 14:52 Order name: Labs collected and sent; Complete Time: 16:33 cp 10/17 14:52 Order name: O2 Per Protocol; Complete Time: 16:33 cp 10/17 14:52 Order name: O2 Sat Monitoring; Complete Time: 16:33 cp 10/17 14:52 Order name: Urine Dipstick-Ancillary (obtain specimen); Complete Time: 20:00 cp 10/17 14:52 Order name: Urine Test (obtain specimen); Complete Time: 20:00 cp 10/17 14:53 Order name: EKG Electrocardiogram; Complete Time: 16:32 EDMS 05 20:20 Order name: CONS Physician Consult EDMS EC:25 Rate is 86 beats/min. Rhythm is regular. CA interval is normal. QRS interval is normal. cp QT interval is normal. T waves are Inverted in lead aVR. Interpreted by me. Reviewed by me. Administered Medications: 15:43 Drug: Meclizine 25 mg Route: PO; ap3 16:42 Follow up: Response: No adverse reaction ap3 17:14 Drug: Zofran (Ondansetron) 4 mg Route: IVP; Site: right upper arm; ap3 20:01 Follow up: Response: No adverse reaction bb 17:14 Drug: Pepcid (famotidine) 20 mg Route: IVP; Site: right upper arm; ap3 20:01 Follow up: Response: No adverse reaction bb 17:15 Drug: NS 0.9% 1000 ml Route: IV; Rate: 1 bolus; Site: right upper arm; ap3 19:00 Follow up: IV Status: Completed infusion; IV Intake: 1000ml bb Disposition: 20:00 Chart complete. cp 10/18 09:38 Co-signature as Attending Physician, Steve Lawrence MD I agree with the assessment and issac plan of care. Disposition: 10/17/20 19:57 Hospitalization ordered by Richard Pisano for Inpatient Admission. Preliminary diagnosis is Poisoning by hydantoin derivatives, accidental (unintentional). - Bed requested for Telemetry/MedSurg (Inpatient). - Status is Inpatient Admission. ap3 - Condition is Stable. - Problem is new. - Symptoms have improved. Signatures: Dispatcher [employer] EDMS Yisel Mallory RN Steve Jurado MD MD cha Lasagna, Tonya, RN RN tl1 Steve Arreaga PA PA cp Arlene Lewis RN RN ap3 Jannette Romero RN RN Yesenia Sanches RN bb Corrections: (The following items were deleted from the chart) 10/17 14:53 14:52 Basic Metabolic Panel ordered. EDMS EDMS 14:53 14:52 CBC with Automated Diff ordered. EDMS EDMS 14:53 14:52 Liver (Hepatic) Function ordered. EDMS EDMS 14:53 14:52 Magnesium ordered. EDMS EDMS 14:53 14:52 Lipase ordered. EDMS EDMS 14:54 14:53 Phenytoin (Dilantin) Level ordered. EDMS EDMS 20:29 19:57 Hospitalization Ordered by Allan PENG for Inpatient Admission. Preliminary cp diagnosis is Poisoning by hydantoin derivatives, accidental (unintentional). Bed requested for Telemetry/MedSurg (Inpatient). Status is Inpatient Admission. Condition is Stable. Problem is new. Symptoms have improved. cp 23:15 23:13 Physician consultation: Srinivas German MD was called at 19:00, was contacted at 19:00, regarding consult, patient's condition, wants patient admitted to hospitalist and to hold dilantin for next 1-2 days, 23:37 20:29 10/17/2020 19:57 Hospitalization Ordered by Richard Pisano MD for Inpatient tl1 Admission. Preliminary diagnosis is Poisoning by hydantoin derivatives, accidental (unintentional). Bed requested for Telemetry/MedSurg (Inpatient). Status is Inpatient Admission. Condition is Stable. Problem is new. Symptoms have improved. 10/18 08:26 10/17 23:37 10/17/2020 19:57 Hospitalization Ordered by Richard Pisano MD for Inpatient dw Admission. Preliminary diagnosis is Poisoning by hydantoin derivatives, accidental (unintentional). Bed requested for [facility] ER HOLD. Status is Inpatient Admission. Condition is Stable. Problem is new. Symptoms have improved. tl1 10/18 09:31 08:26 10/17/2020 19:57 Hospitalization Ordered by Richard Pisano MD for Inpatient ap3 Admission. Preliminary diagnosis is Poisoning by hydantoin derivatives, accidental (unintentional). Bed requested for Telemetry/MedSurg (Inpatient). Status is Inpatient Admission. Condition is Stable. Problem is new. Symptoms have improved. dw
--- NOTE | 2020-10-17 20:43 | P.HP ---
Certification for Inpatient Patient admitted to: Inpatient With expected LOS: >2 Midnights Patient will require the following post-hospital care: None Practitioner: I am a practitioner with admitting privileges, knowledge of patient current condition, hospital course, and medical plan of care. Services: Services provided to patient in accordance with Admission requirements found in Title 42 Section 412.3 of the Code of Federal Regulations Patient History Date of Service: 10/17/20 Primary Care Provider: none Reason for admission: phenytoin toxicity History of Present Illness: Ms. Hope is a 29 yo female with epilepsy on dilantin and onfi here today with several days of lightheadedness, blurry vision, difficulty walking, slurred speech, nausea and vomiting. She says she has had to hold on to something to keep her balance and her mom has had to take care of her. She can't keep food down. She reports mild abdominal pain. Her last seizure was 1 month ago during her period. HEr neurologist has been tapering down the Onfi and continuing Dilantin. Dilantin level found to be 44.1. Vitals stable. Allergies No Known Drug Allergies Allergy (Verified 08/21/19 23:48) Unknown Home Medications: Levetiracetam [Keppra] 1 tab PO BID 08/21/19 Ferrous Sulfate 325 mg PO BID #60 tablet 08/22/19 Divalproex Sodium [Depakote] 250 mg PO BID 30 Days #60 tablet. 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 - Family History Father -: Other (see notes) Notes: paternal grandmother - MS, seizures Mother -: Diabetes - Social History Smoking Status: Never smoker Alcohol use: No CD- Drugs: No Caffeine use: No Place of Residence: Home Review of Systems General: Weakness, Malaise, As per HPI Eyes: Vision Change, As per HPI ENT: Unremarkable Respiratory: Unremarkable Cardiovascular: Light Headedness, As per HPI Gastrointestinal: Nausea, Vomiting, Abdominal Pain, As per HPI Genitourinary: Unremarkable Musculoskeletal: Unremarkable Integumentary: Unremarkable Neurological: Weakness, Incoordination, Change in Speech, As per HPI Lymphatics: Unremarkable Physical Examination - Physical Exam General: Alert, In no apparent distress, Oriented x3, Cooperative HEENT: Atraumatic, Normocephalic, PERRLA, Mucous membr. moist/pink, EOMI, Sclerae nonicteric Neck: Supple, 2+ carotid pulse no bruit, JVD not distended, No Thyromegaly, No LAD Respiratory: Clear to auscultation bilaterally, Normal air movement Cardiovascular: No edema, Normal pulses, Regular rate/rhythm, Normal S1 S2, No gallops, No rubs, No murmurs Capillary refill: <2 Seconds Gastrointestinal: Normal bowel sounds, Soft and benign, Non-distended, No ascites, No tenderness, No masses, No rebound, No guarding Musculoskeletal: No clubbing, No swelling, No contractures, No erythema, No tenderness, No warmth Integumentary: No rashes, No breakdown, No significant lesion, No tenderness/swelling, No erythema, No warmth, No cyanosis Neurological: Normal strength at 5/5 x4 extr, Normal tone, Sensation intact, Cranial nerves 3-12 intact, Normal affect, Other (mildly slurred speech), Abnormal gait, Abnormal speech Lymphatics: No axilla or inguinal lymphadenopathy - Studies Laboratory Data (last 24 hrs) 10/17/20 17:08: WBC 7.60, Hgb 11.8 L, Hct 35.9 L, Plt Count 242 10/17/20 17:08: Sodium 139, Potassium 3.9, BUN 9, Creatinine 0.46 L, Glucose 95, Magnesium 1.9, Total Bilirubin 0.1 L, AST 16, ALT 20, Alkaline Phosphatase 64, Lipase 67 L Assessment and Plan - Problems (Diagnosis) (1) Dilantin toxicity Current Visit: Yes Status: Acute Qualifiers: Encounter type: initial encounter Injury intent: accidental or unintentional Qualified Code(s): T42.0X1A - Poisoning by hydantoin derivatives, accidental (unintentional), initial encounter (2) Complex partial epilepsy Onset Date: 01/30/15 Current Visit: No Status: Chronic Qualifiers: Epilepsy type: partial symptomatic - Plan Neurology consulted Hold Dilantin, recheck level in the AM Seizure precautions, Ativan prn on telemetry Zofran for nausea, advance diet as tolerated Vitals currently stable Discharge Plan: Home Plan to discharge in: 24 Hours - Advance Directives Does patient have a Living Will: No Does patient have a Durable POA for Healthcare: No - Code Status/Comfort Care Code Status Assessed: Yes (full code) Critical Care: No Time Spent Managing Pts Care (In Minutes): 70
[2020-10-17] MEDS ORDERED: ACETAMINOPHEN 500 MG TAB PO PRN (22:54)
[2020-10-17] MEDS ORDERED: LORazepam 2 MG/ML VIAL IV PRN (22:54)
[2020-10-17] MEDS ORDERED: ONDANSETRON 4 MG/2 ML VIAL IV PRN (22:54)
[2020-10-18 01:08] VITALS: BMI 27.4
[2020-10-18 06:43] LABS: Absolute Lymphocytes (CBC) 2.7 K/uL (0.7-4.9); Basophils % 0.7 % (0-1.3); Hematocrit 36.5 % (36.0-45.0); Lymphocytes % 36.3 % (15.3-44.8); MPV 7.5 fL (7.6-11.3); RBC Red Blood Cell Count 4.33 M/uL (3.86-4.86)
[2020-10-18 07:04] LABS: ALT/SGPT 18 U/L (12-78); AST/SGOT 14 U/L (15-37); Albumin 3.7 g/dL (3.4-5.0); Alkaline Phosphatase 61 U/L (45-117); BUN Blood Urea Nitrogen 7 mg/dL (7-18); Bicarbonate 28 mmol/L (21-32); Bilirubin Total 0.2 mg/dL (0.2-1.0); Glucose Level 85 mg/dL (74-106); Magnesium 1.9 mg/dL (1.8-2.4); Protein, Total 6.8 g/dL (6.4-8.2); Sodium Level 140 mmol/L (136-145)
--- NOTE | 2020-10-18 07:19 | EKG ---
Test Date: 2020-10-17 Test Time: 16:17:26 Reinsurance Claim Analyst: ALP MEASUREMENT RESULTS: Intervals: Rate: 86 UT: 168 QRSD: 80 QT: 360 QTc: 430 [place]: P: 46 UT: 168 QRS: 44 T: 44 INTERPRETIVE STATEMENTS: Normal sinus rhythm Cannot rule out Anterior infarct, age undetermined Abnormal ECG Compared to ECG 09/28/2020 20:03:40 No significant changes Electronically Signed On 10-18-20 07:17:38 CDT by Merrill Guzman
[2020-10-18] MEDS: levETIRAcetam 500 MG in NA CHLORIDE 0.9% 100 ML IV SCH ×2 (07:45→18:28)
[2020-10-18] MEDS ORDERED: ENOXAPARIN 40 MG/0.4 ML SQ ONE (08:35)
[2020-10-18] MEDS: ENOXAPARIN 40 MG/0.4 ML SQ SCH (08:53)
--- NOTE | 2020-10-18 22:05 | CON ---
Reason For Consultation: Consultation called because of Dilantin toxicity. History Of Present Illness: Ms. Hope is a 29-year-old right-handed patient with history of medically refractory complex partial seizures, for which she has been tried on multiple medications and there is a plan to have a DBS implantation in [place] to treat seizures. She saw her neurologist in [place] 1 month ago and subsequently her Dilantin dosage was increased to 300 mg twice daily as s he tried to wean off a second antiepileptic medication. About a week and a half to 2 weeks ago, she began having blurred vision, unsteady gait, nausea, vomiting, which worsened and eventually brought h er to [facility] as she had very poor balance and that was on October 17, 2020. Blood work revea led a Dilantin level of 44.1. Otherwise, she did not have any significant abnormalities in terms of her blood work, except for mild anemia. Her chemistries show mild dehydration. Liver function studi es were normal. Urinalysis negative. Toxicology again showed elevated Dilantin and COVID-19 was neg ative. An electrocardiogram showed normal sinus rhythm, however, could not rule out anterior infarct ion, age undetermined. The patient was admitted for Dilantin detoxification. At the time of my eval uation, she had significant reduction in nausea, vomiting, dizziness, and unsteady gait. Today, Dila ntin level is 41.0, down from 44.1. Past Medical History: As indicated, in addition to chronic anemia, depression. Past Surgical History: Surgery on the neck. Family History: Seizures in maternal grandmother and father. Allergies: NO KNOWN DRUG ALLERGIES. Medications: Keppra 500 mg twice daily, ferrous sulfate 325 mg twice daily, Depakote 250 mg twice da parvez, Dilantin 300 mg twice daily, Klonopin 0.5 mg 3 times daily. Social History: She denies any alcohol, tobacco, or IV drug use. She has a young child at home. Review of Systems: As noted, diffuse weakness, myalgias, nausea, vomiting, abdominal pain, gait instability, and slurred speech. Otherwise, negative on a 10 point review of systems. Physical Examination: Vital Signs: Blood pressure 113/65, pulse of 68, respiratory rate 16, temperature 98.7, oxygen satur ation 99% on room air, weight 155 pounds, height 5 feet 3 inches, BMI 27.5. General: Ms. Hope is resting in bed. She is in no acute distress. HEENT: She is normocephalic, atraumatic. Sclerae anicteric. Oropharynx is pink and moist. Neck: Supple. Chest: Clear. Heart: Regular. Extremities: No clubbing, cyanosis, or edema. Neurological: She has mild dysmetria on [id number] and subtle nystagmus bilaterally in the eyes otherwise. Since she has normal strength, coordination again is slightly impaired, slightly ataxic g ait. No weakness or numbness in arms or legs. Cranial nerves as mentioned are unremarkable. Assessment: Ms. 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 She is scheduled to have a DBS implantation in [facility] to help treat seizures. She does have a neurologist in [place], who is following her, Dr. Richard Henley. She will be in [facility] with a recheck of Dilantin level in the morning. When her level will be small to 20 to 25, she may restart Dilantin at 200 mg twice daily. She will follow up with her neurologist in [place] for additional medication changes and continue other medications inc luding Keppra and clonazepam as instructed. WILFRED/MARIA ESTHER Voice ID: [id number] Report ID: [id number]
[2020-10-19 05:08] LABS: Absolute Lymphocytes (CBC) 1.9 K/uL (0.7-4.9); Basophils % 0.7 % (0-1.3); Hematocrit 36.6 % (36.0-45.0); Lymphocytes % 26.2 % (15.3-44.8); MPV 7.7 fL (7.6-11.3); RBC Red Blood Cell Count 4.34 M/uL (3.86-4.86)
[2020-10-19 05:26] LABS: ALT/SGPT 18 U/L (12-78); AST/SGOT 20 U/L (15-37); Albumin 3.4 g/dL (3.4-5.0); Alkaline Phosphatase 72 U/L (45-117); BUN Blood Urea Nitrogen 11 mg/dL (7-18); Bicarbonate 26 mmol/L (21-32); Bilirubin Total 0.1 mg/dL (0.2-1.0); Glucose Level 105 mg/dL (74-106); Magnesium 1.8 mg/dL (1.8-2.4); Potassium 3.6 mmol/L (3.5-5.1); Protein, Total 6.6 g/dL (6.4-8.2); Sodium Level 141 mmol/L (136-145)
[2020-10-19] MEDS: levETIRAcetam 500 MG in NA CHLORIDE 0.9% 100 ML IV SCH ×2 (07:45→19:05)
[2020-10-19] MEDS: ENOXAPARIN 40 MG/0.4 ML SQ SCH (09:29)
[2020-10-19] MEDS ORDERED: NA CHLORIDE 0.9% 1,000 ML IV ONE (13:37)
[2020-10-19] MEDS: NA CHLORIDE 0.9% 1,000 ML IV SCH ×2 (18:07→23:06)
[2020-10-19] MEDS: GUAIFENESIN/CODEINE 5ML UCUP PO PRN (19:21)
[2020-10-20] MEDS: levETIRAcetam 500 MG in NA CHLORIDE 0.9% 100 ML IV SCH ×2 (07:45→19:45)
[2020-10-20] MEDS: GUAIFENESIN/CODEINE 5ML UCUP PO PRN ×2 (08:59→21:07)
[2020-10-20] MEDS: ENOXAPARIN 40 MG/0.4 ML SQ SCH (08:59)
[2020-10-20] MEDS: NA CHLORIDE 0.9% 1,000 ML IV SCH ×2 (09:00→21:06)
--- NOTE | 2020-10-20 11:59 | P.PN ---
Subjective Date of Service: 10/18/20 Subjective: No new changes, No C/O voiced, Improving Review of Systems 10-point ROS is otherwise unremarkable Physical Examination - Vital Signs Temperature: 98.6 F Blood Pressure: 119/71 Pulse: 88 Respirations: 16 Pulse Ox (%): 98 - Physical Exam General: Alert, In no apparent distress, Oriented x3 Respiratory: Clear to auscultation bilaterally, Normal air movement Cardiovascular: Regular rate/rhythm, Normal S1 S2, No murmurs Gastrointestinal: Normal bowel sounds, Soft and benign, Non-distended, No tenderness Musculoskeletal: No clubbing, No swelling, No tenderness Neurological: Sensation intact, Cranial nerves 3-12 intact Lymphatics: No axilla or inguinal lymphadenopathy - Studies Medications List Reviewed: Yes Assessment & Plan - Problems (Diagnosis) (1) Dilantin toxicity Current Visit: Yes Status: Acute Qualifiers: Encounter type: initial encounter Injury intent: accidental or unint entional Qualified Code(s): T42.0X1A - Poisoning by hydantoin derivatives, accidental (unintentional), initial encounter - Plan Plan: 1. Repeat Dilantin level 2. Start anti epileptic-Keppra 500 daily while Dilantin levels come down 3. Continue benzodiazepine 4. Gentle hydration 5. GI and DVT prophylaxis Discharge Plan: Home Plan to discharge in: Greater than 2 days - Advance Directives Does patient have a Living Will: No Does patient have a Durable POA for Healthcare: No - Code Status/Comfort Care Code Status Assessed: Yes Code Status: Full Code Critical Care: No Time Spent Managing PTS Care (In Minutes): 35
--- NOTE | 2020-10-20 12:07 | P.PN ---
Date of Service: 10/19/20 Subjective Subjective: Patient clinically doing well with no new complaints. Patient continues to improve; repeat Dilantin level in a.m. Physical Examination Vital Signs Reviewed Physical Exam General: Alert, In no apparent distress, Oriented x3 Respiratory: Clear to auscultation bilaterally, Normal air movement Cardiovascular: Regular rate/rhythm, Normal S1 S2, No murmurs Gastrointestinal: Normal bowel sounds, Soft and benign, Non-distended, No tenderness Musculoskeletal: No clubbing, No swelling, No tenderness Assessment & Plan - Problems (Diagnosis) (1) Dilantin toxicity Current Visit: Yes Status: Acute Qualifiers: Encounter type: initial encounter Injury intent: accidental or unintentional Qualified Code(s): T42.0X1A - Poisoning by hydantoin derivatives, accidental (unintentional), initial encounter (2) History of seizures Current Visit: Yes Status: Acute - Plan Plan: Continue with plan of care as mentioned below 1. Repeat Dilantin level 2. Patient refuse Keppra 3. Continue benzodiazepine 4. Gentle hydration 5. GI and DVT prophylaxis
[2020-10-20 20:39] VITALS: O2SAT 98
[2020-10-21] MEDS: NA CHLORIDE 0.9% 1,000 ML IV SCH (04:20)
[2020-10-21 06:15] LABS: Absolute Lymphocytes (CBC) 1.8 K/uL (0.7-4.9); Basophils % 0.6 % (0-1.3); Hematocrit 34.7 % (36.0-45.0); Lymphocytes % 25.4 % (15.3-44.8); MPV 7.8 fL (7.6-11.3); RBC Red Blood Cell Count 4.13 M/uL (3.86-4.86)
[2020-10-21 06:29] LABS: ALT/SGPT 43 U/L (12-78); AST/SGOT 51 U/L (15-37); Albumin 3.4 g/dL (3.4-5.0); Alkaline Phosphatase 82 U/L (45-117); BUN Blood Urea Nitrogen 10 mg/dL (7-18); Bicarbonate 25 mmol/L (21-32); Bilirubin Total 0.1 mg/dL (0.2-1.0); Glucose Level 88 mg/dL (74-106); Magnesium 1.8 mg/dL (1.8-2.4); Phosphorus 4.5 mg/dL (2.5-4.9); Potassium 4.1 mmol/L (3.5-5.1); Protein, Total 6.9 g/dL (6.4-8.2); Sodium Level 139 mmol/L (136-145)
[2020-10-21] MEDS: GUAIFENESIN/CODEINE 5ML UCUP PO PRN (07:10)
[2020-10-21] MEDS: levETIRAcetam 500 MG in NA CHLORIDE 0.9% 100 ML IV SCH (07:45)
[2020-10-21] MEDS: ENOXAPARIN 40 MG/0.4 ML SQ SCH (09:38)
[2020-10-21 13:04] VITALS: BP 124/78; TEMP 98.4
--- NOTE | 2020-10-26 00:56 | P.PN ---
Date of Service: 10/20/20 Subjective Subjective: Patient Dilantin level has improved. We will continue to monitor Dilantin levels. Clinically, patients headache is better & she is feeling much better. Physical Examination Vital Signs Reviewed Physical Exam General: Alert, In no apparent distress, Oriented x3 Respiratory: Clear to auscultation bilaterally, Normal air movement Cardiovascular: Regular rate/rhythm, Normal S1 S2, No murmurs Gastrointestinal: Normal bowel sounds, Soft and benign, Non-distended, No tenderness Musculoskeletal: No clubbing, No swelling, No tenderness Assessment & Plan - Problems (Diagnosis) (1) Dilantin toxicity Current Visit: Yes Status: Acute Qualifiers: Encounter type: initial encounter Injury intent: accidental or unintentional Qualified Code(s): T42.0X1A - Poisoning by hydantoin derivatives, accidental (unintentional), initial encounter (2) History of seizures Current Visit: Yes Status: Acute - Plan Plan: Continue with plan of care as mentioned below 1. Repeat Dilantin level; levels have decreased 2. Patient refuses Keppra 3. Continue benzodiazepine 4. Gentle hydration 5. GI and DVT prophylaxis
--- NOTE | 2020-10-26 00:59 | P.DS ---
Discharge Date: 10/21/20 Primary Care Provider: none Disposition: ROUTINE DISCHARGE Discharge Condition: GOOD Reason for Admission: phenytoin toxicity Consultations: Neurologist - Problems (1) Dilantin toxicity Status: Acute Qualifiers: Encounter type: initial encounter Injury intent: accidental or unintentional Qualified Code(s): T42.0X1A - Poisoning by hydantoin derivatives, accidental (unintentional), initial encounter Brief History of Present Illness: Ms. Hope is a 29 yo female with epilepsy on dilantin and onfi here today with several days of lightheadedness, blurry vision, difficulty walking, slurred speech, nausea and vomiting. She says she has had to hold on to something to keep her balance and her mom has had to take care of her. She can't keep food down. She reports mild abdominal pain. Her last seizure was 1 month ago during her period. HEr neurologist has been tapering down the Onfi and continuing Dilantin. Dilantin level found to be 44.1. Vitals stable. Hospital Course: Patient's clinical symptoms are much better. Patient's Dilantin level has stabilized. We will hold Dilantin for another 48 hours. Outpatient level need to be repeated. Dilantin will be decreased to 200 mg p.o. b.i.d. Vital Signs/Physical Exam: Temp Pulse Resp BP Pulse Ox 98.4 F 103 H 16 124/78 99 10/21/20 12:00 10/21/20 12:00 10/21/20 12:00 10/21/20 12:00 10/21/20 12:00 General: Alert, In no apparent distress, Oriented x3 Laboratory Data at Discharge: WBC 7.00 K/uL (4.3-10.9) 10/21/20 05:14 Hgb 11.6 g/dL (12.0-15.0) L 10/21/20 05:14 Hct 34.7 % (36.0-45.0) L 10/21/20 05:14 Plt Count 202 K/uL (152-406) 10/21/20 05:14 Sodium 139 mmol/L (136-145) 10/21/20 05:14 Potassium 4.1 mmol/L (3.5-5.1) 10/21/20 05:14 BUN 10 mg/dL (7-18) 05/09/21 05:14 Creatinine 0.43 mg/dL (0.55-1.3) L 10/21/20 05:14 Glucose 88 mg/dL (74-106) 10/21/20 05:14 Phosphorus 4.5 mg/dL (2.5-4.9) 10/21/20 05:14 Magnesium 1.8 mg/dL (1.8-2.4) 10/21/20 05:14 Total Bilirubin 0.1 mg/dL (0.2-1.0) L 10/21/20 05:14 AST 51 U/L (15-37) H 10/21/20 05:14 ALT 43 U/L (12-78) 10/21/20 05:14 Alkaline Phosphatase 82 U/L (45-117) 10/21/20 05:14 Lipase 67 U/L (73-393) L 10/17/20 17:08 Home Medications: Clobazam [Onfi] 5 mg PO BID 10/18/20 Phenytoin Sodium Extended [Dilantin] 200 mg PO Q12H #60 capsule 10/20/20 New Medications: Phenytoin Sodium Extended [Dilantin] 200 mg PO Q12H #60 capsule Physician Discharge Instructions: PROBLEM: Phenytoin Toxicity GOAL: Clear understanding of disease process INSTRUCTIONS: Diet: Regular Activity: Fall precautions OK TO DC IV AND DC HOME FOLLOW-UP WITH PRIMARY CARE PROVIDER IN 1-2 WEEKS FOLLOW-UP WITH NEUROLOGY IN 1-2 WEEKS RETURN TO THE ER IF symptoms worsen CALL or TEXT DR. GARCIA AT [phone] IF ANY QUESTIONS REGARDING HOSPITAL STAY. PLEASE CALL THE FLOOR AT [phone] IF ANY MEDICATION OR NURSING QUESTIONS. Resume phenytoin 200 mg p.o. b.i.d. (twice a day) on October 23, 2020 Diet: Regular Activity: Fall precautions Followup: Srinivas German MD [ASSOCIATE-ACTIVE - CAN ADMIT] - (Call to make an appointment. ) NONE,NONE [Primary Care Provider] - Time spent managing pt's care (in minutes): 35
== END 2020-10-21 15:36 | disposition home or self-care (01) | DRG 918 ==
LOC: ER 12:23 → ERHOLD 20:40 → 2ND 10-18 09:02
PROVIDERS: ADMIT Hospitalist; ATTEND Hospitalist
DX: T42.0X1A Poisoning by hydantoin derivatives, accidental (unintentional), initial encounter (principal); G40.209 Localization-related (focal) (partial) symptomatic epilepsy and epileptic syndromes with complex partial seizures, not intractable, without status epilepticus; R42 Dizziness and giddiness; Z79.899 Other long term (current) drug therapy; Z20.822 Contact with and (suspected) exposure to COVID-19
CPT/HCPCS: 36415; 80048; 80053; 80076; 80185; 81003; 83690; 83735; 84100; 85025; 93005; 94760; 96361; 96374; 96375; 99285; J1650; J1953; J2405; J7030; U0003

== ENCOUNTER 2020-11-05 15:41 | Emergency (ER) | payer OTHER ==
--- OUTSIDE RECORDS SUMMARY | 2020-11-05 15:47 | XMS REPORT | Continuity of Care Document ---
:1990 Author Organization [facility] t Address [address] [place] [address] Care Team Providers Name Role Phone Asked, Pcp Primary Care Physician Unavailable Cristian MENDOZA, Justin Attending Clinician Rickie TAYLOR, A Attending Clinician Unavailable Niki RN, A Attending Clinician Unavailable Killian Jacobo MD Attending Clinician Gaye MENDOZA Attending Clinician Rafael CRUZ Attending Clinician Unavailable Galina Cruz MD Attending Clinician Cecil Van MD Attending Clinician Arya MENDOZA Attending Clinician Pavan Matos DO Attending Clinician Mayito Daily [...] Source Type Number Date Date CIGNACIGNA OPEN 2019 [place] ACCESS/[id number]/ 2 00:00:00 [facility] /2020-PresentO [facility] MEDICAIDUNITEDHEALTHCARE [id number] 2020 [facility] STAR 00:00:00 [facility]ist [id number]/06/2020-Present HMO Problems Condition Condition Condition Status Onset Resolution Last Treating Co mments Source Name Details Category Date Date Treatment Clinician Date Abdominal Abdominal Disease Active [place] st[facility] pain pain 1-11 [facility] st 00 Epilepsy Epilepsy Disease Active 2019-06 [place] 0-21 [facility] st 00 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 00:00: st with with 00 generaliza generaliza tion and tion and with with intractabl intractabl e epilepsy e epilepsy Seizure Seizure Disease Active [place] 5-30 [facility] st 00 Hypokalemi Hypokalemi [...] is 07[facility]14 [facility] 00 [place] Less than Less than Disease Active 2016-[address] [facility] [address] 8 weeks 8 weeks 07-14 [facility] gestation gestation [facility] Center Allergies, Adverse Reactions, Alerts Allergy Allergy Status Severity Reaction(s) Onset Inactive Treating Comm ents Source Name Type Date Date Clinician No Known DA Active [facility] 9 [facility] No Known DA Active U 2016-06 [facility] 07[facility] Family History Family Member Diagnosis Comments Start Date Stop Date Source Natural father No Known Problems [place] aguila [facility] Natural mother No Known Problems [place] aguila [facility] Paternal Multiple sclerosis [place] [facility] grandmother Family member Diabetes [place] [facility] hodist Family member Hypertension [facility] ethodi Social History Social Habit Start Date Stop Date Quantity Comments Source Exposure to Not sure [place] Metho dist SARS-CoV-2 (event) Tobacco use and 2020-11-05 2020-11-05 Never used [facility] ethodist exposure 00:00:00 00:00:00 Alcohol intake 2020-11-05 2020-11-05 [facility] thodist 00:00:00 00:00:00 non-drinker (finding) Sex Ass[birth year] At [birth year] [place] ethodist 00:00:00 00:00:00 Smoking Status Start Date Stop Date Source Never smoker [place] t Medications Ordered Filled Start Stop Current Ordering Indication Dosage Frequency Signature Comments Components Source Medication Medication Date Date Medication? Clinician (SIG) Name Name phenytoin 2021- Yes 300mg QD Take 3 [place] (Dilantin 10-04 capsules Metho di Kapseal) 00:00: 23:59 ([address] 100 MG ER 00 :00 total) by capsule mouth daily. 300 mg bid for day one and then 300 mg bid ferrous 2020- No 325mg Q.5D Take 1 [place] sulfate 325 09-13 tablet Metho di (65 FE) MG 00:00: 23:59 ([address] tablet 00 :00 total) by mouth 2 (two) times a day with meals for 30 days. cloBAZam 2020- No Other [...] QD Take 2 [place] (ONFI) 20 08-21 tablets Method i mg tablet 00:00: 00:00 [...] by mouth daily for 60 days. cloBAZam 2019-06 No 30mg QD Take 3 [place] (ONFI) 10 1-12 -15 tablets Method i mg tablet 00:00: 00:00 ([address] 00 :00 total) by mouth daily for 180 days. ergocalcife 2019-06- [place] [id number] Q7D Take 1 [place] rol 0-31 [...] 1 [place] complex-vit 11-14 tablet by Pr marques carter 00:00: 23:59 [...] Ordered Immunization Filled Immunization Date Status Commen Source Name Name Tdap 2020-05-02 [facility] 00:00:00 [facility] Vital Signs Vital Name Observation Time Observation Value Comments Source Systolic blood 2020-11-02 15:44:00 134 mm[Hg] [place] [facility] pressure Diastolic blood 2020-11-02 15:44:00 75 mm[Hg] Julee Piedra pressure Heart rate 2020-11-02 15:44:00 65 /min Enrique Piedra Body temperature 2020-11-02 15:44:00 36.67 Melody Son[place] ton [facility] Respiratory rate 2020-11-02 15:44:00 16 /min [place] [facility] Body height 2020-11-02 15:44:00 160 cm Enrique Piedra Body weight 2020-11-02 15:44:00 73.029 kg Enrique Piedra BMI 2020-11-02 15:44:00 28.52 kg/m2 Enrique Piedra Oxygen saturation in 2020-11-02 15:44:00 98 /min Enrique Piedra Arterial blood by Pulse oximetry Procedures Procedure Date / Time Performing Clinician Source Performed BASIC METABOLIC PANEL 2020-11-02 16:09:00 Marilee Foster CBC HEMOGRAM 2020-11-02 16:09:00 Marilee Foster ethodist PARTIAL THROMBOPLASTIN 2020-11-02 16:09:00 Marilee Foster TIME (PTT) PROTHROMBIN TIME WITH INR 2020-11-02 16:09:00 Marilee Foster HEPATIC FUNCTION PANEL 2020-11-02 16:09:00 Arlene Brumfield HCG QUALITATIVE, SERUM 2020-11-02 16:09:00 Arlene Brumfield SCREEN ESTIMATED GFR 2020-11-02 16:09:00 CristianMarilee ethodist HEMOGLOBIN A1C 2020-11-02 16:09:00 Arlene Brumfield Enrique Rai ethodist ECG PRE/POST OP 2020-11-02 15:48:01 CristianMarilee ethodist COVID-19 QUALITATIVE PCR 2020-11-02 15:37:00 CristianMarilee [facility]ist CBC WITH PLATELET AND 2020-10-04 12:36:00 Michelet Godinez DIFFERENTIAL TROPONIN 2020-10-04 12:36:00 Michelet Godinezst B NATRIURETIC PEPTIDE 2020-10-04 12:36:00 Michelet Godinez PHENYTOIN LEVEL 2020-10-04 12:36:00 Michelet Godinez ethodist HC COMPLETE BLD COUNT 2020-10-04 12:36:00 Poppy Jacobo [facility] W/AUTO DIFF ECG 12-LEAD 2020-10-04 11:22:39 Michelet Godinez ethodist COMPREHENSIVE METABOLIC 2020-10-04 11:20:00 Michelet Godinez [facility] PANEL ESTIMATED GFR 2020-10-04 11:20:00 Michelet Godinez ethodist HC COMPLETE BLD COUNT 2020-09-13 04:31:00 Rosalie Bailey [facility] W/AUTO DIFF COMPREHENSIVE METABOLIC 2020-09-13 04:31:00 Rosalie Bailey [facility] PANEL ESTIMATED GFR 2020-09-13 04:31:00 Rosalie Bailey Meth odist HC COMPLETE BLD COUNT 2020-09-12 05:40:00 Rosalie Bailey n [facility] W/AUTO DIFF COMPREHENSIVE METABOLIC 2020-09-12 04:00:00 Rosalie Bailey [facility] PANEL ESTIMATED GFR 2020-09-12 04:00:00 Rosalie Bailey Meth odist FERRITIN LEVEL 2020-09-11 04:48:00 Ulises Choudhary odadriano TOTAL IRON BINDING 2020-09-11 04:48:00 Ulises Choudhary ethodist CAPACITY CT HEAD WO CONTRAST 2020-09-10 [...] Piedra W/AUTO DIFF COMPREHENSIVE METABOLIC 2020-09-10 14:00:00 TuAlexander PANEL ESTIMATED GFR 2020-09-10 14:00:00 Tu, Alexander Piedra HC COMPLETE BLD COUNT 2020-06-29 05:00:00 Mila Fitzgerald W/AUTO DIFF FREE PHENYTOIN LEVEL 2020-06-29 05:00:00 Mila Fitzgerald BASIC METABOLIC PANEL 2020-06-29 04:00:00 Mila Fitzgerald [facility] MAGNESIUM LEVEL 2020-06-29 04:00:00 Mila Fitzgerald Meth odist PHOSPHORUS LEVEL 2020-06-29 04:00:00 Mila Fitzgerald Met hodist PHENYTOIN LEVEL 2020-06-29 04:00:00 Mila Fitzgerald Meth odist ESTIMATED GFR 2020-06-29 04:00:00 Mila Fitzgerald Meth odist HC COMPLETE BLD COUNT 2020-06-28 05:00:00 Mila Fitzgerald [facility] W/AUTO DIFF BASIC METABOLIC PANEL 2020-06-28 04:00:00 Mila Fitzgerald [facility] MAGNESIUM LEVEL 2020-06-28 04:00:00 Mila Fitzgerald Meth odist PHOSPHORUS LEVEL 2020-06-28 04:00:00 Mila Fitzgerald Met hodist PHENYTOIN LEVEL 2020-06-28 04:00:00 Mila Fitzgerald Meth odist FREE PHENYTOIN LEVEL 2020-06-28 04:00:00 Mila Fitzgerald ESTIMATED GFR 2020-06-28 04:00:00 Mila Fitzgerald Meth odist EEG AWAKE/ASLEEP LESS 2020-06-27 17:27:27 [place] THAN 41 MIN BASIC METABOLIC PANEL 2020-06-27 05:00:00 Mila Fitzgerald HC COMPLETE BLD COUNT 2020-06-27 05:00:00 Mila Fitzgerald W/AUTO DIFF MAGNESIUM LEVEL 2020-06-27 05:00:00 Mila Fitzgerald odist PHOSPHORUS LEVEL 2020-06-27 05:00:00 Mila Fitzgerald hodist PHENYTOIN LEVEL 2020-06-27 05:00:00 Mila Fitzgerald odist FREE PHENYTOIN LEVEL 2020-06-27 05:00:00 Mila Fitzgerald ESTIMATED GFR 2020-06-27 05:00:00 Mila Fitzgerald odadriano SODIUM LEVEL, URINE, 2020-06-26 21:12:00 Gonzalo Watkins RANDOM OSMOLALITY, URINE 2020-06-26 21:12:00 Gonzalo Watkins OSMOLALITY, SERUM 2020-06-26 19:10:00 Gonzalo Watkins HCG QUALITATIVE, URINE 2020-06-26 18:50:00 Gonzalo Watkins SCREEN PROTHROMBIN TIME WITH INR 2020-06-26 16:30:00 Mila Fitzgerald PARTIAL THROMBOPLASTIN 2020-06-26 16:30:00 Mila Fitzgerald on [facility] TIME (PTT) HC COMPLETE BLD COUNT 2020-06-26 16:30:00 Mila Fitzgerald W/AUTO DIFF XR ABDOMEN ACUTE INC 2020-06-26 13:54:27 Gonzalo Watkins CHEST 1V HC COMPLETE BLD COUNT 2020-06-26 12:26:00 Mila Fitzgerald W/AUTO DIFF BASIC METABOLIC PANEL 2020-06-26 11:25:00 Mila Fitzgerald ESTIMATED GFR 2020-06-26 11:25:00 Mila Fitzgerald Meth [...] Watkins SMEAR REVIEW 2020-06-25 21:00:00 Gonzalo Watkins on [facility] COMPREHENSIVE METABOLIC 2020-06-25 20:12:00 Gonzalo Watkins PANEL PHENYTOIN LEVEL 2020-06-25 20:12:00 Gonzalo Watkins [facility] HC COMPLETE BLD COUNT 2020-06-25 11:53:00 Mina Gonzáles W/AUTO DIFF COMPREHENSIVE METABOLIC 2020-06-25 11:53:00 Mina Gonzálesist PANEL PREALBUMIN LEVEL 2020-06-25 11:53:00 Mina Gonzáles Met hodist MAGNESIUM LEVEL 2020-06-25 11:53:00 Mina Gonzáles Meth odist PHOSPHORUS LEVEL 2020-06-25 11:53:00 Mina Gonzáles Met hodist FREE PHENYTOIN LEVEL 2020-06-25 11:53:00 YeMina dotson Enrique [facility]abaptist ESTIMATED GFR 2020-06-25 11:53:00 NiviaMina Enrique Meth odist ACHR ABS, TITIN AB, STM 2020-06-25 11:53:00 Nivia Mina lemus [facility]ab[facility]ist ABS RFLX PANEL STRIATED MUSCLE ABS, IGG 2020-06-25 11:53:00 Mina Gonzáles TITER COVID-19 QUALITATIVE PCR 2020-06-25 10:39:00 Mina Gonzáles BASIC METABOLIC PANEL 2020-06-22 14:58:00 CristianMarilee PARTIAL THROMBOPLASTIN 2020-06-22 14:58:00 CristianMarilee ponce TIME (PTT) PROTHROMBIN TIME WITH INR 2020-06-22 14:58:00 CristianMarilee ponce CBC HEMOGRAM 2020-06-22 14:58:00 Marilee Foster M ethodist HEMOGLOBIN A1C 2020-06-22 14:58:00 Arlene Brumfield ethodist ESTIMATED GFR 2020-06-22 14:58:00 Crist[address]Marilee ponce M ethodist CT ABDOMEN PELVIS W 2020-06-19 01:41:06 Yovany Van [facility] CONTRAST COVID-19 QUALITATIVE PCR 2020-06-19 00:31:00 Yovany Van HC COMPLETE BLD COUNT 2020-06-19 00:31:00 Yovany Van W/AUTO DIFF COMPREHENSIVE METABOLIC 2020-06-19 00:31:00 Yovany Van PANEL LIPASE LEVEL 2020-06-19 00:31:00 Yovany Van Pr thodist ESTIMATED GFR 2020-06-19 00:31:00 Yovany Van Pr thodist URINE CULTURE 2020-06-18 23:56:00 Yovany Van Pr thodist URINALYSIS SCREEN AND 2020-06-18 23:56:00 Yovany Vanist MICROSCOPY, WITH REFLEX TO CULTURE HCG QUALITATIVE, URINE 2020-06-18 23:56:00 Yovany Van [facility] SCREEN COVID-19 QUALITATIVE PCR 2020-05-02 16:10:00 Daniel Turner Vini Enrique Piedra URINE CULTURE 2020-05-02 15:51:00 Turner, Daniel [place] Cecelia ethodist CT HEAD WO CONTRAST 2020-05-02 15:47:02 Daniel Turner on [facility]ab[facility]ist HC COMPLETE BLD COUNT 2020-05-02 15:30:00 Daniel Turner [facility] W/AUTO DIFF HCG QUALITATIVE, SERUM 2020-05-02 15:30:00 Daniel Turner Vini Eliot farooq Anabaptist SCREEN BASIC METABOLIC PANEL 2020-05-02 15:30:00 Daniel Turner [facility] ESTIMATED GFR 2020-05-02 15:30:00 Daniel Turner Vini Rai ethodist SMEAR REVIEW 2020-05-02 15:30:00 Turner, Daniel Rai ethodist URINALYSIS SCREEN AND 2020-05-02 15:28:00 Daniel Turner [facility] MICROSCOPY, WITH REFLEX TO CULTURE POC GLUCOSE 2020-04-06 17:27:00 Freddy Ocasio Meth odadriano RIBONUCLEIC ANTIBODY 2020-04-06 16:50:00 Ninfa Johnson on [facility]ab[facility]ist (SHOE SALESPERSON) Ninfa DOUBLE-STRANDED DNA 2020-04-06 16:50:00 Ninfa Johnson [facility] (DSDNA) ANTIBODIES, Ninfa CRITHIDIA CENTROMERE ANTIBODY 2020-04-06 16:50:00 Ninfa Johnson [facility]ist Aharben POTASSIUM LEVEL 2020-04-05 17:40:00 Reza Avelar Meth odadriano HOMOCYSTINE, PLASMA 2020-04-05 17:40:00 Reza Avelar EEG AWAKE/DROWSY LESS 2020-04-05 11:03:26 Reza Avelar THAN 41 MIN HC COMPLETE BLD COUNT 2020-04-05 04:00:00 Caesar Maxwell on [facility]ab[facility]ist W/AUTO DIFF VITAMIN B12 LEVEL 2020-04-05 04:00:00 Reza Avelar Me thodist C-REACTIVE PROTEIN 2020-04-05 04:00:00 Reza Avelar M ethodist HOMOCYSTINE, PLASMA 2020-04-05 04:00:00 Reza Avelar [facility] RHEUMATOID FACTOR 2020-04-05 04:00:00 Reza Avelar Me thodist THYROID STIMULATING 2020-04-05 04:00:00 Reza Avelar [facility] HORMONE T4, FREE 2020-04-05 04:00:00 Reza Avelar Meth odist T3 2020-04-05 04:00:00 Reza Avelar Meth odist SYPHILIS TOTAL ANTIBODY 2020-04-05 04:00:00 Reza Avelar [facility] HIV AG/AB COMBINATION 2020-04-05 04:00:00 Reza Avelar [facility] VITAMIN D 25 HYDROXY 2020-04-05 04:00:00 Reza Avelar [facility] LEVEL BASIC METABOLIC PANEL 2020-04-05 04:00:00 Caesar Maxwell on [facility]ist FOLATE LEVEL 2020-04-05 04:00:00 Caesar Maxwell Met hodadriano MAGNESIUM LEVEL 2020-04-05 04:00:00 Caesar Maxwell Met hodadriano ESTIMATED GFR 2020-04-05 04:00:00 Caesar Maxwell Met aleah COVID-19 QUALITATIVE PCR 2020-04-04 22:52:00 Max Ron oumingo Anabaptist CT HEAD WO CONTRAST 2020-04-04 21:17:59 Max Ron [facility] CBC HEMOGRAM 2020-04-04 21:00:00 Max Ron Me thodist SEDIMENTATION RATE 2020-04-04 21:00:00 Max Ron URINE CULTURE 2020-04-04 20:52:00 Max Ron Me thodist KEPPRA (LEVETIRACETAM) 2020-04-04 20:15:00 Max Ronu stoalberta [facility]ab[facility]ist LEVEL URINALYSIS SCREEN AND 2020-04-04 19:19:00 Max Ron ton [facility] MICROSCOPY, WITH REFLEX TO CULTURE URINE DRUGS OF ABUSE 2020-04-04 19:19:00 Max Ron Chandrika Ladd on [facility]ab[facility]ist SCREEN PROLACTIN LEVEL 2020-04-04 19:07:00 Max Ron Me thodist ECG 12-LEAD 2020-04-04 19:02:38 Max Ron Me thodist CRITICAL CARE 2020-04-04 18:48:10 Lila Byers Meth odist COMPREHENSIVE METABOLIC 2020-04-04 18:33:00 Max Ron Chandrika Mccabe uston [facility]abaptist PANEL LACTIC ACID LEVEL, SEPSIS 2020-04-04 18:33:00 Asaf Maxtheo Piedra - NOW AND REPEAT 2X EVERY 3 HOURS MAGNESIUM LEVEL 2020-04-04 18:33:00 Max Ron Chandrika [place] Me thodist PHOSPHORUS LEVEL 2020-04-04 18:33:00 Max Ron [place] M ethodist ESTIMATED GFR 2020-04-04 18:33:00 Max Ron [place] Me thodist PET BRAIN METABOLIC EVAL 2020-03-30 13:51:58 Richard Huizar Chandler stoalberta [facility]ab[facility]ist POC GLUCOSE 2020-03-30 12:29:00 Richard Huizar Nadege kitchenist MRI BRAIN W WO CONTRAST 2020-03-27 13:50:00 HuizarRichard [facility]ist MONITORED VIDEO-EEG 60 2020-03-15 12:14:01 HuizarPinky dotsonnina ewing Anabaptist HRS 1 MIN-74 HRS MONITORED W VIDEO DAILY 2020-03-15 00:12:21 Richard Huizar [facility] MONITORED W VIDEO DAILY 2020-03-14 00:24:17 HuizarRichard [facility] EEG SETUP 2020-03-13 00:17:20 Richard Huizar [place] Meth odist HC COMPLETE BLD COUNT 2020-03-12 14:18:00 Ulises Choudhary [facility] W/AUTO DIFF COMPREHENSIVE METABOLIC 2020-03-12 14:18:00 Ulises Choudhary [facility] PANEL ESTIMATED GFR 2020-03-12 14:18:00 Pinky Huizarnina [place] Meth odist MAGNESIUM LEVEL 2020-03-12 14:18:00 Richard Huizar Meth odadriano CT HEAD WO CONTRAST 2020-03-12 13:25:51 Ulises Choudhary COVID-19 QUALITATIVE PCR 2020-03-12 11:53:00 Ulises Choudhary [facility] UNMONITORED VIDEO-EEG 36 2019-11-15 09:41:23 Bina Bonds [...] PLATELET AND 2019-11-13 04:00:00 Caesar Maxwell on [facility] DIFFERENTIAL BASIC METABOLIC PANEL 2019-11-13 04:00:00 Caesar Maxwell on [facility] TOTAL IRON BINDING 2019-11-13 04:00:00 Caesar Maxwell CAPACITY FERRITIN LEVEL 2019-11-13 04:00:00 Caesar Maxwell Met hodist ESTIMATED GFR 2019-11-13 04:00:00 Caesar Maxwell Met hodist MANUAL DIFFERENTIAL 2019-11-13 04:00:00 Caesar Maxwell MRI BRAIN W WO CONTRAST 2019-11-13 02:16:00 Bina Bonds CONSULT TO OSTOMY CARE 2019-11-12 23:40:27 Caesar Maxwell [facility] NURSE ECG 12-LEAD 2019-11-12 21:10:47 Bina Bonds MARCELINO 2019-11-12 19:40:00 Bina Bonds [facility] FOLATE LEVEL 2019-11-12 19:40:00 Bina Bonds [facility] VITAMIN B12 LEVEL 2019-11-12 19:40:00 Bina Bonds [facility] C-REACTIVE PROTEIN 2019-11-12 19:40:00 Bina Bonds on [facility] HOMOCYSTINE, PLASMA 2019-11-12 19:40:00 Bina Bonds [facility] CORTISOL LEVEL, RANDOM 2019-11-12 19:40:00 Bina Bondsston [facility] SEDIMENTATION RATE 2019-11-12 19:40:00 Bina Bonds on [facility]ab[facility] RHEUMATOID FACTOR 2019-11-12 19:40:00 Bina Bonds [facility] THYROID STIMULATING 2019-11-12 19:40:00 Bina Bonds [facility] HORMONE T4, FREE 2019-11-12 19:40:00 Bina Bonds [facility] SYPHILIS TOTAL ANTIBODY 2019-11-12 19:40:00 Bina Bonds [facility] HIV AG/AB COMBINATION 2019-11-12 19:40:00 Bina Bondston [facility] VITAMIN D 25 HYDROXY 2019-11-12 19:40:00 Bina Bonds stoalberta [facility] LEVEL CREATINE KINASE, TOTAL 2019-11-12 19:40:00 Shari Bailey on [facility]abaptist (CPK) Adolfo PROLACTIN LEVEL 2019-11-12 19:40:00 Shari Bailey Meth odist Adolfo MARCELINO TITER 2019-11-12 19:40:00 Shari Bailey Meth odist Adolfo CT CERVICAL SPINE WO 2019-11-12 18:12:54 Shari Bailey [facility] CONTRAST Adolfo CT MAXILLOFACIAL WO 2019-11-12 18:09:40 Shari Bailey [facility] CONTRAST Adolfo CT HEAD WO CONTRAST 2019-11-12 18:09:19 Shari Bailey [facility] Adolfo XR CHEST 1 VW PORTABLE 2019-11-12 17:35:36 Bailey, Shari Ladd on Anabaptist Adolfo HC COMPLETE BLD COUNT 2019-11-12 17:04:00 Shari Bailey W/AUTO DIFF Adolfo COMPREHENSIVE METABOLIC 2019-11-12 17:04:00 Shari Bailey [facility] PANEL Adolfo ALCOHOL LEVEL, BLOOD 2019-11-12 17:04:00 Shari Baileyist Adolfo KEPPRA (LEVETIRACETAM) 2019-11-12 17:04:00 Shari Bailey on [facility]ab[facility]ist LEVEL Adolfo ESTIMATED GFR 2019-11-12 17:04:00 Shari Bailey Meth odist Adolfo URINE CULTURE 2019-11-12 14:44:00 Keanu Flores Meth odist URINALYSIS SCREEN AND 2019-11-12 14:44:00 Keanu Flores MICROSCOPY, WITH REFLEX TO CULTURE HCG QUALITATIVE, URINE 2019-11-12 14:44:00 Keanu Flores on [facility] SCREEN URINE DRUGS OF ABUSE 2019-11-12 14:44:00 Keanu Floresist SCREEN Plan of Care Planned Activity Planned Date Details Comments Source Future Scheduled Test 2021-01-13 INFLUENZA VACCINE H oumingo [facility] 00:00:00 [code = INFLUENZA VACCINE] Future Scheduled Test 2010 Screening for [place] on [facility] 00:00:00 malignant neoplasm of cervix (procedure) [code = 376761268] Future Scheduled Test 2007-11-08 Hepatitis C Luz n [facility] 00:00:00 screening (procedure) [code = 882950461] Future Scheduled Test 2001 COVID-19 VACCINE Ho ton [facility] 00:00:00 (1) [code = COVID-19 VACCINE (1)] Future Appointment 2020-11-06 Marilee Foster MD, [address] 07:30:00 [facility]; [address], [place] [address] Future Appointment 2020-11-06 Marilee Foster MD, [address] 07:30:00 [facility]; [address], [place] [address] Future Appointment 2020-11-06 Arlene Brumfield Enrique Piedra 07:30:00 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 SPECIALIST, [address] [facility], [place] [address] Encounters Start End Encounter Admission Attending Care Care Encounter Source Date/Time Date/Time Type Type Clinicians Facility Department ID 2020-11-02 2020-11-02 Outpatient MARILEE FOSTER [facility] [id number] [place] 00:00:00 00:00:[address] 2020-10-23 2020-10-23 Transition ELVIA Damian [id number] 00:00:00 00:00:00 of Care Fanny A KEIKO [id number] [facility] [id number] 2020-10-04 2020-10-04 Outpatient RICHARD HUIZAR [facility] [id number] [place] 00:00:00 00:00:[address] 2020-10-04 2020-10-04 Emergency MOJGAN, [facility] 064 [id number] [place] 00:00:00 00:00:00 POPPY [address] 2020-09-26 2020-09-26 Outpatient MARILEE FOSTER [facility] [id number] [place] 00:00:00 00:00:[address] 2020-09-19 2020-09-19 Transition ELVIA Damian [id number] 00:00:00 00:00:00 of Care Fanny Nila KEIKO [id number] [facility] [id number] 2020-09-10 2020-09-13 Inpatient ARYA, [facility] 064 [id number] [place] 00:00:00 00:00:00 ROSALIE [address] 2020-09-04 2020-09-04 Patient SENDY Matos [id number] 00:00:00 00:00:00 Outreach Papo KIM [id number] [facility] [id number] DAVE [id number] 2020-07-26 2020-07-26 [facility] Darvin Daily [id number] 09:42:44 23:59:00 Encounter Keiko [id number] [facility] [id number] 2020-06-25 2020-06-29 Inpatient LEO, [facility] [id number] [place] 00:00:00 00:00:00 MILA [address] 2020-06-25 2020-06-25 Outpatient CHIHARA, [facility] [id number] [place] 00:00:00 00:00:00 RAY [address] 2020-06-25 2020-06-25 Outpatient YEA, [facility] [id number] [place] 00:00:00 00:00:00 RAY [address] 2020-06-22 2020-06-22 Outpatient CRISTIAN, MARILEE [facility] [id number] [place] 00:00:00 00:00:[address] 2020-06-18 2020-06-19 Emergency TOYA, [facility] 064 [id number] [place] 00:00:00 00:00:00 BEAU [address] 2020-05-15 2020-05-15 Outpatient MARILEE FOSTER [facility] [id number] [place] 00:00:00 00:00:[address] 2020-05-02 2020-05-02 Emergency ANTHONY, [facility] 064 [id number] [place] 00:00:00 00:00:00 DANIEL [address] 2020-04-26 2020-04-26 Outpatient HUIZAR, RICHARD [facility] [id number] [place] 00:00:00 00:00:[address] 2020-04-04 2020-04-07 Inpatient AHMED, [facility] 064 [id number] [place] 00:00:00 00:00:00 YAHYA [address] 2020-03-30 2020-03-30 Outpatient HUIZAR, RICHARD [facility] [id number] [place] 00:00:00 00:00:[address] 2020-03-27 2020-03-27 Outpatient HUIZAR, RICHARD [facility] [id number] [place] 00:00:00 00:00:[address] 2020-03-12 2020-03-15 Inpatient HUIZAR, RICHARD [facility] 016 [id number] [place] 00:00:00 00:00:[address] 2020-02-16 2020-02-16 Outpatient RICHARD HUIZAR [facility] [id number] [place] 00:00:00 00:00:[address] 2019-11-12 2019-11-15 Inpatient LIANA, [facility] 064 [id number] [place] 00:00:00 00:00:00 ADRIAN [address] Results Test Description Test Time Test Comments Results Result Comments Source ECG Pre/Post Op 2020-11-02 18:39:44 Test Item Value Reference Range Interpretation Comme nts Ventricular rate (test code = 253) 85 Atrial rate (test code = 255) 85 AL interval (test code = 266) 154 QRSD interval (test code = 260) 86 QT interval (test code = 264) 368 QTC interval (test code = 265) 437 P axis 1 (test code = 267) 38 QRS axis 1 (test code = 268) 16 T wave axis (test code = 270) 23 EKG impression (test code = 273) Normal sinus rhythm-Normal ECG-In automated comparison with ECG of 04-OCT-2020 11:22,-No significant change was found- Enrique Rosario 12 [id number] 22:01:49 Test Item Value Reference Range Interpretation Comments Ventricular rate (test 79 code = 253) Atrial rate (test code = 79 255) AL interval (test code = 148 266) QRSD interval (test code 74 = 260) QT interval (test code = 368 264) QTC interval (test code = 421 265) P axis 1 (test code = 27 267) QRS axis 1 (test code = 64 268) T wave axis (test code = 46 270) EKG impression (test code Normal sinus rhythm = 273) with sinus arrhythmia-Krystali juana Signed By Ambrosio MENDOZA, [facility] ([id number]) on 10/04/2020 10:01:47 PM Enrique Bowman [id number] 20:20:59 Test Item Value Reference Range Interpretation Comments Urine culture Mixed prem Specimen isolate (test <=10-3 col/cc InformationSp ecimen code = 08298-4) Source: Urin eSpecimen Site: Clean cat tara [facility] Wo [id number] 21:41:56Hm Interface, Radiology Results Incoming - 09/10/2020 9:44 PM CDTFormatting of this note [...] intracranial abnormality identified.[id number] Chest 1 Vw [id number] 17:40:12Hm Interface, Radiology Results Incoming - 09/10/2020 5:43 PM CDTFormatting of this note might be di fferent from the original.SINGLE VIEW CHEST, 09/10/2020linical History: Seizure.Technique: Single, portable AP view chest.Comparison: 11/12/2019Impression:1.Lungs are clear and symmetrically inflated.2.No pleural effusions or pneumothorax.3.Normal heart size and mediastinal contour for technique.4.Normal pulmonary vasculature.5.Intact skeleton.[facility] (routine)2020-06-28 08:27:01VIDEO-EEG RECORDING AWAKE & DROWSY. [...] were captured. Jojo Cruz MD ICD-10 Code: I891Nrtbb[facility]XR Abdomen Acute Inc [id number] 14:14:14Hm Interface, Radiology Results Incoming - 06/26/2020 [...] evident.Bones/Other: Unremarkable.1D2RAD_PS01[facility] MethodistVENIPUNC NEED PHYS SKILL,DX OR [id number] 10:40:22Juanita Matthew RN 06/26/2020 10:42 AMMidline Insertion [...] 3 Indication: Poor venous access and known technician terminal and repeater IV therapy Location: Right basilic Device Type: Non-valved Catheter Lumen(s): Single lumen Catheter size: 4 FrMidLine Characteristics: Catheter Brand: The Solution Design GroupFlo Midline External Catheter Length (cm):0 Internal Catheter Length (cm): 11 Total Catheter Length (cm): 11 Catheter Lot Number: [id number] Catheter Expiration Date: 1Procedure details: Landmarks identified: yes Ultrasound guidance: yes [...] applied Blood Loss Amount: Less than 20 mLProgreso MethodistCT Abdomen Pelvis W Wivjodjo2652-26-26 01:50:17Hm Interface, Radiology Results 06/19/2020 1:53 AM [...] nondistended.Osseous structures are intact.IMPRESSION:No acute process.Small hiatal hernia.RM-KTKQQM1Dkcnmsg MethodistEpilepsy/Seizure yyzovqhiwu0116-88-42 09:01:11EPILEPSY MONITORING UNIT REPORT Patient Name: Heather [...] left frontal central temporal region. ICD-10 Code: Q341Cudnhwu MethodistEpilepsy/Seizure monitoring 2020-04-23 09:00:05EPILEPSY MONITORING UNIT REPORT [...] left frontal central temporal region. ICD-10 Code: Q710Ljkpinb [facility] Epilepsy/Seizure fqghlewgkh8659-70-32 08:55:34EPILEPSY MONITORING UNIT REPORT Patient Name: Heather [...] left frontal central temporal region. ICD-10 Code: B418Oejjcir [facility] Epilepsy/Seizure lbhrxsoabm3155-48-64 08:45:34EPILEPSY MONITORING UNIT REPORT Patient Name: Heather [...] left frontal central temporal region. ICD-10 Code: M928Kidroac MethodistEEG (routine)2020-04-05 11:50:53VIDEO-EEG RECORDING AWAKE & ASLEEP. [...] with complains of increased seizurefrequency referred for video-EEG to evaluate for seizures. Findings: Background: The background is continuous, composed [...] are captured. Jojo Cruz MD ICD-10 Code: U670Zoxvsjc MethodistCRITICAL LXBC2765-04-58 18:48:10BMax gleason MD 04/20/2020 3:37 PMCritical CarePerformed by: Lila ByersAuthorized by: Max Ron MD Critical care provider statement: Critical care time (minutes): 20 Critical care was necessary to treat or prevent imminent or life-threatening deterioration of the following conditions: LABORATORY SAMPLER failure or compromise Critical care was time [...] from another provider.: Hawa PiedraPET Brain Metabolic Fjkc4412-63-70 14:42:07Hm Interface, Radiology Results Incoming - 03/30/2020 2:45 PM CDTFormatting of this note might be di fferent from the original.PROCEDURE: PET BRAIN METABOLIC EVALINDICATION: R56.9 Unspecified convulsions, [...] interictal study.2.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 ICD-10 Code: R56.9[facility] MethodistContinuous EEG epjecpfkjj8146-23-38 07:42:19CONTINUOUS VIDEO-EEG MONITORING REPORT Patient Name: Heather [...] independently. No seizures occurred. ICD-10 Code: R56.9[facility] Continuous EEG xehzbbydym7832-52-60 07:19:24 CONTINUOUS VIDEO-EEG MONITORING REPORT Patient Name: [...] regions independently. No seizures occurred. ICD-10 Code: R56.9[facility] MethodistEEG (routine) - Baseline FPV2372-09-34 06:43:32EEG RECORDING AWAKE & ASLEEP - Baseline [...] findings. Toya Rojo MethodistCT Cervical Spine Wo Amkqvcfn5985-44-16 18:17:20 Hm Interface, Radiology Results 11/12/2019 6:20 [...] fracture or subluxation identified in the cervical spine.[facility]-1ZX1832P07Liqshas MethodistCT Maxillofacial Wo Qbzqxhzr7129-76-50 18:15:46Hm Interface, Radiology Results 11/12/2019 6:18 PM [...] soft tissues are unremarkable.The paranasal sinuses are clear.[facility]-3FB83256YMQvvojbv MethodistRPR Ifwdkwvdjmr4629-39-46 16:47:08 Test Item Value Reference Range Interpretation [...] = 06-14-2020 N Expiration Dt) Thyroid Stimulating Utuqdoj3703-27-98 06:31:44 Test Item Value Reference Range Interpretation Comments TSH (test code = TSH) 3.830 mIU/mL 0.270-4.200 Lipid Hfrrq6419-76-66 06:24:40 Test Item Value Reference Range Interpretation [...] LDL/HDL Ratio=L DL Calc/HDL Chol Urine Drug Ajwheg9228-93-57 21:53:06 Test Item Value Reference Range Interpretation [...] if desired . Urinalysis with Culture, if zwbartiyu5336-58-78 21:40:53 Test Item Value Reference Range Interpretation [...] Indicated Not Indicated Micro Ind?) Comprehensive Metabolic Atkmu3616-25-46 21:34:15 Test Item Value Reference Range Interpretation [...] = A/G 1.6 ratio N Ratio) Alcohol Dgznr8961-94-26 21:34:15 Test Item Value Reference Range Interpretation Comments Ethanol Level (test <0.00 g/dL 0.00-0.01 Intoxica vandana 0.080 g/dL code = Ethanol or more Level) Ethanol Inst (test <0 N code = Ethanol Inst) Comprehensive Metabolic Bejhj4654-87-07 21:34:15 Test Item Value Reference Range Interpretation [...] National Kidney Foundation, http://nkdep.ni h.gov Comprehensive Metabolic Xcbqz7620-00-79 21:34:15 Test Item Value Reference Range Interpretation [...] ag e have not been validated by [facility] MDRD study and should be [...] ag e have not been validated by [facility] MDRD study and should be interpreted wit h caution. eGFR R esult Interpretation: eGFR > or = 60 is in the Normal RangeeGF R < 60 may mean kid shannan diseaseeGFR < 1 5 may mean kidney failure Rang es recommended by the National Kidney Foundation, http://nkdep.ni h.gov Automated Wihcgjefoduj3441-37-32 21:15:24 Test Item Value Reference Range Interpretation Comments Neutro Auto (test code = Neutro 54.3 % 36.0-70.0 Auto) Lymph Auto (test code = Lymph Auto) 32.3 % 12.0-44.0 Owsley Auto (test code = Owsley Auto) 11.1 % 0.0-11.0 H Eos, Auto (test code = Eos, Auto) 1.3 % 0.0-7.0 Basophil Auto (test code = Basophil 0.7 % 0.0-2.0 Auto) Neutro Absolute (test code = Neutro 6.2 x10 1.6-7.4 Absolute) Lymph Absolute (test code = Lymph 3.71 x10 .50-4.60 Absolute) Owsley Absolute (test code = Owsley 1.28 x10 .00-1.20 H Absolute) Eos Absolute (test code = Eos 0.15 x10 0.00-0.74 Absolute) Baso Absolute (test code = Baso 0.08 x10 0.00-0.21 Absolute) IG Etvyd7553-20-63 21:15:24 Test Item Value Reference Range Interpretation Comments IG (test code = IG) 0.3 % 0.0-5.0 IG Abs (test code = IG Abs) 0 x10 N Complete Blood Count with Srxdsucsfvar7917-62-62 21:15:24 Test Item Value Reference Range Interpretation [...] (test code = IPF) 0 % N HCG Qualitative Httny2057-66-70 20:45:17 Test Item Value Reference Range Interpretation [...] 72 hours. Lot # (test code = [id number] N Lot #) Expiration Dt (test 2020-12-12 N code = Expiration Dt) Neg Control (test Negative code = Neg Control) Pos Control (test Positive code = Pos Control) Internal QC (test Acceptable code = Internal QC) RPR Iwvqgpffdgc4223-62-80 12:07:58 Test Item Value Reference Range Interpretation [...] = 04-14-2020 N Expiration Dt) Thyroid Stimulating Vngrelw7942-91-53 07:59:52 Test Item Value Reference Range Interpretation Comments TSH (test code = TSH) 0.717 mIU/mL 0.270-4.200 Lipid Xzllg1532-11-92 07:52:46 Test Item Value Reference Range Interpretation [...] LDL/HDL Ratio=L DL Calc/HDL Chol Urine Drug Nnjsop8819-68-08 15:27:40 Test Item Value Reference Range Interpretation [...] matory test if desired . Comprehensive Metabolic Mioce2575-37-88 15:15:20 Test Item Value Reference Range Interpretation [...] A/G 1.9 ratio N Ratio) Comprehensive Metabolic Ltkpq5850-25-35 15:15:20 Test Item Value Reference Range Interpretation [...] the National Kidney Foundation, http://nkdep.ni h.gov Alcohol Odcjv3251-44-76 15:15:20 Test Item Value Reference Range Interpretation Comments Ethanol Level (test <0.00 g/dL 0.00-0.01 Intoxica vandana 0.080 g/dL code = Ethanol or more Level) Ethanol Inst (test <0 N code = Ethanol Inst) Comprehensive Metabolic Zhuou6472-69-97 15:15:20 Test Item Value Reference Range Interpretation [...] the National Kidney Foundation, http://nkdep.ni h.gov Urinalysis Exejjniawrt8601-23-90 15:11:20 Test Item Value Reference Range Interpretation Comments UA WBC (test code = UA WBC) 6-10 0-5 A UA RBC (test code = UA RBC) 0-5 0-5 UA Bacteria (test code = UA Moderate A Bacteria) UA Squam Epithelial (test code = UA TNTC A Squam Epithelial) UA Mucous (test code = UA Mucous) Few A Urinalysis with Microscopic if oehzbpbnq9695-84-73 14:42:58 Test Item Value Reference Range Interpretation [...] GL_SJM_UA_MICRO _IN D Complete Blood Count with Ppbtiiospgdu3323-15-34 14:37:26 Test Item Value Reference Range Interpretation [...] code = IPF) 0 % N Automated Hgfyjhgdzijr1519-13-99 14:37:26 Test Item Value Reference Range Interpretation Comments Neutro Auto (test code = Neutro 65.8 % 36.0-70.0 Auto) Lymph Auto (test code = Lymph Auto) 25.5 % 12.0-44.0 Owsley Auto (test code = Owsley Auto) 7.3 % 0.0-11.0 Eos, Auto (test code = Eos, Auto) 0.7 % 0.0-7.0 Basophil Auto (test code = Basophil 0.5 % 0.0-2.0 Auto) Neutro Absolute (test code = Neutro 6.0 x10 1.6-7.4 Absolute) Lymph Absolute (test code = Lymph 2.34 x10 .50-4.60 Absolute) Owsley Absolute (test code = Owsley .67 x10 .00-1.20 Absolute) Eos Absolute (test code = Eos 0.06 x10 0.00-0.74 Absolute) Baso Absolute (test code = Baso 0.05 x10 0.00-0.21 Absolute) IG [id number] 14:37:26 Test Item Value Reference Range Interpretation Comments IG (test code = IG) 0.2 % 0.0-5.0 IG Abs (test code = IG Abs) 0 x10 N HCG Qualitative [id number] 14:34:08 Test Item Value Reference Range Interpretation [...] 72 hours. Lot # (test code = [id number] N Lot #) Expiration Dt (test 2020-03-14 N code = Expiration Dt) Neg Control (test Negative code = Neg Control) Pos Control (test Positive code = Pos Control) Internal QC (test Acceptable code = Internal QC) DRUGS OF ABUSE SCREEN [id number] 17:11:00 Test Item Value Reference Range Interpretation [...] = [place]) concentrati on: 300 ng/mL URINALYSIS [id number] 17:08:00 Test Item Value Reference Range Interpretation [...] (test code = MOD NONE BACU) URINALYSIS [id number] 17:00:00 Test Item Value Reference Range Interpretation [...] (test code = NONE BACU) HCG SERUM [id number] 16:52:00 Test Item Value Reference Range Interpretation Comments HCG SERUM QUAL (test code = HCGQL) NEGATIVE NEGATIVE - CT HEAD/BRAIN W/O [id number] 16:51:00 FAX: Theresa Fields MD Arabi: St: REG Name: HEATHER HOPE [facility] : 1990 Age/S: 28/F [address] [facility] Unit: [id number] Loc: [place], [place] Phys: [place] [id number] Acct: [id number] Dis Date: Status: REG ER PHONE #: [phone] Exam Date: 02/23/2019 1642 FAX #: [phone] Reason: SEIZURE EXAMS: CPT CODE: [id number] CT HEAD/BRAIN W/O CONT 52077 Dictation location: U19. CT HEAD WITHOUT CONTRAST. [...] MD Technologist: HEATHER DICKSON Trnscrd Dt/Tm: 02/23/2019 (9502) t.GAVIOTAR.SP17 Orig Print D/T: S: 02/23/2019 (0274 PAGE 1 Signed ReportBASIC METABOLIC [id number] 16:31:00 Test Item Value Reference Range Interpretation [...] CA) 8.8 mg/dl 8.0-10.5 N BASIC METABOLIC [id number] 16:26:00 Test Item Value Reference Range Interpretation [...] code = CA) mg/dl 8.0-10.5 CBC W/AUTO [id number] 16:15:00 Test Item Value Reference Range Interpretation [...] 3-60 N code = VLDL) RAPID PLASMA [id number] 10:31:00 Test Item Value Reference Range Interpretation Comments RAPID PLASMA REAGIN (test code = Nonreactive Nonreactive RPR) GLYCOSYLATED HEMOGLOBIN (HA1C)2018-12-07 10:05:00 Test Item Value Reference Range Interpretation Comments GLYCOSYLATED HEMOGLOBIN (HA1C) 5.8 % TOT HB 4.5-6.2 N (test code = GLYHGB) [id number] 15:31:00 Test Item Value Reference Range Interpretation Comments ACETAMINOPHEN (test < 1 MCG/ML 10-30 L Acetamin ophen is code = ACET) possibly toxic at levels of: 1. m ore than 150 MCG/ML 4 hours post kaylin stion. 2. more than 5 0 MCG/ML 12 hours post ingestion. [id number] 15:31:00 Test Item Value Reference Range Interpretation Comments SALICYLATE (test code = < 3 MG/DL 0-20 N Refe rence Range: BOSSMAN) Analgesic...... ...... ...... < 10 mg /dl Therapeutic.... ...... ...... 15-20 mg /dl Mild Toxicity....... ...... . > 30 mg/dl Severe Toxicity....... ..... > 60 mg/dl UA RFLX [id number] 14:18:00 Test Item Value Reference Range Interpretation [...] Clean Catch (test code = UASPEC) UA [id number] 14:18:00 Test Item Value Reference Range Interpretation Comments UA WBC (test code = WBCU) < 10 #/hpf <10 UA RBC (test code = RBCU) 0-2 #/hpf NONE SEEN A UA BACTERIA (test code = BACU) RARE #/hpf NONE SEEN UA SQUAMOUS CELLS (test code = 0 - 20 #/lpf <100 SQU) UA MUCUS (test code = MUCU) 1+ #/lpf NONE SEEN BASIC METABOLIC [id number] 14:16:00 Test Item Value Reference Range Interpretation [...] 9.4 MG/DL 8.7-10.5 N CA) HEPATIC FUNCTION [id number] 14:16:00 Test Item Value Reference Range Interpretation [...] 50-136 N TOTAL (test code = ALKP) [id number] 14:16:00 Test Item Value Reference Range Interpretation Comments CK (test code = CKT) 87 Units/L 26-192 N [id number] 14:16:00 Test Item Value Reference Range Interpretation Comments ALCOHOL (test code = < 3 MG/DL 0-10 N 0 - 10: Should be ALC) interpreted as NEGATIVE. 11 - 50: None to mild euphoria. 51 - 100: Mild influence on vision and dark adapta tion. > 80: Legal intoxication; D epression of LABORATORY SAMPLER; Increasing degr ee of poisoning. > 400: Fatalities repo rted. Results are for medical purposes only a nd not forlegal or emp loyment evaluative purp oses. BASIC METABOLIC [id number] 14:09:00 Test Item Value Reference Range Interpretation [...] 9.4 MG/DL 8.7-10.5 N CA) HEPATIC FUNCTION [id number] 14:09:00 Test Item Value Reference Range Interpretation [...] TOTAL (test Units/L 50-136 code = ALKP) [id number] 14:09:00 Test Item Value Reference Range Interpretation Comments CK (test code = CKT) Units/L 26-192 [id number] 14:09:00 Test Item Value Reference Range Interpretation Comments ALCOHOL (test code = ALC) MG/DL 0-10 LACTIC ACID [id number] 13:50:00 Test Item Value Reference Range Interpretation Comments LACTIC ACID POC 0.97 MMOL/L 0.90-1.70 N Performed by certified (test code = LACTP) senior system operator at [facility] [id number] 13:48:00 Test Item Value Reference Range Interpretation Comments GLUBED (test code = 88 MG/DL 65-99 N Performe d by certified GLUBED) senior system operator at [facility] DRUG OF ABUSE SCREEN [id number] 13:43:00 Test Item Value Reference Interpretation Comments [...] by [place] rader methods (i.e., GC/MS) at [facility]. Results of scre en may not be usedin crimi nal justice, job performance or professionalcre dential review, or infa nt custody issues. Negativ e [place] Level ng/ml ------- ----- Cocaine 300 Methamp hetamine (Ecstacy) 500 Cannabinoids (THC) 50 Amphetamine 1000 Barbiturate s 200 Benzodia zepines 200 Opiat es 300 Ph encyclidine (PCP) 25 UR HCG [id number] 13:39:00 Test Item Value Reference Range Interpretation [...] using aquantitative h CG assay. UA RFLX [id number] 13:38:00 Test Item Value Reference Range Interpretation [...] Clean Catch (test code = UASPEC) UA [id number] 13:38:00 Test Item Value Reference Range Interpretation Comments UA WBC (test code = WBCU) #/hpf <10 UA RBC (test code = RBCU) #/hpf NONE SEEN UA SQUAMOUS CELLS (test code = SQU) #/lpf <100 UA RFLX [id number] 13:38:00 Test Item Value Reference Range Interpretation [...] Clean Catch (test code = UASPEC) UA [id number] 13:38:00 Test Item Value Reference Range Interpretation Comments UA WBC (test code = WBCU) #/hpf <10 UA RBC (test code = RBCU) #/hpf NONE SEEN UA SQUAMOUS CELLS (test code = SQU) #/lpf <100 CBC W/AUTO [id number] 13:26:00 Test Item Value Reference Range Interpretation [...] = BA#) 0.05 x10 3/uL 0.0-0.2 N [id number] 19:07:00 Test Item Value Reference Interpretation Comments Range LEVETIRACETAM 28.7 ug/mL 10.0-40.0 This test was developed and (test code = its performance LEVTAM) characteristics determined by [facility]. It has not been cleared orappro froylan by the Food and Drug Administration. Performed At: [id number] [place], [place] [id number] ra Larissa MENDOZA Ph:[phone] BASIC METABOLIC [id number] 04:58:00 Test Item Value Reference Range Interpretation [...] code = 8.9 MG/DL 8.7-10.5 N CA) [id number] 04:58:00 Test Item Value Reference Range Interpretation Comments MAGNESIUM (test code = MAG) 1.9 MG/DL 1.8-2.4 N CBC W/AUTO [id number] 04:08:00 Test Item Value Reference Range Interpretation [...] 0.0-0.2 N NRBC#) - MRI BRAIN W/O [id number] 13:51:00 Patient Name: HEATHER HOPE NOVEMBER Unit No: [id number] EXAMS: CPT CODE: [id number] MRI BRAIN W/O CONTRAST 67496 Reason: sz INDICATION: Seizure COMPARISON: CT brain, [...] MD Technologist: Andre Self MRI Trscrpt Dt/ (0073)AngeliqueDW6 Orig Print D/T: S: 09/17/2018 (3685) [facility] CntNAME: HEATHER HOPE NOVEMBER [address] PHYS: Felecia Dominguez MD [facility] [place] [address] : 1990 AGE: 27 SEX: F LOC: D.D313 1 PHONE #: [phone] EXAM DATE: 09/17/2018 STATUS: ADM IN FAX #: RAD NO: DC Dt: PAGE 1 Signed [id number] 07:25:00 Test Item Value Reference Range Interpretation Comments PROLACTIN (test code = 24.6 ng/mL 4.8-23.3 H Perfo rmed At: HD PROLAC) [facility] [id number] Sb Man MD Ph:[phone] UA RFLX MICROSCOPIC [id number] 19:02:00 Test Item Value Reference Range Interpretation [...] UACULT) URINE SOURCE: Clean CatchUA RFLX MICROSCOPIC [id number] 18:56:00 Test Item Value Reference Range Interpretation [...] (test code = UACULT) URINE SOURCE: Clean [id number] 15:56:00 Test Item Value Reference Range Interpretation Comments CK (test code = CKT) 34 Units/L 26-192 N BASIC METABOLIC [id number] 12:57:00 Test Item Value Reference Range Interpretation [...] code = 8.6 MG/DL 8.7-10.5 L CA) [id number] 12:57:00 Test Item Value Reference Range Interpretation Comments CK (test code = CKT) 32 Units/L 26-192 N CBC W/AUTO [id number] 12:33:00 Test Item Value Reference Range Interpretation [...] 3/uL 0.0-0.2 N NRBC#) TOTAL IRON BINDING [id number] 05:50:00 Test Item Value Reference Range Interpretation Comments SERUM IRON (test code = IRON) 17 MCG/DL 50-170 L TOTAL IRON BINDING CAPACITY (test 363 MCG/DL 280-400 N code = TIBC) IRON SATURATION (test code = 5 % 15-50 L FESAT) [id number] 05:50:00 Test Item Value Reference Range Interpretation Comments FERRITIN (test code = LULI) 11 NG/ML 3-105 N HEPATIC FUNCTION [id number] 05:32:00 Test Item Value Reference Range Interpretation [...] Result s of this ALT) assay method ida y be falsely depress ed orelevated if patient is taki ng sulfasalazine. ALKALINE PHOSPHATASE 100 Units/L 50-136 N TOTAL (test code = ALKP) - CT HEAD/BRAIN W/O [id number] 20:19:00 Patient Name: HEATHER HOPE Unit No: [id number] EXAMS: CPT CODE: [id number] CT HEAD/BRAIN W/O CONT 72143 Reason: seizure TECHNIQUE: Contiguous 5 mm images [...] Heath Technologist: Edel Cade CT Trscrpt Dt/ (2018)t.PAMELA Orig Print D/T: S: 09/14/2018 (2021) CTDI: DLP: [facility] NAME: FOUNTAINMELIHEATHER [facility] PHYS: NGA. - Keanu Váz[place] [address] : 1990 AGE: 27 SEX: F LOC: D.KIN PHONE#: [phone] EXAM DATE: 09/14/2018 STATUS: REG ER FAX #: RAD NO: DC Dt: PAGE 1 Signed Report- XR CHEST 1 [id number] 20:18:00 [facility] Unit No: [id number] EXAMS: CPT CODE: [id number] XR CHEST 1 V 24469 Reason: screen for pneumonia FINDINGS: Single view ofthe chest shows normal heart size and pulmonary vasculature. The lungs are clear bilaterally. There is no focal infiltrate, pleural effusion or pneumothorax. IMPRESSION: No a cute cardiopulmonary findings at 2018 Reported and signed by: Lashell Jimenez MD CC: Keanu Vázquez MD; Cristiane Heath Technologist: Edel Cade CT Trscrpt Dt/ (2017)Tristan Orig PrintD/T: S: 09/14/2018 (2020) [facility] NAME: NADINE HOPEICA November [facility] PHYS: NGA. - Keanu Váz[place] [address] : 1990 AGE: 27 SEX: F LOC: MATT PHONE #: [phone] EXAM DATE: STATUS: REG ER FAX #: RAD NO: DC Dt: PAGE 1 Signed ReportHCG SERUM [id number] 20:04:00 Test Item Value Reference Range Interpretation [...] using aquantitative h CG assay. BASIC METABOLIC [id number] 19:51:00 Test Item Value Reference Range Interpretation [...] 9.3 MG/DL 8.7-10.5 N CA) CBC W/AUTO [id number] 19:46:00 Test Item Value Reference Range Interpretation [...] BA#) 0.05 x10 3/uL 0.0-0.2 N BLOOD [id number] 10:00:00 Test Item Value Reference Range Interpretation Comments CULTURE (SkymarkerAKER) (test No growth in 5 days code = 1095) HCG, QUANTITATIVE, [id number] 15:37:00 Test Item Value Reference Range Interpretation Comments GONADOTROPIN, CHORIONIC (HCG) 42594 mIU/mL 0-10 H QUANT (BEAKER) (test code = 649) Non- Females: <10 mIU/mL Females: Gestation Age Reference Range(mIU/mL) 0.2-1 Week 5-50 1-2 Weeks 50-500 2-3 Weeks 100-5,000 3-4Weeks 500-10,000 4-5 Weeks 1,000-50,000 5-6 Weeks 10,000-100,000 6-8 Weeks 15,000-200,000 2-3 Months 10,000-100,000COMPREHENSIVE METABOLIC [id number] 15:10:00 Test Item Value Reference Range Interpretation [...] PATIEN TS. CBC W/PLT COUNT & AUTO [id number] 14:53:00 Test Item Value Reference Range Interpretation [...] (test code = 2801) U/S, , FIRST [id number] 07:52:00Reason for exam:-> Reason for exam:->please include [...] 1 day. An embryonic pole is evident. [place]-rump length measures 0.63 cm, correlating with estimated [...] MDReport Verified Date/Time: 05/17/2017 07:52:37 Reading Location: [address] Consult Reading Room PREGNANCY SCREEN, [id number] 05:28:00 Test Item Value Reference Range Interpretation Comments TEST URINE (BEAKER) (test Positive code = 583) MR, BRAIN, WITHOUT [id number] 18:54:00Reason for exam:->Stroke evaluationFINAL REPORT MRI brain [...] MDReport Verified Date/Time: 05/15/2017 18:54:11 Reading Location: [facility] Radiology Reading Room EEG AWAKE AND [id number] 12:08:00Reason for exam:->? nonconvulsive statusDATE OF TEST: 05/15/2017DATE OF REPORT 05/15/2017 ACC: [id number] EE Start time: 1034 Stop time: 1054 ICD-10: R56.9CPT Code: 71796AVGRZQG: 26 y/o woman with epilepsy found down [...] recordings.Marika Smith M.D.Neurophysiology FellowSwathi Harper M.D.Neurophysiology Attending [id number] 04:27:00 Test Item Value Reference Range Interpretation Comments PROCALCITONIN (BEAKER) (test code 0.17 ng/mL <0.05 H = 3036) SEPSIS RISK (ng/mL)Low: 0.05-0.50Intermediate: 0.51-2.00High: >=[id number] 03:15:00 Test Item Value Reference Range Interpretation Comments PHOSPHORUS (BEAKER) (test code = 3.1 mg/dL 2.3-4.7 604) [id number] 03:15:00 Test Item Value Reference Range Interpretation Comments MAGNESIUM (BEAKER) (test code = 1.9 mg/dL 1.6-2.6 627) BASIC METABOLIC [id number] 03:15:00 Test Item Value Reference Range Interpretation [...] code = 380) LACTIC ACID, VENOUS, WHOLE [id number] 03:09:00 Test Item Value Reference Range Interpretation Comments LACTATE BLOOD VENOUS (2) (BEAKER) 0.6 mmol/L 0.5-2.2 (test code = 2872) Effective 10/17/2015: Units/Reference Range ChangeNew: 0.5-2.2 mmol/L Previous: 5-20 mg/dLPROTHROMBIN TIME/[id number] 03:07:00 Test Item Value Reference Range Interpretation [...] = 2801) RAD, CHEST, 1 VIEW, NON [id number] 01:06:00Reason for exam:->possible infectionShould this be performed at the bedside?->YesFINAL REPORT History: Infection. Comparison: None. Findings: A single view of the chest is submitted. The cardiomediastinal contours are unremarkable. There is no focal consolidation, pneumothorax, large pleural effusion or evidence of overt pulmonary edema. There is no acute bony abnormality. Impression: No acute abnormality. Signed: Shabnam Zhu Verified Date/Time: 05/15/2017 01:06:06 Reading Location: [address] Reading Room
--- NOTE | 2020-11-05 17:33 | EDPHYS ---
Physician Documentation [facility] Name: Heather Hope Age: 29 yrs Sex: Female : 1990 Arrival Date: 11/05/2020 Time: 15:42 Bed 27 Private MD: ED Physician Steve Lawrence HPI: 11/05 15:50 This 29 yrs old Female presents to ER via EMS with complaints of seizure. pm1 15:50 The patient presents after having a possible seizure episode, the episode(s) was pm1 witnessed, by EMS personnel. Character of seizure(s): Loss of consciousness: the patient did not lose consciousness, Motor activity: generalized, shaking all over, Incontinence: none, Apnea: the patient did not experience apnea, Circulation: the patient did not experience evidence of pulse disturbance. Seizure onset: today. Associated injury: The patient did not suffer any apparent associated injury. EMS care: none. The patient has experienced similar episodes in the past, multiple times. The patient has not recently seen a physician, has an appointment scheduled, tomorrow with a neurosurgeon. Historical: - Home Meds: 15:47 clobazam 10 mg Oral 2.5 tab 2 times per day [Active]; zb - PMHx: 15:47 Anemia; Depression; Seizures; zb - PSHx: 15:47 None; zb - Immunization history:: Adult Immunizations up to date. - Social history:: Smoking status: unknown. ROS: 15:50 Constitutional: Negative for fever, chills, and weight loss, Cardiovascular: Negative pm1 for chest pain, palpitations, and edema, Respiratory: Negative for shortness of breath, cough, wheezing, and pleuritic chest pain, Abdomen/GI: Negative for abdominal pain, nausea, vomiting, diarrhea, and constipation, Back: Negative for injury and pain, MS/Extremity: Negative for injury and deformity, Skin: Negative for injury, rash, and discoloration. 15:50 Neuro: Positive for seizure activity, Negative for headache, loss of consciousness. Exam: 15:50 Constitutional: This is a well developed, well nourished patient who is awake, alert, pm1 and in no acute distress. Head/Face: Normocephalic, atraumatic. 15:50 Respiratory: Lungs have equal breath sounds bilaterally, clear to auscultation and percussion. No rales, rhonchi or wheezes noted. No increased work of breathing, no retractions or nasal flaring. Abdomen/GI: Soft, non-tender, with normal bowel sounds. No distension or tympany. No guarding or rebound. No evidence of tenderness throughout. Back: No spinal tenderness. No costovertebral tenderness. Full range of motion. Skin: Warm, dry with normal turgor. Normal color with no rashes, no lesions, and no evidence of cellulitis. MS/ Extremity: Pulses equal, no cyanosis. Neurovascular intact. Full, normal range of motion. 15:50 Cardiovascular: Exam negative for acute changes, Rate: normal, Rhythm: regular, Pulses: no pulse deficits are appreciated, Edema: is not appreciated. Vital Signs: 15:45 BP 131 / 94; Pulse 100; Resp 18; Temp 98.8; Pulse Ox 95% on R/A; zb MDM: 15:51 Patient medically screened. pm1 17:29 Data reviewed: vital signs. Data interpreted: Pulse oximetry: on room air is 95 %. pm1 Interpretation: normal. 17:29 Refusal of service: The patient/guardian displays adequate decision making capability pm1 and despite a detailed discussion of alternatives, benefits, risks, and consequences refuses: all lab tests, Patient is at her baseline and does not want any further needle sticks. Patient feels ready to go home. Reports that she has an appointment tomorrow with a neurosurgeon for surgery to correct her seizures. 17:29 Counseling: I had a detailed discussion with the patient and/or guardian regarding: the pm1 historical points, exam findings, and any diagnostic results supporting the discharge/admit diagnosis, the need for outpatient follow up, a neurologist, a neurosurgeon, to return to the emergency department if symptoms worsen or persist or if there are any questions or concerns that arise at home. 11/05 15:50 Order name: ETOH Level; Complete Time: :43 pm1 11/05 15:50 Order name: Salicylate; Complete Time: :43 pm1 Administered Medications: No medications were administered Disposition: 11/06 10:03 Co-signature as Attending Physician, Steve Lawrence MD I agree with the assessment and issac plan of care. Disposition: 11/05/20 17:31 Discharged to Home. Impression: Epilepsy and recurrent seizures. - Condition is Stable. - Discharge Instructions: Seizure, Adult, [id number]. - Medication Reconciliation Form, Thank You Letter, Antibiotic Education, Prescription Opioid Use form. - Follow up: Emergency Department; When: As needed; Reason: Worsening of condition. Follow up: Private Physician; When: 2 - 3 days; Reason: Recheck today's complaints, Continuance of care, Re-evaluation by your physician. - Problem is new. - Symptoms have improved. Signatures: Dispatcher [employer] EDMA Steve Lawrence MD MD cha Marinas, Patrick, SUCTION ROLLER SUCTION ROLLER pm1 Rowena Baxter RN RN zb Corrections: (The following items were deleted from the chart) 11/05 17:47 15:51 Acetaminophen Level ordered. [facility] 17:47 15:51 BASIC METABOLIC PANEL+C.LAB.BRZ ordered. [facility] 17:47 15:51 HEPATIC FUNCTION+C.LAB.BRZ ordered. [facility] 17:47 15:51 PHENYTOIN (DILANTIN)+C.LAB.BRZ ordered. [facility] 17:48 15:51 CBC+H.LAB.BRZ ordered. [facility] 17:48 15:51 PROTIME (+INR)+COAG.LAB.BRZ ordered. [facility] 17:48 15:51 PTT, ACTIVATED+COAG.LAB.BRZ ordered. [facility] 17:51 17:31 11/05/2020 17:31 Discharged to Home. Impression: Epilepsy and recurrent seizures. zb Condition is Stable. Forms are Medication Reconciliation Form, Thank You Letter, Antibiotic Education, Prescription Opioid Use. Follow up: Emergency Department; When: As needed; Reason: Worsening of condition. Follow up: Private Physician; When: 2 - 3 days; Reason: Recheck today's complaints, Continuance of care, Re-evaluation by your physician. Problem is new. Symptoms have improved. pm1 17:51 17:51 11/05/2020 17:31 Discharged to Home. Impression: Epilepsy and recurrent seizures. zb Condition is Stable. Discharge Instructions: Seizure, Adult, [id number]. Forms are Medication Reconciliation Form, Thank You Letter, Antibiotic Education, Prescription Opioid Use. Follow up: Emergency Department; When: As needed; Reason: Worsening of condition. Follow up: Private Physician; When: 2 - 3 days; Reason: Recheck today's complaints, Continuance of care, Re-evaluation by your physician. Problem is new. Symptoms have improved. reema
--- NOTE | 2020-11-05 17:33 | ER ---
Nurse's Notes [facility] Name: Heather Hope Age: 29 yrs Sex: Female : 1990 Arrival Date: 11/05/2020 Time: 15:42 Bed 27 Private MD: Diagnosis: Epilepsy and recurrent seizures Presentation: 11/05 15:45 Chief complaint: EMS states: patient called from home stating that she had a seizure. zb When EMS arrived, patient start having a suspected tonic clonic seizure. Coronavirus screen: At this time, the client does not indicate any symptoms associated with coronavirus-19. Ebola Screen: Patient denies travel to an Ebola-affected area in the 21 days before illness onset. Initial Sepsis Screen: Does the patient meet any 2 criteria? No. Patient's initial sepsis screen is negative. Does the patient have a suspected source of infection? No. Patient's initial sepsis screen is negative. Risk Assessment: Do you want to hurt yourself or someone else? Patient reports no desire to harm self or others. Onset of symptoms was November 05, 2020. 15:45 Acuity: DARLYN 3 zb 15:45 Method Of Arrival: EMS: [facility] zb Triage Assessment: 15:48 General: Appears in no apparent distress. Behavior is drowsy, uncooperative. Pain: zb Unable to use pain scale. patient is not responding at this time to questions. Neuro: Level of Consciousness is listless, Oriented to none Seizure activity none noted at this time. Cardiovascular: Patient's skin is warm and dry. Respiratory: Airway is patent Respiratory effort is even, unlabored, Respiratory pattern is regular, symmetrical, Breath sounds are clear bilaterally. GI: No deficits noted. Derm: Skin is intact, is healthy with good turgor. Musculoskeletal: Range of motion: intact in all extremities. Historical: - Home Meds: 15:47 clobazam 10 mg Oral 2.5 tab 2 times per day [Active]; zb - PMHx: 15:47 Anemia; Depression; Seizures; zb - PSHx: 15:47 None; zb - Immunization history:: Adult Immunizations up to date. - Social history:: Smoking status: unknown. Screenin:45 Abuse screen: Denies threats or abuse. Denies injuries from another. Nutritional zb screening: No deficits noted. Fall Risk Fall in past 12 months (25 points). Secondary diagnosis (15 points) No IV (0 pts). Ambulatory Aid- None/Bed Rest/Nurse Assist (0 pts). Gait- Normal/Bed Rest/Wheelchair (0 pts) Mental Status- Oriented to own ability (0 pts). Total Green Fall Scale indicates Low Risk Score (25-44 pts). Fall prevention measures have been instituted. Side Rails Up X 2 Placed close to Nursing Station Frequent Obs/Assesments occuring. Assessment: 16:00 Reassessment: patient awake refusing IV and treatment. ECP notified. patient states she zb wants to leave. 16:30 Reassessment: Unable to get vital signs at this time. zb 17:50 Reassessment: patient eloped out of room ambulated out. discovered missing at this time.zb Vital Signs: 15:45 BP 131 / 94; Pulse 100; Resp 18; Temp 98.8; Pulse Ox 95% on R/A; zb ED Course: 15:42 Patient arrived in ED. ll1 15:43 Jarvis Greer NP is PHCP. pm1 15:43 Steve Lawrence MD is Attending Physician. pm1 15:45 Rowena Baxter RN is Primary Nurse. zb 15:47 Triage completed. zb 16:20 Missed attempt(s): 22 gauge in right wrist. Bleeding controlled, band aid applied, ca1 catheter tip intact. 17:00 Missed attempt(s): 22 gauge in left wrist. antecubital area. upper arm. mh5 17:27 Patient has correct armband on for positive identification. Bed in low position. Call mh5 light in reach. Side rails up X2. Seizure precautions initiated. Administered Medications: No medications were administered Outcome: 17:31 Discharge ordered by MD. pm1 17:50 Eloped Time discovered patient gone: November 05, 2020 at 17:50 zb 17:51 Patient left the ED. zb Signatures: Jarvis Greer NP SERVICE PROMOTER SALESPERSON pm1 Jovana Bianchi 5 Jannette Romero RN RN ca1 Donald Marcum RN RN 1 Rowena Baxter RN RN zb Corrections: (The following items were deleted from the chart) 11/06 00:38 11/05 15:48 General: Appears in no apparent distress. Behavior is uncooperative, zb zb 11/06 00:11/05 15:48 Pain: Unable to use pain scale. patient is not responding at this time to zb questions zb 11/06 00:11/05 15:48 Neuro: Level of Consciousness is listless, Oriented to none zb zb
== END 2020-11-05 17:51 | disposition home or self-care (01) ==
LOC: ER 15:41
DX: G40.802 Other epilepsy, not intractable, without status epilepticus (principal)
CPT/HCPCS: 80320; 80329; 99283

== ENCOUNTER 2020-11-21 21:20 | Inpatient (IN) | payer OTHER ==
--- OUTSIDE RECORDS SUMMARY | 2020-11-21 21:27 | XMS REPORT | Continuity of Care Document ---
:[address] [facility] t Address [address] [place] [address] Care Team Providers Name Role Phone Asked, Pcp Primary Care Physician Unavailable Rickie TAYLOR, A Attending Clinician Unavailable Leeann Foster MD Attending Clinician Elvia Reyes MD Attending Clinician Chauncey Brumfield APRN Attending Clinician MD LEEANN FOSTER Attending Clinician Unavailable Niki TAYLOR, A Attending Clinician Unavailable Killian Jacobo MD Attending Clinician Gaye MENDOZA Attending Clinician Rafael CRUZ Attending Clinician Unavailable Galina Crzu MD Attending Clinician Sofi Van MD Attending Clinician Arya MENDOZA Attending Clinician MD ARYA Attending Clinician Unavailable Pavan Matos DO Attending Clinician Mayito Daily MD Attending Clinician Vicente Alvarado MD Attending Clinician Pham Watkins MD Attending Clinician Lisa MENDOZA Attending Clinician Leo MENDOZA Attending Clinician Roe MENDOZA Attending Clinician MD ROE Attending Clinician Unavailable MD SOFI VAN Attending Clinician Unavailable Glo Cruz MD Attending Clinician MD GLO CRUZ Attending Clinician Unavailable Darren CRUZ Attending Clinician Unavailable Chandrika Ron MD Attending Clinician Alissa MENDOZA Attending Clinician Ninfa MENDOZA Attending Clinician MD ALISSA Attending Clinician Unavailable MD GAYE Attending Clinician Unavailable LIANA Attending Clinician Unavailable BRANDO RODAS Attending Clinician Unavailable CRISTIAN Admitting Clinician Unavailable MD LEEANN FOSTER Admitting Clinician Unavailable ARYA Admitting Clinician Unavailable MD ARYA Admitting Clinician Unavailable HOWARD Admitting Clinician Unavailable MD ROE Admitting Clinician Unavailable MD SOFI VAN Admitting Clinician Unavailable MD GLO CRUZ Admitting Clinician Unavailable ALISSA Admitting Clinician Unavailable MD ALISSA Admitting Clinician Unavailable GAYE Admitting Clinician Unavailable MD GAYE Admitting Clinician Unavailable Juliano DEJESUS Admitting Clinician Unavailable Payers Payer Name Policy Policy Effective Expiration Source Type Number Date Date CIGNACIGNA OPEN 2019 [place] ACCESS/[id number]/ 2 00:00:00 Anabaptism /2020-PresentHMO [facility] MEDICAID[facility]CARE [id number] 2020 [place] STAR 00:00:00 Anabaptism [id number] 2021- HMO Problems Condition Condition Condition Status Onset Resolution Last Treating Co mments Source Name Details Category Date Date Treatment Clinician Date Seizures Seizures Disease Active [place] [facility] st 00 Abdominal Abdominal Disease Active [facility] pain pain 1-11 [facility] st 00 Epilepsy Epilepsy Disease Active 2019-06 [place] 0 [facility] st 00 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 00:00: st with with 00 generaliza generaliza tion and tion and with with intractabl intractabl e epilepsy e epilepsy Seizure Seizure Disease Active [place] 11-11 [facility] st 00 Hypokalemi Hypokalemi Disease Active 2016-[address] [facility] Acute Acute Disease Active 2016-[address] [facility] [address] encephalop encephalop 1-30 [facility] Seizure Seizure Disease Active 2016-[address] disorder disorder [facility] Leukocytos [...] Problems [place] Paternal Multiple sclerosis Luz n Anabaptism grandmother Family member Diabetes Nunez Met hodist Family member Hypertension Nunez M ethodist Social History Social Habit Start Date Stop Date Quantity Comments Source Exposure to Not sure [place] Metho dist SARS-CoV-2 (event) Tobacco use and 2020-11-08 2020-11-08 Never used Enrique rodriguezodist exposure 00:00:00 00:00:00 Alcohol intake 2020-11-08 2020-11-08 Lifetime Enrique Parks thodist 00:00:00 00:00:00 non-drinker (finding) Sex [birth year] Enrique rodriguezodi 00:00:00 00:00:00 Smoking Status Start Date Stop Date Source Never smoker [place] [facility] t Medications Ordered Filled Start Stop Current Ordering Indication Dosage Frequency Signature Comments Components Source Medication Medication Date Date Medication? Clinician (SIG) Name Name doxycycline 2020- No 100mg Q.5D Take 1 Ho capri (VIBRAMYCIN 11-09 capsule Meth maude ) 100 MG 00:00: 23:59 ([address] capsule 00 :00 total) by mouth 2 (two) times a day for 7 days. acetaminoph 2020- No acute pain 1{tbl} Q6H Take 1-2 [place] en-codeine 11-09 tablets by [facility] (TYLENOL 00:00: 23:[address] WITH 00 :00 every 6 CODEINE #3) (six) 300-30 mg hours as per tablet needed for moderate pain for up to 7 days .acute pain. phenytoin 2021- Yes 300mg QD Take 3 [place] (Dilantin 10-04- capsules Metho di Kapseal) 00:00: 23:59 (300 [...] by mouth daily for 60 days. phenytoin No 100mg Q.5D Take 100 [place] [...] daily for 180 days. ergocalcife 2019-06- No [id number] Q7D Take 1 [place] rol 0-31 [...] (two) times a day. levETIRAcet 2020- No 2250mg Q.5D Take 3 [place] (KEPPRA) 6-02 07-02 tablets Meth maude 750 MG 00:00: 23:59 (2,[address] tablet 00 :00 total) by mouth 2 (two) times a day for 30 days. B 2019- 2020- No 1{tbl} QD Take 1 Nunez complex-vit 6- 07-02 tablet by Sc marques carter 00:00: 23:[address] C-folic [...] ts Source Name Name Tdap 2020-05-02 Completed [place] 00:00:00 Anabaptism Vital Signs Vital Name Observation Time Observation Value Comments Source Systolic blood 2020-11-09 11:14:22 125 mm[Hg] Luz n Anabaptism pressure Diastolic blood 2020-11-09 11:14:22 81 mm[Hg] [place] on Anabaptism pressure Heart rate 2020-11-09 11:14:22 100 /min Enrique Piedra Body temperature 2020-11-09 11:14:22 36.89 Melody Sonja ton Anabaptism Respiratory rate 2020-11-09 11:14:22 18 /min Sonja Piedra Oxygen saturation in 2020-11-09 11:14:22 96 /min Enrique Piedra Arterial blood by Pulse oximetry Body height 2020-11-06 07:30:00 160 cm Enrique Piedra Body weight 2020-11-06 07:30:00 70.761 kg Enrique Piedra BMI 2020-11-06 07:30:00 27.63 kg/m2 Enrique Piedra Procedures Procedure Date / Time Performing Clinician Source Performed BASIC METABOLIC PANEL 2020-11-09 04:21:00 Cristiane Perez HC COMPLETE BLD COUNT 2020-11-09 04:21:00 Cristiane Perez W/AUTO DIFF IONIZED CALCIUM 2020-11-09 04:21:00 Cristiane Perez odadriano MAGNESIUM LEVEL 2020-11-09 04:21:00 Cristiane Perez PHOSPHORUS LEVEL 2020-11-09 04:21:00 Cristiane Perez ESTIMATED GFR 2020-11-09 04:21:00 Cristiane Perez odist POC GLUCOSE 2020-11-08 20:00:00 CristianMarilee ethodist POC GLUCOSE 2020-11-08 15:40:00 CristianMarilee [facility] ethodist POC GLUCOSE 2020-11-08 07:52:00 CristianMarilee [facility] ethodist POC GLUCOSE 2020-11-08 04:25:00 CristianMarilee [place] Cecelia ethodist HC COMPLETE BLD COUNT 2020-11-08 00:28:00 Marissa Suggs W/AUTO DIFF Nadeem BASIC METABOLIC PANEL 2020-11-08 00:28:00 Marissa Suggs Nadeem PHOSPHORUS LEVEL 2020-11-08 00:28:00 Marissa Suggs Nadeem MAGNESIUM LEVEL 2020-11-08 00:28:00 Marissa Suggs Nadeem IONIZED CALCIUM 2020-11-08 00:28:00 Marissa Suggs Nadeem ESTIMATED GFR 2020-11-08 00:28:00 Marissa Suggs Nadeem POC GLUCOSE 2020-11-08 00:00:00 CristianMarilee ethodist POC GLUCOSE 2020 20:08:00 CristianMarilee ponce ethodist POC GLUCOSE 2020 15:34:00 CristianMarilee ponce ethodist POC GLUCOSE 2020 11:44:00 CristianMarilee ponce ethodist POC GLUCOSE 2020 07:51:[address] HEAD WO CONTRAST 2020 03:52:23 Johnathan Vinson Anabaptism [place] POC GLUCOSE 2020 03:31:00 CristianMarilee ethodist HC COMPLETE BLD COUNT 2020 00:17:00 Kendall Daily Anabaptism W/AUTO DIFF MAGNESIUM LEVEL 2020 00:17:00 Killian Kendall Enrique Meth odist PHOSPHORUS LEVEL 2020 00:17:00 Killian Alfreditovriginia Warren hodist IONIZED CALCIUM 2020 00:17:00 Killian Alfreditovirginia Nunez Meth odist BASIC METABOLIC PANEL 2020 00:17:00 Kendall Daily Anabaptism ESTIMATED GFR 2020 00:17:00 Kendall Daily Enrique Meth odist POC GLUCOSE 2020-11-06 23:40:00 CristianMarilee ponce ethodist POC GLUCOSE 2020-11-06 19:27:00 Marilee Foster ethodist POC GLUCOSE 2020-11-06 17:49:[address] HEAD WO CONTRAST 2020-11-06 17:46:00 Odell Williamson Anabaptism BASIC METABOLIC PANEL 2020-11-06 16:36:00 Odell Williamson HC COMPLETE BLD COUNT 2020-11-06 16:36:00 Odell Williamson W/AUTO DIFF PARTIAL THROMBOPLASTIN 2020-11-06 16:36:00 Odell Williamson TIME (PTT) PROTHROMBIN TIME WITH INR 2020-11-06 16:36:00 Odell Williamson ESTIMATED GFR 2020-11-06 16:36:00 Cristian, Marilee Rai ethodist CT HEAD WO CONTRAST 2020-11-06 14:56:54 Odell Williamson on Anabaptism SODIUM LEVEL, SYRINGE 2020-11-06 13:16:00 Cristian, Marilee aguila Anabaptism ARTERIAL BLOOD GAS 2020-11-06 13:16:00 Cristian, Marilee pinzon Anabaptism POTASSIUM, SYRINGE 2020-11-06 13:16:00 Cristian, Marilee pinzon Anabaptism IONIZED CALCIUM, ARTERIAL 2020-11-06 13:16:00 Cristian, Marilee Nunez Anabaptism HEMOGLOBIN, SYRINGE 2020-11-06 13:16:00 Cristian, Marilee Ladd on Anabaptism GLUCOSE LEVEL, SYRINGE 2020-11-06 13:16:00 Cristian, Marilee farooq Anabaptism LACTIC ACID, SYRINGE 2020-11-06 13:16:00 Cristian, Marilee lemus Anabaptism MAGNESIUM LEVEL 2020-11-06 13:16:00 Cristian, Marilee Rai ethodist ARTERIAL BLOOD GAS, 2020-11-06 12:02:00 Cristian, Marilee Ladd on Anabaptism CORRECTED SODIUM LEVEL, SYRINGE 2020-11-06 12:02:00 Cristian, Marilee aguila Anabaptism POTASSIUM, SYRINGE 2020-11-06 12:02:00 Cristian, Marilee pinzon Anabaptism HEMOGLOBIN, SYRINGE 2020-11-06 12:02:00 Cristian, Marilee Ladd on Anabaptism GLUCOSE LEVEL, SYRINGE 2020-11-06 12:02:00 Cristian, Marilee farooq Anabaptism IONIZED CALCIUM, ARTERIAL 2020-11-06 12:02:00 Cristian, Marilee Nunez Anabaptism MAGNESIUM LEVEL 2020-11-06 12:02:00 Cristian, Marilee Nunez M ethodist LACTIC ACID LEVEL 2020-11-06 12:02:00 Cristian, Marilee Nunez Anabaptism ARTERIAL LINE 2020-11-06 10:36:20 Lizzeth Pierson Met hodist Prer[facility] CT ANGIOGRAM HEAD W WO 2020-11-06 10:16:00 Mahesh Zamora Anabaptism CONTRAST CA AN ELECTIVE 2020-11-06 08:16:00 Lizzeth Pierson Met hodist ENDOTRACHEAL AIRWAY Prerna IMPLANTATION, DEEP BRAIN 2020-11-06 07:52:00 Marilee Foster STIMULATOR, STAGE ONE BASIC METABOLIC PANEL 2020-11-02 16:09:00 Marilee Foster CBC HEMOGRAM 2020-11-02 16:09:00 Marilee Foster ethodist PARTIAL THROMBOPLASTIN 2020-11-02 16:09:00 Marilee Foster TIME (PTT) PROTHROMBIN TIME WITH INR 2020-11-02 16:09:00 Marilee Foster HEPATIC FUNCTION PANEL 2020-11-02 16:09:00 Arlene Brumfield HCG QUALITATIVE, SERUM 2020-11-02 16:09:00 Arlene Brumfield SCREEN ESTIMATED GFR 2020-11-02 16:09:00 Marilee Foster HEMOGLOBIN A1C 2020-11-02 16:09:00 Arlene Brumfield ECG PRE/POST OP 2020-11-02 15:48:01 Marilee Foster COVID-19 QUALITATIVE PCR 2020-11-02 15:37:00 Marilee Foster CBC WITH PLATELET AND 2020-10-04 12:36:00 Michelet Godinez DIFFERENTIAL TROPONIN 2020-10-04 12:36:00 Michelet Godinez B NATRIURETIC PEPTIDE 2020-10-04 12:36:00 Michelet Godinez PHENYTOIN LEVEL 2020-10-04 12:36:00 Michelet Godinez HC COMPLETE BLD COUNT 2020-10-04 12:36:00 Poppy Jacobo W/AUTO DIFF ECG 12-LEAD 2020-10-04 11:22:39 Michelet Godinez COMPREHENSIVE METABOLIC 2020-10-04 11:20:00 Michelet Godinez PANEL ESTIMATED GFR 2020-10-04 11:20:00 Michelet Godinez HC COMPLETE BLD COUNT 2020-09-13 04:31:00 Arya Rosalie pinzon Anabaptism W/AUTO DIFF COMPREHENSIVE METABOLIC 2020-09-13 04:31:00 Arya Rosalie lemus Anabaptism PANEL ESTIMATED GFR 2020-09-13 04:31:00 Rosalie Bailey Meth odist HC COMPLETE BLD COUNT 2020-09-12 05:40:00 Dave Baileywalker Escobar n Anabaptism W/AUTO DIFF COMPREHENSIVE METABOLIC 2020-09-12 04:00:00 Arya Rosalie lemus Anabaptism PANEL ESTIMATED GFR 2020-09-12 04:00:00 Rosalie Bailey [...] COMPLETE BLD COUNT 2020-06-29 05:00:00 Mila Fitzgerald Anabaptism W/AUTO DIFF FREE PHENYTOIN LEVEL 2020-06-29 05:00:00 Mila Fitzgerald BASIC METABOLIC PANEL 2020-06-29 04:00:00 Mila Fitzgerald Anabaptism MAGNESIUM LEVEL 2020-06-29 04:00:00 Mila Fitzgerald Meth odist PHOSPHORUS LEVEL 2020-06-29 04:00:00 Mila Fitzgerald Met hodist PHENYTOIN LEVEL 2020-06-29 04:00:00 Mila Fitzgerald Meth odist ESTIMATED GFR 2020-06-29 04:00:00 Mila Fitzgerald Meth odist HC COMPLETE BLD COUNT 2020-06-28 05:00:00 Mila Fitzgerald Anabaptism W/AUTO DIFF BASIC METABOLIC PANEL 2020-06-28 04:00:00 Mila Fitzgerald Anabaptism MAGNESIUM LEVEL 2020-06-28 04:00:00 Mila Fitzgerald Meth odist PHOSPHORUS LEVEL 2020-06-28 04:00:00 Mila Fitzgerald Met hodist PHENYTOIN LEVEL 2020-06-28 04:00:00 Mila Fitzgerald Meth odist FREE PHENYTOIN LEVEL 2020-06-28 04:00:00 Mila Fitzgerald ESTIMATED GFR 2020-06-28 04:00:00 Mila Fitzgerald odist EEG AWAKE/ASLEEP LESS THAN 2020-06-27 17:27:27 [place] 41 MIN BASIC METABOLIC PANEL 2020-06-27 05:00:00 Mila Fitzgerald Anabaptism HC COMPLETE BLD COUNT 2020-06-27 05:00:00 Mila Fitzgerald Anabaptism W/AUTO DIFF MAGNESIUM LEVEL 2020-06-27 05:00:00 Mila Fitzgerald Meth odist PHOSPHORUS LEVEL 2020-06-27 05:00:00 Mila Fitzgerald Met hodist PHENYTOIN LEVEL 2020-06-27 05:00:00 Mila Fitzgerald Meth odist FREE PHENYTOIN LEVEL 2020-06-27 05:00:00 Mila Fitzgerald ESTIMATED GFR 2020-06-27 05:00:00 Mila Fitzgerald Meth odist SODIUM LEVEL, URINE, 2020-06-26 21:12:00 Gonzalo Watkins RANDOM Pham OSMOLALITY, URINE 2020-06-26 21:12:00 Roland Gonzalo Nunez Me thodist Pham OSMOLALITY, SERUM 2020-06-26 19:10:00 Roland Gonzalo Nunez Me thodist Pham HCG QUALITATIVE, URINE 2020-06-26 18:50:00 Gonzalo Watkins Anabaptism SCREEN Pham PROTHROMBIN TIME WITH INR 2020-06-26 16:30:00 Mila Fitzgerald PARTIAL THROMBOPLASTIN 2020-06-26 16:30:00 Mila Fitzgerald Anabaptism TIME (PTT) HC COMPLETE BLD COUNT 2020-06-26 16:30:00 Mila Fitzgerald W/AUTO DIFF XR ABDOMEN ACUTE INC CHEST 2020-06-26 13:54:27 Gonzalo Watkins 1V Pham HC COMPLETE BLD COUNT 2020-06-26 12:26:00 Mila Fitzgerald W/AUTO DIFF BASIC METABOLIC PANEL 2020-06-26 11:25:00 Mila Fitzgerald ESTIMATED GFR 2020-06-26 11:25:00 Mila Fitzgerald odadriano VENIPUNC NEED PHYS 2020-06-26 10:40:22 Juanita Matthew ethodist SKILL,DX OR RX CT HEAD WO CONTRAST 2020-06-25 23:24:53 Gonzalo Watkins Pham HC COMPLETE BLD COUNT 2020-06-25 21:00:00 Gonzalo Watkins W/AUTO DIFF Pham PROTHROMBIN TIME WITH INR 2020-06-25 21:00:00 Gonzalo Watkinsist Pham PARTIAL THROMBOPLASTIN 2020-06-25 21:00:00 Gonzalo Watkins on Anabaptism TIME (PTT) Pham B NATRIURETIC PEPTIDE 2020-06-25 21:00:00 Gonzalo Watkins Pham SMEAR REVIEW 2020-06-25 21:00:00 RolandGonzalo Enrique Meth odist Pham COMPREHENSIVE METABOLIC 2020-06-25 20:12:00 Roland Gonzalo lemus Anabaptism PANEL Pham PHENYTOIN LEVEL 2020-06-25 20:12:00 Watkins, Makenzieprakash Enrique Light odist Pham HC COMPLETE BLD COUNT 2020-06-25 11:53:00 Mina Gonzáles n Anabaptism W/AUTO DIFF COMPREHENSIVE METABOLIC 2020-06-25 11:53:00 Mina Gonzáles Anabaptism PANEL PREALBUMIN LEVEL 2020-06-25 11:53:00 Mina Gonzáles Met hodist MAGNESIUM LEVEL 2020-06-25 11:53:00 Mina Gonzáles odist PHOSPHORUS LEVEL 2020-06-25 11:53:00 Mina Gonzáles Met hodist FREE PHENYTOIN LEVEL 2020-06-25 11:53:00 Mina Gonzáles ESTIMATED GFR 2020-06-25 11:53:00 Mina Gonzáles ACHR ABS, TITIN AB, STM 2020-06-25 11:53:00 Mina Gonzáles ABS RFLX PANEL STRIATED MUSCLE ABS, IGG 2020-06-25 11:53:00 Mina Gonzáles TITER COVID-19 QUALITATIVE PCR 2020-06-25 10:39:00 Mina Gonzáles BASIC METABOLIC PANEL 2020-06-22 14:58:00 Marilee Foster PARTIAL THROMBOPLASTIN 2020-06-22 14:58:00 Marilee Foster TIME (PTT) PROTHROMBIN TIME WITH INR 2020-06-22 14:58:00 Marilee Foster CBC HEMOGRAM 2020-06-22 14:58:00 Marilee Foster HEMOGLOBIN A1C 2020-06-22 14:58:00 Arlene Brumfield ethodist ESTIMATED GFR 2020-06-22 14:58:[address] ABDOMEN PELVIS W 2020-06-19 01:41:06 Yovany Van n Anabaptism CONTRAST COVID-19 QUALITATIVE PCR 2020-06-19 00:31:00 Yovany Van Anabaptism HC COMPLETE BLD COUNT 2020-06-19 00:31:00 Rehan Yovany lemus Anabaptism W/AUTO DIFF COMPREHENSIVE METABOLIC 2020-06-19 00:31:00 Yovany Van Anabaptism PANEL LIPASE LEVEL 2020-06-19 00:31:00 Elmeryadira Yovany Sofialberta Nunez Me thodist ESTIMATED GFR 2020-06-19 00:31:00 Alec Vanloren Sofialberta Nnuez Me thodist URINE CULTURE 2020-06-18 23:56:00 Rehan Yovany Sofialberta Nunez Me thodist URINALYSIS SCREEN AND 2020-06-18 23:56:00 Yovany Van Anabaptism MICROSCOPY, WITH REFLEX TO CULTURE HCG QUALITATIVE, URINE 2020-06-18 23:56:00 Yovany Van Anabaptism SCREEN COVID-19 QUALITATIVE PCR 2020-05-02 16:10:00 aDniel Cruz Anabaptism URINE CULTURE 2020-05-02 15:51:[address] HEAD WO CONTRAST 2020-05-02 15:47:02 Daniel Cruz on Anabaptism HC COMPLETE BLD COUNT 2020-05-02 15:30:00 Daniel Cruz Anabaptism W/AUTO DIFF HCG QUALITATIVE, SERUM 2020-05-02 15:30:00 Daniel Cruz Anabaptism SCREEN BASIC METABOLIC PANEL 2020-05-02 15:30:00 Daniel Cruz Anabaptism ESTIMATED GFR 2020-05-02 15:30:00 Daniel Cruz M ethodist SMEAR REVIEW 2020-05-02 15:30:00 Daniel Cruz ethodist URINALYSIS SCREEN AND 2020-05-02 15:28:00 Daniel Cruz Anabaptism MICROSCOPY, WITH REFLEX TO CULTURE POC GLUCOSE 2020-04-06 17:27:00 Ninfa Steffaniedelmi Nunez Meth odist 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) 2020-04-06 16:50:00 Ninfa Johnson Aharben DOUBLE-STRANDED DNA 2020-04-06 16:50:00 Ninfa Johnson (DSDNA) ANTIBODIES, Ninfa CRITHIDIA CENTROMERE ANTIBODY 2020-04-06 16:50:00 Ninfa Johnson Aharben POTASSIUM LEVEL 2020-04-05 17:40:00 Reza Avelar odadriano HOMOCYSTINE, PLASMA 2020-04-05 17:40:00 Reza Avelar EEG AWAKE/DROWSY LESS THAN 2020-04-05 11:03:26 Reza Avelar 41 MIN HC COMPLETE BLD COUNT 2020-04-05 04:00:00 Caesar Maxwell Anabaptism W/AUTO DIFF VITAMIN B12 LEVEL 2020-04-05 04:00:00 Reza Avelar thodist C-REACTIVE PROTEIN 2020-04-05 04:00:00 Reza Avelar ethodist HOMOCYSTINE, PLASMA 2020-04-05 04:00:00 Reza Avelar RHEUMATOID FACTOR 2020-04-05 04:00:00 Reza Avelar thodist THYROID STIMULATING 2020-04-05 04:00:00 Reza Avelar HORMONE T4, FREE 2020-04-05 04:00:00 Reza Avelar odist T3 2020-04-05 04:00:00 Reza Avelar odadriano SYPHILIS TREPONEMA SCREEN 2020-04-05 04:00:00 Reza Avelar WITH RPR CONFIRMATION (REVERSE ALGORITHM) HIV AG/AB COMBINATION 2020-04-05 04:00:00 Reza Avelar VITAMIN D 25 HYDROXY LEVEL 2020-04-05 04:00:00 Reza Avelar BASIC METABOLIC PANEL 2020-04-05 04:00:00 Caesar Maxwell on Anabaptism FOLATE LEVEL 2020-04-05 04:00:00 Caesar Maxwell hodist MAGNESIUM LEVEL 2020-04-05 04:00:00 Caesar Maxwell Met aleah ESTIMATED GFR 2020-04-05 04:00:00 Caesar Maxwell Met avaist COVID-19 QUALITATIVE PCR 2020-04-04 22:52:[address]aptism [address] HEAD WO CONTRAST 2020-04-04 21:17:59 Asaf Max Escobar n Anabaptism CBC HEMOGRAM 2020-04-04 21:00:00 Max Ron Me thodist SEDIMENTATION RATE 2020-04-04 21:00:00 Max Ron Anabaptism URINE CULTURE 2020-04-04 20:52:00 Max Ron Me thodist KEPPRA (LEVETIRACETAM) 2020-04-04 20:15:00 Max Ron Anabaptism LEVEL URINALYSIS SCREEN AND 2020-04-04 19:19:00 Max Ron Anabaptism MICROSCOPY, WITH REFLEX TO CULTURE URINE DRUGS OF ABUSE 2020-04-04 19:19:00 Max Ron on Anabaptism SCREEN PROLACTIN LEVEL 2020-04-04 19:07:00 Max Ron Me thodist ECG 12-LEAD 2020-04-04 19:02:38 Max Ron Me thodist CRITICAL CARE 2020-04-04 18:48:10 Lila Byers Meth odist COMPREHENSIVE METABOLIC 2020-04-04 18:33:00 Max Ron Anabaptism PANEL LACTIC ACID LEVEL, SEPSIS 2020-04-04 18:33:00 Max Ron Anabaptism - NOW AND REPEAT 2X EVERY 3 HOURS MAGNESIUM LEVEL 2020-04-04 18:33:00 Max Ron Me thodist PHOSPHORUS LEVEL 2020-04-04 18:33:00 Max Ron M ethodist ESTIMATED GFR 2020-04-04 18:33:00 Max Ron Me thodist PET BRAIN METABOLIC EVAL 2020-03-30 13:51:58 Richard Huizar Anabaptism POC GLUCOSE 2020-03-30 12:29:00 Richard Huizar Meth odist MRI BRAIN W WO CONTRAST 2020-03-27 13:50:00 Richard Huizar Sonja Piedra MONITORED VIDEO-EEG 60 HRS 2020-03-15 12:14:01 Richard Huizar Anabaptism 1 MIN-74 HRS MONITORED W VIDEO DAILY 2020-03-15 00:12:21 Richard Huizar Sonja Cruzist MONITORED W VIDEO DAILY 2020-03-14 00:24:17 Richard Huizar Sonja lemus Anabaptism EEG SETUP 2020-03-13 00:17:20 Richard Huizar Nadege odist HC COMPLETE BLD COUNT 2020-03-12 14:18:00 Ulises Choudhary W/AUTO DIFF COMPREHENSIVE METABOLIC 2020-03-12 14:18:00 Ulises Choudhary PANEL ESTIMATED GFR 2020-03-12 14:18:00 Richard Huizar Nadege taveras MAGNESIUM LEVEL 2020-03-12 14:18:00 Richard Huizar Nadege taveras CT HEAD WO CONTRAST 2020-03-12 13:25:51 Ulises Choudhary COVID-19 QUALITATIVE PCR 2020-03-12 11:53:00 Ulises Choudhary Plan of Care Planned Activity Planned Date Details Comments Source Future Scheduled 2021-01-13 INFLUENZA VACCINE Luz Piedra Test 00:00:00 [code = INFLUENZA VACCINE] Future Scheduled 2010 Screening for Enrique Parks thodist Test 00:00:00 malignant neoplasm of cervix (procedure) [code = 976751484] Future Scheduled 2007-11-08 Hepatitis C Enrique hodist Test 00:00:00 screening (procedure) [code = 007919649] Future Scheduled 2001 COVID-19 VACCINE (1) Chandler Piedra Test 00:00:00 [code = COVID-19 VACCINE (1)] Encounters Start End Encounter Admission Attending Care Care Encounter Source Date/Time Date/Time Type Type Clinicians Facility Department ID 2020-11-15 2020-11-15 Transition ELVIA Damian [id number] 00:00:00 00:00:00 of Care Fanny BRASWELL [id number] [facility] [id number] 2020-11-06 2020-11-09 Inpatient MARILEE FOSTER [facility] [id number] [place] 00:00:00 00:00:[address] 2020-11-02 2020-11-02 Outpatient CRISTIANMARILEE [facility] [id number] [place] 00:00:00 00:00:[address] 2020-10-23 2020-10-23 Transition ELVIA Damian [id number] 00:00:00 00:00:00 of Care Fanny BRASWELL [id number] [facility] [id number] 2020-10-04 2020-10-04 Outpatient RICHARD HUIZAR [facility] [id number] [place] 00:00:00 00:00:00 548 Method i 2020-10-04 2020-10-04 Emergency MOJGAN, [facility] [id number] [place] 00:00:00 00:00:00 POPPY 400 Method i 2020-09-26 2020-09-26 Outpatient MARILEE FOSTER [facility] [id number] [place] 00:00:00 00:00:[address] 2020-09-19 2020-09-19 Transition Rickie ELVIA [id number] 00:00:00 00:00:00 of Care Fanny BRASWELL [id number] [facility] [id number] 2020-09-10 2020-09-13 Inpatient ARYA, [facility] [id number] [place] 00:00:00 00:00:00 ROSALIE [address] 2020-09-04 2020-09-04 Patient SENDY Matos [id number] 00:00:00 00:00:00 Outreach Papo KIM [id number] [facility] [id number] DAVE [id number] 2020-07-26 2020-07-26 [facility] Darvin Daily [id number] 09:42:44 23:59:00 Encounter Keiko [id number] [facility] [id number] 2020-06-25 2020-06-29 Inpatient LEO, [facility] [id number] [place] 00:00:00 00:00:00 MILA [address] [facility] [address] [facility] 2020-06-25 2020-06-25 Outpatient ROE, [facility] [id number] [place] 00:00:00 00:00:00 RAY [address] 2020-06-25 2020-06-25 Outpatient ROE, [facility] [id number] [place] 00:00:00 00:00:00 RAY [address] [facility] [address] [facility] 2020-06-22 2020-06-22 Outpatient MARILEE FOSTER [facility] [id number] [place] 00:00:00 00:00:[address] [facility] [address] [facility] 2020-06-18 2020-06-19 Emergency REHAN, [facility] 064 [id number] [place] 00:00:00 00:00:00 BEAU [address] [facility] 2020-05-15 2020-05-15 Outpatient MARILEE FOSTER [facility] [id number] [place] 00:00:00 00:00:[address] [facility] 2020-05-02 2020-05-02 Emergency ANTHONY, [facility] 064 [id number] [place] 00:00:00 00:00:00 DANIEL [address] [facility] 2020-04-26 2020-04-26 Outpatient HUIZAR, RICHARD [facility] 073 [id number] [place] 00:00:00 00:00:[address] 2020-04-04 2020-04-07 Inpatient AHMED, [facility] 064 [id number] [place] 00:00:00 00:00:00 YAHYA [address] 2020-03-30 2020-03-30 Outpatient HUIZAR, RICHARD [facility] [id number] [place] 00:00:00 00:00:[address] [facility] 2020-03-27 2020-03-27 Outpatient HUIZAR, RICHARD [facility] [id number] [place] 00:00:00 00:00:[address] 2020-03-12 2020-03-15 Inpatient HUIZAR, RICHARD [facility] 016 [id number] [place] 00:00:00 00:00:[address] [facility] [address] [facility] 2020-02-16 2020-02-16 Outpatient RICHARD [facility] [id number] [place] 00:00:00 00:00:[address] 2019-11-12 2019-11-15 Inpatient [facility] [id number] [place] 00:00:00 00:00:00 REID [id number] Results Test Description Test Time Test Comments Results Result Comments Source POC glucose 2020-11-08 20:01:28 Test Item Value Reference Range Interpretation Comme nts POC glucose (test code = 169 mg/dL 65-99 H Ope rator Name: Amy Dougherty [id number]) ID: [id number] hartable: [facility] 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 Both soft tissue and bone reconstruction algorithms were performed. CT scans are performed using radiati on dose reduction techniques (iterative reconstruction and/or automated exposure control). Technicalfactors are evaluated and adjusted to ensure appropriate moderation of exposure. Automated dose management technology is applied to adjust radiation exposure while achieving a diagnostic quality image.COMPARISON: 11/06/2020.FINDINGS:It is important to note that imaging is moderately degraded secondaryto motion related artifact.Taking this into consideration, there is redemonstration of bilateral supratentorial approach deep brain stimulators, not significantly changed in positioning from most recent prior examination. Associated beam hardening artifact is present.There is a mild amount of crescentic intraparenchymal hemorrhage right lateral of the right subthalamic probe, not significantly changed from the prior examination.Subtle left anterior parafalcine hemorrhage is again seen.Subtle left frontal subdural pneumocephalus again seen.The edmondson-white matter differentiation is otherwise preservedand without evidence of acute territorial infarction. No obstructive hydrocephalus.Orbits are unremarkable. Minimal/mild secretions and mucosal thickening seen dependently within the left maxillary sinus. Remaining sinuses are clear. Mastoid air cells are normally pneumatized. Osseous structures are intact.IMPRESSION:It is important to note that imaging is moderately degraded secondary to motion related artifact.Taking this into consideration, findings are not significantly changed as detailed above.1M2RAD_PS01[facility] Arterial blood [id number] 13:26:00 Test Item Value Reference Range Interpretation Comments pH, arterial (test code 7.44 7.35-7.45 = 2744-1) pCO2, arterial (test 35 See_Comment [Autom ated code = 2019-8) message] The system which generated this result transmitted reference range : 35 - 45 mmHg. The reference range was not used to interpret this result as normal/abnormal . pO2, arterial (test 208 See_Comment H [Automa vandana code = 2703-7) message] The system which generated this result transmitted reference range : 80 - 90 mmHg. The reference range was not used to interpret this result as normal/abnormal . Bicarbonate, arterial 23.7 mmol/L 21.0-28.0 (test code = 1960-4) Base excess, arterial 0 See_Comment [Auto mated (test code = 1925-7) message ] The system which generated this result transmitted reference range : -2 - 2 mEq/L. The reference range was not used to interpret this result as normal/abnormal . O2 saturation, arterial 100 % 95-100 (test code = 2708-6) Lab Interpretation Abnormal (test code = 77249-2) [place] MethodistGlucose level, nmerhpa6449-17-41 13:26:00 Test Item Value Reference Range Interpretation Comments Glucose, syringe (test code = 109 mg/dL 65-99 H 2345-7) Lab Interpretation (test code = Abnormal 35051-2) [place]z MethodistHemoglobin, mnscmhq5591-55-57 13:26:00 Test Item Value Reference Range Interpretation Comments Hemoglobin, syringe (test code = 9.5 g/dL 12.0-16.0 L 718-7) Lab Interpretation (test code = Abnormal 70023-9) N[place]z MethodistIonized calcium, iotocqmz8604-74-99 13:26:00 Test Item Value Reference Range Interpretation Comments Ionized calcium, arterial (test 0.98 mmol/L 1.11-1.32 L code = 06126-3) Lab Interpretation (test code = Abnormal 11611-9) Nunez MethodistLactic acid, psatxjw8491-44-92 13:26:00 Test Item Value Reference Range Interpretation Comments Lactic acid, syringe (test code = 0.8 mmol/L 0.5-2.2 83694-6) [place]z MethodistPotassium, qauzutu1766-99-24 13:26:00 Test Item Value Reference Range Interpretation Comments Potassium, syringe (test 3.3 See_Comment L [A utomated message] code = 2007) The system [facility] generated this result transmitted ref erence range: 3.5 - 5. 0 mEq/L. The refe rence range was not u sed to interpret this result as normal/abnor mal. Lab Interpretation (test Abnormal code = 01246-6) Nunez MethodistSodium level, ctexdsw6497-50-03 13:26:00 Test Item Value Reference Range Interpretation Comments Sodium, syringe (test 138 See_Comment [Auto mated message] The code = 2947-0) system which generated this result tra nsmitted reference range : 135 - 148 mEq/L. The refe rence range was not used to interpret this result as normal/abnormal . [place] MethodistArterial blood gas, adhuydyex8430-92-30 12:18:42 Test Item Value Reference Range Interpretation Comments pH, arterial (test code 7.47 7.35-7.45 H = 2744-1) pCO2, arterial (test 29 See_Comment L [Autom ated message] code = 2019-8) The system [facility] generated this result transmitted ref erence range: 35 - 45 mmHg. The reference r greer was not used to interpret this result as normal/abnor mal. pO2, arterial (test code 169 See_Comment H [A utomated message] = 2703-7) The system [facility] generated this result transmitted ref erence range: 80 - 90 mmHg. The reference r greer was not used to interpret this result as normal/abnor mal. Temperature, Celsius 36.5 Degrees C (test code = 8310-5) O2 saturation, arterial 99 % 95-100 (test code = 2708-6) pH, arterial corrected 7.48 (test code = 55502-2) pCO2, arterial corrected 29 mmHg (test code = 37986-1) pO2, arterial corrected 167 mmHg (test code = 06444-2) Base excess, arterial -2 See_Comment [Auto mated message] (test code = 1925-7) The s tem which generated this result transmitted ref erence range: -2 - 2 m Eq/L. The reference r greer was not used to interpret this result as normal/abnor mal. Lab Interpretation (test Abnormal code = 25000-6) [place] MethodistArterial xxrz2753-92-30 10:36:20GeorLizzeth parker, IT SENIOR ANALYST 11/06/2020 10:36 AMArterial line Patient Location: ORStart Time:11/06/2020 9:55 AMEnd Time: 11/06/2020 10:02 AM Performed by: anesthesiologistAnesthesiologist: Ramos Reyes MDAuthorized by: Ramos Reyes MD Pre-procedure: patient identified, IV checked, site and side verified, risks and benefits discussed, procedure verified, surgical consent complete, patient position confirmed, monitors and equipment checked, pre-op evaluation complete and timeout performed prior to procedure MSBT: antiseptic used, all elements of maximal sterile barrier technique followed, hand hygiene performed, cap/gown used by other personnel and solutions labeled Indications: Indications: multiple ABGs and hemodynamic monitoring Anesthesia: Anesthesia: GeneralProcedure Details: Arterial Line placement: Placed post induction Line placement site: RadialLine placement side: Left Arterial line gauge: 20 GNumber of attempts: 1Ultrasound guidance used: No Post-procedure: Post-procedure: Sterile dressing applied Post procedure circulation, sensation,movement: Unable to assess Patient tolerance: Patient tolerated the procedure well with no immediate complicationsBeverly MethodistCTA Head W Wo Mncfnaew1696-10-31 10:29:00Hm Interface, Radiology Results 11/06/2020 10:32 AM CDT EXAMINATION: CT ANGIOGRAM HEAD W WO CONTRASTCOMPARISON: NoneCLINICAL HISTORY: [facility] FrameCOMMENTS: Axial noncontrast and postcontrast CT scan slices the head were obtained. Postprocessing for angiographic evaluation including 3-D reconstructions was obtained. There is an overlying metallic surgical foramen place.CT imaging was performed with iterative reconstruction technique and/or automated exposure control to reduce radiation dose.FINDINGS: Air-fluid level is suspected in the left maxillary sinus. The brain shows no definite acute hemorrhage or mass effect.The internal carotid arteries show no significant stenosis. Right-sided posterior communicating artery is identified.The basilar artery shows no significant stenosis.The proximal cerebral arteries show no definite focal stenosis.The overall visualization is suboptimal. The metallic artifact is most intense at the skull base.IMPRESSION: No obvious arterial lesion on limited CTA . There is continued clinical concern, correlation with DSA angiography is recommended.OPC-[id number] KftfahjarXyxqos0134-81-79 08:16:00GeLizzeth neal CRNA 11/06/2020 10:35 AMAirway Date/Time: 11/06/2020 8:16 AM Location: OR Performed by: BARBARA/Hannah/BARBARA/AA: Lizzeth Pierson CRNAAuthorized by: Ramos Reyes MD Urgency: ElectiveDifficult Airway: No Preoxygenated with 100% O2: Yes C-spine Precautions Maintained Throughout: No Mask Ventilation: Easy maskFinal Airway Type: Endotracheal airwayFinal Endotracheal Airway: ETTCuffed: Yes Technique Used: Video laryngoscopyDevices/Methods Used inPlacement: Intubating styletInsertion Site: OralLaryngoscope Blade/Videolaryngoscope Blade Size: 3ETT Size (mm): 7.0Cuff at minimum occlusion pressure: Yes Measured from: TeethETT to Teeth (cm): 21Placement Verified by: CO2 detection, direct visualization and equal breath sounds Laryngoscopic view: Grade I - full view of glottisRapid Sequence Induction (RSI): No Modified RSI: No Number of Attempts at Approach: 1 Suction ready, easy mask, opted to use glidescope d/t facial scar limiting mouth opening, easy grade 1view, easy intubation. Lips and teeth unchangedBeverly CuhaepzvjIFBU-EiA-8 (COVID-19) RNA [Presence] in Respiratory specimen by AYLA with probe mftyryaag9491-78-82 22:52:46 Test Item Value Reference Range Interpretation Comments SARS-CoV-2 (COVID-19) RNA Not detected Not-Detected [Presence] in Respiratory specimen by AYLA with probe detection (test code = 57417-2) Whether patient is employed in a healthcare setting (test code = 86337-1) Whether the patient has symptoms related to condition of interest (test code = 39182-0) Patient was hospitalized because of this condition (test code = 84925-7) Whether the patient was admitted to intensive care unit (ICU) for condition of interest (test code = 58949-6) Whether patient resides in a congregate care setting (test code = 73365-7) ECG Pre/Post [id number] 18:39:44 Test Item Value Reference Range Interpretation Comments Ventricular rate (test 85 code = 253) Atrial rate (test code 85 = 255) CA interval (test code 154 = 266) QRSD interval (test 86 code = 260) QT interval (test code 368 = 264) QTC interval (test code 437 = 265) P axis 1 (test code = 38 267) QRS axis 1 (test code = 16 268) T wave axis (test code 23 = 270) EKG impression (test Normal sinus code = 273) rhythm-Normal ECG-In automated comparison with ECG of 04-OCT-2020 11:22,-No significant change was found- Enrique Rosario 12 gqof0847-79-41 22:01:49 Test Item Value Reference Range Interpretation Comments Ventricular rate (test 79 code = 253) Atrial rate (test code = 79 255) CA interval (test code = 148 266) QRSD interval (test code 74 = 260) QT interval (test code = 368 264) QTC interval (test code = 421 265) P axis 1 (test code = 27 267) QRS axis 1 (test code = 64 268) T wave axis (test code = 46 270) EKG impression (test code Normal sinus rhythm = 273) with sinus arrhythmia-Electroni juana Signed By Brent Valente MD ([id number]) on 10/04/2020 10:01:47 PM Enrique Bowman tnfbrwu5666-11-45 20:20:59 Test Item Value Reference Range Interpretation Comments Urine culture Mixed prem Specimen isolate (test <=10-3 col/cc InformationSp ecimen code = 61833-2) Source: Urin eSpecimen Site: Clean cat ch Nunez JkudjyeadYRDR-OjP-1 (COVID-19) RNA [Presence] in Respiratory specimen by AYLA with probe eocfqjclr9556-20-00 22:42:57 Test Item Value Reference Range Interpretation Comments SARS-CoV-2 (COVID-19) RNA Not detected Not-Detected [Presence] in Respiratory specimen by AYLA with probe detection (test code = 87485-5) XR Chest 1 Vw Lvkkhspj0681-02-22 17:40:12Hm Interface, Radiology Results Incoming - 09/10/2020 5:43 PM CDT SINGLE VIEW CHEST, 09/10/2020linical History: Seizure.Technique: Single, portable AP view chest.Comparison: 11/12/2019Impression:1.Lungs are clear and symmetrically inflated.2.No pleural effusions or pneumothorax.3.Normal heart size and mediastinal contour for technique.4.Normal pulmonary vasculature.5.Intact skeleton.[place] MethodistEEG (routine)2020-06-28 08:27:01VIDEO-EEG RECORDING AWAKE & DROWSY. [...] were captured. Jojo Cruz MD ICD-10 Code: Q397Pwlupzk MethodistXR Abdomen Acute Inc Bksqh7125-08-96 14:14:14Hm Interface, Radiology Results Incoming - 06/26/2020 [...] evident.Bones/Other: Unremarkable.1D2RAD_PS01[place] MethodistVENIPUNC NEED PHYS SKILL,DX OR WE5034-43-06 10:40:22Juanita Matthew RN 06/26/2020 10:42 AMMidline Insertion [...] Relevant documents present and verified: yes Test results available and properly labeled: yes Imaging studies [...] dosages): Anesthesia method: Local infiltration Local anesthetic: Lidocaine1% w/o epi Route administered: SubcutaneousMidLine Placement Details (Will create an LDA): Patient position: Flat Vessel Size (mm): 3 Indication: Poor venous access and known long term care pharmacist IV therapy Location: Right basilic Device Type: Non-valved Catheter Lumen(s): Single lumen Catheter size: 4 FrMidLine Characteristics: Catheter Brand: BioFlo Midline External Catheter Length (cm):0 Internal Catheter Length (cm): 11 Total Catheter Length (cm): 11 Catheter Lot Number: [id number] Catheter Expiration Date: 1Procedure details: Landmarks identified: [...] applied Blood Loss Amount: Less than 20 mLEnrique SkxambrhzCYMK-HiC-6 (COVID-19) RNA [Presence] in Respiratory specimen by AYLA with probe djbvoluai8249-63-38 17:34:47 Test Item Value Reference Range Interpretation Comments SARS-CoV-2 (COVID-19) RNA Not detected Not-Detected [Presence] in Respiratory specimen by AYLA with probe detection (test code = 45713-6) SARS-CoV-2 (COVID-19) RNA [Presence] in Respiratory specimen by AYLA with probe eocvbfxhv3578-68-74 06:49:36 Test Item Value Reference Range Interpretation Comments SARS-CoV-2 (COVID-19) RNA Not detected Not-Detected [Presence] in Respiratory specimen by AYLA with probe detection (test code = 76781-5) CT Abdomen Pelvis W Rcgxbwhv6931-78-86 01:50:17Hm Interface, Radiology Results 06/19/2020 1:53 AM [...] nondistended.Osseous structures are intact.IMPRESSION:No acute process.Small hiatal hernia.HMRM-WYFYKH3Zosahpc QbmjkotrwCMTI-XwS-0 (COVID-19) RNA [Presence] in Respiratory specimen by AYLA with probe dveivmsrs6479-87-94 22:57:39 Test Item Value Reference Range Interpretation Comments SARS-CoV-2 (COVID-19) RNA Not detected Not-Detected [Presence] in Respiratory specimen by AYLA with probe detection (test code = 66209-6) Epilepsy/Seizure gpgypvqzjr1155-58-94 09:01:11EPILEPSY MONITORING UNIT REPORT Patient Name: Heather [...] left frontal central temporal region. ICD-10 Code: U464Ribgrsf MethodistEpilepsy/Seizure monitoring 2020-04-23 09:00:05EPILEPSY MONITORING UNIT REPORT [...] EEG underwent continuous computerized digital analysis that consis vandana of real time detection of electrical events that could be considered epileptiform. All electrographic events identified by the detection program were visually inspected in order to assess the waveform characteristics and significance of these electrographic events. All intenctal and ictal epileptif orm events are described further below with additional [...] sustained. 4-5 Hz and 1.5-3 Hz activity ispresent in all regions. 18-22 [...] an accentuation of this activity during sleep. Hyperventilati on: No additional abnormalities elicited. Photic Stimulation: No additional abnormalities elicited. Seizures: Seizure #1: This occurred at 16:02 on 03/12/2020. The patient was sitting up in bed and became confused. She had elevation of the arms that were in a tonic posture. She then began to have rota tion movements of the right leg followed by [...] left frontal central temporal region. ICD-10 Code: M852Dvojyxi MethodistEpilepsy/Seizure ezdjfweifp3114-56-07 08:55:34 EPILEPSY MONITORING UNIT REPORT Patient Name: Heather [...] The findings are consistent with a mild diffusedisturbance in brain function with focal potentially epileptogenic lesions in the right and left fron [place] central temporal region. One seizure occurred on 03/12/2020 that was clinically a tonic seizure with possible onset in the left frontal central temporal region. ICD-10 Code: D677Xoyrbks MethodistEpilepsy/Seizure monitoring 2020-04-23 08:45:34EPILEPSY MONITORING UNIT REPORT Patient Name: Heather [...] left frontal central temporal region. ICD-10 Code: F235Jxklowe MethodistEEG (routine)2020-04-05 11:50:53VIDEO-EEG RECORDING AWAKE & ASLEEP. [...] are captured. Jojo Cruz MD ICD-10 Code: A314Rkcuaji YdtezsineVWAS-YdT-7 (COVID-19) RNA [Presence] in Respiratory specimen by AYLA with probe tthqpdlae6642-69-79 04:39:14 Test Item Value Reference Range Interpretation Comments SARS-CoV-2 (COVID-19) RNA Not detected Not-Detected [Presence] in Respiratory specimen by AYLA with probe detection (test code = 03722-2) CRITICAL LDYW6891-41-68 18:48:10BMax gleason MD 04/20/2020 3:37 PMCritical CarePerformed by: Lila ByersAuthorized by: Max Ron MD Critical care provider statement: Critical care time (minutes): 20 Critical care was necessary to treat or prevent imminent or life-threatening deterioration of the following conditions: CARPENTER AND JOINER failure or compromise Critical care was time [...] from another provider.: Hawa CruzistPET Brain Metabolic Aqng6180-80-12 14:42:07Hm Interface, Radiology Results 03/30/2020 2:45 PM CDT PROCEDURE: PET BRAIN [...] interictal study.2.Diffuse cerebellar hypometabolism suggests a pharmacologic effect.[facility]-[id number] [facility] SARS-CoV-2 (COVID-19) RNA [Presence] in Respiratory specimen by AYLA with probe dbenjnidu1246-04-30 19:18:01 Test Item Value Reference Range Interpretation Comments SARS-CoV-2 (COVID-19) RNA Not detected Not-Detected [Presence] in Respiratory specimen by AYLA with probe detection (test code = 41962-0) RPR Ubsmiyngpom6086-93-70 16:47:08 Test Item Value Reference Range Interpretation [...] = 06-14-2020 N Expiration Dt) Thyroid Stimulating Grvawfz1727-98-89 06:31:44 Test Item Value Reference Range Interpretation Comments TSH (test code = TSH) 3.830 mIU/mL 0.270-4.200 Lipid Zhbvj4975-10-83 06:24:40 Test Item Value Reference Range Interpretation Comments Cholesterol Total 152 mg/dL 0-200 RISK OF HE ART (test code = DISEASEPublishe d by Cholesterol Total) [place] [employer] Laurel lyte Optimal Borderl ine [...] LDL/HDL Ratio=L DL Calc/HDL Chol Urine Drug Depios7004-79-07 21:53:06 Test Item Value Reference Range Interpretation [...] if desired . Urinalysis with Culture, if rspidzkae8416-72-58 21:40:53 Test Item Value Reference Range Interpretation [...] UA Not Indicated Not Indicated Micro Ind?) Alcohol Qnjvx8423-30-58 21:34:15 Test Item Value Reference Range Interpretation Comments Ethanol Level (test <0.00 g/dL 0.00-0.01 Intoxica vandana 0.080 g/dL code = Ethanol or more Level) Ethanol Inst (test <0 N code = Ethanol Inst) Comprehensive Metabolic Zkaeq2321-48-46 21:34:15 Test Item Value Reference Range Interpretation [...] National Kidney Foundation, http://nkdep.ni h.gov Comprehensive Metabolic Lkapf6283-98-76 21:34:15 Test Item Value Reference Range Interpretation [...] National Kidney Foundation, http://nkdep.ni h.gov Comprehensive Metabolic Xudqj4142-89-11 21:34:15 Test Item Value Reference Range Interpretation [...] code = A/G 1.6 ratio N Ratio) Complete Blood Count with Uqdpnmkcfqlc6854-65-00 21:15:24 Test Item Value Reference Range Interpretation [...] code = IPF) 0 % N Automated Jwsvteodpsqv6050-15-42 21:15:24 Test Item Value Reference Range Interpretation Comments Neutro Auto (test code = Neutro 54.3 % 36.0-70.0 Auto) Lymph Auto (test code = Lymph Auto) 32.3 % 12.0-44.0 Broome Auto (test code = Broome Auto) 11.1 % 0.0-11.0 H Eos, Auto (test code = Eos, Auto) 1.3 % 0.0-7.0 Basophil Auto (test code = Basophil 0.7 % 0.0-2.0 Auto) Neutro Absolute (test code = Neutro 6.2 x10 1.6-7.4 Absolute) Lymph Absolute (test code = Lymph 3.71 x10 .50-4.60 Absolute) Broome Absolute (test code = Broome 1.28 x10 .00-1.20 H Absolute) Eos Absolute (test code = Eos 0.15 x10 0.00-0.74 Absolute) Baso Absolute (test code = Baso 0.08 x10 0.00-0.21 Absolute) IG Siufl6888-34-24 21:15:24 Test Item Value Reference Range Interpretation Comments IG (test code = IG) 0.3 % 0.0-5.0 IG Abs (test code = IG Abs) 0 x10 N HCG Qualitative Nxqgt3998-18-65 20:45:17 Test Item Value Reference Range Interpretation [...] 72 hours. Lot # (test code = [id number] N Lot #) Expiration Dt (test 2020-12-12 N code = Expiration Dt) Neg Control (test Negative code = Neg Control) Pos Control (test Positive code = Pos Control) Internal QC (test Acceptable code = Internal QC) RPR Wnrgewzlbtb9640-39-95 12:07:58 Test Item Value Reference Range Interpretation [...] = 04-14-2020 N Expiration Dt) Thyroid Stimulating Vvoxier8173-45-57 07:59:52 Test Item Value Reference Range Interpretation Comments TSH (test code = TSH) 0.717 mIU/mL 0.270-4.200 Lipid Ryzre5578-64-77 07:52:46 Test Item Value Reference Range Interpretation Comments Cholesterol Total 141 mg/dL 0-200 RISK OF HE ART (test code = DISEASEPublishe d by Cholesterol Total) [place] [employer] Laurel lyte Optimal Borderl ine [...] LDL/HDL Ratio=L DL Calc/HDL Chol Urine Drug Oobvna9106-55-96 15:27:40 Test Item Value Reference Range Interpretation [...] matory test if desired . Comprehensive Metabolic Ilnsc4277-12-20 15:15:20 Test Item Value Reference Range Interpretation [...] A/G 1.9 ratio N Ratio) Comprehensive Metabolic Hopqf4905-62-35 15:15:20 Test Item Value Reference Range Interpretation [...] the National Kidney Foundation, http://nkdep.ni h.gov Alcohol Evbof7220-89-99 15:15:20 Test Item Value Reference Range Interpretation Comments Ethanol Level (test <0.00 g/dL 0.00-0.01 Intoxica vandana 0.080 g/dL code = Ethanol or more Level) Ethanol Inst (test <0 N code = Ethanol Inst) Comprehensive Metabolic Xqkbw1238-14-28 15:15:20 Test Item Value Reference Range Interpretation [...] the National Kidney Foundation, http://nkdep.ni h.gov Urinalysis Ifjnwvkuzkz2036-28-55 15:11:20 Test Item Value Reference Range Interpretation Comments UA WBC (test code = UA WBC) 6-10 0-5 A UA RBC (test code = UA RBC) 0-5 0-5 UA Bacteria (test code = UA Moderate A Bacteria) UA Squam Epithelial (test code = UA TNTC A Squam Epithelial) UA Mucous (test code = UA Mucous) Few A Urinalysis with Microscopic if frtthnsbd9115-44-36 14:42:58 Test Item Value Reference Range Interpretation [...] GL_SJM_UA_MICRO _IN D Complete Blood Count with Fqircyyrxlkf2904-44-48 14:37:26 Test Item Value Reference Range Interpretation [...] code = IPF) 0 % N Automated Fjlajotxnppd8402-15-72 14:37:26 Test Item Value Reference Range Interpretation Comments Neutro Auto (test code = Neutro 65.8 % 36.0-70.0 Auto) Lymph Auto (test code = Lymph Auto) 25.5 % 12.0-44.0 Broome Auto (test code = Broome Auto) 7.3 % 0.0-11.0 Eos, Auto (test code = Eos, Auto) 0.7 % 0.0-7.0 Basophil Auto (test code = Basophil 0.5 % 0.0-2.0 Auto) Neutro Absolute (test code = Neutro 6.0 x10 1.6-7.4 Absolute) Lymph Absolute (test code = Lymph 2.34 x10 .50-4.60 Absolute) Broome Absolute (test code = Broome .67 x10 .00-1.20 Absolute) Eos Absolute (test code = Eos 0.06 x10 0.00-0.74 Absolute) Baso Absolute (test code = Baso 0.05 x10 0.00-0.21 Absolute) IG Vetro3893-53-73 14:37:26 Test Item Value Reference Range Interpretation Comments IG (test code = IG) 0.2 % 0.0-5.0 IG Abs (test code = IG Abs) 0 x10 N HCG Qualitative [id number] 14:34:08 Test Item Value Reference Range Interpretation [...] 72 hours. Lot # (test code = [id number] N Lot #) Expiration Dt (test 2020-03-14 N code = Expiration Dt) Neg Control (test Negative code = Neg Control) Pos Control (test Positive code = Pos Control) Internal QC (test Acceptable code = Internal QC) DRUGS OF ABUSE SCREEN [id number] 17:11:00 Test Item Value Reference Range Interpretation [...] = [place]) concentrati on: 300 ng/mL URINALYSIS [id number] 17:08:00 Test Item Value Reference Range Interpretation [...] (test code = MOD NONE BACU) URINALYSIS [id number] 17:00:00 Test Item Value Reference Range Interpretation [...] (test code = NONE BACU) HCG SERUM [id number] 16:52:00 Test Item Value Reference Range Interpretation Comments HCG SERUM QUAL (test code = HCGQL) NEGATIVE NEGATIVE - CT HEAD/BRAIN W/O [id number] 16:51:00 FAX: Theresa Fields MD [place]: St: REG Name: HEATHER HOPE [facility] : 1990 Age/S: 28/F [address] [facility] Unit: [id number] Loc: [place], [place] Phys: [place] [id number] Acct: [id number] Dis Date: Status: REG E R PHONE #: [phone] Exam Date: 02/23/2019 1642 FAX #: [phone] Reason: SEIZURE EXAMS: CPT CODE: [id number] CT HEAD/BRAIN W/O CONT 44017 Dictation location: U19. CT HEAD WITHOUT CONTRAST. [...] MD Technologist: HEATHER DICKSON Trnscrd Dt/Tm: 02/23/2019 (3392) t.[email or web address] Orig Print D/T: S: 02/23/2019 (7224 PAGE 1 Signed ReportBASIC METABOLIC [id number] 16:31:00 Test Item Value Reference Range Interpretation [...] CA) 8.8 mg/dl 8.0-10.5 N BASIC METABOLIC [id number] 16:26:00 Test Item Value Reference Range Interpretation [...] code = CA) mg/dl 8.0-10.5 CBC W/AUTO [id number] 16:15:00 Test Item Value Reference Range Interpretation [...] 3-60 N code = VLDL) RAPID PLASMA [id number] 10:31:00 Test Item Value Reference Range Interpretation Comments RAPID PLASMA REAGIN (test code = Nonreactive Nonreactive RPR) GLYCOSYLATED HEMOGLOBIN (HA1C)2018-12-07 10:05:00 Test Item Value Reference Range Interpretation Comments GLYCOSYLATED HEMOGLOBIN (HA1C) 5.8 % TOT HB 4.5-6.2 N (test code = GLYHGB) [id number] 15:31:00 Test Item Value Reference Range Interpretation Comments ACETAMINOPHEN (test < 1 MCG/ML 10-30 L Acetamin ophen is code = ACET) possibly toxic at levels of: 1. m ore than 150 MCG/ML 4 hours post kaylin stion. 2. more than 5 0 MCG/ML 12 hours post ingestion. [id number] 15:31:00 Test Item Value Reference Range Interpretation Comments SALICYLATE (test code = < 3 MG/DL 0-20 N Refe rence Range: BOSSMAN) Analgesic...... ...... ...... < 10 mg /dl Therapeutic.... ...... ...... 15-20 mg /dl Mild Toxicity....... ...... . > 30 mg/dl Severe Toxicity....... ..... > 60 mg/dl UA [id number] 14:18:00 Test Item Value Reference Range Interpretation Comments UA WBC (test code = WBCU) < 10 #/hpf <10 UA RBC (test code = RBCU) 0-2 #/hpf NONE SEEN A UA BACTERIA (test code = BACU) RARE #/hpf NONE SEEN UA SQUAMOUS CELLS (test code = 0 - 20 #/lpf <100 SQU) UA MUCUS (test code = MUCU) 1+ #/lpf NONE SEEN UA RFLX [id number] 14:18:00 Test Item Value Reference Range Interpretation [...] DESCRIPTION Clean Catch (test code = UASPEC) BASIC METABOLIC [id number] 14:16:00 Test Item Value Reference Range Interpretation [...] 9.4 MG/DL 8.7-10.5 N CA) HEPATIC FUNCTION [id number] 14:16:00 Test Item Value Reference Range Interpretation [...] 50-136 N TOTAL (test code = ALKP) [id number] 14:16:00 Test Item Value Reference Range Interpretation Comments CK (test code = CKT) 87 Units/L 26-192 N [id number] 14:16:00 Test Item Value Reference Range Interpretation Comments ALCOHOL (test code = < 3 MG/DL 0-10 N 0 - 10: Should be ALC) interpreted as NEGATIVE. 11 - 50: None to mild euphoria. 51 - 100: Mild influence on vision and dark adapta tion. > 80: Legal intoxication; D epression of CARPENTER AND JOINER; Increasing degr ee of poisoning. > 400: Fatalities repo rted. Results are for medical purposes only a nd not forlegal or emp loyment evaluative purp oses. BASIC METABOLIC [id number] 14:09:00 Test Item Value Reference Range Interpretation [...] 9.4 MG/DL 8.7-10.5 N CA) HEPATIC FUNCTION [id number] 14:09:00 Test Item Value Reference Range Interpretation [...] TOTAL (test Units/L 50-136 code = ALKP) [id number] 14:09:00 Test Item Value Reference Range Interpretation Comments CK (test code = CKT) Units/L 26-192 [id number] 14:09:00 Test Item Value Reference Range Interpretation Comments ALCOHOL (test code = ALC) MG/DL 0-10 LACTIC ACID [id number] 13:50:00 Test Item Value Reference Range Interpretation Comments LACTIC ACID POC 0.97 MMOL/L 0.90-1.70 N Performed by certified (test code = LACTP) plodding operator at [facility] [id number] 13:48:00 Test Item Value Reference Range Interpretation Comments GLUBED (test code = 88 MG/DL 65-99 N Performe d by certified GLUBED) plodding operator at [facility] DRUG OF ABUSE SCREEN [id number] 13:43:00 Test Item Value Reference Interpretation Comments [...] by layton rader methods (i.e., GC/MS) at [facility]. Results of scre en may not be usedin crimi nal justice, job performance or professionalcre dential review, or infa nt custody issues. Negativ e [place] Level ng/ml ------- ----- Cocaine 300 Methamp hetamine (Ecstacy) 500 Cannabinoids (THC) 50 Amphetamine 1000 Barbiturate s 200 Benzodia zepines 200 Opiat es 300 Ph encyclidine (PCP) 25 UR HCG [id number] 13:39:00 Test Item Value Reference Range Interpretation [...] using aquantitative h CG assay. UA RFLX [id number] 13:38:00 Test Item Value Reference Range Interpretation [...] Clean Catch (test code = UASPEC) UA [id number] 13:38:00 Test Item Value Reference Range Interpretation Comments UA WBC (test code = WBCU) #/hpf <10 UA RBC (test code = RBCU) #/hpf NONE SEEN UA SQUAMOUS CELLS (test code = SQU) #/lpf <100 UA RFLX [id number] 13:38:00 Test Item Value Reference Range Interpretation [...] Clean Catch (test code = UASPEC) UA [id number] 13:38:00 Test Item Value Reference Range Interpretation Comments UA WBC (test code = WBCU) #/hpf <10 UA RBC (test code = RBCU) #/hpf NONE SEEN UA SQUAMOUS CELLS (test code = SQU) #/lpf <100 CBC W/AUTO [id number] 13:26:00 Test Item Value Reference Range Interpretation [...] = BA#) 0.05 x10 3/uL 0.0-0.2 N [id number] 19:07:00 Test Item Value Reference Interpretation Comments Range LEVETIRACETAM 28.7 ug/mL 10.0-40.0 This test was developed and (test code = its performance LEVTAM) characteristics determined by [facility]. It has not been cleared orappro froylan by the Food and Drug Administration. Performed At: [address] [id number] ra Larissa MENDOZA Ph:[phone] BASIC METABOLIC [id number] 04:58:00 Test Item Value Reference Range Interpretation [...] code = 8.9 MG/DL 8.7-10.5 N CA) [id number] 04:58:00 Test Item Value Reference Range Interpretation Comments MAGNESIUM (test code = MAG) 1.9 MG/DL 1.8-2.4 N CBC W/AUTO [id number] 04:08:00 Test Item Value Reference Range Interpretation [...] 0.0-0.2 N NRBC#) - MRI BRAIN W/O [id number] 13:51:00 Patient Name: HEATHER HOPE Unit No: [id number] EXAMS: CPT CODE: [id number] MRI BRAIN W/O CONTRAST 69986 Reason: sz INDICATION: Seizure COMPARISON: CT brain, [...] MD Technologist: Andre Self MRI Trscrpt Dt/ (3778)AngeliqueDW6 Orig Print D/T: S: 09/17/2018 (5377) [facility] CntNAME: HEATHER HOPE NOVEMBER [address] PHYS: [place] [address] : 1990 AGE: 27 SEX: F LOC: D.D313 1 PHONE #: [phone] EXAM DATE: 09/17/2018 STATUS: ADM IN FAX #: RAD NO: DC Dt: PAGE 1 Signed [id number] 07:25:00 Test Item Value Reference Range Interpretation Comments PROLACTIN (test code = 24.6 ng/mL 4.8-23.3 H Perfo rmed At: [facility] PROLAC) [facility] [id number] Sb Man MD Ph:[phone] UA RFLX MICROSCOPIC [id number] 19:02:00 Test Item Value Reference Range Interpretation [...] UACULT) URINE SOURCE: Clean CatchUA RFLX MICROSCOPIC [id number] 18:56:00 Test Item Value Reference Range Interpretation [...] (test code = UACULT) URINE SOURCE: Clean [id number] 15:56:00 Test Item Value Reference Range Interpretation Comments CK (test code = CKT) 34 Units/L 26-192 N BASIC METABOLIC [id number] 12:57:00 Test Item Value Reference Range Interpretation [...] code = 8.6 MG/DL 8.7-10.5 L CA) [id number] 12:57:00 Test Item Value Reference Range Interpretation Comments CK (test code = CKT) 32 Units/L 26-192 N CBC W/AUTO [id number] 12:33:00 Test Item Value Reference Range Interpretation [...] 3/uL 0.0-0.2 N NRBC#) TOTAL IRON BINDING [id number] 05:50:00 Test Item Value Reference Range Interpretation Comments SERUM IRON (test code = IRON) 17 MCG/DL 50-170 L TOTAL IRON BINDING CAPACITY (test 363 MCG/DL 280-400 N code = TIBC) IRON SATURATION (test code = 5 % 15-50 L FESAT) [id number] 05:50:00 Test Item Value Reference Range Interpretation Comments FERRITIN (test code = LULI) 11 NG/ML 3-105 N HEPATIC FUNCTION [id number] 05:32:00 Test Item Value Reference Range Interpretation [...] code = ALKP) - CT HEAD/BRAIN W/O [id number] 20:19:00 Patient Name: HEATHER HOPE Unit No: [id number] EXAMS: CPT CODE: [id number] CT HEAD/BRAIN W/O CONT 37769 Reason: seizure TECHNIQUE: Contiguous 5 mm images [...] MD CC: Keanu Vázquez MD; Cristiane Heath Technolog ist: Edel Cade CT Trscrpt Dt/ (2018)t.PAMELA Orig Print D/T: S: 09/14/2018 (2021) CTDI: DLP: [facility] NAME: [place] [id number] PHYS: NGA. - Keanu Váz[place] [address] : 1990 AGE: 27 SEX: F LOC: D.KIN PHONE#: [phone] EXAM DATE: 09/14/2018 STATUS: REG ER FAX #: RAD NO: DC Dt: PAGE 1 Signed Report- XR CHEST 1 [id number] 20:18:00 [facility] Unit No: [id number] EXAMS: CPT CODE: [id number] XR CHEST 1 V 27984 Reason: screen for pneumonia FINDINGS: Single view ofthe chest shows normal heart size and pulmonary vasculature. The lungs are clear bilaterally. There is no focal infiltrate, pleural effusion or pneumothorax. IMPRESSION: No acute cardiopulmonary findings at 2018 Reported and signed by: Lashell Jimenez MD CC: Keanu Vázquez MD; Cristiane Heath Technologist: Edel Cade CT Trscrpt Dt/ (2017)Tristan Orig PrintD/T: S: 09/14/2018 (2020) [facility] PHYS: NGA. - Keanu Váz[place] [address] : 1990 AGE: 27 SEX: F LOC: MATT PHONE #: [phone] EXAM DATE: 09/14/2018 STATUS: REG ER FAX #: RAD NO: DC Dt: PAGE 1 Signed ReportHCG SERUM QUAL 2018-09-14 20:04:00 Test Item Value Reference Range Interpretation [...] using aquantitative h CG assay. BASIC METABOLIC [id number] 19:51:00 Test Item Value Reference Range Interpretation [...] 9.3 MG/DL 8.7-10.5 N CA) CBC W/AUTO [id number] 19:46:00 Test Item Value Reference Range Interpretation [...] BA#) 0.05 x10 3/uL 0.0-0.2 N BLOOD [id number] 10:00:00 Test Item Value Reference Range Interpretation Comments CULTURE (3DSoCAKER) (test No growth in 5 days code = 1095) HCG, QUANTITATIVE, [id number] 15:37:00 Test Item Value Reference Range Interpretation Comments GONADOTROPIN, CHORIONIC (HCG) 62100 mIU/mL 0-10 H QUANT (BEAKER) (test code = 649) Non- Females: <10 mIU/mL Females: Gestation Age Reference Range(mIU/mL) 0.2-1 Week 5-50 1-2 Weeks 50-500 2-3 Weeks 100-5,000 3-4Weeks 500-10,000 4-5 Weeks 1,000-50,000 5-6 Weeks 10,000-100,000 6-8 Weeks 15,000-200,000 2-3 Months 10,000-100,000COMPREHENSIVE METABOLIC [id number] 15:10:00 Test Item Value Reference Range Interpretation [...] PATIEN TS. CBC W/PLT COUNT & AUTO [id number] 14:53:00 Test Item Value Reference Range Interpretation [...] (test code = 2801) U/S, , FIRST [id number] 07:52:00Reason for exam:-> Reason for exam:->please include [...] 1 day. An embryonic pole is evident. [place]-rump length measures 0.63 cm, correlating with estimated [...] MDReport Verified Date/Time: 05/17/2017 07:52:37 Reading Location: [address] Consult Reading Room PREGNANCY SCREEN, [id number] 05:28:00 Test Item Value Reference Range Interpretation Comments TEST URINE (BEAKER) (test Positive code = 583) MR, BRAIN, WITHOUT [id number] 18:54:00Reason for exam:->Stroke evaluationFINAL REPORT MRI brain [...] Parra Verified Date/Time: 05/15/2017 18:54:11 Reading Location: [facility] Radiology Reading Room EEG AWAKE AND [id number] 12:08:00Reason for exam:->? nonconvulsive statusDATE OF TEST: 05/15/2017DATE OF REPORT 05/15/2017 ACC: [id number] EE Start time: 1034 Stop time: 1054 ICD-10: R56.9CPT Code: 62772DGNIBTY: 26 y/o woman with epilepsy found down [...] recordings.Marika Smith M.D.Neurophysiology FellowSwathi Harper M.D.Neurophysiology Attending [id number] 04:27:00 Test Item Value Reference Range Interpretation Comments PROCALCITONIN (BEAKER) (test code 0.17 ng/mL <0.05 H = 3036) SEPSIS RISK (ng/mL)Low: 0.05-0.50Intermediate: 0.51-2.00High: >=[id number] 03:15:00 Test Item Value Reference Range Interpretation Comments PHOSPHORUS (BEAKER) (test code = 3.1 mg/dL 2.3-4.7 604) [id number] 03:15:00 Test Item Value Reference Range Interpretation Comments MAGNESIUM (BEAKER) (test code = 1.9 mg/dL 1.6-2.6 627) BASIC METABOLIC [id number] 03:15:00 Test Item Value Reference Range Interpretation [...] code = 380) LACTIC ACID, VENOUS, WHOLE [id number] 03:09:00 Test Item Value Reference Range Interpretation Comments LACTATE BLOOD VENOUS (2) (BEAKER) 0.6 mmol/L 0.5-2.2 (test code = 2872) Effective 10/17/2015: Units/Reference Range ChangeNew: 0.5-2.2 mmol/L Previous: 5-20 mg/dLPROTHROMBIN TIME/[id number] 03:07:00 Test Item Value Reference Range Interpretation [...] = 2801) RAD, CHEST, 1 VIEW, NON [id number] 01:06:00Reason for exam:->possible infectionShould this be performed [...] MDReport Verified Date/Time: 05/15/2017 01:06:06 Reading Location: [address] Reading Room
[2020-11-21] MEDS ORDERED: NA CHLORIDE 0.9% 1,000 ML ONE (22:10)
[2020-11-21 22:14] LABS: Absolute Lymphocytes (CBC) 2.6 K/uL (0.7-4.9); Basophils % 0.9 % (0-1.3); Lymphocytes % 30.4 % (15.3-44.8); RBC Red Blood Cell Count 4.06 M/uL (3.86-4.86)
[2020-11-21 22:25] LABS: Protime INR 1.06
[2020-11-21 23:03] LABS: ALT/SGPT 18 U/L (12-78); AST/SGOT 15 U/L (15-37); Albumin 4.2 g/dL (3.4-5.0); Alkaline Phosphatase 92 U/L (45-117); BUN Blood Urea Nitrogen 5 mg/dL (7-18); Bicarbonate 22 mmol/L (21-32); Bilirubin Direct < 0.1 mg/dL (0-0.2); Bilirubin Total 0.3 mg/dL (0.2-1.0); Glucose Level 121 mg/dL (74-106); Potassium 3.4 mmol/L (3.5-5.1); Sodium Level 139 mmol/L (136-145)
[2020-11-21] MEDS ORDERED: LORazepam 2 MG/ML VIAL ONE (23:03)
[2020-11-21 23:27] LABS: Phenytoin (Dilantin) Level 32.7 ug/mL (10.0-20.0)
--- NOTE | 2020-11-21 23:32 | EDPHYS ---
Physician Documentation [facility] Name: Heather Hope Age: 30 yrs Sex: Female : 1990 Arrival Date: 11/21/2020 Time: 21:28 Bed 4 Private MD: ED Physician Steve Lawrence HPI: 11/21 22:20 This 30 yrs old Female presents to ER via EMS with complaints of weakness, issac dizziness and loy. 22:20 weakness, loy. The patient presents with dizziness. Onset: The symptoms/episode issac began/occurred 23 day(s) ago. Context: occurred at home. Modifying factors: The symptoms are alleviated by nothing, the symptoms are aggravated by nothing. Associated signs and symptoms: Pertinent positives: nausea. Severity of symptoms: At their worst the symptoms were mild in the emergency department the symptoms are unchanged. Patient's baseline: Neuro: alert and fully oriented. FURNACE CONVERTER: 11/22 00:23 LMP N/A - ad5 Historical: - Allergies: 11/21 21:35 No Known Allergies; ad5 - PMHx: 21:35 Anemia; Depression; Seizures; ad5 - Immunization history:: Adult Immunizations unknown. - Social history:: Smoking status: unknown. - Family history:: not pertinent. ROS: 22:20 Constitutional: Negative for fever, chills, and weight loss, Eyes: Negative for injury, issac pain, redness, and discharge, ENT: Negative for injury, pain, and discharge, Neck: Negative for injury, pain, and swelling, Cardiovascular: Negative for chest pain, palpitations, and edema, Respiratory: Negative for shortness of breath, cough, wheezing, and pleuritic chest pain, Abdomen/GI: Negative for abdominal pain, nausea, vomiting, diarrhea, and constipation, Back: Negative for injury and pain, : Negative for injury, bleeding, discharge, and swelling, MS/Extremity: Negative for injury and deformity, Skin: Negative for injury, rash, and discoloration, Psych: Negative for depression, anxiety, suicide ideation, homicidal ideation, and hallucinations, Allergy/Immunology: Negative for hives, rash, and allergies, Endocrine: Negative for neck swelling, polydipsia, polyuria, polyphagia, and marked weight changes, Hematologic/Lymphatic: Negative for swollen nodes, abnormal bleeding, and unusual bruising. 22:20 Neuro: Positive for dizziness. Exam: 22:20 Constitutional: This is a well developed, well nourished patient who is awake, alert, issac and in no acute distress. Head/Face: Normocephalic, atraumatic. Eyes: Pupils equal round and reactive to light, extra-ocular motions intact. Lids and lashes normal. Conjunctiva and sclera are non-icteric and not injected. Cornea within normal limits. Periorbital areas with no swelling, redness, or edema. ENT: Nares patent. No nasal discharge, no septal abnormalities noted. Tympanic membranes are normal and external auditory canals are clear. Oropharynx with no redness, swelling, or masses, exudates, or evidence of obstruction, uvula midline. Mucous membranes moist. Neck: Trachea midline, no thyromegaly or masses palpated, and no cervical lymphadenopathy. Supple, full range of motion without nuchal rigidity, or vertebral point tenderness. No Meningismus. Chest/axilla: Normal chest wall appearance and motion. Nontender with no deformity. No lesions are appreciated. Cardiovascular: Regular rate and rhythm with a normal S1 and S2. No gallops, murmurs, or rubs. Normal PMI, no JVD. No pulse deficits. Respiratory: Lungs have equal breath sounds bilaterally, clear to auscultation and percussion. No rales, rhonchi or wheezes noted. No increased work of breathing, no retractions or nasal flaring. Abdomen/GI: Soft, non-tender, with normal bowel sounds. No distension or tympany. No guarding or rebound. No evidence of tenderness throughout. Back: No spinal tenderness. No costovertebral tenderness. Full range of motion. Female : Normal external genitalia. Skin: Warm, dry with normal turgor. Normal color with no rashes, no lesions, and no evidence of cellulitis. MS/ Extremity: Pulses equal, no cyanosis. Neurovascular intact. Full, normal range of motion. Neuro: Awake and alert, GCS 15, oriented to person, place, time, and situation. Cranial nerves II-XII grossly intact. Motor strength 5/5 in all extremities. Sensory grossly intact. Cerebellar exam normal. Normal gait. Psych: Awake, alert, with orientation to person, place and time. Behavior, mood, and affect are within normal limits. 22:20 Musculoskeletal/extremity: DVT Exam: No signs of deep vein thrombosis. no pain, no swelling, no tenderness, negative Homans' sign noted on exam, no appreciated bluish discoloration, no erythema, no increased warmth. 22:30 Neck: ROM/movement: is normal, no acute changes, limited range of motion, is not issac appreciated, Meningeal signs: are not present, Kernig's sign is negative, Brudzinski's sign is negative, nuchal rigidity, is not appreciated. 22:32 ECG was reviewed by the Attending Physician. issac Vital Signs: 21:31 BP 156 / 105; Pulse 107; Resp 18 S; Temp 100.0; Pulse Ox 99% on R/A; Weight 70.31 kg; ad5 Height 5 ft. 3 in. (160.02 cm); Pain 0/10; 22:24 BP 121 / 73; Pulse 99; Resp 16 S; Pulse Ox 99% on R/A; ad5 23:30 BP 111 / 78; Pulse 95; Resp 16 S; Pulse Ox 97% on R/A; ad5 06 00:23 BP 111 / 74; Pulse 99; Resp 16 S; Pulse Ox 96% on R/A; Pain 0/10; ad5 11/21 21:31 Body Mass Index 27.46 (70.31 kg, 160.02 cm) ad5 MDM: 11/21 21:43 Patient medically screened. issac 22:26 Differential Diagnosis altered mental status. Differential diagnosis: cardiac issac arrhythmia, CVA, head injury, hypovolemia, idiopathic dizziness. Data reviewed: vital signs, nurses notes, lab test result(s), EKG, radiologic studies, CT scan. Data interpreted: monitor worker: rate is 99 beats/min, rhythm is regular, Pulse oximetry: on room air 99L(s) per nasal canula. Test interpretation: by ED physician or midlevel provider: ECG, plain radiologic studies. Counseling: I had a detailed discussion with the patient and/or guardian regarding: the historical points, exam findings, and any diagnostic results supporting the discharge/admit diagnosis, lab results, radiology results. 11/21 21:46 Order name: Acetaminophen [facility] 11/21 21:46 Order name: Basic Metabolic Panel [facility] 11/21 21:46 Order name: CBC with Diff [facility] 11/21 21:46 Order name: ETOH Level [facility] 11/21 21:46 Order name: Hepatic Function; Complete Time: 23:51 [facility] 11/21 21:46 Order name: PT-INR; Complete Time: 22:29 [facility] 11/21 21:46 Order name: Ptt, Activated; Complete Time: 22:29 [facility] 11/21 21:46 Order name: Salicylate; Complete Time: 23:07 [facility] 11/21 21:46 Order name: Urine Drug Screen [facility] 11/21 21:46 Order name: Urine Culture [facility] 11/21 21:46 Order name: Dilantin; Complete Time: 23:51 [facility] 11/21 21:46 Order name: Acetaminophen Level; Complete Time: 23:51 [facility] 11/21 21:46 Order name: Basic Metabolic Panel; Complete Time: 23:51 [facility] 11/21 21:46 Order name: CT Head Brain wo Cont [facility] 11/21 21:46 Order name: CBC with Automated Diff; Complete Time: 22:29 [facility] 11/21 21:46 Order name: Alcohol Serum/Plasma; Complete Time: 23:07 [facility] 11/21 22:28 Order name: Chest Single View XRAY [facility] 11/21 22:30 Order name: COVID-19 : Document "Date of Symptom Onset" if Symptomatic. [facility] 11/21 22:30 Order name: Flu [facility] 11/21 22:30 Order name: Strep [facility] 11/21 22:30 Order name: Influenza Screen (A ; Complete Time: 02:13 [facility] 11/21 22:30 Order name: Group A Streptococcus Rapid Sc; Complete Time: 02:13 [facility] 11/21 23:23 Order name: SARS-COV-2 RT PCR; Complete Time: 23:51 [facility] 11/22 01:06 Order name: Throat Culture [facility] 11/21 21:46 Order name: EKG; Complete Time: 21:46 [facility] 11/21 21:46 Order name: EKG - Nurse/Tech; Complete Time: 21:49 [facility] 11/21 21:46 Order name: IV Saline Lock; Complete Time: 21:49 [facility] 11/21 21:46 Order name: Labs collected and sent; Complete Time: 21:49 [facility] 11/21 21:46 Order name: Seizure Precautions; Complete Time: 21:49 [facility] EC:32 Rate is 108 beats/min. Rhythm is regular. QRS Independence is Normal. HI interval is normal. [facility] QRS interval is normal. QT interval is normal. No Q waves. T waves are Normal. No ST changes noted. Clinical impression: NSR w/ Non-specific ST/T Changes and No evidence of ischemia. Interpreted by me. Reviewed by me. Administered Medications: 21:55 Drug: NS 0.9% 1000 ml Route: IV; Rate: 1 bolus; Site: right forearm; ad5 11/22 00:29 Follow up: IV Status: Completed infusion; IV Intake: 1000ml ad5 11/21 22:50 Drug: Ativan (LORazepam) 1 mg Route: IVP; Site: right forearm; ad5 11/22 00:29 Follow up: Response: No adverse reaction; Anxiety decreased ad5 00:29 Not Given (s/s improved): Ativan (LORazepam) 1 mg IVP once ad5 00:29 Not Given (Patient Refused): Potassium Effervescent Tablet 25 mEq PO once; dissolve in ad5 4 ounces of water or juice Disposition: 11/21/20 23:31 Hospitalization ordered by Jaime Rodgers for Observation. Preliminary diagnosis are Poisoning by hydantoin derivatives, undetermined - ACCIDENTAL, Anxiety disorder, unspecified. - Bed requested for Telemetry/MedSurg (observation). - Status is Observation. jb4 - Condition is Fair. - Problem is new. - Symptoms have improved. Signatures: Dispatcher [employer] EDIL Steve Lawrence MD MD cha Munoz, Edgar, RN RN Killian Zee, ADOBE FLEX DEVELOPER-C ADOBE FLEX DEVELOPER-Cla1 Don Ag RN RN jb4 Tarun Bland ad5 Corrections: (The following items were deleted from the chart) 11/21 22:11 21:46 CORONAVIRUS+MR.LAB.BRZ ordered. [facility] 11/22 00:23 11/21 23:31 Hospitalization Ordered by Jaime Rodgers DO for Observation. Preliminary em diagnosis is Poisoning by hydantoin derivatives, undetermined - ACCIDENTAL; Anxiety disorder, unspecified. Bed requested for Telemetry/MedSurg (observation). Status is Observation. Condition is Fair. Problem is new. Symptoms have improved. [facility] 11/22 01:06 11/21 22:30 CORONAVIRUS ordered. [facility] 11/22 01:25 00:23 11/21/2020 23:31 Hospitalization Ordered by Jaime Rodgers DO for Observation. jb4 Preliminary diagnosis is Poisoning by hydantoin derivatives, undetermined - ACCIDENTAL; Anxiety disorder, unspecified. Bed requested for Telemetry/MedSurg (observation). Status is Observation. Condition is Fair. Problem is new. Symptoms have improved. em
--- NOTE | 2020-11-21 23:32 | ER ---
Nurse's Notes [facility] Name: Heather Hope Age: 30 yrs Sex: Female : 1990 Arrival Date: 11/21/2020 Time: 21:28 Bed 4 Private MD: Diagnosis: Poisoning by hydantoin derivatives, undetermined-ACCIDENTAL;Anxiety disorder, unspecified Presentation: 11/21 21:31 Chief complaint: EMS states: Pt BIB EMS from home for c/o "anxiety" and general not ad5 feeling well. EMS reports pt stated recent stress with S.O. at home, pt denies injury or trauma. Pt with recent elective brain surgery r/t hx of seizures. Pt denies SI/HI, cooperative with staff. Coronavirus screen: At this time, the client does not indicate any symptoms associated with coronavirus-19. Ebola Screen: No symptoms or risks identified at this time. Initial Sepsis Screen: Does the patient meet any 2 criteria? HR > 90 bpm. No. Patient's initial sepsis screen is negative. Does the patient have a suspected source of infection? No. Patient's initial sepsis screen is negative. Risk Assessment: Do you want to hurt yourself or someone else? Patient reports no desire to harm self or others. Onset of symptoms is unknown. 21:31 Method Of Arrival: EMS ad5 21:31 Acuity: DARLYN 3 ad5 Triage Assessment: 21:35 General: Appears distressed, unkempt, Behavior is cooperative, anxious, restless. Pain: ad5 Denies pain. EENT: No deficits noted. No signs and/or symptoms were reported regarding the EENT system. Neuro: No deficits noted. Level of Consciousness is awake, alert, obeys commands, Oriented to person, place, time, situation, Appropriate for age Ramp Boss are equal bilaterally Moves all extremities. Speech is normal, Facial symmetry appears normal, Pupils are PERRLA, Intact. Cardiovascular: No deficits noted. Heart tones present Capillary refill < 3 seconds JVD is absent Patient's skin is warm and dry. Rhythm is regular. Respiratory: No deficits noted. Airway is patent Respiratory effort is even, unlabored, Respiratory pattern is regular, symmetrical, Breath sounds are clear bilaterally. GI: No deficits noted. No signs and/or symptoms were reported involving the gastrointestinal system. : No deficits noted. No signs and/or symptoms were reported regarding the genitourinary system. Derm: well healing surgical site noted to frontal scalp, royal remain in place. Musculoskeletal: No deficits noted. No signs and/or symptoms reported regarding the musculoskeletal system. 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 - Social history:: Smoking status: unknown. - Family history:: not pertinent. Screenin:37 Abuse screen: Denies threats or abuse. Denies injuries from another. Nutritional ad5 screening: No deficits noted. Tuberculosis screening: No symptoms or risk factors identified. Fall Risk No fall in past 12 months (0 pts). Secondary diagnosis (15 points) IV access (20 points). Ambulatory Aid- None/Bed Rest/Nurse Assist (0 pts). Gait- Normal/Bed Rest/Wheelchair (0 pts) Mental Status- Oriented to own ability (0 pts). Total Green Fall Scale indicates Low Risk Score (25-44 pts). Fall prevention measures have been instituted. Side Rails Up X 2 Frequent Obs/Assesments occuring As available Patient and Family Educated on Fall Prevention Program and strategies. Assessment: 21:37 Reassessment: See triage assessment for further charting. ad5 22:24 Reassessment: Patient appears in no apparent distress at this time. No changes from ad5 previously documented assessment. Patient and/or family updated on plan of care and expected duration. Pain level reassessed. Patient is alert, oriented x 3, equal unlabored respirations, skin warm/dry/pink. 22:40 Reassessment: Pt tearful and yelling in stretcher, this RN at bedside. Pt states "my ad5 boyfriend doesn't want to be with me anymore and I don't have anywhere to live". Pt reassured of safety, reoriented to plan of care. MD informed of pt concerns. VS remain stable. 23:30 Reassessment: Patient appears in no apparent distress at this time. Pt resting ad5 comfortably in stretcher with eyes closed, arousable to tactile stimuli. Resp even/unlabored. Bed remains low and locked, bedrails up, call light within reach. VSS. NAD noted, will continue to monitor. 11/22 00:22 Reassessment: Poison Control notified of pt elevated dilantin level, recommendations ad5 received and reported to provider. Pt remains in room, resting comfortably in stretcher, resp with ease. NAD noted, will continue to monitor. Vital Signs: 11/21 21:31 BP 156 / 105; Pulse 107; Resp 18 S; Temp 100.0; Pulse Ox 99% on R/A; Weight 70.31 kg; ad5 Height 5 ft. 3 in. (160.02 cm); Pain 0/10; 22:24 BP 121 / 73; Pulse 99; Resp 16 S; Pulse Ox 99% on R/A; ad5 23:30 BP 111 / 78; Pulse 95; Resp 16 S; Pulse Ox 97% on R/A; ad5 11/22 00:23 BP 111 / 74; Pulse 99; Resp 16 S; Pulse Ox 96% on R/A; Pain 0/10; ad5 11/21 21:31 Body Mass Index 27.46 (70.31 kg, 160.02 cm) ad5 ED Course: 11/21 21:25 Inserted saline lock: 20 gauge in right antecubital area, using aseptic technique. jb4 Blood collected. 21:28 Patient arrived in ED. jb4 21:31 Tarun Bland is Primary Nurse. ad5 21:34 Triage completed. ad5 21:38 Patient has correct armband on for positive identification. Placed in gown. Bed in low ad5 position. Call light in reach. Side rails up X2. groundwater monitoring technician on. Pulse ox on. NIBP on. Door closed. Noise minimized. Warm blanket given. Head of bed elevated. 21:43 Steve Lawrence MD is Attending Physician. issac 22:00 CT Head Brain wo Cont Sent. ad5 22:01 CT Head Brain wo Cont In Process Unspecified. EDMS 22:49 Chest Single View XRAY In Process Unspecified. EDMS 23:28 Jaime Rodgers DO is Hospitalizing Provider. issac 11/22 00:33 No provider procedures requiring assistance completed. Patient admitted, IV remains in ad5 place. Administered Medications: 11/21 21:55 Drug: NS 0.9% 1000 ml Route: IV; Rate: 1 bolus; Site: right forearm; ad5 11/22 00:29 Follow up: IV Status: Completed infusion; IV Intake: 1000ml ad5 11/21 22:50 Drug: Ativan (LORazepam) 1 mg Route: IVP; Site: right forearm; ad5 11/22 00:29 Follow up: Response: No adverse reaction; Anxiety decreased ad5 00:29 Not Given (s/s improved): Ativan (LORazepam) 1 mg IVP once ad5 00:29 Not Given (Patient Refused): Potassium Effervescent Tablet 25 mEq PO once; dissolve in ad5 4 ounces of water or juice Intake: 00:29 IV: 1000ml; Total: 1000ml. ad5 Outcome: 11/21 23:31 Decision to Hospitalize by Provider. issac 11/22 00:34 Admitted to Med/surg via stretcher, Report called to CLAUDIA Paulino ad5 Condition: stable Instructed on the need for admit, Demonstrated understanding of instructions. 01:25 Patient left the ED. jb4 Signatures: Dispatcher [employer] EDSteve Russell MD MD cha Bryson, James, RN RN jb4 Tarun Bland ad5
[2020-11-22] MEDS ORDERED: NA CHLORIDE 0.9% 1,000 ML ONE (00:58)
[2020-11-22] MEDS ORDERED: ONDANSETRON 4 MG/2 ML VIAL IV PRN (01:37)
[2020-11-22] MEDS: NA CHLORIDE 0.9% 1,000 ML IV SCH ×2 (01:41→12:37)
[2020-11-22 02:15] VITALS: BMI 27.4
--- NOTE | 2020-11-22 02:16 | P.HP ---
Certification for Inpatient Patient admitted to: Observation With expected LOS: <2 Midnights Patient will require the following post-hospital care: None Practitioner: I am a practitioner with admitting privileges, knowledge of patient current condition, hospital course, and medical plan of care. Services: Services provided to patient in accordance with Admission requirements found in Title 42 Section 412.3 of the Code of Federal Regulations Patient History Date of Service: 11/22/20 Primary Care Provider: Unknown Reason for admission: Phenytoin toxicity History of Present Illness: 30-year-old female with history of partial complex seizures, anxiety/depression presents emergency department with feelings of altered mental status, anxiety. Patient reports not feeling right and very anxious. Patient evaluated in the emergency department, labs significant for potassium 3.4, glucose 121 phenytoin level 32.7 chest x-ray and CT head negative. Patient had vagal nerve stimulator place approximately 1 month prior, wound to scalp appears to be healing well. At time of my exam patient was very lethargic, not answe ring questions as she did receive 1 mg of Ativan for partial complex seizure like activity/anxiety attack. ED provider wishes to admit under observation for phenytoin toxicity. Allergies No Known Drug Allergies Allergy (Verified 11/22/20 01:35) Unknown Home Medications: Phenytoin Sodium Extended [Dilantin] 200 mg PO Q12H #60 capsule 10/20/20 - Past Medical/Surgical History Has patient received pneumonia vaccine in the past: No Diabetic: No -: Complex Partial Seizures -: Anemia -: Depression -: Neck surgery -: Brain Surgery this October 2020 Psychosocial/ Personal History: Lives with boyfriend - Family History Mother -: Diabetes Father Notes: paternal grandmother - MS, seizures - Social History Smoking Status: Never smoker Alcohol use: No CD- Drugs: No Caffeine use: No Place of Residence: Home Review of Systems is unable to be obtained Physical Examination - Vital Signs Temperature: 100.0 F Blood Pressure: 111/74 Pulse: 99 Respirations: 16 - Physical Exam General: Other (Patient extremely lethargic, groans to verbal stimulus) HEENT: Atraumatic, Normocephalic, Mucous membr. moist/pink Neck: Supple Respiratory: Clear to auscultation bilaterally, Normal air movement Cardiovascular: No edema, Normal S1 S2 Gastrointestinal: Normal bowel sounds, No tenderness Musculoskeletal: No contractures, No erythema, No tenderness Integumentary: No significant lesion, No warmth Neurological: Other (Patient currently extremely lethargic, gross to verbal stimulus, is moving all 4 extremities.) - Studies Laboratory Data (last 24 hrs) 11/21/20 21:25: PT 12.2, INR 1.06, APTT 26.1 11/21/20 21:25: WBC 8.60, Hgb 11.3 L, Hct 33.0 L, Plt Count 343 11/21/20 21:25: Sodium 139, Potassium 3.4 L, BUN 5 L, Creatinine 0.59, Glucose 121 H, Total Bilirubin 0.3, AST 15, ALT 18, Alkaline Phosphatase 92 Microbiology Data (last 24 hrs): 11/21/20 22:48 Throat Group A Streptococcus Rapid Screen - Final 11/21/20 22:48 Nasopharnyx Influenza Type A Antigen Screen - Final 11/21/20 22:48 Nasopharnyx Influenza Type B Antigen Screen - Final Assessment and Plan - Plan Assessment Altered mental status secondary to phenytoin toxicity in combination with benzodiazepines with history of seizure disorder and recent deep brain stimulation device placement Normocytic Anemia Anxiety/depression Plan Altered mental status secondary to phenytoin toxicity in combination with benzodiazepines with history of seizure disorder and recent deep brain stimulation device placement: Hold phenytoin, neurology consulted for additional assistance. Will trend phenytoin levels. Prior to receiving Ativan patient did not have significant demonstrable toxicity symptoms, gait difficulty , nystagmus, I was unable to evaluate during my assessment due to patient's mental status after receiving a mg of Ativan for anxiety/partial complex seizure. Will monitor on telemetry, continue with IV fluids. DVT prophylaxis Lovenox 40 mg subcutaneous once daily. If patient mental status improves and phenytoin level trending down possible discharge as early as tomorrow. Normocytic Anemia: Chronic, stable. Anxiety/depression: Continue home medications as appropriate. Discharge Plan: Home Plan to discharge in: 24 Hours - Advance Directives Does patient have a Living Will: No Does patient have a Durable POA for Healthcare: No - Code Status/Comfort Care Code Status Assessed: Yes (Full code) Critical Care: No Time Spent Managing Pts Care (In Minutes): 55
[2020-11-22 06:01] LABS: Absolute Lymphocytes (CBC) 2.2 K/uL (0.7-4.9); Basophils % 1.2 % (0-1.3); Hematocrit 29.1 % (36.0-45.0); Lymphocytes % 31.8 % (15.3-44.8); MPV 7.8 fL (7.6-11.3); RBC Red Blood Cell Count 3.51 M/uL (3.86-4.86)
[2020-11-22 06:25] LABS: ALT/SGPT 16 U/L (12-78); AST/SGOT 12 U/L (15-37); Albumin 3.2 g/dL (3.4-5.0); Alkaline Phosphatase 73 U/L (45-117); BUN Blood Urea Nitrogen 4 mg/dL (7-18); Bicarbonate 24 mmol/L (21-32); Bilirubin Total 0.2 mg/dL (0.2-1.0); Glucose Level 92 mg/dL (74-106); Phenytoin (Dilantin) Level 28.4 ug/mL (10.0-20.0); Potassium 3.7 mmol/L (3.5-5.1); Protein, Total 6.2 g/dL (6.4-8.2); Sodium Level 141 mmol/L (136-145)
--- NOTE | 2020-11-22 07:31 | P.PN ---
Subjective Date of Service: 11/22/20 Primary Care Provider: Unknown Chief Complaint: Phenytoin toxicity Subjective: Improving, Doing well Physical Examination - Vital Signs Temperature: 98.2 F Blood Pressure: 117/58 Pulse: 83 Respirations: 16 Pulse Ox (%): 94 - Studies Laboratory Data (last 24 hrs) 11/21/20 21:25: PT 12.2, INR 1.06, APTT 26.1 11/21/20 21:25: WBC 8.60, Hgb 11.3 L, Hct 33.0 L, Plt Count 343 11/21/20 21:25: Sodium 139, Potassium 3.4 L, BUN 5 L, Creatinine 0.59, Glucose 121 H, Total Bilirubin 0.3, AST 15, ALT 18, Alkaline Phosphatase 92 Microbiology Data (last 24 hrs): 11/21/20 22:48 Throat Group A Streptococcus Rapid Screen - Final 11/21/20 22:48 Nasopharnyx Influenza Type A Antigen Screen - Final 11/21/20 22:48 Nasopharnyx Influenza Type B Antigen Screen - Final Assessment & Plan Discharge Plan: Home Plan to discharge in: 24 Hours Physician Review Additional Text: Physical Exam: GENERAL: Slight sedation this morning but alert and appropriate. VITAL SIGNS: Reviewed HEENT: Head is normocephalic and atraumatic. Extraocular muscles are intact. Pupils are equal, round, and reactive to light and accommodation. Nares appeared normal. Mouth is well hydrated and without lesions. Mucous membranes are moist. NECK: Supple. No carotid bruits. No lymphadenopathy or thyromegaly. LUNGS: Clear to auscultation. No crackles or wheezes are heard. HEART: Regular rate and rhythm, no appreciable gallops, rubs, murmurs or extra heart sounds ABDOMEN: Soft, nontender, and nondistended. Positive bowel sounds. No hepatosplenomegaly was noted. EXTREMITIES: Without any cyanosis, clubbing, rash, lesions or peripheral edema. NEUROLOGIC: The patient is oriented to person, place and time. Strength and sensation are grossly intact. Face is symmetric. SKIN: Normal color, turgor and temperature. No ulcerations or rashes noted. Impression: Altered mental status secondary to phenytoin toxicity in combination with benzodiazepines with history of seizure disorder and recent deep brain stimulation device placement Normocytic Anemia Anxiety/depression Plan Altered mental status secondary to phenytoin toxicity in combination with benzodiazepines with history of seizure disorder and recent deep brain stimulation device placement: Continue to hold Dilantin. Patient appears to be back to her baseline. Patient has been under a great deal of stress. She recently had Deep Brain Stimulator Surgery on November 06. She sees Dr. Felix at [facility]. Last seen by Dr. Felix over last month. She was on another seizure medication-Klonopin in the past before starting Dilantin. Dilantin was started in September. Await recommendations by neurology. Will discuss with Neurology for further recommendations.continue DVT prophylaxis. Anticipate the need for adjustments in Dilantin or a change in her medication. Will discuss with neurology for recommendation. Normocytic Anemia: Chronic, stable. Will check iron and B12 studies. Anxiety/depression: Continue home medications as appropriate. Code Status: Full Code DVT prophylaxis: Lovenox Advanced Care Planning-30 minutes: Plan of care for the patient's discharge was discussed in detail with the patient. Patient desires to go home at discharge. Time Spent Managing Pts Care (In Minutes): 55
[2020-11-22] MEDS ORDERED: ENOXAPARIN 40 MG/0.4 ML SQ SCH (09:00)
[2020-11-22] MEDS ORDERED: POTASSIUM CL SA 10 MEQ TAB PO ONE (09:00)
--- NOTE | 2020-11-22 09:38 | RAD REPORT ---
EXAM DESCRIPTION: RAD - Chest Single View - 11/21/2020 10:52 pm CLINICAL HISTORY: COUGH Chest pain. COMPARISON: Chest Single View dated 10/12/2019; Chest Single View dated 08/09/2019; Chest Single View dated 07/03/2019; Chest Single View dated 12/24/2018 FINDINGS: Portable technique limits examination quality. The lungs are grossly clear. The heart is normal in size. No displaced fractures.Stimulator device is noted on the right, obscuring a portion of the right mid lung laterally. IMPRESSION: No acute intrathoracic process suspected.
[2020-11-22 11:23] VITALS: O2SAT 96
[2020-11-22 13:51] LABS: Barbiturates NEGATIVE (NEGATIVE); Benzodiazepines NEGATIVE (NEGATIVE); Cocaine NEGATIVE (NEGATIVE); METHAMPHETAM NEGATIVE (NEGATIVE); Methadone NEGATIVE (NEGATIVE); Opiates NEGATIVE (NEGATIVE); Phencyclidine NEGATIVE (NEGATIVE); THC Cannibis NEGATIVE (NEGATIVE)
[2020-11-22] MEDS ORDERED: NACHLORIDE 0.45% 1,000 ML IV SCH (14:00)
--- NOTE | 2020-11-22 15:39 | RAD REPORT ---
EXAM DESCRIPTION: Head Brain Wo Cont. RadLex: CT HEAD WITHOUT IV CONTRAST CLINICAL HISTORY: HEADACHE. TECHNIQUE: Axial, coronal, and sagittal images through the brain were performed in the absence of in travenous contrast. This exam was performed according to our departmental dose-optimization program w hich includes use of Automated Exposure Control, adjustment of the mA and/or kV according to patient size and/or use of iterative reconstruction technique. COMPARISON: CT head from September 08, 2020. FINDINGS: Interval placement of two metallic probes in place, extending through the left and right f rontal regions, with trace surrounding hypodense changes. There is no intra-axial or extra-axial blee d seen. There is no mass or mass effect. The ventricles are normal in size shape and configuration. T he orbital contents appear unremarkable. Recent midline frontal craniotomy changes. Scalp soft tissue thickening in this region. The visualize d paranasal sinuses and mastoid air cells are patent. No acute fracture is identified. IMPRESSION: 1. No acute intracranial abnormality identified. 2. Recent postoperative changes, as described. Electronically signed by: Nadja Clayton MD 11/21/2020 10:27 PM CDT Due to temporary technical issues with the PACS/Fluency reporting system, reports are being signed by the in house radiologists without review as a courtesy to insure prompt reporting. The interpreting radiologist is fully responsible for the content of the report.
[2020-11-22 16:58] VITALS: BP 125/75; TEMP 98.7
[2020-11-22] MEDS ORDERED: lamoTRIgine 100 MG TAB PO SCH (17:00)
--- NOTE | 2020-11-22 17:56 | P.DS ---
Admission Date: 11/22/20 Discharge Date: 11/22/20 Primary Care Provider: Unknown Disposition: AMA-LEFT AGAINST MEDICAL ADVIC Discharge Condition: GOOD Reason for Admission: Phenytoin toxicity Consultations: Neurology-Dr. German Procedures: COVID: Negative CXR: FINDINGS: Portable technique limits examination quality. The lungs are grossly clear. The heart is normal in size. No displaced fractures.Stimulator device is noted on the right, obscuring a portion of the right mid lung laterally. IMPRESSION: No acute intrathoracic process suspected. CT scan: FINDINGS: Interval placement of two metallic probes in place, extending through the left and right frontal regions, with trace surrounding hypodense changes. There is no intra-axial or extra-axial bleed seen. There is no mass or mass effect. The ventricles are normal in size shape and configuration. The orbital contents appear unremarkable. Recent midline frontal craniotomy changes. Scalp soft tissue thickening in this region. The visualized paranasal sinuses and mastoid air cells are patent. No acute fracture is identified. IMPRESSION: 1. No acute intracranial abnormality identified. 2. Recent postoperative changes, as described. Medical Problem List: Brief History of Present Illness: 30-year-old female with history of partial complex seizures, anxiety/depression presents emergency department with feelings of altered mental status, anxiety. Patient reports not feeling right and very anxious. Patient evaluated in the emergency department, labs significant for potassium 3.4, glucose 121 phenytoin level 32.7 chest x-ray and CT head negative. Patient had vagal nerve stimulator place approximately 1 month prior, wound to scalp appears to be healing well. At time of my exam patient was very lethargic, not answering questions as she did receive 1 mg of Ativan for partial complex seizure like activity/anxiety attack. Patient admitted for further evaluation due to Dilantin toxicity. Hospital Course: Patient presented with altered mental status secondary to Dilantin toxicity in combination with benzodiazepine. Patient with underlying seizure disorder and recent deep brain stimulation device placement. The patient was admitted for observation. Patient was seen and evaluated by Neurology. Neurology recommended to continue to monitor lab closely. Once the Dilantin level was less than 20 then neurology recommended to restart Dilantin at 300 mg every bedtime. Neurology also recommended to add Lamictal 25 mg daily due to her mood instability. Her mood instability with is likely related to her recent stimulator placement an underlying anxiety and depression. During the course of her stay the patient desired to leave against medical advise. Levels were still elevated. I came to address the importance of remaining in the hospital to continue to monitor Dilantin level and until the level was therapeutic or below toxic level. The patient desired to leave against medical advice. Patient was of sound mind and understood the consequences of the potential risk of leaving the hospital. Patient did not describe any evidence of wanting to hurt herself. Patient still desired to leave. This was addressed in detail with the charge nurse present. Risks of leaving including continued elevated Dilantin level without proper monitoring was addressed. After discussion patient left against medical advice. Prior to leaving I did address the importance of follow up with her PCP and Neurology within the next 24-48 hr. Recommend to recheck Dilantin level to ensure that the level was therapeutic and not toxic. Once levels are less than 20 then patient can return back on Dilantin but at a decreased level of 300 mg at bedtime. After adjustment recommend to recheck Dilantin level closely. Patient plans to follow up with her PCP and Neurology. Vital Signs/Physical Exam: Temp Pulse Resp BP Pulse Ox 98.7 F 98 H 18 125/75 99 11/22/20 16:00 11/22/20 16:00 11/22/20 16:00 11/22/20 16:00 11/22/20 16:00 General: Alert, In no apparent distress, Oriented x3, Cooperative HEENT: Atraumatic Neck: Supple Neurological: Other (Patient alert, cooperative. Patient with increase anxiety. No evidence of suicide ideation or self-harm.) Laboratory Data at Discharge: WBC 6.80 K/uL (4.3-10.9) D 11/22/20 05:31 Hgb 9.7 g/dL (12.0-15.0) L 11/22/20 05:31 Hct 29.1 % (36.0-45.0) L 11/22/20 05:31 Plt Count 236 K/uL (152-406) D 11/22/20 05:31 PT 12.2 SECONDS (9.5-12.5) 11/21/20 21:25 INR 1.06 11/21/20 21:25 APTT 26.1 SECONDS (24.3-36.9) 11/21/20 21:25 Sodium 141 mmol/L (136-145) 11/22/20 05:31 Potassium 3.7 mmol/L (3.5-5.1) 11/22/20 05:31 BUN 4 mg/dL (7-18) L 11/22/20 05:31 Creatinine 0.32 mg/dL (0.55-1.3) L 11/22/20 05:31 Glucose 92 mg/dL (74-106) 11/22/20 05:31 Magnesium 2.0 mg/dL (1.8-2.4) 11/22/20 05:31 Total Bilirubin 0.2 mg/dL (0.2-1.0) 11/22/20 05:31 AST 12 U/L (15-37) L 11/22/20 05:31 ALT 16 U/L (12-78) 11/22/20 05:31 Alkaline Phosphatase 73 U/L (45-117) 11/22/20 05:31 Home Medications: Phenytoin Sodium Extended [Dilantin] 200 mg PO Q12H #60 capsule 10/20/20 Physician Discharge Instructions: Patient left against medical advice. Please see note for details including recommendations. Followup: Unknown,U [Primary Care Provider] - Time spent managing pt's care (in minutes): 55
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
[2020-11-23] MEDS ORDERED: FOLIC ACID 1 MG TABLET PO SCH (09:00)
[2020-11-23] MEDS ORDERED: THIAMINE HCL 100 MG TABLET PO SCH (09:00)
== END 2020-11-22 17:59 | disposition left against medical advice (07) | DRG 948 ==
LOC: ER 21:20 → 2ND 11-22 00:16 → OBSVTOIN 11-22 11:56
PROVIDERS: ADMIT Family Medicine; ATTEND Family Medicine
DX: R41.82 Altered mental status, unspecified (principal); G40.209 Localization-related (focal) (partial) symptomatic epilepsy and epileptic syndromes with complex partial seizures, not intractable, without status epilepticus; T42.0X5A Adverse effect of hydantoin derivatives, initial encounter; T42.4X5A Adverse effect of benzodiazepines, initial encounter; Y92.009 Unspecified place in unspecified non-institutional (private) residence as the place of occurrence of the external cause; D64.9 Anemia, unspecified; F41.8 Other specified anxiety disorders; Z53.29 Procedure and treatment not carried out because of patient's decision for other reasons; Z96.82 Presence of neurostimulator; Z20.822 Contact with and (suspected) exposure to COVID-19
CPT/HCPCS: 36415; 70450; 71045; 80048; 80053; 80076; 80185; 80307; 80320; 80329; 83735; 84439; 84443; 85025; 85610; 85730; 87070; 87081; 87086; 87088; 87804; 93005; 96361; 96374; 97161; 99285; G0378; J1650; J7030; U0003

== ENCOUNTER 2020-11-22 20:24 | Emergency (ER) | payer OTHER ==
--- OUTSIDE RECORDS SUMMARY | 2020-11-22 20:31 | XMS REPORT | Continuity of Care Document ---
:[address] [facility] t Address [address] [place] [address] Care Team Providers Name Role Phone Asked, [...] Clinician Unavailable Galina Cruz MD Attending Clinician Sofi Van MD Attending [...] Source Type Number Date Date CIGNACIGNA OPEN [id number] 2019 [place] ACCESS/[id number]/1 2 00:00:00 Baptism /2020-[facility] MEDICAIDUNITEDHEALTHCARE [id number] 2020 [place] STAR 00:00:00 Baptism [id number] 2020-Present HMO Problems Condition Condition Condition Status Onset Resolution Last Treating Co mments Source Name Details Category Date Date Treatment Clinician Date Seizures Seizures Disease Active [place] [facility]06 [facility] st 00 Abdominal Abdominal Disease Active Chandler stoalberta pain pain 1-11 [facility] 00:00: st 00 Epilepsy Epilepsy Disease Active 2019-06 [place] 0 [facility] 00[facility]00: st 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 00:00: st with with 00 generaliza generaliza tion and tion and with with intractabl intractabl e epilepsy e epilepsy Seizure Seizure Disease Active [place] 11-11 [facility]: st 00 Hypokalemi Hypokalemi Disease Active 2016-[address] [facility] [place] Acute Acute Disease Active 2016-[address] [facility] [address] encephalop encephalop 1-30 [facility] kes - athy athy 00:00: Medical 00 [place] Seizure Seizure Disease Active 2016-[address] [facility] [address] disorder disorder 1-30 [facility] [place] Leukocytos Leukocytos Disease Active 2016-[address] is is 1-30 [facility] [place] Less than Less than Disease Active 2016-06 [...] Chandler Piedra Paternal Multiple sclerosis Luz n Baptism grandmother Family member Diabetes [place] Met hodist Family member Hypertension [place] M ethodist Social History Social Habit Start Date Stop Date Quantity Comments Source Exposure to Not sure [place] Metho dist SARS-CoV-2 (event) Tobacco use and 2020-11-08 2020-11-08 Never used Enrique Rai ethodist exposure 00:00:00 00:00:00 Alcohol intake 2020-11-08 2020-11-08 Lifetime Enrique Parks thodist 00:00:00 00:00:00 non-drinker (finding) Sex [birth year] Enrique rodriguezodist 00:00:00 00:00:00 Smoking Status Start Date Stop [...] No acute pain 1{tbl} Q6H Take 1-2 [place] en-codeine 11-09 tablets by Ks kiirllmaude (TYLENOL 00:00: 23:[address] WITH 00 [...] daily for 180 days. ergocalcife 2019-06- No 32184X Q7D Take 1 [place] rol 0-31 [...] 1 [place] complex-vit 11-14- tablet by Ks kirillodi carter 00:00: 23:[address] C-folic 00 [...] ts Source Name Name Tdap 2020-05-02 Completed [place] 00:00:00 Baptism Vital Signs Vital Name Observation Time Observation Value Comments Source Systolic blood 2020-11-09 11:14:22 125 mm[Hg] [place] n Baptism pressure Diastolic blood 2020-11-09 11:14:22 81 mm[Hg] [place] Baptism pressure Heart rate 2020-11-09 11:14:22 100 /min Enrique Piedra Body temperature 2020-11-09 11:14:22 36.89 Melody [place] [facility] Respiratory rate 2020-11-09 11:14:22 18 /min [place] [facility] Oxygen saturation in 2020-11-09 11:14:22 96 /min [...] DIFF IONIZED CALCIUM 2020-11-09 04:21:00 Cristiane Perez odist MAGNESIUM LEVEL 2020-11-09 04:21:00 Cristiane Perez odist PHOSPHORUS LEVEL 2020-11-09 04:21:00 Cristiane Perez ESTIMATED GFR 2020-11-09 04:21:00 Cristiane Perez odist POC GLUCOSE 2020-11-08 20:00:00 CristianMarilee ethodist POC GLUCOSE 2020-11-08 15:40:00 CristianMarilee [place] Cecelia ethodist POC GLUCOSE 2020-11-08 07:52:00 CristianMarilee [place] Cecelia ethodist POC GLUCOSE 2020-11-08 04:25:00 CristianMarilee ethodist HC COMPLETE BLD COUNT 2020-11-08 00:28:00 [...] ethodist CT HEAD WO CONTRAST 2020 03:52:23 KarelJohnathan [place] Baptism Emitseilu POC GLUCOSE 2020 03:31:00 CristianMarilee ethodist HC COMPLETE BLD COUNT 2020 00:17:00 Kendall Daily Baptism W/AUTO DIFF MAGNESIUM LEVEL 2020 00:17:00 KillianAlfreditomayitojosé Enrique Meth odist PHOSPHORUS LEVEL 2020 00:17:00 Killian Kendall Enrique Met hodist IONIZED CALCIUM 2020 00:17:00 Kendall Daily [place] Meth odist BASIC METABOLIC PANEL 2020 00:17:00 Kendall Daily Baptism ESTIMATED GFR 2020 00:17:00 Kendall Daily [place] Meth odist POC GLUCOSE 2020-11-06 23:40:00 CristianMarilee ethodist POC GLUCOSE 2020-11-06 19:27:00 CristianMarilee ponce ethodist POC GLUCOSE 2020-11-06 17:49:[address] HEAD WO CONTRAST 2020-11-06 17:46:00 Odell Wliliamsonist BASIC METABOLIC PANEL 2020-11-06 16:36:00 Odell Williamson HC COMPLETE BLD COUNT 2020-11-06 16:36:00 Odell Williamson W/AUTO DIFF PARTIAL THROMBOPLASTIN 2020-11-06 16:36:00 Odell Williamson TIME (PTT) PROTHROMBIN TIME WITH INR 2020-11-06 16:36:00 Odell Williamson ESTIMATED GFR 2020-11-06 16:36:[address] HEAD WO CONTRAST 2020-11-06 14:56:54 Odell Williamson on Baptism SODIUM LEVEL, SYRINGE 2020-11-06 13:16:00 Cristian, Marilee aguila Baptism ARTERIAL BLOOD GAS 2020-11-06 13:16:00 Cristian, Marilee pinzon Baptism POTASSIUM, SYRINGE 2020-11-06 13:16:00 Cristian, Marilee pinzon Baptism IONIZED CALCIUM, ARTERIAL 2020-11-06 13:16:00 Cristian, Marilee Cruzist HEMOGLOBIN, SYRINGE 2020-11-06 13:16:00 Cristian, Marilee Ladd on Baptism GLUCOSE LEVEL, SYRINGE 2020-11-06 13:16:00 Cristian, Marilee Piedra LACTIC ACID, SYRINGE 2020-11-06 13:16:00 Cristian, Marilee lemus Baptism MAGNESIUM LEVEL 2020-11-06 13:16:00 Cristian, Marilee Rai ethodist ARTERIAL BLOOD GAS, 2020-11-06 12:02:00 Cristian, Marilee [place] Baptism CORRECTED SODIUM LEVEL, SYRINGE 2020-11-06 12:02:00 Cristian, Marilee aguila Baptism POTASSIUM, SYRINGE 2020-11-06 12:02:00 Cristian, Marilee pinzon Baptism HEMOGLOBIN, SYRINGE 2020-11-06 12:02:00 Cristian, Marilee Ladd on Baptism GLUCOSE LEVEL, SYRINGE 2020-11-06 12:02:00 Cristian, Marilee farooq Baptism IONIZED CALCIUM, ARTERIAL 2020-11-06 12:02:00 Cristian, Marilee [place] Baptism MAGNESIUM LEVEL 2020-11-06 12:02:00 Cristian, Marilee Rai ethodist LACTIC ACID LEVEL 2020-11-06 12:02:00 Cristian, Marilee Piedra ARTERIAL LINE 2020-11-06 10:36:20 Lizzeth Pierson Met aleah Prerna CT ANGIOGRAM HEAD W WO 2020-11-06 10:16:00 Mahesh Zamora CONTRAST TX AN ELECTIVE 2020-11-06 08:16:00 Lizzeth Pierson Met aleah ENDOTRACHEAL AIRWAY Prerna IMPLANTATION, DEEP BRAIN 2020-11-06 07:52:00 Cristian, Marilee Piedra STIMULATOR, STAGE ONE BASIC METABOLIC PANEL 2020-11-02 16:09:00 CristianMarilee ponce CBC HEMOGRAM 2020-11-02 16:09:00 Marilee Foster ethodist PARTIAL THROMBOPLASTIN 2020-11-02 16:09:00 Marilee Foster TIME (PTT) PROTHROMBIN TIME WITH INR 2020-11-02 16:09:00 Marilee Foster HEPATIC FUNCTION PANEL 2020-11-02 16:09:00 Arlene Brumfield HCG QUALITATIVE, SERUM 2020-11-02 16:09:00 Arlene Brumfield SCREEN ESTIMATED GFR 2020-11-02 16:09:00 Marilee Foster HEMOGLOBIN A1C 2020-11-02 16:09:00 Arlene Brumfield ECG PRE/POST OP 2020-11-02 15:48:01 Marilee Foster COVID-19 QUALITATIVE PCR 2020-11-02 15:37:00 Marilee Fostre CBC WITH PLATELET AND 2020-10-04 12:36:00 Michelet Godinez DIFFERENTIAL TROPONIN 2020-10-04 12:36:00 Michelet Godinez B NATRIURETIC PEPTIDE 2020-10-04 12:36:00 Michelet Godinez PHENYTOIN LEVEL 2020-10-04 12:36:00 Michelet Godinez HC COMPLETE BLD COUNT 2020-10-04 12:36:00 Poppy Jacobo Baptism W/AUTO DIFF ECG 12-LEAD 2020-10-04 11:22:39 Michelet Godinez COMPREHENSIVE METABOLIC 2020-10-04 11:20:00 Michelet Godinez Baptism PANEL ESTIMATED GFR 2020-10-04 11:20:00 Michelet Godinez HC COMPLETE BLD COUNT 2020-09-13 04:31:00 Rosalie Bailey Baptism W/AUTO DIFF COMPREHENSIVE METABOLIC 2020-09-13 04:31:00 Bailey, Rosalie lemus Baptism PANEL ESTIMATED GFR 2020-09-13 04:31:00 Rosalie Bailey Enrique Meth odist HC COMPLETE BLD COUNT 2020-09-12 05:40:00 Rosalie Bailey Luz n Baptism W/AUTO DIFF COMPREHENSIVE METABOLIC 2020-09-12 04:00:00 Dave Baileywalker lemus Baptism PANEL ESTIMATED GFR 2020-09-12 04:00:00 Dave Baileychita Enrique Meth odist FERRITIN LEVEL 2020-09-11 04:48:00 Ulises Choudhary Meth odist TOTAL IRON BINDING 2020-09-11 04:48:00 Ulises Choudhary [...] BASIC METABOLIC PANEL 2020-06-29 04:00:00 Mila Fitzgerald Baptism MAGNESIUM LEVEL 2020-06-29 04:00:00 Mila Fitzgerald Meth odist PHOSPHORUS LEVEL 2020-06-29 04:00:00 Mila Fitzgerald Met hodist PHENYTOIN LEVEL 2020-06-29 04:00:00 Mila Fitzgerald Meth odist ESTIMATED GFR 2020-06-29 04:00:00 Mila Fitzgerald Meth odist HC COMPLETE BLD COUNT 2020-06-28 05:00:00 Mila Fitzgerald Baptism W/AUTO DIFF BASIC METABOLIC PANEL 2020-06-28 04:00:00 Mila Fitzgerald Baptism MAGNESIUM LEVEL 2020-06-28 04:00:00 Mila Fitzgerald Meth odist PHOSPHORUS LEVEL 2020-06-28 04:00:00 Mila Fitzgerald Met hodist PHENYTOIN LEVEL 2020-06-28 04:00:00 Mila Fitzgerald Meth odist FREE PHENYTOIN LEVEL 2020-06-28 04:00:00 Mila Fitzgerald ESTIMATED GFR 2020-06-28 04:00:00 Mila Fitzgerald Meth odist EEG AWAKE/ASLEEP LESS THAN 2020-06-27 17:27:27 [place] 41 MIN BASIC METABOLIC PANEL 2020-06-27 05:00:00 Mila Fitzgerald Baptism HC COMPLETE BLD COUNT 2020-06-27 05:00:00 Mila Fitzgerald Baptism W/AUTO DIFF MAGNESIUM LEVEL 2020-06-27 05:00:00 Mila Fitzgerald Meth odist PHOSPHORUS LEVEL 2020-06-27 05:00:00 Mila Fitzgerald Met hodist PHENYTOIN LEVEL 2020-06-27 05:00:00 Mila Fitzgerald Meth odist FREE PHENYTOIN LEVEL 2020-06-27 05:00:00 Mila Fitzgerald ESTIMATED GFR 2020-06-27 05:00:00 Mila Fitzgerald Meth oddariano SODIUM LEVEL, URINE, 2020-06-26 21:12:00 Gonzalo Watkins RANDOM Pham OSMOLALITY, URINE 2020-06-26 21:12:00 Roland Gonzalo [place] Me thodist Pham OSMOLALITY, SERUM 2020-06-26 19:10:00 Roland Gonzalo [place] Me thodist Pham HCG QUALITATIVE, URINE 2020-06-26 18:50:00 Gonzalo Watkins on Baptism SCREEN Pham PROTHROMBIN TIME WITH INR 2020-06-26 16:30:00 Mila Fitzgerald Baptism PARTIAL THROMBOPLASTIN 2020-06-26 16:30:00 Mila Fitzgerald on Baptism TIME (PTT) HC COMPLETE BLD COUNT 2020-06-26 [...] PARTIAL THROMBOPLASTIN 2020-06-25 21:00:00 Gonzalo Watkins on Baptism TIME (PTT) Pham B NATRIURETIC PEPTIDE 2020-06-25 21:00:00 Gonzalo Watkins Pham SMEAR REVIEW 2020-06-25 21:00:00 Gonzalo Watkins Meth odist Pham COMPREHENSIVE METABOLIC 2020-06-25 20:12:00 Gonzalo Watkins Baptism PANEL Pham PHENYTOIN LEVEL 2020-06-25 20:12:00 Gonzalo Watkins Meth odist Pham HC COMPLETE BLD COUNT 2020-06-25 11:53:00 Mina Gonzálesist W/AUTO DIFF COMPREHENSIVE METABOLIC 2020-06-25 11:53:00 Mina Gonzáles Baptism PANEL PREALBUMIN LEVEL 2020-06-25 11:53:00 Mina Gonzáles Met hodist MAGNESIUM LEVEL 2020-06-25 11:53:00 Mina Gonzáles Meth odist PHOSPHORUS LEVEL 2020-06-25 11:53:00 Mina Gonzáles Met hodist FREE PHENYTOIN LEVEL 2020-06-25 11:53:00 Mina Gonzáles ESTIMATED GFR 2020-06-25 11:53:00 Mina Gonzáles odist ACHR ABS, TITIN AB, STM 2020-06-25 11:53:00 Mina Gonzáles Baptism ABS RFLX PANEL STRIATED MUSCLE ABS, IGG 2020-06-25 11:53:00 Mina Gonzáles TITER COVID-19 QUALITATIVE PCR 2020-06-25 10:39:00 Mina Gonzáles BASIC METABOLIC PANEL 2020-06-22 14:58:00 Marilee Foster PARTIAL THROMBOPLASTIN 2020-06-22 14:58:00 Marilee Foster TIME (PTT) PROTHROMBIN TIME WITH INR 2020-06-22 14:58:00 Marilee Foster CBC HEMOGRAM 2020-06-22 14:58:00 Marilee Foster ethodi HEMOGLOBIN A1C 2020-06-22 14:58:00 Arlene rBumfield ethodist ESTIMATED GFR 2020-06-22 14:58:[address] ABDOMEN PELVIS W 2020-06-19 01:41:06 Yovany Van Baptism CONTRAST COVID-19 QUALITATIVE PCR 2020-06-19 00:31:00 Yovany Van Baptism HC COMPLETE BLD COUNT 2020-06-19 00:31:00 Yovany Van Baptism W/AUTO DIFF COMPREHENSIVE METABOLIC 2020-06-19 00:31:00 Yovany Van Baptism PANEL LIPASE LEVEL 2020-06-19 00:31:00 Tishinocencia Yovany [place] Me thodist ESTIMATED GFR 2020-06-19 00:31:00 Tishinocencia Yovany Nunez Me thodist URINE CULTURE 2020-06-18 23:56:00 Tishinocencia Yovany Nunez Me thodist URINALYSIS SCREEN AND 2020-06-18 23:56:00 Yovany Van Baptism MICROSCOPY, WITH REFLEX TO CULTURE HCG QUALITATIVE, URINE 2020-06-18 23:56:00 Yovany Van Baptism SCREEN COVID-19 QUALITATIVE PCR 2020-05-02 16:10:00 Daniel Cruzist URINE CULTURE 2020-05-02 15:51:[address] HEAD WO CONTRAST 2020-05-02 15:47:02 Daniel Cruz on Baptism HC COMPLETE BLD COUNT 2020-05-02 15:30:00 Daniel Cruz Baptism W/AUTO DIFF HCG QUALITATIVE, SERUM 2020-05-02 15:30:00 Daniel Cruz Baptism SCREEN BASIC METABOLIC PANEL 2020-05-02 15:30:00 Daniel Cruz Baptism ESTIMATED GFR 2020-05-02 15:30:00 Daniel Cruz M ethodist SMEAR REVIEW 2020-05-02 15:30:00 Daniel Cruz ethodist URINALYSIS SCREEN AND 2020-05-02 15:28:00 Daniel Cruz Baptism MICROSCOPY, WITH REFLEX TO CULTURE POC GLUCOSE 2020-04-06 17:27:00 Freddy Ocasio Meth odist RIBONUCLEIC ANTIBODY (BILINGUAL LEGAL ASSISTANT) 2020-04-06 16:50:00 Ninfa Johnson Aharben DOUBLE-STRANDED DNA 2020-04-06 16:50:00 Ninfa Johnson (DSDNA) ANTIBODIES, Ninfa CRITHIDIA CENTROMERE ANTIBODY 2020-04-06 16:50:00 Ninfa Johnson Aharben POTASSIUM LEVEL 2020-04-05 17:40:00 Reza Avelar Meth odist HOMOCYSTINE, PLASMA 2020-04-05 17:40:00 Reza Avelar EEG AWAKE/DROWSY LESS THAN 2020-04-05 11:03:26 Reza Avelar Baptism 41 MIN HC COMPLETE BLD COUNT 2020-04-05 04:00:00 Caesar Maxwell Baptism W/AUTO DIFF VITAMIN B12 LEVEL 2020-04-05 04:00:00 Reza Avelar Me thodist C-REACTIVE PROTEIN 2020-04-05 04:00:00 Reza Avelar ethodist HOMOCYSTINE, PLASMA 2020-04-05 04:00:00 Reza Avelar RHEUMATOID FACTOR 2020-04-05 04:00:00 Reza Avelar Me thodist THYROID STIMULATING 2020-04-05 04:00:00 Reza Avelar HORMONE T4, FREE 2020-04-05 04:00:00 Reza Avelar odist T3 2020-04-05 04:00:00 Reza Avelar odadriano SYPHILIS TREPONEMA SCREEN 2020-04-05 04:00:00 Reza Avelar WITH RPR CONFIRMATION (REVERSE ALGORITHM) HIV AG/AB COMBINATION 2020-04-05 04:00:00 Reza Avelar Baptism VITAMIN D 25 HYDROXY LEVEL 2020-04-05 04:00:00 Reza Avelar BASIC METABOLIC PANEL 2020-04-05 04:00:00 Caesar Maxwellist FOLATE LEVEL 2020-04-05 04:00:00 Caesar Maxwell Met aleah MAGNESIUM LEVEL 2020-04-05 04:00:00 Caesar Maxwell Met aleah ESTIMATED GFR 2020-04-05 04:00:00 Caesar Maxwell Met hodist COVID-19 QUALITATIVE PCR 2020-04-04 22:52:00 Max Ron Chandrika gatica Baptism CT HEAD WO CONTRAST 2020-04-04 21:17:59 Tank Rontheo Escobar n Baptism CBC HEMOGRAM 2020-04-04 21:00:00 Max Ron Enrique Me thodist SEDIMENTATION RATE 2020-04-04 21:00:00 AsafTanktheo Cruzist URINE CULTURE 2020-04-04 20:52:00 EnricoarmandTanktheo [place]z Me thodist KEPPRA (LEVETIRACETAM) 2020-04-04 20:15:00 Asaf Maxtheo aguila Baptism LEVEL URINALYSIS SCREEN AND 2020-04-04 19:19:00 Max Ron Baptism MICROSCOPY, WITH REFLEX TO CULTURE URINE DRUGS OF ABUSE 2020-04-04 19:19:00 Max Ron on Baptism SCREEN PROLACTIN LEVEL 2020-04-04 19:07:00 Asaf Maxtheo [place] Me thodist ECG 12-LEAD 2020-04-04 19:02:38 Asaf Maxtheo [place]z Me thodist CRITICAL CARE 2020-04-04 18:48:10 Lila Byers Meth odist COMPREHENSIVE METABOLIC 2020-04-04 18:33:00 Asaf Maxtheo farooq Baptism PANEL LACTIC ACID LEVEL, SEPSIS 2020-04-04 18:33:00 Max Ron - NOW AND REPEAT 2X EVERY 3 HOURS MAGNESIUM LEVEL 2020-04-04 18:33:00 Max Ron Me thodist PHOSPHORUS LEVEL 2020-04-04 18:33:00 Max Ron M ethodist ESTIMATED GFR 2020-04-04 18:33:00 Max Ron Me thodist PET BRAIN METABOLIC EVAL 2020-03-30 13:51:58 Richard Huizar POC GLUCOSE 2020-03-30 12:29:00 Richard Huizar Meth odist MRI BRAIN W WO CONTRAST 2020-03-27 13:50:00 Richard Huizar MONITORED VIDEO-EEG 60 HRS 2020-03-15 12:14:01 Richard Huizar kianamingo Baptism 1 MIN-74 HRS MONITORED W VIDEO DAILY 2020-03-15 00:12:21 Gaye Richard Sonja Cruzist MONITORED W VIDEO DAILY 2020-03-14 00:24:17 Richard Huizar Sonja Piedra EEG SETUP 2020-03-13 00:17:20 Richard Huizar Nadege odadriano HC COMPLETE BLD COUNT 2020-03-12 14:18:00 Ulises Choudhary W/AUTO DIFF COMPREHENSIVE METABOLIC 2020-03-12 14:18:00 Ulises Choudhary PANEL ESTIMATED GFR 2020-03-12 14:18:00 Richard Huizar Enrique taveras MAGNESIUM LEVEL 2020-03-12 14:18:00 Richard Huizar Nadgee taveras CT HEAD WO CONTRAST 2020-03-12 13:25:51 Ulises Choudhary COVID-19 QUALITATIVE PCR 2020-03-12 11:53:00 Ulises Choudhary Plan of Care Planned Activity Planned Date Details Comments Source Future Scheduled 2021-01-13 INFLUENZA VACCINE Luz Piedra Test 00:00:00 [code = INFLUENZA VACCINE] Future Scheduled 2010 Screening for Enrique Ks thodist Test 00:00:00 malignant neoplasm of cervix (procedure) [code = 596208012] Future Scheduled 2007-11-08 Hepatitis C Enrique hodist Test 00:00:00 screening (procedure) [code = 274128742] Future Scheduled 2001 COVID-19 VACCINE (1) Chandler Piedra Test 00:00:00 [code = COVID-19 VACCINE (1)] Encounters Start End Encounter Admission Attending Care Care Encounter Source Date/Time Date/Time Type Type Clinicians Facility Department ID 2020-11-15 2020-11-15 Transition ELVIA Damian [id number] 00:00:00 00:00:00 of Care Fanny BRASWELL [id number] [facility] [id number] 2020-11-06 2020-11-09 Inpatient MARILEE FOSTER [facility] [place] 018 [id number] [place] 00:00:00 00:00:00 762 Method i 2020-11-02 2020-11-02 Outpatient MARILEE FOSTER [facility] [id number] [place] 00:00:00 00:00:[address] 2020-10-23 2020-10-23 Transition ELVIA Damian [id number] 00:00:00 00:00:00 of Care Fanny Dotson KEI[place] [id number] [place] [id number] 2020-10-04 2020-10-04 Outpatient RICHARD HUIZAR [facility] [id number] [place] 00:00:00 00:00:00 548 Method i 2020-10-04 2020-10-04 Emergency MOJGAN, [facility] [place] 064 [id number] [place] 00:00:00 00:00:00 POPPY 400 Method i 2020-09-26 2020-09-26 Outpatient MARILEE FOSTER [facility] [id number] [place] 00:00:00 00:00:00 276 Method i 2020-09-19 2020-09-19 Transition ELVIA Damian [id number] 00:00:00 00:00:00 of Care Fanny Dotson KEIKO [id number] [facility] [id number] 2020-09-10 2020-09-13 Inpatient ARYA, [facility] [place] 064 [id number] [place] 00:00:00 00:00:00 ROSALIE [address] 2020-09-04 2020-09-04 Patient SENDY Matos [id number] 00:00:00 00:00:00 Outreach Papo KIM [id number] P[facility] 4.2.7.2.686 DAVE [id number] 2020-07-26 2020-07-26 [facility] Darvin Daily [id number] 09:42:44 23:59:00 Encounter Keiko [id number] [facility] [id number] [id number] 2020-06-25 2020-06-29 Inpatient LEO, [facility]4 [id number] [place] 00:00:00 00:00:00 MIAL [address] 2020-06-25 2020-06-25 Outpatient ROE, [facility] [id number] [place] 00:00:00 00:00:00 RAY [address] 2020-06-25 2020-06-25 Outpatient CHIHARA, [facility] [id number] [place] 00:00:00 00:00:00 RAY [address] 2020-06-22 2020-06-22 Outpatient MARILEE FOSTER [facility] [id number] [place] 00:00:00 00:00:[address] 2020-06-18 2020-06-19 Emergency TOYA, [facility] [place] 064 [id number] [place] 00:00:00 00:00:00 BEAU [address] 2020-05-15 2020-05-15 Outpatient MAIRLEE FOSTER [facility] [id number] [place] 00:00:00 00:00:[address] 2020-05-02 2020-05-02 Emergency ANTHONY, [facility] [place] 064 [id number] [place] 00:00:00 00:00:00 DANIEL [address] 2020-04-26 2020-04-26 Outpatient ISIS HUIZART [facility] [id number] [place] 00:00:00 00:00:[address] 2020-04-04 2020-04-07 Inpatient AHMED, [facility] [place] 064 [id number] [place] 00:00:00 00:00:00 YAHYA [address] 2020-03-30 2020-03-30 Outpatient HUIZAR, RICHARD [facility] [id number] [place] 00:00:00 00:00:[address] 2020-03-27 2020-03-27 Outpatient HUIZAR, RICHARD [facility] [id number] [place] 00:00:00 00:00:[address] 2020-03-12 2020-03-15 Inpatient HUIZAR, RICHARD [facility] [place] 016 [id number] [place] 00:00:00 00:00:[address] 2020-02-16 2020-02-16 Outpatient RICHARD HUIZAR [facility] [id number] [place] 00:00:00 00:00:[address] 2019-11-12 2019-11-15 Inpatient LIANA [facility] [place] 064 [id number] [place] 00:00:00 00:00:00 REID [address] Results Test Description Test Time Test Comments Results Result Comments Source POC glucose 2020-11-08 20:01:28 Test Item Value Reference Range Interpretation Comme nts POC glucose (test code = 169 mg/dL 65-99 H Ope rator Name: Amy Dougherty [id number]) ID: [id number] hartable: [facility] Notified human relations manager Interpretation (test code = Abnormal 37047-0) [place] Head Wo [id number] 04:34:20Hm Interface, Radiology Results 2020 4:37 AM [...] are not significantly changed as detailed above.[id number] [facility] Arterial blood [id number] 13:26:00 Test Item Value Reference Range Interpretation [...] 2708-6) Lab Interpretation Abnormal (test code = 37354-0) [place] MethodistGlucose level, [id number] 13:26:00 Test Item Value Reference Range Interpretation Comments Glucose, syringe (test code = 109 mg/dL 65-99 H 2345-7) Lab Interpretation (test code = Abnormal 81758-8) [place] MethodistHemoglobin, [id number] 13:26:00 Test Item Value Reference Range Interpretation Comments Hemoglobin, syringe (test code = 9.5 g/dL 12.0-16.0 L 718-7) Lab Interpretation (test code = Abnormal 36046-2) [place] MethodistIonized calcium, [id number] 13:26:00 Test Item Value Reference Range Interpretation Comments Ionized calcium, arterial (test 0.98 mmol/L 1.11-1.32 L code = 83769-4) Lab Interpretation (test code = Abnormal 94383-6) [place] MethodistLactic acid, [id number] 13:26:00 Test Item Value Reference Range Interpretation Comments Lactic acid, syringe (test code = 0.8 mmol/L 0.5-2.2 81827-6) Nunez MethodistPotassium, [id number] 13:26:00 Test Item Value Reference Range Interpretation Comments Potassium, syringe (test 3.3 See_Comment L [A utomated message] code = 2007) The system [facility] generated this result transmitted ref erence range: 3.5 - 5. 0 mEq/L. The refe rence range was not u sed to interpret this result as normal/abnor mal. Lab Interpretation (test Abnormal code = 68131-1) Enrique MethodistSodium level, [id number] 13:26:00 Test Item Value Reference Range Interpretation Comments Sodium, syringe (test 138 See_Comment [Auto mated message] The code = 2947-0) system which generated this result tra nsmitted reference range : 135 - 148 mEq/L. The refe rence range was not used to interpret this result as normal/abnormal . [facility] MethodistArterial blood gas, [id number] 12:18:42 Test Item Value Reference Range Interpretation Comments pH, arterial (test code 7.47 7.35-7.45 H = 2744-1) pCO2, arterial (test 29 See_Comment L [Autom ated message] code = 2019-8) The system [facility] generated this result transmitted ref erence range: 35 - 45 mmHg. The reference r greer was not used to interpret this result as normal/abnor mal. pO2, arterial (test code 169 See_Comment H [A utomated message] = 2703-7) The system [facility] generated this result transmitted ref erence range: 80 - 90 mmHg. The reference r greer was not used to interpret this result as normal/abnor mal. Temperature, Celsius 36.5 Degrees C (test code = 8310-5) O2 saturation, arterial 99 % 95-100 (test code = 2708-6) pH, arterial corrected 7.48 (test code = 95850-9) pCO2, arterial corrected 29 mmHg (test code = 79536-8) pO2, arterial corrected 167 mmHg (test code = 93437-2) Base excess, arterial -2 See_Comment [Auto mated message] (test code = 1925-7) The sys tem which generated this result transmitted ref erence range: -2 - 2 m Eq/L. The reference r greer was not used to interpret this result as normal/abnor mal. Lab Interpretation (test Abnormal code = 88583-5) Nunez MethodistArterial [id number] 10:36:20GeorLizzeth parker, [place] ATTENDANT 11/06/2020 10:36 AMArterial line Patient Location: [facility] [...] tolerated the procedure well with no immediate complicationsHouston Methodist [facility] HospitalistCTNila Head W Wo Aayawepl6448-46-43 10:29:00Hm Interface, Radiology Results Incoming - 11/06/2020 10:32 AM CDT EXAMINATION: CT ANGIOGRAM HEAD W WO CONTRASTCOMPARISON: NoneCLINICAL HISTORY: Intraoperative Evaluation with Leksell FrameCOMMENTS: Axial noncontrast and postcontrast CT scan [...] clinical concern, correlation with DSA angiography is recommended.[id number] QetahutklSmsiys9071-52-30 08:16:00GeLizzeht neal CRNA 11/06/2020 10:35 AMAirway Date/Time: 11/06/2020 [...] grade 1view, easy intubation. Lips and teeth unchangedYeaddiss KznlevhbuEIKC-YlD-4 (COVID-19) RNA [Presence] in Respiratory specimen by AYLA with probe gwhmjycug0713-89-22 22:52:46 Test Item Value Reference Range Interpretation Comments SARS-CoV-2 (COVID-19) RNA Not detected Not-Detected [Presence] in Respiratory specimen by AYLA with probe detection (test code = 85631-3) Whether patient is employed in a healthcare setting (test code = 79021-6) Whether the patient has symptoms related to condition of interest (test code = 90851-2) Patient was hospitalized because of this condition (test code = 25400-2) Whether the patient was admitted to intensive care unit (ICU) for condition of interest (test code = 12891-5) Whether patient resides in a congregate care setting (test code = 87433-6) ECG Pre/Post [id number] 18:39:44 Test Item Value Reference Range Interpretation Comments Ventricular rate (test 85 code = 253) Atrial rate (test code 85 = 255) TX interval (test code 154 = 266) QRSD [...] 04-OCT-2020 11:22,-No significant change was found- Enrique Guzman 12 wguv5861-79-19 22:01:49 Test Item Value Reference Range Interpretation Comments Ventricular rate (test 79 code = 253) Atrial rate (test code = 79 255) TX interval (test code = 148 266) QRSD [...] 273) with sinus arrhythmia-Electroni juana Signed By Ambrosio MENDOZA [facility] ([id number]) on 10/04/2020 10:01:47 PM Enrique Bowman kgozmsy3243-39-01 20:20:59 Test Item Value Reference Range Interpretation Comments Urine culture Mixed prem Specimen isolate (test <=10-3 col/cc InformationSp ecimen code = 52098-3) Source: Urin eSpecimen Site: Clean cat Enrique Vernon-CoV-2 (COVID-19) RNA [Presence] in Respiratory specimen by AYLA with probe pmaarnxer2042-84-76 22:42:57 Test Item Value Reference Range Interpretation Comments SARS-CoV-2 (COVID-19) RNA Not detected Not-Detected [Presence] in Respiratory specimen by AYLA with probe detection (test code = 39406-1) XR Chest 1 Vw Xtscfiqp2330-77-25 17:40:12Hm Interface, Radiology Results Incoming - 09/10/2020 5:43 PM CDT SINGLE VIEW CHEST, 09/10/2020linical History: Seizure.Technique: Single, portable AP view chest.Comparison: 11/12/2019Impression:1.Lungs are clear and symmetrically inflated.2.No pleural effusions or pneumothorax.3.Normal heart size and mediastinal contour for technique.4.Normal pulmonary vasculature.5.Intact skeleton.Enrique Lou (routine)2020-06-28 08:27:01VIDEO-EEG RECORDING AWAKE & DROWSY. Date [...] were captured. Jojo Cruz MD ICD-10 Code: T342Vpxwouj MethodistXR Abdomen Acute Inc Xliui3500-43-36 14:14:14Hm Interface, Radiology Results Incoming - 06/26/2020 [...] evident.Bones/Other: Unremarkable.[id number] MethodistVENIPUNC NEED PHYS SKILL,DX OR [id number] 10:40:22Juanita Matthew RN 06/26/2020 10:42 AMMidline Insertion [...] 3 Indication: Poor venous access and known assisted IV therapy Location: Right basilic Device Type: Non-valved Catheter Lumen(s): Single lumen Catheter size: 4 FrMidLine Characteristics: Catheter Brand: [employer] ApartmentsFlo Midline External Catheter Length (cm):0 Internal Catheter Length (cm): 11 Total Catheter Length (cm): 11 Catheter Lot Number: [id number] Catheter Expiration Date: 03/14/2021rocedure details: Landmarks identified: [...] Blood Loss Amount: Less than 20 mLEnrique FmoydgnbbNCPG-NrA-0 (COVID-19) RNA [Presence] in Respiratory specimen by AYLA with probe jlqfszmds7422-98-38 17:34:47 Test Item Value Reference Range Interpretation Comments SARS-CoV-2 (COVID-19) RNA Not detected Not-Detected [Presence] in Respiratory specimen by AYLA with probe detection (test code = 61806-6) SARS-CoV-2 (COVID-19) RNA [Presence] in Respiratory specimen by AYLA with probe funrsadho2751-62-35 06:49:36 Test Item Value Reference Range Interpretation Comments SARS-CoV-2 (COVID-19) RNA Not detected Not-Detected [Presence] in Respiratory specimen by AYLA with probe detection (test code = 81732-0) CT Abdomen Pelvis W Tsbjyfmz5176-62-72 01:50:17Hm Interface, Radiology Results - 06/19/2020 1:53 AM CST EXAMINATION: CT ABDOMEN [...] nondistended.Osseous structures are intact.IMPRESSION:No acute process.Small hiatal hernia.HMRM-MXLSZG0Wintogu HlxyorwqiPVNU-GbO-7 (COVID-19) RNA [Presence] in Respiratory specimen by AYLA with probe bifmkcpyi3714-47-19 22:57:39 Test Item Value Reference Range Interpretation Comments SARS-CoV-2 (COVID-19) RNA Not detected Not-Detected [Presence] in Respiratory specimen by AYLA with probe detection (test code = 62689-6) Epilepsy/Seizure yyolrwdnbj8853-23-84 09:01:11EPILEPSY MONITORING UNIT REPORT Patient Name: Heather [...] left frontal central temporal region. ICD-10 Code: W798Fohvmtp MethodistEpilepsy/Seizure monitoring 2020-04-23 09:00:05EPILEPSY MONITORING UNIT REPORT [...] left frontal central temporal region. ICD-10 Code: D314Ktottub MethodistEpilepsy/Seizure wwqoiuengw6858-54-66 08:55:34 EPILEPSY MONITORING UNIT REPORT Patient Name: [...] left frontal central temporal region. ICD-10 Code: E291Cxaspok MethodistEpilepsy/Seizure monitoring 2020-04-23 08:45:34EPILEPSY MONITORING UNIT REPORT [...] left frontal central temporal region. ICD-10 Code: M120Rxsccxn MethodistEEG (routine)2020-04-05 11:50:53VIDEO-EEG RECORDING AWAKE & ASLEEP. [...] are captured. Jojo Cruz MD ICD-10 Code: J055Jdfijsg ZrcxcygniYCIH-WiX-2 (COVID-19) RNA [Presence] in Respiratory specimen by AYLA with probe wjiffxpyj0709-63-86 04:39:14 Test Item Value Reference Range Interpretation Comments SARS-CoV-2 (COVID-19) RNA Not detected Not-Detected [Presence] in Respiratory specimen by AYLA with probe detection (test code = 86644-0) CRITICAL UYGN8162-88-41 18:48:10BMax gleason MD 04/20/2020 3:37 PMCritical CarePerformed by: Lila ByersAuthorized by: Max Ron MD Critical care provider statement: Critical care time (minutes): 20 Critical care was necessary to treat or prevent imminent or life-threatening deterioration of the following conditions: MANAGER EDUCATION failure or compromise Critical care was time [...] for this patient from another provider.: Hawa NancyistPET Brain Metabolic Qeuo0101-94-85 14:42:07Hm Interface, Radiology Results 03/30/2020 2:45 PM [...] cerebellar hypometabolism suggests a pharmacologic effect.[facility]-[id number] Baptism SARS-CoV-2 (COVID-19) RNA [Presence] in Respiratory specimen by AYLA with probe uimsejsop1601-65-30 19:18:01 Test Item Value Reference Range Interpretation Comments SARS-CoV-2 (COVID-19) RNA Not detected Not-Detected [Presence] in Respiratory specimen by AYLA with probe detection (test code = 32484-4) RPR Grxfdhjrtup7871-61-15 16:47:08 Test Item Value Reference Range Interpretation [...] = 06-14-2020 N Expiration Dt) Thyroid Stimulating Iameeec7231-03-82 06:31:44 Test Item Value Reference Range Interpretation Comments TSH (test code = TSH) 3.830 mIU/mL 0.270-4.200 Lipid Lynkd0907-36-62 06:24:40 Test Item Value Reference Range Interpretation Comments Cholesterol Total 152 mg/dL 0-200 RISK OF HE ART (test code = DISEASEPublishe d by Cholesterol Total) [employer] Laurel lyte Optimal Borderl ine [...] LDL/HDL Ratio=L DL Calc/HDL Chol Urine Drug Ecpeeu1753-24-72 21:53:06 Test Item Value Reference Range Interpretation [...] if desired . Urinalysis with Culture, if rzwnlzzbb6844-15-50 21:40:53 Test Item Value Reference Range Interpretation [...] Indicated Not Indicated Micro Ind?) Comprehensive Metabolic Ilmry5582-17-07 21:34:15 Test Item Value Reference Range Interpretation [...] = A/G 1.6 ratio N Ratio) Alcohol Lnxsm4000-82-19 21:34:15 Test Item Value Reference Range Interpretation Comments Ethanol Level (test <0.00 g/dL 0.00-0.01 Intoxica vandana 0.080 g/dL code = Ethanol or more Level) Ethanol Inst (test <0 N code = Ethanol Inst) Comprehensive Metabolic Fbgjt8068-82-53 21:34:15 Test Item Value Reference Range Interpretation [...] ag e have not been validated by [facility] MDRD study and should be interpreted wit h caution. eGFR R esult Interpretation: eGFR > or = 60 is in the Normal RangeeGF R < 60 may mean kid shannan diseaseeGFR < 1 5 may mean kidney failure Rang es recommended by the National Kidney Foundation, http://nkdep.ni h.gov Comprehensive Metabolic Ggkab6065-65-24 21:34:15 Test Item Value Reference Range Interpretation [...] ag e have not been validated by [facility] MDRD study and should be [...] disease than se rum creatinine alone.This calculation insa es sex and race in to account, if the information is provided. If th e race is not provided, and t he patient is -Yanira n, multiply by 1.2 12. If sex is not provided, and t he patient is fema le, multiply by 0.7 42. Results for pat ients <18 years of ag e have not been validated by [facility] MDRD study and should be interpreted wit h caution. eGFR R esult Interpretation: eGFR > or = 60 is in the Normal RangeeGF R < 60 may mean kid shannan diseaseeGFR < 1 5 may mean kidney failure Rang es recommended by the National Kidney Foundation, http://nkdep.ni h.gov Complete Blood Count with Jqvbdiwjrklw3338-74-20 21:15:24 Test Item Value Reference Range Interpretation [...] code = IPF) 0 % N Automated Nwusxezokbxm1664-22-48 21:15:24 Test Item Value Reference Range Interpretation Comments Neutro Auto (test code = Neutro 54.3 % 36.0-70.0 Auto) Lymph Auto (test code = Lymph Auto) 32.3 % 12.0-44.0 [place] Auto (test code = [place] Auto) 11.1 % 0.0-11.0 H Eos, Auto (test code = Eos, Auto) 1.3 % 0.0-7.0 Basophil Auto (test code = Basophil 0.7 % 0.0-2.0 Auto) Neutro Absolute (test code = Neutro 6.2 x10 1.6-7.4 Absolute) Lymph Absolute (test code = Lymph 3.71 x10 .50-4.60 Absolute) [place] Absolute (test code = [place] 1.28 x10 .00-1.20 H Absolute) Eos Absolute (test code = Eos 0.15 x10 0.00-0.74 Absolute) Baso Absolute (test code = Baso 0.08 x10 0.00-0.21 Absolute) IG Opzfp4025-30-33 21:15:24 Test Item Value Reference Range Interpretation Comments IG (test code = IG) 0.3 % 0.0-5.0 IG Abs (test code = IG Abs) 0 x10 N HCG Qualitative Pmnza7785-97-06 20:45:17 Test Item Value Reference Range Interpretation [...] 72 hours. Lot # (test code = [id number] N Lot #) Expiration Dt (test 2020-12-12 N code = Expiration Dt) Neg Control (test Negative code = Neg Control) Pos Control (test Positive code = Pos Control) Internal QC (test Acceptable code = Internal QC) RPR Qzqjhofrjon0910-93-48 12:07:58 Test Item Value Reference Range Interpretation [...] = 04-14-2020 N Expiration Dt) Thyroid Stimulating Powdcpk2367-83-74 07:59:52 Test Item Value Reference Range Interpretation Comments TSH (test code = TSH) 0.717 mIU/mL 0.270-4.200 Lipid Tkvyu6594-24-05 07:52:46 Test Item Value Reference Range Interpretation Comments Cholesterol Total 141 mg/dL 0-200 RISK OF HE ART (test code = DISEASEPublishe d by Cholesterol Total) [employer] Laurel lyte Optimal Borderl ine [...] LDL/HDL Ratio=L DL Calc/HDL Chol Urine Drug Wdqepz1327-07-59 15:27:40 Test Item Value Reference Range Interpretation [...] matory test if desired . Comprehensive Metabolic Jirpf8946-60-66 15:15:20 Test Item Value Reference Range Interpretation [...] National Kidney Foundation, http://nkdep.ni h.gov Comprehensive Metabolic Zrstv6290-66-73 15:15:20 Test Item Value Reference Range Interpretation [...] A/G 1.9 ratio N Ratio) Comprehensive Metabolic Ucwkt6033-56-97 15:15:20 Test Item Value Reference Range Interpretation [...] ag e have not been validated by [facility] MDRD study and should be interpreted wit h caution. eGFR R esult Interpretation: eGFR > or = 60 is in the Normal RangeeGF R < 60 may mean kid shannan diseaseeGFR < 1 5 may mean kidney failure Rang es recommended by the National Kidney Foundation, http://nkdep.ni h.gov Alcohol Jcedk7792-19-41 15:15:20 Test Item Value Reference Range Interpretation Comments Ethanol Level (test <0.00 g/dL 0.00-0.01 Intoxica vandana 0.080 g/dL code = Ethanol or more Level) Ethanol Inst (test <0 N code = Ethanol Inst) Urinalysis Ykpiaylihdp7781-95-21 15:11:20 Test Item Value Reference Range Interpretation Comments UA WBC (test code = UA WBC) 6-10 0-5 A UA RBC (test code = UA RBC) 0-5 0-5 UA Bacteria (test code = UA Moderate A Bacteria) UA Squam Epithelial (test code = UA TNTC A Squam Epithelial) UA Mucous (test code = UA Mucous) Few A Urinalysis with Microscopic if uwrlcxtpm2913-81-96 14:42:58 Test Item Value Reference Range Interpretation [...] GL_SJM_UA_MICRO _IN D Complete Blood Count with Mwtbucdxgctt4811-72-64 14:37:26 Test Item Value Reference Range Interpretation [...] code = IPF) 0 % N Automated Ijwdlxatmzhw5588-54-36 14:37:26 Test Item Value Reference Range Interpretation Comments Neutro Auto (test code = Neutro 65.8 % 36.0-70.0 Auto) Lymph Auto (test code = Lymph Auto) 25.5 % 12.0-44.0 [place] Auto (test code = [place] Auto) 7.3 % 0.0-11.0 Eos, Auto (test code = Eos, Auto) 0.7 % 0.0-7.0 Basophil Auto (test code = Basophil 0.5 % 0.0-2.0 Auto) Neutro Absolute (test code = Neutro 6.0 x10 1.6-7.4 Absolute) Lymph Absolute (test code = Lymph 2.34 x10 .50-4.60 Absolute) [place] Absolute (test code = [place] .67 x10 .00-1.20 Absolute) Eos Absolute (test code = Eos 0.06 x10 0.00-0.74 Absolute) Baso Absolute (test code = Baso 0.05 x10 0.00-0.21 Absolute) IG Kuqvn5939-96-28 14:37:26 Test Item Value Reference Range Interpretation Comments IG (test code = IG) 0.2 % 0.0-5.0 IG Abs (test code = IG Abs) 0 x10 N HCG Qualitative Ejpvr7849-88-24 14:34:08 Test Item Value Reference Range Interpretation [...] 72 hours. Lot # (test code = [id number] N Lot #) Expiration Dt (test 2020-03-14 N code = Expiration Dt) Neg Control (test Negative code = Neg Control) Pos Control (test Positive code = Pos Control) Internal QC (test Acceptable code = Internal QC) DRUGS OF ABUSE SCREEN [id number] 17:11:00 Test Item Value Reference Range Interpretation [...] = [place]) concentrati on: 300 ng/mL URINALYSIS [id number] 17:08:00 Test Item Value Reference Range Interpretation [...] (test code = MOD NONE BACU) URINALYSIS [id number] 17:00:00 Test Item Value Reference Range Interpretation [...] (test code = NONE BACU) HCG SERUM [id number] 16:52:00 Test Item Value Reference Range Interpretation Comments HCG SERUM QUAL (test code = HCGQL) NEGATIVE NEGATIVE - CT HEAD/BRAIN W/O [id number] 16:51:00 FAX: Theresa Fields MD [place]: St: REG Name: HEATHER HOPE [facility] : 1990 Age/S: 28/F [address] [facility] Unit: [id number] [place]: [place]: [place] [address] Acct: [id number] Dis Date: Status: REG E R PHONE #: [phone] Exam Date: 02/23/2019 1642 FAX #: [phone] Reason: SEIZURE EXAMS: CPT CODE: [id number] CT HEAD/BRAIN W/O CONT 51606 Dictation location: U19. CT HEAD WITHOUT CONTRAST. [...] MD Technologist: HEATHER DICKSON Trnscrd Dt/Tm: 02/23/2019 (0981) t.[email or web address].[email or web address] Orig Print D/T: S: 02/23/2019 (9394 PAGE 1 Signed ReportBASIC METABOLIC [id number] 16:31:00 Test Item Value Reference Range Interpretation [...] CA) 8.8 mg/dl 8.0-10.5 N BASIC METABOLIC [id number] 16:26:00 Test Item Value Reference Range Interpretation [...] code = CA) mg/dl 8.0-10.5 CBC W/AUTO [id number] 16:15:00 Test Item Value Reference Range Interpretation [...] 3-60 N code = VLDL) RAPID PLASMA [id number] 10:31:00 Test Item Value Reference Range Interpretation Comments RAPID PLASMA REAGIN (test code = Nonreactive Nonreactive RPR) GLYCOSYLATED HEMOGLOBIN (HA1C)2018-12-07 10:05:00 Test Item Value Reference Range Interpretation Comments GLYCOSYLATED HEMOGLOBIN (HA1C) 5.8 % TOT HB 4.5-6.2 N (test code = GLYHGB) [id number] 15:31:00 Test Item Value Reference Range Interpretation Comments ACETAMINOPHEN (test < 1 MCG/ML 10-30 L Acetamin ophen is code = ACET) possibly toxic at levels of: 1. m ore than 150 MCG/ML 4 hours post kaylin stion. 2. more than 5 0 MCG/ML 12 hours post ingestion. [id number] 15:31:00 Test Item Value Reference Range Interpretation Comments SALICYLATE (test code = < 3 MG/DL 0-20 N Refe rence Range: BOSSMAN) Analgesic...... ...... ...... < 10 mg /dl Therapeutic.... ...... ...... 15-20 mg /dl Mild Toxicity....... ...... . > 30 mg/dl Severe Toxicity....... ..... > 60 mg/dl UA RFLX [id number] 14:18:00 Test Item Value Reference Range Interpretation [...] Clean Catch (test code = UASPEC) UA [id number] 14:18:00 Test Item Value Reference Range Interpretation Comments UA WBC (test code = WBCU) < 10 #/hpf <10 UA RBC (test code = RBCU) 0-2 #/hpf NONE SEEN A UA BACTERIA (test code = BACU) RARE #/hpf NONE SEEN UA SQUAMOUS CELLS (test code = 0 - 20 #/lpf <100 SQU) UA MUCUS (test code = MUCU) 1+ #/lpf NONE SEEN BASIC METABOLIC [id number] 14:16:00 Test Item Value Reference Range Interpretation [...] 9.4 MG/DL 8.7-10.5 N CA) HEPATIC FUNCTION [id number] 14:16:00 Test Item Value Reference Range Interpretation [...] 50-136 N TOTAL (test code = ALKP) [id number] 14:16:00 Test Item Value Reference Range Interpretation Comments CK (test code = CKT) 87 Units/L 26-192 N [id number] 14:16:00 Test Item Value Reference Range Interpretation Comments ALCOHOL (test code = < 3 MG/DL 0-10 N 0 - 10: Should be ALC) interpreted as NEGATIVE. 11 - 50: None to mild euphoria. 51 - 100: Mild influence on vision and dark adapta tion. > 80: Legal intoxication; D epression of MANAGER EDUCATION; Increasing degr ee of poisoning. > 400: Fatalities repo rted. Results are for medical purposes only a nd not forlegal or emp loyment evaluative purp oses. BASIC METABOLIC [id number] 14:09:00 Test Item Value Reference Range Interpretation [...] 9.4 MG/DL 8.7-10.5 N CA) HEPATIC FUNCTION [id number] 14:09:00 Test Item Value Reference Range Interpretation [...] TOTAL (test Units/L 50-136 code = ALKP) [id number] 14:09:00 Test Item Value Reference Range Interpretation Comments CK (test code = CKT) Units/L 26-192 [id number] 14:09:00 Test Item Value Reference Range Interpretation Comments ALCOHOL (test code = ALC) MG/DL 0-10 LACTIC ACID [id number] 13:50:00 Test Item Value Reference Range Interpretation Comments LACTIC ACID POC 0.97 MMOL/L 0.90-1.70 N Performed by certified (test code = LACTP) ripper operator at [facility] [id number] 13:48:00 Test Item Value Reference Range Interpretation Comments GLUBED (test code = 88 MG/DL 65-99 N Performe d by certified GLUBED) ripper operator at [facility] DRUG OF ABUSE SCREEN [id number] 13:43:00 Test Item Value Reference Interpretation Comments [...] by layton rader methods (i.e., GC/MS) at [facility]. Results of scre en may not be usedin crimi nal justice, job performance or professionalcre dential review, or infa nt custody issues. Negativ e [place] Level ng/ml ------- ----- Cocaine 300 Methamp hetamine (Ecstacy) 500 Cannabinoids (THC) 50 Amphetamine 1000 Barbiturate s 200 Benzodia zepines 200 Opiat es 300 Ph encyclidine (PCP) 25 UR HCG [id number] 13:39:00 Test Item Value Reference Range Interpretation [...] using aquantitative h CG assay. UA RFLX [id number] 13:38:00 Test Item Value Reference Range Interpretation [...] Clean Catch (test code = UASPEC) UA [id number] 13:38:00 Test Item Value Reference Range Interpretation Comments UA WBC (test code = WBCU) #/hpf <10 UA RBC (test code = RBCU) #/hpf NONE SEEN UA SQUAMOUS CELLS (test code = SQU) #/lpf <100 UA RFLX [id number] 13:38:00 Test Item Value Reference Range Interpretation [...] Clean Catch (test code = UASPEC) UA [id number] 13:38:00 Test Item Value Reference Range Interpretation Comments UA WBC (test code = WBCU) #/hpf <10 UA RBC (test code = RBCU) #/hpf NONE SEEN UA SQUAMOUS CELLS (test code = SQU) #/lpf <100 CBC W/AUTO [id number] 13:26:00 Test Item Value Reference Range Interpretation [...] = BA#) 0.05 x10 3/uL 0.0-0.2 N [id number] 19:07:00 Test Item Value Reference Interpretation Comments Range LEVETIRACETAM 28.7 ug/mL 10.0-40.0 This test was developed and (test code = its performance LEVTAM) characteristics determined by [facility]. It has not been cleared orappro froylan by the Food and Drug Administration. Performed At: [address] [id number] ra Larissa MENDOZA Ph:[phone] BASIC METABOLIC [id number] 04:58:00 Test Item Value Reference Range Interpretation [...] code = 8.9 MG/DL 8.7-10.5 N CA) [id number] 04:58:00 Test Item Value Reference Range Interpretation Comments MAGNESIUM (test code = MAG) 1.9 MG/DL 1.8-2.4 N CBC W/AUTO [id number] 04:08:00 Test Item Value Reference Range Interpretation [...] 0.0-0.2 N NRBC#) - MRI BRAIN W/O [id number] 13:51:00 Patient Name: HEATHER HOPE Unit No: [id number] EXAMS: CPT CODE: [id number] MRI BRAIN W/O CONTRAST 60136 Reason: sz INDICATION: Seizure COMPARISON: CT brain, [...] MD Technologist: Andre Self MRI Trscrpt Dt/ (4730)AngeliqueDW6 Orig Print D/T: S: 09/17/2018 (5648) [facility] CntNAME: HEATHER HOPE NOVEMBER [address] PHYS: [place] [address] : 1990 AGE: 27 SEX: F LOC: D.D313 1 PHONE #: [phone] EXAM DATE: 09/17/2018 STATUS: ADM IN FAX #: RAD NO: DC Dt: PAGE 1 Signed [id number] 07:25:00 Test Item Value Reference Range Interpretation Comments PROLACTIN (test code = 24.6 ng/mL 4.8-23.3 H Perfo rmed At: HD PROLAC) [facility] [address] [id number] Sb Man MD Ph:[phone] UA RFLX MICROSCOPIC [id number] 19:02:00 Test Item Value Reference Range Interpretation [...] UACULT) URINE SOURCE: Clean CatchUA RFLX MICROSCOPIC [id number] 18:56:00 Test Item Value Reference Range Interpretation [...] (test code = UACULT) URINE SOURCE: Clean [id number] 15:56:00 Test Item Value Reference Range Interpretation Comments CK (test code = CKT) 34 Units/L 26-192 N BASIC METABOLIC [id number] 12:57:00 Test Item Value Reference Range Interpretation [...] code = 8.6 MG/DL 8.7-10.5 L CA) [id number] 12:57:00 Test Item Value Reference Range Interpretation Comments CK (test code = CKT) 32 Units/L 26-192 N CBC W/AUTO [id number] 12:33:00 Test Item Value Reference Range Interpretation [...] 3/uL 0.0-0.2 N NRBC#) TOTAL IRON BINDING [id number] 05:50:00 Test Item Value Reference Range Interpretation Comments SERUM IRON (test code = IRON) 17 MCG/DL 50-170 L TOTAL IRON BINDING CAPACITY (test 363 MCG/DL 280-400 N code = TIBC) IRON SATURATION (test code = 5 % 15-50 L FESAT) [id number] 05:50:00 Test Item Value Reference Range Interpretation Comments FERRITIN (test code = LULI) 11 NG/ML 3-105 N HEPATIC FUNCTION [id number] 05:32:00 Test Item Value Reference Range Interpretation [...] code = ALKP) - CT HEAD/BRAIN W/O [id number] 20:19:00 Patient Name: HEATHER HOPE Unit No: [id number] EXAMS: CPT CODE: [id number] CT HEAD/BRAIN W/O CONT 53071 Reason: seizure TECHNIQUE: Contiguous 5 mm images [...] Technolog ist: Edel Cade CT Trscrpt Dt/ (2018)Tristan Orig Print D/T: S: 09/14/2018 (2021) CTDI: DLP: [facility] NAME: MELI HOPESSICA November [facility] PHYS: NGA. - Keanu Váz[place] [address] : 1990 AGE: 27 SEX: F LOC: MATT PHONE#: [phone] EXAM DATE: 09/14/2018 STATUS: REG ER FAX #: RAD NO: DC Dt: PAGE 1 Signed Report- XR CHEST 1 [id number] 20:18:00 Patient Name: HEATHER HOPE [facility] Unit No: [id number] EXAMS: CPT CODE: [id number] XR CHEST 1 V 35844 Reason: screen for pneumonia FINDINGS: Single view ofthe chest shows normal heart size and pulmonary vasculature. The lungs are clear bilaterally. There is no focal infiltrate, pleural effusion or pneumothorax. IMPRESSION: No acute cardiopulmonary findings at 2018 Reported and signed by: Lashell Jimenez MD CC: Keanu Vázquez MD; Cristiane Heath Technologist: Edel Cade CT Trscrpt Dt/ (2017)Tristan Orig PrintD/T: S: 09/14/2018 (2020) [facility] NAME: HEATHER HOPE November [facility]ly [facility] PHYS: NGA. - Keanu Váz[place] [id number] : 1990 AGE: 27 SEX: F LOC: MATT PHONE #: [phone] EXAM DATE: 09/14/2018 STATUS: REG ER FAX [...] using aquantitative h CG assay. BASIC METABOLIC [id number] 19:51:00 Test Item Value Reference Range Interpretation [...] 9.3 MG/DL 8.7-10.5 N CA) CBC W/AUTO [id number] 19:46:00 Test Item Value Reference Range Interpretation [...] BA#) 0.05 x10 3/uL 0.0-0.2 N BLOOD [id number] 10:00:00 Test Item Value Reference Range Interpretation Comments CULTURE (BEAKER) (test No growth in 5 days code = 1095) HCG, QUANTITATIVE, [id number] 15:37:00 Test Item Value Reference Range Interpretation Comments GONADOTROPIN, CHORIONIC (HCG) 11206 mIU/mL 0-10 H QUANT (BEAKER) (test code = 649) Non- Females: <10 mIU/mL Females: Gestation Age Reference Range(mIU/mL) 0.2-1 Week 5-50 1-2 Weeks 50-500 2-3 Weeks 100-5,000 3-4Weeks 500-10,000 4-5 Weeks 1,000-50,000 5-6 Weeks 10,000-100,000 6-8 Weeks 15,000-200,000 2-3 Months 10,000-100,000COMPREHENSIVE METABOLIC [id number] 15:10:00 Test Item Value Reference Range Interpretation [...] PATIEN TS. CBC W/PLT COUNT & AUTO [id number] 14:53:00 Test Item Value Reference Range Interpretation [...] (test code = 2801) U/S, , FIRST [id number] 07:52:00Reason for exam:-> Reason for exam:->please include [...] 1 day. An embryonic pole is evident. [place]-rump length measures 0.63 cm, correlating with estimated [...] MDReport Verified Date/Time: 05/17/2017 07:52:37 Reading Location: [address] Consult Reading Room PREGNANCY SCREEN, [id number] 05:28:00 Test Item Value Reference Range Interpretation Comments TEST URINE (BEAKER) (test Positive code = 583) MR, BRAIN, WITHOUT [id number] 18:54:00Reason for exam:->Stroke evaluationFINAL REPORT MRI brain [...] Parra Verified Date/Time: 05/15/2017 18:54:11 Reading Location: [facility] Radiology Reading Room EEG AWAKE AND [id number] 12:08:00Reason for exam:->? nonconvulsive statusDATE OF TEST: 05/15/2017DATE OF REPORT 05/15/2017 ACC: [id number] EE Start time: 1034 Stop time: 1054 ICD-10: R56.9CPT Code: 62147ULWEYHP: 26 y/o woman with epilepsy found down [...] recordings.Marika Smith M.D.Neurophysiology FellowSwathi Harper M.D.Neurophysiology Attending [id number] 04:27:00 Test Item Value Reference Range Interpretation Comments PROCALCITONIN (BEAKER) (test code 0.17 ng/mL <0.05 H = 3036) SEPSIS RISK (ng/mL)Low: 0.05-0.50Intermediate: 0.51-2.00High: >=[id number] 03:15:00 Test Item Value Reference Range Interpretation Comments PHOSPHORUS (BEAKER) (test code = 3.1 mg/dL 2.3-4.7 604) [id number] 03:15:00 Test Item Value Reference Range Interpretation Comments MAGNESIUM (BEAKER) (test code = 1.9 mg/dL 1.6-2.6 627) BASIC METABOLIC [id number] 03:15:00 Test Item Value Reference Range Interpretation [...] code = 380) LACTIC ACID, VENOUS, WHOLE [id number] 03:09:00 Test Item Value Reference Range Interpretation Comments LACTATE BLOOD VENOUS (2) (BEAKER) 0.6 mmol/L 0.5-2.2 (test code = 2872) Effective 10/17/2015: Units/Reference Range ChangeNew: 0.5-2.2 mmol/L Previous: 5-20 mg/dLPROTHROMBIN TIME/[id number] 03:07:00 Test Item Value Reference Range Interpretation [...] = 2801) RAD, CHEST, 1 VIEW, NON [id number] 01:06:00Reason for exam:->possible infectionShould this be performed [...] MDReport Verified Date/Time: 05/15/2017 01:06:06 Reading Location: [address] Reading Room
--- NOTE | 2020-11-23 00:21 | EDPHYS ---
Physician Documentation [facility] Name: Heather Hope Age: 30 yrs Sex: Female : 1990 Arrival Date: 11/22/2020 Time: 20:28 Bed 25 Private MD: ED Physician Steve Lawrence HPI: 11/23 00:18 This 30 yrs old Female presents to ER via Ambulatory with complaints of jr8 Anxiety, left from upstairs ams. 00:18 Patient stated that she was admitted yesterday for dilantin toxicity and anxiety. Had jr8 to leave early today for personal reasons. Came back tonight because she felt anxious . Onset: The symptoms/episode began/occurred acutely, today. Severity of symptoms: At their worst the symptoms were very mild in the emergency department the symptoms have resolved. The patient has experienced similar episodes in the past, several times. The patient has been recently been admitted at [facility]. 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 - Social history:: Smoking status: Patient denies any tobacco usage or history of. ROS: 11/23 00:18 Eyes: Negative for injury, pain, redness, and discharge, ENT: Negative for injury, jr8 pain, and discharge, Neck: Negative for injury, pain, and swelling, Cardiovascular: Negative for chest pain, palpitations, and edema, Respiratory: Negative for shortness of breath, cough, wheezing, and pleuritic chest pain, Abdomen/GI: Negative for abdominal pain, nausea, vomiting, diarrhea, and constipation, Back: Negative for injury and pain, MS/Extremity: Negative for injury and deformity, Skin: Negative for injury, rash, and discoloration, Neuro: Negative for headache, weakness, numbness, tingling, and seizure. Psych: Positive for anxiety, Negative for depression, auditory hallucinations, visual hallucinations, homicidal ideation, suicide gesture, suicidal ideation. Exam: 00:18 Eyes: Pupils equal round and reactive to light, extra-ocular motions intact. Lids and jr8 lashes normal. Conjunctiva and sclera are non-icteric and not injected. Cornea within normal limits. Periorbital areas with no swelling, redness, or edema. ENT: Nares patent. No nasal discharge, no septal abnormalities noted. Tympanic membranes are normal and external auditory canals are clear. Oropharynx with no redness, swelling, or masses, exudates, or evidence of obstruction, uvula midline. Mucous membranes moist. Neck: Trachea midline, no thyromegaly or masses palpated, and no cervical lymphadenopathy. Supple, full range of motion without nuchal rigidity, or vertebral point tenderness. No Meningismus. Cardiovascular: Regular rate and rhythm with a normal S1 and S2. No gallops, murmurs, or rubs. Normal PMI, no JVD. No pulse deficits. Respiratory: Lungs have equal breath sounds bilaterally, clear to auscultation and percussion. No rales, rhonchi or wheezes noted. No increased work of breathing, no retractions or nasal flaring. Abdomen/GI: Soft, non-tender, with normal bowel sounds. No distension or tympany. No guarding or rebound. No evidence of tenderness throughout. Back: No spinal tenderness. No costovertebral tenderness. Full range of motion. Skin: Warm, dry with normal turgor. Normal color with no rashes, no lesions, and no evidence of cellulitis. MS/ Extremity: Pulses equal, no cyanosis. Neurovascular intact. Full, normal range of motion. Neuro: Awake and alert, GCS 15, oriented to person, place, time, and situation. Cranial nerves II-XII grossly intact. Motor strength 5/5 in all extremities. Sensory grossly intact. Cerebellar exam normal. Normal gait. Psych: Awake, alert, with orientation to person, place and time. Behavior, mood, and affect are within normal limits. Vital Signs: 11/22 21:10 BP 144 / 91; Pulse 120; Resp 18 S; Temp 98.6(O); Pulse Ox 100% on R/A; Weight 70.31 kg bb (R); Height 5 ft. 3 in. (160.02 cm) (R); Pain 01/22; 11/23 00:40 BP 128 / 87; Pulse 82; Resp 16; Pulse Ox 99% on R/A; em 11/22 21:10 Body Mass Index 27.46 (70.31 kg, 160.02 cm) bb MDM: 11/22 23:28 Patient medically screened. jr8 11/23 00:18 Data reviewed: vital signs, nurses notes, lab test result(s), and as a result, I will jr8 discharge patient. Data interpreted: Pulse oximetry: on room air is 100 %. Interpretation: normal. Counseling: I had a detailed discussion with the patient and/or guardian regarding: the historical points, exam findings, and any diagnostic results supporting the discharge/admit diagnosis, lab results, the need for outpatient follow up, a psychiatrist, to return to the emergency department if symptoms worsen or persist or if there are any questions or concerns that arise at home. ED course: Discussed with patient that she needs to hold her dilantin dosage one more day. Otherwise needs to f/u with PCP and her psychiatrist . 11/22 23:36 Order name: Dilantin jr8 11/22 23:37 Order name: Phenytoin (Dilantin) Level; Complete Time: 00:16 EDMS Administered Medications: No medications were administered Disposition: 07:12 Co-signature as Attending Physician, Steve Lawrence MD I agree with the assessment and issac plan of care. Disposition: 11/23/20 00:21 Discharged to Home. Impression: Anxiety disorder, unspecified. - Condition is Stable. - Discharge Instructions: Panic Attacks, Generalized Anxiety Disorder, Deep Brain Stimulation Implantation, Care After. - Medication Reconciliation Form, Thank You Letter, Antibiotic Education, Prescription Opioid Use form. - Follow up: Private Physician; When: 1 - 2 days; Reason: Recheck today's complaints, Continuance of care, Re-evaluation by your physician. - Problem is new. - Symptoms have improved. Signatures: Dispatcher [employer] EDMS Steve Lawrence MD MD cha Munoz, Edgar RN RN em Yesenia Lei RN RN bb George Rojas PA PA jr8 Corrections: (The following items were deleted from the chart) 00:51 00:21 11/23/2020 00:21 Discharged to Home. Impression: Anxiety disorder, unspecified. em Condition is Stable. Forms are Medication Reconciliation Form, Thank You Letter, Antibiotic Education, Prescription Opioid Use. Follow up: Private Physician; When: 1 - 2 days; Reason: Recheck today's complaints, Continuance of care, Re-evaluation by your physician. Problem is new. Symptoms have improved. jr8
--- NOTE | 2020-11-23 00:21 | ER ---
Nurse's Notes [facility] Name: Heather Hope Age: 30 yrs Sex: Female : 1990 Arrival Date: 11/22/2020 Time: 20:28 Bed 25 Private MD: Diagnosis: Anxiety disorder, unspecified Presentation: 11/22 21:10 Chief complaint: Patient states: she was here yesterday and admitted but then left AMA bb and now she is back because she is still having a panic attack. Coronavirus screen: At this time, the client does not indicate any symptoms associated with coronavirus-19. Initial Sepsis Screen: Does the patient meet any 2 criteria? No. Patient's initial sepsis screen is negative. Does the patient have a suspected source of infection? No. Patient's initial sepsis screen is negative. Risk Assessment: Do you want to hurt yourself or someone else? Patient reports no desire to harm self or others. Onset of symptoms is unknown. 21:10 Method Of Arrival: Ambulatory bb 21:10 Acuity: DARLYN 4 bb Triage Assessment: 21:13 General: Appears in no apparent distress. Behavior is calm, cooperative. Pain: bb Complains of pain in back. Neuro: Level of Consciousness is awake, alert, obeys commands, Oriented to person, place, time, situation. Cardiovascular: Capillary refill < 3 seconds Patient's skin is warm and dry. Respiratory: Respiratory effort is even, unlabored, Respiratory pattern is regular. GI: No signs and/or symptoms were reported involving the gastrointestinal system. Derm: Skin is pink, warm \T\ dry. Musculoskeletal: Circulation, motion, and sensation intact. 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 - Social history:: Smoking status: Patient denies any tobacco usage or history of. Screenin:56 Abuse screen: Denies threats or abuse. Nutritional screening: No deficits noted. em Tuberculosis screening: No symptoms or risk factors identified. Fall Risk None identified. Assessment: 23:50 General: Appears in no apparent distress. comfortable, Behavior is calm, cooperative, em appropriate for age, Reports anxiety, hx of seizures. Neuro: Level of Consciousness is awake, alert, obeys commands, Oriented to person, place, time, situation. Cardiovascular: Capillary refill < 3 seconds Patient's skin is warm and dry. Rhythm is regular. Respiratory: Airway is patent Respiratory effort is even, unlabored, Respiratory pattern is regular, symmetrical. Derm: Skin is intact, is healthy with good turgor, Skin is pink, warm \T\ dry. Musculoskeletal: Capillary refill < 3 seconds, Range of motion: intact in all extremities. Vital Signs: 21:10 BP 144 / 91; Pulse 120; Resp 18 S; Temp 98.6(O); Pulse Ox 100% on R/A; Weight 70.31 kg bb (R); Height 5 ft. 3 in. (160.02 cm) (R); Pain 01/22; 11/23 00:40 BP 128 / 87; Pulse 82; Resp 16; Pulse Ox 99% on R/A; em 11/22 21:10 Body Mass Index 27.46 (70.31 kg, 160.02 cm) bb ED Course: 11/22 20:28 Patient arrived in ED. es 21:11 Triage completed. bb 21:13 Arm band placed on Patient placed in waiting room, Patient notified of wait time. bb 23:27 George Rojas PA is PHCP. jr8 23:27 Steve Lawrence MD is Attending Physician. jr8 23:28 Rayo Hernandez, RN is Primary Nurse. em 23:56 Patient has correct armband on for positive identification. Call light in reach. em 11/23 00:49 No provider procedures requiring assistance completed. Patient did not have IV access em during this emergency room visit. Administered Medications: No medications were administered Outcome: 00:21 Discharge ordered by . jr8 00:49 Discharged to home ambulatory. em 00:49 Condition: stable 00:49 Discharge instructions given to patient, Instructed on discharge instructions, follow up and referral plans. Demonstrated understanding of instructions, follow-up care. 00:51 Patient left the ED. em Signatures: Carol Berger Edgar, RN RN em Yesenia Lei RN RN bb George Rojas PA PA jr8
[2020-11-23 00:58] VITALS: TEMP 98.6
[2020-11-23 00:59] VITALS: BP 128/87; O2SAT 99
== END 2020-11-23 00:51 | disposition home or self-care (01) ==
LOC: ER 20:24
DX: F41.9 Anxiety disorder, unspecified (principal); F32.9 Major depressive disorder, single episode, unspecified
CPT/HCPCS: 36415; 80185; 99281

== ENCOUNTER 2020-12-24 11:57 | Emergency (ER) | payer OTHER ==
--- OUTSIDE RECORDS SUMMARY | 2020-12-24 12:04 | XMS REPORT | Continuity of Care Document ---
:1990 Author Organization [facility] t Address [address] [id number] Care Team Providers Name Role Phone Asked, Pcp Primary Care Physician Unavailable Gaye MENDOZA Attending Clinician Juancarlos Fu MD Attending Clinician Rickie TAYLOR, A Attending Clinician Unavailable Leeann Foster MD Attending Clinician Elvia Reyes MD Attending Clinician Brissa PROCESS ENG, W. Attending Clinician MD LEEANN FOSTER Attending Clinician Unavailable Niki TAYLOR, Nila Attending Clinician Unavailable Killian Jacobo MD Attending Clinician Rafael CRUZ Attending Clinician Unavailable [...] Source Type Number Date Date CIGNACIGNA OPEN [id number] 2019 [place] ACCESS/[id number] 2 00:00:00 Cheondoism /2020-PresentHMO [facility] MEDICAIDUNITEDHEALTHCARE [id number] 2020 [facility] STAR 00:00:00 Cheondoism [id number] 2020-Present HMO Problems Condition Condition Condition Status Onset Resolution Last Treating Co mments Source Name Details Category Date Date Treatment Clinician Date Seizures Seizures Disease Active [place] [facility] 00 Abdominal Abdominal Disease Active [facility] ston pain pain 06-25 [facility] 00 Epilepsy Epilepsy Disease Active 2019-06 [place] 0 [facility] 00 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 00:00: st with with 00 generaliza generaliza tion and tion and with with intractabl intractabl e epilepsy e epilepsy Seizure Seizure Disease Active [place] 11-11 [facility]: st 00 Hypokalemi Hypokalemi Disease Active 2016-[address] [facility] [place] Acute Acute Disease Active 2016-[address] [facility] encephalop encephalop 1-30 [facility] kes - athy athy 00:00: Medical 00 [place] Seizure Seizure Disease Active 2016-[address] [facility] [address] disorder disorder -30 [facility] 00 [place] Leukocytos Leukocytos Disease Active 2016-[address] is is 30 [facility] 00 [place] Less than Less than Disease Active 2016-[address] [facility] 8 weeks 8 weeks 30 [facility] - gestation gestation 00:00: [facility] jesica of of 00 Center Allergies, [...] Known Problems Chandler Piedra Paternal Multiple sclerosis [place] grandmother Family member Diabetes [place] [facility]ist Family member Hypertension Enrique rodriguezmaude Social History Social Habit Start Date Stop Date Quantity Comments Source Exposure to Unable to assess nErique Piedra SARS-CoV-2 (event) Tobacco use and 2020-11-29 2020-11-29 Never used Enrique rodriguezodist exposure 00:00:00 00:00:00 Alcohol intake 2020-11-29 2020-11-29 Lifetime Enrique royodist 00:00:00 00:00:00 non-drinker (finding) Sex [birth year] Enrique rodriguezodi 00:00:00 00:00:00 Smoking Status Start Date Stop Date Source Never smoker Enrique wood Medications Ordered Filled Start Stop Current Ordering Indication Dosage Frequency Signature Comments Components Source Medication Medication Date Date Medication? Clinician (SIG) Name Name doxycycline 2020- No 100mg Q.5D Take 1 [place] (VIBRAMYCIN 11-09- capsule Meth maude ) 100 MG 00:00: 23:59 ([address] capsule 00 :00 total) by mouth 2 (two) times a day for 7 days. acetaminoph 2020- No acute pain 1{tbl} Q6H Take 1-2 Nunez en-codeine 11-09- tablets by Me mohan (TYLENOL 00:00: 23:[address] WITH 00 [...] daily for 180 days. ergocalcife 2019-06- No [id number] Q7D Take 1 [place] rol 0-31 [...] tablet 00 :00 (two) times a day. 2016-06 Yes 1{tbl} QD Take 1 [facility] [...] Commen ts Source Name Name Tdap 2020-05-02 [facility] 00:00:00 Cheondoism Vital Signs Vital Name Observation Time Observation Value Comments Source Systolic blood 2020-11-29 09:45:00 136 mm[Hg] [place] pressure Diastolic blood 2020-11-29 09:45:00 88 mm[Hg] [place] on Cheondoism pressure Heart rate 2020-11-29 09:45:00 99 /min [place] Che[place]ism Body temperature 2020-11-29 09:45:00 36.67 Melody Sonja Piedra Body height 2020-11-29 09:45:00 160 cm Enrique Piedra Body weight 2020-11-29 09:45:00 70.171 kg Enrique Piedra BMI 2020-11-29 09:45:00 27.40 kg/m2 Enrique Piedra Respiratory rate 2020-11-09 11:14:22 18 /min Sonja Piedra Oxygen saturation in 2020-11-09 11:14:22 96 /min Enrique Piedra Arterial blood by Pulse oximetry Procedures Procedure Date / Time Performing Clinician Source Performed BASIC METABOLIC PANEL 2020-11-09 04:21:00 Cristiane Perez HC COMPLETE BLD COUNT 2020-11-09 04:21:00 Cristiane Perez W/AUTO DIFF IONIZED CALCIUM 2020-11-09 04:21:00 Cristiane Perez odist MAGNESIUM LEVEL 2020-11-09 04:21:00 Cristiane Perez Meth odist PHOSPHORUS LEVEL 2020-11-09 04:21:00 Cristiane Perez Met aleah ESTIMATED GFR 2020-11-09 04:21:00 Cristiane Perez odist POC GLUCOSE 2020-11-08 20:00:00 Marilee Foster ethodist POC GLUCOSE 2020-11-08 15:40:00 Marilee Foster ethodist POC GLUCOSE 2020-11-08 07:52:00 Marilee Foster ethodist POC GLUCOSE 2020-11-08 04:25:00 Marilee Foster ethodist HC COMPLETE BLD COUNT 2020-11-08 00:28:00 Marissa Suggs W/AUTO DIFF Nadeem BASIC METABOLIC PANEL 2020-11-08 00:28:00 Marissa Suggs Nadeem PHOSPHORUS LEVEL 2020-11-08 00:28:00 Marissa Suggs Nadeem MAGNESIUM LEVEL 2020-11-08 00:28:00 Marissa Suggs Nadeem IONIZED CALCIUM 2020-11-08 00:28:00 Marissa Suggs Nadeem ESTIMATED GFR 2020-11-08 00:28:00 Marissa Suggs Nadeem POC GLUCOSE 2020-11-08 00:00:00 Cristian, Marilee Anderson Nunez Cecelia ethodist POC GLUCOSE 2020 20:08:00 Cirstian, Marilee Anderson [facility] ethodist POC GLUCOSE 2020 15:34:00 CristianMarilee Leeann [facility] ethodist POC GLUCOSE 2020 11:44:00 Cristian Marilee Anderson [facility] ethodist POC GLUCOSE 2020 07:51:00 Cristian Marilee Anderson [facility] ethodist CT HEAD WO CONTRAST 2020 03:52:23 Johnathan Vinson Emitseilu POC GLUCOSE 2020 03:31:00 Cristian, Marilee Anderson Nunez Cecelia ethodist HC COMPLETE BLD COUNT 2020 00:17:00 Kendall Daily W/AUTO DIFF MAGNESIUM LEVEL 2020 00:17:00 Kendall Daily odist PHOSPHORUS LEVEL 2020 00:17:00 Kendall Daily IONIZED CALCIUM 2020 00:17:00 Kendall Daily odist BASIC METABOLIC PANEL 2020 00:17:00 Kendall Daily ESTIMATED GFR 2020 00:17:00 Kendall Daily odist POC GLUCOSE 2020-11-06 23:40:00 CristianMarilee Leeann [facility] ethodist POC GLUCOSE 2020-11-06 19:27:00 Cristian, Marilee Rai ethodist POC GLUCOSE 2020-11-06 17:49:00 Cristian, Marilee Nunez Cecelia ethodist CT HEAD WO CONTRAST 2020-11-06 17:46:00 Odell Williamson on Cheondoism BASIC METABOLIC PANEL 2020-11-06 16:36:00 Odell Williamson HC COMPLETE BLD COUNT 2020-11-06 16:36:00 Odell Williamson W/AUTO DIFF PARTIAL THROMBOPLASTIN 2020-11-06 16:36:00 Odell Williamson TIME (PTT) PROTHROMBIN TIME WITH INR 2020-11-06 16:36:00 Odell Williamson ESTIMATED GFR 2020-11-06 16:36:00 Cristian, Marilee Rai ethodist CT HEAD WO CONTRAST 2020-11-06 14:56:54 Odell Williamson on Cheondoism SODIUM LEVEL, SYRINGE 2020-11-06 13:16:00 Cristian, Marilee aguila Cheondoism ARTERIAL BLOOD GAS 2020-11-06 13:16:00 Cristian, aMrilee pinzon Cheondoism POTASSIUM, SYRINGE 2020-11-06 13:16:00 Cristian, Marilee pinzon Cheondoism IONIZED CALCIUM, ARTERIAL 2020-11-06 13:16:00 Cristian, Marilee Piedra HEMOGLOBIN, SYRINGE 2020-11-06 13:16:00 CristianMarilee on Cheondoism GLUCOSE LEVEL, SYRINGE 2020-11-06 13:16:00 Cristian, Marilee farooq Cheondoism LACTIC ACID, SYRINGE 2020-11-06 13:16:00 CristianMarilee Cheondoism MAGNESIUM LEVEL 2020-11-06 13:16:00 Cristian, Marilee Rai ethodist [place] > 1 HOUR 2020-11-06 13:00:00 Johnathan Vinson Meth odist Emitseilu ARTERIAL BLOOD GAS, 2020-11-06 12:02:00 CristianMarilee on Cheondoism CORRECTED SODIUM LEVEL, SYRINGE 2020-11-06 12:02:00 Cristian, Marilee aguila Cheondoism POTASSIUM, SYRINGE 2020-11-06 12:02:00 Cristian, Marilee Escobar n Cheondoism HEMOGLOBIN, SYRINGE 2020-11-06 12:02:00 Cristian, Marilee Ladd on Cheondoism GLUCOSE LEVEL, SYRINGE 2020-11-06 12:02:00 Cristian, Marilee Piedra IONIZED CALCIUM, ARTERIAL 2020-11-06 12:02:00 Cristian, Marilee Piedra MAGNESIUM LEVEL 2020-11-06 12:02:00 Cristian, Marilee Rai ethodist LACTIC ACID LEVEL 2020-11-06 12:02:00 Cristian, Marilee Piedra ARTERIAL LINE 2020-11-06 10:36:20 Lizzeth Pierson Met hodist Pre[facility] CT ANGIOGRAM HEAD W WO 2020-11-06 10:16:00 Mahesh Zamora CONTRAST VT AN ELECTIVE 2020-11-06 08:16:00 Lizzeth Pierson Met hodist ENDOTRACHEAL AIRWAY Prerna IMPLANTATION, DEEP BRAIN 2020-11-06 07:52:00 Marilee Foster STIMULATOR, STAGE ONE BASIC METABOLIC PANEL 2020-11-02 16:09:00 Marilee Foster CBC HEMOGRAM 2020-11-02 16:09:00 Marilee Foster PARTIAL THROMBOPLASTIN 2020-11-02 16:09:00 Marilee Foster TIME (PTT) PROTHROMBIN TIME WITH INR 2020-11-02 16:09:00 Marilee Foster HEPATIC FUNCTION PANEL 2020-11-02 16:09:00 Arlene Brumfield HCG QUALITATIVE, SERUM 2020-11-02 16:09:00 Arlene Brumfield SCREEN ESTIMATED GFR 2020-11-02 16:09:00 Marilee Foster HEMOGLOBIN A1C 2020-11-02 16:09:00 Arlene Brumfield ECG PRE/POST OP 2020-11-02 15:48:01 Marilee Fosterst COVID-19 QUALITATIVE 2020-11-02 15:37:00 Marilee Foster RT-PCR CBC WITH PLATELET AND 2020-10-04 12:36:00 Michelet Godinez DIFFERENTIAL TROPONIN 2020-10-04 12:36:00 Michelet Godinezst B NATRIURETIC PEPTIDE 2020-10-04 12:36:00 Michelet Godinez PHENYTOIN LEVEL 2020-10-04 12:36:00 Michelet Godinez ethodist HC COMPLETE BLD COUNT 2020-10-04 12:36:00 Poppy Jacobo Cheondoism W/AUTO DIFF ECG 12-LEAD 2020-10-04 11:22:39 Michelet Godinez ethodist COMPREHENSIVE METABOLIC 2020-10-04 11:20:00 Michelet Godinez Cheondoism PANEL ESTIMATED GFR 2020-10-04 11:20:00 Michelet Godinez ethodist HC COMPLETE BLD COUNT 2020-09-13 04:31:00 Rosalie Bailey Cheondoism W/AUTO DIFF COMPREHENSIVE METABOLIC 2020-09-13 04:31:00 Rosalie Bailey Cheondoism PANEL ESTIMATED GFR 2020-09-13 04:31:00 Rosalie Bailey Meth odist HC COMPLETE BLD COUNT 2020-09-12 05:40:00 Rosalie Bailey Cheondoism W/AUTO DIFF COMPREHENSIVE METABOLIC 2020-09-12 04:00:00 Rosalie Bailey Cheondoism PANEL ESTIMATED GFR 2020-09-12 04:00:00 Rosalie Bailey Meth odist FERRITIN LEVEL 2020-09-11 04:48:00 Ulises Choudhary odadriano TOTAL IRON BINDING 2020-09-11 04:48:[address] HEAD WO CONTRAST 2020-09-10 21:15:00 Ulises Choudhary XR CHEST 1 VW PORTABLE 2020-09-10 17:39:00 Yovany Van URINE CULTURE 2020-09-10 17:05:00 Alexander Hugo URINALYSIS SCREEN AND 2020-09-10 16:30:00 Tu, Alexander Piedra MICROSCOPY, WITH REFLEX TO CULTURE HCG QUALITATIVE, URINE 2020-09-10 16:30:00 Tu, Alexander Piedra SCREEN COVID-19 QUALITATIVE 2020-09-10 16:24:00 Yovany Van on Cheondoism RT-PCR HC COMPLETE BLD COUNT 2020-09-10 14:59:00 Tu, Alexander Cruzist W/AUTO DIFF COMPREHENSIVE METABOLIC 2020-09-10 14:00:00 Tu, Alexander Piedra PANEL ESTIMATED GFR 2020-09-10 14:00:00 Tu, Alexander Piedra HC COMPLETE BLD COUNT 2020-06-29 05:00:00 Mila Fitzgerald Cheondoism W/AUTO DIFF FREE PHENYTOIN LEVEL 2020-06-29 05:00:00 Mila Fitzgerald BASIC METABOLIC PANEL 2020-06-29 04:00:00 Mila Fitzgerald Cheondoism MAGNESIUM LEVEL 2020-06-29 04:00:00 Mila Fitzgerald Meth odist PHOSPHORUS LEVEL 2020-06-29 04:00:00 Mila Fitzgerald Met hodist PHENYTOIN LEVEL 2020-06-29 04:00:00 Mila Fitzgerald Meth odist ESTIMATED GFR 2020-06-29 04:00:00 Mila Fitzgerald Meth odist HC COMPLETE BLD COUNT 2020-06-28 05:00:00 Mila Fitzgerald Cheondoism W/AUTO DIFF BASIC METABOLIC PANEL 2020-06-28 04:00:00 Mila Fitzgerald Cheondoism MAGNESIUM LEVEL 2020-06-28 04:00:00 Mila Fitzgerald Meth [...] Watkins RANDOM Pham OSMOLALITY, URINE 2020-06-26 21:12:00 Gonzalo Watkins Me thodist Pham OSMOLALITY, SERUM 2020-06-26 19:10:00 Gonzalo Watkins Me thodist Pham HCG QUALITATIVE, URINE 2020-06-26 18:50:00 Gonzalo Watkins on Cheondoism SCREEN Pham PROTHROMBIN TIME WITH INR 2020-06-26 16:30:00 Mila Fitzgerald PARTIAL THROMBOPLASTIN 2020-06-26 16:30:00 Mila Fitzgerald on Cheondoism TIME (PTT) HC COMPLETE BLD COUNT 2020-06-26 [...] TIME WITH INR 2020-06-25 21:00:00 Gonzalo Watkins Cheondoism Pham PARTIAL THROMBOPLASTIN 2020-06-25 21:00:00 Gonzalo Watkins on Cheondoism TIME (PTT) Pham B NATRIURETIC PEPTIDE 2020-06-25 21:00:00 Gonzalo Watkins Pham SMEAR REVIEW 2020-06-25 21:00:00 Gonzalo Watkins odist Pham COMPREHENSIVE METABOLIC 2020-06-25 20:12:00 Gonzalo Watkins Cheondoism PANEL Pham PHENYTOIN LEVEL 2020-06-25 20:12:00 Gonzalo Watkins odist Pham HC COMPLETE BLD COUNT 2020-06-25 11:53:00 Mina Gonzáles W/AUTO DIFF COMPREHENSIVE METABOLIC 2020-06-25 11:53:00 Mina Gonzáles Cheondoism PANEL PREALBUMIN LEVEL 2020-06-25 11:53:00 Mina Gonzáles Met hodist MAGNESIUM LEVEL 2020-06-25 11:53:00 Mina Gonzáles Meth odist PHOSPHORUS LEVEL 2020-06-25 11:53:00 Mina Gonzáles Met hodist FREE PHENYTOIN LEVEL 2020-06-25 11:53:00 Mina Gonzáles ESTIMATED GFR 2020-06-25 11:53:00 Mina Gonzáles odist ACHR ABS, TITIN AB, STM 2020-06-25 11:53:00 Mina Gonzáles ABS RFLX PANEL STRIATED MUSCLE ABS, IGG 2020-06-25 11:53:00 Roe Mnia aguila Cheondoism TITER COVID-19 QUALITATIVE 2020-06-25 10:39:00 Mina Gonzáles RT-PCR BASIC METABOLIC PANEL 2020-06-22 14:58:00 CristianMarilee Cheondoism PARTIAL THROMBOPLASTIN 2020-06-22 14:58:00 CristianMarilee ponce Cheondoism TIME (PTT) PROTHROMBIN TIME WITH INR 2020-06-22 14:58:00 Cristian, Marilee Nunez Cheondoism CBC HEMOGRAM 2020-06-22 14:58:00 Cristian, Marilee Anderson Nunez M ethodist HEMOGLOBIN A1C 2020-06-22 14:58:00 Arlene Brumfield M ethodist ESTIMATED GFR 2020-06-22 14:58:00 Cristian, Marilee Nunez M ethodist CT ABDOMEN PELVIS W 2020-06-19 01:41:06 Yovany Van n Cheondoism CONTRAST COVID-19 QUALITATIVE 2020-06-19 00:31:00 Yovany Van on Cheondoism RT-PCR HC COMPLETE BLD COUNT 2020-06-19 00:31:00 Yovany Van W/AUTO DIFF COMPREHENSIVE METABOLIC 2020-06-19 00:31:00 Yovany Van Cheondoism PANEL LIPASE LEVEL 2020-06-19 00:31:00 Yovany Van Me thodist ESTIMATED GFR 2020-06-19 00:31:00 Yovany Van Me thodist URINE CULTURE 2020-06-18 23:56:00 Yovany Van Me thodist URINALYSIS SCREEN AND 2020-06-18 23:56:00 Yovany Van Cheondoism MICROSCOPY, WITH REFLEX TO CULTURE HCG QUALITATIVE, URINE 2020-06-18 23:56:00 Yovany Van Cheondoism SCREEN COVID-19 QUALITATIVE 2020-05-02 16:10:00 Daniel Cruz Cheondoism RT-PCR URINE CULTURE 2020-05-02 15:51:[address] HEAD WO CONTRAST 2020-05-02 15:47:02 Daniel Cruz on Cheondoism HC COMPLETE BLD COUNT 2020-05-02 15:30:00 CruzTerri arroyoori Martini Chandler aguila Cheondoism W/AUTO DIFF HCG QUALITATIVE, SERUM 2020-05-02 15:30:00 Daniel Cruz Glo Eliot farooq Cheondoism SCREEN BASIC METABOLIC PANEL 2020-05-02 15:30:00 Daniel Cruz Cheondoism ESTIMATED GFR 2020-05-02 15:30:00 CruzDaniel arroyo Glo Rai ethodist SMEAR REVIEW 2020-05-02 15:30:00 CruzTerri arroyoori Rai ethodist URINALYSIS SCREEN AND 2020-05-02 15:28:00 Daniel Cruz Glo Chandler Piedra MICROSCOPY, WITH REFLEX TO CULTURE POC GLUCOSE 2020-04-06 17:27:00 Freddy Ocasio Meth odadriano RIBONUCLEIC ANTIBODY (SALES AND CUSTOMER RELATIONS REP) 2020-04-06 16:50:00 Ninfa Johnson Aharben DOUBLE-STRANDED DNA 2020-04-06 16:50:00 Ninfa Johnson (DSDNA) ANTIBODIES, Ninfa CRITHIDIA CENTROMERE ANTIBODY 2020-04-06 16:50:00 Ninfa Johnson Aharben POTASSIUM LEVEL 2020-04-05 17:40:00 Reza Avelar odadriano HOMOCYSTINE, PLASMA 2020-04-05 17:40:00 Reza Avelar Cheondoism EEG AWAKE/DROWSY LESS THAN 2020-04-05 11:03:26 Reza Avelar Cheondoism 41 MIN HC COMPLETE BLD COUNT 2020-04-05 04:00:00 Caesar Maxwell on Cheondoism W/AUTO DIFF VITAMIN B12 LEVEL 2020-04-05 04:00:00 Reza Avelar Vt thodist C-REACTIVE PROTEIN 2020-04-05 04:00:00 Reza Avelar ethodist HOMOCYSTINE, PLASMA 2020-04-05 04:00:00 Reza Avelar RHEUMATOID FACTOR 2020-04-05 04:00:00 Reza Avelar Me thodist THYROID STIMULATING 2020-04-05 04:00:00 Reza Avelar Cheondoism HORMONE T4, FREE 2020-04-05 04:00:00 Reza Avelar Meth odist T3 2020-04-05 04:00:00 Reza Avelar Meth odist SYPHILIS TREPONEMA SCREEN 2020-04-05 04:00:00 Reza Avelarton Cheondoism WITH RPR CONFIRMATION (REVERSE ALGORITHM) HIV AG/AB COMBINATION 2020-04-05 04:00:00 Reza Avelar Cheondoism VITAMIN D 25 HYDROXY LEVEL 2020-04-05 04:00:00 Reza Avelar BASIC METABOLIC PANEL 2020-04-05 04:00:00 Casear Maxwell on Cheondoism FOLATE LEVEL 2020-04-05 04:00:00 Caesar Maxwell Met hodadriano MAGNESIUM LEVEL 2020-04-05 04:00:00 Caesar Maxwell Met hodist ESTIMATED GFR 2020-04-05 04:00:00 Caesar Maxwell Met hodadriano COVID-19 QUALITATIVE 2020-04-04 22:52:00 Max Ron on Cheondoism RT-PCR CT HEAD WO CONTRAST 2020-04-04 21:17:59 Max Ron Cheondoism CBC HEMOGRAM 2020-04-04 21:00:00 Max Ron Me thodist SEDIMENTATION RATE 2020-04-04 21:00:00 Max Ronist URINE CULTURE 2020-04-04 20:52:00 Max Ron Me thodist KEPPRA (LEVETIRACETAM) 2020-04-04 20:15:00 Max Ron ston Cheondoism LEVEL URINALYSIS SCREEN AND 2020-04-04 19:19:00 Max Ron Cheondoism MICROSCOPY, WITH REFLEX TO CULTURE URINE DRUGS OF ABUSE 2020-04-04 19:19:00 Max Ron on Cheondoism SCREEN PROLACTIN LEVEL 2020-04-04 19:07:00 Max Ron Me thodist ECG 12-LEAD 2020-04-04 19:02:38 Max Ron Vt thodist CRITICAL CARE 2020-04-04 18:48:10 Lila Byers odist COMPREHENSIVE METABOLIC 2020-04-04 18:33:00 Max Ron capri Cheondoism PANEL LACTIC ACID LEVEL, SEPSIS 2020-04-04 18:33:00 Max Ron Enrique Piedra - NOW AND REPEAT 2X EVERY 3 HOURS MAGNESIUM LEVEL 2020-04-04 18:33:00 Max Ron Vt thodist PHOSPHORUS LEVEL 2020-04-04 18:33:00 Max Ron M ethodist ESTIMATED GFR 2020-04-04 18:33:00 Max Ron Vt thodist PET BRAIN METABOLIC EVAL 2020-03-30 13:51:58 HuizarRichard dotson Chandler Piedra POC GLUCOSE 2020-03-30 12:29:00 Richard Huizar Enrique taveras MRI BRAIN W WO CONTRAST 2020-03-27 13:50:00 Richard Huizar MONITORED VIDEO-EEG 60 HRS 2020-03-15 12:14:01 HuizarRichard 1 MIN-74 HRS MONITORED W VIDEO DAILY 2020-03-15 00:12:21 HuizarRichard MONITORED W VIDEO DAILY 2020-03-14 00:24:17 HuizarRichard EEG SETUP 2020-03-13 00:17:20 Richard Huizar Enrique taveras HC COMPLETE BLD COUNT 2020-03-12 14:18:00 Ulises Choudhary W/AUTO DIFF COMPREHENSIVE METABOLIC 2020-03-12 14:18:00 Ulises Choudhary PANEL ESTIMATED GFR 2020-03-12 14:18:00 GayeIsisnina taveras MAGNESIUM LEVEL 2020-03-12 14:18:[address] HEAD WO CONTRAST 2020-03-12 13:25:51 Ulises Choudhary COVID-19 QUALITATIVE 2020-03-12 11:53:00 Ulises Choudhary RT-PCR Plan of Care Planned Activity Planned Date Details Comments Source Future Scheduled 2021-01-13 INFLUENZA VACCINE Luz pinzon Cheondoism Test 00:00:00 [code = INFLUENZA VACCINE] Future Scheduled 2010 Screening for Enrique Parks thodist Test 00:00:00 malignant neoplasm of cervix (procedure) [code = 166370553] Future Scheduled 2007-11-08 Hepatitis C Enrique Warren hodist Test 00:00:00 screening (procedure) [code = 183086737] Future Scheduled 2001 COVID-19 VACCINE (1) Chandler aguila Cheondoism Test 00:00:00 [code = COVID-19 VACCINE (1)] Encounters Start End Encounter Admission Attending Care Care Encounter Source Date/Time Date/Time Type Type Clinicians Facility Department ID 2020-11-29 2020-11-29 Outpatient RICHARD HUIZAR [facility] [id number] [place] 00:00:00 00:00:[address] 2020-11-29 2020-11-29 Outpatient [facility] [id number] [place] 00:00:00 00:00:[address] 2020-11-20 2020-11-20 Telephone Magui David [id number] 00:00:00 00:00:00 ent, Idris Aden [id number] 2020-11-15 2020-11-15 Transition ELVIA Damian [id number] 00:00:00 00:00:00 of Care Fanny ADEN [id number] [facility] [id number] 2020-11-06 2020-11-09 Inpatient MARILEE FOSTER [facility] [id number] [place] 00:00:00 00:00:[address] 2020-11-02 2020-11-02 Outpatient MARILEE FOSTER [facility] [id number] [place] 00:00:00 00:00:[address] 2020-10-23 2020-10-23 Transition ELVIA Damian [id number] 00:00:00 00:00:00 of Care Fanny ADEN [id number] [place] [id number] 2020-10-04 2020-10-04 Outpatient RICHARD HUIZAR [facility] [id number] [place] 00:00:00 00:00:00 548 Method i 2020-10-04 2020-10-04 Emergency MOJGAN, [facility] [id number] [place] 00:00:00 00:00:00 POPPY 400 Method i 2020-09-26 2020-09-26 Outpatient MARILEE FOSTER [facility] [id number] [place] 00:00:00 00:00:00 276 Method i 2020-09-19 2020-09-19 Transition Rickie, ELVIA [id number] 00:00:00 00:00:00 of Care Fanny Dotson KEIKO [id number] [place] [id number] 2020-09-10 2020-09-13 Inpatient ARYA, [facility] [id number] [place] 00:00:00 00:00:00 ROSALIE 937 Method i 2020-09-04 2020-09-04 Patient Carlo HILETY [id number] 00:00:00 00:00:00 Outreach Papo PRIMARY [id number] [facility] [id number] DAVE [id number] 2020-07-26 2020-07-26 [facility] Darvin Daily [id number] 09:42:44 23:59:00 Encounter Keiko [id number] 2020-06-25 2020-06-29 Inpatient LEO, [facility] [id number] [place] 00:00:00 00:00:00 MILA 804 Method i 2020-06-25 2020-06-25 Outpatient CHIANEL, [facility] [id number] [place] 00:00:00 00:00:00 RAY 444 Method i 2020-06-25 2020-06-25 Outpatient ROE, [facility] [id number] [place] 00:00:00 00:00:00 RAY [address] 2020-06-22 2020-06-22 Outpatient MARILEE FOSTER [facility] [id number] [place] 00:00:00 00:00:[address] 2020-06-18 2020-06-19 Emergency TOYA, [facility] [id number] [place] 00:00:00 00:00:00 BEAU [address] 2020-05-15 2020-05-15 Outpatient MARILEE FOSTER [facility] [id number] [place] 00:00:00 00:00:[address] 2020-05-02 2020-05-02 Emergency ANTHONY, [facility] [id number] [place] 00:00:00 00:00:00 DANIEL [address] 2020-04-26 2020-04-26 Outpatient RICHARD HUIZAR [facility] [id number] [place] 00:00:00 00:00:[address] 2020-04-04 2020-04-07 Inpatient NINFA, [facility] [id number] [place] 00:00:00 00:00:00 YAHYA [address] 2020-03-30 2020-03-30 Outpatient GAYE RICHARD [facility] [id number] [place] 00:00:00 00:00:[address] 2020-03-27 2020-03-27 Outpatient ISIS HUIZART [facility] [id number] [place] 00:00:00 00:00:[address] 2020-03-12 2020-03-15 Inpatient HUIZAR, RICHARD [facility] [id number] [place] 00:00:00 00:00:[address] 2020-02-16 2020-02-16 Outpatient GAYE RICHARD [facility] [id number] [place] 00:00:00 00:00:[address] 2019-11-12 2019-11-15 Inpatient ADENWALA, [facility] [id number] [place] 00:00:00 00:00:00 [facility] [address] Results Test Description Test Time Test Comments Results Result Sourc e Comments OR [place] > I Hour 2020-12-10 Interface, [place] 10:23:[address] Incoming - 12/10/2020 10:26 AM CDT EXAMINATI ON: OR [place] > 1 HOURC-arm fluoroscopy was requested in OR. Location: [facility] 3 OR 12 Procedure: DEEP BRAIN STIMULATOR INS Start: 1145 End: 1300 Fluoro Time: 7.83sec mGy: 54.84IMPRESSION:In traoperative fluoroscopic images. 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 Interpretation (test code = Abnormal 99245-8) [place] [facility] [id number] 04:34:20 Interface, Radiology Results Incoming - 2020 4:37 AM CDTFormatting of this note [...] findings are not significantly changed as detailed above.[id number] [facility] Arterial blood [id number] 13:26:00 Test Item Value Reference Range Interpretation [...] 2708-6) Lab Interpretation Abnormal (test code = 72610-6) Enrique MethodistGlucose level, [id number] 13:26:00 Test Item Value Reference Range Interpretation Comments Glucose, syringe (test code = 109 mg/dL 65-99 H 6115-7) Lab Interpretation (test code = Abnormal 00753-5) Enrique MethodistHemoglobin, kensbbn2687-38-08 13:26:00 Test Item Value Reference Range Interpretation Comments Hemoglobin, syringe (test code = 9.5 g/dL 12.0-16.0 L 718-7) Lab Interpretation (test code = Abnormal 40780-5) Enrique MethodistIonized calcium, kbknhsmb0790-49-26 13:26:00 Test Item Value Reference Range Interpretation Comments Ionized calcium, arterial (test 0.98 mmol/L 1.11-1.32 L code = 68877-0) Lab Interpretation (test code = Abnormal 03586-5) Enrique MethodistLactic acid, tzmfjbo1801-80-58 13:26:00 Test Item Value Reference Range Interpretation Comments Lactic acid, syringe (test code = 0.8 mmol/L 0.5-2.2 64120-7) Nunez MethodistPotassium, xnzgisf6920-87-63 13:26:00 Test Item Value Reference Range Interpretation Comments Potassium, syringe (test 3.3 See_Comment L [A utomated message] code = 2007) The system [facility] generated this result transmitted ref erence range: 3.5 - 5. 0 mEq/L. The refe rence range was not u sed to interpret this result as normal/abnor mal. Lab Interpretation (test Abnormal code = 54756-4) Nunez MethodistSodium level, rfabxgc3692-39-83 13:26:00 Test Item Value Reference Range Interpretation Comments Sodium, syringe (test 138 See_Comment [Auto mated message] The code = 2947-0) system which generated this result tra nsmitted reference range : 135 - 148 mEq/L. The refe rence range was not used to interpret this result as normal/abnormal . [place] MethodistArterial blood gas, rmnqoybxs8687-65-24 12:18:42 Test Item Value Reference Range Interpretation Comments pH, arterial (test code 7.47 7.35-7.45 H = 2744-1) pCO2, arterial (test 29 See_Comment L [Autom ated message] code = 2019-8) The system [facility] generated this result transmitted ref erence range: 35 - 45 mmHg. The reference r greer was not used to interpret this result as normal/abnor mal. pO2, arterial (test code 169 See_Comment H [A utomated message] = 2703-7) The system [facility] generated this result transmitted ref erence range: 80 - 90 mmHg. The reference r greer was not used to interpret this result as normal/abnor mal. Temperature, Celsius 36.5 Degrees C (test code = 8310-5) O2 saturation, arterial 99 % 95-100 (test code = 2708-6) pH, arterial corrected 7.48 (test code = 86775-7) pCO2, arterial corrected 29 mmHg (test code = 87289-2) pO2, arterial corrected 167 mmHg (test code = 38006-5) Base excess, arterial -2 See_Comment [Auto mated message] (test code = 1925-7) The sys tem which generated this result transmitted ref erence range: -2 - 2 m Eq/L. The reference r greer was not used to interpret this result as normal/abnor mal. Lab Interpretation (test Abnormal code = 07652-4) [place] MethodistArterial zzal3859-67-09 10:36:20GeLizzeth neal CRNA 11/06/2020 10:36 AMArterial line Patient Location: ORStart [...] tolerated the procedure well with no immediate complicationsSaint Francis Medical Centermingo MethodistCTA Head W Wo Bowklcfb7809-46-88 10:29:00Hm Interface, Radiology Results 11/06/2020 10:32 AM CDT EXAMINATION: CT ANGIOGRAM HEAD W WO CONTRASTCOMPARISON: NoneCLINICAL HISTORY: [facility]: Axial noncontrast and postcontrast CT scan [...] clinical concern, correlation with DSA angiography is recommended.OPC-[id number] QdfmxpgtwNrbwen7854-37-52 08:16:00GeLizzeth neal CRNA 11/06/2020 10:35 AMAirway Date/Time: [...] grade 1view, easy intubation. Lips and teeth unchangedGate City GgleegvqgCGYO-YbL-3 (COVID-19) RNA [Presence] in Respiratory specimen by AYLA with probe egrkxrhat8109-05-22 22:52:46 Test Item Value Reference Range Interpretation Comments SARS-CoV-2 (COVID-19) RNA Not detected Not-Detected [Presence] in Respiratory specimen by AYLA with probe detection (test code = 63503-6) Whether patient is employed in a healthcare setting (test code = 77233-5) Whether the patient has symptoms related to condition of interest (test code = 64492-9) Patient was hospitalized because of this condition (test code = 77666-0) Whether the patient was admitted to intensive care unit (ICU) for condition of interest (test code = 32883-9) Whether patient resides in a congregate care setting (test code = 42021-8) ECG Pre/Post Vg5854-52-74 18:39:44 Test Item Value Reference Range Interpretation Comments Ventricular rate (test 85 code = 253) Atrial rate (test code 85 = 255) VT interval (test code 154 = 266) QRSD [...] significant change was found- Enrique Rosario 12 zhjs7909-06-08 22:01:49 Test Item Value Reference Range Interpretation Comments Ventricular rate (test 79 code = 253) Atrial rate (test code = 79 255) VT interval (test code = 148 266) QRSD [...] MD ([id number]) on 10/04/2020 10:01:47 PM Enrique PiedraUrine sxnjybf4473-07-14 20:20:59 Test Item Value Reference Range Interpretation Comments Urine culture Mixed prem Specimen isolate (test <=10-3 col/cc InformationSp ecimen code = 85624-8) Source: Urin eSpecimen Site: Clean cat tara Nunez CztszuhobVWBE-GcX-3 (COVID-19) RNA [Presence] in Respiratory specimen by AYLA with probe mktvsttfe7985-47-38 22:42:57 Test Item Value Reference Range Interpretation Comments SARS-CoV-2 (COVID-19) RNA Not detected Not-Detected [Presence] in Respiratory specimen by AYLA with probe detection (test code = 37107-3) XR Chest 1 Vw Cpnsfuca4548-81-65 17:40:12Hm Interface, Radiology Results Incoming - 09/10/2020 5:43 PM CDT SINGLE VIEW CHEST, 09/10/2020linical History: Seizure.Technique: Single, portable AP view chest.Comparison: 11/12/2019Impression:1.Lungs are clear and symmetrically inflated.2.No pleural effusions or pneumothorax.3.Normal heart size and mediastinal contour for technique.4.Normal pulmonary vasculature.5.Intact skeleton.[place] MethodistEEG (routine)2020-06-28 08:27:01VIDEO-EEG RECORDING AWAKE & DROWSY. [...] were captured. 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 IV therapy Location: Right basilic Device Type: Non-valved Catheter Lumen(s): Single lumen Catheter size: 4 FrMidLine Characteristics: Catheter Brand: BioFlo Midline External Catheter Length (cm):0 Internal Catheter Length (cm): 11 Total Catheter Length (cm): 11 Catheter Lot Number: [id number] Catheter Expiration Date: 1Procedure details: Landmarks identified: [...] Blood Loss Amount: Less than 20 mLEnrique AkhtarZxxwvvleiUEMU-MuE-8 (COVID-19) RNA [Presence] in Respiratory specimen by AYLA with probe lcggwnsqv6940-42-02 17:34:47 Test Item Value Reference Range Interpretation Comments SARS-CoV-2 (COVID-19) RNA Not detected Not-Detected [Presence] in Respiratory specimen by AYLA with probe detection (test code = 64732-6) SARS-CoV-2 (COVID-19) RNA [Presence] in Respiratory specimen by AYLA with probe peiwbdiwi6052-98-36 06:49:36 Test Item Value Reference Range Interpretation Comments SARS-CoV-2 (COVID-19) RNA Not detected Not-Detected [Presence] in Respiratory specimen by AYLA with probe detection (test code = 67958-3) CT Abdomen Pelvis W Kcjdygyz8388-05-39 01:50:17Hm Interface, Radiology Results 06/19/2020 1:53 AM [...] nondistended.Osseous structures are intact.IMPRESSION:No acute process.Small hiatal hernia.HMRM-OITORL1Pgfbksa TvxduhjvmEPPN-DuQ-9 (COVID-19) RNA [Presence] in Respiratory specimen by AYLA with probe rclraijeu3199-91-23 22:57:39 Test Item Value Reference Range Interpretation Comments SARS-CoV-2 (COVID-19) RNA Not detected Not-Detected [Presence] in Respiratory specimen by AYAL with probe detection (test code = 32865-5) Epilepsy/Seizure xarlizvjcg3379-93-11 09:01:11EPILEPSY MONITORING UNIT REPORT Patient Name: Heather [...] left frontal central temporal region. ICD-10 Code: D147Lwpxqlg MethodistEpilepsy/Seizure monitoring 2020-04-23 09:00:05EPILEPSY MONITORING UNIT REPORT [...] left frontal central temporal region. ICD-10 Code: D388Btoppve MethodistEpilepsy/Seizure zvucxebbsp8935-48-92 08:55:34 EPILEPSY MONITORING UNIT REPORT Patient Name: [...] left frontal central temporal region. ICD-10 Code: K254Lfqxahv MethodistEpilepsy/Seizure monitoring 2020-04-23 08:45:34EPILEPSY MONITORING UNIT REPORT [...] left frontal central temporal region. ICD-10 Code: R799Yqmrgbr MethodistEEG (routine)2020-04-05 11:50:53VIDEO-EEG RECORDING AWAKE & ASLEEP. [...] are captured. Jojo Cruz MD ICD-10 Code: R227Yznylid FozefstbgJOWT-WiN-9 (COVID-19) RNA [Presence] in Respiratory specimen by AYLA with probe tgcxgybmw2521-51-18 04:39:14 Test Item Value Reference Range Interpretation Comments SARS-CoV-2 (COVID-19) RNA Not detected Not-Detected [Presence] in Respiratory specimen by AYLA with probe detection (test code = 49010-9) CRITICAL FHYR1394-05-82 18:48:10BMax gleason MD 04/20/2020 3:37 PMCritical CarePerformed by: Lila ByersAuthorized by: Max Ron MD Critical care provider statement: Critical care time (minutes): 20 Critical care was necessary to treat or prevent imminent or life-threatening deterioration of the following conditions: BASEBALL UMPIRE FOR LITTLE LEAGUE failure or compromise Critical care was time [...] from another provider.: Hawa PiedraPET Brain Metabolic Mpul5943-44-17 14:42:07Hm Interface, Radiology Results - 03/30/2020 2:45 PM CDT PROCEDURE: PET [...] interictal study.2.Diffuse cerebellar hypometabolism suggests a pharmacologic effect.[facility]-4FI5411HM2Emnxuyi Cheondoism SARS-CoV-2 (COVID-19) RNA [Presence] in Respiratory specimen by AYLA with probe gxrzmemxo9714-53-01 19:18:01 Test Item Value Reference Range Interpretation Comments SARS-CoV-2 (COVID-19) RNA Not detected Not-Detected [Presence] in Respiratory specimen by AYLA with probe detection (test code = 98277-9) RPR Ewgpvorksup3851-42-54 16:47:08 Test Item Value Reference Range Interpretation [...] = 06-14-2020 N Expiration Dt) Thyroid Stimulating Pzmudge2232-10-32 06:31:44 Test Item Value Reference Range Interpretation Comments TSH (test code = TSH) 3.830 mIU/mL 0.270-4.200 Lipid Uauay7522-97-47 06:24:40 Test Item Value Reference Range Interpretation Comments Cholesterol Total 152 mg/dL 0-200 RISK OF HE ART (test code = DISEASEPublishe d by Cholesterol Total) [place] [employer] Laurel lyte Optimal Borderl ine [...] LDL/HDL Ratio=L DL Calc/HDL Chol Urine Drug Vfevli0228-76-64 21:53:06 Test Item Value Reference Range Interpretation [...] if desired . Urinalysis with Culture, if fafenbvlp9381-17-16 21:40:53 Test Item Value Reference Range Interpretation [...] Not Indicated Not Indicated Micro Ind?) Alcohol Kdyks2348-09-27 21:34:15 Test Item Value Reference Range Interpretation Comments Ethanol Level (test <0.00 g/dL 0.00-0.01 Intoxica vandana 0.080 g/dL code = Ethanol or more Level) Ethanol Inst (test <0 N code = Ethanol Inst) Comprehensive Metabolic Eykxq0075-29-15 21:34:15 Test Item Value Reference Range Interpretation [...] National Kidney Foundation, http://nkdep.ni h.gov Comprehensive Metabolic Gmoeq9651-78-48 21:34:15 Test Item Value Reference Range Interpretation [...] National Kidney Foundation, http://nkdep.ni h.gov Comprehensive Metabolic Arjjn5131-30-34 21:34:15 Test Item Value Reference Range Interpretation [...] ratio N Ratio) Complete Blood Count with Buakomuuqikc7352-97-02 21:15:24 Test Item Value Reference Range Interpretation [...] code = IPF) 0 % N Automated Ziuryrvcyjnn1104-12-27 21:15:24 Test Item Value Reference Range Interpretation Comments Neutro Auto (test code = Neutro 54.3 % 36.0-70.0 Auto) Lymph Auto (test code = Lymph Auto) 32.3 % 12.0-44.0 [place] Auto (test code = [place] Auto) 11.1 % 0.0-11.0 H Eos, Auto (test code = Eos, Auto) 1.3 % 0.0-7.0 Basophil Auto (test code = Basophil 0.7 % 0.0-2.0 Auto) Neutro Absolute (test code = Neutro 6.2 x10 1.6-7.4 Absolute) Lymph Absolute (test code = Lymph 3.71 x10 .50-4.60 Absolute) [place] Absolute (test code = [place] 1.28 x10 .00-1.20 H Absolute) Eos Absolute (test code = Eos 0.15 x10 0.00-0.74 Absolute) Baso Absolute (test code = Baso 0.08 x10 0.00-0.21 Absolute) IG Yrhob8066-98-21 21:15:24 Test Item Value Reference Range Interpretation Comments IG (test code = IG) 0.3 % 0.0-5.0 IG Abs (test code = IG Abs) 0 x10 N HCG Qualitative Ebbll0752-70-88 20:45:17 Test Item Value Reference Range Interpretation [...] 72 hours. Lot # (test code = [id number] N Lot #) Expiration Dt (test 2020-12-12 N code = Expiration Dt) Neg Control (test Negative code = Neg Control) Pos Control (test Positive code = Pos Control) Internal QC (test Acceptable code = Internal QC) RPR Wlmalycbohm1006-63-26 12:07:58 Test Item Value Reference Range Interpretation [...] = 04-14-2020 N Expiration Dt) Thyroid Stimulating Dnxuawk7553-13-69 07:59:52 Test Item Value Reference Range Interpretation Comments TSH (test code = TSH) 0.717 mIU/mL 0.270-4.200 Lipid Uftew9410-92-57 07:52:46 Test Item Value Reference Range Interpretation Comments Cholesterol Total 141 mg/dL 0-200 RISK OF HE ART (test code = DISEASEPublishe d by Cholesterol Total) [place] [employer] Laurel lyte Optimal Borderl ine [...] LDL/HDL Ratio=L DL Calc/HDL Chol Urine Drug Pofdcb8681-27-79 15:27:40 Test Item Value Reference Range Interpretation [...] matory test if desired . Comprehensive Metabolic Qiakn6597-69-31 15:15:20 Test Item Value Reference Range Interpretation [...] A/G 1.9 ratio N Ratio) Comprehensive Metabolic Ulgmh2117-61-27 15:15:20 Test Item Value Reference Range Interpretation [...] the National Kidney Foundation, http://nkdep.ni h.gov Alcohol Pvjks5720-49-57 15:15:20 Test Item Value Reference Range Interpretation Comments Ethanol Level (test <0.00 g/dL 0.00-0.01 Intoxica vandana 0.080 g/dL code = Ethanol or more Level) Ethanol Inst (test <0 N code = Ethanol Inst) Comprehensive Metabolic Ogqot6607-07-06 15:15:20 Test Item Value Reference Range Interpretation [...] the National Kidney Foundation, http://nkdep.ni h.gov Urinalysis Whfszpukouu7417-49-86 15:11:20 Test Item Value Reference Range Interpretation Comments UA WBC (test code = UA WBC) 6-10 0-5 A UA RBC (test code = UA RBC) 0-5 0-5 UA Bacteria (test code = UA Moderate A Bacteria) UA Squam Epithelial (test code = UA TNTC A Squam Epithelial) UA Mucous (test code = UA Mucous) Few A Urinalysis with Microscopic if miciemuyn7732-80-82 14:42:58 Test Item Value Reference Range Interpretation [...] GL_SJM_UA_MICRO _IN D Complete Blood Count with Uusqnwrhgipc1770-39-79 14:37:26 Test Item Value Reference Range Interpretation [...] code = IPF) 0 % N Automated Vaniwjitfpcz6089-42-84 14:37:26 Test Item Value Reference Range Interpretation Comments Neutro Auto (test code = Neutro 65.8 % 36.0-70.0 Auto) Lymph Auto (test code = Lymph Auto) 25.5 % 12.0-44.0 [place] Auto (test code = [place] Auto) 7.3 % 0.0-11.0 Eos, Auto (test code = Eos, Auto) 0.7 % 0.0-7.0 Basophil Auto (test code = Basophil 0.5 % 0.0-2.0 Auto) Neutro Absolute (test code = Neutro 6.0 x10 1.6-7.4 Absolute) Lymph Absolute (test code = Lymph 2.34 x10 .50-4.60 Absolute) [place] Absolute (test code = [place] .67 x10 .00-1.20 Absolute) Eos Absolute (test code = Eos 0.06 x10 0.00-0.74 Absolute) Baso Absolute (test code = Baso 0.05 x10 0.00-0.21 Absolute) IG Dhkmc9860-26-44 14:37:26 Test Item Value Reference Range Interpretation Comments IG (test code = IG) 0.2 % 0.0-5.0 IG Abs (test code = IG Abs) 0 x10 N HCG Qualitative Lzjyc1940-58-77 14:34:08 Test Item Value Reference Range Interpretation [...] 72 hours. Lot # (test code = [id number] N Lot #) Expiration Dt (test 2020-03-14 N code = Expiration Dt) Neg Control (test Negative code = Neg Control) Pos Control (test Positive code = Pos Control) Internal QC (test Acceptable code = Internal QC) DRUGS OF ABUSE SCREEN [id number] 17:11:00 Test Item Value Reference Range Interpretation [...] = [place]) concentrati on: 300 ng/mL URINALYSIS LGZPXBWM5081-32-52 17:08:00 Test Item Value Reference Range Interpretation [...] (test code = MOD NONE BACU) URINALYSIS KTTUSIBZ6933-12-09 17:00:00 Test Item Value Reference Range Interpretation [...] (test code = NONE BACU) HCG SERUM [id number] 16:52:00 Test Item Value Reference Range Interpretation Comments HCG SERUM QUAL (test code = HCGQL) NEGATIVE NEGATIVE - CT HEAD/BRAIN W/O WNWS3553-74-08 16:51:00 FAX: Theresa Fields MD [place]: St: REG Name: HEATHER HOPE [facility] : 1990 Age/S: 28/F [address] [facility] Unit: [id number] Loc: [place], [place] Phys: [place] [address] Acct: [id number] Dis Date: Status: REG E R PHONE #: [phone] Exam Date: 02/23/2019 1642 FAX #: [phone] Reason: SEIZURE EXAMS: CPT CODE: [id number] CT HEAD/BRAIN W/O CONT 37731 Dictation location: U19. CT HEAD WITHOUT CONTRAST. [...] (1601) t.GAVIOTAR.SP17 Orig Print D/T: S: 02/23/2019 (0924 PAGE 1 Signed ReportBASIC METABOLIC [id number] 16:31:00 Test Item Value Reference Range Interpretation [...] CA) 8.8 mg/dl 8.0-10.5 N BASIC METABOLIC [id number] 16:26:00 Test Item Value Reference Range Interpretation [...] code = CA) mg/dl 8.0-10.5 CBC W/AUTO [id number] 16:15:00 Test Item Value Reference Range Interpretation [...] 3-60 N code = VLDL) RAPID PLASMA [id number] 10:31:00 Test Item Value Reference Range Interpretation Comments RAPID PLASMA REAGIN (test code = Nonreactive Nonreactive RPR) GLYCOSYLATED HEMOGLOBIN (HA1C)2018-12-07 10:05:00 Test Item Value Reference Range Interpretation Comments GLYCOSYLATED HEMOGLOBIN (HA1C) 5.8 % TOT HB 4.5-6.2 N (test code = GLYHGB) OSDMOJGSHSOMB7940-03-84 15:31:00 Test Item Value Reference Range Interpretation Comments ACETAMINOPHEN (test < 1 MCG/ML 10-30 L Acetamin ophen is code = ACET) possibly toxic at levels of: 1. m ore than 150 MCG/ML 4 hours post kaylin stion. 2. more than 5 0 MCG/ML 12 hours post ingestion. [id number] 15:31:00 Test Item Value Reference Range Interpretation Comments SALICYLATE (test code = < 3 MG/DL 0-20 N Refe rence Range: BOSSMAN) Analgesic...... ...... ...... < 10 mg /dl Therapeutic.... ...... ...... 15-20 mg /dl Mild Toxicity....... ...... . > 30 mg/dl Severe Toxicity....... ..... > 60 mg/dl UA RFLX [id number] 14:18:00 Test Item Value Reference Range Interpretation [...] Clean Catch (test code = UASPEC) UA [id number] 14:18:00 Test Item Value Reference Range Interpretation Comments UA WBC (test code = WBCU) < 10 #/hpf <10 UA RBC (test code = RBCU) 0-2 #/hpf NONE SEEN A UA BACTERIA (test code = BACU) RARE #/hpf NONE SEEN UA SQUAMOUS CELLS (test code = 0 - 20 #/lpf <100 SQU) UA MUCUS (test code = MUCU) 1+ #/lpf NONE SEEN BASIC METABOLIC [id number] 14:16:00 Test Item Value Reference Range Interpretation [...] 9.4 MG/DL 8.7-10.5 N CA) HEPATIC FUNCTION [id number] 14:16:00 Test Item Value Reference Range Interpretation [...] 50-136 N TOTAL (test code = ALKP) [id number] 14:16:00 Test Item Value Reference Range Interpretation Comments CK (test code = CKT) 87 Units/L 26-192 N [id number] 14:16:00 Test Item Value Reference Range Interpretation Comments ALCOHOL (test code = < 3 MG/DL 0-10 N 0 - 10: Should be ALC) interpreted as NEGATIVE. 11 - 50: None to mild euphoria. 51 - 100: Mild influence on vision and dark adapta tion. > 80: Legal intoxication; D epression of BASEBALL UMPIRE FOR LITTLE LEAGUE; Increasing degr ee of poisoning. > 400: Fatalities repo rted. Results are for medical purposes only a nd not forlegal or emp loyment evaluative purp oses. BASIC METABOLIC [id number] 14:09:00 Test Item Value Reference Range Interpretation [...] 9.4 MG/DL 8.7-10.5 N CA) HEPATIC FUNCTION [id number] 14:09:00 Test Item Value Reference Range Interpretation [...] TOTAL (test Units/L 50-136 code = ALKP) [id number] 14:09:00 Test Item Value Reference Range Interpretation Comments CK (test code = CKT) Units/L 26-192 [id number] 14:09:00 Test Item Value Reference Range Interpretation Comments ALCOHOL (test code = ALC) MG/DL 0-10 LACTIC ACID [id number] 13:50:00 Test Item Value Reference Range Interpretation Comments LACTIC ACID POC 0.97 MMOL/L 0.90-1.70 N Performed by certified (test code = LACTP) foundation drill operator helper at [facility] [id number] 13:48:00 Test Item Value Reference Range Interpretation Comments GLUBED (test code = 88 MG/DL 65-99 N Performe d by certified GLUBED) foundation drill operator helper at [facility] DRUG OF ABUSE SCREEN [id number] 13:43:00 Test Item Value Reference Interpretation Comments [...] PHENCU) results thatmay be confirmed by al ternate methods (i.e., GC/MS) at [facility]. Results of scre en may not be usedin crimi nal justice, job performance or professionalcre dential review, or infa nt custody issues. Negativ e [place] Level ng/ml ------- ----- Cocaine 300 Methamp hetamine (Ecstacy) 500 Cannabinoids (THC) 50 Amphetamine 1000 Barbiturate s 200 Benzodia zepines 200 Opiat es 300 Ph encyclidine (PCP) 25 UR HCG [id number] 13:39:00 Test Item Value Reference Range Interpretation [...] using aquantitative h CG assay. UA RFLX [id number] 13:38:00 Test Item Value Reference Range Interpretation [...] Clean Catch (test code = UASPEC) UA [id number] 13:38:00 Test Item Value Reference Range Interpretation Comments UA WBC (test code = WBCU) #/hpf <10 UA RBC (test code = RBCU) #/hpf NONE SEEN UA SQUAMOUS CELLS (test code = SQU) #/lpf <100 UA RFLX [id number] 13:38:00 Test Item Value Reference Range Interpretation [...] Clean Catch (test code = UASPEC) UA [id number] 13:38:00 Test Item Value Reference Range Interpretation Comments UA WBC (test code = WBCU) #/hpf <10 UA RBC (test code = RBCU) #/hpf NONE SEEN UA SQUAMOUS CELLS (test code = SQU) #/lpf <100 CBC W/AUTO [id number] 13:26:00 Test Item Value Reference Range Interpretation [...] = BA#) 0.05 x10 3/uL 0.0-0.2 N [id number] 19:07:00 Test Item Value Reference Interpretation Comments Range LEVETIRACETAM 28.7 ug/mL 10.0-40.0 This test was developed and (test code = its performance LEVTAM) characteristics determined by [facility]. It has not been cleared orappro froylan by the Food and Drug Administration. Performed At: [place] [address] [place], [place] [id number] ra Larissa MENDOZA Ph:[phone] BASIC METABOLIC [id number] 04:58:00 Test Item Value Reference Range Interpretation [...] code = 8.9 MG/DL 8.7-10.5 N CA) [id number] 04:58:00 Test Item Value Reference Range Interpretation Comments MAGNESIUM (test code = MAG) 1.9 MG/DL 1.8-2.4 N CBC W/AUTO [id number] 04:08:00 Test Item Value Reference Range Interpretation [...] 0.0-0.2 N NRBC#) - MRI BRAIN W/O [id number] 13:51:00 Patient Name: HEATHER HOPE NOVEMBER Unit No: [id number] EXAMS: CPT CODE: [id number] MRI BRAIN W/O CONTRAST [id number] Reason: sz INDICATION: Seizure COMPARISON: CT brain, [...] MD Technologist: Andre Self MRI Trscrpt Dt/ (3404)AngeliqueDW6 Orig Print D/T: S: 09/17/2018 (7223) [facility] CntNAME: HEATHER HOPE NOVEMBER [address] PHYS: [place] [address] : 1990 AGE: 27 SEX: F LOC: [id number] 1 PHONE #: [phone] EXAM DATE: 09/17/2018 STATUS: ADM IN FAX #: RAD NO: DC Dt: PAGE 1 Signed [id number] 07:25:00 Test Item Value Reference Range Interpretation Comments PROLACTIN (test code = 24.6 ng/mL 4.8-23.3 H Perfo rmed At: HD PROLAC) [facility] [address] [id number] Sb Man MD Ph:[phone] UA RFLX MICROSCOPIC [id number] 19:02:00 Test Item Value Reference Range Interpretation [...] UACULT) URINE SOURCE: Clean CatchUA RFLX MICROSCOPIC [id number] 18:56:00 Test Item Value Reference Range Interpretation [...] (test code = UACULT) URINE SOURCE: Clean [id number] 15:56:00 Test Item Value Reference Range Interpretation Comments CK (test code = CKT) 34 Units/L 26-192 N BASIC METABOLIC [id number] 12:57:00 Test Item Value Reference Range Interpretation [...] code = 8.6 MG/DL 8.7-10.5 L CA) [id number] 12:57:00 Test Item Value Reference Range Interpretation Comments CK (test code = CKT) 32 Units/L 26-192 N CBC W/AUTO [id number] 12:33:00 Test Item Value Reference Range Interpretation [...] 3/uL 0.0-0.2 N NRBC#) TOTAL IRON BINDING [id number] 05:50:00 Test Item Value Reference Range Interpretation Comments SERUM IRON (test code = IRON) 17 MCG/DL 50-170 L TOTAL IRON BINDING CAPACITY (test 363 MCG/DL 280-400 N code = TIBC) IRON SATURATION (test code = 5 % 15-50 L FESAT) [id number] 05:50:00 Test Item Value Reference Range Interpretation Comments FERRITIN (test code = LULI) 11 NG/ML 3-105 N HEPATIC FUNCTION [id number] 05:32:00 Test Item Value Reference Range Interpretation [...] code = ALKP) - CT HEAD/BRAIN W/O [id number] 20:19:00 Patient Name: HEATHER HOPE Unit No: [id number] EXAMS: CPT CODE: [id number] CT HEAD/BRAIN W/O CONT 02980 Reason: seizure TECHNIQUE: Contiguous 5 mm images [...] Technolog ist: Edel Cade CT Trscrpt Dt/ (2018)tPERLA Orig Print D/T: S: 09/14/2018 (2021) CTDI: DLP: [facility] NAME: [address] PHYS: HOGJA. Keanu Váz[place] [id number] : 1990 AGE: 27 SEX: F LOC: DCHERYL PHONE#: [phone] EXAM DATE: 09/14/2018 STATUS: REG ER FAX #: RAD NO: DC Dt: PAGE 1 Signed Report- XR CHEST 1 [id number] 20:18:00 Patient Name: HEATHER HOPE Unit No: [id number] EXAMS: CPT CODE: [id number] XR CHEST 1 V 73512 Reason: screen for pneumonia FINDINGS: Single view ofthe chest shows normal heart size and pulmonary vasculature. The lungs are clear bilaterally. There is no focal infiltrate, pleural effusion or pneumothorax. IMPRESSION: No acute cardiopulmonary findings at 2018 Reported and signed by: Lashell Jimenez MD CC: Keanu Vázquez MD; Cristiane Heath Technologist: Edel Cade CT Trscrpt Dt/ (2017)Tristan Orig PrintD/T: S: 09/14/2018 (2020) [facility] NAME[facility] [place] [id number] PHYS: HOGJA. - Keanu [place]áz[place] [id number] : 1990 AGE: 27 SEX: F LOC: MATT PHONE #: [phone] EXAM DATE: 09/14/2018 STATUS: REG ER FAX [...] using aquantitative h CG assay. BASIC METABOLIC [id number] 19:51:00 Test Item Value Reference Range Interpretation [...] 9.3 MG/DL 8.7-10.5 N CA) CBC W/AUTO [id number] 19:46:00 Test Item Value Reference Range Interpretation [...] BA#) 0.05 x10 3/uL 0.0-0.2 N BLOOD [id number] 10:00:00 Test Item Value Reference Range Interpretation Comments CULTURE (BEAKER) (test No growth in 5 days code = 1095) HCG, QUANTITATIVE, [id number] 15:37:00 Test Item Value Reference Range Interpretation Comments GONADOTROPIN, CHORIONIC (HCG) 06579 mIU/mL 0-10 H QUANT (BEAKER) (test code = 649) Non- Females: <10 mIU/mL Females: Gestation Age Reference Range(mIU/mL) 0.2-1 Week 5-50 1-2 Weeks 50-500 2-3 Weeks 100-5,000 3-4Weeks 500-10,000 4-5 Weeks 1,000-50,000 5-6 Weeks 10,000-100,000 6-8 Weeks 15,000-200,000 2-3 Months 10,000-100,000COMPREHENSIVE METABOLIC [id number] 15:10:00 Test Item Value Reference Range Interpretation [...] PATIEN TS. CBC W/PLT COUNT & AUTO [id number] 14:53:00 Test Item Value Reference Range Interpretation [...] (test code = 2801) U/S, , FIRST [id number] 07:52:00Reason for exam:-> Reason for exam:->please include [...] 1 day. An embryonic pole is evident. [place]-rump length measures 0.63 cm, correlating with estimated [...] MDReport Verified Date/Time: 05/17/2017 07:52:37 Reading Location: [place] [id number] [facility] Consult Reading Room PREGNANCY SCREEN, [id number] 05:28:00 Test Item Value Reference Range Interpretation Comments TEST URINE (BEAKER) (test Positive code = 583) MR, BRAIN, WITHOUT [id number] 18:54:00Reason for exam:->Stroke evaluationFINAL REPORT MRI brain [...] Parra Verified Date/Time: 05/15/2017 18:54:11 Reading Location: [facility] Radiology Reading Room EEG AWAKE AND [id number] 12:08:00Reason for exam:->? nonconvulsive statusDATE OF TEST: 05/15/2017DATE OF REPORT 05/15/2017 ACC: [id number] EE Start time: 1034 Stop time: 1054 ICD-10: R56.9CPT Code: 56950WISLFAY: 26 y/o woman with epilepsy found down [...] recordings.Marika Smith M.D.Neurophysiology FellowSwathi Harper M.D.Neurophysiology Attending [id number] 04:27:00 Test Item Value Reference Range Interpretation Comments PROCALCITONIN (BEAKER) (test code 0.17 ng/mL <0.05 H = 3036) SEPSIS RISK (ng/mL)Low: 0.05-0.50Intermediate: 0.51-2.00High: >=2.01BASIC METABOLIC [id number] 03:15:00 Test Item Value Reference Range Interpretation [...] (test 200 U/L 29-200 code = 380) [id number] 03:15:00 Test Item Value Reference Range Interpretation Comments PHOSPHORUS (BEAKER) (test code = 3.1 mg/dL 2.3-4.7 604) [id number] 03:15:00 Test Item Value Reference Range Interpretation Comments MAGNESIUM (BEAKER) (test code = 1.9 mg/dL 1.6-2.6 627) LACTIC ACID, VENOUS, WHOLE [id number] 03:09:00 Test Item Value Reference Range Interpretation Comments LACTATE BLOOD VENOUS (2) (BEAKER) 0.6 mmol/L 0.5-2.2 (test code = 2872) Effective 10/17/2015: Units/Reference Range ChangeNew: 0.5-2.2 mmol/L Previous: 5-20 mg/dLPROTHROMBIN [id number] 03:07:00 Test Item Value Reference Range Interpretation [...] = 2801) RAD, CHEST, 1 VIEW, NON [id number] 01:06:00Reason for exam:->possible infectionShould this be performed at the bedside?->YesFINAL REPORT History: Infection. Comparison: None. Findings: A single view of the chest is submitted. The cardiomediastinal contours are unremarkable. There is no focal consolidation, pneumothorax, large pleural effusion or evidence of overt pulmonary edema. There is no acute bony abnormality. Impression: No acute abnormality. Signed: Shabnam Zhu Verified Date/Time: 05/15/2017 01:06:06 Reading Location: [address] Reading Room
[2020-12-24 12:58] LABS: Absolute Lymphocytes (CBC) 1.7 K/uL (0.7-4.9); Basophils % 0.9 % (0-1.3); Hematocrit 35.4 % (36.0-45.0); Lymphocytes % 24.8 % (15.3-44.8); MPV 7.8 fL (7.6-11.3); RBC Red Blood Cell Count 4.41 M/uL (3.86-4.86)
[2020-12-24 13:06] LABS: Urine Blood Trace-intact (Negative); Urine Glucose Negative (Negative); Urine Protein 1+ (Negative); Urine Specific Gravity >=1.030 (1.005-1.030); Urine pH 5.5 (5.0-7.0)
[2020-12-24 13:20] LABS: ALT/SGPT 24 U/L (12-78); AST/SGOT 16 U/L (15-37); Albumin 4.2 g/dL (3.4-5.0); Alkaline Phosphatase 80 U/L (45-117); BUN Blood Urea Nitrogen 6 mg/dL (7-18); Bicarbonate 24 mmol/L (21-32); Bilirubin Direct < 0.1 mg/dL (0-0.2); Bilirubin Total 0.3 mg/dL (0.2-1.0); Glucose Level 89 mg/dL (74-106); Potassium 3.6 mmol/L (3.5-5.1); Protein, Total 7.7 g/dL (6.4-8.2); Sodium Level 139 mmol/L (136-145)
[2020-12-24 13:25] LABS: Barbiturates POSITIVE (NEGATIVE); Benzodiazepines NEGATIVE (NEGATIVE); Cocaine NEGATIVE (NEGATIVE); METHAMPHETAM NEGATIVE (NEGATIVE); Methadone NEGATIVE (NEGATIVE); Opiates NEGATIVE (NEGATIVE); Phencyclidine NEGATIVE (NEGATIVE); THC Cannibis NEGATIVE (NEGATIVE)
[2020-12-24 14:32] LABS: Blood Morphology Comment NOTED (NOT SEEN); Platelet Estimate ADEQ; Poikilocytosis 1+; White Blood Cell Scan OK (OK)
[2020-12-24] MEDS ORDERED: SMZ./TMP. 800/160 MG TABLET ONE (14:59)
--- NOTE | 2020-12-24 15:05 | ER ---
Nurse's Notes [facility] Name: Heather Hope Age: 30 yrs Sex: Female : 1990 Arrival Date: 12/24/2020 Time: 12:02 Bed 16 Private MD: Diagnosis: Suicidal ideations;UTI/ Urinary tract infection, site not specified Presentation: 12/24 12:36 Chief complaint: Patient states: SI. pt states that she has SI with a plan and has tr6 attempted in the past about 1 year ago. Coronavirus screen: At this time, unable to obtain information related to travel outside the [place] Ebola Screen: No symptoms or risks identified at this time. Initial Sepsis Screen: Does the patient meet any 2 criteria? No. Patient's initial sepsis screen is negative. Does the patient have a suspected source of infection? No. Patient's initial sepsis screen is negative. Risk Assessment: Do you want to hurt yourself or someone else? Patient reports no desire to harm self or others. Onset of symptoms is unknown. 12:36 Method Of Arrival: Ambulatory tr6 12:36 Acuity: DARLYN 2 ss Triage Assessment: 12:37 General: Appears in no apparent distress. comfortable, Behavior is calm, cooperative, tr6 appropriate for age. Pain: Denies pain. EENT: No deficits noted. Neuro: No deficits noted. Cardiovascular: No deficits noted. Respiratory: No deficits noted. GI: No deficits noted. : No deficits noted. Derm: No deficits noted. Musculoskeletal: No deficits noted. Historical: - Allergies: 12:37 No Known Allergies; tr6 - Home Meds: 12:37 Dilantin Oral [Active]; tr6 - PMHx: 12:37 Anemia; Depression; Seizures; tr6 - Immunization history:: Adult Immunizations unknown. - Social history:: Smoking status: Patient/guardian denies using. Screenin:39 Nutritional screening: No deficits noted. Tuberculosis screening: No symptoms or risk tr6 factors identified. Fall Risk None identified. 18:49 Abuse screen: Denies threats or abuse. Denies injuries from another. tr6 Assessment: 12:48 Reassessment: see triage assessment. tr6 12:48 Reassessment: No changes from previously documented assessment. Patient and/or family tr6 updated on plan of care and expected duration. Pain level reassessed. Patient is alert, oriented x 3, equal unlabored respirations, skin warm/dry/pink. OK for pt to eat per DANISH Arreaga. pt currently eating independently. 15:04 Reassessment: gave RN to RN report to bernarda TAYLOR from [facility]. tr6 16:00 Reassessment: Patient and/or family updated on plan of care and expected duration. Pain tr6 level reassessed. Patient is alert, oriented x 3, equal unlabored respirations, skin warm/dry/pink. 18:27 Reassessment: Whitley PENG at bedside. tr6 18:28 Reassessment: Whitley PENG OK with pt using phone at RN station. tr6 20:49 General: pt given home medication dosage of dilantin, 2 100mg capsules at 2030, verbal bs2 order from Steve Arreaga RN ENDOCRINOLOGY to give home medication. Vital Signs: 13:03 BP 156 / 91; Pulse 102; Resp 18; Temp 98.4(O); Pulse Ox 100% on R/A; tr6 20:29 BP 123 / 79; Pulse 89; Resp 16; Temp 98.6(O); Pulse Ox 100% on R/A; Pain 0/10; bs2 ED Course: 12:02 Patient arrived in ED. tr6 12:05 Cristina Nicole, CLAUDIA is Primary Nurse. tr6 12:13 Steve Arreaga PA is PHCP. cp 12:13 Moi Avalos MD is Attending Physician. cp 12:37 Arm band placed on right wrist. Patient placed in an exam room, on a stretcher. tr6 12:39 No apparent distress. Resting quietly. Awaiting lab results. Safety Checks: Personal tr6 items have been removed. The door is open or patient has been placed in a hallway bed/chair. 12:39 Patient has correct armband on for positive identification. Bed in low position. Call tr6 light in reach. Side rails up X2. Valuables inventory done. Door closed. Noise minimized. Visitors limited. Lights dimmed. Moved to private room. Warm blanket given. Diet: Patient given a heart healthy meal tray. Patient given snack. Tolerated well. Patient is placed in psych hold. 12:39 No provider procedures requiring assistance completed. Patient maintains SpO2 tr6 saturation greater than 95% on room air. 12:48 Missed attempt(s): 24 gauge in right forearm. blood collected . Bleeding controlled, ss band aid applied, catheter tip intact. 12:49 Triage completed. ss 13:44 faxed patient records to the following facilities in the attempt to transfer/ [facility]; [facility] and [facility]. 14:58 connected Bernarda Taylor from [facility] with Cristina Rn for nurse to nurse eb consultation. 19:01 Primary Nurse role handed off by Cristina Nicole, RN mw2 20:06 faxed patient clinicals to [facility], [facility], mw2 [facility], [facility]. 20:17 nurse to nurse with Marla from [facility]. mw2 20:19 Alena Matthew, RN is Primary Nurse. bs2 20:33 doc to doc from [facility]. mw2 20:40 administrative approval given by Kt Moss/ patient has been accepted to [address]/ Dr. Prince accepted the patient in transfer. Administered Medications: 14:40 Drug: Bactrim (trimethoprim-sulfamethoxazole) (160 mg-800 mg (DS) 1 tablet Route: PO; tr6 Outcome: 15:05 ER care complete, transfer ordered by . cp 21:10 Patient left the ED. mw2 Signatures: Anyi Car, RN RN ss Steve Arreaga PA PA cp [place], MyKena mw2 Kari Rivera Cristina Nicole, RN RN tr6 Alena Matthew, CLAUDIA RN bs2
--- NOTE | 2020-12-24 15:06 | EDPHYS ---
Physician Documentation [facility] Name: eHather Hope Age: 30 yrs Sex: Female : 1990 Arrival Date: 12/24/2020 Time: 12:02 Bed 16 Private MD: ED Physician Moi Avalos HPI: 12/24 12:20 This 30 yrs old Female presents to ER via Unassigned with complaints of cp Suicidal Ideation. 12:20 The patient presents to the emergency department with depression, suicide ideation, and cp the patient has a plan, to shoot self. 12:20 Onset: The symptoms/episode began/occurred gradually. cp 12:20 Past psychiatric history: Prior diagnosis: depression, Psychiatric medications include: cp none, the patient does not have a previous inpatient psychiatric history. Historical: - Allergies: 12:37 No Known Allergies; tr6 - Home Meds: 12:37 Dilantin Oral [Active]; tr6 - PMHx: 12:37 Anemia; Depression; Seizures; tr6 - Immunization history:: Adult Immunizations unknown. - Social history:: Smoking status: Patient/guardian denies using. ROS: 12:23 Psych: Positive for depression, suicidal ideation. cp 12:23 Eyes: Negative for injury, pain, redness, and discharge. cp 12:23 Constitutional: Negative for body aches, chills, fever, poor PO intake. 12:23 Cardiovascular: Negative for chest pain. 12:23 Respiratory: Negative for cough, shortness of breath, wheezing. 12:23 Abdomen/GI: Negative for abdominal pain, nausea, vomiting, and diarrhea. 12:23 Neuro: Negative for altered mental status, headache, weakness. 12:23 All other systems are negative. Exam: 12:30 Constitutional: The patient appears in no acute distress, alert, awake, cp non-diaphoretic, non-toxic, well developed, well nourished. 12:30 Head/Face: Normocephalic, atraumatic. cp 12:30 Eyes: Periorbital structures: appear normal, Pupils: equal, round, and reactive to cp light and accomodation, Extraocular movements: intact throughout, Conjunctiva: normal, no exudate, no injection, Sclera: no appreciated abnormality, Lids and lashes: appear normal, bilaterally. 12:30 ENT: External ear(s): are unremarkable, Nose: is normal, Mouth: Lips: moist, Oral mucosa: moist, Posterior pharynx: Airway: no evidence of obstruction, patent. 12:30 Neck: ROM/movement: is normal, is supple, without pain, no range of motions limitations.cp 12:30 Chest/axilla: Inspection: normal. 12:30 Cardiovascular: Rate: tachycardic, Rhythm: regular. 12:30 Respiratory: the patient does not display signs of respiratory distress, Respirations: normal, no use of accessory muscles, no retractions, labored breathing, is not present, Breath sounds: are clear throughout, no decreased breath sounds, no stridor, no wheezing. 12:30 Abdomen/GI: Exam negative for discomfort, distension, guarding, Inspection: abdomen appears normal. 12:30 Neuro: Orientation: to person, place \T\ time. Mentation: is normal, Cerebellar function: is grossly normal, Motor: moves all fours, strength is normal, Sensation: is normal. 13:17 ECG was reviewed by the Attending Physician. Vital Signs: 13:03 BP 156 / 91; Pulse 102; Resp 18; Temp 98.4(O); Pulse Ox 100% on R/A; tr6 20:29 BP 123 / 79; Pulse 89; Resp 16; Temp 98.6(O); Pulse Ox 100% on R/A; Pain 0/10; bs2 MDM: 12:19 Patient medically screened. cp 12:30 Differential diagnosis: drug withdrawal. acute psychotic break, depression. cp 14:30 Data reviewed: vital signs, nurses notes, lab test result(s), EKG. cp 14:35 Counseling: I had a detailed discussion with the patient and/or guardian regarding: the historical points, exam findings, and any diagnostic results supporting the discharge/admit diagnosis, lab results, the need to transfer to another facility, [facility] does not immediately have the required specialist. 12/24 12:20 Order name: Acetaminophen; Complete Time: 14:22 cp 12/24 12:20 Order name: Basic Metabolic Panel; Complete Time: 14:22 cp 12/24 14:22 Interpretation: Normal except: BUN 6; CRE 0.47; CA 8.4. cp 12/24 12:20 Order name: CBC with Diff; Complete Time: 20:34 cp 12/24 12:20 Order name: ETOH Level; Complete Time: 14:22 cp 12/24 12:20 Order name: Hepatic Function; Complete Time: 14:22 cp 12/24 12:20 Order name: Salicylate; Complete Time: 14:22 cp 12/24 12:20 Order name: Urine Drug Screen; Complete Time: 14:22 cp 12/24 13:06 Order name: Urine Dipstick-Ancillary; Complete Time: 14:22 EDMS 12/24 14:22 Interpretation: Normal except: UKET 4+; UBLD Trace-intact; UPROT 1+; U NIT Positive; cp UESTR Trace. 12/24 13:06 Order name: Urine Dipstick-Ancillary EDMS 12/24 13:07 Order name: Urine --Ancillary (enter results); Complete Time: 14:22 eb 12/24 14:29 Order name: SARS-COV-2 RT PCR; Complete Time: 20:34 EDUT 12/24 12:20 Order name: EKG; Complete Time: 12:20 cp 12/24 12:20 Order name: EKG - Nurse/Tech; Complete Time: 13:15 cp 12/24 12:20 Order name: IV Saline Lock; Complete Time: 13:02 cp 12/24 12:20 Order name: Labs collected and sent; Complete Time: 12:48 cp 12/24 12:20 Order name: Suicide Precautions; Complete Time: 12:48 cp 12/24 12:20 Order name: Suicide Screening (Egan); Complete Time: 12:48 cp 12/24 12:20 Order name: Urine Dipstick-Ancillary (obtain specimen); Complete Time: 13:02 cp 12/24 12:20 Order name: Urine Test (obtain specimen); Complete Time: 13:02 cp 12/24 13:51 Order name: Diet Regular; Complete Time: 13:52 tr6 12/24 14:31 Order name: CBC Smear Scan; Complete Time: 20:34 EDMS 12/24 18:49 Order name: Diet Regular; Complete Time: 18:49 tr6 EC:17 Rate is 94 beats/min. Rhythm is regular. DC interval is normal. QRS interval is normal. cp QT interval is normal. T waves are Inverted in leads III, aVR, V2, V3. Interpreted by me. Reviewed by me. Administered Medications: 14:40 Drug: Bactrim (trimethoprim-sulfamethoxazole) (160 mg-800 mg (DS) 1 tablet Route: PO; tr6 Disposition: 12/25 06:59 Co-signature as Attending Physician, Moi Avalos MD I agree with the assessment and rn plan of care. Attestation: The patient's history, exam findings, diagnostics, and a summary of any interventions or procedures was reviewed in detail with Steve PENG. Disposition Summary: 12/24/20 15:05 Transfer Ordered Transfer Location: [facility] Facility cp Reason: Higher level of care cp Condition: Stable cp Problem: new cp Symptoms: are unchanged cp Accepting Physician: DR Prince(12/24/20 21:10) mw2 Diagnosis - Suicidal ideations cp - UTI/ Urinary tract infection, site not specified cp Discharge Instructions: - Discharge Summary Sheet cp - Urinary Tract Infection, Adult cp Forms: - Medication Reconciliation Form cp - SBAR form cp Prescriptions: - Bactrim DS 800-160 mg Oral Tablet - take 1 tablet by ORAL route every 12 hours for 7 days; 14 tablet; Refills: 0, cp Product Selection Permitted Signatures: Dispatcher [employer] EDMS Moi Avalos MD MD rn Page, Corey, PA PA cp Brittnee Tobar mw2 Cristina Nicole RN RN tr6 Corrections: (The following items were deleted from the chart) 12/24 13:27 12:51 CORONAVIRUS+MR.LAB.BRZ ordered. EDMS EDMS 20:29 12:20 PROTIME (+INR)+COAG.LAB.BRZ ordered. EDMS EDMS 20:29 12:20 PTT, ACTIVATED+COAG.LAB.BRZ ordered. EDMS EDMS 20:36 15:05 Doctor cp cp 20:37 20:36 DR Prince cp cp 21:10 20:37 DR Prince cp mw2
--- NOTE | 2020-12-24 16:03 | EKG ---
Test Date: 2020-12-24 Test Time: 13:12:05 Dental Laboratory Assistant: ANGELO MEASUREMENT RESULTS: Intervals: Rate: 94 LA: 154 QRSD: 76 QT: 344 QTc: 430 [place]: P: 48 LA: 154 QRS: 28 T: 15 INTERPRETIVE STATEMENTS: Normal sinus rhythm Cannot rule out Anterior infarct, age undetermined Abnormal ECG Compared to ECG 11/21/2020 21:28:30 Myocardial infarct finding now present Sinus tachycardia no longer present Electronically Signed On 12-24-20 16:02:34 CDT by Merrill Guzman
[2020-12-24 21:15] VITALS: O2SAT 100
[2020-12-24 21:17] VITALS: BP 123/79; TEMP 98.6
== END 2020-12-24 21:10 ==
LOC: ER 11:57
DX: R45.851 Suicidal ideations (principal); N39.0 Urinary tract infection, site not specified; G40.909 Epilepsy, unspecified, not intractable, without status epilepticus; Z20.822 Contact with and (suspected) exposure to COVID-19
CPT/HCPCS: 93005; 85025; 80048; 36415; 80320; 80329 ×2; 81025; 80076; 81003; 80307; U0003; 99284

== ENCOUNTER 2021-02-11 13:23 | Emergency (ER) | payer OTHER ==
--- OUTSIDE RECORDS SUMMARY | 2021-02-11 13:31 | XMS REPORT | Continuity of Care Document ---
:1990 Author Organization [facility] t Address [address] [place] [address] Care Team Providers Name Role Phone Asked, Pcp Primary Care Physician Unavailable Niki RN, A Attending Clinician Unavailable Rafael CRUZ Attending Clinician Unavailable Gaye MENDOZA Attending Clinician Juancarlos Fu MD Attending Clinician Rickie TAYLOR, A Attending Clinician Unavailable Leeann Foster MD Attending Clinician Elvia Reyes MD Attending Clinician Chauncey Brumfield APRN Attending Clinician MD LEEANN FOSTER Attending Clinician Unavailable Killian Jacobo MD Attending Clinician Galina Cruz MD Attending Clinician Sofi Van MD Attending Clinician Arya MENDOZA Attending Clinician MD ARYA Attending Clinician Unavailable Pavan Matos DO Attending Clinician Mayito Daily MD Attending Clinician Pramod Alvarado MD Attending Clinician Pham Watkins MD [...] Source Type Number Date Date CIGNACIGNA OPEN [id number] 2019 Church ACCESS/[id number] 2 00:00:00 Hospital /2020-PresentO [facility] MEDICAIDUNITEDHEALTHCARE [id number] 2020 Church [place] STAR 00:00:00 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 00:00: Hospit a with with 00 l generaliza generaliza tion and tion and with with intractabl intractabl e epilepsy e epilepsy Seizure Seizure Disease Active [facility] 11-11 st 00:00: Hospita 00 l Hypokalemi Hypokalemi Disease Active 2016-06 C HI [...] weeks 1-30 [facility] - gestation gestation 00:00: [facility] jseica of of 00 Center Allergies, Adverse Reactions, Alerts Allergy Allergy Status Severity Reaction(s) Onset Inactive Treating Comm ents Source Name Type Date Date Clinician No Known DA Active U [facility] Allergie 9-11 [facility] 00:00: d 00 [facility] [place] No Known DA Active U 2016-06 [facility] Allergie 07-08 [facility] s 00:00: Jess 00 [facility] Family History Family Member Diagnosis Comments Start Date Stop Date Source Natural father No Known Problems Met [facility] Natural mother No Known Problems Met [facility] Paternal Multiple sclerosis Method ist grandmother [facility] Family member Diabetes [facility] Family member Hypertension [facility] Social History Social Habit Start Date Stop Date Quantity Comments Source Tobacco use and 2021-01-30 2021-01-30 Never used Church exposure 00:00:00 00:00:00 Hospital Alcohol intake 2021-01-30 2021-01-30 Lifetime Church 00:00:00 00:00:00 non-drinker Hospital (finding) Sex Assigned At [birth year] Church 00:00:00 00:00:00 Hospital Smoking Status Start Date Stop Date Source Never smoker [facility] Medications Ordered Filled Start Stop Current Ordering Indication Dosage Frequency Signature Comments Components Source Medication Medication Date Date Medication? Clinician (SIG) Name Name phenytoin Yes 200mg Q.5D Take 2 Metho di (Dilantin 8-17 capsules [facility]) 00:00: (200 mg Hospit a 100 MG ER 00 total) by l capsule mouth 2 (two) times a day. doxycycline No 100mg Q.5D Take 1 Me thodi (VIBRAMYCIN 11-09-[address] ) 100 MG 00:00: 04:59 (100 mg Hospi ta capsule 00 :00 total) by l mouth 2 (two) times a day for 7 [place] [id number] 1{tbl} Q6H Take 1-2 Methodi en-codeine 11-09-[address] (TYLENOL 00:00: 04:59 mouth Hospita WITH 00 :00 every 6 l CODEINE #3) (six) 300-30 mg hours as per tablet needed for moderate pain for up to 7 days .acute pain. phenytoin 2020- No 300mg QD Take 3 Meth maude (Dilantin -22 08-[address] [facility]) 00:00: 00:00 (300 mg Hospi ta 100 MG ER 00 :00 total) by l capsule mouth daily. 300 mg bid for day one and then 300 mg bid ferrous 2020- No 325mg Q.5D Take 1 Method i sulfate 325 09-13-[address] (65 FE) MG 00:00: 04:59 (325 mg Hos chely tablet 00 :00 total) by l mouth 2 (two) times a day with meals for 30 days. cloBAZam 2020- No [id number] 25mg Q.5D Take 2.5 Methodi (ONFI) 10 4 05-[address] mg tablet 00:00: 04:59 (25 mg Hospi ta 00 :00 total) by l mouth 2 (two) times a day for 30 days. cloBAZam 2020- No [id number] 30mg Q.5D Take 1.5 [facility] (ONFI) 20 4 04-[address] mg tablet 00:00: 00:00 (30 mg Hospi ta 00 :00 total) by l mouth 2 (two) times a day for 30 days. cloBAZam 2020- No [id number] 25mg Q.5D Take 2.5 [facility] (ONFI) 10 09-13 04-[address] mg tablet 00:00: 00:00 (25 mg Hospi ta 00 :00 total) by l mouth 2 (two) times a day for 30 days. cloBAZam 2020- No 40mg QD Take 2 Method i (ONFI) 20 3 04-[address] mg tablet 00:00: 00:00 (40 mg Hospi ta 00 :00 total) by l mouth daily for 60 days. phenytoin 2020- No 100mg Q.5D Take 100 Me thodi (DILANTIN) 1-15 01-[address] 100 MG ER 19:41: 00:00 mouth 2 Hosp polly capsule 47 :00 (two) l times a day. cloBAZam 2020- No 30mg QD Take 3 Method i (ONFI) 10 1-15 03-[address] mg tablet 00:00: 00:00 (30 mg Hospi ta 00 :00 total) by l mouth daily for 60 days. cloBAZam 2019-06- No 30mg QD Take 3 Method i (ONFI) 10 1-12 01-[address] mg tablet 00:00: 00:00 (30 mg Hospi ta 00 :00 total) by l mouth daily for 180 days. ergocalcife 2019-06- No [id number] Q7D Take 1 M ethodi rol 0-31 12-[address] (VITAMIN 00:00: 05:59 (50,000 Hospi ta D2) 50,000 00 :00 Units l unit total) by capsule mouth once a week for 30 days. levETIRAcet 2019-06- No 2250mg Q.5D Take 3 M ethodi am (KEPPRA) 0-25 11-[address] 750 MG 00:00: 05:59 (2,250 mg Hospi ta tablet 00 :00 total) by l mouth 2 (two) times a day for 30 days. cloBAZam 2019-06- No 10mg Q.5D Take 1 Method i (ONFI) 10 0-24 11-12 tablet (10 st mg tablet 00:00: 00:00 mg total) Ho spita 00 :00 by mouth 2 l (two) times a day for 30 days. levETIRAcet 2019-06- No 1250mg Q.5D Take 5 M ethodi am (KEPPRA) 0-23 10-[address] 250 MG 00:00: 00:00 (1,250 mg Hospi ta tablet 00 :00 total) by l mouth 2 (two) times a day for 30 days. divalproex 2019-06- No 250mg Q.5D Take 250 M ethodi (DEPAKOTE) 0-01 10-[address] 250 MG EC 17:25: 00:00 mouth 2 Hosp polly tablet 56 :00 (two) l times a day. cloBAZam 2019-06- No 10mg QD Take 1 Method i (ONFI) 10 0-01 10-24 tablet (10 st mg tablet 00:00: 00:00 mg total) Ho spita 00 :00 by mouth l nightly for 180 days. levETIRAcet 2019- No 750mg Q.5D Take 750 Methodi am (KEPPRA) 8-08 10-[address] 750 MG 00:00: 00:00 mouth 2 Hospita tablet 00 :00 (two) l times a day. 2016-06 Yes 1{tbl} QD Take 1 [facility]-06 tablet by [facility] - w/calcium-i 00:00: mouth Medic al parmjit-folate 00 daily. Center ( PLUS) 27 mg iron- 1 mg Tab levETIRAcet 2016-06 Yes 1000mg Q.5D Take [address] am (KEPPRA) 2-05 tablet [facility] - 1000 MG 00:00: (1,000 mg Medic al tablet 00 total) by Center mouth 2 (two) times daily. Immunizations Ordered Immunization Filled Immunization Date Status Commen ts Source Name Name Tdap 2020-05-02 Completed [facility] 00:[facility]:00 Hospital Vital Signs Vital Name Observation Time Observation Value Comments Source Systolic blood 2020-11-29 14:45:00 136 mm[Hg] [facility] pressure Diastolic blood 2020-11-29 14:45:00 88 mm[Hg] [facility] pressure Heart rate 2020-11-29 14:45:00 99 /min [facility] Body temperature 2020-11-29 14:45:00 36.67 Melody [facility] Body height 2020-11-29 14:45:00 160 cm [facility] Body weight 2020-11-29 14:45:00 70.171 kg [facility] BMI 2020-11-29 14:45:00 27.40 kg/m2 [facility] Respiratory rate 2020-11-09 16:14:22 18 /min [facility] Oxygen saturation in 2020-11-09 16:14:22 96 /min [facility] Arterial blood by Pulse oximetry Procedures Procedure Date / Time Performing Clinician Source Performed BASIC METABOLIC PANEL 2020-11-09 09:21:00 [facility] HC COMPLETE BLD COUNT 2020-11-09 09:21:00 [facility] W/AUTO DIFF IONIZED CALCIUM 2020-11-09 09:21:00 Cristiane Perez spital MAGNESIUM LEVEL 2020-11-09 09:21:00 Cristiane Perez spital PHOSPHORUS LEVEL 2020-11-09 09:21:00 Cristiane Perez ospital ESTIMATED GFR 2020-11-09 09:21:00 Cristiane Perez Ho spital POC GLUCOSE 2020-11-09 01:00:[facility] 2020-11-08 20:40:00 [facility] POC GLUCOSE 2020-11-08 12:52:00 [facility] POC GLUCOSE 2020-11-08 09:25:00 [facility] HC COMPLETE BLD COUNT 2020-11-08 05:28:00 [facility] W/AUTO DIFF Nadeem BASIC METABOLIC PANEL 2020-11-08 05:28:00 [facility] Nadeem PHOSPHORUS LEVEL 2020-11-08 05:28:00 [facility] Nadeem MAGNESIUM LEVEL 2020-11-08 05:28:00 [facility] Nadeem IONIZED CALCIUM 2020-11-08 05:28:00 [facility] Nadeem ESTIMATED GFR 2020-11-08 05:28:00 [facility] Nadeem POC GLUCOSE 2020-11-08 05:00:00 [facility] P[facility]SE 2020-11-08 [facility] 2020 20:34:[facility] P[facility]UCOSE 2020 16:44:00 [facility] POC GLUCOSE 2020 12:51:[address] HEAD WO CONTRAST 2020 08:52:23 Karel Johnathan [facility] [place] POC GLUCOSE 2020 08:31:[facility] COMPLETE BLD COUNT 2020 05:17:00 [facility] W/AUTO DIFF MAGNESIUM LEVEL 2020 05:17:00 Kendall Daily Ho spital PHOSPHORUS LEVEL 2020 05:17:00 Kendall Daily H ospital IONIZED CALCIUM 2020 05:17:00 Kendall Daily Ho spital BASIC METABOLIC PANEL 2020 05:17:00 [place] [facility] ESTIMATED GFR 2020 05:17:00 Kendall Daily Ho spital POC GLUCOSE 2020 04:40:00 [facility] P[facility]SE 2020 00:27:[facility] POC GLUCOSE 2020-11-06 22:49:00 Cristian, [facility] CT HEAD WO CONTRAST 2020-11-06 22:46:00 [facility] BASIC METABOLIC PANEL 2020-11-06 21:36:00 [facility] HC COMPLETE BLD COUNT 2020-11-06 21:36:00 [facility] W/AUTO DIFF PARTIAL THROMBOPLASTIN TIME 2020-11-06 21:36:00 [facility] (PTT) PROTHROMBIN TIME WITH INR 2020-11-06 21:36:00 [facility] ESTIMATED GFR 2020-11-06 21:36:00 Cristian, [facility] CT HEAD WO CONTRAST 2020-11-06 19:56:54 [facility] SODIUM LEVEL, SYRINGE 2020-11-06 18:16:00 Cristian, [facility] ARTERIAL BLOOD GAS 2020-11-06 18:16:00 Cristian, [facility] POTASSIUM, SYRINGE 2020-11-06 18:16:00 Cristian, [facility] IONIZED CALCIUM, ARTERIAL 2020-11-06 18:16:00 Cristian, [facility] HEMOGLOBIN, SYRINGE 2020-11-06 18:16:00 Cristian, [facility] GLUCOSE LEVEL, SYRINGE 2020-11-06 18:16:00 Cristian, [facility] LACTIC ACID, SYRINGE 2020-11-06 18:16:00 Cristian, [facility] MAGNESIUM LEVEL 2020-11-06 18:16:00 Cristian, [facility] [place] > 1 HOUR 2020-11-06 18:00:00 Johnathan Vinson [place] ARTERIAL BLOOD GAS, 2020-11-06 17:02:00 Cristian, [facility] CORRECTED SODIUM LEVEL, SYRINGE 2020-11-06 17:02:00 Cristian, [facility] POTASSIUM, SYRINGE 2020-11-06 17:02:00 Cristian, [facility] HEMOGLOBIN, SYRINGE 2020-11-06 17:02:00 Cristian, [facility] GLUCOSE LEVEL, SYRINGE 2020-11-06 17:02:00 [facility] IONIZED CALCIUM, ARTERIAL 2020-11-06 17:02:00 [facility] MAGNESIUM LEVEL 2020-11-06 17:02:00 [facility] LACTIC ACID LEVEL 2020-11-06 17:02:00 [facility] ARTERIAL LINE 2020-11-06 15:36:20 [facility] Lizzeth [facility] ospital Prerna CT ANGIOGRAM HEAD W WO 2020-11-06 15:16:00 Mahesh Zamora Gurwinder [facility] CONTRAST NV AN ELECTIVE ENDOTRACHEAL 2020-11-06 13:16:00 [facility] AIRWAY Prerna IMPLANTATION, DEEP BRAIN 2020-11-06 12:52:00 [facility] STIMULATOR, STAGE ONE BASIC METABOLIC PANEL 2020-11-02 21:09:00 [facility] CBC HEMOGRAM 2020-11-02 21:09:00 [facility] PARTIAL THROMBOPLASTIN TIME 2020-11-02 21:09:00 [facility] (PTT) PROTHROMBIN TIME WITH INR 2020-11-02 21:09:00 [facility] HEPATIC FUNCTION PANEL 2020-11-02 21:09:00 [facility] HCG QUALITATIVE, SERUM 2020-11-02 21:09:00 [facility] SCREEN ESTIMATED GFR 2020-11-02 21:09:00 [facility] HEMOGLOBIN A1C 2020-11-02 21:09:00 [facility] ECG PRE/POST OP 2020-11-02 20:48:01 [facility] COVID-19 QUALITATIVE RT-PCR 2020-11-02 20:37:00 [facility] CBC WITH PLATELET AND 2020-10-04 17:36:00 GodinezMichelet piña [facility] DIFFERENTIAL TROPONIN 2020-10-04 17:36:00 [facility] B NATRIURETIC PEPTIDE 2020-10-04 17:36:00 [facility] PHENYTOIN LEVEL 2020-10-04 17:36:00 [facility] HC COMPLETE BLD COUNT 2020-10-04 17:36:00 Donnell Poppy Killian [facility] W/AUTO DIFF ECG 12-LEAD 2020-10-04 16:22:39 [facility] COMPREHENSIVE METABOLIC 2020-10-04 16:20:00 [facility] PANEL ESTIMATED GFR 2020-10-04 16:20:00 [facility] HC COMPLETE BLD COUNT 2020-09-13 09:31:00 [facility] W/AUTO DIFF COMPREHENSIVE METABOLIC 2020-09-13 09:31:00 [facility] PANEL ESTIMATED GFR 2020-09-13 09:31:00 [facility] Ho spital HC COMPLETE BLD COUNT 2020-09-12 10:40:00 [facility] W/AUTO DIFF COMPREHENSIVE METABOLIC 2020-09-12 09:00:00 [facility] PANEL ESTIMATED GFR 2020-09-12 09:00:00 [facility] spital FERRITIN LEVEL 2020-09-11 09:48:00 [facility] spital TOTAL IRON BINDING CAPACITY 2020-09-11 09:48:00 [facility] CT HEAD WO CONTRAST 2020-09-11 02:15:00 [facility] XR CHEST 1 VW PORTABLE 2020-09-10 22:39:00 Yovany Van [facility] URINE CULTURE 2020-09-10 22:05:00 [facility] AND 2020-09-10 21:30:00 [facility] MICROSCOPY, WITH REFLEX TO CULTURE HCG QUALITATIVE, URINE 2020-09-10 21:30:00 , [facility] SCREEN COVID-19 QUALITATIVE RT-PCR 2020-09-10 21:24:00 Yovany Van [place] [facility] HC COMPLETE BLD COUNT 2020-09-10 19:59:00 Tu, [facility] W/AUTO DIFF COMPREHENSIVE METABOLIC 2020-09-10 19:00:00 Tu, [facility] PANEL ESTIMATED GFR 2020-09-10 19:00:00 [facility] HC COMPLETE BLD COUNT 2020-06-29 11:00:00 Leo [facility] W/AUTO DIFF FREE PHENYTOIN LEVEL 2020-06-29 11:00:00 Leo [facility] BASIC METABOLIC PANEL 2020-06-29 10:00:00 Leo [facility] MAGNESIUM LEVEL 2020-06-29 10:00:00 Mila Fitzgerald Ho spital PHOSPHORUS LEVEL 2020-06-29 10:00:00 Mila Fitzgerald H ospital PHENYTOIN LEVEL 2020-06-29 10:00:00 Mila Fitzgerald spital ESTIMATED GFR 2020-06-29 10:00:00 Mila Fitzgerald spital HC COMPLETE BLD COUNT 2020-06-28 11:00:00 Leo [facility] W/AUTO DIFF BASIC METABOLIC PANEL 2020-06-28 10:00:00 Leo [facility] MAGNESIUM LEVEL 2020-06-28 10:00:00 Mila Fitzgerald spital PHOSPHORUS LEVEL 2020-06-28 10:00:00 Mila Fitzgerald H ospital PHENYTOIN LEVEL 2020-06-28 10:00:00 Mila Fitzgerald spital FREE PHENYTOIN LEVEL 2020-06-28 10:00:00 Leo [facility] ESTIMATED GFR 2020-06-28 10:00:00 Mila Fitzgerald spital EEG AWAKE/ASLEEP LESS THAN 2020-06-27 23:27:27 [place] [facility] 41 MIN BASIC METABOLIC PANEL 2020-06-27 11:00:00 [facility] HC COMPLETE BLD COUNT 2020-06-27 11:00:00 [facility] W/AUTO DIFF MAGNESIUM LEVEL 2020-06-27 11:00:00 [facility]OS[facility] 2020-06-27 11:00:00 Mila Fitzgerald H ospital PHENYTOIN LEVEL 2020-06-27 11:00:00 [facility] FREE PHENYTOIN LEVEL 2020-06-27 11:00:00 [facility] 2020-06-27 11:00:00 Mila Fitzgerald spital SODIUM LEVEL, URINE, RANDOM 2020-06-27 03:12:00 [facility] OSMOLAL[facility], [facility]INE 2020-06-27 03:12:00 [facility] OSMOLALITY, SERUM 2020-06-27 01:10:00 [facility] HCG QUALITATIVE, URINE 2020-06-27 00:50:00 Watkins, [facility] SCREEN Pham PROTHROMBIN TIME WITH INR 2020-06-26 22:30:00 Leo, Roy [facility] PARTIAL THROMBOPLASTIN TIME 2020-06-26 22:30:00 [facility] (PTT) HC COMPLETE BLD COUNT 2020-06-26 22:30:00 [facility] W/AUTO DIFF XR ABDOMEN ACUTE INC CHEST 2020-06-26 19:54:27 [facility] HC COMPLETE BLD COUNT 2020-06-26 18:26:00 [facility] W/AUTO DIFF BASIC METABOLIC PANEL 2020-06-26 17:25:00 [facility] ESTIMATED GFR 2020-06-26 17:25:00 Mila Fitzgerald [facility] spital VENIPUNC NEED PHYS SKILL,DX 2020-06-26 16:40:22 Juanita Matthew [facility] OR RX CT HEAD WO CONTRAST 2020-06-26 05:24:53 Watkins [facility] Pham HC COMPLETE BLD COUNT 2020-06-26 03:00:00 Watkins, [facility] W/AUTO DIFF Pham PROTHROMBIN TIME WITH INR 2020-06-26 03:00:00 Roland [facility] Pham PARTIAL THROMBOPLASTIN TIME 2020-06-26 03:00:00 Watkins [facility] (PTT) Pham B NATRIURETIC PEPTIDE 2020-06-26 03:00:00 [facility] SMEAR REVIEW 2020-06-26 03:00:00 Roland [facility] Ho spital Pham COMPREHENSIVE METABOLIC 2020-06-26 02:12:00 [facility] Pham PHENYTOIN LEVEL 2020-06-26 02:12:00 Roland [facility] Ho spital Pham HC COMPLETE BLD COUNT 2020-06-25 17:53:00 Roe [facility] W/AUTO DIFF COMPREHENSIVE METABOLIC 2020-06-25 17:53:00 Roe [facility] PANEL PREALBUMIN LEVEL 2020-06-25 17:53:00 Mina Gonzáles [facility] ospital MAGNESIUM LEVEL 2020-06-25 17:53:00 [facility] PHOSPHORUS LEVEL 2020-06-25 17:53:00 Mina Gonzáles [facility] ospital FREE PHENYTOIN LEVEL 2020-06-25 17:53:00 Mina Gonzáles [facility] ESTIMATED GFR 2020-06-25 17:53:00 Mina Gonzáles [facility] spital ACHR ABS, TITIN AB, STM ABS 2020-06-25 17:53:00 [facility] RFLX PANEL STRIATED MUSCLE ABS, IGG 2020-06-25 17:53:00 [facility] TITER COVID-19 QUALITATIVE RT-PCR 2020-06-25 16:39:00 [facility] BASIC METABOLIC PANEL 2020-06-22 20:58:00 [facility] PARTIAL THROMBOPLASTIN TIME 2020-06-22 20:58:00 [facility] Hospital[facility]ilee on [facility] (PTT) PROTHROMBIN TIME WITH INR 2020-06-22 20:58:00 [facility] CBC HEMOGRAM 2020-06-22 20:58:00 [facility] HEMOGLOBIN A1C 2020-06-22 20:58:00 [facility] ESTIMATED GFR 2020-06-22 20:58:00 [facility] CT ABDOMEN PELVIS W 2020-06-19 07:41:06 [facility] CONTRAST COVID-19 QUALITATIVE RT-PCR 2020-06-19 06:31:00 [facility] HC COMPLETE BLD COUNT 2020-06-19 06:31:00 [facility] W/AUTO DIFF COMPREHENSIVE METABOLIC 2020-06-19 06:31:00 [facility] PANEL LIPASE LEVEL 2020-06-19 06:31:00 [facility] ESTIMATED GFR 2020-06-19 06:31:00 [facility] URINE CULTURE 2020-06-19 05:56:00 [facility] URINALYSIS SCREEN AND 2020-06-19 05:56:00 [facility] MICROSCOPY, WITH REFLEX TO CULTURE HCG QUALITATIVE, URINE 2020-06-19 05:56:00 [facility] SCREEN COVID-19 QUALITATIVE RT-PCR 2020-05-02 22:10:00 [facility] URINE CULTURE 2020-05-02 21:51:00 [facility] Daniel [facility] CT HEAD WO CONTRAST 2020-05-02 21:47:02 [facility] COMPLETE BLD COUNT 2020-05-02 21:30:00 CruzDaniel [facility] W/AUTO DIFF HCG QUALITATIVE, SERUM 2020-05-02 21:30:00 [facility]Daniel [facility] S[facility] BASIC METABOLIC PANEL 2020-05-02 21:30:00 [facility]Daniel [facility] ESTIMATED GFR 2020-05-02 21:30:00 [facility] SMEAR REVIEW 2020-05-02 21:30:00 [facility] URINALYSIS SCREEN AND 2020-05-02 21:28:00 Cruz [facility] MICROSCOPY, WITH REFLEX TO CULTURE POC GLUCOSE 2020-04-06 22:27:00 [facility] RIBONUCLEOPROTEIN ANTIBODY 2020-04-06 21:50:00 [facility] (CALCULATOR OPERATOR ANTIBODY) [facility] DOUBLE-STRANDED DNA (DSDNA) 2020-04-06 21:50:00 [facility] ANTIBODIES, CRITHIDIA [facility] CENTROMERE ANTIBODY 2020-04-06 21:50:00 [facility] POTASSIUM LEVEL 2020-04-05 22:40:00 [facility] HOMOCYSTINE, PLASMA 2020-04-05 22:40:00 [facility] EEG AWAKE/DROWSY LESS THAN 2020-04-05 16:03:26 [facility] 41 MIN HC COMPLETE BLD COUNT 2020-04-05 09:00:00 Caesar Maxwell [facility] W/AUTO DIFF VITAMIN B12 LEVEL 2020-04-05 09:00:00 [facility] C-REACTIVE PROTEIN 2020-04-05 09:00:00 [facility] HOMOCYSTINE, PLASMA 2020-04-05 09:00:00 [facility] RHEUMATOID FACTOR 2020-04-05 09:00:00 [facility] THYROID STIMULATING HORMONE 2020-04-05 09:00:00 [facility] T4, FREE 2020-04-05 09:00:00 [facility] spital T3 2020-04-05 09:00:00 Dilciaerani, [facility] spital SYPHILIS TREPONEMA SCREEN 2020-04-05 09:00:00 [facility] WITH RPR CONFIRMATION (REVERSE ALGORITHM) HIV AG/AB COMBINATION 2020-04-05 09:00:00 [facility] VITAMIN D 25 HYDROXY LEVEL 2020-04-05 09:00:00 [facility] BASIC METABOLIC PANEL 2020-04-05 09:00:00 [facility] FOLATE LEVEL 2020-04-05 09:00:00 [facility] MAGNESIUM LEVEL 2020-04-05 09:00:00 Caesar Maxwell ospital ESTIMATED GFR 2020-04-05 09:00:00 Alissa [facility] COVID-19 QUALITATIVE RT-PCR 2020-04-05 03:52:[address] [facility] [address] HEAD WO CONTRAST 2020-04-05 02:17:59 [facility] HEMOGRAM 2020-04-05 02:00:00 [facility] SEDIMENTATION RATE 2020-04-05 02:00:00 [facility] URINE CULTURE 2020-04-05 01:52:00 [facility] KEPPRA (LEVETIRACETAM) 2020-04-05 01:15:00 [facility] LEVEL URINALYSIS SCREEN AND 2020-04-05 00:19:00 [facility] MICROSCOPY, WITH REFLEX TO CULTURE URINE DRUGS OF ABUSE SCREEN 2020-04-05 00:19:00 [facility] PROLACTIN LEVEL 2020-04-05 00:07:00 [facility] ECG 12-LEAD 2020-04-05 00:02:38 [facility] CRITICAL CARE 2020-04-04 23:48:10 [facility] COMPREHENSIVE METABOLIC 2020-04-04 23:33:00 [facility] PANEL LACTIC ACID LEVEL, SEPSIS - 2020-04-04 23:33:00 [facility] NOW AND REPEAT 2X EVERY 3 HOURS MAGNESIUM LEVEL 2020-04-04 23:33:00 [facility] PHOSPHORUS LEVEL 2020-04-04 23:33:00 [facility] ESTIMATED GFR 2020-04-04 23:33:00 [facility] PET BRAIN METABOLIC EVAL 2020-03-30 18:51:58 Richard Huizar [facility] POC GLUCOSE 2020-03-30 17:29:00 [facility] MRI BRAIN W WO CONTRAST 2020-03-27 18:50:00 [facility] MONITORED VIDEO-EEG 60 HRS 2020-03-15 17:14:01 [facility] 1 MIN-74 HRS MONITORED W VIDEO DAILY 2020-03-15 05:12:21 [facility] MONITORED W VIDEO DAILY 2020-03-14 05:24:17 [facility] EEG SETUP 2020-03-13 05:17[facility] COMPLETE BLD COUNT 2020-03-12 19:18:00 [facility] W/AUTO DIFF COMPREHENSIVE METABOLIC 2020-03-12 19:18:00 [facility] PANEL ESTIMATED GFR 2020-03-12 19:18:00 [facility] MAGNESIUM LEVEL 2020-03-12 19:18:00 Gaye [facility] Ho spital CT HEAD WO CONTRAST 2020-03-12 18:25:51 [facility] COVID-19 QUALITATIVE RT-PCR 2020-03-12 16:53:00 [facility] Plan of Care Planned Activity Planned Date Details Comments Source Future Scheduled Test COVID-19 VACCINE (1) [facility] [code = COVID-19 VACCINE (1)] Future Scheduled Test Hepatitis C screening [facility] (procedure) [code = 067138668] Future Scheduled Test Screening for [facility] malignant neoplasm of cervix (procedure) [code = 125523184] Future Scheduled Test INFLUENZA VACCINE [facility] [code = INFLUENZA VACCINE] Encounters Start End Encounter Admission Attending Care Care Encounter Source Date/Time Date/Time Type Type Clinicians Facility Department ID 2021-01-29 2021-01-29 Refill Niki, 1.2.840.1 [id number] Methodi 00:00:00 00:00:00 Maria E Dotson 30013.1.[address] 3.430.2.7 Hospit a .3.709299 l .8 2021-01-25 2021-01-25 Telephone Rafael 1.2.840.1 [id number] Methodi 00:00:00 00:00:[address] 3.430.2.7 Hospit a .3.847796 l .8 2021-01-15 2021-01-15 Telephone Richard Huizar 1.2.840.1 [id number] Methodi 00:00:00 00:00:[address] 3.430.2.7 Hospit a .3.796055 l .8 2021-01-07 2021-01-07 Telephone Niki 1.2.840.1 [id number] Methodi 00:00:00 00:00:00 Maria E Dotson 39686.1.[address] 3.430.2.7 Hospit a .3.334326 l .8 2021-01-07 2021-01-07 Travel 1.2.840.1 1.2.027.243 7364 106587 Methodi 00:00:00 00:00:[address] 3.430.2.7 0.2.7.3.698 Ho spita .3.455909 084.8 l .8 2020-12-06 2020-12-06 Travel 1.2.840.1 1.2.267.786 6465 034263 Methodi 00:00:00 00:00:[address] 3.430.2.7 0.2.7.3.698 Ho spita .3.301631 084.8 l .8 2020-11-29 2020-11-29 Clinical 1.2.840.1 [id number] Methodi 12:19:22 12:19:[address] 3.430.2.7 Hospit a .3.892145 l .8 2020-11-29 2020-11-29 Office Richard Huizar 1.2.840.1 [id number] 21 [id number] Methodi 09:43:47 10:44:[address] 3.430.2.7 Hospit a .3.974498 l .8 2020-11-29 2020-11-29 Outpatient RICHARD HUIZAR [facility] [id number] [id number] [place] 00:00:00 00:00:[address] 2020-11-29 2020-11-29 Outpatient [facility] [id number] [place] 00:00:00 00:00:[address] 2020-11-29 2020-11-29 Travel 1.2.840.1 1.2.491.924 1456 [id number] Methodi 00:00:00 00:00:[address] 3.430.2.7 0.2.7.3.698 Ho spita .3.342652 084.8 l .8 2020-11-20 2020-11-20 Travel 1.2.840.1 1.2.846.675 8013 316397 Methodi 00:00:00 00:00:[address] 3.430.2.7 0.2.7.3.698 Ho spita .3.240809 084.8 l .8 2020-11-20 2020-11-20 Telephone Magui David 1.2.840.114 [id number] 00:00:00 00:00:00 ent, Idris Aden 350.1.13.10 [facility] 4.2.7.2.686 [id number] 184 2020-11-15 2020-11-15 Transition ELVIA Damian 1.2.840.114 847 63601 00:00:00 00:00:00 of Care Fanny ADEN 350.1.13.10 [facility] 4.2.7.2.686 [id number] 082 2020-11-13 2020-11-13 Travel 1.2.840.1 1.2.531.994 5207 [id number] Methodi 00:00:00 00:00:[address] 3.430.2.7 0.2.7.3.698 Ho spita .3.304326 084.8 l .8 2020-11-06 2020-11-09 Hospital Marilee Foster 1.2.840.1 [id number] 2 [id number] Methodi 06:59:00 16:22:00 Encounter Leeann 63200.1.[address] 3.430.2.7 Hospit a .3.352369 l .8 2020-11-06 2020-11-09 Inpatient MARILEE FOSTER [facility] 018 2100 [id number] [place] 00:00:00 00:00:[address] 2020-11-02 2020-11-08 Pre-Admiss Marilee Foster 1.2.840.1 [id number] Methodi 15:00:56 14:25:19 ion Leeann 81172.1.[address] Testing 3.430.2.7 Hospit a .3.040909 l .8 2020-11-06 2020-11-06 Anesthesia Ramos Reyes 1.2.840.1 [id number] Methodi 07:52:00 16:31:00 Event Arlene Brumfield 25122.1.[address] 3.430.2.7 Hospit a .3.901455 l .8 2020-11-06 2020-11-06 Surgery Cristian, Marilee 1.2.840.1 [id number] 21 [id number] Methodi 08:00:00 16:00:[address] 3.430.2.7 Hospit a .3.083322 l .8 2020-11-062020-11-06 Travel 1.2.840.1 1.2.795.834 2334 009823 Methodi 00:00:00 00:00:[address] 3.430.2.7 0.2.7.3.698 Ho spita .3.318466 084.8 l .8 2020-11-02 2020-11-02 Outpatient CRISTIAN MARILEE [facility] 393 [id number] [place] 00:00:00 00:00:[address] 2020-11-02 2020-11-02 Travel 1.2.840.1 1.2.332.395 0841 076836 Methodi 00:00:00 00:00:[address] 3.430.2.7 0.2.7.3.698 Ho spita .3.094192 084.8 l .8 2020-10-31 2020-10-31 Travel 1.2.840.1 1.2.072.816 8734 494942 Methodi 00:00:00 00:00:[address] 3.430.2.7 0.2.7.3.698 Ho spita .3.008484 084.8 l .8 2020-10-23 2020-10-23 Transition ELVIA Damian 1.2.840.114 842 [id number] 00:00:00 00:00:00 of Care Fanny ADEN 350.1.13.10 [facility] 4.2.7.2.686 [id number] 082 2020-10-16 2020-10-16 Telephone Niki, 1.2.840.1 [id number] 2099 [id number] Methodi 00:00:00 00:00:00 Daydarryl A 35787.1.[address] 3.430.2.7 Hospit a .3.362663 l .8 2020-10-04 2020-10-04 Emergency Donnell, 1.2.840.1 [id number] 2099 [id number] Methodi 11:19:00 14:27:00 Poppy Daily 62217.1.1 400 [address] t 3.430.2.7 Hospit a .3.034232 l .8 2020-10-04 2020-10-04 Office Richard Huizar 1.2.840.1 [id number] Methodi 09:39:04 10:21:[address] 3.430.2.7 Hospit a .3.761166 l .8 2020-10-04 2020-10-04 Outpatient RICHARD HUIZAR [facility] 843 [id number] [place] 00:00:00 00:00:[address] 2020-10-04 2020-10-04 Emergency DONNELL, [facility] 064 [id number] 60 [place] 00:00:00 00:00:00 POP[address] [facility] 2020-10-04 2020-10-04 Telephone Niki, 1.2.840.1 [id number] 2099 [id number] Methodi 00:00:00 00:00:00 Day[address]on 51473.1.[address] 3.430.2.7 Hospit a .3.348548 l .8 2020-10-04 2020-10-04 Telephone Rafael 1.2.840.1 [id number] 894 [id number] Methodi 00:00:00 00:00:[address] 3.430.2.7 Hospit a .3.371668 l .8 2020-10-04 2020-10-04 Travel 1.2.840.1 1.2.485.460 2152 911452 Methodi 00:00:00 00:00:[address] 3.430.2.7 0.2.7.3.698 Ho spita .3.553011 084.8 l .8 2020-10-03 2020-10-03 Orders Marilee Foster 1.2.840.1 [id number] Methodi 00:00:00 00:00:00 Only Leeann 75854.1.[address] 3.430.2.7 Hospit a .3.302880 l .8 2020-10-01 2020-10-01 Telephone Rafael 1.2.840.1 [id number] 919 [id number] Methodi 00:00:00 00:00:[address] 3.430.2.7 Hospit a .3.760575 l .8 2020-10-01 2020-10-01 Travel 1.2.840.1 1.2.605.415 7096 904892 Methodi 00:00:00 00:00:[address] 3.430.2.7 0.2.7.3.698 Ho spita .3.541657 084.8 l .8 2020-09-28 2020-09-28 Telephone Jojo Cruz 1.2.840.1 [id number] 2 [id number] Methodi 00:00:00 00:00:[address] 3.430.2.7 Hospit a .3.764185 l .8 2020-09-26 2020-09-26 Office Marilee Foster 1.2.840.1 [id number] 21 [id number] Methodi 11:29:57 12:34:50 Visit Leeann 81470.1.[address] 3.430.2.7 Hospit a .3.564792 l .8 2020-09-26 2020-09-26 Outpatient MARILEE FOSTER [facility] 538 [id number] [place] 00:00:00 00:00:[address] 2020-09-25 2020-09-25 Travel 1.2.840.1 1.2.184.923 8258 418014 Methodi 00:00:00 00:00:[address] 3.430.2.7 0.2.7.3.698 Ho spita .3.044295 084.8 l .8 2020-09-21 2020-09-21 Travel 1.2.840.1 1.2.959.810 5918 506628 Methodi 00:00:00 00:00:[address] 3.430.2.7 0.2.7.3.698 Ho spita .3.393436 084.8 l .8 2020-09-19 2020-09-19 Transition ELVIA Damian 1.2.840.114 833 81376 00:00:00 00:00:00 of [facility] Fanny ADEN 350.1.13.10 [facility] 4.2.7.2.686 [id number] 082 2020-09-10 2020-09-13 [facility] TishYovany pro 1.2.840.1 76378 1210 [id number] Methodi 14:00:00 15:51:00 Encounter Rosalie Bailey 45948.1.[address] 3.430.2.7 Hospit a .3.857215 l .8 2020-09-10 2020-09-13 Inpatient ARYA [facility] [id number] [place] [address] 00:00:00 00:00:00 ROSALIE [address] 2020-09-10 2020-09-10 Telephone Rafael, 1.2.840.1 [id number] Methodi 00:00:00 00:00:[address] 3.430.2.7 Hospit a .3.929681 l .8 2020-09-10 2020-09-10 Telephone Niki, 1.2.840.1 [id number] 2099 [id number] Methodi 00:00:00 00:00:00 Day[address] 3.430.2.7 Hospit a .3.671298 l .8 2020-09-10 2020-09-10 Travel 1.2.840.1 1.2.902.399 3740 774859 Methodi 00:00:00 00:00:[address] 3.430.2.7 0.2.7.3.698 Ho spita .3.335440 084.8 l .8 2020-09-05 2020-09-05 Travel 1.2.840.1 1.2.276.693 5781 932523 Methodi 00:00:00 00:00:[address] 3.430.2.7 0.2.7.3.698 Ho spita .3.674853 084.8 l .8 2020-09-04 2020-09-04 Patient Carlo [facility] 1.2.840.114 [id number] 00:00:00 00:00:00 Outreach [facility] 350.1.13.10 [facility] 4.2.7.2.686 [place] [id number] 388 2020-08-22 2020-08-22 Telephone Rafael, 1.2.840.1 [id number] 097 [id number] Methodi 00:00:00 00:00:[address] 3.430.2.7 Hospit a .3.222704 l .8 2020-08-21 2020-08-21 Orders Richard Huizar 1.2.840.1 [id number] 21 [id number] Methodi 00:00:00 00:00:[address] 3.430.2.7 Hospit a .3.658724 l .8 2020-08-16 2020-08-16 Refill Niki, 1.2.840.1 [id number] 9264 Methodi 00:00:00 00:00:00 Dayahna A 84476.1.[address] 3.430.2.7 Hospit a .3.910776 l .8 2020-07-26 2020-07-26 [facility] Darvin Daily 1.2.840.114 8 [id number] 09:42:44 23:59:[address] [facility] 4.2.7.2.686 [id number] 184 2020-06-25 2020-06-29 [facility] Frank Alvarado 1.2.840.1 [id number] Methodi 18:50:00 13:41:00 Encounter Gonzalo Watkins 48583.1.[address] Lisa Parmjit 3.430.2.7 Ho madhuri Leo Mila .3.414540 l .8 2020-06-25 2020-06-29 Inpatient LEO [facility] 064 [id number] 43795 [place] 00:00:00 00:00:00 MILA [address] 2020-06-25 2020-06-25 [facility] [id number] Methodi 09:44:35 11:13:06 Visit Ray 41953.1.[address] 3.430.2.7 Hospit a .3.822808 l .8 2020-06-25 2020-06-25 [facility] 1.2.840.[facility] [id number] 38148 43418 Methodi 10:39:12 10:44:[address] 3.430.2.7 Hospit a .3.142806 l .8 2020-06-25 2020-06-25 Outpatient [facility] [id number] [place] 00:00:00 00:00:00 RAY [address] 2020-06-25 2020-06-25 Outpatient [facility] [id number] [place] 00:00:00 00:00:[address] RAY [address] 2020-06-25 2020-06-25 Travel 1.2.840.1 1.2.538.292 6918 706098 Methodi 00:00:00 00:00:[address] 3.430.2.7 0.2.7.3.698 Ho nathalyta .3.227159 084.8 l .8 2020-06-22 2020-06-22 Pre-Admiss Marilee Foster 1.2.840.1 [id number] Methodi 14:12:49 15:12:49 ion Leeann 59164.1.[address] Testing 3.430.2.7 Hospit a .3.796797 l .8 2020-06-22 2020-06-22 Outpatient MARILEE FOSTER [facility] 197 [id number] [place] 00:00:00 00:00:[address] 2020-06-22 2020-06-22 Travel 1.2.840.1 1.2.472.684 2714 532460 Methodi 00:00:00 00:00:[address] 3.430.2.7 0.2.7.3.698 Ho spita .3.584644 084.8 l .8 2020-06-21 2020-06-21 [facility] 1.2.840.3 [id number] Methodi 00:00:00 00:00:[address] 3.430.2.7 Hospit a .3.636214 l .8 2020-06-18 2020-06-19 Emergency [facility], 1.2.840.1 [id number] 2100 [id number] Methodi 19:55:00 04:34:00 Beloren Jacob 95998.1.[address] 3.430.2.7 Hospit a .3.086656 l .8 2020-06-18 2020-06-19 [facility] [id number] 13 [place] 00:00:00 00:00:00 BEAU [address] 2020-06-18 2020-06-18 Travel 1.2.840.1 1.2.590.363 4934 079226 Methodi 00:00:00 00:00:[address] 3.430.2.7 0.2.7.3.698 Ho spita .3.831192 084.8 l .8 2020-06-06 2020-06-06 Orders Marilee Foster 1.2.840.1 [id number] Methodi 00:00:00 00:00:00 Only Leeann 58767.1.[address] 3.430.2.7 Hospit a .3.818697 l .8 2020-05-15 2020-05-15 Office Marilee Foster 1.2.840.1 [id number] 21 [id number] Methodi 09:56:11 11:01:42 Visit Leeann 75999.1.[address] 3.430.2.7 Hospit a .3.504262 l .8 2020-05-15 2020-05-15 Outpatient MARILEE FOSTER [facility] 063 [id number] [place] 00:00:00 00:00:[address] 2020-05-14 2020-05-14 Travel 1.2.840.1 1.2.356.001 7476 041565 Methodi 00:00:00 00:00:[address] 3.430.2.7 0.2.7.3.698 Ho spita .3.929989 084.8 l .8 2020-05-02 2020-05-02 Emergency [facility], 1.2.840.1 [id number] 2100 844013 Methodi 14:29:00 18:04:00 Danielori Martini 56085.1.1 [address] t 3.430.2.7 Hospit a .3.844907 l .8 2020-05-02 2020-05-02 Telephone Richard Huizar 1.2.840.1 [id number] Methodi 00:00:00 00:00:[address] 3.430.2.7 Hospit a .3.387429 l .8 2020-05-02 2020-05-02 Emergency [facility] 064 [id number] 68 [place] 00:00:00 00:00:00 DANIEL [address] 2020-04-27 2020-04-27 Travel 1.2.840.1 1.2.628.771 7149 477036 Methodi 00:00:00 00:00:[address] 3.430.2.7 0.2.7.3.698 Ho spita .3.001109 084.8 l .8 2020-04-26 2020-04-26 Office Richard Huizar 1.2.840.1 [id number] 21 [id number] Methodi 09:34:30 10:44:[address] 3.430.2.7 Hospit a .3.628000 l .8 2020-04-26 2020-04-26 Travel 1.2.840.1 1.2.980.497 0428 783067 Methodi 00:00:00 00:00:[address] 3.430.2.7 0.2.7.3.698 Ho spita .3.460148 084.8 l .8 2020-04-26 2020-04-26 Outpatient RICHARD HUIZAR [facility] 127 [id number] [place] 00:00:00 00:00:[address] 2020-04-12 2020-04-12 Telephone Richard Huizar 1.2.840.1 [id number] Methodi 16:15:00 16:30:[address] 3.430.2.7 Hospit a .3.171782 l .8 2020-04-09 2020-04-09 Patient Darren, 1.2.840.1 [id number] Methodi 00:00:00 00:00:00 Outreach Shyanne 45204.1.[address] 3.430.2.7 Hospit a .3.995922 l .8 2020-04-04 2020-04-07 [facility] 1.2.840.1 94125 1210 [id number] Methodi 18:05:00 17:42:00 Encounter Caesar Maxwell 91294.1.[address] Ninfa Kaylahdebo 3.430.2.7 H ospita .3.764881 l .8 2020-04-04 2020-04-07 Inpatient SAADIAJOSE MARTIN [facility] 064 [id number] 14 [place] 00:00:00 00:00:00 YAHYA [address] 2020-04-06 2020-04-06 Telephone Richard Huizar 1.2.840.1 [id number] Methodi 00:00:00 00:00:[address] 3.430.2.7 Hospit a .3.626156 l .8 2020-03-30 2020-03-30 [facility] 1.2.840.1 [id number] 2 [id number] Methodi 09:20:00 23:59:[address] 3.430.2.7 Hospit a .3.771786 l .8 2020-03-30 2020-03-30 [facility] 1.2.840.1 [id number] Methodi 00:00:00 00:00:[address] 3.430.2.7 Hospit a .3.429518 l .8 2020-03-30 2020-03-30 Travel 1.2.840.1 1.2.304.182 6392 314695 Methodi 00:00:00 00:00:[address] 3.430.2.7 0.2.7.3.698 Ho spita .3.385843 084.8 l .8 2020-03-30 2020-03-30 Outpatient [facility] 513 [id number] [place] 00:00:00 00:00:[address] 2020-03-27 2020-03-27 [facility]patient [facility] 859 [id number] [place] 00:00:00 00:00:[address] 2020-03-27 2020-03-27 Travel 1.2.840.1 1.2.149.690 0966 230852 Methodi 00:00:00 00:00:[address] 3.430.2.7 0.2.7.3.698 Ho spita .3.815470 084.8 l .8 2020-03-12 2020-03-15 [facility] 1.2.840.1 [id number] 2 [id number] Methodi 09:53:00 12:25:[address] 3.430.2.7 Hospit a .3.284694 l .8 2020-03-15 2020-03-15 Travel 1.2.840.1 1.2.140.096 1886 153709 Methodi 00:00:00 00:00:[address] 3.430.2.7 0.2.7.3.698 Ho spita .3.718562 084.8 l .8 2020-03-12 2020-03-15 Inpatient RICHARD HUIZAR [facility] 016 2099 [id number] [place] 00:00:00 00:00:[address] 2020-03-14 2020-03-14 Orders Prince, 1.2.840.1 [id number] 6937 Methodi 00:00:00 00:00:00 Only Maria E Dotson 65458.1.[address] 3.430.2.7 Hospit a .3.014663 l .8 2020-03-12 2020-03-12 Orders Pinky Huizart 1.2.840.1 [id number] 21 [id number] Methodi 00:00:00 00:00:[address] 3.430.2.7 Hospit a .3.059557 l .8 2020-03-08 2020-03-08 Telephone Richard Huizar 1.2.840.1 [id number] Methodi 00:00:00 00:00:[address] 3.430.2.7 Hospit a .3.847898 l .8 2020-02-17 2020-02-17 Telephone Richard Huizar 1.2.840.1 [id number] Methodi 00:00:00 00:00:[address] 3.430.2.7 Hospit a .3.947541 l .8 2020-02-16 2020-02-16 Telemedici Richard Huizar 1.2.840.1 [id number] Methodi 14:21:35 14:36:[address] 3.430.2.7 Hospit a .3.680648 l .8 2020-02-16 2020-02-16 Outpatient RICHARD HUIZAR [facility] 306 [id number] [place] 00:00:00 00:00:[address] 2020-02-14 2020-02-14 Telephone Richard Huizar 1.2.840.1 [id number] Methodi 00:00:00 00:00:[address] 3.430.2.7 Hospit a .3.877983 l .8 2019-11-12 2019-11-15 Inpatient LIANA [facility] [id number] [place] 00:00:00 00:00:00 [facility] [id number] Results Test Description Test Time Test Comments Results Result Sourc e Comments OR [place] > I Hour 2020-12-10 EXAMINATION: OR Meth odist 15:23:16 [place] > 1 HOUR [facility] fluoroscopy was requested in OR. Location: [facility] OR 12 Procedure: DEEP BRAIN STIMULATOR INS Start: 1145 End: 1300 Fluoro Time: 7.83sec mGy: 54.84 IMPRESSION: Intraoperative fluoroscopic images. Radiologist was not present during the examination.Separa te operative report will be issued by the physician performing the procedure. [id number] Interface, Radiology Results 12/10/2020 10:26 AM CDT EXAMINATI ON: OR [place] > 1 HOURC-arm fluoroscopy was requested in OR. Location: [facility] OR 12 Procedure: DEEP BRAIN STIMULATOR INS Start: 1145 End: 1300 Fluoro Time: 7.83sec mGy: 54.84IMPRESSION:In traoperative fluoroscopic images. Radiologist was not present during the examination.Separa te operative report will be issued by the physician performing the procedure.[id number] POC glucose 2020-11-09 01:01:28 Test Item Value Reference Range Interpretation Comme nts POC glucose (test code = 79365-2) 169 mg/dL 65-99 H Lab Interpretation (test code = 81116-3) [id number] 09:34:20EXAM: CT HEAD WO CONTRAST CLINICAL HISTORY: Right frontal ICH around DBS TECHNIQUE: Noncontrast enhanced images of the brain were obtained from the skull base to the vertex. Both soft tissue and bone reconstruction algorithms were performed. CT scans are performed using radiation dose reduction techniques (iterative reconstruction and/or automated exposure control). Technical factors are evaluated and adjusted to ensure appropriate moderation of exposure. Automated dose management technology is applied to adjust radiation exposure while achieving a diagnostic quality image. COMPARISON: 11/06/2020. FINDINGS: It is important to note that imaging is moderately degraded secondary to motion related artifact. Taking this into consideration, there is redemonstration of bilateral supratentorial approach deep brain stimulators, not significantly changed in positioning from most recent prior examination. Associated beam hardening artifact is present. There is a mild amount of crescentic intraparenchymal hemorrhage right lateral of the right subthalamic probe, not significantly changed from the prior examination. Subtle left anterior parafalcine hemorrhage is again seen. Subtle left frontal subdural pn eumocephalus again seen. The edmondson-white matter differentiation is otherwise preserved and without evidence of acute territorial infarction. No obstructive hydrocephalus. Orbits are unremarkable. Minimal/mild secretions and mucosal thickening seen dependently within the left maxillary sinus. Remainingsinuses are clear. Mastoid air cells are normally pneumatized. Osseous structures are intact. IMPRESSION: It is important to note that imaging is moderately degraded secondary to motion related artifact. Taking this into consideration, findings are not significantly changed as detailed above. [id number] Interface, Radiology Results Incoming - 2020 4:37 AM CDT EXAM: CT HEAD WO CONTRASTCLINICAL HISTORY: Right frontal ICH around DBSTECHNIQUE: Noncontrast enhanced images of the brain were obtained from the skull base to the vertex. Both soft tissue and bone reconstruction algorithms were performed. CT scans are performed using r adiation dose reduction techniques (iterative reconstruction and/or automated exposure control). Technical factors are evaluated and adjusted to ensure appropriate moderation of exposure. Automated dose management technology is applied to adjust radiation exposure while achieving a diagnostic quality i mage.COMPARISON: 11/06/2020.FINDINGS:It is important to note that imaging is moderately degraded secondary to motion related artifact.Taking this into consideration, there is redemonstration of bilateral supratentorial approach deep brain stimulators, not significantly changed in positioning from mostrecent prior examination. Associated beam hardening artifact is present.There is a mild amount of crescentic intraparenchymal hemorrhage right lateral of the right subthalamic probe, not significantly changed from the prior examination.Subtle left anterior parafalcine hemorrhage is again seen.Subtle left frontal subdural pneumocephalus again seen.The edmondson-white matter differentiation is otherwise preserved and without evidence of acute territorial infarction. No obstructive hydrocephalus.Orbits are unremarkable. Minimal/mild secretions and mucosal thickening seen dependently within the left maxillary sinus. Remaining sinuses are clear. Mastoid air cells are normally pneumatized. Osseous structures are intact.IMPRESSION:It is important to note that imaging is moderately degraded secondary to motion related artifact.Taking this into consideration, findings are not significantly changed as detailed above.[id number] Arterial blood [id number] 18:26:00 Test Item Value Reference Range Interpretation Comments pH, arterial (test code 7.35-7.45 = 2744-1) pCO2, arterial (test See_Comment [Autom ated code = 2018-) message] The system which generated this result transmitted reference range : 35 - 45 mmHg. The reference range was not used to interpret this result as normal/abnormal . pO2, arterial (test See_Comment H [Automa vandana code = 2703-7) message] The system which generated this result transmitted reference range : 80 - 90 mmHg. The reference range was not used to interpret this result as normal/abnormal . Bicarbonate, arterial 23.7 mmol/L 21.0-28.0 (test code = 1960-4) Base excess, arterial See_Comment [Auto mated (test code = 1925-7) message ] The system which generated this result transmitted reference range : -2 - 2 mEq/L. The reference range was not used to interpret this result as normal/abnormal . O2 saturation, arterial 100 % 95-100 (test code = 2708-6) Lab Interpretation Abnormal (test code = 98401-8) [facility], qhcpglo8699-78-09 18:26:00 Test Item Value Reference Range Interpretation Comments Glucose, syringe (test code = 109 mg/dL 65-99 H 2345-7) Lab Interpretation (test code = Abnormal 49842-8) [facility] HospitalHemoglobin, sfkomvk8482-25-26 18:26:00 Test Item Value Reference Range Interpretation Comments Hemoglobin, syringe (test code = 9.5 g/dL 12.0-16.0 L 718-7) Lab Interpretation (test code = Abnormal 78807-5) [facility] HospitalIonized calcium, imxoxepq7131-15-94 18:26:00 Test Item Value Reference Range Interpretation Comments Ionized calcium, arterial (test 0.98 mmol/L 1.11-1.32 L code = 82978-0) Lab Interpretation (test code = Abnormal 80438-9) [facility] HospitalLactic acid, exjrvus4562-76-72 18:26:00 Test Item Value Reference Range Interpretation Comments Lactic acid, syringe (test code = 0.8 mmol/L 0.5-2.2 44436-7) [facility] HospitalPotassium, lsuthvn3517-49-20 18:26:00 Test Item Value Reference Range Interpretation Comments Potassium, syringe (test See_Comment L [A utomated message] code = 2007) The system [employer] generated this result transmitted ref erence range: 3.5 - 5. 0 mEq/L. The refe rence range was not u sed to interpret this result as normal/abnor mal. Lab Interpretation (test Abnormal code = 66589-5) [facility] Instituteodium level, yztattn9242-74-55 18:26:00 Test Item Value Reference Range Interpretation Comments Sodium, syringe (test See_Comment [Auto mated message] The code = 2947-0) system which generated this result tra nsmitted reference range : 135 - 148 mEq/L. The refe rence range was not used to interpret this result as normal/abnormal . [facility] HospitalArterial blood gas, lqlhmreff8384-67-11 17:18:42 Test Item Value Reference Range Interpretation Comments pH, arterial (test code 7.35-7.45 H = 2744-1) pCO2, arterial (test See_Comment L [Autom ated message] code = 2019-8) The system [facility] generated this result transmitted ref erence range: 35 - 45 mmHg. The reference r greer was not used to interpret this result as normal/abnor mal. pO2, arterial (test code See_Comment H [A utomated message] = 2703-7) The system [facility] generated this result transmitted ref erence range: 80 - 90 mmHg. The reference r greer was not used to interpret this result as normal/abnor mal. Temperature, Celsius Degrees C (test code = 8310-5) O2 saturation, arterial 99 % 95-100 (test code = 2708-6) pH, arterial corrected (test code = 84953-9) pCO2, arterial corrected mmHg (test code = 81614-4) pO2, arterial corrected mmHg (test code = 12166-0) Base excess, arterial See_Comment [Auto mated message] (test code = 1925-7) The sys tem which generated this result transmitted ref erence range: -2 - 2 m Eq/L. The reference r greer was not used to interpret this result as normal/abnor mal. Lab Interpretation (test Abnormal code = 34863-4) [facility] HospitalArterial utke7144-42-87 15:36:20Lizzeth Pierson, POLE CLASSIFIER 11/06/2020 10:36 AMArterial line Patient Location: ORStart [...] tolerated the procedure well with no immediate complicationsMemorial [facility] Hospital CTA Head W Wo Chjowyzy9433-91-80 15:29:00EXAMINATION: CT ANGIOGRAM HEAD W WO CONTRAST COMPARISON: None CLINICAL HISTORY: Intraoperative Evaluation with Leksell Frame COMMENTS: Axial noncontrast and postcontrast CT scan slices the head were obtained. Postprocessing for angiographic evaluation including 3-D reconstructions was obtained. There is an overlying metallic surgical foramen place. CT imaging was performed with iterative reconstruction technique and/or automated exposure control to reduce radiation dose. FINDINGS: Air-fluid le mark is suspected in the left maxillary sinus. The brain shows no definite acute hemorrhage or mass effect. The internal carotid arteries show no significant stenosis. Right-sided posterior communicating artery is identified. The basilar artery shows no significant stenosis. The proximal cerebral arteries show no definite focal stenosis. The overall visualization is suboptimal. The metallic artifact is most intense at the skull base. IMPRESSION: No obvious arterial lesion on limited CTA. There is continued clinical concern, correlation with DSA angiography is recommended. [id number] Interface, Radiology Results 11/06/2020 10:32 AM CDT [...] carotid arteries show no significant stenosis. Right-sided posteriorcommunicating artery is identified.The basilar artery shows no significant stenosis.The proximal cerebral arteries show no definite focal stenosis.The overall visualization is suboptimal. The metallic a rtifact is most intense at the skull base.IMPRESSION: No obvious arterial lesion on limited CTA. There is continued clinical concern, correlation with DSA angiography is recommended.[id number]-[id number] Medical CenterAbykcwoxAmcmzs6672-22-44 13:16:00Lizzeth Pierson CRNA 11/06/2020 10:35 AMAirway Date/Time: 11/06/2020 8:16 AM Location: OR Performed by: BARBARA/Hannah/BARBARA/AA: Lizzeth Pierson CRNAAuthorized by: Ramos Reyes MD Urgency: ElectiveDifficult Airway: No Preoxygenated with 100% O2: Yes C-spine Precaut ions Maintained Throughout: No Mask Ventilation: Easy maskFinal Airway Type: Endotracheal airwayFinal Endotracheal Airway: ETTCuffed: Yes Technique Used: Video laryngoscopyDevices/Methods Used inPlacement: Intubating styletInsertion Site: OralLaryngoscope Blade/Videolaryngoscope Blade Size: 3ETT Size (mm): 7.0Cuff at minimum occlusion pressure: Yes Measured from: TeethETT to Teeth (cm):21Placement Verified by: CO2 detection, direct visualization and equal breath sounds Laryngoscopic view: Grade I - full view of glottisRapid Sequence Induction (RSI): No Modified RSI: No Number of Attempts at Approach: 1 Suction ready, easy mask, opted to use glidescope d/t facial scar limiting mouth opening, easy grade 1view, easy intubation. Lips and teeth unchangedMethodist HospitalECG Pre/Post [id number] 23:39:44 Test Item Value Reference Range Interpretation Comments Ventricular rate (test code = 253) Atrial rate (test code = 255) NV interval (test code = 266) QRSD interval (test code = 260) QT interval (test code = 264) QTC interval (test code = 265) P axis 1 (test code = 267) QRS axis 1 (test code = 268) T wave axis (test code = 270) EKG impression (test Normal sinus code = 273) rhythm-Normal ECG-In automated comparison with ECG of 04-OCT-2020 11:22,-No significant change was found- [facility] WmljnzdlGPWG-YpN-2 (COVID-19) RNA [Presence] in Respiratory specimen by AYLA with probe krfcfngac3488-55-01 22:52:46 Test Item Value Reference Range Interpretation Comments SARS-CoV-2 (COVID-19) RNA Not detected Not-Detected [Presence] in Respiratory specimen by AYLA with probe detection (test code = 99529-1) Whether patient is employed in a healthcare setting (test code = 78020-6) Whether the patient has symptoms related to condition of interest (test code = 92952-2) Patient was hospitalized because of this condition (test code = 56962-3) Whether the patient was admitted to intensive care unit (ICU) for condition of interest (test code = 14899-7) Whether patient resides in a congregate care setting (test code = 18060-7) ECG 12 ptwn4023-15-43 03:01:49 Test Item Value Reference Range Interpretation Comments Ventricular rate (test code = 253) Atrial rate (test code = 255) NV interval (test code = 266) QRSD interval (test code = 260) QT interval (test code = 264) QTC interval (test code = 265) P axis 1 (test code = 267) QRS axis 1 (test code = 268) T wave axis (test code = 270) EKG impression (test code Normal sinus rhythm = 273) with sinus arrhythmia-Krystali juana Signed By Brent Valente MD ([id number]) on 10/04/2020 10:01:47 PM [facility] HospitalUrine apoymwz1696-74-80 01:20:59 Test Item Value Reference Range Interpretation Comments Urine culture isolate Mixed prem <=10-3 (test code = 69780-3) col/cc [facility] InstituteARS-CoV-2 (COVID-19) RNA [Presence] in Respiratory specimen by AYLA with probe uptzngkkn1208-63-33 22:42:57 Test Item Value Reference Range Interpretation Comments SARS-CoV-2 (COVID-19) RNA Not detected Not-Detected [Presence] in Respiratory specimen by AYLA with probe detection (test code = 08444-7) XR Chest 1 Vw Meacwdek9080-62-12 22:40:12SINGLE VIEW CHEST, 09/10/2020 Clinical History: Seizure.Technique: Single, portable AP view chest.Comparison: 11/12/2019 Impression:1.Lungs are clear and symmetrically inflated.2.No pleural effusions or pneumothorax.3.Normal heart size and mediastinal contour for technique.4.Normal pulmonary vasculature.5.Intact skeleton. Interface, Radiology Results Incoming - 09/10/2020 5:43 PM CDTFormatting ofthis note might be different from the original.SINGLE VIEW CHEST, 09/10/2020linical History: Seizure.Technique: Single, portable AP view chest.Comparison: 11/12/2019Impression:1.Lungs are clear and symmetrically inflated.2.No pleural effusions or pneumothorax.3.Normal heart size and mediastinal contourfor technique.4.Normal pulmonary vasculature.5.Intact skeleton.[facility] (routine)2020-06-28 14:27:01VIDEO-EEG RECORDING AWAKE & DROWSY. Date of Service:06/27/20 [...] were captured. Jojo Cruz MD ICD-10 Code: O206Hjckztyxj HospitalXR [facility] Kiole[facility]20-17-01 20:14:14EXAMINATION: [facility] 1V HISTORY: Nausea vomiting, LMP 1 8 20 COMPARISON: 11/11/2020. IMPRESSION: Support Devices: None. Mediastinum: Normal appearance of cardiomediastinal contours. Lungs: The lungs are clear. No evidence of pleural effusion or pulmonary edema. No pneumothorax. Abdomen: Mild gaseous distention of small and large bowel loops. Overall nonobstructive bowel gas pattern. Moderate colonic stool burden visualized on the level of the distal sigmoid. No rectal gas visual ized. No pneumatosis or evidence of portal venous gas. No pathologic calcifications evident. Bones/Other: Unremarkable. 1D2RAD_PS01Hm Interface, Radiology Results Incoming - 06/26/2020 2:17 PM CST EXAMINATION: XR ABDOMEN ACUTE INC CHEST 1VHISTORY: Nausea vomiting, LMP 1 8 20COMPARISON: 11/11/2020.IMPRESSION: Support Devices: None.Mediastinum: Normal appearance of cardiomediastinal contours.Lungs: The lungs are clear. No evidence of pleural effusion or pulmonary edema. No pneumothorax. Abdomen: Mild gaseous distention of small and large bowel loops. Overall nonobstructive bowel gas pattern. Moderate colonic stool burden visualized on the level of the distal sigmoid. No rectal gas visualized. No pneumatosis or evidence of portal venous gas. No pathologic calcifications evident.Bones/Other: Unremarkable.1D2RAD_PS01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 IV therapy Location: Right basilic Device Type: Non-valved Catheter Lumen(s): Single lumen Catheter size: 4 FrMidLine Characteristics: Catheter Brand: Engagement LabsFlo Midline External Catheter Length (cm):0 Internal Catheter Length (cm): 11 Total Catheter Length (cm): 11 Catheter Lot Number: [id number] Catheter Expiration Date: 03/14/2021rocedure details: Landmarks identified: [...] applied Blood Loss Amount: Less than 20 mLMethodist MadavqeoUFKR-WkR-6 (COVID-19) RNA [Presence] in Respiratory specimen by AYLA with probe pylbegovd8374-04-64 17:34:47 Test Item Value Reference Range Interpretation Comments SARS-CoV-2 (COVID-19) RNA Not detected Not-Detected [Presence] in Respiratory specimen by AYLA with probe detection (test code = 79097-3) CT Abdomen Pelvis W Fwxrjtkb8946-72-12 07:50:17EXAMINATION: CT ABDOMEN PELVIS W CONTRAST CLINICAL HISTORY: abd pain gen acute TECHNIQUE: Multipleaxial images of the abdomen and pelvis were obtained following intravenous administration of iodinated contrast. Sagittal and coronal computerized reformatted images were also obtained. CT imaging was performed with iterative reconstruction techniques and/or automated exposure control to reduce radiation dose. COMPARISON: None. FINDINGS: Small hiatal hernia. No evidence of bowel obstruction or inflammation. Normal appendix. Trace free fluid in the pelvis is likely physiologic. No suspicious or acute findings in the abdominal solid organs. Gallbladder is nondistended. Osseous structures are intact. IMPRESSION: No acute process. Small hiatal hernia. RM-VWBSVH6Zu Interface, Radiology Results Incoming - 06/19/2020 1:53 AM CST EXAMINATION: CT [...] nondistended.Osseous structures are intact.IMPRESSION:No acute process.Small hiatal hernia.[facility]-ZBDQTH1ZevmmbijxNeuroDiagnostic InstituteARS-CoV-2 (COVID-19) RNA [Presence] in Respiratory specimen by AYLA with probe wzkvkhhfo3321-82-54 06:49:36 Test Item Value Reference Range Interpretation Comments SARS-CoV-2 (COVID-19) RNA Not detected Not-Detected [Presence] in Respiratory specimen by AYLA with probe detection (test code = 93271-2) SARS-CoV-2 (COVID-19) RNA [Presence] in Respiratory specimen by AYLA with probe yjyflgcap2814-60-43 22:57:39 Test Item Value Reference Range Interpretation Comments SARS-CoV-2 (COVID-19) RNA Not detected Not-Detected [Presence] in Respiratory specimen by AYLA with probe detection (test code = 69995-5) Epilepsy/Seizure hyvirlfejl0330-68-39 15:01:11EPILEPSY MONITORING UNIT REPORT Patient Name: Heather Hope [...] left frontal central temporal region. ICD-10 Code: N876Gzjctmito HospitalEpilepsy/Seizure monitoring 2020-04-23 15:00:05EPILEPSY MONITORING UNIT REPORT Patient Name: Heather Hope [...] left frontal central temporal region. ICD-10 Code: S633Jydnrmags HospitalEpilepsy/Seizure ltxrznngrh7818-04-54 14:55:34 EPILEPSY MONITORING UNIT REPORT Patient Name: Heather [...] left frontal central temporal region. ICD-10 Code: U026Iyrazsmlh HospitalEpilepsy/Seizure monitoring 2020-04-23 14:45:34EPILEPSY MONITORING UNIT REPORT Patient Name: Heather Hope [...] left frontal central temporal region. ICD-10 Code: F415Epprxuhxy HospitalEEG (routine)2020-04-05 16:50:53VIDEO-EEG RECORDING AWAKE & ASLEEP. Date of Service:04/05/20 [...] are captured. Jojo Cruz MD ICD-10 Code: U716Muuyrpboe KzylqtoiVCRN-YlY-7 (COVID-19) RNA [Presence] in Respiratory specimen by AYLA with probe liyjbrroo6471-36-89 04:39:14 Test Item Value Reference Range Interpretation Comments SARS-CoV-2 (COVID-19) RNA Not detected Not-Detected [Presence] in Respiratory specimen by AYLA with probe detection (test code = 26221-3) CRITICAL [id number] 23:48:10BMax gleason MD 04/20/2020 3:37 PMCritical CarePerformed by: Lila ByersAuthorized by: Max Ron MD Critical care provider statement: Critical care time (minutes): 20 Critical care was necessary to treat or prevent imminent or life-threatening deterioration of the following conditions: [employer] DBA failure or compromise Critical care was time [...] care for this patient from another provider.: [facility] Brain Metabolic Zrua5308-84-01 19:42:07PROCEDURE: PET BRAIN METABOLIC EVAL INDICATION: R56.9 Unspecified convulsions, Seizures COMPARISON: MRI brain 03/27/2020 TECHNIQUE: Blood [...] a presumed interictal study. 2.Diffuse cerebellar hypometabolism suggests a pharmacologic effect. [facility]5NJ8633FO9Wu Interface, Radiology Results [facility] - 03/30/2020 2:45 PM CDT PROCEDURE: [...] in a presumed interictal study.2.Diffuse cerebellar hypometabolism suggestsa pharmacologic effect.[facility]-[id number] Hospital SARS-CoV-2 (COVID-19) RNA [Presence] in Respiratory specimen by AYLA with probe wjtjjiwpf9127-96-10 19:18:01 Test Item Value Reference Range Interpretation Comments SARS-CoV-2 (COVID-19) RNA Not detected Not-Detected [Presence] in Respiratory specimen by AYLA with probe detection (test code = 35952-8) RPR Fefvaspirij6879-15-08 16:47:08 Test Item Value Reference Range Interpretation [...] = 06-14-2020 N Expiration Dt) Thyroid Stimulating Bprtkrq9523-40-35 06:31:44 Test Item Value Reference Range Interpretation Comments TSH (test code = TSH) 3.830 mIU/mL 0.270-4.200 Lipid Uspuk6605-06-80 06:24:40 Test Item Value Reference Range Interpretation Comments Cholesterol Total 152 mg/dL 0-200 RISK OF HE ART (test code = DISEASEPublishe d by Cholesterol Total) [place] [place] lyte Optimal Borderl ine [...] LDL/HDL Ratio=L DL Calc/HDL Chol Urine Drug Owdvec5717-08-17 21:53:06 Test Item Value Reference Range Interpretation [...] if desired . Urinalysis with Culture, if edsfsfrnt3800-57-36 21:40:53 Test Item Value Reference Range Interpretation [...] Indicated Not Indicated Micro Ind?) Comprehensive Metabolic Vxmoh8825-66-89 21:34:15 Test Item Value Reference Range Interpretation [...] = A/G 1.6 ratio N Ratio) Alcohol Kpxdf9126-51-20 21:34:15 Test Item Value Reference Range Interpretation Comments Ethanol Level (test <0.00 g/dL 0.00-0.01 Intoxica vandana 0.080 g/dL code = Ethanol or more Level) Ethanol Inst (test <0 N code = Ethanol Inst) Comprehensive Metabolic Gbpjo3432-86-88 21:34:15 Test Item Value Reference Range Interpretation [...] National Kidney Foundation, http://nkdep.ni h.gov Comprehensive Metabolic Vyicc9247-17-26 21:34:15 Test Item Value Reference Range Interpretation [...] Foundation, http://nkdep.ni h.gov Complete Blood Count with Iehyrkgahfsk0607-57-17 21:15:24 Test Item Value Reference Range Interpretation [...] code = IPF) 0 % N Automated Akszdnlfyufw1229-14-23 21:15:24 Test Item Value Reference Range Interpretation Comments Neutro Auto (test code = Neutro 54.3 % 36.0-70.0 Auto) Lymph Auto (test code = Lymph Auto) 32.3 % 12.0-44.0 Bertie Auto (test code = Bertie Auto) 11.1 % 0.0-11.0 H Eos, Auto (test code = Eos, Auto) 1.3 % 0.0-7.0 Basophil Auto (test code = Basophil 0.7 % 0.0-2.0 Auto) Neutro Absolute (test code = Neutro 6.2 x10 1.6-7.4 Absolute) Lymph Absolute (test code = Lymph 3.71 x10 .50-4.60 Absolute) Bertie Absolute (test code = Bertie 1.28 x10 .00-1.20 H Absolute) Eos Absolute (test code = Eos 0.15 x10 0.00-0.74 Absolute) Baso Absolute (test code = Baso 0.08 x10 0.00-0.21 Absolute) IG [id number] 21:15:24 Test Item Value Reference Range Interpretation Comments IG (test code = IG) 0.3 % 0.0-5.0 IG Abs (test code = IG Abs) 0 x10 N HCG Qualitative Uoaoq3284-43-56 20:45:17 Test Item Value Reference Range Interpretation [...] 72 hours. Lot # (test code = 401553 N Lot #) Expiration Dt (test 2020-12-12 N code = Expiration Dt) Neg Control (test Negative code = Neg Control) Pos Control (test Positive code = Pos Control) Internal QC (test Acceptable code = Internal QC) RPR Pgkpqtsygju7181-22-75 12:07:58 Test Item Value Reference Range Interpretation [...] = 04-14-2020 N Expiration Dt) Thyroid Stimulating Coxfets3451-23-97 07:59:52 Test Item Value Reference Range Interpretation Comments TSH (test code = TSH) 0.717 mIU/mL 0.270-4.200 Lipid Wqtar9396-77-82 07:52:46 Test Item Value Reference Range Interpretation Comments Cholesterol Total 141 mg/dL 0-200 RISK OF HE ART (test code = DISEASEPublishe d by Cholesterol Total) [place] Laurel lyte Optimal Borderl ine [...] LDL/HDL Ratio=L DL Calc/HDL Chol Urine Drug Odcehq7657-04-91 15:27:40 Test Item Value Reference Range Interpretation [...] matory test if desired . Comprehensive Metabolic Tdeqh4901-41-40 15:15:20 Test Item Value Reference Range Interpretation [...] A/G 1.9 ratio N Ratio) Comprehensive Metabolic Nwemw8653-56-84 15:15:20 Test Item Value Reference Range Interpretation [...] the National Kidney Foundation, http://nkdep.ni h.gov Alcohol Dfght8473-61-98 15:15:20 Test Item Value Reference Range Interpretation Comments Ethanol Level (test <0.00 g/dL 0.00-0.01 Intoxica vandana 0.080 g/dL code = Ethanol or more Level) Ethanol Inst (test <0 N code = Ethanol Inst) Comprehensive Metabolic Pljrz8585-00-27 15:15:20 Test Item Value Reference Range Interpretation [...] ag e have not been validated by [facility] MDRD study and should be [...] ag e have not been validated by [facility] MDRD study and should be interpreted wit h caution. eGFR R esult Interpretation: eGFR > or = 60 is in the Normal RangeeGF R < 60 may mean kid shannan diseaseeGFR < 1 5 may mean kidney failure Rang es recommended by the National Kidney Foundation, http://nkdep.ni h.gov Urinalysis Rhayjskxmma2773-18-92 15:11:20 Test Item Value Reference Range Interpretation Comments UA WBC (test code = UA WBC) 6-10 0-5 A UA RBC (test code = UA RBC) 0-5 0-5 UA Bacteria (test code = UA Moderate A Bacteria) UA Squam Epithelial (test code = UA TNTC A Squam Epithelial) UA Mucous (test code = UA Mucous) Few A Urinalysis with Microscopic if funkepqux3696-39-01 14:42:58 Test Item Value Reference Range Interpretation [...] GL_SJM_UA_MICRO _IN D Complete Blood Count with Uairvbknrnzt3694-87-72 14:37:26 Test Item Value Reference Range Interpretation [...] code = IPF) 0 % N Automated Ucphavjahgcu1484-74-09 14:37:26 Test Item Value Reference Range Interpretation Comments Neutro Auto (test code = Neutro 65.8 % 36.0-70.0 Auto) Lymph Auto (test code = Lymph Auto) 25.5 % 12.0-44.0 Bertie Auto (test code = Bertie Auto) 7.3 % 0.0-11.0 Eos, Auto (test code = Eos, Auto) 0.7 % 0.0-7.0 Basophil Auto (test code = Basophil 0.5 % 0.0-2.0 Auto) Neutro Absolute (test code = Neutro 6.0 x10 1.6-7.4 Absolute) Lymph Absolute (test code = Lymph 2.34 x10 .50-4.60 Absolute) Bertie Absolute (test code = Bertie .67 x10 .00-1.20 Absolute) Eos Absolute (test code = Eos 0.06 x10 0.00-0.74 Absolute) Baso Absolute (test code = Baso 0.05 x10 0.00-0.21 Absolute) IG Tnakx4646-70-67 14:37:26 Test Item Value Reference Range Interpretation Comments IG (test code = IG) 0.2 % 0.0-5.0 IG Abs (test code = IG Abs) 0 x10 N HCG Qualitative Wvnyh1523-36-38 14:34:08 Test Item Value Reference Range Interpretation [...] 72 hours. Lot # (test code = [id number] N Lot #) Expiration Dt (test 2020-03-14 N code = Expiration Dt) Neg Control (test Negative code = Neg Control) Pos Control (test Positive code = Pos Control) Internal QC (test Acceptable code = Internal QC) DRUGS OF ABUSE SCREEN [id number] 17:11:00 Test Item Value Reference Range Interpretation [...] = [place]) concentrati on: 300 ng/mL URINALYSIS [id number] 17:08:00 Test Item Value Reference Range Interpretation [...] (test code = MOD NONE BACU) URINALYSIS CTEUODAB1481-03-75 17:00:00 Test Item Value Reference Range Interpretation [...] (test code = NONE BACU) HCG SERUM [id number] 16:52:00 Test Item Value Reference Range Interpretation Comments HCG SERUM QUAL (test code = HCGQL) NEGATIVE NEGATIVE - CT HEAD/BRAIN W/O UKRV0894-91-42 16:51:00 FAX: Theresa Fields MD [place]: [address]: REG Name: HEATHER HOPE [facility] : 1990 Age/S: 28/F [address] [address]: [id number] Loc: KASIA [place], [place]: [place] [address] Acct: [id number] Dis Date: Status: REG E R PHONE #: [phone] Exam Date: 02/23/2019 1642 FAX #: [phone] Reason: SEIZURE EXAMS: CPT CODE: [id number] CT HEAD/BRAIN W/O CONT 68625 Dictation location: U19. CT HEAD WITHOUT CONTRAST. [...] (1651) t.[email or web address].[email or web address] Orig Print D/T: S: 02/23/2019 (9129 PAGE 1 Signed ReportBASI METABOLIC [id number] 16:31:00 Test Item Value Reference Range Interpretation [...] CA) 8.8 mg/dl 8.0-10.5 N BASIC METABOLIC [id number] 16:26:00 Test Item Value Reference Range Interpretation [...] code = CA) mg/dl 8.0-10.5 CBC W/AUTO [id number] 16:15:00 Test Item Value Reference Range Interpretation [...] 3-60 N code = VLDL) RAPID PLASMA [id number] 10:31:00 Test Item Value Reference Range Interpretation Comments RAPID PLASMA REAGIN (test code = Nonreactive Nonreactive RPR) GLYCOSYLATED HEMOGLOBIN (HA1C)2018-12-07 10:05:00 Test Item Value Reference Range Interpretation Comments GLYCOSYLATED HEMOGLOBIN (HA1C) 5.8 % TOT HB 4.5-6.2 N (test code = GLYHGB) [id number] 15:31:00 Test Item Value Reference Range Interpretation Comments ACETAMINOPHEN (test < 1 MCG/ML 10-30 L Acetamin ophen is code = ACET) possibly toxic at levels of: 1. m ore than 150 MCG/ML 4 hours post kaylin stion. 2. more than 5 0 MCG/ML 12 hours post ingestion. [id number] 15:31:00 Test Item Value Reference Range Interpretation Comments SALICYLATE (test code = < 3 MG/DL 0-20 N Refe rence Range: BOSSMAN) Analgesic...... ...... ...... < 10 mg /dl Therapeutic.... ...... ...... 15-20 mg /dl Mild Toxicity....... ...... . > 30 mg/dl Severe Toxicity....... ..... > 60 mg/dl UA RFLX [id number] 14:18:00 Test Item Value Reference Range Interpretation [...] Clean Catch (test code = UASPEC) UA [id number] 14:18:00 Test Item Value Reference Range Interpretation Comments UA WBC (test code = WBCU) < 10 #/hpf <10 UA RBC (test code = RBCU) 0-2 #/hpf NONE SEEN A UA BACTERIA (test code = BACU) RARE #/hpf NONE SEEN UA SQUAMOUS CELLS (test code = 0 - 20 #/lpf <100 SQU) UA MUCUS (test code = MUCU) 1+ #/lpf NONE SEEN BASIC METABOLIC [id number] 14:16:00 Test Item Value Reference Range Interpretation [...] 9.4 MG/DL 8.7-10.5 N CA) HEPATIC FUNCTION [id number] 14:16:00 Test Item Value Reference Range Interpretation [...] 50-136 N TOTAL (test code = ALKP) [id number] 14:16:00 Test Item Value Reference Range Interpretation Comments CK (test code = CKT) 87 Units/L 26-192 N [id number] 14:16:00 Test Item Value Reference Range Interpretation Comments ALCOHOL (test code = < 3 MG/DL 0-10 N 0 - 10: Should be ALC) interpreted as NEGATIVE. 11 - 50: None to mild euphoria. 51 - 100: Mild influence on vision and dark adapta tion. > 80: Legal intoxication; D epression of [employer] DBA; Increasing degr ee of poisoning. > 400: Fatalities repo rted. Results are for medical purposes only a nd not forlegal or emp loyment evaluative purp oses. BASIC METABOLIC [id number] 14:09:00 Test Item Value Reference Range Interpretation [...] 9.4 MG/DL 8.7-10.5 N CA) HEPATIC FUNCTION [id number] 14:09:00 Test Item Value Reference Range Interpretation [...] TOTAL (test Units/L 50-136 code = ALKP) [id number] 14:09:00 Test Item Value Reference Range Interpretation Comments CK (test code = CKT) Units/L 26-192 [id number] 14:09:00 Test Item Value Reference Range Interpretation Comments ALCOHOL (test code = ALC) MG/DL 0-10 LACTIC ACID [id number] 13:50:00 Test Item Value Reference Range Interpretation Comments LACTIC ACID POC 0.97 MMOL/L 0.90-1.70 N Performed by certified (test code = LACTP) continuous linter drier operator at [facility] [id number] 13:48:00 Test Item Value Reference Range Interpretation Comments GLUBED (test code = 88 MG/DL 65-99 N Performe d by certified GLUBED) continuous linter drier operator at [facility] DRUG OF ABUSE SCREEN [id number] 13:43:00 Test Item Value Reference Interpretation Comments [...] by layton rader methods (i.e., GC/MS) at [facility]. Results of scre en may not be usedin crimi nal justice, job performance or professionalcre dential review, or infa nt custody issues. Negativ e [place] Level ng/ml ------- ----- Cocaine 300 Methamp hetamine (Ecstacy) 500 Cannabinoids (THC) 50 Amphetamine 1000 Barbiturate s 200 Benzodia zepines 200 Opiat es 300 Ph encyclidine (PCP) 25 UR HCG [id number] 13:39:00 Test Item Value Reference Range Interpretation [...] using aquantitative h CG assay. UA RFLX [id number] 13:38:00 Test Item Value Reference Range Interpretation [...] Clean Catch (test code = UASPEC) UA [id number] 13:38:00 Test Item Value Reference Range Interpretation Comments UA WBC (test code = WBCU) #/hpf <10 UA RBC (test code = RBCU) #/hpf NONE SEEN UA SQUAMOUS CELLS (test code = SQU) #/lpf <100 UA RFLX [id number] 13:38:00 Test Item Value Reference Range Interpretation [...] Clean Catch (test code = UASPEC) UA [id number] 13:38:00 Test Item Value Reference Range Interpretation Comments UA WBC (test code = WBCU) #/hpf <10 UA RBC (test code = RBCU) #/hpf NONE SEEN UA SQUAMOUS CELLS (test code = SQU) #/lpf <100 CBC W/AUTO [id number] 13:26:00 Test Item Value Reference Range Interpretation [...] = BA#) 0.05 x10 3/uL 0.0-0.2 N [id number] 19:07:00 Test Item Value Reference Interpretation Comments Range LEVETIRACETAM 28.7 ug/mL 10.0-40.0 This test was developed and (test code = its performance LEVTAM) characteristics determined by [facility]. It has not been cleared orappro froylan by the Food and Drug Administration. Performed At: [facility] [place], [place] [id number] ra Larissa MENDOZA Ph:[phone] BASIC METABOLIC [id number] 04:58:00 Test Item Value Reference Range Interpretation [...] code = 8.9 MG/DL 8.7-10.5 N CA) [id number] 04:58:00 Test Item Value Reference Range Interpretation Comments MAGNESIUM (test code = MAG) 1.9 MG/DL 1.8-2.4 N CBC W/AUTO [id number] 04:08:00 Test Item Value Reference Range Interpretation [...] 0.0-0.2 N NRBC#) - MRI BRAIN W/O [id number] 13:51:00 Patient Name: HEATHER HOPE Unit No: [id number] EXAMS: CPT CODE: [id number] MRI BRAIN W/O CONTRAST 14361 Reason: sz INDICATION: Seizure COMPARISON: CT brain, [...] until the patient can hold still. at 1357 Reported and signed by: Lashell Anderson MD CC: Fanny Knowles DO; Jacob Gutierrez MD Technologist: Andre Self MRI Trscrpt Dt/ (7781)tHELENDW6 Orig Print D/T: S: 09/17/2018 (8529) [facility] CntNAME: HEATHER HOPE [address]OV[address] PHYS: [place] [address] : 1990 AGE: 27 SEX: F LOC: D.D313 1 PHONE #: [phone] EXAM DATE: 09/17/2018 STATUS: ADM IN FAX #: RAD NO: DC Dt: PAGE 1 Signed [id number] 07:25:00 Test Item Value Reference Range Interpretation Comments PROLACTIN (test code = 24.6 ng/mL 4.8-23.3 H Perfo rmed At: HD PROLAC) [facility] [address] [id number] Sb Man MD Ph:[phone] UA RFLX MICROSCOPIC [id number] 19:02:00 Test Item Value Reference Range Interpretation [...] UACULT) URINE SOURCE: Clean CatchUA RFLX MICROSCOPIC [id number] 18:56:00 Test Item Value Reference Range Interpretation [...] (test code = UACULT) URINE SOURCE: Clean [id number] 15:56:00 Test Item Value Reference Range Interpretation Comments CK (test code = CKT) 34 Units/L 26-192 N BASIC METABOLIC [id number] 12:57:00 Test Item Value Reference Range Interpretation [...] code = 8.6 MG/DL 8.7-10.5 L CA) [id number] 12:57:00 Test Item Value Reference Range Interpretation Comments CK (test code = CKT) 32 Units/L 26-192 N CBC W/AUTO [id number] 12:33:00 Test Item Value Reference Range Interpretation [...] 3/uL 0.0-0.2 N NRBC#) TOTAL IRON BINDING [id number] 05:50:00 Test Item Value Reference Range Interpretation Comments SERUM IRON (test code = IRON) 17 MCG/DL 50-170 L TOTAL IRON BINDING CAPACITY (test 363 MCG/DL 280-400 N code = TIBC) IRON SATURATION (test code = 5 % 15-50 L FESAT) [id number] 05:50:00 Test Item Value Reference Range Interpretation Comments FERRITIN (test code = LULI) 11 NG/ML 3-105 N HEPATIC FUNCTION [id number] 05:32:00 Test Item Value Reference Range Interpretation [...] code = ALKP) - CT HEAD/BRAIN W/O [id number] 20:19:00 Patient Name: HEATHER HOPE Unit No: [id number] EXAMS: CPT CODE: [id number] CT HEAD/BRAIN W/O CONT 72777 Reason: seizure TECHNIQUE: Contiguous 5 mm images were obtained throughbrain. No contrast was given. FINDINGS: The ventricles are normal in size and configuration. There is no intracranial hemorrhage, mass effect or abnormal extra-axial fluid collection. There are no focal attenuation abnormalities within the brain parenchyma. Bone targeted windows are unremarkable. IMPRESSION: Negative at 2019 Reported and signed by: Lashell Jimenez MD CC: Keanu Vázquze MD; Cristiane Heath Technolog ist: Edel Cade CT Trscrpt Dt/ (2018)Tristan Orig Print D/T: S: 09/14/2018 (2021) CTDI: DLP: [facility] NAME: HEATHER HOPE [address] [facility] PHYS: WONGJA. - Keanu Váz[place] [id number] : 1990 AGE: 27 SEX: F LOC: RichNER PHONE#: [phone] EXAM DATE: 09/14/2018 STATUS: REG ER FAX #: RAD NO: DC Dt: PAGE 1 Signed Report- XR CHEST 1 [id number] 20:18:00 Patient Name: HEATHER HOPE Unit No: [id number] EXAMS: CPT CODE: [id number] XR CHEST 1 V 37203 Reason: screen for pneumonia FINDINGS: Single view ofthe chest shows normal heart size and pulmonary vasculature. The lungs are clear bilaterally. There is no focal infiltrate, pleural effusion or pneumothorax. IMPRESSION: No acute cardiopulmonary findings at 2018 Reported and signed by: Lashell Jimenez MD CC: Keanu Vázquez MD; Cristiane Heath Technologist: Edel BURNS Trscrpt Dt/ (2017)t.GAVIOTAR.DKW Orig PrintD/T: S: 09/14/2018 (2020) [facility] NAME: HEATHER HOPE [address] [address] [facility] PHYS: NGA. Keanu Váz[place] [address] : 1990 AGE: 27 SEX: F LOC: RichNER PHONE #: [phone] EXAM DATE: 09/14/2018 STATUS: REG ER FAX [...] using aquantitative h CG assay. BASIC METABOLIC [id number] 19:51:00 Test Item Value Reference Range Interpretation [...] 9.3 MG/DL 8.7-10.5 N CA) CBC W/AUTO [id number] 19:46:00 Test Item Value Reference Range Interpretation [...] BA#) 0.05 x10 3/uL 0.0-0.2 N BLOOD [id number] 10:00:00 Test Item Value Reference Range Interpretation Comments CULTURE (BEAKER) (test No growth in 5 days code = 1095) HCG, QUANTITATIVE, [id number] 15:37:00 Test Item Value Reference Range Interpretation Comments GONADOTROPIN, CHORIONIC (HCG) 63732 mIU/mL 0-10 H QUANT (BEAKER) (test code = 649) Non- Females: <10 mIU/mL Females: Gestation Age Reference Range(mIU/mL) 0.2-1 Week 5-50 1-2 Weeks 50-500 2-3 Weeks 100-5,000 3-4Weeks 500-10,000 4-5 Weeks 1,000-50,000 5-6 Weeks 10,000-100,000 6-8 Weeks 15,000-200,000 2-3 Months 10,000-100,000COMPREHENSIVE METABOLIC [id number] 15:10:00 Test Item Value Reference Range Interpretation [...] PATIEN TS. CBC W/PLT COUNT & AUTO [id number] 14:53:00 Test Item Value Reference Range Interpretation [...] (test code = 2801) U/S, , FIRST [id number] 07:52:00Reason for exam:-> Reason for exam:->please include [...] 1 day. An embryonic pole is evident. [place]-rump length measures 0.63 cm, correlating with [...] Garrido Verified Date/Time: 05/17/2017 07:52:37 Reading Location: [facility] C013X Ortho Consult Reading Room PREGNANCY SCREEN, [id number] 05:28:00 Test Item Value Reference Range Interpretation Comments TEST URINE (BEAKER) (test Positive code = 583) MR, BRAIN, WITHOUT [id number] 18:54:00Reason for exam:->Stroke evaluationFINAL REPORT MRI brain [...] Parra Verified Date/Time: 05/15/2017 18:54:11 Reading Location: [facility] Radiology Reading Room EEG AWAKE AND [id number] 12:08:00Reason for exam:->? nonconvulsive statusDATE OF TEST: 05/15/2017DATE OF REPORT 05/15/2017 ACC: [id number] EE Start time: 1034 Stop time: 1054 ICD-10: R56.9CPT Code: 30763QYKTINY: 26 y/o woman with epilepsy found down [...] recordings.Marika Smith M.D.Neurophysiology FellowSwathi Harper M.D.Neurophysiology Attending [id number] 04:27:00 Test Item Value Reference Range Interpretation Comments PROCALCITONIN (BEAKER) (test code 0.17 ng/mL <0.05 H = 3036) SEPSIS RISK (ng/mL)Low: 0.05-0.50Intermediate: 0.51-2.00High: >=[id number] 03:15:00 Test Item Value Reference Range Interpretation Comments PHOSPHORUS (BEAKER) (test code = 3.1 mg/dL 2.3-4.7 604) [id number] 03:15:00 Test Item Value Reference Range Interpretation Comments MAGNESIUM (BEAKER) (test code = 1.9 mg/dL 1.6-2.6 627) BASIC METABOLIC [id number] 03:15:00 Test Item Value Reference Range Interpretation [...] code = 380) LACTIC ACID, VENOUS, WHOLE [id number] 03:09:00 Test Item Value Reference Range Interpretation Comments LACTATE BLOOD VENOUS (2) (BEAKER) 0.6 mmol/L 0.5-2.2 (test code = 2872) Effective 10/17/2015: Units/Reference Range ChangeNew: 0.5-2.2 mmol/L Previous: 5-20 mg/dLPROTHROMBIN TIME/[id number] 03:07:00 Test Item Value Reference Range Interpretation [...] = 2801) RAD, CHEST, 1 VIEW, NON [id number] 01:06:00Reason for exam:->possible infectionShould this be performed at the bedside?->YesFINAL REPORT History: Infection. Comparison: None. Findings: A single view of the chest is submitted. The cardiomediastinal contours are unremarkable. There is no focal consolidation, pneumothorax, large pleural effusion or evidence of overt pulmonary edema. There is no acute bony abnormality. Impression: No acute abnormality. Signed: Shabnam Zhu Verified Date/Time: 05/15/2017 01:06:06 Reading Location: [address] Reading Room
[2021-02-11 14:51] LABS: Protime INR 1.15
[2021-02-11 14:57] LABS: Basophils % 0.7 % (0-1.3); Hematocrit 35.8 % (36.0-45.0); MPV 7.5 fL (7.6-11.3); RBC Red Blood Cell Count 4.59 M/uL (3.86-4.86)
[2021-02-11] MEDS ORDERED: LORazepam 2 MG/ML VIAL ONE (14:57)
[2021-02-11 15:22] LABS: ALT/SGPT 24 U/L (12-78); AST/SGOT 16 U/L (15-37); Albumin 4.4 g/dL (3.4-5.0); Alkaline Phosphatase 86 U/L (45-117); BUN Blood Urea Nitrogen 11 mg/dL (7-18); Bicarbonate 28 mmol/L (21-32); Bilirubin Direct < 0.1 mg/dL (0-0.2); Bilirubin Total 0.2 mg/dL (0.2-1.0); Glucose Level 147 mg/dL (74-106); Potassium 3.7 mmol/L (3.5-5.1); Protein, Total 7.9 g/dL (6.4-8.2); Sodium Level 138 mmol/L (136-145)
[2021-02-11 15:27] LABS: Urine Blood 3+ (Negative); Urine Glucose Trace (Negative); Urine Protein 2+ (Negative); Urine Specific Gravity >=1.030 (1.005-1.030); Urine pH 5.5 (5.0-7.0)
[2021-02-11 15:34] LABS: Lithium < 0.2 mmol/L (0.6-1.2); Phenytoin (Dilantin) Level 36.4 ug/mL (10.0-20.0); Salicylates Level < 1.7 mg/dL (2.8-20)
[2021-02-11] MEDS ORDERED: NA CHLORIDE 0.9% 1,000 ML ONE ×2 (15:56→18:34)
[2021-02-11 16:02] LABS: Barbiturates NEGATIVE (NEGATIVE); Opiates POSITIVE (NEGATIVE)
[2021-02-11 16:06] LABS: Benzodiazepines NEGATIVE (NEGATIVE); Cocaine NEGATIVE (NEGATIVE); METHAMPHETAM NEGATIVE (NEGATIVE); Methadone NEGATIVE (NEGATIVE); Phencyclidine NEGATIVE (NEGATIVE); THC Cannibis NEGATIVE (NEGATIVE)
[2021-02-11] MEDS ORDERED: Acetylcysteine 6000mg/30mL IV ONE ×3 (18:08→20:12)
[2021-02-11] MEDS ORDERED: NA CHLORIDE 0.9% 100 ML ONE (18:14)
[2021-02-11] MEDS ORDERED: D5W 250 ML IV ONE ×2 (18:22→20:13)
--- NOTE | 2021-02-11 19:50 | ER ---
Nurse's Notes [facility] Name: Heather Hope Age: 30 yrs Sex: Female : 1990 Arrival Date: 02/11/2021 Time: 13:37 Bed 23 Private MD: Diagnosis: Overdose - acetaminophen Presentation: 02/11 13:44 Chief complaint: EMS states: states they were called out by the patients family who ap3 found the patient on the floor having "seizure-like". It is reported a bottle of Tylenol with Codeine was found near the patient. It is unknown if she ingested any of this medication. EMS also reports patient had about 3-4 pounds of "artifical red" emesis while in route. They reported the emesis resembled koolaid. Coronavirus screen: Client denies travel out of the [place] in the last 14 days. Ebola Screen: No symptoms or risks identified at this time. Initial Sepsis Screen: Does the patient meet any 2 criteria? No. Patient's initial sepsis screen is negative. Does the patient have a suspected source of infection? No. Patient's initial sepsis screen is negative. Risk Assessment: Do you want to hurt yourself or someone else? Patient reports no desire to harm self or others. Onset of symptoms was February 11, 2021. Care prior to arrival: None. 13:44 Method Of Arrival: EMS: [facility] ap3 13:44 Acuity: DARLYN 3 ap3 15:34 Acuity: DARLYN 2 iw Triage Assessment: 13:48 General: Appears in no apparent distress. Behavior is calm, drowsy. Pain: Unable to use ap3 pain scale. patient not responding to verbal stemuli. EENT:. Neuro:. Respiratory: Airway is patent Respiratory effort is even, unlabored, Respiratory pattern is regular, symmetrical. Historical: - Home Meds: 13:47 Dilantin Oral [Active]; lithium carbonate Oral [Active]; Abilify oral [Active]; ap3 - PMHx: 13:48 Anemia; Depression; Seizures; ap3 - Immunization history:: Unkown. - Social history:: Smoking status: unknown. Screenin:00 Abuse screen: Pt non verbal. Nutritional screening: No deficits noted. Tuberculosis ch5 screening: Unkown. Fall Risk None identified. Fall in past 12 months (25 points). Assessment: 14:00 Neuro: Seizure activity Patient is post-ictal at this time. Pt turns head when ammonia ch5 is tried. Shaking in bed. Provider notified. 14:48 Reassessment:. General: Appears in no apparent distress. Behavior is. ch5 Vital Signs: 13:44 BP 160 / 100; Pulse 100; Resp 15 S; ap3 16:41 BP 102 / 72; Pulse 74; Resp 18; Pulse Ox 99% on R/A; Pain 0/10; ch5 17:45 Weight 52.62 kg; ch5 20:05 BP 125 / 84; Pulse 96; Resp 18; Temp 98.4; Pulse Ox 100% on R/A; ch4 ED Course: 13:37 Patient arrived in ED. iw 13:40 George Rojas PA is PHCP. jr8 13:40 Steve Lawrence MD is Attending Physician. jr8 13:47 Triage completed. ap3 13:49 Patient has correct armband on for positive identification. Bed in low position. Call ap3 light in reach. Side rails up X2. 14:00 No provider procedures requiring assistance completed. Accessed using 18G Sureflo IV ch5 catheter ,sterile technique, Placed in Left EJ. 14:36 Stew Sage RN is Primary Nurse. ch5 16:41 initiate transfer to [facility]. bd 16:45 pt denied due to no beds available at any [facility] hospital. bd 17:23 initiated transfer to [facility]. bd 18:07 PHCP role handed off by George Rojas PA pm1 18:07 Jarvis Greer NP is PHCP. pm1 19:36 Primary Nurse role handed off by Stew Sage, CLAUDIA mw2 19:44 Estefania Lopez, CLAUDIA is Primary Nurse. ch4 Administered Medications: 14:36 Drug: Ativan (LORazepam) 2 mg Route: IVP; Site: left jugular; ch5 15:35 Drug: NS 0.9% 1000 ml Route: IV; Rate: 1000 ml; Site: left jugular; ap3 18:15 Drug: Acetadote (acetylcysteine) 150 mg/kg Route: IV; Rate: calculated rate; Site: left ch5 jugular; 18:15 Drug: NS 0.9% 1000 ml Route: IV; Rate: 100 ml/hr; Site: left jugular; ch5 19:56 Drug: Acetadote (acetylcysteine) 50 mg/kg Route: IV; Rate: calculated rate; Site: right ch4 upper arm; Outcome: 19:50 ER care complete, transfer ordered by . pm1 21:19 Patient left the ED. ch4 Signatures: Harmony Brooke Irene, RN RN iw George Rojas PA PA jr8 Jarvis Greer, [employer] DEVELOPMENT [employer] HOUSING DIRECTOR pm1 Arlene Lewis RN RN ap3 Brittnee Tobar 2 Estefania Lopez RN RN ch4 Stew Sage RN RN ch5 Corrections: (The following items were deleted from the chart) 13:56 13:44 Chief complaint: EMS states: states they were called out by the patients family ap3 who found the patient on the floor having "seizure-like". It is reported a bottle of Tylenol with Codeine was found near the patient. It is unknown if she ingested any of this medication. ap3
--- NOTE | 2021-02-11 19:50 | EDPHYS ---
Physician Documentation [facility] Name: Heather Hope Age: 30 yrs Sex: Female : 1990 Arrival Date: 02/11/2021 Time: 13:37 Bed 23 Private MD: ED Physician Steve Lawrence HPI: 02/11 15:12 This 30 yrs old Female presents to ER via EMS with complaints of seizure. jr8 15:12 The patient presents after having a single isolated seizure. Character of seizure(s): jr8 Loss of consciousness: the patient experienced loss of consciousness, Motor activity: generalized, Incontinence: none, Apnea: the patient did not experience apnea, Circulation: the patient did not experience evidence of pulse disturbance, Eye movements: are unknown. Seizure onset: just prior to arrival. Context: the seizure(s) was witnessed, by family, occurred at home. Current symptoms: decreased level of consciousness. It is unknown whether or not the patient has had similar symptoms in the past. It is unknown whether or not the patient has recently seen a physician. 15:31 This is a 30-year-old female presented to emergency room after EMS was called out for jr8 seizure-like activity at home. Patient has a history of seizures. Family was concerned because they found a bottle of Tylenol 3 next to patient. EMS stated that she had vomited copious amounts of pink like solution as well but did not see any bottles or [id number] meds consistent with that type of regurgitant. Patient minimally responsive to painful stimuli upon arrival but without seizure activity.. Historical: - Home Meds: 13:47 Dilantin Oral [Active]; lithium carbonate Oral [Active]; Abilify oral [Active]; ap3 - PMHx: 13:48 Anemia; Depression; Seizures; ap3 - Immunization history:: Unkown. - Social history:: Smoking status: unknown. ROS: 15:31 Unable to obtain ROS due to obtunded state. jr8 Exam: 16:54 Eyes: Pupils equal round and reactive to light, extra-ocular motions intact. Lids and jr8 lashes normal. Conjunctiva and sclera are non-icteric and not injected. Cornea within normal limits. Periorbital areas with no swelling, redness, or edema. ENT: Nares patent. No nasal discharge, no septal abnormalities noted. Tympanic membranes are normal and external auditory canals are clear. Oropharynx with no redness, swelling, or masses, exudates, or evidence of obstruction, uvula midline. Mucous membranes moist. Neck: Trachea midline, no thyromegaly or masses palpated, and no cervical lymphadenopathy. Supple, full range of motion 16:54 Abdomen/GI: Soft, with normal bowel sounds. No distension or tympany. Skin: Warm, dry with normal turgor. Normal color with no rashes, no lesions, and no evidence of cellulitis. MS/ Extremity: Pulses equal, no cyanosis. Neurovascular intact. Full, normal range of motion. 16:54 Cardiovascular: Rate: tachycardic, Rhythm: regular, Pulses: Pulses are 2+ in bilateral radial, brachial, femoral, popliteal, posterior tibial and and dorsalis pedis arteries.. Heart sounds: normal, normal S1and S2, no S3 or S4, no murmur, no rub, no gallop, Edema: is not appreciated. 16:54 Respiratory: the patient does not display signs of respiratory distress, Respirations: normal, Breath sounds: are clear throughout, no bronchial sounds, no decreased breath sounds, no rales, rhonchi, no stridor, no wheezing. 16:54 Neuro: Orientation: Not oriented to person, place, time, situation, Mentation: unable to follow commands, somnolent, Memory: unable to test, Motor: moves all fours, Sensation: no obvious gross deficits, seizure activity, is not currently displayed, but the patient is post-ictal. Vital Signs: 13:44 BP 160 / 100; Pulse 100; Resp 15 S; ap3 16:41 BP 102 / 72; Pulse 74; Resp 18; Pulse Ox 99% on R/A; Pain 0/10; ch5 17:45 Weight 52.62 kg; ch5 20:05 BP 125 / 84; Pulse 96; Resp 18; Temp 98.4; Pulse Ox 100% on R/A; ch4 MDM: 13:44 Patient medically screened. [facility] 16:54 Data reviewed: vital signs, nurses notes, lab test result(s), EKG, radiologic studies. jr8 Data interpreted: Pulse oximetry: on room air is 99 %. Interpretation: normal. Counseling: I had a detailed discussion with the patient and/or guardian regarding: the historical points, exam findings, and any diagnostic results supporting the discharge/admit diagnosis, lab results, the need for further work-up and treatment in the hospital. ED course: Patient has had mild improvement in mentation and vital signs. Patient's acetaminophen level was 114. Toxicology was consulted. Advised to start Acetadote at this time which we have done. Will monitor Dilantin levels otherwise.. 18:50 ED course: Transfer accepted by Dr. Frederick at [facility]. pm1 02/11 13:40 Order name: Acetaminophen; Complete Time: 15:38 8 02/11 13:40 Order name: Basic Metabolic Panel; Complete Time: 15:[address] [facility] 02/11 13:40 Order name: CBC with Diff; Complete Time: 15:[address] [facility] 02/11 13:40 Order name: ETOH Level; Complete Time: 15:8 02/11 13:40 Order name: Hepatic Function; Complete Time: 15: [facility] 02/11 13:40 Order name: PT-INR; Complete Time: 15: [facility] 02/11 13:40 Order name: Ptt, Activated; Complete Time: 15:[address] [facility] 02/11 13:40 Order name: Salicylate; Complete Time: 15:38 8 02/11 13:40 Order name: Urine Drug Screen; Complete Time: 16:[address] [facility] 02/11 13:41 Order name: Dilantin; Complete Time: 15:38 8 02/11 13:41 Order name: [place]; Complete Time: 15:[address] [facility] 02/11 15:27 Order name: Urine Dipstick-Ancillary; Complete Time: 15:38 [facility] 02/11 18:55 Order name: SARS-COV-2 RT PCR; Complete Time: 19:02 [facility] 02/11 13:40 Order name: EKG; Complete Time: 13:[address] [facility] 02/11 13:40 Order name: EKG - Nurse/Tech; Complete Time: 15:[address] [facility] 02/11 13:40 Order name: IV Saline Lock; Complete Time: 15:30 8 02/11 13:40 Order name: Labs collected and sent; Complete Time: 15:[address] [facility] 02/11 13:40 Order name: Urine Dipstick-Ancillary (obtain specimen); Complete Time: 15:31 jr8 Administered Medications: 14:36 Drug: Ativan (LORazepam) 2 mg Route: IVP; Site: left jugular; ch5 15:35 Drug: NS 0.9% 1000 ml Route: IV; Rate: 1000 ml; Site: left jugular; ap3 18:15 Drug: Acetadote (acetylcysteine) 150 mg/kg Route: IV; Rate: calculated rate; Site: left ch5 jugular; 18:15 Drug: NS 0.9% 1000 ml Route: IV; Rate: 100 ml/hr; Site: left jugular; ch5 19:56 Drug: Acetadote (acetylcysteine) 50 mg/kg Route: IV; Rate: calculated rate; Site: right ch4 upper arm; Disposition: 02/12 07:54 Co-signature as Attending Physician, Steve Lawrence MD I agree with the assessment and issac plan of care. Disposition Summary: 02/11/21 19:50 Transfer Ordered Transfer Location: Other Acute Care Facility pm1 Reason: Higher level of care pm1 Condition: Stable pm1 Problem: new pm1 Symptoms: have improved pm1 Accepting Physician: Otoniel(02/11/21 21:19) ch4 Diagnosis - Overdose - acetaminophen pm1 Discharge Instructions: - Discharge Summary Sheet 5 Forms: - Medication Reconciliation Form pm1 - SBAR form 5 Signatures: Dispatcher [employer] EDSteve Russell MD MD cha Roszak, Josh, PA PA jr8 Jarvis Greer, CAPPER MACHINE OPERATOR CAPPER MACHINE OPERATOR pm1 Arlene Lewis RN RN ap3 Estefania Lopez RN RN ch4 Stew Sage RN RN ch5 Corrections: (The following items were deleted from the chart) 02/11 17:54 16:45 CORONAVIRUS+MR.LAB.BRZ ordered. EDTN EDTN 21:19 19:50 Otoniel pm1 ch4
[2021-02-11 21:39] VITALS: BP 125/84; TEMP 98.4; O2SAT 100
--- NOTE | 2021-02-12 16:14 | EKG ---
Test Date: 2021-02-11 Test Time: 13:56:54 Final Block Press Operator: SHANTELL MEASUREMENT RESULTS: Intervals: Rate: 96 ND: 156 QRSD: 86 QT: 350 QTc: 442 [place]: P: ND: 156 QRS: 173 T: 158 INTERPRETIVE STATEMENTS: Normal sinus rhythm Right axis deviation T wave abnormality, consider inferior ischemia Abnormal ECG Compared to ECG 12/24/2020 13:12:05 Right-axis deviation now present T-wave abnormality now present Possible ischemia now present Myocardial infarct finding no longer present Electronically Signed On 02-12-21 16:11:54 CDT by Merrill Guzman
== END 2021-02-11 21:19 ==
LOC: ER 13:23
DX: T39.1X1A Poisoning by 4-Aminophenol derivatives, accidental (unintentional), initial encounter (principal); G40.909 Epilepsy, unspecified, not intractable, without status epilepticus; F32.9 Major depressive disorder, single episode, unspecified; Z20.822 Contact with and (suspected) exposure to COVID-19
CPT/HCPCS: 93005; 85025; 80048; 36415; 80320; 80329 ×2; 85610; 80178; 80076; 85730; 80185; 81003; 80307; 99284; U0003; J0132 ×2; J7060 ×2; J7030 ×2

== ENCOUNTER 2021-04-08 12:45 | Emergency (ER) | payer OTHER ==
[2021-04-08 13:10] LABS: Urine Blood Negative (Negative); Urine Glucose Negative (Negative); Urine Protein 2+ (Negative); Urine Specific Gravity 1.025 (1.005-1.030); Urine pH 6.5 (5.0-7.0)
[2021-04-08 13:24] LABS: Barbiturates NEGATIVE (NEGATIVE); Benzodiazepines NEGATIVE (NEGATIVE); Cocaine NEGATIVE (NEGATIVE); METHAMPHETAM NEGATIVE (NEGATIVE); Methadone NEGATIVE (NEGATIVE); Opiates NEGATIVE (NEGATIVE); Phencyclidine NEGATIVE (NEGATIVE); THC Cannibis NEGATIVE (NEGATIVE)
[2021-04-08 13:49] LABS: Absolute Lymphocytes (CBC) 1.7 K/uL (0.7-4.9); Basophils % 1.1 % (0-1.3); Lymphocytes % 28.9 % (15.3-44.8); MPV 7.8 fL (7.6-11.3)
[2021-04-08 14:14] LABS: ALT/SGPT 18 U/L (12-78); AST/SGOT 17 U/L (15-37); Albumin 3.8 g/dL (3.4-5.0); Alkaline Phosphatase 87 U/L (45-117); BUN Blood Urea Nitrogen 8 mg/dL (7-18); Bicarbonate 25 mmol/L (21-32); Bilirubin Direct < 0.1 mg/dL (0-0.2); Bilirubin Total 0.2 mg/dL (0.2-1.0); Glucose Level 96 mg/dL (74-106); Potassium 3.9 mmol/L (3.5-5.1); Protein, Total 7.5 g/dL (6.4-8.2); Sodium Level 140 mmol/L (136-145)
[2021-04-08 14:34] LABS: Urine Specific Gravity/Preg 1.025 (1.005-1.030)
--- NOTE | 2021-04-08 14:54 | ER ---
Nurse's Notes [facility] Name: Heather Hope Age: 30 yrs Sex: Female : 1990 Arrival Date: 04/08/2021 Time: 12:51 Bed 23 Private MD: Diagnosis: Major depressive disorder, recurrent, in partial remission Presentation: 04/08 13:12 Chief complaint: Officers state that the patients step-father called them to report the ap3 patient was suicidal. It is reported that the patient had a handful of pills, believed to be tylenol, and was threatening to take them. Upon PD's arrival the patient became upset and stormed into the house. Patient states she is not suicidal, she was upset with her Ex, and said things she didn't mean. She states she has no suicidal thoughts, tendencies and currently denies having a plan in place. Coronavirus screen: At this time, the client does not indicate any symptoms associated with coronavirus-19. Ebola Screen: No symptoms or risks identified at this time. Initial Sepsis Screen: Does the patient meet any 2 criteria? Yes Does the patient have a suspected source of infection? No. Patient's initial sepsis screen is negative. Risk Assessment: Do you want to hurt yourself or someone else? Other: patient was brought in by officers with an GRACIELA, but patient denies suicidal thoughts at this time. Onset of symptoms was April 08, 2021. 13:12 Method Of Arrival: Law Enforcement: [place] [employer] ap3 13:12 Acuity: DARLYN 2 ap3 Triage Assessment: 13:15 General: Appears in no apparent distress. Behavior is calm, cooperative. Pain: Denies ap3 pain. Neuro: Level of Consciousness is awake, alert, obeys commands, Oriented to person, place, time, situation, Appropriate for age Gait is steady, Speech is normal. Cardiovascular: Patient's skin is warm and dry. Respiratory: Airway is patent Respiratory effort is even, unlabored. GI: No signs and/or symptoms were reported involving the gastrointestinal system. : No signs and/or symptoms were reported regarding the genitourinary system. Derm:. Derm: scaring noted on patients face, and torso. Musculoskeletal:. HISTOPATHOLOGY TECHNICIAN: 15:02 LMP N/A - Irregular menses ap3 Historical: - Home Meds: 13:14 Abilify Oral [Active]; Dilantin Oral [Active]; ap3 - PMHx: 13:14 Anemia; Depression; Seizures; ap3 - Immunization history:: Adult Immunizations up to date. - Social history:: Smoking status: Patient denies any tobacco usage or history of. Screenin:17 Abuse screen: Denies threats or abuse. Nutritional screening: No deficits noted. ap3 Tuberculosis screening: No symptoms or risk factors identified. Fall Risk None identified. Vital Signs: 15:02 BP 134 / 86; Pulse 76; Pulse Ox 99% on R/A; ap3 ED Course: 12:51 Patient arrived in ED. ss 12:52 Sumeet Bailey MD is Attending Physician. sp3 13:11 Arlene Lewis, RN is Primary Nurse. ap3 13:14 Triage completed. ap3 13:16 Arm band placed on right wrist. ap3 13:16 Placed in gown. Bed in low position. Side rails up X2. Patient is placed in psych hold. ap3 13:17 Safety Checks: Personal items have been removed. The door is open or patient has been ap3 placed in a hallway bed/chair. There are no family/friend visitors at this time Sitter not present at this time. 14:30 ED physician to see patient. ap3 15:01 No provider procedures requiring assistance completed. Patient did not have IV access ap3 during this emergency room visit. Administered Medications: No medications were administered Outcome: 14:53 Discharge ordered by . sp3 15:01 Discharged to home ambulatory. ap3 15:01 Condition: good 15:01 Discharge instructions given to patient, Instructed on discharge instructions, follow up and referral plans. Demonstrated understanding of instructions, follow-up care. 15:02 Patient left the ED. ap3 Signatures: Anyi Car RN RN Arlene Lewis RN RN ap3 Sumeet Bailey MD MD sp3
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
[2021-04-08 15:14] VITALS: BP 134/86; O2SAT 99
[2021-04-08 15:16] LABS: Protime INR 0.98
== END 2021-04-08 15:02 | disposition home or self-care (01) ==
LOC: ER 12:45
DX: F33.41 Major depressive disorder, recurrent, in partial remission (principal)
CPT/HCPCS: 36415; 80048; 80076; 80307; 80320; 80329; 81003; 81025; 85025; 85610; 85730; 99281

== ENCOUNTER 2023-05-18 18:21 | Emergency (ER) | payer OTHER ==
--- OUTSIDE RECORDS SUMMARY | 2023-05-18 18:35 | XMS REPORT | Continuity of Care Document ---
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 ORAL 1-28 mouth. ity of 13:43: [place] [address] Medical Branch cloBAZam 2019-06 Yes 10mg Take 10 mg Uni vers (ONFI) 10 1-28 by mouth ity of mg Tab 13:43: every [place] 13 evening. Medical Branch perampanel 2019-06 Yes 4mg Take 4 mg Un [facility]mael 4 mg Tab 1-28 by mouth 2 ity o f 13:43: (two) [place] 13 times Medical daily. Branch fluoxetine 2019-06 Yes Take by Univ ers HCl (PROZAC 1-28 mouth. ity of ORAL) 13:43: [place] [address] Medical Branch CLONAZEPAM 2019-06 Yes Take by Univ ers ORAL 1-28 mouth. ity of 13:43: [place] [address] Medical Branch cloBAZam 2019-06 Yes 10mg Take 10 mg Uni vers (ONFI) 10 - by mouth ity of mg Tab 13:43: every [place] 13 evening. Medical Branch lacosamide 2019-06 Yes 100mg 100 mg, Uni vers (VIMPAT) 1- Oral, BID, ity o f tablet 100 14:00: First dose [place] mg 00 (after Medical last Branch modificati on) on [facility] 05/10/20 at 0800, Until Discontinu ed, Routine
membership administrator approving Restricted medication : DERIC KELLER nystatin/ba 2019-06 Yes Topical Uni vers citracin-po 1-25 (Apply To ity of lymyxin b 16:08: [place]ffected [place] 1:1 11 Areas), Medical (COMPOUNDED PRN, Branch ) ointment Starting Oint Thu05/09/20 at 1008, Until Discontinu ed, Routine, Burn Care magnesium 2019-06 Yes 400mg 400 mg, Univ ers oxide 07-09 Oral, ity of (MAG-OX 15:00: DAILY, [place] 400) tablet 00 First dose Me dical 400 mg on Thu05/09/20 at 0900, Until Discontinu ed, Routine enoxaparin 2019-06 Yes 40mg 40 mg, Unive rs (LOVENOX) 07-09 Subcutaneo ity of injection 15:00: [place], [place]ILY, [place] 40 mg 00 First dose Medical (after Branch last modificati on) on Thu05/09/20 at 0900, Until Discontinu ed, Routine lacosamide 2019-06 No 200mg 200 mg, IV Univers (VIMPAT) 07-09 Piggyback, ity of 200 mg in 14:00: 16:06 ONCE, 1 [place] NaCl 0.9% 00 :00 dose, Thu Medic al (NS) 50 mL 05/09/20 Bran h piggyback at 0800, 50 mL
Facu lty member approving Restricted medication : DERIC KELLER magnesium 2019-06 Yes 800mg 800 mg, Univ ers oxide 07-08 Oral, BID, ity of (MAG-OX 21:00: [place] 400) tablet 00 (after Medica l 800 mg last Branch modificati on) on Thu05/08/20 at 1500, Until Discontinu ed, Routine acetaminoph 2019-06 Yes 650mg 650 mg, Un ismael en 07-08 Oral, ity of (TYLENOL) 20:36: Q6HPRN, [place] tablet 650 38 Starting Medic al mg 05/08/20 at 1436, Until Discontinu ed, Routine, Pain (scale 1-3) ibuprofen 2019-06 Yes 400mg 400 mg, Univ ers (IBU) -24 Oral, ity of tablet 400 20:36: Q6HPRN, [place] mg 14 Starting Medical [facility] 05/08/20 at 1436, Until Discontinu ed, Routine, Alternate with [place] for pain scale 4-6, Temp > 38.5 C morpHINE 2019-06 Yes 2mg 2 mg, Slow Uni vers injection 2 24 IV Push, ity of mg 20:36: Q3HPRN, [place] 05 Starting Medical Replaced By [facility] Branch 05/08/20 at 1436, Until Discontinu ed, Routine, Pain (scale 7-10) HYDROcodone 2019-06 Yes 1{tbl} 1 tablet, Univers -acetaminop 24 Oral, ity of hen (NORCO 20:35: Q6HPRN, [place] 5) 5-325 mg 53 Starting Medi jesica tablet 1 Thu Branch tablet 05/08/20 at 1435, Until Discontinu ed, Routine, Pain (scale 4-6) cloBAZam 2019-06 Yes 20mg 20 mg, Univers (ONFI) 2.5 24 Oral, BID, ity of mg/mL oral 13:00: First dose [place] suspension 00 (after Medical 20 mg last Branch modificati on) on Thu05/08/20 at 0700, Until Discontinu ed sulfamethox 2019-06 Yes 1{tbl} 1 tablet, Univers azole-trime 07-07 Oral, BID, it y of thoprim 02:00: [place] (BACTRIM 00 on [facility] DS) 800-160 05/06/20 Bran ch mg per at 1999, tablet 1 Until tablet Discontinu ed, SUSAN
Re ason for Anti-Infec tive: Empiric Therapy for Suspected Infection< br>Empiric Therapy Site: Abdominal< br>Duratio n of therapy: 7 days docusate 2019-06 Yes 100mg 100 mg, Unive rs (COLACE) 07-05 Oral, BID, ity o f capsule 100 02:00: First dose [place] mg 00 (after Medical last Branch modificati on) on Thu05/04/20 at 2000, Until Discontinu ed, Routine cloBAZam 2019-06 2020- No 30mg 30 mg, Univer s (ONFI) 2.5 07-05 Oral, QPM ity of mg/mL oral 02:00: 12:59 AT 1999, [place] suspension 00 :44 First dose Med ical 30 mg (after Branch last modificati on) on Thu05/04/20 at 1999, Until Discontinu ed sennosides 2019-06 Yes 8.6mg 8.6 mg, Uni vers (SENOKOT) 07-04 Oral, ity of tablet 8.6 15:00: DAILY, [place] mg 00 First dose Medical on Thu Branch 05/04/20 at 0900, Until Discontinu ed, Routine Polyethylen 2019-06 Yes 17g 17 g, [facility] Glycol 07-04 Oral, ity of 3350 15:00: DAILY, [place] (MIRALAX) 00 First dose Medi jesica powder 17 g on Thu Branch 05/04/20 at 0900, Until Discontinu ed, Routine enoxaparin 2019-06- No 40mg 40 mg, [facility] ers (LOVENOX) 07-04 Subcutaneo ity of injection 15:00: 20:35 us, DAILY, [place] 40 mg 00 :26 First dose Medical on Thu Branch 05/04/20 at 0900, Until Discontinu ed, Routine escitalopra 2019-06- No 5mg 5 mg, [facility] ers m oxalate 07-04 Oral, ity of (LEXAPRO) 15:00: 20:45 DAILY, [place] tablet 5 mg 00 :35 First dose Me dical on Thu Branch 05/04/20 at 0900, Until Discontinu ed, Routine magnesium 2019-06 No 400mg 400 mg, Uni vers oxide 07-04 Oral, BID, ity of (MAG-OX 14:45: 20:50 First dose [place] 400) tablet 00 :55 on Thu Medica l 400 mg 05/04/20 Branch at 0845, Until Discontinu ed, Routine meropenem 2019-06 No 1000mg 1,000 mg, Univers (MERREM) 07-04 IV ity of 1,000 mg in 14:45: 17:17 Piggyback, [place] NaCl 0.9% 00 :05 Administer Medi jesica (NS) 100 mL over 60 Branc h IV Minutes, piggyback Q8H ABX, First dose on Thu05/04/20 at 0845, Until Discontinu ed, SUSAN
Re stricted use approved by: EMILY 8TH FLOOR
R madina for Anti-Infec tive: Empiric Non-Surgic al Prophylaxi s
Durat ion of therapy: 7 days vancomycin 2019-06- No 15mg/kg 1,250 mg Univers 1250 mg in 07-04 (rounded ity of NS 250 mL 14:45: 17:17 from 1,170 [place] RTU IV 00 :05 mg = 15 Medical Piggyback mg/kg ?78 Branc h 1,250 mg kg), IV Piggyback, Q12H ABX, First dose on Thu05/04/20 at 0845, Until Discontinu ed
Reas on for Anti-Infec tive: Empiric Non-Surgic al Prophylaxi s
Du ration of therapy: 72 hours collagenase 2019-06 2020- No Topical Un ismael (SANTYL) 07-04 (Apply To ity o f ointment 14:27: 20:35 [place] 50 :24 Areas), Medical PRN, Branch Starting Thu05/04/20 at 0827, Until Thu05/08/20 at 1435, Routine, Burn wound care bisacodyL 2019-06 Yes 10mg 10 mg, Univer s (DULCOLAX) 07-04 Rectal, ity of suppository 14:19: QHSPRN, [place] 10 mg 26 Starting Medical [facility] Branch 05/04/20 at 0819, Until Discontinu ed, Routine, Constipati on unresolved by oral medication s levETIRAcet 2019-06 Yes 1500mg 1,500 mg, Univers am (KEPPRA) 07-04 Oral, BID, it y of tablet 02:00: First dose [place] 1,500 mg 00 on [facility] 05/03/20 Branch at 2000, Until Discontinu ed, Routine traMADoL 2019-06- No 50mg 50 mg, Univer s (ULTRAM) 07-03 Oral, ity of tablet 50 23:12: 20:35 Q6HPRN, [place] mg 31 :24 Starting Medical [facility] Branch 05/03/20 at 1712, Until Thu05/08/20 at 1435, Routine, Pain (scale 7-10) ondansetron 2019-06 Yes 4mg 4 mg, Slow Univers (ZOFRAN 07-03 IV Push, ity of (PF)) 22:49: Q6HPRN, [place] injection 4 15 Starting Medi jesica mg [facility] Branch 05/03/20 at 1649, Until Discontinu ed, Routine, Nausea and Vomiting (N/V) cloBAZam 2019-06- No 30mg QD Take 3 Method i (ONFI) 10 1-12 01-[address] mg tablet 00:00: 00:00 (30 mg Hospi ta 00 :00 total) by l mouth daily for 180 days. ergocalcife 2019-06 2020- No [id number] Q7D Take 1 M ethodi rol 0-31 12-[address] (VITAMIN 00:00: 05:59 (50,000 Hospi ta D2) 50,000 00 :00 Units l unit total) by capsule mouth once a week for 30 days. CLONAZEPAM 2019-06 Yes Take by [facility] ORAL 0-27 mouth. ity of 19:38: [address] CLONAZEPAM 2019-06 Yes Take by [facility] ORAL 0-27 mouth. ity of 19:38: [address] CLONAZEPAM 2019-06 Yes Take by Univ ers ORAL 0-27 mouth. ity of 19:38: [address] CLONAZEPAM 2019-06 Yes Take by Univ ers ORAL 0-27 mouth. ity of 19:38: [address] fluoxetine 2019-06 Yes Take by [facility] HCl (PROZAC 0-27 mouth. ity of ORAL) 19:37: [address] fluoxetine 2019-06 Yes Take by Univ ers HCl (PROZAC 0-27 mouth. ity of ORAL) 19:37: [address] fluoxetine 2019-06 Yes Take by Univ ers HCl (PROZAC 0-27 mouth. ity of ORAL) 19:37: [address] fluoxetine 2019-06 Yes Take by [facility] HCl (PROZAC 0-27 mouth. ity of ORAL) 19:37: [address] levETIRAcet 2019-06 2020- No 2250mg Q.5D Take 3 M ethodi am (KEPPRA) 0-25 11-[address] 750 MG 00:00: 05:59 (2,250 mg Hospi ta tablet 00 :00 total) by l mouth 2 (two) times a day for 30 days. cloBAZam 2019-06 2020- No 10mg Q.5D Take 1 Method i (ONFI) 10 0-24 11-12 tablet (10 st mg tablet 00:00: 00:00 mg total) [facility] 00 :00 by mouth 2 l (two) times a day for 30 days. levETIRAcet 2019-06 2020- No 1250mg Q.5D Take 5 M ethodi am (KEPPRA) 0-23 10-[address] 250 MG 00:00: 00:00 (1,250 mg Hospi ta tablet 00 :00 total) by l mouth 2 (two) times a day for 30 days. divalproex 2019- 2020- No 250mg Q.5D Take 250 M ethodi (DEPAKOTE) 0-01 10-[address] 250 MG EC 17:25: 00:00 mouth 2 [facility]osp [facility] tablet 56 :00 (two) l times a day. cloBAZam 2019-06 2020- No 10mg QD Take 1 Method i (ONFI) 10 0-01 10-24 tablet (10 st mg tablet 00:00: 00:00 mg total) [facility] 00 :00 by mouth l nightly for 180 days. levETIRAcet 2019- 2020- No 750mg Q.5D Take 750 Methodi am (KEPPRA) 8-08 10-[address] 750 MG 00:00: 00:00 mouth 2 Hospita tablet 00 :00 (two) l times a day. levETIRAcet 2019- 2020- No 1000mg 1,000 mg, Univers am (KEPPRA) 01-16 IV ity of in NACL 06:00: 05:30 Infusion, [place] (ISO-OS) 00 :00 ONCE, 1 Medical 1,000 dose, Tue Branch mg/100 mL 01/17/20 at RTU 0100, 100 mL NaCl 0.9% 2020- No 1000mL at 999 Uni vers (NS) bolus 01-16 mL/hr, ity of infusion 03:15: 05:45 1,000 mL, [place] 1,000 mL 00 :00 IV Medical Infusion, [place] ONCE, 1 dose, 01/16/20 at 2215, SUSAN ondansetron 2020- No 4mg 4 mg, Slow Univers (ZOFRAN 11-28 IV Push, ity of (PF)) 21:30: 21:54 ONCE, 1 [place] injection 4 00 :00 dose, Tue Med ical mg 11/29/19 at Branch 1630, SUSAN morpHINE 2019-0 2020- No 4mg 4 mg, Slow Un ismael injection 4 11-28 IV Push, ity of mg 21:30: 21:55 ONCE, 1 [place] 00 :00 dose, Tue Medical 11/29/19 at Branch 1630, STAT maalox:diph 2019-0 2020- No 15mL 15 mL, Uni vers enhydrAMINE 11-28 Oral, ity of :lidocaine 21:30: 21:57 ONCE, 1 [place] 2 % viscous 00 :00 dose, Tue Med ical 1:1:1 11/29/19 at [place] (FIRST-MOUT 1630, HWASH BLM) Routine oral suspension 15 mL NaCl 0.9% 0 2019- No 1000mL at [facility] Uni vers (NS) bolus 11-28 mL/hr, ity of infusion 21:30: 22:51 1,000 mL, [place] as 1,000 mL 00 :00 IV Medical Infusion, [place] ONCE, 1 dose, 11/29/19 at 1630, STAT iohexol 2019-0 2020- No 120mL 120 mL, Unive rs (OMNIPAQUE 11-28 Intravenou it y of 350 21:15: 21:05 s, ONCE, 1 [place] BULK-100 00 :00 dose, Tue Medica l mL) 11/29/19 at [place] injection 1615, 120 mL Routine MEDROXYPROG 2020-0 Yes [id number] TAKE 1 U nivers ESTERONE 10 4-28 TABLET BY ity of mg tablet 00:00: MOUTH [place] 00 EVERY DAY [facility] MEDROXYPROG 2020-0 Yes [id number] TAKE 1 U nivers ESTERONE 10 4-28 TABLET BY ity of mg tablet 00:00: MOUTH [place] 00 EVERY DAY [facility] MEDROXYPROG 2020-0 Yes [id number] TAKE 1 U nivers ESTERONE 10 4-28 TABLET BY ity of mg tablet 00:00: MOUTH [place] 00 EVERY DAY [facility] MEDROXYPROG 2020-0 Yes [id number] TAKE 1 U nivers ESTERONE 10 4-28 TABLET BY ity of mg tablet 00:00: MOUTH [place] 00 EVERY DAY [facility] MEDROXYPROG 2020-0 Yes [id number] TAKE 1 U nivers ESTERONE 10 4-28 TABLET BY ity of mg tablet 00:00: MOUTH [place] 00 EVERY DAY Medical Branch MEDROXYPROG 2020-0 Yes [id number] TAKE 1 U nivers ESTERONE 10 4-28 TABLET BY ity of mg tablet 00:00: MOUTH [place] 00 EVERY DAY Medical Branch MEDROXYPROG 2020-0 Yes [id number] TAKE 1 U nivers ESTERONE 10 4-28 TABLET BY ity of mg tablet 00:00: MOUTH [place] 00 EVERY DAY Medical Branch MEDROXYPROG 2020-0 Yes [id number] TAKE 1 U nivers ESTERONE 10 4-28 TABLET BY ity of mg tablet 00:00: MOUTH [place] 00 EVERY DAY Medical Branch MEDROXYPROG 2020-0 Yes [id number] TAKE 1 U nivers ESTERONE 10 4-28 TABLET BY ity of mg tablet 00:00: MOUTH [place] 00 EVERY DAY Medical Branch MEDROXYPROG 2020-0 Yes [id number] TAKE 1 U nivers ESTERONE 10 4-28 TABLET BY ity of mg tablet 00:00: [facility] EVERY DAY Medical Branch MEDROXYPROG 2020-0 Yes [id number] TAKE 1 U nivers ESTERONE 10 4-28 TABLET BY ity of mg tablet 00:00: MOUTH [place] 00 EVERY DAY Medical Branch MEDROXYPROG 2020-0 Yes [id number] TAKE 1 U nivers ESTERONE 10 4-28 TABLET BY ity of mg tablet 00:00: MOUTH [place] 00 EVERY DAY Medical Branch MEDROXYPROG 2020-0 Yes [id number] TAKE 1 U nivers ESTERONE 10 4-28 TABLET BY ity of mg tablet 00:00: [facility] 00 EVERY DAY Medical Branch MEDROXYPROG 2020-0 Yes [id number] TAKE 1 U nivers ESTERONE 10 4-28 TABLET BY ity of mg tablet 00:00: [facility] 00 EVERY DAY Medical Branch MEDROXYPROG 2020-0 Yes [id number] TAKE 1 U nivers ESTERONE 10 4-28 TABLET BY ity of mg tablet 00:00: MOUTH [place] 00 EVERY DAY Medical Branch MEDROXYPROG 2020-0 Yes [id number] TAKE 1 U nivers ESTERONE 10 4-28 TABLET BY ity of mg tablet 00:00: MOUTH [place] 00 EVERY DAY Medical Branch MEDROXYPROG 2020-0 Yes [id number] TAKE 1 U nivers ESTERONE 10 4-28 TABLET BY ity of mg tablet 00:00: [facility] 00 EVERY DAY Medical Branch MEDROXYPROG 2020-0 Yes [id number] TAKE 1 U nivers ESTERONE 10 4-28 TABLET BY ity of mg tablet 00:00: MOUTH [place] 00 EVERY DAY Medical Branch MEDROXYPROG 2020-0 Yes [id number] TAKE 1 U nivers ESTERONE 10 4-28 TABLET BY ity of mg tablet 00:00: MOUTH [place] 00 EVERY DAY Medical Branch MEDROXYPROG 2020-0 Yes [id number] TAKE 1 U nivers ESTERONE 10 4-28 TABLET BY ity of mg tablet 00:00: MOUTH [place] 00 EVERY DAY Medical Branch MEDROXYPROG 2020-0 Yes [id number] TAKE 1 U nivers ESTERONE 10 4-28 TABLET BY ity of mg tablet 00:00: MOUTH [place] 00 EVERY DAY Medical Branch MEDROXYPROG 2020-0 Yes [id number] TAKE 1 U nivers ESTERONE 10 4-28 TABLET BY ity of mg tablet 00:00: MOUTH [place] 00 EVERY DAY Medical Branch MEDROXYPROG 2020-0 Yes [id number] TAKE 1 U nivers ESTERONE 10 4-28 TABLET BY ity of mg tablet 00:00: MOUTH [place] 00 EVERY DAY Medical Branch MEDROXYPROG 2020-0 Yes [id number] TAKE 1 U nivers ESTERONE 10 4-28 TABLET BY ity of mg tablet 00:00: MOUTH [place] 00 EVERY DAY Medical Branch MEDROXYPROG 2020-0 Yes [id number] TAKE 1 U nivers ESTERONE 10 4-28 TABLET BY ity of mg tablet 00:00: MOUTH [place] 00 EVERY DAY Medical Branch MEDROXYPROG 2020-0 Yes [id number] TAKE 1 U nivers ESTERONE 10 4-28 TABLET BY ity of mg tablet 00:00: [facility] 00 EVERY DAY Medical Branch MEDROXYPROG 2020-0 Yes [id number] TAKE 1 U nivers ESTERONE 10 4-28 TABLET BY ity of mg tablet 00:00: MOUTH [place] 00 EVERY DAY Medical Branch MEDROXYPROG 2020-0 Yes [id number] TAKE 1 U nivers ESTERONE 10 4-28 TABLET BY ity of mg tablet 00:00: MOUTH [place] 00 EVERY DAY Medical Branch MEDROXYPROG 2020-0 Yes [id number] TAKE 1 U nivers ESTERONE 10 4-28 TABLET BY ity of mg tablet 00:00: MOUTH [place] 00 EVERY DAY Medical Branch MEDROXYPROG 2020-0 Yes [id number] TAKE 1 U nivers ESTERONE 10 4-28 TABLET BY ity of mg tablet 00:00: MOUTH [place] 00 EVERY DAY Medical Branch MEDROXYPROG 2020-0 Yes [id number] TAKE 1 U nivers ESTERONE 10 4-28 TABLET BY ity of mg tablet 00:00: MOUTH [place] 00 EVERY DAY Medical Branch MEDROXYPROG 2020-0 Yes [id number] TAKE 1 U nivers ESTERONE 10 4-28 TABLET BY ity of mg tablet 00:00: MOUTH [place] 00 EVERY DAY Medical Branch MEDROXYPROG 2020-0 Yes [id number] TAKE 1 U nivers ESTERONE 10 4-28 TABLET BY ity of mg tablet 00:00: MOUTH [place] 00 EVERY DAY Medical Branch MEDROXYPROG 2020-0 Yes [id number] TAKE 1 U nivers ESTERONE 10 4-28 TABLET BY ity of mg tablet 00:00: MOUTH [place] 00 EVERY DAY Medical Branch MEDROXYPROG 2020-0 Yes [id number] TAKE 1 U nivers ESTERONE 10 4-28 TABLET BY ity of mg tablet 00:00: MOUTH [place] 00 EVERY DAY Medical Branch MEDROXYPROG 2020-0 Yes [id number] TAKE 1 U nivers ESTERONE 10 4-28 TABLET BY ity of mg tablet 00:00: MOUTH [place] 00 EVERY DAY Medical Branch medroxyPROG 2020-0 Yes [id number] 10mg Take 1 U nivers ESTERone 4-23 tablet by ity of (PROVERA) 00:00: mouth [place] 10 mg 00 daily. Medical tablet Branch medroxyPROG 2020-0 2020- No [id number] 10mg Take 1 Univers ESTERone 4-23 04-28 tablet by ity o f (PROVERA) 00:00: 00:00 mouth [place] 10 mg 00 :00 daily. Medical tablet Branch metroNIDAZO 2020-0 2020- No [id number] 500mg Take 1 Univers LE 500 mg 2-28 -07 tablet by ity of tablet 00:00: 05:59 mouth 2 [place] 00 :00 (two) Medical times Branch daily for 7 days. metroNIDAZO 2020-0 2020- No [id number] 500mg Take 1 Univers LE 500 mg 2-28 03-07 tablet by ity of tablet 00:00: 05:59 mouth 2 [place] 00 :00 (two) Medical times Branch daily for 7 days. perampanel 2020-0 Yes 4mg Take 4 mg Un ismael 4 mg Tab 2-26 by mouth 2 ity o f 20:38: (two) [place] 05 times Medical daily. Branch fluoxetine 2020-0 Yes Take by Univ ers HCl (PROZAC 2-26 mouth. ity of ORAL) 20:38: Medical Branch perampanel 2020-0 Yes 4mg Take 4 mg Un ismael 4 mg Tab 2-26 by mouth 2 ity o f 20:38: (two) [place] 05 times Medical daily. Branch fluoxetine 2020-0 Yes Take by Univ ers HCl (PROZAC 2-26 mouth. ity of ORAL) 20:38: Medical Branch perampanel 2020-0 Yes 4mg Take 4 mg Un [place] 4 mg Tab 2-26 by mouth 2 ity o f 20:38: (two) [place] 05 times Medical daily. Branch fluoxetine 2020-0 Yes Take by Univ ers HCl (PROZAC 2-26 mouth. ity of ORAL) 20:38: Medical Branch perampanel 2020-0 Yes 4mg Take 4 mg Un [place] 4 mg Tab 2-26 by mouth 2 ity o f 20:38: (two) [place] 05 times Medical daily. Branch fluoxetine 2020-0 Yes Take by Univ ers HCl (PROZAC 2-26 mouth. ity of ORAL) 20:38: [place] Medical Branch perampanel 2020-0 Yes 4mg Take 4 mg Un ismael 4 mg Tab 2-26 by mouth 2 ity o f 20:38: (two) [place] 05 times Medical daily. Branch fluoxetine 2020-0 Yes Take by Univ ers HCl (PROZAC 2-26 mouth. ity of ORAL) 20:38: [place] Medical Branch perampanel 2020-0 Yes 4mg Take 4 mg Un ismael 4 mg Tab 2-26 by mouth 2 ity o f 20:38: (two) [place] 05 times Medical daily. Branch fluoxetine 2020-0 Yes Take by Univ ers HCl (PROZAC 2-26 mouth. ity of ORAL) 20:38: [place] Medical Branch perampanel 2020-0 Yes 4mg Take 4 mg Un [place]mael 4 mg Tab 2-26 by mouth 2 ity o f 20:38: (two) [place] 05 times Medical daily. Branch fluoxetine 2020-0 Yes Take by Univ ers HCl (PROZAC 2-26 mouth. ity of ORAL) 20:38: [place] [address] Medical Branch perampanel 2020-0 Yes 4mg Take 4 mg Un ismael 4 mg Tab 2-26 by mouth 2 ity o f 20:38: (two) [place] 05 times Medical daily. Branch fluoxetine 2020-0 Yes Take by Univ ers HCl (PROZAC 2-26 mouth. ity of ORAL) 20:38: Medical Branch perampanel 2020-0 Yes 4mg Take 4 mg [place] 4 mg Tab 2-26 by mouth 2 ity o f 20:38: (two) [place] 05 times Medical daily. Branch fluoxetine 2020-0 Yes Take by Univ ers HCl (PROZAC 2-26 mouth. ity of ORAL) 20:38: Medical Branch perampanel 2020-0 Yes 4mg Take 4 mg [place] 4 mg Tab 2-26 by mouth 2 ity o f 20:38: (two) [place] 05 times Medical daily. Branch fluoxetine 2020-0 Yes Take by Univ ers HCl (PROZAC 2-26 mouth. ity of ORAL) 20:38: [place] Medical Branch perampanel 2020-0 Yes 4mg Take 4 mg Un ismael 4 mg Tab 2-26 by mouth 2 ity o f 20:38: (two) [place] 05 times Medical daily. Branch fluoxetine 2020-0 Yes Take by Univ ers HCl (PROZAC 2-26 mouth. ity of ORAL) 20:38: [place] Medical Branch perampanel 2020-0 Yes 4mg Take 4 mg Un [place]mael 4 mg Tab 2-26 by mouth 2 ity o f 20:38: (two) [place] 05 times Medical daily. Branch fluoxetine 2020-0 Yes Take by Univ ers HCl (PROZAC 2-26 mouth. ity of ORAL) 20:38: Medical Branch perampanel 2020-0 Yes 4mg Take 4 mg [place] 4 mg Tab 2-26 by mouth 2 ity o f 20:38: (two) [place] 05 times Medical daily. Branch fluoxetine 2020-0 Yes Take by Univ ers HCl (PROZAC 2-26 mouth. ity of ORAL) 20:38: [place] Medical Branch perampanel 2020-0 Yes 4mg Take 4 mg Un ismael 4 mg Tab 2-26 by mouth 2 ity o f 20:38: (two) [place] 05 times Medical daily. Branch fluoxetine 2020-0 Yes Take by Univ ers HCl (PROZAC 2-26 mouth. ity of ORAL) 20:38: [place] 05 Medical Branch perampanel 2020-0 Yes 4mg Take 4 mg Un [place]mael 4 mg Tab 2-26 by mouth 2 ity o f 20:38: (two) [place] 05 times Medical daily. Branch perampanel 2020-0 Yes 4mg Take 4 mg Un [place]mael 4 mg Tab 2-26 by mouth 2 ity o f 20:38: (two) [place] 05 times Medical daily. Branch perampanel 2020-0 Yes 4mg Take 4 mg Un [place]el 4 mg Tab 2-26 by mouth 2 ity o f 20:38: (two) [place] 05 times Medical daily. Branch perampanel 2020-0 Yes 4mg Take 4 mg Un [place] 4 mg Tab 2-26 by mouth 2 ity o f 20:38: (two) [place] 05 times Medical daily. Branch medroxyPROG 2020-0 2020- No [id number] 10mg Take 1 Univers ESTERone 10 2-26 03-08 tablet by it y of mg tablet 00:00: 05:59 mouth [place] 00 :00 daily for Medical 10 days. Branch medroxyPROG 2020-0 2020- No [id number] 10mg Take 1 Univers ESTERone 10 2-26 03-08 tablet by it y of mg tablet 00:00: 05:59 mouth [place] 00 :00 daily for Medical 10 days. Branch medroxyPROG 2020-0 2020- No [id number] 10mg Take 1 Univers ESTERone 10 2-26 03-08 tablet by it y of mg tablet 00:00: 05:59 mouth [place] 00 :00 daily for Medical 10 days. Branch medroxyPROG 2020-0 2020- No [id number] 10mg Take 1 Univers ESTERone 10 2-26 03-08 tablet by it y of mg tablet 00:00: 05:59 mouth [place] 00 :00 daily for Medical 10 days. Branch perampanel 2019-0 Yes 4mg Take 4 mg Un ismael 4 mg Tab 8-23 by mouth 2 ity o f 23:50: (two) [place] 35 times Medical daily. Branch perampanel 2019-0 Yes 4mg Take 4 mg Un ismael 4 mg Tab 8-23 by mouth 2 ity o f 23:50: (two) [place] 35 times Medical daily. Branch perampanel 2019-0 Yes 4mg Take 4 mg Un [place]mael 4 mg Tab 02-04 by mouth 2 ity o f 23:50: (two) [place] 35 times Medical daily. Branch perampanel Yes 4mg Take 4 mg Un [place]el 4 mg Tab 02-04 by mouth 2 ity o f 23:50: (two) [place] 35 times Medical daily. Branch phenytoin Yes 100mg 100 mg, Univ ers Extended 02-04 Oral, TID, ity o f (DILANTIN 13:00: [place] KAPSEAL) 00 on Thu Medical capsule 100 02/04/19 at Br anch mg 0800, Until Discontinu ed, Routine potassium 2019- No 40meq 40 mEq, IV Univers acetate 40 02-04 Piggyback, it y of mEq in NaCl 08:30: 08:22 ONCE, 1 [place] 0.9% (NS) 00 :00 dose, Thu Medic al piggyback 02/04/19 at [facility] 0330, 250 mL KCL 2018- No 40meq 40 mEq, Univers (KLOR-CON 02-04 Oral, ity of M20) tablet 08:30: 07:53 ONCE, 1 [place] 40 mEq 00 :00 dose, [facility] Medical 02/04/19 at Branch 0330, Routine levETIRAcet Yes 1500mg 1,500 mg, Univers am (KEPPRA) 02-04 Oral, BID, it y of tablet 03:00: First dose [place] 1,500 mg 00 on [facility] 02/03/19 at Branch 2200, Until Discontinu ed, Routine heparin Yes 5000U 5,000 Univers injection 02-04 Units, ity of 5,000 Units 03:00: Subcutaneo [place] 00 us, Q8H, Medical First dose Branch on [facility] 02/03/19 at 2200, Until Discontinu ed, Routine acetaminoph Yes 650mg 650 mg, Un ismael en 02-04 Oral, ity of (TYLENOL) 01:51: Q6HPRN, [place] tablet 650 28 Starting Medic al mg [facility] 02/03/19 at 2051, Until Discontinu ed, Routine, Pain (scale 1-3) fosphenytoi 2019- No 20mg{ph 1,408 mg Univers n (CEREBYX) 02-04 enytoin PE (20 mg ity of injection 00:45: 23:58 'equiva PE/kg Kehinde as 1,408 mg PE 00 :00 lent}/k ?70.4 kg), Medical g IV Branch Piggyback, ONCE, 1 dose, [facility] 02/03/19 at 1945, SUSAN rufinamide 2018- Yes [id number] 400mg Take 1 [facility]- [facility] by [facility] 400 mg 00:00: mouth 2 [place] tablet 00 (two) Medical times [facility] daily with meals. rufinamide Yes [id number] 400mg Take 1 [facility] 8- tablet [facility] 400 mg 00:00: mouth 2 [place] tablet 00 (two) Medical times [facility] daily with meals. rufinamide Yes [id number] 400mg Take 1 [facility] ([facility] 8- 4105 tablet by [facility] 400 mg 00:00: mouth 2 [place] tablet 00 (two) Medical times [facility] daily with meals. rufinamide Yes [id number] 400mg Take 1 [facility] ([facility]) 8- 4105 tablet by [facility] 400 mg 00:00: mouth 2 [place] tablet 00 (two) Medical times [facility] daily with meals. rufinamide 0 Yes [id number] 400mg Take 1 [facility] ([facility]) 8- 4105 tablet by [facility] 400 mg 00:00: mouth 2 [place] tablet 00 (two) Medical times [facility] daily with meals. rufinamide 0 Yes [id number] 400mg Take 1 [facility] ([facility]) 8- 4105 tablet by [facility] 400 mg 00:00: mouth 2 [place] tablet 00 (two) Medical times [facility] daily with meals. rufinamide 0 Yes [id number] 400mg Take 1 [facility] ([facility]) 8-23 4105 tablet by [facility] 400 mg 00:00: mouth 2 [place] tablet 00 (two) Medical times [facility] daily with meals. rufinamide 0 Yes [id number] 400mg Take 1 [facility] ([facility]) 8-23 4105 tablet by [facility] 400 mg 00:00: mouth 2 [place] tablet 00 (two) Medical times [facility] daily with meals. rufinamide 2018-0 Yes [id number] 400mg Take 1 [facility] ([facility]) 8-23 4105 tablet by [facility] 400 mg 00:00: mouth 2 [place] tablet 00 (two) Medical times [facility] daily with meals. rufinamide 2018-0 Yes [id number] 400mg Take 1 [facility] ([facility]) 8-23 4105 tablet by [facility] 400 mg 00:00: mouth 2 [place] tablet 00 (two) Medical times [facility] daily with meals. rufinamide 2018-0 Yes [id number] 400mg Take 1 [facility] ([facility]) 8-23 4105 tablet by [facility] 400 mg 00:00: mouth 2 [place] tablet 00 (two) Medical times [facility] daily with meals. rufinamide Yes [id number] 400mg Take 1 [facility] ([facility]) 8-23 4105 tablet by [facility] 400 mg 00:00: mouth 2 [place] tablet 00 (two) Medical times [facility] daily with meals. rufinamide Yes [id number] 400mg Take 1 [facility] ([facility]) 8-23 4105 tablet by [facility] 400 mg 00:00: mouth 2 [place] tablet 00 (two) Medical times [facility] daily with meals. rufinamide Yes [id number] 400mg Take 1 [facility] ([facility]) 8-23 4105 tablet by [facility] 400 mg 00:00: mouth 2 [place] tablet 00 (two) Medical times [facility] daily with meals. rufinamide 0 Yes [id number] 400mg Take 1 [facility] ([facility]) 8-23 4105 tablet by [facility] 400 mg 00:00: mouth 2 [place] tablet 00 (two) Medical times [facility] daily with meals. rufinamide 2018-0 Yes [id number] 400mg Take 1 [facility] ([facility]) 8-23 4105 tablet by [facility] 400 mg 00:00: mouth 2 [place] tablet 00 (two) Medical times [facility] daily with meals. rufinamide 2018-0 Yes [id number] 400mg Take 1 [facility] ([facility]) 8-23 4105 tablet by [facility] 400 mg 00:00: mouth 2 [place] tablet 00 (two) Medical times [facility] daily with meals. rufinamide 2018-0 Yes [id number] 400mg Take 1 [facility] ([facility]) 8-23 4105 tablet by [facility] 400 mg 00:00: mouth 2 [place] tablet 00 (two) Medical times [facility] daily with meals. rufinamide 2019-0 Yes [id number] 400mg Take 1 [facility] ([facility]) 8-23 4105 tablet by [facility] 400 mg 00:00: mouth 2 [place] tablet 00 (two) Medical times [facility] daily with meals. rufinamide 2019-0 Yes [id number] 400mg Take 1 [facility] ([facility]) 8-23 4105 tablet by [facility] 400 mg 00:00: mouth 2 [place] tablet 00 (two) Medical times [facility] daily with meals. rufinamide 2019-0 Yes [id number] 400mg Take 1 [facility] ([facility]) 8-23 4105 tablet by [facility] 400 mg 00:00: mouth 2 [place] tablet 00 (two) Medical times [facility] daily with meals. rufinamide 2019-0 Yes [id number] 400mg Take 1 [facility] ([facility]) 8-23 4105 tablet by [facility] 400 mg 00:00: mouth 2 [place] tablet 00 (two) Medical times [facility] daily with meals. rufinamide 2018-0 Yes [id number] 400mg Take 1 [facility] ([facility]) 8-23 4105 tablet by [facility] 400 mg 00:00: mouth 2 [place] tablet 00 (two) Medical times [facility] daily with meals. rufinamide 2018-0 Yes [id number] 400mg Take 1 [facility] ([facility]) 8-23 4105 tablet by [facility] 400 mg 00:00: mouth 2 [place] tablet 00 (two) Medical times [facility] daily with meals. rufinamide 2018-0 Yes [id number] 400mg Take 1 [facility] ([facility]) 8-23 4105 tablet by [facility] 400 mg 00:00: mouth 2 [place] tablet 00 (two) Medical times [facility] daily with meals. rufinamide 2019-0 Yes [id number] 400mg Take 1 [facility] ([facility]) 8-23 4105 tablet by [facility] 400 mg 00:00: mouth 2 [place] tablet 00 (two) Medical times [facility] daily with meals. rufinamide 2019-0 Yes [id number] 400mg Take 1 [facility] ([facility]) 8-23 4105 tablet by [facility] 400 mg 00:00: mouth 2 [place] tablet 00 (two) Medical times [facility] daily with meals. rufinamide 2019-0 Yes [id number] 400mg Take 1 [facility] ([facility]) 8-23 4105 tablet by [facility] 400 mg 00:00: mouth 2 [place] tablet 00 (two) Medical times [facility] daily with meals. rufinamide 2019-0 Yes [id number] 400mg Take 1 [facility] ([facility]) 8-23 4105 tablet by [facility] 400 mg 00:00: mouth 2 [place] tablet 00 (two) Medical times [facility] daily with meals. rufinamide 2019-0 Yes [id number] 400mg Take 1 [facility] ([facility]) 8-23 4105 tablet by [facility] 400 mg 00:00: mouth 2 [place] tablet 00 (two) Medical times [facility] daily with meals. rufinamide 2018-0 Yes [id number] 400mg Take 1 [facility] ([facility]) 8-23 4105 tablet by [facility] 400 mg 00:00: mouth 2 [place] tablet 00 (two) Medical times [facility] daily with meals. rufinamide 2018-0 Yes [id number] 400mg Take 1 [facility] ([facility]) 8-23 4105 tablet by [facility] 400 mg 00:00: mouth 2 [place] tablet 00 (two) Medical times [facility] daily with meals. rufinamide 2018-0 Yes [id number] 400mg Take 1 [facility] ([facility]) 8-23 4105 tablet by [facility] 400 mg 00:00: mouth 2 [place] tablet 00 (two) Medical times [facility] daily with meals. rufinamide 2018-0 Yes [id number] 400mg Take 1 [facility] ([facility]) 8-23 tablet by [facility] 400 mg 00:00: mouth 2 [place] tablet 00 (two) Medical times [facility] daily with meals. rufinamide 0 Yes [id number] 400mg Take 1 [facility] ([facility]) 8-23 4105 tablet by [facility] 400 mg 00:00: mouth 2 [place] tablet 00 (two) Medical times [facility] daily with meals. rufinamide 2018-0 Yes [id number] 400mg Take 1 [facility] ([facility]) 8-23 4105 tablet by [facility] 400 mg 00:00: mouth 2 [place] tablet 00 (two) Medical times [facility] daily with meals. rufinamide 2019-0 Yes [id number] 400mg Take 1 [facility] ([facility]) 8-23 4105 tablet by [facility] 400 mg 00:00: mouth 2 [place] tablet 00 (two) Medical times [facility] daily with meals. rufinamide 2019-0 Yes [id number] 400mg Take 1 [facility] ([facility]) 8-23 4105 tablet by [facility] 400 mg 00:00: mouth 2 [place] tablet 00 (two) Medical times [facility] daily with meals. rufinamide 2019-0 Yes [id number] 400mg Take 1 [facility] ([facility]) 8-23 4105 tablet by [facility] 400 mg 00:00: mouth 2 [place] tablet 00 (two) Medical times [facility] daily with meals. rufinamide 2019-0 Yes [id number] 400mg Take 1 [facility] ([facility]) 8-23 4105 tablet by [facility] 400 mg 00:00: mouth 2 [place] tablet 00 (two) Medical times [facility] daily with meals. rufinamide 2019-0 Yes [id number] 400mg Take 1 [facility] ([facility]) 8-23 4105 tablet by [facility] 400 mg 00:00: mouth 2 [place] tablet 00 (two) Medical times [facility] daily with meals. rufinamide 2019-0 Yes [id number] 400mg Take 1 [facility] ([facility]) 8-23 4105 tablet by [facility] 400 mg 00:00: mouth 2 [place] tablet 00 (two) Medical times [facility] daily with meals. rufinamide 2018-0 Yes [id number] 400mg Take 1 [facility] ([facility]) 8-23 4105 tablet by [facility] 400 mg 00:00: mouth 2 [place] tablet 00 (two) Medical times [facility] daily with meals. rufinamide 2018-0 Yes [id number] 400mg Take 1 [facility] ([facility]) 8-23 4105 tablet by [facility] 400 mg 00:00: mouth 2 [place] tablet 00 (two) Medical times [facility] daily with meals. rufinamide 2018-0 Yes [id number] 400mg Take 1 [facility] ([facility] 8-23 4105 tablet by [facility] 400 mg 00:00: mouth 2 [place] tablet 00 (two) Medical times [facility] daily with meals. ibuprofen 2019-0 Yes [id number] 600mg Take 1 [facility] 600 mg 6-07 tablet by [facility] tablet 00:00: mouth [place] 00 every 6 Medical (six) Branch hours as needed for Pain (scale 1-3) or Pain (scale 4-6). ibuprofen 2019-0 Yes [id number] 600mg Take 1 [facility] 600 mg 6-07 tablet by [facility] tablet 00:00: mouth [place] 00 every 6 Medical (six) Branch hours as needed for Pain (scale 1-3) or Pain (scale 4-6). ibuprofen 2019-0 Yes [id number] 600mg Take 1 [facility] 600 mg 6-07 tablet by [facility] tablet 00:00: mouth [place] 00 every 6 Medical (six) Branch hours as needed for Pain (scale 1-3) or Pain (scale 4-6). ibuprofen 2019 Yes [id number] 600mg Take 1 [facility] 600 mg 6-07 tablet by [facility] tablet 00:00: mouth [place] 00 every 6 Medical (six) Branch hours as needed for Pain (scale 1-3) or Pain (scale 4-6). ibuprofen 2019 Yes [id number] 600mg Take 1 [facility] 600 mg 6-07 tablet by [facility] tablet 00:00: mouth [place] 00 every 6 Medical (six) Branch hours as needed for Pain (scale 1-3) or Pain (scale 4-6). ibuprofen Yes [id number] 600mg Take 1 [facility] 600 mg 6-07 tablet by [facility] tablet 00:00: mouth [place] 00 every 6 Medical (six) Branch hours as needed for Pain (scale 1-3) or Pain (scale 4-6). ibuprofen Yes [id number] 600mg Take 1 [facility] 600 mg 6-07 tablet by [facility] tablet 00:00: mouth [place] 00 every 6 Medical (six) Branch hours as needed for Pain (scale 1-3) or Pain (scale 4-6). ibuprofen Yes [id number] 600mg Take 1 [facility] 600 mg 6-07 tablet by [facility] tablet 00:00: mouth [place] 00 every 6 Medical (six) Branch hours as needed for Pain (scale 1-3) or Pain (scale 4-6). ibuprofen 0 Yes [id number] 600mg Take 1 [facility] 600 mg 6-07 tablet by [facility] tablet 00:00: mouth [place] 00 every 6 Medical (six) Branch hours as needed for Pain (scale 1-3) or Pain (scale 4-6). ibuprofen 20190 Yes [id number] 600mg Take 1 [facility] 600 mg 6-07 tablet by [facility] tablet 00:00: mouth [place] 00 every 6 Medical (six) Branch hours as needed for Pain (scale 1-3) or Pain (scale 4-6). ibuprofen 20190 Yes [id number] 600mg Take 1 [facility] 600 mg 6-07 tablet by [facility] tablet 00:00: mouth [place] 00 every 6 Medical (six) Branch hours as needed for Pain (scale 1-3) or Pain (scale 4-6). ibuprofen 2019-0 Yes [id number] 600mg Take 1 [facility] 600 mg 6-07 tablet by [facility] tablet 00:00: mouth [place] 00 every 6 Medical (six) Branch hours as needed for Pain (scale 1-3) or Pain (scale 4-6). ibuprofen 2019-0 Yes [id number] 600mg Take 1 [facility] 600 mg 6-07 tablet by [facility] tablet 00:00: mouth [place] 00 every 6 Medical (six) Branch hours as needed for Pain (scale 1-3) or Pain (scale 4-6). ibuprofen 0 Yes [id number] 600mg Take 1 [facility] 600 mg 6-07 tablet by [facility] tablet 00:00: mouth [place] 00 every 6 Medical (six) Branch hours as needed for Pain (scale 1-3) or Pain (scale 4-6). ibuprofen Yes [id number] 600mg Take 1 [facility] 600 mg 6-07 tablet by [facility] tablet 00:00: mouth [place] 00 every 6 Medical (six) Branch hours as needed for Pain (scale 1-3) or Pain (scale 4-6). ibuprofen 0 Yes [id number] 600mg Take 1 [facility] 600 mg 6-07 tablet by [facility] tablet 00:00: mouth [place] 00 every 6 Medical (six) Branch hours as needed for Pain (scale 1-3) or Pain (scale 4-6). ibuprofen 0 Yes [id number] 600mg Take 1 [facility] 600 mg 6-07 tablet by [facility] tablet 00:00: mouth [place] 00 every 6 Medical (six) Branch hours as needed for Pain (scale 1-3) or Pain (scale 4-6). ibuprofen 20190 Yes [id number] 600mg Take 1 [facility] 600 mg 6-07 tablet by [facility] tablet 00:00: mouth [place] 00 every 6 Medical (six) Branch hours as needed for Pain (scale 1-3) or Pain (scale 4-6). ibuprofen 20190 Yes [id number] 600mg Take 1 [facility] 600 mg 6-07 tablet by [facility] tablet 00:00: mouth [place] 00 every 6 Medical (six) Branch hours as needed for Pain (scale 1-3) or Pain (scale 4-6). ibuprofen 2019 Yes [id number] 600mg Take 1 [facility] 600 mg 6-07 tablet by [facility] tablet 00:00: mouth [place] 00 every 6 Medical (six) Branch hours as needed for Pain (scale 1-3) or Pain (scale 4-6). ibuprofen Yes [id number] 600mg Take 1 [facility] 600 mg 6-07 tablet by [facility] tablet 00:00: mouth [place] 00 every 6 Medical (six) Branch hours as needed for Pain (scale 1-3) or Pain (scale 4-6). ibuprofen Yes [id number] 600mg Take 1 [facility] 600 mg 6-07 tablet by [facility] tablet 00:00: mouth [place] 00 every 6 Medical (six) Branch hours as needed for Pain (scale 1-3) or Pain (scale 4-6). ibuprofen Yes [id number] 600mg Take 1 [facility] 600 mg 6-07 tablet by [facility] tablet 00:00: mouth [place] 00 every 6 Medical (six) Branch hours as needed for Pain (scale 1-3) or Pain (scale 4-6). ibuprofen Yes [id number] 600mg Take 1 [facility] 600 mg 6-07 tablet by [facility] tablet 00:00: mouth [place] 00 every 6 Medical (six) Branch hours as needed for Pain (scale 1-3) or Pain (scale 4-6). ibuprofen 0 Yes [id number] 600mg Take 1 [facility] 600 mg 6-07 tablet by [facility] tablet 00:00: mouth [place] 00 every 6 Medical (six) Branch hours as needed for Pain (scale 1-3) or Pain (scale 4-6). ibuprofen 0 Yes [id number] 600mg Take 1 [facility] 600 mg 6-07 tablet by [facility] tablet 00:00: mouth [place] 00 every 6 Medical (six) Branch hours as needed for Pain (scale 1-3) or Pain (scale 4-6). ibuprofen 20190 Yes [id number] 600mg Take 1 [facility] 600 mg 6-07 tablet by [facility] tablet 00:00: mouth [place] 00 every 6 Medical (six) Branch hours as needed for Pain (scale 1-3) or Pain (scale 4-6). ibuprofen 20190 Yes [id number] 600mg Take 1 [facility] 600 mg 6-07 tablet by [facility] tablet 00:00: mouth [place] 00 every 6 Medical (six) Branch hours as needed for Pain (scale 1-3) or Pain (scale 4-6). ibuprofen 2019 Yes [id number] 600mg Take 1 [facility] 600 mg 6-07 tablet by [facility] tablet 00:00: mouth [place] 00 every 6 Medical (six) Branch hours as needed for Pain (scale 1-3) or Pain (scale 4-6). ibuprofen 2019 Yes [id number] 600mg Take 1 [facility] 600 mg 6-07 tablet by [facility] tablet 00:00: mouth [place] 00 every 6 Medical (six) Branch hours as needed for Pain (scale 1-3) or Pain (scale 4-6). ibuprofen Yes [id number] 600mg Take 1 [facility] 600 mg 6-07 tablet by [facility] tablet 00:00: mouth [place] 00 every 6 Medical (six) Branch hours as needed for Pain (scale 1-3) or Pain (scale 4-6). ibuprofen Yes [id number] 600mg Take 1 [facility] 600 mg 6-07 tablet by [facility] tablet 00:00: mouth [place] 00 every 6 Medical (six) Branch hours as needed for Pain (scale 1-3) or Pain (scale 4-6). ibuprofen Yes [id number] 600mg Take 1 [facility] 600 mg 6-07 tablet by [facility] tablet 00:00: mouth [place] 00 every 6 Medical (six) Branch hours as needed for Pain (scale 1-3) or Pain (scale 4-6). ibuprofen 0 Yes [id number] 600mg Take 1 [facility] 600 mg 6-07 tablet by [facility] tablet 00:00: mouth [place] 00 every 6 Medical (six) Branch hours as needed for Pain (scale 1-3) or Pain (scale 4-6). ibuprofen 20190 Yes [id number] 600mg Take 1 [facility] 600 mg 6-07 tablet by [facility] tablet 00:00: mouth [place] 00 every 6 Medical (six) Branch hours as needed for Pain (scale 1-3) or Pain (scale 4-6). ibuprofen 20190 Yes [id number] 600mg Take 1 [facility] 600 mg 6-07 tablet by [facility] tablet 00:00: mouth [place] 00 every 6 Medical (six) Branch hours as needed for Pain (scale 1-3) or Pain (scale 4-6). ibuprofen 2019-0 Yes [id number] 600mg Take 1 [facility] 600 mg 6-07 tablet by [facility] tablet 00:00: mouth [place] 00 every 6 Medical (six) Branch hours as needed for Pain (scale 1-3) or Pain (scale 4-6). ibuprofen 2019-0 Yes [id number] 600mg Take 1 [facility] 600 mg 6-07 tablet by [facility] tablet 00:00: mouth [place] 00 every 6 Medical (six) Branch hours as needed for Pain (scale 1-3) or Pain (scale 4-6). ibuprofen 0 Yes [id number] 600mg Take 1 [facility] 600 mg 6-07 tablet by [facility] tablet 00:00: mouth [place] 00 every 6 Medical (six) Branch hours as needed for Pain (scale 1-3) or Pain (scale 4-6). ibuprofen Yes [id number] 600mg Take 1 [facility] 600 mg 6-07 tablet by [facility] of tablet 00:00: mouth [place] 00 every 6 Medical (six) Branch hours as needed for Pain (scale 1-3) or Pain (scale 4-6). ibuprofen 0 Yes [id number] 600mg Take 1 [facility] 600 mg 6-07 tablet by [facility] tablet 00:00: mouth [place] 00 every 6 Medical (six) Branch hours as needed for Pain (scale 1-3) or Pain (scale 4-6). ibuprofen 0 Yes [id number] 600mg Take 1 [facility] 600 mg 6-07 tablet by [facility] tablet 00:00: mouth [place] 00 every 6 Medical (six) Branch hours as needed for Pain (scale 1-3) or Pain (scale 4-6). ibuprofen 20190 Yes [id number] 600mg Take 1 [facility] 600 mg 6-07 tablet by [facility] tablet 00:00: mouth [place] 00 every 6 Medical (six) Branch hours as needed for Pain (scale 1-3) or Pain (scale 4-6). ibuprofen 20190 Yes [id number] 600mg Take 1 [facility] 600 mg 6-07 tablet by [facility] tablet 00:00: mouth [place] 00 every 6 Medical (six) Branch hours as needed for Pain (scale 1-3) or Pain (scale 4-6). ibuprofen 2019- Yes [id number] 600mg Take 1 [facility] 600 mg 6-07 tablet by [facility] tablet 00:00: mouth [place] 00 every 6 Medical (six) Branch hours as needed for Pain (scale 1-3) or Pain (scale 4-6). ibuprofen 2019- Yes [id number] 600mg Take 1 [facility] 600 mg 6-07 tablet by [facility] tablet 00:00: mouth [place] 00 every 6 Medical (six) Branch hours as needed for Pain (scale 1-3) or Pain (scale 4-6). medroxyPROG 2018- 2020- No [id number] 150mg [facility] ESTERone 18 -17 [facility] (DEPO-PROVE 05:00: 05:59 [place] [facility]) 00 :00 Medical injection Branch 150 mg medroxyPROG 2018-0 2020- No [id number] 150mg [facility] ESTERone 18 -17 [facility] of (DEPO-PROVE 05:00: 05:59 [place] [facility]) 00 :00 Medical injection [facility] 150 mg medroxyPROG 2018-0 2020- No [id number] 150mg [facility] ESTERone 18 -17 [facility] of (DEPO-PROVE 05:00: 05:59 [place] [facility]) 00 :00 Medical injection [facility] 150 mg medroxyPROG 2018-0 2020- No [id number] 150mg [facility] ESTERone 18 17 [facility] of (DEPO-PROVE 05:00: 05:59 [place] [facility]) 00 :00 Medical injection [facility] 150 mg levETIRAcet 2018-0 Yes 1500mg Take 2 [facility] 750 mg 7-02 tablets by [facility] tablet 00:00: mouth 2 (two) Medical times [facility] daily. levETIRAcet 2018-0 Yes 1500mg Take 2 [facility] 750 mg 7-02 tablets by [facility] tablet 00:00: mouth 2 (two) Medical times [facility] daily. levETIRAcet 2018-0 Yes 1500mg Take 2 [facility] 750 mg 7-02 tablets by [facility] tablet 00:00: mouth 2 (two) Medical times [facility] daily. levETIRAcet 2018-0 Yes 1500mg Take 2 [facility] 750 mg 7-02 tablets by [facility] tablet 00:00: mouth 2 (two) Medical times [facility] daily. levETIRAcet 2018-0 Yes 1500mg Take 2 [facility] 750 mg 7-02 tablets by [facility] tablet 00:00: mouth (two) Medical times [facility] daily. levETIRAcet 2018-0 Yes 1500mg Take 2 [facility] 750 mg 7-02 tablets by [facility] tablet 00:00: mouth (two) Medical times [facility] daily. levETIRAcet 2018-0 Yes 1500mg Take 2 [facility] 750 mg 7-02 tablets by [facility] tablet 00:00: mouth (two) Medical times [facility] daily. levETIRAcet 2018-0 Yes 1500mg Take 2 [facility] 750 mg 7-02 tablets by [facility] tablet 00:00: mouth (two) Medical times [facility] daily. levETIRAcet 2018-0 Yes 1500mg Take 2 [facility] 750 mg 7-02 tablets by [facility] tablet 00:00: mouth (two) Medical times [facility] daily. levETIRAcet 2018-0 Yes 1500mg Take 2 [facility] 750 mg 7-02 tablets by [facility] tablet 00:00: mouth (two) Medical times [facility] daily. levETIRAcet 2018-0 Yes 1500mg Take 2 [facility] 750 mg 7-02 tablets by [facility] tablet 00:00: mouth (two) Medical times [facility] daily. levETIRAcet 2018-0 Yes 1500mg Take 2 [facility] 750 mg 7-02 tablets by [facility] tablet 00:00: mouth (two) Medical times [facility] daily. levETIRAcet 2018-0 Yes 1500mg Take 2 [facility] 750 mg 7-02 tablets by [facility] tablet 00:00: mouth (two) Medical times [facility] daily. levETIRAcet 2018-0 Yes 1500mg Take 2 [facility] 750 mg 7-02 tablets by [facility] tablet 00:00: mouth (two) Medical times [facility] daily. levETIRAcet 2018-0 Yes 1500mg Take 2 [facility] 750 mg 7-02 tablets by [facility] tablet 00:00: mouth (two) Medical times [facility] daily. levETIRAcet 2018-0 Yes 1500mg Take 2 [facility] 750 mg 7-02 tablets by [facility] tablet 00:00: mouth (two) Medical times [facility] daily. levETIRAcet 2018-0 Yes 1500mg Take 2 [facility] 750 mg 7-02 tablets by [facility] tablet 00:00: mouth (two) Medical times [facility] daily. levETIRAcet 2018-0 Yes 1500mg Take 2 [facility] 750 mg 7-02 tablets by [facility] tablet 00:00: mouth (two) Medical times [facility] daily. levETIRAcet 2018-0 Yes 1500mg Take 2 [facility] 750 mg 7-02 tablets by [facility] tablet 00:00: mouth (two) Medical times [facility] daily. levETIRAcet 2018-0 Yes 1500mg Take 2 [facility] 750 mg 7-02 tablets by [facility] tablet 00:00: mouth (two) Medical times [facility] daily. levETIRAcet 2018-0 Yes 1500mg Take 2 [facility] 750 mg 7-02 tablets by [facility] tablet 00:00: mouth (two) Medical times [facility] daily. levETIRAcet 2018-0 Yes 1500mg Take 2 [facility] 750 mg 7-02 tablets by [facility] tablet 00:00: mouth (two) Medical times [facility] daily. levETIRAcet 2018-0 Yes 1500mg Take 2 [facility] 750 mg 7-02 tablets by [facility] tablet 00:00: mouth (two) Medical times [facility] daily. levETIRAcet 2018-0 Yes 1500mg Take 2 [facility] 750 mg 7-02 tablets by [facility] tablet 00:00: mouth (two) Medical times [facility] daily. levETIRAcet 2018-0 Yes 1500mg Take 2 [facility] 750 mg 7-02 tablets by [facility] tablet 00:00: mouth (two) Medical times [facility] daily. levETIRAcet 2018-0 Yes 1500mg Take 2 [facility] 750 mg 7-02 tablets by [facility] tablet 00:00: mouth (two) Medical times [facility] daily. levETIRAcet 2018-0 Yes 1500mg Take 2 [facility] 750 mg 7-02 tablets by [facility] tablet 00:00: mouth (two) Medical times [facility] daily. levETIRAcet 2018-0 Yes 1500mg Take 2 [facility] 750 mg 7-02 tablets by [facility] tablet 00:00: mouth (two) Medical times [facility] daily. levETIRAcet 2018-0 Yes 1500mg Take 2 [facility] 750 mg 7-02 tablets by [facility] tablet 00:00: mouth (two) Medical times [facility] daily. levETIRAcet 2018-0 Yes 1500mg Take 2 [facility] 750 mg 7-02 tablets by [facility] tablet 00:00: mouth (two) Medical times [facility] daily. levETIRAcet 2018-0 Yes 1500mg Take 2 [facility] 750 mg 7-02 tablets by [facility] tablet 00:00: mouth (two) Medical times [facility] daily. levETIRAcet 2018-0 Yes 1500mg Take 2 [facility] 750 mg 7-02 tablets by [facility] tablet 00:00: mouth (two) Medical times [facility] daily. levETIRAcet 2018-0 Yes 1500mg Take 2 [facility] 750 mg 7-02 tablets by [facility] tablet 00:00: mouth (two) Medical times [facility] daily. levETIRAcet 2018-0 Yes 1500mg Take 2 [facility] 750 mg 7-02 tablets by [facility] tablet 00:00: mouth (two) Medical times [facility] daily. levETIRAcet 2018-0 Yes 1500mg Take 2 [facility] 750 mg 7-02 tablets by [facility] tablet 00:00: mouth (two) Medical times [facility] daily. levETIRAcet 2018-0 Yes 1500mg Take 2 [facility] 750 mg 7-02 tablets by [facility] tablet 00:00: mouth (two) Medical times [facility] daily. levETIRAcet 2018-0 Yes 1500mg Take 2 [facility] 750 mg 7-02 tablets by [facility] tablet 00:00: mouth (two) Medical times [facility] daily. levETIRAcet 2018-0 Yes 1500mg Take 2 [facility] 750 mg 7-02 tablets by [facility] tablet 00:00: mouth (two) Medical times [facility] daily. levETIRAcet 2018-0 Yes 1500mg Take 2 [facility] 750 mg 7-02 tablets by [facility] tablet 00:00: mouth (two) Medical times [facility] daily. levETIRAcet 2018-0 Yes 1500mg Take 2 [facility] 750 mg 7-02 tablets by [facility] tablet 00:00: mouth 2 (two) Medical times [facility] daily. levETIRAcet 2018-0 Yes 1500mg Take 2 [facility] 750 mg 7-02 tablets by [facility] tablet 00:00: mouth (two) Medical times [facility] daily. levETIRAcet 2018-0 Yes 1500mg Take 2 [facility] 750 mg 7-02 tablets by [facility] tablet 00:00: mouth (two) Medical times [facility] daily. levETIRAcet 2018-0 Yes 1500mg Take 2 [facility] 750 mg 7-02 tablets by [facility] tablet 00:00: mouth (two) Medical times [facility] daily. levETIRAcet 2018-0 Yes 1500mg Take 2 [facility] 750 mg 7-02 tablets by [facility] tablet 00:00: mouth (two) Medical times [facility] daily. levETIRAcet 2018-0 Yes 1500mg Take 2 [facility] 750 mg 7-02 tablets by [facility] tablet 00:00: mouth (two) Medical times [facility] daily. levETIRAcet 2018-0 Yes 1500mg Take 2 [facility] am 750 mg 7-02 tablets by [facility] tablet 00:00: mouth (two) Medical times [facility] daily. 2016-06 Yes 1{tbl} QD Take 1 [facility]ium-i 00:00: mouth [facility] parmjit-folate 00 daily. [facility] ( PLUS) 27 mg iron- 1 mg Tab 2016-06- No 1{tbl} QD Take [address] [facility] [address] vitamin 2-06 09-04 tablet by [facility]calcium-i 00:00: 00:00 mouth [facility] parmjit-folate 00 :00 daily. [facility] ( PLUS) 27 mg iron- 1 mg Tab levETIRAcet 2016-06 Yes 1000mg Q.5D Take [address] [facility] [address] [facility] (KEPPRA) 2-05 [facility] 1000 MG 00:00: (1,000 mg [facility] tablet 00 total) by [facility] mouth 2 (two) times daily. levETIRAcet 2016-06 1000mg Q.5D Take [address] [facility] (KEPPRA) 2 09-04 tablet [facility] 1000 MG 00:00: 00:00 (1,000 mg [facility] tablet 00 :00 total) by [facility] mouth 2 (two) times daily. Immunizations Ordered Filled Date Status Comments Source Immunization Name Immunization Name Tdap 2020-05-02 Completed [facility] 00:00:00 [facility] Rho (d) Immune 2017-12-13 Completed [facility] 00:00[facility]00 [facility] Rho (d) Immune 2017-12-13 Completed [facility] 00:00:00 [facility] Rho (d) Immune 2017-12-13 Completed [facility] 00:00:00 [facility] Rho (d) Immune 2017-12-13 Completed [facility] 00:00:00 [facility] Rho (d) Immune 2017-12-13 Completed [facility] 00:00:00 [facility] Rho (d) Immune 2017-12-13 Completed [facility] 00:00:00 [facility] Rho (d) Immune 2017-12-13 Completed [facility] 00:00:00 [facility] Rho (d) Immune 2017-12-13 Completed [facility] 00:00:00 [facility] Rho (d) Immune 2017-12-13 Completed [facility] 00:00:00 [facility] Rho (d) Immune 2017-12-13 Completed [facility] 00:00:00 [facility] Rho (d) Immune 2017-12-13 Completed [facility] 00:00:00 [facility] Rho (d) Immune 2017-12-13 Completed [facility] 00:00:00 [facility] Rho (d) Immune 2017-12-13 Completed [facility] 00:00:00 [facility] Rho (d) Immune 2017-12-13 Completed [facility] 00:00:00 [facility] Rho (d) Immune 2017-12-13 Completed [facility] 00:00:00 [facility] Rho (d) Immune 2017-12-13 Completed [facility] 00:00:00 [facility] Rho (d) Immune 2017-12-13 Completed [facility] 00:00:00 [facility] Rho (d) Immune 2017-12-13 Completed [facility] 00:00:00 [facility] Rho (d) Immune 2017-12-13 Completed [facility] 00:00:00 [facility] Rho (d) Immune 2017-12-13 Completed [facility] 00:00:00 [facility] Rho (d) Immune 2017-12-13 Completed [facility] 00:00:00 [facility] Rho (d) Immune 2017-12-13 Completed [facility] 00:00:00 [facility] Rho (d) Immune 2017-12-13 Completed [facility] 00:00:00 [facility] Rho (d) Immune 2017-12-13 Completed [facility] 00:00:00 [facility] Rho (d) Immune 2017-12-13 Completed [facility] 00:00:00 [facility] Rho (d) Immune 2017-12-13 Completed [facility] 00:00:00 [facility] Rho (d) Immune 2017-12-13 Completed [facility] 00:00:00 [facility] Rho (d) Immune 2017-12-13 Completed [facility] 00:00:00 [facility] Rho (d) Immune 2017-12-13 Completed [facility] 00:00:00 [facility] Rho (d) Immune 2017-12-13 Completed [facility] 00:00:00 [facility] Rho (d) Immune 2017-12-13 Completed [facility] 00:00:00 [facility] Rho (d) Immune 2017-12-13 Completed [facility] 00:00:00 [facility] Rho (d) Immune 2017-12-13 Completed [facility] 00:00:00 [facility] Rho (d) Immune 2017-12-13 Completed [facility] 00:00:00 [facility] Rho (d) Immune 2017-12-13 Completed [facility] 00:00:00 [facility] Rho (d) Immune 2017-12-13 Completed [facility] 00:00:00 [facility] Rho (d) Immune 2017-12-13 Completed [facility] 00:00:00 [facility] Rho (d) Immune 2017-12-13 Completed [facility] 00:00:00 [facility] Rho (d) Immune 2017-12-13 Completed [facility] 00:00:00 [facility] Rho (d) Immune 2017-12-13 Completed [facility] 00:00:00 [facility] Rho (d) Immune 2017-12-13 Completed [facility] 00:00:00 [facility] Rho (d) Immune 2017-12-13 Completed [facility] 00:00:00 [facility] Rho (d) Immune 2017-12-13 Completed [facility] 00:00:00 [facility] Rho (d) Immune 2017-12-13 Completed [facility] 00:00:00 [facility] Rho (d) Immune 2017-12-13 Completed [facility] 00:00:00 [facility] Rho (d) Immune 2017-12-13 Completed [facility] 00:00:00 [facility] Tdap 2017-10-22 Completed University of 00:00:00 [facility] Tdap 2017-10-22 Completed University of 00:00:00 [facility] Tdap 2017-10-22 Completed University of 00:00:00 [facility] Tdap 2017-10-22 Completed University of 00:00:00 [facility] Tdap 2017-10-22 Completed University of 00:00:00 [facility] Tdap 2017-10-22 Completed [facility] of 00:00:00 [facility] Tdap 2017-10-22 Completed University of 00:00:00 [facility] Tdap 2017-10-22 Completed University of 00:00:00 [facility] Tdap 2017-10-22 Completed [facility] of 00:00:00 [facility] Tdap 2017-10-22 Completed University of 00:00:00 [facility] Tdap 2017-10-22 Completed [facility] of 00:00:00 [facility] Tdap 2017-10-22 Completed University of 00:00:00 [facility] Tdap 2017-10-22 Completed University of 00:00:00 [facility] TDAP 2017-10-22 Completed [facility] of 00:00:00 [facility] TDAP 2017-10-22 Completed [facility] of 00:00:00 [facility] TDAP 2017-10-22 Completed [facility] of 00:00:00 [facility] TDAP 2017-10-22 Completed University of 00:00:00 [facility] TDAP 2017-10-22 Completed University of 00:00:00 [facility] TDAP 2017-10-22 Completed University of 00:00:00 [facility] TDAP 2017-10-22 Completed [facility] 00:00:00 [facility] TDAP 2017-10-22 Completed [facility] of 00:00:00 [facility] TDAP 2017-10-22 Completed [facility] of 00:00:00 [facility] TDAP 2017-10-22 Completed [facility] of 00:00:00 [facility] TDAP 2017-10-22 Completed University of 00:00:00 [facility] TDAP 2017-10-22 Completed University of 00:00:00 [facility] TDAP 2017-10-22 Completed [facility] of 00:00:00 [facility] Tdap 2017-10-22 Completed [facility] of 00:00:00 [facility] TDAP 2017-10-22 Completed University of 00:00:00 [facility] TDAP 2017-10-22 Completed University of 00:00:00 [facility] TDAP 2017-10-22 Completed University of 00:00:00 [facility] TDAP 2017-10-22 Completed University of 00:00:00 [facility] TDAP 2017-10-22 Completed University of 00:00:00 [facility] TDAP 2017-10-22 Completed University of 00:00:00 [facility] TDAP 2017-10-22 Completed University of 00:00:00 [facility] TDAP 2017-10-22 Completed University of 00:00:00 [facility] TDAP 2017-10-22 Completed University of 00:00:00 [facility] TDAP 2017-10-22 Completed University of 00:00:00 [facility] TDAP 2017-10-22 Completed University of 00:00:00 [facility] TDAP 2017-10-22 Completed University of 00:00:00 [facility] Tdap 2017-10-22 Completed University of 00:00:00 [facility] TDAP 2017-10-22 Completed University of 00:00:00 [facility] TDAP 2017-10-22 Completed University of 00:00:00 [facility] TDAP 2017-10-22 Completed University of 00:00:00 [facility] TDAP 2017-10-22 Completed University of 00:00:00 [facility] TDAP 2017-10-22 Completed University of 00:00:00 [facility] TDAP 2017-10-22 Completed [facility] of 00:00:00 [facility] Influenza Virus 2017-06-22 Completed [facility] y [facility] 3+ 00:00:00 [facility] Influenza Virus 2017-06-22 Completed [facility] IM 3+ 00:00:00 [facility] Influenza Virus 2017-06-22 Completed [facility] IM 3+ 00:00:00 [facility] Influenza Virus 2017-06-22 Completed [facility] IM 3+ 00:00:00 [facility] Influenza Virus 2017-06-22 Completed [facility] 3+ 00:00:00 [facility] Influenza Virus 2017-06-22 Completed [facility] y [facility] IM 3+ 00:00:00 [facility] Influenza Virus 2017-06-22 Completed [facility] y [facility] IM 3+ 00:00:00 [facility] Influenza Virus 2017-06-22 Completed [facility] 3+ 00:00:00 [facility] Influenza Virus 2017-06-22 Completed [facility] IM 3+ 00:00:00 [facility] Influenza Virus 2017-06-22 Completed [facility] 3+ 00:00:00 [facility] Influenza Virus 2017-06-22 Completed [facility] IM 3+ 00:00:00 [facility] Influenza Virus 2017-06-22 Completed [facility] 3+ 00:00:00 [facility] Influenza Virus 2017-06-22 Completed [facility] 3+ 00:00:00 [facility] Influenza Virus 2017-06-22 Completed [facility] 3+ 00:00:00 [facility] Influenza Virus 2017-06-22 Completed [facility] 3+ 00:00:00 [facility] Influenza Virus 2017-06-22 Completed [facility] IM 3+ 00:00:00 [facility] Influenza Virus 2017-06-22 Completed [facility] 3+ 00:00:00 [facility] Influenza Virus 2017-06-22 Completed [facility] 3+ 00:00:00 [facility] Influenza Virus 2017-06-22 Completed [facility] IM 3+ 00:00:00 [facility] Influenza Virus 2017-06-22 Completed [facility] 3+ 00:00:00 [facility] Influenza Virus 2017-06-22 Completed [facility] 3+ 00:00:00 [facility] Influenza Virus 2017-06-22 Completed [facility] 3+ 00:00:00 [facility] Influenza Virus 2017-06-22 Completed [facility] 3+ 00:00:00 [facility] Influenza Virus 2017-06-22 Completed [facility] IM 3+ 00:00:00 [facility] Influenza Virus 2017-06-22 Completed [facility] 3+ 00:00:00 [facility] Influenza Virus 2017-06-22 Completed [facility] 3+ 00:00:00 [facility] Influenza Virus 2017-06-22 Completed [facility] 3+ 00:00:00 [facility] Influenza Virus 2017-06-22 Completed [facility] 3+ 00:00:00 [facility] Influenza Virus 2017-06-22 Completed [facility] 3+ 00:00:00 [facility] Influenza Virus 2017-06-22 Completed [facility] 3+ 00:00:00 [facility] Influenza Virus 2017-06-22 Completed [facility] 3+ 00:00:00 [facility] Influenza Virus 2017-06-22 Completed [facility] 3+ 00:00:00 [facility] Influenza Virus 2017-06-22 Completed [facility] 3+ 00:00:00 [facility] Influenza Virus 2017-06-22 Completed [facility] 3+ 00:00:00 [facility] Influenza Virus 2017-06-22 Completed [facility] 3+ 00:00:00 [facility] Influenza Virus 2017-06-22 Completed [facility] 3+ 00:00:00 [facility] Influenza Virus 2017-06-22 Completed [facility] 3+ 00:00:00 [facility] Influenza Virus 2017-06-22 Completed [facility] 3+ 00:00:00 [facility] Influenza Virus 2017-06-22 Completed [facility] 3+ 00:00:00 [facility] Influenza Virus 2017-06-22 Completed [facility] 3+ 00:00:00 [facility] Influenza Virus 2017-06-22 Completed [facility] 3+ 00:00:00 [facility] Influenza Virus 2017-06-22 Completed [facility] 3+ 00:00:00 [facility] Influenza Virus 2017-06-22 Completed [facility] 3+ 00:00:00 [facility] Influenza Virus 2017-06-22 Completed [facility] 3+ 00:00:00 [facility] Influenza Virus 2017-06-22 Completed [facility] 3+ 00:00:00 [facility] Influenza Virus 2017-06-22 Completed [facility] 3+ 00:00:00 [facility] Rho (d) Immune 2009-12-21 Completed [facility] 00:00:00 [facility] Rho (d) Immune 2009-12-21 Completed [facility] 00:00:00 [facility] Rho (d) Immune 2009-12-21 Completed [facility] 00:00:00 [facility] Rho (d) Immune 2009-12-21 Completed [facility] 00:00:00 [facility] Rho (d) Immune 2009-12-21 Completed [facility] 00:00:00 [facility] Rho (d) Immune 2009-12-21 Completed [facility] 00:00:00 [facility] Rho (d) Immune 2009-12-21 Completed [facility] 00:00:00 [facility] Rho (d) Immune 2009-12-21 Completed [facility] 00:00:00 [facility] Rho (d) Immune 2009-12-21 Completed [facility] 00:00:00 [facility] Rho (d) Immune 2009-12-21 Completed [facility] 00:00:00 [facility] Rho (d) Immune 2009-12-21 Completed [facility] 00:00:00 [facility] Rho (d) Immune 2009-12-21 Completed [facility] 00:00:00 [facility] Rho (d) Immune 2009-12-21 Completed [facility] 00:00:00 [facility] Rho (d) Immune 2009-12-21 Completed [facility] 00:00:00 [facility] Rho (d) Immune 2009-12-21 Completed [facility] 00:00:00 [facility] Rho (d) Immune 2009-12-21 Completed [facility] 00:00:00 [facility] Rho (d) Immune 2009-12-21 Completed [facility] 00:00:00 [facility] Rho (d) Immune 2009-12-21 Completed [facility] 00:00:00 [facility] Rho (d) Immune 2009-12-21 Completed [facility] 00:00:00 [facility] Rho (d) Immune 2009-12-21 Completed [facility] 00:00:00 [facility] Rho (d) Immune 2009-12-21 Completed [facility] 00:00:00 [facility] Rho (d) Immune 2009-12-21 Completed [facility] 00:00:00 [facility] Rho (d) Immune 2009-12-21 Completed [facility] 00:00:00 [facility] Rho (d) Immune 2009-12-21 Completed [facility] 00:00:00 [facility] Rho (d) Immune 2009-12-21 Completed [facility] 00:00:00 [facility] Rho (d) Immune 2009-12-21 Completed [facility] 00:00:00 [facility] Rho (d) Immune 2009-12-21 Completed [facility] 00:00:00 [facility] Rho (d) Immune 2009-12-21 Completed [facility] 00:00:00 [facility] Rho (d) Immune 2009-12-21 Completed [facility] 00:00:00 [facility] Rho (d) Immune 2009-12-21 Completed [facility] 00:00:00 [facility] Rho (d) Immune 2009-12-21 Completed [facility] 00:00:00 [facility] Rho (d) Immune 2009-12-21 Completed [facility] 00:00:00 [facility] Rho (d) Immune 2009-12-21 Completed [facility] 00:00:00 [facility] Rho (d) Immune 2009-12-21 Completed [facility] 00:00:00 [facility] Rho (d) Immune 2009-12-21 Completed [facility] 00:00:00 [facility] Rho (d) Immune 2009-12-21 Completed [facility] 00:00:00 [facility] Rho (d) Immune 2009-12-21 Completed [facility] 00:00:00 [facility] Rho (d) Immune 2009-12-21 Completed [facility] 00:00:00 [facility] Rho (d) Immune 2009-12-21 Completed [facility] 00:00:00 [facility] Rho (d) Immune 2009-12-21 Completed [facility] 00:00:00 [facility] Rho (d) Immune 2009-12-21 Completed [facility] 00:00:00 [facility] Rho (d) Immune 2009-12-21 Completed [facility] 00:00:00 [facility] Rho (d) Immune 2009-12-21 Completed [facility] 00:00:00 [facility] Rho (d) Immune 2009-12-21 Completed [facility] 00:00:00 [facility] Rho (d) Immune 2009-12-21 Completed [facility] 00:00:00 [facility] Rho (d) Immune 2009-12-21 Completed [facility] 00:00:00 [facility] Tdap Unknown Completed [facility] Tdap Unknown Completed [facility] Vital Signs Vital Name Observation Time Observation Value Comments Source HEIGHT 2021-02-12 01:00:00 172.7 cm WEIGHT 2021-02-12 00:00:00 66.3 kg HEIGHT 2021-02-12 01:00:00 172.7 cm WEIGHT 2021-02-12 00:00:00 66.3 kg Systolic blood 2020-07-26 15:47:00 118 mm[Hg] Univer sity of pressure [facility] Diastolic blood 2020-07-26 15:47:00 80 mm[Hg] Unive rsity of [facility] Heart rate 2020-07-26 15:47:00 77 /min [facility] Body temperature 2020-07-26 15:47:00 37.28 [facility] Respiratory rate 2020-07-26 15:47:00 16 /min [facility] Body weight 2020-07-26 15:47:00 73.483 kg [facility] BMI 2020-07-26 15:47:00 29.62 kg/m2 [facility] Oxygen saturation in 2020-07-26 15:47:00 98 /min [facility] Arterial blood by [facility] Systolic blood 2020-07-26 15:47:00 118 mm[Hg] Univer sity of pressure [facility] Diastolic blood 2020-07-26 15:47:00 80 mm[Hg] Unive rsity of pressure [facility] Heart rate 2020-07-26 15:47:00 77 /min [facility] Body temperature 2020-07-26 15:47:00 37.28 [facility] Respiratory rate 2020-07-26 15:47:00 16 /min [facility] Body weight 2020-07-26 15:47:00 73.483 kg [facility] BMI 2020-07-26 15:47:00 29.62 kg/m2 [facility] Oxygen saturation in 2020-07-26 15:47:00 98 /min [facility]terial blood by [facility] Systolic blood 2020-06-13 18:17:00 131 mm[Hg] Univer sity of pressure [facility] Diastolic blood 2020-06-13 18:17:00 87 mm[Hg] Unive rsity of pressure [facility] Heart rate 2020-06-13 18:17:00 95 /min [facility] Body temperature 2020-06-13 18:17:00 36.83 [facility] Respiratory rate 2020-06-13 18:17:00 14 /min [facility] Body weight 2020-06-13 18:17:00 76.204 kg [facility] BMI 2020-06-13 18:17:00 30.72 kg/m2 [facility] Oxygen saturation in 2020-06-13 18:17:00 99 /min [facility] Arterial blood by [place] [facility] Systolic blood 2020-05-30 18:23:00 124 mm[Hg] Univer sity of pressure [facility] Diastolic blood 2020-05-30 18:23:00 82 mm[Hg] Unive rsity of pressure [facility] Heart rate 2020-05-30 18:23:00 84 /min [facility] Body temperature 2020-05-30 18:23:00 36.72 [facility] Respiratory rate 2020-05-30 18:23:00 16 /min [facility] Body weight 2020-05-30 18:23:00 76.613 kg [facility] BMI 2020-05-30 18:23:00 30.88 kg/m2 [facility] Oxygen saturation in 2020-05-30 18:23:00 97 /min [facility] of Arterial blood by [facility] P[facility] o[facility] Systolic blood 2020-05-16 17:40:00 111 mm[Hg] Univer sity of pressure [facility] Diastolic blood 2020-05-16 17:40:00 56 mm[Hg] Unive rsity of pressure [facility] Heart rate 2020-05-16 17:40:00 84 /min [facility] Body temperature 2020-05-16 17:40:00 37.06 Mel[facility] Respiratory rate 2020-05-16 17:40:00 16 /min [facility] Body weight 2020-05-16 17:40:00 78.019 kg [facility] BMI 2020-05-16 17:40:00 31.45 kg/m2 [facility] Oxygen saturation in 2020-05-16 17:40:00 100 /min [facility] of Arterial blood by [facility] Systolic blood 2020-05-12 18:34:00 116 mm[Hg] Univer sity of pressure [facility] Diastolic blood 2020-05-12 18:34:00 84 mm[Hg] Unive rsity of pressure [facility] Heart rate 2020-05-12 18:34:00 100 /min [facility] Body temperature 2020-05-12 18:34:00 37 Melody [facility] Respiratory rate 2020-05-12 18:34:00 17 /min Univ [facility] Oxygen saturation in 2020-05-12 18:34:00 100 /min [facility] of Arterial blood by [facility] Pulse oximetry Branch Body height 2020-05-04 02:00:00 157.5 cm [facility] Body weight 2020-05-04 02:00:00 78.019 kg [facility] BMI 2020-05-04 02:00:00 31.45 kg/m2 [facility] Systolic blood 2020-04-10 19:25:00 116 mm[Hg] [facility] Diastolic blood 2020-04-10 19:25:00 76 mm[Hg] [facility] Heart rate 2020-04-10 19:25:00 72 /min [facility] Body temperature 2020-04-10 19:25:00 36.17 Melody [facility] Respiratory rate 2020-04-10 19:25:00 16 /min [facility] Body height 2020-04-10 19:25:00 160 cm [facility] Body weight 2020-04-10 19:25:00 77.111 kg [facility] BMI 2020-04-10 19:25:00 30.11 kg/m2 [facility] Systolic blood 2020-01-17 05:00:00 119 mm[Hg] [facility] Diastolic blood 2020-01-17 05:00:00 72 mm[Hg] [facility] Heart rate 2020-01-17 05:00:00 71 /min [facility] Respiratory rate 2020-01-17 05:00:00 16 /min [facility] Oxygen saturation in 2020-01-17 05:00:00 99 /min [facility] Arterial blood by [place] [employer] Pulse oximetry Branch Body temperature 2020-01-17 03:14:00 36.67 Melody [facility] Body height 2020-01-17 03:14:00 160 cm [facility] Body weight 2020-01-17 03:14:00 68.04 kg [facility] BMI 2020-01-17 03:14:00 26.57 kg/m2 [facility] Systolic blood 2019-11-29 22:55:00 117 mm[Hg] [facility] Diastolic blood 2019-11-29 22:55:00 77 mm[Hg] [facility] Heart rate 2019-11-29 22:55:00 83 /min [facility] Respiratory rate 2019-11-29 22:55:00 16 /min [facility] Oxygen saturation in 2019-11-29 22:55:00 100 /min [facility] Arterial blood by [employer] [facility] Pulse oximetry Branch Body temperature 2019-11-29 21:55:10 37 Melody [facility] Body height 2019-11-29 18:56:00 160 cm [facility] Body weight 2019-11-29 18:56:00 64.864 kg [facility] BMI 2019-11-29 18:56:00 25.33 kg/m2 [facility] Height/Length 2021-07-02 10:53:21 160.02 cm Measured Weight Dosing 2021-07-02 10:53:21 65.77 kg Height/Length 2021-07-02 10:31:04 160.02 cm Measured Weight Dosing 2021-07-02 10:31:04 65.77 kg Height/Length 2021-07-02 10:26:50 160.02 cm Measured Weight Dosing 2021-07-02 10:26:50 65.77 kg Height/Length 2021-07-02 10:24:56 160.02 cm Measured Weight Dosing 2021-07-02 10:24:56 65.77 kg Height/Length 2021-07-02 10:24:55 160.02 cm Measured Weight Dosing 2021-07-02 10:24:55 65.77 kg Height/Length 2021-07-02 10:22:24 160.02 cm Measured Weight Dosing 2021-07-02 10:22:24 65.77 kg Height/Length 2021-07-02 10:22:14 160.02 cm Measured Weight Dosing 2021-07-02 10:22:14 65.77 kg Height/Length 2021-07-02 10:21:38 160.02 cm Measured Weight Dosing 2021-07-02 10:21:38 65.77 kg Height/Length 2021-07-02 10:21:15 160.02 cm Measured Weight Dosing 2021-07-02 10:21:15 65.77 kg Height/Length 2021-07-02 10:20:55 160.02 cm Measured Weight Dosing 2021-07-02 10:20:55 65.77 kg Height/Length 2021-07-02 10:20:49 160.02 cm Measured Weight Dosing 2021-07-02 10:20:49 65.77 kg Height/Length 2021-07-02 10:20:45 160.02 cm Measured Weight Dosing 2021-07-02 10:20:45 65.77 kg Height/Length 2021-07-02 10:20:44 160.02 cm Measured Weight Dosing 2021-07-02 10:20:44 65.77 kg Height/Length 2021-07-02 10:20:41 160 cm Measured Height/Length 2021-07-02 10:20:40 160 cm Measured Height/Length 2019-10-24 23:24:17 Measured Height/Length 2019-10-24 19:35:14 Measured Systolic blood 2019-08-10 20:34:00 126 mm[Hg] [facility] Diastolic blood 2019-08-10 20:34:00 81 mm[Hg] [facility] Heart rate 2019-08-10 20:34:00 97 /min [facility] Body temperature 2019-08-10 20:34:00 36.89 Melody [facility] Respiratory rate 2019-08-10 20:34:00 18 /min [facility] Body height 2019-08-10 20:34:00 160 cm [facility] [place] [facility] [place] Body weight 2019-08-10 20:34:00 66.225 kg [facility] BMI 2019-08-10 20:34:00 25.86 kg/m2 [facility] Systolic blood 2019-02-04 21:00:00 112 mm[Hg] [facility] Diastolic blood 2019-02-04 21:00:00 65 mm[Hg] [facility] Heart rate 2019-02-04 21:00:00 90 /min [facility] Body temperature 2019-02-04 21:00:00 36.33 [facility] Respiratory rate 2019-02-04 21:00:00 18 /min [facility] Oxygen saturation in 2019-02-04 21:00:00 96 /min [facility] Arterial blood by [facility] Pulse oximetry Branch Body height 2019-02-04 02:53:00 160 cm [facility] Body weight 2019-02-03 20:50:00 70.421 kg [facility] BMI 2019-02-03 20:50:00 27.50 kg/m2 [facility] Systolic blood 2021-02-19 08:46:00 113 mm[Hg] [facility] Diastolic blood 2021-02-19 08:46:00 71 mm[Hg] [facility] Heart rate 2021-02-19 08:46:00 80 /min [facility] Body temperature 2021-02-19 08:46:00 36.33 Melody [facility] Respiratory rate 2021-02-19 08:46:00 18 /min [facility] Oxygen saturation in 2021-02-19 08:46:00 100 /min [facility] Arterial blood by Medical Ce nter Pulse oximetry Body height 2021-02-12 01:00:00 172.7 cm [facility] Body weight 2021-02-12 00:00:00 66.3 kg [facility] BMI 2021-02-12 00:00:00 22.23 kg/m2 [facility] Systolic blood 2020-11-29 14:45:00 136 mm[Hg] [facility] pressure Diastolic blood 2020-11-29 14:45:00 88 mm[Hg] [facility] pressure Heart rate 2020-11-29 14:45:00 99 /min [facility] Body temperature 2020-11-29 14:45:00 36.67 Melody [facility] Body height 2020-11-29 14:45:00 160 cm [facility] Body weight 2020-11-29 14:45:00 70.171 kg [facility] BMI 2020-11-29 14:45:00 27.40 kg/m2 [facility] Respiratory rate 2020-11-09 16:14:22 18 /min [facility] Oxygen saturation in 2020-11-09 16:14:22 96 /min [facility] Arterial blood by Pulse oximetry Procedures Procedure Date / Time Performing Clinician Source Performed BASIC METABOLIC PANEL (7) 2021-02-[address] [facility] 04:55:[address] [facility] CBC W/PLT COUNT & AUTO 2021-02-19 Guzman [facility] kes DIFFERENTIAL 04:55:00 Medical Center HEPATIC FUNCTION PANEL 2021-02-19 Guzman, Fl[facility] 04:[facility]:00 [facility] MAGNESIUM 2021-02-19 Guzman, Flaca [facility] 04:55:00 Medical Center PHOSPHORUS 2021-02-19 Guzman, Flaca [facility] 04:55:00 Medical Center PHENYTOIN LEVEL, TOTAL 2021-02-19 Shieh, Jerson [facility] 04:55:00 [facility] CBC W/PLT COUNT & AUTO 2021-02-19 Guzman, Flaca [facility] DIFFERENTIAL 04:55:00 Medical Center PROTHROMBIN TIME/INR 2021-02-19 [facility]zman[facility] 04:[facility]00 [facility] BASIC METABOLIC PANEL (7) 2021-02-18 Guzman, Flaca [facility] 05:15:00 Medical Center CBC W/PLT COUNT & AUTO 2021-02-18 Guzman, Flaca [facility] DIFFERENTIAL 05:15:00 [facility] Center HEPATIC FUNCTION PANEL 2021-02-18 Guzman, Flaca [facility] 05:15:00 Medical Center MAGNESIUM 2021-02-18 Guzman, Flaca [facility] 05:15:00 Medical Center PHOSPHORUS 2021-02-18 Guzman, Flaca [facility] 05:15:00 Medical Center PROTHROMBIN TIME/INR 2021-02-18 [facility]zman, [facility] 05:15[facility] Center PHENYTOIN LEVEL, TOTAL 2021-02-18 Shieh, Jerson [facility] 05:15:00 [facility] CBC W/PLT COUNT & AUTO 2021-02-18 Guzman, Flaca [facility] DIFFERENTIAL 05:15:00 Medical Center BASIC METABOLIC PANEL (7) 2021-02-17 Guzman, Flaca [facility] 04:42:00 Medical Center CBC W/PLT COUNT & AUTO 2021-02-17 Guzman, Flaca [facility] DIFFERENTIAL 04:42:00 [facility] Center HEPATIC FUNCTION PANEL 2021-02-17 Guzman, Flaca [facility] 04:42:00 Medical Center MAGNESIUM 2021-02-17 Guzman, Flaca [facility] 04:42:00 [facility] Center PHOSPHORUS 2021-02-17 Guzman, Flaca [facility] 04:42:00 Medical Center PROTHROMBIN TIME/INR 2021-02-17 Guzman, [facility] 04:42:00 [facility] Center PHENYTOIN LEVEL, TOTAL 2021-02-[address] [facility] 04:42:00 [facility] CBC W/PLT COUNT & AUTO 2021-02-17 Guzman, Flaca [facility] DIFFERENTIAL 04:42:[address] [facility] BASIC METABOLIC PANEL (7) 2021-02-16 Guzman, Flaca [facility] 05:01:00 [facility] Center CBC W/PLT COUNT & AUTO 2021-02-16 Guzman, Flaca [facility] DIFFERENTIAL 05:01:[address] [facility] HEPATIC FUNCTION PANEL 2021-02-16 Guzman, Flaca [facility] 05:01:[address] [facility] MAGNESIUM 2021-02-16 Guzman, Flaca [facility] 05:01:[address] [facility] PHOSPHORUS 2021-02-16 Guzman, Flaca [facility] 05:01:00 [facility] Center PROTHROMBIN TIME/INR 2021-02-16 [facility]zman, [facility] 05:01:00 [facility] Center PHENYTOIN LEVEL, TOTAL 2021-02-16 Shimatteo, Jerson [facility] 05:01:00 [facility] CBC W/PLT COUNT & AUTO 2021-02-16 Guzman, Flaca [facility] DIFFERENTIAL 05:01:00 [facility] Center CBC W/PLT COUNT & AUTO 2021-02-15 Carolyne, Michelet [facility] DIFFERENTIAL 21:32:00 [facility] COMPREHENSIVE METABOLIC PANEL 2021-02-15 Carolyne, [facility]let [facility] 21:32:00 [facility] CBC W/PLT COUNT & AUTO 2021-02-15 Carolyne, Michelet [facility] DIFFERENTIAL 21:32:00 [facility] AMMONIA 2021-02-15 Guzman, Flaca [facility] 05:54:[address] [facility] BASIC METABOLIC PANEL (7) 2021-02-15 Guzman, Flaca [facility] 05:14:00 Medical Center CBC W/PLT COUNT & AUTO 2021-02-15 Guzman, Flaca [facility] DIFFERENTIAL 05:14:00 Medical Center HEPATIC FUNCTION PANEL 2021-02-15 Guzman, Flaca [facility] 05:14:00 Medical Center MAGNESIUM 2021-02-15 Guzman, Flaca [facility] 05:14:00 Medical Center PHOSPHORUS 2021-02-15 Guzman, Flaca [facility] 05:14:00 Medical Center PROTHROMBIN TIME/INR 2021-02-15 Guzman, [facility] 05:14:00 Medical Center PHENYTOIN LEVEL, TOTAL 2021-02-15 Shieh, Jerson [facility] 05:14:00 [facility] CBC W/PLT COUNT & AUTO 2021-02-15 Guzman, Flaca [facility] DIFFERENTIAL 05:14:00 [facility] Center LEVETIRACETAM LEVEL 2021-02-[address] [facility] 17:36:00 [facility] Center AMMONIA 2021-02-[address] [facility] 03:57:00 [facility] Center BLOOD GAS, VENOUS 2021-02-14 Shieh, Jerson [facility] 03:39:00 [facility] LACTIC ACID, VENOUS 2021-02-14 Shieh, Jerson [facility] 03:38:00 [facility] BASIC METABOLIC PANEL (7) 2021-02-14 Guzman, Flaca [facility] 03:37:00 Medical Center CBC W/PLT COUNT & AUTO 2021-02-14 Guzman, Flaca [facility] DIFFERENTIAL 03:37:00 Medical Center HEPATIC FUNCTION PANEL 2021-02-14 Guzman, Flaca [facility] 03:37:00 Medical Center MAGNESIUM 2021-02-14 Guzman, Flaca [facility] 03:37:00 Medical Center PHOSPHORUS 2021-02-14 Guzman, Flaca [facility] 03:37:00 Medical Center PROTHROMBIN TIME/INR 2021-02-14 Guzman, [facility] 03:37:00 Medical Center ACETAMINOPHEN LEVEL 2021-02-14 Guzman, Flaca [facility] 03:37:00 Medical Center CBC W/PLT COUNT & AUTO 2021-02-14 Guzman, Flaca [facility] DIFFERENTIAL 03:37:00 [facility] Center SARS-COV2/RT-PCR ([facility] & REF 2021-02-13 Futkimberlyn Nerville [facility]) 22:03:00 [facility] PHENYTOIN LEVEL, TOTAL 2021-02-13 Husam, Jerson [facility] 22:03:00 [facility] CTA BRAIN 2021-02-[address] [facility] 20:25:00 [facility] XR CHEST 1 VIEW PORTABLE / 2021-02-13 Jerson Weiner [facility] B[facility] 19:14:00 [facility] CT BRAIN WITHOUT IV CONTRAST 2021-02-13 Barrington Juniorille [facility] 18:58:00 [facility] CBC W/PLT COUNT & AUTO 2021-02-[address] [facility] DIFFERENTIAL 18:24:00 [facility] COMPREHENSIVE METABOLIC PANEL 2021-02-13 Futnatalien, Nerville [facility] 18:24:00 [facility] Center PROTHROMBIN TIME/INR 2021-02-13 Futnatalien, Nerville [facility] 18:24:00 [facility] AMMONIA 2021-02-13 Jessn, Nerville [facility] 18:24:00 [facility] BLOOD GAS, VENOUS 2021-02-13 Futnatalien, Nerville [facility] 18:24:00 P[facility] Center LACTIC ACID, VENOUS 2021-02-[address] [facility] 18:24:00 [facility] CBC W/PLT COUNT & AUTO 2021-02-13 Futnatalien, Nerville [facility] DIFFERENTIAL 18:24:00 [facility] HEMOGLOBIN AND HEMATOCRIT 2021-02-13 Guzman, Flaca [facility] 13:32:00 Medical Center ACETAMINOPHEN LEVEL 2021-02-13 Guzman, Flaca [facility] 10:16:00 [facility] Center HEPATIC FUNCTION PANEL 2021-02-13 Guzman, Flaca [facility] 10:16:00 Medical Center PROTHROMBIN TIME/INR 2021-02-13 Guzman, [facility] 10:16:00 Medical Center PHENYTOIN LEVEL, TOTAL 2021-02-13 Onsamira, Lluvia [facility] 03:44:00 [facility] CBC W/PLT COUNT & AUTO 2021-02-13 Guzman, Flaca [facility] DIFFERENTIAL 03:44:00 [facility] BASIC METABOLIC PANEL (7) 2021-02-13 Guzman, Flaca [facility] 03:44:00 Medical Center MAGNESIUM 2021-02-13 Guzman, Flaca [facility] 03:44:00 Medical Center PHOSPHORUS 2021-02-13 Guzman, Flaca [facility] 03:44:00 [facility] Center HEPATIC FUNCTION PANEL 2021-02-13 Guzman, Flaca [facility] 03:44:00 [facility] Center PROTHROMBIN TIME/INR 2021-02-13 Guzman, Flaca [facility] 03:44:00 Medical Center CBC W/PLT COUNT & AUTO 2021-02-13 Guzman, Flaca [facility] DIFFERENTIAL 03:44:00 [facility] Center HEPATIC FUNCTION PANEL 2021-02-12 Guzman, Flaca [facility] 16:08:00 Medical Center VALPROIC ACID LEVEL, TOTAL 2021-02-12 Guzman, [facility] 16:08:00 Medical Center LITHIUM LEVEL 2021-02-12 Guzman, Flaca [facility] 16:08:00 Medical Center ACETAMINOPHEN LEVEL 2021-02-12 Guzman, Flaca [facility] 16:07:00 Medical Center PROTHROMBIN TIME/INR 2021-02-12 Guzman, Flaca [facility] 16:07:00 Medical Center PHENYTOIN LEVEL, TOTAL 2021-02-12 Guzman, Flaca [facility] 16:07:00 Medical Center ACETAMINOPHEN LEVEL 2021-02-12 Onochie, Lluvia [facility] 06:47:00 [facility] COMPREHENSIVE METABOLIC PANEL 2021-02-12 Onochie, Lluvia [facility] 04:06:00 [facility] PROTHROMBIN TIME/INR 2021-02-12 Onochie, [facility]lu[facility] 04:06:00 [facility] MAGNESIUM 2021-02-12 Onochleonel, Lluvia [facility] 04:06:00 [facility] PHOSPHORUS 2021-02-12 Onsamira, Lluvia [facility] 04:06:00 [facility] CBC W/PLT COUNT & AUTO 2021-02-12 [facility] DI[facility] 04:06:00 [facility] PHENYTOIN LEVEL, TOTAL 2021-02-12 [facility] 04:06:00 [facility] CREATINE KINASE (CK) 2021-02-[address] [facility] 04:06:[address] [facility] CBC W/PLT COUNT & AUTO 2021-02-12 Robles, [facility] DIFFERENTIAL 04:06:00 [facility] SCREEN, URINE 2021-02-12 [facility] 02:28:00 [facility] POCT-GLUCOSE METER 2021-02-11 Kori Kirby [facility] 23:40:[address] [facility] BASIC METABOLIC PANEL 2020-11-09 [facility] 09:21:00 Zelda HC COMPLETE BLD COUNT W/AUTO 2020-11-09 [facility] DIFF 09:21:00 Zelda IONIZED CALCIUM 2020-11-[facility] Zelda MAG[facility]EVEL 2020-11-[facility]00 Zelda PHOSPHORUS LEVEL 2020-11-09 [facility] [place] 09:21:00 Zelda ESTIMATED GFR 2020-11-[facility]:21[facility]00 Zelda POC GLUCOSE 2020-11-09 [facility] 01:00:00 POC GLUCOSE 2020-11-08 [facility] 20:40:00 POC GLUCOSE 2020-11-08 [facility] 12:52:00 POC GLUCOSE 2020-11-08 [facility] 09:25:00 HC COMPLETE BLD COUNT W/AUTO 2020-11-[address] [facility] 05:28:00 Nadeem BASIC METABOLIC PANEL 2020-11-08 Marissa Suggs [facility] 05:28:00 Nadeem PHOSPHORUS LEVEL 2020-11-08 Marissa Suggs [facility] 05:28:00 Nadeem MAGNESIUM LEVEL 2020-11-08 Marissa Suggs [facility] spital 05:28:00 Nadeem IONIZED CALCIUM 2020-11-08 Marissa Suggs [facility] spital 05:28:00 Nadeem ESTIMATED GFR 2020-11-08 Marissa Suggsist [facility] spital 05:28:00 Nadeem POC GLUCOSE 2020-11-08 [facility]ilee [facility] 05:00:00 POC GLUCOSE 2020-11-08 [facility]Marilee [facility] 01:08:00 POC GLUCOSE 2020 [facility]ilee [facility] 20:34:00 POC GLUCOSE 2020 [facility]Marilee [facility] 16:44:00 POC GLUCOSE 2020 [facility]Marilee [facility] 12:51:00 CT HEAD WO CONTRAST 2020 Johnathan Vinson [facility] 08:52:23 Emitseilu POC GLUCOSE 2020 [facility]Marilee [facility] 08:31:00 HC COMPLETE BLD COUNT W/AUTO 2020 [facility] 05:17:00 MAGNESIUM LEVEL 2020 [facility] 05:17:00 PHOSPHORUS LEVEL 2020 [facility] [place] 05:17:00 IONIZED CALCIUM 2020 [facility] 05:17:00 BASIC METABOLIC PANEL 2020 [facility] 05:17:00 ESTIMATED GFR 2020 [facility] 05:17:00 POC GLUCOSE 2020 [facility]ilee [facility] 04:40:00 POC GLUCOSE 2020 Cristian, Marilee [facility] 00:27:00 POC GLUCOSE 2020-11-06 Cristian, [facility] 22:49:00 CT HEAD WO CONTRAST 2020-11-06 [facility] 22:46:00 BASIC METABOLIC PANEL 2020-11-06 [facility] 21:36:00 HC COMPLETE BLD COUNT W/AUTO 2020-11-06 [facility] DIFF 21:36:00 PARTIAL THROMBOPLASTIN TIME 2020-11-06 [facility] 21:36:00 PROTHROMBIN TIME WITH INR 2020-11-06 [facility] 21:36:00 ESTIMATED GFR 2020-11-06 Cristian, [facility] pital 21:36:00 CT HEAD WO CONTRAST 2020-11-06 [facility] 19:56:54 SODIUM LEVEL, SYRINGE 2020-11-06 Cristian, [facility] 18:16:00 ARTERIAL BLOOD GAS 2020-11-06 Cristian, [facility] 18:16:00 POTASSIUM, SYRINGE 2020-11-06 Cristian, [facility] 18:16:00 IONIZED CALCIUM, ARTERIAL 2020-11-06 Cristian, [facility] 18:16:00 HEMOGLOBIN, SYRINGE 2020-11-06 Cristian, [facility] 18:16:00 GLUCOSE LEVEL, SYRINGE 2020-11-06 Cristian, [facility] 18:16:00 LACTIC ACID, SYRINGE 2020-11-06 Cristian, [facility] 18:16:00 MAGNESIUM LEVEL 2020-11-06 Cristian, [facility] 18:16:00 OR [place] > 1 HOUR 2020-11-06 [facility] 18:00:00 Emitseilu ARTERIAL BLOOD GAS, CORRECTED 2020-11-06 Cristian, [facility] 17:02:00 SODIUM LEVEL, SYRINGE 2020-11-06 Cristian, [facility] 17:02:00 POTASSIUM, SYRINGE 2020-11-06 Cristian, [facility] 17:02:00 HEMOGLOBIN, SYRINGE 2020-11-06 Cristian, [facility] 17:02:00 GLUCOSE LEVEL, SYRINGE 2020-11-06 Cristian, [facility] 17:02:00 IONIZED CALCIUM, ARTERIAL 2020-11-06 Cristian [facility] 17:02:00 MAGNESIUM LEVEL 2020-11-06 Cristian [facility] 17:02:00 LACTIC ACID LEVEL 2020-11-06 Cristian [facility] 17:02:00 ARTERIAL LINE 2020-11-06 AtticaLizzeth [facility] [place] 15:36:[address] ANGIOGRAM HEAD W WO 2020-11-06 Mahesh Zamora [facility] CONTRAST 15:16:00 NC AN ELECTIVE ENDOTRACHEAL 2020-11-06 Lizzeth Pierson [facility] 13:16:00 Prerna IMPLANTATION, DEEP BRAIN 2020-11-06 Cristian [facility] STIMULATOR, STAGE ONE 12:52:00 BASIC METABOLIC PANEL 2020-11-02 Cristian, [facility] 21:09:00 CBC HEMOGRAM 2020-11-02 Cristian, [facility] 21:09:00 PARTIAL THROMBOPLASTIN TIME 2020-11-02 [facility] (PTT) 21:09:00 PROTHROMBIN TIME WITH INR 2020-11-02 [facility] 21:09:00 HEPATIC FUNCTION PANEL 2020-11-02 [facility] 21:09:00 HCG QUALITATIVE, SERUM SCREEN 2020-11-02 [facility] 21:09:00 ESTIMATED GFR 2020-11-02 Cristian [facility] 21:09:00 HEMOGLOBIN A1C 2020-11-02 [facility] pital 21:09:00 ECG PRE/POST OP 2020-11-02 Cristian [facility] 20:48:01 COVID-19 QUALITATIVE RT-PCR 2020-11-02 [facility] 20:37:00 CBC WITH PLATELET AND 2020-10-[address] [facility] DIFFERENTIAL 17:36:00 TROPONIN 2020-10-04 Michelet Godinez [facility] pital 17:36:00 B NATRIURETIC PEPTIDE 2020-10-04 Michelet Godinez [facility] 17:36:00 PHENYTOIN LEVEL 2020-10-04 Michelet [facility] 17:36:00 HC COMPLETE BLD COUNT W/AUTO 2020-10-04 [place] Jacobo [facility] DIFF 17:36:00 ECG 12-LEAD 2020-10-04 Michelet Godinez [facility] pital 16:22:39 COMPREHENSIVE METABOLIC PANEL 2020-10-04 GodinezMichelet carbajal [facility] 16:20:00 ESTIMATED GFR 2020-10-04 Michelet Godinez [facility] pital 16:20:00 HC COMPLETE BLD COUNT W/AUTO 2020-09-13 [facility] DIFF 09:31:00 COMPREHENSIVE METABOLIC PANEL 2020-09-13 [facility] 09:31:00 ESTIMATED GFR 2020-09-13 [facility] 09:31:00 HC COMPLETE BLD COUNT W/AUTO 2020-09-12 [facility] DIFF 10:40:00 COMPREHENSIVE METABOLIC PANEL 2020-09-12 [facility] 09:00:00 ESTIMATED GFR 2020-09-12 [facility] 09:00:00 FERRITIN LEVEL 2020-09-11 [facility] 09:[facility]00 TOTAL IRON BINDING CAPACITY 2020-09-11 [facility] 09:48:00 CT HEAD WO CONTRAST 2020-09-11 Ulises Choudhary Ho spital 02:15:00 XR CHEST 1 VW PORTABLE 2020-09-10 Yovany Van [facility] 22:39:00 URINE CULTURE 2020-09-10 Alexander Hugo [facility]ital 22:05:00 URINALYSIS SCREEN AND 2020-09-10 Alexander Hugo [facility] MICROSCOPY, WITH REFLEX TO 21:30:00 CULTURE HCG QUALITATIVE, URINE SCREEN 2020-09-10, [facility] 21:30:00 COVID-19 QUALITATIVE RT-PCR 2020-09-10 Yovany Van [facility] 21:24:00 HC COMPLETE BLD COUNT W/AUTO 2020-09-10, [facility] DIFF 19:59:00 COMPREHENSIVE METABOLIC PANEL 2020-09-10, [facility] 19:00:00 ESTIMATED GFR 2020-09-10 Tu, [facility] ospital 19:00:00 REFERRAL OCCUPATIONAL THERAPY 2020-07-26 Daniel Ross iversity of 00:00:00 [facility] HC COMPLETE BLD COUNT W/AUTO 2020-06-29 [facility] DIFF 11:00:00 FREE PHENYTOIN LEVEL 2020-06-29 [facility] 11:[facility]:00 BASIC METABOLIC PANEL 2020-06-29 [facility] 10:00:00 MAGNESIUM LEVEL 2020-06-29 [facility] 10:00:00 PHOSPHORUS LEVEL 2020-06-29 [facility] [place] 10:00:00 PHENYTOIN LEVEL 2020-06-29 [facility] 10:00:00 ESTIMATED GFR 2020-06-29 [facility] 10:00:00 HC COMPLETE BLD COUNT W/AUTO 2020-06-28 [facility] DIFF 11:00:00 BASIC METABOLIC PANEL 2020-06-28 [facility] 10:00:00 MAGNESIUM LEVEL 2020-06-28 [facility] 10:00:00 PHOSPHORUS LEVEL 2020-06-28 [facility] [place] 10:00:00 PHENYTOIN LEVEL 2020-06-28 [facility] 10:00:00 FREE PHENYTOIN LEVEL 2020-06-28 [facility] 10:00:00 ESTIMATED GFR 2020-06-28 [facility] EEG AWAKE/ASLEEP LESS THAN 41 2020-06-27 [place] [facility] MIN 23:27:27 BASIC METABOLIC PANEL 2020-06-27 [facility] 11:00:00 HC COMPLETE BLD COUNT W/AUTO 2020-06-27 [facility] DIFF 11:00:00 MAGNESIUM LEVEL 2020-06-27 [facility] 11:00:00 PHOSPHORUS LEVEL 2020-06-27 [facility] 11:00:00 PHENYTOIN LEVEL 2020-06-27 [facility] 11:00:00 FREE PHENYTOIN LEVEL 2020-06-27 [facility] ospital 11:00:00 ESTIMATED GFR 2020-06-27 [facility] 11:00:00 SODIUM LEVEL, URINE, RANDOM 2020-06-27 [facility] 03:12:00 Pham OSMOLALITY, URINE 2020-06-27 [facility] ital 03:12:00 Pham OSMOLALITY, SERUM 2020-06-27 [facility] ital 01:10:00 Pham HCG QUALITATIVE, URINE SCREEN 2020-06-27 [facility] 00:50:00 Pham PROTHROMBIN TIME WITH INR 2020-06-26 [facility] 22:30:00 PARTIAL THROMBOPLASTIN TIME 2020-06-26 [facility] (PTT) 22:30:00 HC COMPLETE BLD COUNT W/AUTO 2020-06-26 [facility] DIFF 22:30:00 XR ABDOMEN ACUTE INC CHEST 1V 2020-06-26 [facility] 19:54:27 Pham HC COMPLETE BLD COUNT W/AUTO 2020-06-26 [facility] DIFF 18:26:00 BASIC METABOLIC PANEL 2020-06-26 [facility] 17:25:00 ESTIMATED GFR 2020-06-26 [facility] 17:25:00 VENIPUNC NEED PHYS SKILL,DX [facility]22 CT HEAD WO CONTRAST 2020-06-26 Holcomb, [facility] spital 05:24:53 Pham HC COMPLETE BLD COUNT W/AUTO 2020-06-26 Holcomb, [facility] DIFF 03:00:00 Pham PROTHROMBIN TIME WITH INR 2020-06-26 [facility] 03:00:00 Pham PARTIAL THROMBOPLASTIN TIME 2020-06-26 [facility] (PTT) 03:00:00 Pham B NATRIURETIC PEPTIDE 2020-06-26 [facility] 03:00:00 Pham SMEAR REVIEW 2020-06-26 [facility] 03:[facility]00 Pham COMPREHENSIVE METABOLIC PANEL 2020-06-26 [facility] 02:12:00 Pham PHENYTOIN LEVEL 2020-06-26 [facility] 02:12:00 Pham HC COMPLETE BLD COUNT W/AUTO 2020-06-25 [facility] DIFF 17:53:00 COMPREHENSIVE METABOLIC PANEL 2020-06-25 [facility] 17:53:00 PREALBUMIN LEVEL 2020-06-25 [facility] 17:53:00 MAGNESIUM LEVEL 2020-06-25 [facility] 17:53:00 PHOSPHORUS LEVEL 2020-06-25 [facility] 17:53:00 FREE PHENYTOIN LEVEL 2020-06-25 [facility] ospital 17:53:00 ESTIMATED GFR 2020-06-25 [facility] 17[facility]:00 ACHR ABS, TITIN AB, STM ABS 2020-06-25 [facility] RFLX PANEL 17:53:00 STRIATED MUSCLE ABS, IGG 2020-06-25 [facility] TITER 17:53:00 COVID-19 QUALITATIVE RT-PCR 2020-06-25 [facility] 16:39:00 BASIC METABOLIC PANEL 2020-06-22 [facility] 20:58:00 PARTIAL THROMBOPLASTIN TIME 2020-06-22 [facility] (PTT) 20:58:00 PROTHROMBIN TIME WITH INR 2020-06-22 [facility] 20:58:00 CBC HEMOGRAM 2020-06-22 [facility] Hos pital 20:58:00 HEMOGLOBIN A1C 2020-06-22 Arlene Brumfield [facility] 20:58:00 ESTIMATED GFR 2020-06-22 [facility] pital 20:58:00 CT ABDOMEN PELVIS W CONTRAST 2020-06-19 [facility] 07:41:06 COVID-19 QUALITATIVE RT-PCR 2020-06-19 [facility] 06:31:00 HC COMPLETE BLD COUNT W/AUTO 2020-06-19 [facility] DIFF 06:31:00 COMPREHENSIVE METABOLIC PANEL 2020-06-19 [facility] 06:31:00 LIPASE LEVEL 2020-06-19 [facility] Hosp ital 06:31:00 ESTIMATED GFR 2020-06-19 [facility]osp ital 06:31:00 URINE CULTURE 2020-06-19 [facility]osp ital 05:56:00 URINALYSIS SCREEN AND 2020-06-19 [facility] MICROSCOPY, WITH REFLEX TO 05:56:00 CULTURE HCG QUALITATIVE, URINE SCREEN 2020-06-19 [facility] 05:56:00 CONSENT/REFUSAL FOR DIAGNOSIS 2020-05-30 Doctor Unassigned, University AND TREATMENT 06:01:00 [place] [facility] REFERRAL OCCUPATIONAL THERAPY 2020-05-30 Jeremy Gaona Un iversity of 00:00:00 [facility] EXTERNAL PROVIDER RECORDS 2020-05-28 Doctor Unassigned, Uni versity of 06:01:00 [facility] [facility] POCT GLUCOSE (AUTOMATED) 2020-05-16 [place] of 17:35:00 [facility] PHOSPHORUS 2020-05-11 Andreea Sawant [facility] 11:43:00 [facility] MAGNESIUM 2020-05-11 Andreea Sawant [place] of 11:43:00 [facility] BASIC METABOLIC PANEL (NA, K, 2020-05-11 Andreea Sawant Un iversity of CL, CO2, GLUCOSE, BUN, 11:43:00 [place] [facility] CREATININE, [place]) Branch PHOSPHORUS 2020-05-09 Andreea Sawant [facility] 09:54:00 [facility] MAGNESIUM 2020-05-09 Andreea Sawant [facility] 09:54:00 [facility] BASIC METABOLIC PANEL (NA, K, 2020-05-09 Andreea Sawant Un iversity of CL, CO2, GLUCOSE, BUN, 09:54:00 [place] [facility] CREATININE, [place]) Branch CBC WITH DIFF 2020-05-09 Andreea Sawant [facility] 09:54:00 [facility] MINOR BURN DEBRIDEMENT 2020-05-08 Ernesto Verdugo [facility] y of 17:08:00 [facility] AUTOGRAFT HARVEST AND 2020-05-08 [facility] of APPLICATION 17:08:00 [facility] XENOGRAFT APPLICATION 2020-05-08 [facility] of 17:08:00 [facility] PHOSPHORUS 2020-05-08 Andreea Sawant [facility] 10:43:00 [facility] MAGNESIUM 2020-05-08 Andreea Sawant [facility] 10:43:00 [facility] BASIC METABOLIC PANEL (NA, K, 2020-05-08 Andreea Sawant Un iversity of CL, CO2, GLUCOSE, BUN, 10:43:00 [place] [facility] CREATININE, [place]) Branch CBC WITH DIFF 2020-05-08 Andreea Sawant [facility] 10:43:00 [facility] TEST, URINE 2020-05-07 Andreea Sawant [facility] 17:51:00 [facility] HB ABO GROUPING 2020-05-07 Andreea Sawant University of 14:20:00 [facility] PHOSPHORUS 2020-05-06 Andreea Sawant [place] of 10:02:00 [facility] MAGNESIUM 2020-05-06 Andreea Sawant [place] of 10:02:00 [facility] BASIC METABOLIC PANEL (NA, K, 2020-05-06 Jese, Andreea Dotson Un iversity of CL, CO2, GLUCOSE, BUN, 10:02:00 [place] [facility] CREATININE, CA) Branch CBC WITH DIFF 2020-05-06 Andreea Sawant University of 10:02:00 [facility] VANCOMYCIN TROUGH 2020-05-06 Andreea Sawant [place] of 02:15:00 [facility] MISCELLANEOUS SEND OUT TEST 2020-05-05 [facility] ersity of 11:11: [facility] EXTRA TUBE LAV 2020-05-05 [facility] 11:11: [facility] EXTRA TUBE SST 2020-05-05 [facility] of 11:11:00 [facility] PHOSPHORUS 2020-05-04 Murali [facility] of 09:35:00 [facility] MAGNESIUM 2020-05-04 [facility] of 09:35:00 [facility] BASIC METABOLIC PANEL (NA, K, 2020-05-04 Rhonda Carrion Un iversity of CL, CO2, GLUCOSE, BUN, 09:35:00 [place] [facility] ica CREATININE, CA) Branch CBC WITH DIFF 2020-05-04 Murali Rhonda [place] of 09:35:00 [facility] KEPPRA (LEVETIRACETAM) 2020-05-04 Murali [facility] y of 09:35:00 [facility] ELECTROENCEPHALOGRAM 2020-05-04 [facility] of 00:00:[address] [facility] COVID-19 (ID NOW RAPID 2020-05-04 Rhonda Carrion [facility] of TESTING) 00:00:00 [facility] LAB ONLY COVID INTERPRETATION 2020-05-04 Rhonda Carrion Un iversity of 00:00:00 [facility] COVID-19 QUALITATIVE RT-PCR 2020-05-02 Turner, [facility] 22:10:00 URINE CULTURE 2020-05-02 [facility], [facility] Hos pital 21:51:00 CT HEAD WO CONTRAST 2020-05-02 [facility] 21:47:02 HC COMPLETE BLD COUNT W/AUTO 2020-05-02 [facility] DIFF 21:30:00 HCG QUALITATIVE, SERUM SCREEN 2020-05-02 [facility], [facility] 21:30:00 BASIC METABOLIC PANEL 2020-05-02 [facility], [facility] 21:30:00 ESTIMATED GFR 2020-05-02 [facility], [facility] pital 21:30:00 SMEAR REVIEW 2020-05-02 [facility], [facility] pital 21:30:00 URINALYSIS SCREEN AND 2020-05-02 [facility] MICROSCOPY, WITH REFLEX TO 21:28:00 CULTURE POC GLUCOSE 2020-04-06 Freddy Ocasio [facility] 22:27:00 SS-B ANTIBODY 2020-04-06 [facility] Hosp ital 21:50:00 [facility] DOUBLE-STRANDED DNA (DSDNA) 2020-04-06 [facility] ANTIBODIES, CRITHIDIA 21:50:00 [facility] CENTROMERE ANTIBODY 2020-04-06 [facility] 21:50:00 Ahmed POTASSIUM LEVEL 2020-04-05 Valentino, [facility] 22:40:00 HOMOCYSTINE, PLASMA 2020-04-05 Valentino, [facility] spital 22:40:00 EEG AWAKE/DROWSY LESS THAN 41 2020-04-05 [facility] 16:03:26 HC COMPLETE BLD COUNT W/AUTO 2020-04-05 Jerson Maxwell [facility] DIFF 09:00:00 VITAMIN B12 LEVEL 2020-04-05 Valentino, [facility] ital 09:00:00 C-REACTIVE PROTEIN 2020-04-05 Valentino, [facility] 09:00:00 HOMOCYSTINE, PLASMA 2020-04-05 [facility] [place] Ho spital 09:00:00 RHEUMATOID FACTOR 2020-04-05 [facility] [place] Hosp ital 09:00:00 THYROID STIMULATING HORMONE 2020-04-05 [facility] 09:00:00 T4, FREE 2020-04-05 [facility], [facility] Hospit al 09:00:00 T3 2020-04-05 [facility] 09:[facility]:00 SYPHILIS TREPONEMA SCREEN 2020-04-05 [facility] WITH RPR CONFIRMATION 09:00:00 (REVERSE ALGORITHM) HIV AG/AB COMBINATION 2020-04-05 [facility], [facility] 09:00:00 VITAMIN D 25 HYDROXY LEVEL 2020-04-05 [facility] 09:00:00 BASIC METABOLIC PANEL 2020-04-05 [facility] 09:00:00 FOLATE LEVEL 2020-04-05 [facility] 09:00:00 MAGNESIUM LEVEL 2020-04-05 [facility] [place] 09:00:00 ESTIMATED GFR 2020-04-05 [facility] 09:00:00 COVID-19 QUALITATIVE RT-PCR 2020-04-05 [facility] 03:52:00 CT HEAD WO CONTRAST 2020-04-05 [facility] 02:17:59 CBC HEMOGRAM 2020-04-05 [facility] ital 02:00:00 SEDIMENTATION RATE 2020-04-05 [facility] 02:00:00 URINE CULTURE 2020-04-05 [facility] 01:52:00 KEPPRA (LEVETIRACETAM) LEVEL 2020-04-05 [facility] 01:15:00 URINALYSIS SCREEN AND 2020-04-05 [facility] MICROSCOPY, WITH REFLEX TO 00:19:00 CULTURE URINE DRUGS OF ABUSE SCREEN 2020-04-05 Enricomaria eugenia [facility] 00:19:00 PROLACTIN LEVEL 2020-04-05 [facility] 00:07:00 ECG 12-LEAD 2020-04-05 Max Ron Cobos [facility] 00:02:38 CRITICAL CARE 2020-04-04 Lila Byers [facility] 23:48:10 COMPREHENSIVE METABOLIC PANEL 2020-04-04 Max Ron [facility] 23:33:00 LACTIC ACID LEVEL, SEPSIS - 2020-04-04 Max Ron [facility] NOW AND REPEAT 2X EVERY 3 23:33:00 HOURS MAGNESIUM LEVEL 2020-04-04 Max Ron [facility] Hosp ital 23:33:00 PHOSPHORUS LEVEL 2020-04-04 [facility] 23:33:00 ESTIMATED GFR 2020-04-04 Max Ron [facility] 23:33:00 PET BRAIN METABOLIC EVAL 2020-03-30 [facility] 18:51:58 POC GLUCOSE 2020-03-30 [facility] al 17:29:00 MRI BRAIN W WO CONTRAST 2020-03-27 [facility] 18:50:00 MONITORED VIDEO-EEG 60 HRS 1 2020-03-15 [facility] MIN-74 HRS 17:14:01 MONITORED W VIDEO DAILY 2020-03-15 [facility] 05:12:21 MONITORED W VIDEO DAILY 2020-03-14 [facility] 05:24:17 EEG SETUP 2020-03-13 [facility] al 05:17:20 HC COMPLETE BLD COUNT W/AUTO 2020-03-12 Ulises Choudhary [facility] DIFF 19:18:00 COMPREHENSIVE METABOLIC PANEL 2020-03-12 [facility] 19:18:00 ESTIMATED GFR 2020-03-12 Huizar [facility] al 19:18:00 MAGNESIUM LEVEL 2020-03-12 Huizar [facility] 19:18:00 CT HEAD WO CONTRAST 2020-03-12 Ulises Choudhary [facility] spital 18:25:51 COVID-19 QUALITATIVE RT-PCR 2020-03-12 RadhaUlises [facility] 16:53:00 ADC / LCC - DRUG SCREEN 2020-01-17 Pamela Last [facility] ity of TRIAGE 05:06:00 [facility] XR CHEST 1 VW 2020-01-17 Pamela Last [facility] 04:09:36 [facility] POCT TEST 2020-01-17 Pamela Last [facility] 03:58:00 [facility] HEPATIC FUNCTION PANEL 2020-01-17 [facility] of ([id number]) (ALB,T.PRO,BILI 03:33:00 [facility] dical T,BU/BC,ALT,AST,ALK PHOS) Branch BASIC METABOLIC PANEL (NA, K, 2020-01-17 Duane Pamela U niversity of CL, CO2, GLUCOSE, BUN, 03:33:00 [facility] ical CREATININE, CA) Branch CBC WITH DIFF 2020-01-17 Pamela Last [facility] 03:33:00 [facility] URINALYSIS 2020-01-17 [facility] 03:33:00 [facility] NOTICE OF PRIVACY PRACTICES 2020-01-17 Doctor Unassigned, U niversity of 02:51:20 [place] [facility] CONSENT/REFUSAL FOR DIAGNOSIS 2020-01-17 Doctor Unassigned, University of AND TREATMENT 02:50:58 [facility] CT ABDOMEN PELVIS W CONTRAST 2019-11-29 Brittany Bee [facility] 21:09:55 [facility] POCT TEST 2019-11-29 Kris Rogers [place] of 19:28:00 [facility] LIPASE 2019-11-29 Kris Rogers [facility] of 19:25:00 [facility] COMP. METABOLIC PANEL ([id number]) 2019-11-29 Kris Rogers U niversity of 19:25:00 [facility] CBC WITH DIFFERENTIAL 2019-11-29 Kris Rogers [facility] of 19:25:00 [facility] URINALYSIS 2019-11-29 Kris Rogers [place] of 19:25:00 [facility] COVID-19 (ID NOW RAPID 2019-11-29 Kris Rogers [facility] ty of TESTING) 19:25:00 [facility] NOTICE OF PRIVACY PRACTICES 2019-11-29 Doctor Unassigned, U niversity of 18:51:07 [place] [facility] CONSENT/REFUSAL FOR DIAGNOSIS 2019-11-29 Doctor Unassigned, University of AND TREATMENT 18:45:48 [facility] [facility] ASSIGNMENT OF BENEFITS 2019-08-10 Doctor Unassigned, Univer sity of 20:10:44 [facility] [facility] MAGNESIUM 2019-02-04 Carl [facility] of 05:22:[address] [facility] BASIC METABOLIC PANEL (NA, K, 2019-02-04 Carl [facility] iversity of CL, CO2, GLUCOSE, BUN, 05:22:00 [facility] ical CREATININE, [place]) Branch CBC WITH DIFFERENTIAL 2019-02-04 [facility] of 05:22:[address] [facility] CREATINE KINASE 2019-02-04 [facility] 04:21:[address] [facility] TEST, SERUM 2019-02-04 [facility] 04:21:[address] [facility] PHENYTOIN 2019-02-04 [facility] 04:21:[address] [facility] ETHANOL 2019-02-04 [facility] 04:21:[address] [facility] PHENYTOIN FREE 2019-02-04 [facility] of 04:21:[address] [facility] KEPPRA (LEVETIRACETAM) 2019-02-04 [facility] of 04:21:[address] [facility] EXTRA TUBE RED 2019-02-04 Marilee Rascon [facility] 04:21:00 [facility] CT HEAD WO CONTRAST 2019-02-04 [facility] o f 03:39:[address] [facility] PHOSPHORUS 2019-02-03 [facility] 22:46:[address] [facility] MAGNESIUM 2019-02-03 Kris Rogers [facility] of 22:46:00 [facility] HEPATIC FUNCTION PANEL 2019-02-03 [facility] ([id number]) (ALB,T.PRO,BILI 22:46:00 [facility] dical T,BU/BC,ALT,AST,ALK PHOS) Branch COMP. METABOLIC PANEL ([id number]) 2019-02-03 Kris Rogers U niversity of 22:46:00 [facility] CBC WITH DIFFERENTIAL 2019-02-03 Kris Rogers Universit y of 22:46:00 [facility] POCT TEST 2019-02-03 Kris Rogers [facility] 22:33:00 [facility] URINALYSIS 2019-02-03 Kris Rogers [facility] 22:32:00 [facility] ADC / LCC - DRUG SCREEN 2019-02-03 Kris Rogers [facility] ity of TRIAGE 22:32:00 [facility] EMERGENCY DEPARTMENT 2019-02-03 Doctor Unassigned, [facility] ty of DOCUMENTS 05:01:00 [place] [facility] EMERGENCY SERVICES AGREEMENTS 2019-02-03 Doctor Unassigned, [facility] AND AUTHORIZATIONS 05:01:00 [place] [facility] Plan of Care Planned Activity Planned Date Details Comments Source Future Scheduled 2030-05-02 DTAP/TDAP/TD VACCINES ([address] [facility] Test 00:00:00 - Td or Tdap) [code = Medica l Center DTAP/TDAP/TD VACCINES (3 - Td or Tdap)] Future Scheduled 2030-05-02 DTAP/TDAP/TD VACCINES ([address] [facility] Test 00:00:00 - Td or Tdap) [code = Medica l Center DTAP/TDAP/TD VACCINES (3 - Td or Tdap)] Future Scheduled 2030-05-02 DTAP/TDAP/TD VACCINES ([address] [facility] Test 00:00:00 - Td or Tdap) [code = Medica l Center DTAP/TDAP/TD VACCINES (3 - Td or Tdap)] Future Scheduled 2023-05-16 COVID-19 VACCINE (#[facility]) [facility] 08:[facility]02 [code = COVID-19 VACCINE Hos pital (#1)] Future Scheduled 2023-05-16 Hepatitis C screening [facility] 08:09:02 (procedure) [code = Hospital [id number]] Future Scheduled 2023-05-16 Screening for malignant [facility] 08:09:02 neoplasm of cervix Hospital (procedure) [code = 321150676] Future Scheduled 2023-05-16 INFLUENZA VACCINE (#1) M ethodist Test 08:09:02 [code = INFLUENZA VACCINE Ho spital (#1)] Future Scheduled 2023-04-13 COVID-19 VACCINE (#1) [facility] 15:39:00 [code = COVID-19 VACCINE Hos pital (#1)] Future Scheduled 2023-04-13 Hepatitis C screening [facility] 15:39:00 (procedure) [code = Hospital [id number]] Future Scheduled 2023-04-13 Screening for malignant [facility] 15:39:00 neoplasm of cervix Hospital (procedure) [code = 925823271] Future Scheduled 2023-04-13 INFLUENZA VACCINE (#1) M ethodist Test 15:39:00 [code = INFLUENZA VACCINE Ho spital (#1)] Future Scheduled 2023-02-13 Influenza Vaccine (#1[facility] 00:[facility] [code = Influenza Vaccine Me dical Center (#1)] Future Scheduled 2023-02-13 Influenza Vaccine (#1[facility] 00:00:00 [code = Influenza Vaccine Me dical Center (#1)] Future Scheduled 2022-06-[address] [facility] Test 00:00:00 (12+) [code = DEPRESSION Med ical Center SCREENING (12+)] Future Scheduled 2022-06-[address] [facility] Test 00:00:00 (12+) [code = DEPRESSION Med ical Center SCREENING (12+)] Future Scheduled 2021-02-13 INFLUENZA VACCINE (#1) [facility] 00:00:00 [code = INFLUENZA VACCINE Me dical Center (#1)] Future Scheduled 2020-06-[address] [facility] Test 00:00:00 (12+) [code = DEPRESSION Med ical Center SCREENING (12+)] Future Scheduled 2010 Screening for malignant [facility] Test 00:00:00 neoplasm of cervix Medical C enter (procedure) [code = 051868526] Future Scheduled 2010 Screening for malignant [facility] Test 00:00:00 neoplasm of cervix Medical C enter (procedure) [code = 450224617] Future Scheduled 2010 Screening for malignant [facility] Test 00:00:00 neoplasm of cervix Medical C enter (procedure) [code = 838553973] Future Scheduled 2007-11-08 HEPATITIS C [facility]CRE[facility]ING [facility] 00:00:00 [code = HEPATITIS C Medical Center SCREENING] Future Scheduled 2007-11-08 HEPATITIS C [facility] 00:00:00 [code = HEPATITIS C Medical Center SCREENING] Future Scheduled 2007-11-08 HEPATITIS C [facility] 00:00:00 [code = HEPATITIS C Medical Center SCREENING] Future Scheduled 2004 Human immunodeficiency [facility] 00:00:00 virus screening Medical Cent er (procedure) [code = 704493964] Future Scheduled [address] Human immunodeficiency [facility] 00:00:00 virus screening [facility] (procedure[facility] [code = 639329650] Future Scheduled 2001 COVID-19 VACCINE (1) [facility] 00:00:00 [code = COVID-19 VACCINE Med ical Center (1)] Future Scheduled [address] [facility] Test 00:00:00 Counseling and Screening Med ical Center (12+) [code = Tobacco Cessation Counseling and Screening (12+)] Future Scheduled [address] [facility] Test 00:00:00 Counseling and Screening Med ical Center (12+) [code = Tobacco Cessation Counseling and Screening (12+)] Future Scheduled 1990-05-10 COVID-19 VACCINE (#1) [facility] [code = COVID-19 VACCINE Med ical Center (#1)] Future Scheduled 1990-05-10 COVID-19 VACCINE (#1) [facility] [code = COVID-19 VACCINE Med ical Center (#1)] Future Scheduled COVID-19 VACCINE (1) [facility] [code = COVID-19 VACCINE Hos pital (1)] Future Scheduled Hepatitis C screening [facility] (procedure) [code = Hospital 098430109] Future Scheduled Screening for malignant [facility] neoplasm of cervix Hospital (procedure) [code = 118831303] Future Scheduled INFLUENZA VACCINE [code = [facility] Test INFLUENZA VACCINE] Hospital Encounters Start End Encounter Admission Attending Care Care Encounter Source Date/Time Date/Time Type Type Clinicians Facility Department ID 2021-04-13 Outpatient ODELL[facility]SIRV [facility] [id number] [facility] 23:23:24 ENT, NATE ity [facility] 2021-02-13 Hospital [facility] [id number] [facility] 00:00:00 Encounter [facility] 2021-02-11 Inpatient ER [facility] [id number] [facility] 22:57:00 KORI Finch 2023-04-16 2023-04-16 Outpatient SFA SFA [id number]- [place] 10:56:00 10:56:00 [id number] F Papo 2023-04-01 2023-04-01 Outpatient SFA [facility] [place] 13:29:10 13:29:10 [id number] F Appo 2023-02-23 2023-02-23 Outpatient SFA [facility] [place] 13:34:44 13:34:44 [id number] F Papo 2021-04-18 2021-04-18 Outpatient R ODELL-SIRV [facility] [id number] [facility] 09:45:00 09:45:00 ENT, NATE cruz [facility] 2021-03-26 2021-03-26 Outpatient MARY HUIZAR [facility] [id number] [place] 00:00:00 00:00:[address] 2021-02-25 2021-02-25 Transition JORGITO Damian 1.2.840.114 [id number] [id number] Univers 00:00:00 00:00:00 of Care Fanny ADEN 350.1.13.10 [facility] 4.2.7.2.686 Kehinde as [phone] [address] 2021-02-14 2021-02-14 Telephone Niki 1.2.840.1 [id number] 2100 [id number] Nancyi 00:00:00 00:00:00 Dayahna A 27593.1.[address] 3.430.2.7 Hospit a .3.625319 l .8 2021-02-12 2021-02-12 Travel [facility] [id number] [facility] 00[facility]00 [facility] 2021-02-04 2021-02-04 Telephone Odell-Freddie David 1.2.840.114 [id number] [facility] 00:00:00 00:00:00 ent, Nate Aden 350.1.13.10 ity [facility] 4.2.7.2.686 Kehinde as [phone] [facility] [address] 2021-01-29 2021-01-29 Refill Niki, 1.2.840.1 [id number] 2448 Methodi 00:00:00 00:00:00 Dayahna A 94836.1.[address] 3.430.2.7 Hospit a .3.570389 l .8 2021-01-25 2021-01-25 Telephone Rafael, 1.2.840.1 [id number] 518 [id number] Methodi 00:00:00 00:00:[address] 3.430.2.7 Hospit a .3.683518 l .8 2021-01-15 2021-01-15 Telephone Mary Huizar 1.2.840.1 [id number] Methodi 00:00:00 00:00:[address] 3.430.2.7 Hospit a .3.847813 l .8 2021-01-07 2021-01-07 Telephone Prince, 1.2.840.1 [id number] 2099 [id number] Methodi 00:00:00 00:00:00 Dayahna A [address]205.1.[address] 3.430.2.7 Hospit a .3.684601 l .8 2021-01-07 2021-01-07 Travel 1.2.840.1 1.2.087.546 8450 751888 Methodi 00:00:00 00:00:[address] 3.430.2.7 0.2.7.3.698 Ho spita .3.586910 084.8 l .8 2020-12-06 2020-12-06 Travel 1.2.840.1 1.2.722.946 4040 053420 Methodi 00:00:00 00:00:[address] 3.430.2.7 0.2.7.3.698 Ho spita .3.024180 084.8 l .8 2020-11-29 2020-11-29 Clinical 1.2.840.1 [id number] 37632 64671 Methodi 12:19:22 12:19:[address] 3.430.2.7 Hospit a .3.606968 l .8 2020-11-29 2020-11-29 Office Mary Huizar 1.2.840.1 [id number] 21 [id number] Methodi 09:43:47 10:44:[address] 3.430.2.7 Hospit a .3.837708 l .8 2020-11-29 2020-11-29 Travel 1.2.840.1 1.2.243.944 5685 073292 Methodi 00:00:00 00:00:[address] 3.430.2.7 0.2.7.3.698 Ho spita .3.613061 084.8 l .8 2020-11-20 2020-11-20 Telephone [employer] Joann 1.2.840.114 [id number] [facility] 00:00:00 00:00:00 ent, Nate Aden 350.1.13.10 ity [facility] 4.2.7.2.686 Kehinde as [phone] [facility] [address] 2020-11-20 2020-11-20 Travel 1.2.840.1 1.2.451.819 4818 316788 Methodi 00:00:00 00:00:[address] 3.430.2.7 0.2.7.3.698 Ho spita .3.875952 084.8 l .8 2020-11-20 2020-11-20 Telephone [employer] Joann 1.2.840.114 [id number] 00:00:00 00:00:00 ent, Nate Aden 350.1.13.10 [facility] 4.2.7.2.686 [id number] 184 2020-11-15 2020-11-15 Transition JORGITO Damian 1.2.840.114 847 [id number] Univers 00:00:00 00:00:00 of Care Fanny ADEN 350.1.13.10 [facility] 4.2.7.2.686 Kehinde as [phone] [facility] [address] 2020-11-15 2020-11-15 Transition JORGITO Damian 1.2.840.114 847 [id number] 00:00:00 00:00:00 of Care Fanny ADEN 350.1.13.10 [facility] 4.2.7.2.686 [id number] 082 2020-11-13 2020-11-13 Travel 1.2.840.1 1.2.632.073 7208 097346 Methodi 00:00:00 00:00:[address] 3.430.2.7 0.2.7.3.698 Ho spita .3.782360 084.8 l .8 2020-11-06 2020-11-09 Hospital Marilee Foster 1.2.840.1 [id number] 2 [id number] Methodi 06:59:00 16:22:00 Encounter Justin 91034.1.[address] 3.430.2.7 Hospit a .3.475519 l .8 2020-11-02 2020-11-08 Pre-Admiss Marilee Foster 1.2.840.1 [id number] Methodi 15:00:56 14:25:19 ion Justin 47909.1.[address] Testing 3.430.2.7 Hospit a .3.131478 l .8 2020-11-06 2020-11-06 Anesthesia Ramos Reyes 1.2.840.1 [id number] Methodi 07:52:00 16:31:00 Event Arlene Brumfield 12743.1.[address] 3.430.2.7 Hospit a .3.614634 l .8 2020-11-06 2020-11-06 Surgery Marilee Foster 1.2.840.1 [id number] Methodi 08:00:00 16:00:[address] 3.430.2.7 Hospit a .3.234094 l .8 2020-11-06 2020-11-06 Travel 1.2.840.1 1.2.957.648 8688 052924 Methodi 00:00:00 00:00:[address] 3.430.2.7 0.2.7.3.698 Ho spita .3.138327 084.8 l .8 2020-11-02 2020-11-02 Travel 1.2.840.1 1.2.779.184 7562 831350 Methodi 00:00:00 00:00:[address] 3.430.2.7 0.2.7.3.698 Ho spita .3.694588 084.8 l .8 2020-10-31 2020-10-31 Travel 1.2.840.1 1.2.436.891 0398 323587 Methodi 00:00:00 00:00:[address] 3.430.2.7 0.2.7.3.698 Ho spita .3.890265 084.8 l .8 2020-10-23 2020-10-23 Transition JORGITO Damian 1.2.840.114 842 41714 00:00:00 00:00:00 of Care Fanny ADEN 350.1.13.10 HOSPITAL 4.2.7.2.686 [phone] 082 2020-10-23 2020-10-23 Transition JORGITO Damian 1.2.840.114 842 [id number] [facility] 00:00:00 00:00:00 of Care Fanny A KEIKO 350.1.13.10 ity of [facility] 4.2.7.2.686 Kehinde as [phone] [facility] [address] 2020-10-16 2020-10-16 Telephone Niki, 1.2.840.1 [id number] 2099 [id number] Methodi 00:00:00 00:00:00 Maria E Dotson 50227.1.[address] 3.430.2.7 Hospit a .3.219674 l .8 2020-10-04 2020-10-04 Emergency Donnell, 1.2.840.1 [id number] 2099 503149 Methodi 11:19:00 14:27:00 [place] 84215.1.1 400 s t 3.430.2.7 Hospit a .3.166690 l .8 2020-10-04 2020-10-04 Office Huizar Mary 1.2.840.1 [id number] Methodi 09:39:04 10:21:[address] 3.430.2.7 Hospit a .3.953314 l .8 2020-10-04 2020-10-04 Telephone Niki, 1.2.840.1 [id number] 2099 284326 Methodi 00:00:00 00:00:00 Maria E Dotson 58126.1.[address] 3.430.2.7 Hospit a .3.773731 l .8 2020-10-04 2020-10-04 Telephone Rafael, 1.2.840.1 [id number] 443 [id number] Methodi 00:00:00 00:00:[address] 3.430.2.7 Hospit a .3.599405 l .8 2020-10-04 2020-10-04 Travel 1.2.840.1 1.2.067.629 8906 862432 Methodi 00:00:00 00:00:[address] 3.430.2.7 0.2.7.3.698 Ho spita .3.164203 084.8 l .8 2020-10-03 2020-10-03 Orders Marilee Foster 1.2.840.1 [id number] 21 [id number] Methodi 00:00:00 00:00:00 Only Justin 07099.1.[address] 3.430.2.7 Hospit a .3.115937 l .8 2020-10-01 2020-10-01 Telephone Rafael, 1.2.840.1 [id number] 132 [id number] Methodi 00:00:00 00:00:[address] 3.430.2.7 Hospit a .3.313534 l .8 2020-10-01 2020-10-01 Travel 1.2.840.1 1.2.090.097 1087 221726 Methodi 00:00:00 00:00:[address] 3.430.2.7 0.2.7.3.698 Ho spita .3.234989 084.8 l .8 2020-09-28 2020-09-28 Telephone Jojo Cruz 1.2.840.1 [id number] 2 [id number] Methodi 00:00:00 00:00:[address] 3.430.2.7 Hospit a .3.046660 l .8 2020-09-26 2020-09-26 Office Marilee Foster 1.2.840.1 [id number] 21 [id number] Methodi 11:29:57 12:34:50 Visit Justin 18815.1.[address] 3.430.2.7 Hospit a .3.802415 l .8 2020-09-25 2020-09-25 Travel 1.2.840.1 1.2.322.725 5046 899072 Methodi 00:00:00 00:00:[address] 3.430.2.7 0.2.7.3.698 Ho spita .3.316622 084.8 l .8 2020-09-21 2020-09-21 Travel 1.2.840.1 1.2.652.189 4487 959655 Methodi 00:00:00 00:00:[address] 3.430.2.7 0.2.7.3.698 Ho spita .3.947911 084.8 l .8 2020-09-19 2020-09-19 Transition JORGITO Damian 1.2.840.114 833 12283 00:00:00 00:00:00 of Care Fanny ADEN 350.1.13.10 [facility] 4.2.7.2.686 [id number] 082 2020-09-19 2020-09-19 Transition JORGITO Damian 1.2.840.114 833 23738 Univers 00:00:00 00:00:00 of Care Fanny ADEN 350.1.13.10 ity [facility] 4.2.7.2.686 Kehinde as [phone] [address] 2020-09-10 2020-09-13 [facility] 1.2.840.1 43916 1210 [id number] Methodi 14:00:00 15:51:00 Encounter Rosalie Koenig 76920.1.[address] 3.430.2.7 Hospit a .3.912542 l .8 2020-09-10 2020-09-10 Telephone Rafael, 1.2.840.1 [id number] 070 [id number] Methodi 00:00:00 00:00:[address] 3.430.2.7 Hospit a .3.915407 l .8 2020-09-10 2020-09-10 Telephone Niki, 1.2.840.1 [id number] 2099 254358 Methodi 00:00:00 00:00:00 Daydarryl A 24715.1.[address] 3.430.2.7 Hospit a .3.927703 l .8 2020-09-10 2020-09-10 Travel 1.2.840.1 1.2.920.881 4468 265973 Methodi 00:00:00 00:00:[address] 3.430.2.7 0.2.7.3.698 Ho spita .3.052299 084.8 l .8 2020-09-05 2020-09-05 Travel 1.2.840.1 1.2.276.224 8054 092584 Methodi 00:00:00 00:00:[address] 3.430.2.7 0.2.7.3.698 Ho spita .3.749353 084.8 l .8 2020-09-04 2020-09-04 Patient Carlo [facility] 1.2.840.114 [id number] 12 00:00:00 00:00:00 Outreach [facility] 350.1.13.10 [place] [facility] 4.2.7.2.686 PAVILLION [phone] 388 2020-09-04 2020-09-04 Patient Carlo [facility] 1.2.840.114 [id number] 12 Univers 00:00:00 00:00:00 Outreach [facility] 350.1.13.10 i ty of [place] [phone] [place] [address] 2020-08-22 2020-08-22 Telephone Rafael, 1.2.840.1 [id number] 283 [id number] Methodi 00:00:00 00:00:[address] 3.430.2.7 Hospit a .3.149760 l .8 2020-08-21 2020-08-21 Orders Huizar, Mary 1.2.840.1 [id number] 21 [id number] Methodi 00:00:00 00:00:[address] 3.430.2.7 Hospit a .3.109863 l .8 2020-08-16 2020-08-16 Refill Niki, 1.2.840.1 [id number] 575054 0890 Methodi 00:00:00 00:00:00 Dayahna A 95413.1.[address] 3.430.2.7 Hospit a .3.534966 l .8 2020-07-27 2020-07-27 Prep For Joann Ross 1.2.840.114 08976 545 Univers 00:00:00 00:00:00 Surgery Daniel Keiko 350.1.13.10 it y of [facility] 4.2.7.2.686 Kehinde as [phone] [facility] [address] [place] 2020-07-26 2020-07-26 [facility] Darvin Daily 1.2.840.114 8 [id number] 09:42:44 23:59:00 Encounter Keiko 350.1.13.10 [facility] 4.2.7.2.686 [id number] [facility] 2020-07-26 2020-07-26 [facility] Darvin Daily 1.2.840.114 8 [id number] Univers 09:42:44 23:59:00 Encounter Odell-SirventNate 3 50.1.13.10 ity [facility] 4.2.7.2.686 Kehinde as [phone] [facility] [address] [place] 2020-07-26 2020-07-26 Ancillary Room, Emily-Occup Therapy Tub Hanna 1.2.840.114 [id number] Univers 11:18:18 12:18:18 Visit Estela Matthew 350.1.13.10 ity [facility] 4.2.7.2.686 Kehinde as [phone] [facility] [address] 2020-07-26 2020-07-26 Outpatient Fay MATTHEW [facility] [id number] Univers 11:30:00 11:30:00 ESTELA cruz [facility] 2020-07-26 2020-07-26 Outpatient DARVIN SHEARER [facility] [id number] Univers 09:45:00 09:45:00 ity [facility] 2020-07-10 2020-07-10 Outpatient Fay DE LEON [facility] [id number] Univers 10:00:00 10:00:[address] [facility] 2020-06-25 2020-06-29 [facility] Tiffany Alvarado 1.2.840.1 [id number] Methodi 18:50:00 13:41:00 Encounter Gonzalo Watkins 44074.1.[address] Parmjit Gonzalez 3.430.2.7 Ho Kt Hannon .3.127015 l .8 2020-06-26 2020-06-26 Outpatient Fay DE LEON [facility] [id number] [facility] 10:30:00 10:30:00 NICKIE cruz [facility] 2020-06-25 2020-06-25 Office Nivia, 1.2.840.1 [id number] 48827 43038 Methodi 09:44:35 11:13:06 Visit Ray 37342.1.[address] 3.430.2.7 Hospit a .3.586014 l .8 2020-06-25 2020-06-25 Lab Nivia, 1.2.840.1 [id number] 26119 96050 Methodi 10:39:12 10:44:[address] 3.430.2.7 Hospit a .3.719770 l .8 2020-06-25 2020-06-25 Travel 1.2.840.1 1.2.288.425 3578 596177 Methodi 00:00:00 00:00:[address] 3.430.2.7 0.2.7.3.698 Ho madhuri .3.082453 084.8 l .8 2020-06-22 2020-06-22 Pre-Admiss Marilee Foster 1.2.840.1 [id number] Methodi 14:12:49 15:12:49 ion Justin 03862.1.[address] Testing 3.430.2.7 Hospit a .3.573326 l .8 2020-06-22 2020-06-22 Travel 1.2.840.1 1.2.174.176 3943 560646 Methodi 00:00:00 00:00:[address] 3.430.2.7 0.2.7.3.698 Ho spita .3.338740 084.8 l .8 2020-06-21 2020-06-21 Telephone Nivia, 1.2.840.2 [id number] 21 [id number] Methodi 00:00:00 00:00:[address] 3.430.2.7 Hospit a .3.938349 l .8 2020-06-18 2020-06-19 Emergency Rehna, 1.2.840.1 [id number] 2099 [id number] Methodi 19:55:00 04:34:00 Beau Kimberlyn 80499.1.[address] 3.430.2.7 Hospit a .3.171733 l .8 2020-06-18 2020-06-18 Travel 1.2.840.1 1.2.296.681 0842 066429 Methodi 00:00:00 00:00:[address] 3.430.2.7 0.2.7.3.698 Ho spita .3.895333 084.8 l .8 2020-06-13 2020-06-13 [facility] Darvin Daily 1.2.840.114 8 [id number] Univers 12:13:01 23:59:00 Encounter William Wick 350.1.13.1 0 ity of [facility] 4.2.7.2.686 [place]hinde as [phone] [facility] [address] 2020-06-13 2020-06-13 Ancillary Room, Emily-Occup Therapy Tub Hanna 1.2.840.114 [id number] Univers 15:41:48 15:48:57 Visit Estela Matthew 350.1.13.10 ity of [facility] 4.2.7.2.686 [place] as [phone] [facility] [address] 2020-06-13 2020-06-13 Outpatient R SHAUNA [facility] [id number] Univers 13:30:00 15:48:57 ESTELA cruz [facility] 2020-06-13 2020-06-13 Outpatient R [facility] [id number] Univers 12:30:00 12:30:00 ity [facility] 2020-06-11 2020-06-11 [facility] [id number] Univers 15:00:00 15:00:[address] [facility] 2020-06-11 2020-06-11 Outpatient R HALEY [facility] [id number] Univers 09:30:00 09:30:[address] [facility] 2020-06-06 2020-06-06 Orders Marilee Foster 1.2.840.1 [id number] 21 [id number] Methodi 00:00:00 00:00:00 Only Justin 39405.1.[address] 3.430.2.7 Hospit a .3.520586 l .8 2020-05-30 2020-05-30 Hospital Ernesto Verdugo 1.2.840.114 [id number] Univers 12:21:08 23:59:00 Encounter William Wick 350.1.13.1 0 ity of [facility] 4.2.7.2.686 [place] as [phone] [facility] [address] 2020-05-30 2020-05-30 Ancillary Room, Emily-Occup Therapy Tub Hanna 1.2.840.114 [id number] Univers 14:15:07 15:15:07 Visit Estela Matthew 350.1.13.10 ity of [facility] 4.2.7.2.686 [place] as [phone] [facility] [address] 2020-05-30 2020-05-30 [facility] [id number] 178 Univers 14:00:00 14:00:00 ESTELA cruz [facility] 2020-05-30 2020-05-30 [facility] [id number] 242 Univers 12:30:00 12:30:00 ERNESTO maria eugenia [facility] 2020-05-28 2020-05-28 Orders Doctor GAN 1.2.840.114 [id number] Univers 00:00:00 00:00:00 Only Unassigned, KEIKO 350.1.13.10 ity of [place] [facility] 4.2.7.2.686 Kehinde as [phone] [facility] [address] 2020-05-17 2020-05-17 Outpatient Mayito VERDUGO [facility] [id number] Univers 12:30:00 12:30:[address] [facility] 2020-05-16 2020-05-16 Emergency X SINGER [facility] ERT [id number] Univers 11:31:00 13:00:00 JOE cruz [facility] 2020-05-16 2020-05-16 Emergency [facility] 1.2.203.644 9562 1161 Univers 11:31:00 13:00:00 Joe Leach 350.1.13.10 i ty [place] [phone] [facility] [address] 2020-05-16 2020-05-16 Outpatient [facility] [id number] Univers 12:30:00 12:30:[address] [facility] 2020-05-15 2020-05-15 Office Marilee Foster 1.2.840.1 [id number] 21 [id number] Methodi 09:56:11 11:01:42 Visit Justin 84621.1.[address] 3.430.2.7 Hospit a .3.482939 l .8 2020-05-15 2020-05-15 Transition JuanyadiraJen 1.2.840.114 79 [id number] Univers 00:00:00 00:00:00 of Care Lesly Coleman 350.1.13.10 i ty of [place] [phone] [facility] [address] 2020-05-14 2020-05-14 Travel 1.2.840.1 1.2.420.314 1047 811349 Methodi 00:00:00 00:00:[address] 3.430.2.7 0.2.7.3.698 Ho spita .3.291318 084.8 l .8 2020-05-03 2020-05-12 Hospital Joann Mar 1.2.055.859 9055 0456 Univers 16:38:00 13:43:00 Encounter Papo Aden 350.1.13.10 [facility] 4.2.7.2.686 [place] [phone] [address] 2020-05-03 2020-05-03 [facility] [id number] Univers 00:00:00 00:00:[address] [facility] 2020-05-02 2020-05-02 Emergency Turner, 1.2.840.1 [id number] 2100 [id number] Methodi 14:29:00 18:04:00 Marshall Martini 48527.1.1 269 s t 3.430.2.7 Hospit a .3.742849 l .8 2020-05-02 2020-05-02 Outpatient Fay DE LEON [facility] [id number] Univers 14:00:00 14:00:[address] [facility] 2020-05-02 2020-05-02 Telephone Mary Huizar 1.2.840.1 [id number] Methodi 00:00:00 00:00:[address] 3.430.2.7 Hospit a .3.843153 l .8 2020-04-30 2020-04-30 Outpatient Fay DE LEON [facility] [id number] Univers 10:00:00 10:00:[address] [facility] 2020-04-27 2020-04-27 Travel 1.2.840.1 1.2.211.657 0539 377262 Methodi 00:00:00 00:00:[address] 3.430.2.7 0.2.7.3.698 Ho spita .3.888895 084.8 l .8 2020-04-26 2020-04-26 Office Mary Huizar 1.2.840.1 [id number] 21 [id number] Methodi 09:34:30 10:44:[address] 3.430.2.7 Hospit a .3.402568 l .8 2020-04-26 2020-04-26 Travel 1.2.840.1 1.2.781.466 7379 468690 Methodi 00:00:00 00:00:[address] 3.430.2.7 0.2.7.3.698 Ho spita .3.956926 084.8 l .8 2020-04-12 2020-04-12 Telephone Mary Huizar 1.2.840.1 [id number] Methodi 16:15:00 16:30:[address] 3.430.2.7 Hospit a .3.091190 l .8 2020-04-10 2020-04-10 Office [facility] 1.2.246.218 [id number] 9307 Univers 14:14:37 15:26:08 Visit Lindy Muñoz APPROVER 350.1.13.10 ity [facility] 4.2.7.2.686 Kehinde as MATERNAL [phone] [facility] ical & CHILD [address] [place] [address] 2020-04-10 2020-04-10 Outpatient R [facility] [id number] Univers 14:15:00 14:15:00 LINDY gage [facility] 2020-04-09 2020-04-09 Patient Darren, 1.2.840.1 [id number] Methodi 00:00:00 00:00:00 Outreach Shyanne 32887.1.[address] 3.430.2.7 Hospit a .3.746483 l .8 2020-04-04 2020-04-07 [facility] 1.2.840.1 67144 1210 [id number] Methodi 18:05:00 17:42:00 Encounter Jerson Maxwell 30482.1.[address] Freddy Ocasio 3.430.2.7 H ospita .3.572611 l .8 2020-04-06 2020-04-06 Telephone Mary Huizar 1.2.840.1 [id number] Methodi 00:00:00 00:00:[address] 3.430.2.7 Hospit a .3.039895 l .8 2020-03-30 2020-03-30 [facility] 1.2.840.1 [id number] 2 [id number] Methodi 09:20:00 23:59:[address] 3.430.2.7 Hospit a .3.158851 l .8 2020-03-30 2020-03-30 [facility] 1.2.840.1 [id number] Methodi 00:00:00 00:00:[address] 3.430.2.7 Hospit a .3.977877 l .8 2020-03-30 2020-03-30 Travel 1.2.840.1 1.2.729.023 2021 [id number] Methodi 00:00:00 00:00:[address] 3.430.2.7 0.2.7.3.698 Ho spita .3.572314 084.8 l .8 2020-03-27 2020-03-27 Travel 1.2.840.1 1.2.685.219 2649 [id number] Methodi 00:00:00 00:00:[address] 3.430.2.7 0.2.7.3.698 Ho spita .3.987187 084.8 l .8 2020-03-12 2020-03-15 [facility] 1.2.840.1 [id number] 2 [id number] Methodi 09:53:00 12:25:[address] 3.430.2.7 Hospit a .3.511701 l .8 2020-03-15 2020-03-15 Travel 1.2.840.1 1.2.172.610 0838 [id number] Methodi 00:00:00 00:00:[address] 3.430.2.7 0.2.7.3.698 Ho spita .3.898858 084.8 l .8 2020-03-14 2020-03-14 Orders Prince, 1.2.840.1 [id number] 1522 Methodi 00:00:00 00:00:00 Only Maria E Dotson 64170.1.[address] 3.430.2.7 Hospit a .3.918328 l .8 2020-03-12 2020-03-12 Orders Mary Huizar 1.2.840.1 [id number] 21 [id number] Methodi 00:00:00 00:00:[address] 3.430.2.7 Hospit a .3.885905 l .8 2020-03-08 2020-03-08 Telephone Mary Huizar 1.2.840.1 [id number] Methodi 00:00:00 00:00:[address] 3.430.2.7 Hospit a .3.109230 l .8 2020-02-13 2020-02-13 Telephone [facility] 1.2.840.114 [id number] Univers 00:00:00 00:00:00 April Man APPROVER 350.1.13.10 i ty of [facility] 4.2.7.2.686 Kehinde as MATERNAL [phone] Med ical & CHILD 107 [facility] 2020-01-18 2020-01-18 Transition Jen Feng 1.2.840.114 [id number] [id number] Univers 00:00:00 00:00:00 of Care Adair Coleman 350.1.13.10 ity [place] [phone] [facility] [address] 2020-01-16 2020-01-17 Emergency [facility] 1.2.373.593 4060 4959 Univers 22:16:00 00:53:00 Pamela Leach 350.1.13.10 ity [place] [phone] [facility] [address] 2020-01-16 2020-01-16 Emergency [facility] [id number] Univers 22:16:00 22:16:00 PAMELA ity of [facility] 2020-01-16 2020-01-16 Orders Doctor JORGITO 1.2.840.114 [id number] Univers 00:00:00 00:00:00 Only Unassigned, KEIKO 350.1.13.10 ity of [facility] 4.2.7.2.686 Kehinde as [phone] [address] 2019-12-16 2019-12-16 Outpatient Fay DE [facility] [id number] Univers 09:30:00 09:30:00 NICKIE ity of [facility] 2019-11-29 2019-11-29 Emergency [facility] 1.2.840.114 76 [id number] Univers 13:51:42 18:42:00 Brittany Leach 350.1.13.10 ity [place] [phone] [address] 2019-11-29 2019-11-29 Emergency X [facility] ERT [id number] Univers 13:51:42 18:42:00 FOLUSHO ity of [facility] 2019-11-29 2019-11-29 Telephone [facility] 1.2.840.114 [id number] Univers 00:00:00 00:00:00 John Leach 350.1.13.10 i ty [place] [facility] [phone] [place] [address] 2019-11-29 2019-11-29 Orders Doctor JORGITO 1.2.840.114 [id number] Univers 00:00:00 00:00:00 Only Unassigned, KEIKO 350.1.13.10 ity of [facility] 4.2.7.2.686 Kehinde as [phone] [address] 2019-10-24 2019-10-24 [facility] 1.2.840.114 [id number] Univers 14:33:37 23:59:00 Encounter Dae HEART'S 350.1.13.10 ity of [facility] [place].2.7.2.[place] [phone] [address] 2019-10-24 2019-10-24 Emergency [facility] JUANY [id number] 19:19:00 19:19:[address] [facility] 2019-10-24 2019-10-24 Emergency [facility] JUANY [id number] [address] 19:19:00 19:19:00 -[id number] [facility] 2019-10-24 2019-10-24 Outpatient R TONJA [facility] NUT [id number] Univers 00:00:00 00:00:00 DAE cruz o f [facility] 2019-10-11 2019-10-11 [facility] [id number] Univers 00:00:00 00:00:00 John Hany 350.1.13.[address] [facility] [phone] [place] dical [address] 2019-10-07 2019-10-07 [facility] [id number] Univers 11:00:00 11:00:[address] [facility] 2019-10-06 2019-10-06 [facility]ici [facility] 1.2.840.114 [id number] Univers 08:13:12 15:30:52 ne Visit John Leach 350.1.13.[address] [facility] [place]2.[place].2.[place] [phone] [place] dical [address] 2019-10-06 2019-10-06 Outpatient R MIKE [facility] [id number] Univers 15:00:00 15:00:00 JOHN cruz [facility] 2019-08-24 2019-08-24 Outpatient R MIKE [facility] [id number] Univers 11:15:00 11:15:00 JOHN cruz [facility] 2019-08-24 2019-08-24 Outpatient R NORAH [facility] [id number] Univers 11:00:00 11:00:[address] [facility] 2019-08-12 2019-08-12 Case [facility] 1.2.840.114 [id number] Univers 00:00:00 00:00:00 Management Daina Leach 350.1.13.10 ity of [place].2.[place] [phone] N[place] dic[address] 2019-08-12 2019-08-12 Telephone Adum, [facility] 1.2.349.011 [id number] Univers 00:00:00 00:00:00 Daina Leach 350.1.13.10 ity of [place] [phone] [address] 2019-08-10 2019-08-10 [facility] 1.2.840.114 [id number] Univers 14:12:35 15:35:54 Visit Daina Leach 350.1.13.10 ity of [place].2.[place] [phone] [address] 2019-08-10 2019-08-10 Outpatient R AD, [facility] [id number] Univers 14:00:00 14:00:00 DAINA ity of [facility] 2019-08-10 2019-08-10 Orders Doctor JORGITO 1.2.840.114 [id number] Univers 00:00:00 00:00:00 Only Unassigned, KEIKO 350.1.13.10 ity of [facility] 4.2.7.2.686 [place]hind[place] as [phone] [facility] [address] 2019-02-24 2019-02-24 [facility] 1.2.840.114 [id number] Univers 15:07:00 23:59:00 Encounter Jerson HEART'S 350.1.13.10 it[place] [phone] [facility] [address] 2019-02-07 2019-02-07 Transition Jen Flores 1.2.840.114 [id number] Univers 00:00:00 00:00:00 of Yeny Coleman 350.1.13.10 ity of [place].2.[place] [phone] [facility] [address] 2019-02-03 2019-02-04 Hospital Kris Rogers 1.2.840. 114 [id number] [facility] 14:37:11 18:43:00 Encounter Marilee Rascon 350.1.13.10 ity of [facility] 4.2.7.2.686 [place]hind[place] as [phone] [facility] [address] 2019-02-02 2019-02-02 Patient JORGITO Nieves 1.2.840.[id number] [place] [address] 00:00:00 00:00:00 Outreach Parker ADEN 350.1.13.10 ity of [facility] 4.2.7.2.686 [place] [phone] [place] [address] [place] 2018-12-07 2018-12-08 Inpatient EM Yara [facility] PSY [id number] [facility] 01:13:00 14:15:00 Jorgito Whelan [facility] 2018-09-14 2018-09-18 Inpatient STACEY Mae [facility] TEL [id number] [facility] 21:28:00 16:12:00 Apolonia 32 [facility] Results Test Description Test Time Test Comments Results Result Comments Source CARBAMAZEPINE (TEGRETOL) 2023-02-25 03:36:22 Test Item Value Reference Range Interpretation Comme nts CARBAMAZEPINE (TEGRETOL) (test 6.8 UG/ML 4.0-12.0 UNLESS OTHERWISE INDICATED, ALL code = 3006) TESTING PERFORM ED AT CLINICAL PATHOLOGY [facility], [place] [address] LABORATORY DIRE CTOR: Beata PEARSON EVAN NUMBER [id number] [place]. [id number] Hepatic function [id number] 06:00:00 Test Item Value Reference Range Interpretation Comments Protein, Total (test 6.9 See_Comment [Autom ated code = 2885-2) message] The system which generated this result transmitted reference range : 6.0 - 8.5 gm/dL . The reference range was not used to interpr et this result as normal/abnormal . Albumin (test code = 3.8 g/dL 3.5-5.0 78667-5) Total Bilirubin <0.2 0.1-1.2 (test code = 1974-2) Bilirubin, Direct 0.1 mg/dL 0.0-0.4 (test code = 1967-7) Alkaline Phosphatase 80 U/L 30-115 (test code = 6768-6) AST (test code = 47 U/L 5-40 H 1920-8) ALT (test code = 290 U/L 5-50 H 1742-6) LUIS MIGUEL (test code = 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 - LUIS MIGUEL) LITOOperator ID - LITOOperator ID - LITOOperator ID - LITOOperator ID - LITOOperator ID - LITOOperator ID - MONO Lab Interpretation Abnormal (test code = 58053-9) [facility] [id number] 06:00:00 Test Item Value Reference Range Interpretation Comments TOTAL PROTEIN (BEAKER) (test code = 6.9 gm/dL 6.0-8.5 770) ALBUMIN (BEAKER) (test code = 1145) 3.8 g/dL 3.5-5.0 BILIRUBIN TOTAL (BEAKER) (test code < mg/dL 0.1-1.2 = 377) BILIRUBIN DIRECT (BEAKER) (test 0.1 mg/dL 0.0-0.4 code = 706) ALKALINE PHOSPHATASE (BEAKER) (test 80 U/L 30-115 code = 346) AST (SGOT) (BEAKER) (test code = 47 U/L 5-40 H 353) ALT (SGPT) (BEAKER) (test code = 290 U/L 5-50 H 347) 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 - LITOOperator ID - LITOOperator ID - LITOOperator ID - LITOOperator ID - LITOOperator ID - LITOOperator ID - LITOBasic Metabolic [id number] 05:53:00 Test Item Value Reference Range Interpretation Comments Sodium (test code = 135 meq/L 506-620 4799-2) Potassium (test code 4.3 meq/L 3.6-5.5 = 2823-3) Chloride (test code = 103 meq/L 98-106 2075-0) CO2 (test code = 23 meq/L 20-29 8-9) BUN (test code = 6 mg/dL 10-26 L 3094-0) Creatinine (test code 0.59 mg/dL 0.50-1.20 = 2160-0) Glucose (test code = 101 mg/dL 70-110 2345-7) Calcium (test code = 9.8 mg/dL 8.5-10.5 05255-4) EGFR (test code = 119 mL/min/1.73 [place] [address]-9) m NOT ACCURATE CREATININE CLEARANCE IN PREDICTING GLOMERULAR FILTRATION RATE . ESTIMATED GFR I S NOT APPLICABLE FOR DIALYSIS PATIENTS. LUIS MIGUEL (test code = LUIS MIGUEL) 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 - LITOOperator ID - LITOOperator ID - LITOOperator ID - LITOOperator ID - LITOOperator ID - LITOOperator ID - LITOOperator ID - LITOOperator ID - LITOOperator ID - MONO Lab Interpretation Abnormal (test code = 22105-3) [facility] METABOLIC [id number] 05:53:00 Test Item Value Reference Range Interpretation Comments SODIUM (BEAKER) 135 meq/L 135-148 (test code = 381) POTASSIUM (BEAKER) 4.3 meq/L 3.6-5.5 (test code = 379) CHLORIDE (BEAKER) 103 meq/L 98-106 (test code = 382) CO2 (BEAKER) (test 23 meq/L 20-29 code = 355) BLOOD UREA NITROGEN 6 mg/dL 10-26 L (BEAKER) (test code = 354) CREATININE (BEAKER) 0.59 mg/dL 0.50-1.20 (test code = 358) GLUCOSE RANDOM 101 mg/dL 70-110 (BEAKER) (test code = 652) CALCIUM (BEAKER) 9.8 mg/dL 8.5-10.5 (test code = 697) EGFR (BEAKER) (test 119 mL/min/1.73 ESTIM ATED GFR IS code = 1092) sq m NOT ACCURATE CREATININE CLEARANCE IN PREDICTING GLOMERULAR FILTRATION RATE . ESTIMATED GFR I S NOT APPLICABLE FOR DIALYSIS PATIEN TS. 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 - LITOOperator ID - LITOOperator ID - LITOOperator ID - LITOOperator ID - LITOOperator ID - LITOOperator ID - LITOOperator ID - LITOOperator ID - LITOOperator ID - LITOPhenytoin level, [id number] 05:45:00 Test Item Value Reference Range Interpretation Comments Phenytoin (test code = 6.2 ug/mL 10.0-20.0 L 3968-5) LUIS MIGUEL (test code = LUIS MIGUEL) 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 - MONO Lab Interpretation (test Abnormal code = 24407-1) [facility] 05:45:00 Test Item Value Reference Range Interpretation Comments Magnesium (test code = 1.8 mg/dL 1.5-3.0 57960-6) LUIS MIGUEL (test code = LUIS MIGUEL) 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 - LITOOperator ID - LITOOperator ID - LITOOperator ID - MONO Lab Interpretation (test Normal code = 92149-4) [facility] 05:45:00 Test Item Value Reference Range Interpretation Comments MAGNESIUM (BEAKER) (test code = 1.8 mg/dL 1.5-3.0 627) 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 - LITOOperator ID - LITOOperator ID - LITOOperator ID - MONO PHENYTOIN LEVEL, [id number] 05:45:00 Test Item Value Reference Range Interpretation Comments PHENYTOIN (DILANTIN) (BEAKER) (test 6.2 ug/mL 10.0-20.0 L code = 605) 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 - [id number] 05:41:00 Test Item Value Reference Range Interpretation Comments Phosphorus (test code = 3.8 mg/dL 2.5-4.5 2777-1) LUIS MIGUEL (test code = LUIS MIGUEL) 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 - MONO Lab Interpretation (test Normal code = 59075-5) [facility] 05:41:00 Test Item Value Reference Range Interpretation Comments PHOSPHORUS (BEAKER) (test code = 3.8 mg/dL 2.5-4.5 604) 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 - LITOCBC with platelet count + automated [id number] 05:39:00 Test Item Value Reference Range Interpretation Comments WBC (test code = 6690-2) 7.1 See_Comment [A utomated message] The system [employer] generated this result transmitted ref erence range: 4.0 - 10 .0 K/L. The refe rence range was not u sed to interpret this result as normal/abnor mal. RBC (test code = 789-8) 4.24 See_Comment [Au tomated message] The system [employer] generated this result transmitted ref erence range: 4.00 - 5 .00 M/L. The refe rence range was not u sed to interpret this result as normal/abnor mal. MCHC (test code = 786-4) 32.0 See_Comment L [A utomated message] The system [employer] generated this result transmitted ref erence range: 32.0 - 3 6.0 GM/DL. The refe rence range was not u sed to interpret this result as normal/abnor mal. Hematocrit (test code = 33.7 % 36.0-46.0 L 4544-3) MCV (test code = 787-2) 79.5 fL 82.0-99.0 L MCH (test code = 785-6) 25.5 pg 27.0-33.0 L RDW (test code = 788-0) 17.0 % 12.0-15.0 H Platelets (test code = 243 See_Comment [Aut omated message] 777-3) The system [employer] generated this result transmitted ref erence range: 150 - 43 0 K/CU MM. The referen ce range was not u sed to interpret this result as normal/abnor mal. MPV (test code = 9.3 fL 6.0-11.5 27718-9) nRBC (test code = 413) 0 See_Comment [Aut omated message] The system [employer] generated this result transmitted ref erence range: 0 - 0 /1 00 WBC. The refere nce range was not u sed to interpret this result as normal/abnor mal. % Neutros (test code = 58 % 429) % Lymphs (test code = 31 % 430) % Monos (test code = 8 % 431) % Eos (test code = 432) 3 % % Baso (test code = 437) 1 % # Neutros (test code = 4.09 See_Comment [Aut omated message] 670) The system [employer] generated this result transmitted ref erence range: 1.80 - 8 .00 K/L. The refe rence range was not u sed to interpret this result as normal/abnor mal. # Lymphs (test code = 2.18 See_Comment [Auto mated message] 414) The system [employer] generated this result transmitted ref erence range: 1.48 - 4 .50 K/L. The refe rence range was not u sed to interpret this result as normal/abnor mal. # Monos (test code = 0.55 See_Comment [Autom ated message] 415) The system [employer] generated this result transmitted ref erence range: 0.00 - 1 .30 K/L. The refe rence range was not u sed to interpret this result as normal/abnor mal. # Eos (test code = 416) 0.18 See_Comment [Au tomated message] The system [employer] generated this result transmitted ref erence range: 0.00 - 0 .50 K/L. The refe rence range was not u sed to interpret this result as normal/abnor mal. # Baso (test code = 417) 0.05 See_Comment [A utomated message] The system [employer] generated this result transmitted ref erence range: 0.00 - 0 .20 K/L. The refe rence range was not u sed to interpret this result as normal/abnor mal. Immature 0 % 0-0 Granulocytes-Relative (test code = 2801) Lab Interpretation (test Abnormal code = 74350-0) [facility] W/PLT COUNT & AUTO [id number] 05:39:00 Test Item Value Reference Range Interpretation Comments WHITE BLOOD CELL COUNT (BEAKER) 7.1 K/ L 4.0-10.0 (test code = 775) RED BLOOD CELL COUNT (BEAKER) 4.24 M/ L 4.00-5.00 (test code = 761) HEMOGLOBIN (BEAKER) (test code = 10.8 GM/DL 12.0-15.5 L 410) HEMATOCRIT (BEAKER) (test code = 33.7 % 36.0-46.0 L 411) MEAN CORPUSCULAR VOLUME (BEAKER) 79.5 fL 82.0-99.0 L (test code = 753) MEAN CORPUSCULAR HEMOGLOBIN 25.5 pg 27.0-33.0 L (BEAKER) (test code = 751) MEAN CORPUSCULAR HEMOGLOBIN CONC 32.0 GM/DL 32.0-36.0 (BEAKER) (test code = 752) RED CELL DISTRIBUTION WIDTH 17.0 % 12.0-15.0 H (BEAKER) (test code = 412) PLATELET COUNT (BEAKER) (test 243 K/CU MM 150-430 code = 756) MEAN PLATELET VOLUME (BEAKER) 9.3 fL 6.0-11.5 (test code = 754) NUCLEATED RED BLOOD CELLS 0 /100 WBC 0-0 (BEAKER) (test code = 413) NEUTROPHILS RELATIVE PERCENT 58 % (BEAKER) (test code = 429) LYMPHOCYTES RELATIVE PERCENT 31 % (BEAKER) (test code = 430) MONOCYTES RELATIVE PERCENT 8 % (BEAKER) (test code = 431) EOSINOPHILS RELATIVE PERCENT 3 % (BEAKER) (test code = 432) BASOPHILS RELATIVE PERCENT 1 % (BEAKER) (test code = 437) NEUTROPHILS ABSOLUTE COUNT 4.09 K/ L 1.80-8.00 (BEAKER) (test code = 670) LYMPHOCYTES ABSOLUTE COUNT 2.18 K/ L 1.48-4.50 (BEAKER) (test code = 414) MONOCYTES ABSOLUTE COUNT (BEAKER) 0.55 K/ L 0.00-1.30 (test code = 415) EOSINOPHILS ABSOLUTE COUNT 0.18 K/ L 0.00-0.50 (BEAKER) (test code = 416) BASOPHILS ABSOLUTE COUNT (BEAKER) 0.05 K/ L 0.00-0.20 (test code = 417) IMMATURE GRANULOCYTES-RELATIVE 0 % 0-0 PERCENT (BEAKER) (test code = 2801) Prothrombin time/[id number] 05:28:00 Test Item Value Reference Interpretation Comments Range Protime (test code = 10.0 See_Comment Final 5902-2) Information (Auto Output) [Automated message] The system which generated this result transmitted reference range : 9.3 - 12.0 seconds. The reference range was not used to interpret this result as normal/abnormal . INR (test code = 0.90 See_Comment Final 6301-6) Information (Auto Output) [Automated message] The system which generated this result transmitted reference range : <=5.90. The reference range was not used to interpret this result as normal/abnormal . LUIS MIGUEL (test code = RECOMMENDED LUIS MIGUEL) COUMADIN/WARFARIN INR THERAPY RANGESSTANDARD DOSE: 2.0 - 3.0 Includes: PROPHYLAXIS for venous thrombosis, systemic embolization; TREATMENT for venous thrombosis and/or pulmonary embolus.HIGH RISK: Target INR is 2.5-3.5 for patients with mechanical heart valves. Lab Interpretation Normal (test code = 03783-0) [facility]/[id number] 05:28:00 Test Item Value Reference Range Interpretation Comments PROTIME (BEAKER) 10.0 seconds 9.3-12.0 Final Infor mation (test code = 759) (Auto Outp ut) INR (BEAKER) (test 0.90 See_Comment Final Inf ormation code = 370) (Auto Output) [Automated mess age] The system [employer] generated this result transmitted ref erence range: <=5.90. The reference range was not used to int erpret this result as normal/abnormal . RECOMMENDED COUMADIN/WARFARIN INR THERAPY RANGESSTANDARD DOSE: 2.0 - 3.0 Includes: PROPHYLAXIS for venous thrombosis, systemic embolization; TREATMENT for venous thrombosis and/or pulmonary embolus.HIGH RISK: Target INR is 2.5-3.5 for patients with mechanical heart valves.Levetiracetam [id number] 10:46:00 Test Item Value Reference Interpretation Comments Range Levetiracetam (test <2.0 mcg/mL L Referen ce Range: code = 0726665) 12.0-46.0 To xic level is not we ll established. Interpretation should include a clinical evalua tion. For additional information, pl ease refer tohttp://educat ion.Q [address] .Arbovax/ faq/PPK067(This link is being provid ed forinformationa l/edu cational purpos es only.) This devin t was developed and i ts analytical performance characteristics have been determined by [employer]. It has not been cleared or appr anuel by theFDA. This assay has been validated pursu ant to the CLIA regulations and is used for clinic al purposes. LUIS MIGUEL (test code = Performing Lab LUIS MIGUEL) *JOSETTE [employer] [facility], [address] [place] [id number] Christopher Amaya MD Lab Interpretation Abnormal (test code = 88525-2) [facility] W/[facility]T [facility] & AUTO [id number] 06:14:00 Test Item Value Reference Range Interpretation Comments WHITE BLOOD CELL COUNT (BEAKER) 7.0 K/ L 4.0-10.0 (test code = 775) RED BLOOD CELL COUNT (BEAKER) 4.31 M/ L 4.00-5.00 (test code = 761) HEMOGLOBIN (BEAKER) (test code = 10.8 GM/DL 12.0-15.5 L 410) HEMATOCRIT (BEAKER) (test code = 34.4 % 36.0-46.0 L 411) MEAN CORPUSCULAR VOLUME (BEAKER) 79.8 fL 82.0-99.0 L (test code = 753) MEAN CORPUSCULAR HEMOGLOBIN 25.1 pg 27.0-33.0 L (BEAKER) (test code = 751) MEAN CORPUSCULAR HEMOGLOBIN CONC 31.4 GM/DL 32.0-36.0 L (BEAKER) (test code = 752) RED CELL DISTRIBUTION WIDTH 17.2 % 12.0-15.0 H (BEAKER) (test code = 412) PLATELET COUNT (BEAKER) (test 239 K/CU MM 150-430 code = 756) MEAN PLATELET VOLUME (BEAKER) 9.3 fL 6.0-11.5 (test code = 754) NUCLEATED RED BLOOD CELLS 0 /100 WBC 0-0 (BEAKER) (test code = 413) NEUTROPHILS RELATIVE PERCENT 57 % (BEAKER) (test code = 429) LYMPHOCYTES RELATIVE PERCENT 28 % (BEAKER) (test code = 430) MONOCYTES RELATIVE PERCENT 10 % (BEAKER) (test code = 431) EOSINOPHILS RELATIVE PERCENT 4 % (BEAKER) (test code = 432) BASOPHILS RELATIVE PERCENT 1 % (BEAKER) (test code = 437) NEUTROPHILS ABSOLUTE COUNT 3.99 K/ L 1.80-8.00 (BEAKER) (test code = 670) LYMPHOCYTES ABSOLUTE COUNT 1.97 K/ L 1.48-4.50 (BEAKER) (test code = 414) MONOCYTES ABSOLUTE COUNT (BEAKER) 0.68 K/ L 0.00-1.30 (test code = 415) EOSINOPHILS ABSOLUTE COUNT 0.27 K/ L 0.00-0.50 (BEAKER) (test code = 416) BASOPHILS ABSOLUTE COUNT (BEAKER) 0.05 K/ L 0.00-0.20 (test code = 417) IMMATURE GRANULOCYTES-RELATIVE 0 % 0-0 PERCENT (BEAKER) (test code = 2801) HEPATIC FUNCTION [id number] 06:11:00 Test Item Value Reference Range Interpretation Comments TOTAL PROTEIN (BEAKER) (test code = 7.2 gm/dL 6.0-8.5 770) ALBUMIN (BEAKER) (test code = 1145) 3.9 g/dL 3.5-5.0 BILIRUBIN TOTAL (BEAKER) (test code 0.2 mg/dL 0.1-1.2 = 377) BILIRUBIN DIRECT (BEAKER) (test 0.1 mg/dL 0.0-0.4 code = 706) ALKALINE PHOSPHATASE (BEAKER) (test 89 U/L 30-115 code = 346) AST (SGOT) (BEAKER) (test code = 63 U/L 5-40 H 353) ALT (SGPT) (BEAKER) (test code = 416 U/L 5-50 H 347) 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 - [id number] ID - [id number] ID - [id number] ID - [id number] - [id number] ID - [id number] ID - [id number] PHENYTOIN LEVEL, [id number] 06:11:00 Test Item Value Reference Range Interpretation Comments PHENYTOIN (DILANTIN) (BEAKER) (test 9.0 ug/mL 10.0-20.0 L code = 605) 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 - [id number] 06:05:00 Test Item Value Reference Range Interpretation Comments MAGNESIUM (BEAKER) (test code = 1.9 mg/dL 1.5-3.0 627) 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 - [id number] ID - [id number] ID - [id number] ID - uxfwjp467PURQS METABOLIC [id number] 06:03:00 Test Item Value Reference Range Interpretation Comments SODIUM (BEAKER) 137 meq/L 135-148 (test code = 381) POTASSIUM (BEAKER) 4.0 meq/L 3.6-5.5 (test code = 379) CHLORIDE (BEAKER) 103 meq/L 98-106 (test code = 382) CO2 (BEAKER) (test 24 meq/L 20-29 code = 355) BLOOD UREA NITROGEN 6 mg/dL 10-26 L (BEAKER) (test code = 354) CREATININE (BEAKER) 0.60 mg/dL 0.50-1.20 (test code = 358) GLUCOSE RANDOM 101 mg/dL 70-110 (BEAKER) (test code = 652) CALCIUM (BEAKER) 9.8 mg/dL 8.5-10.5 (test code = 697) EGFR (BEAKER) (test 117 mL/min/1.73 ESTIM ATED GFR IS code = 1092) sq m NOT ACCURATE CREATININE CLEARANCE IN PREDICTING GLOMERULAR FILTRATION RATE . ESTIMATED GFR I S NOT APPLICABLE FOR DIALYSIS PATIEN TS. 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 - [id number] ID - [id number] ID - [id number] ID - [id number] - aofizw672Ngcafmqx ID - [id number] ID - [id number] ID - [id number] ID - [id number] ID - [id number] 06:01:00 Test Item Value Reference Range Interpretation Comments PHOSPHORUS (BEAKER) (test code = 4.2 mg/dL 2.5-4.5 604) 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 - [id number] TIME/[id number] 06:00:00 Test Item Value Reference Range Interpretation Comments PROTIME (BEAKER) 9.8 seconds 9.3-12.0 Final Infor mation (Auto (test code = 759) Output) INR (BEAKER) (test 0.88 See_Comment Final Inf ormation (Auto code = 370) Output) [Automa vandana message] The sy stem which generated this result transmit vandana reference range : <=5.90. The ref erence range was not u sed to interpret this result as normal/abnor mal. RECOMMENDED COUMADIN/WARFARIN INR THERAPY RANGESSTANDARD DOSE: 2.0 - 3.0 Includes: PROPHYLAXIS for venous thrombosis, systemic embolization; TREATMENT for venous thrombosis and/or pulmonary embolus.HIGH RISK: Target INR is 2.5-3.5 for patients with mechanical heart valves.PHENYTOIN LEVEL, [id number] 05:29:00 Test Item Value Reference Range Interpretation Comments PHENYTOIN (DILANTIN) (BEAKER) 14.2 ug/mL 10.0-20.0 (test code = 605) 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 - LITOPROTHROMBIN TIME/[id number] 05:26:00 Test Item Value Reference Range Interpretation Comments PROTIME (BEAKER) 9.9 seconds 9.3-12.0 Final Infor mation (Auto (test code = 759) Output) INR (BEAKER) (test 0.89 See_Comment Final Inf ormation (Auto code = 370) Output) [Automa vandana message] The sy stem which generated this result transmit vandana reference range : <=5.90. The ref erence range was not u sed to interpret this result as normal/abnor mal. RECOMMENDED COUMADIN/WARFARIN INR THERAPY RANGESSTANDARD DOSE: 2.0 - 3.0 Includes: PROPHYLAXIS for venous thrombosis, systemic embolization; TREATMENT for venous thrombosis and/or pulmonary embolus.HIGH RISK: Target INR is 2.5-3.5 for patients with mechanical heart valves.BASIC METABOLIC [id number] 05:26:00 Test Item Value Reference Range Interpretation Comments SODIUM (BEAKER) 138 meq/L 135-148 (test code = 381) POTASSIUM (BEAKER) 4.1 meq/L 3.6-5.5 (test code = 379) CHLORIDE (BEAKER) 102 meq/L 98-106 (test code = 382) CO2 (BEAKER) (test 25 meq/L 20-29 code = 355) BLOOD UREA NITROGEN 6 mg/dL 10-26 L (BEAKER) (test code = 354) CREATININE (BEAKER) 0.61 mg/dL 0.50-1.20 (test code = 358) GLUCOSE RANDOM 107 mg/dL 70-110 (BEAKER) (test code = 652) CALCIUM (BEAKER) 9.8 mg/dL 8.5-10.5 (test code = 697) EGFR (BEAKER) (test 114 mL/min/1.73 ESTIM ATED GFR IS code = 1092) sq m NOT ACCURATE CREATININE CLEARANCE IN PREDICTING GLOMERULAR FILTRATION RATE . ESTIMATED GFR I S NOT APPLICABLE FOR DIALYSIS PATIEN TS. 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 - LITOOperator ID - LITOOperator ID - LITOOperator ID - LITOOperator ID - LITOOperator ID - LITOOperator ID - LITOOperator ID - LITOOperator ID - LITOOperator ID - LITOHEPATIC FUNCTION [id number] 05:26:00 Test Item Value Reference Range Interpretation Comments TOTAL PROTEIN (BEAKER) (test code = 6.6 gm/dL 6.0-8.5 770) ALBUMIN (BEAKER) (test code = 1145) 3.7 g/dL 3.5-5.0 BILIRUBIN TOTAL (BEAKER) (test code 0.3 mg/dL 0.1-1.2 = 377) BILIRUBIN DIRECT (BEAKER) (test 0.2 mg/dL 0.0-0.4 code = 706) ALKALINE PHOSPHATASE (BEAKER) (test 90 U/L 30-115 code = 346) AST (SGOT) (BEAKER) (test code = 96 U/L 5-40 H 353) ALT (SGPT) (BEAKER) (test code = 549 U/L 5-50 H 347) 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 - LITOOperator ID - LITOOperator ID - LITOOperator ID - LITOOperator ID - LITOOperator ID - LITOOperator ID - [id number] 05:23:00 Test Item Value Reference Range Interpretation Comments MAGNESIUM (BEAKER) (test code = 1.7 mg/dL 1.5-3.0 627) 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 - LITOOperator ID - LITOOperator ID - LITOOperator ID - MONO [id number] 05:20:00 Test Item Value Reference Range Interpretation Comments PHOSPHORUS (BEAKER) (test code = 5.3 mg/dL 2.5-4.5 H 604) 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 - LITOCBC W/PLT COUNT & AUTO [id number] 05:19:00 Test Item Value Reference Range Interpretation Comments WHITE BLOOD CELL COUNT (BEAKER) 6.8 K/ L 4.0-10.0 (test code = 775) RED BLOOD CELL COUNT (BEAKER) 4.26 M/ L 4.00-5.00 (test code = 761) HEMOGLOBIN (BEAKER) (test code = 10.8 GM/DL 12.0-15.5 L 410) HEMATOCRIT (BEAKER) (test code = 33.8 % 36.0-46.0 L 411) MEAN CORPUSCULAR VOLUME (BEAKER) 79.3 fL 82.0-99.0 L (test code = 753) MEAN CORPUSCULAR HEMOGLOBIN 25.4 pg 27.0-33.0 L (BEAKER) (test code = 751) MEAN CORPUSCULAR HEMOGLOBIN CONC 32.0 GM/DL 32.0-36.0 (BEAKER) (test code = 752) RED CELL DISTRIBUTION WIDTH 17.1 % 12.0-15.0 H (BEAKER) (test code = 412) PLATELET COUNT (BEAKER) (test 230 K/CU MM 150-430 code = 756) MEAN PLATELET VOLUME (BEAKER) 9.9 fL 6.0-11.5 (test code = 754) NUCLEATED RED BLOOD CELLS 0 /100 WBC 0-0 (BEAKER) (test code = 413) NEUTROPHILS RELATIVE PERCENT 51 % (BEAKER) (test code = 429) LYMPHOCYTES RELATIVE PERCENT 35 % (BEAKER) (test code = 430) MONOCYTES RELATIVE PERCENT 10 % (BEAKER) (test code = 431) EOSINOPHILS RELATIVE PERCENT 4 % (BEAKER) (test code = 432) BASOPHILS RELATIVE PERCENT 1 % (BEAKER) (test code = 437) NEUTROPHILS ABSOLUTE COUNT 3.45 K/ L 1.80-8.00 (BEAKER) (test code = 670) LYMPHOCYTES ABSOLUTE COUNT 2.35 K/ L 1.48-4.50 (BEAKER) (test code = 414) MONOCYTES ABSOLUTE COUNT (BEAKER) 0.64 K/ L 0.00-1.30 (test code = 415) EOSINOPHILS ABSOLUTE COUNT 0.28 K/ L 0.00-0.50 (BEAKER) (test code = 416) BASOPHILS ABSOLUTE COUNT (BEAKER) 0.04 K/ L 0.00-0.20 (test code = 417) IMMATURE GRANULOCYTES-RELATIVE 0 % 0-0 PERCENT (BEAKER) (test code = 2801) PHENYTOIN LEVEL, [id number] 05:52:00 Test Item Value Reference Range Interpretation Comments PHENYTOIN (DILANTIN) (BEAKER) 19.4 ug/mL 10.0-20.0 (test code = 605) 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 - LITOHEPATIC FUNCTION [id number] 05:46:00 Test Item Value Reference Range Interpretation Comments TOTAL PROTEIN (BEAKER) 6.5 gm/dL 6.0-8.5 Speci men slightly (test code = 770) hemolyzed ALBUMIN (BEAKER) (test 3.5 g/dL 3.5-5.0 Speci men slightly code = 1145) hemolyzed BILIRUBIN TOTAL 0.3 mg/dL 0.1-1.2 Specimen sli ghtly (BEAKER) (test code = hemoly zed 377) BILIRUBIN DIRECT 0.1 mg/dL 0.0-0.4 Specimen sl ightly (BEAKER) (test code = hemoly zed 706) ALKALINE PHOSPHATASE 97 U/L 30-115 (BEAKER) (test code = 346) AST (SGOT) (BEAKER) 190 U/L 5-40 H Specimen slightly (test code = 353) hemolyzed ALT (SGPT) (BEAKER) 807 U/L 5-50 H Specimen slightly (test code = 347) hemolyzed 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 - LITOOperator ID - LITOOperator ID - LITOOperator ID - LITOOperator ID - LITOOperator ID - LITOOperator ID - LITOBASIC METABOLIC [id number] 05:46:00 Test Item Value Reference Range Interpretation Comments SODIUM (BEAKER) 139 meq/L 135-148 (test code = 381) POTASSIUM (BEAKER) 4.4 meq/L 3.6-5.5 Specimen slightly (test code = 379) hemolyzed CHLORIDE (BEAKER) 103 meq/L 98-106 (test code = 382) CO2 (BEAKER) (test 22 meq/L 20-29 code = 355) BLOOD UREA NITROGEN 5 mg/dL 10-26 L (BEAKER) (test code = 354) CREATININE (BEAKER) 0.54 mg/dL 0.50-1.20 Specimen slightly (test code = 358) hemolyzed GLUCOSE RANDOM 91 mg/dL 70-110 (BEAKER) (test code = 652) CALCIUM (BEAKER) 9.3 mg/dL 8.5-10.5 (test code = 697) EGFR (BEAKER) (test 132 mL/min/1.73 ESTIM ATED GFR IS code = 1092) sq m NOT ACCURATE CREATININE CLEARANCE IN PREDICTING GLOMERULAR FILTRATION RATE . ESTIMATED GFR I S NOT APPLICABLE FOR DIALYSIS PATIEN TS. 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 - LITOOperator ID - LITOOperator ID - LITOOperator ID - LITOOperator ID - LITOOperator ID - LITOOperator ID - LITOOperator ID - LITOOperator ID - LITOOperator ID - LITOPROTHROMBIN TIME/[id number] 05:45:00 Test Item Value Reference Range Interpretation Comments PROTIME (BEAKER) 10.3 seconds 9.3-12.0 Final Infor mation (test code = 759) (Auto Outp ut) INR (BEAKER) (test 0.92 See_Comment Final Inf ormation code = 370) (Auto Output) [Automated mess age] The system [employer] generated this result transmitted ref erence range: <=5.90. The reference range was not used to int erpret this result as normal/abnormal . RECOMMENDED COUMADIN/WARFARIN INR THERAPY RANGESSTANDARD DOSE: 2.0 - 3.0 Includes: PROPHYLAXIS for venous thrombosis, systemic embolization; TREATMENT for venous thrombosis and/or pulmonary embolus.HIGH RISK: Target INR is 2.5-3.5 for patients with mechanical heart valves.[id number] 05:44:00 Test Item Value Reference Range Interpretation Comments MAGNESIUM (BEAKER) 1.8 mg/dL 1.5-3.0 Specimen slightly (test code = 627) hemolyzed 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 - LITOOperator ID - LITOOperator ID - LITOOperator ID - MONO [id number] 05:40:00 Test Item Value Reference Range Interpretation Comments PHOSPHORUS (BEAKER) 4.2 mg/dL 2.5-4.5 Specimen slightly (test code = 604) hemolyzed 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 - LITOCBC W/PLT COUNT & AUTO [id number] 05:26:00 Test Item Value Reference Range Interpretation Comments WHITE BLOOD CELL COUNT (BEAKER) 6.1 K/ L 4.0-10.0 (test code = 775) RED BLOOD CELL COUNT (BEAKER) 4.04 M/ L 4.00-5.00 (test code = 761) HEMOGLOBIN (BEAKER) (test code = 10.1 GM/DL 12.0-15.5 L 410) HEMATOCRIT (BEAKER) (test code = 32.6 % 36.0-46.0 L 411) MEAN CORPUSCULAR VOLUME (BEAKER) 80.7 fL 82.0-99.0 L (test code = 753) MEAN CORPUSCULAR HEMOGLOBIN 25.0 pg 27.0-33.0 L (BEAKER) (test code = 751) MEAN CORPUSCULAR HEMOGLOBIN CONC 31.0 GM/DL 32.0-36.0 L (BEAKER) (test code = 752) RED CELL DISTRIBUTION WIDTH 17.0 % 12.0-15.0 H (BEAKER) (test code = 412) PLATELET COUNT (BEAKER) (test 198 K/CU MM 150-430 code = 756) MEAN PLATELET VOLUME (BEAKER) 9.8 fL 6.0-11.5 (test code = 754) NUCLEATED RED BLOOD CELLS 0 /100 WBC 0-0 (BEAKER) (test code = 413) NEUTROPHILS RELATIVE PERCENT 50 % (BEAKER) (test code = 429) LYMPHOCYTES RELATIVE PERCENT 33 % (BEAKER) (test code = 430) MONOCYTES RELATIVE PERCENT 11 % (BEAKER) (test code = 431) EOSINOPHILS RELATIVE PERCENT 5 % (BEAKER) (test code = 432) BASOPHILS RELATIVE PERCENT 1 % (BEAKER) (test code = 437) NEUTROPHILS ABSOLUTE COUNT 3.01 K/ L 1.80-8.00 (BEAKER) (test code = 670) LYMPHOCYTES ABSOLUTE COUNT 2.00 K/ L 1.48-4.50 (BEAKER) (test code = 414) MONOCYTES ABSOLUTE COUNT (BEAKER) 0.66 K/ L 0.00-1.30 (test code = 415) EOSINOPHILS ABSOLUTE COUNT 0.32 K/ L 0.00-0.50 (BEAKER) (test code = 416) BASOPHILS ABSOLUTE COUNT (BEAKER) 0.04 K/ L 0.00-0.20 (test code = 417) IMMATURE GRANULOCYTES-RELATIVE 0 % 0-0 PERCENT (BEAKER) (test code = 2801) Comprehensive metabolic [id number] 22:03:00 Test Item Value Reference Range Interpretation Comments Protein, Total (test 6.4 See_Comment [Autom ated code = 2885-2) message] The system which generated this result transmit vandana reference range : 6.0 - 8.5 gm/dL . The reference range was not u sed to interpret th is result as normal/abnormal . Albumin (test code = 3.7 g/dL 3.5-5.0 04882-1) Alkaline Phosphatase 86 U/L 30-115 (test code = 6768-6) Total Bilirubin (test 0.3 mg/dL 0.1-1.2 code = 1975-2) Sodium (test code = 139 meq/L 032-690 8693-2) Potassium (test code 4.1 meq/L 3.6-5.5 = 2823-3) Chloride (test code = 103 meq/L 98-106 2075-0) CO2 (test code = 26 meq/L 20-29 2028-9) BUN (test code = 4 mg/dL 10-26 L 3094-0) Creatinine (test code 0.62 mg/dL 0.50-1.20 = 2160-0) Glucose (test code = 104 mg/dL 70-110 2345-7) Calcium (test code = 9.5 mg/dL 8.5-10.5 64738-1) AST (test code = 232 U/L 5-40 H 1920-8) ALT (test code = 879 U/L 5-50 H 1742-6) EGFR (test code = 112 mL/min/1.73 [place] [address]-7) NOT ACCURATE CREATININE CLEARANCE IN PREDICTING GLOMERULAR FILTRATION RATE . ESTIMATED GFR I S NOT APPLICABLE FOR DIALYSIS PATIEN TS. LUIS MIGUEL (test code = LUIS MIGUEL) 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 - [id number] r ID - [id number] r ID - [id number] r ID - [id number] r ID - [id number] r ID - [id number] r ID - [id number] r ID - [id number] r ID - [id number] r ID - [id number] r ID - [id number] r ID - [id number] r ID - [id number] r ID - [id number] r ID - [id number] r ID - [id number] r ID - [id number] r ID - [id number] r ID - [id number] Lab Interpretation Abnormal (test code = 39295-2) [facility] [id number] 22:03:00 Test Item Value Reference Range Interpretation Comments TOTAL PROTEIN 6.4 gm/dL 6.0-8.5 (BEAKER) (test code = 770) ALBUMIN (BEAKER) 3.7 g/dL 3.5-5.0 (test code = 1145) ALKALINE PHOSPHATASE 86 U/L 30-115 (BEAKER) (test code = 346) BILIRUBIN TOTAL 0.3 mg/dL 0.1-1.2 (BEAKER) (test code = 377) SODIUM (BEAKER) (test 139 meq/L 135-148 code = 381) POTASSIUM (BEAKER) 4.1 meq/L 3.6-5.5 (test code = 379) CHLORIDE (BEAKER) 103 meq/L 98-106 (test code = 382) CO2 (BEAKER) (test 26 meq/L 20-29 code = 355) BLOOD UREA NITROGEN 4 mg/dL 10-26 L (BEAKER) (test code = 354) CREATININE (BEAKER) 0.62 mg/dL 0.50-1.20 (test code = 358) GLUCOSE RANDOM 104 mg/dL 70-110 (BEAKER) (test code = 652) CALCIUM (BEAKER) 9.5 mg/dL 8.5-10.5 (test code = 697) AST (SGOT) (BEAKER) 232 U/L 5-40 H (test code = 353) ALT (SGPT) (BEAKER) 879 U/L 5-50 H (test code = 347) EGFR (BEAKER) (test 112 ESTIMATE D GFR IS code = 1092) mL/min/1.73 sq NOT ACCURA TE m CREATININE CLEARANCE IN PREDICTING GLOMERULAR FILTRATION RATE . ESTIMATED GFR I S NOT APPLICABLE FOR DIALYSIS PATIEN TS. 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 - [id number] ID - [id number] ID - [id number] ID - [id number] ID - [id number] ID - [id number] ID - [id number] ID - [id number] ID - [id number] ID - [id number] ID - [id number] ID - [id number] ID - [id number] ID - [id number] ID - [id number] ID - [id number] ID - [id number] ID - [id number] ID - [id number] W/PLT COUNT & AUTO [id number] 21:50:00 Test Item Value Reference Range Interpretation Comments WHITE BLOOD CELL COUNT (BEAKER) 6.7 K/ L 4.0-10.0 (test code = 775) RED BLOOD CELL COUNT (BEAKER) 4.05 M/ L 4.00-5.00 (test code = 761) HEMOGLOBIN (BEAKER) (test code = 10.3 GM/DL 12.0-15.5 L 410) HEMATOCRIT (BEAKER) (test code = 32.4 % 36.0-46.0 L 411) MEAN CORPUSCULAR VOLUME (BEAKER) 80.0 fL 82.0-99.0 L (test code = 753) MEAN CORPUSCULAR HEMOGLOBIN 25.4 pg 27.0-33.0 L (BEAKER) (test code = 751) MEAN CORPUSCULAR HEMOGLOBIN CONC 31.8 GM/DL 32.0-36.0 L (BEAKER) (test code = 752) RED CELL DISTRIBUTION WIDTH 17.0 % 12.0-15.0 H (BEAKER) (test code = 412) PLATELET COUNT (BEAKER) (test 212 K/CU MM 150-430 code = 756) MEAN PLATELET VOLUME (BEAKER) 9.7 fL 6.0-11.5 (test code = 754) NUCLEATED RED BLOOD CELLS 0 /100 WBC 0-0 (BEAKER) (test code = 413) NEUTROPHILS RELATIVE PERCENT 55 % (BEAKER) (test code = 429) LYMPHOCYTES RELATIVE PERCENT 28 % (BEAKER) (test code = 430) MONOCYTES RELATIVE PERCENT 11 % (BEAKER) (test code = 431) EOSINOPHILS RELATIVE PERCENT 5 % (BEAKER) (test code = 432) BASOPHILS RELATIVE PERCENT 1 % (BEAKER) (test code = 437) NEUTROPHILS ABSOLUTE COUNT 3.71 K/ L 1.80-8.00 (BEAKER) (test code = 670) LYMPHOCYTES ABSOLUTE COUNT 1.91 K/ L 1.48-4.50 (BEAKER) (test code = 414) MONOCYTES ABSOLUTE COUNT (BEAKER) 0.73 K/ L 0.00-1.30 (test code = 415) EOSINOPHILS ABSOLUTE COUNT 0.31 K/ L 0.00-0.50 (BEAKER) (test code = 416) BASOPHILS ABSOLUTE COUNT (BEAKER) 0.06 K/ L 0.00-0.20 (test code = 417) IMMATURE GRANULOCYTES-RELATIVE 0 % 0-0 PERCENT (BEAKER) (test code = 2801) PHENYTOIN LEVEL, [id number] 06:25:00 Test Item Value Reference Range Interpretation Comments PHENYTOIN (DILANTIN) (BEAKER) 22.5 ug/mL 10.0-20.0 H (test code = 605) 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 - [id number] METABOLIC [id number] 06:13:00 Test Item Value Reference Range Interpretation Comments SODIUM (BEAKER) 138 meq/L 135-148 (test code = 381) POTASSIUM (BEAKER) 3.7 meq/L 3.6-5.5 (test code = 379) CHLORIDE (BEAKER) 105 meq/L 98-106 (test code = 382) CO2 (BEAKER) (test 24 meq/L 20-29 code = 355) BLOOD UREA NITROGEN 3 mg/dL 10-26 L (BEAKER) (test code = 354) CREATININE (BEAKER) 0.51 mg/dL 0.50-1.20 (test code = 358) GLUCOSE RANDOM 80 mg/dL 70-110 (BEAKER) (test code = 652) CALCIUM (BEAKER) 8.8 mg/dL 8.5-10.5 (test code = 697) EGFR (BEAKER) (test 141 mL/min/1.73 ESTIM ATED GFR IS code = 1092) sq m NOT ACCURATE CREATININE CLEARANCE IN PREDICTING GLOMERULAR FILTRATION RATE . ESTIMATED GFR I S NOT APPLICABLE FOR DIALYSIS PATIEN TS. 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 - [id number] ID - [id number] ID - [id number] ID - [id number] ID - [id number] ID - [id number] ID - [id number] ID - HLSA58Achqouod ID - KLLW30Qiubbchv ID - [id number] FUNCTION [id number] 06:12:00 Test Item Value Reference Range Interpretation Comments TOTAL PROTEIN (BEAKER) (test code = 5.8 gm/dL 6.0-8.5 L 770) ALBUMIN (BEAKER) (test code = 1145) 3.3 g/dL 3.5-5.0 L BILIRUBIN TOTAL (BEAKER) (test code 0.4 mg/dL 0.1-1.2 = 377) BILIRUBIN DIRECT (BEAKER) (test 0.3 mg/dL 0.0-0.4 code = 706) ALKALINE PHOSPHATASE (BEAKER) (test 83 U/L 30-115 code = 346) AST (SGOT) (BEAKER) (test code = 352 U/L 5-40 H 353) ALT (SGPT) (BEAKER) (test code = 1093 U/L 5-50 H 347) 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 - [id number] ID - [id number] ID - LHAO14Fzhqerfa ID - [id number] ID - PYFI78Klepyszl ID - WWPK71Sgxizkfq ID - [id number] 2021-02-15 06:09:00 Test Item Value Reference Range Interpretation Comments MAGNESIUM (BEAKER) (test code = 1.8 mg/dL 1.5-3.0 627) 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 - [id number] ID - [id number] ID - [id number] ID - [id number] [id number] 06:06:00 Test Item Value Reference Range Interpretation Comments Ammonia (test code = 78 See_Comment [Autom ated 13221-3) message] The system which generated this result transmit vandana reference range : 17 - 80 mol/L . The reference range was not u sed to interpret th is result as normal/abnormal . LUIS MIGUEL (test code = LUIS MIGUEL) 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 - [id number] ID - [id number] ID - [id number] ID - [id number] Lab Interpretation Normal (test code = 90117-2) [facility] 06:06:00 Test Item Value Reference Range Interpretation Comments AMMONIA (BEAKER) (test code = 348) 78 mol/L 17-80 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 - [id number] ID - [id number] ID - [id number] ID - [id number] [id number] 06:06:00 Test Item Value Reference Range Interpretation Comments PHOSPHORUS (BEAKER) (test code = 3.3 mg/dL 2.5-4.5 604) 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 - [id number] TIME/[id number] 05:58:00 Test Item Value Reference Range Interpretation Comments PROTIME (BEAKER) 11.2 seconds 9.3-12.0 Final Infor mation (test code = 759) (Auto Outp ut) INR (BEAKER) (test 1.01 See_Comment Final Inf ormation code = 370) (Auto Output) [Automated mess age] The system [employer] generated this result transmitted ref erence range: <=5.90. The reference range was not used to int erpret this result as normal/abnormal . RECOMMENDED COUMADIN/WARFARIN INR THERAPY RANGESSTANDARD DOSE: 2.0 - 3.0 Includes: PROPHYLAXIS for venous thrombosis, systemic embolization; TREATMENT for venous thrombosis and/or pulmonary embolus.HIGH RISK: Target INR is 2.5-3.5 for patients with mechanical heart valves.CBC W/PLT COUNT & AUTO [id number] 05:46:00 Test Item Value Reference Range Interpretation Comments WHITE BLOOD CELL COUNT (BEAKER) 6.3 K/ L 4.0-10.0 (test code = 775) RED BLOOD CELL COUNT (BEAKER) 3.91 M/ L 4.00-5.00 L (test code = 761) HEMOGLOBIN (BEAKER) (test code = 9.8 GM/DL 12.0-15.5 L 410) HEMATOCRIT (BEAKER) (test code = 31.6 % 36.0-46.0 L 411) MEAN CORPUSCULAR VOLUME (BEAKER) 80.8 fL 82.0-99.0 L (test code = 753) MEAN CORPUSCULAR HEMOGLOBIN 25.1 pg 27.0-33.0 L (BEAKER) (test code = 751) MEAN CORPUSCULAR HEMOGLOBIN CONC 31.0 GM/DL 32.0-36.0 L (BEAKER) (test code = 752) RED CELL DISTRIBUTION WIDTH 16.9 % 12.0-15.0 H (BEAKER) (test code = 412) PLATELET COUNT (BEAKER) (test 193 K/CU MM 150-430 code = 756) MEAN PLATELET VOLUME (BEAKER) 9.9 fL 6.0-11.5 (test code = 754) NUCLEATED RED BLOOD CELLS 0 /100 WBC 0-0 (BEAKER) (test code = 413) NEUTROPHILS RELATIVE PERCENT 53 % (BEAKER) (test code = 429) LYMPHOCYTES RELATIVE PERCENT 32 % (BEAKER) (test code = 430) MONOCYTES RELATIVE PERCENT 11 % (BEAKER) (test code = 431) EOSINOPHILS RELATIVE PERCENT 3 % (BEAKER) (test code = 432) BASOPHILS RELATIVE PERCENT 1 % (BEAKER) (test code = 437) NEUTROPHILS ABSOLUTE COUNT 3.30 K/ L 1.80-8.00 (BEAKER) (test code = 670) LYMPHOCYTES ABSOLUTE COUNT 2.03 K/ L 1.48-4.50 (BEAKER) (test code = 414) MONOCYTES ABSOLUTE COUNT (BEAKER) 0.70 K/ L 0.00-1.30 (test code = 415) EOSINOPHILS ABSOLUTE COUNT 0.21 K/ L 0.00-0.50 (BEAKER) (test code = 416) BASOPHILS ABSOLUTE COUNT (BEAKER) 0.04 K/ L 0.00-0.20 (test code = 417) IMMATURE GRANULOCYTES-RELATIVE 0 % 0-0 PERCENT (BEAKER) (test code = 2801) PROTHROMBIN TIME/[id number] 05:10:00 Test Item Value Reference Range Interpretation Comments PROTIME (BEAKER) 13.1 seconds 9.3-12.0 H Final Infor mation (test code = 759) (Auto Outp ut) INR (BEAKER) (test 1.19 See_Comment Final Inf ormation code = 370) (Auto Output) [Automated mess age] The system [employer] generated this result transmitted ref erence range: <=5.90. The reference range was not used to int erpret this result as normal/abnormal . RECOMMENDED COUMADIN/WARFARIN INR THERAPY RANGESSTANDARD DOSE: 2.0 - 3.0 Includes: PROPHYLAXIS for venous thrombosis, systemic embolization; TREATMENT for venous thrombosis and/or pulmonary embolus.HIGH RISK: Target INR is 2.5-3.5 for patients with mechanical heart valves.HEPATIC FUNCTION [id number] 04:52:00 Test Item Value Reference Range Interpretation Comments TOTAL PROTEIN (BEAKER) (test code = 5.6 gm/dL 6.0-8.5 L 770) ALBUMIN (BEAKER) (test code = 1145) 3.2 g/dL 3.5-5.0 L BILIRUBIN TOTAL (BEAKER) (test code 0.5 mg/dL 0.1-1.2 = 377) BILIRUBIN DIRECT (BEAKER) (test 0.4 mg/dL 0.0-0.4 code = 706) ALKALINE PHOSPHATASE (BEAKER) (test 71 U/L 30-115 code = 346) AST (SGOT) (BEAKER) (test code = 905 U/L 5-40 H 353) ALT (SGPT) (BEAKER) (test code = 1579 U/L 5-50 H 347) 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 - [id number] ID - [id number] ID - [id number] ID - [id number] ID - [id number] ID - [id number] ID - [id number] Acetaminophen [id number] 04:46:00 Test Item Value Reference Range Interpretation Comments Acetaminophen Level (test <6.0 10.0-30.0 L code = 3298-7) LUIS MIGUEL (test code = LUIS MIGUEL) 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 - [id number] ID - [id number] ID - [id number] ID - [id number] Lab Interpretation (test Abnormal code = 61879-3) [facility] METABOLIC [id number] 04:46:00 Test Item Value Reference Range Interpretation Comments SODIUM (BEAKER) 135 meq/L 135-148 (test code = 381) POTASSIUM (BEAKER) 3.9 meq/L 3.6-5.5 (test code = 379) CHLORIDE (BEAKER) 103 meq/L 98-106 (test code = 382) CO2 (BEAKER) (test 25 meq/L 20-29 code = 355) BLOOD UREA NITROGEN < mg/dL 10-26 L (BEAKER) (test code = 354) CREATININE (BEAKER) 0.52 mg/dL 0.50-1.20 (test code = 358) GLUCOSE RANDOM 113 mg/dL 70-110 H (BEAKER) (test code = 652) CALCIUM (BEAKER) 8.5 mg/dL 8.5-10.5 (test code = 697) EGFR (BEAKER) (test 138 mL/min/1.73 ESTIM ATED GFR IS code = 1092) sq m NOT ACCURATE CREATININE CLEARANCE IN PREDICTING GLOMERULAR FILTRATION RATE . ESTIMATED GFR I S NOT APPLICABLE FOR DIALYSIS PATIEN TS. 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 - [id number] ID - [id number] ID - [id number] ID - [id number] ID - [id number] ID - [id number] ID - [id number] ID - [id number] ID - [id number] LEVEL 2021-02-14 04:46:00 Test Item Value Reference Range Interpretation Comments ACETAMINOPHEN LEVEL (BEAKER) (test < ug/mL 10.0-30.0 L code = 344) 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 - [id number] ID - [id number] ID - [id number] ID - [id number] 04:41:00 Test Item Value Reference Range Interpretation Comments MAGNESIUM (BEAKER) (test code = 2.8 mg/dL 1.5-3.0 627) 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 - [id number] ID - [id number] ID - [id number] ID - [id number] 04:38:00 Test Item Value Reference Range Interpretation Comments PHOSPHORUS (BEAKER) (test code = 2.6 mg/dL 2.5-4.5 604) 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 - [id number] 04:30:00 Test Item Value Reference Range Interpretation Comments AMMONIA (BEAKER) (test code = 348) 95 mol/L 17-80 H 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 - [id number] ID - [id number] ID - [id number] ID - [id number] gas, [id number] 04:29:00 Test Item Value Reference Range Interpretation Comments pH, Devyn (test code = 7.40 7.32-7.42 8616-6) pCO2, Devyn (test code = 45 See_Comment [Aut omated message] 385) The system ic h generated this result transmit vandana reference range : 41 - 51 mm Hg. The reference range was not used to interpret this result as normal/abnormal . pO2, Devyn (test code = 51 See_Comment H [Auto mated message] 5222-2) The system whic h generated this result transmit vandana reference range : 25 - 40 mm Hg. The reference range was not used to interpret this result as normal/abnormal . O2 Sat, Devyn (test code 85.8 % 40.0-70.0 H = 7071-0) HCO3, Devyn (test code = 27 mmol/L 21-29 05342-8) Base Excess, Devyn (test 2.3 mmol/L -2.0-3.0 code = 1927-3) Patient Temperature 37.0 (test code = 8310-5) FIO2 (test code = 1819) 21 Lab Interpretation Abnormal (test code = 13920-7) [id number]:29:00 Test Item Value Reference Range Interpretation Comments PH VENOUS (BEAKER) (test code = 7.40 7.32-7.42 701) PCO2 VENOUS (BEAKER) (test code = 45 mm Hg 41-51 755) PO2 VENOUS (BEAKER) (test code = 51 mm Hg 25-40 H 702) O2 SATURATION VENOUS (BEAKER) 85.8 % 40.0-70.0 H (test code = 703) HCO3 VENOUS (BEAKER) (test code = 27 mmol/L 21-29 705) BASE EXCESS VENOUS (BEAKER) (test 2.3 mmol/L -2.0-3.0 code = 704) PATIENT TEMPERATURE (BEAKER) (test 37.0 code = 1818) FIO2 (BEAKER) (test code = 1819) 21.0 CBC W/PLT COUNT & AUTO [id number] 04:27:00 Test Item Value Reference Range Interpretation Comments WHITE BLOOD CELL COUNT (BEAKER) 8.1 K/ L 4.0-10.0 (test code = 775) RED BLOOD CELL COUNT (BEAKER) 4.11 M/ L 4.00-5.00 (test code = 761) HEMOGLOBIN (BEAKER) (test code = 10.4 GM/DL 12.0-15.5 L 410) HEMATOCRIT (BEAKER) (test code = 32.4 % 36.0-46.0 L 411) MEAN CORPUSCULAR VOLUME (BEAKER) 78.8 fL 82.0-99.0 L (test code = 753) MEAN CORPUSCULAR HEMOGLOBIN 25.3 pg 27.0-33.0 L (BEAKER) (test code = 751) MEAN CORPUSCULAR HEMOGLOBIN CONC 32.1 GM/DL 32.0-36.0 (BEAKER) (test code = 752) RED CELL DISTRIBUTION WIDTH 16.5 % 12.0-15.0 H (BEAKER) (test code = 412) PLATELET COUNT (BEAKER) (test 181 K/CU MM 150-430 code = 756) MEAN PLATELET VOLUME (BEAKER) 9.5 fL 6.0-11.5 (test code = 754) NUCLEATED RED BLOOD CELLS 0 /100 WBC 0-0 (BEAKER) (test code = 413) NEUTROPHILS RELATIVE PERCENT 72 % (BEAKER) (test code = 429) LYMPHOCYTES RELATIVE PERCENT 15 % (BEAKER) (test code = 430) MONOCYTES RELATIVE PERCENT 12 % (BEAKER) (test code = 431) EOSINOPHILS RELATIVE PERCENT 1 % (BEAKER) (test code = 432) BASOPHILS RELATIVE PERCENT 0 % (BEAKER) (test code = 437) NEUTROPHILS ABSOLUTE COUNT 5.79 K/ L 1.80-8.00 (BEAKER) (test code = 670) LYMPHOCYTES ABSOLUTE COUNT 1.23 K/ L 1.48-4.50 L (BEAKER) (test code = 414) MONOCYTES ABSOLUTE COUNT (BEAKER) 0.97 K/ L 0.00-1.30 (test code = 415) EOSINOPHILS ABSOLUTE COUNT 0.04 K/ L 0.00-0.50 (BEAKER) (test code = 416) BASOPHILS ABSOLUTE COUNT (BEAKER) 0.03 K/ L 0.00-0.20 (test code = 417) IMMATURE GRANULOCYTES-RELATIVE 0 % 0-0 PERCENT (BEAKER) (test code = 2801) Lactic acid, [id number] 04:26:00 Test Item Value Reference Range Interpretation Comments Lactate, Venous (test code 0.57 mmol/L 0.50-2.00 = 2872) LUIS MIGUEL (test code = LUIS MIGUEL) 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 - [id number] ID - [id number] ID - [id number] ID - [id number] Lab Interpretation (test Normal code = 88687-0) [facility] [id number] 04:26:00 Test Item Value Reference Range Interpretation Comments LACTATE BLOOD 0.57 mmol/L See_Comment [Automated me ssage] VENOUS (2) (BEAKER) The syst em which (test code = 2872) generated this result transmitted ref erence range: 0.50-<2. 00. The reference range was not used to interpr et this result as normal/abnormal . 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 - [id number] ID - [id number] ID - [id number] ID - [id number]/RT-PCR (Asymptomatic ONLY)2021-02-13 23:14:00 Test Item Value Reference Interpretation Comments Range SARS-COV2/RT-PCR Negative Negative The SARS-Co V-2 (test code = target nucleic 02837-5) acids are not detected in thi s specimen. Negat bravo results do not preclude SARS-C oV-2 infection and should not be u sed as the sole bas is for patient management decisions. Nega tive results must be combined with clinical observations, patient history , and epidemiolog ical information. A false negative result may occu r if a specimen is improperly collected, transported or handled. This S ARS CoV-2 test is a rapid, real-rakesh e RT-PCR test intended for th e qualitative detection of nucleic acid fr om SARS-CoV-2 in a nasopharyngeal swab specimen colle vandana from individual s suspected of COVID-19 by the ir healthcare provider. LUIS MIGUEL (test code = This test has been LUIS MIGUEL) authorized by FDA under an EUA for use by authorized laboratories. This test is only authorized for the duration of the declaration that circumstances exist justifying the authorization of emergency use of in vitro diagnostic tests for detection and/or diagnosis of COVID-19 under Section 564(b)(1) of the Federal Food, Drug and Cosmetic Act, 21 U.S.C. 360bbb-3(b)(1), unless the authorization is terminated or revoked sooner. Fact Sheet for Healthcare Providers: https://www.[employer]/Documents/Xp ert%20Xpress%20SAR S%20CoV-2/Fact%20S heets/302-3882%20S ARS-COV-2%20HEALTH CARE%20PROVIDERS%2 0FACT%20SHEET.pdf Fact Sheet for Healthcare Patients: https://www.[employer]/Documents/Xp ert%20Xpress%20SAR S%20CoV-2/Fact%20S heets/3023801%20S ARS-COV-2%20PATIEN T%20FACT%20SHEET.p df Lab Interpretation Normal (test code = 53217-7) [facility]2021-02-13 23:14:00 Test Item Value Reference Range Interpretation Comments SARS-COV2/RT-PCR Negative Negative The SARS-Co V-2 target (test code = nucleic acids a re not 2469194) detected in thi s specimen. Negative result s do not preclude SARS-C oV-2 infection and s hould not be used as the lara e basis for patient managem ent decisions. Nega tive results must be combine d with clinical observ ations, patient history , and epidemiological information. A false negativ e result may occur if a spec imen is improperly crescencio ected, transported or handled. This SARS CoV-2 test is a rapid, real-time RT-PC R test intended for th e qualitative detection of nu cleic acid from SARS-CoV-2 in a nasopharyngeal swab specimen collected from individuals suspected of CO VID-19 by their healthcar e provider. This test has been authorized by FDA under an EUA for use by authorized laboratories. This test is only authorized for the duration of the declaration that circumstances exist justifying the authorization of emergency use of in vitro diagnostic tests for detection and/or diagnosis of COVID-19 under Section 564(b)(1) of the Federal Food, Drug and Cosmetic Act, 21 U.S.C. 360bbb-3(b)(1), unless the authorization is terminated or revoked sooner. Fact Sheet for Healthcare Providers: https://www.[employer] m/Documents/Xpert%20Xpress%20SARS%20CoV-2/Fact%20Sheets/051-2782%02LQUC-ISQ-4%20 HEALTHCARE%20PROVIDERS%20FACT%20SHEET.pdf Fact Sheet for Healthcare Patients: https://www.[employer]/Documents/Xpert%20Xp ress%20SARS%20CoV-2/Fact%20Sheets/032-4777%66SFOL-PKU-8%20PATIENT%20FACT%20SHEET .pdfPHENYTOIN LEVEL, [id number] 22:57:00 Test Item Value Reference Range Interpretation Comments PHENYTOIN (DILANTIN) (BEAKER) 25.8 ug/mL 10.0-20.0 H (test code = 605) 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 - [id number] [id number] 20:40:00Unlisted Reason for Exam - Click Yes and Enter Reason Below->YesUnlisted Reason for Exam->Altered mental status, rule out basilar artery thrombosis [facility] 1990 Sex: FFINAL REPORT CLINICAL HISTORY: Unlisted Reason for ExamAltered mental status, rule out basilar artery thrombosis TECHNIQUE: Contiguous contrast- enhanced axial images through the head with coronal and sagittal reformations to assess the arterial circulation. 3-D reconstructions were performed using a volume rendered technique separately on a workstation. This exam was performed according tot departmental dose optimization program which includes automated exposure control, adjustment of the mA and/or kV according to the patient size, and/or use of an iterative reconstruction technique. COMPARISON: Head CT 02/13/2021 FINDINGS: The CT angiogram images reveal no evidence of intracranial aneurysm, critical stenosis, or large branch vessel occlusion. The major intradural venous sinuses are patent. IMPRESSION: No evidence for a [place] large vessel occlusion. Specifically, the basilar artery is patent. Signed: Ian Kirby MDReport Verified Date/Time: 02/13/2021 20:40:51 RAD, CHEST, 1 VIEW, NON [id number] 20:25:00Reason for exam:->PICC line placement confirmationShould this be performed at the bedside?->Yes [facility] 1990 Sex: FFINAL REPORT RAD, CHEST, 1 VIEW, NON DEPT INDICATION: PICC line placement confirmation COMPARISON: 05/15/2017 FINDINGS: Portable frontal view of the chest. IMPRESSION: Support Lines: The right PICC terminates within the SVC near the cavoatrial junction. Lungs and pleura: No consolidation or effusion. No pneumothorax.Heart and mediastinum: Unremarkable cardiomediastinal contours.Additional findings: None. Signed: Nickie Dailey [facility] Verified Date/Time: 02/13/2021 20:25:08 CT, BRAIN, WITHOUT [id number] 19:02:00Unlisted Reason for Exam - Click Yes and Enter Reason Below->No [facility] 1990 Sex: FFINAL REPORT CT Head without contrast CLINICAL HISTORY: Altered mental status TECHNIQUE: Contiguous axial CT images through the head without contrast. This exam was performed according to the departmental dose optimization program which includes automated exposure control, adjustment of themA and/or kV according to the patient size, and/or use of an iterative reconstruction technique. COMPARISON: MRI 05/15/2017 FINDINGS: There has been interval placement of bifrontal approach deep brain stimulating electrodes terminating approximately at the anteromedial margins of the thalami. Allowing for metallic streak effect, there is no visualized CT evidence for acute infarct or hemorrhage. Thereis mild generalized sulcal prominence without hydrocephalus or midline shift. There are no extra-axial fluid collections. There is no skull fracture. The visualized paranasal sinuses are well-aerated. IMPRESSION: No definitive CT evidence for acute infarct or hemorrhage. Bifrontal approach deep brain stimulating electrodes as discussed above. Signed: Ian Kirby MDReport Verified Date/Time: 02/13/2021 19:02:28 . [facility]ITALOMPREHENSIVE METABOLIC [id number] 18:59:00 Test Item Value Reference Range Interpretation Comments TOTAL PROTEIN 6.3 gm/dL 6.0-8.5 (BEAKER) (test code = 770) ALBUMIN (BEAKER) 3.7 g/dL 3.5-5.0 (test code = 1145) ALKALINE PHOSPHATASE 81 U/L 30-115 (BEAKER) (test code = 346) BILIRUBIN TOTAL 0.5 mg/dL 0.1-1.2 (BEAKER) (test code = 377) SODIUM (BEAKER) (test 136 meq/L 135-148 code = 381) POTASSIUM (BEAKER) 3.5 meq/L 3.6-5.5 L (test code = 379) CHLORIDE (BEAKER) 101 meq/L 98-106 (test code = 382) CO2 (BEAKER) (test 25 meq/L 20-29 code = 355) BLOOD UREA NITROGEN < mg/dL 10-26 L (BEAKER) (test code = 354) CREATININE (BEAKER) 0.56 mg/dL 0.50-1.20 (test code = 358) GLUCOSE RANDOM 128 mg/dL 70-110 H (BEAKER) (test code = 652) CALCIUM (BEAKER) 8.8 mg/dL 8.5-10.5 (test code = 697) AST (SGOT) (BEAKER) 1445 U/L 5-40 H (test code = 353) ALT (SGPT) (BEAKER) 1964 U/L 5-50 H (test code = 347) EGFR (BEAKER) (test 126 ESTIMATE D GFR IS code = 1092) mL/min/1.73 sq NOT ACCURA TE m CREATININE CLEARANCE IN PREDICTING GLOMERULAR FILTRATION RATE . ESTIMATED GFR I S NOT APPLICABLE FOR DIALYSIS PATIEN TS. 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 - [id number] ID - [id number] ID - [id number] ID - [id number] ID - [id number] ID - [id number] ID - [id number] ID - [id number] ID - [id number] ID - [id number] ID - [id number] ID - [id number] ID - [id number] ID - [id number] ID - [id number] ID - [id number] ID - [id number] ID - [id number] TIME/INR 2021-02-13 18:56:00 Test Item Value Reference Range Interpretation Comments PROTIME (TUCKER) 14.6 seconds 9.3-12.0 H Final Infor mation (test code = 759) (Auto Outp ut) INR (BEAKER) (test 1.34 See_Comment Final Inf ormation code = 370) (Auto Output) [Automated mess age] The system ic h generated this result transmitted ref erence range: <=5.90. The reference range was not used to int erpret this result as normal/abnormal . RECOMMENDED COUMADIN/WARFARIN INR THERAPY RANGESSTANDARD DOSE: 2.0 - 3.0 Includes: PROPHYLAXIS for venous thrombosis, systemic embolization; TREATMENT for venous thrombosis and/or pulmonary embolus.HIGH RISK: Target INR is 2.5-3.5 for patients with mechanical heart valves.LACTIC ACID, [id number] 18:52:00 Test Item Value Reference Range Interpretation Comments LACTATE BLOOD 0.86 mmol/L See_Comment [Automated me ssage] VENOUS (2) (BEAKER) The syst em which (test code = 2872) generated this result transmitted ref erence range: 0.50-<2. 00. The reference range was not used to interpr et this result as normal/abnormal . 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 - [id number] ID - [id number] ID - [id number] ID - [id number] 18:46:00 Test Item Value Reference Range Interpretation Comments AMMONIA (BEAKER) (test code = 348) 80 mol/L 17-80 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 - [id number] ID - [id number] ID - [id number] ID - [id number] W/PLT COUNT & AUTO [id number] 18:39:00 Test Item Value Reference Range Interpretation Comments WHITE BLOOD CELL COUNT (BEAKER) 9.8 K/ L 4.0-10.0 (test code = 775) RED BLOOD CELL COUNT (BEAKER) 4.56 M/ L 4.00-5.00 (test code = 761) HEMOGLOBIN (BEAKER) (test code = 11.5 GM/DL 12.0-15.5 L 410) HEMATOCRIT (BEAKER) (test code = 35.7 % 36.0-46.0 L 411) MEAN CORPUSCULAR VOLUME (BEAKER) 78.3 fL 82.0-99.0 L (test code = 753) MEAN CORPUSCULAR HEMOGLOBIN 25.2 pg 27.0-33.0 L (BEAKER) (test code = 751) MEAN CORPUSCULAR HEMOGLOBIN CONC 32.2 GM/DL 32.0-36.0 (BEAKER) (test code = 752) RED CELL DISTRIBUTION WIDTH 16.1 % 12.0-15.0 H (BEAKER) (test code = 412) PLATELET COUNT (BEAKER) (test 238 K/CU MM 150-430 code = 756) MEAN PLATELET VOLUME (BEAKER) 9.4 fL 6.0-11.5 (test code = 754) NUCLEATED RED BLOOD CELLS 0 /100 WBC 0-0 (BEAKER) (test code = 413) NEUTROPHILS RELATIVE PERCENT 77 % (BEAKER) (test code = 429) LYMPHOCYTES RELATIVE PERCENT 10 % (BEAKER) (test code = 430) MONOCYTES RELATIVE PERCENT 12 % (BEAKER) (test code = 431) EOSINOPHILS RELATIVE PERCENT 0 % (BEAKER) (test code = 432) BASOPHILS RELATIVE PERCENT 0 % (BEAKER) (test code = 437) NEUTROPHILS ABSOLUTE COUNT 7.61 K/ L 1.80-8.00 (BEAKER) (test code = 670) LYMPHOCYTES ABSOLUTE COUNT 0.94 K/ L 1.48-4.50 L (BEAKER) (test code = 414) MONOCYTES ABSOLUTE COUNT (BEAKER) 1.20 K/ L 0.00-1.30 (test code = 415) EOSINOPHILS ABSOLUTE COUNT 0.01 K/ L 0.00-0.50 (BEAKER) (test code = 416) BASOPHILS ABSOLUTE COUNT (BEAKER) 0.03 K/ L 0.00-0.20 (test code = 417) IMMATURE GRANULOCYTES-RELATIVE 1 % 0-0 H PERCENT (BEAKER) (test code = 2801) BLOOD GAS, [id number] 18:39:00 Test Item Value Reference Range Interpretation Comments PH VENOUS (BEAKER) (test code = 7.45 7.32-7.42 H 701) PCO2 VENOUS (BEAKER) (test code = 43 mm Hg 41-51 755) PO2 VENOUS (BEAKER) (test code = 57 mm Hg 25-40 H 702) O2 SATURATION VENOUS (BEAKER) 90.6 % 40.0-70.0 H (test code = 703) HCO3 VENOUS (BEAKER) (test code = 30 mmol/L 21-29 H 705) BASE EXCESS VENOUS (BEAKER) (test 5.2 mmol/L -2.0-3.0 H code = 704) PATIENT TEMPERATURE (BEAKER) (test 37.0 code = 1818) FIO2 (BEAKER) (test code = 1819) 21.0 Hemoglobin and [id number] 13:38:00 Test Item Value Reference Range Interpretation Comments Hemoglobin (test code = 10.7 See_Comment L [Au tomated message] 786-4) The system [employer] generated this result transmitted ref erence range: 12.0 - 1 5.5 GM/DL. The refe rence range was not u sed to interpret this result as normal/abnor mal. Hematocrit (test code = 33.2 % 36.0-46.0 L 4544-3) Lab Interpretation (test Abnormal code = 51461-5) [facility]HEMOGLOBIN AND [id number] 13:38:00 Test Item Value Reference Range Interpretation Comments HEMOGLOBIN (BEAKER) (test code = 10.7 GM/DL 12.0-15.5 L 410) HEMATOCRIT (BEAKER) (test code = 33.2 % 36.0-46.0 L 411) HEPATIC FUNCTION [id number] 10:43:00 Test Item Value Reference Range Interpretation Comments TOTAL PROTEIN (BEAKER) (test code = 6.1 gm/dL 6.0-8.5 770) ALBUMIN (BEAKER) (test code = 1145) 3.6 g/dL 3.5-5.0 BILIRUBIN TOTAL (BEAKER) (test code 0.5 mg/dL 0.1-1.2 = 377) BILIRUBIN DIRECT (BEAKER) (test 0.4 mg/dL 0.0-0.4 code = 706) ALKALINE PHOSPHATASE (BEAKER) (test 94 U/L 30-115 code = 346) AST (SGOT) (BEAKER) (test code = 1848 U/L 5-40 H 353) ALT (SGPT) (BEAKER) (test code = 1995 U/L 5-50 H 347) 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 - DSENSONOperator ID - DSENSONOperator ID - DSENSONOperator ID - DSENSONOperator ID - DSENSONOperator ID - DSENSONOperator ID - DSENSONOperator ID - DSENSONOperator ID - DSENSONOperator ID - DSENSONACETAMINOPHEN LEVEL 2021-02-13 10:43:00 Test Item Value Reference Range Interpretation Comments ACETAMINOPHEN LEVEL (BEAKER) (test < ug/mL 10.0-30.0 L code = 344) 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 - DSENSONOperator ID - DSENSONOperator ID - DSENSONOperator ID - DSENSONPROTHROMBIN [id number] 10:35:00 Test Item Value Reference Range Interpretation Comments PROTIME (BEAKER) 15.7 seconds 9.3-12.0 H Final Infor mation (test code = 759) (Auto Outp ut) INR (BEAKER) (test 1.44 See_Comment Final Inf ormation code = 370) (Auto Output) [Automated mess age] The system ic h generated this result transmitted ref erence range: <=5.90. The reference range was not used to int erpret this result as normal/abnormal . RECOMMENDED COUMADIN/WARFARIN INR THERAPY RANGESSTANDARD DOSE: 2.0 - 3.0 Includes: PROPHYLAXIS for venous thrombosis, systemic embolization; TREATMENT for venous thrombosis and/or pulmonary embolus.HIGH RISK: Target INR is 2.5-3.5 for patients with mechanical heart valves.PHENYTOIN LEVEL, [id number] 05:16:00 Test Item Value Reference Range Interpretation Comments PHENYTOIN (DILANTIN) (BEAKER) 28.6 ug/mL 10.0-20.0 H (test code = 605) 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 - [id number] FUNCTION [id number] 04:43:00 Test Item Value Reference Range Interpretation Comments TOTAL PROTEIN (BEAKER) (test code = 5.9 gm/dL 6.0-8.5 L 770) ALBUMIN (BEAKER) (test code = 1145) 3.5 g/dL 3.5-5.0 BILIRUBIN TOTAL (BEAKER) (test code 0.5 mg/dL 0.1-1.2 = 377) BILIRUBIN DIRECT (BEAKER) (test 0.4 mg/dL 0.0-0.4 code = 706) ALKALINE PHOSPHATASE (BEAKER) (test 78 U/L 30-115 code = 346) AST (SGOT) (BEAKER) (test code = 1180 U/L 5-40 H 353) ALT (SGPT) (BEAKER) (test code = 1085 U/L 5-50 H 347) 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 - [id number] ID - [id number] ID - [id number] ID - [id number] ID - [id number] ID - [id number] ID - [id number] METABOLIC [id number] 04:15:00 Test Item Value Reference Range Interpretation Comments SODIUM (BEAKER) 136 meq/L 135-148 (test code = 381) POTASSIUM (BEAKER) 3.0 meq/L 3.6-5.5 L (test code = 379) CHLORIDE (BEAKER) 102 meq/L 98-106 (test code = 382) CO2 (BEAKER) (test 25 meq/L 20-29 code = 355) BLOOD UREA NITROGEN 3 mg/dL 10-26 L (BEAKER) (test code = 354) CREATININE (BEAKER) 0.56 mg/dL 0.50-1.20 (test code = 358) GLUCOSE RANDOM 115 mg/dL 70-110 H (BEAKER) (test code = 652) CALCIUM (BEAKER) 8.4 mg/dL 8.5-10.5 L (test code = 697) EGFR (BEAKER) (test 126 mL/min/1.73 ESTIM ATED GFR IS code = 1092) sq m NOT ACCURATE CREATININE CLEARANCE IN PREDICTING GLOMERULAR FILTRATION RATE . ESTIMATED GFR I S NOT APPLICABLE FOR DIALYSIS PATIEN TS. 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 - [id number] ID - [id number] ID - [id number] ID - [id number] ID - [id number] ID - [id number] ID - [id number] ID - [id number] ID - [id number] ID - [id number] 04:15:00 Test Item Value Reference Range Interpretation Comments MAGNESIUM (BEAKER) (test code = 1.6 mg/dL 1.5-3.0 627) 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 - [id number] ID - [id number] ID - [id number] ID - [id number] 04:12:00 Test Item Value Reference Range Interpretation Comments PHOSPHORUS (BEAKER) (test code = 2.3 mg/dL 2.5-4.5 L 604) 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 - [id number] 04:05:00 Test Item Value Reference Range Interpretation Comments PROTIME (BEAKER) 16.6 seconds 9.3-12.0 H Final Infor mation (test code = 759) (Auto Outp ut) INR (BEAKER) (test 1.53 See_Comment Final Inf ormation code = 370) (Auto Output) [Automated mess age] The system [employer] generated this result transmitted ref erence range: <=5.90. The reference range was not used to int erpret this result as normal/abnormal . RECOMMENDED COUMADIN/WARFARIN INR THERAPY RANGESSTANDARD DOSE: 2.0 - 3.0 Includes: PROPHYLAXIS for venous thrombosis, systemic embolization; TREATMENT for venous thrombosis and/or pulmonary embolus.HIGH RISK: Target INR is 2.5-3.5 for patients with mechanical heart valves.CBC W/PLT COUNT & AUTO [id number] 03:59:00 Test Item Value Reference Range Interpretation Comments WHITE BLOOD CELL COUNT (BEAKER) 9.6 K/ L 4.0-10.0 (test code = 775) RED BLOOD CELL COUNT (BEAKER) 4.35 M/ L 4.00-5.00 (test code = 761) HEMOGLOBIN (BEAKER) (test code = 11.0 GM/DL 12.0-15.5 L 410) HEMATOCRIT (BEAKER) (test code = 34.3 % 36.0-46.0 L 411) MEAN CORPUSCULAR VOLUME (BEAKER) 78.9 fL 82.0-99.0 L (test code = 753) MEAN CORPUSCULAR HEMOGLOBIN 25.3 pg 27.0-33.0 L (BEAKER) (test code = 751) MEAN CORPUSCULAR HEMOGLOBIN CONC 32.1 GM/DL 32.0-36.0 (BEAKER) (test code = 752) RED CELL DISTRIBUTION WIDTH 16.0 % 12.0-15.0 H (BEAKER) (test code = 412) PLATELET COUNT (BEAKER) (test 204 K/CU MM 150-430 code = 756) MEAN PLATELET VOLUME (BEAKER) 9.2 fL 6.0-11.5 (test code = 754) NUCLEATED RED BLOOD CELLS 0 /100 WBC 0-0 (BEAKER) (test code = 413) NEUTROPHILS RELATIVE PERCENT 81 % (BEAKER) (test code = 429) LYMPHOCYTES RELATIVE PERCENT 8 % (BEAKER) (test code = 430) MONOCYTES RELATIVE PERCENT 10 % (BEAKER) (test code = 431) EOSINOPHILS RELATIVE PERCENT 0 % (BEAKER) (test code = 432) BASOPHILS RELATIVE PERCENT 0 % (BEAKER) (test code = 437) NEUTROPHILS ABSOLUTE COUNT 7.76 K/ L 1.80-8.00 (BEAKER) (test code = 670) LYMPHOCYTES ABSOLUTE COUNT 0.80 K/ L 1.48-4.50 L (BEAKER) (test code = 414) MONOCYTES ABSOLUTE COUNT (BEAKER) 0.96 K/ L 0.00-1.30 (test code = 415) EOSINOPHILS ABSOLUTE COUNT 0.02 K/ L 0.00-0.50 (BEAKER) (test code = 416) BASOPHILS ABSOLUTE COUNT (BEAKER) 0.03 K/ L 0.00-0.20 (test code = 417) IMMATURE GRANULOCYTES-RELATIVE 0 % 0-0 PERCENT (BEAKER) (test code = 2801) Valproic acid level, [id number] 17:14:00 Test Item Value Reference Range Interpretation Comments Valproic Acid, Total <1 50-100 L (test code = 4086-5) LUIS MIGUEL (test code = LUIS MIGUEL) Therapeutic range for some clinical conditions may be >100 ug/mLOperator ID - FIFI Lab Interpretation (test Abnormal code = 69329-2) [facility], [id number] 17:14:00 Test Item Value Reference Range Interpretation Comments VALPROIC ACID TOTAL (BEAKER) (test < ug/mL 50-100 L code = 924) Therapeutic range for some clinical conditions may be >100 ug/mLOperator ID - JUSTINPHENYTOIN LEVEL, [id number] 17:14:00 Test Item Value Reference Range Interpretation Comments PHENYTOIN (DILANTIN) (BEAKER) 28.9 ug/mL 10.0-20.0 H (test code = 605) 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 - JUSTINACETAMINOPHEN [id number] 17:09:00 Test Item Value Reference Range Interpretation Comments ACETAMINOPHEN LEVEL (BEAKER) (test < ug/mL 10.0-30.0 L code = 344) 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 - JUSTINOperator ID - JUSTINOperator ID - JUSTINOperator ID - FIFI [place] [id number] 16:53:00 Test Item Value Reference Range Interpretation Comments [place] Level (test code = <0.2 0.4-1.2 L 44152-5) LUIS MIGUEL (test code = LUIS MIGUEL) 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 - FIFI Lab Interpretation (test Abnormal code = 56182-6) [facility] HospitalLITHI[facility] [id number] 16:53:00 Test Item Value Reference Range Interpretation Comments LITHIUM LEVEL (BEAKER) (test code = < mmol/L 0.4-1.2 L 630) 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 - JUSTINHEPATIC FUNCTION [id number] 16:40:00 Test Item Value Reference Range Interpretation Comments TOTAL PROTEIN (BEAKER) (test code = 6.0 gm/dL 6.0-8.5 770) ALBUMIN (BEAKER) (test code = 1145) 3.6 g/dL 3.5-5.0 BILIRUBIN TOTAL (BEAKER) (test code 0.5 mg/dL 0.1-1.2 = 377) BILIRUBIN DIRECT (BEAKER) (test 0.4 mg/dL 0.0-0.4 code = 706) ALKALINE PHOSPHATASE (BEAKER) (test 76 U/L 30-115 code = 346) AST (SGOT) (BEAKER) (test code = 75 U/L 5-40 H 353) ALT (SGPT) (BEAKER) (test code = 80 U/L 5-50 H 347) 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 - DSENSONOperator ID - DSENSONOperator ID - DSENSONOperator ID - DSENSONOperator ID - DSENSONOperator ID - DSENSONOperator ID - DSENSONOperator ID - DSENSONOperator ID - DSENSONOperator ID - DSENSONPROTHROMBIN TIME/INR 2021-02-12 16:31:00 Test Item Value Reference Range Interpretation Comments PROTIME (BEAKER) 15.9 seconds 9.3-12.0 H Final Infor mation (test code = 759) (Auto Outp ut) INR (BEAKER) (test 1.46 See_Comment Final Inf ormation code = 370) (Auto Output) [Automated mess age] The system [employer] generated this result transmitted ref erence range: <=5.90. The reference range was not used to int erpret this result as normal/abnormal . RECOMMENDED COUMADIN/WARFARIN INR THERAPY RANGESSTANDARD DOSE: 2.0 - 3.0 Includes: PROPHYLAXIS for venous thrombosis, systemic embolization; TREATMENT for venous thrombosis and/or pulmonary embolus.HIGH RISK: Target INR is 2.5-3.5 for patients with mechanical heart valves.Creatine Kinase (CK)2021-02-12 08:06:00 Test Item Value Reference Range Interpretation Comments Total CK (test code = 36 U/L 25-235 2157-6) LUIS MIGUEL (test code = LUIS MIGUEL) 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 - DSENSON Lab Interpretation (test Normal code = 08733-7) [facility] 08:06:00 Test Item Value Reference Range Interpretation Comments CREATINE KINASE TOTAL (BEAKER) (test 36 U/L 25-235 code = 380) 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 - DSENSONACETAMINOPHEN [id number] 07:11:00 Test Item Value Reference Range Interpretation Comments ACETAMINOPHEN LEVEL (BEAKER) (test 15.2 ug/mL 10.0-30.0 code = 344) 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 - LITOOperator ID - LITOOperator ID - LITOOperator ID - DSENSON PHENYTOIN LEVEL, [id number] 04:57:00 Test Item Value Reference Range Interpretation Comments PHENYTOIN (DILANTIN) (BEAKER) 32.9 ug/mL 10.0-20.0 H (test code = 605) 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 - [id number] METABOLIC [id number] 04:57:00 Test Item Value Reference Range Interpretation Comments TOTAL PROTEIN 6.6 gm/dL 6.0-8.5 Specimen sligh tly (BEAKER) (test code = hemoly zed 770) ALBUMIN (BEAKER) 3.8 g/dL 3.5-5.0 Specimen sl ightly (test code = 1145) hemolyzed ALKALINE PHOSPHATASE 82 U/L 30-115 (BEAKER) (test code = 346) BILIRUBIN TOTAL 0.6 mg/dL 0.1-1.2 Specimen sli ghtly (BEAKER) (test code = hemoly zed 377) SODIUM (BEAKER) (test 134 meq/L 135-148 L code = 381) POTASSIUM (BEAKER) 4.1 meq/L 3.6-5.5 Specimen slightly (test code = 379) hemolyzed CHLORIDE (BEAKER) 103 meq/L 98-106 (test code = 382) CO2 (BEAKER) (test 20 meq/L 20-29 code = 355) BLOOD UREA NITROGEN 5 mg/dL 10-26 L (BEAKER) (test code = 354) CREATININE (BEAKER) 0.53 mg/dL 0.50-1.20 Specimen slightly (test code = 358) hemolyzed GLUCOSE RANDOM 142 mg/dL 70-110 H (BEAKER) (test code = 652) CALCIUM (BEAKER) 8.6 mg/dL 8.5-10.5 (test code = 697) AST (SGOT) (BEAKER) 55 U/L 5-40 H Specimen slightly (test code = 353) hemolyzed ALT (SGPT) (BEAKER) 50 U/L 5-50 Specimen slightly (test code = 347) hemolyzed EGFR (BEAKER) (test 135 ESTIMATE D GFR IS code = 1092) mL/min/1.73 sq NOT ACCURA TE m CREATININE CLEARANCE IN PREDICTING GLOMERULAR FILTRATION RATE . ESTIMATED GFR I S NOT APPLICABLE FOR DIALYSIS PATIEN TS. 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 - [id number] ID - [id number] ID - [id number] ID - [id number] ID - [id number] ID - [id number] ID - [id number] ID - [id number] ID - [id number] ID - [id number] ID - [id number] ID - [id number] ID - [id number] ID - [id number] ID - [id number] ID - [id number] PROTHROMBIN TIME/[id number] 04:53:00 Test Item Value Reference Range Interpretation Comments PROTIME (BEAKER) 17.2 seconds 9.3-12.0 H Final Infor mation (test code = 759) (Auto Outp ut) INR (BEAKER) (test 1.59 See_Comment Final Inf ormation code = 370) (Auto Output) [Automated mess age] The system [employer] generated this result transmitted ref erence range: <=5.90. The reference range was not used to int erpret this result as normal/abnormal . RECOMMENDED COUMADIN/WARFARIN INR THERAPY RANGESSTANDARD DOSE: 2.0 - 3.0 Includes: PROPHYLAXIS for venous thrombosis, systemic embolization; TREATMENT for venous thrombosis and/or pulmonary embolus.HIGH RISK: Target INR is 2.5-3.5 for patients with mechanical heart valves.[id number] 04:40:00 Test Item Value Reference Range Interpretation Comments MAGNESIUM (BEAKER) 1.7 mg/dL 1.5-3.0 Specimen slightly (test code = 627) hemolyzed 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 - [id number] ID - [id number] ID - [id number] ID - [id number] 04:37:00 Test Item Value Reference Range Interpretation Comments PHOSPHORUS (BEAKER) 3.0 mg/dL 2.5-4.5 Specimen slightly (test code = 604) hemolyzed 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 - [id number] W/PLT COUNT & AUTO [id number] 04:19:00 Test Item Value Reference Range Interpretation Comments WHITE BLOOD CELL COUNT (BEAKER) 12.8 K/ L 4.0-10.0 H (test code = 775) RED BLOOD CELL COUNT (BEAKER) 4.56 M/ L 4.00-5.00 (test code = 761) HEMOGLOBIN (BEAKER) (test code = 11.5 GM/DL 12.0-15.5 L 410) HEMATOCRIT (BEAKER) (test code = 36.6 % 36.0-46.0 411) MEAN CORPUSCULAR VOLUME (BEAKER) 80.3 fL 82.0-99.0 L (test code = 753) MEAN CORPUSCULAR HEMOGLOBIN 25.2 pg 27.0-33.0 L (BEAKER) (test code = 751) MEAN CORPUSCULAR HEMOGLOBIN CONC 31.4 GM/DL 32.0-36.0 L (BEAKER) (test code = 752) RED CELL DISTRIBUTION WIDTH 15.9 % 12.0-15.0 H (BEAKER) (test code = 412) PLATELET COUNT (BEAKER) (test 276 K/CU MM 150-430 code = 756) MEAN PLATELET VOLUME (BEAKER) 9.3 fL 6.0-11.5 (test code = 754) NUCLEATED RED BLOOD CELLS 0 /100 WBC 0-0 (BEAKER) (test code = 413) NEUTROPHILS RELATIVE PERCENT 84 % (BEAKER) (test code = 429) LYMPHOCYTES RELATIVE PERCENT 9 % (BEAKER) (test code = 430) MONOCYTES RELATIVE PERCENT 7 % (BEAKER) (test code = 431) EOSINOPHILS RELATIVE PERCENT 0 % (BEAKER) (test code = 432) BASOPHILS RELATIVE PERCENT 0 % (BEAKER) (test code = 437) NEUTROPHILS ABSOLUTE COUNT 10.71 K/ L 1.80-8.00 H (BEAKER) (test code = 670) LYMPHOCYTES ABSOLUTE COUNT 1.09 K/ L 1.48-4.50 L (BEAKER) (test code = 414) MONOCYTES ABSOLUTE COUNT (BEAKER) 0.94 K/ L 0.00-1.30 (test code = 415) EOSINOPHILS ABSOLUTE COUNT 0.00 K/ L 0.00-0.50 (BEAKER) (test code = 416) BASOPHILS ABSOLUTE COUNT (BEAKER) 0.03 K/ L 0.00-0.20 (test code = 417) IMMATURE GRANULOCYTES-RELATIVE 0 % 0-0 PERCENT (BEAKER) (test code = 2801) Screen, [id number] 03:07:00 Test Item Value Reference Range Interpretation Comments Preg Test, Ur (test code = 2112-1) Negative [facility], [id number] 03:07:00 Test Item Value Reference Range Interpretation Comments TEST URINE (BEAKER) (test Negative code = 583) POC-Glucose [id number] 23:51:00 Test Item Value Reference Range Interpretation Comments POC-Glucose Meter (test 136 mg/dL 70-110 H : No tified RN/MD: code = 1538) TESTED AT [address] [address]: 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 Location: [facility] OR 12 Procedure: DEEP BRAIN STIMULATOR INS Start: 1145 End: 1300 Fluoro Time: 7.83sec mGy: 54.84 IMPRESSION: Intraoperative fluoroscopic images. Radiologist was not present during the examination.Separate operative report will be issued by the physician performing the procedure. [id number] Interface, Radiology Results Incoming - 12/10/2020 10:26 AM CDT .EXAMINATION: [place] > 1 HOURC-arm fluoroscopy was requested in OR. Location: [facility] OR 12 Procedure: DEEP BRAIN STIMULATOR INS Start: 1145 End: 1300 Fluoro Time: 7.83sec mGy: 54.84IMPRESSION:Intraoperative fluoroscopic images. 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 Subtle left anterior parafalcine hemorrhage is again seen. Subtle left frontal subdural pneumocephalus again seen. The edmondson-white matter differentiation is [...] anterior parafalcine hemorrhage is again seen.Subtle left frontalsubdural pneumocephalus again seen.The edmondson-white matter differentiation is [...] findings are not significantly changed as detailed above.1M2RA D_PS01[facility] HospitalAr[facility] blood [id number] 18:26:00 Test Item Value Reference Range Interpretation Comments pH, arterial (test code 7.35-7.45 = 2744-1) pCO2, arterial (test See_Comment [Autom ated code = 2019-8) message] [...] 2708-6) Lab Interpretation Abnormal (test code = 84572-7) [facility] HospitalGlucose level, [id number] 18:26:00 Test Item Value Reference Range Interpretation Comments Glucose, syringe (test code = 109 mg/dL 65-99 H 2345-7) Lab Interpretation (test code = Abnormal 22437-7) [facility] HospitalHemoglobin, [id number] 18:26:00 Test Item Value Reference Range Interpretation Comments Hemoglobin, syringe (test code = 9.5 g/dL 12.0-16.0 L 718-7) Lab Interpretation (test code = Abnormal 11937-9) [facility] HospitalIonized calcium, [id number] 18:26:00 Test Item Value Reference Range Interpretation Comments Ionized calcium, arterial (test 0.98 mmol/L 1.11-1.32 L code = 37143-7) Lab Interpretation (test code = Abnormal 98811-5) [facility] HospitalLactic acid, [id number] 18:26:00 Test Item Value Reference Range Interpretation Comments Lactic acid, syringe (test code = 0.8 mmol/L 0.5-2.2 18606-1) [facility] HospitalPotassium, [id number] 18:26:00 Test Item Value Reference Range Interpretation Comments Potassium, syringe (test See_Comment L [A utomated message] code = 2007) The system [employer] generated this result transmitted ref erence range: 3.5 - 5. 0 mEq/L. The refe rence range was not u sed to interpret this result as normal/abnor mal. Lab Interpretation (test Abnormal code = 92133-8) [facility] Hospitalodium [facility], [id number] 18:26:00 Test Item Value Reference Range Interpretation Comments Sodium, syringe (test See_Comment [Auto mated message] The code = 2947-0) system which generated this result tra nsmitted reference range : 135 - 148 mEq/L. The refe rence range was not used to interpret this result as normal/abnormal . [facility] HospitalArterial blood gas, [id number] 17:18:42 Test Item Value Reference Range Interpretation Comments pH, arterial (test code 7.35-7.45 H = 2744-1) pCO2, arterial (test See_Comment L [Autom ated message] code = 2019-8) The system ich generated this result transmitted ref erence range: 35 - 45 mmHg. The reference r greer was not used to interpret this result as normal/abnor mal. pO2, arterial (test code See_Comment H [A utomated message] = 2703-7) The system ic h generated this result transmitted ref erence range: 80 - 90 mmHg. The reference r greer was not used to interpret this result as normal/abnor mal. Temperature, Celsius Degrees C (test code = 8310-5) O2 saturation, arterial 99 % 95-100 (test code = 2708-6) pH, arterial corrected (test code = 90272-5) pCO2, arterial corrected mmHg (test code = 35974-3) pO2, arterial corrected mmHg (test code = 04871-8) Base excess, arterial See_Comment [Auto mated message] (test code = 1925-7) The s tem which generated this result transmitted ref erence range: -2 - 2 m Eq/L. The reference r greer was not used to interpret this result as normal/abnor mal. Lab Interpretation (test Abnormal code = 77414-9) [facility] HospitalArterial [id number] 15:36:20Lizzeth Pierson CRNA 11/06/2020 10:36 AMArterial line Patient Location: ORStart Time: 11/06/2020 9:55 AMEnd Time: 11/06/2020 10:02 AM Performed by: anesthesiologistAnesthesiologist: Ramos Reyes, LESLEYuthorized by: Ramos Reyes MD Pre-procedure: patient identified, [...] ABGs and hemodynamic monitoring Anesthesia: Anesthesia: GeneralProcedure Details:Arterial Line placement: Placed post induction Line placement site: RadialLine placement side: LeftArterial line gauge: 20 GNumber of attempts: 1Ultrasound guidance used: No Post-procedure: Post-procedure: Sterile dressing applied Post procedure circulation, sensation, movement: Unable to assess Heidi ent tolerance: Patient tolerated the procedure well with no immediate complicationsCTA Head W Wo [id number] 15:29:00EXAMINATION: CT ANGIOGRAM HEAD W WO CONTRAST COMPARISON: None CLINICAL HISTORY: Intraoperative Evaluation with Leksell Frame COMMENTS: Axial noncontrast and postcontrast CT scan slices the head were obtained. Postprocessing for angiographic evaluation including 3-D reconstructions was obtained. There is an overlying metallic surgical foramen place. CT imaging was performed with iterative reconstruction technique and/or automated exposure control to reduce radiation dose. FINDINGS: Air-fluid level issuspected in the left maxillary sinus. The brain [...] concern, correlation with DSA angiography is recommended. [id number] Interface, Radiology Results Incoming 11/06/2020 10:32 AM CDT EXAMINATION: CT ANGIOGRAM HEAD W WO CONTRASTCOMPARISON: NoneCLINICAL HISTORY: Intraoperative Evaluation with Leksell FrameCOMMENTS: Axial noncontrast and postcontrast CT scan slices the head wereobtained. Postprocessing for angiographic evaluation including 3-D reconstructions [...] clinical concern, correlation with DSA angiography is recommended.[id number] WteftngcDgygmg9119-60-77 13:16:00Lizzeth Pierson CRNA 11/06/2020 10:35 AMAirway Date/Time: 11/06/2020 8:16 AM Location: OR Performed by: BARBARA/Hannah/BARBARA/AA: Lizzeth Pierson CRNAAuthorized by: Ramos Reyes MD Urgency: ElectiveDifficult Airway: No Preoxygenated with 100% O2: Yes C-spine Precautions Maintained Throughout: No Mask Ventilation: Easy maskFinal Airway Type: Endotracheal airwayFinal Endotrach eal Airway: ETTCuffed: Yes Technique Used: Video laryngoscopyDevices/Methods Used in Placement: Intubating styletInsertion Site: OralLaryngoscope Blade/Videolaryngoscope Blade Size: [...] grade 1view, easy intubation. Lips and teeth unchangedECG Pre/Post [id number] 23:39:44 Test Item Value Reference Range Interpretation Comments Ventricular rate (test code = 253) Atrial rate (test code = 255) NC interval (test code = 266) QRSD interval [...] of 04-OCT-2020 11:22,-No significant change was found- [facility] HospitalECG 12 [id number] 03:01:49 Test Item Value Reference Range Interpretation Comments Ventricular rate (test code = 253) Atrial rate (test code = 255) NC interval (test code = 266) QRSD interval [...] (6837) on 10/04/2020 10:01:47 PM [facility] HospitalUrine [id number] 01:20:59 Test Item Value Reference Range Interpretation Comments Urine culture Mixed prem Specimen isolate (test <=10-3 col/cc InformationSp ecimen code = 91351-4) Source: Urin eSpecimen Site: Clean cat [facility] 1 Vw [id number] 22:40:12SINGLE VIEW CHEST, 09/10/2020 Clinical History: Seizure.Technique: [...] and mediastinal contour for technique.4.Normal pulmonary vasculature.5.Intact skeleton.[facility] HospitalREFERRAL OCCUPATIONAL [id number] 00:00:00 Consult received and chart reviewed via [employer]. ?Please refer to progress note for details. Kailyn Collier O.T.R.[phone] [facility] REFERRAL OCCUPATIONAL [id number] 00:00:00Consult received and chart reviewed via [employer]. ?Please refer to progress note for details. Dany [phone] [facility] HospitalEEG (routine)2020-06-28 14:27:01VIDEO-EEG RECORDING AWAKE & DROWSY. Date of Service:06/27/20 Patient Name: Heather Hope of : 1990 Attending MD: Jojo Cruz MD Technique: Recordings were obtainedusing a standard international 10-20 electrode placement supplemented with a single electrocardiogram chest electrode. The recordings were obtained using a reference electrode and reformatted digitallyinto sequential bipolar and referential montages for review. Indication: 29 y.o. right-handed woman with a PMH significant for recurrent seizures and depression referred for video-EEG to evaluate for se izures. Findings: Background: The waking background at rest is continuous, composed of an admixture of largely alpha and beta frequencies, with the expected anterior to posterior voltage and frequency gradient with intermixed faster frequencies anteriorly and a symmetric and well-formed posterior dominant alpha rhythm of 9 hertz, that is reactive to eye opening. With drowsiness, there is the expectedattenuation of the posterior dominant rhythm. Sleep is not captured. Hyperventilation: was not performedPhotic stimulation: was not performed Interictal: occasional sharp waves over the right frontal temporal occipital region that occasionally occur in 3-7 second bursts . Impression:This is an abnormal Video-EEG study characterized by occasional epileptiform discharges over the right frontal temporaloccipital region. No seizures were captured. Jojo Cruz MD ICD-10 Code: R569XR Abdomen Acute Inc [id number] 20:14:14EXAMINATION: XR ABDOMEN ACUTE INC CHEST 1V HISTORY: Nausea vomiting, LMP 1 8 20 COMPARISON: 11/11/2020. IMPRESSION: Support Devices: None. Mediastinum: Normal appearance of cardiomediastinal contours. Lungs: The lungs are clear. No evidence of pleural effusion or pulmonary edema. No pneumothorax. Abdomen: Mild gaseous distention of small and large bowel loops. Overall nonobstructive bowel gas pattern.Moderate colonic stool burden visualized on the level [...] or evidence of portal venous gas. No p athologic calcifications evident.Bones/Other: Unremarkable.[id number] NEED PHYS SKILL,DX OR [id number] 16:40:22Juanita Matthew RN 06/26/2020 10:42 AMMidline Insertion Date/Time: 06/26/2020 10:40 AMPerformed by: Juanita Matthew RNAuthorized by: Kt Fitzgerald MD Consent: Consent obtained: Verbal Consent [...] equipment available: yes Site/side marked: yes Immediately prior to procedure, a time out was called: yes Patient identity confirmed: Verbally with patient, arm band and hospital- assigned identification numberPre-procedure details: Hand hygiene: Hand hygiene [...] 3 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: 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 Location: Right basilic Device Type: Non-valved Catheter Lumen(s): Single lumen Catheter size: 4 FrMidLine Characteristics: Catheter Brand: BioFlo Midline External Catheter Length (cm): 0 Internal Catheter Length (cm): 11 Total Catheter Length (cm): 11 Catheter Lot Number: [id number] Catheter Expiration Date: 1Procedure details: Landmarks identified: yesUltrasound guidance: yes Sterile ultrasound techniques: Sterile gel and sterile probe covers were used Number of attempts: 1 Number of MidLine kits used during procedure: 1 Extra guide wire required?: No Purpose of procedure: Midline Placement Patency/Placement: Flushes without difficulty, ultrasound,flushed with 10 mL normal saline, injection cap placed and positive blood return MidLine placed utilizing ultrasound-guided Modified Seldinger Technique: Yes Dressing/Securement: Catheter securement device and antimicrobial dressing applied Blood Loss Amount: Less than 20 mLCT Abdomen Pelvis W Contrast 2020-06-19 07:50:17EXAMINATION: CT ABDOMEN PELVIS W CONTRAST CLINICAL HISTORY: abd pain gen acute TECHNIQUE: Multiple axial images of the abdomen and pelvis were obtained following intravenous administration of iodinatedcontrast. Sagittal and coronal computerized reformatted images were [...] IMPRESSION: No acute process. Small hiatal hernia. [facility]-UTWJIV6Ej Interface, Radiology Results Incoming- 06/19/2020 1:53 AM CST EXAMINATION: CT ABDOMEN PELVIS W CONTRASTCLINICAL HISTORY: abd pain gen acuteTECHNIQUE: Multiple axial images of theabdomen and pelvis were obtained following intravenous administration [...] nondistended.Osseous structures are intact.IMPRESSION:No acute process.Small hiatal hernia.RM-YTCCHS4SubigoxrqSet[facility] GLUCOSE (AUTOMATED)2020-05-16 17:38:00 Test Item Value Reference Range Interpretation Comments POCT GLU (test code = 3478994932) 68 mg/dL 70-110 L Lab Interpretation (test code = Abnormal 99274-0) [facility] METABOLIC PANEL (NA, K, CL, CO2, GLUCOSE, BUN, CREATININE, CA)2020-05-11 12:11:00 Test Item Value Reference Range Interpretation Comments NA (test code = 135 mmol/L 135-145 3102322855) K (test code = 4.3 mmol/L 3.5-5 0299441123) CL (test code = 103 mmol/L 98-108 1929328105) CO2 TOTAL (test code = 22 mmol/L 23-31 L 4031007539) AGAP (test code = 2-16 2871312569) BUN (test code = 12 mg/dL 7-23 3351566718) GLUCOSE (test code = 96 mg/dL 70-110 3981293085) CREATININE (test code = 0.51 mg/dL 0.5-1.04 2950472289) CALCIUM (test code = 8.5 mg/dL 8.6-10.6 L 0266406493) eGFR Calculation mL/min/1.73m2 (Non-) (test code = 9255650099) eGFR Calculation mL/min/1.73m2 () (test code = 3098118634) LUIS MIGUEL (test code = LUIS MIGUEL) Association of Glomerular Filtration Rate (GFR) and Staging of Kidney Disease* + --+ --+ ------+| GFR (mL/min/1.73 m2) ?| With Kidney Damage ?| ?Without Kidney Damage+ --------+ --------+ +| ?>90 ?| ?Stage one ?| ? Normal ?+ ---+ ---+ -------+| ?60-89 ?| ?Stage two ?| ? Decreased GFR ? + --+ --+ ------+| ?30-59 ?| ?Stage three ?| ? Stage three ? + --+ --+ ------+| ?15-29 ?| ?Stage four ? | ? Stage four ?+ ---+ ---+ -------+| ?<15 (or dialysis) ? ?| ?Stage five ? | ? Stage five ?+ ---+ ---+ -------+ *Each stage assumes the associated GFR level has been in effect for at least three months. ?Stages 1 to 5, with or without kidney disease, indicate chronic kidney disease. Notes: Determination of stages one and two (with eGFR >59mL/min/1.73 m2) requires estimation of kidney damage for at least three months as defined by structural or functional abnormalities of the kidney, manifested by either:Pathological abnormalities or Markers of kidney damage (including abnormalities in the composition of the blood or urine or abnormalities in imaging tests). Lab Interpretation Abnormal (test code = 15590-7) [facility] HospitalMAGN[facility]IUM2020-11-27 12:11:00 Test Item Value Reference Range Interpretation Comments MAGNESIUM (test code = 8604364805) 2.0 mg/dL 1.7-2.4 Lab Interpretation (test code = Normal 54377-8) [facility] HospitalPHOSPHORUS2020-11-27 12:11:00 Test Item Value Reference Range Interpretation Comments PHOSPHORUS (test code = 3496992987) 3.4 mg/dL 2.5-5 Lab Interpretation (test code = Normal 47192-5) [facility] HospitalMisc. Sendout- [id number] 17:21:00 Test Item Value Reference Range Interpretation Comments Miscellaneous Test (test See scanned report code = 3551411042) Performing Lab (test code ARUP = 0439263702) [facility] HospitalBASI METABOLIC PANEL (NA, K, CL, CO2, GLUCOSE, BUN, CREATININE, CA)2020-05-09 10:55:00 Test Item Value Reference Range Interpretation Comments NA (test code = 135 mmol/L 135-145 7444855932) K (test code = 4.2 mmol/L 3.5-5 5788346068) CL (test code = 103 mmol/L 98-108 9567696317) CO2 TOTAL (test code = 24 mmol/L 23-31 3602990684) AGAP (test code = 2-16 5863439961) BUN (test code = 8 mg/dL 7-23 9706832297) GLUCOSE (test code = 94 mg/dL 70-110 5389749149) CREATININE (test code = 0.46 mg/dL 0.5-1.04 L 4062628056) CALCIUM (test code = 8.9 mg/dL 8.6-10.6 8583127296) eGFR Calculation mL/min/1.73m2 (Non-) (test code = 6700123404) eGFR Calculation mL/min/1.73m2 () (test code = 4674858992) LUIS MIGUEL (test code = LUIS MIGUEL) Association of Glomerular Filtration Rate (GFR) and Staging of Kidney Disease* + --+ --+ ------+| GFR (mL/min/1.73 m2) ?| With Kidney Damage ?| ?Without Kidney Damage+ --------+ --------+ +| ?>90 ?| ?Stage one ?| ? Normal ?+ ---+ ---+ -------+| ?60-89 ?| ?Stage two ?| ? Decreased GFR ? + --+ --+ ------+| ?30-59 ?| ?Stage three ?| ? Stage three ? + --+ --+ ------+| ?15-29 ?| ?Stage four ? | ? Stage four ?+ ---+ ---+ -------+| ?<15 (or dialysis) ? ?| ?Stage five ? | ? Stage five ?+ ---+ ---+ -------+ *Each stage assumes the associated GFR level has been in effect for at least three months. ?Stages 1 to 5, with or without kidney disease, indicate chronic kidney disease. Notes: Determination of stages one and two (with eGFR >59mL/min/1.73 m2) requires estimation of kidney damage for at least three months as defined by structural or functional abnormalities of the kidney, manifested by either:Pathological abnormalities or Markers of kidney damage (including abnormalities in the composition of the blood or urine or abnormalities in imaging tests). Lab Interpretation Abnormal (test code = 66540-5) [facility] HospitalMAG[facility]IUM2020-11-25 10:55:00 Test Item Value Reference Range Interpretation Comments MAGNESIUM (test code = 1532514740) 2.0 mg/dL 1.7-2.4 Lab Interpretation (test code = Normal 47465-2) [facility] 10:55:00 Test Item Value Reference Range Interpretation Comments PHOSPHORUS (test code = 3335278566) 3.5 mg/dL 2.5-5 Lab Interpretation (test code = Normal 39825-1) [facility] HospitalCB WITH [id number] 10:30:00 Test Item Value Reference Range Interpretation Comments WBC (test code = See_Comment H [Automated 6690-2) message] The sy stem which generated this result transmitted reference range : 4.30 - 11.10 10*3/?L. The reference range was not used to interpret this result as normal/abnormal . RBC (test code = See_Comment [Automated 789-8) message] The sy stem which generated this result transmitted reference range : 3.93 - 5.25 10*6/?L. The reference range was not used to interpret this result as normal/abnormal . HGB (test code = 11.4 g/dL 11.6-15 L 718-7) HCT (test code = 33.6 % 35.7-45.2 L 4544-3) MCV (test code = 85.1 fL 80.6-95.5 787-2) MCH (test code = 28.9 pg 25.9-32.8 785-6) MCHC (test code = 33.9 g/dL 31.6-35.1 786-4) RDW-SD (test code = 38.3 fL 39-49.9 L 10430-1) RDW-CV (test code = 12.4 % 12-15.5 788-0) PLT (test code = See_Comment [Automated 777-3) message] The sy stem which generated this result transmitted reference range : 166 - 358 10*3/ ?L. The reference r greer was not used to interpret this result as normal/abnormal . MPV (test code = 9.7 fL 9.5-12.9 25214-5) NRBC/100 WBC (test See_Comment [Automat ed code = 0220985804) message] The system which generated this result transmitted reference range : 0.0 - 10.0 /100 WBCs. The refer ence range was not u sed to interpret th is result as normal/abnormal . NRBC x10^3 (test code <0.01 See_Comment [Auto mated = 6930515200) message] The s ystem which generated this result transmitted reference range : 10*3/?L. The reference range was not used to interpret this result as normal/abnormal . GRAN MAT (NEUT) % 79.2 % (test code = 770-8) IMM GRAN % (test code 0.40 % = 4021280188) LYMPH % (test code = 14.4 % 736-9) MONO % (test code = 5.7 % 5905-5) EOS % (test code = 0.0 % 713-8) BASO % (test code = 0.3 % 706-2) GRAN MAT x10^3(ANC) 8.95 10*3/uL 1.88-7.09 H (test code = 0048071190) IMM GRAN x10^3 (test 0.05 10*3/uL 0-0.06 code = 6877073967) LYMPH x10^3 (test code 1.63 10*3/uL 1.32-3.29 = 731-0) MONO x10^3 (test code 0.64 10*3/uL 0.33-0.92 = 742-7) EOS x10^3 (test code = <0.03 0.03-0.39 L 711-2) BASO x10^3 (test code 0.03 10*3/uL 0.01-0.07 = 704-7) Lab Interpretation Abnormal (test code = 00875-5) [facility] METABOLIC PANEL (NA, K, CL, CO2, GLUCOSE, BUN, CREATININE, CA)2020-05-08 12:03:00 Test Item Value Reference Range Interpretation Comments NA (test code = 137 mmol/L 135-145 3972031342) K (test code = 4.1 mmol/L 3.5-5 3102443659) CL (test code = 103 mmol/L 98-108 9180505509) CO2 TOTAL (test code = 24 mmol/L 23-31 8879957535) AGAP (test code = 2-16 4277612351) BUN (test code = 11 mg/dL 7-23 5064621010) GLUCOSE (test code = 98 mg/dL 70-110 2675322953) CREATININE (test code 0.53 mg/dL 0.5-1.04 = 8627560623) CALCIUM (test code = 9.1 mg/dL 8.6-10.6 7648659702) eGFR Calculation mL/min/1.73m2 (Non-) (test code = 8101610454) eGFR Calculation mL/min/1.73m2 () (test code = 0443967223) LUIS MIGUEL (test code = LUIS MIGUEL) Association of Glomerular Filtration Rate (GFR) and Staging of Kidney Disease* + -+ + ---+| GFR (mL/min/1.73 m2) ?| With Kidney Damage ?| ?Without Kidney Damage+ -------+ ------+ ---------+| ?>90 ?| ?Stage one ?| ? Normal ?+ --+ -+ ----+| ?60-89 ?| ?Stage two ?| ? Decreased GFR ? + -+ + ---+| ?30-59 ?| ?Stage three ?| ? Stage three ? + -+ + ---+| ?15-29 ?| ?Stage four ? | ? Stage four ?+ --+ -+ ----+| ?<15 (or dialysis) ? ?| ?Stage five ? | ? Stage five ?+ --+ -+ ----+ *Each stage assumes the associated GFR level has been in effect for at least three months. ?Stages 1 to 5, with or without kidney disease, indicate chronic kidney disease. Notes: Determination of stages one and two (with eGFR >59mL/min/1.73 m2) requires estimation of kidney damage for at least three months as defined by structural or functional abnormalities of the kidney, manifested by either:Pathological abnormalities or Markers of kidney damage (including abnormalities in the composition of the blood or urine or abnormalities in imaging tests). [facility] 12:03:00 Test Item Value Reference Range Interpretation Comments MAGNESIUM (test code = 7125875751) 1.9 mg/dL 1.7-2.4 Lab Interpretation (test code = Normal 05914-6) [facility]2020-[facility]-24 12:03:00 Test Item Value Reference Range Interpretation Comments PHOSPHORUS (test code = 1523846265) 4.0 mg/dL 2.5-5 Lab Interpretation (test code = Normal 46806-3) [facility] WITH [id number] 11:09:00 Test Item Value Reference Range Interpretation Comments WBC (test code = See_Comment [Automated 6690-2) message] The sy stem which generated this result transmitted reference range : 4.30 - 11.10 10*3/?L. The reference range was not used to interpret this result as normal/abnormal . RBC (test code = See_Comment [Automated 789-8) message] The sy stem which generated this result transmitted reference range : 3.93 - 5.25 10*6/?L. The reference range was not used to interpret this result as normal/abnormal . HGB (test code = 12.2 g/dL 11.6-15 718-7) HCT (test code = 36.9 % 35.7-45.2 4544-3) MCV (test code = 86.0 fL 80.6-95.5 787-2) MCH (test code = 28.4 pg 25.9-32.8 785-6) MCHC (test code = 33.1 g/dL 31.6-35.1 786-4) RDW-SD (test code = 39.6 fL 39-49.9 05661-7) RDW-CV (test code = 12.7 % 12-15.5 788-0) PLT (test code = See_Comment [Automated 777-3) message] The sy stem which generated this result transmitted reference range : 166 - 358 10*3/ ?L. The reference r greer was not used to interpret this result as normal/abnormal . MPV (test code = 9.4 fL 9.5-12.9 L 48529-0) NRBC/100 WBC (test See_Comment [Automat ed code = 2505627872) message] The system which generated this result transmitted reference range : 0.0 - 10.0 /100 WBCs. The refer ence range was not u sed to interpret th is result as normal/abnormal . NRBC x10^3 (test code <0.01 See_Comment [Auto mated = 7630330459) message] The s ystem which generated this result transmitted reference range : 10*3/?L. The reference range was not used to interpret this result as normal/abnormal . GRAN MAT (NEUT) % 62.8 % (test code = 770-8) IMM GRAN % (test code 0.40 % = 0661093059) LYMPH % (test code = 25.9 % 736-9) MONO % (test code = 8.0 % 5905-5) EOS % (test code = 2.3 % 713-8) BASO % (test code = 0.6 % 706-2) GRAN MAT x10^3(ANC) 5.27 10*3/uL 1.88-7.09 (test code = 9383131231) IMM GRAN x10^3 (test 0.03 10*3/uL 0-0.06 code = 4481755068) LYMPH x10^3 (test code 2.17 10*3/uL 1.32-3.29 = 731-0) MONO x10^3 (test code 0.67 10*3/uL 0.33-0.92 = 742-7) EOS x10^3 (test code = 0.19 10*3/uL 0.03-0.39 711-2) BASO x10^3 (test code 0.05 10*3/uL 0.01-0.07 = 704-7) Lab Interpretation Abnormal (test code = 72679-2) [facility], [id number] 18:15:00 Test Item Value Reference Range Interpretation Comments PREG URINE (test code Negative = 1329422439) LUIS MIGUEL (test code = LUIS MIGUEL) Less than 20 IU/L. ?If low titer or ectopic is suspected, resubmit specimen in 48-72 hours. [facility] HospitalType and Screen - ONCE [id number] 15:13:02 Test Item Value Reference Range Interpretation Comments ABO & RH (test code O NEGATIVE Performe d at [facility] = 20) Laboratory Serv [facility] s [id number] Free: [phone] A No. [id number] IAT (test code = Negative Performed a t [facility] 1185) Laboratory [facility] s [address]Wtga Free: [phone] A No. [id number] [facility] (NA, K, CL, CO2, GLUCOSE, BUN, CREATININE, CA)2020-05-06 10:44:00 Test Item Value Reference Range Interpretation Comments NA (test code = 136 mmol/L 135-145 8493176817) K (test code = 3.9 mmol/L 3.5-5 4191276953) CL (test code = 102 mmol/L 98-108 0447880976) CO2 TOTAL (test code = 29 mmol/L 23-31 1194080666) AGAP (test code = 2-16 5254137825) BUN (test code = 5 mg/dL 7-23 L 7159949597) GLUCOSE (test code = 102 mg/dL 70-110 2746486044) CREATININE (test code = 0.44 mg/dL 0.5-1.04 L 1397079557) CALCIUM (test code = 8.8 mg/dL 8.6-10.6 9141941566) eGFR Calculation mL/min/1.73m2 (Non-) (test code = 7179703849) eGFR Calculation mL/min/1.73m2 () (test code = 3975500741) LUIS MIGUEL (test code = LUIS MIGUEL) Association of Glomerular Filtration Rate (GFR) and Staging of Kidney Disease* + --+ --+ ------+| GFR (mL/min/1.73 m2) ?| With Kidney Damage ?| ?Without Kidney Damage+ --------+ --------+ +| ?>90 ?| ?Stage one ?| ? Normal ?+ ---+ ---+ -------+| ?60-89 ?| ?Stage two ?| ? Decreased GFR ? + --+ --+ ------+| ?30-59 ?| ?Stage three ?| ? Stage three ? + --+ --+ ------+| ?15-29 ?| ?Stage four ? | ? Stage four ?+ ---+ ---+ -------+| ?<15 (or dialysis) ? ?| ?Stage five ? | ? Stage five ?+ ---+ ---+ -------+ *Each stage assumes the associated GFR level has been in effect for at least three months. ?Stages 1 to 5, with or without kidney disease, indicate chronic kidney disease. Notes: Determination of stages one and two (with eGFR >59mL/min/1.73 m2) requires estimation of kidney damage for at least three months as defined by structural or functional abnormalities of the kidney, manifested by either:Pathological abnormalities or Markers of kidney damage (including abnormalities in the composition of the blood or urine or abnormalities in imaging tests). Lab Interpretation Abnormal (test code = 91587-0) [facility]2020-11-22 10:44:00 Test Item Value Reference Range Interpretation Comments MAGNESIUM (test code = 2766400790) 1.8 mg/dL 1.7-2.4 Lab Interpretation (test code = Normal 78467-3) [facility]2020-11-22 10:44:00 Test Item Value Reference Range Interpretation Comments PHOSPHORUS (test code = 5430348717) 3.8 mg/dL 2.5-5 Lab Interpretation (test code = Normal 81791-9) [facility] WITH [id number] 10:22:00 Test Item Value Reference Range Interpretation Comments WBC (test code = See_Comment [Automated 4890-2) message] The sy stem which generated this result transmitted reference range : 4.30 - 11.10 10*3/?L. The reference range was not used to interpret this result as normal/abnormal . RBC (test code = See_Comment [Automated 249-8) message] The sy stem which generated this result transmitted reference range : 3.93 - 5.25 10*6/?L. The reference range was not used to interpret this result as normal/abnormal . HGB (test code = 11.5 g/dL 11.6-15 L 718-7) HCT (test code = 34.9 % 35.7-45.2 L 4544-3) MCV (test code = 86.8 fL 80.6-95.5 787-2) MCH (test code = 28.6 pg 25.9-32.8 785-6) MCHC (test code = 33.0 g/dL 31.6-35.1 786-4) RDW-SD (test code = 39.4 fL 39-49.9 57237-7) RDW-CV (test code = 12.3 % 12-15.5 788-0) PLT (test code = See_Comment [Automated 777-3) message] The sy stem which generated this result transmitted reference range : 166 - 358 10*3/ ?L. The reference r greer was not used to interpret this result as normal/abnormal . MPV (test code = 9.7 fL 9.5-12.9 14744-0) NRBC/100 WBC (test See_Comment [Automat ed code = 0119216967) message] The system which generated this result transmitted reference range : 0.0 - 10.0 /100 WBCs. The refer ence range was not u sed to interpret th is result as normal/abnormal . NRBC x10^3 (test code <0.01 See_Comment [Auto mated = 6311620418) message] The s ystem which generated this result transmitted reference range : 10*3/?L. The reference range was not used to interpret this result as normal/abnormal . GRAN MAT (NEUT) % 60.5 % (test code = 770-8) IMM GRAN % (test code 0.30 % = 5697279946) LYMPH % (test code = 27.2 % 736-9) MONO % (test code = 9.0 % 5905-5) EOS % (test code = 2.5 % 713-8) BASO % (test code = 0.5 % 706-2) GRAN MAT x10^3(ANC) 4.58 10*3/uL 1.88-7.09 (test code = 3893699022) IMM GRAN x10^3 (test <0.03 0-0.06 code = 0130418920) LYMPH x10^3 (test code 2.06 10*3/uL 1.32-3.29 = 731-0) MONO x10^3 (test code 0.68 10*3/uL 0.33-0.92 = 742-7) EOS x10^3 (test code = 0.19 10*3/uL 0.03-0.39 711-2) BASO x10^3 (test code 0.04 10*3/uL 0.01-0.07 = 704-7) Lab Interpretation Abnormal (test code = 28695-4) [facility] HospitalVancom[facility] Trough Level - Draw immediately prior to the 4TH dose, but, no more than 60 minutes before the 4TH dose. 2020-05-06 03:32:00 Test Item Value Reference Range Interpretation Comments VANCO TROUGH (test code 5.3 ug/mL 10-20 L = 9469124341) LUIS MIGUEL (test code = LUIS MIGUEL) Toxic Range: ?>20 ug/mL 15-20 ug/mL is recommended for severe infection or when Vancomycin MIKO is greater than or equal to 2. Lab Interpretation (test Abnormal code = 84965-7) [facility] HospitalLAB ONLY COVID [id number] 20:53:00COVID DMT InterpretationInterpretation/Recommendations: Molecular NAAT Test Results for Active Infection by SARS-CoV-2 Virus: This patient has tested negative for the SARS-CoV-2 virus that causes COVID-19 illness on two occasions. For approximately two-thirds of patients with a negative test result who were tested only once, the patient is truly negative and has not been infected with the SARS-CoV-2 virus. However, for those tested using a nasopharyngeal sample, each time the PCR test is performed there is approximately a tzy-fr-qvtlr chance the patient had been infected and the result of the test is a "false negative". This occurs because the virus is predominantly in the lung and out of reach of the nasopharyngeal swab. Importantly, this patient has tested negative twice. Especially if there were minimal or no symptoms of the infection, this makes a false negative result less likely for this patient and much more likely that the patient has not been infected with the SARS-CoV-2 virus. If the patient continues to have persistent or worsening symptoms, a repeat NAAT test (PCR, Rapid ID Now, etc.) should be performed. Tests for IgM and/or IgG Antibodies to SARS-CoV-2 Virus: Testing for IgM andIgG antibodies 1-3 weeks after illness onset will indicate whether the patient has produced antibodies to the virus. At this time, it is not known if the production of antibodies indicates whether the patient is immune to future infections with the SARS-CoV-2 virus. Interpretation Result Comments:These interpretation comments are based upon aggregate COVID-19 test results in [facility]. They apply to the following tests offered at [facility] and assume the acceptable specimen type(s) were used: A. Tests for the Identification of SARS-CoV-2 RNA (Molecular NAAT Tests): ? ? ?- SARS-CoV-2 PCR assays including Weston Aptima, Weston Fusion, Arte[employer] RealTime, and NV[employer]icePay Xpert Xpress. ? ? ?- SARS-CoV-2 Rapid ID NOW by the ID NOW assay. ? B. Tests for the Identification of SARS-CoV-2 Antibodies: ? ? ?- Chemiluminescent immunoassays including Access SARS-CoV-2 IgM (DXI 600), VITROS Vpzk-VGSY-BkZ-2 IgG (Vitros 5600 and Vitros 3600), and LttzsaYCIH-XqD-5 IgG (TRANSPLANT CASE MANAGER ?I System). These interpretations are autopopulated into [facility] based on computerized algorithms matching an interpretation code to the patient's set of test results, and a clinical pathologist evaluates the comments for accuracy. However, these comments do not consider testinga patient may have had outside of the [facility] system. If results for COVID-19 infection continue to be negative in the context of a suspected viral respiratory illness, it is possible the patient may havean infection with another respiratory virus. Influenza testing and a respiratory pathogen panel if clinically indicated may be beneficial in this setting. [facility] LABORATORY SERVICESCOVID CfcjhffOXYE-GbE-3 Rapid ID NOW (no units) ? ? Date ? Value ? 05/03/2020 ? Not Detected ? ? ? 11/29/2019 ? Not Detected ? [facility] LABORATORY SERVICESUnMem[facility] Herm[facility] HospitalKEPPRA (LEVETIRACETAM) 2020-05-04 10:53:00 Test Item Value Reference Range Interpretation Comments KEPPRA (test code = 47 ug/mL 12-46 H 1681237500) LUIS MIGUEL (test code = LUIS MIGUEL) Therapeutic range: 12-46 ?g/mL ? ?Toxic: Not well established.Test developed and characteristics determined by [facility] Laboratory Services. Lab Interpretation Abnormal (test code = 62269-3) [facility] (NA, K, CL, CO2, GLUCOSE, BUN, CREATININE, CA)2020-05-04 10:22:00 Test Item Value Reference Range Interpretation Comments NA (test code = 139 mmol/L 135-145 6128562240) K (test code = 3.7 mmol/L 3.5-5 0871047760) CL (test code = 104 mmol/L 98-108 2485657011) CO2 TOTAL (test code = 28 mmol/L 23-31 9728027261) AGAP (test code = 2-16 3793442984) BUN (test code = 14 mg/dL 7-23 9694253997) GLUCOSE (test code = 103 mg/dL 70-110 8858986984) CREATININE (test code = 0.49 mg/dL 0.5-1.04 L 3698799777) CALCIUM (test code = 8.8 mg/dL 8.6-10.6 8399046014) eGFR Calculation mL/min/1.73m2 (Non-) (test code = 2560093043) eGFR Calculation mL/min/1.73m2 () (test code = 0940101094) LUIS MIGUEL (test code = LUIS MIGUEL) Association of Glomerular Filtration Rate (GFR) and Staging of Kidney Disease* + --+ --+ ------+| GFR (mL/min/1.73 m2) ?| With Kidney Damage ?| ?Without Kidney Damage+ --------+ --------+ +| ?>90 ?| ?Stage one ?| ? Normal ?+ ---+ ---+ -------+| ?60-89 ?| ?Stage two ?| ? Decreased GFR ? + --+ --+ ------+| ?30-59 ?| ?Stage three ?| ? Stage three ? + --+ --+ ------+| ?15-29 ?| ?Stage four ? | ? Stage four ?+ ---+ ---+ -------+| ?<15 (or dialysis) ? ?| ?Stage five ? | ? Stage five ?+ ---+ ---+ -------+ *Each stage assumes the associated GFR level has been in effect for at least three months. ?Stages 1 to 5, with or without kidney disease, indicate chronic kidney disease. Notes: Determination of stages one and two (with eGFR >59mL/min/1.73 m2) requires estimation of kidney damage for at least three months as defined by structural or functional abnormalities of the kidney, manifested by either:Pathological abnormalities or Markers of kidney damage (including abnormalities in the composition of the blood or urine or abnormalities in imaging tests). Lab Interpretation Abnormal (test code = 86074-9) [facility] HospitalMagnesium [id number] 10:22:00 Test Item Value Reference Range Interpretation Comments MAGNESIUM (test code = 5662651519) 1.7 mg/dL 1.7-2.4 Lab Interpretation (test code = Normal 33170-5) [facility] HospitalPhosphorus [id number] 10:22:00 Test Item Value Reference Range Interpretation Comments PHOSPHORUS (test code = 5259975183) 5.2 mg/dL 2.5-5 H Lab Interpretation (test code = Abnormal 87208-9) [facility] HospitalCBC with [id number] 10:10:00 Test Item Value Reference Range Interpretation Comments WBC (test code = See_Comment [Automated 6690-2) message] The sy stem which generated this result transmitted reference range : 4.30 - 11.10 10*3/?L. The reference range was not used to interpret this result as normal/abnormal . RBC (test code = See_Comment [Automated 309-8) message] The sy stem which generated this result transmitted reference range : 3.93 - 5.25 10*6/?L. The reference range was not used to interpret this result as normal/abnormal . HGB (test code = 11.6 g/dL 11.6-15 718-7) HCT (test code = 35.3 % 35.7-45.2 L 4544-3) MCV (test code = 87.2 fL 80.6-95.5 787-2) MCH (test code = 28.6 pg 25.9-32.8 785-6) MCHC (test code = 32.9 g/dL 31.6-35.1 786-4) RDW-SD (test code = 40.7 fL 39-49.9 81722-8) RDW-CV (test code = 12.7 % 12-15.5 788-0) PLT (test code = See_Comment [Automated 777-3) message] The sy stem which generated this result transmitted reference range : 166 - 358 10*3/ ?L. The reference r greer was not used to interpret this result as normal/abnormal . MPV (test code = 10.1 fL 9.5-12.9 41621-6) NRBC/100 WBC (test See_Comment [Automat ed code = 7985543142) message] The system which generated this result transmitted reference range : 0.0 - 10.0 /100 WBCs. The refer ence range was not u sed to interpret th is result as normal/abnormal . NRBC x10^3 (test code <0.01 See_Comment [Auto mated = 8952912047) message] The s ystem which generated this result transmitted reference range : 10*3/?L. The reference range was not used to interpret this result as normal/abnormal . GRAN MAT (NEUT) % 60.7 % (test code = 770-8) IMM GRAN % (test code 0.30 % = 9094874341) LYMPH % (test code = 26.8 % 736-9) MONO % (test code = 10.2 % 5905-5) EOS % (test code = 1.6 % 713-8) BASO % (test code = 0.4 % 706-2) GRAN MAT x10^3(ANC) 5.57 10*3/uL 1.88-7.09 (test code = 8958675708) IMM GRAN x10^3 (test 0.03 10*3/uL 0-0.06 code = 9601613560) LYMPH x10^3 (test code 2.47 10*3/uL 1.32-3.29 = 731-0) MONO x10^3 (test code 0.94 10*3/uL 0.33-0.92 H = 742-7) EOS x10^3 (test code = 0.15 10*3/uL 0.03-0.39 711-2) BASO x10^3 (test code 0.04 10*3/uL 0.01-0.07 = 704-7) Lab Interpretation Abnormal (test code = 89534-6) [facility] HospitalCOVID-19 (ID NOW RAPID TESTING)2020-05-04 00:28:00 Test Item Value Reference Range Interpretation Comments SARS-CoV-2 Rapid ID NOW Not Detected Not Detected (test code = 29854-5) LUIS MIGUEL (test code = LUIS MIGUEL) ID NOW COVID-19 Assay is an isothermal nucleic acid amplification test intended for the qualitative detection of nucleic acid from SARS-CoV-2 viral RNA in nasopharyngeal (CUTTING MACHINE OFFBEARER) specimens. It is used under Emergency Use Authorization (EUA) by FDA. The limit of detection (LOD) of the assay is 125 Genome Equivalents/mL. A positive result is indicative of the presence of SARS-CoV-2 RNA. ?Clinical correlation with patient history and other diagnostic [...] specimen for repeat patient testing if clinically indicated.ID NOW COVID-19 Assay is an isothermal nucleic acid amplification test intended for the qualitative detection of nucleic acid from SARS-CoV-2 viral RNA in nasopharyngeal (CUTTING MACHINE OFFBEARER) specimens. It is used under Emergency Use Authorization (EUA) by FDA. The limit of detection (LOD) of the assay is 125 Genome Equivalents/mL. A positive result is indicative of the presence of SARS-CoV-2 RNA. ?Clinical correlation with patient history and other diagnostic [...] for repeat patient testing if clinically indicated. Lab Interpretation Normal (test code = 05252-4) [facility] HospitalElectroencephalogram (EEG) - Duration of test: 20-60 [id number] 00:00:00Date and Time of Procedure: 05/04/2020, 8:46:55- 9:08:01 REPORT TECHNICAL SUMMARY: The EEG was recorded digitally. Electrodes were applied using the International 10/20 System of electrode placement. Eye movements and rhythm strip ECG were monitored on separate channels of the ongoing EEG recording. The occipital dominant rhythm consists of moderate amplitude 8.5-9.5 Hz activity. More anteriorly, similar as well as faster frequencies are present, including low amplitude 18-22 Hz activities in the ant erior leads. There is intermittent focal slowing in the right hemisphere. There are frequent to abundant epileptiform appearing triphasic morphology discharges in the right hemisphere. Drowsiness does not reveal any abnormalities. Sleep is not seen. Photic stimulation does not elicit any abnormalities. IMPRESSION: This EEG is abnormal due to 1) intermittent focal slowing in the right hemisphere, suggestive of focal cerebral dysfunction in the right hemisphere. 2) frequent to abundant epileptiform appearing triphasic morphology discharges in the right hemisphere suggestive of increased potential forepileptogenicity in the region. No electrographic seizures are seen. If clinically indicated longer study or EMU admission can be considered. Lindy Ron MD I personally reviewed and discussed EEG on 05/04/[address] Ron's ?note . ?I actively participated in the decision-making process. ?Please see the resident's note for additional details. Froy Koenig MDDate of interpretation: 05/04/2020[facility]/Se[facility]ure [id number] 15:01:11EPILEPSY MONITORING UNIT REPORT Patient Name: Heather [...] awake and sleep states, abnormal focal and generalizedfeatures, and intenictal and ictal epileptiform activity. Electrical seizure activity was correlatedwith the patients clinical activity recorded on video [...] epileptiform were considered to be myogenic, biologic, mechanical,or electrical artifact in origin. Only computer detected events that have been verified by visual ins pection to be interictal or ictal epileptiform discharges [...] sharp wave discharges were recorded in the rightand left frontal central temporal region. Sleep Recordin.5-3 Hz activity and spike and sharp wave discharges were recorded in the right and left frontal central temporal region. There was an accentuation of this activity during sleep. Hyperventilation: No additional abnormalities elicited. Photic S timulation: No additional abnormalities elicited. Seizures: Seizure #1: This occurred at 16:02 on 03/12/2020. The patient was sitting up in bed and became confused. She had elevation of the arms that were in a tonic posture. She then began to have rotation movements of the right leg followed by flexionextension movements of the right leg. The seizure [...] left frontal central temporal region. ICD-10 Code: W806Ndtcpoml/Seizure monitoring 2020-04-23 15:00:05EPILEPSY MONITORING UNIT REPORT Patient Name: Heather Hope Date of : 1990 Gender: femaleInitial Study Start Date: 03/12/2020Initial Study Start Time: 10:21 Current Study Start Date: 0Current Study Start Time: 00:00 Current Study End Date: 03/14/2020Current Study End Time: 23:59 IndicationSeizures Technical SummaryTechnique: Modified international 10/20 system of EEG electrode placement was used Visual Analysis of Ambulatory EEG Monitoring:This electroencephalogram was recorded simu ltaneously with video throughout the monitoring. The EEG [...] activity. Computer Analysis of EEG Waveforms:The EEG underwentcontinuous computerized digital analysis that consisted of real [...] detected by computer analysis that were not d etermined by visual analysis to be epileptiform were [...] during sleep. Hyperventilation: No additional abnormalities elicited. PhoticStimulation: No additional abnormalities elicited. Seizures: Seizure #1: This occurred at 16:02 on . The patient was sitting up in bed and became confused. She had elevation of the arms that were in a tonic posture. She then began to have rotation movements of the right leg followed by flexion extension movements of the right leg. The seizure lasted approximately 2 minutes. The onset of the s eizure was associated with an attenuation of the background, followed by rhythmic 4-6 Hz activity inthe frontal central regions with higher amplitude on the left side. This evolved and was then symmetric over both hemispheres. 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 One seizure occurred on 03/12/2020 that was clinically a tonic seizure with possible onset in the left frontal central temporal region. ICD-10 Code: T035Flnmhala/Seizure [id number] 14:55:34 EPILEPSY MONITORING UNIT REPORT Patient Name: Heather Hope Date of : 1990 Gender: femaleInitial Study Start Date: 03/12/2020Initial Study Start Time: 10:21 Current Study Start Date: 03/13/2020Current Study Start Time: 00:00 Current Study End Date: 03/13/2020Current Study End Time: 23:59 Indic ationSeizures Technical SummaryTechnique: Modified international 10/20 system of EEG electrode placement was used Visual Analysis of Ambulatory EEG Monitoring:This electroencephalogram was recorded simultaneously with video throughout the monitoring. The EEG was visually inspected and analyzed for brennan acterization of the background activity in all awake and sleep states, abnormal focal and generalized features, and intenictal and ictal epileptiform activity. Electrical seizure activity was correlated with the patients clinical activity recorded on video and video captured clinical events were correlated with simultaneously recorded EEG activity. Computer Analysis of EEG Waveforms:The EEG underwentcontinuous computerized digital analysis that consisted of real [...] Hz activity is present in all regions. 18- 22 Hz activity was present in all regions. 1.5-3 Hz activity and spike and sharp wave discharges were recorded in the right and left frontal central temporal region. Sleep Recordin.5-3 Hz activity and spike and sharp wave discharges were recorded in the right and left frontal central temporal region. There was an accentuation of this activity during sleep. Hyperventilation: No additional abnormalities elicited. PhoticStimulation: No additional abnormalities elicited. Seizures: Seizure #1: [...] background, followed by rhythmic 4-6 Hz activity inthe frontal central regions with higher amplitude on the left side. This evolved and was then symmetric over both hemispheres. 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 One seizure occurred on 03/12/2020 that was clinically a tonic seizure with possible onset in the left frontal central temporal region. ICD-10 Code: P253Tyboufyn/Seizure [id number] 14:45:34EPILEPSY MONITORING UNIT REPORT Patient Name: Heather Hope Date of : 1990 Gender: female I nitial Study Start Date: 03/12/2020Initial Study Start Time: [...] awake and sleep states, abnormal focal and generalizedfeatures, and intenictal and ictal epileptiform activity. Electrical seizure activity was correlatedwith the patients clinical activity recorded on video [...] epileptiform were considered to be myogenic, biologic, mechanical,or electrical artifact in origin. Only computer detected events that have been verified by visual ins pection to be interictal or ictal epileptiform discharges [...] sharp wave discharges were recorded in the rightand left frontal central temporal region. Sleep Recordin.5-3 Hz activity and spike and sharp wave discharges were recorded in the right and left frontal central temporal region. There was an accentuation of this activity during sleep. Hyperventilation: No additional abnormalities elicited. Photic S timulation: No additional abnormalities elicited. Seizures: One seizure [...] findings are consistent with a mild diffuse di sturbance in brain function with focal potentially epileptogenic lesions in the right and left frontal central temporal region. One seizure occurred that was clinically a tonic seizure with possible onset in the left frontal central temporal region. ICD-10 Code: H581ULT (routine)2020-04-05 16:50:53VIDEO-EEG RECORDING AWAKE & ASLEEP. Date of Service:04/05/20 Patient Name: Heather Hope of : 1990 Attending MD: Jojo Cruz MD Technique: Recordings were obtained using a standard international 10-20 electrode placement supplemented with a single electrocardiogram chest electrode. The recordings were obtained using a reference electrode and reformatted digitally intosequential bipolar and referential montages for review. Indication: 29 y.o. right-handed woman with a PMH significant for epilepsy and depression presented to ED with complains of increased seizure freq uency referred for video-EEG to evaluate for seizures. [...] Interictal: frequent bursts of sharpened delta with e mbedded sharp wave discharges maximal over the right frontotemporal region Impression: This is an abnormal Video-EEG study characterized by 1. Mild diffuse slowing of the background, a non-specific indicator of global cerebral dysfunction. 2. Frequent epileptiform discharges over the right frontotemporal region. No seizures are captured. Jojo Cruz MD ICD-10 Code: H016DMOITILJ CARE 2020-04-04 23:48:10BMax gleason MD 04/20/2020 3:37 PMCritical CarePerformed by: Lila ByersAuthorized by: Max Rno MD Critical care provider statement: Critical care time (minutes): 20 Critical care was necessary to treat or prevent imminent or life-threatening deterioration of the following conditions: PRACTICE SPECIALIST failure or compromise Critical care was time spent personally by me on the following activities: Blood draw for specimens, development of treatment plan with patient or surrogate, discussions with consultants, discussions with primary provider, evaluation of patient's response to treatment, examination of patient, review of old charts, re-evaluation of patient's condition, pulse oximetry, orderingand review of radiographic studies, ordering and review of laboratory studies and ordering and performing treatments and interventions Vlad 'yes' if you are taking over critical care for this patient from another provider.: noPET Brain Metabolic [id number] 19:42:07 PROCEDURE: PET BRAIN METABOLIC EVAL INDICATION: R56.9 [...] Remaining bilateral cerebral hemispheres demonstrate preserved cortical graymatter metabolism. Subcortical structures demonstrate normal metabolic activity. There is diffusely reduced cerebellar metabolism. IMPRESSION: 1.Mild hypometabolism in the bilateral mesial temporal lobes is equivocal for epileptogenic foci in a presumed interictal study. 2.Diffuse cerebellar hypometabolism suggests a pharmacologic effect. [facility]-[id number] Interface, Radiology Results [facility] - 03/30/2020 2:45 PM CDT PROCEDURE: [...] lobes marginally more pronounced on the right. Re maining bilateral cerebral hemispheres demonstrate preserved cortical edmondson matter metabolism. Subcortical structures demonstrate normal metabolic activity. There is diffusely reduced cerebellar metabolism. IMPRESSION: 1.Mild hypometabolism in the bilateral mesial temporal lobes is equivocal for epilept ogenic foci in a presumed interictal study.2.Diffuse cerebellar hypometabolism suggests a pharmacologic effect.[facility]-[id number] [facility] / [facility]EN [id number] 05:31:00 Test Item Value Reference Range Interpretation Comments BENZO U (test code = Negative Negative 3661851631) SHAHANA U (test code = Negative Negative 4307339132) AMPHET (test code = Negative Negative 9749515559) THC (test code = Negative Negative 0186576922) METHADONE (test code = Negative Negative 7963717142) Meth U (test code = Negative Negative 5985763274) OPIATES (test code = Negative Negative 7029448413) Cocaine Metabolite (test Negative Negative code = 9155940092) PROPOXY (test code = Negative Negative 7267776053) Tric U (test code = Negative Negative 9018265445) PCP (test code = Negative Negative 0959348033) OXYCOD (test code = Negative Negative 3304703476) LUIS MIGUEL (test code = LUIS MIGUEL) Urine Drug Cutoff Ranges Benzodiazepines: ? ? 150 ng/mLBarbiturates: ?200 ng/mLAmphetamine: ? 500 ng/mLCannabinoids: ?50 ?ng/mLMethadone: ? 200 ng/mLMethamphetamine: ? ? 500 ng/mL Opiates: ? 100 ng/mL or 2000 ng/mLCocaine: ? 150 ng/mLPropoxyphene: ?300 ng/mLTricyclics: ?300 ng/mLOxycodone: ? 100 ng/mLPCP: ? 25 ?ng/mL The results are to be used only for medical (i.e., treatment) purposes. Unconfirmed screening results must not be used for non-medical purposes (e.g., employment testing, legal testing). Lab Interpretation (test Normal code = 04659-4) [facility]00 Test Item Value Reference Range Interpretation Comments APPEARANCE (test code = Hazy Clear A 9610850103) COLOR (test code = Yellow Yellow 6572031789) PH (test code = 4.8-8.0 0188057729) SP GRAVITY (test code = 1.003-1.030 H 2122681228) GLU U QUAL (test code = Normal Normal 8335861510) BLOOD (test code = Negative Negative 6506897032) KETONES (test code = 80 mg/dL Negative A 8151008027) PROTEIN (test code = 30 mg/dL Negative A 2887-8) UROBILIN (test code = Normal Normal 4113758606) BILIRUBIN (test code = Negative Negative 3053066756) NITRITE (test code = Negative Negative 6668205623) LEUK BLAKE (test code = 25/uL Negative A 9019512975) RBC/HPF (test code = See_Comment [Autom ated message] 9909885487) The system [employer] generated this result transmitted ref erence range: 0 - 3 HP F. The reference range was not used to int erpret this result as normal/abnormal . WBC/HPF (test code = See_Comment H [Autom ated message] 4692995618) The system [employer] generated this result transmitted ref erence range: 0 - 5 HP F. The reference range was not used to int erpret this result as normal/abnormal . BACTERIA (test code = Moderate Negative A 8316217051) MUCOUS (test code = Marked Negative LPF A 9833717375) SQ EPITH (test code = HPF 5450902633) Lab Interpretation (test Abnormal code = 04658-7) [facility] (NA, K, CL, CO2, GLUCOSE, BUN, CREATININE, CA)2020-01-17 04:30:00 Test Item Value Reference Range Interpretation Comments NA (test code = 139 mmol/L 135-145 4391019528) K (test code = 3.3 mmol/L 3.5-5 L 5293098798) CL (test code = 105 mmol/L 98-108 3243097449) CO2 TOTAL (test code = 24 mmol/L 23-31 4100031648) AGAP (test code = 2-16 8832531047) BUN (test code = 10 mg/dL 7-23 6888989092) GLUCOSE (test code = 91 mg/dL 70-110 8157623727) CREATININE (test code = 0.51 mg/dL 0.5-1.04 9975413014) CALCIUM (test code = 9.2 mg/dL 8.6-10.6 4086896399) eGFR Calculation mL/min/1.73m2 (Non-) (test code = 7467961860) eGFR Calculation mL/min/1.73m2 () (test code = 6185465962) LUIS MIGUEL (test code = LUIS MIGUEL) Association of Glomerular Filtration Rate (GFR) and Staging of Kidney Disease* + --+ --+ ------+| GFR (mL/min/1.73 m2) ?| With Kidney Damage ?| ?Without Kidney Damage+ --------+ --------+ +| ?>90 ?| ?Stage one ?| ? Normal ?+ ---+ ---+ -------+| ?60-89 ?| ?Stage two ?| ? Decreased GFR ? + --+ --+ ------+| ?30-59 ?| ?Stage three ?| ? Stage three ? + --+ --+ ------+| ?15-29 ?| ?Stage four ? | ? Stage four ?+ ---+ ---+ -------+| ?<15 (or dialysis) ? ?| ?Stage five ? | ? Stage five ?+ ---+ ---+ -------+ *Each stage assumes the associated GFR level has been in effect for at least three months. ?Stages 1 to 5, with or without kidney disease, indicate chronic kidney disease. Notes: Determination of stages one and two (with eGFR >59mL/min/1.73 m2) requires estimation of kidney damage for at least three months as defined by structural or functional abnormalities of the kidney, manifested by either:Pathological abnormalities or Markers of kidney damage (including abnormalities in the composition of the blood or urine or abnormalities in imaging tests). Lab Interpretation Abnormal (test code = 76180-0) [facility] (ALB, T.PRO, BILI T, BU/BC, ALT, AST, ALK PHOS)2020-01-17 04:30:00 Test Item Value Reference Range Interpretation Comments TOTAL BILI (test code = 0705824577) 0.5 mg/dL 0.1-1.1 BILI UNCON (test code = 9151108093) 0.6 mg/dL 0.1-1.1 BILI CONJ (test code = 3227245230) 0.0 mg/dL 0-0.3 T PROTEIN (test code = 7096288984) 7.6 g/dL 6.3-8.2 ALBUMIN (test code = 3075760323) 4.4 g/dL 3.5-5 ALK PHOS (test code = 4968847309) 65 U/L 34-122 ALTv (test code = 1742-6) 14 U/L 5-35 AST(SGOT) (test code = 0568343047) 30 U/L 13-40 Lab Interpretation (test code = Normal 95218-5) [facility] with [id number] 04:21:00 Test Item Value Reference Range Interpretation Comments WBC (test code = See_Comment [Automated 8090-2) message] The sy stem which generated this result transmitted reference range : 4.30 - 11.10 10*3/?L. The reference range was not used to interpret this result as normal/abnormal . RBC (test code = See_Comment [Automated 789-8) message] The sy stem which generated this result transmitted reference range : 3.93 - 5.25 10*6/?L. The reference range was not used to interpret this result as normal/abnormal . HGB (test code = 12.3 g/dL 11.6-15 718-7) HCT (test code = 36.8 % 35.7-45.2 4544-3) MCV (test code = 87.4 fL 80.6-95.5 787-2) MCH (test code = 29.2 pg 25.9-32.8 785-6) MCHC (test code = 33.4 g/dL 31.6-35.1 786-4) RDW-SD (test code = 42.8 fL 39-49.9 82236-1) RDW-CV (test code = 13.6 % 12-15.5 788-0) PLT (test code = See_Comment [Automated 777-3) message] The sy stem which generated this result transmitted reference range : 166 - 358 10*3/ ?L. The reference r greer was not used to interpret this result as normal/abnormal . MPV (test code = 10.2 fL 9.5-12.9 60985-1) NRBC/100 WBC (test See_Comment [Automat ed code = 3155343041) message] The system which generated this result transmitted reference range : 0.0 - 10.0 /100 WBCs. The refer ence range was not u sed to interpret th is result as normal/abnormal . NRBC x10^3 (test code <0.01 See_Comment [Auto mated = 9417607689) message] The s [employer] which generated this result transmitted reference range : 10*3/?L. The reference range was not used to interpret this result as normal/abnormal . GRAN MAT (NEUT) % 59.6 % (test code = 770-8) IMM GRAN % (test code 0.80 % = 7438222234) LYMPH % (test code = 27.7 % 736-9) MONO % (test code = 10.5 % 5905-5) EOS % (test code = 0.7 % 713-8) BASO % (test code = 0.7 % 706-2) GRAN MAT x10^3(ANC) 6.00 10*3/uL 1.88-7.09 (test code = 7275759960) IMM GRAN x10^3 (test 0.08 10*3/uL 0-0.06 H code = 7444533149) LYMPH x10^3 (test code 2.79 10*3/uL 1.32-3.29 = 731-0) MONO x10^3 (test code 1.06 10*3/uL 0.33-0.92 H = 742-7) EOS x10^3 (test code = 0.07 10*3/uL 0.03-0.39 711-2) BASO x10^3 (test code 0.07 10*3/uL 0.01-0.07 = 704-7) Lab Interpretation Abnormal (test code = 19879-0) [facility] 1 [id number] 04:12:45 No acute cardiopulmonary abnormality. Preliminary Report Dictated by Resident: Adriana May MD., have reviewed this study and agree with the abovereport. EXAM: XR CHEST 1 VW HISTORY: SZ COMPARISON: None FINDINGS: The lungs are clear without evidence of consolidation, pleural effusion orpneumothorax. The cardiomediastinal silhouette is normal. No acute osseous abnormality is identified. [facility], Radiant Results Inft User - 01/16/2020 11:13 PM CDTEXAM: XR CHEST 1 VWHISTORY: SZ COMPARISON: NoneFINDINGS:The lungs are clear without evidence of consolidation, pleural effusion orpneumothorax. The cardiomediastinal silhouette is normal. No acute osseous abnormality is identified.IMPRESSIONNo acute cardiopulmonary abnormality.Preliminary Report Dictated by Resident: Adriana Eaton MD., have reviewed this study and agree with the abovereport.[facility] HospitalPO[facility] [id number] 03:58:00 Test Item Value Reference Range Interpretation Comments POCT PREG (test code = 1605) Negative On board controls acceptable with Present C Line (test code = 3574) POCT PREG LOT # (test code = 3575) [id number] POCT PREG TEST DATE (test 03/14/2021 code = 3576) Lab Interpretation (test code = Normal 87221-0) [facility] ABDOMEN PELVIS W [id number] 21:16:16CT Abdomen and Pelvis with intravenous contrast. CLINICAL HISTORY: Abdominal pain. Fever. Nausea, vomiting. Abscesssuspected. DOSE: Up-to-date CT equipment and radiation dose reduction techniques wereemployed. CTDIvol: 8.53 mGy. DLP: 405 mGy-cm. TECHNIQUE : Contiguous axial imaging from the level of the lung basesthrough the pubic symphysis were performed after the uncomplicatedadministration of Omnipaque contrast material. Coronal and sagittalreconstructions were obtained. Auto mA and/or iterative reconstruction wereused to reduce radiation dose. FINDINGS: Comparison is made with 07/10/2018 study. Lower lungs: Clear. No pleural effusion or pericardial effusion. Shortsliding hiatal hernia noted. Liver, Gallbladder and Spleen: Liver is 12.6 cm and spleen is 12 x 3.5 cmin size. No focal lesions detected in the liver or in the spleen. Nocalcified gallstones. Biliary ducts and the pancreatic duct appear ofnormal size. Peritoneum: ?No free air or free fluid. No lymphadenopathy. Pancreas and Adrenals:?Unremarkable pancreas and adrenal glands. Kidneys and Ureters: ?No visible calculi in the renal collecting systems. No hydroureter or hydronephrosis. No enhancing kidney lesions. Vessels: Normal. Retroperitoneum: No abnormal fluid or lymphadenopathy. Bowel: No acute findings. Mild constipation noted.Normal appendix isvisualized. Bladder and Reproductive Organs: Grossly unremarkable unopacified urinarybladder. Cystic lesions in the ovaries noted, none larger than 1.5 cm insize, consistent with physiologic changes. Minimal free fluid in ylxino-ko-bpt is also consistent with physiologic changes. Bones: Unremarkable. Soft tissues: Unremarkable. CONCLUSION:1. No acute findings detected in CT scan of abdomen and pelvis.2. Small cysts in the ovaries and small amount of fluid in the ciz-zh-follzkvwz phy siologic changes. [facility], Radiant Results Inft User - 11/29/2019 4:17 PM CDTCT Abdomen and Pelvis withintravenous contrast.CLINICAL HISTORY: Abdominal pain. Fever. Nausea, vomiting. Abscesssuspected.DOSE: Up-to-date CT equipment and radiation dose reduction techniques wereemployed. CTDIvol: 8.53 mGy. DLP: 405 mGy-cm.TECHNIQUE : Contiguous axial imaging from the level of the lung basesthrough the pubicsymphysis were performed after the uncomplicatedadministration of Omnipaque contrast material. Coronal and sagittalreconstructions were obtained. Auto mA and/or iterative reconstruction wereused to reduce radiation dose.FINDINGS: Comparison is made with 07/10/2018 study.Lower lungs: Clear. No pleural effusion or pericardial effusion. Shortsliding hiatal hernia noted. Liver, Gallbladder and Spleen: Liver is 12.6 cm and spleen is 12 x 3.5 cmin size. No focal lesions detected in the liver or in the spleen. Nocalcified gallstones. Biliary ducts and the pancreatic duct appear ofnormal size.Peritoneum: Nofree air or free fluid. No lymphadenopathy.Pancreas and Adrenals: Unremarkable pancreas and adrenal g lands.Kidneys and Ureters: No visible calculi in the renal collecting systems. No hydroureter or hydronephrosis. No enhancing kidney lesions. Vessels: Normal.Retroperitoneum: No abnormal fluid or lymphadenopathy.Bowel: No acute findings. Mild constipation noted. Normal appendix isvisualized.Bladder and Reproductive Organs: Grossly unremarkable unopacified urinarybladder. Cystic lesions in the ovariesnoted, none larger than 1.5 cm insize, consistent with physiologic changes. Minimal free fluid in lsnsty-et-mpn is also consistent with physiologic changes.Bones: Unremarkable.Soft tissues: Unremarkable.CONCLUSION:1. No acute findings detected in CT scan of abdomen and pelvis.2. Small cysts in the ovaries and small amount of fluid in the iwf-gf-rjnlfcyjq physiologic changes.[facility] HospitalCOVID[facility] (ID NOW RAPID TESTING) 2019-11-29 20:04:00 Test Item Value Reference Range Interpretation Comments SARS-CoV-2 Rapid ID NOW Not Detected Not Detected (test code = 70654-5) LUIS MIGUEL (test code = LUIS MIGUEL) ID NOW COVID-19 Assay is an isothermal nucleic acid amplification test intended for the qualitative detection of nucleic acid from SARS-CoV-2 viral RNA in nasopharyngeal (CUTTING MACHINE OFFBEARER) specimens. It is used under Emergency Use Authorization (EUA) by FDA. The limit of detection (LOD) of the assay is 125 Genome Equivalents/mL. A positive result is indicative of the presence of SARS-CoV-2 RNA. ?Clinical correlation with patient history and other diagnostic [...] for repeat patient testing if clinically indicated. Lab Interpretation Normal (test code = 50407-8) [facility]2020-[facility]-16 19:59:00 Test Item Value Reference Range Interpretation Comments APPEARANCE (test code = Cloudy Clear A 4110697261) COLOR (test code = Yellow Yellow 2753601271) PH (test code = 4.8-8.0 7192492726) SP GRAVITY (test code = 1.003-1.030 9677668167) GLU U QUAL (test code = Normal Normal 4284836601) BLOOD (test code = 3+ Negative A 5590968086) KETONES (test code = Negative Negative 7987826551) PROTEIN (test code = 30 mg/dL Negative A 2887-8) UROBILIN (test code = Normal Normal 2553691353) BILIRUBIN (test code = Negative Negative 0277138656) NITRITE (test code = Negative Negative 0882205295) LEUK BLAKE (test code = Negative Negative 6674674008) RBC/HPF (test code = >182 See_Comment H [Autom ated message] 4429729648) The system whic h generated this result transmitted ref erence range: 0 - 3 HP F. The reference range was not used to int erpret this result as normal/abnormal . WBC/HPF (test code = See_Comment [Autom ated message] 2917097240) The system [employer] generated this result transmitted ref erence range: 0 - 5 HP F. The reference range was not used to int erpret this result as normal/abnormal . BACTERIA (test code = Negative Negative 6257112282) MUCOUS (test code = Slight Negative LPF A 2416519467) SQ EPITH (test code = HPF 1136364996) Lab Interpretation (test Abnormal code = 62404-9) [facility] Danwz3766-06-20 19:53:00 Test Item Value Reference Range Interpretation Comments NA (test code = 137 mmol/L 135-145 2251785888) K (test code = 3.8 mmol/L 3.5-5 8017284774) CL (test code = 107 mmol/L 98-108 6146235152) CO2 TOTAL (test code = 23 mmol/L 23-31 2181170259) AGAP (test code = 2-16 0569322519) BUN (test code = 6 mg/dL 7-23 L 1513517517) GLUCOSE (test code = 89 mg/dL 70-110 6995260718) CREATININE (test code = 0.42 mg/dL 0.5-1.04 L 7839548390) TOTAL BILI (test code = 0.4 mg/dL 0.1-1.0 6349645863) CALCIUM (test code = 9.1 mg/dL 8.6-10.6 0501046820) T PROTEIN (test code = 7.8 g/dL 6.3-8.2 4100493729) ALBUMIN (test code = 4.5 g/dL 3.5-5 4094108549) ALK PHOS (test code = 75 U/L 34-122 3091420180) ALTv (test code = 29 U/L 5-35 1742-6) AST(SGOT) (test code = 32 U/L 13-40 1047909454) eGFR Calculation mL/min/1.73m2 (Non-) (test code = 9424479969) eGFR Calculation mL/min/1.73m2 () (test code = 3127688077) LUIS MIGUEL (test code = LUIS MIGUEL) Association of Glomerular Filtration Rate (GFR) and Staging of Kidney Disease* + --+ --+ ------+| GFR (mL/min/1.73 m2) ?| With Kidney Damage ?| ?Without Kidney Damage+ --------+ --------+ +| ?>90 ?| ?Stage one ?| ? Normal ?+ ---+ ---+ -------+| ?60-89 ?| ?Stage two ?| ? Decreased GFR ? + --+ --+ ------+| ?30-59 ?| ?Stage three ?| ? Stage three ? + --+ --+ ------+| ?15-29 ?| ?Stage four ? | ? Stage four ?+ ---+ ---+ -------+| ?<15 (or dialysis) ? ?| ?Stage five ? | ? Stage five ?+ ---+ ---+ -------+ *Each stage assumes the associated GFR level has been in effect for at least three months. ?Stages 1 to 5, with or without kidney disease, indicate chronic kidney disease. Notes: Determination of stages one and two (with eGFR >59mL/min/1.73 m2) requires estimation of kidney damage for at least three months as defined by structural or functional abnormalities of the kidney, manifested by either:Pathological abnormalities or Markers of kidney damage (including abnormalities in the composition of the blood or urine or abnormalities in imaging tests). Lab Interpretation Abnormal (test code = 32239-8) [place] [facility] HospitalLipase, Mdgin4600-96-55 19:52:00 Test Item Value Reference Range Interpretation Comments LIPASE (test code = 5399863770) 35 U/L 0-220 Lab Interpretation (test code = Normal 06902-0) [facility] HospitalCB WITH [id number] 19:41:00 Test Item Value Reference Range Interpretation Comments WBC (test code = See_Comment [Automated 1938-2) message] The sy stem which generated this result transmitted reference range : 4.30 - 11.10 10*3/?L. The reference range was not used to interpret this result as normal/abnormal . RBC (test code = See_Comment [Automated 692-9) message] The sy stem which generated this result transmitted reference range : 3.93 - 5.25 10*6/?L. The reference range was not used to interpret this result as normal/abnormal . HGB (test code = 12.1 g/dL 11.6-15 718-7) HCT (test code = 36.9 % 35.7-45.2 4544-3) MCV (test code = 84.4 fL 80.6-95.5 787-2) MCH (test code = 27.7 pg 25.9-32.8 785-6) MCHC (test code = 32.8 g/dL 31.6-35.1 786-4) RDW-SD (test code = 47.7 fL 39-49.9 39920-6) RDW-CV (test code = 15.9 % 12-15.5 H 788-0) PLT (test code = See_Comment [Automated 777-3) message] The sy stem which generated this result transmitted reference range : 166 - 358 10*3/ ?L. The reference r greer was not used to interpret this result as normal/abnormal . MPV (test code = 9.4 fL 9.5-12.9 L 20780-7) NRBC/100 WBC (test See_Comment [Automat ed code = 2483231469) message] The system which generated this result transmitted reference range : 0.0 - 10.0 /100 WBCs. The refer ence range was not u sed to interpret th is result as normal/abnormal . NRBC x10^3 (test code <0.01 See_Comment [Auto mated = 4981633714) message] The s ystem which generated this result transmitted reference range : 10*3/?L. The reference range was not used to interpret this result as normal/abnormal . GRAN MAT (NEUT) % 64.7 % (test code = 770-8) IMM GRAN % (test code 0.40 % = 6914846538) LYMPH % (test code = 25.6 % 736-9) MONO % (test code = 7.2 % 5905-5) EOS % (test code = 1.4 % 713-8) BASO % (test code = 0.7 % 706-2) GRAN MAT x10^3(ANC) 4.96 10*3/uL 1.88-7.09 (test code = 2417209115) IMM GRAN x10^3 (test 0.03 10*3/uL 0-0.06 code = 3616761997) LYMPH x10^3 (test code 1.96 10*3/uL 1.32-3.29 = 731-0) MONO x10^3 (test code 0.55 10*3/uL 0.33-0.92 = 742-7) EOS x10^3 (test code = 0.11 10*3/uL 0.03-0.39 711-2) BASO x10^3 (test code 0.05 10*3/uL 0.01-0.07 = 704-7) Lab Interpretation Abnormal (test code = 93272-8) [place] [facility] HospitalPOCT Dizt2650-13-47 19:28:00 Test Item Value Reference Range Interpretation Comments POCT PREG (test code = 1605) negative On board controls acceptable with C present Line (test code = 3574) Lab Interpretation (test code = Normal 72001-1) [facility] HospitalRPR Pohqhkqfjck8578-17-09 16:47:08 Test Item Value Reference Range Interpretation [...] = 06-14-2020 N Expiration Dt) Thyroid Stimulating Epnvivi4170-81-40 06:31:44 Test Item Value Reference Range Interpretation Comments TSH (test code = TSH) 3.830 mIU/mL 0.270-4.200 Lipid Nfixn5717-38-02 06:24:40 Test Item Value Reference Range Interpretation Comments Cholesterol Total 152 mg/dL 0-200 RISK OF HE ART (test code = DISEASEPublishe d by Cholesterol Total) [place] [employer] Laurel lyte Optimal Borderl ine Increased RiskC HOL <200 200-239 >240TRI G <150 150-199 >200HDL Male >60 <40HDL Fema le >60 <50LDL <100 130 -159 >160LDL Near op timal is 100-129 Triglycerides (test 43 mg/dL 9-200 [...] LDL/HDL Ratio=L DL Calc/HDL Chol Urine Drug Cbnfrr0781-68-09 21:53:06 Test Item Value Reference Range Interpretation [...] if desired . Urinalysis with Culture, if xbtslebsh9772-04-85 21:40:53 Test Item Value Reference Range Interpretation [...] Indicated Not Indicated Micro Ind?) Comprehensive Metabolic Afzzc7183-33-62 21:34:15 Test Item Value Reference Range Interpretation [...] = A/G 1.6 ratio N Ratio) Alcohol Bwtrq6948-54-10 21:34:15 Test Item Value Reference Range Interpretation Comments Ethanol Level (test <0.00 g/dL 0.00-0.01 Intoxica vandana 0.080 g/dL code = Ethanol or more Level) Ethanol Inst (test <0 N code = Ethanol Inst) Comprehensive Metabolic Ayovc2830-50-24 21:34:15 Test Item Value Reference Range Interpretation [...] ag e have not been validated by [facility] MDRD study and should be interpreted wit h caution. eGFR R esult Interpretation: eGFR > or = 60 is in the Normal RangeeGF R < 60 may mean kid shannan diseaseeGFR < 1 5 may mean kidney failure Rang es recommended by the National Kidney Foundation, http://nkdep.ni h.gov Comprehensive Metabolic Bdozq5516-87-18 21:34:15 Test Item Value Reference Range Interpretation [...] ag e have not been validated by [facility] MDRD study and should be [...] ag e have not been validated by [facility] MDRD study and should be interpreted wit h caution. eGFR R esult Interpretation: eGFR > or = 60 is in the Normal RangeeGF R < 60 may mean kid shannan diseaseeGFR < 1 5 may mean kidney failure Rang es recommended by the National Kidney Foundation, http://nkdep.ni h.gov Automated Vjpjsoiutfde8664-07-71 21:15:24 Test Item Value Reference Range Interpretation Comments Neutro Auto (test code = Neutro 54.3 % 36.0-70.0 Auto) Lymph Auto (test code = Lymph Auto) 32.3 % 12.0-44.0 [place] Auto (test code = [place] Auto) 11.1 % 0.0-11.0 H Eos, Auto (test code = Eos, Auto) 1.3 % 0.0-7.0 Basophil Auto (test code = Basophil 0.7 % 0.0-2.0 Auto) Neutro Absolute (test code = Neutro 6.2 x10 1.6-7.4 Absolute) Lymph Absolute (test code = Lymph 3.71 x10 .50-4.60 Absolute) [place] Absolute (test code = [place] 1.28 x10 .00-1.20 H Absolute) Eos Absolute (test code = Eos 0.15 x10 0.00-0.74 Absolute) Baso Absolute (test code = Baso 0.08 x10 0.00-0.21 Absolute) IG Fyifi9116-30-15 21:15:24 Test Item Value Reference Range Interpretation Comments IG (test code = IG) 0.3 % 0.0-5.0 IG Abs (test code = IG Abs) 0 x10 N Complete Blood Count with Attgxixztbpd8620-24-57 21:15:24 Test Item Value Reference Range Interpretation [...] = IPF) 0 % N HCG Qualitative Thuyp5811-86-72 20:45:17 Test Item Value Reference Range Interpretation Comments hCG Ur (test code = Negative If the r esult is hCG Ur) "Negative" in p atients suspected to be , recom mend retest with a s ample obtained 48 to 72 hours later, or by ordering a quantitative as say. If the result is "Borderline" te sting should be repea vandana in 48 to 72 hours. Lot # (test code = [id number] N Lot #) Expiration Dt (test 2020-12-12 N code = Expiration Dt) Neg Control (test Negative code = Neg Control) Pos Control (test Positive code = Pos Control) Internal QC (test Acceptable code = Internal QC) RPR Dznfztmmlwe5729-33-44 12:07:58 Test Item Value Reference Range Interpretation [...] = 04-14-2020 N Expiration Dt) Thyroid Stimulating Eagazip3417-28-09 07:59:52 Test Item Value Reference Range Interpretation Comments TSH (test code = TSH) 0.717 mIU/mL 0.270-4.200 Lipid Ecali3315-10-27 07:52:46 Test Item Value Reference Range Interpretation Comments Cholesterol Total 141 mg/dL 0-200 RISK OF HE ART (test code = DISEASEPublishe d by Cholesterol Total) [place] [employer] Laurel lyte Optimal Borderl ine Increased RiskC HOL <200 200-239 >240TRI G <150 150-199 >200HDL Male >60 <40HDL Fema le >60 <50LDL <100 130 -159 >160LDL Near op timal is 100-129 Triglycerides (test 59 mg/dL 9-200 [...] LDL/HDL Ratio=L DL Calc/HDL Chol Urine Drug Vuzght2002-14-85 15:27:40 Test Item Value Reference Range Interpretation [...] matory test if desired . Comprehensive Metabolic Xqmtr1018-31-71 15:15:20 Test Item Value Reference Range Interpretation [...] A/G 1.9 ratio N Ratio) Comprehensive Metabolic Iqmak2786-10-04 15:15:20 Test Item Value Reference Range Interpretation [...] the National Kidney Foundation, http://nkdep.ni h.gov Alcohol Mdtbx3388-45-85 15:15:20 Test Item Value Reference Range Interpretation Comments Ethanol Level (test <0.00 g/dL 0.00-0.01 Intoxica vandana 0.080 g/dL code = Ethanol or more Level) Ethanol Inst (test <0 N code = Ethanol Inst) Comprehensive Metabolic Iasoa6690-43-36 15:15:20 Test Item Value Reference Range Interpretation [...] the National Kidney Foundation, http://nkdep.ni h.gov Urinalysis Okkaerwqzds9949-34-64 15:11:20 Test Item Value Reference Range Interpretation Comments UA WBC (test code = UA WBC) 6-10 0-5 A UA RBC (test code = UA RBC) 0-5 0-5 UA Bacteria (test code = UA Moderate A Bacteria) UA Squam Epithelial (test code = UA TNTC A Squam Epithelial) UA Mucous (test code = UA Mucous) Few A Urinalysis with Microscopic if yjzxyzjww2879-36-34 14:42:58 Test Item Value Reference Range Interpretation [...] GL_SJM_UA_MICRO _IN D Complete Blood Count with Rvzpnncfzanx3176-11-76 14:37:26 Test Item Value Reference Range Interpretation [...] code = IPF) 0 % N Automated Qxwzjzohssas5676-70-46 14:37:26 Test Item Value Reference Range Interpretation Comments Neutro Auto (test code = Neutro 65.8 % 36.0-70.0 Auto) Lymph Auto (test code = Lymph Auto) 25.5 % 12.0-44.0 [place] Auto (test code = [place] Auto) 7.3 % 0.0-11.0 Eos, Auto (test code = Eos, Auto) 0.7 % 0.0-7.0 Basophil Auto (test code = Basophil 0.5 % 0.0-2.0 Auto) Neutro Absolute (test code = Neutro 6.0 x10 1.6-7.4 Absolute) Lymph Absolute (test code = Lymph 2.34 x10 .50-4.60 Absolute) [place] Absolute (test code = [place] .67 x10 .00-1.20 Absolute) Eos Absolute (test code = Eos 0.06 x10 0.00-0.74 Absolute) Baso Absolute (test code = Baso 0.05 x10 0.00-0.21 Absolute) IG Vrday8512-90-61 14:37:26 Test Item Value Reference Range Interpretation Comments IG (test code = IG) 0.2 % 0.0-5.0 IG Abs (test code = IG Abs) 0 x10 N HCG Qualitative Rplwp0166-13-41 14:34:08 Test Item Value Reference Range Interpretation Comments hCG Ur (test code = Negative If the r esult is hCG Ur) "Negative" in p atients suspected to be , recom mend retest with a s ample obtained 48 to 72 hours later, or by ordering a quantitative as say. If the result is "Borderline" te sting should be repea vandana in 48 to 72 hours. Lot # (test code = [id number] N Lot #) Expiration Dt (test 2020-03-14 N code = Expiration Dt) Neg Control (test Negative code = Neg Control) Pos Control (test Positive code = Pos Control) Internal QC (test Acceptable code = Internal QC) DRUGS OF ABUSE SCREEN AT1184-63-14 17:11:00 Test Item Value Reference Range Interpretation [...] = [place]) concentrati on: 300 ng/mL URINALYSIS XSGHTMIH6984-28-28 17:08:00 Test Item Value Reference Range Interpretation [...] (test code = MOD NONE BACU) URINALYSIS RAJJSYQF2932-54-76 17:00:00 Test Item Value Reference Range Interpretation [...] (test code = NONE BACU) HCG SERUM [id number] 16:52:00 Test Item Value Reference Range Interpretation Comments HCG SERUM QUAL (test code = HCGQL) NEGATIVE NEGATIVE - CT HEAD/BRAIN W/O [id number] 16:51:00 FAX: Theresa Fields MD [place]: St: REG Name: [facility] : 1990 Age/S: 28/F [address] [facility] Unit: [id number] [place]: [place] [id number] Acct: [id number] Dis Date: Status: REG ER PHONE #: [phone] Exam Date: 02/23/2019 1642 FAX #: [phone] Reason: SEIZURE EXAMS: CPT CODE: [id number] CT HEAD/BRAIN W/O CONT 39562 Dictation location: U19. CT HEAD WITHOUT CONTRAST. HISTORY: SEIZURE COMPARISON: No comparison is available. TECHNIQUE: Axial CT images of the head were obtained with coronal and/or sagittal reformatted views. Automated exposure control, iterative reconstruction technique, and/or adjustment of mA and/or kV according to patient's sizewas utilized for radiation dose reduction. IV CONTRAST: None. FINDINGS: No intracranial abnormalities such as hemorrhage, mass, mass effect, hydrocephalus, midline shift, extra-axial fluid collection or secondary signs of an acute infarct are noted. The calvarium and skull base are intact. The visual ized paranasal sinus and mastoid air cells are clear. IMPRESSION: No evidence of acute intracranial abnormality. at 1651 Reported and signed by: Mark Morrison M.D. CC: Theresa Fields MD Technologist: HEATHER DICKSON Trnscrd Dt/Tm: 02/23/2019 (1651) AngeliqueSP17 Orig Print D/T: S: 02/23/2019 (3134 PAGE 1 Signed ReportBASIC METABOLIC [id number] 16:31:00 Test Item Value Reference Range Interpretation [...] CA) 8.8 mg/dl 8.0-10.5 N BASIC METABOLIC [id number] 16:26:00 Test Item Value Reference Range Interpretation [...] code = CA) mg/dl 8.0-10.5 CBC W/AUTO [id number] 16:15:00 Test Item Value Reference Range Interpretation [...] code = BA#) 0.1 K/mm3 0.0-0.2 N TEST, OLBWK1756-04-05 07:10:00 Test Item Value Reference Range Interpretation Comments PREG SERUM (test code Negative = 9783582357) LUIS MIGUEL (test code = LUIS MIGUEL) Less than 10 IU/L.?If low titer or ectopic is suspected, resubmit specimen in 48-72 hours. [facility] HospitalPHENYTOIN [id number] 07:03:00 Test Item Value Reference Range Interpretation Comments PHENY FREE (test code 1.7 ug/mL 1-2 = 1871461261) LUIS MIGUEL (test code = LUIS MIGUEL) Toxic Range:? Greater than 2.5 ug/mL Test developed and characteristics determined by [facility] Laboratory Services. Lab Interpretation Normal (test code = 49488-3) [place] [facility] HospitalBasi Metabolic Panel (NA, K, CL, CO2, GLUCOSE, BUN, CREATININE, CA)2019-02-04 06:45:00 Test Item Value Reference Range Interpretation Comments NA (test code = 141 mmol/L 135-145 9798090174) K (test code = 3.2 mmol/L 3.5-5 L 5521191509) CL (test code = 106 mmol/L 98-108 8516626384) CO2 TOTAL (test code = 24 mmol/L 23-31 6446055239) AGAP (test code = 2-16 7730451703) BUN (test code = 9 mg/dL 7-23 0898703847) GLUCOSE (test code = 91 mg/dL 70-110 8629165414) CREATININE (test code = 0.50 mg/dL 0.5-1.04 3432448549) CALCIUM (test code = 9.3 mg/dL 8.6-10.6 0271175113) eGFR Calculation mL/min/1.73m2 (Non-) (test code = 1020891728) eGFR Calculation mL/min/1.73m2 () (test code = 1939706084) LUIS MIGUEL (test code = LUIS MIGUEL) Association of Glomerular Filtration Rate (GFR) and Staging of Kidney Disease*+ + + +| GFR (mL/min/1.73 m2)?| With Kidney Damage?|?Without Kidney Damage+ --------+ --------+ +|?>90?|?S tage one?|? Normal?+ ---------+ ---------+ +|?60-89? |?Stage two?|? Decreased GFR? + --+ --+ ------+|?30-59?|?Stage three?|? Stage three?? + --+ --+ ------+|?15-29?|?Stage four? |? Stage four?+ -------+ -------+ +|?<15 (or dialysis)?|?Stage five? |? Stage five?+ -------+ -------+ +*Each stage assumes the associated GFR level has been in effect for at least three months.?Stages 1 to 5, with or without kidney disease, indicate chronic kidney disease.Notes: Determination of stages one and two (with eGFR >59mL/min/1.73 m2) requires estimation of kidney damage for at least three months as defined by structural or functional abnormalities of the kidney, manifested by either:Pathological abnormalities or Markers of kidney damage (including abnormalities in the composition of the blood or urine or abnormalities in imaging tests). Lab Interpretation Abnormal (test code = 93881-8) [place] [facility] HospitalMagnesium Nnddq0424-15-76 06:45:00 Test Item Value Reference Range Interpretation Comments MAGNESIUM (test code = 1457183213) 2.1 mg/dL 1.7-2.4 Lab Interpretation (test code = Normal 32456-5) [facility] HospitalETHANOL2019-08-23 06:31:00 Test Item Value Reference Range Interpretation Comments ALCOHOL (test code = <10 mg/dL 3841282598) LUIS MIGUEL (test code = Toxic Greater than or LUIS MIGUEL) equal to 80 mg/dL.NOTE: Whole blood values are approximately 10% to 15% lower than serum and plasma. [place] [facility] HospitalKEPPRA (LEVETIRACETAM)2019-02-04 06:21:00 Test Item Value Reference Range Interpretation Comments KEPPRA (test code = 19 ug/mL 12-46 4527044771) LUIS MIGUEL (test code = LUIS MIGUEL) Therapeutic range: 12-46 ?g/mL?Toxic: Not well established.Test developed and characteristics determined by [facility] Laboratory Services. Lab Interpretation Normal (test code = 81985-9) [place] [facility] HospitalCREATINE HIQYCF5822-26-03 06:08:00 Test Item Value Reference Range Interpretation Comments CK (test code = 9989576574) 71 U/L 33-194 Lab Interpretation (test code = Normal 08244-0) [place] [facility] HospitalPHENYTOIN2019-08-23 06:08:00 Test Item Value Reference Range Interpretation Comments PHENYTOIN (test code = 23.5 ug/mL 10-20 H 3415720394) LUIS MIGUEL (test code = LUIS MIGUEL) Toxic Range:? 0-3 Months? Greater than 14 ug/mL? 3 Months - 150 Years? Greater than 20 ug/mL Lab Interpretation (test Abnormal code = 86457-1) [place] [facility] HospitalHEPATIC FUNCTION PANEL (89314) (ALB,T.PRO,BILI T,BU/BC,ALT,AST,ALK PHOS)2019-02-04 06:01:00 Test Item Value Reference Range Interpretation Comments TOTAL BILI (test code = 5032161156) 0.3 mg/dL 0.1-1.1 BILI UNCON (test code = 2948904941) 0.2 mg/dL 0.1-1.1 BILI CONJ (test code = 5503569485) 0.0 mg/dL 0-0.3 T PROTEIN (test code = 9536927655) 8.2 g/dL 6.3-8.2 ALBUMIN (test code = 1989600341) 4.7 g/dL 3.5-5 ALK PHOS (test code = 9923534043) 87 U/L 34-122 ALT(SGPT) (test code = 9012833079) 80 U/L 9-51 H AST(SGOT) (test code = 3051218002) 53 U/L 13-40 H Lab Interpretation (test code = Abnormal 03432-6) [place] [facility] HospitalCBC WITH [id number] 05:41:00 Test Item Value Reference Range Interpretation Comments WBC (test code = See_Comment [Automated 0625-2) message] The sy stem which generated this result transmitted reference range : 4.30 - 11.10 10*3/?L. The reference range was not used to interpret this result as normal/abnormal . RBC (test code = See_Comment [Automated 789-8) message] The sy stem which generated this result transmitted reference range : 3.93 - 5.25 10*6/?L. The reference range was not used to interpret this result as normal/abnormal . HGB (test code = 9.7 g/dL 11.6-15 L 718-7) HCT (test code = 32.1 % 35.7-45.2 L 4544-3) MCV (test code = 73.8 fL 80.6-95.5 L 787-2) MCH (test code = 22.3 pg 25.9-32.8 L 785-6) MCHC (test code = 30.2 g/dL 31.6-35.1 L 786-4) RDW-SD (test code = 40.5 fL 39-49.9 91776-6) RDW-CV (test code = 15.1 % 12-15.5 788-0) PLT (test code = See_Comment [Automated 777-3) message] The sy stem which generated this result transmitted reference range : 166 - 358 10*3/ ?L. The reference r greer was not used to interpret this result as normal/abnormal . MPV (test code = 10.3 fL 9.5-12.9 95185-2) NRBC/100 WBC (test See_Comment [Automat ed code = 1345687316) message] The system which generated this result transmitted reference range : 0.0 - 10.0 /100 WBCs. The refer ence range was not u sed to interpret th is result as normal/abnormal . NRBC x10^3 (test code <0.01 See_Comment [Auto mated = 3787841965) message] The s ystem which generated this result transmitted reference range : 10*3/?L. The reference range was not used to interpret this result as normal/abnormal . GRAN MAT (NEUT) % 58.2 % (test code = 770-8) IMM GRAN % (test code 0.40 % = 4980340476) LYMPH % (test code = 31.2 % 736-9) MONO % (test code = 8.2 % 5905-5) EOS % (test code = 1.5 % 713-8) BASO % (test code = 0.5 % 706-2) GRAN MAT x10^3(ANC) 6.09 10*3/uL 1.88-7.09 (test code = 1727974053) IMM GRAN x10^3 (test 0.04 10*3/uL 0-0.06 code = 3739037749) LYMPH x10^3 (test code 3.27 10*3/uL 1.32-3.29 = 731-0) MONO x10^3 (test code 0.86 10*3/uL 0.33-0.92 = 742-7) EOS x10^3 (test code = 0.16 10*3/uL 0.03-0.39 711-2) BASO x10^3 (test code 0.05 10*3/uL 0.01-0.07 = 704-7) Lab Interpretation Abnormal (test code = 81330-7) [place] [facility] HospitalCT HEAD WO [id number] 04:04:41 No acute intracranial abnormality. * * * * * * * * ORIGINAL REPORT * * * * * * * *EXAM: CT HEAD WO CONTRAST HISTORY: Breakthrough seizures TECHNIQUE: CT of the head was performed without intravenous contrast.Sagittal and coronal reformats were generated. COMPARISON: None. FINDINGS: The ventricles andsulci are normal in caliber and configuration. Nohydrocephalus, midline shift or pathological extra-axial fluid collectionis present. The basal cisterns are unremarkable. There is no acute intracranialhemorrhage or significant mass effect. Noparenchymal attenuation abnormality. The edmondson-white matter differentiationis preserved. The mastoid air cells and paranasal air sinuses are clear. The calvariumand central skull base are unremarkable. [facility], Radiant Results Inft User - 02/03/2019 11:06 PM CDT* * * * * * ORIGINAL REPORT * * * * * * * *EXAM: CT HEAD WO CONTRASTHISTORY: Breakthrough seizures TECHNIQUE: CT of the head was performed without intravenous contrast.Sagittal and coronal reformats were generated.COMPARISON: None.FINDINGS: The ventricles and sulci are normal in caliber and configuration. Nohydrocephalus, midline shift or pathological extra- axial fluid collectionis present. The basalcisterns are unremarkable.There is no acute intracranial hemorrhage or significant mass effect. Noparenchymal attenuation abnormality. The edmondson-white matter differentiationis preserved.The mastoid air cells and paranasal air sinuses are clear. The calvariumand central skull base are unremarkable.IMPRESSIONNo acute intracranial abnormality. [place] [facility] HospitalPhosphorus Cpzig1866-74-86 02:08:00 Test Item Value Reference Range Interpretation Comments PHOSPHORUS (test code = 7845476575) 4.3 mg/dL 2.5-5 Lab Interpretation (test code = Normal 50574-4) [place] [facility] HospitalADC / [facility] - DRUG SCREEN [id number] 23:26:00 Test Item Value Reference Range Interpretation Comments BENZO U (test code = Negative Negative 0522760468) SHAHANA U (test code = Negative Negative 5897173885) AMPHET (test code = Negative Negative 3694509554) THC (test code = Negative Negative 7489490026) METHADONE (test code = Negative Negative 5019565972) Meth U (test code = Negative Negative 2365506583) OPIATES (test code = Negative Negative 8437963418) Cocaine Metabolite (test Negative Negative code = 0087023050) PROPOXY (test code = Negative Negative 0472523576) Tric U (test code = Negative Negative 0765678159) PCP (test code = Negative Negative 9162015409) OXYCOD (test code = Negative Negative 8411567754) LUIS MIGUEL (test code = LUIS MIGUEL) Urine Drug Cutoff RangesBenzodiazepines : ? ? 150 ng/mLBarbiturates: ?200 ng/mLAmphetamine: ? 500 ng/mLCannabinoids: ?50?ng/mLMethadone: ? 200 ng/mLMethamphetamine: ? 500 ng/mL Opiates: ? 100 ng/mL or 2000 ng/mLCocaine: ? 150 ng/mLPropoxyphene:?30 0 ng/mLTricyclics:?300 ng/mLOxycodone:? 100 ng/mLPCP:? 25?ng/mLThe results are to be used only for medical (i.e., treatment) purposes. Unconfirmed screening results must not be used for non-medical purposes (e.g., employment testing, legal testing). Lab Interpretation (test Normal code = 17045-0) [facility]26[facility]00 Test Item Value Reference Range Interpretation Comments MAGNESIUM (test code = 2933783404) 2.3 mg/dL 1.7-2.4 Lab Interpretation (test code = Normal 25633-3) [facility]OL[facility] PANEL (25367)2019-02-03 23:26:00 Test Item Value Reference Range Interpretation Comments NA (test code = 142 mmol/L 135-145 4075836692) K (test code = 3.8 mmol/L 3.5-5 4225560348) CL (test code = 106 mmol/L 98-108 6741600644) CO2 TOTAL (test code = 24 mmol/L 23-31 1270608348) AGAP (test code = 2-16 2093131386) BUN (test code = 8 mg/dL 7-23 3111856205) GLUCOSE (test code = 91 mg/dL 70-110 4236217402) CREATININE (test code = 0.45 mg/dL 0.5-1.04 L 3295805358) TOTAL BILI (test code = 0.4 mg/dL 0.1-1.4 2586297555) CALCIUM (test code = 9.0 mg/dL 8.6-10.6 1616871504) T PROTEIN (test code = 8.2 g/dL 6.3-8.2 6117863576) ALBUMIN (test code = 4.7 g/dL 3.5-5 7569641251) ALK PHOS (test code = 85 U/L 34-122 7282509008) ALT(SGPT) (test code = 70 U/L 9-51 H 9649724902) AST(SGOT) (test code = 49 U/L 13-40 H 6440996699) eGFR Calculation mL/min/1.73m2 (Non-) (test code = 2217007417) eGFR Calculation mL/min/1.73m2 () (test code = 2526450626) LUIS MIGUEL (test code = LUIS MIGUEL) Association of Glomerular Filtration Rate (GFR) and Staging of Kidney Disease*+ + + +| GFR (mL/min/1.73 m2)?| With Kidney Damage?|?Without Kidney Damage+ --------+ --------+ +|?>90?|?S tage one?|? Normal?+ ---------+ ---------+ +|?60-89? |?Stage two?|? Decreased GFR? + --+ --+ ------+|?30-59?|?Stage three?|? Stage three? + --+ --+ ------+|?15-29?|??Sarbjitg yadira four? |? Stage four?+ -------+ -------+ +|?<15 (or dialysis)?|?Stage five? |? Stage five?+ -------+ -------+ +*Each stage assumes the associated GFR level has been in effect for at least three months.?Stages 1 to 5, with or without kidney disease, indicate chronic kidney disease.Notes: Determination of stages one and two (with eGFR >59mL/min/1.73 m2) requires estimation of kidney damage for at least three months as defined by structural or functional abnormalities of the kidney, manifested by either:Pathological abnormalities or Markers of kidney damage (including abnormalities in the composition of the blood or urine or abnormalities in imaging tests). Lab Interpretation Abnormal (test code = 82134-8) [facility]2019-[facility] 23:18:00 Test Item Value Reference Range Interpretation Comments APPEARANCE (test code = Clear Clear 6948758391) COLOR (test code = Yellow Yellow 8499549096) PH (test code = 4.8-8.0 0954372408) SP GRAVITY (test code = >=1.030 1.003-1.030 9025842609) GLU U QUAL (test code = Negative Negative 8018928660) BLOOD (test code = Large Negative A 6921944513) KETONES (test code = Negative Negative 1107288190) PROTEIN (test code = Negative Negative 2887-8) UROBILIN (test code = 0.2 mg/dL See_Comment [Auto mated message] 9918742728) The system [employer] generated this result transmit vandana reference range : 0-1.0 mg/dL. Th e reference range was not used to interpret this result as normal/abnormal . BILIRUBIN (test code = Negative Negative 8135870105) NITRITE (test code = Negative Negative 2802283083) LEUK BLAKE (test code = Negative Negative 9286572011) RBC/HPF (test code = See_Comment H [Autom ated message] 9177907492) The system [employer] generated this result transmit vandana reference range : 0 - 3 HPF. The refe rence range was not u sed to interpret th is result as normal/abnormal . WBC/HPF (test code = See_Comment [Autom ated message] 2992962559) The system whic h generated this result transmit vandana reference range : 0 - 5 HPF. The refe rence range was not u sed to interpret th is result as normal/abnormal . BACTERIA (test code = Moderate Negative A 4654423802) MUCOUS (test code = Slight Negative LPF A 4185097799) SQ EPITH (test code = HPF 9046940742) Lab Interpretation (test Abnormal code = 51921-9) [facility] WITH [id number] 23:07:00 Test Item Value Reference Range Interpretation Comments WBC (test code = See_Comment [Automated 6690-2) message] The sy stem which generated this result transmitted reference range : 4.30 - 11.10 10*3/?L. The reference range was not used to interpret this result as normal/abnormal . RBC (test code = See_Comment [Automated 789-8) message] The sy stem which generated this result transmitted reference range : 3.93 - 5.25 10*6/?L. The reference range was not used to interpret this result as normal/abnormal . HGB (test code = 10.8 g/dL 11.6-15 L 718-7) HCT (test code = 35.8 % 35.7-45.2 4544-3) MCV (test code = 74.7 fL 80.6-95.5 L 787-2) MCH (test code = 22.5 pg 25.9-32.8 L 785-6) MCHC (test code = 30.2 g/dL 31.6-35.1 L 786-4) RDW-SD (test code = 40.9 fL 39-49.9 13397-6) RDW-CV (test code = 15.2 % 12-15.5 788-0) PLT (test code = See_Comment [Automated 777-3) message] The sy stem which generated this result transmitted reference range : 166 - 358 10*3/ ?L. The reference r greer was not used to interpret this result as normal/abnormal . MPV (test code = 10.3 fL 9.5-12.9 47685-3) NRBC/100 WBC (test See_Comment [Automat ed code = 2576539430) message] The system which generated this result transmitted reference range : 0.0 - 10.0 /100 WBCs. The refer ence range was not u sed to interpret th is result as normal/abnormal . NRBC x10^3 (test code <0.01 See_Comment [Auto mated = 8297528831) message] The s ystem which generated this result transmitted reference range : 10*3/?L. The reference range was not used to interpret this result as normal/abnormal . GRAN MAT (NEUT) % 63.0 % (test code = 770-8) IMM GRAN % (test code 0.30 % = 9111059279) LYMPH % (test code = 27.0 % 736-9) MONO % (test code = 7.3 % 5905-5) EOS % (test code = 1.7 % 713-8) BASO % (test code = 0.7 % 706-2) GRAN MAT x10^3(ANC) 6.05 10*3/uL 1.88-7.09 (test code = 5471687135) IMM GRAN x10^3 (test 0.03 10*3/uL 0-0.06 code = 9039427044) LYMPH x10^3 (test code 2.59 10*3/uL 1.32-3.29 = 731-0) MONO x10^3 (test code 0.70 10*3/uL 0.33-0.92 = 742-7) EOS x10^3 (test code = 0.16 10*3/uL 0.03-0.39 711-2) BASO x10^3 (test code 0.07 10*3/uL 0.01-0.07 = 704-7) Lab Interpretation Abnormal (test code = 44851-6) [facility] [id number] 22:33:00 Test Item Value Reference Range Interpretation Comments POCT PREG (test code = 1605) negative On board controls acceptable with present C Line (test code = 3574) POCT PREG LOT # (test code = 3575) [id number] POCT PREG TEST DATE (test 06/14/2002 code = 3576) Lab Interpretation (test code = Normal 39307-0) [facility] HospitalLIPID PROFILE (CORONARY RISK)2018-12-08 14:27:00 Test Item Value Reference Range Interpretation Comments TRIGLYCERIDES (test 39 MG/DL 30-200 N code = TRIG) CHOLESTEROL (test code 139 MG/DL 122-200 N = CHOL) CHOLESTEROL/HDL RATIO 2.2 1.5-4.5 N 1. Ini tial (test code = CHOLHDL) classi fication based on total choles terol: <200 mg/dl Amisha rable cholesterol 200 -239 mg/dl Borderlin e high risk cholestero l >240 mg/dl High risk cholesterol2. I nitial classification based on LDL choleste rol: <130 mg/dl Amisha rable LDL cholesterol 130-159 mg/dl Borderline high risk LDL >159 mg/dl High risk LDL choles terol3. HDL < 35 mg/dl represent incre ased CHD risk; HDL > 60 mg/dl represent decreased CHD r isk.4. Chol/HDL > 5.0 represent incre ased CHD risk in men ; Chol/HDL > 4.5 represent incre ased CHD risk in wom en. HDL CHOLESTEROL (test 63 MG/DL 40-60 H code = HDL) LIPOPROTEIN LDL (test 68 MG/DL 62-130 N code = LDL) LIPOPROTEIN VLDL (test 8 MG/DL 3-60 N code = VLDL) RAPID PLASMA [id number] 10:31:00 Test Item Value Reference Range Interpretation Comments RAPID PLASMA REAGIN (test code = Nonreactive Nonreactive RPR) GLYCOSYLATED HEMOGLOBIN (HA1C)2018-12-07 10:05:00 Test Item Value Reference Range Interpretation Comments GLYCOSYLATED HEMOGLOBIN (HA1C) 5.8 % TOT HB 4.5-6.2 N (test code = GLYHGB) [id number] 15:31:00 Test Item Value Reference Range Interpretation Comments ACETAMINOPHEN (test < 1 MCG/ML 10-30 L Acetamin ophen is code = ACET) possibly toxic at levels of: 1. m ore than 150 MCG/ML 4 hours post kaylin stion. 2. more than 50 MCG/ML 12 hours post ingestion. [id number] 15:31:00 Test Item Value Reference Range Interpretation Comments SALICYLATE (test code = < 3 MG/DL 0-20 N Refe rence Range: BOSSMAN) Analgesic...... ...... ...... < 10 mg/ dl Therapeutic.... ...... ...... 15-20 mg /dl Mild Toxicity....... ...... . > 30 mg/dl Se enmanuel Toxicity....... ..... > 60 mg/dl UA RFLX [id number] 14:18:00 Test Item Value Reference Range Interpretation [...] DIPSTICK (test code 4+ NEGATIVE A = IRVER) UA PH DIPSTICK (test code = 8.0 [...] Clean Catch (test code = UASPEC) UA [id number] 14:18:00 Test Item Value Reference Range Interpretation Comments UA WBC (test code = WBCU) < 10 #/hpf <10 UA RBC (test code = RBCU) 0-2 #/hpf NONE SEEN A UA BACTERIA (test code = BACU) RARE #/hpf NONE SEEN UA SQUAMOUS CELLS (test code = 0 - 20 #/lpf <100 SQU) UA MUCUS (test code = MUCU) 1+ #/lpf NONE SEEN BASIC METABOLIC [id number] 14:16:00 Test Item Value Reference Range Interpretation [...] 9.4 MG/DL 8.7-10.5 N CA) HEPATIC FUNCTION [id number] 14:16:00 Test Item Value Reference Range Interpretation [...] 50-136 N TOTAL (test code = ALKP) [id number] 14:16:00 Test Item Value Reference Range Interpretation Comments CK (test code = CKT) 87 Units/L 26-192 N [id number] 14:16:00 Test Item Value Reference Range Interpretation Comments ALCOHOL (test code = < 3 MG/DL 0-10 N 0 - 10 : Should be ALC) interpreted as NEGATIVE. 11 - 50: None t o mild euphoria. 51 - 100: Mild influence on vi gina and dark adaptation . > 80: Legal intoxicat ion; Depression of C NS; Increasing degr ee of poisoning. > 40 0: Fatalities repo rted. Results are for medical purposes only a nd not forlegal or emp loyment evaluative purp oses. BASIC METABOLIC [id number] 14:09:00 Test Item Value Reference Range Interpretation [...] 9.4 MG/DL 8.7-10.5 N CA) HEPATIC FUNCTION [id number] 14:09:00 Test Item Value Reference Range Interpretation [...] TOTAL (test Units/L 50-136 code = ALKP) [id number] 14:09:00 Test Item Value Reference Range Interpretation Comments CK (test code = CKT) Units/L 26-192 [id number] 14:09:00 Test Item Value Reference Range Interpretation Comments ALCOHOL (test code = ALC) MG/DL 0-10 LACTIC ACID [id number] 13:50:00 Test Item Value Reference Range Interpretation Comments LACTIC ACID POC 0.97 MMOL/L 0.90-1.70 N Performed by certified (test code = LACTP) filling operator at [facility] [id number] 13:48:00 Test Item Value Reference Range Interpretation Comments GLUBED (test code = 88 MG/DL 65-99 N Performe d by certified GLUBED) filling operator at [facility] DRUG OF ABUSE SCREEN [id number] 13:43:00 Test Item Value Reference Interpretation Comments [...] by layton rader methods (i.e., GC/MS) at [facility]. Results of scre en may not be usedin crimi nal justice, job performance or professionalcre dential review, or infa nt custody issues. Negativ e [place] Level ng/ml ------- ----- Cocaine 3 00 Methamphetamine (Ecstacy) 500 Cannabinoid s (THC) 50 Amphetamine 100 0 Barbiturates 20 0 Benzodiazepines 200 Opiates 300 Phe ncyclidine (PCP) 25 UR HCG [id number] 13:39:00 Test Item Value Reference Range Interpretation [...] using aquantitative h CG assay. UA RFLX [id number] 13:38:00 Test Item Value Reference Range Interpretation [...] Clean Catch (test code = UASPEC) UA [id number] 13:38:00 Test Item Value Reference Range Interpretation Comments UA WBC (test code = WBCU) #/hpf <10 UA RBC (test code = RBCU) #/hpf NONE SEEN UA SQUAMOUS CELLS (test code = SQU) #/lpf <100 UA RFLX [id number] 13:38:00 Test Item Value Reference Range Interpretation [...] Clean Catch (test code = UASPEC) UA [id number] 13:38:00 Test Item Value Reference Range Interpretation Comments UA WBC (test code = WBCU) #/hpf <10 UA RBC (test code = RBCU) #/hpf NONE SEEN UA SQUAMOUS CELLS (test code = SQU) #/lpf <100 CBC W/AUTO [id number] 13:26:00 Test Item Value Reference Range Interpretation [...] = BA#) 0.05 x10 3/uL 0.0-0.2 N [id number] 19:07:00 Test Item Value Reference Interpretation Comments Range LEVETIRACETAM 28.7 ug/mL 10.0-40.0 This test was developed and (test code = its performance LEVTAM) characteristics determined by [facility]. It has not been cleared orappro froylan by the Food and Drug Administration. Performed At: [facility] [place] [id number] ra Larissa MENDOZA Ph:[phone] BASIC METABOLIC [id number] 04:58:00 Test Item Value Reference Range Interpretation [...] code = 8.9 MG/DL 8.7-10.5 N CA) [id number] 04:58:00 Test Item Value Reference Range Interpretation Comments MAGNESIUM (test code = MAG) 1.9 MG/DL 1.8-2.4 N CBC W/AUTO [id number] 04:08:00 Test Item Value Reference Range Interpretation [...] 0.0-0.2 N NRBC#) - MRI BRAIN W/O [id number] 13:51:00 Patient Name: HEATHER HOPE Unit No: [id number] EXAMS: CPT CODE: [id number] MRI BRAIN W/O CONTRAST 44491 Reason: sz INDICATION: Seizure COMPARISON: CT brain, 09/14/2018 TECHNIQUE: Scans of the brain are performed in the sagittal, coronal and transaxial planes using T1, fast spin-echo T2, FLAIR, gradient echo and diffusion-weighted scan protocols. FINDINGS: Examination is grossly suboptimal due tomotion artifact. Only limited information can be obtained from this study. The ventricular system and subarachnoid spaces appear normal and no acute infarct or hemorrhage is identified. No additional findings are seen. IMPRESSION: Grossly suboptimal MR due to motion artifact; no acute findings noted.Due to movement disorder, please do not reschedule this exam until the patient can hold still. at 6918 Reported and signed by: Lashell Anderson MD CC: Fanny Knowles DO; Jacob Gutierrez MD Technologist: Andre Self MRI Trscrpt Dt/ (5770)t.GAVIOTAR.DW6 Orig Print D/T: S: 09/17/2018 (4489) [facility] NAME: HEATHER HOPE [address] PHYS: [place] [address] : 1990 AGE: 27 SEX: F LOC: D.D313 1 PHONE #: [phone] EXAM DATE: 09/17/2018 STATUS: ADM IN FAX #: RAD NO: DC Dt: PAGE 1 Signed [id number] 07:25:00 Test Item Value Reference Range Interpretation Comments PROLACTIN (test code = 24.6 ng/mL 4.8-23.3 H Perfo rmed At: HD PROLAC) [facility] [address] [id number] Sb Man MD Ph:[phone] UA RFLX MICROSCOPIC [id number] 19:02:00 Test Item Value Reference Range Interpretation [...] UACULT) URINE SOURCE: Clean CatchUA RFLX MICROSCOPIC [id number] 18:56:00 Test Item Value Reference Range Interpretation [...] (test code = UACULT) URINE SOURCE: Clean [id number] 15:56:00 Test Item Value Reference Range Interpretation Comments CK (test code = CKT) 34 Units/L 26-192 N BASIC METABOLIC [id number] 12:57:00 Test Item Value Reference Range Interpretation [...] code = 8.6 MG/DL 8.7-10.5 L CA) [id number] 12:57:00 Test Item Value Reference Range Interpretation Comments CK (test code = CKT) 32 Units/L 26-192 N CBC W/AUTO [id number] 12:33:00 Test Item Value Reference Range Interpretation [...] 3/uL 0.0-0.2 N NRBC#) TOTAL IRON BINDING [id number] 05:50:00 Test Item Value Reference Range Interpretation Comments SERUM IRON (test code = IRON) 17 MCG/DL 50-170 L TOTAL IRON BINDING CAPACITY (test 363 MCG/DL 280-400 N code = TIBC) IRON SATURATION (test code = 5 % 15-50 L FESAT) [id number] 05:50:00 Test Item Value Reference Range Interpretation Comments FERRITIN (test code = LULI) 11 NG/ML 3-105 N HEPATIC FUNCTION [id number] 05:32:00 Test Item Value Reference Range Interpretation [...] code = ALKP) - CT HEAD/BRAIN W/O [id number] 20:19:00 Patient Name: HEATHER HOPE Unit No: [id number] EXAMS: CPT CODE: [id number] CT HEAD/BRAIN W/O CONT 25487 Reason: seizure TECHNIQUE: Contiguous 5 mm images were obtained through brain. No contrast was given. FINDINGS: The ventricles are normal in size and configuration. There is no intracranial hemorrhage, mass effect or abnormal extra-axial fluid collection. There are no focal attenuation abnormalities within the brain parenchyma. Bone targeted windows are unremarkable. IMPRESSION: Negative at 2019 Reported and signed by: Lashell Jimenez MD CC: Keanu Vázquez MD; Cristiane Heath Technologist: Edel Cade CT Trscrpt Dt/ (2019)MarlyW Orig Print D/T: S: 09/14/2018 (2021) CTDI: DLP: [facility] NAME: Maximino HOPE November [facility] PHYS: NGA. - Keanu Váz[place] [address] : 1990 AGE: 27 SEX: F LOC: RichNER PHONE #: [phone] EXAM DATE: 09/14/2018STATUS: REG ER FAX #: RAD NO: DC Dt: PAGE 1 Signed Report- XR CHEST 1 [id number] 20:18:00 Patient Name: HEATHER HOPE [facility] Unit No: [id number] EXAMS: CPT CODE: [id number] XR CHEST 1 V 76380Bvznqn: screen for pneumonia FINDINGS: Single view of the chest shows normal heart size and pulmonary vasculature. The lungs are clear bilaterally. There is no focal infiltrate, pleural effusion or pneumothorax. IMPRESSION: No acute cardiopulmonary findings at 2018 Reported and signed by: Lashell Jimenez MD CC: Keanu Vázquez MD; Cristiane Heath Technologist: Edel BURNS Trscrpt Dt/ (2017)t.PAMELA Orig Print D/T: S: 09/14/2018 (2020) [facility] NAME: HEATHER HOPE [facility] PHYS: NGA. - Keanu Váz[place] [address] : 1990 AGE: 27 SEX: F LOC: RichNER PHONE #: [phone] EXAM DATE: 09/14/2018 STATUS: REG ER FAX #: RAD NO: DC Dt: PAGE 1 Signed ReportHCG SERUM [id number] 20:04:00 Test Item Value Reference Range Interpretation [...] using aquantitative h CG assay. BASIC METABOLIC [id number] 19:51:00 Test Item Value Reference Range Interpretation [...] 9.3 MG/DL 8.7-10.5 N CA) CBC W/AUTO [id number] 19:46:00 Test Item Value Reference Range Interpretation [...] BA#) 0.05 x10 3/uL 0.0-0.2 N BLOOD [id number] 10:00:00 Test Item Value Reference Range Interpretation Comments CULTURE (BEAKER) (test No growth in 5 days code = 1095) HCG, QUANTITATIVE, [id number] 15:37:00 Test Item Value Reference Range Interpretation Comments GONADOTROPIN, CHORIONIC (HCG) 02340 mIU/mL 0-10 H QUANT (BEAKER) (test code = 649) Non- Females: <10 mIU/mL Females: Gestation Age Reference Range(mIU/mL) 0.2-1 Week 5-50 1-2 Weeks 50-500 2-3 Weeks 100-5,000 3-4 Weeks 500-10,000 4-5 Weeks 1,000-50,000 5-6 Weeks 10,000-100,000 6-8 Weeks 15,000- 200,000 2-3 Months 10,000-100,000COMPREHENSIVE METABOLIC [id number] 15:10:00 Test Item Value Reference Range Interpretation [...] PATIEN TS. CBC W/PLT COUNT & AUTO [id number] 14:53:00 Test Item Value Reference Range Interpretation [...] (test code = 2801) U/S, , FIRST [id number] 07:52:00Reason for exam:-> Reason for exam:->please include transvaginal ultrasound for dating FINAL REPORT ULTRASOUND FIRST TRIMESTER, ULTRASOUND TRANSVAGINAL, ULTRASOUND DUPLEX DOPPLER HISTORY: Vaginal bleeding, COMPARISON: No comparison pelvic imaging TECHNIQUE: Real-time ultrasound of the pelvis was performed transabdominally and transvaginally. Examination included color and spectral Doppler evaluation of the ovaries and M- mode Doppler evaluation ofthe embryo. FINDINGS: The uterus measures 5.4 x 7.4 x 13.9 cm in size. No uterine mass lesion is visualized. There is an intrauterine gestational sac. Mean gestational sac diameter measures 2.8 cm, correlating with an estimated gestational age of 8 weeks 1 day. An embryonic pole is evident. [place]-rumplength measures 0.63 cm, correlating with estimated gestational [...] Garrido Verified Date/Time: 05/17/2017 07:52:37 Reading Location: [address] Ortho Consult Reading Room PREGNANCY SCREEN, [id number] 05:28:00 Test Item Value Reference Range Interpretation Comments TEST URINE (BEAKER) (test Positive code = 583) MR, BRAIN, WITHOUT [id number] 18:54:00Reason for exam:->Stroke evaluationFINAL REPORT MRI brain without contrast 05/15/2017 6:51 PM CLINICAL INDICATION: EpilepsyStroke evaluation TECHNIQUE: Multiplanar, multisequence MR imaging of the brain was performedutilizing the following imaging sequences: Axial T1, T2, FLAIR, GRE, and DWI; sagittal and coronal T1- weighted images. COMPARISON: None available FINDINGS: Patient motion limits this examination. Pathology may be obscured. With this limitation mind, there is no infarct, hematoma, mass, extra-axial collection, or hydrocephalus. Normal appearing flow-voids are present in the major intracranial vascularstructures. The sellar and pineal regions are normal. The craniovertebral junction is intact. The orbits, face, and skull base are without worrisome finding. IMPRESSION: Motion limited, but otherwise unremarkable noncontrast examination. Signed: Brandon Parra Verified Date/Time: 05/15/2017 18:54:11 Reading Location: [facility] Reading Room EEG AWAKE AND [id number] 12:08:00 Reason for exam:->? nonconvulsive statusDATE OF TEST: 05/15/2017DATE OF REPORT 05/15/2017 ACC: [id number] EE Start time: 1034 Stop time: 1054 ICD-10: R56.9CPT Code: 43781TVTIZIL: 26 y/o woman with epilepsy found down [...] recordings.Marika Smith M.D.Neurophysiology FellowSwathi Harper M.D.Neurophysiology Attending [id number] 04:27:00 Test Item Value Reference Range Interpretation Comments PROCALCITONIN (BEAKER) (test code 0.17 ng/mL <0.05 H = 3036) SEPSIS RISK (ng/mL)Low: 0.05-0.50Intermediate: 0.51-2.00High: >=2.01 [id number] 03:15:00 Test Item Value Reference Range Interpretation Comments PHOSPHORUS (BEAKER) (test code = 3.1 mg/dL 2.3-4.7 604) [id number] 03:15:00 Test Item Value Reference Range Interpretation Comments MAGNESIUM (BEAKER) (test code = 1.9 mg/dL 1.6-2.6 627) BASIC METABOLIC [id number] 03:15:00 Test Item Value Reference Range Interpretation [...] code = 380) LACTIC ACID, VENOUS, WHOLE [id number] 03:09:00 Test Item Value Reference Range Interpretation Comments LACTATE BLOOD VENOUS (2) (BEAKER) 0.6 mmol/L 0.5-2.2 (test code = 2872) Effective 10/17/2015: Units/Reference Range ChangeNew: 0.5-2.2 mmol/L Previous: 5- 20 mg/dLPROTHROMBIN TIME/[id number] 03:07:00 Test Item Value Reference Range Interpretation Comments PROTIME (BEAKER) (test code = 14.5 seconds 11.7-14.7 759) INR (BEAKER) (test code = 370) 1.1 <=5.9 RECOMMENDED COUMADIN/WARFARIN INR THERAPY RANGESSTANDARD DOSE: 2.0 - 3.0 Includes: PROPHYLAXIS for venous thrombosis, systemic embolization; TREATMENT for venous thrombosis and/or pulmonary embolus.HIGH RISK: Target INR is 2.5-3.5 for patients with mechanical heart valves.CBC W/PLT COUNT & AUTO [id number] 03:00:00 Test Item Value Reference Range Interpretation [...] = 2801) RAD, CHEST, 1 VIEW, NON [id number] 01:06:00Reason for exam:->possible infectionShould this be performed at the bedside?->YesFINAL REPORT History: Infection. Comparison: None. Findings: A single view of th e chest is submitted. The cardiomediastinal contours are unremarkable. There is no focal consolidation, pneumothorax, large pleural effusion or evidence of overt pulmonary edema. There is no acute bonyabnormality. Impression: No acute abnormality. Signed: Shabnam Zhu MDReport Verified Date/Time: 05/15/2017 01:06:06 Reading Location: [address] Reading Room Notes Date/Time Note Provider Source 2021-02-19 13:40:17 [id number]:40:17 ANA GRIFFIN [facility] HEATHER COLBERTTERESACILITY: SLSL[facility]ilbill #: [id number] Room: [address] [place] [address] #: [id number] : 1990DATE OF ADMISSION: 1DATE OF CONSULTATION:REQUESTING PHYSICIAN:GARBAGE PICK UP MAN: ELIZABET PattersonUBJECTIVE: Ms. Hope essentially has remained unchanged. Sheis awaiting transfer to the psychiatric facility. There is noassociated nausea, vomiting, or fever.OBJECTIVE: VITAL SIGNS: Temperature was 96.9, heart rate 83,respirations 17, and the blood pressure 106/64.HEENT: No icterus was noted.ABDOMEN: Soft.LABORATORY DATA: Lab results showed further improvement in theALT. Her ammonia was somewhat elevated, but this was againvenous ammonia.IMPRESSION: Tylenol hepatotoxicity nearly resolved. No GIchanges need to be done and our specialty is okay with thetransfer.NM/MODLDD: 02/19/2021 11:23:48DT: 02/19/2021 13:40:17Job #: [id number] 13:40:[id number]:19:[id number] PANTOJALQQRYISMNSDSKRAIBVBVDUXBFI4733-48-47D40:1 9:28 2021-02-18 12:14:06 [id number]:14:06 RENAN MCDERMOTT [facility] NOTESDARINELMELI VIRAMONTESJADENCILITY: [facility] #: [id number] Room: [address] [place] [address] #: [id number] : 1990PHYSICIAN: Renan Griffin, MDADMISSION DATE: 02/11/2021ATE: 02/18/2021UBJECTIVE: Ms. Hope overall has remained stable. "They saidearlier they are going to take me today, but it does not appearto be the case, I am doing fine, I just need to go over to thepsychiatric facility and get discharged."PHYSICAL EXAMINATION:VITAL SIGNS: Temperature was 97.5, heart rate 86, , and blood pressure was 116/73.HEENT: No icterus was noted.ABDOMEN: Soft. No tenderness noted. No masses were felt.LABORATORY DATA: White count was 7000 with a stable hematocritof 34. The transaminases have continued to trend down and theAST now was 416 from a peak of 1994. Of note is the fact thatat no point her bilirubin went up.IMPRESSION:1. Tylenol hepatotoxicity, nearly resolved.2. Suicidal attempt.3. Borderline anemia.No further workup is recommended from my standpoint, and she iscleared from liver standpoint, to proceed with psychiatricevaluation, care and management.NM/MODLDD: 02/18/2021 12:01:11DT: 02/18/2021 12:14:06Job #: [id number] 12:14:[id number]:19:[id number] GRIFFINUFVALFDMMMFPFBSUBSFTQOXEJY5032-74-58Z22:1 9:34 2021-02-17 10:33:00 [id number]:33:00 PROGRESS ACACIA Pisano, RENAN [facility] NOTESERVIN DIASCILITY: [facility] #: [id number] Room: [address] [place] [address] #: [id number] : 1990PHYSICIAN: Renan Griffin, MDADMISSION DATE: 02/11/2021ATE: 02/17/2021UBJECTIVE: Ms. Hope was very talkative today. "I guess, Chapin have to go to a psychiatric facility, and since I am okay,they likely will send me home in a day."OBJECTIVE: VITAL SIGNS: Temperature was 97.53, heart rate 88,respirations are 19, blood pressure 117/70.HEENT: No icterus was noted.ABDOMEN: Soft. No tenderness noted. No masses were felt.LABORATORY DATA: Showed the ALT down to 549 and the AST 96.The bilirubin has remained steadfastly normal. The INR wasalso normal.IMPRESSION:1. Resolving Tylenol hepatotoxicity.2. Improved mental status.PLAN: The patient's LFTs are markedly improved compared tobefore, and her Tylenol related hepatotoxicity clinically isresolved and we should see the biochemical improvementcontinue. From my standpoint, she can actually go to thePsychiatric Facility.NM/MODLDD: 02/17/2021 09:07:50DT: 02/17/2021 10:33:00Job #: [id number] 10:33:[id number]:19:[id number] [id number] PANTOJAVLACIQPPULGPWROVYEIDQNMOBH5074-05-28V58:1 9:34 2021-02-15 14:50:43 [id number]:50:43 ANA GRIFFIN [facility] CONSULTATIONSERVIN DIASCILITY: DRAGANLBilbill #: [id number] Room: [address] [place] [address] #: [id number] : 1990DATE OF ADMISSION: 02/11/2021ATE OF CONSULTATION:REQUESTING PHYSICIAN:GARBAGE PICK UP MAN: Renan Griffin MDHISTORY OF PRESENT ILLNESS: Ms. Hope overall is feelingbetter. She was somewhat somnolent.PHYSICAL EXAMINATION:VITAL SIGNS: Her temperature was 98.3, pulse 97, uawobvklcamo22, and blood pressure 119/73.HEENT: No icterus was noted.The LFTs have continued to improve.IMPRESSION: Tylenol hepatotoxicity with overall markedimprovement. Her INR is normal and the transaminases cleartrending in that direction. No further recommendations aremade from a GI standpoint. No interventions are needed and shedoes not need any transfers.NM/MODLDD: 02/15/2021 12:24:16DT: 02/15/2021 14:50:43Job #: [id number] 14:50:[id number]:19:[id number] [id number], KFEASAHJISUXLHMNEOUWERFHUL6922-27-74V39:1 9:28 2021-02-15 13:52:01 [id number]:52:01 DORCAS MORGAN [facility] NOTESNADINE DIASMILYITY: SLSLBilbill #: [id number] Room: [address] [place] [address] #: [id number] : 1990PHYSICIAN: Dorcas Garcia, MDADMISSION DATE: 02/11/2021ATE: 02/15/2021UBJECTIVE: The patient is lying in the bed comfortably, in noacute distress. She has been moved to the floor. She isslowly and steadily progressing back to her baselineneurocognitive status. She remains on appropriate supportivetherapy.OBJECTIVE: VITAL SIGNS: Blood pressure 121/72, pulse 90,respirations 16, temperature 98.2.NEUROLOGIC: Mental status: The patient is awake, alert, andoriented. Does follow simple commands. Speech iscomprehensible. Comprehension is intact. Cranial nerves:Pupils are equal, round, and reactive to light bilaterally.Extraocular movements are intact. Face appears symmetric andtongue is in the midline. Motor: The patient has spontaneousextremity movements without any obvious focal neurologicaldeficits. Reflexes are symmetric and plantars are downgoing.Sensory: Gross cortical and peripheral sensation seem intact.Coordination and gait testing: Deferred at this time.ASSESSMENT: Acute toxic encephalopathy secondary to theacetaminophen toxicity compound by Dilantin toxicity in thecontext of known epilepsy disorder. CT scan of the head didnot reveal any acute intracranial abnormalities. EEG showsmild encephalopathy. The patient has deep brain stimulatingelectrodes in the brain, so an MRI of the brain cannot be done. She continues to improve from a neurocognitive standpoint.RECOMMENDATIONS:1. No further neurodiagnostic testing is required at this time.2. I agree with supportive treatment plan.3. The patient is cleared to be discharged from a neurologicalstandpoint. We will sign off.4. Dr. Garcia was personally present for the evaluation andmanagement of this patient.OM/MODLDD: 02/15/2021 13:41:00DT: 02/15/2021 13:52:01Job #: [id number] By: DANISH DarbyNG-WKOYcvzturvgmfb3585-65OAXVuysfljsxvfp8104-65-68X90:52:[id number]:54:[id number], GROGCWQFLDZJBBMRBLPBRSMIK1008-64-89W53:54 :11 2021-02-14 18:16:48 [id number]:16:48 DORCAS GARCIA [facility] CHRISS COLBERTITY: [facility] #: [id number] Room: [address] [place] [address] #: [id number] : 1990DATE OF ADMISSION: 1DATE OF CONSULTATION: 1REQUESTING PHYSICIAN: YOAHN LariosONSULTANT: MICKEY Woo FOR CONSULTATION: Encephalopathy.HISTORY OF PRESENT ILLNESS: This is a 30-year-old femalepatient with a past medical history significant for seizuredisorder, depression, anemia, who was [facility] via EMS when she was found on thefloor after having a seizure-like activity and in postictalstate. Reportedly, she had a bottle of Tylenol #3 with codeinefound near her. The patient also had nausea and vomitingmultiple times. She takes Dilantin and Keppra for seizureprophylaxis. She was transferred to this facility for a higherlevel of care. Dilantin levels were supratherapeutic. Thepatient was found to be in liver failure secondary to Tylenoltoxicity. CT scan of the head did not reveal any acuteintracranial abnormalities. The patient does have bifrontalapproach to deep brain stimulating electrodes within the brain. EEG shows mild encephalopathy. Neurology was consulted forfurther evaluation.PAST MEDICAL HISTORY: As mentioned above.PAST SURGICAL HISTORY: Deep brain stimulation.ALLERGIES: NKDA.MEDICATIONS: Reviewed.FAMILY HISTORY: Noncontributory.SOCIAL HISTORY: No reports of alcohol, tobacco or illicit druguse reported.REVIEW OF SYSTEMS:A 14-point review of system has been conducted and isessentially negative except for the HPI.PHYSICAL EXAMINATION:VITAL SIGNS: Blood pressure 114/68, pulse 122, qrpiysebgik86.9, respiration 22.NEUROLOGIC: Mental status: The patient is lethargic, butawake. She does follow simple commands. Speech iscomprehensible. Comprehension is intact. Cranial nerves:Pupils are equal, round, and reactive to light bilaterally.Extraocular movements are intact. Face appears symmetric.Tongue is in the midline. Motor: The patient has spontaneousextremity movements with generalized weakness. Reflexes aresymmetric and plantars are downgoing. Sensory: Gross corticaland peripheral sensation seem intact. Coordination and gaittesting: Deferred at this time.LABORATORY DATA AND IMAGING DATA: Have been reviewed.ASSESSMENT: Acute toxic encephalopathy secondary to Tylenolsecondary to acetaminophen toxicity compound by Dilantintoxicity in the context of known epilepsy disorder. CT scan ofthe head did not reveal any acute intracranial abnormalities.EEG shows mild encephalopathy. The patient has deep brainstimulating electrodes, so an MRI of the brain cannot be done.She is improving from a neurocognitive standpoint.RECOMMENDATIONS:1. No further neurodiagnostic testing is required at this time.2. I agree with supportive treatment plan.3. We will continue following up with this patient.4. This case was discussed with Dr. Garcia, who was in agreementwith the plan of care.OM/MODLDD: 02/14/2021 15:53:33DT: 02/14/2021 18:16:48Job #: [id number] By: MARCELO DarbyFM-AQWYiivcruqxsqp6567-96TWCJvjaoapeubhk4749-11-98E92:16:[id number]:54:[id number], PHGDCTOVHRBYHQVVZOVETDGCT3686-52-47N02:54 :11 2021-02-14 12:52:52 [id number]:52:52 ANA GRIFFIN [facility] ERVIN COLBERTCILITY: SLSLArmand #: [id number] Room: PSYCHIATRIC I213 #: [id number] : 1990DATE OF ADMISSION: 1DATE OF CONSULTATION:REQUESTING PHYSICIAN:GARBAGE PICK UP MAN: ELIZABET PattersonUBJECTIVE: Ms. Hope was eating lunch without any problems.She denies any abdominal pain, nausea, or vomiting. There isno associated fever, chills, cough, or shortness of breath.OBJECTIVE: VITAL SIGNS: Temperature was 98, heart rate 95,respirations 14, blood pressure 116/68.HEENT: No icterus was noted.CHEST: Clear.ABDOMEN: Soft.LABORATORY DATA: Reviewed, which showed the transaminases wereessentially to be stable and not going up. The AST was 905 andthe ALT 1579. The bilirubin still was normal. Her INR wasalso normal.IMPRESSION:1. Tylenol toxicity with hepatotoxicity.2. LFT abnormalities, now stable.PLAN: The trend would be in the downward direction now as shehas no evidence of any increase. From my standpoint, thepatient can be transferred to the floor for further managementand the acetylcysteine dose needs to be finished.NM/MODLDD: 02/14/2021 12:00:33DT: 02/14/2021 12:52:52Job #: [id number] 12:52:[id number]:19:[id number] [id number], NACUUCWRNYJDWDGCHLNNOFCIBV7011-69-51S69:1 9:24 2021-02-14 11:39:03 [id number]:39:03 DORCAS GARCIA [facility] OPERATIVE/PROCEDURE REPORTSHEATHER DIASTERESACILITY: [facility]LBilling #: [id number] Room: [address] [place] [address] #: [id number] : 1990DATE OF PROCEDURE: 02/13/2021URGEON: Dorcas Garcia, CONSTANTINEROCEDURE: EEG.SUBJECTIVE: Mrs. Hope is a 30-year-old female undergoing EEGto gauge for the extent of encephalopathy in the context ofalteration in mental status.TECHNIQUE: This EEG was acquired by [employer] 10/20electrode placement system.DESCRIPTION OF PROCEDURE: There is no clear discernible awakebackground rhythm noticed. Persistent poorly organized sleeparchitecture was noticed throughout the recording. No clearevidence of any focal slowing or epileptiform transientnoticed. No electrographic seizures were recorded. Photicstimulation produces a poor driving response.INTERPRETATION: This is an abnormal EEG showing milddisorganized sleep architecture with no clear evidence of anyepileptiform discharges.CLINICAL CORRELATION: This is an abnormal EEG consistent withencephalopathy of mild severity. Clinical correlation isrecommended.MFK/MODLDD: 02/14/2021 09:31:48DT: 02/14/2021 11:39:03Job #: [id number] [id number]:39:[id number]:54 :[id number], PMYLTWERFASZRFFWAIWXLEITJ1354-68-27G83:54 :11 2021-02-13 13:04:19 [id number]:04:19 ANA GRIFFIN [facility] ERVIN COLBERTCILITY: Roni #: [id number] Room: [address] [place] [address] #: [id number] : 1990DATE OF ADMISSION: 1DATE OF CONSULTATION:REQUESTING PHYSICIAN:GARBAGE PICK UP MAN: MICKEY Patterson FOR CONSULTATION: Tylenol toxicity with LFTabnormalities.HISTORY OF PRESENT ILLNESS: The patient is a 02-rlhi-swsxchnxa, who took Tylenol as an overdose. She is a very poorhistorian and is unable to give me any history directly. Thehospital notes were reviewed. [facility] with alteredmental status and medication overdose with a suicide attempt.She told me that she took five tablets of Tylenol, but it isnot exactly clear as to how much she took. She was started onacetylcysteine at [facility] given the loadingdose and also the second dose. The patient denies any nauseaor vomiting. She denies any abdominal pain or confusion.There is no associated fever, chills, cough, or shortness ofbreath. The patient does not want to talk much about heroverall condition. She apparently also has been on Dilantin.She does mention that she takes some Zoloft, but mentioned thatshe does not take any other medications.REVIEW OF SYSTEMS:A detailed review of systems is extremely limited as thepatient was not cooperative. She denied consuming any alcoholand she does not smoke cigarettes also.PHYSICAL EXAMINATION:GENERAL: Revealed a female, who appeared comfortable. She didnot appear in any distress.VITAL SIGNS: Temperature was 97.8, heart rate 96, aqtcboupsvjg75, blood pressure is 127/80.HEENT: No icterus was noted. External ocular movements wereintact. No pharyngeal erythema was noted.HEART: She had an S1, S2, or S3. No S4 was noted. Nomurmurs, rubs, or gallops were heard.CHEST: No wheezes or rales.ABDOMEN: Soft with positive bowel sounds. No tendernessnoted. No masses were felt.EXTREMITIES: No cyanosis, clubbing or edema.LABORATORY DATA: Remarkable for a bump in the transaminases inthe 7802-1746 range. The INR was 1.44.IMPRESSION: Tylenol related hepatic toxicity.The patient's acetylcysteine would be continued and she willneed to be observed closely. She will need daily INR and dailyLFTs. If there is significant worsening of her INR and/orencephalopathy, then she [facility]. I have discussedthis with the staff.Thank you for the courtesy of your referral.NM/MODLDD: 02/13/2021 11:09:31DT: 02/13/2021 13:04:19Job #: [id number] 13:04:020372-17-57H57:19:[id number] [id number] PANTOJAVKFUSGBQNUGIADHBLSQYIKHYOL1198-75-23A76:1 9:24 2019-02-23 15:48:00 [id number]:48:00 [facility] ([facility])EMERGENCY PROVIDER REPORTREPORT#:[id number] REPORT STATUS: SignedDATE:02/23/19 TIME: 1548 PATIENT: HEATHER HOPE UNIT #: [id number]#: [id number] ROOM/BED:AGE: 28 SEX: F PCP PHYS: No Primary or Family PhysicianSERVICE AUTHOR: Theresa Fields MD * ALL edits or amendments must be made on the electronic/computer document * HPI-Seizure GeneralConfirmed Patient YesInitial Greet Date/Time 02/23/19 1524 PresentationChief Complaint Seizure, generalizedSeizure Anatomic Location Right-sided, Left-sidedHx Obtained From ParamedicOnset Occurred Today, PTASymptom Duration BriefProgression since Onset ResolvedSeverity: Onset ModerateSeverity: Current ModerateAssociated withDenies: Bladder incontinence, Bowel incontinence. Associated Other Hx limited due to pt's medical condition Free Text HPI NotesFree Text HPI Notes28 y/o F, with PMHx of seizure disorder and major depression, was brought to the from [facility] for witnessed seizure onset today [employer]. Paramedics deny noting bowel/bladder incontinence. HPI and ROS limited due to pt being sleepy. Portions of this section were scribed by Noble Boyce on 02/23/19 at 1727 Review of Systems ROS StatementsUnable to Obtain ROS Patient condition (sleepy) Portions of this section were scribed by Noble Boyce on 02/23/19 at 1600 Past Medical History - AdultStated Complaint SEIZUREAllergiesCoded Allergies:No Known Allergies (02/23/19) Review of Nursing Notes Rev avail, and agreeUnable to Obtain Past surgical historyPast Medical History:Reports: Depression/mood disorder, Seizure disorder. Smoking status for patients 13 years old or older: Former Smoker Portions of this section were scribed by Noble Boyce on 02/23/19 at 1600 Physical Exam Vital SignsVital SignsFirst Documented: Result Date Time Pulse Ox 98 02/23 1518 B/P 102/79 02/23 1518 B/P Mean 86 02/23 1518 O2 Delivery Room air 02/23 1518 Temp 37.3 02/23 1518 Pulse 130 02/23 1518 Resp 16 02/23 1518 O2 Flow Rate 2.807544 02/23 1750 Last Documented: Result Date Time O2 Delivery Nasal cannula 02/23 175 O2 Flow Rate 2.711158 02/23 1750 Pulse Ox 99 02/23 1730 B/P 115/75 02/23 1730 B/P Mean 88 02/23 173 Temp 36.8 02/23 173 Pulse 110 02/23 1730 Resp 18 02/23 1730 Review of Vital Signs Reviewed Basic Physical ExamBasic PE HEAD: Atraumatic/NC, EYES: PERRL, conj clear, ENT: Membranes moist, ABD: Soft/non-tender, EXT: No gross abnormality, SKIN: No rashes, warm/dry Focused PEGeneral/Const General/Const Awake, Alert, No acute distress Text/Dict Notessleepy, but easily arousableShaking bilateral armsSitting up and states that she is having seizureEyes Eyes PERRL, EOMI, No scleral icterusEars/Nose/Throat Ears/Nose/Throat Airway patent, Mucous membranes moist, Pharynx NLMS Neck Neck Supple, No meningismus, No adenopathy, No swellingResp/Chest Respiratory/Chest Breath sounds NL, Breath sounds = bilat, No respiratory distressCardiovascular Cardiovascular Heart rate NL, Regular rhythm, Heart sounds NLAbdomen/GI Abdomen/GI Soft, Non-tender, BS normoactive, No distentionMS Upper Extrem Upper Extremity/MS No swelling, Non-tender, No erythemaMS Lower Extrem Lower Ext/Pelvis/MS No swelling, Non-tender, No erythemaSkin Skin Color NL, No rash, Warm, DryNeurologic Neurologic No motor deficits, No sensory deficitsPsychiatric Psychiatric Not suicidal, Not homicidal, No hallucinations, Thought content NL Abnormal Mood/Affect Depressed. Negative: Anxious, Apathetic, Elated, Euphoric, Fearful, Flat affect, Flight of ideas, Hopeless, Inappropriate, Irritable, Labile, Pressured speech. Abnormal Thinking/Perception Negative: Suicidal, with plan, Suicidal, no plan, Homicidal, with plan, Homicidal, no plan, Hallucinations, auditory, Hallucinations, visual, Hallucinations, tactile, Judgment abnormal, Insight abnormal, Confused. Portions of this section were scribed by Noble Boyce on 02/23/19 at 1712 Interpretation Diagnostics Lab Results InterpretationResultsLaboratory Tests 02/23/19 1607:[Embedded Image Not Available]Laboratory Tests: 02/23 02/23 02/23 1653 1607 1607 Chemistry Sodium (134.0 - 147.0 mmol/l) 138 Potassium (3.6 - 5.2 mmol/L) 3.8 Chloride (98.0 - 107.0 mmol/l) 102 Carbon Dioxide (21.0 - 33.0 mmol/l) 26.7 Anion Gap (0 - 20) 13.1 BUN (7.0 - 18.0 mg/dl) 8 Creatinine (0.60 - 1.30 mg/dL) 0.66 Est GFR ( Amer) (133 - 145 mL/min) 136 Est GFR (Non-Af Amer) (110 - 120 mL/min) 112 Glucose (70.0 - 110.0 mg/dl) 110 Calcium (8.0 - 10.5 mg/dl) 8.8 Serum , Qual (NEGATIVE) NEGATIVE Hematology WBC (4.5 - 11.0 K/mm3) 8.0 RBC (3.80 - 5.20 M/mm3) 4.57 Hgb (12.0 - 16.0 gm/dL) 10.1 L Hct (36.0 - 48.0 %) 33.6 L MCV (82.0 - 99.0 UM3) 73.5 L MCH (25.5 - 32.5 UUG) 22.1 L MCHC (29.0 - 35.5 gm/dL) 30.1 RDW (11.5 - 15.0 %) 15.0 Plt Count (150 - 400 K/mm3) 319 MPV (7.4 - 10.4 fl) 10.5 H Neut % (Auto) (49.0 - 76.0 %) 59.5 Lymph % (Auto) (23.0 - 38.0 %) 26.9 [place] % (Auto) (1.0 - 10.0 %) 10.4 H Eos % (Auto) (1.0 - 5.0 %) 2.1 Baso % (Auto) (0.0 - 1.0 %) 0.9 Neut # (Auto) (2.4 - 6.3 K/mm3) 4.8 Lymph # (Auto) (1.2 - 4.0 K/mm3) 2.2 [place] # (Auto) (0.0 - 0.6 K/mm3) 0.8 H Eos # (Auto) (0.0 - 0.7 K/MM3) 0.2 Baso # (Auto) (0.0 - 0.2 K/mm3) 0.1 Immature Gran % (0.0 - 0.4 %) 0.2 Immature Gran # (0.00 - 0.07 x10 3/uL) 0.02 Toxicology Urine Opiates Screen (NEGATIVE) NEGATIVE Urine Methadone Screen (NEGATIVE) NEGATIVE Urine Barbiturates (NEGATIVE) NEGATIVE Ur Phencyclidine Scrn (NEGATIVE) NEGATIVE Ur Amphetamines Screen (NEGATIVE) NEGATIVE U Benzodiazepines Scrn (NEGATIVE) NEGATIVE Urine Cocaine Screen (NEGATIVE) NEGATIVE Urine Cannabinoids (NEGATIVE) NEGATIVE Urines Urine Color YELLOW Urine Appearance SLHZY Urine pH (5.0 - 9.0) 6.0 Ur Specific Mccormick (1.000 - 1.030) 1.020 Urine Protein (NEGATIVE mg/dl) NEGATIVE Urine Glucose (UA) (NORMAL mg/dl) NORMAL Urine Ketones (NEGATIVE mg/dl) NEGATIVE Urine Blood (NEGATIVE Gilbert/micL) 250 Gilbert/micL H Urine Nitrite (NEGATIVE) NEGATIVE Urine Bilirubin (NEGATIVE mg/dL) NEGATIVE Urine Urobilinogen (NORMAL mg/dl) NORMAL Ur Leukocyte Esterase (NEGATIVE Bryan/micL) NEGATIVE Urine RBC (0 - 3 RBC/HPF) 10-25 H Urine WBC (NONE WBC/HPF) 0-3 Ur Epithelial Cells (0 - 3 EPI/HPF) 5-10 H Urine Bacteria (NONE) MOD Recent Impressions:CAT SCAN - CT HEAD/BRAIN W/O CONT 02/23 1642 Report Impression - Status: SIGNED Entered: 02/23/2019 1654 IMPRESSION: No evidence of acute intracranial abnormality. Impression By: [email or web address] - Mark Morrison M.D. Lab Imaging StatementLaboratory radiographic studies reviewed and considered in the medical decision-making. Point of Care TestingUrinalysis Interpretation UA ReviewedPulse Oximetry Pulse Ox % 98 On: Room air Interpretation Interpreted by me, Pulse oximetry normal Time 1518Pregnancy Test Negative - serum HCG Lab StudiesDrug Screen/Level Drug Screen Interpretation Reviewed RadiographyCT Head Study No contrast Text/Dict NoteIMPRESSION:No evidence of acute intracranial abnormality. Interpretation/Wet Read by Interpret - Radiologist Reviewed by ED physician Portions of this section were scribed by Noble Boyce on 02/23/19 at 1727 Re-Evaluation MDM Free Text MDM NotesFree Text MDM NotesReason for CT Head: Seizure Re-Evaluation/Progress #1Time of Re-Eval 1712Re-Eval Status ImprovedRe-Eval Neurologic Exam Alert, Pt is back to baseline, Oriented X3, Disoriented to person, Disoriented to place, Disoriented to time, CN II - XII intact, Speechnormal, No motor deficits, No sensory deficitsEval Following Treatment Condition improvedPain Re-Evaluation Denies painExam Post Tx - General Alert, Vital signs stableExam Post Tx - Sys Review Lungs clear, Abdomen soft, Abdomen nontenderPlan Post Re-Eval Plan discharge Tissue Perfusion ReassessmentPatient tissue perfusion reassessment completed. ED CourseMedication(s) OrderedMedication(s) Ordered:Central Nervous System Agents Sig/Godfrey Start time Last Medication Dose Route Stop Time Status Admin Lorazepam 2 MG X1ED STA 02/23 1547 DC 02/23 IV 02/23 1548 1602 Gastrointestinal Drugs Sig/Godfrey Start time Last Medication Dose Route Stop Time Status Admin Famotidine 20 MG X1ED STA 02/23 1602 DC 02/23 IV 02/23 1603 1607 Ondansetron HCl 8 MG X1ED STA 02/23 1601 DC 02/23 IV 02/23 1602 1606 Portions of this section were scribed by Noble Boyce on 02/23/19 at 1727 Patient Discharge Departure Vital Signs/ConditionVital SignsFirst Documented: Result Date Time Pulse Ox 98 02/23 1518 B/P 102/79 02/23 1518 B/P Mean 86 02/23 1518 O2 Delivery Room air 02/23 1518 Temp 37.3 02/23 1518 Pulse 130 02/23 1518 Resp 16 02/23 1518 O2 Flow Rate 2.243751 02/23 1750 Last Documented: Result Date Time O2 Delivery Nasal cannula 02/23 1750 O2 Flow Rate 2.141126 02/23 1750 Pulse Ox 99 02/23 1730 B/P 115/75 02/23 1730 B/P Mean 88 02/23 1730 Temp 36.8 02/23 1730 Pulse 110 02/23 1730 Resp 18 02/23 1730 All vital signs available at the time of this entry have been reviewed. Condition Stable Clinical ImpressionClinical ImpressionPrimary Impression: Pseudoseizure Disposition DecisionDischarge )( Discharged to Home Yes )( Time 1714 )( Date 02/23/19 Discharge/Care PlanCounseled Regarding Diagnosis, Lab results, Imaging studies, Need for follow-up,When to return to ED Discharge NoteI have spoken with the patient and/or caregivers. I have explained the patient'scondition, diagnoses and treatment plan based on the information available to meat this time. I have answered the patient's and/or caregiver's questions and addressed any concerns. The patient and/or caregivers have as good an understanding of the patient's diagnosis, condition and treatment plan as can beexpected at this point. The vital signs have been stable. The patient's condition is stable and appropriate for discharge from the emergency department. The patient will pursue further outpatient evaluation with the primary care physician or other designated or consulting physician as outlined in the discharge instructions. The patient and/or caregivers are agreeable to this planof care and follow-up instructions have been explained in detail. The patient and/or caregivers have received these instructions in written format and have expressed an understanding of the discharge instructions. The patient and/or caregivers are aware that any significant change in condition or worsening of symptoms should prompt an immediate return to this or the closest emergency department or a call to 911. Free Text Depart NotesFree Text Depart NotesF.U WITH PCP IN 2 DAYSCOME TO ER IF ANY WORSENINGPATIENT AND FAMILY VOICED UNDERSTANDING Supervising Physician Note Scribe StatementNoble Boyce, 02/23/19 1601, scribing for and in the presence of Dr. FieldsSigned By: Noble Boyce, 02/23/19 1601 Provider Scribed StatementI personally performed the services described in this documentation and reviewedthe documentation that was dictated to the scribe(s) in my presence, and it accurately records my words and actions. Theresa Fields, 02/23/19 Portions of this section were scribed by Noble Boyce on 02/23/19 at 1727 at 2004RPT #:[id number] OF REPORTEDEmergency department [id number]:48:00E.[id number] 275AVAvailable for patient [id number]:04:37 2019-01-11 12:19:00 [id number] [place], [place] PATIENT NAME: HEATHER HOPE TIERRA ADMIT DATE: 12/07/18ACCOUNT NO: [id number] ROOM NO: D.V402 AGE: 28 REPORT TYPE: 360 - QUERY RESPONSE DOCUMENT SEX: F ADMITTING PHYSICIAN:Jorgito Livingston III, MD ATTENDING PHYSICIAN:Jorgito Livingston III, MD Provider Query QUERY TEXT: Specificity General 360MD Query related questions should be directed to: [facility] Coding Query Hotline Please provide any known specificity for [major depressive disorder single episode] documented in the [Behavioral treatment plan s,pg1,12/08/18][Major depression:Based on your medical judgment, can you specify was the patient's major depressive disorder> A single episode or recurrent?> Mild, moderate, severe, other specified, unspecified ?> With or without psychosis ?] The patient's Clinical Indicators include:major depressive disorder single episode -Behavioral treatment plan s,pg1,12/08/18Depression with SI - H and P c,pg 1,12/07/18Admitted for inpatient psych treatment- H and P c,pg 2,12/07/18MDD R/S - OE Orders discharge report c,pg 9,12/07/18 Standard options include:-- Respond - Create New Note Now-- Disagree - Not applicable / Not valid-- Disagree - Clinically unable to determine / Unknown-- Assign to another providerQUERY RESPONSE: Provider was unable to determine a response for this query. Query created by: Anna Murguia on 12/11/2018 1:48 AM QUERY TEXT: Specificity General 360MD Query related questions should be directed to: [facility] coding hotline Please provide any known specificity for (Based on your medical judgment, can you specify was the patient's major depressive disorder)> A single episode or recurrent?> Mild, moderate, severe, other specified, unspecified ?> With or without psychosis ? The patient's Clinical Indicators include:Depression - Psychiatric Medical H and P 12/07/2018shaking and hallucinations - ED PHYSICIAN RECORD 12/06/2018Suicidal thoughts - ED PHYSICIAN RECORD 12/06/2018LORazepam 2 MG/ML VIAL- MAR 12/06/2018 Standard options include:-- Respond - Create New Note Now-- Disagree - Not applicable / Not valid-- Disagree - Clinically unable to determine / Unknown-- Assign to another providerQUERY RESPONSE: Provider was unable to determine a response for this query. Query created by: Anna Murguia on 12/24/2018 4:09 AM Electronically signed by: Jorgito Taylor ( ) 01/11/2019 12:18 PM at 1219 PATIENT NAME: HEATHER HOPE noteD.[id number] for patient [id number]:13:06 2018-12-06 12:10:00 [id number]:10:00 [facility] PROVIDER REPORTREPORT#:[id number] REPORT STATUS: SignedDATE:12/06/18 TIME: 1210 PATIENT: HEATHER HOPE UNIT #: [id number]#: [id number] ROOM/BED:AGE: 28 SEX: F PCP PHYS: Cher Neville DOSERVICE AUTHOR: Jacob Godoy MD * ALL edits or amendments must be made on the electronic/computer document * Jacob Godoy 12/06/18 1210:HPI-Seizure GeneralConfirmed Patient YesPatient Type New patient PresentationChief Complaint Seizure, generalized, Abnormal movementsSeizure Anatomic Location GeneralizedOnset of Sx (Nursing) Date: 12/05/18Hx Obtained From Patient, FamilyOnset Occurred YesterdaySymptom Duration Since onsetProgression since Onset UnchangedQuality PainfulRadiation Does not radiateSeverity: Onset ModerateSeverity: Current ModerateAssociated withDenies: Vomiting. Associated Other Pt denies other symptomsExacerbated by NothingRelieved by Nothing Free Text HPI NotesFree Text HPI Notes28 YO F with PMHx of seizure disorders presents to ED with c/o shaking and hallucinations associating with her hx of seizures. Family member reports she had 3 seizures yesterday and had 2 seizures last week. Prior to her seizures, she was fine. She takes keppra 1500 mg a BID. 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 Primarylow the patient has been in an excessively amount of her stress due to the deviation and issues with the custody of her older son. Also the bsjtlf-yj-uso explained that the patient is been admitted at [facility] before. Even though this episode has been reported as seizures, the movement that the patient has been expressing here in the emergency department are voluntarily, while she is talking and answering questions, which are very highly suggestive of conversion disorder versus voluntary movements instead of seizures. Portions of this section were scribed by Swathi Avina on 12/06/18 at 1631 Review of Systems ROS StatementsAll systems rev neg except as marked. Focused Review of SystemsConstitutionalReports: Weakness - generalized. EyesDenies: Eye pain bilat, Redness bilat, Visual loss bilat. Ears/Nose/ThroatDenies: Earache bilat, Nasal congestion, Sore throat. RespiratoryDenies: Cough, non-productive, Cough, productive, Shortness of breath. CardiovascularDenies: Chest pain, Syncope. MusculoskeletalDenies: Back pain, Extremity pain. SkinDenies: Diaphoresis, Rash. NeurologicReports: Seizure, Shaking. Portions of this section were scribed by Swathi Avina on 12/06/18 at 1211 Past Medical History - AdultStated Complaint SEIZURESAllergiesCoded Allergies:No Known Allergies (05/08/17) Review of Nursing Notes Rev avail, and agreePast Medical History:Reports: Seizure disorder. Alcohol Use Denies EtOH useDrug Use Denies recreational drugsOccupationunemployed Portions of this section were scribed by Swathi Avina on 12/06/18 at 1211 Physical Exam Vital SignsVital SignsFirst Documented: Result Date Time Pulse Ox 100 12/06 1203 B/P 149/90 12/06 1203 B/P Mean 109 12/06 1203 O2 Delivery Room air 12/06 1203 Temp 36.7 12/06 1203 Pulse 48 12/06 1203 Resp 20 12/06 1203 Last Documented: Result Date Time Pulse Ox 99 12/06 1607 B/P 136/75 12/06 1607 B/P Mean 95 12/06 1607 O2 Delivery Room air 12/06 1607 Pulse 74 12/06 1607 Resp 20 12/06 1330 Temp 36.7 12/06 1203 Review of Vital Signs Reviewed Basic Physical ExamBasic PE HEAD: Atraumatic/NC, EYES: PERRL, conj clear, ENT: Membranes moist, ABD: Soft/non-tender, EXT: No gross abnormality, SKIN: No rashes, warm/dry, PSYCH: NL thought content Focused PEGeneral/Const General/Const Awake, AlertMS Head Head NormocephalicEyes Eyes PERRL, EOMIEars/Nose/Throat Ears/Nose/Throat Airway patent, Mucous membranes moist, Pharynx NLMS Neck Neck SuppleResp/Chest Respiratory/Chest Breath sounds NL, Breath sounds = bilat, No respiratory distress, No rales, No rhonchiCardiovascular Cardiovascular Heart rate NL, Regular rhythm, Heart sounds NLAbdomen/GI Abdomen/GI Soft, Non-tenderMS Upper Extrem Upper Extremity/MS Inspection NL, Full range of motionMS Lower Extrem Lower Ext/Pelvis/MS Full range of motionNeurologic Text/Dict NotesPatient is making voluntary movements. Very unlikely tonic-clonic movements suggesting seizures Portions of this section were scribed by Swathi Avina on 12/06/18 at 1631 Interpretation Diagnostics Lab Results InterpretationConsiderations Independ review imaging, Reviewed prior recordsResultsLaboratory Tests 12/06/18 1340:[Embedded Image Not Available] 12/06/18 1320:[Embedded Image Not Available]Laboratory Tests: 12/06 12/06 12/06 12/06 12/06 1348 1347 1340 1340 1320Chemistry Sodium (133 - 145 MMOL/L) 140 Potassium (3.6 - 5.2 MMOL/L) 4.3 Chloride (100 - 108 MMOL/L) 104 Carbon Dioxide (22 - 32 MMOL/L) 22 BUN (6 - 20 MG/DL) 10 Creatinine (0.60 - 1.00 MG/DL) 0.55 L Estimated GFR (MDRD) (71 - 165) 131 Glucose (65 - 99 MG/DL) 91 POC Glucose (65 - 99 MG/DL) 88 POC Lactic Acid (0.90 - 1.70 MMOL/L) 0.97 Calcium (8.7 - 10.5 MG/DL) 9.4 Total Bilirubin (0.0 - 1.0 MG/DL) 0.5 Direct Bilirubin (0.0 - 0.3 MG/DL) 0.2 Indirect Bilirubin (0.0 - 0.7 MG/DL) 0.3 AST (15 - 37 Units/L) 25 ALT (30 - 65 Units/L) 43 Alkaline Phosphatase (50 - 136 Units/L) 74 Creatine Kinase (26 - 192 Units/L) 87 Total Protein (6.4 - 8.2 G/DL) 7.6 Albumin (3.4 - 5.0 G/DL) 4.2 Globulin (1.5 - 3.8 G/DL) 3.4 Albumin/Globulin Ratio (1.1 - 2.2) 1.2Hematology WBC (4.80 - 10.80 x10 3/uL) 10.42 RBC (4.2 - 5.4 x10 6/uL) 4.71 Hgb (12.0 - 16.0 G/DL) 11.3 L Hct (37 - 47 %) 35.7 L MCV (81 - 99 FL) 75.8 L MCH (27 - 31 PG) 24.0 L MCHC (33 - 37 G/DL) 31.7 L RDW Coeff of Jean (11.5 - 14.5 %) 15.4 H Plt Count (150 - 450 x10 3/uL) 258 MPV (7.4 - 10.4 FL) 10.9 H Neut % (Auto) (42 - 86 %) 72.0 Lymph % (Auto) (24 - 44 %) 17.9 L [place] % (Auto) (0.0 - 4.0 %) 8.4 H Eos % (Auto) (0.0 - 2.7 %) 1.2 Baso % (Auto) (0.0 - 0.5 %) 0.5 Eos # (Auto) (0.0 - 0.5 x10 3/uL) 0.12 Baso # (Auto) (0.0 - 0.2 x10 3/uL) 0.05 Absolute Neuts (auto) (1.8 - 7.7 7.51x10 3/uL) Absolute Lymphs (auto) (1.0 - 4.8 1.86x10 3/uL) Absolute Monos (auto) (0.0 - 0.8 0.88 Hx10 3/uL)Toxicology Salicylates (0 - 20 MG/DL) < 3 Acetaminophen (10 - 30 MCG/ML) < 1 L Serum Alcohol (0 - 10 MG/DL) < 3 12/06 12/06 1300 1300 Toxicology Urine Opiates Screen (NEGATIVE) NEGATIVE Ur Barbiturates Screen (NEGATIVE) NEGATIVE Ur Phencyclidine Scrn (NEGATIVE) NEGATIVE Ur Amphetamine Screen (NEGATIVE) NEGATIVE MDMA (NEGATIVE) NEGATIVE U Benzodiazepines Scrn (NEGATIVE) NEGATIVE Urine Cocaine Screen (NEGATIVE) NEGATIVE U Cannabinoids Screen (NEGATIVE) NEGATIVE Urines Ur Spec Description Clean Catch Urine Color (YELLOW) YELLOW Urine Appearance (CLEAR) CLEAR Urine pH (5.5 - 7.0) 8.0 H Ur Specific Mccormick (1.001 - 1.035) 1.010 Urine Protein (NEGATIVE mg/dL) NEGATIVE Urine Glucose (UA) (NEGATIVE mg/dL) NEGATIVE Urine Ketones (NEGATIVE mg/dL) NEGATIVE Urine Blood (NEGATIVE) 4+ H Urine Nitrite (NEGATIVE) NEGATIVE Urine Bilirubin (NEGATIVE) NEGATIVE Urine Urobilinogen (NORMAL mg/dL) NORMAL Ur Leukocyte Esterase (NEGATIVE) NEGATIVE Urine RBC (NONE SEEN #/hpf) 0-2 H Urine WBC (<10 #/hpf) < 10 Ur Squamous Epith Cells (<100 #/lpf) 0 - 20 Urine Bacteria (NONE SEEN #/hpf) RARE Urine Mucus (NONE SEEN #/lpf) 1+ Urine HCG, Qual (NEGATIVE) NEGATIVE Urine Comment VOLUME 10-12 ML Lab Imaging StatementLaboratory radiographic studies reviewed and considered in the medical decision-making. Point of Care TestingPulse Oximetry Pulse Ox % 100 On: Room air Interpretation Interpreted by me, Pulse oximetry normal Time 1202 ECG #1 InterpretationText/Dict NoteNormal sinus rhythm. Normal ECG.ECG Documented in MUSE YesDate 12/06/18Time 1233Interpreted by ED physicianNL ECG Interpretation Normal rate, Normal sinus rhythm, No acute ischemic changes, No STEMI, Normal axis, Normal intervals, Adequate tracingRate 96 Portions of this section were scribed by Swathi Avina on 12/06/18 at 1631 Re-Evaluation MDM Free Text MDM NotesFree Text MDM [id number]:Nurse spoke with family and these tonic clonic episodes can be stress related. Patient has been staying with bljddp-ab-qqe because she had a feeling an episodewould happen due to patient trying to fight custody over her older son between the patient's mother and step-father. 28-year-old woman with past medical history of seizures currently taking Keppra 1500 mg p.o. twice daily presented today after having multiple external type movements. On arrival to the emergency department the patient was having involuntary movements was talking initially and then she chooses not to talk not to move forseveral hours. IV fluids and Ativan were given and after 4 hours the patient started talking and stated that she was suicidal the night before and she is having visual hallucinations denied auditory hallucinations denies homicidal ideations denies delusions. The morning low make a phone call and he stated that the patient is having a lotof stress for the bottle of the custody of her son and also stated that the patient has been admitted at [facility] before. The patient has been requested to be evaluated by [facility] currently at shift change we are waiting for [facility] to evaluate the patient. Patient will be transferred over to Dr. Johns Re-Evaluation/Progress #1Text/Dict NotePatient has finally come out for her conversion of statement. States she has SI with no plan and has visual hallucinations. Denies alcohol and drug abuse. Denies smoking. Time of Re-Eval 1632 ED CourseMedication(s) OrderedMedication(s) Ordered:Central Nervous System Agents Sig/Godfrey Start time Last Medication Dose Route Stop Time Status Admin Phenytoin Sodium 300 MG X1ED STA 12/06 1945 DC 12/06 PO 12/06 194 1950 Fosphenytoin Sodium 1,000 MG X1ED STA 12/06 1853 DC Sodium Chloride 100 ML IV 12/06 1922 Lorazepam 1 MG X1ED STA 12/06 1211 DC 12/06 IV 12/06 1212 1345 Electrolytic, Caloric, And Caren Sig/Godfrey Start time Last Medication Dose Route Stop Time Status Admin Sodium Chloride 1,000 ML X1ED STA 12/06 1211 DC 12/06 IV 12/06 1310 1342 Portions of this section were scribed by Swathi Avina on 12/06/18 at 1631 Patient Discharge Departure Vital Signs/ConditionVital SignsFirst Documented: Result Date Time Pulse Ox 100 12/06 1203 B/P 149/90 12/06 1203 B/P Mean 109 12/06 1203 O2 Delivery Room air 12/06 1203 Temp 36.7 12/06 1203 Pulse 48 12/06 1203 Resp 20 12/06 1203 Last Documented: Result Date Time Pulse Ox 99 12/06 1607 B/P 136/75 12/06 1607 B/P Mean 95 12/06 1607 O2 Delivery Room air 12/06 1607 Pulse 74 12/06 1607 Resp 20 12/06 1330 Temp 36.7 12/06 1203 All vital signs available at the time of this entry have been reviewed. Pt/Provider Handoff Handoff NoteThis patient's care has been transferred to and accepted by [facility] at 19:00. We discussed: the patient's chief complaint; labs and imaging that have been completed and those that are still pending; procedures that have been completed and those remaining to be done; any treatment provided and the patient's response to treatment; any significant change in condition; input from consultants if any; the treatment plan prior to the transfer of care. The accepting physician will follow up on all pending labs and imaging and make any necessary changes to the current impression and/or treatment plan. The acceptingphysician is now responsible for the patient's care and final disposition. Supervising Physician Note Scribe Swathi Santiago, 12/06/18 1210, scribing for and in the presence of [Dr. Dale].Signed By: Swathi Avina, 12/06/18 1210 Provider Scribed Jim personally performed the services described in this documentation and reviewedthe documentation that was dictated to the scribe(s) in my presence, and it accurately records my words and actions. Jacob Godoy, 12/06/18 Portions of this section were scribed by Swathi Avina on 12/06/18 at 1631 Authenticated by Jacob Godoy MD on 12/06/18 at 1819 Kathryn Urrutia 12/06/18 2309:HPI-Seizure GeneralInitial Greet Date/Time 12/06/18 1211 Past Medical History - AdultHome MedicationsDiscontinued ScriptsFERROUS SULFATE (FEOSOL) 325 MG PO BID FERROUS SULFATE (FEOSOL) 325 MG PO BID #60 TAB Prov: 09/18/18 DC: 12/06/18 1828 Changed since prior admitLACOSAMIDE (VIMPAT) 100 MG PO Q12HR LACOSAMIDE (VIMPAT) 100 MG PO Q12HR #60 TAB Prov: 09/18/18 DC: 12/06/18 1828 Changed since prior admit Reported MedicationslevETIRAcetam (KEPPRA) 1,000 MG PO BID [FYCOMPA] 4 MG PO BEDTIME Discontinued Reported MedicationsFOLIC ACID 2 MG PO BID Physical Exam Vital SignsVital Signs Interpretation Diagnostics Lab Results InterpretationResults Re-Evaluation [facility] ED CourseMedication(s) Ordered Patient Discharge Departure Vital Signs/ConditionVital Signs Clinical ImpressionClinical ImpressionPrimary Impression: SeizureSecondary Impressions: Suicidal thoughts Disposition DecisionAdmit Admit Physician Name Staci Batista MD Request Time 2308 Request Date 12/06/18 )( Admission Accepts Yes )( Accepted Time 2308 )( Accepted Date 12/06/18 Discharge/Care Plan Admit NoteI have spoken with the patient and/or caregivers. I have explained the patient'scondition, diagnoses and treatment plan based on the information available to meat this time. I have answered the patient's and/or caregiver's questions and addressed any concerns. The patient and/or caregivers have as good an understanding of the patient's diagnosis, condition and treatment plan as can beexpected at this point. The patient has been stabilized within the capability ofthe emergency department. The patient will be transported for further care and management or will be moved to an observation or inpatient service. I have communicated with the staff or medical practitioner taking over this patient's care. at 0015RPT #:[id number] OF REPORTEDEmerfive [facility] medical center department iesbro9275-05-09X68:10:00D.[id number] 424AVAvailable for patient [id number]:15:42 2018-12-06 12:10:00 [id number]:10:00 [facility] PROVIDER REPORTREPORT#:[id number] REPORT STATUS: SignedDATE:12/06/18 TIME: 1210 PATIENT: HEATHER HOPE UNIT #: [id number]#: [id number] ROOM/BED: W309-6IZD: 28 SEX: F PCP PHYS: Cher Neville DOSERVICE AUTHOR: Jacob Godoy MD * ALL edits or amendments must be made on the electronic/computer document * Jacob Godoy 12/06/18 1210:HPI-Seizure GeneralConfirmed Patient YesPatient Type New patientInitial Greet Date/Time 12/06/18 1211 PresentationChief Complaint Seizure, generalized, Abnormal movementsSeizure Anatomic Location GeneralizedOnset of Sx (Nursing) Date: 12/05/18Hx Obtained From Patient, FamilyOnset Occurred YesterdaySymptom Duration Since onsetProgression since Onset UnchangedQuality PainfulRadiation Does not radiateSeverity: Onset ModerateSeverity: Current ModerateAssociated withDenies: Vomiting. Associated Other Pt denies other symptomsExacerbated by NothingRelieved by Nothing Free Text HPI NotesFree Text HPI Notes28 YO F with PMHx of seizure disorders presents to ED with c/o shaking and hallucinations associating with her hx of seizures. Family member reports she had 3 seizures yesterday and had 2 seizures last week. Prior to her seizures, she was fine. She takes keppra 1500 mg a BID. 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 Primarylow the patient has been in an excessively amount of her stress due to the deviation and issues with the custody of her older son. Also the qcxavo-cn-kfb explained that the patient is been admitted at [facility] before. Even though this episode has been reported as seizures, the movement that the patient has been expressing here in the emergency department are voluntarily, while she is talking and answering questions, which are very highly suggestive of conversion disorder versus voluntary movements instead of seizures. Portions of this section were scribed by Swathi Avina on 12/06/18 at 1631 Review of Systems ROS StatementsAll systems rev neg except as marked. Focused Review of SystemsConstitutionalReports: Weakness - generalized. EyesDenies: Eye pain bilat, Redness bilat, Visual loss bilat. Ears/Nose/ThroatDenies: Earache bilat, Nasal congestion, Sore throat. RespiratoryDenies: Cough, non-productive, Cough, productive, Shortness of breath. CardiovascularDenies: Chest pain, Syncope. MusculoskeletalDenies: Back pain, Extremity pain. SkinDenies: Diaphoresis, Rash. NeurologicReports: Seizure, Shaking. Portions of this section were scribed by Swathi Avina on 12/06/18 at 1211 Past Medical History - AdultStated Complaint SEIZURESAllergiesCoded Allergies:No Known Allergies (05/08/17) Home MedicationsDiscontinued ScriptsFERROUS SULFATE (FEOSOL) 325 MG PO BID FERROUS SULFATE (FEOSOL) 325 MG PO BID #60 TAB Prov: 09/18/18 DC: 12/06/18 1828 Changed since prior admitLACOSAMIDE (VIMPAT) 100 MG PO Q12HR LACOSAMIDE (VIMPAT) 100 MG PO Q12HR #60 TAB Prov: 09/18/18 DC: 12/06/18 1828 Changed since prior admit Reported Medications[FYCOMPA] 4 MG PO BEDTIME levETIRAcetam (KEPPRA) 1,500 BID Discontinued Reported MedicationslevETIRAcetam (KEPPRA) 1,000 MG PO BID FOLIC ACID 2 MG PO BID Review of Nursing Notes Rev avail, and agreePast Medical History:Reports: Seizure disorder. Alcohol Use Denies EtOH useDrug Use Denies recreational drugsOccupationunemployed Portions of this section were scribed by Swathi Avina on 12/06/18 at 1211 Physical Exam Vital SignsVital Signs Review of Vital Signs Reviewed Basic Physical ExamBasic PE HEAD: Atraumatic/NC, EYES: PERRL, conj clear, ENT: Membranes moist, ABD: Soft/non-tender, EXT: No gross abnormality, SKIN: No rashes, warm/dry, PSYCH: NL thought content Focused PEGeneral/Const General/Const Awake, AlertMS Head Head NormocephalicEyes Eyes PERRL, EOMIEars/Nose/Throat Ears/Nose/Throat Airway patent, Mucous membranes moist, Pharynx NLMS Neck Neck SuppleResp/Chest Respiratory/Chest Breath sounds NL, Breath sounds = bilat, No respiratory distress, No rales, No rhonchiCardiovascular Cardiovascular Heart rate NL, Regular rhythm, Heart sounds NLAbdomen/GI Abdomen/GI Soft, Non-tenderMS Upper Extrem Upper Extremity/MS Inspection NL, Full range of motionMS Lower Extrem Lower Ext/Pelvis/MS Full range of motionNeurologic Text/Dict NotesPatient is making voluntary movements. Very unlikely tonic-clonic movements suggesting seizures Portions of this section were scribed by Swathi Avina on 12/06/18 at 1631 Interpretation Diagnostics Lab Results InterpretationConsiderations Independ review imaging, Reviewed prior recordsResults Lab Imaging StatementLaboratory radiographic studies reviewed and considered in the medical decision-making. Point of Care TestingPulse Oximetry Pulse Ox % 100 On: Room air Interpretation Interpreted by me, Pulse oximetry normal Time 1202 ECG #1 InterpretationText/Dict NoteNormal sinus rhythm. Normal ECG.ECG Documented in MUSE YesDate 12/06/18Time 1233Interpreted by ED physicianNL ECG Interpretation Normal rate, Normal sinus rhythm, No acute ischemic changes, No STEMI, Normal axis, Normal intervals, Adequate tracingRate 96 Portions of this section were scribed by Swathi Avina on 12/06/18 at 1631 Re-Evaluation MDM Free Text MDM NotesFree Text MDM [id number]:Nurse spoke with family and these tonic clonic episodes can be stress related. Patient has been staying with [facility] because she had a feeling an episodewould happen due to patient trying to fight custody over her older son between the patient's mother and step-father. 28-year-old woman with past medical history of seizures currently taking Keppra 1500 mg p.o. twice daily presented today after having multiple external type movements. On arrival to the emergency department the patient was having involuntary movements was talking initially and then she chooses not to talk not to move forseveral hours. IV fluids and Ativan were given and after 4 hours the patient started talking and stated that she was suicidal the night before and she is having visual hallucinations denied auditory hallucinations denies homicidal ideations denies delusions. The morning low make a phone call and he stated that the patient is having a lotof stress for the bottle of the custody of her son and also stated that the patient has been admitted at [facility] before. The patient has been requested to be evaluated by [facility] currently at shift change we are waiting for [facility] to evaluate the patient. Patient will be transferred over to Dr. Elkalini Re-Evaluation/Progress #1Text/Dict NotePatient has finally come out for her conversion of statement. States she has SI with no plan and has visual hallucinations. Denies alcohol and drug abuse. Denies smoking. Time of Re-Eval 1632 ED CourseMedication(s) OrderedMedication(s) Ordered:Central Nervous System Agents Sig/Godfrey Start time Last Medication Dose Route Stop Time Status Admin Phenytoin Sodium 300 MG X1ED STA 12/06 1945 DC 12/06 PO 12/06 1945 1950 Fosphenytoin Sodium 1,000 MG X1ED STA 12/06 1853 DC Sodium Chloride 100 ML IV 12/06 1922 Lorazepam 1 MG X1ED STA 12/06 1211 DC / IV 12/06 1212 1345 Electrolytic, Caloric, And Caren Sig/Godfrey Start time Last Medication Dose Route Stop Time Status Admin Sodium Chloride 1,000 ML X1ED STA 12/06 1211 DC 12/06 IV 12/06 1310 1342 Portions of this section were scribed by Swathi Avina on 12/06/18 at 1631 Patient Discharge Departure Vital Signs/ConditionVital SignsFirst Documented: Result Date Time Pulse Ox 100 12/06 1203 B/P 149/90 12/06 1203 B/P Mean 109 12/06 1203 O2 Delivery Room air 12/06 1203 Temp 36.7 12/06 1203 Pulse 48 12/06 1203 Resp 20 12/06 1203 Last Documented: Result Date Time Pulse Ox 99 12/06 1607 B/P 136/75 12/06 1607 B/P Mean 95 12/06 1607 O2 Delivery Room air 12/06 1607 Pulse 74 12/06 1607 Resp 20 12/06 1330 Temp 36.7 12/06 1203 All vital signs available at the time of this entry have been reviewed. Pt/Provider Handoff Handoff NoteThis patient's care has been transferred to and accepted by [facility] at 19:00. We discussed: the patient's chief complaint; labs and imaging that have been completed and those that are still pending; procedures that have been completed and those remaining to be done; any treatment provided and the patient's response to treatment; any significant change in condition; input from consultants if any; the treatment plan prior to the transfer of care. The accepting physician will follow up on all pending labs and imaging and make any necessary changes to the current impression and/or treatment plan. The acceptingphysician is now responsible for the patient's care and final disposition. Supervising Physician Note Scribe Swathi Santiago, 12/06/18 1210, scribing for and in the presence of [Dr. Dale].Signed By: Swathi Avina, 12/06/18 1210 Provider Scribed StatementI personally performed the services described in this documentation and reviewedthe documentation that was dictated to the scribe(s) in my presence, and it accurately records my words and actions. Jacob Godoy, 12/06/18 Portions of this section were scribed by Swathi Avina on 12/06/18 at 1631 Kathryn Urrutia 12/06/18 2309:Physical Exam Vital SignsVital SignsFirst Documented: Result Date Time Pulse Ox 100 12/06 1203 B/P 149/90 12/06 1203 B/P Mean 109 12/06 1203 O2 Delivery Room air 12/06 1203 Temp 98.0 12/06 1203 Pulse 48 12/06 1203 Resp 20 12/06 1203 Last Documented: Result Date Time Pulse Ox 99 12/06 1607 B/P 136/75 12/06 1607 B/P Mean 95 12/06 1607 O2 Delivery Room air 12/06 1607 Pulse 74 12/06 1607 Resp 20 12/06 1330 Temp 98.0 12/06 1203 Interpretation Diagnostics Lab Results InterpretationResultsLaboratory Tests 12/06/18 1340:[Embedded Image Not Available] 12/06/18 1320:[Embedded Image Not Available]Laboratory Tests: 12/06 12/06 12/06 12/06 1348 1347 1340 1340 Chemistry Sodium (133 - 145 MMOL/L) 140 Potassium (3.6 - 5.2 MMOL/L) 4.3 Chloride (100 - 108 MMOL/L) 104 Carbon Dioxide (22 - 32 MMOL/L) 22 BUN (6 - 20 MG/DL) 10 Creatinine (0.60 - 1.00 MG/DL) 0.55 L Estimated GFR (MDRD) (71 - 165) 131 Glucose (65 - 99 MG/DL) 91 POC Glucose (65 - 99 MG/DL) 88 Hemoglobin A1c (4.5 - 6.2 % TOT HB) 5.8 POC Lactic Acid (0.90 - 1.70 MMOL/L) 0.97 Calcium (8.7 - 10.5 MG/DL) 9.4 Total Bilirubin (0.0 - 1.0 MG/DL) 0.5 Direct Bilirubin (0.0 - 0.3 MG/DL) 0.2 Indirect Bilirubin (0.0 - 0.7 MG/DL) 0.3 AST (15 - 37 Units/L) 25 ALT (30 - 65 Units/L) 43 Alkaline Phosphatase (50 - 136 Units/L) 74 Creatine Kinase (26 - 192 Units/L) 87 Total Protein (6.4 - 8.2 G/DL) 7.6 Albumin (3.4 - 5.0 G/DL) 4.2 Globulin (1.5 - 3.8 G/DL) 3.4 Albumin/Globulin Ratio (1.1 - 2.2) 1.2 Serology RPR (Nonreactive) Nonreactive Toxicology Salicylates (0 - 20 MG/DL) < 3 Acetaminophen (10 - 30 MCG/ML) < 1 L Serum Alcohol (0 - 10 MG/DL) < 3 24 12/06 1320 1300 Hematology WBC (4.80 - 10.80 x10 3/uL) 10.42 RBC (4.2 - 5.4 x10 6/uL) 4.71 Hgb (12.0 - 16.0 G/DL) 11.3 L Hct (37 - 47 %) 35.7 L MCV (81 - 99 FL) 75.8 L MCH (27 - 31 PG) 24.0 L MCHC (33 - 37 G/DL) 31.7 L RDW Coeff of Jean (11.5 - 14.5 %) 15.4 H Plt Count (150 - 450 x10 3/uL) 258 MPV (7.4 - 10.4 FL) 10.9 H Neut % (Auto) (42 - 86 %) 72.0 Lymph % (Auto) (24 - 44 %) 17.9 L [place] % (Auto) (0.0 - 4.0 %) 8.4 H Eos % (Auto) (0.0 - 2.7 %) 1.2 Baso % (Auto) (0.0 - 0.5 %) 0.5 Eos # (Auto) (0.0 - 0.5 x10 3/uL) 0.12 Baso # (Auto) (0.0 - 0.2 x10 3/uL) 0.05 Absolute Neuts (auto) (1.8 - 7.7 x10 3/uL) 7.51 Absolute Lymphs (auto) (1.0 - 4.8 x10 3/uL) 1.86 Absolute Monos (auto) (0.0 - 0.8 x10 3/uL) 0.88 H Urines Urine HCG, Qual (NEGATIVE) NEGATIVE 12/06 1300 Toxicology Urine Opiates Screen (NEGATIVE) NEGATIVE Ur Barbiturates Screen (NEGATIVE) NEGATIVE Ur Phencyclidine Scrn (NEGATIVE) NEGATIVE Ur Amphetamine Screen (NEGATIVE) NEGATIVE MDMA (NEGATIVE) NEGATIVE U Benzodiazepines Scrn (NEGATIVE) NEGATIVE Urine Cocaine Screen (NEGATIVE) NEGATIVE U Cannabinoids Screen (NEGATIVE) NEGATIVE Urines Ur Spec Description Clean Catch Urine Color (YELLOW) YELLOW Urine Appearance (CLEAR) CLEAR Urine pH (5.5 - 7.0) 8.0 H Ur Specific Mccormick (1.001 - 1.035) 1.010 Urine Protein (NEGATIVE mg/dL) NEGATIVE Urine Glucose (UA) (NEGATIVE mg/dL) NEGATIVE Urine Ketones (NEGATIVE mg/dL) NEGATIVE Urine Blood (NEGATIVE) 4+ H Urine Nitrite (NEGATIVE) NEGATIVE Urine Bilirubin (NEGATIVE) NEGATIVE Urine Urobilinogen (NORMAL mg/dL) NORMAL Ur Leukocyte Esterase (NEGATIVE) NEGATIVE Urine RBC (NONE SEEN #/hpf) 0-2 H Urine WBC (<10 #/hpf) < 10 Ur Squamous Epith Cells (<100 #/lpf) 0 - 20 Urine Bacteria (NONE SEEN #/hpf) RARE Urine Mucus (NONE SEEN #/lpf) 1+ Urine Comment VOLUME 10-12 ML Re-Evaluation [facility] ED CourseMedication(s) Ordered Patient Discharge Departure Vital Signs/ConditionVital Signs Clinical ImpressionClinical ImpressionPrimary Impression: SeizureSecondary Impressions: Suicidal thoughts Disposition DecisionAdmit Admit Physician Name Staci Batista MD Request Time 2308 Request Date 12/06/18 )( Admission Accepts Yes )( Accepted Time 2308 )( Accepted Date 12/06/18 Discharge/Care Plan Admit NoteI have spoken with the patient and/or caregivers. I have explained the patient'scondition, diagnoses and treatment plan based on the information available to meat this time. I have answered the patient's and/or caregiver's questions and addressed any concerns. The patient and/or caregivers have as good an understanding of the patient's diagnosis, condition and treatment plan as can beexpected at this point. The patient has been stabilized within the capability ofthe emergency department. The patient will be transported for further care and management or will be moved to an observation or inpatient service. I have communicated with the staff or medical practitioner taking over this patient's care. at 0015 at 1027RPT #:[id number] OF REPORTEDEmerfive [facility] department [id number]:10:00D.[id number] 424AVAvailable for patient ngsqOASQGUEJKIBBXP2305-63-56L58:27:52 2018-09-23 15:53:00 [id number]:53:62116 [facility] [address] [place], [place] PATIENT NAME: HEATHER HOPE ADMIT DATE: 09/14/18ACCOUNT NO: [id number] ROOM NO: D.D313 AGE: 27 REPORT TYPE: EEG REPORT SEX: F ADMITTING PHYSICIAN:Apolonia Mae MD ATTENDING PHYSICIAN:Apolonia Mae MD PROCEDURE: Electroencephalogram STUDY DATE: STUDY: EEG. OBJECTIVE: This is a 27-year-old woman with a history of seizure. EEG isobtained to rule out seizure focus and assess for encephalopathy. TECHNICAL: EEG was obtained using the international 10-20 system of electrodeplacement, 18 channels plus an EEG, 2 channels of eye movement, and 1 channel ofEKG was monitored throughout. Tracing was contaminated with 70-cycle andmovement artifact. Overall, technical quality was adequate. FINDINGS: The beginning of tracing was characterized by well-formed alphaactivity seen bioccipitally, accentuates with eye closing and attenuates witheye opening. There appears to be no cvcb-wh-xxav asymmetry. When the patientwas described as asleep. They appear to be some spindle activity seen xvbilbgehto-sw-xbds asymmetry. Later on, there was muscle artifact seen. There wassporadic episodes of diffuse delta right more prominent than the left. Photicstimulation was performed, did not alter the record. No sharp waves were seen. No spiking wave activity was noticed. No change in the background. IMPRESSION: This is a normal awake and sleep EEG. At this point, appears tohave no evidence for seizure focus or seizure activity. Clinical correlation isrequired. Dictated By: Jacob Gutierrez MD WT: EEG:D.NEURO/IMAN/NTSDD: 09/23/2018 15:53:29DT: 09/23/2018 16:15:22Conf#: [id number]/DID#: [id number] Authenticated by Jacob Gutierrez MD On 09/28/2018 09:20:09 AM at 0920 PATIENT NAME: HEATHER HOPE [id number]:15:00D.[id number] for patient [id number]:21:23 2018-09-18 13:59:00 [id number]:59:00 [facility])Hospitalist Discharge SummaryREPORT#:[id number] REPORT STATUS: SignedDATE:09/18/18 TIME: 1359 PATIENT: HEATHER HOPE UNIT #: [id number]#: [id number] [address]OZV: [address] AGE: 27 SEX: F ATTEND: Apolonia Mae AUTHOR: Apolonia Mae MD * ALL edits or amendments must be made on the electronic/computer document * PCP PCPDischarge to: home General InformationDate of admission:Observation Start Date: Date of admission: 09/14/18 Discharge date: 09/18/18Discharge diagnosis:Tonic seizures with complex partial onsetIron deficiency anemiaHospital course:The patient is a 27 year old female with PMHx of unspecified seizure presented to [facility] with chief complaint of escalating seizures. 4 days ago she experiencedmore seizures 3-5 episodes of seizures a day. In the ER she had one seizure episode last 5 mins and postictal for 10 mins; head CT was unremarkable. Home Keppra resumed. Patient however continued to have seizure episodes. Neurology was consulted. MRI ordered however was not good imaging due to motion artifact. EEG did not show any acute seizures. Patient can eat continued to have seizures while on Keppra. Vimpat was added. After Vimpat was added patient remains seizure-free for 24 hours. Will be discharged to home. Will need to follow-up with his neurologists in [facility]. On admission patient is noted to have normocytic anemia. No signs of bleeding. Iron studies show iron deficiency anemia. Oral iron supplement prescribed. Med Rec Med RecDischarge meds:Continue taking these medications:levETIRAcetam (KEPPRA) 750 MG TAB 1,500 MILLIGRAM ORAL TWICE DAILY. FOLIC ACID (FOLIC ACID) 1 MG TAB 2 MILLIGRAM ORAL TWICE DAILY. Start taking the following new medications:FERROUS SULFATE (FEOSOL) 325 MG TAB 325 MILLIGRAM ORAL TWICE DAILY. Qty = 60 No Refills LACOSAMIDE (VIMPAT) 50 MG TAB 100 MILLIGRAM ORAL EVERY 12 HOURS. Qty = 60 No Refills Discharge InstructionsDiet: regularActivity: as toleratedAdditional instructions:take your meds as directed no driving until cleared by doctor no tub bath, no operating of machineryDischarge management: greater than 30 mins Follow-up AppointmentsPCP: PCP: No Primary or Family Physician Follow up timeframe: In 1-2 weeksAttending Physician: Attending Physician: Apolonia Mae MD Ldbabilrdy provider 1: Provider 1: Jacob Gutierrez MD Specialty: NEUROLOGY Follow up timeframe: as instructed Objective GeneralVS/I O:Vital Signs: Date Time Temp Pulse Resp B/P B/P Pulse O2 O2 Flow FiO2 Mean Ox Delivery Rate 09/18 1151 98.1 125 18 116/78 90.4 100 Room air 09/18 0758 97.9 100 18 121/76 91.4 99 Room air 09/18 0351 97.7 117 18 124/84 97.5 98 04/ 0004 97.3 96 14 115/77 90.0 97 Room air 09/17 1927 97.9 120 18 114/78 89.8 98 Physical ExamGeneral appearance: alert, awake, orientedHead/Eyes: atraumatic, clear cornea, EOMIENT: moist mucosal membranes, normal nose, normal pharynxNeck: full range of motion, non-tender, normal thyroidCardiovascular: normal heart sounds, regular rate rhythmRespiratory: aerating well, clear to auscultation, symmetric expansionAbdomen: non-tender, normal bowel sounds, softExtremities: moves all, no edemaNeuro/PRACTICE SPECIALIST: alert, oriented X 3Skin: dry, intact, normal temperature at 1733 RPT #:[id number] OF REPORTDSDischarge [id number]:59:00D.[id number] for patient hqjkFYMRAIBITTTNUN1132-67-30S10:15:53 2018-09-18 08:25:00 [id number]:25:72457 [facility] [id number] [place], [place] PATIENT NAME: HEATHER HOPE NOVEMBER ADMIT DATE: 09/14/18ACCOUNT NO: [id number] ROOM NO: D.D313 AGE: 27 REPORT TYPE: PROGRESS NOTES SEX: F ADMITTING PHYSICIAN:Apolonia Mae MD ATTENDING PHYSICIAN:Apolonia Mae MD DATE: NEUROLOGICAL FOLLOWUP NOTE CHIEF COMPLAINT AND REASON FOR FOLLOWUP: Seizures. SUBJECTIVE: Ms. Hope is a pleasant woman. She states she had an uneventfulnight. She states she is watching television. She states she has had nofurther seizures. She denies any headaches, denies any evidence of soreness ofthe mouth, or tongue biting. She states she was able to go to the restroomindependently. OBJECTIVE: Discussed with nursing. She has had no further seizures throughoutthe night, has been approximately 24 hours since her last seizure. She has beenon Vimpat and Keppra at 100 and 3000 mg per day respectively. She did undergoEEG yesterday, which revealed no active seizure focus. MRI was of poor qualitybecause of movement, but no definite abnormalities were seen. Her CK shortlyafter several episodes has been normal. Her prolactin level has been minimallyelevated. PHYSICAL EXAMINATION:GENERAL: She is examined in room 313. She is in no acute distress.VITAL SIGNS: Blood pressure is 121/76, pulse rate is 100, she is supine,watching television.HEENT: Revealed no evidence of acute trauma. Sclerae nonicteric. Oropharynxis clear. Tongue is not bitten.NEUROLOGICAL: Motor examination reveals strength at least 4+/5 throughout. Gait was not assessed. There was no dysmetria, ataxia, or nystagmus. IMPRESSION: Tonic seizures with a complex partial onset. Ms. Hope now isapproximately 24-hour seizures without any evidence of significant side effectsof current medication. I discussed with her. She likely can be dischargedtoday on current regimen of Keppra 1500 mg b.i.d. and Vimpat 100 q. 12 hours aswell as folic acid 2 mg b.i.d. and iron supplementation. She will follow upwith her private neurologist in [place], [place], that is where she lives. Iwill follow up as needed. Dictated By: Jacob Gutierrez MD WT: PN:D.FANI/IMAN/LUIS EDUARDODD: 09/18/2018 08:25:48DT: 09/18/2018 09:23:30Conf#: [id number]/DID#: [id number] PATIENT NAME: HEATHER HOPE NOVEMBER Authenticated by Jacob Gutierrez MD On 09/20/2018 04:24:05 PM at 1624 PATIENT NAME: HEATHER HOPE NOVEMBER [id number]:23:00D.[id number] AVAvailable for patient mersPAXUSOPQJHVFCQ0313-21-93T21:50:12 2018-09-17 17:54:00 [id number]:54:[id number] [facility] [id number] [place], [place] PATIENT NAME: HEATHER HOPE ADMIT DATE: 09/14/18ACCOUNT NO: [id number] ROOM NO: D313 AGE: 27 REPORT TYPE: PROGRESS NOTES SEX: F ADMITTING PHYSICIAN:Apolonia Mae MD ATTENDING PHYSICIAN:Apolonia Mae MD DATE: 09/17/2018 PATIENT OF: Dr. Knowles and Dr. Mae. CHIEF COMPLAINT: Seizures. I saw her on the morning of 09/17/2018. SUBJECTIVE: She is discussed with her bliqci-ga-pby and both of them states sheis better. She only had one seizure earlier this morning and this lasted lessthan 3 minutes. Has not received any further benzodiazepines. OBJECTIVE: Discussed with nursing, she has had as described above one seizurelasted less than 3 minutes and did not take benzodiazepines. This morning, sheis awake and alert and conversive. She denies any headache. Denies anyweakness. We did obtain urinalysis and this was unremarkable. Her toxicologyhas been negative. We discussed addition of another anticonvulsant if seizurespersist. PHYSICAL EXAMINATION:GENERAL: She is examined in room 313. She was in no acute distress. She wasbreathing comfortably. She was supine in bed.LATEST VITAL SIGNS: Blood pressure this morning when I saw her 110/76,temperature of 97, pulse was 110. HEENT: Revealed no evidence of acute trauma. Sclerae nonicteric. Tonguerevealed no biting.NECK: Supple. There were no bruits appreciable.CARDIOVASCULAR: No murmurs.ABDOMEN: Bowel sounds positive, nontender.EXTREMITIES: No edema. Good peripheral pulses.NEUROLOGIC: She was awake and alert, oriented to person and place. She waspoorly cooperative. She was able to follow 1 and 2-step extremities specificcommands, but she would frequently close her eyes and not answer. She did moveall extremities at least 4+/5. IMPRESSION: Tonic seizures with possible focal onset. Ms. Hope is a pleasantwoman. She appears to have persistent seizures despite maximum doses of Keppra3 g per day. Her urinalysis has been negative. We will search for other causesof intercurrent illnesses as cause for precipitating seizures has been negative. After lengthy discussion with her and her lkvdgn-cg-osz we will add Vimpat withtherapy starting 100 b.i.d. Electroencephalogram is pending as is MRI. We willcontinue to follow with you. Dictated By: Jacob Gutierrez MD PATIENT NAME: HEATHER HOPE WT: PN:D.FANI/IMAN/NTSDD: 09/17/2018 17:54:43DT: 09/17/2018 18:28:11Conf#: [id number]/DID#: [id number] Authenticated by Jacob Gutierrez MD On 09/20/2018 04:24:03 PM at 1624 PATIENT NAME: HEATHER HOPE [id number]:28:00D.[id number] AVAvailable for patient [id number]:50:12 2018-09-17 13:12:00 [id number]:12:00 [facility])Hospitalist Progress NoteREPORT#:[id number] REPORT STATUS: SignedDATE:09/17/18 TIME: 1312 PATIENT: HEATHER HOPE UNIT #: [id number]#: [id number] [facility] AGE: 27 SEX: F ATTEND: Apolonia Mae AUTHOR: Apolonia Mae MD * ALL edits or amendments must be made on the electronic/computer document * Subjective Free Text Subj NotesFree Subj Notes:Still with multiple episodes of seizure, remains postictal postseizure episode vital signs stable Review of SystemsConstitutional:Denies: chills, fatigue, fever, generalized weakness. Skin:Denies: rash, swelling. ENT:Denies: nasal congestion, sore throat. Respiratory:Denies: PICHARDO (dyspnea on exertion), SOB, wheezing. Cardiovascular:Denies: chest pain, palpitations. GI:Reports: vomiting. Denies: abdominal pain, nausea. :Denies: dysuria, flank pain. Musculoskeletal:Denies: extremity pain, extremity swelling. Neuro:Denies: confusion, dizziness. Objective GeneralVS/I O:Vital Signs: Date Time Temp Pulse Resp B/P B/P Pulse O2 O2 Flow FiO2 Mean Ox Delivery Rate 09/18 1151 98.1 125 18 116/78 90.4 100 Room air 09/18 0758 97.9 100 18 121/76 91.4 99 Room air 09/18 0351 97.7 117 18 124/84 97.5 98 09/18 0004 97.3 96 14 115/77 90.0 97 Room air 09/17 1927 97.9 120 18 114/78 89.8 98 Physical ExamGeneral appearance: lethargicHead/Eyes: atraumatic, clear cornea, EOMIENT: moist mucosal membranes, normal nose, normal pharynxNeck: full range of motion, non-tender, normal thyroidCardiovascular: normal heart sounds, regular rate rhythmRespiratory: aerating well, clear to auscultation, symmetric expansionAbdomen: non-tender, normal bowel sounds, softExtremities: moves all, no edemaNeuro/PRACTICE SPECIALIST: lethargic post-ictalSkin: dry, intact, normal temperature Diagnosis, Assessment Plan Free Text DxA P NotesFree text DxA P notes:complex partial seizureseizure precaution-IV keppra , - recheck level of keppra - CT ahead/ negative, electrolytes WNL--consulted Dr. Gutierrez. EEG pendingMRI suboptimal imaging due to motionativan As needed for seizures. Received one-time dose of fosphenytoin. Continue Keppra, added vimpat-CK levels unremarkable post seizures-elevated procalcitonin iron deficiency anemia-as noted on iron studies-ferrous sulfate BID Regular diet when fully awake full codeSCD, lovenox at 1714 RPT #:[id number] OF REPORTPRProgress [id number]:12:00D.[id number] 0AVAvailable for patient nm[id number]:14:34 2018-09-16 15:18:00 [id number]:18:00 [facility] ([facility])Neurology Consultation NoteREPORT#:[id number] REPORT STATUS: SignedDATE:09/16/18 TIME: 1518 PATIENT: HEATHER HOPE UNIT #: [id number]#: [id number] ROOM/BED: B093-8WFG: 89 AGE: 27 SEX: F ATTEND: Fanny Knowles AUTHOR: Sandee Koenig DO R3 * ALL edits or amendments must be made on the electronic/computer document * History of Present Illness HPIRequesting clinician: Dr. Valdez for consult:Frequent seizuresChief complaint:seizuresHPI:Patient is a 27 y/o female with a PMH of seizures presents with frequent seizures. At our evaluation, patient is very somnolent due to having received ativan so most of the history is obtained from chart review and nbwzxk-vg-cax atbedside. She was diagnosed with seizures at age 16 and is currently on Keppra. She is has been compliant but is having more frequent seizures since childbirth 8 months ago. Patient follows with neurologist (Dr. German) in [facility] living in that area. Her seizure symptoms include closing eyes, 'body tensing', and lasts about 4-6 minutes. Patient reportedly had more tonic/clonic movements when she was first diagnosed. She is usually able to tell prior to onset and does not have any known triggers. No postictal state, loss of bowel/bladder control. Prior to hospitalization, patient was having about 3 seizures per week. Patient has had several episodes of seizures during this hospitalization, including 2 episodes already today. Serum keppra levels pendingat this time. History - Adult longitudinalPast medical history:Reports: Seizure disorder. Alcohol use: Denies EtOH useDrug use: Denies recreational drugsSmoking status for patients 13 years old or older: Never SmokerMedications:Home Medications: Medication Dose/Rte/Freq Days Qty Entered Last Max Daily Dose Reviewed levETIRAcetam (KEPPRA) 1,500 MG PO BID 10/17/17 09/15/18 Strength: 750 MG TAB 2044 242 FOLIC ACID 2 MG PO BID 10/17/17 09/15/18 Strength: 1 MG TAB 2044 242 Current Hospital Medications:Blood Formation,Coagulation Sig/Godfrey Start time Last Medication Dose Route Stop Time Status Admin Ferrous Sulfate 325 MG BID 09/15 899 AC 09/15 (FERROUS SULFATE) PO 11/14 0901 1708 Central Nervous System Agents Sig/Godfrey Start time Last Medication Dose Route Stop Time Status Admin Phenytoin Sodium 300 MG DAILY 09/17 09 AC (DILANTIN 100MG PO 11/16 0901 KAPSEAL) Lorazepam 2 MG Q5M PRN PRN 09/16 1230 AC 09/16 (ATIVAN 2MG/ML VIAL) IV 09/26 1231 1530 Fosphenytoin Sodium 1,000 MG ONCE ONE 09/16 1030 DC 09/16 (FOSPHENYTOIN SODIUM IV 09/16 1059 1131 500 MG/ 10 ML) Sodium Chloride 100 ML (NORMAL SALINE 100ML IV BAG) Levetiracetam 1,500 MG Q12HR 09/15 09 AC 09/15 (KEPPRA) PO 11/14 0901 2047 Lorazepam 2 MG Q5M PRN PRN 09/15 0245 DC 09/16 (ATIVAN 2MG/ML VIAL) IV 1210 Vitamins Sig/Godfrey Start time Last Medication Dose Route Stop Time Status Admin Folic Acid 2 MG BID 09/15 09 AC 09/15 (FOLVITE) PO 11/14 0901 1707 Allergies:Coded Allergies:No Known Allergies (05/08/17) Occupation:unemployed Review of SystemsUnable to obtain due to:patient's somnolence Objective Physical ExamVS:Last Documented: Result Date Time Pulse Ox 99 09/16 1421 B/P 116/65 09/16 1421 B/P Mean 82.3 09/16 1421 Temp 98.1 09/16 1421 Pulse 125 09/16 1421 Resp 18 09/16 1421 O2 Delivery Room air 09/16 0339 Medications:Current Home MedicationslevETIRAcetam (KEPPRA) 1,500 MG PO BID FOLIC ACID 2 MG PO BID Active Meds + DC'd Last 24 HrsPhenytoin Sodium 300 MG DAILY PO Lorazepam 2 MG Q5M PRN PRN IV Fosphenytoin Sodium 1,000 MG ONCE ONE IV (DC) Sodium Chloride 100 MLFerrous Sulfate 325 MG BID PO Folic Acid 2 MG BID PO Levetiracetam 1,500 MG Q12HR PO Lorazepam 2 MG Q5M PRN PRN IV (DC) General appearance: sleeping comfortably, no acute distressHead/Eyes: atraumatic, clear corneaNeck: supple/no meningismusCardiovascular: tachycardic Respiratory: aerating well, clear to auscultation, no distressAbdomen: non-tender, normal bowel sounds, softExtremities: moves all, no edemaNeuro/PRACTICE SPECIALIST: altered mental status (somnolence), difficult to assess orientation or motor function due to patient not able to cooperate with exam Skin: dry ResultsFindings/Data:Laboratory Tests 09/16 1220 Chemistry Sodium (133 - 145 MMOL/L) 136 Potassium (3.6 - 5.2 MMOL/L) 3.5 L Chloride (100 - 108 MMOL/L) 103 Carbon Dioxide (22 - 32 MMOL/L) 26 BUN (6 - 20 MG/DL) 8 Creatinine (0.60 - 1.00 MG/DL) 0.60 Estimated GFR (MDRD) (71 - 165) 119 Glucose (65 - 99 MG/DL) 115 H Calcium (8.7 - 10.5 MG/DL) 8.6 L Creatine Kinase (26 - 192 Units/L) 32 Laboratory Tests 09/16 1220 Hematology WBC (4.80 - 10.80 x10 3/uL) 8.89 RBC (4.2 - 5.4 x10 6/uL) 4.54 Hgb (12.0 - 16.0 G/DL) 11.2 L Hct (37 - 47 %) 35.0 L MCV (81 - 99 FL) 77.1 L MCH (27 - 31 PG) 24.7 L MCHC (33 - 37 G/DL) 32.0 L RDW Coeff of Jean (11.5 - 14.5 %) 14.6 H Plt Count (150 - 450 x10 3/uL) 288 MPV (7.4 - 10.4 FL) 9.5 Neut % (Auto) (42 - 86 %) 61.7 Lymph % (Auto) (24 - 44 %) 27.1 [place] % (Auto) (0.0 - 4.0 %) 9.2 H Eos % (Auto) (0.0 - 2.7 %) 1.1 Baso % (Auto) (0.0 - 0.5 %) 0.7 H Eos # (Auto) (0.0 - 0.5 x10 3/uL) 0.10 Baso # (Auto) (0.0 - 0.2 x10 3/uL) 0.06 Abs Immat Gran (auto) (0.00 - 0.03 x10 3/uL) 0.02 Absolute Neuts (auto) (1.8 - 7.7 x10 3/uL) 5.48 Absolute Lymphs (auto) (1.0 - 4.8 x10 3/uL) 2.41 Absolute Monos (auto) (0.0 - 0.8 x10 3/uL) 0.82 H Absolute Nucleated RBC (0.0 - 0.2 X10 3/uL) 0.0 Immature Gran % (0.0 - 2.0 %) 0.2 Nucleated RBC % (0.0 - 0.0 %) 0.0 Results: labs reviewed Diagnosis, Assessment PlanFree Text DxA P Notes:ASSESSMENT-Seizures vs pseudoseizure given her clinical presentation (eyes closed, long lasting without elevation in CK, increasing frequency while inpatient) PLAN-Keep on current Keppra dose-F/U on keppra levels-Will order MRI brain w/ and w/o contrast-Ativan to be given only if seizures last longer than 3 minutes Thank you for the opportunity to participate in the care of this patient, will continue to follow along. at 1548 RPT #:[id number] OF R[id number]:18:0 0D.[id number] for patient krdwLVXVPPJKEDZWBW4574-87-79G09:49:01 2018-09-16 15:18:00 [id number]:18:00 [facility] ([facility])Neurology Consultation NoteREPORT#:[id number] REPORT STATUS: SignedDATE:09/16/18 TIME: 1517 PATIENT: HEATHER HOPE UNIT #: [id number]#: [id number] ROOM/BED: [id number]: 89 AGE: 27 SEX: F ATTEND: Fanny Knowles DOADM AUTHOR: Sandee Koenig DO R3 * ALL edits or amendments must be made on the electronic/computer document * Sandee Koenig 09/16/18 1518:History of Present Illness HPIRequesting clinician: Dr. Valdez for consult:Frequent seizuresChief complaint:seizuresHPI:Patient is a 27 y/o female with a PMH of seizures presents with frequent seizures. At our evaluation, patient is very somnolent due to having received ativan so most of the history is obtained from chart review and pscqio-sh-ogs atbedside. She was diagnosed with seizures at age 16 and is currently on Keppra. She is has been compliant but is having more frequent seizures since childbirth 8 months ago. Patient follows with neurologist (Dr. German) in [facility] living in that area. Her seizure symptoms include closing eyes, 'body tensing', and lasts about 4-6 minutes. Patient reportedly had more tonic/clonic movements when she was first diagnosed. She is usually able to tell prior to onset and does not have any known triggers. No postictal state, loss of bowel/bladder control. Prior to hospitalization, patient was having about 3 seizures per week. Patient has had several episodes of seizures during this hospitalization, including 2 episodes already today. Serum keppra levels pendingat this time. History - Adult longitudinalPast medical history:Reports: Seizure disorder. Alcohol use: Denies EtOH useDrug use: Denies recreational drugsSmoking status for patients 13 years old or older: Never SmokerMedications:Home Medications: Medication Dose/Rte/Freq Days Qty Entered Last Max Daily Dose Reviewed levETIRAcetam (KEPPRA) 1,500 MG PO BID 10/17/17 09/15/18 Strength: 750 MG TAB 2044 242 FOLIC ACID 2 MG PO BID 10/17/17 09/15/18 Strength: 1 MG TAB 2045 0243 Current Hospital Medications:Blood Formation,Coagulation Sig/Godfrey Start time Last Medication Dose Route Stop Time Status Admin Ferrous Sulfate 325 MG BID 09/15 899 AC 09/15 (FERROUS SULFATE) PO 11/14 0901 1708 Central Nervous System Agents Sig/Godfrey Start time Last Medication Dose Route Stop Time Status Admin Phenytoin Sodium 300 MG DAILY 09/17 0900 AC (DILANTIN 100MG PO 11/16 0901 KAPSEAL) Lorazepam 2 MG Q5M PRN PRN 09/16 1230 AC 09/16 (ATIVAN 2MG/ML VIAL) IV 09/26 1231 1530 Fosphenytoin Sodium 1,000 MG ONCE ONE 09/16 1030 DC 09/16 (FOSPHENYTOIN SODIUM IV 09/16 1059 1131 500 MG/ 10 ML) Sodium Chloride 100 ML (NORMAL SALINE 100ML IV BAG) Levetiracetam 1,500 MG Q12HR 09/15 09 AC 09/15 (KEPPRA) PO 11/14 0901 2047 Lorazepam 2 MG Q5M PRN PRN 09/15 0245 DC 09/16 (ATIVAN 2MG/ML VIAL) IV 1210 Vitamins Sig/Godfrey Start time Last Medication Dose Route Stop Time Status Admin Folic Acid 2 MG BID 09/15 09 AC 09/15 (FOLVITE) PO 11/14 0901 1707 Allergies:Coded Allergies:No Known Allergies (05/08/17) Occupation:unemployed Review of SystemsUnable to obtain due to:patient's somnolence Objective Physical ExamVS:Last Documented: Result Date Time Pulse Ox 99 09/16 1421 B/P 116/65 09/16 1421 B/P Mean 82.3 09/16 1421 Temp 98.1 09/16 1421 Pulse 125 09/16 1421 Resp 18 09/16 1421 O2 Delivery Room air 09/16 0339 Medications:Current Home MedicationslevETIRAcetam (KEPPRA) 1,500 MG PO BID FOLIC ACID 2 MG PO BID Active Meds + DC'd Last 24 HrsPhenytoin Sodium 300 MG DAILY PO Lorazepam 2 MG Q5M PRN PRN IV Fosphenytoin Sodium 1,000 MG ONCE ONE IV (DC) Sodium Chloride 100 MLFerrous Sulfate 325 MG BID PO Folic Acid 2 MG BID PO Levetiracetam 1,500 MG Q12HR PO Lorazepam 2 MG Q5M PRN PRN IV (DC) General appearance: sleeping comfortably, no acute distressHead/Eyes: atraumatic, clear corneaNeck: supple/no meningismusCardiovascular: tachycardic Respiratory: aerating well, clear to auscultation, no distressAbdomen: non-tender, normal bowel sounds, softExtremities: moves all, no edemaNeuro/PRACTICE SPECIALIST: altered mental status (somnolence), difficult to assess orientation or motor function due to patient not able to cooperate with exam Skin: dry ResultsFindings/Data:Laboratory Tests 09/16 1220 Chemistry Sodium (133 - 145 MMOL/L) 136 Potassium (3.6 - 5.2 MMOL/L) 3.5 L Chloride (100 - 108 MMOL/L) 103 Carbon Dioxide (22 - 32 MMOL/L) 26 BUN (6 - 20 MG/DL) 8 Creatinine (0.60 - 1.00 MG/DL) 0.60 Estimated GFR (MDRD) (71 - 165) 119 Glucose (65 - 99 MG/DL) 115 H Calcium (8.7 - 10.5 MG/DL) 8.6 L Creatine Kinase (26 - 192 Units/L) 32 Laboratory Tests 09/16 1220 Hematology WBC (4.80 - 10.80 x10 3/uL) 8.89 RBC (4.2 - 5.4 x10 6/uL) 4.54 Hgb (12.0 - 16.0 G/DL) 11.2 L Hct (37 - 47 %) 35.0 L MCV (81 - 99 FL) 77.1 L MCH (27 - 31 PG) 24.7 L MCHC (33 - 37 G/DL) 32.0 L RDW Coeff of Jean (11.5 - 14.5 %) 14.6 H Plt Count (150 - 450 x10 3/uL) 288 MPV (7.4 - 10.4 FL) 9.5 Neut % (Auto) (42 - 86 %) 61.7 Lymph % (Auto) (24 - 44 %) 27.1 [place] % (Auto) (0.0 - 4.0 %) 9.2 H Eos % (Auto) (0.0 - 2.7 %) 1.1 Baso % (Auto) (0.0 - 0.5 %) 0.7 H Eos # (Auto) (0.0 - 0.5 x10 3/uL) 0.10 Baso # (Auto) (0.0 - 0.2 x10 3/uL) 0.06 Abs Immat Gran (auto) (0.00 - 0.03 x10 3/uL) 0.02 Absolute Neuts (auto) (1.8 - 7.7 x10 3/uL) 5.48 Absolute Lymphs (auto) (1.0 - 4.8 x10 3/uL) 2.41 Absolute Monos (auto) (0.0 - 0.8 x10 3/uL) 0.82 H Absolute Nucleated RBC (0.0 - 0.2 X10 3/uL) 0.0 Immature Gran % (0.0 - 2.0 %) 0.2 Nucleated RBC % (0.0 - 0.0 %) 0.0 Results: labs reviewed Diagnosis, Assessment PlanFree Text DxA P Notes:ASSESSMENT-Seizures vs pseudoseizure given her clinical presentation (eyes closed, long lasting without elevation in CK, increasing frequency while inpatient) PLAN-Keep on current Keppra dose-F/U on keppra levels-Will order MRI brain w/ and w/o contrast-Ativan to be given only if seizures last longer than 3 minutes Thank you for the opportunity to participate in the care of this patient, will continue to follow along. Jacob Gutierrez 09/16/18 1726:Attestations Teaching Physician Omemsescqeb4iw visit w/ resident:I was present with the resident during the history and exam. I discussed the case with the resident, nursing and mother in law. Will proceed with EEG, frequent neuro-checks, cover breakthrough seizures with benzodiazepine, MRI brain and search for precipitating causes. at 1548 RPT #:[id number] OF R[id number]:18:0 0D.[id number] for patient rgdbWZTZIVMGGNEMOR0825-72-88Y24:28:56 2018-09-16 15:18:00 [id number]:18:00 [facility] ([facility])Neurology Consultation NoteREPORT#:[id number] REPORT STATUS: SignedDATE:09/16/18 TIME: 1517 PATIENT: HEATHER HOPE UNIT #: [id number]#: [id number] [address] AGE: 27 SEX: F ATTEND: Fanny Knowles DOADM AUTHOR: Sandee Koenig DO R3 * ALL edits or amendments must be made on the electronic/computer document * Sandee Koenig 09/16/18 1518:History of Present Illness HPIRequesting clinician: Dr. Valdez for consult:Frequent seizuresChief complaint:seizuresHPI:Patient is a 27 y/o female with a PMH of seizures presents with frequent seizures. At our evaluation, patient is very somnolent due to having received ativan so most of the history is obtained from chart review and nqtjfy-ah-noo atbedside. She was diagnosed with seizures at age 16 and is currently on Keppra. She is has been compliant but is having more frequent seizures since childbirth 8 months ago. Patient follows with neurologist (Dr. German) in [facility] living in that area. Her seizure symptoms include closing eyes, 'body tensing', and lasts about 4-6 minutes. Patient reportedly had more tonic/clonic movements when she was first diagnosed. She is usually able to tell prior to onset and does not have any known triggers. No postictal state, loss of bowel/bladder control. Prior to hospitalization, patient was having about 3 seizures per week. Patient has had several episodes of seizures during this hospitalization, including 2 episodes already today. Serum keppra levels pendingat this time. History - Adult longitudinalPast medical history:Reports: Seizure disorder. Alcohol use: Denies EtOH useDrug use: Denies recreational drugsSmoking status for patients 13 years old or older: Never SmokerMedications:Home Medications: Medication Dose/Rte/Freq Days Qty Entered Last Max Daily Dose Reviewed levETIRAcetam (KEPPRA) 1,500 MG PO BID 10/17/17 09/15/18 Strength: 750 MG TAB 2044 242 FOLIC ACID 2 MG PO BID 10/17/17 09/15/18 Strength: 1 MG TAB 2044 242 Current Hospital Medications:Blood Formation,Coagulation Sig/Godfrey Start time Last Medication Dose Route Stop Time Status Admin Ferrous Sulfate 325 MG BID 09/15 09 AC 09/15 (FERROUS SULFATE) PO 11/14 0901 1708 Central Nervous System Agents Sig/Godfrey Start time Last Medication Dose Route Stop Time Status Admin Phenytoin Sodium 300 MG DAILY 09/17 0900 AC (DILANTIN 100MG PO 11/16 0901 KAPSEAL) Lorazepam 2 MG Q5M PRN PRN 09/16 1230 AC 09/16 (ATIVAN 2MG/ML VIAL) IV 09/26 1231 1530 Fosphenytoin Sodium 1,000 MG ONCE ONE 09/16 1030 DC 09/16 (FOSPHENYTOIN SODIUM IV 09/16 1059 1131 500 MG/ 10 ML) Sodium Chloride 100 ML (NORMAL SALINE 100ML IV BAG) Levetiracetam 1,500 MG Q12HR 09/15 09 AC 09/15 (KEPPRA) PO 11/14 0901 2047 Lorazepam 2 MG Q5M PRN PRN 09/15 0245 DC 09/16 (ATIVAN 2MG/ML VIAL) IV 1210 Vitamins Sig/Godfrey Start time Last Medication Dose Route Stop Time Status Admin Folic Acid 2 MG BID 09/15 09 AC 09/15 (FOLVITE) PO 11/14 0901 1707 Allergies:Coded Allergies:No Known Allergies (05/08/17) Occupation:unemployed Review of SystemsUnable to obtain due to:patient's somnolence Objective Physical ExamVS:Last Documented: Result Date Time Pulse Ox 99 09/16 1421 B/P 116/65 09/16 1421 B/P Mean 82.3 09/16 1421 Temp 98.1 09/16 1421 Pulse 125 09/16 1421 Resp 18 09/16 1421 O2 Delivery Room air 09/16 0339 Medications:Current Home MedicationslevETIRAcetam (KEPPRA) 1,500 MG PO BID FOLIC ACID 2 MG PO BID Active Meds + DC'd Last 24 HrsPhenytoin Sodium 300 MG DAILY PO Lorazepam 2 MG Q5M PRN PRN IV Fosphenytoin Sodium 1,000 MG ONCE ONE IV (DC) Sodium Chloride 100 MLFerrous Sulfate 325 MG BID PO Folic Acid 2 MG BID PO Levetiracetam 1,500 MG Q12HR PO Lorazepam 2 MG Q5M PRN PRN IV (DC) General appearance: sleeping comfortably, no acute distressHead/Eyes: atraumatic, clear corneaNeck: supple/no meningismusCardiovascular: tachycardic Respiratory: aerating well, clear to auscultation, no distressAbdomen: non-tender, normal bowel sounds, softExtremities: moves all, no edemaNeuro/PRACTICE SPECIALIST: altered mental status (somnolence), difficult to assess orientation or motor function due to patient not able to cooperate with exam Skin: dry ResultsFindings/Data:Laboratory Tests 09/16 1220 Chemistry Sodium (133 - 145 MMOL/L) 136 Potassium (3.6 - 5.2 MMOL/L) 3.5 L Chloride (100 - 108 MMOL/L) 103 Carbon Dioxide (22 - 32 MMOL/L) 26 BUN (6 - 20 MG/DL) 8 Creatinine (0.60 - 1.00 MG/DL) 0.60 Estimated GFR (MDRD) (71 - 165) 119 Glucose (65 - 99 MG/DL) 115 H Calcium (8.7 - 10.5 MG/DL) 8.6 L Creatine Kinase (26 - 192 Units/L) 32 Laboratory Tests 09/16 1220 Hematology WBC (4.80 - 10.80 x10 3/uL) 8.89 RBC (4.2 - 5.4 x10 6/uL) 4.54 Hgb (12.0 - 16.0 G/DL) 11.2 L Hct (37 - 47 %) 35.0 L MCV (81 - 99 FL) 77.1 L MCH (27 - 31 PG) 24.7 L MCHC (33 - 37 G/DL) 32.0 L RDW Coeff of Jean (11.5 - 14.5 %) 14.6 H Plt Count (150 - 450 x10 3/uL) 288 MPV (7.4 - 10.4 FL) 9.5 Neut % (Auto) (42 - 86 %) 61.7 Lymph % (Auto) (24 - 44 %) 27.1 [place] % (Auto) (0.0 - 4.0 %) 9.2 H Eos % (Auto) (0.0 - 2.7 %) 1.1 Baso % (Auto) (0.0 - 0.5 %) 0.7 H Eos # (Auto) (0.0 - 0.5 x10 3/uL) 0.10 Baso # (Auto) (0.0 - 0.2 x10 3/uL) 0.06 Abs Immat Gran (auto) (0.00 - 0.03 x10 3/uL) 0.02 Absolute Neuts (auto) (1.8 - 7.7 x10 3/uL) 5.48 Absolute Lymphs (auto) (1.0 - 4.8 x10 3/uL) 2.41 Absolute Monos (auto) (0.0 - 0.8 x10 3/uL) 0.82 H Absolute Nucleated RBC (0.0 - 0.2 X10 3/uL) 0.0 Immature Gran % (0.0 - 2.0 %) 0.2 Nucleated RBC % (0.0 - 0.0 %) 0.0 Results: labs reviewed Diagnosis, Assessment PlanFree Text DxA P Notes:ASSESSMENT-Seizures vs pseudoseizure given her clinical presentation (eyes closed, long lasting without elevation in CK, increasing frequency while inpatient) PLAN-Keep on current Keppra dose-F/U on keppra levels-Will order MRI brain w/ and w/o contrast-Ativan to be given only if seizures last longer than 3 minutes Thank you for the opportunity to participate in the care of this patient, will continue to follow along. Jacob Gutierrez 09/16/18 1726:Attestations Teaching Physician Djdtcocuynl3gv visit w/ resident:I was present with the resident during the history and exam. I discussed the case with the resident, nursing and mother in law. Will proceed with EEG, frequent neuro-checks, cover breakthrough seizures with benzodiazepine, MRI brain and search for precipitating causes. at 3883 at 5040 RPT #:[id number] OF R[id number]:18:0 0D.[id number] for patient rirqZZQXWQHGYCKEOT8240-28-91Z59:28:57 2018-09-16 08:59:00 [id number]:59:00 [facility] ([facility])Hospitalist Progress NoteREPORT#:[id number] REPORT STATUS: SignedDATE:09/16/18 TIME: 0859 PATIENT: HEATHER HOPE UNIT #: [id number]#: [id number] [facility] AGE: 27 SEX: F ATTEND: Fanny Knowles DOADM AUTHOR: Apolonia Mae MD * ALL edits or amendments must be made on the electronic/computer document * Subjective Free Text Subj NotesFree Subj Notes:Had multiple seizure episodes in-house the latest is 2 episodes this morning, post ictal, very somnolent no seizure activity. Spoke to patient's neurologist from [place] patient was prescribed oxtellar last June however patient lost to follow-up. Upon speaking to patient's rzbcxs-bp-cnq patient did noted hallucinations while on Oxtellar. Vital signs remained stable during seizure episodes. Review of SystemsConstitutional:Denies: chills, fatigue, fever, generalized weakness. Respiratory:Denies: PICHARDO (dyspnea on exertion), SOB, wheezing. Objective GeneralVS/I O:Vital Signs: Date Time Temp Pulse Resp B/P B/P Pulse O2 O2 Flow FiO2 Mean Ox Delivery Rate 09/16 1609 98.4 124 17 125/82 96.0 98 09/16 1421 98.1 125 18 116/65 82.3 99 09/16 1217 99.0 121 16 115/71 85.2 95 09/16 0740 97.9 117 18 130/87 101.1 98 09/16 0339 97.7 98 18 118/74 88.9 97 Room air 09/15 2359 97.7 84 18 130/87 101.4 96 Room air 09/15 2037 111 20 102/74 83.3 99 24 hour I O ending at 0700: 09/16 0700 09/15 1900 Intake Total 1000 Output Total Balance 1000 Intake, Oral 1000 Number Voids 2 Physical ExamGeneral appearance: lethargic/somnolent post seizureCardiovascular: normal heart sounds, regular rate rhythmRespiratory: aerating well, clear to auscultation, symmetric expansionAbdomen: non-tender, normal bowel sounds, softNeuro/PRACTICE SPECIALIST: somnolent post-ictal Diagnosis, Assessment Plan Free Text DxA P NotesFree text DxA P notes:complex partial seizureseizure precaution-IV keppra , - recheck level of keppra - CT ahead/ negative, electrolytes WNL-spoke to Dr. Regalado, recommended dilantin po-had another seizure episode this morning, recommends MRI of the brain, EEG,, consulted Dr. Gutierrez. As needed for seizures. Received one-time dose of fosphenytoin. Continue Keppra, hold off on adding seizure meds-CK levels unremarkable post seizures iron deficiency anemia-as noted on iron studies-ferrous sulfate BID Regular diet when fully awake full codeSCD, lovenox at 1812 RPT #:[id number] OF REPORTPRProgress [id number]:59:00D.[id number] 9AVAvailable for patient vaamRHRFBLKCHNTMCQ4184-31-50Z77:12:56 2018-09-15 10:01:00 [id number]:01:00 [facility] ([facility])Clinical NoteREPORT#:[id number] REPORT STATUS: SignedDATE:09/15/18 TIME: 1001 PATIENT: HEATHER HOPE UNIT #: [id number]#: [id number] [facility] AGE: 27 SEX: F ATTEND: Fanny Knowles AUTHOR: Apolonia Mae MD * ALL edits or amendments must be made on the electronic/computer document * Clinical NoteNote:Seen and examined patient. Chart reviewed.Bffstf-do-mew at bedside, states that patient is from [facility] was here for medication with family. Patient had one episode of seizure about 2 weeks ago she was short and required last night. States patient has been compliant with her medications. No recurrence of seizures since episode in ED physical exam:Patient lethargic however easily arousablec/l: clear breath sound, cvs: regular rate and rhythmneuro; lethargic but easily arousable A/PComplex partial seizures.- admitted for observation on 3e- bed alarm-IV keppra , contiue oral keppra - recheck level of keppra - CT ahead/ negative, electrolytes WNL-attempted to call pt's Neurologist Dr. Regalado, no answer iron deficiency anemia-as noted on iron studies-ferrous sulfate BID dispo: monitor, if no seizure episode douglas, consider DC, will need to contact neuro or follow-up the soonest possible at 1803 RPT #:[id number] OF REPORTCLClinical [id number]:01:00D.[id number] 6AVAvailable for patient [id number]:03:55 2018-09-15 02:39:00 [id number]:39:00 [facility] ([facility])Hospitalist History PhysicalREPORT#:[id number] REPORT STATUS: SignedDATE:09/15/18 TIME: 0239 PATIENT: HEATHER HOPE UNIT #: [id number]#: [id number] [address] AGE: 27 SEX: F ATTEND: Fanny Knowles DOADM AUTHOR: Fanny Knowles DO * ALL edits or amendments must be made on the electronic/computer document * History of Present Illness HPIChief complaint:SeizurePCP:PCP: DOES_NOT KNOW HPI:The patient is a 27 year old female with PMHx of unspecified seizure presented to [facility] with chief complaint of escalating seizures of note at the time of interview, the patient was the veronica historian and there was no other family members around. Therefore i was not provided the decriptionof seizure 4 days ago she experienced more seizures 3-5 episodes of seizures a day. In theER she had one seizure episode last 5 mins and postictal for 10 mins; this was reported to me by ER doctor. The ER wanted to admit to watch her for potential grandmal seizure. She was dx and treated for seizures for 13 years agoShe was taking keppra for 2 years after her . She was doing well with Keppra with no significant sign effects. In past 4 days she vomitted Keppra only one time. She states she compliant of taking it. She experienced mild stress in her life but could not tell me more about it. PMHx: only seizures Psurg hx: none Social hx : no tobacco, no ETOH use. no substance report. Informant/historian: patient HistoryPast medical history:Reports: Seizure disorder. Smoking status for patients 13 years old or older: Never Smoker Medication/Allergy-Vaccine HxAllergies:Coded Allergies:No Known Allergies (05/08/17) Review of SystemsConstitutional:Denies: chills, fatigue, fever, generalized weakness. Skin:Denies: rash, swelling. ENT:Denies: nasal congestion, sore throat. Respiratory:Denies: PICHARDO (dyspnea on exertion), SOB, wheezing. Cardiovascular:Denies: chest pain, palpitations. GI:Reports: vomiting. Denies: abdominal pain, nausea. :Denies: dysuria, flank pain. Musculoskeletal:Denies: extremity pain, extremity swelling. Neuro:Denies: confusion, dizziness. Objective GeneralVS/I O:Vital Signs: Date Time Temp Pulse Resp B/P B/P Pulse O2 O2 Flow FiO2 Mean Ox Delivery Rate 09/15 0446 97.7 75 15 134/84 100.7 99 Room air 09/14 2347 98.2 85 14 135/88 103.4 98 Room air 09/14 2116 99 09/14 2115 94 18 128/63 84 98 09/14 2100 98.3 86 18 144/73 96 98 09/14 1902 98.2 86 18 151/83 105 98 Room air 24 hour I O ending at 0700: 09/15 0700 09/14 1900 Intake Total Output Total Balance Patient 69.6 kg Weight Weight Chair scale Measurement Method Medications:Active Meds + DC'd Last 24 HrsPhenytoin Sodium 300 MG DAILY PO Fosphenytoin Sodium 1,000 MG ONCE ONE IV (DC) Sodium Chloride 100 MLFerrous Sulfate 325 MG BID PO Folic Acid 2 MG BID PO Levetiracetam 1,500 MG Q12HR PO Lorazepam 2 MG Q5M PRN PRN IV (DC) Physical ExamGeneral appearance: alert, awake, orientedHead/Eyes: atraumatic, clear cornea, EOMIENT: moist mucosal membranes, normal nose, normal pharynxNeck: full range of motion, non-tender, normal thyroidCardiovascular: normal capillary refill, no murmurRespiratory: aerating well, clear to auscultation, symmetric expansionAbdomen: non-tender, normal bowel sounds, softExtremities: moves all, no edemaNeuro/PRACTICE SPECIALIST: alert, oriented X 3Skin: dry, intact, normal temperature Diagnosis, Assessment Plan Free Text DxA P NotesFree Text DxA P Notes:Complex partial seizures.- admitted for observation on 3e- bed alarm-IV keppra , contiue oral keppra - recheck level of keppra - CT ahead/ negative, electrolytes WNL- check iron study. Full code at 1213 RPT #:[id number] OF REPORTHPHistory and physical [id number]:39:00D.[id number] for patient [id number]:13:41 2018-09-14 19:14:00 [id number]:14:00 [facility] PROVID[facility] REPORTREPORT#:[id number] REPORT STATUS: SignedDATE:09/14/18 TIME: 1913 PATIENT: HEATHER HOPE UNIT #: [id number]#: [id number] ROOM/BED:AGE: 27 SEX: F PCP PHYS: DOES_NOT KNOWSERVICE AUTHOR: Cristiane HeathP-C * ALL edits or amendments must be made on the electronic/computer document * Cristiane Heath 09/14/181913:HPI-Seizure GeneralConfirmed Patient YesPatient Type New patientInitial Greet Date/Time 09/14/181907 PresentationChief Complaint Seizure, focal Free Text HPI NotesFree Text HPI Notespatient is unresponsive. mother in law is at bedside indicates patient has seizure disorder and takes Keppra. reports that starting one week ago patient having increased seizure frequecy and when alert states that she does not feel well. family member no aware of any associated symptoms such as fever or recent injury Risk-Seizure Risk StratificationNIH Stroke Scale NIH Stroke Scale Response Value NIHSS Applicable? No 0 Total 0 Review of Systems ROS StatementsAll systems rev neg except as marked.Unable to Obtain ROS Patient condition Free Text ROS NotesFree Text ROS Notesafter patient woke she denies recent fever, sore throat, ear pain, cough, abdominal or chest pain, nausea or vomiting. Past Medical History - AdultStated Complaint SEIZUREAllergiesCoded Allergies:No Known Allergies (05/08/17) Home MedicationsReported MedicationslevETIRAcetam (KEPPRA) 1,500 MG PO BID FOLIC ACID 2 MG PO BID Review of Nursing Notes Rev avail, and agreePast Medical History:Reports: Seizure disorder. Smoking status for patients 13 years old or older: Never Smoker Physical Exam Vital SignsVital Signs Review of Vital Signs Reviewed Basic Physical ExamBasic PE HEAD: Atraumatic/NC, ENT: Membranes moist, EXT: No gross abnormality, SKIN: No rashes, warm/dry Focused PEGeneral/Const Text/Dict Notespatient appears to be having seizure activity with eyelid fluttering and upward,rightward eye deviation. initially had stiffness of all limbs with HR>100. patient appeared to relax and HR dropped into 80s. eye deviation continued.MS Head Head Atraumatic, NormocephalicMS Neck Neck SuppleResp/Chest Respiratory/Chest Breath sounds NL, Breath sounds = bilat, No respiratory distressCardiovascular Cardiovascular Regular rhythm, Heart sounds NL, Cap refill not delayed, Peripheral circulation NL Interpretation Diagnostics Lab Results InterpretationResultsLaboratory Tests 09/14/181935:[Embedded Image Not Available]Laboratory Tests: 09/14 Chemistry Sodium (133 - 145 MMOL/L) 139 Potassium (3.6 - 5.2 MMOL/L) 3.9 Chloride (100 - 108 MMOL/L) 101 Carbon Dioxide (22 - 32 MMOL/L) 30 BUN (6 - 20 MG/DL) 9 Creatinine (0.60 - 1.00 MG/DL) 0.72 Estimated GFR (MDRD) (71 - 165) 96 Glucose (65 - 99 MG/DL) 95 Calcium (8.7 - 10.5 MG/DL) 9.3 HCG, Qual (NEGATIVE) NEGATIVE Hematology WBC (4.80 - 10.80 x10 3/uL) 10.04 RBC (4.2 - 5.4 x10 6/uL) 4.90 Hgb (12.0 - 16.0 G/DL) 10.9 L Hct (37 - 47 %) 37.4 MCV (81 - 99 FL) 76.3 L MCH (27 - 31 PG) 22.2 L MCHC (33 - 37 G/DL) 29.1 L RDW Coeff of Jean (11.5 - 14.5 %) 15.0 H Plt Count (150 - 450 x10 3/uL) 371 MPV (7.4 - 10.4 FL) 9.8 Neut % (Auto) (42 - 86 %) 65.2 Lymph % (Auto) (24 - 44 %) 22.2 L [place] % (Auto) (0.0 - 4.0 %) 10.5 H Eos % (Auto) (0.0 - 2.7 %) 1.6 Baso % (Auto) (0.0 - 0.5 %) 0.5 Eos # (Auto) (0.0 - 0.5 x10 3/uL) 0.16 Baso # (Auto) (0.0 - 0.2 x10 3/uL) 0.05 Absolute Neuts (auto) (1.8 - 7.7 x10 3/uL) 6.55 Absolute Lymphs (auto) (1.0 - 4.8 x10 3/uL) 2.23 Absolute Monos (auto) (0.0 - 0.8 x10 3/uL) 1.05 H Recent Impressions:RADIOLOGY - XR CHEST 1 V 09/14 2004 Report Impression - Status: SIGNED Entered: 09/14/20182020 IMPRESSION: No acute cardiopulmonary findingsImpression By: Tristan - AUSTIN Villavicencio SCAN - CT HEAD/BRAIN W/O CONT 04/02 2005 Report Impression - Status: SIGNED Entered: 09/14/20182021 IMPRESSION: NegativeImpression By: Tristan - Lashell Jimenez MD Lab Imaging StatementLaboratory radiographic studies reviewed and considered in the medical decision-making. Re-Evaluation MDM Free Text MDM NotesFree Text MDM [id number] F with known seizure disorder seen for evaluation of increased seizure frequency. CT brain and CXR did not show acute abnormalities. Labs are reassuring. Patient to be transferred to [facility] for further evaluationand management. ED CourseMedication(s) Ordered Patient Discharge Departure Vital Signs/ConditionVital SignsFirst Documented: Result Date Time Pulse Ox 98 04/ 1902 B/P 151/83 04/ 1902 B/P Mean 105 04/ 1902 O2 Delivery Room air 04 1902 Temp 36.8 04/ 1902 Pulse 86 04/ 1902 Resp 18 09/14 190 Last Documented: Result Date Time Pulse Ox 98 04/ 1902 B/P 151/83 04/ 1902 B/P Mean 105 04/ 1902 O2 Delivery Room air 04/ 1902 Temp 36.8 04/ 1902 Pulse 86 04/ 1902 Resp 18 09/14 190 All vital signs available at the time of this entry have been reviewed. Authenticated by Cristiane Heath on 09/14/18 at 205 Portions of this section were scribed by Kari Mark on 09/14/18 at 2050 Keanu Vázquez 09/14/181920:Physical Exam Vital SignsVital SignsFirst Documented: Result Date Time Pulse Ox 98 04/ 1902 B/P 151/83 04/02 1902 B/P Mean 105 04/ 1902 O2 Delivery Room air / 1902 Temp 98.2 04/ 1902 Pulse 86 04/ 1902 Resp 18 09/14 190 Last Documented: Result Date Time Pulse Ox 98 04/ 1902 B/P 151/83 04/ 1902 B/P Mean 105 04/ 1902 O2 Delivery Room air 09/14 1902 Temp 98.2 04/ 1902 Pulse 86 04/ 1902 Resp 18 04/02 1902 Portions of this section were scribed by Kari Mark on 09/14/18 at 192 Interpretation Diagnostics Lab Results InterpretationResults Portions of this section were scribed by Kari Mark on 09/14/18 at 2034 Re-Evaluation MDM Free Text MDM NotesAdditional [id number]: 27F presents c/o increasing seizure activity. Lfjwzs-xl-bjm reports pt follows w/ a Dr. German for seizures. MIL reports when pt has a seizure it is more posturing w/ extension of extremities. Admits to not noticing if pt's eyes normally twitch during a seizure. [place] reports pt had a mild seizure on Thursday (09/06/18) but then (09/09/18) since today she has had increased seizure activity. Discussed pt's case w/ CUTTING MACHINE OFFBEARER Kumar and further POC. PE: right eye deviation w/ eyes closed, no increased tone to upper and lower limbs, not following two step commands, responsive to pain stimuli, lungs CTA, abd soft/non-tender/no distention, heart RRR. Re-Evaluation/Progress #1Text/Dict NotePt is awake, alert, and responsive w/ no focal deficit. Pt reports she typicallyhas two seizures per day but since has had approx 4 a day. Time of Re-Eval 1957 ED CourseMedication(s) OrderedMedication(s) Ordered:Central Nervous System Agents Sig/Godfrey Start time Last Medication Dose Route Stop Time Status Admin Levetiracetam 100 ML X1ED STA 09/14 2009 CKDr 09/14 IV 09/14 Lorazepam 1 MG X1ED STA 09/14 1929 DC 09/14 IM 09/14 Lorazepam 2 MG X1ED STA 09/14 1913 CAN IM 09/14 1914 Electrolytic, Caloric, And Caren Sig/Godfrey Start time Last Medication Dose Route Stop Time Status Admin Sodium Chloride 1,000 ML X1ED STA 09/14 1913 DC 09/14 IV 09/14 ConsultationConsultation Referral/Consult Name Bello Campos MD [employer] Consultant Called Neurology Requested Call Time 2034 Requested Call Date 09/14/18 Call Returned Call returned Call Returned Time 2036 Call Returned Date 09/14/18 [employer] Consultant Did not wish to discuss pt case at this time. States he will discuss pt case once pt is located at either [facility] or [facility]. Free Text MDM NotesFree Text MDM Notes27 year old female with past medical history of seizures who presents to the ED with a chief complaint of increased seizure frequency with at least 4 breakthrough seizures per day for the past 4-5 days per patient. Patient with what appears to be focal seizure on arrival to the ED with R gaze deviation and AMS and no generalized or other focal seizure activity. Patient administered ativan 1 mg IV and keppra 1 g IV. Patient's labs and imaging reviewed. Attemped to consult with Dr. Cotto with [facility], however, he states he will not consult with ED as it is not within his contract. Case discussed with [facility] hospitalist Dr. Knowles who has accepted the patient to [facility] for further management and observation. Risks and benefits of transfer discussed andthey are ameanble to the plan and all questions answered. Portions of this section were scribed by Kari Mark on 09/14/18 at 2034 Patient Discharge Departure Vital Signs/ConditionVital Signs Clinical ImpressionClinical ImpressionPrimary Impression: SeizuresTime of Impression 2049 Disposition DecisionAdmit Admit Physician Name KnowlesFanny pisano Admit Physician Hospitalist Request Time 2040 Request Date 09/14/18 )( Admission Accepts Yes )( Accepted Time 2044 )( Accepted Date 09/14/18 Call Information will see patient, agrees with eval, agrees with plan Discharge/Care PlanCounseled Regarding Diagnosis, Lab results, Imaging studies, Need for admission Admit NoteI have spoken with the patient and/or caregivers. I have explained the patient'scondition, diagnoses and treatment plan based on the information available to meat this time. I have answered the patient's and/or caregiver's questions and addressed any concerns. The patient and/or caregivers have as good an understanding of the patient's diagnosis, condition and treatment plan as can beexpected at this point. The patient has been [facility]. The patient will be transported for further care and management or will be moved to an observation or inpatient service. I have communicated with the staff or medical practitioner taking over this patient's care. Supervising Physician Note MidLv/Doc Saw Pt 2I have personally interviewed and examined the patient. All charts, labs, and imaging studies were reviewed. I agree with this PA/telephone interviewer findings, exam and plan. Scribe StatementStKari gutierrez, 09/14/181925, scribing for and in the presence of [Dr. Vázquez].Signed By: Kari Mark, 09/14/181925 Provider Scribed StatementI personally performed the services described in this documentation and reviewedthe documentation that was dictated to the scribe(s) in my presence, and it accurately records my words and actions. Keanu Vázquez, 09/14/18 Portions of this section were scribed by Kari Mark on 09/14/18 at 2049 Authenticated by Keanu Vázquez MD on 09/14/18 at 2051 at 2058RPT #:[id number] OF REPORTEDEmergency department [id number]:14:00D.[id number] 802AVAvailable for patient [id number]:59:36 2018-09-14 19:14:00 [id number]:14:00 [facility]OR [facility] PROVID[facility] REPORTREPORT#:[id number] REPORT STATUS: SignedDATE:09/14/18 TIME: 1913 PATIENT: HEATHER HOPE UNIT #: [id number]#: [id number] ROOM/BED:AGE: 27 SEX: F PCP PHYS: DOES_NOT KNOWSERVICE AUTHOR: Cristiane Heath * ALL edits or amendments must be made on the electronic/computer document * Cristiane Heath 09/14/181913:HPI-Seizure GeneralConfirmed Patient YesPatient Type New patient PresentationChief Complaint Seizure, focal Free Text HPI NotesFree Text HPI Notespatient is unresponsive. mother in law is at bedside indicates patient has seizure disorder and takes Keppra. reports that starting one week ago patient having increased seizure frequecy and when alert states that she does not feel well. family member no aware of any associated symptoms such as fever or recent injury Risk-Seizure Risk StratificationNIH Stroke Scale NIH Stroke Scale Response Value NIHSS Applicable? No 0 Total 0 Review of Systems ROS StatementsAll systems rev neg except as marked.Unable to Obtain ROS Patient condition Free Text ROS NotesFree Text ROS Notesafter patient woke she denies recent fever, sore throat, ear pain, cough, abdominal or chest pain, nausea or vomiting. Past Medical History - AdultStated Complaint SEIZUREAllergiesCoded Allergies:No Known Allergies (05/08/17) Home MedicationsReported MedicationslevETIRAcetam (KEPPRA) 1,500 MG PO BID FOLIC ACID 2 MG PO BID Review of Nursing Notes Rev avail, and agreePast Medical History:Reports: Seizure disorder. Smoking status for patients 13 years old or older: Never Smoker Physical Exam Vital SignsVital SignsFirst Documented: Result Date Time Pulse Ox 98 09/14 1901 B/P 151/83 09/14 1901 B/P Mean 105 09/14 1901 O2 Delivery Room air 09/14 1901 Temp 36.8 09/14 1901 Pulse 86 09/14 1901 Resp 18 09/14 1901 Last Documented: Result Date Time Pulse Ox 99 09/15 2115 B/P 128/63 09/14 2114 B/P Mean 84 09/14 2114 Pulse 94 09/14 2114 Resp 18 09/14 2114 Temp 36.8 09/14 2100 O2 Delivery Room air 09/14 1901 Review of Vital Signs Reviewed Basic Physical ExamBasic PE HEAD: Atraumatic/NC, ENT: Membranes moist, EXT: No gross abnormality, SKIN: No rashes, warm/dry Focused PEGeneral/Const Text/Dict Notespatient appears to be having seizure activity with eyelid fluttering and upward,rightward eye deviation. initially had stiffness of all limbs with HR>100. patient appeared to relax and HR dropped into 80s. eye deviation continued.MS Head Head Atraumatic, NormocephalicMS Neck Neck SuppleResp/Chest Respiratory/Chest Breath sounds NL, Breath sounds = bilat, No respiratory distressCardiovascular Cardiovascular Regular rhythm, Heart sounds NL, Cap refill not delayed, Peripheral circulation NL Interpretation Diagnostics Lab Results InterpretationResultsLaboratory Tests 09/14/181935:[Embedded Image Not Available]Laboratory Tests: 09/14 Chemistry Sodium (133 - 145 MMOL/L) 139 Potassium (3.6 - 5.2 MMOL/L) 3.9 Chloride (100 - 108 MMOL/L) 101 Carbon Dioxide (22 - 32 MMOL/L) 30 BUN (6 - 20 MG/DL) 9 Creatinine (0.60 - 1.00 MG/DL) 0.72 Estimated GFR (MDRD) (71 - 165) 96 Glucose (65 - 99 MG/DL) 95 Calcium (8.7 - 10.5 MG/DL) 9.3 HCG, Qual (NEGATIVE) NEGATIVE Hematology WBC (4.80 - 10.80 x10 3/uL) 10.04 RBC (4.2 - 5.4 x10 6/uL) 4.90 Hgb (12.0 - 16.0 G/DL) 10.9 L Hct (37 - 47 %) 37.4 MCV (81 - 99 FL) 76.3 L MCH (27 - 31 PG) 22.2 L MCHC (33 - 37 G/DL) 29.1 L RDW Coeff of Jean (11.5 - 14.5 %) 15.0 H Plt Count (150 - 450 x10 3/uL) 371 MPV (7.4 - 10.4 FL) 9.8 Neut % (Auto) (42 - 86 %) 65.2 Lymph % (Auto) (24 - 44 %) 22.2 L [place] % (Auto) (0.0 - 4.0 %) 10.5 H Eos % (Auto) (0.0 - 2.7 %) 1.6 Baso % (Auto) (0.0 - 0.5 %) 0.5 Eos # (Auto) (0.0 - 0.5 x10 3/uL) 0.16 Baso # (Auto) (0.0 - 0.2 x10 3/uL) 0.05 Absolute Neuts (auto) (1.8 - 7.7 x10 3/uL) 6.55 Absolute Lymphs (auto) (1.0 - 4.8 x10 3/uL) 2.23 Absolute Monos (auto) (0.0 - 0.8 x10 3/uL) 1.05 H Recent Impressions:RADIOLOGY - XR CHEST 1 V 09/14 2004 Report Impression - Status: SIGNED Entered: 09/14/20182020 IMPRESSION: No acute cardiopulmonary findingsImpression By: YOHAN MarieAT SCAN - CT HEAD/BRAIN W/O CONT 09/14 2004 Report Impression - Status: SIGNED Entered: 09/14/20182021 IMPRESSION: NegativeImpression By: Tristan Jimenez MD Lab Imaging StatementLaboratory radiographic studies reviewed and considered in the medical decision-making. Re-Evaluation MDM Free Text MDM NotesFree Text MDM [id number] F with known seizure disorder seen for evaluation of increased seizure frequency. CT brain and CXR did not show acute abnormalities. Labs are reassuring. Patient to be transferred to [facility] for further evaluationand management. ED CourseMedication(s) OrderedMedication(s) Ordered:Central Nervous System Agents Sig/Godfrey Start time Last Medication Dose Route Stop Time Status Admin Levetiracetam 100 ML X1ED STA 09/14 2009 DCr 09/14 IV 09/14 Lorazepam 1 MG X1ED STA 09/14 193 DC 09/14 IM 09/14 Lorazepam 2 MG X1ED STA 09/14 1913 CAN IM 09/14 1914 Electrolytic, Caloric, And Caren Sig/Godfrey Start time Last Medication Dose Route Stop Time Status Admin Sodium Chloride 1,000 ML X1ED STA 09/14 191 DC 09/14 IV 09/14 Patient Discharge Departure Vital Signs/ConditionVital SignsFirst Documented: Result Date Time Pulse Ox 98 09/14 1901 B/P 151/83 09/14 1901 B/P Mean 105 09/14 1901 O2 Delivery Room air 09/14 1901 Temp 36.8 09/14 1901 Pulse 86 09/14 1901 Resp 18 09/14 1901 Last Documented: Result Date Time Pulse Ox 99 09/15 2115 B/P 128/63 09/14 2114 B/P Mean 84 09/14 2114 Pulse 94 09/14 2114 Resp 18 09/14 2114 Temp 36.8 09/14 2100 O2 Delivery Room air 09/14 1901 All vital signs available at the time of this entry have been reviewed. Keanu VázquezVipin 09/14/181920:HPI-Seizure GeneralInitial Greet Date/Time 09/14/181907 Portions of this section were scribed by Kari Mark on 09/14/18 at 2050 Physical Exam Vital SignsVital Signs Portions of this section were scribed by Kari Mark on 09/14/18 at 192 Interpretation Diagnostics Lab Results InterpretationResults Portions of this section were scribed by Kari Mark on 09/14/18 at 2034 Re-Evaluation MDM Free Text MDM NotesAdditional [id number]: 27F presents c/o increasing seizure activity. Ozezgc-tt-vvj reports pt follows w/ a Dr. German for seizures. MIL reports when pt has a seizure it is more posturing w/ extension of extremities. Admits to not noticing if pt's eyes normally twitch during a seizure. [place] [employer] reports pt had a mild seizure on Thursday (09/06/18) but then (09/09/18) since today she has had increased seizure activity. Discussed pt's case w/ CUTTING MACHINE OFFBEARER Kumar and further POC. PE: right eye deviation w/ eyes closed, no increased tone to upper and lower limbs, not following two step commands, responsive to pain stimuli, lungs CTA, abd soft/non-tender/no distention, heart RRR. Re-Evaluation/Progress #1Text/Dict NotePt is awake, alert, and responsive w/ no focal deficit. Pt reports she typicallyhas two seizures per day but since has had approx 4 a day. Time of Re-Eval 1957 ED CourseMedication(s) Ordered ConsultationConsultation Referral/Consult Name Bello Campos MD [employer] Consultant Called Neurology Requested Call Time 2034 Requested Call Date 09/14/18 Call Returned Call returned Call Returned Time 2036 Call Returned Date 09/14/18 [employer] Consultant Did not wish to discuss pt case at this time. States he will discuss pt case once pt is located at either [facility] or [facility]. Free Text MDM NotesFree Text MDM Notes27 year old female with past medical history of seizures who presents to the ED with a chief complaint of increased seizure frequency with at least 4 breakthrough seizures per day for the past 4-5 days per patient. Patient with what appears to be focal seizure on arrival to the ED with R gaze deviation and AMS and no generalized or other focal seizure activity. Patient administered ativan 1 mg IV and keppra 1 g IV. Patient's labs and imaging reviewed. Attemped to consult with Dr. Cotto with [facility] Neurology, however, he states he will not consult with ED as it is not within his contract. Case discussed with [facility] hospitalist Dr. Knowles who has accepted the patient to [facility] for further management and observation. Risks and benefits of transfer discussed andthey are ameanble to the plan and all questions answered. Portions of this section were scribed by Kari Mark on 09/14/18 at 2034 Patient Discharge Departure Vital Signs/ConditionVital Signs Clinical ImpressionClinical ImpressionPrimary Impression: SeizuresTime of Impression 2049 Disposition DecisionAdmit Admit Physician Name KnowlesFanny pisano Admit Physician Hospitalist Request Time 2040 Request Date 09/14/18 )( Admission Accepts Yes )( Accepted Time 2044 )( Accepted Date 09/14/18 Call Information will see patient, agrees with eval, agrees with plan Discharge/Care PlanCounseled Regarding Diagnosis, Lab results, Imaging studies, Need for admission Admit NoteI have spoken with the patient and/or caregivers. I have explained the patient'scondition, diagnoses and treatment plan based on the information available to meat this time. I have answered the patient's and/or caregiver's questions and addressed any concerns. The patient and/or caregivers have as good an understanding of the patient's diagnosis, condition and treatment plan as can beexpected at this point. The patient has been stabilized within the [facility]. The patient will be transported for further care and management or will be moved to an observation or inpatient service. I have communicated with the staff or medical practitioner taking over this patient's care. Supervising Physician Note MidLv/Doc Saw Pt 2I have personally interviewed and examined the patient. All charts, labs, and imaging studies were reviewed. I agree with this PA/telephone interviewer findings, exam and plan. Scribe StatementStKari gutierrez, 09/14/181925, scribing for and in the presence of [Dr. Vázquez].Signed By: Kari Mark, 09/14/181925 Provider Scribed StatementI personally performed the services described in this documentation and reviewedthe documentation that was dictated to the scribe(s) in my presence, and it accurately records my words and actions. Keanu Vázquez, 09/14/18 Portions of this section were scribed by Kari Mark on 09/14/18 at 2049 Authenticated by Keanu Vázquez MD on 09/14/18 at 2051 at 2058RPT #:[id number] OF REPORTEDEmergency department [id number]:14:00D.[id number] 802AVAvailable for patient [id number]:23:01 2018-09-14 19:14:00 [id number]:14:00 [facility] PROVID[facility] REPORTREPORT#:[id number] REPORT STATUS: SignedDATE:09/14/18 TIME: 1913 PATIENT: HEATHER HOPE UNIT #: [id number]#: [id number] [address]: 27 SEX: F PCP PHYS: DOES_NOT KNOWSERVICE AUTHOR: Cristiane Heath * ALL edits or amendments must be made on the electronic/computer document * Cristiane Heath 09/14/181913:HPI-Seizure GeneralConfirmed Patient YesPatient Type New patient PresentationChief Complaint Seizure, focal Free Text HPI NotesFree Text HPI Notespatient is unresponsive. mother in law is at bedside indicates patient has seizure disorder and takes Keppra. reports that starting one week ago patient having increased seizure frequecy and when alert states that she does not feel well. family member no aware of any associated symptoms such as fever or recent injury Risk-Seizure Risk StratificationNIH Stroke Scale NIH Stroke Scale Response Value NIHSS Applicable? No 0 Total 0 Review of Systems ROS StatementsAll systems rev neg except as marked.Unable to Obtain ROS Patient condition Free Text ROS NotesFree Text ROS Notesafter patient woke she denies recent fever, sore throat, ear pain, cough, abdominal or chest pain, nausea or vomiting. Past Medical History - AdultStated Complaint SEIZUREAllergiesCoded Allergies:No Known Allergies (05/08/17) Home MedicationsReported MedicationslevETIRAcetam (KEPPRA) 1,500 MG PO BID FOLIC ACID 2 MG PO BID Review of Nursing Notes Rev avail, and agreePast Medical History:Reports: Seizure disorder. Smoking status for patients 13 years old or older: Never Smoker Physical Exam Vital SignsVital SignsFirst Documented: Result Date Time Pulse Ox 98 09/14 1901 B/P 151/83 09/14 190 B/P Mean 105 09/14 1901 O2 Delivery Room air 09/14 1901 Temp 36.8 09/14 1901 Pulse 86 09/14 1901 Resp 18 09/14 1901 Last Documented: Result Date Time Pulse Ox 99 09/15 2115 B/P 128/63 09/14 2114 B/P Mean 84 09/14 2114 Pulse 94 09/14 2114 Resp 18 09/14 2114 Temp 36.8 09/14 2100 O2 Delivery Room air 09/14 1901 Review of Vital Signs Reviewed Basic Physical ExamBasic PE HEAD: Atraumatic/NC, ENT: Membranes moist, EXT: No gross abnormality, SKIN: No rashes, warm/dry Focused PEGeneral/Const Text/Dict Notespatient appears to be having seizure activity with eyelid fluttering and upward,rightward eye deviation. initially had stiffness of all limbs with HR>100. patient appeared to relax and HR dropped into 80s. eye deviation continued.MS Head Head Atraumatic, NormocephalicMS Neck Neck SuppleResp/Chest Respiratory/Chest Breath sounds NL, Breath sounds = bilat, No respiratory distressCardiovascular Cardiovascular Regular rhythm, Heart sounds NL, Cap refill not delayed, Peripheral circulation NL Interpretation Diagnostics Lab Results InterpretationResultsLaboratory Tests 09/14/181935:[Embedded Image Not Available]Laboratory Tests: 09/14 09/14 1936 1936 Chemistry Sodium (133 - 145 MMOL/L) 139 Potassium (3.6 - 5.2 MMOL/L) 3.9 Chloride (100 - 108 MMOL/L) 101 Carbon Dioxide (22 - 32 MMOL/L) 30 BUN (6 - 20 MG/DL) 9 Creatinine (0.60 - 1.00 MG/DL) 0.72 Estimated GFR (MDRD) (71 - 165) 96 Glucose (65 - 99 MG/DL) 95 Calcium (8.7 - 10.5 MG/DL) 9.3 HCG, Qual (NEGATIVE) NEGATIVE Hematology WBC (4.80 - 10.80 x10 3/uL) 10.04 RBC (4.2 - 5.4 x10 6/uL) 4.90 Hgb (12.0 - 16.0 G/DL) 10.9 L Hct (37 - 47 %) 37.4 MCV (81 - 99 FL) 76.3 L MCH (27 - 31 PG) 22.2 L MCHC (33 - 37 G/DL) 29.1 L RDW Coeff of Jean (11.5 - 14.5 %) 15.0 H Plt Count (150 - 450 x10 3/uL) 371 MPV (7.4 - 10.4 FL) 9.8 Neut % (Auto) (42 - 86 %) 65.2 Lymph % (Auto) (24 - 44 %) 22.2 L [place] % (Auto) (0.0 - 4.0 %) 10.5 H Eos % (Auto) (0.0 - 2.7 %) 1.6 Baso % (Auto) (0.0 - 0.5 %) 0.5 Eos # (Auto) (0.0 - 0.5 x10 3/uL) 0.16 Baso # (Auto) (0.0 - 0.2 x10 3/uL) 0.05 Absolute Neuts (auto) (1.8 - 7.7 x10 3/uL) 6.55 Absolute Lymphs (auto) (1.0 - 4.8 x10 3/uL) 2.23 Absolute Monos (auto) (0.0 - 0.8 x10 3/uL) 1.05 H Recent Impressions:RADIOLOGY - XR CHEST 1 V 09/14 2004 Report Impression - Status: SIGNED Entered: 09/14/20182020 IMPRESSION: No acute cardiopulmonary findingsImpression By: YOHAN MarieAT SCAN - CT HEAD/BRAIN W/O CONT 09/14 2004 Report Impression - Status: SIGNED Entered: 09/14/20182021 IMPRESSION: NegativeImpression By: Tristan Jimenez MD Lab Imaging StatementLaboratory radiographic studies reviewed and considered in the medical decision-making. Re-Evaluation MDM Free Text MDM NotesFree Text MDM [id number] F with known seizure disorder seen for evaluation of increased seizure frequency. CT brain and CXR did not show acute abnormalities. Labs are reassuring. Patient to be transferred to [facility] for further evaluationand management. ED CourseMedication(s) OrderedMedication(s) Ordered:Central Nervous System Agents Sig/Godfrey Start time Last Medication Dose Route Stop Time Status Admin Levetiracetam 100 ML X1ED STA 09/14 2009 DCr 09/14 IV 09/14 Lorazepam 1 MG X1ED STA 09/14 193 DC 09/14 IM 09/14 Lorazepam 2 MG X1ED STA 09/14 191 CAN IM 09/14 1914 Electrolytic, Caloric, And Caren Sig/Godfrey Start time Last Medication Dose Route Stop Time Status Admin Sodium Chloride 1,000 ML X1ED STA 09/14 191 DC 09/14 IV 09/14 Patient Discharge Departure Vital Signs/ConditionVital SignsFirst Documented: Result Date Time Pulse Ox 98 09/14 1901 B/P 151/83 09/14 1901 B/P Mean 105 09/14 190 O2 Delivery Room air 09/14 1901 Temp 36.8 09/14 190 Pulse 86 09/14 190 Resp 18 09/14 1901 Last Documented: Result Date Time Pulse Ox 99 09/15 2115 B/P 128/63 09/14 2114 B/P Mean 84 09/14 2114 Pulse 94 09/14 2114 Resp 18 09/14 2114 Temp 36.8 09/14 2100 O2 Delivery Room air 09/14 190 All vital signs available at the time of this entry have been reviewed. Keanu Vázquez 09/14/181920:HPI-Seizure GeneralInitial Greet Date/Time 09/14/18 1908 Portions of this section were scribed by Kari Mark on 09/14/18 at 2050 Physical Exam Vital SignsVital Signs Portions of this section were scribed by Kari Mark on 09/14/18 at 1921 Interpretation Diagnostics Lab Results InterpretationResults Portions of this section were scribed by Kari Mark on 09/14/18 at 203 Re-Evaluation [facility] Free Text [facility] NotesAdditional [id number]: 27F presents c/o increasing seizure activity. Avialk-et-ofj reports pt follows w/ a Dr. German for seizures. MIL reports when pt has a seizure it is more posturing w/ extension of extremities. Admits to not noticing if pt's eyes normally twitch during a seizure. Pt was dx w/ seizures as a teen in highschool.[facility] reports pt had a mild seizure on Thursday (09/06/18) but then (09/09/18) since today she has had increased seizure activity. Discussed pt's case w/ CUTTING MACHINE OFFBEARER Kumar and further POC. PE: right eye deviation w/ eyes closed, no increased tone to upper and lower limbs, not following two step commands, responsive to pain stimuli, lungs CTA, abd soft/non-tender/no distention, heart RRR. Re-Evaluation/Progress #1Text/Dict NotePt is awake, alert, and responsive w/ no focal deficit. Pt reports she typicallyhas two seizures per day but since has had approx 4 a day. Time of Re-Eval 1957 ED CourseMedication(s) Ordered ConsultationConsultation Referral/Consult Name Bello Campos MD [employer] Consultant Called Neurology Requested Call Time 2034 Requested Call Date 09/14/18 Call Returned Call returned Call Returned Time 2036 Call Returned Date 09/14/18 [employer] Consultant Did not wish to discuss pt case at this time. States he will discuss pt case once pt is located at either [facility] or [facility]. Free Text [facility] NotesFree Text [facility] Notes27 year old female with past medical history of seizures who presents to the ED with a chief complaint of increased seizure frequency with at least 4 breakthrough seizures per day for the past 4-5 days per patient. Patient with what appears to be focal seizure on arrival to the ED with R gaze deviation and AMS and no generalized or other focal seizure activity. Patient administered ativan 1 mg IV and keppra 1 g IV. Patient's labs and imaging reviewed. Attemped to consult with Dr. Cotto with [facility], however, he states he will not consult with ED as it is not within his contract. Case discussed with [facility] hospitalist Dr. Knowles who has accepted the patient to [facility] for further management and observation. Risks and benefits of transfer discussed andthey are ameanble to the plan and all questions answered. Portions of this section were scribed by Kari Mark on 09/14/18 at 2034 Patient Discharge Departure Vital Signs/ConditionVital Signs Clinical ImpressionClinical ImpressionPrimary Impression: SeizuresTime of Impression 2049 Disposition DecisionAdmit Admit Physician Name Fanny Knowles DO Admit Physician Hospitalist Request Time 2040 Request Date 09/14/18 )( Admission Accepts Yes )( Accepted Time 2044 )( Accepted Date 09/14/18 Call Information will see patient, agrees with eval, agrees with plan Discharge/Care PlanCounseled Regarding Diagnosis, Lab results, Imaging studies, Need for admission Admit NoteI have spoken with the patient and/or caregivers. I have explained the patient'scondition, diagnoses and treatment plan based on the information available to meat this time. I have answered the patient's and/or caregiver's questions and addressed any concerns. The patient and/or caregivers have as good an understanding of the patient's diagnosis, condition and treatment plan as can beexpected at this point. The patient has been stabilized within the capability ofthe emergency department. The patient will be transported for further care and management or will be moved to an observation or inpatient service. I have communicated with the staff or medical practitioner taking over this patient's care. Supervising Physician Note MidLv/Doc Saw Pt 2I have personally interviewed and examined the patient. All charts, labs, and imaging studies were reviewed. I agree with this PA/telephone interviewer findings, exam and plan. Scribe StatementSKari ambrosio, 09/14/181925, scribing for and in the presence of [Dr. Vázquez].Signed By: Kari Mark, 09/14/181925 Provider Scribed StatementI personally performed the services described in this documentation and reviewedthe documentation that was dictated to the scribe(s) in my presence, and it accurately records my words and actions. Keanu Vázquez, 09/14/18 Portions of this section were scribed by Kari Mark on 09/14/18 at 2050 at 2059 at 2329RPT #:[id number] OF REPORTEDEmerfive [facility] medical [facility] department [id number] for patient [id number]
[2023-05-18] MEDS ORDERED: FOSPHENYTOIN PE 500 MG/10 ML VIAL ONE (20:14)
[2023-05-18] MEDS ORDERED: NA CHLORIDE 0.9% 100 ML ONE (20:14)
[2023-05-18 20:32] LABS: Hematocrit 40.2 % (36.0-45.0); MCV 90.7 fL (80-100); Platelets 278 thou/uL (152-406); RBC Red Blood Cell Count 4.44 M/uL (3.86-4.86)
[2023-05-18 20:33] LABS: Absolute Lymphocytes (CBC) 0.7 K/uL (0.7-4.9); Lymphocytes % 4.4 % (15.3-44.8); MPV 7.9 fL (7.6-11.3)
--- NOTE | 2023-05-18 20:45 | RAD REPORT ---
EXAM DESCRIPTION: CT - Head Brain Wo Cont - 05/18/2023 8:30 pm CLINICAL HISTORY: Seizure;Trauma Headache, seizure, trauma COMPARISON: Head Brain Wo Cont dated 11/21/2020; Head Brain Wo Cont dated 09/08/2020 TECHNIQUE: All CT scans are performed using dose optimization technique as appropriate and may inclu de automated exposure control or mA/KV adjustment according to patient size. FINDINGS: No intracranial hemorrhage, hydrocephalus or extra-axial fluid collection.Deep brain stimu lators noted.No areas of brain edema or evidence of midline shift. Mild mucosal thickening affects the left maxillary antrum. Paranasal sinuses and mastoids are otherwi se clear. The calvarium is intact. IMPRESSION: No acute intracranial abnormality.
[2023-05-18 21:05] LABS: Specific Gravity 1.025 (1.005-1.030)
[2023-05-18 21:12] LABS: Specific Gravity 1.025 (1.005-1.030); Urine Bacteria None Seen /HPF (<20); Urine Bilirubin NEGATIVE (Negative); Urine Blood Trace (Negative); Urine Clarity Clear (Clear); Urine Color Light-Yellow (Yellow); Urine Glucose NEGATIVE (Negative); Urine Mucus Slight /HPF (None Seen); Urine Protein TRACE (Negative); Urine RBC <5 /HPF (None Seen); Urine Urobilinogen Normal (Normal)
[2023-05-18] MEDS ORDERED: LORazepam 2 MG/ML VIAL ONE (22:01)
[2023-05-18] MEDS ORDERED: NA CHLORIDE 0.9% 1,000 ML ONE (22:02)
[2023-05-18 22:40] LABS: ALT/SGPT 25 U/L (13-56); Albumin 4.1 g/dL (3.4-5.0); Alkaline Phosphatase 77 U/L (45-117); BUN Blood Urea Nitrogen 8 mg/dL (7-18); Bicarbonate 26 mEq/L (21-32); Bilirubin Total 0.3 mg/dL (0.2-1.0); Glomerular Filtration Rate 122 ml/min (=/>90); Glucose Level 112 mg/dL (74-106); Sodium Level 136 mEq/L (136-145)
[2023-05-18 22:41] LABS: AST/SGOT 26 U/L (15-37); Bilirubin Direct < 0.1 mg/dL (0-0.2); Bilirubin Indirect, Calculated ND mg/dL (0.2-0.8); Magnesium 2.3 mg/dL (1.6-2.4); Potassium 4.3 mEq/L (3.5-5.1)
[2023-05-18 22:46] LABS: Barbiturates NEGATIVE (NEGATIVE); Benzodiazepines NEGATIVE (NEGATIVE); Cocaine NEGATIVE (NEGATIVE); METHAMPHETAM NEGATIVE (NEGATIVE); Methadone NEGATIVE (NEGATIVE); Opiates NEGATIVE (NEGATIVE); Phencyclidine NEGATIVE (NEGATIVE); THC Cannibis NEGATIVE (NEGATIVE)
--- NOTE | 2023-05-18 22:49 | ER ---
Nurse's Notes [facility] Name: Heather Hope Age: 32 yrs Sex: Female : 1990 Arrival Date: 05/18/2023 Time: 18:21 Bed 9 Private MD: Diagnosis: Other seizures;Acute breakthrough seizures. History of epilepsy Presentation: 05/18 18:54 Chief complaint: Parent and/or Guardian states: she has had back to back seizures iw today, I found her earlier today and her head was wedged between the commode and wall and she was banging her head against the wall during the seizure, I just want to get her head checked out , she normally does not have this many seizures in one day, she started a new seizure med a month ago, mother does not know what it is , pt in wheelchair, appears drowsy, mother states this is how she normally acts after her seizures. Coronavirus screen: At this time, the client does not indicate any symptoms associated with coronavirus-19. Ebola Screen: Patient negative for fever greater than or equal to 101.5 degrees Fahrenheit, and additional compatible Ebola Virus Disease symptoms Patient denies exposure to infectious person. Patient denies travel to an Ebola-affected area in the 21 days before illness onset. No symptoms or risks identified at this time. Onset of symptoms was May 18, 2023. 18:54 Method Of Arrival: Wheelchair iw 18:54 Acuity: DARLYN 3 iw 19:29 Initial Sepsis Screen: Does the patient meet any 2 criteria? No. Patient's initial lg3 sepsis screen is negative. Does the patient have a suspected source of infection? No. Patient's initial sepsis screen is negative. Risk Assessment: Do you want to hurt yourself or someone else? Patient reports no desire to harm self or others. Triage Assessment: 19:29 General: Appears in no apparent distress. Behavior is drowsy, flat. Pain: Denies pain. lg3 EENT: No deficits noted. Neuro: Delvalle Agitation-Sedation Scale (RASS): -2 Light sedation Level of Consciousness is post ictal. Cardiovascular: No deficits noted. Respiratory: No deficits noted. Airway is patent Respiratory effort is even, unlabored, Respiratory pattern is regular, symmetrical. GI: No deficits noted. No signs and/or symptoms were reported involving the gastrointestinal system. : No deficits noted. No signs and/or symptoms were reported regarding the genitourinary system. Derm: No deficits noted. No signs and/or symptoms reported regarding the dermatologic system. Skin is intact, is healthy with good turgor, Skin is dry, Skin is normal, Skin temperature is warm. Musculoskeletal: No deficits noted. Circulation, motion, and sensation intact. Range of motion: intact in all extremities. 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 Flu vaccine is not up to date. - Social history:: Smoking status: Patient denies any tobacco usage or history of. Patient/guardian denies using alcohol, street drugs. Screenin:08 [facility] ED Fall Risk Assessment (Adult) History of falling in the last 3 months, cm10 including since admission Yes- physiologic fall (2 pts) Confusion or Disorientation Yes (5 pts) Intoxicated or Sedated Yes (3 pts) Impaired Gait Yes (1 pt) Mobility Assist Device Used Yes (1 pt) Altered Elimination Yes (1 pt) Score/Fall Risk Level 3 or more points = High Risk Oriented to surroundings, Maintained a safe environment, Assessed \T\ reinforced patient's understanding of fall precautions, Provided non-skid footwear, Hourly rounding (assess needs \T\ fall precautionary measures) done, Used ambulatory aids as needed (educated on \T\ assisted with). Abuse screen: Denies threats or abuse. Denies injuries from another. Nutritional screening: No deficits noted. Tuberculosis screening: No symptoms or risk factors identified. Assessment: 20:30 General: Appears ill, Behavior is Pt post ictal from seizure but awakens when talked cm10 to.. Neuro: Level of Consciousness is post ictal. Respiratory: No deficits noted. Airway is patent Respiratory effort is even, unlabored, Respiratory pattern is regular, symmetrical. Derm: No deficits noted. Skin is intact, Skin is pink, warm \T\ dry. Musculoskeletal: Range of motion: intact in all extremities. 21:30 Reassessment: Multiple attempts to establish IV unsuccessful. Provider made aware. cm10 Provider at bedside placing left EJ. Cardiovascular: No deficits noted. Patient's skin is warm and dry. GI: No deficits noted. No signs and/or symptoms were reported involving the gastrointestinal system. : No deficits noted. No signs and/or symptoms were reported regarding the genitourinary system. EENT: No deficits noted. No signs and/or symptoms were reported regarding the EENT system. 21:52 Reassessment: Pt noted to be having a seizure at this time. Provider made aware and cm10 patient medicated per MAR. 22:00 Reassessment: Patient appears in no apparent distress at this time. Patient and/or cm10 family updated on plan of care and expected duration. Pain level reassessed. Pt remains post ictal but awakens when called. 23:00 Reassessment: Patient appears in no apparent distress at this time. Patient and/or cm10 family updated on plan of care and expected duration. Pain level reassessed. 23:15 Reassessment: Pt able to wake up, take medications and drink water with no difficulty. cm10 Vital Signs: 19:29 BP 142 / 87; Pulse 91; Resp 16 S; Temp 99.5(TE); Pulse Ox 100% on R/A; Weight 72.57 kg lg3 (R); Height 5 ft. 3 in. (R); 22:01 BP 121 / 76; Pulse 104; Resp 18; Pulse Ox 95% on R/A; cm10 19:29 Body Mass Index 28.34 (72.57 kg, 160.02 cm) lg3 Thomas Coma Score: 19:29 Eye Response: to voice(3). Motor Response: localizes pain(5). Verbal Response: lg3 confused(4). Total: 12. ED Course: 18:25 Patient arrived in ED. im 18:56 Triage completed. iw 18:57 Arm band placed on. iw 19:40 Sumeet Bailey MD is Attending Physician. sp3 19:57 Tara Bianchi, CLAUDIA is Primary Nurse. cm10 20:18 Initial lab(s) drawn, by me, sent to lab. Missed attempt(s): 20 gauge in right cm10 antecubital area. Bleeding controlled, band aid applied, catheter tip intact. 20:18 Basic Metabolic Panel Sent. cm10 20:18 CBC with Diff Sent. cm10 20:18 Hepatic Function Sent. cm10 20:18 Magnesium Sent. cm10 20:18 Carbamazepine (tegretol) Sent. cm10 20:23 Attending Physician role handed off by Sumeet Bailey MD sp4 20:23 Clay Marc MD is Attending Physician. sp4 20:32 CT Head Brain wo Cont In Process Unspecified. EDMS 22:08 Patient has correct armband on for positive identification. Side rails up X2. Child cm10 being held by parent. Seizure precautions initiated. Provided Education on: ER process and procedures. . Client placed on continuous cardiac and pulse oximetry monitoring. NIBP monitoring applied. 23:31 No provider procedures requiring assistance completed. IV discontinued, intact, cm10 bleeding controlled, No redness/swelling at site. Pressure dressing applied. Administered Medications: 21:45 Drug: Fosphenytoin IVPB 1 grams IVPB once; (mix in 50 to 100mL NS) Route: IVPB; Site: cm10 left jugular; 22:55 Follow up: Response: No adverse reaction; IV Status: Completed infusion; IV Intake: cm10 100ml 21:56 Drug: Ativan IVP 1 mg IVP once Route: IVP; Site: left jugular; cm10 22:55 Follow up: Response: No adverse reaction cm10 21:56 Drug: NS 0.9% IV 1000 ml IV at 1 bolus Per protocol; 1000 mL bolus Route: IV; Rate: 1 cm10 bolus; Site: left jugular; 22:55 Follow up: Response: No adverse reaction; IV Status: Completed infusion; IV Intake: cm10 1000ml 23:13 Drug: carBAMazepine PO 400 mg PO once Route: PO; cm10 23:29 Follow up: Response: No adverse reaction cm10 23:13 Drug: Ondansetron PO 4 mg PO once Route: PO; cm10 23:29 Follow up: Response: No adverse reaction cm10 Medication: 23:31 VIS not applicable for this client. cm10 Intake: 22:55 IV: 100ml; Total: 100ml. cm10 22:55 IV: 1000ml; Total: 1100ml. cm10 Outcome: 22:48 Discharge ordered by sp4 23:31 Discharged to home via wheelchair, with family, cm10 23:31 Condition: good 23:31 Discharge instructions given to in service coordinator, Instructed on discharge instructions, follow up and referral plans. medication usage, Demonstrated understanding of instructions, follow-up care, medications, Prescriptions given X 1, 23:32 Patient left the ED. cm10 Signatures: Dispatcher [employer] Lashawn Guy, CLAUDIA RN Ro Randall RN RN lg3 Sumeet Bailey MD MD sp3 Clay Marc MD MD sp4 Vianey Peck Clarissa, RN RN cm10 Corrections: (The following items were deleted from the chart) 22:11 20:30 Respiratory: No deficits noted. Airway is patent Respiratory effort is even, cm10 unlabored, Respiratory pattern is regular, symmetrical, cm10
--- NOTE | 2023-05-18 22:49 | EDPHYS ---
Physician Documentation [facility] Name: Heather Hope Age: 32 yrs Sex: Female : 1990 Arrival Date: 05/18/2023 Time: 18:21 Bed 9 Private MD: ED Physician Clay Marc HPI: 05/18 19:45 This 32 yrs old Female presents to ER via Wheelchair with complaints of Seizure. sp3 19:45 32-year-old female with a history of epilepsy currently on Tegretol, depression and sp3 anemia presents to the ED with chief complaint multiple seizures today including 1 where her mother found her seizing with her head hitting the wall as per her recollection. Mom states that she frequently gets seizures when she is on her menses which started 4 days ago. Patient is currently postictal so history, physical and ROS is somewhat limited in current history is from patient's mother.. 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 Flu vaccine is not up to date. - Social history:: Smoking status: Patient denies any tobacco usage or history of. Patient/guardian denies using alcohol, street drugs. ROS: 19:46 Unable to obtain ROS due to Postictal state, sp3 22:50 Constitutional: Negative for fever, chills, and weight loss, Neuro: Negative for sp4 headache, weakness, numbness, tingling, positive seizures 22:50 All other systems are negative, Exam: 19:46 Eyes: Pupils equal round and reactive to light, extra-ocular motions intact. Lids and sp3 lashes normal. Conjunctiva and sclera are non-icteric and not injected. Cornea within normal limits. Periorbital areas with no swelling, redness, or edema. Neck: Trachea midline, no thyromegaly or masses palpated, and no cervical lymphadenopathy. Supple, full range of motion without nuchal rigidity, or vertebral point tenderness. No Meningismus. Chest/axilla: Normal chest wall appearance and motion. Nontender with no deformity. No lesions are appreciated. Cardiovascular: Regular rate and rhythm with a normal S1 and S2. No gallops, murmurs, or rubs. Normal PMI, no JVD. No pulse deficits. Respiratory: Lungs have equal breath sounds bilaterally, clear to auscultation and percussion. No rales, rhonchi or wheezes noted. No increased work of breathing, no retractions or nasal flaring. Abdomen/GI: Soft, non-tender, with normal bowel sounds. No distension or tympany. No guarding or rebound. No evidence of tenderness throughout. Back: No spinal tenderness. No costovertebral tenderness. Full range of motion. Skin: Warm, dry with normal turgor. Normal color with no rashes, no lesions, and no evidence of cellulitis. MS/ Extremity: Pulses equal, no cyanosis. Neurovascular intact. Full, normal range of motion. 19:46 Constitutional: The patient appears Patient with no visible signs of trauma. Patient is postictal and maintaining her own airway with 100% room air pulse oxygenation and normal vital signs. 19:46 Unable to obtain exam due to altered mental status, Patient is postictal.. 20:53 ECG was reviewed by the Attending Physician. EKG at 2043 --there is normal sinus rhythm sp4 at the rate of 91, rightward axis, otherwise normal EKG. No active ectopy Vital Signs: 19:29 BP 142 / 87; Pulse 91; Resp 16 S; Temp 99.5(TE); Pulse Ox 100% on R/A; Weight 72.57 kg lg3 (R); Height 5 ft. 3 in. (R); 22:01 BP 121 / 76; Pulse 104; Resp 18; Pulse Ox 95% on R/A; cm10 19:29 Body Mass Index 28.34 (72.57 kg, 160.02 cm) lg3 Thomas Coma Score: 19:29 Eye Response: to voice(3). Motor Response: localizes pain(5). Verbal Response: lg3 confused(4). Total: 12. MDM: 19:42 Patient medically screened. sp3 19:47 Data reviewed: vital signs, nurses notes, lab test result(s), radiologic studies. ED sp3 course: 32-year-old female with recurrent seizures. Will obtain CT scan of the head, laboratory values, Tegretol level and I have loaded her with fosphenytoin 1 g IV. Mom and stated that patient is no longer on Keppra and due to her being taken off Keppra in the past, I chose fosphenytoin as the agent of choice. We will give additional benzodiazepines if required. Seizure precautions are in place. Patient will likely be signed out to night physician for final disposition.. 22:46 Differential diagnosis: drug overdose, cardiac arrhythmia, seizure, TIA. Consideration sp4 of Admission/Observation Escalation of care including admission/observation considered. ED course: Patient's seizures were treated with lorazepam IV, p.o. Tegretol was given also fosphenytoin IV was given. Will prescribe lorazepam 2 mg p.o. as needed breakthrough seizures. Also will advise visit with neurologist for adjustment of antiepileptics. . 22:50 ED course: Tegretol level is normal 4 .3. sp4 05/18 19:41 Order name: Basic Metabolic Panel; Complete Time: 22:43 sp3 05/18 19:41 Order name: CBC with Diff sp3 05/18 19:41 Order name: Hepatic Function; Complete Time: 22:43 sp3 05/18 19:41 Order name: Magnesium; Complete Time: 22:43 sp3 05/18 19:41 Order name: Test, Urine; Complete Time: 21:44 sp3 05/18 19:41 Order name: UDS; Complete Time: 22:50 sp3 05/18 19:41 Order name: Urinalysis w/ reflexes; Complete Time: 21:44 sp3 05/18 19:41 Order name: Carbamazepine (tegretol); Complete Time: 22:43 sp3 05/18 22:58 Order name: Manual Differential EDMS 05/18 19:41 Order name: CT Head Brain wo Cont; Complete Time: 21:44 sp3 05/18 19:41 Order name: Cardiac monitoring; Complete Time: 21:03 sp3 05/18 19:41 Order name: IV Saline Lock; Complete Time: 21:03 sp3 05/18 19:41 Order name: Labs collected and sent; Complete Time: 21:03 sp3 05/18 19:41 Order name: NPO; Complete Time: 21:03 sp3 05/18 19:41 Order name: O2 Per Protocol; Complete Time: 21:03 sp3 05/18 19:41 Order name: O2 Sat Monitoring; Complete Time: 21:03 sp3 05/18 19:41 Order name: Seizure Precautions; Complete Time: 20:18 sp3 EC:53 Rate is 91 beats/min. Rhythm is regular, Normal Sinus Rhythm. Right axis deviation sp4 noted. NH interval is normal. QRS interval is normal. QT interval is normal. No Q waves. T waves are Normal. No ST changes noted. Clinical impression: No evidence of ischemia. Interpreted by me. Reviewed by me. Administered Medications: 21:45 Drug: Fosphenytoin IVPB 1 grams IVPB once; (mix in 50 to 100mL NS) Route: IVPB; Site: cm10 left jugular; 22:55 Follow up: Response: No adverse reaction; IV Status: Completed infusion; IV Intake: cm10 100ml 21:56 Drug: Ativan IVP 1 mg IVP once Route: IVP; Site: left jugular; cm10 22:55 Follow up: Response: No adverse reaction cm10 21:56 Drug: NS 0.9% IV 1000 ml IV at 1 bolus Per protocol; 1000 mL bolus Route: IV; Rate: 1 cm10 bolus; Site: left jugular; 22:55 Follow up: Response: No adverse reaction; IV Status: Completed infusion; IV Intake: cm10 1000ml 23:13 Drug: carBAMazepine PO 400 mg PO once Route: PO; cm10 23:29 Follow up: Response: No adverse reaction cm10 23:13 Drug: Ondansetron PO 4 mg PO once Route: PO; cm10 23:29 Follow up: Response: No adverse reaction cm10 Disposition Summary: 05/18/23 22:48 Discharge Ordered Problem: new sp4 Symptoms: have improved sp4 Condition: Stable sp4 Diagnosis - Other seizures sp4 - Acute breakthrough seizures. History of epilepsy sp4 Followup: sp4 - With: Private Physician - When: 7 - 10 days - Reason: Recheck today's complaints Discharge Instructions: - Discharge Summary Sheet sp4 - Seizure, Adult sp4 Forms: - Patient Portal Instructions sp4 Prescriptions: - Ativan 2 mg Oral tablet - take 1 tablet ORAL route once daily As needed PRN breakthrough seizures; 12 sp4 tablet; Refills: 0, Product Selection Permitted Signatures: Dispatcher [employer] Lashawn Guy RN RN iw Gibson, Lacie, RN RN lg3 Sumeet Bailey MD MD sp3 Clay Marc MD MD sp4 Tara Bianchi, RN RN cm10
[2023-05-18] MEDS ORDERED: ONDANSETRON 4 MG (ODT) TAB ONE (23:17)
[2023-05-18] MEDS ORDERED: carBAMazepine 200 MG TAB ONE (23:17)
[2023-05-19 01:37] LABS: Blood Morphology Comment NOT SEEN (NOT SEEN); Platelet Estimate ADEQ
== END 2023-05-18 23:32 | disposition home or self-care (01) ==
LOC: ER 18:21
DX: G40.802 Other epilepsy, not intractable, without status epilepticus (principal)
CPT/HCPCS: 96365; 93005; 85025; 81001; 80048; 36415; 83735; 80156; 81025; 80076; 80307; 70450; 96375; 99284; Q0162; Q2009; J7030

== ENCOUNTER 2024-07-13 18:23 | Emergency (ER) | payer OTHER ==
[2024-07-13 19:41] LABS: SARS-CoV-2 Antigen CONTROL BLUE LINE VIS/BG OK; SARS-CoV-2 Antigen Rapid Res Negative (Negative)
--- NOTE | 2024-07-13 21:04 | RAD REPORT ---
EXAMINATION: TWO VIEW CHEST XR CLINICAL INDICATION: Female, 33 years old. [facility] MA[facility] COUGH Bed Name: [facility] TECHNIQUE: 2 view radiographs of the chest were performed. COMPARISON: 09/26/2023 FINDINGS: The lungs are well inflated and clear. No pneumothorax or sizable effusion. The heart is normal in si ze. Mediastinal contours are unremarkable. Stimulator battery pack present along the right chest wall. IMPRESSION: No acute or significant abnormalities.
--- NOTE | 2024-07-13 21:19 | ER ---
Nurse's Notes [facility] Name: Heather Hope Age: 33 yrs Sex: Female : 1990 Arrival Date: 07/13/2024 Time: 18:23 Bed 12 Private MD: Diagnosis: Acute upper respiratory infection, unspecified Presentation: 07/13 19:06 Chief complaint: Patient states: I have fever painful cough no secretions , sore throat bm8 and body aches for three days. Coronavirus screen: Vaccine status: Patient reports being unvaccinated. Ebola Screen: Patient negative for fever greater than or equal to 101.5 degrees Fahrenheit, and additional compatible Ebola Virus Disease symptoms Patient denies exposure to infectious person. Patient denies travel to an Ebola-affected area in the 21 days before illness onset. No symptoms or risks identified at this time. Initial Sepsis Screen: Does the patient meet any 2 criteria? HR > 90 bpm. No. Patient's initial sepsis screen is negative. Does the patient have a suspected source of infection? No. Patient's initial sepsis screen is negative. Risk Assessment: Do you want to hurt yourself or someone else? Patient reports no desire to harm self or others. Onset of symptoms was July 10, 2024. 19:06 Method Of Arrival: Ambulatory bm8 19:06 Acuity: DARLYN 4 bm8 Triage Assessment: 19:08 General: Appears in no apparent distress. comfortable, Behavior is calm, cooperative, bm8 appropriate for age. Pain: Complains of pain in chest Pain currently is 7 out of 10 on a pain scale. Quality of pain is described as aching, when coughing. EENT: No deficits noted. No signs and/or symptoms were reported regarding the EENT system. Neuro: No deficits noted. Level of Consciousness is awake, alert, obeys commands, Oriented to person, place, time, situation, Appropriate for age. Cardiovascular: Heart tones S1 S2 present Capillary refill < 3 seconds in bilateral fingers Patient's skin is warm and dry. Respiratory: Reports cough that is pain with cough Airway is patent Trachea midline Respiratory effort is even, unlabored, Respiratory pattern is regular, symmetrical, Breath sounds are clear bilaterally. GI: No signs and/or symptoms were reported involving the gastrointestinal system. : No signs and/or symptoms were reported regarding the genitourinary system. Derm: No signs and/or symptoms reported regarding the dermatologic system. Musculoskeletal: No signs and/or symptoms reported regarding the musculoskeletal system. 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 - Infectious Disease History:: Denies. - Social history:: Smoking status: Patient denies any tobacco usage or history of. Screenin:14 [facility] ED Fall Risk Assessment (Adult) History of falling in the last 3 months, bm8 including since admission No falls in past 3 months (0 pts) Confusion or Disorientation No (0 pts) Intoxicated or Sedated No (0 pts) Impaired Gait No (0 pts) Mobility Assist Device Used No (0 pt) Altered Elimination No (0 pt) Score/Fall Risk Level 0 - 2 = Low Risk Oriented to surroundings, Maintained a safe environment, Educated pt \T\ family on fall prevention, incl call for assistance when getting out of bed, Assessed \T\ reinforced patient's understanding of fall precautions, Hourly rounding (assess needs \T\ fall precautionary measures) done, Used ambulatory aids as needed (educated on \T\ assisted with), Used gait belt as appropriate. Abuse screen: Denies threats or abuse. Nutritional screening: No deficits noted. Tuberculosis screening: No symptoms or risk factors identified. Assessment: 19:14 Reassessment: see triage assessment. bm8 20:58 Reassessment: Patient appears in no apparent distress at this time. Patient and/or jb4 family updated on plan of care and expected duration. Pain level reassessed. Patient is alert, oriented x 3, equal unlabored respirations, skin warm/dry/pink. 21:24 Reassessment: Pt discharged by ER provider. jb4 Vital Signs: 19:06 BP 140 / 84; Pulse 101; Resp 18; Temp 98.5; Pulse Ox 96% on R/A; Weight 73.03 kg; bm8 Height 5 ft. 3 in. ; Pain 7/10; 19:06 Body Mass Index 28.52 (73.03 kg, 160.02 cm) bm8 19:06 Pain Scale: Adult bm8 Thomas Coma Score: 19:14 Eye Response: spontaneous(4). Motor Response: obeys commands(6). Verbal Response: bm8 oriented(5). Total: 15. ED Course: 18:26 Patient arrived in ED. im 18:36 Nabor Diggs FNP-C [facility]. dr5 18:36 Andres Sandoval MD is Attending Physician. dr5 19:08 Triage completed. bm8 19:08 Arm band placed on right wrist. bm8 19:14 Patient has correct armband on for positive identification. Client placed on continuous bm8 cardiac and pulse oximetry monitoring. NIBP monitoring applied. Pulse ox on. NIBP on. Verbal reassurance given. plan of care discussed with pt. 19:14 No provider procedures requiring assistance completed. COVID swab sent to lab. Flu bm8 and/or RSV swab sent to lab. Strep swab sent to lab. Patient maintains SpO2 saturation greater than 95% on room air. 20:15 Chest Pa And Lat (2 Views) XRAY In Process Unspecified. EDMS 20:58 Provided Education on: plan of care. jb4 21:18 Andres Sandoval MD is Referral Physician. dr5 21:24 Patient did not have IV access during this emergency room visit. jb4 Administered Medications: No medications were administered Medication: 19:14 VIS not applicable for this client. bm8 Outcome: 21:18 Discharge ordered by . dr5 21:23 Discharged to home ambulatory, jb4 21:23 Condition: stable 21:23 Discharge instructions given to patient, Instructed on discharge instructions, follow up and referral plans. Demonstrated understanding of instructions, follow-up care, medications, Prescriptions given X 3, 21:24 Patient left the ED. jb4 Signatures: Dispatcher [employer] EDWA Don Ag, RN RN jb4 Vianey Peck Seamus Amaya RN RN bm8 Nabor Diggs FNP-C PRESSURISED CONTAINER FILLER-Cdr5
--- NOTE | 2024-07-13 21:19 | EDPHYS ---
Physician Documentation [facility] Name: Heather Hope Age: 33 yrs Sex: Female : 1990 Arrival Date: 07/13/2024 Time: 18:23 Bed 12 Private MD: ED Physician Andres Sandoval HPI: 07/14 01:12 This 33 yrs old Female presents to ER via Ambulatory with complaints of Flu dr5 Symptoms. 01:12 Onset: The symptoms/episode began/occurred 3 day(s) ago. 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 Patient reports productive cough.. 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 - Infectious Disease History:: Denies. - Social history:: Smoking status: Patient denies any tobacco usage or history of. ROS: 07/14 01:18 Constitutional: as per hpi dr5 Exam: 01:18 Constitutional: This is a well developed, well nourished patient who is awake, alert, dr5 and in no acute distress. Head/Face: Normocephalic, atraumatic. Eyes: Pupils equal round and reactive to light, extra-ocular motions intact. Lids and lashes normal. Conjunctiva and sclera are non-icteric and not injected. Cornea within normal limits. Periorbital areas with no swelling, redness, or edema. Neck: Trachea midline, no thyromegaly or masses palpated, and no cervical lymphadenopathy. Supple, full range of motion without nuchal rigidity, or vertebral point tenderness. No Meningismus. Chest/axilla: Normal chest wall appearance and motion. Nontender with no deformity. No lesions are appreciated. Cardiovascular: Regular rate and rhythm with a normal S1 and S2. Normal PMI, no JVD. No pulse deficits. Respiratory: Lungs have equal breath sounds bilaterally, clear to auscultation. No rales, rhonchi or wheezes noted. No increased work of breathing, no retractions or nasal flaring. Back: No spinal tenderness. No costovertebral tenderness. Full range of motion. Skin: Warm, dry with normal turgor. Normal color with no rashes, no lesions, and no evidence of cellulitis. MS/ Extremity: Pulses equal, no cyanosis. Neurovascular intact. Full, normal range of motion. Neuro: Awake and alert, GCS 15, oriented to person, place, time, and situation. Cranial nerves II-XII grossly intact. Motor strength 5/5 in all extremities. Sensory grossly intact. Cerebellar exam normal. Normal gait. Vital Signs: 07/13 19:06 BP 140 / 84; Pulse 101; Resp 18; Temp 98.5; Pulse Ox 96% on R/A; Weight 73.03 kg; bm8 Height 5 ft. 3 in. ; Pain 7/10; 19:06 Body Mass Index 28.52 (73.03 kg, 160.02 cm) bm8 19:06 Pain Scale: Adult bm8 [place] Coma Score: 19:14 Eye Response: spontaneous(4). Motor Response: obeys commands(6). Verbal Response: bm8 oriented(5). Total: 15. MDM: 18:37 Medical Screening Exam initiated dr5 07/14 01:18 Differential diagnosis: viral Infection, bacterial infection, URI. Data reviewed: vital dr5 signs, nurses notes. Care significantly affected by the following chronic conditions: Depression, anemia, seizures. Care significantly affected by the following Social Determinants of Health: Poor access to healthcare and/or lack of insurance, Poor access to transportation, Problems related to employment. Counseling: I had a detailed discussion with the patient and/or guardian regarding the historical points, exam findings, and any diagnostic results supporting the discharge/admit diagnosis, the presence of at least one elevated blood pressure reading (>120/80) during this emergency department visit, lab results, radiology results, the need for outpatient follow up, for definitive care, a family practitioner. ED course: Will send patient home with cough medicine, Flonase, and steroid Dosepak. Recommended increasing hydration and alternating Tylenol Motrin as needed for fever and pain. Patient is well-appearing on discharge. All questions answered.. 07/13 19:11 Order name: Flu; Complete Time: 19:41 [facility] 07/13 19:11 Order name: SARS RAPID; Complete Time: 19:42 [facility] 07/13 19:11 Order name: Strep; Complete Time: 19:41 [facility] 07/13 19:44 Order name: Throat Culture [facility] 07/13 19:42 Order name: Chest Pa And Lat (2 Views) XRAY; Complete Time: 21:06 dr5 Administered Medications: No medications were administered Disposition: 09:00 Co-signature as Attending Physician, Andres Sandoval MD I reviewed the patient's care rt provided by the Advanced Practice Provider and agree with the diagnosis and treatment plan. Disposition Summary: 07/13/24 21:18 Discharge Ordered Notes: Location: Home dr5 Condition: Stable dr5 Diagnosis - Acute upper respiratory infection, unspecified dr5 Followup: dr5 - With: Emergency Department - When: As needed - Reason: Worsening of condition Followup: dr5 - With: Private Physician - When: 1 - 2 days - Reason: Recheck today's complaints, Continuance of care, Re-evaluation by your physician Discharge Instructions: - Discharge Summary Sheet dr5 - Upper Respiratory Infection, Adult dr5 Forms: - Work release form dr5 - Medication Reconciliation Form dr5 - Patient Portal Instructions dr5 - Leadership Thank You Letter dr5 Prescriptions: - Flonase Allergy Relief 50 mcg/actuation Nasal spray, suspension - spray 2 spray INTRANASAL route daily As needed administer into each nostril; 1 dr5 application; Refills: 0, Product Selection Permitted - Medrol ([place]) 4 mg Oral Tablets, Dose Pack - take 1 tablet ORAL route as directed - follow package instructions; 1 packet; dr5 Refills: 0, Product Selection Permitted - Guaifenesin AC 10-100 mg/5 mL Oral Liquid - take 10 milliliters ORAL route every 4 hours As needed; 240 milliliter; dr5 Refills: 0, Product Selection Permitted Signatures: Dispatcher [employer] Andres Montague MD MD rt Seamus Amaya, RN RN bm8 Nabor Diggs FNP-Wanda ALEJANDROP-Cdr5
[2024-07-14 07:09] VITALS: BP 140/84; TEMP 98.5; O2SAT 96
== END 2024-07-13 21:24 | disposition home or self-care (01) ==
LOC: ER 18:23
DX: J06.9 Acute upper respiratory infection, unspecified (principal); Z11.52 Encounter for screening for COVID-19
CPT/HCPCS: 36415; 71046; 87070; 87081; 87804; 87811

== ENCOUNTER 2024-08-21 13:31 | Emergency (ER) | payer OTHER ==
[2024-08-21] MEDS ORDERED: NA CHLORIDE 0.9% 1,000 ML ONE (14:41)
--- NOTE | 2024-08-21 15:12 | RAD REPORT ---
EXAM:Ankle Right 3 View CLINICAL HISTORY: Ankle pain FINDINGS: No fracture or dislocation seen.
[2024-08-21 15:43] LABS: Absolute Eosinophils 0.1 K/uL (0-0.5); Absolute Lymphocytes (CBC) 1.3 K/uL (0.7-4.9); Absolute Monocytes 0.4 K/uL (0.1-1.3); Absolute Neutrophil 3.8 K/uL (1.8-8.0); Basophils % 0.8 % (0-1.3); Eosinophils % 1.7 % (0-4.4); Hematocrit 40.9 % (36.0-45.0); Lymphocytes % 23.4 % (15.3-44.8); MCH 30.6 pg (27.0-35.0); MCHC 34.2 g/dL (32.0-36.0); MCV 89.6 fL (80-100); MPV 7.9 fL (7.6-11.3); Monocytes % 6.6 % (3.3-12.3); Neutrophils % 67.5 % (41.7-73.7); Nucleated Red Blood Cells % 0.2 % (0-0); Platelets 243 thou/uL (152-406); RBC Red Blood Cell Count 4.57 M/uL (3.86-4.86); Red Cell Distribution Width 13.4 % (12.1-15.2)
[2024-08-21 15:52] LABS: PT Prothrombin Time 11.6 SECONDS (10-13.0); PTT, Activated Partial Thromb 30.4 SECONDS (27.2-37.4); Protime INR 1.02
[2024-08-21 16:05] LABS: ALT/SGPT 17 U/L (13-56); AST/SGOT 14 U/L (15-37); Alkaline Phosphatase 68 U/L (45-117); Anion Gap 10.6 mEq/L (5.0-15.0); BUN Blood Urea Nitrogen 7 mg/dL (7-18); Bicarbonate 24 mEq/L (21-32); Bilirubin Total 0.4 mg/dL (0.2-1.0); Globulin 3.9 g/dL (2.3-3.5); Glomerular Filtration Rate 122 ml/min (=/>90); Glucose Level 85 mg/dL (74-106); Potassium 3.6 mEq/L (3.5-5.1); Protein, Total 7.9 g/dL (6.4-8.2); Sodium Level 137 mEq/L (136-145)
[2024-08-21 16:15] LABS: Bilirubin Direct < 0.2 mg/dL (0-0.2); Bilirubin Indirect, Calculated 0.2 mg/dL (0.2-0.8)
[2024-08-21 16:27] LABS: Specific Gravity 1.022 (1.005-1.030)
[2024-08-21 16:29] LABS: Specific Gravity 1.022 (1.005-1.030); Sqamous Epithelial <5 /HPF (None Seen); Urine Bacteria <20 /HPF (<20); Urine Bilirubin NEGATIVE (Negative); Urine Blood Negative (Negative); Urine Clarity Clear (Clear); Urine Color Light-Yellow (Yellow); Urine Culture Reflex Order NOT NEEDED; Urine Glucose NEGATIVE (Negative); Urine Ketones 1+ (Negative); Urine Microscopic Reflex YN ORDER UMIC; Urine Mucus Slight /HPF (None Seen); Urine Nitrite NEGATIVE (Negative); Urine Protein NEGATIVE (Negative); Urine RBC <5 /HPF (None Seen); Urine Urobilinogen Normal (Normal); Urine WBC <5 /HPF (<5); Urine pH 6.5 (5.0-7.0)
[2024-08-21 16:30] LABS: Barbiturates NEGATIVE (NEGATIVE); Benzodiazepines POSITIVE (NEGATIVE); Cocaine NEGATIVE (NEGATIVE); METHAMPHETAM NEGATIVE (NEGATIVE); Methadone NEGATIVE (NEGATIVE); Opiates NEGATIVE (NEGATIVE); Phencyclidine NEGATIVE (NEGATIVE); THC Cannibis NEGATIVE (NEGATIVE)
--- NOTE | 2024-08-21 17:54 | ER ---
Nurse's Notes [facility] Name: Heather Hope Age: 33 yrs Sex: Female : 1990 Arrival Date: 08/21/2024 Time: 13:31 Bed 2 Private MD: Diagnosis: Other seizures;Pain in right ankle and joints of right foot Presentation: 08/21 13:36 Chief complaint: EMS states: Toned out to [facility] in [place] for witnessed jl7 seizure. Coronavirus screen: At this time, the client does not indicate any symptoms associated with coronavirus-19. Ebola Screen: No symptoms or risks identified at this time. Initial Sepsis Screen: Does the patient meet any 2 criteria? No. Patient's initial sepsis screen is negative. Does the patient have a suspected source of infection? No. Patient's initial sepsis screen is negative. Risk Assessment: Do you want to hurt yourself or someone else? Patient reports no desire to harm self or others. Onset of symptoms was August 21, 2024. Care prior to arrival: Glucose check: 92. 13:36 Method Of Arrival: EMS: [place] [facility] jl7 13:36 Acuity: DARLYN 2 jl7 Triage Assessment: 13:37 General: Appears in no apparent distress. uncomfortable, Behavior is calm, cooperative, jl7 appropriate for age. Pain: Denies pain. Neuro: Level of Consciousness is awake, alert, obeys commands, Oriented to person, place, time, situation. Cardiovascular: Patient's skin is warm and dry. Respiratory: Airway is patent Respiratory effort is even, unlabored, Respiratory pattern is regular, symmetrical. Derm: Skin is pink, warm \T\ dry. 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 - Infectious Disease History:: Denies. - Social history:: Smoking status: Patient denies any tobacco usage or history of. Screenin:40 [facility] ED Fall Risk Assessment (Adult) History of falling in the last 3 months, jl7 including since admission Yes- physiologic fall (2 pts) Confusion or Disorientation No (0 pts) Intoxicated or Sedated Yes (3 pts) Impaired Gait No (0 pts) Mobility Assist Device Used No (0 pt) Altered Elimination No (0 pt) Score/Fall Risk Level 0 - 2 = Low Risk Oriented to surroundings, Maintained a safe environment. Abuse screen: Denies threats or abuse. Denies injuries from another. Nutritional screening: No deficits noted. Tuberculosis screening: No symptoms or risk factors identified. Assessment: 13:40 General: See triage assessment. jl7 14:30 Reassessment: Patient appears in no apparent distress at this time. No changes from jl7 previously documented assessment. Patient and/or family updated on plan of care and expected duration. Pain level reassessed. 15:36 Reassessment: Patient appears in no apparent distress at this time. No changes from jl7 previously documented assessment. Patient and/or family updated on plan of care and expected duration. Pain level reassessed. 16:13 General: Appears comfortable, Behavior is calm, cooperative, appropriate for age. ap3 Respiratory: Airway is patent Respiratory effort is even, unlabored. Vital Signs: 13:36 BP 125 / 98; Pulse 88; Resp 17; Temp 97.8; Pulse Ox 100% ; Weight 73.94 kg; Height 5 jl7 ft. 3 in. ; Pain 0/10; 14:55 BP 142 / 86; Pulse 72; Resp 14; Pulse Ox 100% ; jl7 16:17 BP 124 / 79; Pulse 76; Resp 16; Pulse Ox 100% ; ap3 16:53 BP 123 / 79; Pulse 98; Resp 15; Pulse Ox 100% ; jl7 18:22 BP 122 / 74; Pulse 84; Resp 16; Pulse Ox 98% on R/A; ap3 13:36 Body Mass Index 28.87 (73.94 kg, 160.02 cm) jl7 13:36 Pain Scale: Adult jl7 Thomas Coma Score: 13:37 Eye Response: to voice(3). Motor Response: obeys commands(6). Verbal Response: jl7 oriented(5). Total: 14. ED Course: 13:36 Patient arrived in ED. jl7 13:37 Triage completed. jl7 13:37 Arm band placed on right wrist. jl7 13:40 Patient has correct armband on for positive identification. Provided Education on: use jl7 of call craven. Client placed on continuous cardiac and pulse oximetry monitoring. NIBP monitoring applied. manifest/order organizer print orders on. Warm blanket given. 13:43 Seizure precautions initiated. jl7 13:49 Steve Arreaga PA is PHCP. cp 13:49 Steve Lawrence MD is Attending Physician. cp 14:03 Arlene Lewis, RN is Primary Nurse. ap3 14:12 EKG done, by ED staff, reviewed by Steve Lawrence MD. ap3 14:50 Missed attempt(s): 22 gauge in right forearm. Bleeding controlled, band aid applied, jl7 catheter tip intact. 15:00 XRAY Ankle RIGHT 3 view In Process Unspecified. EDMS 15:33 Accessed peripheral vein via ultrasound, utilizing dynamic ultrasound technique using hb 20G Nexia IV catheter per hospital protocol. Good blood return. Flushes easily. 20g RAC. 16:13 Urinalysis w/ reflexes Sent. ap3 16:13 Urine Drug Screen Sent. ap3 16:15 Straight cath inserted, using sterile technique, 14 Fr. Specimen obtained. Returned ap3 clear yellow urine. Patient tolerated well. 18:22 No provider procedures requiring assistance completed. IV discontinued, intact, ap3 bleeding controlled, No redness/swelling at site. Pressure dressing applied. Administered Medications: 15:32 Drug: NS 0.9% IV 1000 ml IV at 1 bolus Per protocol; to be given as a bolus over 60 jl7 minutes Route: IV; Rate: 1 bolus; Site: left antecubital; 18:22 Follow up: IV Status: Completed infusion; IV Intake: 1000ml ap3 Medication: 13:40 VIS not applicable for this client. jl7 Intake: 18:22 IV: 1000ml; Total: 1000ml. ap3 Outcome: 17:53 Discharge ordered by . cp 18:22 Discharged to patient is awaiting ride at this time ap3 18:22 Condition: good 18:22 Discharge instructions given to patient, Instructed on discharge instructions, follow up and referral plans. medication usage, Demonstrated understanding of instructions, follow-up care, medications, Prescriptions given X 1, 18:45 Patient left the ED. ap3 Signatures: Dispatcher [employer] EDMI Steve Arreaga, PA PA cp Nixon, Kiley, RN RN hb Ramonita Barrera, RN RN jl7 Arlene Lewis RN RN ap3
--- NOTE | 2024-08-21 17:54 | EDPHYS ---
Physician Documentation [facility] Name: Heather Hope Age: 33 yrs Sex: Female : 1990 Arrival Date: 08/21/2024 Time: 13:31 Bed 2 Private MD: ED Physician Steve Lawrence HPI: 08/21 14:05 This 33 yrs old Female presents to ER via EMS with complaints of Seizure. cp 14:05 The patient presents after having a single isolated seizure, that lasted an unknown cp period of time, the episode(s) was witnessed, by a bystander. 14:05 Character of seizure(s): Loss of consciousness: the patient experienced loss of cp consciousness, Motor activity: generalized, shaking all over, Incontinence: none. 14:05 Seizure onset: just prior to arrival. cp 14:05 Seizure Hx: Seizure medications: Tegretol. Associated injury: Right lower extremity: cp right ankle, tenderness. EMS care: none. Current symptoms: Currently, the patient is not experiencing any symptoms. 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 - Infectious Disease History:: Denies. - Social history:: Smoking status: Patient denies any tobacco usage or history of. ROS: 14:10 Neuro: Positive for history of seizure, cp 14:10 Constitutional: Negative for body aches, chills, fever, poor PO intake, cp 14:10 Eyes: Negative for injury, pain, redness, and discharge, cp 14:10 Cardiovascular: Negative for chest pain, palpitations, 14:10 Respiratory: Negative for cough, shortness of breath, wheezing, 14:10 Abdomen/GI: Negative for abdominal pain, nausea, vomiting, and diarrhea, 14:10 Back: Negative for pain at rest, pain with movement, 14:10 MS/extremity: Positive for pain, swelling, tenderness, of the right ankle, Negative for decreased range of motion, deformity, paresthesias, 14:10 All other systems are negative, Exam: 13:15 ECG was reviewed by the Attending Physician. cp 14:15 Constitutional: The patient appears in no acute distress, alert, awake, cp non-diaphoretic, non-toxic, well developed, well nourished, 14:15 Head/Face: Normocephalic, atraumatic. cp 14:15 Eyes: Periorbital structures: appear normal, Pupils: equal, round, and reactive to cp light and accomodation, Extraocular movements: intact throughout, Conjunctiva: normal, no exudate, no injection, Sclera: no appreciated abnormality, Lids and lashes: appear normal, bilaterally, 14:15 ENT: External ear(s): are unremarkable, Ear canal(s): are normal, clear, TM's: dullness, bilaterally, Nose: is normal, Mouth: Lips: moist, Oral mucosa: moist, Posterior pharynx: Airway: no evidence of obstruction, patent, 14:15 Neck: ROM/movement: is normal, is supple, without pain, no range of motions limitations, no meningismus, no nuchal rigidity, 14:15 Chest/axilla: Inspection: normal, Palpation: is normal, no crepitus, no tenderness, 14:15 Cardiovascular: Rate: normal, Rhythm: regular, Edema: is not appreciated, JVD: is not cp appreciated, 14:15 Respiratory: the patient does not display signs of respiratory distress, Respirations: normal, no use of accessory muscles, no retractions, labored breathing, is not present, Breath sounds: are clear throughout, no decreased breath sounds, no stridor, no wheezing, 14:15 Abdomen/GI: Inspection: abdomen appears normal, Palpation: abdomen is soft and non-tender, in all quadrants, 14:15 Back: ROM is normal, 14:15 Musculoskeletal/extremity: Extremities: noted in the right ankle: pain, tenderness, There is no evidence of decreased ROM, deformity, ROM: limited passive range of motion due to pain, in the right ankle, 14:15 Neuro: Orientation: to person, place \T\ time. Mentation: able to follow commands, slow to respond, Motor: moves all fours, no focal deficits, Sensation: no obvious gross deficits, Vital Signs: 13:36 BP 125 / 98; Pulse 88; Resp 17; Temp 97.8; Pulse Ox 100% ; Weight 73.94 kg; Height 5 jl7 ft. 3 in. ; Pain 0/10; 14:55 BP 142 / 86; Pulse 72; Resp 14; Pulse Ox 100% ; jl7 16:17 BP 124 / 79; Pulse 76; Resp 16; Pulse Ox 100% ; ap3 16:53 BP 123 / 79; Pulse 98; Resp 15; Pulse Ox 100% ; jl7 18:22 BP 122 / 74; Pulse 84; Resp 16; Pulse Ox 98% on R/A; ap3 13:36 Body Mass Index 28.87 (73.94 kg, 160.02 cm) jl7 13:36 Pain Scale: Adult jl7 Moon Coma Score: 13:37 Eye Response: to voice(3). Motor Response: obeys commands(6). Verbal Response: jl7 oriented(5). Total: 14. MDM: 13:49 Medical Screening Exam initiated cp 14:15 Differential diagnosis: cerebral vascular accident, drug overdose, cardiac arrhythmia, cp seizure, TIA. 17:52 Data reviewed: vital signs, nurses notes, lab test result(s), radiologic studies, plain cp films, and as a result, I will discharge patient. 17:52 Counseling: I had a detailed discussion with the patient and/or guardian regarding the cp historical points, exam findings, and any diagnostic results supporting the discharge/admit diagnosis, lab results, radiology results, to return to the emergency department if symptoms worsen or persist or if there are any questions or concerns that arise at home. Response to treatment: the patient's symptoms have markedly improved after treatment, and as a result, I will discharge patient. 08/21 14:02 Order name: Acetaminophen; Complete Time: 17:36 cp 08/21 14:02 Order name: Basic Metabolic Panel; Complete Time: 17:36 cp 08/21 14:02 Order name: CBC with Diff; Complete Time: 17:36 cp 08/21 14:02 Order name: ETOH Level; Complete Time: 17:36 cp 08/21 14:02 Order name: Hepatic Function; Complete Time: 17:36 cp 08/21 14:02 Order name: PT-INR; Complete Time: 17:36 cp 08/21 14:02 Order name: Test, Urine; Complete Time: 17:36 cp 08/21 14:02 Order name: Ptt, Activated; Complete Time: 17:36 cp 08/21 14:02 Order name: Salicylate; Complete Time: 17:36 cp 08/21 14:02 Order name: Urinalysis w/ reflexes; Complete Time: 17:36 cp 08/21 14:02 Order name: Urine Drug Screen; Complete Time: 17:36 cp 08/21 14:02 Order name: XRAY Ankle RIGHT 3 view; Complete Time: 17:36 cp 08/21 14:02 Order name: EKG - Nurse/Tech; Complete Time: 14:12 cp 08/21 14:02 Order name: IV Saline Lock; Complete Time: 15:33 cp 08/21 14:02 Order name: Labs collected and sent; Complete Time: 15:33 cp 08/21 14:02 Order name: Suicide Screening ([place]); Complete Time: 15:33 cp 08/21 17:38 Order name: Aircast Ankle Splint; Complete Time: 18:22 cp EC:15 Rate is 81 beats/min. Rhythm is regular. [place] interval is normal. QRS interval is normal. cp QT interval is normal. T waves are Inverted in leads III, aVR. Interpreted by me. Reviewed by me. Administered Medications: 15:32 Drug: NS 0.9% IV 1000 ml IV at 1 bolus Per protocol; to be given as a bolus over 60 jl7 minutes Route: IV; Rate: 1 bolus; Site: left antecubital; 18:22 Follow up: IV Status: Completed infusion; IV Intake: 1000ml ap3 Disposition Summary: 08/21/24 17:53 Discharge Ordered Notes: Location: Home cp Problem: new cp Symptoms: have improved cp Condition: Stable cp Diagnosis - Other seizures cp - Pain in right ankle and joints of right foot cp Followup: cp - With: Private Physician - When: 2 - 3 days - Reason: Recheck today's complaints Discharge Instructions: - Discharge Summary Sheet cp - Seizure, Adult cp - Ankle Pain cp Forms: - Medication Reconciliation Form cp - Antibiotic Education cp - Prescription Opioid Use cp - Patient Portal Instructions cp - Leadership Thank You Letter cp Prescriptions: - Ibuprofen 800 mg Oral Tablet - take 1 tablet ORAL route every 8 hours As needed take with food; 30 tablet; cp Refills: 0, Product Selection Permitted Signatures: Dispatcher [employer] EDMS Steve Arreaga PA PA cp Leal, Jahala, RN RN jl7 Arlene Lewis RN ap3 Corrections: (The following items were deleted from the chart) 14:03 14:02 ACETAMINOPHEN+C.LAB.BRZ ordered. EDMS EDMS 14:03 14:02 BASIC METABOLIC PANEL+C.LAB.BRZ ordered. EDMS EDMS 14:03 14:02 CBC+H.LAB.BRZ ordered. EDMS EDMS 14:03 14:02 ETHANOL+C.LAB.BRZ ordered. EDMS EDMS 14:03 14:02 HEPATIC FUNCTION+C.LAB.BRZ ordered. EDMS EDMS 14:03 14:02 PROTIME (+INR)+COAG.LAB.BRZ ordered. EDMS EDMS 14:03 14:02 Test, Urine+UC.LAB.BRZ ordered. EDMS EDMS 14:03 14:02 PTT, ACTIVATED+COAG.LAB.BRZ ordered. EDMS EDMS 14:03 14:02 SALICYLATE+C.LAB.BRZ ordered. EDMS EDMS 14:03 14:02 Urinalysis+U.LAB.BRZ ordered. EDMS EDMS 14:03 14:02 URINE DRUG SCREEN+UC.LAB.BRZ ordered. EDMS EDMS 14:03 14:03 Ankle Right 3 View+RAD.RAD.BRZ ordered. EDMS EDMS 08/22 18:37 08/21 14:05 The patient presents after having a single isolated seizure, that lasted an cp unknown period of time, cp 08/22 18:37 08/21 14:05 Character of seizure(s): Loss of consciousness: the patient experienced cp loss of consciousness, Motor activity: generalized, shaking all over, Incontinence: none, cp
[2024-08-21 18:50] VITALS: TEMP 97.8
[2024-08-21 18:55] VITALS: BP 122/74; O2SAT 98
[2024-08-21] MEDS ORDERED: carBAMazepine 200 MG TAB ONE (21:18)
--- NOTE | 2024-08-23 11:05 | EKG ---
Test Date: 2024-08-21 Test Time: 13:10:05 Nematology Teacher: ALP MEASUREMENT RESULTS: Intervals: Rate: 81 KS: 158 QRSD: 86 QT: 372 QTc: 432 Sutter: P: 13 KS: 158 QRS: 36 T: 19 INTERPRETIVE STATEMENTS: Normal sinus rhythm T wave abnormality, consider anterior ischemia Abnormal ECG Compared to ECG 09/26/2023 17:10:31 T-wave abnormality now present Possible ischemia now present Sinus tachycardia no longer present Myocardial infarct finding no longer present Electronically Signed On 08-23-24 10:59:33 CDT by Oliver Murphy
== END 2024-08-21 18:45 | disposition home or self-care (01) ==
LOC: ER 13:31
DX: G40.89 Other seizures (principal); M25.571 Pain in right ankle and joints of right foot; Z96.82 Presence of neurostimulator
CPT/HCPCS: 96361; 93005; 85025; 81001; 80048; 36415; 81025; 85610; 80076; 85730; 80307; 73610; 51702; 96360; 99285; 80143; 80179; 82077; J7030

== ENCOUNTER 2024-08-21 20:49 | Emergency (ER) | payer OTHER ==
--- NOTE | 2024-08-21 22:03 | EDPHYS ---
Physician Documentation [facility] Name: Heather Hope Age: 33 yrs Sex: Female : 1990 Arrival Date: 08/21/2024 Time: 20:49 Bed 17 Private MD: ED Physician Andres Sandoval HPI: 08/21 22:11 This 33 yrs old Female presents to ER via Ambulatory with complaints of Probable rt Seizure. 22:11 Patient was discharged from the ED about 3 hours ago after having a reported seizure. rt Patient went to a store, reportedly had another seizure, has not yet taken her antiepileptic medicines for today. The patient denies other acute complaints at this time, symptoms are moderate in severity, no other aggravating or alleviating factors.. Historical: - Allergies: 21:06 No Known Drug Allergies; jb4 - Home Meds: 21:06 Tegretol 200 mg Oral tablet 2 tabs 2 times per day [Active]; clobazam 10 mg Oral tablet jb4 2 times per day [Active]; - PMHx: 21:06 Anemia; Depression; Seizures; jb4 - PSHx: 21:06 stimulator of brain (2019); jb4 - Immunization history:: Adult Immunizations up to date. - Infectious Disease History:: Denies. - Family history:: not pertinent. - Social history:: Smoking status: unknown. ROS: 22:11 Constitutional: Negative for fever, chills, and weight loss, Cardiovascular: Negative rt for chest pain, palpitations, and edema, Respiratory: Negative for shortness of breath, cough, wheezing, and pleuritic chest pain, Abdomen/GI: Negative for abdominal pain, nausea, vomiting, diarrhea, and constipation, Skin: Negative for injury, rash, and discoloration, Psych: Negative for depression, anxiety, suicide ideation, homicidal ideation, and hallucinations, 22:11 Neuro: Positive for seizure activity, Negative for altered mental status, Exam: 22:11 Constitutional: This is a well developed, well nourished patient who is awake, alert, rt and in no acute distress. Head/Face: Normocephalic, atraumatic. Chest/axilla: Normal chest wall appearance and motion. Nontender with no deformity. No lesions are appreciated. Cardiovascular: Regular rate and rhythm with a normal S1 and S2. No gallops, murmurs, or rubs. Normal PMI, no JVD. No pulse deficits. Respiratory: Lungs have equal breath sounds bilaterally, clear to auscultation and percussion. No rales, rhonchi or wheezes noted. No increased work of breathing, no retractions or nasal flaring. Abdomen/GI: Soft, non-tender, with normal bowel sounds. No distension or tympany. No guarding or rebound. No evidence of tenderness throughout. Skin: Warm, dry with normal turgor. Normal color with no rashes, no lesions, and no evidence of cellulitis. MS/ Extremity: Pulses equal, no cyanosis. Neurovascular intact. Full, normal range of motion. Neuro: Awake and alert, GCS 15, oriented to person, place, time, and situation. Cranial nerves II-XII grossly intact. Motor strength 5/5 in all extremities. Sensory grossly intact. Cerebellar exam normal. Normal gait. Vital Signs: 21:00 BP 121 / 69; Pulse 91; Resp 17 S; Pulse Ox 98% on R/A; ha1 21:04 BP 134 / 79; Pulse 89; Resp 16; Temp 98.6(O); Pulse Ox 97% on R/A; Weight 73.94 kg; jb4 Height 5 ft. 3 in. ; 22:11 BP 120 / 78; Pulse 88; Resp 17 S; Pulse Ox 99% on R/A; ha1 21:04 Body Mass Index 28.87 (73.94 kg, 160.02 cm) jb4 Concepcion Coma Score: 21:06 Eye Response: spontaneous(4). Motor Response: obeys commands(6). Verbal Response: jb4 oriented(5). Total: 15. MDM: 20:56 Medical Screening Exam initiated rt 22:11 Differential diagnosis: Seizure disorder, subtherapeutic antiepileptic. Data reviewed: rt vital signs, nurses notes. Test considered but Not performed: Other Details Patient had recent labs drawn less than 5 hours ago, do not believe that repeat labs are indicated. Care significantly affected by the following chronic conditions: Seizure disorder. Counseling: I had a detailed discussion with the patient and/or guardian regarding the historical points, exam findings, and any diagnostic results supporting the discharge/admit diagnosis, the need for outpatient follow up, to return to the emergency department if symptoms worsen or persist or if there are any questions or concerns that arise at home. Response to treatment: the patient's symptoms have markedly improved after treatment. Administered Medications: 21:23 Drug: carBAMazepine PO 200 mg PO once Route: PO; ha1 22:27 Follow up: Response: No adverse reaction; Marked relief of symptoms ha1 Disposition Summary: 08/21/24 22:02 Discharge Ordered Notes: Location: Home rt Problem: an acute exacerbation rt Symptoms: have improved rt Condition: Stable rt Diagnosis - Other seizures rt Followup: rt - With: Private Physician - When: 2 - 3 days - Reason: Discharge Instructions: - Discharge Summary Sheet rt - Seizure, Adult rt Forms: - Medication Reconciliation Form rt - Antibiotic Education rt - Prescription Opioid Use rt - Patient Portal Instructions rt - Leadership Thank You Letter rt Signatures: oDn Ag RN RN jb4 Alyson Alexander RN RN ha1 Andres Sandoval MD MD rt
--- NOTE | 2024-08-21 22:03 | ER ---
Nurse's Notes [facility] Name: Heather Hope Age: 33 yrs Sex: Female : 1990 Arrival Date: 08/21/2024 Time: 20:49 Bed 17 Private MD: Diagnosis: Other seizures Presentation: 08/21 21:04 Chief complaint: Patient states: My friend told me I had a seizure that lasted 5 jb4 minutes so I came back. Coronavirus screen: At this time, the client does not indicate any symptoms associated with coronavirus-19. Ebola Screen: No symptoms or risks identified at this time. Initial Sepsis Screen: Does the patient meet any 2 criteria? No. Patient's initial sepsis screen is negative. Does the patient have a suspected source of infection? No. Patient's initial sepsis screen is negative. Risk Assessment: Do you want to hurt yourself or someone else? Patient reports no desire to harm self or others. Onset of symptoms was August 21, 2024. Transition of care: patient was not received from another setting of care. 21:04 Method Of Arrival: Ambulatory jb4 21:04 Acuity: DARLYN 3 jb4 Triage Assessment: 21:06 General: Appears in no apparent distress. comfortable, Behavior is calm, cooperative, jb4 appropriate for age. Pain: Complains of pain in neck Pain does not radiate. Pain currently is 5 out of 10 on a pain scale. Neuro: Level of Consciousness is awake, alert, obeys commands, Oriented to person, place, time, situation. Cardiovascular: Patient's skin is warm and dry. Respiratory: Airway is patent Respiratory effort is even, unlabored, Respiratory pattern is regular, symmetrical. Derm: Skin is intact, Skin is pink, warm \T\ dry. Musculoskeletal: Circulation, motion, and sensation intact. Range of motion: intact in all extremities. Historical: - Allergies: 21:06 No Known Drug Allergies; jb4 - Home Meds: 21:06 Tegretol 200 mg Oral tablet 2 tabs 2 times per day [Active]; clobazam 10 mg Oral tablet jb4 2 times per day [Active]; - PMHx: 21:06 Anemia; Depression; Seizures; jb4 - PSHx: 21:06 stimulator of brain (2019); jb4 - Immunization history:: Adult Immunizations up to date. - Infectious Disease History:: Denies. - Family history:: not pertinent. - Social history:: Smoking status: unknown. Screenin:13 [facility] ED Fall Risk Assessment (Adult) History of falling in the last 3 months, ha1 including since admission Yes- single mechanical fall (1 pt) Confusion or Disorientation No (0 pts) Intoxicated or Sedated No (0 pts) Impaired Gait No (0 pts) Mobility Assist Device Used No (0 pt) Altered Elimination No (0 pt) Score/Fall Risk Level 0 - 2 = Low Risk Oriented to surroundings, Maintained a safe environment, Educated pt \T\ family on fall prevention, incl call for assistance when getting out of bed, Hourly rounding (assess needs \T\ fall precautionary measures) done. Abuse screen: Denies threats or abuse. Denies injuries from another. Nutritional screening: No deficits noted. Tuberculosis screening: No symptoms or risk factors identified. Assessment: 21:00 General: Appears comfortable, Behavior is calm, cooperative. Pain: Denies pain. Neuro: ha1 Level of Consciousness is awake, alert, obeys commands, Oriented to person, place, time, situation, Reports SEIZURE ACTIVITY AT HOME . Cardiovascular: Capillary refill < 3 seconds Patient's skin is warm and dry. Respiratory: Airway is patent Respiratory effort is even, unlabored, Respiratory pattern is regular, symmetrical. GI: No signs and/or symptoms were reported involving the gastrointestinal system. Abdomen is round non-distended. : No signs and/or symptoms were reported regarding the genitourinary system. Derm: Skin is pink, warm \T\ dry. 22:11 Reassessment: Patient and/or family updated on plan of care and expected duration. Pain ha1 level reassessed. Patient is alert, oriented x 3, equal unlabored respirations, skin warm/dry/pink. Patient denies pain at this time. Vital Signs: 21:00 BP 121 / 69; Pulse 91; Resp 17 S; Pulse Ox 98% on R/A; ha1 21:04 BP 134 / 79; Pulse 89; Resp 16; Temp 98.6(O); Pulse Ox 97% on R/A; Weight 73.94 kg; jb4 Height 5 ft. 3 in. ; 22:11 BP 120 / 78; Pulse 88; Resp 17 S; Pulse Ox 99% on R/A; ha1 21:04 Body Mass Index 28.87 (73.94 kg, 160.02 cm) jb4 Thomas Coma Score: 21:06 Eye Response: spontaneous(4). Motor Response: obeys commands(6). Verbal Response: jb4 oriented(5). Total: 15. ED Course: 20:49 Patient has correct armband on for positive identification. Placed in gown. Bed in low ha1 position. Call light in reach. Side rails up X2. Seizure precautions initiated. 20:51 Patient arrived in ED. im 20:53 Andres Sandoval MD is Attending Physician. rt 21:05 Triage completed. jb4 21:06 Arm band placed on right wrist. jb4 21:15 Alyson Alexander RN is Primary Nurse. ha1 22:18 No provider procedures requiring assistance completed. Patient did not have IV access ha1 during this emergency room visit. 22:23 Provided Education on: FOLLOW [employer] . ha1 Administered Medications: 21:23 Drug: carBAMazepine PO 200 mg PO once Route: PO; ha1 22:27 Follow up: Response: No adverse reaction; Marked relief of symptoms ha1 Medication: 22:24 VIS not applicable for this client. ha1 Outcome: 22:02 Discharge ordered by . rt 22:19 Discharged to home ambulatory, ha1 22:19 Condition: stable 22:19 Discharge instructions given to patient, Instructed on discharge instructions, follow up and referral plans. Demonstrated understanding of instructions, follow-up care, 22:27 Patient left the ED. ha1 Signatures: Don Ag RN RN jb4 Alyson Alexander RN RN ha1 Andres Sandoval MD MD rt Vianey Peck
[2024-08-21 23:03] VITALS: TEMP 98.6
[2024-08-21 23:04] VITALS: BP 120/78; O2SAT 99
== END 2024-08-21 22:27 | disposition home or self-care (01) ==
LOC: ER 20:49
DX: G40.89 Other seizures (principal)
CPT/HCPCS: 99283

== ENCOUNTER 2024-08-22 08:26 | Emergency (ER) | payer OTHER ==
[2024-08-22 09:04] LABS: Absolute Basophils 0.1 K/uL (0-0.5); Absolute Eosinophils 0.1 K/uL (0-0.5); Absolute Lymphocytes (CBC) 1.3 K/uL (0.7-4.9); Absolute Monocytes 0.4 K/uL (0.1-1.3); Absolute Neutrophil 4.3 K/uL (1.8-8.0); Eosinophils % 1.3 % (0-4.4); Hematocrit 41.1 % (36.0-45.0); Hemoglobin 13.9 g/dL (12.0-15.0); Lymphocytes % 21.8 % (15.3-44.8); MCH 30.7 pg (27.0-35.0); MCHC 33.9 g/dL (32.0-36.0); MCV 90.6 fL (80-100); MPV 7.8 fL (7.6-11.3); Monocytes % 6.2 % (3.3-12.3); Neutrophils % 69.7 % (41.7-73.7); Nucleated Red Blood Cells % 0.1 % (0-0); Platelets 257 thou/uL (152-406); RBC Red Blood Cell Count 4.53 M/uL (3.86-4.86); Red Cell Distribution Width 13.4 % (12.1-15.2)
[2024-08-22] MEDS ORDERED: carBAMazepine 200 MG TAB ONE (09:13)
[2024-08-22 09:23] LABS: Anion Gap 8.6 mEq/L (5.0-15.0); Potassium 3.6 mEq/L (3.5-5.1)
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
[2024-08-22 11:39] VITALS: TEMP 98.6
[2024-08-22 11:40] VITALS: BP 132/83; O2SAT 98
== END 2024-08-22 11:34 | disposition home or self-care (01) ==
LOC: ER 08:26
DX: G40.509 Epileptic seizures related to external causes, not intractable, without status epilepticus (principal); V49.9XXA Car occupant (driver) (passenger) injured in unspecified traffic accident, initial encounter; Z96.82 Presence of neurostimulator
CPT/HCPCS: 36415; 70450; 71045; 80048; 82077; 85025; 99284

== ENCOUNTER 2024-08-23 16:17 | Emergency (ER) | payer OTHER ==
[2024-08-23] MEDS ORDERED: NA CHLORIDE 0.9% 100 ML ONE (16:39)
[2024-08-23] MEDS ORDERED: LEVETIRACETAM 500 MG/5 ML VIAL IV ONE (16:39)
[2024-08-23 17:09] LABS: Absolute Eosinophils 0.1 K/uL (0-0.5); Absolute Lymphocytes (CBC) 1.2 K/uL (0.7-4.9); Absolute Monocytes 0.4 K/uL (0.1-1.3); Absolute Neutrophil 4.9 K/uL (1.8-8.0); Basophils % 0.7 % (0-1.3); Eosinophils % 1.1 % (0-4.4); Hematocrit 43.2 % (36.0-45.0); Hemoglobin 14.3 g/dL (12.0-15.0); Lymphocytes % 18.7 % (15.3-44.8); MCH 30.4 pg (27.0-35.0); MCHC 33.2 g/dL (32.0-36.0); MCV 91.6 fL (80-100); MPV 7.6 fL (7.6-11.3); Neutrophils % 73.5 % (41.7-73.7); Nucleated Red Blood Cells % 0.3 % (0-0); Platelets 257 thou/uL (152-406); RBC Red Blood Cell Count 4.71 M/uL (3.86-4.86); Red Cell Distribution Width 13.5 % (12.1-15.2)
[2024-08-23 17:27] LABS: Specific Gravity > 1.030 (1.005-1.030)
[2024-08-23 17:28] LABS: Specific Gravity > 1.030 (1.005-1.030); Sqamous Epithelial <5 /HPF (None Seen); Urine Bacteria None Seen /HPF (<20); Urine Bilirubin NEGATIVE (Negative); Urine Blood 1+ (Negative); Urine Clarity Turbid (Clear); Urine Color Yellow (Yellow); Urine Crystals Unidentified Few /HPF (None Seen); Urine Culture Reflex Order NOT NEEDED; Urine Glucose NEGATIVE (Negative); Urine Ketones TRACE (Negative); Urine Microscopic Reflex YN ORDER UMIC; Urine Mucus 3+ /HPF (None Seen); Urine Nitrite NEGATIVE (Negative); Urine Protein 1+ (Negative); Urine RBC <5 /HPF (None Seen); Urine Urobilinogen 1+ (Normal); Urine WBC <5 /HPF (<5); Urine WBC Clump Rare /HPF (None Seen)
[2024-08-23 17:32] LABS: Albumin 3.8 g/dL (3.4-5.0); Anion Gap 7.9 mEq/L (5.0-15.0); Bilirubin Total 0.2 mg/dL (0.2-1.0); Globulin 3.8 g/dL (2.3-3.5); Potassium 3.9 mEq/L (3.5-5.1); Protein, Total 7.6 g/dL (6.4-8.2)
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
--- NOTE | 2024-08-23 18:59 | EDPHYS ---
Physician Documentation [facility] Name: Heather Hope Age: 33 yrs Sex: Female : 1990 Arrival Date: 08/23/2024 Time: 16:17 Bed 16 Private MD: ED Physician Josué Cummings HPI: 08/23 18:50 This 33 yrs old Female presents to ER via EMS with complaints of Seizure. jj9 18:50 33-year-old female comes to the emergency department for evaluation of seizure jj9 disorder. According to EMS the patient called herself explaining that she has been having multiple seizure, when EMS arrived the patient was sitting outside awaiting for them . She was seen a day ago for similar symptoms. Yesterday's workup including CT scan of the head was negative. Patient was eventually discharged home.. 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 - Infectious Disease History:: Denies. - Social history:: Smoking status: unknown. ROS: 18:53 Unable to obtain ROS due to post ictal, jj9 Exam: 18:54 Constitutional: post ictal Head/Face: Normocephalic, atraumatic. Eyes: Pupils equal jj9 round and reactive to light. Lids and lashes normal. Conjunctiva and sclera are non-icteric and not injected. Cornea within normal limits. Periorbital areas with no swelling, redness, or edema. ENT: Nares patent. No nasal discharge, no septal abnormalities noted. Tympanic membranes are normal and external auditory canals are clear. Oropharynx with no redness, swelling, or masses, exudates, or evidence of obstruction, uvula midline. Mucous membranes moist. Neck: Trachea midline, no thyromegaly or masses palpated, and no cervical lymphadenopathy. Supple, full range of motion without nuchal rigidity, or vertebral point tenderness. No Meningismus. Chest/axilla: Normal chest wall appearance and motion. Nontender with no deformity. No lesions are appreciated. Cardiovascular: Regular rate and rhythm with a normal S1 and S2. No gallops, murmurs, or rubs. Normal PMI, no JVD. No pulse deficits. Respiratory: Lungs have equal breath sounds bilaterally, clear to auscultation and percussion. No rales, rhonchi or wheezes noted. No increased work of breathing, no retractions or nasal flaring. Abdomen/GI: Soft, non-tender, with normal bowel sounds. No distension or tympany. No guarding or rebound. No evidence of tenderness throughout. Skin: Warm, dry with normal turgor. Normal color with no rashes, no lesions, and no evidence of cellulitis. MS/ Extremity: Pulses equal, no cyanosis. Neurovascular intact. Full, normal range of motion. Neuro: post ictal but slowly responding Vital Signs: 16:34 BP 145 / 98; Pulse 89; Resp 16 S; Pulse Ox 99% on R/A; Pain 0/10; kc6 17:27 BP 144 / 98; Pulse 94; Resp 19 S; Pulse Ox 97% on R/A; kc6 18:32 BP 128 / 88; Pulse 79; Resp 14 S; Pulse Ox 99% on R/A; kc6 19:16 BP 128 / 85; Pulse 82; Resp 16; Temp 98.3; Pulse Ox 99% on R/A; Pain 0/10; kd4 20:46 BP 118 / 72; Pulse 80; Resp 18; Temp 98.1; Pulse Ox 99% on R/A; Pain 0/10; kd4 16:34 Pain Scale: Adult kc6 19:16 Pain Scale: Adult kd4 20:46 Pain Scale: Adult kd4 Thomas Coma Score: 16:36 Eye Response: none(1). Motor Response: withdraws from pain(4). Verbal Response: kc6 none(1). Total: 6. 20:46 Eye Response: spontaneous(4). Motor Response: obeys commands(6). Verbal Response: kd4 oriented(5). Total: 15. MDM: 16:22 Medical Screening Exam initiated 18:55 Differential diagnosis: seizure. j9 18:55 Care significantly affected by the following chronic conditions: seizures . Response to jj9 treatment: the patient's symptoms have markedly improved after treatment. ED course: 33-year-old female with history of recurrent seizures comes to the emergency department via EMS for evaluation of seizure today. Upon arrival the patient appeared postictal. Labs and Keppra were given in the emergency department patient return to her baseline now she is awake alert oriented in no obvious distress is no neurological findings on exam. This is likely a recurrent seizure. The patient was advised to continue her medication follow with neurology and return to the emergency department worsening of symptoms or of any other problems. She understands and agrees with the plan.. 08/23 16:24 Order name: CBC with Diff; Complete Time: 18:57 [facility] 08/23 16:24 Order name: CMP; Complete Time: 18:57 [facility] 08/23 16:24 Order name: Test, Urine; Complete Time: 18:57 [facility] 08/23 16:24 Order name: Urinalysis w/ reflexes; Complete Time: 18:57 [facility] 08/23 16:24 Order name: IV Saline Lock; Complete Time: 17:18 [facility] 08/23 16:24 Order name: Labs collected and sent; Complete Time: 17:18 Administered Medications: 17:18 Drug: Keppra IV 1000 mg IV at bolus once Route: IV; Rate: bolus; Site: right forearm; kc6 17:28 Follow up: Response: No adverse reaction; IV Status: Completed infusion; IV Intake: kc6 100ml Disposition Summary: 08/23/24 18:58 Discharge Ordered Notes: Location: Home jj9 Problem: chronic jj9 Condition: Stable jj9 Diagnosis - Other seizures jj9 Followup: jj9 - With: Srinivas German MD - When: 24 Hours - Reason: Discharge Instructions: - Discharge Summary Sheet jj9 - Seizure, Adult jj9 Forms: - Medication Reconciliation Form jj9 - Antibiotic Education jj9 - Prescription Opioid Use jj9 - Patient Portal Instructions jj9 - Leadership Thank You Letter jj9 Signatures: Dispatcher [employer] Isadora Whitman RN RN kc6 Josué Cummings MD MD jj9 Corrections: (The following items were deleted from the chart) 16:24 16:24 CBC+H.LAB.BRZ ordered. EDMS EDMS 16:24 16:24 COMPREHENSIVE METABOLIC PANEL+C.LAB.BRZ ordered. EDMS EDMS 16:24 16:24 Test, Urine+UC.LAB.BRZ ordered. EDMS EDMS 16:24 16:24 Urinalysis+U.LAB.BRZ ordered. EDMS EDMS
[2024-08-23 21:49] VITALS: O2SAT 99
[2024-08-23 21:52] VITALS: BP 118/72; TEMP 98.1
== END 2024-08-23 20:53 | disposition home or self-care (01) ==
LOC: ER 16:17
DX: G40.89 Other seizures (principal); Z96.82 Presence of neurostimulator
CPT/HCPCS: 85025; 81001; 36415; 81025; 80053; 51702; 96374; 99285; J1953

== ENCOUNTER 2024-08-30 19:47 | Emergency (ER) | payer OTHER ==
[2024-08-30] MEDS ORDERED: LEVETIRACETAM 500 MG/5 ML VIAL IV ONE (21:12)
[2024-08-30] MEDS ORDERED: NA CHLORIDE 0.9% 1,000 ML ONE (21:13)
[2024-08-30 22:18] LABS: Absolute Basophils 0.1 K/uL (0-0.5); Absolute Lymphocytes (CBC) 1.4 K/uL (0.7-4.9); Absolute Monocytes 0.4 K/uL (0.1-1.3); Absolute Neutrophil 5.3 K/uL (1.8-8.0); Eosinophils % 0.3 % (0-4.4); Hematocrit 36.6 % (36.0-45.0); Hemoglobin 12.6 g/dL (12.0-15.0); Lymphocytes % 19.2 % (15.3-44.8); MCH 31.1 pg (27.0-35.0); MCHC 34.4 g/dL (32.0-36.0); MCV 90.6 fL (80-100); Monocytes % 5.9 % (3.3-12.3); Neutrophils % 73.6 % (41.7-73.7); Platelets 213 thou/uL (152-406); RBC Red Blood Cell Count 4.04 M/uL (3.86-4.86); Red Cell Distribution Width 13.1 % (12.1-15.2)
[2024-08-30 22:21] LABS: Specific Gravity 1.016 (1.005-1.030)
[2024-08-30 22:29] LABS: Barbiturates NEGATIVE (NEGATIVE); Benzodiazepines NEGATIVE (NEGATIVE); Cocaine NEGATIVE (NEGATIVE); METHAMPHETAM NEGATIVE (NEGATIVE); Methadone NEGATIVE (NEGATIVE); Opiates NEGATIVE (NEGATIVE); Phencyclidine NEGATIVE (NEGATIVE); THC Cannibis NEGATIVE (NEGATIVE)
[2024-08-30 22:35] LABS: Albumin 3.8 g/dL (3.4-5.0); Albumin/Globulin Ratio 1.2 (1.1-1.8); Anion Gap 10.3 mEq/L (5.0-15.0); Bilirubin Total 0.3 mg/dL (0.2-1.0); Globulin 3.3 g/dL (2.3-3.5); Potassium 3.3 mEq/L (3.5-5.1); Protein, Total 7.1 g/dL (6.4-8.2)
--- NOTE | 2024-08-30 23:40 | EDPHYS ---
Physician Documentation [facility] Name: Heather Hope Age: 33 yrs Sex: Female : 1990 Arrival Date: 08/30/2024 Time: 19:47 Bed 13 Private MD: ED Physician Clay Marc HPI: 08/30 20:26 This 33 yrs old Female presents to ER via Ambulatory with complaints of sp4 Seizure. 08/31 20:39 33-year-old female complains of seizure. Patient has history of recurrent sp4 seizures patient takes Tegretol 200 mg twice a day. At this time no additional antiepileptic. . 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 - Infectious Disease History:: Denies. - Social history:: Smoking status: Patient denies any tobacco usage or history of. - Family history:: not pertinent. ROS: 08/31 20:39 Constitutional: Negative for fever, chills, and weight loss, positive for recurrent sp4 seizures at home patient reported up to 4 seizures this evening All other systems are negative, Exam: 20:39 Constitutional: This is a well developed, well nourished patient who is awake, alert, sp4 and in no acute distress. Head/Face: Normocephalic, atraumatic. Eyes: Pupils equal round and reactive to light, extra-ocular motions intact. Lids and lashes normal. Conjunctiva and sclera are not injected. Cornea within normal limits. Periorbital areas with no swelling, redness, or edema. ENT: Nares patent. No nasal discharge, no septal abnormalities noted. Tympanic membranes are normal and external auditory canals are clear. Oropharynx with no redness, swelling, or masses, exudates, or evidence of obstruction, uvula midline. Mucous membranes moist. Neck: Trachea midline, no thyromegaly or masses palpated, and no cervical lymphadenopathy. Supple, full range of motion without nuchal rigidity, or vertebral point tenderness. Chest/axilla: Normal chest wall appearance and motion. Nontender with no deformity. No lesions are appreciated. Cardiovascular: Regular rate and rhythm with a normal S1 and S2. No gallops, murmurs, or rubs. Normal PMI, no JVD. No pulse deficits. Respiratory: Lungs have equal breath sounds bilaterally, clear to auscultation and percussion. No rales, rhonchi or wheezes noted. No increased work of breathing, no retractions or nasal flaring. Abdomen/GI: Soft, with normal bowel sounds. No distension or tympany. No guarding or rebound. No evidence of tenderness throughout. Back: No spinal tenderness. No costovertebral tenderness. Skin: Warm, dry with normal turgor. Normal color with no rashes, no lesions, and no evidence of cellulitis. MS/ Extremity: Pulses equal, no cyanosis. Neurovascular intact. Full, normal range of motion. Neuro: Awake and alert, GCS 15, oriented to person, place, time, and situation. Cranial nerves II-XII grossly intact. Motor strength 5/5 in all extremities. Sensory grossly intact. Psych: Awake, alert, with orientation to person, place and time. Behavior, mood, and affect are within normal limits Vital Signs: 08/30 20:00 BP 154 / 105; Pulse 118; Resp 20; Pulse Ox 98% ; Weight 72.57 kg; Height 5 ft. 3 in. ; vc1 20:40 BP 141 / 91; Pulse 100; Resp 20; Temp 98.6; Pulse Ox 97% on R/A; MAP 106 mmHg; aa10 22:45 BP 127 / 89; Pulse 81; Resp 20; Temp 98.6; Pulse Ox 99% on R/A; MAP 100 mmHg; aa10 23:44 BP 122 / 84; Pulse 80; Resp 20; Temp 98; Pulse Ox 99% on R/A; MAP 99 mmHg; aa10 20:00 Body Mass Index 28.34 (72.57 kg, 160.02 cm) vc1 Thomas Coma Score: 20:03 Eye Response: spontaneous(4). Motor Response: obeys commands(6). Verbal Response: vc1 oriented(5). Total: 15. 08/31 20:39 Eye Response: spontaneous(4). Motor Response: obeys commands(6). Verbal Response: sp4 oriented(5). Total: 15. MDM: 08/30 20:33 Medical Screening Exam initiated sp4 08/31 20:39 Differential diagnosis: cerebral vascular accident, drug overdose, cardiac arrhythmia, sp4 seizure, TIA. Data reviewed: vital signs, nurses notes, EMS record, lab test result(s). Consideration of Admission/Observation Escalation of care including admission/observation considered. ED course: No seizures in the emergency room. Patient was given IV Keppra loading dose. Patient was informed that she will be prescribed Keppra 750 mg p.o. twice daily. Advised to follow-up with neurologist in [place] or here in [place].. 08/30 20:49 Order name: Urine Drug Screen; Complete Time: 23:32 [facility] 08/30 20:49 Order name: Tegretol Level; Complete Time: 23:32 4 08/30 20:49 Order name: CBC with Diff; Complete Time: 23:32 4 08/30 20:49 Order name: CMP; Complete Time: 23:32 4 08/30 20:49 Order name: Test, Urine; Complete Time: 23:32 4 08/30 20:49 Order name: IV Saline Lock; Complete Time: 21:51 4 08/30 20:49 Order name: Labs collected and sent; Complete Time: 21:51 sp4 Administered Medications: 08/30 21:51 Drug: NS 0.9% IV 1000 ml IV at 1 bolus Per protocol; to be given as a bolus over 60 aa10 minutes Route: IV; Rate: 1 bolus; Site: left forearm; 23:46 Follow up: IV Status: Completed infusion; IV Intake: 1000ml aa10 23:46 Follow up: Response: No adverse reaction; Marked relief of symptoms aa10 21:51 Drug: Keppra IV 1000 mg IV at calculated rate once Route: IV; Rate: calculated rate; aa10 Site: left forearm; 23:45 Follow up: IV Status: Completed infusion; IV Intake: 250ml aa10 23:46 Follow up: Response: No adverse reaction; Marked relief of symptoms aa10 Disposition Summary: 08/30/24 23:39 Discharge Ordered Notes: Location: Home sp4 Problem: new sp4 Symptoms: have improved sp4 Condition: Stable sp4 Diagnosis - Other seizures sp4 - Acute breakthrough seizure sp4 Followup: sp4 - With: Srinivas German MD - When: 7 - 10 days - Reason: Recheck today's complaints Discharge Instructions: - Discharge Summary Sheet sp4 - Seizure, Adult sp4 Forms: - Patient Portal Instructions sp4 Prescriptions: - Keppra 750 mg Oral tablet - take 1 tablet ORAL route every 12 hours; 180 tablet; Refills: 0, Product sp4 Selection Permitted Signatures: Dispatcher [employer] Larissa Roa RN RN vc1 Clay Marc MD MD sp4 Zia Escobar RN RN aa10
--- NOTE | 2024-08-30 23:40 | ER ---
Nurse's Notes [facility] Name: Heather Hope Age: 33 yrs Sex: Female : 1990 Arrival Date: 08/30/2024 Time: 19:47 Bed 13 Private MD: Diagnosis: Other seizures;Acute breakthrough seizure Presentation: 08/30 20:00 Chief complaint: Parent and/or Guardian states: Her work called and said she had 3 vc1 seizures, then she had one more at home. Coronavirus screen: Client denies travel out of the [place] in the last 14 days. At this time, the client does not indicate any symptoms associated with coronavirus-19. Ebola Screen: Patient negative for fever greater than or equal to 101.5 degrees Fahrenheit, and additional compatible Ebola Virus Disease symptoms Patient denies exposure to infectious person. Patient denies travel to an Ebola-affected area in the 21 days before illness onset. No symptoms or risks identified at this time. Initial Sepsis Screen: Does the patient meet any 2 criteria? HR > 90 bpm. No. Patient's initial sepsis screen is negative. Does the patient have a suspected source of infection?. Risk Assessment: Do you want to hurt yourself or someone else? Patient reports no desire to harm self or others. Onset of symptoms was August 30, 2024. 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 - Infectious Disease History:: Denies. - Social history:: Smoking status: Patient denies any tobacco usage or history of. - Family history:: not pertinent. Screenin:03 Abuse screen: Denies threats or abuse. Nutritional screening: No deficits noted. vc1 Tuberculosis screening: No symptoms or risk factors identified. 20:44 [facility] ED Fall Risk Assessment (Adult) History of falling in the last 3 months, aa10 including since admission No falls in past 3 months (0 pts) Confusion or Disorientation No (0 pts) Intoxicated or Sedated No (0 pts) Impaired Gait No (0 pts) Mobility Assist Device Used No (0 pt) Altered Elimination Yes (1 pt) Score/Fall Risk Level. Assessment: 20:41 General: Appears comfortable, well groomed, well developed, Behavior is calm, aa10 cooperative, appropriate for age, quiet, Smells of Reports feeling ill for 12-24 hours, Denies chills. Pain: Denies pain. Neuro: No deficits noted. Delvalle Agitation-Sedation Scale (RASS): 0 - Alert and Calm Level of Consciousness is awake, alert, obeys commands, post ictal, Oriented to person, place, time, situation, Appropriate for age Blocklayer are equal bilaterally Moves all extremities. Gait is steady, Speech is normal, Facial symmetry appears normal, Pupils are PERRLA, Intact. Cardiovascular: No deficits noted. Capillary refill < 3 seconds. Respiratory: No deficits noted. Airway is patent. 20:42 Reassessment: environment ensured safe and free from hazard, side rails up and padded, aa10 bed in lowest position, and patient in clear view of RN. 22:45 Reassessment: Patient appears in no apparent distress at this time. No changes from aa10 previously documented assessment. Patient and/or family updated on plan of care and expected duration. Pain level reassessed. Patient is alert, oriented x 3, equal unlabored respirations, skin warm/dry/pink. Patient denies pain at this time. 23:43 Reassessment: Patient appears in no apparent distress at this time. No changes from aa10 previously documented assessment. Patient and/or family updated on plan of care and expected duration. Pain level reassessed. Patient is alert, oriented x 3, equal unlabored respirations, skin warm/dry/pink. Patient states feeling better. Vital Signs: 20:00 BP 154 / 105; Pulse 118; Resp 20; Pulse Ox 98% ; Weight 72.57 kg; Height 5 ft. 3 in. ; vc1 20:40 BP 141 / 91; Pulse 100; Resp 20; Temp 98.6; Pulse Ox 97% on R/A; MAP 106 mmHg; aa10 22:45 BP 127 / 89; Pulse 81; Resp 20; Temp 98.6; Pulse Ox 99% on R/A; MAP 100 mmHg; aa10 23:44 BP 122 / 84; Pulse 80; Resp 20; Temp 98; Pulse Ox 99% on R/A; MAP 99 mmHg; aa10 20:00 Body Mass Index 28.34 (72.57 kg, 160.02 cm) vc1 Thomas Coma Score: 20:03 Eye Response: spontaneous(4). Motor Response: obeys commands(6). Verbal Response: vc1 oriented(5). Total: 15. 08/31 20:39 Eye Response: spontaneous(4). Motor Response: obeys commands(6). Verbal Response: sp4 oriented(5). Total: 15. ED Course: 08/30 19:50 Patient arrived in ED. jj6 20:01 Triage completed. vc1 20:03 Arm band placed on right wrist. vc1 20:26 Clay Marc MD is Attending Physician. sp4 20:42 No provider procedures requiring assistance completed. aa10 20:43 Fall risk band placed. Placed in gown. Bed in low position. Call light in reach. Side aa10 rails up X2. Seizure precautions initiated. Provided Education on: ABOUT PLAN OF CARE. 21:51 CBC with Diff Sent. aa10 21:51 CMP Sent. aa10 21:51 Test, Urine Sent. aa10 21:51 Tegretol Level Sent. aa10 21:51 Urine Drug Screen Sent. aa10 23:38 Srinivas German MD is Referral Physician. sp4 23:45 IV discontinued. aa10 Administered Medications: 21:51 Drug: NS 0.9% IV 1000 ml IV at 1 bolus Per protocol; to be given as a bolus over 60 aa10 minutes Route: IV; Rate: 1 bolus; Site: left forearm; 23:46 Follow up: IV Status: Completed infusion; IV Intake: 1000ml aa10 23:46 Follow up: Response: No adverse reaction; Marked relief of symptoms aa10 21:51 Drug: Keppra IV 1000 mg IV at calculated rate once Route: IV; Rate: calculated rate; aa10 Site: left forearm; 23:45 Follow up: IV Status: Completed infusion; IV Intake: 250ml aa10 23:46 Follow up: Response: No adverse reaction; Marked relief of symptoms aa10 Medication: 20:43 VIS not applicable for this client. aa10 Intake: 23:45 IV: 250ml; Total: 250ml. aa10 23:46 IV: 1000ml; Total: 1250ml. aa10 Outcome: 23:39 Discharge ordered by . spSergey 23:44 Discharged to home ambulatory, aa10 23:44 Condition: good 23:44 Discharge instructions given to patient, Instructed on discharge instructions, Demonstrated understanding of instructions, Prescriptions given X 1, 23:56 Patient left the ED. aa10 Signatures: Swathi [email or web address] Larissa Burns RN RN vc1 Clay Marc MD MD sp4 Zia Escobar RN RN aa10
[2024-08-31 07:04] VITALS: O2SAT 99
[2024-08-31 07:08] VITALS: BP 122/84; TEMP 98
== END 2024-08-30 23:56 | disposition home or self-care (01) ==
LOC: ER 19:47
DX: G40.909 Epilepsy, unspecified, not intractable, without status epilepticus (principal); Z96.82 Presence of neurostimulator
CPT/HCPCS: 96365; 85025; 36415; 80156; 81025; 80053; 80307; 99284; 96366; J1953; J7030

== ENCOUNTER 2024-09-24 19:33 | Emergency (ER) | payer OTHER ==
[2024-09-24] MEDS ORDERED: NA CHLORIDE 0.9% 1,000 ML ONE (20:25)
[2024-09-24 21:14] LABS: ALT/SGPT 18 U/L (13-56); Albumin 4.3 g/dL (3.4-5.0); Albumin/Globulin Ratio 1.2 (1.1-1.8); Alkaline Phosphatase 75 U/L (45-117); BUN Blood Urea Nitrogen 7 mg/dL (7-18); Bicarbonate 24 mEq/L (21-32); Bilirubin Total 0.3 mg/dL (0.2-1.0); Globulin 3.6 g/dL (2.3-3.5); Glomerular Filtration Rate 120 ml/min (=/>90); Glucose Level 100 mg/dL (74-106); Protein, Total 7.9 g/dL (6.4-8.2); Sodium Level 135 mEq/L (136-145)
[2024-09-24 21:20] LABS: Absolute Basophils 0.1 K/uL (0-0.5); Absolute Eosinophils 0.1 K/uL (0-0.5); Absolute Lymphocytes (CBC) 1.6 K/uL (0.7-4.9); Absolute Monocytes 0.5 K/uL (0.1-1.3); Absolute Neutrophil 4.8 K/uL (1.8-8.0); Basophils % 0.9 % (0-1.3); Eosinophils % 0.9 % (0-4.4); Hematocrit 33.3 % (36.0-45.0); Hemoglobin 11.6 g/dL (12.0-15.0); Lymphocytes % 22.7 % (15.3-44.8); MCH 31.1 pg (27.0-35.0); MCHC 34.8 g/dL (32.0-36.0); MCV 89.5 fL (80-100); MPV 8.1 fL (7.6-11.3); Monocytes % 6.6 % (3.3-12.3); Neutrophils % 68.9 % (41.7-73.7); Nucleated Red Blood Cells % 0.1 % (0-0); Platelets 236 thou/uL (152-406); RBC Red Blood Cell Count 3.72 M/uL (3.86-4.86); Red Cell Distribution Width 13.3 % (12.1-15.2)
[2024-09-24 21:26] LABS: Anion Gap 10.2 mEq/L (5.0-15.0)
[2024-09-24 21:27] LABS: AST/SGOT 18 U/L (15-37); Bilirubin Direct < 0.2 mg/dL (0-0.2); Bilirubin Indirect, Calculated 0.1 mg/dL (0.2-0.8); Potassium 4.2 mEq/L (3.5-5.1)
--- NOTE | 2024-09-24 21:48 | EDPHYS ---
Physician Documentation [facility] Name: Heather Hope Age: 33 yrs Sex: Female : 1990 Arrival Date: 09/24/2024 Time: 19:33 Bed 5 Private MD: ED Physician Sumeet Bailey HPI: 09/24 20:10 This 33 yrs old Female presents to ER via EMS with complaints of Seizure. 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 No seizure activity reported for EMS they did say she was possibly in a postictal state. No signs of trauma as reported by them. Normal vital signs for them. Patient denies ongoing headache, neck pain, chest pain, shortness of breath, abdominal pain, nausea, vomiting, diarrhea, rash, bleeding, syncope, or any other signs or symptoms on ROS at this time.. 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 - Infectious Disease History:: Denies. - Social history:: Smoking status: Patient denies any tobacco usage or history of. ROS: 20:13 Constitutional: Negative for fever, chills, and weight loss, Eyes: Negative for injury, sp3 pain, redness, and discharge, Neck: Negative for injury, pain, and swelling, Cardiovascular: Negative for chest pain, palpitations, and edema, Respiratory: Negative for shortness of breath, cough, wheezing, and pleuritic chest pain, Abdomen/GI: Negative for abdominal pain, nausea, vomiting, diarrhea, and constipation, Back: Negative for injury and pain, MS/Extremity: Negative for injury and deformity, Skin: Negative for injury, rash, and discoloration, Allergy/Immunology: Negative for hives, rash, and allergies, Endocrine: Negative for neck swelling, polydipsia, polyuria, polyphagia, and marked weight changes, Hematologic/Lymphatic: Negative for swollen nodes, abnormal bleeding, and unusual bruising, 20:13 All other systems are negative, Exam: 20:13 Constitutional: This is a well developed, well nourished patient who is awake, alert, sp3 and in no acute distress. Head/Face: Normocephalic, atraumatic. Eyes: Pupils equal round and reactive to light, extra-ocular motions intact. Lids and lashes normal. Conjunctiva and sclera are non-icteric and not injected. Cornea within normal limits. Periorbital areas with no swelling, redness, or edema. Neck: Trachea midline, no thyromegaly or masses palpated, and no cervical lymphadenopathy. Supple, full range of motion without nuchal rigidity, or vertebral point tenderness. No Meningismus. Chest/axilla: Normal chest wall appearance and motion. Nontender with no deformity. No lesions are appreciated. Cardiovascular: Regular rate and rhythm with a normal S1 and S2. No gallops, murmurs, or rubs. Normal PMI, no JVD. No pulse deficits. Respiratory: Lungs have equal breath sounds bilaterally, clear to auscultation and percussion. No rales, rhonchi or wheezes noted. No increased work of breathing, no retractions or nasal flaring. Abdomen/GI: Soft, non-tender, with normal bowel sounds. No distension or tympany. No guarding or rebound. No evidence of tenderness throughout. Back: No spinal tenderness. No costovertebral tenderness. Full range of motion. Skin: Warm, dry with normal turgor. Normal color with no rashes, no lesions, and no evidence of cellulitis. MS/ Extremity: Pulses equal, no cyanosis. Neurovascular intact. Full, normal range of motion. Neuro: Awake and alert, GCS 15, oriented to person, place, time, and situation. Cranial nerves II-XII grossly intact. Motor strength 5/5 in all extremities. Sensory grossly intact. Cerebellar exam normal. Normal gait. Psych: Awake, alert, with orientation to person, place and time. Behavior, mood, and affect are within normal limits. Vital Signs: 19:37 BP 148 / 98; Pulse 106; Resp 20; Temp 99.7; Pulse Ox 100% ; Weight 69.4 kg; Height 5 cp4 ft. 3 in. ; Pain 0/10; 22:42 BP 129 / 47; Pulse 87; Resp 18; Pulse Ox 98% ; cp4 19:37 Body Mass Index 27.10 (69.40 kg, 160.02 cm) cp4 19:37 Pain Scale: Adult cp4 Thomas Coma Score: 19:42 Eye Response: spontaneous(4). Motor Response: obeys commands(6). Verbal Response: cp4 oriented(5). Total: 15. MDM: 19:44 Medical Screening Exam initiated sp3 20:13 Data reviewed: vital signs, nurses notes, lab test result(s). ED course: 33-year-old sp3 female with probable breakthrough seizure currently on Tegretol. Patient is she was postictal but now alert and oriented at her baseline state. Initially heart rate at 106 now in the 90s. Remainder vital signs normal. Tegretol level pending as well as routine labs. If workup negative we will safely discharge patient home. I am at highly suspicious of trauma, intracranial hemorrhage, sepsis, shock or any other critical process at this time.. 21:47 ED course: Tegretol level within range. Remainder of labs negative. Vital signs sp3 improved and patient is alert and oriented and we will safely discharge her home with diagnosis of breakthrough seizure.. 09/24 19:44 Order name: Acetaminophen; Complete Time: 21:47 sp3 09/24 19:44 Order name: Basic Metabolic Panel; Complete Time: 21:47 sp3 09/24 19:44 Order name: CBC with Diff; Complete Time: 21:47 3 09/24 19:44 Order name: ETOH Level; Complete Time: 21:47 sp3 09/24 19:44 Order name: Hepatic Function; Complete Time: 21:47 sp3 09/24 19:44 Order name: Salicylate; Complete Time: 21:47 sp3 09/24 19:44 Order name: Tegretol Level; Complete Time: 21:47 sp3 09/24 22:07 Order name: UDS sp3 09/24 19:44 Order name: IV Saline Lock; Complete Time: 20:45 sp3 09/24 19:44 Order name: Labs collected and sent; Complete Time: 20:45 3 09/24 19:44 Order name: Seizure Precautions; Complete Time: 20:01 sp3 Administered Medications: 20:45 Drug: NS 0.9% IV 1000 ml IV at 1 bolus Per protocol; to be given as a bolus over 60 cp4 minutes Route: IV; Rate: 1 bolus; Site: right antecubital; 22:41 Follow up: IV Status: Completed infusion cp4 Disposition Summary: 09/24/24 21:48 Discharge Ordered Notes: Location: Home sp3 Condition: Stable sp3 Diagnosis - Breakthrough seizure sp3 Followup: sp3 - With: Private Physician - When: Upon discharge from the Emergency Department - Reason: Continuance of care Discharge Instructions: - Discharge Summary Sheet sp3 - Seizure, Adult sp3 Forms: - Medication Reconciliation Form sp3 - Antibiotic Education sp3 - Prescription Opioid Use sp3 - Patient Portal Instructions sp3 - Leadership Thank You Letter sp3 Signatures: Dispatcher [employer] EDSumeet Leslie MD MD sp3 Estefania Jon cp4
--- NOTE | 2024-09-24 21:48 | ER ---
Nurse's Notes [facility] Name: Heather Hope Age: 33 yrs Sex: Female : 1990 Arrival Date: 09/24/2024 Time: 19:33 Bed 5 Private MD: Diagnosis: Breakthrough seizure Presentation: 09/24 19:37 Chief complaint: EMS states: seizure at work that was witnessed. States she takes cp4 Tegretol. Coronavirus screen: Client denies travel out of the [place] in the last 14 days. At this time, the client does not indicate any symptoms associated with coronavirus-19. Ebola Screen: Patient negative for fever greater than or equal to 101.5 degrees Fahrenheit, and additional compatible Ebola Virus Disease symptoms Patient denies exposure to infectious person. Patient denies travel to an Ebola-affected area in the 21 days before illness onset. No symptoms or risks identified at this time. Initial Sepsis Screen: Does the patient meet any 2 criteria? HR > 90 bpm. No. Patient's initial sepsis screen is negative. Does the patient have a suspected source of infection? No. Patient's initial sepsis screen is negative. Risk Assessment: Do you want to hurt yourself or someone else? Patient reports no desire to harm self or others. Onset of symptoms was September 24, 2024. 19:37 Method Of Arrival: EMS: [place] [id number] 19:37 Acuity: DARLYN 3 cp4 Triage Assessment: 19:42 General: Appears in no apparent distress. uncomfortable, Behavior is calm, cooperative, cp4 appropriate for age. Pain: Denies pain. EENT: No signs and/or symptoms were reported regarding the EENT system. Neuro: Level of Consciousness is awake, alert, obeys commands, Oriented to person, place, time, situation. Cardiovascular: Patient's skin is warm and dry. Respiratory: Airway is patent Respiratory effort is even, unlabored. GI: No signs and/or symptoms were reported involving the gastrointestinal system. : No signs and/or symptoms were reported regarding the genitourinary system. Derm: No signs and/or symptoms reported regarding the dermatologic system. Musculoskeletal: No signs and/or symptoms reported regarding the musculoskeletal system. 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 - Infectious Disease History:: Denies. - Social history:: Smoking status: Patient denies any tobacco usage or history of. Screenin:59 [facility] ED Fall Risk Assessment (Adult) History of falling in the last 3 months, cp4 including since admission No falls in past 3 months (0 pts) Confusion or Disorientation No (0 pts) Intoxicated or Sedated No (0 pts) Impaired Gait No (0 pts) Mobility Assist Device Used No (0 pt) Altered Elimination No (0 pt) Score/Fall Risk Level 0 - 2 = Low Risk Oriented to surroundings, Maintained a safe environment, Assessed \\T\\ reinforced patient's understanding of fall precautions, Hourly rounding (assess needs \\T\\ fall precautionary measures) done. Abuse screen: Denies threats or abuse. Denies injuries from another. Nutritional screening: No deficits noted. Tuberculosis screening: No symptoms or risk factors identified. Assessment: 19:59 Reassessment: No changes from previously documented assessment. cp4 22:02 Reassessment: DISCHARGE PENDING. PATIENT AWAITING ON TRANSPORTATION. SPOKE TO PATIENT'S ha1 MOTHER STATES" I WILL BE THERE IN 20 MINUTES.". Vital Signs: 19:37 BP 148 / 98; Pulse 106; Resp 20; Temp 99.7; Pulse Ox 100% ; Weight 69.4 kg; Height 5 cp4 ft. 3 in. ; Pain 0/10; 22:42 BP 129 / 47; Pulse 87; Resp 18; Pulse Ox 98% ; cp4 19:37 Body Mass Index 27.10 (69.40 kg, 160.02 cm) cp4 19:37 Pain Scale: Adult cp4 Thomas Coma Score: 19:42 Eye Response: spontaneous(4). Motor Response: obeys commands(6). Verbal Response: cp4 oriented(5). Total: 15. ED Course: 19:35 Patient arrived in ED. cp4 19:37 Estefania Jon is Primary Nurse. cp4 19:38 Sumeet Bailey MD is Attending Physician. sp3 19:42 Triage completed. cp4 19:59 Arm band placed on right wrist. Patient placed in an exam room, on a stretcher. cp4 19:59 Bed in low position. Call light in reach. Side rails up X 1. cp4 19:59 Seizure precautions initiated. cp4 19:59 Provided Education on: Seizures. cp4 19:59 No provider procedures requiring assistance completed. cp4 19:59 intact, bleeding controlled, No redness/swelling at site. Pressure dressing applied. cp4 22:22 UDS Sent. ha1 Administered Medications: 20:45 Drug: NS 0.9% IV 1000 ml IV at 1 bolus Per protocol; to be given as a bolus over 60 cp4 minutes Route: IV; Rate: 1 bolus; Site: right antecubital; 22:41 Follow up: IV Status: Completed infusion cp4 Medication: 19:59 VIS not applicable for this client. cp4 Outcome: 19:59 Discharged to home ambulatory, cp4 19:59 Condition: stable 19:59 Discharge instructions given to patient, Instructed on discharge instructions, follow up and referral plans. Demonstrated understanding of instructions, follow-up care, 21:48 Discharge ordered by . sp3 22:45 Patient left the ED. cp4 Signatures: Sumeet Bailey MD MD sp3 Alyson Alexander, RN RN 1 Estefania Jon cp4
[2024-09-24 22:48] LABS: Barbiturates NEGATIVE (NEGATIVE); Benzodiazepines NEGATIVE (NEGATIVE); Cocaine NEGATIVE (NEGATIVE); METHAMPHETAM NEGATIVE (NEGATIVE); Methadone NEGATIVE (NEGATIVE); Opiates NEGATIVE (NEGATIVE); Phencyclidine NEGATIVE (NEGATIVE); THC Cannibis NEGATIVE (NEGATIVE)
[2024-09-24 23:07] VITALS: TEMP 99.7
[2024-09-24 23:09] VITALS: BP 129/47; O2SAT 98
== END 2024-09-24 22:45 | disposition home or self-care (01) ==
LOC: ER 19:33
DX: G40.909 Epilepsy, unspecified, not intractable, without status epilepticus (principal); Z96.82 Presence of neurostimulator
CPT/HCPCS: 96361; 85025; 80048; 36415; 80156; 80076; 80307; 96360; 99284; 80143; 80179; 82077; J7030

== ENCOUNTER 2025-03-09 17:52 | Emergency (ER) | payer OTHER ==
[2025-03-09] MEDS ORDERED: NA CHLORIDE 0.9% 1,000 ML ONE (18:13)
[2025-03-09 18:43] LABS: Absolute Lymphocytes (CBC) 1.2 K/uL (0.7-4.9); Hematocrit 30.6 % (36.0-45.0); Hemoglobin 9.4 g/dL (12.0-15.0); MCH 20.8 pg (27.0-35.0); MCHC 30.8 g/dL (32.0-36.0); MCV 67.4 fL (80-100); MPV 7.9 fL (7.6-11.3); Nucleated RBC Absolute Count 0.0 (0-0); Nucleated Red Blood Cells % 0.0 % (0-0); RBC Red Blood Cell Count 4.55 M/uL (3.86-4.86); White Blood Count 5.50 thou/uL (4.3-10.9)
[2025-03-09 18:54] LABS: Blood Morphology Comment NOTED (NOT SEEN); Hypochromasia 1+; Microcytosis 1+; PT Prothrombin Time 12.7 SECONDS (10-13.0); PTT, Activated Partial Thromb 26.5 SECONDS (27.2-37.4); Protime INR 1.13; White Blood Cell Scan OK (OK)
[2025-03-09 19:03] LABS: ALT/SGPT 23 U/L (13-56); AST/SGOT 23 U/L (15-37); Albumin 4.1 g/dL (3.4-5.0); Albumin/Globulin Ratio 1.0 (1.1-1.8); Alkaline Phosphatase 78 U/L (45-117); Anion Gap 9.6 mEq/L (5.0-15.0); BUN Blood Urea Nitrogen 7 mg/dL (7-18); Bilirubin Indirect, Calculated 0.0 mg/dL (0.2-0.8); Globulin 4.0 g/dL (2.3-3.5); Glucose Level 132 mg/dL (74-106); Potassium 3.6 mEq/L (3.5-5.1); Troponin High Sensitivity < 3.0 pg/mL (<58.9)
--- NOTE | 2025-03-09 20:10 | RAD REPORT ---
EXAM: CT brain without contrast HISTORY: MENTAL STATUS CHANGE COMPARISON: 08/22/2024 TECHNIQUE: Multiple contiguous axial images were obtained and a CT of the brain without contrast. Sag ittal and coronal reformats were performed. One or more of the following dose reduction techniques were used: Automated exposure control, adjust ment of the mA and/or kV according to patient size, and/or iterative reconstruction. FINDINGS: No evidence of hydrocephalus, intracranial hemorrhage, or extra-axial fluid collection. The brain is normal in morphology. Deep brain stimulators noted, unchanged in position. No evidence of midline shift or areas of brain edema. The calvarium is intact. The visualized paranasal sinuses and mastoid air cells are essentially clear . EXAM: CT of the cervical spine without contrast HISTORY: Neck pain, injury MENTAL STATUS CHANGE TECHNIQUE: Multiple contiguous axial images were obtained in a CT of the cervical spine without contr ast. Sagittal and coronal reformats were performed. FINDINGS: The vertebral bodies demonstrate normal height and alignment. No evidence of acute fracture or subluxation.. No degenerative changes are present. No prevertebral soft tissue swelling is seen. The posterior facets are well aligned. Normal alignment of the skull base with the cervical spine is seen. The lung apices are unremarkable. COMBINED IMPRESSION: No evidence of acute intracranial abnormality. No evidence of acute osseous abnormality of the cervical spine.
[2025-03-09 21:01] LABS: Urine Microscopic Reflex YN NO UMIC
[2025-03-09 21:21] LABS: METHAMPHETAM NEGATIVE (NEGATIVE); THC Cannibis NEGATIVE (NEGATIVE)
--- NOTE | 2025-03-09 21:27 | ER ---
Nurse's Notes [facility] Name: Heather Hope Age: 34 yrs Sex: Female : 1990 Arrival Date: 03/09/2025 Time: 17:52 Bed 4 Private MD: Diagnosis: Other seizures Presentation: 03/09 18:12 Chief complaint: EMS states: Patient was found on the steps of her apartment slumped os over and reported by friend that she had a seizure, Per EMS. Coronavirus screen: Client denies travel out of the [place] in the last 14 days. Ebola Screen: Patient negative for fever greater than or equal to 101.5 degrees Fahrenheit, and additional compatible Ebola Virus Disease symptoms Patient denies exposure to infectious person. Patient denies travel to an Ebola-affected area in the 21 days before illness onset. Initial Sepsis Screen: Does the patient meet any 2 criteria? No. Patient's initial sepsis screen is negative. Does the patient have a suspected source of infection? No. Patient's initial sepsis screen is negative. Risk Assessment: Do you want to hurt yourself or someone else? Unable to obtain. Onset of symptoms was March 09, 2025. 18:12 Method Of Arrival: EMS: [facility] os 18:12 Acuity: DARLYN 3 os Triage Assessment: 18:19 General: Appears comfortable, Patient is postictal, responding only to physical os stimuli.. Behavior is cooperative, drowsy, unresponsive. Pain: Denies pain. 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 - Infectious Disease History:: Denies. - Social history:: Smoking status: Reported history of juuling and/or vaping. Screenin:15 [facility] ED Fall Risk Assessment (Adult) History of falling in the last 3 months, aa5 including since admission Confusion or Disorientation Yes (5 pts) Intoxicated or Sedated Impaired Gait Mobility Assist Device Used Altered Elimination Score/Fall Risk Level 3 or more points = High Risk Oriented to surroundings, Maintained a safe environment, Educated pt \T\ family on fall prevention, incl call for assistance when getting out of bed, Assessed \T\ reinforced patient's understanding of fall precautions. Abuse screen: No signs of abuse. Nutritional screening: No deficits noted. Tuberculosis screening: No symptoms or risk factors identified. Assessment: 18:15 General: Behavior is drowsy. Pain: Unable to use pain scale. Does not appear to aa5 understand pain scale. Neuro: Level of Consciousness is post ictal, Oriented to none Pt responsive to responsive to tactile stimuli, pt unable to follow commands. . Cardiovascular: Heart tones S1 S2 present Rhythm is regular. Respiratory: Airway is patent Respiratory effort is even, unlabored, Respiratory pattern is regular, symmetrical. GI: No signs and/or symptoms were reported involving the gastrointestinal system. : No signs and/or symptoms were reported regarding the genitourinary system. EENT: No signs and/or symptoms were reported regarding the EENT system. Derm: Skin is pink, warm \T\ dry. Musculoskeletal: Range of motion: intact in all extremities. 19:07 General: Appears in no apparent distress. comfortable, Behavior is calm, cooperative, lg3 drowsy, flat. Pain: Denies pain. Neuro: [place] Agitation-Sedation Scale (RASS): -1 Drowsy Level of Consciousness is post ictal, Oriented to person. Cardiovascular: No deficits noted. Denies chest pain, shortness of breath, Heart tones S1 S2 present Capillary refill < 3 seconds Clubbing of nail beds is absent JVD is absent Patient's skin is warm and dry. Respiratory: No deficits noted. Airway is patent Respiratory effort is even, unlabored, Respiratory pattern is regular, symmetrical. GI: No deficits noted. No signs and/or symptoms were reported involving the gastrointestinal system. : No signs and/or symptoms were reported regarding the genitourinary system. purewick in place. EENT: No deficits noted. No signs and/or symptoms were reported regarding the EENT system. Derm: No deficits noted. No signs and/or symptoms reported regarding the dermatologic system. Skin is intact, is healthy with good turgor, Skin is dry, Skin is normal, Skin temperature is warm. Musculoskeletal: No deficits noted. Circulation, motion, and sensation intact. Range of motion: intact in all extremities. 20:50 Reassessment: Patient states feeling better. Patient states symptoms have improved. lg3 General: Appears in no apparent distress. comfortable, Behavior is calm, cooperative. Pain: Denies pain. Neuro: No deficits noted. [place] Agitation-Sedation Scale (RASS): 0 - Alert and Calm Level of Consciousness is awake, alert, obeys commands, Oriented to person, place, time, situation. 21:39 Reassessment: Patient appears in no apparent distress at this time. Patient and/or bm8 family updated on plan of care and expected duration. Pain level reassessed. Patient is alert, oriented x 3, equal unlabored respirations, skin warm/dry/pink. Patient denies pain at this time. Patient states feeling better. Patient states symptoms have improved. Vital Signs: 18:12 BP 116 / 78; Pulse 98; Resp 14; Temp 98.7(O); Pulse Ox 97% on R/A; os 19:07 BP 138 / 94; Pulse 87; Resp 15 S; Pulse Ox 100% on R/A; lg3 20:50 BP 131 / 85; Pulse 81; Resp 16 S; Pulse Ox 99% on R/A; lg3 21:39 BP 122 / 84; Pulse 86; Resp 20; Temp 98.7; Pulse Ox 100% ; Pain 0/10; bm8 21:39 Pain Scale: Adult bm8 [place] Coma Score: 21:39 Eye Response: spontaneous(4). Motor Response: obeys commands(6). Verbal Response: bm8 oriented(5). Total: 15. ED Course: 18:00 Patient arrived in ED. iw 18:00 Steve Arreaga PA-C is PHCP. cp 18:00 Moi Avalos MD is Attending Physician. cp 18:15 Patient has correct armband on for positive identification. Placed in gown. Bed in low aa5 position. Call light in reach. Side rails up X2. Client placed on continuous cardiac and pulse oximetry monitoring. NIBP monitoring applied. lunchroom monitor on. Pulse ox on. NIBP on. 18:17 Triage completed. os 18:28 Missed attempt(s): 22 gauge in left forearm. Bleeding controlled, band aid applied, aa5 catheter tip intact. 18:30 Initial lab(s) drawn, by me, sent to lab. Inserted saline lock: 22 gauge in left aa5 antecubital area, using aseptic technique. Blood collected. Flushed with 10 mL NS. 18:39 Inserted saline lock: 22 gauge in right antecubital area, using aseptic technique. nh2 Blood collected. Flushed with 10 mL NS. 18:42 No provider procedures requiring assistance completed. aa5 19:[address] to [address] and CLAUDIA Starr. aa5 19:07 Door closed. Noise minimized. Warm blanket given. Pillow given. lg3 19:10 Radiology exam delayed due to test not completed at this time. ls3 19:55 CT Head C Spine In Process Unspecified. EDMS 20:50 Ro Galindo, RN is Primary Nurse. lg3 20:52 UA Rfx Alistair Cult if indicated Sent. lg3 20:52 Test, Urine Sent. lg3 20:52 Urine Drug Screen Sent. lg3 21:39 IV discontinued, intact, bleeding controlled, No redness/swelling at site. Pressure bm8 dressing applied, x2. 21:39 Provided Education on: post er care. bm8 Administered Medications: 18:39 Drug: NS 0.9% IV 1000 ml IV at 1 bolus Per protocol; to be given as a bolus over 60 nh2 minutes Route: IV; Rate: 1 bolus; Site: right antecubital; 21:41 Follow up: Response: No adverse reaction; IV Status: Completed infusion bm8 Medication: 18:42 VIS not applicable for this client. aa5 Outcome: 21:26 Discharge ordered by . familia 21:39 Discharged to home ambulatory, bm8 21:39 Condition: stable 21:39 Discharge instructions given to patient, family, Instructed on discharge instructions, follow up and referral plans. no drinking with medication, no driving heavy equipment, medication usage, safety practices, Demonstrated understanding of instructions, follow-up care, medications, 21:43 Patient left the ED. bm8 Signatures: Dispatcher [employer] Lashawn Guy RN RN iw Sivan Nash RN RN aa5 Steve Arreaga, PA-C PA-C Kameron Gomes ls3 Ro Galindo RN RN 3 Karsten Alejandra RN RN os McDonald, Brad, RN RN bm8 Cj Hernández Jr, RN RN nh2 Corrections: (The following items were deleted from the chart) 18:37 18:00 Inserted saline lock: 22 gauge in left antecubital area, using aseptic technique. aa5 Blood collected. Flushed with 10 mL NS aa5 18:37 18:00 Initial lab(s) drawn, by me, sent to lab. aa5 aa5 18:41 18:05 General: Behavior is drowsy, aa5 aa5 18:41 18:05 Pain: Unable to use pain scale. Does not appear to understand pain scale. aa5 aa5 18:41 18:05 Neuro: Level of Consciousness is post ictal, Oriented to none Pt responsive to aa5 responsive to tactile stimuli, pt unable to follow commands. . aa5 18:41 18:05 Cardiovascular: Heart tones S1 S2 present Rhythm is regular aa5 aa5 18:41 18:05 Respiratory: Airway is patent Respiratory effort is even, unlabored, Respiratory aa5 pattern is regular, symmetrical, aa5 18:41 18:05 GI: No signs and/or symptoms were reported involving the gastrointestinal system. aa5 aa5 18:41 18:05 : No signs and/or symptoms were reported regarding the genitourinary system. aa5aa5 18:41 18:05 EENT: No signs and/or symptoms were reported regarding the EENT system. aa5 aa5 18:41 18:05 Derm: Skin is pink, warm \T\ dry. aa5 aa5 18:41 18:05 Musculoskeletal: Range of motion: intact in all extremities, aa5 aa
--- NOTE | 2025-03-09 21:27 | EDPHYS ---
Physician Documentation [facility] Name: Heather Hope Age: 34 yrs Sex: Female : 1990 Arrival Date: 03/09/2025 Time: 17:52 Bed 4 Private MD: ED Physician Moi Avalos HPI: 03/09 18:13 This 34 yrs old Female presents to ER via EMS with complaints of Altered Mental Status. cp 18:13 The patient presents with decreased mental status. Onset: The symptoms/episode cp began/occurred at an unknown time. Possible causes: known seizure disorder. 18:13 Associated signs and symptoms: Pertinent positives: confusion, Pertinent negatives: cp abdominal pain, chest pain. Patient's baseline: Neuro: alert and fully oriented, Motor: no deficits, Ambulation: walks without assistance, Speech: normal. 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 Patient is currently somnolent and able to answer name. Patient is arousable by sternal rub. 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 - Infectious Disease History:: Denies. - Social history:: Smoking status: Reported history of juuling and/or vaping. ROS: 18:15 Constitutional: Negative for fever, cp 18:15 Neuro: Positive for altered mental status, cp 18:15 Unable to obtain ROS due to altered mental status, cp Exam: 18:20 Constitutional: The patient appears in no acute distress, non-diaphoretic, non-toxic, cp well developed, well nourished, 18:20 Head/Face: Normocephalic, atraumatic. cp 18:20 Eyes: Periorbital structures: appear normal, Pupils: equal, round, and reactive to light and accomodation, Conjunctiva: normal, no exudate, no injection, Sclera: no appreciated abnormality, Lids and lashes: appear normal, bilaterally, 18:20 ENT: External ear(s): are unremarkable, Ear canal(s): are normal, clear, TM's: dullness, bilaterally, Nose: is normal, Mouth: Lips: moist, Oral mucosa: moist, Posterior pharynx: Airway: no evidence of obstruction, patent, 18:20 Neck: C-spine: vertebral tenderness, is not appreciated, crepitus, is not appreciated, 18:20 Chest/axilla: Inspection: normal, Palpation: crepitus, is not appreciated, tenderness, is not appreciated, 18:20 Cardiovascular: Rate: normal, Rhythm: regular, Edema: is not appreciated, JVD: is not appreciated, 18:20 Respiratory: the patient does not display signs of respiratory distress, Respirations: normal, no use of accessory muscles, no retractions, labored breathing, is not present, Breath sounds: are clear throughout, no decreased breath sounds, no stridor, no wheezing, 18:20 Abdomen/GI: Inspection: abdomen appears normal, Palpation: abdomen is soft and non-tender, in all quadrants, 18:20 Neuro: Orientation: to person, Mentation: somnolent, Motor: moves all fours, no focal deficits, 18:22 ECG was reviewed by the Attending Physician. cp Vital Signs: 18:12 BP 116 / 78; Pulse 98; Resp 14; Temp 98.7(O); Pulse Ox 97% on R/A; os 19:07 BP 138 / 94; Pulse 87; Resp 15 S; Pulse Ox 100% on R/A; lg3 20:50 BP 131 / 85; Pulse 81; Resp 16 S; Pulse Ox 99% on R/A; lg3 21:39 BP 122 / 84; Pulse 86; Resp 20; Temp 98.7; Pulse Ox 100% ; Pain 0/10; bm8 21:39 Pain Scale: Adult bm8 [place] Coma Score: 21:39 Eye Response: spontaneous(4). Motor Response: obeys commands(6). Verbal Response: bm8 oriented(5). Total: 15. MDM: 18:00 Medical Screening Exam initiated :25 Data reviewed: vital signs, nurses notes, lab test result(s), EKG, radiologic studies, cp CT scan. 21:25 I considered the following discharge prescriptions or medication management in the emergency department Medications were administered in the Emergency Department. See MAR. Independent interpretation of the following test(s) in the Emergency Department EKG: See my EKG interpretation above. Care significantly affected by the following chronic conditions: seizure disorder. Counseling: I had a detailed discussion with the patient and/or guardian regarding the historical points, exam findings, and any diagnostic results supporting the discharge/admit diagnosis, lab results, radiology results. Response to treatment: the patient's symptoms have markedly improved after treatment. ED course: Vital signs stable. Reevaluation patient alert and oriented x 3 and answering questions appropriately. Reviewed labs and radiology studies. No seizure type activity observed while monitoring patient in the emergency department. Will discharge to home for continued monitoring. 03/09 18:10 Order name: Acetaminophen; Complete Time: 19:11 03/09 18:10 Order name: Basic Metabolic Panel; Complete Time: 19:11 03/09 19:12 Interpretation: Normal except: GLUC 132. 03/09 18:10 Order name: CBC with Diff; Complete Time: 19:11 03/09 19:12 Interpretation: Normal except: HGB 9.4; HCT 30.6; MCV 67.4; MCH 20.8; MCHC 30.8; RDW cp 19.7. 03/09 18:10 Order name: ETOH Level; Complete Time: 19:11 03/09 18:10 Order name: Hepatic Function; Complete Time: 19:11 03/09 21:24 Interpretation: IBILI, CALC 0.0; GLOB 4.0; A/G 1.0; Reviewed. 03/09 18:10 Order name: PT-INR; Complete Time: 19:11 03/09 18:10 Order name: Test, Urine; Complete Time: 21:23 03/09 18:10 Order name: Ptt, Activated; Complete Time: 19:11 03/09 18:10 Order name: Salicylate; Complete Time: :23 03/09 18:10 Order name: Urine Drug Screen; Complete Time: :23 03/09 18:10 Order name: UA Rfx Alistair Cult if indicated; Complete Time: 21:23 cp 03/09 21:24 Interpretation: Normal except: UKET 1+. cp 03/09 18:10 Order name: Tegretol Level; Complete Time: 19:11 cp 03/09 19:12 Interpretation: Abnormal: CARB 12.3. cp 03/09 18:10 Order name: Troponin High Sensitivity; Complete Time: 19:11 cp 03/09 18:10 Order name: CK; Complete Time: 19:11 cp 03/09 18:54 Order name: CBC Smear Scan; Complete Time: 19:11 EDMS 03/09 18:10 Order name: CT Head C Spine; Complete Time: 20:12 cp 03/09 20:12 Interpretation: Reviewed report. cp 03/09 18:10 Order name: EKG; Complete Time: 18:10 cp 03/09 18:10 Order name: EKG - Nurse/Tech; Complete Time: 18:37 cp 03/09 18:10 Order name: IV Saline Lock; Complete Time: 18:37 cp 03/09 18:10 Order name: Labs collected and sent; Complete Time: 18:37 cp 03/09 18:10 Order name: Suicide Screening ([place]); Complete Time: 20:52 cp EC:22 Rate is 98 beats/min. Rhythm is regular. MI interval is normal. QRS interval is normal. cp QT interval is normal. T waves are Inverted in leads aVR, V2. Interpreted by me. Reviewed by me. Administered Medications: 18:39 Drug: NS 0.9% IV 1000 ml IV at 1 bolus Per protocol; to be given as a bolus over 60 nh2 minutes Route: IV; Rate: 1 bolus; Site: right antecubital; 21:41 Follow up: Response: No adverse reaction; IV Status: Completed infusion bm8 Disposition: 03/10 20:19 Chart complete. cp Disposition Summary: 03/09/25 21:26 Discharge Ordered Notes: Location: Home cp Problem: an acute exacerbation cp Symptoms: have improved cp Condition: Stable cp Diagnosis - Other seizures cp Followup: cp - With: Private Physician - When: primary neurologist - Reason: Recheck today's complaints Discharge Instructions: - Discharge Summary Sheet cp - Seizure, Adult cp Forms: - Medication Reconciliation Form cp - Antibiotic Education cp - Prescription Opioid Use cp - Patient Portal Instructions cp - Leadership Thank You Letter cp Addendum: 03/11/2025 07:03 Co-signature as Attending Physician, Moi Avalos MD I reviewed the patient's care r n provided by the Advanced Practice Provider and agree with the diagnosis and treatment plan. Signatures: Dispatcher [employer] Moi Tolentino MD MD rn Steve Arreaga, PA-C PA-C Karsten Christine RN RN os Cj Hernández Jr, RN RN [facility] Seamus Amaya RN bm8 Corrections: (The following items were deleted from the chart) 03/09 18:11 18:10 Troponin High Sensitivity+C.LAB.BRZ ordered. EDMS EDMS 18:11 18:10 CREATINE PHOSPHOKINASE+C.LAB.BRZ ordered. EDMS EDMS 20:52 18:10 Pope ordered. cp lg3
[2025-03-09 21:47] VITALS: TEMP 98.7
[2025-03-09 21:52] VITALS: BP 122/84; O2SAT 100
== END 2025-03-09 21:43 | disposition home or self-care (01) ==
LOC: ER 17:52
DX: G40.89 Other seizures (principal)
CPT/HCPCS: 96361; 93005; 85025; 80048; 36415; 82550; 80156; 81025; 85610; 80076; 85730; 81003; 84484; 80307; 70450; 72125; 96360; 99285; 80143; 80179; 82077; J7030